=== PATIENT | female | born 1965 | race Caucasian/White ===

== ENCOUNTER 2018-06-09 21:37 | Emergency (ER) | payer BC, SELFPAY ==
[2018-06-09 21:42] VITALS: BP 123/68; PULSE 70; RESP 16; TEMP 37.2; O2SAT 99
--- NOTE | 2018-06-09 21:57 | DI.RAD_ITS ---
SYMPTOMS/DIAGNOSIS: LATERAL FOOT PAIN S/P FALL RIGHT ANKLE: There is no evidence of a fracture or dislocation. RIGHT FOOT: The possibility of a tiny avulsion fracture arising from the distal lateral aspect of the calcaneus is raised. There is no other evidence of a fracture or dislocation. The joint spaces appear intact. No radiopaque foreign body is identified. SUMMARY: Possible small avulsion fracture involving the distal calcaneus with some associated soft tissue swelling. RIGHT LEG: Postsurgical changes involving the proximal tibia are identified. There is no evidence of a feature or dislocation. Note is made of mild soft tissue swelling over the anterior portion of the ankle. SUMMARY: There is no evidence of an acute fracture or dislocation. Soft tissue swelling is identified.
--- NOTE | 2018-06-09 21:59 | W.ED.GENAD ---
Discharge Plan Disposition Patient Disposition: HOME Condition: Stable Discharge Details Chief Complaint: Orthopedic Clinical Impression: Avulsion fracture of calcaneus, Contusion of multiple sites of right leg Reason For Visit: right foot pain Primary Care Provider: Doreen Larios ED Provider: Lowell Espinosa Home Meds and New Rx's Prescriptions: No Action galantamine 12 mg tablet 12 mg PO BID Qty: 60 RF: 6 sumatriptan succinate [Imitrex] 100 MG tablet 100 mg PO ONCE RF: 0 clotrimazole-betamethasone [Lotrisone] 45 GM cream 45 gm Topical PRN RF: 0 montelukast [Singulair] 10 MG tablet 10 mg PO DAILY RF: 0 albuterol sulfate [ProAir HFA] 8.5 GM HFA aerosol inhaler 2 puff Inhalation Q6H PRN RF: 0 estradiol 1 EACH patch weekly 1 ea Transdermal . DIRECTED RF: 0 cetirizine 10 MG tablet 10 mg PO DAILY RF: 0 hydrocortisone valerate 15 GM cream 15 gm Topical BID RF: 0 nifedipine [Adalat CC] 30 MG tablet extended release 30 mg PO DAILY RF: 0 omeprazole 20 MG capsule,delayed release(DR/EC) 20 mg PO BID RF: 0 budesonide-formoterol [Symbicort] 10.2 GM HFA aerosol inhaler 1 puff Inhalation BID RF: 0 azelastine-fluticasone [Dymista] 23 GM spray,non-aerosol 23 gm NS BID RF: 0 linaclotide [Linzess] 145 MCG capsule 145 mcg PO EVERY OTHER DAY RF: 0 linaclotide [Linzess] 72 MCG capsule 72 mcg PO EVERY OTHER DAY RF: 0 memantine [Namenda] 5 MG tablet 5 mg PO BID Qty: 60 RF: 6 Discharge Instructions Instructions: Contusion in Adults (ED), Avulsion Fracture (ED) Additional Instructions: You may continue to use [id number] pain medications such as ibuprofen or acetaminophen as needed for discomfort. Apply ice to help with swelling. You may perform weightbearing activities as tolerated but you should wear the walking boot until cleared by orthopedist Stand Alone Forms: Work Release Referrals: Reagan Johnston MD [ [facility] STAFF PHYSICIAN] - (Call the office tomorrow for arrangement of follow-up appointment. ) Discharge Data Discharge Date/Time-TO BE ENTERED AT DEPARTURE: 10/15/18 23:47 Medical Decision Making Patient presenting to the emergency department for chief complaint of fall. Patient reports that she actually fell down a couple steps this morning and twisted her right lower leg up underneath her. She states some mild bruising and swelling that she noted this morning but was able to perform some weightbearing activities. Throughout the course of the day pain swelling and bruising has become worsened and she has had minimal weightbearing ability given worsening of symptoms she is presenting to the emergency department for evaluation. Patient describes diffuse pain from knee all the way through lower extremity but most sensitive area of pain is within the lateral foot. There is also ecchymosis noted to the lateral foot. Patient has appropriate pulse sensation and movement but movement is limited by pain. Plan to perform radiological imaging of the lower extremity to rule out any acute fracture but suspicious of multiple contusions. She took ibuprofen prior to arrival and has provided no relief so patient given Tylenol 3# pending results. Review of radiological imaging shows a possible lateral calcaneus avulsion fracture otherwise soft tissue swelling. Patient reassessed and does state significant more pain in palpation of the lateral calcaneus. patient placed in a walking boot and diagnosed with avulsion fracture along with multiple contusions. Patient was placed on the orthopedic follow-up list due to avulsion fracture. After discussion of diagnosis and plan of care patient has no further needs, questions, or concerns and states clear understanding to return to the emergency department for any worsening symptoms. HPI General Mode of arrival: wheelchair. Date/Time Provider Initiated Documentation: 06/09/18 21:50. Limitations to Documentation: no limitations. Information obtained by: patient. History of Present Illness 52 year old F presents to the emergency department with the chief complaint of Right foot pain, described as moderate, with intensity rated at 5. Quality is described as aching, and is localized to the right and lower extremity. Patient proximal. Patient started experiencing this hour(s) (14) and it has been constant. No relieving factors improve symptom(s), No exacerbating factors reported . Patient notes no other symptoms.. Patient did receive the following treatments prior to arrival, NSAID Related Data Home Medications Medication Instructions Recorded Confirmed albuterol sulfate [ProAir HFA] 2 puff INHALATION Q6H PRN inhaler 03/28/15 05/05/18 NS clotrimazole-betamethasone 45 gm TOPICAL PRN NS 03/28/15 06/09/18 [Lotrisone] estradiol 1 ea TRANSDERMAL . DIRECTED 03/28/15 06/09/18 script NS montelukast [Singulair] 10 mg PO DAILY tab-cap NS 03/28/15 05/05/18 sumatriptan succinate [Imitrex] 100 mg PO ONCE tab-cap NS 03/28/15 06/09/18 azelastine-fluticasone [Dymista 23 gm NS BID script 11/11/17 06/09/18 Nasal [place]] budesonide-formoterol [Symbicort 1 puff INHALATION BID inhaler 11/11/17 05/05/18 160/4.5 Mcg Inhaler] cetirizine 10 mg PO DAILY tab-cap 11/11/17 06/09/18 hydrocortisone valerate 15 gm TOPICAL BID 11/11/17 06/09/18 linaclotide [Linzess] 72 mcg PO EVERY OTHER DAY 11/11/17 06/09/18 linaclotide [Linzess] 145 mcg PO EVERY OTHER DAY 11/11/17 06/09/18 nifedipine [Adalat Cc] 30 mg PO DAILY tab-cap 11/11/17 06/09/18 omeprazole 20 mg PO BID tab-cap 11/11/17 06/09/18 memantine [Namenda] 5 mg PO BID #60 tab-cap 04/22/18 06/09/18 galantamine 12 mg tablet 12 mg PO BID #60 tab 05/05/18 06/09/18 Previous Rx's Medication Instructions Recorded memantine [Namenda] 5 mg PO BID #60 tab-cap 04/22/18 galantamine 12 mg tablet 12 mg PO BID #60 tab 05/05/18 Allergies Allergy/AdvReac Type Severity Reaction Status Date / Time animal,grass,smoke,tree Allergy Unknown Uncoded 06/09/18 21:46 pllen, molds contrast dye Allergy Unknown Uncoded 06/09/18 21:46 General Stated Complaint: Orthopedic YANETH: 4 Review of Systems Constitutional Reports system reviewed and no additional complaints, except as docu Cardiovascular Reports system reviewed and no additional complaints, except as docu Respiratory Reports system reviewed and no additional complaints, except as docu Musculoskeletal Reports as per HPI Neurologic Denies sensory deficit PFSH Family History Other Personal history of malignant neoplasm Medical History Postnasal drip (Chronic 04/05/14) Allergic rhinitis (Chronic 11/04/13) 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) Screening for colorectal cancer (Chronic) Mild cognitive impairment (Chronic) Asthma Chondromalacia Depression History of gastroesophageal reflux (GERD) History of kidney stones Migraine Social History Smoking/Tobacco Use Status: Never Surgical History Colonoscopy - IV Sedation (05/27/15) Knee surgery Exam Const General: not in acute distress and not diaphoretic Orientation: alert, awake and oriented x3 Resp Effort & Inspection: normal respiratory effort and able to speak in complete sentences Cardio Rate: regular rate Rhythm: regular rhythm Extrem Right lower extremity: hip/thigh Details: normal to inspection; no tenderness, knee Details: normal ROM, lower leg Details: tenderness Location: of the posterior calf, of the proximal fibula, of the midshaft tibia, of the midshaft fibula, of the distal tibia and of the distal fibula, ankle Details: tenderness (Diffuse), swelling Details: diffusely and normal ROM and foot Details: normal capillary refill, tenderness Location: of the dorsal foot Location: laterally, of the plantar foot, of the lateral foot Location: in the mid-section, proximally and at the base of 5th metatarsal and of the base of the 5th metatarsal and ecchymosis Course Vital Signs Temperature 37.2 C 06/09/18 21:42 Pulse 70 06/09/18 21:42 Respiratory Rate 16 06/09/18 21:42 Blood Pressure 123/68 06/09/18 21:42 Pulse Oximetry 99 06/09/18 21:42 Temperature 37.2 C 06/09/18 21:42 Temperature Source Temporal Artery Scan 06/09/18 21:42 Pulse 70 06/09/18 21:42 Respiratory Rate 16 06/09/18 21:42 Blood Pressure 123/68 06/09/18 21:42 Pulse Oximetry 99 06/09/18 21:42 Oxygen Delivery Method Room Air 06/09/18 21:42 Oxygen Flow Rate 0 06/09/18 21:42 Pain Level 5 06/09/18 21:42
--- NOTE | 2018-06-09 22:15 | ED.GENADUL_ITS ---
Discharge Plan Disposition Patient Disposition: HOME Condition: Stable Discharge Details Chief Complaint: Orthopedic Clinical Impression: Avulsion fracture of calcaneus, Contusion of multiple sites of right leg Reason For Visit: right foot pain Primary Care Provider: Doreen Larios ED Provider: Lowell Espinosa Home Meds and New Rx's Prescriptions: No Action galantamine 12 mg tablet 12 mg PO BID Qty: 60 RF: 6 sumatriptan succinate [Imitrex] 100 MG tablet 100 mg PO ONCE RF: 0 clotrimazole-betamethasone [Lotrisone] 45 GM cream 45 gm Topical PRN RF: 0 montelukast [Singulair] 10 MG tablet 10 mg PO DAILY RF: 0 albuterol sulfate [ProAir HFA] 8.5 GM HFA aerosol inhaler 2 puff Inhalation Q6H PRN RF: 0 estradiol 1 EACH patch weekly 1 ea Transdermal . DIRECTED RF: 0 cetirizine 10 MG tablet 10 mg PO DAILY RF: 0 hydrocortisone valerate 15 GM cream 15 gm Topical BID RF: 0 nifedipine [Adalat CC] 30 MG tablet extended release 30 mg PO DAILY RF: 0 omeprazole 20 MG capsule,delayed release(DR/EC) 20 mg PO BID RF: 0 budesonide-formoterol [Symbicort] 10.2 GM HFA aerosol inhaler 1 puff Inhalation BID RF: 0 azelastine-fluticasone [Dymista] 23 GM spray,non-aerosol 23 gm NS BID RF: 0 linaclotide [Linzess] 145 MCG capsule 145 mcg PO EVERY OTHER DAY RF: 0 linaclotide [Linzess] 72 MCG capsule 72 mcg PO EVERY OTHER DAY RF: 0 memantine [Namenda] 5 MG tablet 5 mg PO BID Qty: 60 RF: 6 Discharge Instructions Instructions: Contusion in Adults (ED), Avulsion Fracture (ED) Additional Instructions: You may continue to use [id number] pain medications such as ibuprofen or acetaminophen as needed for discomfort. Apply ice to help with swelling. You may perform weightbearing activities as tolerated but you should wear the walking boot until cleared by orthopedist Stand Alone Forms: Work Release Referrals: Reagan Johnston MD [ [facility] STAFF PHYSICIAN] - (Call the office tomorrow for arrangement of follow-up appointment. ) Discharge Data Discharge Date/Time-TO BE ENTERED AT DEPARTURE: 10/15/18 23:47 Medical Decision Making Patient presenting to the emergency department for chief complaint of fall. Patient reports that she actually fell down a couple steps this morning and twisted her right lower leg up underneath her. She states some mild bruising and swelling that she noted this morning but was able to perform some weightbearing activities. Throughout the course of the day pain swelling and bruising has become worsened and she has had minimal weightbearing ability given worsening of symptoms she is presenting to the emergency department for evaluation. Patient describes diffuse pain from knee all the way through lower extremity but most sensitive area of pain is within the lateral foot. There is also ecchymosis noted to the lateral foot. Patient has appropriate pulse sensation and movement but movement is limited by pain. Plan to perform radiological imaging of the lower extremity to rule out any acute fracture but suspicious of multiple contusions. She took ibuprofen prior to arrival and has provided no relief so patient given Tylenol 3# pending results. Review of radiological imaging shows a possible lateral calcaneus avulsion fracture otherwise soft tissue swelling. Patient reassessed and does state significant more pain in palpation of the lateral calcaneus. patient placed in a walking boot and diagnosed with avulsion fracture along with multiple contusions. Patient was placed on the orthopedic follow-up list due to avulsion fracture. After discussion of diagnosis and plan of care patient has no further needs, questions, or concerns and states clear understanding to return to the emergency department for any worsening symptoms. HPI General Mode of arrival: wheelchair . Date/Time Provider Initiated Documentation: 06/09/18 21:50 . Limitations to Documentation: no limitations . Information obtained by: patient . History of Present Illness 52 year old F presents to the emergency department with the chief complaint of Right foot pain, described as moderate, with intensity rated at 5. Quality is described as aching, and is localized to the right and lower extremity. Patient proximal. Patient started experiencing this hour(s) (14) and it has been constant. No relieving factors improve symptom(s), No exacerbating factors reported . Patient notes no other symptoms.. Patient did receive the following treatments prior to arrival, NSAID Related Data Home Medications Medication Instructions Recorded Confirmed albuterol sulfate [ProAir HFA] 2 puff INHALATION Q6H PRN inhaler 03/28/1505/05 NS clotrimazole-betamethasone 45 gm TOPICAL PRN NS 03/28/15 06/09/18 [Lotrisone] estradiol 1 ea TRANSDERMAL . DIRECTED 03/28/15 06/09/18 script NS montelukast [Singulair] 10 mg PO DAILY tab-cap NS 03/28/15 05/05/18 sumatriptan succinate [Imitrex] 100 mg PO ONCE tab-cap NS 03/28/15 06/09/18 azelastine-fluticasone [Dymista 23 gm NS BID script 11/11/17 06/09/18 Nasal [place]] budesonide-formoterol [Symbicort 1 puff INHALATION BID inhaler 11/11/17 160/4.5 Mcg Inhaler] cetirizine 10 mg PO DAILY tab-cap 11/11/17 06/09/18 hydrocortisone valerate 15 gm TOPICAL BID 11/11/17 06/09/18 linaclotide [Linzess] 72 mcg PO EVERY OTHER DAY 11/11/17 06/09/18 linaclotide [Linzess] 145 mcg PO EVERY OTHER DAY 11/11/17 06/09/18 nifedipine [Adalat Cc] 30 mg PO DAILY tab-cap 11/11/17 06/09/18 omeprazole 20 mg PO BID tab-cap 11/11/17 06/09/18 memantine [Namenda] 5 mg PO BID #60 tab-cap 04/22/18 06/09/18 galantamine 12 mg tablet 12 mg PO BID #60 tab 05/05/18 06/09/18 Previous Rx's Medication Instructions Recorded memantine [Namenda] 5 mg PO BID #60 tab-cap 04/22/18 galantamine 12 mg tablet 12 mg PO BID #60 tab 05/05/18 Allergies Allergy/AdvReac Type Severity Reaction Status Date / Time animal,grass,smoke,tree Allergy Unknown Uncoded 06/09/18 21:46 pllen, molds contrast dye Allergy Unknown Uncoded 06/09/18 21:46 General Stated Complaint: Orthopedic YANETH: 4 Review of Systems Constitutional Reports system reviewed and no additional complaints, except as docu Cardiovascular Reports system reviewed and no additional complaints, except as docu Respiratory Reports system reviewed and no additional complaints, except as docu Musculoskeletal Reports as per HPI Neurologic Denies sensory deficit PFSH Family History Other Personal history of malignant neoplasm Medical History Postnasal drip (Chronic 04/05/14) Allergic rhinitis (Chronic 11/04/13) 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) Screening for colorectal cancer (Chronic) Mild cognitive impairment (Chronic) Asthma Chondromalacia Depression History of gastroesophageal reflux (GERD) History of kidney stones Migraine Social History Smoking/Tobacco Use Status: Never Surgical History Colonoscopy - IV Sedation (05/27/15) Knee surgery Exam Const General: not in acute distress and not diaphoretic Orientation: alert, awake and oriented x3 Resp Effort & Inspection: normal respiratory effort and able to speak in complete sentences Cardio Rate: regular rate Rhythm: regular rhythm Extrem Right lower extremity: hip/thigh Details: normal to inspection; no tenderness, knee Details: normal ROM, lower leg Details: tenderness Location: of the posterior calf, of the proximal fibula, of the midshaft tibia, of the midshaft fibula, of the distal tibia and of the distal fibula, ankle Details: tenderness (Diffuse), swelling Details: diffusely and normal ROM and foot Details: normal capillary refill, tenderness Location: of the dorsal foot Location: laterally, of the plantar foot, of the lateral foot Location: in the mid-section, proximally and at the base of 5th metatarsal and of the base of the 5th metatarsal and ecchymosis Course Vital Signs Temperature 37.2 C 06/09/18 21:42 Pulse 70 06/09/18 21:42 Respiratory Rate 16 06/09/18 21:42 Blood Pressure 123/68 06/09/18 21:42 Pulse Oximetry 99 06/09/18 21:42 Temperature 37.2 C 06/09/18 21:42 Temperature Source Temporal Artery Scan 06/09/18 21:42 Pulse 70 06/09/18 21:42 Respiratory Rate 16 06/09/18 21:42 Blood Pressure 123/68 06/09/18 21:42 Pulse Oximetry 99 06/09/18 21:42 Oxygen Delivery Method Room Air 06/09/18 21:42 Oxygen Flow Rate 0 06/09/18 21:42 Pain Level 5 06/09/18 21:42
--- NOTE | 2018-06-09 22:45 | DI.VRAD_ITS ---
EXAM: XR Right Ankle Complete, 3 or more Views EXAM DATE/TIME: 06/09/2018 10:00 PM CLINICAL HISTORY: 52 years old, female; Pain; Ankle; Right; Patient HX: Fall, lateral ankle pain TECHNIQUE: XR Right ankle 3 or more views. COMPARISON: No relevant prior studies available. FINDINGS: Bones/joints: Bone mineralization is age-appropriate. There is no evidence of fracture. No evidence of dislocation. The joint spaces are adequately preserved; no significant degenerative narrowing and no bony erosion seen. Soft tissues: No radiopaque foreign body present. There is soft tissue swelling present. IMPRESSION: 1. No acute osseous abnormality. 2. Soft tissue swelling only. Dictated and Authenticated by: Weston Izquierdo MD. Ordering:AUGUST CHAWLA MD
--- NOTE | 2018-06-09 22:47 | DI.VRAD_ITS ---
EXAM: XR Right Foot Complete, 3 or more Views EXAM DATE/TIME: 06/09/2018 10:00 PM CLINICAL HISTORY: 52 years old, female; Pain; Foot; Right; Patient HX: Fall, lateral foot pain TECHNIQUE: XR Right foot 3 or more views. COMPARISON: No relevant prior studies available. FINDINGS: Bones/joints: There may be a tiny avulsion fracture arising from the distal lateral aspect of the calcaneus. Bone mineralization is age-appropriate. There is no other evidence of fracture. No evidence of dislocation. The joint spaces are adequately preserved; no significant degenerative narrowing and no bony erosion seen. Soft tissues: No radiopaque foreign body present. There is soft tissue swelling present. IMPRESSION: Possible avulsion fracture of the distal calcaneus with soft tissue swelling. Dictated and Authenticated by: Weston Izquierdo MD. Ordering:AUGUST CHAWLA MD
--- NOTE | 2018-06-09 22:49 | DI.VRAD_ITS ---
EXAM: XR Right Tibia and Fibula, 2 Views EXAM DATE/TIME: 06/09/2018 10:18 PM CLINICAL HISTORY: 52 years old, female; Pain; Ankle and lower leg; Right; Prior surgery; Patient HX: Fall, distal tib/fib, lat ankle, lat foot pain TECHNIQUE: XR Right tibia and fibula 2 views COMPARISON: No relevant prior studies available. FINDINGS: Bones/joints: Old surgical changes seen in the proximal right tibia. Bone mineralization is age-appropriate. There is no evidence of fracture. No evidence of dislocation. The joint spaces are adequately preserved; no significant degenerative narrowing and no bony erosion seen. Soft tissues: Mild soft tissue swelling seen at the anterior ankle. No radiopaque foreign body present. IMPRESSION: 1. No acute osseous abnormality. 2. Soft tissue swelling only. Dictated and Authenticated by: Weston Izquierdo MD. Ordering:AUGUST CHALWA MD
== END 2018-06-09 23:47 | disposition home or self-care (01) ==
PROVIDERS: Emergency Provider Nurse Practitioner Family; PCP Physician Assistant Medical
DX: S92.034A Nondisplaced avulsion fracture of tuberosity of right calcaneus, initial encounter for closed fracture (principal); S80.11XA Contusion of right lower leg, initial encounter; W10.8XXA Fall (on) (from) other stairs and steps, initial encounter
CPT/HCPCS: 28400; 73590; 73610; 73630; L4361

== ENCOUNTER 2018-08-04 14:49 | Outpatient (CLI) | payer BC, SELFPAY ==
--- NOTE | 2018-08-04 14:45 | DI.RAD_ITS ---
SYMPTOM/DIAGNOSIS: F/U RT ANKLE FX RIGHT ANKLE: Comparison is made with 09 Jun 2018. No fracture or other bony abnormality is seen. The ankle mortise is not widened. IMPRESSION: Negative right ankle.
== END 2018-08-04 15:09 ==
PROVIDERS: PCP Physician Assistant Medical; Visit Provider Orthopaedic Surgery
DX: S92.034D Nondisplaced avulsion fracture of tuberosity of right calcaneus, subsequent encounter for fracture with routine healing (principal)
CPT/HCPCS: 73610

== ENCOUNTER 2018-12-09 10:29 | Outpatient (REF) | payer BC, SELFPAY ==
[2018-12-09 22:13] LABS: Abs Immature Grans 0.01 k/cumm (0.0-0.09); Absolute Basophil Count 0.06 k/cumm (0.0-0.2); Absolute Eosinophil Count 0.05 k/cumm (0.0-0.7); Absolute Lymphocyte Count 1.04 k/cumm (1.2-3.4); Absolute Monocyte Count 0.39 k/cumm (0.11-0.7); Absolute Neutrophil Count 2.95 k/cumm (1.2-6.7); Basophils % 1.3; Eosinophils % 1.1; HCT 45.3 % (36.0-46.0); Immature Grans % 0.2; Lymphocytes % 23.1; Mean Corp. HGB Concentration 33.1 g/dL (32.0-36.0); Mean Corpuscular Hemoglobin 30.8 pg (27.0-33.0); Mean Platelet Volume 10.1 fL (8.0-11.0); Monocytes % 8.7; Neutrophils % 65.6; Platelet Count 197 x1000/uL (130-400); RBC 4.87 m/cumm (4.00-5.20); RBC Distribution Width 13.8 % (11.7-14.6)
[2018-12-09 22:26] LABS: Anion Gap 7.9 mmol/L (3-11); BUN 18 mg/dL (7-18); CO2 29.1 mmol/L (21.0-32.0); CREATININE 0.83 mg/dL (0.55-1.02); Calcium 8.5 mg/dL (8.5-10.1); Chloride 102 mmol/L (98-107); Cholesterol 182 mg/dL (50-200); Ferritin 72 ng/mL (8-388); Glucose 83 mg/dL (70-100); HDL Cholesterol 68 mg/dL (40-60); LDL CHOLESTEROL 100 mg/dL (<100); Sodium 139 mmol/L (136-145); TSH 2.63 uIU/mL (0.358-3.74); Triglyceride 70 mg/dL (30-150)
[2018-12-09 22:29] LABS: Folate > 20.0 ng/mL (8.6-20.0)
[2018-12-09 22:31] LABS: Hemoglobin A1C 5.5 % (4.5-6.2)
== END 2018-12-09 10:49 ==
LOC: NCHCN 10:29
PROVIDERS: PCP Physician Assistant Medical; Visit Provider Nurse Practitioner Family
DX: R53.83 Other fatigue (principal); G47.00 Insomnia, unspecified; L65.9 Nonscarring hair loss, unspecified; J45.998 Other asthma
CPT/HCPCS: 80048; 80061; 83721; 82728; 82746; 83036; 84443; 85025

== ENCOUNTER 2020-03-30 03:20 | Outpatient (CLI) | payer BC, SELFPAY ==
--- NOTE | 2020-03-30 | DI.MRI_ITS ---
EXAM: MR UPPER JOINT LT WO CLINICAL HISTORY: NONTRAUMATIC TEAR LT SUPRASPINATUS TENDON, PAIN. TECHNIQUE: Multiplanar multisequence MRI was performed. COMPARISON: No exams were available for comparison FINDINGS: MR examination of the shoulder was performed according to the usual protocol. There is no significant effusion of the glenohumeral joint. No fluid in the subacromial subdeltoid b ursa. Bones and labrum: No bony signal abnormality seen. Glenoid labrum appears intact. Rotator cuff: Supraspinatus, subscapularis, infraspinatus, and teres minor muscles and tendons show normal signal and no evidence of a tear. Rotator interval structures are unremarkable with no evidence of a tear. Biceps tendon and anchor: Biceps tendon and anchor show normal signal and no evidence of a tear. Bic eps tendon is normally positioned in the bicipital groove. IMPRESSION: Negative shoulder MRI. DATA REPOSITORY:
== END 2020-03-30 03:40 ==
PROVIDERS: PCP Nurse Practitioner Family; Visit Provider Specialist
DX: M25.512 Pain in left shoulder (principal)
CPT/HCPCS: 73221

== ENCOUNTER 2020-08-10 01:27 | Outpatient (CLI) | payer BC, SELFPAY ==
[2020-08-10 08:13] LABS: Calculated LDL 99 mg/dL (<100); Cholesterol 184 mg/dL (<200); Glucose 81 mg/dL (74-106); HDL Cholesterol 76 mg/dL (40-60); Triglyceride 47 mg/dL (<150)
== END 2020-08-10 01:47 ==
PROVIDERS: PCP Nurse Practitioner Family; Visit Provider Nurse Practitioner Family
DX: Z00.00 Encounter for general adult medical examination without abnormal findings (principal); Z13.220 Encounter for screening for lipoid disorders; Z13.1 Encounter for screening for diabetes mellitus
CPT/HCPCS: 36415; 80061; 82947

== ENCOUNTER 2021-03-31 04:44 | Outpatient (CLI) | payer BC, SELFPAY ==
--- NOTE | 2021-03-31 09:55 | DI.RAD_ITS ---
Exam(s) XR LUMBAR SPINE COMPLETE EXAM: XR LUMBAR SPINE COMPLETE CLINICAL HISTORY: LUMBAR PAIN, M54.5 TECHNIQUE: COMPARISON: No exams were available for comparison FINDINGS: Five views were obtained. The intervertebral disc spaces are fairly well maintained. No compression fracture identified. No evidence of spondylolysis or spondylolisthesis. Minimal facet degenerative changes noted. No other bony or soft tissue abnormality seen. Incidental note is made of an IUD in the pelvic midline. IMPRESSION: Minimal degenerative changes lumbar spine. RADIATION DOSE DELIVERED: Total DLP
== END 2021-03-31 05:04 ==
PROVIDERS: PCP Nurse Practitioner Family; Visit Provider Nurse Practitioner Family
DX: M47.816 Spondylosis without myelopathy or radiculopathy, lumbar region (principal)
CPT/HCPCS: 72110

== ENCOUNTER 2021-03-31 09:43 | Outpatient (REF) | payer BC, SELFPAY ==
[2021-03-31 14:15] LABS: Anion Gap 2.8 mmol/L (3-11); BUN 12 mg/dL (7-18); CO2 30.2 mmol/L (21.0-32.0); CREATININE 0.9 mg/dL (0.55-1.02); Calcium 8.7 mg/dL (8.5-10.1); Calculated LDL 105 mg/dL (<100); Chloride 104 mmol/L (98-107); Cholesterol 184 mg/dL (<200); Glucose 77 mg/dL (74-106); HDL Cholesterol 67 mg/dL (40-60); Sodium 137 mmol/L (136-145); Triglyceride 64 mg/dL (<150)
== END 2021-03-31 09:44 | disposition home or self-care (01) ==
LOC: NCHCN 09:43
PROVIDERS: PCP Nurse Practitioner Family; Visit Provider Nurse Practitioner Family
DX: Z00.00 Encounter for general adult medical examination without abnormal findings (principal); Z13.1 Encounter for screening for diabetes mellitus; Z13.220 Encounter for screening for lipoid disorders; Z79.899 Other long term (current) drug therapy
CPT/HCPCS: 80048; 80061

== ENCOUNTER 2021-06-19 07:13 | Outpatient (REF) | payer BC, SELFPAY | END 2021-06-19 07:14 | disposition home or self-care (01) | LOC: LBN 07:13 | PROVIDERS: PCP Nurse Practitioner Family; Visit Provider Internal Medicine Endocrinology, Diabetes & Metabolism | DX: M81.0 Age-related osteoporosis without current pathological fracture (principal) | CPT/HCPCS: 82140; 82340; 82436; 82507; 82570; 83735; 83935; 83945; 83986; 84105; 84133; 84300; 84392; 84540; 84560; 81050 ==

== ENCOUNTER 2021-08-09 00:59 | Outpatient (CLI) | payer BC, SELFPAY ==
[2021-08-09 11:04] LABS: Source Nasal/Nares
[2021-08-09 14:02] LABS: COVID-19 PCR Negative (Negative)
== END 2021-08-09 01:00 | disposition home or self-care (01) ==
LOC: LBO 00:59
PROVIDERS: PCP Nurse Practitioner Family; Visit Provider Podiatrist
DX: Z20.822 Contact with and (suspected) exposure to COVID-19 (principal)
CPT/HCPCS: 87635

== ENCOUNTER 2021-08-11 07:17 | Day surgery (SDC) | payer BC, SELFPAY ==
[2021-08-11] VITALS (8 sets, daily range): BP systolic 85–125; BP diastolic 46–83; PULSE 53–84; RESP 15–20; TEMP 36–36.5; O2SAT 100; BMI 23.0
--- NOTE | 2021-08-11 06:57 | HPE_ITS ---
Date of service: 08/11/21 Time of Service: 06:57 History of Present Illness History of Present Illness Chief Complaint: Symptomatic left bunion and bunionette deformities Narrative: 55-year-old female with increasing pain associated with a left bunion and bunionette causing pain on a daily basis interfering with shoe gear and ambulatory activity. Palliative treatment although helpful failed to provide lasting relief of symptoms and she is opting for surgical intervention. PFS All Active Problems Screening for colorectal cancer (Chronic) 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) Allergic rhinitis (Chronic 11/04/13) Postnasal drip (Chronic 04/05/14) Mild cognitive impairment (Chronic) Allergic fungal sinusitis (Acute 07/20/13) Allergic rhinitis due to pollen (Chronic 08/08/15) Closed nondisplaced avulsion fracture of tuberosity of right calcaneus (Acute 06/09/18) Because of persistent symptoms and tenderness over the anterior talus i think repeat x-rays are indicated to rule out an osteochondral injury to the talus. These are performed today and appear normal. I inform the patient that it will take along time before she is asymptomatic. I recommend a trial of topricin to help with the discomfort. follow-up with me an needed. 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 Do you feel safe at home: Yes Do you feel safe in your relationship?: Yes Meds Allergies and Home Medications Allergies Allergy/AdvReac Type Severity Reaction Status Date / Time latex Allergy Intermediate Skin Rash Unverified 12/15/21 12:30 animal,grass,smoke,tree Allergy Unknown Uncoded 08/09/21 12:30 pllen, molds contrast dye Allergy Unknown Unknown Uncoded 08/09/21 12:30 Home Medications Medication Instructions Recorded Confirmed Type albuterol sulfate [ProAir HFA] 2 puff INHALATION Q6H PRN inhaler 03/28/15 08/09/21 History NS clotrimazole-betamethasone 45 gm TOPICAL PRN NS 03/28/15 08/09/21 History [Lotrisone] estradiol 1 ea TRANSDERMAL . DIRECTED 03/28/15 08/09/21 History script NS montelukast [Singulair] 10 mg PO DAILY tab-cap NS 03/28/15 08/09/21 History sumatriptan succinate [Imitrex] 100 mg PO ONCE tab-cap NS 03/28/15 08/09/21 History azelastine-fluticasone [Dymista 23 gm NS BID script 11/11/17 08/09/21 History Nasal [place]] budesonide-formoterol [Symbicort 1 puff INHALATION BID inhaler 11/11/17 08/09/21 History 160/4.5 Mcg Inhaler] cetirizine 10 mg PO DAILY tab-cap 11/11/17 08/09/21 History hydrocortisone valerate 15 gm TOPICAL BID 11/11/17 08/09/21 History linaclotide [Linzess] 72 mcg PO EVERY OTHER DAY 11/11/17 08/09/21 History linaclotide [Linzess] 145 mcg PO EVERY OTHER DAY 11/11/17 08/09/21 History memantine 5 mg tablet 5 mg PO BID #180 tab-cap 01/24/21 08/09/21 Rx galantamine 12 mg tablet 12 mg PO BID #180 tab 04/03/21 08/09/21 Rx Exam Narrative Exam Narrative: Head normocephalic Eyes PERRLA Hearing is adequate for normal interaction Uvula is midline airway looks assessable Heart had regular rate and rhythm detected no gallops rubs or murmurs Lung will were clear Abdomen was soft bowel sounds appreciated x4 Peripheral pulses are manually palpable at the ankles 2 out of 4 capillary fill is under 3 seconds to all toes no edema Muscle groups 5 out of 5 bilaterally Skeletal exam reveals periarticular tenderness around the dorsal medial and medial aspects of the left first MPJ as well as along the lateral and lateral plantar aspects of the fifth metatarsal head phalangeal joint. There is good range of motion without crepitance. Neurologically grossly intact Impressions: HAV deformity left Bunionette deformity left foot Plan: [place] been brought to the OR for surgical correction of the left bunion and bunionette deformities. She understands potential risk and complications of surgery pertaining to pain, scarring, infection, nerve injury, CRPS, stiffness of the joints, over or under correction of the deformities potentially requiring revisional procedures. No promises been made to the final outcome of surgery. Informed consent has been obtained.
[2021-08-11] MEDS: Lactated Ringers 1,000 ML 80 ML IV (07:46)
--- NOTE | 2021-08-11 08:02 | ANES.PREOP_ITS ---
General Info Date of Service Date Performed: 08/11/21 Height: 5 ft 8 in Weight: 68.7 kg Body Mass Index (BMI): 23.0 Surgical Procedure: Operation Date: 08/11/21 08:40 Proposed Procedures Side Surgeon p Bunionectomy Fabian/Fabys Bunionette Left Marques Sosa DPM Meds Allergies and Home Medications Allergies Allergy/AdvReac Type Severity Reaction Status Date / Time latex Allergy Intermediate Skin Rash Unverified 08/09/21 12:30 animal,grass,smoke,tree Allergy Unknown Uncoded 08/09/21 12:30 pllen, molds contrast dye Allergy Unknown Unknown Uncoded 08/09/21 12:30 Home Medication Medication Instructions Recorded albuterol sulfate [ProAir HFA] 2 puff INHALATION Q6H PRN inhaler 03/28/15 NS clotrimazole-betamethasone 45 gm TOPICAL PRN NS 03/28/15 [Lotrisone] estradiol 1 ea TRANSDERMAL . DIRECTED 03/28/15 script NS montelukast [Singulair] 10 mg PO DAILY tab-cap NS 03/28/15 sumatriptan succinate [Imitrex] 100 mg PO ONCE tab-cap NS 03/28/15 azelastine-fluticasone [Dymista 23 gm NS BID script 11/11/17 Nasal [place]] budesonide-formoterol [Symbicort 1 puff INHALATION BID inhaler 11/11/17 160/4.5 Mcg Inhaler] cetirizine 10 mg PO DAILY tab-cap 11/11/17 hydrocortisone valerate 15 gm TOPICAL BID 11/11/17 linaclotide [Linzess] 72 mcg PO EVERY OTHER DAY 11/11/17 linaclotide [Linzess] 145 mcg PO EVERY OTHER DAY 11/11/17 memantine 5 mg tablet 5 mg PO BID #180 tab-cap 01/24/21 galantamine 12 mg tablet 12 mg PO BID #180 tab 04/03/21 Current Visit Medications: Current Medications Generic Name Dose Route Start Last Admin Trade Name Freq PRN Reason Stop Dose Admin Sodium Chloride 500 mls @ 0 mls/hr 08/11/21 06:00 Saline 500ml Bag IV PRN PRN As Directed Cefazolin Sodium/Dextrose 1 gm in 50 mls @ 100 mls/hr 08/11/21 06:00 Ancef Duplex IVPB PREOP NIEVES Ringer's Solution 1,000 mls @ 80 mls/hr 08/11/21 06:00 08/11/21 07:46 IV 09/09/21 23:59 80 mls/hr INFUSION NIEVES Administration IV Miscellaneous Supplies 1 each 08/11/21 06:00 Iv Access IV DIRECTED NIEVES IV Miscellaneous Supplies 1 each 08/11/21 06:00 Iv Access IV 09/09/21 23:59 DIRECTED NIEVES Povidone Iodine 0 ml 08/11/21 06:00 Povidone-Iodine Soln. 118 Ml Btl TP DIRECTED NIEVES Sodium Chloride 0 ml 08/11/21 06:00 Normal Saline Flush 10 Ml Syr IVP PRN PRN Sodium Chloride 0 ml 08/11/21 06:00 Normal Saline Flush 10 Ml Syr IV 09/09/21 23:59 PRN PRN Sodium Chloride 0 ml 08/11/21 06:00 Normal Saline 10 Ml Vial IJ 09/09/21 23:59 DIRECTED PRN Sterile Water 0 ml 08/11/21 06:00 Water,Injection,Sterile 10 Ml Vial IJ 09/09/21 23:59 DIRECTED PRN PFSH Active Problems Active Problems: Problem Status Onset Code Screening for colorectal cancer Z12.11, Z12.12 Abnormal auditory perception 05/10/15 H93.299 Allergic rhinitis 11/04/13 J30.9 Postnasal drip 04/05/14 R09.82 Mild cognitive impairment G31.84 Allergic fungal sinusitis 07/20/13 J30.89, B49 Allergic rhinitis due to pollen 08/08/15 J30.1 Closed nondisplaced avulsion fracture of tuberosity of right calcaneus 06/09/18 S92.034A Medical History Medical History Chondromalacia Depression History of gastroesophageal reflux (GERD) History of kidney stones Migraine Surgical History Surgical History Colonoscopy - IV Sedation (05/27/15) SALLY ARAYA Hx of shoulder surgery Knee surgery Tobacco Smoking/Tobacco Use Status: Never Alcohol Alcohol Intake: never Substance Use Substance use: Never Substance use type: does not use Vital Signs and Lab Results Vital Signs Most Recent Vital Signs in EMR: Most Recent Vital Signs Temp Pulse Resp BP Pulse Ox 36 C L 84 18 125/83 100 08/11/21 07:20 08/11/21 07:20 08/11/21 07:20 08/11/21 07:20 08/11/21 07:20 Lab Results Blood Type / Crossmatch: No Data to Display Complete Blood Count: No Data to Display Complete Metabolic Panel: No Data to Display Liver Function Panel: No Data to Display Coagulation Panel: No Data to Display Cardiac Panel: No Data to Display Arterial Blood Gas: No Data to Display Venous Blood Gas: No Data to Display Pancreas Panel: No Data to Display Thyroid Panel: No Data to Display Infectious Disease: Coronavirus (COVID-19)(PCR) Negative (Negative) 08/09/21 08:55 08/09/21 Coronavirus 2019 Source Nasal/Nares 08/09/21 08:55 08/09/21 Blood Cultures: No Data to Display Toxicology Panel: No Data to Display Anesthesia Assessment and Plan Anesthesia History Personal History: PONV Family History: No Family History of Anesthesia Complications Exercise Tolerance Exercise Tolerance: Metabolic Equivalents>4 Pertinent Negatives Pertinent Negatives: No Symptoms of GERD, No Major Cardiovascular Symptoms or Complaints, No Major Pulmonary Symptoms or Complaints and No History of CVA/TIA Cardiac & Pulmonary Exam Cardiac Exam: Normal S1/S2 Heart Sounds Pulmonary Exam: Clear Bilateral Breath Sounds Implantable Cardiac Device Does patient have a Pacemaker or an ICD?: No Airway Exam Known Difficult Airway: No Mallampati Class: 2 Mouth Opening: Narrow (< 3cm) Thyromental Distance: Greater than 3 cm Neck Range of Motion: Full ROM Neck Circumference: Normal Teeth Condition: Normal Dentition ASA Classification ASA Score: ASA 2 Emergency Case?: No NPO Status NPO Status: NPO Clears >2 hours, Solids >8 hours Anesthesia Plan Resuscitation Status: Full Code Anesthesia Technique: General Anesthesia Airway Planned: Natural Airway Monitors Used: Standard Monitors
[2021-08-11] MEDS: ceFAZolin 1 GM/50 ML BAG IVPB (08:31)
[2021-08-11] MEDS: Bupivacaine 0.5% Pres-Free 30 ML VIAL (08:47)
[2021-08-11] MEDS: Lidocaine 1% Multi-Dose 50 ML VIAL (08:47)
[2021-08-11] MEDS: Dexamethasone 4 MG/ML VIAL (09:47)
--- NOTE | 2021-08-11 09:56 | W.PM.DSUDISC ---
Discharge Plan Disposition Patient Disposition: HOME Condition: Good Discharge Details Reason For Visit: Correction left hallux valgus and bunionette defor Attending Provider: Marques Sosa Primary Care Provider: Janet Davey Home Meds and New Rx's Prescriptions: New oxycodone-acetaminophen 5-325 mg tablet 1 tab PO Q6H PRN (Reason: Postop pain) Qty: 14 RF: 0 ibuprofen 600 mg tablet 600 mg PO Q6H PRN (Reason: Pain and inflammation) Qty: 60 RF: 0 Continued galantamine 12 mg tablet 12 mg PO BID Qty: 180 RF: 3 sumatriptan succinate [Imitrex] 100 MG tablet 100 mg PO ONCE RF: 0 clotrimazole-betamethasone [Lotrisone] 45 GM cream 45 gm Topical PRN RF: 0 montelukast [Singulair] 10 MG tablet 10 mg PO DAILY RF: 0 albuterol sulfate [ProAir HFA] 8.5 GM HFA aerosol inhaler 2 puff Inhalation Q6H PRN RF: 0 estradiol 1 EACH patch weekly 1 ea Transdermal . DIRECTED RF: 0 cetirizine 10 MG tablet 10 mg PO DAILY RF: 0 hydrocortisone valerate 15 GM cream 15 gm Topical BID RF: 0 budesonide-formoterol [Symbicort] 10.2 GM HFA aerosol inhaler 1 puff Inhalation BID RF: 0 azelastine-fluticasone [Dymista] 23 GM spray,non-aerosol 23 gm NS BID RF: 0 Linzess 145 MCG capsule 145 mcg PO EVERY OTHER DAY RF: 0 Linzess 72 MCG capsule 72 mcg PO EVERY OTHER DAY RF: 0 memantine [Namenda] 5 mg tablet 5 mg PO BID Qty: 180 RF: 3 Discharge Instructions Activity:: Elevate Remove Dressings/Wound Care:: Do Not Remove Shower/Bathe:: Cover Diet:: Normal Diet Discharge Orders Discharge Orders: Discharge Order (Routine); Ordered 08/11/21 Ordered By: Marques Sosa DS: Diagnosis Discharge Diagnosis (1) Hallux valgus (acquired), left foot: Status: Acute
--- NOTE | 2021-08-11 10:00 | ROE_ITS ---
Date of service: 08/11/21 Time of Service: 10:00 Operative Note Operative Note DATE OF PROCEDURE: 08/11/21 PRE-OP DIAGNOSIS: Hallux valgus deformity left foot with bunionette PROCEDURE: Silver bunionectomy, arthroplasty fifth MPJ SURGEON: Marques Sosa ANESTHESIA TYPE: General:No Airway Refer to Anesthesia Record ESTIMATED BLOOD LOSS: 1 PATHOLOGY: none sent TOURNIQUET TIME: 57 COMPLICATIONS: None Patient was transported to: same day Patient's condition: stable Indications: 55-year-old female with pain emanating from her left bunion and bunionette deformities interfering with comfortable shoe gear and ambulatory activities. She understands risk and complications of surgery pertaining to the potential for pain, scarring, infection, over or under correction of deformities, nerve injury, CRPS, ongoing discomfort potentially requiring revisional procedures. All questions have been answered in detail. No promises made to final outcome of surgery. Procedure Description: Stacy was brought to the operative suite placed in the supine position with the left foot prepped and draped in the usual sterile podiatric fashion. Timeout was performed for safe surgery. Anesthesia being achieved the left foot was exsanguinated well-padded ankle tourniquet inflated 250 mmHg. Attention was directed to the first MPJ where a dorsal incision was made medial to the EHL tendon. The incision was approximately 3 cm in length. The incision was deepened in controlled depth fashion hemostasis acquired by electrocautery as needed. Dissection was carried down removing vital structures medially and laterally until we got down to the joint capsule. The capsule was incised midline longitudinally. The capsule was reflected and the first metatarsal head brought into the wound. Hypertrophy along the medial and medial dorsal aspect was appreciated with partial thickness cartilaginous erosion. Wi th power instrumentation the medial and medial dorsal hyperostosis were resected all rough and bony edges were rasped smooth good correction was identified. Copious irrigation was performed. The joint capsule was subsequently repaired with simple interrupted suture 3-0 Vicryl subcutaneous layer was repaired with simple interrupted suture of 4-0 Vicryl the skin was brought together with continuous running suture of 4-0 Monocryl attention was now directed to the fifth MPJ where a lateral dorsal incision was made approximately 3 cm in length centered over the fifth metatarsal phalangeal joint. Incision was deepened in controlled depth fashion hemostasis achieved with electrocautery as needed. Dissection was carried down to the joint capsule the capsule was incised along the lateral dorsal aspect of the joint and reflected dorsally and plantarly. Modest hypertrophy of the lateral component of the fifth metatarsal and base of the proximal phalanx noted with power instrumentation as well as osteotome and mallet the hypertrophic bone was resected all roughened edges were then rasped smooth. Finger palpation revealed good resection of bone. Copious irrigation was performed. The joint capsule was repaired with simple interrupted suture 3- 0 Vicryl. Subcutaneous layer was repaired with simple interrupted suture of 4-0 Vicryl. The skin was then coapted with simple interrupted suture of 4-0 nylon. 4 mg dexamethasone phosphate was infused equally between the 2 wounds. Sharp and sponge counts were correct at this level. Xeroform fluffs Kerlix rolls and Truong wrap applied tourniquet was released at 57 minutes vascularity returning immediately to all toes. Stacy left the OR with vital signs stable vascular status intact will be followed by myself in the office next week Dictated with Briseida oliveira speaking not reviewed for accuracy
[2021-08-11] MEDS: Droperidol 5 MG/2 ML VIAL 0.625 MG IVP (10:13)
--- NOTE | 2021-08-11 11:54 | W.ANESPOSTOP ---
Postoperative Evaluation Date, Time and Location Date Performed: 08/11/21 Time Performed: 11:54 Patient Location: PACU Vital Signs Most Recent Imported Vital Signs: Most Recent Vital Signs Temp Pulse Resp BP Pulse Ox 36.0 C L 56 L 18 119/76 100 08/11/21 11:10 08/11/21 11:10 08/11/21 11:10 08/11/21 11:10 08/11/21 11:10 Pain Score Most Recent Pain Score: Most Recent Pain Score Pain Level 0 08/11/21 11:10 Assessment Mental Status: Awake (Alert & Oriented to Patient Baseline) Airway and Respiratory Function: Patent airway with normal (patient baseline) respiratory exam Cardiovascular Function: Hemodynamically Stable Hydration Status: Adequately Hydrated Nausea & Vomiting: Active Nausea or Vomiting Present Nausea and Vomiting Management: Nausea present without vomiting, patient wishes to be discharged (Controlled with Anti-emetics) Pain: Pt. Denies Any Pain Peripheral Nerve Block: Patient did not receive a nerve block Postoperative Comments:: Seen earlier today, N/V
== END 2021-08-11 11:28 | disposition home or self-care (01) ==
PROVIDERS: PCP Nurse Practitioner Family; Visit Provider Podiatrist
PROC: (CPT 28292; principal; 2021-08-11 08:30)
DX: M20.12 Hallux valgus (acquired), left foot (principal); M21.622 Bunionette of left foot
CPT/HCPCS: 28295; 28110; J0690; J1100; J1790; J2405

== ENCOUNTER 2021-09-09 15:39 | Outpatient (REF) | payer BC, SELFPAY | END 2021-09-09 15:40 | disposition home or self-care (01) | LOC: LBN 15:39 | PROVIDERS: PCP Nurse Practitioner Family; Visit Provider Physician Assistant Medical | DX: J02.9 Acute pharyngitis, unspecified (principal) | CPT/HCPCS: 87070 ==

== ENCOUNTER 2021-12-25 11:06 | Outpatient (CLI) | payer BC, SELFPAY ==
--- NOTE | 2021-12-25 | DI.RAD_ITS ---
Exam(s) XR CHEST 2V PA LATERAL EXAM: XR CHEST 2V PA LATERAL CLINICAL HISTORY: COUGH R05.8 POST COVID U07.1 TECHNIQUE: 2D digital imaging was performed. COMPARISON: CR CHEST 2 VIEWS PA,LAT from 05/05/2012 FINDINGS: MEDIASTINUM: Normal. HEART: Normal. PULMONARY VASCULATURE: Normal. LUNGS: Hyperinflated, similar to prior. No infiltrates.. PLEURAL SPACE: No pleural effusion or pneumothorax. BONE:Unremarkable for age. IMPRESSION: Hyperinflation. No acute abnormality. DATA REPOSITORY: RADIATION DOSE DELIVERED:
== END 2021-12-25 11:26 ==
PROVIDERS: PCP Nurse Practitioner Family; Visit Provider Physician Assistant Medical
DX: R05.9 Cough, unspecified (principal); J98.4 Other disorders of lung; U09.9 Post COVID-19 condition, unspecified
CPT/HCPCS: 71046

== ENCOUNTER 2021-12-25 12:23 | Outpatient (CLI) | payer BC, SELFPAY ==
[2021-12-25 14:07] LABS: Abs Immature Grans 0.06 10^3/uL (0.0-0.06); Absolute Basophil Count 0.04 10^3/uL (0.0-0.2); Absolute Eosinophil Count 0.02 10^3/uL (0.0-0.7); Absolute Lymphocyte Count 1.33 10^3/uL (1.2-3.4); Absolute Monocyte Count 0.66 10^3/uL (0.1-0.8); Absolute Neutrophil Count 4.87 10^3/uL (1.2-6.7); Basophils % 0.6; Eosinophils % 0.3; HCT 42.1 % (36.0-46.0); Immature Grans % 0.9; Lymphocytes % 19.1; MCH 30.2 pg (27.0-33.0); MCHC 33.3 % (32.0-36.0); MCV 91 fL (80-95); MPV 8.7 fL (8.0-11.0); Monocytes % 9.5; Neutrophils % 69.6; Platelet Count 288 10^3/uL (130-400); RBC 4.63 10^6/uL (3.93-5.22); RDW 12.2 % (11.7-14.6); RDW-SD 40.7 fL; WBC 6.98 10^3/uL (4.4-10.8)
[2021-12-25 15:41] LABS: ALT 40 U/L (14-59); AST 27 U/L (15-37); Albumin 3.9 g/dL (3.4-5.0); Alkaline Phosphatase 75 U/L (46-116); Anion Gap 6.8 mmol/L (3-11); BUN 15 mg/dL (7-18); Bilirubin, Total 0.3 mg/dL (0.2-1.0); CO2 35.2 mmol/L (21.0-32.0); Calcium 9.1 mg/dL (8.5-10.1); Chloride 96 mmol/L (98-107); Estimated GFR 56.95 (mL/min/1.73m2); Glucose 87 mg/dL (74-106); Sodium 138 mmol/L (136-145); Total Protein 7.5 g/dL (6.4-8.2)
[2021-12-25 15:53] LABS: Potassium 2.9 mmol/L (3.5-5.1)
== END 2021-12-25 12:24 | disposition home or self-care (01) ==
LOC: LBO 12:29
PROVIDERS: PCP Nurse Practitioner Family; Visit Provider Physician Assistant Medical
DX: U07.1 COVID-19 (principal); R05.8 Other specified cough
CPT/HCPCS: 36415; 80053; 85025

== ENCOUNTER 2021-12-29 22:53 | Outpatient (REF) | payer BC, SELFPAY ==
[2021-12-29 15:31] LABS: Anion Gap 6.1 mmol/L (3-11); BUN 15 mg/dL (7-18); CO2 32.9 mmol/L (21.0-32.0); CREATININE 0.9 mg/dL (0.55-1.02); Calcium 8.9 mg/dL (8.5-10.1); Chloride 102 mmol/L (98-107); Glucose 74 mg/dL (74-106); Potassium 3.4 mmol/L (3.5-5.1); Sodium 141 mmol/L (136-145)
== END 2021-12-29 22:54 | disposition home or self-care (01) ==
LOC: NCHCN 22:53
PROVIDERS: PCP Nurse Practitioner Family; Visit Provider Physician Assistant Medical
DX: E87.6 Hypokalemia (principal)
CPT/HCPCS: 80048

== ENCOUNTER 2022-01-04 17:13 | Outpatient (REF) | payer BC, SELFPAY ==
[2022-01-04 17:57] LABS: Creatinine,Urine 27.95 mg/dL
[2022-01-04 17:58] LABS: Creatinine,24hr Ur 0.92 g/24hr (0.60-1.80); Total Volume 3300 ml
[2022-01-06 08:14] LABS: Calcium Urine 24 hr 330 mg/24hrs (100-300); Timed Urine Volume 3300 mL
== END 2022-01-04 17:14 | disposition home or self-care (01) ==
LOC: LBN 17:13
PROVIDERS: PCP Nurse Practitioner Family; Visit Provider Internal Medicine Endocrinology, Diabetes & Metabolism
DX: R82.994 Hypercalciuria (principal)
CPT/HCPCS: 81050; 82340; 82570

== ENCOUNTER 2022-01-16 18:33 | Outpatient (REF) | payer BC, SELFPAY ==
[2022-01-16 15:34] LABS: Anion Gap 5.4 mmol/L (3-11); BUN 15 mg/dL (7-18); CO2 33.6 mmol/L (21.0-32.0); CREATININE 0.9 mg/dL (0.55-1.02); Calcium 9.1 mg/dL (8.5-10.1); Chloride 102 mmol/L (98-107); Glucose 83 mg/dL (74-106); Potassium 3.4 mmol/L (3.5-5.1); Sodium 141 mmol/L (136-145)
== END 2022-01-16 18:34 | disposition home or self-care (01) ==
LOC: NCHCN 18:33
PROVIDERS: PCP Nurse Practitioner Family; Visit Provider Nurse Practitioner Family
DX: E87.6 Hypokalemia (principal)
CPT/HCPCS: 80048

== ENCOUNTER 2022-01-30 10:57 | Outpatient (REF) | payer BC, SELFPAY ==
[2022-01-30 16:24] LABS: Potassium 3.4 mmol/L (3.5-5.1)
== END 2022-01-30 10:58 | disposition home or self-care (01) ==
LOC: NCHCN 10:57
PROVIDERS: PCP Nurse Practitioner Family; Visit Provider Nurse Practitioner Family
DX: U09.9 Post COVID-19 condition, unspecified (principal); R19.7 Diarrhea, unspecified; R06.00 Dyspnea, unspecified; R00.0 Tachycardia, unspecified
CPT/HCPCS: 84132

== ENCOUNTER 2022-01-31 03:48 | Outpatient (CLI) | payer BC, SELFPAY ==
[2022-01-31 13:57] LABS: Anion Gap 7.5 mmol/L (3-11); BUN 15 mg/dL (7-18); CO2 32.5 mmol/L (21.0-32.0); CREATININE 0.9 mg/dL (0.55-1.02); Chloride 100 mmol/L (98-107); Glucose 102 mg/dL (74-106); Potassium 3.2 mmol/L (3.5-5.1); Sodium 140 mmol/L (136-145); TSH (W/Ref FT4) 1.61 uIU/mL (0.36-3.74)
[2022-01-31 14:10] LABS: D-Dimer 224 ng/mlFEU (<500)
== END 2022-01-31 03:49 | disposition home or self-care (01) ==
LOC: LBO 03:48
PROVIDERS: PCP Nurse Practitioner Family; Visit Provider Family Medicine
DX: U09.9 Post COVID-19 condition, unspecified (principal); R00.0 Tachycardia, unspecified; R06.09 Other forms of dyspnea; E87.6 Hypokalemia
CPT/HCPCS: 36415; 80048; 84443; 85379

== ENCOUNTER 2022-02-02 09:27 | Outpatient (CLI) | payer BC, SELFPAY ==
[2022-02-02] MEDS: Albuterol HFA 18 GM 200 PUFF INH IH (14:15)
[2022-02-02] MEDS: Inhaler, Assist Device 1 EACH MC (14:16)
--- NOTE | 2022-02-02 14:19 | W.PFT ---
Date of service: 02/02/22 Time of Service: 13:10 Pulmonary Function Test Result Requesting Provider Monica Ramos Indications: Post COVID Interpretation Spirometry: There is no airflow limitation. There is no significant bronchodilator response. Lung Volumes: Lung volumes are normal. Diffusion Capacity: Diffusion is normal. Airway Pressure: Normal airways resistance. Impression Normal pulmonary function testing Clinical Correlation therefore is recommended.
== END 2022-02-02 09:28 | disposition home or self-care (01) ==
PROVIDERS: PCP Nurse Practitioner Family; Visit Provider Family Medicine
DX: R00.0 Tachycardia, unspecified (principal); R09.02 Hypoxemia; R06.00 Dyspnea, unspecified; J45.998 Other asthma; U09.9 Post COVID-19 condition, unspecified
CPT/HCPCS: 94060; 94726; 94729

== ENCOUNTER 2022-02-13 01:07 | Outpatient (RCR) | payer BC, SELFPAY ==
--- NOTE | 2022-02-13 10:45 | HOLTER_ITS ---
APPROVED REPORT Conclusion This is a 48-hour Holter monitor ordered because of tachycardia and dyspnea Predominant rhythm was sinus with an average heart rate of 68. Minimum was 51, maximum 115 There were very rare isolated atrial and ventricular ectopic beats There was no atrial fibrillation, no supraventricular tachycardia, no high-grade AV block, no pauses greater than 3 seconds No patient symptoms were reported
== END 2022-02-22 23:59 | disposition home or self-care (01) ==
LOC: RT 01:07
PROVIDERS: PCP Nurse Practitioner Family; Visit Provider Family Medicine
DX: R00.0 Tachycardia, unspecified (principal); R06.09 Other forms of dyspnea
CPT/HCPCS: 93225; 93226

== ENCOUNTER 2022-03-01 04:19 | Outpatient (CLI) | payer BC, SELFPAY ==
[2022-03-01 15:06] LABS: Ferritin 156 ng/mL (8-252)
== END 2022-03-01 04:20 | disposition home or self-care (01) ==
LOC: LBO 04:19
PROVIDERS: PCP Nurse Practitioner Family; Visit Provider Nurse Practitioner
DX: G25.81 Restless legs syndrome (principal); G47.36 Sleep related hypoventilation in conditions classified elsewhere; D64.9 Anemia, unspecified; G47.00 Insomnia, unspecified
CPT/HCPCS: 36415; 82728

== ENCOUNTER → 2022-03-13 01:00 | Outpatient (CLI) | payer BC, SELFPAY ==
--- NOTE | 2022-03-13 | DI.NM_ITS ---
APPROVED REPORT Exam: Exercise Treadmill Patient Location: Out-Patient Room/Bed: Stress Nurse: Tracie Isidro RN Ordering Provider:JESSICA WELLS, Contact Number: [phone] BMI: 21.58 Baseline Rhythm: Sinus Bradycardia Comment: Rare PVC Indications: Tachycardia, oxygen desat, dyspnea, s/p covid Medical History Medical History: Asthma, gerd, tachycardia, long Covid Cardiac Medications: Albuterol, symbicort, metoprolol Allergies: Contrast dye, latex Cardiac Risk Factors: Asthma Previous Cardiac Procedures: None Pretest Chest Pain Characteristics: None Exercise History: Sedentary Physical Disabilities: None Lung Sounds: Clear to auscultation Heart Sounds: Regular Stress Test Details Test: Exercise stress testing was performed using a modified Chris protocol. Nuclear Acquisition: Rest Tc-99m/Stress Tc-99m 1 day Rest Isotope: Tc-99m Sestamibi. Dose: 9.0 Date: 03/13/2022 Injection Time: 0930 Stress Isotope: Tc-99m Sestamibi. Dose: 31.0 Date: 03/13/2022 Injection Time: 1132 HR Resting HR Supine: 57 bpm Max Heart Rate (APMHR): 162.117394 bpm Resting HR Standin bpm Target HR (85% APMHR): 137.814997 bpm Max HR Achieved: 156 bpm % of APMHR: 96.30 Recovery HR: 69 bpm HR response to stress: Normal HR response to stress Comment: Metoprolol held for 48 hrs prior to test BP Resting BP Supine: 134/76 mmHg Resting BP Standin/76 mmHg Max BP: 152/72 mmHg Recovery BP: 128/80 mmHg BP response to stress: Normal blood pressure response to stress. ECG Resting ECG: Sinus Bradycardia Ectopy: Rare PVC Stress ECG: Sinus Tachycardia ST Change: No significant ST segment changes noted Arrhythmia: None Recovery ECG: Sinus Rhythm Recovery ST Change: No significant ST segment changes noted Recovery Arrhythmia: Rare PVC Clinical Reason for Termination: Chest pain/Anginal equivalent Stress Symptoms: Chest pain, General Fatigue, Dyspnea Exercise duration: 3 min13 sec Highest Stage Reached: Stage 1: 1.7 mph at 10% grade. Exercise capacity: 4.64 METs Angina Score: Exercise-Limiting Unger Treadmill Score: -5.6 Rate Pressure Product: [id number] Stress ECG Conclusion 1. Resting electrocardiogram showed right axis deviation, poor R wave progression 2. Patient exercised on the Chris protocol completed a workload of 4.64 METS 3. Normal heart rate and blood pressure response to exercise. The patient achieved 96% of predicted heart rate for age 4. The electrocardiographic portion of the test showed no evidence of myocardial ischemia 5. There were no significant dysrhythmias 6. See MPI report Unger Treadmill Score is -5.6 which is Moderate risk. Stress Test Summary STAGE Time (mins) Speed (mph) Grade (%) HR BP SpO2 SYMPTOMS METS Supine 134/7 57 134/76 Standing 67 124/76 SpO2 100% 1 3 1.7 10 156 144/88 SpO2 93% Chest pain 8/10, severe SOB 4.5 1 min recovery 135 152/72 SpO2 99% Symptoms improving 3 min recovery 92 148/80 SpO2 99% Chest pain 3/10, SOB improving 6 min recovery 69 128/80 SpO2 99% Chest pain and SOB resolved Pt on 2-4 L O2 NC during stress testing. Test modified to maintain speed of 1.7 mph and 10% grade aft er nuclear medication injection. MPI Conclusion Myocardial perfusion is normal without evidence of ischemia or prior infarction EF 61%. Wall motion appears normal Radiologist Interpretation Radiologist agrees with Distilling Department Supervisor's Interpretation. Radiologist Interpretation by: Ramakrishna Andrea MD Interpretation Date/Time: 03/15/2022 15:51:47
== END ==
PROVIDERS: PCP Nurse Practitioner Family; Visit Provider Family Medicine
DX: R00.0 Tachycardia, unspecified (principal); R06.00 Dyspnea, unspecified; U07.1 COVID-19
CPT/HCPCS: 78452; 93017

== ENCOUNTER 2022-03-23 02:08 | Outpatient (CLI) | payer BC, SELFPAY ==
--- OUTSIDE RECORDS SUMMARY | 2022-03-23 02:25 | XMS_ITS | Encounter Summary ---
:1965 Author Organization [facility] [place] [address] Care Team Providers Name Role Phone EdJanet mendez Isa GONCALVES Primary Care Provider Encounter Details Date Type Department Care Team Description 02/12/2022 Laboratory Appointment Lab 3L [facility] Hormone replacement [facility] therapy (HRT) [place] [address] Social History Tobacco Use Types Packs/Day Years Used Date Never Smoker Smokeless Tobacco: Never Used Alcohol Use Standard Drinks/Week Comments No 0 (1 standard drink = 0.6 oz pure alcoho l) Sex Assigned at Date Recorded Female 01/29/2022 12:45 PM EDT documented as of this encounter Plan of Treatment Upcoming Encounters Date Type Specialty Care Team Description 04/10/2022 Appointment Radiology Luis Michael MD [facility] UROLOGY DEPT. [place], [place] [address] (Wo rk) 04/10/2022 Office Visit Urology Luis Michael MD [facility] UROLOGY DEPT. [place], [place] [address] (Wo rk) 07/13/2022 Appointment Radiology Maile Hinojosa MD [facility] ENDOCRINOLOGY [place], [place] [address] (Wo rk) 07/13/2022 Office Visit Endocrinology Maile Hinojosa MD [facility] ENDOCRINOLOGY [place], [place] [address] (Wo rk) documented as of this encounter Procedures Procedure Name Priority Date/Time Associated Diagnosis Comme [facility] VENIPUNCTURE Routine 02/12/2022 8:35 AM Hormone replacement Results for this EDT therapy (HRT) procedure are in the results section. documented in this encounter Results Lipid Panel (Reflex Direct LDL) (02/12/2022 8:35 AM EDT) athologist Signature Chol, Total 205 mg/dL [facility] Comment: Lower Risk: <200 mg/dL Average Risk: 200-239 mg/dL Higher Risk: >yc=585 mg/dL Triglycerides 86 mg/dL [facility] Comment: Average Risk/Lower Risk: <150 mg/dL Borderline High Risk: 150-199 mg/dL High Risk: 200-499 mg/dL Very High Risk: >eb=305 mg/dL HDL 75 mg/dL [facility] Comment: Males: ?? Higher Risk: <40 mg/dL Females: ?? Higher Risk: <50 mg/dL LDL Cholesterol 113 mg/dL [facility] Comment: Lowest Risk: <100 mg/dL Lower Risk: 100-129 mg/dL Borderline High Risk: 130-159 mg/dL High Risk: 160-189 mg/dL Very High Risk: >gd=714 mg/dL Chol/HDL Ratio 2.7 ratio [facility] Lipid Interpretation See Note [facility] Comment: Lipid management should be guided by a p atient? s ASCVD risk, goals and preferences. ACC/AHA Guidelines recommend high intens ity statin if clinical ASCVD or LDL greater than or equal to 190 mg/dL. http://Glycodeurl.com/BBO-YJA-Ytyryowuw Adults aged 40-75 with LDL 70-189 mg/dL should have their 10 year ASCVD risk estimated with the ACC/AHA ASCVD risk es timator http://tools.acc.org/WDBRE-Gfwe-Wkmhnwqz r/ Statin should be discussed if risk great er than or equal to 7.5% in non-diabetics. With diabetes, moderate i ntensity statin is recommended if risk less than 7.5%, high intensity if risk g reater than or equal to 7.5%. Annual lipid monitoring on statins is no t necessary. Evaluate secondary causes of Triglycerid es greater than 500 mg/dL or LDL greater than 190 mg/dL: See table 6 of A CC/AHA Guideline. Lifestyle modification is a critical com ponent of ASCVD risk reduction. Specimen Anatomical Collection Method Collection Time Receive d Time (Source) Location / / Volume Laterality Blood 02/12/2022 8:35 AM 8:54 EDT AM EDT Resulting Agency Comment Spec In Lab Desiree Zabala MD CHEMISTRY ORDERABLES Performing Organization Address City/State/ZIP [place] [address] documented in this encounter Visit Diagnoses Diagnosis Hormone replacement therapy (HRT) documented in this encounter Care Teams Band Ripsaw Operator Relationship Specialty Start Date End Date Janet Davey APRN PCP - General Family Medicine 07/13/20 [address] [place] [address] documented as of this encounter
--- OUTSIDE RECORDS SUMMARY | 2022-03-23 02:25 | XMS_ITS | Clinical Summary ---
:1965 Author Organization [facility] [place] [address] Care Team Providers Name Role Phone Petar Janet Moss APRN Primary Care Provider Allergies Active Allergy Reactions Severity Noted Date Comments Grass Pollen-[place], Other (See Comments) 12/07/2010 Runny nose, itching, Standard sneezing Mold Extracts Other (See Comments) 03/31/2013 Sneezi ng and runny nose Medications Medication Sig Dispensed Refills Start Date End Date Status albuterol (ACCUNEB) 0 08/24/2010 Active 0.63 mg/3 mL nebulizer solution multivitamin Take 1 tablet by 0 Active (THERAGRAN) tablet mouth daily. montelukast (SINGULAIR) Take 10 mg by 0 12/07/2010 Active 10 mg tablet mouth every morning. hydrocortisone Apply topically 0 07/25/2015 Active (WESTCORT) 0.2 % Cream as needed. SUMAtriptan (IMITREX) as needed for 1 04/13/2016 Active 100 mg Tablet Migraine. azelastine (ASTELIN) instill 1 spray 0 06/17/2017 Active 137 mcg (0.1 %) into each nostril Aerosol, [place] twice a day galantamine (RAZADYNE) 12 mg 2 times 0 05/31/2018 Active 12 mg Tablet daily. memantine (NAMENDA) 5 5 mg 2 times 0 05/19/2018 Active mg Tablet daily. cyclobenzaprine TK 1 T PO TID PRN 0 09/08/2019 Active (Flexeril) 5 mg Tablet acyclovir (ZOVIRAX) 200 TK 1 C PO FID FOR 0 01/01/20 20 Active mg Capsule 5 DAYS calcium Take by mouth 0 Active carbonate/vitamin D3 daily. (VITAMIN D-3 ORAL) b complex vitamins Take 1 capsule by 0 Active Capsule mouth daily. MAGNESIUM ORAL Take by mouth. 2 0 Active caps QD UNABLE TO FIND daily. MELAEUCA 0 Active .. multi vit with minerals chlorthalidone Take 1 tablet by 90 tablet 3 09/25/2021 Active (Hygroten) 25 mg Tablet mouth daily. estradioL (Lia) 0.1 Change 1 patch on 8 patch 12 01/04/2022 Active mg/24 hr Patch the skin twice a Semiweekly week. Symbicort 160-4.5 Inhale 2 puffs 0 01/23/2022 Active mcg/actuation HFA into the lungs 2 Aerosol Inhaler times daily. Active Problems Problem Noted Date Hormone replacement therapy (postmenopausal) Overview: HRT monitoring: HRT start: 2013 Current HRT: Estradiol patch 0.1mg twice weekly Methods tried: Estradiol patch, Mirena I UD (placed 04/2016) Last labs: Lipids 02/12/2022 The 10-year ASCVD risk score ([employer] ROGERS Jr ., et al., 2013) is: 1.3% Values used to calculate the score: Age: 56 years Sex: Female Is Non- : No Diabetic: No Tobacco smoker: No Systolic Blood Pressure: 97 mmHg Is BP treated: No HDL Cholesterol: 75 mg/dL Total Cholesterol: 205 mg/dL Last BP: 97/62 (02/12/2022) Follow up: q 6 months Hot flashes, menopausal 11/05/2021 Asthma 12/07/2010 Nephrolithiasis 12/07/2010 Raynaud's disease 12/07/2010 Migraines 12/07/2010 Resolved Problems Problem Noted Date Resolved Date Perimenopause 12/07/2010 02/16/2022 CIS - asthma 08/01/2009 12/07/2010 CIS - nephrolithiasis 08/01/2009 12/07/2010 CIS - perimenopausal 08/01/2009 12/07/2010 CIS - pneumonia 08/01/2009 12/07/2010 CIS - Raynaud's 08/01/2009 12/07/2010 Encounters Date Type Specialty Care Team Description 02/12/2022 Office Visit Obstetrics and Desiree Zabala, Hot flas hes; Gynecology Hormone replace ment therapy (postmenopausal) 02/12/2022 Laboratory Lab Hormone replace ment Appointment therapy (HRT) 02/12/2022 Hospital Encounter Radiology Ludy Grace MD Vagin al bleeding 01/03/2022 Telephone Obstetrics and Shamika Liang Gynecology D 01/03/2022 Telephone Obstetrics and Jennie Zaldivar Gynecology RN 12/28/2021 Orders Only Obstetrics and Therese Hough Gynecology CCMA from Last 3 Months Immunizations Name Administration Dates Next Due Influenza PF, Split 06/01/2016 Influenza Vaccine PF, Quadrivalent 06/03/2019 Influenza Vaccine w/Preservative, Split 06/10/2014 Family History Medical History Relation Comments Depression Father Cancer Maternal Aunt lymph node CA Depression Mother Osteoporosis Mother Breast Cancer Paternal Grandmother Colorectal Cancer Neg Hx Ovarian Cancer Neg Hx Relation Status Comments Father Alive Maternal Aunt Alive Mother Alive Paternal Grandmother Social History Tobacco Use Types Packs/Day Years Used Date Never Smoker Smokeless Tobacco: Never Used Alcohol Use Standard Drinks/Week Comments No 0 (1 standard drink = 0.6 oz pure alcoho l) Sex Assigned at Date Recorded Female 01/29/2022 12:45 PM EDT Last Filed Vital Signs Vital Sign Reading Time Taken Comments Blood Pressure 97/62 02/12/2022 9:11 AM EDT Pulse 60 02/12/2022 9:11 AM EDT Temperature 36.2 ??C (97.2 ??F) 02/12/2022 9:11 AM EDT Respiratory Rate 18 11/02/2021 2:39 PM EST Oxygen Saturation 100% 02/12/2022 9:11 AM EDT Inhaled Oxygen Concentration - - Weight 63.5 kg (140 lb) 02/12/2022 9:11 AM EDT pt repor lynn Height 172.7 cm (5' 8) 02/12/2022 9:11 AM EDT Body Mass Index 21.29 02/12/2022 9:11 AM EDT Plan of Treatment Upcoming Encounters Date Type Specialty Care Team Description 04/10/2022 Appointment Radiology Luis Michael MD [facility] UROLOGY DEPT. [place], [place] [address] (Wo rk) 04/10/2022 Office Visit Urology Luis Michael MD [facility] UROLOGY DEPT. [place], [place] [address] (Wo rk) 07/13/2022 Appointment Radiology Maile Hinojosa MD [facility] ENDOCRINOLOGY [place], [place] [address] (Wo rk) 07/13/2022 Office Visit Endocrinology Maile Hinojosa MD [facility] ENDOCRINOLOGY [place], [place] [address] (Wo rk) Health Maintenance Due Date Last Done Comments Covid-19 Vaccine (#1) 1968 Pneumococcal Vaccine: At-Risk 1969 5-64yrs (1 - PCV) HIV screen 1981 Hepatitis C Screening 1981 Tdap adult 1982 Tetanus vaccine 1982 Breast Cancer Share Decision 2003 Needed Colonoscopy 2008 Zoster vaccine (1 of 2) 2013 Advance Directive 2018 PAP Smear 10/21/2021 10/21/2020, 08/05/2017, 05/01/2016, Additional history exists Influenza (Flu) vaccine (1 of 1 - 04/26/2022 06/03/2019, , Influenza standard series) 06/10/2014 Breast Cancer screening 11/03/2023 11/02/2021, 10/21/2020, 10/20/2019, Additional history exists Procedures Procedure Name Priority Date/Time Associated Diagnosis Comme nts LAB SCAN 03/01/2022 12:00 Results for this AM EDT procedure are i n the results section. HC VENIPUNCTURE Routine 02/12/2022 8:35 AM Hormone replacement Results for this EDT therapy (HRT) procedure are in the results section. US TRANSVAGINAL NON Routine 02/12/2022 8:14 AM Vaginal bleedin g Results for this OB EDT procedure are i n the results section. from Last 3 Months Results SCAN DOC: LAB (03/01/2022 12:00 AM EDT) Narrative This result has an attachment that is no t available. Unknown MEDIA MGR SCAN EXT ORDR/RSLT Lipid Panel (Reflex Direct LDL) (02/12/2022 8:35 AM EDT) athologist Signature Chol, Total 205 mg/dL [facility] Comment: Lower Risk: <200 mg/dL Average Risk: 200-239 mg/dL Higher Risk: >wl=342 mg/dL Triglycerides 86 mg/dL [facility] Comment: Average Risk/Lower Risk: <150 mg/dL Borderline High Risk: 150-199 mg/dL High Risk: 200-499 mg/dL Very High Risk: >ih=924 mg/dL HDL 75 mg/dL [facility] Comment: Males: ?? Higher Risk: <40 mg/dL Females: ?? Higher Risk: <50 mg/dL LDL Cholesterol 113 mg/dL [facility] Comment: Lowest Risk: <100 mg/dL Lower Risk: 100-129 mg/dL Borderline High Risk: 130-159 mg/dL High Risk: 160-189 mg/dL Very High Risk: >xt=873 mg/dL Chol/HDL Ratio 2.7 ratio [facility] Lipid Interpretation See Note [facility] Comment: Lipid management should be guided by a p atient? s ASCVD risk, goals and preferences. ACC/AHA Guidelines recommend high intens ity statin if clinical ASCVD or LDL greater than or equal to 190 mg/dL. http://tinyurl.com/NEB-ILH-Fpuqpehie Adults aged 40-75 with LDL 70-189 mg/dL should have their 10 year ASCVD risk estimated with the ACC/AHA ASCVD risk es timator http://tools.acc.org/AEAFX-Gipp-Sklikhur r/ Statin should be discussed if risk [...] Organization Address City/State/ZIP Code Phon e Number [place] [id number] US Transvaginal Non OB (02/12/2022 8:14 AM EDT) Anatomical Region Laterality Modality Ultrasound Specimen (Source) Anatomical Collection Method Collection Time Re ceived Time Location / / Volume Laterality 02/12/2022 7:57 AM EDT Impressions 02/12/2022 9:31 AM EDT 1. Anteverted uterus with central endom etrial echo complex measuring 4 mm in diameter which is equivocal for endomet rial biopsy. 2. An IUD is in normal position within the endometrial cavity. 3. Heterogeneous myometrium with a subendometrial/myometrial cyst suggesti ng adenomyosis. 4. Subcentimeter right ovarian simple c yst. No follow- up required. 5. Normal left ovary. Electronically signed by: Weston mendosa MD, Radiology [place] ([phone]), at 9:24 AM Thank you for letting us participate in the care of this patient. If you are a [facility] er and have any questions regarding this report, please contact the number above. For patients who have ques tions, please contact the [facility] professio nal that requested your imaging first. ? Weston Martin, Staff Physician Electronically Signed Final Report ?? 09:31 am Narrative 02/12/2022 9:31 AM EDT Gynecological Report ?(Signed Final 02/12/2022 09:31 am) PATIENT INFO: ID #: ? [id number] ?: ??[birth year] (56 yrs)(F) Name: ? JESSICA GTZ ?Visit Date: 02/12/2022 07:57 am PERFORMED BY: Performed By: ? Desiree Burrell RDMS Attending: ?Veronica GILL, Butch Maloney Referred By: ?LUDY GRACE Location: ? [place] SERVICE(S) PROVIDED: UTV - Transvaginal - [id number] ?[id number] U3D - ??3D rendering with interpretatio n - [id number] ? [id number] INDICATIONS: vaginal bleeding, IUD in place TECHNIQUE/SCAN QUALITY: Technique: ?Transducer ID#:[id number] COMPARISON: Transvaginal ultrasound 01/09/21 -------- HISTORY: -------- Age: ?? 56 Hormone Treatment: ? IUD ------- UTERUS: ------- Uterus: ? Visualized Position: ?? Anteverted Size (cm) ?L: ??7.2 ? W: ?? 3.8 ?H: ??4.1 Description: ?? Coronal view of the carrol sweetie demonstrates ?normal convex ut erine fundal contour. IUD ?appears in jay l position. Myometrial cyst ?measuring 0.3 x 0.3 x0.3 cm. ENDOMETRIUM: Endometrium: ?Normal Thickness(mm): ?4.0 Comment: ? 3D rendering with interp retation was performed ?for IUD placement RIGHT OVARY: Status: ?? Visualized Size (cm) ?L: ??1.7 ? W: ?? 0.9 ?H: ??1.0 Vol (ml): ?0.8 Morphology: ?Normal appearance Comment: ? Cyst ??measuring 0.7 x 0 .7 x 0.9 cm. LEFT OVARY: Status: ?? Visualized Size (cm) ?L: ??1.4 ? W: ?? 1.3 ?H: ??0.8 Vol (ml): ?0.8 Morphology: ?Normal appearance Procedure Note Weston Martin MD - 02/12/2022Format ting of this note might be different from the original. Gynecological Report (Signed Final 01/25 09:31 am) PATIENT INFO: ID #: [id number] : [birth year] (56 y rs)(F) Name: JESSICA GTZ Visit Date: 02/12 07:57 am PERFORMED BY: Performed By: Desiree Burrell RDMS Attending: Weston Martin MD Referred By: LUDY GRACE Location: [place] SERVICE(S) PROVIDED: UTV - Transvaginal - [id number] U3D - 3D rendering with interpretation - [id number] INDICATIONS: vaginal bleeding, IUD in place TECHNIQUE/SCAN QUALITY: Technique: Transducer ID#:[id number] COMPARISON: Transvaginal ultrasound 01/09/21 -------- HISTORY: -------- Age: 56 Hormone Treatment: IUD ------- UTERUS: ------- Uterus: Visualized Position: Anteverted Size (cm) L: 7.2 W: 3.8 H: 4.1 Description: Coronal view of the uterus demonstrates normal convex uterine fundal contour. I UD appears in normal position. Myometrial cyst measuring 0.3 x 0.3 x0.3 cm. ENDOMETRIUM: Endometrium: Normal Thickness(mm): 4.0 Comment: 3D rendering with interpretati on was performed for IUD placement RIGHT OVARY: Status: Visualized Size (cm) L: 1.7 W: 0.9 H: 1.0 Vol (ml): 0.8 Morphology: Normal appearance Comment: Cyst measuring 0.7 x 0.7 x 0.9 cm. LEFT OVARY: Status: Visualized Size (cm) L: 1.4 W: 1.3 H: 0.8 Vol (ml): 0.8 Morphology: Normal appearance IMPRESSION 1. Anteverted uterus with central endom etrial echo complex measuring 4 mm in diameter which is equivocal for endomet rial biopsy. 2. An IUD is in normal position within the endometrial cavity. 3. Heterogeneous myometrium with a subendometrial/myometrial cyst suggesti ng adenomyosis. 4. Subcentimeter right ovarian simple c yst. No follow- up required. 5. Normal left ovary. Electronically signed by: Weston mendosa MD, [facility] ([phone]), at 9:24 AM Thank you for letting us participate in the care of this patient. If you are a [facility] er and have any questions regarding this report, please contact the number above. For patients who have ques tions, please contact the [facility] professio nal that requested your imaging first. Weston Martin, Staff Physician Electronically Signed Final Report 02/12 09:31 am Ludy Grace MD IMG US PELVIC ORDERABLES from Last 3 Months Insurance Payer Benefit Plan Subscriber ID Effective Dates Phone Address Type / Group BLUE [facility] [id number] 2018-Jeanie [phone] [address] [facility] [id number] Advance Directives Latest Code Status on File Code Status Date Activated Date Inactivated Comments Full Code 04/18/2017 12:11 PM 04/18/2017 5:24 PM Does patient have capacity to make decision: Yes Care Teams Packer And Carry Out Relationship Specialty Start Date End Date Janet Davey, TEENAGE PROGRAM DIRECTOR PCP - General Family Medicine 07/13/20 [address] [place] [address]
--- OUTSIDE RECORDS SUMMARY | 2022-03-23 02:26 | XMS_ITS | Encounter Summary ---
:1965 Author Organization [facility] [place] [address] Care Team Providers Name Role Phone Petar Janet Isa GONCALVES Primary Care Provider Encounter Details Date Type Department Care Team Description 07/07/2020 Office Visit Endocrinology at [facility] Cuate Pearl MD Osteoporosis, [facility] ed [facility] [address] osteoporosis type, [place] [address] ENDOCRINOLOGY unspecified [phone] [place], [place] [address] pathological fracture [phone] presence (Work) Social History Tobacco Use Types Packs/Day Years Used Date Never Smoker Smokeless Tobacco: Never Used Alcohol Use Standard Drinks/Week Comments No 0 (1 standard drink = 0.6 oz pure alcoho l) Sex Assigned at Date Recorded Female 01/29/2022 12:45 PM EDT documented as of this encounter Last Filed Vital Signs Vital Sign Reading Time Taken Comments Blood Pressure 129/79 07/07/2020 2:59 PM EST Pulse 74 07/07/2020 2:59 PM EST Temperature 36.6 ??C (97.8 ??F) 07/07/2020 2:59 PM EST Respiratory Rate - - Oxygen Saturation 100% 07/07/2020 2:59 PM EST Inhaled Oxygen Concentration - - Weight 69 kg (152 lb 3.2 oz) 07/07/2020 2:59 PM EST Height 172.7 cm (5' 8) 07/07/2020 2:59 PM EST Body Mass Index 23.14 07/07/2020 2:59 PM EST documented in this encounter Progress Notes Cuate Hall MD - 07/07/2020 3:00 PM EST Subjective: Patient ID: Stacy Albright is a 54 y.o. female who comes in to see me for the first time since June/2017 for oversight and treatment of her history of 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 She has never had a fragility fracture. She has been trying to take in adequate amounts of calcium and vitamin D but has never added any other medications. She has taken some intermittent prednisone for treatment of her asthma but usually that is less thana week that she is on the prednisone and this happens once or twice a year. She is using an estradiol patch that delivers 0.1 mg/day that she changes twice a week. Otherwise she is generally healthy. HPI Review of Systems Objective: Physical Exam Constitutional: Appearance: Normal appearance. Neurological: Mental Status: She is alert and oriented to person, place, and time. Psychiatric: Mood and Affect: Mood normal. Behavior: Behavior normal. Thought Content: Thought content normal. Judgment: Judgment normal. BP 129/79 Pulse 74 Temp 36.6 ??C (97.8 ??F) Ht 172.7 cm (5' 8) Wt 69 kg (152 lb 3.2 oz) SpO2 100% BMI 23.14 kg/m?? Assessment and Plan: Her DEXA scan today shows that her vertebral T score was -0.7 and she had lost a significant 2.9% since her previous scan 3 years ago. In her hip the neck of the hip her T score is -2.7 and the total hip her T score is -2.2. I discussed with Stacy the question of whether or not it would be worthwhile for her to add a medication to her calcium and vitamin D and estrogen that she is taking. I reviewed national guidelines which would suggest that she could add a medication since she does have osteoporosis in her hip. Technically she already has added the medication since she is using estradiol patches. At this point she is hesitant to add a medication and opted to continue on the medication she is on and to stay active and then to repeat her DEXA scan in about 2 years. I told her that I thought this was a reasonable plan. When I write her I will suggest that she have a repeat DEXA scan in 2 years and then readdress the question of whether to add another medication and also address whether or not at that time to consider stopping the estradiol that she gets into her late 50s. I will send a copy of this note to her primary care provider Janet Davey so she will be aware of the results and my recommendations. Greater than 20 of the 25-minute appointment was spent [id number] discussing the issues above. documented in this encounter Plan of Treatment Upcoming Encounters Date Type Specialty Care Team Description 04/10/2022 Appointment Radiology Luis Michael MD [facility] [place] [address] (Wo rk) 04/10/2022 Office Visit Urology Luis Michael MD [facility] [place] [address] (Wo rk) 07/13/2022 Appointment Radiology Maile Hinojosa MD [facility] ENDOCRINOLOGY [place], [place] [address] (Wo rk) 07/13/2022 Office Visit Endocrinology Maile Hinojosa MD [facility] ENDOCRINOLOGY [place], [place] [address] (Wo rk) documented as of this encounter Procedures Procedure Name Priority Date/Time Associated Diagnosis Comme nts PTH Routine 07/07/2020 3:51 PM Results f or this EST procedure are i n the results section. GOLD TUBE HOLD Routine 07/07/2020 3:51 PM Results for this EST procedure are i n the results section. GREEN TUBE HOLD Routine 07/07/2020 3:51 PM Result s for this EST procedure are i n the results section. LAVENDER TUBE HOLD Routine 07/07/2020 3:51 PM Res ults for this EST procedure are i n the results section. VITAMIN D, Routine 07/07/2020 3:51 PM Results f or this 25-HYDROXY EST procedure are i n the results section. ESTRADIOL Routine 07/07/2020 3:51 PM Results f or this EST procedure are i n the results section. CALCIUM Routine 07/07/2020 3:51 PM Results f or this EST procedure are i n the results section. documented in this encounter Results Estradiol (07/07/2020 3:51 PM EST) P athologist Signature Estradiol 135 pg/mL [facility] Comment: Reference ranges: Males: Adult: ? 11 to 43 pg/mL Females: Non- females: ?Follicular: ??12-233 pg/m L ?Ovulation: ?? 41-398 pg/m L ?Luteal: ?22-341 pg /mL ?Postmenopausal: ?? <5 - 1 38 pg/mL females: ?1st trimester: ??154-3243 pg/mL ?2nd trimester: ??1561-212 80 pg/mL ?3rd trimester: ??8525- >3 0000 pg/mL Specimen Anatomical Collection Method Collection Time Receive d Time (Source) Location / / Volume Laterality Blood specimen No Charge / 07/07/2020 3:51 PM 020 4:18 (specimen) Unknown EST PM EST Resulting Agency Comment Spec In Lab Cuate Hall MD CHEMISTRY ORDERABLES Performing Organization Address City/State/[place] [address] Vitamin D, 25-Hydroxy (07/07/2020 3:51 PM EST) Patholo gist Method Time Signature 25-OH Vit D 42 21 - 100 [facility] Total ng/mL [facility] 25-OH Vit D Sufficient [facility] LABORATORY Specimen Anatomical Collection Method Collection Time Receive d Time (Source) Location / / Volume Laterality Blood specimen No Charge / 07/07/2020 3:51 PM 020 4:18 (specimen) Unknown EST PM EST Resulting Agency Comment Spec In Lab Cuate [place] MD CHEMISTRY ORDERABLES Performing Organization Address City/[facility]/[place] [address] Calcium (07/07/2020 3:51 PM EST) P athologist Signature Calcium 9.1 8.5 - 10.5 [facility] mg/dL [facility] Specimen Anatomical Collection Method Collection Time Receive d Time (Source) Location / / Volume Laterality Blood specimen No Charge / 07/07/2020 3:51 PM 020 4:18 (specimen) Unknown EST PM EST Resulting Agency Comment Spec In Lab Cuate [place] MD CHEMISTRY ORDERABLES Performing Organization Address City/[facility]/ZIP Code Phon e Number [address] PTH (07/07/2020 3:51 PM EST) P athologist Signature PTH 40 15 - 65 [facility] pg/mL [facility] Specimen Anatomical Collection Method Collection Time Receive d Time (Source) Location / / Volume Laterality Blood specimen No Charge / 07/07/2020 3:51 PM 8:39 (specimen) Unknown EST AM EST Resulting Agency Comment Spec In Lab Cuate [place] MD CHEMISTRY ORDERABLES Performing Organization Address City/[facility]/[place] [address] Lavender Tube HOLD (07/07/2020 3:51 PM EST) Patholo gist Method Time Signature Lavender Hold Sample in [facility]. [facility] Specimen Anatomical Collection Method Collection Time Receive d Time (Source) Location / / Volume Laterality Blood specimen No Charge / 07/07/2020 3:51 PM 020 3:59 (specimen) Unknown EST PM EST Cuate [place] MD HEMATOLOGY ORDERABLES Performing Organization Address City/[facility]/[place] [address] Green Tube HOLD (07/07/2020 3:51 PM EST) P athologist Signature Green Hold Sample in [facility]ORY Specimen Anatomical Collection Method Collection Time Receive d Time (Source) Location / / Volume Laterality Blood specimen No Charge / 07/07/2020 3:51 PM 020 3:59 (specimen) Unknown EST PM EST Cuate [place] MD CHEMISTRY ORDERABLES Performing Organization Address City/[facility]/[place] [address] Gold Tube HOLD (07/07/2020 3:51 PM EST) P athologist Signature Gold Hold Sample in [facility]OR[facility]ORY Specimen Anatomical Collection Method Collection Time Receive d Time (Source) Location / / Volume Laterality Blood specimen No Charge / 07/07/2020 3:51 PM 020 3:59 (specimen) Unknown EST PM EST Cuate [place] MD CHEMISTRY ORDERABLES Performing Organization Address City/[facility] [place] [address] documented in this encounter Visit Diagnoses Diagnosis Osteoporosis, unspecified osteoporosis t ype, unspecified pathological fracture presence documented in this encounter Care Teams District Representative Relationship Specialty Start Date End Date Janet Davey APRN PCP - General Family Medicine 06/23/18 07/12/20 [address] [place] [address] documented as of this encounter
--- OUTSIDE RECORDS SUMMARY | 2022-03-23 02:26 | XMS_ITS | Encounter Summary ---
:1965 Author Organization [facility] [place] [address] Care Team Providers Name Role Phone Petar Janet Moss APRN Primary Care Provider Encounter Details Date Type Department Care Team Description 01/09/2021 Hospital Encounter Ultrasound at [facility] Saul Graham Endometrial polyp [facility] H, [place] [address] [place] [address] [phone] Social History Tobacco Use Types Packs/Day Years Used Date Never Smoker Smokeless Tobacco: Never Used Alcohol Use Standard Drinks/Week Comments No 0 (1 standard drink = 0.6 oz pure alcoho l) Sex Assigned at Date Recorded Female 01/29/2022 12:45 PM EDT documented as of this encounter Medications at Time of Discharge Medication Sig Dispensed Refills Start Date End Date acyclovir (ZOVIRAX) 200 TK 1 C PO FID FOR 5 0 03/2020 mg Capsule DAYS cyclobenzaprine TK 1 T PO TID PRN 0 09/08/2019 (Flexeril) 5 mg Tablet galantamine (RAZADYNE) 12 mg 2 times daily. 0 01/2018 12 mg Tablet memantine (NAMENDA) 5 mg 5 mg 2 times daily. 0 Tablet azelastine (ASTELIN) 137 instill 1 spray into 0 1 mcg (0.1 %) Aerosol, each nostril twice a [place] day SUMAtriptan (IMITREX) as needed for 1 04/13/2016 100 mg Tablet Migraine. hydrocortisone Apply topically as 0 07/25/2015 (WESTCORT) 0.2 % Cream needed. multivitamin (THERAGRAN) Take 1 tablet by 0 tablet mouth daily. montelukast (SINGULAIR) Take 10 mg by mouth 0 10 mg tablet every morning. albuterol (ACCUNEB) 0.63 0 08/24/2010 mg/3 mL nebulizer solution estradioL 0.1 mg/24 hr APPLY 1 PATCH ONTO 24 patch 3 10/2308/04/2021 Patch Semiweekly THE SKIN TWICE A WEEK ibuprofen (Advil;Motrin) TK 1 T PO TID PRN 0 1104/202002/12/2022 800 mg Tablet oxyCODONE (Roxicodone) 5 TK 1 T PO Q 6 H PRN 0 02/12/2022 mg Tablet promethazine (Phenergan) as needed. 0 05/16/2020 02/12/2022 25 mg Tablet lidocaine (LIDODERM) 5 % APPLY 1 PATCH TO 0 07/3102/12/2022 Adhesive Patch, SHOULDER ONCE DAILY Medicated PRF PAIN valACYclovir (Valtrex) TAKE 2 TABLETS BY 0 201802/12/2022 500 mg Tablet MOUTH THREE TIMES DAILY NEEDED LINZESS 145 mcg Capsule 145 mg as needed. 0 06/2102/12/2022 linaCLOtide (Linzess) 72 Take 72 mcg by mouth. 0 02/12/2022 mcg Capsule One time per week levonorgestrel (MIRENA) 1 each by Intrauterine route once. Lot [id number] 8ac 0 05/01/2016 05/01/2021 20 mcg/24 hr (5 years) [id number] IUD cetirizine (ZYRTEC) 10 Take 10 mg by mouth 0 02/12/2022 mg tablet daily. tacrolimus (PROTOPIC) 1 Appl(s) Top Twice 0 08/2402/12/2022 0.1 % ointment daily KETOCONAZOLE (NIZORAL Apply topically. 0 08/24/20 10 02/12/2022 TOP) documented as of this encounter Plan of Treatment Upcoming Encounters Date Type Specialty Care Team Description 04/10/2022 Appointment Radiology Luis Michael MD [facility] [place] [address] (Wo rk) 04/10/2022 Office Visit Urology Luis Michael MD [facility] [place] [address] (Wo rk) 07/13/2022 Appointment Radiology Maile Hinojosa MD [facility] ENDOCRINOLOGY [place], [place] [address] (Wo rk) 07/13/2022 Office Visit Endocrinology Maile Hinojosa MD [facility] ENDOCRINOLOGY [place], [place] [address] (Wo rk) documented as of this encounter Procedures Procedure Name Priority Date/Time Associated Diagnosis Comme nts US TRANSVAGINAL NON Routine 01/09/2021 2:08 PM Endometrial kim yp Results for this OB EDT procedure are i n the results section. documented in this encounter Results US Transvaginal Non OB (01/09/2021 2:08 PM EDT) Anatomical Region Laterality Modality Ultrasound Specimen (Source) Anatomical Collection Method Collection Time Re ceived Time Location / / Volume Laterality 01/09/2021 1:51 PM EDT Impressions 01/09/2021 2:30 PM EDT 1. ??IUD in appropriate position within the endometrial cavity. Where visualized, the endometrium appears normal, evaluat ion limited by the presence of the IUD. 2. ??Normal ovaries. Thank you for letting us participate in the care of this patient. ??If you are a health care provider and have any quest ions regarding this report, please contact the number below. ??For patient s who have questions please contact the health rn urgent care that requested your imaging first. Electronically signed by: Genie Carrasco MD, Radiology [place] ([phone]), at 2:23 PM Thank you for letting us participate in the care of this patient. If you are a health care [facility] er and have any questions regarding this report, please contact the number below. For patients who have ques tions, please [facility]. ? Genie Carrasco, Staff Physician Electronically Signed Final Report ?? 02:30 pm Narrative 01/09/2021 2:30 PM EDT Gynecological Report ?(Signed Final 01/09/2021 02:30 pm) PATIENT INFO: ID #: ? [id number] ?: ??[birth year] (55 yrs)(F) Name: ? JESSICAKATIE GTZ ?Visit Date: 01/09/2021 01:51 pm PERFORMED BY: Performed By: ? Keya Hedrick RDMS Attending: ?Luna GILL, Genie Dumont Referred By: ?SAUL Eddy Location: ? [place] SERVICE(S) PROVIDED: UTV - Transvaginal - [id number] ?[id number] U3D - ??3D rendering with interpretatio n - [id number] ? [id number] INDICATIONS: ? polyp TECHNIQUE/SCAN QUALITY: Technique: ?Transducer ID#: [id number] COMPARISON: Pelvic ultrasound 10/04/11; CT urogram . -------- HISTORY: -------- Age: ?? 55 ------- UTERUS: ------- Uterus: ? Visualized Position: ?? Anteverted Size (cm) ?L: ??7.1 ? W: ?? 4.9 ?H: ??4.0 ENDOMETRIUM: Endometrium: ?Normal where seen Thickness(mm): ?2.82 Comment: ? 3D rendering with interp retation was performed ?for IUD placement. IUD seen in normal position ?within the endometr ial cavity. Limited evaluation ?of endometrium due to IUD within. ------- CERVIX: ------- Normal appearance. CUL-DE-SAC: No fluid is visualized. RIGHT OVARY: Status: ?? Visualized Size (cm) ?L: ??2.3 ? W: ?? 1.3 ?H: ??1.4 Vol (ml): ?2.2 Morphology: ?Normal appearance LEFT OVARY: Status: ?? Visualized Size (cm) ?L: ??2.2 ? W: ?? 1.4 ?H: ??1.2 Vol (ml): ?1.9 Morphology: ?Normal appearance Procedure Note Genie Carrasco MD - 01/09/2021Formatt ing of this note might be different from the original. Gynecological Report (Signed Final 12/24 02:30 pm) PATIENT INFO: ID #: [id number] : [birth year] (55 y rs)(F) Name: JESSICA GTZ Visit Date: 01/09 01:51 pm PERFORMED BY: Performed By: Chetna Hedrick RDMS Attending: Genie Carrasco MD Referred By: SAUL Bobo THIAGO Location: [place] SERVICE(S) PROVIDED: UTV - Transvaginal - [id number] U3D - 3D rendering with interpretation - [id number] INDICATIONS: ? polyp TECHNIQUE/SCAN QUALITY: Technique: Transducer ID#: [id number] COMPARISON: Pelvic ultrasound 10/04/11; CT urogram . -------- HISTORY: -------- Age: 55 ------- UTERUS: ------- Uterus: Visualized Position: Anteverted Size (cm) L: 7.1 W: 4.9 H: 4.0 ENDOMETRIUM: Endometrium: Normal where seen Thickness(mm): 2.82 Comment: 3D rendering with interpretati on was performed for IUD placement. IUD seen in normal p osition within the endometrial cavity. Limited evaluation of endometrium due to IUD within. ------- CERVIX: ------- Normal appearance. CUL-DE-SAC: No fluid is visualized. RIGHT OVARY: Status: Visualized Size (cm) L: 2.3 W: 1.3 H: 1.4 Vol (ml): 2.2 Morphology: Normal appearance LEFT OVARY: Status: Visualized Size (cm) L: 2.2 W: 1.4 H: 1.2 Vol (ml): 1.9 Morphology: Normal appearance IMPRESSION 1. IUD in appropriate position within t he endometrial cavity. Where visualized, the endometrium appears normal, evaluat ion limited by the presence of the IUD. 2. Normal ovaries. Thank you for letting us participate in the care of this patient. If you are a health care provider and have any quest ions regarding this report, please contact the number below. For patients who have questions please contact the health rn urgent care that requested your imaging first. Electronically signed by: Genie Carrasco MD, [facility] ([phone]), at 2:23 PM Thank you for letting us participate in the care of this patient. If you are a [facility] er and have any questions regarding this report, please contact the number below. For patients who have ques tions, please contact the [facility] that requested your imaging first. Genie Carrasco, Staff Physician Electronically Signed Final Report 01/09 02:30 pm Saul Graham CNAntoinette IMG US PELVIC ORDERABLES documented in this encounter Visit Diagnoses Diagnosis Endometrial polyp Polyp of corpus uteri documented in this encounter Care Teams Multiple Needle Stitcher Relationship Specialty Start Date End Date Janet Davey APRN PCP - General Family Medicine 07/13/20 [address] [place] [address] documented as of this encounter
--- OUTSIDE RECORDS SUMMARY | 2022-03-23 02:26 | XMS_ITS | Encounter Summary ---
:1965 Author Organization [facility] [place] [address] Care Team Providers Name Role Phone EdJanet mendez Isa GONCALVES Primary Care Provider Encounter Details Date Type Department Care Team Description 12/28/2021 Orders Only Obstetrics and Gynecology [place] [address] Social History Tobacco Use Types Packs/Day Years Used Date Never Smoker Smokeless Tobacco: Never Used Alcohol Use Standard Drinks/Week Comments No 0 (1 standard drink = 0.6 oz pure alcoho l) Sex Assigned at Date Recorded Female 01/29/2022 12:45 PM EDT documented as of this encounter Plan of Treatment Upcoming Encounters Date Type Specialty Care Team Description 04/10/2022 Appointment Radiology Luis Michael MD [facility] UROLOGY DEPT. [place], [place] [address] (Wo rk) 04/10/2022 Office Visit Urology Luis Michael MD [facility] UROLOGY DEPT. [place], [place] [address] (Wo rk) 07/13/2022 Appointment Radiology Maile Hinojosa MD [facility] ENDOCRINOLOGY [place], [place] [address] (Wo rk) 07/13/2022 Office Visit Endocrinology Maile Hinojosa MD [facility] ENDOCRINOLOGY [place], [place] [address] (Wo rk) documented as of this encounter Visit Diagnoses Not on filedocumented in this encounter Care Teams Sharepoint Developer Relationship Specialty Start Date End Date Janet Davey APRN PCP - General Family Medicine 07/13/20 [address] [place] [address] documented as of this encounter
--- OUTSIDE RECORDS SUMMARY | 2022-03-23 02:26 | XMS_ITS | Encounter Summary ---
:1965 Author Organization [facility] [place] [address] Care Team Providers Name Role Phone Edvanessa Janet Vanessa GONCALVES Primary Care Provider Encounter Details Date Type Department Care Team Description 11/10/2021 Hospital Encounter Mammography at [facility] Zuurbier, Abnormal finding on [facility] Genoveva Tristan MD breast imaging [facility] [id number] DIAGNOSTIC [phone] [place] [address] Social History Tobacco Use Types Packs/Day Years Used Date Never Smoker Smokeless Tobacco: Never Used Alcohol Use Standard Drinks/Week Comments No 0 (1 standard drink = 0.6 oz pure alcoho l) Sex Assigned at Date Recorded Female 01/29/2022 12:45 PM EDT documented as of this encounter Medications at Time of Discharge Medication Sig Dispensed Refills Start Date End Date chlorthalidone (Hygroten) Take 1 tablet by 90 tablet 3 08/28 25 mg Tablet mouth daily. calcium carbonate/vitamin Take by mouth 0 D3 (VITAMIN D-3 ORAL) daily. b complex vitamins Capsule Take 1 capsule by 0 mouth daily. MAGNESIUM ORAL Take by mouth. 2 0 caps QD UNABLE TO FIND daily. MELAEUCA .. 0 multi vit with minerals acyclovir (ZOVIRAX) 200 mg TK 1 C PO FID FOR 5 0 01/01/2020 Capsule DAYS cyclobenzaprine (Flexeril) TK 1 T PO TID PRN 0 5 mg Tablet galantamine (RAZADYNE) 12 12 mg 2 times 0 018 mg Tablet daily. memantine (NAMENDA) 5 mg 5 mg 2 times daily. 0 Tablet azelastine (ASTELIN) 137 instill 1 spray 0 2016 mcg (0.1 %) Aerosol, [place] into each nostril twice a day SUMAtriptan (IMITREX) 100 as needed for 1 016 mg Tablet Migraine. hydrocortisone (WESTCORT) Apply topically as 0 0.2 % Cream needed. multivitamin (THERAGRAN) Take 1 tablet by 0 tablet mouth daily. montelukast (SINGULAIR) 10 Take 10 mg by mouth 0 12/07/2010 mg tablet every morning. albuterol (ACCUNEB) 0.63 0 08/24/2010 mg/3 mL nebulizer solution Estradiol (Lia) 0.025 Change 1 patch on 8 patch 12 08/0712/28/2021 mg/24 hr Patch Semiweekly the skin twice a week. ibuprofen (Advil;Motrin) TK 1 T PO TID PRN 0 1104/202002/12/2022 800 mg Tablet oxyCODONE (Roxicodone) 5 TK 1 T PO Q 6 H PRN 0 02/12/2022 mg Tablet promethazine (Phenergan) as needed. 0 05/16/2020 02/12/2022 25 mg Tablet lidocaine (LIDODERM) 5 % APPLY 1 PATCH TO 0 07/3102/12/2022 Adhesive Patch, Medicated SHOULDER ONCE DAILY PRF PAIN valACYclovir (Valtrex) 500 TAKE 2 TABLETS BY 0 02/12/2022 mg Tablet MOUTH THREE TIMES DAILY NEEDED LINZESS 145 mcg Capsule 145 mg as needed. 0 06/2102/12/2022 linaCLOtide (Linzess) 72 Take 72 mcg by 0 02/12/2022 mcg Capsule mouth. One time per week cetirizine (ZYRTEC) 10 mg Take 10 mg by mouth 0 02/12/2022 tablet daily. tacrolimus (PROTOPIC) 0.1 1 Appl(s) Top Twice 0 1 02/12/2022 % ointment daily KETOCONAZOLE (NIZORAL TOP) Apply topically. 0 02/12/2022 documented as of this encounter Plan of Treatment Upcoming Encounters Date Type Specialty Care Team Description 04/10/2022 Appointment Radiology Luis Michael MD [facility] UROLOGY DEPT. [place], [place] [address] (Wo rk) 04/10/2022 Office Visit Urology Luis Michael MD [facility] UROLOGY DEPT. [place], [place] [address] (Wo rk) 07/13/2022 Appointment Radiology Maile Hinojosa MD [facility] ENDOCRINOLOGY [place], [place] [address] (Wo rk) 07/13/2022 Office Visit Endocrinology Maile Hinojosa MD [facility] ENDOCRINOLOGY [place], [place] [address] (Wo rk) documented as of this encounter Procedures Procedure Name Priority Date/Time Associated Diagnosis Comme nts MAMMO BREAST US Routine 11/10/2021 1:28 PM Abnormal finding on Results for this LIMITED LEFT EDT breast imaging procedure are in the results section. documented in this encounter Results US Breast Limited Left (11/10/2021 1:28 PM EDT) Anatomical Region Laterality Modality Breast Left Mammography Specimen (Source) Anatomical Location Collection Method / Collectio n Time Received Time / Laterality Volume Impressions 11/10/2021 1:35 PM EDT Simple cyst accounts for mammographic finding in the left upper inner quadrant. Resume annual screening. BI-RADS Category 2: Benign Findings * ??Regular screening mammograms startin g between age 40 and 50 reduces the risk of from breast cancer. * ??All screening tests have both risks and benefits. These risks and benefits should be assessed for each individual p atient through discussion with their provider to determine their preferred br east cancer screening schedule. * ??Women should report any breast laird es to a health care provider right away. * ??Some women, because of their family history, a genetic tendency, or other factors, should be screened with annual breast MRI as well as with mammograms. (The number of women who fall into this category is very small). Patients and health care providers should discuss eac h patients history to decide if earlier screening and/or breast MRI are appropri ate. * ??Screening should continue as long as a woman is in good health and is expected to live 10 years or longer. * ??Screening mammography may not detect 10-15% of breast cancers. Rec Thank you for letting us participate in the care of this patient. ??If you are a health care provider and have any questi ons regarding this report, please contact the number below. ??For patients who have questions please contact the health health care sanitary technician that requested your imaging first. ? Electronically signed by: Genoveva crawley MD, [facility] ([phone]), at 11/10/2021 1:35 PM Narrative 11/10/2021 1:35 PM EDT EXAMINATION: US ??BREAST LIMITED LEFT CLINICAL HISTORY: abnormal u/s TECHNIQUE: High-resolution ultrasound was performed of the left breast 11:00 radian 7 cm from the nipple. COMPARISON: 11/02/2021 FINDINGS: There is a circumscribed anechoic avascu lar mass with posterior enhancement corresponding in size and location to th e mammographic finding, measuring 0.6 cm in diameter. Genoveva Cordoba MD IMG MAMMO ORDERABLES documented in this encounter Visit Diagnoses Diagnosis Abnormal finding on breast imaging Other (abnormal) findings on radiologica l examination of breast documented in this encounter Care Teams Upholstery Tech Relationship Specialty Start Date End Date Janet Davey APRN PCP - General Family Medicine 07/13/20 [address] [place] [address] documented as of this encounter
--- OUTSIDE RECORDS SUMMARY | 2022-03-23 02:26 | XMS_ITS | Encounter Summary ---
:1965 Author Organization [facility] [place] [address] Care Team Providers Name Role Phone Janet Davey BLACK TOP MACHINE OPERATOR Primary Care Provider Encounter Details Date Type Department Care Team Description 10/21/2020 Hospital Encounter Mammography/DXA at Janet Davey, En counter for [facility] BLACK TOP MACHINE OPERATOR screening mammogram [facility] [address], [address] [place] [address] [phone] Social History Tobacco Use Types Packs/Day Years [...] (0.1 %) Aerosol, each nostril twice a Widen day SUMAtriptan (IMITREX) as needed for 1 [...] 05/01/2016 05/01/2021 20 mcg/24 hr (5 years) [id number] IUD cetirizine (ZYRTEC) 10 Take 10 mg by mouth 0 02/12/2022 mg tablet daily. tacrolimus (PROTOPIC) 1 Appl(s) Top Twice 0 08/2402/12/2022 0.1 % ointment daily KETOCONAZOLE (NIZORAL Apply topically. 0 08/24/20 10 02/12/2022 [facility]) documented as of this encounter Plan of Treatment Upcoming Encounters Date Type Specialty Care Team Description 04/10/2022 Appointment Radiology Luis Michael MD [facility] UROLOGY DEPT. [place], [place] [address] (Wo rk) 04/10/2022 Office Visit Urology Luis Michael MD [facility] [place] [address] (Wo rk) 07/13/2022 Appointment Radiology Maile Hinojosa MD [facility] ENDOCRINOLOGY [place], [place] [address] (Wo rk) 07/13/2022 Office Visit Endocrinology Maile Hinojosa MD [facility] ENDOCRINOLOGY [place], [place] [address] (Wo rk) documented as of this encounter Procedures Procedure Name Priority Date/Time Associated Diagnosis Comme nts MAMMO SCREENING CAD Routine 10/21/2020 1:11 PM Encounter for R esults for this AND EDDIE BILATERAL EST screening mammogram pr ocedure are in for breast cancer the result s section. documented in this encounter Results Mammo Screening Cad and Eddie Bilateral (10/21/2020 1:11 PM EST) Anatomical Region Laterality Modality Breast Bilateral Mammography Specimen (Source) Anatomical Location Collection Method / Collectio n Time Received Time / Laterality Volume Narrative 10/24/2020 10:53 AM EST Bilateral mammography Reason for exam: routine f/u Technique: CC and MLO views were obtaine d of each breast using standard 2-D mammography as well as 3-D tomosynthesis . Computer aided detection was used. Comparison: This is compared with prior images. Findings: The breasts are heterogeneousl y dense, which may obscure small masses. There are no suspicious microcalcificati ons, masses, or areas of distortion. The pattern is stable. Stable benign-appeari ng focal asymmetries and scattered calcifications. Conclusion: No mammographic evidence of malignancy. Recommendation: Routine screening. BI-RADS Category 2: Benign findings. * ??Regular screening mammograms startin g between [...] may not detect 10-15% of breast cancers. Thank you for letting us participate in the care of this patient. For questions regarding this report, please contact e number below. ? Janet Davey APRN IMAna MAMMO ORDERABLES documented in this encounter Visit Diagnoses Diagnosis Encounter for screening mammogram for br east cancer documented in this encounter Care Teams Aeronautical Engineering Professor Relationship Specialty Start Date End Date Janet Davey APRN PCP - General Family Medicine 07/13/20 [address] [place] [address] documented as of this encounter
--- OUTSIDE RECORDS SUMMARY | 2022-03-23 02:26 | XMS_ITS | Encounter Summary ---
:1965 Author Organization [facility] [place] [address] Care Team Providers Name Role Phone Janet Davey Isa GONCALVES Primary Care Provider Reason for Visit Reason Comments Nephrolithiasis Encounter Details Date Type Department Care Team Description 06/30/2019 Office Visit Urology at [facility] eFrdinand Michael Jr., Nephrolithiasis [facility] [place] [address] [facility] [phone] UROLOGY DEPT. [place], [place] [address] (Wo rk) Social History Tobacco Use Types Packs/Day Years Used Date Never Smoker Smokeless Tobacco: Never Used Alcohol Use Standard Drinks/Week Comments No 0 (1 standard drink = 0.6 oz pure alcoho l) Sex Assigned at Date Recorded Female 01/29/2022 12:45 PM EDT documented as of this encounter Last Filed Vital Signs Vital Sign Reading Time Taken Comments Blood Pressure 115/79 06/30/2019 4:34 PM EST Pulse 82 06/30/2019 4:34 PM EST Temperature - - Respiratory Rate - - Oxygen Saturation - - Inhaled Oxygen Concentration - - Weight - - Height - - Body Mass Index - - documented in this encounter Progress Notes Ferdinand Michael Jr., MD - 06/30/2019 4:30 PM EST HPI Ms. Jessica Albright is a pleasant 53-year-old who returns for urologic follow-up regarding mixed CaOx nephrolithiasis. She is s/p SWL in 2007 and left ureterscopy in 07/2010. Although ultrasounds have suggested a 4-5 mmleft lower pole stone, CT confirmed no residual stone. In 2017 after reported hematuria, she underwent CT urogram which showed no evident abnormality. She had reported possible hematuria and requested to proceed with evaluation -- Microscopuc u/a showed <1rbc/hpf. Cystoscopy revealed tiny raised lesion which was resected and confirmed to be benignurothelium. In the interval since her last visit, she has been well from standpoint. She denies stone passage, suspected renal colic, hematuria, dysuria or other complaints. She reports frozen shoulder and anticipates upcoming shoulder surgery. REVIEW OF SYSTEMS 06/30/2019 Constitutional None of the above Ear / nose / throat / mouth None of the above Eyes None of the above Respiratory None of the above Cardiovascular None of the above Gastrointestinal None of the above Skin, hair None of the above Musculoskeletal Reduced range of motion Neurological None of the above Hematologic / Lymphatic None of the above Past medical history: migraines, GERD, urolithiasis, osteoporosis Past surgical history: SWL, left ureteroscopy Family history: no history of urolithiasis Social History: no tobacco history; no alcohol use Dietary History: 3-4 liters fluid intake/day; low sodium intake; moderate purine/animal protein intake; moderate oxalate intake; moderate dairy intake . Physical Exam Constitutional: She is oriented to person, place, and time. She appears well- developed and well-nourished. No distress. HENT: Head: Normocephalic and atraumatic. Cardiovascular: Normal rate. Pulmonary/Chest: Effort normal. No respiratory distress. Abdominal: Soft. There is no tenderness. There is no rebound. Genitourinary: Genitourinary Comments: No CVA tenderness to percussion bilaterally Neurological: She is alert and oriented to person, place, and time. Skin: Skin is warm and dry. She is not diaphoretic. Psychiatric: She has a normal mood and affect. Her behavior is normal. Vitals reviewed. Stone analysis: 90% calcium oxalate dehydrate and 10% calcium phosphate. Imaging studies: I independently reviewed the renal ultrasound from today. This reveals no evidence of hydronephrosis, hydroureter. Suggests small non obstructing 2-3mm left renal stone, although no confirmatory shadowing could be seen.. IMPRESSION ?? 1. RIGHT kidney: 10.1 cm without evidence for hydronephrosis. No renal calculi identified within the RIGHT kidney. 2. LEFT kidney: 10.4 cm in length without evidence for hydronephrosis. There is a tiny 2 to 3 mm nonobstructing mid pole renal calculus. 3. The bladder is of normal contour and distended. No bladder calculi identified. Impression/Plan: Doing well, with possible left renal stone, asymptomatic. We reviewed the renal ultrasound and discussed that this may represent a true small stone, but also could represent artifact, particularly in light of the absence of posterior shadowing. We discussed further diagnostic options including CAT scan or direct endoscopic inspection . we reviewed at length m anagement options, including watchful waiting, shock wave lithotripsy, and ureteroscopy. We additionally discussed the relative risks, benefits, stone-free success rate, and limitations of each. For now she declines surgical intervention and is content to monitor. We will thus continue annual follow up with renal ultrasound, sooner prn. She has been instructed to call or return in the inte rval if new signs or symptoms of stone passage/renal colic should develop. documented in this encounter Plan of Treatment Upcoming Encounters Date Type Specialty Care Team Description 04/10/2022 Appointment Radiology Ferdinand Michael MD [facility] UROLOGY DEPT. [place], [place] [address] (Wo rk) 04/10/2022 Office Visit Urology Ferdinand Michael MD [facility] UROLOGY DEPT. [place], [place] [address] (Wo silva) 07/13/2022 Appointment Radiology Maile Hinojosa MD [facility] ENDOCRINOLOGY [place], [place] [address] (Wo rk) 07/13/2022 Office Visit Endocrinology Maile Hinojosa MD [facility] [address] ENDOCRINOLOGY [place], [place] [address] (Wo rk) documented as of this encounter Results US Retroperitoneal Complete (07/13/2020 8:16 AM EST) Anatomical Region Laterality Modality Abdomen Ultrasound Specimen (Source) Anatomical Collection Method Collection Time Re ceived Time Location / / Volume Laterality 07/13/2020 7:58 AM EST Impressions 07/13/2020 9:03 AM EST ?? No bladder calculi. No renal calculi . No collecting system dilation. Thank you for letting us participate in the care of this patient. For questions regarding this report, please contact t he number below. Electronically signed by: Antoinette Lawson, [facility] [place] ([phone]), at 8:56 AM ?Mallika Galindo, [facility] Chief Electronically Signed Final Report ?? 09:02 am Narrative 07/13/2020 9:03 AM EST Renal ? (Signed Final 07/13/2020 09:02 am) PATIENT INFO: ID #: ? [id number] ?: ??[birth year] (54 yrs)(F) Name: ? JESSICA ALBRIGHT ?Visit Date: 07/13/2020 07:58 am PERFORMED BY: Performed By: ? Catherine RDMS, Alliso n Attending: ?Mallika Galindo MD. Referred By: ?FERDINAND MICHAEL Location: ? [place] SERVICE(S) PROVIDED: ??URETRO - Retroperitoneal Complete - I [id number] ? [id number] INDICATIONS: ??? stones COMPARISON: Ultrasound: 06/30/19 RIGHT KIDNEY: Size (cm) ?L: ??10.0 Cortical Thickness: ?Normal Cortical Echogenicity: ?? Normal Hydronephrosis: ?No sonogr aphic evidence Comment: ?No renal calculi seen. LEFT KIDNEY: Size (cm) ?L: ??10.6 Cortical Thickness: ?Normal Cortical Echogenicity: ?? Normal Hydronephrosis: ?No sonogr aphic evidence Comment: ?No renal calculi seen. URINARY BLADDER: Pre-void (cm) ? L: ??7.6 ? A P: ??6.4 ? TV: ??8.5 Vol (ml): ?216.5 Comment: ?Partially distended, norm al contour Procedure Note Mallika Galindo MD - 07/13/2020 Renal (Signed Final 07/13/2020 09:02 am ) PATIENT INFO: ID #: [id number] : [birth year] (54 y rs)(F) Name: JESSICA ALBRIGHT Visit Date: 07/13 07:58 am PERFORMED BY: Performed By: Sidra Alexander RDMS Attending: Mallika Galindo MD Referred By: FERDINAND MICHAEL JR Location: [place] SERVICE(S) PROVIDED: URETRO - Retroperitoneal Complete - [facility] [id number] INDICATIONS: ? stones COMPARISON: Ultrasound: 06/30/19 RIGHT KIDNEY: Size (cm) L: 10.0 Cortical Thickness: Normal Cortical Echogenicity: Normal Hydronephrosis: No sonographic evidence Comment: No renal calculi seen. LEFT KIDNEY: Size (cm) L: 10.6 Cortical Thickness: Normal Cortical Echogenicity: Normal Hydronephrosis: No sonographic evidence Comment: No renal calculi seen. URINARY BLADDER: Pre-void (cm) L: 7.6 AP: 6.4 TV: 8.5 Vol (ml): 216.5 Comment: Partially distended, normal co ntour IMPRESSION No bladder calculi. No renal calculi. N o collecting system dilation. Thank you for letting us participate in the care of this patient. For questions regarding this report, please contact t he number below. Electronically signed by: Antoinette Lawson, [facility] [place] ([phone]), at 8:56 AM Mallika Galindo, Melter Caster Electronically Signed Final Report 07/13 09:02 am Ferdinand Michael Jr., MD [email or web address] GEN ORDERABLES documented in this encounter Visit Diagnoses Diagnosis Nephrolithiasis Calculus of kidney Nephrolithiasis Calculus of kidney documented in this encounter Care Teams Independent Distributor Relationship Specialty Start Date End Date Janet Davey, SACHA PCP - General Family Medicine 06/23/18 07/12/20 [address] [place] [address] documented as of this encounter
--- OUTSIDE RECORDS SUMMARY | 2022-03-23 02:26 | XMS_ITS | Encounter Summary ---
:1965 Author Organization [facility] [place] [address] Care Team Providers Name Role Phone Janet Davey Isa GONCALVES Primary Care Provider Reason for Referral Diagnostic Test (Routine) - Closed Specialty Diagnoses / Procedures Referred By Contact Refer red To Contact Radiology Diagnoses Osteoporosis, unspecified osteoporosis type, unspecified pathological fracture presence Cuate Hall MD [facility] Rad Xray Procedures DXA Central Spine, Hip, and/or Whole Body (Generic) [facility] [address] [place] [address] [place] [address] [place] [address] Referral ID Status Reason Start Date Expiration Date Visits V isits Requested Authorized [id number] Closed Specialty 03/14/2020 09/14/2021 1 1 Service Requested Encounter Details Date Type Department Care Team Description 03/14/2020 Orders Only Endocrinology at [facility] C Cuate Hall MD Osteoporosis, [facility] osteoporosis type, [place] [address] ENDOCRINOLOGY unspecified [phone] [place], [place] [address] pathological fracture [phone] presence (Work) Social History Tobacco Use Types [...] Description 04/10/2022 Appointment Radiology Luis Michael MD [facility] UROLOGY DEPT. [place], [place] [address] (Wo rk) 04/10/2022 Office Visit Urology Luis Michael MD [facility] [place] [address] (Wo rk) 07/13/2022 Appointment Radiology Maile Hinojosa MD [facility] ENDOCRINOLOGY [place], [place] [address] (Wo rk) 07/13/2022 Office Visit Endocrinology Maile Hinojosa MD [facility] ENDOCRINOLOGY [place], [place] [address] (Wo rk) documented as of this encounter Results DXA Central Spine, Hip, and/or Whole Body (Generic) (07/07/2020 1:56 PM EST) Anatomical Region Laterality Modality C-spine, Hip N/A Other Specimen (Source) Anatomical Location Collection Method / Collectio n Time Received Time / Laterality Volume Impressions 07/07/2020 5:05 PM EST The small change of BMD is insignificant and represents normal variation since it is within or less than the calculated precision error or Least Significant Change. The measurements fulfill the WHO classif ication for osteoporosis and there is no significant change. Estimating Fracture Risk: The relationship between bone mineral de nsity (BMD) and risk of fracture is well established. As BMD decreases, risk incr eases. Quantifying risk is difficult and is usually limited to estimation of the relative risk - a term which may have limited value when trying to discuss an individual's risk. Estimating the absolute risk for a patient requires an understanding of the incidence rate in a given population and consideration of mu ltiple, partially independent, risk factors in addition to BMD. The World Health Organization (WHO) has developed a fracture risk prediction tool that calculates a ten-year risk of major osteoporotic fracture based on femoral neck bone density measurements a nd nine clinical risk factors for individuals who have not been treated fo r 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 This is available through an interactive web-based [employer] (http://www.shef.ac.uk/FRAX/) and can be used to estimate a given patient's ab solute risk of major osteoporotic fracture or hip fracture over the next 1 0 years. These estimates may prove useful when discussing risk with a patie nt. It is important, however, to understand the tool's limitations and ho w a given individual's risk might differ from the tool's estimate. The tool does not take into account the dose-response associated with most risk factors. For e xample, the significant increase in risk associated with multiple prior fractures compared to a single prior fracture is not taken into account. Similarly, the l ocation of a previous fracture, the amount of glucocorticoids and number of cigarettes smoked are not considered. These limitations are discussed in a Fr equently Asked Questions section of the FRAX website which you are encouraged to review. DEXA data sheets with BMD measurements a nd plots are available in [employer] under the imaging tab. Paper copies will be sent to providers without [employer] access. If you have received this report without e data sheet and do not have access to [employer], please contact Radiology Transcrip tion at [phone] Saturday thru Saturday 8am-4pm. Thank you for letting us participate in the care of this patient. For questions regarding this report, please contact e number below. ? Narrative 07/07/2020 5:05 PM EST EXAMINATION: DXA CENTRAL SPINE, HIP, AND/OR WHOLE BODY (GENERIC) CLINICAL HISTORY: osteoporosis, ,entered by ordering service TECHNIQUE: Scans were acquired at the esau mbar spine, and left hip. FINDINGS: Femoral neck BMD: 0.549 g/cm2 Lowest T-score at the diagnostic region of interest: T-score: -2.7, TENZIN: Femoral neck, WHO di agnosis: Osteoporosis. ......... Comparison......... Previous scan:2017 Total spine: Compared to the previous, -3 % change. Total hip: Compared to the previous scan, -1 % parish [place]. Procedure Note Simin Preston MD - 07/07/2020Formatt ing of this note might be different from the original. EXAMINATION: DXA CENTRAL SPINE, HIP, AND /OR WHOLE BODY (GENERIC) CLINICAL HISTORY: osteoporosis, ,entered by ordering service TECHNIQUE: Scans were acquired at the esau mbar spine, and left hip. FINDINGS: Femoral neck BMD: 0.549 g/cm2 Lowest T-score at the diagnostic region of interest: T-score: -2.7, TENZIN: Femoral neck, WHO di agnosis: Osteoporosis. ......... Comparison......... Previous scan:2017 Total spine: Compared to the previous, -3 % change. Total hip: Compared to the previous scan, -1 % parish [place]. IMPRESSION The small change of BMD is insignificant and represents normal variation since it is within or less than the calculated precision error or Least Significant Change. The measurements fulfill the WHO classif ication for osteoporosis and there is no significant change. Estimating Fracture Risk: The relationship between bone mineral de nsity (BMD) and risk of fracture is well established. As BMD decreases, risk incr eases. Quantifying risk is difficult and is usually limited to estimation of the relative risk - a term which may have limited value when trying to discuss an individual's risk. Estimating the absolute risk for a patient requires an understanding of the incidence rate in a given population and consideration of mu ltiple, partially independent, risk factors in addition to BMD. The World Health Organization (WHO) has developed a fracture risk prediction tool that calculates a ten-year risk of major osteoporotic fracture based on femoral neck bone density measurements a nd nine clinical risk factors for individuals who have not been treated fo r 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 This is available through an interactive web-based interfa ce (http://www.shef.ac.uk/FRAX/) and can be used to estimate a given patient's ab solute risk of major osteoporotic fracture or hip fracture over the next 1 0 years. These estimates may prove useful when discussing risk with a patie nt. It is important, however, to understand the tool's limitations and ho w a given individual's risk might differ from the tool's estimate. The tool does not take into account the dose-response associated with most risk factors. For e xample, the significant increase in risk associated with multiple prior fractures compared to a single prior fracture is not taken into account. Similarly, the l ocation of a previous fracture, the amount of glucocorticoids and number of cigarettes smoked are not considered. These limitations are discussed in a Fr equently Asked Questions section of the FRAX website which you are encouraged to review. DEXA data sheets with BMD measurements a nd plots are available in [employer] under the imaging tab. Paper copies will be sent to providers without [employer] access. If you have received this report without th e data sheet and do not have access to [employer], please contact Radiology Transcrip tion at [phone] Saturday thru Saturday 8am-4pm. Thank you for letting us participate in the care of this patient. For questions regarding this report, please contact e number below. Cuate Hall MD IMG DEXA ORDERABLES documented in this encounter Visit Diagnoses Diagnosis Osteoporosis, unspecified osteoporosis t ype, unspecified pathological fracture presence Osteoporosis, unspecified osteoporosis t ype, unspecified pathological fracture presence documented in this encounter Care Teams Volunteer Services Manager Relationship Specialty Start Date End Date Janet Davey, HARVESTING MANAGER PCP - General Family Medicine 06/23/18 07/12/20 [address] [place] [address] documented as of this encounter
--- OUTSIDE RECORDS SUMMARY | 2022-03-23 02:26 | XMS_ITS | Encounter Summary ---
:1965 Author Organization [facility] [place] [address] Care Team Providers Name Role Phone Petar Janet Moss APRN Primary Care Provider Reason for Visit Reason Comments Medication Refill Encounter Details Date Type Department Care Team Description 10/16/2020 [facility] Victor Manuel cifuentes OBSTETRICS & [place] [address] [place] [id number] [phone] (Wo rk) Social History Tobacco Use Types [...] Michael MD [facility] UROLOGY DEPT. [place], [place] [address] (Wo rk) 04/10/2022 Office Visit Urology Luis Michael MD [facility] UROLOGY DEPT. [place], [place] [address] (Wo rk) 07/13/2022 Appointment Radiology Maile Hinojosa MD [facility] ENDOCRINOLOGY [place], [place] [address] (Wo rk) 07/13/2022 Office Visit Endocrinology Maile Hinojosa MD [facility] ENDOCRINOLOGY [place], [place] [address] (Wo rk) documented as of this encounter Visit Diagnoses Not on filedocumented in this encounter Care Teams Group Manager Relationship Specialty Start Date End Date Janet Davey APRN PCP - General Family Medicine 07/13/20 [address] [place] [address] documented as of this encounter
--- OUTSIDE RECORDS SUMMARY | 2022-03-23 02:26 | XMS_ITS | Encounter Summary ---
:1965 Author Organization [facility] [place] [address] Care Team Providers Name Role Phone Janet Davey Isa GONCALVES Primary Care Provider Reason for Visit Reason Comments Annual Exam Encounter Details Date Type Department Care Team Description 11/02/2021 Office Visit Obstetrics and Drea, Encounter for well woman exam with routine gynecological exam; [place] [facility] Lucy Hinton MD Hot flashes, menopausal [facility] [address] [place] OBSTETRICS & [id number] GYNECOLOGY [phone] [place], [place] [address] (Wo rk) Social History Tobacco Use Types Packs/Day Years Used Date Never Smoker Smokeless Tobacco: Never Used Alcohol Use Standard Drinks/Week Comments No 0 (1 standard drink = 0.6 oz pure alcoho l) Sex Assigned at Date Recorded Female 01/29/2022 12:45 PM EDT documented as of this encounter Last Filed Vital Signs Vital Sign Reading Time Taken Comments Blood Pressure 110/68 11/02/2021 2:39 PM EST Pulse 79 11/02/2021 2:39 PM EST Temperature 36.2 ??C (97.1 ??F) 11/02/2021 2:39 PM EST Respiratory Rate 18 11/02/2021 2:39 PM EST Oxygen Saturation 100% 11/02/2021 2:39 PM EST Inhaled Oxygen Concentration - - Weight 69.9 kg (154 lb) 11/02/2021 2:39 PM EST Height - - Body Mass Index 23.42 08/04/2021 3:00 PM EST documented in this encounter Progress Notes Lucy Shepard MD - 11/02/2021 3:00 PM EST Patient Name: Stacy Albright Date of : 1965 Primary Care Provider: Janet Davey APRN, Referred by: Janet Davey, SACHA [address] [place] [address] Chief Complaint Patient presents with ??? Annual Exam Patient Active Problem List Diagnosis Code ??? Asthma J45.909 ??? Nephrolithiasis N20.0 ??? Raynaud's disease I73.00 ??? Migraines G43.909 ??? Perimenopause N95.1 ??? Pap smear for cervical cancer screening Z12.4 HPI: Stacy Albright is a 56 y.o.. female who presents for her annual exam and for ongoing discussion of HRT in the setting of osteoporosis and AUB. Details below: # darlene-menopausal bleeding # HRT Pt is s/p Mirena IUD placed 04/2016 following EMB (benign), EMB 11/2020 (benign), and TVUS 12/2020 w/ 2.8 mm EMS. Pt states last episode of VB was 07/2022 following change in Estradiol patch from 0.1 to 0.025 mg in 08/04/2021. States it was very small amount. No bleeding since that time, and prior to this last eposide of bleeding 12/2020. Of note, pt states mother went through menopause much earlier. Pt concerned with symptoms since decrease in Estradiol patch. States she is putting up weight, now 148 lb on her scales, which she attributes to change in estrogen dose given no diet or lifestyle change. States she was 143-144 lb. Also states hot flashes much worse. She would get them occasionally but now gets them 3-4 x/night since decreased estradiol patch dose. She states she is not sleeping well because she is now waking up with hot flashes, which she also gets throughout day, and is worried about the summer. States it is significantly affecting her quality of life. 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 States partner unable to due to health concerns. HRT: As above, estradiol patch w/ Mirena for endometrial protection STI Hx Denies history of STDs. Pap hx: Last pap on 10/21/2020: NILM, HPV negative History of NET REPAIRER pathology: none HRT - Cancer Screening Denies family history of uterine, ovarian, colon, stomach, pancreatic cancers. - grandmother on fathers side had breast cancer - matenral aunt had lymphoma Other HCM: Mammogram: 11/02/2021 - managed by her PCP Colonoscopy: up to date per pt DEXA: follows with endocrinology - ??06/2020 - T-score: -2.7, TENZIN: Femoral neck, WHO diagnosis: Osteoporosis. OB Hx: OB History 4 Para 3 Term 3 0 AB 1 Living 3 SAB 1 IAB Ectopic Multiple Live Births # Outc Date GA Lbr Joe/2nd Wgt Sex Del Anes PTL Lv 1 Term 2 Term 3 Term 4 SAB Comments: at 3 months OB History 4 Para 3 Term 3 0 AB 1 Living 3 SAB 1 IAB Ectopic Multiple Live Births Patient Active Problem List Diagnosis Code ??? Asthma J45.909 ??? Nephrolithiasis N20.0 ??? Raynaud's disease I73.00 ??? Migraines G43.909 ??? Perimenopause N95.1 ??? Pap smear for cervical cancer screening Z12.4 Past medications, allergies, medical, surgical, family and social history reviewed and up to date Home Meds Prior to Admission medications Medication Sig Start Date End Date Taking? Authorizing Provider chlorthalidone (Hygroten) 25 mg Tablet Take 1 tablet by mouth daily. 09/25/21 Maile Hinojosa MD Estradiol (Lia) 0.025 mg/24 hr Patch Semiweekly Change 1 patch on the skin twice a week. 08/07/21 Lucy Shay MD calcium carbonate/vitamin D3 (VITAMIN D-3 ORAL) Take by mouth daily. PROVIDER, HISTORICAL b complex vitamins Capsule Take 1 capsule by mouth daily. PROVIDER, HISTORICAL MAGNESIUM ORAL Take by mouth. 2 caps QD PROVIDER, HISTORICAL UNABLE TO FIND daily. MELAEUCA .. multi vit with minerals PROVIDER, HISTORICAL ibuprofen (Advil;Motrin) 800 mg Tablet TK 1 T PO TID PRN 07/04/20 PROVIDER, HISTORICAL oxyCODONE (Roxicodone) 5 mg Tablet TK 1 T PO Q 6 H PRN 05/20/20 PROVIDER, HISTORICAL promethazine (Phenergan) 25 mg Tablet 05/16/20 PROVIDER, HISTORICAL acyclovir (ZOVIRAX) 200 mg Capsule TK 1 C PO FID FOR 5 DAYS 01/01/20 PROVIDER, HISTORICAL cyclobenzaprine (Flexeril) 5 mg Tablet TK 1 T PO TID PRN 09/08/19 PROVIDER, HISTORICAL lidocaine (LIDODERM) 5 % Adhesive Patch, Medicated APPLY 1 PATCH TO SHOULDER ONCE DAILY PRF PAIN 07/31/19 PROVIDER, HISTORICAL valACYclovir (Valtrex) 500 mg Tablet TAKE 2 TABLETS BY MOUTH THREE TIMES DAILY NEEDED 08/01/19 PROVIDER, HISTORICAL galantamine (RAZADYNE) 12 mg Tablet 12 mg 2 times daily. 05/31/18 PROVIDER, HISTORICAL memantine (NAMENDA) 5 mg Tablet 5 mg 2 times daily. 05/19/18 PROVIDER, HISTORICAL azelastine (ASTELIN) 137 mcg (0.1 %) Aerosol, [place] instill 1 spray into each nostril twice a day 06/17/17 PROVIDER, HISTORICAL LINZESS 145 mcg Capsule 145 mg as needed. 06/21/17 PROVIDER, HISTORICAL linaclotide (LINZESS) 72 mcg Capsule Take 72 mcg by mouth. One time per week PROVIDER, HISTORICAL SUMAtriptan (IMITREX) 100 mg Tablet as needed for Migraine. 04/13/16 PROVIDER, HISTORICAL hydrocortisone (WESTCORT) 0.2 % Cream Apply topically as needed. 07/25/15 PROVIDER, HISTORICAL cetirizine (ZYRTEC) 10 mg tablet Take 10 mg by mouth daily. PROVIDER, HISTORICAL multivitamin (THERAGRAN) tablet Take 1 tablet by mouth daily. PROVIDER, HISTORICAL montelukast (SINGULAIR) 10 mg tablet Take 10 mg by mouth every morning. 12/07/10 PROVIDER, HISTORICAL albuterol (ACCUNEB) 0.63 mg/3 mL nebulizer solution 08/24/10 tacrolimus (PROTOPIC) 0.1 % ointment 1 Appl(s) Top Twice daily Patient not taking: Reported on 06/09/2021 08/24/10 KETOCONAZOLE (NIZORAL TOP) 08/24/10 Outpatient Medications Marked as Taking for the 11/02/21 encounter (Office Visit) with Lucy Shepard MD Medication Sig Dispense Refill ??? chlorthalidone (Hygroten) 25 mg Tablet Take 1 tablet by mouth daily. 90 tablet 3 ??? Estradiol (Lia) 0.025 mg/24 hr Patch Semiweekly Change 1 patch on the skin twice a week. 8 patch 12 ??? calcium carbonate/vitamin D3 (VITAMIN D-3 ORAL) Take by mouth daily. ??? b complex vitamins Capsule Take 1 capsule by mouth daily. ??? MAGNESIUM ORAL Take by mouth. 2 caps QD ??? UNABLE TO FIND daily. MELAEUCA .. multi vit with minerals ??? ibuprofen (Advil;Motrin) 800 mg Tablet TK 1 T PO TID PRN ??? acyclovir (ZOVIRAX) 200 mg Capsule TK 1 C PO FID FOR 5 DAYS ??? cyclobenzaprine (Flexeril) 5 mg Tablet TK 1 T PO TID PRN ??? valACYclovir (Valtrex) 500 mg Tablet TAKE 2 TABLETS BY MOUTH THREE TIMES DAILY NEEDED ??? galantamine (RAZADYNE) 12 mg Tablet 12 mg 2 times daily. 0 ??? memantine (NAMENDA) 5 mg Tablet 5 mg 2 times daily. 0 ??? azelastine (ASTELIN) 137 mcg (0.1 %) Aerosol, [place] instill 1 spray into each nostril twice a day 0 ??? SUMAtriptan (IMITREX) 100 mg Tablet as needed for Migraine. 1 ??? hydrocortisone (WESTCORT) 0.2 % Cream Apply topically as needed. ??? cetirizine (ZYRTEC) 10 mg tablet Take 10 mg by mouth daily. ??? multivitamin (THERAGRAN) tablet Take 1 tablet by mouth daily. ??? montelukast (SINGULAIR) 10 mg tablet Take 10 mg by mouth every morning. ??? albuterol (ACCUNEB) 0.63 mg/3 mL nebulizer solution ??? KETOCONAZOLE (NIZORAL TOP) Apply topically. Current Facility-Administered Medications for the 11/02/21 encounter (Office Visit) with Lucy Shepard MD Medication Dose Route Frequency Provider Last Rate Last Admin ??? ibuprofen (Advil;Motrin) tablet 800 mg 800 mg Oral Q6H PRN Cece Graham CNM Allergies Allergies Allergen Reactions ??? Grass Pollen-[place], Standard Other (See Comments) Runny nose, itching, sneezing ??? Mold Extracts Other (See Comments) Sneezing and runny nose Medical Hx Past Medical History: Diagnosis Date ??? Abnormal glandular Papanicolaou smear of cervix age 15 ??? Asthma ??? Gastric acidity possible ulcer ??? History of nephrolithiasis ??? Memory difficulties 2018 ??? Migraines ??? Osteoporosis ??? Raynaud's disease ??? Shoulder pain R frozen shoulder and rotator cuff repair Surgical Hx Past Surgical History: Procedure Laterality Date ??? CREATED BY [employer] Procedure Date: 01/16/2008 ??? KNEE SURGERY 03/01/14 Right knee; patella surgery ??? LITHOTRIPSY ? ? PRO CYSTOURETHROSCOPY, FULGUR <.5CM LESN N/A 04/18/2017 CYSTO, FULGURATION\BLADDER LESION\W\WO BX\LESS THAN 0.5CM (WRVU 4.05) performed by Luis Michael Jr., MD at [facility] MAIN OR ??? SHOULDER SURGERY Right 07/2019 Family Hx FAMILY HISTORY family history includes Breast Cancer (age of onset: 45) in her paternal grandmother; Cancer in her maternal aunt; Depression in her father and mother; Osteoporosis in her mother. Social Hx SOCIAL HISTORY Social History Socioeconomic History ??? Marital status: Spouse name: Not on file ??? Number of children: Not on file ??? Years of education: Not on file ??? Highest education level: Not on file Occupational History ??? Not on file Tobacco Use ??? Smoking status: Never Smoker ??? Smokeless tobacco: Never Used Vaping Use ??? Vaping Use: Never used Substance and Sexual Activity ??? Alcohol use: No ??? Drug use: No ??? Sexual activity: Yes Partners: Male control/protection: Surgical Comment: vasectomy/04/2016 Suha Other Topics Concern ??? Not on file Social History Narrative with 3 children. Lives in [place], [place]. 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 Eats relatively healthy with fruits, vegetables, yogurt, and milk; minimal meat. Eats 3 meals per day, does not drink tea or coffee, and occasionally drinks soda.Her youngest is 19 yrs old, in college in [place]. The other two are out of the house. She is very involved with her sons family that has lots of psycho social issues, her sons is bipolar, back issue, they have one child together, she had 3 in a previous relationship. She has not gone for counseling. Social Determinants of Health Financial Resource Strain: Not on file Food Insecurity: Not on file Transportation Needs: Not on file Physical Activity: Not on file Housing Stability: Not on file OBJECTIVE: No data found. Wt Readings from Last 3 Encounters: 11/02/21 69.9 kg (154 lb) 08/04/21 69.4 kg (153 lb) 06/09/21 69.9 kg (154 lb 1.6 oz) Body mass index is 23.42 kg/m??. BP Readings from Last 3 Encounters: 11/02/21 110/68 08/04/21 135/87 06/09/21 125/72 Physical Exam Gen: well appearing female in no acute distress Neuro: clear, fluent, logical speech. Ambulates without difficulty. CN grossly intact Pulm: normal work of breathing Breasts: (performed with architectural engineer): Breasts are without masses, skin changes, or dimpling bilaterally. No axillary lymphadenopathy is appreciable. (Bariatric Surgeon present.) Psychiatric: She has a normal mood and affect. Her behavior is normal. Thought content normal. Pelvic Exam: Performed in the presence of a architectural engineer Normal external female genitalia with evidence of mild hypoestrogen: normal bilateral labia majora, labia minora, clitoral shipman, clitoris, and b/l frenula. Vagina moderately atrophic, pale w/ loss of rugae. Normal physiologic discharge. No abnormal discharge or blood in the vaginal vault. Cervix well visualized but no strings visible during speculum exam or felt on bimanual. Cervix without lesions orcervical motion tenderness (CMT). uterus: normal size, mobile, nontender, anteverted position. Adnexa nontender, without masses. Anus and perineum: no lesions. Lab/Radiology Results: TVUS 01/09/2021 IMPRESSION 1. IUD in appropriate position within the endometrial cavity. Where visualized, the endometrium appears normal, evaluation limited by the presence of the IUD. 2. Normal ovaries *My review of images notable for measurement of 2.8 mm EMS EMB: 12/09/2020 DIAGNOSIS Endometrial biopsy: ?1. Fragments of benign endometrium intermixed with ? blood clot and cervical mucus. ?2. Endometrial tissue fragments with features suggestive ? of an endometrial polyp. ?3. No evidence of hyperplasia or endometritis. Pap: 10/21/2020: NILM, HPV negative Assessment: Stacy Albright is a 56 y.o.. female who presents for her annual exam and for ongoing discussion of HRT in the setting of osteoporosis and AUB. 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 Pt is s/p Mirena IUD placed 04/2016 following EMB (benign), EMB 11/2020 (benign), and TVUS 12/2020 w/ 2.8 mm EMS. Per pt, small amount of VB following change in Estradiol patch from 0.1 to 0.025 mg in 08/04/2021 but none since. Prior to 07/2021, last episode of bleeding 12/2020. However, patient endorses hot flashes that are significantly interfering with her quality of life, including difficulty sleeping. She was interested in increasing the dose of Estradiol, at least for summer. We reviewed the risksand benefits of the estradiol patch for HRT--which were also previously discussed--and the pt expressed understanding. She confirmed that she would like to increase the dose for quality of life. I discussed with the patient a possible plan for increase in dose after review with attending. Pt stated a phone-call would be fine to discuss estrogen dose management. After review with attending contract paralegal, Dr. Miner, shortly after patient left, it was felt given the patients very bothersome vasomotor symptoms with Mirena IUD for endometrial proctection, HRT is appropriate, including going back to the 0.1 mg Estradiol patch she was taking if patient desires. Of note, no IUD strings visualized or felt at cervix but given 12/2020 US with IUD in place, suspect strings cut short and does not warrant repeat imaging. I followed up and called Stacy Albright on 11/05/2021 todiscuss increasing the estrogen dose. The patient confirmed her strong desire for increasing Estrogen dose to help control hot flashes, stating she felt well counseled on the risks. Thus, based on increase in vasomotor symptoms with Mirena IUD felt to still be in place for endometrial protection givenconfirmation on 12/2020 US, discussed increasing dose back to previous dose of 01. Mg Estradiol patch. I also reviewed that if the pt were to have VB, she should call/notify the office. The patient was in agreement with this. I also discussed with the patient that I did not see IUD strings on exam, butthat with TVUS from 12/2020 and only one small episode of VB in setting of change in estradiol patch in 07/2021, suspect IUD in place and did not feel strongly another TVUS indicated, and pt was in agreement. Please see summarized plans below: Plan: - Pt will resume 0.1 mg Estradiol patch - Pt to RTC in 3 months for follow up of symptoms - Pt to notify office if has episode of VB - Return for well woman exam in one year or prn Pt plan and care and medical management discussed with Dr. Miner, attending contract paralegal. Lucy Shepard MD PGY2 Brittanie Hardy LPN - 11/02/2021 3:00 PM EST This patient was seen in the OBGYN clinic today. I was present as architectural engineer for the sensitive parts of her examination. Cesar Miner MD - 11/02/2021 3:00 PM EST Patient is a 56 y.o. with a history of hotflashes on HRT presenting for a followup visit. The case was discussed at the time of the visit. The assessment and plan were formulated in discussion with me and I agree with them as documented. I have reviewed the history, physical exam, assessment and plan with Dr. Shepard. Patient is less than 10 years from starting HRT (2013) but timing of menopause is uncertain given that she has had her IUD in place. She has some irregular bleeding since starting HRT which has been worked up and found to be benign. Current IUD provides endometrial protection so risk of uterine hyperplasia/CA is very low. Given her significant symptoms and no increased risk of VTE with transdermal HRT, feel comfortable with her continuing at the dose that manages her symptoms. Her BP was low today, which further decreases her risks on HRT. Would like patient to get fasting lipids to better calculate her ASCVD score but suspect this is also low risk. 3 month follow up after HRT dosing changes recommended. Cesar Miner MD 11/08/2021 5:05 PM documented in this encounter Miscellaneous Notes Addendum Note - Cesar Miner MD - 11/02/2021 3:00 PM EST Addended by: CESAR MINER on: 11/08/2021 05:05 PM Modules accepted: Orders documented in this encounter Plan of Treatment Upcoming Encounters Date Type Specialty Care Team Description 04/10/2022 Appointment Radiology Luis Michael MD [facility] UROLOGY DEPT. [place], [place] [address] (Wo rk) 04/10/2022 Office Visit Urology Luis Michael MD [facility] UROLOGY DEPT. [place], [place] [address] (Wo rk) 07/13/2022 Appointment Radiology Maile Hinojosa MD [facility] ENDOCRINOLOGY [place], [place] [address] (Wo rk) 07/13/2022 Office Visit Endocrinology Maile Hinojosa MD [facility] ENDOCRINOLOGY [place], [place] [address] (Wo rk) documented as of this encounter Visit Diagnoses Diagnosis Encounter for well woman exam with merrick resendiz gynecological exam Hot flashes, menopausal Symptomatic menopausal or female climact wendy states documented in this encounter Care Teams Senior Sql Server Dba Relationship Specialty Start Date End Date Janet Davey APRN PCP - General Family Medicine 07/13/20 [address] [place] [address] documented as of this encounter
--- OUTSIDE RECORDS SUMMARY | 2022-03-23 02:26 | XMS_ITS | Encounter Summary ---
:1965 Author Organization [facility] [place] [address] Care Team Providers Name Role Phone Petar Janet Moss APRN Primary Care Provider Reason for Visit Reason Comments Follow-up Encounter Details Date Type Department Care Team Description 02/12/2022 Office Visit Obstetrics and Desiree Zabala, Raissa flas hes; Gynecology at [facility] [place] MD Hormone replacement therapy (postmenopau yanelis) [place], [place] OBSTETRICS AND [id number] GYNECOLOGY [phone] [place], [place] [address] Social History Tobacco Use Types Packs/Day Years [...] ??F) 02/12/2022 9:11 AM EDT Respiratory Rate - - Oxygen Saturation 100% 02/12/2022 9:11 AM EDT Inhaled Oxygen Concentration - - Weight 63.5 kg (140 lb) 02/12/2022 9:11 AM EDT pt repor lynn Height 172.7 cm (5' 8) 02/12/2022 9:11 AM EDT Body Mass Index 21.29 02/12/2022 9:11 AM EDT documented in this encounter Progress Notes Desiree Zabala MD - 02/12/2022 9:20 AM EDT APRON WORKER Follow Up Visit Reason for Visit: Stacy is a 56 y.o. pre menopausal female with Mirena IUD in place who presents for follow up of HRT and menopausal symptoms. History of Present Illness: Patient has long COVID and presents with supplemental oxygen. She has been worked up for VTE and workup has been negative. This all started 2 months ago following COVID infection with O2 sat and HR problems. Hasn't been able to work for 2 months She has continued to have irregular bleeding while on HRT, with IUD in place (placed 04/2016) and feels that bleeding is likely more than it has been. Bleeding has lasted for longer than a week at timesand is darker blood. Bleeding started within last 2 months (12/31/2021). Hotflashes are well controlled back on her prior dose of estradiol HRT monitoring: HRT start: 2013 Methods tried: Estradiol patch, Mirena IUD (placed 04/2016) Last labs: Lipids 02/12/2022 The 10-year ASCVD risk score (Vinod SUE Jr., et al., 2013) is: 1.3% Values used to calculate the score: Age: 56 years Sex: Female Is Non- : No Diabetic: No Tobacco smoker: No Systolic Blood Pressure: 97 mmHg Is BP treated: No HDL Cholesterol: 75 mg/dL Total Cholesterol: 205 mg/dL Last BP: 97/62 Follow up: q 6 months Pap 09/2020: NILM, neg HPV, endometrial cells EMB 11/2020: Endometrial biopsy: ?1. Fragments of benign endometrium intermixed with ? blood clot and cervical mucus. ?2. Endometrial tissue fragments with features suggestive ? of an endometrial polyp. ?3. No evidence of hyperplasia or endometritis. Patient Active Problem List Diagnosis Date Noted ??? Hormone replacement therapy (postmenopausal) 02/16/2022 ??? Hot flashes, menopausal 11/05/2021 ??? Asthma 12/07/2010 ??? Nephrolithiasis 12/07/2010 ??? Raynaud's disease 12/07/2010 ??? Migraines 12/07/2010 Past Medical History: Diagnosis Date ??? Abnormal glandular Papanicolaou smear of cervix age 15 ??? Asthma ??? Gastric acidity possible ulcer ??? History of nephrolithiasis ??? Memory difficulties 2017 ??? Migraines ??? Osteoporosis ??? Raynaud's disease ??? Shoulder pain R frozen shoulder and rotator cuff repair Past Surgical History: Procedure Laterality Date ??? CREATED BY ZetrOZ AlejandraSJosephWGuido(MSUROL) Procedure Date: 01/16/2008 ??? KNEE SURGERY 03/01/14 Right knee; patella surgery ??? LITHOTRIPSY ? ? PRO CYSTOURETHROSCOPY, FULGUR <.5CM LESN N/A 04/18/2017 CYSTO, FULGURATION\BLADDER LESION\W\WO BX\LESS THAN 0.5CM (WRVU 4.05) performed by Luis Michael Jr., MD at [facility] MAIN OR ??? SHOULDER SURGERY Right 07/2019 Family History Problem Relation Age of Onset ??? Osteoporosis Mother ??? Depression Mother ??? Breast Cancer Paternal Grandmother 45 ??? Cancer Maternal Aunt lymph node CA ??? Depression Father ??? Colorectal Cancer Neg Hx ??? Ovarian Cancer Neg Hx OB History 4 Para 3 Term 3 0 AB 1 Living 3 SAB 1 IAB Ectopic Multiple Live Births # Outc Date GA Lbr Joe/2nd Wgt Sex Del Anes PTL Lv 1 Term 2 Term 3 Term 4 SAB Comments: at 3 months Current Outpatient Medications Medication Sig Dispense Refill ??? Symbicort 160-4.5 mcg/actuation HFA Aerosol Inhaler Inhale 2 puffs into the lungs 2 times daily. ??? estradioL (Lia) 0.1 mg/24 hr Patch Semiweekly Change 1 patch on the skin twice a week. 8 patch12 ??? chlorthalidone (Hygroten) 25 mg Tablet Take 1 tablet by mouth daily. 90 tablet 3 ??? calcium carbonate/vitamin D3 (VITAMIN D-3 ORAL) Take by mouth daily. ??? b complex vitamins Capsule Take 1 capsule by mouth daily. ??? MAGNESIUM ORAL Take by mouth. 2 caps QD ??? UNABLE TO FIND daily. MELAEUCA .. multi vit with minerals ??? acyclovir (ZOVIRAX) 200 mg Capsule TK 1 C PO FID FOR 5 DAYS ??? cyclobenzaprine (Flexeril) 5 mg Tablet TK 1 T PO TID PRN ??? galantamine (RAZADYNE) 12 mg Tablet 12 mg 2 times daily. 0 ??? memantine (NAMENDA) 5 mg Tablet 5 mg 2 times daily. 0 ??? azelastine (ASTELIN) 137 mcg (0.1 %) Aerosol, [place] instill 1 spray into each nostril twice a day 0 ??? SUMAtriptan (IMITREX) 100 mg Tablet as needed for Migraine. 1 ??? hydrocortisone (WESTCORT) 0.2 % Cream Apply topically as needed. ??? multivitamin (THERAGRAN) tablet Take 1 tablet by mouth daily. ??? montelukast (SINGULAIR) 10 mg tablet Take 10 mg by mouth every morning. ??? albuterol (ACCUNEB) 0.63 mg/3 mL nebulizer solution No current facility-administered medications for this visit. Allergies Allergen Reactions ??? Grass Pollen-[place], Standard Other (See Comments) Runny nose, itching, sneezing ??? Mold Extracts Other (See Comments) Sneezing and runny nose ROS: Otherwise negative except as specified in HPI. Physical Exam Vitals: 02/12/22 0911 BP: 97/62 Pulse: 60 Temp: 36.2 ??C (97.2 ??F) SpO2: 100% Weight: 63.5 kg (140 lb) Height: 172.7 cm (5' 8) General: NAD, comfortable, pleasant Lungs: Unlabored breathing Abdomen: soft, nontender, nondistended; no scars, no masses or hepatosplenomegaly Neuro: grossly intact Pelvic: Defer Assessment/Plan: Stacy is a 56 y.o. pre menopausal female with Mirena IUD in place who presents for follow up of HRT and menopausal symptoms. - Yearly lipids reviewed, good candidate for HRT given ASCVD low risk - Continue current dosing with good control of hotflashes - Will start workup of AUB with TVUS though hyperplasia is less likely given IUD protection - Could consider replacing IUD +/- SHG if AUB continues - RTC in June 26. Hot flashes 2. Hormone replacement therapy (postmenopausal) Total time spent day of service on chart review, disease discussion and therapeutic counseling, as well as, documentation and coordination of care: 30 min Desiree Zabala MD 02/12/2022 9:32 AM documented in this encounter Plan of Treatment Upcoming Encounters Date Type Specialty Care Team Description 04/10/2022 Appointment Radiology Luis Michael MD [facility] UROLOGY DEPT. [place], [place] [address] (Wo rk) 04/10/2022 Office Visit Urology Luis Michael MD [facility] UROLOGY DEPT. [place], [place] [address] (Wo rk) 07/13/2022 Appointment Radiology Maile Hinojosa MD [facility] ENDOCRINOLOGY [place], [place] [address] (Wo rk) 07/13/2022 Office Visit Endocrinology Maile Hinojosa MD [facility] ENDOCRINOLOGY [place], [place] [address] (Wo rk) documented as of this encounter Visit Diagnoses Diagnosis Hot flashes Symptomatic menopausal or female climact wendy states Hormone replacement therapy (postmenopau yanelis) Need for prophylactic hormone replacemen t therapy (postmenopausal) documented in this encounter Care Teams Nutritionists Relationship Specialty Start Date End Date Janet Davey APRN PCP - General Family Medicine 07/13/20 [address] [place] [address] documented as of this encounter
--- OUTSIDE RECORDS SUMMARY | 2022-03-23 02:26 | XMS_ITS | Encounter Summary ---
:1965 Author Organization [facility] [place] [address] Care Team Providers Name Role Phone Petar Janet Isa GONCALVES Primary Care Provider Encounter Details Date Type Department Care Team Description 12/05/2021 Telephone Obstetrics and Gynecology Paty Shepard, at [facility] [place] [address] OBSTETRICS & GYNECOLOGY [phone] [place], [place] [address] (Wo rk) Social History Tobacco Use Types Packs/Day Years Used Date Never Smoker Smokeless Tobacco: Never Used Alcohol Use Standard Drinks/Week Comments No 0 (1 standard drink = 0.6 oz pure alcoho l) Sex Assigned at Date Recorded Female 01/29/2022 12:45 PM EDT documented as of this encounter Miscellaneous Notes Telephone Encounter - Lucy Shepard MD - 12/05/2021 5:16 PM EDT Telephone Encounter I spoke with Stacy Albright to discuss how she was feeling on HRT since her last appointment with gynecology on 11/02/2021, now that she is back on her previous dose of 0.1 mg Estradiol patch. Pt states she is doing much better, and has had a decrease in night sweats. I discussed recommendation for fasting lipid panel to assess heart health (to assess CHADs score) while on HRT, and to try to see her within the next couple months in the office for follow-up. Pt is in agreement. Pt states she lives far away, and is wondering if she can do fasting labs in [facility], or day of the appointment. I reviewed with the patient that if a morning appointment is available she can certainly do so, but that if she needs labs closer to home given they need to be fasting labs we can try to coordinate this. I will reach out to schedulers to see about availability. Fasting lipid orders placed today in case pt is able to obtain labs here prior to appointment. Plan above reviewed with Dr. Zabala, attending boiler room operator. Lucy Shepard MD PGY2 Auto Body Builder Apprentice documented in this encounter Plan of Treatment Upcoming Encounters Date Type Specialty Care Team Description 04/10/2022 Appointment Radiology Luis Michael MD [facility] UROLOGY DEPT. [place], [place] [address] ( rk) 04/10/2022 Office Visit Urology Luis Michael MD [facility] UROLOGY DEPT. [place], [place] [address] (Wo rk) 07/13/2022 Appointment Radiology Maile Hinojosa MD [facility] ENDOCRINOLOGY [place], [place] [address] (Wo rk) 07/13/2022 Office Visit Endocrinology Maile Hinojosa MD [facility] ENDOCRINOLOGY [place], [place] [address] (Wo silva) documented as of this encounter Results Lipid Panel (Reflex Direct LDL) (02/12/2022 8:35 AM EDT) athologist Signature Chol, Total 205 mg/dL [facility] Comment: Lower Risk: <200 mg/dL Average Risk: 200-239 mg/dL Higher Risk: >cb=284 mg/dL Triglycerides 86 mg/dL [facility] Comment: Average Risk/Lower Risk: <150 mg/dL Borderline High Risk: 150-199 mg/dL High Risk: 200-499 mg/dL Very High Risk: >be=697 mg/dL HDL 75 mg/dL [facility] Comment: Males: ?? Higher Risk: <40 mg/dL Females: ?? Higher Risk: <50 mg/dL LDL Cholesterol 113 mg/dL [facility] Comment: Lowest Risk: <100 mg/dL Lower Risk: 100-129 mg/dL Borderline High Risk: 130-159 mg/dL High Risk: 160-189 mg/dL Very High Risk: >un=425 mg/dL Chol/HDL Ratio 2.7 ratio [facility] Lipid Interpretation See Note [facility] Comment: Lipid management should be guided by a p atient? s ASCVD risk, goals and preferences. ACC/AHA Guidelines recommend high intens ity statin if clinical ASCVD or LDL greater than or equal to 190 mg/dL. [email or web address]/KTU-WOV-Jrdcxmwfw Adults aged 40-75 with LDL 70-189 mg/dL should have their 10 year ASCVD risk estimated with the ACC/AHA ASCVD risk es timator http://tools.acc.org/PVVVT-Arcu-Viurfjzc r/ Statin should be discussed if risk [...] Organization Address City/State/ZIP Code Phon e Number [place] [phone] documented in this encounter Visit Diagnoses Diagnosis Hot flashes, menopausal Symptomatic menopausal or female climact wendy states Hormone replacement therapy (HRT) documented in this encounter Care Teams Worm Raiser Relationship Specialty Start Date End Date Janet Davey, FINE ARTIST PCP - General Family Medicine 07/13/20 [address] [place] [address] documented as of this encounter
--- OUTSIDE RECORDS SUMMARY | 2022-03-23 02:26 | XMS_ITS | Encounter Summary ---
:1965 Author Organization [facility] [place] [address] Care Team Providers Name Role Phone EdJanet mendez Isa GONCALVES Primary Care Provider Encounter Details Date Type Department Care Team Description 08/17/2021 Telephone Endocrinology at [facility] C Romy Rich, [place] [address] Social History Tobacco Use Types Packs/Day Years Used Date Never Smoker Smokeless Tobacco: Never Used Alcohol Use Standard Drinks/Week Comments No 0 (1 standard drink = 0.6 oz pure alcoho l) Sex Assigned at Date Recorded Female 01/29/2022 12:45 PM EDT documented as of this encounter Miscellaneous Notes Telephone Encounter - Romy Rich RN - 08/17/2021 9:44 AM EST Provider unable to read lab result copy received, requesting new, clear copy be faxed. Electronically routed request to [phone] documented in this encounter Plan of Treatment Upcoming Encounters Date Type Specialty Care Team Description 04/10/2022 Appointment Radiology Luis Michael MD [facility] UROLOGY DEPT. [place], [place] [address] (Wo rk) 04/10/2022 Office Visit Urology Luis Michael MD [facility] UROLOGY DEPT. [place], [place] [address] (Wo rk) 07/13/2022 Appointment Radiology Maile Hinojosa MD [facility] ENDOCRINOLOGY [place], [place] [address] (Wo rk) 07/13/2022 Office Visit Endocrinology Maile Hinojosa MD [facility] ENDOCRINOLOGY [place], [place] [address] (Wo rk) documented as of this encounter Visit Diagnoses Not on filedocumented in this encounter Care Teams Health And Wellness Instructor Relationship Specialty Start Date End Date Janet Davey, CHAPTER RELATIONS ADMINISTRATOR PCP - General Family Medicine 07/13/20 [address] [place] [address] documented as of this encounter
--- OUTSIDE RECORDS SUMMARY | 2022-03-23 02:26 | XMS_ITS | Encounter Summary ---
:1965 Author Organization [facility] [place] [address] Care Team Providers Name Role Phone Janet Davey SACHA Primary Care Provider Encounter Details Date Type Department Care Team Description 09/25/2021 Orders Only Endocrinology at [facility] Maile Mccurdy MD Hypercalciuria [facility] [place] [address] ENDOCRINOLOGY [place], [place] [address] (Wo rk) Social History Tobacco [...] Description 04/10/2022 Appointment Radiology Luis Michael MD [facility] UROLOGY DEPT. [place], [place] [address] (Wo rk) 04/10/2022 Office Visit Urology Luis Michael MD [facility] UROLOGY DEPT. [place], [place] [address] (Wo rk) 07/13/2022 Appointment Radiology Maile Hinojosa MD [facility] ENDOCRINOLOGY [place], [place] [address] (Wo rk) 07/13/2022 Office Visit Endocrinology Maile Hinojosa MD [facility] ENDOCRINOLOGY [place], [place] [address] ( rk) Scheduled Orders Name Type Priority Associated Diagnoses Order S chedule Calcium, urine, 24 hour Lab Routine Hypercalciuria Ex pected: 09/25/2021, Expires: 2021 Creatinine, urine, 24 Lab Routine Hypercalciuria Expe cted: 09/25/2021, hour Expires: 2021 documented as of this encounter Visit Diagnoses Diagnosis Hypercalciuria Unspecified disorders of calcium metabol ism documented in this encounter Care Teams Paper Spooler Relationship Specialty Start Date End Date Janet Davey, SACHA PCP - General Family Medicine 07/13/20 [address] [place] [address] documented as of this encounter
--- OUTSIDE RECORDS SUMMARY | 2022-03-23 02:26 | XMS_ITS | Encounter Summary ---
:1965 Author Organization [place] [place] [address] Care Team Providers Name Role Phone EdJanet mendez Isa GONCALVES Primary Care Provider Reason for Visit Reason Comments Follow-up Encounter Details Date Type Department Care Team Description 08/04/2021 Office Visit Obstetrics and Lucy Shay Osteopfuentes bravo, Gynecology at [facility] MD Jeramie post-menopausal [facility] [place] OBSTETRICS & [phone] GYNECOLOGY [phone] [place], [place] [address] (Wo rk) Social History Tobacco Use Types Packs/Day Years Used Date Never Smoker Smokeless Tobacco: Never Used Alcohol Use Standard Drinks/Week Comments No 0 (1 standard drink = 0.6 oz pure alcoho l) Sex Assigned at Date Recorded Female 01/29/2022 12:45 PM EDT documented as of this encounter Last Filed Vital Signs Vital Sign Reading Time Taken Comments Blood Pressure 135/87 08/04/2021 3:00 PM EST Pulse 68 08/04/2021 3:00 PM EST Temperature 36.7 ??C (98.1 ??F) 08/04/2021 3:00 PM EST Respiratory Rate 16 08/04/2021 3:00 PM EST Oxygen Saturation 97% 08/04/2021 3:00 PM EST Inhaled Oxygen Concentration - - Weight 69.4 kg (153 lb) 08/04/2021 3:00 PM EST Height 172.7 cm (5' 8) 08/04/2021 3:00 PM EST Body Mass Index 23.26 08/04/2021 3:00 PM EST documented in this encounter Progress Notes Lucy Espino MD - 08/04/2021 3:00 PM EST Follow-up Visit: Patient ID: Stacy Albright is a 55 y.o. patient with osteoporosis who presents for further discussion of HRT management in the setting of recent evaluation for postmenopausal bleeding. She S: She reports that she was seen by Endocrinology, and she was told that they had not wanted to start her on alendronate due to her young age. Because of this, they supported her using the HRT to help with her bone density. Stacy reports that neither she nor her Test Engine Evaluator has an objection to goingdown to the lowest dose of her patch. She doesn't want to go off cold turkey, and would prefer to wean down. She reports that she hasn't had bleeding symptoms for quite a while. She last had a little bit of spotting early last spring, but no further bleeding since that time. O: Vitals: 08/04/21 1500 BP: 135/87 Pulse: 68 Resp: 16 Temp: 36.7 ??C (98.1 ??F) TempSrc: Temporal SpO2: 97% Weight: 69.4 kg (153 lb) Height: 172.7 cm (5' 8) Physical Exam: GEN: no acute distress, sitting comfortably in chair PULM: no increased work of breathing NEURO: grossly intact PSYCH: normal mood and affect A/P: Stacy Albright is a 55 y.o. patient who is being treated for osteoporosis and underwent an evaluation for PMB in early 2020. She has been seen by Endocrinology, and they would be supportive of a plan for her to taper to a lower dose of the estrogen patch, as she would still get benefit for her bone he alth. She plans to further taper and discontinue this patch within the next year. Plan to taper from0.1mg Estradiol patch to 0.025mg Estradiol patch today, Rx sent to pt's preferred pharmacy. From a perspective on her PMB, she had a benign EMB in November 2020, and a TVUS in December 2020 that showed a 2.8mm endometrial stripe. Given that she has not had further vaginal bleeding since that time, nofurther evaluation of her endometrial lining is necessary at this time. Mirena IUD inserted in Apr 2016, not due for replacement until 2022. Patient discussed with Dr Do Pierre, attending OBGYN Lucy Espino MD PGY-4 08/04/2021 Do Pierre MD - 08/04/2021 3:00 PM EST The case was discussed in person at the time of the visit or immediately after the visit. The assessment and plan were formulated in discussion with me and I agree with them as documented. I have reviewed the history, physical exam, assessment and plan with the resident. Do Pierre MD documented in this encounter Plan of Treatment Upcoming Encounters Date Type Specialty Care Team Description 04/10/2022 Appointment Radiology Luis Michael MD [facility] UROLOGY DEPT. [place], [place] [address] ([facility]) 04/10/2022 Office Visit Urology Luis Michael MD [facility] UROLOGY DEPT. [place], [place] [address] (Wo rk) 07/13/2022 Appointment Radiology Maile Hinojosa MD [facility] ENDOCRINOLOGY [place], [place] [address] (Wo rk) 07/13/2022 Office Visit Endocrinology Maile Hinojosa MD [facility] ENDOCRINOLOGY [place], [place] [address] (Wo rk) documented as of this encounter Visit Diagnoses Diagnosis Osteoporosis, post-menopausal Senile osteoporosis documented in this encounter Care Teams Plate Glass Installer Helper Relationship Specialty Start Date End Date Janet Davey APRN PCP - General Family Medicine 07/13/20 [address] [place] [address] documented as of this encounter
--- OUTSIDE RECORDS SUMMARY | 2022-03-23 02:26 | XMS_ITS | Encounter Summary ---
:1965 Author Organization [facility] [place] [address] Care Team Providers Name Role Phone Petar Janet Isa GONCALVES Primary Care Provider Encounter Details Date Type Department Care Team Description 07/13/2020 Hospital Encounter Ultrasound at [facility] Ferdinand Michael Nephrolithiasis [facility] [place] [address] UROLOGY DEPT. [phone] [place], [place] [address] Social History Tobacco Use Types [...] (0.1 %) Aerosol, each nostril twice a Furman day SUMAtriptan (IMITREX) as needed for 1 04/13/2016 100 mg Tablet Migraine. hydrocortisone Apply topically as 0 07/25/2015 (WESTCORT) 0.2 % Cream needed. multivitamin (THERAGRAN) Take 1 tablet by 0 tablet mouth daily. montelukast (SINGULAIR) Take 10 mg by mouth 0 10 mg tablet every morning. albuterol (ACCUNEB) 0.63 0 08/24/2010 mg/3 mL nebulizer solution ibuprofen (Advil;Motrin) TK 1 T PO TID PRN 0 04/202002/12/2022 800 mg Tablet oxyCODONE (Roxicodone) 5 TK 1 T PO Q 6 H PRN 0 02/12/2022 mg Tablet promethazine (Phenergan) as needed. 0 05/16/2020 02/12/2022 25 mg Tablet lidocaine (LIDODERM) 5 % APPLY 1 PATCH TO 0 07/3102/12/2022 Adhesive Patch, SHOULDER ONCE DAILY Medicated PRF PAIN valACYclovir (Valtrex) TAKE 2 TABLETS BY 0 201802/12/2022 500 mg Tablet MOUTH THREE TIMES DAILY NEEDED estradioL 0.1 mg/24 hr Change 1 patch on the 24 patch 3 10/17/2020 Patch Semiweekly skin twice a week. LINZESS 145 mcg Capsule 145 mg as needed. 0 06/2102/12/2022 linaCLOtide (Linzess) 72 Take 72 mcg by mouth. 0 02/12/2022 mcg Capsule One time per week levonorgestrel (MIRENA) 1 each by Intrauterine route once. Lot tu01 8ac 0 05/01/2016 05/01/2021 20 mcg/24 hr (5 years) [id number] IUD cetirizine (ZYRTEC) 10 Take 10 mg by mouth 0 02/12/2022 mg tablet daily. tacrolimus (PROTOPIC) 1 Appl(s) Top Twice 0 08/2402/12/2022 0.1 % ointment daily KETOCONAZOLE (NIZORAL Apply topically. 0 08/24/20 10 02/12/2022 TOP) documented as of this encounter Plan of Treatment Upcoming Encounters Date Type Specialty Care Team Description 04/10/2022 Appointment Radiology Ferdinand Michael MD [facility] UROLOGY DEPT. [place], [place] [address] (Wo rk) 04/10/2022 Office Visit Urology Ferdinand Michael MD [facility] UROLOGY DEPT. [place], [place] [address] (Wo rk) 07/13/2022 Appointment Radiology Maile Hinojosa MD [facility] ENDOCRINOLOGY [place], [place] [address] (Wo rk) 07/13/2022 Office Visit Endocrinology Maile Hinojosa MD [facility] ENDOCRINOLOGY [place], [place] [address] (Wo rk) documented as of this encounter Procedures Procedure Name Priority Date/Time Associated Diagnosis Comme nts US RETROPERITONEAL Routine 07/13/2020 8:16 Nephrolithiasis Res ults for this COMPLETE AM EST procedure are i n the results section. documented in this encounter Results US Retroperitoneal Complete (07/13/2020 [...] questions regarding this report, please contact t j carlos number below. Electronically signed by: Antoinette Lawson, [facility] ([phone]), at 8:56 AM ?Mallika Galindo, Sect ion Chief Electronically Signed Final Report ?? 09:02 am Narrative 07/13/2020 9:03 AM EST Renal ? (Signed Final 07/13/2020 09:02 am) PATIENT INFO: ID #: ? [id number] ?: ??[birth year] (54 yrs)(F) Name: ? JESSICA ALBRIGHT ?Visit Date: 07/13/2020 07:58 am PERFORMED BY: Performed By: ? Jolene Alexander RDMS Attending: ?Mateo GILL, Mallika Ribera Referred By: ?FERDINAND MICHAEL JR Location: ? [place] SERVICE(S) PROVIDED: ??URETRO - Retroperitoneal Complete - I [id number] ? [id number] INDICATIONS: ??? stones COMPARISON: Ultrasound: 06/30/19 RIGHT [...] 09:02 am ) PATIENT INFO: ID #: [id number] : 61 (54 y rs)(F) Name: JESSICA ALBRIGHT Visit Date: 07/13 07:58 am PERFORMED BY: Performed By: Sidra Alexander RDMS Attending: Mallika Galindo MD Referred By: FERDINAND MICHAEL JR Location: [place] SERVICE(S) PROVIDED: URETRO - Retroperitoneal Complete - [facility] [id number] INDICATIONS: ? stones COMPARISON: Ultrasound: 06/30/19 RIGHT [...] below. Electronically signed by: Antoinette Lawson, Radiology [place] ([phone]), at 8:56 AM Mallika Galindo, Clothing Sales Assistant Electronically Signed Final Report 07/13 09:02 am MD KARLIE Kennedy Jr. US GEN ORDERABLES documented in this encounter Visit Diagnoses Diagnosis Nephrolithiasis Calculus of kidney documented in this encounter Care Teams Measurement Department Chief Clerk Relationship Specialty Start Date End Date Janet Davey APRN PCP - General Family Medicine 07/13/20 [address] [place] [address] documented as of this encounter
--- OUTSIDE RECORDS SUMMARY | 2022-03-23 02:26 | XMS_ITS | Encounter Summary ---
:1965 Author Organization [facility] [place] [address] Care Team Providers Name Role Phone Janet Davey SACHA Primary Care Provider Encounter Details Date Type Department Care Team Description 03/30/2019 Orders Only [place] [facility] [place] Michael Jr., MD [facility] [place] [address] UROLOGY DEPT. [phone] [place], [place] [address] (Wo rk) Social History Tobacco [...] Description 04/10/2022 Appointment Radiology Luis Michael MD [facility] UROLOGY DEPT. [place], [place] [address] (Wo rk) 04/10/2022 Office Visit Urology Luis Michael MD [facility] UROLOGY DEPT. [place], [place] [address] (Wo rk) 07/13/2022 Appointment Radiology Maile Hinojosa MD [facility] ENDOCRINOLOGY [place], [place] [address] (Wo rk) 07/13/2022 Office Visit Endocrinology Maile Hinojosa MD [facility] ENDOCRINOLOGY [place], [place] [address] (Wo rk) documented as of this encounter Visit Diagnoses Not on filedocumented in this encounter Care Teams Grain Grader Relationship Specialty Start Date End Date Janet Davey, SPOOLER OPERATOR PCP - General Family Medicine 06/23/18 07/12/20 [address] [place] [address] documented as of this encounter
--- OUTSIDE RECORDS SUMMARY | 2022-03-23 02:26 | XMS_ITS | Encounter Summary ---
:1965 Author Organization [facility] [address] Care Team Providers Name Role Phone Petar Janet Moss APRN Primary Care Provider Encounter Details Date Type Department Care Team Description 06/12/2021 Telephone Obstetrics and Gynecology [place] [address] Social History Tobacco Use Types Packs/Day Years Used Date Never Smoker Smokeless Tobacco: Never Used Alcohol Use Standard Drinks/Week Comments No 0 (1 standard drink = 0.6 oz pure alcoho l) Sex Assigned at Date Recorded Female 01/29/2022 12:45 PM EDT documented as of this encounter Miscellaneous Notes Telephone Encounter - Sydney Silva RN - 06/12/2021 1:55 PM EDT Returning Stacy Albright's call to discuss her visit with her director of sales support. Stacy was last seenon 01/09/[address] Lucy Shepard where they dicussed recommendation to stop HRT. When Stacy went to her director of sales support on 06/09 they recommended reducing dose of HRT per patient. Per chart review of this visit the endocrine team recommended this dose reduction instead of discontinuation to help her bones. Patient asking for this medication change and follow up on need for Mirena IUD thatis currently in place. Patient requests plan via [employer] message. Will route this encounter to her provider team. Telephone Encounter - Sydney Silva RN - 06/12/2021 1:54 PM EDT ----- Message from Jeanette Lopez sent at 06/12/2021 1:32 PM EDT ----- Regarding: Next Step Caller's name: Stacy Albright Call back #: [phone] Patient's provider/team: Dr Kumar Reason for call: Please refer to Dr Kumar's note 01/09/21 she has gone to the Osteoporosis Doctorand would like to know what is the next step? documented in this encounter Plan of Treatment Upcoming Encounters Date Type Specialty Care Team Description 04/10/2022 Appointment Radiology Luis Michael MD [facility] UROLOGY DEPT. [place], [place] [address] (Wo rk) 04/10/2022 Office Visit Urology uLis Michael MD [facility] UROLOGY DEPT. [place], [place] [address] (Wo rk) 07/13/2022 Appointment Radiology Maile Hinojosa MD [facility] ENDOCRINOLOGY [place], [place] [address] (Wo rk) 07/13/2022 Office Visit Endocrinology Maile Hinojosa MD [facility] ENDOCRINOLOGY [place], [place] [address] (Wo rk) documented as of this encounter Visit Diagnoses Not on filedocumented in this encounter Care Teams Sole Assessor Relationship Specialty Start Date End Date Janet Davey APRN PCP - General Family Medicine 07/13/20 [address] [place] [address] documented as of this encounter
--- OUTSIDE RECORDS SUMMARY | 2022-03-23 02:26 | XMS_ITS | Encounter Summary ---
:1965 Author Organization [facility] [address] Care Team Providers Name Role Phone Janet Davey APRN Primary Care Provider Reason for Visit Reason Comments Medication Refill Encounter Details Date Type Department Care Team Description 09/16/2019 [facility] Victor Manuel cifuentes OBSTETRICS & [place] [address] [place] [address] [phone] (Wo rk) Social History Tobacco Use Types [...] Description 04/10/2022 Appointment Radiology Luis Michael MD [facility] UROLOGY DEPT. [place], [place] [address] (Wo rk) 04/10/2022 Office Visit Urology Luis Michael MD [facility] UROLOGY DEPT. [place], [place] [address] (Wo rk) 07/13/2022 Appointment Radiology Maile Hinojosa MD [facility] ENDOCRINOLOGY [place], [place] [address] (Wo rk) 07/13/2022 Office Visit Endocrinology Maile Hinojosa MD [facility] ENDOCRINOLOGY [place], [place] [address] (Wo rk) documented as of this encounter Visit Diagnoses Not on filedocumented in this encounter Care Teams Casino Cage Manager Relationship Specialty Start Date End Date Janet Davey, SACHA PCP - General Family Medicine 06/23/18 07/12/20 [address] [place] [address] documented as of this encounter
--- OUTSIDE RECORDS SUMMARY | 2022-03-23 02:26 | XMS_ITS | Encounter Summary ---
:1965 Author Organization [facility] [place] [address] Care Team Providers Name Role Phone Edvanessa Janet Vanessa GONCALVES Primary Care Provider Encounter Details Date Type Department Care Team Description 02/12/2022 Hospital Encounter Ultrasound at [facility] [place] [place] Ludy Grace MD Vaginal bleeding [facility] [address] [place] OBSTETRICS AND [address] GYNECOLOGY [phone] [place], [place] [address] Social History Tobacco Use Types Packs/Day Years Used Date Never Smoker Smokeless Tobacco: Never Used Alcohol Use Standard Drinks/Week Comments No 0 (1 standard drink = 0.6 oz pure alcoho l) Sex Assigned at Date Recorded Female 01/29/2022 12:45 PM EDT documented as of this encounter Medications at Time of Discharge Medication Sig Dispensed Refills Start Date End Date Symbicort 160-4.5 Inhale 2 puffs into 0 2 mcg/actuation HFA Aerosol the lungs 2 times Inhaler daily. estradioL (Lia) 0.1 mg/24 Change 1 patch on 8 patch 12 0 01/04/2022 hr Patch Semiweekly the skin twice a week. chlorthalidone (Hygroten) Take 1 tablet by 90 tablet 3 08/28 25 mg Tablet mouth daily. calcium carbonate/vitamin Take by mouth daily. 0 D3 (VITAMIN D-3 ORAL) b complex vitamins Capsule Take 1 capsule [...] galantamine (RAZADYNE) 12 12 mg 2 times daily. 0 05/31/2018 mg Tablet memantine (NAMENDA) 5 mg 5 mg 2 times daily. 0 Tablet azelastine (ASTELIN) 137 instill 1 spray into 0 1 mcg (0.1 %) Aerosol, [place] each nostril twice a day SUMAtriptan (IMITREX) 100 as needed for 1 016 mg Tablet Migraine. hydrocortisone (WESTCORT) Apply topically as 0 0.2 % Cream needed. multivitamin (THERAGRAN) Take 1 tablet by 0 tablet mouth daily. montelukast (SINGULAIR) 10 Take 10 mg by mouth 0 12/07/2010 mg tablet every morning. albuterol (ACCUNEB) 0.63 0 08/24/2010 mg/3 mL nebulizer solution documented as of this encounter Plan of Treatment Upcoming Encounters Date Type Specialty Care Team Description 04/10/2022 Appointment Radiology Luis Michael MD [facility] UROLOGY DEPT. [place], [place] [address] (Rahul ascencio) 04/10/2022 Office Visit Urology Luis Michael MD [facility] UROLOGY DEPT. [place], [place] [address] (Rahul ascencio) 07/13/2022 Appointment Maile Ríos MD [facility] ENDOCRINOLOGY [place], [place] [address] (Rahul ascencio) 07/13/2022 Office Visit Endocrinology Maile Hinojosa MD [facility] [address] [place], [place] [address] (Wo rk) documented as of this encounter Procedures Procedure Name Priority Date/Time Associated Comments Diagnosis US TRANSVAGINAL NON Routine 02/12/2022 8:14 AM Vaginal bleedin g Results for this OB EDT procedure are i n the results section. documented in this encounter Results US Transvaginal Non OB (02/12/2022 8:14 AM [...] ovary. Electronically signed by: Weston mendosa MD, [facility] ([phone]), at 9:24 AM Thank you for letting us participate in the care of this patient. If you are a [facility] er and have any questions regarding this report, please contact the number above. For patients who have ques tions, please contact the [facility] professio nal that requested your imaging first. ? Weston Martin, Staff Physician Electronically Signed Final Report ?? 09:31 am Narrative 02/12/2022 9:31 AM EDT Gynecological Report ?(Signed Final 02/12/2022 09:31 am) PATIENT INFO: ID #: ? [id number] ?: ??[birth year] (56 yrs)(F) Name: ? JESSICAKATIE GTZ ?Visit Date: 02/12/2022 07:57 am PERFORMED BY: Performed By: ? Desiree Burrell RDMS Attending: ?Veronica GILL, Butch Maloney Referred By: ?LUDY GRACE Location: ? [place] SERVICE(S) PROVIDED: UTV - Transvaginal - [id number] ?[id number] U3D - ??3D rendering with interpretatio n - [id number] ? [id number] INDICATIONS: vaginal bleeding, IUD in place TECHNIQUE/SCAN QUALITY: Technique: ?Transducer ID#:[id number] COMPARISON: Transvaginal ultrasound 01/09/21 -------- HISTORY: -------- Age: ?? 56 Hormone Treatment: ? IUD ------- UTERUS: ------- Uterus: ? Visualized Position: ?? Anteverted Size (cm) ?L: ??7.2 ? W: ?? 3.8 ?H: ??4.1 Description: ?? Coronal view of [place] sweetie demonstrates ?normal convex ut erine fundal [...] 01/25 09:31 am) PATIENT INFO: ID #: [id number] : 61 (56 y rs)(F) Name: JESSICA GTZ Visit Date: 02/12 07:57 am PERFORMED BY: Performed By: Desiree Burrell RDMS Attending: Weston Martin MD Referred By: LUDY GRACE Location: [place] SERVICE(S) PROVIDED: UTV - Transvaginal - [id number] U3D - 3D rendering with interpretation - [id number] INDICATIONS: vaginal bleeding, IUD in place TECHNIQUE/SCAN [...] ovary. Electronically signed by: Weston mendosa MD, [facility] ([phone]), at 9:24 AM Thank you for letting us participate in the care of this patient. If you are a [facility] er and have any questions regarding this report, please contact the number above. For patients who have ques tions, please contact the [facility] professio nal that requested your imaging first. Weston Martin, Staff Physician Electronically Signed Final Report 02/12 09:31 am Ludy Grace MD IMG PELVIC ORDERABLES documented in this encounter Visit Diagnoses Diagnosis Vaginal bleeding Other specified noninflammatory disorder of vagina documented in this encounter Care Teams Litigation Legal Assistant Relationship Specialty Start Date End Date Janet Davey APRN PCP - General Family Medicine 07/13/20 [address] [place] [address] documented as of this encounter
--- OUTSIDE RECORDS SUMMARY | 2022-03-23 02:26 | XMS_ITS | Encounter Summary ---
:1965 Author Organization [facility] [place] [address] Care Team Providers Name Role Phone Petar Janet Isa GONCALVES Primary Care Provider Encounter Details Date Type Department Care Team Description 06/30/2019 Hospital Encounter Ultrasound at [facility] [place] [place] Ferdinand Pennington History of [facility] MD Jules nephrolithiasis [facility] [place] [address] UROLOGY DEPT. [phone] [place] [address] Social History Tobacco Use Types Packs/Day Years Used Date Never Smoker Smokeless Tobacco: Never Used Alcohol Use Standard Drinks/Week Comments No 0 (1 standard drink = 0.6 oz pure alcoho l) Sex Assigned at Date Recorded Female 01/29/2022 12:45 PM EDT documented as of this encounter Medications at Time of Discharge Medication Sig Dispensed Refills Start Date End Date galantamine (RAZADYNE) 12 mg 2 times daily. 0 01/2018 12 mg Tablet memantine (NAMENDA) 5 mg 5 mg 2 times daily. 0 Tablet azelastine (ASTELIN) 137 instill 1 spray into 0 1 mcg (0.1 %) Aerosol, each nostril twice a [place] day SUMAtriptan (IMITREX) as needed for 1 04/13/2016 100 mg Tablet Migraine. hydrocortisone Apply topically as 0 07/25/2015 (WESTCORT) 0.2 % Cream needed. multivitamin (THERAGRAN) Take 1 tablet by 0 tablet mouth daily. montelukast (SINGULAIR) Take 10 mg by mouth 0 10 mg tablet every morning. albuterol (ACCUNEB) 0.63 0 08/24/2010 mg/3 mL nebulizer solution estradiol 0.1 mg/[address] 1 patch onto 24 patch 3 08/0709/16/2019 Patch Semiweekly the skin twice a week. LINZESS 145 mcg Capsule 145 mg as needed. 0 06/2102/12/2022 linaCLOtide (Linzess) 72 Take 72 mcg by mouth. 0 02/12/2022 mcg Capsule One time per week levonorgestrel (MIRENA) 1 each by Intrauterine route once. Lot tu01 8ac 0 05/01/2016 05/01/2021 20 mcg/24 hr (5 years) [id number] IUD cetirizine (ZYRTEC) 10 Take 10 mg by mouth 0 02/12/2022 mg tablet daily. tacrolimus (PROTOPIC) 1 Appl(s) Top Twice 0 08/2402/12/2022 0.1 % ointment daily KETOCONAZOLE (NIZORAL Apply topically. 0 08/24/20 10 02/12/2022 TOP) documented as of this encounter Plan of Treatment Upcoming Encounters Date Type Specialty Care Team Description 04/10/2022 Appointment Radiology Ferdinand Pennington MD [facility] UROLOGY DEPT. [place], [place] [address] (Wo rk) 04/10/2022 Office Visit Urology Ferdinand Pennington MD [facility] UROLOGY DEPT. [place], [place] [address] (Wo rk) 07/13/2022 Appointment Radiology Maile Hinojosa MD [facility] ENDOCRINOLOGY [place], [place] [address] (Wo rk) 07/13/2022 Office Visit Endocrinology Maile Hinojosa MD [facility] ER DR ENDOCRINOLOGY [place], [place] [address] (Rahul ascencio) documented as of this encounter Procedures Procedure Name Priority Date/Time Associated Diagnosis Comme nts US RETROPERITONEAL Routine 06/30/2019 3:50 History of Result s for this COMPLETE PM EST nephrolithiasis procedure ar e in the results section. documented in this encounter Results US Retroperitoneal Complete (06/30/2019 3:50 PM EST) Anatomical Region Laterality Modality Abdomen Ultrasound Specimen (Source) Anatomical Collection Method Collection Time Re ceived Time Location / / Volume Laterality 06/30/2019 3:50 PM EST Impressions 06/30/2019 4:05 PM EST 1. RIGHT kidney: 10.1 cm without eviden ce for hydronephrosis. No renal calculi identified within the RIGHT kidney. 2. LEFT kidney: 10.4 cm in length witho ut evidence for hydronephrosis. There is a tiny 2 to 3 mm nonobstructing mid kim e renal calculus. 3. The bladder is of normal contour and distended. No bladder calculi identified. Thank you for letting us participate in the care of this patient. For questions regarding this report, please contact t j carlos number below. Electronically signed by: Celnie zee MD, [facility] ([phone]), at 3:56 PM ?Celine Anna, Staff Physician Electronically Signed Final Report ?? 04:04 pm Narrative 06/30/2019 4:05 PM EST Renal ? (Signed Final 06/30/2019 04:04 pm) PATIENT INFO: ID #: ? [id number] ?: ??[birth year] (53 yrs) Name: ? JESSICA GTZ ?Visit Date: 06/30/2019 03:50 pm PERFORMED BY: Performed By: ? Humberto Donnelly RDMS Attending: ?Shoshana GILL, Lela Gee. Referred By: ?FERDINAND PENNINGTON Location: ? [place] SERVICE(S) PROVIDED: ??URETRO - Retroperitoneal Complete - I [id number] ? [id number] INDICATIONS: ??? stones COMPARISON: Ultrasound: Renal / Bladder 06/11/18 RIGHT KIDNEY: Size (cm) ?L: ??10.1 Cortical Thickness: ?Normal Cortical Echogenicity: ?? Normal Hydronephrosis: ?No sonogr aphic evidence Comment ? No renal calculi seen. : LEFT KIDNEY: Size (cm) ?L: ??10.4 Cortical Thickness: ?Normal Cortical Echogenicity: ?? Normal Hydronephrosis: ?No sonogr aphic evidence Comment ? Single small nonobstructi ng renal calculus seen : ? in the mid pole measur ing 3 mm. URINARY BLADDER: Pre-void (cm) ? L: ??10.4 ?A P: ??8.1 ? TV: ??9.9 Vol (ml): ?436.7 Comment ? Distended, normal contour . : Procedure Note Celine Anna MD - 06/30/2019Forma tting of this note might be different from the original. Renal (Signed Final 06/30/2019 04:04 pm ) PATIENT INFO: ID #: [id number] : 61 (53 y rs) Name: JESSICA GTZ Visit Date: 06/30 03:50 pm PERFORMED BY: Performed By: Humberto Donnelly RDMS Attending: Celine Anna MD Referred By: FERDINAND PENNINGTON JR Location: [place] SERVICE(S) PROVIDED: URETRO - Retroperitoneal Complete - [facility] 3517 [id number] INDICATIONS: ? stones COMPARISON: Ultrasound: Renal / Bladder 06/11/18 RIGHT KIDNEY: Size (cm) L: 10.1 Cortical Thickness: Normal Cortical Echogenicity: Normal Hydronephrosis: No sonographic evidence Comment No renal calculi seen. : LEFT KIDNEY: Size (cm) L: 10.4 Cortical Thickness: Normal Cortical Echogenicity: Normal Hydronephrosis: No sonographic evidence Comment Single small nonobstructing crissy al calculus seen : in the mid pole measuring 3 mm. URINARY BLADDER: Pre-void (cm) L: 10.4 AP: 8.1 TV: 9.9 Vol (ml): 436.7 Comment Distended, normal contour. : IMPRESSION 1. RIGHT kidney: 10.1 cm without eviden ce for hydronephrosis. No renal calculi identified within the RIGHT kidney. 2. LEFT kidney: 10.4 cm in length witho ut evidence for hydronephrosis. There is a tiny 2 to 3 mm nonobstructing mid kim e renal calculus. 3. The bladder is of normal contour and distended. No bladder calculi identified. Thank you for letting us participate in the care of this patient. For questions regarding this report, please contact t he number below. Electronically signed by: Celine zee MD, [facility] [place] ([phone]), at 3:56 PM Celine Anna, Staff Physician Electronically Signed Final Report 06/30 04:04 pm Ferdinand Pennington Jr., [facility] GEN ORDERABLES documented in this encounter Visit Diagnoses Diagnosis History of nephrolithiasis Personal history of urinary calculi documented in this encounter Care Teams Sanipractic Physician Relationship Specialty Start Date End Date Janet Davey APRN PCP - General Family Medicine 06/23/18 07/12/20 [address] [place] [address] documented as of this encounter
--- OUTSIDE RECORDS SUMMARY | 2022-03-23 02:26 | XMS_ITS | Encounter Summary ---
:1965 Author Organization [facility] [place] [address] Care Team Providers Name Role Phone Petar Janet Moss PROTOTYPE MODEL MAKER Primary Care Provider Reason for Visit Reason Comments Annual Exam Encounter Details Date Type Department Care Team Description 10/20/2019 Office Visit Obstetrics and Ida Ron, Menopause ; Gynecology at [facility] PROTOTYPE MODEL MAKER Encounter for gynecological examination without abnormal finding Formerly [facility] [address] [place] OBSTETRICS & [id number] GYNECOLOGY [phone] [place], [place] [address] Social History Tobacco Use Types Packs/Day Years Used Date Never Smoker Smokeless Tobacco: Never Used Alcohol Use Standard Drinks/Week Comments No 0 (1 standard drink = 0.6 oz pure alcoho l) Sex Assigned at Date Recorded Female 01/29/2022 12:45 PM EDT documented as of this encounter Last Filed Vital Signs Vital Sign Reading Time Taken Comments Blood Pressure 110/67 10/20/2019 3:13 PM EST Pulse 65 10/20/2019 3:13 PM EST Temperature 36.9 ??C (98.4 ??F) 10/20/2019 3:13 PM EST Respiratory Rate - - Oxygen Saturation 100% 10/20/2019 3:13 PM EST Inhaled Oxygen Concentration - - Weight 70.1 kg (154 lb 9.6 oz) 10/20/2019 3:13 PM EST Height 172 cm (5' 7.72) 10/20/2019 3:13 PM EST Body Mass Index 23.7 10/20/2019 3:13 PM EST documented in this encounter Progress Notes Sarah Nieto Ken - 10/20/2019 3:20 PM EST S: Pt is a 54 yo female who presents for her annual physical. Pt has a Mirena in place to help with spotting and uses estradiol patches to help maintain bone health. Her Mirena was placed in 2016. She denies any pain or discharge. She is still spotting, she had one week where the spotting was h appening daily. However, that has since subsided and she is back to her baseline where she spots a few times a week. She cannot remember the last time she tried to feel for her IUD strings. Pt reports that the estradiol patches seem to be helping with her mood and that the physicians that monitor her osteoporosis are also pleased with the results. Past Medical History: Diagnosis Date ??? Abnormal glandular Papanicolaou smear of cervix age 15 ??? Asthma ??? Gastric acidity possible ulcer ??? History of nephrolithiasis ??? Memory difficulties 2018 ??? Migraines ??? Osteoporosis ??? Raynaud's disease ??? Shoulder pain R frozen shoulder and rotator cuff repair ART TRACER hx: Pt reports occasional spotting. Does not have to wear a liner. Spotting smaller than size ofpenny. Hx of PID as a teenager and chlamydia 26 years ago, which she was treated for. Last pap done in 07/2017, results - NILM. Denies any bladder or bowel concerns. Denies incontinence. Past Surgical History: Procedure Laterality Date ??? CREATED BY INTERFACE E.S.W.L.(MSUROL) Procedure Date: 01/16/2008 ??? KNEE SURGERY 03/01/14 Right knee; patella surgery ??? LITHOTRIPSY ? ? PRO CYSTOURETHROSCOPY, FULGUR <.5CM LESN N/A 04/18/2017 CYSTO, FULGURATION\BLADDER LESION\W\WO BX\LESS THAN 0.5CM (WRVU 4.05) performed by Luis Michael Jr., MD at [facility] MAIN OR ??? SHOULDER SURGERY Right 07/2019 Family History Problem Relation Age of Onset ??? Osteoporosis Mother ??? Depression Mother ??? Breast Cancer Paternal Grandmother 45 ??? Cancer Maternal Aunt lymph node CA ??? Depression Father ??? Colorectal Cancer Neg Hx ??? Ovarian Cancer Neg Hx Social History Socioeconomic History ??? Marital status: Spouse name: None ??? Number of children: None ??? Years of education: None ??? Highest education level: None Occupational History ??? None Social Needs ??? Financial resource strain: None ??? Food insecurity Worry: None Inability: None ??? Transportation needs Medical: None Non-medical: None Tobacco Use ??? Smoking status: Never Smoker ??? Smokeless tobacco: Never Used Substance and Sexual Activity ??? Alcohol use: No ??? Drug use: No ??? Sexual activity: Yes Partners: Male control/protection: Surgical Comment: vasectomy/04/2016 Mirena Lifestyle ??? Physical activity Days per week: None Minutes per session: None ??? Stress: None Relationships ??? Social connections Talks on phone: None Gets together: None Attends anabaptist service: None Active member of club or organization: None Attends meetings of clubs or organizations: None Relationship status: None ??? Intimate partner violence Fear of current or ex partner: None Emotionally abused: None Physically abused: None Forced sexual activity: None Other Topics Concern ??? None Social History Narrative with 3 children. Lives in [place], [place]. 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 Eats relatively healthy with fruits, vegetables, yogurt, and milk; minimal meat. Eats 3 meals per day, does not drink tea or coffee, and occasionally drinks soda.Her youngest is 19 yrs old, in college in [place]. The other two are out of the house. She is very involved with her sons family that has lots of psycho social issues, her sons is bipolar, back issue, they have one child together, she had 3 in a previous relationship. She has not gone for counseling. Current Outpatient Medications on File Prior to Visit Medication Sig Dispense Refill ??? cyclobenzaprine (Flexeril) 5 mg Tablet TK 1 T PO TID PRN ??? lidocaine (LIDODERM) 5 % Adhesive Patch, Medicated APPLY 1 PATCH TO SHOULDER ONCE DAILY PRF PAIN ??? [DISCONTINUED] estradiol 0.1 mg/24 hr Patch Semiweekly APPLY 1 PATCH ONTO THE SKIN TWICE A WEEK 24 patch 3 ??? galantamine (RAZADYNE) 12 mg Tablet 0 ??? memantine (NAMENDA) 5 mg Tablet 0 ??? azelastine (ASTELIN) 137 mcg (0.1 %) Aerosol, [place] instill 1 spray into each nostril twice a day 0 ??? LINZESS 145 mcg Capsule 145 mg every other day. 0 ??? linaclotide (LINZESS) 72 mcg Capsule Take 72 mcg by mouth every other day. ??? SUMAtriptan (IMITREX) 100 mg Tablet as needed for Migraine. 1 ??? levonorgestrel (MIRENA) 20 mcg/24 hr (5 years) IUD 1 each by Intrauterine route once. Lot [id number] ??? hydrocortisone (WESTCORT) 0.2 % Cream Apply topically as needed. ??? cetirizine (ZYRTEC) 10 mg tablet Take 10 mg by mouth daily. ??? multivitamin (THERAGRAN) tablet Take 1 tablet by mouth daily. ??? montelukast (SINGULAIR) 10 mg tablet Take 10 mg by mouth every morning. ??? tacrolimus (PROTOPIC) 0.1 % ointment 1 Appl(s) Top Twice daily ??? valACYclovir (Valtrex) 500 mg Tablet TAKE 2 TABLETS BY MOUTH THREE TIMES DAILY NEEDED ??? albuterol (ACCUNEB) 0.63 mg/3 mL nebulizer solution (Patient not taking: No sig reported) ??? KETOCONAZOLE (NIZORAL TOP) (Patient not taking: No sig reported) No current facility-administered medications on file prior to visit. Allergies Allergen Reactions ??? Grass Pollen-[place], Standard Other (See Comments) Runny nose, itching, sneezing ??? Mold Extracts Other (See Comments) Sneezing and runny nose O: BP 110/67 (BP Location (NBP): Right arm, Patient Position: Sitting) Pulse 65 Temp 36.9 ??C (98.4??F) (Temporal) Ht 172 cm (5' 7.72) Wt 70.1 kg (154 lb 9.6 oz) SpO2 100% BMI 23.70 kg/m?? General: Pleasant, no acute distress HEENT: No goiter or thyroid nodules appreciated Cardiac: RRR, normal S1, S2, no m/r/g Pulm: clear to ascultation bilaterally, no wheezes, rales or rhonchi, breathing comfortably Breasts: Without suspicious masses, puckers or D/C Abdominal: soft, nontender, nondistended, no masses appreciated Pelvic: External genitalia without lesions, normal architecture Internal genitalia: cervix without lesions or concerning findings, no IUD string seen Bimanual: no masses appreciated, uterus anteverted Adnexa without obvious masses or tenderness A: Pt is a 54 yo female presenting for her annual exam. She continues to experience spotting. Has a Mirena in place. Estradiol patches aiding in mood and bone health. P: - F/u in one year. - Pap due in 2020. - Mammogram done today - Labs: FSH - determine source of spotting - Mirena? 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 Pt feels so much better on the patch and would like it refilled. She does con't to have scant spotting regularly and is wondering if she is in menopause. Past Medical History: Diagnosis Date ??? Abnormal glandular Papanicolaou smear of cervix age 15 ??? Asthma ??? Gastric acidity possible ulcer ??? History of nephrolithiasis ??? Memory difficulties 2018 ??? Migraines ??? Osteoporosis ??? Raynaud's disease ??? Shoulder pain R frozen shoulder and rotator cuff repair Past Surgical History: Procedure Laterality Date ??? CREATED BY INTERFACE Alej[employer]WGu[employer]) Procedure Date: 01/16/2008 ??? KNEE SURGERY 03/01/14 Right knee; patella surgery ??? LITHOTRIPSY ? ? PRO CYSTOURETHROSCOPY, FULGUR <.5CM LESN N/A 04/18/2017 CYSTO, FULGURATION\BLADDER LESION\W\WO BX\LESS THAN 0.5CM (WRVU 4.05) performed by Luis Michael Jr., MD at [facility] MAIN OR ??? SHOULDER SURGERY Right 07/2019 ART TRACER History: Pt is a 54??year old G 4 P 3 female. Last pap 07/2017 NILM; hx abnormal pap at age 15 that required cryotherapy. Hx PID at age 15; no other hx of STD's/STI's. Last mammogram: 07/2018 neg.,today. DEXA scan done in??06/27/17?femoral neck with noted T-score of -2.7. She sees??Dr Hall. Pt reports taking calcium and Vitamin D supplements; followed by endocrine. Family History Problem Relation Age of Onset ??? Osteoporosis Mother ??? Depression Mother ??? Breast Cancer Paternal Grandmother 45 ??? Cancer Maternal Aunt lymph node CA ??? Depression Father ??? Colorectal Cancer Neg Hx ??? Ovarian Cancer Neg Hx Social History Socioeconomic History ??? Marital status: Spouse name: Not on file ??? Number of children: Not on file ??? Years of education: Not on file ??? Highest education level: Not on file Occupational History ??? Not on file Social Needs ??? Financial resource strain: Not on file ??? Food insecurity Worry: Not on file Inability: Not on file ??? Transportation needs Medical: Not on file Non-medical: Not on file Tobacco Use ??? Smoking status: Never Smoker ??? Smokeless tobacco: Never Used Substance and Sexual Activity ??? Alcohol use: No ??? Drug use: No ??? Sexual activity: Yes Partners: Male control/protection: Surgical Comment: vasectomy/04/2016 Mirena Lifestyle ??? Physical activity Days per week: Not on file Minutes per session: Not on file ??? Stress: Not on file Relationships ??? Social connections Talks on phone: Not on file Gets together: Not on file Attends anabaptist service: Not on file Active member of club or organization: Not on file Attends meetings of clubs or organizations: Not on file Relationship status: Not on file ??? Intimate partner violence Fear of current or ex partner: Not on file Emotionally abused: Not on file Physically abused: Not on file Forced sexual activity: Not on file Other Topics Concern ??? Not on file Social History Narrative with 3 children. Lives in [place], [place]. 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 Eats relatively healthy with fruits, vegetables, yogurt, and milk; minimal meat. Eats 3 meals per day, does not drink tea or coffee, and occasionally drinks soda.Her youngest is 19 yrs old, in college in [place]. The other two are out of the house. She is very involved with her sons family that has lots of psycho social issues, her sons is bipolar, back issue, they have one child together, she had 3 in a previous relationship. She has not gone for counseling. 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 cyclobenzaprine (Flexeril) 5 mg Tablet TK 1 T PO TID PRN ??? lidocaine (LIDODERM) 5 % Adhesive Patch, Medicated APPLY 1 PATCH TO SHOULDER ONCE DAILY PRF PAIN ??? [START ON 10/22/2019] estradioL 0.1 mg/24 hr Patch Semiweekly Change 1 patch on the skin twice a week. 24 patch 3 ??? [DISCONTINUED] estradiol 0.1 mg/24 hr Patch Semiweekly APPLY 1 PATCH ONTO THE SKIN TWICE A WEEK 24 patch 3 ??? galantamine (RAZADYNE) 12 mg Tablet 0 ??? memantine (NAMENDA) 5 mg Tablet 0 ??? azelastine (ASTELIN) 137 mcg (0.1 %) Aerosol, [place] instill 1 spray into each nostril twice a day 0 ??? LINZESS 145 mcg Capsule 145 mg every other day. 0 ??? linaclotide (LINZESS) 72 mcg Capsule Take 72 mcg by mouth every other day. ??? SUMAtriptan (IMITREX) 100 mg Tablet as needed for Migraine. 1 ??? levonorgestrel (MIRENA) 20 mcg/24 hr (5 years) IUD 1 each by Intrauterine route once. Lot [id number] ??? hydrocortisone (WESTCORT) 0.2 % Cream Apply topically as needed. ??? cetirizine (ZYRTEC) 10 mg tablet Take 10 mg by mouth daily. ??? multivitamin (THERAGRAN) tablet Take 1 tablet by mouth daily. ??? montelukast (SINGULAIR) 10 mg tablet Take 10 mg by mouth every morning. ??? tacrolimus (PROTOPIC) 0.1 % ointment 1 Appl(s) Top Twice daily Allergies as of 10/20/2019 - Review Complete 10/20/2019 Allergen Reaction Noted ??? Grass pollen-bermuda, standard Other (See Comments) 12/07/2010 ??? Mold extracts Other (See Comments) 03/31/2013 BP 110/67 (BP Location (NBP): Right arm, Patient Position: Sitting) Pulse 65 Temp 36.9 ??C (98.4??F) (Temporal) Ht 172 cm (5' 7.72) Wt 70.1 kg (154 lb 9.6 oz) SpO2 100% BMI 23.70 kg/m?? PHYSICAL EXAM: Thyroid: Smooth, symmetrical Lungs- Clear Heart- HRR Breasts- Without suspicious masses, puckers or D/C Abdomen- Without masses or tenderness Pelvic exam- [] External Genitalia- pink, without lesions Urethral meatus- without masses or lesions Vagina- pink, no abn d/c Cervix- pink, no suspicious lesions, normal d/c, Cervix visualized, IUD string not visualized . Uterus- a/v, without masses, normal size and contour Adenexa- without masses Rectovaginal exam- confirms, good tone, no hemorrhoids A: Unremarkable telephone sales agent exam Probably menopausal spotting with Mirena and estradiol P: FSH pending documented in this encounter Plan of Treatment Upcoming Encounters Date Type Specialty Care Team Description 04/10/2022 Appointment Radiology Luis Michael MD [facility] UROLOGY DEPT. [place], [place] [address] (Wo rk) 04/10/2022 Office Visit Urology Luis Michael MD [facility] UROLOGY DEPT. [place], [place] [address] (Wo rk) 07/13/2022 Appointment Radiology Maile Hinojosa MD [facility] ENDOCRINOLOGY [place], [place] [address] (Wo rk) 07/13/2022 Office Visit Endocrinology Maile Hinojosa MD [facility] ENDOCRINOLOGY [place], [place] [address] (Wo rk) documented as of this encounter Procedures Procedure Name Priority Date/Time Associated Diagnosis Comme nts VENIPUNCTURE Routine 10/20/2019 4:16 PM Menopause Result s for this EST procedure are i n the results section. documented in this encounter Results Follicle Stimulating Hormone (10/20/2019 4:16 PM EST) athologist Signature FSH 40.8 mlU/ML [facility] Comment: Reference Ranges Male: ? 1.5-12. 4 mIU/mL Female ?? Follicular: ?3.5-12.5 m IU/mL ?? Ovulation: ? 4.7-21.5 m IU/mL ?? Luteal: ?1.7-7.7 mIU/mL ?? Postmenopausal: ?25.8-134.8 m IU/mL Specimen Anatomical Collection Method Collection Time Receive d Time (Source) Location / / Volume Laterality Blood specimen 10/20/2019 4:16 PM 020 4:29 (specimen) EST PM EST Resulting Agency Comment Spec In Lab Ida oRn APRN CHEMISTRY ORDERABLES Performing Organization Address City/State/Z[place] [address] documented in this encounter Visit Diagnoses Diagnosis Menopause Asymptomatic postmenopausal status (age- related) (natural) Encounter for gynecological examination without abnormal finding Routine gynecological examination documented in this encounter Care Teams Wire Setter Relationship Specialty Start Date End Date Janet Davey APRN PCP - General Family Medicine 06/23/18 07/12/20 [address] [place] [address] documented as of this encounter
--- OUTSIDE RECORDS SUMMARY | 2022-03-23 02:26 | XMS_ITS | Encounter Summary ---
:1965 Author Organization [facility] [place] [address] Care Team Providers Name Role Phone Janet Davey Isa GONCALVES Primary Care Provider Encounter Details Date Type Department Care Team Description 12/07/2021 Orders Only Obstetrics and Drea, Lucy arias, Gynecology at [facility] Azalea Hinton MD menopausal [facility] [address] [place] OBSTETRICS & [id number] GYNECOLOGY [phone] [place], [place] [address] (Wo rk) Social History Tobacco [...] MD [facility] UROLOGY DEPT. [place], [place] [address] (Wo rk) 04/10/2022 Office Visit Urology Luis Michael MD [facility] UROLOGY DEPT. [place], [place] [address] (Wo rk) 07/13/2022 Appointment Radiology Maile Hinojosa MD [facility] ENDOCRINOLOGY [place], [place] [address] (Wo rk) 07/13/2022 Office Visit Endocrinology Maile Hinojosa MD [facility] ENDOCRINOLOGY [place], [place] [address] (Wo rk) Scheduled Orders Name Type Priority Associated Diagnoses Order S chedule Lipid Panel (Reflex Lab Routine Hot flashes, menopaus al Expected: 12/07/2021 Direct LDL) (Approximate), Expires: 12/07/2022 documented as of this encounter Visit Diagnoses Diagnosis Hot flashes, menopausal Symptomatic menopausal or female climact [place] documented in this encounter Care Teams Granulator Operator Relationship Specialty Start Date End Date Janet Davey APRN PCP - General Family Medicine 07/13/20 [address] [place] [address] documented as of this encounter
--- OUTSIDE RECORDS SUMMARY | 2022-03-23 02:26 | XMS_ITS | Encounter Summary ---
:1965 Author Organization [facility] [place] [address] Care Team Providers Name Role Phone Edvanessa Janet Vanessa GONCALVES Primary Care Provider Encounter Details Date Type Department Care Team Description 12/15/2020 Orders Only Obstetrics and Saul Das, Endo metrial polyp Gynecology at [facility] [place] [address] [place] [address] [phone] Social History Tobacco Use Types Packs/Day Years [...] 04/10/2022 Appointment Radiology Luis Michael MD [facility] UROLOGY DEPT. [place], [place] [address] (Wo rk) 04/10/2022 Office Visit Urology Luis Michael MD [facility] UROLOGY DEPT. [place], [place] [address] (Wo rk) 07/13/2022 Appointment Radiology Maile Hinojosa MD [facility] ENDOCRINOLOGY [place], [place] [address] (Wo rk) 07/13/2022 Office Visit Endocrinology Maile Hinojosa MD [facility] [address] [place], [place] [address] (Wo rk) documented as of this encounter Results US Transvaginal Non OB [...] who have questions please contact the health career services assistant that requested your imaging first. Electronically signed by: Genie Carrasco MD, [facility] ([phone]), at 2:23 PM Thank you for letting us participate in the care of this patient. If you are a health care [facility] er and have any questions regarding this report, please contact the number below. For patients who have ques tions, please contact the health care professio nal that requested your imaging first. ? Genie Carrasco, Staff Physician Electronically Signed Final Report ?? 02:30 pm Narrative 01/09/2021 2:30 PM EDT Gynecological Report ?(Signed Final 01/09/2021 02:30 pm) PATIENT INFO: ID #: ? [id number] ?: ??[birth year] (55 yrs)(F) Name: ? JESSICA Charles GTZ ?Visit Date: 01/09/2021 01:51 pm PERFORMED BY: Performed By: ? Keya Hedrick RDMS Attending: ?Luna GILL, Genie Dumont Referred By: ?SAUL Eddy Location: ? [place] SERVICE(S) PROVIDED: UTV - Transvaginal - [id number] ?[id number] U3D - ??3D rendering with interpretatio n - [id number] ? [id number] INDICATIONS: ? polyp TECHNIQUE/SCAN QUALITY: Technique: ?Transducer [...] Vol (ml): ?1.9 Morphology: ?Normal appearance Procedure Genie Charles MD - 01/09/2021Formatt ing of this note might be different from the original. Gynecological Report (Signed Final 12/24 02:30 pm) PATIENT INFO: ID #: [id number] : [birth year] (55 y rs)(F) Name: JESSICA GTZ Visit Date: 01/09 01:51 pm PERFORMED BY: Performed By: Chetna Hedrick RDMS Attending: Genie Carrasco MD Referred By: SAUL DAS Location: [place] SERVICE(S) PROVIDED: UTV - Transvaginal - [id number] U3D - 3D rendering with interpretation - [id number] INDICATIONS: ? polyp TECHNIQUE/SCAN QUALITY: Technique: Transducer [...] who have questions please contact the health career services assistant that requested your imaging first. Electronically signed by: Genie Carrasco MD, [facility] ([phone]), at 2:23 PM Thank you for letting us participate in the care of this patient. If you are a health care provid er and have any questions regarding this report, please contact the number below. For patients who have ques tions, please contact the health care professio nal that requested your imaging first. Genie Carrasco, Staff Physician Electronically Signed Final Report 01/09 02:30 pm Saul Das CNAntoinette IMG US PELVIC ORDERABLES documented in this encounter Visit Diagnoses Diagnosis Endometrial polyp Polyp of corpus uteri Endometrial polyp Polyp of corpus uteri documented in this encounter Care Teams [facility] Counselor Relationship Specialty Start Date End Date Janet Davey APRN PCP - General Family Medicine 07/13/20 [address] [place] [address] documented as of this encounter
--- OUTSIDE RECORDS SUMMARY | 2022-03-23 02:26 | XMS_ITS | Encounter Summary ---
:1965 Author Organization [facility] [place] [address] Care Team Providers Name Role Phone Janet Davey APRN Primary Care Provider Reason for Visit Consultation (Routine) - Specialty Diagnoses / Procedures Referred By Contact Refer red To Contact Dermatology Diagnoses Follicular disorder, unspecified Folliculitis presumed Fungal Janet Davey APRN Hammer, Charles J, MD Procedures Consult [address] [place] [address] [place] [address] Phone: Fax: Referral ID Status Reason Start Date Expiration Date Visits V isits Requested Authorized [id number] Consult, Test 12/28/2019 06/29/2020 6 6 & Treat PCP Updated and/or Approved Encounter Details Date Type Department Care Team Description 01/04/2020 TH Visit Dermatology at [facility] Keratos is pilaris (TeleHealth) Yarelis GILL [address] [facility] Medhat B DERMATOLOGY [place], [place] [id number] [phone] Social History Tobacco Use Types Packs/Day Years Used Date Never Smoker Smokeless Tobacco: Never Used Alcohol Use Standard Drinks/Week Comments No 0 (1 standard drink = 0.6 oz pure alcoho l) Sex Assigned at Date Recorded Female 01/29/2022 12:45 PM EDT documented as of this encounter Progress Notes Chang Patel MD - 01/04/2020 10:30 AM EDT Problem: 1. New patient, initial visit, for itchy rash on the legs 2. telehealth telephone visit Stacy is a 54-year-old woman who is seen in consultation today by Janet Davey for an itchy rash on her legs. This has been treated with selenium sulfide shampoo and itraconazole 100 mg a day for a short2-week course without significant improvement. She states this is been going on much of the winter. She is advised to stop shaving her legs using Dial soap which she did for a month but there was no improvement. Her who apparently is sick with cancer has no similar rash on his legs but has a an intertrigo rash in his groin which I saw him for and treat him for with some success. 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 She washes her clothes with fragranced Tide pods. She does use fabric softeners and dryer sheets when these are fragrance free she states. . She is allergies to environmental things trees and to certain strong fragrances. Assessment and plan: Pruritic lower extremity dermatitis now with some spread to her arms she states 1. Photographs submitted unfortunately did not help with diagnosis 2. Suggest that I see her in the office for potential punch biopsy; we will schedule this afternoon Addendum: Patient seen at 4:30 PM today after this 1030 morning visit. Note is made of keratosis pilaris of legs lateral arms thighs. Do not see evidence of folliculitis. Patient has history of atopy with past history of eczema, asthma, environmental allergies. Counseled use of bland emollients such as CeraVe cream to help with these areas such as CeraVe cream, and consider the use of AmLactin cream as a mild keratolytic to remove some of them. Discussed sensitive skin care precautions use of fragrance free products. Patient otherwise reassured about the benign nature of this condition CC: Janet Davey APRN documented in this encounter Plan of Treatment Upcoming Encounters Date Type Specialty Care Team Description 04/10/2022 Appointment Radiology Luis Michael MD [facility] UROLOGY DEPT. [place], [place] [address] (Wo rk) 04/10/2022 Office Visit Urology Luis Michael MD [facility] [place], [place] [address] (Wo rk) 07/13/2022 Appointment Radiology Maile Hinojosa MD [facility] ENDOCRINOLOGY [place], [place] [address] (Wo rk) 07/13/2022 Office Visit Endocrinology Maile Hinojosa MD [facility] ENDOCRINOLOGY [place], [place] [address] (Wo rk) documented as of this encounter Visit Diagnoses Diagnosis Keratosis pilaris Other specified congenital anomaly of sk in documented in this encounter Care Teams Environmental Compliance Engineer Relationship Specialty Start Date End Date Janet Davey APRN PCP - General Family Medicine 06/23/18 07/12/20 [address] [place] [address] documented as of this encounter
--- OUTSIDE RECORDS SUMMARY | 2022-03-23 02:26 | XMS_ITS | Encounter Summary ---
:1965 Author Organization [facility] [place] [address] Care Team Providers Name Role Phone Janet Davey Isa GONCALVES Primary Care Provider Encounter Details Date Type Department Care Team Description 07/12/2020 Orders Only Endocrinology at [facility] Cuate Pearl MD Osteoporosis, [facility] DR osteoporosis type, [place] [address] ENDOCRINOLOGY unspecified [phone] [place], [place] [address] pathological fracture [phone] presence (Work) Social History Tobacco Use Types [...] Radiology Luis Michael MD [facility] UROLOGY DEPT. [place], [place] [address] (Wo rk) 04/10/2022 Office Visit Urology Luis Michael MD [facility] UROLOGY DEPT. [place], [place] [address] (Wo rk) 07/13/2022 Appointment Radiology Maile Hinojosa MD [facility] ENDOCRINOLOGY [place], [place] [address] (Wo rk) 07/13/2022 Office Visit Endocrinology Maile Hinojosa MD [facility] ENDOCRINOLOGY [place], [place] [address] (Wo rk) documented as of this encounter Visit Diagnoses Diagnosis Osteoporosis, unspecified osteoporosis t ype, unspecified pathological fracture presence documented in this encounter Care Teams Crystalizer Relationship Specialty Start Date End Date Janet Davey, CASTING TECHNICIAN PCP - General Family Medicine 06/23/18 07/12/20 [address] [place] [address] documented as of this encounter
--- OUTSIDE RECORDS SUMMARY | 2022-03-23 02:26 | XMS_ITS | Encounter Summary ---
:1965 Author Organization [facility] [place] [address] Care Team Providers Name Role Phone EdJanet mendez Isa GONCALVES Primary Care Provider Encounter Details Date Type Department Care Team Description 11/02/2021 Travel Social History Tobacco Use Types Packs/Day Years Used Date Never Smoker Smokeless Tobacco: Never Used Alcohol Use Standard Drinks/Week Comments No 0 (1 standard drink = 0.6 oz pure alcoho l) Sex Assigned at Date Recorded Female 01/29/2022 12:45 PM EDT documented as of this encounter Plan of Treatment Upcoming Encounters Date Type Specialty Care Team Description 04/10/2022 Appointment Radiology Luis Michael MD [facility] UROLOGY DEPT. [place], [place] [address] (Rahul ascencio) 04/10/2022 Office Visit Urology Luis Michael MD [facility] UROLOGY DEPT. [place], [place] [address] (Rahul rk) 07/13/2022 Appointment Radiology Maile Hinojosa MD [facility] [place] [address] (Rahul ascencio) 07/13/2022 Office Visit Endocrinology Maile Hinojosa MD [facility] ENDOCR[facility]OLOGY [place], [place] [address] (Wo rk) documented as of this encounter Visit Diagnoses Not on filedocumented in this encounter Care Teams Frozen Food Selector Relationship Specialty Start Date End Date Janet Davey APRN PCP - General Family Medicine 07/13/20 [address] [place] [address] documented as of this encounter
--- OUTSIDE RECORDS SUMMARY | 2022-03-23 02:26 | XMS_ITS | Encounter Summary ---
:1965 Author Organization [facility] [place] [address] Care Team Providers Name Role Phone EdJanet mendez Isa GONCALVES Primary Care Provider Reason for Referral Diagnostic Test (Routine) - Authorized Specialty Diagnoses / Procedures Referred By Contact Refer red To Contact Radiology Diagnoses Osteoporosis, unspecified osteoporosis type, unspecified pathological fracture presence Maile Hinojosa MD [facility] Rad Xray Procedures DXA Central Spine, Hip, and/or Whole Body (Generic) [facility] [address] [place] [address] [place] [address] Referral ID Status Reason Start Expiration Visits Visits Date Date Requested Authorized [id number] Authorized Specialty 12/08/2022 1 1 Service 1 Requested Encounter Details Date Type Department Care Team Description 06/09/2021 Office Visit Endocrinology at [facility] Maile Mccurdy, Osteoporosis, [facility] [address] [facility] MEDICAL osteoporosis type, [place] [address] [address]ENTER unspecyoselyn [phone] ENDOCRINOLOGY pathological fracture [place], [place] [address] presence Social History Tobacco Use Types Packs/Day Years Used Date Never Smoker Smokeless Tobacco: Never Used Alcohol Use Standard Drinks/Week Comments No 0 (1 standard drink = 0.6 oz pure alcoho l) Sex Assigned at Date Recorded Female 01/29/2022 12:45 PM EDT documented as of this encounter Last Filed Vital Signs Vital Sign Reading Time Taken Comments Blood Pressure 125/72 06/09/2021 3:57 PM EDT Pulse 70 06/09/2021 3:57 PM EDT Temperature 36.2 ??C (97.1 ??F) 06/09/2021 3:57 PM EDT Respiratory Rate - - Oxygen Saturation 100% 06/09/2021 3:57 PM EDT Inhaled Oxygen Concentration - - Weight 69.9 kg (154 lb 1.6 oz) 06/09/2021 3:57 PM EDT Height 172.7 cm (5' 8) 06/09/2021 3:57 PM EDT Body Mass Index 23.43 06/09/2021 3:57 PM EDT documented in this encounter Progress Notes Maile Hinojosa MD - 06/09/2021 4:00 PM EDT Date of Visit: 06/09/2021 Patient Name: Stacy Albright : 1965 PCP: Janet Davey APRN 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 She was previously seen by 06/2020. She has had 3 episodes of kidney stones, does not remember when was a last one, in pathology I see one in 2009. Has been on ERT for a long time, and tells me that her new PLASTERER STUCCO wants to decrease or stop it. She tells me has been on prednisone for two sheldon, 3-4 month for asthma. Her last BMD by [facility] DXA done on 06/2020 LS - 0.7 SD LFN -2.7 SD LH -2.2 SD on T score Other risk factors for fracture/osteoporosis are: [] Yes [x] No Smoking, if yes, how long [] Yes [x] No Drinking alcohol. If yes, how much [x] Yes [] No Exercise If yes how long and what kind of exercise, 5 days a week 30-50min [] Yes [x] No Stomach or bowel surgery. If yes, When and what kind [] Yes [x] No Loose bowel movements. If yes, how frequently and how long [x] Yes [] No Loss of height 1 [x] Yes [] No History of kidney stones? If yes, when and how many episodes? [] Yes [x] No Kidney or liver problems? If yes, what kind and how long? Average time spent outside in direct sun a day [] 0-5 min [] 5-10 min [] 11-15 min [] 16-20 min [] 21-25 min [] 26-30 min [x] >30 min For women: Start of menstrual cycle 13 End of menstrual cycle on ERT now Daily calcium intake: [] 0-100 mg [] 101-200 mg [] 201-300 mg [] 301-400 mg [] 401-500 mg [x] 501-600 mg from food, does not take Ca suppl [] 601-700 mg [] 701-900 mg [] 901-1100 mg [] 5842-5845 mg [] 3675-4920 mg [] Above 1500 mg Medications: Current Outpatient Medications on File Prior to Visit Medication Sig Dispense Refill ??? calcium carbonate/vitamin D3 (VITAMIN D-3 ORAL) Take by mouth daily. ??? b complex vitamins Capsule Take 1 capsule by mouth daily. ??? MAGNESIUM ORAL Take by mouth. 2 caps QD ??? UNABLE TO FIND daily. MELAEUCA .. multi vit with minerals ??? estradioL 0.1 mg/24 hr Patch Semiweekly APPLY 1 PATCH ONTO THE SKIN TWICE A WEEK 24 patch 3 ??? ibuprofen (Advil;Motrin) 800 mg Tablet TK 1 T PO TID PRN ??? galantamine (RAZADYNE) 12 mg Tablet 12 mg 2 times daily. 0 ??? memantine (NAMENDA) 5 mg Tablet 5 mg 2 times daily. 0 ??? azelastine (ASTELIN) 137 mcg (0.1 %) Aerosol, [place] instill 1 spray into each nostril twice a day 0 ??? LINZESS 145 mcg Capsule 145 mg as needed. 0 ??? SUMAtriptan (IMITREX) 100 mg Tablet as needed for Migraine. 1 ??? hydrocortisone (WESTCORT) 0.2 % Cream Apply topically as needed. ??? cetirizine (ZYRTEC) 10 mg tablet Take 10 mg by mouth daily. ??? multivitamin (THERAGRAN) tablet Take 1 tablet by mouth daily. ??? albuterol (ACCUNEB) 0.63 mg/3 mL nebulizer solution ??? oxyCODONE (Roxicodone) 5 mg Tablet TK 1 T PO Q 6 H PRN ??? promethazine (Phenergan) 25 mg Tablet ??? acyclovir (ZOVIRAX) 200 mg Capsule TK 1 C PO FID FOR 5 DAYS ??? cyclobenzaprine (Flexeril) 5 mg Tablet TK 1 T PO TID PRN ??? lidocaine (LIDODERM) 5 % Adhesive Patch, Medicated APPLY 1 PATCH TO SHOULDER ONCE DAILY PRF PAIN ??? valACYclovir (Valtrex) 500 mg Tablet TAKE 2 TABLETS BY MOUTH THREE TIMES DAILY NEEDED ??? linaclotide (LINZESS) 72 mcg Capsule Take 72 mcg by mouth. One time per week ??? montelukast (SINGULAIR) 10 mg tablet Take 10 mg by mouth every morning. ??? tacrolimus (PROTOPIC) 0.1 % ointment 1 Appl(s) Top Twice daily (Patient not taking: Reported on 06/09/2021) ??? KETOCONAZOLE (NIZORAL TOP) (Patient not taking: Reported on 01/09/2021) Current Facility-Administered Medications on File Prior to Visit Medication Dose Route Frequency Provider Last Rate Last Admin ??? ibuprofen (Advil;Motrin) tablet 800 mg 800 mg Oral Q6H PRN Cece Graham CNM [x] Yes [] No Glucocorticoid dose. When first prescribed? [] Yes [x] No Cyclosporine dose. When first prescribed? [] Yes [x] No Phenobarbital and phenytoin. When first prescribed? [] Yes [x] No Rosiglitazone, pioglitazone. When first prescribed? [] Yes [x] No PPI. When first prescribed? [] Yes [x] No SSRI. When first prescribed? [] Yes [x] No Thiaizdes, loop diuretics. When first prescribed? [x] Yes [] No Estrogens, testosterone. When first prescribed? [] Yes [x] No Calcitonin. When first prescribed? [] Yes [x] No Aromatase inhibitors (breast CA). When first prescribed? [] Yes [x] No Androgen deprivation therapy (prostate CA). When first prescribed? [] Yes [x] No Alendronate, risedronate, ibandronate. When first prescribed? PMH: Patient Active Problem List Diagnosis Code ??? Asthma J45.909 ??? Nephrolithiasis N20.0 ??? Raynaud's disease I73.00 ??? Migraines G43.909 ??? Perimenopause N95.1 ??? Pap smear for cervical cancer screening Z12.4 Allergy: Allergies Allergen Reactions ??? Grass Pollen-[place], Standard Other (See Comments) Runny nose, itching, sneezing ??? Mold Extracts Other (See Comments) Sneezing and runny nose Family History Problem Relation Age of Onset ??? Osteoporosis Mother ??? Depression Mother ??? Breast Cancer Paternal Grandmother 45 ??? Cancer Maternal Aunt lymph node CA ??? Depression Father ??? Colorectal Cancer Neg Hx ??? Ovarian Cancer Neg Hx Hip fracture in parents: no Osteopenia/Osteoporosis: mom yes Hyperthyroidism/Hyperparathyrodism: no Social History: Social History Socioeconomic History ??? Marital status: [...] Partners: Male control/protection: Surgical Comment: vasectomy/04/2016 Mirena Other Topics Concern ??? Not on file Social History Narrative with 3 children. Lives in [place], [place]. 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 Eats relatively healthy with fruits, vegetables, yogurt, and milk; minimal meat. Eats 3 meals per day, does not drink tea or coffee, and occasionally drinks soda.Her youngest is 19 yrs old, in college in [place]. The other two are out of the house. She is very involved with her sons family that has lots of psycho social issues, her sons is bipolar, back issue, they have one child together, she had 3 in a previous relationship. She has not gone for counseling. Social Determinants of Health Financial Resource Strain: ??? Difficulty of Paying Living Expenses: Not on file Food Insecurity: ??? Worried About Running Out of Food in the Last Year: Not on file ??? Ran Out of Food in the Last Year: Not on file Transportation Needs: ??? Lack of Transportation (Medical): Not on file ??? Lack of Transportation (Non-Medical): Not on file Physical Activity: ??? Days of Exercise per Week: Not on file ??? Minutes of Exercise per Session: Not on file Housing Stability: ??? Unable to Pay for Housing in the Last Year: Not on file ??? Number of Places Lived in the Last Year: Not on file ??? Unstable Housing in the Last Year: Not on file Physical Examination: BP 125/72 Pulse 70 Temp 36.2 ??C (97.1 ??F) Ht 172.7 cm (5' 8) Wt 69.9 kg (154 lb 1.6 oz) SpO2 100% BMI 23.43 kg/m?? Spine: without kyphosis, without pain on palpation. Patient able to stand up without assistance Skin: no ponce face, acne, supraclavicular fat pads, purple striae Appearance: well hydrated, well nourished, oriented x 3, in nad. Labs 06/2020 25-D 42, PTH 40, Es 135, FSH elevated, ca 9.1 Assessment and Plan 1. Osteoporosis/ hx of kidney stones Mrs Stacy Albright has osteoporosis and kidney stones. In pathology lab from 2009 does not say what type of stone but she remembered that it was Ca oxalate. Was told not to take extra Ca, yet studies show that folks with low Ca intake make more Caox stonesthan those with adequate intake. A. As patient's Ca intake is 500-600 mg from food, and will get 24h urine stone profile to see if weneed to improve her citrate, reduce Ca etc. B. Patient also doeshave Vitamin D goal, 30 ng/ml and above. Will continue vit D. C. Will order BMD by DXA 06/2022, she wants to continue ERT and for bones it would be helpful and reduce fracture risk. Dose of ERT can be reduced and it still will help her bones. D. I will get CTX, how high that is as studies show FSH stimulates bone resorption by it self. If patient and OBGYN dc ERT, would start alendronate 70 mg Q week. E. I will schedule patient for outpatient visit at 12 month. Thank you for allowing me to participate in the care of this very pleasant patient. I spend 40min in chart review, DXA, labs, pathology reports of stones, discussing osteoporosis and writing my note. Sincerely, Maile Hinojosa MD Professor documented in this encounter Plan of Treatment Upcoming Encounters Date Type Specialty Care Team Description 04/10/2022 Appointment Radiology Luis Michael MD [facility] UROLOGY DEPT. [place], [place] [address] (Wo rk) 04/10/2022 Office Visit Urology Luis Michael MD [facility] UROLOGY DEPT. [place], [place] [address] (Wo rk) 07/13/2022 Appointment Radiology Maile Hinojosa MD [facility] ENDOCRINOLOGY [place], [place] [address] (Wo rk) 07/13/2022 Office Visit Endocrinology Maile Hinojosa MD [facility] ENDOCRINOLOGY [place], [place] [address] (Wo rk) Scheduled Orders Name Type Priority Associated Diagnoses Order S chedule DXA Central Spine, Imaging Routine Osteoporosis, unspecif ied Expected: 06/09/2022, Hip, and/or Whole osteoporosis type, Expi res: 12/08/2022 Body (Generic) unspecified pathological fracture presence documented as of this encounter Procedures Procedure Name Priority Date/Time Associated Diagnosis Comme nts HC PARATHYROID Routine 06/09/2021 4:57 PM Osteoporosis, Result s for this HORMONE(PTH INTACT EDT unspecified procedure are in osteoporosis type, the resul ts unspecified section. pathological fracture presence HC PCH COLLAGEN TYPE Routine 06/09/2021 4:57 PM Osteoporosis, Results for this 1 C-TELOPEPTIDE (CTX) EDT unspecified proced ure are in osteoporosis type, the resul ts unspecified section. pathological fracture presence HC VENIPUNCTURE Routine 06/09/2021 4:57 PM Osteoporosis, Resul ts for this EDT unspecified procedure are i n osteoporosis type, the resul ts unspecified section. pathological fracture presence documented in this encounter Results Calcium (06/09/2021 4:57 PM EDT) athologist Signature Calcium 9.0 8.5 - 10.5 ALBERT [place] mg/dL [facility] Specimen Anatomical Collection Method Collection Time Receive d Time (Source) Location / / Volume Laterality Blood 06/09/2021 4:57 PM 1 5:05 EDT PM EDT Resulting Agency Comment Spec In Lab Maile Hinojosa MD CHEMISTRY ORDERABLES Performing Organization Address City/[facility]/[place] [address] PTH (06/09/2021 4:57 PM EDT) athologist Signature PTH 59 15 - 65 ALBERT [place] pg/mL [facility] Specimen Anatomical Collection Method Collection Time Receive d Time (Source) Location / / Volume Laterality Blood 06/09/2021 4:57 PM 1 5:05 EDT PM EDT Resulting Agency Comment Spec In Lab Maile Hinojosa MD CHEMISTRY ORDERABLES Performing Organization Address City/[facility] [place] [address] Collagen Type I C-Telopeptide (06/09/2021 4:57 PM EDT) athologist Signature CTX 283 pg/mL [facility] Comment: ?Unable to flag abnormal result(s), please refer ?to reference range(s) below: Reference Range, Females: ?<5 years: Not Established ? 5-9 years: 574-1849 pg/mL ? 10- 13 years: 519-2415 pg/mL ? 14- 17 years: 242-1291 pg/mL ? 18- 29 years: 64-640 pg/mL ? 30- 39 years: 60-650 pg/mL ? 40- 49 years: 40-465 pg/mL ? >49 years: Not Established No reference range is provided for postm enopausal women because of the increased rate of bone tu rnover post-menopause. It is recommended that r esults for postmenopausal women be compared to the premenopausal reference range as this will give a bett er indication of their rate of bone loss. For additional information, please refer to https://education.ALENTY.[employer]/f aq/GSI224 (This link is being provided for informa tional/ educational purposes only.) Test Performed by [employer], [employer] [facility], [address] [place], [place] [address] Omar Kate M.D., Ph.D., Director Mobile Tracing Services , [facility] [id number] Specimen Anatomical Collection Method Collection Time Receive d Time (Source) Location / / Volume Laterality Blood 06/09/2021 4:57 PM 1 EDT 12:14 PM EDT Resulting Agency Comment Spec In Lab Maile Hinojosa MD CHEMISTRY ORDERABLES Performing Organization Address City/State/ZIP Code Phon e Number [place] [phone] documented in this encounter Visit Diagnoses Diagnosis Osteoporosis, unspecified osteoporosis t ype, unspecified pathological fracture presence documented in this encounter Care Teams Rubber Washer Relationship Specialty Start Date End Date Janet Davey APRN PCP - General Family Medicine 07/13/20 [address] [place] [address] documented as of this encounter
--- OUTSIDE RECORDS SUMMARY | 2022-03-23 02:26 | XMS_ITS | Encounter Summary ---
:1965 Author Organization [facility] [place] [address] Care Team Providers Name Role Phone Janet Davey Isa GONCALVES Primary Care Provider Reason for Visit Reason Comments Follow-up Encounter Details Date Type Department Care Team Description 01/09/2021 Office Visit Obstetrics and Lucy Shepard imenolena Gynecology at [facility] MD Mary Jane [facility] [address] OBSTETRICS & GYNECOLOGY [phone] [place], [place] [address] (Wo rk) Social History Tobacco Use Types Packs/Day Years Used Date Never Smoker Smokeless Tobacco: Never Used Alcohol Use Standard Drinks/Week Comments No 0 (1 standard drink = 0.6 oz pure alcoho l) Sex Assigned at Date Recorded Female 01/29/2022 12:45 PM EDT documented as of this encounter Last Filed Vital Signs Vital Sign Reading Time Taken Comments Blood Pressure 122/74 01/09/2021 3:34 PM EDT Pulse 61 01/09/2021 3:34 PM EDT Temperature 36.7 ??C (98 ??F) 01/09/2021 3:34 PM EDT Respiratory Rate 16 01/09/2021 3:34 PM EDT Oxygen Saturation 100% 01/09/2021 3:34 PM EDT Inhaled Oxygen Concentration - - Weight 71.9 kg (158 lb 8 oz) 01/09/2021 3:34 PM EDT Height 172.7 cm (5' 8) 01/09/2021 3:34 PM EDT Body Mass Index 24.1 01/09/2021 3:34 PM EDT documented in this encounter Progress Notes Lucy Shepard MD - 01/09/2021 3:40 PM EDT Gynecology Follow-up Office Visit Patient Name: Stacy Albright Date of : 1965 Primary Care Provider: Janet Davey APRN, Date of Visit: 01/09/2021 Referred by: Cece Graham CNM [facility] [place] [address] HPI: Stacy Albright is a 55 y.o.. female with PMH notable for osteoporosis, asthma with steroid use, migraines, and hx of nephrolithiasis who presents for follow-up evaluation of her EMB performed in the setting of darlene-vs post-menopausal bleeding, wth pt on Estradiol patch since 2013 with Mirena IUD placed 04/2016 following normal EMB in 2016. Pt endorses hot flashes and persistent monthly hot flashes once per month lasting a few days. She states she remains on estrogen primarily for her 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 Chief Complaint Patient presents with ??? Follow-up Patient Active Problem List Diagnosis Code ??? Asthma J45.909 ??? Nephrolithiasis N20.0 ??? Raynaud's disease I73.00 ??? Migraines G43.909 ??? Perimenopause N95.1 ??? Pap smear for cervical cancer screening Z12.4 OB Hx: OB History 4 Para 3 Term 3 0 AB 1 Living 3 SAB 1 TAB Ectopic Multiple Live Births # Outc Date GA Lbr Joe/2nd Wgt Sex Del Anes PTL Lv 1 Term 2 Term 3 Term 4 SAB Comments: at 3 months OB History 4 Para 3 Term 3 0 AB 1 Living 3 SAB 1 TAB Ectopic Multiple Live Births Patient Active Problem List Diagnosis Code ??? Asthma J45.909 ??? Nephrolithiasis N20.0 ??? Raynaud's disease I73.00 ??? Migraines G43.909 ??? Perimenopause N95.1 ??? Pap smear for cervical cancer screening Z12.4 HRT - Cancer Screening Denies family history of uterine, breast, ovarian, colon, stomach, pancreatic cancers. Past medications, allergies, medical, surgical, family and social history reviewed and up to date HOME MEDS Prior to Admission medications Medication Sig Start Date End Date Taking? Authorizing Provider estradioL 0.1 mg/24 hr Patch Semiweekly APPLY 1 PATCH ONTO THE SKIN TWICE A WEEK 10/23/20 Cece Graham CNM ibuprofen (Advil;Motrin) 800 mg Tablet TK 1 [...] azelastine (ASTELIN) 137 mcg (0.1 %) Aerosol, [place] instill 1 spray into each nostril twice a day 06/17/17 PROVIDER, HISTORICAL LINZESS 145 mcg Capsule 145 mg every other day. 06/21/17 PROVIDER, HISTORICAL linaclotide (LINZESS) 72 mcg Capsule Take 72 mcg by mouth. One time per week PROVIDER, HISTORICAL SUMAtriptan (IMITREX) 100 mg Tablet as needed for Migraine. 04/13/16 PROVIDER, HISTORICAL levonorgestrel (MIRENA) 20 mcg/24 hr (5 years) IUD 1 each by Intrauterine route once. Lot [id number] 05/01/16 05/01/21 PROVIDER, HISTORICAL hydrocortisone (WESTCORT) 0.2 % Cream [...] % ointment 1 Appl(s) Top Twice daily 08/24/10 KETOCONAZOLE (NIZORAL TOP) 08/24/10 Outpatient Medications Marked as Taking for the 01/09/21 encounter (Office Visit) with Lucy Shepard MD Medication Sig Dispense Refill ??? estradioL 0.1 mg/24 hr Patch Semiweekly [...] azelastine (ASTELIN) 137 mcg (0.1 %) Aerosol, [place] instill 1 spray into each nostril twice a day 0 ??? LINZESS 145 mcg Capsule 145 mg as needed. 0 ??? SUMAtriptan (IMITREX) 100 mg Tablet as needed for Migraine. 1 ??? levonorgestrel (MIRENA) 20 mcg/24 hr (5 years) IUD 1 each by Intrauterine route once. Lot [id number] ??? hydrocortisone (WESTCORT) 0.2 % Cream Apply topically as needed. ??? albuterol (ACCUNEB) 0.63 mg/3 mL nebulizer solution ??? tacrolimus (PROTOPIC) 0.1 % ointment 1 Appl(s) Top Twice daily Current Facility-Administered Medications for the 01/09/21 encounter (Office Visit) with Lucy Shepard MD Medication Dose Route Frequency Provider Last Rate Last Admin ??? ibuprofen (Advil;Motrin) tablet 800 mg 800 mg Oral Q6H PRN Cece Graham CNM ALLERGIES Allergies Allergen Reactions ??? Grass Pollen-[place], Standard Other (See Comments) Runny nose, itching, sneezing ??? Mold Extracts Other (See Comments) Sneezing and runny nose MEDICAL HISTORY Past Medical History: Diagnosis Date ??? Abnormal glandular Papanicolaou smear of cervix age 15 ??? Asthma ??? Gastric acidity possible ulcer ??? History of nephrolithiasis ??? Memory difficulties 2018 ??? Migraines ??? Osteoporosis ??? Raynaud's disease ??? Shoulder pain R frozen shoulder and rotator cuff repair SURGICAL HISTORY Past Surgical History: Procedure Laterality Date ??? CREATED BY [employer]) Procedure Date: 01/16/2008 ??? KNEE SURGERY 03/01/14 Right knee; patella surgery ??? LITHOTRIPSY ? ? PRO CYSTOURETHROSCOPY, FULGUR <.5CM GISELA N/A 04/18/2017 CYSTO, FULGURATION\BLADDER LESION\W\WO BX\LESS THAN 0.5CM (WRVU 4.05) performed by Luis Michael Jr., MD at [facility] MAIN OR ??? SHOULDER SURGERY Right 07/2019 FAMILY HISTORY family history includes Breast Cancer (age of onset: 45) in her paternal grandmother; Cancer in her maternal aunt; Depression in her father and mother; Osteoporosis in her mother. SOCIAL HISTORY Social History Socioeconomic History ??? [...] History Narrative with 3 children. Lives in [place], [place]. 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 Eats relatively healthy with fruits, vegetables, yogurt, and milk; minimal meat. Eats 3 meals per day, does not drink tea or coffee, and occasionally drinks soda.Her youngest is 19 yrs old, in college in [place]. The other two are out of the house. She is very involved with her sons family that has lots of psycho social issues, her sons is bipolar, back issue, they have one child together, she had 3 in a previous relationship. She has not gone for counseling. Social Determinants of Health Financial Resource Strain: ??? Difficulty of Paying Living Expenses: Food Insecurity: ??? Worried About Running Out of Food in the Last Year: ??? Ran Out of Food in the Last Year: Transportation Needs: ??? Lack of Transportation (Medical): ??? Lack of Transportation (Non-Medical): Physical Activity: ??? Days of Exercise per Week: ??? Minutes of Exercise per Session: OBJECTIVE: Patient Vitals for the past 24 hrs: Temp Pulse Resp BP SpO2 01/09/21 1534 36.7 ??C (98 ??F) 61 16 122/74 100 % Wt Readings from Last 3 Encounters: 01/09/21 71.9 kg (158 lb 8 oz) 12/09/20 71.8 kg (158 lb 4.8 oz) 10/21/20 70.7 kg (155 lb 14.4 oz) Body mass index is 24.1 kg/m??. Physical Examination Gen: well appearing female in no acute distress Neuro: clear, fluent, logical speech. Ambulates without difficulty. CN grossly intact. Psychiatric: She has a normal mood and affect. Her behavior is normal. Thought content normal. Lab/Radiology Results: Pathology No results found for this or any previous visit (from the past 24 hour(s)). Results for orders placed or performed in visit on 12/09/20 Surgical Pathology Report Result Value Ref Range Surgical Pathology Report [id number] Location: 5L The signing pathologist has (i) examined the relevant preparation(s) for the specimen(s) and (ii) rendered or confirmed the diagnosis(es). . Surgical Pathology DIAGNOSIS Endometrial biopsy: 1. Fragments of benign endometrium intermixed with blood clot and cervical mucus. 2. Endometrial tissue fragments with features suggestive of an endometrial polyp. 3. No evidence of hyperplasia or endometritis. Electronically signed by: Sydney Hawk DO Verified: 12/14/2020 11:13 Pathologist Performed at: -[facility] Dept. of Pathology, [place], [place] SPECIMEN(S) SUBMITTED a - endometrium, biopsy CLINICAL INFORMATION TIGIST Pap SPECIMEN PROCESSING A - Labeled/Fixative: Patient demographics, formalin. Quantity/Size: Fragments, collectively 1.0 x 0.6 cm. Tissue Description: Red-brown hemorrhagic tissue and abundant g lobular mucus. Sections/Processing: Submitted en toto in 1 cassette labeled A1. MLL DEXA 07/07/2020 - T score -2.7 Imaging TVUS 01/09/2021 ------- UTERUS: ------- Uterus: Visualized Position: Anteverted Size (cm) L: 7.1 W: 4.9 H: 4.0 ?? ENDOMETRIUM: Endometrium: Normal where seen Thickness(mm): 2.82 ?? Comment: 3D rendering with interpretation was performed for IUD placement. IUD seen in normal position within the endometrial cavity. Limited evaluation of endometrium due to IUD within. ?? ------- CERVIX: ------- Normal appearance. ?? CUL-DE-SAC: No fluid is visualized. ?? RIGHT OVARY: Status: Visualized Size (cm) L: 2.3 W: 1.3 H: 1.4 Vol (ml): 2.2 Morphology: Normal appearance ?? LEFT OVARY: Status: Visualized Size (cm) L: 2.2 W: 1.4 H: 1.2 Vol (ml): 1.9 Morphology: Normal appearance ?? IMPRESSION ?? 1. IUD in appropriate position within the endometrial cavity. Where visualized, the endometrium appears normal, evaluation limited by the presence of the IUD. 2. Normal ovaries. Assessment/Plan: Stacy Albright is a 55 y.o. female with PMH notable for osteoporosis, asthma with steroid use, migraines, and hx of nephrolithiasis here for follow-up evaluation of her EMB performed in the setting of darlene-vs post-menopausal bleeding, wth pt on Estradiol patch since 2013 with Mirena IUD placed 04/2016 following normal EMB in 2015. Reviewed ultrasound from today, 01/09, showing thin endometrial stripe with IUD in apparent correct position and normal appearing ovaries. However, discussed cannot see everything on ultrasound and concern for persistent monthly vaginal bleeding at 55 yo. Reviewed recommendation to stop HRT, and reviewed below data with pt: Combined estrogen-progestin therapy - Number of cases (additional or fewer) per 1000 women per five years of hormone use when compared with placebo: ???Coronary heart disease (CHD) - 2.5 additional cases ???Invasive breast cancer - 3 additional cases ???Stroke - 2.5 additional cases ???Pulmonary embolism - 3 additional cases ???Colorectal cancer - 0.5 fewer cases ???Endometrial cancer - No difference ???Hip fracture - 1.5 fewer cases ???All-cause mortality - 5 fewer events Pt expressed concern with bone health if she stopped HRT, and given DEXA scan with T score -2.7 and pt following with endocrinology, recommend office visit with poly packer and heat sealer to discuss stopping HRT in the setting of persistent postmenopausal bleeding. If we did discontinue HRT, reviewed that we could decrease estrogen strength to taper down. Plan as below: - pt to make appt with endocrinology to discuss stopping HRT in setting of monthly vaginal bleeding - f/u with supervisor uranium processing in 3 mo after endocrinology --> recommendation to taper and then stop HRT Patient plan was formulated with Dr. Nunez, attending woodworking machine operator Lucy Shepard MD PGY1 01/09/2021 Genoveva Nunez MD - 01/09/2021 3:40 PM EDT The case was discussed at the time of the visit. The assessment and plan were formulated in discussion with me and I agree with them as documented. I have reviewed the history, physical exam, assessment and plan with Dr. Shepard. Genoveva Nunez MD documented in this encounter Plan of Treatment Upcoming Encounters Date Type Specialty Care Team Description 04/10/2022 Appointment Radiology Luis Michael MD [facility] UROLOGY [place], [place] [address] (Wo rk) 04/10/2022 Office Visit Urology Luis Michael MD [facility] UROLOGY [place], [place] [address] (Wo rk) 07/13/2022 Appointment Radiology Maile Hinojosa MD [facility] ENDOCRINOLOGY [place], [place] [address] (Wo rk) 07/13/2022 Office Visit Endocrinology Maile Hinojosa MD [facility] ENDOCRINOLOGY [place], [place] [address] (Wo rk) documented as of this encounter Visit Diagnoses Diagnosis Perimenopause Symptomatic menopausal or female climact wendy states documented in this encounter Care Teams Offset Assistant Press Operator Relationship Specialty Start Date End Date Janet Davey APRN PCP - General Family Medicine 07/13/20 [address] [place] [address] documented as of this encounter
--- OUTSIDE RECORDS SUMMARY | 2022-03-23 02:26 | XMS_ITS | Encounter Summary ---
:1965 Author Organization [facility] [place] [address] Care Team Providers Name Role Phone Petar Janet Moss APRN Primary Care Provider Encounter Details Date Type Department Care Team Description 11/07/2020 Telephone Obstetrics and Gynecology [place] [address] [place] [address] [phone] Social History Tobacco Use Types Packs/Day Years Used Date Never Smoker Smokeless Tobacco: Never Used Alcohol Use Standard Drinks/Week Comments No 0 (1 standard drink = 0.6 oz pure alcoho l) Sex Assigned at Date Recorded Female 01/29/2022 12:45 PM EDT documented as of this encounter Miscellaneous Notes Telephone Encounter - Cece Graham CNM - 11/07/2020 12:42 PM EDT Spoke with Stacy on the phone about her pap results TIGIST- recommend endomtrial bx which she agrees to. Will plan to schedule. Cece Graham CNM documented in this encounter Plan of Treatment Upcoming Encounters Date Type Specialty Care Team Description 04/10/2022 Appointment Radiology Luis Michael MD [facility] UROLOGY DEPT. [place], [place] [address] (Wo rk) 04/10/2022 Office Visit Urology Luis Michael MD [facility] UROLOGY DEPT. [place], [place] [address] (Wo rk) 07/13/2022 Appointment Radiology Maile Hinojosa MD [facility] ENDOCRINOLOGY [place], [place] [address] (Wo rk) 07/13/2022 Office Visit Endocrinology Maile Hinojosa MD [facility] ENDOCRINOLOGY [place], [place] [address] (Wo rk) documented as of this encounter Visit Diagnoses Not on filedocumented in this encounter Care Teams Gear Machine Operator Relationship Specialty Start Date End Date Janet Davey APRN PCP - General Family Medicine 07/13/20 [address] [place] [address] documented as of this encounter
--- OUTSIDE RECORDS SUMMARY | 2022-03-23 02:26 | XMS_ITS | Encounter Summary ---
:1965 Author Organization [facility] [place] [address] Care Team Providers Name Role Phone Petar Janet Isa GONCALVES Primary Care Provider Encounter Details Date Type Department Care Team Description 01/03/2022 Telephone Obstetrics and Gynec ology at [facility] [place] [address] Social History Tobacco Use Types Packs/Day [...] Description 04/10/2022 Appointment Radiology Luis Michael MD [facility] UROLOGY DEPT. [place], [place] [address] (Wo rk) 04/10/2022 Office Visit Urology Luis Michael MD [facility] UROLOGY DEPT. [place], [place] [address] (Wo silva) 07/13/2022 Appointment Radiology Maile Hinojosa MD [facility] ENDOCRINOLOGY [place], [place] [address] (Wo rk) 07/13/2022 Office Visit Endocrinology Maile Hinojosa MD [facility] ENDOCRINOLOGY [place], [place] [address] (Wo rk) documented as of this encounter Visit Diagnoses Not on filedocumented in this encounter Care Teams Subsurface Augmentee Elint Operator Relationship Specialty Start Date End Date Janet Davey APRN PCP - General Family Medicine 07/13/20 [address] [place] [address] documented as of this encounter
--- OUTSIDE RECORDS SUMMARY | 2022-03-23 02:26 | XMS_ITS | Encounter Summary ---
:1965 Author Organization [facility] [place] [address] Care Team Providers Name Role Phone EdJanet mendez Isa GONCALVES Primary Care Provider Encounter Details Date Type Department Care Team Description 06/15/2021 Telephone Obstetrics and Gynecology Paty Shepard, at [facility] [place] [address] OBSTETRICS & GYNECOLOGY [phone] [place], [place] [address] (Wo rk) Social History Tobacco Use Types Packs/Day Years Used Date Never Smoker Smokeless Tobacco: Never Used Alcohol Use Standard Drinks/Week Comments No 0 (1 standard drink = 0.6 oz pure alcoho l) Sex Assigned at Date Recorded Female 01/29/2022 12:45 PM EDT documented as of this encounter Miscellaneous Notes Telephone Encounter - Lucy Shepard MD - 06/15/2021 2:56 PM EDT I returned a phone call from Stacy Albright on 06/15/2021 in regards to her request to continue Estradiol patch prescription for her bone health. Per our recommendations from 01/09/2021 visit, the patient has seen endocrinology. I informed the patient that we have reached out to clarify with her Endocr inologist treatment plan related to her osteoporosis, and that we would like to schedule her for an in-person office visit to discuss next steps. For reference, please see 01/09/2021 note, notable for: darlene-vs post-menopausal bleeding, wth pt on Estradiol patch since 2013 with Mirena IUD placed 04/2016 following normal EMB in 2016. Plan to have pt present for office visit discussed with attending physicians, Dr. Nunez and Dr. Sutton. documented in this encounter Plan of Treatment Upcoming Encounters Date Type Specialty Care Team Description 04/10/2022 Appointment Radiology Luis Michael MD [facility] UROLOGY DEPT. [place], [place] [address] (Wo rk) 04/10/2022 Office Visit Urology Luis Michael MD [facility] UROLOGY DEPT. [place], [place] [address] (Wo rk) 07/13/2022 Appointment Radiology Maile Hinojosa MD [facility] ENDOCRINOLOGY [place], [place] [address] (Wo rk) 07/13/2022 Office Visit Endocrinology Maile Hinojosa MD [facility] ENDOCRINOLOGY [place], [place] [address] (Wo rk) documented as of this encounter Visit Diagnoses Not on filedocumented in this encounter Care Teams Detail Assembler Relationship Specialty Start Date End Date Janet Davey APRN PCP - General Family Medicine 07/13/20 [address] [place] [address] documented as of this encounter
--- OUTSIDE RECORDS SUMMARY | 2022-03-23 02:26 | XMS_ITS | Encounter Summary ---
:1965 Author Organization [place] [address] Care Team Providers Name Role Phone Edvanessa Jaent Vanessa GONCALVES Primary Care Provider Reason for Referral Diagnostic Test (Routine) - Closed Specialty Diagnoses / Procedures Referred By Contact Refer red To Contact Radiology Diagnoses Osteoporosis, unspecified osteoporosis type, unspecified pathological fracture presence Cuate Hall MD [facility] Rad Xray Procedures DXA Central Spine, Hip, and/or Whole Body (Generic) [facility] [address] [place] [facility] [address] [place] [address] [place] [address] Referral ID Status Reason Start Date Expiration Date Visits V isits Requested Authorized [id number] Closed Specialty 03/14/2020 09/14/2021 1 1 Service Requested Reason for Visit Diagnostic Test (Routine) - Closed Specialty Diagnoses / Procedures Referred By Contact Refer red To Contact Radiology Diagnoses Osteoporosis, unspecified osteoporosis type, unspecified pathological fracture presence Cuate Hall MD [facility] Rad Xray Procedures DXA Central Spine, Hip, and/or Whole Body (Generic) [facility] [address] [place] [facility] [place] [address] [place] [address] Referral ID Status Reason Start Date Expiration Date Visits V isits Requested Authorized [id number] Closed Specialty 03/14/2020 09/14/2021 1 1 Service Requested Encounter Details Date Type Department Care Team Description 07/07/2020 Hospital Encounter XRay at [facility] Cuate Hall, Osteoporosis, [address] [place] unspecified [place], [place] [facility] [place], [phone] funes [phone] ENDOCRINOLOGY [place] presence [address] Social History Tobacco Use Types Packs/Day Years [...] (0.1 %) Aerosol, each nostril twice a [place] day SUMAtriptan (IMITREX) as needed for 1 [...] 05/01/2016 05/01/2021 20 mcg/24 hr (5 years) [id number] IUD cetirizine (ZYRTEC) 10 Take 10 mg by mouth 0 02/12/2022 mg tablet daily. tacrolimus (PROTOPIC) 1 Appl(s) Top Twice 0 08/2402/12/2022 0.1 % ointment daily KETOCONAZOLE (NIZORAL Apply topically. 0 08/24/20 10 02/12/2022 TOP) documented as of this encounter Plan of Treatment Upcoming Encounters Date Type Specialty Care Team Description 04/10/2022 Appointment Radiology Luis Michael MD [facility] UROLOGY DEPT. [place], [place] [address] (Wo rk) 04/10/2022 Office Visit Urology Luis Michael MD [facility] UROLOGY DEPT. [place], [place] [address] (Wo rk) 07/13/2022 Appointment Radiology Maile Hinojosa MD [facility] ENDOCRINOLOGY [place], [place] [address] (Wo rk) 07/13/2022 Office Visit Endocrinology Maile Hinojosa MD [facility] ENDOCRIN[facility] [place], [place] [address] (Wo rk) documented as of this encounter Procedures Procedure Name Priority Date/Time Associated Diagnosis Comme nts DXA CENTRAL SPINE, Routine 07/07/2020 1:56 PM Osteoporosis, Re sults for this HIP, AND/OR WHOLE EST unspecified procedure are in BODY (GENERIC) osteoporosis type, the res ults unspecified section. pathological fracture presence documented in this encounter Results DXA Central Spine, Hip, [...] This is available through an interactive web-based Kwest[employer] ce (http://www.[facility].ac.uk/FRAX/) and can be used to estimate a [...] measurements a nd plots are available in ELookBooker under the imaging tab. Paper copies will be sent to providers without E- access. If you have received this report without e data sheet and do not have access to ELookBooker, please contact Radiology [facility] at [phone] Saturday thru Saturday 8am-4pm. Thank you for [...] This is available through an interactive web-based Medabila ce (http://www.shef.ac.uk/FRAX/) and can be used to [...] measurements a nd plots are available in ELookBooker under the imaging tab. Paper copies will be sent to providers without E- access. If you have received this report without e data sheet and do not have access to ELookBooker, please contact Radiology [facility] at [phone] Saturday thru Saturday 8am-4pm. Thank you for letting us participate in the care of this patient. For questions regarding this report, please contact e number below. Cuate Hall MD IMG DEXA ORDERABLES documented in this encounter Visit Diagnoses Diagnosis Osteoporosis, unspecified osteoporosis t ype, unspecified pathological fracture presence documented in this encounter Care Teams Cosmetic Chemist Relationship Specialty Start Date End Date Janet Davey APRN PCP - General Family Medicine 06/23/18 07/12/20 [address] [place] [address] documented as of this encounter
--- OUTSIDE RECORDS SUMMARY | 2022-03-23 02:26 | XMS_ITS | Encounter Summary ---
:1965 Author Organization [place] [address] Care Team Providers Name Role Phone Petar Janet Moss APRN Primary Care Provider Reason for Visit Reason Comments Follow-up Encounter Details Date Type Department Care Team Description 12/09/2020 Office Visit Obstetrics and Cece Graham vaginal Pap Gynecology at [facility], CNM smear [facility] [address] [place] [id number] [phone] Social History Tobacco Use Types Packs/Day Years Used Date Never Smoker Smokeless Tobacco: Never Used Alcohol Use Standard Drinks/Week Comments No 0 (1 standard drink = 0.6 oz pure alcoho l) Sex Assigned at Date Recorded Female 01/29/2022 12:45 PM EDT documented as of this encounter Last Filed Vital Signs Vital Sign Reading Time Taken Comments Blood Pressure 111/69 12/09/2020 3:51 PM EDT Pulse 71 12/09/2020 3:51 PM EDT Temperature 36.9 ??C (98.4 ??F) 12/09/2020 3:51 PM EDT Respiratory Rate 16 12/09/2020 3:51 PM EDT Oxygen Saturation 100% 12/09/2020 3:51 PM EDT Inhaled Oxygen Concentration - - Weight 71.8 kg (158 lb 4.8 oz) 12/09/2020 3:51 PM EDT Height 172.7 cm (5' 8) 12/09/2020 3:51 PM EDT Body Mass Index 24.07 12/09/2020 3:51 PM EDT documented in this encounter Progress Notes Cece Graham CNM - 12/09/2020 4:00 PM EDT CC: Here for EMB Subjective: Here for EMB from TIGIST pap. O: BP 111/69 Pulse 71 Temp 36.9 ??C (98.4 ??F) (Temporal) Resp 16 Ht 172.7 cm (5' 8) Wt 71.8 kg (158 lb 4.8 oz) SpO2 100% BMI 24.07 kg/m?? Procedure: Endometrial Biopsy Indication: Abnormal Uterine Bleeding Following a brief verbal description of the procedure, verbal consent was obtained from the patient. A bimanual exam was performed which revealed an anteverted uterus. Adnexal were non palpable. A speculum was placed without difficulty. The cervix and vagina were prepped with sterile betadine x3. A pi pette was placed through the cervix without difficulty. The uterus sounded to 7 cm. A biopsy was obtained in a 360 degree fashion. The tissue was placed into formalin for pathologic specimen and labeled with her name and date of and sent to pathology for assessment. The patient tolerated the procedure well. The estimated blood loss was minimal. Paint And Table Edger present for procedure. A/P: Stacy is a postmenopausal woman here for EMB due to abnormal pap 10/21/20- DISCUSSION Endometrial cells present in a sample from a woman >/= 45 years old. The finding ??may be associated with benign lesions, hormonal alterations, and, less often, ??endometrial or uterine abnormalities. Consider endometrial evaluation in ??postmenopausal women. Will be in touch with EMB result. Cece Graham CNM documented in this encounter Plan of Treatment Upcoming Encounters Date Type Specialty Care Team Description 04/10/2022 Appointment Radiology Luis Michael MD [facility] UROLOGY DEPT. [place], [place] [address] (Wo rk) 04/10/2022 Office Visit Urology Luis Michael MD [facility] UROLOGY DEPT. [place], [place] 0[address] (Wo rk) 07/13/2022 Appointment Radiology Maile Hinojosa MD [facility] ENDOCRINOLOGY [place], [place] 0375 (Wo rk) 07/13/2022 Office Visit Endocrinology Maile Hinojosa MD [facility] DR MARMOLEJO [place], [place] [address] (Wo rk) documented as of this encounter Procedures Procedure Name Priority Date/Time Associated Diagnosis Comme nts SPECIMEN TO Routine 12/09/2020 4:26 PM Abnormal vaginal Pap R esults for this PATHOLOGY EDT smear procedure are i n the results section. SURGICAL PATHOLOGY Routine 12/09/2020 4:00 PM Res ults for this REPORT EDT procedure are i n the results section. documented in this encounter Results Specimen to Pathology (12/09/2020 4:26 PM EDT) Specimen Anatomical Collection Method Collection Time Receive d Time (Source) Location / / Volume Laterality AP Specimen 12/09/2020 4:26 PM 4:26 EDT PM EDT Narrative [facility] - 12/09/2020 4:26 PM EDT Specimen requisition ordered. ??Separate Pathology report to follow Cece Graham CNM PATHOLOGY/CYTOLOGY ORDERABLE S Performing Organization Address City/State/[place] [address] Surgical Pathology Report (12/09/2020 4:00 PM EDT) Component Value Ref Test Analysis Performed At [facility] Range Method Time Signature Surgical [id number] ? Location: [address] [place] [address] Pathology [place] Report The signing pathologist has (i) examined the relevant preparation(s) for the [facility] specimen(s) and (ii) rendered or confirmed the diagnosis(es) . HOSPITAL LAB[facility]ORY . ?Surgic al Pathology DIAGNOSIS Endometrial biopsy: ?? 1. Fragments of benign endometrium intermixed with ?blood clot and cervical mucus. ?? 2. Endometrial tissue fragments with features suggestive ?of an endometrial polyp. ?? 3. No evidence of hyperplasia or endometritis. Electronically signed by: ?Carine MUÑIZ, Sydney Estrada Verified: ??12/14/2020 11:13 ??Pathologist Performed at: ??-[facility] Dept. of Pathology, [place], [place] SPECIMEN(S) SUBMITTED a - endometrium, biopsy CLINICAL INFORMATION TIGIST Pap SPECIMEN PROCESSING A - Labeled/Fixative: Patient demographics, formalin. Quantity/Size: ??Fragments, collectively 1.0 x 0.6 cm. Tissue Description: Red-brown hemorrhagic tissue and abundant globular mucus. Sections/Processing: Submitted en toto ??in 1 cassette labeled A1. ??MLL Specimen (Source) Anatomical Collection Method Collection Time Re ceived Time Location / / Volume Laterality 12/09/2020 4:00 PM EDT Cece Graham CNM PATHOLOGY/CYTOLOGY ORDERABLE S Performing Organization Address City/State/ZIP Code Phon e Number [place] [address] [facility] documented in this encounter Visit Diagnoses Diagnosis Abnormal vaginal Pap smear Abnormal glandular Papanicolaou smear of vagina documented in this encounter Care Teams Vice President Corporate Communications Relationship Specialty Start Date End Date Janet Davey APRN PCP - General Family Medicine 07/13/20 [address] [place] [address] documented as of this encounter
--- OUTSIDE RECORDS SUMMARY | 2022-03-23 02:27 | XMS_ITS | Encounter Summary ---
:1965 Author Organization [facility] [place] [address] Care Team Providers Name Role Phone Suzie Mcintyre APRN Primary Care Provider Encounter Details Date Type Department Care Team Description 04/25/2017 Telephone [place]rology [place] [facility] [place] Michael Jr., MD [facility] [place] [address] UROLOGY DEPT. [phone] [place], [place] [address] (Wo rk) Social History Tobacco Use Types Packs/Day Years Used Date Never Smoker Smokeless Tobacco: Never Used Alcohol Use Standard Drinks/Week Comments No 0 (1 standard drink = 0.6 oz pure alcoho l) Sex Assigned at Date Recorded Female 01/29/2022 12:45 PM EDT documented as of this encounter Miscellaneous Notes Telephone Encounter - Luis Michael Jr., MD - 04/25/2017 6:17 PM EDT I called to review pathology report, revealed benign urothelium. She is recovering well. documented in this encounter Plan of Treatment Upcoming Encounters Date Type Specialty Care Team Description 04/10/2022 Appointment Radiology Luis Michael MD [facility] UROLOGY DEPT. [place], [place] [address] (Wo rk) 04/10/2022 Office Visit Urology Luis Michael MD [facility] UROLOGY DEPT. [place], [place] [address] (Wo rk) 07/13/2022 Appointment Radiology Maile Hinojosa MD [facility] ENDOCRINOLOGY [place], [place] [address] (Wo rk) 07/13/2022 Office Visit Endocrinology Maile Hinojosa MD [facility] ENDOCRINOLOGY [place], [place] [address] (Wo rk) documented as of this encounter Visit Diagnoses Not on filedocumented in this encounter Care Teams Detonator Maker Relationship Specialty Start Date End Date Suzie Mcintyre APRN PCP - General Family Medicine 02/28/17 06/26/17 documented as of this encounter
--- OUTSIDE RECORDS SUMMARY | 2022-03-23 02:27 | XMS_ITS | Encounter Summary ---
:1965 Author Organization [facility] Address [address] [place] [address] Care Team Providers Name Role Phone Monica Garcia MD Primary Care Provider Reason for Visit Reason Comments Annual Exam Encounter Details Date Type Department Care Team Description 08/02/2016 Office Visit Obstetrics and Ida Ron, Encounter for Gynecology at [facility] SENIOR C SOFTWARE DEVELOPER gynecological [facility] exam[address] abnormal finding [place], [place] OBSTETRICS & [id number] GYNECOLOGY [phone] [place], [place] [address] Social History Tobacco Use Types Packs/Day Years Used Date Never Smoker Smokeless Tobacco: Never Used Alcohol Use Standard Drinks/Week Comments No 0 (1 standard drink = 0.6 oz pure alcoho l) Sex Assigned at Date Recorded Female 01/29/2022 12:45 PM EDT documented as of this encounter Last Filed Vital Signs Vital Sign Reading Time Taken Comments Blood Pressure 122/69 08/02/2016 4:18 PM EST Pulse 69 08/02/2016 4:18 PM EST Temperature 36.5 ??C (97.7 ??F) 08/02/2016 4:18 PM EST Respiratory Rate 16 08/02/2016 4:18 PM EST Oxygen Saturation 100% 08/02/2016 4:18 PM EST Inhaled Oxygen Concentration - - Weight 66 kg (145 lb 9.6 oz) 08/02/2016 4:18 PM EST Height 172.7 cm (5' 8) 08/02/2016 4:18 PM EST Body Mass Index 22.14 08/02/2016 4:18 PM EST documented in this encounter Progress Notes Ida Ron, SENIOR C SOFTWARE DEVELOPER - 08/02/2016 4:20 PM EST Reason for visit: Annual pulper tender exam ROS: 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 She was itching and sore and it did resolve. We put a Mirena IUD in 04/2016 due to AUB. We were trying to treat itwith cyclic HRT which was not working. Prior to all this I did do and EMB which was neg in 08/2015. Since IUD inserted, spotting constantly, mostly panty liner. She con't to use the estrogen patch whichfinds helps tremendously with her moods and significantly lessens her hot flushes. Psych: finds her memory is getting worse; working with her PCP with this. Also with increase hair loss, constipation, Past Medical History Diagnosis Date ??? Abnormal glandular Papanicolaou smear of cervix age 15 ??? Asthma ??? Gastric acidity possible ulcer ??? History of nephrolithiasis ??? Migraines ??? Osteoporosis ??? Raynaud's disease ??? Vaginal infection PID at 15 Past Surgical History Procedure Laterality Date ??? Created by [email or web address]) Procedure Date: 01/16/2008 ??? Lithotripsy ??? Knee surgery 03/01/14 Right knee; patella surgery RENTAL AGENT History: Pt is a 50 year old G 4 P 3 female. Last pap 04/2016 WNL, neg HPV; hx abnormal pap at age 15 that required cryotherapy. Hx PID at age 15; no other hx of STD's/STI's. Last mammogram today. DEXA scan done in 01/2013 with lumbar total T-score -0.7; left hip total T-score -1.8, however femoral neck with noted T-score of -2.5 indicative of 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 She saw Dr Hall. Pt reports taking calcium and Vitamin D supplements; followed by endocrine. Family History Problem Relation Age of Onset ??? Osteoporosis Mother ??? Depression Mother ??? Breast Cancer Paternal Grandmother 45 ??? Cancer Maternal Aunt lymph node CA ??? Depression Father ??? Colorectal Cancer Neg Hx ??? Ovarian Cancer Neg Hx Social History Social History ??? Marital status: Spouse name: N/A ??? Number of children: N/A ??? Years of education: N/A Occupational History ??? Not on file. Social History Main Topics ??? Smoking status: Never Smoker ??? Smokeless tobacco: Never Used ??? Alcohol use No ??? Drug use: No ??? Sexual activity: Yes Partners: Male control/ protection: Surgical Other Topics Concern ??? Not on file Social History Narrative with 3 children. Recently moved to a new home in their town of [place], [place]. 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 Eats relatively healthy with fruits, vegetables, yogurt, and milk; minimal meat. Eats 3 meals per day, does not drink tea or coffee, and occasionally drinks soda.Her youngest is 16 yrs old. The other two are out of the house. She is very involved with hersons family that has lots of psycho social issues, her sons is bipolar, back issue, they have one child together, she had 3 in a previous relationship. She has not gone for counseling. Outpatient Prescriptions Marked as Taking for the 08/02/16 encounter (Office Visit) with Ida Ron APRN Medication Sig Dispense Refill ??? estradiol 0.1 mg/24 hr Patch Semiweekly apply 1 patch two times a week as directed 8 patch 11 ??? NASONEX 50 mcg/actuation [place], Non-Aerosol 0 ??? SUMAtriptan (IMITREX) 100 mg Tablet 1 ??? levonorgestrel (MIRENA) 20 mcg/24 hr (5 years) IUD 1 each by Intrauterine route once. Lot [id number] ??? omeprazole (PRILOSEC) 20 mg Capsule, Delayed Release(E.C.) take 1 capsule by mouth twice a day 0 ??? ondansetron (ZOFRAN) 4 mg Tablet take 1 tablet by mouth every 6 hours if needed 0 ??? fluconazole (DIFLUCAN) 150 mg Tablet take 1 tablet by mouth if needed for SYMPTOMS OF YEAST VAGINITIS 0 ??? hydrocortisone (WESTCORT) 0.2 % Cream ??? NIFEdipine (ADALAT CC) 30 mg Tablet Sustained Release Take 30 mg by mouth daily. ??? cetirizine (ZYRTEC) 10 mg tablet Take 10 mg by mouth daily. ??? fluticasone-salmeterol (ADVAIR) 500-50 mcg/dose diskus inhaler Inhale 1 puff into the lungs 2 times daily as needed. ??? multivitamin (THERAGRAN) tablet Take 1 tablet by mouth daily. ??? montelukast (SINGULAIR) 10 mg tablet Take 10 mg by mouth every morning. ??? albuterol (ACCUNEB) 0.63 mg/3 mL nebulizer solution ??? tacrolimus (PROTOPIC) 0.1 % ointment 1 Appl(s) Top Twice daily ??? KETOCONAZOLE (NIZORAL TOP) Allergies as of 08/02/2016 - Review Complete 08/02/2016 Allergen Reaction Noted ??? Grass pollen-bermuda, standard Other (See Comments) 12/07/2010 ??? Mold extracts Other (See Comments) 03/31/2013 BP 122/69 (BP Location (NBP): Right arm, Patient Position: Sitting) Pulse 69 Temp 36.5 ??C (97.7 ??F) Resp 16 Ht 172.7 cm (5' 8) Wt 66 kg (145 lb 9.6 oz) SpO2 100% BMI 22.14 kg/m2 PHYSICAL EXAM: Breasts- Without suspicious masses, puckers or D/C Abdomen- Without masses or tenderness Pelvic exam- [] External Genitalia- pink, without lesions Urethral meatus- without masses or lesions Vagina- pink, no abn d/c Cervix- pink, no suspicious lesions, normal d/c, Cervix visualized,IUD string visualized @ 1 cm in length, blood streak mucus, scant amount Uterus- a/v, without masses, normal size and contour Adenexa- without masses Rectovaginal exam- confirms, good tone, no hemorrhoids A: Unremarkable pulper tender exam P: F/U one yr documented in this encounter Plan of Treatment Upcoming Encounters Date Type Specialty Care Team Description 04/10/2022 Appointment Radiology Luis Michael MD [facility] UROLOGY DEPT. [place], [place] [address] (Wo rk) 04/10/2022 Office Visit Urology Luis Michael MD [facility] UROLOGY DEPT. [place], [place] [address] (Wo rk) 07/13/2022 Appointment Radiology Maile Hinojosa MD [facility] ENDOCRINOLOGY [place], [place] [address] (Wo rk) 07/13/2022 Office Visit Endocrinology Maile Hinojosa MD [facility] ENDOCRINOLOGY [place], [place] [address] (Wo rk) documented as of this encounter Visit Diagnoses Diagnosis Encounter for gynecological examination without abnormal finding Routine gynecological examination documented in this encounter Care Teams Welding Process Specialist Relationship Specialty Start Date End Date Monica Garcia MD PCP - General 01/06/13 02/27/[address] [place] [id number] documented as of this encounter
--- OUTSIDE RECORDS SUMMARY | 2022-03-23 02:27 | XMS_ITS | Encounter Summary ---
:1965 Author Organization [facility] [place] [address] Care Team Providers Name Role Phone Doreen Larios Primary Care Provider [phone] Encounter Details Date Type Department Care Team Description 06/11/2018 Office Visit Urology at [facility] Ferdinand Pennington History of [facility] MD Jules nephrolithiasis [facility] [id number] UROLOGY DEPT. [phone] [place] [address] Social History Tobacco Use Types Packs/Day Years Used Date Never Smoker Smokeless Tobacco: Never Used Alcohol Use Standard Drinks/Week Comments No 0 (1 standard drink = 0.6 oz pure alcoho l) Sex Assigned at Date Recorded Female 01/29/2022 12:45 PM EDT documented as of this encounter Last Filed Vital Signs Vital Sign Reading Time Taken Comments Blood Pressure 102/68 06/11/2018 3:42 PM EDT Pulse 71 06/11/2018 3:42 PM EDT Temperature - - Respiratory Rate - - Oxygen Saturation 100% 06/11/2018 3:42 PM EDT Inhaled Oxygen Concentration - - Weight - - Height - - Body Mass Index - - documented in this encounter Progress Notes Ferdinand Pennington Jr., MD - 06/11/2018 3:30 PM EDT HPI Ms. Jessica Gtz returns for follow up regarding reported hematuria with history of urolithiasis. She is s/p SWL in 2007 and left ureterscopy in 07/2010. Although ultrasounds have suggested a 4-5 mm left lower pole stone, CT confirmed no residual stone. In 2017 after reported hematuria, she underwent CT urogram which showed no evident abnormality (on review of fine cuts of non-contrast phase, possible tiny punctate left lower pole calcification suggested). Microscopuc u/a showed <1rbc/hpf. In light of her report of witnessed spotting, opted to still proceed with cystoscopy to complete suspected hematuria evaluation. Cystoscopy revealed tiny raised lesion which was resected and 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 In the interval since her last visit, she has been well. She denies stone passage, suspected renal colic, hematuria, dysuria or other complaints. She sprained her ankle and chipped a bone is on crutches today, otherwise she has been comfortable. Review of Systems Constitution: Negative for fever. Gastrointestinal: Negative for abdominal pain. Genitourinary: Negative for flank pain. Past medical history: migraines, GERD, urolithiasis, osteoporosis [...] atraumatic. Cardiovascular: Normal rate. Pulmonary/Chest: Effort normal. Abdominal: Soft. She exhibits no distension. There is no tenderness. There is no rebound and no guarding. Genitourinary: Genitourinary Comments: No CVA tenderness to percussion bilaterally Neurological: She is alert and oriented to person, place, and time. Skin: She is not diaphoretic. Psychiatric: She has a normal mood and affect. Her behavior is normal. Vitals reviewed. Stone analysis: 90% calcium oxalate dehydrate and 10% calcium phosphate. Pathology: Bladder lesion: ?Fragment of benign urothelium and lamina propria ?with focal atypia. CR-0 Electronically signed by: ??Kole Dudley MD Imaging studies: I independently reviewed the renal ultrasound from today. This reveals no evidence of hydronephrosis, hydroureter, or new stones. Mild right pelviectasis noted. Both ureteral jets visualized. I also re-reviewed CT urogram with findings as noted above and summarized below. CT urogram report: Right kidney and ureter: No calculi, hydronephrosis or hydroureter. No renal lesions. No filling defect or abnormal wall thickening in the collecting system. ?? Left kidney and ureter: No calculi, hydronephrosis or hydroureter. No renal lesions. No filling defect or abnormal wall thickening in the collecting system. ? IMPRESSION Negative CT urogram. No etiology identified for hematuria. Impression/Plan: Doing well, currently remains stone free. Mild right pelviectasis - -asymptomatic, with preserved ureteral jet and per radiology potentially simply related to peristalsis or bladder distension. We discussed further diagnostic options includingrepeat CT urogram or endoscopic inspection; she is content to simply monitor with annual renal u/s. documented in this encounter Plan of Treatment Upcoming Encounters Date Type Specialty Care Team Description 04/10/2022 Appointment Radiology Ferdinand Pennington MD [facility] UROLOGY DEPT. [place], [place] [address] (Wo rk) 04/10/2022 Office Visit Urology Ferdinand Pennington MD [facility] UROLOGY DEPT. [place], [place] [address] (Wo rk) 07/13/2022 Appointment Radiology Maile Hinojosa MD [facility] ENDOCRINOLOGY [place], [place] [address] (Wo rk) 07/13/2022 Office Visit Endocrinology Maile Hinojosa MD [facility] ENDOCRINOLOGY [place], [place] [address] (Wo rk) documented as of this encounter Results US Retroperitoneal Complete (06/30/2019 [...] below. Electronically signed by: Celine zee MD, [facility] ([phone]), at 3:56 PM ?Celine Anna, Staff Physician Electronically Signed Final Report ?? 04:04 pm Narrative 06/30/2019 4:05 PM EST Renal ? (Signed Final 06/30/2019 04:04 pm) PATIENT INFO: ID #: ? [id number] ?: ??[birth year] (53 yrs) Name: ? JESSICA GTZ ?Visit Date: 06/30/2019 03:50 pm PERFORMED BY: Performed By: ? Humberto Donnelly RDMS Attending: ?Shoshana GILL, There J. Referred By: ?FERDINAND PENNINGTON JR Location: ? [place] SERVICE(S) PROVIDED: ??URETRO - Retroperitoneal Complete - [id number] ? [id number] INDICATIONS: ??? stones COMPARISON: Ultrasound: Renal / [...] 04:04 pm ) PATIENT INFO: ID #: [id number] : [birth year] (53 y rs) Name: JESSICA GTZ Visit Date: 06/30 03:50 pm PERFORMED BY: Performed By: Humberto Donnelly RDMS Attending: Celine Anna MD Referred By: FERDINAND PENNINGTON JR Location: [place] SERVICE(S) PROVIDED: URETRO - Retroperitoneal Complete - [facility] [id number] INDICATIONS: ? stones COMPARISON: Ultrasound: Renal / [...] below. Electronically signed by: Celine zee MD, [facility] ([phone]), at 3:56 PM Celine Anna, Staff Physician Electronically Signed Final Report 06/30 04:04 pm Ferdinand Pennington Jr., MD [facility] GEN ORDERABLES documented in this encounter Visit Diagnoses Diagnosis History of nephrolithiasis Personal history of urinary calculi History of nephrolithiasis Personal history of urinary calculi documented in this encounter Care Teams Director Of Regulatory Affairs Relationship Specialty Start Date End Date Doreen Larios PA PCP - General Family Medicine 05/16/18 06/22/18 documented as of this encounter
--- OUTSIDE RECORDS SUMMARY | 2022-03-23 02:27 | XMS_ITS | Encounter Summary ---
:1965 Author Organization [facility] Address [address] [place] [address] Care Team Providers Name Role Phone Sarah Young APRN Primary Care Provider [phone] Encounter Details Date Type Department Care Team Description 08/05/2017 Office Visit Obstetrics and Ida Ron, Encounter for Gynecology at [facility] [place] ENTRY LEVEL SALES CONSULTANT gynecological [facility] examin[address] on [address] abnormal finding [place], [place] OBSTETRICS & [id number] GYNECOLOGY [phone] [place], [place] [address] Social History Tobacco Use Types Packs/Day Years Used Date Never Smoker Smokeless Tobacco: Never Used Alcohol Use Standard Drinks/Week Comments No 0 (1 standard drink = 0.6 oz pure alcoho l) Sex Assigned at Date Recorded Female 01/29/2022 12:45 PM EDT documented as of this encounter Last Filed Vital Signs Vital Sign Reading Time Taken Comments Blood Pressure 104/72 08/05/2017 7:19 AM EST Pulse - - Temperature - - Respiratory Rate - - Oxygen Saturation - - Inhaled Oxygen Concentration - - Weight 68.4 kg (150 lb 11.2 oz) 08/05/2017 7:19 AM EST Height 172.7 cm (5' 8) 08/05/2017 7:19 AM EST Body Mass Index 22.91 08/05/2017 7:19 AM EST documented in this encounter Progress Notes Ida Ron, ENTRY LEVEL SALES CONSULTANT - 08/05/2017 7:00 AM EST Reason for visit: Annual handwriting expert exam ROS: MEDICAL DOCTOR NUCLEAR MEDICINE: No urinary inc, no vaginal itching, burning, AUB. She has a hx of AUB, had EMB which was neg, she uses an Estradiol patch and Mirena for menopausal treatment of hot flushes, fatigue, vaginal dryness. She would like to maintain this regime. Saw PCP a couple months ago Past Medical History: Diagnosis Date ??? Abnormal glandular Papanicolaou smear of cervix age 15 ??? Asthma ??? Gastric acidity possible ulcer ??? History of nephrolithiasis ??? Migraines ??? Osteoporosis ??? Raynaud's disease Past Surgical History: Procedure Laterality Date ??? CREATED BY [employer] Cathy(MSUROL) Procedure Date: 01/16/2008 ??? KNEE SURGERY 03/01/14 Right knee; patella surgery ??? LITHOTRIPSY ? ? PRO CYSTOURETHROSCOPY, FULGUR <.5CM LESN N/A 04/18/2017 CYSTO, FULGURATION\BLADDER LESION\W\WO BX\LESS THAN 0.5CM (WRVU 4.05) performed by Luis Michael Jr., MD at [facility] MAIN OR MEDICAL DOCTOR NUCLEAR MEDICINE History: Pt is a 51 year old G 4 P 3 female. Last pap 04/2016 WNL, neg HPV; hx abnormal pap at age 15 that required cryotherapy. Hx PID at age 15; no other hx of STD's/STI's. Last mammogram today. DEXA scan done in 06/27/17 femoral neck with noted T-score of -2.7. She sees Dr Hall. Pt reports taking calcium and [...] activity: Yes Partners: Male control/ protection: Surgical Comment: vasectomy Other Topics Concern ??? Not on file Social History Narrative with 3 children. Recently moved to a new home in their town of [place], [place]. 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 Eats relatively healthy with fruits, vegetables, yogurt, and milk; minimal meat. Eats 3 meals per day, does not drink tea or coffee, and occasionally drinks soda.Her youngest is 17 yrs old, senior. The other two are out of the house. She is very involved with her sons family that has lots of psycho social issues, her sons is bipolar, back issue, they have one child together, she had 3 in a previous relationship. She has not gone for counseling. Outpatient Prescriptions Marked as Taking for the 08/05/17 encounter (Office Visit) with Ida Ron APRN Medication Sig Dispense Refill ??? azelastine (ASTELIN) 137 mcg (0.1 %) Aerosol, [place] instill 1 spray into each nostril twice a day 0 ??? SYMBICORT 160-4.5 mcg/actuation HFA Aerosol Inhaler 0 ??? estradiol 0.1 mg/[address] 1 patch onto the skin twice a week. 8 patch 11 ??? linaclotide (LINZESS) 72 mcg Capsule Take 72 mcg by mouth every other day. ??? donepezil (ARICEPT) 10 mg Tablet Take 10 mg by mouth every morning. ??? SUMAtriptan (IMITREX) 100 mg Tablet as needed for Migraine. 1 ??? levonorgestrel (MIRENA) 20 mcg/24 hr (5 years) IUD 1 each by Intrauterine route once. Lot [id number] ??? omeprazole (PRILOSEC) 20 mg Capsule, Delayed Release(E.C.) PRN 0 ??? hydrocortisone (WESTCORT) 0.2 % Cream Apply topically as needed. ??? NIFEdipine (ADALAT CC) 30 mg Tablet [...] ??? KETOCONAZOLE (NIZORAL TOP) Allergies as of 08/05/2017 - Review Complete 08/05/2017 Allergen Reaction Noted ??? Grass pollen-bermuda, standard Other (See Comments) 12/07/2010 ??? Mold extracts Other (See Comments) 03/31/2013 BP 104/72 (BP Location (NBP): Right arm, Patient Position: Sitting, BP Cuff Sizes: Adult (25-34 cm)) Ht 172.7 cm (5' 8) Wt 68.4 kg (150 lb 11.2 oz) BMI 22.91 kg/m2 PHYSICAL EXAM: Thyroid: Smooth, symmetrical Lungs- Clear Heart- HRR Breasts- Without suspicious masses, puckers or D/C Abdomen- Without masses or tenderness Pelvic exam- [] External Genitalia- pink, without lesions Urethral meatus- without masses or lesions Vagina- pink, no abn d/c Cervix- pink, there is an area on the anterior lip of cervix, betweem 11-1 o'clock eliptical shaped, defined border, appears mildly erosive but does not bleed when pap obtained, IUD string seen just inside cervical os, Pap specimen collected w/ cytobrush, placed in preservative and sent to cytology. Uterus- a/v, without masses, normal size and contour [place]- without masses Rectovaginal exam- confirms, good tone, no hemorrhoids A: Unremarkable handwriting expert exam Cervical erosion possible due to IUD string vs hx of cryo Perimenopause/menopause P: Pap pending Con't with ERT and Mirena Sowmya Harris - 08/05/2017 7:00 AM EST Subjective: Stacy Albright is a 51 y.o. female who presents for an annual exam. The patient has no complaints today. The patient is sexually active. Patient denies vaginal bleeding, discharge, itchiness, U/F/D, pain with intercourse, and vaginal dryness. Review of Systems Pertinent items are noted in HPI. Screening/Health Maintainence Mammo: last 07/04/17 and scheduled for today Pap: last 05/01/16 NILM Colon: 4 years ago at outside institution DEXA: 06/27/17 under the care of Dr. Hall PCP: visited few months back for acute health needs, PCP does not annual exams. Past Medical History: Diagnosis Date ??? Abnormal glandular Papanicolaou smear of cervix age 15 ??? Asthma ??? Gastric acidity possible ulcer ??? History of nephrolithiasis ??? Migraines ??? Osteoporosis ??? Raynaud's disease Past Surgical History: Procedure Laterality Date ??? CREATED BY [employer] Cathy([employer]) Procedure Date: 01/16/2008 ??? KNEE SURGERY 03/01/14 Right knee; patella surgery ??? LITHOTRIPSY ? ? PRO CYSTOURETHROSCOPY, FULGUR <.5CM LESN N/A 04/18/2017 CYSTO, FULGURATION\BLADDER LESION\W\WO BX\LESS THAN 0.5CM (WRVU 4.05) performed by Luis Michael Jr., MD at [facility] MAIN OR Social History Social History ??? Marital status: Spouse name: N/A ??? Number of children: N/A ??? Years of education: N/A Occupational History ??? Not on file. Social History Main Topics ??? Smoking status: Never Smoker ??? Smokeless tobacco: Never Used ??? Alcohol use No ??? Drug use: No ??? Sexual activity: Yes Partners: Male control/ protection: Surgical Comment: vasectomy/04/2016 Mirena Other Topics Concern ??? Not on file Social History Narrative with 3 children. Recently moved to a new home in their town of [place], [place]. 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 Eats relatively healthy with fruits, vegetables, yogurt, and milk; minimal meat. Eats 3 meals per day, does not drink tea or coffee, and occasionally drinks soda.Her youngest is 17 yrs old, senior. The other two are out of the house. She is very involved with her sons family that has lots of psycho social issues, her sons is bipolar, back issue, they have one child together, she had 3 in a previous relationship. She has not gone for counseling. Objective: BP 104/72 (BP Location (NBP): Right arm, Patient Position: Sitting, BP Cuff Sizes: Adult (25-34 cm)) Ht 172.7 cm (5' 8) Wt 68.4 kg (150 lb 11.2 oz) BMI 22.91 kg/m2 Gen: Well developed, well nourished, alert and cooperative, appears to be in no acute distress Neck: Supple, non-tender, without masses or thyromegaly. CV: Regularly, regular rhythm. Normal S1 & S2. No S3 & S4, murmurs, or rubs. Lungs: +Bilateral expiratory wheezing. Abdomen: Soft, nondistended, nontender. No guarding or rebound. No masses. Breast: No masses, tenderness, asymmetry, nipple discharge, or axillary nodes Pelvic: + mildly erythematous erosion with well-demarcated borders at 11 to 1 o'clock on the cervix,non-friable upon pap smear, +IUD string noted at 4 o'clock. Normally developed external female genitalia with no lesions or eruptions. Vagina has no lesions, inflammation, or tenderness. Cervix is nonte nder. Uterus is anteverted with no adnexal fullness. Assessment: Stacy Albright is a 51 y.o. female who presents for an annual exam. She has no complaints. Upon pelvic exam, a mildly erythematous cervical erosion with well- demarcated borders was visualized. Pap smear with ecto- and endocervical samples was taken. Plan: Await Pap smear results. Patient was informed that we would call her with the results in 2-3 weeks. Follow with annual exam next year. documented in this encounter Plan of Treatment Upcoming Encounters Date Type Specialty Care Team Description 04/10/2022 Appointment Radiology Luis Michael MD [facility] UROLOGY DEPT. [place] [id number] (Wo rk) 04/10/2022 Office Visit Urology Luis Michael MD [facility] DR UROLOGY DEPT. [place], [place] [address] (Wo rk) 07/13/2022 Appointment Radiology Maile Hinojosa MD [facility] ENDOCRINOLOGY [place], [place] [address] ([facility]) 07/13/2022 Office Visit Endocrinology Maile Hinojosa MD [facility] ENDOCRINOLOGY [place], [place] [address] ([facility]) documented as of this encounter Procedures Procedure Name Priority Date/Time Associated Diagnosis Comme nts MEDICAL DOCTOR NUCLEAR MEDICINE CYTOLOGY Routine 08/05/2017 9:41 Results for this INTERPRETATION AM EST procedure are in the results section. MEDICAL DOCTOR NUCLEAR MEDICINE CYTOLOGY FINAL Routine 08/05/2017 9:41 Result s for this REPORT AM EST procedure are i n the results section. CYTOPATHOLOGY Routine 08/05/2017 9:41 Encounter for Results fo r this GYNECOLOGICAL AM EST gynecological procedure are in examination without the resu lts abnormal finding section. documented in this encounter Results Business Sales Consultant Cytology Final Report (08/05/2017 9:41 AM EST) Component Value Ref Test Analysis Performed At [facility] Range Method Time Signature Business Sales Consultant Cytology ? Location: [address] [place] [address] Final Report DENISON The signing pathologist has (i) examined the relevant preparation(s) for the [facility] specimen(s) and (ii) rendered or confirmed the diagnosis(es) . HOSPITAL LABORATORY . ? Business Sales Consultant Final DIAGNOSIS Normal Negative for Intraepithelial Lesion or Malignancy (NILM). For consensus guidelines for the management of c ervical cancer screening test results, please see: ?? http://www.asccp.org . Electronically signed by: ??Heladio CÁRDENAS(ASCP), Salma Ribera Verified: ??08/16/2017 ?Electronic Court Recorder Performed at: ??-[facility] – [place] Dept. of Pathology, [place], [place] HPV RESULTS Not applicable (HPV testing either not indicated or not requested by clinician). STATEMENT OF ADEQUACY Specimen submitted is satisfactory. Endocervical component present. CLINICAL INFORMATION HPV Option: ?Reflex HPV Preparation: ? Liquid based Pap Specimen Source: ? Cervical/Endocervical LMP: ? n/a Hormones?: ? Yes Hysterectomy?: ? No ?: ? No ?: ? No I.U.D.?: ? Yes Pelvic Radiation: ?No Prior MEDICAL DOCTOR NUCLEAR MEDICINE Therapy?: ?Cryotherapy Hist Abnl Pap/Biopsy?: ?? Yes, history of previous abnormal Pap Hist of HPV Vaccine?: ?No Hist of Smoking?: ?No Hist of HAZEL exposure?: ?? No ICD Diagnosis: ? Z12.4 Encounter for screening for malignant neoplasm of cervix Clinical Data, Significant Therapy and Clinical Impression ? ? : ?area of cervical erosion anterior lip cervix; hx cryo This Pap Test has been evalu ated with the assistance of the ThinPrep Pap Test Imaging System. Note: The Pap test is a screening test for cervical cancer with an inherent false-negative rate dependent upon several variables. For further information please contact the [facility] [place] [place] Laboratory. Reference: Devika LEON. Lead Systems Engineer of Pap Smear Results. In: Sukumar SALAZAR, Roni CALLEJAS, meghan spangler. The Pap Smear. [place]: Jonah, 2002: 71-77. Specimen (Source) Anatomical Collection Method Collection Time Re ceived Time Location / / Volume Laterality 08/05/2017 9:41 AM EST Ida Ron ENTRY LEVEL SALES CONSULTANT PATHOLOGY/CYTOLOGY ORDERABLE S Performing Organization Address City/[facility]/[place] [address] MEDICAL DOCTOR NUCLEAR MEDICINE Cytology Interpretation (08/05/2017 9:41 AM EST) [facility] gist Method Time Signature Business Sales Consultant Cytology NILM [facility] LABORATORY Comment: Business Sales Consultant Cytology Final Report Acces kendall: [id number] Endocerv[address] Component Present [facility] LAB[facility] Specimen Anatomical Collection Method Collection Time Receive d Time (Source) Location / / Volume Laterality AP Specimen 08/05/2017 9:41 AM 7 EST 10:17 AM EST Ida Ron ENTRY LEVEL SALES CONSULTANT PATHOLOGY/CYTOLOGY ORDERABLE S Performing Organization Address City/[facility]/[place] [address] Cytopathology Gynecological (08/05/2017 9:41 AM EST) Specimen Anatomical Collection Method Collection Time Receive d Time (Source) Location / / Volume Laterality AP Specimen 08/05/2017 9:41 AM 7 9:41 EST AM EST Narrative [facility] - 08/05/2017 9:41 AM EST Specimen requisition ordered. ??Separate Pathology report to follow Ida Ron APRN PATHOLOGY/CYTOLOGY ORDERABLE S Performing Organization Address City/[facility] Phon e Number [address] documented in this encounter Visit Diagnoses Diagnosis Encounter for gynecological examination without abnormal finding Routine gynecological examination documented in this encounter Care Teams Automatic Print Developer Relationship Specialty Start Date End Date Sarah Young APRN PCP - General Family Medicine 06/27/17 05/15/18 [address] [place] [address] documented as of this encounter
--- OUTSIDE RECORDS SUMMARY | 2022-03-23 02:27 | XMS_ITS | Encounter Summary ---
:1965 Author Organization [facility] [place] [address] Care Team Providers Name Role Phone Suzie Mcintyre APRN Primary Care Provider Encounter Details Date Type Department Care Team Description 03/18/2017 Telephone Urology [place] [facility] [place] Michael Jr., MD [facility] [place] [address] UROLOGY DEPT. [phone] [place], [place] [address] (Wo rk) Social History Tobacco Use Types Packs/Day Years Used Date Never Smoker Smokeless Tobacco: Never Used Alcohol Use Standard Drinks/Week Comments No 0 (1 standard drink = 0.6 oz pure alcoho l) Sex Assigned at Date Recorded Female 01/29/2022 12:45 PM EDT documented as of this encounter Miscellaneous Notes Telephone Encounter - Luis Michael Jr., MD - 03/18/2017 12:23 PM EDT I called to review CT report with Ms Albright. Per report, no evident source for hematuria is identified. No evidence of renal mass, collecting system filling defect, or evident bladder abnormality noted. No discrete stones reported, although on review of fine cuts of non-contrast phase, possible tiny punctate left lower pole calcification suggested. We reviewed u/a showing <1rbc/hpf. In light ofher report of witnessed spotting, we discussed could still proceed with cystoscopy to complete suspected hematuria evaluation, as well as watchful waiting. She wishes to proceed with cystoscopy. If negative cysto, I also suggested she undergo MECHANICAL LEAD evaluation to assess for possible MECHANICAL LEAD source for bloodyspotting. She will proceed in this fashion. If sooner cystoscopy available with Nadia Urias APRN, shewould be happy to see her instead. CT urogram report: ?? Right kidney and ureter: No calculi, hydronephrosis or hydroureter. No renal lesions. No filling defect or abnormal wall thickening in the collecting system. ?? Left kidney and ureter: No calculi, hydronephrosis or hydroureter. No renal lesions. No filling defect or abnormal wall thickening in the collecting system. ?? Urinary bladder: Normal, no calculi, or visible mass. ?? Lower chest: Normal. ?? Liver: Normal. Bile ducts: Nondilated. Gallbladder: No calcified gallstones. Normal caliber wall. Pancreas: Normal. Spleen: Normal. Adrenals: Normal. Vasculature: No aneurysm. Lymph Nodes: No enlarged lymph nodes. ?? Bowel: Nondilated, no wall thickening. Peritoneum and mesentery: No ascites, free air, or loculated fluid collection. No mesenteric inflammation. Abdominal wall: Normal. ?? Reproductive organs: Normal. Osseous structures: No suspicious lesions. ?? IMPRESSION Negative CT urogram. No etiology identified for hematuria. documented in this encounter Plan of Treatment Upcoming Encounters Date Type Specialty Care Team Description 04/10/2022 Appointment Radiology Luis Michael MD [facility] UROLOGY DEPT. [place], [place] [address] (Wo silva) 04/10/2022 Office Visit Urology Luis Michael MD [facility] UROLOGY DEPT. [place], [place] [address] (Wo silva) 07/13/2022 Appointment Radiology Maile Hinojosa MD [facility] ER ENDOCRINOLOGY [place], [place] [address] (Wo rk) 07/13/2022 Office Visit Endocrinology Maile Hinojosa MD [facility] ENDOCRINOLOGY [place], [place] [address] (Wo rk) documented as of this encounter Visit Diagnoses Not on filedocumented in this encounter Care Teams K9 Handler Relationship Specialty Start Date End Date Suzie Mcintyre APRN PCP - General Family Medicine 02/28/17 06/26/17 documented as of this encounter
--- OUTSIDE RECORDS SUMMARY | 2022-03-23 02:27 | XMS_ITS | Encounter Summary ---
:1965 Author Organization [employer] [place] [address] Care Team Providers Name Role Phone Suzie Mcintyre APRN Primary Care Provider Reason for Referral Diagnostic Test (Routine) - Closed Specialty Diagnoses / Procedures Referred By Contact Refer red To Contact Radiology Diagnoses Nephrolithiasis Ferdinand Michael Jr., MD [facility] Rad Ct Scan Procedures CT Urogram [facility] [place] [address] [place] [address] Referral ID Status Reason Start Date Expiration Date Visits V isits Requested Authorized [id number] Closed Specialty 03/14/2017 05/12/2017 1 1 Service Requested Reason for Visit Reason Comments Flank Pain Encounter Details Date Type Department Care Team Description 03/13/2017 Office Visit Urology at [facility] Ferdinand Michael Jr., Nephrolithiasis [facility] [place] [address] [facility] [phone] UROLOGY DEPT. [place], [place] [address] (Wo rk) Social History Tobacco Use Types Packs/Day Years Used Date Never Smoker Smokeless Tobacco: Never Used Alcohol Use Standard Drinks/Week Comments No 0 (1 standard drink = 0.6 oz pure alcoho l) Sex Assigned at Date Recorded Female 01/29/2022 12:45 PM EDT documented as of this encounter Last Filed Vital Signs Vital Sign Reading Time Taken Comments Blood Pressure 120/63 03/13/2017 3:48 PM EDT Pulse 61 03/13/2017 3:48 PM EDT Temperature - - Respiratory Rate - - Oxygen Saturation - - Inhaled Oxygen Concentration - - Weight 65.8 kg (145 lb) 03/13/2017 3:48 PM EDT Height 172.7 cm (5' 8) 03/13/2017 3:48 PM EDT Body Mass Index 22.05 03/13/2017 3:48 PM EDT documented in this encounter Progress Notes Elliot Alberto MD - 03/13/2017 3:40 PM EDT Urology Outpatient Clinic Visit HPI Ms. Stacy Albright returns for follow up regarding urolithiasis. She is s/p SWL in 2007 and left ureterscopy in 07/2010. Although ultrasounds have suggested a 4-5 mm left lower pole stone, CT confirmed no residual stone. She was last seen in this clinic in July 2015. At that time she had some mild pain and ultrasound showed a possible 4mm left mid-renal stone. She elected for observation. She called a few weeks ago with increasing flank pain and requested an evaluation and is here for this today. She said that she has not passed any stones; she says she has never passed them. She also denies fevers and hematuria. She says she is nervous because the pain is constant and she thinks she has another stone. Her diet remains the same; she takes in a good amount of fluid daily and avoids sodium and oxalate. She has started two new medications: donepezil and linzess. Review of Systems Constitution: Negative for chills and fever. Gastrointestinal: Positive for abdominal pain. Negative for constipation and diarrhea. Genitourinary: Positive for flank pain. Negative for hematuria. Past medical history: migraines, GERD, urolithiasis, osteoporosis Past surgical history: SWL, left ureteroscopy Family history: no history of urolithiasis Social History: no tobacco history; no alcohol use Dietary History: 3-4 liters fluid intake/day; low sodium intake; moderate purine/animal protein intake; moderate oxalate intake; moderate dairy intake . Vitals: 03/13/17 1548 BP: 120/63 Pulse: 61 Physical Exam Constitutional: She is oriented to person, place, and time. She appears well- developed and well-nourished. HENT: Head: Normocephalic and atraumatic. Eyes: Conjunctivae are normal. Neck: Neck supple. Cardiovascular: Normal rate. Pulmonary/Chest: Effort normal. Abdominal: Soft. Mild left CVA tenderness; none on right; tenderness to palpation of left back/flank Musculoskeletal: She exhibits no edema. Neurological: She is alert and oriented to person, place, and time. Skin: Skin is warm and dry. Psychiatric: She has a normal mood and affect. UA: positive for blood only Stone analysis: 90% calcium oxalate dehydrate and 10% calcium phosphate. Imaging studies: I independently reviewed the renal ultrasound and abdominal films from today. I do not see any left sided stones or hydronephrosis. KUB 03/13 IMPRESSION No radiopaque urinary tract calculus identified. Impression/Plan: Left flank ache of unclear etiology. She is concerned it may be related to stone. Ioffered CT to assess if this truly is a stone in the left kidney, she will proceed with this. We ordered a BMP to assess her renal function. We also discussed the microscopic hematuria today. We will send her urine for UA and culture. We will also order a CT Urogram to look for stones and as part of a hematuria work-up. We will arrange for an office cystoscopy if the CT is negative. She understands all of this.Will follow up after CT STAFF ADDENDUM: I saw and examined Stacy Albright with Dr. Alberto, have independently reviewed her iu/s, and concur with history, exam, impression, and plan as noted and amended above. FERDINAND MICHAEL JR, MD Ferdinand Michael Jr., MD - 03/13/2017 3:40 PM EDT I saw and examined Stacy Albright with Dr. Alberto and have independently reviewed her imagingstudies. I agree with history, exam, impression, and plan as noted. Given persistent left flank pain, despite no evidence of left sided stone/obstruction on renal u/s and possible microscopic hematuria, she wishes to proceed with CT urogram which will be scheduled for her. We discussed cystoscopy would be recommended if hematuria is confirmed -- she will consider and let us know when she returns. documented in this encounter Miscellaneous Notes Addendum Note - Lucy Childs RN - 03/13/2017 4:54 PM EDT Addended by: LUCY CHILDS on: 03/13/2017 04:54 PM Modules accepted: Orders documented in this encounter Plan of Treatment Upcoming Encounters Date Type Specialty Care Team Description 04/10/2022 Appointment Radiology Ferdinand Michael MD [facility] UROLOGY DEPT. [place] [id number] (Wo rk) 04/10/2022 Office Visit Urology Ferdinand Michael MD [facility] UROLOGY DEPT. [place], [place] [address] (Wo rk) 07/13/2022 Appointment Radiology Maile Hinojosa MD [facility] ENDOCRINOLOGY [place], [place] [address] (Wo rk) 07/13/2022 Office Visit Endocrinology Maile Hinojosa MD [facility] ENDOCRINOLOGY [place], [place] [address] (Wo silva) documented as of this encounter Procedures Procedure Name Priority Date/Time Associated Diagnosis Comme nts URINE CULTURE Routine 03/13/2017 5:50 PM Nephrolithiasis Resul ts for this EDT procedure are i n the results section. URINALYSIS WITH Routine 03/13/2017 4:52 PM Nephrolithiasis Res ults for this REFLEX CULTURE EDT procedure are in the results section. documented in this encounter Results CT Urogram (03/15/2017 4:10 PM EDT) Anatomical Region Laterality Modality Abdomen, Pelvis Computed Tomography Specimen (Source) Anatomical Location Collection Method / Collectio n Time Received Time / Laterality Volume Impressions 03/15/2017 4:[address] urogram. No etiology identified for hematuria. Narrative 03/15/2017 4:56 PM EDT EXAMINATION: CT UROGRAM CLINICAL HISTORY: hematuria TECHNIQUE: Helical CT of the abdomen and pelvis was performed prior to and following intravenous administration of 110 ml of Omnipaque 350. ??3D VR and MIP images were reformatted on a separate wo rkstation and reviewed as part of this study. The study is slightly limited due to under distention of distal ureter, and mid and distal portions of the right ureter. COMPARISON: July 27, 2011 FINDINGS: Right kidney and ureter: No calculi, hyd ronephrosis or hydroureter. No renal lesions. No filling defect or abnormal w all thickening in the collecting system. Left kidney and ureter: No calculi, hydr onephrosis or hydroureter. No renal lesions. No filling defect or abnormal w all thickening in the collecting system. Urinary bladder: Normal, no calculi, or visible mass. Lower chest: Normal. Liver: Normal. Bile ducts: Nondilated. Gallbladder: No calcified gallstones. No rmal caliber wall. Pancreas: Normal. Spleen: Normal. Adrenals: Normal. Vasculature: No aneurysm. Lymph Nodes: No enlarged lymph nodes. Bowel: Nondilated, no wall thickening. ? ? Peritoneum and mesentery: No ascites, fr ee air, or loculated fluid collection. No mesenteric inflammation. Abdominal wall: Normal. Reproductive organs: Normal. Osseous structures: No suspicious lesion s. Procedure Note Melvin Garcia MD - 03/15/2017For matting of this note might be different from the original. EXAMINATION: CT UROGRAM CLINICAL HISTORY: hematuria TECHNIQUE: Helical CT of the abdomen and pelvis was performed prior to and following intravenous administration of 110 ml of Omnipaque 350. 3D VR and MIP images were reformatted on a separate wo rkstation and reviewed as part of this study. The study is slightly limited due to under distention of distal ureter, and mid and distal portions of the right ureter. COMPARISON: July 27, 2011 FINDINGS: Right kidney and ureter: No calculi, hyd ronephrosis or hydroureter. No renal lesions. No filling defect or abnormal w all thickening in the collecting system. Left kidney and ureter: No calculi, hydr onephrosis or hydroureter. No renal lesions. No filling defect or abnormal w all thickening in the collecting system. Urinary bladder: Normal, no calculi, or visible mass. Lower chest: Normal. Liver: Normal. Bile ducts: Nondilated. Gallbladder: No calcified gallstones. No rmal caliber wall. Pancreas: Normal. Spleen: Normal. Adrenals: Normal. Vasculature: No aneurysm. Lymph Nodes: No enlarged lymph nodes. Bowel: Nondilated, no wall thickening. Peritoneum and mesentery: No ascites, fr ee air, or loculated fluid collection. No mesenteric inflammation. Abdominal wall: Normal. Reproductive organs: Normal. Osseous structures: No suspicious lesion s. IMPRESSION Negative CT urogram. No etiology identif ied for hematuria. Ferdinand Michael Jr., MD IMG CT ORDERABLES Basic Metabolic Panel (non-fasting) (03/15/2017 2:36 PM EDT) athologist Signature Glucose Lvl 93 65 - 199 [facility] mg/dL [facility] Comment: Diabetes: >=200 mg/dL plus symp toms BUN 15 8 - 18 mg/dL [facility] Creatinine 0.82 0.70 - 1.20 mg/dL [facility] Comment: Please note that the pediatric reference intervals supplied above were not validated at [facility]. Results from pediatri c patients should be interpreted in conjunction to the patient's age, height and muscle mass. Sodium 137 135 - 145 mmol/L [facility] Potassium 4.1 3.5 - 5.0 mmol/L [facility] Comment: Please note: ??Patients with WBC >100,00 0 may have falsely elevated Potassium levels. ??For accurate Potassium quantif ication in these patients send serum separator tube (gold top) for subsequent determinations. ??Contact the Clinical Chemistry Laboratory if there are any qu estions. Chloride 101 98 - 107 mmol/L [facility] CO2 24 22 - 31 mmol/L [facility] Anion Gap 12 5 - 15 mmol/L [facility] Calcium 9.3 8.5 - 10.5 mg/dL [facility] Estimated GFR >60 >=60 [facility] Comment: This estimated GFR (eGFR) value was calc ulated using the MDRD equation which has been validated on patients between t he ages of 18 and 70. The MDRD should not be used to assess kidney function in patients < 18 years of age or in patients with extremes of body mass, or in patients with acute kidney failure. This value should be multiplied by 1.2 f or patients. For further information please copy and past e the following links into your internet browser. http://Nautit/DHnkdep [email or web address]://Nautit/DHMCnkf Specimen Anatomical Collection Method Collection Time Receive d Time (Source) Location / / Volume Laterality Blood specimen 03/15/2017 2:36 PM 017 2:47 (specimen) EDT PM EDT Resulting Agency Comment Spec In Lab Ferdinand Michael Jr., MD CHEMISTRY ORDERABLES Performing Organization Address City/[facility]/[place] [address] (ABNORMAL) Urine culture Clean Catch Urine (03/13/2017 5:50 PM EDT) [facility] gist Method Time Signature Urine Culture 1,000-9,000 ALBERT cfu/ml [facility] probable LABORATORY contaminant (A) Specimen (Source) Anatomical Collection Method Collection Time Re ceived Time Location / / Volume Laterality Urine specimen 03/13/2017 5:50 03/13/2017 5:50 obtained by clean PM EDT PM EDT catch procedure (specimen) Resulting Agency Comment Spec In Lab Ferdinand Michael Jr., MD MICROBIOLOGY - GENERAL ORDER MERLE Performing Organization Address City/[facility]/[place] [address] (ABNORMAL) Urinalysis with reflex Culture (03/13/2017 4:52 PM EDT) [facility] gist Method Time Signature Glucose UA Negative Negative [facility] mg/dL [facility] Protein UA Negative Negative [facility] mg/dL [facility] Bilirubin UA Negative Negative [facility] mg/dL [facility] Comment: Clinical correlation required for positi ve Urine Bilirubin results as false positive may occur with some drugs and d rug related products. If a false positive is suspected a serum total bili lloyd should be considered if clinically indicated. Urobilinogen UA Normal Normal mg/dL [facility] pH UA 6.0 5.0 - 8.0 [facility] Blood UA Small (A) Negative mg/dL [facility] Ketones UA Negative Negative mg/dL [facility] Nitrite UA Negative Negative [facility] Leukocytes UA Negative Negative [facility] LABORATORY Appearance UA Hazy (A) Clear [facility] Spec [place] UA 1.014 1.002 - 1.030 [facility] Color UA Yellow Yellow [facility] RBC UA <1 0 - 4 /HPF [facility] WBC UA 2 0 - 5 /HPF [facility] Bacteria UA Rare (A) None /HPF [facility] Squam Epith UA 1 <=4 /HPF [facility] Hyaline Cast UA 1 0 - 2 /LPF [facility] Culture Reflexed No [facility] Specimen (Source) Anatomical Collection Method Collection Time Re ceived Time Location / / Volume Laterality Urine specimen 03/13/2017 4:52 03/13/2017 5:34 obtained by clean PM EDT PM EDT catch procedure (specimen) Resulting Agency Comment Spec In Lab Ferdniand Michael Jr., MD URINE ORDERABLES Performing Organization Address City/State/[place] [address] documented in this encounter Visit Diagnoses Diagnosis Nephrolithiasis Calculus of kidney Nephrolithiasis Calculus of kidney documented in this encounter Care Teams Salon Designer Relationship Specialty Start Date End Date Suzie Mcintyre APRN PCP - General Family Medicine 02/28/17 06/26/17 documented as of this encounter
--- OUTSIDE RECORDS SUMMARY | 2022-03-23 02:27 | XMS_ITS | Encounter Summary ---
:1965 Author Organization [facility] [place] [address] Care Team Providers Name Role Phone Suzie Mcintyre APRN Primary Care Provider Encounter Details Date Type Department Care Team Description 03/15/2017 Laboratory Appointment Lab 3L [facility] [place] [address] Social History Tobacco Use Types Packs/Day [...] MD [facility] UROLOGY DEPT. [place], [place] [address] (Wo rk) 04/10/2022 Office Visit Urology Luis Michael MD [facility] UROLOGY DEPT. [place], [place] [address] (Wo rk) 07/13/2022 Appointment Radiology Maile Hinojosa MD [facility] ENDOCRINOLOGY [place], [place] [address] (Wo rk) 07/13/2022 Office Visit Endocrinology Maile Hinojosa MD [facility] ENDOCRINOLOGY [place], [place] [address] (Wo rk) documented as of this encounter Procedures Procedure Name Priority Date/Time Associated Diagnosis Comme nts BASIC METABOLIC STAT 03/15/2017 2:36 PM Nephrolithiasis Res ults for this PANEL (NON-FASTING) EDT procedur e are in the results section. documented in this encounter Results Basic Metabolic Panel (non-fasting) (03/15/2017 2:36 PM EDT) athologist Signature Glucose Lvl 93 65 - 199 [facility] mg/dL [facility] Comment: Diabetes: >=200 mg/dL plus symp toms BUN 15 8 - 18 mg/dL [facility] Creatinine 0.82 0.70 - 1.20 mg/dL [facility] Comment: Please note that the pediatric reference intervals supplied above were not validated at [facility]. Results from pediatri c patients should be interpreted in conjunction to the patient's age, height and muscle mass. Sodium 137 135 - 145 mmol/L [facility] Potassium 4.1 3.5 - 5.0 mmol/L [facility] Comment: Please note: ??Patients with WBC >100,00 0 may have falsely elevated Potassium levels. ??For accurate Potassium quantif ication in these patients send serum separator tube (gold top) for subsequent determinations. ??Contact the Clinical Chemistry Laboratory if there are any qu estions. Chloride 101 98 - 107 mmol/L [facility] CO2 24 22 - 31 mmol/L [facility] Anion Gap 12 5 - 15 mmol/L [facility] Calcium 9.3 8.5 - 10.5 mg/dL [facility] Estimated GFR >60 >=60 [facility] Comment: This estimated GFR [...] the following links into your internet browser. [email or web address] [email or web address] Specimen Anatomical Collection Method Collection Time Receive d Time (Source) Location / / Volume Laterality Blood specimen 03/15/2017 2:36 PM 017 2:47 (specimen) EDT PM EDT Resulting Agency Comment Spec In Lab Luis Michael Jr., MD CHEMISTRY ORDERABLES Performing Organization Address City/State/[place] [address] documented in this encounter Visit Diagnoses Diagnosis Nephrolithiasis Calculus of kidney documented in this encounter Care Teams Med Peds Relationship Specialty Start Date End Date Suzie Mcintyre APRN PCP - General Family Medicine 02/28/17 06/26/17 documented as of this encounter
--- OUTSIDE RECORDS SUMMARY | 2022-03-23 02:27 | XMS_ITS | Encounter Summary ---
:1965 Author Organization [facility] [place] [address] Care Team Providers Name Role Phone EdJanet mendez Isa GONCALVES Primary Care Provider Reason for Visit Reason Onset Date Comments Medication Refill 07/10/2018 Encounter Details Date Type Department Care Team Description 07/10/2018 Refill Obstetrics and Gynec ology at [facility] [place] [address] Social History Tobacco Use Types Packs/Day [...] MD [facility] UROLOGY DEPT. [place], [place] [address] (Rahul ascencio) 04/10/2022 Office Visit Urology Luis Michael MD [facility] UROLOGY DEPT. [place], [place] [address] (Rahul ascencio) 07/13/2022 Appointment Radiology Maile Hinojosa MD [facility] ENDOCRINOLOGY [place], [place] [address] (Wo rk) 07/13/2022 Office Visit Endocrinology Maile Hinojosa MD [facility] ENDOCRINOLOGY [place], [place] [address] (Wo rk) documented as of this encounter Visit Diagnoses Not on filedocumented in this encounter Care Teams Bicycle Courier Relationship Specialty Start Date End Date Janet Davey APRN PCP - General Family Medicine 06/23/18 07/12/20 [address] [place] [address] documented as of this encounter
--- OUTSIDE RECORDS SUMMARY | 2022-03-23 02:27 | XMS_ITS | Encounter Summary ---
:1965 Author Organization [facility] [place] [address] Care Team Providers Name Role Phone Suzie Mcintyre APRN Primary Care Provider Encounter Details Date Type Department Care Team Description 03/13/2017 Orders Only Urology at [facility] Luis Michael Jr., MD [facility] [place] [address] UROLOGY DEPT. [phone] [place], [place] [address] (Wo rk) Social History Tobacco [...] MD [facility] UROLOGY DEPT. [place], [place] [address] (Wo rk) 04/10/2022 Office Visit Urology Luis Michael MD [facility] UROLOGY DEPT. [place], [place] [address] (Wo rk) 07/13/2022 Appointment Radiology Maile Hinojosa MD [facility] ENDOCRINOLOGY [place], [place] [address] (Wo rk) 07/13/2022 Office Visit Endocrinology Maile Hinojosa MD [facility] ENDOCRINOLOGY [place], [place] [address] (Wo rk) documented as of this encounter Visit Diagnoses Not on filedocumented in this encounter Care Teams Emergency Room Specialist Relationship Specialty Start Date End Date Suzie Mcintyre APRN PCP - General Family Medicine 02/28/17 06/26/17 documented as of this encounter
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
--- OUTSIDE RECORDS SUMMARY | 2022-03-23 02:27 | XMS_ITS | Encounter Summary ---
:1965 Author Organization [facility] [place] [address] Care Team Providers Name Role Phone Monica Garcia MD Primary Care Provider Reason for Visit Reason Onset Date Comments Results 10/11/2016 Encounter Details Date Type Department Care Team Description 10/11/2016 Telephone Psychiatry and Behavioral Salvador Palmer, PhD Results Health at [facility]. [facility] [place] [address] [place] [address] [phone] (Wo rk) Social History Tobacco Use Types Packs/Day Years Used Date Never Smoker Smokeless Tobacco: Never Used Alcohol Use Standard Drinks/Week Comments No 0 (1 standard drink = 0.6 oz pure alcoho l) Sex Assigned at Date Recorded Female 01/29/2022 12:45 PM EDT documented as of this encounter Miscellaneous Notes Telephone Encounter - Salvador Palmer, PhD - 10/17/2016 9:53 AM EST CONFIDENTIAL FEEDBACK NOTE ON NEUROPSYCHOLOGICAL EVALUATION Patient Name: Stacy Albright MR#: [id number] Date of Evaluation: 09/12/2016 Age: 51 years Date of : Date of Feedback: 1965 10/11/2016 Referred By: Monica Garcia M.D. Mrs. Albright participated in a 30 minute telephone feedback session to discuss the results of her [facility] neuropsychological evaluation. Briefly, the pattern of performance is indicative of largely [...] factors is impacting on her current functioning. Findings and recommendations were reviewed. She was encouraged to discuss with her physician whethershe might benefit from a cognitive enhancing agent. It was also recommended that she return for neuropsychological re-evaluation in 12-18 months to assess for any changes in her cognition and to further inform differential diagnosis. Additional recommendations for maximizing her cognition were reviewed. The report is available in full on [facility]. Thank you for referring Mrs. Albright for evaluation. Please contact us at [phone] if we can be of further assistance. Christine Raza Psy.D. Salvador Palmer, Ph.D. Post-Doctoral Fellow Clinical Neuropsychologist Neuropsychology [employer] childhood associate This note was prepared by Christine Raza Psy.D., Postdoctoral Fellow in Neuropsychology, under the supervision of Salvador Palmer Ph.D. documented in this encounter Plan of Treatment Upcoming Encounters Date Type Specialty Care Team Description 04/10/2022 Appointment Radiology Luis Michael MD [facility] UROLOGY DEPT. [place], [place] [address] (Wo rk) 04/10/2022 Office Visit Urology Luis Michael MD [facility] UROLOGY DEPT. [place], [place] [address] (Wo rk) 07/13/2022 Appointment Radiology Maile Hinojosa MD [facility] ER ENDOCRINOLOGY [place], [place] [address] (Wo rk) 07/13/2022 Office Visit Endocrinology Maile Hinojosa MD [facility] ENDOCRINOLOGY [place], [place] [address] (Wo rk) documented as of this encounter Visit Diagnoses Not on filedocumented in this encounter Care Teams Special Equipment Technician Relationship Specialty Start Date End Date Monica Garcia MD PCP - General 01/06/13 02/27/17 [address] [place] [address] documented as of this encounter
--- OUTSIDE RECORDS SUMMARY | 2022-03-23 02:27 | XMS_ITS | Encounter Summary ---
:1965 Author Organization [facility] [address] Care Team Providers Name Role Phone Doreen Larios Primary Care Provider [phone] Encounter Details Date Type Department Care Team Description 06/11/2018 Hospital Encounter Ultrasound at [facility] Ferdinand Pennington Nephrolithiasis [facility] [place] [address] UROLOGY DEPT. [phone] [place], [place] [address] Social History Tobacco Use Types [...] (0.1 %) Aerosol, each nostril twice a [place] day SUMAtriptan (IMITREX) as needed for 1 04/13/2016 100 mg Tablet Migraine. hydrocortisone Apply topically as 0 07/25/2015 (WEST[place]ORT) 0.2 % Cream needed. multivitamin (THERAGRAN) Take 1 tablet by 0 tablet mouth daily. montelukast (SINGULAIR) Take 10 mg by mouth 0 10 mg tablet every morning. albuterol (ACCUNEB) 0.63 0 08/24/2010 mg/3 mL nebulizer solution valACYclovir (VALTREX) 0 01/27/2018 500 mg Tablet SYMBICORT 160-4.5 0 06/18/2017 019 mcg/actuation HFA Aerosol Inhaler LINZESS 145 mcg Capsule 145 mg as needed. 0 06/2102/12/2022 estradiol 0.1 mg/[address] 1 patch onto 8 patch 11 06/2007/10/2018 Patch Semiweekly the skin twice a week. linaCLOtide (Linzess) 72 Take 72 mcg by mouth. 0 02/12/2022 mcg Capsule One time per week levonorgestrel (MIRENA) 1 each by Intrauterine route once. Lot [id number] 0 05/01/2016 05/01/2021 20 mcg/24 hr (5 years) [id number] IUD omeprazole (PRILOSEC) 20 PRN 0 03/22/2016 08/06/2018 mg Capsule, Delayed Release(E.C.) NIFEdipine (ADALAT CC) Take 30 mg by mouth 0 08/06/2018 30 mg Tablet Sustained daily. Release cetirizine (ZYRTEC) 10 Take 10 mg by mouth 0 02/12/2022 mg tablet daily. tacrolimus (PROTOPIC) 1 Appl(s) Top Twice 0 08/2402/12/2022 0.1 % ointment daily KETOCONAZOLE (NIZORAL Apply topically. 0 08/24/20 10 02/12/2022 TOP) documented as of this encounter Plan of Treatment Upcoming Encounters Date Type Specialty Care Team Description 04/10/2022 Appointment Radiology Ferdinand Pennington MD [facility] UROLOGY DEPT. [place], [place] [address] (Wo rk) 04/10/2022 Office Visit Urology Ferdinand Pennington MD [facility] UROLOGY DEPT. [place], [place] [address] (Wo rk) 07/13/2022 Appointment Radiology Maile Hinojosa MD [facility] ENDOCRINOLOGY [place], [place] [address] (Wo rk) 07/13/2022 Office Visit Endocrinology Maile Hinojosa MD [facility] ENDOCRINOLOGY [place], [place] [address] (Wo rk) documented as of this encounter Procedures Procedure Name Priority Date/Time Associated Diagnosis Comme nts US RETROPERITONEAL Routine 06/11/2018 3:02 Nephrolithiasis Res ults for this COMPLETE PM EDT procedure are i n the results section. documented in this encounter Results US Retroperitoneal Complete (06/11/2018 3:02 PM EDT) Anatomical Region Laterality Modality Abdomen Ultrasound Specimen (Source) Anatomical Collection Method Collection Time Re ceived Time Location / / Volume Laterality 06/11/2018 3:00 PM EDT Impressions 06/11/2018 3:14 PM EDT ??No nephrolithiasis. New mild right pelvic caliectasis. Bladder is distended. Short segments of both distal ureters are visualized. This may be secondary to bladder volume or p eristalsis. ?Mallika valdez MD Electronically Signed Final Report ?? 03:13 pm Narrative 06/11/2018 3:14 PM EDT Renal ?(Signed Final 06/11/2018 03:13 pm) PATIENT INFO: ID #: ? [id number] ?: ??[birth year] (52 yrs) Name: ? JESSICAMALLIKA GTZ ?Visit Date: 06/11/2018 03:00 pm PERFORMED BY: Performed By: ? Keya Hedrick RDMS Attending: ?Mateo GILL, Mallika Ribera Referred By: ?FERDINAND PENNINGTON JR Location: ? [place] SERVICE(S) PROVIDED: ??URETRO - Retroperitoneal Complete - I [id number] ? [id number] INDICATIONS: ??h/o renal stones; eval interval laird e COMPARISON: Ultrasound: 03/13/18. CT scan: 02/26/17. RIGHT KIDNEY: Size (cm) ?L: ??10.1 Cortical Thickness: ?Normal Cortical Echogenicity: ?? Normal Hydronephrosis: ?Mild pelv iectasis LEFT KIDNEY: Size (cm) ?L: ??10.2 Cortical Thickness: ?Normal Cortical Echogenicity: ?? Normal Hydronephrosis: ?No sonogr aphic evidence URINARY BLADDER: Right Urinary Jet: Visualized Left Urinary Jet: ??Visualized Pre-void (cm) ? L: ??7.5 ? A P: ??5.6 ? TV: ??10.3 Vol (ml): ?226.5 Comment: ?Distended, normal contour Procedure Note Mallika Galindo MD - 06/11/2018 Renal (Signed Final 06/11/2018 03:13 pm ) PATIENT INFO: ID #: [id number] : [birth year] (52 y rs) Name: JESSICA GTZ Visit Date: 06/11 03:00 pm PERFORMED BY: Performed By: Chetna Hedrick RDMS Attending: Mallika Galindo MD Referred By: FERDINAND PENNINGTON Location: [place] SERVICE(S) PROVIDED: URETRO - Retroperitoneal Complete - [id number] INDICATIONS: h/o renal stones; eval interval change COMPARISON: Ultrasound: 03/13/18. CT scan: 02/26/17. RIGHT KIDNEY: Size (cm) L: 10.1 Cortical Thickness: Normal Cortical Echogenicity: Normal Hydronephrosis: Mild pelviectasis LEFT KIDNEY: Size (cm) L: 10.2 Cortical Thickness: Normal Cortical Echogenicity: Normal Hydronephrosis: No sonographic evidence URINARY BLADDER: Right Urinary Jet: Visualized Left Urinary Jet: Visualized Pre-void (cm) L: 7.5 AP: 5.6 TV: 10.3 Vol (ml): 226.5 Comment: Distended, normal contour IMPRESSION No nephrolithiasis. New mild right pelvic caliectasis. Bladder is distended. Short segments of both distal ureters are visualized. This may be secondary to bladder volume or p eristalsis. Mallika Galindo MD Electronically Signed Final Report 06/11 03:13 pm Ferdinand Pennington Jr., MD IMG US GEN ORDERABLES documented in this encounter Visit Diagnoses Diagnosis Nephrolithiasis Calculus of kidney documented in this encounter Care Teams Grease Buffer Relationship Specialty Start Date End Date Doreen Larios PA PCP - General Family Medicine 05/16/18 06/22/18 documented as of this encounter
--- OUTSIDE RECORDS SUMMARY | 2022-03-23 02:27 | XMS_ITS | Encounter Summary ---
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 examples include: o Reminder notes posted in highly visible locations may assist in allowing her to remain on task andrecall important information. o Limiting distractions (e.g., turning the television off) when she is attempting to focus her attention on a particular task is strongly recommended. o Managing one task at a time, rather than attempting to multitask, is recommended and will likely lead to fewer mistakes as well as decrease cognitive demand. o Breaking complex tasks down into simpler, more manageable components and ensuring that she is allowing herself adequate time to successfully complete tasks. o Asking for important information to be repeated if she does not feel she was able to acquire all of the pertinent details the first time. ?? Maintaining physical health includes proper nutrition, regular exercise, and adequate sleep. Regular physical activity can improve overall health, boost energy levels, and exercise has been shown toimprove cognition acutely and may delay age related cognitive decline. ??? Re-evaluation in 18-24 months, if there are concerns regarding further functional or cognitive decline, is recommended to continue to monitor any cognitive changes over time. Thank you for referring Ms. Albright for neuropsychological evaluation. If you would like additional information, please do not hesitate to contact us at . Sherine Hurst Psy.D. Jessica Shelton, Ph.D., ABPP Postdoctoral Fellow in Neuropsychology Board Certified Clinical Neuropsychologist Licensed Psychologist telegraph office manager A postdoctoral fellow in neuropsychology was involved in test administration, interpretation, and report development. The interpretation and integration of pertinent clinical information found in this report was directed and verified by the supervising neuropsychologist/licensed clinical psychologist. documented in this encounter Plan of Treatment Upcoming Encounters Date Type Specialty Care Team Description 04/10/2022 Appointment Radiology Luis Michael MD [facility] UROLOGY DEPT. ONLY, [place] 0375 (Wo rk) 04/10/2022 Office Visit Urology Luis Michael MD [facility] UROLOGY DEPT. ONLY, [place] 0375 (Wo rk) 07/13/2022 Appointment Maile Ríos MD [facility] ENDOCRINOLOGY ONLY, [place] 0375 (Wo rk) 07/13/2022 Office Visit Endocrinology Maile Hinojosa MD [facility] ENDOCRINOLOGY ONLY, [place] 0375 (Wo rk) documented as of this encounter Visit Diagnoses Diagnosis Memory loss Mild neurocognitive disorder documented in this encounter Care Teams Biologist Aide Relationship Specialty Start Date End Date Sarah Young APRN PCP - General Family Medicine 06/27/17 05/15/18 [address] [place] [address] documented as of this encounter
--- OUTSIDE RECORDS SUMMARY | 2022-03-23 02:27 | XMS_ITS | Encounter Summary ---
:1965 Author Organization [facility] [place] [address] Care Team Providers Name Role Phone Monica Garcia MD Primary Care Provider Reason for Visit Reason Comments Medication Refill Encounter Details Date Type Department Care Team Description 07/27/2016 Refill Obstetrics and Gynecology at [facility] Ida juan APRN [facility] [place] [facility] Victor Manuel cifuentes OBSTETRICS [place] [address] [place] [address] [phone] (Wo rk) Social History Tobacco Use Types [...] Appointment Radiology Luis Michael MD [facility] UROLOGY DEPT. [place], [place] [address] (Wo rk) 04/10/2022 Office Visit Urology Luis Michael MD [facility] UROLOGY DEPT. [place], [place] [address] (Wo rk) 07/13/2022 Appointment Radiology Maile Hinojosa MD [facility] ENDOCRINOLOGY [place], [place] 0375 (Wo rk) 07/13/2022 Office Visit Endocrinology Maile Hinojosa MD [facility]OCRINOLOGY [place], [place] [address] (Wo rk) documented as of this encounter Visit Diagnoses Not on filedocumented in this encounter Care Teams Food Service Associate Relationship Specialty Start Date End Date Monica Garcia MD PCP - General 01/06/13 02/27/17 [address] [place] [address] documented as of this encounter
--- OUTSIDE RECORDS SUMMARY | 2022-03-23 02:27 | XMS_ITS | Encounter Summary ---
:1965 Author Organization [facility] [place] [address] Care Team Providers Name Role Phone Suzie Mcintyre APRN Primary Care Provider Encounter Details Date Type Department Care Team Description 04/18/2017 Hospital Encounter Same Day Program at Luis Michael Nephrolithiasis Marley Painter Jr., MD [facility] [address] UROLOGY DEPT. [place], [place] [phone] Social History Tobacco Use Types Packs/Day Years Used Date Never Smoker Smokeless Tobacco: Never Used Alcohol Use Standard Drinks/Week Comments No 0 (1 standard drink = 0.6 oz pure alcoho l) Sex Assigned at Date Recorded Female 01/29/2022 12:45 PM EDT documented as of this encounter Last Filed Vital Signs Vital Sign Reading Time Taken Comments Blood Pressure 118/80 04/18/2017 2:45 PM EDT Pulse 60 04/18/2017 11:51 AM EDT Temperature 36.1 ??C (97 ??F) 04/18/2017 1:37 PM EDT Respiratory Rate 16 04/18/2017 2:17 PM EDT Oxygen Saturation 99% 04/18/2017 3:00 PM EDT Inhaled Oxygen Concentration - - Weight 65.8 kg (145 lb) 04/18/2017 11:51 AM EDT Height 172.7 cm (5' 8) 04/18/2017 11:51 AM EDT Body Mass Index 22.05 04/18/2017 11:51 AM EDT documented in this encounter Discharge Instructions Discharge InstructionsBelle Peñaloza RN - 04/18/2017 2:30 PM EDT POST ANESTHESIA INSTRUCTIONS Go home, rest, use caution on stairs. Change positions slowly. Do not smoke if you are alone. Diet light to regular as tolerated today. If nausea occurs start with clear liquids and progress slowly. No driving, operating machinery, alcoholic beverages and no important decisions for 24 hours. Monitor IV site for signs and symptoms of infection: increasing redness, swelling, foul drainage, ifoccurs contact M.D. Patients who have had endotrachial tubes (this tube, used by anesthesia department, is passed down your throat after you are asleep, to ensure safe air passage during your operation). A sore throat is normal due to the tube. Cold liquids or soothing lozenges will help ease the discomfort. The generalized muscle aches are due to the medication given to you just before the tube is inserted. As the medication wears off, you may develop muscle soreness, which usually goes away in 12-24 hours. Patient InstructionsNeil Perez MD - 04/18/2017 12:31 PM EDT DISCHARGE INSTRUCTIONS SUMMARY OF SURGERY Tiny lesion in bladder was resected and fulgurated completely. Tissue was sent to Pathology. CALL YOUR PHYSICIAN IF: ?? You have a fever greater than 101 degrees F within one month of your surgery. ?? You have diarrhea or vomiting for more than 24 hours, or stop having bowel movements or passing gas. ?? You have worsening pain, not controlled with your pain medication. ?? You are unable to empty your bladder and have pelvic/bladder pain. ?? You have any other acute change in your health status. MEDICATIONS You may use acetaminophen (Tylenol) for pain control. For baseline pain control: Take acetaminophen (Tylenol) 500-1000 mg every 6 hours as needed. You have been prescribed phenazopyridine to reduce bladder spasms for 2 days. Do not take aspirin or ibuprofen until your urine is completely clear of blood, which may take up toseven days. URINATION You have a Kay catheter in place that will be removed when you return to the clinic. If the catheter stops draining, please contact our office. You will likely have a small amount of blood in your urine for several days up to a week. This is normal and expected. However, if you are passing large amounts of blood clots or bright red blood, please contact our office. DRIVING RESTRICTIONS Do not operate a vehicle if you are too sore from surgery to enter or exit your vehicle comfortably,or if you are too sore to easily check your blind spot. No driving while using prescription pain medications. ACTIVITIES No restrictions. DIET No restrictions. CONTACT INFORMATION To contact your provider or change your appointment, please call the Urology clinic at during business hours or during off-hours. FOLLOW-UP APPOINTMENT Dr. Michael will call you with pathology results. You will follow-up with Dr. Michael in 6 months with an ultrasound. We will send you the date/time. documented in this encounter Medications at Time of Discharge Medication Sig Dispensed Refills Start Date End Date SUMAtriptan (IMITREX) as needed for 1 04/13/2016 100 mg Tablet Migraine. hydrocortisone Apply topically as 0 07/25/2015 (WESTCORT) 0.2 % Cream needed. multivitamin (THERAGRAN) Take 1 tablet by 0 tablet mouth daily. montelukast (SINGULAIR) Take 10 mg by mouth 0 10 mg tablet every morning. albuterol (ACCUNEB) 0.63 0 08/24/2010 mg/3 mL nebulizer solution donepezil (ARICEPT) 5 mg 5 mg daily. 0 01/27/2017 06/27/2017 Tablet phenazopyridine Take 1 tablet by 6 tablet 0 04/18/2017 (PYRIDIUM) 100 mg Tablet mouth 3 times daily for 2 days. linaCLOtide (Linzess) 72 Take 72 mcg by mouth. 0 02/12/2022 mcg Capsule One time per week donepezil (ARICEPT) 10 Take 10 mg by mouth 0 06/11/2018 mg Tablet every morning. estradiol 0.1 mg/24 hr apply 1 patch two 8 patch 11 201506/18/2017 Patch Semiweekly times a week as directed NASONEX 50 mcg/actuation 0 05/18/2016 06/11/2018 Warren, Non-Aerosol levonorgestrel (MIRENA) 1 each by Intrauterine route once. Lot [id number] 05/01/2016 05/01/2021 20 mcg/24 hr (5 years) [id number] IUD omeprazole (PRILOSEC) 20 PRN 0 03/22/2016 08/06/2018 mg Capsule, Delayed Release(E.C.) NIFEdipine (ADALAT CC) Take 30 mg by mouth 0 08/06/2018 30 mg Tablet Sustained daily. Release cetirizine (ZYRTEC) 10 Take 10 mg by mouth 0 02/12/2022 mg tablet daily. fluticasone-salmeterol Inhale 1 puff into 0 06/27/2017 (ADVAIR) 500-50 mcg/dose the lungs 2 times diskus inhaler daily as needed (winter time). tacrolimus (PROTOPIC) 1 Appl(s) Top Twice 0 08/2402/12/2022 0.1 % ointment daily KETOCONAZOLE (NIZORAL Apply topically. 0 08/24/20 10 02/12/2022 TOP) documented as of this encounter Progress Notes Belle Peñaloza RN - 04/18/2017 3:22 PM EDT Patient alert and oriented, vital signs stable. Reviewed discharge instructions; patient and her in-laws verbalized understanding. Copy of instruction sheet with contact numbers for questions/concerns with patient. Pain assessment documented. Patient escorted out of department via wheelchair with KAYLI Fisher. documented in this encounter H&P Notes Neil Perez MD - 04/18/2017 12:30 PM EDT Patient Name: Stacy Albright Age: 51 y.o. Date of : 1965 Attending Provider: Luis Michael Jr., MD Joannmegahn Albright is a 51 y.o. female with history of urolithiasis and recent hematuria with raised lesion near RIGHT ureteral orifice on diagnostic cystourethroscopy, presenting for planned biopsy of lesion. No recent changes to health status. MEDICAL AND SURGICAL HISTORY Past Medical History: Diagnosis Date ??? Abnormal glandular Papanicolaou smear of cervix age 15 ??? Asthma ??? Gastric acidity possible ulcer ??? History of nephrolithiasis ??? Migraines ??? Osteoporosis ??? Raynaud's disease ??? Vaginal infection PID at 15 Past Surgical History: Procedure Laterality Date ??? CREATED BY INTERFACE Cathy(MSUROL) Procedure Date: 01/16/2008 ??? KNEE SURGERY 03/01/14 Right knee; patella surgery ??? LITHOTRIPSY ALLERGIES Allergies Allergen Reactions ??? Grass Pollen-[place], Standard Other (See Comments) Runny nose, itching, sneezing ??? Mold Extracts Other (See Comments) Sneezing and runny nose MEDICATIONS No current facility-administered medications on file prior to encounter. Current Outpatient Prescriptions on File Prior to Encounter Medication Sig Dispense Refill ??? linaclotide (LINZESS) 72 mcg Capsule Take 72 mcg by mouth daily. ??? donepezil (ARICEPT) 10 mg Tablet Take 10 mg by mouth every morning. ??? estradiol 0.1 mg/24 hr Patch Semiweekly apply 1 patch two times a week as directed 8 patch 11 ??? NASONEX 50 mcg/actuation Warren, Non-Aerosol 0 ??? SUMAtriptan (IMITREX) 100 mg Tablet as needed for Migraine. 1 ??? levonorgestrel (MIRENA) 20 mcg/24 hr (5 years) IUD 1 each by Intrauterine route once. Lot [id number] ??? multivitamin (THERAGRAN) tablet Take 1 tablet by mouth daily. ??? omeprazole (PRILOSEC) 20 mg Capsule, Delayed [...] into the lungs 2 times daily as needed (winter time). ??? montelukast (SINGULAIR) 10 mg tablet Take 10 mg by mouth every morning. ??? albuterol (ACCUNEB) 0.63 mg/3 mL nebulizer solution ??? tacrolimus (PROTOPIC) 0.1 % ointment 1 Appl(s) Top Twice daily (Patient taking differently: PRN) ??? KETOCONAZOLE (NIZORAL TOP) PHYSICAL EXAM Temp: [36.7 ??C (98.1 ??F)] Heart Rate: [60] Resp: [16] BP: (128)/(77) SpO2: [100 %] Heart Rate from SPO2: -- GEN: Resting comfortably in bed, conversant, NAD. CHEST: Normal work of breathing. CV: Sinus rhythm. 2+ pulses bilaterally. ABD: Soft, non-tender, non-distended. EXTR: Moving spontaneously. SKIN: Warm and dry. NEURO: Alert and follows commands. ASSESSMENT / PLAN 51 y.o. female presenting for surgery as above. Patient appears fit for surgery. The details, alternatives, risks, and benefits of the procedure were reviewed, and the patient wishes to proceed. Informed consent has been obtained. All questions were answered to the patient's satisfaction. Proceed withsurgery. documented in this encounter Miscellaneous Notes Op Note - Neil Perez MD - 04/18/2017 1:31 PM EDT [facility] Operative Note Patient Name: Stacy Albright : [id number] MR#: [id number] Case Date: 04/18/2017 Surgeon: Surgeon(s) and Role: * Luis Michael Jr., MD - Primary * Neil Perez MD Preoperative diagnosis: small bladder lesion Postoperative diagnosis: small bladder lesion Procedure(s) (LRB): CYSTO, FULGURATION\BLADDER LESION\W\WO BX\LESS THAN 0.5CM (WRVU 4.05) (N/A) Findings: Tiny lesion medial to RIGHT ureteral orifice, completed resected and fulgurated, tissue sent to Pathology. Anesthesia: General Estimated Blood Loss: none Specimens removed during surgery: bladder lesion Drains: none Surgical Closure: no incision Disposition: awakened from anesthesia, extubated and taken to the recovery room in a stable condition, having suffered no apparent untoward event. Condition: doing well without problems (Please see the Surgical Encounter Summary for any Implant and Specimen details pertinent to this patient.) HPI/Surgical Indications: Stacy Albright is a 51 y.o. female with history of urolithiasis and recent hematuria with raised lesion near RIGHT ureteral orifice on diagnostic cystourethroscopy, presenting for planned biopsy of lesion. Procedure Description: The patient was identified in the pre-operative holding area. Consent was verified. The patient was taken to the operating room and placed supine on the operating table. General anesthesia was induced.The patient was then moved to the lithotomy position and prepped and draped in the usual sterile fashion. A timeout was performed involving all members of the OR team confirming the patient's identity and planned procedure. Preoperative antibiotics were administered. A 22 Fr rigid cystoscope was inserted into the bladder. Visual inspection of the bladder using 30- and 70-degree lenses revealed a tiny, 2 mm mucosal lesion medial to the RIGHT ureteral orifice and otherwise a grossly normal bladder without tumors, foreign bodies, or stones. The ureteral orifices werenoted to be in orthotopic position. [place] biopsy forceps were used to resect the lesion completely; tissue was sent to Pathology. The resection site was fulgurated completely. Efflux was noted fromthe RIGHT ureteral orifice at the end of the case. Inspection of the resection sites revealed no active hemorrhage. The cystoscope was removed. The patient tolerated the procedure well and was awakened from anesthesia with no adverse events. The patient was taken to the recovery area in stable condition. Dr. Michael, the attending surgeon, was present for the entire procedure. Infection Bundle used? N/A Plan: Dr. Michael to call with pathology results. RTC 6 mos with US prior. Brief Op Note - Neil Perez MD - 04/18/2017 1:30 PM EDT Brief Operative Note Patient Name: Stacy Albright : [id number] MR#: [id number] Case Date: 04/18/2017 Surgeon: Surgeon(s) and Role: * Luis Michael Jr., MD - Primary * Neil Perez MD Preoperative diagnosis: small bladder lesion Postoperative diagnosis: small bladder lesion Procedure(s) (LRB): CYSTO, FULGURATION\BLADDER LESION\W\WO BX\LESS THAN 0.5CM (WRVU 4.05) (N/A) Anesthesia: General Findings: Tiny lesion medial to RIGHT ureteral orifice, completed resected and fulgurated, tissue sent to Pathology. Complications: none Estimated Blood Loss: none Fluids: Intraprocedure Crystalloid Total None see anes report PRBCs: none (See Anesthesia Record/Report for Other Blood Products) Urine Output: (no blood products) Drains: none Disposition: awakened from anesthesia, extubated and taken to the recovery room in a stable condition, having suffered no apparent untoward event. Condition: doing well without problems (Please see the Surgical Encounter Summary for any Implant and Specimen details pertinent to this patient.) Infection Bundle used? N/A Associated attestation - Luis Michael Jr., MD - 04/18/2017 3:56 PM EDT I was present and I participated during the entire procedure. documented in this encounter Plan of Treatment Upcoming Encounters Date Type Specialty Care Team Description 04/10/2022 Appointment Radiology Luis Michael MD [facility] UROLOGY DEPT. [place], [place] [address] (Rahul ascencio) 04/10/2022 Office Visit Urology Luis Michael MD [facility] UROLOGY DEPT. [place], [place] [address] (Wo rk) 07/13/2022 Appointment Radiology Maile Hinojosa MD [facility] ENDOCRINOLOGY [place], [place] 0375 (Wo rk) 07/13/2022 Office Visit Endocrinology Maile Hinojosa MD [facility] ENDOCRINOLOGY [place], [place] [address] (Wo rk) documented as of this encounter Procedures Procedure Name Priority Date/Time Associated Diagnosis Comme nts SURGICAL PATHOLOGY Routine 04/18/2017 1:17 PM Res ults for this REPORT EDT procedure are i n the results section. SPECIMEN TO Routine 04/18/2017 1:17 PM Results f or this PATHOLOGY EDT procedure are i n the results section. CYSTO, Yes 04/18/2017 12:46 PM small bladder lesion FULGURATION\BLADDER EDT LESION\W\WO BX\LESS THAN 0.5CM (WRVU 4.05) documented in this encounter Results Surgical Pathology Report (04/18/2017 1:17 PM EDT) Component Value Ref Test Analysis Performed At [facility] Range Method Time Signature Surgical [id number] ? Location: LOCATED WITHIN [facility]; [facility]; A [facility] Report The signing pathologist has (i) examined the relevant preparation(s) for the [facility]ORIAL specimen(s) and (ii) rendered or confirmed the diagnosis(es) . HOSPITAL LAB[facility]ORY . ?Surgic al Pathology DIAGNOSIS Bladder lesion: ?? Fragment of benign urothelium and lamina propria ?? with focal atypia. CR-0 Electronically signed by: ??Luis Enrique GILL, Kole Braswell Verified: ??04/23/2017 ?Pathologist DISCUSSION Deeper levels were obtained. CLINICAL INFORMATION Specimen Submitted: A - Bladder lesion Clinical History: Small bladder lesion Clinical Diagnosis: Same SPECIMEN PROCESSING A - Labeled/Fixative: Bladder lesion, fresh. Quantity/Size: Single, 0.1 cm. Tissue Description: ??Soft, pink tissue fragment ??. Sections/Processing: (T1) ??sns Specimen (Source) Anatomical Collection Method Collection Time Re ceived Time Location / / Volume Laterality 04/18/2017 1:17 PM EDT Luis Michael Jr., MD PATHOLOGY/CYTOLOGY ORDERABLE S Performing Organization Address City/[facility]/[place] [address] Specimen to Pathology (surgical or derm) (04/18/2017 1:17 PM EDT) Specimen Anatomical Collection Method Collection Time Receive d Time (Source) Location / / Volume Laterality AP Specimen 04/18/2017 1:17 PM 7 1:17 EDT PM EDT Narrative [facility] - 04/18/2017 1:17 PM EDT Specimen requisition ordered. ??Separate Pathology report to follow Luis Michael Jr., MD PATHOLOGY/CYTOLOGY ORDERABLE S Performing Organization Address City/[facility] [place] [address] documented in this encounter Visit Diagnoses Diagnosis Nephrolithiasis Calculus of kidney documented in this encounter Administered Medications Inactive Administered Medications - up to 3 most recent administrations Medication Order MAR Action Action Date Dose Rate Site promethazine (PHENERGAN) Given 04/18/2017 1:46 PM EDT 6.25 mg injection 12.5 mg 12.5 mg, Intravenous, EVERY 30 MIN PRN, 2 doses, Starting on Shanta 04/18/17 at 1344, Until Shanta 04/18/17 at 1523, Nausea, VESICANT - Dilute with a minimum of 10 mL saline. LARGE VEIN only. Inject over 10 minutes into the farthest port of a running IV infusion. Remain with the patient and STOP infusion immediately if patient reports burning. Avoid extravasation. If multiple antiemetics are ordered, use ondansetron first and if ineffective use prochlorperazine second and if ineffective use promethazine., PACU Recovery, Routine documented in this encounter Active and Recently Administered Medications Times are shown in EDT. Scheduled Medication Order 04/16/2017 04/17/2017 04/18/2017 ceFAZolin (ANCEF) 2g in dextrose 5% 100 mL (COMPLETED) 1308 (Given - Provider: Romy Ballesteros MD) 2 g, Intravenous, ENGRAVER BLOCK TO O.R., 1 dos e, Shanta 04/18/17 at 0700, Administer over 30 Minutes, Indication for (Active or Suspected): Prophylaxis Continuous Medication Order 04/16/2017 04/17/2017 04/18/2017 lactated Ringers infusion 1,000 mL (CANCELED) 1247 (New Bag - Provider: Romy Ballesteros MD)1334 (Anesthesia Volume Adjustment - Provider: Romy Ballesteros MD) 1,000 mL, at 100 mL/hr, Intravenous, CON TINUOUS, Starting Shanta 04/18/17 at 1215, Until Shanta 04/18/17 at 1523, Day of Surgery (Day of Procedure) PRN Medication Order 04/16/2017 04/17/2017 04/18/2017 promethazine (PHENERGAN) injection 12.5 mg (CANCELED) 1346 (Given - Provider: Belle Peñaloza RN) 12.5 mg, Intravenous, EVERY 30 MIN PRN, 2 doses, Starting Shanta 04/18/17 at 1344, Until Shanta 04/18/17 at 1523, Nausea, VESICANT - Dilute with a minimum of 10 mL saline. LARGE VEIN only. Inject over 10 minute s into the farthest port of a running IV infusion. Remain with the patient and STOP infusion immediately if patient reports burning. Avoid extravasation. If multiple antiemetics are ordered, use onda nsetron first and if ineffective use pro chlorperazine second and if ineffective use promethazine., PACU Recovery, Routine documented in this encounter Care Teams Lead Software Test Engineer Relationship Specialty Start Date End Date Suzie Mcintyre APRN PCP - General Family Medicine 02/28/17 06/26/17 documented as of this encounter
--- OUTSIDE RECORDS SUMMARY | 2022-03-23 02:27 | XMS_ITS | Encounter Summary ---
:1965 Author Organization [facility] [place] [address] Care Team Providers Name Role Phone Suzie Mcintyre APRN Primary Care Provider Encounter Details Date Type Department Care Team Description 03/13/2017 Hospital Encounter [place] [facility] [place] [address] [place] [address] [place] [address] Social History Tobacco Use Types Packs/Day [...] 5 mg daily. 0 01/27/2017 06/27/2017 Tablet linaCLOtide (Linzess) 72 Take 72 mcg by mouth. 0 02/12/2022 mcg Capsule One time per week donepezil (ARICEPT) 10 Take 10 mg by mouth 0 06/11/2018 mg Tablet every morning. estradiol 0.1 mg/24 hr apply 1 patch two 8 patch 11 201506/18/2017 Patch Semiweekly times a week as directed NASONEX 50 mcg/actuation 0 05/18/2016 06/11/2018 [place], Non-Aerosol levonorgestrel (MIRENA) 1 each by Intrauterine route once. Lot [id number] 05/01/2016 05/01/2021 20 mcg/24 hr (5 years) [id number] IUD omeprazole (PRILOSEC) 20 PRN 0 03/22/2016 08/06/2018 mg Capsule, Delayed Release(E.C.) ondansetron (ZOFRAN) 4 take 1 tablet by 0 016 04/09/2017 mg Tablet mouth every 6 hours if needed NIFEdipine (ADALAT CC) Take 30 mg by [...] MD [facility] UROLOGY DEPT. [place], [place] [address] (Rahul ascencio) 04/10/2022 Office Visit Urology Luis Michael MD [facility] UROLOGY DEPT. [place], [place] [address] (Wo rk) 07/13/2022 Appointment Radiology Maile Hinojosa MD [facility] END[facility] [place], [place] [address] (Wo rk) 07/13/2022 Office Visit Endocrinology Maile Hinojosa MD [facility] ENDOCRINOLOGY [place], [place] [address] (Wo rk) documented as of this encounter Procedures Procedure Name Priority Date/Time Associated Diagnosis Comme nts XR ABDOMEN 1 VIEW Routine 03/13/2017 3:29 PM Nephrolithiasis R esults for this EDT procedure are i n the results section. documented in this encounter Results XR Abdomen 1 view (Generic) (03/13/2017 3:29 PM EDT) Anatomical Region Laterality Modality Abdomen N/A Digital Radiography Specimen (Source) Anatomical Location Collection Method / Collectio n Time Received Time / Laterality Volume Impressions 03/13/2017 3:34 PM EDT No radiopaque urinary tract calculus identified. Narrative 03/13/2017 3:34 PM EDT EXAMINATION: XR ABDOMEN 1 VIEW (GENERIC) CLINICAL HISTORY: stone history, eval cu rrent burden TECHNIQUE: Supine abdomen 03/13/2017 COMPARISON: None FINDINGS: No radiopaque calculus projects over eit her kidney or along the expected course of either ureter. No pelvic calcificatio ns are present. Normal bowel gas pattern with even distr ibution of air throughout small and large bowel. No dilated loops. No focal osseous lesion. An IUD projects over the pelvis. Surgical material projects over the inguinal regions bilaterally. Procedure Note Blanquita Jimenez MD - 03/13/2017Formatt ing of this note might be different from the original. EXAMINATION: XR ABDOMEN 1 VIEW (GENERIC) CLINICAL HISTORY: stone history, eval cu rrent burden TECHNIQUE: Supine abdomen 03/13/2017 COMPARISON: None FINDINGS: No radiopaque calculus projects over eit her kidney or along the expected course of either ureter. No pelvic calcificatio ns are present. Normal bowel gas pattern with even distr ibution of air throughout small and large bowel. No dilated loops. No focal osseous lesion. An IUD projects over the pelvis. Surgical material projects over the inguinal regions bilaterally. IMPRESSION No radiopaque urinary tract calculus alexandre ntified. Luis Michael Jr., MD IMG DX ORDERABLES documented in this encounter Visit Diagnoses Diagnosis Nephrolithiasis Calculus of kidney documented in this encounter Care Teams Emergency Medicine Nurse Practitioner Relationship Specialty Start Date End Date Suzie Mcintyre APRN PCP - General Family Medicine 02/28/17 06/26/17 documented as of this encounter
--- OUTSIDE RECORDS SUMMARY | 2022-03-23 02:27 | XMS_ITS | Encounter Summary ---
:1965 Author Organization [facility] [place] [address] Care Team Providers Name Role Phone Suzie Mcintyre APRN Primary Care Provider Encounter Details Date Type Department Care Team Description 06/18/2017 Orders Only Obstetrics and [place]necology [place] [address] Social History Tobacco Use Types Packs/Day [...] Michael MD [facility] UROLOGY DEPT. [place], [place] [address] (Wo rk) 04/10/2022 Office Visit Urology Luis Michael MD [facility] UROLOGY DEPT. [place], [place] [address] (Wo silva) 07/13/2022 Appointment Radiology Maile Hinojosa MD [facility] ENDOCRINOLOGY [place], [place] [address] (Wo rk) 07/13/2022 Office Visit Endocrinology Maile Hinojosa MD [facility] ENDOCRINOLOGY [place], [place] [address] (Wo rk) documented as of this encounter Visit Diagnoses Not on filedocumented in this encounter Care Teams Rosin Barrel Filler Relationship Specialty Start Date End Date Suzie Mcintyre APRN PCP - General Family Medicine 02/28/17 06/26/17 documented as of this encounter
--- OUTSIDE RECORDS SUMMARY | 2022-03-23 02:27 | XMS_ITS | Encounter Summary ---
:1965 Author Organization [place] [address] Care Team Providers Name Role Phone Sarah Young APRN Primary Care Provider [phone] Encounter Details Date Type Department Care Team Description 06/27/2017 Orders Only Endocrinology at [facility] Cuate Pearl MD Osteoporosis, [facility] DR osteoporosis type, [place] [address] ENDOCRINOLOGY unspecified [phone] [place], [place] [address] 6 pathological fracture [phone] presence (Work) Social History Tobacco Use Types [...] Description 04/10/2022 Appointment Radiology Luis Michael MD [facility] UROLOGY DEPT. [place], [place] [address] (Wo rk) 04/10/2022 Office Visit Urology Luis Michael MD [facility] UROLOGY DEPT. [place], [place] [address] (Wo rk) 07/13/2022 Appointment Radiology Maile Hinojosa MD [facility] ENDOCRINOLOGY [place], [place] [address] (Wo rk) 07/13/2022 Office Visit Endocrinology Maile Hinojosa MD [facility] ENDOCRINOLOGY [place], [place] [address] (Wo rk) documented as of this encounter Results Calcium (06/27/2017 3:22 PM EDT) athologist Signature Calcium 9.1 8.5 - 10.5 [facility] mg/dL [facility] Specimen Anatomical Collection Method Collection Time Receive d Time (Source) Location / / Volume Laterality Blood specimen 06/27/2017 3:22 PM 017 3:29 (specimen) EDT PM EDT Resulting Agency Comment Spec In Lab Cuate Hall MD CHEMISTRY ORDERABLES Performing Organization Address City/State/[place] [address] Vitamin D, 25-Hydroxy (06/27/2017 3:22 PM EDT) athologist Signature 25-OH Vit D 32 30 - 100 [facility] Total ng/mL [facility] Comment: Deficient <10 ng/mL Insufficient 10 to 29 ng/mL Sufficient 30 to 100 ng/mL Potential Intoxication >100 ng/mL According to the US National Osteoporosi s Foundation, Vitamin D concentrations >30 ng/mL are sufficient to protect bone health. ??The National Kidney Foundation has similarly stated that pat ients with Vitamin D concentrations <30ng/mL should be considered to be insu fficient or deficient. http://Integr[employer].com/nkf-guidelines http://[employer].com/nejm-VitD The [employer] Vitamin D Immunoassay detec ts both 25-OH Vitamin D2 and 25-OH Vitamin D3, but only a total Vitamin D c oncentration is reported. Specimen Anatomical Collection Method Collection Time Receive d Time (Source) Location / / Volume Laterality Blood specimen 06/27/2017 3:22 PM 017 7:52 (specimen) EDT AM EDT Resulting Agency Comment Spec In Lab Cuate Hall MD CHEMISTRY ORDERABLES Performing Organization Address City/State/[place] [address] PTH (06/27/2017 3:22 PM EDT) P athologist Signature PTH 41 15 - 65 [place] pg/mL [facility] Specimen Anatomical Collection Method Collection Time Receive d Time (Source) Location / / Volume Laterality Blood specimen 06/27/2017 3:22 PM 017 3:29 (specimen) EDT PM EDT Resulting Agency Comment Spec In Lab Cuate Hall MD CHEMISTRY ORDERABLES Performing Organization Address City/[facility]/[place] [address] documented in this encounter Visit Diagnoses Diagnosis Osteoporosis, unspecified osteoporosis t ype, unspecified pathological fracture presence documented in this encounter Care Teams Customer Service Technician Relationship Specialty Start Date End Date Sarah Young APRN PCP - General Family Medicine 06/27/17 05/15/18 [address] [place] [address] documented as of this encounter
--- OUTSIDE RECORDS SUMMARY | 2022-03-23 02:27 | XMS_ITS | Encounter Summary ---
:1965 Author Organization [facility] [place] [address] Care Team Providers Name Role Phone Suzie Mcintyre APRN Primary Care Provider Reason for Visit Reason Comments Hematuria Encounter Details Date Type Department Care Team Description 04/09/2017 Office Visit [place] [facility] [place] Microscopic hematuria [facility] [place] [address] UROLOGY DEPT. [phone] [place], [place] [address] Social History Tobacco Use Types Packs/Day Years Used Date Never Smoker Smokeless Tobacco: Never Used Alcohol Use Standard Drinks/Week Comments No 0 (1 standard drink = 0.6 oz pure alcoho l) Sex Assigned at Date Recorded Female 01/29/2022 12:45 PM EDT documented as of this encounter Procedure Notes Luis Michael Jr., MD - 04/09/2017 11:00 AM EDTAssociated Order(s): CYSTOSCOPY Pre-Procedure Diagnose(s): History of renal stone Preoperative Diagnosis: reported hematuria Postoperative Diagnosis: same Procedure: Flexible cystoscopy Surgeon: Fernanda Anesthesia: local with topical lidocaine Specimens: none Findings: tiny 1-2 mm raised lesion adjacent to right ureteral orifice Stacy Albright was taken to the cystoscopy room and prepped and draped by our urology nurse. Prophylactic antibiotic administration was confirmed. Topical viscous lidocaine gel was applied to the urethra for local anesthetic. A timeout was performed. Flexible cystoscopy was performed. The urethra was without abnormality. The bladder was entered and inspected. A small, overall smooth raised lesion was noted postero-medial to right ureteral orifice. Otherwise, no focal mucosal abnormality was seen. bilateral ureteral orifices were identified, effluxing clear urine. She tolerated the procedure well. We reviewed options; she wishes to proceed with cystoscopic biopsy under anesthesia. This will be scheduled for her. Informed consent reviewed. documented in this encounter Plan of Treatment Upcoming Encounters Date Type Specialty Care Team Description 04/10/2022 Appointment Radiology Luis Michael MD [facility] UROLOGY DEPT. [place], [place] [address] (Wo rk) 04/10/2022 Office Visit Urology Luis Michael MD [facility] UROLOGY DEPT. [place], [place] [address] (Rahul ascencio) 07/13/2022 Appointment Radiology Maile Hinojosa MD [facility] ENDOCRINOLOGY [place], [place] [address] (Rahul ascencio) 07/13/2022 Office Visit Endocrinology Maile Hinojosa MD [facility] ENDOCRINOLOGY [place], [place] [address] (Rahul ascencio) documented as of this encounter Procedures Procedure Name Priority Date/Time Associated Diagnosis Comme nts CYSTOSCOPY Routine 04/09/2017 10:36 AM History of renal Resu lts for this EDT stone procedure are i n the results section . documented in this encounter Visit Diagnoses Diagnosis Microscopic hematuria documented in this encounter Care Teams Youth Development Specialist Relationship Specialty Start Date End Date Suzie Mcintyre APRN PCP - General Family Medicine 02/28/17 06/26/17 documented as of this encounter
--- OUTSIDE RECORDS SUMMARY | 2022-03-23 02:27 | XMS_ITS | Encounter Summary ---
:1965 Author Organization [facility] [place] [address] Care Team Providers Name Role Phone Sarah Young APRN Primary Care Provider [phone] Encounter Details Date Type Department Care Team Description 10/11/2017 Telephone Psychiatry and Behavioral Jessica Miranda, PhD Health at [facility] NEUROPSYCHOLOGY DEPT. [facility] [place] [address] [place] [address] [phone] (Wo rk) Social History Tobacco Use Types Packs/Day Years Used Date Never Smoker Smokeless Tobacco: Never Used Alcohol Use Standard Drinks/Week Comments No 0 (1 standard drink = 0.6 oz pure alcoho l) Sex Assigned at Date Recorded Female 01/29/2022 12:45 PM EDT documented as of this encounter Miscellaneous Notes Telephone Encounter - Jessica Shelton, PhD - 10/11/2017 12:44 PM EST CONFIDENTIAL FEEDBACK NOTE ON NEUROPSYCHOLOGICAL RE-EVALUATION Stacy Albright participated in a 15-minute telephone feedback session to discuss the results of her second [facility] neuropsychological evaluation. Briefly, the results revealed generally intact neuropsychological functioning. Performance on measures of verbal and visual learning and memory was variable. She evidenced weakness in retrieval and recognition of noncontextual verbal information, with intact contextual learning and memory. Visual learning and retrieval was variable, with improvement in performance with more time for encoding, with intact recognition memory. There was evidence that performancemight have been impacted by the use of less efficient learning strategies (i.e., piecemeal copy of acomplex figure, stronger reliance on serial position on a verbal list learning task). Performance was otherwise within normal limits for measures of basic attention, executive functions, processing speed, receptive and expressive language abilities, visuospatial skills, and bilateral motor speed and co ordination. Relative to the prior neuropsychological evaluation on 09/12/2016, she demonstrated generally stable performance, with some areas of improvement and other areas of subtle decline (see Neuropsychological Report for details). During the feedback session, Ms. Albright indicated one of her medications has been changed (was unsure of what her new medication was) and that melatonin has been more effective with the change althoughher memory feels slightly worse. The results of the evaluation were reviewed and all questions were answered. The report is available in eD. Thank you for referring Ms. Albright for evaluation. Please contact us at [phone] if we can be of further assistance. Sherine Hurst Psy.D. Jessica Shelton, Ph.D., ABPP Postdoctoral Fellow in Neuropsychology Board Certified in Clinical Neuropsychology hull line crew member Director, Neuropsychology Program documented in this encounter Plan of Treatment Upcoming Encounters Date Type Specialty Care Team Description 04/10/2022 Appointment Radiology Luis Michael MD [facility] UROLOGY DEPT. [place], [place] [address] ([facility]) 04/10/2022 Office Visit Urology Luis Michael MD [facility] UROLOGY DEPT. [place], [place] [address] ( silva) 07/13/2022 Appointment Radiology Maile Hinojosa MD [facility] ENDOCRINOLOGY [place], [place] [address] ( silva) 07/13/2022 Office Visit Endocrinology Maile Hinojosa MD [facility] ENDOCRINOLOGY [place], [place] [address] (Wo rk) documented as of this encounter Visit Diagnoses Not on filedocumented in this encounter Care Teams Resident Assistant Relationship Specialty Start Date End Date Sarah Young APRN PCP - General Family Medicine 06/27/17 05/15/18 [address] [place] [address] documented as of this encounter
--- OUTSIDE RECORDS SUMMARY | 2022-03-23 02:27 | XMS_ITS | Encounter Summary ---
:1965 Author Organization [facility] Address [address] [place] [address] Care Team Providers Name Role Phone Petar Janet Moss COMMUNITY EDUCATION COORDINATOR Primary Care Provider Reason for Visit Reason Comments Annual Exam Encounter Details Date Type Department Care Team Description 08/06/2018 Office Visit Obstetrics and Ida Ron, Encounter for Gynecology at [facility] COMMUNITY EDUCATION COORDINATOR gynecological [facility] [address] on [address] abnormal finding [place], [place] OBSTETRICS & [address] GYNECOLOGY [phone] [place], [place] [address] Social History Tobacco Use Types Packs/Day Years Used Date Never Smoker Smokeless Tobacco: Never Used Alcohol Use Standard Drinks/Week Comments No 0 (1 standard drink = 0.6 oz pure alcoho l) Sex Assigned at Date Recorded Female 01/29/2022 12:45 PM EDT documented as of this encounter Last Filed Vital Signs Vital Sign Reading Time Taken Comments Blood Pressure 119/70 08/06/2018 4:01 PM EST Pulse 69 08/06/2018 4:01 PM EST Temperature 36.7 ??C (98.1 ??F) 08/06/2018 4:01 PM EST Respiratory Rate - - Oxygen Saturation 100% 08/06/2018 4:01 PM EST Inhaled Oxygen Concentration - - Weight 72.3 kg (159 lb 4.8 oz) 08/06/2018 4:01 PM EST Height 172 cm (5' 7.72) 08/06/2018 4:01 PM EST Body Mass Index 24.42 08/06/2018 4:01 PM EST documented in this encounter Progress Notes Maria Teresa Garcia LPN - 08/06/2018 3:40 PM EST Domestic Violence Screener 08/06/2018 Hit,kicked,punched or hurt in past year No Safe in current relationship Yes Partner from previous relationship making you feel unsafe No Emotionally hurt and/or controlled by someone No Unwanted sexual contact No MARIA TERESA GARCIA LPN Ida Ron APRN - 08/06/2018 3:40 PM EST Reason for visit: Annual production sound mixer exam ROS: PRODUCT DEVELOPMENT SCIENTIST: Suha 2015 for menstrual control. Rare spotting. Some mood changes, she does have the estradiol patches which helps. She needs this refilled. No vulvar itching, burning, or pain with intercourse. Past Medical History: Diagnosis Date ??? Abnormal glandular Papanicolaou smear of cervix age 15 ??? Asthma ??? Gastric acidity possible ulcer ??? History of nephrolithiasis ??? Memory difficulties 2018 ??? Migraines ??? Osteoporosis ??? Raynaud's disease Past Surgical History: Procedure Laterality Date ??? CREATED BY INTERFACE [employer]) Procedure Date: 01/16/2008 ??? KNEE SURGERY 03/01/14 Right knee; patella surgery ??? LITHOTRIPSY ? ? PRO CYSTOURETHROSCOPY, FULGUR <.5CM LESN N/A 04/18/2017 CYSTO, FULGURATION\BLADDER LESION\W\WO BX\LESS THAN 0.5CM (WRVU 4.05) performed by Luis Michael Jr., MD at [facility] MAIN OR PRODUCT DEVELOPMENT SCIENTIST History: Pt is a 52??year old G 4 P 3 female. Last pap 04/2016 WNL, neg HPV; hx abnormal pap at age 15 that required cryotherapy. Hx PID at age 15; no other hx of STD's/STI's. Last mammogram: 07/2017 neg. DEXA scan done in 06/27/17 femoral neck [...] ??? Highest education level: Not on file Social Needs ??? Financial resource strain: Not on file ??? Food insecurity - worry: Not on file ??? Food insecurity - inability: Not on file ??? Transportation needs - medical: Not on file ??? Transportation needs - non-medical: Not on file Occupational History ??? Not [...] a new home in their town of [place], [place]. 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 Eats relatively healthy with fruits, vegetables, yogurt, and milk; minimal meat. Eats 3 meals per day, does not drink tea or coffee, and occasionally drinks soda.Her youngest is 18 yrs old, in college in [place]. The other two are out of the house. She is veryinvolved with her sons family that has lots of psycho social issues, her sons is bipolar, back issue, they have one child together, she had 3 in a previous relationship. She has not gone for counseling. Food Service Aide Screener 08/06/2018 Hit,kicked,punched or hurt in past year No Safe in current relationship Yes Partner from previous relationship making you feel unsafe No Emotionally hurt and/or controlled by someone No Unwanted sexual contact No Outpatient Medications Marked as Taking for the 08/06/18 encounter (Office Visit) with AsafBebe APRN Medication Sig Dispense Refill ??? estradiol 0.1 mg/[address] 1 patch onto the skin twice a week. 8 patch 3 ??? galantamine (RAZADYNE) 12 mg Tablet 0 ??? memantine (NAMENDA) 5 mg Tablet 0 ??? valACYclovir (VALTREX) 500 mg Tablet ??? azelastine (ASTELIN) 137 mcg (0.1 %) Aerosol, [place] instill 1 spray into each nostril twice a day 0 ??? SYMBICORT 160-4.5 mcg/actuation HFA Aerosol Inhaler 0 ??? LINZESS 145 mcg Capsule 145 mg every other day. 0 ??? linaclotide (LINZESS) 72 mcg Capsule Take 72 mcg by mouth every other day. ??? SUMAtriptan (IMITREX) 100 mg Tablet as needed for Migraine. 1 ??? levonorgestrel (MIRENA) 20 mcg/24 hr (5 years) IUD 1 each by Intrauterine route once. Lot [id number] ??? hydrocortisone (WESTCORT) 0.2 % Cream Apply topically as needed. ??? cetirizine (ZYRTEC) 10 mg tablet Take 10 mg by mouth daily. ??? multivitamin (THERAGRAN) tablet Take 1 tablet by mouth daily. ??? montelukast (SINGULAIR) 10 mg tablet Take 10 mg by mouth every morning. ??? tacrolimus (PROTOPIC) 0.1 % ointment 1 Appl(s) Top Twice daily ??? KETOCONAZOLE (NIZORAL TOP) Allergies as of 08/06/2018 - Review Complete 08/06/2018 Allergen Reaction Noted ??? Grass pollen-bermuda, standard Other (See Comments) 12/07/2010 ??? Mold extracts Other (See Comments) 03/31/2013 BP 119/70 (BP Location (NBP): Right arm, Patient Position: Sitting, BP Cuff Sizes: Adult (25-34 cm)) Pulse 69 Temp 36.7 ??C (98.1 ??F) (Oral) Ht 172 cm (5' 7.72) Wt 72.3 kg (159 lb 4.8 oz) SpO2 100% BMI 24.42 kg/m?? PHYSICAL EXAM: Breasts- Without suspicious masses, puckers or D/C Abdomen- Without masses or tenderness Pelvic exam- [] External Genitalia- pink, without lesions Urethral meatus- without masses or lesions Vagina- pink, no abn d/c Cervix- pink, no suspicious lesions, normal d/c, Cervix visualized, IUD string visualized Uterus- a/v, without masses, normal size and contour Adenexa- without masses Rectovaginal exam- confirms, good tone, no hemorrhoids A: Unremarkable production sound mixer exam P: F/U one yr at which time will check FSH re: menopause documented in this encounter Plan of Treatment Upcoming Encounters Date Type Specialty Care Team Description 04/10/2022 Appointment Radiology Luis Michael MD [facility] UROLOGY DEPT. [place], [place] [address] (Wo rk) 04/10/2022 Office Visit Urology Luis Michael MD [facility] UROLOGY DEPT. [place], [place] [address] (Wo rk) 07/13/2022 Appointment Radiology Maile Hinojosa MD [facility] ENDOCRINOLOGY [place], [place] [address] (Wo rk) 07/13/2022 Office Visit Endocrinology Maile Hinojosa MD [facility] ENDOCRINOLOGY [place], [place] [address] (Wo rk) documented as of this encounter Visit Diagnoses Diagnosis Encounter for gynecological examination without abnormal finding Routine gynecological examination documented in this encounter Care Teams Dock Boss Relationship Specialty Start Date End Date Janet Davey APRN PCP - General Family Medicine 06/23/18 07/12/20 Nickolas GARCIA [address] [place] [address] documented as of this encounter
--- OUTSIDE RECORDS SUMMARY | 2022-03-23 02:27 | XMS_ITS | Encounter Summary ---
:1965 Author Organization [facility] [place] [address] Care Team Providers Name Role Phone Suzie Mcintyre APRN Primary Care Provider Reason for Referral Diagnostic Test (Routine) - Closed Specialty Diagnoses / Procedures Referred By Contact Refer red To Contact Radiology Diagnoses Nephrolithiasis Luis Michael Jr., MD [facility] Rad Ct Scan Procedures CT Urogram [facility] [place] [address] [place] [address] Referral ID Status Reason Start Date Expiration Date Visits V isits Requested Authorized [id number] Closed Specialty 03/14/2017 05/12/2017 1 1 Service Requested Reason for Visit Diagnostic Test (Routine) - Closed Specialty Diagnoses / Procedures Referred By Contact Refer red To Contact Radiology Diagnoses Nephrolithiasis Luis Michael Jr., MD [facility] Rad Ct Scan Procedures CT Urogram [facility] [place] [address] [place] [address] Referral ID Status Reason Start Date Expiration Date Visits V isits Requested Authorized [id number] Closed Specialty 03/14/2017 05/12/2017 1 1 Service Requested Encounter Details Date Type Department Care Team Description 03/15/[address] [place] [facility] [place] Michael Nephrolithiasis [facility] [place] [address] UROLOGY DEPT. [phone] [place], [place] [address] Social History Tobacco Use Types [...] directed NASONEX 50 mcg/actuation 0 05/18/2016 06/11/2018 [place], Non-Aerosol levonorgestrel (MIRENA) 1 each by Intrauterine route once. Lot [id number] 8ac 0 05/01/2016 05/01/2021 20 mcg/24 hr (5 years) [id number] IUD omeprazole (PRILOSEC) 20 PRN 0 03/22/2016 [...] 02/12/2022 TOP) documented as of this encounter Miscellaneous Notes Ancillary Services Notes - Deshaun Patel - 03/15/2017 3:41 PM EDT Images from the original note were not included. You had a CT Scan on @ Per Policy it is important that you stop taking your Metformin (Diabetic Medication) for 2 days following the injection of IV iodinated contrast. You can start taking your Metformin on . If you have any questions or concerns, contact your primary care provider. Also drink plenty of water following your CT Scan to help clear the IV Iodinated contrast out of your body. Thank You, [facility] CT Scan Dept [facility] INTERVENTIONAL RADIOLOGY CT UROGRAM PROCEDURE NAME: JESSICA ALBRIGHT ADDRESS: [address] [place] [address] HOME PHONE: [phone] (home) [phone] (work) MOBILE NUMBER: Telephone Information: REFERRING PROVIDER: Luis Michael Jr. Allergies Allergen Reactions ??? Grass Pollen-[place], Standard Other (See Comments) Runny nose, itching, sneezing ??? Mold Extracts Other (See Comments) Sneezing and runny nose PERTINENT PMH: Patient Active Problem List Diagnosis Code ??? Asthma J45.909 ??? Nephrolithiasis N20.0 ??? Raynaud's disease I73.00 ??? Migraines G43.909 ??? Perimenopause N95.1 ??? Pap smear for cervical cancer screening Z12.4 MED'S: Prior to Admission medications Medication Sig Start Date End Date Taking? Authorizing Provider linaclotide (LINZESS) 72 mcg Capsule Take 72 mcg by mouth daily. PROVIDER, HISTORICAL donepezil (ARICEPT) 10 mg Tablet Take 10 mg by mouth every morning. PROVIDER, HISTORICAL estradiol 0.1 mg/24 hr Patch Semiweekly apply 1 patch two times a week as directed 07/27/16 Ida Ron APRN NASONEX 50 mcg/actuation [place], Non-Aerosol 05/18/16 PROVIDER, HISTORICAL SUMAtriptan (IMITREX) 100 mg Tablet as needed for Migraine. 04/13/16 PROVIDER, HISTORICAL levonorgestrel (MIRENA) 20 mcg/24 hr (5 years) IUD 1 each by Intrauterine route once. Lot [id number] 05/01/16 05/01/21 PROVIDER, HISTORICAL omeprazole (PRILOSEC) 20 mg Capsule, Delayed Release(E.C.) PRN 03/22/16 PROVIDER, HISTORICAL ondansetron (ZOFRAN) 4 mg Tablet take 1 tablet by mouth every 6 hours if needed 03/20/16 PROVIDER, HISTORICAL hydrocortisone (WESTCORT) 0.2 % Cream Apply topically as needed. 07/25/15 PROVIDER, HISTORICAL NIFEdipine (ADALAT CC) 30 mg Tablet Sustained Release Take 30 mg by mouth daily. PROVIDER, HISTORICAL cetirizine (ZYRTEC) 10 mg tablet Take 10 mg by mouth daily. PROVIDER, HISTORICAL fluticasone-salmeterol (ADVAIR) 500-50 mcg/dose diskus inhaler Inhale 1 puff into the lungs 2 times daily as needed (winter time). PROVIDER, HISTORICAL multivitamin (THERAGRAN) tablet Take 1 tablet by mouth daily. PROVIDER, HISTORICAL montelukast (SINGULAIR) 10 mg tablet Take 10 mg by mouth every morning. 12/07/10 PROVIDER, HISTORICAL albuterol (ACCUNEB) 0.63 mg/3 mL nebulizer solution 08/24/10 tacrolimus (PROTOPIC) 0.1 % ointment 1 Appl(s) Top Twice daily Patient taking differently: PRN 08/24/10 KETOCONAZOLE (NIZORAL TOP) 08/24/10 PIV PLACED: (site) MED ORDERED: LASIX 10 MG IV GIVEN @: INITIAL VITAL SIGNS: 110/70 POST VITAL SIGNS: DISCHARGE TIME: documented in this encounter Plan of Treatment Upcoming Encounters Date Type Specialty Care Team Description 04/10/2022 Appointment Radiology Luis Michael MD [facility] UROLOGY DEPT. [place], [place] [address] (Wo rk) 04/10/2022 Office Visit Urology Luis Michael MD [facility] UROLOGY DEPT. [place], [place] [address] (Wo rk) 07/13/2022 Appointment Radiology Maile Hinojosa MD [facility] ENDOCRINOLOGY [place], [place] [address] (Wo rk) 07/13/2022 Office Visit Endocrinology Maile Hinojosa MD [facility] ENDOCRINOLOGY [place], [place] [address] (Wo rk) documented as of this encounter Procedures Procedure Name Priority Date/Time Associated Diagnosis Comme nts CT SCAN UROLOGY Routine 03/15/2017 4:10 PM Nephrolithiasis Res ults for this EDT procedure are i n [...] urogram. No etiology identif ied for hematuria. Luis Michael Jr., MD IMG CT ORDERABLES documented in this encounter Visit Diagnoses Diagnosis Nephrolithiasis Calculus of kidney documented in this encounter Administered Medications Inactive Administered Medications - up to 3 most recent administrations Medication Order MAR Action Action Date Dose Rate Site furosemide (LASIX) 10 mg/mL injection 1 dose, Starting on Sat03/15/17 at 1551, Until Sat03/15/17 at 1600, SUKH MENDEZ: cabinet override furosemide (LASIX) injection 10 mg Given 03/15/2017 4:00 PM EDT 10 mg 10 mg, Intravenous, ONCE, 1 dose, On Sat03/15/17 at 0845, Give in radiology., Routine iohexol (OMNIPAQUE) 350 mg/mL solution 110 Given 03/15/2017 3:46 PM EDT 110 mLs mL 110 mL, Intravenous, ONCE PRN, 1 dose, Starting on Sat03/15/17 at 1546, Until Sat03/15/17 at 1546, Per Protocol, Routine documented in this encounter Care Teams Educational Institution President Relationship Specialty Start Date End Date Suzie Mcintyre APRN PCP - General Family Medicine 02/28/17 06/26/17 documented as of this encounter
--- OUTSIDE RECORDS SUMMARY | 2022-03-23 02:27 | XMS_ITS | Encounter Summary ---
:1965 Author Organization [facility] Address [address] [place] [address] Care Team Providers Name Role Phone Sarah Young APRN Primary Care Provider [phone] Encounter Details Date Type Department Care Team Description 06/27/2017 Hospital Encounter [place]Ray at [facility] [place], Osteoporosis, [address] [place] unspecified [place], [place] [facility] osteoporosis [place], [id number] funes [phone] ENDOCRINOLOGY pathological fracture [place] presence [id number] Social History Tobacco Use Types Packs/Day Years Used Date Never Smoker Smokeless Tobacco: Never Used Alcohol Use Standard Drinks/Week Comments No 0 (1 standard drink = 0.6 oz pure alcoho l) Sex Assigned at Date Recorded Female 01/29/2022 12:45 PM EDT documented as of this encounter Medications at Time of Discharge Medication Sig Dispensed Refills Start Date End Date azelastine (ASTELIN) 137 instill 1 spray into 0 1 mcg (0.1 %) Aerosol, each nostril twice a [place] day SUMAtriptan (IMITREX) as needed for 1 04/13/2016 100 mg Tablet Migraine. hydrocortisone Apply topically as 0 07/25/2015 (WESTCORT) 0.2 % Cream needed. multivitamin (THERAGRAN) Take 1 tablet by 0 tablet mouth daily. montelukast (SINGULAIR) Take 10 mg by mouth 0 10 mg tablet every morning. albuterol (ACCUNEB) 0.63 0 08/24/2010 mg/3 mL nebulizer solution SYMBICORT 160-4.5 0 06/18/2017 019 mcg/actuation HFA [...] mouth 0 06/11/2018 mg Tablet every morning. NASONEX 50 mcg/actuation 0 05/18/2016 06/11/2018 [place], Non-Aerosol levonorgestrel (MIRENA) 1 each by Intrauterine route once. Lot tu01 8ac 0 05/01/2016 05/01/2021 20 mcg/24 hr (5 years) [id number] IUD omeprazole (PRILOSEC) 20 PRN 0 03/22/2016 [...] Description 04/10/2022 Appointment Radiology Luis Michael MD [facility] UROLOGY DEPT. [place], [place] [address] (Wo rk) 04/10/2022 Office Visit Urology Luis Michael MD [facility] UROLOGY DEPT. [place] [address] (Wo rk) 07/13/2022 Appointment Radiology Maile Hinojosa MD [facility] ENDOCRINOLOGY [place], [place] [address] (Wo rk) 07/13/2022 Office Visit Endocrinology Maile Hinojosa MD [facility] ENDOCRINOLOGY [place], [place] [address] (Wo rk) documented as of this encounter Procedures Procedure Name Priority Date/Time Associated Diagnosis Comme nts DXA CENTRAL SPINE, Routine 06/27/2017 1:19 PM Osteoporosis, Re sults for this HIP, AND/OR WHOLE EDT unspecified procedure are in BODY (GENERIC) osteoporosis type, the res ults unspecified section. pathological fracture presence documented in this encounter Results DXA Central-Spine, Hip, And/Or Whole Body (Generic) (06/27/2017 1:19 PM EDT) Anatomical Region Laterality Modality C-spine, Hip N/A Other Specimen (Source) Anatomical Location Collection Method / Collectio n Time Received Time / Laterality Volume Impressions 06/27/2017 4:50 PM EDT * ??Bone mineral density is stable. * ??Osteoporosis by WHO diagnostic crite abby. Estimating Fracture Risk: ? The relationship between bone mineral de nsity [...] independent, risk factors in addition to BMD. ? The World Health Organization (WHO) has developed a fracture risk prediction tool that calculates a ten-year risk of major osteoporotic fracture based on femoral neck bone density measurements a nd nine clinical risk factors for individuals who have not been treated fo r 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 This is available through an interactive web-based CiDRAa ce (http://www.shef.ac.uk/FRAX/) and can be used to [...] website which you are encouraged to review. ? DXA data sheets with BMD measurements an d plots are available in [facility] under the imaging tab. Paper copies will be sent to providers without [facility] access. If you have received this report without th e data sheet and do not have access to [facility], please contact Radiology Transcrip tion at [phone] Saturday thru Saturday 8am-4pm. Narrative 06/27/2017 4:50 PM EDT EXAMINATION: DXA CENTRAL-SPINE, HIP, AND/OR WHOLE BODY (GENERIC) CLINICAL HISTORY: osteoporosis TECHNIQUE: Scans were acquired at the esau mbar spine and left hip. Densitometer: Hologic Discovery A FINDINGS: Lowest T-score at the diagnost ic region of interest: T-score: -2.6, TENZIN: Femoral neck, WHO di agnosis: Osteoporosis. ......... Comparison......... Previous scan: 04/07/2015, Baseline scan: 02/13/2011 Total hip: Compared to the most recent scan, no sig nificant change. Compared to the baseline scan, no signif icant change. Total spine: Compared to the most recent scan, no sig nificant change Compared to the baseline scan, no signif icant change. The measured changes in comparison [facility] study are not large enough in magnitude to be confidently considered t rue increases or decreases in bone mineral density at a 95% confidence leve l at this institution. Procedure Note Sanket Zhou MD - 06/27/2017Forma tting of this note might be different from the original. EXAMINATION: DXA CENTRAL-SPINE, HIP, AND /OR WHOLE BODY (GENERIC) CLINICAL HISTORY: osteoporosis TECHNIQUE: Scans were acquired at the esau mbar spine and left hip. Densitometer: HoloMaxCDN Discovery A FINDINGS: Lowest T-score at the diagnost ic region of interest: T-score: -2.6, TENZIN: Femoral neck, WHO di agnosis: Osteoporosis. ......... Comparison......... Previous scan: 04/07/2015, Baseline scan: 02/13/2011 Total hip: Compared to the most recent scan, no sig nificant change. Compared to the baseline scan, no signif icant change. Total spine: Compared to the most recent scan, no sig nificant change Compared to the baseline scan, no signif icant change. The measured changes in comparison [facility] study are not large enough in magnitude to be confidently considered t rue increases or decreases in bone mineral density at a 95% confidence leve l at this institution. IMPRESSION * Bone mineral density is stable. * Osteoporosis by WHO diagnostic criteri a. Estimating Fracture Risk: ? The relationship between bone mineral de nsity [...] independent, risk factors in addition to BMD. ? The World Health Organization (WHO) has developed a fracture risk prediction tool that calculates a ten-year risk of major osteoporotic fracture based on femoral neck bone density measurements a nd nine clinical risk factors for individuals who have not been treated fo r 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 This is available through an interactive web-based CiDRAa ce (http://www.shef.ac.uk/FRAX/) and can be used to [...] website which you are encouraged to review. ? DXA data sheets with BMD measurements an d plots are available in [facility] under the imaging tab. Paper copies will be sent to providers without E- access. If you have received this report without th e data sheet and do not have access to [facility], please contact Radiology Transcrip tion at [phone] Saturday thru Saturday 8am-4pm. Cuate Hall MD IMAna DEXA ORDERABLES documented in this encounter Visit Diagnoses Diagnosis Osteoporosis, unspecified osteoporosis t ype, unspecified pathological fracture presence documented in this encounter Care Teams Internet Sales Representative Relationship Specialty Start Date End Date Sarah Young APRN PCP - General Family Medicine 06/27/17 05/15/18 [address] [place] [address] documented as of this encounter
--- OUTSIDE RECORDS SUMMARY | 2022-03-23 02:27 | XMS_ITS | Encounter Summary ---
:1965 Author Organization [facility] [place] [address] Care Team Providers Name Role Phone Suzie Mcintyre APRN Primary Care Provider Encounter Details Date Type Department Care Team Description 03/13/2017 Hospital Encounter [place] [facility] Michael Nephrolithiasis [facility] [place] [address] UROLOGY DEPT. [phone] [place], [place] [address] Social History Tobacco Use Types [...] 5 mg daily. 0 01/27/2017 06/27/2017 Tablet estradiol 0.1 mg/24 hr apply 1 patch two 8 patch 11 201506/18/2017 Patch Semiweekly times a week as directed NASONEX 50 mcg/actuation 0 05/18/2016 06/11/2018 [place], Non-Aerosol levonorgestrel (MIRENA) 1 each by Intrauterine route once. Lot tu01 8ac 0 05/01/2016 05/01/2021 20 mcg/24 hr (5 years) [id number] IUD omeprazole (PRILOSEC) 20 PRN 0 03/22/2016 [...] Description 04/10/2022 Appointment Radiology Ferdinand Michael MD [facility] UROLOGY DEPT. [place], [place] [address] (Rahul ascencio) 04/10/2022 Office Visit Urology Ferdinand Michael MD [facility] UROLOGY DEPT. [place], [place] [address] (Rahul ascencio) 07/13/2022 Appointment Radiology Maile Hinojosa MD [facility] ENDOCRINOLOGY [place], [place] [address] (Wo rk) 07/13/2022 Office Visit Endocrinology Maile Hinojosa MD [facility] ENDOCRINOLOGY [place], [place] [address] (Wo rk) documented as of this encounter Procedures Procedure Name Priority Date/Time Associated Diagnosis Comme nts US RETROPERITONEAL Routine 03/13/2017 2:55 Nephrolithiasis Res ults for this COMPLETE PM EDT procedure are i n the results section. documented in this encounter Results US Retroperitoneal Complete (03/13/2017 2:55 PM EDT) Anatomical Region Laterality Modality Abdomen Ultrasound Specimen (Source) Anatomical Collection Method Collection Time Re ceived Time Location / / Volume Laterality 03/13/2017 2:56 PM EDT Impressions 03/13/2017 5:40 PM EDT ??1. ??Interval mild right sided pelvic aliectasis and possible tiny 2 mm rightinterpolar jluis l calculus.2. ??No left-sided pelvicaliectasis or sonograp hically evident nephrolithiasis.3. ??Unremarkable bladd er.I have personally reviewed the image(s) and e residents interpretation andagree with the Genie mills at 03/13/2017 5:32 PM ?Genie lopez MD Electronically Signed Final Report ?? 05:40 pm Narrative 03/13/2017 5:40 PM EDT Renal ? (Signed Final 03/13/2017 05:40 pm) PATIENT INFO: ID #: ? [id number] ?: ??[birth year] (51 yrs) Name: ? JESSICA Melvin GTZ ?Visit Date: 03/13/2017 02:56 pm PERFORMED BY: Performed By: ? Keya Hedrick RDMS Attending: ?Luna GILL, Genie Dumont Resident: ? Chula GILL, Kip Rojas Referred By: ?FERDINANDAMADOR MICHAEL Location: ? [place] SERVICE(S) PROVIDED: ??URETRO - Retroperitoneal Complete - I [id number] ? [id number] INDICATIONS: ??pt with history of stones, eval curre nt burden ??for operative planning COMPARISON: Renal/bladder ultrasound 07/26/15. RIGHT KIDNEY: Size (cm) ?L: ??9.9 Cortical Thickness: ?Normal wher e seen Cortical Echogenicity: ?? Normal Hydronephrosis: ?Mild pelv icaliectasis Comment: ?Limited visualization of lower pole due to overlying ? bowel gas. ? Possible 2 mm right m id pole calculus. LEFT KIDNEY: Size (cm) ?L: ??10.8 Cortical Thickness: ?Normal Cortical Echogenicity: ?? Normal Hydronephrosis: ?No sonogr aphic evidence Comment: ?No renal calculi seen. URINARY BLADDER: Right Urinary Jet: Visualized Left Urinary Jet: ??Visualized Pre-void (cm) ? L: ??9.6 ? A P: ??7.9 ? TV: ??9.8 Vol (ml): ?389.2 Comment: ?Partially distended, norm al contour. Procedure Note Genie Carrasco MD - 03/13/2017Formatt ing of this note might be different from the original. Renal (Signed Final 03/13/2017 05:40 pm ) PATIENT INFO: ID #: [id number] : [birth year] (51 y rs) Name: JESSICA GTZ Visit Date: 03/13 02:56 pm PERFORMED BY: Performed By: Chetna Hedrick RDMS Attending: Genie Carrasco MD Resident: Kip Quiros MD Referred By: FERDINAND MICHAEL JR Location: [place] SERVICE(S) PROVIDED: URETRO - Retroperitoneal Complete - [facility] [id number] INDICATIONS: pt with history of stones, eval current burden for operative planning COMPARISON: Renal/bladder ultrasound 07/26/15. RIGHT KIDNEY: Size (cm) L: 9.9 Cortical Thickness: Normal where seen Cortical Echogenicity: Normal Hydronephrosis: Mild pelvicaliectasis Comment: Limited visualization of lower pole due to overlying bowel gas. Possible 2 mm right mid pole calculus. LEFT KIDNEY: Size (cm) L: 10.8 Cortical Thickness: Normal Cortical Echogenicity: Normal Hydronephrosis: No sonographic evidence Comment: No renal calculi seen. URINARY BLADDER: Right Urinary Jet: Visualized Left Urinary Jet: Visualized Pre-void (cm) L: 9.6 AP: 7.9 TV: 9.8 Vol (ml): 389.2 Comment: Partially distended, normal co ntour. IMPRESSION 1. Interval mild right sided pelvicalie ctasis and possible tiny 2 mm rightinterpolar jluis l calculus.2. No left-sided pelvicaliectasis or sonograp hically evident nephrolithiasis.3. Unremarkable bladder .I have personally reviewed the image(s) and th e residents interpretation andagree with the Genie mills at 03/13/2017 5:32 PM Genie Carrasco MD Electronically Signed Final Report 03/13 05:40 pm Ferdinand Michael Jr., MD IMG US GEN ORDERABLES documented in this encounter Visit Diagnoses Diagnosis Nephrolithiasis Calculus of kidney documented in this encounter Care Teams Mandarin Tutor Relationship Specialty Start Date End Date Suzie Mcintyre APRN PCP - General Family Medicine 02/28/17 06/26/17 documented as of this encounter
--- OUTSIDE RECORDS SUMMARY | 2022-03-23 02:27 | XMS_ITS | Encounter Summary ---
:1965 Author Organization [facility] [place] [address] Care Team Providers Name Role Phone Sarah Young APRN Primary Care Provider [phone] Encounter Details Date Type Department Care Team Description 07/26/2017 Telephone Urology at [facility] Luis Michael Jr., MD [facility] [place] [address] UROLOGY DEPT. [phone] [place], [place] [address] (Wo rk) Social History Tobacco [...] MD [facility] UROLOGY DEPT. [place], [place] [address] (Wo rk) 04/10/2022 Office Visit Urology Luis Michael MD [facility] UROLOGY DEPT. [place], [place] [address] (Wo rk) 07/13/2022 Appointment Radiology Maile Hinojosa MD [facility] ENDOCRINOLOGY [place], [place] [address] (Wo rk) 07/13/2022 Office Visit Endocrinology Maile Hinojosa MD [facility] ENDOCRINOLOGY [place], [place] [address] (Wo rk) documented as of this encounter Visit Diagnoses Not on filedocumented in this encounter Care Teams Health Safety Engineer Relationship Specialty Start Date End Date Sarah Young APRN PCP - General Family Medicine 06/27/17 05/15/18 [address] [place] [address] documented as of this encounter
--- OUTSIDE RECORDS SUMMARY | 2022-03-23 02:27 | XMS_ITS | Encounter Summary ---
:1965 Author Organization [facility] [place] [address] Care Team Providers Name Role Phone Sarah Young APRN Primary Care Provider [phone] Encounter Details Date Type Department Care Team Description 06/27/2017 Office Visit Endocrinology at [facility] Cuate Pearl MD Osteoporosis, [facility] DR osteoporosis type, [place] [address] ENDOCRINOLOGY unspecified [phone] [place], [place] [address] pathological fracture [phone] presence (Work) Social History Tobacco Use Types Packs/Day Years Used Date Never Smoker Smokeless Tobacco: Never Used Alcohol Use Standard Drinks/Week Comments No 0 (1 standard drink = 0.6 oz pure alcoho l) Sex Assigned at Date Recorded Female 01/29/2022 12:45 PM EDT documented as of this encounter Last Filed Vital Signs Vital Sign Reading Time Taken Comments Blood Pressure 101/57 06/27/2017 2:08 PM EDT Pulse 68 06/27/2017 2:08 PM EDT Temperature - - Respiratory Rate - - Oxygen Saturation - - Inhaled Oxygen Concentration - - Weight 68.8 kg (151 lb 9.6 oz) 06/27/2017 2:08 PM EDT Height 172.7 cm (5' 8) 06/27/2017 2:08 PM EDT Body Mass Index 23.05 06/27/2017 2:08 PM EDT documented in this encounter Progress Notes Cuate Hall MD - 06/27/2017 2:00 PM EDT Subjective: Patient ID: Stacy Albright is a 51 y.o. female who comes in today to discuss ongoing oversight and treatment of her metabolic bone disease. She never has had a fragility fracture. She had taken some steroids in the past for some asthma and still takes it 2 or 3 times a year for a week. She is taking in some vitamin D supplements (about 1,000-2,000 a day) and also takes in some calcium but tries to limit her calcium because she has had a history of some kidney stones, although she has not had one recently (she was evaluated in the past and was thought to have possible hypercalciuria). 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 Currently using Mirena for heavy menses. HPI Review of Systems Objective: Physical Exam Constitutional: She is oriented to person, place, and time. She appears well- developed and well-nourished. Neurological: She is alert and oriented to person, place, and time. Psychiatric: She has a normal mood and affect. Her behavior is normal. Thought content normal. BP 101/57 Pulse 68 Ht 172.7 cm (5' 8) Wt 68.8 kg (151 lb 9.6 oz) BMI 23.05 kg/m2 Assessment and Plan: Her DEXA scan today showed that her total vertebral T-score was -0.5, and she had a significant 3.2% increase since 2014. Her hip, neck of the hip, her T-score was -2.6 and the total hip was -1.9%. Both of these have been stable over the last 2 years. I told Stacy at this point I felt that her DEXA scan was stable. Technically she does have osteoporosis due to the fact that at the neck of the hip, her T-score was -2.6. I told her that since she has never had a fragility fracture, I do not think she needs to add another medication at this point but would recommend that she continue on calcium, vitamin D and stay active. I did suggest that she agree to have a blood drawn for serum calcium, 25-hydroxy, vitamin D and PTH just to be sure she is taking in and absorbing adequate amounts of calcium. I then recommended that she consider having a repeat DEXA scan in about 3 years as she gets into her late 50s. I will write her with some final recommendations. I did say to her that if she goes into menopause, she may lose some more bone density. Therefore, that is an important reason to have a follow-up DEXA scan. I told her that at some point in the future she certainly may need to add on medication but I do not think she needs to do it at this point. documented in this encounter Plan of Treatment Upcoming Encounters Date Type Specialty Care Team Description 04/10/2022 Appointment Radiology Luis Michael MD [facility] UROLOGY DEPT. [place], [place] [address] (Wo rk) 04/10/2022 Office Visit Urology Luis Michael MD [facility] UROLOGY DEPT. [place], [place] [address] (Wo rk) 07/13/2022 Appointment Radiology Maile Hinojosa MD [facility] ENDOCRINOLOGY [place], [place] [address] (Wo rk) 07/13/2022 Office Visit Endocrinology Maile Hinojosa MD [facility] ENDOCRINOLOGY [place], [place] [address] (Wo rk) documented as of this encounter Procedures Procedure Name Priority Date/Time Associated Diagnosis Comme nts PTH Routine 06/27/2017 3:22 PM Osteoporosis, Results for this EDT unspecified procedure are i n osteoporosis type, the resul ts unspecified section. pathological fracture presence VITAMIN D, Routine 06/27/2017 3:22 PM Osteoporosis, Results for this 25-HYDROXY EDT unspecified procedure are i n osteoporosis type, the resul ts unspecified section. pathological fracture presence CALCIUM Routine 06/27/2017 3:22 PM Osteoporosis, Results for this EDT unspecified procedure are i n osteoporosis type, the resul ts unspecified section. pathological fracture presence documented in this encounter Results Calcium (06/27/2017 3:22 PM EDT) athologist Signature Calcium 9.1 8.5 - 10.5 ALBRET BOYKIN mg/dL [facility] Specimen Anatomical Collection Method Collection Time Receive d Time (Source) Location / / Volume Laterality Blood specimen 06/27/2017 3:22 PM 017 3:29 (specimen) EDT PM EDT Resulting Agency Comment Spec In Lab Cuate Hall MD CHEMISTRY ORDERABLES Performing Organization Address City/[facility] Phon e Number [address] Vitamin D, 25-Hydroxy (06/27/2017 3:22 PM EDT) athologist Signature 25-OH Vit D 32 30 - 100 ALBERT BOYKIN Total ng/mL [facility] Comment: Deficient <10 ng/mL Insufficient 10 to 29 ng/mL Sufficient 30 to 100 ng/mL Potential Intoxication >100 ng/mL According to the US National Osteoporosi s Foundation, Vitamin D concentrations >30 ng/mL are sufficient to protect bone health. ??The National Kidney Foundation has similarly stated that pat ients with Vitamin D concentrations <30ng/mL should be considered to be insu fficient or deficient. http://[employer]/nkf-guidelines http://[employer]/nejm-VitD The [employer] Vitamin D Immunoassay detec [...] Hall MD CHEMISTRY ORDERABLES Performing Organization Address City/[facility] Code Phon e Number [address] PTH (06/27/2017 3:22 PM EDT) P athologist Signature PTH 41 15 - 65 [facility] pg/mL [facility] Specimen Anatomical Collection Method Collection Time Receive d Time (Source) Location / / Volume Laterality Blood specimen 06/27/2017 3:22 PM 017 3:29 (specimen) EDT PM EDT Resulting Agency Comment Spec In Lab Cuate Hall MD CHEMISTRY ORDERABLES Performing Organization Address City/State/ZIP [place] [address] documented in this encounter Visit Diagnoses Diagnosis Osteoporosis, unspecified osteoporosis t ype, unspecified pathological fracture presence documented in this encounter Care Teams Senior Manager Relationship Specialty Start Date End Date Sarah Young APRN PCP - General Family Medicine 06/27/17 05/15/18 [address] [place] [address] documented as of this encounter
--- OUTSIDE RECORDS SUMMARY | 2022-03-23 02:27 | XMS_ITS | Encounter Summary ---
:1965 [place] [address] Care Team Providers Name Role Phone Suzie Mcintyre APRN Primary Care Provider Encounter Details Date Type Department Care Team Description 04/18/2017 Surgery Main Operating Room Luis Michael Jr., Ken SUTTON, [facility] FULGURATION\[facility] LESION\W\WO BX\[facility] DR THAN 0.5CM (WRVU 4.05) [facility] [place] [address] [place] [id number] [phone] (Wo rk) Social History Tobacco Use Types Packs/Day Years Used Date Never Smoker Smokeless Tobacco: Never Used Alcohol Use Standard Drinks/Week Comments No 0 (1 standard drink = 0.6 oz pure alcoho l) Sex Assigned at Date Recorded Female 01/29/2022 12:45 PM EDT documented as of this encounter Last Filed Vital Signs Vital Sign Reading Time Taken Comments Blood Pressure 124/70 04/18/2017 2:30 PM EDT Pulse 60 04/18/2017 11:51 AM EDT Temperature 36.1 ??C (97 ??F) 04/18/2017 1:37 PM EDT Respiratory Rate 16 04/18/2017 2:17 PM EDT Oxygen Saturation 100% 04/18/2017 2:30 PM EDT Inhaled Oxygen Concentration - - Weight 65.8 kg (145 lb) 04/18/2017 11:51 AM EDT Height 172.7 cm (5' 8) 04/18/2017 11:51 AM EDT Body Mass Index 22.05 04/18/2017 11:51 AM EDT documented in this encounter Discharge Instructions Discharge InstructionsBelle Peañloza RN - 04/18/2017 2:30 PM EDT POST [...] usually goes away in 12-24 hours. Patient Neil Car MD - 04/18/2017 12:31 PM EDT DISCHARGE [...] directed NASONEX 50 mcg/actuation 0 05/18/2016 06/11/2018 [place], Non-Aerosol levonorgestrel (MIRENA) 1 each by Intrauterine route once. Lot [id number] 05/01/2016 05/01/2021 20 mcg/24 hr (5 years) [id number] IUD omeprazole (PRILOSEC) 20 PRN 0 03/22/2016 [...] 1965 Attending Provider: Luis Michael Jr., MD Stacy Albright is a 51 y.o. female [...] History: Procedure Laterality Date ??? CREATED BY [employer] EJosephSJosephWGuido(MSUROL) Procedure Date: 01/16/2008 ??? KNEE SURGERY 03/01/14 [...] 8 patch 11 ??? NASONEX 50 mcg/actuation [place], Non-Aerosol 0 ??? SUMAtriptan (IMITREX) 100 mg Tablet as needed for Migraine. 1 ??? levonorgestrel (MIRENA) 20 mcg/24 hr (5 years) IUD 1 each by Intrauterine route once. Lot [id number] ??? multivitamin (THERAGRAN) tablet Take 1 tablet [...] Perez MD - 04/18/2017 1:31 PM EDT [facility] Operative Note Patient Name: Stacy Albright : [id number] MR#: [id number] Case Date: 04/18/2017 Surgeon: Surgeon(s) and Role: [...] Operative Note Patient Name: Stacy Albright : [id number] MR#: [id number] Case Date: 04/18/2017 Surgeon: Surgeon(s) and Role: [...] Michael MD [facility] UROLOGY DEPT. [place], [place] [address] (Wo rk) 04/10/2022 Office Visit Urology Luis Michael MD [facility] DR UROLOGY DEPT. [place], [place] [address] (Wo rk) 07/13/2022 Appointment Radiology Maile Hinojosa MD [facility] ENDOCRINOLOGY [place], [place] [address] (Wo rk) 07/13/2022 Office Visit Endocrinology Maile Hinojosa MD [facility] ENDOCRINOLOGY [place], [place] [address] (Wo rk) documented as of [...] Component Value Ref Test Analysis Performed At [facility] Method Time Signature Surgical [id number] ? Location: [facility]; [facility]; [facility] Report The signing pathologist has (i) [...] MD PATHOLOGY/CYTOLOGY ORDERABLE S Performing Organization Address City/[facility]/ZIP [facility] [place] [address] Specimen to Pathology (surgical or derm) (04/18/2017 1:17 PM EDT) Specimen Anatomical Collection Method Collection Time Receive d Time (Source) Location / / Volume Laterality AP Specimen 04/18/2017 1:17 PM 7 1:17 EDT PM EDT Narrative [facility] - 04/18/2017 1:17 PM EDT Specimen requisition ordered. ??Separate Pathology report to follow Luis Michael Jr., MD PATHOLOGY/CYTOLOGY ORDERABLE S Performing Organization Address City/[facility] [place] [address] documented in this encounter Visit Diagnoses Not on filedocumented in this encounter Administered Medications Inactive Administered [...] Provider: Romy Ballesteros MD) 2 g, Intravenous, QUALITY TECHNICIAN TO O.R., 1 dos e, Shanta 04/18/17 [...] Routine documented in this encounter Care Teams Neuropsychology Director Relationship Specialty Start Date End Date Suzie Mcintyre APRN PCP - General Family Medicine 02/28/17 06/26/17 documented as of this encounter
--- OUTSIDE RECORDS SUMMARY | 2022-03-23 02:27 | XMS_ITS | Encounter Summary ---
:1965 Author Organization [facility] [place] [address] Care Team Providers Name Role Phone EdJanet mendez Isa GONCALVES Primary Care Provider Reason for Visit Reason Comments Skin Lesion Consultation (Routine) - Specialty Diagnoses / Procedures Referred By Contact Refer red To Contact Dermatology Diagnoses SKIN LESION Doreen Larios PA [facility] Dermatology [address] [place] [address] [place] [address] Fax: Referral ID Status Reason Start Date Expiration Date Visits V isits Requested Authorized [id number] Consult, 05/16/2018 05/16/2019 6 6 [facility] Encounter Details Date Type Department Care Team Description 06/23/2018 Office Visit Dermatology at [facility] Seborrheic keratosis; Matthew Estrada MD Lentigines [address] [place] [address] [address] [facility] [address]-DERMATOLOGY [place], [place] [address] Social History Tobacco Use Types Packs/Day Years Used Date Never Smoker Smokeless Tobacco: Never Used Alcohol Use Standard Drinks/Week Comments No 0 (1 standard drink = 0.6 oz pure alcoho l) Sex Assigned at Date Recorded Female 01/29/2022 12:45 PM EDT documented as of this encounter Progress Notes Romy Ansari MD - 06/23/2018 3:30 PM EDT DERMATOLOGY OUTPATIENT CLINIC NOTE Date of service: 06/23/2018 Stacy Albright : 1965 Provider: Romy Ansari MD PROBLEM: mole on central chest SKIN HISTORY: Denies any history of Melanoma or non melanoma skin cancer HPI Stacy Albright is a 52 y.o. year old female. New patient to me. Presents to the clinic today for evaluation of a new mole on her central chest. She states that she first noticed it about a year ago. It seems to be oddly shaped and larger then all of her other moles. Denies any itching, bleeding, or pain. 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 Grass Pollen-[place], Standard Other (See Comments) Runny nose, itching, sneezing ??? Mold Extracts Other (See Comments) Sneezing and runny nose CURRENT MEDICATIONS: Current Outpatient Medications Medication Sig Dispense Refill ??? galantamine (RAZADYNE) 12 mg Tablet 0 ??? memantine (NAMENDA) 5 mg Tablet 0 ??? valACYclovir (VALTREX) 500 mg Tablet ??? azelastine (ASTELIN) 137 mcg (0.1 %) Aerosol, [place] instill 1 spray into each nostril twice a day 0 ??? SYMBICORT 160-4.5 mcg/actuation HFA Aerosol Inhaler 0 ??? LINZESS 145 mcg Capsule 145 mg every other day. 0 ??? estradiol 0.1 mg/[address] 1 patch onto the skin twice a week. 8 patch 11 ??? linaclotide (LINZESS) 72 mcg Capsule Take 72 mcg by mouth every other day. ??? SUMAtriptan (IMITREX) 100 mg Tablet as needed for Migraine. 1 ??? levonorgestrel (MIRENA) 20 mcg/24 hr (5 years) IUD 1 each by Intrauterine route once. Lot [id number] ??? omeprazole (PRILOSEC) 20 mg Capsule, Delayed [...] Top Twice daily ??? KETOCONAZOLE (NIZORAL TOP) No current facility-administered medications for this visit. PROBLEM LIST: Patient Active Problem List Diagnosis Code ??? Asthma J45.909 ??? Nephrolithiasis N20.0 ??? Raynaud's disease I73.00 ??? Migraines G43.909 ??? Perimenopause N95.1 ??? Pap smear for cervical cancer screening Z12.4 ROS General: feeling well. Oriented X 3. Skin: denies other skin complaints EXAM General: NAD, pleasant, cooperative Skin: Focused skin examination of the chest and neck was normal with the exception of the findings listed below. Significant skin findings: -- left chest: 0.4-0.6cm brown papule with waxy, stuck-on appearance -- face and arms: Sun exposed areas: 0.3-0.6cm light-brown evenly pigmented, well-demarcated macules. ASSESSMENT/PLAN Seborrheic Keratoses - Benign. No treatment necessary. - Reassured about benign nature and natural history. Solar Lentigines - Benign. No treatment necessary. - Reassured about benign nature and natural history. - Sun avoidance, protective clothing and the use of SPF 30+ sunscreen is advised. Observe closely for skin changes and call if such occurs. RTC - PRN Note initiated and routed to physician for review and change by: Romy Cheney LPN I, Colby Hernandez, have performed the documentation for this encounter in the presence of and acting as a scribe for Romy Ansari MD. I, Dr. Romy Ansari, performed the visit service though my nurse assisted me in scribing the note. I reviewed and edited this note above, a scribed service performed by my nurse. On closure of this note I agree with the accuracy of the documentation. Romy Ansari MD Section of Dermatology [facility] documented in this encounter Plan of Treatment Upcoming Encounters Date Type Specialty Care Team Description 04/10/2022 Appointment Radiology Luis Michael MD [facility] UROLOGY DEPT. [place], [place] [address] (Wo rk) 04/10/2022 Office Visit Urology Luis Michael MD [facility] UROLOGY DEPT. [place], [place] [address] (Wo rk) 07/13/2022 Appointment Radiology Maile Hinojosa MD [facility] ENDOCRINOLOGY [place], [place] [address] (Wo rk) 07/13/2022 Office Visit Endocrinology Maile Hinojosa MD [facility] ENDOCRINOLOGY [place], [place] [address] (Wo rk) documented as of this encounter Visit Diagnoses Diagnosis Seborrheic keratosis Other seborrheic keratosis Lentigines Other dyschromia documented in this encounter Care Teams Hoof Trimmer Relationship Specialty Start Date End Date Janet Davey APRN PCP - General Family Medicine 06/23/18 07/12/20 [address] [place] [address] documented as of this encounter
--- OUTSIDE RECORDS SUMMARY | 2022-03-23 02:27 | XMS_ITS | Encounter Summary ---
:1965 Author Organization [facility] Address [address] [place] [address] Care Team Providers Name Role Phone Sarah Young APRN Primary Care Provider [phone] Encounter Details Date Type Department Care Team Description 08/05/2017 Hospital Encounter Mammography at [facility] Ida Ron, Encounter for [facility] L[facility] OUT DRAFTER screening mammogram Drive [facility] for breast cancer [place], [place] CENTER [address] OBSTETRICS & [phone] [place] [address] Social History Tobacco Use Types Packs/Day Years [...] (0.1 %) Aerosol, each nostril twice a [place] day SUMAtriptan (IMITREX) as needed for 1 [...] morning. NASONEX 50 mcg/actuation 0 05/18/2016 06/11/2018 [place], Non-Aerosol levonorgestrel (MIRENA) 1 each by Intrauterine route once. Lot [id number] 0 05/01/2016 05/01/2021 20 mcg/24 hr (5 years) [id number] IUD omeprazole (PRILOSEC) 20 PRN 0 03/22/2016 [...] Appointment Radiology Luis Michael MD [facility] UROLOGY DEPT. [place], [place] [address] (Wo rk) 04/10/2022 Office Visit Urology Luis Michael MD [facility] UROLOGY DEPT. [place], [place] [address] (Wo rk) 07/13/2022 Appointment Radiology Maile Hinojosa MD [facility] ENDOCRINOLOGY [place], [place] [address] (Wo rk) 07/13/2022 Office Visit Endocrinology Maile Hinojosa MD [facility] ENDOCRINOLOGY [place], [place] [address] (Wo rk) documented as of this encounter Procedures Procedure Name Priority Date/Time Associated Diagnosis Comme nts MAMMO SCREENING CAD Routine 08/05/2017 8:44 AM Encounter for R esults for this AND EDDIE BILATERAL EST screening mammogram pr ocedure are in for breast cancer the result s section. documented in this encounter Results Mammo Screen CAD and Eddie Bilat (Generic) (08/05/2017 8:44 AM EST) Anatomical Region Laterality Modality Breast Bilateral Mammography Specimen (Source) Anatomical Location Collection Method / Collectio n Time Received Time / Laterality Volume Narrative 08/05/2017 9:17 AM EST BILATERAL MAMMOGRAPHY REASON FOR EXAM: Screening TECHNIQUE: CC and MLO views were obtaine d of each breast using standard 2-D mammography as well as 3-D tomosynth esis. Computer aided detection was used. This is compared with prior images . FINDINGS: ??The breasts are heterogeneou sly dense, which may obscure small masses. There are no suspicious microcal cifications, masses, or areas of distortion. The pattern is stable. CONCLUSION: No mammographic evidence of malignancy. RECOMMENDATION: The [employer] and The Society of Breast Imaging recommend annual screenin g beginning at age 40 for the general female population. Screening dillon uld continue as long as a woman is in good health and is expected to live 1 0 more years or longer. All women should be familiar with the known benefi ts, limitations, and potential harms linked to breast cancer screening. They should also know how their breasts normally look and feel and repor t any breast changes to a health care provider right away. Some women - b ecause of their family history, a genetic tendency, or certain other facto rs - should be screened with MRIs along with mammograms. (The number of wo men who fall into this category is very small.) The patient and health care provider should discuss the patient history and decide if earlier sc reening and breast MRI are appropriate. A result letter has been sent to this pa zhanna by the [facility]. BIRADS CATEGORY 1: NEGATIVE Ida Ron APRN IMG MAMMO ORDERABLES documented in this encounter Visit Diagnoses Diagnosis Encounter for screening mammogram for br east cancer documented in this encounter Care Teams Cut Out Machine Operator Relationship Specialty Start Date End Date Sarah Young APRN PCP - General Family Medicine 06/27/17 05/15/18 [address] [place] [address] documented as of this encounter
--- OUTSIDE RECORDS SUMMARY | 2022-03-23 02:27 | XMS_ITS | Encounter Summary ---
:1965 [place] [address] Care Team Providers Name Role Phone Suzie Mcintyre APRN Primary Care Provider Encounter Details Date Type Department Care Team Description 04/18/2017 Anesthesia Event Main Operating Room Isa Santiago [facility] MD [facility] Victor Manuel cifuentes [place] [address] [place] [address] [phone] (Wo rk) Anesthesia Record Procedure Summary Procedure Name Responsible Anesthesia Start Anesthesia Stop Time Anesthesiologist Time Jimmy MALIN Kathleen H, MD 04/18/17 1247 1343 FULGURATION\BLADDER LESION\W\WO BX\LESS THAN 0.5CM (WRVU 4.05) (N/A Bladder) Events Date Time Event Comment 04/18/2017 1247 AN Verify 1247 An Start Data 1247 Start 1257 An Induction 1259 An Intubation 1308 Anesthesia Ready 1313 Procedure Start 1334 Extubation/LMA Out 1334 an stop data 1343 Recovery or ICU Handoff Patient care was transferred to the destination unit staff after review of the patient's medica l history, current anesthetic/surgi beena status and plan, according to the Provider Handoff Checklist. 1343 Stop 1347 Name Total fentaNYL 25 mcg IV Lidocaine 60 mg Propofol 220 mg Ondansetron 8 mg Dexamethasone 8 mg ceFAZolin (ANCEF) 2g in dextrose 5% 100 mL 2 g Propofol INF 315.84 mg lactated Ringers infusion 1,000 mL 550 mL Agents Name O2 Air N2O Sevoflurane (et) Blood No blood administrations on file. Lines, Drains, and Airways Type Details Placement Removal PIV 04/18/17; 1212; median 04/18/17 1212 by Augustin, 0 04/18/17 1524 by cubital vein (antecubital David Tristan, KEON Peñaloza, [place], KEON swartz), left; [id number] catheter system; 20 gauge; Marisol; distraction, intradermal injection; no longer indicated, catheter/device intact, removed per policy/procedure; 04/18/17; 1524 Supraglottic Mask Ventilation: Easy 04/18/17 1304 by Favian, 0 04/18/17 1334 by (1); LMA Type: iGel; LMA MD Favian Prakash Jessica L, MD Size: 3 documented in this encounter Social History Tobacco Use Types Packs/Day Years Used Date Never Smoker Smokeless Tobacco: Never Used Alcohol Use Standard Drinks/Week Comments No 0 (1 standard drink = 0.6 oz pure alcoho l) Sex Assigned at Date Recorded Female 01/29/2022 12:45 PM EDT documented as of this encounter OR Notes Anesthesia Postprocedure Evaluation - Romy Ballesteros MD - 04/18/2017 3:30 PM EDT [facility] [place]hesiology Post-procedure Note Patient: Stacy Albright Procedure Summary Date Anesthesia Start Anesthesia Stop Room / Location 04/18/17 1247 1343 [facility] OR 28 / [facility] MAIN OR Procedure Diagnosis Surgeon Responsible Provider CYSTO, FULGURATION\BLADDER LESION\W\WO BX\LESS THAN 0.5CM (WRVU 4.05) (N/A Bladder) (small bladder lesion) Luis Michael Jr., MD Chaimberg, Kathleen H, MD All Anesthesia Providers: Anesthesiologist: Marcelle Marquez MD Woods Rider: Romy Ballesteros MD Last (1hr) Vitals: BP 118/80 (04/18/17 1445) Temp Pulse Resp SpO2 99 % (04/18/17 1500) Patient Location: PACU/[facility] Level of Consciousness: Awake and Alert Pain Management: Satisfactory Analgesia PONV: None Cardiovascular Status: At Baseline and Hemodynamically Stable Respiratory Status: At Baseline and Room Air Postoperative Fluid Status: Intravascular EUvolemia Possible Anesthetic Complications: NONE apparent at time of evaluation Final Primary Anesthesia Type: General (The anesthetic type performed was the same as planned.) Comments: Romy Ballesteros MD Anesthesia Preprocedure Evaluation - Romy Ballesteros MD - 04/18/2017 6:49 AM EDT Pre-Anesthesia Evaluation for: Stacy Albright a 51 y.o. female. Procedure(s): CYSTO, URETHROSCOPY WITH BIOPSY (WRVU 2.59) Patient Active Problem List Diagnosis ??? Pap smear for cervical cancer screening ??? Asthma ??? Nephrolithiasis ??? Raynaud's disease ??? Migraines ??? Perimenopause Past Medical History: Diagnosis Date ??? Abnormal glandular Papanicolaou smear of cervix age 15 ??? Asthma ??? Gastric acidity possible ulcer ??? History of nephrolithiasis ??? Migraines ??? Osteoporosis ??? Raynaud's disease ??? Vaginal infection PID at 15 Past Surgical History: Procedure Laterality Date ??? CREATED BY FX Aligned EJosephSJosephWGuido(MSUROL) Procedure Date: 01/16/2008 ??? KNEE SURGERY 03/01/14 Right knee; patella surgery ??? LITHOTRIPSY Social History Substance Use Topics ??? Smoking status: Never Smoker ??? Smokeless tobacco: Never Used ??? Alcohol use No History Drug Use No Allergies Allergen Reactions ??? Grass Pollen-[place], Standard Other (See Comments) Runny nose, itching, sneezing ??? Mold Extracts Other (See Comments) Sneezing and runny nose Medications: MAR and/or home medications have been reviewed. Physical Exam: There were no vitals filed for this visit. There is no height or weight on file to calculate BMI. Airway Assessment: Mallampati: II TM distance: >3 FB Neck ROM: full Cardiovascular Assessment: cardiovascular exam normal Pulmonary Assessment: (-) wheezes pulmonary exam normal Dental Assessment: - normal exam Misc Assessment: IV access: Peripheral line Anesthesia Plan: ASA 2 general, with a(n) intravenous induction Stacy Albright is a 51yo 66kg non smoker female with a PMHx of Raynaud's disease, GERD, asthma, osteoporosis, nephrolithiasis scheduled for a cystoscopy with biopsy. No previous anesthesia records available. Patient reports hx of PONV and has good effect with what she thinks was a TIVA. She prefers TIVA. Asthma is usually well controlled but she has reported chest tightness over the past few nights. Shehas not had to use her rescue inhaler for a few months. Patient has no exercise limitations. Denies CP, SOB, recent URI sx, GERD. Appropriately NPO. Allergies to grass pollen and mold Plan for GA c LMA, standard ASA monitoring and adequate IV access Region - Other Informed Consent: Anesthetic plan and risks discussed with patient. Use of blood products discussed with patient who consented to blood products. Plan discussed with attending. PAT Staff Note documented in this encounter Plan of Treatment Upcoming Encounters Date Type Specialty Care Team Description 04/10/2022 Appointment Radiology Luis Michael MD [facility] UROLOGY DEPT. [place], [place] [address] (Rahul ascencio) 04/10/2022 Office Visit Urology Luis Michael MD [facility] UROLOGY DEPT. [place], [place] [address] (Wo rk) 07/13/2022 Appointment Radiology Maile Hinojosa MD [facility] ENDOCRINOLOGY [place], [place] [address] (Wo rk) 07/13/2022 Office Visit Endocrinology Maile Hinojosa MD [facility] ENDOCRINOLOGY [place], [place] [address] (Wo rk) documented as of this encounter Visit Diagnoses Not on filedocumented in this encounter Administered Medications Inactive Administered Medications - up to 3 most recent administrations Medication Order MAR Action Action Date Dose Rate Site ceFAZolin (ANCEF) 2g in dextrose 5% Given 04/18/2017 1:08 PM EDT 2 g 100 mL 2 g, Intravenous, MEMORIAL COUNSELOR TO O.R., 1 dose, On Shanta 04/18/17 at 0700, Administer over 30 Minutes, Indication for (Active or Suspected): Prophylaxis dexamethasone (DECADRON) injection Given 04/18/2017 1:10 PM EDT 8 mg PRN, Starting on Shanta 04/18/17 at 1310, Until Shanta 04/18/17 at 1343, Anesthesia Intra-op, Routine fentaNYL 50 mcg/mL multi-dose injection Given 04/18/2017 12:57 PM EDT 25 mcg PRN, Starting on Shanta 04/18/17 at 1257, Until Shanta 04/18/17 at 1343, Pain, Anesthesia Intra-op, Routine lactated Ringers infusion 1,000 mL New Bag 04/18/2017 12:47 PM EDT 1,000 mL, at 100 mL/hr, Intravenous, CONTINUOUS, Starting on Shanta 04/18/17 at 1215, Until Shanta 04/18/17 at 1523, Day of Surgery (Day of Procedure) lidocaine (PF) (XYLOCAINE) 100 mg/5 mL (2 %) Given 12:57 PM EDT 60 mg injection PRN, Starting on Shanta 04/18/17 at 1257, Until Shanta 04/18/17 at 1343, Anesthesia Intra-op, Routine ondansetron (ZOFRAN) injection Given 04/18/2017 1:14 PM EDT 8 mg PRN, Starting on Shanta 04/18/17 at 1314, Until Shanta 04/18/17 at 1343, Nausea, Anesthesia Intra-op, Routine propofol (DIPRIVAN) 10 mg/mL bolus injection Given 7 1:24 PM EDT 20 mg (Anesthesia) PRN, Starting on Shanta 04/18/17 at 1257, Until Shanta 04/18/17 at 1343, Anesthesia Intra-op Given 04/18/2017 1:11 PM EDT 50 mg Given 04/18/2017 12:57 PM EDT 150 mg propofol (DIPRIVAN) infusion New Bag 04/18/2017 12:58 PM 200 mcg/kg/min 79 mL/hr CONTINUOUS PRN, Starting on Shanta EDT 04/18/17 at 1258, Until Shanta 04/18/17 at 1343, Anesthesia Intra-op, Routine documented in this encounter Care Teams Integration Developer Relationship Specialty Start Date End Date Suzie Mcintyre APRN PCP - General Family Medicine 02/28/17 06/26/17 documented as of this encounter
--- OUTSIDE RECORDS SUMMARY | 2022-03-23 02:27 | XMS_ITS | Encounter Summary ---
:1965 Author Organization [facility] [place] [address] Care Team Providers Name Role Phone Suzie Mcintyre APRN Primary Care Provider Reason for Visit Reason Comments Follow-up Encounter Details Date Type Department Care Team Description 04/09/2017 Office Visit Urology at [facility] Luis Michael History of renal stone [facility] [place] [address] [address] DEPT. [phone] [place], [place] [address] Social History Tobacco Use Types Packs/Day Years Used Date Never Smoker Smokeless Tobacco: Never Used Alcohol Use Standard Drinks/Week Comments No 0 (1 standard drink = 0.6 oz pure alcoho l) Sex Assigned at Date Recorded Female 01/29/2022 12:45 PM EDT documented as of this encounter Last Filed Vital Signs Vital Sign Reading Time Taken Comments Blood Pressure 119/69 04/09/2017 8:27 AM EDT Pulse 63 04/09/2017 8:27 AM EDT Temperature - - Respiratory Rate - - Oxygen Saturation - - Inhaled Oxygen Concentration - - Weight 65.8 kg (145 lb) 04/09/2017 8:27 AM EDT Height 172.7 cm (5' 8) 04/09/2017 8:27 AM EDT Body Mass Index 22.05 04/09/2017 8:27 AM EDT documented in this encounter Patient Instructions Patient InstructionsJoVida edwards LPN - 04/09/2017 8:30 AM EDT Instructions following Cystoscopy Activity: As tolerated by your comfort level. Fluids: You should increase your water today. Avoid coffee, tea and cola. You do not need to exceed 64 ounces of water today. Urination: You will likely have a small amount of blood in your urine for the next several days. This is normal; however, if you are passing large amounts of blood clots or are unable to void please call our office at [phone] before 5PM or [phone] after hours. Please call if: * you have copious blood in your urine * fevers greater than 101.3 F * you are unable to void The number for questions is [phone] before 5 PM weekdays and [phone] after 5 PM and weekends. Follow-up: with surgery documented in this encounter Progress Notes Luis Michael Jr., MD - 04/09/2017 8:30 AM EDT HPI Ms. Stacy Albright returns for follow up regarding reported hematuria with history of urolithiasis. She is s/p SWL in 2007 and left ureterscopy in 07/2010. Although ultrasounds have suggested a 4-5 mm left lower pole stone, CT confirmed no residual stone. She returned February 2017 with left sided flank pain and u/a notable for hematuria on dip. She underwent repeat Ct (CT urogram), which showed no evident source for hematuria.. No evidence of renal mass, collecting system filling defect, or evident bladder abnormality noted. No discrete stones reported, although on review of fine cuts of non-contrast phase, possible tiny punctate left lower pole calcification suggested. We reviewed that microscopuc u/a showed <1rbc/hpf. In light of her report of witnessed spotting, we discussed could still proceed with cystoscopy to complete suspected hematuria evaluation, as well as watchful waiting. She wishes to proceed with cystoscopy. If negative cysto, I also suggested she undergo SOUND EFFECTS PERSON evaluation to assess for possible SOUND EFFECTS PERSON source for bloody spotting. In the interval since her last visit, she has been otherwise well. Pain resolved and has not recurred. She believes she may have noted one more episode of ?bloody spotting. Review of Systems Constitution: Negative for fever. [...] appears well- developed and well-nourished. No distress. Cardiovascular: Normal rate. Neurological: She is alert and oriented to person, place, and time. Skin: She is not diaphoretic. Psychiatric: She has a normal mood and affect. Her behavior is normal. Stone analysis: 90% calcium oxalate dehydrate and 10% calcium phosphate. Imaging studies: I independently reviewed CT urogram with findings as noted above. CT urogram report: ?? Right kidney and [...] urogram. No etiology identified for hematuria. Impression/Plan: Left flank ache of unclear etiology, although now largely resolved. We discussed she may have simply passed a small stone prior to CT. We reviewed follow up options and discussed in absence of ua confirmation, could proceed in either fashion.-she wishes to proceed with cystoscopy to complete evaluation for the blood she saw. ADDENDUM--see full cysto note. A small (2-3mm), overall smooth raised lesion was noted postero-medial to right ureteral orifice. Otherwise, no focal mucosal abnormality was seen. bilateral ureteral orifices were identified, effluxing clear urine. She tolerated the procedure well. We reviewed options; she wishes to proceed with cystoscopic biopsy under anesthesia. This will be scheduled for her. Informed consent reviewed and obtained. documented in this encounter Plan of Treatment Upcoming Encounters Date Type Specialty Care Team Description 04/10/2022 Appointment Radiology Luis Michael MD [facility] UROLOGY DEPT. [place], [place] [address] (Wo rk) 04/10/2022 Office Visit Urology Luis Michael MD [facility] UROLOGY DEPT. [place], [place] [address] (Wo rk) 07/13/2022 Appointment Radiology Maile Hinojosa MD [facility] ENDOCRINOLOGY [place], [place] [address] (Wo rk) 07/13/2022 Office Visit Maile Matson MD [facility] ENDOCRINOLOGY [place], [place] [address] (Wo rk) documented as of this encounter Results Cystoscopy (04/09/2017 10:36 AM EDT) Narrative Luis Michael Jr., MD - 04/09/2017 10:3 6 AM EDT Luis Michael Jr., MD ? 04/09/2017 10:36 AM Preoperative Diagnosis: reported hematur ia Postoperative Diagnosis: same Procedure: Flexible cystoscopy Surgeon: Fernanda Anesthesia: local with topical lidocaine Specimens: none Findings: tiny 1-2 mm raised lesion anirudh cent to right ureteral orifice Stacy Albright was taken to the cystosc opy room and prepped and draped by our urology nurse. ??Prophylac tic antibiotic administration was confirmed. ??Topical viscous lidocaine gel was applied to the urethra for local anesthe tic. A timeout was performed. ??Flexible cystoscopy was per formed. ?? The urethra was without abnormality. ??T he bladder was entered and inspected. ??A small, overall smooth krishna sed lesion was noted postero-medial to right ureteral orifice . ??Otherwise, no focal mucosal abnormality was seen. ?? bilater al ureteral orifices were identified, effluxing clear urine. She tolerated the procedure well. We reviewed options; she wishes to proce ed with cystoscopic biopsy under anesthesia. This will be sc heduled for her. Informed consent reviewed. Luis Michael Jr., MD PROCEDURE ORDERABLES documented in this encounter Visit Diagnoses Diagnosis History of renal stone Personal history of urinary calculi documented in this encounter Care Teams Sample Weaver Relationship Specialty Start Date End Date Suzie Mcintyre APRN PCP - General Family Medicine 02/28/17 06/26/17 documented as of this encounter
--- OUTSIDE RECORDS SUMMARY | 2022-03-23 02:27 | XMS_ITS | Encounter Summary ---
:1965 Author Organization [facility] [place] [address] Care Team Providers Name Role Phone Monica Garcia MD Primary Care Provider Encounter Details Date Type Department Care Team Description 08/02/2016 [place] [facility] [place] NicolásRosey sheriff Visit for screening [facility] MD Ken mammogram [facility] [address] OBSTETRICS & [phone] [place] [address] Social History Tobacco Use Types Packs/Day Years [...] mL nebulizer solution estradiol 0.1 mg/24 hr apply 1 patch two 8 patch 11 201506/18/2017 Patch Semiweekly times a week as directed NASONEX 50 mcg/actuation 0 05/18/2016 06/11/2018 Rex, Non-Aerosol levonorgestrel (MIRENA) 1 each by Intrauterine route once. Lot tu01 8ac 0 05/01/2016 05/01/2021 20 mcg/24 hr (5 years) [id number] IUD omeprazole (PRILOSEC) 20 PRN 0 03/22/2016 08/06/2018 mg Capsule, Delayed Release(E.C.) ondansetron (ZOFRAN) 4 take 1 tablet by 0 016 04/09/2017 mg Tablet mouth every 6 hours if needed fluconazole (DIFLUCAN) take 1 tablet by 0 016 03/13/2017 150 mg Tablet mouth if needed for SYMPTOMS OF YEAST VAGINITIS NIFEdipine (ADALAT CC) Take 30 mg by [...] Luis Michael MD [facility] UROLOGY DEPT. [place], [place] [address] (Rahul ascencio) 04/10/2022 Office Visit Urology Luis Michael MD [facility] UROLOGY DEPT. [place], [place] [address] (Wo rk) 07/13/2022 Appointment Radiology Maile Hinojosa MD [facility] ENDOCRINOLOGY [place], [place] [address] ( rk) 07/13/2022 Office Visit Endocrinology Maile Hinojosa MD [facility] END[facility] [place], [place] [address] ( rk) documented as of this encounter Procedures Procedure Name Priority Date/Time Associated Diagnosis Comme nts MAMMO SCREENING CAD Routine 08/02/2016 3:48 PM Visit for agustín judd Results for this AND EDDIE BILATERAL EST mammogram procedure are in the results section. documented in this encounter Results Mammo Screen CAD and Eddie Bilat (Generic) (08/02/2016 3:48 PM EST) Anatomical Region Laterality Modality Breast Bilateral Mammography Specimen (Source) Anatomical Location Collection Method / Collectio n Time Received Time / Laterality Volume Narrative 08/03/2016 8:27 AM EST BILATERAL MAMMOGRAPHY REASON FOR EXAM: [...] No mammographic evidence of malignancy. RECOMMENDATION: The [place] [employer] and The Society of [...] Breast Imaging Center. BIRADS CATEGORY 1: NEGATIVE Rosey Crabtree MD IMG MAMMO ORDERABLES documented in this encounter Visit Diagnoses Diagnosis Visit for screening mammogram Other screening mammogram documented in this encounter Care Teams Grants Specialist Relationship Specialty Start Date End Date Monica Garcia MD PCP - General 01/06/13 02/27/17 [address] [place] [address] documented as of this encounter
--- OUTSIDE RECORDS SUMMARY | 2022-03-23 02:27 | XMS_ITS | Encounter Summary ---
:1965 Author Organization [place] [address] Care Team Providers Name Role Phone Janet Davey APRN Primary Care Provider Encounter Details Date Type Department Care Team Description 08/15/2018 Hospital Encounter [place] [facility] [place]ineo, Abnormal finding on [facility] MD breast imaging [facility] [address] NUCLEAR MEDICINE [phone] [place] [address] Social History Tobacco Use Types Packs/Day Years [...] (0.1 %) Aerosol, each nostril twice a [place] day SUMAtriptan (IMITREX) as needed for 1 [...] Patch Semiweekly the skin twice a week. valACYclovir (VALTREX) 0 01/27/2018 500 mg Tablet SYMBICORT 160-4.5 0 06/18/2017 019 mcg/actuation HFA Aerosol Inhaler LINZESS 145 mcg Capsule 145 mg as needed. 0 06/2102/12/2022 linaCLOtide (Linzess) 72 Take 72 mcg by mouth. 0 02/12/2022 mcg Capsule One time per week levonorgestrel (MIRENA) 1 each by Intrauterine route once. Lot tu01 8ac 0 05/01/2016 05/01/2021 20 mcg/24 hr (5 years) [id number] IUD cetirizine (ZYRTEC) 10 Take 10 mg by mouth 0 02/12/2022 mg tablet daily. tacrolimus (PROTOPIC) 1 Appl(s) Top Twice 0 08/2402/12/2022 0.1 % ointment daily KETOCONAZOLE (NIZORAL Apply topically. 0 08/24/20 10 02/12/2022 TOP) documented as of this encounter Plan of Treatment Upcoming Encounters Date Type Specialty Care Team Description 04/10/2022 Appointment Radiology Luis Michael MD [facility] UROLOGY DEPT. [place], [place] [address] (Wo silva) 04/10/2022 Office Visit Urology Luis Michael MD [facility] UROLOGY DEPT. [place], [place] [address] (Rahul ascencio) 07/13/2022 Appointment Radiology Maile Hinojosa MD [facility] ENDOCRINOLOGY [place], [place] [address] (Wo rk) 07/13/2022 Office Visit Endocrinology Maile Hinojosa MD [facility] ENDOCR[facility]OLOGY [place], [place] [address] (Wo rk) documented as of this encounter Procedures Procedure Name Priority Date/Time Associated Comments Diagnosis MAMMO CALL BACK Routine 08/15/2018 3:07 PM Abnormal finding on Results for this DIAGNOSTIC EDDIE EST breast imaging procedure are in WITHOUT CAD RIGHT the result s section. documented in this encounter Results Mammo Call Back Diagnostic Eddie Without Cad Right (08/15/2018 3:07 PM EST) Anatomical Region Laterality Modality Breast Right Mammography Specimen (Source) Anatomical Location Collection Method / Collectio n Time Received Time / Laterality Volume Impressions 08/15/2018 3:09 PM EST Right breast: Findings do not persist on additional diagnostic views. No suspicious findings. Recommendations: Annual screening mammog sneha. Findings and recommendations were discussed with the patient, who concurs. Right breast: BI-RADS 1, negative. * ??The [place] [employer] an d The Society of Breast Imaging recommend annual screening beginning at age 40 for the general female population. * ??Screening should continue as long as a woman is in good health and is expected to live 10 more years or longer . * ??All women should be familiar with th e known benefits, limitations, and potential harms linked to breast cancer screening. They also should know how their breasts normally look and feel and report any breast changes to a health care provider right away. * ??Some women, because of their family history, a genetic tendency, or certain other factors, should be screened with M RIs along with mammograms. (The number of women who fall into this category is very small.) The patient and health care provider should discuss the patient hist ory and decide if earlier screening and breast MRI are appropriate. Narrative 08/15/2018 3:09 PM EST EXAMINATION: MAMMO CALL BACK DIAGNOSTIC EDDIE WITHOUT CAD RIGHT CLINICAL HISTORY: abnormal finding. 53-y ear-old female, returns for additional diagnostic imaging of the right breast, from screening views. TECHNIQUE: Right breast spot CC, spot MLO, true lat eral 2-D/3-D imaging. Tomographic imaging was obtained, CAD software was u tilized. Digital mammography, direct image capture. COMPARISON: 08/06/2018. Multiple additional comparis ons. FINDINGS: Density, heterogeneously dense, limiting mammographic sensitivity. The upper and outer right breast area of concern for focal asymmetry, does not persist on additional diagnostic views. Normal parenchymal elements. No suspicious calcifications, mass, distort ion. Rose Tineo MD IMG MAMMO ORDERABLES documented in this encounter Visit Diagnoses Diagnosis Abnormal finding on breast imaging Other (abnormal) findings on radiologica l examination of breast documented in this encounter Care Teams Carpenter Refrigerator Relationship Specialty Start Date End Date Janet Davey, MATRIX REPAIRER PCP - General Family Medicine 06/23/18 07/12/20 [address] [place] [address] documented as of this encounter
--- OUTSIDE RECORDS SUMMARY | 2022-03-23 02:27 | XMS_ITS | Encounter Summary ---
:1965 Author Organization [facility] [place] [address] Care Team Providers Name Role Phone Suzie Mcintyre APRN Primary Care Provider Encounter Details Date Type Department Care Team Description 02/19/2017 Telephone [place] [facility] Michael Jr., MD [facility] [place] [address] UROLOGY DEPT. [phone] [place], [place] [address] (Wo rk) Social History Tobacco [...] Description 04/10/2022 Appointment Radiology Luis Michael MD [facility] UROLOGY DEPT. [place], [place] [address] (Wo rk) 04/10/2022 Office Visit Urology Luis Michael MD [facility] UROLOGY DEPT. [place], [place] [address] (Wo rk) 07/13/2022 Appointment Radiology Maile Hinojosa MD [facility] ENDOCRINOLOGY [place], [place] [address] (Wo rk) 07/13/2022 Office Visit Endocrinology Maile Hinojosa MD [facility] ENDOCRINOLOGY [place], [place] [address] (Wo rk) documented as of this encounter Visit Diagnoses Not on filedocumented in this encounter Care Teams Salvage Mechanic Relationship Specialty Start Date End Date Suzie Mcintyre APRN PCP - General Family Medicine 02/28/17 06/26/17 documented as of this encounter
--- OUTSIDE RECORDS SUMMARY | 2022-03-23 02:28 | XMS_ITS | Encounter Summary ---
:1965 Author Organization [facility] [place] [address] Care Team Providers Name Role Phone Monica Garcia MD Primary Care Provider Encounter Details Date Type Department Care Team Description 04/10/2016 Office Visit Obstetrics and Ida Ron, Abnormal perimenopausal Gynecology at [facility] LEARNING ADMINISTRATOR bleeding [facility] [address] [place] OBSTETRICS & [id number] GYNECOLOGY [phone] [place], [place] [address] Social History Tobacco Use Types Packs/Day Years Used Date Never Smoker Smokeless Tobacco: Never Used Alcohol Use Standard Drinks/Week Comments No 0 (1 standard drink = 0.6 oz pure alcoho l) Sex Assigned at Date Recorded Female 01/29/2022 12:45 PM EDT documented as of this encounter Last Filed Vital Signs Vital Sign Reading Time Taken Comments Blood Pressure 114/66 04/10/2016 1:01 PM EDT Pulse 70 04/10/2016 1:01 PM EDT Temperature - - Respiratory Rate - - Oxygen Saturation 99% 04/10/2016 1:01 PM EDT Inhaled Oxygen Concentration - - Weight 65.6 kg (144 lb 9.6 oz) 04/10/2016 1:01 PM EDT Height - - Body Mass Index 21.99 07/26/2015 3:53 PM EST documented in this encounter Progress Notes Aylin Fenton LPN - 04/10/2016 1:00 PM EDT Increase/duration in freq when bleed, spotted last 10d Ida Ron APRN - 04/10/2016 1:00 PM EDT Reason for visit: AUB HPI: Pt is a 50 yo G 4 P 3 female whom I saw in 08/2015 for AUB, EMB was negative. She d/c the progesterone but stayed on the Estradiol transdermal patch 0.1 mg twice weekly; we were cycling her on progesterone but she kept having irregular bleeding. She was doing fine, cycling regularly until December; shehad 2 periods in December; first one flowed for 8 days; December 24, then January 13, then February 23, then March 15. [place] spotting since the . She loves her Estradiol 0.1 mg patch in terms of her moods, and vaginal lubrication. She would like to know if the Mirena IUD would be appropriate for this. She has a friend who has this and is very happy with this. Medical, surgical, family hx reviewed and changes made. O: No exam A: Perimenopausal bleeding P: Pt to check with her insurance company. Brochure given and risks with insertion reviewed. She will take Ibuprofen 800 mg and hour before procedure. ADDENDUM: After pt left, realized she had an Unsatisfactory Pap in 06/2015. Will need Pap with IUD insertion documented in this encounter Plan of Treatment Upcoming Encounters Date Type Specialty Care Team Description 04/10/2022 Appointment Radiology Luis Michael MD [facility] UROLOGY DEPT. [place], [place] [address] (Wo rk) 04/10/2022 Office Visit Urology Luis Michael MD [facility] UROLOGY DEPT. [place], [place] [address] (Wo rk) 07/13/2022 Appointment Radiology Maile Hinojosa MD [facility] ENDOCRINOLOGY [place], [place] [address] (Wo rk) 07/13/2022 Office Visit Endocrinology Maile Hinojosa MD [facility] ENDOCRINOLOGY [place], [place] [address] (Wo rk) documented as of this encounter Visit Diagnoses Diagnosis Abnormal perimenopausal bleeding Premenopausal menorrhagia documented in this encounter Care Teams Agricultural Loan Officer Relationship Specialty Start Date End Date Monica Garcia MD PCP - General 01/06/13 02/27/17 [address] [place] [address] documented as of this encounter
--- OUTSIDE RECORDS SUMMARY | 2022-03-23 02:28 | XMS_ITS | Encounter Summary ---
:1965 Author Organization [facility] [place] [address] Care Team Providers Name Role Phone Monica Garcia MD Primary Care Provider Encounter Details Date Type Department Care Team Description 07/07/2015 Orders Only Obstetrics and Gynecology Ida Ron APRN at [facility] Victor Manuel cifuentes OBSTETRICS & [place] [address] [place] [address] [phone] (Wo rk) Social History Tobacco Use Types [...] Michael MD [facility] UROLOGY DEPT. [place], [place] [address] (Wo rk) 04/10/2022 Office Visit Urology Luis Michael MD [facility] UROLOGY DEPT. [place], [place] [address] (Wo rk) 07/13/2022 Appointment Radiology Maile Hinojosa MD [facility] ENDOCRINOLOGY [place], [place] [address] (Wo rk) 07/13/2022 Office Visit Endocrinology Maile Hinojosa MD [facility] ENDOCRINOLOGY [place], [place] [address] (Wo rk) documented as of this encounter Visit Diagnoses Not on filedocumented in this encounter Care Teams Cupola Charger Relationship Specialty Start Date End Date Monica Garcia MD PCP - General 01/06/13 02/27/17 [address] [place] [address] documented as of this encounter
--- OUTSIDE RECORDS SUMMARY | 2022-03-23 02:28 | XMS_ITS | Encounter Summary ---
:1965 Author Organization [facility] [place] [address] Care Team Providers Name Role Phone Monica Garcia MD Primary Care Provider Encounter Details Date Type Department Care Team Description 08/22/2015 Telephone Obstetrics and Gynecology at [facility] Ida juan APRN [facility] Victor Manuel cifuentes OBSTETRICS & [place] [address] [place] [address] [phone] (Wo rk) Social History Tobacco Use Types Packs/Day Years Used Date Never Smoker Smokeless Tobacco: Never Used Alcohol Use Standard Drinks/Week Comments No 0 (1 standard drink = 0.6 oz pure alcoho l) Sex Assigned at Date Recorded Female 01/29/2022 12:45 PM EDT documented as of this encounter Miscellaneous Notes Telephone Encounter - Ida Ron APRN - 08/22/2015 2:31 PM EST Pt needed a refill on her Prometrium but she con't to bleed every 2 weeks. I was trying to cycle eugenia the Prometrium but she is bleeding during it. For now I will d/c the Prometrium and obtain an endometrial bx. Appointment to be made. documented in this encounter Plan of Treatment Upcoming Encounters Date Type Specialty Care Team Description 04/10/2022 Appointment Radiology Luis Michael MD [facility] UROLOGY DEPT. [place], [place] [address] (Wo rk) 04/10/2022 Office Visit Urology Luis Michael MD [facility] UROLOGY DEPT. [place], [place] [address] (Wo rk) 07/13/2022 Appointment Radiology Maile Hinojosa MD [facility] ENDOCRINOLOGY [place], [place] [address] (Wo rk) 07/13/2022 Office Visit Endocrinology Maile Hinojosa MD [facility] ENDOCRINOLOGY [place], [place] [address] (Wo rk) documented as of this encounter Visit Diagnoses Not on filedocumented in this encounter Care Teams Quality Assurance/R&D Lab Technician Relationship Specialty Start Date End Date Monica Garcia MD PCP - General 01/06/13 02/27/17 [address] [place] [address] documented as of this encounter
--- OUTSIDE RECORDS SUMMARY | 2022-03-23 02:28 | XMS_ITS | Encounter Summary ---
:1965 Author Organization [facility] [place] [address] Care Team Providers Name Role Phone Monica Garcia MD Primary Care Provider Reason for Referral MRI/CAT Scan (Routine) - Closed Specialty Diagnoses / Procedures Referred By Contact Refer red To Contact Radiology Diagnoses Ultrasound for screening for growth restriction Ferdinand Michael Jr., MD [facility] Rad Ultrasound Procedures US Retroperitoneal Complete [facility] UROLOGY DEPT. [address] [address] Referral ID Status Reason Start Date Expiration Date Visits Requ ested Visits Authorized [id number] Closed 05/15/2016 05/15/2017 1 1 Reason for Visit MRI/CAT Scan (Routine) - Closed Specialty Diagnoses / Procedures Referred By Contact Refer red To Contact Radiology Diagnoses Ultrasound for screening for growth restriction Ferdinand Michael Jr., MD [facility] Rad Ultrasound Procedures US Retroperitoneal Complete [facility] [place] [address] [place] [address] Referral ID Status Reason Start Date Expiration Date Visits Requ ested Visits Authorized [id number] Closed 05/15/2016 05/15/2017 1 1 Encounter Details Date Type Department Care Team Description 07/26/2015 Hospital Encounter Ultrasound at [facility] Ferdinand Michael Ultrasound for [facility] MD [address] [facility] for [place] [facility] [place] [address] UROLOGY DEPT. [phone] [place] [address] Social History Tobacco Use Types Packs/Day Years Used Date Never Smoker Smokeless Tobacco: Never Used Alcohol Use Standard Drinks/Week Comments No 0 (1 standard drink = 0.6 oz pure alcoho l) Sex Assigned at Date Recorded Female 01/29/2022 12:45 PM EDT documented as of this encounter Medications at Time of Discharge Medication Sig Dispensed Refills Start Date End Date hydrocortisone (WESTCORT) Apply topically as 0 0.2 % Cream needed. multivitamin (THERAGRAN) Take 1 tablet by 0 tablet mouth daily. montelukast (SINGULAIR) Take 10 mg by mouth 0 10 mg tablet every morning. albuterol (ACCUNEB) 0.63 0 08/24/2010 mg/3 mL nebulizer solution NIFEdipine (ADALAT CC) 30 Take 30 mg by mouth 0 08/06/2018 mg Tablet Sustained daily. Release estradiol (GLENYS) 0.1 Place 1 patch onto 24 patch 3 201407/27/2016 mg/24 hr Patch Semiweekly the skin twice a week. Fluocinolone Acetonide 0 06/21/2015 Oil 0.01 % Drops polyethylene glycol 0 03/28/201508/29 (MIRALAX) 17 gram/dose Powder progesterone (PROMETRIUM) Take 1 capsule by 42 capsule 3 08/29/2015 200 mg Capsule mouth daily. The - 14 of each month ibuprofen (ADVIL;MOTRIN) Take 800 mg by 0 08/29/2015 800 mg Tablet mouth every 6 hours as needed. cetirizine (ZYRTEC) 10 mg Take 10 mg by mouth 0 02/12/2022 tablet daily. MOMETASONE FUROATE by Nasal route 0 (NASONEX NASL) daily. fluticasone-salmeterol Inhale 1 puff into 0 06/27/2017 (ADVAIR) 500-50 mcg/dose the lungs 2 times diskus inhaler daily as needed (winter time). FOLIC ACID/VITAMIN B COMP 0 08/24/2010 04/10/2016 W-C (B-COMPLEX WITH VITAMIN C ORAL) SUMATRIPTAN SUCCINATE 0 08/24/201001/2016 (IMITREX ORAL) tacrolimus (PROTOPIC) 0.1 1 Appl(s) Top Twice 0 1 02/12/2022 % ointment daily ERGOCALCIFEROL, VITAMIN 0 08/24/2010 0 04/10/2016 D2, (VITAMIN D ORAL) KETOCONAZOLE (NIZORAL Apply topically. 0 08/24/20 10 02/12/2022 TOP) documented as of this encounter Plan of Treatment Upcoming Encounters Date Type Specialty Care Team Description 04/10/2022 Appointment Radiology Ferdinand Michael MD [facility] UROLOGY DEPT. [place], [place] [address] (Wo rk) 04/10/2022 Office Visit Urology Ferdinand Michael MD [facility] UROLOGY DEPT. [place], [place] [address] (Wo rk) 07/13/2022 Appointment Radiology Maile Hinojosa MD [facility] ENDOCRINOLOGY [place], [place] [address] (Wo rk) 07/13/2022 Office Visit Endocrinology Maile Hinojosa MD [facility] ENDOCRINOLOGY [place], [place] [address] (Wo rk) documented as of this encounter Procedures Procedure Name Priority Date/Time Associated Comments Diagnosis US RETROPERITONEAL Routine 07/26/2015 3:16 Ultrasound for Resu lts for this COMPLETE PM EST screening procedur e are in for growth the results restriction section. documented in this encounter Results US Retroperitoneal Complete (07/26/2015 3:16 PM EST) Anatomical Region Laterality Modality Abdomen Ultrasound Specimen (Source) Anatomical Collection Method Collection Time Re ceived Time Location / / Volume Laterality 07/26/2015 3:12 PM EST Impressions 07/26/2015 3:41 PM EST Impression Ultrasound - ??Retroperitoneal Complete - Summary 5 mm non obstructing left renal stone, otherwise normal renal ultrasound. I ??viewed the images and agree with kristi villatoro interpretation. ? Weston Martin MD Electronically Signed Final Report ?? 03:41 pm Narrative 07/26/2015 3:41 PM EST Renal ?(Signed Final 07/26/2015 03:41 pm) Patient Info ID #: ? [id number] ?: ??[birth year] (49 yrs) Name: ? JESSICA ALBRIGHT ?Visit Date: 07/26/2015 03:12 pm Performed By Performed By: ? Ranjit Escobar RDMS Attending: ?Veroinca GILL, Butch Moss. Referred By: ?FERDINAND MICHAEL MD Service(s) Provided ??URETRO - Retroperitoneal Complete - I [id number] ? 14500 Indications ??kidney stones Comparison Ultrasound: 02/23/14 ------- History ------- Multiple episodes of stones left kidney . Right Kidney Size (cm) ?L: ??9.6 Cortical Thickness: ?Normal Cortical Echogenicity: ?? Normal Hydronephrosis: ?No sonogr aphic evidence Left Kidney Size (cm) ?L: ??10.4 Cortical Thickness: ?Normal Cortical Echogenicity: ?? Normal Hydronephrosis: ?No sonogr aphic evidence Comment: ?5 mm stone mid kidney. Urinary Bladder Pre-void (cm) ? L: ??10.4 ?A P: ??7.91 ?TV: ??9.96 Vol (ml): ?429.0 Comment: ?Partially distended, norm al contour Procedure Note Weston Martin MD - 07/26/2015Format ting of this note might be different from the original. Renal (Signed Final 07/26/2015 03:41 pm ) Patient Info ID #: [id number] : [birth year] (49 y rs) Name: JESSICA ALBRIGHT Visit Date: 07/26 03:12 pm Performed By Performed By: Maria Teresa Escobar RDMS Attending: Weston Martin MD Referred By: FERDINAND MICHAEL MD Service(s) Provided URETRO - Retroperitoneal Complete - IMG [id number] Indications kidney stones Comparison Ultrasound: 02/23/14 ------- History ------- Multiple episodes of stones left kidney . Right Kidney Size (cm) L: 9.6 Cortical Thickness: Normal Cortical Echogenicity: Normal Hydronephrosis: No sonographic evidence Left Kidney Size (cm) L: 10.4 Cortical Thickness: Normal Cortical Echogenicity: Normal Hydronephrosis: No sonographic evidence Comment: 5 mm stone mid kidney. Urinary Bladder Pre-void (cm) L: 10.4 AP: 7.91 TV: 9.96 Vol (ml): 429.0 Comment: Partially distended, normal co ntour IMPRESSION Impression Ultrasound - Retroperitoneal Complete - Summary 5 mm non obstructing left renal stone, otherwise normal renal ultrasound. I viewed the images and agree with the above interpretation. Weston Martin MD Electronically Signed Final Report 07/26 03:41 pm Ferdinand Michael Jr., MD IMG US GEN ORDERABLES documented in this encounter Visit Diagnoses Diagnosis Ultrasound for screening for f etal growth restriction screening for growth ret ardation using ultrasonics documented in this encounter Care Teams Video Producer Relationship Specialty Start Date End Date Monica Garcia MD PCP - General 01/06/13 02/27/17 [address] [place] [address] documented as of this encounter
--- OUTSIDE RECORDS SUMMARY | 2022-03-23 02:28 | XMS_ITS | Encounter Summary ---
:1965 [place] [address] Care Team Providers Name Role Phone Monica Garcia MD Primary Care Provider Reason for Visit Reason Comments Annual Exam Encounter Details Date Type Department Care Team Description 06/09/2014 Office Visit Obstetrics and CLINIC, DR KENZIE fleming s, Gynecology at [facility] [place] Ida Ron, [facility] OBSTETRICS & [place] [address] perimenopausal ([facility] Dx) [place] [address] Social History Tobacco Use Types Packs/Day Years Used Date Never Smoker Smokeless Tobacco: Never Used Alcohol Use Standard Drinks/Week Comments No 0 (1 standard drink = 0.6 oz pure alcoho l) Sex Assigned at Date Recorded Female 01/29/2022 12:45 PM EDT documented as of this encounter Last Filed Vital Signs Vital Sign Reading Time Taken Comments Blood Pressure 104/60 06/09/2014 3:51 PM EDT Pulse - - Temperature - - Respiratory Rate - - Oxygen Saturation - - Inhaled Oxygen Concentration - - Weight 62.6 kg (138 lb) 06/09/2014 3:51 PM EDT Height 172.7 cm (5' 8) 06/09/2014 3:51 PM EDT Body Mass Index 20.98 06/09/2014 3:51 PM EDT documented in this encounter Progress Notes Ida Ron, INSURANCE ADMINISTRATOR - 06/10/2014 8:23 AM EDT Reason for visit: Annual litigation examiner exam ROS: GI: Denies any leakage of stool. : Denies any leakage of urine or urinary frequency, urgency, or burning. CERTIFIED BENCH JEWELER TECHNICIAN: Reported yeast infection 3 weeks ago with white discharge, dryness, and itching noted; pt took OTC Monistat 1 day treatment and signs/symptoms resolved. Denies any pain with intercourse. + vaginaldryness. Endo: Feels Climara Pro patch is not working. Hot flashes have intensified and increased in frequency; states they feel like how they did prior to starting on the patch. Noticing some increased irritability as well. Not sleeping well with hot flashes, generally getting 2-3 hours of sleep per night, with 5-6 hours of sleep on a good night. Psych: States mood is fairly well, but admits to some episodes of feeling depressed during her family's move 5 months ago and now with prolonged recovery s/p knee surgery 3 months ago. Rates any current depression as a 0/10 on a 0-10 scale, with 10 being the worst. Acknowledges good support system in her mother and friends. Does admit to noticing the increasing lack of sunlight as a potential issue. Past Medical History Diagnosis Date ??? Asthma ??? Raynaud's disease ??? History of nephrolithiasis ??? Migraines ??? Abnormal glandular Papanicolaou smear of cervix age 15 ??? Vaginal infection PID at 15 Past Surgical History Procedure Date ??? Created by interface AlejandraSBrianne(MSUROL) Procedure Date: 01/16/2008 ??? Lithotripsy ??? Knee surgery 03/01/14 Right knee; patella surgery CERTIFIED BENCH JEWELER TECHNICIAN History: Pt is a 48 year old G 4 P 3 female. LMP 06/05/14; menses occur every 28 days while on patch, bleeding requires a regular pad to be changed a couple times per day for the first 2 days, thenmanaged with a panty liner, menses last 4-5 days, menses associated cramping pain 09/04. Surgical cont raception as had a vasectomy. Last pap 02/2012 negative; hx abnormal pap at age 15 that required cryotherapy. Hx PID at age 15; no other hx of STD's/STI's. Last mammogram 03/2013 negative. DEXA scan done in 01/2013 with lumbar total T-score -0.7; left hip total T-score -1.8, however femoral neck w ith noted T-score of -2.5 indicative of 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 Pt reports taking calcium and Vitamin D supplements; followed by endocrine. No previous colonoscopy. Family History Problem Relation Age of Onset ??? Osteoporosis Mother ??? Breast Cancer Paternal Grandmother 45 ??? Colorectal Cancer Neg Hx ??? Ovarian Cancer Neg Hx ??? Cancer Maternal Aunt lymph node CA ??? Depression Father ??? Depression Mother History Social History ??? Marital Status: Spouse Name: N/A Number of Children: N/A ??? Years of Education: N/A Occupational History ??? Not on file. Social History Main Topics ??? Smoking status: Never Smoker ??? Smokeless tobacco: Never Used ??? Alcohol Use: No ??? Drug Use: No ??? Sexually Active: Yes -- Male partner(s) Control/ Protection: Surgical Other Topics Concern ??? Not on file Social History Narrative with 3 children. Recently moved to a new home in their town of [place], [place]. 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 Eats relatively healthy with fruits, vegetables, yogurt, and milk; minimal meat. Eats 3 meals per day, does not drink tea or coffee, and occasionally drinks soda. Due to recent knee surgery she is going to PT 3 x per week and anticipates several more months of PT before she can return to exercising on her own. Outpatient Prescriptions Marked as Taking for the 06/09/14 encounter (Office Visit) with Ida Ron APRN Medication Sig Dispense Refill ??? amLODIPine (NORVASC) 5 mg Tablet Take 5 mg by mouth daily. ??? ibuprofen (ADVIL;MOTRIN) 800 mg Tablet Take 800 mg by mouth every 6 hours as needed. ??? [DISCONTINUED] estradiol-levonorgestrel (CLIMARA PRO) 0.045-0.015 mg/[address] 1 patch onto the skin once a week. No refills without 4Th Grade Math Teacher appt. 4 patch 0 ??? amitriptyline (ELAVIL) 10 mg tablet Take 10 mg by mouth nightly. ??? cetirizine (ZYRTEC) 10 mg tablet Take 10 mg by mouth daily. ??? MOMETASONE FUROATE (NASONEX NASL) by Nasal route daily. ??? fluticasone-salmeterol (ADVAIR) 500-50 mcg/dose diskus inhaler Inhale 1 puff into the lungs 2 times daily as needed. ??? multivitamin (THERAGRAN) tablet Take 1 tablet by mouth daily. ??? montelukast (SINGULAIR) 10 mg tablet Take 10 mg by mouth every morning. ??? Evening Jordan Oil 500 mg Cap ??? albuterol (ACCUNEB) 0.63 mg/3 mL nebulizer solution ??? FOLIC ACID/VITAMIN B COMP W-C (B-COMPLEX WITH VITAMIN C ORAL) ??? SUMATRIPTAN SUCCINATE (IMITREX ORAL) ??? tacrolimus (PROTOPIC) 0.1 % ointment 1 Appl(s) Top Twice daily ??? ERGOCALCIFEROL, VITAMIN D2, (VITAMIN D ORAL) Allergies as of 06/09/2014 - Review Complete 06/09/2014 Allergen Reaction Noted ??? Grass pollen-bermuda, std Other (See Comments) 12/07/2010 ??? Mold extracts Other (See Comments) 03/31/2013 BP 104/60 Ht 172.7 cm (5' 8) Wt 62.596 kg (138 lb) BMI 20.99 kg/m2 LMP 06/06/2014 PHYSICAL EXAM: Thyroid: Smooth, symmetrical Lungs- Clear Heart- HRR Breasts- Without suspicious masses, puckers or D/C Abdomen- Without masses or tenderness Pelvic exam- [] External Genitalia- pink, without lesions Urethral meatus- without masses or lesions Vagina- pink, no abn d/c Cervix- pink, no suspicious lesions, normal d/c, Cervix visualized Uterus- a/v, without masses, normal size and contour Adenexa- without masses Rectovaginal exam- confirms, good tone, no hemorrhoids A: Unremarkable litigation examiner exam Hot flushes, worsening P: Since climara Pro does not come in a higher dose, will switch to Combipatch 0.05/0.14 semi weekly. If she is still experiencing vasomotor symptoms, will switch to higher dose. She is aware it is twice weekly. AT Sulema Mcdowell Natalie - 06/09/2014 4:34 PM EDT S: Annual CERTIFIED BENCH JEWELER TECHNICIAN Exam. ROS: GI: Denies any leakage of stool. : Denies any leakage of urine or urinary frequency, urgency, or burning. CERTIFIED BENCH JEWELER TECHNICIAN: Reported yeast infection 3 weeks ago with white discharge, dryness, and itching noted; pt tookOTC Monistat 1 day treatment and signs/symptoms resolved. Denies any pain with intercourse. + vaginal dryness. Endo: Feels Climara Pro patch is not working. Hot flashes have intensified and increased in frequency; states they feel like how they did prior to starting on the patch. Noticing some increased irritability as well. Not sleeping well with hot flashes, generally getting 2-3 hours of sleep per night, with 5-6 hours of sleep on a good night. Psych: States mood is fairly well, but admits to some episodes of feeling depressed during her family's move 5 months ago and now with prolonged recovery s/p knee surgery 3 months ago. Rates any current depression as a 0/10 on a 0-10 scale, with 10 being the worst. Acknowledges good support system in her mother and friends. Does admit to noticing the increasing lack of sunlight as a potential issue. Past Medical History Diagnosis Date ??? Asthma ??? Raynaud's disease ??? History of nephrolithiasis ??? Migraines ??? Abnormal glandular Papanicolaou smear of cervix age 15 ??? Vaginal infection PID at 15 Past Surgical History Procedure Date ??? Created by [email or web address]) Procedure Date: 01/16/2008 ??? Lithotripsy ??? Knee surgery 03/01/14 Right knee; patella surgery Family History Problem Relation Age of Onset ??? Osteoporosis Mother ??? Breast Cancer Paternal Grandmother 45 ??? Colorectal Cancer Neg Hx ??? Ovarian Cancer Neg Hx ??? Cancer Maternal Aunt lymph node CA ??? Depression Father ??? Depression Mother History Social History ??? Marital Status: Spouse Name: N/A Number of Children: N/A ??? Years of Education: N/A Occupational History ??? Not on file. Social History Main Topics ??? Smoking status: Never Smoker ??? Smokeless tobacco: Never Used ??? Alcohol Use: No ??? Drug Use: No ??? Sexually Active: Yes -- Male partner(s) Control/ Protection: Surgical Other Topics Concern ??? Not on file Social History Narrative with 3 children. Recently moved to a new home in their town of [place], [place]. 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 Eats relatively healthy with fruits, vegetables, yogurt, and milk; minimal meat. Eats 3 meals per day, does not drink tea or coffee, and occasionally drinks soda. Due to recent knee surgery she is going to PT 3 x per week and anticipates several more months of PT before she can return to exercising on her own. Outpatient Prescriptions Marked as Taking for the 06/09/14 encounter (Office Visit) with Ida Ron APRN Medication Sig Dispense Refill ??? amLODIPine (NORVASC) 5 mg Tablet Take 5 mg by mouth daily. ??? ibuprofen (ADVIL;MOTRIN) 800 mg Tablet Take 800 mg by mouth every 6 hours as needed. ??? [DISCONTINUED] estradiol-levonorgestrel (CLIMARA PRO) 0.045-0.015 mg/[address] 1 patch onto the skin once a week. No refills without 4Th Grade Math Teacher appt. 4 patch 0 ??? amitriptyline (ELAVIL) 10 mg tablet Take 10 mg by mouth nightly. ??? cetirizine (ZYRTEC) 10 mg tablet Take 10 mg by mouth daily. ??? MOMETASONE FUROATE (NASONEX NASL) by Nasal route daily. ??? fluticasone-salmeterol (ADVAIR) 500-50 mcg/dose diskus inhaler Inhale 1 puff into the lungs 2 times daily as needed. ??? multivitamin (THERAGRAN) tablet Take 1 tablet by mouth daily. ??? montelukast (SINGULAIR) 10 mg tablet Take 10 mg by mouth every morning. ??? Evening Jordan Oil 500 mg Cap ??? albuterol (ACCUNEB) 0.63 mg/3 mL nebulizer solution ??? FOLIC ACID/VITAMIN B COMP W-C (B-COMPLEX WITH VITAMIN C ORAL) ??? SUMATRIPTAN SUCCINATE (IMITREX ORAL) ??? tacrolimus (PROTOPIC) 0.1 % ointment 1 Appl(s) Top Twice daily ??? ERGOCALCIFEROL, VITAMIN D2, (VITAMIN D ORAL) Allergies as of 06/09/2014 - Review Complete 06/09/2014 Allergen Reaction Noted ??? Grass pollen-bermuda, std Other (See Comments) 12/07/2010 ??? Mold extracts Other (See Comments) 03/31/2013 BP 104/60 Ht 172.7 cm (5' 8) Wt 62.596 kg (138 lb) BMI 20.99 kg/m2 LMP 06/06/2014 CERTIFIED BENCH JEWELER TECHNICIAN History: Pt is a 48 year old G 4 P 3 female. LMP 06/05/14; menses occur every 28 days while on patch, bleeding requires a regular pad to be changed a couple times per day for the first 2 days, thenmanaged with a panty liner, menses last 4-5 days, menses associated cramping pain 09/04. Surgical cont raception as had a vasectomy. Last pap 02/2012 negative; hx abnormal pap at age 15 that required cryotherapy. Hx PID at age 15; no other hx of STD's/STI's. Last mammogram 03/2013 negative. DEXA scan done in 01/2013 with lumbar total T-score -0.7; left hip total T-score -1.8, however femoral neck w ith noted T-score of -2.5 indicative of 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 Pt reports taking calcium and Vitamin D supplements; followed by endocrine. No previous colonoscopy. O: Gen: Pleasant female, elevating right leg on chair with knee brace and WENCESLAO hose in place, single crutch in room. Thyroid: No masses or nodules palpated. Heart: Regular upon auscultation. Lungs: Clear bilaterally. Breasts: No nodules, masses, or lesions noted. No nipple discharge present. ABD: Soft, non-tender. No masses palpated. Climara Pro patch to LLQ. CERTIFIED BENCH JEWELER TECHNICIAN Exam: External Genitalia: Decordova, no lesions visualized. Urethral Meatus: No masses or lesions. Vagina: [place]ord[place], no lesions noted however view of canal somewhat obstructed due to current bleeding from menses. Cervix: Smooth, pink, no CMT noted. Cervix visualized; no lesions noted. Uterus: Anteverted/Anteflexed, no masses palpated. Adnexa: Without masses. A: Pt is a 48 year old perimenopausal woman who does not routinely see her PCP and is here for her Annual 4Th Grade Math Teacher Exam; exam findings benign, however patient would benefit from improved management of menopausal symptoms. P: - Reviewed Endocrines total dietary and supplement intake of Calcium 1000- 1500 mg (no more than 1500 mg due to hx of kidney stones) and Vitamin D 800-1000 IU daily recommendations. - Reinforced positive ways of coping when feeling down, including talking with her mom and friends,as well as exercise once able for release of endorphins. Discussed phototherapy for help with lack of sunlight in winter months. Encouraged her to seek out her PCP should she have a questions or concerns regarding her mood, particularly with her family hx of depression. - Pt to start decreasing dosing of Jordan oil at night. - Climara patch d/c, and Combipatch ordered instead for systemic management of menopausal symptoms. - Next Mammogram due in 03/2015. - Next pap smear with HPV testing will be due in 05/2015. - Next DEXA scan will be due in 01/2015. - Pt is due for first colonoscopy, however she would like to defer at this time until her knee is better. - Pt assisted in setting up [employer] account in office today. - Pt in agreement with plan of care as noted above. Patient seen in conjunction with [facility] RESIDENTIAL MENTAL HEALTH WORKER Student, Sulema Mcdowell. documented in this encounter Plan of Treatment Upcoming Encounters Date Type Specialty Care Team Description 04/10/2022 Appointment Radiology Luis Michael MD [facility] UROLOGY DEPT. [place], [place] [address] (Rahul ascencio) 04/10/2022 Office Visit Urology Luis Michael MD [facility] UROLOGY DEPT. [place], [place] [address] (Rahul ascencio) 07/13/2022 Appointment Radiology Maile Hinojosa MD [facility] ENDOCRINOLOGY [place], [place] [address] (Wo rk) 07/13/2022 Office Visit Endocrinology Maile Hinojosa MD [facility] ENDOCRINOLOGY [place], [place] [address] (Wo rk) documented as of this encounter Visit Diagnoses Diagnosis Hot flushes, perimenopausal - Primary Symptomatic menopausal or female climact wendy states documented in this encounter Care Teams Ditch Digger Relationship Specialty Start Date End Date Monica Garcia MD PCP - General 01/06/13 02/27/17 [address] [place] [address] documented as of this encounter
--- OUTSIDE RECORDS SUMMARY | 2022-03-23 02:28 | XMS_ITS | Encounter Summary ---
:1965 Author Organization [facility] [place] [address] Care Team Providers Name Role Phone Monica Garcia MD Primary Care Provider Encounter Details Date Type Department Care Team Description 12/30/2015 Telephone Urology at [facility] Luis Michael Jr., MD [facility] [place] [address] UROLOGY DEPT. [phone] [place], [place] [address] (Wo rk) Social History Tobacco Use Types Packs/Day Years Used Date Never Smoker Smokeless Tobacco: Never Used Alcohol Use Standard Drinks/Week Comments No 0 (1 standard drink = 0.6 oz pure alcoho l) Sex Assigned at Date Recorded Female 01/29/2022 12:45 PM EDT documented as of this encounter Miscellaneous Notes Telephone Encounter - Lisbet Monterroso - 12/30/2015 2:56 PM EDT Pt called to state she cancelled the December appointment. She feels she is doing better. documented in this encounter Plan of Treatment Upcoming Encounters Date Type Specialty Care Team Description 04/10/2022 Appointment Radiology Luis Michael MD [facility] UROLOGY DEPT. [place], [place] [address] (Wo rk) 04/10/2022 Office Visit Urology Luis Michael MD [facility] UROLOGY DEPT. [place], [place] [address] (Wo rk) 07/13/2022 Appointment Radiology Maile Hinojosa MD [facility] ENDOCRINOLOGY [place], [place] [address] (Wo rk) 07/13/2022 Office Visit Endocrinology Maile Hinojosa MD [facility] ENDOCRINOLOGY [place], [place] [address] (Wo rk) documented as of this encounter Visit Diagnoses Not on filedocumented in this encounter Care Teams Business Solutions Architect Relationship Specialty Start Date End Date Monica Garcia MD PCP - General 01/06/13 02/27/17 [address] [place] [address] documented as of this encounter
--- OUTSIDE RECORDS SUMMARY | 2022-03-23 02:28 | XMS_ITS | Encounter Summary ---
:1965 Author Organization [facility] [place] [address] Care Team Providers Name Role Phone Monica Garcia MD Primary Care Provider Encounter Details Date Type Department Care Team Description 04/07/2015 Hospital Encounter XRay at [address] [place] [address] Social History Tobacco Use Types Packs/Day Years Used Date Never Smoker Smokeless Tobacco: Never Used Alcohol Use Standard Drinks/Week Comments No 0 (1 standard drink = 0.6 oz pure alcoho l) Sex Assigned at Date Recorded Female 01/29/2022 12:45 PM EDT documented as of this encounter Medications at Time of Discharge Medication Sig Dispensed Refills Start Date End Date multivitamin (THERAGRAN) Take 1 tablet by 0 tablet mouth daily. montelukast (SINGULAIR) Take 10 mg by mouth 0 10 mg tablet every morning. albuterol (ACCUNEB) 0.63 0 08/24/2010 mg/3 mL nebulizer solution polyethylene glycol 0 03/28/201508/29 (MIRALAX) 17 gram/dose Powder estradiol (GLENYS) 0.1 Place 1 patch onto 0 07/06/2015 mg/24 hr Patch Semiweekly the skin twice a week. progesterone (PROMETRIUM) Take 1 capsule by 42 [...] Description 04/10/2022 Appointment Radiology Luis Michael MD [facility] UROLOGY DEPT. [place] [id number] (Wo rk) 04/10/2022 Office Visit Urology Luis Michael MD [facility] UROLOGY DEPT. [place], [place] [address] (Wo rk) 07/13/2022 Appointment Radiology Maile Hinojosa MD [facility] ENDOCRINOLOGY [place], [place] [address] (Wo rk) 07/13/2022 Office Visit Endocrinology Maile Hinojosa MD [facility] ENDOCRINOLOGY [place], [place] [address] ( rk) documented as of this encounter Procedures Procedure Name Priority Date/Time Associated Diagnosis Comme nts DXA CENTRAL SPINE, Routine 04/07/2015 11:29 AM Re sults for this HIP, AND/OR WHOLE EDT procedure are in BODY (GENERIC) the results section. documented in this encounter Results Dexa central-spine, hip, and/or whole body (04/07/2015 11:29 AM EDT) Anatomical Region Laterality Modality C-spine, Hip N/A Radiographic Imaging Specimen (Source) Anatomical Collection Method Collection Time Re ceived Time Location / / Volume Laterality 04/07/2015 11:29 AM EDT Impressions 04/11/2015 4:44 PM EDT IMPRESSION: No significant change comparison the pre vious studies. Osteoporosis by WHO criteria. Estimating Fracture Risk: ? The relationship between [...] which you are encouraged to review. ? DEXA data sheets with BMD measurements a nd plots are available in [employer] under the imaging tab. Paper copies will be sent to providers without E-DH access. If you have received this report without th e data sheet and do not have access to [employer], please contact Radiology Transcrip tion at [phone] Saturday thru Saturday 8am-4pm. Narrative 04/11/2015 4:44 PM EDT EXAMINATION: DXA CENTRAL SPINEHIP AND OR WHOLE BODY CLINICAL HISTORY: osteoporosis;last 02/05 TECHNIQUE: Scans were acquired at the mbar spine, and the left hip. FINDINGS: Lowest T-score at the diagnost ic region of interest: T-score: -2.6, TENZIN: Femoral neck, WHO di agnosis: Osteoporosis. ......... Comparison......... Recent scan: 02/16/2013, Baseline scan: Total hip: Compared to the most recent scan, not si gnificant changed. Compared to the baseline scan, not signi ficantly changed. Total spine: Compared to the most recent scan, not si gnificantly changed. Compared to the baseline scan, not signi ficantly changed. Procedure Note Sanket Zhou MD - 04/11/2015Forma tting of this note might be different from the original. EXAMINATION: DXA CENTRAL SPINEHIP AND OR WHOLE BODY CLINICAL HISTORY: osteoporosis;last 02/05 TECHNIQUE: Scans were acquired at the mbar spine, and the left hip. FINDINGS: Lowest T-score at the diagnost ic region of interest: T-score: -2.6, TENZIN: Femoral neck, WHO di agnosis: Osteoporosis. ......... Comparison......... Recent scan: 02/16/2013, Baseline scan: Total hip: Compared to the most recent scan, not si gnificant changed. Compared to the baseline scan, not signi ficantly changed. Total spine: Compared to the most recent scan, not si gnificantly changed. Compared to the baseline scan, not signi ficantly changed. IMPRESSION IMPRESSION: No significant change comparison the pre vious studies. Osteoporosis by WHO criteria. Estimating Fracture Risk: ? The relationship between [...] which you are encouraged to review. ? DEXA data sheets with BMD measurements a nd plots are available in [employer] under the imaging tab. Paper copies will be sent to providers without E-DH access. If you have received this report without th e data sheet and do not have access to [employer], please contact Radiology Transcrip tion at [phone] Saturday thru Saturday 8am-4pm. Cuate Hall MD IMG DEXA ORDERABLES documented in this encounter Visit Diagnoses Diagnosis Osteoporosis Osteoporosis, unspecified documented in this encounter Care Teams Game Farm Helper Relationship Specialty Start Date End Date Monica Garcia MD PCP - General 01/06/13 02/27/17 [address] [place] [address] documented as of this encounter
--- OUTSIDE RECORDS SUMMARY | 2022-03-23 02:28 | XMS_ITS | Encounter Summary ---
:1965 Author Organization [facility] [place] [address] Care Team Providers Name Role Phone Monica Garcia MD Primary Care Provider Encounter Details Date Type Department Care Team Description 12/29/2014 Orders Only Endocrinology at [facility] Cuate Pearl MD [facility] [place] [address] ENDOCRINOLOGY [phone] [place], [place] [address] (Rahul ascencio) Social History Tobacco Use Types Packs/Day Years Used Date Never Smoker Smokeless Tobacco: Never Used Alcohol Use Standard Drinks/Week Comments No 0 (1 standard drink = 0.6 oz pure alcoho l) Sex Assigned at Date Recorded Female 01/29/2022 12:45 PM EDT documented as of this encounter Plan of Treatment Upcoming Encounters Date Type Specialty Care Team Description 04/10/2022 Appointment Radiology Luis Michael MD [facility] UROLOGY DEPT. [place], [place] [address] (Rahul rk) 04/10/2022 Office Visit Urology Luis Michael MD [facility] UROLOGY DEPT. [place], [place] [address] (Wo rk) 07/13/2022 Appointment Radiology Maile Hinojosa MD [facility] ENDOCR[facility] [place], [place] [address] (Wo rk) 07/13/2022 Office Visit Endocrinology Maile Hinojosa MD [facility] ENDOCRINOLOGY [place], [place] [address] (Wo rk) documented as of this encounter Visit Diagnoses Diagnosis Osteoporosis Osteoporosis, unspecified documented in this encounter Care Teams Accredited Farm Manager Relationship Specialty Start Date End Date Monica Garcia MD PCP - General 01/06/13 02/27/17 [address] [place] [address] documented as of this encounter
--- OUTSIDE RECORDS SUMMARY | 2022-03-23 02:28 | XMS_ITS | Encounter Summary ---
:1965 Author Organization [facility] [place] [address] Care Team Providers Name Role Phone Monica Garcia MD Primary Care Provider Encounter Details Date Type Department Care Team Description 06/18/2014 Hospital Encounter Mammography at [facility], DR KENZIE Dos Santos [facility] Monica Garcia MD [address] [place] [address] [place] [address] Social History Tobacco Use Types [...] 0.63 0 08/24/2010 mg/3 mL nebulizer solution amLODIPine (NORVASC) 5 mg Take 5 mg by mouth 0 04/07/2015 Tablet daily. ibuprofen (ADVIL;MOTRIN) Take 800 mg by 0 08/29/2015 800 mg Tablet mouth every 6 hours as needed. oxyCODONE-acetaminophen 0 03/11/2014 0 01/24/2015 (PERCOCET) 5-325 mg Tablet estradiol-norethindrone Place 1 patch onto 8 patch 12 05/2607/14/2014 (COMBIPATCH) 0.05-0.14 the skin twice a mg/24 hr Patch Semiweekly week. amitriptyline (ELAVIL) 10 Take 10 mg by mouth 0 04/07/2015 mg tablet nightly. gabapentin (NEURONTIN) 100 Take 100 mg by 0 01/24/2015 mg capsule mouth every morning. cetirizine (ZYRTEC) 10 mg Take 10 mg by mouth 0 02/12/2022 tablet daily. MOMETASONE FUROATE by Nasal route 0 (NASONEX NASL) daily. fluticasone-salmeterol Inhale 1 puff into 0 06/27/2017 (ADVAIR) 500-50 mcg/dose the lungs 2 times diskus inhaler daily as needed (winter time). Evening Perley Oil 500 0 08/24/2010 01/24/2015 mg Cap FOLIC ACID/VITAMIN B COMP 0 08/24/2010 04/10/2016 W-C (B-COMPLEX WITH VITAMIN C ORAL) SUMATRIPTAN SUCCINATE 0 08/24/201001/2016 (IMITREX ORAL) tacrolimus (PROTOPIC) 0.1 1 Appl(s) Top Twice 0 1 02/12/2022 % ointment daily ERGOCALCIFEROL, VITAMIN 0 08/24/2010 0 04/10/2016 D2, (VITAMIN D ORAL) KETOCONAZOLE (NIZORAL TOP) Apply topically. 0 02/12/2022 documented as of this encounter Plan of Treatment Upcoming Encounters Date Type Specialty Care Team Description 04/10/2022 Appointment Radiology Luis Michael MD [facility] UROLOGY DEPT. [place], [place] [address] (Wo rk) 04/10/2022 Office Visit Urology Luis Michael MD [facility] UROLOGY DEPT. [place], [place] [address] (Wo rk) 07/13/2022 Appointment Radiology Maile Hinojosa MD [facility] ENDOCRINOLOGY [place], [place] [address] (Wo rk) 07/13/2022 Office Visit Endocrinology Maile Hinojosa MD [facility] ENDOCRINOLOGY [place], [place] [address] (Wo rk) documented as of this encounter Procedures Procedure Name Priority Date/Time Associated Diagnosis Comme nts MAMMO CALL BACK NO Routine 06/18/2014 2:23 PM Inconclusive Res ults for this CHARGE EDT mammogram procedure are i n the results section. documented in this encounter Results Mammo call back No Charge (06/18/2014 2:23 PM EDT) Anatomical Region Laterality Modality Breast N/A Mammography Specimen (Source) Anatomical Collection Method Collection Time Re ceived Time Location / / Volume Laterality 06/18/2014 2:23 PM EDT Narrative 06/22/2014 12:46 PM EDT BILATERAL DIRECT DIGITAL 2D/3D MAMMOGRAM 06/09/14 WITH A TECHNICAL CALLBACK OF THE RIGHT CC VIEW 06/18/14 ?? CLINICAL INDICATION: Technical callback of the Right CC view 06/18/14 to get more posterior tissue. ?? TECHNIQUE: 2D/3D bilateral CC and MLO vi ews on 06/08/14 and RCC, LML, LMCC and LMML views on 06/18/14, all obtained wit h direct digital capture. This exam was evaluated by CAD version 8.3.17. ?? FINDINGS: The breasts are heterogeneousl y dense. ? No change or finding worrisome for maldiya priest is seen in either breast. ?? On 06/18/14 the images from the screenin g exam of 06/09/14 were reviewed and magnification views of calcifications in the lower, inner quadrant of the Left breast were obtained. Original reader fe lt that these were stable. However, I felt that magnification views were neede d. These were obtained and then compared to multiple prior exams includi ng routine CC and MLO and 90-degree ML views dating back to 10/20/03. There is a n approximately 2.0 x 2.5 x 1.5cm loose grouping of several calcifications in th e lower, outer quadrant at approximately 0400, 4cm to the nipple. O n true lateral views many of these layer consistent with milk of calcium. T he calcifications have increased somewhat in number of particles since 13 12 but there is no change in morphology or worrisome distribution. These are con sidered benign calcifications. ?? CONCLUSION: ?? (BIRADS Category 2) Left breast for ALIS GN calcifications, many of which are milk of calcium. ?? (BIRADS Category 1) NEGATIVE Right breas t. ?? Patient may return to routine screening. ?? is associated with is study. ?? Procedure Note Sherrie Lewis MD - 06/22/2014 BILATERAL DIRECT DIGITAL 2D/3D MAMMOGRAM 06/09/14 WITH A TECHNICAL CALLBACK OF THE RIGHT CC VIEW 06/18/14 CLINICAL INDICATION: Technical callback of the Right CC view 06/18/14 to get more posterior tissue. TECHNIQUE: 2D/3D bilateral CC and MLO vi ews on 06/08/14 and RCC, LML, LMCC and LMML views on 06/18/14, all obtained wit h direct digital capture. This exam was evaluated by CAD version 8.3.17. FINDINGS: The breasts are heterogeneousl y dense. No change or finding worrisome for maldiya cem is seen in either breast. On 06/18/14 the images from the screenin g exam of 06/09/14 were reviewed and magnification views of calcifications in the lower, inner quadrant of the Left breast were obtained. Original reader fe lt that these were stable. However, I felt that magnification views were neede d. These were obtained and then compared to multiple prior exams includi ng routine CC and MLO and 90-degree ML views dating back to 10/20/03. There is a n approximately 2.0 x 2.5 x 1.5cm loose grouping of several calcifications in th e lower, outer quadrant at approximately 0400, 4cm to the nipple. O n true lateral views many of these layer consistent with milk of calcium. T he calcifications have increased somewhat in number of particles since 13 12 but there is no change in morphology or worrisome distribution. These are con sidered benign calcifications. CONCLUSION: (BIRADS Category 2) Left breast for ALIS GN calcifications, many of which are milk of calcium. (BIRADS Category 1) NEGATIVE Right breas t. Patient may return to routine screening. is associated with is study. Weston Figueroa MD IMG MAMMO ORDERABLES documented in this encounter Visit Diagnoses Diagnosis Inconclusive mammogram documented in this encounter Care Teams Pre Coder Relationship Specialty Start Date End Date Monica Garcia MD PCP - General 01/06/13 02/27/17 [address] [place] [address] documented as of this encounter
--- OUTSIDE RECORDS SUMMARY | 2022-03-23 02:28 | XMS_ITS | Encounter Summary ---
:1965 Author Organization [facility] [place] [address] Care Team Providers Name Role Phone Janet Davey SACHA Primary Care Provider Reason for Visit Reason Comments Medication Refill Encounter Details Date Type Department Care Team Description 04/11/2014 Refill Obstetrics and Gynecology at Ramses Boyce MD [facility] Victor Manuel cifuentes OBSTETRICS & [place] [address] [place] [address] [phone] Social History Tobacco Use Types Packs/Day Years Used Date Never Smoker Smokeless Tobacco: Never Used Alcohol Use Standard Drinks/Week Comments Yes 0 (1 standard drink = 0.6 oz pure alcoho l) occasionally social Alcohol Habits Answer Date Recorded How often do you have a drink containing alcohol? Not asked How many drinks containing alcohol do you have on a Not aske d typical day when you are drinking? How often do you have six or more drinks on one Not asked occasion? Comment: occasionally social 12/07/2010 Sex Assigned at Date Recorded Female 01/29/2022 12:45 PM EDT documented as of this encounter Plan of Treatment Upcoming Encounters Date Type Specialty Care Team Description 04/10/2022 Appointment Radiology Luis Michael MD [facility] UROLOGY DEPT. [place], [place] [address] (Wo rk) 04/10/2022 Office Visit Urology Luis Michael MD [facility] UROLOGY DEPT. [place], [place] [address] (Wo rk) 07/13/2022 Appointment Radiology Maile Hinojosa MD [facility] ENDOCRINOLOGY [place], [place] [address] (Wo rk) 07/13/2022 Office Visit Endocrinology Maile Hinojosa MD [facility] ENDOCRINOLOGY [place], [place] [address] (Wo rk) documented as of this encounter Visit Diagnoses Not on filedocumented in this encounter Care Teams Auto Rebuilder Relationship Specialty Start Date End Date Janet Davey, ROW BOSS HOEING PCP - General Family Medicine 07/13/20 [address] [place] [address] documented as of this encounter
--- OUTSIDE RECORDS SUMMARY | 2022-03-23 02:28 | XMS_ITS | Encounter Summary ---
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 bleeding (AUB) [facility] [place] OBSTETRICS & [phone] GYNECOLOGY [phone] [place], [place] [address] Social History Tobacco Use Types Packs/Day Years Used Date Never Smoker Smokeless Tobacco: Never Used Alcohol Use Standard Drinks/Week Comments No 0 (1 standard drink = 0.6 oz pure alcoho l) Sex Assigned at Date Recorded Female 01/29/2022 12:45 PM EDT documented as of this encounter Last Filed Vital Signs Vital Sign Reading Time Taken Comments Blood Pressure 128/82 08/29/2015 7:36 AM EST Pulse - - Temperature - - Respiratory Rate - - Oxygen Saturation - - Inhaled Oxygen Concentration - - Weight 69.5 kg (153 lb 4.8 oz) 08/29/2015 7:36 AM EST Height - - Body Mass Index 23.31 07/26/2015 3:53 PM EST documented in this encounter Progress Notes Ida Ron APRN - 08/29/2015 7:46 AM EST Reason for visit: ALHAJIB HPI: I saw pt 06/28/15. 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 She is also using Prometrium 200 mg starting on the 15 of each month for 14 days. She was having regular cycles until the last couple months. She bled 06/12 for about 7 days, she neededregular pads for 2 days; liners the rest. She began to bleed again yesterday 06/27/15. She has a regular flow that she needs a regular pad, needing to change the pad a couple times a day. She could not recall exactly when the cycle before that was. No clots, she has cramps, she gets hot flushes in her legs and back and eventually her entire body. If she does not take the patch, she states she turns into a real witch. She has since kept bleeding irregularly; one week on, one week off. I had her d/c the Prometrium. 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 She has agreed to an EMB. Risks of procedure reviewed. O: Bimanual: Uterus acutely a/v. Internal: cervix cleansed with betadine x 3, balloted with sterile 2x2 gauze. Tenaculum placed at 12 o'clock on cervix. Pipelle easily admitted to 7 cm. Moderate amount of tissue obtained. Pt tolerated procedure well. Tenaculum removed. A: AUB P: Path pending Will con't with period tracker. If con't with AUB, will do a course of Aygestin. documented in this encounter Plan of Treatment Upcoming Encounters Date Type Specialty Care Team Description 04/10/2022 Appointment Radiology Luis Michael MD [facility] UROLOGY DEPT. [place], [place] [address] (Wo rk) 04/10/2022 Office Visit Urology Luis Michael MD [facility] UROLOGY DEPT. [place], [place] [address] (Wo rk) 07/13/2022 Appointment Radiology Maile Hinojosa MD [facility] ENDOCRINOLOGY [place], [place] [address] (Wo rk) 07/13/2022 Office Visit Endocrinology Maile Hinojosa MD [facility] ENDOCRINOLOGY [place], [place] [address] (Wo rk) documented as of this encounter Procedures Procedure Name Priority Date/Time Associated Diagnosis Comme nts SPECIMEN TO Routine 08/29/2015 8:20 AM Abnormal uterine Resul ts for this PATHOLOGY (NON-OR) EST bleeding (AUB) procedu re are in the results section. SURGICAL PATHOLOGY Routine 08/29/2015 8:20 AM Res ults for this REPORT EST procedure are i n the results section. documented in this encounter Results Surgical Pathology Report (08/29/2015 8:20 AM EST) Component Value Ref Test Analysis Performed At [facility] Range Method Time Signature Surgical [id number] ? Location: [address] [place] [address] Pathology [facility] Report The signing pathologist has (i) examined the relevant preparation(s) for the specimen(s) and (ii) rendered or confirmed the diagnosis(es) . . ?Surgic al Pathology DIAGNOSIS Endometrial biopsy: 1. Fragments of benign proliferative endometrium intermixed with blood clot. 2. No evidence of hyperplasia or endometritis. CR-0 08/31/15 LJT 08/31/15 Verified by: ? Yolanda GILL, Jessica Gee ?Pathologist ?(Electronic Signature ) The attending pathologist whose signature appears on this re port has reviewed all diagnostic slides and has edited the gross and/ or microscopic portion of the report in crissy dering the final pathologic diagnosis. CLINICAL INFORMATION Specimen Submitted: A - Endometrial biopsy Clinical History: Abnormal uterine bleeding Clinical Diagnosis: Same SPECIMEN PROCESSING A - Labeled/Fixative: Patient demographics, formalin. Quantity/Size: Fragments, collectively 1.0 x 1.0 x 0.5 cm. Tissue Description: Soft, pink-reyes mucoid tissue. Sections/Processing: (T1) ??ejr Specimen (Source) Anatomical Collection Method Collection Time Re ceived Time Location / / Volume Laterality 08/29/2015 8:20 AM EST Ida Ron APRN PATHOLOGY/CYTOLOGY ORDERABLE S Performing Organization Address City/State/ZIP Code Phon e Number [address] CERNER MILLENNIUM Specimen to Pathology (NON-OR) (08/29/2015 8:20 AM EST) Specimen Anatomical Collection Method Collection Time Receive d Time (Source) Location / / Volume Laterality AP Specimen 08/29/2015 8:20 AM 6 8:20 EST AM EST Narrative CERNER MILLENNIUM - 08/29/2015 8:[address] Specimen requisition ordered. ??Separate Pathology report to follow Taryn Banks MD PATHOLOGY/CYTOLOGY ORDERABLE S Performing Organization Address City/State/[place] [address] CERNER MILLENNIUM documented in this encounter Visit Diagnoses Diagnosis Abnormal uterine bleeding (AUB) documented in this encounter Care Teams Charhouse Worker Relationship Specialty Start Date End Date Monica Garcia MD PCP - General 01/06/13 02/27/17 [address] [place] [address] documented as of this encounter
--- OUTSIDE RECORDS SUMMARY | 2022-03-23 02:28 | XMS_ITS | Encounter Summary ---
:1965 Author Organization [facility] [place] [address] Care Team Providers Name Role Phone Monica Garcia MD Primary Care Provider Reason for Visit Reason Comments Follow-up Encounter Details Date Type Department Care Team Description 07/26/2015 Office Visit [place]rology [place] [facility] Luis Michael Jr., Nephrolithiasis [facility] [place] [address] [facility] [phone] UROLOGY DEPT. [place], [place] [address] (Wo rk) Social History Tobacco Use Types Packs/Day Years Used Date Never Smoker Smokeless Tobacco: Never Used Alcohol Use Standard Drinks/Week Comments No 0 (1 standard drink = 0.6 oz pure alcoho l) Sex Assigned at Date Recorded Female 01/29/2022 12:45 PM EDT documented as of this encounter Last Filed Vital Signs Vital Sign Reading Time Taken Comments Blood Pressure 132/77 07/26/2015 3:53 PM EST Pulse 72 07/26/2015 3:53 PM EST Temperature 36.6 ??C (97.9 ??F) 07/26/2015 3:53 PM EST Respiratory Rate 20 07/26/2015 3:53 PM EST Oxygen Saturation 100% 07/26/2015 3:53 PM EST Inhaled Oxygen Concentration - - Weight 67.1 kg (148 lb) 07/26/2015 3:53 PM EST Height 172.7 cm (5' 8) 07/26/2015 3:53 PM EST Body Mass Index 22.5 07/26/2015 3:53 PM EST documented in this encounter Progress Notes Luis Michael Jr., MD - 07/26/2015 4:34 PM EST HPI Ms. Stacy Albright returns for follow up regarding urolithiasis. She is s/p SWL in 2007 and more recent left ureterscopy in 07/2010. Although ultrasounds have suggested a 4-5 mm left lower pole stone, CT confirmed no residual stone. In the 18 months since her last visit, she had been well until approximately 2 months ago (May 2015). She has noted dull left flank pain, 2-4/10 in severity, without radiation, hematuria, nausea, or emesis. She states it feels like her typical stone pain. Review of Systems Constitution: Negative for chills and fever. Gastrointestinal: Positive for abdominal pain. Genitourinary: Positive for flank pain. Negative for [...] Soft. She exhibits no distension. There is tenderness (scant LUQ tenderness). There is norebound and no guarding. Genitourinary: No CVA tenderness to percussion on right Mild Right low back/CVA tenderness to percussion on left Neurological: She is alert and oriented to person, place, and time. Skin: She is not diaphoretic. Psychiatric: She has a normal mood and affect. Her behavior is normal. Vitals reviewed. Stone analysis: 90% calcium oxalate dehydrate and 10% calcium phosphate. Imaging studies: I independently reviewed the renal ultrasound from today. This reveals no evidence of hydronephrosis, hydroureter or definite stones. Note made of non-shadowing 4-5 mm echogenic focus mid left kidney, reported as possible non-obstructing left renal stone Impression/Plan: Left flank ache of unclear etiology. She is concerned it may be related to stone. Ioffered CT to assess if this truly is a stone in the left kidney, as well as to assess for other possible etiology. She declines at this point, feels pain is very tolerable, and will plan return visit in December/ January 2016. If pain worsens, she will consider CT and will contact us. She will call or returnsooner if new interval problems arise. documented in this encounter Plan of Treatment Upcoming Encounters Date Type Specialty Care Team Description 04/10/2022 Appointment Radiology Luis Michael MD [facility] UROLOGY DEPT. [place], [place] [address] (Wo rk) 04/10/2022 Office Visit Urology Luis Michael MD [facility] UROLOGY DEPT. [place], [place] [address] (Wo rk) 07/13/2022 Appointment Radiology Maile Hinojosa MD [facility] ENDOCRINOLOGY [place], [place] [address] (Wo rk) 07/13/2022 Office Visit Endocrinology Maile Hinojosa MD [facility] ENDOCRINOLOGY [place], [place] [address] (Wo rk) documented as of this encounter Visit Diagnoses Diagnosis Nephrolithiasis Calculus of kidney documented in this encounter Care Teams Program Aide Group Work Relationship Specialty Start Date End Date Monica Garcia MD PCP - General 01/06/13 02/27/17 [address] [place] [address] documented as of this encounter
--- OUTSIDE RECORDS SUMMARY | 2022-03-23 02:28 | XMS_ITS | Encounter Summary ---
:1965 Author Organization [facility] [place] [address] Care Team Providers Name Role Phone Monica Garcia MD Primary Care Provider Encounter Details Date Type Department Care Team Description 02/23/2014 Hospital Encounter Ultrasound at [facility] [place] [address] Social History Tobacco Use Types Packs/Day [...] 0.63 0 08/24/2010 mg/3 mL nebulizer solution estradiol-levonorgestrel Place 1 patch onto 4 patch 2 04/23/2014 (CLIMARA PRO) 0.045-0.015 the skin once a mg/24 hr week. amitriptyline (ELAVIL) 10 Take 10 mg [...] inhaler daily as needed (winter time). Evening [place] Oil 500 0 08/24/2010 01/24/2015 mg Cap [...] Description 04/10/2022 Appointment Radiology Ferdinand Michael MD [facility] UROLOGY DEPT. [place], [place] [address] (Wo rk) 04/10/2022 Office Visit Urology Ferdinand Michael MD [facility] UROLOGY DEPT. [place], [place] [address] (Wo rk) 07/13/2022 Appointment Radiology Maile Hinojosa MD [facility] ENDOCRINOLOGY [place], [place] [address] (Wo rk) 07/13/2022 Office Visit Endocrinology Maile Hinojosa MD [facility] ER DR ENDOCRINOLOGY [place], [place] [address] (Wo rk) documented as of this encounter Procedures Procedure Name Priority Date/Time Associated Comments Diagnosis US RETROPERITONEAL Routine 02/23/2014 4:21 Kidney stones Resul ts for this COMPLETE PM EDT procedure are i n the results section. documented in this encounter Results US retroperitoneal complete (02/23/2014 4:21 PM EDT) Anatomical Region Laterality Modality Abdomen Ultrasound Specimen (Source) Anatomical Collection Method Collection Time Re ceived Time Location / / Volume Laterality 02/23/2014 4:21 PM EDT Narrative 02/23/2014 5:21 PM EDT ? Renal ?(Signed Final 02/23/2014 05:20 pm) Patient Info ID: ?[id number] ?: ??[birth year] (48 yrs) Name: ?JESSICA GTZ ?Visit Date: 02/23/2014 04:19 pm Performed By Performed By: ?Mariann Leonard RDMS Associate: ? Bobby Barboza MD Attending: ? Genie Carrasco MD Referred By: ? FERDINAND MICHAEL MD Service(s) Provided URETRO - Retroperitoneal Complete - [phone] [id number] ? [id number] Indications Hx of kidney stones Comparison Renal/bladder ultrasound 01/06/13. Right Kidney Size (cm) ?L: ??9.4 Cortical Thickness: ? Normal Cortical Echogenicity: ??Normal Hydronephrosis: ? No sonograp hic evidence Comment: ?No renal calculi seen. Left Kidney Size (cm) ?L: ??10.1 Cortical Thickness: ? Normal Cortical Echogenicity: ??Normal Hydronephrosis: ? No sonograp hic evidence Comment: ?No renal calculi seen. Urinary Bladder Comment: ?Partially distended, norm al contour. Impression Ultrasound - ??Retroperitoneal Complete - Summary No sonographically evident nephrolithia sis or hydronephrosis. Normal bladder. I ??viewed the images and agree with kristi christianson above interpretation. Thank you for allowing us to participat e in the care of JESSICA GTZ. Please do not hesitate to call if you have any questions. ?Genie lopez MD Electronically Signed Final Report ?? 05:20 pm Film and interpretation reviewed by the attending Procedure Note Genie Carrasco MD - 02/23/2014Formatt ing of this note might be different from the original. Renal (Signed Final 02/23/2014 05:20 pm) Patient Info ID: [id number] : [birth year] (48 yrs ) Name: JESSICA GTZ Visit Date: 02/23 04:19 pm Performed By Performed By: Mariann Leonard RDMS Associate: Bobby Barboza MD Attending: Luna GILL, Genie Dumont Referred By: FERDINAND MICHAEL MD Service(s) Provided URETRO - Retroperitoneal Complete - [phone] [id number] Indications Hx of kidney stones Comparison Renal/bladder ultrasound 01/06/13. Right Kidney Size (cm) L: 9.4 Cortical Thickness: Normal Cortical Echogenicity: Normal Hydronephrosis: No sonographic evidence Comment: No renal calculi seen. Left Kidney Size (cm) L: 10.1 Cortical Thickness: Normal Cortical Echogenicity: Normal Hydronephrosis: No sonographic evidence Comment: No renal calculi seen. Urinary Bladder Comment: Partially distended, normal co ntour. Impression Ultrasound - Retroperitoneal Complete - Summary No sonographically evident nephrolithia sis or hydronephrosis. Normal bladder. I viewed the images and agree with the above interpretation. Thank you for allowing us to participat e in the care of JESSICA GTZ. Please do not hesitate to call if you have any questions. Genie Carrasco MD Electronically Signed Final Report 02/23 05:20 pm Film and interpretation reviewed by the attending Ferdinand Michael Jr., MD [facility] ORDERABLES documented in this encounter Visit Diagnoses Diagnosis Kidney stones Calculus of kidney documented in this encounter Care Teams Development Rep Relationship Specialty Start Date End Date Monica Garcia MD PCP - General 01/06/13 02/27/17 [address] [place] [address] documented as of this encounter
--- OUTSIDE RECORDS SUMMARY | 2022-03-23 02:28 | XMS_ITS | Encounter Summary ---
:1965 Author Organization [facility] [address] Care Team Providers Name Role Phone Monica Garcia MD Primary Care Provider Reason for Visit Reason Comments Gynecologic Exam last pap 03/06/12 infection o r repair Encounter Details Date Type Department Care Team Description 04/24/2013 Office Visit Obstetrics and Ramses Birch MD Encounter for annual health examination (Primary Dx); Gynecology at [facility] Well woman exam with routine gynecological exam [facility] [address] [facility] & [place], [place] GYNECOLOGY [address] [place] [address] [phone] Social History Tobacco Use Types Packs/Day Years [...] Sign Reading Time Taken Comments Blood Pressure 120/60 04/24/2013 9:31 AM EDT Pulse - - Temperature - - Respiratory Rate - - Oxygen Saturation - - Inhaled Oxygen Concentration - - Weight 66.5 kg (146 lb 8 oz) 04/24/2013 9:31 AM EDT Height 172.7 cm (5' 8) 04/24/2013 9:31 AM EDT Body Mass Index 22.28 04/24/2013 9:31 AM EDT documented in this encounter Progress Notes Bernard Basurto MD - 04/28/2013 11:15 AM EDT The case was discussed with Dr. Birch at the time of the visit or immediately after the visit. The assessment and plan were formulated in discussion with me and I agree with them as documented. Ramses Birch - 04/24/2013 9:37 AM EDT Annual Visit Stacy Albright [id number] 04/24/2013 MONICA GARCIA MD Reason for Visit: Stacy is a 47 y.o. 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 She also presents with the following complaints/concerns: She would like to discuss when it would be appropriate to stop using her hormonal patch, Climara Pro. Per gynecologic history below she continues with regular menses and is not having intermenstrual spotting that she had prior to starting the patch. She reports that if she forgets to place her patch she will start spotting again. At prior visits she had also had concerns over an area of her labia loosing volume, this has not been occurring since she was last seen. We discussed that at some point it would be appropriate to trial withdrawal of the hormonal patch and then check her FSH. There is some benefit from the estrogen to her 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 We discussed trialing withdrawal either in 6 months or at her next annual. She is concerned that she will have return of vaginal dryness with dyspareunia. We discussed trialing topical estrogen at that time. Interval history includes development of shingles. They have resolved, however she continues on amitryptiline for neuropathy. She also had pertussis, managed as outpatient. LMP Patient's last menstrual period was 03/24/2013. Menstrual cycle every 21-28 days lasting 5 days.medium flow. No cramps. No intermenstrual bleeding since starting hormonal patch. 11 years old at menarche. Is sexually active. No post-coital bleeding/dyspareunia. No problems with sexual function. Remote history of STDs with PID at age 15. No new sexual partners. Last pap on 2011. Results NILM. She has remote history of abnormal paps s/p cryotherapy. No history of sexual, physical, mental abuse. Health Maintenance: Exercise: Walking 1-3 Diet: Low salt, low cholesterol, very infrequent fast food Calcium intake/day: Per the last note from Endocrinology who are managing her osteoporosis: Diet-Increase dietary calcium intake like milk and yogurt . Recommend total Calcium (Dietary+supplement) of 1000-1500mg and vitamin D3 800- 1000 IU daily.Patient should not exceed 1500 mg of calcium daily givenher history of kidney stones. Immunizations: Immunization status: stated current. Pneumovax yes. Flu shot gets annually, planning on it this year. Planning on shingles at age 48 Seatbelt Use: Always Self Breast Exam: no Mammogram: Normal, scheduled today Cholesterol: Done in 2010 based on record review Colon Cancer Screening: Not indicated at this age Thyroid: Done in 2010 Fasting Glucose: Will follow with PCP whether this has been done recently and repeat if needed. 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 Asthma ??? Raynaud's disease ??? History of nephrolithiasis ??? Migraines ??? Abnormal glandular Papanicolaou smear of cervix age 15 ??? Vaginal infection PID at 15 Past Surgical History Procedure Date ??? Created by interface [email or web address](MSUROL) Procedure Date: 01/16/2008 ??? Lithotripsy Family History Problem Relation Age of Onset ??? Osteoporosis Mother ??? Breast Cancer Paternal Grandmother 45 ??? Colorectal Cancer Neg Hx ??? Ovarian Cancer Neg Hx Mother recently with memory issues History Social History ??? Marital Status: Spouse Name: N/A Number of Children: N/A ??? Years of Education: N/A Occupational History ??? Not on file. Social History Main Topics ??? Smoking status: Never Smoker ??? Smokeless tobacco: Never Used ??? Alcohol Use: Yes occasionally social ??? Drug Use: No ??? Sexually Active: Yes -- Male partner(s) Control/ Protection: Surgical Other Topics Concern ??? Not on file Social History Narrative ??? No narrative on file Medications: has a current medication list which includes the following prescription(s): amitriptyline, climara pro, multivitamin, evening primrose oil, b complex with vitamin c, sumatriptan succinate, protopic, ergocalciferol (vitamin d2), ketoconazole, gabapentin, cetirizine, mometasone furoate, fluticasone-salme terol, montelukast, and albuterol. Allergies Allergen Reactions ??? Grass Pollen-[place], Standard Other (See Comments) Runny nose, itching, sneezing ??? Mold Extracts Other (See Comments) Sneezing and runny nose ROS: Constitutional - No fevers, fatigue, night sweats, unanticipated changes in weight. HEENT - No new headaches, hearing changes. She has had some vision changes recently, specifically decreased acuity Pulmonary - No cough or SOB. Cardiac - No CP or palpitations. GI - No abdominal pain, N/V, diarrhea, melena, (+)constipation - drinks water, bran, ocassionaly takes stool softener, - No dysuria, hematuria, polyuria. No vaginal discharge. Endocrine - No intolerance to heat/cold. Musculoskeletal - No new muscle/joint aches. Heme - (+) easy bruising not new and is stable No hard to control bleeding. Neuro - No dizziness. Skin - No rashes. (+) shingles resolved Psych - No depression/anxiety. Mild depression since weaned from anti-depressant. Physical Exam BP 120/60 Ht 172.7 cm (5' 8) Wt 66.452 kg (146 lb 8 oz) BMI 22.28 kg/m2 LMP 03/24/2013 General: Well developed female. Skin: Pigmentation changes in distribution of prior shingles on abdomen Neck: no thyromegaly or lymphadenopathy Back: no CVA tenderness Lungs: clear to auscultation bilaterally, no wheezes or rales Heart: RRR, normal S1/S2, no murmurs/rubs/gallops Breast: no skin changes, no masses palpated, no nipple discharge, no axillary or supraclavicular lymphadenopathy Abdomen: no scars; + bowel sounds, no masses or hepatosplenomegaly; soft, nontender, nondistended Extremities: No calf tenderness or lower ext edema Neuro: grossly intact Pelvic Exam: Normal external female genitalia with a normal pubic hair distribution. The [place]'s glands are unremarkable. The urethra is without masses. The urethral meatus is without prolapse. The vagina is pink and rugated. There are no vaginal or cervical lesions. Bimanual exam reveals midline, anteverted, mobile, uterus without nodularity or tenderness. No adnexal fullness or tenderness. The rectovaginal exam reveals no masses or rectovaginal septum nodularity or thickening. The anal sphincter tone is normal and there are no rectal masses. The stool is grossly heme negative. Assessment: Stacy is a 47 y.o. year old pre-menopausal female with osteoporosis managed by Endocrine, on Climeara patch, who presents for her annual well-women exam. Benign exam. No issues. Plan: Preventative issues discussed including exercise Nutritional/Exercise counseling provided This patient sees her primary care provider for age and disease specific screening not related to gynecological care Return for pelvic/breast exam in 1 year Continue Clymera patch ---At age 48 will withdraw patch and check FSH to evaluate menopausal status. If menopausal can discontinue and start topical vaginal estrogen Patient to follow with her PCP whether is due for fasting sugar and TSH. The patient was discussed with Dr. Sherine BIRCH MD PGY4 CC: MONICA GARCIA MD documented in this encounter Plan of Treatment Upcoming Encounters Date Type Specialty Care Team Description 04/10/2022 Appointment Radiology Luis Michael MD [facility] UROLOGY DEPT. [place], [place] [address] (Wo rk) 04/10/2022 Office Visit Urology Luis Michael MD [facility] UROLOGY DEPT. [place], [place] [address] (Wo rk) 07/13/2022 Appointment Radiology Maile Hinojosa MD [facility] ENDOCRINOLOGY [place], [place] [address] (Wo rk) 07/13/2022 Office Visit Endocrinology Maile Hinojosa MD [facility] ENDOCRINOLOGY [place], [place] [address] (Wo rk) documented as of this encounter Visit Diagnoses Diagnosis Encounter for annual health examination - Primary Routine general medical examination at a health care facility Well woman exam with routine gynecologic al exam Routine gynecological examination documented in this encounter Care Teams Associate Professor Of Geology Relationship Specialty Start Date End Date Monica Garcia MD PCP - General 01/06/13 02/27/17 [address] [place] [address] documented as of this encounter
--- OUTSIDE RECORDS SUMMARY | 2022-03-23 02:28 | XMS_ITS | Encounter Summary ---
:1965 Author Organization [facility] [place] [address] Care Team Providers Name Role Phone Monica Garcia MD Primary Care Provider Reason for Visit Reason Comments Contraception Encounter Details Date Type Department Care Team Description 05/01/2016 Office Visit Obstetrics and Ida Ron, Encounter for IUD insertion; Gynecology at [facility] CATTLE DEHORNER Unsatisfactory cervical Papanicolaou sme ar; [facility] Vulvar pa in [facility] [address] [place] [facility] & [id number] GYNECOLOGY [phone] [place], [place] [address] Social History Tobacco Use Types Packs/Day Years Used Date Never Smoker Smokeless Tobacco: Never Used Alcohol Use Standard Drinks/Week Comments No 0 (1 standard drink = 0.6 oz pure alcoho l) Sex Assigned at Date Recorded Female 01/29/2022 12:45 PM EDT documented as of this encounter Last Filed Vital Signs Vital Sign Reading Time Taken Comments Blood Pressure 110/63 05/01/2016 4:18 PM EDT Pulse 68 05/01/2016 4:18 PM EDT Temperature 36.3 ??C (97.4 ??F) 05/01/2016 4:18 PM EDT Respiratory Rate 16 05/01/2016 4:18 PM EDT Oxygen Saturation 100% 05/01/2016 4:18 PM EDT Inhaled Oxygen Concentration - - Weight 65.8 kg (145 lb 1.6 oz) 05/01/2016 4:18 PM EDT Height 172.7 cm (5' 8) 05/01/2016 4:18 PM EDT Body Mass Index 22.06 05/01/2016 4:18 PM EDT documented in this encounter Progress Notes Ida Ron APRN - 05/01/2016 4:20 PM EDT REASON FOR VISIT: IUD Placement, Pap, vulvar dryness Dog Bather: pt reports starting after her period stopped after she saw me 04/10/2016, she began experiencing, vulvar pain left labia. She inspected the area, one labia was smaller than the other, minimal redness. Couple have had intercourse but it was painful. Prior to this, no pain. She has had this in the past x 1, she can't remember what the treatment was nor who she saw. I reviewed notes and can not findanything. Last Pap last year unsatisfactory I saw the pt recently. She has AUB, EMB neg, she is on ERT and would like a Mirena in to control bleeding and prevent endometrial hyperplasia. She has read the pt information packet and has signed the consent form. She is aware of the risks of the procedure. UFP today is neg. O: Pelvic: External genitalia: WNL. Vulva all WNL. No lesions or redness noted. When asked to point to where labial discomfort is; she points to inner aspect of left labia mj. There is a small vericosity seen there. Uterus a/v, normal size and contour. Under sterile procedure, speculum placed, Pap smear obtained, cervix swabbed with iodine and ballotted with 2x2 gauze. Tenaculum placed on cervix at 12 o'clock. Uterus was then sound to 8 cm. Mirena IUD was inserted easily. Tenaculum removed, string trimmed to 2 cm. Pt tolerated procedure well. A: Mirena IUD insertion Vulvar varicosity Pap smear P: Pt aware of signs and symptoms of infection or other complications assoc with IUD Pt will RTC in one month for string check. Pap pending Ice to vulvar varicosity prn documented in this encounter Plan of Treatment Upcoming Encounters Date Type Specialty Care Team Description 04/10/2022 Appointment Radiology Luis Michael MD [facility] UROLOGY DEPT. [place], [place] [address] (Wo rk) 04/10/2022 Office Visit Urology Luis Michael MD [facility] UROLOGY DEPT. [place], [place] [address] (Wo rk) 07/13/2022 Appointment Radiology Maile Hinojosa MD [facility] ENDOCRINOLOGY [place], [place] [address] (Wo rk) 07/13/2022 Office Visit Endocrinology Maile Hinojosa MD [facility] ENDOCRINOLOGY [place], [place] [address] (Wo rk) documented as of this encounter Procedures Procedure Name Priority Date/Time Associated Comments Diagnosis HPV Routine 05/01/2016 5:32 PM Results f or this EDT procedure are i n the results section. DETENTION DEPUTY CYTOLOGY Routine 05/01/2016 5:32 PM Results f or this INTERPRETATION EDT procedure are in the results section. DETENTION DEPUTY CYTOLOGY FINAL Routine 05/01/2016 5:32 PM Res ults for this REPORT EDT procedure are i n the results section. CYTOPATHOLOGY Routine 05/01/2016 5:32 PM Encounter for IUD Res ults for this GYNECOLOGICAL EDT insertion procedure are in the results section. documented in this encounter Results DETENTION DEPUTY Cytology Interpretation (05/01/2016 5:32 PM EDT) [facility] Method Time Signature Dog Bather [facility]ology [facility] Comment: Dog Bather Cytology Final Report Acces kendall: [id number] Endocerv[address] Component Present [facility] Specimen Anatomical Collection Method Collection Time Receive d Time (Source) Location / / Volume Laterality AP Specimen 05/01/2016 5:32 PM 6 8:09 EDT AM EDT Ida Ron CATTLE DEHORNER PATHOLOGY/CYTOLOGY ORDERABLE S Performing Organization Address City/State/ZIP Code Phon [place] [address] Dog Bather Cytology Final Report (05/01/2016 5:32 PM EDT) Component Value Ref Test Analysis Performed At [facility] Range Method Time Signature Dog Bather Cytology [id number] ? Location: 5L ALBERT Final Report ASHUTOSH The signing pathologist has (i) examined the relevant preparation(s) for the [facility] specimen(s) and (ii) rendered or confirmed the diagnosis(es) . HOSPITAL LABORATORY . ? Dog Bather Final DIAGNOSIS Normal Negative for Intraepithelial Lesion or Malignancy (NILM). For consensus guidelines for the management of c ervical cancer screening test results, please see: ?? http://www.asccp.org/guidelines . Electronically signed by: ??AVI Henson(ASCP), Suzie Ruiz Verified: ??05/04/2016 ?Plating Tank Operator Screened: ??05/04/2016 ?SLA HPV RESULTS HPV16 (Result) ?NEGATIVE HPV18 (Result) ?NEGATIVE HPVOHR (Result) ? NEGATIVE HPV (Interpretation) ?See Below HPV (Interpretation) Text: NEGATIVE for high-risk HPV *. *Testing negative for high risk HPV means that the specimen is negative for the following 14 types tested: types 16, 18, 31, 33, 35 , 39, 45, 51, 52, 56, 58, 59, 66, and 68. The test is not intended to detect low risk HPV types. Lisa brayan HPV test Specimen: HPV Testing - Cytology Liquid Based Prep The Lisa brayan ? HPV delores t was validated, performed and results reported through the Laboratory for Clinical Gen omics and Advanced Technology (CGAT) at [facility]. ? - David Avilez, PhD, [facility], Director-[facility] STATEMENT OF ADEQUACY Specimen submitted is satisfactory. Endocervical component p resent. CLINICAL INFORMATION HPV Option: ?Concurrent HPV and Pap Preparation: ? Liquid based Pap Specimen Source: ? Cervical/Endocervical LMP: ? 8/19/16 Hormones?: ? Yes Hysterectomy?: ? No ?: ? No ?: ? No I.U.D.?: ? No Pelvic Radiation: ?No Prior DETENTION DEPUTY Therapy?: ?Cautery Hist Abnl Pap/Biopsy?: ?? Yes, history of previous abnormal Pap Hist of HPV Vaccine?: ?No Hist of Smoking?: ?No Hist of HAZEL exposure?: ?? No ICD Diagnosis: ? Z12.4 Encounter for screening for malignant neoplasm of cervix Clinical Data, Significant Therapy and Clinical Impression ? ? : ?_ . CLINICAL INFORMATION This Pap Test has been evalu ated with the assistance of the [employer] Pap Test Imaging System. Note: The Pap test is a screening test for cervical cancer with an inherent false-negative rate dependent upon several variables. ??For further information please contact the [facility] Laboratory. Reference: ??Devika CS. ? ?Cfa of Pap Smear Results. ??In: ??Sukumar BS, Roni HH, ed. ??The Pap Smear. ??[place]: ??Arnold, 20 02: ??71-77. Specimen (Source) Anatomical Collection Method Collection Time Re ceived Time Location / / Volume Laterality 05/01/2016 5:32 PM EDT Ida Mcintosh Asaf SACHA PATHOLOGY/CYTOLOGY ORDERABLE S Performing Organization Address City/State/[place] [address] HPV (05/01/2016 5:32 PM EDT) [facility] Method Time Signature HPV 16 NEGATIVE NEGATIVE [facility] HPV 18 NEGATIVE NEGATIVE [facility] HPV Other HR NEGATIVE NEGATIVE [facility] HPV See Comment [facility] LABORATORY Comment: NEGATIVE for high-risk HPV *. * Testing negative for high risk HPV abi ns that the specimen is negative for the following 14 types tested: ??types 1 6, 18, 31, 33, 35, 39, 45, 51, 52, 56, 58, 59, 66, and 68. ??The test is not in tended to detect low risk HPV types. Lisa Brayan HPV test Specimen: HPV Testing - Cytology Liquid Based Prep Specimen Anatomical Collection Method Collection Time Receive d Time (Source) Location / / Volume Laterality Cervical swab 05/01/2016 5:32 PM 05/01/20 16 5:38 (specimen) EDT PM EDT Resulting Agency Comment Spec In Lab Ida Mcintosh Asaf GONCALVES PATHOLOGY/CYTOLOGY ORDERABLE S Performing Organization Address City/[facility]/[place] [address] Cytopathology Gynecological (05/01/2016 5:32 PM EDT) Specimen Anatomical Collection Method Collection Time Receive d Time (Source) Location / / Volume Laterality AP Specimen 05/01/2016 5:32 PM 6 5:37 EDT PM EDT Narrative [facility] - 05/01/2016 5:37 PM EDT Specimen requisition ordered. ??Separate Pathology report to follow Resulting Agency Comment Spec In Lab Taryn Banks MD PATHOLOGY/CYTOLOGY ORDERABLE S Performing Organization Address City/State/[place] [address] documented in this encounter Visit Diagnoses Diagnosis Encounter for IUD insertion Encounter for insertion of intrauterine contraceptive device Unsatisfactory cervical Papanicolaou sme ar Unsatisfactory cervical cytology smear Vulvar pain Unspecified symptom associated with fema le genital organs documented in this encounter Administered Medications Inactive Administered Medications - up to 3 most recent administrations Medication Order MAR Action Action Date Dose Rate Site levonorgestrel (MIRENA) 20 Inserted 05/01/2016 5:32 PM 1 Intra Uter ine mcg/24 hr intra-uterine EDT Device device 1 Intra Uterine Device, Intrauterine, ONCE, 1 dose, On Sat05/01/16 at 1800, Routine documented in this encounter Care Teams Cleaning Staff Supervisor Relationship Specialty Start Date End Date Monica Garcia MD PCP - General 01/06/13 02/27/17 [address] [place] [address] documented as of this encounter
--- OUTSIDE RECORDS SUMMARY | 2022-03-23 02:28 | XMS_ITS | Encounter Summary ---
:1965 Author Organization [facility] [place] [address] Care Team Providers Name Role Phone Petar Janet Moss APRN Primary Care Provider Reason for Visit Reason Comments Medication Refill Encounter Details Date Type Department Care Team Description 08/06/2015 Refill Obstetrics and Gynecology at [facility] Ida juan APRN [facility] [place] [facility] Victor Manuel cifuentes OBSTETRICS & [place] [address] [place] [address] [phone] (Wo rk) Social History Tobacco Use Types [...] MD [facility] UROLOGY DEPT. [place], [place] [address] (Wo rk) 04/10/2022 Office Visit Urology Luis Michael MD [facility] UROLOGY DEPT. [place], [place] [address] (Wo rk) 07/13/2022 Appointment Radiology Maile Hinojosa MD [facility] ENDOCRINOLOGY [place], [place] [address] (Wo rk) 07/13/2022 Office Visit Endocrinology Maile Hinojosa MD [facility] ENDOCRINOLOGY [place], [place] [address] (Wo rk) documented as of this encounter Visit Diagnoses Not on filedocumented in this encounter Care Teams Promotions Officer Relationship Specialty Start Date End Date Janet Davey APRN PCP - General Family Medicine 07/13/20 [address] [place] [address] documented as of this encounter
--- OUTSIDE RECORDS SUMMARY | 2022-03-23 02:28 | XMS_ITS | Encounter Summary ---
:1965 Author Organization [facility] [place] [address] Care Team Providers Name Role Phone Monica Garcia MD Primary Care Provider Encounter Details Date Type Department Care Team Description 06/10/2014 Orders Only Mammography at [facility] Weston Figueroa, Inconclusive mammogram [facility] (Primary Dx) [place] [address] DIAGNOSTIC RADIOLOGY [place] [address] Social History Tobacco Use Types Packs/Day Years Used Date Never Smoker Smokeless Tobacco: Never Used Alcohol Use Standard Drinks/Week Comments No 0 (1 standard drink = 0.6 oz pure alcoho l) Sex Assigned at Date Recorded Female 01/29/2022 12:45 PM EDT documented as of this encounter Plan of Treatment Upcoming Encounters Date Type Specialty Care Team Description 04/10/2022 Appointment Radiology Luis Michael MD [facility] UROLOGY DEPT. [place], [place] [address] (Wo rk) 04/10/2022 Office Visit Urology Luis Michael MD [facility] UROLOGY DEPT. [place], [place] [address] (Wo rk) 07/13/2022 Appointment Radiology Maile Hinojosa MD [facility] ENDOCRINOLOGY [place], [place] [address] (Wo rk) 07/13/2022 Office Visit Endocrinology Maile Hinojosa MD [facility] DR [address]MO[address] [place], [place] [address] (Wo rk) documented as of this encounter Results Mammo call back No [...] ? No change or finding worrisome for shahriar priest is seen in either breast. ?? [...] to routine screening. ?? is associated with th is study. ?? Procedure Note Sherrie Lewis [...] maldiya priest is seen in either breast. On 06/18/14 [...] return to routine screening. is associated with th is study. Weston Figueroa MD IMG MAMMO ORDERABLES documented in this encounter Visit Diagnoses Diagnosis Inconclusive mammogram - Primary Inconclusive mammogram documented in this encounter Care Teams Internet Systems Administrator Relationship Specialty Start Date End Date Monica Garcia MD PCP - General 01/06/13 02/27/17 [address] [place] [address] documented as of this encounter
--- OUTSIDE RECORDS SUMMARY | 2022-03-23 02:28 | XMS_ITS | Encounter Summary ---
:1965 Author Organization [facility] [place] [address] Care Team Providers Name Role Phone Monica Garcia MD Primary Care Provider Encounter Details Date Type Department Care Team Description 07/15/2014 Orders Only Obstetrics and Gynecology Ida Ron, TANK INSPECTOR Perimenopause at [facility] Victor Manuel cifuentes OBSTETRICS & [place] [address] GYNECOLOGY [phone] [place], [place] [address] (Wo rk) Social History Tobacco [...] Description 04/10/2022 Appointment Radiology Luis Michael MD [facility] UROLOGY DEPT. [place], [place] [address] (Wo rk) 04/10/2022 Office Visit Urology Luis Michael MD [facility] UROLOGY DEPT. [place], [place] [address] (Wo rk) 07/13/2022 Appointment Radiology Maile Hinojosa MD [facility] MEDICAL [facility] ER ENDOCRINOLOGY [place], [place] [address] (Wo rk) 07/13/2022 Office Visit Endocrinology Maile Hinojosa MD [facility] ENDOCRINOLOGY [place], [place] 0[address] (Wo rk) documented as of this encounter Visit Diagnoses Diagnosis Perimenopause Symptomatic menopausal or female climact [place] documented in this encounter Care Teams Academic Associate Relationship Specialty Start Date End Date Monica Garcia MD PCP - General 01/06/13 02/27/17 [address] [place] [address] documented as of this encounter
--- OUTSIDE RECORDS SUMMARY | 2022-03-23 02:28 | XMS_ITS | Encounter Summary ---
:1965 Author Organization [facility] [place] [address] Care Team Providers Name Role Phone Janet Davey SACHA Primary Care Provider Reason for Visit Reason Comments Medication Refill Encounter Details Date Type Department Care Team Description 01/02/2014 Refill Obstetrics and Gynecology at Jaqueline bravo, [place] [address] [place] [address] [phone] Social History Tobacco Use Types Packs/Day Years [...] Luis Michael MD [facility] ER DR UROLOGY DEPT. [place], [place] [address] (Wo rk) 04/10/2022 Office Visit Urology Luis Michael MD [facility] UROLOGY DEPT. [place], [place] [address] (Wo rk) 07/13/2022 Appointment Radiology Maile Hinojosa MD [facility] ENDOCRINOLOGY [place], [place] [address] (Wo rk) 07/13/2022 Office Visit Endocrinology Maile Hinojosa MD [facility] ENDOCRINOLOGY [place], [place] [address] (Wo rk) documented as of this encounter Visit Diagnoses Not on filedocumented in this encounter Care Teams Construction Scheduler Relationship Specialty Start Date End Date Janet Davey APRN PCP - General Family Medicine 07/13/20 [address] [place] [address] documented as of this encounter
--- OUTSIDE RECORDS SUMMARY | 2022-03-23 02:28 | XMS_ITS | Encounter Summary ---
:1965 Author Organization [facility] [place] [address] Care Team Providers Name Role Phone Monica Garcia MD Primary Care Provider Encounter Details Date Type Department Care Team Description 12/01/2013 Orders Only Urology at [facility] Ferdinand Michael Kidney stones (Primary [facility] MD Jules [place]x) [place] [address] UROLOGY DEPT. [place], [place] [address] Social History Tobacco Use Types [...] Description 04/10/2022 Appointment Radiology Ferdinand Michael MD [facility] UROLOGY DEPT. [place], [place] [address] (Wo rk) 04/10/2022 Office Visit Urology Ferdinand Michael MD [facility] UROLOGY DEPT. [place], [place] [address] (Wo rk) 07/13/2022 Appointment Radiology Maile Hinojosa MD [facility] ENDOCRINOLOGY [place], [place] [address] (Wo rk) 07/13/2022 Office Visit Endocrinology Maile Hinojosa MD [facility] ENDOCRINOLOGY [place], [place] [address] (Wo rk) documented as of this encounter Results US retroperitoneal complete (02/23/2014 4:21 PM EDT) Anatomical Region Laterality Modality Abdomen Ultrasound Specimen (Source) Anatomical Collection Method Collection Time Re ceived Time Location / / Volume Laterality 02/23/2014 4:21 PM EDT Narrative 02/23/2014 5:21 PM EDT ? Renal ?(Signed Final 02/23/2014 05:20 pm) Patient Info ID: ?[id number] ?: ??[birth year] (48 yrs) Name: ?JESSICA GTZ ?Visit Date: 02/23/2014 04:19 pm Performed By Performed By: ?Mariann Leonard RDMS Associate: ? Jabari GILL, Bobby Alvarez Attending: ? Luna GILL, Genie P . Referred By: ? FERDINAND MICHAEL MD Service(s) Provided URETRO - Retroperitoneal Complete - [phone] [id number] ? [id number] Indications Hx of kidney stones Comparison Renal/bladder [...] Final 02/23/2014 05:20 pm) Patient Info ID: [id number] : [birth year] (48 yrs ) Name: JESSICA GTZ Visit Date: 02/23 04:19 pm Performed By Performed By: Mariann Leonard RDMS Associate: Bobby Barboza MD Attending: Genie Carrasco MD Referred By: FERDINAND MICHAEL MD Service(s) Provided URETRO - Retroperitoneal Complete - [phone] Indications Hx of kidney stones Comparison Renal/bladder [...] by the attending Ferdinand Michael Jr., MD IMG US GEN ORDERABLES documented in this encounter Visit Diagnoses Diagnosis Kidney stones - Primary Calculus of kidney Kidney stones Calculus of kidney documented in this encounter Care Teams Fruit Press Operator Relationship Specialty Start Date End Date Monica Garcia MD PCP - General 01/06/13 02/27/17 [address] [place] [address] documented as of this encounter
--- OUTSIDE RECORDS SUMMARY | 2022-03-23 02:28 | XMS_ITS | Encounter Summary ---
:1965 Author Organization [facility] [place] [address] Care Team Providers Name Role Phone Monica Garcia MD Primary Care Provider Encounter Details Date Type Department Care Team Description 06/09/2014 Hospital Encounter Mammography at [facility] [place] [address] Social History Tobacco Use Types Packs/Day [...] inhaler daily as needed (winter time). Evening [employer] 500 0 08/24/2010 01/24/2015 mg Cap [...] Description 04/10/2022 Appointment Radiology Luis Michael MD [facility] UROLOGY DEPT. [place], [place] [address] (Wo rk) 04/10/2022 Office Visit Urology Luis Michael MD [facility] UROLOGY DEPT. [place], [place] [address] (Wo rk) 07/13/2022 Appointment Radiology Maile Hinojosa MD [facility] ER ENDOCRINOLOGY [place], [place] [address] (Wo rk) 07/13/2022 Office Visit Endocrinology Maile Hinojosa MD [facility] DR [place], [place] [address] (Wo rk) documented as of this encounter Procedures Procedure Name Priority Date/Time Associated Diagnosis Comme nts MAMMO SCREENING CAD Routine 06/09/2014 3:37 PM Re sults for this BILATERAL EDT procedure are i n the results section. documented in this encounter Results Mammo digital bilateral Screening with CAD (06/09/2014 3:37 PM EDT) Anatomical Region Laterality Modality Breast Bilateral Mammography Specimen (Source) Anatomical Collection Method Collection Time Re ceived Time Location / / Volume Laterality 06/09/2014 3:37 PM EDT Narrative 06/22/2014 12:45 PM EDT BILATERAL DIRECT DIGITAL 2D/3D MAMMOGRAM [...] Patient may return to routine screening. ?? and [id number] are assoc iated with this study. ?? Procedure Note Sherrie Lewis MD [...] t. Patient may return to routine screening. and [id number] are assoc iated with this study. Ida Ron APRN IMG MAMMO ORDERABLES documented in this encounter Visit Diagnoses Not on filedocumented in this encounter Care Teams Reporting Developer Relationship Specialty Start Date End Date Monica Garcia MD PCP - General 01/06/13 02/27/17 [address] [place] [address] documented as of this encounter
--- OUTSIDE RECORDS SUMMARY | 2022-03-23 02:28 | XMS_ITS | Encounter Summary ---
:1965 Author Organization [place] [address] Care Team Providers Name Role Phone Monica Garcia MD Primary Care Provider Reason for Visit Reason Onset Date Comments Medication Refill 07/06/2015 Encounter Details Date Type Department Care Team Description 07/06/2015 Refill Obstetrics and Gynecology at Ida Montoya APRN [facility] Victor Manuel cifuentes OBSTETRICS & [place] [address] [place] [address] [phone] (Wo rk) Social History Tobacco Use Types Packs/Day Years Used Date Never Smoker Smokeless Tobacco: Never Used Alcohol Use Standard Drinks/Week Comments No 0 (1 standard drink = 0.6 oz pure alcoho l) Sex Assigned at Date Recorded Female 01/29/2022 12:45 PM EDT documented as of this encounter Miscellaneous Notes Telephone Encounter - Marley Montes - 07/06/2015 10:52 AM EST PER PATIENT REQUEST documented in this encounter Plan of Treatment Upcoming Encounters Date Type Specialty Care Team Description 04/10/2022 Appointment Radiology Luis Michael MD [facility] UROLOGY DEPT. [place], [place] [address] (Wo rk) 04/10/2022 Office Visit Urology Luis Michael MD [facility] UROLOGY [place], [place] [address] (Wo rk) 07/13/2022 Appointment Radiology Maile Hinojosa MD [facility] ENDOCRINOLOGY [place], [place] [address] (Wo rk) 07/13/2022 Office Visit Endocrinology Maile Hinojosa MD [facility] ENDOCRINOLOGY [place], [place] [address] (Wo rk) documented as of this encounter Visit Diagnoses Not on filedocumented in this encounter Care Teams Freight Forwarder Relationship Specialty Start Date End Date Monica Garcia MD PCP - General 01/06/13 02/27/17 [address] [place] [address] documented as of this encounter
--- OUTSIDE RECORDS SUMMARY | 2022-03-23 02:28 | XMS_ITS | Encounter Summary ---
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 Perimenopause [facility] [address] [place] OBSTETRICS & [address] GYNECOLOGY [phone] [place], [place] [address] Social History Tobacco Use Types Packs/Day Years Used Date Never Smoker Smokeless Tobacco: Never Used Alcohol Use Standard Drinks/Week Comments No 0 (1 standard drink = 0.6 oz pure alcoho l) Sex Assigned at Date Recorded Female 01/29/2022 12:45 PM EDT documented as of this encounter Last Filed Vital Signs Vital Sign Reading Time Taken Comments Blood Pressure 96/64 06/28/2015 4:07 PM EST Pulse - - Temperature - - Respiratory Rate - - Oxygen Saturation - - Inhaled Oxygen Concentration - - Weight 69.3 kg (152 lb 12.8 oz) 06/28/2015 4:07 PM EST Height 173 cm (5' 8.11) 06/28/2015 4:07 PM EST Body Mass Index 23.16 06/28/2015 4:07 PM EST documented in this encounter Progress Notes Ida Ron, [employer]S [employer] SALESPERSON - 06/28/2015 4:34 PM EST Reason for visit: Annual food broker exam ROS: MARKETING DEVELOPMENT REPRESENTATIVE: She is currently using the Estradiol 0.1 mg transdermal patch change twice weekly. She is also using Prometrium 200 mg starting on the 15 of each month for 14 days. She was having regular cycles until the last couple months. She bled 06/12 for about 7 days, she needed regular pads for 2 days; liners the rest. [...] states she turns into a real witch. Past Medical History Diagnosis Date ??? Asthma ??? Raynaud's disease ??? History of nephrolithiasis ??? Migraines ??? Abnormal glandular Papanicolaou smear of cervix age 15 ??? Vaginal infection PID at 15 ??? Osteoporosis Past Surgical History Procedure Laterality Date ??? Created by leigh ann Morgan([employer]) Procedure Date: 01/16/2008 ??? Lithotripsy ??? Knee surgery 03/01/14 Right knee; patella surgery MARKETING DEVELOPMENT REPRESENTATIVE History: Pt is a 49 year old G 4 P 3 female. Last pap 02/2012 negative; hx abnormal pap at age 15that required cryotherapy. Hx PID at age 15; no other hx of STD's/STI's. Last mammogram today. DEXA scan done in 01/2013 with lumbar total T-score -0.7; left hip total T-score -1.8, however femoral neckwith noted T- score of -2.5 indicative of 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 She saw Dr Hall this past summer. Pt reportstaking calcium and Vitamin D supplements; followed by [...] Use: No ??? Drug Use: No ??? Sexual Activity: Partners: Male Control/ Protection: Surgical Other Topics Concern ??? Not on file Social History Narrative with 3 children. Recently moved to a new home in their town of [place], [place]. 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 Eats relatively healthy with fruits, vegetables, yogurt, and milk; minimal meat. Eats 3 meals per day, does not drink tea or coffee, and occasionally drinks soda. Due to recent knee surgery she is going to PT 3 x per week and anticipates several more months of PT before she can return to exercising on her own. Her youngest is 15 yrs old. The other two are out of the house. She is very involved with her sons family that has lots of psycho social issues, her sons is bipolar, back issue, they have one child together, she had 3 in a previous relationship. She has not gone for counseling. Outpatient Prescriptions Marked as Taking for the 06/28/15 encounter (Office Visit) with Ida Ron APRN Medication Sig Dispense Refill ??? estradiol (GLENYS) 0.1 mg/[address] 1 patch onto the skin twice a week. ??? progesterone (PROMETRIUM) 200 mg Capsule Take 1 capsule by mouth daily. The - 14 of each month 42 capsule 3 ??? cetirizine (ZYRTEC) 10 mg tablet Take 10 mg by mouth daily. ??? multivitamin (THERAGRAN) tablet Take 1 tablet by mouth daily. ??? montelukast (SINGULAIR) 10 mg tablet Take 10 mg by mouth every morning. ??? ERGOCALCIFEROL, VITAMIN D2, (VITAMIN D ORAL) Allergies as of 06/28/2015 - Review Complete 06/28/2015 Allergen Reaction Noted ??? Grass pollen-bermuda, standard Other (See Comments) 12/07/2010 ??? Mold extracts Other (See Comments) 03/31/2013 BP 96/64 mmHg Ht 173 cm (5' 8.11) Wt 69.31 kg (152 lb 12.8 oz) BMI 23.16 kg/m2 LMP 06/27/2015 (Exact Date) PHYSICAL EXAM: Breasts- Without suspicious masses, puckers or D/C Abdomen- Without masses or tenderness Pelvic exam- [] External Genitalia- pink, without lesions Urethral meatus- without masses or lesions Vagina- pink, no abn d/c Cervix- pink, no suspicious lesions, moderate amount of bleeding. Cervix visualized, pap smear specimen collected w/ cytobrush, placed in preservative and sent to cytology. Uterus- a/v, without masses, normal size and contour Adenexa- without masses Rectovaginal exam- confirms, good tone, no hemorrhoids A: Perimenopausal bleeding P: Pap pending Pt will download and gerson to track her bleeding for 2-3 months. Based on that information, I will modify the HRT if needed. documented in this encounter Plan of Treatment Upcoming Encounters Date Type Specialty Care Team Description 04/10/2022 Appointment Radiology Luis Michael MD [facility] UROLOGY DEPT. [place], [place] [address] ([facility]) 04/10/2022 Office Visit Urology Luis Michael MD [facility] UROLOGY DEPT. [place], [place] [address] ([facility]) 07/13/2022 Appointment Radiology Maile Hinojosa MD [facility] ENDOCRINOLOGY [place], [place] [address] ([facility]) 07/13/2022 Office Visit Endocrinology Maile Hinojosa MD [facility] ENDOCRINOLOGY [place], [place] [address] ( silva) documented as of this encounter Procedures Procedure Name Priority Date/Time Associated Diagnosis Comme nts MARKETING DEVELOPMENT REPRESENTATIVE CYTOLOGY Routine 06/28/2015 5:02 Results for this INTERPRETATION PM EST procedure are in the results section. MARKETING DEVELOPMENT REPRESENTATIVE CYTOLOGY FINAL Routine 06/28/2015 5:02 Result s for this REPORT PM EST procedure are i n the results section. CYTOPATHOLOGY Routine 06/28/2015 5:02 Encounter for routine Re sults for this GYNECOLOGICAL PM EST gynecological procedure are in examination the results section. documented in this encounter Results MARKETING DEVELOPMENT REPRESENTATIVE Cytology Interpretation (06/28/2015 5:02 PM EST) Component Value Ref Test Analysis Performed At [facility] Range Method Time Signature Strategic Marketing Associate Cytology Unsatisfactory CERNER Interpretation [facility] Comment: Strategic Marketing Associate Cytology Final Report Acces kendall: [id number] Strategic Marketing Associate Cytology Comment Present [facility] Endocervical Component Unsatisfactory CE RNER [facility] Specimen Anatomical Collection Method Collection Time Receive d Time (Source) Location / / Volume Laterality AP Specimen 06/28/2015 5:02 PM 5 5:32 EST PM EST Rosey Crabtree MD PATHOLOGY/CYTOLOGY ORDERABLE S Performing Organization Address City/State/[place] [address] [facility] Strategic Marketing Associate Cytology Final Report (06/28/2015 5:02 PM EST) Component Value Ref Test Analysis Performed At [facility] Method Time Signature Strategic Marketing Associate Cytology The signing pathologist has (i) examined the relevant preparation(s) for the BANNERNER Final Report specimen(s) and (ii) rendered or confirmed the diagnosis (es). [facility] Accession Number: [id number] ?Location: 5 L . ? Strategic Marketing Associate Final DIAGNOSIS Unsatisfactory Specimen submitted is unsatisfactory for evaluation. ??See verna dewitt. 07/05/15 ?? Screened by: ??LMY ??SLA 07/05/15 ?? Verified by: ??A bertha CT(ASCP), Suzie Braswell - Project Portfolio Analyst DISCUSSION Specimen processed and exami bhumika microscopically but unsatisfactory for evaluation of epithelial abnormality due to insufficient squamous cellularity. ??Blood present. STATEMENT OF ADEQUACY Specimen submitted is unsatisfactory due to insufficie nt squamous component. CLINICAL INFORMATION HPV Option: ?Reflex HPV Preparation: ? Liquid based Pap Specimen Source: ? Cervical/Endocervical LMP: ? /2/15 Hormones?: ? Yes Hysterectomy?: ? No ?: ? No ?: ? No I.U.D.?: ? No Pelvic Radiation: ?No Prior MARKETING DEVELOPMENT REPRESENTATIVE Therapy?: ?Other (comment) Hist Abnl Pap/Biopsy?: ?? Yes, history of previous abnormal Pap Hist of HPV Vaccine?: ?No Hist of Smoking?: ?No Hist of HAZEL exposure?: ?? No ICD Diagnosis: ? Z12.4 Encounter for screening for malignant neoplasm of cervix Clinical Data, Significant Therapy and Clinical Impression: ?_ This Pap Test has been evalu ated with the assistance of the ThinPrep Pap Test Imaging System. Note: The Pap test is a screening test for cervical cancer with an inherent false-negative rate dependent upon several variables. ??For further information please contact the [facility]. Reference: ??Devika LEON. ? ?Correctional Corporal of Pap Smear Results. ??In: ??Sukumar BS, Roni HH, ed. ??The Pap Smear. ??[place]: ??Jonah, 2002: ? ?71-77. Specimen (Source) Anatomical Collection Method Collection Time Re ceived Time Location / / Volume Laterality 06/28/2015 5:02 PM EST Rosey Crabtree MD PATHOLOGY/CYTOLOGY ORDERABLE S Performing Organization Address City/State/[place] [address] [facility] Cytopathology Gynecological (06/28/2015 5:02 PM EST) Specimen Anatomical Collection Method Collection Time Receive d Time (Source) Location / / Volume Laterality AP Specimen 06/28/2015 5:02 PM 5 5:02 EST PM EST Narrative [facility] - 06/28/2015 5:[address] Specimen requisition ordered. ??Separate Pathology report to follow Rosey Crabtree MD PATHOLOGY/CYTOLOGY ORDERABLE S Performing Organization Address City/State/ZIP Code Phon e Number [place] [phone] [facility] [address] [facility] documented in this encounter Visit Diagnoses Diagnosis Encounter for routine gynecological exam ination Routine gynecological examination Perimenopause Symptomatic menopausal or female climact [place] documented in this encounter Care Teams Thermometer Maker Relationship Specialty Start Date End Date Monica Garcia MD PCP - General 01/06/13 02/27/17 [address] [place] [address] documented as of this encounter
--- OUTSIDE RECORDS SUMMARY | 2022-03-23 02:28 | XMS_ITS | Encounter Summary ---
:1965 Author Organization [facility] [place] [address] Care Team Providers Name Role Phone Monica Garcia MD Primary Care Provider Encounter Details Date Type Department Care Team Description 04/24/2013 Hospital Encounter Mammography at [facility] [place] [address] Social History Tobacco Use Types Packs/Day [...] 0.63 0 08/24/2010 mg/3 mL nebulizer solution amitriptyline (ELAVIL) 10 Take 10 mg by mouth 0 04/07/2015 mg tablet nightly. gabapentin (NEURONTIN) 100 Take 100 mg by 0 01/24/2015 mg capsule mouth every morning. CLIMARA PRO 0.045-0.015 apply 1 patch every 12 patch 3 01/06/2014 mg/24 hr week cetirizine (ZYRTEC) 10 mg Take 10 mg by mouth 0 02/12/2022 tablet daily. MOMETASONE FUROATE by Nasal route 0 (NASONEX NASL) daily. fluticasone-salmeterol Inhale 1 puff into 0 06/27/2017 (ADVAIR) 500-50 mcg/dose the lungs 2 times diskus inhaler daily as needed (winter time). Evening Babb Oil 500 0 08/24/2010 01/24/2015 mg Cap [...] Description 04/10/2022 Appointment Radiology Luis Michael MD [facility] UROLOGY DEPT. [place], [place] [address] (Wo rk) 04/10/2022 Office Visit Urology Luis Michael MD [facility] UROLOGY DEPT. [place], [place] [address]375 (Wo rk) 07/13/2022 Appointment Radiology Maile Hinojosa MD [facility] ENDOCRINOLOGY [place], [place] 0375 (Wo rk) 07/13/2022 Office Visit Endocrinology Maile Hinojosa MD [facility] ENDOCRINOLOGY [place] [address] (Wo rk) documented as of this encounter Procedures Procedure Name Priority Date/Time Associated Diagnosis Comme nts MAMMO SCREENING CAD Routine 04/24/2013 11:15 AM R esults for this BILATERAL EDT procedure are i n the results section. documented in this encounter Results Mammo digital bilateral Screening with CAD (04/24/2013 11:15 AM EDT) Anatomical Region Laterality Modality Breast Bilateral Mammography Specimen (Source) Anatomical Collection Method Collection Time Re ceived Time Location / / Volume Laterality 04/24/2013 11:15 AM EDT Narrative 04/28/2013 10:04 AM EDT Reason for Exam: Screening Technique: Craniocaudal (CC) and Medio-l ateral Oblique (MLO) views of both breasts obtained with direct digital cap ture. In addition to the routine 2D imaging th is exam was also performed with 3D tomographic imaging in MLO and CC projec tions. The exam was evaluated by CAD version 8. 3.17. Findings: This is a negative mammogram (ACR Catego ry 1). ??There is a stable fibroglandular pattern without significa nt change from prior studies. There is no mammographic evidence of can cer. ??The breasts are heterogeneously dense which limits mammographic sensitiv ity for the detection of malignancy. CONCLUSION: This is a NEGATIVE mammogram (ACR Catego ry 1). ?? Routine screening mammography is recomme nded with the frequency dependent upon the patient's age and breast cancer risk factors. A letter has been sent to this patient b y the breast imaging center. Procedure Note Janey Alvarez MD - 04/28/2013 Reason for Exam: Screening Technique: Craniocaudal (CC) and Medio-l ateral Oblique (MLO) views of both breasts obtained with direct digital cap ture. In addition to the routine 2D imaging th is exam was also performed with 3D tomographic imaging in MLO and CC projec tions. The exam was evaluated by CAD version 8. 3.17. Findings: This is a negative mammogram (ACR Catego ry 1). There is a stable fibroglandular pattern without significa nt change from prior studies. There is no mammographic evidence of can cer. The breasts are heterogeneously dense which limits mammographic sensitiv ity for the detection of malignancy. CONCLUSION: This is a NEGATIVE mammogram (ACR Catego ry 1). Routine screening mammography is recomme nded with the frequency dependent upon the patient's age and breast cancer risk factors. A letter has been sent to this patient b y the breast imaging center. Ramses Birch MD IMG MAMMO ORDERABLES documented in this encounter Visit Diagnoses Not on filedocumented in this encounter Care Teams Knobber Relationship Specialty Start Date End Date Monica Garcia MD PCP - General 01/06/13 02/27/17 [address] [place] [address] documented as of this encounter
--- OUTSIDE RECORDS SUMMARY | 2022-03-23 02:28 | XMS_ITS | Encounter Summary ---
:1965 Author Organization [place] [address] Care Team Providers Name Role Phone Monica Garcia MD Primary Care Provider Reason for Visit Reason Onset Date Comments Medication Refill 04/23/2014 Encounter Details Date Type Department Care Team Description 04/23/2014 Refill Obstetrics and [place]necology [place] [address] Social History Tobacco Use Types Packs/Day [...] Michael MD [facility] UROLOGY DEPT. [place], [place] [address] (Wo rk) 04/10/2022 Office Visit Urology Luis Michael MD [facility] UROLOGY DEPT. [place], [place] [address] (Wo rk) 07/13/2022 Appointment Radiology Maile Hinojosa MD [facility] ENDOCRINOLOGY [place], [place] [address] (Wo rk) 07/13/2022 Office Visit Endocrinology Maile Hinojosa MD [facility] ENDOCRINOLOGY [place], [place] [address] (Wo rk) documented as of this encounter Visit Diagnoses Not on filedocumented in this encounter Care Teams Manager Administrative Services Relationship Specialty Start Date End Date Monica Garcia MD PCP - General 01/06/13 02/27/17 [address] [place] [address] documented as of this encounter
--- OUTSIDE RECORDS SUMMARY | 2022-03-23 02:28 | XMS_ITS | Encounter Summary ---
:1965 Author Organization [facility] [place] [address] Care Team Providers Name Role Phone Monica Garcia MD Primary Care Provider Encounter Details Date Type Department Care Team Description 01/19/2015 Notes Only Obstetrics and Gynecology [place] [address] Social History Tobacco Use Types Packs/Day Years Used Date Never Smoker Smokeless Tobacco: Never Used Alcohol Use Standard Drinks/Week Comments No 0 (1 standard drink = 0.6 oz pure alcoho l) Sex Assigned at Date Recorded Female 01/29/2022 12:45 PM EDT documented as of this encounter Progress Notes Toyin Aceves LPN - 01/20/2015 12:39 PM EDT PA for Karen torres has been approved starting on 01/19/15 and will on 01/18/18. Approval letterhas been sent to medical records, patient and patient's pharmacy have been notified. Toyin Aceves LPN - 01/19/2015 10:28 AM EDT PA for Karen torres has been faxed to [facility]. Approval is Pending. documented in this encounter Plan of Treatment Upcoming Encounters Date Type Specialty Care Team Description 04/10/2022 Appointment Radiology Luis Michael MD [facility] UROLOGY DEPT. [place], [place] [address] (Wo rk) 04/10/2022 Office Visit Urology Luis Michael MD [facility] UROLOGY DEPT. [place], [place] [address] (Wo rk) 07/13/2022 Appointment Radiology Maile Hinojosa MD [facility] ENDOCRINOLOGY [place], [place] [address] (Wo rk) 07/13/2022 Office Visit Endocrinology Maile Hinojosa MD [facility] ENDOCRINOLOGY [place], [place] [address] (Wo rk) documented as of this encounter Visit Diagnoses Not on filedocumented in this encounter Care Teams Computer Systems Software Engineer Relationship Specialty Start Date End Date Monica Garcia MD PCP - General 01/06/13 02/27/17 [address] [place] [address] documented as of this encounter
--- OUTSIDE RECORDS SUMMARY | 2022-03-23 02:28 | XMS_ITS | Encounter Summary ---
:1965 Author Organization [facility] [place] [address] Care Team Providers Name Role Phone Monica Garcia MD Primary Care Provider Reason for Visit Reason Onset Date Comments Questions 12/07/2014 Encounter Details Date Type Department Care Team Description 12/07/2014 Telephone Obstetrics and Gynecology at Connie Bolton, [facility] [place] [address] Social History Tobacco Use Types Packs/Day Years Used Date Never Smoker Smokeless Tobacco: Never Used Alcohol Use Standard Drinks/Week Comments No 0 (1 standard drink = 0.6 oz pure alcoho l) Sex Assigned at Date Recorded Female 01/29/2022 12:45 PM EDT documented as of this encounter Miscellaneous Notes Telephone Encounter - Connie Bolton RN - 12/07/2014 10:11 AM EDT Caller: Connie Bolton RN Learning Needs Assessment Reviewed: Yes Subjective Patient presents with: Questions Objective/Assessment Patient had sent a message for Mary Ron APRN regarding changing her medication. She is currently using Estradiol (Lia) 0.1mg/24hour semiweekly. She states the it is not helping with hot flashes and mood swings and when she adds the Progesterone it becomes worse. She is wondering if there is another medication she can try. Symptom onset:Ongoing Location:Na Duration:na Characteristics: Increased hot flashes and mood swings Aggravating factors:NA Relieving factors:NA Timing:NA Severity:Na Pertinent Past Medical History:Perimenopause Plan Intervention/Plan/ Follow Up: Patient aware that Mary Ron is on leave until December. She is asking that Icheck with another provider to see if there is another medication that would work better than the Lia patch. documented in this encounter Plan of Treatment Upcoming Encounters Date Type Specialty Care Team Description 04/10/2022 Appointment Radiology Luis Michael MD [facility] UROLOGY DEPT. [place], [place] [address] (Wo rk) 04/10/2022 Office Visit Urology Luis Michael MD [facility] UROLOGY DEPT. [place], [place] [address] (Wo rk) 07/13/2022 Appointment Radiology Maile Hinojosa MD [facility] ENDOCRINOLOGY [place], [place] [address] (Wo rk) 07/13/2022 Office Visit Endocrinology Maile Hinojosa MD [facility] ENDOCRINOLOGY [place], [place] [address] (Wo rk) documented as of this encounter Visit Diagnoses Not on filedocumented in this encounter Care Teams Database Report Writer Relationship Specialty Start Date End Date Monica Garcia MD PCP - General 01/06/13 02/27/17 [address] [place] [address] documented as of this encounter
--- OUTSIDE RECORDS SUMMARY | 2022-03-23 02:28 | XMS_ITS | Encounter Summary ---
:1965 Author Organization [facility] [place] [address] Care Team Providers Name Role Phone Monica Garcia MD Primary Care Provider Reason for Visit Reason Comments Osteoporosis Encounter Details Date Type Department Care Team Description 04/07/2015 Office Visit Endocrinology at [facility], DR CONV Osteoporosis [facility] Cuate Vidales MD [facility] [place] [address] [place] [address] Social History Tobacco Use Types Packs/Day Years Used Date Never Smoker Smokeless Tobacco: Never Used Alcohol Use Standard Drinks/Week Comments No 0 (1 standard drink = 0.6 oz pure alcoho l) Sex Assigned at Date Recorded Female 01/29/2022 12:45 PM EDT documented as of this encounter Last Filed Vital Signs Vital Sign Reading Time Taken Comments Blood Pressure 121/69 04/07/2015 1:55 PM EDT Pulse 77 04/07/2015 1:55 PM EDT Temperature - - Respiratory Rate - - Oxygen Saturation - - Inhaled Oxygen Concentration - - Weight 66.3 kg (146 lb 3.2 oz) 04/07/2015 1:55 PM EDT Height 173 cm (5' 8.11) 04/07/2015 1:55 PM EDT Body Mass Index 22.16 04/07/2015 1:55 PM EDT documented in this encounter Progress Notes Cuate Hall MD - 04/08/2015 11:14 AM EDT Subjective: Patient ID: Stacy Albright is a 49 y.o. female who comes in for a routine followup concerning her metabolic bone disease. I had initially seen her along with Dr. Romero in a previous visit (see history of this note below). At that time, she was noted on DEXA scans to have some osteoporosis (01/2011) and a previous history of some kidney stones. She was told that she may have had increased urinary calcium excretion, but normal calcium and PTH. She was also told by Dr. Romero to restrict oxalate in her diet. The presumption is that she has had high doses of prednisone and other corticosteroids in the past for treatment of her asthma, which caused some premature decrease in bone density. In 2010, her lowest T-score was a T-score of -2.5 in her femoral neck. She is here now, has never had a history of a fragility fracture. She is taking calcium and vitamin D. Actually has been told to make sure she takes enough calcium to bind, oxalate and decrease absorption of oxalate in her diet as well as cutting back on oxalate. . HPI Brief History of Present Illness: Stacy Albright is a very pleasant 46 y.o. year old female evaluated by [facility] and found to have osteoporosis on Dexa scan done 01/2011.Patient with history of Kidney stones-multiple, ESWL in 2007 and again in 2009 with ureteral stents placement.Her work up in 2007 revealed increased urinary calcium excretion but normal calcium and PTH.Tries to restrict oxalate in diet. No polyuria,polydipsia or bone pain at present. Osteoporosis risk factors: Sex - female Age - 46 y.o. Weight - 147 lbs Height - 5 8 (has lost around 1 inch over the years) Previous fracture - NO Parental fractured hip - No Mother and grandmother with Osteopororsis Current smoking - No Alcohol - No, Glucococorticoid use - Yes for asthma on and off since 2005.On tapering doses of steroids for 5-6 months a year. Rheumatoid arthritis - No Family history -Osteoporosis in mother at 60.grandmother with osteoporosis Ca and Vit D intake -Multivitamin ca 450 mg, Vitamin D 800 IU, Drinks around 2 tall glasses/day,yoghurt,Some cheese Exercise - Walk half an hour 3 times a week Menstrual History-Two years ago started on hormonal patch for perimenopausal symptoms including moodchange, hair loss, hot flashes, night sweats. This patch gave resolution to her symptoms. However she still had some hair loss so then increased dose. She then started having irregular bleeding, dysmenorrhea. She developed an ovarian cyst found on CT done for evaluation of nephrolithiasis. At that time the patch was discontinued and was started on continuous OCPs to stop ovulation and menses. She wason continuous oral combined contraceptives (ovcon with 35mg EE) for 6 months but was switched to estrogen patch few weeks ago because of increased bleeding. Last DEXA scan on 02/13/2011 showed Femoral neck T-score = -2.5,total neck 1.8 Review of Systems Objective: Physical Exam Constitutional: She is oriented to person, place, and time. She appears well- developed and well-nourished. Neurological: She is alert and oriented to person, place, and time. Psychiatric: She has a normal mood and affect. Her behavior is normal. Thought content normal. BP 121/69 mmHg Pulse 77 Ht 173 cm (5' 8.11) Wt 66.316 kg (146 lb 3.2 oz) BMI 22.16 kg/m2 Assessment and Plan: DEXA scan done today shows that in her spine her total T-score is -0.8 and she has lost an insignificant 1.3% bone density in the last two years. In her hip, her neck of her hip T-score is -2.6, total hip is -1.9, she has lost an insignificant 1.3% bone density in her total hip and also an insignificant decrease in the neck of the hip. I had a discussion with Stacy and said that I think her risk of fracture in the next five or ten years is quite low. I did say, however, that she does technically have osteoporosis in the neck of her hip as indicated by DEXA scan. The good news is that The bone density in the neck of her hip is relatively stable. I suggested that she continue on calcium and vitamin D and stay active and that we repeat her DEXA scan in two years. I told her that at some point we may want to institute another medication such as a bisphosphonate or a denosumab, but at this point, I do not think it is necessary. Greater than 20 of the 25-minute appointment was face to face discussion concerning the results of her DEXA scan today and also discussion concerning plans for overseeing and treating her metabolic bone disease in the future. documented in this encounter Plan of Treatment Upcoming Encounters Date Type Specialty Care Team Description 04/10/2022 Appointment Radiology Luis Michael MD [facility] UROLOGY DEPT. [place], [place] [address] (Wo rk) 04/10/2022 Office Visit Urology Luis Michael MD [facility] UROLOGY DEP. [place], [place] [address] (Wo rk) 07/13/2022 Appointment Radiology Maile Hinojosa MD [facility] ENDOCRINOLOGY [place], [place] [address] (Wo rk) 07/13/2022 Office Visit Endocrinology Maile Hinojosa MD [facility] ENDOCRINOLOGY [place], [place] [address] (Wo rk) documented as of this encounter Visit Diagnoses Diagnosis Osteoporosis Osteoporosis, unspecified documented in this encounter Care Teams Cement Or Concrete Finishing Supervisor Relationship Specialty Start Date End Date Monica Garcia MD PCP - General 01/06/13 02/27/17 [address] [place] [address] documented as of this encounter
--- OUTSIDE RECORDS SUMMARY | 2022-03-23 02:28 | XMS_ITS | Encounter Summary ---
:1965 Author Organization [facility] [place] [address] Care Team Providers Name Role Phone Monica Garcia MD Primary Care Provider Reason for Visit Reason Onset Date Comments Medication Refill 07/07/2015 Encounter Details Date Type Department Care Team Description 07/07/2015 Telephone Obstetrics and Gynecology Sandra Bolton Medication Refill at [facility] [place], [place] [address] Social History Tobacco Use Types Packs/Day Years Used Date Never Smoker Smokeless Tobacco: Never Used Alcohol Use Standard Drinks/Week Comments No 0 (1 standard drink = 0.6 oz pure alcoho l) Sex Assigned at Date Recorded Female 01/29/2022 12:45 PM EDT documented as of this encounter Miscellaneous Notes Telephone Encounter - Connie Bolton RN - 07/08/2015 3:13 PM EST Addendum: Spoke with Mary Fernandez and she authorized ordering the Vivelle Dot 0.1mg/24 hour patchto be placed two times a week. Pres[facility] to [facility] in [facility]. Patient called and notified of prescription. Telephone Encounter - Connie Bolton, RN - 07/07/2015 4:29 PM EST Caller: Patient Learning Needs Assessment Reviewed: Yes Subjective Patient presents with: Medication Refill Objective/Assessment Patient is calling with questions regarding prescription for Estradiol 0.1 mg/24 hour patch which she uses twice weekly. She has been using the Vivelle Dot 0.1 mg /24 hour, which she prefers. She is asking to have the prescription resent. She runs out on Saturday. Symptom onset:NA Location:NA Duration:NA Characteristics:NA Aggravating factors:NA Relieving factors:NA Timing:NA Severity:NA Pertinent Past Medical History:Perimenopause Plan Intervention/Plan/ Follow Up: Advised patient I will check with provider and call her back. documented in this encounter Plan of Treatment Upcoming Encounters Date Type Specialty Care Team Description 04/10/2022 Appointment Radiology Luis Michael MD [facility] UROLOGY DEPT. [place] [id number] (Wo rk) 04/10/2022 Office Visit Urology Luis Michael MD [facility] UROLOGY [place], [place] [address] (Wo rk) 07/13/2022 Appointment Radiology Maile Hinojosa MD [facility] ENDOCRINOLOGY [place], [place] [address] (Wo rk) 07/13/2022 Office Visit Endocrinology Maile Hinojosa MD [facility] ENDOCRINOLOGY [place], [place] [address] (Wo rk) documented as of this encounter Visit Diagnoses Not on filedocumented in this encounter Care Teams Skoog Machine Operator Relationship Specialty Start Date End Date Monica Garcia MD PCP - General 01/06/13 02/27/17 [address] [place] [address] documented as of this encounter
--- OUTSIDE RECORDS SUMMARY | 2022-03-23 02:28 | XMS_ITS | Encounter Summary ---
:1965 Author Organization [facility] [place] [address] Care Team Providers Name Role Phone Monica Garcia MD Primary Care Provider Encounter Details Date Type Department Care Team Description 12/07/2014 Orders Only Obstetrics and Gynecology Sarah Jose CNM at [facility] Victor Manuel cifuentes OBSTETRICS & [place] [address] [place] [address] [phone] (Wo rk) Social History Tobacco Use Types [...] [facility] UROLOGY DEPT. [place], [place] [address] (Wo rk) 04/10/2022 Office Visit Urology Luis Michael MD [facility] UROLOGY DEPT. [place], [place] [address] (Wo rk) 07/13/2022 Appointment Radiology Maile Hinojosa MD [facility] ENDOCRINOLOGY [place], [place] [address] (Wo rk) 07/13/2022 Office Visit Endocrinology Maile Hinojosa MD [facility] ENDOCRINOLOGY [place], [place] [address] (Wo rk) documented as of this encounter Visit Diagnoses Not on filedocumented in this encounter Care Teams Shift Supervisor Rn Relationship Specialty Start Date End Date Monica Garcia MD PCP - General 01/06/13 02/27/17 [address] [place] [address] documented as of this encounter
--- OUTSIDE RECORDS SUMMARY | 2022-03-23 02:28 | XMS_ITS | Encounter Summary ---
:1965 Author Organization [facility] [place] [address] Care Team Providers Name Role Phone Monica Garcia MD Primary Care Provider Encounter Details Date Type Department Care Team Description 06/28/2015 Hospital Encounter Mammography at [facility] Rosey Crabtree Other screening [facility] MD Ken mammogram [facility] [address] OBSTETRICS & [phone] [place] [address] Social History Tobacco Use Types Packs/Day Years [...] 0.63 0 08/24/2010 mg/3 mL nebulizer solution Fluocinolone Acetonide 0 06/21/2015 Oil 0.01 % Drops polyethylene glycol 0 03/28/201508/29 (MIRALAX) 17 gram/dose Powder estradiol (GLENYS) 0.1 Place 1 patch onto 0 07/06/2015 mg/24 hr Patch Semiweekly the skin twice a week. progesterone (PROMETRIUM) Take 1 capsule by 42 capsule 3 08/29/2015 200 mg Capsule mouth daily. The - 14 th of each month ibuprofen (ADVIL;MOTRIN) Take 800 [...] Description 04/10/2022 Appointment Radiology Luis Michael MD [facility] UROLOGY DEPT. [place], [place] [address] (Wo rk) 04/10/2022 Office Visit Urology Luis Michael MD [facility] UROLOGY DEPT. [place], [place] [address] (Wo rk) 07/13/2022 Appointment Radiology Maile Hinojosa MD [facility] ENDOCRINOLOGY [place], [place] [address] (Wo rk) 07/13/2022 Office Visit Endocrinology Maile Hinojosa MD [facility] ENDOCRINOLOGY [place], [place] [address] (Wo rk) documented as of this encounter Procedures Procedure Name Priority Date/Time Associated Diagnosis Comme nts MAMMO 2D DIGITAL Routine 06/28/2015 3:45 PM Other screening Re sults for this SCREEN EDDIE EST mammogram procedure are i n BILATERAL the results section. documented in this encounter Results Mammo Screen Eddie 2D Bilateral (06/28/2015 3:45 PM EST) Anatomical Region Laterality Modality Breast Bilateral Mammography Specimen (Source) Anatomical Location Collection Method / Collectio n Time Received Time / Laterality Volume Narrative 06/29/2015 8:58 AM EST BILATERAL MAMMOGRAPHY REASON FOR EXAM: [...] stable. CONCLUSION: No mammographic evidence of malignancy. RECOMMENDATION Routine screening mammogr aphy is recommended with the frequency dependent on the patient? s age, breast cancer risk factors and preference. Additional studies may be re commended for women with higher than average risk for breast cancer. A result letter has been sent to this sha [facility]ao by [facility]. BIRADS CATEGORY 1: NEGATIVE Rosey Crabtree MD IMG MAMMO ORDERABLES documented in this encounter Visit Diagnoses Diagnosis Other screening mammogram documented in this encounter Care Teams Supervisor Lime Relationship Specialty Start Date End Date Monica Garcia MD PCP - General 01/06/13 02/27/17 [address] [place] [address] documented as of this encounter
--- OUTSIDE RECORDS SUMMARY | 2022-03-23 02:28 | XMS_ITS | Encounter Summary ---
:1965 Author Organization [facility] [place] [address] Care Team Providers Name Role Phone Monica Garcia MD Primary Care Provider Encounter Details Date Type Department Care Team Description 01/09/2013 Orders Only Endocrinology at [facility] C Jennifer Romero, Osteoporosis (Primary [facility] Dx) [place] [address] [place] [address] ENDOCRINOLOGY DEPT [place], [place] [address] Social History Tobacco Use Types [...] [facility] UROLOGY DEPT. [place], [place] [address] (Wo rk) 04/10/2022 Office Visit Urology Luis Michael MD [facility] UROLOGY DEPT. [place], [place] [address] (Wo rk) 07/13/2022 Appointment Radiology Maile Hinojosa MD [facility] ENDOCRINOLOGY [place], [place] [address] (Wo rk) 07/13/2022 Office Visit Endocrinology Maile Hinojosa MD [facility] ENDOCRINOLOGY [place], [place] [address] (Wo rk) documented as of this encounter Visit Diagnoses Diagnosis Osteoporosis - Primary Osteoporosis, unspecified documented in this encounter Care Teams Cloth Examiner Machine Relationship Specialty Start Date End Date Monica Garcia MD PCP - General 01/06/13 02/27/17 [address] [place] [address] documented as of this encounter
--- OUTSIDE RECORDS SUMMARY | 2022-03-23 02:28 | XMS_ITS | Encounter Summary ---
:1965 Author Organization [facility] [place] [address] Care Team Providers Name Role Phone Petar Janet Moss APRN Primary Care Provider Reason for Visit Reason Comments Medication Refill Encounter Details Date Type Department Care Team Description 08/21/2015 Refill Obstetrics and Gynecology at [facility] Ida juan APRN [facility] Victor Manuel cifuentes OBSTETRICS & [place] [address] [place] [address] [phone] (Wo rk) Social History Tobacco Use Types [...] MD [facility] UROLOGY DEPT. [place], [place] [address] (Wo rk) 04/10/2022 Office Visit Urology Luis Michael MD [facility] UROLOGY DEPT. [place], [place] [address] (Wo rk) 07/13/2022 Appointment Radiology Maile Hinojosa MD [facility] MED[facility] ER ENDOCRINOLOGY [place], [place] [address] (Wo rk) 07/13/2022 Office Visit Endocrinology Maile Hinojosa MD [facility] ENDOCRINOLOGY [place], [place] [address] (Wo rk) documented as of this encounter Visit Diagnoses Not on filedocumented in this encounter Care Teams Steel Handler Relationship Specialty Start Date End Date Janet Davey APRN PCP - General Family Medicine 07/13/20 [address] [place] [address] documented as of this encounter
--- OUTSIDE RECORDS SUMMARY | 2022-03-23 02:28 | XMS_ITS | Encounter Summary ---
:1965 Author Organization [facility] [place] [address] Care Team Providers Name Role Phone Monica Garcia MD Primary Care Provider Reason for Visit Reason Comments Follow-up Encounter Details Date Type Department Care Team Description 01/24/2015 Follow-Up Obstetrics and Ida Ron, Menopasyd l hot flushes Gynecology at [facility] [place] [address] OBSTETRICS & [phone] GYNECOLOGY [place], [place] [address] (Wo rk) Social History Tobacco Use Types Packs/Day Years Used Date Never Smoker Smokeless Tobacco: Never Used Alcohol Use Standard Drinks/Week Comments No 0 (1 standard drink = 0.6 oz pure alcoho l) Sex Assigned at Date Recorded Female 01/29/2022 12:45 PM EDT documented as of this encounter Last Filed Vital Signs Vital Sign Reading Time Taken Comments Blood Pressure 102/68 01/24/2015 4:23 PM EDT Pulse - - Temperature - - Respiratory Rate - - Oxygen Saturation - - Inhaled Oxygen Concentration - - Weight 66.8 kg (147 lb 3.2 oz) 01/24/2015 4:23 PM EDT Height - - Body Mass Index 22.38 06/09/2014 3:51 PM EDT documented in this encounter Progress Notes Ida Ron APRN - 01/24/2015 4:59 PM EDT Reason for visit: Hot flushes HPI: Pt was seen in 05/2014 for annual exam. She reported irregular periods which are now regulated with the cycling of estrogen and prometrium. She was having hot flushes that were not controlled on ClimaraPro. We then switched her to Combipatch which also was not taking hot flushes away. She then was switched to the Estradiol transdermal patch 0.1 mg. She is on the Prometrium 200 mg monthly which regulate her periods. She just finished the 14 days of Prometrium, Saturday, January 21. She started bleeding January 14. She has not had an EMB or US/SHG. She takes the Progesterone the of the to the . Should get mense . She reports the Prometrium makes the hot flushes worse and would like to know if there is anything else she can do. Coincidently, she started Norvasc for Reynauds in thefall which has a side effect of hot flushes. This is when her hot flushes worsened. O: No exam A: Hot flushes R/T perimenopause vs side effect of medication AUB P: Since no studies to evaluate any pathology was performed to evaluate the endometrial cavity, willorder US/SHG. Will try and schedule first or second week of February. She will contact her PCP to see if she could try another med for Raynauds. She will have CBC and TSH drawn today to check levels After pt left, I was able to review more of her historic notes. She had irregular bleeding when she was on continuous OCP in 2011. An US was performed which was WNL. I tried calling the pt but she did not answer. I left a message that I was not going to order SHG until we talked. documented in this encounter Plan of Treatment Upcoming Encounters Date Type Specialty Care Team Description 04/10/2022 Appointment Radiology Luis Michael MD [facility] UROLOGY DEPT. [place], [place] [address] (Wo rk) 04/10/2022 Office Visit Urology Luis Michael MD [facility] UROLOGY DEPT. [place], [place] [address] (Wo rk) 07/13/2022 Appointment Radiology Maile Hinojosa MD [facility] ENDOCRINOLOGY [place], [place] [address] (Wo rk) 07/13/2022 Office Visit Endocrinology Maile Hinojosa MD [facility] ER ENDOCRINOLOGY [place], [place] [address] (Wo rk) documented as of this encounter Procedures Procedure Name Priority Date/Time Associated Diagnosis Comme nts HEMOGRAM Routine 01/24/2015 5:39 PM Menopausal hot Results for this EDT flushes procedure are i n the results section. DIFFERENTIAL, Routine 01/24/2015 5:39 PM Menopausal hot Result s for this AUTOMATED EDT flushes procedure are i n the results section. CBC (WITH DIFF) Routine 01/24/2015 5:39 PM Menopausal hot EDT flushes TSH Routine 01/24/2015 5:39 PM Menopausal hot Results for this EDT flushes procedure are i n the results section. documented in this encounter Results Differential, Automated (01/24/2015 5:39 PM EDT) P athologist Signature Neutrophils % 62.0 % CERNER MILLENNIUM Neutr Abs (ANC) 3.51 1.50 - CERNER 6.30 MILLENNIUM x10(3)/mcL Lymphocytes % 27.2 % CERNER MILLENNIUM Lymphocytes Abs 1.5 1.0 - 3.6 CERNER x10(3)/mcL MILLENNIUM Monocytes % 8.8 % CERNER MILLENNIUM Monocyte Abs 0.5 0.2 - 1.0 CERNER x10(3)/mcL MILLENNIUM Eosinophils % 1.1 % CERNER MILLENNIUM Eosinophils Abs 0.1 0.0 - 0.5 CERNER x10(3)/mcL MILLENNIUM Basophils % 0.7 % CERNER MILLENNIUM Basophils Abs 0.0 0.0 - 0.2 CERNER x10(3)/mcL MILLENNIUM Immature Gran % 0.20 % CERNER MILLENNIUM Comment: Immature granulocytes(IG's)percentage an d absolute count will include metamyelocytes, myelocytes, and promyelo cytes. Blood smears from CBCs yielding IG's will be scanned manually for concor dance. If this scan disagrees with the automated IG or if promyelocytes are not ed, a manual differential will be performed. Diane Gran Abs 0.01 0.00 - 0.05 x10(3)/mcL CER NER MILLENNIUM Specimen Anatomical Collection Method Collection Time Receive d Time (Source) Location / / Volume Laterality Blood specimen 01/24/2015 5:39 PM 015 5:43 (specimen) EDT PM EDT Resulting Agency Comment Spec In Lab Aylin Masters MD HEMATOLOGY ORDERABLES Performing Organization Address City/State/[place] [address] CERNER MILLENNIUM (ABNORMAL) Hemogram (01/24/2015 5:39 PM EDT) P athologist Signature WBC 5.7 4.0 - 10.0 CERNER x10(3)/mcL MILLENNIUM RBC 4.56 3.93 - CERNER 5.22 MILLENNIUM x10(6)/mcL Hemoglobin 13.9 11.2 - CERNER 15.7 gm/dL MILLENNIUM Hematocrit 41.8 34.0 - CERNER 45.0 % MILLENNIUM MCV 91.7 79.0 - CERNER 94.0 fL MILLENNIUM MCH 30.5 26.6 - CERNER 32.2 pg MILLENNIUM MCHC 33.3 32.0 - CERNER 36.5 gm/dL MILLENNIUM Platelets 197 145 - 370 CERNER x10(3)/mcL MILLENNIUM RDWSD 46.4 (H) 35.0 - CERNER 46.0 fL MILLENNIUM RDWCV 13.8 10.9 - CERNER 14.4 % MILLENNIUM MPV 10.0 9.0 - 12.0 CERNER fL MILLENNIUM Specimen Anatomical Collection Method Collection Time Receive d Time (Source) Location / / Volume Laterality Blood specimen 01/24/2015 5:39 PM 015 5:43 (specimen) EDT PM EDT Resulting Agency Comment Spec In Lab Aylin Masters MD HEMATOLOGY ORDERABLES Performing Organization Address City/State/ZIP Code Phon e Number [address] [facility] TSH (01/24/2015 5:39 PM EDT) P athologist Signature TSH 2.76 0.27 - 4.20 CERNER mcIU/mL MILLENNIUM Specimen Anatomical Collection Method Collection Time Receive d Time (Source) Location / / Volume Laterality Blood specimen 01/24/2015 5:39 PM 015 5:43 (specimen) EDT PM EDT Resulting Agency Comment Spec In Lab Aylin Masters MD CHEMISTRY ORDERABLES Performing Organization Address City/[facility]/ZIP Code Phon e Number [address] [facility] documented in this encounter Visit Diagnoses Diagnosis Menopausal hot flushes Symptomatic menopausal or female climact [place] documented in this encounter Care Teams Manufacturing Chief Engineer Relationship Specialty Start Date End Date Monica Garcia MD PCP - General 01/06/13 02/27/17 [address] [place] [address] documented as of this encounter
--- OUTSIDE RECORDS SUMMARY | 2022-03-23 02:28 | XMS_ITS | Encounter Summary ---
:1965 Author Organization [facility] [place] [address] Care Team Providers Name Role Phone Monica Garcia MD Primary Care Provider Reason for Visit Reason Onset Date Comments Medication Refill 04/23/2014 Encounter Details Date Type Department Care Team Description 04/23/2014 Refill Obstetrics [place]cology [place] [address] Social History Tobacco Use Types Packs/Day [...] this encounter Miscellaneous Notes Telephone Encounter - Aundrea Canada RN - 04/23/2014 4:51 PM EDT TELEPHONE NOTE Caller: AUNDREA CANADA RN Reason for call: To inform Pt of refill for Climara patch for 1 month. Plan/Instructions: This sba underwriter contacted Pt and she has scheduled her annual appt for May. documented in this encounter Plan of Treatment Upcoming Encounters Date Type Specialty Care Team Description 04/10/2022 Appointment Radiology Luis Michael MD [facility] UROLOGY DEPT. [place], [place] [address] (Wo rk) 04/10/2022 Office Visit Urology Luis Michael MD [facility] UROLOGY DEPT. [place], [place] [address] (Wo rk) 07/13/2022 Appointment Maile Ríos MD [facility] ENDOCRINOLOGY [place], [place] [address] (Wo rk) 07/13/2022 Office Visit Endocrinology Maile Hinojosa MD [facility] ENDOCRINOLOGY [place], [place] [address] (Wo rk) documented as of this encounter Visit Diagnoses Not on filedocumented in this encounter Care Teams Business Support Coordinator Relationship Specialty Start Date End Date Monica Garcia MD PCP - General 01/06/13 02/27/17 [address] [place] [address] documented as of this encounter
--- OUTSIDE RECORDS SUMMARY | 2022-03-23 02:28 | XMS_ITS | Encounter Summary ---
:1965 Author Organization [facility] [place] [address] Care Team Providers Name Role Phone Monica Garcia MD Primary Care Provider Reason for Visit Reason Comments Follow-up Encounter Details Date Type Department Care Team Description 05/31/2016 Office Visit Obstetrics and Gynecology Ida Ron, SACHA IUD check up at [facility] Victor Manuel cifuentes [place] & [place] [address] GYNECOLOGY [phone] [place], [place] [address] (Wo rk) Social History Tobacco Use Types Packs/Day Years Used Date Never Smoker Smokeless Tobacco: Never Used Alcohol Use Standard Drinks/Week Comments No 0 (1 standard drink = 0.6 oz pure alcoho l) Sex Assigned at Date Recorded Female 01/29/2022 12:45 PM EDT documented as of this encounter Last Filed Vital Signs Vital Sign Reading Time Taken Comments Blood Pressure 104/66 05/31/2016 4:09 PM EDT Pulse 71 05/31/2016 4:09 PM EDT Temperature 36.5 ??C (97.7 ??F) 05/31/2016 4:09 PM EDT Respiratory Rate 16 05/31/2016 4:09 PM EDT Oxygen Saturation 100% 05/31/2016 4:09 PM EDT Inhaled Oxygen Concentration - - Weight 66 kg (145 lb 9.6 oz) 05/31/2016 4:09 PM EDT Height 172.7 cm (5' 8) 05/31/2016 4:09 PM EDT Body Mass Index 22.14 05/31/2016 4:09 PM EDT documented in this encounter Progress Notes Ida Ron APRN - 05/31/2016 4:00 PM EDT Reason for visit: IUD string check HPI: Pt is a yo G P female whom I placed a Mirena IUD in last month. She reports continued bleeding,spotting, no cramping, no fever or abnormal d/c. Her partner does not feel it. She has no concerns at this time. She is using this for darlene- menopausal bleeding. O: External genitalia: WNL Internal genitalia: WNL, IUD string visualized @ 2 cm in length. A: IUD string check P: Pt to check monthly. Call if any concerns. documented in this encounter Plan of Treatment Upcoming Encounters Date Type Specialty Care Team Description 04/10/2022 Appointment Radiology Luis Michael MD [facility] UROLOGY DEPT. [place], [place] [address] ( silva) 04/10/2022 Office Visit Urology Luis Michael MD [facility] UROLOGY DEPT. [place], [place] [address] (Wo rk) 07/13/2022 Appointment Radiology Maile Hinojosa MD [facility] ENDOCRINOLOGY [place], [place] [address] (Wo silva) 07/13/2022 Office Visit Endocrinology Maile Hinojosa MD [facility] ENDOCRINOLOGY [place], [place] [address] (Rahul ascencio) documented as of this encounter Visit Diagnoses Diagnosis IUD check up Surveillance of previously prescribed in trauterine contraceptive device documented in this encounter Care Teams Creative Guru Relationship Specialty Start Date End Date Monica Garcia MD PCP - General 01/06/13 02/27/17 [address] [place] [address] documented as of this encounter
--- OUTSIDE RECORDS SUMMARY | 2022-03-23 02:28 | XMS_ITS | Encounter Summary ---
:1965 Author Organization [facility] [place] [address] Care Team Providers Name Role Phone Monica Garcia MD Primary Care Provider Reason for Visit Reason Comments Medication Refill Encounter Details Date Type Department Care Team Description 01/17/2013 Refill Obstetrics and Gynecology at Genoveva Larkin MD [facility] Victor Manuel cifuentes OBSTETRICS & [place] [address] [place] [address] [phone] (Wo rk) Social History Tobacco Use Types [...] MD [facility] UROLOGY DEPT. [place], [place] [address] (Wo rk) 04/10/2022 Office Visit Urology Luis Michael MD [facility] UROLOGY [place], [place] [address] (Wo rk) 07/13/2022 Appointment Radiology Maile Hinojosa MD [facility] ENDOCRINOLOGY [place], [place] [address] (Wo rk) 07/13/2022 Office Visit Endocrinology Maile Hinojosa MD [facility] ENDOCRINOLOGY [place], [place] [address] (Wo rk) documented as of this encounter Visit Diagnoses Not on filedocumented in this encounter Care Teams Inspector Precision Assembly Relationship Specialty Start Date End Date Monica Garcia MD PCP - General 01/06/13 02/27/17 [address] [place] [address] documented as of this encounter
--- OUTSIDE RECORDS SUMMARY | 2022-03-23 02:28 | XMS_ITS | Encounter Summary ---
:1965 Author Organization [facility] [place] [address] Care Team Providers Name Role Phone Monica Garcia MD Primary Care Provider Encounter Details Date Type Department Care Team Description 01/06/2014 Telephone Obstetrics and Gynecology at Ramses Boyce MD [facility] Victor Manuel cifuentes OBSTETRICS & [place] [address] [place] [address] [phone] Social History Tobacco Use Types Packs/Day Years [...] this encounter Miscellaneous Notes Telephone Encounter - Ramses Birch - 01/06/2014 4:18 PM EDT Patient had called asking for refill on her Climara patch. I reviewed my note from her annual well woman visit ~9 months ago. At that time we discussed that some time this year we would withdraw her from the patch and check her FSH level to see whether she was transitioning to menopause and could comeoff of systemic hormones. I spoke with her and asked whether she wanted to do this at this time. She does not feel ready to asshe is going through a move right now and some other stressors. I told her I would refill her prescription for the next 3 months. I also discussed that I was graduating from my residency and would not be able to see her at that time, so she should set up a follow-up appointment in 3 months to discuss next steps. documented in this encounter Plan of Treatment Upcoming Encounters Date Type Specialty Care Team Description 04/10/2022 Appointment Radiology Luis Michael MD [facility] UROLOGY DEPT. [place] [address] (Wo rk) 04/10/2022 Office Visit Urology Luis Michael MD [facility] UROLOGY DEPT. [place], [place] [address] (Wo rk) 07/13/2022 Appointment Radiology Maile Hinojosa MD [facility] ENDOCRINOLOGY [place], [place] [address] (Wo rk) 07/13/2022 Office Visit Endocrinology Maile Hinojosa MD [facility] ENDOCRINOLOGY [place], [place] [address] (Wo rk) documented as of this encounter Visit Diagnoses Not on filedocumented in this encounter Care Teams Office Manager Receptionist Relationship Specialty Start Date End Date Monica Garcia MD PCP - General 01/06/13 02/27/17 [address] [place] [address] documented as of this encounter
--- OUTSIDE RECORDS SUMMARY | 2022-03-23 02:28 | XMS_ITS | Encounter Summary ---
:1965 Author Organization [facility] [place] [address] Care Team Providers Name Role Phone Monica Garcia MD Primary Care Provider Reason for Visit Reason Comments Nephrolithiasis Encounter Details Date Type Department Care Team Description 02/23/2014 Follow-Up Urology at [facility], DR ESPINO History of urinary [facility] Luis Michael Jr., MD [facility] [place] [address] stone (Primary Dx) [place] [address] Social History Tobacco Use Types Packs/Day [...] Sign Reading Time Taken Comments Blood Pressure 107/73 02/23/2014 4:45 PM EDT Pulse 84 02/23/2014 4:45 PM EDT Temperature - - Respiratory Rate - - Oxygen Saturation - - Inhaled Oxygen Concentration - - Weight 63.5 kg (140 lb) 02/23/2014 4:45 PM EDT Height 172.7 cm (5' 8) 02/23/2014 4:45 PM EDT Body Mass Index 21.29 02/23/2014 4:45 PM EDT documented in this encounter Progress Notes Luis Michael Jr., MD - 02/23/2014 4:58 PM EDT HPI Ms. Stacy Albright returns for follow up regarding urolithiasis. She is s/p SWL in 2007 and more recent left ureterscopy in 07/2010. Although ultrasounds have suggested a 4-5 mm left lower pole stone, CT confirmed no residual stone. Ms. Albright states that she has been well in the year since her last visit. She denies stone passage,suspected renal colic, specific abdominal or flank pain, hematuria, or new complaints. As noted, prior ultrasound had suggested a possible 5mm stone was noted in the left lower pole, however 07/2011CT confirmed there are no residual ureteral or renal stones. Ultrasound 12/2012 showed no evidence ofstones Her stone analysis showed 90% calcium oxalate dehydrate and 10% calcium phosphate. Review of systems: As above, otherwise unchanged since 12/2012 Past medical history: migraines, GERD, urolithiasis, osteoporosis Past surgical history: SWL, left ureteroscopy Family history: no history of urolithiasis Social History: no tobacco history; no alcohol use Dietary History: 3-4 liters fluid intake/day; low sodium intake; moderate purine/animal protein intake; moderate oxalate intake; moderate dairy intake . Physical Exam Vitals reviewed. Constitutional: She is oriented to person, place, and time. She appears well- developed and well-nourished. No distress. HENT: Head: Normocephalic and atraumatic. Cardiovascular: Normal rate. Pulmonary/Chest: Effort normal. Abdominal: Soft. She exhibits no distension. There is no tenderness. There is no rebound and no guarding. Genitourinary: No CVA tenderness to percussion Neurological: She is alert and oriented to person, place, and time. Skin: She is not diaphoretic. Psychiatric: She has a normal mood and affect. Her behavior is normal. Imaging studies: I independently reviewed the renal ultrasound from today. This reveals no evidence of hydronephrosis, hydroureter or stones. Impression/Plan: Doing well, without interval symptomatic stone recurrence. We reviewed follow up options. She wishes to continue planned follow up, but will extend interval. We will plan re-imaging with renal ultrasound in 18 months. She will call or return sooner if new interval problems arise. documented in this encounter Plan of Treatment Upcoming Encounters Date Type Specialty Care Team Description 04/10/2022 Appointment Radiology Luis Michael MD [facility] UROLOGY DEPT. [place], [place] [address] (Wo rk) 04/10/2022 Office Visit Urology Luis Michael MD [facility] UROLOGY DEPT. [place], [place] [address] (Wo rk) 07/13/2022 Appointment Radiology Maile Hinojosa MD [facility] ENDOCRINOLOGY [place], [place] [address] (Wo rk) 07/13/2022 Office Visit Endocrinology Maile Hinojosa MD [facility] ENDOCRINOLOGY [place], [place] [address] (Wo rk) documented as of this encounter Visit Diagnoses Diagnosis History of urinary stone - Primary Personal history of urinary calculi documented in this encounter Care Teams Dump Motor Operator Relationship Specialty Start Date End Date Monica Garcia MD PCP - General 01/06/13 02/27/17 [address] [place] [address] documented as of this encounter
--- OUTSIDE RECORDS SUMMARY | 2022-03-23 02:28 | XMS_ITS | Encounter Summary ---
:1965 Author Organization [facility] [place] [address] Care Team Providers Name Role Phone Monica Garcia MD Primary Care Provider Reason for Visit Reason Comments Osteoporosis Encounter Details Date Type Department Care Team Description 03/31/2013 Office Visit Endocrinology at [facility] Jennifer Pike, Osteoporosis (Primary [facility]) [place] [address] CENTER [phone] ENDOCRINOLOGY [place] [address] Social History Tobacco Use Types Packs/Day Years [...] Sign Reading Time Taken Comments Blood Pressure 121/79 03/31/2013 1:45 PM EDT Pulse 94 03/31/2013 1:45 PM EDT Temperature - - Respiratory Rate - - Oxygen Saturation - - Inhaled Oxygen Concentration - - Weight 66 kg (145 lb 9.6 oz) 03/31/2013 1:45 PM EDT Height 173.4 cm (5' 8.27) 03/31/2013 1:45 PM EDT Body Mass Index 21.96 03/31/2013 1:45 PM EDT documented in this encounter Progress Notes Dang Sanchez MD - 03/31/2013 3:25 PM EDT I have seen the patient and reviewed Dr. Romero's above history and I agree with the details as written. The assessment and plan were formulated in discussion with me and I agree with them as documented. It's good that she has been off steroid for asthma and DEXA scan today showed stable result (T-score -2.5 same as before). Pt'll cont HRT, calcium and vitD supplement to keep vitD in mid normal rangefurther (25vitD was ok at [address] last [address] Romero will let her know lab results and will follow DEXA scan again in 2 yrs. DANG SANCHEZ MD Jennifer Romero MD - 03/31/2013 1:57 PM EDT Endocrinology Consultation Patient: Name: Stacy Albright : 1965 PCP: MONICA GARCIA MD Stacy Albright was seen in Endocrine clinic for follow up of osteoporosis Brief History of Present Illness: Stacy Albright is a very pleasant 47 y.o. year old female for follow up of 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She was evaluated by METALLOGRAPHY TEACHER and found to have osteoporosis on Dexa scan done 01/2011 likely from chronic steroid use for her asthma.Patient saw seen at endocrinology a year ago and we decided to hold off on bisphosphonate since patient had very low risk for fracture although she had osteoporosis on DEXA.Patient has not had any fractures or any loss in height since.She has been abl;e to come off her steroid for asthma.She is on estrogen patch for her perimenopausal symptoms. Ca and Vit D intake -Patient has been taking a new multivitamin with calcium and D and does not recall the dose. Drinks around 2 tall glasses/day,yoghurt,Some cheese Exercise - Walk half an hour 3 times a week Patient with history of Kidney stones-multiple, ESWL in 2007 and again in 2009 with ureteral stents placement.Her work up in 2007 revealed increased urinary calcium excretion but normal calcium and PTH.Tries to restrict oxalate in diet. No polyuria,polydipsia or bone pain at present. Family history -Osteoporosis in mother at 60.grandmother with osteoporosis ROS: Constitutional: Fatigue, recent weight gain with prednisone,no hot flashes Endocrine: no sweating or flushing. No galactorrhea or breast tenderness. Normal libido. Integument: Excess body hair after starting prednisone, No balding, acne or oily skin. No ulcerations. No Easy Bruising Neurological: Migraine headache.No weakness. No seizure, fainting or dizziness Eyes: No recent vision change ENT: No dysphagia, dental issues Cardiovascular: No chest pain or palpitations Respiratory:Chronic asthma GI: Normal appetite. No nausea, vomiting, has occasional constipation : No frequent urinary tract infections or polyuria Musculoskeletal: No joint aches, muscle pain. No back pain Psych: depression PMH: Nephrolithiasis Asthma Raynauds Migraines Perimenopause Depression Outpatient Meds: Estradiol-levonorgestrel 0.045/0.015mg 24 hr patch Ergocalciferol D2 Calcium Sertraline Advair Nasonex Mometasone Allergy: Grass pollen-[place] Social History with Kids Never smoked.No alcohol Use Sexually active. PE Blood pressure 121/79, pulse 94, height 173.4 cm (5' 8.27), weight 66.044 kg (145 lb 9.6 oz). Appearance: Patient is very pleasant 47 y.o. years old female, clinically euthyroid, not in acute distress Skin - normal in texture and temperature, no acanthosis nigricans around the nape of the neck, no abnormal striae or ecchymosis. HEENT - PERRLA, EOMI, no lid lag or exophthalmos Neck - supple, no goiter or nodule, no lymphadenopathy, no carotid bruit Lungs - Normal chest expansion, no crackles or wheeze Heart - regular rhythm, normal apical impulse, normal S1, S2 and no murmur Abdomen - soft, non-tender, no hepatosplenomegaly Extremities - no pitting edema, normal distal pulses, no proximal muscle weakness, reflexes were normal Ref. Range 03/31/2013 14:27 Calcium Latest Range: 8.5-10.5 mg/dL 9.5 25-OH Vit D Total Latest Range: 30-100 ng/mL 44 Last DEXA 12/2012 Findings Lowest T-score T-score: -2.5 at Femoral neck ,BMD 0.575 02/13/2011 Femoral neck T-score = -2.5,total neck 1.8 FRAX Patient's 10-year risk of any fracture is 6%. Patient's 10-year risk of hip fracture is 2%. Assessment: Stacy Albright is a 47 y.o. year old female for follow up of Osteoporosis.Her BMD nad T score at the hip has essentially remained stable over the last 2 years.It ios very encouraging that the patient has not lost any bone since 2010.By FRAX analysis, patient's 10-yr probability for major osteoporotic fracture was 6 % and hip fracture 2%. Patient has low risk for fracture based on her FRAX score and does not need treatment with a bisphosphonate at present.Patient is on estrogen patch for her perimenopausal symptoms which should also protect her from 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 Recommendation: Diet-Increase dietary calcium intake like milk and yogurt . Recommend total Calcium (Dietary+supplement) of 1000-1500mg and vitamin D3 800-1000 IU daily.Patient should not exceed 1500 mg of calcium daily given her history of kidney stones. Continue weight bearing exercises for 30 mins at least 3 times a week. Her levels of vitamin D and calcium Was normal. Follow up DEXA scan in [address] visit [address] Dr Hall in 2 years with the DEXA scan since I will have graduated by then. Patient seen and examined with Dr Daniel Romero MD Endocrinology Fellow [id number] documented in this encounter Plan of Treatment Upcoming Encounters Date Type Specialty Care Team Description 04/10/2022 Appointment Radiology Luis Michael MD [facility] UROLOGY DEPT. [place], [place] [address] (Wo rk) 04/10/2022 Office Visit Urology Luis Michael MD [facility] UROLOGY DEPT. [place], [place] [address] (Wo rk) 07/13/2022 Appointment Radiology Maile Hinojosa MD [facility] ENDOCRINOLOGY [place], [place] [address] (Wo rk) 07/13/2022 Office Visit Endocrinology Maile Hinojosa MD [facility] ENDOCRINOLOGY [place], [place] [address] (Wo rk) documented as of this encounter Procedures Procedure Name Priority Date/Time Associated Diagnosis Comme nts VITAMIN D, Routine 03/31/2013 2:27 PM Osteoporosis Results f or this 25-HYDROXY EDT procedure are i n the results section. CALCIUM Routine 03/31/2013 2:27 PM Osteoporosis Results f or this EDT procedure are i n the results section. documented in this encounter Results VIT D Total Evaluation (03/31/2013 2:27 PM EDT) P athologist Signature 25-OH Vit D 44 30 - 100 CERNER Total ng/mL [facility] Comment: Deficient <10 ng/mL Insufficient 10 to 29 ng/mL Sufficient 30 to 100 ng/mL Potential Intoxication >100 ng/mL According to the US National Osteoporosi s Foundation, Vitamin D concentrations >30 ng/mL are sufficient to protect bone health. ??The National Kidney Foundation has similarly stated that pat ients with Vitamin D concentrations <30ng/mL should be considered to be insu fficient or deficient. http://www.kidney.org/professionals/KDOQ I/guidelines_bone/Guide7.htm http://www.nof.org/professionals/clinica l-guidelines The IDS iSYS Vitamin D Immunoassay detec ts both 25-OH Vitamin D2 and 25-OH Vitamin D3, but only a total Vitamin D c oncentration is reported. Specimen Anatomical Collection Method Collection Time Receive d Time (Source) Location / / Volume Laterality Blood specimen 03/31/2013 2:27 PM 013 2:43 (specimen) EDT PM EDT Resulting Agency Comment Spec In Lab Dang Sanchez MD CHEMISTRY ORDERABLES Performing Organization Address City/State/ZIP Code Phon e Number [address] CERNER MILLENNIUM Calcium (03/31/2013 2:27 PM EDT) athologist Signature Calcium 9.5 8.5 - 10.5 CERNER mg/dL [place] Specimen Anatomical Collection Method Collection Time Receive d Time (Source) Location / / Volume Laterality Blood specimen 03/31/2013 2:27 PM 013 2:43 (specimen) EDT PM EDT Resulting Agency Comment Spec In Lab Dang Sanchez MD CHEMISTRY ORDERABLES Performing Organization Address City/[facility]/ZIP [place] [address] CERNER MILLENNIUM documented in this encounter Visit Diagnoses Diagnosis Osteoporosis - Primary Osteoporosis, unspecified documented in this encounter Care Teams Legal Coordinator Relationship Specialty Start Date End Date Monica Garcia MD PCP - General 01/06/13 02/27/17 [address] [place] [address] documented as of this encounter
--- OUTSIDE RECORDS SUMMARY | 2022-03-23 02:28 | XMS_ITS | Encounter Summary ---
:1965 Author Organization [facility] [place] [address] Care Team Providers Name Role Phone Monica Garcia MD Primary Care Provider Encounter Details Date Type Department Care Team Description 07/14/2014 Orders Only Obstetrics and Gynecology Ida Ron APRN at [facility] Victor Manuel cifuentes OBSTETRICS & [place] [address] [place] [address] [phone] (Wo rk) Social History Tobacco Use Types [...] MD [facility] UROLOGY DEPT. [place], [place] [address] (Wo rk) 04/10/2022 Office Visit Urology Luis Michael MD [facility] UROLOGY DEPT. [place], [place] [address] (Wo rk) 07/13/2022 Appointment Radiology Maile Hinojosa MD [facility] ENDOCRINOLOGY [place], [place] [address] (Wo rk) 07/13/2022 Office Visit Endocrinology Maile Hinojosa MD [facility] ENDOCRINOLOGY [place], [place] [address] (Wo rk) documented as of this encounter Visit Diagnoses Not on filedocumented in this encounter Care Teams Chief Meteorologist Relationship Specialty Start Date End Date oMnica Garcia MD PCP - General 01/06/13 02/27/17 [address] [place] [address] documented as of this encounter
--- OUTSIDE RECORDS SUMMARY | 2022-03-23 02:28 | XMS_ITS | Encounter Summary ---
:1965 Author Organization [facility] [place] [address] Care Team Providers Name Role Phone Monica Garcia MD Primary Care Provider Encounter Details Date Type Department Care Team Description 06/18/2014 Hospital Encounter Mammography at [facility] [place] [address] Social History Tobacco Use Types Packs/Day [...] inhaler daily as needed (winter time). Evening Rosepine Oil 500 0 08/24/2010 01/24/2015 mg Cap [...] [facility] UROLOGY DEPT. [place], [place] [address] (Wo rk) 04/10/2022 Office Visit Urology Luis Michael MD [facility] UROLOGY DEPT. [place], [place] [address] (Wo rk) 07/13/2022 Appointment Radiology Maile Hinojosa MD [facility] ENDOCRINOLOGY [place], [place] [address] (Wo rk) 07/13/2022 Office Visit Endocrinology Maile Hinojosa MD [facility] [address] [place], [place] [address] (Wo rk) documented as of this encounter Procedures Procedure Name Priority Date/Time Associated Comments Diagnosis MAMMO CALL BACK Routine 06/18/2014 2:24 PM Result s for this DIAGNOSTIC EXTRA EDT procedure a re in VIEW UNILATERAL the results section. documented in this encounter Results Mammo call back diagnostic extra view unilateral (06/18/2014 2:24 PM EDT) Anatomical Region Laterality Modality Breast N/A Mammography Specimen (Source) Anatomical Collection Method Collection Time Re ceived Time Location / / Volume Laterality 06/18/2014 2:24 PM EDT Narrative 06/22/2014 12:46 PM EDT [...] th is study. ?? Procedure Note Sherrie Lweis MD - 06/22/2014 BILATERAL DIRECT DIGITAL 2D/3D [...] No change or finding worrisome for maldiya leivacy is seen in either breast. On 06/18/14 [...] routine screening. is associated with is study. Ida Dayna Ron APRN IMG MAMMO ORDERABLES documented in this encounter Visit Diagnoses Not on filedocumented in this encounter Care Teams Seal Mixing Operator Relationship Specialty Start Date End Date Monica Garcia MD PCP - General 01/06/13 02/27/17 [address] [place] [address] documented as of this encounter
--- OUTSIDE RECORDS SUMMARY | 2022-03-23 02:29 | XMS_ITS | Encounter Summary ---
:1965 Author Organization [place] [address] Care Team Providers Name Role Phone Monica Garcia MD Primary Care Provider Reason for Visit Reason Onset Date Comments Results 07/31/2011 Encounter Details Date Type Department Care Team Description 07/31/2011 Telephone [place]rology [place] [facility] Luis Michael Jr., MD Results [facility] [address] UROLOGY DEPT. [phone] [place], [place] [address] (Wo rk) Social History Tobacco Use Types Packs/Day Years Used Date Never Smoker Alcohol Use Standard Drinks/Week Comments Yes 0 [...] Encounter - Luis Michael Jr., MD - 07/31/2011 6:[address] reviewed, no stones seen. Left ovarian or paraovarian cyst noted. I recommended that she see her CORPORATE LEGAL MANAGER for further discussion and/or eval. She understands and will plan to call CORPORATE LEGAL MANAGER tomorrow. No urologic intervention needed at this time. documented in this encounter Plan of Treatment Upcoming Encounters Date Type Specialty Care Team Description 04/10/2022 Appointment Radiology Luis Michael MD [facility] UROLOGY [place], [place] [address] (Wo rk) 04/10/2022 Office Visit Urology Luis Michael MD [facility] UROLOGY [place], [place] [address] (Wo rk) 07/13/2022 Appointment Radiology Maile Hinojosa MD [facility] ENDOCRINOLOGY [place], [place] [address] (Wo rk) 07/13/2022 Office Visit Endocrinology Maile Hinojosa MD [facility] ENDOCRINOLOGY [place], [place] [address] (Wo rk) documented as of this encounter Visit Diagnoses Not on filedocumented in this encounter Care Teams Dormitory Maid Relationship Specialty Start Date End Date Monica Garcia MD PCP - General 07/18/10 03/05/12 [address] [place] [address] documented as of this encounter
--- OUTSIDE RECORDS SUMMARY | 2022-03-23 02:29 | XMS_ITS | Encounter Summary ---
:1965 Author Organization [facility] [place] [address] Care Team Providers Name Role Phone Monica Garcia MD Primary Care Provider Encounter Details Date Type Department Care Team Description 12/07/2010 Office Visit Lab [address] [place] [address] Social History Tobacco Use Types Packs/Day [...] MD [facility] UROLOGY DEPT. [place], [place] [address] (Wo rk) 04/10/2022 Office Visit Urology Luis Michael MD [facility] UROLOGY DEPT. [place], [place] [address] (Wo rk) 07/13/2022 Appointment Radiology Maile Hinojosa MD [facility] ENDOCRINOLOGY [place], [place] [address] (Wo rk) 07/13/2022 Office Visit Endocrinology Maile Hinojosa MD [facility] ENDOCRINOLOGY [place], [place] [address] (Wo rk) documented as of this encounter Visit Diagnoses Not on filedocumented in this encounter Care Teams Tester Operator Relationship Specialty Start Date End Date Monica Garcia MD PCP - General 07/18/10 03/05/12 [address] [place] [address] documented as of this encounter
--- OUTSIDE RECORDS SUMMARY | 2022-03-23 02:29 | XMS_ITS | Encounter Summary ---
:1965 Author Organization [facility] [place] [address] Care Team Providers Name Role Phone Monica Garcia MD Primary Care Provider Encounter Details Date Type Department Care Team Description 07/26/2010 Follow-Up Dermatology Sarah Kidd MD [facility] [place] [address] [facility] [address]-DERMATOLOGY [phone] [place], [place] [address] (Wo rk) Social History Tobacco Use Types Packs/Day Years Used Date Never Assessed Sex Assigned at Date Recorded Female 01/29/2022 12:45 PM EDT documented as of this encounter Plan of Treatment Upcoming Encounters Date Type Specialty Care Team Description 04/10/2022 Appointment Radiology Luis Michael MD [facility] UROLOGY DEPT. [place], [place] [address] (Wo rk) 04/10/2022 Office Visit Urology Luis Michael MD [facility] UROLOGY DEPT. [place], [place] [address] (Wo rk) 07/13/2022 Appointment Radiology Maile Hinojosa MD [facility] ER ENDOCRINOLOGY [place], [place] [address] (Wo rk) 07/13/2022 Office Visit Endocrinology Maile Hinojosa MD [facility] ER ENDOCRINOLOGY [place], [place] [address] (Wo rk) documented as of this encounter Visit Diagnoses Not on filedocumented in this encounter Care Teams Ultrasound Specialist Relationship Specialty Start Date End Date Monica Garcia MD PCP - General 07/18/10 03/05/12 [address] [place] [address] documented as of this encounter
--- OUTSIDE RECORDS SUMMARY | 2022-03-23 02:29 | XMS_ITS | Encounter Summary ---
:1965 Author Organization [facility] [place] [address] Care Team Providers Name Role Phone Monica Garcia MD Primary Care Provider Reason for Visit Reason Comments Gynecologic Exam Encounter Details Date Type Department Care Team Description 12/07/2010 Office Visit Obstetrics and Bobby Diamond Routine check-up; Gynecology at [facility] MD [facility] [place] [address] OBSTETRICS & [phone] GYNECOLOGY [place], [place] [address] (Wo rk) Social History Tobacco [...] Sign Reading Time Taken Comments Blood Pressure 98/64 12/07/2010 2:03 PM EDT Pulse - - Temperature - - Respiratory Rate - - Oxygen Saturation - - Inhaled Oxygen Concentration - - Weight 67 kg (147 lb 12.8 oz) 12/07/2010 2:03 PM EDT Height 175.3 cm (5' 9) 12/07/2010 2:03 PM EDT Body Mass Index 21.83 12/07/2010 2:03 PM EDT documented in this encounter Patient Instructions Patient InstructionsCatalina Maldonado - 12/07/2010 4:36 PM EDT 1. Have your TSH and cholesterol checked at one of our outpatient labs. You need to be fasting for at least 8hrs prior to having your blood drawn to check cholesterol. 2. DEXA scan 3. Rx sent to your pharmacy for new hormone replacement patch 4. Baby oil or astroglide for lubrication with intercourse 5. Refer to the websites that Dr. Diamond provided you with regarding the assessment of your risk for developing cardiovascular disease, breast cancer and 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 documented in this encounter Progress Notes Catalina Maldonado - 12/07/2010 4:07 PM EDT Subjective: Patient ID: Stacy Albright is a 45 y.o. female. JASPREET Kumar is a 45 y.o. yo [place]-menopausal female who presents for her annual HEALTH CARE LAW SPECIALIST exam. She continues to use Climara-Pro and states that she likes it but has started to have some vaginal dryness which she notices with intercourse and has also noticed that her hair is falling out. She continues to have fairly regular, monthly menses. She is occasionally a couple of weeks late every 3-4 cycles and states that her menses during these cycles are heavier (changing a pad/tampon every 2hrs) and more painful (helped by Midol and tylenol). Her menses last for 7 days. She denies having to get upat night to change her pad in order to avoid an accident. She denies any intermenstrual bleeding. She is currently sexually active with her . They rely on her 's vasectomy for contraception. She does note that her vaginal dryness can cause some discomfort with intercourse and does notcurrently use any form of lubrication. No post-coital spotting. No history of STIs. Last pap in 07/2009 was normal. She has a remote history of an abnormal pap smear as a teenager thatshe received cryotherapy for but denies any other significant history. Health Maintenance: Mammogram: Performed today Cholesterol: unsure Colon Cancer Screening: Never Thyroid: 2.08 in 2007 Bone Density: Never OBHx: GynHx: Please see above. PMHx: Asthma, Raynaud's nephrolithiasis, migraines, GERD PSHx: Lithotripsy FamHx: PGM with breast cancer diagnosed age 40-50. No family history of ovarian, colon or uterine cancer. SocHx: . Non-smoker. Rare alcohol use. Review of Systems Constitutional: + Excessive fatigue. Denies fevers, chills, unexplained weight gain or loss Eyes: Normal vision, denies blurring, double vision Ear, Nose,Throat: Denies sore or scratchy throat, lesions, hearing changes. Cardiovascular: No chest pain, palpitations Respiratory: Denies shortness of breath, cough or sputum production. Gastrointestinal: + Constipation. No nausea or vomiting Genitourinary: No dysuria, increased frequency or abnormal vaginal discharge Musculoskeletal: Denies joint or muscle pains. Integument : + Dry skin and brittle hair. No breast masses. Denies any rashes. Psychiatric: + Mood is slightly depressed from normal state. Endocrine: Denies heat or cold intolerance. Objective: Physical Exam Filed Vitals: 12/07/10 1403 BP: 98/64 General: well appearing middle aged woman Skin: no rashes Neck: no thyromegaly or lymphadenopathy Back: no CVA tenderness Lungs: clear to auscultation bilaterally, no wheezes or rales Heart: regular rhythm, normal rate, no m/r/g Abdomen: + bowel sounds, no masses or HSM, soft, nontender, nondistended Pelvic: External Genitalia - no lesions, normal hair distribution Vagina - normal, no lesions, pink rugated, normal discharge Cervix - normal appearance, normal discharge Uterus - mid-position, normal in size, shape, mobility, and consistency, no tenderness Adnexa - nontender, no masses appreciated Extremities: no edema or calf tenderness Neuro: grossly intact Assessment and Plan: Ms. Albright is a 45yo [place]-menopausal woman who presents for her annual exam, which was benign. 1. [place]-menopause: Given her symptoms of a hypoestrogenic state including vaginal dryness and hair loss we recommend changing her HRT patch to the Combipatch (0.05mg estradiol). We encouraged her to use lubrication, such as baby oil, with intercourse and will consider the Estring if her symptoms of vag inal dryness worsen. 2. Health maintenance: Check TSH given positive findings on review of systems. Will also check cholesterol. Mammogram performed today. Last pap smear in 07/2009 so not due for another 6-18 months. DEXAscan. 3. Encouraged patient to visit websites that will help her assess her risk of developing cardiovascular disease, breast cancer and 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 documented in this encounter Plan of Treatment Upcoming Encounters Date Type Specialty Care Team Description 04/10/2022 Appointment Radiology Luis Michael MD [facility] UROLOGY DEPT. [place] [id number] (Wo rk) 04/10/2022 Office Visit Urology Luis Michael MD [facility] UROLOGY DEPT. [place], [place] [address] (Wo rk) 07/13/2022 Appointment Radiology Maile Hinojosa MD [facility] ENDOCRINOLOGY [place], [place] [address] (Wo rk) 07/13/2022 Office Visit Endocrinology Maile Hinojosa MD [facility] ENDOCRINOLOGY [place], [place] [address] (Wo rk) documented as of this encounter Visit Diagnoses Diagnosis Routine check-up Routine general medical examination at a health care facility Perimenopause Symptomatic menopausal or female climact wendy states documented in this encounter Care Teams Plant Protection Guard Relationship Specialty Start Date End Date Monica Garcia MD PCP - General 07/18/10 03/05/12 [address] [place] [address] documented as of this encounter
--- OUTSIDE RECORDS SUMMARY | 2022-03-23 02:29 | XMS_ITS | Encounter Summary ---
:1965 Author Organization [facility] [place] [address] Care Team Providers Name Role Phone Monica Garcia MD Primary Care Provider Encounter Details Date Type Department Care Team Description 10/04/2011 Hospital Encounter Ultrasound at [facility] [place] [address] Social History Tobacco Use Types Packs/Day [...] 0.63 0 08/24/2010 mg/3 mL nebulizer solution fluticasone-salmeterol Inhale 1 puff into 0 06/27/2017 (ADVAIR) 500-50 mcg/dose the lungs 2 times diskus inhaler daily as needed (winter time). norethindrone-ethinyl Take 1 tablet by 84 tablet 4 08/09/20 11 03/06/2012 estradiol (OVCON-35, 28,) mouth daily. Please 0.4-35 mg-mcg per tablet throw out the 7 placebo pills and start a new pack to take packs continuously. TRIAMCINOLONE ACETONIDE by Nasal route. 0 07/03/2012 (NASACORT AQ NASL) predniSONE (DELTASONE) 20 Take 25 mg by mouth 0 07/03/2012 mg tablet daily. estradiol-norethindrone Place 1 patch onto 8 patch 12 11/2412/07/2011 (COMBIPATCH) 0.05-0.14 the skin twice a mg/24 hrIndications: week. Perimenopause fexofenadine (JEREL) 60 Take by mouth 0 07/03/2012 mg tablet daily. SERTRALINE HCL (SERTRALINE 0 0 03/31/2013 ORAL) Evening [place] Oil 500 0 08/24/2010 01/24/2015 mg Cap [...] MD [facility] UROLOGY DEPT. [place], [place] [address] (Wo rk) 04/10/2022 Office Visit Urology Luis Michael MD [facility] UROLOGY DEPT. [place], [place] [address] (Wo rk) 07/13/2022 Appointment Radiology Maile Hinojosa MD [facility] ENDOCRINOLOGY [place], [place] [address] (Wo rk) 07/13/2022 Office Visit Endocrinology Maile Hinojosa MD [facility] ENDOCRINOLOGY [place], [place] [address] ( rk) documented as of this encounter Procedures Procedure Name Priority Date/Time Associated Comments Diagnosis US TRANSVAGINAL NON Routine 10/04/2011 4:01 PM Ovarian cyst Re sults for this OB EST procedure are i n the results section. documented in this encounter Results US Transvaginal non OB (10/04/2011 4:01 PM EST) Anatomical Region Laterality Modality Ultrasound Specimen (Source) Anatomical Collection Method Collection Time Re ceived Time Location / / Volume Laterality 10/04/2011 4:01 PM EST Narrative 10/04/2011 4:09 PM EST ?Gynecological Report ? (Signed Final 10/04/2011 04 :08 pm) Patient Info ID: ? [id number] ? : ??[birth year] (46 yrs) Name: ? JESSICAKATIE GTZ ? Visit Date: 10/04/2011 03:50 pm Performed By Performed By: ?Lay Nichols RDMS Attending: ? Marcus Rush, Michelle Referred By: ? BOBBY Rush Service(s) Provided UTV - Ultrasound - Transvaginal - [phone] ? [id number] Indications Reason for exam and clinical history: [age] year old with ovarian cyst (see previous TVUS); please evaluate for resolution / interval parish ge ------- History ------- Age: ?? 46 ------ Uterus ------ Uterus: ? Visualized Position: ?? Anteverted Size (cm) ?L: ??8.32 ?W: ?? 4.88 ? H: ??4.33 Vol (ml): ?92.1 Endometrium Endometrium: ?Normal appea reinier Thickness(mm): ?1.8 Right Ovary Status: ?? Visualized Size (cm) ?L: ??3.49 ?W: ?? 2.78 ? H: ??2.99 Vol (ml): ?15.2 Morphology: ?Normal appearance Type: ?? Follicle Size (cm) ?L: ??2.7 ? W: ?? 2.3 ?H: ??2.3 Vol (ml): ?7.5 Left Ovary Status: ?? Visualized Size (cm) ?L: ??2.84 ?W: ?? 2.01 ? H: ??1.55 Vol (ml): ?4.6 Morphology: ?Normal appearance Impression Ultrasound - Transvaginal - Summary The uterus and adnexa are normal. The endometrial echo complex measures 1 .8 mm. This study was performed transvaginally . I ??viewed the images and agree with krsiti christianson above interpretation. Thank you for allowing us to participat e in the care of JESSICA GTZ. Please do not hesitate to call if you have any questions. ? Michelle middleton MD Electronically Signed Final Report ?? 04:08 pm Procedure Note Michelle Walsh MD - 012 Gynecological Report (Signed Final 10/04/2011 04:08 pm) Patient Info ID: [id number] : [birth year] (46 yrs ) Name: JESSICA GTZ Visit Date: 10/04 03:50 pm Performed By Performed By: Lay Nichols [facility] Attending: Michelle Walsh MD Referred By: BOBBY LAGOS MD Service(s) Provided [facility] - Ultrasound - Transvaginal - [phone] Indications Reason for exam and clinical history: [age] year old with ovarian cyst (see previous TVUS); please evaluate for resolution / interval parish Popcuts ------- History ------- Age: 46 ------ Uterus ------ Uterus: Visualized Position: Anteverted Size (cm) L: 8.32 W: 4.88 H: 4.33 Vol (ml): 92.1 Endometrium Endometrium: Normal appearance Thickness(mm): 1.8 Right Ovary Status: Visualized Size (cm) L: 3.49 W: 2.78 H: 2.99 Vol (ml): 15.2 Morphology: Normal appearance Type: Follicle Size (cm) L: 2.7 W: 2.3 H: 2.3 Vol (ml): 7.5 Left Ovary Status: Visualized Size (cm) L: 2.84 W: 2.01 H: 1.55 Vol (ml): 4.6 Morphology: Normal appearance Impression Ultrasound - Transvaginal - Summary The uterus and adnexa are normal. The endometrial echo complex measures 1 .8 mm. This study was performed transvaginally . I viewed the images and agree with the above interpretation. Thank you for allowing us to participat e in the care of JESSICA GTZ. Please do not hesitate to call if you have any questions. Michelle Hill MD Electronically Signed Final Report 10/04 04:08 pm Bobby Lagos MD IMG US PELVIC ORDERABLES documented in this encounter Visit Diagnoses Diagnosis Ovarian cyst Other and unspecified ovarian cyst documented in this encounter Care Teams Employee Benefits Director Relationship Specialty Start Date End Date Monica Garcia MD PCP - General 07/18/10 03/05/12 [address] [place] [address] documented as of this encounter
--- OUTSIDE RECORDS SUMMARY | 2022-03-23 02:29 | XMS_ITS | Encounter Summary ---
:1965 Author Organization [facility] [place] [address] Care Team Providers Name Role Phone None Primary Care Provider Unavailable Encounter Details Date Type Department Care Team Description 03/06/2012 Hospital Encounter Mammography at [facility] [place] [address] Social History Tobacco Use Types Packs/Day [...] 0.63 0 08/24/2010 mg/3 mL nebulizer solution cetirizine (ZYRTEC) 10 mg Take 10 mg by mouth 0 02/12/2022 tablet daily. estradiol-levonorgestrel Place 1 patch onto 4 patch 3 07/201207/03/2012 (CLIMARA PRO) 0.045-0.015 the skin once a mg/24 hrIndications: week. Perimenopause MOMETASONE FUROATE by Nasal route 0 (NASONEX NASL) daily. fluticasone-salmeterol Inhale 1 puff into 0 06/27/2017 (ADVAIR) 500-50 mcg/dose the lungs 2 times diskus inhaler daily as needed (winter time). TRIAMCINOLONE ACETONIDE by Nasal route. 0 07/03/2012 (NASACORT AQ NASL) predniSONE (DELTASONE) 20 Take 25 mg by mouth 0 07/03/2012 mg tablet daily. fexofenadine (JEREL) 60 Take by mouth 0 07/03/2012 mg tablet daily. SERTRALINE HCL (SERTRALINE 0 0 03/31/2013 ORAL) Evening [place] Oil 500 0 08/24/2010 01/24/2015 mg Cap [...] MD [facility] UROLOGY DEPT. [place], [place] [address] (Wo silva) 04/10/2022 Office Visit Urology Luis Michael MD [facility] UROLOGY DEPT. [place], [place] [address] (Rahul ascencio) 07/13/2022 Appointment Radiology Maile Hinojosa MD [facility] ENDOCRINOLOGY [place], [place] [address] (Wo rk) 07/13/2022 Office Visit Endocrinology Maile Hinojosa MD [facility] ENDOCRINOLOGY [place], [place] [address] (Wo rk) documented as of this encounter Procedures Procedure Name Priority Date/Time Associated Diagnosis Comme nts COKE CRUSHER OPERATOR CYTOLOGY FINAL Routine 03/06/2012 8:45 PM Res ults for this REPORT EDT procedure are i n the results section. MAMMO SCREENING CAD Routine 03/06/2012 3:58 PM Re sults for this BILATERAL EDT procedure are i n the results section. documented in this encounter Results COKE CRUSHER OPERATOR CYTOLOGY FINAL REPORT (03/06/2012 8:45 PM EDT) Component Value Ref Test Analysis Performed At [facility] Range Method Time Signature Genetics Physician Cytology CERNER Final Report ? [facility] ? Provider: ?? [place] BIRCH ?Pt. Name: ?? LAW SON, JESSICA Charles ? Acc #: ?[id number] ?Pt. MRN: ?[id number] ? Col Date: ?? 03/06/2012 ? /Sex: ?1 10/14/1964,(46 ? years),Female ? Rec Date: ?? 03/06/2012 ? LOC: ?5L ? CYTOPATHOLOGY: ??COKE CRUSHER OPERATOR ? ---Adequacy--- ? Specimen submitted is satisfactory. ? Endocervical component present. ? ---Cytopathologic Diagnosis--- ? Infection and/or Reactive Repair Process. ? Note: ??Reactive changes are present in the epithel ial cells (benign ? cellular changes). ?? This Pap test is negative for intraepithelial lesion ? or malignancy. (NILM) ? 03/19/12 ?? Screened by: ??SLA ??UX DESIGNER ? 03/23/12 ?? Verified by: ??YUNG GILL , DRE - Pathologist ? ---Clinical Information--- ? HPV Option: ? Reflex HPV ? Preparation: ?Liquid Based Pap ? Specimen Source: ?Cervical Endocervical LBP ? LMP: ?continous bleeding ? Hormones?: ?Yes ? Hysterectomy?: ?No ?: ?No ?: ?No ? I.U.D.?: ?No ? Pelvic Radiation: ? No ? Prior COKE CRUSHER OPERATOR Therapy?: ? No ? Hist Abnl Pap/Biopsy?: ??Yes-pap after Cryo,LEEP ? Hist of HPV Vaccine?: ?? No ? Hist of Smoking?: ? No ? Hist of HAZEL exposure?: ??No ? Clinical Data, Significant Therapy and Clinical Impre ssion: ? Note: ? The Pap test is a screening test for cervical c ancer with an inherent ? false-negative rate dependent upon several variables. ??For further ? information please contact the [facility] Laboratory. ? Reference: ??Antwan sheriff CS. ??Radio Frequency Design Engineer of Pap Smear Results. ??In: ? Sukumar BS, Roni HH, ed. ??The Pap Smear. ??[place]: ??Jonah, 2002: ? 71-77. Specimen (Source) Anatomical Collection Method Collection Time Re ceived Time Location / / Volume Laterality 03/06/2012 8:45 PM EDT Indiana Birch MD PATHOLOGY/CYTOLOGY ORDERABLE S Performing Organization Address City/State/[place] [address] CERNER Valued RelationshipsENNIUM MAMMO DIGITAL BILATERAL SCREENING WITH CAD (03/06/2012 3:58 PM EDT) Anatomical Region Laterality Modality Breast Bilateral Mammography Specimen (Source) Anatomical Collection Method Collection Time Re ceived Time Location / / Volume Laterality 03/06/2012 3:58 PM EDT Narrative 03/13/2012 9:10 AM EDT BILATERAL MAMMOGRAPHY ?? REASON FOR EXAM: Screening ?? TECHNIQUE: Cranio-caudal (CC) and mediol ateral oblique (MLO) views of both breasts obtained with direct digital cap ture. The exam was evaluated by CAD Version 8.3.17. ?? FINDINGS: This is a negative mammogram ( ACR Category 1). There is a stable fibroglandular pattern without significa nt change as compared to prior studies. There is no mammographic evidence of can cer. ? The breasts are heterogeneously dense wh ich may limit mammographic sensitivity for the detection of malignancy. ? CONCLUSION ?? This is a NEGATIVE mammogram (ACR Catego ry 1). Routine screening mammography is recommended with the frequency dependent on the patient's age and breast cancer risk factors. ?? A letter has been sent to this patient b [facility]. Procedure Note Rola Chambers MD - 02/23 BILATERAL MAMMOGRAPHY REASON FOR EXAM: Screening TECHNIQUE: Cranio-caudal (CC) and mediol ateral oblique (MLO) views of both breasts obtained with direct digital cap ture. The exam was evaluated by CAD Version 8.3.17. FINDINGS: This is a negative mammogram ( ACR Category 1). There is a stable fibroglandular pattern without significa nt change as compared to prior studies. There is no mammographic evidence of can cer. The breasts are heterogeneously dense wh ich may limit mammographic sensitivity for the detection of malignancy. CONCLUSION This is a NEGATIVE mammogram (ACR Catego ry 1). Routine screening mammography is recommended with the frequency dependent on the patient's age and breast cancer risk factors. A letter has been sent to this patient b [facility]. Indiana Birch MD IMG MAMMO ORDERABLES documented in this encounter Visit Diagnoses Not on filedocumented in this encounter Care Teams Supplier Quality Engineer Relationship Specialty Start Date End Date None PCP - General 03/06/12 01/05/13 None documented as of this encounter
--- OUTSIDE RECORDS SUMMARY | 2022-03-23 02:29 | XMS_ITS | Encounter Summary ---
:1965 Author Organization [facility] [place] [address] Care Team Providers Name Role Phone None Primary Care Provider Unavailable Encounter Details Date Type Department Care Team Description 03/27/2012 Telephone Endocrinology at [facility] Jennifer Pike MD [facility] [place] [address] ENDOCRINOLOGY DEPT [phone] [place], [place] [address] (Wo rk) Social History Tobacco [...] this encounter Miscellaneous Notes Telephone Encounter - Jennifer Romero MD - 03/27/2012 4:39 PM EDT I called Miss Albright to inform her about her test results.Her vitamin D,calcium and PTH levels are normal.She should continue with calcium and vitamin D and regular weight bearing exercises.I would follow up with her in 1 year with a dexa scan. documented in this encounter Plan of Treatment Upcoming Encounters Date Type Specialty Care Team Description 04/10/2022 Appointment Radiology Luis Michael MD [facility] UROLOGY DEPT. [place], [place] [address] (Wo rk) 04/10/2022 Office Visit Urology Luis Michael MD [facility] UROLOGY DEPT. [place], [place] [address] (Wo rk) 07/13/2022 Appointment Radiology Maile Hinojosa MD [facility] ENDOCRINOLOGY [place], [place] [address] (Wo rk) 07/13/2022 Office Visit Endocrinology Maile Hinojosa MD [facility] ENDOCRINOLOGY [place], [place] [address] (Wo rk) documented as of this encounter Visit Diagnoses Not on filedocumented in this encounter Care Teams Hand Cooper Helper Relationship Specialty Start Date End Date None PCP - General 03/06/12 01/05/13 None documented as of this encounter
--- OUTSIDE RECORDS SUMMARY | 2022-03-23 02:29 | XMS_ITS | Encounter Summary ---
:1965 Author Organization [facility] [place] [address] Care Team Providers Name Role Phone Monica Garcia MD Primary Care Provider Encounter Details Date Type Department Care Team Description 12/07/2010 Orders Only Obstetrics and Gynecology Lucy Germain APRN at [facility] Victor Manuel cifuentes [place] [address] [place] [address] [phone] (Wo rk) Social History Tobacco Use Types [...] [facility] UROLOGY DEPT. [place], [place] [address] (Wo rk) 04/10/2022 Office Visit Urology Luis Michael MD [facility] UROLOGY DEPT. [place], [place] [address] (Wo rk) 07/13/2022 Appointment Radiology Maile Hinojosa MD [facility] ENDOCRINOLOGY [place], [place] [address] (Wo rk) 07/13/2022 Office Visit Endocrinology Maile Hinojosa MD [facility] ENDOCRINOLOGY [place], [place] [address] (Wo rk) documented as of this encounter Procedures Procedure Name Priority Date/Time Associated Diagnosis Comme nts MAMMO SCREENING CAD Routine 12/07/2010 1:47 PM Re sults for this BILATERAL EDT procedure are i n the results section. documented in this encounter Results MAMMO DIGITAL BILATERAL SCREENING WITH CAD (12/07/2010 1:47 PM EDT) Anatomical Region Laterality Modality Breast Bilateral Mammography Specimen (Source) Anatomical Collection Method Collection Time Re ceived Time Location / / Volume Laterality 12/07/2010 1:47 PM EDT Narrative 12/08/2010 10:58 AM EDT Reason for Exam: Screening ?? Technique: Craniocaudal (CC) and Medio-l ateral Oblique (MLO) views of both breasts obtained with direct digital cap ture. The exam was evaluated by CAD version 8. 3.17. ?? Findings: ?? This is a negative mammogram (ACR Catego ry 1). ??There is a stable fibroglandular pattern without significa nt change from prior studies. There is no mammographic evidence of can cer. ??The breasts are extremely dense which greatly limits mammographic sensit ivity for the detection of malignancy. ?? CONCLUSION: This is a NEGATIVE mammogram (ACR Catego ry 1). ?? Routine screening mammography is recomme nded with the frequency dependent upon the patient's age and breast cancer risk factors. A letter has been sent to this patient b y the breast imaging center. Procedure Note Lucy Decker MD - 12/08/2010Format ting of this note might be different from the original. Reason for Exam: Screening Technique: Craniocaudal (CC) and Medio-l ateral Oblique (MLO) views of both breasts obtained with direct digital cap ture. The exam was evaluated by CAD version 8. 3.17. Findings: This is a negative mammogram (ACR Catego ry 1). There is a stable fibroglandular pattern without significa nt change from prior studies. There is no mammographic evidence of can cer. The breasts are extremely dense which greatly limits mammographic sensit ivity for the detection of malignancy. CONCLUSION: This is a NEGATIVE mammogram (ACR Catego ry 1). Routine screening mammography is recomme nded with the frequency dependent upon the patient's age and breast cancer risk factors. A letter has been sent to this patient b y the breast imaging center. Lucy Germain APRN IMG MAMMO ORDERABLES documented in this encounter Visit Diagnoses Not on filedocumented in this encounter Care Teams Purchase Order Checker Relationship Specialty Start Date End Date Monica Garcia MD PCP - General 07/18/10 03/05/12 [address] [place] [address] documented as of this encounter
--- OUTSIDE RECORDS SUMMARY | 2022-03-23 02:29 | XMS_ITS | Encounter Summary ---
:1965 Author Organization [facility] [place] [address] Care Team Providers Name Role Phone Monica Garcia MD Primary Care Provider Reason for Visit Reason Comments Follow-up Encounter Details Date Type Department Care Team Description 01/06/2013 Follow-Up Urology at [facility] [place]INO Urolithiasis (Primary [facility] Luis Michael Jr., MD [facility] DR UROLOGY DEPT. [place] [id number] Dx) [place] [address] Social History Tobacco Use Types Packs/Day [...] documented as of this encounter Progress Notes Luis Michael Jr., MD - 01/06/2013 4:36 PM EDT HPI Ms. Stacy Albright returns for follow up regarding a previously non- obstructing asymptomatic left renal stone. She is s/p SWL in 2007 and more recent left ureterscopy in 07/2010. Although ultrasounds have suggested a 4-5 mm left lower pole stone, CT confirmed no residual stone. Ms. Albright states that she has been well since her last visit. She denies specific abdominal or flank pain, hematuria, or new complaints. As noted, prior ultrasound had suggested a possible 5mm stone was noted in the left lower pole, however 07/2011 CT confirmed there are no residual ureteral or renal stones. Ultrasound 07/07 again suggested a 4-5mm nonobstructing left lower pole stone. She will be having a bone scan upcoming to assess status 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 Her stone analysis showed 90% calcium oxalate dehydrate and 10% calcium phosphate. She drinks enough to put out 2 litres of urine per day, she has not been moderating her diet as well. She has reduced salt, oxalate (peanuts/peanut butter, berries, nuts and chocolate). She drinks somedairy. Review of Systems Gastrointestinal: Negative for abdominal pain. Genitourinary: Negative for flank pain and hematuria. Past medical history: migraines, GERD, urolithiasis, [...] appears well- developed and well-nourished. No distress. Abdominal: Soft. She exhibits no distension. There [...] from today. This reveals no evidence of hydronephrosis or hydroureter. No stones are seen. I independently reviewed the CT from 07/2011 aswell. This reveals no evidence of hydronephrosis, hydroureter, or urinary tract stones. Impression/Plan: Doing well, without interval symptomatic stone recurrence. We discussed that if shehas recurrent stone activity, we can repeat 24h urine, particularly if she needs medical intervention for 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 Otherwise, we will plan re-imaging with renal ultrasound on an annual basis. She will call or return sooner if new interval problems arise. documented in this encounter Plan of Treatment Upcoming Encounters Date Type Specialty Care Team Description 04/10/2022 Appointment Radiology Luis Michael MD [facility] UROLOGY DEPT. [place], [place] [address] (Wo rk) 04/10/2022 Office Visit Urology Luis Michael MD [facility] UROLOGY DEPT. [place], [place] [address] (Wo rk) 07/13/2022 Appointment Radiology Maile Hinojosa MD [facility] ENDOCRINOLOGY [place], [place] [address] (Wo rk) 07/13/2022 Office Visit Endocrinology Maile Hinojosa MD [facility] ENDOCRINOLOGY [place], [place] [address] (Wo rk) documented as of this encounter Visit Diagnoses Diagnosis Urolithiasis - Primary Urinary calculus, unspecified documented in this encounter Care Teams Supervisor Education Relationship Specialty Start Date End Date Monica Garcia MD PCP - General 01/06/13 02/27/17 [address] [place] [address] documented as of this encounter
--- OUTSIDE RECORDS SUMMARY | 2022-03-23 02:29 | XMS_ITS | Encounter Summary ---
:1965 Author Organization [facility] [place] [address] Care Team Providers Name Role Phone None Primary Care Provider Unavailable Reason for Visit Reason Comments Medication Refill Encounter Details Date Type Department Care Team Description 06/24/2012 Refill Obstetrics [facility]necology at [facility] MD [facility] Victor Manuel cifuentes OBSTETRICS & [place] [address] [place] [address] [phone] Social History Tobacco Use Types Packs/Day Years [...] Appointment Radiology Luis Michael MD [facility] UROLOGY DEPT. [place], [place] [address] (Wo rk) 04/10/2022 Office Visit Urology Luis Michael MD [facility] UROLOGY DEPT. [place], [place] [address] (Wo rk) 07/13/2022 Appointment Radiology Maile Hinojosa MD [facility] ENDOCRINOLOGY [place], [place] [address] (Wo rk) 07/13/2022 Office Visit Endocrinology Maile Hinojosa MD [facility] ENDOCRINOLOGY [place], [place] [address] (Wo rk) documented as of this encounter Visit Diagnoses Not on filedocumented in this encounter Care Teams Process Operator Relationship Specialty Start Date End Date None PCP - General 03/06/12 01/05/13 None documented as of this encounter
--- OUTSIDE RECORDS SUMMARY | 2022-03-23 02:29 | XMS_ITS | Encounter Summary ---
:1965 Author Organization [facility] [place] [address] Care Team Providers Name Role Phone Monica Garcia MD Primary Care Provider Encounter Details Date Type Department Care Team Description 01/08/2012 Hospital Encounter Ultrasound at [facility] [place] [address] Social History Tobacco Use Types Packs/Day [...] 0.63 0 08/24/2010 mg/3 mL nebulizer solution MOMETASONE FUROATE by Nasal route 0 (NASONEX [...] HCL (SERTRALINE 0 0 03/31/2013 ORAL) Evening [place] Oil 500 0 08/24/2010 01/24/2015 mg Cap [...] [facility] UROLOGY DEPT. [place], [place] [address] (Wo silva) 04/10/2022 Office Visit Urology Ferdinand Michael MD [facility] UROLOGY DEPT. [place], [place] [address] (Rahul ascencio) 07/13/2022 Appointment Radiology Maile Hinojosa MD [facility] ENDOCR[facility] [place], [place] [address] (Wo rk) 07/13/2022 Office Visit Endocrinology Maile Hinojosa MD [facility] ENDOCRINOLOGY [place], [place] [address] (Wo rk) documented as of this encounter Procedures Procedure Name Priority Date/Time Associated Diagnosis Comme nts US RETROPERITONEAL Routine 01/08/2012 4:31 Nephrolithiasis Res ults for this COMPLETE PM EDT procedure are i n the results section. documented in this encounter Results US retroperitoneal complete (01/08/2012 4:31 PM EDT) Anatomical Region Laterality Modality Abdomen Ultrasound Specimen (Source) Anatomical Collection Method Collection Time Re ceived Time Location / / Volume Laterality 01/08/2012 4:31 PM EDT Narrative 01/08/2012 4:59 PM EDT ? Renal ? (Signed Final 01/08/2012 04 :58 pm) Patient Info ID: ? [id number] ? : ??[birth year] (46 yrs) Name: ? JESSICA Melvin GTZ ? Visit Date: 01/08/2012 04:29 pm Performed By Performed By: ?Akash Muse RDMS Attending: ? Veronica GILL, Weston Maloney Referred By: ? FERDINAND MICHAEL MD Service(s) Provided URETRO - Retroperitoneal Complete - [phone] [id number] ? [id number] Indications Nephrolithiasis Right Kidney Size (cm) ?L: ??10.4 Cortical Thickness: ?Normal Cortical Echogenicity: ?? Normal Hydronephrosis: ?No sonogr aphic evidence Left Kidney Size (cm) ?L: ??10.4 Cortical Thickness: ?Normal Cortical Echogenicity: ?? Normal Hydronephrosis: ?No sonogr aphic evidence Comment: ? small upper and lower p ole stones, non ? obstructing Urinary Bladder Comment: ?Partially distended, norm al contour Impression Ultrasound - ??Retroperitoneal Complete - Summary Suspect two tiny non obstructing left r enal stones, otherwise normal study. I ??viewed the images and agree with kristi christianson above interpretation. Thank you for allowing us to participat e in the care of JESSICA GTZ. Please do not hesitate to call if you have any questions. ? Weston Martin MD Electronically Signed Final Report ?? 04:58 pm Procedure Note Weston Martin MD - 01/08/2012Format ting of this note might be different from the original. Renal (Signed Final 01/08/2012 04:58 pm) Patient Info ID: [id number] : [birth year] (46 yrs ) Name: JESSICA GTZ Visit Date: 01/07 04:29 pm Performed By Performed By: Akash Muse RDMS Attending: Weston Martin MD. Referred By: FERDINAND MICHAEL MD Service(s) Provided URETRO - Retroperitoneal Complete - [phone] [id number] Indications Nephrolithiasis Right Kidney Size (cm) L: 10.4 Cortical Thickness: Normal Cortical Echogenicity: Normal Hydronephrosis: No sonographic evidence Left Kidney Size (cm) L: 10.4 Cortical Thickness: Normal Cortical Echogenicity: Normal Hydronephrosis: No sonographic evidence Comment: ? small upper and lower pole s tones, non obstructing Urinary Bladder Comment: Partially distended, normal co ntour Impression Ultrasound - Retroperitoneal Complete - Summary Suspect two tiny non obstructing left r enal stones, otherwise normal study. I viewed the images and agree with the above interpretation. Thank you for allowing us to participat e in the care of JESSICA GTZ. Please do not hesitate to call if you have any questions. Weston Martin MD Electronically Signed Final Report 01/07 04:58 pm Ferdinand Michael Jr., MD IMG US GEN ORDERABLES documented in this encounter Visit Diagnoses Diagnosis Nephrolithiasis Calculus of kidney documented in this encounter Care Teams Chief Service Dispatcher Relationship Specialty Start Date End Date Monica Garcia MD PCP - General 07/18/10 03/05/12 [address] [place] [address] documented as of this encounter
--- OUTSIDE RECORDS SUMMARY | 2022-03-23 02:29 | XMS_ITS | Encounter Summary ---
:1965 Author Organization [facility] [place] [address] Care Team Providers Name Role Phone Monica Garcia MD Primary Care Provider Encounter Details Date Type Department Care Team Description 07/27/[address] Scan at [facility], DR ESPINO Nephrolithiasis [facility] Luis Michael Jr., MD [facility] [place] [address] [place] [address] Social History Tobacco Use Types [...] 0.63 0 08/24/2010 mg/3 mL nebulizer solution TRIAMCINOLONE ACETONIDE by Nasal route. 0 07/03/2012 (NASACORT AQ NASL) predniSONE (DELTASONE) 20 Take 25 mg by mouth 0 07/03/2012 mg tablet daily. estradiol-norethindrone Place 1 patch onto 8 patch 12 11/2412/07/2011 (COMBIPATCH) 0.05-0.14 the skin twice a mg/24 hrIndications: week. Perimenopause fexofenadine (JEREL) 60 Take by mouth 0 07/03/2012 mg tablet daily. SERTRALINE HCL (SERTRALINE 0 0 03/31/2013 ORAL) Evening [place] Oil 500 0 08/24/2010 01/24/2015 mg Cap FOLIC ACID/VITAMIN B COMP 0 08/24/2010 04/10/2016 W-C (B-COMPLEX WITH VITAMIN C ORAL) SUMATRIPTAN SUCCINATE 0 08/24/201001/2016 (IMITREX ORAL) tacrolimus (PROTOPIC) 0.1 1 Appl(s) Top Twice 0 1 02/12/2022 % ointment daily ERGOCALCIFEROL, VITAMIN 0 08/24/2010 0 04/10/2016 D2, (VITAMIN D ORAL) KETOCONAZOLE (NIZORAL TOP) Apply topically. 0 02/12/2022 BUDESONIDE/FORMOTEROL 0 08/24/2010 FUMARATE (SYMBICORT INHL) documented as of this encounter Plan of Treatment Upcoming Encounters Date Type Specialty Care Team Description 04/10/2022 Appointment Radiology Luis Michael MD [facility] UROLOGY DEPT. [place], [place] [address] (Rahul ascencio) 04/10/2022 Office Visit Urology Luis Michael MD [facility] UROLOGY DEPT. [place], [place] [address] (Rahul ascencio) 07/13/2022 Appointment Radiology Maile Hinojosa MD [facility] END[facility] [place], [place] [address] (Wo rk) 07/13/2022 Office Visit Endocrinology Maile Hinojosa MD [facility] ENDOCR[facility]Y [place], [place] [address] (Wo rk) documented as of this encounter Procedures Procedure Name Priority Date/Time Associated Diagnosis Comme nts CT ABDOMEN AND Routine 07/27/2011 4:36 PM Nephrolithiasis Resu lts for this PELVIS WO CONTRAST EST procedure are in the results section. documented in this encounter Results CT abdomen & pelvis WO contrast (07/27/2011 4:36 PM EST) Anatomical Region Laterality Modality Abdomen, Pelvis Computed Tomography Specimen (Source) Anatomical Collection Method Collection Time Re ceived Time Location / / Volume Laterality 07/27/2011 4:36 PM EST Narrative 07/31/2011 8:[address] ABDOMEN AND PELVIS WITHOUT CONTRAST: HISTORY: ?? Low-dose stone protocol, lef t flank pain. ??Question stones. CONTRAST: ??None. COMPARISON: ??05/03. FINDINGS: ??There is no evidence of uppe r or lower urinary tract calculi. ??No hydronephrosis is noted. ??There is poss ibly a left ovarian or paraovarian cyst that measures 4.2 cm, suggest ultrasound for confirmation of this or further evaluation. ??The urinary bladder is unr emarkable. ??No ureteral calculi are seen either. CONCLUSION: ?? 1. ??No evidence of urinary tract calcul i. 2. ??Possible 4.2 cm left ovarian or par aovarian cyst, suggest ultrasound for further evaluation. Procedure Note Salvador Yang MD - 07/31/2011Formatt ing of this note might be different from the original. CT ABDOMEN AND PELVIS WITHOUT CONTRAST: HISTORY: Low-dose stone protocol, left f lank pain. Question stones. CONTRAST: None. COMPARISON: 05/03. FINDINGS: There is no evidence of upper or lower urinary tract calculi. No hydronephrosis is noted. There is possib ly a left ovarian or paraovarian cyst that measures 4.2 cm, suggest ultrasound for confirmation of this or further evaluation. The urinary bladder is unrem arkable. No ureteral calculi are seen either. CONCLUSION: 1. No evidence of urinary tract calculi. 2. Possible 4.2 cm left ovarian or parao varian cyst, suggest ultrasound for further evaluation. Luis Michael Jr., MD IMG CT ORDERABLES documented in this encounter Visit Diagnoses Diagnosis Nephrolithiasis Calculus of kidney documented in this encounter Care Teams Embedded Developer Relationship Specialty Start Date End Date Monica Garcia MD PCP - General 07/18/10 03/05/12 [address] [place] [address] documented as of this encounter
--- OUTSIDE RECORDS SUMMARY | 2022-03-23 02:29 | XMS_ITS | Encounter Summary ---
:1965 Author Organization [facility] Address [facility] [place] [address] Care Team Providers Name Role Phone Monica Garcia MD Primary Care Provider Encounter Details Date Type Department Care Team Description 02/13/2011 Hospital Encounter XRay at [facility] Routine check-up [address] [place] [address] Social History Tobacco Use Types Packs/Day [...] 0.63 0 08/24/2010 mg/3 mL nebulizer solution estradiol-norethindrone Place 1 patch onto 8 patch 12 11/2412/07/2011 (COMBIPATCH) 0.05-0.14 the skin twice a mg/24 hrIndications: week. Perimenopause amlodipine (NORVASC) 5 mg Take 5 mg by mouth 0 07/09/2011 tablet daily. fexofenadine (JEREL) 60 Take by mouth 0 07/03/2012 mg tablet daily. SERTRALINE HCL (SERTRALINE 0 0 03/31/2013 ORAL) azelastine (ASTELIN) 137 0 08/24/2010 07/25/2011 mcg nasal spray Evening [place] Oil 500 0 08/24/2010 01/24/2015 mg Cap [...] Description 04/10/2022 Appointment Radiology Luis Michael MD [facility] UROLOGY DEPT. [place], [place] [address] (Wo rk) 04/10/2022 Office Visit Urology Luis Michael MD [facility] UROLOGY DEPT. [place], [place] [address] (Rahul rk) 07/13/2022 Appointment Radiology Maile Hinojosa MD [facility] ENDOCRINOLOGY [place], [place] [address] (Rahul ascencio) 07/13/2022 Office Visit Endocrinology Maile Hinojosa MD [facility] [place], [place] [address] (Wo rk) documented as of this encounter Procedures Procedure Name Priority Date/Time Associated Diagnosis Comme nts DXA CENTRAL SPINE, Routine 02/13/2011 12:55 PM Routine general Results for this HIP, AND/OR WHOLE EDT medical examination pro cedure are in BODY (GENERIC) at a health care [facility] section. documented in this encounter Results DEXA CENTRAL-SPINE, HIP, AND/OR WHOLE BODY (02/13/2011 12:55 PM EDT) Anatomical Region Laterality Modality C-spine, Hip N/A Radiographic Imaging Specimen (Source) Anatomical Collection Method Collection Time Re ceived Time Location / / Volume Laterality 02/13/2011 12:55 PM EDT Narrative 02/14/2011 5:41 PM EDT DEXA, 02/13/11: ?? CLINICAL HISTORY: ??45-year-old woman wi th family history of 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 ?? FINDINGS: ?? Measurements were acquired at the lumbar spine and left hip. ?? The patient's lowest bone mineral densit y measurement is a T-score of -2.5 at the femoral neck. ??Although the patient is not yet 48 and does not meet strict criteria for a diagnosis by WHO criteria , I would consider this measurement to be diagnostic of osteoporosis and indica tive of a high risk for future fracture. ?? IMPRESSION: Osteoporosis. ?? ESTIMATING FRACTURE RISK: ?? The relationship between bone mineral de nsity (BMD) and risk of fracture is well established. As BMD decreases, risk increases. Quantifying risk is difficult and is usually limited to quoc mation of the relative risk - a term which may have limited value when trying to discuss an individual's risk. Estimating the absolute risk for a patie nt requires an understanding of the incidence rate in a given population and consideration of multiple, partially independent, risk factors in addition to BMD. ?? The World Health Organization (WHO) has developed a fracture risk prediction tool that calculates a ten-year risk of major osteoporotic fracture based on femoral neck bone density measurements a nd nine clinical risk factors for individuals who have not been treated fo r 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 This is available through an interactive web-based [employer] ce (http://www.shef.ac.uk/FRAX/) and can be used to estimate a given patient' s absolute risk of major osteoporotic fracture or hip fracture over the next 1 0 years. These estimates may prove useful when discussing risk with a patie nt. It is important, however, to understand the tool's limitations and ho w a given individual's risk might differ from the tool's estimate. The too l does not take into account the dose-response associated with most risk factors. ??For example, the significant increase in risk associated with multipl e prior fractures compared to a single prior fracture is not taken into account . Similarly, the location of a previous fracture, the amount of glucocorticoids and number of cigarettes smoked are not considered. These limitations are discus sed in a Frequently Asked Questions section of the FRAX website which you ar e encouraged to review. ?? DEXA data sheets with BMD measurements a nd plots are available in CIS under Radiology Images. Paper copies will be sent to providers without CIS access. If you have received this report without the d isrrael sheet and do not have access to CIS, please contact Radiology Loft Rigger at [phone] Saturday thru Saturday 8am-4pm. Procedure Note Sanket Zhou MD - 02/14/2011Forma tting of this note might be different from the original. DEXA, 02/13/11: CLINICAL HISTORY: 45-year-old woman with family history of 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 FINDINGS: Measurements were acquired at the lumbar spine and left hip. The patient's lowest bone mineral densit y measurement is a T-score of -2.5 at the femoral neck. Although the patient i s not yet 48 and does not meet strict criteria for a diagnosis by WHO criteria , I would consider this measurement to be diagnostic of osteoporosis and indica tive of a high risk for future fracture. IMPRESSION: Osteoporosis. ESTIMATING FRACTURE RISK: The relationship between bone mineral de nsity (BMD) and risk of fracture is well established. As BMD decreases, risk increases. Quantifying risk is difficult and is usually limited to quoc mation of the relative risk - a term which may have limited value when trying to discuss an individual's risk. Estimating the absolute risk for a patie nt requires an understanding of the incidence rate in a given population and consideration of multiple, partially independent, risk factors in addition to BMD. The World Health Organization (WHO) has developed a fracture risk prediction tool that calculates a ten-year risk of major osteoporotic fracture based on femoral neck bone density measurements a nd nine clinical risk factors for individuals who have not been treated fo r 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 This is available through an interactive web-based [employer] ce (http://www.shef.ac.uk/FRAX/) and can be used to estimate a given patient' s absolute risk of major osteoporotic fracture or hip fracture over the next 1 0 years. These estimates may prove useful when discussing risk with a patie nt. It is important, however, to understand the tool's limitations and ho w a given individual's risk might differ from the tool's estimate. The too l does not take into account the dose-response associated with most risk factors. For example, the significant increase in risk associated with multipl e prior fractures compared to a single prior fracture is not taken into account . Similarly, the location of a previous fracture, the amount of glucocorticoids and number of cigarettes smoked are not considered. These limitations are discus sed in a Frequently Asked Questions section of the FRAX website which you ar e encouraged to review. DEXA data sheets with BMD measurements a nd plots are available in CIS under Radiology Images. Paper copies will be sent to providers without CIS access. If you have received this report without the d isrrael sheet and do not have access to CIS, please contact Radiology Loft Rigger at [phone] Saturday thru Saturday 8am-4pm. Bobby Diamond MD [facility]a DEXA ORDERABLES documented in this encounter Visit Diagnoses Diagnosis Routine check-up Routine general medical examination at a health care facility documented in this encounter Care Teams Veneer Marker Relationship Specialty Start Date End Date Monica Garcia MD PCP - General 07/18/10 03/05/12 [address] [place] [address] documented as of this encounter
--- OUTSIDE RECORDS SUMMARY | 2022-03-23 02:29 | XMS_ITS | Encounter Summary ---
:1965 [place] [address] Care Team Providers Name Role Phone Monica Garcia MD Primary Care Provider Encounter Details Date Type Department Care Team Description 07/25/2010 Orders Only Lab [facility] Ferdinand Michael Jr., MD [facility] Manuel cifuent[facility] [place] [address] [place] [address] [phone] (Wo rk) Social History Tobacco Use Types Packs/Day Years Used Date Never Assessed Sex Assigned at Date Recorded Female 01/29/2022 12:45 PM EDT documented as of this encounter Plan of Treatment Upcoming Encounters Date Type Specialty Care Team Description 04/10/2022 Appointment Radiology Ferdinand Michael MD [facility] UROLOGY DEPT. [place], [place] [address] (Wo rk) 04/10/2022 Office Visit Urology Ferdinand Michael MD [facility] UROLOGY DEPT. [place], [place] [address] (Wo rk) 07/13/2022 Appointment Radiology Maile Hinojosa MD [facility] ENDOCR[facility] [place], [place] [address] (Wo rk) 07/13/2022 Office Visit Endocrinology Maile Hinojosa MD [facility] END[facility] [place], [place] [address] (Wo rk) documented as of this encounter Procedures Procedure Name Priority Date/Time Associated Diagnosis Comme nts URINE CULTURE Routine 07/25/2010 5:00 PM Results for this EST procedure are i n the results section . documented in this encounter Results URINE CULTURE (07/25/2010 5:00 PM EST) [facility] Method Time Signature Urine Culture CERNER ? Patient Name: JESSICA GTZ ? Ordered By: FERDINAND MICHAEL JR [facility] ? MR#: [id number] ?LOC: ??5B ? /Sex: ??1965 (44 years), ? Female ? PROCEDURE: Urine Culture ?SOURCE: T CC ? COLLECTED: 07/25/2010 17:00 ? STARTED: 07/25/2010 18:01 ? FINAL REPORT ? Final Report ? Verified:07/26/2010 15:08 ? No growth (Less than 1,000 cfu/ml). ? Specimen (Source) Anatomical Collection Method Collection Time Re ceived Time Location / / Volume Laterality Urine specimen 07/25/2010 5:00 07/25/2010 5:54 obtained by clean PM EST PM EST catch procedure (specimen) Ferdinand Michael Jr., MD MICROBIOLOGY - GENERAL ORDER MERLE Performing Organization Address City/State/[place] [address] [facility] documented in this encounter Visit Diagnoses Not on filedocumented in this encounter Care Teams Trend Investigator Relationship Specialty Start Date End Date Monica Garcia MD PCP - General 07/18/10 03/05/12 [address] [place] [address] documented as of this encounter
--- OUTSIDE RECORDS SUMMARY | 2022-03-23 02:29 | XMS_ITS | Encounter Summary ---
:1965 Author Organization [place] [address] Care Team Providers Name Role Phone Monica Garcia MD Primary Care Provider Reason for Visit Reason Comments Nephrolithiasis Encounter Details Date Type Department Care Team Description 01/08/2012 Follow-Up Urology at [facility], DR ESPINO Nephrolithiasis (Primary [facility] Ferdinand Michael Jr., MD [facility] DR UROLOGY DEPT. [place] [id number] Dx) [place] [id number] Social History Tobacco Use Types Packs/Day Years [...] Sign Reading Time Taken Comments Blood Pressure 112/71 01/08/2012 4:54 PM EDT Pulse 73 01/08/2012 4:54 PM EDT Temperature - - Respiratory Rate - - Oxygen Saturation - - Inhaled Oxygen Concentration - - Weight 67.1 kg (148 lb) 01/08/2012 4:54 PM EDT Height 174 cm (5' 8.5) 01/08/2012 4:54 PM EDT Body Mass Index 22.18 01/08/2012 4:54 PM EDT documented in this encounter Progress Notes Ferdinand Michael Jr., MD - 01/08/2012 5:06 PM EDT Subjective: Patient ID: Jessica Gtz is a 46 y.o. female. HPI Ms. Jessica Gtz returns for follow up regarding her nephrolithiasis. She is s/p SWL in nd more recent left ureterscopy in 07/2010. Ms. Gtz states that she has been well since her last visit. She denies specific abdominal or flank pain, hematuria, or new complaints. A prior ultrasound had suggested a possible 5mm stone was noted in the left lower pole, however at her last visit, CT confirmed there are no residual ureteral orrenal stones. Her stone analysis showed 90% calcium oxalate dehydrate and 10% calcium phosphate. She drinks enough to put out 2 litres of urine per day, she has not been moderating her diet as well. She cuts back on salt, some oxalates-peanuts/peanut butter, some berries, nuts and chocolate. Eats some dairy. Past medical history: migraines, GERD, urolithiasis, ankle injury/pain Past surgical history: SWL Family history: no history of urolithiasis Social History: no tobacco history; no alcohol use Dietary History: 3-4 liters fluid intake/day; low sodium intake; moderate purine/animal protein intake; moderate oxalate intake; moderate dairy intake . Review of Systems adnexal cyst had resolved by her report, otherwise unchanged since last visit Objective: Physical Exam Vitals reviewed. Constitutional: She is oriented to person, place, and time. She appears well- developed and well-nourished. No distress. HENT: Head: Normocephalic and atraumatic. Cardiovascular: Normal rate. Pulmonary/Chest: Effort normal. No respiratory distress. Abdominal: Soft. She exhibits no distension and no mass. No tenderness. She has no rebound and no guarding. Genitourinary: No CVA tenderness to percussion Neurological: She is alert and oriented to person, place, and time. Skin: Skin is warm and dry. She is not diaphoretic. Psychiatric: She has a normal mood and affect. Her behavior is normal. Imaging studies: I independently reviewed the renal ultrasound from today. This reveals no evidence of hydronephrosis or hydroureter. A possible 4 mm left lower pole non-obstructing stone is seen. I independently reviewed the CT from 07/2011. This reveals no evidence of hydronephrosis, hydroureter, or urinary tract stones. Assessment and Plan: Impression/Plan: Doing well, without interval symptomatic stone recurrence. Possible small asymptomatic nonobstructing left lower pole stone. We reviewed mgmt options for this including watchful waiting, SWL, ureteroscopy. She elects watchful waiting and requests re-evaluation in 6 months. She will call or return sooner if new interval problems arise. documented in this encounter Plan of Treatment Upcoming Encounters Date Type Specialty Care Team Description 04/10/2022 Appointment Radiology Ferdinand Michael MD [facility] UROLOGY DEPT. [place], [place] [address] (Wo silva) 04/10/2022 Office Visit Urology Ferdinand Michael MD [facility] UROLOGY DEPT. [place], [place] [address] (Wo rk) 07/13/2022 Appointment Radiology Maile Hinojosa MD [facility] ENDOCRINOLOGY [place], [place] [address] (Wo silva) 07/13/2022 Office Visit Endocrinology Maile Hinojosa MD [facility] ENDOCRINOLOGY [place], [place] [address] (Rahul ascencio) documented as of this encounter Results US retroperitoneal complete (07/08/2012 3:49 PM EST) Anatomical Region Laterality Modality Abdomen Ultrasound Specimen (Source) Anatomical Collection Method Collection Time Re ceived Time Location / / Volume Laterality 07/08/2012 3:49 PM EST Narrative 07/08/2012 5:17 PM EST ? Renal ? (Signed Final 07/08/2012 05 :16 pm) Patient Info ID: ? [id number] ? : ??[birth year] (46 yrs) Name: ? JESSICA GTZ ? Visit Date: 07/08/2012 03:45 pm Performed By Performed By: ?Shane Burciaga RDMS Attending: ? Noman GILL, Rose Narayan Referred By: ? FERDINAND MICHAEL MD Service(s) Provided URETRO - Retroperitoneal Complete - 002 [id number] ? [id number] Indications History of kidney stones Right Kidney Size (cm) ?L: ??10.3 Cortical Thickness: ?Normal Cortical Echogenicity: ?? Normal Hydronephrosis: ?No sonogr aphic evidence Comment: ?Tiny upper and lower pole renal calculi, non ? obstructing Left Kidney Size (cm) ?L: ??10.1 Cortical Thickness: ?Normal Cortical Echogenicity: ?? Normal Hydronephrosis: ?No sonogr aphic evidence Urinary Bladder Pre-void (cm) ? L: ??11.6 ?A P: ??8.1 ? TV: ??10.5 Vol (ml): ?516.6 Comment: ?Distended bladder, normal contour Impression Ultrasound - ??Retroperitoneal Complete - Summary Left Tiny upper and lower pole renal ca lculi, non obstructing similar to prior I ??viewed the images and agree with kristi christianson above interpretation. Thank you for allowing us to participat e in the care of JESSICA GTZ. Please do not hesitate to call if you have any questions. ? Rose Tineo MD Electronically Signed Final Report ?? 05:16 pm Procedure Note Rose Tineo MD - 07/08/2012Formattin g of this note might be different from the original. Renal (Signed Final 07/08/2012 05:16 pm) Patient Info ID: [id number] : [birth year] (46 yrs ) Name: JESSICA GTZ Visit Date: 07/08 03:45 pm Performed By Performed By: Genie Burciaga RDMS Attending: Rose Tineo MD. Referred By: FERDINAND MICHAEL MD Service(s) Provided URETRO - Retroperitoneal Complete - [facility] [id number] Indications History of kidney stones Right Kidney Size (cm) L: 10.3 Cortical Thickness: Normal Cortical Echogenicity: Normal Hydronephrosis: No sonographic evidence Comment: Tiny upper and lower pole jluis l calculi, non obstructing Left Kidney Size (cm) L: 10.1 Cortical Thickness: Normal Cortical Echogenicity: Normal Hydronephrosis: No sonographic evidence Urinary Bladder Pre-void (cm) L: 11.6 AP: 8.1 TV: 10.5 Vol (ml): 516.6 Comment: Distended bladder, normal cont our Impression Ultrasound - Retroperitoneal Complete - Summary Left Tiny upper and lower pole renal ca lculi, non obstructing similar to prior I viewed the images and agree with the above interpretation. Thank you for allowing us to participat e in the care of JESSICA GTZ. Please do not hesitate to call if you have any questions. Rose Tineo MD Electronically Signed Final Report 07/08 05:16 pm Ferdinand Michael Jr., MD IMG US GEN ORDERABLES documented in this encounter Visit Diagnoses Diagnosis Nephrolithiasis - Primary Calculus of kidney Nephrolithiasis Calculus of kidney documented in this encounter Care Teams Graphic Technician Relationship Specialty Start Date End Date Monica Garcia MD PCP - General 07/18/10 03/05/12 [address] [place] [address] documented as of this encounter
--- OUTSIDE RECORDS SUMMARY | 2022-03-23 02:29 | XMS_ITS | Encounter Summary ---
:1965 Author Organization [facility] [place] [address] Care Team Providers Name Role Phone Monica Garcia MD Primary Care Provider Encounter Details Date Type Department Care Team Description 07/25/2011 Hospital Encounter XRay at [facility] [place] Nephrolithiasis [address] [place] [address] [place] [phone] Social History Tobacco Use Types Packs/Day [...] HCL (SERTRALINE 0 0 03/31/2013 ORAL) Evening Issue Oil 500 0 08/24/2010 01/24/2015 mg Cap [...] Description 04/10/2022 Appointment Radiology Luis Michael MD [facility] UROLOGY DEPT. [place], [place] [address] (Rahul rk) 04/10/2022 Office Visit Urology Luis Michael MD [facility] UROLOGY DEPT. [place], [place] [address] (Wo rk) 07/13/2022 Appointment Radiology Maile Hinojosa MD [facility] ENDOCRINOLOGY [place], [place] [address] (Rahul ascencio) 07/13/2022 Office Visit Endocrinology Maile Hinojosa MD [facility] ENDOCRINOLOGY [place] 0[address] (Wo rk) documented as of this encounter Procedures Procedure Name Priority Date/Time Associated Diagnosis Comme nts XR ABDOMEN 1 VIEW Routine 07/25/2011 9:16 AM Calculus of kidne y Results for this EST procedure are i n the results section. documented in this encounter Results XR ABDOMEN 1 VIEW (07/25/2011 9:16 AM EST) Anatomical Region Laterality Modality Abdomen N/A Radiographic Imaging Specimen (Source) Anatomical Collection Method Collection Time Re ceived Time Location / / Volume Laterality 07/25/2011 9:16 AM EST Narrative 07/25/2011 3:04 PM EST EXAMINATION: KUB HISTORY: Nephrolithiasis. DESCRIPTION: Gas and stool in colon over lie the lower pole of the right kidney decreasing the sensitivity for detecting right lower pole renal stones. No urinary tract stones are seen. Bowel gas pattern is normal. Procedure Note Weston Martin MD - 07/25/2011Format ting of this note might be different from the original. EXAMINATION: KUB HISTORY: Nephrolithiasis. DESCRIPTION: Gas and stool in colon over lie the lower pole of the right kidney decreasing the sensitivity for detecting right lower pole renal stones. No urinary tract stones are seen. Bowel gas pattern is normal. Luis Michael Jr., MD IMG DX ORDERABLES documented in this encounter Visit Diagnoses Diagnosis Nephrolithiasis Calculus of kidney documented in this encounter Care Teams Biology Faculty Member Relationship Specialty Start Date End Date Monica Garcia MD PCP - General 07/18/10 03/05/12 [address] [place] [address] documented as of this encounter
--- OUTSIDE RECORDS SUMMARY | 2022-03-23 02:29 | XMS_ITS | Encounter Summary ---
:1965 Author Organization [facility] [place] [address] Care Team Providers Name Role Phone Monica Garcia MD Primary Care Provider Reason for Visit Reason Comments Post Op Encounter Details Date Type Department Care Team Description 12/07/2010 Follow[place]Up Urology [place] [facility] [place] Chetna Waddell Nephrolithiasis (Primary [facility] [address]) [place] [address] UROLOGY DEPT. [phone] [place], [place] [address] Social History Tobacco Use Types [...] Sign Reading Time Taken Comments Blood Pressure 108/69 12/07/2010 4:38 PM EDT Pulse 85 12/07/2010 4:38 PM EDT Temperature - - Respiratory Rate - - Oxygen Saturation - - Inhaled Oxygen Concentration - - Weight 64.9 kg (143 lb) 12/07/2010 4:38 PM EDT Height - - Body Mass Index 21.12 12/07/2010 2:03 PM EDT documented in this encounter Progress Notes Chetna Waddell PA - 12/07/2010 5:05 PM EDT Chief Complaint: Urolithiasis Ms. Jessica Gtz is a pleasant 44 year old woman with a history of urolithiasis, s/p SWL in nd more recent left ureterscopy in 07/2010, who returns for routine follow-up. She recovered uneventfully from her prior surgery with the exception of pain after her stent removal. This improved with Dilaudid. Her left flank pain has resolved. She denies gross hematuria, irritative voiding symptoms, nausea, vomiting, fever, or chills. She has not passed any stones in the interval. Her stone analysis showed 90% calcium oxalate dehydrate and 10% calcium phosphate. Review of systems: Reviewed with no new symptoms since her last visit. Past medical history: migraines, GERD, urolithiasis, ankle injury/pain Past surgical history: SWL Family history: no history of urolithiasis Social History: no tobacco history; no alcohol use Dietary History: 3-4 liters fluid intake/day; low sodium intake; moderate purine/animal protein intake; moderate oxalate intake; moderate dairy intake. Physical Exam: General: She is sitting up comfortably, in no acute distress and no discomfort. Alert and oriented x3, pleasant and cooperative to exam, without undue anxiety, normal affect and mood. Lymphatic: no palpable cervical or supraclavicular lymphadenopathy. Abdomen: soft and NTND without masses or HSM. No rebound or guarding. No CVA tenderness to percussion. Her bladder is not palpably distended. Extremities: well perfused without pedal edema. Imaging Studies: Renal U/S: There is no evidence of stones or hydronephrosis Impression: Nephrolithiasis, s/p left ureterscopy Plan: We reviewed the results of her U/S today showing no evidence of stones or hydronephrosis. We reviewed a general stone prevention diet to include hydration with water for 2 liters of urine per day, and following a diet that is low in sodium (2000 mg), animal protein, and oxalates (list given). Plan on f/u in 6 months with renal U/S prior to assess for new stone formation, sooner with stone symptoms or new concerns. Chetna Waddell PA-C Subjective: Patient ID: Jessica Gtz is a 45 y.o. female. HPI Review of Systems Objective: Physical Exam Assessment and Plan: No problem-specific visit notes found for this encounter. documented in this encounter Plan of Treatment Upcoming Encounters Date Type Specialty Care Team Description 04/10/2022 Appointment Radiology Luis Michael MD [facility] UROLOGY DEPT. [place], [place] [address] (Wo rk) 04/10/2022 Office Visit Urology Luis Michael MD [facility] DR UROLOGY DEPT. [place], [place] [address] (Wo rk) 07/13/2022 Appointment Radiology Maile Hinojosa MD [facility] ENDOCRINOLOGY [place], [place] [address] (Wo rk) 07/13/2022 Office Visit Endocrinology Maile Hinojosa MD [facility] ENDOCRINOLOGY [place], [place] [address] (Wo rk) documented as of this encounter Results US retroperitoneal complete (07/09/2011 1:31 PM EST) Anatomical Region Laterality Modality Abdomen Ultrasound Specimen (Source) Anatomical Collection Method Collection Time Re ceived Time Location / / Volume Laterality 07/09/2011 1:31 PM EST Narrative 07/09/2011 1:47 PM EST ? Renal Rep ort ? (Signed Final 07/09/2011 01 :47 pm) Patient Info ID: ? [id number] ? : ??[birth year] (45 yrs) Name: ? JESSICA GTZ ? Visit Date: 07/09/2011 01:28 pm Performed By Performed By: ?Tiara [facility], [place]aphne Associate: ? Luciano GILL, Sumanth Ruiz Attending: ? Luna GILL, Genie Ruiz Referred By: ? CIERA ARMENDARIZ Accession#: ?[id number] Service(s) Provided URETRO - Retroperitoneal Complete - 002 [id number] ? [id number] Indications H/o nephrolithiasis, assess for new sto yesica Comparison Renal and bladder ultrasound, 12/07/10. Right Kidney Size (cm) ?L: ??10.57 Cortical Thickness: ?Normal Cortical Echogenicity: ?? Normal Hydronephrosis: ?No sonogr aphic evidence Left Kidney Size (cm) ?L: ??1121 Cortical Thickness: ?Normal Cortical Echogenicity: ?? Normal Hydronephrosis: ?No sonogr aphic evidence Comment: ?5 mm stone lower pole Urinary Bladder Pre-void (cm) ? L: ??12.14 ? AP : ??8.92 ?TV: ??10.32 Vol (ml): ?585.1 Comment: ?Normal. Impression Ultrasound - ??Retroperitoneal Complete - Summary 1. ??Non-obstructing 5mm left lower kim e calculus, not seen on prior. ??Kidneys are otherwise normal. 2. ??Normal bladder. I ??viewed the images and agree with kristi christianson above interpretation. Thank you for allowing us to participat e in the care of JESSICA GTZ. Please do not hesitate to call if you have any questions. ?Genie lopez MD Electronically Signed Final Report ?? 01:47 pm Film and interpretation reviewed by the attending Procedure Note Genie Carrasco MD - 07/09/2011Formatt ing of this note might be different from the original. Renal Report (Signed Final 07/09/2011 01:47 pm) Patient Info ID: [id number] : [birth year] (45 yrs ) Name: JESSICA GTZ Visit Date: 07/09 01:28 pm Performed By Performed By: Daphne Menjivar RDMS Associate: Luciano GILL, Sumanth Beltran Attending: Genie Carrasco MD Referred By: CIERA ARMENDARIZ Service(s) Provided URETRO - Retroperitoneal Complete - [phone] [id number] Indications H/o nephrolithiasis, assess for new sto yesica Comparison Renal and bladder ultrasound, 12/07/10. Right Kidney Size (cm) L: 10.57 Cortical Thickness: Normal Cortical Echogenicity: Normal Hydronephrosis: No sonographic evidence Left Kidney Size (cm) L: 11.21 Cortical Thickness: Normal Cortical Echogenicity: Normal Hydronephrosis: No sonographic evidence Comment: 5 mm stone lower pole Urinary Bladder Pre-void (cm) L: 12.14 AP: 8.92 TV: 10. 32 Vol (ml): 585.1 Comment: Normal. Impression Ultrasound - Retroperitoneal Complete - Summary 1. Non-obstructing 5mm left lower pole calculus, not seen on prior. Kidneys are otherwise no rmal. 2. Normal bladder. I viewed the images and agree with the above interpretation. Thank you for allowing us to participat e in the care of JESSICA GTZ. Please do not hesitate to call if you have any questions. Genie Carrasco MD Electronically Signed Final Report 07/09 01:47 pm Film and interpretation reviewed by the attending Lucy Rueda MD IMG US GEN ORDERABLES documented in this encounter Visit Diagnoses Diagnosis Nephrolithiasis - Primary Calculus of kidney Nephrolithiasis Calculus of kidney documented in this encounter Care Teams Corporate Associate Relationship Specialty Start Date End Date Monica Garcia MD PCP - General 07/18/10 03/05/12 [address] [place] [address] documented as of this encounter
--- OUTSIDE RECORDS SUMMARY | 2022-03-23 02:29 | XMS_ITS | Encounter Summary ---
:1965 Author Organization [facility] [place] [address] Care Team Providers Name Role Phone Monica Garcia MD Primary Care Provider Encounter Details Date Type Department Care Team Description 07/15/2011 Orders Only Urology at [facility] [place] Ilya Bermudez, Nephrolithiasis (Primary [facility] SACHA Zuniga Dx) [place], [place] CENTER [address] UROLOGY DEPT. [phone] [place] [id number] Social History Tobacco Use Types Packs/Day Years [...] documented as of this encounter Progress Notes Nadia Stapleton, SACHA - 07/15/2011 8:48 PM EST Pt considering surgical options for her 5 mm stone. Will set her up with KUB and discussion of surgical options with Dr. Michael. documented in this encounter Plan of Treatment Upcoming Encounters Date Type Specialty Care Team Description 04/10/2022 Appointment Radiology Luis Michael MD [facility] UROLOGY DEPT. [place], [place] [address] (Wo rk) 04/10/2022 Office Visit Urology Luis Michael MD [facility] UROLOGY DEPT. [place], [place] [address] (Wo rk) 07/13/2022 Appointment Radiology Maile Hinojosa MD [facility] ENDOCRINOLOGY [place], [place] [address] (Wo rk) 07/13/2022 Office Visit Endocrinology Maile Hinojosa MD [facility] ENDOCRINOLOGY [place], [place] [address] (Wo rk) documented as of this encounter Visit Diagnoses Diagnosis Nephrolithiasis - Primary Calculus of kidney documented in this encounter Care Teams Railroad Car Cleaner Relationship Specialty Start Date End Date Monica Garcia MD PCP - General 07/18/10 03/05/12 [address] [place] [address] documented as of this encounter
--- OUTSIDE RECORDS SUMMARY | 2022-03-23 02:29 | XMS_ITS | Encounter Summary ---
:1965 Author Organization [facility] [place] [address] Care Team Providers Name Role Phone None Primary Care Provider Unavailable Reason for Visit Reason Comments Follow-up f/u ovarian cyst/ annual Encounter Details Date Type Department Care Team Description 03/06/2012 Follow-Up Obstetrics and CLINIC, DR ESPINO Pap smear for cervical cancer screening (Primary Dx); Gynecology at [facility] Ramses Birch MD [facility] OBSTETRICS & [place] [address] Perimenopause; [place] [address] Social History Tobacco Use Types Packs/Day [...] Sign Reading Time Taken Comments Blood Pressure 100/64 03/06/2012 3:49 PM EDT Pulse - - Temperature - - Respiratory Rate - - Oxygen Saturation - - Inhaled Oxygen Concentration - - Weight 66.2 kg (146 lb) 03/06/2012 3:49 PM EDT Height 172.5 cm (5' 7.91) 03/06/2012 3:49 PM EDT Body Mass Index 22.26 03/06/2012 3:49 PM EDT documented in this encounter Progress Notes Aylin Masters MD - 03/10/2012 7:38 AM EDT I was the attending physician supervising the resident in the above care. We discussed her assessment and plan at the time of her visit and I agree with Dr. Birch's documentation. Ramses Birch - 03/06/2012 4:12 PM EDT GUEST SERVICES MANAGER Comprehensive History and Physical Exam Stacy Albright [id number] 1965 Service Date: 03/06/2012 ID/CC: 46 y.o. year old woman here for annual visit Issues she maddi like to discuss today: -daily vaginal bleeding on OCPs -grumpy, hair loss, hot flashes, night sweats -labial changes 'shrank and sore,' painful on outside with intercourse Gynecologic hx: menarche 11, menses q28d X4 days with 1d heavy, used to have moliminal symptoms but not now (see hx below) One abnormal PAP as teenager s/p cryo, normal since. H/o chlamydia in 20s treated, no issues since. Sexually active with only Two years ago started on hormonal patch for perimenopausal symptoms including mood change, hair loss, hot flashes, night sweats. This patch gave resolution to her symptoms. However she still had some hair loss so then increased dose. She then started having irregular bleeding, dysmenorrhea. Would havebleeding for an entire month at a time. Then developed an ovarian cyst found on CT done for evaluation of nephrolithiasis. At that time the patch was discontinued and was started on continuous OCPs to stop ovulation and menses. She has been on continuous oral combined contraceptives (ovcon with 35mg EE) for 6 months. She has constant spotting or light bleeding/discharge. Some days she has to wear pad. Every day she has to wear at least a panty liner. She has patient waiting for this to resolve but now would like a new solution. She also has had some return of her perimenopausal symptoms discussed above. After detailed review they are better then they were prior to any treatment. She also reports that since she stopped using the patches her left labia 'shrank and is sore.' She says this is relieved by vaseline application. It is painful on the outside with intercourse. She alsohas some vaginal dryness and intercourse is uncomfortable. Problem List: Patient Active Problem List Diagnoses ??? Asthma ??? Nephrolithiasis ??? Raynaud's disease ??? Migraines ??? Perimenopause Past MICROBIOLOGY MANAGER History: Pregnancies: OB History Grav Para Term Abortions TAB SAB Ect Mult Living 4 3 3 0 1 3 Term SVDX3 Past Medical History: Past Medical History Diagnosis Date ??? Asthma ??? Raynaud's disease ??? History of nephrolithiasis ??? Migraines ??? Abnormal glandular Papanicolaou smear of cervix age 15 ??? Vaginal infection PID at 15 Past Surgical History: Past Surgical History Procedure Date ??? [facility] Procedure Date: 01/16/2008 ??? Lithotripsy Family History: No endometrial, ovarian or cervical cancer Maternal aunts X2 lymphoma Family History Problem Relation Age of Onset ??? Osteoporosis Mother ??? Breast Cancer Paternal Grandmother 45 ??? Colon Cancer Neg Hx Social History: History Social History ??? Marital Status: Spouse Name: N/A Number of Children: N/A ??? Years of Education: N/A Occupational History ??? Not on file. Social History Main Topics ??? Smoking status: Never Smoker ??? Smokeless tobacco: Not on file ??? Alcohol Use: Yes occasionally social ??? Drug Use: No ??? Sexually Active: Yes -- Male partner(s) Control/ Protection: Surgical Other Topics Concern ??? Not on file Social History Narrative ??? No narrative on file Denies regular alcohol use Personal safety Domestic violence/safety issues at home: Denies Guns: Yes (guns are hidden at home - we discussed recommendation for use of gun safes/gun locks) Seatbelts: Always Smoke detectors: Yes Health Maintenance Exercise/diet: Diabetic low salt low fat diet for . Low oxalate for her nephrolithiasis. Walks at least 3 Estimated calcium intake: drinks milk daily, takes MVI Vitamin D: supplements daily during the winter Discussed recommended doses of 800IU vitamin D and 1000mg calcium daily Immunizations and Screening Flu: up to date pneumococcus: up to date Tetanus/Pertussis: up to date ALLERGIES: Grass pollen-bermuda, standard MEDICATIONS: Current outpatient prescriptions ordered prior to encounter Medication Sig Dispense Refill ??? MOMETASONE FUROATE (NASONEX NASL) by Nasal route daily. ??? fluticasone-salmeterol (ADVAIR) 500-50 mcg/dose diskus inhaler Inhale 1 puff into the lungs 2 times daily. ??? norethindrone-ethinyl estradiol (OVCON-35, 28,) 0.4-35 mg-mcg per tablet Take 1 tablet by mouth daily. Please throw out the 7 placebo pills and start a new pack to take packs continuously. 84 tablet 4 ??? TRIAMCINOLONE ACETONIDE (NASACORT AQ NASL) by Nasal route. ??? predniSONE (DELTASONE) 20 mg tablet Take 25 mg by mouth daily. ??? multivitamin (THERAGRAN) tablet Take 1 tablet by mouth daily. ??? fexofenadine (JEREL) 60 mg tablet Take by mouth daily. ??? montelukast (SINGULAIR) 10 mg tablet Take 10 mg by mouth every morning. ??? SERTRALINE HCL (SERTRALINE ORAL) ??? Evening [employer] Oil 500 mg Cap ??? albuterol (ACCUNEB) 0.63 mg/3 mL nebulizer solution ??? FOLIC ACID/VITAMIN B COMP W-C (B-COMPLEX WITH VITAMIN C ORAL) ??? SUMATRIPTAN SUCCINATE (IMITREX ORAL) ??? tacrolimus (PROTOPIC) 0.1 % ointment 1 Appl(s) Top Twice daily ??? ERGOCALCIFEROL, VITAMIN D2, (VITAMIN D ORAL) ??? KETOCONAZOLE (NIZORAL TOP) REVIEW OF SYSTEMS Denies f/c/cp/sob/palpiations/cough/abd pain/n/v/d/dysuria (+)constipation - uses high fiber for this PHYSICAL EXAM VITAL SIGNS Filed Vitals: 03/06/12 1549 BP: 100/64 Height: 172.5 cm (5' 7.91) Weight: 66.225 kg (146 lb) Please see PE section below for non-coat check attendant exam Female public bath attendant present for breast and pelvic exam Breasts: breasts appear normal, no suspicious masses, no skin or nipple changes or axillary nodes, symmetric fibrous changes in both upper outer quadrants. Pelvic exam: VULVA: normal appearing vulva with no masses, tenderness or lesions, right labia majora rodriguez then left, some obliteration of posterior aspect of left labia minor VAGINA: normal appearing vagina with normal color and discharge, no lesions, CERVIX: normal appearing cervix without discharge or lesions, ectropion present at 12 oclock, cervical motion tenderness absent, PAP gathered with broom and endocerevical brush, UTERUS: uterus is normal size, shape, consistency and nontender, anteverted, mobile, ADNEXA: normal adnexa in size, nontender and no masses, RECTAL: normal rectal, no masses, external hemorrhoids non-thrombosed. Review of DEXA scan 02/13/2011 reveals presumptive diagnosis of osteoporosis with limitation that DEXA not routinely done in women younger then 50yo. (Note that I see no documentation in the record thatthis was previously reviewed with the patient.) ASSESSMENT: 46 y.o. year old perimenopausal female here for annual with physical exam. Afterdiscussion with patient of options of treatment of current bleeding profile and perimenopausal symptoms agreed to return to the original patch that she was on. She was happy with both her bleeding profile and improved perimenopausal symptoms and would be satisfied with a return to this. Discussed first stopping OCPs and experiencing withdrawal bleed then reinitiating patch. No vulvovaginal pathology on exam which is otherwise benign. Premature osteoporosis is concerning and may require treatment. Given history of nephrolithiasis as well this could represent hyperparathyroidism. PLAN (include teaching and counseling): -Discussed exercise and nutrition recommendations including vitamin D/calcium requirements -Pap taken. Results are not available for up to several weeks; results will be mailed to patient. -script for estradiol-levonorgestrel (CLIMARA PRO) 0.045-0.015 mg/24 hr sent to patients pharmacy. Will start >3 days after discontinuation of current Ovcon prescription with withdrawal bleed -RTC in 3 months, or call prn earlier for hormone patch surveillance -RTC again in 1 year for next annual including clinical breast exam. PAP will not be due. -Discussed that she will need mammogram, colonoscopy, lipid screening at age 48 -Pt referred to Dr. Hall for further evaluation and treatment of DEXA finding of Osteoporosis, possible hyperparathyroidism This case discussed with Dr. Masters ----below added by eD - please see PE section for non-coat check attendant exam Subjective: Patient ID: Stacy Albright is a 46 y.o. female. HPI Review of Systems Objective: Physical Exam Constitutional: She is oriented to person, place, and time. She appears well- developed and well-nourished. No distress. HENT: Head: Normocephalic and atraumatic. Neck: No tracheal deviation present. No thyromegaly present. Cardiovascular: Normal rate, regular rhythm, normal heart sounds and intact distal pulses. Exam reveals no gallop and no friction rub. No murmur heard. Pulmonary/Chest: Effort normal and breath sounds normal. No respiratory distress. She has no wheezes. She has no rales. Abdominal: Soft. Bowel sounds are normal. She exhibits no distension. No tenderness. Genitourinary: Pelvic exam was performed with patient supine. Musculoskeletal: She exhibits no edema and no tenderness. Neurological: She is alert and oriented to person, place, and time. Skin: Skin is warm and dry. No rash noted. She is not diaphoretic. No erythema. Psychiatric: She has a normal mood and affect. Her behavior is normal. Assessment and Plan: No problem-specific visit notes found for this encounter. documented in this encounter Plan of Treatment Upcoming Encounters Date Type Specialty Care Team Description 04/10/2022 Appointment Radiology Luis Michael MD [facility] UROLOGY DEPT. [place], [place] [address] (Wo rk) 04/10/2022 Office Visit Urology Luis Michael MD [facility] UROLOGY DEPT. [place], [place] [address] (Wo rk) 07/13/2022 Appointment Radiology Maile Hinojosa MD [facility] ENDOCRINOLOGY [place], [place] [address] (Wo rk) 07/13/2022 Office Visit Endocrinology Maile Hinojosa MD [facility] ENDOCRINOLOGY [place], [place] [address] (Wo rk) documented as of this encounter Procedures Procedure Name Priority Date/Time Associated Comments Diagnosis CYTOPATHOLOGY Routine 03/06/2012 5:00 PM Pap smear for Results for this GYNECOLOGICAL EDT cervical cancer procedure a re in screening the results section. documented in this encounter Results Cytopathology Gynecological (03/06/2012 5:00 PM EDT) Specimen Anatomical Collection Method Collection Time Receive d Time (Source) Location / / Volume Laterality AP Specimen 03/06/2012 5:00 PM 2 5:00 EDT PM EDT [facility]ative [facility] - 03/06/2012 5:00 PM E DT Specimen requisition ordered. ??Separate Pathology report to follow Aylin Masters MD PATHOLOGY/CYTOLOGY ORDERABLE S Performing Organization Address City/State/[place] [address] [facility] documented in this encounter Visit Diagnoses Diagnosis Pap smear for cervical cancer screening - Primary Screening for malignant neoplasm of the cervix Perimenopause Symptomatic menopausal or female climact [place] Osteoporosis Osteoporosis, unspecified documented in this encounter Care Teams Plastic And Reconstructive Surgeon Relationship Specialty Start Date End Date None PCP - General 03/06/12 01/05/13 None documented as of this encounter
--- OUTSIDE RECORDS SUMMARY | 2022-03-23 02:29 | XMS_ITS | Encounter Summary ---
:1965 Author Organization [facility] [address] Care Team Providers Name Role Phone None Primary Care Provider Unavailable Reason for Visit Reason Comments Osteoporosis Encounter Details Date Type Department Care Team Description 03/25/2012 Office Visit Endocrinology at [facility] Cuate Pearl MD Osteoporosis (Primary [facility]) [facility] [place] [address] ENDOCRINOLOGY [phone] [place], [place] [address] Social History Tobacco Use Types [...] Sign Reading Time Taken Comments Blood Pressure 120/75 03/25/2012 1:45 PM EDT Pulse 80 03/25/2012 1:45 PM EDT Temperature - - Respiratory Rate 18 03/25/2012 1:45 PM EDT Oxygen Saturation 100% 03/25/2012 1:45 PM EDT Inhaled Oxygen Concentration - - Weight 66.9 kg (147 lb 6.4 oz) 03/25/2012 1:45 PM EDT Height 173.2 cm (5' 8.2) 03/25/2012 1:45 PM EDT Body Mass Index 22.28 03/25/2012 1:45 PM EDT documented in this encounter Progress Notes Cuate Hall MD - 03/26/2012 8:46 AM EDT I interviewed and examined patientt along with Dr. Romero and agree with her plans and recommendations. Trino Hall MD Jennifer Romero MD - 03/25/2012 2:12 PM EDT Endocrinology Consultation Date of Visit:03/24/2012 Patient: Name: Stacy Albright : 1965 PCP: None Stacy Albright was seen in consultation in the Endocrine clinic at the request of Dr. Birch for the management of osteoporosis and to rule out hyperparathyroidism as patient has recurrent kidney stones. Patient's previous record as are the lab results are reviewed. Brief History of Present Illness: Stacy Albright is a very pleasant 46 y.o. year old female evaluated by GUZZLER BUILDER and found to have osteoporosis on Dexa [...] Femoral neck T-score = -2.5,total neck 1.8 ROS: Constitutional: Fatigue, recent weight gain with prednisone,hot flashes Endocrine: sweating or flushing. No galactorrhea or breast [...] Outpatient Meds: Estradiol-levonorgestrel 0.045/0.015mg 24 hr patch Prednisone 25 mg daily Ergocalciferol D2 Calcium Sertraline Advair Nasonex Mometasone Allergy: Grass pollen-[place] Social with Kids Never smoked.No alcohol Use Sexually active. PE: BP 120/75 HR 80 RR 18 HT 173.2 CM WT 147 lbs Appearance: Patient is very pleasant 46 y.o. years old female, clinically euthyroid, not [...] no proximal muscle weakness, reflexes were normal Labs 03/2008 PTH 22 Ca 9.2 Ionised Ca 1.29 H TSH 2.03 FSH 16.7 LH 8.6 24 HOUR urine calcium 03/02 242 09/02 378 Assessment: Stacy Albright is a 46 y.o. year old female diagnosed with osteoporosis on DEXA scan on 01/2011. Herosteoporosis is likely due to her chronic steroid use.Her blood work done in 2007 makes hyperparathyroidism less likely. By FRAX analysis, patient's 10-yr probability for major osteoporotic fracture was 8.3% and hip fracture 1.9%. Patient has low risk for fracture based on her FRAX score and does not need treatment with a bisphosphonate at present.Patient is on estrogen patch for her perimenopausal symptoms which should also protect her from 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 Recommendation: Diet-Increase dietary calcium intake like milk and yogurt . Recommend total Calcium (Dietary+supplement) of 1200-1500mg and vitamin [id number] IU daily.Patient should not exceed 1500 mg of calcium daily given her history of kidney stones. Continue weight bearing exercises for 30 mins at least 3 times a week. Lab:Check 25 hydroxy vitamin D,calcuim and PTH to exclude other secondary causes of 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Increased levels of PTH with low to normal calcium can indicate decreased absorption of calcium X-ray/Imaging studies: follow-up DEXA scan after 1 year Follow up with DEXA scan in 1 year interval to assess the BMD. We have reviewed our plan outlined above with the patient and patient verbalized understanding and is agreeable with this management. All questions were answered and most of the time was spent on counseling about bone conditions, medications and Ca/D supplement including pros and cons of starting medication, the diagnostic and therapeutic decisions, and coordination of care. Thank you for allowing me to participate in the care of the patient Case discussed with Dr Isabel Romero MD Endocrinology Fellow [id number] documented in this encounter Plan of Treatment Upcoming Encounters Date Type Specialty Care Team Description 04/10/2022 Appointment Radiology Luis Michael MD [facility] UROLOGY DEPT. [place], [place] [address] (Wo rk) 04/10/2022 Office Visit Urology Luis Michael MD [facility] UROLOGY DEPT. [place], [place] [address] (Wo rk) 07/13/2022 Appointment Radiology Maile Hinojosa MD [facility] ENDOCRINOLOGY [place], [place] [address] (Wo rk) 07/13/2022 Office Visit Endocrinology Maile Hinojosa MD [facility] ENDOCRINOLOGY [place], [place] [address] (Wo rk) documented as of this encounter Procedures Procedure Name Priority Date/Time Associated Diagnosis Comme nts PTH Routine 03/25/2012 2:53 PM Osteoporosis Results f or this EDT procedure are i n the results section. VITAMIN D, Routine 03/25/2012 2:53 PM Osteoporosis Results f or this 25-HYDROXY EDT procedure are i n the results section. CALCIUM Routine 03/25/2012 2:53 PM Osteoporosis Results f or this EDT procedure are i n the results section. documented in this encounter Results Calcium (03/25/2012 2:53 PM EDT) P athologist Signature Calcium 9.0 8.5 - 10.5 [facility] mg/dL [facility] Specimen Anatomical Collection Method Collection Time Receive d Time (Source) Location / / Volume Laterality Blood specimen 03/25/2012 2:53 PM 012 3:18 (specimen) EDT PM EDT Resulting Agency Comment Spec In Lab Cuate Hall MD CHEMISTRY ORDERABLES Performing Organization Address City/State/ZIP [place] [address] [facility] PTH (03/25/2012 2:53 PM EDT) athologist Signature PTH 24 15 - 65 CERNER pg/mL [facility] Specimen Anatomical Collection Method Collection Time Receive d Time (Source) Location / / Volume Laterality Blood specimen 03/25/2012 2:53 PM 012 3:18 (specimen) EDT PM EDT Resulting Agency Comment Spec In Lab Cuate Hall MD CHEMISTRY ORDERABLES Performing Organization Address City/State/ZIP [place] [address] [facility]EN[facility] VIT D Total Evaluation (03/25/2012 2:53 PM EDT) athologist Signature 25-OH Vit D 46 30 - 100 CERNER Total ng/mL [facility] Comment: Deficient <10 ng/mL Insufficient 10 to [...] total Vitamin D c oncentration is reported. Please note, the performing location for this test has changed. ??As of 10/02/2011 the Vitamin D Total, 25 [place] xy assays are being analyzed by the [facility] Chemistry Laboratory. ??There is NO CHANGE in units. ??Please contact the chemistry laboratory at [phone] with kentrell laguerre. Specimen Anatomical Collection Method Collection Time Receive d Time (Source) Location / / Volume Laterality Blood specimen 03/25/2012 2:53 PM 012 3:18 (specimen) EDT PM EDT Resulting Agency Comment Spec In Lab Cuate Hall MD CHEMISTRY ORDERABLES Performing Organization Address City/State/ZIP Code Phon e Number [place] [phone] [facility] [address] [facility] documented in this encounter Visit Diagnoses Diagnosis Osteoporosis - Primary Osteoporosis, unspecified documented in this encounter Care Teams Supervisor Home Restoration Service Relationship Specialty Start Date End Date None PCP - General 03/06/12 01/05/13 None documented as of this encounter
--- OUTSIDE RECORDS SUMMARY | 2022-03-23 02:29 | XMS_ITS | Encounter Summary ---
:1965 Author Organization [facility] [place] [address] Care Team Providers Name Role Phone Monica Garcia MD Primary Care Provider Encounter Details Date Type Department Care Team Description 07/25/2010 Procedure visit [place] [address] Social History Tobacco Use Types Packs/Day Years Used Date Never Assessed Sex Assigned at Date Recorded Female 01/29/2022 12:45 PM EDT documented as of this encounter Plan of Treatment Upcoming Encounters Date Type Specialty Care Team Description 04/10/2022 Appointment Radiology Luis Michael MD [facility] UROLOGY DEPT. [place], [place] [address] (Rahul ascencio) 04/10/2022 Office Visit Urology Luis Michael MD [facility] UROLOGY DEPT. [place], [place] [address] (Rahul ascencio) 07/13/2022 Appointment Radiology Maile Hinojosa MD [facility] ENDOCRINOLOGY [place], [place] [address] (Rahul ascencio) 07/13/2022 Office Visit Endocrinology Maile Hinojosa MD [facility] ENDOCRINOLOGY [place], [place] [address] (Wo rk) documented as of this encounter Visit Diagnoses Not on filedocumented in this encounter Care Teams Roofer Gypsum Relationship Specialty Start Date End Date Monica Garcia MD PCP - General 07/18/10 03/05/12 [address] [place] [address] documented as of this encounter
--- OUTSIDE RECORDS SUMMARY | 2022-03-23 02:29 | XMS_ITS | Encounter Summary ---
:1965 Author Organization [facility] [place] [address] Care Team Providers Name Role Phone Monica Garcia MD Primary Care Provider Encounter Details Date Type Department Care Team Description 07/09/2011 Hospital Encounter [place] [facility] [place] [address] Social History Tobacco Use Types Packs/Day [...] 0.63 0 08/24/2010 mg/3 mL nebulizer solution predniSONE (DELTASONE) 20 Take 25 mg by mouth 0 07/03/2012 mg tablet daily. estradiol-norethindrone Place 1 patch onto 8 patch 12 11/2412/07/2011 (COMBIPATCH) 0.05-0.14 the skin twice a mg/24 hrIndications: week. Perimenopause fexofenadine (JEREL) 60 Take by mouth 0 07/03/2012 mg tablet daily. SERTRALINE HCL (SERTRALINE 0 0 03/31/2013 ORAL) azelastine (ASTELIN) 137 0 08/24/2010 07/25/2011 mcg nasal spray Evening [place] Oil 500 0 08/24/2010 01/24/2015 mg Cap [...] Description 04/10/2022 Appointment Radiology Luis Michael MD [facility] UROLOGY DEPT. [place], [place] [address] (Rahul rk) 04/10/2022 Office Visit Urology Luis Michael MD [facility] UROLOGY DEPT. [place], [place] [address] (Wo rk) 07/13/2022 Appointment Radiology Maile Hinojosa MD [facility] ENDOCRINOLOGY [place], [place] [address] (Rahul ascencio) 07/13/2022 Office Visit Endocrinology Maile Hinojosa MD [facility] DR ENDOCRINOLOGY [place], [place] [address] (Wo rk) documented as of this encounter Procedures Procedure Name Priority Date/Time Associated Diagnosis Comme nts US RETROPERITONEAL Routine 07/09/2011 1:31 Nephrolithiasis Res ults for this COMPLETE PM EST procedure are i n the results section. documented in this encounter Results US retroperitoneal complete (07/09/2011 1:31 PM EST) Anatomical Region Laterality Modality Abdomen Ultrasound Specimen (Source) Anatomical Collection Method Collection Time Re ceived Time Location / / Volume Laterality 07/09/2011 1:31 PM EST Narrative 07/09/2011 1:47 PM EST ? Renal Rep ort ? (Signed Final 07/09/2011 01 :47 pm) Patient Info ID: ? [id number] ? : [birth year] (45 yrs) Name: ? JESSICA GTZ ? Visit Date: 07/09/2011 01:28 pm Performed By Performed By: ?Daphne Menjivar RDMS Associate: ? Luciano GILL, Sumanth Ruiz Attending: ? Luna GILL, Genie Ruiz Referred By: ? CIERA ARMENDARIZ Accession#: ?[id number] Service(s) Provided URETRO - Retroperitoneal Complete - 002 [id number] ? [id number] Indications H/o nephrolithiasis, assess for new sto yesica Comparison Renal and bladder ultrasound, 12/07/10. Right Kidney Size (cm) ?L: ??10.57 Cortical Thickness: ?Normal Cortical Echogenicity: ?? Normal Hydronephrosis: ?No sonogr aphic evidence Left Kidney Size (cm) ?L: ??11.21 Cortical Thickness: ?Normal Cortical Echogenicity: ?? Normal [...] I ??viewed the images and agree with th e above interpretation. Thank you for allowing us [...] Final 07/09/2011 01:47 pm) Patient Info ID: [id number] : [birth year] (45 yrs ) Name: JESSICA GTZ Visit Date: 07/09 01:28 pm Performed By Performed By: Daphne Menjivar RDMS Associate: Sumanth Wolf MD Attending: Genie Carrasco MD Referred By: CIERA ARMENDARIZ Service(s) Provided URETRO - Retroperitoneal Complete - 002 [id number] Indications H/o nephrolithiasis, assess for new sto [...] by the attending Lucy Rueda MD IMG GEN ORDERABLES documented in this encounter Visit Diagnoses Diagnosis Nephrolithiasis Calculus of kidney documented in this encounter Care Teams Professor Of Philosophy Relationship Specialty Start Date End Date Monica Garcia MD PCP - General 07/18/10 03/05/12 [address] [place] [address] documented as of this encounter
--- OUTSIDE RECORDS SUMMARY | 2022-03-23 02:29 | XMS_ITS | Encounter Summary ---
:1965 Author Organization [facility] [place] [address] Care Team Providers Name Role Phone Monica Garcia MD Primary Care Provider Encounter Details Date Type Department Care Team Description 02/13/2011 Hospital Encounter Laboratory Monica Garcia, [facility] [place] [address] [address] [place], [place] [address] (Wo rk) Social History Tobacco Use Types [...] 0 08/24/2010 07/25/2011 mcg nasal spray Evening [place] Oil 500 0 08/24/2010 01/24/2015 mg Cap [...] MD [facility] UROLOGY DEPT. [place], [place] [address] (Wo rk) 04/10/2022 Office Visit Urology Luis Michael MD [facility] UROLOGY DEPT. [place], [place] [address] (Wo rk) 07/13/2022 Appointment Radiology Maile Hinojosa MD [facility] ENDOCRINOLOGY [place], [place] [address] (Wo rk) 07/13/2022 Office Visit Endocrinology Maile Hinojosa MD [facility] ER ENDOCRINOLOGY [place], [place] [address] (Wo rk) documented as of this encounter Visit Diagnoses Not on filedocumented in this encounter Care Teams Business Process Architect Relationship Specialty Start Date End Date Monica Garcia MD PCP - General 07/18/10 03/05/12 [address] [place] [address] documented as of this encounter
--- OUTSIDE RECORDS SUMMARY | 2022-03-23 02:29 | XMS_ITS | Encounter Summary ---
:1965 Author Organization [facility] [place] [address] Care Team Providers Name Role Phone None Primary Care Provider Unavailable Encounter Details Date Type Department Care Team Description 07/08/2012 Hospital Encounter Ultrasound at [facility] [place] [address] Social History Tobacco Use Types Packs/Day [...] estradiol-levonorgestrel Place 1 patch onto 4 patch 6 03/201201/17/2013 (CLIMARA PRO) 0.045-0.015 the skin once a mg/24 hrIndications: week. Perimenopause cetirizine (ZYRTEC) 10 mg Take 10 mg by mouth 0 02/12/2022 tablet daily. MOMETASONE FUROATE by Nasal route 0 (NASONEX NASL) daily. fluticasone-salmeterol Inhale 1 puff into 0 06/27/2017 (ADVAIR) 500-50 mcg/dose the lungs 2 times diskus inhaler daily as needed (winter time). SERTRALINE HCL (SERTRALINE 0 0 03/31/2013 ORAL) Evening [place] Oil 500 0 08/24/2010 01/24/2015 mg Cap [...] Appointment Radiology Ferdinand Michael MD [facility] UROLOGY DEPT. [place] [address] (Wo rk) 04/10/2022 Office Visit Urology Ferdinand Michael MD [facility] UROLOGY DEPT. [place], [place] [address] (Wo rk) 07/13/2022 Appointment Radiology Maile Hinojosa MD [facility] ENDOCRINOLOGY [place], [place] [address] (Wo rk) 07/13/2022 Office Visit Endocrinology Maile Hinojosa MD [facility] ENDOCRINOLOGY [place], [place] [address] (Wo rk) documented as of this encounter Procedures Procedure Name Priority Date/Time Associated Diagnosis Comme nts US RETROPERITONEAL STAT 07/08/2012 3:49 Nephrolithiasis Res ults for this COMPLETE PM EST procedure are i n the results section. documented in this encounter Results US retroperitoneal complete (07/08/2012 3:49 PM EST) Anatomical Region Laterality Modality Abdomen Ultrasound Specimen (Source) Anatomical Collection Method Collection Time Re ceived Time Location / / Volume Laterality 07/08/2012 3:49 PM EST Narrative 07/08/2012 5:17 PM EST ? Renal ? (Signed Final 07/08/2012 05 :16 pm) Patient Info ID: ? [id number] ? : ??[birth year] (46 yrs) Name: ? JESSICA GTZ ? Visit Date: 07/08/2012 03:45 pm Performed By Performed By: ?Shane Burciaga RDMS Attending: ? Noman GILL, Rose Narayan Referred By: ? FERDINAND MICHAEL MD Service(s) Provided URETRO - Retroperitoneal Complete - 002 [id number] ? [id number] Indications History of kidney stones Right Kidney [...] Final 07/08/2012 05:16 pm) Patient Info ID: [id number] : [birth year] (46 yrs ) Name: JESSICA GTZ Visit Date: 07/08 03:45 pm Performed By Performed By: Genie Burciaga RDMS Attending: Rose Tineo MD Referred By: FERDINAND MICHAEL MD Service(s) Provided URETRO - Retroperitoneal Complete - 002 [id number] Indications History of kidney stones Right Kidney [...] kidney documented in this encounter Care Teams Waste/Materials Exchange Specialist Relationship Specialty Start Date End Date None PCP - General 03/06/12 01/05/13 None documented as of this encounter
--- OUTSIDE RECORDS SUMMARY | 2022-03-23 02:29 | XMS_ITS | Encounter Summary ---
:1965 Author Organization [facility] [place] [address] Care Team Providers Name Role Phone Monica Garcia MD Primary Care Provider Reason for Visit Reason Comments Nephrolithiasis Encounter Details Date Type Department Care Team Description 07/25/2011 Follow-Up Urology at [facility] [place] Ferdinand Michael Nephrolithiasis (Primary [facility] , Dx) [place] [address] UROLOGY DEPT. [phone] [place], [place] [address] Social History Tobacco Use Types [...] Sign Reading Time Taken Comments Blood Pressure 118/81 07/25/2011 9:32 AM EST Pulse 74 07/25/2011 9:32 AM EST Temperature - - Respiratory Rate - - Oxygen Saturation - - Inhaled Oxygen Concentration - - Weight 68 kg (150 lb) 07/25/2011 9:32 AM EST Height 172.7 cm (5' 8) 07/25/2011 9:32 AM EST Body Mass Index 22.81 07/25/2011 9:32 AM EST documented in this encounter Progress Notes Kwaku Meraz LPN - 07/25/2011 11:07 AM EST Addended by: KWAKU MERAZ on: 07/25/2011 Modules accepted: Orders Ferdinand Michael Jr., MD - 07/25/2011 9:43 AM EST Subjective: Patient ID: Jessica Gtz is a 45 y.o. female. HPI Ms. Jessica Gtz returns to discuss management options for a history of urolithiasis, s/p SWL in 2007 and more recent left ureterscopy in 07/2010, who returns for routine follow-up. Ms. Gtz states that she continues to have discomfort that is mild-moderate in severity, located in the left flank, does not radiate, achy in quality, intermittent in occurrence, without associated left flank discomfort. She denies gross hematuria, fever, chills, nausea, vomiting. She denies visualized stone passage. At her last visit, a possible 5mm stone was noted in the left lower pole Her stone analysis showed 90% calcium oxalate [...] moderate dairy intake . Review of Systems Constitutional: Negative for fever and chills. HENT: Negative. Eyes: Negative. Respiratory: Positive for wheezing. Cardiovascular: Negative for chest pain. Gastrointestinal: Positive for abdominal pain (left flank). Genitourinary: Positive for flank pain. Negative for hematuria. Musculoskeletal: Positive for back pain (left sided). Neurological: Negative. Psychiatric/Behavioral: Negative for sleep disturbance. Objective: Physical Exam Vitals reviewed. Constitutional: She is oriented to person, place, and time. She appears well- developed and well-nourished. No distress. HENT: Head: Normocephalic and atraumatic. Eyes: No scleral icterus. Cardiovascular: Normal rate and regular rhythm. Pulmonary/Chest: Effort normal and breath sounds normal. No respiratory distress. She has no wheezes. She has no rales. She exhibits no tenderness. Abdominal: Soft. She exhibits no distension and no mass. Tenderness (scant left UQ soreness to deep palpatiob) is present. She has no rebound and no guarding. Genitourinary: Mild left CVA soreness to percussion Neurological: She is alert and oriented to person, place, and time. Skin: Skin is warm and dry. She is not diaphoretic. Psychiatric: She has a normal mood and affect. Her behavior is normal. Imaging studies: I independently reviewed the renal ultrasound from 07/09/11. This reveals no evidence of hydronephrosis or hydroureter. A possible stone is noted in the left lower pole. It is somewhatmore echogenic than background and has twinkle artifact although does not definitively shadow. KUB from today does not definitively show any stones over either renal shadow. Assessment and Plan: Impression/Plan: Possible left renal stone--nonobstructing. I had a long discussion with Jessica Gtz regarding her possible left renal stone . We discussed that if a stone is present we would not expect it to be symptomatic. She is concerned that it may be the source of her symptoms and would like to consider having it treated proactively. We discussed management options of watchful waiting, SWL, and ureteroscopy, and the relative risks, benefits, and limitations of each. Given the inability to locate the stone on plain film and the uncertainty that u/s imaging could be clearly reproduced, we discussed that SWL may not be possible if itcannot be definitely targeted. As such ureteroscopy may be preferable. She inquired about further imaging and we discussed pros and cons of CT for more definitive imaging, understanding that even if a stone is noted, it may be parenchymal and not accessible in the collecting system. Also, it may not actually be the source of her symptoms. She would like to proceed with CT and will call us after it has been performed to review the findings. If a stone is confirmed, she may wish to proceed with ureteroscopic treatment. documented in this encounter Plan of Treatment Upcoming Encounters Date Type Specialty Care Team Description 04/10/2022 Appointment Radiology Ferdinand Michael MD [facility] UROLOGY DEPT. [place], [place] [address] (Wo rk) 04/10/2022 Office Visit Urology Ferdinand Michael MD [facility] UROLOGY DEPT. [place], [place] [address] (Wo rk) 07/13/2022 Appointment Radiology Maile Hinojosa MD [facility] ENDOCRINOLOGY [place], [place] [address] (Wo rk) 07/13/2022 Office Visit Endocrinology Maile Hinojosa MD [facility] ENDOCRINOLOGY [place], [place] [address] (Wo rk) documented as of this encounter Procedures Procedure Name Priority Date/Time Associated Diagnosis Comme nts URINE CULTURE Routine 07/25/2011 11:11 AM Nephrolithiasis Resu lts for this EST procedure are i n the results section . documented in this encounter Results CT abdomen [...] varian cyst, suggest ultrasound for further evaluation. Ferdinand Michael Jr., MD IMG CT ORDERABLES Urine culture Clean Catch Urine (07/25/2011 11:11 AM EST) [facility] Method Time Signature Urine Culture CERNER ? Patient Name: JESSICA GTZ ? Ordered By: FERDINAND MICHAEL JR [facility] ? MR#: [id number] ?LOC: ??5B ? /Sex: ??1965 (45 years), ? Female ? PROCEDURE: Urine Culture ?SOURCE: U CC ? COLLECTED: 07/25/2011 11:11 ? STARTED: 07/25/2011 13:13 ? FINAL REPORT ? Final Report ? Verified:07/26/2011 07:23 ? No growth (Less than 1,000 cfu/ml). ? Specimen (Source) Anatomical Collection Method Collection Time Re ceived Time Location / / Volume Laterality Urine specimen 07/25/2011 11:11 1 1:13 obtained by clean AM EST PM EST catch procedure (specimen) Ferdinand Michael Jr., MD MICROBIOLOGY - GENERAL ORDER MERLE Performing Organization Address City/State/[place] [address] [facility] documented in this encounter Visit Diagnoses Diagnosis Nephrolithiasis - Primary Calculus of kidney Nephrolithiasis Calculus of kidney documented in this encounter Care Teams Egg And Spice Mixer Relationship Specialty Start Date End Date Monica Garcia MD PCP - General 07/18/10 03/05/12 [address] [place] [address] documented as of this encounter
--- OUTSIDE RECORDS SUMMARY | 2022-03-23 02:29 | XMS_ITS | Encounter Summary ---
:1965 Author Organization [facility] [place] [address] Care Team Providers Name Role Phone None Primary Care Provider Unavailable Reason for Visit Reason Comments Nephrolithiasis Encounter Details Date Type Department Care Team Description 07/08/2012 Follow-Up [facility]rology at [facility] ESPINO Nephrolithiasis (Primary [facility] Ferdinand Michael Jr., MD [facility] [place] [address] Dx) [place] [id number] Social History Tobacco Use Types Packs/Day Years [...] Sign Reading Time Taken Comments Blood Pressure 112/63 07/08/2012 4:39 PM EST Pulse 75 07/08/2012 4:39 PM EST Temperature - - Respiratory Rate - - Oxygen Saturation - - Inhaled Oxygen Concentration - - Weight - - Height - - Body Mass Index - - documented in this encounter Progress Notes Ferdinand Michael Jr., MD - 07/08/2012 4:55 PM EST Subjective: Patient ID: Jessica Gtz is a 46 y.o. female. HPI Ms. Jessica Gtz returns for follow up regarding a previously non- obstructing asymptomatic left renal stone. She is s/p SWL in 2007 and more recent left ureterscopy in 07/2010. Ms. [...] berries, nuts and chocolate). She drinks somedairy. She takes a calcium supplement for osteoporosis, with meals. Past medical history: migraines, GERD, urolithiasis, osteoporosis Past surgical history: SWL, left ureteroscopy Family history: no history of urolithiasis Social History: no tobacco history; no alcohol use Dietary History: 3-4 liters fluid intake/day; low sodium intake; moderate purine/animal protein intake; moderate oxalate intake; moderate dairy intake . Review of Systems Constitutional: Negative for fever. Gastrointestinal: Negative for abdominal pain. Genitourinary: Negative for hematuria and flank pain. Musculoskeletal: Positive for back pain (mild, left sided). Objective: Physical Exam Vitals reviewed. Constitutional: She is oriented to person, place, and time. She appears well- developed and well-nourished. No distress. HENT: Head: Normocephalic and atraumatic. Cardiovascular: Normal rate. Pulmonary/Chest: Effort normal. No respiratory distress. Abdominal: Soft. She exhibits no distension. No tenderness. She has no rebound and no guarding. Genitourinary: No CVA tenderness upon percussion Neurological: She is alert and oriented [...] I independently reviewed the CT from 07/2011 as well. This reveals no evidence of hydronephrosis, hydroureter, or urinary tract stones. Assessment and Plan: Impression/Plan: Doing well, without interval symptomatic stone recurrence. Possible small asymptomatic nonobstructing left lower pole stone remains unchanged. We reviewed mgmt options for this including watchful waiting, SWL, ureteroscopy. She declines any intervention, elects watchful waiting, and re quests re-evaluation in 6 months. She will call or return sooner if new interval problems arise. documented in this encounter Plan of Treatment Upcoming Encounters Date Type Specialty Care Team Description 04/10/2022 Appointment Radiology Ferdinand Michael MD [facility] UROLOGY DEPT. [place], [place] [address] (Wo rk) 04/10/2022 Office Visit Urology Ferdinand Michael MD [facility] UROLOGY DEPT. [place], [place] [address] (Rahul rk) 07/13/2022 Appointment Radiology Maile Hinojosa MD [facility] ENDOCRINOLOGY [place], [place] [address] (Rahul ascencio) 07/13/2022 Office Visit Endocrinology Maile Hinojosa MD [facility] ENDOCRINOLOGY [place], [place] [address] (Rahul ascencio) documented as of this encounter Results US retroperitoneal complete (01/06/2013 2:23 PM EDT) Anatomical Region Laterality Modality Abdomen Ultrasound Specimen (Source) Anatomical Collection Method Collection Time Re ceived Time Location / / Volume Laterality 01/06/2013 2:23 PM EDT Narrative 01/06/2013 2:34 PM EDT ? Renal ? (Signed Final 01/06/2013 02 :33 pm) Patient Info ID: ?[id number] ?: ??[birth year] (47 yrs) Name: ?JESSICA Charles GTZ ?Visit Date: 01/06/2013 02:22 pm Performed By Performed By: ?Hernan GARNER, ??Rozina christianson Attending: ? Veronica GILL, Weston Maloney Referred By: ? FERDINAND MICHAEL MD Service(s) Provided URETRO - Retroperitoneal Complete - 002 [id number] ? [id number] Indications History of kidney stones Comparison Ultrasound: 07/08/12 Right Kidney Size (cm) ?L: ??10.2 Cortical Thickness: ? Normal Cortical Echogenicity: ??Normal Hydronephrosis: ? No sonograp hic evidence Left Kidney Size (cm) ?L: ??11 Cortical Thickness: ? Normal Cortical Echogenicity: ??Normal Hydronephrosis: ? No sonograp hic evidence Urinary Bladder Pre-void (cm) ? L: ??3.2 ? A P: ??4.4 ? TV: ??8.4 Vol (ml): ?61.9 Comment: ?Partially distended, norm al contour Impression Ultrasound - ??Retroperitoneal Complete - Summary Normal renal and bladder ultrasound. I ??viewed the images and agree with kristi christianson above interpretation. Thank you for allowing us to participat e in the care of JESSICA GTZ. Please do not hesitate to call if you have any questions. ? Weston Martin MD Electronically Signed Final Report ?? 02:33 pm Procedure Note Weston Martin MD - 01/06/2013Format ting of this note might be different from the original. Renal (Signed Final 01/06/2013 02:33 pm) Patient Info ID: [id number] : [birth year] (47 yrs ) Name: JESSICA GTZ Visit Date: 01/06 02:22 pm Performed By Performed By: Xiomy Becerra RDMS Attending: Weston Martin MD Referred By: FERDINAND MICHAEL MD Service(s) Provided URETRO - Retroperitoneal Complete - 002 [id number] Indications History of kidney stones Comparison Ultrasound: 07/08/12 Right Kidney Size (cm) L: 10.2 Cortical Thickness: Normal Cortical Echogenicity: Normal Hydronephrosis: No sonographic evidence Left Kidney Size (cm) L: 11 Cortical Thickness: Normal Cortical Echogenicity: Normal Hydronephrosis: No sonographic evidence Urinary Bladder Pre-void (cm) L: 3.2 AP: 4.4 TV: 8.4 Vol (ml): 61.9 Comment: Partially distended, normal co ntour Impression Ultrasound - Retroperitoneal Complete - Summary Normal renal and bladder ultrasound. I viewed the images and agree with the above interpretation. Thank you for allowing us to participat e in the care of JESSICA GTZ. Please do not hesitate to call if you have any questions. Weston Martin MD Electronically Signed Final Report 01/06 02:33 pm Ferdinand Michael Jr., MD IMG US GEN ORDERABLES documented in this encounter Visit Diagnoses Diagnosis Nephrolithiasis - Primary Calculus of kidney Nephrolithiasis Calculus of kidney documented in this encounter Care Teams Meat Soaker Relationship Specialty Start Date End Date None PCP - General 03/06/12 01/05/13 None documented as of this encounter
--- OUTSIDE RECORDS SUMMARY | 2022-03-23 02:29 | XMS_ITS | Encounter Summary ---
:1965 Author Organization [facility] [place] [address] Care Team Providers Name Role Phone Monica Garcia MD Primary Care Provider Encounter Details Date Type Department Care Team Description 12/12/2010 External Results Obstetrics and Bobby Diamond, Gynecology at [facility] Victor Manuel [facility] [place] [address] OBSTETRICS & [phone] GYNECOLOGY [place], [place] [address] (Wo rk) Social History [...] Description 04/10/2022 Appointment Radiology Luis Michael MD [facility] UROLOGY DEPT. [place], [place] [address] (Wo rk) 04/10/2022 Office Visit Urology Luis Michael MD [facility] UROLOGY DEPT. [place], [place] [address] (Wo rk) 07/13/2022 Appointment Radiology Maile Hinojosa MD [facility] ENDOCRINOLOGY [place], [place] [address] (Wo rk) 07/13/2022 Office Visit Endocrinology Maile Hinojosa MD [facility] ENDOCRINOLOGY [place], [place] [address] (Wo rk) documented as of this encounter Procedures Procedure Name Priority Date/Time Associated Diagnosis Comme nts LAB SCAN Routine 12/08/2010 documented in this encounter Results LAB SCAN (12/08/2010) Narrative This result has an attachment that is no t available. Bobby Diamond MD MEDIA MGR SCAN EXT ORDR/RSLT documented in this encounter Visit Diagnoses Not on filedocumented in this encounter Care Teams Hardboard Supervisor Relationship Specialty Start Date End Date Monica Garcia MD PCP - General 07/18/10 03/05/12 [address] [place] [address] documented as of this encounter
--- OUTSIDE RECORDS SUMMARY | 2022-03-23 02:29 | XMS_ITS | Encounter Summary ---
:1965 Author Organization [facility] [place] [address] Care Team Providers Name Role Phone Monica Garcia MD Primary Care Provider Encounter Details Date Type Department Care Team Description 08/07/2011 Orders Only Obstetrics and Bobby Diamond Ovarian cyst ([place] [facility] [place] Victor Manuel Dx) [facility] [place] [address] OBSTETRICS & [phone] GYNECOLOGY [place], [place] [address] Social History Tobacco Use Types [...] MD [facility] UROLOGY DEPT. [place], [place] [address] (Wo rk) 04/10/2022 Office Visit Urology Luis Michael MD [facility] UROLOGY DEPT. [place], [place] [address] (Wo rk) 07/13/2022 Appointment Radiology Maile Hinojosa MD [facility] ENDOCRINOLOGY [place], [place] [address] (Wo rk) 07/13/2022 Office Visit Endocrinology Maile Hinojosa MD [facility] ENDOCRINOLOGY [place], [place] [address] (Wo rk) documented as of this encounter Visit Diagnoses Diagnosis Ovarian cyst - Primary Other and unspecified ovarian cyst documented in this encounter Care Teams Drywall Mechanic Relationship Specialty Start Date End Date Monica Garcia MD PCP - General 07/18/10 03/05/12 [address] [place] [address] documented as of this encounter
--- OUTSIDE RECORDS SUMMARY | 2022-03-23 02:29 | XMS_ITS | Encounter Summary ---
:1965 Author Organization [facility] [place] [address] Care Team Providers Name Role Phone Monica Garcia MD Primary Care Provider Reason for Visit Reason Comments Follow-up Encounter Details Date Type Department Care Team Description 07/09/2011 Follow-Up [place]rology [place] [facility] [place] ESPINO Nephrolithiasis (Primary [facility] Nadia Stapleton, [facility] UROLOGY DEPT. [place], [place] [id number] Dx) [place] [id number] Social History Tobacco Use Types Packs/Day Years [...] Sign Reading Time Taken Comments Blood Pressure 131/92 07/09/2011 1:57 PM EST Pulse 90 07/09/2011 1:57 PM EST Temperature - - Respiratory Rate - - Oxygen Saturation - - Inhaled Oxygen Concentration - - Weight 65.8 kg (145 lb) 07/09/2011 1:57 PM EST Height 172.7 cm (5' 8) 07/09/2011 1:57 PM EST Body Mass Index 22.05 07/09/2011 1:57 PM EST documented in this encounter Progress Notes Nadia Stapleton, SACHA - 07/09/2011 2:20 PM EST Chief Complaint: Urolithiasis Ms. Jessica Gtz is a pleasant 45 year old woman with a history of urolithiasis, s/p SWL in nd more recent left ureterscopy in 07/2010, who returns for routine follow-up. Ms. Gtz states that she has intermittent left flank discomfort. No gross hematuria. 09/04 discomfort today. No irritative voiding symptoms, nausea, vomiting, fever, or chills. She has not passed any stones in the interval. Her stone analysis showed 90% calcium oxalate dehydrate and 10% calcium phosphate. She drinks enough to put out 2 litres of urine per day, she has not been moderating her diet as well. She cuts back on salt, some oxalates-PB, some berries, nuts and chocolate. Eats some dairy. She has had 24 hour urine in the past. Review of systems: Reviewed with no new [...] is no evidence of stones or hydronephrosis in 12/04 Renal US: 07/06: Impression Ultrasound - Retroperitoneal Complete - Summary 1. Non-obstructing 5mm left lower pole calculus, not seen on prior. Kidneys are otherwise normal. 2. Normal bladder. Impression: 5 mm left Nephrolithiasis, s/p left ureterscopy and SWLs Plan: We reviewed the results of her U/S today showing new 5 mm left renal stone. She has mild symptoms. We reviewed a general stone prevention diet to include hydration with water for 2 liters of urine per day, and following a diet that is low in sodium (2000 mg), animal protein, and oxalates (list given). Plan on f/u in 6 months with renal U/S prior to assess for new stone formation, sooner with stone symptoms or new concerns. She will see Dr. Michael at this time to discuss surgeries. She will call sooner if her pain increases and she would like to talk about surgical options sooner. Nadia Bermudez aPRN documented in this encounter Plan of Treatment Upcoming Encounters Date Type Specialty Care Team Description 04/10/2022 Appointment Radiology Ferdinand Michael MD [facility] UROLOGY DEPT. [place], [place] [address] ( silva) 04/10/2022 Office Visit Urology Ferdinand Michael MD [facility] UROLOGY DEPT. [place], [place] [address] (Rahul ascencio) 07/13/2022 Appointment Radiology Maile Hinojosa MD [facility] ENDOCRINOLOGY [place], [place] [address] (Rahul ascencio) 07/13/2022 Office Visit Endocrinology Maile Hinojosa MD [facility] ENDOCRINOLOGY [place], [place] [address] (Rahul ascencio) documented as of this encounter Results US retroperitoneal complete (01/08/2012 4:31 PM EDT) Anatomical Region Laterality Modality Abdomen Ultrasound Specimen (Source) Anatomical Collection Method Collection Time Re ceived Time Location / / Volume Laterality 01/08/2012 4:31 PM EDT Narrative 01/08/2012 4:59 PM EDT ? Renal ? (Signed Final 01/08/2012 04 :58 pm) Patient Info ID: ? [id number] ? : ??[birth year] (46 yrs) Name: ? JESSICAKATIE GTZ ? Visit Date: 01/08/2012 04:29 pm Performed By Performed By: ?Akash Muse RDMS Attending: ? Veronica GILL, Weston Maloney Referred By: ? FERDINAND MICHAEL MD Service(s) Provided URETRO - Retroperitoneal Complete - [phone] [id number] ? [id number] Indications Nephrolithiasis Right Kidney Size (cm) ?L: [...] Final 01/08/2012 04:58 pm) Patient Info ID: [id number] : [birth year] (46 yrs ) Name: JESSICA GTZ Visit Date: 01/07 04:29 pm Performed By Performed By: Akash Muse RDMS Attending: Weston Martin MD Referred By: FERDINAND MICHAEL MD Service(s) Provided URETRO - Retroperitoneal Complete - [phone] [id number] Indications Nephrolithiasis Right Kidney Size (cm) L: [...] kidney documented in this encounter Care Teams Rfid Engineer Relationship Specialty Start Date End Date Monica Garcia MD PCP - General 07/18/10 03/05/12 [address] [place] [address] documented as of this encounter
--- OUTSIDE RECORDS SUMMARY | 2022-03-23 02:29 | XMS_ITS | Encounter Summary ---
:1965 Author Organization [facility] [place] [address] Care Team Providers Name Role Phone Monica Garcia MD Primary Care Provider Encounter Details Date Type Department Care Team Description 01/06/2013 Hospital Encounter [place] [facility] [place] [address] Social History Tobacco Use Types Packs/Day [...] HCL (SERTRALINE 0 0 03/31/2013 ORAL) Evening [place] Oil 500 0 08/24/2010 01/24/2015 mg Cap [...] Description 04/10/2022 Appointment Radiology Ferdinand Michael MD [facility] UROLOGY DEPT. [place], [place] [address] (Wo rk) 04/10/2022 Office Visit Urology Ferdinand Michael MD [facility] UROLOGY DEPT. [place], [place] [address] (Wo rk) 07/13/2022 Appointment Radiology Maile Hinojosa MD [facility] ENDOCRINOLOGY [place], [place] [address] (Wo rk) 07/13/2022 Office Visit Endocrinology Maile Hinojosa MD [facility] [address] ENDOCRINOLOGY [place], [place] [address] ([facility]) documented as of this encounter Procedures Procedure Name Priority Date/Time Associated Diagnosis Comme nts US RETROPERITONEAL STAT 01/06/2013 2:23 Nephrolithiasis Res ults for this COMPLETE PM EDT procedure are i n the results section. documented in this encounter Results US retroperitoneal complete (01/06/2013 2:23 PM EDT) Anatomical Region Laterality Modality Abdomen Ultrasound Specimen (Source) Anatomical Collection Method Collection Time Re ceived Time Location / / Volume Laterality 01/06/2013 2:23 PM EDT Narrative 01/06/2013 2:34 PM EDT ? Renal ? (Signed Final 01/06/2013 02 :33 pm) Patient Info ID: ?[id number] ?: ??[birth year] (47 yrs) Name: ?JESSICA GTZ ?Visit Date: 01/06/2013 02:22 pm Performed By Performed By: ?Hernan GARNER, ??Rozina christianson Attending: ? Veronica GILL, Weston Maloney Referred By: ? FERDINAND MICHAEL MD Service(s) Provided URETRO - Retroperitoneal Complete - 002 [id number] ? [id number] Indications History of kidney stones Comparison Ultrasound: [...] Final 01/06/2013 02:33 pm) Patient Info ID: [id number] : [birth year] (47 yrs ) Name: JESSICA GTZ Visit Date: 01/06 02:22 pm Performed By Performed By: Xiomy Becerra RDMS Attending: Weston Martin MD Referred By: FERDINAND MICHAEL MD Service(s) Provided URETRO - Retroperitoneal Complete - [phone] [id number] Indications History of kidney stones Comparison Ultrasound: [...] kidney documented in this encounter Care Teams Instructional Systems Design Consultant Relationship Specialty Start Date End Date Monica Garcia MD PCP - General 01/06/13 02/27/17 [address] [place] [address] documented as of this encounter
--- OUTSIDE RECORDS SUMMARY | 2022-03-23 02:29 | XMS_ITS | Encounter Summary ---
:1965 Author Organization [facility] [place] [address] Care Team Providers Name Role Phone Monica Garcia MD Primary Care Provider Encounter Details Date Type Department Care Team Description 08/09/2011 Hospital Encounter Ultrasound at [facility] [place] [address] Social History Tobacco Use Types Packs/Day [...] estradiol-norethindrone Place 1 patch onto 8 patch 11/2412/07/2011 (COMBIPATCH) 0.05-0.14 the skin twice a mg/24 hrIndications: week. Perimenopause fexofenadine (JEREL) 60 Take by mouth 0 07/03/2012 mg tablet daily. SERTRALINE HCL (SERTRALINE 0 0 03/31/2013 ORAL) Evening [address] Oil 500 0 08/24/2010 01/24/2015 mg Cap [...] Michael MD [facility] UROLOGY DEPT. [place], [place] [address] (Wo rk) 04/10/2022 Office Visit Urology Luis Michael MD [facility] UROLOGY DEPT. [place], [place] [address] (Wo rk) 07/13/2022 Appointment Radiology Maile Hinojosa MD [facility] ENDOCRINOLOGY [place], [place] [address] (Wo rk) 07/13/2022 Office Visit Endocrinology Maile Hinojosa MD [facility] ENDOCRINOLOGY [place], [place] [address] (Wo rk) documented as of this encounter Visit Diagnoses Not on filedocumented in this encounter Care Teams Generator Switchboard Operator Relationship Specialty Start Date End Date Monica Garcia MD PCP - General 07/18/10 03/05/12 [address] [place] [address] documented as of this encounter
--- OUTSIDE RECORDS SUMMARY | 2022-03-23 02:29 | XMS_ITS | Encounter Summary ---
:1965 Author Organization [place] [address] Care Team Providers Name Role Phone Monica Garcia MD Primary Care Provider Reason for Visit Reason Comments Ovarian Cyst Encounter Details Date Type Department Care Team Description 10/04/2011 Office Visit Obstetrics and [place], Ovarian cystic mass Gynecology at [facility] [place] Michelle Curry MD (Primary Dx) [facility] [address] [place], [place] OBSTETRICS & [address] GYNECOLOGY [phone] [place], [place] [address] (Wo rk) Social History Tobacco [...] documented as of this encounter Progress Notes Michelle Walsh MD - 10/04/2011 4:10 PM EST US only documented in this encounter Plan of Treatment Upcoming Encounters Date Type Specialty Care Team Description 04/10/2022 Appointment Radiology Luis Michael MD [facility] UROLOGY DEPT. [place], [place] [address] (Wo rk) 04/10/2022 Office Visit Urology Luis Michael MD [facility] UROLOGY DEPT. [place], [place] [address] (Wo rk) 07/13/2022 Appointment Radiology Maile Hinojosa MD [facility] ENDOCRINOLOGY [place], [place] [address] (Wo rk) 07/13/2022 Office Visit Endocrinology Maile Hinojosa MD [facility] ENDOCRINOLOGY [place], [place] [address] (Wo rk) documented as of this encounter Visit Diagnoses Diagnosis Ovarian cystic mass - Primary Other and unspecified ovarian cyst documented in this encounter Care Teams Vat Washer Relationship Specialty Start Date End Date Monica Garcia MD PCP - General 07/18/10 03/05/12 [address] [place] [address] documented as of this encounter
--- OUTSIDE RECORDS SUMMARY | 2022-03-23 02:29 | XMS_ITS | Encounter Summary ---
:1965 Author Organization [facility] [place] [address] Care Team Providers Name Role Phone Monica Garcia MD Primary Care Provider Encounter Details Date Type Department Care Team Description 01/09/2013 Orders Only Endocrinology at [facility] C Jennifer Romero, Osteoporosis (Primary [facility] [place]x) [place] [address] [place] [address] ENDOCRINOLOGY DEPT [place], [place] [address] Social History Tobacco Use Types [...] 04/10/2022 Appointment Radiology Luis Michael MD [facility] UROLOGY DEPT. [place], [place] [address] (Wo rk) 04/10/2022 Office Visit Urology Luis Michael MD [facility] UROLOGY DEPT. [place], [place] [address] (Wo rk) 07/13/2022 Appointment Radiology Maile Hinojosa MD [facility] ENDOCRINOLOGY [place], [place] [address] (Wo rk) 07/13/2022 Office Visit Endocrinology Maile Hinojosa MD [facility] ENDOCRINOLOGY [place], [place] [address] (Wo rk) documented as of this encounter Visit Diagnoses Diagnosis Osteoporosis - Primary Osteoporosis, unspecified documented in this encounter Care Teams Global Mobility Specialist Relationship Specialty Start Date End Date Monica Garcia MD PCP - General 01/06/13 02/27/17 [address] [place] [address] documented as of this encounter
--- OUTSIDE RECORDS SUMMARY | 2022-03-23 02:30 | XMS_ITS | Encounter Summary ---
:1965 Author Organization [facility] Address [address] [place] [address] Care Team Providers Name Role Phone Unavailable Primary Care Provider Unavailable Encounter Details Date Type Department Care Team Description 12/11/2004 Results Only [facility] - Tara Luong od, Kristal Estrada, COMMUNITY HEALTH NURSE STAFF [facility] [address] [place] [phone] (Wo rk) Social History Tobacco Use Types Packs/Day Years Used Date Never Assessed Sex Assigned at Date Recorded Not on file documented as of this encounter Plan of Treatment Not on filedocumented as of this encounter Procedures Procedure Name Priority Date/Time Associated Diagnosis Comme nts CYTOPATHOLOGY Routine 12/11/2004 0:00 EDT Results for this procedure are i n the results section . documented in this encounter Results CYTOPATHOLOGY (12/11/2004 0:00 EDT) Pathology Report: CYTOPATHOLOGY REPORT [facility] Reports generated via electronic interface contain panda ginal data; however they are lacking the format of the original re port. Caution should be taken when reading/interpreting unfo rmatted reports. Name: ? JESSICA GTZ WRN ? Accession #: ? [id number] : ? 1965 (Age: 39) ??F ?Collect Date: ? 11/24 Location: ? [facility] ? Receive Date : ? 12/13/2004 Provider: ?KRISTAL GORDON COMMUNITY HEALTH NURSE STAFF Copy to: ? Specimen/Source: ?Conventional Pap Test, Cer vix/Endocervix Last Menstrual Period: ? 11/29/04 Previous Gynecologic Pathology: ? ASC-US: 1994, paps negative since ? SPECIMEN ADEQUACY ? Satisfactory for Evaluation - transformation zone component present GENERAL CATEGORIZATION ? Negative for Intraepithelial Lesion or Malignan cy ? Document reviewed and electronically signed by: ? AVI Mcclendon(ASCP) ? Report Date: ??12/20/2004 09:49 End of Report Specimen Performing Organization Address City/State/ZIP Code Phon e Number [facility] [address] [place] [address] SERVICES [facility] [address] [place] [address] documented in this encounter Visit Diagnoses Not on filedocumented in this encounter
--- OUTSIDE RECORDS SUMMARY | 2022-03-23 02:30 | XMS_ITS | Encounter Summary ---
:[address] [facility] Address [address] [place] [address] Care Team Providers Name Role Phone Unavailable Primary Care Provider Unavailable Encounter Details Date Type Department Care Team Description 07/18/2001 Before PRISM [facility] - Kristal Carroll, Converted Visit Maple conversion RING MAKING MACHINE OPERATOR ([facility]le) [address] [facility] [address] [place] [address] [place], [place] [phone] (Wo rk) Social History Tobacco Use Types Packs/Day Years Used Date Never Assessed Sex Assigned at Date Recorded Not on file documented as of this encounter Plan of Treatment Not on filedocumented as of this encounter Procedures Procedure Name Priority Date/Time Associated Diagnosis Comme nts CYTOPATHOLOGY Routine 07/18/2001 0:00 EST Results for this procedure are i n the results section . documented in this encounter Results CYTOPATHOLOGY (07/18/2001 0:00 EST) Pathology Report: CYTOPATHOLOGY REPORT [facility] Reports generated via electronic interface contain panda ginal data; however they are lacking the format of the original re port. Caution should be taken when reading/interpreting unfo rmatted reports. Name: ? JESSICA GTZ WRN ? Accession #: ? [id number] : ? 1965 (Age: 35) ??F ?Collect Date: ? 06/27 Location: ? [facility] ? Receive Date : ? 07/22/2001 Provider: ?KRISTAL CARROLL RING MAKING MACHINE OPERATOR Copy to: ? Specimen/Source: ?Conventional Pap Test, Cer vix/Endocervix Last Menstrual Period: ? Hormonal/Contraceptive Status: ? Depo-Provera ? SPECIMEN ADEQUACY ? Satisfactory for evaluation. GENERAL CATEGORIZATION ? Within Normal Limits ? Document reviewed and electronically signed by: ? Suzie Fournier, SCT(ASCP) ? Report Date: ??07/25/2001 13:22 End of Report Specimen Performing Organization Address City/State/ZIP Code Phon e Number [facility] [address] [place] [address] SERVICES [facility] [address] [place] [address] documented in this encounter Visit Diagnoses Not on filedocumented in this encounter
--- OUTSIDE RECORDS SUMMARY | 2022-03-23 02:30 | XMS_ITS | Encounter Summary ---
:[address] [facility] Address [address] [place] [address] Care Team Providers Name Role Phone Unavailable Primary Care Provider Unavailable Encounter Details Date Type Department Care Team Description 01/15/2006 Results Only [facility] - Tara Luong od, Kristal Estrada, HOME MORTGAGE DISCLOSURE ACT SPECIALIST [facility] [address] [place] [phone] (Wo rk) Social History Tobacco Use Types Packs/Day Years Used Date Never Assessed Sex Assigned at Date Recorded Not on file documented as of this encounter Plan of Treatment Not on filedocumented as of this encounter Procedures Procedure Name Priority Date/Time Associated Diagnosis Comme nts CYTOPATHOLOGY Routine 01/15/2006 0:00 EDT Results for this procedure are i n the results section . documented in this encounter Results CYTOPATHOLOGY (01/15/2006 0:00 EDT) Pathology Report: CYTOPATHOLOGY REPORT [facility] Reports generated via electronic interface contain panda ginal data; however they are lacking the format of the original re port. Caution should be taken when reading/interpreting unfo rmatted reports. Name: ? JESSICA GTZ WRN ? Accession #: ? [id number] : ? 1965 (Age: 40) ??F ?Collect Date: ? 12/25 Location: ? [facility] ? Receive Date : ? 01/17/2006 Provider: ?KRISTAL GORDON HOME MORTGAGE DISCLOSURE ACT SPECIALIST Copy to: ? Specimen/Source: ?Conventional Pap Test, Cer vix/Endocervix Last Menstrual Period: ? 5./06/02 Previous Gynecologic Pathology: ? ASC-US: 1994 Paps neg. since ? SPECIMEN ADEQUACY ? Satisfactory for Evaluation - transformation zone component present GENERAL CATEGORIZATION ? Negative for Intraepithelial Lesion or Malignan cy ? Document reviewed and electronically signed by: ? Suzie Fournier, SCT(ASCP) ? Report Date: ??01/23/2006 12:03 End of Report Specimen Performing Organization Address City/State/ZIP Code Phon e Number [facility] [address] [place] [phone] SERVICES [facility] [address] [place] [address] documented in this encounter Visit Diagnoses Not on filedocumented in this encounter
--- OUTSIDE RECORDS SUMMARY | 2022-03-23 02:30 | XMS_ITS | Encounter Summary ---
:1965 Author Organization [facility] Address [address] [place] [address] Care Team Providers Name Role Phone Unavailable Primary Care Provider Unavailable Encounter Details Date Type Department Care Team Description 07/14/2002 Before PRISM [facility] - Kristal Carroll, Converted Visit Maple conversion SALES DEPARTMENT MANAGER (Maple) [address] [facility] [address] [place] [address] [place], [place] [phone] (Wo rk) Social History Tobacco Use Types Packs/Day Years Used Date Never Assessed Sex Assigned at Date Recorded Not on file documented as of this encounter Plan of Treatment Not on filedocumented as of this encounter Procedures Procedure Name Priority Date/Time Associated Diagnosis Comme nts CYTOPATHOLOGY Routine 07/14/2002 0:00 EST Results for this procedure are i n the results section . documented in this encounter Results CYTOPATHOLOGY (07/14/2002 0:00 EST) Pathology Report: CYTOPATHOLOGY REPORT [facility] Reports generated via electronic interface contain panda ginal data; however they are lacking the format of the original re port. Caution should be taken when reading/interpreting unfo rmatted reports. Name: ? JESSICA GTZ WRN ? Accession #: ? [id number] : ? 1965 (Age: 36) ??F ?Collect Date: ? 06/26 Location: ? [facility] ? Receive Date : ? 07/15/2002 Provider: ?KRISTAL CARROLL SALES DEPARTMENT MANAGER Copy to: ? Specimen/Source: ?Conventional Pap Test, Cer vix/Endocervix Last Menstrual Period: ? 06/26/02 Previous Gynecologic Pathology: ? ASC-US: 1994 ? SPECIMEN ADEQUACY ? Satisfactory for Evaluation - transformation zone component present GENERAL CATEGORIZATION ? Negative for Intraepithelial Lesion or Malignan cy ? Document reviewed and electronically signed by: ? NATHALY Mathews(ASCP) ? Report Date: ??07/21/2002 12:01 End of Report Specimen Performing Organization Address City/State/ZIP Code Phon e Number [facility] [address] [place] [address] SERVICES [facility] [address] [place] [address] documented in this encounter Visit Diagnoses Not on filedocumented in this encounter
--- OUTSIDE RECORDS SUMMARY | 2022-03-23 02:30 | XMS_ITS | Encounter Summary ---
:1965 Author Organization [facility] Address [address] [place] [address] Care Team Providers Name Role Phone Unavailable Primary Care Provider Unavailable Encounter Details Date Type Department Care Team Description 01/31/2007 Results Only [facility] - Manish Chiu MD conversion [address] [place] [address] Social History Tobacco Use Types Packs/Day Years Used Date Never Assessed Sex Assigned at Date Recorded Not on file documented as of this encounter Plan of Treatment Not on filedocumented as of this encounter Procedures Procedure Name Priority Date/Time Associated Diagnosis Comme nts CYTOPATHOLOGY Routine 01/31/2007 0:00 EDT Results for this procedure are i n the results section . documented in this encounter Results CYTOPATHOLOGY (01/31/2007 0:00 EDT) Pathology Report: CYTOPATHOLOGY REPORT [facility] Reports generated via electronic interface contain panda ginal data; however they are lacking the format of the original re port. Caution should be taken when reading/interpreting unfo rmatted reports. Name: ? JESSICA GTZ WRN ? Accession #: ? [id number] : ? 1965 (Age: 41) ??F ?Collect Date: ? 0603/2007 Location: ? [facility] ? Receive Date : ? 02/03/2007 Provider: ?MANISH COUCH MD Copy to: ? Specimen/Source: ? ThinPrep Pap Test, Cervix/Endocervix, processed on Prowl ThinPrep Imaging System, with manual evaluation Last Menstrual Period: ? 01.20.07 Treatment History: ? Chemotherapy ? SPECIMEN ADEQUACY ? Satisfactory for Evaluation - transformation zone component present GENERAL CATEGORIZATION ? Negative for Intraepithelial Lesion or Malignan cy ? Document reviewed and electronically signed by: ? AVI Ackerman(ASCP) ? Report Date: ??02/05/2007 13:09 End of Report Specimen Performing Organization Address City/State/ZIP Code Phon e Number [facility] [address] [place] [address] SERVICES [facility] [address] [place] [address] documented in this encounter Visit Diagnoses Not on filedocumented in this encounter
--- OUTSIDE RECORDS SUMMARY | 2022-03-23 02:30 | XMS_ITS | Encounter Summary ---
:1965 Author Organization [facility] Address [address] [place] [address] Care Team Providers Name Role Phone Unknown, Provider Primary Care Provider Encounter Details Date Type Department Care Team Description 01/05/2022 Lab Requisition [facility] Outr Resulting Lab, Pathology & Laboratory Provider [facility] [address] [place], [place] [id number] Social History Tobacco Use Types Packs/Day Years Used Date Never Assessed Sex Assigned at Date Recorded Not on file documented as of this encounter Plan of Treatment Not on filedocumented as of this encounter Procedures Procedure Name Priority Date/Time Associated Diagnosis Comme nts CALCIUM, URINE 24HR Routine 01/04/2022 15:51 Resu lts for this EDT procedure are i n the results section. documented in this encounter Results (ABNORMAL) CALCIUM, URINE 24HR (01/04/2022 15:51 EDT) Calcium, Urine 10.0 See Note [facility] Comment: mg/dL [facility] NOTE: SERVICES Reference range not established Calcium, Urine 24 330 (H)Comment: 100 - 300 [facility] hr Reference range mg/24hrs [facility] assumes a normal SERVICES daily intake of calcium between 600 - 800 mg/day. Urine Volume 3,300 mL [facility] SERVICES Urine Collection 24.0 Hours [facility]ENTER LABORATORY SERVICES Specimen Urine - 24 hour urine sample (specimen) Performing Organization Address City/State/ZIP Code Phon e Number [facility] [address] [place] [address] SERVICES documented in this encounter Visit Diagnoses Not on filedocumented in this encounter Care Teams Rim Fire Priming Operator Relationship Specialty Start Date End Date Unknown, Provider, PCP - General 07/04/15 documented as of this encounter
--- OUTSIDE RECORDS SUMMARY | 2022-03-23 02:30 | XMS_ITS | Clinical Summary ---
:1965 Author Organization [facility] Address [address] [place] [address] Care Team Providers Name Role Phone Unknown, Provider Primary Care Provider Encounters Date Type Specialty Care Team Description 01/05/2022 Lab Requisition Clinical Laboratory Outr Resulting Lab , Provider from Last 3 Months Social History Tobacco Use Types Packs/Day Years Used Date Never Assessed Sex Assigned at Date Recorded Not on file Plan of Treatment Not on file Procedures Procedure Name Priority Date/Time Associated Diagnosis Comme nts CALCIUM, URINE 24HR Routine 01/04/2022 15:51 Resu lts for this EDT procedure are i n the results section. from Last 3 Months Results (ABNORMAL) CALCIUM, URINE 24HR (01/04/2022 15:51 EDT) Calcium, Urine 10.0 See Note [facility] Comment: mg/dL CENTER LAB[facility]ORY NOTE: SERVICES Reference range not established Calcium, Urine 24 330 (H)Comment: 100 - 300 [facility] hr Reference range mg/24hrs [facility] assumes a normal SERVICES daily intake of calcium between 600 - 800 mg/day. Urine Volume 3,[address] [facility] SERVICES Urine Collection 24.0 Hours [facility] CENTER LABORATORY SERVICES Specimen Urine - 24 hour urine sample (specimen) Performing Organization Address City/State/ZIP Code Phon e Number [facility] [address] [place] [address] SERVICES from Last 3 Months Care Teams Machine Joint Cutter Relationship Specialty Start Date End Date Unknown, Provider, PCP - General 07/04/15
--- OUTSIDE RECORDS SUMMARY | 2022-03-23 02:30 | XMS_ITS | Encounter Summary ---
:1965 Author Organization [facility] Address [address] [place] [address] Care Team Providers Name Role Phone Unavailable Primary Care Provider Unavailable Encounter Details Date Type Department Care Team Description 07/10/2000 Before [facility] - Kristal Carroll, Converted Visit Maple conversion STEEL RIGGER (Maple) [address] [facility] [address] [place] [address] [place], [place] [phone] (Wo rk) Social History Tobacco Use Types Packs/Day Years Used Date Never Assessed Sex Assigned at Date Recorded Not on file documented as of this encounter Plan of Treatment Not on filedocumented as of this encounter Procedures Procedure Name Priority Date/Time Associated Diagnosis Comme nts CYTOPATHOLOGY Routine 07/10/2000 0:00 EST Results for this procedure are i n the results section . documented in this encounter Results CYTOPATHOLOGY (07/10/2000 0:00 EST) Pathology Report: CYTOPATHOLOGY REPORT [facility] Reports generated via electronic interface contain panda ginal data; however they are lacking the format of the original re port. Caution should be taken when reading/interpreting unfo rmatted reports. Name: ? JESSICA GTZ WRN ? Accession #: ? [id number] : ? 1965 (Age: 34) ??F ?Collect Date: ? 06/26 Location: ? [facility] ? Receive Date : ? 07/11/2000 Provider: ?KRISTAL CARROLL STEEL RIGGER Copy to: ? Specimen/Source: ?ThinPrep Pap Test, Cervix/ Endocervix Last Menstrual Period: ? Hormonal/Contraceptive Status: ? Depo-Provera ? SPECIMEN ADEQUACY ? Satisfactory for evaluation. GENERAL CATEGORIZATION ? Within Normal Limits ? Document reviewed and electronically signed by: ? AVI Ackerman(ASCP) ? Report Date: ??07/19/2000 13:38 End of Report Specimen Performing Organization Address City/State/ZIP Code Phon e Number [facility] [address] [place] [address] SERVICES [facility] [address] [place] [address] documented in this encounter Visit Diagnoses Not on filedocumented in this encounter
[2022-03-23 10:33] LABS: BE 3 mmol/L (-2-3); HCO3 28 mmol/L (22-26); pCO2 43 mmHg (35-45); pH 7.42 (7.35-7.45); pO2 91 mmHg (80-105); sO2 98 % (95-98); tCO2 25 mmol/L (23-27)
[2022-03-23 10:50] LABS: FIO2 ROOM AIR %; Site Right Radial
== END 2022-03-23 02:09 | disposition home or self-care (01) ==
LOC: RT 02:08
PROVIDERS: Student in an Organized Health Care Education/Training Program; PCP Nurse Practitioner Family; Visit Provider Internal Medicine Pulmonary Disease
DX: U07.1 COVID-19 (principal); J45.909 Unspecified asthma, uncomplicated
CPT/HCPCS: 82805; 94618; 36600

== ENCOUNTER 2022-04-19 15:14 | Outpatient (REF) | payer BC, SELFPAY ==
--- OUTSIDE RECORDS SUMMARY | 2022-04-19 15:17 | XMS_ITS | Clinical Summary ---
:1965 Author Organization [facility] [place] [address] Care Team Providers Name Role Phone Petar [...] mcg (0.1 %) into each nostril Aerosol, [place] twice a day galantamine (RAZADYNE) 12 mg [...] Active (Hygroten) 25 mg Tablet mouth daily. Additional Information Patient not taking. Reported on 04/10/2022 estradioL (Lia) 0.1 mg/24 Change 1 patch on the 8 patch 12 01/04/2022 Active hr Patch Semiweekly skin twice a week. Symbicort 160-4.5 Inhale 2 puffs into the 0 01/24/20 22 Active mcg/actuation HFA Aerosol lungs 2 times daily. Inhaler ondansetron (Zofran) 4 mg Take 4 mg by mouth every 0 01/17/2022 Active Tablet 8 hours as needed. omeprazole (PriLOSEC) 20 mg TAKE 1 CAPSULE BY MOUTH 0 01/18/2022 Active Capsule, Delayed EVERY DAY 30 MINUTES Release(E.C.) BEFORE EATING ProChamber Spacer USE DIRECTED WITH 0 12/25/2021 Active INHALER Allergy Relief, fexofenadine, SWALLOW 1 TABLET BY MOUTH 0 03/20/2022 Active 180 mg Tablet WHOLE WITH WATER ONCE A DAY DO NOT TAKE WITH FRUIT JUICES benzonatate (Tessalon) 100 mg Take 100 mg by mouth 3 0 04/02/2022 Active Capsule times daily as needed. Active Problems Problem Noted Date Hormone replacement therapy (postmenopausal) 2 Overview: HRT monitoring: HRT start: 2013 Current HRT: Estradiol patch 0.1mg twice weekly Methods tried: Estradiol patch, Mirena I UD (placed 04/2016) Last labs: Lipids 02/12/2022 The 10-year ASCVD risk score (Vinod Ruiz, et al., 2013) is: 1.3% Values used [...] Date Type Specialty Care Team Description 04/10/2022 Office Visit Urology Ferdinand Michael Nephrolithias is MD Jules 04/10/2022 Hospital Encounter Radiology Ferdinand Michael Nephrol ithiasis MD Jules 03/28/2022 Episode Changes Infectious [place], Diseases MD Juan 02/12/2022 Office Visit Obstetrics and Desiree Zabala Hot flashes ; Gynecology MD Mckinley Hormone replace ment therapy (postmenopausal) 02/12/2022 Laboratory Lab Hormone replace ment Appointment therapy (HRT) 02/12/2022 Hospital Encounter Radiology Ludy Grace Vaginal bleeding from Last 3 Months Immunizations Name Administration [...] Sign Reading Time Taken Comments Blood Pressure 107/71 04/10/2022 10:56 AM EDT Pulse 78 04/10/2022 10:56 AM EDT Temperature 36.2 ??C (97.2 ??F) [...] Encounters Date Type Specialty Care Team Description 07/13/2022 Appointment Radiology Maile Hinojosa MD [facility] ENDOCRINOLOGY [place], [place] [address] (Wo rk) 07/13/2022 Office Visit Endocrinology Maile Hinojosa MD [facility] [place], [place] [address] (Wo rk) Health Maintenance Due [...] Associated Diagnosis Comme nts US RETROPERITONEAL Routine 04/10/2022 10:23 Nephrolithiasis Re sults for this COMPLETE AM EDT procedure are i n the results section. SPECIAL EDUCATION PRESCHOOL TEACHER SCAN 03/26/2022 12:00 Res ults for this AM EDT procedure are i n the results section. STRESS TEST SCAN 03/13/2022 12:00 Results for this AM EDT procedure are i n the results section. LAB SCAN 03/01/2022 12:00 Results for this AM EDT procedure are i n the results section. ECHO SCAN (SCAN) 02/15/2022 12:00 Results for this AM EDT procedure are i n the results section. HC VENIPUNCTURE Routine 02/12/2022 8:35 Hormone replacement Re sults for this AM EDT therapy (HRT) procedure are in the results section. US TRANSVAGINAL NON OB Routine 02/12/2022 8:14 Vaginal bleedin g Results for this AM EDT procedure are i n the results section. PFT SCAN 02/02/2022 12:00 Results for this AM EDT procedure are i n the results section. LAB SCAN 01/31/2022 12:00 Results for this AM EDT procedure are i n the results section. from Last 3 Months Results US Retroperitoneal Complete (04/10/2022 10:23 AM EDT) Anatomical Region Laterality Modality Abdomen Ultrasound Specimen (Source) Anatomical Collection Method Collection Time Re ceived Time Location / / Volume Laterality 04/10/2022 10:06 AM EDT Impressions 04/10/2022 10:55 AM EDT 6 mm inferior nonobstructing renal ston e Otherwise within normal limits Electronically signed by: Lakeisha vieyra MD, [facility] [place] ([phone]), at 10:46 AM Thank you for letting us participate in the care of this patient. If you are a health care [facility] er and have any questions regarding this report, please contact the number above. For patients who have ques tions, please contact the [facility] professio nal that requested your imaging first. ??ANDRA [address]oldan [address] Ln & Dept Chair - Rad Electronically Signed Final Report ?? 10:54 am Narrative 04/10/2022 10:55 AM EDT Renal ? (Signed Final 04/10/2022 10:54 am) PATIENT INFO: ID #: ? [id number] ?: ??[birth year] (56 yrs)(F) Name: ? JESSICA Melvin GTZ ?Visit Date: 04/10/2022 10:06 am PERFORMED BY: Performed By: ? Alo GARNER, Mathew lópez Attending: ?Nelli GILL, Adalberto Beltran Referred By: ?FERDINAND MICHAEL JR Location: ? [place] SERVICE(S) PROVIDED: URETRO - Retroperitoneal Complete - IMG [id number] ? [id number] INDICATIONS: kidney stone surveillance. no stones on last RBUS. RIGHT KIDNEY: Size (cm) ?L: ??10.0 Cortical Thickness: ?Normal Cortical Echogenicity: ?? Normal Hydronephrosis: ?No sonogr aphic evidence LEFT KIDNEY: Size (cm) ?L: ??10.3 Cortical Thickness: ?Normal Cortical Echogenicity: ?? Normal Hydronephrosis: ?No sonogr aphic evidence Comment: ?0.6 x 0.3 x 0.4 cm inferi or non-obstructing renal ? calculi seen. URINARY BLADDER: Right Urinary Jet: Visualized Left Urinary Jet: ??Visualized Pre-void (cm) ? L: ??6.0 ? A P: ??5.9 ? TV: ??8.4 Vol (ml): ?155.7 Comment: ?Partially distended, norm al contour. Procedure Note Lakeisha Aiken MD - 04/10/2022Form atting of this note might be different from the original. Renal (Signed Final 04/10/2022 10:54 am ) PATIENT INFO: ID #: [id number] : [birth year] (56 y rs)(F) Name: JESSICA GTZ Visit Date: 04/10 10:06 am PERFORMED BY: Performed By: Cece Prajapati RDMS Attending: Lakeisha Aiken MD Referred By: FERDINAND MICHAEL JR Location: [facility] SERVICE(S) PROVIDED: URETRO - Retroperitoneal Complete - IMG [id number] INDICATIONS: kidney stone surveillance. no stones on last RBUS. RIGHT KIDNEY: Size (cm) L: 10.0 Cortical Thickness: Normal Cortical Echogenicity: Normal Hydronephrosis: No sonographic evidence LEFT KIDNEY: Size (cm) L: 10.3 Cortical Thickness: Normal Cortical Echogenicity: Normal Hydronephrosis: No sonographic evidence Comment: 0.6 x 0.3 x 0.4 cm inferior no n-obstructing renal calculi seen. URINARY BLADDER: Right Urinary Jet: Visualized Left Urinary Jet: Visualized Pre-void (cm) L: 6.0 AP: 5.9 TV: 8.4 Vol (ml): 155.7 Comment: Partially distended, normal co ntour. IMPRESSION 6 mm inferior nonobstructing renal ston e Otherwise within normal limits Electronically signed by: Lakeisha vieyar MD, [facility] ([phone]), at 10:46 AM Thank you for letting us participate in the care of this patient. If you are a [facility] er and have any questions regarding this report, please contact the number above. For patients who have ques tions, please [facility] your imaging first. Lakeisha Aiken [facility] [address] & Dept C hair - Rad Electronically Signed Final Report 04/10 10:54 am Ferdinand Michael Jr., MD IMG US GEN ORDERABLES SCAN DOC: SPECIAL EDUCATION PRESCHOOL TEACHER (03/26/2022 12:00 AM EDT) Narrative This result has an attachment that is no t available. Unknown MEDIA MGR SCAN EXT ORDR/RSLT SCAN DOC: STRESS TEST (03/13/2022 12:00 AM EDT) Narrative This result has an attachment that is no t available. Unknown MEDIA MGR SCAN EXT ORDR/RSLT SCAN DOC: LAB (03/01/2022 12:00 AM EDT)Only the most recent of2 resultswithin the time period is included. Narrative This result has an attachment that is no t available. Unknown MEDIA MGR SCAN EXT ORDR/RSLT SCAN DOC: ECHO (02/15/2022 12:00 AM EDT) Narrative This result has an attachment that is no t available. Unknown MEDIA MGR SCAN EXT ORDR/RSLT Lipid Panel (Reflex Direct LDL) (02/12/2022 8:35 AM EDT) P athologist Signature Chol, Total 205 mg/dL [facility] Comment: Lower Risk: <200 mg/dL Average Risk: 200-239 mg/dL Higher Risk: >db=267 mg/dL Triglycerides 86 mg/dL [facility] Comment: Average Risk/Lower Risk: <150 mg/dL Borderline High Risk: 150-199 mg/dL High Risk: 200-499 mg/dL Very High Risk: >tr=399 mg/dL HDL 75 mg/dL [facility] Comment: Males: ?? Higher Risk: <40 mg/dL Females: ?? Higher Risk: <50 mg/dL LDL Cholesterol 113 mg/dL [facility] Comment: Lowest Risk: <100 mg/dL Lower Risk: 100-129 mg/dL Borderline High Risk: 130-159 mg/dL High Risk: 160-189 mg/dL Very High Risk: >mk=072 mg/dL Chol/HDL Ratio 2.7 ratio [facility] Lipid Interpretation See Note [facility] Comment: Lipid management should be guided by a p atient? s ASCVD risk, goals and preferences. ACC/AHA Guidelines recommend high intens ity statin if clinical ASCVD or LDL greater than or equal to 190 mg/dL. http://3ROAMurl.com/PLS-CPS-Jffqhdrgh Adults aged 40-75 with LDL 70-189 mg/dL should have their 10 year ASCVD risk estimated with the ACC/AHA ASCVD risk es timator http://tools.acc.org/CVGQU-Nocy-Fgvawizv r/ Statin should be discussed if risk [...] Organization Address City/State/[place] [address] US Transvaginal Non OB [...] Electronically signed by: Weston mendosa MD, [facility] [place] ([phone]), at 9:24 AM Thank you for letting us participate in the care of this patient. If you are a health care [facility] er and have any questions regarding this report, please contact the number above. For patients who have ques tions, please contact the [facility] professio nal that requested your imaging first. ? Weston Martin, Staff Physician Electronically Signed Final Report ?? 09:31 am Narrative 02/12/2022 9:31 AM EDT Gynecological Report ?(Signed Final 02/12/2022 09:31 am) PATIENT INFO: ID #: ? [id number] ?: ??[birth year] (56 yrs)(F) Name: ? JESSICA Charles GTZ ?Visit Date: 02/12/2022 07:57 am PERFORMED BY: Performed By: ? Desiree Burrell RDMS Attending: ?Veronica GILL, Butch Maloney Referred By: ?LUDY GRACE Location: ? [place] SERVICE(S) PROVIDED: UTV - Transvaginal - [id number] ?[id number] U3D - ??3D rendering with interpretatio mary - [id number] ? [id number] INDICATIONS: vaginal bleeding, IUD in place TECHNIQUE/SCAN [...] 01/25 09:31 am) PATIENT INFO: ID #: [id number] : [birth year] (56 y rs)(F) Name: JESSICA GTZ Visit Date: 02/12 07:57 am PERFORMED BY: Performed By: Desiree Burrell RDMS Attending: Weston Martin MD Referred By: LUDY GRACE Location: [place] SERVICE(S) PROVIDED: UTV - Transvaginal - [id number] U3D - 3D rendering with interpretation - [id number] INDICATIONS: vaginal bleeding, IUD in place TECHNIQUE/SCAN [...] ovary. Electronically signed by: Weston mendosa MD, [facility] ([phone]), at 9:24 AM Thank you for letting us participate in the care of this patient. If you are a [facility] er and have any questions regarding this report, please contact the number above. For patients who have ques tions, please contact the [facility] professio nal that requested your imaging first. Weston Martin, Staff Physician Electronically Signed Final Report 02/12 09:31 am Ludy Grace MD IMG US PELVIC ORDERABLES SCAN DOC: PFT (02/02/2022 12:00 AM EDT) Narrative This result has an attachment that is no t available. Unknown MEDIA MGR SCAN EXT ORDR/RSLT from Last 3 Months Insurance Payer Benefit Plan Subscriber ID Effective Dates Phone Address Type / Group [employer] [facility] [id number] 2018-Jeanie [phone] [address] [facility] [address] [place] [address] Advance Directives Latest Code Status on File Code Status Date Activated Date Inactivated Comments Full Code 04/18/2017 12:11 PM 04/18/2017 5:24 PM Does patient have capacity to make decision: Yes Care Teams Business Systems Architect Relationship Specialty Start Date End Date Janet Davey, INDUSTRIAL RELATIONS DIRECTOR PCP - General Family Medicine 07/13/20 [address] [place] [address]
--- OUTSIDE RECORDS SUMMARY | 2022-04-19 15:17 | XMS_ITS | Encounter Summary ---
:1965 Author Organization [facility] Address [facility] [place] [address] Care Team Providers Name Role Phone Petar Janet Moss APRN Primary Care Provider Reason for Visit Reason Comments Annual Exam Encounter Details Date Type Department Care Team Description 10/21/2020 Office Visit Obstetrics and Saul Graham Hormone replacement therapy (HRT); Gynecology at [facility] H, CNM Encounter for gynecological examination with abnormal finding[facility], [place], [place] [phone] Social History Tobacco Use Types Packs/Day Years Used Date Never Smoker Smokeless Tobacco: Never Used Alcohol Use Standard Drinks/Week Comments No 0 (1 standard drink = 0.6 oz pure alcoho l) Sex Assigned at Date Recorded Female 01/29/2022 12:45 PM EDT documented as of this encounter Last Filed Vital Signs Vital Sign Reading Time Taken Comments Blood Pressure 115/78 10/21/2020 2:22 PM EST Pulse 74 10/21/2020 2:22 PM EST Temperature 36.9 ??C (98.4 ??F) 10/21/2020 2:22 PM EST Respiratory Rate 20 10/21/2020 2:22 PM EST Oxygen Saturation 100% 10/21/2020 2:22 PM EST Inhaled Oxygen Concentration - - Weight 70.7 kg (155 lb 14.4 oz) 10/21/2020 2:22 PM EST Height 172.7 cm (5' 8) 10/21/2020 2:22 PM EST Body Mass Index 23.7 10/21/2020 2:22 PM EST documented in this encounter Progress Notes Saul Graham CNM - 10/21/2020 2:20 PM EST Reason for Visit: Stacy Albright is a 55 y.o. postmenopausal female who presents for annualGYN exam. Menopausal at age: unknown HRT: Estradiol patch since 2013 Still gets a light spotting monthly. Mirena IUD placed 04/2016 for AUB. EMB WNL 2015. Estradiol patch since 2013. PAP/ HPV: 05/01/16 NILM/HPV neg 08/05/17 NILM Not sexually active. Lives with her . Health maintenance: Self-breast exam: regular Mammogram: 10/20/2019- BIRADS Cat 1 Mammo today pending Current Outpatient Medications on File Prior to Visit Medication Sig Dispense Refill ??? estradioL 0.1 [...] azelastine (ASTELIN) 137 mcg (0.1 %) Aerosol, [place] instill 1 spray into each nostril twice a day 0 ??? linaclotide (LINZESS) 72 mcg Capsule Take 72 mcg by mouth. One time per week ??? SUMAtriptan (IMITREX) 100 mg Tablet as needed for Migraine. 1 ??? levonorgestrel (MIRENA) 20 mcg/24 hr (5 years) IUD 1 each by Intrauterine route once. Lot [id number] ??? hydrocortisone (WESTCORT) 0.2 % Cream Apply [...] ointment 1 Appl(s) Top Twice daily ??? oxyCODONE (Roxicodone) 5 mg Tablet TK 1 T PO Q 6 H PRN ??? promethazine (Phenergan) 25 mg Tablet ??? LINZESS 145 mcg Capsule 145 mg every other day. 0 ??? KETOCONAZOLE (NIZORAL TOP) (Patient not taking: No sig reported) No current facility-administered medications on file prior to visit. Allergies Allergen Reactions ??? Grass Pollen-[place], Standard Other (See Comments) Runny nose, itching, sneezing ??? Mold Extracts Other (See Comments) Sneezing and runny nose Immunization History Administered Date(s) Administered ??? Influenza PF, Split 06/01/2016 ??? Influenza Vaccine PF, Quadrivalent 06/03/2019 ??? Influenza Vaccine w/Preservative, Split 06/10/2014 Past Medical History: Diagnosis Date ??? Abnormal glandular Papanicolaou smear of cervix age 15 ??? Asthma ??? Gastric acidity possible ulcer ??? History of nephrolithiasis ??? Memory difficulties 2018 ??? Migraines ??? Osteoporosis ??? Raynaud's disease ??? Shoulder pain R frozen shoulder and rotator cuff repair Past Surgical History: Procedure Laterality Date ??? CREATED BY INTERFACE EJosephSJosephWGuido(MSUROFull Color Games) Procedure Date: 01/16/2008 ??? KNEE SURGERY 03/01/14 Right knee; patella surgery ??? LITHOTRIPSY ? ? PRO CYSTOURETHROSCOPY, FULGUR <.5CM GISELA N/A 04/18/2017 CYSTO, FULGURATION\BLADDER LESION\W\WO BX\LESS THAN 0.5CM (WRVU 4.05) performed by Luis Michael Jr., MD at [facility] MAIN OR ??? SHOULDER SURGERY [...] History Narrative with 3 children. Lives in [place], [place]. 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 Eats relatively healthy with fruits, vegetables, yogurt, and milk; minimal meat. Eats 3 meals per day, does not drink tea or coffee, and occasionally drinks soda.Her youngest is 19 yrs old, in college in [place]. The other two are out of the [...] of Exercise per Session: Not on file ROS: Constitutional: No fevers, chills, weight loss, fatigue. HEENT: No visual changes, hearing loss, epistaxis, or rhinorrhea. Cardio: No Chest pain, palpitations, angina, dyspnea, shortness of breath. Resp: No wheeze\ing, cough, or sputum production. Abdomen/GI: No abdominal pain, nausea, vomiting, GERD, constipation, diarrhea, blood in stool. : No dysuria, abnormal discharge, lesions, itching, or irritation. Musculoskeletal: No changes in ROM, no joint swelling, sudden weakness. Skin: No rashes or discoloration. Psych:No sadness, depression, anxietyor suicidal ideation. Neuro: No seizures, BAINS, syncope, numbness or change in balance PE: BP 115/78 Pulse 74 Temp 36.9 ??C (98.4 ??F) (Temporal) Resp 20 Ht 172.7 cm (5' 8) Wt 70.7kg (155 lb 14.4 oz) SpO2 100% BMI 23.70 kg/m?? General - A&O x 3. Pleasant with no apparent distress. T Breasts - No dominant masses, nipple discharge, or retraction. Abdomen - soft, NT, no organomegaly, normal BS Pelvic exam External Genitalia - No lesions, discharge, or erythema, normal hair pattern Vagina - pale pink with atrophic changes, no lesions Cervix - Neg CMT, without lesions or abnormal discharge, IUD strings seen Uterus - normal size, non-tender, mobile Adnexa - non-tender, no palpable masses Extremities - FROM, no edema Neuro - grossly intact, sensory function appears intact, normal gait. Assessment/ Plan: Healthy 55 y.o. 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 Pap smeartoday ??? Hormone replacement therapy- the majority of visit discussing HRT therapy. Plan to keep Mirena in while on estrogen. Discussed risks of estrogen therapy below. At this time Stacy prefers to stay on Estradol 0.1mg/24hr and Mirena. We also discussed changing to an SSRI in the future for moods and hot flashes to decrease risk of HRT. Will continue current regimen for another yr. Women 50-59, cases per 1000 women per 5yrs of hormone use. ??? Coronary heart disease (CHD) - 2.5 additional cases ??? Invasive breast cancer - 3 additional cases ??? Stroke - 2.5 additional cases ??? Pulmonary embolism - 3 additional cases ??? Colorectal cancer - 0.5 fewer cases ??? Endometrial cancer - No difference ??? Hip fracture - 1.5 fewer cases ??? All-cause mortality - 5 fewer events Above age 60 or more than 10yrs from menopause, risks go up. This patient sees her primary care provider for age and disease specific screening not related to gynecological care Return for pelvic/breast exam in 1 year ??? Preventative recommendations for this patient include: ??? BSE ??? Regular exercise ??? Healthy diet F/u for annual or prn. Saul Graham CNM documented in this encounter Miscellaneous Notes Addendum Note - Saul Graham CNM - 10/21/2020 2:20 PM EST Addended by: SAUL GRAHAM on: 10/24/2020 04:44 PM Modules accepted: Orders, Level of Service documented in this encounter Plan of Treatment Upcoming Encounters Date Type Specialty Care Team Description 07/13/2022 Appointment Radiology Maile Hinojosa MD [facility] MEDICAL [facility] [place], [place] [address] (Wo rk) 07/13/2022 Office Visit Endocrinology Maile Hinojosa MD [facility] [place], [place] [address] (Wo rk) documented as of this encounter Procedures Procedure Name Priority Date/Time Associated Comments Diagnosis CYTOPATHOLOGY Routine 10/24/2020 4:44 PM Cervical cancer Resul ts for this GYNECOLOGICAL EST screening procedure are in the results section. HPV Routine 10/21/2020 2:20 PM Results f or this EST procedure are i n the results section. AGENCY SALES REPRESENTATIVE CYTOLOGY Routine 10/21/2020 2:20 PM Results f or this INTERPRETATION EST procedure are in the results section. AGENCY SALES REPRESENTATIVE CYTOLOGY FINAL Routine 10/21/2020 2:20 PM Res ults for this REPORT EST procedure are i n the results section. documented in this encounter Results Cytopathology Gynecological (10/24/2020 4:44 PM EST) Specimen Anatomical Collection Method Collection Time Receive d Time (Source) Location / / Volume Laterality AP Specimen 10/24/2020 4:44 PM 1 4:44 EST PM EST Narrative [facility] - 10/24/2020 4:44 PM EST Specimen requisition ordered. ??Separate Pathology report to follow Saul Graham CNM PATHOLOGY/CYTOLOGY ORDERABLE S Performing Organization Address City/[facility]/ZIP Code Phon e Number [address] AGENCY SALES REPRESENTATIVE Cytology Interpretation (10/21/2020 2:20 PM EST) [facility] Method Time Signature Civil Defense Director Cytology [facility] Interpretation Other [facility] Comment: Civil Defense Director Cytology Final Report Acces kendall: [id number] Civil Defense Director Cytology Comment Present [facility] Endocervical Component Present [facility] Specimen Anatomical Collection Method Collection Time Receive d Time (Source) Location / / Volume Laterality AP Specimen 10/21/2020 2:20 PM 1 1:35 EST PM EST Saul Graham CNM PATHOLOGY/CYTOLOGY ORDERABLE S Performing Organization Address City/[facility]/[place] [address] Civil Defense Director Cytology Final Report (10/21/2020 2:20 PM EST) Component Value Ref Test Analysis Performed At [facility] Range Method Time Signature Civil Defense Director Cytology [id number] ? Location: [address] [place] [address] Final Report [facility] The signing pathologist has (i) examined the relevant preparation(s) for the [facility] specimen(s) and (ii) rendered or confirmed the diagnosis(es) . HOSPITAL LABORATORY . ? Civil Defense Director Final DIAGNOSIS Other Negative for squamous intraepithelial lesion (TIGIST). See disc ussion. For consensus guidelines for the management of c ervical cancer screening test results, please see: ?? http://www.asccp.org . Electronically signed by: ??Alvino Nash MD Verified: ??11/05/2020 ?Pathologist Performed at: ??-[facility] Dept. of Pathology, [place], [place] DISCUSSION Endometrial cells present in a sample from a woman >/= 45 years old. The finding may be associated with benign lesions, hormonal alterations, and, less often, endometrial or uterine abnormalities. Consider endometrial evaluation in postmenopausal women. HPV RESULTS HPV16 (Result) ?Negative HPV18 (Result) ?Negative HPVOHR (Result) ? Negative HPV (Interpretation) ?See Below HPV (Interpretation) Text: [...] Gen omics and Advanced Technology (CGAT) at [facility]. ? - David Avilez, PhD, [facility], Director-[facility] STATEMENT OF ADEQUACY Specimen submitted is satisfactory. Endocervical component present. CLINICAL INFORMATION HPV Option: ?Concurrent HPV and Pap CT/NG Option: ?No Preparation: ? Liquid based Pap Specimen Source: ? Cervical/Endocervical LMP: ? n/a Hysterectomy: ?No : ?No : ?No I.U.D.: ?Yes Pelvic Radiation: ?No Hist Abnl Pap/Biopsy: ?No Prior AGENCY SALES REPRESENTATIVE Therapy: ? No Hist of HPV Vaccine: ? No . CLINICAL INFORMATION ICD Diagnosis: ? Z12.4 Encounter for screening for malignant neoplasm of cervix Clinical Data, Significant Therapy and Clinical Impression ? ? : ?_ This Pap Test has been evalu ated with the assistance of the nprogressp Pap Test Imaging System. Note: The Pap test is a screening test for cervical cancer with an inherent false-negative rate dependent upon several variables. For further information please contact the [facility] Laboratory. Reference: Devika LEON. Bookbinder Chief of Pap Smear Results. In: Sukumar BS, Roni CALLEJAS, meghan spangler. The Pap Smear. [place]: Jonah, 2002: 71-77. Specimen (Source) Anatomical Collection Method Collection Time Re ceived Time Location / / Volume Laterality 10/21/2020 2:20 PM EST Saul Graham CNM PATHOLOGY/CYTOLOGY ORDERABLE S Performing Organization Address City/State/[place] [address] HPV (10/21/2020 2:20 PM EST) [facility] Method Time Signature HPV 16 NEGATIVE NEGATIVE [facility] HPV 18 NEGATIVE NEGATIVE [facility] HPV Other HR NEGATIVE NEGATIVE [facility] HPV See Comment [facility] LABORATORY Comment: NEGATIVE for high-risk HPV [...] Location / / Volume Laterality Cervical swab 10/21/2020 2:20 PM 10/25/19 6:07 (specimen) EST PM EST Resulting Agency Comment Spec In Lab Saul Graham [facility] PATHOLOGY/CYTOLOGY ORDERABLE S Performing Organization Address City/State/[place] [address] documented in this encounter Visit Diagnoses Diagnosis Hormone replacement therapy (HRT) Encounter for gynecological examination with abnormal finding Routine gynecological examination Cervical cancer screening Screening for malignant neoplasm of the cervix documented in this encounter Care Teams Dietetic Aide Relationship Specialty Start Date End Date Janet Dvaey, GOLF CLUB WEIGHER PCP - General Family Medicine 07/13/20 [address] [place] [address] documented as of this encounter
--- OUTSIDE RECORDS SUMMARY | 2022-04-19 15:17 | XMS_ITS | Encounter Summary ---
:1965 Author Organization [facility] [place] [address] Care Team Providers Name Role Phone Janet [...] Description 07/13/2022 Appointment Radiology Maile Hinojosa MD [facility] ENDOCR[facility]OLOG[facility] [place], [place] [address] (Wo rk) 07/13/2022 Office Visit Endocrinology Maile Hinojosa MD [facility] ENDO[facility] [place], [place] [address] (Wo rk) documented as of this encounter Visit Diagnoses Not on filedocumented in this encounter Care Teams Automatic Pad Making Machine Operator Relationship Specialty Start Date End Date Janet Davey APRN PCP - General Family Medicine 07/13/20 [address] [place], [place] [id number] documented as of this encounter
--- OUTSIDE RECORDS SUMMARY | 2022-04-19 15:17 | XMS_ITS | Encounter Summary ---
:1965 Author Organization [facility] [place] [address] Care Team Providers Name Role Phone Janet Davey APRN Primary Care Provider Encounter Details Date Type Department Care Team Description 01/03/2022 Telephone Obstetrics and Gynecology at [facility] [place], [place] [phone] Social History Tobacco Use Types Packs/Day Years Used Date Never Smoker Smokeless Tobacco: Never Used Alcohol Use Standard Drinks/Week Comments No 0 (1 standard drink = 0.6 oz pure alcoho l) Sex Assigned at Date Recorded Female 01/29/2022 12:45 PM EDT documented as of this encounter Miscellaneous Notes Telephone Encounter - Jennie Zaldivar, RN - 01/03/2022 2:53 PM EDT Jessica Albright is a 56 y.o. female called to report spotting Dark brown in color started 3 days ago having occasional abdominal cramping. She is requesting a TVUS on the day of he appointment. Pt said this was agreed on at her last appointment if she started to bleed or spot she would have a U/S. WIll forward to Dr. Grace documented in this encounter Plan of Treatment Upcoming Encounters Date Type Specialty Care Team Description 07/13/2022 Appointment Radiology Maile Hinojosa MD [facility] ENDOCRINOLOGY [place], [place] [address] (Wo rk) 07/13/2022 Office Visit Endocrinology Maile Hinojosa MD [facility] ENDOCRINOLOGY [place], [place] [address] (Wo rk) documented as of [...] ovary. Electronically signed by: Weston mendosa MD, [facility] ([phone]), at 9:24 AM Thank you for letting us participate in the care of this patient. If you are a [facility] er and have any questions regarding this report, please contact the number above. For patients who have ques tions, please contact the [facility] professio nal that requested your imaging first. ? Weston Martin, Staff Physician Electronically Signed Final Report ?? 09:31 am Narrative 02/12/2022 9:31 AM EDT Gynecological Report ?(Signed Final 02/12/2022 09:31 am) PATIENT INFO: ID #: ? [id number] ?: ??[birth year] (56 yrs)(F) Name: ? JESSICA ALBRIGHT ?Visit Date: 02/12/2022 07:57 am PERFORMED BY: Performed By: ? Desiree Burrell RDMS Attending: ?Veronica GILL, Butch Maloney Referred By: ?LUDY GRACE Location: ? [facility] SERVICE(S) PROVIDED: UTV - Transvaginal - [id number] ?[id number] U3D - ??3D rendering with interpretatio n - [id number] ? [id number] INDICATIONS: vaginal bleeding, IUD in place TECHNIQUE/SCAN [...] 01/25 09:31 am) PATIENT INFO: ID #: [id number] : [birth year] (56 y rs)(F) Name: JESSICA ALBRIGHT Visit Date: 02/12 07:57 am PERFORMED BY: Performed By: Desiree Burrell RDMS Attending: Weston Martin MD Referred By: LUDY GRACE Location: [facility] SERVICE(S) PROVIDED: UTV - Transvaginal - [id number] U3D - 3D rendering with interpretation - [id number] INDICATIONS: vaginal bleeding, IUD in place TECHNIQUE/SCAN [...] ovary. Electronically signed by: Weston mendosa MD, [facility] ([phone]), at 9:24 AM Thank you for letting us participate in the care of this patient. If you are a [facility] er and have any questions regarding this report, please contact the number above. For patients who have ques tions, please contact the [facility] professio nal that requested your imaging first. Weston Martin, Staff Physician Electronically Signed Final Report 02/12 09:31 am Ludy Grace MD G PELVIC ORDERABLES documented in this encounter Visit Diagnoses Diagnosis Vaginal bleeding Other specified noninflammatory disorder of vagina Vaginal bleeding Other specified noninflammatory disorder of vagina documented in this encounter Care Teams Assistant Plant Control Operator Relationship Specialty Start Date End Date Janet Davey, PEANUT PICKER PCP - General Family Medicine 07/13/20 [address] [place] [address] documented as of this encounter
--- OUTSIDE RECORDS SUMMARY | 2022-04-19 15:17 | XMS_ITS | Encounter Summary ---
:1965 Author Organization [facility] [address] Care Team Providers Name Role Phone Petar Janet Moss APRN Primary Care Provider Reason for Visit Reason Comments Follow-up Encounter Details Date Type Department Care Team Description 02/12/2022 Office Visit Obstetrics and Desiree Zabala, Raissa flas hes; Gynecology at [facility] MD Hormone replacement therapy (postmenopau yanelis) [place], [place] OBSTETRICS AND [phone] GYNECOLOGY [phone] [place], [place] [address] Social History Tobacco Use Types [...] Zabala MD - 02/12/2022 9:20 AM EDT TRAIN STARTER Follow Up Visit Reason for Visit: Stacy [...] Lipids 02/12/2022 The 10-year ASCVD risk score (Vinodgene ROGERS Jr., et al., 2013) is: 1.3% Values [...] History: Procedure Laterality Date ??? CREATED BY Gigya AlejandraSJosephWGuido(Oh BiBiUROStemPath) Procedure Date: 01/16/2008 ??? KNEE SURGERY 03/01/14 Right knee; patella surgery ??? LITHOTRIPSY ? ? PRO CYSTOURETHROSCOPY, FULGUR <.5CM LESN N/A 04/18/2017 CYSTO, FULGURATION\BLADDER LESION\W\WO BX\LESS THAN 0.5CM (WRVU 4.05) performed by Luis Michael Jr., MD at [facility] MAIN OR ??? SHOULDER SURGERY Right 07/2019 [...] azelastine (ASTELIN) 137 mcg (0.1 %) Aerosol, [place] instill 1 spray into each nostril twice [...] Description 07/13/2022 Appointment Radiology Maile Hinojosa MD [facility] ENDOCRINOLOGY [place], [place] [address] (Wo rk) 07/13/2022 Office Visit Endocrinology Maile Hinojosa MD [facility] ENDOCRINOLOGY [place], [place] [address] (Wo rk) documented as of this encounter Visit Diagnoses Diagnosis Hot flashes Symptomatic menopausal or female climact [place] Hormone replacement therapy (postmenopau yanelis) Need for prophylactic hormone replacemen t therapy (postmenopausal) documented in this encounter Care Teams Technical Operations Manager Relationship Specialty Start Date End Date Janet Davey APRN PCP - General Family Medicine 07/13/20 [address] [place] [address] documented as of this encounter
--- OUTSIDE RECORDS SUMMARY | 2022-04-19 15:17 | XMS_ITS | Encounter Summary ---
:1965 Author Organization [facility] [place] [address] Care Team Providers Name Role Phone Janet Davey APRN Primary Care Provider Reason for Visit Reason Comments Follow-up Encounter Details Date Type Department Care Team Description 12/09/2020 Office Visit Obstetrics and Cece Graham vaginal Pap [facility]necology at [facility], CNM smear [address] [address] [place] [phone] Social History Tobacco Use Types Packs/Day Years [...] well. The estimated blood loss was minimal. Child Care Teacher present for procedure. A/P: Stacy is a [...] Description 07/13/2022 Appointment Radiology Maile Hinojosa MD [facility] [address] [place] [address] (Wo rk) 07/13/2022 Office Visit Endocrinology Maile Hinojosa MD [facility] DR ENDOCRINOLOGY [place], [place] [address] (Wo rk) documented as of [...] 4:26 PM 4:26 EDT PM EDT Narrative [facility] - 12/09/2020 4:26 PM EDT Specimen requisition ordered. ??Separate Pathology report to follow Cece CHAVEZ PATHOLOGY/CYTOLOGY ORDERABLE S Performing Organization Address City/State/[place] [address] Surgical Pathology Report (12/09/2020 4:00 PM EDT) Component Value Ref Test Analysis Performed At [facility] gist Range Method Time Signature Surgical [id number] ? Location: [facility]L [facility] Report The signing pathologist has (i) examined [...] of hyperplasia or endometritis. Electronically signed by: ?Sydney Hawk DO Verified: ??12/14/2020 11:13 ??Pathologist Performed at: ??-[facility] Dept. of Pathology, [place], [place] SPECIMEN(S) SUBMITTED a - endometrium, biopsy [...] Organization Address City/State/ZIP Code Phon e Number [address] documented in this encounter Visit Diagnoses Diagnosis Abnormal vaginal Pap smear Abnormal glandular Papanicolaou smear of vagina documented in this encounter Care Teams Flatwork Supervisor Relationship Specialty Start Date End Date Janet Davey, AWNING SPREADER PCP - General Family Medicine 07/13/20 [address] [place] [address] documented as of this encounter
--- OUTSIDE RECORDS SUMMARY | 2022-04-19 15:17 | XMS_ITS | Encounter Summary ---
:1965 Author Organization [facility] [place] [address] Care Team Providers Name Role Phone EdJanet mendez Isa GONCALVES Primary Care Provider Reason for Visit Reason Comments Follow-up Encounter Details Date Type Department Care Team Description 01/09/2021 Office Visit Obstetrics and Lucy Shepardenolena Gynecology [place] [facility] [place] Mary Jane [facility] Victor Manuel cifuentes [facility] [place] [address] OBSTETRICS & GYNECOLOGY [phone] [place], [place] [address] (Wo rk) Social History [...] Visit: 01/09/2021 Referred by: Cece Graham CNM [facility] [place] [address] HPI: Stacy [place] is a 55 y.o.. [...] azelastine (ASTELIN) 137 mcg (0.1 %) Aerosol, [place] instill 1 spray into each nostril twice [...] 1 each by Intrauterine route once. Lot [id number] 05/01/16 05/01/21 PROVIDER, HISTORICAL hydrocortisone (WESTCORT) 0.2 [...] azelastine (ASTELIN) 137 mcg (0.1 %) Aerosol, [place] instill 1 spray into each nostril twice a day 0 ??? LINZESS 145 mcg Capsule 145 mg as needed. 0 ??? SUMAtriptan (IMITREX) 100 mg Tablet as needed for Migraine. 1 ??? levonorgestrel (MIRENA) 20 mcg/24 hr (5 years) IUD 1 each by Intrauterine route once. Lot [id number] ??? hydrocortisone (WESTCORT) 0.2 % Cream Apply [...] History: Procedure Laterality Date ??? CREATED BY SferraS.ViddyadJosephLJoseph(CloudHashing) Procedure Date: 01/16/2008 ??? KNEE SURGERY 03/01/14 Right knee; patella surgery ??? LITHOTRIPSY ? ? PRO CYSTOURETHROSCOPY, FULGUR <.5CM SILASN N/A 04/18/2017 CYSTO, FULGURATION\BLADDER LESION\W\WO BX\LESS THAN 0.5CM (WRVU 4.05) performed by Luis Michael Jr., MD at [facility] MAIN OR ??? SHOULDER SURGERY Right [...] History Narrative with 3 children. Lives in [place], [place]. 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 Eats relatively healthy with fruits, vegetables, yogurt, and milk; minimal meat. Eats 3 meals per day, does not drink tea or coffee, and occasionally drinks soda.Her youngest is 19 yrs old, in college in [place]. The other two are out of the [...] Result Value Ref Range Surgical Pathology Report [id number] Location: 5L The signing pathologist has (i) [...] DO Verified: 12/14/2020 11:13 Pathologist Performed at: -[facility] Dept. of Pathology, [place], [place] SPECIMEN(S) SUBMITTED a - endometrium, biopsy [...] following with endocrinology, recommend office visit with remnants cutter to discuss stopping HRT in the setting of persistent postmenopausal bleeding. If we did discontinue HRT, reviewed that we could decrease estrogen strength to taper down. Plan as below: - pt to make appt with endocrinology to discuss stopping HRT in setting of monthly vaginal bleeding - f/u with sand drier in 3 mo after endocrinology --> recommendation to taper and then stop HRT Patient plan was formulated with Dr. Nunez, attending cylinder worker Lucy Shepard MD PGY1 01/09/2021 Genoveva Nunez [...] Description 07/13/2022 Appointment Radiology Maile Hinojosa MD [facility] [address] [place], [place] [address] (Wo rk) 07/13/2022 Office Visit Endocrinology Maile Hinojosa MD [facility] [address] MARMOLEJO [place], [place] [address] (Wo rk) documented as of this encounter Visit Diagnoses Diagnosis Perimenopause Symptomatic menopausal or female climact wendy states documented in this encounter Care Teams Rod Machine Operator Relationship Specialty Start Date End Date Janet Davey APRN PCP - General Family Medicine 07/13/20 [address] [place] [address] documented as of this encounter
--- OUTSIDE RECORDS SUMMARY | 2022-04-19 15:17 | XMS_ITS | Encounter Summary ---
:1965 Author Organization [facility] [place] [address] Care Team Providers Name Role Phone Janet Davey APRN Primary Care Provider Encounter Details Date Type Department Care Team Description 11/07/2020 Telephone Obstetrics and Gynecology [place] [address] [place] [address] [phone] Social History Tobacco Use Types Packs/Day Years [...] Hinojosa MD [facility] [place], [place] [address] (Wo rk) 07/13/2022 Office Visit Endocrinology Maile Hinojosa MD [facility] [place], [place] [address] (Wo rk) documented as of this encounter Visit Diagnoses Not on filedocumented in this encounter Care Teams Boat Motor Mechanic Relationship Specialty Start Date End Date Janet Davey APRN PCP - General Family Medicine 07/13/20 [address] [place] [address] documented as of this encounter
--- OUTSIDE RECORDS SUMMARY | 2022-04-19 15:17 | XMS_ITS | Encounter Summary ---
:1965 Author Organization [facility] [place] [address] Care Team Providers Name Role Phone Janet Davey APRN Primary Care Provider Encounter Details Date Type Department Care Team Description 01/03/2022 Telephone Obstetrics and Gynec ology at [facility] [place] [address] Social History Tobacco Use Types Packs/Day [...] Description 07/13/2022 Appointment Radiology Maile Hinojosa MD [facility] ENDOCRINOLOGY [place], [place] [address] (Wo rk) 07/13/2022 Office Visit Endocrinology Maile Hinojosa MD [facility] ENDOCRINOLOGY [place], [place] [address] (Wo rk) documented as of this encounter Visit Diagnoses Not on filedocumented in this encounter Care Teams Drug Abuse Counselor Relationship Specialty Start Date End Date Janet Davey APRN PCP - General Family Medicine 07/13/20 [address] [place] [address] documented as of this encounter
--- OUTSIDE RECORDS SUMMARY | 2022-04-19 15:17 | XMS_ITS | Encounter Summary ---
:1965 Author Organization [facility] [place] [address] Care Team Providers Name Role Phone Janet Davey SACHA Primary Care Provider Reason for Visit Reason Comments Nephrolithiasis Encounter Details Date Type Department Care Team Description 04/10/2022 Office Visit [place]rology [place] [facility] Ferdinand Michael Jr., Nephrolithiasis [facility] [place] [address] [facility] [phone] UROLOGY DEPT. [place], [place] [address] (Wo rk) Social History Tobacco [...] Pulse 78 04/10/2022 10:56 AM EDT Temperature - - Respiratory Rate - - Oxygen Saturation - - Inhaled Oxygen Concentration - - Weight - - Height - - Body Mass Index - - documented in this encounter Progress Notes Reagan Dale MD - 04/10/2022 11:00 AM EDT Images from the original note were not included. UROLOGY OUTPATIENT FOLLOW-UP HPI Ms. Stacy [place] is a pleasant 56 y.o. female who returns for urologic follow-up regarding mixed CaOx nephrolithiasis. She is s/p SWL in 2007 and left ureterscopy in 07/2010. Although ultrasounds have suggested a 4-5 mmleft lower pole stone, CT confirmed no residual stone. In 2016 after reported hematuria, she underwent CT urogram which showed no evident abnormality. She had reported possible hematuria and requested to proceed with evaluation -- Microscopuc u/a showed <1rbc/hpf. Cystoscopy revealed tiny raised lesion which was resected and confirmed to be benignurothelium. In 06/2019 patient had RBUS with possible punctate left nonobstructing renal stone. She last saw Dr. Michael in 06/2020, and had RBUS which showed no evidence of hydronephrosis, hydroureter, or stones. She did not have any urologic complaints at that time. In the interval since her last visit, she has been well from standpoint. She denies stone passage, suspected renal colic, hematuria, dysuria or other complaints. Does note mild intermittent pain in left abdomen. Developed long COVID syndrome in interim with SOB and tachycardia. REVIEW OF SYSTEMS 04/01/2022 Constitutional None of the above Ear / nose / throat / mouth None of the above Eyes None of the above Respiratory Other respiratory symptoms (lungs, breathing) Cardiovascular Other heart symptoms Gastrointestinal None of the above Skin, hair None of the above Musculoskeletal None of the above Neurological None of the above Hematologic / Lymphatic None of the above Genitourinary None of the above Other Symptoms I have long Covid, my oxygen drops and my heart rate goes way up. Past medical history: migraines, GERD, urolithiasis, osteoporosis Past surgical history: SWL, left ureteroscopy, multiple orthopedic surgeries. Family history: no history of urolithiasis Social History: no tobacco history; no alcohol use Dietary History: 3-4 liters fluid intake/day; low sodium intake; moderate purine/animal protein intake; moderate oxalate intake; moderate dairy intake . Physical Exam Vitals reviewed. Constitutional: General: She is not in acute distress. Appearance: She is well-developed. She is not diaphoretic. HENT: Head: Normocephalic and atraumatic. Cardiovascular: Rate and Rhythm: Normal rate. Pulmonary: Effort: Pulmonary effort is normal. No respiratory distress. Abdominal: Palpations: Abdomen is soft. Tenderness: There is no abdominal tenderness. There is no rebound. Genitourinary: Comments: No CVA tenderness to percussion bilaterally Skin: General: Skin is warm and dry. Neurological: Mental Status: She is alert and oriented to person, place, and time. Psychiatric: Behavior: Behavior normal. Stone analysis: 90% calcium oxalate dihydrate and 10% calcium phosphate. Imaging studies: I independently reviewed the renal ultrasound from today. This reveals left-sided 6mm inferior nonobstructing renal stone. No evidence of hydronephrosis, hydroureter, or right sided stone. Previously had a question of left mid-pole 3mm calculus on US in 2019 which is not visualized. IMPRESSION ?? 6 mm inferior nonobstructing renal stone Otherwise within normal limits ?? Impression/Plan: Doing well, left-sided 6 mm inferior nonobstructing renal stone. We will plan to see her in 1 year with an ultrasound at that time. 1) left nonobstructing renal stone -Discussed management options including surveillance, ureteroscopy, or SWL. Patient opting for surveillance at this time as this stone is not causing many symptoms. Will see her in 1 year with RBUS. She has been instructed to call or return in the interval if new signs or symptoms of stone passage/renal colic should develop. This patient was seen in conjunction with Dr. Michael, Urology Attending. Reagan Dale MD STAFF ADDENDUM: I saw and examined Stacy [place] with Dr. Dale, have independently reviewed her ultrasound, and concur with history, exam, impression, and plan as noted and amended. FERDINAND MICHAEL JR, MD Ferdinand Michael Jr., MD - 04/10/2022 11:00 AM EDT I saw and examined Stacy [place] with Dr. Dale and have independently reviewed her imaging studies. I agree with history, exam, impression, and plan as noted. Briefly, this very pleasant 56-year-old woman returns for a 2-month follow-up regarding nephrolithiasis. Ultrasound imaging today suggest interval new left lower pole stone formation. The stones measure between 4 to 6 mm. We reviewed management options at length and she declines intervention. She wishes to continue with annual surveillance. She will contact us in the interval if new symptoms or problems should arise. documented in this encounter Plan of Treatment Upcoming Encounters Date Type Specialty Care Team Description 07/13/2022 Appointment Radiology Maile Hinojosa MD [facility] ENDOCRINOLOGY [place], [place] [address] (Wo rk) 07/13/2022 Office Visit Endocrinology Maile Hinojosa MD [facility] ENDOCRINOLOGY [place], [place] [address] (Wo rk) Scheduled Orders Name Type Priority Associated Diagnoses Order S chedule US Retroperitoneal Complete Imaging Routine Nephrolithias is Expected: 04/10/2023, Exp ires: 04/10/2023 documented as of this encounter Visit Diagnoses Diagnosis Nephrolithiasis Calculus of kidney documented in this encounter Care Teams Curtain Inspector Relationship Specialty Start Date End Date Janet Davey APRN PCP - General Family Medicine 07/13/20 [address] [place] [address] documented as of this encounter
--- OUTSIDE RECORDS SUMMARY | 2022-04-19 15:17 | XMS_ITS | Encounter Summary ---
:1965 Author Organization [facility] [place] [address] Care Team Providers Name Role Phone EdJanet mendez Isa GONCALVES Primary Care Provider Encounter Details Date Type Department Care Team Description 06/15/2021 Telephone Obstetrics and Gynecology Paty Shepard, at [facility] [place] [address] OBSTETRICS & GYNECOLOGY [phone] [place], [place] [address] (Wo rk) Social History Tobacco [...] Description 07/13/2022 Appointment Radiology Maile Hinojosa MD [facility] ER DR MARMOLEJO [place], [place] [address] (Wo rk) 07/13/2022 Office Visit Endocrinology Maile Hinojosa MD [facility] [address] MARMOLE[address] [place], [place] [address] (Wo rk) documented as of this encounter Visit Diagnoses Not on filedocumented in this encounter Care Teams Frozen Yogurt Maker Relationship Specialty Start Date End Date Janet Davey APRN PCP - General Family Medicine 07/13/20 [address] [place] [address] documented as of this encounter
--- OUTSIDE RECORDS SUMMARY | 2022-04-19 15:17 | XMS_ITS | Encounter Summary ---
:1965 Author Organization [facility] [address] Care Team Providers Name Role Phone Janet Davey APRN Primary Care Provider Reason for Visit Reason Comments Medication Refill Encounter Details Date Type Department Care Team Description 10/16/2020 Refill [facility] Victor Manuel cifuentes OBSTETRICS [place] [address] [place] [address] [phone] (Wo rk) Social History Tobacco Use Types [...] Description 07/13/2022 Appointment Radiology Maile Hinojosa MD [facility] [address] MARMOLEJO [place], [place] [address] (Wo rk) 07/13/2022 Office Visit Endocrinology Maile Hinojosa MD [facility] [address]MO[address] [place], [place] [address] (Wo rk) documented as of this encounter Visit Diagnoses Not on filedocumented in this encounter Care Teams Picture Enlarger Relationship Specialty Start Date End Date Janet Davey APRN PCP - General Family Medicine 07/13/20 [address] [place] [address] documented as of this encounter
--- OUTSIDE RECORDS SUMMARY | 2022-04-19 15:17 | XMS_ITS | Encounter Summary ---
:1965 Author Organization [facility] [place] [address] Care Team Providers Name Role Phone EdJanet mendez Isa GONCALVES Primary Care Provider Reason for Visit Reason Comments Annual Exam Encounter Details Date Type Department Care Team Description 11/02/2021 Office Visit Obstetrics and Drea, Encounter for well woman exam with routine gynecological exam; Gynecology at [facility] Lucy Hinton MD Hot flashes, menopausal [facility] [address] [place], [place] OBSTETRICS & [phone] GYNECOLOGY [phone] [place], [place] [address] (Wo rk) Social History Tobacco [...] Janet Davey, SACHA [address] [place] [address] Chief Complaint Patient presents with ??? Annual [...] is significantly affecting her quality of life. River Rat Hx: In addition to above-- Sexual History:Not currently sexually active. States partner unable to due to health concerns. HRT: As above, estradiol patch w/ Mirena for endometrial protection STI Hx Denies history of STDs. Pap hx: Last pap on 10/21/2020: NILM, HPV negative History of RELAY MAN pathology: none HRT - Cancer Screening Denies [...] azelastine (ASTELIN) 137 mcg (0.1 %) Aerosol, [place] instill 1 spray into each nostril twice [...] azelastine (ASTELIN) 137 mcg (0.1 %) Aerosol, [place] instill 1 spray into each nostril twice [...] History: Procedure Laterality Date ??? CREATED BY [employer].S.W.L.(Rapid RMS) Procedure Date: 01/16/2008 ??? KNEE SURGERY 03/01/14 Right knee; patella surgery ??? LITHOTRIPSY ? ? PRO CYSTOURETHROSCOPY, FULGUR <.5CM LESN N/A 04/18/2017 CYSTO, FULGURATION\BLADDER LESION\W\WO BX\LESS THAN 0.5CM (WRVU 4.05) performed by Luis Michael Jr., MD at [facility] MAIN OR ??? SHOULDER SURGERY Right [...] History Narrative with 3 children. Lives in [place], [place]. 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 Eats relatively healthy with fruits, vegetables, yogurt, and milk; minimal meat. Eats 3 meals per day, does not drink tea or coffee, and occasionally drinks soda.Her youngest is 19 yrs old, in college in [place]. The other two are out of the [...] normal work of breathing Breasts: (performed with launch engineer): Breasts are without masses, skin changes, or dimpling bilaterally. No axillary lymphadenopathy is appreciable. (Rubber Washer present.) Psychiatric: She has a normal mood and affect. Her behavior is normal. Thought content normal. Pelvic Exam: Performed in the presence of a launch engineer Normal external female genitalia with evidence [...] a PCP for routine healthcare maintenance and testing tech for osteoporosis management. Pt is s/p Mirena [...] estrogen dose management. After review with attending vibrator equipment tester, Dr. Miner, shortly after patient left, it [...] medical management discussed with Dr. Miner, attending vibrator equipment tester. Lucy Shepard MD PGY2 Brittanie Hardy LPN - 11/02/2021 3:00 PM EST This patient was seen in the OBGYN clinic today. I was present as launch engineer for the sensitive parts of her [...] Description 07/13/2022 Appointment Radiology Maile Hinojosa MD [facility] [address] [place], [place] [address] (Wo rk) 07/13/2022 Office Visit Endocrinology Maile Hinojosa MD [facility] [address] [place], [place] [address] (Wo rk) documented as of this encounter Visit Diagnoses Diagnosis Encounter for well woman exam with merrick resendiz gynecological exam Hot flashes, menopausal Symptomatic menopausal or female climact wendy states documented in this encounter Care Teams Osteopathic Medicine Teacher Relationship Specialty Start Date End Date Janet Davey APRN PCP - General Family Medicine 07/13/20 [address] [place] [address] documented as of this encounter
--- OUTSIDE RECORDS SUMMARY | 2022-04-19 15:17 | XMS_ITS | Encounter Summary ---
:1965 Author Organization [place] [address] Care Team Providers Name Role Phone Petar Janet Isa GONCALVES Primary Care Provider Encounter Details Date Type Department Care Team Description 04/10/2022 Hospital Encounter [place] [facility] [place] Michael Nephrolithiasis [facility] [place] [address] UROLOGY DEPT. [phone] [place], [place] [address] Social History Tobacco Use Types Packs/Day Years Used Date Never Smoker Smokeless Tobacco: Never Used Alcohol Use Standard Drinks/Week Comments No 0 (1 standard drink = 0.6 oz pure alcoho l) Sex Assigned at Date Recorded Female 01/29/2022 12:45 PM EDT documented as of this encounter Medications at Time of Discharge Medication Sig Dispensed Refills Start Date End Date ondansetron (Zofran) 4 mg Take 4 mg by mouth 0 Tablet every 8 hours as needed. omeprazole (PriLOSEC) 20 mg TAKE 1 CAPSULE BY 0 0 01/18/2022 Capsule, Delayed MOUTH EVERY DAY 30 Release(E.C.) MINUTES BEFORE EATING ProChamber Spacer USE DIRECTED WITH 0 12/26/19 INHALER Allergy Relief, SWALLOW 1 TABLET BY 0 03/20/2022 fexofenadine, 180 mg Tablet MOUTH WHOLE WITH WATER ONCE A DAY DO NOT TAKE WITH FRUIT JUICES benzonatate (Tessalon) 100 Take 100 mg by mouth 0 04/02/2022 mg Capsule 3 times daily as needed. Symbicort 160-4.5 Inhale 2 puffs into 0 [...] into 0 1 mcg (0.1 %) Aerosol, [place] each nostril twice a day SUMAtriptan (IMITREX) [...] 07/13/2022 Appointment Radiology Maile Hinojosa MD [facility] ER [address] MARMOLEJO [place], [place] [address] (Wo rk) 07/13/2022 Office Visit Endocrinology Maile Hinojosa MD [facility] DR [facility]MOLE[facility] [place] [address] (Wo rk) documented as of this encounter Procedures Procedure Name Priority Date/Time Associated Diagnosis Comme nts US RETROPERITONEAL Routine 04/10/2022 10:23 Nephrolithiasis Re sults for this COMPLETE AM EDT procedure are i n the results section. documented in this encounter Results US Retroperitoneal Complete (04/10/2022 10:23 AM EDT) Anatomical Region Laterality Modality Abdomen Ultrasound Specimen (Source) Anatomical Collection Method Collection Time Re ceived Time Location / / Volume Laterality 04/10/2022 10:06 AM EDT Impressions 04/10/2022 10:55 AM EDT 6 mm inferior nonobstructing renal ston e Otherwise within normal limits Electronically signed by: Lakeisha vieyra MD, Radiology [place] ([phone]), at 10:46 AM Thank you for letting us participate in the care of this patient. If you are a [facility] er and have any questions regarding this report, please contact the number above. For patients who have ques tions, please contact the [facility] professio nal that requested your imaging first. ??Lakeisha Aiken [facility] Dept Chair - Rad Electronically Signed Final Report ?? 10:54 am Narrative 04/10/2022 10:55 AM EDT Renal ? (Signed Final 04/10/2022 10:54 am) PATIENT INFO: ID #: ? [id number] ?: ??[birth year] (56 yrs)(F) Name: ? JESSICA GTZ ?Visit Date: 04/10/2022 10:06 am PERFORMED BY: Performed By: ? Alo GARNER, Mathew lópez Attending: ?Nelli GILL, Adalberto Beltran Referred By: ?FERDINAND MICHAEL JR Location: ? [place] SERVICE(S) PROVIDED: URETRO - Retroperitoneal Complete - IMG 3517 ? [id number] INDICATIONS: kidney stone surveillance. no stones on [...] 10:54 am ) PATIENT INFO: ID #: [id number] : [birth year] (56 y rs)(F) Name: JESSICA GTZ Visit Date: 04/10 10:06 am PERFORMED BY: Performed By: Cece Prajapati RDMS Attending: Lakeisha Aiken MD Referred By: FERDINAND MICHAEL JR Location: [place] SERVICE(S) PROVIDED: URETRO - Retroperitoneal Complete - [facility] [id number] INDICATIONS: kidney stone surveillance. no stones on [...] Electronically signed by: Lakeisha vieyra MD, Radiology [place] ([phone]), at 10:46 AM Thank you for letting us participate in the care of this patient. If you are a [facility] er and have any questions regarding this report, please contact the number above. For patients who have ques tions, please contact the [facility] professio nal that requested your imaging first. Lakeisha Aiken, [facility] Dept C hair - Rad Electronically Signed Final Report 04/10 10:54 am Ferdinand Michael Jr., MD IMG GEN ORDERABLES documented in this encounter Visit Diagnoses Diagnosis Nephrolithiasis Calculus of kidney documented in this encounter Care Teams Radiation Technician Relationship Specialty Start Date End Date Janet Davey APRN PCP - General Family Medicine 07/13/20 [address] [place] [address] documented as of this encounter
--- OUTSIDE RECORDS SUMMARY | 2022-04-19 15:17 | XMS_ITS | Encounter Summary ---
:1965 Author Organization [place] [address] Care Team Providers Name Role Phone Janet Davey APRN Primary Care Provider Reason for Referral Diagnostic Test (Routine) - Closed Specialty Diagnoses / Procedures Referred By Contact Refer red To Contact Radiology Diagnoses Encounter for screening mammogram for breast cancer Janet Davey APRN [facility] Rad Mammography Procedures Mammo Screening Cad and Eddie Bilateral [address] [address] Referral ID Status Reason Start Date Expiration Date Visits V isits Requested Authorized [id number] Closed Specialty 09/12/2021 03/12/2023 1 1 Service Requested Reason for Visit Diagnostic Test (Routine) - Closed Specialty Diagnoses / Procedures Referred By Contact Refer red To Contact Radiology Diagnoses Encounter for screening mammogram for breast cancer Janet Davey APRN [facility] Rad Mammography Procedures Mammo Screening Cad and Eddie Bilateral [address] [address] Referral ID Status Reason Start Date Expiration Date Visits V isits Requested Authorized [id number] Closed Specialty 09/12/2021 03/12/2023 1 1 Service Requested Encounter Details Date Type Department Care Team Description 11/02/2021 Hospital Encounter Mammography/DXA at Janet Davey, En counter for [facility] MULTIPLE PRESSURE RIVETER OPERATOR screening mammogram [facility] Nick[address] for [facility] cancer Drive [address], [address] [place] [address] [phone] Social History Tobacco Use Types Packs/Day Years [...] spray 0 2016 mcg (0.1 %) Aerosol, [place] into each nostril twice a day SUMAtriptan [...] Hinojosa MD [facility] [address]MO[address] [place], [place] [address] (Wo rk) 07/13/2022 Office Visit Endocrinology Maile Hinojosa MD [facility] [address]MOLEJO [place], [place] [address] (Wo rk) documented as of this encounter Procedures Procedure Name Priority Date/Time Associated Diagnosis Comme nts MAMMO SCREENING CAD Routine 11/02/2021 2:23 PM Encounter for R esults for this AND EDDIE BILATERAL EST screening mammogram pr ocedure are in for breast cancer the result s section. documented in this encounter Results Mammo Screening Cad and Eddie Bilateral (11/02/2021 2:23 PM EST) Anatomical Region Laterality Modality Breast Bilateral Mammography Specimen (Source) Anatomical Location Collection Method / Collectio n Time Received Time / Laterality Volume Impressions 11/03/2021 8:58 AM EST Recommend directed ultrasound to confirm a cyst in the left upper inner quadrant 11:00 radian 7 cm from the nipple measur ing 0.6 cm. BI-RADS Category 0: Incomplete-Need Kyree tional Imaging Evaluation and/or Prior Mammograms for Comparison Our facility will contact the patient to arrange this follow-up imaging. Thank you for letting us participate in the care of this patient. ??If you are a health care provider and have any questi ons regarding this report, please contact the number below. ??For patients who have questions please contact the health body care manager that requested your imaging first. ? Electronically signed by: Genoveva crawley MD, [facility] ([phone]), at 11/03/2021 8:58 AM Narrative 11/03/2021 8:58 AM EST EXAMINATION: MAMMO SCREENING CAD AND EDDIE BILATERAL CLINICAL HISTORY: routine f/u 2.21 TECHNIQUE: CC and MLO views were obtaine d of each breast. 2-D and 3- D tomosynthesis images were obtained. Comp uter aided detection was used. COMPARISON: This study was compared with prior images. FINDINGS: The breasts are heterogeneously dense, w hich may obscure small masses. There is a circumscribed dense 0.7 cm ma ss in the left upper inner quadrant posterior third 11:00 radian 7 cm from t he nipple for which directed ultrasound is advised. This is in an area of a doris t fluctuating density but appears denser compared with prior studies. Incidental note is made of benign breast arterial calcification in the left lower outer qu adrant superimposed on long-term stability of amorphous calcifications co nsistent with a benign process. The right breast is normal. Janet Davey APRN IMG MAMMO ORDERABLES documented in this encounter Visit Diagnoses Diagnosis Encounter for screening mammogram for br east cancer documented in this encounter Care Teams Uke Driver Relationship Specialty Start Date End Date Janet Davey, MULTIPLE PRESSURE RIVETER OPERATOR PCP - General Family Medicine 07/13/20 [address] [place] [address] documented as of this encounter
--- OUTSIDE RECORDS SUMMARY | 2022-04-19 15:17 | XMS_ITS | Encounter Summary ---
:1965 Author Organization [facility] [place] [address] Care Team Providers Name Role Phone Janet Davey Isa GONCALVES Primary Care Provider Encounter Details Date Type Department Care Team Description 03/28/2022 Episode Changes Infectious Disease at [facility], Nisha costello [facility] Victor Manuel cifuentes [facility] [place] [address] INFECTIOUS DISEASE [phone] [place], [place] [address] (Wo rk) Social History Tobacco [...] Description 07/13/2022 Appointment Radiology Maile Hinojosa MD [facility] ER [address] [place], [place] [address] (Wo rk) 07/13/2022 Office Visit Endocrinology Maile Hinojosa MD [facility] ER ENDOCRINOLOGY [place], [place] [address] (Wo rk) documented as of this encounter Visit Diagnoses Not on filedocumented in this encounter Care Teams Ruby Software Developer Relationship Specialty Start Date End Date Janet Davey APRN PCP - General Family Medicine 07/13/20 [address] [place] [address] documented as of this encounter
--- OUTSIDE RECORDS SUMMARY | 2022-04-19 15:17 | XMS_ITS | Encounter Summary ---
:1965 Author Organization [facility] [place] [address] Care Team Providers Name Role Phone Petar Janet Isa GONCALVES Primary Care Provider Encounter Details Date Type Department Care Team Description 02/12/2022 Laboratory Appointment Lab 3L [facility] Hormone replacement [facility] therapy (HRT) [place] [id number] Social History Tobacco Use Types Packs/Day Years Used Date Never Smoker Smokeless Tobacco: Never Used Alcohol Use Standard Drinks/Week Comments No 0 (1 standard drink = 0.6 oz pure alcoho l) Sex Assigned at Date Recorded Female 01/29/2022 12:45 PM EDT documented as of this encounter Plan of Treatment Upcoming Encounters Date Type Specialty Care Team Description 07/13/2022 Appointment Radiology Maile Hinojosa MD [facility] DR MARMOLEJO [place], [place] [address] (Wo rk) 07/13/2022 Office Visit Endocrinology Maile Hinojosa MD [facility] DR MARMOLEJO [place], [place] [address] (Wo rk) documented as of this encounter Procedures Procedure Name Priority Date/Time Associated Diagnosis Comme [facility] VENIPUNCTURE Routine 02/12/2022 8:35 AM Hormone replacement Results for this EDT therapy (HRT) procedure are in the results section. documented in this encounter Results Lipid Panel (Reflex Direct LDL) (02/12/2022 8:35 AM EDT) athologist Signature Chol, Total 205 mg/dL [facility] Comment: Lower Risk: <200 mg/dL Average Risk: 200-239 mg/dL Higher Risk: >ew=232 mg/dL Triglycerides 86 mg/dL [facility] Comment: Average Risk/Lower Risk: <150 mg/dL Borderline High Risk: 150-199 mg/dL High Risk: 200-499 mg/dL Very High Risk: >uq=292 mg/dL HDL 75 mg/dL [facility] Comment: Males: ?? Higher Risk: <40 mg/dL Females: ?? Higher Risk: <50 mg/dL LDL Cholesterol 113 mg/dL [facility] Comment: Lowest Risk: <100 mg/dL Lower Risk: 100-129 mg/dL Borderline High Risk: 130-159 mg/dL High Risk: 160-189 mg/dL Very High Risk: >gm=902 mg/dL Chol/HDL Ratio 2.7 ratio [facility] Lipid Interpretation See Note [facility] Comment: Lipid management should be guided by a p atient? s ASCVD risk, goals and preferences. ACC/AHA Guidelines recommend high intens ity statin if clinical ASCVD or LDL greater than or equal to 190 mg/dL. http://Plink SearchurCirca.com/ALI-HVT-Rabhnxmmw Adults aged 40-75 with LDL 70-189 mg/dL should have their 10 year ASCVD risk estimated with the ACC/AHA ASCVD risk es timator http://tools.acc.org/QRUEG-Uoui-Ifrbpewe r/ Statin should be discussed if risk [...] Organization Address City/State/[place] [address] documented in this encounter Visit Diagnoses Diagnosis Hormone replacement therapy (HRT) documented in this encounter Care Teams Hand Rounder Relationship Specialty Start Date End Date Janet Davey APRN PCP - General Family Medicine 07/13/20 [address] [place] [address] documented as of this encounter
--- OUTSIDE RECORDS SUMMARY | 2022-04-19 15:17 | XMS_ITS | Encounter Summary ---
:1965 Author Organization [facility] [place] [address] Care Team Providers Name Role Phone Petar Janet Isa GONCALVES Primary Care Provider Reason for Visit Reason Comments Follow-up Encounter Details Date Type Department Care Team Description 08/04/2021 Office Visit Obstetrics and Lucy Shay Gynecology at [facility] MD Jeramie post-menopausal [facility] [address] [place], [place] OBSTETRICS & [phone] GYNECOLOGY [phone] [place], [place] [address] (Wo rk) Social History Tobacco [...] Stacy reports that neither she nor her Plating Foreman has an objection to goingdown to the [...] Description 07/13/2022 Appointment Radiology Maile Hinojosa MD [facility] MEDICAL [facility] ENDOCRINOLOGY [place], [place] [address] (Wo rk) 07/13/2022 Office Visit Endocrinology Maile Hinojosa MD [facility] ENDOCRINOLOGY [place], [place] [address] (Wo rk) documented as of this encounter Visit Diagnoses Diagnosis Osteoporosis, post-menopausal Senile osteoporosis documented in this encounter Care Teams Treasury Representative Relationship Specialty Start Date End Date Janet Davey APRN PCP - General Family Medicine 07/13/20 [address] [place] [address] documented as of this encounter
--- OUTSIDE RECORDS SUMMARY | 2022-04-19 15:17 | XMS_ITS | Encounter Summary ---
:1965 Author Organization [facility] [place] [address] Care Team Providers Name Role Phone EdJanet mendez Isa GONCALVES Primary Care Provider Encounter Details Date Type Department Care Team Description 12/05/2021 Telephone Obstetrics and Gynecology Paty Shepard, at [facility] [place] [address] OBSTETRICS & GYNECOLOGY [phone] [place], [place] [address] (Wo rk) Social History Tobacco [...] if she can do fasting labs in [facility], or day of the appointment. I [...] Plan above reviewed with Dr. Zabala, attending alarm service technician. Lucy Shepard MD PGY2 Applications Architect documented in this encounter Plan of Treatment Upcoming Encounters Date Type Specialty Care Team Description 07/13/2022 Appointment Radiology Maile Hinojosa MD [facility] ENDOCRINOLOGY [place], [place] [address] (Wo rk) 07/13/2022 Office Visit Endocrinology Maile Hinojosa MD [facility] DR [place]EL [place], [place] [address] (Wo rk) documented as of this encounter Results Lipid Panel (Reflex Direct LDL) (02/12/2022 8:35 AM EDT) athologist Signature Chol, Total 205 mg/dL [facility] Comment: Lower Risk: <200 mg/dL Average Risk: 200-239 mg/dL Higher Risk: >cj=656 mg/dL Triglycerides 86 mg/dL [facility] Comment: Average Risk/Lower Risk: <150 mg/dL Borderline High Risk: 150-199 mg/dL High Risk: 200-499 mg/dL Very High Risk: >wp=330 mg/dL HDL 75 mg/dL [facility] Comment: Males: ?? Higher Risk: <40 mg/dL Females: ?? Higher Risk: <50 mg/dL LDL Cholesterol 113 mg/dL [facility] Comment: Lowest Risk: <100 mg/dL Lower Risk: 100-129 mg/dL Borderline High Risk: 130-159 mg/dL High Risk: 160-189 mg/dL Very High Risk: >mn=021 mg/dL Chol/HDL Ratio 2.7 ratio [facility] Lipid Interpretation See Note [facility] Comment: Lipid management should be guided by a p atient? s ASCVD risk, goals and preferences. ACC/AHA Guidelines recommend high intens ity statin if clinical ASCVD or LDL greater than or equal to 190 mg/dL. http://NutriVentures.com/VFS-UES-Uvsbijdxm Adults aged 40-75 with LDL 70-189 mg/dL should have their 10 year ASCVD risk estimated with the ACC/AHA ASCVD risk es timator http://tools.acc.org/BQZXO-Plsw-Qxesauyy r/ Statin should be discussed if risk [...] Organization Address City/State/[place] [address] documented in this encounter Visit Diagnoses Diagnosis Hot flashes, menopausal Symptomatic menopausal or female climact [place] Hormone replacement therapy (HRT) documented in this encounter Care Teams Mental Health Program Manager Relationship Specialty Start Date End Date Janet Davey APRN PCP - General Family Medicine 07/13/20 [address] [place] [address] documented as of this encounter
--- OUTSIDE RECORDS SUMMARY | 2022-04-19 15:17 | XMS_ITS | Encounter Summary ---
:1965 Author Organization [place] [address] Care Team Providers Name Role Phone EdJanet mendez Isa GONCALVES Primary Care Provider Encounter Details Date Type Department Care Team Description 12/07/2021 Orders Only Obstetrics and Lucy Shepard, [facility]necology at [facility] Azalea Hinton MD menopausal [facility] [address] [place], [place] OBSTETRICS & [phone] GYNECOLOGY [phone] [place], [place] [address] (Wo rk) Social History Tobacco [...] Description 07/13/2022 Appointment Radiology Maile Hinojosa MD [facility] ER DR [place]EL [place], [place] [address] (Wo rk) 07/13/2022 Office Visit Endocrinology Maile Hinojosa MD [facility] ER DR [place]EL [place], [place] [address] (Wo rk) Scheduled Orders Name Type Priority Associated Diagnoses Order S chedule Lipid Panel (Reflex Lab Routine Hot flashes, menopaus al Expected: 12/07/2021 Direct LDL) (Approximate), Expires: 12/07/2022 documented as of this encounter Visit Diagnoses Diagnosis Hot flashes, menopausal Symptomatic menopausal or female climact [place] documented in this encounter Care Teams Laborer Wrecking And Salvaging Relationship Specialty Start Date End Date Janet Davey APRN PCP - General Family Medicine 07/13/20 [address] [place] [address] documented as of this encounter
--- OUTSIDE RECORDS SUMMARY | 2022-04-19 15:17 | XMS_ITS | Encounter Summary ---
:1965 Author Organization [facility] [place] [address] Care Team Providers Name Role Phone Janet Davey Isa GONCALVES Primary Care Provider Encounter Details Date Type Department Care Team Description 09/25/2021 Orders Only Endocrinology at [facility] Maile Mccurdy MD Hypercalciuria [facility] [place] [address] ENDOCRINOLOGY [place], [place] [address] (Rahul rk) Social History Tobacco Use Types Packs/Day [...] Description 07/13/2022 Appointment Radiology Maile Hinojosa MD [facility] ER DR MARMOLEJO [place], [place] [address] (Wo rk) 07/13/2022 Office Visit Endocrinology Maile Hinojosa MD [facility] DR [address]MO[address] [place], [place] [address] (Wo rk) Scheduled Orders Name Type Priority Associated Diagnoses Order S chedule Calcium, urine, 24 hour Lab Routine Hypercalciuria Ex pected: 09/25/2021, Expires: 2021 Creatinine, urine, 24 Lab Routine Hypercalciuria Expe cted: 09/25/2021, hour Expires: 2021 documented as of this encounter Visit Diagnoses Diagnosis Hypercalciuria Unspecified disorders of calcium metabol ism documented in this encounter Care Teams Mathematical Statistician Relationship Specialty Start Date End Date Janet Davey APRN PCP - General Family Medicine 07/13/20 [address] [place] [address] documented as of this encounter
--- OUTSIDE RECORDS SUMMARY | 2022-04-19 15:17 | XMS_ITS | Encounter Summary ---
:1965 Author Organization [facility] [place] [address] Care Team Providers Name Role Phone EdJanet mendez Isa GONCALVES Primary Care Provider Reason for Referral Diagnostic Test (Routine) - Authorized Specialty Diagnoses / Procedures Referred By Contact Refer red To Contact Radiology Diagnoses Osteoporosis, unspecified osteoporosis type, unspecified pathological fracture presence Maile Hinojosa MD [facility] Rad Xray Procedures DXA Central Spine, Hip, and/or Whole Body (Generic) [facility] [address] [place] [address] [place] [address] [place] [address] Referral ID Status Reason Start Expiration Visits Visits Date Date Requested Authorized [id number] Authorized Specialty 12/08/2022 1 1 Service 1 Requested Encounter Details Date Type Department Care Team Description 06/09/2021 Office Visit Endocrinology at [facility] Maile Mccurdy, Osteoporosis, [facility] unspecified Drive [facility] osteoporosis type, [place] [address] CENTER unspecyoselyn [phone] ENDOCRINOLOGY pathological fracture [place], [place] [address] presence Social History Tobacco Use Types [...] Davey APRN 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 She was previously seen by 06/2020. She has had 3 episodes of kidney stones, does not remember when was a last one, in pathology I see one in 2009. Has been on ERT for a long time, and tells me that her new PARTS PROCESSOR wants to decrease or stop it. She [...] [] 701-900 mg [] 901-1100 mg [] 7865-4409 mg [] 5000-8397 mg [] Above 1500 mg Medications: Current [...] azelastine (ASTELIN) 137 mcg (0.1 %) Aerosol, [place] instill 1 spray into each nostril twice [...] History Narrative with 3 children. Lives in [place], [place]. 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 Eats relatively healthy with fruits, vegetables, yogurt, and milk; minimal meat. Eats 3 meals per day, does not drink tea or coffee, and occasionally drinks soda.Her youngest is 19 yrs old, in college in [place]. The other two are out of the [...] Maile Hinojosa MD [facility] ENDOCRINOLOGY [place], [place] [address] (Wo rk) 07/13/2022 Office Visit Endocrinology Maile Hinojosa MD [facility] ENDOCRINOLOGY [place], [place] [address] (Wo rk) Scheduled Orders Name [...] encounter Results Calcium (06/09/2021 4:57 PM EDT) P athologist Signature Calcium 9.0 8.5 - 10.5 [place] mg/dL LABORATORY Specimen Anatomical Collection Method Collection Time Receive d Time (Source) Location / / Volume Laterality Blood 06/09/2021 4:57 PM 1 5:05 EDT PM EDT Resulting Agency Comment Spec In Lab Maile Hinojosa MD CHEMISTRY ORDERABLES Performing Organization Address City/[facility]/ZIP Code Phon e Number [address] PTH (06/09/2021 4:57 PM EDT) P athologist Signature PTH 59 15 - 65 [place] pg/mL LABORATORY Specimen Anatomical Collection Method Collection Time Receive d Time (Source) Location / / Volume Laterality Blood 06/09/2021 4:57 PM 1 5:05 EDT PM EDT Resulting Agency Comment Spec In Lab Maile Hinojosa MD CHEMISTRY ORDERABLES Performing Organization Address City/[facility]/ZIP [place] [address] Collagen Type I C-Telopeptide (06/09/2021 4:57 PM EDT) P athologist Signature CTX 283 pg/mL [facility] Comment: ?Unable to flag [...] loss. For additional information, please refer to https://education.NexGen Storage/f aq/SFX714 (This link is being provided for informa tional/ educational purposes only.) Test Performed by [employer], [facility], [address] [place] [address] 2014 08 Omar Kate M.D., Ph.D., Director [place] , [place] [id number] Specimen Anatomical Collection Method Collection Time Receive d Time (Source) Location / / Volume Laterality Blood 06/09/2021 4:57 PM 1 EDT 12:14 PM EDT Resulting Agency Comment Spec In Lab Maile Hinojosa MD CHEMISTRY ORDERABLES Performing Organization Address City/State/ZIP [place] [address] documented in this encounter Visit Diagnoses Diagnosis Osteoporosis, unspecified osteoporosis t ype, unspecified pathological fracture presence documented in this encounter Care Teams Manager Style Relationship Specialty Start Date End Date Janet Davey APRN PCP - General Family Medicine 07/13/20 [address] [place] [address] documented as of this encounter
--- OUTSIDE RECORDS SUMMARY | 2022-04-19 15:17 | XMS_ITS | Encounter Summary ---
:1965 Author Organization [facility] [place] [address] Care Team Providers Name Role Phone Petar Janet Isa GONCALVES Primary Care Provider Encounter Details Date Type Department Care Team Description 11/10/2021 Hospital Encounter M[place]ography [place] [facility] [place], Abnormal finding on [facility] Genoveva Tristan MD breast imaging [facility] [address] DIAGNOSTIC [phone] [place] [address] Social History Tobacco Use Types Packs/Day Years [...] spray 0 2016 mcg (0.1 %) Aerosol, [place] into each nostril twice a day SUMAtriptan [...] Hinojosa MD [facility] ENDOCRINOLOGY [place], [place] [address] (Wo rk) 07/13/2022 Office Visit Endocrinology Maile Hinojosa MD [facility] ENDOCRINOLOGY [place], [place] [address] (Wo rk) documented as of [...] with their provider to determine their preferred [facility] cancer screening schedule. * ??Women should report [...] who have questions please contact the health manager medicare that requested your imaging first. ? Narrative 11/10/2021 1:35 PM EDT EXAMINATION: US [...] breast documented in this encounter Care Teams Steward Dishwasher Relationship Specialty Start Date End Date Jnaet Davey APRN PCP - General Family Medicine 07/13/20 [address] [place] [address] documented as of this encounter
--- OUTSIDE RECORDS SUMMARY | 2022-04-19 15:17 | XMS_ITS | Encounter Summary ---
:1965 Author Organization [facility] [place] [address] Care Team Providers Name Role Phone Petar Janet Moss APRN Primary Care Provider Encounter Details Date Type Department Care Team Description 01/09/2021 Hospital Encounter Ultrasound at [facility] Saul Graham Endometrial polyp [facility] H, [place] [address] [place] [address] [phone] Social History Tobacco Use Types Packs/Day Years [...] (0.1 %) Aerosol, each nostril twice a [place] day SUMAtriptan (IMITREX) as needed for 1 [...] 05/01/2016 05/01/2021 20 mcg/24 hr (5 years) [id number] IUD cetirizine (ZYRTEC) 10 Take 10 mg by mouth 0 02/12/2022 mg tablet daily. tacrolimus (PROTOPIC) 1 Appl(s) Top Twice 0 08/2402/12/2022 0.1 % ointment daily KETOCONAZOLE (NIZORAL Apply topically. 0 08/24/20 10 02/12/2022 TOP) documented as of this encounter Plan of Treatment Upcoming Encounters Date Type Specialty Care Team Description 07/13/2022 Appointment Radiology Maile Hinojosa MD [facility] ENDOCRINOLOGY [place], [place] [address] (Wo rk) 07/13/2022 Office Visit Endocrinology Maile Hinojosa MD [facility] ER DR MARMOLEJO [place], [place] [address] (Wo rk) documented as of [...] questions please contact the health health care marketing manager that requested your imaging first. Electronically signed by: Genie Carrasco MD, [facility] ([phone]), at 2:23 PM Thank you for letting [...] 02:30 pm) PATIENT INFO: ID #: ? [id number] ?: ??[birth year] (55 yrs)(F) Name: ? JESSICA GTZ ?Visit Date: 01/09/2021 01:51 pm PERFORMED BY: Performed By: ? Floridalma GARNER, Keya cardenas Attending: ?Luna GILL, Genie Dumont Referred By: ?SAUL Eddy Location: ? [place] SERVICE(S) PROVIDED: UTV - Transvaginal - [id number] ?[id number] U3D - ??3D rendering with interpretatio n - [id number] ? [id number] INDICATIONS: ? polyp TECHNIQUE/SCAN QUALITY: Technique: ?Transducer [...] 12/24 02:30 pm) PATIENT INFO: ID #: [id number] : [birth year] (55 y rs)(F) Name: JESSICA GTZ Visit Date: 01/09 01:51 pm PERFORMED BY: Performed By: Chetna Hedrick RDMS Attending: Genie Carrasco MD Referred By: SAUL GRAHAM Location: [place] SERVICE(S) PROVIDED: UTV - Transvaginal - [id number] U3D - 3D rendering with interpretation - [id number] INDICATIONS: ? polyp TECHNIQUE/SCAN QUALITY: Technique: Transducer [...] questions please contact the health health care marketing manager that requested your imaging first. Electronically signed by: Genie Carrasco MD, [facility] ([phone]), at 2:23 PM Thank you for letting us participate in the care of this patient. If you are a health care provid er and have any questions regarding this report, please contact the number below. For patients who have ques tions, please contact the health care professio [facility] that requested your imaging first. Genie Carrasco, Staff Physician Electronically Signed Final Report 01/09 02:30 pm Saul H Gladys CNAntoinette IMG US PELVIC ORDERABLES documented in this encounter Visit Diagnoses Diagnosis Endometrial polyp Polyp of corpus uteri documented in this encounter Care Teams Consultant Rn Relationship Specialty Start Date End Date Janet Davey APRN PCP - General Family Medicine 07/13/20 [address] [place] [address] documented as of this encounter
--- OUTSIDE RECORDS SUMMARY | 2022-04-19 15:17 | XMS_ITS | Encounter Summary ---
:1965 Author Organization [facility] [place] [address] Care Team Providers Name Role Phone Janet Davey APRN Primary Care Provider Encounter Details Date Type Department Care Team Description 10/21/2020 Hospital Encounter Mammography/DXA at Janet Davey, En counter for [facility] screening mammogram [facility] [address] [facility] [address], [address] [place] [id number] Social History Tobacco Use Types Packs/Day Years [...] (0.1 %) Aerosol, each nostril twice a [place] day SUMAtriptan (IMITREX) as needed for 1 [...] 05/01/2016 05/01/2021 20 mcg/24 hr (5 years) [id number] IUD cetirizine (ZYRTEC) 10 Take 10 mg by mouth 0 02/12/2022 mg tablet daily. tacrolimus (PROTOPIC) 1 Appl(s) Top Twice 0 08/2402/12/2022 0.1 % ointment daily KETOCONAZOLE (NIZORAL Apply topically. 0 08/24/20 10 02/12/2022 TOP) documented as of this encounter Plan of Treatment Upcoming Encounters Date Type Specialty Care Team Description 07/13/2022 Appointment Radiology Maile Hinojosa MD [facility] END[facility]Y [place], [place] [address] (Wo rk) 07/13/2022 Office Visit Endocrinology Maile Hinojosa MD [facility] ENDOCRINOLOGY [place], [place] [address] (Wo rk) documented as of [...] with their provider to determine their preferred east cancer screening schedule. * ??Women should [...] report, please contact e number below. ? Electronically signed by: Shane Burciaga MD, [facility] ([phone]), at 10/24/2020 10:53 AM Janet Davey APRN IMG MAMMO ORDERABLES documented in this encounter Visit Diagnoses Diagnosis Encounter for screening mammogram for br east cancer documented in this encounter Care Teams Drywall Taper Helper Relationship Specialty Start Date End Date Janet Davey APRN PCP - General Family Medicine 07/13/20 [address] [place] [address] documented as of this encounter
--- OUTSIDE RECORDS SUMMARY | 2022-04-19 15:17 | XMS_ITS | Encounter Summary ---
:1965 Author Organization [facility] [address] Care Team Providers Name Role Phone Edvanessa Janet Vanessa GONCALVES Primary Care Provider Encounter Details Date Type Department Care Team Description 12/15/2020 Orders Only Obstetrics and Saul Graham, Endo metrial polyp Gynecology at [facility] [place] [address] [place] [address] [phone] Social History Tobacco Use Types Packs/Day Years [...] 07/13/2022 Appointment Radiology Maile Hinojosa MD [facility] ER DR JALEEL [place] [address] (Wo rk) 07/13/2022 Office Visit Endocrinology Maile Hinojosa MD [facility] ER DR JALEEL [place] [address] (Wo rk) documented as of this [...] who have questions please contact the health care worker that requested your imaging first. Electronically signed by: Genie Carrasco MD, [facility] ([phone]), at 2:23 PM Thank you for letting us participate in the care of this patient. If you are a health care provid er and have any questions regarding this report, please contact the number below. For patients who have ques tions, please contact the [facility] care professio nal that requested your imaging first. ? Genie Carrasco, Staff Physician Electronically Signed Final Report ?? 02:30 pm Narrative 01/09/2021 2:30 PM EDT Gynecological Report ?(Signed Final 01/09/2021 02:30 pm) PATIENT INFO: ID #: ? [id number] ?: ??[birth year] (55 yrs)(F) Name: ? JESSICA GTZ ?Visit Date: 01/09/2021 01:51 pm PERFORMED BY: Performed By: ? Keya Hedrick RDMS Attending: ?Luna GILL, Genie Dumont Referred By: ?SAUL Eddy Location: ? [place] SERVICE(S) PROVIDED: UTV - Transvaginal - [id number] ?[id number] U3D - ??3D rendering with interpretatio n - [id number] ? [id number] INDICATIONS: ? polyp TECHNIQUE/SCAN QUALITY: Technique: ?Transducer [...] 12/24 02:30 pm) PATIENT INFO: ID #: [id number] : [birth year] (55 y rs)(F) Name: JESSICA GTZ Visit Date: 01/09 01:51 pm PERFORMED BY: Performed By: Chetna Hedrick RDMS Attending: Genie Carrasco MD Referred By: SAUL GRAHAM Location: [place] SERVICE(S) PROVIDED: UTV - Transvaginal - [id number] 69319 U3D - 3D rendering with interpretation - [id number] INDICATIONS: ? polyp TECHNIQUE/SCAN QUALITY: Technique: Transducer [...] who have questions please contact the health care worker that requested your imaging first. Electronically signed by: Genie Carrasco MD, [facility] ([phone]), at 2:23 PM Thank you for letting us participate in the care of this patient. If you are a health care provid er and have any questions regarding this report, please contact the number below. For patients who have ques tions, please contact the [facility] care professio nal that requested your imaging first. Genie Carrasco, Staff Physician Electronically Signed Final Report 01/09 02:30 pm Saul Graham CN IMG US PELVIC ORDERABLES documented in this encounter Visit Diagnoses Diagnosis Endometrial polyp Polyp of corpus uteri Endometrial polyp Polyp of corpus uteri documented in this encounter Care Teams Supervisor Engine Assembly Relationship Specialty Start Date End Date Janet Davey APRN PCP - General Family Medicine 07/13/20 [address] [place] [address] documented as of this encounter
--- OUTSIDE RECORDS SUMMARY | 2022-04-19 15:17 | XMS_ITS | Encounter Summary ---
:1965 Author Organization [facility] [place] [address] Care Team Providers Name Role Phone PetarJanet Isa GONCALVES Primary Care Provider Encounter Details Date Type Department Care Team Description 06/12/2021 Telephone Obstetrics and [place]necology [place] [address] Social History Tobacco Use Types Packs/Day [...] to discuss her visit with her director financial analysis. Stacy was last seenon 01/09/[address] Lucy Shepard where they dicussed recommendation to stop HRT. When Stacy went to her director financial analysis on 06/09 they recommended reducing dose of HRT per patient. Per chart review of this visit the endocrine team recommended this dose reduction instead of discontinuation to help her bones. Patient asking for this medication change and follow up on need for Mirena IUD thatis currently in place. Patient requests plan via [employer] message. Will route this encounter to her provider team. Telephone Encounter - Sydney Silva RN - 06/12/2021 1:54 PM EDT ----- Message from Jeanette Lopez sent at 06/12/2021 1:32 PM EDT ----- Regarding: Next Step Caller's name: Stacy Albright Call back #: [phone] Patient's provider/team: Dr Kumar Reason for call: Please refer to Dr Kumar's note 01/09/21 she has gone to the Osteoporosis Doctorand would like to know what is the next step? documented in this encounter Plan of Treatment Upcoming Encounters Date Type Specialty Care Team Description 07/13/2022 Appointment Radiology Maile Hinojosa MD [facility] ER ENDOCRINOLOGY [place], [place] [address] (Wo rk) 07/13/2022 Office Visit Endocrinology Maile Hinojosa MD [facility] ENDOCRINOLOGY [place], [place] [address] (Wo rk) documented as of this encounter Visit Diagnoses Not on filedocumented in this encounter Care Teams Analytical Lab Technician Relationship Specialty Start Date End Date Janet Davey APRN PCP - General Family Medicine 07/13/20 [address] [place] [address] documented as of this encounter
--- OUTSIDE RECORDS SUMMARY | 2022-04-19 15:17 | XMS_ITS | Encounter Summary ---
:1965 Author Organization [facility] [place] [address] Care Team Providers Name Role Phone EdJanet mendez Isa GONCALVES Primary Care Provider Encounter Details Date Type Department Care Team Description 08/17/2021 Telephone Endocrinology at [facility] C Romy Rich, [place] [address] Social History Tobacco Use Types Packs/Day [...] copy be faxed. Electronically routed request to [phone] documented in this encounter Plan of Treatment Upcoming Encounters Date Type Specialty Care Team Description 07/13/2022 Appointment Radiology Maile Hinojosa MD [facility] ER DR ENDOCRINOLOGY [place], [place] [address] (Wo rk) 07/13/2022 Office Visit Endocrinology Maile Hinojosa MD [facility] ER ENDOCRINOLOGY [place], [place] [address] (Wo rk) documented as of this encounter Visit Diagnoses Not on filedocumented in this encounter Care Teams Grain Elevator Superintendent Relationship Specialty Start Date End Date Janet Davey APRN PCP - General Family Medicine 07/13/20 [address] [place] [address] documented as of this encounter
--- OUTSIDE RECORDS SUMMARY | 2022-04-19 15:18 | XMS_ITS | Encounter Summary ---
:1965 Author Organization [facility] [place] [address] Care Team Providers Name Role Phone Suzie Mcintyre APRN Primary Care Provider Encounter Details Date Type Department Care Team Description 04/18/2017 Hospital Encounter Same Day Program at [facility] Nephrolithiasis Marley Painter Jr., MD [facility] [address] Camacho UROLOGY DEPT. [place] [phone] [phone] Social History Tobacco Use Types Packs/Day Years [...] directed NASONEX 50 mcg/actuation 0 05/18/2016 06/11/2018 [place], Non-Aerosol levonorgestrel (MIRENA) 1 each by Intrauterine route once. Lot [id number] 0 05/01/2016 05/01/2021 20 mcg/24 hr (5 years) [id number] IUD omeprazole (PRILOSEC) 20 PRN 0 03/22/2016 [...] 1965 Attending Provider: Luis Michael Jr., MD Joannmeghan Albright is a 51 y.o. female with [...] 8 patch 11 ??? NASONEX 50 mcg/actuation [place], Non-Aerosol 0 ??? SUMAtriptan (IMITREX) 100 mg Tablet as needed for Migraine. 1 ??? levonorgestrel (MIRENA) 20 mcg/24 hr (5 years) IUD 1 each by Intrauterine route once. Lot [id number] ??? multivitamin (THERAGRAN) tablet Take 1 tablet [...] Perez MD - 04/18/2017 1:31 PM EDT [facility] Operative Note Patient Name: Stacy Albright : [id number] MR#: [id number] Case Date: 04/18/2017 Surgeon: Surgeon(s) and Role: [...] orifices werenoted to be in orthotopic position. Marberger biopsy forceps were used to resect the [...] Operative Note Patient Name: Stacy Albright : [id number] MR#: [id number] Case Date: 04/18/2017 Surgeon: Surgeon(s) and Role: [...] Radiology Maile Hinojosa MD [facility] [address] [place] [address] (Wo rk) 07/13/2022 Office Visit Endocrinology Maile Hinojosa MD [facility] [address] [place] [address] (Wo rk) documented as of [...] Component Value Ref Test Analysis Performed At [facility] Range Method Time Signature Surgical [id number] ? Location: [facility]; [facility] Report The signing pathologist has (i) examined the relevant preparation(s) for the [facility] specimen(s) and (ii) rendered or confirmed the [...] Organization Address City/State/[place] [address] Specimen to Pathology (surgical [...] Organization Address City/State/[place] [address] documented in this encounter [...] Provider: Romy Ballesteros MD) 2 g, Intravenous, LOFT WORKER PILE DRIVING TO O.R., 1 dos e, Shanta 04/18/17 [...] Routine documented in this encounter Care Teams Blister Rust Eradicator Relationship Specialty Start Date End Date Suzie Mcintyre APRN PCP - General Family Medicine 02/28/17 06/26/17 documented as of this encounter
--- OUTSIDE RECORDS SUMMARY | 2022-04-19 15:18 | XMS_ITS | Encounter Summary ---
:1965 Author Organization [facility] [place] [address] Care Team Providers Name Role Phone Doreen Larios Primary Care Provider [phone] Encounter Details Date Type Department Care Team Description 06/11/2018 Hospital Encounter Ultrasound at [facility] Ferdinand [place] Nephrolithiasis [facility] [place] [address] UR[address] DEPT. [phone] [place], [place] [address] Social History Tobacco Use Types [...] (0.1 %) Aerosol, each nostril twice a [place] day SUMAtriptan (IMITREX) as needed for 1 [...] 05/01/2016 05/01/2021 20 mcg/24 hr (5 years) [id number] IUD omeprazole (PRILOSEC) 20 PRN 0 03/22/2016 [...] Hinojosa MD [facility] ENDO[facility]OLOGY [place], [place] [address] (Wo rk) 07/13/2022 Office Visit Endocrinology Maile Hinojosa MD [facility] ER DR ENDOCRINOLOGY [place], [place] [address] (Wo rk) documented as of [...] 03:13 pm) PATIENT INFO: ID #: ? [id number] ?: ??[birth year] (52 yrs) Name: ? JESSICA Charles GTZ ?Visit Date: 06/11/2018 03:00 pm PERFORMED BY: Performed By: ? Keya Hedrick RDMS Attending: ?Mallika Galindo MD. Referred By: ?FERDINAND GAOMelvin OLMEDO Location: ? [place] SERVICE(S) PROVIDED: ??URETRO - Retroperitoneal Complete - I [id number] ? [id number] INDICATIONS: ??h/o renal stones; eval interval laird [...] 03:13 pm ) PATIENT INFO: ID #: [id number] : [birth year] (52 y rs) Name: JESSICA GTZ Visit Date: 06/11 03:00 pm PERFORMED BY: Performed By: Mellissa Hedrick RDMSgail Attending: Mallika Galindo MD Referred By: FERDINAND PENNINGTON Location: [place] SERVICE(S) PROVIDED: URETRO - Retroperitoneal Complete - [facility] 3517 [id number] INDICATIONS: h/o renal stones; eval interval change [...] kidney documented in this encounter Care Teams Drill Presser Relationship Specialty Start Date End Date Doreen Larios PA PCP - General Family Medicine 05/16/18 06/22/18 documented as of this encounter
--- OUTSIDE RECORDS SUMMARY | 2022-04-19 15:18 | XMS_ITS | Encounter Summary ---
:1965 Author Organization [facility] Address [address] [facility] [address] [place] [address] Care Team Providers Name Role Phone Sarah Young APRN Primary Care Provider [phone] Encounter Details Date Type Department Care Team Description 06/27/2017 Hospital Encounter XRay at [facility] [place], Osteoporosis, [address] [place] unspecified [place], [place], [address] funes [phone] ENDOCRINOLOGY pathological [place] presence [address] Social History Tobacco Use [...] (0.1 %) Aerosol, each nostril twice a [place] day SUMAtriptan (IMITREX) as needed for 1 [...] morning. NASONEX 50 mcg/actuation 0 05/18/2016 06/11/2018 [place], Non-Aerosol levonorgestrel (MIRENA) 1 each by Intrauterine route once. Lot tu01 8ac 0 05/01/2016 05/01/2021 20 mcg/24 hr (5 years) [id number] IUD omeprazole (PRILOSEC) 20 PRN 0 03/22/2016 [...] Hinojosa MD [facility] [address] [place], [place] [address] (Wo rk) 07/13/2022 Office Visit Endocrinology Maile Hinojosa MD [facility] [address] [place] [address] (Wo rk) documented as of [...] measurements an d plots are available in [facility] under the imaging tab. Paper copies will be sent to providers without E- access. If you have received this report without th e data sheet and do not have access to [employer], please contact Radiology Transcrip tion at [phone] Saturday thru Saturday 8am-4pm. Narrative 06/27/2017 4:50 [...] icant change. The measured changes in comparison [facility] study are not large enough in magnitude [...] signif icant change. The measured changes in [facility] study are not large enough in magnitude [...] measurements an d plots are available in E- under the imaging tab. Paper copies will be sent to providers without E- access. If you have received this report without th e data sheet and do not have access to [employer], please contact Radiology Transcrip tion at [phone] Saturday thru Saturday 8am-4pm. [place] MD IMAna DEXA ORDERABLES documented in this encounter Visit Diagnoses Diagnosis Osteoporosis, unspecified osteoporosis t ype, unspecified pathological fracture presence documented in this encounter Care Teams Dip Dyer Relationship Specialty Start Date End Date Sarah Young APRN PCP - General Family Medicine 06/27/17 05/15/18 [address] [place] [address] documented as of this encounter
--- OUTSIDE RECORDS SUMMARY | 2022-04-19 15:18 | XMS_ITS | Encounter Summary ---
:1965 Author Organization [facility] [place] [address] Care Team Providers Name Role Phone Petar Janet Moss CORRESPONDENCE RENEW CLERK Primary Care Provider Reason for Visit Reason Comments Annual Exam Encounter Details Date Type Department Care Team Description 10/20/2019 Office Visit Obstetrics and Ida Ron, Menopause ; Gynecology at [facility] CORRESPONDENCE RENEW CLERK Encounter for gynecological examination without abnormal finding Pending sale to [facility] [address] [place] OBSTETRICS & [id number] GYNECOLOGY [phone] [place], [place] [address] Social History Tobacco Use Types [...] in this encounter Progress Notes Sarah Nieto - 10/20/2019 3:20 PM EST S: Pt [...] R frozen shoulder and rotator cuff repair FASTENER SEWING MACHINE OPERATOR hx: Pt reports occasional spotting. Does not [...] performed by Luis Michael Jr., MD at [facility] MAIN OR ??? SHOULDER SURGERY [...] on phone: None Gets together: None Attends muslim service: None Active member of club or organization: None Attends meetings of clubs or organizations: None Relationship status: None ??? Intimate partner violence Fear of current or ex partner: None Emotionally abused: None Physically abused: None Forced sexual activity: None Other Topics Concern ??? None Social History Narrative with 3 children. Lives in [place], [place]. 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 Eats relatively healthy with fruits, vegetables, yogurt, and milk; minimal meat. Eats 3 meals per day, does not drink tea or coffee, and occasionally drinks soda.Her youngest is 19 yrs old, in college in [place]. The other two are out of the [...] azelastine (ASTELIN) 137 mcg (0.1 %) Aerosol, [place] instill 1 spray into each nostril twice a day 0 ??? LINZESS 145 mcg Capsule 145 mg every other day. 0 ??? linaclotide (LINZESS) 72 mcg Capsule Take 72 mcg by mouth every other day. ??? SUMAtriptan (IMITREX) 100 mg Tablet as needed for Migraine. 1 ??? levonorgestrel (MIRENA) 20 mcg/24 hr (5 years) IUD 1 each by Intrauterine route once. Lot [id number] ??? 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 CREATED BY INTERFACE Cathy(TextPayMe) Procedure Date: 01/16/2008 ??? KNEE SURGERY 03/01/14 Right knee; patella surgery ??? LITHOTRIPSY ? ? PRO CYSTOURETHROSCOPY, FULGUR <.5CM LESN N/A 04/18/2017 CYSTO, FULGURATION\BLADDER LESION\W\WO BX\LESS THAN 0.5CM (WRVU 4.05) performed by Luis Michael Jr., MD at [facility] MAIN OR ??? SHOULDER SURGERY Right 07/2019 FASTENER SEWING MACHINE OPERATOR History: Pt is a 54??year old G [...] file Gets together: Not on file Attends muslim service: Not on file Active member of [...] History Narrative with 3 children. Lives in [place], [place]. 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 Eats relatively healthy with fruits, vegetables, yogurt, and milk; minimal meat. Eats 3 meals per day, does not drink tea or coffee, and occasionally drinks soda.Her youngest is 19 yrs old, in college in [place]. The other two are out of the house. She is very involved with her sons family that has lots of psycho social issues, her sons is bipolar, back issue, they have one child together, she had 3 in a previous relationship. She has not gone for counseling. Utility Porter Screener 10/20/2019 Hit,kicked,punched or hurt in past [...] azelastine (ASTELIN) 137 mcg (0.1 %) Aerosol, [place] instill 1 spray into each nostril twice a day 0 ??? LINZESS 145 mcg Capsule 145 mg every other day. 0 ??? linaclotide (LINZESS) 72 mcg Capsule Take 72 mcg by mouth every other day. ??? SUMAtriptan (IMITREX) 100 mg Tablet as needed for Migraine. 1 ??? levonorgestrel (MIRENA) 20 mcg/24 hr (5 years) IUD 1 each by Intrauterine route once. Lot [id number] ??? hydrocortisone (WESTCORT) 0.2 % Cream Apply [...] confirms, good tone, no hemorrhoids A: Unremarkable chief engineer research exam Probably menopausal spotting with Mirena and estradiol P: FSH pending documented in this encounter Plan of Treatment Upcoming Encounters Date Type Specialty Care Team Description 07/13/2022 Appointment Radiology Maile Hinojosa MD [facility] ENDOCRINOLOGY [place], [place] [address] (Wo rk) 07/13/2022 Office Visit Endocrinology Maile Hinojosa MD [facility] ER ENDOCRINOLOGY [place] [id number] (Wo rk) documented as of this encounter Procedures Procedure Name Priority Date/Time Associated Diagnosis Comme nts VENIPUNCTURE Routine 10/20/2019 4:16 PM Menopause Result s for this EST procedure are i n the results section. documented in this encounter Results Follicle Stimulating Hormone (10/20/2019 4:16 PM EST) P athologist Signature FSH 40.8 mlU/ML [facility] Comment: Reference Ranges Male: ? [...] Resulting Agency Comment Spec In Lab Ida Ron APRN CHEMISTRY ORDERABLES Performing Organization Address City/State/ZIP [place] [address] documented in this encounter Visit Diagnoses Diagnosis Menopause Asymptomatic postmenopausal status (age- related) (natural) Encounter for gynecological examination without abnormal finding Routine gynecological examination documented in this encounter Care Teams Engineer Station Mainline Relationship Specialty Start Date End Date Janet Davey APRN PCP - General Family Medicine 06/23/18 07/12/20 [address] [place] [address] documented as of this encounter
--- OUTSIDE RECORDS SUMMARY | 2022-04-19 15:18 | XMS_ITS | Encounter Summary ---
:1965 Author Organization [facility] Address [address] [place] [address] Care Team Providers Name Role Phone Petar Janet Moss CAREER DEVELOPMENT COORDINATOR/TEACHER Primary Care Provider Reason for Visit Reason Comments Annual Exam Encounter Details Date Type Department Care Team Description 08/06/2018 Office Visit Obstetrics and Ida Ron, Encounter for Gynecology at [facility] CAREER DEVELOPMENT COORDINATOR/TEACHER gynecological [facility] on [address] abnormal finding [place], [place] OBSTETRICS & [address] GYNECOLOGY [phone] [place], [place] [address] Social History Tobacco Use Types [...] 3:40 PM EST Reason for visit: Annual rear admiral exam ROS: SKOOG MACHINE OPERATOR: Suha 2015 for menstrual control. Rare spotting. [...] Procedure Laterality Date ??? CREATED BY INTERFACE E.S.W.LJoseph(MSUROL) Procedure Date: 01/16/2008 ??? KNEE SURGERY 03/01/14 Right knee; patella surgery ??? LITHOTRIPSY ? ? PRO CYSTOURETHROSCOPY, FULGUR <.5CM LESN N/A 04/18/2017 CYSTO, FULGURATION\BLADDER LESION\W\WO BX\LESS THAN 0.5CM (WRVU 4.05) performed by Luis Michael Jr., MD at [facility] MAIN OR SKOOG MACHINE OPERATOR History: Pt is a 52??year old G [...] a new home in their town of [place], [place]. 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 Eats relatively healthy with fruits, vegetables, yogurt, and milk; minimal meat. Eats 3 meals per day, does not drink tea or coffee, and occasionally drinks soda.Her youngest is 18 yrs old, in college in [place]. The other two are out of the house. She is veryinvolved with her sons family that has lots of psycho social issues, her sons is bipolar, back issue, they have one child together, she had 3 in a previous relationship. She has not gone for counseling. Mixer Operator Screener 08/06/2018 Hit,kicked,punched or hurt in past year No Safe in current relationship Yes Partner from previous relationship making you feel unsafe No Emotionally hurt and/or controlled by someone No Unwanted sexual contact No Outpatient Medications Marked as Taking for the 08/06/18 encounter (Office Visit) with Bebe Ron APRN Medication Sig Dispense Refill ??? estradiol 0.1 mg/[address] 1 patch onto the skin twice a week. 8 patch 3 ??? galantamine (RAZADYNE) 12 mg Tablet 0 ??? memantine (NAMENDA) 5 mg Tablet 0 ??? valACYclovir (VALTREX) 500 mg Tablet ??? azelastine (ASTELIN) 137 mcg (0.1 %) Aerosol, [place] instill 1 spray into each nostril twice [...] 1 each by Intrauterine route once. Lot [id number] ??? hydrocortisone (WESTCORT) 0.2 % Cream Apply [...] confirms, good tone, no hemorrhoids A: Unremarkable rear admiral exam P: F/U one yr at which time will check FSH re: menopause documented in this encounter Plan of Treatment Upcoming Encounters Date Type Specialty Care Team Description 07/13/2022 Appointment Radiology Maile Hinojosa MD [facility] [address] [place], [place] [address] (Wo rk) 07/13/2022 Office Visit Endocrinology Maile Hinojosa MD [facility] ENDOCRINOLOGY [place], [place] [address] (Wo rk) documented as of this encounter Visit Diagnoses Diagnosis Encounter for gynecological examination without abnormal finding Routine gynecological examination documented in this encounter Care Teams Colorist Formulator Relationship Specialty Start Date End Date Janet Davey APRN PCP - General Family Medicine 06/23/18 07/12/20 [address] [place] [address] documented as of this encounter
--- OUTSIDE RECORDS SUMMARY | 2022-04-19 15:18 | XMS_ITS | Encounter Summary ---
:1965 Author Organization [facility] [place] [address] Care Team Providers Name Role Phone Janet Davey Isa GONCALVES Primary Care Provider Encounter Details Date Type Department Care Team Description 03/30/2019 Orders Only Urology at [facility] Luis Michael Jr., MD [facility] [address] UROLOGY DEPT. [phone] [place], [place] [address] (Wo rk) Social History Tobacco [...] Description 07/13/2022 Appointment Radiology Maile Hinojosa MD [facility] ER [address] [place], [place] [address] (Wo rk) 07/13/2022 Office Visit Endocrinology Maile Hinojosa MD [facility] [address] [place], [place] [address] (Wo rk) documented as of this encounter Visit Diagnoses Not on filedocumented in this encounter Care Teams Bench Mechanic Relationship Specialty Start Date End Date Janet Davey APRN PCP - General Family Medicine 06/23/18 07/12/20 [address] [place] [address] documented as of this encounter
--- OUTSIDE RECORDS SUMMARY | 2022-04-19 15:18 | XMS_ITS | Encounter Summary ---
:1965 Author Organization [facility] [place] [address] Care Team Providers Name Role Phone Sarah Young APRN Primary Care Provider [phone] Encounter Details Date Type Department Care Team Description 10/11/2017 Telephone Psychiatry and Behavioral Jessica Miranda, PhD Health at [facility] NEUROPSYCHOLOGY DEPT. [place] [address] [place] [address] [phone] (Wo rk) Social History Tobacco Use Types [...] to discuss the results of her second [facility] neuropsychological evaluation. Briefly, the results [...] [place] for evaluation. Please contact us at [phone] if we can be of further assistance. Sherine Hurst Psy.D. Jessica Shelton, Ph.D., ABPP Postdoctoral Fellow in Neuropsychology Board Certified in Clinical Neuropsychology pug mill operator Director, Neuropsychology Program documented in this encounter Plan of Treatment Upcoming Encounters Date Type Specialty Care Team Description 07/13/2022 Appointment Radiology Maile Hinojosa MD [facility] [address] [place], [place] [address] (Wo silva) 07/13/2022 Office Visit Endocrinology Maile Hinojosa MD [facility] [address] [place], [place] [address] (Wo rk) documented as of this encounter Visit Diagnoses Not on filedocumented in this encounter Care Teams Meal Cooker Relationship Specialty Start Date End Date Sarah Young APRN PCP - General Family Medicine 06/27/17 05/15/18 [address] [place] [address] documented as of this encounter
--- OUTSIDE RECORDS SUMMARY | 2022-04-19 15:18 | XMS_ITS | Encounter Summary ---
:1965 Author Organization [facility] [place] [address] Care Team Providers Name Role Phone EdJanet mendez Isa GONCALVES Primary Care Provider Reason for Visit Reason Comments Skin Lesion Consultation (Routine) - Specialty Diagnoses / Procedures Referred By Contact Refer red To Contact Dermatology Diagnoses SKIN LESION Doreen Larios PA [facility] [address] [place] [address] [place] [address] Fax: Referral ID Status Reason Start Date Expiration Date Visits V isits Requested Authorized [id number] Consult, 05/16/2018 05/16/2019 6 6 [facility] Encounter Details Date Type Department Care Team Description 06/23/2018 Office Visit Dermatology at [facility] Seborrheic keratosis; Matthew Estrada MD Lentigines [address] [place] [address] [facility] [address]-DERMATOLOGY [place], [place] [address] Social History Tobacco Use Types [...] or pain. 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 Lot [id number] ??? omeprazole (PRILOSEC) 20 mg Capsule, Delayed [...] documentation. Romy Ansari MD Section of Dermatology [facility] documented in this encounter Plan of Treatment Upcoming Encounters Date Type Specialty Care Team Description 07/13/2022 Appointment Radiology Maile Hinojosa MD [facility] ENDOCRINOLOGY [place], [place] [address] (Wo rk) 07/13/2022 Office Visit Endocrinology Maile Hinojosa MD [facility] ENDOCRINOLOGY [place], [place] [address] (Wo rk) documented as of this encounter Visit Diagnoses Diagnosis Seborrheic keratosis Other seborrheic keratosis Lentigines Other dyschromia documented in this encounter Care Teams Learning And Development Director Relationship Specialty Start Date End Date Janet Davey APRN PCP - General Family Medicine 06/23/18 07/12/20 [address] [place] [address] documented as of this encounter
--- OUTSIDE RECORDS SUMMARY | 2022-04-19 15:18 | XMS_ITS | Encounter Summary ---
:1965 Author Organization [facility] [place] [address] Care Team Providers Name Role Phone Sarah Young APRN Primary Care Provider [phone] Encounter Details Date Type Department Care Team Description 07/26/2017 Telephone Urology at [facility] Luis Michael Jr., MD [facility] [place] [address] UROLOGY DEPT. [phone] [place], [place] [address] (Wo rk) Social History Tobacco [...] [facility] ER [address]ALEEL [place] [address] (Wo rk) 07/13/2022 Office Visit Endocrinology Maile Hinojosa MD [facility] [address] [place] [place], [place] [address] (Wo rk) documented as of this encounter Visit Diagnoses Not on filedocumented in this encounter Care Teams Oil Dispenser Relationship Specialty Start Date End Date Sarah Young APRN PCP - General Family Medicine 06/27/17 05/15/18 [address] [place] [address] documented as of this encounter
--- OUTSIDE RECORDS SUMMARY | 2022-04-19 15:18 | XMS_ITS | Encounter Summary ---
:1965 Author Organization [facility] [place] [address] Care Team Providers Name Role Phone Janet Davey APRN Primary Care Provider Encounter Details Date Type Department Care Team Description 08/15/2018 Hospital Encounter Mammography [place] [facility] [place] Tineo, Abnormal finding on [facility] MD breast imaging [place], [place] CENTER [address] NUCLEAR MEDICINE [phone] [place] [address] Social History Tobacco Use Types Packs/Day Years [...] (0.1 %) Aerosol, each nostril twice a [place]ley day SUMAtriptan (IMITREX) as needed for 1 [...] 05/01/2016 05/01/2021 20 mcg/24 hr (5 years) [id number] IUD cetirizine (ZYRTEC) 10 Take 10 mg by mouth 0 02/12/2022 mg tablet daily. tacrolimus (PROTOPIC) 1 Appl(s) Top Twice 0 08/2402/12/2022 0.1 % ointment daily KETOCONAZOLE (NIZORAL Apply topically. 0 08/24/20 10 02/12/2022 TOP) documented as of this encounter Plan of Treatment Upcoming Encounters Date Type Specialty Care Team Description 07/13/2022 Appointment Radiology Maile Hinojosa MD [facility] ENDOCRINOLOGY [place], [place] [address] (Wo rk) 07/13/2022 Office Visit Endocrinology Maile Hinojosa MD [facility] [address]ALEEL [place], [place] [address] (Wo rk) documented as of this [...] Right breast: BI-RADS 1, negative. * ??[employer] an d The Society [...] breast documented in this encounter Care Teams Peanut Farmer Relationship Specialty Start Date End Date Janet Davey, SCREEN PRINTING SUPERVISOR PCP - General Family Medicine 06/23/18 07/12/20 [address] [place] [address] documented as of this encounter
--- OUTSIDE RECORDS SUMMARY | 2022-04-19 15:18 | XMS_ITS | Encounter Summary ---
:1965 Author Organization [facility] [place] [address] Care Team Providers Name Role Phone EdJanet mendez Isa GONCALVES Primary Care Provider Reason for Visit Reason Comments Nephrolithiasis Encounter Details Date Type Department Care Team Description 06/30/2019 Office Visit [place]rology [place] [facility] Ferdinand Michael Jr., Nephrolithiasis [facility] [place] [address] [facility] [phone] UROLOGY DEPT. [place], [place] [address] (Wo rk) Social History Tobacco [...] Description 07/13/2022 Appointment Radiology Maile Hinojosa MD [facility] [address] [place], [place] [address] (Wo silva) 07/13/2022 Office Visit Endocrinology Maile Hinojosa MD [facility] [address] [place], [place] [address] (Wo silva) documented as of this encounter Results US [...] below. Electronically signed by: Antoinette Lawson, Radiology [place] ([phone]), at 8:56 AM ?Mallika Galindo, Sect ion Chief Electronically Signed Final Report ?? 09:02 am Narrative 07/13/2020 9:03 AM EST Renal ? (Signed Final 07/13/2020 09:02 am) PATIENT INFO: ID #: ? [id number] ?: ??[birth year] (54 yrs)(F) Name: ? JESSICA Melvin ALBRIGHT ?Visit Date: 07/13/2020 07:58 am PERFORMED BY: Performed By: ? Jolene Alexander RDMS Attending: ?Mateo GILL, Mallika Ribera Referred By: ?FERDINAND MICHAEL Location: ? [place] SERVICE(S) PROVIDED: ??URETRO - Retroperitoneal Complete - I [id number] ? [id number] INDICATIONS: ??? stones COMPARISON: Ultrasound: 06/30/19 RIGHT [...] 09:02 am ) PATIENT INFO: ID #: [id number] : [birth year] (54 y rs)(F) Name: JESSICA ALBRIGHT Visit Date: 07/13 07:58 am PERFORMED BY: Performed By: Sidra Alexander RDMS Attending: Mallika Galindo MD Referred By: FERDINAND MICHAEL JR Location: [place] SERVICE(S) PROVIDED: URETRO - Retroperitoneal Complete - IM [id number] INDICATIONS: ? stones COMPARISON: Ultrasound: 06/30/19 RIGHT [...] below. Electronically signed by: Antoinette Lawson, Radiology [place] ([phone]), at 8:56 AM Mallika Galindo, Mud Grinder Electronically Signed Final Report 07/13 09:02 am Ferdinand Michael Jr., MD [facility] US GEN ORDERABLES documented in this encounter Visit Diagnoses Diagnosis Nephrolithiasis Calculus of kidney Nephrolithiasis Calculus of kidney documented in this encounter Care Teams Rn Clinical Documentation Specialist Relationship Specialty Start Date End Date Janet Davey, SET DESIGNER PCP - General Family Medicine 06/23/18 07/12/20 [address] [place] [address] documented as of this encounter
--- OUTSIDE RECORDS SUMMARY | 2022-04-19 15:18 | XMS_ITS | Encounter Summary ---
:1965 Author Organization [facility] [place] [address] Care Team Providers Name Role Phone Suzie Mcintyre APRN Primary Care Provider Encounter Details Date Type Department Care Team Description 04/25/2017 Telephone Urology at [facility] Luis Michael Jr., MD [facility] [place] [address] UROLOGY DEPT. [phone] [place], [place] [address] (Wo rk) Social History Tobacco [...] Specialty Care Team Description 07/13/2022 Appointment Radiology Gruntmanis, Ugis , MD [facility] ER ENDOCRINOLOGY [place], [place] [address] (Wo rk) 07/13/2022 Office Visit Endocrinology Maile Hinojosa MD [facility] ENDOCRINOLOGY [place], [place] [address] (Wo rk) documented as of this encounter Visit Diagnoses Not on filedocumented in this encounter Care Teams Leacher Relationship Specialty Start Date End Date Suzie Mcintyre APRN PCP - General Family Medicine 02/28/17 06/26/17 documented as of this encounter
--- OUTSIDE RECORDS SUMMARY | 2022-04-19 15:18 | XMS_ITS | Encounter Summary ---
:1965 Author Organization [facility] [place] [address] Care Team Providers Name Role Phone Sarah Young APRN Primary Care Provider [phone] Reason for Visit Reason Comments Cognitive Problems Neuropsychological Re-evalua tion Consultation (Routine) - Closed Specialty Diagnoses / Procedures Referred By Contact Refer red To Contact Psychiatry Diagnoses [facility] Suzie Mcintyre, Salvador Kim, PhD Procedures PRO NEUROPSYCHOLOGICAL TESTING,PER HOUR BY ADMINISTRATIVE LAW JUDGE MOE TUCKER [address] [facility] [address] [address] [place] [address] Fax: Referral ID Status Reason Start Date Expiration Date Visits V isits Requested Authorized [id number] Closed Consult & 02/28/2017 02/28/2018 1 1 Test Connection [facility] Encounter Details Date Type Department Care Team Description 08/15/2017 Office Visit Psychiatry and Jessica Shelton los s; Behavioral Health at A, PhD Mild neurocognitive disorder [facility] NEUROPSYCHOLOGY [facility] DEPT. 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 REASON FOR REFERRAL AND BACKGROUND This is Stacy Albright???s second [facility] neuropsychological evaluation. She was referred for reassessment [...] of grades. 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 She is and has been remarried for [...] Ms. Albright completed a neuropsychological evaluation at [facility] on09/12/2016 (Christine Raza PsyD and Salvador Palmer, [...] Anxiety Inventory (VLADIMIR); Avila Depression Inventory-II (BDI-II); [place] Naming Test (BNT); Brief Visuospatial Memory Test- Revised (BVMT-R); [place] Verbal Learning Test, Second Edition(CVLT-II); Comprehension of Complex Ideational Material (from BDAE; [place] Diagnostic Aphasia Examination); Trudy-Antony Executive Function System (D-KEFS, selected subtests); Grooved Pegboard Test; Lateral Dominance Examination; Paced Auditory Serial Addition Test (PASAT, Lorenz version); Florentin Complex Figure Test (RCFT); [place] Making Test; Nima Adult Intelligence Scale - 4th edition (WAIS-IV); Nima Memory Scale, Fourth Edition (WMS-IV, selected subtests); [place] Card Sorting Test (WCST). Total time spent in testing, interpretation, and report writin hours, 30 minutes TEST RESULTS: Note: All tests were administered by a farm hand. Descriptors are based on appropriate normativedata and [...] (6-8-8-10-9) Low Average Short-Delay Free Recall 12/09 8 Borderline Short-Delay Cued Recall 02/0816 Average Long Delay Free Recall 03/10 04/10 Borderline Long Delay Cued Recall 12/0916 Low Average Recognition Hits Low Average False Positive Errors 9 11 Moderately Impaired Discriminability 1.7 1.3 Borderline Forced Choice Recognition Within Expectation *alternate form BVMT-R: Raw Score Raw Score* Total Learning (Trials 1-3) 24 (5-9-10) 1636 (3-4-9) Borderline Delayed Recall 07/07 02/04 Borderline Recognition Hits 01/29 6/ Within normal limits False Positive Errors 0 [...] Average 2 sec. pacing 39/60 36/60 Average [place] Making Test: Raw Score (T Score) Raw [...] Neuropsychology Board Certified Clinical Neuropsychologist Licensed Psychologist supervisor asphalt paving A postdoctoral fellow in neuropsychology was involved in test administration, interpretation, and report development. The interpretation and integration of pertinent clinical information found in this report was directed and verified by the supervising neuropsychologist/licensed clinical psychologist. documented in this encounter Plan of Treatment Upcoming Encounters Date Type Specialty Care Team Description 07/13/2022 Appointment Radiology Maile Hinojosa MD [facility] ER ENDOCRINOLOGY [place], [place] [address] (Wo rk) 07/13/2022 Office Visit Endocrinology Maile Hinojosa MD [facility] ENDOCRINOLOGY [place], [place] [address] (Wo rk) documented as of this encounter Visit Diagnoses Diagnosis Memory loss Mild neurocognitive disorder documented in this encounter Care Teams Catheter Builder Relationship Specialty Start Date End Date Sarah Young APRN PCP - General Family Medicine 06/27/17 05/15/18 [address] [place] [address] documented as of this encounter
--- OUTSIDE RECORDS SUMMARY | 2022-04-19 15:18 | XMS_ITS | Encounter Summary ---
:1965 Author Organization [facility] Address [facility] [address] [place] [address] Care Team Providers Name Role Phone Petar Janet Moss APRN Primary Care Provider Encounter Details Date Type Department Care Team Description 07/07/2020 Office Visit Endocrinology at [facility] Cuate Pearl MD Osteoporosis, [facility] ed [facility] [address] DR osteoporosis type, [place] [address] ENDOCRINOLOGY unspecified [phone] [place], [place] [address] pathological fracture [phone] presence (Work) Social History Tobacco Use Types [...] 20 of the 25-minute appointment was spent [id number] discussing the issues above. documented in this encounter Plan of Treatment Upcoming Encounters Date Type Specialty Care Team Description 07/13/2022 Appointment Radiology Maile Hinojosa MD [facility] ENDOCRINOLOGY [place], [place] [address] (Wo rk) 07/13/2022 Office Visit Endocrinology Maile Hinojosa MD [facility] ENDOCRINOLOGY [place], [place] [address] (Wo rk) documented as of [...] encounter Results Estradiol (07/07/2020 3:51 PM EST) athologist Signature Estradiol 135 pg/mL [facility] Comment: Reference ranges: Males: Adult: [...] Organization Address City/State/ZIP Code Phon e Number [address] Vitamin D, 25-Hydroxy (07/07/2020 3:51 PM EST) Patholo gist Method Time Signature 25-OH Vit D 42 21 - 100 ALBERT ASHUTOSH Total ng/mL [facility] 25-OH Vit D Sufficient [facility] LABORATORY Specimen Anatomical Collection Method Collection Time Receive d Time (Source) Location / / Volume Laterality Blood specimen No Charge / 07/07/2020 3:51 PM 020 4:18 (specimen) Unknown EST PM EST Resulting Agency Comment Spec In Lab Cuate Hall MD CHEMISTRY ORDERABLES Performing Organization Address City/State/ZIP Code Phon e Number [address] Calcium (07/07/2020 3:51 PM EST) P athologist Signature Calcium 9.1 8.5 - 10.5 ALBERT LEMONSCOCK mg/dL [facility] Specimen Anatomical Collection Method Collection Time Receive d Time (Source) Location / / Volume Laterality Blood specimen No Charge / 07/07/2020 3:51 PM 020 4:18 (specimen) Unknown EST PM EST Resulting Agency Comment Spec In Lab Cuate Hall MD CHEMISTRY ORDERABLES Performing Organization Address City/State/[place] [address] PTH (07/07/2020 3:51 PM EST) P athologist Signature PTH 40 15 - 65 [facility] pg/mL [facility] Specimen Anatomical Collection Method Collection Time Receive d Time (Source) Location / / Volume Laterality Blood specimen No Charge / 07/07/2020 3:51 PM 8:39 (specimen) Unknown EST AM EST Resulting Agency Comment Spec In Lab Cuate Hall MD CHEMISTRY ORDERABLES Performing Organization Address City/[facility]/[place] [address] Lavender Tube HOLD (07/07/2020 3:51 PM EST) Patholo gist Method Time Signature Lavender Hold Sample in [facility] Specimen Anatomical Collection Method Collection Time Receive d Time (Source) Location / / Volume Laterality Blood specimen No Charge / 07/07/2020 3:51 PM 020 3:59 (specimen) Unknown EST PM EST Cuate Hall MD HEMATOLOGY ORDERABLES Performing Organization Address City/[facility]/[place] [address] Green Tube HOLD (07/07/2020 3:51 PM EST) P athologist Signature Green Hold Sample in [facility] LABORATORY Specimen Anatomical Collection Method Collection Time Receive d Time (Source) Location / / Volume Laterality Blood specimen No Charge / 07/07/2020 3:51 PM 020 3:59 (specimen) Unknown EST PM EST Cuate Hall MD CHEMISTRY ORDERABLES Performing Organization Address City/[facility]/[place] [address] [facility] [address] Gold Tube HOLD (07/07/2020 3:51 PM EST) P athologist Signature Gold Hold Sample in [facility]. [facility] Specimen Anatomical Collection Method Collection Time Receive d Time (Source) Location / / Volume Laterality Blood specimen No Charge / 07/07/2020 3:51 PM 020 3:59 (specimen) Unknown EST PM EST Cuate Hall MD CHEMISTRY ORDERABLES Performing Organization Address City/State/ZIP Code Phon e Number [place] [phone] [facility] [address] documented in this encounter Visit Diagnoses Diagnosis Osteoporosis, unspecified osteoporosis t ype, unspecified pathological fracture presence documented in this encounter Care Teams Auto Clutch Specialist Relationship Specialty Start Date End Date Janet Davey, SINGE WINDER PCP - General Family Medicine 06/23/18 07/12/20 [address] [place] [address] documented as of this encounter
--- OUTSIDE RECORDS SUMMARY | 2022-04-19 15:18 | XMS_ITS | Encounter Summary ---
:1965 Author Organization [facility] Address [facility] [address] [place] [address] Care Team Providers Name Role Phone Sarah Young APRN Primary Care Provider [phone] Encounter Details Date Type Department Care Team Description 06/27/2017 Orders Only Endocrinology at [facility] Cuate Pearl MD Osteoporosis, [facility] DR osteoporosis type, [place] [address] ENDOCRINOLOGY unspecified [phone] [place], [place] [address] pathological fracture [phone] presence (Work) Social History Tobacco Use Types [...] Description 07/13/2022 Appointment Radiology Maile Hinojosa MD [facility] ER DR [address]MO[address] [place], [place] [address] (Wo rk) 07/13/2022 Office Visit Endocrinology Maile Hinojosa MD [facility] ER DR [address]MO[address] [place], [place] [address] (Wo rk) documented as of this encounter Results Calcium (06/27/2017 3:22 PM EDT) athologist Signature Calcium 9.1 8.5 - 10.5 ALBERT BOYKIN mg/dL [facility] Specimen Anatomical Collection Method Collection Time Receive d Time (Source) Location / / Volume Laterality Blood specimen 06/27/2017 3:22 PM 017 3:29 (specimen) EDT PM EDT Resulting Agency Comment Spec In Lab Cuate Hall MD CHEMISTRY ORDERABLES Performing Organization Address City/[facility] Phon e Number [address] Vitamin D, 25-Hydroxy (06/27/2017 3:22 PM EDT) athologist Signature 25-OH Vit D 32 30 - 100 [facility] Total ng/mL [facility] Comment: Deficient <10 ng/mL Insufficient 10 to 29 ng/mL Sufficient 30 to 100 ng/mL Potential Intoxication >100 ng/mL According to the US National Osteoporosi s Foundation, Vitamin D concentrations >30 ng/mL are sufficient to protect bone health. ??The National Kidney Foundation has similarly stated that pat ients with Vitamin D concentrations <30ng/mL should be considered to be insu fficient or deficient. http://[employer]/nkf-guidelines http://[employer]/nejm-VitD The IDS i[employer] Vitamin D Immunoassay detec [...] Hall MD CHEMISTRY ORDERABLES Performing Organization Address City/[facility] Phon e Number [address] PTH (06/27/2017 3:22 PM EDT) athologist Signature PTH 41 15 - 65 [facility] pg/mL [facility] Specimen Anatomical Collection Method Collection Time Receive d Time (Source) Location / / Volume Laterality Blood specimen 06/27/2017 3:22 PM 017 3:29 (specimen) EDT PM EDT Resulting Agency Comment Spec In Lab Cuate Hall MD CHEMISTRY ORDERABLES Performing Organization Address City/State/[place] [address] documented in this encounter Visit Diagnoses Diagnosis Osteoporosis, unspecified osteoporosis t ype, unspecified pathological fracture presence documented in this encounter Care Teams Sales Engineer Relationship Specialty Start Date End Date Sarah Young APRN PCP - General Family Medicine 06/27/17 05/15/18 [address] [place] [address] documented as of this encounter
--- OUTSIDE RECORDS SUMMARY | 2022-04-19 15:18 | XMS_ITS | Encounter Summary ---
:1965 Author Organization [facility] [place] [address] Care Team Providers Name Role Phone Janet Davey APRN Primary Care Provider Encounter Details Date Type Department Care Team Description 10/20/2019 Hospital Encounter Mammography/DXA at Janet Davey, En counter for [facility] AUTOMOTIVE GENERATOR REPAIRER screening mammogram [address] [facility] [address], [address] [place] [id number] Social History Tobacco Use Types Packs/Day Years Used Date Never Smoker Smokeless Tobacco: Never Used Alcohol Use Standard Drinks/Week Comments No 0 (1 standard drink = 0.6 oz pure alcoho l) Sex Assigned at Date Recorded Female 01/29/2022 12:45 PM EDT documented as of this encounter Medications at Time of Discharge Medication Sig Dispensed Refills Start Date End Date cyclobenzaprine TK 1 T PO TID PRN 0 09/08/2019 (Flexeril) 5 mg Tablet galantamine (RAZADYNE) 12 mg 2 times daily. 0 01/2018 12 mg Tablet memantine (NAMENDA) 5 mg 5 mg 2 times daily. 0 Tablet azelastine (ASTELIN) 137 instill 1 spray into 0 1 mcg (0.1 %) Aerosol, each nostril twice a [place] day SUMAtriptan (IMITREX) as needed for 1 04/13/2016 100 mg Tablet Migraine. hydrocortisone Apply topically as 0 07/25/2015 (WESTCORT) 0.2 % Cream needed. multivitamin (THERAGRAN) Take 1 tablet by 0 tablet mouth daily. montelukast (SINGULAIR) Take 10 mg by mouth 0 10 mg tablet every morning. albuterol (ACCUNEB) 0.63 0 08/24/2010 mg/3 mL nebulizer solution lidocaine (LIDODERM) 5 % APPLY 1 PATCH [...] 05/01/2016 05/01/2021 20 mcg/24 hr (5 years) [id number] IUD cetirizine (ZYRTEC) 10 Take 10 mg by mouth 0 02/12/2022 mg tablet daily. tacrolimus (PROTOPIC) 1 Appl(s) Top Twice 0 08/2402/12/2022 0.1 % ointment daily KETOCONAZOLE (NIZORAL Apply topically. 0 08/24/2002/12/2022 TOP) documented as of this encounter Plan of Treatment Upcoming Encounters Date Type Specialty Care Team Description 07/13/2022 Appointment Radiology Maile Hinojosa MD [facility] ENDOCRINOLOGY [place], [place] [address] (Wo rk) 07/13/2022 Office Visit Endocrinology Maile Hinojosa MD [facility] ENDOCRINOLOGY [place], [place] [address] (Wo rk) documented as of this encounter Procedures Procedure Name Priority Date/Time Associated Diagnosis Comme nts MAMMO SCREENING CAD Routine 10/20/2019 2:32 PM Encounter for R esults for this AND EDDIE BILATERAL EST screening mammogram pr ocedure are in for breast cancer the result s section. documented in this encounter Results Mammo Screening Cad and Eddie Bilateral (10/20/2019 2:32 PM EST) Anatomical Region Laterality Modality Breast Bilateral Mammography Specimen (Source) Anatomical Location Collection Method / Collectio n Time Received Time / Laterality Volume Narrative 10/20/2019 4:19 PM EST BILATERAL MAMMOGRAPHY REASON FOR EXAM: Screening [...] CONCLUSION: No mammographic evidence of malignancy. RECOMMENDATION: Medical organizations ag ree that annual screening mammography beginning at age 40 saves th e most lives. The risks of screening are negligible compared to dyi ng from breast cancer or suffering from more aggressive treatment required when detected at a later stage. No woman is at low risk for breast cancer. Some women, because of their family history, a genetic tendency, or c ertain other factors, should be screened with breast MRI along with mamm ograms. (The number of women who fall into this category is very small). The patient and health care provider should discuss the patient hist ory and decide if earlier screening and breast MRI are appropriate . Screening should continue as long as a woman is in good health and is expected to live 10 years or longer. Screening mammography may not de tect 10-15% of breast cancers. Women should report any breast changes t o a health care provider right away. A result letter has been sent to this pa zhanna by [facility]. BIRADS CATEGORY 1: NEGATIVE Janet Davey APRN IMG MAMMO ORDERABLES documented in this encounter Visit Diagnoses Diagnosis Encounter for screening mammogram for br east cancer documented in this encounter Care Teams Vice President Of Product Marketing Relationship Specialty Start Date End Date Janet Davey, AUTOMOTIVE GENERATOR REPAIRER PCP - General Family Medicine 06/23/18 07/12/20 [address] [place] [address] documented as of this encounter
--- OUTSIDE RECORDS SUMMARY | 2022-04-19 15:18 | XMS_ITS | Encounter Summary ---
:1965 Author Organization [facility] [place] [address] Care Team Providers Name Role Phone Janet Davey APRN Primary Care Provider Reason for Visit Consultation (Routine) - Specialty Diagnoses / Procedures Referred By Contact Refer red To Contact Dermatology Diagnoses Follicular disorder, unspecified Folliculitis presumed Fungal Janet Davey APRN Hammer, Charles J, MD Procedures Consult [address] [place] [address] [place] [address] Phone: Fax: Referral ID Status Reason Start Date Expiration Date Visits V isits Requested Authorized [id number] Consult, Test 12/28/2019 06/29/2020 6 6 & Treat PCP Updated and/or Approved Encounter Details Date Type Department Care Team Description 01/04/2020 TH Visit Dermatology at [facility] Keratos is pilaris (Tele[facility]) Yarelis GILL [address] [facility] Medhat B DERMATOLOGY [place], [place] [address] [phone] Social History Tobacco Use Types Packs/Day Years [...] 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 [...] 07/13/2022 Appointment Radiology Maile Hinojosa MD [facility] ENDOCRINOLOGY [place], [place] [address] (Wo rk) 07/13/2022 Office Visit Endocrinology Maile Hinojosa MD [facility] ER ENDOCRINOLOGY [place], [place] [address] (Wo rk) documented as of this encounter Visit Diagnoses Diagnosis Keratosis pilaris Other specified congenital anomaly of sk in documented in this encounter Care Teams Casting Sorter Relationship Specialty Start Date End Date Janet Davey APRN PCP - General Family Medicine 06/23/18 07/12/20 [address] [place] [address] documented as of this encounter
--- OUTSIDE RECORDS SUMMARY | 2022-04-19 15:18 | XMS_ITS | Encounter Summary ---
:1965 Author Organization [facility] Address [address] [place] [address] Care Team Providers Name Role Phone PetarJanet Isa GONCALVES Primary Care Provider Reason for Referral Diagnostic Test (Routine) - Closed Specialty Diagnoses / Procedures Referred By Contact Refer red To Contact Radiology Diagnoses Osteoporosis, unspecified osteoporosis type, unspecified pathological fracture presence Cuate Hall MD [facility] Rad Xray Procedures DXA Central Spine, Hip, and/or Whole Body (Generic) [facility] [address] [place] [address] [place] [address] [place] [address] Referral ID Status Reason Start Date Expiration Date Visits V isits Requested Authorized [id number] Closed Specialty 03/14/2020 09/14/2021 1 1 Service Requested Encounter Details Date Type Department Care Team Description 03/14/2020 Orders Only Endocrinology at [facility] C Cuate Hall MD Osteoporosis, [facility] osteoporosis type, [place] [address] ENDOCRINOLOGY unspecified [phone] [place], [place] [address] pathological fracture [phone] presence (Work) Social History Tobacco Use Types [...] Hinojosa MD [facility] ENDOCRINOLOGY [place], [place] [address] (Wo rk) 07/13/2022 Office Visit Endocrinology Maile Hinojosa MD [facility] ENDOCRINOLOGY [place], [place] [address] (Wo rk) documented as of [...] This is available through an interactive web-based MapSensea ce (http://www.[facility].ac.uk/FRAX/) and can be used to estimate a [...] measurements a nd plots are available in ERed Dot Payment under the imaging tab. Paper copies will be sent to providers without E- access. If you have received this report without [facility] data sheet and do not have access to Red Dot Payment, please contact Radiology [facility] at [phone] Saturday thru Saturday 8am-4pm. Thank you for letting us participate in the care of this patient. For questions regarding this report, please contact e number below. ? Narrative 07/07/2020 5:05 PM EST EXAMINATION: DXA CENTRAL SPINE, HIP, AND/OR WHOLE BODY (GENERIC) CLINICAL HISTORY: osteoporosis, ,entered by ordering service TECHNIQUE: Scans were acquired at the esua mbar spine, and left hip. FINDINGS: Femoral [...] service TECHNIQUE: Scans were acquired at the mbar spine, and left hip. FINDINGS: Femoral neck BMD: 0.549 g/cm2 Lowest T-score at the diagnostic region of interest: T-score: -2.7, TENZIN: Femoral neck, WHO di agnosis: Osteoporosis. ......... Comparison......... Previous scan:2016 Total spine: Compared to the previous, -3 [...] This is available through an interactive web-based MapSensea ce (http://www.shef.ac.uk/FRAX/) and can be used to [...] measurements a nd plots are available in ERed Dot Payment under the imaging tab. Paper copies will be sent to providers without E- access. If you have received this report without e data sheet and do not have access to [place], please contact Radiology [facility] at [phone] Saturday thru Saturday 8am-4pm. Thank you for letting us participate in the care of this patient. For questions regarding this report, please contact e number below. Cuate Hall MD IMG DEXA ORDERABLES documented in this encounter Visit Diagnoses Diagnosis Osteoporosis, unspecified osteoporosis t ype, unspecified pathological fracture presence Osteoporosis, unspecified osteoporosis t ype, unspecified pathological fracture presence documented in this encounter Care Teams Residential Sales Consultant Relationship Specialty Start Date End Date Janet Davey, CONSTRUCTION SALES MANAGER PCP - General Family Medicine 06/23/18 07/12/20 [address] [place] [address] documented as of this encounter
--- OUTSIDE RECORDS SUMMARY | 2022-04-19 15:18 | XMS_ITS | Encounter Summary ---
:1965 Author Organization [facility] [place] [address] Care Team Providers Name Role Phone Petar Janet Isa GONCALVES Primary Care Provider Reason for Visit Reason Onset Date Comments Medication Refill 07/10/2018 Encounter Details Date Type Department Care Team Description 07/10/2018 Refill Obstetrics and [place] [facility] [place] [address] Social History Tobacco Use Types Packs/Day Years Used Date Never Smoker Smokeless Tobacco: Never Used Alcohol Use Standard Drinks/Week Comments No 0 (1 standard drink = 0.6 oz pure alcoho l) Sex Assigned at Date Recorded Female 01/29/2022 12:45 PM EDT documented as of this encounter Plan of Treatment Upcoming Encounters Date Type Specialty Care Team Description 07/13/2022 Appointment Radiology Maile Hinojosa MD [facility] ER DR MARMO[address] [place], [place] [address] (Wo rk) 07/13/2022 Office Visit Endocrinology Maile Hinojosa MD [facility] ER [address] MARMOLEJO [place], [place] [address] (Wo rk) documented as of this encounter Visit Diagnoses Not on filedocumented in this encounter Care Teams Scholastic Aptitude Test Grader Relationship Specialty Start Date End Date Janet Davey, RN LVN PCP - General Family Medicine 06/23/18 07/12/20 [address] [place] [address] documented as of this encounter
--- OUTSIDE RECORDS SUMMARY | 2022-04-19 15:18 | XMS_ITS | Encounter Summary ---
:1965 Author Organization [facility] Address [address] [facility] [place] [address] Care Team Providers Name Role Phone Janet Davey BARREL MARKER Primary Care Provider Encounter Details Date Type Department Care Team Description 08/06/2018 Hospital Encounter [place] [facility] [place] Davey, Visit for screening [facility] mammogram Drive [address] [place] [address] [facility] [address] [place] [address] Social History Tobacco Use Types Packs/Day Years [...] (0.1 %) Aerosol, each nostril twice a [place] day SUMAtriptan (IMITREX) as needed for 1 [...] 05/01/2016 05/01/2021 20 mcg/24 hr (5 years) [id number] IUD cetirizine (ZYRTEC) 10 Take 10 mg by mouth 0 02/12/2022 mg tablet daily. tacrolimus (PROTOPIC) 1 Appl(s) Top Twice 0 08/2402/12/2022 0.1 % ointment daily KETOCONAZOLE (NIZORAL Apply topically. 0 08/24/20 10 02/12/2022 TOP) documented as of this encounter Plan of Treatment Upcoming Encounters Date Type Specialty Care Team Description 07/13/2022 Appointment Radiology Maile Hinojosa MD [facility] ENDOCRINOLOGY [place], [place] [address] (Wo rk) 07/13/2022 Office Visit Endocrinology Maile Hinojosa MD [facility] [address]ALEEL [place], [place] [address] (Wo rk) documented as of this encounter Procedures Procedure Name Priority Date/Time Associated Diagnosis Comme nts MAMMO SCREENING CAD Routine 08/06/2018 3:24 PM Visit for agustín judd Results for this AND EDDIE BILATERAL EST mammogram procedure are in the results section. documented in this encounter Results Mammo Screening Cad and Eddie Bilateral (08/06/2018 3:24 PM EST) Anatomical Region Laterality Modality Breast Bilateral Mammography Specimen (Source) Anatomical Location Collection Method / Collectio n Time Received Time / Laterality Volume Impressions 08/07/2018 9:01 AM EST BIRADS CATEGORY 0: INCOMPLETE MAMMOGRAM. Needs additional imaging evaluation. RECOMMENDATION: The patient will be contacted regarding the additional imaging. Narrative 08/07/2018 9:01 AM EST REASON FOR EXAM: Screening TECHNIQUE: CC and MLO views were obtaine d of the Bilateral breast.Computer aided detection was used. 3D tomosynthesis portillo ges were obtained in addition to 2D images. FINDINGS: Breast density:The breasts are heterogen eously dense, which may obscure small masses. Left breast. ??There are no suspicious m icrocalcifications, masses, or areas of distortion. No changes compared to prior studies. The Right breast is abnormal and additio nal imaging is required. There is a ??1.2 cm asymmetric density in the upper outer quadrant of the RIGHT breast, 6 cm from the nipple Janet Davey APRN IMG MAMMO ORDERABLES documented in this encounter Visit Diagnoses Diagnosis Visit for screening mammogram Other screening mammogram documented in this encounter Care Teams Restaurant Hostess Relationship Specialty Start Date End Date Janet Davey, SACHA PCP - General Family Medicine 06/23/18 07/12/20 [address] [place] [address] documented as of this encounter
--- OUTSIDE RECORDS SUMMARY | 2022-04-19 15:18 | XMS_ITS | Encounter Summary ---
:1965 Author Organization [place] [address] Care Team Providers Name Role Phone Petar Janet Isa GONCALVES Primary Care Provider Encounter Details Date Type Department Care Team Description 07/13/2020 Hospital Encounter Ultrasound at [facility] Ferdinand Michael Nephrolithiasis [facility] [place] [address] UROLOGY DEPT. [phone] [place], [place] [address] Social History Tobacco Use Types [...] (0.1 %) Aerosol, each nostril twice a [place]bon day SUMAtriptan (IMITREX) as needed for 1 [...] 05/01/2016 05/01/2021 20 mcg/24 hr (5 years) [id number] IUD cetirizine (ZYRTEC) 10 Take 10 mg by mouth 0 02/12/2022 mg tablet daily. tacrolimus (PROTOPIC) 1 Appl(s) Top Twice 0 08/2402/12/2022 0.1 % ointment daily KETOCONAZOLE (NIZORAL Apply topically. 0 08/24/20 10 02/12/2022 TOP) documented as of this encounter Plan of Treatment Upcoming Encounters Date Type Specialty Care Team Description 07/13/2022 Appointment Radiology Maile Hinojosa MD [facility] ENDOCRINOLOGY [place], [place] [address] (Wo rk) 07/13/2022 Office Visit Endocrinology Maile Hinojosa MD [facility] ENDOCRINOLOGY [place], [place] [address] (Wo rk) documented as of [...] number below. Electronically signed by: Antoinette Lawson, [facility] ([phone]), at 8:56 AM ?Mallika Galindo, Sect ion Chief Electronically Signed Final Report ?? 09:02 am Narrative 07/13/2020 9:03 AM EST Renal ? (Signed Final 07/13/2020 09:02 am) PATIENT INFO: ID #: ? [id number] ?: ??[birth year] (54 yrs)(F) Name: ? JESSICA ALBRIGHT ?Visit Date: 07/13/2020 07:58 am PERFORMED BY: Performed By: ? Jolene Alexander RDMS Attending: ?Mateo GILL, Mallika Ribera Referred By: ?FERDINAND MICHAEL JR Location: ? [place] SERVICE(S) PROVIDED: ??URETRO - Retroperitoneal Complete - I [id number] ? [id number] INDICATIONS: ??? stones COMPARISON: Ultrasound: 06/30/19 RIGHT [...] 09:02 am ) PATIENT INFO: ID #: [id number] : [birth year] (54 y rs)(F) Name: JESSICA ALBR[place] Visit Date: 07/13 07:58 am PERFORMED BY: Performed By: Sidra Alexander RDMS Attending: Mallika Galindo MD Referred By: FERDINAND MICHAEL JR Location: [place] SERVICE(S) PROVIDED: URETRO - Retroperitoneal Complete - [facility] 3517 [address] INDICATIONS: ? stones COMPARISON: Ultrasound: 06/30/19 RIGHT [...] below. Electronically signed by: Antoinette Lawson, Radiology [place] ([phone]), at 8:56 AM Mallika Galindo, Skimmer Electronically Signed Final Report 07/13 09:02 am Ferdinand Michael Jr., MD IMG US GEN ORDERABLES documented in this encounter Visit Diagnoses Diagnosis Nephrolithiasis Calculus of kidney documented in this encounter Care Teams Display Decorator Relationship Specialty Start Date End Date Janet Davey APRN PCP - General Family Medicine 07/13/20 [address] [place] [address] documented as of this encounter
--- OUTSIDE RECORDS SUMMARY | 2022-04-19 15:18 | XMS_ITS | Encounter Summary ---
:1965 [place] [address] Care Team Providers Name Role Phone Suzie Mcintyre APRN Primary Care Provider Encounter Details Date Type Department Care Team Description 03/15/2017 Laboratory Appointment Lab 3L [facility] [place] [address] Social History Tobacco Use Types Packs/Day [...] Description 07/13/2022 Appointment Radiology Maile Hinojosa MD [facility] ENDOCRINOLOGY [place], [place] [address] (Wo rk) 07/13/2022 Office Visit Endocrinology Maile Hinojosa MD [facility] DR [address] [place], [place] [address] (Wo rk) documented as of this encounter Procedures Procedure Name Priority Date/Time Associated Diagnosis Comme nts BASIC METABOLIC STAT 03/15/2017 2:36 PM Nephrolithiasis Res ults for this PANEL (NON-FASTING) EDT procedur e are in the results section. documented in this encounter Results Basic Metabolic Panel (non-fasting) (03/15/2017 2:36 PM EDT) P athologist Signature Glucose Lvl 93 65 - 199 [facility] mg/dL [facility] Comment: Diabetes: >=200 mg/dL plus symp toms BUN 15 8 - 18 mg/dL [facility] Creatinine 0.82 0.70 - 1.20 mg/dL [facility] Comment: Please note that the pediatric reference intervals supplied above were not validated at [facility]. Results from pediatri c patients should be interpreted in conjunction to the patient's age, height and muscle mass. Sodium 137 135 - 145 mmol/L [facility] Potassium 4.1 3.5 - 5.0 mmol/L [facility] Comment: Please note: ??Patients with [...] Anion Gap 12 5 - 15 mmol/L [facility] Calcium 9.3 8.5 - 10.5 mg/dL [facility] Estimated GFR >60 >=60 [facility] Comment: This estimated GFR (eGFR) value [...] the following links into your internet browser. [email or web address] [email or web address] Specimen Anatomical Collection Method Collection Time Receive d Time (Source) Location / / Volume Laterality Blood specimen 03/15/2017 2:36 PM 017 2:47 (specimen) EDT PM EDT Resulting Agency Comment Spec In Lab Luis Michael Jr., MD CHEMISTRY ORDERABLES Performing Organization Address City/State/[place] [address] documented in this encounter Visit Diagnoses Diagnosis Nephrolithiasis Calculus of kidney documented in this encounter Care Teams Manager Software Relationship Specialty Start Date End Date Suzie Mcintyre APRN PCP - General Family Medicine 02/28/17 06/26/17 documented as of this encounter
--- OUTSIDE RECORDS SUMMARY | 2022-04-19 15:18 | XMS_ITS | Encounter Summary ---
:1965 Author Organization [facility] [place] [address] Care Team Providers Name Role Phone Doreen Larios Primary Care Provider [phone] Encounter Details Date Type Department Care Team Description 06/11/2018 Office Visit Urology at [facility] Ferdinand [place] History of [facility] MD Jules nephrolithiasis [facility] [address] UROLOGY DEPT. [phone] [place] [address] Social History Tobacco Use Types Packs/Day Years [...] Hinojosa MD [facility] ENDOCRINOLOGY [place], [place] [address] (Wo rk) 07/13/2022 Office Visit Endocrinology Maile Hinojosa MD [facility] ENDOCRINOLOGY [place], [place] [address] (Wo rk) documented as of [...] j carlos number below. Electronically signed by: Celine zee MD, [facility] ([phone]), at 3:56 PM ?Celine Anna, Staff Physician Electronically Signed Final Report ?? 04:04 pm Narrative 06/30/2019 4:05 PM EST Renal ? (Signed Final 06/30/2019 04:04 pm) PATIENT INFO: ID #: ? [id number] ?: ??[birth year] (53 yrs) Name: ? JESSICA GTZ ?Visit Date: 06/30/2019 03:50 pm PERFORMED BY: Performed By: ? Humberto Donnelly RDMS Attending: ?Shoshana GILL, There se Gee. Referred By: ?FERDINAND PENNINGTON Location: ? [place] SERVICE(S) PROVIDED: ??URETRO - Retroperitoneal Complete - I [id number] ? [address] INDICATIONS: ??? stones COMPARISON: Ultrasound: Renal / [...] 04:04 pm ) PATIENT INFO: ID #: [id number] : 61 (53 y rs) Name: JESSICA GTZ Visit Date: 06/30 03:50 pm PERFORMED BY: Performed By: Humberto Donnelly RDMS Attending: Celine Anna MD Referred By: FERDINAND PENNINGTON JR Location: [place] SERVICE(S) PROVIDED: URETRO - Retroperitoneal Complete - [facility] 3517 [address] INDICATIONS: ? stones COMPARISON: Ultrasound: Renal / [...] below. Electronically signed by: Celine zee MD, [facility] ([phone]), at 3:56 PM Celine Anna, Staff Physician Electronically Signed Final Report 06/30 04:04 pm Ferdinand [place] Jr., MD [facility] GEN ORDERABLES documented in this encounter Visit Diagnoses Diagnosis History of nephrolithiasis Personal history of urinary calculi History of nephrolithiasis Personal history of urinary calculi documented in this encounter Care Teams Management Instructor Relationship Specialty Start Date End Date Doreen Larios PA PCP - General Family Medicine 05/16/18 06/22/18 documented as of this encounter
--- OUTSIDE RECORDS SUMMARY | 2022-04-19 15:18 | XMS_ITS | Encounter Summary ---
:1965 [place] [address] Care Team Providers Name Role Phone Suzie Mcintyre APRN Primary Care Provider Encounter Details Date Type Department Care Team Description 04/18/2017 Anesthesia Event Main Operating Room Isa [facility] MD [facility] Victor Manuel [place] [address] [place] [address] [phone] (Wo rk) Anesthesia Record Procedure Summary Procedure [...] KEON Peñaloza, [place], KEON swartz), left; xvun-urr-coysxz catheter system; 20 gauge; Marisol; distraction, intradermal [...] Ballesteros MD - 04/18/2017 3:30 PM EDT [facility] Department of Anesthesiology Post-procedure Note Patient: Stacy Albright Procedure Summary Date Anesthesia Start Anesthesia Stop Room / Location 04/18/17 1247 1343 MH OR 28 / [facility] MAIN OR Procedure Diagnosis Surgeon Responsible Provider CYSTO, FULGURATION\BLADDER LESION\W\WO BX\LESS THAN 0.5CM (WRVU 4.05) (N/A Bladder) (small bladder lesion) Luis Michael Jr., MD Chaimberg, Kathleen H, MD All Anesthesia Providers: Anesthesiologist: Marcelle Marquez MD Wash Helper: Romy Ballesteros MD Last (1hr) Vitals: BP 118/80 (04/18/17 1445) Temp Pulse Resp SpO2 99 % (04/18/17 1500) Patient Location: PACU/[facility] Level of Consciousness: Awake and Alert Pain [...] History: Procedure Laterality Date ??? CREATED BY Volofy E.S.W.LJoseph([employer]) Procedure Date: 01/16/2008 ??? KNEE SURGERY 03/01/14 [...] Description 07/13/2022 Appointment Radiology Maile Hinojosa MD [facility] DR [address] [place], [place] [address] (Wo silva) 07/13/2022 Office Visit Endocrinology Maile Hinojosa MD [facility] DR [address] [place], [place] [address] (Wo rk) documented as of this encounter Visit Diagnoses Not on filedocumented in this encounter Administered Medications Inactive Administered Medications - up to 3 most recent administrations Medication Order MAR Action Action Date Dose Rate Site ceFAZolin (ANCEF) 2g in dextrose 5% Given 04/18/2017 1:08 PM EDT 2 g 100 mL 2 g, Intravenous, SENIOR MARKET RESEARCH ANALYST TO O.R., 1 dose, On Shanta 04/18/17 [...] Routine documented in this encounter Care Teams Delivery Clerk Relationship Specialty Start Date End Date Suzie Mcintyre, PERCUSSION INSTRUMENT REPAIRER PCP - General Family Medicine 02/28/17 06/26/17 documented as of this encounter
--- OUTSIDE RECORDS SUMMARY | 2022-04-19 15:18 | XMS_ITS | Encounter Summary ---
:1965 Author Organization [facility] [place] [address] Care Team Providers Name Role Phone Suzie Mcintyre APRN Primary Care Provider Reason for Visit Reason Comments Follow-up Encounter Details Date Type Department Care Team Description 04/09/2017 Office Visit Urology at [facility] Luis Michael History of renal stone [facility] [place] [address] [address]PT. [phone] [place], [place] [address] Social History Tobacco Use Types [...] to void please call our office at [phone] before 5PM or [phone] after hours. Please call if: * you have copious blood in your urine * fevers greater than 101.3 F * you are unable to void The number for questions is [phone] before 5 PM weekdays and [phone] after 5 PM and weekends. Follow-up: with [...] negative cysto, I also suggested she undergo BESSEMER CONVERTER BLOWER evaluation to assess for possible BESSEMER CONVERTER BLOWER source for bloody spotting. In the interval [...] Description 07/13/2022 Appointment Radiology Maile Hinojosa MD [facility] ENDOCRINOLOGY [place], [place] [address] (Wo rk) 07/13/2022 Office Visit Endocrinology Maile Hinojosa MD [facility] ENDOCRINOLOGY [place], [place] [address] (Wo rk) documented as of [...] calculi documented in this encounter Care Teams Overhead Foreman Relationship Specialty Start Date End Date Suzie Mcintyre APRN PCP - General Family Medicine 02/28/17 06/26/17 documented as of this encounter
--- OUTSIDE RECORDS SUMMARY | 2022-04-19 15:18 | XMS_ITS | Encounter Summary ---
:1965 [place] [address] Care Team Providers Name Role Phone Suzie Mcintyre APRN Primary Care Provider Encounter Details Date Type Department Care Team Description 04/18/2017 Surgery Main Operating Room Luis Michael Jr., Ken [place], [facility] FULGURATION\BLADDER [facility] LESION\W\WO BX\[facility] DR THAN 0.5CM (WRVU 4.05) [facility] [place] [address] [place] [address] [phone] (Wo rk) Social History Tobacco Use Types [...] directed NASONEX 50 mcg/actuation 0 05/18/2016 06/11/2018 [place], Non-Aerosol levonorgestrel (MIRENA) 1 each by Intrauterine route once. Lot [id number] 0 05/01/2016 05/01/2021 20 mcg/24 hr (5 years) [id number] IUD omeprazole (PRILOSEC) 20 PRN 0 03/22/2016 [...] Procedure Laterality Date ??? CREATED BY INTERFACE EFamilia(MSUROL) Procedure Date: 01/16/2008 ??? KNEE SURGERY 03/01/14 [...] 8 patch 11 ??? NASONEX 50 mcg/actuation [place], Non-Aerosol 0 ??? SUMAtriptan (IMITREX) 100 mg Tablet as needed for Migraine. 1 ??? levonorgestrel (MIRENA) 20 mcg/24 hr (5 years) IUD 1 each by Intrauterine route once. Lot [id number] ??? multivitamin (THERAGRAN) tablet Take 1 tablet [...] Operative Note Patient Name: Stacy Albright : [id number] MR#: [id number] Case Date: 04/18/2017 Surgeon: Surgeon(s) and Role: [...] Operative Note Patient Name: Stacy Albright : [id number] MR#: [id number] Case Date: 04/18/2017 Surgeon: Surgeon(s) and Role: [...] Description 07/13/2022 Appointment Radiology Maile Hinojosa MD [facility] MEDICAL [facility] [address] [place] [address] (Wo rk) 07/13/2022 Office Visit Endocrinology Maile Hinojosa MD [facility] [address] [place] 0[address] (Wo rk) documented as of this [...] Component Value Ref Test Analysis Performed At [facility] Range Method Time Signature Surgical [id number] ? Location: [facility] [place]; A [facility] Report The signing pathologist has (i) examined the relevant preparation(s) for the [facility] specimen(s) and (ii) rendered or confirmed the [...] Organization Address City/State/[place] [address] Specimen to Pathology (surgical or derm) (04/18/2017 1:17 PM EDT) Specimen Anatomical Collection Method Collection Time Receive d Time (Source) Location / / Volume Laterality AP Specimen 04/18/2017 1:17 PM 7 1:17 EDT PM EDT Narrative [facility] - 04/18/2017 1:17 PM EDT Specimen requisition ordered. ??Separate Pathology report to follow Luis Michael Jr., MD PATHOLOGY/CYTOLOGY ORDERABLE S Performing Organization Address City/State/[place] [address] documented in this encounter [...] Provider: Romy Ballesteros MD) 2 g, Intravenous, REAL ESTATE ASSET MANAGER TO O.R., 1 dos e, Shanta 04/18/17 [...] Routine documented in this encounter Care Teams Case Packer Relationship Specialty Start Date End Date Suzie Mcintyre APRN PCP - General Family Medicine 02/28/17 06/26/17 documented as of this encounter
--- OUTSIDE RECORDS SUMMARY | 2022-04-19 15:18 | XMS_ITS | Encounter Summary ---
:1965 Author Organization [facility] [place] [address] Care Team Providers Name Role Phone Janet Davey APRN Primary Care Provider Reason for Visit Reason Comments Medication Refill Encounter Details Date Type Department Care Team Description 09/16/2019 [facility] Victor Manuel cifuentes OBSTETRICS & [place] [address] [place] [address] [phone] (Wo rk) Social History Tobacco Use Types [...] Maile Hinojosa MD [facility] ENDOCRINOLOGY [place], [place] [address] (Wo rk) 07/13/2022 Office Visit Endocrinology Maile Hinojosa MD [facility] ENDOCRINOLOGY [place], [place] [address] (Wo rk) documented as of this encounter Visit Diagnoses Not on filedocumented in this encounter Care Teams Manager Video Relationship Specialty Start Date End Date Janet Davey APRN PCP - General Family Medicine 06/23/18 07/12/20 [address] [place] [address] documented as of this encounter
--- OUTSIDE RECORDS SUMMARY | 2022-04-19 15:18 | XMS_ITS | Encounter Summary ---
:1965 Author Organization [facility] [place] [address] Care Team Providers Name Role Phone Suzie Mcintyre APRN Primary Care Provider Encounter Details Date Type Department Care Team Description 06/18/2017 Orders Only Obstetrics and Gynecology [place] [address] Social History Tobacco Use Types Packs/Day [...] MD [facility] ENDOCRINOLOGY [place], [place] [address] (Wo rk) 07/13/2022 Office Visit Endocrinology Maile Hinojosa MD [facility] ER DR [address]MO[address] [place], [place] [address] (Wo rk) documented as of this encounter Visit Diagnoses Not on filedocumented in this encounter Care Teams Electrical Plumbing Supervisor Relationship Specialty Start Date End Date Suzie Mcintyre APRN PCP - General Family Medicine 02/28/17 06/26/17 documented as of this encounter
--- OUTSIDE RECORDS SUMMARY | 2022-04-19 15:18 | XMS_ITS | Encounter Summary ---
:1965 Author Organization [facility] [place] [address] Care Team Providers Name Role Phone Suzie Mcintyre APRN Primary Care Provider Reason for Visit Reason Comments Hematuria Encounter Details Date Type Department Care Team Description 04/09/2017 Office Visit Urology at [facility] Luis Michael Microscopic hematuria [facility] [place] [address] UR[address] DEPT. [phone] [place], [place] [address] Social History Tobacco Use Types [...] Description 07/13/2022 Appointment Radiology Maile Hinojosa MD [facility] ENDOCRINOLOGY [place], [place] [address] (Wo rk) 07/13/2022 Office Visit Endocrinology Maile Hinojosa MD [facility] DR JALEEL [place], [place] [address] (Wo rk) documented as of this encounter Procedures Procedure Name Priority Date/Time Associated Diagnosis Comme nts CYSTOSCOPY Routine 04/09/2017 10:36 AM History of renal Resu lts for this EDT stone procedure are i n the results section . documented in this encounter Visit Diagnoses Diagnosis Microscopic hematuria documented in this encounter Care Teams Intermediate Accountant Relationship Specialty Start Date End Date Suzie Mcintyre APRN PCP - General Family Medicine 02/28/17 06/26/17 documented as of this encounter
--- OUTSIDE RECORDS SUMMARY | 2022-04-19 15:18 | XMS_ITS | Encounter Summary ---
:1965 Author Organization [facility] Address [facility] [place] [address] Care Team Providers Name Role Phone Sarah Young APRN Primary Care Provider [phone] Encounter Details Date Type Department Care Team Description 08/05/2017 Office Visit Obstetrics and Ida Ron, Encounter for Gynecology at [facility] INSPECTOR SEMICONDUCTOR WAFER gynecological [facility]ICAL examinati on without Drive [address] DR abnormal finding [place], [place] OBSTETRICS & [address] GYNECOLOGY [phone] [place], [place] [address] Social History Tobacco Use Types [...] in this encounter Progress Notes Ida Ron, INSPECTOR SEMICONDUCTOR WAFER - 08/05/2017 7:00 AM EST Reason for visit: Annual stereotyper exam ROS: BUSINESS OFFICE REPRESENTATIVE: No urinary inc, no vaginal itching, burning, [...] History: Procedure Laterality Date ??? CREATED BY ENOCH Morgan(MSUROL) Procedure Date: 01/16/2008 ??? KNEE SURGERY 03/01/14 Right knee; patella surgery ??? LITHOTRIPSY ? ? PRO CYSTOURETHROSCOPY, FULGUR <.5CM LESN N/A 04/18/2017 CYSTO, FULGURATION\BLADDER LESION\W\WO BX\LESS THAN 0.5CM (WRVU 4.05) performed by Luis Michael Jr., MD at [facility] MAIN OR BUSINESS OFFICE REPRESENTATIVE History: Pt is a 51 year old [...] a new home in their town of [place], [place]. 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 Eats relatively healthy with fruits, vegetables, yogurt, [...] azelastine (ASTELIN) 137 mcg (0.1 %) Aerosol, [place] instill 1 spray into each nostril twice [...] 1 each by Intrauterine route once. Lot [id number] ??? omeprazole (PRILOSEC) 20 mg Capsule, Delayed [...] confirms, good tone, no hemorrhoids A: Unremarkable stereotyper exam Cervical erosion possible due to IUD [...] History: Procedure Laterality Date ??? CREATED BY [employer](ThermogenicsUROL) Procedure Date: 01/16/2008 ??? KNEE SURGERY 03/01/14 Right knee; patella surgery ??? LITHOTRIPSY ? ? PRO CYSTOURETHROSCOPY, FULGUR <.5CM LESN N/A 04/18/2017 CYSTO, FULGURATION\BLADDER LESION\W\WO BX\LESS THAN 0.5CM (WRVU 4.05) performed by Luis Michael Jr., MD at [facility] MAIN OR Social History Social History ??? [...] a new home in [place] town of [place], [place]. 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 Eats relatively healthy with fruits, vegetables, [...] [facility] [address] [place], [place] [address] (Wo rk) 07/13/2022 Office Visit Endocrinology Maile Hinojosa MD [facility] ENDOCRINOLOGY [place], [place] [address] (Wo rk) documented as of this encounter Procedures Procedure Name Priority Date/Time Associated Diagnosis Comme nts BUSINESS OFFICE REPRESENTATIVE CYTOLOGY Routine 08/05/2017 9:41 Results for this INTERPRETATION AM EST procedure are in the results section. BUSINESS OFFICE REPRESENTATIVE CYTOLOGY FINAL Routine 08/05/2017 9:41 Result s for this REPORT AM EST procedure are i n the results section. CYTOPATHOLOGY Routine 08/05/2017 9:41 Encounter for Results fo r this GYNECOLOGICAL AM EST gynecological procedure are in examination without the resu lts abnormal finding section. documented in this encounter Results Gasket Former Cytology Final Report (08/05/2017 9:41 AM EST) Component Value Ref Test Analysis Performed At [facility] Range Method Time Signature Gasket Former Cytology ? Location: [address] [place] [address] Final Report MALONE The signing pathologist has (i) examined the relevant preparation(s) for the MEMORIAL specimen(s) and (ii) rendered or confirmed the diagnosis(es) . HOSPITAL LABORATORY . ? Gasket Former Final DIAGNOSIS Normal Negative for Intraepithelial Lesion or Malignancy (NILM). For consensus guidelines for the management of c ervical cancer screening test results, please see: ?? http://www.asccp.org . Electronically signed by: ??Heladio CÁRDENAS(ASCP)Salma Verified: ??08/16/2017 ?Furniture Assembler Performed at: ??-[facility] Dept. of Pathology, [place], [place] HPV RESULTS Not applicable (HPV testing either not indicated or not requested by clinician). STATEMENT OF ADEQUACY Specimen submitted is satisfactory. Endocervical component present. CLINICAL INFORMATION HPV Option: ?Reflex HPV Preparation: ? Liquid based Pap Specimen Source: ? Cervical/Endocervical LMP: ? n/a Hormones?: ? Yes Hysterectomy?: ? No ?: ? No ?: ? No I.U.D.?: ? Yes Pelvic Radiation: ?No Prior BUSINESS OFFICE REPRESENTATIVE Therapy?: ?Cryotherapy Hist Abnl Pap/Biopsy?: ?? Yes, [...] evalu ated with the assistance of the Honestly NowPrep Pap Test Imaging System. Note: The Pap test is a screening test for cervical cancer with an inherent false-negative rate dependent upon several variables. For further information please contact the [facility] Laboratory. Reference: Devika LEON. Polyethylene Combiner of Pap Smear Results. In: Sukumar BS, Roni CALLEJAS, meghan spangler. The Pap Smear. [place]: Arnjaziel, 2002: 71-77. Specimen (Source) Anatomical Collection Method Collection Time Re ceived Time Location / / Volume Laterality 08/05/2017 9:41 AM EST Ida Ron APRN PATHOLOGY/CYTOLOGY ORDERABLE S Performing Organization Address City/State/[place] [address] BUSINESS OFFICE REPRESENTATIVE Cytology Interpretation (08/05/2017 9:41 AM EST) [facility] Method Time Signature Gasket Former Cytology NILM [facility] Interpretation [facility] Comment: Gasket Former Cytology Final Report Acces kendall: [id number] Endocervical Component Present [facility] LAB[facility] Specimen Anatomical Collection Method Collection Time Receive d Time (Source) Location / / Volume Laterality AP Specimen 08/05/2017 9:41 AM 7 EST 10:17 AM EST Ida L Asaf GONCALVES PATHOLOGY/CYTOLOGY ORDERABLE S Performing Organization Address City/[facility]/[place]IP [place] [address] Cytopathology Gynecological (08/05/2017 9:41 AM EST) Specimen Anatomical Collection Method Collection Time Receive d Time (Source) Location / / Volume Laterality AP Specimen 08/05/2017 9:41 AM 7 9:41 EST AM EST Narrative [facility]Y - 08/05/2017 9:41 AM EST Specimen requisition ordered. ??Separate Pathology report to follow Ida Dayna Ron APRN PATHOLOGY/CYTOLOGY ORDERABLE S Performing Organization Address City/[facility] Phon e Number [address] documented in this encounter Visit Diagnoses Diagnosis Encounter for gynecological examination without abnormal finding Routine gynecological examination documented in this encounter Care Teams Wrist Liner Relationship Specialty Start Date End Date Sarah Yougn APRN PCP - General Family Medicine 06/27/17 05/15/18 [address] [place] [address] documented as of this encounter
--- OUTSIDE RECORDS SUMMARY | 2022-04-19 15:18 | XMS_ITS | Encounter Summary ---
:1965 Author Organization [facility] Address [facility] [address] [place] [address] Care Team Providers Name Role Phone PetarJanet Isa GONCALVES Primary Care Provider Encounter Details Date Type Department Care Team Description 07/12/2020 Orders Only Endocrinology at [facility] Cuate Pearl MD Osteoporosis, [facility] DR osteoporosis type, [place] [address] ENDOCRINOLOGY unspecified [phone] [place], [place] [address] pathological fracture [phone] presence (Work) Social History Tobacco Use Types [...] Description 07/13/2022 Appointment Radiology Maile Hinojosa MD [facility] ER [address]MO[address] [place], [place] [address] (Wo rk) 07/13/2022 Office Visit Endocrinology Maile Hinojosa MD [facility] ER DR [address] [place], [place] [address] (Wo rk) documented as of this encounter Visit Diagnoses Diagnosis Osteoporosis, unspecified osteoporosis t ype, unspecified pathological fracture presence documented in this encounter Care Teams Gas Golf Cart Repairer Relationship Specialty Start Date End Date Janet Davey, MOVIE PROJECTIONIST PCP - General Family Medicine 06/23/18 07/12/20 [address] [place] [address] documented as of this encounter
--- OUTSIDE RECORDS SUMMARY | 2022-04-19 15:18 | XMS_ITS | Encounter Summary ---
:1965 Author Organization [facility] [place] [address] Care Team Providers Name Role Phone Petar Janet Isa GONCALVES Primary Care Provider Reason for Referral Diagnostic Test (Routine) - Closed Specialty Diagnoses / Procedures Referred By Contact Refer red To Contact Radiology Diagnoses Osteoporosis, unspecified osteoporosis type, unspecified pathological fracture presence Cuate Hall MD [facility] Rad Xray Procedures DXA Central Spine, Hip, and/or Whole Body (Generic) [facility] [address] [place] [facility] [place] [address] [place] [address] Referral ID Status Reason Start Date Expiration Date Visits V isits Requested Authorized [id number] Closed Specialty 03/14/2020 09/14/2021 1 1 Service Requested Reason for Visit Diagnostic Test (Routine) - Closed Specialty Diagnoses / Procedures Referred By Contact Refer red To Contact Radiology Diagnoses Osteoporosis, unspecified osteoporosis type, unspecified pathological fracture presence Cuate Hall MD [facility] Rad Xray Procedures DXA Central Spine, Hip, and/or Whole Body (Generic) [facility] DR [place] [facility] [place] [address] [place] [address] Referral ID Status Reason Start Date Expiration Date Visits V isits Requested Authorized [id number] Closed Specialty 03/14/2020 09/14/2021 1 1 Service Requested Encounter Details Date Type Department Care Team Description 07/07/2020 Hospital Encounter XRay at [facility] Cuate Hall, Osteoporosis, [address] [place] unspecified Normal, [place] [place], [address] CENTER unspecyoselyn [phone] ENDOCRINOLOGY pathological [place] presence [address] Social History Tobacco Use Types Packs/Day Years [...] (0.1 %) Aerosol, each nostril twice a Left Hand day SUMAtriptan (IMITREX) as needed for 1 [...] 05/01/2016 05/01/2021 20 mcg/24 hr (5 years) [id number] IUD cetirizine (ZYRTEC) 10 Take 10 mg by mouth 0 02/12/2022 mg tablet daily. tacrolimus (PROTOPIC) 1 Appl(s) Top Twice 0 08/2402/12/2022 0.1 % ointment daily KETOCONAZOLE (NIZORAL Apply topically. 0 08/24/20 10 02/12/2022 TOP) documented as of this encounter Plan of Treatment Upcoming Encounters Date Type Specialty Care Team Description 07/13/2022 Appointment Radiology Maile Hinojosa MD [facility] ENDOCRINOLOGY [place], [place] [address] (Wo rk) 07/13/2022 Office Visit Endocrinology Maile Hinojosa MD [facility] ENDOCRINOLOGY [place], [place] [address] (Wo rk) documented as of [...] measurements a nd plots are available in [facility] under the imaging tab. Paper copies will be sent to providers without E- access. If you have received this report without [facility] data sheet and do not have access to [employer] please contact Radiology [facility] at [phone] Saturday thru Saturday 8am-4pm. Thank you for letting us participate in the care of this patient. For questions regarding this report, please contact [facility] number below. ? Narrative 07/07/2020 5:05 PM [...] measurements a nd plots are available in [facility] under the imaging tab. Paper copies will be sent to providers without E- access. If you have received this report without e data sheet and do not have access to [employer] please contact Radiology [facility] at [phone] Saturday thru Saturday 8am-4pm. Thank you for letting us participate in the care of this patient. For questions regarding this report, please contact e number below. Cuate Hall MD IMG DEXA ORDERABLES documented in this encounter Visit Diagnoses Diagnosis Osteoporosis, unspecified osteoporosis t ype, unspecified pathological fracture presence documented in this encounter Care Teams Plant Production Worker Relationship Specialty Start Date End Date Janet Davey APRN PCP - General Family Medicine 06/23/18 07/12/20 [address] [place] [address] documented as of this encounter
--- OUTSIDE RECORDS SUMMARY | 2022-04-19 15:18 | XMS_ITS | Encounter Summary ---
:1965 Author Organization [facility] [place] [address] Care Team Providers Name Role Phone Suzie Mcintyre APRN Primary Care Provider Encounter Details Date Type Department Care Team Description 03/18/2017 Telephone Urology at [facility] Luis Michael Jr., MD [facility] [place] [address] UROLOGY DEPT. [phone] [place], [place] [address] (Wo rk) Social History Tobacco [...] negative cysto, I also suggested she undergo MARKETING PROPOSAL COORDINATOR evaluation to assess for possible MARKETING PROPOSAL COORDINATOR source for bloodyspotting. She will proceed in [...] 07/13/2022 Appointment Radiology Maile Hinojosa MD [facility] ENDOCRINOLOGY [place], [place] [address] (Wo rk) 07/13/2022 Office Visit Endocrinology Maile Hinojosa MD [facility] ENDOCRINOLOGY [place], [place] [address] (Wo rk) documented as of this encounter Visit Diagnoses Not on filedocumented in this encounter Care Teams Hall Clerk Relationship Specialty Start Date End Date Suzie Mcintyre APRN PCP - General Family Medicine 02/28/17 06/26/17 documented as of this encounter
--- OUTSIDE RECORDS SUMMARY | 2022-04-19 15:18 | XMS_ITS | Encounter Summary ---
:1965 Author Organization [facility] [place] [address] Care Team Providers Name Role Phone Petar Janet Isa GONCALVES Primary Care Provider Encounter Details Date Type Department Care Team Description 06/30/2019 Hospital Encounter Ultrasound at [facility] Ferdinand Pennington History of [facility] MD Jules nephrolithiasis [place], [place] CENTER [address] UROLOGY DEPT. [phone] [place] [address] Social History Tobacco Use Types Packs/Day Years [...] 05/01/2016 05/01/2021 20 mcg/24 hr (5 years) [id number] IUD cetirizine (ZYRTEC) 10 Take 10 mg by mouth 0 02/12/2022 mg tablet daily. tacrolimus (PROTOPIC) 1 Appl(s) Top Twice 0 08/2402/12/2022 0.1 % ointment daily KETOCONAZOLE (NIZORAL Apply topically. 0 08/24/20 10 02/12/2022 TOP) documented as of this encounter Plan of Treatment Upcoming Encounters Date Type Specialty Care Team Description 07/13/2022 Appointment Radiology Maile Hinojosa MD [facility] ER [address] [place], [place] [address] (Wo rk) 07/13/2022 Office Visit Endocrinology Maile Hinojosa MD [facility] ER [address] [place], [place] [address] (Wo rk) documented as of [...] below. Electronically signed by: Celine zee MD, [facility] [place] [facility] ([phone]), at 3:56 PM ?Celine Anna, Staff Physician Electronically Signed Final Report ?? 04:04 pm Narrative 06/30/2019 4:05 PM EST Renal ? (Signed Final 06/30/2019 04:04 pm) PATIENT INFO: ID #: ? [id number] ?: ??[birth year] (53 yrs) Name: ? JESSICA GTZ ?Visit Date: 06/30/2019 03:50 pm PERFORMED BY: Performed By: ? Humberto Donnelly RDMS Attending: ?Shoshana GILL, There se Narayan Referred By: ?FERDINAND PENNINGTON JR Location: ? [place] SERVICE(S) PROVIDED: ??URETRO - Retroperitoneal Complete - I [id number] ? [id number] INDICATIONS: ??? stones COMPARISON: Ultrasound: Renal / [...] : Procedure Note Celine Anna MD - 11/05/2019Forma tting of this note might be different from the original. Renal (Signed Final 06/30/2019 04:04 pm ) PATIENT INFO: ID #: [id number] : [birth year] (53 y rs) Name: JESSICA GTZ Visit Date: 06/30 03:50 pm PERFORMED BY: Performed By: Humberto Donnelly RDMS Attending: Celine Anna MD Referred By: FERDINAND PENNINGTON JR Location: [place] SERVICE(S) PROVIDED: URETRO - Retroperitoneal Complete - [id number] INDICATIONS: ? stones COMPARISON: Ultrasound: Renal / [...] Electronically signed by: Celine zee MD, Radiology [place] ([phone]), at 3:56 PM Celine Anna, Staff Physician Electronically Signed Final Report 06/30 04:04 pm Ferdinand Pen[place] Jr., MD [facility] GEN ORDERABLES documented in this encounter Visit Diagnoses Diagnosis History of nephrolithiasis Personal history of urinary calculi documented in this encounter Care Teams Poacher Wringer Operator Relationship Specialty Start Date End Date Janet Davey APRN PCP - General Family Medicine 06/23/18 07/12/20 [address] [place] [address] documented as of this encounter
--- OUTSIDE RECORDS SUMMARY | 2022-04-19 15:18 | XMS_ITS | Encounter Summary ---
:1965 Author Organization [facility] Address [place] [address] Care Team Providers Name Role Phone Sarah Young APRN Primary Care Provider [phone] Encounter Details Date Type Department Care Team Description 06/27/2017 Office Visit Endocrinology at [facility] Cuate Pearl MD Osteoporosis, [facility] [address] DR osteoporosis type, [place] [address] ENDOCRINOLOGY unspecified [phone] [place], [place] [address] pathological fracture [phone] presence (Work) Social History Tobacco Use Types [...] possible hypercalciuria). 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 and does not have any significant medical [...] Description 07/13/2022 Appointment Radiology Maile Hinojosa MD [facility]ICAL [facility] ENDOCRINOLOGY [place], [place] [address] (Wo rk) 07/13/2022 Office Visit Endocrinology Malie Hinojosa MD [facility] ENDOCRINOLOGY [place], [place] [address] (Wo rk) documented as of [...] encounter Results Calcium (06/27/2017 3:22 PM EDT) P athologist Signature Calcium 9.1 8.5 - 10.5 [facility] mg/dL [facility] Specimen Anatomical Collection Method Collection Time Receive d Time (Source) Location / / Volume Laterality Blood specimen 06/27/2017 3:22 PM 017 3:29 (specimen) EDT PM EDT Resulting Agency Comment Spec In Lab Cuate Hall MD CHEMISTRY ORDERABLES Performing Organization Address City/State/ZIP Code Phon e Number [address] Vitamin D, 25-Hydroxy (06/27/2017 3:22 PM EDT) P athologist Signature 25-OH Vit D 32 30 - 100 ALBERT LEMONSCOCK Total ng/mL [facility] Comment: Deficient <10 ng/mL Insufficient 10 to 29 ng/mL Sufficient 30 to 100 ng/mL Potential Intoxication >100 ng/mL According to the [place] National Osteoporosi s Foundation, Vitamin D concentrations >30 ng/mL are sufficient to protect bone health. ??The National Kidney Foundation has similarly stated that pat ients with Vitamin D concentrations <30ng/mL should be considered to be insu fficient or deficient. http://[employer]nkf-guidelines http://[employer]/nejm-VitD The [employer] Vitamin D Immunoassay detec [...] Organization Address City/State/[place] [address] PTH (06/27/2017 3:22 PM EDT) P athologist Signature PTH 41 15 - 65 ALBERT DAUGHERTYASHUTOSH pg/mL [facility] Specimen Anatomical Collection Method Collection Time Receive d Time (Source) Location / / Volume Laterality Blood specimen 06/27/2017 3:22 PM 017 3:29 (specimen) EDT PM EDT Resulting Agency Comment Spec In Lab Cuate Hall MD CHEMISTRY ORDERABLES Performing Organization Address City/State/[place] [address] documented in this encounter Visit Diagnoses Diagnosis Osteoporosis, unspecified osteoporosis t ype, unspecified pathological fracture presence documented in this encounter Care Teams Store Facility Technician Relationship Specialty Start Date End Date Sarah Young APRN PCP - General Family Medicine 06/27/17 05/15/18 [address] [place] [address] documented as of this encounter
--- OUTSIDE RECORDS SUMMARY | 2022-04-19 15:19 | XMS_ITS | Encounter Summary ---
:1965 Author Organization [facility] [address] Care Team Providers Name Role Phone Monica Garcia MD Primary Care Provider Encounter Details Date Type Department Care Team Description 06/18/2014 Hospital Encounter Mammography at [facility], DR KENZIE Dos [facility] Monica Garcia MD [address] [place] [address] [place] [address] Social History Tobacco Use Types [...] inhaler daily as needed (winter time). Evening [employer] 500 0 08/24/2010 01/24/2015 mg Cap [...] Description 07/13/2022 Appointment Radiology Maile Hinojosa MD [facility] ENDOCRINOLOGY [place], [place] [address] (Wo rk) 07/13/2022 Office Visit Endocrinology Maile Hinojosa MD [facility] ENDOCRINOLOGY [place], [place] [address] (Wo rk) documented as of this encounter [...] dense. No change or finding worrisome for shahriar priest is seen in either breast. On [...] mammogram documented in this encounter Care Teams Drill Press Operator For Metal Relationship Specialty Start Date End Date Monica Garcia MD PCP - General 01/06/13 02/27/17 [address] [place] [address] documented as of this encounter
--- OUTSIDE RECORDS SUMMARY | 2022-04-19 15:19 | XMS_ITS | Encounter Summary ---
:1965 Author Organization [facility] [place] [address] Care Team Providers Name Role Phone Suzie Mcintyre APRN Primary Care Provider Encounter Details Date Type Department Care Team Description 02/19/2017 Telephone Urology at [facility] Luis Michael Jr., MD [facility] [place] [address] UROLOGY DEPT. [phone] [place], [place] [address] (Wo rk) Social History Tobacco [...] Description 07/13/2022 Appointment Radiology Maile Hinojosa MD [facility] ER DR [address]ALE[address] [place] [address] (Wo rk) 07/13/2022 Office Visit Endocrinology Maile Hinojosa MD [facility] ENDOCRINOLOGY [place], [place] [address] (Wo rk) documented as of this encounter Visit Diagnoses Not on filedocumented in this encounter Care Teams Rope Silica Machine Operator Relationship Specialty Start Date End Date Suzie Mcintyre APRN PCP - General Family Medicine 02/28/17 06/26/17 documented as of this encounter
--- OUTSIDE RECORDS SUMMARY | 2022-04-19 15:19 | XMS_ITS | Encounter Summary ---
:1965 Author Organization [facility] [place] [address] Care Team Providers Name Role Phone Suzie Mcintyre APRN Primary Care Provider Reason for Referral Diagnostic Test (Routine) - Closed Specialty Diagnoses / Procedures Referred By Contact Refer red To Contact Radiology Diagnoses Nephrolithiasis Luis Michael Jr., MD [facility] Rad Ct Scan Procedures CT Urogram [facility] [place] [address] [place] [address] Referral ID Status Reason Start Date Expiration Date Visits V isits Requested Authorized [id number] Closed Specialty 03/14/2017 05/12/2017 1 1 Service Requested Reason for Visit Diagnostic Test (Routine) - Closed Specialty Diagnoses / Procedures Referred By Contact Refer red To Contact Radiology Diagnoses Nephrolithiasis Luis Michael Jr., MD [facility] Rad Ct Scan Procedures CT Urogram [facility] [place] [address] [place] [address] Referral ID Status Reason Start Date Expiration Date Visits V isits Requested Authorized [id number] Closed Specialty 03/14/2017 05/12/2017 1 1 Service Requested Encounter Details Date Type Department Care Team Description 03/15/[address] [place] [facility] Luis Michael Nephrolithiasis [facility] [place] [address] UROLOGY DEPT. [phone] [place], [place] [address] Social History Tobacco Use Types [...] directed NASONEX 50 mcg/actuation 0 05/18/2016 06/11/2018 [place], Non-Aerosol levonorgestrel (MIRENA) 1 each by Intrauterine route once. Lot [id number] 05/01/2016 05/01/2021 20 mcg/24 hr (5 years) [id number] IUD omeprazole (PRILOSEC) 20 PRN 0 03/22/2016 [...] contrast out of your body. Thank You, [facility] CT Scan Dept [facility] INTERVENTIONAL RADIOLOGY CT UROGRAM PROCEDURE NAME: JESSICA ALBRIGHT ADDRESS: [address] [place] [id number] HOME PHONE: [phone] (home) [phone] (work) MOBILE NUMBER: Telephone Information: REFERRING PROVIDER: [...] 07/27/16 Ida Ron APRN NASONEX 50 mcg/actuation [place], Non-Aerosol 05/18/16 PROVIDER, HISTORICAL SUMAtriptan (IMITREX) 100 mg Tablet as needed for Migraine. 04/13/16 PROVIDER, HISTORICAL levonorgestrel (MIRENA) 20 mcg/24 hr (5 years) IUD 1 each by Intrauterine route once. Lot [id number] 05/01/16 05/01/21 PROVIDER, HISTORICAL omeprazole (PRILOSEC) 20 [...] Description 07/13/2022 Appointment Radiology Maile Hinojosa MD [facility] ENDOCRINOLOGY [place], [place] [address] (Wo rk) 07/13/2022 Office Visit Endocrinology Maile Hinojosa MD [facility] [address] [place]EL [place], [place] [address] (Wo rk) documented as of [...] Routine documented in this encounter Care Teams School Cafeteria Cook Head Relationship Specialty Start Date End Date Suzie Mcintyre APRN PCP - General Family Medicine 02/28/17 06/26/17 documented as of this encounter
--- OUTSIDE RECORDS SUMMARY | 2022-04-19 15:19 | XMS_ITS | Encounter Summary ---
:1965 Author Organization [facility] Address [facility] [address] [place] [address] Care Team Providers Name Role Phone Monica Garcia MD Primary Care Provider Reason for Visit Reason Comments Follow-up Encounter Details Date Type Department Care Team Description 01/24/2015 Follow-Up Obstetrics and Ida Ron Menopausa l hot flushes Gy[place]cology [place] [facility] WAREHOUSE ASSOCIATE [facility] [place] [address] OBSTETRICS & [phone] GYNECOLOGY [place], [place] 0[address] (Wo rk) Social History Tobacco [...] Description 07/13/2022 Appointment Radiology Maile Hinojosa MD [facility] DR MARMOLEJO [place], [place] 0[address] (Wo rk) 07/13/2022 Office Visit Endocrinology Maile Hinojosa MD [facility] [place] [address] (Wo rk) documented as of this [...] Masters MD HEMATOLOGY ORDERABLES Performing Organization Address City/[facility]/ZIP [place] [address] CERNER MILLENNIUM (ABNORMAL) Hemogram [...] Masters MD HEMATOLOGY ORDERABLES Performing Organization Address City/[facility] [place] [address] CERNER MILLENNIUM TSH (01/24/2015 5:39 PM EDT) P athologist Signature TSH 2.76 0.27 - 4.20 CERNER mcIU/mL MILLENNIUM Specimen Anatomical Collection Method Collection Time Receive d Time (Source) Location / / Volume Laterality Blood specimen 01/24/2015 5:39 PM 015 5:43 (specimen) EDT PM EDT Resulting Agency Comment Spec In Lab Aylin Masters MD CHEMISTRY ORDERABLES Performing Organization Address City/State/ZIP [place] [address] KYRA ANDERSONIUM documented in this encounter Visit Diagnoses Diagnosis Menopausal hot flushes Symptomatic menopausal or female climact [place] documented in this encounter Care Teams Washtub Worker Helper Relationship Specialty Start Date End Date Monica Garcia MD PCP - General 01/06/13 02/27/17 [address] [place] [address] documented as of this encounter
--- OUTSIDE RECORDS SUMMARY | 2022-04-19 15:19 | XMS_ITS | Encounter Summary ---
:1965 Author Organization [place] [place] [address] Care Team Providers Name Role Phone Monica Garcia MD Primary Care Provider Reason for Visit Reason Comments Osteoporosis Encounter Details Date Type Department Care Team Description 04/07/2015 Office Visit Endocrinology at [facility], [place] Osteoporosis [facility] Cuate Vidales MD [facility] [place] [address] [place] [address] Social History Tobacco Use Types Packs/Day [...] 46 y.o. year old female evaluated by SNUFF CONTAINER INSPECTOR and found to have osteoporosis on Dexa [...] Hinojosa MD [facility] ENDOCRINOLOGY [place], [place] 0[address] (Wo rk) 07/13/2022 Office Visit Endocrinology Maile Hinojosa MD [facility] ENDOCRINOLOGY [place], [place] 0[address] (Wo rk) documented as of this encounter Visit Diagnoses Diagnosis Osteoporosis Osteoporosis, unspecified documented in this encounter Care Teams Sampling Theory Teacher Relationship Specialty Start Date End Date Monica Garcia MD PCP - General 01/06/13 02/27/17 [address] [place] [address] documented as of this encounter
--- OUTSIDE RECORDS SUMMARY | 2022-04-19 15:19 | XMS_ITS | Encounter Summary ---
:1965 Author Organization [facility] [place] [address] Care Team Providers Name Role Phone Monica Garcia MD Primary Care Provider Encounter Details Date Type Department Care Team Description 06/09/2014 Hospital Encounter Mammography at [facility] [place] [address] Social History Tobacco Use Types Packs/Day [...] inhaler daily as needed (winter time). Evening Morrison Oil 500 0 08/24/2010 01/24/2015 mg Cap [...] Hinojosa MD [facility] ENDOCRINOLOGY [place], [place] 0375 (Wo rk) 07/13/2022 Office Visit Endocrinology Maile Hinojosa MD [facility] ENDOCRINOLOGY [place], [place] 0[address] (Wo rk) documented as of [...] may return to routine screening. ?? and [id number] are assoc iated with this study. ?? [...] Patient may return to routine screening. and [id number] are assoc iated with this study. Ida Ron APRN IMG MAMMO ORDERABLES documented in this encounter Visit Diagnoses Not on filedocumented in this encounter Care Teams Trading Assistant Relationship Specialty Start Date End Date Monica Garcia MD PCP - General 01/06/13 02/27/17 [address] [place] [address] documented as of this encounter
--- OUTSIDE RECORDS SUMMARY | 2022-04-19 15:19 | XMS_ITS | Encounter Summary ---
:1965 Author Organization [facility] [address] Care Team Providers Name Role Phone Monica Garcia MD Primary Care Provider Encounter Details Date Type Department Care Team Description 12/30/2015 Telephone Urology at [facility] Luis Michael Jr., MD [facility] [address] UROLOGY DEPT. [phone] [place], [place] [address] (Wo rk) Social History Tobacco [...] MD [facility] ENDOCRINOLOGY [place], [place] 0[address] (Wo rk) 07/13/2022 Office Visit Endocrinology Maile Hinojosa MD [facility] ENDOCRINOLOGY [place], [place] [address] (Wo rk) documented as of this encounter Visit Diagnoses Not on filedocumented in this encounter Care Teams Electronics Assembler And Tester Relationship Specialty Start Date End Date Monica Garcia MD PCP - General 01/06/13 02/27/17 [address] [place] [address] documented as of this encounter
--- OUTSIDE RECORDS SUMMARY | 2022-04-19 15:19 | XMS_ITS | Encounter Summary ---
:1965 [place] [address] Care Team Providers Name Role Phone Monica Garcia MD Primary Care Provider Reason for Visit Reason Comments Annual Exam Encounter Details Date Type Department Care Team Description 06/09/2014 Office Visit Obstetrics and CLINIC, DR KENZIE fleming s, Gynecology at [facility] Ida Ron, SMALL PARTS ASSEMBLER [facility] OBSTETRICS & [place] [address] perimenopausal ([facility] [place]) [place] [id number] Social History Tobacco Use Types Packs/Day Years [...] in this encounter Progress Notes Ida Ron, SMALL PARTS ASSEMBLER - 06/10/2014 8:23 AM EDT Reason for visit: Annual picture enlarger exam ROS: GI: Denies any leakage of stool. : Denies any leakage of urine or urinary frequency, urgency, or burning. IT ASSOCIATE: Reported yeast infection 3 weeks ago with [...] History Procedure Date ??? Created by interface AlejandraSJosephWGuido([email or web address]) Procedure Date: 01/16/2008 ??? Lithotripsy ??? Knee surgery 03/01/14 Right knee; patella surgery IT ASSOCIATE History: Pt is a 48 year old [...] a new home in their town of [place], [place]. 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 Eats relatively healthy with fruits, vegetables, yogurt, [...] skin once a week. No refills without Undercoat Sprayer appt. 4 patch 0 ??? amitriptyline (ELAVIL) [...] mg by mouth every morning. ??? Evening [place] Oil 500 mg Cap ??? albuterol (ACCUNEB) [...] confirms, good tone, no hemorrhoids A: Unremarkable picture enlarger exam Hot flushes, worsening P: Since climara Pro does not come in a higher dose, will switch to Combipatch 0.05/0.14 semi weekly. If she is still experiencing vasomotor symptoms, will switch to higher dose. She is aware it is twice weekly. July Sulema E - 06/09/2014 4:34 PM EDT S: Annual IT ASSOCIATE Exam. ROS: GI: Denies any leakage of stool. : Denies any leakage of urine or urinary frequency, urgency, or burning. IT ASSOCIATE: Reported yeast infection 3 weeks ago with [...] Surgical History Procedure Date ??? Created by [employer] E.S.WJosephLJoseph(MSUROL) Procedure Date: 01/16/2008 ??? Lithotripsy ??? Knee [...] a new home in their town of [place], [place]. 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 Eats relatively healthy with fruits, vegetables, yogurt, [...] skin once a week. No refills without Undercoat Sprayer appt. 4 patch 0 ??? amitriptyline (ELAVIL) [...] mg by mouth every morning. ??? Evening [place] Oil 500 mg Cap ??? albuterol (ACCUNEB) [...] (138 lb) BMI 20.99 kg/m2 LMP 06/06/2014 IT ASSOCIATE History: Pt is a 48 year old [...] masses palpated. Climara Pro patch to LLQ. IT ASSOCIATE Exam: External Genitalia: Sabattus, no lesions visualized. Urethral Meatus: No masses or lesions. Vagina: Sabattus, no lesions noted however view of canal somewhat obstructed due to current bleeding from menses. Cervix: Smooth, pink, no CMT noted. Cervix visualized; no lesions noted. Uterus: Anteverted/Anteflexed, no masses palpated. Adnexa: Without masses. A: Pt is a 48 year old perimenopausal woman who does not routinely see her PCP and is here for her Annual Undercoat Sprayer Exam; exam findings benign, however patient would [...] - Pt to start decreasing dosing of [place] oil at night. - Climara patch d/c, [...] noted above. Patient seen in conjunction with [facility] HEATING MECHANIC Student, Sulema Mcdowell. documented in this encounter Plan of Treatment Upcoming Encounters Date Type Specialty Care Team Description 07/13/2022 Appointment Radiology Maile Hinojosa MD [facility] [address] [place], [place] [address] (Wo silva) 07/13/2022 Office Visit Endocrinology Maile Hinojosa MD [facility] ER DR JALEEL [place], [place] [address] (Rahul ascencio) documented as of this encounter Visit Diagnoses Diagnosis Hot flushes, perimenopausal - Primary Symptomatic menopausal or female climact [place] documented in this encounter Care Teams Dye Lab Technician Relationship Specialty Start Date End Date Monica Garcia MD PCP - General 01/06/13 02/27/17 [address] [place] [address] documented as of this encounter
--- OUTSIDE RECORDS SUMMARY | 2022-04-19 15:19 | XMS_ITS | Encounter Summary ---
:1965 Author Organization [facility] [place] [address] Care Team Providers Name Role Phone Monica Garcia MD Primary Care Provider Encounter Details Date Type Department Care Team Description 06/10/2014 Orders Only Mammography at [facility] Weston Figueroa, Inconclusive mammogram [facility] (Primary Dx) [place] [address] DIAGNOSTIC RADIOLOGY [place] [address] Social History Tobacco Use Types Packs/Day Years [...] Hinojosa MD [facility] ENDOCRINOLOGY [place], [place] [address] (Wo rk) 07/13/2022 Office Visit Endocrinology Maile Hinojosa MD [facility] ENDOCRINOLOGY [place], [place] 0[address] (Wo rk) documented as of [...] mammogram documented in this encounter Care Teams Outboard Motorboat Operator Relationship Specialty Start Date End Date Monica Garcia MD PCP - General 01/06/13 02/27/17 [address] [place] [address] documented as of this encounter
--- OUTSIDE RECORDS SUMMARY | 2022-04-19 15:19 | XMS_ITS | Encounter Summary ---
:1965 Author Organization [facility] [place] [address] Care Team Providers Name Role Phone Monica Garcia MD Primary Care Provider Reason for Visit Reason Onset Date Comments Results 10/11/2016 Encounter Details Date Type Department Care Team Description 10/11/2016 Telephone Psychiatry and Behavioral Salvador Palmer, PhD Results Health at [facility] PSYCHIATRY DEPT. [facility] [place] [address] [place] [address] [phone] (Wo rk) Social History Tobacco Use Types [...] NEUROPSYCHOLOGICAL EVALUATION Patient Name: Stacy Albright MR#: [id number] Date of Evaluation: 09/12/2016 Age: 51 years Date of : Date of Feedback: 1965 10/11/2016 Referred By: Monica Garcia M.D. Mrs. Albright participated in a 30 minute telephone feedback session to discuss the results of her [facility] neuropsychological evaluation. Briefly, the pattern of performance [...] The report is available in full on [facility]. Thank you for referring Mrs. Albright for evaluation. Please contact us at [phone] if we can be of further assistance. Christine Raza Psy.D. Salvador Pamler, Ph.D. Post-Doctoral Fellow Clinical Neuropsychologist Neuropsychology Nutrition ConsultantDirt Shovelerlevee superintendent This note was prepared by Christine Raza Psy.D., Postdoctoral Fellow in Neuropsychology, under the supervision of Salvador Palmer Ph.D. documented in this encounter Plan of Treatment Upcoming Encounters Date Type Specialty Care Team Description 07/13/2022 Appointment Radiology Maile Hinojosa MD [facility] [address] JALEEL [place], [place] [address] (Rahul ascencio) 07/13/2022 Office Visit Endocrinology Maile Hinojosa MD [facility] DR [address]ALEEL [place], [place] [address] (Wo rk) documented as of this encounter Visit Diagnoses Not on filedocumented in this encounter Care Teams Construction Foreman Relationship Specialty Start Date End Date Monica Garcia MD PCP - General 01/06/13 02/27/17 [address] [place] [address] documented as of this encounter
--- OUTSIDE RECORDS SUMMARY | 2022-04-19 15:19 | XMS_ITS | Encounter Summary ---
:1965 Author Organization [facility] Address [facility] [place] [address] Care Team Providers Name Role Phone Monica Garcia MD Primary Care Provider Encounter Details Date Type Department Care Team Description 12/13/2014 Orders Only Obstetrics and DangeloWcollin, Raissa Abel (Primary Gynecology at [facility]x) [facility] [place] [address] OBSTETRICS & [phone] GYNECOLOGY [place], [place] 0[address] Social History Tobacco Use Types [...] Appointment Radiology Maile Hinojosa MD [facility] [place] [address] [place]EL [place] [address] (Wo rk) 07/13/2022 Office Visit Endocrinology Maile Hinojosa MD [facility] [address] [place], [place] [address] (Wo rk) documented as of this encounter Visit Diagnoses Diagnosis Hot flashes - Primary Symptomatic menopausal or female climact wendy states documented in this encounter Care Teams Supervisor Assembly And Packing Relationship Specialty Start Date End Date Monica Garcia MD PCP - General 01/06/13 02/27/17 [address] [place] [address] documented as of this encounter
--- OUTSIDE RECORDS SUMMARY | 2022-04-19 15:19 | XMS_ITS | Encounter Summary ---
:1965 Author Organization [facility] Address [facility] [address] Care Team Providers Name Role Phone Monica Garcia MD Primary Care Provider Reason for Visit Reason Comments Annual Exam Encounter Details Date Type Department Care Team Description 08/02/2016 Office Visit Obstetrics and Ida Ron, Encounter for Gynecology at [facility] SEAMING MACHINE OPERATOR gynecological [facility] examinati on [address] DR abnormal finding [place], [place] OBSTETRICS & [phone] GYNECOLOGY [phone] [place], [place] [address] Social History Tobacco Use Types [...] in this encounter Progress Notes Ida Ron, SEAMING MACHINE OPERATOR - 08/02/2016 4:20 PM EST Reason for visit: Annual obstetrics gynecology md exam ROS: GINNING OPERATOR: she states she had a yeast infection [...] History Procedure Laterality Date ??? Created by [employer] [email or web address]([place] [email or web address]) Procedure Date: 01/16/2008 ??? Lithotripsy ??? Knee surgery 03/01/14 Right knee; patella surgery GINNING OPERATOR History: Pt is a 50 year old [...] a new home in their town of [place], [place]. 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 Eats relatively healthy with fruits, vegetables, yogurt, [...] 8 patch 11 ??? NASONEX 50 mcg/actuation [place], Non-Aerosol 0 ??? SUMAtriptan (IMITREX) 100 mg Tablet 1 ??? levonorgestrel (MIRENA) 20 mcg/24 hr (5 years) IUD 1 each by Intrauterine route once. Lot [id number] ??? omeprazole (PRILOSEC) 20 mg Capsule, Delayed [...] confirms, good tone, no hemorrhoids A: Unremarkable obstetrics gynecology md exam P: F/U one yr documented in this encounter Plan of Treatment Upcoming Encounters Date Type Specialty Care Team Description 07/13/2022 Appointment Radiology Maile Hinojosa MD [facility] ENDOCRINOLOGY [place], [place] [address] (Wo rk) 07/13/2022 Office Visit Endocrinology Maile Hinojosa MD [facility] ENDOCR[facility]OLOGY [place], [place] [address] (Wo rk) documented as of this encounter Visit Diagnoses Diagnosis Encounter for gynecological examination without abnormal finding Routine gynecological examination documented in this encounter Care Teams Branch Operations Manager Relationship Specialty Start Date End Date Monica Garcia MD PCP - General 01/06/13 02/27/17 [address] [place] [address] documented as of this encounter
--- OUTSIDE RECORDS SUMMARY | 2022-04-19 15:19 | XMS_ITS | Encounter Summary ---
:1965 Author Organization [place] [address] Care Team Providers Name Role Phone Monica Garcia MD Primary Care Provider Encounter Details Date Type Department Care Team Description 12/07/2014 Orders Only Obstetrics and Gynecology Sarah Jose CNM at [facility] Victor Manuel cifuentes OBSTETRICS & [place] [address] [place] [address] [phone] (Wo rk) Social History Tobacco Use Types [...] [facility] ENDOCRINOLOGY [place], [place] [address] (Wo rk) 07/13/2022 Office Visit Endocrinology Maile Hinojosa MD [facility] ENDOCRINOLOGY [place], [place] 5 (Wo rk) documented as of this encounter Visit Diagnoses Not on filedocumented in this encounter Care Teams Warehouse Unloader Relationship Specialty Start Date End Date Monica Garcia MD PCP - General 01/06/13 02/27/17 [address] [place] [address] documented as of this encounter
--- OUTSIDE RECORDS SUMMARY | 2022-04-19 15:19 | XMS_ITS | Encounter Summary ---
:1965 Author Organization [facility] [place] [address] Care Team Providers Name Role Phone Monica Garcia MD Primary Care Provider Reason for Visit Reason Onset Date Comments Questions 12/07/2014 Encounter Details Date Type Department Care Team Description 12/07/2014 Telephone Obstetrics and Gynecology at Connie Bolton, Questions [facility] [place] [address] Social History Tobacco Use Types Packs/Day [...] Description 07/13/2022 Appointment Radiology Maile Hinojosa MD [facility] ENDOCRINOLOGY [place], [place] [address] (Wo rk) 07/13/2022 Office Visit Endocrinology Maile Hinojosa MD [facility] ENDOCRINOLOGY [place], [place] [address] (Wo rk) documented as of this encounter Visit Diagnoses Not on filedocumented in this encounter Care Teams Otolaryngology Rep Relationship Specialty Start Date End Date Monica Garcia MD PCP - General 01/06/13 02/27/17 [address] [place] [address] documented as of this encounter
--- OUTSIDE RECORDS SUMMARY | 2022-04-19 15:19 | XMS_ITS | Encounter Summary ---
:1965 Author Organization [place] [place] [address] Care Team Providers Name Role Phone Monica Garcia MD Primary Care Provider Reason for Visit Reason Comments Medication Refill Encounter Details Date Type Department Care Team Description 07/27/2016 [facility] Victor Manuel cifuentes OBSTETRICS [place] [address] [place] [address] [phone] (Wo rk) Social History Tobacco Use Types [...] Maile Hinojosa MD [facility] ER DR MARMOLEJO [place], [place] [address] (Wo rk) 07/13/2022 Office Visit Endocrinology Maile Hinojosa MD [facility] ENDOCRINOLOGY [place], [place] [address] (Wo rk) documented as of this encounter Visit Diagnoses Not on filedocumented in this encounter Care Teams In School Suspension Aide Relationship Specialty Start Date End Date Monica Garcia MD PCP - General 01/06/13 02/27/17 [address] [place] [address] documented as of this encounter
--- OUTSIDE RECORDS SUMMARY | 2022-04-19 15:19 | XMS_ITS | Encounter Summary ---
:1965 Author Organization [facility] Address [address] [place] [address] Care Team Providers Name Role Phone Monica Garcia MD Primary Care Provider Encounter Details Date Type Department Care Team Description 04/07/2015 Hospital Encounter XRay at [address] [place] [address] Social History Tobacco Use Types Packs/Day [...] Description 07/13/2022 Appointment Radiology Maile Hinojosa MD [facility] ENDOCRINOLOGY [place], [place] [address] (Wo rk) 07/13/2022 Office Visit Endocrinology Maile Hinojosa MD [facility] ENDOCRINOLOGY [place], [place] [address] (Wo rk) documented as of [...] This is available through an interactive web-based iMedicarea ce (http://www.shef.ac.uk/FRAX/) and can be used to [...] sheet and do not have access to E-DH, please contact Radiology Transcrip tion at [phone] Saturday thru Saturday 8am-4pm. Narrative 04/11/2015 4:44 [...] measurements a nd plots are available in EPlatfora under the imaging tab. Paper copies will be sent to providers without E-Pazien access. If you have received this report without th e data sheet and do not have access to EPlatfora, please contact Radiology Transcrip tion at [phone] Saturday thru Saturday 8am-4pm. Cuate Hall MD IMG DEXA ORDERABLES documented in this encounter Visit Diagnoses Diagnosis Osteoporosis Osteoporosis, unspecified documented in this encounter Care Teams Assistant Analyst Relationship Specialty Start Date End Date Monica Garcia MD PCP - General 01/06/13 02/27/17 [address] [place] [address] documented as of this encounter
--- OUTSIDE RECORDS SUMMARY | 2022-04-19 15:19 | XMS_ITS | Encounter Summary ---
:1965 Author Organization [facility] [place] [address] Care Team Providers Name Role Phone Monica Garcia MD Primary Care Provider Reason for Visit Reason Onset Date Comments Medication Refill 04/23/2014 Encounter Details Date Type Department Care Team Description 04/23/2014 Refill Obstetrics and [place]cology [place] [address] Social History Tobacco Use Types Packs/Day [...] Climara patch for 1 month. Plan/Instructions: This freelance writer contacted Pt and she has scheduled her annual appt for May. documented in this encounter Plan of Treatment Upcoming Encounters Date Type Specialty Care Team Description 07/13/2022 Appointment Radiology Maile Hinojosa MD [facility] ENDOCRINOLOGY [place], [place] [address] (Wo rk) 07/13/2022 Office Visit Endocrinology Maile Hinojosa MD [facility] ER ENDOCRINOLOGY [place], [place] [address] (Wo rk) documented as of this encounter Visit Diagnoses Not on filedocumented in this encounter Care Teams Ad Operations Intern Relationship Specialty Start Date End Date Monica Garcia MD PCP - General 01/06/13 02/27/17 [address] [place] [address] documented as of this encounter
--- OUTSIDE RECORDS SUMMARY | 2022-04-19 15:19 | XMS_ITS | Encounter Summary ---
:1965 Author Organization [facility] [address] Care Team Providers Name Role Phone Monica Garcia MD Primary Care Provider Reason for Referral MRI/CAT Scan (Routine) - Closed Specialty Diagnoses / Procedures Referred By Contact Refer red To Contact Radiology Diagnoses Ultrasound for screening for growth restriction Ferdinand Michael Jr., MD [facility] Rad Ultrasound Procedures US Retroperitoneal Complete [facility] [place] [address] [place] [address] Referral ID Status Reason Start Date Expiration Date Visits Requ ested Visits Authorized [id number] Closed 05/15/2016 05/15/2017 1 1 Encounter Details Date Type Department Care Team Description 05/16/2015 Orders Only Urology at [facility] [place] Ferdinand Michael Ultrasound for [facility] MD Jules screening [facility] [place] [place] [address] [address] le (Primary [phone] UROLOGY DEPT. Dx) [place] [address] Social History Tobacco Use Types Packs/Day Years [...] Hinojosa MD [facility] [place], [place] [address] (Wo rk) 07/13/2022 Office Visit Endocrinology Maile Hinojosa MD [facility] ENDOCRINOLOGY [place], [place] [address] (Wo rk) documented as of this encounter Results US Retroperitoneal Complete (07/26/2015 [...] 03:41 pm) Patient Info ID #: ? [id number] ?: ??[birth year] (49 yrs) Name: ? JESSICA ALBRIGHT ?Visit Date: 07/26/2015 03:12 pm Performed By Performed By: ? Ranjit Escobar RDMS Attending: ?Veronica GILL, Butch Maloney Referred By: ?FERDINAND MICHAEL MD Service(s) Provided ??URETRO - Retroperitoneal Complete - I [id number] ? [address]30 Indications ??kidney stones Comparison Ultrasound: 02/23/14 ------- [...] 03:41 pm ) Patient Info ID #: [id number] : [birth year] (49 y rs) Name: JESSICA ALBRIGHT Visit Date: 07/26 03:12 pm Performed By Performed By: Maria Teresa Escobar RDMS Attending: Weston [place] MD Referred By: FERDINAND MICHAEL MD Service(s) Provided URETRO - Retroperitoneal Complete - [facility] [address]17 [address] Indications kidney stones Comparison Ultrasound: 02/23/14 ------- [...] for screening for f etal growth restriction - Primary screening for growth ret ardation using ultrasonics Ultrasound for screening for f etal growth restriction screening for growth ret ardation using ultrasonics documented in this encounter Care Teams Journeyman Plumber Relationship Specialty Start Date End Date Monica Garcia MD PCP - General 01/06/13 02/27/17 [address] [place] [address] documented as of this encounter
--- OUTSIDE RECORDS SUMMARY | 2022-04-19 15:19 | XMS_ITS | Encounter Summary ---
:1965 Author Organization [facility] [place] [address] Care Team Providers Name Role Phone Suzie Mcintyre APRN Primary Care Provider Encounter Details Date Type Department Care Team Description 03/13/2017 Hospital Encounter Ultrasound [place] [facility] Ferdinand Michael Nephrolithiasis [facility] [place] [address] UROLOGY DEPT. [phone] [place], [place] [address] Social History Tobacco Use Types [...] directed NASONEX 50 mcg/actuation 0 05/18/2016 06/11/2018 [place], Non-Aerosol levonorgestrel (MIRENA) 1 each by Intrauterine route once. Lot tu01 8ac 0 05/01/2016 05/01/2021 20 mcg/24 hr (5 years) [id number] IUD omeprazole (PRILOSEC) 20 PRN 0 03/22/2016 [...] Hinojosa MD [facility] [place], [place] [address] (Wo rk) 07/13/2022 Office Visit Endocrinology Maile Hinojosa MD [facility] [place], [place] [address] (Wo rk) documented as of this encounter [...] er.I have personally reviewed the image(s) and meghan residents interpretation andagree with the Genie mills at 03/13/2017 5:32 PM ?Genie lopez MD Electronically Signed Final Report ?? 05:40 pm Narrative 03/13/2017 5:40 PM EDT Renal ? (Signed Final 03/13/2017 05:40 pm) PATIENT INFO: ID #: ? [id number] ?: ??[birth year] (51 yrs) Name: ? JESSICA GTZ ?Visit Date: 03/13/2017 02:56 pm PERFORMED BY: Performed By: ? Keya Hedrick RDMS Attending: ?Genie Carrasco MD Resident: ? Chula GILL, Kip Rojas Referred By: ?FERDINANDAMADOR MICHAEL Location: ? [place] SERVICE(S) PROVIDED: ??URETRO - Retroperitoneal Complete - I [id number] ? [id number] INDICATIONS: ??pt with history of stones, eval [...] 05:40 pm ) PATIENT INFO: ID #: [id number] : 61 (51 y rs) Name: JESSICA GTZ Visit Date: 03/13 02:56 pm PERFORMED BY: Performed By: Chetna Hedrick RDMS Attending: Genie Carrasco MD Resident: Kip Quiros MD Referred By: FERDINAND MICHAEL JR Location: [place] SERVICE(S) PROVIDED: URETRO - Retroperitoneal Complete - [facility] [address]17 [address] INDICATIONS: pt with history of stones, eval [...] .I have personally reviewed the image(s) and e residents interpretation andagree with the Genie mills at 03/13/2017 5:32 PM Genie Carrasco MD Electronically Signed Final Report 03/13 05:40 pm Ferdinand Michael Jr., MD IMG US GEN ORDERABLES documented in this encounter Visit Diagnoses Diagnosis Nephrolithiasis Calculus of kidney documented in this encounter Care Teams Aerospace Medicine Physician Relationship Specialty Start Date End Date Suzie Mcintyre APRN PCP - General Family Medicine 02/28/17 06/26/17 documented as of this encounter
--- OUTSIDE RECORDS SUMMARY | 2022-04-19 15:19 | XMS_ITS | Encounter Summary ---
:1965 Author Organization [facility] Address [facility] [address] [place] [address] Care Team Providers Name Role Phone Monica Garcia MD Primary Care Provider Reason for Visit Reason Comments Follow-up EMB Encounter Details Date Type Department Care Team Description 08/29/2015 Office Visit Obstetrics and Ida Ron, Abnormal uterine Gynecology at [facility] [place] ELECTRONIC ENGRAVER bleeding (AUB) [address] [facility] [address] [place], [place] OBSTETRICS & [address] GYNECOLOGY [phone] [place], [place] [address] Social History Tobacco Use Types [...] EST documented in this encounter Progress Notes AsafIda APRN - 08/29/2015 7:46 AM EST Reason for visit: AUB HPI: I saw pt 06/28/15. 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 She has agreed to an EMB. Risks [...] 07/13/2022 Appointment Radiology Maile Hinojosa MD [facility] [address] [place], [place] [address] (Wo rk) 07/13/2022 Office Visit Endocrinology Maile Hinojosa MD [facility] [address] [place], [place] [address] (Wo rk) documented as of [...] Component Value Ref Test Analysis Performed At [facility] Range Method Time Signature Surgical [id number] ? Location: [address] [place] [address] Pathology [facility] Report The signing pathologist has (i) [...] Organization Address City/State/[place] [address] [facility] Specimen to Pathology (NON-OR) (08/29/2015 8:20 AM EST) Specimen Anatomical Collection Method Collection Time Receive d Time (Source) Location / / Volume Laterality AP Specimen 08/29/2015 8:20 AM 6 8:20 EST AM EST Narrative CERNER MILLENNIUM - 08/29/2015 8:[address] Specimen requisition ordered. ??Separate Pathology report to follow Taryn Banks MD PATHOLOGY/CYTOLOGY ORDERABLE S Performing Organization Address City/[facility]/[place] [address] [facility] documented in this encounter Visit Diagnoses Diagnosis Abnormal uterine bleeding (AUB) documented in this encounter Care Teams Technical Solutions Consultant Relationship Specialty Start Date End Date Monica Garcia MD PCP - General 01/06/13 02/27/17 [address] [place] [address] documented as of this encounter
--- OUTSIDE RECORDS SUMMARY | 2022-04-19 15:19 | XMS_ITS | Encounter Summary ---
:1965 Author Organization [place] [address] Care Team Providers Name Role Phone Janet Davey APRN Primary Care Provider Reason for Visit Reason Comments Medication Refill Encounter Details Date Type Department Care Team Description 08/06/2015 Refill Obstetrics and Gynecology at BannerIda APRN [facility] Victor Manuel cifuentes OBSTETRICS [place] [address] [place] [address] [phone] (Wo rk) Social History Tobacco Use Types [...] Description 07/13/2022 Appointment Radiology Maile Hinojosa MD [facility] DR [place]MO[place], [place] [address] (Wo rk) 07/13/2022 Office Visit Endocrinology Maile Hinojosa MD [facility] DR [place], [place] [address] (Wo rk) documented as of this encounter Visit Diagnoses Not on filedocumented in this encounter Care Teams Retail Advertising Account Executive Relationship Specialty Start Date End Date Janet Davey APRN PCP - General Family Medicine 07/13/20 [address] [place] [address] documented as of this encounter
--- OUTSIDE RECORDS SUMMARY | 2022-04-19 15:19 | XMS_ITS | Encounter Summary ---
:1965 Author Organization [facility] [place] [address] Care Team Providers Name Role Phone EdJanet mendez Isa GONCALVES Primary Care Provider Reason for Visit Reason Comments Medication Refill Encounter Details Date Type Department Care Team Description 04/11/2014 Refill Obstetrics and Gynecology at Ramses Boyce MD [facility] Victor Manuel cifuentes OBSTETRICS & [place] [address] [place] [address] [phone] Social History Tobacco Use Types Packs/Day Years [...] Description 07/13/2022 Appointment Radiology Maile Hinojosa MD [facility] ER ENDOCRINOLOGY [place], [place] [address] (Wo rk) 07/13/2022 Office Visit Endocrinology Maile Hinojosa MD [facility] ENDOCRINOLOGY [place], [place] [address] (Wo rk) documented as of this encounter Visit Diagnoses Not on filedocumented in this encounter Care Teams Consumer Loan Processor Relationship Specialty Start Date End Date Janet Davey APRN PCP - General Family Medicine 07/13/20 [address] [place] [address] documented as of this encounter
--- OUTSIDE RECORDS SUMMARY | 2022-04-19 15:19 | XMS_ITS | Encounter Summary ---
:1965 Author Organization [facility] [place] [address] Care Team Providers Name Role Phone Monica Garcia MD Primary Care Provider Reason for Visit Reason Onset Date Comments Medication Refill 04/23/2014 Encounter Details Date Type Department Care Team Description 04/23/2014 Refill Obstetrics and Gynecology [place] [address] Social History Tobacco Use Types Packs/Day [...] Description 07/13/2022 Appointment Radiology Maile Hinojosa MD [facility] ER DR MARMOLEJO [place], [place] [address] (Wo rk) 07/13/2022 Office Visit Endocrinology Maile Hinojosa MD [facility] ER ENDOCRINOLOGY [place], [place] [address] (Wo rk) documented as of this encounter Visit Diagnoses Not on filedocumented in this encounter Care Teams Licensing Officer Relationship Specialty Start Date End Date Monica Garcia MD PCP - General 01/06/13 02/27/17 [address] [place] [address] documented as of this encounter
--- OUTSIDE RECORDS SUMMARY | 2022-04-19 15:19 | XMS_ITS | Encounter Summary ---
:1965 Author Organization [facility] [address] Care Team Providers Name Role Phone Monica Garcia MD Primary Care Provider Encounter Details Date Type Department Care Team Description 06/28/2015 Hospital En[place] [facility] NicolásKimberli sheriffan Other screening [facility] MD Ken mammogram [facility] [address] OBSTETRICS & [phone] [place] [address] Social History Tobacco Use Types Packs/Day Years [...] Description 07/13/2022 Appointment Radiology Maile Hinojosa MD [facility] ER ENDOCRINOLOGY [place], [place] [address] (Wo rk) 07/13/2022 Office Visit Endocrinology Maile Hinojosa MD [facility] ER ENDOCRINOLOGY [place], [place] [address] (Wo rk) documented as of this [...] letter has been sent to this pa tiedarci by [facility]. BIRADS CATEGORY 1: NEGATIVE Rosey Crabtree MD IMG MAMMO ORDERABLES documented in this encounter Visit Diagnoses Diagnosis Other screening mammogram documented in this encounter Care Teams Miner Assistant Relationship Specialty Start Date End Date Monica Garcia MD PCP - General 01/06/13 02/27/17 [address] [place] [address] documented as of this encounter
--- OUTSIDE RECORDS SUMMARY | 2022-04-19 15:19 | XMS_ITS | Encounter Summary ---
:1965 Author Organization [facility] [place] [address] Care Team Providers Name Role Phone Monica Garcia MD Primary Care Provider Encounter Details Date Type Department Care Team Description 07/14/2014 Orders Only Obstetrics and Gynecology Ida Ron APRN at [facility] [place] Victor Manuel cifuentes OBSTETRICS & [place] [address] [place] [address] [phone] (Wo rk) Social History Tobacco Use Types [...] Description 07/13/2022 Appointment Radiology Maile Hinojosa MD [facility] ER ENDOCRINOLOGY [place], [place] [address] (Wo rk) 07/13/2022 Office Visit Endocrinology Maile Hinojosa MD [facility] ER ENDOCRINOLOGY [place], [place] [address] (Wo rk) documented as of this encounter Visit Diagnoses Not on filedocumented in this encounter Care Teams Metal Washing Machine Operator Relationship Specialty Start Date End Date Monica Garcia MD PCP - General 01/06/13 02/27/17 [address] [place] [address] documented as of this encounter
--- OUTSIDE RECORDS SUMMARY | 2022-04-19 15:19 | XMS_ITS | Encounter Summary ---
:1965 Author Organization [facility] [place] [address] Care Team Providers Name Role Phone Monica Garcia MD Primary Care Provider Reason for Visit Reason Onset Date Comments Medication Refill 07/06/2015 Encounter Details Date Type Department Care Team Description 07/06/2015 Refill Obstetrics and Gynecology at [facility] Ida juan APRN [facility] Victor Manuel cifuentes OBSTETRICS & [place] [address] [place] [address] [phone] (Wo rk) Social History Tobacco Use Types [...] Radiology Maile Hinojosa MD [facility] ENDOCRINOLOGY [place], [place] [address] (Wo rk) 07/13/2022 Office Visit Endocrinology Maile Hinojosa MD [facility] ER ENDOCRINOLOGY [place], [place] [address] (Wo rk) documented as of this encounter Visit Diagnoses Not on filedocumented in this encounter Care Teams Technical Sales Advisor Relationship Specialty Start Date End Date Monica Garcia MD PCP - General 01/06/13 02/27/17 [address] [place] [address] documented as of this encounter
--- OUTSIDE RECORDS SUMMARY | 2022-04-19 15:19 | XMS_ITS | Encounter Summary ---
:1965 Author Organization [facility] [place] [address] Care Team Providers Name Role Phone Monica Garcia MD Primary Care Provider Encounter Details Date Type Department Care Team Description 07/07/2015 Orders Only Obstetrics and Gynecology Ida Ron APRN at [facility] Victor Manuel cifuentes OBSTETRICS & [place] [address] [place] [address] [phone] (Wo rk) Social History Tobacco Use Types [...] Maile Hinojosa MD [facility] ER ENDOCRINOLOGY [place], [place] [address] (Wo rk) 07/13/2022 Office Visit Endocrinology Maile Hinojosa MD [facility] ER ENDOCRINOLOGY [place], [place] [address] (Wo rk) documented as of this encounter Visit Diagnoses Not on filedocumented in this encounter Care Teams Head Of It Relationship Specialty Start Date End Date Monica Garcia MD PCP - General 01/06/13 02/27/17 [address] [place] [address] documented as of this encounter
--- OUTSIDE RECORDS SUMMARY | 2022-04-19 15:19 | XMS_ITS | Encounter Summary ---
:1965 Author Organization [facility] [place] [address] Care Team Providers Name Role Phone Monica Garcia MD Primary Care Provider Reason for Visit Reason Comments Nephrolithiasis Encounter Details Date Type Department Care Team Description 02/23/2014 Follow-Up Urology at [facility] [place] ESPINO History of urinary [facility] Luis Michael Jr., MD [facility] [place] [address] stone (Primary Dx) [place] [address] Social History Tobacco Use Types Packs/Day [...] Description 07/13/2022 Appointment Radiology Maile Hinojosa MD [facility] ENDOCRINOLOGY [place], [place] [address] (Wo rk) 07/13/2022 Office Visit Endocrinology Maile Hinojosa MD [facility] ENDOCRINOLOGY [place], [place] [address] (Wo rk) documented as of this encounter Visit Diagnoses Diagnosis History of urinary stone - Primary Personal history of urinary calculi documented in this encounter Care Teams Make Up Artist Relationship Specialty Start Date End Date Monica Garcia MD PCP - General 01/06/13 02/27/[address] [place] [address] documented as of this encounter
--- OUTSIDE RECORDS SUMMARY | 2022-04-19 15:19 | XMS_ITS | Encounter Summary ---
:1965 Author Organization [facility] [place] [address] Care Team Providers Name Role Phone Suzie Mcintyre APRN Primary Care Provider Reason for Referral Diagnostic Test (Routine) - Closed Specialty Diagnoses / Procedures Referred By Contact Refer red To Contact Radiology Diagnoses Nephrolithiasis Ferdinand Michael Jr., MD [facility] Rad Ct Scan Procedures CT Urogram [facility] [place] [address] [place] [address] Referral ID Status Reason Start Date Expiration Date Visits V isits Requested Authorized [id number] Closed Specialty 03/14/2017 05/12/2017 1 1 Service Requested Reason for Visit Reason Comments Flank Pain Encounter Details Date Type Department Care Team Description 03/13/2017 Office Visit Urology at [facility] Ferdinand Michael Jr., Nephrolithiasis [facility] Victor [place] [address] [facility] [phone] UROLOGY DEPT. [place], [place] [address] (Wo rk) Social History Tobacco [...] Description 07/13/2022 Appointment Radiology Maile Hinojosa MD [facility] ENDOCRINOLOGY [place], [place] [address] (Wo rk) 07/13/2022 Office Visit Endocrinology Maile Hinojosa MD [facility] DR [place]EL [place], [place] [address] (Wo rk) documented as of [...] Signature Glucose Lvl 93 65 - 199 [facility] mg/dL [facility] Comment: Diabetes: >=200 mg/dL plus symp toms BUN 15 8 - 18 mg/dL [facility] Creatinine 0.82 0.70 - 1.20 mg/dL [facility] Comment: Please note that the pediatric reference intervals supplied above were not validated at [facility]. Results from pediatri c patients should be interpreted in conjunction to the patient's age, height and muscle mass. Sodium 137 135 - 145 mmol/L [facility] Potassium 4.1 3.5 - 5.0 mmol/L [facility] Comment: Please note: ??Patients with WBC >100,00 0 may have falsely elevated Potassium levels. ??For accurate Potassium quantif ication in these patients send serum separator tube (gold top) for subsequent determinations. ??Contact the Clinical Chemistry Laboratory if there are any qu estions. Chloride 101 98 - 107 mmol/L [facility] CO2 24 22 - 31 mmol/L [facility] Anion Gap 12 5 - 15 mmol/L [facility] Calcium 9.3 8.5 - 10.5 mg/dL [facility] Estimated GFR >60 >=60 [facility] Comment: This estimated GFR (eGFR) [...] the following links into your internet browser. [email or web address] Specimen Anatomical Collection Method Collection Time Receive d Time (Source) Location / / Volume Laterality Blood specimen 03/15/2017 2:36 PM 017 2:47 (specimen) EDT PM EDT Resulting Agency Comment Spec In Lab Ferdinand Michael Jr., MD CHEMISTRY ORDERABLES Performing Organization Address City/[facility] [place] [address] (ABNORMAL) Urine culture Clean Catch Urine (03/13/2017 5:50 PM EDT) [facility] Method Time Signature Urine Culture 1,000-9,000 ALBERT cfu/ml [facility] probable LABORATORY contaminant (A) Specimen (Source) Anatomical Collection Method Collection Time Re ceived Time Location / / Volume Laterality Urine specimen 03/13/2017 5:50 03/13/2017 5:50 obtained by clean PM EDT PM EDT catch procedure (specimen) Resulting Agency Comment Spec In Lab Ferdinand Michael Jr., MD MICROBIOLOGY - GENERAL ORDER MERLE Performing Organization Address City/[facility] [place] [address] (ABNORMAL) Urinalysis with reflex Culture (03/13/2017 4:52 PM EDT) timeplazza Method Time Signature Glucose UA Negative Negative [place] mg/dL [facility] Protein UA Negative Negative [facility] [place] mg/dL [facility] Bilirubin UA Negative Negative [facility] [place] mg/dL [facility] Comment: Clinical correlation required for positi ve Urine Bilirubin results as false positive may occur with some drugs and d rug related products. If a false positive is suspected a serum total bili lloyd should be considered if clinically indicated. Urobilinogen UA Normal Normal mg/dL [facility] pH UA 6.0 5.0 - 8.0 [facility] Blood UA Small (A) Negative mg/dL [facility] Ketones UA Negative Negative mg/dL [facility] Nitrite UA Negative Negative [facility] Leukocytes UA Negative Negative [facility]OR[facility]ORY Appearance UA Hazy (A) Clear [facility] Spec [place] UA 1.014 1.002 - 1.030 [facility] Color UA Yellow Yellow [facility] RBC UA <1 0 - 4 /HPF [facility] WBC UA 2 0 - 5 /HPF [facility] Bacteria UA Rare (A) None /HPF [facility] Squam Epith UA 1 <=4 /HPF [facility] Hyaline Cast UA 1 0 - 2 /LPF [facility] Culture Reflexed No [facility] Specimen (Source) Anatomical Collection Method Collection Time Re ceived Time Location / / Volume Laterality Urine specimen 03/13/2017 4:52 03/13/2017 5:34 obtained by clean PM EDT PM EDT catch procedure (specimen) Resulting Agency Comment Spec In Lab Ferdinand Michael Jr., MD URINE ORDERABLES Performing Organization Address City/State/[place] [address] documented in this encounter Visit Diagnoses Diagnosis Nephrolithiasis Calculus of kidney Nephrolithiasis Calculus of kidney documented in this encounter Care Teams Washer Assembler Relationship Specialty Start Date End Date Suzie Mcintyre APRN PCP - General Family Medicine 02/28/17 06/26/17 documented as of this encounter
--- OUTSIDE RECORDS SUMMARY | 2022-04-19 15:19 | XMS_ITS | Encounter Summary ---
:1965 Author Organization [facility] [place] [address] Care Team Providers Name Role Phone Monica Garcia MD Primary Care Provider Encounter Details Date Type Department Care Team Description 08/22/2015 Telephone Obstetrics and Gynecology at [facility] Ida juan APRN [facility] Victor Manuel cifuentes OBSTETRICS & [place] [address] [place] [address] [phone] (Wo rk) Social History Tobacco Use Types [...] Hinojosa MD [facility] ENDOCRINOLOGY [place], [place] [address] (Wo rk) 07/13/2022 Office Visit Endocrinology Maile Hinojosa MD [facility] ENDOCRINOLOGY [place], [place] 0[address] (Wo rk) documented as of this encounter Visit Diagnoses Not on filedocumented in this encounter Care Teams Clinical Specialist Relationship Specialty Start Date End Date Monica Garcia MD PCP - General 01/06/13 02/27/17 [address] [place] [address] documented as of this encounter
--- OUTSIDE RECORDS SUMMARY | 2022-04-19 15:19 | XMS_ITS | Encounter Summary ---
:1965 Author Organization [facility] [place] [address] Care Team Providers Name Role Phone Monica Garcia MD Primary Care Provider Reason for Visit Reason Comments Follow-up Encounter Details Date Type Department Care Team Description 07/26/2015 Office Visit Urology at [facility] Luis Michael Jr., Nephrolithiasis [facility] [place] [address] [facility] [phone] UROLOGY DEPT. [place], [place] [address] (Wo rk) Social History Tobacco [...] Hinojosa MD [facility] ENDO[facility] [place], [place] 0[address] (Wo rk) 07/13/2022 Office Visit Endocrinology Maile Hinojosa MD [facility] ENDOCRINOLOGY [place], [place] 0[address] (Wo rk) documented as of this encounter Visit Diagnoses Diagnosis Nephrolithiasis Calculus of kidney documented in this encounter Care Teams Edge Setter Relationship Specialty Start Date End Date Monica Garcia MD PCP - General 01/06/13 02/27/17 [address] [place] [address] documented as of this encounter
--- OUTSIDE RECORDS SUMMARY | 2022-04-19 15:19 | XMS_ITS | Encounter Summary ---
:1965 Author Organization [facility] [address] Care Team Providers Name Role Phone Monica Garcia MD Primary Care Provider Reason for Visit Reason Comments Contraception Encounter Details Date Type Department Care Team Description 05/01/2016 Office Visit Obstetrics and Ida Ron, Encounter for IUD insertion; Gynecology at [facility] RADAR ENGINEER Unsatisfactory cervical Papanicolaou sme ar; [facility] Vulvar pa in [facility] [address] [place] OBSTETRICS & [phone] GYNECOLOGY [phone] [place], [place] [address] Social History Tobacco Use Types [...] FOR VISIT: IUD Placement, Pap, vulvar dryness Biomass Power Plant Manager: pt reports starting after her period stopped [...] Hinojosa MD [facility] END[facility] [place], [place] [address] (Wo rk) 07/13/2022 Office Visit Endocrinology Maile Hinojosa MD [facility] ER DR MARMOLEJO [place], [place] [address] (Wo rk) documented as of this encounter Procedures Procedure Name Priority Date/Time Associated Comments Diagnosis HPV Routine 05/01/2016 5:32 PM Results f or this EDT procedure are i n the results section. RETOUCHING OPERATOR CYTOLOGY Routine 05/01/2016 5:32 PM Results f or this INTERPRETATION EDT procedure are in the results section. RETOUCHING OPERATOR CYTOLOGY FINAL Routine 05/01/2016 5:32 PM Res ults for this REPORT EDT procedure are i n the results section. CYTOPATHOLOGY Routine 05/01/2016 5:32 PM Encounter for IUD Res ults for this GYNECOLOGICAL EDT insertion procedure are in the results section. documented in this encounter Results RETOUCHING OPERATOR Cytology Interpretation (05/01/2016 5:32 PM EDT) [facility] Method Time Signature Biomass Power Plant Manager Cytology NILM [facility] Comment: Biomass Power Plant Manager Cytology Final Report Acces kendall: [id number] Endocerv[address] Component Present [facility] Specimen Anatomical Collection Method Collection Time Receive d Time (Source) Location / / Volume Laterality AP Specimen 05/01/2016 5:32 PM 6 8:09 EDT AM EDT Ida Ron APRN PATHOLOGY/CYTOLOGY ORDERABLE S Performing Organization Address City/State/[place] [address] Biomass Power Plant Manager Cytology Final Report (05/01/2016 5:32 PM EDT) Component Value Ref Test Analysis Performed At [facility] Range Method Time Signature Biomass Power Plant Manager Cytology [id number] ? Location: 5L [facility] Final Report [place] The signing pathologist has (i) examined the relevant preparation(s) for the [facility] specimen(s) and (ii) rendered or confirmed the diagnosis(es) . HOSPITAL LABOR[facility]ORY . ? Biomass Power Plant Manager Final DIAGNOSIS Normal Negative for Intraepithelial Lesion or Malignancy (NILM). For consensus guidelines for the management of c ervical cancer screening test results, please see: ?? http://www.asccp.org/guidelines . Electronically signed by: ??AVI Henson(ASCP), Suzie Ruiz Verified: ??05/04/2016 ?Cotton Presser Screened: ??05/04/2016 ?SLA HPV RESULTS HPV16 (Result) [...] Gen omics and Advanced Technology (CGAT) at [facility]. ? - David Avilez, PhD, [facility], Director[facility] STATEMENT OF ADEQUACY Specimen submitted is satisfactory. Endocervical component p resent. CLINICAL INFORMATION HPV Option: ?Concurrent HPV and Pap Preparation: ? Liquid based Pap Specimen Source: ? Cervical/Endocervical LMP: ? 8/19/16 Hormones?: ? Yes Hysterectomy?: ? No ?: ? No ?: ? No I.U.D.?: ? No Pelvic Radiation: ?No Prior RETOUCHING OPERATOR Therapy?: ?Cautery Hist Abnl Pap/Biopsy?: ?? Yes, [...] evalu ated with the assistance of the frentsp Pap Test Imaging System. Note: The Pap test is a screening test for cervical cancer with an inherent false-negative rate dependent upon several variables. ??For further information please contact the [facility] Laboratory. Reference: ??Absander CS. ? ?Extrusion Line Operator of Pap Smear Results. ??In: ??Sukumar BS, Roni HH, ed. ??The Pap Smear. ??[place]: ??Jonah, 20 02: ??71-77. Specimen (Source) Anatomical Collection Method Collection Time Re ceived Time Location / / Volume Laterality 05/01/2016 5:32 PM EDT Ida Ron APRN PATHOLOGY/CYTOLOGY ORDERABLE S Performing Organization Address City/State/ZIP Code [place] [address] HPV (05/01/2016 5:32 PM EDT) Patholo gist Method Time Signature HPV 16 NEGATIVE NEGATIVE [facility] HPV 18 NEGATIVE NEGATIVE [facility] HPV Other HR NEGATIVE NEGATIVE [facility] HPV See Comment ALBERT Jones [facility] Comment: NEGATIVE for high-risk HPV *. [...] Comment Spec In Lab Ida Ron APRN PATHOLOGY/CYTOLOGY ORDERABLE S Performing Organization Address City/[facility]/[place]IP [place] [address] Cytopathology Gynecological (05/01/2016 5:32 PM EDT) Specimen Anatomical Collection Method Collection Time Receive d Time (Source) Location / / Volume Laterality AP Specimen 05/01/2016 5:32 PM 6 5:37 EDT PM EDT Narrative [facility] - 05/01/2016 5:37 PM EDT Specimen requisition ordered. ??Separate Pathology report to follow Resulting Agency Comment Spec In Lab Taryn Banks MD PATHOLOGY/CYTOLOGY ORDERABLE S Performing Organization Address City/State/[place] [address] documented in this encounter [...] Routine documented in this encounter Care Teams Transport Operations Inspector Relationship Specialty Start Date End Date Monica Garcia MD PCP - General 01/06/13 02/27/17 [address] [place] [address] documented as of this encounter
--- OUTSIDE RECORDS SUMMARY | 2022-04-19 15:19 | XMS_ITS | Encounter Summary ---
:1965 Author Organization [facility] [place] [address] Care Team Providers Name Role Phone Monica Garcia MD Primary Care Provider Reason for Visit Reason Onset Date Comments Medication Refill 07/07/2015 Encounter Details Date Type Department Care Team Description 07/07/2015 Telephone Obstetrics and Gynecology Sandra Bolton Medication Refill at [facility] W, [place] [address] Social History Tobacco Use Types Packs/Day [...] a week. Prescription called in to the [facility] in [facility]. Patient called and notified of prescription. Telephone Encounter - Connie Bolton RN - 07/07/2015 4:29 PM EST Caller: [...] Description 07/13/2022 Appointment Radiology Maile Hinojosa MD [facility] ENDOCRINOLOGY [place], [place] [address] (Wo rk) 07/13/2022 Office Visit Endocrinology Maile Hinojosa MD [facility] ENDOCRINOLOGY [place], [place] [address] (Wo rk) documented as of this encounter Visit Diagnoses Not on filedocumented in this encounter Care Teams Apprenticeship Representative Relationship Specialty Start Date End Date Monica Garcia MD PCP - General 01/06/13 02/27/17 [address] [place] [address] documented as of this encounter
--- OUTSIDE RECORDS SUMMARY | 2022-04-19 15:19 | XMS_ITS | Encounter Summary ---
:1965 Author Organization [place] [address] Care Team Providers Name Role Phone Monica Garcia MD Primary Care Provider Encounter Details Date Type Department Care Team Description 06/18/2014 Hospital Encounter Mammography at [facility] [place] [address] Social History Tobacco Use Types Packs/Day [...] inhaler daily as needed (winter time). Evening [employer] 500 0 08/24/2010 01/24/2015 mg Cap [...] Hinojosa MD [facility] ENDOCR[facility] [place], [place] [address] (Wo rk) 07/13/2022 Office Visit Endocrinology Maile Hinojosa MD [facility] ENDOCRINOLOGY [place], [place] [address] (Wo rk) documented as of [...] screening. is associated with is study. Ida Ron APRN IMG MAMMO ORDERABLES documented in this encounter Visit Diagnoses Not on filedocumented in this encounter Care Teams Visual Designer Relationship Specialty Start Date End Date Monica Garcia MD PCP - General 01/06/13 02/27/17 [address] [place] [address] documented as of this encounter
--- OUTSIDE RECORDS SUMMARY | 2022-04-19 15:19 | XMS_ITS | Encounter Summary ---
:1965 Author Organization [facility] [place] [address] Care Team Providers Name Role Phone Suzie Mcintyre APRN Primary Care Provider Encounter Details Date Type Department Care Team Description 03/13/2017 Orders Only Urology at [place] Luis Michael Jr., MD [facility] [place] [address] UROLOGY DEPT. [phone] [place], [place] [address] (Wo rk) Social History Tobacco [...] Description 07/13/2022 Appointment Radiology Maile Hinojosa MD [facility] ER DR JALEEL [place] [address] (Wo rk) 07/13/2022 Office Visit Endocrinology Maile Hinojosa MD [facility] [address] [place], [place] [address] (Wo rk) documented as of this encounter Visit Diagnoses Not on filedocumented in this encounter Care Teams Automotive Software Engineer Relationship Specialty Start Date End Date Suzie Mcintyre APRN PCP - General Family Medicine 02/28/17 06/26/17 documented as of this encounter
--- OUTSIDE RECORDS SUMMARY | 2022-04-19 15:19 | XMS_ITS | Encounter Summary ---
:1965 Author Organization [facility] [place] [address] Care Team Providers Name Role Phone Suzie Mcintyre APRN Primary Care Provider Encounter Details Date Type Department Care Team Description 03/13/2017 Hospital Encounter X[facility] at [facility] Nephrolithiasis [address] [place] [address] [place] [address] Social History Tobacco Use Types Packs/Day [...] directed NASONEX 50 mcg/actuation 0 05/18/2016 06/11/2018 [place], Non-Aerosol levonorgestrel (MIRENA) 1 each by Intrauterine route once. Lot tu01 8ac 0 05/01/2016 05/01/2021 20 mcg/24 hr (5 years) [id number] IUD omeprazole (PRILOSEC) 20 PRN 0 03/22/2016 [...] Hinojosa MD [facility] ENDOCR[facility]OLOG[facility] [place], [place] [address] (Wo rk) 07/13/2022 Office Visit Endocrinology Maile Hinojosa MD [facility] ENDO[facility] [place], [place] [address] (Wo rk) documented as of this encounter [...] kidney documented in this encounter Care Teams Brimming Machine Operator Relationship Specialty Start Date End Date Suzie Mcintyre APRN PCP - General Family Medicine 02/28/17 06/26/17 documented as of this encounter
--- OUTSIDE RECORDS SUMMARY | 2022-04-19 15:19 | XMS_ITS | Encounter Summary ---
:1965 Author Organization [facility] Address [facility] [place] [address] Care Team Providers Name Role Phone Monica Garcia MD Primary Care Provider Encounter Details Date Type Department Care Team Description 07/15/2014 Orders Only Obstetrics and Gynecology Ida Ron, PSYCHOLOGY PHYSICIAN Perimenopause at [facility] Victor Manuel cifuentes OBSTETRICS & [place] [address] GYNECOLOGY [phone] [place], [place] [address] (Wo rk) Social History Tobacco [...] Description 07/13/2022 Appointment Radiology Maile Hinojosa MD [facility] ENDOCRINOLOGY [place], [place] [address] (Wo rk) 07/13/2022 Office Visit Endocrinology Maile Hinojosa MD [facility] ENDOCRINOLOGY [place], [place] [address] (Wo rk) documented as of this encounter Visit Diagnoses Diagnosis Perimenopause Symptomatic menopausal or female climact [place] documented in this encounter Care Teams Inspector Insulation Relationship Specialty Start Date End Date Monica Garcia MD PCP - General 01/06/13 02/27/17 [address] [place] [address] documented as of this encounter
--- OUTSIDE RECORDS SUMMARY | 2022-04-19 15:19 | XMS_ITS | Encounter Summary ---
:1965 Author Organization [facility] [place] [address] Care Team Providers Name Role Phone Monica Garcia MD Primary Care Provider Encounter Details Date Type Department Care Team Description 01/19/2015 Notes Only Obstetrics and Gynecology [place] [address] Social History Tobacco Use Types Packs/Day [...] Hinojosa MD [facility] ENDOCRINOLOGY [place], [place] [address] (Wo rk) 07/13/2022 Office Visit Endocrinology Maile Hinojosa MD [facility] ENDOCRINOLOGY [place], [place] [address] (Wo rk) documented as of this encounter Visit Diagnoses Not on filedocumented in this encounter Care Teams Loan Workout Officer Relationship Specialty Start Date End Date Monica Garcia MD PCP - General 01/06/13 02/27/17 [address] [place] [address] documented as of this encounter
--- OUTSIDE RECORDS SUMMARY | 2022-04-19 15:19 | XMS_ITS | Encounter Summary ---
:1965 Author Organization [place] [address] Care Team Providers Name Role Phone Monica Garcia MD Primary Care Provider Reason for Visit Reason Comments Annual Exam Encounter Details Date Type Department Care Team Description 06/28/2015 Office Visit Obstetrics and Ida Ron, Encounter for routine gynecological examination; Gynecology at [facility] WEB PRESS OPERATOR ASSISTANT Perimenopause [facility] [address] [place]RICS & [address] GYNECOLOGY [phone] [place], [place] [address] Social History Tobacco Use Types [...] in this encounter Progress Notes Ida Ron, WEB PRESS OPERATOR ASSISTANT - 06/28/2015 4:34 PM EST Reason for visit: Annual urogynaecologist exam ROS: RELIGION DEPARTMENT CHAIR: She is currently using the Estradiol 0.1 [...] Laterality Date ??? Created by leigh ann Morgan([email or web address]) Procedure Date: 01/16/2008 ??? Lithotripsy ??? Knee surgery 03/01/14 Right knee; patella surgery RELIGION DEPARTMENT CHAIR History: Pt is a 49 year old [...] a new home in their town of [place], [place]. 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 Eats relatively healthy with fruits, vegetables, yogurt, [...] Appointment Radiology Maile Hinojosa MD [facility] ENDOCRINOLOGY [place], [place] [address] (Wo rk) 07/13/2022 Office Visit Endocrinology Maile Hinojosa MD [facility] ENDOCRINOLOGY [place], [place] [address] (Wo rk) documented as of this encounter Procedures Procedure Name Priority Date/Time Associated Diagnosis Comme nts RELIGION DEPARTMENT CHAIR CYTOLOGY Routine 06/28/2015 5:02 Results for this INTERPRETATION PM EST procedure are in the results section. RELIGION DEPARTMENT CHAIR CYTOLOGY FINAL Routine 06/28/2015 5:02 Result s for this REPORT PM EST procedure are i n the results section. CYTOPATHOLOGY Routine 06/28/2015 5:02 Encounter for routine Re sults for this GYNECOLOGICAL PM EST gynecological procedure are in examination the results section. documented in this encounter Results RELIGION DEPARTMENT CHAIR Cytology Interpretation (06/28/2015 5:02 PM EST) Component Value Ref Test Analysis Performed At [facility] Range Method Time Signature [facility] Cytology Unsatisfactory CERNER Interpretation [facility] Comment: [facility] Cytology Final Report Acces kendall: [id number] [facility] Cytology Comment Present [facility] Endocervical Component Unsatisfactory CE RNER [facility] Specimen Anatomical Collection Method Collection Time Receive d Time (Source) Location / / Volume Laterality AP Specimen 06/28/2015 5:02 PM 5 5:32 EST PM EST Rosey Crabtree MD PATHOLOGY/CYTOLOGY ORDERABLE S Performing Organization Address City/State/[place] [address] CERNER [facility] Second [facility] Cytology Final Report (06/28/2015 5:02 PM EST) Component Value Ref Test Analysis Performed At [facility] Method Time Signature [facility] Cytology The signing pathologist has (i) examined the relevant preparation(s) for the [facility] Final Report specimen(s) and (ii) rendered or confirmed the diagnosis (es). [facility] Accession Number: [id number] ?Location: 5 L . ? Second [facility] Final DIAGNOSIS Unsatisfactory Specimen submitted is unsatisfactory for evaluation. ??See verna dewitt. 07/05/15 ?? Screened by: ??LMY ??SLA 07/05/15 ?? Verified by: ??A AVI stone(ASCP), Suzie Braswell - Electronics Hardware Design Engineer DISCUSSION Specimen processed and exami bhumika microscopically but unsatisfactory for evaluation of epithelial abnormality due to insufficient squamous cellularity. ??Blood present. STATEMENT OF ADEQUACY Specimen submitted is unsatisfactory due to insufficie nt squamous component. CLINICAL INFORMATION HPV Option: ?Reflex HPV Preparation: ? Liquid based Pap Specimen Source: ? Cervical/Endocervical LMP: ? 06/27/15 Hormones?: ? Yes Hysterectomy?: ? No ?: ? No ?: ? No I.U.D.?: ? No Pelvic Radiation: ?No Prior RELIGION DEPARTMENT CHAIR Therapy?: ?Other (comment) Hist Abnl Pap/Biopsy?: ?? Yes, history of previous abnormal Pap Hist of HPV Vaccine?: ?No Hist of Smoking?: ?No Hist of HAZEL exposure?: ?? No ICD Diagnosis: ? Z12.4 Encounter for screening for malignant neoplasm of cervix Clinical Data, Significant Therapy and Clinical Impression: ?_ This Pap Test has been evalu ated with the assistance of the Grapevine TalkPrep Pap Test Imaging System. Note: The Pap test is a screening test for cervical cancer with an inherent false-negative rate dependent upon several variables. ??For further information please contact the [facility] Laboratory. Reference: ??Absander CS. ? ?Tax Professional of Pap Smear Results. ??In: ??Sukumar BS, Roni HH, ed. ??The Pap Smear. ??[place]: ??Jonah, 2002: ? ?71-77. Specimen (Source) Anatomical Collection Method Collection Time Re ceived Time Location / / Volume Laterality 06/28/2015 5:02 PM EST Rosey Crabtree MD PATHOLOGY/CYTOLOGY ORDERABLE S Performing Organization Address City/State/ZIP Code [place] [address] [facility] Cytopathology Gynecological (06/28/2015 5:02 PM EST) Specimen Anatomical Collection Method Collection Time Receive d Time (Source) Location / / Volume Laterality AP Specimen 06/28/2015 5:02 PM 06/28/201 5 5:02 EST PM EST Narrative [facility] - 06/28/2015 5:[address] Specimen requisition ordered. ??Separate Pathology report to follow Rosey Crabtree MD PATHOLOGY/CYTOLOGY ORDERABLE S Performing Organization Address City/State/[place] [address] [facility] documented in this encounter Visit Diagnoses Diagnosis Encounter for routine gynecological exam ination Routine gynecological examination Perimenopause Symptomatic menopausal or female climact [place] documented in this encounter Care Teams Transplant Nurse Relationship Specialty Start Date End Date Monica Garcia MD PCP - General 01/06/13 02/27/17 [address] [place] [address] documented as of this encounter
--- OUTSIDE RECORDS SUMMARY | 2022-04-19 15:19 | XMS_ITS | Encounter Summary ---
:1965 Author Organization [facility] [place] [address] Care Team Providers Name Role Phone Monica Garcia MD Primary Care Provider Reason for Referral MRI/CAT Scan (Routine) - Closed Specialty Diagnoses / Procedures Referred By Contact Refer red To Contact Radiology Diagnoses Ultrasound for screening for growth restriction Ferdinand Michael Jr., MD [facility] Rad Ultrasound Procedures US Retroperitoneal Complete [facility] UROLOGY DEPT. [address] [address] Referral ID Status Reason Start Date Expiration Date Visits Requ ested Visits Authorized [id number] Closed 05/15/2016 05/15/2017 1 1 Reason for Visit MRI/CAT Scan (Routine) - Closed Specialty Diagnoses / Procedures Referred By Contact Refer red To Contact Radiology Diagnoses Ultrasound for screening for growth restriction Ferdinand Michael Jr., MD [facility] Rad Ultrasound Procedures US Retroperitoneal Complete [facility] [place] [address] [place] [address] Referral ID Status Reason Start Date Expiration Date Visits Requ ested Visits Authorized [id number] Closed 05/15/2016 05/15/2017 1 1 Encounter Details Date Type Department Care Team Description 07/26/2015 Hospital Encounter Ultrasound at [facility] Ferdinand Michael Ultrasound for [facility] MD J[address] screening Drive [facility] for growth [facility] [place] [address] UROLOGY DEPT. [phone] [place] [address] Social History Tobacco Use Types Packs/Day Years [...] Description 07/13/2022 Appointment Radiology Maile Hinojosa MD [facility] ENDOCRINOLOGY [place], [place] [address] (Wo rk) 07/13/2022 Office Visit Endocrinology Maile Hinojosa MD [facility] ENDOCRINOLOGY [place], [place] [address] (Wo rk) documented as of [...] ??viewed the images and agree with th meghan above interpretation. ? Weston Martin MD Electronically Signed Final Report ?? 03:41 pm Narrative 07/26/2015 3:41 PM EST Renal ?(Signed Final 07/26/2015 03:41 pm) Patient Info ID #: ? [id number] ?: ??[birth year] (49 yrs) Name: ? JESSICA ALBRIGHT ?Visit Date: 07/26/2015 03:12 pm Performed By Performed By: ? Ranjit Escobar RDMS Attending: ?Veronica GILL, Butch Moss. Referred By: ?FERDINAND MICHAEL MD Service(s) Provided ??URETRO - Retroperitoneal Complete - I [id number] ? [id number] Indications ??kidney stones Comparison Ultrasound: 02/23/14 ------- [...] 03:41 pm ) Patient Info ID #: [id number] : [birth year] (49 y rs) Name: JESSICA ALBRIGHT Visit Date: 07/26 03:12 pm Performed By Performed By: Maria Teresa Escobar RDMS Attending: Weston [place] MD Referred By: FERDINAND MICHAEL MD Service(s) Provided URETRO - Retroperitoneal Complete - [facility] [id number] Indications kidney stones Comparison Ultrasound: 02/23/14 ------- [...] ultrasonics documented in this encounter Care Teams Semiconductor Testing Group Leader Relationship Specialty Start Date End Date Monica Garcia MD PCP - General 01/06/13 02/27/17 [address] [place] [address] documented as of this encounter
--- OUTSIDE RECORDS SUMMARY | 2022-04-19 15:19 | XMS_ITS | Encounter Summary ---
:1965 Author Organization [facility] [place] [address] Care Team Providers Name Role Phone Monica Garcia MD Primary Care Provider Reason for Visit Reason Comments Follow-up Encounter Details Date Type Department Care Team Description 05/31/2016 Office Visit Obstetrics and Gynecology Ida Ron, SACHA IUD check up at [facility] Victor Manuel cifuentes [place] & [place] [address] GYNECOLOGY [phone] [place], [place] [address] (Wo rk) Social History Tobacco [...] Description 07/13/2022 Appointment Radiology Maile Hinojosa MD [facility] ENDOCRINOLOGY [place], [place] [address] (Wo rk) 07/13/2022 Office Visit Endocrinology Maile Hinojosa MD [facility] ENDOCRINOLOGY [place], [place] [address] (Wo rk) documented as of this encounter Visit Diagnoses Diagnosis IUD check up Surveillance of previously prescribed in trauterine contraceptive device documented in this encounter Care Teams [employer] Boards Relationship Specialty Start Date End Date Monica Garcia MD PCP - General 01/06/13 02/27/17 [address] [place] [address] documented as of this encounter
--- OUTSIDE RECORDS SUMMARY | 2022-04-19 15:19 | XMS_ITS | Encounter Summary ---
:1965 Author Organization [facility] [place] [address] Care Team Providers Name Role Phone Monica Garcia MD Primary Care Provider Encounter Details Date Type Department Care Team Description 04/10/2016 Office Visit Obstetrics and Ida Ron, Abnormal perimenopausal Gynecology at [facility] WET END OPERATOR bleeding [facility] [address] [place] OBSTETRICS & [address] GYNECOLOGY [phone] [place], [place] [address] Social History Tobacco Use Types [...] 13, then February 23, then March 15. [place] spotting since the . She loves her [...] MD [facility] [address] [place], [place] [address] (Rahul ascencio) 07/13/2022 Office Visit Endocrinology Maile Hinojosa MD [facility] [address] [place], [place] [address] (Wo silva) documented as of this encounter Visit Diagnoses Diagnosis Abnormal perimenopausal bleeding Premenopausal menorrhagia documented in this encounter Care Teams Contact Centre Supervisor Relationship Specialty Start Date End Date Monica Garcia MD PCP - General 01/06/13 02/27/17 [address] [place] [address] documented as of this encounter
--- OUTSIDE RECORDS SUMMARY | 2022-04-19 15:19 | XMS_ITS | Encounter Summary ---
:1965 Author Organization [facility] [address] Care Team Providers Name Role Phone Monica Garcia MD Primary Care Provider Reason for Visit Reason Comments Cognitive Problems neuropsych eval Psychiatric (Routine) - Specialty Diagnoses / Procedures Referred By Contact Refer red To Contact Psychiatry Diagnoses concerns with recent memory loss Monica Garcia MD [facility] Psych Neuro 5d Procedures PRO NEUROPSYCHOLOGICAL TESTING,PER HOUR BY SWEATBAND DECORATING MACHINE OPERATOR HUMAN RESOURCES TRAINER Testing [address] [place] [address] [place] [address] Phone: Referral ID Status Reason Start Date Expiration Date Visits V isits Requested Authorized [id number] 04/16/2016 04/16/2017 1 1 Encounter Details Date Type Department Care Team Description 09/12/2016 Office Visit Psychiatry and Salvador Palmer Mild neuro cognitive Behavioral [facility] at [facility] disorder [facility] PSYCHIATRY DEPT. 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 REASON FOR REFERRAL AND BACKGROUND: This is Stacy Albright???s first [facility] neuropsychological evaluation. She was referred in the [...] Anxiety Inventory (VLADIMIR); Avila Depression Inventory-II (BDI-II); Peacham Naming Test (BNT); Brief Visuospatial Memory Test- Revised (BVMT-R); [place] Verbal Learning Test, Second Edition(CVLT-II); Comprehension of Complex Ideational Material (from BDAE; Peacham Diagnostic Aphasia Examination); Trudy Antony Executive Functioning System (DKEFS, select subtests); Grooved Pegboard Test; Paced Auditory Serial Addition Test (PASAT, Lorenz version); Lateral Dominance Examination; Florentin Complex Figure Test; Garrochales Making Test; Nima Adult Intelligence Scale - 4th edition (WAIS-IV);Nima Memory Scale, Fourth Edition (WMS-IV, selected subtests); [place] Card Sorting Test (WCST). Total Time Spent in Testing, Interpretation, and Report Writin hours 20 minutes TEST RESULTS: Note: Tests were administered by a head of training and development. Descriptors are based on appropriate normative data [...] Score Test of Premorbid Functionin Average Memory: Nima Memory Scale-IV: Raw Score (scaled score) Logical [...] Recall 14/36 Low Average Recognition Total Correct / Average Attention / Executive Function: WAIS-IV Digit Span: Scaled Score (Max. Span) Forward 7 (5) Low Average Backward 9 (5) Average Sequencing 12 (6) High Average Paced Auditory Serial Addition Test: Raw Score 3 sec. pacing 51/60 Average 2 sec. pacing 39/60 Average Garrochales Making Test: Raw Score (T Score) Part [...] Palmer, Ph.D. Post-Doctoral Fellow Clinical Neuropsychologist Neuropsychology Armed GuardPromotions Directorrefrigerator glazier A postdoctoral fellow in neuropsychology was involved in test administration, interpretation, and report development. The interpretation and integration of pertinent clinical information found in this report was directed and verified by the supervising neuropsychologist/licensed clinical psychologist. documented in this encounter Plan of Treatment Upcoming Encounters Date Type Specialty Care Team Description 07/13/2022 Appointment Radiology Maile Hinojosa MD [facility] [address] [place], [place] [address] (Rahul ascencio) 07/13/2022 Office Visit Endocrinology Maile Hinojosa MD [facility] DR [place], [place] [address] (Wo rk) documented as of this encounter Visit Diagnoses Diagnosis Mild neurocognitive disorder documented in this encounter Care Teams Ged Tutor Relationship Specialty Start Date End Date Monica Garcia MD PCP - General 01/06/13 02/27/17 [address] [place] [address] documented as of this encounter
--- OUTSIDE RECORDS SUMMARY | 2022-04-19 15:19 | XMS_ITS | Encounter Summary ---
:1965 Author Organization [place] [address] Care Team Providers Name Role Phone Janet Davey APRN Primary Care Provider Reason for Visit Reason Comments Medication Refill Encounter Details Date Type Department Care Team Description 08/21/2015 [facility] Victor Manuel cifuentes OBSTETRICS & [place] [address] [place] [address] [phone] (Wo rk) Social History Tobacco Use Types [...] Maile Hinojosa MD [facility] DR [place] [place], [place] [address] (Wo rk) 07/13/2022 Office Visit Endocrinology Maile Hinojosa MD [facility] [address] [place] [place], [place] [address] (Wo rk) documented as of this encounter Visit Diagnoses Not on filedocumented in this encounter Care Teams Sticker Machine Operator Relationship Specialty Start Date End Date Janet Davey APRN PCP - General Family Medicine 07/13/20 [address] [place] [address] documented as of this encounter
--- OUTSIDE RECORDS SUMMARY | 2022-04-19 15:20 | XMS_ITS | Encounter Summary ---
:1965 Author Organization [facility] [place] [address] Care Team Providers Name Role Phone Monica Garcia MD Primary Care Provider Encounter Details Date Type Department Care Team Description 07/27/[address] [facility] [place] [facility] Nephrolithiasis [facility] Luis Michael Jr., MD [facility] [place] [address] [place] [address] Social History Tobacco Use Types [...] HCL (SERTRALINE 0 0 03/31/2013 ORAL) Evening [place] Oil 500 0 08/24/2010 01/24/2015 mg Cap [...] Hinojosa MD [facility] ENDOCRINOLOGY [place], [place] [address] (Wo rk) 07/13/2022 Office Visit Endocrinology Maile Hinojosa MD [facility] ENDOCRINOLOGY [place], [place] [address] (Wo rk) documented as of [...] kidney documented in this encounter Care Teams Undercover Cop Relationship Specialty Start Date End Date Monica Garcia MD PCP - General 07/18/10 03/05/12 [address] [place] [address] documented as of this encounter
--- OUTSIDE RECORDS SUMMARY | 2022-04-19 15:20 | XMS_ITS | Encounter Summary ---
:1965 Author Organization [facility] [place] [address] Care Team Providers Name Role Phone Monica Garcia MD Primary Care Provider Encounter Details Date Type Department Care Team Description 07/25/2011 Hospital Encounter XRay at [facility] Nephrolithiasis [address] [place] [address] [place] [address] Social History Tobacco Use Types Packs/Day [...] HCL (SERTRALINE 0 0 03/31/2013 ORAL) Evening [employer] Oil 500 0 08/24/2010 01/24/2015 mg Cap [...] Hinojosa MD [facility] ENDOCRINOLOGY [place], [place] [address] (Wo rk) 07/13/2022 Office Visit Endocrinology Maile Hinojosa MD [facility] ENDOCRINOLOGY [place], [place] [address] (Wo rk) documented as of [...] kidney documented in this encounter Care Teams Deck Engine Operator Relationship Specialty Start Date End Date Monica Garcia MD PCP - General 07/18/10 03/05/12 [address] [place] [address] documented as of this encounter
--- OUTSIDE RECORDS SUMMARY | 2022-04-19 15:20 | XMS_ITS | Encounter Summary ---
:1965 Author Organization [facility] [place] [address] Care Team Providers Name Role Phone Monica Garcia MD Primary Care Provider Encounter Details Date Type Department Care Team Description 07/09/2011 Hospital Encounter Ultrasound at [facility] [place] [address] Social History Tobacco Use Types Packs/Day [...] 0 08/24/2010 07/25/2011 mcg nasal spray Evening [place] Oil 500 0 08/24/2010 01/24/2015 mg Cap [...] Hinojosa MD [facility] ENDOCRINOLOGY [place], [place] [address] (Wo rk) 07/13/2022 Office Visit Endocrinology Maile Hinojosa MD [facility] ENDOCR[facility]OLOGY [place], [place] [address] (Wo rk) documented as of [...] 01 :47 pm) Patient Info ID: ? [id number] ? : [birth year] (45 yrs) Name: ? JESSICA GTZ ? Visit Date: 07/09/2011 01:28 pm Performed By Performed By: ?Tiara GARNER, Daphne Associate: ? Luciano GILL, Sumanth Ruiz Attending: ? Luna GILL, Genie Ruiz Referred By: ? CIERA ARMENDARIZ Accession#: ?[id number] Service(s) Provided URETRO - Retroperitoneal Complete - 002 [id number] ? [id number] Indications H/o nephrolithiasis, assess for new sto [...] Final 07/09/2011 01:47 pm) Patient Info ID: [id number] : [birth year] (45 yrs ) Name: JESSICA GTZ Visit Date: 07/09 01:28 pm Performed By Performed By: Daphne Menjivar RDMS Associate: Luciano GILL, Sumanth Beltran Attending: Luna GILL, Genie Dumont Referred By: CIERA [facility] Service(s) Provided URETRO - Retroperitoneal Complete - [phone] [id number] Indications H/o nephrolithiasis, assess for new sto [...] kidney documented in this encounter Care Teams Beater Out Relationship Specialty Start Date End Date Monica Garcia MD PCP - General 07/18/10 03/05/12 [address] [place] [address] documented as of this encounter
--- OUTSIDE RECORDS SUMMARY | 2022-04-19 15:20 | XMS_ITS | Encounter Summary ---
:1965 Author Organization [facility] [place] [address] Care Team Providers Name Role Phone Monica Garcia MD Primary Care Provider Reason for Visit Reason Comments Post Op Encounter Details Date Type Department Care Team Description 12/07/2010 Follow-Up [facility]rology at [facility] Chetna W[place]ell Nephrolithiasis (Primary [facility] [address]) [place] [address] UROLOGY DEPT. [phone] [place], [place] [address] Social History Tobacco Use Types [...] Hinojosa MD [facility] ENDOCRINOLOGY [place], [place] [address] (Wo rk) 07/13/2022 Office Visit Endocrinology Maile Hinojosa MD [facility] ENDOCRINOLOGY [place], [place] [address] (Wo silva) documented as of this encounter Results US retroperitoneal complete (07/09/2011 1:31 PM EST) Anatomical Region Laterality Modality Abdomen Ultrasound Specimen (Source) Anatomical Collection Method Collection Time Re ceived Time Location / / Volume Laterality 07/09/2011 1:31 PM EST Narrative 07/09/2011 1:47 PM EST ? Renal Rep ort ? (Signed Final 07/09/2011 01 :47 pm) Patient Info ID: ? [id number] ? : ??[birth year] (45 yrs) Name: ? JESSICA GTZ ? Visit Date: 07/09/2011 01:28 pm Performed By Performed By: ?Daphne Menjivar RDMS Associate: ? Luciano GILL, Sumanth Ruiz Attending: ? Luna GILL, Genie Ruiz Referred By: ? CIERA ARMENDARIZ Accession#: ?[id number] Service(s) Provided URETRO - Retroperitoneal Complete - 002 [id number] ? [id number] Indications H/o nephrolithiasis, assess for new sto [...] Final 07/09/2011 01:47 pm) Patient Info ID: [id number] : [birth year] (45 yrs ) Name: JESSICA GTZ Visit Date: 07/09 01:28 pm Performed By Performed By: Daphne Menjivar RDMS Associate: Luciano GILL, Sumanth Beltran Attending: Genie Carrasco MD Referred By: CIERA ARMENDARIZ Service(s) Provided URETRO - Retroperitoneal Complete - [facility] [id number] Indications H/o nephrolithiasis, assess for new sto [...] kidney documented in this encounter Care Teams Culture Media Laboratory Assistant Relationship Specialty Start Date End Date Monica Garcia MD PCP - General 07/18/10 03/05/12 [address] [place] [address] documented as of this encounter
--- OUTSIDE RECORDS SUMMARY | 2022-04-19 15:20 | XMS_ITS | Encounter Summary ---
:1965 Author Organization [facility] [place] [address] Care Team Providers Name Role Phone Monica Garcia MD Primary Care Provider Encounter Details Date Type Department Care Team Description 12/07/2010 Orders Only Obstetrics and Gynecology Lucy Germain APRN at [facility] Victor Manuel cifuent[place] [address] [place] [address] [phone] (Wo rk) Social History Tobacco Use Types [...] Description 07/13/2022 Appointment Radiology Maile Hinojosa MD [facility] ER ENDOCRINOLOGY [place], [place] [address] (Wo rk) 07/13/2022 Office Visit Endocrinology Maile Hinojosa MD [facility] ER ENDOCRINOLOGY [place], [place] [address] (Rahul rk) documented as of this encounter Procedures [...] on filedocumented in this encounter Care Teams Developer Architect Relationship Specialty Start Date End Date Monica Garcia MD PCP - General 07/18/10 03/05/12 [address] [place] [address] documented as of this encounter
--- OUTSIDE RECORDS SUMMARY | 2022-04-19 15:20 | XMS_ITS | Encounter Summary ---
:1965 Author Organization [facility] [place] [address] Care Team Providers Name Role Phone Monica Garcia MD Primary Care Provider Encounter Details Date Type Department Care Team Description 12/07/2010 Procedure visit [address] [address] Social History Tobacco Use Types Packs/Day Years [...] Description 07/13/2022 Appointment Radiology Maile Hinojosa MD [facility] ER DR J[place]EL [place], [place] [address] (Rahul ascencio) 07/13/2022 Office Visit Endocrinology Maile Hinojosa MD [facility] ER DR [place]EL [place], [place] [address] (Wo rk) documented as of this encounter Visit Diagnoses Not on filedocumented in this encounter Care Teams Spot Sprayer Relationship Specialty Start Date End Date Monica Garcia MD PCP - General 07/18/10 03/05/12 [address] [place] [address] documented as of this encounter
--- OUTSIDE RECORDS SUMMARY | 2022-04-19 15:20 | XMS_ITS | Encounter Summary ---
:1965 Author Organization [facility] [place] [address] Care Team Providers Name Role Phone Monica Garcia MD Primary Care Provider Encounter Details Date Type Department Care Team Description 10/04/2011 Hospital Encounter [place] [facility] [place] [address] Social History Tobacco Use Types Packs/Day [...] HCL (SERTRALINE 0 0 03/31/2013 ORAL) Evening Cascade Oil 500 0 08/24/2010 01/24/2015 mg Cap [...] Hinojosa MD [facility] ENDO[facility]OLOGY [place], [place] [address] (Wo rk) 07/13/2022 Office Visit Endocrinology Maile Hinojosa MD [facility] ER DR MARMOLEJO [place], [place] [address] (Wo rk) documented as of [...] 04 :08 pm) Patient Info ID: ? [id number] ? : [birth year] (46 yrs) Name: ? JESSICAKATIE GTZ ? Visit Date: 10/04/2011 03:50 pm Performed By Performed By: ?Lay Nichols RDMS Attending: ? Marcus Rush, Michelle Referred By: ? BOBBY Rush Service(s) Provided UTV - Ultrasound - Transvaginal - [phone] ? [id number] Indications Reason for exam and clinical history: [...] Final 10/04/2011 04:08 pm) Patient Info ID: [id number] : [birth year] (46 yrs ) Name: JESSICA GTZ Visit Date: 10/04 03:50 pm Performed By Performed By: Lay Ncihols [facility] Attending: Michelle Walsh MD Referred By: BOBBY LAGOS MD Service(s) Provided UT - Ultrasound - Transvaginal - [phone] Indications Reason for exam and clinical history: 2 7 year old with ovarian cyst (see previous TVUS); please evaluate for resolution / interval parish ge ------- History ------- Age: 46 ------ Uterus [...] cyst documented in this encounter Care Teams Epidemiology Internship Relationship Specialty Start Date End Date Monica Garcia MD PCP - General 07/18/10 03/05/12 [address] [place] [address] documented as of this encounter
--- OUTSIDE RECORDS SUMMARY | 2022-04-19 15:20 | XMS_ITS | Encounter Summary ---
:1965 Author Organization [facility] [place] [address] Care Team Providers Name Role Phone Monica Garcia MD Primary Care Provider Reason for Visit Reason Comments Follow-up Encounter Details Date Type Department Care Team Description 07/09/2011 Follow-Up Urology at [facility], DR ESPINO Nephrolithiasis (Primary [facility] Nadia Stapleton, [facility] UROLOGY DEPT. [place], [place] [id number] Dx) [place] [id number] Social History Tobacco Use Types Packs/Day Years [...] 07/13/2022 Appointment Radiology Maile Hinojosa MD [facility] ENDOCRINOLOGY [place], [place] [address] (Wo silva) 07/13/2022 Office Visit Endocrinology Maile Hinojosa MD [facility] ENDOCRINOLOGY [place], [place] [address] (Rahul ascencio) documented as of this encounter Results US retroperitoneal complete (01/08/2012 4:31 PM EDT) Anatomical Region Laterality Modality Abdomen Ultrasound Specimen (Source) Anatomical Collection Method Collection Time Re ceived Time Location / / Volume Laterality 01/08/2012 4:31 PM EDT Narrative 01/08/2012 4:59 PM EDT ? Renal ? (Signed Final 01/08/2012 04 :58 pm) Patient Info ID: ? [id number] ? : ??[birth year] (46 yrs) Name: ? JESSICA GTZ ? Visit Date: 01/08/2012 04:29 pm Performed By Performed By: ?Akash Muse RDMS Attending: ? Veronica GILL, Weston Maloney Referred By: ? FERDINAND MICHAEL MD Service(s) Provided URETRO - Retroperitoneal Complete - 002 [id number] ? [id number] Indications Nephrolithiasis Right Kidney Size (cm) ?L: [...] Final 01/08/2012 04:58 pm) Patient Info ID: [id number] : [birth year] (46 yrs ) Name: JESSICA GTZ Visit Date: 01/07 04:29 pm Performed By Performed By: Akash Muse RDMS Attending: West[place] MD. Referred By: FERDINAND MICHAEL MD Service(s) Provided URETRO - Retroperitoneal Complete - [phone] [id number] Indications Nephrolithiasis Right Kidney Size (cm) L: [...] kidney documented in this encounter Care Teams Engine Dispatcher Relationship Specialty Start Date End Date Monica Garcia MD PCP - General 07/18/10 03/05/12 [address] [place] [address] documented as of this encounter
--- OUTSIDE RECORDS SUMMARY | 2022-04-19 15:20 | XMS_ITS | Encounter Summary ---
:1965 Author Organization [facility] [place] [address] Care Team Providers Name Role Phone Monica Garcia MD Primary Care Provider Encounter Details Date Type Department Care Team Description 07/15/2011 Orders Only Urology at [facility] Ilya Bermudez, Nephrolithiasis (Primary [facility] SACHA Zuniga Dx) [place], [place] CENTER [address] UROLOGY DEPT. [phone] [place] [id number] Social History Tobacco Use Types Packs/Day Years [...] as of this encounter Progress Notes Nadia Stapleton APRN - 07/15/2011 8:48 PM EST Pt considering surgical options for her 5 mm stone. Will set her up with [facility] and discussion of surgical options with Dr. Michael. documented in this encounter Plan of Treatment Upcoming Encounters Date Type Specialty Care Team Description 07/13/2022 Appointment Radiology Maile Hinojosa MD [facility] ENDOCRINOLOGY [place], [place] [address] (Wo rk) 07/13/2022 Office Visit Endocrinology Maile Hinojosa MD [facility] ENDOCRINOLOGY [place], [place] [address] (Wo rk) documented as of this encounter Visit Diagnoses Diagnosis Nephrolithiasis - Primary Calculus of kidney documented in this encounter Care Teams Senior Graphic Designer Relationship Specialty Start Date End Date Monica Garcia MD PCP - General 07/18/10 03/05/12 [address] [place] [address] documented as of this encounter
--- OUTSIDE RECORDS SUMMARY | 2022-04-19 15:20 | XMS_ITS | Encounter Summary ---
:1965 Author Organization [facility] [place] [address] Care Team Providers Name Role Phone Monica Garcia MD Primary Care Provider Encounter Details Date Type Department Care Team Description 01/09/2013 Orders Only Endocrinology at [facility] C Jennifer Romero, Osteoporosis (Primary [facility] Dx) [place] [address] CENTER [phone] ENDOCRINOLOGY DEPT [place], [place] [address] Social History Tobacco Use Types [...] Radiology Maile Hinojosa MD [facility] ER ENDOCRINOLOGY [place], [place] 0[address] (Wo rk) 07/13/2022 Office Visit Endocrinology Maile Hinojosa MD [facility] ENDOCRINOLOGY [place], [place] [address] (Wo rk) documented as of this encounter Visit Diagnoses Diagnosis Osteoporosis - Primary Osteoporosis, unspecified documented in this encounter Care Teams Legislators Relationship Specialty Start Date End Date Monica Garcia MD PCP - General 01/06/13 02/27/17 [address] [place] [address] documented as of this encounter
--- OUTSIDE RECORDS SUMMARY | 2022-04-19 15:20 | XMS_ITS | Encounter Summary ---
:1965 Author Organization [facility] [place] [address] Care Team Providers Name Role Phone Monica Garcia MD Primary Care Provider Reason for Visit Reason Comments Follow-up Encounter Details Date Type Department Care Team Description 01/06/2013 Follow-Up Urology at [facility], DR ESPINO Urolithiasis (Primary [facility] Luis Michael Jr., MD [facility] DR UROLOGY DEPT. [place] [id number] Dx) [place] [address] Social History Tobacco Use Types Packs/Day [...] Hinojosa MD [facility] ENDOCRINOLOGY [place], [place] [address] (Wo rk) 07/13/2022 Office Visit Endocrinology Maile Hinojosa MD [facility] ENDOCRINOLOGY [place], [place] [address] (Wo rk) documented as of this encounter Visit Diagnoses Diagnosis Urolithiasis - Primary Urinary calculus, unspecified documented in this encounter Care Teams Urogynaecologist Relationship Specialty Start Date End Date Monica Garcia MD PCP - General 01/06/13 02/27/[address] [place] [address] documented as of this encounter
--- OUTSIDE RECORDS SUMMARY | 2022-04-19 15:20 | XMS_ITS | Encounter Summary ---
:1965 Author Organization [facility] [place] [address] Care Team Providers Name Role Phone Monica Garcia MD Primary Care Provider Encounter Details Date Type Department Care Team Description 01/06/2014 Telephone Obstetrics and Gynecology at Ramses Boyce MD [facility] Victor Manuel cifuentes OBSTETRICS & [place] [address] [place] [address] [phone] Social History Tobacco Use Types Packs/Day Years [...] Description 07/13/2022 Appointment Radiology Maile Hinojosa MD [facility] DR MARMOLEJO [place], [place] [address] (Wo rk) 07/13/2022 Office Visit Endocrinology Maile Hinojosa MD [facility] DR MARMOLEJO [place], [place] [address] (Wo rk) documented as of this encounter Visit Diagnoses Not on filedocumented in this encounter Care Teams Asset Protection Representative Relationship Specialty Start Date End Date Monica Garcia MD PCP - General 01/06/13 02/27/17 [address] [place] [address] documented as of this encounter
--- OUTSIDE RECORDS SUMMARY | 2022-04-19 15:20 | XMS_ITS | Encounter Summary ---
:1965 Author Organization [place] [address] Care Team Providers Name Role Phone None Primary Care Provider Unavailable Encounter Details Date Type Department Care Team Description 03/06/2012 Hospital Encounter Mammography at [facility] [place] [address] Social History Tobacco Use Types Packs/Day [...] HCL (SERTRALINE 0 0 03/31/2013 ORAL) Evening Tolstoy Oil 500 0 08/24/2010 01/24/2015 mg Cap [...] Hinojosa MD [facility] END[facility] [place], [place] [address] (Wo rk) 07/13/2022 Office Visit Endocrinology Maile Hinojosa MD [facility] END[facility] [place], [place] [address] (Wo rk) documented as of this encounter Procedures Procedure Name Priority Date/Time Associated Diagnosis Comme nts SOLAR WATER HEATER INSTALLER CYTOLOGY FINAL Routine 03/06/2012 8:45 PM Res ults for this REPORT EDT procedure are i n the results section. MAMMO SCREENING CAD Routine 03/06/2012 3:58 PM Re sults for this BILATERAL EDT procedure are i n the results section. documented in this encounter Results SOLAR WATER HEATER INSTALLER CYTOLOGY FINAL REPORT (03/06/2012 8:45 PM EDT) Component Value Ref Test Analysis Performed At [facility] gist Range Method Time Signature Process Development Engineer Cytology CERNER Final Report ? [facility] ? Provider: ?? [place] BIRCH ?Pt. Name: ?? LAW SON, JESSICA Charles ? Acc #: ?[id number] ?Pt. MRN: ?[id number] ? Col Date: ?? 03/06/2012 ? /Sex: ?1 10/14/1964,(46 ? years),Female ? Rec Date: ?? 03/06/2012 ? LOC: ?5L ? CYTOPATHOLOGY: ??SOLAR WATER HEATER INSTALLER ? ---Adequacy--- ? Specimen submitted is satisfactory. ? Endocervical component present. ? ---Cytopathologic Diagnosis--- ? Infection and/or Reactive Repair Process. ? Note: ??Reactive changes are present in the epithel ial cells (benign ? cellular changes). ?? This Pap test is negative for intraepithelial lesion ? or malignancy. (NILM) ? 03/19/12 ?? Screened by: ??SLA ??DETAIL ASSEMBLER ? 03/23/12 ?? Verified by: ??YUNG GILL , DRE - Pathologist ? ---Clinical Information--- ? HPV Option: ? Reflex HPV ? Preparation: ?Liquid Based Pap ? Specimen Source: ?Cervical Endocervical LBP ? LMP: ?continous bleeding ? Hormones?: ?Yes ? Hysterectomy?: ?No ?: ?No ?: ?No ? I.U.D.?: ?No ? Pelvic Radiation: ? No ? Prior SOLAR WATER HEATER INSTALLER Therapy?: ? No ? Hist Abnl Pap/Biopsy?: [...] ??For further ? information please contact the [facility] Laboratory. ? Reference: ??Antwan h CS. ??Reimbursement Spec of Pap Smear Results. ??In: ? Sukumar BS, Roni HH, ed. ??The Pap Smear. ??[place]: ??Jonah 2002: ? 71-77. Specimen (Source) Anatomical Collection Method Collection Time Re ceived Time Location / / Volume Laterality 03/06/2012 8:45 PM EDT Indiana Birch MD PATHOLOGY/CYTOLOGY ORDERABLE S Performing Organization Address City/State/[place] [address] [employer] MAMMO DIGITAL BILATERAL SCREENING WITH CAD (03/06/2012 [...] on filedocumented in this encounter Care Teams Associate Store Leader Relationship Specialty Start Date End Date None PCP - General 03/06/12 01/05/13 None documented as of this encounter
--- OUTSIDE RECORDS SUMMARY | 2022-04-19 15:20 | XMS_ITS | Encounter Summary ---
:1965 Author Organization [facility] [place] [address] Care Team Providers Name Role Phone Monica Garcia MD Primary Care Provider Encounter Details Date Type Department Care Team Description 01/06/2013 Hospital Encounter Ultrasound at [facility] [place] [address] Social History Tobacco Use Types Packs/Day [...] HCL (SERTRALINE 0 0 03/31/2013 ORAL) Evening [place] Oil 500 0 08/24/2010 01/24/2015 mg Cap [...] Hinojosa MD [facility] END[facility] [place], [place] [address] (Wo rk) 07/13/2022 Office Visit Endocrinology Maile Hinojosa MD [facility] ER ENDOCRINOLOGY [place], [place] [address] (Wo rk) documented as of [...] 01/06/2013 02 :33 pm) Patient Info ID: ?[id number] ?: ??[birth year] (47 yrs) Name: ?JESSICA GTZ ?Visit Date: 01/06/2013 02:22 pm Performed By Performed By: ?Hernan GARNER, ??Rozina christianson Attending: ? Veronica GILL, Weston Maloney Referred By: ? FERDINAND MICHAEL MD Service(s) Provided URETRO - Retroperitoneal Complete - 002 [id number] ? [id number] Indications History of kidney stones Comparison Ultrasound: [...] Final 01/06/2013 02:33 pm) Patient Info ID: [id number] : [birth year] (47 yrs ) Name: JESSICA GTZ Visit Date: 01/06 02:22 pm Performed By Performed By: Xiomy Becerra RDMS Attending: Weston [place] MD. Referred By: FERDINAND MICHAEL MD Service(s) Provided URETRO - Retroperitoneal Complete - [facility] [phone] [id number] Indications History of kidney stones Comparison Ultrasound: [...] kidney documented in this encounter Care Teams Algology Teacher Relationship Specialty Start Date End Date Monica Garcia MD PCP - General 01/06/13 02/27/17 [address] [place] [address] documented as of this encounter
--- OUTSIDE RECORDS SUMMARY | 2022-04-19 15:20 | XMS_ITS | Encounter Summary ---
:1965 Author Organization [facility] [place] [address] Care Team Providers Name Role Phone Monica Garcia MD Primary Care Provider Reason for Visit Reason Comments Nephrolithiasis Encounter Details Date Type Department Care Team Description 01/08/2012 Follow-Up Urology at [facility], DR ESPINO Nephrolithiasis (Primary [facility] Ferdinand Michael Jr., MD [facility] [place] [address] Dx) [place] [phone] Social History Tobacco Use Types Packs/Day Years [...] Hinojosa MD [facility] ENDOCRINOLOGY [place], [place] [address] (Wo silva) 07/13/2022 Office Visit Endocrinology Maile Hinojosa MD [facility] ENDOCRINOLOGY [place], [place] [address] (Wo silva) documented as of this encounter Results US retroperitoneal complete (07/08/2012 3:49 PM EST) Anatomical Region Laterality Modality Abdomen Ultrasound Specimen (Source) Anatomical Collection Method Collection Time Re ceived Time Location / / Volume Laterality 07/08/2012 3:49 PM EST Narrative 07/08/2012 5:17 PM EST ? Renal ? (Signed Final 07/08/2012 05 :16 pm) Patient Info ID: ? [id number] ? : ??[birth year] (46 yrs) Name: ? JESSICAKATIE GTZ ? Visit Date: 07/08/2012 03:45 pm Performed By Performed By: ?Shane Burciaga RDMS Attending: ? Noman GILL, Rose Narayan Referred By: ? FERDINAND MICHAEL MD Service(s) Provided URETRO - Retroperitoneal Complete - 002 [id number] ? [id number] Indications History of kidney stones Right Kidney [...] Final 07/08/2012 05:16 pm) Patient Info ID: [id number] : [birth year] (46 yrs ) Name: JESSICA GTZ Visit Date: 07/08 03:45 pm Performed By Performed By: Genie Burciaga RDMS Attending: Rose Tineo MD. Referred By: FERDINAND MICHAEL MD Service(s) Provided URETRO - Retroperitoneal Complete - 002 [id number] Indications History of kidney stones Right Kidney [...] kidney documented in this encounter Care Teams Exercise Physiology Professor Relationship Specialty Start Date End Date Monica Garcia MD PCP - General 07/18/10 03/05/12 [address] [place] [address] documented as of this encounter
--- OUTSIDE RECORDS SUMMARY | 2022-04-19 15:20 | XMS_ITS | Encounter Summary ---
:1965 Author Organization [facility] [place] [address] Care Team Providers Name Role Phone Monica Garcia MD Primary Care Provider Encounter Details Date Type Department Care Team Description 12/07/2010 Orders Only Urology at [facility] Luis Michael Jr., [place] [address] UROLOGY DEPT. [phone] [place], [place] [address] (Wo rk) Social History Tobacco [...] MD [facility] ER ENDOCRINOLOGY [place] 0[address] (Wo rk) 07/13/2022 Office Visit Endocrinology Maile Hinojosa MD [facility] ENDOCRINOLOGY [place] [address] (Wo rk) documented as of this encounter Procedures Procedure Name Priority Date/Time Associated Comments Diagnosis US RETROPERITONEAL Routine 12/07/2010 3:48 Result s for this COMPLETE PM EDT procedure are i n the results section. documented in this encounter Results US RETROPERITONEAL COMPLETE (12/07/2010 3:48 PM EDT) Anatomical Region Laterality Modality Abdomen Ultrasound Specimen (Source) Anatomical Collection Method Collection Time Re ceived Time Location / / Volume Laterality 12/07/2010 3:48 PM EDT Narrative 12/07/2010 4:19 PM EDT ? Adult Renal Rep ort ? (Signed Final 12/07/2010 03 :27 pm) Patient Info ID: ?[id number] ?: ??[birth year] (45 yrs) Name: ?JESSICA GTZ ?Visit Date: 12/07/2010 03:16 pm Procedures URETRO - Retroperitoneal Complete - 002 [id number] ? [id number] Indications ? Stones ? Hydronephrosis ------- History ------- S/P Uretroscopy Right Kidney Size (cm) ?L: ??10.7 Cortical Thickness: ? Normal Cortical Echogenicity: ??Normal Hydronephrosis: ? No sonograp hic evidence Left Kidney Size (cm) ?L: ??10.7 Cortical Thickness: ? Normal Cortical Echogenicity: ??Normal Hydronephrosis: ? No sonograp hic evidence Comment: ?No evidence for echogenic stones or ? pelviecaliectasis. Urinary Bladder Pre-void (cm) ? L: ??6.5 ? A P: ??4.6 ? TV: ??10.2 Vol (ml): ?159.7 Comment: ?Partially distended, norm al contour. ??Bilateral ? ureteral jets demonst rated. Impression Ultrasound - ??Retroperitoneal Complete - Summary Normal renal ultrasound. No stones iden tified. I ??viewed the images and agree with kristi christianson above interpretation. Thank you for allowing us to participat e in the care of JESSICA GTZ. Please do not hesitate to call if you have any questions. ?Celine dill MD Electronically Signed Final Report ?? 03:27 pm Film and interpretation reviewed by the attending Procedure Note Celine Anna MD - 12/07/2010Forma tting of this note might be different from the original. Adult Renal Report (Signed Final 12/07/2010 03:27 pm) Patient Info ID: [id number] : [birth year] (45 yrs ) Name: JESSICA GTZ Visit Date: 12/07 03:16 pm Procedures URETRO - Retroperitoneal Complete - 002 [id number] Indications ? Stones ? Hydronephrosis ------- History ------- S/P Uretroscopy Right Kidney Size (cm) L: 10.7 Cortical Thickness: Normal Cortical Echogenicity: Normal Hydronephrosis: No sonographic evidence Left Kidney Size (cm) L: 10.7 Cortical Thickness: Normal Cortical Echogenicity: Normal Hydronephrosis: No sonographic evidence Comment: No evidence for echogenic ston es or pelviecaliectasis. Urinary Bladder Pre-void (cm) L: 6.5 AP: 4.6 TV: 10.2 Vol (ml): 159.7 Comment: Partially distended, normal co ntour. Bilateral ureteral jets demonstrated. Impression Ultrasound - Retroperitoneal Complete - Summary Normal renal ultrasound. No stones iden tified. I viewed the images and agree with the above interpretation. Thank you for allowing us to participat e in the care of JESSICA GTZ. Please do not hesitate to call if you have any questions. Celine Anna MD Electronically Signed Final Report 12/07 03:27 pm Film and interpretation reviewed by the attending Luis Michael Jr., MD IMG US GEN ORDERABLES documented in this encounter Visit Diagnoses Not on filedocumented in this encounter Care Teams Resource Development Manager Relationship Specialty Start Date End Date Monica Garcia MD PCP - General 07/18/10 03/05/12 [address] [place] [address] documented as of this encounter
--- OUTSIDE RECORDS SUMMARY | 2022-04-19 15:20 | XMS_ITS | Encounter Summary ---
:1965 Author Organization [facility] [place] [address] Care Team Providers Name Role Phone Monica Garcia MD Primary Care Provider Reason for Visit Reason Comments Medication Refill Encounter Details Date Type Department Care Team Description 01/17/2013 Refill Obstetrics and Gynecology at Genoveva Larkin MD [facility] Victor Manuel cifuentes OBSTETRICS & [place] [address] [place] [address] [phone] (Wo rk) Social History Tobacco Use Types [...] Description 07/13/2022 Appointment Radiology Maile Hinojosa MD [facility] ER ENDOCRINOLOGY [place], [place] [address] (Wo rk) 07/13/2022 Office Visit Endocrinology Maile Hinojosa MD [facility] ENDOCRINOLOGY [place], [place] [address] (Wo rk) documented as of this encounter Visit Diagnoses Not on filedocumented in this encounter Care Teams Annual Giving Officer Relationship Specialty Start Date End Date Monica Garcia MD PCP - General 01/06/13 02/27/17 [address] [place] [address] documented as of this encounter
--- OUTSIDE RECORDS SUMMARY | 2022-04-19 15:20 | XMS_ITS | Encounter Summary ---
:1965 Author Organization [facility] [place] [address] Care Team Providers Name Role Phone Monica Garcia MD Primary Care Provider Encounter Details Date Type Department Care Team Description 02/13/2011 Hospital Encounter Laboratory Monica Garcia, [facility] [place] [address] [address] [place], [place] [address] (Wo rk) Social History Tobacco [...] 0 08/24/2010 07/25/2011 mcg nasal spray Evening [place] Oil 500 0 08/24/2010 01/24/2015 mg Cap [...] Description 07/13/2022 Appointment Radiology Maile Hinojosa MD [facility] ER ENDOCRINOLOGY [place], [place] [address] (Wo rk) 07/13/2022 Office Visit Endocrinology Maile Hinojosa MD [facility] MED[facility] ER ENDOCRINOLOGY [place], [place] [address] (Wo rk) documented as of this encounter Visit Diagnoses Not on filedocumented in this encounter Care Teams Paper Cutting Machine Operator Relationship Specialty Start Date End Date Monica Garcia MD PCP - General 07/18/10 03/05/12 [address] [place] [address] documented as of this encounter
--- OUTSIDE RECORDS SUMMARY | 2022-04-19 15:20 | XMS_ITS | Encounter Summary ---
:1965 Author Organization [facility] [place] [address] Care Team Providers Name Role Phone Monica Garcia MD Primary Care Provider Reason for Visit Reason Comments Ovarian Cyst Encounter Details Date Type Department Care Team Description 10/04/2011 Office Visit Obstetrics and [place], Ovarian cystic mass Gynecology at [facility] Michelle Curry MD (Primary Dx) [facility] [place], [place] OBSTETRICS & [address] GYNECOLOGY [phone] [place], [place] [address] (Wo rk) Social History Tobacco [...] Hinojosa MD [facility] ENDOCRINOLOGY [place], [place] [address] (Wo rk) 07/13/2022 Office Visit Endocrinology Maile Hinojosa MD [facility] ENDOCRINOLOGY [place], [place] [address] (Wo rk) documented as of this encounter Visit Diagnoses Diagnosis Ovarian cystic mass - Primary Other and unspecified ovarian cyst documented in this encounter Care Teams Professor Of Sport Management Relationship Specialty Start Date End Date Monica Garcia MD PCP - General 07/18/10 03/05/12 [address] [place] [address] documented as of this encounter
--- OUTSIDE RECORDS SUMMARY | 2022-04-19 15:20 | XMS_ITS | Encounter Summary ---
:1965 Author Organization [facility] [place] [address] Care Team Providers Name Role Phone Monica Garcia MD Primary Care Provider Encounter Details Date Type Department Care Team Description 04/24/2013 Hospital Encounter Mammography at [facility] [place] [address] Social History Tobacco Use Types Packs/Day [...] inhaler daily as needed (winter time). Evening [place] Oil 500 0 08/24/2010 01/24/2015 mg Cap [...] Hinojosa MD [facility] ENDOCRINOLOGY [place], [place] [address] (Wo rk) 07/13/2022 Office Visit Endocrinology Maile Hinojosa MD [facility] ENDOCRINOLOGY [place], [place] [address] (Wo rk) documented as of [...] also performed with 3D tomographic imaging in [facility] and projec tions. The exam was evaluated by [...] on filedocumented in this encounter Care Teams Shotgun Shell Assembly Machine Adjuster Relationship Specialty Start Date End Date Monica Garcia MD PCP - General 01/06/13 02/27/17 [address] [place] [address] documented as of this encounter
--- OUTSIDE RECORDS SUMMARY | 2022-04-19 15:20 | XMS_ITS | Encounter Summary ---
:1965 Author Organization [facility] Address [facility] [place] [address] Care Team Providers Name Role Phone Monica Garcia MD Primary Care Provider Reason for Visit Reason Comments Gynecologic Exam last pap 03/06/12 infection o r repair Encounter Details Date Type Department Care Team Description 04/24/2013 Office Visit Obstetrics and Ramses Birch MD Encounter for annual health examination (Primary Dx); Gynecology at [facility] Well woman exam with routine gynecological exam [facility] [address] OBSTETRICS & [place], [place] GYNECOLOGY [address] [place] [address] [phone] Social History Tobacco Use Types Packs/Day Years [...] 9:37 AM EDT Annual Visit Stacy Albright [id number] 04/24/2013 MONICA GARCIA MD Reason for Visit: Stacy is a 47 y.o. perimenopausal female who presents for her annual EMERGENCY DEPARTMENT PHYSICIAN exam. She also presents with the following [...] indicated at this age Thyroid: Done in 2011 Fasting Glucose: Will follow with PCP whether this has been done recently and repeat if needed. Urinalysis: Not indicate at this age Bone Density: Being managed by her Machine Ii Coremaker, not due at this time OB History [...] History Procedure Date ??? Created by interface EJosephSJosephWGuido([employer]) Procedure Date: 01/16/2008 ??? Lithotripsy Family History [...] a normal pubic hair distribution. The Bartholin'sand [place]'s glands are unremarkable. The urethra is without [...] Hinojosa MD [facility] ENDOCRINOLOGY [place] [address] (Wo rk) 07/13/2022 Office Visit Endocrinology Maile Hinojosa MD [facility] ENDOCRINOLOGY [place], [place] [address] (Wo rk) documented as of this encounter Visit Diagnoses Diagnosis Encounter for annual health examination - Primary Routine general medical examination at a health care facility Well woman exam with routine gynecologic al exam Routine gynecological examination documented in this encounter Care Teams Business Center Attendant Relationship Specialty Start Date End Date Monica Garcia MD PCP - General 01/06/13 02/27/17 [address] [place] [address] documented as of this encounter
--- OUTSIDE RECORDS SUMMARY | 2022-04-19 15:20 | XMS_ITS | Encounter Summary ---
:1965 Author Organization [facility] [place] [address] Care Team Providers Name Role Phone Janet Dvaey SACHA Primary Care Provider Reason for Visit Reason Comments Medication Refill Encounter Details Date Type Department Care Team Description 01/02/2014 Refill Obstetrics and Gynecology at Jaqueline bravo, Genoveva Bobo MD [facility] [place] [address] [place] [address] [phone] Social History Tobacco Use Types Packs/Day Years [...] Radiology Maile Hinojosa MD [facility] ER DR MARMOLE[address] [place], [place] [address] (Wo rk) 07/13/2022 Office Visit Endocrinology Maile Hinojosa MD [facility] ER ENDOCRINOLOGY [place], [place] [address] (Wo rk) documented as of this encounter Visit Diagnoses Not on filedocumented in this encounter Care Teams Quality Compliance Consultant Relationship Specialty Start Date End Date Janet Davey APRN PCP - General Family Medicine 07/13/20 [address] [place] [address] documented as of this encounter
--- OUTSIDE RECORDS SUMMARY | 2022-04-19 15:20 | XMS_ITS | Encounter Summary ---
:1965 Author Organization [facility] [place] [address] Care Team Providers Name Role Phone Monica Garcia MD Primary Care Provider Reason for Visit Reason Comments Osteoporosis Encounter Details Date Type Department Care Team Description 03/31/2013 Office Visit Endocrinology at [facility] C Jennifer Romero, Osteoporosis (Primary [facility] MD Dx) [place] [address] CENTER [phone] ENDOCRINOLOGY [place] [address] Social History Tobacco Use Types Packs/Day Years [...] follow up of 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She was evaluated by COOLING SYSTEM OPERATOR and found to have osteoporosis on Dexa [...] with Dr Daniel Romero MD Endocrinology Fellow 9555 documented in this encounter Plan of Treatment Upcoming Encounters Date Type Specialty Care Team Description 07/13/2022 Appointment Radiology Maile Hinojosa MD [facility] ENDOCRINOLOGY [place], [place] [address] (Wo rk) 07/13/2022 Office Visit Endocrinology Maile Hinojosa MD [facility] ER ENDOCRINOLOGY [place], [place] [address] (Wo rk) documented as of this encounter [...] D Total Evaluation (03/31/2013 2:27 PM EDT) athologist Signature 25-OH Vit D 44 30 - 100 CERNER Total ng/mL [facility] Comment: Deficient <10 ng/mL Insufficient 10 to [...] Organization Address City/State/[place] [address] CERNER MILLENNIUM Calcium (03/31/2013 2:27 [...] Organization Address City/State/[place] [address] CERNER MILLENNIUM documented in this encounter Visit Diagnoses Diagnosis Osteoporosis - Primary Osteoporosis, unspecified documented in this encounter Care Teams Oven Tender Relationship Specialty Start Date End Date Monica Garcia MD PCP - General 01/06/13 02/27/17 [address] [place] [address] documented as of this encounter
--- OUTSIDE RECORDS SUMMARY | 2022-04-19 15:20 | XMS_ITS | Encounter Summary ---
:1965 Author Organization [facility] [place] [address] Care Team Providers Name Role Phone None Primary Care Provider Unavailable Encounter Details Date Type Department Care Team Description 03/27/2012 Telephone Endocrinology at [facility] Jennifer Pike MD [facility] [place] [address] ENDOCRINOLOGY DEPT [phone] [place], [place] [address] (Wo rk) Social History Tobacco [...] Hinojosa MD [facility] ENDOCRINOLOGY [place], [place] [address] (Wo rk) 07/13/2022 Office Visit Endocrinology Maile Hinojosa MD [facility] ENDOCRINOLOGY [place], [place] [address] (Wo rk) documented as of this encounter Visit Diagnoses Not on filedocumented in this encounter Care Teams Fur Liner Relationship Specialty Start Date End Date None PCP - General 03/06/12 01/05/13 None documented as of this encounter
--- OUTSIDE RECORDS SUMMARY | 2022-04-19 15:20 | XMS_ITS | Encounter Summary ---
:1965 Author Organization [facility] Address [facility] [place] [address] Care Team Providers Name Role Phone Monica Garcia MD Primary Care Provider Encounter Details Date Type Department Care Team Description 08/07/2011 Orders Only Obstetrics and Bobby Diamond Ovarian cyst (Primary Gynecology at [facility] MD Victor Manuel Dx) [facility] [place] [address] OBSTETRICS & [phone] GYNECOLOGY [place], [place] [address] Social History Tobacco Use Types [...] Maile Hinojosa MD [facility] DR [place], [place] [address] (Wo rk) 07/13/2022 Office Visit Endocrinology Maile Hinojosa MD [facility] ER DR ENDOCRINOLOGY [place], [place] [address] (Wo rk) documented as of this encounter Visit Diagnoses Diagnosis Ovarian cyst - Primary Other and unspecified ovarian cyst documented in this encounter Care Teams Nerve Specialist Relationship Specialty Start Date End Date Monica Garcia MD PCP - General 07/18/10 03/05/12 [address] [place] [address] documented as of this encounter
--- OUTSIDE RECORDS SUMMARY | 2022-04-19 15:20 | XMS_ITS | Encounter Summary ---
:1965 Author Organization [place] [place] [address] Care Team Providers Name Role Phone Monica Garcia MD Primary Care Provider Encounter Details Date Type Department Care Team Description 12/01/2013 Orders Only Urology at [facility] Ferdinand Michael Kidney stones (Primary [facility] [place] [address] UROLOGY DEPT. [place], [place] [address] Social History Tobacco Use Types [...] Maile Hinojosa MD [facility] ER ENDOCRINOLOGY [place], [place] [address] (Wo rk) 07/13/2022 Office Visit Endocrinology Maile Hinojosa MD [facility] DR ENDOCRINOLOGY [place], [place] [address] (Wo rk) documented as of this encounter Results US retroperitoneal complete (02/23/2014 4:21 PM EDT) Anatomical Region Laterality Modality Abdomen Ultrasound Specimen (Source) Anatomical Collection Method Collection Time Re ceived Time Location / / Volume Laterality 02/23/2014 4:21 PM EDT Narrative 02/23/2014 5:21 PM EDT ? Renal ?(Signed Final 02/23/2014 05:20 pm) Patient Info ID: ?[id number] ?: ??[birth year] (48 yrs) Name: ?JESSICA GTZ ?Visit Date: 02/23/2014 04:19 pm Performed By Performed By: ?Mariann Leonard RDMS Associate: ? Jabari GILL, Bobby Alvarez Attending: ? Genie Carrasco MD Referred By: ? FERDINAND MICHAEL MD Service(s) Provided URETRO - Retroperitoneal Complete - 002 [id number] ? [id number] Indications Hx of kidney stones Comparison Renal/bladder ultrasound 5/14/13. Right Kidney Size (cm) ?L: ??9.4 Cortical [...] Final 02/23/2014 05:20 pm) Patient Info ID: [id number] : [birth year] (48 yrs ) Name: JESSICA GTZ Visit Date: 02/23 04:19 pm Performed By Performed By: Mariann Leonard RDMS Associate: Jabari GILL, Bobby Alvarez Attending: Genie Carrasco MD Referred By: FERDINAND MICHAEL MD Service(s) Provided URETRO - Retroperitoneal Complete - 002 [id number] Indications Hx of kidney stones Comparison Renal/bladder [...] kidney documented in this encounter Care Teams Member Of The Legislative Assembly Relationship Specialty Start Date End Date Monica Garcia MD PCP - General 01/06/13 02/27/17 [address] [place] [address] documented as of this encounter
--- OUTSIDE RECORDS SUMMARY | 2022-04-19 15:20 | XMS_ITS | Encounter Summary ---
:1965 Author Organization [place] [address] Care Team Providers Name Role Phone Moinca Garcia MD Primary Care Provider Reason for Visit Reason Onset Date Comments Results 07/31/2011 Encounter Details Date Type Department Care Team Description 07/31/2011 Telephone [facility]rology at [facility] Luis Michael Jr., MD Results [facility] [place] [address] UROLOGY DEPT. [phone] [place], [place] [address] (Wo rk) Social History Tobacco [...] noted. I recommended that she see her FRYLINE ATTENDANT for further discussion and/or eval. She understands and will plan to call FRYLINE ATTENDANT tomorrow. No urologic intervention needed at this time. documented in this encounter Plan of Treatment Upcoming Encounters Date Type Specialty Care Team Description 07/13/2022 Appointment Radiology Maile Hinojosa MD [facility] ENDOCRINOLOGY [place], [place] [address] (Wo rk) 07/13/2022 Office Visit Endocrinology Maile Hinojosa MD [facility] ENDOCRINOLOGY [place], [place] [address] (Wo rk) documented as of this encounter Visit Diagnoses Not on filedocumented in this encounter Care Teams Interior Specialist Relationship Specialty Start Date End Date Monica Garcia MD PCP - General 07/18/10 03/05/12 [address] [place] [address] documented as of this encounter
--- OUTSIDE RECORDS SUMMARY | 2022-04-19 15:20 | XMS_ITS | Encounter Summary ---
:1965 Author Organization [facility] [place] [address] Care Team Providers Name Role Phone None Primary Care Provider Unavailable Reason for Visit Reason Comments Follow-up hormone patch Encounter Details Date Type Department Care Team Description 07/03/2012 Follow-Up Obstetrics and Ramses Birch MD [facility] OBSTETRICS & [place] [address] Perimenopause (Primary Dx); Gynecology at [facility] Destiney Gomes MD [facility] OBSTETRICS & [place] [address] [place] [address] Social History Tobacco Use Types Packs/Day [...] Sign Reading Time Taken Comments Blood Pressure 98/62 07/03/2012 4:04 PM EST Pulse - - Temperature - - Respiratory Rate - - Oxygen Saturation - - Inhaled Oxygen Concentration - - Weight - - Height - - Body Mass Index - - documented in this encounter Progress Notes Los Villa MD - 07/04/2012 12:41 PM EST The case was discussed at the time of the visit or immediately after the visit. The assessment and plan were formulated in discussion with me and I agree with them as documented. I have reviewed the history, physical exam, assessment and plan with the resident. Major issues discussed today: Patient has concerns regarding intermittent flattening at the vulva. Normal exam today per Dr. Gomes. Some perimenopausal symtpoms. Plan: Follow up acutely if symptoms recur. LOS VILLA MD Destiney Gomes - 07/03/2012 4:39 PM EST Gynecology Clinic Follow Up Visit Chief Complaint Patient presents with ??? Follow-up hormone patch HPI: Ms. Albright is a 46 year old P3 perimenopausal woman who presents for follow up of her Climera patch (estradiol-levonorgestrel 0.045 - 0.015). She was started on this by Dr. Birch 02/2012 for hot flashes, mood swings, vaginal dryness. Today, Ms. Albright states that the aforementioned sxs are much improved on the patch. She has had a menses 02/2012 and 04/2012 and then went until a few days ago before starting to spot again (however, she attributes this to running out of the patch last week). Ms. Albright complains that over the past 6 months, she has developed intermitting flattening (sinking) of her left labia majora with associated dryness of that labia and a small fissuring. She states that this has happened once since 02/2012. It is bothersome when it happens because it is sore. It persists for days despite use of Vasoline. She has no h/o STI's. Denies associated itching/burning. Cannot have intercourse when this happens due to discomfort. When this is not happening, she reports thatthe labia appear normal and she feels well lubricated for intercourse. Of note, Ms. Albright has a remote h/o episiotomy with no known residual complications. Of note, had TVUS 07/2011 with endometrial stripe of 4.5 mm. Past Medical History Diagnosis Date ??? Asthma ??? Raynaud's disease ??? History of nephrolithiasis ??? Migraines ??? Abnormal glandular Papanicolaou smear of cervix age 15 ??? Vaginal infection PID at 15 Past Surgical History Procedure Date ??? Created by [employer] Cathy(MSUROL) Procedure Date: 01/16/2008 ??? Lithotripsy Current outpatient prescriptions ordered prior to encounter Medication Sig Dispense Refill ??? cetirizine (ZYRTEC) 10 mg tablet Take 10 mg by mouth daily. ??? MOMETASONE FUROATE (NASONEX NASL) by Nasal route daily. ??? fluticasone-salmeterol (ADVAIR) 500-50 mcg/dose diskus inhaler Inhale 1 puff into the lungs 2 times daily. ??? multivitamin (THERAGRAN) tablet Take 1 tablet by mouth daily. ??? montelukast (SINGULAIR) 10 mg tablet Take 10 mg by mouth every morning. ??? SERTRALINE HCL (SERTRALINE ORAL) ??? Evening [place] Oil 500 mg Cap ??? albuterol (ACCUNEB) 0.63 mg/3 mL nebulizer solution ??? FOLIC ACID/VITAMIN B COMP W-C (B-COMPLEX WITH VITAMIN C ORAL) ??? SUMATRIPTAN SUCCINATE (IMITREX ORAL) ??? tacrolimus (PROTOPIC) 0.1 % ointment 1 Appl(s) Top Twice daily ??? ERGOCALCIFEROL, VITAMIN D2, (VITAMIN D ORAL) ??? KETOCONAZOLE (NIZORAL TOP) ??? DISCONTD: TRIAMCINOLONE ACETONIDE (NASACORT AQ NASL) by Nasal route. ??? DISCONTD: predniSONE (DELTASONE) 20 mg tablet Take 25 mg by mouth daily. ??? DISCONTD: fexofenadine (JEREL) 60 mg tablet Take by mouth daily. Allergies Allergen Reactions ??? Grass Pollen-bermuda, Standard Other (See Comments) Runny nose, itching, sneezing Review of Systems Constitutional: Negative for fever, chills, activity change, appetite change and unexpected weight change. HENT: Negative for congestion and rhinorrhea. Eyes: Negative for visual disturbance. Respiratory: Negative for chest tightness, shortness of breath and wheezing. Cardiovascular: Negative for palpitations and leg swelling. Gastrointestinal: Negative for abdominal pain, diarrhea, constipation, abdominal distention and analbleeding. Genitourinary: Negative for dysuria, urgency, frequency, hematuria, flank pain, vaginal discharge, difficulty urinating. Skin: Negative for pallor. Neurological: Negative for dizziness, weakness and light-headedness. Psychiatric/Behavioral: Negative for behavioral problems. Objective: Physical Exam Filed Vitals: 07/03/12 1604 BP: 98/62 Gen: NAD, conversant CV: RRR Lungs: CTA B Pelvic: External genitalia without lesions or skin changes. Slightly decreased adiposity to left labia majora, but no other noted abnormalities. Well estrogenized vaginal epithelium, pink and moist. Cervix without lesions, slight old blood in vault. No LE edema Assessment and Plan: Ms. Albright is a 46 year old P3 perimenopausal woman who presents for follow up of perimenopausal symptoms. These are well controlled on the patch. However, intermittent left vulvar flattening and irritation is bothersome. This does not occur often and is not associated with any known triggers. Patientseems to have adequate estrogen with the patch. Unable to decifer what may be causing this as it is not occuring at this time. ?? Patient to call when she experiences a flare of her left labial issue and we will see her in 24-48 hours. Given patient business cards. ?? Reports that she is following an oncology rep for her osteoporosis ?? If bleeding persists at irregular intervals, likely perimenopausal, but consider repeat TVUS at that time to help r/o endometrial pathology. DESTINEY GOMES MD Obgyn PGY4. documented in this encounter Plan of Treatment Upcoming Encounters Date Type Specialty Care Team Description 07/13/2022 Appointment Radiology Maile Hinojosa MD [facility] DR [place]MO[place] [place], [place] [address] (Wo rk) 07/13/2022 Office Visit Endocrinology Maile Hinojosa MD [facility] ENDOCRINOLOGY [place], [place] [address] (Wo rk) documented as of this encounter Visit Diagnoses Diagnosis Perimenopause - Primary Symptomatic menopausal or female climact wendy states Vulvar discomfort Other vulvodynia documented in this encounter Care Teams Systems Tester Relationship Specialty Start Date End Date None PCP - General 03/06/12 01/05/13 None documented as of this encounter
--- OUTSIDE RECORDS SUMMARY | 2022-04-19 15:20 | XMS_ITS | Encounter Summary ---
:1965 Author Organization [facility] [address] Care Team Providers Name Role Phone Monica Garcia MD Primary Care Provider Encounter Details Date Type Department Care Team Description 12/07/2010 Hospital Encounter Obstetrics and Bobby Diamond, Gynecology at [facility] MD [facility] [place] [address] OBSTETRICS & [phone] GYNECOLOGY [place], [place] [address] (Wo rk) Social History Tobacco [...] 0 08/24/2010 07/25/2011 mcg nasal spray Evening [place] Oil 500 0 08/24/2010 01/24/2015 mg Cap [...] Hinojosa MD [facility] ENDOCR[facility]OLOGY [place], [place] [address] (Wo rk) 07/13/2022 Office Visit Endocrinology Maile Hinojosa MD [facility] ENDOCRINOLOGY [place], [place] [address] (Wo rk) documented as of this encounter Visit Diagnoses Not on filedocumented in this encounter Care Teams Heel Packer Relationship Specialty Start Date End Date Monica Garcia MD PCP - General 07/18/10 03/05/12 [address] [place] [address] documented as of this encounter
--- OUTSIDE RECORDS SUMMARY | 2022-04-19 15:20 | XMS_ITS | Encounter Summary ---
:1965 Author Organization [facility] [address] Care Team Providers Name Role Phone None Primary Care Provider Unavailable Encounter Details Date Type Department Care Team Description 07/08/2012 Hospital Encounter Ultrasound at [facility] [place] [address] Social History Tobacco Use Types Packs/Day [...] HCL (SERTRALINE 0 0 03/31/2013 ORAL) Evening [place] Oil 500 0 08/24/2010 01/24/2015 mg Cap [...] Description 07/13/2022 Appointment Radiology Maile Hinojosa MD [facility] ENDOCRINOLOGY [place], [place] [address] (Wo rk) 07/13/2022 Office Visit Endocrinology Maile Hinojosa MD [facility] ENDOCRINOLOGY [place], [place] [address] (Wo rk) documented as of [...] 05 :16 pm) Patient Info ID: ? [id number] ? : [birth year] (46 yrs) Name: ? JESSICA Charles TRESA ? Visit Date: 07/08/2012 03:45 pm Performed By Performed By: ?Shane Burciaga RDMS Attending: ? Noman GILL, Rose Narayan Referred By: ? FERDINAND MICHAEL MD Service(s) Provided URETRO - Retroperitoneal Complete - 002 [id number] ? [id number] Indications History of kidney stones Right Kidney [...] participat e in the care of JESSICA ALBRIGHT. Please do not hesitate to call if you have any questions. ? Rose Tineo MD Electronically Signed Final Report ?? 05:16 pm Procedure Note Rose Tineo MD - 07/08/2012Formattin g of this note might be different from the original. Renal (Signed Final 07/08/2012 05:16 pm) Patient Info ID: [id number] : [birth year] (46 yrs ) Name: JESSICA ALBRIGHT Visit Date: 07/08 03:45 pm Performed By Performed By: Genie Burciaga RDMS Attending: Rose Tineo MD Referred By: FERDINAND MICHAEL MD Service(s) Provided URETRO - Retroperitoneal Complete - [phone] Indications History of kidney stones Right Kidney [...] participat e in the care of JESSICA ALBRIGHT. Please do not hesitate to call if you have any questions. Rose Tineo MD Electronically Signed Final Report 07/08 05:16 pm Ferdinand Michael Jr., MD IM US GEN ORDERABLES documented in this encounter Visit Diagnoses Diagnosis Nephrolithiasis Calculus of kidney documented in this encounter Care Teams Freight Car Cleaner Relationship Specialty Start Date End Date None PCP - General 03/06/12 01/05/13 None documented as of this encounter
--- OUTSIDE RECORDS SUMMARY | 2022-04-19 15:20 | XMS_ITS | Encounter Summary ---
:1965 Author Organization [facility] [place] [address] Care Team Providers Name Role Phone Monica Garcia MD Primary Care Provider Encounter Details Date Type Department Care Team Description 08/09/2011 Hospital Encounter Ultrasound at [facility] [place] [address] Social History Tobacco Use Types Packs/Day [...] HCL (SERTRALINE 0 0 03/31/2013 ORAL) Evening [place] Oil 500 0 08/24/2010 01/24/2015 mg Cap [...] [facility] ER DR MARMOLEJO [place], [place] [address] (Wo rk) 07/13/2022 Office Visit Endocrinology Maile Hinojosa MD [facility] ER ENDOCRINOLOGY [place], [place] [address] (Wo rk) documented as of this encounter Visit Diagnoses Not on filedocumented in this encounter Care Teams Repair Service Dispatcher Relationship Specialty Start Date End Date Monica Garcia MD PCP - General 07/18/10 03/05/12 [address] [place] [address] documented as of this encounter
--- OUTSIDE RECORDS SUMMARY | 2022-04-19 15:20 | XMS_ITS | Encounter Summary ---
:1965 Author Organization [facility] [place] [address] Care Team Providers Name Role Phone Monica Garcia MD Primary Care Provider Encounter Details Date Type Department Care Team Description 12/12/2010 External Results Obstetrics and Bobby Diamond, Gynecology at [facility] [place] [address] OBSTETRICS & [phone] GYNECOLOGY [place], [place] [address] (Wo rk) Social History Tobacco [...] [facility] ER [address] [place] [address] (Wo rk) 07/13/2022 Office Visit Endocrinology Maile Hinojosa MD [facility] ER ENDOCRINOLOGY [place], [place] [address] (Wo rk) documented as of this encounter Procedures Procedure Name Priority Date/Time Associated Diagnosis Comme nts LAB SCAN Routine 12/08/2010 documented in this encounter Results LAB SCAN (12/08/2010) Narrative This result has an attachment that is no t available. Bobby Diamond MD MEDIA MGR SCAN EXT ORDR/RSLT documented in this encounter Visit Diagnoses Not on filedocumented in this encounter Care Teams Bottom Finisher Relationship Specialty Start Date End Date Monica Garcia MD PCP - General 07/18/10 03/05/12 [address] [place] [address] documented as of this encounter
--- OUTSIDE RECORDS SUMMARY | 2022-04-19 15:20 | XMS_ITS | Encounter Summary ---
:1965 Author Organization [place] [address] Care Team Providers Name Role Phone Monica Garcia MD Primary Care Provider Encounter Details Date Type Department Care Team Description 01/09/2013 Orders Only Endocrinology at [facility] C Jennifer Romero, Osteoporosis (Primary [facility] Dx) [place] [address] CENTER [phone] ENDOCRINOLOGY DEPT [place], [place] [address] Social History Tobacco Use Types [...] MD [facility] ER ENDOCRINOLOGY [place], [place] [address] (Wo rk) 07/13/2022 Office Visit Endocrinology Maile Hinojosa MD [facility] ENDOCRINOLOGY [place], [place] [address] (Wo rk) documented as of this encounter Visit Diagnoses Diagnosis Osteoporosis - Primary Osteoporosis, unspecified documented in this encounter Care Teams Manager Fixed Income Relationship Specialty Start Date End Date Monica Garcia MD PCP - General 01/06/13 02/27/17 [address] [place] [address] documented as of this encounter
--- OUTSIDE RECORDS SUMMARY | 2022-04-19 15:20 | XMS_ITS | Encounter Summary ---
:1965 Author Organization [place] [address] Care Team Providers Name Role Phone None Primary Care Provider Unavailable Reason for Visit Reason Comments Nephrolithiasis Encounter Details Date Type Department Care Team Description 07/08/2012 Follow-Up Urology at [facility] CL[facility]IC, DR ESPINO Nephrolithiasis (Primary [facility] Ferdinand Michael Jr., MD [facility] [place] [address] Dx) [place] [id number] Social History Tobacco Use Types Packs/Day Years [...] Gtz is a 46 y.o. female. HPI MsJoseph Gtz returns for follow up regarding a [...] Maile Hinojosa MD [facility] ENDOCRINOLOGY [place], [place] [address] (Wo rk) 07/13/2022 Office Visit Endocrinology Maile Hinojosa MD [facility] ENDOCRINOLOGY [place], [place] [address] (Wo rk) documented as of this encounter Results US retroperitoneal complete (01/06/2013 2:23 PM EDT) Anatomical Region Laterality Modality Abdomen Ultrasound Specimen (Source) Anatomical Collection Method Collection Time Re ceived Time Location / / Volume Laterality 01/06/2013 2:23 PM EDT Narrative 01/06/2013 2:34 PM EDT ? Renal ? (Signed Final 01/06/2013 02 :33 pm) Patient Info ID: ?[id number] ?: ??[birth year] (47 yrs) Name: ?JESSICA Melvin GTZ ?Visit Date: 01/06/2013 02:22 pm Performed By Performed By: ?Hernan GARNER, ??Rozina christianson Attending: ? Veronica GILL, Weston Maloney Referred By: ? FERDINAND MICHAEL MD Service(s) Provided URETRO - Retroperitoneal Complete - 002 [id number] ? [id number] Indications History of kidney stones Comparison Ultrasound: [...] Final 01/06/2013 02:33 pm) Patient Info ID: [id number] : [birth year] (47 yrs ) Name: JESSICA GTZ Visit Date: 01/06 02:22 pm Performed By Performed By: Xiomy Becerra RDMS Attending: Weston Martin MD Referred By: FERDINAND MICHAEL MD Service(s) Provided URETRO - Retroperitoneal Complete - 002 [id number] Indications History of kidney stones Comparison Ultrasound: [...] kidney documented in this encounter Care Teams Aerotriangulation Specialist Relationship Specialty Start Date End Date None PCP - General 03/06/12 01/05/13 None documented as of this encounter
--- OUTSIDE RECORDS SUMMARY | 2022-04-19 15:20 | XMS_ITS | Encounter Summary ---
:1965 Author Organization [facility] [place] [address] Care Team Providers Name Role Phone None Primary Care Provider Unavailable Reason for Visit Reason Comments Follow-up f/u ovarian cyst/ annual Encounter Details Date Type Department Care Team Description 03/06/2012 Follow-Up Obstetrics and CLINIC, DR ESPINO Pap smear for cervical cancer screening (Primary Dx); Gynecology at [facility] Ramses Birch MD [facility] OBSTETRICS & [place] [address] Perimenopause; [place] [address] Social History Tobacco Use Types Packs/Day [...] Ramses Birch - 03/06/2012 4:12 PM EDT CHEMISTRY QUALITY CONTROL ANALYST Comprehensive History and Physical Exam Stacy Albright [id number] 1965 Service Date: 03/06/2012 ID/CC: 46 y.o. [...] Raynaud's disease ??? Migraines ??? Perimenopause Past JOINT RUNNER History: Pregnancies: OB History Grav Para Term [...] Surgical History Procedure Date ??? Created by [email or web address].([email or web address]) Procedure Date: 01/16/2008 ??? Lithotripsy Family History: [...] ??? SERTRALINE HCL (SERTRALINE ORAL) ??? Evening [place] Oil 500 mg Cap ??? albuterol (ACCUNEB) [...] lb) Please see PE section below for non-voip network engineer exam Female manager lvn present for breast and pelvic exam Breasts: [...] eD - please see PE section for non-voip network engineer exam Subjective: Patient ID: Stacy Albright is [...] Hinojosa MD [facility] [address] [place] [place] [address] (Rahul ascencio) 07/13/2022 Office Visit Endocrinology Maile Hinojosa MD [facility] DR [place]EL [place] [address] (Rahul ascencio) documented as of this [...] PM 2 5:00 EDT PM EDT Narrative CERNER MONICAIUM - 03/06/2012 5:00 PM E DT Specimen requisition ordered. ??Separate Pathology report to follow Aylin Masters MD PATHOLOGY/CYTOLOGY ORDERABLE S Performing Organization Address City/State/ZIP Code Phon e Number [place] [id number] [facility] documented in this encounter Visit Diagnoses Diagnosis Pap smear for cervical cancer screening - Primary Screening for malignant neoplasm of the cervix Perimenopause Symptomatic menopausal or female climact [place] Osteoporosis Osteoporosis, unspecified documented in this encounter Care Teams Retail Merchandiser Relationship Specialty Start Date End Date None PCP - General 03/06/12 01/05/13 None documented as of this encounter
--- OUTSIDE RECORDS SUMMARY | 2022-04-19 15:20 | XMS_ITS | Encounter Summary ---
:1965 Author Organization [facility] [place] [address] Care Team Providers Name Role Phone None Primary Care Provider Unavailable Reason for Visit Reason Comments Osteoporosis Encounter Details Date Type Department Care Team Description 03/25/2012 Office Visit Endocrinology at [facility] Cuate Pearl MD Osteoporosis (Primary [facility] [place] [facility] Dx) [facility] [place] [address] ENDOCRINOLOGY [phone] [place], [place] [address] Social History Tobacco Use [...] 46 y.o. year old female evaluated by BOOM STICK WORKER and found to have osteoporosis on Dexa [...] total Calcium (Dietary+supplement) of 1200-1500mg and vitamin [id number] IU daily.Patient should not exceed 1500 mg [...] with Dr Isabel Romero MD Endocrinology Fellow [phone] documented in this encounter Plan of Treatment Upcoming Encounters Date Type Specialty Care Team Description 07/13/2022 Appointment Radiology Maile Hinojosa MD [facility] ENDOCRINOLOGY [place], [place] [address] (Wo rk) 07/13/2022 Office Visit Endocrinology Maile Hinojosa MD [facility] ENDOCRINOLOGY [place], [place] [address] (Wo rk) documented as [...] encounter Results Calcium (03/25/2012 2:53 PM EDT) athologist Signature Calcium 9.0 8.5 - 10.5 CERNER mg/dL MILLENNIUM Specimen Anatomical Collection Method Collection Time Receive d Time (Source) Location / / Volume Laterality Blood specimen 03/25/2012 2:53 PM 012 3:18 (specimen) EDT PM EDT Resulting Agency Comment Spec In Lab Cuate Hall MD CHEMISTRY ORDERABLES Performing Organization Address City/[facility] [place] [address] CERNER MILLENNIUM PTH (03/25/2012 [...] Address City/State/ZIP [place] [address] CERNER MILLENNIUM VIT D Total Evaluation (03/25/2012 2:53 PM EDT) P athologist Signature 25-OH Vit D 46 30 [...] of 10/02/2011 the Vitamin D Total, 25 [place] xy assays are being analyzed by the [facility] Chemistry Laboratory. ??There is NO CHANGE in units. ??Please contact the chemistry laboratory at [phone] with ques tions. Specimen Anatomical Collection Method Collection Time Receive d Time (Source) Location / / Volume Laterality Blood specimen 03/25/2012 2:53 PM 012 3:18 (specimen) EDT PM EDT Resulting Agency Comment Spec In Lab Cuate Hall MD CHEMISTRY ORDERABLES Performing Organization Address City/[facility]/ZIP Code [place] [address] CERNER MILLENNIUM documented in this encounter Visit Diagnoses Diagnosis Osteoporosis - Primary Osteoporosis, unspecified documented in this encounter Care Teams Consultant Education Relationship Specialty Start Date End Date None PCP - General 03/06/12 01/05/13 None documented as of this encounter
--- OUTSIDE RECORDS SUMMARY | 2022-04-19 15:20 | XMS_ITS | Encounter Summary ---
:1965 Author Organization [facility] [place] [address] Care Team Providers Name Role Phone Monica Garcia MD Primary Care Provider Reason for Visit Reason Comments Nephrolithiasis Encounter Details Date Type Department Care Team Description 07/25/2011 Follow-Up Urology at [facility] Ferdinand Michael Nephrolithiasis ([facility] , Dx) [place] [address] UROLOGY DEPT. [phone] [place], [place] [address] Social History Tobacco Use Types [...] Description 07/13/2022 Appointment Radiology Maile Hinojosa MD [facility] ER ENDOCRINOLOGY [place], [place] [address] (Wo rk) 07/13/2022 Office Visit Endocrinology Maile Hinojosa MD [facility] ENDOCRINOLOGY [place], [place] [address] (Wo rk) documented as of [...] Clean Catch Urine (07/25/2011 11:11 AM EST) [facility] Method Time Signature Urine Culture CERNER ? Patient Name: JESSICA GTZ ? Ordered By: FERDINAND MICHAEL JR [facility] ? MR#: [id number] ?LOC: ??5B ? /Sex: ??1965 (45 years), [...] Organization Address City/State/[place] [address] [facility] documented in this encounter Visit Diagnoses Diagnosis Nephrolithiasis - Primary Calculus of kidney Nephrolithiasis Calculus of kidney documented in this encounter Care Teams Technical Staff Assistant Relationship Specialty Start Date End Date Monica Garcia MD PCP - General 07/18/10 03/05/12 [address] [place] [address] documented as of this encounter
--- OUTSIDE RECORDS SUMMARY | 2022-04-19 15:20 | XMS_ITS | Encounter Summary ---
:1965 Author Organization [facility] [place] [address] Care Team Providers Name Role Phone Monica Garcia MD Primary Care Provider Encounter Details Date Type Department Care Team Description 01/08/2012 Hospital Encounter Ultrasound at [facility] [place] [address] Social History Tobacco Use Types Packs/Day [...] HCL (SERTRALINE 0 0 03/31/2013 ORAL) Evening [place] Oil 500 0 08/24/2010 01/24/2015 mg Cap [...] [facility] ENDOCRINOLOGY [place], [place] [address] (Wo rk) 07/13/2022 Office Visit Endocrinology Maile Hinojosa MD [facility] [place] [address] (Wo rk) documented as of this [...] 04 :58 pm) Patient Info ID: ? [id number] ? : [birth year] (46 yrs) Name: ? JESSICA GTZ ? Visit Date: 01/08/2012 04:29 pm Performed By Performed By: ?Akash Muse RDMS Attending: ? Veronica GILL, Weston Maloney Referred By: ? FERDINAND MICHAEL MD Service(s) Provided URETRO - Retroperitoneal Complete - 002 [id number] ? [id number] Indications Nephrolithiasis Right Kidney Size (cm) ?L: [...] Final 01/08/2012 04:58 pm) Patient Info ID: [id number] : [birth year] (46 yrs ) Name: JESSICA GTZ Visit Date: 01/07 04:29 pm Performed By Performed By: Akash Muse RDMS Attending: Weston Martin MD. Referred By: FERDINAND MICHAEL MD Service(s) Provided URETRO - Retroperitoneal Complete - 002 [id number] Indications Nephrolithiasis Right Kidney Size (cm) L: [...] kidney documented in this encounter Care Teams Paint And Table Edger Relationship Specialty Start Date End Date Monica Garcia MD PCP - General 07/18/10 03/05/12 [address] [place] [address] documented as of this encounter
--- OUTSIDE RECORDS SUMMARY | 2022-04-19 15:20 | XMS_ITS | Encounter Summary ---
:1965 Author Organization [facility] [place] [address] Care Team Providers Name Role Phone Monica Garcia MD Primary Care Provider Encounter Details Date Type Department Care Team Description 02/23/2014 Hospital Encounter Ultrasound [place] [facility] [place] [address] Social History Tobacco Use Types Packs/Day [...] inhaler daily as needed (winter time). Evening [place] Oil 500 0 08/24/2010 01/24/2015 mg Cap [...] Maile Hinojosa MD [facility] ENDOCRINOLOGY [place], [place] [address] (Wo rk) 07/13/2022 Office Visit Endocrinology Maile Hinojosa MD [facility] DR MARMOLE[address] [place], [place] [address] (Wo rk) documented as of this encounter [...] Final 02/23/2014 05:20 pm) Patient Info ID: ?[id number] ?: [birth year] (48 yrs) Name: ?JESSICA GTZ ?Visit Date: 02/23/2014 04:19 pm Performed By Performed By: ?Mariann Leonard RDMS Associate: ? Jabari GILL, Bobby Alvarez Attending: ? Luna GILL, Genie Ruiz Referred By: ? FERDINAND MICHAEL MD Service(s) Provided URETRO - Retroperitoneal Complete - 002 [id number] ? [id number] Indications Hx of kidney stones Comparison Renal/bladder [...] Final 02/23/2014 05:20 pm) Patient Info ID: [id number] : [birth year] (48 yrs ) Name: JESSICA GTZ Visit Date: 02/23 04:19 pm Performed By Performed By: Mariann Leonard RDMS Associate: Bobby Barboza MD Attending: Genie Carrasco MD Referred By: FERDINAND MICHAEL MD Service(s) Provided URETRO - Retroperitoneal Complete - 002 [id number] Indications Hx of kidney stones Comparison Renal/bladder [...] kidney documented in this encounter Care Teams Crimp Setter Relationship Specialty Start Date End Date Monica Garcia MD PCP - General 01/06/13 02/27/17 [address] [place] [address] documented as of this encounter
--- OUTSIDE RECORDS SUMMARY | 2022-04-19 15:20 | XMS_ITS | Encounter Summary ---
:1965 Author Organization [facility] [place] [address] Care Team Providers Name Role Phone Monica Garcia MD Primary Care Provider Encounter Details Date Type Department Care Team Description 12/07/2010 Office Visit Lab [address] [place] [address] Social History Tobacco Use Types Packs/Day [...] Hinojosa MD [facility] [address] [place], [place] [address] (Wo rk) 07/13/2022 Office Visit Endocrinology Maile Hinojosa MD [facility] [address] [place], [place] [address] (Wo rk) documented as of this encounter Visit Diagnoses Not on filedocumented in this encounter Care Teams Program Strategist Relationship Specialty Start Date End Date Monica Garcia MD PCP - General 07/18/10 03/05/12 [address] [place] [address] documented as of this encounter
--- OUTSIDE RECORDS SUMMARY | 2022-04-19 15:20 | XMS_ITS | Encounter Summary ---
:1965 Author Organization [facility] [place] [address] Care Team Providers Name Role Phone Monica Garcia MD Primary Care Provider Reason for Visit Reason Comments Follow-up US Menstrual Problem 5 week period last month cur rently on period today Encounter Details Date Type Department Care Team Description 08/09/2011 Follow-Up Obstetrics and Bobby Diamond Ovarian cyst (Primary Dx); Gynecology at [facility] MD Victor Manuel Abnormal bleeding in menstrual cycle [facility] [address] [place] [address] OBSTETRICS & [phone] GYNECOLOGY [place], [place] [address] (Wo rk) Social History Tobacco [...] Sign Reading Time Taken Comments Blood Pressure 110/62 08/09/2011 3:12 PM EST Pulse - - Temperature - - Respiratory Rate - - Oxygen Saturation - - Inhaled Oxygen Concentration - - Weight 68 kg (150 lb) 08/09/2011 3:12 PM EST Height 172.7 cm (5' 8) 08/09/2011 3:12 PM EST Body Mass Index 22.81 08/09/2011 3:12 PM EST documented in this encounter Patient Instructions Patient InstructionsBobby Diamond MD - 08/09/2011 5:32 PM EST At this point ovarian cyst seems likely to be functional. U/S in 2 months will verify that it has regressed. Patient is very hesitant to stop any hormone replacement due to mood issues when off hormones. It seems that she is perimenopausal and may still be ovulating due to functional cyst. Because of this, she will switch from the Combipatch to OCPs, skipping the placebos in order to better control bleeding. 1. Schedule F/U u/s in 2 months to confirm that there is no ovarian cyst. 2. Switch patient from Combipatch to oral contraceptive Ovcon. She will skip placebo week. She will see either Dr. Hill or Dr. Serna after her TVUS. documented in this encounter Progress Notes Bobby Diamond MD - 08/09/2011 11:46 AM EST Subjective: Patient ID: Jessica Gtz is a 45 y.o. female. CC: Ovarian cyst U/S f/u and menopausal symptoms. HPI An abdominal CT performed secondary to kidney stones showed an ovarian cyst which warranted an ultrasound, which was performed yesterday. Patient also reports 5 weeks of bleeding in May/June. She reports that it was black at times and heavier than normal. She needed to change her pads 2-3 times per day. Prior to this bleeding, her cycles had become irregular and she bled for up to 1.5 weeks. She attributes some change to the Combipatch, she had been switched from the estrogen only patch.She takes this for menopausal symptoms including hair loss, dryness, mood and hot flashes. Her symptoms have improved since Combipatch. She also takes Evening Saltese everyday to help with cramping and evening out her periods. 07/31/2011 encounter Luis Michael Jr., MD Signed Luis Michael Jr., MD 07/31/11 06:[address] reviewed, no stones seen. Left ovarian or paraovarian cyst noted. I recommended that she see herGYN for further discussion and/or eval. She understands and will plan to call [facility] tomorrow. No urologic intervention needed at this time. Impression Ultrasound - Transvaginal - Summary The uterus and adnexa are visualized. The endometrial echo complex measures 4.3 mm. Michelle Hill MD Electronically Signed Final Report 08/09/2011 03:02 pm Review of Systems Constitutional: Positive for unexpected weight change. Eyes: Negative. Gastrointestinal: Positive for constipation. Genitourinary: Negative. Skin: Negative. Neurological: Positive for headaches. Psychiatric/Behavioral: Negative. Past Medical History Diagnosis Date ??? Asthma ??? Raynaud's disease ??? History of nephrolithiasis ??? Migraines ??? Abnormal glandular Papanicolaou smear of cervix age 15 ??? Vaginal infection PID at 15 Past Surgical History Procedure Date ??? Created by interface E.S.W.LJoseph(Profound) Procedure Date: 01/16/2008 ??? Lithotripsy Family History Problem Relation Age of Onset ??? Osteoporosis Mother ??? Breast Cancer Paternal Grandmother 45 ??? Colon Cancer Neg Hx History Social History ??? Marital Status: Spouse [...] History Narrative ??? No narrative on file Period Duration (Days): 1.5 weeks Period Pattern: Irregular Dysmenorrhea: Mild Dysmenorrhea Symptoms: Cramping OB History Grav Para Term Abortions TAB SAB Ect Mult Living 4 3 3 0 1 3 Objective: Physical Examdeferred Assessment and Plan: At this point ovarian cyst seems likely to be functional. U/S in 2 months will verify that it has regressed. Patient is very hesitant to stop any hormone replacement due to mood issues when off hormones. It seems that she is perimenopausal and may still be ovulating due to functional cyst. Because of this, she will switch from the Combipatch to OCPs, skipping the placebos in order to better control bleeding. 1. Schedule F/U u/s in 2 months to confirm that there is no ovarian cyst. 2. Switch patient from Combipatch to oral contraceptive Ovcon. She will skip placebo week. She will see either Dr. Hill or Dr. Serna after her TVUS. Tottal time was 25 minutes with 15 minutes spent in direct face to face contact. documented in this encounter Plan of Treatment Upcoming Encounters Date Type Specialty Care Team Description 07/13/2022 Appointment Radiology Maile Hinojosa MD [facility] [address] [place], [place] [address] (Wo rk) 07/13/2022 Office Visit Endocrinology Maile Hinojosa MD [facility] [address] [place] [address] (Wo rk) documented as of this encounter Results US Transvaginal non OB (10/04/2011 4:01 PM EST) Anatomical Region Laterality Modality Ultrasound Specimen (Source) Anatomical Collection Method Collection Time Re ceived Time Location / / Volume Laterality 10/04/2011 4:01 PM EST Narrative 10/04/2011 4:09 PM EST ?Gynecological Report ? (Signed Final 10/04/2011 04 :08 pm) Patient Info ID: ? [id number] ? : ??[birth year] (46 yrs) Name: ? JESSICA WOODON ? Visit Date: 10/04/2011 03:50 pm Performed By Performed By: ?Lay Nichols RDMS Attending: ? Marcus Rush, Mihcelle Referred By: ? BOBBY Rush Service(s) Provided [facility] - Ultrasound - Transvaginal - [phone] ? [id number] Indications Reason for exam and clinical history: [...] Final 10/04/2011 04:08 pm) Patient Info ID: [id number] : [birth year] (46 yrs ) Name: JESSICA GTZ Visit Date: 10/04 03:50 pm Performed By Performed By: Lay Nichols RDMS Attending: Marcus Hill MD, Michelle Referred By: BOBBY DIAMOND MD Service(s) Provided [facility] - Ultrasound - Transvaginal - [phone] Indications Reason for exam and clinical history: [...] Signed Final Report 10/04 04:08 pm Bobby Diamond MD IMG US PELVIC ORDERABLES documented in this encounter Visit Diagnoses Diagnosis Ovarian cyst - Primary Other and unspecified ovarian cyst Abnormal bleeding in menstrual cycle Unspecified disorder of menstruation and other abnormal bleeding from female genital tract Ovarian cyst Other and unspecified ovarian cyst documented in this encounter Care Teams Centrifugal Chiller Technician Relationship Specialty Start Date End Date Monica Garcia MD PCP - General 07/18/10 03/05/12 [address] [place] [address] documented as of this encounter
--- OUTSIDE RECORDS SUMMARY | 2022-04-19 15:21 | XMS_ITS | Encounter Summary ---
:1965 Author Organization [facility] [place] [address] Care Team Providers Name Role Phone Monica Garcia MD Primary Care Provider Encounter Details Date Type Department Care Team Description 07/25/2010 Procedure visit [place] [address] Social History Tobacco Use Types Packs/Day Years Used Date Never Assessed Sex Assigned at Date Recorded Female 01/29/2022 12:45 PM EDT documented as of this encounter Plan of Treatment Upcoming Encounters Date Type Specialty Care Team Description 07/13/2022 Appointment Radiology Maile Hinojosa MD [facility] ENDOCRINOLOGY [place], [place] [address] (Wo rk) 07/13/2022 Office Visit Endocrinology Maile Hinojosa MD [facility] ENDOCRINOLOGY [place], [place] [address] (Wo rk) documented as of this encounter Visit Diagnoses Not on filedocumented in this encounter Care Teams Perfect Bind Machine Operator Relationship Specialty Start Date End Date Monica Garcia MD PCP - General 07/18/10 03/05/12 [address] [place] [address] documented as of this encounter
--- OUTSIDE RECORDS SUMMARY | 2022-04-19 15:21 | XMS_ITS | Encounter Summary ---
:1965 Author Organization [facility] [place] [address] Care Team Providers Name Role Phone Monica Garcia MD Primary Care Provider Encounter Details Date Type Department Care Team Description 07/26/2010 Follow-Up Dermatology Sarah Kidd MD [facility] [place] [address] [facility] [phone] [place] [address] (Wo rk) Social History Tobacco Use Types Packs/Day Years Used Date Never Assessed Sex Assigned at Date Recorded Female 01/29/2022 12:45 PM EDT documented as of this encounter Plan of Treatment Upcoming Encounters Date Type Specialty Care Team Description 07/13/2022 Appointment Radiology Maile Hinojosa MD [facility] ENDOCRINOLOGY [place], [place] [address] (Wo rk) 07/13/2022 Office Visit Endocrinology Maile Hinojosa MD [facility] ENDOCRINOLOGY [place], [place] [address] (Wo rk) documented as of this encounter Visit Diagnoses Not on filedocumented in this encounter Care Teams Multimedia Designer Relationship Specialty Start Date End Date Monica Garcia MD PCP - General 07/18/10 03/05/12 [address] [place] [address] documented as of this encounter
--- OUTSIDE RECORDS SUMMARY | 2022-04-19 15:21 | XMS_ITS | Encounter Summary ---
:1965 Author Organization [facility] Address [facility] [address] [place] [address] Care Team Providers Name Role Phone Monica Garcia MD Primary Care Provider Reason for Visit Reason Comments Gynecologic Exam Encounter Details Date Type Department Care Team Description 12/07/2010 Office Visit Obstetrics and Bobby Diamond Routine check-up; Gynecology at [facility] MD Victor Manuel Perimenopause [facility] [place] [address] OBSTETRICS & [phone] GYNECOLOGY [place], [place] [address] (Wo rk) Social History Tobacco [...] [place]-menopausal female who presents for her annual OPERATOR HELPER exam. She continues to use Climara-Pro and [...] Description 07/13/2022 Appointment Radiology Maile Hinojosa MD [facility] ENDOCRINOLOGY [place], [place] [address] (Wo rk) 07/13/2022 Office Visit Endocrinology Maile Hinojosa MD [facility] ENDOCRINOLOGY [place], [place] [address] (Wo rk) documented as of this encounter Visit Diagnoses Diagnosis Routine check-up Routine general medical examination at a health care facility Perimenopause Symptomatic menopausal or female climact [place] documented in this encounter Care Teams Coal Hauler Relationship Specialty Start Date End Date Monica Garcia MD PCP - General 07/18/10 03/05/12 [address] [place] [address] documented as of this encounter
--- OUTSIDE RECORDS SUMMARY | 2022-04-19 15:21 | XMS_ITS | Encounter Summary ---
:1965 [place] [address] Care Team Providers Name Role Phone Monica Garcia MD Primary Care Provider Encounter Details Date Type Department Care Team Description 08/24/2010 Hospital Encounter Same Day Program at Ferdinand Michael Jr., [facility] [place] [address] [place] [address] [phone] (Wo rk) Social History Tobacco Use Types Packs/Day Years Used Date Never Assessed Sex Assigned at Date Recorded Female 01/29/2022 12:45 PM EDT documented as of this encounter Medications at Time of Discharge Medication Sig Dispensed Refills Start Date End Date albuterol (ACCUNEB) 0.63 0 08/24/2010 mg/3 mL nebulizer solution CIS Free Text Med - 0 08/24/201012/07 Multiple Vitamin fexofenadine (JEREL) 60 0 08/24/2010 12/07/2010 mg tablet SERTRALINE HCL (SERTRALINE 0 0 03/31/2013 ORAL) azelastine (ASTELIN) 137 0 08/24/2010 07/25/2011 mcg nasal spray Evening Lamar Oil 500 mg 0 08/24/20 10 01/24/2015 Cap predniSONE (DELTASONE) 20 0 08/24/2010 12/07/2010 mg tablet FOLIC ACID/VITAMIN B COMP 0 08/24/2010 04/10/2016 W-C (B-COMPLEX WITH VITAMIN C ORAL) SUMATRIPTAN SUCCINATE 0 08/24/201001/2016 (IMITREX ORAL) tacrolimus (PROTOPIC) 0.1 % 1 Appl(s) Top 0 08/2402/12/2022 ointment Twice daily ERGOCALCIFEROL, VITAMIN D2, 0 08/24/20 10 04/10/2016 (VITAMIN D ORAL) MELATONIN ORAL 0 08/24/2010 12/07/2010 KETOCONAZOLE (NIZORAL TOP) Apply topically. 0 02/12/2022 amoxicillin (AMOXIL) 875 mg 0 08/24/20 10 12/07/2010 tablet BUDESONIDE/FORMOTEROL 0 08/24/2010 FUMARATE (SYMBICORT INHL) ciprofloxacin (CIPRO) 500 500 MG = 1 0 08/24/2010 12/07/2010 mg tablet Tablet(s), PO, Q12H documented as of this encounter Plan of Treatment Upcoming Encounters Date Type Specialty Care Team Description 07/13/2022 Appointment Radiology Maile Hinojosa MD [facility] ENDOCRINOLOGY [place], [place] [address] (Wo rk) 07/13/2022 Office Visit Endocrinology Maile Hinojosa MD [facility] ENDOCRINOLOGY [place], [place] [address] (Wo rk) documented as of this encounter Procedures Procedure Name Priority Date/Time Associated Diagnosis Comme nts SURGICAL PATHOLOGY Routine 08/24/2010 6:40 PM Res ults for this REPORT EST procedure are i n the results section. documented in this encounter Results PATHOLOGY SURGICAL PATHOLOGY FINAL REPORT (08/24/2010 6:40 PM EST) Component Value Ref Test Analysis Performed At [facility] Range Method Time Signature Surgical CERNER Pathology ? [facility] Report ? Provider: ?? FERDINAND MICHAEL JR ?? Pt. Name: ?? JESSICA GTZ ? Acc #: ?[id number] ?Pt. MRN: ?[id number] ? Col Date: ?? 08/24/2010 ?/Sex: ?1 10/14/1964,(45 ? years),Female ? Rec Date: ?? 08/24/2010 ?LOC: ?SDP ? SURGICAL PATHOLOGY ? ---Pathologic Diagnosis--- ? Calculi, renal (see Comment). ? CR-0 ? 09/18/10 ? BJM ? 09/19/10 Verified by: ? Eloy GILL, Jose Antonio Rojas ? Pathologist ? (Electronic Si gnature) ? The attending pathologist whose signature appears o n this report has ? reviewed all diagnostic slides and has edited the andrey ss and/or ? microscopic portion of the report in rendering the fi nal pathologic ? diagnosis. ? ---Comment--- ? The Report of Stone A nalysis, order # [id number], has been received from the ? [facility], [address], [place], [place] ??[address]. ? For the full text of the [place] report please refer to Non-DH Documentation ? Pathology in the Clinical Information System (CIS). ? ---Microscopic Description--- ? Slides reviewed, microscopic description not recorded . ? ---Gross Description--- ? Labeled/Fixative: ? Left renal stone, fresh. ? Quantity/Size: ?Two, 0.1 cm and 0.3 cm. ? Tissue Description: ?? Irregular, brown calculi. ? Sections/Process: ? Submitted for chemical analys is. ??aje/SNS ? ---Clinical Information--- ? Specimen Submitted: ? A - Left renal stone, left ? Clinical History: ? Left renal stone ? Clinical Diagnosis: ? Same Specimen (Source) Anatomical Collection Method Collection Time Re ceived Time Location / / Volume Laterality 08/24/2010 6:40 PM EST Ferdinand Michael Jr., MD PATHOLOGY/CYTOLOGY ORDERABLE S Performing Organization Address City/State/ZIP Code Phon e Number [address] [facility] documented in this encounter Visit Diagnoses Not on filedocumented in this encounter Care Teams Filter Press Supervisor Relationship Specialty Start Date End Date Monica Garcia MD PCP - General 07/18/10 03/05/12 [address] [place] [address] documented as of this encounter
--- OUTSIDE RECORDS SUMMARY | 2022-04-19 15:21 | XMS_ITS | Encounter Summary ---
:1965 Author Organization [facility] [place] [address] Care Team Providers Name Role Phone Monica Garcia MD Primary Care Provider Encounter Details Date Type Department Care Team Description 07/25/2010 Follow-Up Urology at [facility] Luis Michael Jr., MD [facility] [place] [address] UROLOGY DEPT. [phone] [place], [place] [address] (Wo rk) Social History Tobacco Use Types Packs/Day Years Used Date Never Assessed Sex Assigned at Date Recorded Female 01/29/2022 12:45 PM EDT documented as of this encounter Plan of Treatment Upcoming Encounters Date Type Specialty Care Team Description 07/13/2022 Appointment Radiology Maile Hinojosa MD [facility] [address] [place], [place] [address] (Wo rk) 07/13/2022 Office Visit Endocrinology Maile Hinojosa MD [facility] [address] [place], [place] [address] (Wo rk) documented as of this encounter Visit Diagnoses Not on filedocumented in this encounter Care Teams Dairy Cattle Farm Worker Relationship Specialty Start Date End Date Monica Garcia MD PCP - General 07/18/10 03/05/12 [address] [place] [address] documented as of this encounter
--- OUTSIDE RECORDS SUMMARY | 2022-04-19 15:22 | XMS_ITS | Encounter Summary ---
:1965 Author Organization [facility] Address [address] [place] [address] Care Team Providers Name Role Phone Unavailable Primary Care Provider Unavailable Encounter Details Date Type Department Care Team Description 07/10/2000 Before [facility] - Kristal Carroll, Converted Visit Maple conversion CO FOUNDER AND CHAIRMAN (Maple) [address] [facility] [address] [place] [address] [place], [place] [phone] (Wo rk) Social History Tobacco Use Types [...] JESSICA GTZ WRN ? Accession #: ? [id number] : ? 1965 (Age: 34) ??F ?Collect Date: ? 06/26 Location: ? [facility] ? Receive Date : ? 07/11/2000 Provider: ?KRISTAL CARROLL CO FOUNDER AND CHAIRMAN Copy to: ? Specimen/Source: ?ThinPrep Pap Test, Cervix/ Endocervix Last Menstrual Period: ? Hormonal/Contraceptive Status: ? Depo-Provera ? SPECIMEN ADEQUACY ? Satisfactory for evaluation. GENERAL CATEGORIZATION ? Within Normal Limits ? Document reviewed and electronically signed by: ? AIV Ackerman(ASCP) ? Report Date: ??07/19/2000 13:38 End of Report Specimen Performing Organization Address City/State/ZIP Code Phon e Number [facility] [address] [place] [address] SERVICES [facility] [address] [place] [address] documented in this encounter Visit Diagnoses Not on filedocumented in this encounter
--- OUTSIDE RECORDS SUMMARY | 2022-04-19 15:22 | XMS_ITS | Encounter Summary ---
:1965 Author Organization [facility] Address [address] [place] [address] Care Team Providers Name Role Phone Unknown, Provider Primary Care Provider Encounter Details Date Type Department Care Team Description 01/05/2022 Lab Requisition [facility] Outr Resulting Lab, Pathology & Laboratory Provider [facility] [address] [place], [place] [id number] Social History Tobacco Use Types Packs/Day Years [...] 15:51 EDT) Calcium, Urine 10.0 See Note [facility] Comment: mg/dL [facility]ENTER LAB[facility]ORY NOTE: SERVICES Reference range not established Calcium, Urine 24 330 (H)Comment: 100 - 300 [facility] hr Reference range mg/24hrs [facility]ENTER [facility]ORY assumes a normal SERVICES daily intake of calcium between 600 - 800 mg/day. Urine Volume 3,[address] [facility] SERVICES Urine Collection 24.0 Hours [facility] CENTER LABORATORY SERVICES Specimen Urine - 24 hour urine sample (specimen) Performing Organization Address City/State/ZIP Code Phon e Number [facility] [address] [place] [address] SERVICES documented in this encounter Visit Diagnoses Not on filedocumented in this encounter Care Teams Sewing Machines Salesperson Relationship Specialty Start Date End Date Unknown, Provider, PCP - General 07/04/15 documented as of this encounter
--- OUTSIDE RECORDS SUMMARY | 2022-04-19 15:22 | XMS_ITS | Clinical Summary ---
:1965 Author Organization [facility] Address [address] [place] [address] Care Team Providers Name Role Phone Unknown, Provider Primary Care Provider Social History Tobacco Use Types Packs/Day Years Used Date Never Assessed Sex Assigned at Date Recorded Not on file Plan of Treatment Not on file Care Teams Sr. Payroll Processor Relationship Specialty Start Date End Date Unknown, Provider, PCP - General 07/04/15
--- OUTSIDE RECORDS SUMMARY | 2022-04-19 15:22 | XMS_ITS | Encounter Summary ---
:1965 Author Organization [facility] Address [address] [place] [address] Care Team Providers Name Role Phone Unavailable Primary Care Provider Unavailable Encounter Details Date Type Department Care Team Description 07/18/2001 Before [facility] - Kristal Carroll, Converted Visit Maple conversion TRAFFIC DIRECTOR (Maple) 111 [facility] [address] [place] [address] [place], [place] [phone] (Wo rk) Social History Tobacco Use Types [...] JESSICA GTZ WRN ? Accession #: ? [id number] : ? 1965 (Age: 35) ??F ?Collect Date: ? 06/27 Location: ? [facility] ? Receive Date : ? 07/22/2001 Provider: ?KRISTAL CARROLL TRAFFIC DIRECTOR Copy to: ? Specimen/Source: ?Conventional Pap Test, Cer vix/Endocervix Last Menstrual Period: ? Hormonal/Contraceptive Status: ? Depo-Provera ? SPECIMEN ADEQUACY ? Satisfactory for evaluation. GENERAL CATEGORIZATION ? Within Normal Limits ? Document reviewed and electronically signed by: ? Suzie Fournier, SCT(ASCP) ? Report Date: ??07/25/2001 13:22 End of Report Specimen Performing Organization Address City/State/ZIP Code Phon e Number [facility] [address] [place] [address] SERVICES [facility] [address] [place] [address] documented in this encounter Visit Diagnoses Not on filedocumented in this encounter
--- OUTSIDE RECORDS SUMMARY | 2022-04-19 15:22 | XMS_ITS | Encounter Summary ---
:1965 Author Organization [facility] Address [address] [place] [address] Care Team Providers Name Role Phone Unavailable Primary Care Provider Unavailable Encounter Details Date Type Department Care Team Description 01/31/2007 Results Only [facility] - Manish Chiu MD conversion [address] [place] [address] Social History Tobacco Use Types Packs/Day Years [...] JESSICA GTZ WRN ? Accession #: ? [id number] : ? 1965 (Age: 41) ??F ?Collect Date: ? 0603/2007 Location: ? [facility] ? Receive Date : ? 02/03/2007 Provider: ?MANISH COUCH MD Copy to: ? Specimen/Source: ? ThinPrep Pap Test, Cervix/Endocervix, processed on [employer] ThinPrep Imaging System, with manual evaluation Last [...] Organization Address City/State/ZIP Code Phon e Number [facility] [address] [place] [address] SERVICES [facility] [address] [place] [address] documented in this encounter Visit Diagnoses Not on filedocumented in this encounter
--- OUTSIDE RECORDS SUMMARY | 2022-04-19 15:22 | XMS_ITS | Encounter Summary ---
:1965 Author Organization [facility] Address [address] [place] [address] Care Team Providers Name Role Phone Unavailable Primary Care Provider Unavailable Encounter Details Date Type Department Care Team Description 12/11/2004 Results Only [facility] - Tara Luong od, Kristal Estrada, MOBILE WEB APPLICATION DEVELOPER [facility] [address] [place] [phone] (Wo rk) Social History Tobacco Use Types [...] Date : ? 12/13/2004 Provider: ?KRISTAL GORDON MOBILE WEB APPLICATION DEVELOPER Copy to: ? Specimen/Source: ?Conventional Pap Test, [...] City/State/ZIP Code Phon e Number [facility] [address] [place] [address] SERVICES [facility] [address] [place] [address] documented in this encounter Visit Diagnoses Not on filedocumented in this encounter
--- OUTSIDE RECORDS SUMMARY | 2022-04-19 15:22 | XMS_ITS | Encounter Summary ---
:1965 Author Organization [facility] Address [address] [place] [address] Care Team Providers Name Role Phone Unavailable Primary Care Provider Unavailable Encounter Details Date Type Department Care Team Description 07/14/2002 Before PRISM [facility] - Kristal Carroll, Converted Visit Maple conversion SAP HANA DEVELOPER (Maple) [address] [facility] [address] [place] [address] [place], [place] [phone] (Wo rk) Social History Tobacco Use Types [...] JESSICA GTZ WRN ? Accession #: ? [id number] : ? 1965 (Age: 36) ??F ?Collect Date: ? 06/26 Location: ? [facility] ? Receive Date : ? 07/15/2002 Provider: ?KRISTAL CARROLL SAP HANA DEVELOPER Copy to: ? Specimen/Source: ?Conventional Pap [...] [facility] [address] [place] [address] SERVICES [facility] [address] [place] [address] documented in this encounter Visit Diagnoses Not on filedocumented in this encounter
--- OUTSIDE RECORDS SUMMARY | 2022-04-19 15:22 | XMS_ITS | Encounter Summary ---
:1965 Author Organization [facility] Address [address] [place] [address] Care Team Providers Name Role Phone Unknown, Provider Primary Care Provider Encounter Details Date Type Department Care Team Description 08/15/2015 Results Only [facility]- PRISM Suzie Shannon NP [phone] [facility] [address] [place], [place] [phone] (Wo rk) Social History Tobacco Use Types Packs/Day Years Used Date Never Assessed Sex Assigned at Date Recorded Not on file documented as of this encounter Plan of Treatment Not on filedocumented as of this encounter Procedures Procedure Name Priority Date/Time Associated Diagnosis Comme nts PAP TEST- RESULT Routine 08/15/2015 0:00 EST Resu lts for this ONLY procedure are i n the results section. documented in this encounter Results PAP TEST- RESULT ONLY (08/15/2015 0:00 EST) Pathology Report: CYTOPATHOLOGY REPORT [facility] Reports generated via electronic interface contain panda ginal data; SERVICES however they are lacking the format of the original re port. Caution should be taken when reading/interpreting unfo rmatted reports. Name: ? JESSICA GTZ ? Accession #: ? [id number] : ? 1965 (Age: 50) ??F ?Collect Date: ? 07/27 Location: ? [facility] ? Receive Date : ? 08/17/2015 Provider: ?SUZIE SHANNON PHARMACY CLERK Copy to: ?AVERY EARLY SILK SCREEN CUTTER ? Specimen/Source: ? Pap Test, Cervix/Endocervix, ThinPrep Imaging System with manual evaluation Last Menstrual Period: ? 2 Weeks ago Hormonal/Contraceptive Status: ? Estrogen: Patch Progesterone: tabs Previous Gynecologic Pathology: ? Yes: age 17 hx of abn pap Treatment History: ? Cryotherapy: no further abn paps ? SPECIMEN ADEQUACY ? Satisfactory for Evaluation - transformation zone component present GENERAL CATEGORIZATION ? Negative for Intraepithelial Lesion or Malignan cy ? Document reviewed and electronically signed by: ? AVI Ball(ASCP) ? Report Date: ??08/23/2015 09:34 End of Report Specimen Performing Organization Address City/State/ZIP Code Phon e Number [facility] [address] [place] [address] SERVICES documented in this encounter Visit Diagnoses Not on filedocumented in this encounter Care Teams Academic Affairs Dean Relationship Specialty Start Date End Date Unknown, Provider, PCP - General 07/04/15 documented as of this encounter
--- OUTSIDE RECORDS SUMMARY | 2022-04-19 15:22 | XMS_ITS | Encounter Summary ---
:1965 Author Organization [facility] Address [address] [place] [address] Care Team Providers Name Role Phone Unavailable Primary Care Provider Unavailable Encounter Details Date Type Department Care Team Description 01/15/2006 Results Only [facility] - Tara Luong od, Kristal Estrada, VISUAL ASSOCIATE [facility] [address] [place] [phone] (Wo rk) Social History Tobacco Use Types [...] Date : ? 01/17/2006 Provider: ?KRISTAL GORDON VISUAL ASSOCIATE Copy to: ? Specimen/Source: ?Conventional Pap Test, [...] City/State/ZIP Code Phon e Number [facility] [address] [place] [phone] SERVICES [facility] [address] [place] [address] documented in this encounter Visit Diagnoses Not on filedocumented in this encounter
[2022-04-19 20:02] LABS: Anion Gap 6.2 mmol/L (3-11); BUN 14 mg/dL (7-18); CO2 29.8 mmol/L (21.0-32.0); CREATININE 0.9 mg/dL (0.55-1.02); Calcium 8.7 mg/dL (8.5-10.1); Chloride 105 mmol/L (98-107); Glucose 85 mg/dL (74-106); Potassium 3.9 mmol/L (3.5-5.1); Sodium 141 mmol/L (136-145)
== END 2022-04-19 15:15 | disposition home or self-care (01) ==
LOC: NCHCN 15:14
PROVIDERS: PCP Nurse Practitioner Family; Visit Provider Family Medicine
DX: E87.6 Hypokalemia (principal)
CPT/HCPCS: 80048

== ENCOUNTER 2022-05-16 20:26 | Emergency (ER) | payer BC, SELFPAY ==
[2022-05-16 20:30] VITALS: BP 138/75; PULSE 78; RESP 18; TEMP 36.6; O2SAT 100
--- NOTE | 2022-05-16 20:45 | DI.CT_ITS ---
Exam(s) CT RENAL COLIC WO EXAM: CT RENAL COLIC WO CLINICAL HISTORY: left sided abdomen and flank pain. TECHNIQUE: Imaging Protocol: Axial computed tomography images with coronal and sagittal reformatted images were created and reviewed. CONTRAST MATERIAL: Noncontrast COMPARISON: US ABDOMEN RENAL ULTRASOUND from 03/22/2016 FINDINGS: ABDOMEN: Lung Bases: Normal where visualized. Liver: Normal attenuation. No measurable mass. Gallbladder and biliary tract: No radiodense calculus or dilation. Pancreas: Normal density, no calcifications or inflammatory process. Spleen: Normal. Kidneys: Normal size, contour and axis. Tiny stone lower pole left kidney. There is mild dilatation of the left renal pelvis. No obstructing stone is visible. The ureter is normal in caliber. No per inephric stranding or perinephric collection. No masses seen. Adrenal glands: No masses seen. Abdominal Aorta: Abdominal portion non-dilated. Soft tissues: Tiny fatty containing umbilical hernia. PELVIS: Bladder: Symmetric distention, no gross wall thickening. Bowel: No obstruction or bowel wall thickening. Peritoneal cavity: No ascites, collection or mesenteric inflammatory response. Reproductive: IUD. Bones: Within normal limits. IMPRESSION: Mild left hydronephrosis. No visible obstructing stone. Findings could be secondary to a recently p assed stone. Tiny nonobstructing stone lower pole left kidney. RADIATION DOSE DELIVERED: 661.77mGy.cm Total DLP DATA REPOSITORY: All CT scans at this facility are submitted to the National Radiology Data Registry (NRDR) Dose Index Registry (DIR) with the [employer] (ACR). RADIATION OPTIMIZATION: All CT scans at this facility use at least one of these dose optimization te chniques: automated exposure control; mA and/or kV adjustment per patient size (includes targeted exa ms where dose is matched to clinical indication); or iterative reconstruction.
--- NOTE | 2022-05-16 20:55 | ED.GENADUL_ITS ---
Discharge Plan Disposition Patient Disposition: HOME Condition: Stable Discharge Details Clinical Impression: Kidney stone on left side Primary Care Provider: Janet Davey ED Provider: Santi Perez Home Meds and New Rx's Prescriptions: New ondansetron 4 mg tablet,disintegrating 4 mg PO Q8H PRN (Reason: nausea and vomiting) Qty: 30 0RF oxycodone 5 mg tablet 5 mg PO Q6H PRNQty: 10 0RF Continued fexofenadine 180 mg tablet 180 mg PO DAILY metoprolol tartrate 25 mg tablet 12.5 mg PO BID galantamine 12 mg tablet 12 mg PO BID Qty: 180 3RF Rx Instructions: administer with AM and PM meals sumatriptan succinate [Imitrex] 100 MG tablet 100 mg PO ONCE Rx Instructions: PRN clotrimazole-betamethasone [Lotrisone] 45 GM cream 45 gm Topical PRN montelukast [Singulair] 10 MG tablet 10 mg PO DAILY Rx Instructions: PRN seasonal albuterol sulfate [ProAir HFA] 8.5 GM HFA aerosol inhaler 2 puff Inhalation Q6H PRN Label Comments: seasonal estradiol 1 EACH patch weekly 1 ea Transdermal . DIRECTED hydrocortisone valerate 15 GM cream 15 gm Topical BID budesonide-formoterol [Symbicort] 10.2 GM HFA aerosol inhaler 1 puff Inhalation BID azelastine-fluticasone [Dymista] 23 GM spray,non-aerosol 23 gm NS BID memantine 5 mg tablet See Rx Instructions .ROUTE .COMPLEX Qty: 180 3RF Dose Instruction: TAKE 1 TABLET BY MOUTH TWICE DAILY Rx Instructions: TAKE 1 TABLET BY MOUTH TWICE DAILY ondansetron HCl 4 mg tablet 4 mg PO Q8H (DME) BreatheRite MDI Spacer Spacer See Rx Instructions .Route Rx Instructions: As directed magnesium oxide 400 mg magnesium tablet 800 mg PO QHS ibuprofen 600 mg tablet 600 mg PO Q6H PRN (Reason: Pain and inflammation) Qty: 60 0RF Discharge Instructions Instructions: Kidney Stones (ED) Additional Instructions: you have a small 1mm kidney stone follow up with your urologist if your pain continues in a week return to the emergency department if you feel more ill, have persistent vomit or fevers. Stand Alone Forms: Work Release Medical Decision Making 56 yo female with hx of long covid, asthma, who comes in with one day of left lower abdomen pain and left lower back pain and thinks she may have a kidney stone as she has had this in the past and feels similar. Denies fevers, chills, chest pain, vomit. She appears in pain on exam, stable vitals. She has a soft abdomen, tender in the llq, no cva tenderness. Suspect kidney stone vs diverticulitis, will obtain ua, cbc, cmp, lipase and ct renal colic to further evaluate ct shows likely 1mm left upj/proximal ureteral stone. She remains stable, minimal llq tenderness, labs unremarkable, ua unremarkable. She has no findings to suggest infected stone. Will provide short course of pain medication and advised to f/u with her urologist [place] [facility] [place] and return precautions given Differential Diagnosis Differential Diagnosis: diverticulitis, kidney stone Lab Data Lab results reviewed: Yes I reviewed the patient's lab results. ECG Data Attestation: I personally reviewed and interpreted this ECG (s) as follows: Prior ECG tracings: not available for review Interpretation: IMPRESSION: Question faint 1 mm left UPJ/proximal ureteral calculus with minimal fullness to the left renal collecting system and pelvis as noted Non-specific bowel gas pattern which may represent enteritis/ileus Faint left renal calculus HPI General Mode of arrival: ambulatory . Date/Time Provider Initiated Documentation: 05/16/22 20:27 . Limitations to Documentation: no limitations . Information obtained by: patient . History of Present Illness 56 year old F presents to the emergency department with the chief complaint of abdominal pain, described as moderate, Quality is described as sharp, and is localized to the abdomen. Patient reports no radiation. Patient started experiencing t his day(s) (1) and it has been constant. No relieving factors improve symptom(s), No exacerbating factors reported . Patient did receive the following treatments prior to arrival, none Related Data Home Medications Medication Instructions Recorded Confirmed Imitrex 100 mg tablet (sumatriptan 100 mg PO ONCE 03/28/15 04/02/22 succinate) Lotrisone 1 %-0.05 % topical cream 45 gm topical PRN 03/28/15 04/02/22 (clotrimazole-betamethasone) ProAir HFA 90 mcg/actuation 2 puff inhalation Q6H PRN 03/28/15 04/02/22 aerosol inhaler (albuterol sulfate) Singulair 10 mg tablet 10 mg PO DAILY 03/28/15 04/02/22 (montelukast) estradiol 0.1 mg/24 hr weekly 1 ea transdermal . DIRECTED 03/28/15 04/02/22 transdermal patch azelastine-fluticasone 137 mcg-50 23 gm NS BID 11/11/17 08/11/21 mcg/spray nasal spray (Dymista) budesonide-formoterol HFA 160 1 puff inhalation BID 11/11/17 04/02/22 mcg-4.5 mcg/actuation aerosol inhaler (Symbicort) hydrocortisone valerate 0.2 % 15 gm topical BID 11/11/17 04/02/22 topical cream ibuprofen 600 mg tablet 600 mg PO Q6H PRN Pain and 08/11/21 04/02/22 inflammation #60 tabs memantine 5 mg tablet See Rx Instructions .Route 12/18/21 04/02/22 .COMPLEX #180 tabs inhalational spacing device 01/15/22 04/02/22 (BreatheRite MDI Spacer) magnesium oxide 800 mg PO QHS 01/15/22 04/02/22 ondansetron HCl 4 mg tablet 4 mg PO Q8H 01/15/22 04/02/22 fexofenadine 180 mg tablet 180 mg PO DAILY 04/02/22 04/02/22 galantamine 12 mg tablet 12 mg PO BID #180 tabs 04/02/22 04/02/22 metoprolol tartrate 25 mg tablet 12.5 mg PO BID 04/02/22 04/02/22 ondansetron 4 mg disintegrating 4 mg PO Q8H PRN nausea and 05/16/22 tablet vomiting #30 tabs oxycodone 5 mg tablet 5 mg PO Q6H PRN #10 tabs 05/16/22 Previous Rx's Medication Instructions Recorded ibuprofen 600 mg tablet 600 mg PO Q6H PRN Pain and 08/11/21 inflammation #60 tabs memantine 5 mg tablet See Rx Instructions .Route 12/18/21 .COMPLEX #180 tabs galantamine 12 mg tablet 12 mg PO BID #180 tabs 04/02/22 ondansetron 4 mg disintegrating 4 mg PO Q8H PRN nausea and 09/21/22 tablet vomiting #30 tabs oxycodone 5 mg tablet 5 mg PO Q6H PRN #10 tabs 05/16/22 Allergies Allergy/AdvReac Type Severity Reaction Status Date / Time latex Allergy Intermediate Skin Rash Unverified 04/02/22 11:06 animal,grass,smoke,tree Allergy Unknown Uncoded 04/02/22 11:06 pllen, molds contrast dye Allergy Unknown Unknown Uncoded 04/02/22 11:06 General Stated Complaint: Abd Prob YANETH: 3 Review of Systems All systems reviewed & are unremarkable except as noted in HPI and below Constitutional Constitutional: Denies chills and Denies fever(s) Eyes Eyes: Denies loss of vision Cardiovascular Cardiovascular: Denies chest pain and Denies dyspnea Respiratory Respiratory: Denies cough and Denies dyspnea Gastrointestinal Gastrointestinal: Denies vomiting Musculoskeletal Musculoskeletal: Denies joint swelling Neurologic Neurologic: Denies loss of vision PFSH All Active Problems (Updated 05/16/22 @ 22:04 by Santi Perez MD) Kidney stone on left side (Acute) COVID-19 long hauler (Acute) Sore throat (Acute) Cough (Acute) COVID-19 virus infection (Acute) Hallux valgus (acquired), left foot (Acute) Screening for colorectal cancer (Chronic) 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) Allergic rhinitis (Chronic 11/04/13) Postnasal drip (Chronic 04/05/14) Mild cognitive impairment (Chronic) Allergic fungal sinusitis (Acute 07/20/13) Allergic rhinitis due to pollen (Chronic 08/08/15) Closed nondisplaced avulsion fracture of tuberosity of right calcaneus (Acute 06/09/18) Because of persistent symptoms and tenderness over the anterior talus i think repeat x-rays are indicated to rule out an osteochondral injury to the talus. These are performed today and appear normal. I inform the patient that it will take along time before she is asymptomatic. I recommend a trial of topricin to help with the discomfort. follow-up with me an needed. 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 Do you feel safe at home: Yes Do you feel safe in your relationship?: Yes Exam Const General: no acute distress Orientation: alert HENMT Head: normal to inspection Ears: external ears normal General nose exam: external nose normal Mouth: moist mucous membranes Eyes General: appearance normal, both eyes and all related structures Neck Neck: normal visual inspection Resp Effort & Inspection: normal respiratory effort and able to speak in complete sentences Cardio Rate: regular rate GI Palpation: soft and tender Skin General skin exam: no rashes or lesions noted Neuro General: patient alert and patient oriented x3 Extrem General: normal to inspection Psych Mental Status: mental status grossly normal Course Vital Signs Vital signs: Vital Signs Temperature 36.6 C 05/16/22 20:30 Pulse 78 05/16/22 20:30 Respiratory Rate 18 05/16/22 20:30 Blood Pressure 138/75 05/16/22 20:30 Pulse Oximetry 100 05/16/22 20:30 Temperature 36.6 C 05/16/22 20:30 Temperature Source Tympanic 05/16/22 20:30 Pulse 78 05/16/22 20:30 Respiratory Rate 18 05/16/22 20:30 Respiratory Effort 05/16/22 20:32 Blood Pressure 138/75 05/16/22 20:30 Blood Pressure Position Supine 05/16/22 20:30 Pulse Oximetry 100 05/16/22 20:30 Pain Level 7 05/16/22 20:30
[2022-05-16 20:59] LABS: Bilirubin Negative (Negative); Blood Negative (Negative); Clarity Clear (Clear); Glucose Negative (Negative); Ketones Negative (Negative); Leukocyte Esterase Negative (Negative); Nitrite Negative (Negative); Urobilinogen 0.2 EU/dL (Up TO 0.2); pH 6.5 (5-8)
[2022-05-16 21:02] LABS: Abs Immature Grans 0.03 10^3/uL (0.0-0.06); Absolute Basophil Count 0.07 10^3/uL (0.0-0.2); Absolute Eosinophil Count 0.07 10^3/uL (0.0-0.7); Absolute Lymphocyte Count 1.59 10^3/uL (1.2-3.4); Absolute Monocyte Count 0.53 10^3/uL (0.1-0.8); Absolute Neutrophil Count 2.82 10^3/uL (1.2-6.7); Basophils % 1.4; Eosinophils % 1.4; HCT 42.1 % (36.0-46.0); HGB 13.8 g/dL (11.2-15.7); Immature Grans % 0.6; Lymphocytes % 31.1; MCH 30.7 pg (27.0-33.0); MCHC 32.8 % (32.0-36.0); MCV 94 fL (80-95); Monocytes % 10.4; Neutrophils % 55.1; Platelet Count 201 10^3/uL (130-400); RDW-SD 44.8 fL; WBC 5.11 10^3/uL (4.4-10.8)
--- NOTE | 2022-05-16 21:19 | DI.VRAD_ITS ---
PROCEDURE INFORMATION: Exam: CT Abdomen And Pelvis Without Contrast Exam date and time: 05/16/2022 9:06 PM Age: 56 years old Clinical indication: Abdominal pain; Flank; Left; Additional info: Left flank pain TECHNIQUE: Imaging protocol: Computed tomography of the abdomen and pelvis without contrast. Radiation optimization: All CT scans at this facility use at least one of these dose optimization techniques: automated exposure control; mA and/or kV adjustment per patient size (includes targeted exams where dose is matched to clinical indication); or iterative reconstruction. COMPARISON: US ABDOMEN RENAL ULTRASOUND 03/22/2016 6:53 PM FINDINGS: Liver: Normal. No mass. Gallbladder and bile ducts: Normal. No calcified stones. No ductal dilation. Pancreas: Normal. No ductal dilation. Spleen: Normal. No splenomegaly. Adrenal glands: Normal. No mass. Kidneys and ureters: Faint left renal calculus. Mild fullness to the upper pole collecting system and pelvis of the left kidney. Faint left UPJ/proximal left ureteral calculus axial image 300 series 5 not excluded Stomach and bowel: Prominent fluid-filled small bowel loops in the lower abdomen and pelvis. Mild small bowel thickening No obstruction. Appendix: No evidence of appendicitis. Intraperitoneal space: Unremarkable. No free air. No significant fluid collection. Vasculature: Unremarkable. No abdominal aortic aneurysm. Lymph nodes: Unremarkable. No enlarged lymph nodes. Urinary bladder: Unremarkable as visualized. Reproductive: Intrauterine device in the uterus Bones/joints: Unremarkable. No acute fracture. Soft tissues: Tiny fat containing periumbilical hernia IMPRESSION: Question faint 1 mm left UPJ/proximal ureteral calculus with minimal fullness to the left renal collecting system and pelvis as noted Non-specific bowel gas pattern which may represent enteritis/ileus Faint left renal calculus Dictated and Authenticated by: Colby Mckinnon MD. Ordering:BYRON Hancock MD
[2022-05-16] MEDS: Normal Saline 1,000 ML 1000 ML IV (21:47)
[2022-05-16] MEDS: MORPHine 4 MG/ML SYR IVP (21:47)
[2022-05-16] MEDS: Ondansetron 4 MG/2 ML VIAL IVP (21:48)
[2022-05-16 21:52] LABS: ALT 32 U/L (14-59); AST 27 U/L (15-37); Albumin 4.1 g/dL (3.4-5.0); Alkaline Phosphatase 65 U/L (46-116); Anion Gap 6.9 mmol/L (3-11); BUN 14 mg/dL (7-18); Bilirubin, Total 0.3 mg/dL (0.2-1.0); CO2 31.1 mmol/L (21.0-32.0); CREATININE 0.9 mg/dL (0.55-1.02); Calcium 9.2 mg/dL (8.5-10.1); Chloride 100 mmol/L (98-107); Glucose 59 mg/dL (74-106); Lipase 165 U/L (73-393); Magnesium 1.9 mg/dL (1.8-2.4); Potassium 3.6 mmol/L (3.5-5.1); Sodium 138 mmol/L (136-145); Total Protein 7.7 g/dL (6.4-8.2)
[2022-05-16] MEDS: Ondansetron O.D.T. 4 MG TABEF, 3 TABS/BTL PO (22:14)
== END 2022-05-16 22:11 | disposition home or self-care (01) ==
PROVIDERS: Emergency Provider Emergency Medicine; PCP Nurse Practitioner Family
DX: N20.2 Calculus of kidney with calculus of ureter (principal); J45.909 Unspecified asthma, uncomplicated; Z86.16 Personal history of COVID-19; Z79.51 Long term (current) use of inhaled steroids
CPT/HCPCS: 80053; 83690; 96361; 96374; 96375; 99284; 74176; 81003; 83735; 85025; J2270; J2405

== ENCOUNTER → 2022-05-31 15:04 | Outpatient (CLI) | payer BC, SELFPAY ==
--- OUTSIDE RECORDS SUMMARY | 2022-05-31 15:07 | XMS_ITS | Clinical Summary ---
:1965 Author Organization [facility] [place] [address] Care Team Providers Name Role Phone Petar Janet Isa GONCALVES Primary Care Provider Allergies Active Allergy Reactions [...] mcg (0.1 %) into each nostril Aerosol, [place] twice a day galantamine (RAZADYNE) 12 mg [...] by mouth. 2 0 Active caps QD estradioL (Lia) 0.1 Change 1 patch on 8 patch 12 01/04/2022 Active mg/24 hr Patch the skin twice a Semiweekly week. Symbicort 160-4.5 Inhale 2 puffs 0 01/23/2022 Active mcg/actuation HFA into the lungs 2 Aerosol Inhaler times daily. ondansetron (Zofran) 4 Take 4 mg by 0 01/17/2022 Active mg Tablet mouth every 8 hours as needed. omeprazole (PriLOSEC) TAKE 1 CAPSULE BY 0 01/18/2022 Active 20 mg Capsule, Delayed MOUTH EVERY DAY Release(E.C.) 30 MINUTES BEFORE EATING ProChamber Spacer USE DIRECTED 0 12/25/2021 Active WITH INHALER Allergy Relief, SWALLOW 1 TABLET 0 03/20/2022 Active fexofenadine, 180 mg BY MOUTH WHOLE Tablet WITH WATER ONCE A DAY DO NOT TAKE WITH FRUIT JUICES benzonatate (Tessalon) Take 100 mg by 0 04/02/2022 Active 100 mg Capsule mouth 3 times daily as needed. Active Problems Problem Noted Date *History of COVID-19 05/29/2022 Overview: November,. 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 Hormone replacement therapy (postmenopausal) Overview: HRT start: 2013. Current HRT: Estradiol patch 0.1mg twice weekly Methods tried: Estradiol patch, Mirena I UD (placed 04/2016) Last labs: Lipids 02/12/2022. The 10-year ASCVD risk score ([place] SUE Jr., et al., 2013) is: 1.3% Values used to calculate the score: Age: 56 years Sex: Female Is Non- : No Diabetic: No Tobacco smoker: No Systolic Blood Pressure: 97 mmHg Is BP treated: No HDL Cholesterol: 75 mg/dL Total Cholesterol: 205 mg/dL Last BP: 97/62 (02/12/2022) Hot flashes, menopausal 11/05/2021 Asthma 12/07/2010 Nephrolithiasis 12/07/2010 Raynaud's disease 12/07/2010 Migraines 12/07/2010 Resolved Problems Problem Noted Date Resolved Date Perimenopause 12/07/2010 02/16/2022 CIS - asthma 08/01/2009 12/07/2010 CIS - nephrolithiasis 08/01/2009 12/07/2010 CIS - perimenopausal 08/01/2009 12/07/2010 CIS - pneumonia 08/01/2009 12/07/2010 CIS - Raynaud's 08/01/2009 12/07/2010 Encounters Date Type Specialty Care Team Description 05/31/2022 TH Visit Obstetrics and Desiree Zabala Hot flashes (TeleHealth) Gynecology MD Mckinley 05/29/2022 TH Visit Infectious Diseases Mauri, Post-COV ID syndrome (Primary Dx); (TeleHealth) MD Juan *History of COV ID-19; 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; 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 gene dyspnea; Persistent dysp maría after COVID-19; Persistent fati marga after COVID-19 05/17/2022 Orders Only Urology Ferdinand Michael Jr., MD 05/17/2022 Orders Only Urology Ferdinand Michael Jr., MD 05/17/2022 Telephone Urology Therese Aponte CMA 05/09/2022 Transcribe Orders Primary Care Janet Davey APRN 05/03/2022 Telephone Pulmonology Nathalie Wilson 04/10/2022 Office Visit Urology Ferdinand Michael Jr., MD 04/10/2022 Hospital Encounter Radiology Ferdinand Michael ithnereyda Vicente MD 03/28/2022 Episode Changes Infectious Diseases Juan Dotson MD from Last 3 Months Immunizations Name Administration [...] Sign Reading Time Taken Comments Blood Pressure 102/56 04/24/2022 8:41 AM EDT Pulse 72 04/24/2022 8:41 AM EDT Temperature 36.2 ??C (97.2 ??F) 02/12/2022 9:11 AM EDT Respiratory Rate 18 04/24/2022 8:41 AM EDT Oxygen Saturation 100% 02/12/2022 9:11 AM EDT Inhaled Oxygen Concentration - - Weight 68.9 kg (152 lb) 04/24/2022 8:41 AM EDT Height 172.7 cm (5' 8) 04/24/2022 8:41 AM EDT Body Mass Index 23.11 04/24/2022 8:41 AM EDT Plan of Treatment Upcoming Encounters Date Type Specialty Care Team Description 07/13/2022 Appointment Radiology Maile Hinojosa MD [facility] ENDOCRINOLOGY [place], [place] [address] (Wo rk) 07/13/2022 Office Visit Endocrinology Maile Hinojosa MD [facility] DR [address] [place], [place] [address] (Wo rk) 07/25/2022 Office Visit Pulmonology Tong Norman MD [facility] Pulmonary [place], [place] [address] (Wo rk) Health Maintenance Due Date Last Done Comments Covid-19 Vaccine (#1) 02/12/1966 Pneumococcal Vaccine: At-Risk 1969 5-64yrs (1 - [...] Name Priority Date/Time Associated Diagnosis Comme nts ECHO SCAN (SCAN) 05/02/2022 12:00 Results for this AM EDT procedure are i n the results section. STRESS TEST SCAN 05/02/2022 12:00 Results for this AM EDT procedure are i n the results section. LAB SCAN 05/02/2022 12:00 Results for this AM EDT procedure are i n the results section. LAB SCAN 05/02/2022 12:00 Results for this AM EDT procedure are i n the results section. DIAGNOSTIC RADIOLOGY 05/02/2022 12:00 Res ults for this SCAN AM EDT procedure are i n the results section. CT SCAN (SCAN) 05/02/2022 12:00 Results f or this AM EDT procedure are i n the results section. PFT SCAN 05/02/2022 12:00 Results for this AM EDT procedure are i n the results section. EXTERNAL LAB CBC CMP Routine 04/19/2022 Results for this THYROID RESULTS PANEL proced ure are in the results section. LAB SCAN 04/19/2022 12:00 Results for this AM EDT procedure are i n the results section. US RETROPERITONEAL Routine 04/10/2022 10:23 Nephrolithiasis Re sults for this COMPLETE AM EDT procedure are i n the results section. LANDSCAPE PHOTOGRAPHER SCAN 03/26/2022 12:00 Res ults for this AM EDT procedure are i n the results section. LAB SCAN 03/23/2022 12:00 Results for this AM EDT procedure are i n the results section. STRESS TEST SCAN 03/13/2022 12:00 Results for this AM EDT procedure are i n the results section. STRESS TEST SCAN 03/13/2022 12:00 Results for this AM EDT procedure are i n the results section. PFT SCAN 03/11/2022 12:00 Results for this AM EDT procedure are i n the results section. LAB SCAN 03/01/2022 12:00 Results for this AM EDT procedure are i n the results section. from Last 3 Months Results SCAN DOC: ECHO (05/02/2022 12:00 AM EDT) Narrative 05/02/2022 12:00 AM EDT This result has an attachment that is no t available. Ordered by an unspecified provider. Scanning Provider MEDIA MGR SCAN EXT ORDR/RSLT SCAN DOC: CT SCAN (05/02/2022 12:00 AM EDT) Narrative 05/02/2022 12:00 AM EDT This result has an attachment that is no t available. Ordered by an unspecified provider. Scanning Provider MEDIA MGR SCAN EXT ORDR/RSLT SCAN DOC: LAB (05/02/2022 12:00 AM EDT)Only the most recent of5 resultswithin the time period is included. Narrative 05/02/2022 12:00 AM EDT This result has an attachment that is no t available. Ordered by an unspecified provider. Scanning Provider MEDIA MGR SCAN EXT ORDR/RSLT SCAN DOC: STRESS TEST (05/02/2022 12:00 AM EDT) Narrative 05/02/2022 12:00 AM EDT This result has an attachment that is no t available. Ordered by an unspecified provider. Scanning Provider MEDIA MGR SCAN EXT ORDR/RSLT SCAN DOC: DIAGNOSTIC RADIOLOGY (05/02/2022 12:00 AM EDT) Narrative 05/02/2022 12:00 AM EDT This result has an attachment that is no t available. Ordered by an unspecified provider. Scanning Provider MEDIA MGR SCAN EXT ORDR/RSLT SCAN DOC: PFT (05/02/2022 12:00 AM EDT) Narrative 05/02/2022 12:00 AM EDT This result has an attachment that is no t available. Ordered by an unspecified provider. Scanning Provider MEDIA MGR SCAN EXT ORDR/RSLT CBC / CMP / Thyroid External Results (04/19/2022) P athologist Signature Sodium 141 Potassium 3.9 Chloride 105 CO2 30 Creatinine 0.9 Glucose Lvl 85 Specimen (Source) Anatomical Location Collection Method / Collectio n Time Received Time / Laterality Volume 04/19/2022 Historical Provider POINT OF CARE TEST ORDERABLE S US Retroperitoneal Complete (04/10/2022 10:23 AM EDT) Anatomical Region Laterality Modality Abdomen Ultrasound Specimen (Source) Anatomical Collection Method Collection Time Re ceived Time Location / / Volume Laterality 04/10/2022 10:06 AM EDT Impressions 04/10/2022 10:55 AM EDT 6 mm inferior nonobstructing renal ston e Otherwise within normal limits Electronically signed by: Lakeisha vieyra MD, Radiology [place] ([phone]), at 10:46 AM Thank you for letting us participate in the care of this patient. If you are a [facility] er and have any questions regarding this report, please contact the number above. For patients who have ques tions, please contact the [facility] professio nal that requested your imaging first. ??ANDRA Roldan [facility] [address] & Dept Chair - Rad Electronically Signed Final Report ?? 10:54 am Narrative 04/10/2022 10:55 AM EDT Renal ? (Signed Final 04/10/2022 10:54 am) PATIENT INFO: ID #: ? [id number] ?: ??[birth year] (56 yrs)(F) Name: ? JESSICA Melvin GTZ ?Visit Date: 04/10/2022 10:06 am PERFORMED BY: Performed By: ? Alo GARNER, Mathew lópez Attending: ?Nelli GILL, Adalberto Beltran Referred By: ?FERDINAND MICHAEL JR Location: ? [place] SERVICE(S) PROVIDED: URETRO - Retroperitoneal Complete - IMG 3517 ? [id number] INDICATIONS: kidney stone surveillance. no stones on [...] 10:54 am ) PATIENT INFO: ID #: [id number] : [birth year] (56 y rs)(F) Name: JESSICA GTZ Visit Date: 04/10 10:06 am PERFORMED BY: Performed By: Cece Prajapati RDMS Attending: Lakeisha Aiken MD Referred By: FERDINAND MICHAEL JR Location: [place] SERVICE(S) PROVIDED: URETRO - Retroperitoneal Complete - IMG 3517 [id number] INDICATIONS: kidney stone surveillance. no stones on [...] Electronically signed by: Lakeisha vieyra MD, Radiology [place] ([phone]), at 10:46 AM Thank you for letting us participate in the care of this patient. If you are a [facility] er and have any questions regarding this report, please contact the number above. For patients who have ques tions, please contact the [facility] professio nal that requested your imaging first. Lakeisha Aiken, [facility] & Dept C hair - Rad Electronically Signed Final Report 04/10 10:54 am Ferdinand Michael Jr., MD IMG US GEN ORDERABLES SCAN DOC: LANDSCAPE PHOTOGRAPHER (03/26/2022 12:00 AM EDT) Narrative This result has an attachment that is no t available. Unknown MEDIA MGR SCAN EXT ORDR/RSLT SCAN DOC: STRESS TEST (03/13/2022 12:00 AM EDT) Narrative 03/13/2022 12:00 AM EDT This result has an attachment that is no t available. Ordered by an unspecified provider. Scanning Provider MEDIA MGR SCAN EXT ORDR/RSLT SCAN DOC: STRESS TEST (03/13/2022 12:00 AM EDT) Narrative This result has an attachment that is no t available. Unknown MEDIA MGR SCAN EXT ORDR/RSLT SCAN DOC: PFT (03/11/2022 12:00 AM EDT) Narrative 03/11/2022 12:00 AM EDT This result has an attachment that is no t available. Ordered by an unspecified provider. Scanning Provider MEDIA MGR SCAN EXT ORDR/RSLT from Last 3 Months Insurance Payer Benefit Plan Subscriber ID Effective Dates Phone Address Type / Group BLUE [employer]BS [facility] [id number] 2018-Jeanie [phone] [address]UE [facility] [address] [place] [address] Advance Directives Latest Code Status on File Code Status Date Activated Date Inactivated Comments Full Code 04/18/2017 12:11 PM 04/18/2017 5:24 PM Does patient have capacity to make decision: Yes Care Teams Mechatronics Technician Relationship Specialty Start Date End Date Janet Davey APRN PCP - General Family Medicine 07/13/20 [address] [place] [address]
--- OUTSIDE RECORDS SUMMARY | 2022-05-31 15:08 | XMS_ITS | Encounter Summary ---
:1965 Author Organization [place] [address] Care Team Providers Name Role Phone Petar Janet Moss APRN Primary Care Provider Reason for Visit Reason Comments Follow-up Encounter Details Date Type Department Care Team Description 02/12/2022 Office Visit Obstetrics and Desiree Zabala, Raissa flas hes; Gynecology at [facility] MD Hormone replacement therapy (postmenopau yanelis) [place], [place] OBSTETRICS AND [address] GYNECOLOGY [phone] [place], [place] [address] Social History Tobacco Use Types [...] (140 lb) 02/12/2022 9:11 AM EDT pt maria esther bailey Height 172.7 cm (5' 8) 02/12/2022 9:11 AM EDT Body Mass Index 21.29 02/12/2022 9:11 AM EDT documented in this encounter Progress Notes Desiree Zabala MD - 02/12/2022 9:[address] DEPARTMENT DISPATCHER Follow Up Visit Reason for Visit: Stacy [...] History: Procedure Laterality Date ??? CREATED BY Kashmi EJosephSJosephWGuido(MSUROL) Procedure Date: 01/16/2008 ??? KNEE SURGERY 03/01/14 Right knee; patella surgery ??? LITHOTRIPSY ? ? PRO CYSTOURETHROSCOPY, FULGUR <.5CM LESN N/A 04/18/2017 CYSTO, FULGURATION\BLADDER LESION\W\WO BX\LESS THAN 0.5CM (WRVU 4.05) performed by Luis Michael Jr., MD at [facility] MAIN OR ??? SHOULDER SURGERY Right 07/2019 [...] azelastine (ASTELIN) 137 mcg (0.1 %) Aerosol, [place] instill 1 spray into each nostril twice [...] Description 07/13/2022 Appointment Radiology Maile Hinojosa MD [facility] [address] [place], [place] [address] (Wo rk) 07/13/2022 Office Visit Endocrinology Maile Hinojosa MD [facility] [address] [place], [place] [address] (Wo rk) 07/25/2022 Office Visit Pulmonology Tong Norman MD [facility] Pulmonary Medici [place], [place] [address] (Wo rk) documented as of this encounter Visit Diagnoses Diagnosis Hot flashes Symptomatic menopausal or female climact wendy states Hormone replacement therapy (postmenopau yanelis) Need for prophylactic hormone replacemen t therapy (postmenopausal) documented in this encounter Care Teams Wigs Salesperson Relationship Specialty Start Date End Date Janet Davey APRN PCP - General Family Medicine 07/13/20 [address] [place] [address] documented as of this encounter
--- OUTSIDE RECORDS SUMMARY | 2022-05-31 15:08 | XMS_ITS | Encounter Summary ---
:1965 Author Organization [facility] [place] [address] Care Team Providers Name Role Phone Petar Janet Isa GONCALVES Primary Care Provider Encounter Details Date Type Department Care Team Description 01/03/2022 Telephone Obstetrics [place] [facility] [place] [address] Social History Tobacco Use Types Packs/Day [...] Description 07/13/2022 Appointment Radiology Maile Hinojosa MD [facility] ENDOCRINOLOGY [place], [place] [address] (Wo rk) 07/13/2022 Office Visit Endocrinology Maile Hinojosa MD [facility] DR [address] [place], [place] [address] (Wo rk) 07/25/2022 Office Visit Pulmonology Tong Norman MD [facility] Dr Cristiane Lux [place], [place] [address] (Wo rk) documented as of this encounter Visit Diagnoses Not on filedocumented in this encounter Care Teams Process Stripper Relationship Specialty Start Date End Date Janet Davey APRN PCP - General Family Medicine 07/13/20 [address] [place] [address] documented as of this encounter
--- OUTSIDE RECORDS SUMMARY | 2022-05-31 15:08 | XMS_ITS | Encounter Summary ---
:1965 Author Organization [facility] [address] Care Team Providers Name Role Phone Janet Davey Isa GONCALVES Primary Care Provider Reason for Visit Reason Comments Annual Exam Encounter Details Date Type Department Care Team Description 11/02/2021 Office Visit Obstetrics and Drea, Encounter for well woman exam with routine gynecological exam; Gynecology at [facility] Lucy Hinton MD Hot flashes, menopausal [facility] [address] [place], [place] OBSTETRICS & [phone] GYNECOLOGY [phone] [place], [place] [address] (Wo rk) Social History Tobacco [...] Janet Davey, SACHA [address] [place] [address] Chief Complaint Patient presents with ??? Annual [...] is significantly affecting her quality of life. 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 States partner unable to due to health concerns. HRT: As above, estradiol patch w/ Mirena for endometrial protection STI Hx Denies history of STDs. Pap hx: Last pap on 10/21/2020: NILM, HPV negative History of CHEMICAL PLANT OPERATOR pathology: none HRT - Cancer Screening Denies [...] azelastine (ASTELIN) 137 mcg (0.1 %) Aerosol, [place] instill 1 spray into each nostril twice [...] azelastine (ASTELIN) 137 mcg (0.1 %) Aerosol, [place] instill 1 spray into each nostril twice [...] History: Procedure Laterality Date ??? CREATED BY A4 Data.S.W.L.(Jostle) Procedure Date: 01/16/2008 ??? KNEE SURGERY 03/01/14 Right knee; patella surgery ??? LITHOTRIPSY ? ? PRO CYSTOURETHROSCOPY, FULGUR <.5CM LESN N/A 04/18/2017 CYSTO, FULGURATION\BLADDER LESION\W\WO BX\LESS THAN 0.5CM (WRVU 4.05) performed by Luis Michael Jr., MD at [facility] MAIN OR ??? SHOULDER SURGERY Right [...] History Narrative with 3 children. Lives in [place], [place]. 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 Eats relatively healthy with fruits, vegetables, yogurt, and milk; minimal meat. Eats 3 meals per day, does not drink tea or coffee, and occasionally drinks soda.Her youngest is 19 yrs old, in college in [place]. The other two are out of the [...] normal work of breathing Breasts: (performed with braided band assembler): Breasts are without masses, skin changes, or dimpling bilaterally. No axillary lymphadenopathy is appreciable. (Mold Maker present.) Psychiatric: She has a normal mood and affect. Her behavior is normal. Thought content normal. Pelvic Exam: Performed in the presence of a braided band assembler Normal external female genitalia with evidence of [...] a PCP for routine healthcare maintenance and seat cover installer for osteoporosis management. Pt is s/p Mirena [...] estrogen dose management. After review with attending hiv counselor, Dr. Miner, shortly after patient left, it [...] medical management discussed with Dr. Miner, attending hiv counselor. Lucy Shepard MD PGY2 Brittanie Hardy LPN - 11/02/2021 3:00 PM EST This patient was seen in the OBGYN clinic today. I was present as braided band assembler for the sensitive parts of her examination. eCsar Miner MD - 11/02/2021 3:00 PM EST [...] Description 07/13/2022 Appointment Radiology Maile Hinojosa MD [facility] ENDOCRINOLOGY [place], [place] [address] (Wo rk) 07/13/2022 Office Visit Endocrinology Maile Hinojosa MD [facility] [address] [place], [place] [address] (Wo rk) 07/25/2022 Office Visit Pulmonology Tong Norman MD [facility] Pulmonary Medici [place], [place] [address] (Wo rk) documented as of this encounter Visit Diagnoses Diagnosis Encounter for well woman exam with merrick resendiz gynecological exam Hot flashes, menopausal Symptomatic menopausal or female climact wendy states documented in this encounter Care Teams Technical Cable Jointer Relationship Specialty Start Date End Date Janet Davey, BUYERS' AGENT PCP - General Family Medicine 07/13/20 [address] [place] [address] documented as of this encounter
--- OUTSIDE RECORDS SUMMARY | 2022-05-31 15:08 | XMS_ITS | Encounter Summary ---
:1965 Author Organization [facility] [place] [address] Care Team Providers Name Role Phone Petar Janet Isa GONCALVES Primary Care Provider Encounter Details Date Type Department Care Team Description 07/13/2020 Hospital Encounter Ultrasound at [facility] Ferdinand Michael Nephrolithiasis [facility] [place] [address] UROLOGY DEPT. [phone] [place], [place] [address] Social History Tobacco Use Types [...] (0.1 %) Aerosol, each nostril twice a [place] day SUMAtriptan (IMITREX) as needed for 1 [...] 05/01/2016 05/01/2021 20 mcg/24 hr (5 years) [id number] IUD cetirizine (ZYRTEC) 10 Take 10 mg by mouth 0 02/12/2022 mg tablet daily. tacrolimus (PROTOPIC) 1 Appl(s) Top Twice 0 08/2402/12/2022 0.1 % ointment daily KETOCONAZOLE (NIZORAL Apply topically. 0 08/24/20 10 02/12/2022 TOP) documented as of this encounter Plan of Treatment Upcoming Encounters Date Type Specialty Care Team Description 07/13/2022 Appointment Radiology Maile Hinojosa MD [facility] ENDOCRINOLOGY [place], [place] [address] (Wo rk) 07/13/2022 Office Visit Endocrinology Maile Hinojosa MD [facility] DR [address] [place], [place] [address] (Wo rk) 07/25/2022 Office Visit Pulmonology Tong Norman MD [facility] Pulmonary Medici [place], [place] [address] (Wo rk) documented as of [...] number below. Electronically signed by: Antoinette Lawson, [facility] ([phone]), at 8:56 AM ?Mallika Galindo, [facility] Chief Electronically Signed Final Report ?? 09:02 am Narrative 07/13/2020 9:03 AM EST Renal ? (Signed Final 07/13/2020 09:02 am) PATIENT INFO: ID #: ? [id number] ?: ??[birth year] (54 yrs)(F) Name: ? JESSICA Charles GTZ ?Visit Date: 07/13/2020 07:58 am PERFORMED BY: Performed By: ? Jolene Alexander RDMS Attending: ?Mateo GILL, Mallika Ribera Referred By: ?FERDINAND MICHAEL JR Location: ? [place] SERVICE(S) PROVIDED: ??URETRO - Retroperitoneal Complete - I [id number] ? [id number] INDICATIONS: ??? stones COMPARISON: Ultrasound: 06/30/19 RIGHT [...] 09:02 am ) PATIENT INFO: ID #: [id number] : [birth year] (54 y rs)(F) Name: JESSICA GTZ Visit Date: 07/13 07:58 am PERFORMED BY: Performed By: Sidra Alexander RDMS Attending: Mallika Galindo MD Referred By: FERDINAND MICHAEL JR Location: [place] SERVICE(S) PROVIDED: URETRO - Retroperitoneal Complete - [facility] 3517 [id number] INDICATIONS: ? stones COMPARISON: Ultrasound: 06/30/19 RIGHT [...] below. Electronically signed by: Antoinette Lawson, Radiology [place] ([phone]), at 8:56 AM Mallika Galindo, Learning Support Resource Room Teacher Electronically Signed Final Report 07/13 09:02 am Ferdinand Michael Jr., MD IMG GEN ORDERABLES documented in this encounter Visit Diagnoses Diagnosis Nephrolithiasis Calculus of kidney documented in this encounter Care Teams Anthropometrist Relationship Specialty Start Date End Date Janet Davey APRN PCP - General Family Medicine 07/13/20 [address] [place] [address] documented as of this encounter
--- OUTSIDE RECORDS SUMMARY | 2022-05-31 15:08 | XMS_ITS | Encounter Summary ---
:1965 Author Organization [facility] [place] [address] Care Team Providers Name Role Phone Janet Davey APRN Primary Care Provider Encounter Details Date Type Department Care Team Description 10/21/2020 Hospital Encounter Mammography/DXA at Janet Davey, En counter for [facility] screening mammogram [facility] [address] [facility] [address], [address] [place] [id number] Social History Tobacco Use Types Packs/Day Years [...] (0.1 %) Aerosol, each nostril twice a [place] day SUMAtriptan (IMITREX) as needed for 1 [...] 05/01/2016 05/01/2021 20 mcg/24 hr (5 years) [id number] IUD cetirizine (ZYRTEC) 10 Take 10 mg by mouth 0 02/12/2022 mg tablet daily. tacrolimus (PROTOPIC) 1 Appl(s) Top Twice 0 08/2402/12/2022 0.1 % ointment daily KETOCONAZOLE (NIZORAL Apply topically. 0 08/24/20 10 02/12/2022 TOP) documented as of this encounter Plan of Treatment Upcoming Encounters Date Type Specialty Care Team Description 07/13/2022 Appointment Radiology Maile Hinojosa MD [facility] ENDOCRINOLOGY [place], [place] [address] (Wo rk) 07/13/2022 Office Visit Endocrinology Maile Hinojosa MD [facility] ENDOCRINOLOGY [place], [place] [address] (Wo rk) 07/25/2022 Office Visit Pulmonology Tong Norman MD [facility] Pulmonary Medici ne [place], [place] [address] (Wo rk) documented as of [...] ? Electronically signed by: Shane Burciaga MD, [facility] ([phone]), at 10/24/2020 10:53 AM Janet Davey APRN IMG MAMMO ORDERABLES documented in this encounter Visit Diagnoses Diagnosis Encounter for screening mammogram for [place] cancer documented in this encounter Care Teams Broiler Chef Or Cook Relationship Specialty Start Date End Date Janet Davey APRN PCP - General Family Medicine 07/13/20 [address] [place] [address] documented as of this encounter
--- OUTSIDE RECORDS SUMMARY | 2022-05-31 15:08 | XMS_ITS | Encounter Summary ---
:1965 Author Organization [facility] [place] [address] Care Team Providers Name Role Phone Janet Davey APRN Primary Care Provider Encounter Details Date Type Department Care Team Description 11/07/2020 Telephone Obstetrics and Gynecology [place] [address] [place] [address] [phone] Social History Tobacco Use Types Packs/Day Years [...] Radiology Maile Hinojosa MD [facility] [address] [place], [place] [address] (Wo rk) 07/13/2022 Office Visit Endocrinology Maile Hinojosa MD [facility] ENDOCRINOLOGY [place], [place] [address] (Wo rk) 07/25/2022 Office Visit Pulmonology Tong Norman MD [facility] Pulmonary Medici ne [place], [place] [address] (Wo rk) documented as of this encounter Visit Diagnoses Not on filedocumented in this encounter Care Teams Night Time Nanny Relationship Specialty Start Date End Date Janet Davey APRN PCP - General Family Medicine 07/13/20 [address] [place] [address] documented as of this encounter
--- OUTSIDE RECORDS SUMMARY | 2022-05-31 15:08 | XMS_ITS | Encounter Summary ---
:1965 Author Organization [facility] [place] [address] Care Team Providers Name Role Phone Janet Davey APRN Primary Care Provider Encounter Details Date Type Department Care Team Description 05/31/2022 TH Visit Obstetrics and Sagrario, Desiree Sen MD Hot flashes (TeleHealth) Gynecology at [facility] [place] [address] GYNECOLOGY [phone] [place], [place] [address] (Wo rk) Social History Tobacco Use Types Packs/Day Years Used Date Never Smoker Smokeless Tobacco: Never Used Alcohol Use Standard Drinks/Week Comments No 0 (1 standard drink = 0.6 oz pure alcoho l) Sex Assigned at Date Recorded Female 01/29/2022 12:45 PM EDT documented as of this encounter Progress Notes Syeda John, KAYLI - 05/31/2022 2:20 PM EDT ____ Patient not reached __X__Patient reached, unable to continue speaking at the time she was called (05/17/22); would like to be called back on 05/18/22. ___Confirmed patient name and date of ___Confirmed tele med appt (Virtual visit) is downloaded and functioning ___Confirmed location of patient- TeleVisit is taking place in [place]__ [place]__[place]__ [place]__ If not on myDH, working on signing up for my DH Confirmed has completed any pre-visit questionnaires If has not received required previsit questionnaires, send via myDH ___Reviewed medications, allergies, pharmacy, pain/depression, education ___Documented height/weight/LMP Other information or concerns: documented in this encounter Plan of Treatment Upcoming Encounters Date Type Specialty Care Team Description 07/13/2022 Appointment Radiology Maile Hinojosa MD [facility] ENDOCRINOLOGY [place], [place] [address] (Wo rk) 07/13/2022 Office Visit Endocrinology Maile Hinojosa MD [facility] [address] [place], [place] [address] (Wo rk) 07/25/2022 Office Visit Pulmonology Tong Norman MD [facility] Pulmonary Medici ne [place], [place] [address] (Wo rk) documented as of this encounter Visit Diagnoses Diagnosis Hot flashes Symptomatic menopausal or female climact [place] documented in this encounter Care Teams Typing Element Machine Operator Relationship Specialty Start Date End Date Janet Davey, PHYS ASSISTANT PCP - General Family Medicine 07/13/20 [address] [place] [address] documented as of this encounter
--- OUTSIDE RECORDS SUMMARY | 2022-05-31 15:08 | XMS_ITS | Encounter Summary ---
:1965 Author Organization [facility] [place] [address] Care Team Providers Name Role Phone Janet Davey Isa GONCALVES Primary Care Provider Reason for Referral Diagnostic Test (Routine) - Authorized Specialty Diagnoses / Procedures Referred By Contact Refer red To Contact Radiology Diagnoses Osteoporosis, unspecified osteoporosis type, unspecified pathological fracture presence Maile Hinojosa MD [facility] Rad Xray Procedures DXA Central Spine, Hip, and/or Whole Body (Generic) [facility] [address] [place] [address] Dr [place] [address] [place] [address] Referral ID Status Reason Start Expiration Visits Visits Date Date Requested Authorized [id number] Authorized Specialty 12/08/2022 1 1 Service 1 Requested Encounter Details Date Type Department Care Team Description 06/09/2021 Office Visit Endocrinology at [facility] Maile Mccurdy, Osteoporosis, [facility] unspecified Drive [facility] osteoporosis type, [place] [address] CENTER unspecyoselyn [phone] ENDOCRINOLOGY pathological fracture [place], [place] [address] presence Social History Tobacco Use Types [...] Davey APRN Mrs Stacy Albright 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 She was previously seen by 06/2020. She has had 3 episodes of kidney stones, does not remember when was a last one, in pathology I see one in 2009. Has been on ERT for a long time, and tells me that her new NEWS GATHERING TECHNICIAN wants to decrease or stop it. She [...] [] 701-900 mg [] 901-1100 mg [] 2380-4777 mg [] 3538-5266 mg [] Above 1500 mg Medications: Current [...] azelastine (ASTELIN) 137 mcg (0.1 %) Aerosol, [place] instill 1 spray into each nostril twice [...] History Narrative with 3 children. Lives in [place], [place]. 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 Eats relatively healthy with fruits, vegetables, [...] MD [facility] [address] [place], [place] [address] (Wo rk) 07/13/2022 Office Visit Endocrinology Maile Hinojosa MD [facility] [address] [place], [place] [address] (Wo rk) 07/25/2022 Office Visit Pulmonology Tong Norman MD [facility] Pulmonary Medici ne [place], [place] [address] (Wo rk) Scheduled Orders Name [...] 9.0 8.5 - 10.5 ALBERT BOYKIN mg/dL [facility] LABOR[facility] Specimen Anatomical Collection Method Collection Time Receive d Time (Source) Location / / Volume Laterality Blood 06/09/2021 4:57 PM 1 5:05 EDT PM EDT Resulting Agency Comment Spec In Lab Maile Hinojosa MD CHEMISTRY ORDERABLES Performing Organization Address City/[facility]/ZIP [place] Phon e Number [address] PTH (06/09/2021 4:57 PM EDT) P athologist Signature PTH 59 15 - 65 ALBERT ASHUTOSH pg/mL [facility] Specimen Anatomical Collection Method Collection Time Receive d Time (Source) Location / / Volume Laterality Blood 06/09/2021 4:57 PM 1 5:05 EDT PM EDT Resulting Agency Comment Spec In Lab Maile Hinojosa MD CHEMISTRY ORDERABLES Performing Organization Address City/[facility] [address] Collagen Type I C-Telopeptide (06/09/2021 4:57 PM EDT) P athologist Signature CTX 283 pg/mL [facility] Comment: ?Unable to flag abnormal result(s), [...] loss. For additional information, please refer to https://education.Slots.com/f aq/YWD194 (This link is being provided for informa tional/ educational purposes only.) Test Performed by [employer], vWise [facility], [address] [place] [address] 2014 08 Omar Kate M.D., Ph.D., Director [facility] [employer] , [facility] [phone] Specimen Anatomical Collection Method Collection Time Receive d Time (Source) Location / / Volume Laterality Blood 06/09/2021 4:57 PM 1 EDT 12:14 PM EDT Resulting Agency Comment Spec In Lab Maile Hinojosa MD CHEMISTRY ORDERABLES Performing Organization Address City/State/ZIP [place] [address] documented in this encounter Visit Diagnoses Diagnosis Osteoporosis, unspecified osteoporosis t ype, unspecified pathological fracture presence documented in this encounter Care Teams Physical Design Engineer Relationship Specialty Start Date End Date Janet Davey APRN PCP - General Family Medicine 07/13/20 [address] [place] [address] documented as of this encounter
--- OUTSIDE RECORDS SUMMARY | 2022-05-31 15:08 | XMS_ITS | Encounter Summary ---
:1965 Author Organization [facility] [place] [address] Care Team Providers Name Role Phone EdJanet mendez Isa GONCALVES Primary Care Provider Encounter Details Date Type Department Care Team Description 02/12/2022 Laboratory Appointment Lab 3L [facility] Hormone replacement [facility] therapy ([place]) [place] [address] Social History Tobacco Use Types [...] Maile Hinojosa MD [facility] [address] [place], [place] [address] (Wo rk) 07/13/2022 Office Visit Endocrinology Maile Hinojosa MD [facility] [address] [place], [place] [address] (Wo rk) 07/25/2022 Office Visit Pulmonology Tong Norman MD [facility] [place], [place] [address] (Wo rk) documented as of this encounter Procedures Procedure Name Priority Date/Time Associated Diagnosis Comme [facility] VENIPUNCTURE Routine 02/12/2022 8:35 AM Hormone replacement Results for this EDT therapy (HRT) procedure are in the results section. documented in this encounter Results Lipid Panel (Reflex Direct LDL) (02/12/2022 8:35 AM EDT) athologist Signature Chol, Total 205 mg/dL [facility] Comment: Lower Risk: <200 mg/dL Average Risk: 200-239 mg/dL Higher Risk: >tr=845 mg/dL Triglycerides 86 mg/dL [facility] Comment: Average Risk/Lower Risk: <150 mg/dL Borderline High Risk: 150-199 mg/dL High Risk: 200-499 mg/dL Very High Risk: >xl=526 mg/dL HDL 75 mg/dL [facility] Comment: Males: ?? Higher Risk: <40 mg/dL Females: ?? Higher Risk: <50 mg/dL LDL Cholesterol 113 mg/dL [facility] Comment: Lowest Risk: <100 mg/dL Lower Risk: 100-129 mg/dL Borderline High Risk: 130-159 mg/dL High Risk: 160-189 mg/dL Very High Risk: >nk=249 mg/dL Chol/HDL Ratio 2.7 ratio [facility] Lipid Interpretation See Note [facility] Comment: Lipid management should be guided by a p atient? s ASCVD risk, goals and preferences. ACC/AHA Guidelines recommend high intens ity statin if clinical ASCVD or LDL greater than or equal to 190 mg/dL. http://tinyurl.com/BHW-OSP-Byjdydkfi Adults aged 40-75 with LDL 70-189 mg/dL should have their 10 year ASCVD risk estimated with the ACC/AHA ASCVD risk es timator http://tools.acc.org/NCNYV-Kulk-Cmaidgpr r/ Statin should be discussed if risk [...] Organization Address City/State/[place] [address] documented in this encounter Visit Diagnoses Diagnosis Hormone replacement therapy (HRT) documented in this encounter Care Teams Manager Supply Chain Planning Relationship Specialty Start Date End Date Janet Davey APRN PCP - General Family Medicine 07/13/20 [address] [place] [address] documented as of this encounter
--- OUTSIDE RECORDS SUMMARY | 2022-05-31 15:08 | XMS_ITS | Encounter Summary ---
:1965 Author Organization [facility] [place] [address] Care Team Providers Name Role Phone EdJanet mendez Isa GONCALVES Primary Care Provider Encounter Details Date Type Department Care Team Description 12/28/2021 Orders Only Obstetrics and Gynecology [place] [address] Social History Tobacco Use Types Packs/Day [...] Radiology Maile Hinojosa MD [facility] ENDOCRINOLOGY [place], [place] [address] (Wo rk) 07/13/2022 Office Visit Endocrinology Maile Hinojosa MD [facility] [address] [place], [place] [address] (Wo rk) 07/25/2022 Office Visit Pulmonology Tong Norman MD [facility] Dr Cristiane [address] [place], [place] [address] (Wo rk) documented as of this encounter Visit Diagnoses Not on filedocumented in this encounter Care Teams Ed Case Manager Relationship Specialty Start Date End Date Janet Davey APRN PCP - General Family Medicine 07/13/20 [address] [place] [address] documented as of this encounter
--- OUTSIDE RECORDS SUMMARY | 2022-05-31 15:08 | XMS_ITS | Encounter Summary ---
:1965 Author Organization [facility] [place] [address] Care Team Providers Name Role Phone EdJanet [...] MD [facility] [address] [place], [place] [address] (Wo rk) 07/13/2022 Office Visit Endocrinology Maile Hinojosa MD [facility] [address] [place], [place] [address] (Wo rk) 07/25/2022 Office Visit Pulmonology Tong Norman MD [facility] Pulmonary Mediceduardo ne [place], [place] [address] (Wo rk) documented as of this encounter Visit Diagnoses Not on filedocumented in this encounter Care Teams Family Service Worker Relationship Specialty Start Date End Date Janet Davey APRN PCP - General Family Medicine 07/13/20 [address] [place] [address] documented as of this encounter
--- OUTSIDE RECORDS SUMMARY | 2022-05-31 15:08 | XMS_ITS | Encounter Summary ---
:1965 Author Organization [facility] Address [facility] [place] [address] Care Team Providers Name Role Phone Petar Janet Moss APRN Primary Care Provider Reason for Visit Reason Comments Annual Exam Encounter Details Date Type Department Care Team Description 10/21/2020 Office Visit Obstetrics and Saul Das Hormone replacement therapy (HRT); Gynecology at [facility] H, CNM Encounter for gynecological examination with abnormal finding[facility] [address], [place] [phone] [phone] Social History Tobacco Use Types Packs/Day Years [...] documented in this encounter Progress Notes Saul Das CNM - 10/21/2020 2:20 PM EST Reason [...] azelastine (ASTELIN) 137 mcg (0.1 %) Aerosol, [place] instill 1 spray into each nostril twice a day 0 ??? linaclotide (LINZESS) 72 mcg Capsule Take 72 mcg by mouth. One time per week ??? SUMAtriptan (IMITREX) 100 mg Tablet as needed for Migraine. 1 ??? levonorgestrel (MIRENA) 20 mcg/24 hr (5 years) IUD 1 each by Intrauterine route once. Lot [id number] ??? hydrocortisone (WESTCORT) 0.2 % Cream Apply [...] Procedure Laterality Date ??? CREATED BY INTERFACE EJosephS.WJosephLJoseph([employer]) Procedure Date: 01/16/2008 ??? KNEE SURGERY 03/01/14 Right knee; patella surgery ??? LITHOTRIPSY ? ? PRO CYSTOURETHROSCOPY, FULGUR <.5CM GISELA N/A 04/18/2017 CYSTO, FULGURATION\BLADDER LESION\W\WO BX\LESS THAN 0.5CM (WRVU 4.05) performed by Luis Michael Jr., MD at [facility] MAIN OR ??? SHOULDER SURGERY Right [...] History Narrative with 3 children. Lives in [place], [place]. 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 Eats relatively healthy with fruits, vegetables, yogurt, and milk; minimal meat. Eats 3 meals per day, does not drink tea or coffee, and occasionally drinks soda.Her youngest is 19 yrs old, in college in [place]. 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 Pap smeartoday ??? Hormone replacement [...] diet F/u for annual or prn. Saul Das CNM documented in this encounter Miscellaneous Notes Addendum Note - Saul Das CNM - 10/21/2020 2:20 PM EST Addended by: SAUL DAS on: 10/24/2020 04:44 PM Modules accepted: Orders, Level of Service documented in this encounter Plan of Treatment Upcoming Encounters Date Type Specialty Care Team Description 07/13/2022 Appointment Radiology Maile Hinojosa MD [facility] [place] [id number] (Wo rk) 07/13/2022 Office Visit Endocrinology Maile Hinojosa MD [facility] DR [address] [place], [place] [address] (Wo rk) 07/25/2022 Office Visit Pulmonology Tong Norman MD [facility] Pulmonary Medici [place], [place] [address] (Wo rk) documented as of this encounter Procedures Procedure Name Priority Date/Time Associated Comments Diagnosis CYTOPATHOLOGY Routine 10/24/2020 4:44 PM Cervical cancer Resul ts for this GYNECOLOGICAL EST screening procedure are in the results section. HPV Routine 10/21/2020 2:20 PM Results f or this EST procedure are i n the results section. GLOBAL CONSUMER SECTOR VICE PRESIDENT CYTOLOGY Routine 10/21/2020 2:20 PM Results f or this INTERPRETATION EST procedure are in the results section. GLOBAL CONSUMER SECTOR VICE PRESIDENT CYTOLOGY FINAL Routine 10/21/2020 2:20 PM Res ults for this REPORT EST procedure are i n the results section. documented in this encounter Results Cytopathology Gynecological (10/24/2020 4:44 PM EST) Specimen Anatomical Collection Method Collection Time Receive d Time (Source) Location / / Volume Laterality AP Specimen 10/24/2020 4:44 PM 1 4:44 EST PM EST Narrative [facility] LABORAT ORY - 10/24/2020 4:44 PM EST Specimen requisition ordered. ??Separate Pathology report to follow Saul Das CNM PATHOLOGY/CYTOLOGY ORDERABLE S Performing Organization Address City/[facility]/ZIP [place] [address] GLOBAL CONSUMER SECTOR VICE PRESIDENT Cytology Interpretation (10/21/2020 2:20 PM EST) [facility] gist Method Time Signature Group Fitness Instructor Cytology NILM ALBERT Interpretation Other [facility] LABORATORY Comment: Group Fitness Instructor Cytology Final Report Acces kendall: [id number] Group Fitness Instructor Cytology Comment Present [facility] LAB[facility] Endocervical Component Present [facility]OR[facility] Specimen Anatomical Collection Method Collection Time Receive d Time (Source) Location / / Volume Laterality AP Specimen 10/21/2020 2:20 PM 1 1:35 EST PM EST Saul Das CNM PATHOLOGY/CYTOLOGY ORDERABLE S Performing Organization Address City/[facility]/ZIP [place] [address] Group Fitness Instructor Cytology Final Report (10/21/2020 2:20 PM EST) Component Value Ref Test Analysis Performed At [facility] gist Range Method Time Signature Group Fitness Instructor Cytology [id number] ? Location: 5L ALBERT Final Report ASHUTOSH The signing pathologist has (i) examined the relevant preparation(s) for the [facility] specimen(s) and (ii) rendered or confirmed the diagnosis(es) . HOSPITAL LABORATORY . ? Group Fitness Instructor Final DIAGNOSIS Other Negative for squamous intraepithelial lesion (TIGIST). See disc ussion. For consensus guidelines for the management of c ervical cancer screening test results, please see: ?? http://www.asccp.org . Electronically signed by: ??Alvino Nash MD Verified: ??11/05/2020 ?Pathologist Performed at: ??-[facility] Dept. of Pathology, [place], [place] DISCUSSION Endometrial cells present in a [...] intended to detect low risk HPV types. Lsia brayan HPV test Specimen: HPV Testing - Cytology Liquid Based Prep The Lisa brayan ? HPV delores t was validated, performed and results reported through the Laboratory for Clinical Gen omics and Advanced Technology (CGAT) at [facility]. ? - David Avilez, PhD, [facility], Director-[facility] STATEMENT OF ADEQUACY Specimen submitted is satisfactory. Endocervical component present. CLINICAL INFORMATION HPV Option: ?Concurrent HPV and Pap CT/NG Option: ?No Preparation: ? Liquid based Pap Specimen Source: ? Cervical/Endocervical LMP: ? n/a Hysterectomy: ?No : ?No : ?No I.U.D.: ?Yes Pelvic Radiation: ?No Hist Abnl Pap/Biopsy: ?No Prior GLOBAL CONSUMER SECTOR VICE PRESIDENT Therapy: ? No Hist of HPV Vaccine: ? No . CLINICAL INFORMATION ICD Diagnosis: ? Z12.4 Encounter for screening for malignant neoplasm of cervix Clinical Data, Significant Therapy and Clinical Impression ? ? : ?_ This Pap Test has been evalu ated with the assistance of the [employer] Pap Test Imaging System. Note: The Pap test is a screening test for cervical cancer with an inherent false-negative rate dependent upon several variables. For further information please contact the [facility] Laboratory. Reference: Devika LEON. Geospatial Intelligence Analyst of Pap Smear Results. In: Sukumar BS, Roni CALLEJAS, meghan spangler. The Pap Smear. [place]: Jonah, 2002: 71-77. Specimen (Source) Anatomical Collection Method Collection Time Re ceived Time Location / / Volume Laterality 10/21/2020 2:20 PM EST Saul Das CNM PATHOLOGY/CYTOLOGY ORDERABLE S Performing Organization Address City/State/[place] [address] HPV (10/21/2020 2:20 PM EST) [facility] Method Time Signature HPV 16 NEGATIVE NEGATIVE [facility] LABORATORY HPV 18 NEGATIVE NEGATIVE [facility] HPV Other HR NEGATIVE NEGATIVE [facility] HPV See Comment ALBERT Interpretation [facility] Comment: NEGATIVE for high-risk HPV *. [...] Resulting Agency Comment Spec In Lab Saul CHAVEZ PATHOLOGY/CYTOLOGY ORDERABLE S Performing Organization Address City/State/Z[place] [address] documented in this encounter Visit Diagnoses Diagnosis Hormone replacement therapy (HRT) Encounter for gynecological examination with abnormal finding Routine gynecological examination Cervical cancer screening Screening for malignant neoplasm of the cervix documented in this encounter Care Teams Bobbin Winder Relationship Specialty Start Date End Date Janet Davey APRN PCP - General Family Medicine 07/13/20 [address] [place] [address] documented as of this encounter
--- OUTSIDE RECORDS SUMMARY | 2022-05-31 15:08 | XMS_ITS | Encounter Summary ---
:1965 Author Organization [facility] [place] [address] Care Team Providers Name Role Phone Janet Davey APRN Primary Care Provider Reason for Referral Diagnostic Test (Routine) - Closed Specialty Diagnoses / Procedures Referred By Contact Refer red To Contact Radiology Diagnoses Encounter for screening mammogram for breast cancer Janet Davey APRN [facility] Rad Mammography Procedures Mammo Screening Cad and Eddie Bilateral [address] [address] Referral ID Status Reason Start Date Expiration Date Visits V isits Requested Authorized [id number] Closed Specialty 09/12/2021 03/12/2023 1 1 Service Requested Reason for Visit Diagnostic Test (Routine) - Closed Specialty Diagnoses / Procedures Referred By Contact Refer red To Contact Radiology Diagnoses Encounter for screening mammogram for breast cancer Janet Davey APRN [facility] Rad Mammography Procedures Mammo Screening Cad and Eddie Bilateral [address] [address] Referral ID Status Reason Start Date Expiration Date Visits V isits Requested Authorized [id number] Closed Specialty 09/12/2021 03/12/2023 1 1 Service Requested Encounter Details Date Type Department Care Team Description 11/02/2021 Hospital Encounter Mammography/DXA at Janet Davey, [place] [facility] [facility] [facility] [address] [facility] [address], [address] [place] [address] [phone] Social History Tobacco Use Types Packs/Day Years Used Date Never Smoker Smokeless Tobacco: Never Used Alcohol Use Standard Drinks/Week Comments No 0 (1 standard drink = 0.6 oz pure alcoho l) Sex Assigned at Date Recorded Female 01/29/2022 12:45 PM EDT documented as of this encounter Medications at Time of Discharge Medication Sig Dispensed Refills Start Date End Date calcium carbonate/vitamin Take by mouth 0 D3 (VITAMIN D-3 ORAL) daily. b complex vitamins Capsule Take 1 capsule by 0 mouth daily. MAGNESIUM ORAL Take by mouth. 2 0 caps QD acyclovir (ZOVIRAX) 200 mg TK 1 C PO FID FOR 5 0 01/01/2020 Capsule DAYS cyclobenzaprine (Flexeril) TK 1 T PO TID PRN 0 5 mg Tablet galantamine (RAZADYNE) 12 12 mg 2 times 0 018 mg Tablet daily. memantine (NAMENDA) 5 mg 5 mg 2 times daily. 0 Tablet azelastine (ASTELIN) 137 instill 1 spray 0 2016 mcg (0.1 %) Aerosol, [place] into each nostril twice a day SUMAtriptan (IMITREX) 100 as needed for 1 016 mg Tablet Migraine. hydrocortisone (WESTCORT) Apply topically as 0 0.2 % Cream needed. multivitamin (THERAGRAN) Take 1 tablet by 0 tablet mouth daily. montelukast (SINGULAIR) 10 Take 10 mg by mouth 0 12/07/2010 mg tablet every morning. albuterol (ACCUNEB) 0.63 0 08/24/2010 mg/3 mL nebulizer solution chlorthalidone (Hygroten) Take 1 tablet by 90 tablet 3 08/2805/29/2022 25 mg Tablet mouth daily. Estradiol (Lia) 0.025 Change 1 patch on [...] MD [facility] [place], [place] [address] (Wo rk) 07/13/2022 Office Visit Endocrinology Maile Hinojosa MD [facility] [place], [place] [address] (Wo rk) 07/25/2022 Office Visit Pulmonology Tong Norman MD [facility] er Pulmonary Medici [place], [place] [address] (Wo rk) documented as of [...] have questions please contact the health career manager that requested your imaging first. ? Narrative 11/03/2021 8:58 AM EST EXAMINATION: MAMMO [...] cancer documented in this encounter Care Teams Wind Plant Manager Relationship Specialty Start Date End Date Janet Davey APRN PCP - General Family Medicine 07/13/20 [address] [place] [address] documented as of this encounter
--- OUTSIDE RECORDS SUMMARY | 2022-05-31 15:08 | XMS_ITS | Encounter Summary ---
:1965 Author Organization [facility] [place] [address] Care Team Providers Name Role Phone Janet Davey Isa GONCALVES Primary Care Provider Reason for Visit Reason Comments Follow-up Encounter Details Date Type Department Care Team Description 01/09/2021 Office Visit Obstetrics and Lucy hSepardenolena [place] [facility] [place] [facility] Victor Manuel cifuentes [facility] [place] [address] OBSTETRICS & GYNECOLOGY [phone] [place], [place] [address] (Wo rk) Social History Tobacco [...] Visit: 01/09/2021 Referred by: Cece Graham [place] [address] HPI: Stacy [place] is a 55 y.o.. [...] azelastine (ASTELIN) 137 mcg (0.1 %) Aerosol, [place] instill 1 spray into each nostril twice [...] 1 each by Intrauterine route once. Lot [id number] 05/01/16 05/01/21 PROVIDER, HISTORICAL hydrocortisone (WESTCORT) 0.2 [...] azelastine (ASTELIN) 137 mcg (0.1 %) Aerosol, [place] instill 1 spray into each nostril twice a day 0 ??? LINZESS 145 mcg Capsule 145 mg as needed. 0 ??? SUMAtriptan (IMITREX) 100 mg Tablet as needed for Migraine. 1 ??? levonorgestrel (MIRENA) 20 mcg/24 hr (5 years) IUD 1 each by Intrauterine route once. Lot [id number] ??? hydrocortisone (WESTCORT) 0.2 % Cream Apply [...] History: Procedure Laterality Date ??? CREATED BY [employer]) Procedure Date: 01/16/2008 ??? KNEE SURGERY 03/01/14 Right knee; patella surgery ??? LITHOTRIPSY ? ? PRO CYSTOURETHROSCOPY, FULGUR <.5CM GISELA N/A 04/18/2017 CYSTO, FULGURATION\BLADDER LESION\W\WO BX\LESS THAN 0.5CM (WRVU 4.05) performed by Luis Michael Jr., MD at [facility] MAIN OR ??? SHOULDER SURGERY Right [...] History Narrative with 3 children. Lives in [place], [place]. 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 Eats relatively healthy with fruits, [...] Result Value Ref Range Surgical Pathology Report [id number] Location: 5L The signing pathologist has (i) [...] DO Verified: 12/14/2020 11:13 Pathologist Performed at: -[facility] Dept. of Pathology, [place], [place] SPECIMEN(S) SUBMITTED a - endometrium, biopsy [...] following with endocrinology, recommend office visit with manufacturing advisor to discuss stopping HRT in the setting of persistent postmenopausal bleeding. If we did discontinue HRT, reviewed that we could decrease estrogen strength to taper down. Plan as below: - pt to make appt with endocrinology to discuss stopping HRT in setting of monthly vaginal bleeding - f/u with economic development manager in 3 mo after endocrinology --> recommendation to taper and then stop HRT Patient plan was formulated with Dr. Nunez, attending colorman Lucy Shepard MD PGY1 01/09/2021 Genoveva Nunez [...] Appointment Radiology Maile Hinojosa MD [facility] [address] [place], [place] [address] (Wo rk) 07/13/2022 Office Visit Endocrinology Maile Hinojosa MD [facility] [address] [place], [place] [address] (Wo rk) 07/25/2022 Office Visit Pulmonology Tong Norman MD [facility] Pulmonary Medici [place], [place] [address] (Wo rk) documented as of this encounter Visit Diagnoses Diagnosis Perimenopause Symptomatic menopausal or female climact w[place] documented in this encounter Care Teams Ditch Rider Relationship Specialty Start Date End Date Janet Davey APRN PCP - General Family Medicine 07/13/20 [address] [place] [address] documented as of this encounter
--- OUTSIDE RECORDS SUMMARY | 2022-05-31 15:08 | XMS_ITS | Encounter Summary ---
:1965 Author Organization [facility] [place] [address] Care Team Providers Name Role Phone Janet Davey APRN Primary Care Provider Reason for Visit Reason Comments Medication Refill Encounter Details Date Type Department Care Team Description 09/05/2021 Refill Obstetrics and Gynecology at [facility], Genie Mcintosh APRN [id number] [place] [phone] Social History Tobacco Use Types Packs/Day [...] Description 07/13/2022 Appointment Radiology Maile Hinojosa MD [facility] ER ENDOCRINOLOGY [place], [place] [address] (Wo rk) 07/13/2022 Office Visit Endocrinology Maile Hinojosa MD [facility] ER DR [place], [place] [address] (Wo rk) 07/25/2022 Office Visit Pulmonology Tong Norman MD [facility] er Pulmonary Mediceduardo [place], [place] [address] (Wo rk) documented as of this encounter Visit Diagnoses Not on filedocumented in this encounter Care Teams Stock Worker Relationship Specialty Start Date End Date Janet Davey APRN PCP - General Family Medicine 07/13/20 [address] [place] [address] documented as of this encounter
--- OUTSIDE RECORDS SUMMARY | 2022-05-31 15:08 | XMS_ITS | Encounter Summary ---
:1965 Author Organization [facility] [place] [address] Care Team Providers Name Role Phone Janet Davey Isa GONCALVES Primary Care Provider Encounter Details Date Type Department Care Team Description 05/17/2022 Orders Only [place] [facility] [place] Michael Jr., MD [facility] [place] [phone] UROLOGY DEPT. [phone] [place], [place] [address] (Wo rk) Social History Tobacco [...] Hinojosa MD [facility] ER [address] [place], [place] [address] (Wo rk) 07/13/2022 Office Visit Endocrinology Maile Hinojosa MD [facility] ER ENDOCRINOLOGY [place], [place] [address] (Wo rk) 07/25/2022 Office Visit Pulmonology Tong Norman MD [facility] Pulmonary Medici [place] [address] (Wo rk) documented as of this encounter Visit Diagnoses Not on filedocumented in this encounter Care Teams Sole Seamer Relationship Specialty Start Date End Date Janet Davey APRN PCP - General Family Medicine 07/13/20 [address] [place] [address] documented as of this encounter
--- OUTSIDE RECORDS SUMMARY | 2022-05-31 15:08 | XMS_ITS | Encounter Summary ---
:1965 Author Organization [facility] [place] [address] Care Team Providers Name Role Phone Janet Davey SACHA Primary Care Provider Reason for Visit Reason Comments Nephrolithiasis Encounter Details Date Type Department Care Team Description 04/10/2022 Office Visit [place]rology [place] [facility] [place] Ferdinand Michael Jr., Nephrolithiasis [facility] [place] [address] [facility] [phone] UROLOGY DEPT. [place], [place] [address] (Wo rk) Social History Tobacco [...] Description 07/13/2022 Appointment Radiology Maile Hinojosa MD [facility] [address] [place], [place] [address] (Wo rk) 07/13/2022 Office Visit Endocrinology Maile Hinojosa MD [facility] [address] [place], [place] [address] (Wo rk) 07/25/2022 Office Visit Pulmonology Tong Norman MD [facility] Pulmonary Medici ne [place], [place] [address] (Wo rk) Scheduled Orders Name Type Priority Associated Diagnoses Order S chedule US Retroperitoneal Complete Imaging Routine Nephrolithias is Expected: 04/10/2023, Exp ires: 04/10/2023 documented as of this encounter Visit Diagnoses Diagnosis Nephrolithiasis Calculus of kidney documented in this encounter Care Teams Anesthetist Relationship Specialty Start Date End Date Janet Davey APRN PCP - General Family Medicine 07/13/20 [address] [place] [address] documented as of this encounter
--- OUTSIDE RECORDS SUMMARY | 2022-05-31 15:08 | XMS_ITS | Encounter Summary ---
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 syndrome Juan Dotson MD [facility] Pulmonary Rehab [facility] [place] [address] [place] [address] Referral ID Status Reason Start Expiration Visits Visits Date Date Requested Authorized [id number] Authorized Evaluate and 05/29/2022 05/29/2023 36 36 Treat Reason for Visit Consultation (Routine) - Authorized Specialty Diagnoses / Procedures Referred By Contact Refer red To Contact Infectious Diseases Diagnoses Post covid-19 condition, unspecified Janet Davey APRN [facility] [address] [place] [address] [place] [address] Phone: Fax: Referral ID Status Reason Start Expiration Visits Visits Date Date Requested Authorized [id number] Authorized Consult, 05/09/2022 05/09/2023 12 12 Test & Treat PCP Updated and/or Approved Encounter Details Date Type Department Care Team Description 05/29/2022 TH Visit Infectious Disease [place], Post-COVI D syndrome (Primary Dx); (TeleHealth) at [facility] [place] Juan *History of COVID-19; [facility] Post-COVI D chronic cough; [facility] [address] Post-COVID chronic dyspnea; [place], [place] INFECTIOUS Persistent dysp maría after COVID-19; [id number] DISEASE Persistent fatigue after COVID-19 [place], [place] [address] Social History Tobacco Use Types [...] Pulse 72 04/24/2022 8:41 AM EDT Temperature - - Respiratory Rate 18 04/24/2022 8:41 AM EDT Oxygen Saturation - - Inhaled Oxygen Concentration - - Weight 68.9 kg (152 lb) 04/24/2022 8:41 AM EDT Height 172.7 cm (5' 8) 04/24/2022 8:41 AM EDT Body Mass Index 23.11 04/24/2022 8:41 AM EDT documented in this encounter Progress Notes Juan Dotson MD - 05/29/2022 9:00 AM EDT Post-Acute COVID Syndrome Clinic Note We are asked by Ms. Davey to see this 56 y.o. female for evaluation of post-acute COVID syndrome. Date of acute COVID-19: November, SARS-CoV-2 test results: Positive home antigen test 12/17/2021. Description of acute illness: From medical record: dyspnea, cough, sore throat, fatigue, chest pain.Ongoing symptoms of dyspnea, cough, fatigue. Seen by Neurology, Pulmonology, Cardiology. Evaluation has included: ?? Chest x-ray normal, 12/20[address] ?? Chest CT scan normal, 12/2021 (not a CTA) ?? PFTs normal, no bronchodilator response, 02/09/2022 ?? Echocardiogram normal, 12/2021 ?? 48-hour Holter normal ?? Cardiac stress test normal, 02/2022 Present illness: Ms. Alrbight continues to struggle from several, persistent symptoms, six months after her episode of COVID-19. Foremost among them are fatigue, dyspnea on exertion, chest discomfort, nausea, and palpitations. Over the past few months her fatigue has improved, to the point that she is able to return to work, but her fatigue is constant, and she becomes exhausted after any significantamount of physical exertion. (Her stated degree of fatigue contradicts what she had entered when completing her Fatigue Assessment Scale.) In terms of her respiratory symptoms, she says that exertion is a big deal, and it often feels like I cannot get enough air. She continues to use oxygen when she is exerting herself because if she does not, she becomes short of breath and notes a decrease in her oxygen saturation. She describes her chest discomfort as tightness, but otherwise difficult to describe. She continues to have a nonproductive cough and annoying postnasal drip. She had been having palpitations, and occasionally she senses a very slow heart rate, but these symptoms have improved over the past few months. She has occasional nausea for which she takes Zofran as needed. 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 Albright is also taking care of her mother and her family due to her mother's illness. She lives with her , who has been sort of supportive, and her granddaughter. She had been getting physical therapy with Chantell Galvan, who is knowledgeable about post-COVID rehabilitation, but she had to interrupt therapy because of family needs. Ms. Albright goes to a chiropractor once a month and finds this helpful. She has been scheduled to undergo pulmonary rehabilitation and [place] but not until August; she has been doing belly breathing on her own. Ms. Albright informs me that she is scheduled to undergo a repeat cardiac test next week (a long echocardiogram). Vaccine status: J&J vaccine x 2. GABRIELE-7 Questionnaire Score Only 05/22/2022 GABRIELE-7 Score (Patient) 1 (Minimal Anxiety) PHQ9 Score 05/22/2022 Total PHQ-9 4 (Minimal Depression) Fatigue Assessment Scale: Fatigue Assessment Scale (FAS) 05/22/2022 1. I am bothered by fatigue Never 2. I get tired very quickly Sometimes 3. I don't do much during the day Never 4. I don't have enough energy for every day life Sometimes 5. Physically, I feel exhausted Always 6. I have problems starting things Never 7. I have problems thinking clearly Sometimes 8. I feel no desire to do anything Never 9. Mentally, I feel exhausted Sometimes 10. When I am doing something, I can concentrate quite well Often FATIGUE ASSESSMENT SCALE SCORE 21 In the past 7 days, did you need help from others to take care of any of the following activities? No, I do not have difficulty with these activities, I do not need any help Patient Active Problem List Diagnosis ??? Post-COVID syndrome ??? *History of COVID-19 November,. ??? Forgetfulness Followed yearly by Neurology (preceded COVID-19). ??? Hormone replacement therapy (postmenopausal) HRT start: 2013. Current HRT: Estradiol patch 0.1mg twice weekly Methods tried: Estradiol patch, Mirena IUD (placed 04/2016) Last labs: Lipids 02/12/2022. The 10-year ASCVD risk score ([facility] SUE Jr., et al., 2013) is: 1.3% Values used to calculate the score: Age: 56 years Sex: Female Is Non- : No Diabetic: No Tobacco smoker: No Systolic Blood Pressure: 97 mmHg Is BP treated: No HDL Cholesterol: 75 mg/dL Total Cholesterol: 205 mg/dL Last BP: 97/62 (02/12/2022) ??? Hot flashes, menopausal ??? Asthma ??? Nephrolithiasis ??? Raynaud's disease ??? Migraines Outpatient Encounter Medications as of 05/29/2022 Medication Sig Dispense Refill ??? ondansetron ODT (Zofran-ODT) 4 mg Tablet, Rapid Dissolve TAKE 1 TABLET BY MOUTH EVERY 8 HOURS FOR NAUSEA AND VOMITING NEEDED ??? oxyCODONE (Roxicodone) 5 mg Tablet Take 5 mg by mouth every 6 hours as needed. ??? tamsulosin (Flomax) 0.4 mg Capsule Take 1 capsule by mouth daily. 30 tablet 0 ??? ondansetron (Zofran) 4 mg Tablet Take 4 mg by mouth every 8 hours as needed. ??? omeprazole (PriLOSEC) 20 mg Capsule, Delayed Release(E.C.) TAKE 1 CAPSULE BY MOUTH EVERY DAY 30 MINUTES BEFORE EATING ??? ProChamber Spacer USE DIRECTED WITH INHALER ??? Allergy Relief, fexofenadine, 180 mg Tablet SWALLOW 1 TABLET BY MOUTH WHOLE WITH WATER ONCE A DAY DO NOT TAKE WITH FRUIT JUICES ??? benzonatate (Tessalon) 100 mg Capsule Take 100 mg by mouth 3 times daily as needed. ??? Symbicort 160-4.5 mcg/actuation HFA Aerosol Inhaler Inhale 2 puffs into the lungs 2 times daily. ??? estradioL (Lia) 0.1 mg/24 hr Patch Semiweekly Change 1 patch on the skin twice a week. 8 patch12 ??? chlorthalidone (Hygroten) 25 mg Tablet Take 1 tablet by mouth daily. (Patient not taking: Reported on 04/10/2022) 90 tablet 3 ??? calcium carbonate/vitamin D3 [...] azelastine (ASTELIN) 137 mcg (0.1 %) Aerosol, Weldon instill 1 spray into each nostril twice a day 0 ??? SUMAtriptan (IMITREX) 100 mg Tablet as needed for Migraine. 1 ??? hydrocortisone (WESTCORT) 0.2 % Cream Apply topically as needed. ??? multivitamin (THERAGRAN) tablet Take 1 tablet by mouth daily. ??? montelukast (SINGULAIR) 10 mg tablet Take 10 mg by mouth every morning. ??? albuterol (ACCUNEB) 0.63 mg/3 mL nebulizer solution No facility-administered encounter medications on file as of 05/29/2022. Allergies Allergen Reactions ??? Grass Pollen-[place], Standard Other (See Comments) Runny nose, itching, sneezing ??? Mold Extracts Other (See Comments) Sneezing and runny nose Exam Vitals From outside office visit March, Flowsheet Row TH Visit (TeleHealth) from 05/29/2022 in Infectious Disease at [facility] Weight 68.9 kg (152 lb) Height 172.7 cm (5' 8) BSA (Calculated - sq m) 1.82 sq meters BMI (Calculated) 23.11 Heart Rate 72 Resp 18 BP 102/56 Constitutional: Appearance: Normal appearance. Not ill-appearing. Eyes: Extraocular Movements: Extraocular movements intact. Musculoskeletal: Cervical back: Normal range of motion. Neurological: Mental Status: Alert and oriented to person, place, and time. Cranial Nerves: Cranial nerves are intact. Psychiatric: Attention and Perception: Attention normal. Mood and Affect: Slightly depressed but appropriate for thought content. Speech: Speech fluent. Behavior: Behavior normal. Thought Content: Thought content normal. Cognition and Memory: Cognition and memory grossly normal, but limited evaluation during this videovisit.. Laboratory No recent CBC results available. Lab Results Component Value Date NA 141 04/19/2022 K 3.9 04/19/2022 CL 105 04/19/2022 BUN 15 03/15/2017 CREATININE 0.9 04/19/2022 GLUCOSE 93 03/15/2017 No results found for: BILITOT, AST, ALT, ALKPHOS Additional Lab Results ??? Normal D-dimer 01/2022 Impression/Plan Ms. Albright is suffering from constant fatigue, postexertional exhaustion, chest tightness, and dyspnea on exertion, six months after her episode of COVID- 19. She has undergone an extensive work-up byCardiology and Pulmonology, including normal radiographs, PFTs, echocardiogram, Holter monitor, and stress test. Fatigue (especially postexertional), and dyspnea on exertion are among the most common symptoms of long COVID. We discussed the fact that tesst of cardiac and pulmonary function are usuallynormal in this situation, yet patients feel that they cannot get enough air. Ms. Albright monitors heroxygen saturation and feels that low oxygen levels correspond to her sense of dyspnea. In light of the negative tests to date, I do not know the basis for her measured hypoxia. Many patients with long COVID sense that they are hypoxic but have normal oxygen saturations, and the reliability and utilityof monitoring one's oxygen saturations in long COVID has been questioned. Nevertheless, given that Ms. Albright sees a correlation between her apparent O2 levels and her dyspnea, it is possible that she has some structural abnormality that has not been detected by studies performed to date. Her echocardiogram, which was done just two weeks after her acute episode, suggested right heart strain, so perhaps she had pulmonary emboli or now has some element of ongoing pulmonary vascular compromise. Perhapsthis is the target of next week's planned test. Ms. Albright has a normal D-dimer in January, so she is unlikely to have ongoing coagulopathy. Anticoagulants are being studied for treatment of long COVID but there is not a consensus that they are of benefit (and of course, they carry a risk). I would be interesting to learn the results of the repeat echocardiogram that is scheduled for next week I encouraged Ms. Albright to resume physical therapy, and I think that she would benefit from pulmonary rehab as well. In light of the fact that her appointment in [place] is not till August, I took the liberty of referring her to our Pulmonary department for rehabilitation (although Ms. Albrightmay not be able to attend these visits because of her distance from [facility] We reviewed the fact thatphysical therapy for long COVID patients has to be carefully limited so as not to result in post-exertional exhaustion. I informed Ms. Albright that there is no specific treatment for persistent post- acute COVID symptoms, but we discussed symptom management and rehabilitation. The patient seemed reassured by my comments, in particular my validation of her symptoms and my reassurance that most patients do gradually improve over time. She has already improved a good deal, so I would be optimistic about the prospects for complete recovery. I informed Ms. Albright about our research study, [facility] Post-Acute COVID Syndrome Clinic Registry. I explained the purpose of the study -- to better understand the epidemiology, treatmentand prognosis of PACS -- and that it requires us to collect protected health care information. I reviewed the Verbal Consent Script with the patient. Ms. Albright had the opportunity to ask questions andgave verbal consent to participate in this study. I spent a total of 90 minutes with the patient, including my review of internal and outside medical records prior to the visit. documented in this encounter Plan of Treatment Upcoming Encounters Date Type Specialty Care Team Description 07/13/2022 Appointment Radiology Maile Hinojosa MD [facility] [address] [place], [place] [address] (Wo rk) 07/13/2022 Office Visit Endocrinology Maile Hinojosa MD [facility] [address] [place], [place] [address] (Wo rk) 07/25/2022 Office Visit Pulmonology Tong Norman MD [facility] Pulmonary Medici [place], [place] [address] (Wo rk) Scheduled Referrals Name Type Priority Associated Diagnoses Order S chedule Referral to Outpatient Referral Routine Post-COVID chronic Or dered: Pulmonary Rehab cough 05/29/2022 Post-COVID chronic dyspnea Post-COVID syndrome documented as of this encounter Procedures Procedure Name Priority Date/Time Associated Diagnosis Comme nts EXTERNAL LAB CBC CMP Routine 04/19/2022 Results for this THYROID RESULTS PANEL proced ure are in the results section . documented in this encounter Results CBC / CMP / Thyroid External Results (04/19/2022) P athologist Signature Sodium 141 Potassium 3.9 Chloride 105 CO2 30 Creatinine 0.9 Glucose Lvl 85 Specimen (Source) Anatomical Location Collection Method / Collectio n Time Received Time / Laterality Volume 04/19/2022 Historical Provider POINT OF CARE TEST ORDERABLE S documented in this encounter Visit Diagnoses Diagnosis Post-COVID syndrome - Primary *History of COVID-19 Post-COVID chronic cough Post-COVID chronic dyspnea Persistent dyspnea after COVID-19 Persistent fatigue after COVID-19 documented in this encounter Care Teams Jumpbasting Armhole Baster Relationship Specialty Start Date End Date Janet Davey APRN PCP - General Family Medicine 07/13/20 [address] [place] [address] documented as of this encounter
--- OUTSIDE RECORDS SUMMARY | 2022-05-31 15:08 | XMS_ITS | Encounter Summary ---
:1965 Author Organization [facility] [place] [address] Care Team Providers Name Role Phone Janet Davey Isa GONCALVES Primary Care Provider Encounter Details Date Type Department Care Team Description 03/28/2022 Episode Changes Infectious Disease at [facility], Nisha costello [facility] Victor Manuel cifuentes [facility] [place] [address] INFECTIOUS DISEASE [phone] [place], [place] [address] (Wo rk) Social History Tobacco [...] Hinojosa MD [facility] ER ENDOCRINOLOGY [place], [place] [address] (Wo rk) 07/13/2022 Office Visit Endocrinology Maile Hinojosa MD [facility] ENDOCRINOLOGY [place], [place] [address] (Wo rk) 07/25/2022 Office Visit Pulmonology Tong Norman MD [facility] Medical [facility] er Pulmonary Medici [place], [place] [address] (Wo rk) documented as of this encounter Visit Diagnoses Not on filedocumented in this encounter Care Teams Manager Bakery Relationship Specialty Start Date End Date Janet Davey, RISK LEAD PCP - General Family Medicine 07/13/20 [address] [place] [address] documented as of this encounter
--- OUTSIDE RECORDS SUMMARY | 2022-05-31 15:08 | XMS_ITS | Encounter Summary ---
:1965 Author Organization [facility] [place] [address] Care Team Providers Name Role Phone Janet Davey APRN Primary Care Provider Reason for Visit Reason Comments Follow-up Encounter Details Date Type Department Care Team Description 12/09/2020 Office Visit Obstetrics and Cece Graham vaginal Pap Gynecology at [facility], CNM smear [facility] [address] [place] [phone] Social History Tobacco Use Types Packs/Day Years [...] well. The estimated blood loss was minimal. Lens Assorter present for procedure. A/P: Stacy is a [...] MD [facility] [address] [place], [place] [address] (Wo rk) 07/13/2022 Office Visit Endocrinology Maile Hinojosa MD [facility] ENDOCRINOLOGY [place], [place] [address] (Wo rk) 07/25/2022 Office Visit Pulmonology Tong Norman MD [facility] Pulmonary Medici ne [place], [place] [address] (Wo rk) documented as of this encounter [...] 4:26 PM 4:26 EDT PM EDT Narrative [facility] - 12/09/2020 4:26 PM EDT Specimen requisition ordered. ??Separate Pathology report to follow Cece Graham CNM PATHOLOGY/CYTOLOGY ORDERABLE S Performing Organization Address City/State/[place] [address] Surgical Pathology Report (12/09/2020 4:00 PM EDT) Component Value Ref Test Analysis Performed At [facility] Range Method Time Signature Surgical [id number] ? Location: 5[facility] Report The signing pathologist has (i) [...] DO Verified: ??12/14/2020 11:13 ??Pathologist Performed at: ??-[facility] Dept. of Pathology, [place], [place] SPECIMEN(S) SUBMITTED a - endometrium, biopsy [...] Volume Laterality 12/09/2020 4:00 PM EDT Cece CHAVEZ PATHOLOGY/CYTOLOGY ORDERABLE S Performing Organization Address City/State/ZIP Code Phon e Number [place] [phone] [facility] [address] documented in this encounter Visit Diagnoses Diagnosis Abnormal vaginal Pap smear Abnormal glandular Papanicolaou smear of vagina documented in this encounter Care Teams Scientific Software Developer Relationship Specialty Start Date End Date Janet Davey, YOUTH MANAGER PCP - General Family Medicine 07/13/20 [address] [place] [address] documented as of this encounter
--- OUTSIDE RECORDS SUMMARY | 2022-05-31 15:08 | XMS_ITS | Encounter Summary ---
:1965 Author Organization [facility] [address] Care Team Providers Name Role Phone Janet Davey Isa GONCALVES Primary Care Provider Encounter Details Date Type Department Care Team Description 05/17/2022 Orders Only Urology at [facility] Luis Michael Jr., MD [facility] [place] [address] UROLOGY DEPT. [phone] [place], [place] [address] (Wo rk) Social History Tobacco [...] Description 07/13/2022 Appointment Radiology Maile Hinojosa MD [facility] ER [address] [place], [place] [address] (Wo rk) 07/13/2022 Office Visit Endocrinology Maile Hinojosa MD [facility] ER ENDOCRINOLOGY [place], [place] [address] (Wo rk) 07/25/2022 Office Visit Pulmonology Tong Norman MD [facility] Medical [facility] Pulmonary Medici [place] [address] (Wo rk) documented as of this encounter Visit Diagnoses Not on filedocumented in this encounter Care Teams Deputy Harbormaster Relationship Specialty Start Date End Date Janet Davey APRN PCP - General Family Medicine 07/13/20 [address] [place] [address] documented as of this encounter
--- OUTSIDE RECORDS SUMMARY | 2022-05-31 15:08 | XMS_ITS | Encounter Summary ---
:1965 Author Organization [facility] [place] [address] Care Team Providers Name Role Phone EdJanet mendez Isa GONCALVES Primary Care Provider Encounter Details Date Type Department Care Team Description 08/17/2021 Telephone Endocrinology at [facility] C Romy Rich, [place] [address] Social History Tobacco Use Types Packs/Day [...] copy be faxed. Electronically routed request to [phone] documented in this encounter Plan of Treatment Upcoming Encounters Date Type Specialty Care Team Description 07/13/2022 Appointment Radiology Maile Hinojosa MD [facility] ER DR ENDOCRINOLOGY [place], [place] [address] (Wo rk) 07/13/2022 Office Visit Endocrinology Maile Hinojosa MD [facility] ER ENDOCRINOLOGY [place], [place] [address] (Wo rk) 07/25/2022 Office Visit Pulmonology Tong Norman MD [facility] Pulmonary Medici ne [place], [place] [address] (Wo rk) documented as of this encounter Visit Diagnoses Not on filedocumented in this encounter Care Teams Business Strategy Manager Relationship Specialty Start Date End Date Janet Davey, GRIPS PCP - General Family Medicine 07/13/20 [address] [place] [address] documented as of this encounter
--- OUTSIDE RECORDS SUMMARY | 2022-05-31 15:08 | XMS_ITS | Encounter Summary ---
:1965 Author Organization [facility] [place] [address] Care Team Providers Name Role Phone EdJanet mendez Isa GONCALVES Primary Care Provider Reason for Visit Reason Comments Nephrolithiasis Encounter Details Date Type Department Care Team Description 07/13/2020 Office Visit Urology at [facility] Ferdinand Michael Nephrolithiasis ([facility] , Dx) [place], [place] CENTER [address] UROLOGY DEPT. [phone] [place] [id number] Social History Tobacco Use Types Packs/Day Years Used Date Never Smoker Smokeless Tobacco: Never Used Alcohol Use Standard Drinks/Week Comments No 0 (1 standard drink = 0.6 oz pure alcoho l) Sex Assigned at Date Recorded Female 01/29/2022 12:45 PM EDT documented as of this encounter Last Filed Vital Signs Vital Sign Reading Time Taken Comments Blood Pressure 121/77 07/13/2020 9:13 AM EST Pulse 80 07/13/2020 9:13 AM EST Temperature - - Respiratory Rate - - Oxygen Saturation - - Inhaled Oxygen Concentration - - Weight - - Height - - Body Mass Index - - documented in this encounter Progress Notes Deirdre Carrera MD - 07/13/2020 9:00 AM EST UROLOGY OUTPATIENT FOLLOW-UP HPI Ms. Jessica Gtz is a pleasant 54 y.o. female who returns for urologic follow-up [...] was resected and confirmed to be benignurothelium. She last saw Dr. Michael in 06/2019, at that time RBUS showed possible punctate left non-obstructing renal stone. In the interval since her last visit, she has been well from standpoint. She denies stone passage, suspected renal colic, hematuria, dysuria or other complaints. REVIEW OF SYSTEMS 07/13/2020 Constitutional None of the above Ear / [...] the above Genitourinary None of the above Past medical history: [...] respiratory distress. Abdominal: Soft. There is no abdominal tenderness. There is no rebound. Genitourinary: Genitourinary [...] This reveals no evidence of hydronephrosis, hydroureter, no stones. Impression/Plan: Doing well, no evidence of stones on today's RBUS. We will plan to see her in 1.5 years with an ultrasound at that time per patient preference. She has been instructed to call or return in the interval if new signs or symptoms of stone passage/renal colic should develop. This patient was seen in conjunction with Dr. Michael, Urology Attending. Deirdre Carrera MD Urology, PGY-3 STAFF ADDENDUM: I saw and examined Jessica Gtz with Dr. Carrera , have independently reviewedher u/s, and concur with history, exam, impression, and plan as noted and amended. FERDINAND MICHAEL JR, MD Ferdinand Michael Jr., MD - 07/13/2020 9:00 AM EST I saw and examined Jessica Gtz with Dr. Carrera and have independently reviewed her imaging studies. I agree with history, exam, impression, and plan as noted. Briefly, this very pleasant 54-year-old woman returns for urologic follow-up regarding history of recurrent nephrolithiasis. Her last intervention for stone was in July 2010. Although question is previously been raised of small lower pole stones on ultrasound, CTs had confirmed no new or residual stones. Ultrasound today again reveals no evidence of hydronephrosis, hydroureter, or stone. She denies interval any urinary symptoms or witnessed stone passage. She wishes to continue urologic surveillance follow-up, but is willing to extend the interval to every 18 months at this point. I asked her to call or return in the interval if new problems should arise. documented in this encounter Plan of Treatment Upcoming Encounters Date Type Specialty Care Team Description 07/13/2022 Appointment Radiology Maile Hinojosa MD [facility] ER ENDOCRINOLOGY [place], [place] [address] (Wo rk) 07/13/2022 Office Visit Endocrinology Maile Hinojosa MD [facility] DR MARMOLEJO [place], [place] [address] (Wo rk) 07/25/2022 Office Visit Pulmonology Tong Norman MD [facility] Pulmonary Medici [place], [place] [address] (Wo rk) documented as of this encounter Results US Retroperitoneal Complete (04/10/2022 10:23 AM EDT) Anatomical Region Laterality Modality Abdomen Ultrasound Specimen (Source) Anatomical Collection Method Collection Time Re ceived Time Location / / Volume Laterality 04/10/2022 10:06 AM EDT Impressions 04/10/2022 10:55 AM EDT 6 mm inferior nonobstructing renal ston e Otherwise within normal limits Electronically signed by: Lakeisha vieyra MD, [facility] ([phone]), at 10:46 AM Thank you for letting us participate in the care of this patient. If you are a [facility] and have any questions regarding this report, please contact the number above. For patients who have ques tions, please contact the [facility] professio nal that requested your imaging first. ??Lakeisha Aiken [facility] & Dept Chair - Rad Electronically Signed Final Report ?? 10:54 am Narrative 04/10/2022 10:55 AM EDT Renal ? (Signed Final 04/10/2022 10:54 am) PATIENT INFO: ID #: ? [id number] ?: ??[birth year] (56 yrs)(F) Name: ? JESSICA GTZ ?Visit Date: 04/10/2022 10:06 am PERFORMED BY: Performed By: ? Alo GARNER, Mathew lópez Attending: ?Nelli GILL, Adalberto Beltran Referred By: ?FERDINAND MICHAEL Location: ? [place] SERVICE(S) PROVIDED: URETRO - Retroperitoneal Complete - IMG 3517 ? [id number] INDICATIONS: kidney stone surveillance. no stones on [...] 10:54 am ) PATIENT INFO: ID #: [id number] : 61 (56 y rs)(F) Name: JESSICA GTZ Visit Date: 04/10 10:06 am PERFORMED BY: Performed By: Cece Prajapati RDMS Attending: Lakeisha Aiken MD Referred By: FERDINAND MICHAEL JR Location: [place] SERVICE(S) PROVIDED: URETRO - Retroperitoneal Complete - [facility] 3517 [address] INDICATIONS: kidney stone surveillance. no stones on [...] Electronically signed by: Lakeisha vieyra MD, Radiology [place] ([phone]), at 10:46 AM Thank you for letting us participate in the care of this patient. If you are a [facility] and have any questions regarding this report, please contact the number above. For patients who have ques tions, please contact the [facility] professio nal that requested your imaging first. Lakeisha Aiken, [facility] Dept C hair - Rad Electronically Signed Final Report 04/10 10:54 am Ferdinand Michael Jr., MD IMG US GEN ORDERABLES documented in this encounter Visit Diagnoses Diagnosis Nephrolithiasis - Primary Calculus of kidney Nephrolithiasis Calculus of kidney documented in this encounter Care Teams Retail Product Demo Specialist Relationship Specialty Start Date End Date Janet Davey, ELECTRONIC REPAIR TROUBLESHOOTER PCP - General Family Medicine 07/13/20 [address] [place] [address] documented as of this encounter
--- OUTSIDE RECORDS SUMMARY | 2022-05-31 15:08 | XMS_ITS | Encounter Summary ---
:1965 Author Organization [facility] [place] [address] Care Team Providers Name Role Phone EdJanet mendez Isa GONCALVES Primary Care Provider Encounter Details Date Type Department Care Team Description 05/03/2022 Telephone Pulmonology at [facility] [place] [address] Social History Tobacco Use Types Packs/Day [...] Maile Hinojosa MD [facility] ENDOCRINOLOGY [place], [place] [address] (Wo rk) 07/13/2022 Office Visit Endocrinology Maile Hinojosa MD [facility] DR MARMOLEJO [place], [place] [address] (Wo rk) 07/25/2022 Office Visit Pulmonology Tong Norman MD [facility] Pulmonary Medici ne [place], [place] [address] (Wo rk) documented as of this encounter Visit Diagnoses Not on filedocumented in this encounter Care Teams Licensed Embalmer Relationship Specialty Start Date End Date Janet Davey APRN PCP - General Family Medicine 07/13/20 [address] [place] [address] documented as of this encounter
--- OUTSIDE RECORDS SUMMARY | 2022-05-31 15:08 | XMS_ITS | Encounter Summary ---
:1965 Author Organization [facility] [place] [address] Care Team Providers Name Role Phone Janet Davey APRN Primary Care Provider Encounter Details Date Type Department Care Team Description 01/03/2022 Telephone Obstetrics and Gynecology at [address] [place], [place] [address] Social History Tobacco Use Types Packs/Day [...] Hinojosa MD [facility] ENDOCRINOLOGY [place], [place] [address] (Wo rk) 07/13/2022 Office Visit Endocrinology Maile Hinojosa MD [facility] ENDOCRINOLOGY [place], [place] [address] (Wo rk) 07/25/2022 Office Visit Pulmonology Tong Norman MD [facility] Pulmonary Medici ne [place], [place] [address] (Wo rk) documented as of [...] ovary. Electronically signed by: Weston mendosa MD, [facility] ([phone]), at 9:24 AM Thank you for letting us participate in the care of this patient. If you are a [facility] and have any questions regarding this report, please contact the number above. For patients who have ques tions, please contact the [facility] professio nal that requested your imaging first. ? Weston Martin, Staff Physician Electronically Signed Final Report ?? 09:31 am Narrative 02/12/2022 9:31 AM EDT Gynecological Report ?(Signed Final 02/12/2022 09:31 am) PATIENT INFO: ID #: ? [id number] ?: ??[birth year] (56 yrs)(F) Name: ? JESSICA ALBRIGHT ?Visit Date: 02/12/2022 07:57 am PERFORMED BY: Performed By: ? Desiree Burrell RDMS Attending: ?Veronica GILL, Butch Maloney Referred By: ?LUDY GRACE Location: ? [place] SERVICE(S) PROVIDED: UTV - Transvaginal - [id number] ?[id number] U3D - ??3D rendering with interpretatio mary - [id number] ? [id number] INDICATIONS: vaginal bleeding, IUD in place TECHNIQUE/SCAN [...] 01/25 09:31 am) PATIENT INFO: ID #: [id number] : 61 (56 y rs)(F) Name: JESSICA ALBRIGHT Visit Date: 02/12 07:57 am PERFORMED BY: Performed By: Desiree Burrell RDMS Attending: Weston Martin MD Referred By: LUDY GRACE Location: [place] SERVICE(S) PROVIDED: UTV - Transvaginal - [id number] [id number] U3D - 3D rendering with interpretation - [id number] INDICATIONS: vaginal bleeding, IUD in place TECHNIQUE/SCAN [...] ovary. Electronically signed by: Weston mendosa MD, [facility] ([phone]), at 9:24 AM Thank you for letting us participate in the care of this patient. If you are a [facility] and have any questions regarding this report, please contact the number above. For patients who have ques tions, please contact the [facility] professio nal that requested your imaging first. Weston Martin, Staff Physician Electronically Signed Final Report 02/12 09:31 am Ludy Grace MD IMG PELVIC ORDERABLES documented in this encounter Visit Diagnoses Diagnosis Vaginal bleeding Other specified noninflammatory disorder of vagina Vaginal bleeding Other specified noninflammatory disorder of vagina documented in this encounter Care Teams Bagging Machine Operator Relationship Specialty Start Date End Date Janet Davey, MEDIA BUYER PCP - General Family Medicine 07/13/20 [address] [place] [address] documented as of this encounter
--- OUTSIDE RECORDS SUMMARY | 2022-05-31 15:08 | XMS_ITS | Encounter Summary ---
:1965 Author Organization [facility] [place] [address] Care Team Providers Name Role Phone Janet Davey Isa GONCALVES Primary Care Provider Encounter Details Date Type Department Care Team Description 12/07/2021 Orders Only Obstetrics and Lucy Shepard, Gynecology at [facility] Azalea Hinton MD menopausal [facility] [address] [place], [place] OBSTETRICS & [address] GYNECOLOGY [phone] [place], [place] [address] (Wo rk) Social History Tobacco [...] Description 07/13/2022 Appointment Radiology Maile Hinojosa MD [facility] [address] [place], [place] [address] (Wo rk) 07/13/2022 Office Visit Endocrinology Maile Hinojosa MD [facility] [address] [place], [place] [address] (Wo rk) 07/25/2022 Office Visit Pulmonology Tong Norman MD [facility] Pulmonary Medici [place], [place] [address] (Wo rk) Scheduled Orders Name Type Priority Associated Diagnoses Order S chedule Lipid Panel (Reflex Lab Routine Hot flashes, menopaus al Expected: 12/07/2021 Direct LDL) (Approximate), Expires: 12/07/2022 documented as of this encounter Visit Diagnoses Diagnosis Hot flashes, menopausal Symptomatic menopausal or female climact [place] documented in this encounter Care Teams Hot Mill Tin Roller Relationship Specialty Start Date End Date Janet Davey, AUTO RADIATOR SPECIALIST PCP - General Family Medicine 07/13/20 [address] [place] [address] documented as of this encounter
--- OUTSIDE RECORDS SUMMARY | 2022-05-31 15:08 | XMS_ITS | Encounter Summary ---
:1965 Author Organization [facility] [address] Care Team Providers Name Role Phone Petar Janet Isa GONCALVES Primary Care Provider Encounter Details Date Type Department Care Team Description 11/10/2021 Hospital Encounter Mammography at [facility] Zuurbdaisy, Abnormal finding on [facility] Genoveva Tristan MD breast imaging [facility] [address] DIAGNOSTIC [phone] [place] [address] Social History Tobacco Use Types Packs/Day Years [...] spray 0 2016 mcg (0.1 %) Aerosol, [place] into each nostril twice a day SUMAtriptan [...] 07/13/2022 Appointment Radiology Maile Hinojosa MD [facility] ER ENDOCRINOLOGY [place], [place] [address] (Wo rk) 07/13/2022 Office Visit Endocrinology Maile Hinojosa MD [facility] ER ENDOCRINOLOGY [place], [place] [address] (Wo rk) 07/25/2022 Office Visit Pulmonology Tong Norman MD [facility] Pulmonary Medici ne [place], [place] [address] (Wo rk) documented as of [...] with their provider to determine their preferred [facility] screening schedule. * ??Women should report [...] who have questions please contact the health client care manager that requested your imaging first. ? Electronically signed by: Genoveva crawley MD, [facility] ([phone]), at 11/10/2021 1:35 PM Narrative 11/10/2021 1:35 [...] breast documented in this encounter Care Teams Music Professor Relationship Specialty Start Date End Date Janet Davey, SHOE RECONDITIONER PCP - General Family Medicine 07/13/20 [address] [place] [address] documented as of this encounter
--- OUTSIDE RECORDS SUMMARY | 2022-05-31 15:08 | XMS_ITS | Encounter Summary ---
:1965 Author Organization [facility] [place] [address] Care Team Providers Name Role Phone Petar Janet Moss APRN Primary Care Provider Encounter Details Date Type Department Care Team Description 01/09/2021 Hospital Encounter Ultrasound at [facility] Saul Graham Endometrial polyp [facility] H, [place] [address] [place] [address] [phone] Social History Tobacco Use Types Packs/Day Years [...] (0.1 %) Aerosol, each nostril twice a [place] day SUMAtriptan (IMITREX) as needed for 1 [...] 05/01/2016 05/01/2021 20 mcg/24 hr (5 years) [id number] IUD cetirizine (ZYRTEC) 10 Take 10 mg by mouth 0 02/12/2022 mg tablet daily. tacrolimus (PROTOPIC) 1 Appl(s) Top Twice 0 08/2402/12/2022 0.1 % ointment daily KETOCONAZOLE (NIZORAL Apply topically. 0 08/24/20 10 02/12/2022 TOP) documented as of this encounter Plan of Treatment Upcoming Encounters Date Type Specialty Care Team Description 07/13/2022 Appointment Radiology Maile Hinojosa MD [facility] [address]MO[address] [place], [place] [address] (Wo rk) 07/13/2022 Office Visit Endocrinology Miale Hinojosa MD [facility] [address] [place], [place] [address] (Wo rk) 07/25/2022 Office Visit Pulmonology Tong Norman MD [facility] Pulmonary Medici ne [place], [place] [address] (Wo rk) documented as of [...] have questions please contact the health career development manager that requested your imaging first. Electronically signed by: Genie Carrasco MD, [facility] ([phone]), at 2:23 PM Thank you for letting us participate in the care of this patient. If you are a health care [facility] er and have any questions regarding this report, please contact the number below. For patients who have ques tions, please contact the [facility] lirba that requested your imaging first. ? Genie Carrasco, Staff Physician Electronically Signed Final Report ?? 02:30 pm Narrative 01/09/2021 2:30 PM EDT Gynecological Report ?(Signed Final 01/09/2021 02:30 pm) PATIENT INFO: ID #: ? [id number] ?: ??[birth year] (55 yrs)(F) Name: ? JESSICA GTZ ?Visit Date: 01/09/2021 01:51 pm PERFORMED BY: Performed By: ? Keya Hedrick RDMS Attending: ?Luna GILL, Genie Dumont Referred By: ?SAUL Eddy Location: ? [place] SERVICE(S) PROVIDED: UTV - Transvaginal - [id number] ?[id number] U3D - ??3D rendering with interpretatio n - [id number] ? [id number] INDICATIONS: ? polyp TECHNIQUE/SCAN QUALITY: Technique: ?Transducer [...] 12/24 02:30 pm) PATIENT INFO: ID #: [id number] : [birth year] (55 y rs)(F) Name: JESSICA GTZ Visit Date: 01/09 01:51 pm PERFORMED BY: Performed By: Chetna Hedrick RDMS Attending: Genie Carrasco MD Referred By: SAUL GRAHAM Location: [place] SERVICE(S) PROVIDED: UTV - Transvaginal - [id number] U3D - 3D rendering with interpretation - [id number] INDICATIONS: ? polyp TECHNIQUE/SCAN QUALITY: Technique: Transducer [...] have questions please contact the health career development manager that requested your imaging first. Electronically signed by: Genie Carrasco MD, [facility] ([phone]), at 2:23 PM Thank you for letting us participate in the care of this patient. If you are a health care provid er and have any questions regarding this report, please contact the number below. For patients who have ques tions, please contact the [facility] care professio [facility] that requested your imaging first. Genie Carrasco, Staff Physician Electronically Signed Final Report 01/09 02:30 pm Saul H Gladys CNM IMG US PELVIC ORDERABLES documented in this encounter Visit Diagnoses Diagnosis Endometrial polyp Polyp of corpus uteri documented in this encounter Care Teams Product Accountant Relationship Specialty Start Date End Date Janet Davey APRN PCP - General Family Medicine 07/13/20 [address] [place] [address] documented as of this encounter
--- OUTSIDE RECORDS SUMMARY | 2022-05-31 15:08 | XMS_ITS | Encounter Summary ---
:1965 Author Organization [facility] [place] [address] Care Team Providers Name Role Phone Janet Davey Isa GONCALVES Primary Care Provider Encounter Details Date Type Department Care Team Description 01/08/2022 Ancillary Procedure Radiology Library at Tong Norman MD [facility] [place] [address] [place] [address] [phone] (Wo rk) Social History Tobacco Use Types [...] MD [facility] ER ENDOCRINOLOGY [place], [place] [address] (Wo rk) 07/13/2022 Office Visit Endocrinology Maile Hinojosa MD [facility] ENDOCRINOLOGY [place], [place] [address] (Wo rk) 07/25/2022 Office Visit Pulmonology Tong Norman MD [facility] er Pulmonary Mediceduardo [place], [place] [address] (Wo rk) documented as of this encounter Procedures Procedure Name Priority Date/Time Associated Diagnosis Comme nts FILM LIBRARY Routine 01/08/2022 12:00 AM Results for this STORAGE ONLY CT EDT procedure ar e in CHEST the results section. documented in this encounter Results Film Library- Storage Only CT Chest (01/08/2022 12:00 AM EDT) Specimen (Source) Anatomical Location Collection Method / Collectio n Time Received Time / Laterality Volume Narrative [facility] - 05/03/2022 4:03 PM EDT This exam is auto-finalizing. It's purpo se is for storage only. Tong Norman MD IMG FILM LIBRARY ORDERABLES Performing Organization Address City/State/ZIP Code Phon e Number [place], [place] documented in this encounter Visit Diagnoses Not on filedocumented in this encounter Care Teams Benefits Consultant Relationship Specialty Start Date End Date Janet Davey APRN PCP - General Family Medicine 07/13/20 [address] [place] [address] documented as of this encounter
--- OUTSIDE RECORDS SUMMARY | 2022-05-31 15:08 | XMS_ITS | Encounter Summary ---
:1965 Author Organization [facility] [place] [address] Care Team Providers Name Role Phone Edvanessa Janet Vanessa GONCALVES Primary Care Provider Encounter Details Date Type Department Care Team Description 02/12/2022 Hospital Encounter Ultrasound at [facility] Ludy Grace MD Vaginal bleeding [facility] [address] [place], [place] OBSTETRICS AND [id number] GYNECOLOGY [phone] [place], [place] [address] Social History Tobacco Use Types [...] 8 hours as needed. omeprazole (PriLOSEC) 20 TAKE 1 CAPSULE BY 0 12/25 mg Capsule, Delayed MOUTH EVERY DAY 30 Release(E.C.) MINUTES BEFORE EATING ProChamber Spacer USE DIRECTED 0 12/25/2021 WITH INHALER Symbicort 160-4.5 Inhale 2 puffs into 0 05/31/202 2 mcg/actuation HFA Aerosol the lungs 2 times Inhaler daily. estradioL (Lia) 0.1 Change 1 patch on 8 patch 12 022 mg/24 hr Patch Semiweekly the skin twice a week. calcium carbonate/vitamin Take by mouth 0 D3 [...] spray 0 2016 mcg (0.1 %) Aerosol, [place] into each nostril twice a day SUMAtriptan [...] 3 08/2805/29/2022 25 mg Tablet mouth daily. documented as of this encounter Plan of Treatment Upcoming Encounters Date Type Specialty Care Team Description 07/13/2022 Appointment Radiology Maile Hinojosa MD [facility] ER [address] [place], [place] [address] (Wo silva) 07/13/2022 Office Visit Endocrinology Maile Hinojosa MD [facility] ER DR [place]EL [place], [place] [address] (Rahul ascencio) 07/25/2022 Office Visit Pulmonology Tong Norman MD [facility] er Pulmonary Medici [place], [place] [address] ( rk) documented as of [...] ovary. Electronically signed by: Weston mendosa MD, [facility] ([phone]), at 9:24 AM Thank you for letting us participate in the care of this patient. If you are a [facility] and have any questions regarding this report, please contact the number above. For patients who have ques tions, please contact the [facility] professio nal that requested your imaging first. ? Weston Martin, Staff Physician Electronically Signed Final Report ?? 09:31 am Narrative 02/12/2022 9:31 AM EDT Gynecological Report ?(Signed Final 02/12/2022 09:31 am) PATIENT INFO: ID #: ? [id number] ?: ??[birth year] (56 yrs)(F) Name: ? JESSICA GTZ ?Visit Date: 02/12/2022 07:57 am PERFORMED BY: Performed By: ? Desiree Burrell RDMS Attending: ?Veronica GILL, Butch Maloney Referred By: ?LUDY GRACE Location: ? [facility] SERVICE(S) PROVIDED: UTV - Transvaginal - [id number] ?[id number] U3D - ??3D rendering with interpretatio n - [id number] ? [id number] INDICATIONS: vaginal bleeding, IUD in place TECHNIQUE/SCAN [...] 01/25 09:31 am) PATIENT INFO: ID #: [id number] : [birth year] (56 y rs)(F) Name: JESSICA GTZ Visit Date: 02/12 07:57 am PERFORMED BY: Performed By: Desiree Burrell RDMS Attending: Weston Martin MD Referred By: LUDY GRACE Location: [facility] SERVICE(S) PROVIDED: UTV - Transvaginal - [id number] [id number] U3D - 3D rendering with interpretation - [id number] INDICATIONS: vaginal bleeding, IUD in place TECHNIQUE/SCAN [...] Electronically signed by: Weston mendosa MD, Rad[facility] [place] ([phone]), at 9:24 AM Thank you for letting us participate in the care of this patient. If you are a [facility] and have any questions regarding this report, please contact the number above. For patients who have ques tions, please contact the [facility] professio nal that requested your imaging first. Weston Martin, Staff Physician Electronically Signed Final Report 02/12 09:31 am Ludy Grace MD IMG PELVIC ORDERABLES documented in this encounter Visit Diagnoses Diagnosis Vaginal bleeding Other specified noninflammatory disorder of vagina documented in this encounter Care Teams Milk Treater Relationship Specialty Start Date End Date Janet Davey, BANKRUPTCY LAW SPECIALIST PCP - General Family Medicine 07/13/20 [address] [place] [address] documented as of this encounter
--- OUTSIDE RECORDS SUMMARY | 2022-05-31 15:08 | XMS_ITS | Encounter Summary ---
:1965 Author Organization [facility] [place] [address] Care Team Providers Name Role Phone Janet Davey APRN Primary Care Provider Reason for Visit Reason Comments Medication Refill Encounter Details Date Type Department Care Team Description 10/16/2020 [facility] Victor Manuel cifuentes OBSTETRICS & [place] [address] [place] [address] [phone] (Wo rk) Social History Tobacco Use Types [...] Description 07/13/2022 Appointment Radiology Maile Hinojosa MD [facility] [address] MARMOLE[address] [place], [place] [address] (Wo rk) 07/13/2022 Office Visit Endocrinology Maile Hinojosa MD [facility] ENDOCRINOLOGY [place], [place] [address] (Wo rk) 07/25/2022 Office Visit Pulmonology Tong Norman MD [facility] Pulmonary Medici [place] [address] (Wo rk) documented as of this encounter Visit Diagnoses Not on filedocumented in this encounter Care Teams Assembler Fishing Floats Relationship Specialty Start Date End Date Janet Davey APRN PCP - General Family Medicine 07/13/20 [address] [place] [address] documented as of this encounter
--- OUTSIDE RECORDS SUMMARY | 2022-05-31 15:08 | XMS_ITS | Encounter Summary ---
:1965 Author Organization [facility] [place] [address] Care Team Providers Name Role Phone Janet Davey Isa GONCALVES Primary Care Provider Encounter Details Date Type Department Care Team Description 09/25/2021 Orders Only Endocrinology at [facility] Maile Mccurdy MD Hypercalciuria [facility] [place] [address] ENDOCRINOLOGY [place], [place] [address] (Rahul rk) Social History Tobacco [...] Radiology Maile Hinojosa MD [facility] ER DR MARMOLEJO [place], [place] [address] (Wo rk) 07/13/2022 Office Visit Endocrinology Maile Hinojosa MD [facility] DR MARMOLE[address] [place], [place] [address] (Wo rk) 07/25/2022 Office Visit Pulmonology Tong Norman MD [facility] Medical [facility] Pulmonary Medici [place] [address] (Wo rk) documented as of this encounter Visit Diagnoses Diagnosis 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
--- OUTSIDE RECORDS SUMMARY | 2022-05-31 15:08 | XMS_ITS | Encounter Summary ---
:1965 Author Organization [facility] [place] [address] Care Team Providers Name Role Phone EdJanet mendez Isa GONCALVES Primary Care Provider Encounter Details Date Type Department Care Team Description 12/05/2021 Telephone Obstetrics and Gynecology Paty Shepard, at [facility] [place] [address] OBSTETRICS & GYNECOLOGY [phone] [place], [place] [address] (Wo rk) Social History Tobacco [...] if she can do fasting labs in [facility], or day of the appointment. I reviewed [...] Plan above reviewed with Dr. Zabala, attending spoilage worker. Lucy Shepard MD PGY2 Lace Paper Machine Operator documented in this encounter Plan of Treatment Upcoming Encounters Date Type Specialty Care Team Description 07/13/2022 Appointment Radiology Maile Hinojosa MD [facility] [address] MARMOLEJO [place], [place] [address] (Wo rk) 07/13/2022 Office Visit Maile Matson MD [facility] [address]MOLE[address] [place], [place] [address] (Wo rk) 07/25/2022 Office Visit Pulmonology Tong Norman MD [facility] Pulmonary Medici [place], [place] [address] (Wo rk) documented as of this encounter Results Lipid Panel (Reflex Direct LDL) (02/12/2022 8:35 AM EDT) athologist Signature Chol, Total 205 mg/dL [facility] Comment: Lower Risk: <200 mg/dL Average Risk: 200-239 mg/dL Higher Risk: >vx=582 mg/dL Triglycerides 86 mg/dL [facility] Comment: Average Risk/Lower Risk: <150 mg/dL Borderline High Risk: 150-199 mg/dL High Risk: 200-499 mg/dL Very High Risk: >jq=945 mg/dL HDL 75 mg/dL [facility] Comment: Males: ?? Higher Risk: <40 mg/dL Females: ?? Higher Risk: <50 mg/dL LDL Cholesterol 113 mg/dL [facility] Comment: Lowest Risk: <100 mg/dL Lower Risk: 100-129 mg/dL Borderline High Risk: 130-159 mg/dL High Risk: 160-189 mg/dL Very High Risk: >tr=728 mg/dL Chol/HDL Ratio 2.7 ratio [facility] Lipid Interpretation See Note [facility] Comment: Lipid management should be guided by a p atient? s ASCVD risk, goals and preferences. ACC/AHA Guidelines recommend high intens ity statin if clinical ASCVD or LDL greater than or equal to 190 mg/dL. http://Sterio.me.[employer]/LTL-RPV-Hbhmwfbhs Adults aged 40-75 with LDL 70-189 mg/dL should have their 10 year ASCVD risk estimated with the ACC/AHA ASCVD risk es timator http://tools.acc.org/TSRGH-Yprn-Ikgwcwab r/ Statin should be discussed if risk [...] Organization Address City/State/[place] [address] documented in this encounter Visit Diagnoses Diagnosis Hot flashes, menopausal Symptomatic menopausal or female climact [place] Hormone replacement therapy (HRT) documented in this encounter Care Teams Senior Dynamics Crm Developer Relationship Specialty Start Date End Date Janet Davey APRN PCP - General Family Medicine 07/13/20 [address] [place] [address] documented as of this encounter
--- OUTSIDE RECORDS SUMMARY | 2022-05-31 15:08 | XMS_ITS | Encounter Summary ---
:1965 Author Organization [facility] [place] [address] Care Team Providers Name Role Phone Petar Janet Isa GONCALVES Primary Care Provider Encounter Details Date Type Department Care Team Description 06/12/2021 Telephone Obstetrics and Gynecology [place] [address] Social History Tobacco Use Types Packs/Day [...] call to discuss her visit with her utility helicopter repairer. Stacy was last seenon 01/09/[address] Lucy Shepard where they dicussed recommendation to stop HRT. When Stacy went to her utility helicopter repairer on 06/09 they recommended reducing dose of HRT per patient. Per chart review of this visit the endocrine team recommended this dose reduction instead of discontinuation to help her bones. Patient asking for this medication change and follow up on need for Mirena IUD thatis currently in place. Patient requests plan via [employer] message. Will route this encounter to her provider team. Telephone Encounter - Sydney Silva RN - 06/12/2021 1:54 PM EDT ----- Message from Jeanette Lopez sent at 06/12/2021 1:32 PM EDT ----- Regarding: Next Step Caller's name: Stacy Albright Call back #: [phone] Patient's provider/team: Dr Kumar Reason for call: Please refer to Dr Kumar's note 01/09/21 she has gone to the Osteoporosis Doctorand would like to know what is the next step? documented in this encounter Plan of Treatment Upcoming Encounters Date Type Specialty Care Team Description 07/13/2022 Appointment Radiology Maile Hinojosa MD [facility] ENDOCRINOLOGY [place] [address] (Wo rk) 07/13/2022 Office Visit Endocrinology Maile Hinojosa MD [facility] DR MARMOLEJO [place], [place] [address] (Wo rk) 07/25/2022 Office Visit Pulmonology Tong Norman MD [facility] Pulmonary Medici [place], [place] [address] (Wo rk) documented as of this encounter Visit Diagnoses Not on filedocumented in this encounter Care Teams Termite Control Servicer Relationship Specialty Start Date End Date Janet Davey APRN PCP - General Family Medicine 07/13/20 [address] [place] [address] documented as of this encounter
--- OUTSIDE RECORDS SUMMARY | 2022-05-31 15:08 | XMS_ITS | Encounter Summary ---
:1965 Author Organization [facility] [place] [address] Care Team Providers Name Role Phone Janet Davey INVESTMENT OFFICER Primary Care Provider Encounter Details Date Type Department Care Team Description 05/09/2022 Transcribe Orders eDH Incoming Referra ls Janet Davey APRN [phone] [address] [place], [place] [id number] (Wo rk) Social History Tobacco Use Types [...] Description 07/13/2022 Appointment Radiology Maile Hinojosa MD [facility] MEDICAL [facility] ER ENDOCRINOLOGY [place], [place] [address] (Wo rk) 07/13/2022 Office Visit Endocrinology Maile Hinojosa MD [facility] MED[facility] ER ENDOCRINOLOGY [place], [place] [address] (Wo rk) 07/25/2022 Office Visit Pulmonology Tong Norman MD [facility] er Pulmonary Medici [place], [place] [address] (Wo rk) documented as of this encounter Visit Diagnoses Not on filedocumented in this encounter Care Teams Product Applications Engineer Relationship Specialty Start Date End Date Janet Davey APRN PCP - General Family Medicine 07/13/20 [address] [place] [address] documented as of this encounter
--- OUTSIDE RECORDS SUMMARY | 2022-05-31 15:08 | XMS_ITS | Encounter Summary ---
:1965 Author Organization [facility] [place] [address] Care Team Providers Name Role Phone Petar Janet Isa GONCALVES Primary Care Provider Encounter Details Date Type Department Care Team Description 04/10/2022 Hospital Encounter Ultrasound at [facility] Ferdinand Michael Nephrolithiasis [facility] [place] [address] UROLOGY DEPT. [phone] [place], [place] [address] Social History Tobacco Use Types [...] (PriLOSEC) 20 TAKE 1 CAPSULE BY 0 /2 01/2022 mg Capsule, Delayed MOUTH EVERY DAY 30 Release(E.C.) MINUTES BEFORE EATING ProChamber Spacer USE DIRECTED 0 12/25/2021 WITH INHALER Allergy Relief, SWALLOW 1 TABLET BY 0 03/20/2022 fexofenadine, 180 mg MOUTH WHOLE WITH Tablet WATER ONCE A DAY DO NOT TAKE WITH FRUIT JUICES benzonatate (Tessalon) 100 Take 100 mg by 0 04/02 mg Capsule mouth 3 times daily as needed. Symbicort 160-4.5 [...] spray 0 2016 mcg (0.1 %) Aerosol, [place] into each nostril twice a day SUMAtriptan [...] Appointment Radiology Maile Hinojosa MD [facility] ENDOCRINOLOGY [place], [place] [address] (Wo rk) 07/13/2022 Office Visit Endocrinology Maile Hinojosa MD [facility] ER ENDOCRINOLOGY [place], [place] [address] (Wo rk) 07/25/2022 Office Visit Pulmonology Tong Norman MD [facility] Pulmonary Medici [place], [place] [address] (Wo rk) documented as of this encounter [...] Electronically signed by: Lakeisha vieyra MD, Radiology [facility] ([phone]), at 10:46 AM Thank you for letting us participate in the care of this patient. If you are a [facility] and have any questions regarding this report, please contact the number above. For patients who have ques tions, please contact the [facility] professio nal that requested your imaging first. ??Lakeisha Aiken, PERMASTONE APPLICATOR [facility] & Dept Chair - Rad Electronically Signed Final Report ?? 10:54 am Narrative 04/10/2022 10:55 AM EDT Renal ? (Signed Final 04/10/2022 10:54 am) PATIENT INFO: ID #: ? [id number] ?: ??[birth year] (56 yrs)(F) Name: ? JESSICA GTZ ?Visit Date: 04/10/2022 10:06 am PERFORMED BY: Performed By: ? Alo GARNER, Mathew lópez Attending: ?Nelli GILL, Adalberto Beltran Referred By: ?FERDINAND MICHAEL JR Location: ? [facility] SERVICE(S) PROVIDED: URETRO - Retroperitoneal Complete - [facility]17 ? [address] INDICATIONS: kidney stone surveillance. no stones on [...] 10:54 am ) PATIENT INFO: ID #: [id number] : 61 (56 y rs)(F) Name: JESSICA GTZ Visit Date: 04/10 10:06 am PERFORMED BY: Performed By: Cece Prajapati RDMS Attending: Lakeisha Aiken MD Referred By: FERDINAND MICHAEL JR Location: [facility] SERVICE(S) PROVIDED: URETRO - Retroperitoneal Complete - [facility] [address]17 [address] INDICATIONS: kidney stone surveillance. no stones on [...] Electronically signed by: Lakeisha vieyra MD, Radiology [facility] ([phone]), at 10:46 AM Thank you for letting us participate in the care of this patient. If you are a [facility] and have any questions regarding this report, please contact the number above. For patients who have ques tions, please contact the [facility] professio nal that requested your imaging first. Lakeisha Aiken, [facility] & Dept C hair - Rad Electronically Signed Final Report 04/10 10:54 am Ferdinand Michael Jr., MD IMG US GEN ORDERABLES documented in this encounter Visit Diagnoses Diagnosis Nephrolithiasis Calculus of kidney documented in this encounter Care Teams Order Dispatcher Relationship Specialty Start Date End Date Janet Davey APRN PCP - General Family Medicine 07/13/20 [address] [place] [address] documented as of this encounter
--- OUTSIDE RECORDS SUMMARY | 2022-05-31 15:08 | XMS_ITS | Encounter Summary ---
:1965 Author Organization [facility] [place] [address] Care Team Providers Name Role Phone EdJanet mendez Isa GONCALVES Primary Care Provider Encounter Details Date Type Department Care Team Description 07/12/2020 Orders Only Endocrinology at [facility] Cuate Pearl MD Osteoporosis, [facility] DR osteoporosis type, [place] [address] ENDOCRINOLOGY unspecified [phone] [place], [place] [address] pathological fracture [phone] presence (Work) Social History Tobacco Use Types [...] Maile Hinojosa MD [facility] ER DR MARMOLEJO [place], [place] [address] (Wo rk) 07/13/2022 Office Visit Endocrinology Maile Hinojosa MD [facility] ER DR MARMOLEJO [place], [place] [address] (Wo rk) 07/25/2022 Office Visit Pulmonology Tong Norman MD [facility] Pulmonary Medici [place], [place] [address] (Wo rk) documented as of this encounter Visit Diagnoses Diagnosis Osteoporosis, unspecified osteoporosis t ype, unspecified pathological fracture presence documented in this encounter Care Teams Account Clerk Relationship Specialty Start Date End Date Janet Davey, SENIOR OFFICE SUPPORT ASSISTANT SOSA PCP - General Family Medicine 06/23/18 07/12/20 [address] [place] [address] documented as of this encounter
--- OUTSIDE RECORDS SUMMARY | 2022-05-31 15:08 | XMS_ITS | Encounter Summary ---
:1965 Author Organization [facility] [place] [address] Care Team Providers Name Role Phone Edvanessa Janet Vanessa GONCALVES Primary Care Provider Encounter Details Date Type Department Care Team Description 12/15/2020 Orders Only Obstetrics and Saul Graham, Endo metrial polyp Gynecology at [facility] [place] [address] [place] [address] [phone] Social History Tobacco Use Types Packs/Day Years [...] [facility] DR JALEEL [place] [address] (Wo rk) 07/13/2022 Office Visit Endocrinology Maile Hinojosa MD [facility] ER [address] [place]ALEEL [place] [address] (Wo rk) 07/25/2022 Office Visit Pulmonology Tong Norman MD [facility] Pulmonary Medici [place] [address] (Wo rk) documented as of this encounter [...] who have questions please contact the health director career services that requested your imaging first. Electronically signed by: Genie Carrasco MD, [facility] ([phone]), at 2:23 PM Thank you for letting [...] 02:30 pm) PATIENT INFO: ID #: ? [id number] ?: ??[birth year] (55 yrs)(F) Name: ? JESSICA Melvin GTZ ?Visit Date: 01/09/2021 01:51 pm PERFORMED BY: Performed By: ? Keya Hedrick RDMS Attending: ?Luna GILL, Genie Dumont Referred By: ?SAUL Eddy Location: ? [facility] SERVICE(S) PROVIDED: UTV - Transvaginal - [id number] ?[id number] U3D - ??3D rendering with interpretatio n - [id number] ? [id number] INDICATIONS: ? polyp TECHNIQUE/SCAN QUALITY: Technique: ?Transducer [...] 12/24 02:30 pm) PATIENT INFO: ID #: [id number] : [birth year] (55 y rs)(F) Name: JESSICA GTZ Visit Date: 01/09 01:51 pm PERFORMED BY: Performed By: Chetna Hedrick RDMS Attending: Genie Carrasco MD Referred By: SAUL GRAHAM Location: [facility] SERVICE(S) PROVIDED: UTV - Transvaginal - [id number] 04843 U3D - 3D rendering with interpretation - [id number] [id number] INDICATIONS: ? polyp TECHNIQUE/SCAN QUALITY: Technique: Transducer [...] who have questions please contact the health director career services that requested your imaging first. Electronically signed by: Genie Carrasco MD, [facility] ([phone]), at 2:23 PM Thank you for letting [...] uteri documented in this encounter Care Teams White Lead Grinder Relationship Specialty Start Date End Date Janet Davey APRN PCP - General Family Medicine 07/13/20 [address] [place] [address] documented as of this encounter
--- OUTSIDE RECORDS SUMMARY | 2022-05-31 15:08 | XMS_ITS | Encounter Summary ---
:1965 Author Organization [place] [address] Care Team Providers Name Role Phone EdJanet mendez Isa GONCALVES Primary Care Provider Reason for Visit Reason Comments Follow-up Encounter Details Date Type Department Care Team Description 08/04/2021 Office Visit Obstetrics and Lucy Shay, Gynecology at [facility] MD Jeramie post-menopausal [facility] [address] [place], [place] OBSTETRICS & [address] GYNECOLOGY [phone] [place], [place] [address] (Wo rk) Social History [...] Stacy reports that neither she nor her Automatic Hemmer has an objection to goingdown to the [...] Appointment Radiology Maile Hinojosa MD [facility] [address] [place], [place] [address] (Wo rk) 07/13/2022 Office Visit Endocrinology Maile Hinojosa MD [facility] [address] [place], [place] [address] (Wo rk) 07/25/2022 Office Visit Pulmonology Tong Norman MD [facility] Pulmonary Medici ne [place], [place] [address] (Wo rk) documented as of this encounter Visit Diagnoses Diagnosis Osteoporosis, post-menopausal Senile osteoporosis documented in this encounter Care Teams Flight Tower Dispatcher Relationship Specialty Start Date End Date Janet Davey APRN PCP - General Family Medicine 07/13/20 [address] [place] [address] documented as of this encounter
--- OUTSIDE RECORDS SUMMARY | 2022-05-31 15:08 | XMS_ITS | Encounter Summary ---
:1965 Author Organization [facility] [place] [address] Care Team Providers Name Role Phone Petar Janet Moss APRN Primary Care Provider Encounter Details Date Type Department Care Team Description 05/17/2022 Telephone Urology at [facility] Therese Aponte, [place] [address] Social History Tobacco Use Types Packs/Day Years Used Date Never Smoker Smokeless Tobacco: Never Used Alcohol Use Standard Drinks/Week Comments No 0 (1 standard drink = 0.6 oz pure alcoho l) Sex Assigned at Date Recorded Female 01/29/2022 12:45 PM EDT documented as of this encounter Miscellaneous Notes Telephone Encounter - Therese Aponte [facility] - 05/21/2022 10:44 AM EDT I called Stacy with the following message from Dr. Michael Please let her know it is hard to say as u/s did show stones in the 6mm range but certainly might not detect very small 1mm stone. Certainly could be new. ??If 6mm is not obstructing and not bothering her, she does not need to treat it. Happy to discuss in office if she wishes, and if having symptoms acutely should come to ED She is in agreement with this and would like to do a telehealth with Dr Michael. I have sent a message to the secretaries a message requesting this Telephone Encounter - Therese Aponte CMA - 05/17/2022 9:55 AM EDT Stacy called the nursing line stating that she had gone to the ED in [facility] for Kidney stonepain. They stated she had a 1 mm stone and other small stones and that she should stay well hydrated. Micheal as of this morning is passing smaller stones but is wondering if there is anything else she can do. Per KEON Ayala it is recommended that she drink 64 oz of water, if she has Tamsulosin she should take it. She should present to the ED for further evaluation if she hasworsening symptoms, unable to void, a fever of 101.3, vomiting, or unmanageable pain from home. She is in agreement with this plan. She is requesting that Dr. Michael prescribe Tamsulosin since she was not given any and she is also wondering if she should do a 24 hour urine. documented in this encounter Plan of Treatment Upcoming Encounters Date Type Specialty Care Team Description 07/13/2022 Appointment Radiology Maile Hinojosa MD [facility] [address] MARMOLEJO [place] [id number] (Wo rk) 07/13/2022 Office Visit Endocrinology Maile Hinojosa MD [facility] [address]MO[address] [place], [place] [address] (Wo rk) 07/25/2022 Office Visit Pulmonology Tong Norman MD [facility] Pulmonary Medici ne [place], [place] [address] (Wo rk) documented as of this encounter Visit Diagnoses Not on filedocumented in this encounter Care Teams Electric Motor Tester Assembler Relationship Specialty Start Date End Date Janet Davey APRN PCP - General Family Medicine 07/13/20 [address] [place] [address] documented as of this encounter
--- OUTSIDE RECORDS SUMMARY | 2022-05-31 15:08 | XMS_ITS | Encounter Summary ---
:1965 Author Organization [facility] [place] [address] Care Team Providers Name Role Phone EdJanet mendez Isa GONCALVES Primary Care Provider Encounter Details Date Type Department Care Team Description 06/15/2021 Telephone Obstetrics and Gynecology Paty Shepard, [place] [address] OBSTETRICS & GYNECOLOGY [phone] [place], [place] [address] (Wo rk) Social History Tobacco [...] Description 07/13/2022 Appointment Radiology Maile Hinojosa MD [facility] [address]MO[address] [place], [place] [address] (Wo rk) 07/13/2022 Office Visit Endocrinology Maile Hinojosa MD [facility] [address] [place], [place] [address] (Wo rk) 07/25/2022 Office Visit Pulmonology Tong Norman MD [facility] Pulmonary Medici [place], [place] [address] (Wo rk) documented as of this encounter Visit Diagnoses Not on filedocumented in this encounter Care Teams Grey Goods Marker Relationship Specialty Start Date End Date Janet Davey, AT RISK SPECIALIST PCP - General Family Medicine 07/13/20 [address] [place] [address] documented as of this encounter
--- OUTSIDE RECORDS SUMMARY | 2022-05-31 15:09 | XMS_ITS | Encounter Summary ---
:1965 Author Organization [facility] [place] [address] Care Team Providers Name Role Phone Janet Davey APRN Primary Care Provider Reason for Visit Consultation (Routine) - Specialty Diagnoses / Procedures Referred By Contact Refer red To Contact Dermatology Diagnoses Follicular disorder, unspecified Folliculitis presumed Fungal Janet Davey APRN Hammer, Charles J, MD Procedures Consult [address] [place] [address] [place] [address] Phone: Fax: Referral ID Status Reason Start Date Expiration Date Visits V isits Requested Authorized [id number] Consult, Test 12/28/2019 06/29/2020 6 6 & Treat PCP Updated and/or Approved Encounter Details Date Type Department Care Team Description 01/04/2020 TH Visit Dermatology at [facility] Keratos is pilaris (TeleHealth) Yarelis GILL [address] [facility] Medhat B DERMATOLOGY [place], [place] [id number] [phone] Social History Tobacco Use Types Packs/Day Years [...] 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 [...] MD [facility] [address] MARMOLEJO [place], [place] [address] (Wo rk) 07/13/2022 Office Visit Endocrinology Maile Hinojosa MD [facility] [address]MO[address] [place], [place] [address] (Wo rk) 07/25/2022 Office Visit Pulmonology Tong Norman MD [facility] Pulmonary Medici ne [place], [place] [address] (Wo rk) documented as of this encounter Visit Diagnoses Diagnosis 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
--- OUTSIDE RECORDS SUMMARY | 2022-05-31 15:09 | XMS_ITS | Encounter Summary ---
:1965 Author Organization [facility] [place] [address] Care Team Providers Name Role Phone Suzie Mcintyre APRN Primary Care Provider Encounter Details Date Type Department Care Team Description 04/25/2017 Telephone Urology at [facility] Luis Michael Jr., [place] [facility] [place] [address] UROLOGY DEPT. [phone] [place], [place] [address] (Wo rk) Social History Tobacco [...] Maile Hinojosa MD [facility] ER ENDOCRINOLOGY [place], [place] [address] (Wo rk) 07/13/2022 Office Visit Endocrinology Maile Hinojosa MD [facility] ENDOCRINOLOGY [place], [place] [address] (Wo rk) 07/25/2022 Office Visit Pulmonology Tong Norman MD [facility] Pulmonary Medici [place], [place] [address] (Wo rk) documented as of this encounter Visit Diagnoses Not on filedocumented in this encounter Care Teams Cherry Dipper Relationship Specialty Start Date End Date Suzie Mcintyre APRN PCP - General Family Medicine 02/28/17 06/26/17 documented as of this encounter
--- OUTSIDE RECORDS SUMMARY | 2022-05-31 15:09 | XMS_ITS | Encounter Summary ---
:1965 [place] [address] Care Team Providers Name Role Phone Suzie Mcintyre APRN Primary Care Provider Encounter Details Date Type Department Care Team Description 04/18/2017 Surgery Main Operating Room Luis Michael Jr., Ken YSISAMAR, [facility] FULGURATION\BLADDER [facility] LESION\W\WO BX\[facility] DR THAN 0.5CM (WRVU 4.05) [facility] [place] [address] [place], [place] [address] [phone] (Wo rk) Social History Tobacco Use Types [...] directed NASONEX 50 mcg/actuation 0 05/18/2016 06/11/2018 [place], Non-Aerosol levonorgestrel (MIRENA) 1 each by Intrauterine route once. Lot [id number] 05/01/2016 05/01/2021 20 mcg/24 hr (5 years) [id number] IUD omeprazole (PRILOSEC) 20 PRN 0 03/22/2016 [...] 8 patch 11 ??? NASONEX 50 mcg/actuation [place], Non-Aerosol 0 ??? SUMAtriptan (IMITREX) 100 mg Tablet as needed for Migraine. 1 ??? levonorgestrel (MIRENA) 20 mcg/24 hr (5 years) IUD 1 each by Intrauterine route once. Lot [id number] ??? multivitamin (THERAGRAN) tablet Take 1 tablet [...] Perez MD - 04/18/2017 1:31 PM EDT [facility] Operative Note Patient Name: Stacy Albright : [id number] MR#: [id number] Case Date: 04/18/2017 Surgeon: Surgeon(s) and Role: [...] Operative Note Patient Name: Stacy Albright : [id number] MR#: [id number] Case Date: 04/18/2017 Surgeon: Surgeon(s) and Role: [...] Description 07/13/2022 Appointment Radiology Maile Hinojosa MD [facility] [address]EL [place] [address] (Wo rk) 07/13/2022 Office Visit Endocrinology Maile Hinojosa MD [facility] [address] [place] [address] (Wo rk) 07/25/2022 Office Visit Pulmonology Tong Norman MD [facility] er Pulmonary Medici [place], [place] [address] (Wo rk) documented as of this [...] Component Value Ref Test Analysis Performed At [facility] Range Method Time Signature Surgical [id number] ? Location: [facility]; [facility] Report The signing pathologist has (i) examined [...] MD PATHOLOGY/CYTOLOGY ORDERABLE S Performing Organization Address City/[facility]/[place]IP [place] [address] Specimen to Pathology (surgical or derm) (04/18/2017 1:17 PM EDT) Specimen Anatomical Collection Method Collection Time Receive d Time (Source) Location / / Volume Laterality AP Specimen 04/18/2017 1:17 PM 7 1:17 EDT PM EDT Narrative [facility] - 04/18/2017 1:17 PM EDT Specimen requisition ordered. ??Separate Pathology report to follow Luis Michael Jr., MD PATHOLOGY/CYTOLOGY ORDERABLE S Performing Organization Address City/[facility]/[place]IP [place] [address] documented in this encounter [...] Provider: Romy Ballesteros MD) 2 g, Intravenous, ASSISTANT WOMEN'S SOCCER COACH TO O.R., 1 dos e, Shanta 04/18/17 [...] EVERY 30 MIN PRN, 2 doses, Starting Shnata 04/18/17 at 1344, Until Shanta 04/18/17 at [...] Routine documented in this encounter Care Teams Open Hearth Furnace Laborer Relationship Specialty Start Date End Date Suzie Mcintyre APRN PCP - General Family Medicine 02/28/17 06/26/17 documented as of this encounter
--- OUTSIDE RECORDS SUMMARY | 2022-05-31 15:09 | XMS_ITS | Encounter Summary ---
:1965 Author Organization [facility] [place] [address] Care Team Providers Name Role Phone EdJanet mendez Isa GONCALVES Primary Care Provider Reason for Visit Reason Comments Skin Lesion Consultation (Routine) - Specialty Diagnoses / Procedures Referred By Contact Refer red To Contact Dermatology Diagnoses SKIN LESION Doreen Larios PA [facility] Dermatology [address] [place] [address] [place] [address] Fax: Referral ID Status Reason Start Date Expiration Date Visits V isits Requested Authorized [id number] Consult, 05/16/2018 05/16/2019 6 6 Test & Treat Connection Center Encounter Details Date Type Department Care Team Description 06/23/2018 Office Visit Dermatology at [facility] Seborrheic keratosis; Matthew Estrada MD Lentigines [address] [place] [address] [facility] [address]-DERMATOLOGY [place], [place] [address] Social History Tobacco Use Types [...] or pain. 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 Lot [id number] ??? omeprazole (PRILOSEC) 20 mg Capsule, Delayed [...] physician for review and change by: Romy Cheney, LILLY I, Colby Hernandez, have performed the documentation [...] documentation. Romy Ansari MD Section of Dermatology [facility] documented in this encounter Plan of Treatment Upcoming Encounters Date Type Specialty Care Team Description 07/13/2022 Appointment Radiology Maile Hinojosa MD [facility] [address] [place], [place] [address] (Wo rk) 07/13/2022 Office Visit Endocrinology Maile Hinojosa MD [facility] [address] [place], [place] [address] (Wo rk) 07/25/2022 Office Visit Pulmonology Tong Norman MD [facility] Pulmonary Medici ne [place], [place] [address] (Wo rk) documented as of this encounter Visit Diagnoses Diagnosis Seborrheic keratosis Other seborrheic keratosis Lentigines Other dyschromia documented in this encounter Care Teams Medical Office Supervisor Relationship Specialty Start Date End Date Janet Davey APRN PCP - General Family Medicine 06/23/18 07/12/20 [address] [place] [address] documented as of this encounter
--- OUTSIDE RECORDS SUMMARY | 2022-05-31 15:09 | XMS_ITS | Encounter Summary ---
:1965 Author Organization [facility] [place] [address] Care Team Providers Name Role Phone Sarah Young APRN Primary Care Provider [phone] Encounter Details Date Type Department Care Team Description 10/11/2017 Telephone Psychiatry and Behavioral Jessica Miranda, PhD Health at [facility] NEUROPSYCHOLOGY DEPT. [place] [address] [place] [address] [phone] (Wo rk) Social History Tobacco Use Types [...] to discuss the results of her second [facility] neuropsychological evaluation. Briefly, the results revealed generally [...] Albright for evaluation. Please contact us at [phone] if we can be of further assistance. Sherine Hurst Psy.D. Jessica Shelton, Ph.D., ABPP Postdoctoral Fellow in Neuropsychology Board Certified in Clinical Neuropsychology steel unloader Director, Neuropsychology Program documented in this encounter Plan of Treatment Upcoming Encounters Date Type Specialty Care Team Description 07/13/2022 Appointment Radiology Maile Hinojosa MD [facility] [address] [place], [place] [address] (Wo rk) 07/13/2022 Office Visit Endocrinology Maile Hinojosa MD [facility] [address] [place], [place] [address] (Wo rk) 07/25/2022 Office Visit Pulmonology Tong Norman MD [facility] Pulmonary Medici ne [place], [place] [address] (Wo rk) documented as of this encounter Visit Diagnoses Not on filedocumented in this encounter Care Teams Soda Fountain Clerk Relationship Specialty Start Date End Date Sarah Young APRN PCP - General Family Medicine 06/27/17 05/15/18 [address] [place] [address] documented as of this encounter
--- OUTSIDE RECORDS SUMMARY | 2022-05-31 15:09 | XMS_ITS | Encounter Summary ---
:1965 Author Organization [facility] [place] [address] Care Team Providers Name Role Phone Sarah Young APRN Primary Care Provider [phone] Encounter Details Date Type Department Care Team Description 07/26/2017 Telephone Urology [place] [facility] Luis Michael Jr., MD [facility] [place] [address] UROLOGY DEPT. [phone] [place], [place] [address] (Wo rk) Social History Tobacco [...] Radiology Maile Hinojosa MD [facility] ER ENDOCRINOLOGY [place], [place] [address] (Wo rk) 07/13/2022 Office Visit Endocrinology Maile Hinojosa MD [facility] DR [place], [place] [address] (Wo rk) 07/25/2022 Office Visit Pulmonology Tong Norman MD [facility] Pulmonary Mediceduardo [place], [place] [address] (Wo rk) documented as of this encounter Visit Diagnoses Not on filedocumented in this encounter Care Teams Aircraft Design Engineer Relationship Specialty Start Date End Date Sarah Young APRN PCP - General Family Medicine 06/27/17 05/15/18 [address] [place] [address] documented as of this encounter
--- OUTSIDE RECORDS SUMMARY | 2022-05-31 15:09 | XMS_ITS | Encounter Summary ---
:1965 Author Organization [facility] Address [facility] [address] [place] [address] Care Team Providers Name Role Phone Sarah Young APRN Primary Care Provider Encounter Details Date Type Department Care Team Description 08/05/2017 Office Visit Obstetrics and Ida Ron, Encounter for Gynecology at [facility] BAR HELPER gynecological [facility] examinati on without [address] DR abnormal finding [place], [place] OBSTETRICS & [address] GYNECOLOGY [phone] [place], [place] [address] Social History Tobacco Use Types [...] in this encounter Progress Notes Ida Ron, BAR HELPER - 08/05/2017 7:00 AM EST Reason for visit: Annual neonatal nurse practitioner exam ROS: MARKER MAKER: No urinary inc, no vaginal itching, burning, [...] History: Procedure Laterality Date ??? CREATED BY [employer] Cathy(MSUROL) Procedure Date: 01/16/2008 ??? KNEE SURGERY 03/01/14 Right knee; patella surgery ??? LITHOTRIPSY ? ? PRO CYSTOURETHROSCOPY, FULGUR <.5CM LESN N/A 04/18/2017 CYSTO, FULGURATION\BLADDER LESION\W\WO BX\LESS THAN 0.5CM (WRVU 4.05) performed by Luis Michael Jr., MD at [facility] MAIN OR MARKER MAKER History: Pt is a 51 year old [...] a new home in their town of [place], [place]. 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 Eats relatively healthy with fruits, vegetables, yogurt, [...] azelastine (ASTELIN) 137 mcg (0.1 %) Aerosol, [place] instill 1 spray into each nostril twice [...] 1 each by Intrauterine route once. Lot [id number] ??? omeprazole (PRILOSEC) 20 mg Capsule, Delayed [...] confirms, good tone, no hemorrhoids A: Unremarkable neonatal nurse practitioner exam Cervical erosion possible due to IUD [...] History: Procedure Laterality Date ??? CREATED BY [employer]) Procedure Date: 01/16/2008 ??? KNEE SURGERY 03/01/14 Right knee; patella surgery ??? LITHOTRIPSY ? ? PRO CYSTOURETHROSCOPY, FULGUR <.5CM LESN N/A 04/18/2017 CYSTO, FULGURATION\BLADDER LESION\W\WO BX\LESS THAN 0.5CM (WRVU 4.05) performed by Luis Micahel Jr., MD at [facility] MAIN OR Social History Social History [...] a new home in their town of [place], [place]. 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 Eats relatively healthy with fruits, vegetables, yogurt, [...] Description 07/13/2022 Appointment Radiology Maile Hinojosa MD [facility] [address] [place] [place], [place] [address] (Wo rk) 07/13/2022 Office Visit Endocrinology Maile Hinojosa MD [facility] ER ENDOCRINOLOGY [place], [place] [address] (Wo rk) 07/25/2022 Office Visit Pulmonology Tong Norman MD [facility] er Pulmonary Medici ne [place], [place] [address] (Wo rk) documented as of this encounter Procedures Procedure Name Priority Date/Time Associated Diagnosis Comme nts MARKER MAKER CYTOLOGY Routine 08/05/2017 9:41 Results for this INTERPRETATION AM EST procedure are in the results section. MARKER MAKER CYTOLOGY FINAL Routine 08/05/2017 9:41 Result s for this REPORT AM EST procedure are i n the results section. CYTOPATHOLOGY Routine 08/05/2017 9:41 Encounter for Results fo r this GYNECOLOGICAL AM EST gynecological procedure are in examination without the resu lts abnormal finding section. documented in this encounter Results Honeycomb Decapper Cytology Final Report (08/05/2017 9:41 AM EST) Component Value Ref Test Analysis Performed At [facility] Range Method Time Signature Honeycomb Decapper Cytology ? Location: [address] [place] [address] Final Report [place] The signing pathologist has (i) examined the relevant preparation(s) for the [facility] specimen(s) and (ii) rendered or confirmed the diagnosis(es) . HOSPITAL LABORATORY . ? Honeycomb Decapper Final DIAGNOSIS Normal Negative for Intraepithelial Lesion or Malignancy (NILM). For consensus guidelines for the management of c ervical cancer screening test results, please see: ?? http://www.asccp.org . Electronically signed by: ??Heladio CÁRDENAS(ASCP)Salma Verified: ??08/16/2017 ?[employer] Architect Performed at: ??-[facility] Dept. of Pathology, [place], [place] HPV RESULTS Not applicable (HPV testing either not indicated or not requested by clinician). STATEMENT OF ADEQUACY Specimen submitted is satisfactory. Endocervical component present. CLINICAL INFORMATION HPV Option: ?Reflex HPV Preparation: ? Liquid based Pap Specimen Source: ? Cervical/Endocervical LMP: ? n/a Hormones?: ? Yes Hysterectomy?: ? No ?: ? No ?: ? No I.U.D.?: ? Yes Pelvic Radiation: ?No Prior MARKER MAKER Therapy?: ?Cryotherapy Hist Abnl Pap/Biopsy?: ?? Yes, [...] [facility] Laboratory. Reference: Devika LEON. Assistant Community Manager of Pap Smear Results. In: Sukumar BS, Roni CALLEJAS, e aníbal. The Pap Smear. [place]: Jonah, 2002: 71-77. Specimen (Source) Anatomical Collection Method Collection Time Re ceived Time Location / / Volume Laterality 08/05/2017 9:41 AM EST Ida Dayna Asaf TEIXEIRAN PATHOLOGY/CYTOLOGY ORDERABLE S Performing Organization Address City/State/[place] [address] MARKER MAKER Cytology Interpretation (08/05/2017 9:41 AM EST) [facility] g[facility] Method Time Signature Honeycomb Decapper Cytology NILM [facility] LABORATORY Comment: Honeycomb Decapper Cytology Final Report Acces kendall: [id number] Endocervical Component Present [facility] LABORATORY Specimen Anatomical Collection Method Collection Time Receive d Time (Source) Location / / Volume Laterality AP Specimen 08/05/2017 9:41 AM 7 EST 10:17 AM EST Ida Ron APRN PATHOLOGY/CYTOLOGY ORDERABLE S Performing Organization Address City/[facility]/ZIP Code Phon e Number [address] Cytopathology Gynecological (08/05/2017 9:41 AM EST) Specimen Anatomical Collection Method Collection Time Receive d Time (Source) Location / / Volume Laterality AP Specimen 08/05/2017 9:41 AM 7 9:41 EST AM EST Narrative [facility] LABORAT ORY - 08/05/2017 9:41 AM EST Specimen requisition ordered. ??Separate Pathology report to follow Ida Ron APRN PATHOLOGY/CYTOLOGY ORDERABLE S Performing Organization Address City/[facility]/ZIP Code Phon e Number [address] documented in this encounter Visit Diagnoses Diagnosis Encounter for gynecological examination without abnormal finding Routine gynecological examination documented in this encounter Care Teams Pastry Supervisor Relationship Specialty Start Date End Date Sarah Young APRN PCP - General Family Medicine 06/27/17 05/15/18 [address] [place] [address] documented as of this encounter
--- OUTSIDE RECORDS SUMMARY | 2022-05-31 15:09 | XMS_ITS | Encounter Summary ---
:1965 Author Organization [facility] [place] [address] Care Team Providers Name Role Phone Suzie Mcintyre APRN Primary Care Provider Encounter Details Date Type Department Care Team Description 05/01/2017 Orders Only Endocrinology at [facility] Cuate Pearl MD Osteoporosis, [facility] DR osteoporosis type, [place] [address] ENDOCRINOLOGY unspecified [phone] [place], [place] [address] pathological fracture [phone] presence (Work) Social History Tobacco Use Types [...] Radiology Maile Hinojosa MD [facility] ER [address] MARMOLEJO [place], [place] [address] (Wo rk) 07/13/2022 Office Visit Endocrinology Miale Hinojosa MD [facility] ER DR MARMO[address]JO [place], [place] [address] (Wo rk) 07/25/2022 Office Visit Pulmonology Tong Norman MD [facility] Pulmonary Medici [place], [place] Freddy (Wo rk) documented as of this encounter Results DXA Central-Spine, Hip, And/Or [...] measurements an d plots are available in [employer] under the imaging tab. Paper copies will be sent to providers without E- access. If you have received this report without th e data sheet and do not have access to [employer], please contact Radiology Transcrip tion at [phone] Saturday thru Saturday 8am-4pm. Narrative 06/27/2017 4:50 [...] icant change. The measured changes in comparison [facility] study are not large enough in [...] signif icant change. The measured changes in [facility] study are not large enough in magnitude [...] sheet and do not have access to [employer], please contact Radiology Transcrip tion at [phone] Saturday thru Saturday 8am-4pm. Cuate Hall MD IMG DEXA ORDERABLES documented in this encounter Visit Diagnoses Diagnosis Osteoporosis, unspecified osteoporosis t ype, unspecified pathological fracture presence Osteoporosis, unspecified osteoporosis t ype, unspecified pathological fracture presence documented in this encounter Care Teams Senior Hr Manager Relationship Specialty Start Date End Date Suzie Mcintyre APRN PCP - General Family Medicine 02/28/17 06/26/17 documented as of this encounter
--- OUTSIDE RECORDS SUMMARY | 2022-05-31 15:09 | XMS_ITS | Encounter Summary ---
:1965 Author Organization [facility] Address [address] [place] [address] Care Team Providers Name Role Phone Sarah Young APRN Primary Care Provider [phone] Encounter Details Date Type Department Care Team Description 06/27/2017 Office Visit Endocrinology at [facility] Cuate Pearl MD Osteoporosis, [facility] DR osteoporosis type, [place] [address] ENDOCRINOLOGY unspecified [phone] [place], [place] [address] pathological fracture [phone] presence (Work) Social History Tobacco Use Types [...] possible hypercalciuria). 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 [...] Hinojosa MD [facility] DR [address] [place], [place] [address] (Wo rk) 07/13/2022 Office Visit Endocrinology Maile Hinojosa MD [facility] DR [address]MO[address] [place], [place] [address] (Wo rk) 07/25/2022 Office Visit Pulmonology Tong Norman MD [facility] Pulmonary Medici ne [place], [place] [address] (Wo rk) documented as of [...] 9.1 8.5 - 10.5 ALBERT LEMONSCOCK mg/dL [facility] Specimen Anatomical Collection Method Collection Time Receive d Time (Source) Location / / Volume Laterality Blood specimen 06/27/2017 3:22 PM 017 3:29 (specimen) EDT PM EDT Resulting Agency Comment Spec In Lab Cuate Hall MD CHEMISTRY ORDERABLES Performing Organization Address City/[facility]/ZIP Code Phon e Number [address] Vitamin D, 25-Hydroxy (06/27/2017 3:22 PM EDT) P athologist Signature 25-OH Vit D 32 30 - 100 ALBERT DAUGHERTYASHUTOSH Total ng/mL [facility] Comment: Deficient <10 ng/mL Insufficient 10 to 29 ng/mL Sufficient 30 to 100 ng/mL Potential Intoxication >100 ng/mL According to the US National Osteoporosi s Foundation, Vitamin D concentrations >30 ng/mL are sufficient to protect bone health. ??The National Kidney Foundation has similarly stated that pat ients with Vitamin D concentrations <30ng/mL should be considered to be insu fficient or deficient. http://[employer]/nkf-guidelines http://[employer]/nejm-VitD The [employer] Vitamin D Immunoassay detec [...] Organization Address City/State/ZIP Code Phon e Number [address] PTH (06/27/2017 3:22 PM EDT) P athologist Signature PTH 41 15 - 65 ALBERT DAUGHERTYASHUTOSH pg/mL [facility] Specimen Anatomical Collection Method Collection Time Receive d Time (Source) Location / / Volume Laterality Blood specimen 06/27/2017 3:22 PM 017 3:29 (specimen) EDT PM EDT Resulting Agency Comment Spec In Lab Cuate Hall MD CHEMISTRY ORDERABLES Performing Organization Address City/State/ZIP Code Phon e Number [place] [id number] documented in this encounter Visit Diagnoses Diagnosis Osteoporosis, unspecified osteoporosis t ype, unspecified pathological fracture presence documented in this encounter Care Teams Wild Animal Caretaker Relationship Specialty Start Date End Date Sarah Young, MATERIAL CUTTER PCP - General Family Medicine 06/27/17 05/15/18 [address] [place] [address] documented as of this encounter
--- OUTSIDE RECORDS SUMMARY | 2022-05-31 15:09 | XMS_ITS | Encounter Summary ---
:1965 Author Organization [facility] Address [facility] [place] [address] Care Team Providers Name Role Phone Petar Janet Isa GONCALVES Primary Care Provider Encounter Details Date Type Department Care Team Description 07/07/2020 Office Visit Endocrinology at [facility] Cuate Pearl MD Osteoporosis, [facility] DR osteoporosis type, [place] [address] ENDOCRINOLOGY unspecified [phone] [place], [place] [address] pathological fracture [phone] presence (Work) Social History Tobacco Use Types [...] 20 of the 25-minute appointment was spent [id number] discussing the issues above. documented in this encounter Plan of Treatment Upcoming Encounters Date Type Specialty Care Team Description 07/13/2022 Appointment Radiology Maile Hinojosa MD [facility] ENDOCRINOLOGY [place], [place] [address] (Wo rk) 07/13/2022 Office Visit Endocrinology Maile Hinojosa MD [facility] ENDOCRINOLOGY [place], [place] [address] (Wo rk) 07/25/2022 Office Visit Pulmonology Tong Norman MD [facility] Pulmonary Medici ne [place], [place] [address] (Wo rk) documented as of [...] EST) P athologist Signature Estradiol 135 pg/mL [facility] Comment: Reference ranges: Males: Adult: [...] Hall MD CHEMISTRY ORDERABLES Performing Organization Address City/[facility]/[place] [address] Vitamin D, 25-Hydroxy (07/07/2020 3:51 PM EST) Patholo gist Method Time Signature 25-OH Vit D 42 21 - 100 [facility] Total ng/mL [facility] 25-OH Vit D Sufficient [facility] LABORATORY Specimen Anatomical Collection Method Collection Time Receive d Time (Source) Location / / Volume Laterality Blood specimen No Charge / 07/07/2020 3:51 PM 020 4:18 (specimen) Unknown EST PM EST Resulting Agency Comment Spec In Lab Cuate Hall MD CHEMISTRY ORDERABLES Performing Organization Address City/State/[place] [address] Calcium (07/07/2020 3:51 PM EST) athologist Signature Calcium 9.1 8.5 - 10.5 ALBERT ASHUTOSH mg/dL [facility] Specimen Anatomical Collection Method Collection Time Receive d Time (Source) Location / / Volume Laterality Blood specimen No Charge / 07/07/2020 3:51 PM 4:18 (specimen) Unknown EST PM EST Resulting Agency Comment Spec In Lab Cuate Hall MD CHEMISTRY ORDERABLES Performing Organization Address City/State/ZIP Code Phon e Number [address] PTH (07/07/2020 3:51 PM EST) athologist Signature PTH 40 15 - 65 [facility] ASHUTOSH pg/mL [facility] Specimen Anatomical Collection Method Collection Time Receive d Time (Source) Location / / Volume Laterality Blood specimen No Charge / 07/07/2020 3:51 PM 8:39 (specimen) Unknown EST AM EST Resulting Agency Comment Spec In Lab Cuate Hall MD CHEMISTRY ORDERABLES Performing Organization Address City/State/ZIP Code Phon e Number [address] Lavender Tube HOLD (07/07/2020 3:51 PM EST) [facility] gist Method Time Signature Lavender Hold Sample in [facility] LABORATORY Specimen Anatomical Collection Method Collection Time Receive d Time (Source) Location / / Volume Laterality Blood specimen No Charge / 07/07/2020 3:51 PM 020 3:59 (specimen) Unknown EST PM EST Cuate Hall MD HEMATOLOGY ORDERABLES Performing Organization Address City/State/ZIP Code Phon e Number [address] Green Tube HOLD (07/07/2020 3:51 PM EST) athologist Signature Green Hold Sample in [facility] LABORATORY Specimen Anatomical Collection Method Collection Time Receive d Time (Source) Location / / Volume Laterality Blood specimen No Charge / 07/07/2020 3:51 PM 020 3:59 (specimen) Unknown EST PM EST Cuate Hall MD CHEMISTRY ORDERABLES Performing Organization Address City/[facility]/ZIP Code Phon e Number [address] Gold Tube HOLD (07/07/2020 3:51 PM EST) athologist Signature Gold Hold Sample in [facility]. [facility] Specimen Anatomical Collection Method Collection Time Receive d Time (Source) Location / / Volume Laterality Blood specimen No Charge / 07/07/2020 3:51 PM 020 3:59 (specimen) Unknown EST PM EST Cuate Hall MD CHEMISTRY ORDERABLES Performing Organization Address City/[facility]/[place] [address] documented in this encounter Visit Diagnoses Diagnosis Osteoporosis, unspecified osteoporosis t ype, unspecified pathological fracture presence documented in this encounter Care Teams Specimen Accessioner Relationship Specialty Start Date End Date Janet Davey, REVENUE MANAGER PCP - General Family Medicine 06/23/18 07/12/20 [address] [place] [address] documented as of this encounter
--- OUTSIDE RECORDS SUMMARY | 2022-05-31 15:09 | XMS_ITS | Encounter Summary ---
:1965 Author Organization [facility] [place] [address] Care Team Providers Name Role Phone Petar Janet Moss SPIRAL GEAR GENERATOR Primary Care Provider Reason for Visit Reason Comments Annual Exam Encounter Details Date Type Department Care Team Description 10/20/2019 Office Visit Obstetrics and Ida Ron, Menopause ; Gynecology at [facility] SPIRAL GEAR GENERATOR Encounter for gynecological examination without abnormal finding [facility] [address] [place] & [id number] GYNECOLOGY [phone] [place], [place] [address] Social History Tobacco Use Types [...] R frozen shoulder and rotator cuff repair 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 Does not [...] performed by Luis Michael Jr., MD at [facility] MAIN OR ??? SHOULDER SURGERY [...] on phone: None Gets together: None Attends religion service: None Active member of club or organization: None Attends meetings of clubs or organizations: None Relationship status: None ??? Intimate partner violence Fear of current or ex partner: None Emotionally abused: None Physically abused: None Forced sexual activity: None Other Topics Concern ??? None Social History Narrative with 3 children. Lives in [place], [place]. 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 Eats relatively healthy with fruits, vegetables, yogurt, and milk; minimal meat. Eats 3 meals per day, does not drink tea or coffee, and occasionally drinks soda.Her youngest is 19 yrs old, in college in [place]. The other two are out of the [...] azelastine (ASTELIN) 137 mcg (0.1 %) Aerosol, Barton instill 1 spray into each nostril twice a day 0 ??? LINZESS 145 mcg Capsule 145 mg every other day. 0 ??? linaclotide (LINZESS) 72 mcg Capsule Take 72 mcg by mouth every other day. ??? SUMAtriptan (IMITREX) 100 mg Tablet as needed for Migraine. 1 ??? levonorgestrel (MIRENA) 20 mcg/24 hr (5 years) IUD 1 each by Intrauterine route once. Lot [id number] ??? 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 CREATED BY INTERFACE Cathy([facility]) Procedure Date: 01/16/2008 ??? KNEE SURGERY 03/01/14 Right knee; patella surgery ??? LITHOTRIPSY ? ? PRO CYSTOURETHROSCOPY, FULGUR <.5CM LESN N/A 04/18/2017 CYSTO, FULGURATION\BLADDER LESION\W\WO BX\LESS THAN 0.5CM (WRVU 4.05) performed by Luis Michael Jr., MD at [facility] MAIN OR ??? SHOULDER SURGERY Right 07/2019 RETORT LOADER History: Pt is a 54??year old G [...] file Gets together: Not on file Attends religion service: Not on file Active member of [...] History Narrative with 3 children. Lives in [place], [place]. 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 Eats relatively healthy with fruits, vegetables, yogurt, and milk; minimal meat. Eats 3 meals per day, does not drink tea or coffee, and occasionally drinks soda.Her youngest is 19 yrs old, in college in [place]. The other two are out of the house. She is very involved with her sons family that has lots of psycho social issues, her sons is bipolar, back issue, they have one child together, she had 3 in a previous relationship. She has not gone for counseling. 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 LINZESS 145 mcg Capsule 145 mg every other day. 0 ??? linaclotide (LINZESS) 72 mcg Capsule Take 72 mcg by mouth every other day. ??? SUMAtriptan (IMITREX) 100 mg Tablet as needed for Migraine. 1 ??? levonorgestrel (MIRENA) 20 mcg/24 hr (5 years) IUD 1 each by Intrauterine route once. Lot [id number] ??? hydrocortisone (WESTCORT) 0.2 % Cream Apply [...] confirms, good tone, no hemorrhoids A: Unremarkable boat outfitting supervisor exam Probably menopausal spotting with Mirena and estradiol P: FSH pending documented in this encounter Plan of Treatment Upcoming Encounters Date Type Specialty Care Team Description 07/13/2022 Appointment Radiology Maile Hinojosa MD [facility] ENDOCRINOLOGY [place], [place] [address] (Wo rk) 07/13/2022 Office Visit Endocrinology Maile Hinojosa MD [facility] ER ENDOCRINOLOGY [place], [place] [address] (Wo rk) 07/25/2022 Office Visit Pulmonology Tong Norman MD [facility] Pulmonary Medici ne [place], [place] [address] (Wo rk) documented as of this encounter Procedures Procedure Name Priority Date/Time Associated Diagnosis Comme nts HC VENIPUNCTURE Routine 10/20/2019 4:16 PM Menopause Result s for this EST procedure are i n the results section. documented in this encounter Results Follicle Stimulating Hormone (10/20/2019 4:16 PM EST) athologist Signature FSH 40.8 mlU/ML [facility] Comment: Reference Ranges Male: ? 1.5-12. [...] Organization Address City/State/[place] [address] documented in this encounter Visit Diagnoses Diagnosis Menopause Asymptomatic postmenopausal status (age- related) (natural) Encounter for gynecological examination without abnormal finding Routine gynecological examination documented in this encounter Care Teams Home Care Scheduler Relationship Specialty Start Date End Date Janet Davey APRN PCP - General Family Medicine 06/23/18 07/12/20 [address] [place] [address] documented as of this encounter
--- OUTSIDE RECORDS SUMMARY | 2022-05-31 15:09 | XMS_ITS | Encounter Summary ---
:1965 Author Organization [facility] [place] [address] Care Team Providers Name Role Phone Janet Davey Isa GONCALVES Primary Care Provider Encounter Details Date Type Department Care Team Description 03/30/2019 Orders Only Urology [place] [facility] Luis Michael Jr., MD [facility] [place] [address] UROLOGY DEPT. [phone] [place], [place] [address] (Wo rk) Social History Tobacco [...] MD [facility] ER ENDOCRINOLOGY [place], [place] [address] (Wo rk) 07/13/2022 Office Visit Endocrinology Maile Hinojosa MD [facility] DR [place]EL [place], [place] [address] (Wo rk) 07/25/2022 Office Visit Pulmonology Tong Norman MD [facility] Pulmonary Mediceduardo [place], [place] [address] (Wo rk) documented as of this encounter Visit Diagnoses Not on filedocumented in this encounter Care Teams Assisted Living Executive Director Relationship Specialty Start Date End Date Janet Davey, SENIOR REVENUE ACCOUNTANT PCP - General Family Medicine 06/23/18 07/12/20 [address] [place] [address] documented as of this encounter
--- OUTSIDE RECORDS SUMMARY | 2022-05-31 15:09 | XMS_ITS | Encounter Summary ---
:1965 Author Organization [facility] [place] [address] Care Team Providers Name Role Phone Petar Janet Isa GONCALVES Primary Care Provider Reason for Referral Diagnostic Test (Routine) - Closed Specialty Diagnoses / Procedures Referred By Contact Refer red To Contact Radiology Diagnoses Osteoporosis, unspecified osteoporosis type, unspecified pathological fracture presence Cuate Hall MD [facility] Rad Xray Procedures DXA Central Spine, Hip, and/or Whole Body (Generic) [facility] [place] [facility] [place] [address] [place] [address] Referral ID Status Reason Start Date Expiration Date Visits V isits Requested Authorized [id number] Closed Specialty 03/14/2020 09/14/2021 1 1 Service Requested Reason for Visit Diagnostic Test (Routine) - Closed Specialty Diagnoses / Procedures Referred By Contact Refer red To Contact Radiology Diagnoses Osteoporosis, unspecified osteoporosis type, unspecified pathological fracture presence Cuate Hall MD [facility] Rad Xray Procedures DXA Central Spine, Hip, and/or Whole Body (Generic) [facility] [address] [place] [facility] [place] [address] [place] [address] Referral ID Status Reason Start Date Expiration Date Visits V isits Requested Authorized [id number] Closed Specialty 03/14/2020 09/14/2021 1 1 Service Requested Encounter Details Date Type Department Care Team Description 07/07/2020 Hospital Encounter XRay at [facility] Cuate Hall, Osteoporosis, [address] [place] unspecified [place], [place] [facility] osteoporosis [place], [address] funes [phone] ENDOCRINOLOGY [place] presence [address] Social History Tobacco Use Types Packs/Day Years [...] (0.1 %) Aerosol, each nostril twice a [place] day SUMAtriptan (IMITREX) as needed for 1 [...] 05/01/2016 05/01/2021 20 mcg/24 hr (5 years) [id number] IUD cetirizine (ZYRTEC) 10 Take 10 mg by mouth 0 02/12/2022 mg tablet daily. tacrolimus (PROTOPIC) 1 Appl(s) Top Twice 0 08/2402/12/2022 0.1 % ointment daily KETOCONAZOLE (NIZORAL Apply topically. 0 08/24/20 10 02/12/2022 TOP) documented as of this encounter Plan of Treatment Upcoming Encounters Date Type Specialty Care Team Description 07/13/2022 Appointment Radiology Maile Hinojosa MD [facility] ENDOCRINOLOGY [place], [place] [address] (Wo rk) 07/13/2022 Office Visit Endocrinology Maile Hinojosa MD [facility] ENDOCRINOLOGY [place], [place] [address] (Wo rk) 07/25/2022 Office Visit Pulmonology Tong Norman MD [facility] Dr Cristiane Lux [place], [place] [address] (Wo rk) documented as of [...] measurements a nd plots are available in [facility] under the imaging tab. Paper copies will be sent to providers without - access. If you have received this report without doctors' hospital data sheet and do not have access to [facility], please contact Radiology [facility] at [phone] Saturday thru Saturday 8am-4pm. Thank you for [...] This is available through an interactive web-based [employer] ce (http://www.shef.ac.uk/FRAX/) and can be used to [...] measurements a nd plots are available in [employer] under the imaging tab. Paper copies will be sent to providers without E- access. If you have received this report without e data sheet and do not have access to [employer], please contact Radiology [facility] at [phone] Saturday thru Saturday 8am-4pm. Thank you for letting us participate in the care of this patient. For questions regarding this report, please contact e number below. Cuate Hall MD IMG DEXA ORDERABLES documented in this encounter Visit Diagnoses Diagnosis Osteoporosis, unspecified osteoporosis t ype, unspecified pathological fracture presence documented in this encounter Care Teams Locomotive Switch Operator Relationship Specialty Start Date End Date Janet Davey APRN PCP - General Family Medicine 06/23/18 07/12/20 [address] [place] [address] documented as of this encounter
--- OUTSIDE RECORDS SUMMARY | 2022-05-31 15:09 | XMS_ITS | Encounter Summary ---
:1965 Author Organization [facility] Address [address] [place] [address] Care Team Providers Name Role Phone Petar Janet Moss TECHNICAL STAFF ASSISTANT Primary Care Provider Reason for Visit Reason Comments Annual Exam Encounter Details Date Type Department Care Team Description 08/06/2018 Office Visit Obstetrics and Ida Ron, Encounter for Gynecology at [facility] TECHNICAL STAFF ASSISTANT gynecological [facility] [address] abnormal finding [place], [place] OBSTETRICS & [address] GYNECOLOGY [phone] [place], [place] [address] Social History Tobacco Use Types [...] 3:40 PM EST Reason for visit: Annual sr. 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 Rare spotting. [...] performed by Luis Michael Jr., MD at [facility] MAIN OR MEDICAL LAB SPECIALIST History: Pt is a 52??year old G [...] Yes Partners: Male control/protection: Surgical Comment: vasectomy/04/2016 [place] Other Topics Concern ??? Not on file Social History Narrative with 3 children. Recently moved to a new home in their town of [place], [place]. 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 Eats relatively healthy with fruits, vegetables, yogurt, and milk; minimal meat. Eats 3 meals per day, does not drink tea or coffee, and occasionally drinks soda.Her youngest is 18 yrs old, in college in [place]. The other two are out of the house. She is veryinvolved with her sons family that has lots of psycho social issues, her sons is bipolar, back issue, they have one child together, she had 3 in a previous relationship. She has not gone for counseling. 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 Lot [id number] ??? hydrocortisone (WESTCORT) 0.2 % Cream Apply [...] confirms, good tone, no hemorrhoids A: Unremarkable sr. merchandise planner exam P: F/U one yr at which time will check [facility] re: menopause documented in this encounter Plan of Treatment Upcoming Encounters Date Type Specialty Care Team Description 07/13/2022 Appointment Radiology Maile Hinojosa MD [facility] [address]MO[address] [place], [place] [address] (Wo rk) 07/13/2022 Office Visit Endocrinology Maile Hinojosa MD [facility] [address]MO[address] [place], [place] [address] (Wo rk) 07/25/2022 Office Visit Pulmonology Tong Norman MD [facility] Pulmonary Medici ne [place], [place] [address] (Wo rk) documented as of this encounter Visit Diagnoses Diagnosis Encounter for gynecological examination without abnormal finding Routine gynecological examination documented in this encounter Care Teams Hotel Or Motel Cleaning Supervisor Relationship Specialty Start Date End Date Janet Davey APRN PCP - General Family Medicine 06/23/18 07/12/20 [address] [place] [address] documented as of this encounter
--- OUTSIDE RECORDS SUMMARY | 2022-05-31 15:09 | XMS_ITS | Encounter Summary ---
:1965 Author Organization [facility] [address] Care Team Providers Name Role Phone Doreen Larios Primary Care Provider [phone] Encounter Details Date Type Department Care Team Description 06/11/2018 Office Visit Urology at [facility] Ferdinand Pennington History of [facility] MD Jules nephrolithiasis [facility] [address] UROLOGY DEPT. [phone] [place] [address] Social History Tobacco Use Types Packs/Day Years [...] Maile Hinojosa MD [facility] ENDOCRINOLOGY [place], [place] [address] (Wo silva) 07/13/2022 Office Visit Maile Matson MD [facility] [address]MO[address] [place], [place] [address] (Wo rk) 07/25/2022 Office Visit Pulmonology Tong Norman MD [facility] Pulmonary Medici [place], [place] [address] (Rahul ascencio) documented as of [...] signed by: Celine zee MD, [facility] ([phone]), at 3:56 PM ?Celine Anna, Staff Physician Electronically Signed Final Report ?? 04:04 pm Narrative 06/30/2019 4:05 PM EST Renal ? (Signed Final 06/30/2019 04:04 pm) PATIENT INFO: ID #: ? [id number] ?: ??[birth year] (53 yrs) Name: ? JESSICA GTZ ?Visit Date: 06/30/2019 03:50 pm PERFORMED BY: Performed By: ? Humberto Donnelly RDMS Attending: ?Shoshana GILL, Lela Narayan Referred By: ?[facility] Location: ? [place] SERVICE(S) PROVIDED: ??URETRO - Retroperitoneal Complete - I [id number] ? 10095 INDICATIONS: ??? stones COMPARISON: Ultrasound: Renal / [...] 04:04 pm ) PATIENT INFO: ID #: [id number] : 61 (53 y rs) Name: JESSICA GTZ Visit Date: 06/30 03:50 pm PERFORMED BY: Performed By: Humberto Donnelly RDMS Attending: Celine Anna MD Referred By: FERDINAND PENNINGTON JR Location: [place] SERVICE(S) PROVIDED: URETRO - Retroperitoneal Complete - [facility] 3517 [address] INDICATIONS: ? stones COMPARISON: Ultrasound: Renal / Bladder 06/11/18 RIGHT KIDNEY: Size (cm) L: 10.1 Cortical Thickness: Normal Cortical Echogenicity: Normal Hydronephrosis: No sonographic evidence Comment No renal calculi seen. : LEFT KIDNEY: Size (cm) L: 10.4 Cortical Thickness: Normal Cortical Echogenicity: Normal Hydronephrosis: No sonographic evidence Comment Single small nonobstructing rcissy al calculus seen : in the mid [...] signed by: Celine zee MD, [facility] ([phone]), at 3:56 PM Celine Anna, Staff Physician Electronically Signed Final Report 06/30 04:04 pm Ferdinand Pennington Jr., MD [facility] GEN ORDERABLES documented in this encounter Visit Diagnoses Diagnosis History of nephrolithiasis Personal history of urinary calculi History of nephrolithiasis Personal history of urinary calculi documented in this encounter Care Teams Java Developer Relationship Specialty Start Date End Date Doreen Larios PA PCP - General Family Medicine 05/16/18 06/22/18 documented as of this encounter
--- OUTSIDE RECORDS SUMMARY | 2022-05-31 15:09 | XMS_ITS | Encounter Summary ---
:1965 Author Organization [facility] [place] [address] Care Team Providers Name Role Phone Suzie Mcintyre APRN Primary Care Provider Encounter Details Date Type Department Care Team Description 06/18/2017 Orders Only Obstetrics and Gynecology [place] [address] Social History Tobacco Use Types Packs/Day [...] Radiology Maile Hinojosa MD [facility] [address] [place], [place] [address] (Wo rk) 07/13/2022 Office Visit Endocrinology Maile Hinojosa MD [facility] [address] [place], [place] [address] (Wo rk) 07/25/2022 Office Visit Pulmonology Tong Norman MD [facility] Pulmonary [place], [place] [address] (Wo rk) documented as of this encounter Visit Diagnoses Not on filedocumented in this encounter Care Teams Correction Officer Relationship Specialty Start Date End Date Suzie Mcintyre APRN PCP - General Family Medicine 02/28/17 06/26/17 documented as of this encounter
--- OUTSIDE RECORDS SUMMARY | 2022-05-31 15:09 | XMS_ITS | Encounter Summary ---
:1965 Author Organization [facility] [place] [address] Care Team Providers Name Role Phone Sarah Young APRN Primary Care Provider [phone] Encounter Details Date Type Department Care Team Description 06/27/2017 Orders Only Endocrinology at [facility] Cuate Pearl MD Osteoporosis, [facility] DR osteoporosis type, [place] [address] ENDOCRINOLOGY unspecified [phone] [place], [place] [address] 6 pathological fracture [phone] presence (Work) Social History Tobacco Use Types [...] Maile Hinojosa MD [facility] ER DR MARMOLEJO [place], [place] [address] (Wo rk) 07/13/2022 Office Visit Endocrinology Maile Hinojosa MD [facility] DR [address] [place], [place] [address] (Wo rk) 07/25/2022 Office Visit Pulmonology Tong Norman MD [facility] Pulmonary Medici [place], [place] [address] (Wo rk) documented as of this encounter Results Calcium (06/27/2017 3:22 PM EDT) athologist Signature Calcium 9.1 8.5 - 10.5 ALBETR BOYKIN mg/dL [facility] Specimen Anatomical Collection Method Collection Time Receive d Time (Source) Location / / Volume Laterality Blood specimen 06/27/2017 3:22 PM 017 3:29 (specimen) EDT PM EDT Resulting Agency Comment Spec In Lab Cuate Hall MD CHEMISTRY ORDERABLES Performing Organization Address City/[facility]/ZIP [place] [address] Vitamin D, 25-Hydroxy (06/27/2017 3:22 PM EDT) athologist Signature 25-OH Vit D 32 30 - 100 [facility] Total ng/mL [facility] Comment: Deficient <10 ng/mL Insufficient 10 to 29 ng/mL Sufficient 30 to 100 ng/mL Potential Intoxication >100 ng/mL According to the US National Osteoporosi s Foundation, Vitamin D concentrations >30 ng/mL are sufficient to protect bone health. ??The National Kidney Foundation has similarly stated that pat ients with Vitamin D concentrations <30ng/mL should be considered to be insu fficient or deficient. http://Eyefreight.com/nkf-guidelines http://Eyefreight.com/nejm-VitD The IDS iSYS Vitamin D Immunoassay detec [...] Organization Address City/State/[place] [address] PTH (06/27/2017 3:22 PM EDT) P athologist Signature PTH 41 15 - 65 [facility] pg/mL [facility] Specimen Anatomical Collection Method Collection Time Receive d Time (Source) Location / / Volume Laterality Blood specimen 06/27/2017 3:22 PM 017 3:29 (specimen) EDT PM EDT Resulting Agency Comment Spec In Lab Cuate Hall MD CHEMISTRY ORDERABLES Performing Organization Address City/[facility]/[place] [address] documented in this encounter Visit Diagnoses Diagnosis Osteoporosis, unspecified osteoporosis t ype, unspecified pathological fracture presence documented in this encounter Care Teams Coin Rolling Machine Operator Relationship Specialty Start Date End Date Sarah Young APRN PCP - General Family Medicine 06/27/17 05/15/18 [address] [place] [address] documented as of this encounter
--- OUTSIDE RECORDS SUMMARY | 2022-05-31 15:09 | XMS_ITS | Encounter Summary ---
:1965 Author Organization [place] [address] Care Team Providers Name Role Phone Suzie Mcintyre APRN Primary Care Provider Encounter Details Date Type Department Care Team Description 04/18/2017 Hospital Encounter Same Day Program at Luis Michael Nephrolithiasis Marley Painter Jr., MD [facility] DR Camacho UROLOGY DEPT. [place], [place] [address] [phone] Social History Tobacco Use Types Packs/Day Years [...] directed NASONEX 50 mcg/actuation 0 05/18/2016 06/11/2018 [place], Non-Aerosol levonorgestrel (MIRENA) 1 each by Intrauterine route once. Lot [id number] 0 05/01/2016 05/01/2021 20 mcg/24 hr (5 years) [id number] IUD omeprazole (PRILOSEC) 20 PRN 0 03/22/2016 [...] 8 patch 11 ??? NASONEX 50 mcg/actuation [place], Non-Aerosol 0 ??? SUMAtriptan (IMITREX) 100 mg Tablet as needed for Migraine. 1 ??? levonorgestrel (MIRENA) 20 mcg/24 hr (5 years) IUD 1 each by Intrauterine route once. Lot [id number] ??? multivitamin (THERAGRAN) tablet Take 1 tablet [...] Perez MD - 04/18/2017 1:31 PM EDT [facility] Operative Note Patient Name: Stacy Albright : [id number] MR#: [id number] Case Date: 04/18/2017 Surgeon: Surgeon(s) and Role: [...] US prior. Brief Op Note - Neil Preez MD - 04/18/2017 1:30 PM EDT Brief Operative Note Patient Name: Stacy Albright : [id number] MR#: [id number] Case Date: 04/18/2017 Surgeon: Surgeon(s) and Role: [...] 07/13/2022 Appointment Radiology Maile Hinojosa MD [facility] MEDICAL [facility] DR [place], [place] [address] (Wo rk) 07/13/2022 Office Visit Endocrinology Maile Hinojosa MD [facility] MEDICAL [facility] ENDOCRINOLOGY [place], [place] [address] (Wo silva) 07/25/2022 Office Visit Pulmonology Tong Norman MD [facility] er Pulmonary Medici [place], [place] [address] (Wo rk) documented as of [...] Component Value Ref Test Analysis Performed At [facility] Range Method Time Signature Surgical [id number] ? Location: [facility]; [facility]; [facility] Report The signing pathologist has (i) [...] Organization Address City/State/[place] [address] Specimen to Pathology (surgical or derm) (04/18/2017 1:17 PM EDT) Specimen Anatomical Collection Method Collection Time Receive d Time (Source) Location / / Volume Laterality AP Specimen 04/18/2017 1:17 PM 7 1:17 EDT PM EDT Narrative [facility] - 04/18/2017 1:17 PM EDT Specimen requisition ordered. ??Separate Pathology report to follow Luis Michael Jr., MD PATHOLOGY/CYTOLOGY ORDERABLE S Performing Organization Address City/[facility]/[place] [address] documented in this encounter [...] Provider: Romy Ballesteros MD) 2 g, Intravenous, COMMISSARY STEWARD TO O.R., 1 dos e, Shanta 04/18/17 [...] Routine documented in this encounter Care Teams Patient Financial Services Coordinator Relationship Specialty Start Date End Date Suzie Mcintyre APRN PCP - General Family Medicine 02/28/17 06/26/17 documented as of this encounter
--- OUTSIDE RECORDS SUMMARY | 2022-05-31 15:09 | XMS_ITS | Encounter Summary ---
:1965 Author Organization [facility] [place] [address] Care Team Providers Name Role Phone Janet Davey Isa GONCALVES Primary Care Provider Reason for Visit Reason Comments Nephrolithiasis Encounter Details Date Type Department Care Team Description 06/30/2019 [place] Visit [place] [facility] [place] Michael Jr., Nephrolithiasis [facility] [place] [address] [facility] [phone] UROLOGY DEPT. [place], [place] [address] (Wo rk) Social History [...] 06/30/2019 4:30 PM EST HPI Ms. Jessica Gtz is a pleasant 53-year-old who returns for [...] Appointment Radiology Maile Hinojosa MD [facility] [address] [place], [place] [address] (Wo rk) 07/13/2022 Office Visit Maile Matson MD [facility] [address] [place], [place] [address] (Wo rk) 07/25/2022 Office Visit Pulmonology Tong Norman MD [facility] Pulmonary Medici [place], [place] [address] (Wo rk) documented as of this encounter [...] below. Electronically signed by: Antoinette Lawson, Radiology [place] ([phone]), at 8:56 AM ?Mallika Galindo, [facility] Chief Electronically Signed Final Report ?? 09:02 am Narrative 07/13/2020 9:03 AM EST Renal ? (Signed Final 07/13/2020 09:02 am) PATIENT INFO: ID #: ? [id number] ?: ??[birth year] (54 yrs)(F) Name: ? JESSICA GTZ ?Visit Date: 07/13/2020 07:58 am PERFORMED BY: Performed By: ? Jolene Alexander RDMS Attending: ?Mateo GILL, Mallika Ribera Referred By: ?FERDINAND MICHAEL Location: ? [place] SERVICE(S) PROVIDED: ??URETRO - Retroperitoneal Complete - I [id number] ? [address] INDICATIONS: ??? stones COMPARISON: Ultrasound: 06/30/19 RIGHT [...] 09:02 am ) PATIENT INFO: ID #: [id number] : [birth year] (54 y rs)(F) Name: JESSICA GTZ Visit Date: 07/13 07:58 am PERFORMED BY: Performed By: Sidra Alexander RDMS Attending: Mallika Galindo MD Referred By: FERDINAND MICHAEL Location: [place] SERVICE(S) PROVIDED: URETRO - Retroperitoneal Complete - [facility] 3517 [address] INDICATIONS: ? stones COMPARISON: Ultrasound: 06/30/19 RIGHT [...] For questions regarding this report, please contact deondre whitman number below. Electronically signed by: Antoinette Lawson, Radiology [place] ([phone]), at 8:56 AM Mallika Galindo, Rn Liaison Electronically Signed Final Report 07/13 09:02 am Ferdinand Michael Jr., MD IM US GEN ORDERABLES documented in this encounter Visit Diagnoses Diagnosis Nephrolithiasis Calculus of kidney Nephrolithiasis Calculus of kidney documented in this encounter Care Teams Rent Collector Relationship Specialty Start Date End Date Janet Davey, DATABASE TECHNICIAN PCP - General Family Medicine 06/23/18 07/12/20 [address] [place] [address] documented as of this encounter
--- OUTSIDE RECORDS SUMMARY | 2022-05-31 15:09 | XMS_ITS | Encounter Summary ---
:1965 Author Organization [facility] [place] [address] Care Team Providers Name Role Phone Doreen Larios Primary Care Provider [phone] Encounter Details Date Type Department Care Team Description 06/11/2018 Hospital Encounter Ultrasound at [facility] Ferdinand Pennington Nephrolithiasis [facility] [place] [address] UROLOGY DEPT. [phone] [place], [place] [address] Social History Tobacco Use Types [...] (0.1 %) Aerosol, each nostril twice a [place] day SUMAtriptan (IMITREX) as needed for 1 [...] 05/01/2016 05/01/2021 20 mcg/24 hr (5 years) [id number] IUD omeprazole (PRILOSEC) 20 PRN 0 03/22/2016 [...] Appointment Radiology Maile Hinojosa MD [facility] ENDOCRINOLOGY [place], [place] [address] (Wo rk) 07/13/2022 Office Visit Endocrinology Maile Hinojosa MD [facility] ER ENDOCRINOLOGY [place], [place] [address] (Wo rk) 07/25/2022 Office Visit Pulmonology Tong Norman MD [facility] Pulmonary Mediceduardo ne [place], [place] [address] (Wo rk) documented as of [...] 03:13 pm) PATIENT INFO: ID #: ? [id number] ?: ??[birth year] (52 yrs) Name: ? JESSICA GTZ ?Visit Date: 06/11/2018 03:00 pm PERFORMED BY: Performed By: ? Keya Hedrick RDMS Attending: ?Mallika Galindo MD Referred By: ?FERDINAND PENNINGTON JR Location: ? [place] SERVICE(S) PROVIDED: ??URETRO - Retroperitoneal Complete - I [id number] ? [address] INDICATIONS: ??h/o renal stones; eval interval laird [...] 03:13 pm ) PATIENT INFO: ID #: [id number] : [birth year] (52 y rs) Name: JESSICA GTZ Visit Date: 06/11 03:00 pm PERFORMED BY: Performed By: Chetna Hedrick RDMS Attending: Mallika Galindo MD Referred By: FERDINAND PENNINGTON Location: [place] SERVICE(S) PROVIDED: URETRO - Retroperitoneal Complete - [facility] [place]17 [address] INDICATIONS: h/o renal stones; eval interval change [...] kidney documented in this encounter Care Teams Hot Walker Relationship Specialty Start Date End Date Doreen Larios PA PCP - General Family Medicine 05/16/18 06/22/18 documented as of this encounter
--- OUTSIDE RECORDS SUMMARY | 2022-05-31 15:09 | XMS_ITS | Encounter Summary ---
:1965 Author Organization [facility] [place] [address] Care Team Providers Name Role Phone Petar Janet Isa GONCALVES Primary Care Provider Encounter Details Date Type Department Care Team Description 06/30/2019 Hospital Encounter Ultrasound at [facility] Ferdinand Pennington History of [facility] MD Jules nephrolithiasis [facility] [address] UROLOGY DEPT. [phone] [place] [address] Social History Tobacco Use Types Packs/Day Years [...] (0.1 %) Aerosol, each nostril twice a [place] day SUMAtriptan (IMITREX) as needed for 1 [...] 05/01/2016 05/01/2021 20 mcg/24 hr (5 years) [id number] IUD cetirizine (ZYRTEC) 10 Take 10 mg by mouth 0 02/12/2022 mg tablet daily. tacrolimus (PROTOPIC) 1 Appl(s) Top Twice 0 08/2402/12/2022 0.1 % ointment daily KETOCONAZOLE (NIZORAL Apply topically. 0 08/24/20 10 02/12/2022 TOP) documented as of this encounter Plan of Treatment Upcoming Encounters Date Type Specialty Care Team Description 07/13/2022 Appointment Radiology Maile Hinojosa MD [facility] ENDOCRINOLOGY [place], [place] [address] (Wo rk) 07/13/2022 Office Visit Endocrinology Maile Hinojosa MD [facility] DR MARMOLEJO [place], [place] [address] (Wo rk) 07/25/2022 Office Visit Pulmonology Tong Norman MD [facility] Pulmonary Medici ne [place], [place] [address] (Wo rk) documented as of this encounter [...] Electronically signed by: Celine zee MD, Radiology [place] ([phone]), at 3:56 PM ?Celine Anna, Staff Physician Electronically Signed Final Report ?? 04:04 pm Narrative 06/30/2019 4:05 PM EST Renal ? (Signed Final 06/30/2019 04:04 pm) PATIENT INFO: ID #: ? [id number] ?: ??[birth year] (53 yrs) Name: ? JESSICA Melvin GTZ ?Visit Date: 06/30/2019 03:50 pm PERFORMED BY: Performed By: ? Humberto Donnelly RDMS Attending: ?Shoshana GILL, There J. Referred By: ?FERDINAND PENNINGTON JR Location: ? [place] SERVICE(S) PROVIDED: ??URETRO - Retroperitoneal Complete - I [id number] ? [address] INDICATIONS: ??? stones COMPARISON: Ultrasound: Renal / [...] 04:04 pm ) PATIENT INFO: ID #: [id number] : 61 (53 y rs) Name: JESSICA GTZ Visit Date: 06/30 03:50 pm PERFORMED BY: Performed By: Humberto Donnelly RDMS Attending: Celine Anna MD Referred By: FERDINAND PENNINGTON Location: [place] SERVICE(S) PROVIDED: URETRO - Retroperitoneal Complete - [facility] [place]17 [address] INDICATIONS: ? stones COMPARISON: Ultrasound: Renal / [...] below. Electronically signed by: Celine zee MD, [facility] ([phone]), at 3:56 PM Celine Anna, Staff Physician Electronically Signed Final Report 06/30 04:04 pm Ferdinand Pennington Jr., MD IMG GEN ORDERABLES documented in this encounter Visit Diagnoses Diagnosis History of nephrolithiasis Personal history of urinary calculi documented in this encounter Care Teams Wireless Architect Relationship Specialty Start Date End Date Janet Davey APRN PCP - General Family Medicine 06/23/18 07/12/20 [address] [place] [address] documented as of this encounter
--- OUTSIDE RECORDS SUMMARY | 2022-05-31 15:09 | XMS_ITS | Encounter Summary ---
:1965 Author Organization [facility] Address [address] [facility] [place] [address] Care Team Providers Name Role Phone Sarah Young APRN Primary Care Provider Encounter Details Date Type Department Care Team Description 08/05/2017 Hospital Encounter Mammography at [facility] Ida Ron, Encounter for [facility] SOCIAL SERVICE DIRECTOR screening mammogram Drive [facility] for breast cancer [place], [place] CENTER [address] OBSTETRICS & [phone] GYNECOLOGY [place] [id number] Social History Tobacco Use Types Packs/Day Years [...] (0.1 %) Aerosol, each nostril twice a [place] day SUMAtriptan (IMITREX) as needed for 1 [...] morning. NASONEX 50 mcg/actuation 0 05/18/2016 06/11/2018 [place], Non-Aerosol levonorgestrel (MIRENA) 1 each by Intrauterine route once. Lot tu01 8ac 0 05/01/2016 05/01/2021 20 mcg/24 hr (5 years) [id number] IUD omeprazole (PRILOSEC) 20 PRN 0 03/22/2016 [...] [facility] [address] [place], [place] [address] (Wo rk) 07/13/2022 Office Visit Endocrinology Maile Hinojosa MD [facility] DR [place]EL [place], [place] [address] (Wo rk) 07/25/2022 Office Visit Pulmonology Tong Norman MD [facility] Pulmonary Medici ne [place], [place] [address] (Wo rk) documented as of [...] No mammographic evidence of malignancy. RECOMMENDATION: The [place] [employer] and The Society of [...] cancer documented in this encounter Care Teams Harvest Field Ticketer Relationship Specialty Start Date End Date Sarah Young APRN PCP - General Family Medicine 06/27/17 05/15/18 [address] [place] [address] documented as of this encounter
--- OUTSIDE RECORDS SUMMARY | 2022-05-31 15:09 | XMS_ITS | Encounter Summary ---
:1965 Author Organization [facility] [place] [address] Care Team Providers Name Role Phone EdJanet mendez Isa GONCALVES Primary Care Provider Reason for Visit Reason Onset Date Comments Medication Refill 07/10/2018 Encounter Details Date Type Department Care Team Description 07/10/2018 Refill Obstetrics and Gynec ology at [place] [address] Social History Tobacco Use Types Packs/Day Years [...] [facility] ER DR MARMOLEJO [place], [place] [address] (Wo rk) 07/13/2022 Office Visit Endocrinology Maile Hinojosa MD [facility] ER ENDOCRINOLOGY [place], [place] [address] (Wo rk) 07/25/2022 Office Visit Pulmonology Tong Norman MD [facility] Pulmonary Medici [place], [place] [address] (Wo rk) documented as of this encounter Visit Diagnoses Not on filedocumented in this encounter Care Teams Smoked Meat Preparer Relationship Specialty Start Date End Date Janet Davey APRN PCP - General Family Medicine 06/23/18 07/12/20 [address] [place] [address] documented as of this encounter
--- OUTSIDE RECORDS SUMMARY | 2022-05-31 15:09 | XMS_ITS | Encounter Summary ---
:1965 [place] [address] Care Team Providers Name Role Phone Suzie Mcintyre APRN Primary Care Provider Encounter Details Date Type Department Care Team Description 04/18/2017 Anesthesia Event Main Operating Room Isa Santiago Ed [facility] MD [facility] Victor Manuel [place] [address] [place] [address] [phone] (Wo rk) Anesthesia Record Procedure Summary Procedure [...] the patient's medica l history, current anesthetic/surgi benea status and plan, according to the Provider [...] KEON Peñaloza, Belle Estrada, KEON swartz), left; gkde-wsq-fjhzja catheter system; 20 gauge; Marisol; distraction, intradermal [...] Ballesteros MD - 04/18/2017 3:30 PM EDT [facility] Department of Anesthesiology Post-procedure Note Patient: Stacy Albright Procedure Summary Date Anesthesia Start Anesthesia Stop Room / Location 04/18/17 1247 1343 MH OR 28 / [facility] MAIN OR Procedure Diagnosis Surgeon Responsible Provider CYSTO, FULGURATION\BLADDER LESION\W\WO BX\LESS THAN 0.5CM (WRVU 4.05) (N/A Bladder) (small bladder lesion) Luis Michael Jr., MD Chaimberg, Kathleen H, MD All Anesthesia Providers: Anesthesiologist: Marcelle Marquez MD Tray Filler: Romy Ballesteros MD Last (1hr) Vitals: BP 118/80 (04/18/17 1445) Temp Pulse Resp SpO2 99 % (04/18/17 1500) Patient Location: PACU[facility] Level of Consciousness: Awake and Alert [...] History: Procedure Laterality Date ??? CREATED BY [employer].S.W.LJoseph([employer]) Procedure Date: 01/16/2008 ??? KNEE SURGERY 03/01/14 [...] Hinojosa MD [facility] [address] MARMO[address] [place], [place] [address] (Rahul ascencio) 07/13/2022 Office Visit Maile Matson MD [facility] [address] [place], [place] [address] (Rahul ascencio) 07/25/2022 Office Visit Pulmonology Tong Norman MD [facility] Pulmonary Medici [place], [place] [address] (Rahul ascencio) documented as of this encounter Visit Diagnoses Not on filedocumented in this encounter Administered Medications Inactive Administered Medications - up to 3 most recent administrations Medication Order MAR Action Action Date Dose Rate Site ceFAZolin (ANCEF) 2g in dextrose 5% Given 04/18/2017 1:08 PM EDT 2 g 100 mL 2 g, Intravenous, TASSEL MAKING MACHINE OPERATOR TO O.R., 1 dose, On Shanta 04/18/17 [...] Routine documented in this encounter Care Teams Cad Technician Relationship Specialty Start Date End Date Suzie Mcintyre APRN PCP - General Family Medicine 02/28/17 06/26/17 documented as of this encounter
--- OUTSIDE RECORDS SUMMARY | 2022-05-31 15:09 | XMS_ITS | Encounter Summary ---
:1965 Author Organization [facility] Address [address] [place] [address] Care Team Providers Name Role Phone Janet Davey ONSITE HEALTH COACH Primary Care Provider Encounter Details Date Type Department Care Team Description 08/06/2018 Hospital Encounter Mammography at [facility] Janet Davey, Visit for screening [facility] mammogram [address] [place] [address] [facility] [address] [place] [address] Social History Tobacco Use Types Packs/Day [...] (0.1 %) Aerosol, each nostril twice a [place] day SUMAtriptan (IMITREX) as needed for 1 [...] 05/01/2016 05/01/2021 20 mcg/24 hr (5 years) [id number] IUD cetirizine (ZYRTEC) 10 Take 10 mg by mouth 0 02/12/2022 mg tablet daily. tacrolimus (PROTOPIC) 1 Appl(s) Top Twice 0 08/2402/12/2022 0.1 % ointment daily KETOCONAZOLE (NIZORAL Apply topically. 0 08/24/20 10 02/12/2022 TOP) documented as of this encounter Plan of Treatment Upcoming Encounters Date Type Specialty Care Team Description 07/13/2022 Appointment Radiology Maile Hinojosa MD [facility] ENDOCRINOLOGY [place], [place] [address] (Wo rk) 07/13/2022 Office Visit Endocrinology Maile Hinojosa MD [facility] ENDO[facility] [place], [place] [address] (Wo rk) 07/25/2022 Office Visit Pulmonology Tong Nomran MD [facility] Pulmonary Medici [place], [place] [address] (Wo rk) documented as [...] mammogram documented in this encounter Care Teams Yardmaster Relationship Specialty Start Date End Date Janet Davey APRN PCP - General Family Medicine 06/23/18 07/12/20 [address] [place] [address] documented as of this encounter
--- OUTSIDE RECORDS SUMMARY | 2022-05-31 15:09 | XMS_ITS | Encounter Summary ---
:1965 Author Organization [facility] [place] [address] Care Team Providers Name Role Phone Janet Davey APRN Primary Care Provider Encounter Details Date Type Department Care Team Description 08/15/2018 Hospital Encounter Mammography at [facility] Rose Tineo, Abnormal finding on [facility] MD breast imaging [facility] [address] NUCLEAR MEDICINE [phone] [place] [address] Social History Tobacco Use Types Packs/Day Years [...] (0.1 %) Aerosol, each nostril twice a [place] day SUMAtriptan (IMITREX) as needed for 1 [...] 05/01/2016 05/01/2021 20 mcg/24 hr (5 years) [id number] IUD cetirizine (ZYRTEC) 10 Take 10 mg by mouth 0 02/12/2022 mg tablet daily. tacrolimus (PROTOPIC) 1 Appl(s) Top Twice 0 08/2402/12/2022 0.1 % ointment daily KETOCONAZOLE (NIZORAL Apply topically. 0 08/24/20 10 02/12/2022 TOP) documented as of this encounter Plan of Treatment Upcoming Encounters Date Type Specialty Care Team Description 07/13/2022 Appointment Radiology Maile Hinojosa MD [facility] ENDOCRINOLOGY [place], [place] [address] (Wo rk) 07/13/2022 Office Visit Endocrinology Maile Hinojosa MD [facility] ENDOCRINOLOGY [place], [place] [address] (Wo rk) 07/25/2022 Office Visit Pulmonology Tong Norman MD [facility] Pulmonary Medici [place], [place] [address] (Wo rk) documented as of [...] Right breast: BI-RADS 1, negative. * ??[employer] an d The Society [...] breast documented in this encounter Care Teams Supply Chain Manager Relationship Specialty Start Date End Date Janet Davey, FUNDING ANALYST PCP - General Family Medicine 06/23/18 07/12/20 [address] [place] [address] documented as of this encounter
--- OUTSIDE RECORDS SUMMARY | 2022-05-31 15:09 | XMS_ITS | Encounter Summary ---
:1965 Author Organization [facility] [place] [address] Care Team Providers Name Role Phone Suzie Mcintyre APRN Primary Care Provider Reason for Visit Reason Comments Follow-up Encounter Details Date Type Department Care Team Description 04/09/2017 Office Visit Urology at [facility] Luis Michael History of renal stone [facility] [place] [address] [address]OLOG[address] DEPT. [phone] [place], [place] [address] Social History Tobacco Use Types [...] to void please call our office at [phone] before 5PM or [phone] after hours. Please call if: * you have copious blood in your urine * fevers greater than 101.3 F * you are unable to void The number for questions is [phone] before 5 PM weekdays and [phone] after 5 PM and weekends. Follow-up: with [...] negative cysto, I also suggested she undergo PHOTOGRAPHIC PRINTER evaluation to assess for possible PHOTOGRAPHIC PRINTER source for bloody spotting. In the interval [...] Description 07/13/2022 Appointment Radiology Maile Hinojosa MD [facility] DR MARMOLE[address] [place], [place] [address] (Wo rk) 07/13/2022 Office Visit Endocrinology Maile Hinojosa MD [facility] DR MARMOLE[address] [place], [place] [address] (Wo rk) 07/25/2022 Office Visit Pulmonology Tong Norman MD [facility] Pulmonary Medici ne [place], [place] [address] (Wo rk) documented as of [...] calculi documented in this encounter Care Teams Associate Medical Director Relationship Specialty Start Date End Date Suzie Mcintyre APRN PCP - General Family Medicine 02/28/17 06/26/17 documented as of this encounter
--- OUTSIDE RECORDS SUMMARY | 2022-05-31 15:09 | XMS_ITS | Encounter Summary ---
:1965 Author Organization [facility] [place] [address] Care Team Providers Name Role Phone Doreen Larios Primary Care Provider [phone] Encounter Details Date Type Department Care Team Description 06/10/2018 Orders Only Urology at [facility] Ferdinand Pennington Jr., Nephrolithiasis [facility] Victor [place] [address] [facility] [phone] UROLOGY DEPT. [place], [place] [address] (Wo rk) Social History Tobacco [...] [facility] ER DR MARMOLEJO [place], [place] [address] (Wo rk) 07/13/2022 Office Visit Endocrinology Maile Hinojosa MD [facility] ENDOCRINOLOGY [place], [place] [address] (Wo rk) 07/25/2022 Office Visit Pulmonology Tong Norman MD [facility] er Pulmonary Medici [place] [address] (Wo rk) documented as of this encounter Results US Retroperitoneal Complete (06/11/2018 [...] 03:13 pm) PATIENT INFO: ID #: ? [id number] ?: ??[birth year] (52 yrs) Name: ? JESSICA GTZ ?Visit Date: 06/11/2018 03:00 pm PERFORMED BY: Performed By: ? Keya Hedrick RDMS Attending: ?[place]leMallika valdez MD. Referred By: ?FERDINAND Curry GORGE OLMEDO Location: ? [place] SERVICE(S) PROVIDED: ??URETRO - Retroperitoneal Complete - I [id number] ? [id number] INDICATIONS: ??h/o renal stones; eval interval laird [...] 03:13 pm ) PATIENT INFO: ID #: [id number] : [birth year] (52 y rs) Name: JESSICA GTZ Visit Date: 06/11 03:00 pm PERFORMED BY: Performed By: Chetna Hedrick RDMS Attending: Mallika Galindo MD Referred By: FERDINAND PENNINGTON JR Location: [place] SERVICE(S) PROVIDED: URETRO - Retroperitoneal Complete - [facility] [id number] INDICATIONS: h/o renal stones; eval interval change [...] 06/11 03:13 pm Ferdinand Pennington Jr., MD [facility] GEN ORDERABLES documented in this encounter Visit Diagnoses Diagnosis Nephrolithiasis Calculus of kidney Nephrolithiasis Calculus of kidney documented in this encounter Care Teams Grounds Crew Supervisor Relationship Specialty Start Date End Date Doreen Larios PA PCP - General Family Medicine 05/16/18 06/22/18 documented as of this encounter
--- OUTSIDE RECORDS SUMMARY | 2022-05-31 15:09 | XMS_ITS | Encounter Summary ---
:1965 Author Organization [facility] [place] [address] Care Team Providers Name Role Phone Suzie Mcintyre APRN Primary Care Provider Reason for Visit Reason Comments Hematuria Encounter Details Date Type Department Care Team Description 04/09/2017 Office Visit Urology at [facility] Luis Michael Microscopic hematuria [facility] [place] [address] UROLOGY DEPT. [phone] [place], [place] [address] Social History Tobacco Use Types [...] Hinojosa MD [facility] ENDOCRINOLOGY [place], [place] [address] (Wo rk) 07/13/2022 Office Visit Endocrinology Maile Hinojosa MD [facility] DR MARMO[address] [place], [place] [address] (Wo rk) 07/25/2022 Office Visit Pulmonology Tong Norman MD [facility] Pulmonary Medici ne [place], [place] [address] (Wo rk) documented as of this encounter Procedures Procedure Name Priority Date/Time Associated Diagnosis Comme nts CYSTOSCOPY Routine 04/09/2017 10:36 AM History of renal Resu lts for this EDT stone procedure are i n the results section . documented in this encounter Visit Diagnoses Diagnosis Microscopic hematuria documented in this encounter Care Teams Commercial Litigation Attorney Relationship Specialty Start Date End Date Suzie Mcintyre APRN PCP - General Family Medicine 02/28/17 06/26/17 documented as of this encounter
--- OUTSIDE RECORDS SUMMARY | 2022-05-31 15:09 | XMS_ITS | Encounter Summary ---
:1965 Author Organization [facility] Address [address] [place] [address] Care Team Providers Name Role Phone EdJanet mendez Isa GONCALVES Primary Care Provider Reason for Referral Diagnostic Test (Routine) - Closed Specialty Diagnoses / Procedures Referred By Contact Refer red To Contact Radiology Diagnoses Osteoporosis, unspecified osteoporosis type, unspecified pathological fracture presence Cuate Hall MD [facility] Rad Xray Procedures DXA Central Spine, Hip, and/or Whole Body (Generic) [facility] [address] [place] [address] [place] [address] [place] [address] Referral ID Status Reason Start Date Expiration Date Visits V isits Requested Authorized [id number] Closed Specialty 03/14/2020 09/14/2021 1 1 Service Requested Encounter Details Date Type Department Care Team Description 03/14/2020 Orders Only Endocrinology at [facility] Cuate Pearl MD Osteoporosis, [facility] osteoporosis type, [place] [address] ENDOCRINOLOGY unspecified [phone] [place], [place] [address] pathological fracture [phone] presence (Work) Social History Tobacco Use Types [...] Hinojosa MD [facility] ENDO[facility]OLOG[facility] [place], [place] [address] (Wo rk) 07/13/2022 Office Visit Endocrinology Maile Hinojosa MD [facility] ENDOCRINOLOGY [place], [place] [address] (Wo rk) 07/25/2022 Office Visit Pulmonology Tong [facility] MD [facility] Pulmonary Medici ne [place], [place] [address] (Wo rk) documented as of [...] This is available through an interactive web-based [employer] (http://www.shef.ac.uk/FRAX/) and can be used to [...] measurements a nd plots are available in [employer] under the imaging tab. Paper copies will be sent to providers without E- access. If you have received this report without e data sheet and do not have access to [employer], please contact Radiology Transcrip tion at [phone] Saturday thru Saturday 8am-4pm. Thank you for [...] This is available through an interactive web-based [employer] (http://www.shef.ac.uk/FRAX/) and can be used to [...] measurements a nd plots are available in [employer] under the imaging tab. Paper copies will be sent to providers without E- access. If you have received this report without e data sheet and do not have access to [employer], please contact Radiology [facility] at [phone] Saturday thru Saturday 8am-4pm. Thank you for letting us participate in the care of this patient. For questions regarding this report, please contact e number below. Cuate Hall MD IMG DEXA ORDERABLES documented in this encounter Visit Diagnoses Diagnosis Osteoporosis, unspecified osteoporosis t ype, unspecified pathological fracture presence Osteoporosis, unspecified osteoporosis t ype, unspecified pathological fracture presence documented in this encounter Care Teams Geography Department Chair Relationship Specialty Start Date End Date Janet Davey, TARIFF COUNSEL PCP - General Family Medicine 06/23/18 07/12/20 [address] [place] [address] documented as of this encounter
--- OUTSIDE RECORDS SUMMARY | 2022-05-31 15:09 | XMS_ITS | Encounter Summary ---
:1965 Author Organization [facility] Address [address] [place] [address] Care Team Providers Name Role Phone Sarah Young APRN Primary Care Provider [phone] Encounter Details Date Type Department Care Team Description 06/27/2017 Hospital Encounter XRay at [facility] Cuate Hall, Osteoporosis, [address] [place] unspecified [place], [place] [facility] osteoporosis [place] , [address] funes [phone] ENDOCRINOLOGY pathological fracture [place] presence [address] Social History Tobacco Use [...] (0.1 %) Aerosol, each nostril twice a [place] day SUMAtriptan (IMITREX) as needed for 1 [...] morning. NASONEX 50 mcg/actuation 0 05/18/2016 06/11/2018 [place], Non-Aerosol levonorgestrel (MIRENA) 1 each by Intrauterine route once. Lot tu01 8ac 0 05/01/2016 05/01/2021 20 mcg/24 hr (5 years) [id number] IUD omeprazole (PRILOSEC) 20 PRN 0 03/22/2016 [...] Hinojosa MD [facility] ENDOCR[facility]OLOG[facility] [place], [place] [address] (Wo rk) 07/13/2022 Office Visit Endocrinology Maile Hinojosa MD [facility] ENDOCRINOLOGY [place], [place] [address] (Wo rk) 07/25/2022 Office Visit Pulmonology Tong Norman MD [facility] Pulmonary Medici ne [place], [place] [address] (Wo rk) documented as of [...] sheet and do not have access to [employer], please contact Radiology Transcrip tion at [phone] Saturday thru Saturday 8am-4pm. Narrative 06/27/2017 4:50 [...] icant change. The measured changes in comparison [facility] study are not large enough in [...] esau mbar spine and left hip. Densitometer: [employer] A FINDINGS: Lowest T-score at the diagnost [...] icant change. The measured changes in comparison [facility] study are not large enough in [...] This is available through an interactive web-based [employer] (http://www.shef.ac.uk/FRAX/) and can be used to [...] measurements an d plots are available in [employer] under the imaging tab. Paper copies will be sent to providers without E- access. If you have received this report without th e data sheet and do not have access to [employer], please contact Radiology Transcrip tion at [phone] Saturday thru Saturday 8am-4pm. Cuate Hall MD IMG DEXA ORDERABLES documented in this encounter Visit Diagnoses Diagnosis Osteoporosis, unspecified osteoporosis t ype, unspecified pathological fracture presence documented in this encounter Care Teams Pantograph I Engraver Relationship Specialty Start Date End Date Sarah Young APRN PCP - General Family Medicine 06/27/17 05/15/18 [address] [place] [address] documented as of this encounter
--- OUTSIDE RECORDS SUMMARY | 2022-05-31 15:09 | XMS_ITS | Encounter Summary ---
:1965 Author Organization [facility] [place] [address] Care Team Providers Name Role Phone Janet Davey APRN Primary Care Provider Reason for Visit Reason Comments Medication Refill Encounter Details Date Type Department Care Team Description 09/16/2019 [facility] Victor Manuel cifuentes OBSTETRICS & [place] [address] [place] [address] [phone] (Wo rk) Social History Tobacco Use Types [...] Description 07/13/2022 Appointment Radiology Maile Hinojosa MD [facility] [address]MOLE[address] [place], [place] [address] (Wo rk) 07/13/2022 Office Visit Endocrinology Maile Hinojosa MD [facility] DR MARMOLE[address] [place], [place] [address] (Wo rk) 07/25/2022 Office Visit Pulmonology Tong Norman MD [facility] Pulmonary Medici [place], [place] [address] (Wo rk) documented as of this encounter Visit Diagnoses Not on filedocumented in this encounter Care Teams Digital Technician Relationship Specialty Start Date End Date Janet Davey, JOINER PCP - General Family Medicine 06/23/18 07/12/20 [address] [place] [address] documented as of this encounter
--- OUTSIDE RECORDS SUMMARY | 2022-05-31 15:09 | XMS_ITS | Encounter Summary ---
:1965 Author Organization [facility] [place] [address] Care Team Providers Name Role Phone Sarah Young APRN Primary Care Provider [phone] Reason for Visit Reason Comments Cognitive Problems Neuropsychological Re-evalua tion Consultation (Routine) - Closed Specialty Diagnoses / Procedures Referred By Contact Refer red To Contact Psychiatry Diagnoses [facility] Suzie Mcintyre, Salvador Kim, PhD Procedures PRO NEUROPSYCHOLOGICAL TESTING,PER HOUR BY FAMILY COURT COUNSELLOR MOE TUCKER [address]. [facility] [address] [address] [place] [address] Fax: Referral ID Status Reason Start Date Expiration Date Visits V isits Requested Authorized [id number] Closed Consult & 02/28/2017 02/28/2018 1 1 [facility] Encounter Details Date Type Department Care Team Description 08/15/2017 Office Visit Psychiatry and Jessica Shelton los s; Behavioral Health at A, PhD Mild neurocognitive disorder [facility] NEUROPSYCHOLOGY [facility] DEPT. 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 REASON FOR REFERRAL AND BACKGROUND This is Stacy Albright???s second [facility] neuropsychological evaluation. She was referred for reassessment [...] of grades. 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 She is and has been remarried for [...] Ms. Albright completed a neuropsychological evaluation at [facility] on09/12/2016 (Christine aRza PsyD and Salvador Palmer, PhD). Results revealed [...] Anxiety Inventory (VLADIMIR); Avila Depression Inventory-II (BDI-II); [place] Naming Test (BNT); Brief Visuospatial Memory Test- Revised (BVMT-R); [place] Verbal Learning Test, Second Edition(CVLT-II); Comprehension of Complex Ideational Material (from BDAE; [place] Diagnostic Aphasia Examination); Trudy-Antony Executive Function System (D-KEFS, selected subtests); Grooved Pegboard Test; Lateral Dominance Examination; Paced Auditory Serial Addition Test (PASAT, Lorenz version); Florentin Complex Figure Test (RCFT); Kinder Making Test; Nima Adult Intelligence Scale - 4th edition (WAIS-IV); Nima Memory Scale, Fourth Edition (WMS-IV, selected subtests); [place] Card Sorting Test (WCST). Total time spent in testing, interpretation, and report writin hours, 30 minutes TEST RESULTS: Note: All tests were administered by a pathological technician. Descriptors are based on appropriate normativedata and [...] Recall 12/09 04/10 Borderline Short-Delay Cued Recall 02/0816 Average Long [...] Average 2 sec. pacing 39/60 36/60 Average Kinder Making Test: Raw Score (T Score) Raw [...] Neuropsychology Board Certified Clinical Neuropsychologist Licensed Psychologist trailer chief A postdoctoral fellow in neuropsychology was involved [...] [facility] [address]MO[address] [place], [place] [address] (Wo rk) 07/13/2022 Office Visit Endocrinology Maile Hinojosa MD [facility] [address]MO[address] [place], [place] [address] (Wo rk) 07/25/2022 Office Visit Pulmonology Tong Norman MD [facility] Pulmonary Medici [place], [place] [address] (Wo rk) documented as of this encounter Visit Diagnoses Diagnosis Memory loss Mild neurocognitive disorder documented in this encounter Care Teams Coke Drawer Hand Relationship Specialty Start Date End Date Sarah Young APRN PCP - General Family Medicine 06/27/17 05/15/18 [address] [place] [address] documented as of this encounter
--- OUTSIDE RECORDS SUMMARY | 2022-05-31 15:09 | XMS_ITS | Encounter Summary ---
:1965 Author Organization [facility] [place] [address] Care Team Providers Name Role Phone Janet Davey APRN Primary Care Provider Encounter Details Date Type Department Care Team Description 10/20/2019 Hospital Encounter Mammography/DXA at Janet Davey, En counter for [facility] LOFT PATTERNMAKER screening mammogram [place] [address] [address] DAVSI for [facility] [address], [address] MD [id number] Social History Tobacco Use Types Packs/Day Years [...] (0.1 %) Aerosol, each nostril twice a [place] day SUMAtriptan (IMITREX) as needed for 1 [...] 05/01/2016 05/01/2021 20 mcg/24 hr (5 years) [id number] IUD cetirizine (ZYRTEC) 10 Take 10 mg by mouth 0 02/12/2022 mg tablet daily. tacrolimus (PROTOPIC) 1 Appl(s) Top Twice 0 08/2402/12/2022 0.1 % ointment daily KETOCONAZOLE (NIZORAL Apply topically. 0 08/24/2002/12/2022 TOP) documented as of this encounter Plan of Treatment Upcoming Encounters Date Type Specialty Care Team Description 07/13/2022 Appointment Radiology Maile Hinojosa MD [facility] ENDOCRINOLOGY [place], [place] [address] (Wo rk) 07/13/2022 Office Visit Endocrinology Maile Hinojosa MD ONE [facility] ER ENDOCRINOLOGY [place], [place] [address] (Wo rk) 07/25/2022 Office Visit Pulmonology Tong Norman MD [facility] Pulmonary Medici ne [place], [place] [address] (Wo rk) documented as of [...] letter has been sent to this pa tient by the [facility]. BIRADS CATEGORY 1: NEGATIVE Janet Davey APRN IMG MAMMO ORDERABLES documented in this encounter Visit Diagnoses Diagnosis Encounter for screening mammogram for br east cancer documented in this encounter Care Teams Turning Machine Operator Relationship Specialty Start Date End Date Janet Davey, LOFT PATTERNMAKER PCP - General Family Medicine 06/23/18 07/12/20 [address] [place] [address] documented as of this encounter
--- OUTSIDE RECORDS SUMMARY | 2022-05-31 15:10 | XMS_ITS | Encounter Summary ---
:1965 Author Organization [facility] [place] [address] Care Team Providers Name Role Phone Suzie Mcintyre APRN Primary Care Provider Encounter Details Date Type Department Care Team Description 03/13/2017 Hospital Encounter XRay at [facility] Nephrolithiasis [address] [place] [address] [place] [address] Social History Tobacco Use Types Packs/Day [...] directed NASONEX 50 mcg/actuation 0 05/18/2016 06/11/2018 [place], Non-Aerosol levonorgestrel (MIRENA) 1 each by Intrauterine route once. Lot tu01 8ac 0 05/01/2016 05/01/2021 20 mcg/24 hr (5 years) [id number] IUD omeprazole (PRILOSEC) 20 PRN 0 03/22/2016 [...] MD [facility] ER ENDOCRINOLOGY [place], [place] [address] (Wo rk) 07/13/2022 Office Visit Endocrinology Maile Hinojosa MD [facility] ER [address] [place], [place] [address] (Wo rk) 07/25/2022 Office Visit Pulmonology Tong Norman MD [facility] er Pulmonary Medici [place], [place] [address] (Wo rk) documented as of [...] kidney documented in this encounter Care Teams Coding Validator Relationship Specialty Start Date End Date Kearney, Suzie G, COMMODITY SUPERVISOR PCP - General Family Medicine 02/28/17 06/26/17 documented as of this encounter
--- OUTSIDE RECORDS SUMMARY | 2022-05-31 15:10 | XMS_ITS | Encounter Summary ---
:1965 Author Organization [place] [address] Care Team Providers Name Role Phone Monica Garcia MD Primary Care Provider Reason for Visit Reason Comments Contraception Encounter Details Date Type Department Care Team Description 05/01/2016 Office Visit Obstetrics and Ida Ron, Encounter for IUD insertion; Gynecology at [facility] [place] [place] PAINTER AIRCRAFT Unsatisfactory cervical Papanicolaou sme ar; [facility] Vulvar pa in [facility] C[address] [place], [place] OBSTETRICS & [address] GYNECOLOGY [phone] [place], [place] [address] Social History Tobacco Use Types [...] FOR VISIT: IUD Placement, Pap, vulvar dryness Trials Manager: pt reports starting after her period [...] Hinojosa MD [facility] ER DR MARMOLE[address] [place], [place] [address] (Wo rk) 07/13/2022 Office Visit Endocrinology Maile Hinojosa MD [facility] ER DR [address] [place], [place] [address] (Wo rk) 07/25/2022 Office Visit Pulmonology Tong Norman MD [facility] Pulmonary Medici ne [place], [place] [address] (Wo rk) documented as of this encounter Procedures Procedure Name Priority Date/Time Associated Comments Diagnosis HPV Routine 05/01/2016 5:32 PM Results f or this EDT procedure are i n the results section. BEVERAGE MANAGER CYTOLOGY Routine 05/01/2016 5:32 PM Results f or this INTERPRETATION EDT procedure are in the results section. BEVERAGE MANAGER CYTOLOGY FINAL Routine 05/01/2016 5:32 PM Res ults for this REPORT EDT procedure are i n the results section. CYTOPATHOLOGY Routine 05/01/2016 5:32 PM Encounter for IUD Res ults for this GYNECOLOGICAL EDT insertion procedure are in the results section. documented in this encounter Results BEVERAGE MANAGER Cytology Interpretation (05/01/2016 5:32 PM EDT) [facility] Method Time Signature Trials Manager Cytology NILM [facility] LABORATORY Comment: Trials Manager Cytology Final Report Acces kendall: [id number] Endocervical Component Present [facility] LABORATORY Specimen Anatomical Collection Method Collection Time Receive d Time (Source) Location / / Volume Laterality AP Specimen 05/01/2016 5:32 PM 6 8:09 EDT AM EDT Ida Ron APRN PATHOLOGY/CYTOLOGY ORDERABLE S Performing Organization Address City/State/[place] [address] Trials Manager Cytology Final Report (05/01/2016 5:32 PM EDT) Component Value Ref Test Analysis Performed At [facility] Range Method Time Signature Trials Manager Cytology [id number] ? Location: [facility] Final Report ASHUTOSH The signing pathologist has (i) examined the relevant preparation(s) for the [facility] specimen(s) and (ii) rendered or confirmed the diagnosis(es) . HOSPITAL LABORATORY . ? Trials Manager Final DIAGNOSIS Normal Negative for Intraepithelial Lesion or Malignancy (NILM). For consensus guidelines for the management of c ervical cancer screening test results, please see: ?? http://www.asccp.org/guidelines . Electronically signed by: ??AVI Henson(ASCP), Suzie Ruiz Verified: ??05/04/2016 ?Political Cartoonist Screened: ??05/04/2016 ?SLA HPV RESULTS HPV16 (Result) [...] Gen omics and Advanced Technology (CGAT) at [facility] [place] [place]. ? - David Avilez, PhD, [facility], Director-[facility] STATEMENT OF ADEQUACY Specimen submitted is satisfactory. Endocervical component p resent. CLINICAL INFORMATION HPV Option: ?Concurrent HPV and Pap Preparation: ? Liquid based Pap Specimen Source: ? Cervical/Endocervical LMP: ? 8/19/16 Hormones?: ? Yes Hysterectomy?: ? No ?: ? No ?: ? No I.U.D.?: ? No Pelvic Radiation: ?No Prior BEVERAGE MANAGER Therapy?: ?Cautery Hist Abnl Pap/Biopsy?: ?? Yes, [...] evalu ated with the assistance of the [employer] Pap Test Imaging System. Note: The Pap test is a screening test for cervical cancer with an inherent false-negative rate dependent upon several variables. ??For further information please contact the [facility] [place] [place] Laboratory. Reference: ??Abendrotsharita CS. ? ?Packager Hand of Pap Smear Results. ??In: ??Sukumar BS, Roni HH, ed. ??The Pap Smear. ??[place]: ??Jonah, 15 10: ??71-77. Specimen (Source) Anatomical Collection Method Collection Time Re ceived Time Location / / Volume Laterality 05/01/2016 5:32 PM EDT Ida Ron APRN PATHOLOGY/CYTOLOGY ORDERABLE S Performing Organization Address City/State/[place] [address] HPV (05/01/2016 5:32 PM EDT) [facility] Method Time Signature HPV 16 NEGATIVE NEGATIVE [facility] LABORATORY HPV 18 NEGATIVE NEGATIVE [facility] LABORATORY HPV Other HR NEGATIVE NEGATIVE [facility] LABORATORY HPV See Comment ALBERT Interpretation [facility] LABORATORY Comment: NEGATIVE for high-risk HPV *. [...] APRN PATHOLOGY/CYTOLOGY ORDERABLE S Performing Organization Address City/[facility]/[place] [address] Cytopathology Gynecological (05/01/2016 5:32 PM EDT) Specimen Anatomical Collection Method Collection Time Receive d Time (Source) Location / / Volume Laterality AP Specimen 05/01/2016 5:32 PM 6 5:37 EDT PM EDT Narrative [facility] LABORAT ORY - 05/01/2016 5:37 PM EDT Specimen requisition ordered. ??Separate Pathology report to follow Resulting Agency Comment Spec In Lab Taryn Banks MD PATHOLOGY/CYTOLOGY ORDERABLE S Performing Organization Address City/State/[place] [address] documented in this encounter [...] Routine documented in this encounter Care Teams Building Appraiser Relationship Specialty Start Date End Date Monica Garcia MD PCP - General 01/06/13 02/27/17 [address] [place] [address] documented as of this encounter
--- OUTSIDE RECORDS SUMMARY | 2022-05-31 15:10 | XMS_ITS | Encounter Summary ---
:1965 Author Organization [facility] [place] [address] Care Team Providers Name Role Phone Suzie Mcintyre APRN Primary Care Provider Encounter Details Date Type Department Care Team Description 02/19/[address] [facility] [facility] Luis Michael Jr., MD [facility] [place] [address] UROLOGY DEPT. [phone] [place], [place] [address] (Wo rk) Social History [...] Radiology Maile Hinojosa MD [facility] ER DR JALEEL [place] [address] (Wo rk) 07/13/2022 Office Visit Endocrinology Maile Hinojosa MD [facility] DR [place], [place] [address] (Wo rk) 07/25/2022 Office Visit Pulmonology Tong Norman MD [facility] er Pulmonary Medici [place], [place] [address] (Wo rk) documented as of this encounter Visit Diagnoses Not on filedocumented in this encounter Care Teams Speech Coach Relationship Specialty Start Date End Date Suzie Mcintyre APRN PCP - General Family Medicine 02/28/17 06/26/17 documented as of this encounter
--- OUTSIDE RECORDS SUMMARY | 2022-05-31 15:10 | XMS_ITS | Encounter Summary ---
:1965 Author Organization [facility] [place] [address] Care Team Providers Name Role Phone Monica Garcia MD Primary Care Provider Reason for Visit Reason Comments Osteoporosis Encounter Details Date Type Department Care Team Description 04/07/2015 Office Visit Endocrinology at [facility], [place] Osteoporosis [facility] Cuate Vidales MD [facility] [place] [place] [address] [place] [address] Social History Tobacco Use Types Packs/Day [...] 46 y.o. year old female evaluated by STATION SUPERVISOR and found to have osteoporosis on Dexa [...] MD [facility] [address]MO[address] [place], [place] [address] (Wo rk) 07/13/2022 Office Visit Endocrinology Maile Hinojosa MD [facility] [address] [place], [place] [address] (Wo rk) 07/25/2022 Office Visit Pulmonology Tong Norman MD [facility] Pulmonary Medici [place], [place] [address] (Wo rk) documented as of this encounter Visit Diagnoses Diagnosis Osteoporosis Osteoporosis, unspecified documented in this encounter Care Teams Spinning Frame Cleaner Relationship Specialty Start Date End Date Monica Garcia MD PCP - General 01/06/13 02/27/17 [address] [place] [address] documented as of this encounter
--- OUTSIDE RECORDS SUMMARY | 2022-05-31 15:10 | XMS_ITS | Encounter Summary ---
:1965 Author Organization [facility] [place] [address] Care Team Providers Name Role Phone Suzie Mcintyre APRN Primary Care Provider Encounter Details Date Type Department Care Team Description 03/18/2017 Telephone [place] [facility] [place] Michael Jr., MD [facility] [place] [address] UROLOGY DEPT. [phone] [place], [place] [address] (Wo rk) Social History Tobacco [...] negative cysto, I also suggested she undergo PHARMACIST CRITICAL CARE evaluation to assess for possible PHARMACIST CRITICAL CARE source for bloodyspotting. She will proceed in [...] Radiology Maile Hinojosa MD [facility] ENDOCRINOLOGY [place], [place] [address] (Wo rk) 07/13/2022 Office Visit Endocrinology Maile Hinojosa MD [facility] ENDOCRINOLOGY [place], [place] [address] (Wo rk) 07/25/2022 Office Visit Pulmonology Tong Norman MD [facility] Pulmonary Medici [place], [place] [address] (Wo rk) documented as of this encounter Visit Diagnoses Not on filedocumented in this encounter Care Teams Poultry Helper Relationship Specialty Start Date End Date Suzie Mcintyre APRN PCP - General Family Medicine 02/28/17 06/26/17 documented as of this encounter
--- OUTSIDE RECORDS SUMMARY | 2022-05-31 15:10 | XMS_ITS | Encounter Summary ---
:1965 Author Organization [facility] [place] [address] Care Team Providers Name Role Phone Janet Davey APRN Primary Care Provider Reason for Visit Reason Comments Medication Refill Encounter Details Date Type Department Care Team Description 08/06/2015 [facility] Victor Manuel cifuentes OBSTETRICS & [place] [address] [place] [address] [phone] (Wo rk) Social History Tobacco Use Types [...] Description 07/13/2022 Appointment Radiology Maile Hinojosa MD [facility] [address] [place], [place] [address] (Wo rk) 07/13/2022 Office Visit Endocrinology Maile Hinojosa MD [facility] [address] [place], [place] [address] (Wo rk) 07/25/2022 Office Visit Pulmonology Tong Norman MD [facility] Pulmonary Medici [place], [place] [address] (Wo rk) documented as of this encounter Visit Diagnoses Not on filedocumented in this encounter Care Teams Power Distributor Relationship Specialty Start Date End Date Janet Davey APRN PCP - General Family Medicine 07/13/20 [address] [place] [address] documented as of this encounter
--- OUTSIDE RECORDS SUMMARY | 2022-05-31 15:10 | XMS_ITS | Encounter Summary ---
:1965 Author Organization [facility] [address] Care Team Providers Name Role Phone Monica Garcia MD Primary Care Provider Encounter Details Date Type Department Care Team Description 12/30/2015 Telephone Urology at [facility] [place] Luis Michael Jr., MD [facility] [place] [address] UROLOGY DEPT. [phone] [place], [place] [address] (Wo rk) Social History Tobacco [...] MD [facility] ER ENDOCRINOLOGY [place], [place] [address] (Wo rk) 07/13/2022 Office Visit Endocrinology Maile Hinojosa MD [facility] ER DR MARMOLEJO [place], [place] [address] (Wo rk) 07/25/2022 Office Visit Pulmonology Tong Norman MD [facility] Pulmonary Medici [place], [place] [address] (Wo rk) documented as of this encounter Visit Diagnoses Not on filedocumented in this encounter Care Teams Resolution Expert Relationship Specialty Start Date End Date Monica Garcia MD PCP - General 01/06/13 02/27/17 [address] [place] [address] documented as of this encounter
--- OUTSIDE RECORDS SUMMARY | 2022-05-31 15:10 | XMS_ITS | Encounter Summary ---
:1965 Author Organization [facility] [place] [address] Care Team Providers Name Role Phone Monica Garcia MD Primary Care Provider Reason for Visit Reason Onset Date Comments Medication Refill 07/06/2015 Encounter Details Date Type Department Care Team Description 07/06/2015 Refill Obstetrics and Gynecology at [facility] Ida juan APRN [facility] Victor Manuel cifuentes OBSTETRICS & [place] [address] [place] [address] [phone] (Wo rk) Social History Tobacco Use Types [...] Hinojosa MD [facility] ER DR JALEEL [place] [address] (Wo rk) 07/13/2022 Office Visit Endocrinology Maile Hinojosa MD [facility] ER ENDOCRINOLOGY [place], [place] [address] (Wo rk) 07/25/2022 Office Visit Pulmonology Tong Norman MD [facility] er Pulmonary Medici [place], [place] [address] (Wo rk) documented as of this encounter Visit Diagnoses Not on filedocumented in this encounter Care Teams Roll Skinner Relationship Specialty Start Date End Date Monica Garcia MD PCP - General 01/06/13 02/27/17 [address] [place] [address] documented as of this encounter
--- OUTSIDE RECORDS SUMMARY | 2022-05-31 15:10 | XMS_ITS | Encounter Summary ---
:1965 Author Organization [facility] [place] [address] Care Team Providers Name Role Phone Monica Garcia MD Primary Care Provider Reason for Visit Reason Comments Follow-up EMB Encounter Details Date Type Department Care Team Description 08/29/2015 Office Visit Obstetrics and Ida Ron, Abnormal uterine [place]necology [place] [facility] [place] IT SUPPORT MANAGER bleeding (AUB) [facility] [address] [place], [place] OBSTETRICS & [address] GYNECOLOGY [phone] [place], [place] [address] Social History Tobacco Use Types [...] documented in this encounter Progress Notes AsafIda yun APRN - 08/29/2015 7:46 AM EST Reason for visit: ALHAJIB HPI: I saw pt 06/28/15. 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 She has agreed to an EMB. [...] Maile Hinojosa MD [facility] [address] [place], [place] [address] (Wo rk) 07/13/2022 Office Visit Endocrinology Maile Hinojosa MD [facility] DR [place], [place] [address] (Wo rk) 07/25/2022 Office Visit Pulmonology Tong Norman MD [facility] er Pulmonary Medici [place] [address] (Wo rk) documented as of this [...] Component Value Ref Test Analysis Performed At [facility] Range Method Time Signature Surgical [id number] ? Location: [address] [place] [address] Pathology [facility] Report The signing pathologist has (i) [...] Performing Organization Address City/[facility]/ZIP Code Phon e Number [address] CERNER MILLENNIUM Specimen to [...] Organization Address City/State/[place] [address] CERNER [employer] documented in this encounter Visit Diagnoses Diagnosis Abnormal uterine bleeding (AUB) documented in this encounter Care Teams Fibre Optics Jointer Relationship Specialty Start Date End Date Monica Garcia MD PCP - General 01/06/13 02/27/[address] [place] [address] documented as of this encounter
--- OUTSIDE RECORDS SUMMARY | 2022-05-31 15:10 | XMS_ITS | Encounter Summary ---
:1965 Author Organization [facility] [place] [address] Care Team Providers Name Role Phone Monica Garcia MD Primary Care Provider Encounter Details Date Type Department Care Team Description 04/10/2016 Office Visit Obstetrics and Ida Ron, Abnormal perimenopausal Gynecology at [facility] HADOOP JAVA DEVELOPER bleeding [facility] [address] [place] & [id number] GYNECOLOGY [phone] [place], [place] [address] Social History Tobacco Use Types [...] 13, then February 23, then March 15. [place] spotting since the . She loves her [...] MD [facility] MEDICAL [facility] [address] JALEEL DEWEY [place] [address] (Rahul ascencio) 07/13/2022 Office Visit Endocrinology Maile Hinojosa MD [facility] [address] JALEEL [place], [place] [address] (Wo rk) 07/25/2022 Office Visit Pulmonology Tong Norman MD [facility] Medical [facility] Pulmonary Medici [place], [place] [address] (Wo rk) documented as of this encounter Visit Diagnoses Diagnosis Abnormal perimenopausal bleeding Premenopausal menorrhagia documented in this encounter Care Teams Outboard Motorboat Operator Relationship Specialty Start Date End Date Monica Garcia MD PCP - General 01/06/13 02/27/17 [address] [place] [address] documented as of this encounter
--- OUTSIDE RECORDS SUMMARY | 2022-05-31 15:10 | XMS_ITS | Encounter Summary ---
:1965 Author Organization [facility] [place] [address] Care Team Providers Name Role Phone Monica Garcia MD Primary Care Provider Encounter Details Date Type Department Care Team Description 07/07/2015 Orders Only Obstetrics and Gynecology Ida Ron APRN at [facility] Victor Manuel cifuentes OBSTETRICS & [place] [address] [place] [address] [phone] (Wo rk) Social History Tobacco Use Types [...] Radiology Maile Hinojosa MD [facility] ENDOCRINOLOGY [place], [place] [address] (Wo rk) 07/13/2022 Office Visit Endocrinology Maile Hinojosa MD [facility] ENDOCRINOLOGY [place], [place] 0[address] (Wo rk) 07/25/2022 Office Visit Pulmonology Tong Norman MD [facility] er Pulmonary Medici [place], [place] [address] (Wo rk) documented as of this encounter Visit Diagnoses Not on filedocumented in this encounter Care Teams Ross Lift Operator Relationship Specialty Start Date End Date Moinca Garcia MD PCP - General 01/06/13 02/27/17 [address] [place] [address] documented as of this encounter
--- OUTSIDE RECORDS SUMMARY | 2022-05-31 15:10 | XMS_ITS | Encounter Summary ---
:1965 Author Organization [facility] [place] [address] Care Team Providers Name Role Phone Suzie Mcintyre APRN Primary Care Provider Reason for Referral Diagnostic Test (Routine) - Closed Specialty Diagnoses / Procedures Referred By Contact Refer red To Contact Radiology Diagnoses Nephrolithiasis Luis Michael Jr., MD [facility] Rad Ct Scan Procedures CT Urogram [facility] [place] [address] [place] [address] Referral ID Status Reason Start Date Expiration Date Visits V isits Requested Authorized [id number] Closed Specialty 03/14/2017 05/12/2017 1 1 Service Requested Reason for Visit Diagnostic Test (Routine) - Closed Specialty Diagnoses / Procedures Referred By Contact Refer red To Contact Radiology Diagnoses Nephrolithiasis Luis Michael Jr., MD [facility] Rad Ct Scan Procedures CT Urogram [facility] [place] [address] [place] [address] Referral ID Status Reason Start Date Expiration Date Visits V isits Requested Authorized [id number] Closed Specialty 03/14/2017 05/12/2017 1 1 Service Requested Encounter Details Date Type Department Care Team Description 03/15/[address] [place] [facility] [place] Michael Nephrolithiasis [facility] [place] [address] UROLOGY DEPT. [phone] [place], [place] [address] Social History Tobacco Use [...] directed NASONEX 50 mcg/actuation 0 05/18/2016 06/11/2018 [place], Non-Aerosol levonorgestrel (MIRENA) 1 each by Intrauterine route once. Lot [id number] 0 05/01/2016 05/01/2021 20 mcg/24 hr (5 years) [id number] IUD omeprazole (PRILOSEC) 20 PRN 0 03/22/2016 [...] contrast out of your body. Thank You, [facility] CT Scan Dept [facility] INTERVENTIONAL RADIOLOGY CT UROGRAM PROCEDURE NAME: JESSICA ALBRIGHT ADDRESS: [address] [place] [address] HOME PHONE: [phone] (home) [phone] (work) MOBILE NUMBER: Telephone Information: REFERRING PROVIDER: [...] 07/27/16 Ida Ron APRN NASONEX 50 mcg/actuation [place], Non-Aerosol 05/18/16 PROVIDER, HISTORICAL SUMAtriptan (IMITREX) 100 mg Tablet as needed for Migraine. 04/13/16 PROVIDER, HISTORICAL levonorgestrel (MIRENA) 20 mcg/24 hr (5 years) IUD 1 each by Intrauterine route once. Lot [id number] 05/01/16 05/01/21 PROVIDER, HISTORICAL omeprazole (PRILOSEC) 20 [...] Radiology Maile Hinojosa MD [facility] DR MARMOLE[place], [place] [address] (Wo rk) 07/13/2022 Office Visit Endocrinology Maile Hinojosa MD [facility] DR MARMOLE[address] [place], [place] [address] (Wo rk) 07/25/2022 Office Visit Pulmonology Tong Norman MD [facility] Pulmonary Medici ne [place], [place] [address] (Wo rk) documented as of this encounter [...] MIP images were reformatted on a separate rkstation and reviewed as part of this [...] Routine documented in this encounter Care Teams Territory Outside Sales Manager Relationship Specialty Start Date End Date Suzie Mcintyre APRN PCP - General Family Medicine 02/28/17 06/26/17 documented as of this encounter
--- OUTSIDE RECORDS SUMMARY | 2022-05-31 15:10 | XMS_ITS | Encounter Summary ---
:1965 Author Organization [facility] [place] [address] Care Team Providers Name Role Phone Suzie Mcintyre APRN Primary Care Provider Reason for Referral Diagnostic Test (Routine) - Closed Specialty Diagnoses / Procedures Referred By Contact Refer red To Contact Radiology Diagnoses Nephrolithiasis Ferdinand Michael Jr., MD [facility] Rad Ct Scan Procedures CT Urogram [facility] [place] [address] [place] [address] Referral ID Status Reason Start Date Expiration Date Visits V isits Requested Authorized [id number] Closed Specialty 03/14/2017 05/12/2017 1 1 Service Requested Reason for Visit Reason Comments Flank Pain Encounter Details Date Type Department Care Team Description 03/13/2017 Office Visit Urology at [facility] Ferdinand Michael Jr., Nephrolithiasis [facility] Victor [place] [address] [facility] [phone] UROLOGY DEPT. [place], [place] [address] (Wo rk) Social History Tobacco [...] Hinojosa MD [facility] [address] MARMOLEJO [place], [place] [address] (Wo rk) 07/13/2022 Office Visit Endocrinology Maile Hinojosa MD [facility] DR MARMOLE[address] [place], [place] [address] (Wo rk) 07/25/2022 Office Visit Pulmonology Tong Norman MD [facility] Pulmonary Medici [place], [place] 0[address] (Wo rk) documented as of [...] Signature Glucose Lvl 93 65 - 199 [facility] mg/dL [facility] Comment: Diabetes: >=200 mg/dL plus symp toms BUN 15 8 - 18 mg/dL [facility] Creatinine 0.82 0.70 - 1.20 mg/dL [facility] Comment: Please note that the pediatric reference intervals supplied above were not validated at [facility]. Results from pediatri c patients should be interpreted in conjunction to the patient's age, height and muscle mass. Sodium 137 135 - 145 mmol/L [facility] Potassium 4.1 3.5 - 5.0 mmol/L [facility] Comment: Please note: ??Patients with WBC >100,00 0 may have falsely elevated Potassium levels. ??For accurate Potassium quantif ication in these patients send serum separator tube (gold top) for subsequent determinations. ??Contact the Clinical Chemistry Laboratory if there are any qu estions. Chloride 101 98 - 107 mmol/L [facility] CO2 24 22 - 31 mmol/L [facility] Anion Gap 12 5 - 15 mmol/L [facility] Calcium 9.3 8.5 - 10.5 mg/dL [facility] Estimated GFR >60 >=60 ALBERT Curry [facility] Comment: This estimated GFR (eGFR) [...] the following links into your internet browser. [email or web address] Specimen Anatomical Collection Method Collection Time Receive d Time (Source) Location / / Volume Laterality Blood specimen 03/15/2017 2:36 PM 017 2:47 (specimen) EDT PM EDT Resulting Agency Comment Spec In Lab Ferdinand Michael Jr., MD CHEMISTRY ORDERABLES Performing Organization Address City/[facility]/[place] [address] (ABNORMAL) Urine culture Clean Catch Urine (03/13/2017 5:50 PM EDT) [facility] Genesant Method Time Signature Urine Culture 1,000-9,000 ALBERT cfu/ml [facility] probable LABORATORY contaminant (A) Specimen (Source) Anatomical Collection Method Collection Time Re ceived Time Location / / Volume Laterality Urine specimen 03/13/2017 5:50 03/13/2017 5:50 obtained by clean PM EDT PM EDT catch procedure (specimen) Resulting Agency Comment Spec In Lab Ferdinand Michael Jr., MD MICROBIOLOGY - GENERAL ORDER MERLE Performing Organization Address City/[facility] [place] [address] (ABNORMAL) Urinalysis with reflex Culture (03/13/2017 4:52 PM EDT) [facility] Genesant Method Time Signature Glucose UA Negative Negative ALBERT DAUGHERTYASHUTOSH mg/dL [facility] Protein UA Negative Negative ALBERT ASHUTOSH mg/dL [facility] Bilirubin UA Negative Negative [facility] mg/dL [facility] Comment: Clinical correlation required for positi ve Urine Bilirubin results as false positive may occur with some drugs and d rug related products. If a false positive is suspected a serum total bili lloyd should be considered if clinically indicated. Urobilinogen UA Normal Normal mg/dL [facility] pH UA 6.0 5.0 - 8.0 [facility] Blood UA Small (A) Negative mg/dL [facility] Ketones UA Negative Negative mg/dL [facility] Nitrite UA Negative Negative [facility] Leukocytes UA Negative Negative [facility] LABORATORY Appearance UA Hazy (A) Clear [facility] Spec [place] UA 1.014 1.002 - 1.030 [facility] Color UA Yellow Yellow [facility] RBC UA <1 0 - 4 /HPF [facility] WBC UA 2 0 - 5 /HPF [facility] Bacteria UA Rare (A) None /HPF [facility] Squam Epith UA 1 <=4 /HPF [facility] Hyaline Cast UA 1 0 - 2 /LPF [facility] Culture Reflexed No [facility] Specimen (Source) Anatomical Collection Method Collection Time Re ceived Time Location / / Volume Laterality Urine specimen 03/13/2017 4:52 03/13/2017 5:34 obtained by clean PM EDT PM EDT catch procedure (specimen) Resulting Agency Comment Spec In Lab Ferdinand Michael Jr., MD URINE ORDERABLES Performing Organization Address City/State/[place]IP [place] [address] documented in this encounter Visit Diagnoses Diagnosis Nephrolithiasis Calculus of kidney Nephrolithiasis Calculus of kidney documented in this encounter Care Teams Accounts Receivable Administrator Relationship Specialty Start Date End Date Suzie Mcintyre APRN PCP - General Family Medicine 02/28/17 06/26/17 (work) documented as of this encounter
--- OUTSIDE RECORDS SUMMARY | 2022-05-31 15:10 | XMS_ITS | Encounter Summary ---
:1965 Author Organization [facility] [place] [address] Care Team Providers Name Role Phone Monica Garcia MD Primary Care Provider Encounter Details Date Type Department Care Team Description 08/22/2015 Telephone Obstetrics and Gynecology at [facility] Ida juan APRN [facility] Victor Manuel cifuentes OBSTETRICS & [place] [address] [place] [address] [phone] (Wo rk) Social History Tobacco Use Types [...] Maile Hinojosa MD [facility] ENDOCRINOLOGY [place], [place] [address] (Wo rk) 07/13/2022 Office Visit Endocrinology Maile Hinojosa MD [facility] [address] MARMOLEJO [place], [place] [address] (Wo rk) 07/25/2022 Office Visit Pulmonology Tong Norman MD [facility] Pulmonary Medici [place], [place] [address] (Wo rk) documented as of this encounter Visit Diagnoses Not on filedocumented in this encounter Care Teams Deicer Element Winder Machine Relationship Specialty Start Date End Date Monica Garcia MD PCP - General 01/06/13 02/27/17 [address] [place] [address] documented as of this encounter
--- OUTSIDE RECORDS SUMMARY | 2022-05-31 15:10 | XMS_ITS | Encounter Summary ---
:1965 Author Organization [facility] [place] [address] Care Team Providers Name Role Phone Monica Garcia MD Primary Care Provider Reason for Visit Reason Onset Date Comments Questions 12/07/2014 Encounter Details Date Type Department Care Team Description 12/07/2014 Telephone Obstetrics and Gynecology at Connie [facility], Marcial [facility] [place] [address] Social History Tobacco Use Types Packs/Day [...] Radiology Maile Hinojosa MD [facility] ENDOCRINOLOGY [place], [place] 0[address] (Wo rk) 07/13/2022 Office Visit Endocrinology Maile Hinojosa MD [facility] DR MARMOLEJO [place], [place] [address] (Wo rk) 07/25/2022 Office Visit Pulmonology Tong Norman MD [facility] Pulmonary Medici [place], [place] [address] (Wo rk) documented as of this encounter Visit Diagnoses Not on filedocumented in this encounter Care Teams It Technical Architect Relationship Specialty Start Date End Date Monica Garcia MD PCP - General 01/06/13 02/27/17 [address] [place] [address] documented as of this encounter
--- OUTSIDE RECORDS SUMMARY | 2022-05-31 15:10 | XMS_ITS | Encounter Summary ---
:1965 Author Organization [facility] [place] [address] Care Team Providers Name Role Phone Suzie Mcintyre APRN Primary Care Provider Encounter Details Date Type Department Care Team Description 03/13/2017 Hospital Encounter [facility]trasound [place] [facility] Ferdinand Pennington Nephrolithiasis [facility] [place] [address] UROLOGY DEPT. [phone] [place], [place] [address] Social History Tobacco Use Types [...] directed NASONEX 50 mcg/actuation 0 05/18/2016 06/11/2018 [place], Non-Aerosol levonorgestrel (MIRENA) 1 each by Intrauterine route once. Lot tu01 8ac 0 05/01/2016 05/01/2021 20 mcg/24 hr (5 years) [id number] IUD omeprazole (PRILOSEC) 20 PRN 0 03/22/2016 [...] Hinojosa MD [facility] ENDOCRINOLOGY [place], [place] [address] (Wo rk) 07/13/2022 Office Visit Endocrinology Maile Hinojosa MD [facility] END[facility] [place], [place] [address] (Wo rk) 07/25/2022 Office Visit Pulmonology Tong Norman MD [facility] er Pulmonary [place] [id number] (Wo rk) documented as of this encounter [...] 05:40 pm) PATIENT INFO: ID #: ? [id number] ?: [birth year] (51 yrs) Name: ? JESSICA Charles GTZ ?Visit Date: 03/13/2017 02:56 pm PERFORMED BY: Performed By: ? Keya Hedrick RDMS Attending: ?Luna GILL, Genie Dumont Resident: ? Chula GILL, Kip Rojas Referred By: ?FERDINAND Antoinette GORGE Location: ? [facility] SERVICE(S) PROVIDED: ??URETRO - Retroperitoneal Complete - [id number] ? [id number] INDICATIONS: ??pt with history of stones, eval [...] 05:40 pm ) PATIENT INFO: ID #: [id number] : [birth year] (51 y rs) Name: JESSICA GTZ Visit Date: 03/13 02:56 pm PERFORMED BY: Performed By: Chetna Hedrick RDMS Attending: Genie Carrasco MD Resident: Kip Quiros MD Referred By: FERDINAND PENNINGTON JR Location: [facility] SERVICE(S) PROVIDED: URETRO - Retroperitoneal Complete - [id number] INDICATIONS: pt with history of stones, eval [...] Signed Final Report 03/13 05:40 pm Ferdinand Pennington Jr., MD IMG US GEN ORDERABLES documented in this encounter Visit Diagnoses Diagnosis Nephrolithiasis Calculus of kidney documented in this encounter Care Teams Billet Examiner Relationship Specialty Start Date End Date Suzie Mcintyre APRN PCP - General Family Medicine 02/28/17 06/26/17 documented as of this encounter
--- OUTSIDE RECORDS SUMMARY | 2022-05-31 15:10 | XMS_ITS | Encounter Summary ---
:1965 Author Organization [facility] [place] [address] Care Team Providers Name Role Phone Monica Garcia MD Primary Care Provider Reason for Visit Reason Comments Cognitive Problems neuropsych eval Psychiatric (Routine) - Specialty Diagnoses / Procedures Referred By Contact Refer red To Contact Psychiatry Diagnoses concerns with recent memory loss Monica Garcia MD [facility] Psych Neuro 5d Procedures PRO NEUROPSYCHOLOGICAL TESTING,PER HOUR BY BODY PRESSER BLOOD SPLATTER ANALYST Testing [address] [place] [address] [place] [address] Phone: Referral ID Status Reason Start Date Expiration Date Visits V isits Requested Authorized [id number] 04/16/2016 04/16/2017 1 1 Encounter Details Date Type Department Care Team Description 09/12/2016 Office Visit Psychiatry and Salvador Palmer Mild neuro cognitive [facility] PSYCHIATRY DEPT. 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 REASON FOR REFERRAL AND BACKGROUND: This is Stacy Albright???s first [facility] neuropsychological evaluation. She was referred in the [...] Anxiety Inventory (VLADIMIR); Avila Depression Inventory-II (BDI-II); [place] Naming Test (BNT); Brief Visuospatial Memory Test- Revised (BVMT-R); [place] Verbal Learning Test, Second Edition(CVLT-II); Comprehension of Complex Ideational Material (from BDAE; [place] Diagnostic Aphasia Examination); Trudy Antony Executive Functioning System (DKEFS, select subtests); Grooved Pegboard Test; Paced Auditory Serial Addition Test (PASAT, Lorenz version); Lateral Dominance Examination; Florentin Complex Figure Test; [place] Making Test; Nima Adult Intelligence Scale - 4th edition (WAIS-IV);Nima Memory Scale, Fourth Edition (WMS-IV, selected subtests); [place] Card Sorting Test (WCST). Total Time Spent in Testing, Interpretation, and Report Writin hours 20 minutes TEST RESULTS: Note: Tests were administered by a press tender incendiary grenade. Descriptors are based on appropriate normative data [...] 51/60 Average 2 sec. pacing 39/60 Average [place] Making Test: Raw Score (T Score) Part [...] Palmer, Ph.D. Post-Doctoral Fellow Clinical Neuropsychologist Neuropsychology Label PinkerLiner Inserterbanking center manager A postdoctoral fellow in neuropsychology was involved in test administration, interpretation, and report development. The interpretation and integration of pertinent clinical information found in this report was directed and verified by the supervising neuropsychologist/licensed clinical psychologist. documented in this encounter Plan of Treatment Upcoming Encounters Date Type Specialty Care Team Description 07/13/2022 Appointment Radiology Maile Hinojosa MD [facility] MEDICAL CENT [address] JALEEL [place], [place] [address] (Rahul ascencio) 07/13/2022 Office Visit Endocrinology Maile Hinojosa MD [facility] MEDICAL [facility] DR JALEEL DEWEY [place] [address] (Wo rk) 07/25/2022 Office Visit Pulmonology Tong Norman MD [facility] Pulmonary Medici [place], [place] [address] (Wo rk) documented as of this encounter Visit Diagnoses Diagnosis Mild neurocognitive disorder documented in this encounter Care Teams Platemaker Relationship Specialty Start Date End Date Monica Garcia MD PCP - General 01/06/13 02/27/17 [address] [place] [address] documented as of this encounter
--- OUTSIDE RECORDS SUMMARY | 2022-05-31 15:10 | XMS_ITS | Encounter Summary ---
:1965 Author Organization [facility] [place] [address] Care Team Providers Name Role Phone Monica Garcia MD Primary Care Provider Encounter Details Date Type Department Care Team Description 12/29/2014 Orders Only Endocrinology at [facility] Cuate Pearl MD [facility] [place] [address] ENDOCRINOLOGY [phone] [place], [place] [address] (Wo rk) Social History Tobacco [...] Radiology Maile Hinojosa MD [facility] ER DR [place]EL [place], [place] [address] (Wo rk) 07/13/2022 Office Visit Endocrinology Maile Hinojosa MD [facility] DR JALEEL [place], [place] [address] (Wo rk) 07/25/2022 Office Visit Pulmonology Tong Norman MD [facility] Medical [facility] Pulmonary Medici [place], [place] [address] (Wo rk) documented as of this encounter Visit Diagnoses Diagnosis Osteoporosis Osteoporosis, unspecified documented in this encounter Care Teams Nuclear Technologist Relationship Specialty Start Date End Date Monica Garcia MD PCP - General 01/06/13 02/27/17 [address] [place] [address] documented as of this encounter
--- OUTSIDE RECORDS SUMMARY | 2022-05-31 15:10 | XMS_ITS | Encounter Summary ---
:1965 Author Organization [facility] [place] [address] Care Team Providers Name Role Phone Monica Garcia MD Primary Care Provider Reason for Visit Reason Onset Date Comments Results 10/11/2016 Encounter Details Date Type Department Care Team Description 10/11/2016 Telephone Psychiatry and Behavioral Salvador Palmer, PhD Results Health at [facility] [place] [address] [place] [address] [phone] (Wo rk) Social History Tobacco Use Types [...] NEUROPSYCHOLOGICAL EVALUATION Patient Name: Stacy Albright MR#: [id number] Date of Evaluation: 09/12/2016 Age: 51 years Date of : Date of Feedback: 1965 10/11/2016 Referred By: Monica Garcia M.D. Mrs. Albright participated in a 30 minute telephone feedback session to discuss the results of her [facility] neuropsychological evaluation. Briefly, the pattern of performance [...] The report is available in full on [facility]. Thank you for referring Mrs. Albright for evaluation. Please contact us at [phone] if we can be of further assistance. Christine Raza Psy.D. Salvador Palmer, Ph.D. Post-Doctoral Fellow Clinical Neuropsychologist Neuropsychology [employer] Assistant ManagerBead Wire Taperpolicy cancellation clerk This note was prepared by Christine Raza Psy.D., Postdoctoral Fellow in Neuropsychology, under the supervision of Salvador Palmer Ph.D. documented in this encounter Plan of Treatment Upcoming Encounters Date Type Specialty Care Team Description 07/13/2022 Appointment Radiology Maile Hinojosa MD [facility] MEDICAL [facility] [address], [place] [address] (Rahul ascencio) 07/13/2022 Office Visit Endocrinology Maile Hinojosa MD [facility] [address] [place] [address] (Wo rk) 07/25/2022 Office Visit Pulmonology Tong Norman MD [facility] Medical [facility] Pulmonary Medici [place], [place] [address] (Wo rk) documented as of this encounter Visit Diagnoses Not on filedocumented in this encounter Care Teams Lock Stitch Channeler Relationship Specialty Start Date End Date Monica Garcia MD PCP - General 01/06/13 02/27/17 [address] [place] [address] documented as of this encounter
--- OUTSIDE RECORDS SUMMARY | 2022-05-31 15:10 | XMS_ITS | Encounter Summary ---
:1965 Author Organization [facility] [address] Care Team Providers Name Role Phone Monica Garcia MD Primary Care Provider Encounter Details Date Type Department Care Team Description 02/21/2017 Telephone Urology Elliot Tate MD [facility] [place] [address] UROLOGY DEPT [phone] [place], [place] [address] (Wo rk) Social History Tobacco Use Types Packs/Day Years Used Date Never Smoker Smokeless Tobacco: Never Used Alcohol Use Standard Drinks/Week Comments No 0 (1 standard drink = 0.6 oz pure alcoho l) Sex Assigned at Date Recorded Female 01/29/2022 12:45 PM EDT documented as of this encounter Miscellaneous Notes Telephone Encounter - Elliot Alberto MD - 02/21/2017 11:37 AM EDT Jessica Gtz called. She is known to us for her history of stones. She is starting to have increasing flank pain (like 3-4/10) and would like to assess her current stone burden. She has an appt withus in March. She is not having fevers/chills/hematuria. I ordered a KUB and U/S and will get her into clinic sooner than March. She knows to go to an ED for severe pain, fevers, etc. documented in this encounter Plan of Treatment Upcoming Encounters Date Type Specialty Care Team Description 07/13/2022 Appointment Radiology Maile Hinojosa MD [facility] ENDOCRINOLOGY [place], [place] [address] (Wo rk) 07/13/2022 Office Visit Endocrinology Maile Hinojosa MD [facility] ENDOCRINOLOGY [place], [place] [address] (Wo rk) 07/25/2022 Office Visit Pulmonology Tong Norman MD [facility] Pulmonary Medici [place], [place] [address] (Wo rk) documented as of this encounter Results XR Abdomen 1 view [...] No radiopaque urinary tract calculus alexandre ntified. Ferdinand Michael Jr., MD IMG DX ORDERABLES US Retroperitoneal Complete (03/13/2017 2:55 PM EDT) [...] 05:40 pm) PATIENT INFO: ID #: ? [id number] ?: ??[birth year] (51 yrs) Name: ? JESSICA GTZ ?Visit Date: 03/13/2017 02:56 pm PERFORMED BY: Performed By: ? Keya Hedrick RDMS Attending: ?Luna GILL, Genie Dumont Resident: ? Chula GILL, Kip Rojas Referred By: ?FERDINAND Antoinette GORGE Location: ? [place] SERVICE(S) PROVIDED: ??URETRO - Retroperitoneal Complete - I [id number] ? [id number] INDICATIONS: ??pt with history of stones, eval [...] 05:40 pm ) PATIENT INFO: ID #: [id number] : [birth year] (51 y rs) Name: JESSICA GTZ Visit Date: 03/13 02:56 pm PERFORMED BY: Performed By: Chetna Hedrick RDMS Attending: Genie Carrasco MD Resident: Kip Quiros MD Referred By: FERDINAND MICHAEL JR Location: [place] SERVICE(S) PROVIDED: URETRO - Retroperitoneal Complete - IM 3517 [id number] INDICATIONS: pt with history of stones, eval [...] Calculus of kidney Nephrolithiasis Calculus of kidney Nephrolithiasis Calculus of kidney documented in this encounter Care Teams Pharmacy Grad Intern Relationship Specialty Start Date End Date Monica Garcia MD PCP - General 01/06/13 02/27/17 [address] [place] [address] documented as of this encounter
--- OUTSIDE RECORDS SUMMARY | 2022-05-31 15:10 | XMS_ITS | Encounter Summary ---
:1965 Author Organization [facility] [place] [address] Care Team Providers Name Role Phone Monica Garcia MD Primary Care Provider Reason for Visit Reason Comments Follow-up Encounter Details Date Type Department Care Team Description 07/26/2015 Office Visit Urology at [facility] Luis Michael Jr., Nephrolithiasis [facility] [place] [address] [facility] [phone] UROLOGY DEPT. [place], [place] [address] (Wo rk) Social History Tobacco [...] Hinojosa MD [facility] [address] [place]MO[place], [place] [address] (Wo rk) 07/13/2022 Office Visit Endocrinology Maile Hinojosa MD [facility] [address] [place], [place] [address] (Wo rk) 07/25/2022 Office Visit Pulmonology Tong Norman MD [facility] Pulmonary Medici [place], [place] [address] (Wo rk) documented as of this encounter Visit Diagnoses Diagnosis Nephrolithiasis Calculus of kidney documented in this encounter Care Teams Punchboard Filling Machine Operator Relationship Specialty Start Date End Date Monica Garcia MD PCP - General 01/06/13 02/27/17 [address] [place] [address] documented as of this encounter
--- OUTSIDE RECORDS SUMMARY | 2022-05-31 15:10 | XMS_ITS | Encounter Summary ---
:1965 Author Organization [facility] [place] [address] Care Team Providers Name Role Phone Janet Davey APRN Primary Care Provider Reason for Visit Reason Comments Medication Refill Encounter Details Date Type Department Care Team Description 08/21/2015 [facility] Victor Manuel cifuentes OBSTETRICS & [place] [address] [place] [address] [phone] (Wo rk) Social History Tobacco Use Types [...] MD [facility] DR MARMOLEJO [place], [place] [address] (Wo rk) 07/13/2022 Office Visit Endocrinology Maile Hinojosa MD [facility] DR MARMOLE[address] [place], [place] [address] (Wo rk) 07/25/2022 Office Visit Pulmonology Tong Norman MD [facility] Pulmonary Medici [place], [place] [address] (Wo rk) documented as of this encounter Visit Diagnoses Not on filedocumented in this encounter Care Teams Canceling Machine Operator Relationship Specialty Start Date End Date Janet Davey APRN PCP - General Family Medicine 07/13/20 [address] [place] [address] documented as of this encounter
--- OUTSIDE RECORDS SUMMARY | 2022-05-31 15:10 | XMS_ITS | Encounter Summary ---
:1965 Author Organization [facility] [address] Care Team Providers Name Role Phone Monica Garcia MD Primary Care Provider Reason for Referral MRI/CAT Scan (Routine) - Closed Specialty Diagnoses / Procedures Referred By Contact Refer red To Contact Radiology Diagnoses Ultrasound for screening for growth restriction Ferdinand Michael Jr., MD [facility] Rad Ultrasound Procedures US Retroperitoneal Complete [facility] UROLOGY DEPT. [address] [address] Referral ID Status Reason Start Date Expiration Date Visits Requ ested Visits Authorized [id number] Closed 05/15/2016 05/15/2017 1 1 Reason for Visit MRI/CAT Scan (Routine) - Closed Specialty Diagnoses / Procedures Referred By Contact Refer red To Contact Radiology Diagnoses Ultrasound for screening for growth restriction Ferdinand Michael Jr., MD [facility] Rad Ultrasound Procedures US Retroperitoneal Complete [facility] [place] [address] [place] [address] Referral ID Status Reason Start Date Expiration Date Visits Requ ested Visits Authorized [id number] Closed 05/15/2016 05/15/2017 1 1 Encounter Details Date Type Department Care Team Description 07/26/2015 Hospital Encounter Ultrasound at [facility] Ferdinand Michael Ul[facility] for [facility] MD J[address] screening [address] [facility] [place] [address] UROLOGY DEPT. [phone] [place] [address] Social History Tobacco Use Types Packs/Day Years [...] Maile Hinojosa MD [facility] ENDOCRINOLOGY [place], [place] [address] (Wo rk) 07/13/2022 Office Visit Endocrinology Maile Hinojosa MD [facility] ENDOCRINOLOGY [place], [place] [address] (Wo rk) 07/25/2022 Office Visit Pulmonology Tong Norman MD [facility] Pulmonary Medici [place], [place] [address] (Wo rk) documented as of [...] 03:41 pm) Patient Info ID #: ? [id number] ?: ??[birth year] (49 yrs) Name: ? JESSICA ALBRIGHT ?Visit Date: 07/26/2015 03:12 pm Performed By Performed By: ? Ranjit Escobra RDMS Attending: ?Veronica GILL, Butch Moss. Referred By: ?FERDINAND MICHAEL MD Service(s) Provided ??URETRO - Retroperitoneal Complete - I [id number] ? [id number] Indications ??kidney stones Comparison Ultrasound: 02/23/14 ------- [...] 03:41 pm ) Patient Info ID #: [id number] : [birth year] (49 y rs) Name: JESSICA ALBRIGHT Visit Date: 07/26 03:12 pm Performed By Performed By: Maria Teresa Escobar RDMS Attending: Weston Martin MD Referred By: FERDINAND MICHAEL MD Service(s) Provided URETRO - Retroperitoneal Complete - [facility] [address]17 [address] Indications kidney stones Comparison Ultrasound: 02/23/14 ------- [...] ultrasonics documented in this encounter Care Teams Mold Stripper Relationship Specialty Start Date End Date Monica Garcia MD PCP - General 01/06/13 02/27/17 [address] [place] [address] documented as of this encounter
--- OUTSIDE RECORDS SUMMARY | 2022-05-31 15:10 | XMS_ITS | Encounter Summary ---
:1965 Author Organization [facility] Address [address] [place] [address] Care Team Providers Name Role Phone Monica Garcia MD Primary Care Provider Encounter Details Date Type Department Care Team Description 04/07/2015 Hospital Encounter XRay at [address] [place] [address] Social History Tobacco Use Types Packs/Day [...] Description 07/13/2022 Appointment Radiology Maile Hinojosa MD [facility] ENDOCRINOLOGY [place], [place] [address] (Wo rk) 07/13/2022 Office Visit Endocrinology Maile Hinojosa MD [facility] DR MARMOLE[place], [place] [address] (Wo rk) 07/25/2022 Office Visit Pulmonology Tong Norman MD [facility] Pulmonary Medici ne [place], [place] [address] (Wo rk) documented as of [...] measurements a nd plots are available in E-Paracosm under the imaging tab. Paper copies will be sent to providers without E-DH access. If you have received this report without th e data sheet and do not have access to E-Paracosm, please contact Radiology Transcrip tion at [phone] Saturday thru Saturday 8am-4pm. Narrative 04/11/2015 4:44 [...] 02/05 TECHNIQUE: Scans were acquired at the esau mbar spine, and the left hip. FINDINGS: [...] This is available through an interactive web-based Skulpt[employer] ce (http://www.shef.ac.uk/FRAX/) and can be used to [...] measurements a nd plots are available in E-Paracosm under the imaging tab. Paper copies will be sent to providers without E-DH access. If you have received this report without th e data sheet and do not have access to ESignaCert, please contact Radiology Transcrip tion at [phone] Saturday thru Saturday 8am-4pm. Cuate Hall MD IMG DEXA ORDERABLES documented in this encounter Visit Diagnoses Diagnosis Osteoporosis Osteoporosis, unspecified documented in this encounter Care Teams Laminator Relationship Specialty Start Date End Date Monica Garcia MD PCP - General 01/06/13 02/27/17 [address] [place] [address] documented as of this encounter
--- OUTSIDE RECORDS SUMMARY | 2022-05-31 15:10 | XMS_ITS | Encounter Summary ---
:1965 Author Organization [facility] [place] [address] Care Team Providers Name Role Phone Monica Garcia MD Primary Care Provider Encounter Details Date Type Department Care Team Description 07/14/2014 Orders Only Obstetrics and Gynecology Ida Ron APRN at [facility] Victor Manuel cifuentes OBSTETRICS & [place] [address] [place] [address] [phone] (Wo rk) Social History Tobacco Use Types [...] Hinojosa MD [facility] ER ENDOCRINOLOGY [place], [place] [address] (Wo rk) 07/13/2022 Office Visit Endocrinology Maile Hinojosa MD [facility] ENDOCRINOLOGY [place], [place] [address] (Wo rk) 07/25/2022 Office Visit Pulmonology Tong Norman MD [facility] er Pulmonary Medici [place], [place] [address] (Wo rk) documented as of this encounter Visit Diagnoses Not on filedocumented in this encounter Care Teams Tax Record Clerk Relationship Specialty Start Date End Date Monica Garcia MD PCP - General 01/06/13 02/27/17 [address] [place] [address] documented as of this encounter
--- OUTSIDE RECORDS SUMMARY | 2022-05-31 15:10 | XMS_ITS | Encounter Summary ---
:1965 Author Organization [facility] [place] [address] Care Team Providers Name Role Phone Monica Garcia MD Primary Care Provider Encounter Details Date Type Department Care Team Description 06/18/2014 Hospital Encounter Mammography at [facility] [place] [address] Social History Tobacco Use Types Packs/Day [...] inhaler daily as needed (winter time). Evening [employer] 500 0 08/24/2010 01/24/2015 mg Cap [...] Hinojosa MD [facility] ENDOCRINOLOGY [place], [place] [address] (Wo rk) 07/13/2022 Office Visit Endocrinology Maile Hinojosa MD [facility] ENDOCRINOLOGY [place], [place] [address] (Wo rk) 07/25/2022 Office Visit Pulmonology Tong Norman MD [facility] Dr Cristiane Lux [place], [place] [address] (Wo rk) documented as of [...] screening. is associated with th is study. Ida Ron APRN IMG MAMMO ORDERABLES documented in this encounter Visit Diagnoses Not on filedocumented in this encounter Care Teams Picker Relationship Specialty Start Date End Date Monica Garcia MD PCP - General 01/06/13 02/27/17 [address] [place] [address] documented as of this encounter
--- OUTSIDE RECORDS SUMMARY | 2022-05-31 15:10 | XMS_ITS | Encounter Summary ---
:1965 Author Organization [facility] [place] [address] Care Team Providers Name Role Phone Monica Garcia MD Primary Care Provider Encounter Details Date Type Department Care Team Description 12/07/2014 Orders Only Obstetrics and Gynecology Sarah Jose CNM at [facility] Victor Manuel cifuentes OBSTETRICS & [place] [address] [place] [address] [phone] (Wo rk) Social History Tobacco Use Types [...] Hinojosa MD [facility] ER ENDOCRINOLOGY [place], [place] [address] (Wo rk) 07/13/2022 Office Visit Endocrinology Maile Hinojosa MD [facility] ER ENDOCRINOLOGY [place], [place] 5 (Wo rk) 07/25/2022 Office Visit Pulmonology Tong Norman MD [facility] Pulmonary Medici [place], [place] [address]37 (Wo rk) documented as of this encounter Visit Diagnoses Not on filedocumented in this encounter Care Teams Ground Helper [address] Railway Relationship Specialty Start Date End Date Monica Garcia MD PCP - General 01/06/13 02/27/17 [address] [place] [address] documented as of this encounter
--- OUTSIDE RECORDS SUMMARY | 2022-05-31 15:10 | XMS_ITS | Encounter Summary ---
:1965 Author Organization [facility] [place] [address] Care Team Providers Name Role Phone Monica Garcia MD Primary Care Provider Reason for Visit Reason Onset Date Comments Medication Refill 07/07/2015 Encounter Details Date Type Department Care Team Description 07/07/2015 Telephone Obstetrics and Gynecology Sandra Bolton Medication Refill at [facility] [place], [place] [address] Social History Tobacco Use Types Packs/Day [...] week. Prescription called in to [facility]. Patient called [...] MD [facility] [address] MARMO[address] [place], [place] [address] (Wo rk) 07/13/2022 Office Visit Maile Matson MD [facility] [address]MO[address] [place], [place] [address] (Wo rk) 07/25/2022 Office Visit Pulmonology Tong Norman MD [facility] Pulmonary Medici [place], [place] [address] (Wo rk) documented as of this encounter Visit Diagnoses Not on filedocumented in this encounter Care Teams Inner Layer Scrubber Tender Relationship Specialty Start Date End Date Monica Garcia MD PCP - General 01/06/13 02/27/17 [address] [place] [address] documented as of this encounter
--- OUTSIDE RECORDS SUMMARY | 2022-05-31 15:10 | XMS_ITS | Encounter Summary ---
:1965 Author Organization [facility] [place] [address] Care Team Providers Name Role Phone Suzie Mcintyre APRN Primary Care Provider Encounter Details Date Type Department Care Team Description 03/13/2017 Orders Only [place] [facility] Luis Michael Jr., MD [facility] [place] [address] UROLOGY DEPT. [phone] [place], [place] [address] (Wo rk) Social History Tobacco [...] Description 07/13/2022 Appointment Radiology Maile Hinojosa MD [facility] ER ENDOCRINOLOGY [place], [place] [address] (Wo rk) 07/13/2022 Office Visit Endocrinology Maile Hinojosa MD [facility] DR [place], [place] [address] (Wo rk) 07/25/2022 Office Visit Pulmonology Tong Norman MD [facility] Pulmonary Medici [place] [address] (Wo rk) documented as of this encounter Visit Diagnoses Not on filedocumented in this encounter Care Teams Ammonium Sulfate Operator Relationship Specialty Start Date End Date Suzie Mcintyre APRN PCP - General Family Medicine 02/28/17 06/26/17 documented as of this encounter
--- OUTSIDE RECORDS SUMMARY | 2022-05-31 15:10 | XMS_ITS | Encounter Summary ---
:1965 Author Organization [facility] [place] [address] Care Team Providers Name Role Phone Monica Garcia MD Primary Care Provider Reason for Visit Reason Comments Medication Refill Encounter Details Date Type Department Care Team Description 07/27/2016 [facility] Victor Manuel cifuentes OBSTETRICS & [place] [address] [place] [address] [phone] (Wo rk) Social History Tobacco Use Types [...] Hinojosa MD [facility] ENDOCRINOLOGY [place], [place] [address] (Wo rk) 07/13/2022 Office Visit Endocrinology Maile Hinojosa MD [facility] ENDOCRINOLOGY [place], [place] [address] (Wo rk) 07/25/2022 Office Visit Pulmonology Tong Norman MD [facility] Pulmonary Medici [place], [place] [address] (Wo rk) documented as of this encounter Visit Diagnoses Not on filedocumented in this encounter Care Teams Fiber Machine Tender Relationship Specialty Start Date End Date Monica Garcia MD PCP - General 01/06/13 02/27/17 [address] [place] [address] documented as of this encounter
--- OUTSIDE RECORDS SUMMARY | 2022-05-31 15:10 | XMS_ITS | Encounter Summary ---
:1965 Author Organization [facility] [address] Care Team Providers Name Role Phone Monica Garcia MD Primary Care Provider Reason for Referral MRI/CAT Scan (Routine) - Closed Specialty Diagnoses / Procedures Referred By Contact Refer red To Contact Radiology Diagnoses Ultrasound for screening for growth restriction Ferdinand Michael Jr., MD [facility] Rad Ultrasound Procedures US Retroperitoneal Complete [facility] [place] [address] [place] [address] Referral ID Status Reason Start Date Expiration Date Visits Requ ested Visits Authorized [id number] Closed 05/15/2016 05/15/2017 1 1 Encounter Details Date Type Department Care Team Description 05/16/2015 Orders Only Urology at [facility] Ferdinand Michael Ultrasound for [facility] MD Jules screening [facility] [place] [address] [address] (Primary [phone] UROLOGY DEPT. Dx) [place] [address] Social History Tobacco Use Types Packs/Day Years [...] 07/13/2022 Appointment Radiology Maile Hinojosa MD [facility] ER ENDOCRINOLOGY [place], [place] [address] (Wo rk) 07/13/2022 Office Visit Endocrinology Maile Hinojosa MD [facility] ENDOCRINOLOGY [place], [place] [address] (Wo rk) 07/25/2022 Office Visit Pulmonology Tong Norman MD [facility] Pulmonary Medici ne [place], [place] [address] (Wo rk) documented as of [...] 03:41 pm) Patient Info ID #: ? [id number] ?: [birth year] (49 yrs) Name: ? JESSICA Charles TRESA ?Visit Date: 07/26/2015 03:12 pm Performed By Performed By: ? Ranjit Escobar RDMS Attending: ?Veronica GILL, Butch Maloney Referred By: ?FERDINAND MICHAEL MD Service(s) Provided ??URETRO - Retroperitoneal Complete - I [id number] ? [id number] Indications ??kidney stones Comparison Ultrasound: 02/23/14 ------- [...] 03:41 pm ) Patient Info ID #: [id number] : [birth year] (49 y rs) Name: JESSICA ALBRIGHT Visit Date: 07/26 03:12 pm Performed By Performed By: Maria Teresa Escobar RDMS Attending: [place] MD Referred By: FERDINAND MICHAEL MD Service(s) Provided URETRO - Retroperitoneal Complete - [facility] 3517 [address] Indications kidney stones Comparison Ultrasound: 02/23/14 ------- [...] ultrasonics documented in this encounter Care Teams Repair Mechanic Relationship Specialty Start Date End Date Monica Garcia MD PCP - General 01/06/13 02/27/17 [address] [place] [address] documented as of this encounter
--- OUTSIDE RECORDS SUMMARY | 2022-05-31 15:10 | XMS_ITS | Encounter Summary ---
:1965 Author Organization [facility] Address [facility] [place] [address] Care Team Providers Name Role Phone Monica Garcia MD Primary Care Provider Reason for Visit Reason Comments Annual Exam Encounter Details Date Type Department Care Team Description 08/02/2016 Office Visit Obstetrics and Ida Ron, Encounter [place] [facility] PRESIDENT [facility]ological [facility] examinati on [address] abnormal finding [place], [place] OBSTETRICS & [phone] GYNECOLOGY [phone] [place], [place] [address] Social History Tobacco Use Types [...] in this encounter Progress Notes Ida Ron, GROUP PRESIDENT - 08/02/2016 4:20 PM EST Reason for visit: 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 Created by Karaz EJosephSJosephWJosephLJoseph([employer]) Procedure Date: 01/16/2008 ??? Lithotripsy ??? Knee surgery 03/01/14 Right knee; patella surgery BORE MILL OPERATOR History: Pt is a 50 year [...] a new home in their town of [place], [place]. 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 Eats relatively healthy with fruits, vegetables, yogurt, [...] 8 patch 11 ??? NASONEX 50 mcg/actuation [place], Non-Aerosol 0 ??? SUMAtriptan (IMITREX) 100 mg Tablet 1 ??? levonorgestrel (MIRENA) 20 mcg/24 hr (5 years) IUD 1 each by Intrauterine route once. Lot [id number] ??? omeprazole (PRILOSEC) 20 mg Capsule, Delayed [...] confirms, good tone, no hemorrhoids A: Unremarkable vending stand supervisor exam P: F/U one yr documented in this encounter Plan of Treatment Upcoming Encounters Date Type Specialty Care Team Description 07/13/2022 Appointment Radiology Maile Hinojosa MD [facility] ENDOCRINOLOGY [place], [place] [address] (Wo rk) 07/13/2022 Office Visit Endocrinology Maile Hinojosa MD [facility] DR MARMOLEJO [place], [place] [address] (Wo rk) 07/25/2022 Office Visit Pulmonology Tong Norman MD [facility] Pulmonary Medici ne [place], [place] [address] (Wo rk) documented as of this encounter Visit Diagnoses Diagnosis Encounter for gynecological examination without abnormal finding Routine gynecological examination documented in this encounter Care Teams Multimedia Services Coordinator Relationship Specialty Start Date End Date Monica Garcia MD PCP - General 01/06/13 02/27/17 [address] [place] [address] documented as of this encounter
--- OUTSIDE RECORDS SUMMARY | 2022-05-31 15:10 | XMS_ITS | Encounter Summary ---
:1965 Author Organization [place] [address] Care Team Providers Name Role Phone Monica Garcia MD Primary Care Provider Encounter Details Date Type Department Care Team Description 01/19/2015 Notes Only Obstetrics and Gynecology [place] [address] Social History Tobacco Use Types Packs/Day [...] Hinojosa MD [facility] ENDOCRINOLOGY [place], [place] [address] (Wo rk) 07/13/2022 Office Visit Endocrinology Maile Hinojosa MD [facility] DR MARMOLEJO [place], [place] [address] (Wo rk) 07/25/2022 Office Visit Pulmonology Tong Norman MD [facility] Pulmonary Medici ne [place], [place] [address] (Wo rk) documented as of this encounter Visit Diagnoses Not on filedocumented in this encounter Care Teams Field Artillery Fire Control Man Relationship Specialty Start Date End Date Monica Garcia MD PCP - General 01/06/13 02/27/17 [address] [place] [address] documented as of this encounter
--- OUTSIDE RECORDS SUMMARY | 2022-05-31 15:10 | XMS_ITS | Encounter Summary ---
:1965 Author Organization [facility] [place] [address] Care Team Providers Name Role Phone Monica Garcia MD Primary Care Provider Encounter Details Date Type Department Care Team Description 08/02/2016 Hospital Encounter Mammography at [facility] Rosey Crabtree Visit for screening [facility] MD Ken mammogram [facility] [address] OBSTETRICS & [phone] [place] [address] Social History Tobacco Use Types Packs/Day Years [...] directed NASONEX 50 mcg/actuation 0 05/18/2016 06/11/2018 [place], Non-Aerosol levonorgestrel (MIRENA) 1 each by Intrauterine route once. Lot [id number] 05/01/2016 05/01/2021 20 mcg/24 hr (5 years) [id number] IUD omeprazole (PRILOSEC) 20 PRN 0 03/22/2016 [...] MD [facility] ER ENDOCRINOLOGY [place], [place] [address] (Wo rk) 07/13/2022 Office Visit Endocrinology Maile Hinojosa MD [facility] ER DR JALEEL [place], [place] [address] (Wo rk) 07/25/2022 Office Visit Pulmonology Tong Norman MD [facility] er Pulmonary Medici [place], [place] [address] (Wo rk) documented as of [...] No mammographic evidence of malignancy. RECOMMENDATION: The [employer] and The Society of [...] mammogram documented in this encounter Care Teams Media Consultant Relationship Specialty Start Date End Date Monica Garcia MD PCP - General 01/06/13 02/27/17 [address] [place] [address] documented as of this encounter
--- OUTSIDE RECORDS SUMMARY | 2022-05-31 15:10 | XMS_ITS | Encounter Summary ---
:1965 Author Organization [facility] [place] [address] Care Team Providers Name Role Phone Monica Garcia MD Primary Care Provider Reason for Visit Reason Comments Follow-up Encounter Details Date Type Department Care Team Description 05/31/2016 Office Visit Obstetrics and Gynecology Ida Ron, SACHA IUD check up at [facility] Victor Manuel cifuentes [place] & [place] [address] GYNECOLOGY [phone] [place], [place] [address] (Wo rk) Social History Tobacco [...] Hinojosa MD [facility] DR MARMOLEJO [place], [place] [address] (Wo rk) 07/13/2022 Office Visit Maile Matson MD [facility] DR MARMO[place], [place] [address] (Wo rk) 07/25/2022 Office Visit Pulmonology Tong Norman MD [facility] Pulmonary Medici ne [place], [place] [address] (Wo rk) documented as of this encounter Visit Diagnoses Diagnosis IUD check up Surveillance of previously prescribed in trauterine contraceptive device documented in this encounter Care Teams Shipping And Receiving Specialist Relationship Specialty Start Date End Date Monica Garcia MD PCP - General 01/06/13 02/27/17 [address] [place] [address] documented as of this encounter
--- OUTSIDE RECORDS SUMMARY | 2022-05-31 15:10 | XMS_ITS | Encounter Summary ---
:1965 Author Organization [facility] [place] [address] Care Team Providers Name Role Phone Monica Garcia MD Primary Care Provider Reason for Visit Reason Comments Follow-up Encounter Details Date Type Department Care Team Description 01/24/2015 Follow-Up Obstetrics and Ida Rno Menopausa l hot flushes Gynecology at [facility] [place] [address] OBSTETRICS & [phone] GYNECOLOGY [place], [place] [address] (Wo rk) Social History [...] 07/13/2022 Appointment Radiology Maile Hinojosa MD [facility] MEDICAL [facility] ENDOCRINOLOGY [place], [place] 0[address] (Wo rk) 07/13/2022 Office Visit Endocrinology Maile Hinojosa MD [facility] ENDOCRINOLOGY [place], [place] [address] (Wo rk) 07/25/2022 Office Visit Pulmonology Tong Norman MD [facility] Pulmonary Medici ne [place], [place] [address] (Wo rk) documented as of this encounter [...] Masters MD HEMATOLOGY ORDERABLES Performing Organization Address City/[facility] [place] [address] CERNER MILLENNIUM (ABNORMAL) Hemogram [...] Masters MD HEMATOLOGY ORDERABLES Performing Organization Address City/[facility]/[place] [address] [facility] [address] CERNER ARAMISENNIUM TSH (01/24/2015 5:39 PM EDT) P athologist Signature TSH 2.76 0.27 - 4.20 CERNER mcIU/mL MILLENNIUM Specimen Anatomical Collection Method Collection Time Receive d Time (Source) Location / / Volume Laterality Blood specimen 01/24/2015 5:39 PM 015 5:43 (specimen) EDT PM EDT Resulting Agency Comment Spec In Lab Aylin Masters MD CHEMISTRY ORDERABLES Performing Organization Address City/State/[place] [address] [facility] [address] Drive [facility] documented in this encounter Visit Diagnoses Diagnosis Menopausal hot flushes Symptomatic menopausal or female climact [place] documented in this encounter Care Teams Tobacco Wrapping Machine Tender Relationship Specialty Start Date End Date Monica Garcia MD PCP - General 01/06/13 02/27/17 [address] [place] [address] documented as of this encounter
--- OUTSIDE RECORDS SUMMARY | 2022-05-31 15:10 | XMS_ITS | Encounter Summary ---
:1965 Author Organization [facility] [address] Care Team Providers Name Role Phone Monica Garcia MD Primary Care Provider Encounter Details Date Type Department Care Team Description 06/28/2015 Hospital Encounter Mammography at [facility] NicolásKimberli sheriffan Other screening [facility] MD Ken mammogram [facility] [address] OBSTETRICS & [phone] [place] [address] Social History Tobacco Use Types Packs/Day Years [...] Appointment Radiology Maile Hinojosa MD [facility] MEDICAL [facility] ER ENDOCRINOLOGY [place], [place] [address] (Wo rk) 07/13/2022 Office Visit Endocrinology Maile Hinojosa MD [facility] MED[facility] ENDOCRINOLOGY [place], [place] [address] (Wo rk) 07/25/2022 Office Visit Pulmonology Tong Norman MD [facility] er Pulmonary Medici ne [place], [place] [address] (Wo rk) documented as of this encounter [...] mammogram documented in this encounter Care Teams Social Services Counselor Relationship Specialty Start Date End Date Monica Garcia MD PCP - General 01/06/13 02/27/17 [address] [place] [address] documented as of this encounter
--- OUTSIDE RECORDS SUMMARY | 2022-05-31 15:10 | XMS_ITS | Encounter Summary ---
:1965 [place] [address] Care Team Providers Name Role Phone Suzie Mcintyre APRN Primary Care Provider Encounter Details Date Type Department Care Team Description 03/15/2017 Laboratory Appointment Lab 3L [facility] [place] [address] Social History Tobacco Use Types Packs/Day [...] Maile Hinojosa MD [facility] ENDOCRINOLOGY [place], [place] [address] (Wo rk) 07/13/2022 Office Visit Endocrinology Maile Hinojosa MD [facility] DR MARMOLEJO [place], [place] [address] (Wo rk) 07/25/2022 Office Visit Pulmonology Tong Norman MD [facility] Pulmonary Mediceduardo [place], [place] [address] (Wo rk) documented as of this encounter Procedures Procedure Name Priority Date/Time Associated Diagnosis Comme nts BASIC METABOLIC STAT 03/15/2017 2:36 PM Nephrolithiasis Res ults for this PANEL (NON-FASTING) EDT procedur e are in the results section. documented in this encounter Results Basic Metabolic Panel (non-fasting) (03/15/2017 2:36 PM EDT) athologist Signature Glucose Lvl 93 65 - 199 [facility] mg/dL [facility] Comment: Diabetes: >=200 mg/dL plus symp toms BUN 15 8 - 18 mg/dL [facility] Creatinine 0.82 0.70 - 1.20 mg/dL [facility] Comment: Please note that the pediatric reference intervals supplied above were not validated at [facility]. Results from pediatri c patients should be interpreted in conjunction to the patient's age, height and muscle mass. Sodium 137 135 - 145 mmol/L [facility] Potassium 4.1 3.5 - 5.0 mmol/L [facility] Comment: Please note: ??Patients with WBC >100,00 0 may have falsely elevated Potassium levels. ??For accurate Potassium quantif ication in these patients send serum separator tube (gold top) for subsequent determinations. ??Contact the Clinical Chemistry Laboratory if there are any qu estions. Chloride 101 98 - 107 mmol/L [facility] CO2 24 22 - 31 mmol/L [facility] Anion Gap 12 5 - 15 mmol/L [facility] Calcium 9.3 8.5 - 10.5 mg/dL [facility] Estimated GFR >60 >=60 [facility] Comment: This estimated [...] the following links into your internet browser. [email or web address]://Shopular/DHnkdep [email or web address]://Shopular/DHMCnkf Specimen Anatomical Collection Method Collection Time Receive d Time (Source) Location / / Volume Laterality Blood specimen 03/15/2017 2:36 PM 017 2:47 (specimen) EDT PM EDT Resulting Agency Comment Spec In Lab Luis Michael Jr., MD CHEMISTRY ORDERABLES Performing Organization Address City/State/[place] [address] documented in this encounter Visit Diagnoses Diagnosis Nephrolithiasis Calculus of kidney documented in this encounter Care Teams Design Draftsman Relationship Specialty Start Date End Date Suzie Mcintyre APRN PCP - General Family Medicine 02/28/17 06/26/17 documented as of this encounter
--- OUTSIDE RECORDS SUMMARY | 2022-05-31 15:10 | XMS_ITS | Encounter Summary ---
:1965 Author Organization [facility] [place] [address] Care Team Providers Name Role Phone Monica Garcia MD Primary Care Provider Reason for Visit Reason Comments Annual Exam Encounter Details Date Type Department Care Team Description 06/28/2015 Office Visit Obstetrics and Ida Ron, Encounter for routine gynecological examination; Gynecology at [facility] DRINK MIXER Perimenopause [facility] [address] [place] OBSTETRICS & [address] GYNECOLOGY [phone] [place], [place] [address] Social History Tobacco Use Types [...] in this encounter Progress Notes Ida Ron, DRINK MIXER - 06/28/2015 4:34 PM EST Reason for visit: Annual natural resources engineer exam ROS: RECEPTION CLERK: She is currently using the Estradiol 0.1 [...] Laterality Date ??? Created by leigh ann Morgan([employer]) Procedure Date: 01/16/2008 ??? Lithotripsy ??? Knee surgery 03/01/14 Right knee; patella surgery RECEPTION CLERK History: Pt is a 49 year old [...] a new home in their town [place], [place]. 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 Eats relatively healthy with fruits, vegetables, yogurt, [...] MD [facility] DR MARMOLEJO [place], [place] [address] (Wo rk) 07/13/2022 Office Visit Endocrinology Maile Hinojosa MD [facility] DR MARMOLE[address] [place], [place] [address] (Wo rk) 07/25/2022 Office Visit Pulmonology Tong Norman MD [facility] Pulmonary Medici ne [place], [place] [address] (Wo rk) documented as of this encounter Procedures Procedure Name Priority Date/Time Associated Diagnosis Comme nts RECEPTION CLERK CYTOLOGY Routine 06/28/2015 5:02 Results for this INTERPRETATION PM EST procedure are in the results section. RECEPTION CLERK CYTOLOGY FINAL Routine 06/28/2015 5:02 Result s for this REPORT PM EST procedure are i n the results section. CYTOPATHOLOGY Routine 06/28/2015 5:02 Encounter for routine Re sults for this GYNECOLOGICAL PM EST gynecological procedure are in examination the results section. documented in this encounter Results RECEPTION CLERK Cytology Interpretation (06/28/2015 5:02 PM EST) Component Value Ref Test Analysis Performed At [facility] Method Time Signature Manager Intern Cytology Unsatisfactory CERNER Interpretation [facility] Comment: Manager Intern Cytology Final Report Acces kednall: [id number] Manager Intern Cytology Comment Present [facility] Endocervical Component Unsatisfactory CE RNER [facility] Specimen Anatomical Collection Method Collection Time Receive d Time (Source) Location / / Volume Laterality AP Specimen 06/28/2015 5:02 PM 5 5:32 EST PM EST Rosey Crabtree MD PATHOLOGY/CYTOLOGY ORDERABLE S Performing Organization Address City/State/[place] [address] [facility] Manager Intern Cytology Final Report (06/28/2015 5:02 PM EST) Component Value Ref Test Analysis Performed At [facility] Method Time Signature Manager Intern Cytology The signing pathologist has (i) examined the relevant preparation(s) for the [facility] Final Report specimen(s) and (ii) rendered or confirmed the diagnosis (es). [facility] Accession Number: [id number] ?Location: 5 L . ? Manager Intern Final DIAGNOSIS Unsatisfactory Specimen submitted is unsatisfactory for evaluation. ??See verna dewitt. 07/05/15 ?? Screened by: ??LMY ??SLA 07/05/15 ?? Verified by: ??A AVI stone(ASCP), Suzie Braswell - Commissioner Of Conciliation DISCUSSION Specimen processed and exami bhumika microscopically [...] I.U.D.?: ? No Pelvic Radiation: ?No Prior RECEPTION CLERK Therapy?: ?Other (comment) Hist Abnl Pap/Biopsy?: ?? Yes, history of previous abnormal Pap Hist of HPV Vaccine?: ?No Hist of Smoking?: ?No Hist of HAZEL exposure?: ?? No ICD Diagnosis: ? Z12.4 Encounter for screening for malignant neoplasm of cervix Clinical Data, Significant Therapy and Clinical Impression: ?_ This Pap Test has been evalu ated with the assistance of the MippinPrep Pap Test Imaging System. Note: The Pap test is a screening test for cervical cancer with an inherent false-negative rate dependent upon several variables. ??For further information please contact the [facility] Laboratory. Reference: ??Devika LEON. ? ?Pharmacy Technician Instructor of Pap Smear Results. ??In: ??Sukumar BS, Roni HH, ed. ??The Pap Smear. ??[place]: ??Jonah, 2002: ? ?71-77. Specimen (Source) Anatomical Collection Method Collection Time Re ceived Time Location / / Volume Laterality 06/28/2015 5:02 PM EST Rosey Crabtree MD PATHOLOGY/CYTOLOGY ORDERABLE S Performing Organization Address City/State/[place] [address] [facility] Gynecological (06/28/2015 5:02 PM EST) Specimen Anatomical Collection Method Collection Time Receive d Time (Source) Location / / Volume Laterality AP Specimen 06/28/2015 5:02 PM 5 5:02 EST PM EST Narrative [facility] - 06/28/2015 5:[address] Specimen requisition ordered. ??Separate Pathology report to follow Rosey Crabtree MD PATHOLOGY/CYTOLOGY ORDERABLE S Performing Organization Address City/State/[place] [address] [facility] documented in this encounter Visit Diagnoses Diagnosis Encounter for routine gynecological exam ination Routine gynecological examination Perimenopause Symptomatic menopausal or female climact [place] documented in this encounter Care Teams Solution Consultant Relationship Specialty Start Date End Date Monica Garcia MD PCP - General 01/06/13 02/27/17 [address] [place] [address] documented as of this encounter
--- OUTSIDE RECORDS SUMMARY | 2022-05-31 15:11 | XMS_ITS | Encounter Summary ---
:1965 Author Organization [facility] [place] [address] Care Team Providers Name Role Phone Monica Garcia MD Primary Care Provider Encounter Details Date Type Department Care Team Description 07/25/2011 Hospital Encounter XRay at [facility] Nephrolithiasis [address] [place] [address] [place] [phone] Social History Tobacco Use Types Packs/Day [...] HCL (SERTRALINE 0 0 03/31/2013 ORAL) Evening [employer] [place] [employer] 500 0 08/24/2010 01/24/2015 mg Cap [...] Hinojosa MD [facility] ENDOCRINOLOGY [place], [place] [address] (Wo rk) 07/13/2022 Office Visit Endocrinology Maile Hinojosa MD [facility] DR MARMOLEJO [place], [place] [address] (Wo rk) 07/25/2022 Office Visit Pulmonology Tong Norman MD [facility] Pulmonary Medici ne [place], [place] [address] (Wo rk) documented as of [...] kidney documented in this encounter Care Teams Aircraft Engine Specialist Relationship Specialty Start Date End Date Monica Garcia MD PCP - General 07/18/10 03/05/12 [address] [place] [address] documented as of this encounter
--- OUTSIDE RECORDS SUMMARY | 2022-05-31 15:11 | XMS_ITS | Encounter Summary ---
:1965 Author Organization [facility] [place] [address] Care Team Providers Name Role Phone Monica Garcia MD Primary Care Provider Encounter Details Date Type Department Care Team Description 04/24/2013 Hospital Encounter Mammography at [facility] [place] [address] Social History Tobacco Use Types Packs/Day [...] daily as needed (winter time). Evening [place] [employer] 500 0 08/24/2010 01/24/2015 mg Cap [...] Hinojosa MD [facility] ENDOCRINOLOGY [place], [place] [address] (Wo rk) 07/13/2022 Office Visit Endocrinology Maile Hinojosa MD [facility] ENDOCRINOLOGY [place], [place] [address] (Wo rk) 07/25/2022 Office Visit Pulmonology Tong Norman MD [facility] Pulmonary Medici ne [place], [place] [address] (Wo rk) documented as [...] on filedocumented in this encounter Care Teams Turpentine Distiller Relationship Specialty Start Date End Date Monica Garcia MD PCP - General 01/06/13 02/27/17 [address] [place] [address] documented as of this encounter
--- OUTSIDE RECORDS SUMMARY | 2022-05-31 15:11 | XMS_ITS | Encounter Summary ---
:1965 Author Organization [facility] [place] [address] Care Team Providers Name Role Phone Monica Garcia MD Primary Care Provider Reason for Visit Reason Onset Date Comments Medication Refill 04/23/2014 Encounter Details Date Type Department Care Team Description 04/23/2014 Refill Obstetrics [place] [address] Social History Tobacco Use Types Packs/Day [...] Climara patch for 1 month. Plan/Instructions: This lyric writer contacted Pt and she has scheduled her annual appt for May. documented in this encounter Plan of Treatment Upcoming Encounters Date Type Specialty Care Team Description 07/13/2022 Appointment Radiology Maile Hinojosa MD [facility] ENDOCRINOLOGY [place], [place] [address] (Wo rk) 07/13/2022 Office Visit Endocrinology Maile Hinojosa MD [facility] ENDOCRINOLOGY [place], [place] [address] (Wo rk) 07/25/2022 Office Visit Pulmonology Tong Norman MD [facility] Pulmonary Medici ne [place], [place] [address] (Wo rk) documented as of this encounter Visit Diagnoses Not on filedocumented in this encounter Care Teams Profile Saw Operator Relationship Specialty Start Date End Date Monica Garcia MD PCP - General 01/06/13 02/27/17 [address] [place] [address] documented as of this encounter
--- OUTSIDE RECORDS SUMMARY | 2022-05-31 15:11 | XMS_ITS | Encounter Summary ---
:1965 Author Organization [facility] [place] [address] Care Team Providers Name Role Phone Monica Garcia MD Primary Care Provider Reason for Visit Reason Comments Osteoporosis Encounter Details Date Type Department Care Team Description 03/31/2013 Office Visit Endocrinology at [facility] Jennifer Pike, Osteoporosis (Primary [facility] Dx) [place] [address] CENTER [phone] ENDOCRINOLOGY DEPT [place] [address] Social History Tobacco Use Types Packs/Day Years [...] follow up of 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She was evaluated by STONE CARVER and found to have osteoporosis on Dexa [...] with Dr Daniel Romero MD Endocrinology Fellow 1448 documented in this encounter Plan of Treatment Upcoming Encounters Date Type Specialty Care Team Description 07/13/2022 Appointment Radiology Maile Hinojosa MD [facility] ENDOCRINOLOGY [place], [place] [address] (Wo rk) 07/13/2022 Office Visit Endocrinology Maile Hinojosa MD [facility] END[facility] [place], [place] [address] (Wo rk) 07/25/2022 Office Visit Pulmonology Tong Norman MD [facility] Pul[facility] Medici [place], [place] [address] (Wo rk) documented as of this encounter [...] 44 30 - 100 CERNER Total ng/mL [facility] Comment: Deficient <10 ng/mL Insufficient 10 to [...] Organization Address City/State/[place] [address] CERNER MILLENNIUM Calcium (03/31/2013 2:27 PM EDT) P athologist Signature Calcium 9.5 8.5 - 10.5 CERNER mg/dL MILLENNIUM Specimen Anatomical Collection Method Collection Time Receive d Time (Source) Location / / Volume Laterality Blood specimen 03/31/2013 2:27 PM 013 2:43 (specimen) EDT PM EDT Resulting Agency Comment Spec In Lab Dang Sanchez MD CHEMISTRY ORDERABLES Performing Organization Address City/State/ZIP Code Phon e Number [address] CERNER MILLENNIUM documented in this encounter Visit Diagnoses Diagnosis Osteoporosis - Primary Osteoporosis, unspecified documented in this encounter Care Teams Home Mortgage Disclosure Act Specialist Relationship Specialty Start Date End Date Monica Garcia MD PCP - General 01/06/13 02/27/17 [address] [place] [address] documented as of this encounter
--- OUTSIDE RECORDS SUMMARY | 2022-05-31 15:11 | XMS_ITS | Encounter Summary ---
:1965 Author Organization [facility] [place] [address] Care Team Providers Name Role Phone Monica Garcia MD Primary Care Provider Encounter Details Date Type Department Care Team Description 06/09/2014 Hospital Encounter Mammography at [facility] [place] [address] Social History Tobacco Use Types Packs/Day [...] inhaler daily as needed (winter time). Evening [place] Oil 500 0 08/24/2010 01/24/2015 mg Cap [...] MD [facility] ENDOCRINOLOGY [place], [place] [address] (Wo rk) 07/13/2022 Office Visit Endocrinology Maile Hinojosa MD [facility] ENDOCRINOLOGY [place], [place] [address] (Wo rk) 07/25/2022 Office Visit Pulmonology Tong Norman MD [facility] Dr Cristiane Lux [place], [place] [address] (Wo rk) documented as of [...] may return to routine screening. ?? and [id number] are assoc iated with this study. ?? [...] Patient may return to routine screening. and [id number] are assoc iated with this study. Ida Ron APRN IMG MAMMO ORDERABLES documented in this encounter Visit Diagnoses Not on filedocumented in this encounter Care Teams Lamination Inspector Relationship Specialty Start Date End Date Monica Garcia MD PCP - General 01/06/13 02/27/17 [address] [place] [address] documented as of this encounter
--- OUTSIDE RECORDS SUMMARY | 2022-05-31 15:11 | XMS_ITS | Encounter Summary ---
:1965 Author Organization [facility] [place] [address] Care Team Providers Name Role Phone Monica Garcia MD Primary Care Provider Encounter Details Date Type Department Care Team Description 10/04/2011 Hospital Encounter Ultrasound at [facility] [place] [address] Social History Tobacco Use Types Packs/Day [...] HCL (SERTRALINE 0 0 03/31/2013 ORAL) Evening [place] Oil 500 0 08/24/2010 01/24/2015 mg Cap [...] [facility] DR MARMOLEJO [place], [place] [address] (Wo rk) 07/13/2022 Office Visit Endocrinology Maile Hinojosa MD [facility] MEDICAL [facility] DR MARMOLEJO [place], [place] [address] (Wo rk) 07/25/2022 Office Visit Pulmonology Tong Norman MD [facility] er Pulmonary Medici [place] [address] (Wo rk) documented as of this encounter [...] 04 :08 pm) Patient Info ID: ? [id number] ? : ??[birth year] (46 yrs) Name: ? JESSICA GTZ ? Visit Date: 10/04/2011 03:50 pm Performed By Performed By: ?Lay Nichols RDMS Attending: ? Marcus Rush, Michelle Referred By: ? BOBBY Rush Service(s) Provided UTV - Ultrasound - Transvaginal - [phone] ? [id number] Indications Reason for exam and clinical history: [...] Final 10/04/2011 04:08 pm) Patient Info ID: [id number] : [birth year] (46 yrs ) Name: JESSICA GTZ Visit Date: 10/04 03:50 pm Performed By Performed By: Lay Nichols [facility] Attending: Michelle Walsh MD Referred By: BOBBY LAGOS MD Service(s) Provided [place] - Ultrasound - Transvaginal - [phone] Indications Reason for exam and clinical history: [...] cyst documented in this encounter Care Teams Survey Research Analyst Relationship Specialty Start Date End Date Monica Garcia MD PCP - General 07/18/10 03/05/12 [address] [place] [address] documented as of this encounter
--- OUTSIDE RECORDS SUMMARY | 2022-05-31 15:11 | XMS_ITS | Encounter Summary ---
:1965 Author Organization [facility] [place] [address] Care Team Providers Name Role Phone Monica Garcia MD Primary Care Provider Encounter Details Date Type Department Care Team Description 01/09/2013 Orders Only Endocrinology at [facility] C Jennifer Romero, Osteoporosis (Primary [facility] Dx) [place] [address] CENTER [phone] ENDOCRINOLOGY DEPT [place], [place] [address] Social History Tobacco Use Types [...] Maile Hinojosa MD [facility] ER ENDOCRINOLOGY [place], [place] 0[address] (Wo rk) 07/13/2022 Office Visit Endocrinology Maile Hinojosa MD [facility] ENDOCRINOLOGY [place], [place] [address] (Wo rk) 07/25/2022 Office Visit Pulmonology Tong Norman MD [facility] Pulmonary Medici ne [place], [place] [address] (Wo rk) documented as of this encounter Visit Diagnoses Diagnosis Osteoporosis - Primary Osteoporosis, unspecified documented in this encounter Care Teams Senior C Developer Relationship Specialty Start Date End Date Monica Garcia MD PCP - General 01/06/13 02/27/17 [address] [place] [address] documented as of this encounter
--- OUTSIDE RECORDS SUMMARY | 2022-05-31 15:11 | XMS_ITS | Encounter Summary ---
:1965 [place] [address] Care Team Providers Name Role Phone Monica Garcia MD Primary Care Provider Reason for Visit Reason Comments Annual Exam Encounter Details Date Type Department Care Team Description 06/09/2014 Office Visit Obstetrics and CLINIC, DR KENZIE fleming s, Gynecology at [facility] Ida Ron, [facility] OBSTETRICS [place] [address] perimenopausal ([facility] Dx) [place] [id number] Social History Tobacco Use Types Packs/Day Years [...] in this encounter Progress Notes Ida Ron, CARDIAC/VASCULAR SONOGRAPHER - 06/10/2014 8:23 AM EDT Reason for visit: Annual client services manager exam ROS: GI: Denies any leakage of stool. : Denies any leakage of urine or urinary frequency, urgency, or burning. STACKING MACHINE OPERATOR: Reported yeast infection 3 weeks ago with [...] History Procedure Date ??? Created by interface [email or web address]) Procedure Date: 01/16/2008 ??? Lithotripsy ??? Knee surgery 03/01/14 Right knee; patella surgery STACKING MACHINE OPERATOR History: Pt is a 48 year old [...] a new home in their town of [place], [place]. 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 Eats relatively healthy with fruits, vegetables, yogurt, [...] skin once a week. No refills without Developmental Behavioral Physician appt. 4 patch 0 ??? amitriptyline (ELAVIL) [...] mg by mouth every morning. ??? Evening [place] Oil 500 mg Cap ??? albuterol (ACCUNEB) [...] confirms, good tone, no hemorrhoids A: Unremarkable client services manager exam Hot flushes, worsening P: Since climara Pro does not come in a higher dose, will switch to Combipatch 0.05/0.14 semi weekly. If she is still experiencing vasomotor symptoms, will switch to higher dose. She is aware it is twice weekly. JulySulema dockery Natalie - 06/09/2014 4:34 PM EDT S: Annual STACKING MACHINE OPERATOR Exam. ROS: GI: Denies any leakage of stool. : Denies any leakage of urine or urinary frequency, urgency, or burning. STACKING MACHINE OPERATOR: Reported yeast infection 3 weeks ago with [...] Surgical History Procedure Date ??? Created by [employer] EJosephSJosephWJosephLJoseph(MSUROL) Procedure Date: 01/16/2008 ??? Lithotripsy ??? Knee [...] a new home in their town of [place], [place]. 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 Eats relatively healthy with fruits, vegetables, yogurt, [...] skin once a week. No refills without Developmental Behavioral Physician appt. 4 patch 0 ??? amitriptyline (ELAVIL) [...] mg by mouth every morning. ??? Evening [place] Oil 500 mg Cap ??? albuterol (ACCUNEB) [...] (138 lb) BMI 20.99 kg/m2 LMP 06/06/2014 STACKING MACHINE OPERATOR History: Pt is a 48 year old [...] masses palpated. Climara Pro patch to LLQ. STACKING MACHINE OPERATOR Exam: External Genitalia: [place], no lesions visualized. Urethral Meatus: No masses or lesions. Vagina: [place], no lesions noted however view of canal somewhat obstructed due to current bleeding from menses. Cervix: Smooth, pink, no CMT noted. Cervix visualized; no lesions noted. Uterus: Anteverted/Anteflexed, no masses palpated. Adnexa: Without masses. A: Pt is a 48 year old perimenopausal woman who does not routinely see her PCP and is here for her Annual Developmental Behavioral Physician Exam; exam findings benign, however patient would [...] - Pt to start decreasing dosing of Berkley oil at night. - Climara patch d/c, [...] noted above. Patient seen in conjunction with [facility] ROOM ASSOCIATE Student, Sulema Mcdowell. documented in this encounter Plan of Treatment Upcoming Encounters Date Type Specialty Care Team Description 07/13/2022 Appointment Radiology Maile Hinojosa MD [facility] MEDICAL [facility] ER DR JALEEL [place], [place] [address] (Rahul ascencio) 07/13/2022 Office Visit Endocrinology Maile Hinojosa MD [facility] MEDICAL [facility] DR JALEEL [place], [place] [address] (Rahul ascencio) 07/25/2022 Office Visit Pulmonology Tong Norman MD [facility] Medical [facility] Pulmonary Medici [place], [place] [address] (Wo rk) documented as of this encounter Visit Diagnoses Diagnosis Hot flushes, perimenopausal - Primary Symptomatic menopausal or female climact [place] documented in this encounter Care Teams Necktie Operator Pockets And Pieces Relationship Specialty Start Date End Date Monica Garcia MD PCP - General 01/06/13 02/27/17 [address] [place] [address] documented as of this encounter
--- OUTSIDE RECORDS SUMMARY | 2022-05-31 15:11 | XMS_ITS | Encounter Summary ---
:1965 Author Organization [facility] [place] [address] Care Team Providers Name Role Phone None Primary Care Provider Unavailable Encounter Details Date Type Department Care Team Description 03/06/2012 Hospital Encounter Mammography at [facility] [place] [address] Social History Tobacco Use Types Packs/Day [...] HCL (SERTRALINE 0 0 03/31/2013 ORAL) Evening [place] Oil 500 0 08/24/2010 01/24/2015 mg Cap [...] Hinojosa MD [facility] ENDOCRINOLOGY [place], [place] [address] (Wo rk) 07/13/2022 Office Visit Endocrinology Maile Hinojosa MD [facility] ENDOCRINOLOGY [place], [place] [address] (Wo rk) 07/25/2022 Office Visit Pulmonology Tong Norman MD [facility] Pulmonary Medici [place], [place] [address] (Wo rk) documented as of this encounter Procedures Procedure Name Priority Date/Time Associated Diagnosis Comme nts MANAGER REPORTING CYTOLOGY FINAL Routine 03/06/2012 8:45 PM Res ults for this REPORT EDT procedure are i n the results section. MAMMO SCREENING CAD Routine 03/06/2012 3:58 PM Re sults for this BILATERAL EDT procedure are i n the results section. documented in this encounter Results MANAGER REPORTING CYTOLOGY FINAL REPORT (03/06/2012 8:45 PM EDT) Component Value Ref Test Analysis Performed At [facility] Range Method Time Signature Deicer Tester Cytology CERNER Final Report ? [facility] ? Provider: ?? IND[place] BIRCH ?Pt. Name: ?? LAW SON, JESSICA Charles ? Acc #: ?[id number] ?Pt. MRN: ?[id number] ? Col Date: ?? 03/06/2012 ? /Sex: ?1 10/14/1964,(46 ? years),Female ? Rec Date: ?? 03/06/2012 ? LOC: ?5L ? CYTOPATHOLOGY: ??MANAGER REPORTING ? ---Adequacy--- ? Specimen submitted is satisfactory. ? Endocervical component present. ? ---Cytopathologic Diagnosis--- ? Infection and/or Reactive Repair Process. ? Note: ??Reactive changes are present in the epithel ial cells (benign ? cellular changes). ?? This Pap test is negative for intraepithelial lesion ? or malignancy. (NILM) ? 03/19/12 ?? Screened by: ??SLA ??TRIM AND BURR OPERATOR ? 03/23/12 ?? Verified by: ??YUNG GILL , DRE - Pathologist ? ---Clinical Information--- ? HPV Option: ? Reflex HPV ? Preparation: ?Liquid Based Pap ? Specimen Source: ?Cervical Endocervical LBP ? LMP: ?continous bleeding ? Hormones?: ?Yes ? Hysterectomy?: ?No ?: ?No ?: ?No ? I.U.D.?: ?No ? Pelvic Radiation: ? No ? Prior MANAGER REPORTING Therapy?: ? No ? Hist Abnl Pap/Biopsy?: [...] ??For further ? information please contact the [facility]. ? Reference: ??Antwan sheriff CS. ??Multiple Sclerosis Nurse of Pap Smear Results. ??In: ? Sukumar BS, Roni HH, ed. ??The Pap Smear. ??[place]: ??Jonah, 2002: ? 71-77. Specimen (Source) Anatomical Collection Method Collection Time Re ceived Time Location / / Volume Laterality 03/06/2012 8:45 PM EDT Indiana Birch MD PATHOLOGY/CYTOLOGY ORDERABLE S Performing Organization Address City/State/ZIP Code Phon e Number [place] [phone]OSPITAL LAB[address] Drive CERNER MILLENNIUM MAMMO DIGITAL BILATERAL SCREENING WITH CAD (03/06/2012 [...] on filedocumented in this encounter Care Teams Webbing Weaver Relationship Specialty Start Date End Date None PCP - General 03/06/12 01/05/13 None documented as of this encounter
--- OUTSIDE RECORDS SUMMARY | 2022-05-31 15:11 | XMS_ITS | Encounter Summary ---
:1965 Author Organization [facility] [place] [address] Care Team Providers Name Role Phone Monica Garcia MD Primary Care Provider Encounter Details Date Type Department Care Team Description 01/08/2012 Hospital Encounter Ultrasound at [facility] [place] [address] Social History Tobacco Use Types Packs/Day [...] HCL (SERTRALINE 0 0 03/31/2013 ORAL) Evening [place] Oil 500 0 08/24/2010 01/24/2015 mg Cap [...] Hinojosa MD [facility] ENDOCR[facility]Y [place], [place] [address] (Wo rk) 07/13/2022 Office Visit Endocrinology Maile Hinojosa MD [facility] ENDOCR[facility] [place], [place] [address] (Wo rk) 07/25/2022 Office Visit Pulmonology Tong Norman MD [facility] Pulmonary Medici [place], [place] [address] (Wo rk) documented as of [...] 04 :58 pm) Patient Info ID: ? [id number] ? : ??[birth year] (46 yrs) Name: ? JESSICA GTZ ? Visit Date: 01/08/2012 04:29 pm Performed By Performed By: ?Akash Muse RDMS Attending: ? Veronica GILL, Weston Maloney Referred By: ? FERDINAND MICHAEL MD Service(s) Provided URETRO - Retroperitoneal Complete - [phone] ? [id number] Indications Nephrolithiasis Right Kidney Size (cm) ?L: [...] Final 01/08/2012 04:58 pm) Patient Info ID: [id number] : [birth year] (46 yrs ) Name: JESSICA GTZ Visit Date: 01/07 04:29 pm Performed By Performed By: Akash Muse RDMS Attending: Weston Martin MD Referred By: FERDINAND MICHAEL MD Service(s) Provided URETRO - Retroperitoneal Complete - [phone] Indications Nephrolithiasis Right Kidney Size (cm) L: [...] Electronically Signed Final Report 01/07 04:58 pm Feridnand Michael Jr., MD IMG US GEN ORDERABLES documented in this encounter Visit Diagnoses Diagnosis Nephrolithiasis Calculus of kidney documented in this encounter Care Teams Laminating Machine Feeder Relationship Specialty Start Date End Date Monica Garcia MD PCP - General 07/18/10 03/05/12 [address] [place] [address] documented as of this encounter
--- OUTSIDE RECORDS SUMMARY | 2022-05-31 15:11 | XMS_ITS | Encounter Summary ---
:1965 Author Organization [facility] [place] [address] Care Team Providers Name Role Phone None Primary Care Provider Unavailable Reason for Visit Reason Comments Osteoporosis Encounter Details Date Type Department Care Team Description 03/25/2012 Office Visit Endocrinology at [facility] Cuate [place] MD Osteoporosis (Primary [facility] [place] [address] ENDOCRINOLOGY [phone] [place], [place] [address] Social History Tobacco Use Types [...] 46 y.o. year old female evaluated by VOICE PATHOLOGIST and found to have osteoporosis on Dexa [...] calcium 03/02 242 09/02 378 Assessment: Stacy Albrigth is a 46 y.o. year old female [...] total Calcium (Dietary+supplement) of 1200-1500mg and vitamin F83124 IU daily.Patient should not exceed 1500 mg [...] with Dr Isabel Romero MD Endocrinology Fellow 0968 documented in this encounter Plan of Treatment Upcoming Encounters Date Type Specialty Care Team Description 07/13/2022 Appointment Radiology Maile Hinojosa MD [facility] DR MARMOLEJO [place], [place] [address] (Wo rk) 07/13/2022 Office Visit Endocrinology Maile Hinojosa MD [facility] DR MARMOLEJO [place], [place] [address] (Wo rk) 07/25/2022 Office Visit Pulmonology Tong Norman MD [facility] Pulmonary Medici [place], [place] 0[address] (Wo rk) documented as of this encounter [...] Organization Address City/State/[place] [address] CERNER MILLENNIUM PTH (03/25/2012 [...] Address City/State/ZIP Code [place] [address] CERNER MILLENNIUM VIT D [...] of 10/02/2011 the Vitamin D Total, 25 [place] xy assays are being analyzed by the [facility]. ??There is NO CHANGE in units. ??Please contact the chemistry laboratory at [phone] with kentrell laguerre. Specimen Anatomical Collection Method Collection Time Receive d Time (Source) Location / / Volume Laterality Blood specimen 03/25/2012 2:53 PM 012 3:18 (specimen) EDT PM EDT Resulting Agency Comment Spec In Lab Cuate Hall MD CHEMISTRY ORDERABLES Performing Organization Address City/[facility]/ZIP Code [place] [address] CERNER MILLENNIUM documented in this encounter Visit Diagnoses Diagnosis Osteoporosis - Primary Osteoporosis, unspecified documented in this encounter Care Teams Greens Planter Relationship Specialty Start Date End Date None PCP - General 03/06/12 01/05/13 None documented as of this encounter
--- OUTSIDE RECORDS SUMMARY | 2022-05-31 15:11 | XMS_ITS | Encounter Summary ---
:1965 Author Organization [facility] [place] [address] Care Team Providers Name Role Phone None Primary Care Provider Unavailable Reason for Visit Reason Comments Follow-up f/u ovarian cyst/ annual Encounter Details Date Type Department Care Team Description 03/06/2012 Follow-Up Obstetrics and CLINIC, DR ESPINO Pap smear for cervical cancer screening (Primary Dx); Gynecology at [facility] Ramses Birch MD [facility] OBSTETRICS & [place] [address] Perimenopause; [place] [address] Social History Tobacco Use Types Packs/Day [...] Ramses Birch - 03/06/2012 4:12 PM EDT INSIDE SALES SPECIALIST Comprehensive History and Physical Exam Stacy Albright [id number] 1965 Service Date: 03/06/2012 ID/CC: 46 y.o. [...] Raynaud's disease ??? Migraines ??? Perimenopause Past MACHINE SIZER History: Pregnancies: OB History Grav Para Term [...] Surgical History Procedure Date ??? Created by [employer].(CorhythmUROcFares) Procedure Date: 01/16/2008 ??? Lithotripsy Family History: [...] ??? SERTRALINE HCL (SERTRALINE ORAL) ??? Evening [place] Oil 500 mg Cap ??? albuterol (ACCUNEB) [...] lb) Please see PE section below for non-prototype fabricator exam Female process camera operator present for breast and pelvic exam Breasts: [...] eD - please see PE section for non-prototype fabricator exam Subjective: Patient ID: Stacy Albright is [...] Maile Hinojosa MD [facility] [address] JALEEL [place] [address] (Rahul ascencio) 07/13/2022 Office Visit Endocrinology Maile Hinojosa MD [facility] DR JALEEL [place] [address] (Wo rk) 07/25/2022 Office Visit Pulmonology Tong Norman MD [facility] Pulmonary [place], [place] [address] (Wo rk) documented as of this encounter [...] 2 5:00 EDT PM EDT Narrative CERNER ARAMISENNIUM - 03/06/2012 5:00 PM E DT Specimen requisition ordered. ??Separate Pathology report to follow Aylin Masters MD PATHOLOGY/CYTOLOGY ORDERABLE S Performing Organization Address City/State/[place] [address] [facility] documented in this encounter Visit Diagnoses Diagnosis Pap smear for cervical cancer screening - Primary Screening for malignant neoplasm of the cervix Perimenopause Symptomatic menopausal or female climact [place] Osteoporosis Osteoporosis, unspecified documented in this encounter Care Teams Field Crops Harvest Machine Operator Relationship Specialty Start Date End Date None PCP - General 03/06/12 01/05/13 None documented as of this encounter
--- OUTSIDE RECORDS SUMMARY | 2022-05-31 15:11 | XMS_ITS | Encounter Summary ---
:1965 Author Organization [facility] [place] [address] Care Team Providers Name Role Phone None Primary Care Provider Unavailable Reason for Visit Reason Comments Medication Refill Encounter Details Date Type Department Care Team Description 06/24/2012 Refill Obstetrics and Gynecology at Ramses Boyce MD [facility] Victor Manuel cifuentes OBSTETRICS & [place] [address] [place] [address] [phone] Social History Tobacco Use Types Packs/Day Years [...] MD [facility] ENDOCRINOLOGY [place], [place] [address] (Wo rk) 07/13/2022 Office Visit Endocrinology Maile Hinojosa MD [facility] ENDOCRINOLOGY [place], [place] [address] (Wo rk) 07/25/2022 Office Visit Pulmonology Tong Norman MD [facility] Medical [facility] er Pulmonary Medici ne [place], [place] [address] (Wo rk) documented as of this encounter Visit Diagnoses Not on filedocumented in this encounter Care Teams Domestic Technician Relationship Specialty Start Date End Date None PCP - General 03/06/12 01/05/13 None documented as of this encounter
--- OUTSIDE RECORDS SUMMARY | 2022-05-31 15:11 | XMS_ITS | Encounter Summary ---
:1965 Author Organization [facility] [address] Care Team Providers Name Role Phone Monica Garcia MD Primary Care Provider Encounter Details Date Type Department Care Team Description 02/23/2014 Hospital Encounter [place] [facility] [place] [address] Social History Tobacco Use Types Packs/Day [...] inhaler daily as needed (winter time). Evening [place] Oil 500 0 08/24/2010 01/24/2015 mg Cap [...] Hinojosa MD [facility] ENDOCRINOLOGY [place], [place] [address] (Wo rk) 07/13/2022 Office Visit Endocrinology Maile Hinojosa MD [facility] ENDOCRINOLOGY [place], [place] [address] (Wo rk) 07/25/2022 Office Visit Pulmonology Tong Norman MD [facility] Pulmonary Medici ne [place], [place] 6 (Wo rk) documented as of this encounter [...] Final 02/23/2014 05:20 pm) Patient Info ID: ?[id number] ?: ??[birth year] (48 yrs) Name: ?JESSICA GTZ ?Visit Date: 02/23/2014 04:19 pm Performed By Performed By: ?Mariann Leonard RDMS Associate: ? Jabari GILL, Bobby Alvarez Attending: ? Genie Carrasco MD Referred By: ? FERDINAND MICHAEL MD Service(s) Provided URETRO - Retroperitoneal Complete - 002 [id number] ? [id number] Indications Hx of kidney stones Comparison Renal/bladder [...] to call if you have any questions. ?eGnie lopez MD Electronically Signed Final Report ?? 05:20 pm Film and interpretation reviewed by the attending Procedure Note Genie Carrasco MD - 02/23/2014Formatt ing of this note might be different from the original. Renal (Signed Final 02/23/2014 05:20 pm) Patient Info ID: [id number] : [birth year] (48 yrs ) Name: JESSICA GTZ Visit Date: 02/23 04:19 pm Performed By Performed By: Mariann Leonard RDMS Associate: Jabari GILL, Bobby Alvarez Attending: Luna GILL, Genie Dumont Referred By: FERDINAND MICHAEL MD Service(s) Provided URETRO - Retroperitoneal Complete - 002 [id number] Indications Hx of kidney stones Comparison Renal/bladder [...] kidney documented in this encounter Care Teams Child Care Attendant School Relationship Specialty Start Date End Date Monica Garcia MD PCP - General 01/06/13 02/27/17 [address] [place] [address] documented as of this encounter
--- OUTSIDE RECORDS SUMMARY | 2022-05-31 15:11 | XMS_ITS | Encounter Summary ---
:1965 Author Organization [facility] [place] [address] Care Team Providers Name Role Phone None Primary Care Provider Unavailable Reason for Visit Reason Comments Nephrolithiasis Encounter Details Date Type Department Care Team Description 07/08/2012 Follow-Up Urology at [facility] CL[facility]IC, DR ESPINO Nephrolithiasis (Primary [facility] Ferdinand Michael Jr., MD [facility] [place] [address] Dx) [place] [id number] Social History Tobacco Use Types Packs/Day Years [...] Maile Hinojosa MD [facility] ENDOCRINOLOGY [place], [place] [address] (Wo rk) 07/13/2022 Office Visit Endocrinology Maile Hinojosa MD [facility] DR MARMOLEJO [place], [place] [address] (Wo rk) 07/25/2022 Office Visit Pulmonology Tong Norman MD [facility] Pulmonary Medici [place], [place] [address] (Wo rk) documented as of this encounter Results US retroperitoneal complete (01/06/2013 2:23 PM EDT) Anatomical Region Laterality Modality Abdomen Ultrasound Specimen (Source) Anatomical Collection Method Collection Time Re ceived Time Location / / Volume Laterality 01/06/2013 2:23 PM EDT Narrative 01/06/2013 2:34 PM EDT ? Renal ? (Signed Final 01/06/2013 02 :33 pm) Patient Info ID: ?[id number] ?: ??[birth year] (47 yrs) Name: ?JESSICA Melvin GTZ ?Visit Date: 01/06/2013 02:22 pm Performed By Performed By: ?Hernan GARNER, ??Rozina christianson Attending: ? Veronica GILL, Weston Maloney Referred By: ? FERDINAND MICHAEL MD Service(s) Provided URETRO - Retroperitoneal Complete - 002 [id number] ? [id number] Indications History of kidney stones Comparison Ultrasound: [...] Final 01/06/2013 02:33 pm) Patient Info ID: [id number] : [birth year] (47 yrs ) Name: JESSICA GTZ Visit Date: 01/06 02:22 pm Performed By Performed By: Xoimy Becerra RDMS Attending: Weston [place] MD. Referred By: FERDINAND MICHAEL MD Service(s) Provided URETRO - Retroperitoneal Complete - 002 [id number] Indications History of kidney stones Comparison Ultrasound: [...] kidney documented in this encounter Care Teams Public Health Social Worker Relationship Specialty Start Date End Date None PCP - General 03/06/12 01/05/13 None documented as of this encounter
--- OUTSIDE RECORDS SUMMARY | 2022-05-31 15:11 | XMS_ITS | Encounter Summary ---
:1965 Author Organization [facility] [place] [address] Care Team Providers Name Role Phone None Primary Care Provider Unavailable Reason for Visit Reason Comments Follow-up hormone patch Encounter Details Date Type Department Care Team Description 07/03/2012 Follow-Up Obstetrics and Ramses Birch MD [facility] OBSTETRICS & [place] [address] Perimenopause (Primary Dx); Gynecology at [facility] Destiney Gomes MD [facility] OBSTETRICS & [place] [address] [place] [address] Social History Tobacco Use Types Packs/Day [...] Surgical History Procedure Date ??? Created by Runnit EFamilia(MSUROL) Procedure Date: 01/16/2008 ??? Lithotripsy Current outpatient [...] ??? SERTRALINE HCL (SERTRALINE ORAL) ??? Evening [place] Oil 500 mg Cap ??? albuterol (ACCUNEB) [...] ?? 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 If bleeding persists at irregular intervals, likely perimenopausal, but consider repeat TVUS at that time to help r/o endometrial pathology. DESTINEY GOMES MD Obgyn PGY4. documented in this encounter Plan of Treatment Upcoming Encounters Date Type Specialty Care Team Description 07/13/2022 Appointment Radiology Maile Hinojosa MD [facility] DR [place], [place] [address] (Wo rk) 07/13/2022 Office Visit Endocrinology Maile Hinojosa MD [facility] ER ENDOCRINOLOGY [place], [place] [address] (Wo rk) 07/25/2022 Office Visit Pulmonology Tong Norman MD [facility] Pulmonary Medici [place], [place] [address] (Wo rk) documented as of this encounter Visit Diagnoses Diagnosis Perimenopause - Primary Symptomatic menopausal or female climact [place] Vulvar discomfort Other vulvodynia documented in this encounter Care Teams Manager Surgery Relationship Specialty Start Date End Date None PCP - General 03/06/12 01/05/13 None documented as of this encounter
--- OUTSIDE RECORDS SUMMARY | 2022-05-31 15:11 | XMS_ITS | Encounter Summary ---
:1965 Author Organization [facility] [place] [address] Care Team Providers Name Role Phone Janet Davey SACHA Primary Care Provider Reason for Visit Reason Comments Medication Refill Encounter Details Date Type Department Care Team Description 01/02/2014 Refill Obstetrics and Gynecology at Jaqueline bravo, Genoveva Bobo MD [facility] [place] [address] [place] [address] [phone] Social History Tobacco Use Types Packs/Day Years [...] Hinojosa MD [facility] ER DR MARMOLEJO [place], [place] [address] (Wo rk) 07/13/2022 Office Visit Endocrinology Maile Hinojosa MD [facility] ENDOCRINOLOGY [place], [place] [address] (Wo rk) 07/25/2022 Office Visit Pulmonology Tong Norman MD [facility] Pulmonary Medici [place], [place] [address] (Wo rk) documented as of this encounter Visit Diagnoses Not on filedocumented in this encounter Care Teams Research Coordinator Relationship Specialty Start Date End Date Janet Davey, REINFORCED IRONWORKER PCP - General Family Medicine 07/13/20 [address] [place] [address] documented as of this encounter
--- OUTSIDE RECORDS SUMMARY | 2022-05-31 15:11 | XMS_ITS | Encounter Summary ---
:1965 Author Organization [facility] [place] [address] Care Team Providers Name Role Phone Monica Garcia MD Primary Care Provider Encounter Details Date Type Department Care Team Description 01/09/2013 Orders Only Endocrinology at [facility] C Jennifer Romero, Osteoporosis (Primary [facility] Dx) [place] [address] [phone] ENDOCRINOLOGY [place]PT [place], [place] [address] Social History Tobacco Use Types [...] Maile Hinojosa MD [facility] ER ENDOCRINOLOGY [place], [place] [address] (Wo rk) 07/13/2022 Office Visit Endocrinology Maile Hinojosa MD [facility] ENDOCRINOLOGY [place], [place] [address] (Wo rk) 07/25/2022 Office Visit Pulmonology Tong Norman MD [facility] Pulmonary Medici ne [place], [place] [address] (Wo rk) documented as of this encounter Visit Diagnoses Diagnosis Osteoporosis - Primary Osteoporosis, unspecified documented in this encounter Care Teams Defective Cigarette Slitter Relationship Specialty Start Date End Date Monica Garcia MD PCP - General 01/06/13 02/27/17 [address] [place] [address] documented as of this encounter
--- OUTSIDE RECORDS SUMMARY | 2022-05-31 15:11 | XMS_ITS | Encounter Summary ---
:1965 Author Organization [facility] [place] [address] Care Team Providers Name Role Phone Monica Garcia MD Primary Care Provider Encounter Details Date Type Department Care Team Description 02/16/2013 Hospital Encounter Laboratory CLINIC, DR CONV Osteoporosis [facility] Jennifer Romero MD [facility] [place] [address] [place] [address] Social History Tobacco Use Types Packs/Day [...] 0.63 0 08/24/2010 mg/3 mL nebulizer solution CLIMARA PRO 0.045-0.015 apply 1 patch every [...] HCL (SERTRALINE 0 0 03/31/2013 ORAL) Evening [place] Oil 500 0 08/24/2010 01/24/2015 mg Cap [...] 07/13/2022 Appointment Radiology Maile Hinojosa MD [facility] ENDOCRINOLOGY [place], [place] [address] (Wo rk) 07/13/2022 Office Visit Endocrinology Maile Hinojosa MD [facility] ENDOCRINOLOGY [place], [place] [address] (Wo rk) 07/25/2022 Office Visit Pulmonology Tong Norman MD [facility] Pulmonary Medici ne [place], [place] [address] (Wo rk) documented as of this encounter Procedures Procedure Name Priority Date/Time Associated Diagnosis Comme nts DXA CENTRAL SPINE, Routine 02/16/2013 1:10 PM Osteoporosis, Re sults for this HIP, AND/OR WHOLE EDT unspecified procedure are in BODY (GENERIC) the results section. documented in this encounter Results Dexa central-spine, hip, and/or whole body (02/16/2013 1:10 PM EDT) Anatomical Region Laterality Modality C-spine, Hip N/A Radiographic Imaging Specimen (Source) Anatomical Collection Method Collection Time Re ceived Time Location / / Volume Laterality 02/16/2013 1:10 PM EDT Narrative 02/19/2013 3:31 PM EDT Examination DXA CENTRAL-SPINE,HIP, AND/OR WHOLE BODY Clinical History osteoporosis LAST DEXA 02/13/11 Technique Scans were acquired at the lumbar spine, left hip, . Findings Lowest T-score at a diagnostic region of interest: T-score: -2.5,TENZIN: Femoral neck, WHO lux gnosis: Osteoporosis ??................COMPARISON........... ............ Recent scan: 2010 Total Hip: Compared to the most recent scan, no si gnificant change. ?? Total spine: ??Compared to the most recent scan, no significant change. ?? Impression The measurements fulfill the WHO classif ication for osteoporosis and there is no significant change. The fracture risk s are increased. _ Estimating Fracture Risk: The relationship between bone [...] This is available through an interactive web-based Bi[employer]agents[employer] ce (http://www.shef.ac.uk/FRAX/) and can be used to [...] measurements a nd plots are available in E-ImpulseSave under the imaging tab. Paper copies will be sent to providers without E-DH access. If you have received this report without the data sheet and do not have access to ESL Pathology [employer] [place], please contact Radiology [facility] at [phone] Saturday thru Saturday 8am-4pm. Procedure Note Simin Preston MD - 02/19/2013Formatt ing of this note might be different from the original. Examination DXA CENTRAL-SPINE,HIP, AND/OR WHOLE BODY Clinical History osteoporosis LAST DEXA 02/13/11 Technique Scans were acquired at the lumbar spine, left hip, . Findings Lowest T-score at a diagnostic region of interest: T-score: -2.5,TENZIN: Femoral neck, WHO lux gnosis: Osteoporosis ................COMPARISON............. .......... Recent scan: 2010 Total Hip: Compared to the most recent scan, no si gnificant change. Total spine: Compared to the most recent scan, no si gnificant change. Impression The measurements fulfill the WHO classif ication for osteoporosis and there is no significant change. The fracture risk s are increased. _ Estimating Fracture Risk: The relationship between bone [...] measurements a nd plots are available in E-ImpulseSave under the imaging tab. Paper copies will be sent to providers without E-ImpulseSave access. If you have received this report without the data sheet and do not have access to E-ImpulseSave, please contact Radiology [facility] at [phone] Saturday thru Saturday 8am-4pm. Cuate Hall MD IMG DEXA ORDERABLES documented in this encounter Visit Diagnoses Diagnosis Osteoporosis Osteoporosis, unspecified documented in this encounter Care Teams Electrical Supervisor Relationship Specialty Start Date End Date Monica Garcia MD PCP - General 01/06/13 02/27/17 [address] [place] [address] documented as of this encounter
--- OUTSIDE RECORDS SUMMARY | 2022-05-31 15:11 | XMS_ITS | Encounter Summary ---
:1965 Author Organization [facility] [place] [address] Care Team Providers Name Role Phone Monica Garcia MD Primary Care Provider Reason for Visit Reason Comments Follow-up US Menstrual Problem 5 week period last month cur rently on period today Encounter Details Date Type Department Care Team Description 08/09/2011 Follow-Up Obstetrics and Bobby Diamond Ovarian cyst (Primary Dx); Gy[place]cology at [facility] [place] Victor Manuel Abnormal bleeding in menstrual cycle [facility] [place] [address] OBSTETRICS & [phone] GYNECOLOGY [place], [place] [address] (Wo rk) Social History Tobacco [...] improved since Combipatch. She also takes Evening Robbins everyday to help with cramping and evening out her periods. 07/31/2011 encounter Luis Michael Jr., MD Signed Luis Michael Jr., MD 07/31/11 06:[address] reviewed, no stones seen. Left ovarian or paraovarian cyst noted. I recommended that she see herGYN for further discussion and/or eval. She understands and will plan to call [facility] tomorrow. No urologic intervention needed at this [...] History Procedure Date ??? Created by interface [employer]S.W[employer]) Procedure Date: 01/16/2008 ??? Lithotripsy Family History [...] Maile Hinojosa MD [facility] ENDOCRINOLOGY [place], [place] [address] (Wo rk) 07/13/2022 Office Visit Endocrinology Maile Hinojosa MD [facility] DR MARMOLEJO [place], [place] [address] (Wo rk) 07/25/2022 Office Visit Pulmonology Tong Norman MD [facility] Pulmonary Medici ne [place], [place] [address] ([facility]) documented as of this encounter Results US Transvaginal non OB (10/04/2011 4:01 PM EST) Anatomical Region Laterality Modality Ultrasound Specimen (Source) Anatomical Collection Method Collection Time Re ceived Time Location / / Volume Laterality 10/04/2011 4:01 PM EST Narrative 10/04/2011 4:09 PM EST ?Gynecological Report ? (Signed Final 10/04/2011 04 :08 pm) Patient Info ID: ? [id number] ? : ??[birth year] (46 yrs) Name: ? JESSICA Charles TRESA ? Visit Date: 10/04/2011 03:50 pm Performed By Performed By: ?Lya Nichols RDMS Attending: ? Marcus Rush, Michelle Referred By: ? BOBBY Rush Service(s) Provided [facility] - Ultrasound - Transvaginal - [phone] ? [id number] Indications Reason for exam and clinical history: [...] ??viewed the images and agree with kristi chritsianson above interpretation. Thank you for allowing us to participat e in the care of JESSICA GTZ. Please do not hesitate to call if you have any questions. ? Michelle middleton MD Electronically Signed Final Report ?? 04:08 pm Procedure Note Michelle Walsh MD - 012 Gynecological Report (Signed Final 10/04/2011 04:08 pm) Patient Info ID: [id number] : [birth year] (46 yrs ) Name: JESSICA GTZ Visit Date: 10/04 03:50 pm Performed By Performed By: Lay Nichols RDMS Attending: Marcus Hill MD, Michelle Referred By: BOBBY DIAMOND MD Service(s) Provided [facility] - Ultrasound - Transvaginal - [phone] [id number] Indications Reason for exam and clinical history: [...] cyst documented in this encounter Care Teams Pitch Worker Relationship Specialty Start Date End Date Monica Garcia MD PCP - General 07/18/10 03/05/12 [address] [place] [address] documented as of this encounter
--- OUTSIDE RECORDS SUMMARY | 2022-05-31 15:11 | XMS_ITS | Encounter Summary ---
:1965 Author Organization [facility] [place] [address] Care Team Providers Name Role Phone None Primary Care Provider Unavailable Encounter Details Date Type Department Care Team Description 07/08/2012 Hospital Encounter Ultrasound at [facility] [place] [place] [address] Social History Tobacco Use Types Packs/Day [...] HCL (SERTRALINE 0 0 03/31/2013 ORAL) Evening [place] Oil 500 0 08/24/2010 01/24/2015 mg Cap [...] 07/13/2022 Appointment Radiology Maile Hinojosa MD [facility] ENDOCRINOLOGY [place], [place] [address] (Wo rk) 07/13/2022 Office Visit Endocrinology Maile Hinojosa MD [facility] ENDOCRINOLOGY [place], [place] [address] (Wo rk) 07/25/2022 Office Visit Pulmonology Tong Norman MD [facility] Pulmonary Medici ne [place], [place] [address] (Wo rk) documented as of [...] 05 :16 pm) Patient Info ID: ? [id number] ? : ??[birth year] (46 yrs) Name: ? JESSICA GTZ ? Visit Date: 07/08/2012 03:45 pm Performed By Performed By: ?Shane Burcaiga RDMS Attending: ? Noman GILL, Rose Narayan Referred By: ? FERDINAND MICHAEL MD Service(s) Provided URETRO - Retroperitoneal Complete - 002 [id number] ? [id number] Indications History of kidney stones Right Kidney [...] Final 07/08/2012 05:16 pm) Patient Info ID: [id number] : 61 (46 yrs ) Name: JESSICA GTZ Visit Date: 07/08 03:45 pm Performed By Performed By: Genie Burciaga RDMS Attending: Rose Tineo MD Referred By: FERDINAND MICHAEL MD Service(s) Provided URETRO - Retroperitoneal Complete - [id number] Indications History of kidney stones Right Kidney [...] kidney documented in this encounter Care Teams Cigarette Carton Sealer Relationship Specialty Start Date End Date None PCP - General 03/06/12 01/05/13 None documented as of this encounter
--- OUTSIDE RECORDS SUMMARY | 2022-05-31 15:11 | XMS_ITS | Encounter Summary ---
:1965 Author Organization [facility] [place] [address] Care Team Providers Name Role Phone Monica Garcia MD Primary Care Provider Encounter Details Date Type Department Care Team Description 08/09/2011 Hospital Encounter Ultrasound at [facility] [place] [address] Social History Tobacco Use Types Packs/Day [...] HCL (SERTRALINE 0 0 03/31/2013 ORAL) Evening [place] Oil 500 0 08/24/2010 01/24/2015 mg Cap [...] MD [facility] ER DR MARMOLEJO [place], [place] [address] (Wo rk) 07/13/2022 Office Visit Endocrinology Maiel Hinojosa MD [facility] MEDICAL CENT ER DR MARMOLEJO [place], [place] [address] (Wo rk) 07/25/2022 Office Visit Pulmonology Tong Norman MD [facility] Medical [facility] Pulmonary Medici [place], [place] [address] (Wo rk) documented as of this encounter Visit Diagnoses Not on filedocumented in this encounter Care Teams Process Improvement Engineer Relationship Specialty Start Date End Date Monica Garcia MD PCP - General 07/18/10 03/05/12 [address] [place] [address] documented as of this encounter
--- OUTSIDE RECORDS SUMMARY | 2022-05-31 15:11 | XMS_ITS | Encounter Summary ---
:1965 Author Organization [facility] [place] [address] Care Team Providers Name Role Phone Monica Garcia MD Primary Care Provider Encounter Details Date Type Department Care Team Description 07/27/[address] Scan at [facility] CLINIC, DR ESPINO Nephrolithiasis [facility] Luis Michael Jr., MD [facility] [place] [address] [place] [address] Social History Tobacco Use Types [...] HCL (SERTRALINE 0 0 03/31/2013 ORAL) Evening [place] Oil 500 0 08/24/2010 01/24/2015 mg Cap [...] MD [facility] MEDICAL [facility] ER ENDOCRINOLOGY [place], [place] [address] (Wo rk) 07/13/2022 Office Visit Endocrinology Maile Hinojosa MD [facility]ICAL [facility] ENDOCRINOLOGY [place], [place] [address] (Wo rk) 07/25/2022 Office Visit Pulmonology Tong Norman MD [facility] Medical Cent er Pulmonary Medici ne [place], [place] [address] (Wo rk) documented as of [...] documented in this encounter Care Teams Senior Receptionist Relationship Specialty Start Date End Date Monica Garcia MD PCP - General 07/18/10 03/05/12 [address] [place] [address] documented as of this encounter
--- OUTSIDE RECORDS SUMMARY | 2022-05-31 15:11 | XMS_ITS | Encounter Summary ---
:1965 Author Organization [facility] [place] [address] Care Team Providers Name Role Phone None Primary Care Provider Unavailable Encounter Details Date Type Department Care Team Description 03/27/2012 Telephone Endocrinology at [facility] Jennifer Pike MD [facility] [place] [address] ENDOCRINOLOGY DEPT [phone] [place], [place] [address] (Wo rk) Social History Tobacco [...] Maile Hinojosa MD [facility] ENDOCRINOLOGY [place], [place] [address] (Wo rk) 07/13/2022 Office Visit Endocrinology Maile Hinojosa MD [facility] DR MARMOLE[address] [place], [place] [address] (Wo rk) 07/25/2022 Office Visit Pulmonology Tong Norman MD [facility] Pulmonary Medici ne [place], [place] [address] (Wo rk) documented as of this encounter Visit Diagnoses Not on filedocumented in this encounter Care Teams Welding Machine Operator Electro Gas Relationship Specialty Start Date End Date None PCP - General 03/06/12 01/05/13 None documented as of this encounter
--- OUTSIDE RECORDS SUMMARY | 2022-05-31 15:11 | XMS_ITS | Encounter Summary ---
:1965 Author Organization [facility] [place] [address] Care Team Providers Name Role Phone Monica Garcia MD Primary Care Provider Encounter Details Date Type Department Care Team Description 01/06/2014 Telephone Obstetrics and Gynecology at Ramses Boyce MD [facility] Victor Manuel cifuentes OBSTETRICS & [place] [address] [place] [address] [phone] Social History Tobacco Use Types Packs/Day Years [...] MD [facility] DR MARMOLEJO [place], [place] [address] (Wo rk) 07/13/2022 Office Visit Endocrinology Maile Hinojosa MD [facility] DR MARMOLE[place], [place] [address] (Wo rk) 07/25/2022 Office Visit Pulmonology Tong Norman MD [facility] Pulmonary Medici [place], [place] [address] (Wo rk) documented as of this encounter Visit Diagnoses Not on filedocumented in this encounter Care Teams Geophysical Manager Relationship Specialty Start Date End Date Monica Garcia MD PCP - General 01/06/13 02/27/17 [address] [place] [address] documented as of this encounter
--- OUTSIDE RECORDS SUMMARY | 2022-05-31 15:11 | XMS_ITS | Encounter Summary ---
:1965 Author Organization [place] [address] Care Team Providers Name Role Phone Monica Garcia MD Primary Care Provider Reason for Visit Reason Onset Date Comments Medication Refill 04/23/2014 Encounter Details Date Type Department Care Team Description 04/23/2014 Refill Obstetrics [place] [address] Social History Tobacco Use Types Packs/Day [...] Maile Hinojosa MD [facility] ER ENDOCRINOLOGY [place], [place] [address] (Wo rk) 07/13/2022 Office Visit Endocrinology Maile Hinojosa MD [facility] MEDICAL [facility] ER ENDOCRINOLOGY [place], [place] [address] (Wo rk) 07/25/2022 Office Visit Pulmonology Tong Norman MD [facility] Medical [facility] er Pulmonary Medici ne [place], [place] [address] (Wo rk) documented as of this encounter Visit Diagnoses Not on filedocumented in this encounter Care Teams Shop Superintendent Relationship Specialty Start Date End Date Monica Garcia MD PCP - General 01/06/13 02/27/17 [address] [place] [address] documented as of this encounter
--- OUTSIDE RECORDS SUMMARY | 2022-05-31 15:11 | XMS_ITS | Encounter Summary ---
:1965 Author Organization [facility] [place] [address] Care Team Providers Name Role Phone Monica Garcia MD Primary Care Provider Reason for Visit Reason Comments Medication Refill Encounter Details Date Type Department Care Team Description 01/17/2013 Refill Obstetrics and Gynecology at Genoveva Larkin MD [facility] Victor Manuel cifuentes OBSTETRICS & [place] [address] [place] [address] [phone] (Wo rk) Social History Tobacco Use Types [...] Description 07/13/2022 Appointment Radiology Maile Hinojosa MD [facility] ER ENDOCRINOLOGY [place], [place] [address] (Wo rk) 07/13/2022 Office Visit Endocrinology Maile Hinojosa MD [facility] ENDOCRINOLOGY [place], [place] 0[address] (Wo rk) 07/25/2022 Office Visit Pulmonology Tong Norman MD [facility] Pulmonary Medici [place], [place] [address] (Wo rk) documented as of this encounter Visit Diagnoses Not on filedocumented in this encounter Care Teams Distribution Supervisor Relationship Specialty Start Date End Date Monica Garcia MD PCP - General 01/06/13 02/27/17 [address] [place] [address] documented as of this encounter
--- OUTSIDE RECORDS SUMMARY | 2022-05-31 15:11 | XMS_ITS | Encounter Summary ---
:1965 Author Organization [facility] [place] [address] Care Team Providers Name Role Phone Janet Davey Isa GONCALVES Primary Care Provider Reason for Visit Reason Comments Medication Refill Encounter Details Date Type Department Care Team Description 04/11/2014 Refill Obstetrics and Gynecology at Ramses Boyce MD [facility] Victor Manuel cifuentes OBSTETRICS & [place] [address] [place] [address] [phone] Social History Tobacco Use Types Packs/Day Years [...] MD [facility] ER ENDOCRINOLOGY [place], [place] [address] (Wo rk) 07/13/2022 Office Visit Endocrinology Maile Hinojosa MD [facility] ER ENDOCRINOLOGY [place], [place] [address] (Wo rk) 07/25/2022 Office Visit Pulmonology Tong Norman MD [facility] Pulmonary Medici ne [place], [place] 0375 (Wo rk) documented as of this encounter Visit Diagnoses Not on filedocumented in this encounter Care Teams Athletics Director Relationship Specialty Start Date End Date Janet Davey, DRYER AND WASHER MECHANIC PCP - General Family Medicine 07/13/20 [address] [place] [address] documented as of this encounter
--- OUTSIDE RECORDS SUMMARY | 2022-05-31 15:11 | XMS_ITS | Encounter Summary ---
:1965 Author Organization [facility] [place] [address] Care Team Providers Name Role Phone Monica Garcia MD Primary Care Provider Reason for Visit Reason Comments Nephrolithiasis Encounter Details Date Type Department Care Team Description 02/23/2014 Follow-Up Urology at [facility], DR ESPINO History of urinary [facility] Luis Michael Jr., MD [facility] [place] [address] stone (Primary Dx) [place] [address] Social History Tobacco Use Types Packs/Day [...] MD [facility] DR MARMOLEJO [place], [place] [address] (Wo rk) 07/13/2022 Office Visit Endocrinology Maile Hinojosa MD [facility] DR MARMOLEJO [place], [place] [address] (Wo rk) 07/25/2022 Office Visit Pulmonology Tong Norman MD [facility] Pulmonary Medici ne [place], [place] [address] (Wo rk) documented as of this encounter Visit Diagnoses Diagnosis History of urinary stone - Primary Personal history of urinary calculi documented in this encounter Care Teams Counsellors Relationship Specialty Start Date End Date Monica Garcia MD PCP - General 01/06/13 02/27/17 [address] [place] [address] documented as of this encounter
--- OUTSIDE RECORDS SUMMARY | 2022-05-31 15:11 | XMS_ITS | Encounter Summary ---
:1965 Author Organization [facility] [place] [address] Care Team Providers Name Role Phone Monica Garcia MD Primary Care Provider Encounter Details Date Type Department Care Team Description 06/10/2014 Orders Only Mammography at [facility] Weston Figueroa, Inconclusive mammogram [facility] (Primary [place]x) [place] [address] DIAGNOSTIC RADIOLOGY [place] [address] Social History Tobacco Use Types Packs/Day Years [...] MD [facility] ER ENDOCRINOLOGY [place], [place] 0[address] (Wo rk) 07/13/2022 Office Visit Endocrinology Maile Hinojosa MD [facility] ER ENDOCRINOLOGY [place], [place] [address] (Wo rk) 07/25/2022 Office Visit Pulmonology Tong Norman MD [facility] er Pulmonary Medici [place] [id number] (Wo rk) documented as of this encounter [...] mammogram documented in this encounter Care Teams Aluminum Can Collector Relationship Specialty Start Date End Date Monica Garcia MD PCP - General 01/06/13 02/27/17 [address] [place] [address] documented as of this encounter
--- OUTSIDE RECORDS SUMMARY | 2022-05-31 15:11 | XMS_ITS | Encounter Summary ---
:1965 Author Organization [place] [address] Care Team Providers Name Role Phone Monica Garcia MD Primary Care Provider Encounter Details Date Type Department Care Team Description 01/06/2013 Hospital Encounter Ultrasound at [facility] [place] [address] Social History Tobacco Use Types Packs/Day [...] HCL (SERTRALINE 0 0 03/31/2013 ORAL) Evening [place] Oil 500 0 08/24/2010 01/24/2015 mg Cap [...] Hinojosa MD [facility] ENDOCRINOLOGY [place], [place] [address] (Wo rk) 07/13/2022 Office Visit Endocrinology Maile Hinojosa MD [facility] ENDOCRINOLOGY [place], [place] [address] (Wo rk) 07/25/2022 Office Visit Pulmonology Tong Norman MD [facility] Pulmonary Medici ne [place], [place] [address] (Wo rk) documented as of [...] 01/06/2013 02 :33 pm) Patient Info ID: ?[id number] ?: ??[birth year] (47 yrs) Name: ?JESSICA Melvin GTZ ?Visit Date: 01/06/2013 02:22 pm Performed By Performed By: ?Hernan GARNER, ??Rozina christianson Attending: ? Veronica GILL, [place] Maloney Referred By: ? FERDINAND MICHAEL MD Service(s) Provided URETRO - Retroperitoneal Complete - 002 [id number] ? [id number] Indications History of kidney stones Comparison Ultrasound: [...] Final 01/06/2013 02:33 pm) Patient Info ID: [id number] : [birth year] (47 yrs ) Name: JESSICA GTZ Visit Date: 01/06 02:22 pm Performed By Performed By: Xiomy Becerra RDMS Attending: [place] MD Referred By: FERDINAND MICHAEL MD Service(s) Provided URETRO - Retroperitoneal Complete - 002 [id number] Indications History of kidney stones Comparison Ultrasound: [...] documented in this encounter Care Teams Grease Man Relationship Specialty Start Date End Date Monica Garcia MD PCP - General 01/06/13 02/27/17 [address] [place] [address] documented as of this encounter
--- OUTSIDE RECORDS SUMMARY | 2022-05-31 15:11 | XMS_ITS | Encounter Summary ---
:1965 Author Organization [facility] Address [facility] [place] [address] Care Team Providers Name Role Phone Monica Garcia MD Primary Care Provider Reason for Visit Reason Comments Gynecologic Exam last pap 03/06/12 infection o r repair Encounter Details Date Type Department Care Team Description 04/24/2013 Office Visit Obstetrics and Ramses Birch MD Encounter for annual health examination (Primary Dx); Gynecology at [facility] Well woman exam with routine gynecological exam [facility] DR Camacho OBSTETRICS & [place], [place] GYNECOLOGY [address] [place] [address] [phone] Social History Tobacco Use Types Packs/Day Years [...] 9:37 AM EDT Annual Visit Stacy Albright [id number] 04/24/2013 MONICA GARCIA MD Reason for Visit: Stacy is a 47 y.o. 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 She also presents with the following [...] age Bone Density: Being managed by her Surveyor Geophysical Prospecting, not due at this time OB History [...] a normal pubic hair distribution. The Bartholin'sand Lofall's glands are unremarkable. The urethra is without [...] Description 07/13/2022 Appointment Radiology Maile Hinojosa MD [facility] MEDICAL [facility] DR [place]ALE[place] [address] (Wo rk) 07/13/2022 Office Visit Endocrinology Maile Hinojosa MD [facility] ENDOCRINOLOGY [place], [place] [address] (Wo rk) 07/25/2022 Office Visit Pulmonology Tong Norman MD [facility] Medical [facility] er Pulmonary Medici [place], [place] [address] (Wo rk) documented as of this encounter Visit Diagnoses Diagnosis Encounter for annual health examination - Primary Routine general medical examination at a health care facility Well woman exam with routine gynecologic al exam Routine gynecological examination documented in this encounter Care Teams Infection Control Specialist Relationship Specialty Start Date End Date Monica Garcia MD PCP - General 01/06/13 02/27/17 [address] [place] [address] documented as of this encounter
--- OUTSIDE RECORDS SUMMARY | 2022-05-31 15:11 | XMS_ITS | Encounter Summary ---
:1965 Author Organization [facility] [address] Care Team Providers Name Role Phone Monica Garcia MD Primary Care Provider Encounter Details Date Type Department Care Team Description 06/18/2014 Hospital Encounter Mammography at [facility], DR KENZIE Dos Santos [facility] Monica Garcia MD [address] [place] [address] [place] [address] Social History Tobacco Use Types [...] inhaler daily as needed (winter time). Evening [place] Oil 500 0 08/24/2010 01/24/2015 mg Cap [...] Appointment Radiology Maile Hinojosa MD [facility] ER ENDOCRINOLOGY [place], [place] [address] (Wo rk) 07/13/2022 Office Visit Endocrinology Maile Hinojosa MD [facility] ER ENDOCRINOLOGY [place], [place] [address] (Wo rk) 07/25/2022 Office Visit Pulmonology Tong Norman MD [facility] Pulmonary Medici [place], [place] Freddy (Wo rk) documented as of [...] mammogram documented in this encounter Care Teams Patrol Inspector Relationship Specialty Start Date End Date Monica Garcia MD PCP - General 01/06/13 02/27/17 [address] [place] [address] documented as of this encounter
--- OUTSIDE RECORDS SUMMARY | 2022-05-31 15:11 | XMS_ITS | Encounter Summary ---
:1965 Author Organization [place] [address] Care Team Providers Name Role Phone Monica Garcia MD Primary Care Provider Reason for Visit Reason Comments Ovarian Cyst Encounter Details Date Type Department Care Team Description 10/04/2011 Office Visit Obstetrics and [place], Ovarian cystic mass Gynecology at [facility] Michelle Curry MD (Primary Dx) [facility] DR [place], [place] OBSTETRICS & [address] GYNECOLOGY [phone] [place], [place] [address] (Wo rk) Social History Tobacco [...] Hinojosa MD [facility] ENDOCRINOLOGY [place], [place] [address] (Wo rk) 07/13/2022 Office Visit Endocrinology Maile Hinojosa MD [facility] DR MARMOLEJO [place], [place] [address] (Wo rk) 07/25/2022 Office Visit Pulmonology Tong Norman MD [facility] Pulmonary Medici [place], [place] [address] (Wo rk) documented as of this encounter Visit Diagnoses Diagnosis Ovarian cystic mass - Primary Other and unspecified ovarian cyst documented in this encounter Care Teams Mobile Home Set Up Person Relationship Specialty Start Date End Date Monica Garcia MD PCP - General 07/18/10 03/05/12 [address] [place] [address] documented as of this encounter
--- OUTSIDE RECORDS SUMMARY | 2022-05-31 15:11 | XMS_ITS | Encounter Summary ---
:1965 Author Organization [facility] [address] Care Team Providers Name Role Phone Monica Garcia MD Primary Care Provider Reason for Visit Reason Comments Nephrolithiasis Encounter Details Date Type Department Care Team Description 01/08/2012 Follow-Up Urology at [facility], DR ESPINO Nephrolithiasis (Primary [facility] Ferdinand Michael Jr., MD [facility] [place] [address] Dx) [place] [address] Social History Tobacco Use Types Packs/Day Years [...] MsJoseph Gtz returns for follow up regarding her [...] Radiology Maile Hinojosa MD [facility] ENDOCRINOLOGY [place], [place] [address] (Rahul ascencio) 07/13/2022 Office Visit Endocrinology Maile Hinojosa MD [facility] DR MARMOLEJO [place], [place] [address] (Rahul ascencio) 07/25/2022 Office Visit Pulmonology Tong Norman MD [facility] Pulmonary Medici ne [place], [place] [address] (Rahul ascencio) documented as of this encounter Results US retroperitoneal complete (07/08/2012 3:49 PM EST) Anatomical Region Laterality Modality Abdomen Ultrasound Specimen (Source) Anatomical Collection Method Collection Time Re ceived Time Location / / Volume Laterality 07/08/2012 3:49 PM EST Narrative 07/08/2012 5:17 PM EST ? Renal ? (Signed Final 07/08/2012 05 :16 pm) Patient Info ID: ? [id number] ? : [birth year] (46 yrs) Name: ? JESSICAKATIE GTZ ? Visit Date: 07/08/2012 03:45 pm Performed By Performed By: ?Shane Burciaga RDMS Attending: ? Noman GILL, Rose Narayan Referred By: ? FERDINAND MICHAEL MD Service(s) Provided URETRO - Retroperitoneal Complete - 002 [id number] ? [id number] Indications History of kidney stones Right Kidney [...] Final 07/08/2012 05:16 pm) Patient Info ID: [id number] : [birth year] (46 yrs ) Name: JESSICA GTZ Visit Date: 07/08 03:45 pm Performed By Performed By: Genie Burciaga RDMS Attending: Rose Tineo MD. Referred By: FERDINAND MICHAEL MD Service(s) Provided URETRO - Retroperitoneal Complete - 002 [id number] Indications History of kidney stones Right Kidney [...] kidney documented in this encounter Care Teams Medical Clinic Manager Relationship Specialty Start Date End Date Monica Garcia MD PCP - General 07/18/10 03/05/12 [address] [place] [address] documented as of this encounter
--- OUTSIDE RECORDS SUMMARY | 2022-05-31 15:11 | XMS_ITS | Encounter Summary ---
:1965 Author Organization [facility] [place] [address] Care Team Providers Name Role Phone Monica Garcia MD Primary Care Provider Reason for Visit Reason Comments Follow-up Encounter Details Date Type Department Care Team Description 01/06/2013 Follow-Up Urology at [facility], DR ESPINO Urolithiasis (Primary [facility] Luis Michael Jr., MD [facility] DR UROLOGY DEPT. [place] [id number] Dx) [place] [address] Social History Tobacco Use Types Packs/Day [...] Hinojosa MD [facility] ENDOCRINOLOGY [place], [place] [address] (Wo rk) 07/13/2022 Office Visit Endocrinology Maile Hinojosa MD [facility] DR MARMOLEJO [place], [place] [address] (Wo rk) 07/25/2022 Office Visit Pulmonology Tong Norman MD [facility] Pulmonary Medici ne [place], [place] [address] (Wo rk) documented as of this encounter Visit Diagnoses Diagnosis Urolithiasis - Primary Urinary calculus, unspecified documented in this encounter Care Teams Agile Project Manager Relationship Specialty Start Date End Date Monica Garcia MD PCP - General 01/06/13 02/27/17 [address] [place] [address] documented as of this encounter
--- OUTSIDE RECORDS SUMMARY | 2022-05-31 15:11 | XMS_ITS | Encounter Summary ---
:1965 Author Organization [facility] [place] [address] Care Team Providers Name Role Phone Monica Garcia MD Primary Care Provider Encounter Details Date Type Department Care Team Description 12/01/2013 Orders Only Urology at [facility] Ferdinand Michael Kidney stones (Primary [facility] MD Jules Dx) [place] [address] UROLOGY DEPT. [place], [place] [address] Social History Tobacco Use Types [...] Radiology Maile Hinojosa MD [facility] ER ENDOCRINOLOGY [place], [place] [address] ( rk) 07/13/2022 Office Visit Endocrinology Maile Hinojosa MD [facility] ENDOCRINOLOGY [place], [place] [address] ([facility]) 07/25/2022 Office Visit Pulmonology Tong Norman MD [facility] Pulmonary Medici ne [place], [place] [address] ([facility]) documented as of this encounter Results US retroperitoneal complete (02/23/2014 4:21 PM EDT) Anatomical Region Laterality Modality Abdomen Ultrasound Specimen (Source) Anatomical Collection Method Collection Time Re ceived Time Location / / Volume Laterality 02/23/2014 4:21 PM EDT Narrative 02/23/2014 5:21 PM EDT ? Renal ?(Signed Final 02/23/2014 05:20 pm) Patient Info ID: ?[id number] ?: ??[birth year] (48 yrs) Name: ?JESSICA GTZ ?Visit Date: 02/23/2014 04:19 pm Performed By Performed By: ?Mariann Leonard RDMS Associate: ? Jabari GILL, Bobby Alvarez Attending: ? Genie Carrasco MD Referred By: ? FERDINAND MICHAEL MD Service(s) Provided URETRO - Retroperitoneal Complete - 002 [id number] ? [id number] Indications Hx of kidney stones Comparison Renal/bladder [...] Final 02/23/2014 05:20 pm) Patient Info ID: [id number] : [birth year] (48 yrs ) Name: JESSICA GTZ Visit Date: 02/23 04:19 pm Performed By Performed By: Mariann Leonard RDMS Associate: Bobby Barboza MD Attending: Genie Carrasco MD Referred By: FERDINAND MICHAEL MD Service(s) Provided URETRO - Retroperitoneal Complete - [id number] Indications Hx of kidney stones Comparison Renal/bladder [...] kidney documented in this encounter Care Teams Supervisor Testing Relationship Specialty Start Date End Date Monica Garcia MD PCP - General 01/06/13 02/27/17 [address] [place] [address] documented as of this encounter
--- OUTSIDE RECORDS SUMMARY | 2022-05-31 15:11 | XMS_ITS | Encounter Summary ---
:1965 Author Organization [place] [address] Care Team Providers Name Role Phone Monica Garcia MD Primary Care Provider Encounter Details Date Type Department Care Team Description 08/07/2011 Orders Only Obstetrics and Bobby Diamond Ovarian cyst (Primary Gynecology at [facility] MD Victor Manuel Dx) Counts include [address] beds at [facility] [place] [address] OBSTETRICS & [phone] GYNECOLOGY [place], [place] [address] Social History Tobacco Use Types [...] Maile Hinojosa MD [facility] DR [place], [place] [address] (Wo rk) 07/13/2022 Office Visit Endocrinology Maile Hinojosa MD [facility] ER ENDOCRINOLOGY [place], [place] 0[address] (Wo rk) 07/25/2022 Office Visit Pulmonology Tong Norman MD [facility] Pulmonary Medici ne [place], [place] [address] (Wo rk) documented as of this encounter Visit Diagnoses Diagnosis Ovarian cyst - Primary Other and unspecified ovarian cyst documented in this encounter Care Teams Signing Teacher Relationship Specialty Start Date End Date Monica Garcia MD PCP - General 07/18/10 03/05/12 [address] [place] [address] documented as of this encounter
--- OUTSIDE RECORDS SUMMARY | 2022-05-31 15:11 | XMS_ITS | Encounter Summary ---
:1965 Author Organization [facility] [place] [address] Care Team Providers Name Role Phone Monica Garcia MD Primary Care Provider Reason for Visit Reason Onset Date Comments Results 07/31/2011 Encounter Details Date Type Department Care Team Description 07/31/2011 Telephone Urology at [facility] Luis Michael Jr., MD Results [facility] [place] [address] UROLOGY DEPT. [phone] [place], [place] [address] (Wo rk) Social History Tobacco [...] noted. I recommended that she see her RAILROAD DINING CAR STEWARDESS for further discussion and/or eval. She understands and will plan to call RAILROAD DINING CAR STEWARDESS tomorrow. No urologic intervention needed at this time. documented in this encounter Plan of Treatment Upcoming Encounters Date Type Specialty Care Team Description 07/13/2022 Appointment Radiology Maile Hinojosa MD [facility] ENDOCRINOLOGY [place], [place] [address] (Wo rk) 07/13/2022 Office Visit Endocrinology aMile Hinojosa MD [facility] DR MARMOLEJO [place], [place] [address] (Wo rk) 07/25/2022 Office Visit Pulmonology Tong Norman MD [facility] Pulmonary Medici [place], [place] [address] (Wo rk) documented as of this encounter Visit Diagnoses Not on filedocumented in this encounter Care Teams Bladder Cleaner Relationship Specialty Start Date End Date Monica Garcia MD PCP - General 07/18/10 03/05/12 [address] [place] [address] documented as of this encounter
--- OUTSIDE RECORDS SUMMARY | 2022-05-31 15:12 | XMS_ITS | Encounter Summary ---
:1965 Author Organization [facility] [place] [address] Care Team Providers Name Role Phone Monica Garcia MD Primary Care Provider Reason for Visit Reason Comments Post Op Encounter Details Date Type Department Care Team Description 12/07/2010 [place] [facility] [place]tna Waddell Nephrolithiasis (Primary [facility] [address] [place] [place] [address] UROLOGY DEPT. [phone] [place], [place] [address] Social History Tobacco Use Types [...] Hinojosa MD [facility] ENDOCRINOLOGY [place], [place] 0[address] (Wo rk) 07/13/2022 Office Visit Endocrinology Maile Hinojosa MD [facility] ENDOCRINOLOGY [place], [place] [address] (Wo rk) 07/25/2022 Office Visit Pulmonology Tong Norman MD [facility] Pulmonary Medici ne [place], [place] 0[address] (Wo rk) documented as of this encounter Results US retroperitoneal complete (07/09/2011 1:31 PM EST) Anatomical Region Laterality Modality Abdomen Ultrasound Specimen (Source) Anatomical Collection Method Collection Time Re ceived Time Location / / Volume Laterality 07/09/2011 1:31 PM EST Narrative 07/09/2011 1:47 PM EST ? Renal Rep ort ? (Signed Final 07/09/2011 01 :47 pm) Patient Info ID: ? [id number] ? : [birth year] (45 yrs) Name: ? JESSICA GTZ ? Visit Date: 07/09/2011 01:28 pm Performed By Performed By: ?Daphne Menjivar RDMS Associate: ? Luciano GILL, Sumanth Ruiz Attending: ? Luna GILL, Genie Ruiz Referred By: ? CIERA ARMENDARIZ Accession#: ?[id number] Service(s) Provided URETRO - Retroperitoneal Complete - 002 [id number] ? [id number] Indications H/o nephrolithiasis, assess for new sto [...] Final 07/09/2011 01:47 pm) Patient Info ID: [id number] : [birth year] (45 yrs ) Name: JESSICA GTZ Visit Date: 07/09 01:28 pm Performed By Performed By: Daphne Menjivar RDMS Associate: Sumanth Wolf MD Attending: Genie Carrasco MD Referred By: CIERA PATTERSONP Service(s) Provided URETRO - Retroperitoneal Complete - 002 [id number] Indications H/o nephrolithiasis, assess for new sto [...] kidney documented in this encounter Care Teams Mainspring Torque Tester Relationship Specialty Start Date End Date Monica Garcia MD PCP - General 07/18/10 03/05/12 [address] [place] [address] documented as of this encounter
--- OUTSIDE RECORDS SUMMARY | 2022-05-31 15:12 | XMS_ITS | Encounter Summary ---
:1965 Author Organization [facility] [place] [address] Care Team Providers Name Role Phone Monica Garcia MD Primary Care Provider Encounter Details Date Type Department Care Team Description 02/13/2011 Hospital Encounter XRay at [facility] Routine check-up 1 [facility] [place] [address] Social History Tobacco Use Types Packs/Day [...] 0 08/24/2010 07/25/2011 mcg nasal spray Evening [place] Oil 500 0 08/24/2010 01/24/2015 mg Cap [...] Maile Hinojosa MD [facility] ENDOCRINOLOGY [place], [place] [address] (Wo rk) 07/13/2022 Office Visit Endocrinology Maile Hinojosa MD [facility] ENDOCRINOLOGY [place], [place] [address] (Wo rk) 07/25/2022 Office Visit Pulmonology Tong Norman MD [facility] Pulmonary Medici ne [place], [place] 0[address] (Wo rk) documented as of this encounter Procedures Procedure Name Priority Date/Time Associated Diagnosis Comme nts DXA CENTRAL SPINE, Routine 02/13/2011 12:55 PM Routine general Results for this HIP, AND/OR WHOLE EDT medical examination pro cedure are in BODY (GENERIC) at a health care [facility] facility section. documented in this encounter Results [...] available through an interactive web-based interfa ce (http://[email or web address].ac.uk/FRAX/) and can be used to [...] have access to CIS, please contact Radiology Ski Technician at [phone] Saturday thru Saturday 8am-4pm. Procedure Note Sanket [...] This is available through an interactive web-based TVplus ce (http://www.shef.ac.uk/FRAX/) and can be used to [...] have access to CIS, please contact Radiology Ski Technician at [phone] Saturday thru Saturday 8am-4pm. Bobby Diamond MD IMG DEXA ORDERABLES documented in this encounter Visit Diagnoses Diagnosis Routine check-up Routine general medical examination at a health care facility documented in this encounter Care Teams Corporate Travel Agent Relationship Specialty Start Date End Date Monica Garcia MD PCP - General 07/18/10 03/05/12 [address] [place] [address] documented as of this encounter
--- OUTSIDE RECORDS SUMMARY | 2022-05-31 15:12 | XMS_ITS | Encounter Summary ---
:1965 Author Organization [facility] [place] [address] Care Team Providers Name Role Phone Monica Garcia MD Primary Care Provider Encounter Details Date Type Department Care Team Description 12/07/2010 Procedure visit [address] [address] Social History Tobacco Use Types Packs/Day Years [...] Hinojosa MD [facility] ER DR [place], [place] [address] (Wo rk) 07/13/2022 Office Visit Endocrinology Maile Hinojosa MD [facility] ER DR [place], [place] [address] (Wo rk) 07/25/2022 Office Visit Pulmonology Tong Norman MD [facility] Pulmonary Medici [place], [place] [address] (Wo rk) documented as of this encounter Visit Diagnoses Not on filedocumented in this encounter Care Teams Facilities Mechanical Design Engineer Relationship Specialty Start Date End Date Monica Garcia MD PCP - General 07/18/10 03/05/12 [address] [place] [address] documented as of this encounter
--- OUTSIDE RECORDS SUMMARY | 2022-05-31 15:12 | XMS_ITS | Encounter Summary ---
:1965 Author Organization [facility] [place] [address] Care Team Providers Name Role Phone Monica Garcia MD Primary Care Provider Encounter Details Date Type Department Care Team Description 02/13/2011 Hospital Encounter Laboratory Monica Garcia, [facility] Victor [place] [address] [address] [place], [place] [address] (Wo rk) Social History Tobacco [...] 0 08/24/2010 07/25/2011 mcg nasal spray Evening [place] Oil 500 0 08/24/2010 01/24/2015 mg Cap [...] Hinojosa MD [facility] ENDOCRINOLOGY [place], [place] [address] (Wo rk) 07/13/2022 Office Visit Endocrinology Maile Hinojosa MD [facility] ENDOCRINOLOGY [place], [place] [address] (Wo rk) 07/25/2022 Office Visit Pulmonology Tong Norman MD [facility] Pulmonary Medici ne [place], [place] [address] (Wo rk) documented as of this encounter Visit Diagnoses Not on filedocumented in this encounter Care Teams Operating System Designer Relationship Specialty Start Date End Date Monica Garcia MD PCP - General 07/18/10 03/05/12 [address] [place] [address] documented as of this encounter
--- OUTSIDE RECORDS SUMMARY | 2022-05-31 15:12 | XMS_ITS | Encounter Summary ---
:1965 Author Organization [facility] [place] [address] Care Team Providers Name Role Phone Monica Garcia MD Primary Care Provider Encounter Details Date Type Department Care Team Description 12/07/2010 Orders Only Obstetrics and Gynecology Lucy Germain APRN at [facility] Victor Manuel [place]ifuent[place] [address] [place] [address] [phone] (Wo rk) Social History Tobacco Use Types [...] Care Team Description 07/13/2022 Appointment Radiology Maile Hionjosa MD [facility] ER ENDOCRINOLOGY [place], [place] [address] (Wo rk) 07/13/2022 Office Visit Endocrinology Maile Hinojosa MD [facility] ENDOCRINOLOGY [place], [place] [address] (Wo rk) 07/25/2022 Office Visit Pulmonology Tong Norman MD [facility] Pulmonary Medici ne [place], [place] [address] (Wo rk) documented as of this encounter [...] on filedocumented in this encounter Care Teams Kiln Burner Relationship Specialty Start Date End Date Monica Garcia MD PCP - General 07/18/10 03/05/12 [address] [place] [address] documented as of this encounter
--- OUTSIDE RECORDS SUMMARY | 2022-05-31 15:12 | XMS_ITS | Encounter Summary ---
:1965 Author Organization [facility] [place] [address] Care Team Providers Name Role Phone Monica Garcia MD Primary Care Provider Encounter Details Date Type Department Care Team Description 07/25/2010 Procedure visit [place] [address] Social History Tobacco Use Types Packs/Day Years Used Date Never Assessed Sex Assigned at Date Recorded Female 01/29/2022 12:45 PM EDT documented as of this encounter Plan of Treatment Upcoming Encounters Date Type Specialty Care Team Description 07/13/2022 Appointment Radiology Maile Hinojosa MD [facility] DR MARMOLEJO [place], [place] [address] (Wo rk) 07/13/2022 Office Visit Endocrinology Maile Hinojosa MD [facility] [address] MARMOLEJO [place], [place] [address] (Wo rk) 07/25/2022 Office Visit Pulmonology Tong Norman MD [facility] Pulmonary Medici ne [place], [place] [address] (Wo rk) documented as of this encounter Visit Diagnoses Not on filedocumented in this encounter Care Teams Meat Butcher Relationship Specialty Start Date End Date Berrian, Monica M, MD PCP - General 07/18/10 03/05/12 [address] [place] [address] documented as of this encounter
--- OUTSIDE RECORDS SUMMARY | 2022-05-31 15:12 | XMS_ITS | Encounter Summary ---
:1965 Author Organization [facility] [place] [address] Care Team Providers Name Role Phone Monica Garcia MD Primary Care Provider Reason for Visit Reason Comments Nephrolithiasis Encounter Details Date Type Department Care Team Description 07/25/2011 [place] [facility] [place] Michael Nephrolithiasis ([facility] , Dx) [place] [address] UROLOGY DEPT. [phone] [place], [place] [address] Social History Tobacco Use Types [...] Hinojosa MD [facility] ENDOCRINOLOGY [place], [place] [address] (Wo rk) 07/13/2022 Office Visit Endocrinology Maile Hinojosa MD [facility] [address] MARMOLEJO [place], [place] [address] (Wo rk) 07/25/2022 Office Visit Pulmonology Tong Norman MD [facility] Pulmonary Medici ne [place], [place] [address] (Wo rk) documented as of [...] Clean Catch Urine (07/25/2011 11:11 AM EST) [facility] Method Time Signature Urine Culture CERNER ? Patient Name: JESSICA GTZ ? Ordered By: FERDINAND MICHAEL JR [facility] ? MR#: [id number] ?LOC: ??5B ? /Sex: ??1965 (45 years), [...] Address City/State/[place] [address] [facility] documented in this encounter Visit Diagnoses Diagnosis Nephrolithiasis - Primary Calculus of kidney Nephrolithiasis Calculus of kidney documented in this encounter Care Teams Coat Joiner Relationship Specialty Start Date End Date Monica Garcia MD PCP - General 07/18/10 03/05/12 [address] [place] [address] documented as of this encounter
--- OUTSIDE RECORDS SUMMARY | 2022-05-31 15:12 | XMS_ITS | Encounter Summary ---
:1965 Author Organization [facility] [place] [address] Care Team Providers Name Role Phone Monica Garcia MD Primary Care Provider Encounter Details Date Type Department Care Team Description 12/07/2010 Office Visit Lab [address] [place] [address] Social History Tobacco Use Types Packs/Day [...] Description 07/13/2022 Appointment Radiology Maile Hinojosa MD [facility] [address] JALEEL [place], [place] [address] (Wo rk) 07/13/2022 Office Visit Endocrinology Maile Hinojosa MD [facility] [address] J[address]EL [place], [place] [address] (Wo rk) 07/25/2022 Office Visit Pulmonology Tong Norman MD [facility] Pulmonary Mediceduardo [place], [place] [address] (Wo rk) documented as of this encounter Visit Diagnoses Not on filedocumented in this encounter Care Teams Council Member Relationship Specialty Start Date End Date Monica Garcia MD PCP - General 07/18/10 03/05/12 [address] [place] [address] documented as of this encounter
--- OUTSIDE RECORDS SUMMARY | 2022-05-31 15:12 | XMS_ITS | Encounter Summary ---
:1965 Author Organization [place] [address] Care Team Providers Name Role Phone Monica Garcia MD Primary Care Provider Encounter Details Date Type Department Care Team Description 12/12/2010 External Results Obstetrics and Bobby Diamond, Gynecology at [facility] [place] [address] OBSTETRICS & [phone] GYNECOLOGY [place], [place] [address] (Wo rk) Social History Tobacco [...] [facility] ER DR [place]ALEEL [place] [address] (Wo rk) 07/13/2022 Office Visit Endocrinology Maile Hinojosa MD [facility] ER ENDOCRINOLOGY [place], [place] [address] (Wo rk) 07/25/2022 Office Visit Pulmonology Tong Norman MD [facility] Pulmonary Medici ne [place], [place] [address] (Wo rk) documented as of this encounter Procedures Procedure Name Priority Date/Time Associated Diagnosis Comme nts LAB SCAN Routine 12/08/2010 documented in this encounter Results LAB SCAN (12/08/2010) Narrative This result has an attachment that is no t available. Bobby Diamond MD MEDIA MGR SCAN EXT ORDR/RSLT documented in this encounter Visit Diagnoses Not on filedocumented in this encounter Care Teams Income Tax Adjuster Relationship Specialty Start Date End Date Monica Garcia MD PCP - General 07/18/10 03/05/12 [address] [place] [address] documented as of this encounter
--- OUTSIDE RECORDS SUMMARY | 2022-05-31 15:12 | XMS_ITS | Encounter Summary ---
:1965 Author Organization [facility] [place] [address] Care Team Providers Name Role Phone Monica Garcia MD Primary Care Provider Encounter Details Date Type Department Care Team Description 07/26/2010 Follow-Up Dermatology Sarah Kidd [place] [address] [facility] [phone] [place] [address] (Wo rk) Social History Tobacco Use Types Packs/Day Years Used Date Never Assessed Sex Assigned at Date Recorded Female 01/29/2022 12:45 PM EDT documented as of this encounter Plan of Treatment Upcoming Encounters Date Type Specialty Care Team Description 07/13/2022 Appointment Radiology Maile Hinojosa MD [facility] ENDOCRINOLOGY [place], [place] [address] (Wo rk) 07/13/2022 Office Visit Endocrinology Maile Hinojosa MD [facility] DR MARMOLEJO [place], [place] [address] (Wo rk) 07/25/2022 Office Visit Pulmonology Tong Norman MD [facility] Pulmonary Medici [place], [place] [address] (Wo rk) documented as of this encounter Visit Diagnoses Not on filedocumented in this encounter Care Teams Veterinarian Relationship Specialty Start Date End Date Monica Garcia MD PCP - General 07/18/10 03/05/12 [address] [place] [address] documented as of this encounter
--- OUTSIDE RECORDS SUMMARY | 2022-05-31 15:12 | XMS_ITS | Encounter Summary ---
:1965 Author Organization [facility] [place] [address] Care Team Providers Name Role Phone Monica Garcia MD Primary Care Provider Reason for Visit Reason Comments Follow-up Encounter Details Date Type Department Care Team Description 07/09/2011 Follow-Up [facility]rology at [facility] DR ESPINO Nephrolithiasis (Primary [facility] Nadia Stapleton, [facility] UROLOGY DEPT. [place] [id number] Dx) [place] [address] Social History Tobacco Use Types Packs/Day Years [...] documented in this encounter Progress Notes Nadia Staplteon, SACHA - 07/09/2011 2:20 PM EST Chief [...] MD [facility] DR MARMOLEJO [place], [place] [address] (Rahul ascencio) 07/13/2022 Office Visit Endocrinology Maile Hinojosa MD [facility] DR MARMOLE[address] [place], [place] [address] (Rahul ascencio) 07/25/2022 Office Visit Pulmonology Tong Norman MD [facility] Pulmonary Medici ne [place], [place] [address] (Rahul ascencio) documented as of this encounter Results US retroperitoneal complete (01/08/2012 4:31 PM EDT) Anatomical Region Laterality Modality Abdomen Ultrasound Specimen (Source) Anatomical Collection Method Collection Time Re ceived Time Location / / Volume Laterality 01/08/2012 4:31 PM EDT Narrative 01/08/2012 4:59 PM EDT ? Renal ? (Signed Final 01/08/2012 04 :58 pm) Patient Info ID: ? [id number] ? : [birth year] (46 yrs) Name: ? JESSICA GTZ ? Visit Date: 01/08/2012 04:29 pm Performed By Performed By: ?Akash Muse RDMS Attending: ? Veronica GILL, Weston Maloney Referred By: ? FERDINAND MICHAEL MD Service(s) Provided URETRO - Retroperitoneal Complete - 002 [id number] ? [id number] Indications Nephrolithiasis Right Kidney Size (cm) ?L: [...] Final 01/08/2012 04:58 pm) Patient Info ID: [id number] : [birth year] (46 yrs ) Name: JESSICA GTZ Visit Date: 01/07 04:29 pm Performed By Performed By: Akash Muse RDMS Attending: West[place] MD. Referred By: FERDINAND MICHAEL MD Service(s) Provided URETRO - Retroperitoneal Complete - 002 [id number] Indications Nephrolithiasis Right Kidney Size (cm) L: [...] kidney documented in this encounter Care Teams Head Of Sales Promotion Relationship Specialty Start Date End Date Monica Garcia MD PCP - General 07/18/10 03/05/12 [address] [place] [address] documented as of this encounter
--- OUTSIDE RECORDS SUMMARY | 2022-05-31 15:12 | XMS_ITS | Encounter Summary ---
:1965 [place] [address] Care Team Providers Name Role Phone Monica Garcia MD Primary Care Provider Encounter Details Date Type Department Care Team Description 08/24/2010 Hospital Encounter Same Day Program at [facility] Jr[facility] [place] [address] [place] [address] [phone] (Wo rk) Social History Tobacco Use Types [...] 0 08/24/2010 07/25/2011 mcg nasal spray Evening [place] Oil 500 mg 0 08/24/20 10 01/24/2015 [...] Hinojosa MD [facility] ENDOCRINOLOGY [place], [place] [address] (Wo rk) 07/13/2022 Office Visit Endocrinology Maile Hinojosa MD [facility] DR MARMOLEJO [place], [place] [address] (Wo rk) 07/25/2022 Office Visit Pulmonology Tong Norman MD [facility] Pulmonary Medici ne [place], [place] [address] (Wo rk) documented as of this encounter Procedures Procedure Name Priority Date/Time Associated Diagnosis Comme nts SURGICAL PATHOLOGY Routine 08/24/2010 6:40 PM Res ults for this REPORT EST procedure are i n the results section. documented in this encounter Results PATHOLOGY SURGICAL PATHOLOGY FINAL REPORT (08/24/2010 6:40 PM EST) Component Value Ref Test Analysis Performed At [facility] gist Range Method Time Signature Surgical CERNER Pathology ? [facility] Report ? Provider: ?? FERDINAND MICHAEL JR ?? Pt. Name: ?? TRESA JESSICA Charles ? Acc #: ?[id number] ?Pt. MRN: ?[id number] ? Col Date: ?? 08/24/2010 ?/Sex: ?1 [...] Report of Stone A nalysis, order # [id number], has been received from the ? [facility], [address] , [place], [place], [place] ??[address]. ? For the full text of the Umanzor report please refer to Non-DH Documentation ? [...] MD PATHOLOGY/CYTOLOGY ORDERABLE S Performing Organization Address [facility]/State/[place] [address] H[address] LABORATORY [facility] documented in this encounter Visit Diagnoses Not on filedocumented in this encounter Care Teams Transfer Worker Relationship Specialty Start Date End Date Monica Garcia MD PCP - General 07/18/10 03/05/12 [address] [place] [address] documented as of this encounter
--- OUTSIDE RECORDS SUMMARY | 2022-05-31 15:12 | XMS_ITS | Encounter Summary ---
:1965 Author Organization [facility] [place] [address] Care Team Providers Name Role Phone Monica Garcia MD Primary Care Provider Encounter Details Date Type Department Care Team Description 07/09/2011 Hospital Encounter Ultrasound at [facility] [place] [address] Social History Tobacco Use Types Packs/Day [...] 0 08/24/2010 07/25/2011 mcg nasal spray Evening [place] Oil 500 0 08/24/2010 01/24/2015 mg Cap [...] Description 07/13/2022 Appointment Radiology Maile Hinojosa MD [facility] ENDOCRINOLOGY [place], [place] [address] (Wo rk) 07/13/2022 Office Visit Endocrinology Maile Hinojosa MD [facility] ER DR MARMOLEJO [place], [place] [address] (Wo rk) 07/25/2022 Office Visit Pulmonology Tong Norman MD [facility] er Pulmonary Medici ne [place], [place] [address] (Wo rk) documented as of [...] 01 :47 pm) Patient Info ID: ? [id number] ? : [birth year] (45 yrs) Name: ? JESSICA GTZ ? Visit Date: 07/09/2011 01:28 pm Performed By Performed By: ?Daphne Menjivar RDMS Associate: ? Luciano GILL, Sumanth Ruiz Attending: ? Luna GILL, Genie Ruiz Referred By: ? CIERA ARMENDARIZ Accession#: ?[id number] Service(s) Provided URETRO - Retroperitoneal Complete - 002 [id number] ? [id number] Indications H/o nephrolithiasis, assess for new sto [...] Final 07/09/2011 01:47 pm) Patient Info ID: [id number] : [birth year] (45 yrs ) Name: JESSICA GTZ Visit Date: 07/09 01:28 pm Performed By Performed By: Daphne Menjivar RDMS Associate: Luciano GILL, Sumanth Beltran Attending: Genie Carrasco MD Referred By: CIERA DOMENICOJAS [facility] Service(s) Provided URETRO - Retroperitoneal Complete - 002 [id number] Indications H/o nephrolithiasis, assess for new sto [...] kidney documented in this encounter Care Teams Agriculture Mechanic Relationship Specialty Start Date End Date Monica Garcia MD PCP - General 07/18/10 03/05/12 [address] [place] [address] documented as of this encounter
--- OUTSIDE RECORDS SUMMARY | 2022-05-31 15:12 | XMS_ITS | Encounter Summary ---
:1965 [place] [address] Care Team Providers Name Role Phone Monica Garcia MD Primary Care Provider Encounter Details Date Type Department Care Team Description 07/25/2010 Orders Only Lab [facility] Ferdinand Michael Jr., MD [facility] Victor Manuel cifuent[place] [address] [place] [address] [phone] (Wo rk) Social History Tobacco Use Types Packs/Day Years Used Date Never Assessed Sex Assigned at Date Recorded Female 01/29/2022 12:45 PM EDT documented as of this encounter Plan of Treatment Upcoming Encounters Date Type Specialty Care Team Description 07/13/2022 Appointment Radiology Maile Hinojosa MD [facility] ENDOCRINOLOGY [place], [place] [address] (Wo rk) 07/13/2022 Office Visit Endocrinology Maile Hinojosa MD [facility] ENDOCRINOLOGY [place], [place] [address] (Wo rk) 07/25/2022 Office Visit Pulmonology Tong Norman MD [facility] Pulmonary Medici [place], [place] [address] (Wo rk) documented as of this encounter Procedures Procedure Name Priority Date/Time Associated Diagnosis Comme nts URINE CULTURE Routine 07/25/2010 5:00 PM Results for this EST procedure are i n the results section . documented in this encounter Results URINE CULTURE (07/25/2010 5:00 PM EST) [facility] Method Time Signature Urine Culture CERNER ? Patient Name: JESSICA GTZ ? Ordered By: FERDINAND MICHAEL JR [facility] ? MR#: [id number] ?LOC: ??5B ? /Sex: ??1965 (44 years), [...] Organization Address City/State/ZIP Code Phon e Number [place] [phone] LAB[address] [facility] documented in this encounter Visit Diagnoses Not on filedocumented in this encounter Care Teams Communications Associate Relationship Specialty Start Date End Date Monica Garcia MD PCP - General 07/18/10 03/05/12 [address] [place] [address] documented as of this encounter
--- OUTSIDE RECORDS SUMMARY | 2022-05-31 15:12 | XMS_ITS | Encounter Summary ---
:1965 Author Organization [facility] [place] [address] Care Team Providers Name Role Phone Monica Garcia MD Primary Care Provider Encounter Details Date Type Department Care Team Description 12/07/2010 Hospital Encounter Obstetrics and Bobby Diamond, Gynecology at [facility] [place] [address] OBSTETRICS & [phone] GYNECOLOGY [place], [place] [address] (Wo rk) Social History Tobacco [...] 0 08/24/2010 07/25/2011 mcg nasal spray Evening Manila Oil 500 0 08/24/2010 01/24/2015 mg Cap [...] Maile Hinojosa MD [facility] ENDOCRINOLOGY [place], [place] [address] (Wo rk) 07/13/2022 Office Visit Endocrinology Maile Hinojosa MD [facility] ENDOCRINOLOGY [place], [place] [address] (Wo rk) 07/25/2022 Office Visit Pulmonology Tong Norman MD [facility] Pulmonary Medici [place], [place] [address] (Wo rk) documented as of this encounter Visit Diagnoses Not on filedocumented in this encounter Care Teams Physician General Practice Relationship Specialty Start Date End Date Monica Garcia MD PCP - General 07/18/10 03/05/12 [address] [place] [address] documented as of this encounter
--- OUTSIDE RECORDS SUMMARY | 2022-05-31 15:12 | XMS_ITS | Encounter Summary ---
:1965 Author Organization [facility] [place] [address] Care Team Providers Name Role Phone Monica Garcia MD Primary Care Provider Encounter Details Date Type Department Care Team Description 07/25/2010 Follow-Up Urology at [facility] [place] [place] Luis Michael Jr., MD [facility] [place] [address] UROLOGY DEPT. [phone] [place], [place] [address] (Wo rk) Social History Tobacco Use Types Packs/Day Years Used Date Never Assessed Sex Assigned at Date Recorded Female 01/29/2022 12:45 PM EDT documented as of this encounter Plan of Treatment Upcoming Encounters Date Type Specialty Care Team Description 07/13/2022 Appointment Radiology Maile Hinojosa MD [facility] ENDOCRINOLOGY [place], [place] [address] (Wo rk) 07/13/2022 Office Visit Endocrinology Maile Hinojosa MD [facility] ENDOCRINOLOGY [place], [place] [address] (Wo rk) 07/25/2022 Office Visit Pulmonology Tong Norman MD [facility] Pulmonary Medici [place], [place] [address] (Wo rk) documented as of this encounter Visit Diagnoses Not on filedocumented in this encounter Care Teams Fuel Dock Attendant Relationship Specialty Start Date End Date Monica Garcia MD PCP - General 07/18/10 03/05/12 [address] [place] [address] documented as of this encounter
--- OUTSIDE RECORDS SUMMARY | 2022-05-31 15:12 | XMS_ITS | Encounter Summary ---
:1965 Author Organization [facility] Address [facility] [place] [address] Care Team Providers Name Role Phone Monica Garcia MD Primary Care Provider Reason for Visit Reason Comments Gynecologic Exam Encounter Details Date Type Department Care Team Description 12/07/2010 Office Visit Obstetrics and Bobby Diamond Routine check-up; Gynecology at [facility] [place] MD Victor Manuel Perimenopause [facility] [place] [address] OBSTETRICS & [phone] GYNECOLOGY [place], [place] [address] (Wo rk) Social History Tobacco [...] [place]-menopausal female who presents for her annual PROBATE PARALEGAL exam. She continues to use Climara-Pro and [...] Maile Hinojosa MD [facility] ENDOCRINOLOGY [place], [place] [address] (Wo rk) 07/13/2022 Office Visit Endocrinology Maile Hinojosa MD [facility] ENDOCRINOLOGY [place], [place] [address] (Wo rk) 07/25/2022 Office Visit Pulmonology Tong Norman MD [facility] Pulmonary Medici [place], [place] [address] (Wo rk) documented as of this encounter Visit Diagnoses Diagnosis Routine check-up Routine general medical examination at a health care facility Perimenopause Symptomatic menopausal or female climact [place] documented in this encounter Care Teams Readers' Advisory Service Librarian Relationship Specialty Start Date End Date Monica Garcia MD PCP - General 07/18/10 03/05/12 [address] [place] [address] documented as of this encounter
--- OUTSIDE RECORDS SUMMARY | 2022-05-31 15:12 | XMS_ITS | Encounter Summary ---
:1965 Author Organization [facility] [place] [address] Care Team Providers Name Role Phone Monica Garcia MD Primary Care Provider Encounter Details Date Type Department Care Team Description 07/15/2011 Orders Only Urology at [facility] Ilya Bermudez, Nephrolithiasis ([facility] SACHA Zuniga Dx) [place], [place] CENTER [address] UROLOGY DEPT. [phone] [place] [address] Social History Tobacco Use Types Packs/Day Years [...] Appointment Radiology Maile Hinojosa MD [facility] ENDOCRINOLOGY [place], [place] [address] (Wo rk) 07/13/2022 Office Visit Endocrinology Maile Hinojosa MD [facility] ENDOCRINOLOGY [place], [place] [address] (Wo rk) 07/25/2022 Office Visit Pulmonology Tong Norman MD [facility] Pulmonary Medici ne [place], [place] [address] (Wo rk) documented as of this encounter Visit Diagnoses Diagnosis Nephrolithiasis - Primary Calculus of kidney documented in this encounter Care Teams Shift Supervisor Rn Relationship Specialty Start Date End Date Monica Garcia MD PCP - General 07/18/10 03/05/12 [address] [place] [address] documented as of this encounter
--- OUTSIDE RECORDS SUMMARY | 2022-05-31 15:12 | XMS_ITS | Encounter Summary ---
:1965 Author Organization [facility] [place] [address] Care Team Providers Name Role Phone Monica Garcia MD Primary Care Provider Encounter Details Date Type Department Care Team Description 12/07/2010 Orders Only Urology at [facility] Luis Michael Jr., [place] [address] UROLOGY DEPT. [phone] [place], [place] [address] (Wo rk) Social History Tobacco [...] Appointment Radiology Maile Hinojosa MD [facility] ER [address] [place] [address] (Wo rk) 07/13/2022 Office Visit Endocrinology Maile Hinojosa MD [facility] ENDOCRINOLOGY [place], [place] [address] ([facility]) 07/25/2022 Office Visit Pulmonology Tong Norman MD [facility] Pulmonary Medici ne [place], [place] [address] ([facility]) documented as of this encounter Procedures Procedure [...] 12/07/2010 03 :27 pm) Patient Info ID: ?[id number] ?: ??[birth year] (45 yrs) Name: ?JESSICA GTZ ?Visit Date: 12/07/2010 03:16 pm Procedures URETRO - Retroperitoneal Complete - 002 [id number] ? [id number] Indications ? Stones ? Hydronephrosis ------- History [...] Final 12/07/2010 03:27 pm) Patient Info ID: [id number] : [birth year] (45 yrs ) Name: JESSICA GTZ Visit Date: 12/07 03:16 pm Procedures URETRO - Retroperitoneal Complete - 002 [id number] Indications ? Stones ? Hydronephrosis ------- History [...] on filedocumented in this encounter Care Teams Guest Services Coordinator Relationship Specialty Start Date End Date Monica Garcia MD PCP - General 07/18/10 03/05/12 [address] [place] [address] documented as of this encounter
--- OUTSIDE RECORDS SUMMARY | 2022-05-31 15:16 | XMS_ITS | Encounter Summary ---
:1965 Author Organization [facility] Address [address] [place] [address] Care Team Providers Name Role Phone Unavailable Primary Care Provider Unavailable Encounter Details Date Type Department Care Team Description 01/31/2007 Results Only [facility] - Manish Chiu MD conversion [address] [place] [address] Social History Tobacco Use Types Packs/Day Years [...] JESSICA GTZ WRN ? Accession #: ? [id number] : ? 1965 (Age: 41) ??F ?Collect Date: ? 0603/2007 Location: ? [facility] ? Receive Date : ? 02/03/2007 Provider: ?MANISH COUCH MD Copy to: ? Specimen/Source: ? ThinPrep Pap Test, Cervix/Endocervix, processed on Baoku ThinPrep Imaging System, with manual evaluation Last [...] Organization Address City/State/ZIP Code Phon e Number [facility] [address] [place] [address] SERVICES [facility] [address] [place] [address] documented in this encounter Visit Diagnoses Not on filedocumented in this encounter
--- OUTSIDE RECORDS SUMMARY | 2022-05-31 15:16 | XMS_ITS | Encounter Summary ---
:1965 Author Organization [facility] Address [address] [place] [address] Care Team Providers Name Role Phone Unknown, Provider Primary Care Provider Encounter Details Date Type Department Care Team Description 08/15/2015 Results Only [facility]- PRISM Suzie Shannon NP [phone] [facility] [address] [place], [place] [id number] (Wo rk) Social History Tobacco Use Types [...] (08/15/2015 0:00 EST) Pathology Report: CYTOPATHOLOGY REPORT [facility] Reports generated via electronic interface contain panda ginal data; SERVICES however they are lacking the format of the original re port. Caution should be taken when reading/interpreting unfo rmatted reports. Name: ? JESSICA GTZ ? Accession #: ? [id number] : ? 1965 (Age: 50) ??F ?Collect Date: ? 07/27 Location: ? [facility] ? Receive Date : ? 08/17/2015 Provider: ?SUZIE SHANNON CUSTOMER SALES REPRESENTATIVE Copy to: ?AVERY EARLY PANEL BUILDER ? Specimen/Source: ? Pap Test, Cervix/Endocervix, ThinPrep [...] Organization Address City/State/ZIP Code Phon e Number [facility] [address] [place] [address] SERVICES documented in this encounter Visit Diagnoses Not on filedocumented in this encounter Care Teams Video Coordinator Relationship Specialty Start Date End Date Unknown, Provider, PCP - General 07/04/15 documented as of this encounter
--- OUTSIDE RECORDS SUMMARY | 2022-05-31 15:16 | XMS_ITS | Encounter Summary ---
:1965 Author Organization [facility] Address [address] [place] [address] Care Team Providers Name Role Phone Unavailable Primary Care Provider Unavailable Encounter Details Date Type Department Care Team Description 03/29/2008 Before PRISM Converted [facility] - Isa Cotto, Visit (Tara) Tara rose MD [address] [place] [address] Social History Tobacco Use Types Packs/Day Years Used Date Never Assessed Sex Assigned at Date Recorded Not on file documented as of this encounter Plan of Treatment Not on filedocumented as of this encounter Procedures Procedure Name Priority Date/Time Associated Diagnosis Comme nts CYTOPATHOLOGY Routine 03/29/2008 0:00 EDT Results for this procedure are i n the results section . documented in this encounter Results CYTOPATHOLOGY (03/29/2008 0:00 EDT) Pathology Report: CYTOPATHOLOGY REPORT ? [facility] ? LAB Reports generated via Wheelright interface contain original data; ? however they are lacking the format of the original report. ? Caution should be taken when reading/interpreting unformatted reports. ? Name: ? JESSICA GTZ ? Accession #: ? [id number] ? : ? 1965 (Age: 42) ??F ?Collect Date: ? 03/29/2008 ? Location: ? [facility] ? Receive Date: ? 03/30/2008 ? Provider: ?SEGUN FORT IER MD ? Copy to: ? Specimen/Source: ? ThinPrep Pap Test, Cervix/Endocervix, processed on Cytyc ThinPrep Imaging System, wit h manual evaluation ? Last Menstrual Period: ? Other: ? Additional clinical informat ion: Nl exam, on Climara ? SPECIMEN ADEQUACY ? Satisfactory for Eval uation ? - transformation zone compon ent present ? GENERAL CATEGORIZATION ? Negative for Intraepi thelial Lesion or Malignancy ? Document reviewed and electr onically signed by: ? Daphne F. Colasaccfuentes, S CT(ASCP) ? Report Date: ??08/06/ 2008 15:17 ? End of Report ? Specimen Performing Organization Address City/State/ZIP Code Phon e Number [facility] [address] [place] [address] SERVICES [facility] [address] [place] [address] documented in this encounter Visit Diagnoses Not on filedocumented in this encounter
--- OUTSIDE RECORDS SUMMARY | 2022-05-31 15:16 | XMS_ITS | Encounter Summary ---
:1965 Author Organization [facility] Address [address] [place] [address] Care Team Providers Name Role Phone Unavailable Primary Care Provider Unavailable Encounter Details Date Type Department Care Team Description 07/10/2000 Before PRISM [facility] - Kristal Carroll, Converted Visit Maple conversion PERFORATOR OPERATOR (Maple) 111 [facility] [address] [place] [address] [place], [place] [phone] (Wo rk) Social History Tobacco Use Types [...] JESSICA GTZ WRN ? Accession #: ? [id number] : ? 1965 (Age: 34) ??F ?Collect Date: ? 06/26 Location: ? [facility] ? Receive Date : ? 07/11/2000 Provider: ?KRISTAL CARROLL PERFORATOR OPERATOR Copy to: ? Specimen/Source: ?ThinPrep Pap Test, Cervix/ Endocervix Last Menstrual Period: ? Hormonal/Contraceptive Status: ? Depo-Provera ? SPECIMEN ADEQUACY ? Satisfactory for evaluation. GENERAL CATEGORIZATION ? Within Normal Limits ? Document reviewed and electronically signed by: ? AVI Ackerman(ASCP) ? Report Date: ??07/19/2000 13:38 End of Report Specimen Performing Organization Address City/State/ZIP Code Phon e Number [facility] [address] [place] [address] SERVICES [facility] [address] [place] [address] documented in this encounter Visit Diagnoses Not on filedocumented in this encounter
--- OUTSIDE RECORDS SUMMARY | 2022-05-31 15:16 | XMS_ITS | Encounter Summary ---
:1965 Author Organization [facility] Address [address] [place] [address] Care Team Providers Name Role Phone Unavailable Primary Care Provider Unavailable Encounter Details Date Type Department Care Team Description 12/11/2004 Results Only [facility] - Tara Luong od, Kristal Estrada, FINANCE SPECIALIST [facility] [address] [place] [phone] (Wo rk) Social History Tobacco Use Types [...] when reading/interpreting unfo rmatted reports. Name: ? JESISCA GTZ WRN ? Accession #: ? [id number] : ? 1965 (Age: 39) ??F ?Collect Date: ? 11/24 Location: ? [facility] ? Receive Date : ? 12/13/2004 Provider: ?KRISTAL GORDON FINANCE SPECIALIST Copy to: ? Specimen/Source: ?Conventional Pap [...] Address City/State/ZIP Code Phon e Number [facility] [address] [place] [address] SERVICES [facility] [address] [place] [address] documented in this encounter Visit Diagnoses Not on filedocumented in this encounter
--- OUTSIDE RECORDS SUMMARY | 2022-05-31 15:16 | XMS_ITS | Encounter Summary ---
:1965 Author Organization [facility] Address [address] [place] [address] Care Team Providers Name Role Phone Unavailable Primary Care Provider Unavailable Encounter Details Date Type Department Care Team Description 08/24/2003 Before PRISM [facility] - Kristal Carroll, Converted Visit Maple conversion MATHEMATICAL ENGINEER (Maple) 111 [facility] [address] [place] [address] [place], [place] [phone] (Wo rk) Social History Tobacco Use Types Packs/Day Years Used Date Never Assessed Sex Assigned at Date Recorded Not on file documented as of this encounter Plan of Treatment Not on filedocumented as of this encounter Procedures Procedure Name Priority Date/Time Associated Diagnosis Comme nts CYTOPATHOLOGY Routine 08/24/2003 0:00 EST Results for this procedure are i n the results section . documented in this encounter Results CYTOPATHOLOGY (08/24/2003 0:00 EST) Pathology Report: CYTOPATHOLOGY REPORT [facility] Reports generated via electronic interface contain panda ginal data; however they are lacking the format of the original re port. Caution should be taken when reading/interpreting unfo rmatted reports. Name: ? JESSICA GTZ WRN ? Accession #: ? [id number] : ? 1965 (Age: 38) ??F ?Collect Date: ? 07/28 Location: ? [facility] ? Receive Date : ? 08/27/2003 Provider: ?KRISTAL CARROLL MATHEMATICAL ENGINEER Copy to: ? Specimen/Source: ?Conventional Pap Test, Cer vix/Endocervix Last Menstrual Period: ? 08/15/03 ? SPECIMEN ADEQUACY ? Satisfactory for Evaluation - transformation zone component present GENERAL CATEGORIZATION ? Negative for Intraepithelial Lesion or Malignan cy ? Document reviewed and electronically signed by: ? Suzie Fournier, SCT(ASCP) ? Report Date: ??09/02/2003 17:16 End of Report Specimen Performing Organization Address City/State/ZIP Code Phon e Number [facility] [address] [place] [address] SERVICES [facility] [address] [place] [address] documented in this encounter Visit Diagnoses Not on filedocumented in this encounter
--- OUTSIDE RECORDS SUMMARY | 2022-05-31 15:16 | XMS_ITS | Encounter Summary ---
:1965 Author Organization [facility] Address [address] [place] [address] Care Team Providers Name Role Phone Unavailable Primary Care Provider Unavailable Encounter Details Date Type Department Care Team Description 07/14/2002 Before PRISM [facility] - Kristal Carroll, Converted Visit Maple conversion WATERSHED COORDINATOR (Maple) 111 [facility] [address] [place] [address] [place], [place] [phone] (Wo rk) Social History Tobacco Use Types [...] JESSICA GTZ WRN ? Accession #: ? [id number] : ? 1965 (Age: 36) ??F ?Collect Date: ? 06/26 Location: ? [facility] ? Receive Date : ? 07/15/2002 Provider: ?KRISTAL CARROLL WATERSHED COORDINATOR Copy to: ? Specimen/Source: ?Conventional Pap Test, [...] City/State/ZIP Code Phon e Number [facility] [address] [place] [address] SERVICES [facility] [address] [place] [address] documented in this encounter Visit Diagnoses Not on filedocumented in this encounter
--- OUTSIDE RECORDS SUMMARY | 2022-05-31 15:16 | XMS_ITS | Encounter Summary ---
:1965 Author Organization [facility] Address [address] [place] [address] Care Team Providers Name Role Phone Unknown, Provider Primary Care Provider Encounter Details Date Type Department Care Team Description 01/05/2022 Lab Requisition [facility] Outr Resulting Lab, Pathology & Laboratory Provider [facility] [address] [place], [place] [id number] Social History Tobacco Use Types Packs/Day Years [...] 15:51 EDT) Calcium, Urine 10.0 See Note [facility] Comment: mg/dL [facility]ENTER LAB[facility] NOTE: SERVICES Reference range not established Calcium, Urine 24 330 (H)Comment: 100 - 300 [facility] hr Reference range mg/24hrs CENTER LABORATORY assumes a normal SERVICES daily intake of calcium between 600 - 800 mg/day. Urine Volume 3,300 mL [facility] SERVICES Urine Collection 24.0 Hours [facility] CENTER LABORATORY SERVICES Specimen Urine - 24 hour urine specimen (specimen ) Performing Organization Address City/State/ZIP Code Phon e Number [facility] [address] [place] [address] SERVICES documented in this encounter Visit Diagnoses Not on filedocumented in this encounter Care Teams Conservation Engineer Relationship Specialty Start Date End Date Unknown, Provider, PCP - General 07/04/15 documented as of this encounter
--- OUTSIDE RECORDS SUMMARY | 2022-05-31 15:16 | XMS_ITS | Clinical Summary ---
:1965 Author Organization [facility] Address [address] [place] [address] Care Team Providers Name Role Phone Unknown, Provider Primary Care Provider Social History Tobacco Use Types Packs/Day Years Used Date Never Assessed Sex Assigned at Date Recorded Not on file Plan of Treatment Not on file Care Teams Upholsterer Inside Relationship Specialty Start Date End Date Unknown, Provider, PCP - General 07/04/15
--- NOTE | 2022-05-31 16:10 | DI.RAD_ITS ---
Exam(s) XR KNEE RT 3V AP,LAT,HERNAN EXAM: XR KNEE RT 3V AP,LAT,HERNAN CLINICAL HISTORY: RT KNEE PAIN M25.561, R/O OA TECHNIQUE: COMPARISON: No exams were available for comparison FINDINGS: Three views were obtained. There are fixation screws of the anterior tibial tubercle. Cartilaginous joint spaces are well maintained. No gross joint effusion on the lateral view. No other bony or so ft tissue abnormality seen. IMPRESSION: RADIATION DOSE DELIVERED: Total DLP
== END ==
PROVIDERS: PCP Nurse Practitioner Family; Visit Provider Nurse Practitioner Family
DX: M25.561 Pain in right knee (principal)
CPT/HCPCS: 73562

== ENCOUNTER 2022-06-02 15:21 | Outpatient (REF) | payer BC, SELFPAY ==
[2022-06-02 17:52] LABS: Bacteria Rare HPF (Negative); C & S Indicated? C&S Done As Ordered; Casts Negative LPF (Negative); Crystals Negative HPF (Negative); Epithelial Cells Many HPF (Negative); Mucus Negative (Negative); RBC 0-2 HPF (0-2)
== END 2022-06-02 15:22 | disposition home or self-care (01) ==
LOC: LBN 15:21
PROVIDERS: PCP Nurse Practitioner Family; Visit Provider Physician Assistant Medical
DX: R35.0 Frequency of micturition (principal)
CPT/HCPCS: 81015; 87086

== ENCOUNTER → 2022-06-14 11:06 | Outpatient (CLI) | payer BC, SELFPAY ==
[2022-06-14] MEDS: Omnipaque 350 MG/ML 500 ML BTL-Imaging package IJ (10:06)
--- NOTE | 2022-06-14 10:10 | DI.CT_ITS ---
Exam(s) CT CHEST PE CTA EXAM: CT CHEST PE CTA CLINICAL HISTORY: DYSPNEA, R06.00; H/O ASTHMA, COVID-19, GERD. TECHNIQUE: Imaging Protocol: Axial CT angiography was performed with multi-slice acquisition and mu lti-planar and/or 3D reconstructions. CONTRAST MATERIAL: Intravenous: Omnipaque 350 Contrast volume:structured data in ml COMPARISON: CT CT RENAL COLIC WO from 05/16/2022 FINDINGS: CT angiography of the chest was performed with intravenous infusion of 68 cc of Omnipaque 350. The lungs are clear. No pleural effusion. Tracheobronchial tree appears intact. No evidence of pulmonary embolic disease. Thoracic aorta is of normal diameter, no thoracic aortic an eurysm or dissection, major branch vessels appear intact. No mediastinal or hilar adenopathy. Images obtained through the upper abdomen show unremarkable appearance of the visualized portions of the liver, spleen, pancreas, adrenals, and kidneys. IMPRESSION: Negative CT angiogram of the chest. No evidence of pulmonary embolic disease. RADIATION DOSE DELIVERED: 309.46mGy.cm Total DLP 309.46mGy.cm Total DLP !Error CTDIvol DATA REPOSITORY: All CT scans at this facility are submitted to the National Radiology Data Registry (NRDR) Dose Index Registry (DIR) with the [employer] (ACR). RADIATION OPTIMIZATION: All CT scans at this facility use at least one of these dose optimization te chniques: automated exposure control; mA and/or kV adjustment per patient size (includes targeted exa ms where dose is matched to clinical indication); or iterative reconstruction.
--- OUTSIDE RECORDS SUMMARY | 2022-06-14 11:12 | XMS_ITS | Encounter Summary ---
:1965 Author Organization [facility] [place] [address] Care Team Providers Name Role Phone Janet Davey Isa GONCALVES Primary Care Provider Encounter Details Date Type Department Care Team Description 05/17/2022 Orders Only Urology at [facility] [facility] Luis Michael Jr., MD [facility] [place] [address] UROLOGY DEPT. [phone] [place], [place] [address] (Wo rk) Social History Tobacco [...] Description 07/13/2022 Appointment Radiology Maile Hinojosa MD [facility] [place] [address] [place] [address] (Wo rk) 07/13/2022 Office Visit Endocrinology Maile Hinojosa MD [facility] ER ENDOCRINOLOGY [place], [place] [address] (Wo rk) 07/25/2022 Office Visit Pulmonology Tong Norman MD [facility] Medical [facility] Pulmonary Medici [place] [address] (Wo rk) documented as of this encounter Visit Diagnoses Not on filedocumented in this encounter Care Teams Jumpbasting Canvas Baster Relationship Specialty Start Date End Date Janet Davey APRN PCP - General Family Medicine 07/13/20 [address] [place] [address] documented as of this encounter
--- OUTSIDE RECORDS SUMMARY | 2022-06-14 11:12 | XMS_ITS | Encounter Summary ---
:1965 Author Organization [place] [address] Care Team Providers Name Role Phone Petar Janet Moss APRN Primary Care Provider Encounter Details Date Type Department Care Team Description 05/17/2022 Telephone Urology at [facility] Therese Aponte, [place] [address] Social History Tobacco Use Types Packs/Day Years Used Date Never Smoker Smokeless Tobacco: Never Used Alcohol Use Standard Drinks/Week Comments No 0 (1 standard drink = 0.6 oz pure alcoho l) Sex Assigned at Date Recorded Female 01/29/2022 12:45 PM EDT documented as of this encounter Miscellaneous Notes Telephone Encounter - Therese Aponte [facility] - 05/21/2022 10:44 AM EDT I called [...] she had gone to the ED in [facility] for Kidney stonepain. They stated she [...] Radiology Maile Hinojosa MD [facility] [address] [place]MO[place] [place] [id number] (Wo rk) 07/13/2022 Office Visit Endocrinology Maile Hinojosa MD [facility] [address] MARMOLEJO [place], [place] [address] (Wo rk) 07/25/2022 Office Visit Pulmonology Tong Norman MD [facility] Pulmonary Medici ne [place], [place] [address] (Wo rk) documented as of this encounter Visit Diagnoses Not on filedocumented in this encounter Care Teams Log Deck Tender Relationship Specialty Start Date End Date Janet Davey APRN PCP - General Family Medicine 07/13/20 [address] [place] [address] documented as of this encounter
--- OUTSIDE RECORDS SUMMARY | 2022-06-14 11:12 | XMS_ITS | Encounter Summary ---
:1965 Author Organization [place] [address] Care Team Providers Name Role Phone EdJanet mendez Isa GONCALVES Primary Care Provider Encounter Details Date Type Department Care Team Description 02/12/2022 Laboratory Appointment Lab 3L [facility] Hormone replacement [facility] therapy (HRT) [place] [address] Social History Tobacco Use Types [...] MD [facility] [address]MOLE[address] [place], [place] [address] (Wo rk) 07/13/2022 Office Visit Endocrinology Maile Hinojosa MD [facility] [address] [place], [place] [address] (Wo rk) 07/25/2022 Office Visit Pulmonology Tong Norman MD [facility] [place], [place] [address] (Wo rk) documented as of this encounter Procedures Procedure Name Priority Date/Time Associated Diagnosis Comme [facility] VENIPUNCTURE Routine 02/12/2022 8:35 AM Hormone replacement Results for this EDT therapy (HRT) procedure are in the results section. documented in this encounter Results Lipid Panel (Reflex Direct LDL) (02/12/2022 8:35 AM EDT) athologist Signature Chol, Total 205 mg/dL [facility] Comment: Lower Risk: <200 mg/dL Average Risk: 200-239 mg/dL Higher Risk: >bt=704 mg/dL Triglycerides 86 mg/dL [facility] Comment: Average Risk/Lower Risk: <150 mg/dL Borderline High Risk: 150-199 mg/dL High Risk: 200-499 mg/dL Very High Risk: >xz=913 mg/dL HDL 75 mg/dL [facility] Comment: Males: ?? Higher Risk: <40 mg/dL Females: ?? Higher Risk: <50 mg/dL LDL Cholesterol 113 mg/dL [facility] Comment: Lowest Risk: <100 mg/dL Lower Risk: 100-129 mg/dL Borderline High Risk: 130-159 mg/dL High Risk: 160-189 mg/dL Very High Risk: >lb=313 mg/dL Chol/HDL Ratio 2.7 ratio [facility] Lipid Interpretation See Note [facility] Comment: Lipid management should be guided by a p atient? s ASCVD risk, goals and preferences. ACC/AHA Guidelines recommend high intens ity statin if clinical ASCVD or LDL greater than or equal to 190 mg/dL. http://tinyurl.com/LXF-IBR-Lfqfyrhts Adults aged 40-75 with LDL 70-189 mg/dL should have their 10 year ASCVD risk estimated with the ACC/AHA ASCVD risk es timator http://tools.acc.org/OSLPH-Cmtf-Zerjxafj r/ Statin should be discussed if risk [...] Organization Address City/State/[place] [address] documented in this encounter Visit Diagnoses Diagnosis Hormone replacement therapy (HRT) documented in this encounter Care Teams Hand Decorator Relationship Specialty Start Date End Date Janet Davey APRN PCP - General Family Medicine 07/13/20 [address] [place] [address] documented as of this encounter
--- OUTSIDE RECORDS SUMMARY | 2022-06-14 11:12 | XMS_ITS | Encounter Summary ---
:1965 Author Organization [facility] [place] [address] Care Team Providers Name Role Phone Petar Janet Isa GONCALVES Primary Care Provider Encounter Details Date Type Department Care Team Description 01/03/2022 Telephone Obstetrics and Gynec ology at [facility] [place] [address] Social History Tobacco Use Types Packs/Day [...] Maile Hinojosa MD [facility] ENDOCRINOLOGY [place], [place] [address] (Wo rk) 07/13/2022 Office Visit Endocrinology Maile Hinojosa MD [facility] [address] [place], [place] [address] (Wo rk) 07/25/2022 Office Visit Pulmonology Tong Norman MD [facility] Dr Cristiane Lux [place], [place] [address] (Wo rk) documented as of this encounter Visit Diagnoses Not on filedocumented in this encounter Care Teams Insurance Verification Rep Relationship Specialty Start Date End Date Janet Davey APRN PCP - General Family Medicine 07/13/20 [address] [place] [address] documented as of this encounter
--- OUTSIDE RECORDS SUMMARY | 2022-06-14 11:12 | XMS_ITS | Encounter Summary ---
:1965 Author Organization [facility] [place] [address] Care Team Providers Name Role Phone EdJanet mendez Isa GONCALVES Primary Care Provider Encounter Details Date Type Department Care Team Description 05/03/2022 Telephone Pulmonology at [facility] [place] [address] Social History Tobacco Use Types Packs/Day [...] Hinojosa MD [facility] ENDOCRINOLOGY [place], [place] [address] (Wo rk) 07/13/2022 Office Visit Endocrinology Maile Hinojosa MD [facility] [address] [place], [place] [address] (Wo rk) 07/25/2022 Office Visit Pulmonology Tong Norman MD [facility] Pulmonary Medici ne [place], [place] [address] (Wo rk) documented as of this encounter Visit Diagnoses Not on filedocumented in this encounter Care Teams Kindergartner Relationship Specialty Start Date End Date Janet Davey APRN PCP - General Family Medicine 07/13/20 [address] [place] [address] documented as of this encounter
--- OUTSIDE RECORDS SUMMARY | 2022-06-14 11:12 | XMS_ITS | Clinical Summary ---
:1965 Author Organization [place] [address] Care Team Providers Name Role Phone Petar [...] mcg (0.1 %) into each nostril Aerosol, [place] twice a day galantamine (RAZADYNE) 12 mg [...] Lipids 02/12/2022. 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; Persistent dysp maría after COVID-19; Persistent fati marga after COVID-19 05/17/2022 Orders Only Urology Ferdinand Michael Jr., MD 05/17/2022 Orders Only Urology Ferdinand Michael Jr., MD 05/17/2022 Telephone Urology Therese Aponte CMA 05/09/2022 Transcribe Orders Primary Care Janet Davey APRN 05/03/2022 Telephone Pulmonology Nathalie Wilson 04/10/2022 Office Visit Urology Ferdinand Michael Jr., MD 04/10/2022 Hospital Encounter Radiology Ferdinand Michaelrol ithnereyda Vicente MD 03/28/2022 Episode Changes Infectious [...] MD [facility] [address] MARMOLE[address] [place], [place] [address] (Wo rk) 07/13/2022 Office Visit Endocrinology Maile Hinojosa MD [facility] [address] MARMO[address] [place], [place] [address] (Wo rk) 07/25/2022 Office Visit Pulmonology Tong Norman MD [facility] Pulmonary Mediceduardo ne [place], [place] [address] (Wo rk) Health Maintenance Due Date Last [...] procedure are i n the results section. BITUMASTIC APPLIER SCAN 03/26/2022 12:00 Res ults for this [...] (05/02/2022 12:00 AM EDT)Only the most recent of4 resultswithin the time period is included. Narrative [...] Electronically signed by: Lakeisha vieyra MD, Radiology [place] ([phone]), at 10:46 AM Thank you for letting us participate in the care of this patient. If you are a [facility] and have any questions regarding this report, please contact the number above. For patients who have ques tions, please contact the [facility] professio nal that requested your imaging first. ??Lakeisha Aiken, [facility] & Dept Chair - Rad Electronically Signed Final Report ?? 10:54 am Narrative 04/10/2022 10:55 AM EDT Renal ? (Signed Final 04/10/2022 10:54 am) PATIENT INFO: ID #: ? [id number] ?: ??[birth year] (56 yrs)(F) Name: ? JESSICA Charles GTZ ?Visit Date: 04/10/2022 10:06 am PERFORMED BY: Performed By: ? Mathew Prajapati RDMS Attending: ?Nelli GILL, Adalberto Rush. Referred By: ?FERDINAND MICHAEL JR Location: ? [place] SERVICE(S) PROVIDED: URETRO - Retroperitoneal Complete - IMG 3517 ? [id number] INDICATIONS: kidney stone surveillance. no stones on [...] 10:54 am ) PATIENT INFO: ID #: [id number] : [birth year] (56 y rs)(F) Name: JESSICA GTZ Visit Date: 04/10 10:06 am PERFORMED BY: Performed By: Cece Prajapati RDMS Attending: Lakeisha Aiken MD Referred By: FERDINAND MICHAEL JR Location: [place] SERVICE(S) PROVIDED: URETRO - Retroperitoneal Complete - IMG 3517 [id number] INDICATIONS: kidney stone surveillance. no stones on [...] Electronically signed by: Lakeisha vieyra MD, Radiology [place] ([phone]), at 10:46 AM Thank you for letting us participate in the care of this patient. If you are a [facility] and have any questions regarding this report, please contact the number above. For patients who have ques tions, please contact the [facility] professio nal that requested your imaging first. Lakeisha Aiken, [facility] & Dept C hair - Rad Electronically Signed Final Report 04/10 10:54 am Ferdinand Michael Jr., MD IMG US GEN ORDERABLES SCAN DOC: BITUMASTIC APPLIER (03/26/2022 12:00 AM EDT) Narrative This result has an attachment that is no t available. Unknown MEDIA MGR SCAN EXT ORDR/RSLT from Last 3 Months Insurance Payer Benefit Plan Subscriber ID Effective Dates Phone Address Type / Group [facility] [place] [facility] [id number] 2018-Jeanie [phone] [address] [facility] [address] [place] [address] Advance Directives Latest Code Status on File Code Status Date Activated Date Inactivated Comments Full Code 04/18/2017 12:11 PM 04/18/2017 5:24 PM Does patient have capacity to make decision: Yes Care Teams Lead Ramp Service Man Relationship Specialty Start Date End Date Janet Davey, DIRECTOR CORPORATE SALES PCP - General Family Medicine 07/13/20 [address] [place] [address]
--- OUTSIDE RECORDS SUMMARY | 2022-06-14 11:12 | XMS_ITS | Encounter Summary ---
:1965 Author Organization [place] [address] Care Team Providers Name Role Phone Janet Davey Isa GONCALVES Primary Care Provider Encounter Details Date Type Department Care Team Description 05/17/2022 Orders Only Urology at [facility] Luis Michael Jr., [place] [facility] [place] [phone] UROLOGY DEPT. [phone] [place], [place] [address] (Wo rk) Social History Tobacco [...] Maile Hinojosa MD [facility] [address] [place]EL [place], [place] [address] (Wo rk) 07/13/2022 Office Visit Endocrinology Maile Hinojosa MD [facility] ENDOCRINOLOGY [place], [place] [address] (Wo rk) 07/25/2022 Office Visit Pulmonology Tong Norman MD [facility] Pulmonary Medici [place] [address] (Wo rk) documented as of this encounter Visit Diagnoses Not on filedocumented in this encounter Care Teams Spinner Operator Relationship Specialty Start Date End Date Janet Davey APRN PCP - General Family Medicine 07/13/20 [address] [place] [address] documented as of this encounter
--- OUTSIDE RECORDS SUMMARY | 2022-06-14 11:12 | XMS_ITS | Encounter Summary ---
:1965 Author Organization [facility] [place] [address] Care Team Providers Name Role Phone Janet Davey APRN Primary Care Provider Encounter Details Date Type Department Care Team Description 05/31/2022 TH Visit Obstetrics and Desiree Zabala Hot flas hes; (TeleHealth) Gynecology at [facility] MD MICHEL PATIENT NOT SEEN [place], [place] OBSTETRICS AND [address] GYNECOLOGY [phone] [place], [place] [address] Social History Tobacco Use Types [...] in [place]__ [place]__[place]__ [place]__ If not on myD, working on signing up for my DH Confirmed has completed any pre-visit questionnaires If has not received required previsit questionnaires, send via [facility] ___Reviewed medications, allergies, pharmacy, pain/depression, education ___Documented height/weight/LMP Other information or concerns: Desiree Zabala MD - 05/31/2022 2:20 PM EDT HIDE GRADER Follow Up Visit Reason for Visit: Stacy is a 56 y.o. post menopausal female who presents for follow up of HRT and hotflashes. History of Present Illness: Patient reports hotflashes are well controlled and she has not had any bleeding since our last visit. Juan C VELAZQUEZ was doing better but then went back to work and she is back on more supplemental oxygen Body is starting to adjust and she is learning how to do things that require using less oxygen TVUS at last visit 02/12/2022: IMPRESSION ?? 1. Anteverted uterus with central endometrial echo complex measuring 4 mm in diameter which is equivocal for endometrial biopsy. 2. An IUD is in normal position within the endometrial cavity. 3. Heterogeneous myometrium with a subendometrial/myometrial cyst suggesting adenomyosis. 4. Subcentimeter right ovarian simple cyst. No follow- up required. 5. Normal left ovary. Gynecologic History: LMP: No LMP recorded. (Menstrual status: IUD). Patient Active Problem List Diagnosis Date Noted ??? Post-COVID syndrome 05/29/2022 ??? *History of COVID-19 05/29/2022 ??? Forgetfulness 05/29/2022 ??? Hormone replacement therapy (postmenopausal) 02/16/2022 ??? Hot flashes, menopausal 11/05/2021 ??? Asthma 12/07/2010 ??? Nephrolithiasis 12/07/2010 ??? Raynaud's disease 12/07/2010 ??? Migraines 12/07/2010 Stacy is a 56 y.o. post menopausal female who presents for follow up of HRT and hotflashes. Doing well RTC in 6 months Desiree Zabala MD 05/31/2022 2:58 PM documented in this encounter Plan of Treatment Upcoming Encounters Date Type Specialty Care Team Description 07/13/2022 Appointment Radiology Maile Hinojosa MD [facility] ENDOCRINOLOGY [place], [place] [address] (Wo rk) 07/13/2022 Office Visit Endocrinology Maile Hinojosa MD [facility] ENDOCRINOLOGY [place], [place] [address] (Wo rk) 07/25/2022 Office Visit Pulmonology Tong Norman MD [facility] Pulmonary Medici [place], [place] [address] (Wo rk) documented as of this encounter Visit Diagnoses Diagnosis Hot flashes Symptomatic menopausal or female climact wendy states DH PATIENT NOT SEEN documented in this encounter Care Teams Electrical Plumbing Supervisor Relationship Specialty Start Date End Date Janet Davey APRN PCP - General Family Medicine 07/13/20 [address] [place] [address] documented as of this encounter
--- OUTSIDE RECORDS SUMMARY | 2022-06-14 11:12 | XMS_ITS | Encounter Summary ---
:1965 Author Organization [facility] [place] [address] Care Team Providers Name Role Phone Janet Davey APRN Primary Care Provider Encounter Details Date Type Department Care Team Description 06/12/2022 Telephone Urology at [facility] [place] [address] Social History Tobacco Use Types Packs/Day Years Used Date Never Smoker Smokeless Tobacco: Never Used Alcohol Use Standard Drinks/Week Comments No 0 (1 standard drink = 0.6 oz pure alcoho l) Sex Assigned at Date Recorded Female 01/29/2022 12:45 PM EDT documented as of this encounter Miscellaneous Notes Telephone Encounter - Michael Rubio - 06/12/2022 4:23 PM EDT Pt is calling asking to do a 24-hr urine test to see why she is making these stones as she will change her diet as needed. Evidently, in previous messages with nursing and Dr. Michael, it was suggested that she have a phone visit but she lives in [place] and Dr. Michael cannot do it in that state. She doesn't want to have to come all the way down for an appt; she just wants to figure out why she is making stones and would like to do a 24-hr urine. Will send to Dr. Michael for his input. documented in this encounter Plan of Treatment Upcoming Encounters Date Type Specialty Care Team Description 07/13/2022 Appointment Radiology Maile Hinojosa MD [facility] DR [address] [place], [place] [address] (Wo rk) 07/13/2022 Office Visit Endocrinology Maile Hinojosa MD [facility] DR [address] [place], [place] [address] (Wo rk) 07/25/2022 Office Visit Pulmonology Tong Norman MD [facility] Pulmonary Medici ne [place], [place] [address] (Wo rk) documented as of this encounter Visit Diagnoses Not on filedocumented in this encounter Care Teams Dice Table Operator Relationship Specialty Start Date End Date Janet Davey, STEEL MOLDER PCP - General Family Medicine 07/13/20 [address] [place] [address] documented as of this encounter
--- OUTSIDE RECORDS SUMMARY | 2022-06-14 11:12 | XMS_ITS | Encounter Summary ---
:1965 Author Organization [facility] [address] Care Team Providers Name Role Phone Petar Janet Moss APRN Primary Care Provider Reason for Visit Reason Comments Follow-up Encounter Details Date Type Department Care Team Description 02/12/2022 Office Visit Obstetrics and Desiree Zabala, Raissa flas hes; Gynecology at [facility] [place] [place] MD Hormone replacement therapy (postmenopau yanelis) [place], [place] OBSTETRICS [place] [address] GYNECOLOGY [phone] [place], [place] [address] Social History Tobacco Use Types [...] Zabala MD - 02/12/2022 9:20 AM EDT TECHNOLOGY SERVICES MANAGER Follow Up Visit Reason for Visit: Stacy [...] History: Procedure Laterality Date ??? CREATED BY [employer] EJosephSJosephWGuido(MSUROL) Procedure Date: 01/16/2008 ??? KNEE SURGERY 03/01/14 Right knee; patella surgery ??? LITHOTRIPSY ? ? PRO CYSTOURETHROSCOPY, FULGUR <.5CM LESN N/A 04/18/2017 CYSTO, FULGURATION\BLADDER LESION\W\WO BX\LESS THAN 0.5CM (WRVU 4.05) performed by Luis Michael Jr., MD at [facility] MAIN OR ??? SHOULDER SURGERY Right [...] azelastine (ASTELIN) 137 mcg (0.1 %) Aerosol, [place] instill 1 spray into each nostril twice [...] MD [facility] DR [place] [place], [place] [address] (Wo rk) 07/13/2022 Office Visit Endocrinology Maile Hinojosa MD [facility] [address] [place] [place], [place] [address] (Wo rk) 07/25/2022 Office Visit Pulmonology Tong Norman MD [facility] Pulmonary Medici [place], [place] [address] (Wo rk) documented as of this encounter Visit Diagnoses Diagnosis Hot flashes Symptomatic menopausal or female climact wendy states Hormone replacement therapy (postmenopau yanelis) Need for prophylactic hormone replacemen t therapy (postmenopausal) documented in this encounter Care Teams Dog Walker Relationship Specialty Start Date End Date Janet Davey APRN PCP - General Family Medicine 07/13/20 [address] [place] [address] documented as of this encounter
--- OUTSIDE RECORDS SUMMARY | 2022-06-14 11:12 | XMS_ITS | Encounter Summary ---
:1965 Author Organization [facility] [place] [address] Care Team Providers Name Role Phone Petar Janet Isa GONCALVES Primary Care Provider Encounter Details Date Type Department Care Team Description 04/10/2022 Hospital Encounter Ultrasound at [facility] [place] Ferdinand Michael Nephrolithiasis [facility] [place] [address] UROLOGY DEPT. [phone] [place], [place] [address] Social History Tobacco Use Types [...] spray 0 2016 mcg (0.1 %) Aerosol, [place] into each nostril twice a day SUMAtriptan [...] Appointment Radiology Maile Hinojosa MD [facility] ENDOCRINOLOGY [place], [place] [address] (Wo rk) 07/13/2022 Office Visit Endocrinology Maile Hinojosa MD [facility] ENDOCRINOLOGY [place], [place] [address] (Wo rk) 07/25/2022 Office Visit Pulmonology Tong Norman MD [facility] Pulmonary Medici ne [place], [place] [address] (Wo rk) documented as of this encounter [...] Electronically signed by: Lakeisha vieyra MD, Radiology [place] ([phone]), at 10:46 AM Thank you for letting us participate in the care of this patient. If you are a [facility] and have any questions regarding this report, please contact the number above. For patients who have ques tions, please contact the [facility] professio nal that requested your imaging first. ??Lakeisha Aiken, CONNIE CLEANER [facility] & Dept Chair - Rad Electronically Signed Final Report ?? 10:54 am Narrative 04/10/2022 10:55 AM EDT Renal ? (Signed Final 04/10/2022 10:54 am) PATIENT INFO: ID #: ? [id number] ?: ??[birth year] (56 yrs)(F) Name: ? JESSICA GTZ ?Visit Date: 04/10/2022 10:06 am PERFORMED BY: Performed By: ? Alo GARNER, Mathew lópez Attending: ?Nelli GILL, Adalberto Beltran Referred By: ?FERDINAND MICHAEL JR Location: ? [place] SERVICE(S) PROVIDED: URETRO - Retroperitoneal Complete - [facility] 3517 ? [id number] INDICATIONS: kidney stone surveillance. no stones on [...] 10:54 am ) PATIENT INFO: ID #: [id number] : [birth year] (56 y rs)(F) Name: JESSICA GTZ Visit Date: 04/10 10:06 am PERFORMED BY: Performed By: Cece Prajapati RDMS Attending: Lakeisha Aiken MD Referred By: FERDINAND MICHAEL JR Location: [place] SERVICE(S) PROVIDED: URETRO - Retroperitoneal Complete - [facility] 3517 [id number] INDICATIONS: kidney stone surveillance. no stones on [...] Electronically signed by: Lakeisha vieyra MD, Radiology [place] ([phone]), at 10:46 AM Thank you for letting us participate in the care of this patient. If you are a [facility] and have any questions regarding this report, please contact the number above. For patients who have ques tions, please contact the [facility] professio nal that requested your imaging first. Lakeisha Aiken, [facility] & Dept C hair - Rad Electronically Signed Final Report 04/10 10:54 am Ferdinand Michael Jr., MD IMG US GEN ORDERABLES documented in this encounter Visit Diagnoses Diagnosis Nephrolithiasis Calculus of kidney documented in this encounter Care Teams Recreation Facility Attendant Relationship Specialty Start Date End Date Janet Davey APRN PCP - General Family Medicine 07/13/20 [address] [place] [address] documented as of this encounter
--- OUTSIDE RECORDS SUMMARY | 2022-06-14 11:12 | XMS_ITS | Encounter Summary ---
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 Juan Dotson MD [facility] Pulmonary Rehab [facility] [place] [address] [place] [address] Referral ID Status Reason Start Expiration Visits Visits Date Date Requested Authorized [id number] Authorized Evaluate and 05/29/2022 05/29/2023 36 36 Treat Reason for Visit Consultation (Routine) - Authorized Specialty Diagnoses / Procedures Referred By Contact Refer red To Contact Infectious Diseases Diagnoses Post covid-19 condition, unspecified Janet Davey APRN [facility] 5[facility] [address] [place] [address] [place] [address] Phone: Fax: Referral ID Status Reason Start Expiration Visits Visits Date Date Requested Authorized [id number] Authorized Consult, 05/09/2022 05/09/2023 12 12 Test & Treat PCP Updated and/or Approved Encounter Details Date Type Department Care Team Description 05/29/2022 TH Visit Infectious Disease [place], Post-COVI D syndrome (Primary Dx); (TeleHealth) at [facility] [place] Juan *History of COVID-19; [facility] Post-COVI D chronic cough; [facility] DR Post-COVID chronic dyspnea; [place], [place] INFECTIOUS Persistent dysp maría after COVID-19; [address] DISEASE Persistent fatigue after COVID-19 [place], [place] [address] Social History Tobacco Use Types [...] stress test normal, 02/2022 Present illness: Ms. 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 The 10-year ASCVD risk score (Brooker SUE Jr., et al., 2013) is: 1.3% [...] azelastine (ASTELIN) 137 mcg (0.1 %) Aerosol, [place] instill 1 spray into each nostril twice [...] (TeleHealth) from 05/29/2022 in Infectious Disease at [facility] Weight 68.9 kg (152 lb) Height 172.7 [...] of the fact that her appointment in [place] is not till August, I took the liberty of referring her to our Pulmonary department for rehabilitation (although Ms. Albrightmay not be able to attend these visits because of her distance from [facility] We reviewed the fact thatphysical therapy for [...] informed Ms. Albright about our research study, [facility] Post-Acute COVID Syndrome Clinic Registry. I [...] Hinojosa MD [facility] DR MARMOLEJO [place], [place] [address] (Wo rk) 07/13/2022 Office Visit Endocrinology Maile Hinojosa MD [facility] DR [address] [place], [place] [address] (Wo rk) 07/25/2022 Office Visit Pulmonology Tong Norman MD [facility] Pulmonary Medici [place], [place] [address] (Wo rk) Scheduled Referrals Name [...] COVID-19 documented in this encounter Care Teams Aquatic Biologist Relationship Specialty Start Date End Date Jnaet Davey APRN PCP - General Family Medicine 07/13/20 [address] [place] [address] documented as of this encounter
--- OUTSIDE RECORDS SUMMARY | 2022-06-14 11:12 | XMS_ITS | Encounter Summary ---
:1965 Author Organization [facility] [place] [address] Care Team Providers Name Role Phone Janet Davey TRAINING ASSISTANT Primary Care Provider Encounter Details Date Type Department Care Team Description 05/09/2022 Transcribe Orders eDH Incoming Referra ls Janet Davey APRN [phone] [address] [place], [place] [id number] (Wo rk) Social History Tobacco Use Types [...] Hinojosa MD [facility] ENDOCRINOLOGY [place], [place] [address] (Wo rk) 07/13/2022 Office Visit Endocrinology Maile Hinojosa MD [facility] ENDOCRINOLOGY [place], [place] [address] (Wo rk) 07/25/2022 Office Visit Pulmonology Tong Nroman MD [facility] er Pulmonary Medici [place], [place] [address] (Wo rk) documented as of this encounter Visit Diagnoses Not on filedocumented in this encounter Care Teams Office Machinery Or Equipment Installer Relationship Specialty Start Date End Date Janet Davey APRN PCP - General Family Medicine 07/13/20 [address] [place] [address] documented as of this encounter
--- OUTSIDE RECORDS SUMMARY | 2022-06-14 11:12 | XMS_ITS | Encounter Summary ---
:1965 Author Organization [facility] [place] [address] Care Team Providers Name Role Phone Janet Davey Isa GONCALVES Primary Care Provider Encounter Details Date Type Department Care Team Description 01/08/2022 Ancillary Procedure Radiology Library at Tong Norman MD [facility] [place] [address] [place] [address] [phone] (Wo rk) Social History Tobacco Use Types [...] MD [facility] ER ENDOCRINOLOGY [place], [place] [address] (Wo rk) 07/13/2022 Office Visit Endocrinology Maile Hinojosa MD [facility] ENDOCRINOLOGY [place], [place] [address] (Wo rk) 07/25/2022 Office Visit Pulmonology Tong Norman MD [facility] er Pulmonary Mediceduardo [place], [place] [address] (Wo rk) documented as of [...] Organization Address City/State/ZIP Code Phon e Number [place], [place] documented in this encounter Visit Diagnoses Not on filedocumented in this encounter Care Teams Sludge Control Attendant Relationship Specialty Start Date End Date Janet Davey APRN PCP - General Family Medicine 07/13/20 [address] [place] [address] documented as of this encounter
--- OUTSIDE RECORDS SUMMARY | 2022-06-14 11:12 | XMS_ITS | Encounter Summary ---
:1965 Author Organization [place] [address] Care Team Providers Name Role Phone Janet Davey Isa GONCALVES Primary Care Provider Encounter Details Date Type Department Care Team Description 03/28/2022 Episode Changes Infectious Disease at [facility], Nisha costello [facility] Victor Manuel cifuentes [facility] [place] [address] INFECTIOUS DISEASE [phone] [place], [place] [address] (Wo rk) Social History Tobacco [...] MD [facility] ER ENDOCRINOLOGY [place], [place] [address] (Wo rk) 07/13/2022 Office Visit Endocrinology Maile Hinojosa MD [facility] ENDOCRINOLOGY [place], [place] [address] (Wo rk) 07/25/2022 Office Visit Pulmonology Tong Norman MD [facility] er Pulmonary Medici [place], [place] [address] (Wo rk) documented as of this encounter Visit Diagnoses Not on filedocumented in this encounter Care Teams Data Center Manager Relationship Specialty Start Date End Date Janet Davey, CLERK STENOGRAPHER PCP - General Family Medicine 07/13/20 [address] [place] [address] documented as of this encounter
--- OUTSIDE RECORDS SUMMARY | 2022-06-14 11:12 | XMS_ITS | Encounter Summary ---
:1965 Author Organization [facility] [place] [address] Care Team Providers Name Role Phone Janet Davey SACHA Primary Care Provider Reason for Visit Reason Comments Nephrolithiasis Encounter Details Date Type Department Care Team Description 04/10/2022 Office Visit Urology at [facility] Ferdinand Michael Jr., Nephrolithiasis [facility] [place] [address] [facility] [phone] UROLOGY DEPT. [place], [place] [address] (Wo rk) Social History Tobacco [...] renal stone Otherwise within normal limits ?? Electronically signed by: Lakeisha Aiken MD, [facility] ([phone]), at 04/10/2022 Impression/Plan: Doing well, left-sided 6 mm inferior [...] MD STAFF ADDENDUM: I saw and examined tSacy Albright with Dr. Dale, have independently reviewed [...] Maile Hinojosa MD [facility] DR [address] [place], [place] [address] (Wo rk) 07/13/2022 Office Visit Endocrinology Maile Hinojosa MD [facility] [address] [place], [place] [address] (Wo rk) 07/25/2022 Office Visit Pulmonology Tong Norman MD [facility] Pulmonary Medici ne [place], [place] [address] (Wo rk) Scheduled Orders Name Type Priority Associated Diagnoses Order S chedule US Retroperitoneal Complete Imaging Routine Nephrolithias is Expected: 04/10/2023, Exp ires: 04/10/2023 documented as of this encounter Visit Diagnoses Diagnosis Nephrolithiasis Calculus of kidney documented in this encounter Care Teams Field Advisor Relationship Specialty Start Date End Date Janet Davey APRN PCP - General Family Medicine 07/13/20 [address] [place] [address] documented as of this encounter
--- OUTSIDE RECORDS SUMMARY | 2022-06-14 11:12 | XMS_ITS | Encounter Summary ---
:1965 Author Organization [facility] [address] Care Team Providers Name Role Phone Edvanessa Janet Vanessa GONCALVES Primary Care Provider Encounter Details Date Type Department Care Team Description 02/12/2022 Hospital Encounter Ultrasound at [facility] uLdy Grace MD Vaginal bleeding [facility] [address] [place] OBSTETRICS [place] [address] GYNECOLOGY [phone] [place], [place] [address] Social History Tobacco Use Types [...] spray 0 2016 mcg (0.1 %) Aerosol, [place] into each nostril twice a day SUMAtriptan [...] Description 07/13/2022 Appointment Radiology Maile Hinojosa MD [facility] DR [facility] [facility] [place], [place] [address] (Wo silva) 07/13/2022 Office Visit Endocrinology Maile Hinojosa MD [facility] DR [place], [place] [address] (Rahul ascencio) 07/25/2022 Office Visit Pulmonology Tong Norman MD [facility] er Pulmonary Medici [place], [place] [address] ( rk) documented as of [...] ovary. Electronically signed by: Weston mendosa MD, [facility] ([phone]), at 9:24 AM Thank you for letting us participate in the care of this patient. If you are a [facility] er and have any questions regarding this report, please contact the number above. For patients who have ques tions, please contact the [facility] professio nal that requested your imaging first. ? Weston Martin, Staff Physician Electronically Signed Final Report ?? 09:31 am Narrative 02/12/2022 9:31 AM EDT Gynecological Report ?(Signed Final 02/12/2022 09:31 am) PATIENT INFO: ID #: ? [id number] ?: ??[birth year] (56 yrs)(F) Name: ? JESSICA GTZ ?Visit Date: 02/12/2022 07:57 am PERFORMED BY: Performed By: ? Desiree Burrell RDMS Attending: ?Veronica GILL, Butch Maloney Referred By: ?LUDY GRACE Location: ? [place] SERVICE(S) PROVIDED: UTV - Transvaginal - [id number] ?[id number] U3D - ??3D rendering with interpretatio n - [id number] ? [id number] INDICATIONS: vaginal bleeding, IUD in place TECHNIQUE/SCAN [...] 01/25 09:31 am) PATIENT INFO: ID #: [id number] : [birth year] (56 y rs)(F) Name: JESSICA GTZ Visit Date: 02/12 07:57 am PERFORMED BY: Performed By: Desiree Burrell RDMS Attending: Weston Martin MD Referred By: LUDY GRACE Location: [place] SERVICE(S) PROVIDED: UTV - Transvaginal - [id number] U3D - 3D rendering with interpretation - [id number] INDICATIONS: vaginal bleeding, IUD in place TECHNIQUE/SCAN [...] Electronically signed by: Weston mendosa MD, Radiology [place] ([phone]), at 9:24 AM Thank you for letting us participate in the care of this patient. If you are a [facility] and have any questions regarding this report, please contact the number above. For patients who have ques tions, please contact the [facility] professio nal that requested your imaging first. Weston Martin, Staff Physician Electronically Signed Final Report 02/12 09:31 am Ludy Grace MD IMG PELVIC ORDERABLES documented in this encounter Visit Diagnoses Diagnosis Vaginal bleeding Other specified noninflammatory disorder of vagina documented in this encounter Care Teams Steel Handler Relationship Specialty Start Date End Date Janet Davey, [employer] PCP - General Family Medicine 07/13/20 [address] [place] [address] documented as of this encounter
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
--- OUTSIDE RECORDS SUMMARY | 2022-06-14 11:13 | XMS_ITS | Encounter Summary ---
:1965 Author Organization [facility] [place] [address] Care Team Providers Name Role Phone Petar Janet Isa GONCALVES Primary Care Provider Encounter Details Date Type Department Care Team Description 06/30/2019 Hospital Encounter Ultrasound at [facility] Ferdinand Pen[place] History of [facility] MD Jules nephrolithiasis [facility] [address] UROLOGY DEPT. [phone] [place] [address] Social History Tobacco Use Types Packs/Day Years [...] (0.1 %) Aerosol, each nostril twice a [place] day SUMAtriptan (IMITREX) as needed for 1 [...] 05/01/2016 05/01/2021 20 mcg/24 hr (5 years) [id number] IUD cetirizine (ZYRTEC) 10 Take 10 mg by mouth 0 02/12/2022 mg tablet daily. tacrolimus (PROTOPIC) 1 Appl(s) Top Twice 0 08/2402/12/2022 0.1 % ointment daily KETOCONAZOLE (NIZORAL Apply topically. 0 08/24/20 10 02/12/2022 TOP) documented as of this encounter Plan of Treatment Upcoming Encounters Date Type Specialty Care Team Description 07/13/2022 Appointment Radiology Maile Hinojosa MD [facility] ENDOCRINOLOGY [place], [place] [address] (Wo rk) 07/13/2022 Office Visit Endocrinology Maile Hinojosa MD [facility] DR MARMO[address] [place], [place] [address] (Wo rk) 07/25/2022 Office Visit Pulmonology Tong Norman MD [facility] Pulmonary Medici ne [place], [place] [address] (Wo rk) documented as of this encounter [...] Electronically signed by: Celine zee MD, Radiology [place] ([phone]), at 3:56 PM ?Celine Anna, Staff Physician Electronically Signed Final Report ?? 04:04 pm Narrative 06/30/2019 4:05 PM EST Renal ? (Signed Final 06/30/2019 04:04 pm) PATIENT INFO: ID #: ? [id number] ?: ??[birth year] (53 yrs) Name: ? JESSICA Melvin GTZ ?Visit Date: 06/30/2019 03:50 pm PERFORMED BY: Performed By: ? Humberto Donnelly RDMS Attending: ?Shoshana GILL, There J. Referred By: ?FERDINAND PENNINGTON JR Location: ? [place] SERVICE(S) PROVIDED: ??URETRO - Retroperitoneal Complete - I [id number] ? [id number] INDICATIONS: ??? stones COMPARISON: Ultrasound: Renal / [...] 04:04 pm ) PATIENT INFO: ID #: [id number] : 61 (53 y rs) Name: JESSICA GTZ Visit Date: 06/30 03:50 pm PERFORMED BY: Performed By: Humberto Donnelly RDMS Attending: Celine Anna MD Referred By: FERDINAND PENNINGTON Location: [place] SERVICE(S) PROVIDED: URETRO - Retroperitoneal Complete - [facility] [id number] INDICATIONS: ? stones COMPARISON: Ultrasound: Renal / [...] below. Electronically signed by: Celine zee MD, [facility] ([phone]), at 3:56 PM Celine Anna, Staff Physician Electronically Signed Final Report 06/30 04:04 pm Ferdinand [place] Jr., MD IMG GEN ORDERABLES documented in this encounter Visit Diagnoses Diagnosis History of nephrolithiasis Personal history of urinary calculi documented in this encounter Care Teams Exceptional Children Teacher Relationship Specialty Start Date End Date Janet Davey APRN PCP - General Family Medicine 06/23/18 07/12/20 [address] [place] [address] documented as of this encounter
--- OUTSIDE RECORDS SUMMARY | 2022-06-14 11:13 | XMS_ITS | Encounter Summary ---
:1965 Author Organization [facility] [place] [address] Care Team Providers Name Role Phone Janet Davey Isa GONCALVES Primary Care Provider Encounter Details Date Type Department Care Team Description 09/25/2021 Orders Only Endocrinology at [facility] Maile Mccurdy MD Hypercalciuria 

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
--- OUTSIDE RECORDS SUMMARY | 2022-06-14 11:13 | XMS_ITS | Encounter Summary ---
:1965 Author Organization [facility] [place] [address] Care Team Providers Name Role Phone Petar Janet Isa GONCALVES Primary Care Provider Reason for Referral Diagnostic Test (Routine) - Closed Specialty Diagnoses / Procedures Referred By Contact Refer red To Contact Radiology Diagnoses Osteoporosis, unspecified osteoporosis type, unspecified pathological fracture presence Cuate Hall MD [facility] Rad Xray Procedures DXA Central Spine, Hip, and/or Whole Body (Generic) [facility] [address] [place] [facility] [place] [address] [place] [address] Referral ID Status Reason Start Date Expiration Date Visits V isits Requested Authorized [id number] Closed Specialty 03/14/2020 09/14/2021 1 1 Service Requested Reason for Visit Diagnostic Test (Routine) - Closed Specialty Diagnoses / Procedures Referred By Contact Refer red To Contact Radiology Diagnoses Osteoporosis, unspecified osteoporosis type, unspecified pathological fracture presence Cuate Hall MD [facility] Rad Xray Procedures DXA Central Spine, Hip, and/or Whole Body (Generic) [facility] [address] [place] [facility] [place] [address] [place] [address] Referral ID Status Reason Start Date Expiration Date Visits V isits Requested Authorized [id number] Closed Specialty 03/14/2020 09/14/2021 1 1 Service Requested Encounter Details Date Type Department Care Team Description 07/07/2020 Hospital Encounter XRay at [facility] Cuate Hall, Osteoporosis, [address] GILL unspecified [place], [place] ONE [place] [place], [address] funes [phone] ENDOCRINOLOGY pathological [place] presence [address] Social History Tobacco Use Types Packs/Day Years [...] (0.1 %) Aerosol, each nostril twice a [place] day SUMAtriptan (IMITREX) as needed for 1 [...] 05/01/2016 05/01/2021 20 mcg/24 hr (5 years) [id number] IUD cetirizine (ZYRTEC) 10 Take 10 mg by mouth 0 02/12/2022 mg tablet daily. tacrolimus (PROTOPIC) 1 Appl(s) Top Twice 0 08/2402/12/2022 0.1 % ointment daily KETOCONAZOLE (NIZORAL Apply topically. 0 08/24/20 10 02/12/2022 TOP) documented as of this encounter Plan of Treatment Upcoming Encounters Date Type Specialty Care Team Description 07/13/2022 Appointment Radiology Maile Hinojosa MD [facility] ENDOCRINOLOGY [place], [place] [address] (Wo rk) 07/13/2022 Office Visit Endocrinology Maile Hinojosa MD [facility] ENDOCRINOLOGY [place], [place] [address] (Wo rk) 07/25/2022 Office Visit Pulmonology Tong Norman MD [facility] Dr Cristiane Lux [place], [place] [address] (Wo rk) documented as of [...] measurements a nd plots are available in [facility] under the imaging tab. Paper copies will be sent to providers without - access. If you have received this report without [facility] data sheet and do not have access to [facility], please contact Radiology [facility] at [phone] Saturday thru Saturday 8am-4pm. Thank you for [...] This is available through an interactive web-based [employer] (http://[email or web address].uk/FRAX/) and can be used to [...] measurements a nd plots are available in [employer] under the imaging tab. Paper copies will be sent to providers without E- access. If you have received this report without e data sheet and do not have access to [place], please contact Radiology [facility] at [phone] Saturday thru Saturday 8am-4pm. Thank you for letting us participate in the care of this patient. For questions regarding this report, please contact e number below. Cuate Hall MD IMG DEXA ORDERABLES documented in this encounter Visit Diagnoses Diagnosis Osteoporosis, unspecified osteoporosis t ype, unspecified pathological fracture presence documented in this encounter Care Teams Service Mechanic Relationship Specialty Start Date End Date Janet Davey APRN PCP - General Family Medicine 06/23/18 07/12/20 [address] [place] [address] documented as of this encounter
--- OUTSIDE RECORDS SUMMARY | 2022-06-14 11:13 | XMS_ITS | Encounter Summary ---
:1965 Author Organization [facility] [place] [address] Care Team Providers Name Role Phone Janet Davey APRN Primary Care Provider Reason for Visit Reason Comments Medication Refill Encounter Details Date Type Department Care Team Description 09/16/2019 [facility] Victor Manuel cifuentes OBSTETRICS [place] [address] [place] [address] [phone] (Wo rk) Social History Tobacco Use Types [...] [facility] [address]MO[address] [place], [place] [address] (Wo rk) 07/13/2022 Office Visit Endocrinology Maile Hinojosa MD [facility] [address] [place], [place] [address] (Wo rk) 07/25/2022 Office Visit Pulmonology Tong Norman MD [facility] Pulmonary Medici [place], [place] [address] (Wo rk) documented as of this encounter Visit Diagnoses Not on filedocumented in this encounter Care Teams Pipe Joints Supervisor Relationship Specialty Start Date End Date Janet Davey, HEAD OF DATA PCP - General Family Medicine 06/23/18 07/12/20 [address] [place] [address] documented as of this encounter
--- OUTSIDE RECORDS SUMMARY | 2022-06-14 11:13 | XMS_ITS | Encounter Summary ---
:1965 Author Organization [facility] [place] [address] Care Team Providers Name Role Phone Janet Davey APRN Primary Care Provider Encounter Details Date Type Department Care Team Description 10/21/2020 Hospital Encounter Mammography/DXA at Janet Davey, En counter for [facility] screening mammogram [facility] [address] [facility] [address], [address] [place] [address] Social History Tobacco Use Types Packs/Day Years [...] (0.1 %) Aerosol, each nostril twice a [place] day SUMAtriptan (IMITREX) as needed for 1 [...] 05/01/2016 05/01/2021 20 mcg/24 hr (5 years) [id number] IUD cetirizine (ZYRTEC) 10 Take 10 mg by mouth 0 02/12/2022 mg tablet daily. tacrolimus (PROTOPIC) 1 Appl(s) Top Twice 0 08/2402/12/2022 0.1 % ointment daily KETOCONAZOLE (NIZORAL Apply topically. 0 08/24/20 10 02/12/2022 TOP) documented as of this encounter Plan of Treatment Upcoming Encounters Date Type Specialty Care Team Description 07/13/2022 Appointment Radiology Maile Hinojosa MD [facility] ENDOCRINOLOGY [place], [place] [address] (Wo rk) 07/13/2022 Office Visit Endocrinology Maile Hinojosa MD [facility] ENDOCRINOLOGY [place], [place] [address] (Wo rk) 07/25/2022 Office Visit Pulmonology Tong Norman MD [facility] Pulmonary Medici ne [place], [place] [address] (Wo rk) documented as of [...] ? Electronically signed by: Shane Burciaga MD, [facility] ([phone]), at 10/24/2020 10:53 AM Janet Davey APRN IMG MAMMO ORDERABLES documented in this encounter Visit Diagnoses Diagnosis Encounter for screening mammogram for br east cancer documented in this encounter Care Teams Instructor Warper Relationship Specialty Start Date End Date Janet Davey APRN PCP - General Family Medicine 07/13/20 [address] [place] [address] documented as of this encounter
--- OUTSIDE RECORDS SUMMARY | 2022-06-14 11:13 | XMS_ITS | Encounter Summary ---
:1965 Author Organization [facility] [place] [address] Care Team Providers Name Role Phone Janet Davey APRN Primary Care Provider Encounter Details Date Type Department Care Team Description 10/20/2019 Hospital Encounter Mammography/DXA at Janet Davey, En counter for [facility] ASSEMBLER SURGICAL GARMENT screening mammogram [place] [address] [address] [facility] [address], [address] [place] [id number] Social History Tobacco Use Types Packs/Day Years [...] (0.1 %) Aerosol, each nostril twice a [place] day SUMAtriptan (IMITREX) as needed for 1 [...] 05/01/2016 05/01/2021 20 mcg/24 hr (5 years) [id number] IUD cetirizine (ZYRTEC) 10 Take 10 mg by mouth 0 02/12/2022 mg tablet daily. tacrolimus (PROTOPIC) 1 Appl(s) Top Twice 0 08/2402/12/2022 0.1 % ointment daily KETOCONAZOLE (NIZORAL Apply topically. 0 08/24/2002/12/2022 TOP) documented as of this encounter Plan of Treatment Upcoming Encounters Date Type Specialty Care Team Description 07/13/2022 Appointment Radiology Maile Hinojosa MD [facility] ENDOCRINOLOGY [place], [place] [address] (Wo rk) 07/13/2022 Office Visit Endocrinology Maile Hinojosa MD [facility] ENDOCRINOLOGY [place], [place] [address] (Wo rk) 07/25/2022 Office Visit Pulmonology Tong Noramn MD One [facility] Pulmonary Medici ne [place], [place] [address] (Wo rk) documented as of [...] cancer documented in this encounter Care Teams Clay Artisan Relationship Specialty Start Date End Date Janet Davey, ASSEMBLER SURGICAL GARMENT PCP - General Family Medicine 06/23/18 07/12/20 [address] [place] [address] documented as of this encounter
--- OUTSIDE RECORDS SUMMARY | 2022-06-14 11:13 | XMS_ITS | Encounter Summary ---
:1965 Author Organization [facility] [place] [address] Care Team Providers Name Role Phone Janet Davey Isa GONCALVES Primary Care Provider Reason for Visit Reason Comments Annual Exam Encounter Details Date Type Department Care Team Description 11/02/2021 Office Visit Obstetrics and Drea, Encounter for well woman exam with routine gynecological exam; Gynecology at [facility] Lucy Hinton MD Hot flashes, menopausal [facility] [place] OBSTETRICS & [address] GYNECOLOGY [phone] [place], [place] [address] (Wo rk) Social History Tobacco [...] Janet Davey, SACHA [address] [place] [address] Chief Complaint Patient presents with ??? Annual [...] is significantly affecting her quality of life. Scientific Editor Hx: In addition to above-- Sexual History:Not currently sexually active. States partner unable to due to health concerns. HRT: As above, estradiol patch w/ Mirena for endometrial protection STI Hx Denies history of STDs. Pap hx: Last pap on 10/21/2020: NILM, HPV negative History of EGG SEPARATOR pathology: none HRT - Cancer Screening Denies [...] azelastine (ASTELIN) 137 mcg (0.1 %) Aerosol, [place] instill 1 spray into each nostril twice [...] azelastine (ASTELIN) 137 mcg (0.1 %) Aerosol, [place] instill 1 spray into each nostril twice [...] History: Procedure Laterality Date ??? CREATED BY [employer]) Procedure Date: 01/16/2008 ??? KNEE SURGERY 03/01/14 [...] History Narrative with 3 children. Lives in [place], [place]. 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 Eats relatively healthy with fruits, vegetables, yogurt, and milk; minimal meat. Eats 3 meals per day, does not drink tea or coffee, and occasionally drinks soda.Her youngest is 19 yrs old, in college in [place]. The other two are out of the [...] normal work of breathing Breasts: (performed with timber sizer): Breasts are without masses, skin changes, or dimpling bilaterally. No axillary lymphadenopathy is appreciable. (Biology Faculty Member present.) Psychiatric: She has a normal mood and affect. Her behavior is normal. Thought content normal. Pelvic Exam: Performed in the presence of a timber sizer Normal external female genitalia with evidence of [...] a PCP for routine healthcare maintenance and chlorine cell tender for osteoporosis management. Pt is s/p [...] estrogen dose management. After review with attending side gluer, Dr. Miner, shortly after patient left, it [...] medical management discussed with Dr. Miner, attending side gluer. Lucy Shepard MD PGY2 Brittanie Hardy LPN - 11/02/2021 3:00 PM EST This patient was seen in the OBGYN clinic today. I was present as timber sizer for the sensitive parts of her examination. [...] Hinojosa MD [facility] ENDOCRINOLOGY [place], [place] [address] (Wo rk) 07/13/2022 Office Visit Endocrinology Maile Hinojosa MD [facility] [address] [place], [place] [address] (Wo rk) 07/25/2022 Office Visit Pulmonology Tong Norman MD [facility] Pulmonary Medici [place], [place] [address] (Wo rk) documented as of this encounter Visit Diagnoses Diagnosis Encounter for well woman exam with merrick resendiz gynecological exam Hot flashes, menopausal Symptomatic menopausal or female climact wendy states documented in this encounter Care Teams Press Tool Maker Relationship Specialty Start Date End Date Janet Davey, BENCH ASSEMBLER ELECTRICAL PCP - General Family Medicine 07/13/20 [address] [place] [address] documented as of this encounter
--- OUTSIDE RECORDS SUMMARY | 2022-06-14 11:13 | XMS_ITS | Encounter Summary ---
:1965 Author Organization [facility] [place] [address] Care Team Providers Name Role Phone Janet Davey APRN Primary Care Provider Encounter Details Date Type Department Care Team Description 08/15/2018 Hospital Encounter Mammography at [facility] Rose Tineo, Abnormal finding on [facility] MD breast imaging [facility] [address] NUCLEAR MEDICINE [phone] [place] [address] Social History Tobacco Use Types Packs/Day Years [...] (0.1 %) Aerosol, each nostril twice a [place] day SUMAtriptan (IMITREX) as needed for 1 [...] 05/01/2016 05/01/2021 20 mcg/24 hr (5 years) [id number] IUD cetirizine (ZYRTEC) 10 Take 10 mg by mouth 0 02/12/2022 mg tablet daily. tacrolimus (PROTOPIC) 1 Appl(s) Top Twice 0 08/2402/12/2022 0.1 % ointment daily KETOCONAZOLE (NIZORAL Apply topically. 0 08/24/20 10 02/12/2022 TOP) documented as of this encounter Plan of Treatment Upcoming Encounters Date Type Specialty Care Team Description 07/13/2022 Appointment Radiology Maile Hinojosa MD [facility] ENDOCRINOLOGY [place], [place] [address] (Wo rk) 07/13/2022 Office Visit Endocrinology Maile Hinojosa MD [facility] ENDOCRINOLOGY [place], [place] [address] (Wo rk) 07/25/2022 Office Visit Pulmonology Tong Norman MD [facility] Pulmonary Medici astr[place], [place] [address] (Wo rk) documented as of [...] Right breast: BI-RADS 1, negative. * ??[employer] an d The Society [...] breast documented in this encounter Care Teams Chyron Operator Relationship Specialty Start Date End Date Janet Davey, POULTRY PATHOLOGIST PCP - General Family Medicine 06/23/18 07/12/20 [address] [place] [address] documented as of this encounter
--- OUTSIDE RECORDS SUMMARY | 2022-06-14 11:13 | XMS_ITS | Encounter Summary ---
:1965 Author Organization [facility] [place] [address] Care Team Providers Name Role Phone Edvanessa Janet Vanessa GONCALVES Primary Care Provider Encounter Details Date Type Department Care Team Description 12/15/2020 Orders Only Obstetrics and Saul Graham, Endo metrial polyp Gynecology at [facility] [place] [address] [place] [address] [phone] Social History Tobacco Use Types Packs/Day Years [...] [facility] ER [address] JALE[address] [place] [address] (Wo rk) 07/13/2022 Office Visit Endocrinology Maile Hinojosa MD [facility] ER DR [address] [place] [address] (Wo rk) 07/25/2022 Office Visit Pulmonology Tong Norman MD [facility] Pulmonary Medici [place] [address] (Wo rk) documented as of this encounter [...] who have questions please contact the health adult caregiver that requested your imaging first. Electronically signed by: Genie Carrasco MD, [facility] ([phone]), at 2:23 PM Thank you for letting [...] 02:30 pm) PATIENT INFO: ID #: ? [id number] ?: ??[birth year] (55 yrs)(F) Name: ? JESSICA Melvin GTZ ?Visit Date: 01/09/2021 01:51 pm PERFORMED BY: Performed By: ? Keya Hedrick RDMS Attending: ?Luna GILL, Genie Dumont Referred By: ?SAUL Eddy Location: ? [place] SERVICE(S) PROVIDED: UTV - Transvaginal - [id number] ?[id number] U3D - ??3D rendering with interpretatio n - [id number] ? [id number] INDICATIONS: ? polyp TECHNIQUE/SCAN QUALITY: Technique: ?Transducer [...] 12/24 02:30 pm) PATIENT INFO: ID #: [id number] : [birth year] (55 y rs)(F) Name: JESSICA GTZ Visit Date: 01/09 01:51 pm PERFORMED BY: Performed By: Chetna Hedrick RDMS Attending: Genie Carrasco MD Referred By: SAUL GRAHAM Location: [place] SERVICE(S) PROVIDED: UTV - Transvaginal - [id number] U3D - 3D rendering with interpretation - [id number] INDICATIONS: ? polyp TECHNIQUE/SCAN QUALITY: Technique: Transducer [...] who have questions please contact the health adult caregiver that requested your imaging first. Electronically signed by: Genie Carrasco MD, [facility] ([phone]), at 2:23 PM Thank you for letting [...] uteri documented in this encounter Care Teams Bsa Officer Relationship Specialty Start Date End Date Janet Davey APRN PCP - General Family Medicine 07/13/20 [address] [place] [address] documented as of this encounter
--- OUTSIDE RECORDS SUMMARY | 2022-06-14 11:13 | XMS_ITS | Encounter Summary ---
:1965 Author Organization [facility] [place] [address] Care Team Providers Name Role Phone EdJanet mendez Isa GONCALVES Primary Care Provider Encounter Details Date Type Department Care Team Description 06/15/2021 Telephone Obstetrics and Gynecology Paty Shepard, at [facility] [place] [address] OBSTETRICS & GYNECOLOGY [phone] [place], [place] [address] (Wo rk) Social History Tobacco [...] Hinojosa MD [facility] [address] [place], [place] [address] (Wo rk) 07/13/2022 Office Visit Endocrinology Maile Hinojosa MD [facility] DR [address] [place], [place] [address] (Wo rk) 07/25/2022 Office Visit Pulmonology Tong Norman MD [facility] Pulmonary Medici [place], [place] [address] (Wo rk) documented as of this encounter Visit Diagnoses Not on filedocumented in this encounter Care Teams Computer Tape Librarian Relationship Specialty Start Date End Date Janet Davey, SSRS REPORT DEVELOPER PCP - General Family Medicine 07/13/20 [address] [place] [address] documented as of this encounter
--- OUTSIDE RECORDS SUMMARY | 2022-06-14 11:13 | XMS_ITS | Encounter Summary ---
:1965 Author Organization [facility] [place] [address] Care Team Providers Name Role Phone EdJanet mendez Isa GONCALVES Primary Care Provider Reason for Visit Reason Comments Follow-up Encounter Details Date Type Department Care Team Description 08/04/2021 Office Visit Obstetrics and Lucy Shay, Gynecology at [facility] [place] MD Jeramie post-menopausal [facility] [address] [place], [place] OBSTETRICS & [address] GYNECOLOGY [phone] [place], [place] [address] (Wo rk) Social History Tobacco [...] Stacy reports that neither she nor her Actuarial Science Professor has an objection to goingdown to the [...] Maile Hinojosa MD [facility] DR [address] [place], [place] [address] (Wo rk) 07/13/2022 Office Visit Endocrinology Maile Hinojosa MD [facility] [address] [place], [place] [address] (Wo rk) 07/25/2022 Office Visit Pulmonology Tong Norman MD [facility] Pulmonary Medici ne [place], [place] [address] (Wo rk) documented as of this encounter Visit Diagnoses Diagnosis Osteoporosis, post-menopausal Senile osteoporosis documented in this encounter Care Teams Mechanical Handyman Relationship Specialty Start Date End Date Janet Davey APRN PCP - General Family Medicine 07/13/20 [address] [place] [address] documented as of this encounter
--- OUTSIDE RECORDS SUMMARY | 2022-06-14 11:13 | XMS_ITS | Encounter Summary ---
:1965 Author Organization [place] [address] Care Team Providers Name Role Phone Petar Janet Isa GONCALVES Primary Care Provider Encounter Details Date Type Department Care Team Description 06/12/2021 Telephone Obstetrics and Gynecology [place] [address] Social History Tobacco Use Types Packs/Day [...] call to discuss her visit with her colorist formulator. Stacy was last seenon 01/09/[address] Lucy Shepard where they dicussed recommendation to stop HRT. When Stacy went to her colorist formulator on 06/09 they recommended reducing dose of HRT per patient. Per chart review of this visit the endocrine team recommended this dose reduction instead of discontinuation to help her bones. Patient asking for this medication change and follow up on need for Mirena IUD thatis currently in place. Patient requests plan via [facility] message. Will route this encounter to her provider team. Telephone Encounter - Sydney Silva RN - 06/12/2021 1:54 PM EDT ----- Message from Jeanette Lopez sent at 06/12/2021 1:32 PM EDT ----- Regarding: Next Step Caller's name: Stacy Albright Call back #: [phone] Patient's provider/team: Dr Kumar Reason for call: Please refer to Dr Kumar's note 01/09/21 she has gone to the Osteoporosis Doctorand would like to know what is the next step? documented in this encounter Plan of Treatment Upcoming Encounters Date Type Specialty Care Team Description 07/13/2022 Appointment Radiology Maile Hinojosa MD [facility] ENDOCRINOLOGY [place] [id number] (Wo rk) 07/13/2022 Office Visit Endocrinology Maile Hinojosa MD [facility] DR MARMOLEJO [place], [place] [address] (Wo rk) 07/25/2022 Office Visit Pulmonology Tong Norman MD [facility] Pulmonary Medici [place], [place] [address] (Wo rk) documented as of this encounter Visit Diagnoses Not on filedocumented in this encounter Care Teams Dividing Machine Operator Relationship Specialty Start Date End Date Janet Davey APRN PCP - General Family Medicine 07/13/20 [address] [place] [address] documented as of this encounter
--- OUTSIDE RECORDS SUMMARY | 2022-06-14 11:13 | XMS_ITS | Encounter Summary ---
:1965 Author Organization [facility] Address [address] [place] [address] Care Team Providers Name Role Phone Janet Davey STEEL PAN FORM PLACING SUPERVISOR Primary Care Provider Encounter Details Date Type Department Care Team Description 08/06/2018 Hospital Encounter Mammography at [facility] Janet Davey, Visit for screening [facility] mammogram Drive [address] [place] [address] [facility] [address] [place] [address] Social History Tobacco Use Types Packs/Day [...] (0.1 %) Aerosol, each nostril twice a [place] day SUMAtriptan (IMITREX) as needed for [...] 05/01/2016 05/01/2021 20 mcg/24 hr (5 years) [id number] IUD cetirizine (ZYRTEC) 10 Take 10 mg by mouth 0 02/12/2022 mg tablet daily. tacrolimus (PROTOPIC) 1 Appl(s) Top Twice 0 08/2402/12/2022 0.1 % ointment daily KETOCONAZOLE (NIZORAL Apply topically. 0 08/24/20 10 02/12/2022 TOP) documented as of this encounter Plan of Treatment Upcoming Encounters Date Type Specialty Care Team Description 07/13/2022 Appointment Radiology Maile Hinojosa MD [facility] ENDOCRINOLOGY [place], [place] [address] (Wo rk) 07/13/2022 Office Visit Endocrinology Maile Hinojosa MD [facility] END[facility] [place], [place] [address] (Wo rk) 07/25/2022 Office Visit Pulmonology Tong Norman MD [facility] Pulmonary Medici [place], [place] 0[address] (Wo rk) documented as of [...] mammogram documented in this encounter Care Teams Colleter Relationship Specialty Start Date End Date Janet Davey APRN PCP - General Family Medicine 06/23/18 07/12/20 [address] [place] [address] documented as of this encounter
--- OUTSIDE RECORDS SUMMARY | 2022-06-14 11:13 | XMS_ITS | Encounter Summary ---
:1965 Author Organization [facility] [place] [address] Care Team Providers Name Role Phone Janet Davey APRN Primary Care Provider Encounter Details Date Type Department Care Team Description 11/07/2020 Telephone Obstetrics and Gynecology [place] [address] [place] [address] [phone] Social History Tobacco Use Types Packs/Day Years [...] Description 07/13/2022 Appointment Radiology Maile Hinojosa MD [facility] [address] MARMOLEJO [place], [place] [address] (Wo rk) 07/13/2022 Office Visit Endocrinology Maile Hinojosa MD [facility] ENDOCRINOLOGY [place], [place] 0[address] (Wo rk) 07/25/2022 Office Visit Pulmonology Tong Norman MD [facility] Pulmonary Medici ne [place], [place] [address] (Wo rk) documented as of this encounter Visit Diagnoses Not on filedocumented in this encounter Care Teams Video Library Assistant Relationship Specialty Start Date End Date Janet Davey APRN PCP - General Family Medicine 07/13/20 [address] [place] [address] documented as of this encounter
--- OUTSIDE RECORDS SUMMARY | 2022-06-14 11:13 | XMS_ITS | Encounter Summary ---
:1965 Author Organization [facility] [place] [address] Care Team Providers Name Role Phone EdJanet mendez Isa GONCALVES Primary Care Provider Encounter Details Date Type Department Care Team Description 12/28/2021 Orders Only Obstetrics and Gynecology [place] [address] Social History Tobacco Use Types Packs/Day [...] Hinojosa MD [facility] ENDOCRINOLOGY [place], [place] 0[address] (Wo rk) 07/13/2022 Office Visit Endocrinology Maile Hinojosa MD [facility] DR MARMOLEJO [place], [place] [address] (Wo rk) 07/25/2022 Office Visit Pulmonology Tong Norman MD [facility] Dr Cristiane Lux [place], [place] [address] (Wo rk) documented as of this encounter Visit Diagnoses Not on filedocumented in this encounter Care Teams Finisher Tailor Apprentice Relationship Specialty Start Date End Date Janet Davey APRN PCP - General Family Medicine 07/13/20 [address] [place] [address] documented as of this encounter
--- OUTSIDE RECORDS SUMMARY | 2022-06-14 11:13 | XMS_ITS | Encounter Summary ---
:1965 Author Organization [facility] [place] [address] Care Team Providers Name Role Phone Janet Davey APRN Primary Care Provider Reason for Referral Diagnostic Test (Routine) - Closed Specialty Diagnoses / Procedures Referred By Contact Refer red To Contact Radiology Diagnoses Encounter for screening mammogram for breast cancer Janet Davey APRN [facility] Rad Mammography Procedures Mammo Screening Cad and Eddie Bilateral [address] [address] Referral ID Status Reason Start Date Expiration Date Visits V isits Requested Authorized [id number] Closed Specialty 09/12/2021 03/12/2023 1 1 Service Requested Reason for Visit Diagnostic Test (Routine) - Closed Specialty Diagnoses / Procedures Referred By Contact Refer red To Contact Radiology Diagnoses Encounter for screening mammogram for breast cancer Janet Davey APRN [facility] Rad Mammography Procedures Mammo Screening Cad and Eddie Bilateral [address] [address] Referral ID Status Reason Start Date Expiration Date Visits V isits Requested Authorized [id number] Closed Specialty 09/12/2021 03/12/2023 1 1 Service Requested Encounter Details Date Type Department Care Team Description 11/02/2021 Hospital Encounter Mammography/DXA at Janet Davey, En counter for [facility] PROP SETTER screening mammogram [facility] Nickolas DESIR DR for [facility] cancer Drive [address], [address] [place] [address] [phone] Social History Tobacco Use Types Packs/Day Years [...] spray 0 2016 mcg (0.1 %) Aerosol, [place] into each nostril twice a day SUMAtriptan [...] MD [facility] [place], [place] [address] (Wo rk) 07/13/2022 Office Visit Endocrinology Maile Hinojosa MD [facility] [place], [place] [address] (Wo rk) 07/25/2022 Office Visit Pulmonology Tong Norman MD [facility] er Pulmonary Medici [place], [place] 0[address] (Wo rk) documented as of [...] who have questions please contact the health wound care specialist that requested your imaging first. ? Narrative [...] cancer documented in this encounter Care Teams Ingot Caster Relationship Specialty Start Date End Date Janet Davey APRN PCP - General Family Medicine 07/13/20 [address] [place] [address] documented as of this encounter
--- OUTSIDE RECORDS SUMMARY | 2022-06-14 11:13 | XMS_ITS | Encounter Summary ---
:1965 Author Organization [facility] [place] [address] Care Team Providers Name Role Phone dEJanet mendez Isa GONCALVES Primary Care Provider Encounter Details Date Type Department Care Team Description 12/05/2021 Telephone Obstetrics and Gynecology Paty Shepard, at [facility] [place] [address] OBSTETRICS & GYNECOLOGY [phone] [place], [place] [address] (Wo rk) Social History Tobacco [...] Plan above reviewed with Dr. Zabala, attending woods laborer. Lucy Shepard MD PGY2 Clinical Investigator documented in this encounter Plan of Treatment Upcoming Encounters Date Type Specialty Care Team Description 07/13/2022 Appointment Radiology Maile Hinojosa MD [facility] DR MARMOLEJO [place], [place] [address] (Wo rk) 07/13/2022 Office Visit Maile Matson MD [facility] DR [place], [place] [address] (Wo rk) 07/25/2022 Office Visit Pulmonology Tong Norman MD [facility] Pulmonary Medici [place], [place] [address] (Wo rk) documented as of this encounter Results Lipid Panel (Reflex Direct LDL) (02/12/2022 8:35 AM EDT) athologist Signature Chol, Total 205 mg/dL [facility] Comment: Lower Risk: <200 mg/dL Average Risk: 200-239 mg/dL Higher Risk: >ci=040 mg/dL Triglycerides 86 mg/dL [facility] Comment: Average Risk/Lower Risk: <150 mg/dL Borderline High Risk: 150-199 mg/dL High Risk: 200-499 mg/dL Very High Risk: >zn=851 mg/dL HDL 75 mg/dL [facility] Comment: Males: ?? Higher Risk: <40 mg/dL Females: ?? Higher Risk: <50 mg/dL LDL Cholesterol 113 mg/dL [facility] Comment: Lowest Risk: <100 mg/dL Lower Risk: 100-129 mg/dL Borderline High Risk: 130-159 mg/dL High Risk: 160-189 mg/dL Very High Risk: >jc=153 mg/dL Chol/HDL Ratio 2.7 ratio [facility] Lipid Interpretation See Note [facility] Comment: Lipid management should be guided by a p atient? s ASCVD risk, goals and preferences. ACC/AHA Guidelines recommend high intens ity statin if clinical ASCVD or LDL greater than or equal to 190 mg/dL. http://Bitstrips.Smallknot/BFO-NDH-Ydxxligac Adults aged 40-75 with LDL 70-189 mg/dL should have their 10 year ASCVD risk estimated with the ACC/AHA ASCVD risk es timator http://tools.acc.org/YZGNC-Wmtb-Puwkchgu r/ Statin should be discussed if risk [...] Organization Address City/State/[place] [address] documented in this encounter Visit Diagnoses Diagnosis Hot flashes, menopausal Symptomatic menopausal or female climact [place] Hormone replacement therapy (HRT) documented in this encounter Care Teams Maintenance Supervisor Relationship Specialty Start Date End Date Janet Davey APRN PCP - General Family Medicine 07/13/20 [address] [place] [address] documented as of this encounter
--- OUTSIDE RECORDS SUMMARY | 2022-06-14 11:13 | XMS_ITS | Encounter Summary ---
:1965 Author Organization [facility] [place] [address] Care Team Providers Name Role Phone Janet Davey APRN Primary Care Provider Encounter Details Date Type Department Care Team Description 01/03/2022 Telephone Obstetrics and Gynecology at Dora Zaldivar, [place] [address] Social History Tobacco Use Types Packs/Day [...] MD [facility] ENDOCRINOLOGY [place], [place] [address] (Wo rk) 07/13/2022 Office Visit Endocrinology Maile Hinojosa MD [facility] ENDOCRINOLOGY [place], [place] 0[address] (Wo rk) 07/25/2022 Office Visit Pulmonology Tong Norman MD [facility] Pulmonary Medici ne [place], [place] 0[address] (Wo rk) documented as of [...] ovary. Electronically signed by: Weston mendosa MD, [facility] ([phone]), at 9:24 AM Thank you for letting us participate in the care of this patient. If you are a [facility] and have any questions regarding this report, please contact the number above. For patients who have ques tions, please contact the [facility] professio nal that requested your imaging first. ? Weston Martin, Staff Physician Electronically Signed Final Report ?? 09:31 am Narrative 02/12/2022 9:31 AM EDT Gynecological Report ?(Signed Final 02/12/2022 09:31 am) PATIENT INFO: ID #: ? [id number] ?: ??[birth year] (56 yrs)(F) Name: ? JESSICA ALBRIGHT ?Visit Date: 02/12/2022 07:57 am PERFORMED BY: Performed By: ? Desiree Burrell RDMS Attending: ?Veronica GILL, Butch Maloney Referred By: ?LUDY GRACE Location: ? [place] SERVICE(S) PROVIDED: UTV - Transvaginal - [id number] ?[id number] U3D - ??3D rendering with interpretatio mary - [id number] ? [id number] INDICATIONS: vaginal bleeding, IUD in place TECHNIQUE/SCAN [...] 01/25 09:31 am) PATIENT INFO: ID #: [id number] : [birth year] (56 y rs)(F) Name: JESSICA ALBRIGHT Visit Date: 02/12 07:57 am PERFORMED BY: Performed By: Desiree Burrell RDMS Attending: Weston Martin MD Referred By: LUDY GRACE Location: [place] SERVICE(S) PROVIDED: UTV - Transvaginal - [id number] U3D - 3D rendering with interpretation - [id number] INDICATIONS: vaginal bleeding, IUD in place TECHNIQUE/SCAN [...] ovary. Electronically signed by: Weston mendosa MD, [facility] ([phone]), at 9:24 AM Thank you for letting us participate in the care of this patient. If you are a [facility] and have any questions regarding this report, please contact the number above. For patients who have ques tions, please contact the [facility] professio nal that requested your imaging first. Weston Martin, Staff Physician Electronically Signed Final Report 02/12 09:31 am Ludy Grace MD IMG PELVIC ORDERABLES documented in this encounter Visit Diagnoses Diagnosis Vaginal bleeding Other specified noninflammatory disorder of vagina Vaginal bleeding Other specified noninflammatory disorder of vagina documented in this encounter Care Teams Non Destructive Testing Specialist Relationship Specialty Start Date End Date Janet Davey, ICD 9 CODER PCP - General Family Medicine 07/13/20 [address] [place] [address] documented as of this encounter
--- OUTSIDE RECORDS SUMMARY | 2022-06-14 11:13 | XMS_ITS | Encounter Summary ---
:1965 Author Organization [facility] [place] [address] Care Team Providers Name Role Phone Janet Davey APRN Primary Care Provider Reason for Visit Reason Comments Medication Refill Encounter Details Date Type Department Care Team Description 10/16/2020 [facility] Victor Manuel cifuentes OBSTETRICS & [place] [address] [place] [address] [phone] (Wo rk) Social History Tobacco Use Types [...] MD [facility] [address] MARMOLEJO [place], [place] [address] (Wo rk) 07/13/2022 Office Visit Endocrinology Maile Hinojosa MD [facility] ENDOCRINOLOGY [place], [place] [address] (Wo rk) 07/25/2022 Office Visit Pulmonology Tong Norman MD [facility] Pulmonary Medici [place] [address] (Wo rk) documented as of this encounter Visit Diagnoses Not on filedocumented in this encounter Care Teams Machinist Helper Relationship Specialty Start Date End Date Janet Davey APRN PCP - General Family Medicine 07/13/20 [address] [place] [address] documented as of this encounter
--- OUTSIDE RECORDS SUMMARY | 2022-06-14 11:13 | XMS_ITS | Encounter Summary ---
:1965 Author Organization [facility] [place] [address] Care Team Providers Name Role Phone EdJanet mendez Isa GONCALVES Primary Care Provider Encounter Details Date Type Department Care Team Description 08/17/2021 Telephone Endocrinology at [facility] C Romy Rich, [place] [address] Social History Tobacco Use Types Packs/Day [...] copy be faxed. Electronically routed request to [phone] documented in this encounter Plan of Treatment Upcoming Encounters Date Type Specialty Care Team Description 07/13/2022 Appointment Radiology Maile Hinojosa MD [facility] DR ENDOCRINOLOGY [place], [place] [address] (Wo rk) 07/13/2022 Office Visit Endocrinology Maile Hinojosa MD [facility] ENDOCRINOLOGY [place], [place] [address] (Wo rk) 07/25/2022 Office Visit Pulmonology Tong Norman MD [facility] Pulmonary Medici ne [place], [place] 0[address] (Wo rk) documented as of this encounter Visit Diagnoses Not on filedocumented in this encounter Care Teams Global Program Director Relationship Specialty Start Date End Date Janet Davey, MILITARY SCIENCE INSTRUCTOR PCP - General Family Medicine 07/13/20 [address] [place] [address] documented as of this encounter
--- OUTSIDE RECORDS SUMMARY | 2022-06-14 11:13 | XMS_ITS | Encounter Summary ---
:1965 Author Organization [facility] [place] [address] Care Team Providers Name Role Phone Janet Davey APRN Primary Care Provider Reason for Visit Reason Comments Medication Refill Encounter Details Date Type Department Care Team Description 09/05/2021 Refill Obstetrics and Gynecology at [facility], Genie Mcintosh APRN [id number] [place] [address] Social History Tobacco Use Types Packs/Day [...] Appointment Radiology Maile Hinojosa MD [facility] ER ENDOCRINOLOGY [place], [place] [address] (Wo rk) 07/13/2022 Office Visit Endocrinology Maile Hinojosa MD [facility] ER DR [place], [place] [address] (Wo rk) 07/25/2022 Office Visit Pulmonology Tong Norman MD [facility] er Pulmonary Mediceduardo [place], [place] [address] (Wo rk) documented as of this encounter Visit Diagnoses Not on filedocumented in this encounter Care Teams Distribution Estimator Relationship Specialty Start Date End Date Janet Davey APRN PCP - General Family Medicine 07/13/20 [address] [place] [address] documented as of this encounter
--- OUTSIDE RECORDS SUMMARY | 2022-06-14 11:13 | XMS_ITS | Encounter Summary ---
:1965 Author Organization [facility] [place] [address] Care Team Providers Name Role Phone Petar Janet Moss APRN Primary Care Provider Encounter Details Date Type Department Care Team Description 01/09/2021 Hospital Encounter Ultrasound at [facility] Saul Graham Endometrial polyp [facility] H, [place] [address] [place] [address] [phone] Social History Tobacco Use Types Packs/Day Years [...] (0.1 %) Aerosol, each nostril twice a [place] day SUMAtriptan (IMITREX) as needed for 1 [...] 05/01/2016 05/01/2021 20 mcg/24 hr (5 years) [id number] IUD cetirizine (ZYRTEC) 10 Take 10 mg by mouth 0 02/12/2022 mg tablet daily. tacrolimus (PROTOPIC) 1 Appl(s) Top Twice 0 08/2402/12/2022 0.1 % ointment daily KETOCONAZOLE (NIZORAL Apply topically. 0 08/24/20 10 02/12/2022 TOP) documented as of this encounter Plan of Treatment Upcoming Encounters Date Type Specialty Care Team Description 07/13/2022 Appointment Radiology Maile Hinojosa MD [facility] DR MARMOLEJO [place], [place] [address] (Wo rk) 07/13/2022 Office Visit Endocrinology Maile Hinojosa MD [facility] DR MARMOLEJO [place], [place] [address] (Wo rk) 07/25/2022 Office Visit Pulmonology Tong Norman MD [facility] Pulmonary Medici ne [place], [place] [address] (Wo rk) documented as of [...] who have questions please contact the health physician locums urgent care that requested your imaging first. Electronically signed by: Genie Carrasco MD, [facility] ([phone]), at 2:23 PM Thank you for letting us participate in the care of this patient. If you are a health care [facility] er and have any questions regarding this report, please contact the number below. For patients who have ques tions, please contact the [facility] that requested your imaging first. ? Genie Carrasco, Staff Physician Electronically Signed Final Report ?? 02:30 pm Narrative 01/09/2021 2:30 PM EDT Gynecological Report ?(Signed Final 01/09/2021 02:30 pm) PATIENT INFO: ID #: ? [id number] ?: ??[birth year] (55 yrs)(F) Name: ? JESSICA GTZ ?Visit Date: 01/09/2021 01:51 pm PERFORMED BY: Performed By: ? Keya Hedrick RDMS Attending: ?Luna GILL, Genie Dumont Referred By: ?SAUL Eddy Location: ? [place] SERVICE(S) PROVIDED: UTV - Transvaginal - [id number] ?[id number] U3D - ??3D rendering with interpretatio n - [id number] ? [id number] INDICATIONS: ? polyp TECHNIQUE/SCAN QUALITY: Technique: ?Transducer [...] 12/24 02:30 pm) PATIENT INFO: ID #: [id number] : [birth year] (55 y rs)(F) Name: JESSICA GTZ Visit Date: 01/09 01:51 pm PERFORMED BY: Performed By: Chetna Hedrick RDMS Attending: Genie Carrasco MD Referred By: SAUL GRAHAM Location: [place] SERVICE(S) PROVIDED: UTV - Transvaginal - [id number] U3D - 3D rendering with interpretation - [id number] INDICATIONS: ? polyp TECHNIQUE/SCAN QUALITY: Technique: Transducer [...] who have questions please contact the health physician locums urgent care that requested your imaging first. Electronically signed by: Genie Carrasco MD, [facility] ([phone]), at 2:23 PM Thank you for letting us participate in the care of this patient. If you are a health care provid er and have any questions regarding this report, please contact the number below. For patients who have ques tions, please contact the [facility] care professio [facility] that requested your imaging first. Genie Carrasco, Staff Physician Electronically Signed Final Report 01/09 02:30 pm Saul H Gladys CNM IMG US PELVIC ORDERABLES documented in this encounter Visit Diagnoses Diagnosis Endometrial polyp Polyp of corpus uteri documented in this encounter Care Teams Cement Sack Breaker Relationship Specialty Start Date End Date Janet Davey APRN PCP - General Family Medicine 07/13/20 [address] [place] [address] documented as of this encounter
--- OUTSIDE RECORDS SUMMARY | 2022-06-14 11:13 | XMS_ITS | Encounter Summary ---
:1965 Author Organization [facility] [place] [address] Care Team Providers Name Role Phone Janet Davey Isa GONCALVES Primary Care Provider Reason for Visit Reason Comments Follow-up Encounter Details Date Type Department Care Team Description 01/09/2021 Office Visit Obstetrics and Lucy Shepardenolena Gynecology at [facility] MD Mary Jane [facility] Victor Manuel cifuentes [facility] [place] [address] OBSTETRICS & GYNECOLOGY [phone] [place], [place] [address] (Wo rk) Social History Tobacco [...] Visit: 01/09/2021 Referred by: Cece Graham CNM [facility] [place] [address] HPI: Satcy Albright is a 55 y.o.. female with [...] azelastine (ASTELIN) 137 mcg (0.1 %) Aerosol, [place] instill 1 spray into each nostril twice [...] 1 each by Intrauterine route once. Lot [id number] 05/01/16 05/01/21 PROVIDER, HISTORICAL hydrocortisone (WESTCORT) 0.2 [...] azelastine (ASTELIN) 137 mcg (0.1 %) Aerosol, [place] instill 1 spray into each nostril twice a day 0 ??? LINZESS 145 mcg Capsule 145 mg as needed. 0 ??? SUMAtriptan (IMITREX) 100 mg Tablet as needed for Migraine. 1 ??? levonorgestrel (MIRENA) 20 mcg/24 hr (5 years) IUD 1 each by Intrauterine route once. Lot [id number] ??? hydrocortisone (WESTCORT) 0.2 % Cream Apply [...] History: Procedure Laterality Date ??? CREATED BY CREDANT TechnologiesS.Confluent (Oblix / Oracle).LJoseph([employer]) Procedure Date: 01/16/2008 ??? KNEE SURGERY 03/01/14 Right knee; patella surgery ??? LITHOTRIPSY ? ? PRO CYSTOURETHROSCOPY, FULGUR <.5CM GISELA N/A 04/18/2017 CYSTO, FULGURATION\BLADDER LESION\W\WO BX\LESS THAN 0.5CM (WRVU 4.05) performed by Luis Michael Jr., MD at [facility] MAIN OR ??? SHOULDER SURGERY Right [...] History Narrative with 3 children. Lives in [place], [place]. 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 [...] Result Value Ref Range Surgical Pathology Report [id number] Location: 5L The signing pathologist has (i) [...] DO Verified: 12/14/2020 11:13 Pathologist Performed at: -[facility], [place], [place] SPECIMEN(S) SUBMITTED a - endometrium, biopsy [...] following with endocrinology, recommend office visit with preschool assistant director to discuss stopping HRT in the setting of persistent postmenopausal bleeding. If we did discontinue HRT, reviewed that we could decrease estrogen strength to taper down. Plan as below: - pt to make appt with endocrinology to discuss stopping HRT in setting of monthly vaginal bleeding - f/u with bridge repair crew person in 3 mo after endocrinology --> recommendation to taper and then stop HRT Patient plan was formulated with Dr. Nunez, attending medicine assistant Lucy Shepard MD PGY1 01/09/2021 Genoveva Nunez [...] Hinojosa MD [facility] [address] [place], [place] [address] (Wo rk) 07/13/2022 Office Visit Endocrinology Maile Hinojosa MD [facility] [address] [place], [place] [address] (Wo rk) 07/25/2022 Office Visit Pulmonology Tong Norman MD [facility] Pulmonary Medici [place], [place] [address] (Wo rk) documented as of this encounter Visit Diagnoses Diagnosis Perimenopause Symptomatic menopausal or female climact wendy states documented in this encounter Care Teams Carousel Attendant Relationship Specialty Start Date End Date Janet Davey APRN PCP - General Family Medicine 07/13/20 [address] [place] [address] documented as of this encounter
--- OUTSIDE RECORDS SUMMARY | 2022-06-14 11:13 | XMS_ITS | Encounter Summary ---
:1965 Author Organization [facility] [place] [address] Care Team Providers Name Role Phone Janet Davey APRN Primary Care Provider Reason for Visit Consultation (Routine) - Specialty Diagnoses / Procedures Referred By Contact Refer red To Contact Dermatology Diagnoses Follicular disorder, unspecified Folliculitis presumed Fungal Janet Davey APRN Hammer, Charles J, MD Procedures Consult [address] [place] [address] [place] [address] Phone: Fax: Referral ID Status Reason Start Date Expiration Date Visits V isits Requested Authorized [id number] Consult, Test 12/28/2019 06/29/2020 6 6 & Treat PCP Updated and/or Approved Encounter Details Date Type Department Care Team Description 01/04/2020 TH Visit Dermatology at [facility] [place] is pilaris (TeleHealth) Yarelis GILL [address] [facility] Medhat B DERMATOLOGY [place], [place] [id number] [phone] Social History Tobacco Use Types Packs/Day Years [...] 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 [...] MD [facility] [address] [place], [place] [address] (Wo rk) 07/13/2022 Office Visit Endocrinology Maile Hinojosa MD [facility] [address] [place], [place] [address] (Wo rk) 07/25/2022 Office Visit Pulmonology Tong Norman MD [facility] Pulmonary Medici ne [place], [place] [address] (Wo rk) documented as of this encounter Visit Diagnoses Diagnosis Keratosis pilaris Other specified congenital anomaly of sk in documented in this encounter Care Teams Health Unit Coordinator Relationship Specialty Start Date End Date Janet Davey APRN PCP - General Family Medicine 06/23/18 07/12/20 [address] [place] [address] documented as of this encounter
--- OUTSIDE RECORDS SUMMARY | 2022-06-14 11:13 | XMS_ITS | Encounter Summary ---
:1965 Author Organization [facility] Address [address] [place] [address] Care Team Providers Name Role Phone Petar Janet Isa GONCALVES Primary Care Provider Encounter Details Date Type Department Care Team Description 07/07/2020 Office Visit Endocrinology at [facility] Cuate Pearl MD Osteoporosis, [facility] ed [facility] [address] DR osteoporosis type, [place] [address] ENDOCRINOLOGY unspecified [phone] [place], [place] [address] pathological fracture [phone] presence (Work) Social History Tobacco Use Types [...] 20 of the 25-minute appointment was spent [id number] discussing the issues above. documented in this encounter Plan of Treatment Upcoming Encounters Date Type Specialty Care Team Description 07/13/2022 Appointment Radiology Maile Hinojosa MD [facility] ENDOCRINOLOGY [place], [place] [address] (Wo rk) 07/13/2022 Office Visit Endocrinology Maile Hinojosa MD [facility] ENDOCRINOLOGY [place], [place] [address] (Wo rk) 07/25/2022 Office Visit Pulmonology Tong Norman MD [facility] Pulmonary Medici ne [place], [place] [address] (Wo rk) documented as of [...] EST) P athologist Signature Estradiol 135 pg/mL [facility] Comment: Reference ranges: Males: Adult: [...] Hall MD CHEMISTRY ORDERABLES Performing Organization Address City/[facility]/[place]IP [place] [address] Vitamin D, 25-Hydroxy (07/07/2020 3:51 PM EST) Patholo gist Method Time Signature 25-OH Vit D 42 21 - 100 [facility] Total ng/mL [facility] 25-OH Vit D Sufficient [facility]ORY Specimen Anatomical Collection Method Collection Time Receive d Time (Source) Location / / Volume Laterality Blood specimen No Charge / 07/07/2020 3:51 PM 020 4:18 (specimen) Unknown EST PM EST Resulting Agency Comment Spec In Lab Cuate Hall MD CHEMISTRY ORDERABLES Performing Organization Address City/State/[place] [address] Calcium (07/07/2020 3:51 PM EST) athologist Signature Calcium 9.1 8.5 - 10.5 ALBERT A[place]H mg/dL [facility] Specimen Anatomical Collection Method Collection Time Receive d Time (Source) Location / / Volume Laterality Blood specimen No Charge / 07/07/2020 3:51 PM 4:18 (specimen) Unknown EST PM EST Resulting Agency Comment Spec In Lab Cuate Hall MD CHEMISTRY ORDERABLES Performing Organization Address City/State/ZIP Code Phon e Number [address] PTH (07/07/2020 3:51 PM EST) athologist Signature PTH 40 15 - 65 [facility] ASHUTOSH pg/mL [facility] Specimen Anatomical Collection Method Collection Time Receive d Time (Source) Location / / Volume Laterality Blood specimen No Charge / 07/07/2020 3:51 PM 8:39 (specimen) Unknown EST AM EST Resulting Agency Comment Spec In Lab Cuate Hall MD CHEMISTRY ORDERABLES Performing Organization Address City/State/ZIP Code Phon e Number [address] Lavender Tube HOLD (07/07/2020 3:51 PM EST) [facility] gist Method Time Signature Lavender Hold Sample in [facility] LABORATORY Specimen Anatomical Collection Method Collection Time Receive d Time (Source) Location / / Volume Laterality Blood specimen No Charge / 07/07/2020 3:51 PM 020 3:59 (specimen) Unknown EST PM EST Cuaet Hall MD HEMATOLOGY ORDERABLES Performing Organization Address City/State/ZIP Code Phon e Number [address] Green Tube HOLD (07/07/2020 3:51 PM EST) athologist Signature Green Hold Sample in [facility] LABORATORY Specimen Anatomical Collection Method Collection Time Receive d Time (Source) Location / / Volume Laterality Blood specimen No Charge / 07/07/2020 3:51 PM 020 3:59 (specimen) Unknown EST PM EST Cuate Hall MD CHEMISTRY ORDERABLES Performing Organization Address City/[facility]/ZIP Code Phon e Number [address] Gold Tube HOLD (07/07/2020 3:51 PM EST) athologist Signature Gold Hold Sample in [facility]. [facility] Specimen Anatomical Collection Method Collection Time Receive d Time (Source) Location / / Volume Laterality Blood specimen No Charge / 07/07/2020 3:51 PM 020 3:59 (specimen) Unknown EST PM EST Cuate Hall MD CHEMISTRY ORDERABLES Performing Organization Address City/[facility]/[place] [address] documented in this encounter Visit Diagnoses Diagnosis Osteoporosis, unspecified osteoporosis t ype, unspecified pathological fracture presence documented in this encounter Care Teams Male Model Relationship Specialty Start Date End Date Janet Davey, NAPHTHALENE STILL OPERATOR PCP - General Family Medicine 06/23/18 07/12/20 [address] [place] [address] documented as of this encounter
--- OUTSIDE RECORDS SUMMARY | 2022-06-14 11:13 | XMS_ITS | Encounter Summary ---
:1965 Author Organization [facility] Address [address] [place] [address] Care Team Providers Name Role Phone Petar Janet Moss APRN Primary Care Provider Reason for Visit Reason Comments Annual Exam Encounter Details Date Type Department Care Team Description 10/21/2020 Office Visit Obstetrics and Saul Das Hormone replacement therapy (HRT); Gynecology at [facility] H, CNM Encounter for gynecological examination with abnormal finding[facility] [address] [place], [place] [phone] [phone] Social History Tobacco Use Types Packs/Day Years [...] azelastine (ASTELIN) 137 mcg (0.1 %) Aerosol, [place] instill 1 spray into each nostril twice a day 0 ??? linaclotide (LINZESS) 72 mcg Capsule Take 72 mcg by mouth. One time per week ??? SUMAtriptan (IMITREX) 100 mg Tablet as needed for Migraine. 1 ??? levonorgestrel (MIRENA) 20 mcg/24 hr (5 years) IUD 1 each by Intrauterine route once. Lot [id number] ??? hydrocortisone (WESTCORT) 0.2 % Cream Apply [...] Procedure Laterality Date ??? CREATED BY INTERFACE EJosephS.WJosephLJoseph(Reelation) Procedure Date: 01/16/2008 ??? KNEE SURGERY 03/01/14 [...] History Narrative with 3 children. Lives in [place], [place]. 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 Eats relatively healthy with fruits, vegetables, yogurt, and milk; minimal meat. Eats 3 meals per day, does not drink tea or coffee, and occasionally drinks soda.Her youngest is 19 yrs old, in college in [place]. The other two are out of the [...] Plan: Healthy 55 y.o. 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 Pap smeartoday ??? Hormone replacement [...] Maile Hinojosa MD [facility] [place] [id number] (Wo rk) 07/13/2022 Office Visit Endocrinology Maile Hinojosa MD [facility] DR [address] [place], [place] [address] (Wo rk) 07/25/2022 Office Visit Pulmonology Tong Norman MD [facility] Pulmonary Medici [place], [place] [address] (Wo rk) documented as of this encounter Procedures Procedure Name Priority Date/Time Associated Comments Diagnosis CYTOPATHOLOGY Routine 10/24/2020 4:44 PM Cervical cancer Resul ts for this GYNECOLOGICAL EST screening procedure are in the results section. HPV Routine 10/21/2020 2:20 PM Results f or this EST procedure are i n the results section. COLOR RECEIVER CYTOLOGY Routine 10/21/2020 2:20 PM Results f or this INTERPRETATION EST procedure are in the results section. COLOR RECEIVER CYTOLOGY FINAL Routine 10/21/2020 2:20 PM Res ults for this REPORT EST procedure are i n the results section. documented in this encounter Results Cytopathology Gynecological (10/24/2020 4:44 PM EST) Specimen Anatomical Collection Method Collection Time Receive d Time (Source) Location / / Volume Laterality AP Specimen 10/24/2020 4:44 PM 1 4:44 EST PM EST Narrative [facility] - 10/24/2020 4:44 PM EST Specimen requisition ordered. ??Separate Pathology report to follow Saul Das CNM PATHOLOGY/CYTOLOGY ORDERABLE S Performing Organization Address City/[facility]/[place] [address] COLOR RECEIVER Cytology Interpretation (10/21/2020 2:20 PM EST) [facility] gist Method Time Signature Construction Laborer Cytology NILM ALBERT Interpretation Other [facility] Comment: Construction Laborer Cytology Final Report Acces kendall: [id number] Construction Laborer Cytology Comment Present [facility] Endocervical Component Present [facility] Specimen Anatomical Collection Method Collection Time Receive d Time (Source) Location / / Volume Laterality AP Specimen 10/21/2020 2:20 PM 1 1:35 EST PM EST Saul Das CNM PATHOLOGY/CYTOLOGY ORDERABLE S Performing Organization Address City/[facility]/[place] [address] Construction Laborer Cytology Final Report (10/21/2020 2:20 PM EST) Component Value Ref Test Analysis Performed At [facility] gist Range Method Time Signature Construction Laborer Cytology [id number] ? Location: 5L ALBERT Final Report ASHUTOSH The signing pathologist has (i) examined the relevant preparation(s) for the [facility] specimen(s) and (ii) rendered or confirmed the diagnosis(es) . HOSPITAL LABORATORY . ? Construction Laborer Final DIAGNOSIS Other Negative for squamous intraepithelial lesion (TIGIST). See disc ussion. For consensus guidelines for the management of c ervical cancer screening test results, please see: ?? http://www.asccp.org . Electronically signed by: ??Alvino Nash MD Verified: ??11/05/2020 ?Pathologist Performed at: ??-[facility] Dept. of Pathology, [place], [place] DISCUSSION Endometrial cells present in a [...] Gen omics and Advanced Technology (CGAT) at [facility]. ? - David Avilez, PhD, [facility], Director-[facility] STATEMENT OF ADEQUACY Specimen submitted is satisfactory. Endocervical component present. CLINICAL INFORMATION HPV Option: ?Concurrent HPV and Pap CT/NG Option: ?No Preparation: ? Liquid based Pap Specimen Source: ? Cervical/Endocervical LMP: ? n/a Hysterectomy: ?No : ?No : ?No I.U.D.: ?Yes Pelvic Radiation: ?No Hist Abnl Pap/Biopsy: ?No Prior COLOR RECEIVER Therapy: ? No Hist of HPV Vaccine: ? No . CLINICAL INFORMATION ICD Diagnosis: ? Z12.4 Encounter for screening for malignant neoplasm of cervix Clinical Data, Significant Therapy and Clinical Impression ? ? : ?_ This Pap Test has been evalu ated with the assistance of the [facility] Pap Test Imaging System. Note: The Pap test is a screening test for cervical cancer with an inherent false-negative rate dependent upon several variables. For further information please contact the [facility] Laboratory. Reference: Devika LEON. Director Paid Media of Pap Smear Results. In: Sukumar BS, Roni CALLEJAS, meghan spangler. The Pap Smear. [place]: Jonah, 2002: 71-77. Specimen (Source) Anatomical Collection Method Collection Time Re ceived Time Location / / Volume Laterality 10/21/2020 2:20 PM EST Saul Das CNM PATHOLOGY/CYTOLOGY ORDERABLE S Performing Organization Address City/State/[place] [address] HPV (10/21/2020 2:20 PM EST) [facility] Method Time Signature HPV 16 NEGATIVE NEGATIVE [facility] HPV 18 NEGATIVE NEGATIVE [facility] HPV Other HR NEGATIVE NEGATIVE [facility] HPV See Comment ALBERT Interpretation [facility] Comment: NEGATIVE for high-risk HPV *. [...] Organization Address City/State/[place] [address] documented in this encounter Visit Diagnoses Diagnosis Hormone replacement therapy (HRT) Encounter for gynecological examination with abnormal finding Routine gynecological examination Cervical cancer screening Screening for malignant neoplasm of the cervix documented in this encounter Care Teams Office Helper Relationship Specialty Start Date End Date Janet Davey APRN PCP - General Family Medicine 07/13/20 [address] [place] [address] documented as of this encounter
--- OUTSIDE RECORDS SUMMARY | 2022-06-14 11:13 | XMS_ITS | Encounter Summary ---
:1965 Author Organization [facility] [place] [address] Care Team Providers Name Role Phone Petar Janet Isa GONCALVES Primary Care Provider Encounter Details Date Type Department Care Team Description 07/13/2020 Hospital Encounter Ultrasound at [facility] Ferdinand Michael Nephrolithiasis [facility] [place] [address] UROLOGY DEPT. [phone] [place], [place] [address] Social History Tobacco Use Types [...] (0.1 %) Aerosol, each nostril twice a Lottie day SUMAtriptan (IMITREX) as needed for 1 [...] 05/01/2016 05/01/2021 20 mcg/24 hr (5 years) [id number] IUD cetirizine (ZYRTEC) 10 Take 10 mg by mouth 0 02/12/2022 mg tablet daily. tacrolimus (PROTOPIC) 1 Appl(s) Top Twice 0 08/2402/12/2022 0.1 % ointment daily KETOCONAZOLE (NIZORAL Apply topically. 0 08/24/20 10 02/12/2022 TOP) documented as of this encounter Plan of Treatment Upcoming Encounters Date Type Specialty Care Team Description 07/13/2022 Appointment Radiology Maile Hinojosa MD [facility] ENDOCRINOLOGY [place], [place] [address] (Wo rk) 07/13/2022 Office Visit Endocrinology Maile Hinojosa MD [facility] DR [address] [place], [place] [address] (Wo rk) 07/25/2022 Office Visit Pulmonology Tong Norman MD [facility] Pulmonary Medici ne [place], [place] [address] (Wo rk) documented as of [...] below. Electronically signed by: Antoinette Lawson, [facility] ([phone]), at 8:56 AM ?Mallika Galindo, [facility] Chief Electronically Signed Final Report ?? 09:02 am Narrative 07/13/2020 9:03 AM EST Renal ? (Signed Final 07/13/2020 09:02 am) PATIENT INFO: ID #: ? [id number] ?: ??[birth year] (54 yrs)(F) Name: ? JESSICA Charles GTZ ?Visit Date: 07/13/2020 07:58 am PERFORMED BY: Performed By: ? Jolene Alexander RDMS Attending: ?Mateo GILL, Mallika Ribera Referred By: ?FERDINAND MICHAEL JR Location: ? [place] SERVICE(S) PROVIDED: ??URETRO - Retroperitoneal Complete - I [id number] ? [id number] INDICATIONS: ??? stones COMPARISON: Ultrasound: 06/30/19 RIGHT [...] 09:02 am ) PATIENT INFO: ID #: [id number] : [birth year] (54 y rs)(F) Name: JESSICA GTZ Visit Date: 07/13 07:58 am PERFORMED BY: Performed By: Sidra Alexander RDMS Attending: Mallika Galindo MD Referred By: FERDINAND MICHAEL JR Location: [place] SERVICE(S) PROVIDED: URETRO - Retroperitoneal Complete - [id number] INDICATIONS: ? stones COMPARISON: Ultrasound: 06/30/19 RIGHT [...] below. Electronically signed by: Antoinette Lawson, Radiology [place] ([phone]), at 8:56 AM Mallika Galindo, Refrigeration Supervisor Electronically Signed Final Report 07/13 09:02 am Ferdinand Michael Jr., MD IMG GEN ORDERABLES documented in this encounter Visit Diagnoses Diagnosis Nephrolithiasis Calculus of kidney documented in this encounter Care Teams Imagery Intelligence Relationship Specialty Start Date End Date Janet Davey APRN PCP - General Family Medicine 07/13/20 [address] [place] [address] documented as of this encounter
--- OUTSIDE RECORDS SUMMARY | 2022-06-14 11:13 | XMS_ITS | Encounter Summary ---
:1965 Author Organization [facility] [place] [address] Care Team Providers Name Role Phone Janet Davey Isa GONCALVES Primary Care Provider Reason for Visit Reason Comments Nephrolithiasis Encounter Details Date Type Department Care Team Description 06/30/2019 Office Visit Urology at [facility] Ferdinand Michael Jr., Nephrolithiasis [facility] [place] [address] [facility] [phone] UROLOGY DEPT. [place], [place] [address] (Wo rk) Social History Tobacco [...] Description 07/13/2022 Appointment Radiology Maile Hinojosa MD [facility] DR [address] [place], [place] [address] (Wo rk) 07/13/2022 Office Visit Maile Matson MD [facility] DR [address] [place], [place] [address] (Wo rk) 07/25/2022 Office Visit Pulmonology Tong Norman MD [facility] Pulmonary Medici [place], [place] [address] (Wo rk) documented as of this encounter [...] below. Electronically signed by: Antoinette Lawson, Radiology [place] ([phone]), at 8:56 AM ?Mallika Galindo, [facility] Chief Electronically Signed Final Report ?? 09:02 am Narrative 07/13/2020 9:03 AM EST Renal ? (Signed Final 07/13/2020 09:02 am) PATIENT INFO: ID #: ? [id number] ?: ??[birth year] (54 yrs)(F) Name: ? JESSICA GTZ ?Visit Date: 07/13/2020 07:58 am PERFORMED BY: Performed By: ? Jolene Alexander RDMS Attending: ?Mateo GILL, Malilka Ribera Referred By: ?FERDINAND MICHAEL Location: ? [place] SERVICE(S) PROVIDED: ??URETRO - Retroperitoneal Complete - I [id number] ? [id number] INDICATIONS: ??? stones COMPARISON: Ultrasound: 06/30/19 RIGHT [...] 09:02 am ) PATIENT INFO: ID #: [id number] : 61 (54 y rs)(F) Name: JESSICA GTZ Visit Date: 07/13 07:58 am PERFORMED BY: Performed By: Sidra Alexander RDMS Attending: Mallika Galindo MD Referred By: FERDINAND MICHAEL Location: [place] SERVICE(S) PROVIDED: URETRO - Retroperitoneal Complete - [facility] [id number] INDICATIONS: ? stones COMPARISON: Ultrasound: 06/30/19 RIGHT [...] below. Electronically signed by: Antoinette Lawson, Radiology [place] ([phone]), at 8:56 AM Mallika Galindo, Practice Physician Electronically Signed Final Report 07/13 09:02 am Ferdinand Michael Jr., MD IM US GEN ORDERABLES documented in this encounter Visit Diagnoses Diagnosis Nephrolithiasis Calculus of kidney Nephrolithiasis Calculus of kidney documented in this encounter Care Teams Vocational Ed Instructor Relationship Specialty Start Date End Date Janet Davey, TELECOMMUNICATIONS SWITCH TECHNICIAN PCP - General Family Medicine 06/23/18 07/12/20 [address] [place] [address] documented as of this encounter
--- OUTSIDE RECORDS SUMMARY | 2022-06-14 11:13 | XMS_ITS | Encounter Summary ---
:1965 Author Organization [facility] [place] [address] Care Team Providers Name Role Phone Petar Janet Isa GONCALVES Primary Care Provider Encounter Details Date Type Department Care Team Description 11/10/2021 Hospital Encounter Mammography at [facility] [place], Abnormal finding on [facility] Genoveva Tristan MD breast imaging [facility] [id number] DIAGNOSTIC [phone] [place] [address] Social History Tobacco Use Types Packs/Day Years [...] spray 0 2016 mcg (0.1 %) Aerosol, [place] into each nostril twice a day SUMAtriptan [...] Appointment Radiology Maile Hinojosa MD ONE [facility] ER ENDOCRINOLOGY [place], [place] [address] (Wo rk) 07/13/2022 Office Visit Endocrinology Maile Hinojosa MD [facility] ER ENDOCRINOLOGY [place], [place] 0[address] (Wo rk) 07/25/2022 Office Visit Pulmonology Tong Norman MD One [facility] Pulmonary Medici ne [place], [place] 0[address] (Wo rk) documented as of [...] with their provider to determine their preferred [facility] cancer screening schedule. * ??Women should [...] who have questions please contact the health primary care coordinator that requested your imaging first. ? Electronically signed by: Genoveva crawley MD, [facility] ([phone]), at 11/10/2021 1:35 PM Narrative 11/10/2021 1:35 [...] breast documented in this encounter Care Teams Application Systems Engineer Relationship Specialty Start Date End Date Janet Davey, TELEVISION DIRECTOR PCP - General Family Medicine 07/13/20 [address] [place] [address] documented as of this encounter
--- OUTSIDE RECORDS SUMMARY | 2022-06-14 11:13 | XMS_ITS | Encounter Summary ---
:1965 Author Organization [facility] [place] [address] Care Team Providers Name Role Phone Janet Davey Isa GONCALVES Primary Care Provider Encounter Details Date Type Department Care Team Description 03/30/2019 Orders Only Urology at [facility] Luis Michael Jr., MD [facility] [place] [address] UROLOGY DEPT. [phone] [place], [place] 0375 (Wo rk) Social History Tobacco [...] MD [facility] ER ENDOCRINOLOGY [place], [place] 0[address] (Wo rk) 07/13/2022 Office Visit Endocrinology Maile Hinojosa MD [facility] [address] [place]EL [place], [place] [address] (Wo rk) 07/25/2022 Office Visit Pulmonology Tong Norman MD [facility] Pulmonary Mediceduardo [place], [place] [address] (Wo rk) documented as of this encounter Visit Diagnoses Not on filedocumented in this encounter Care Teams Library Serials Assistant Relationship Specialty Start Date End Date Janet Davey, DRAPERY AND UPHOLSTERY ESTIMATOR PCP - General Family Medicine 06/23/18 07/12/20 [address] [place] [address] documented as of this encounter
--- OUTSIDE RECORDS SUMMARY | 2022-06-14 11:13 | XMS_ITS | Encounter Summary ---
:1965 Author Organization [facility] [place] [address] Care Team Providers Name Role Phone EdJanet mendez Isa GONCALVES Primary Care Provider Encounter Details Date Type Department Care Team Description 07/12/2020 Orders Only Endocrinology at [facility] Cuate Pearl MD Osteoporosis, [facility] DR osteoporosis type, [place] [address] ENDOCRINOLOGY unspecified [phone] [place], [place] [address] pathological fracture [phone] presence (Work) Social History Tobacco Use Types [...] [facility] ER [address] MARMOLE[address] [place], [place] [address] (Wo rk) 07/13/2022 Office Visit Endocrinology Maile Hinojosa MD [facility] ER [address]MO[address] [place], [place] [address] (Wo rk) 07/25/2022 Office Visit Pulmonology Tong Norman MD [facility] Pulmonary Medici [place], [place] [address] (Wo rk) documented as of this encounter Visit Diagnoses Diagnosis Osteoporosis, unspecified osteoporosis t ype, unspecified pathological fracture presence documented in this encounter Care Teams Studio Engineer Relationship Specialty Start Date End Date Janet Davey, TRUSS DRIVER HELPER PCP - General Family Medicine 06/23/18 07/12/20 [address] [place] [address] documented as of this encounter
--- OUTSIDE RECORDS SUMMARY | 2022-06-14 11:13 | XMS_ITS | Encounter Summary ---
:1965 Author Organization [facility] [place] [address] Care Team Providers Name Role Phone Janet Davey Isa GONCALVES Primary Care Provider Encounter Details Date Type Department Care Team Description 12/07/2021 Orders Only Obstetrics and Lucy Shepard, Gynecology at [facility] Azalea Hinton MD menopausal [facility] [address] [place], [place] OBSTETRICS & [address] GYNECOLOGY [phone] [place], [place] [address] (Wo rk) Social History Tobacco [...] MD [facility] [address] [place], [place] [address] (Wo rk) 07/13/2022 Office Visit Endocrinology Maile Hinojosa MD [facility] [address] [place], [place] [address] (Wo rk) 07/25/2022 Office Visit Pulmonology Tong Norman MD [facility] Medical [facility] Pulmonary Medici [place], [place] [address] (Wo rk) Scheduled Orders Name Type Priority Associated Diagnoses Order S chedule Lipid Panel (Reflex Lab Routine Hot flashes, menopaus al Expected: 12/07/2021 Direct LDL) (Approximate), Expires: 12/07/2022 documented as of this encounter Visit Diagnoses Diagnosis Hot flashes, menopausal Symptomatic menopausal or female climact [place] documented in this encounter Care Teams Passenger Service Representative Relationship Specialty Start Date End Date Janet Davey, ALUMINUM BOATS ASSEMBLER PCP - General Family Medicine 07/13/20 [address] [place] [address] documented as of this encounter
--- OUTSIDE RECORDS SUMMARY | 2022-06-14 11:13 | XMS_ITS | Encounter Summary ---
:1965 Author Organization [facility] [place] [address] Care Team Providers Name Role Phone EdJanet [...] Appointment Radiology Maile Hinojosa MD [facility] [address] MARMO[address] [place], [place] [address] (Wo rk) 07/13/2022 Office Visit Endocrinology Maile Hinojosa MD [facility] [address] [place], [place] [address] (Wo rk) 07/25/2022 Office Visit Pulmonology Tong Norman MD [facility] Pulmonary Mediceduardo ne [place], [place] [address] (Wo rk) documented as of this encounter Visit Diagnoses Not on filedocumented in this encounter Care Teams Civil Technician Relationship Specialty Start Date End Date Janet Davey APRN PCP - General Family Medicine 07/13/20 [address] [place] [address] documented as of this encounter
--- OUTSIDE RECORDS SUMMARY | 2022-06-14 11:13 | XMS_ITS | Encounter Summary ---
:1965 Author Organization [facility] [place] [address] Care Team Providers Name Role Phone Janet Davey Isa GONCALVES Primary Care Provider Reason for Referral Diagnostic Test (Routine) - Authorized Specialty Diagnoses / Procedures Referred By Contact Refer red To Contact Radiology Diagnoses Osteoporosis, unspecified osteoporosis type, unspecified pathological fracture presence Maile Hinojosa MD [facility] Rad Xray Procedures DXA Central Spine, Hip, and/or Whole Body (Generic) [facility] [address] [place] [address] [place] [address] [place] [address] Referral ID Status Reason Start Expiration Visits Visits Date Date Requested Authorized [id number] Authorized Specialty 12/08/2022 1 1 Service 1 Requested Encounter Details Date Type Department Care Team Description 06/09/2021 Office Visit Endocr[facility]ology at [facility] Maile Mccurdy, Osteoporosis, One [facility] unspecified Drive [facility] osteoporosis type, [place] [address] CENTER unspecyoselyn [phone] ENDOCRINOLOGY pathological fracture [place], [place] [address] presence Social History Tobacco Use Types [...] Davey APRN 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 She was previously seen by 06/2020. She has had 3 episodes of kidney stones, does not remember when was a last one, in pathology I see one in 2009. Has been on ERT for a long time, and tells me that her new EXPLOSIVE ORDNANCE TECHNICIAN wants to decrease or stop it. [...] [] 701-900 mg [] 901-1100 mg [] 7529-6933 mg [] 0218-1844 mg [] Above 1500 mg Medications: Current [...] azelastine (ASTELIN) 137 mcg (0.1 %) Aerosol, [place] instill 1 spray into each nostril twice [...] History Narrative with 3 children. Lives in [place], [place]. 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 Eats relatively healthy with fruits, vegetables, [...] Radiology Maile Hinojosa MD [facility] [address] [place], [place] [address] (Wo rk) 07/13/2022 Office Visit Endocrinology Maile iHnojosa MD [facility] [address] [place], [place] [address] (Wo rk) 07/25/2022 Office Visit Pulmonology Tong Norman MD [facility] Pulmonary Medici ne [place], [place] [address] (Wo rk) Scheduled Orders Name [...] 9.0 8.5 - 10.5 ALBERT BOYKIN mg/dL [facility] Specimen Anatomical Collection Method Collection Time Receive d Time (Source) Location / / Volume Laterality Blood 06/09/2021 4:57 PM 1 5:05 EDT PM EDT Resulting Agency Comment Spec In Lab Maile Hinojosa MD CHEMISTRY ORDERABLES Performing Organization Address City/[facility]/ZIP [facility] Phon e Number [address] PTH (06/09/2021 4:57 PM EDT) P athologist Signature PTH 59 15 - 65 ALBERT ASHUTOSH pg/mL [facility] Specimen Anatomical Collection Method Collection Time Receive d Time (Source) Location / / Volume Laterality Blood 06/09/2021 4:57 PM 1 5:05 EDT PM EDT Resulting Agency Comment Spec In Lab Maile Hinojosa MD CHEMISTRY ORDERABLES Performing Organization Address City/[facility] [address] Collagen Type I C-Telopeptide (06/09/2021 4:57 PM EDT) P athologist Signature CTX 283 pg/mL [facility] Comment: ?Unable to flag abnormal [...] loss. For additional information, please refer to https://education.[employer]/f aq/IMQ902 (This link is being provided for informa tional/ educational purposes only.) Test Performed by [employer], [employer] [facility], [address] [place] [address] 2014 08 Omar Kate M.D., Ph.D., Director [facility] c-crowd , [facility] [id number] Specimen Anatomical Collection Method Collection Time Receive d Time (Source) Location / / Volume Laterality Blood 06/09/2021 4:57 PM 1 EDT 12:14 PM EDT Resulting Agency Comment Spec In Lab Maile Hinojosa MD CHEMISTRY ORDERABLES Performing Organization Address City/State/[place] [address] documented in this encounter Visit Diagnoses Diagnosis Osteoporosis, unspecified osteoporosis t ype, unspecified pathological fracture presence documented in this encounter Care Teams Printer'S Assistant Relationship Specialty Start Date End Date Janet Davey APRN PCP - General Family Medicine 07/13/20 [address] [place] [address] documented as of this encounter
--- OUTSIDE RECORDS SUMMARY | 2022-06-14 11:13 | XMS_ITS | Encounter Summary ---
:1965 Author Organization [place] [address] Care Team Providers Name Role Phone EdJanet mendez Isa GONCALVES Primary Care Provider Reason for Visit Reason Comments Nephrolithiasis Encounter Details Date Type Department Care Team Description 07/13/2020 Office Visit Urology at [facility] Ferdinand Michael Nephrolithiasis ([facility] , Dx) [place], [place] CENTER [address] UROLOGY DEPT. [phone] [place] [address] Social History Tobacco Use Types Packs/Day Years [...] MD [facility] ER ENDOCRINOLOGY [place], [place] [address] (Wo rk) 07/13/2022 Office Visit Endocrinology Maile Hinojosa MD [facility] [address] MARMO[address] [place], [place] [address] (Wo rk) 07/25/2022 Office Visit Pulmonology Tong Norman MD [facility] Pulmonary Medici [place], [place] [address] (Wo rk) documented as of [...] limits Electronically signed by: Lakeisha vieyra MD, [facility] ([phone]), at 10:46 AM Thank you for letting us participate in the care of this patient. If you are a [facility] er and have any questions regarding this report, please contact the number above. For patients who have ques tions, please contact the [facility] professio nal that requested your imaging first. ??Lakeisha Aiken [facility] & Dept Chair - Rad Electronically Signed Final Report ?? 10:54 am Narrative 04/10/2022 10:55 AM EDT Renal ? (Signed Final 04/10/2022 10:54 am) PATIENT INFO: ID #: ? [id number] ?: ??[birth year] (56 yrs)(F) Name: ? JESSICA GTZ ?Visit Date: 04/10/2022 10:06 am PERFORMED BY: Performed By: ? Alo GARNER, Mathew lópez Attending: ?Nelli GILL, Adalberto Beltran Referred By: ?FERDINAND MICHAEL Location: ? [place] SERVICE(S) PROVIDED: URETRO - Retroperitoneal Complete - IMG 3517 ? [id number] INDICATIONS: kidney stone surveillance. no stones on [...] 10:54 am ) PATIENT INFO: ID #: [id number] : [birth year] (56 y rs)(F) Name: JESSICA GTZ Visit Date: 04/10 10:06 am PERFORMED BY: Performed By: Cece Prajapati RDMS Attending: Lakeisha Aiken MD Referred By: FERDINAND IMCHAEL JR Location: [place] SERVICE(S) PROVIDED: URETRO - Retroperitoneal Complete - [facility] [id number] INDICATIONS: kidney stone surveillance. no stones on [...] Electronically signed by: Lakeisha vieyra MD, Radiology [place] ([phone]), at 10:46 AM Thank you for letting us participate in the care of this patient. If you are a [facility] er and have any questions regarding this report, please contact the number above. For patients who have ques tions, please contact the [facility] professio nal that requested your imaging first. Lakeisha Aiken, [facility] & Dept C hair - Rad Electronically Signed Final Report 04/10 10:54 am Ferdinand Michael Jr., MD IMG US GEN ORDERABLES documented in this encounter Visit Diagnoses Diagnosis Nephrolithiasis - Primary Calculus of kidney Nephrolithiasis Calculus of kidney documented in this encounter Care Teams Corset Fitter Relationship Specialty Start Date End Date Janet Davey, INSURANCE FOLLOW UP REP PCP - General Family Medicine 07/13/20 [address] [place] [address] documented as of this encounter
--- OUTSIDE RECORDS SUMMARY | 2022-06-14 11:14 | XMS_ITS | Encounter Summary ---
:1965 Author Organization [facility] [place] [address] Care Team Providers Name Role Phone Monica Garcia MD Primary Care Provider Reason for Visit Reason Comments Cognitive Problems neuropsych eval Psychiatric (Routine) - Specialty Diagnoses / Procedures Referred By Contact Refer red To Contact Psychiatry Diagnoses concerns with recent memory loss Monica Garcia MD [facility] Psych Neuro 5d Procedures PRO NEUROPSYCHOLOGICAL TESTING,PER HOUR BY CIGAR MAKING MACHINE OPERATOR ALTITUDE CHAMBER TECHNICIAN Testing [address] [place] [address] [place] [address] Phone: Referral ID Status Reason Start Date Expiration Date Visits V isits Requested Authorized [id number] 04/16/2016 04/16/2017 1 1 Encounter Details Date Type Department Care Team Description 09/12/2016 Office Visit Psychiatry and Salvador Palmer Mild neuro cognitive [facility] at [facility] disorder [facility] PSYCHIATRY DEPT. 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 REASON FOR REFERRAL AND BACKGROUND: This is Stacy Albright???s first [facility] neuropsychological evaluation. She was referred in the [...] Anxiety Inventory (VLADIMIR); Avila Depression Inventory-II (BDI-II); [place] Naming Test (BNT); Brief Visuospatial Memory Test- Revised (BVMT-R); [place] Verbal Learning Test, Second Edition(CVLT-II); Comprehension of Complex Ideational Material (from BDAE; [place] Diagnostic Aphasia Examination); Trudy Antony Executive Functioning System (DKEFS, select subtests); Grooved Pegboard Test; Paced Auditory Serial Addition Test (PASAT, Lorenz version); Lateral Dominance Examination; Florentin Complex Figure Test; [place] Making Test; Nima Adult Intelligence Scale - 4th edition (WAIS-IV);Nima Memory Scale, Fourth Edition (WMS-IV, selected subtests); [place] Card Sorting Test (WCST). Total Time Spent in Testing, Interpretation, and Report Writin hours 20 minutes TEST RESULTS: Note: Tests were administered by a blow off worker. Descriptors are based on appropriate normative data [...] 51/60 Average 2 sec. pacing 39/60 Average [place] Making Test: Raw Score (T Score) Part [...] Palmer, Ph.D. Post-Doctoral Fellow Clinical Neuropsychologist Neuropsychology Mold SwabberRum Processing Operatormachine cell tuber A postdoctoral fellow in neuropsychology was involved in test administration, interpretation, and report development. The interpretation and integration of pertinent clinical information found in this report was directed and verified by the supervising neuropsychologist/licensed clinical psychologist. documented in this encounter Plan of Treatment Upcoming Encounters Date Type Specialty Care Team Description 07/13/2022 Appointment Radiology Maile Hinojosa MD [facility] MEDICAL CENT [address] JALEEL [place], [place] [address] (Rahul ascencio) 07/13/2022 Office Visit Endocrinology Maile Hinojosa MD [facility] MEDICAL [facility] DR JALEEL [place] [address] (Wo rk) 07/25/2022 Office Visit Pulmonology Tong Norman MD [facility] Pulmonary Medici [place], [place] [address] (Wo rk) documented as of this encounter Visit Diagnoses Diagnosis Mild neurocognitive disorder documented in this encounter Care Teams Nib Assembler Relationship Specialty Start Date End Date Monica Garcia MD PCP - General 01/06/13 02/27/17 [address] [place] [address] documented as of this encounter
--- OUTSIDE RECORDS SUMMARY | 2022-06-14 11:14 | XMS_ITS | Encounter Summary ---
:1965 Author Organization [facility] [place] [address] Care Team Providers Name Role Phone Suzie Mcintyre APRN Primary Care Provider Encounter Details Date Type Department Care Team Description 03/18/2017 Telephone Urology at [facility] Luis Michael Jr., [place] [facility] [place] [address] UROLOGY DEPT. [phone] [place], [place] [address] (Wo rk) Social History Tobacco [...] negative cysto, I also suggested she undergo STONEMASON HELPER evaluation to assess for possible STONEMASON HELPER source for bloodyspotting. She will proceed in this fashion. If sooner cystoscopy available with Naida Urias APRN, shewould be happy to see [...] Maile Hinojosa MD [facility] ENDOCRINOLOGY [place], [place] [address] (Wo rk) 07/13/2022 Office Visit Endocrinology Maile Hinojosa MD [facility] ENDOCRINOLOGY [place], [place] [address] (Wo rk) 07/25/2022 Office Visit Pulmonology Tong Norman MD [facility] Pulmonary Medici [place], [place] [address] (Wo rk) documented as of this encounter Visit Diagnoses Not on filedocumented in this encounter Care Teams Documentation Coordinator Relationship Specialty Start Date End Date Suzie Mcintyre APRN PCP - General Family Medicine 02/28/17 06/26/17 documented as of this encounter
--- OUTSIDE RECORDS SUMMARY | 2022-06-14 11:14 | XMS_ITS | Encounter Summary ---
:1965 [place] [address] Care Team Providers Name Role Phone Suzie Mcintyre APRN Primary Care Provider Encounter Details Date Type Department Care Team Description 04/18/2017 Surgery Main Operating Room Luis Michael Jr., Ken YSISAMAR, [facility] FULGURATION\BLADDER [facility] LESION\W\WO BX\[facility] DR THAN 0.5CM (WRVU 4.05) [facility] [place] [address] [place], [place] [address] [phone] (Wo rk) Social History Tobacco Use Types [...] directed NASONEX 50 mcg/actuation 0 05/18/2016 06/11/2018 [place], Non-Aerosol levonorgestrel (MIRENA) 1 each by Intrauterine route once. Lot [id number] 05/01/2016 05/01/2021 20 mcg/24 hr (5 years) [id number] IUD omeprazole (PRILOSEC) 20 PRN 0 03/22/2016 [...] 8 patch 11 ??? NASONEX 50 mcg/actuation [place], Non-Aerosol 0 ??? SUMAtriptan (IMITREX) 100 mg Tablet as needed for Migraine. 1 ??? levonorgestrel (MIRENA) 20 mcg/24 hr (5 years) IUD 1 each by Intrauterine route once. Lot [id number] ??? multivitamin (THERAGRAN) tablet Take 1 tablet [...] Perez MD - 04/18/2017 1:31 PM EDT [facility] Operative Note Patient Name: Stacy Albright : [id number] MR#: [id number] Case Date: 04/18/2017 Surgeon: Surgeon(s) and Role: * Luis Michael Jr., MD - Primary * Neil Peerz MD Preoperative diagnosis: small bladder lesion Postoperative [...] Operative Note Patient Name: Stacy Albright : [id number] MR#: [id number] Case Date: 04/18/2017 Surgeon: Surgeon(s) and Role: [...] Description 07/13/2022 Appointment Radiology Maile Hinojosa MD [facility] MEDICAL [facility] DR JALEEL [place] [address] (Wo rk) 07/13/2022 Office Visit Endocrinology Maile Hinojosa MD [facility] MEDICAL [facility] DR JALEEL [place] [address] (Wo rk) 07/25/2022 Office Visit Pulmonology Tong Norman MD One [facility] er Pulmonary Medici [place], [place] [address] (Wo rk) documented as of this [...] Component Value Ref Test Analysis Performed At [facility] Range Method Time Signature Surgical [id number] ? Location: [facility]; [facility]; [facility] Report The signing pathologist has (i) examined [...] MD PATHOLOGY/CYTOLOGY ORDERABLE S Performing Organization Address City/[facility]/[place] [address] Specimen to Pathology (surgical or derm) (04/18/2017 1:17 PM EDT) Specimen Anatomical Collection Method Collection Time Receive d Time (Source) Location / / Volume Laterality AP Specimen 04/18/2017 1:17 PM 7 1:17 EDT PM EDT Narrative [facility] - 04/18/2017 1:17 PM EDT Specimen requisition ordered. ??Separate Pathology report to follow Luis Michael Jr., MD PATHOLOGY/CYTOLOGY ORDERABLE S Performing Organization Address City/[facility]/[place] [address] documented in this encounter [...] Provider: Romy Ballesteros MD) 2 g, Intravenous, CIGAR PACKER TO O.R., 1 dos e, Shanta 04/18/17 [...] Routine documented in this encounter Care Teams Health Counselor Relationship Specialty Start Date End Date Suzie Mcintyre APRN PCP - General Family Medicine 02/28/17 06/26/17 documented as of this encounter
--- OUTSIDE RECORDS SUMMARY | 2022-06-14 11:14 | XMS_ITS | Encounter Summary ---
:1965 Author Organization [facility] Address [address] [place] [address] Care Team Providers Name Role Phone Sarah Young APRN Primary Care Provider [phone] Encounter Details Date Type Department Care Team Description 08/05/2017 Hospital Encounter [place] [facility] [place]da Ron, Encounter for One [facility] GASOLINE ENGINE ASSEMBLER screening mammogram Drive [facility] for breast cancer [place], [place] CENTER [address] OBSTETRICS & [phone] GYNECOLOGY [place] [id number] Social History Tobacco Use Types Packs/Day Years [...] (0.1 %) Aerosol, each nostril twice a [facility] day SUMAtriptan (IMITREX) as needed for 1 [...] morning. NASONEX 50 mcg/actuation 0 05/18/2016 06/11/2018 [facility], Non-Aerosol levonorgestrel (MIRENA) 1 each by Intrauterine route once. Lot tu01 8ac 0 05/01/2016 05/01/2021 20 mcg/24 hr (5 years) [id number] IUD omeprazole (PRILOSEC) 20 PRN 0 03/22/2016 [...] [facility] [address] [place]EL [place], [place] [address] (Wo rk) 07/13/2022 Office Visit Endocrinology Maile Hinojosa MD [facility] [address] [place], [place] [address] (Wo rk) 07/25/2022 Office Visit Pulmonology Tong Norman MD [facility] Pulmonary Medici ne [place], [place] [address] (Wo rk) documented as of [...] No mammographic evidence of malignancy. RECOMMENDATION: The [employer] and The Society of [...] cancer documented in this encounter Care Teams Jewelry Estimator Relationship Specialty Start Date End Date Sarah Young APRN PCP - General Family Medicine 06/27/17 05/15/18 [address] [place] [address] documented as of this encounter
--- OUTSIDE RECORDS SUMMARY | 2022-06-14 11:14 | XMS_ITS | Encounter Summary ---
:1965 Author Organization [facility] [place] [address] Care Team Providers Name Role Phone Sarah Young APRN Primary Care Provider [phone] Encounter Details Date Type Department Care Team Description 06/27/2017 Orders Only Endocrinology at [facility] Cuate Pearl MD Osteoporosis, [facility] DR osteoporosis type, [place] [address] ENDOCRINOLOGY unspecified [phone] [place], [place] [address] 6 pathological fracture [phone] presence (Work) Social History Tobacco Use Types [...] [facility] DR MARMOLEJO [place], [place] [address] (Wo rk) 07/13/2022 Office Visit Endocrinology Maile Hinojosa MD [facility] DR MARMOLEJO [place], [place] [address] (Wo rk) 07/25/2022 Office Visit Pulmonology Tong Norman MD [facility] Pulmonary Medici [place], [place] [address] (Wo rk) documented as of this encounter Results Calcium (06/27/2017 3:22 PM EDT) athologist Signature Calcium 9.1 8.5 - 10.5 ALBERT BOYKIN mg/dL [facility] Specimen Anatomical Collection Method Collection Time Receive d Time (Source) Location / / Volume Laterality Blood specimen 06/27/2017 3:22 PM 017 3:29 (specimen) EDT PM EDT Resulting Agency Comment Spec In Lab Cuate Hall MD CHEMISTRY ORDERABLES Performing Organization Address City/[facility]/[place]IP [place] [address] Vitamin D, 25-Hydroxy (06/27/2017 3:22 PM EDT) athologist Signature 25-OH Vit D 32 30 - 100 [facility] Total ng/mL [facility] Comment: Deficient <10 ng/mL Insufficient 10 to 29 ng/mL Sufficient 30 to 100 ng/mL Potential Intoxication >100 ng/mL According to the US National Osteoporosi s Foundation, Vitamin D concentrations >30 ng/mL are sufficient to protect bone health. ??The National Kidney Foundation has similarly stated that pat ients with Vitamin D concentrations <30ng/mL should be considered to be insu fficient or deficient. http://[address].com/nkf-guidelines http://[address].com/nejm-VitD The [employer] i[employer] Vitamin D Immunoassay detec [...] Organization Address City/State/[place] [address] PTH (06/27/2017 3:22 PM EDT) P athologist Signature PTH 41 15 - 65 [facility] pg/mL [facility] Specimen Anatomical Collection Method Collection Time Receive d Time (Source) Location / / Volume Laterality Blood specimen 06/27/2017 3:22 PM 017 3:29 (specimen) EDT PM EDT Resulting Agency Comment Spec In Lab Cuate Hall MD CHEMISTRY ORDERABLES Performing Organization Address City/[facility]/[place]IP [place] [address] documented in this encounter Visit Diagnoses Diagnosis Osteoporosis, unspecified osteoporosis t ype, unspecified pathological fracture presence documented in this encounter Care Teams Instructional Leader Relationship Specialty Start Date End Date Sarah Young APRN PCP - General Family Medicine 06/27/17 05/15/18 [address] [place] [address] documented as of this encounter
--- OUTSIDE RECORDS SUMMARY | 2022-06-14 11:14 | XMS_ITS | Encounter Summary ---
:1965 Author Organization [facility] [place] [address] Care Team Providers Name Role Phone Doreen Larios Primary Care Provider [phone] Encounter Details Date Type Department Care Team Description 06/11/2018 Office Visit Urology at [facility] Ferdinand Pennington History of [facility] MD Jules nephrolithiasis [facility] [address] UROLOGY DEPT. [phone] [place] [address] Social History Tobacco Use Types Packs/Day Years [...] Hinojosa MD [facility] ENDOCRINOLOGY [place], [place] [address] (Wo silva) 07/13/2022 Office Visit Maile Matson MD [facility] DR MARMOLEJO [place], [place] [address] (Wo rk) 07/25/2022 Office Visit Pulmonology Tong Norman MD [facility] Pulmonary Medici [place], [place] [address] (Rahul ascencio) documented as of [...] signed by: Celine zee MD, [facility] ([phone]), at 3:56 PM ?Celine Anna, Staff Physician Electronically Signed Final Report ?? 04:04 pm Narrative 06/30/2019 4:05 PM EST Renal ? (Signed Final 06/30/2019 04:04 pm) PATIENT INFO: ID #: ? [id number] ?: ??[birth year] (53 yrs) Name: ? JESSICA GTZ ?Visit Date: 06/30/2019 03:50 pm PERFORMED BY: Performed By: ? Humberto Donnelly RDMS Attending: ?Shoshana GILL, Lela Narayan Referred By: ?[facility]AND [facility] Location: ? [place] SERVICE(S) PROVIDED: ??URETRO - Retroperitoneal Complete - I [id number] ? [id number] INDICATIONS: ??? stones COMPARISON: Ultrasound: Renal / [...] 04:04 pm ) PATIENT INFO: ID #: [id number] : [birth year] (53 y rs) Name: JESSICA GTZ Visit Date: 06/30 03:50 pm PERFORMED BY: Performed By: Humberto Donnelly RDMS Attending: Celine Anna MD Referred By: FERDINAND PENNINGTON JR Location: [place] SERVICE(S) PROVIDED: URETRO - Retroperitoneal Complete - [facility] 3517 [id number] INDICATIONS: ? stones COMPARISON: Ultrasound: Renal / [...] signed by: Celine zee MD, [facility] ([phone]), at 3:56 PM Celine Anna, Staff Physician Electronically Signed Final Report 06/30 04:04 pm Ferdinand Pennington Jr., MD [facility] GEN ORDERABLES documented in this encounter Visit Diagnoses Diagnosis History of nephrolithiasis Personal history of urinary calculi History of nephrolithiasis Personal history of urinary calculi documented in this encounter Care Teams Rubbish Collector Relationship Specialty Start Date End Date Doreen Larios PA PCP - General Family Medicine 05/16/18 06/22/18 documented as of this encounter
--- OUTSIDE RECORDS SUMMARY | 2022-06-14 11:14 | XMS_ITS | Encounter Summary ---
:1965 Author Organization [facility] [place] [address] Care Team Providers Name Role Phone Doreen Larios Primary Care Provider [phone] Encounter Details Date Type Department Care Team Description 06/11/2018 Hospital Encounter Ultrasound at [facility] Ferdinand Pennington Nephrolithiasis [facility] [place] [address] UROLOGY DEPT. [phone] [place], [place] [address] Social History Tobacco Use Types [...] (0.1 %) Aerosol, each nostril twice a [place] day SUMAtriptan (IMITREX) as needed for 1 [...] 05/01/2016 05/01/2021 20 mcg/24 hr (5 years) [id number] IUD omeprazole (PRILOSEC) 20 PRN 0 03/22/2016 [...] Hinojosa MD [facility] ER ENDOCRINOLOGY [place], [place] [address] (Wo rk) 07/13/2022 Office Visit Endocrinology Maile Hinojosa MD [facility] ER ENDOCRINOLOGY [place], [place] [address] (Wo rk) 07/25/2022 Office Visit Pulmonology Tong Norman MD [facility] Pulmonary Mediceduardo ne [place], [place] [address] (Wo rk) documented as of [...] 03:13 pm) PATIENT INFO: ID #: ? [id number] ?: ??[birth year] (52 yrs) Name: ? JESSICA GTZ ?Visit Date: 06/11/2018 03:00 pm PERFORMED BY: Performed By: ? Keya Hedrick RDMS Attending: ?Mallika Galindo MD Referred By: ?FERDINAND PENNINGTON JR Location: ? [place] SERVICE(S) PROVIDED: ??URETRO - Retroperitoneal Complete - I [id number] ? [id number] INDICATIONS: ??h/o renal stones; eval interval laird [...] 03:13 pm ) PATIENT INFO: ID #: [id number] : 61 (52 y rs) Name: JESSICA GTZ Visit Date: 06/11 03:00 pm PERFORMED BY: Performed By: Chetna Hedrick RDMS Attending: Mallika Galindo MD Referred By: FERDINAND PENNINGTON Location: [place] SERVICE(S) PROVIDED: URETRO - Retroperitoneal Complete - [facility] 3517 [id number] INDICATIONS: h/o renal stones; eval interval change [...] kidney documented in this encounter Care Teams Brief Writer Relationship Specialty Start Date End Date Doreen Larios PA PCP - General Family Medicine 05/16/18 06/22/18 documented as of this encounter
--- OUTSIDE RECORDS SUMMARY | 2022-06-14 11:14 | XMS_ITS | Encounter Summary ---
:1965 Author Organization [facility] [place] [address] Care Team Providers Name Role Phone Suzie Mcintyre APRN Primary Care Provider Encounter Details Date Type Department Care Team Description 03/13/2017 Orders Only Urology at [facility] Luis Michael Jr., MD [facility] [place] [address] UROLOGY DEPT. [phone] [place], [place] [address] (Wo rk) Social History Tobacco [...] Maile Hinojosa MD [facility] ER [place]OLOGY [place], [place] [address] (Wo rk) 07/13/2022 Office Visit Endocrinology Maile Hinojosa MD [facility] DR [place], [place] [address] (Wo rk) 07/25/2022 Office Visit Pulmonology Tong Norman MD [facility] Pulmonary Medici [place] [address] (Wo rk) documented as of this encounter Visit Diagnoses Not on filedocumented in this encounter Care Teams Client Server Developer Relationship Specialty Start Date End Date Suzie Mcintyre APRN PCP - General Family Medicine 02/28/17 06/26/17 documented as of this encounter
--- OUTSIDE RECORDS SUMMARY | 2022-06-14 11:14 | XMS_ITS | Encounter Summary ---
:1965 Author Organization [facility] [place] [address] Care Team Providers Name Role Phone Doreen Larios Primary Care Provider [phone] Encounter Details Date Type Department Care Team Description 06/10/2018 Orders Only Urology at [facility] Ferdinand Pennington Jr., Nephrolithiasis [facility] [place] [address] [facility] [phone] UROLOGY DEPT. [place], [place] [address] (Wo rk) Social History Tobacco [...] Appointment Radiology Maile Hinojosa MD [facility] ER DR MARMOLEJO [place], [place] [address] (Wo rk) 07/13/2022 Office Visit Endocrinology Maile Hinojosa MD [facility] ENDOCRINOLOGY [place], [place] [address] (Wo rk) 07/25/2022 Office Visit Pulmonology Tong Norman MD [facility] er Pulmonary Medici [place] [address] (Wo rk) documented as of this encounter [...] 03:13 pm) PATIENT INFO: ID #: ? [id number] ?: ??[birth year] (52 yrs) Name: ? JESSICA GTZ ?Visit Date: 06/11/2018 03:00 pm PERFORMED BY: Performed By: ? Keya Hedrick RDMS Attending: ?CordovaMallika valdez MD. Referred By: ?FERDINAND Curry GORGE OLMEDO Location: ? [employer] SERVICE(S) PROVIDED: ??URETRO - Retroperitoneal Complete - I [id number] ? [address] INDICATIONS: ??h/o renal stones; eval interval laird [...] 03:13 pm ) PATIENT INFO: ID #: [id number] : 61 (52 y rs) Name: JESSICA GTZ Visit Date: 06/11 03:00 pm PERFORMED BY: Performed By: Chetna Hedrick RDMS Attending: Mallika Galindo MD Referred By: FERDINAND PENNINGTON JR Location: [employer] SERVICE(S) PROVIDED: URETRO - Retroperitoneal Complete - [facility] [place]17 [address] INDICATIONS: h/o renal stones; eval interval change [...] 06/11 03:13 pm Ferdinand Pennington Jr., MD [facility] GEN ORDERABLES documented in this encounter Visit Diagnoses Diagnosis Nephrolithiasis Calculus of kidney Nephrolithiasis Calculus of kidney documented in this encounter Care Teams Configuration Management Consultant Relationship Specialty Start Date End Date oDreen Larios PA PCP - General Family Medicine 05/16/18 06/22/18 documented as of this encounter
--- OUTSIDE RECORDS SUMMARY | 2022-06-14 11:14 | XMS_ITS | Encounter Summary ---
:1965 Author Organization [facility] [place] [address] Care Team Providers Name Role Phone Suzie Mcintyre APRN Primary Care Provider Encounter Details Date Type Department Care Team Description 03/13/2017 Hospital Encounter [facility] at [facility] Nephrolithiasis [address] [place] [address] [place] [address] Social History Tobacco Use Types Packs/Day [...] directed NASONEX 50 mcg/actuation 0 05/18/2016 06/11/2018 [place], Non-Aerosol levonorgestrel (MIRENA) 1 each by Intrauterine route once. Lot tu01 8ac 0 05/01/2016 05/01/2021 20 mcg/24 hr (5 years) [id number] IUD omeprazole (PRILOSEC) 20 PRN 0 03/22/2016 [...] Appointment Radiology Maile Hinojosa MD [facility] ER ENDOCRINOLOGY [place], [place] [address] (Wo rk) 07/13/2022 Office Visit Endocrinology Maile Hinojosa MD [facility] ER DR JALEEL [place], [place] [address] (Wo rk) 07/25/2022 Office Visit Pulmonology Tong Norman MD [facility] er Pulmonary Medici [place], [place] [address] (Wo rk) documented [...] kidney documented in this encounter Care Teams Global Supply Chain Director Relationship Specialty Start Date End Date Rincon, Suzie G, VICE PRESIDENT QUALITY PCP - General Family Medicine 02/28/17 06/26/17 documented as of this encounter
--- OUTSIDE RECORDS SUMMARY | 2022-06-14 11:14 | XMS_ITS | Encounter Summary ---
:1965 Author Organization [facility] Address One [address] [place] [address] Care Team Providers Name Role Phone Monica Garcia MD Primary Care Provider Reason for Visit Reason Comments Annual Exam Encounter Details Date Type Department Care Team Description 08/02/2016 Office Visit Obstetrics and Ida Ron, Encounter for [place]cology [place] [facility] [employer]IVATE [employer]ANCH EXCHANGE SERVICE ADVISER gy[facility]ological [facility] examinati on without Drive [address]ENTER DR abnormal finding [place], [place] OBSTETRICS & [address] GYNECOLOGY [phone] [place], [place] [address] Social History Tobacco Use Types [...] in this encounter Progress Notes Ida Ron, PRIVATE BRANCH EXCHANGE SERVICE ADVISER - 08/02/2016 4:20 PM EST Reason for visit: Annual concert pianist exam ROS: FOOD GENERAL MANAGER: she states she had a yeast infection [...] History Procedure Laterality Date ??? Created by Jebbit [email or web address]([facility]) Procedure Date: 01/16/2008 ??? Lithotripsy ??? Knee surgery 03/01/14 Right knee; patella surgery FOOD GENERAL MANAGER History: Pt is a 50 year old [...] a new home in their town of [place], [place]. 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 Eats relatively healthy with fruits, vegetables, yogurt, [...] 8 patch 11 ??? NASONEX 50 mcg/actuation [place], Non-Aerosol 0 ??? SUMAtriptan (IMITREX) 100 mg Tablet 1 ??? levonorgestrel (MIRENA) 20 mcg/24 hr (5 years) IUD 1 each by Intrauterine route once. Lot [id number] ??? omeprazole (PRILOSEC) 20 mg Capsule, Delayed [...] confirms, good tone, no hemorrhoids A: Unremarkable concert pianist exam P: F/U one yr documented in this encounter Plan of Treatment Upcoming Encounters Date Type Specialty Care Team Description 07/13/2022 Appointment Radiology Maile Hinojosa MD [facility] ER ENDOCRINOLOGY [place], [place] [address] (Wo rk) 07/13/2022 Office Visit Endocrinology Maile Hinojosa MD [facility] DR MARMOLEJO [place], [place] [address] (Wo rk) 07/25/2022 Office Visit Pulmonology Tong Norman MD [facility] Pulmonary Medici ne [place], [place] [address] (Wo rk) documented as of this encounter Visit Diagnoses Diagnosis Encounter for gynecological examination without abnormal finding Routine gynecological examination documented in this encounter Care Teams Emergency Veterinary Assistant Relationship Specialty Start Date End Date Monica Garcia MD PCP - General 01/06/13 02/27/17 [address] [place] [address] documented as of this encounter
--- OUTSIDE RECORDS SUMMARY | 2022-06-14 11:14 | XMS_ITS | Encounter Summary ---
:1965 Author Organization [facility] Address [place] [place] [address] Care Team Providers Name Role Phone Sarah Young APRN Primary Care Provider [phone] Encounter Details Date Type Department Care Team Description 08/05/2017 Office Visit Obstetrics and Ida Ron, Encounter for Gynecology at [facility] SAWMILL MANAGER gynecological [facility] examinati on without Drive [address] abnormal finding [place], [place] OBSTETRICS & [address] GYNECOLOGY [phone] [place], [place] [address] Social History Tobacco Use Types [...] in this encounter Progress Notes Ida Ron, SAWMILL MANAGER - 08/05/2017 7:00 AM EST Reason for visit: Annual signal person exam ROS: ASBESTOS REMOVAL WORKER: No urinary inc, no vaginal itching, burning, [...] History: Procedure Laterality Date ??? CREATED BY [employer] Cathy(MSUROL) Procedure Date: 01/16/2008 ??? KNEE SURGERY 03/01/14 Right knee; patella surgery ??? LITHOTRIPSY ? ? PRO CYSTOURETHROSCOPY, FULGUR <.5CM LESN N/A 04/18/2017 CYSTO, FULGURATION\BLADDER LESION\W\WO BX\LESS THAN 0.5CM (WRVU 4.05) performed by Luis Michael Jr., MD at [facility] MAIN OR ASBESTOS REMOVAL WORKER History: Pt is a 51 year old [...] a new home in their town of [place], [place]. 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 Eats relatively healthy with fruits, vegetables, yogurt, [...] azelastine (ASTELIN) 137 mcg (0.1 %) Aerosol, [place] instill 1 spray into each nostril [...] 1 each by Intrauterine route once. Lot [id number] ??? omeprazole (PRILOSEC) 20 mg Capsule, Delayed [...] confirms, good tone, no hemorrhoids A: Unremarkable signal person exam Cervical erosion possible due to IUD [...] History: Procedure Laterality Date ??? CREATED BY [employer]) Procedure Date: 01/16/2008 ??? KNEE SURGERY 03/01/14 Right knee; patella surgery ??? LITHOTRIPSY ? ? PRO CYSTOURETHROSCOPY, FULGUR <.5CM LESN N/A 04/18/2017 CYSTO, FULGURATION\BLADDER LESION\W\WO BX\LESS THAN 0.5CM (WRVU 4.05) performed by Luis Michael Jr., MD at [facility] MAIN OR Social History Social History ??? [...] a new home in their town of [place], [place]. 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 Eats relatively healthy with fruits, vegetables, yogurt, [...] 07/13/2022 Appointment Radiology Maile Hinojosa MD [facility] [address] MARMOLEJO [place], [place] [address] (Wo rk) 07/13/2022 Office Visit Endocrinology Maile Hinojosa MD [facility] ER ENDOCRINOLOGY [place], [place] [address] (Wo rk) 07/25/2022 Office Visit Pulmonology Tong Norman MD [facility] er Pulmonary Medici ne [place], [place] [address] (Wo rk) documented as of this encounter Procedures Procedure Name Priority Date/Time Associated Diagnosis Comme nts ASBESTOS REMOVAL WORKER CYTOLOGY Routine 08/05/2017 9:41 Results for this INTERPRETATION AM EST procedure are in the results section. ASBESTOS REMOVAL WORKER CYTOLOGY FINAL Routine 08/05/2017 9:41 Result s for this REPORT AM EST procedure are i n the results section. CYTOPATHOLOGY Routine 08/05/2017 9:41 Encounter for Results fo r this GYNECOLOGICAL AM EST gynecological procedure are in examination without the resu lts abnormal finding section. documented in this encounter Results Continuous Loft Operator Cytology Final Report (08/05/2017 9:41 AM EST) Component Value Ref Test Analysis Performed At [facility] Range Method Time Signature Continuous Loft Operator Cytology ? Location: [address] [place] [address] Final Report [place] The signing pathologist has (i) examined the relevant preparation(s) for the [facility]IAL specimen(s) and (ii) rendered or confirmed the diagnosis(es) . HOSPITAL LABORATORY . ? Continuous Loft Operator Final DIAGNOSIS Normal Negative for Intraepithelial Lesion or Malignancy (NILM). For consensus guidelines for the management of c ervical cancer screening test results, please see: ?? http://www.asccp.org . Electronically signed by: ??Heladio CÁRDENAS(ASCP)Salma Verified: ??08/16/2017 ?Contemporary Or Modern Dancer Performed at: ??-[facility] Dept. of Pathology, [place], [place] HPV RESULTS Not applicable (HPV testing either not indicated or not requested by clinician). STATEMENT OF ADEQUACY Specimen submitted is satisfactory. Endocervical component present. CLINICAL INFORMATION HPV Option: ?Reflex HPV Preparation: ? Liquid based Pap Specimen Source: ? Cervical/Endocervical LMP: ? n/a Hormones?: ? Yes Hysterectomy?: ? No ?: ? No ?: ? No I.U.D.?: ? Yes Pelvic Radiation: ?No Prior ASBESTOS REMOVAL WORKER Therapy?: ?Cryotherapy Hist Abnl Pap/Biopsy?: ?? Yes, [...] variables. For further information please contact the [facility] Laboratory. Reference: Devika LEON. Professor Of Fine Art of Pap Smear Results. In: Sukumar BS, Roni CALLEJAS, e aníbal. The Pap Smear. [place]: Jonah, 2002: 71-77. Specimen (Source) Anatomical Collection Method Collection Time Re ceived Time Location / / Volume Laterality 08/05/2017 9:41 AM EST Ida Dayna Asaf TEIXEIRAN PATHOLOGY/CYTOLOGY ORDERABLE S Performing Organization Address City/State/[place] [address] ASBESTOS REMOVAL WORKER Cytology Interpretation (08/05/2017 9:41 AM EST) [facility] Method Time Signature Continuous Loft Operator Cytology NILM [facility] LABORATORY Comment: Continuous Loft Operator Cytology Final Report Acces kendall: [id number] Endocervical Component Present [facility] LABORATORY Specimen Anatomical Collection Method Collection Time Receive d Time (Source) Location / / Volume Laterality AP Specimen 08/05/2017 9:41 AM 7 EST 10:17 AM EST Ida Ron APRN PATHOLOGY/CYTOLOGY ORDERABLE S Performing Organization Address City/[facility]/ZIP Code Phon e Number [address] Cytopathology Gynecological (08/05/2017 9:41 AM EST) Specimen Anatomical Collection Method Collection Time Receive d Time (Source) Location / / Volume Laterality AP Specimen 08/05/2017 9:41 AM 7 9:41 EST AM EST Narrative [facility] LAB[facility] - 08/05/2017 9:41 AM EST Specimen requisition ordered. ??Separate Pathology report to follow Ida Ron APRN PATHOLOGY/CYTOLOGY ORDERABLE S Performing Organization Address City/[facility]/ZIP Code Phon e Number [address] documented in this encounter Visit Diagnoses Diagnosis Encounter for gynecological examination without abnormal finding Routine gynecological examination documented in this encounter Care Teams Sewing Machine Operator Zipper Relationship Specialty Start Date End Date Sarah Young APRN PCP - General Family Medicine 06/27/17 05/15/18 [address] [place] [address] documented as of this encounter
--- OUTSIDE RECORDS SUMMARY | 2022-06-14 11:14 | XMS_ITS | Encounter Summary ---
:1965 Author Organization [facility] [place] [address] Care Team Providers Name Role Phone Monica Garcia MD Primary Care Provider Encounter Details Date Type Department Care Team Description 08/02/2016 Hospital Encounter Mammography at [facility] Rosey Crabtree Visit for screening [facility] MD Ken mammogram [facility] [address] OBSTETRICS & [phone] [address] Social History Tobacco Use Types Packs/Day Years [...] directed NASONEX 50 mcg/actuation 0 05/18/2016 06/11/2018 [place], Non-Aerosol levonorgestrel (MIRENA) 1 each by Intrauterine route once. Lot [id number] 0 05/01/2016 05/01/2021 20 mcg/24 hr (5 years) [id number] IUD omeprazole (PRILOSEC) 20 PRN 0 03/22/2016 [...] 07/13/2022 Appointment Radiology Maile Hinojosa MD [facility] ER ENDOCRINOLOGY [place], [place] [address] (Wo rk) 07/13/2022 Office Visit Endocrinology Maile Hinojosa MD [facility] [place] [address] [place], [place] [address] (Wo rk) 07/25/2022 Office Visit Pulmonology Tong Norman MD [facility] er Pulmonary Medici [place], [place] [address] (Wo rk) documented as of [...] No mammographic evidence of malignancy. RECOMMENDATION: [employer] and The Society of [...] mammogram documented in this encounter Care Teams Button Tacker Relationship Specialty Start Date End Date Monica Garcia MD PCP - General 01/06/13 02/27/17 [address] [place] [address] documented as of this encounter
--- OUTSIDE RECORDS SUMMARY | 2022-06-14 11:14 | XMS_ITS | Encounter Summary ---
:1965 Author Organization [facility] [place] [address] Care Team Providers Name Role Phone Suzie Mcintyre APRN Primary Care Provider Encounter Details Date Type Department Care Team Description 04/18/2017 Hospital Encounter Same Day Program at Luis Michael Nephrolithiasis Marley Painter Jr., MD [facility] DR Camacho UROLOGY DEPT. [place], [place] [id number] [phone] Social History Tobacco Use Types Packs/Day Years [...] directed NASONEX 50 mcg/actuation 0 05/18/2016 06/11/2018 [place], Non-Aerosol levonorgestrel (MIRENA) 1 each by Intrauterine route once. Lot [id number] 8ac 0 05/01/2016 05/01/2021 20 mcg/24 hr (5 years) [id number] IUD omeprazole (PRILOSEC) 20 PRN 0 03/22/2016 [...] 8 patch 11 ??? NASONEX 50 mcg/actuation [place], Non-Aerosol 0 ??? SUMAtriptan (IMITREX) 100 mg Tablet as needed for Migraine. 1 ??? levonorgestrel (MIRENA) 20 mcg/24 hr (5 years) IUD 1 each by Intrauterine route once. Lot [id number] ??? multivitamin (THERAGRAN) tablet Take 1 tablet [...] Perez MD - 04/18/2017 1:31 PM EDT [facility] Operative Note Patient Name: Stacy Albright : [id number] MR#: [id number] Case Date: 04/18/2017 Surgeon: Surgeon(s) and Role: [...] Operative Note Patient Name: Stacy Albright : [id number] MR#: [id number] Case Date: 04/18/2017 Surgeon: Surgeon(s) and Role: [...] Hinojosa MD [facility] MEDICAL [facility] DR JALEEL [place], [place] [address] (Wo rk) 07/13/2022 Office Visit Endocrinology Maile Hinojosa MD [facility] ENDOCRINOLOGY [place], [place] [address] (Wo silva) 07/25/2022 Office Visit Pulmonology Tong Norman MD [facility] er Pulmonary Medici [place], [place] [address] (Wo rk) documented as of [...] Component Value Ref Test Analysis Performed At [facility] Range Method Time Signature Surgical [id number] ? Location: [facility]; A [facility] Report The signing pathologist has (i) [...] Organization Address City/State/[place] [address] Specimen to Pathology (surgical or derm) (04/18/2017 1:17 PM EDT) Specimen Anatomical Collection Method Collection Time Receive d Time (Source) Location / / Volume Laterality AP Specimen 04/18/2017 1:17 PM 7 1:17 EDT PM [address]T N[address] [facility] - 04/18/2017 1:17 PM EDT Specimen requisition ordered. ??Separate Pathology report to follow Luis Michael Jr., MD PATHOLOGY/CYTOLOGY ORDERABLE S Performing Organization Address City/[facility]/[place] [address] documented in this encounter [...] Provider: Romy Ballesteros MD) 2 g, Intravenous, MANAGER TEST TO O.R., 1 dos e, Shanta 04/18/17 [...] Routine documented in this encounter Care Teams Economics Faculty Member Relationship Specialty Start Date End Date Suzie Mcintyre APRN PCP - General Family Medicine 02/28/17 06/26/17 documented as of this encounter
--- OUTSIDE RECORDS SUMMARY | 2022-06-14 11:14 | XMS_ITS | Encounter Summary ---
:1965 Author Organization [facility] [address] Care Team Providers Name Role Phone Sarah Young APRN Primary Care Provider [phone] Encounter Details Date Type Department Care Team Description 07/26/2017 Telephone Urology at [facility] Luis Michael Jr., MD [facility] [place] [address] UROLOGY DEPT. [phone] [place], [place] [address] (Wo rk) Social History Tobacco [...] Hinojosa MD [facility] ER ENDOCRINOLOGY [place], [place] [address] (Wo rk) 07/13/2022 Office Visit Endocrinology Maile Hinojosa MD [facility] DR [place]EL [place], [place] [address] (Wo rk) 07/25/2022 Office Visit Pulmonology Tong Norman MD [facility] Medical [facility] Pulmonary Mediceduardo [place], [place] [address] (Wo rk) documented as of this encounter Visit Diagnoses Not on filedocumented in this encounter Care Teams Manager People Relationship Specialty Start Date End Date Sarah Young APRN PCP - General Family Medicine 06/27/17 05/15/18 [address] [place] [address] documented as of this encounter
--- OUTSIDE RECORDS SUMMARY | 2022-06-14 11:14 | XMS_ITS | Encounter Summary ---
:1965 Author Organization [facility] [place] [address] Care Team Providers Name Role Phone EdJanet mendez Isa GONCALVES Primary Care Provider Reason for Visit Reason Onset Date Comments Medication Refill 07/10/2018 Encounter Details Date Type Department Care Team Description 07/10/2018 Refill Obstetrics and Gynec ology at [facility] [place] [address] Social History Tobacco Use Types Packs/Day Years [...] Hinojosa MD [facility] ER DR MARMLOEJO [place], [place] [address] (Wo rk) 07/13/2022 Office Visit Endocrinology Maile Hinojosa MD [facility] ER ENDOCRINOLOGY [place], [place] [address] (Wo rk) 07/25/2022 Office Visit Pulmonology Tong Norman MD [facility] Pulmonary Medici [place], [place] [address] (Wo rk) documented as of this encounter Visit Diagnoses Not on filedocumented in this encounter Care Teams Lab Rn Relationship Specialty Start Date End Date Janet Davey APRN PCP - General Family Medicine 06/23/18 07/12/20 [address] [place] [address] documented as of this encounter
--- OUTSIDE RECORDS SUMMARY | 2022-06-14 11:14 | XMS_ITS | Encounter Summary ---
:1965 Author Organization [facility] [address] Care Team Providers Name Role Phone Monica Garcia MD Primary Care Provider Reason for Visit Reason Comments Follow-up Encounter Details Date Type Department Care Team Description 05/31/2016 Office Visit Obstetrics and Gynecology Ida Ron, SACHA [facility] Victor Manuel cifuentes [place] [address] GYNECOLOGY [phone] [place], [place] [address] (Wo rk) Social History Tobacco [...] MD [facility] DR MARMOLE[address] [place], [place] [address] (Wo rk) 07/13/2022 Office Visit Maile Matson MD [facility] DR [address] [place], [place] [address] (Wo rk) 07/25/2022 Office Visit Pulmonology Tong Norman MD [facility] Pulmonary Medici ne [place], [place] [address] (Wo rk) documented as of this encounter Visit Diagnoses Diagnosis IUD check up Surveillance of previously prescribed in trauterine contraceptive device documented in this encounter Care Teams Paper Cone Grader Relationship Specialty Start Date End Date Monica Garcia MD PCP - General 01/06/13 02/27/17 [address] [place] [address] documented as of this encounter
--- OUTSIDE RECORDS SUMMARY | 2022-06-14 11:14 | XMS_ITS | Encounter Summary ---
:1965 Author Organization [facility] [place] [address] Care Team Providers Name Role Phone Monica Garcia MD Primary Care Provider Reason for Visit Reason Comments Medication Refill Encounter Details Date Type Department Care Team Description 07/27/2016 [facility] Victor Manuel cifuentes OBSTETRICS & [place] [address] [place] [address] [phone] (Wo rk) Social History Tobacco Use Types [...] Hinojosa MD [facility] ENDOCRINOLOGY [place], [place] [address] (Wo rk) 07/13/2022 Office Visit Endocrinology Maile Hinojosa MD [facility] ENDOCRINOLOGY [place], [place] [address] (Wo rk) 07/25/2022 Office Visit Pulmonology Tong Norman MD [facility] Medical [facility] Pulmonary Medici [place], [place] [address] (Wo rk) documented as of this encounter Visit Diagnoses Not on filedocumented in this encounter Care Teams Financial Services Associate Relationship Specialty Start Date End Date Monica Garcia MD PCP - General 01/06/13 02/27/17 [address] [place] [address] documented as of this encounter
--- OUTSIDE RECORDS SUMMARY | 2022-06-14 11:14 | XMS_ITS | Encounter Summary ---
:1965 [place] [address] Care Team Providers Name Role Phone Suzie Mcintyer APRN Primary Care Provider Encounter Details Date Type Department Care Team Description 03/15/2017 Laboratory Appointment Lab 3L [facility] [place] [address] Social History Tobacco Use Types Packs/Day [...] Hinojosa MD [facility] ENDOCRINOLOGY [place], [place] [address] (Wo rk) 07/13/2022 Office Visit Endocrinology Maile Hinojosa MD [facility] DR MARMOLE[address] [place], [place] [address] (Wo rk) 07/25/2022 Office Visit Pulmonology Tong Norman MD [facility] Pulmonary Mediceduardo [place], [place] [address] (Wo rk) documented as of this encounter Procedures Procedure Name Priority Date/Time Associated Diagnosis Comme nts BASIC METABOLIC STAT 03/15/2017 2:36 PM Nephrolithiasis Res ults for this PANEL (NON-FASTING) EDT procedur e are in the results section. documented in this encounter Results Basic Metabolic Panel (non-fasting) (03/15/2017 2:36 PM EDT) athologist Signature Glucose Lvl 93 65 - 199 [facility] mg/dL [facility] LABORATORY Comment: Diabetes: >=200 mg/dL plus symp toms BUN 15 8 - 18 mg/dL [facility] Creatinine 0.82 0.70 - 1.20 mg/dL [facility] Comment: Please note that the pediatric reference intervals supplied above were not validated at [facility]. Results from pediatri c patients should be interpreted in conjunction to the patient's age, height and muscle mass. Sodium 137 135 - 145 mmol/L [facility] Potassium 4.1 3.5 - 5.0 mmol/L [facility] Comment: Please note: ??Patients with WBC >100,00 0 may have falsely elevated Potassium levels. ??For accurate Potassium quantif ication in these patients send serum separator tube (gold top) for subsequent determinations. ??Contact the Clinical Chemistry Laboratory if there are any qu estions. Chloride 101 98 - 107 mmol/L [facility] CO2 24 22 - 31 mmol/L [facility] Anion Gap 12 5 - 15 mmol/L [facility] Calcium 9.3 8.5 - 10.5 mg/dL [facility] Estimated GFR >60 >=60 [facility] Comment: This estimated GFR (eGFR) [...] the following links into your internet browser. [email or web address] [email or web address] Specimen Anatomical Collection Method Collection Time Receive d Time (Source) Location / / Volume Laterality Blood specimen 03/15/2017 2:36 PM 017 2:47 (specimen) EDT PM EDT Resulting Agency Comment Spec In Lab Luis Michael Jr., MD CHEMISTRY ORDERABLES Performing Organization Address City/State/[place] [address] documented in this encounter Visit Diagnoses Diagnosis Nephrolithiasis Calculus of kidney documented in this encounter Care Teams Medical Care Evaluation Specialist Relationship Specialty Start Date End Date Suzie Mcintyre APRN PCP - General Family Medicine 02/28/17 06/26/17 documented as of this encounter
--- OUTSIDE RECORDS SUMMARY | 2022-06-14 11:14 | XMS_ITS | Encounter Summary ---
:1965 Author Organization [facility] [place] [address] Care Team Providers Name Role Phone Suzie Mcintyre APRN Primary Care Provider Encounter Details Date Type Department Care Team Description 06/18/2017 Orders Only Obstetrics and [place]necology [place] [address] Social History Tobacco Use Types Packs/Day [...] Hinojosa MD [facility] DR MARMOLEJO [place], [place] [address] (Wo rk) 07/13/2022 Office Visit Endocrinology Maile Hinojosa MD [facility] DR MARMOLE[address] [place], [place] [address] (Wo rk) 07/25/2022 Office Visit Pulmonology Tong Norman MD [facility] Pulmonary [place], [place] [address] (Wo rk) documented as of this encounter Visit Diagnoses Not on filedocumented in this encounter Care Teams Physicist Astrophysics Relationship Specialty Start Date End Date Suzie Mcintyre APRN PCP - General Family Medicine 02/28/17 06/26/17 documented as of this encounter
--- OUTSIDE RECORDS SUMMARY | 2022-06-14 11:14 | XMS_ITS | Encounter Summary ---
:1965 Author Organization [facility] [address] Care Team Providers Name Role Phone Suzie Mcintyre APRN Primary Care Provider Reason for Visit Reason Comments Follow-up Encounter Details Date Type Department Care Team Description 04/09/2017 Office Visit Urology at [facility] Luis Michael History of renal stone [facility] [place] [address] UROLOGY DEPT. [phone] [place], [place] [address] Social History Tobacco Use Types [...] to void please call our office at [phone] before 5PM or [phone] after hours. Please call if: * you have copious blood in your urine * fevers greater than 101.3 F * you are unable to void The number for questions is [phone] before 5 PM weekdays and [phone] after 5 PM and weekends. Follow-up: with [...] negative cysto, I also suggested she undergo CRUSHER LOADER OPERATOR evaluation to assess for possible CRUSHER LOADER OPERATOR source for bloody spotting. In the interval [...] MD [facility] DR MARMOLEJO [place], [place] [address] (Wo rk) 07/13/2022 Office Visit Endocrinology Maile Hinojosa MD [facility] DR MARMOLEJO [place], [place] [address] (Wo rk) 07/25/2022 Office Visit Pulmonology Tong Norman MD [facility] Pulmonary Medici ne [place], [place] [address] (Wo rk) documented as of [...] calculi documented in this encounter Care Teams Water Rights Specialist Relationship Specialty Start Date End Date Suzie Mcintyre APRN PCP - General Family Medicine 02/28/17 06/26/17 documented as of this encounter
--- OUTSIDE RECORDS SUMMARY | 2022-06-14 11:14 | XMS_ITS | Encounter Summary ---
:1965 Author Organization [facility] Address [address] [place] [address] Care Team Providers Name Role Phone Sarah Young APRN Primary Care Provider [phone] Encounter Details Date Type Department Care Team Description 06/27/2017 Hospital Encounter XRay at [facility] [place], Osteoporosis, [address] GILL unspecified [place], [place] [facility] osteoporosis ty , [address] funes [phone] ENDOCRINOLOGY pathological [place] presence [address] Social History Tobacco Use [...] (0.1 %) Aerosol, each nostril twice a [place] day SUMAtriptan (IMITREX) as needed for 1 [...] morning. NASONEX 50 mcg/actuation 0 05/18/2016 06/11/2018 [place], Non-Aerosol levonorgestrel (MIRENA) 1 each by Intrauterine route once. Lot tu01 8ac 0 05/01/2016 05/01/2021 20 mcg/24 hr (5 years) [id number] IUD omeprazole (PRILOSEC) 20 PRN 0 03/22/2016 [...] MD [facility] ENDOCRINOLOGY [place], [place] [address] (Wo rk) 07/13/2022 Office Visit Endocrinology Maile Hinojosa MD [facility] ENDOCRINOLOGY [place], [place] 0[address] (Wo rk) 07/25/2022 Office Visit Pulmonology Tong Norman MD [facility] Pulmonary Medici ne [place], [place] 0[address] (Wo rk) documented as [...] sheet and do not have access to [employer], please contact Radiology Transcrip tion at [phone] Saturday thru Saturday 8am-4pm. Narrative 06/27/2017 4:50 [...] icant change. The measured changes in comparison [facility] study are not large enough in [...] esau mbar spine and left hip. Densitometer: Equinext A FINDINGS: Lowest T-score at the diagnost [...] icant change. The measured changes in comparison [facility] study are not large enough in [...] This is available through an interactive web-based V2contacta ce (http://[email or web address].ac.uk/FRAX/) and can be used to [...] measurements an d plots are available in [employer] under the imaging tab. Paper copies will be sent to providers without E- access. If you have received this report without th e data sheet and do not have access to [employer], please contact Radiology Transcrip tion at [phone] Saturday thru Saturday 8am-4pm. Cuate Hall MD IMG DEXA ORDERABLES documented in this encounter Visit Diagnoses Diagnosis Osteoporosis, unspecified osteoporosis t ype, unspecified pathological fracture presence documented in this encounter Care Teams Senior Microsoft Net Developer Relationship Specialty Start Date End Date Sarah Young APRN PCP - General Family Medicine 06/27/17 05/15/18 [address] [place] [address] documented as of this encounter
--- OUTSIDE RECORDS SUMMARY | 2022-06-14 11:14 | XMS_ITS | Encounter Summary ---
:1965 Author Organization [facility] [place] [address] Care Team Providers Name Role Phone Moniac Garcia MD Primary Care Provider Encounter Details Date Type Department Care Team Description 02/21/2017 Telephone Urology Elliot Tate MD [facility]3] [place] [address] UROLOGY DEPT [phone] [place], [place] [address] (Wo rk) Social [...] [facility] ENDOCRINOLOGY [place], [place] [address] (Wo rk) 07/13/2022 Office Visit Endocrinology Maile Hinojosa MD [facility] ENDOCRINOLOGY [place], [place] 0[address] (Wo rk) 07/25/2022 Office Visit Pulmonology Tong Norman MD [facility] Pulmonary Medici ne [place], [place] [address] (Wo rk) documented as of [...] 05:40 pm) PATIENT INFO: ID #: ? [id number] ?: ??[birth year] (51 yrs) Name: ? JESSICA GTZ ?Visit Date: 03/13/2017 02:56 pm PERFORMED BY: Performed By: ? Keya Hedrick RDMS Attending: ?Luna GILL, Genie Dumont Resident: ? Chula GILL, Kip Rojas Referred By: ?FERDINAND Antoinette GORGE Location: ? [place] SERVICE(S) PROVIDED: ??URETRO - Retroperitoneal Complete - I [id number] ? [id number] INDICATIONS: ??pt with history of stones, eval [...] 05:40 pm ) PATIENT INFO: ID #: [id number] : [birth year] (51 y rs) Name: JESSICA GTZ Visit Date: 03/13 02:56 pm PERFORMED BY: Performed By: Chetna Hedrick RDMS Attending: Genie Carrasco MD Resident: Kip Quiros MD Referred By: FERDINAND MICHAEL JR Location: [place] SERVICE(S) PROVIDED: URETRO - Retroperitoneal Complete - IM [id number] INDICATIONS: pt with history of stones, eval [...] kidney documented in this encounter Care Teams Cloth Folder Hand Relationship Specialty Start Date End Date Monica Garcia MD PCP - General 01/06/13 02/27/17 [address] [place] [address] documented as of this encounter
--- OUTSIDE RECORDS SUMMARY | 2022-06-14 11:14 | XMS_ITS | Encounter Summary ---
:1965 Author Organization [facility] [place] [address] Care Team Providers Name Role Phone Suzie Mcintyre APRN Primary Care Provider Encounter Details Date Type Department Care Team Description 02/19/2017 Telephone [place] [facility] [place] Michael Jr., MD [facility] [place] [address] UROLOGY DEPT. [phone] [place], [place] [address] (Wo rk) Social History Tobacco [...] Hinojosa MD [facility] ER [address] [place]LEEL [place] [address] (Wo rk) 07/13/2022 Office Visit Endocrinology Maile Hinojosa MD [facility] [address] [place], [place] [address] (Wo rk) 07/25/2022 Office Visit Pulmonology Tong Norman MD [facility] er Pulmonary Medici [place], [place] 037 (Wo rk) documented as of this encounter Visit Diagnoses Not on filedocumented in this encounter Care Teams Garde Manger Relationship Specialty Start Date End Date Suzie Mcintyre APRN PCP - General Family Medicine 02/28/17 06/26/17 documented as of this encounter
--- OUTSIDE RECORDS SUMMARY | 2022-06-14 11:14 | XMS_ITS | Encounter Summary ---
:1965 Author Organization [facility] [place] [address] Care Team Providers Name Role Phone Suzie Mcintyre APRN Primary Care Provider Reason for Visit Reason Comments Hematuria Encounter Details Date Type Department Care Team Description 04/09/2017 [place] [facility] [place] [facility] [place] Michael Microscopic hematuria [facility] [place] [address] UROLOGY DEPT. [phone] [place], [place] [address] Social History Tobacco Use Types [...] 07/13/2022 Appointment Radiology Maile Hinojosa MD [facility] ENDOCRINOLOGY [place], [place] 0375 (Wo rk) 07/13/2022 Office Visit Endocrinology Maile Hinojosa MD [facility] [address] [place], [place] 0[address] (Wo rk) 07/25/2022 Office Visit Pulmonology Tong Norman MD [facility] Pulmonary Medici ne [place], [place] [address] (Wo rk) documented as of this encounter Procedures Procedure Name Priority Date/Time Associated Diagnosis Comme nts CYSTOSCOPY Routine 04/09/2017 10:36 AM History of renal Resu lts for this EDT stone procedure are i n the results section . documented in this encounter Visit Diagnoses Diagnosis Microscopic hematuria documented in this encounter Care Teams Waiter Relationship Specialty Start Date End Date Suzie Mcintyre APRN PCP - General Family Medicine 02/28/17 06/26/17 documented as of this encounter
--- OUTSIDE RECORDS SUMMARY | 2022-06-14 11:14 | XMS_ITS | Encounter Summary ---
:1965 Author Organization [facility] [place] [address] Care Team Providers Name Role Phone Sarah Young APRN Primary Care Provider [phone] Reason for Visit Reason Comments Cognitive Problems Neuropsychological Re-evalua tion Consultation (Routine) - Closed Specialty Diagnoses / Procedures Referred By Contact Refer red To Contact Psychiatry Diagnoses [facility] Suzie Mcintyre, Salvador Kim, PhD Procedures PRO NEUROPSYCHOLOGICAL TESTING,PER HOUR BY TOXICOLOGY TEACHER MOE TUCKER [address] [facility] [address] [address] [place] [address] Fax: Referral ID Status Reason Start Date Expiration Date Visits V isits Requested Authorized [id number] Closed Consult & 02/28/2017 02/28/2018 1 1 Test [facility] Encounter Details Date Type Department Care Team Description 08/15/2017 Office Visit Psychiatry and Jessica Shelton los s; Behavioral Health at A, PhD Mild neurocognitive disorder [facility] [place]UR[facility]Y [facility] DEPT. 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 REASON FOR REFERRAL AND BACKGROUND This is Stacy Albright???s second [facility] neuropsychological evaluation. She was referred for reassessment [...] of grades. 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 She is and has been remarried for [...] Ms. Albright completed a neuropsychological evaluation at [facility] on09/12/2016 (Christine Raza PsyD and Salvador Palmer, [...] Word Choice (WCT)]; Avila Anxiety Inventory (VLADIMIR); Avlia Depression Inventory-II (BDI-II); [place] Naming Test (BNT); Brief Visuospatial Memory Test- Revised (BVMT-R); [place] Verbal Learning Test, Second Edition(CVLT-II); Comprehension of Complex Ideational Material (from BDAE; Chicago Diagnostic Aphasia Examination); Trudy-Antony Executive Function System (D-KEFS, selected subtests); Grooved Pegboard Test; Lateral Dominance Examination; Paced Auditory Serial Addition Test (PASAT, Lorenz version); Florentin Complex Figure Test (RCFT); [place] Making Test; Nima Adult Intelligence Scale - 4th edition (WAIS-IV); Nima Memory Scale, Fourth Edition (WMS-IV, selected subtests); [place] Card Sorting Test (WCST). Total time spent in testing, interpretation, and report writin hours, 30 minutes TEST RESULTS: Note: All tests were administered by a backup operator. Descriptors are based on appropriate normativedata and [...] Average 2 sec. pacing 39/60 36/60 Average [place] Making Test: Raw Score (T Score) Raw [...] Neuropsychology Board Certified Clinical Neuropsychologist Licensed Psychologist medical record clerk A postdoctoral fellow in neuropsychology was involved in test administration, interpretation, and report development. The interpretation and integration of pertinent clinical information found in this report was directed and verified by the supervising neuropsychologist/licensed clinical psychologist. documented in this encounter Plan of Treatment Upcoming Encounters Date Type Specialty Care Team Description 07/13/2022 Appointment Radiology Maile Hinojosa MD [facility] [address] [place], [place] [address] (Wo rk) 07/13/2022 Office Visit Endocrinology Maile Hinojosa MD [facility] [address] [place] [place], [place] [address] (Wo rk) 07/25/2022 Office Visit Pulmonology Tong Norman MD [facility] Pulmonary Medici [place], [place] [address] (Wo rk) documented as of this encounter Visit Diagnoses Diagnosis Memory loss Mild neurocognitive disorder documented in this encounter Care Teams Coding Analyst Relationship Specialty Start Date End Date Sarah Young APRN PCP - General Family Medicine 06/27/17 05/15/18 [address] [place] [address] documented as of this encounter
--- OUTSIDE RECORDS SUMMARY | 2022-06-14 11:14 | XMS_ITS | Encounter Summary ---
:1965 [place] [address] Care Team Providers Name Role Phone Suzie Mcintyre APRN Primary Care Provider Encounter Details Date Type Department Care Team Description 04/18/2017 Anesthesia Event Main Operating Room [facility] MD [facility] Victor Manuel c[place] [address] [place] [address] [phone] (Wo rk) Anesthesia Record Procedure Summary Procedure [...] KEON Peñaloza, Belle Estrada, KEON swartz), left; fucg-caf-eufvnq catheter system; 20 gauge; Marisol; distraction, intradermal [...] Ballesteros MD - 04/18/2017 3:30 PM EDT [facility] Department of Anesthesiology Post-procedure Note Patient: Stacy Albright Procedure Summary Date Anesthesia Start Anesthesia Stop Room / Location 04/18/17 1247 1343 MH OR 28 / [facility] MAIN OR Procedure Diagnosis Surgeon Responsible Provider CYSTO, FULGURATION\BLADDER LESION\W\WO BX\LESS THAN 0.5CM (WRVU 4.05) (N/A Bladder) (small bladder lesion) Luis Michael Jr., MD Chaimberg, Kathleen H, MD All Anesthesia Providers: Anesthesiologist: Marcelle Marquez MD Tow Boat Captain: Romy Ballesteros MD Last (1hr) Vitals: BP 118/80 (04/18/17 1445) Temp Pulse Resp SpO2 99 % (04/18/17 1500) Patient Location: PACU/[facility] Level of Consciousness: Awake and Alert Pain [...] History: Procedure Laterality Date ??? CREATED BY ColorModules E.S.W.LJoseph(Mor.slUROCinnamon) Procedure Date: 01/16/2008 ??? KNEE SURGERY 03/01/14 [...] Radiology Maile Hinojosa MD [facility] [address] [place], [place] [address] (Rahul ascencio) 07/13/2022 Office Visit Maile Matson MD [facility] [address] [place] [place], [place] [address] (Rahul ascencio) 07/25/2022 Office Visit Pulmonology Tong Norman MD [facility] Pulmonary Medici [place], [place] [address] (Rahul ascencio) documented as of this encounter Visit Diagnoses Not on filedocumented in this encounter Administered Medications Inactive Administered Medications - up to 3 most recent administrations Medication Order MAR Action Action Date Dose Rate Site ceFAZolin (ANCEF) 2g in dextrose 5% Given 04/18/2017 1:08 PM EDT 2 g 100 mL 2 g, Intravenous, CHASER HELPER TO O.R., 1 dose, On Shanta 04/18/17 [...] Routine documented in this encounter Care Teams Food Service Technician Relationship Specialty Start Date End Date Suzie Mcintyre APRN PCP - General Family Medicine 02/28/17 06/26/17 documented as of this encounter
--- OUTSIDE RECORDS SUMMARY | 2022-06-14 11:14 | XMS_ITS | Encounter Summary ---
:1965 Author Organization [facility] [place] [address] Care Team Providers Name Role Phone Monica Garcia MD Primary Care Provider Reason for Visit Reason Onset Date Comments Results 10/11/2016 Encounter Details Date Type Department Care Team Description 10/11/2016 Telephone Psychiatry and Behavioral Salvador Palmer, PhD Results Health at [facility] PSYCHIATRY DEPT. [facility] [place] [address] [place] [address] [phone] (Wo rk) Social History Tobacco Use Types [...] NEUROPSYCHOLOGICAL EVALUATION Patient Name: Stacy Albright MR#: [id number] Date of Evaluation: 09/12/2016 Age: 51 years Date of : Date of Feedback: 1965 10/11/2016 Referred By: Monica Garcia M.D. Mrs. Albright participated in a 30 minute telephone feedback session to discuss the results of her [facility] neuropsychological evaluation. Briefly, the pattern of [...] The report is available in full on [facility]. Thank you for referring Mrs. Albright for evaluation. Please contact us at [phone] if we can be of further assistance. Christine Raza Psy.D. Salvador Palmer, Ph.D. Post-Doctoral Fellow Clinical Neuropsychologist Neuropsychology Foundation DiggerProcess Camera Operatortool and production planner This note was prepared by Christine Raza Psy.D., Postdoctoral Fellow in Neuropsychology, under the supervision of Salvador Palmer Ph.D. documented in this encounter Plan of Treatment Upcoming Encounters Date Type Specialty Care Team Description 07/13/2022 Appointment Radiology Maile Hinojosa MD [facility] [address], [place] [address] (Rahul ascencio) 07/13/2022 Office Visit Endocrinology Maile Hinojosa MD [facility] [address] [place] [address] (Wo rk) 07/25/2022 Office Visit Pulmonology Tong Norman MD [facility] Pulmonary Medici [place], [place] [address] (Wo rk) documented as of this encounter Visit Diagnoses Not on filedocumented in this encounter Care Teams Manager Therapy Relationship Specialty Start Date End Date Monica Garcia MD PCP - General 01/06/13 02/27/17 [address] [place] [address] documented as of this encounter
--- OUTSIDE RECORDS SUMMARY | 2022-06-14 11:14 | XMS_ITS | Encounter Summary ---
:1965 Author Organization [facility] [place] [address] Care Team Providers Name Role Phone Monica Garcia MD Primary Care Provider Reason for Visit Reason Comments Contraception Encounter Details Date Type Department Care Team Description 05/01/2016 Office Visit Obstetrics and Ida Ron, Encounter for IUD insertion; Gynecology at [place] SWITCH BOX INSTALLER Unsatisfactory cervical Papanicolaou sme ar; [facility] Vulvar pa in [facility] [address] [place], [place] OBSTETRICS & [address] GYNECOLOGY [phone] [place], [place] [address] Social History Tobacco Use Types [...] FOR VISIT: IUD Placement, Pap, vulvar dryness Client Service Associate: pt reports starting after her period stopped [...] MD [facility] ER [address] [place]MO[address] [place], [place] [address] (Wo rk) 07/13/2022 Office Visit Endocrinology Maile Hinojosa MD [facility] [place] [address] [place], [place] [address] (Wo rk) 07/25/2022 Office Visit Pulmonology Tong Norman MD [facility] Pulmonary Medici ne [place], [place] [address] (Wo rk) documented as of this encounter Procedures Procedure Name Priority Date/Time Associated Comments Diagnosis HPV Routine 05/01/2016 5:32 PM Results f or this EDT procedure are i n the results section. CLIENT CONSULTANT CYTOLOGY Routine 05/01/2016 5:32 PM Results f or this INTERPRETATION EDT procedure are in the results section. CLIENT CONSULTANT CYTOLOGY FINAL Routine 05/01/2016 5:32 PM Res ults for this REPORT EDT procedure are i n the results section. CYTOPATHOLOGY Routine 05/01/2016 5:32 PM Encounter for IUD Res ults for this GYNECOLOGICAL EDT insertion procedure are in the results section. documented in this encounter Results CLIENT CONSULTANT Cytology Interpretation (05/01/2016 5:32 PM EDT) [facility] Method Time Signature Client Service Associate Cytology NILM [facility] LABORATORY Comment: Client Service Associate Cytology Final Report Acces kendall: [id number] Endocervical Component Present [facility] LABORATORY Specimen Anatomical Collection Method Collection Time Receive d Time (Source) Location / / Volume Laterality AP Specimen 05/01/2016 5:32 PM 6 8:09 EDT AM EDT Ida Ron APRN PATHOLOGY/CYTOLOGY ORDERABLE S Performing Organization Address City/State/[place] [address] Client Service Associate Cytology Final Report (05/01/2016 5:32 PM EDT) Component Value Ref Test Analysis Performed At [facility] Range Method Time Signature Client Service Associate Cytology [id number] ? Location: 5[facility] Final Report ASHUTOSH The signing pathologist has (i) examined the relevant preparation(s) for the [facility] specimen(s) and (ii) rendered or confirmed the diagnosis(es) . HOSPITAL LABORATORY . ? Client Service Associate Final DIAGNOSIS Normal Negative for Intraepithelial Lesion or Malignancy (NILM). For consensus guidelines for the management of c ervical cancer screening test results, please see: ?? http://www.asccp.org/guidelines . Electronically signed by: ??AVI Henson(ASCP), Suzie Ruzi Verified: ??05/04/2016 ?Plastic Sheets Finishing Supervisor Screened: ??05/04/2016 ?SLA HPV RESULTS HPV16 (Result) [...] Gen omics and Advanced Technology (CGAT) at [facility]. ? - David Avilez, PhD, [facility], [facility], Director-[facility] STATEMENT OF ADEQUACY Specimen submitted is satisfactory. Endocervical component p resent. CLINICAL INFORMATION HPV Option: ?Concurrent HPV and Pap Preparation: ? Liquid based Pap Specimen Source: ? Cervical/Endocervical LMP: ? 8/19/16 Hormones?: ? Yes Hysterectomy?: ? No ?: ? No ?: ? No I.U.D.?: ? No Pelvic Radiation: ?No Prior CLIENT CONSULTANT Therapy?: ?Cautery Hist Abnl Pap/Biopsy?: ?? Yes, [...] evalu ated with the assistance of the Inter[employer]el[employer] Pap Test Imaging System. Note: The Pap test is a screening test for cervical cancer with an inherent false-negative rate dependent upon several variables. ??For further information please contact the [facility]. Reference: ??Abendrotsharita CS. ? ?Public Utilities Sales Representative of Pap Smear Results. ??In: ??Sukumar BS, Roni HH, ed. ??The Pap Smear. ??[place]: ??Jonah, 15 10: ??71-77. Specimen (Source) Anatomical Collection Method Collection Time Re ceived Time Location / / Volume Laterality 05/01/2016 5:32 PM EDT Ida Ron APRN PATHOLOGY/CYTOLOGY ORDERABLE S Performing Organization Address City/State/[place] [address] HPV (05/01/2016 5:32 PM EDT) [facility] Method Time Signature HPV 16 NEGATIVE NEGATIVE [facility]OR[facility] HPV 18 NEGATIVE NEGATIVE [facility] HPV Other HR NEGATIVE NEGATIVE [facility] HPV See Comment ALBERT Interpretation [facility] LABORATORY Comment: NEGATIVE for high-risk HPV [...] APRN PATHOLOGY/CYTOLOGY ORDERABLE S Performing Organization Address City/[facility]/[place] [address] Cytopathology Gynecological (05/01/2016 5:32 PM EDT) Specimen Anatomical Collection Method Collection Time Receive d Time (Source) Location / / Volume Laterality AP Specimen 05/01/2016 5:32 PM 6 5:37 EDT PM EDT Narrative [facility] LAB[facility] ORY - 05/01/2016 5:37 PM EDT Specimen requisition ordered. ??Separate Pathology report to follow Resulting Agency Comment Spec In Lab Taryn Banks MD PATHOLOGY/CYTOLOGY ORDERABLE S Performing Organization Address City/State/[place] [address] documented in this encounter [...] Routine documented in this encounter Care Teams Real Estate Photographer Relationship Specialty Start Date End Date Monica Garcia MD PCP - General 01/06/13 02/27/17 [address] [place] [address] documented as of this encounter
--- OUTSIDE RECORDS SUMMARY | 2022-06-14 11:14 | XMS_ITS | Encounter Summary ---
:1965 Author Organization [facility] [place] [address] Care Team Providers Name Role Phone Suzie Mcintyre APRN Primary Care Provider Encounter Details Date Type Department Care Team Description 04/25/2017 Telephone Urology at [facility] Luis Michael Jr., MD [facility] [place] [address] UROLOGY DEPT. [phone] [place], [place] [address] (Wo rk) Social History Tobacco [...] Appointment Radiology Maile Hinojosa MD [facility] ENDOCRINOLOGY [place], [place] [address] (Wo rk) 07/13/2022 Office Visit Endocrinology Maile Hinojosa MD [facility] ENDOCRINOLOGY [place], [place] [address] (Wo rk) 07/25/2022 Office Visit Pulmonology Tong Norman MD [facility] Pulmonary Medici [place], [place] [address] (Wo rk) documented as of this encounter Visit Diagnoses Not on filedocumented in this encounter Care Teams Extrusion Press Supervisor Relationship Specialty Start Date End Date Suzie Mcintyre APRN PCP - General Family Medicine 02/28/17 06/26/17 documented as of this encounter
--- OUTSIDE RECORDS SUMMARY | 2022-06-14 11:14 | XMS_ITS | Encounter Summary ---
:1965 Author Organization [facility] [place] [address] Care Team Providers Name Role Phone Suzie Mcintyre APRN Primary Care Provider Reason for Referral Diagnostic Test (Routine) - Closed Specialty Diagnoses / Procedures Referred By Contact Refer red To Contact Radiology Diagnoses Nephrolithiasis Ferdinand Michael Jr., MD [facility] Rad Ct Scan Procedures CT Urogram [facility] [place] [address] [place] [address] Referral ID Status Reason Start Date Expiration Date Visits V isits Requested Authorized [id number] Closed Specialty 03/14/2017 05/12/2017 1 1 Service Requested Reason for Visit Reason Comments Flank Pain Encounter Details Date Type Department Care Team Description 03/13/2017 Office Visit Urology at [facility] Ferdinand Michael Jr., Nephrolithiasis [facility] Victor [place] [address] [facility] [phone] UROLOGY DEPT. [place], [place] [address] (Wo rk) Social History Tobacco [...] MD [facility] DR MARMOLEJO [place], [place] [address] (Wo rk) 07/13/2022 Office Visit Endocrinology Maile Hinojosa MD [facility] DR [address] [place], [place] [address] (Wo rk) 07/25/2022 Office Visit Pulmonology Tong Norman MD [facility] Pulmonary Medici [place], [place] [address] (Wo rk) documented as of [...] Signature Glucose Lvl 93 65 - 199 [facility] mg/dL [facility] Comment: Diabetes: >=200 mg/dL plus symp toms BUN 15 8 - 18 mg/dL [facility] Creatinine 0.82 0.70 - 1.20 mg/dL [facility] Comment: Please note that the pediatric reference intervals supplied above were not validated at [facility]. Results from pediatri c patients should be interpreted in conjunction to the patient's age, height and muscle mass. Sodium 137 135 - 145 mmol/L [facility] Potassium 4.1 3.5 - 5.0 mmol/L [facility] Comment: Please note: ??Patients with WBC >100,00 0 may have falsely elevated Potassium levels. ??For accurate Potassium quantif ication in these patients send serum separator tube (gold top) for subsequent determinations. ??Contact the Clinical Chemistry Laboratory if there are any qu estions. Chloride 101 98 - 107 mmol/L [facility] CO2 24 22 - 31 mmol/L [facility] Anion Gap 12 5 - 15 mmol/L [facility] Calcium 9.3 8.5 - 10.5 mg/dL [facility] Estimated GFR >60 >=60 ALBERT Curry [facility] Comment: This estimated GFR (eGFR) value [...] the following links into your internet browser. [email or web address] Specimen Anatomical Collection Method Collection Time Receive d Time (Source) Location / / Volume Laterality Blood specimen 03/15/2017 2:36 PM 017 2:47 (specimen) EDT PM EDT Resulting Agency Comment Spec In Lab Ferdinand Michael Jr., MD CHEMISTRY ORDERABLES Performing Organization Address City/[facility]/[place] [address] (ABNORMAL) Urine culture Clean Catch Urine (03/13/2017 5:50 PM EDT) [facility] FIGHTER Interactive Method Time Signature Urine Culture 1,000-9,000 ALBERT cfu/ml [facility] probable LABORATORY contaminant (A) Specimen (Source) Anatomical Collection Method Collection Time Re ceived Time Location / / Volume Laterality Urine specimen 03/13/2017 5:50 03/13/2017 5:50 obtained by clean PM EDT PM EDT catch procedure (specimen) Resulting Agency Comment Spec In Lab Ferdinand Michael Jr., MD MICROBIOLOGY - GENERAL ORDER MERLE Performing Organization Address City/[facility] [place] [address] (ABNORMAL) Urinalysis with reflex Culture (03/13/2017 4:52 PM EDT) [facility] FIGHTER Interactive Method Time Signature Glucose UA Negative Negative ALBERT DAUGHERTYASHUTOSH mg/dL [facility] Protein UA Negative Negative ALBERT ASHUTOSH mg/dL [facility] Bilirubin UA Negative Negative [facility] mg/dL [facility] Comment: Clinical correlation required for positi ve Urine Bilirubin results as false positive may occur with some drugs and d rug related products. If a false positive is suspected a serum total bili lloyd should be considered if clinically indicated. Urobilinogen UA Normal Normal mg/dL [facility] pH UA 6.0 5.0 - 8.0 [facility] Blood UA Small (A) Negative mg/dL [facility] Ketones UA Negative Negative mg/dL [facility] Nitrite UA Negative Negative [facility] Leukocytes UA Negative Negative [facility] Appearance UA Hazy (A) Clear [facility] Spec Delray UA 1.014 1.002 - 1.030 [facility] Color UA Yellow Yellow [facility] RBC UA <1 0 - 4 /HPF [facility] WBC UA 2 0 - 5 /HPF [facility] Bacteria UA Rare (A) None /HPF [facility] Squam Epith UA 1 <=4 /HPF [facility] Hyaline Cast UA 1 0 - 2 /LPF [facility] Culture Reflexed No [facility] Specimen (Source) Anatomical Collection Method Collection Time Re ceived Time Location / / Volume Laterality Urine specimen 03/13/2017 4:52 03/13/2017 5:34 obtained by clean PM EDT PM EDT catch procedure (specimen) Resulting Agency Comment Spec In Lab Ferdinand Michael Jr., MD URINE ORDERABLES Performing Organization Address City/State/ZIP [place] [address] documented in this encounter Visit Diagnoses Diagnosis Nephrolithiasis Calculus of kidney Nephrolithiasis Calculus of kidney documented in this encounter Care Teams Processing Associate Relationship Specialty Start Date End Date Suzie Mcintyre APRN PCP - General Family Medicine 02/28/17 06/26/17 (work) documented as of this encounter
--- OUTSIDE RECORDS SUMMARY | 2022-06-14 11:14 | XMS_ITS | Encounter Summary ---
:1965 Author Organization [facility] [place] [place] [address] Care Team Providers Name Role Phone EdJanet mendez Isa GONCALVES Primary Care Provider Reason for Visit Reason Comments Skin Lesion Consultation (Routine) - Specialty Diagnoses / Procedures Referred By Contact Refer red To Contact Dermatology Diagnoses SKIN LESION Doreen Larios PA [facility] Dermatology [address] [place] [address] [place] [address] Fax: Referral ID Status Reason Start Date Expiration Date Visits V isits Requested Authorized [id number] Consult, 05/16/2018 05/16/2019 6 6 Test & Treat Connection Center Encounter Details Date Type Department Care Team Description 06/23/2018 Office Visit Dermatology at [facility] Seborrheic keratosis; Matthew Estrada MD Lentigines [address] [place] [address] [facility] RD-DERMATOLOGY [place], [place] [address] Social History Tobacco Use Types [...] or pain. 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 Lot [id number] ??? omeprazole (PRILOSEC) 20 mg Capsule, Delayed [...] documentation. Romy Ansari MD Section of Dermatology [facility] documented in this encounter Plan of Treatment Upcoming Encounters Date Type Specialty Care Team Description 07/13/2022 Appointment Radiology Maile Hinojosa MD [facility] [address] [place], [place] [address] (Wo rk) 07/13/2022 Office Visit Endocrinology Maile Hinojosa MD [facility] [address] [place], [place] [address] (Wo rk) 07/25/2022 Office Visit Pulmonology Tong Norman MD [facility] Pulmonary Medici ne [place], [place] [address] (Wo rk) documented as of this encounter Visit Diagnoses Diagnosis Seborrheic keratosis Other seborrheic keratosis Lentigines Other dyschromia documented in this encounter Care Teams Aboriginal Home School Liaison Officer Relationship Specialty Start Date End Date Janet Davey APRN PCP - General Family Medicine 06/23/18 07/12/20 Nickolas GARCIA [address] [place] [address] documented as of this encounter
--- OUTSIDE RECORDS SUMMARY | 2022-06-14 11:14 | XMS_ITS | Encounter Summary ---
:1965 Author Organization [facility] [place] [address] Care Team Providers Name Role Phone Sarah Young APRN Primary Care Provider [phone] Encounter Details Date Type Department Care Team Description 10/11/2017 Telephone Psychiatry and Behavioral Jessica Miranda, PhD Health at [facility] NEUROPSYCHOLOGY DEPT. [facility] [place] [address] [place] [address] [phone] (Wo rk) Social History Tobacco Use Types [...] to discuss the results of her second [facility] neuropsychological evaluation. Briefly, the results revealed generally [...] [place]right for evaluation. Please contact us at [phone] if we can be of further assistance. Sherine Hurst Psy.D. Jessica Shelton, Ph.D., ABPP Postdoctoral Fellow in Neuropsychology Board Certified in Clinical Neuropsychology research compliance specialist Director, Neuropsychology Program documented in this encounter Plan of Treatment Upcoming Encounters Date Type Specialty Care Team Description 07/13/2022 Appointment Radiology Maile Hinojosa MD [facility] [address] [place], [place] [address] (Wo rk) 07/13/2022 Office Visit Endocrinology Maile Hinojosa MD [facility] [address] [place], [place] [address] (Wo rk) 07/25/2022 Office Visit Pulmonology Tong Norman MD [facility] Pulmonary Medici ne [place], [place] [address] (Wo rk) documented as of this encounter Visit Diagnoses Not on filedocumented in this encounter Care Teams Pharmacy Services Representative Relationship Specialty Start Date End Date Sarah Young APRN PCP - General Family Medicine 06/27/17 05/15/18 [address] [place] [address] documented as of this encounter
--- OUTSIDE RECORDS SUMMARY | 2022-06-14 11:14 | XMS_ITS | Encounter Summary ---
:1965 Author Organization [facility] [place] [address] Care Team Providers Name Role Phone Suzie Mcintyre APRN Primary Care Provider Encounter Details Date Type Department Care Team Description 05/01/2017 Orders Only Endocrinology at [facility] Cuate Pearl MD Osteoporosis, [facility] DR osteoporosis type, [place] [address] ENDOCRINOLOGY unspecified [phone] [place], [place] [address] 6 pathological fracture [phone] presence (Work) Social History Tobacco Use Types [...] MD [facility] ER [address] [place], [place] [address] (Wo rk) 07/13/2022 Office Visit Endocrinology Maile Hinojosa MD [facility] ER [address] [place], [place] [address] (Wo rk) 07/25/2022 Office Visit Pulmonology Tong Norman MD [facility] Pulmonary Medici [place], [place] Freddy (Wo rk) documented as of [...] measurements an d plots are available in E1,2,3 Listo under the imaging tab. Paper copies will be sent to providers without E- access. If you have received this report without th e data sheet and do not have access to [employer], please contact Radiology Transcrip tion at [phone] Saturday thru Saturday 8am-4pm. Narrative 06/27/2017 4:50 [...] icant change. The measured changes in comparison [facility] study are not large enough in [...] signif icant change. The measured changes in [facility] study are not large enough [...] sheet and do not have access to E1,2,3 Listo, please contact Radiology Transcrip tion at [phone] Saturday thru Saturday 8am-4pm. Cuate Hall MD IMG DEXA ORDERABLES documented in this encounter Visit Diagnoses Diagnosis Osteoporosis, unspecified osteoporosis t ype, unspecified pathological fracture presence Osteoporosis, unspecified osteoporosis t ype, unspecified pathological fracture presence documented in this encounter Care Teams Kapok Machine Operator Relationship Specialty Start Date End Date Suzie Mcintyre APRN PCP - General Family Medicine 02/28/17 06/26/17 documented as of this encounter
--- OUTSIDE RECORDS SUMMARY | 2022-06-14 11:14 | XMS_ITS | Encounter Summary ---
:1965 Author Organization [facility] [place] [address] Care Team Providers Name Role Phone Suzie Mcintyre APRN Primary Care Provider Reason for Referral Diagnostic Test (Routine) - Closed Specialty Diagnoses / Procedures Referred By Contact Refer red To Contact Radiology Diagnoses Nephrolithiasis Luis Michael Jr., MD [facility] Rad Ct Scan Procedures CT Urogram [facility] [place] [address] [place] [address] Referral ID Status Reason Start Date Expiration Date Visits V isits Requested Authorized [id number] Closed Specialty 03/14/2017 05/12/2017 1 1 Service Requested Reason for Visit Diagnostic Test (Routine) - Closed Specialty Diagnoses / Procedures Referred By Contact Refer red To Contact Radiology Diagnoses Nephrolithiasis Luis Michael Jr., MD [facility] Rad Ct Scan Procedures CT Urogram [facility] [place] [address] [place] [address] Referral ID Status Reason Start Date Expiration Date Visits V isits Requested Authorized [id number] Closed Specialty 03/14/2017 05/12/2017 1 1 Service Requested Encounter Details Date Type Department Care Team Description 03/15/[address] [facility] [place] [facility] Luis Michael Nephrolithiasis [facility] [place] [address] UROLOGY DEPT. [phone] [place], [place] [address] Social History Tobacco Use Types [...] directed NASONEX 50 mcg/actuation 0 05/18/2016 06/11/2018 [place], Non-Aerosol levonorgestrel (MIRENA) 1 each by Intrauterine route once. Lot [id number] 05/01/2016 05/01/2021 20 mcg/24 hr (5 years) [id number] IUD omeprazole (PRILOSEC) 20 PRN 0 03/22/2016 [...] contrast out of your body. Thank You, [facility] CT Scan Dept [facility] INTERVENTIONAL RADIOLOGY CT UROGRAM PROCEDURE NAME: JESSICA ALBRIGHT ADDRESS: [address] [place] [address] HOME PHONE: [phone] (home) [phone] (work) MOBILE NUMBER: Telephone Information: REFERRING PROVIDER: [...] 07/27/16 Ida Ron APRN NASONEX 50 mcg/actuation [place], Non-Aerosol 05/18/16 PROVIDER, HISTORICAL SUMAtriptan (IMITREX) 100 mg Tablet as needed for Migraine. 04/13/16 PROVIDER, HISTORICAL levonorgestrel (MIRENA) 20 mcg/24 hr (5 years) IUD 1 each by Intrauterine route once. Lot [id number] 05/01/16 05/01/21 PROVIDER, HISTORICAL omeprazole (PRILOSEC) 20 [...] Radiology Maile Hinojosa MD [facility] [address] [place], [place] [address] (Wo rk) 07/13/2022 Office Visit Endocrinology Maile Hinojosa MD [facility] [address] [place], [place] [address] (Wo rk) 07/25/2022 Office Visit Pulmonology Tong Norman MD [facility] Pulmonary Medici ne [place], [place] [address] (Wo rk) documented as of this encounter [...] Routine documented in this encounter Care Teams Structures Mechanic Relationship Specialty Start Date End Date Suzie Mcintyre APRN PCP - General Family Medicine 02/28/17 06/26/17 documented as of this encounter
--- OUTSIDE RECORDS SUMMARY | 2022-06-14 11:14 | XMS_ITS | Encounter Summary ---
:1965 Author Organization [facility] [place] [address] Care Team Providers Name Role Phone Suzie Mcintyre APRN Primary Care Provider Encounter Details Date Type Department Care Team Description 03/13/2017 Hospital Encounter Ultrasound at [facility] Ferdinand Pennington Nephrolithiasis [facility] [place] [address] UROLOGY DEPT. [phone] [place], [place] [address] Social History Tobacco Use Types [...] directed NASONEX 50 mcg/actuation 0 05/18/2016 06/11/2018 [place], Non-Aerosol levonorgestrel (MIRENA) 1 each by Intrauterine route once. Lot [id number] 0 05/01/2016 05/01/2021 20 mcg/24 hr (5 years) [id number] IUD omeprazole (PRILOSEC) 20 PRN 0 03/22/2016 [...] Hinojosa MD [facility] ENDOCRINOLOGY [place], [place] [address] (Wo rk) 07/13/2022 Office Visit Endocrinology Maile Hinojosa MD [facility] END[facility] [place], [place] [address] (Wo rk) 07/25/2022 Office Visit Pulmonology Tong Norman MD [facility] Pulmonary Mediceduardo [place] [address] (Wo rk) documented as of this encounter [...] 05:40 pm) PATIENT INFO: ID #: ? [id number] ?: ??[birth year] (51 yrs) Name: ? JESSICA Charles GTZ ?Visit Date: 03/13/2017 02:56 pm PERFORMED BY: Performed By: ? Keya Hedrick RDMS Attending: ?Luna GILL, Genie Dumont Resident: ? Chula GILL, Kip Rojas Referred By: ?FERDINAND Antoinette GORGE Location: ? [place] SERVICE(S) PROVIDED: ??URETRO - Retroperitoneal Complete - I [id number] ? [id number] INDICATIONS: ??pt with history of stones, eval [...] 05:40 pm ) PATIENT INFO: ID #: [id number] : [birth year] (51 y rs) Name: JESSICA GTZ Visit Date: 03/13 02:56 pm PERFORMED BY: Performed By: Chetna Hedrick RDMS Attending: Genie Carrasco MD Resident: Kip Quiros MD Referred By: FERDINAND PENNINGTON JR Location: [place] SERVICE(S) PROVIDED: URETRO - Retroperitoneal Complete - IMG [id number] INDICATIONS: pt with history of stones, eval [...] kidney documented in this encounter Care Teams Cane Splicer Relationship Specialty Start Date End Date Suzie Mcintyre APRN PCP - General Family Medicine 02/28/17 06/26/17 documented as of this encounter
--- OUTSIDE RECORDS SUMMARY | 2022-06-14 11:15 | XMS_ITS | Encounter Summary ---
:1965 Author Organization [facility] [place] [address] Care Team Providers Name Role Phone Monica Garcia MD Primary Care Provider Reason for Referral MRI/CAT Scan (Routine) - Closed Specialty Diagnoses / Procedures Referred By Contact Refer red To Contact Radiology Diagnoses Ultrasound for screening for growth restriction Ferdinand Michael Jr., MD [facility] Rad Ultrasound Procedures US Retroperitoneal Complete [facility] [place] [address] [place] [address] Referral ID Status Reason Start Date Expiration Date Visits Requ ested Visits Authorized [id number] Closed 05/15/2016 05/15/2017 1 1 Encounter Details Date Type Department Care Team Description 05/16/2015 Orders Only Urology at [facility] Ferdinand Michael Ultrasound for [facility] MD Jules screening [facility] [place] [address] [address] (Primary [phone] UROLOGY DEPT. Dx) [place] [address] Social History Tobacco Use Types Packs/Day Years [...] 07/13/2022 Appointment Radiology Maile Hinojosa MD [facility] ENDOCRINOLOGY [place], [place] [address] (Wo rk) 07/13/2022 Office Visit Endocrinology Maile Hinojosa MD [facility] ENDOCRINOLOGY [place], [place] [address] (Wo rk) 07/25/2022 Office Visit Pulmonology Tong Norman MD [facility] Pulmonary Medici ne [place], [place] [address] (Wo rk) documented as of [...] 03:41 pm) Patient Info ID #: ? [id number] ?: ??[birth year] (49 yrs) Name: ? JESSICA Charles TRESA ?Visit Date: 07/26/2015 03:12 pm Performed By Performed By: ? Ranjit Escobar RDMS Attending: ?Veronica GILL, Butch Maloney Referred By: ?FERDINAND MICHAEL MD Service(s) Provided ??URETRO - Retroperitoneal Complete - I [id number] ? [id number] Indications ??kidney stones Comparison Ultrasound: 02/23/14 ------- [...] 03:41 pm ) Patient Info ID #: [id number] : [birth year] (49 y rs) Name: JESSICA ALBRIGHT Visit Date: 07/26 03:12 pm Performed By Performed By: Maria Teresa Escobar RDMS Attending: Weston [place] MD Referred By: FERDINAND MICHAEL MD Service(s) Provided URETRO - Retroperitoneal Complete - [facility] 3517 [id number] Indications kidney stones Comparison Ultrasound: 02/23/14 ------- [...] ultrasonics documented in this encounter Care Teams Ship Steward Relationship Specialty Start Date End Date Monica Garcia MD PCP - General 01/06/13 02/27/17 [address] [place] [address] documented as of this encounter
--- OUTSIDE RECORDS SUMMARY | 2022-06-14 11:15 | XMS_ITS | Encounter Summary ---
:1965 Author Organization [facility] Address [address] [facility] [place] [place] [address] Care Team Providers Name Role Phone Monica Garcia MD Primary Care Provider Encounter Details Date Type Department Care Team Description 04/07/2015 Hospital Encounter XRay at [address] [place] [address] Social History Tobacco Use Types Packs/Day [...] Maile Hinojosa MD [facility] ENDOCRINOLOGY [place], [place] [address] (Wo rk) 07/13/2022 Office Visit Endocrinology Maile Hinojosa MD [facility] DR [address] [place], [place] [address] (Wo rk) 07/25/2022 Office Visit Pulmonology Tong Norman MD [facility] Pulmonary Medici ne [place], [place] [address] (Wo rk) documented as of [...] measurements a nd plots are available in [employer] under the imaging tab. Paper copies will be sent to providers without E-DH access. If you have received this report without th e data sheet and do not have access to [employer] please contact Radiology Transcrip tion at [phone] Saturday thru Saturday 8am-4pm. Narrative 04/11/2015 4:44 [...] This is available through an interactive web-based GCWa ce ([email or web address].[email or web address]/) and can be used to [...] measurements a nd plots are available in [employer] under the imaging tab. Paper copies will be sent to providers without E-DH access. If you have received this report without th e data sheet and do not have access to [employer], please contact Radiology Transcrip tion at [phone] Saturday thru Saturday 8am-4pm. Cuate Hall MD IMG DEXA ORDERABLES documented in this encounter Visit Diagnoses Diagnosis Osteoporosis Osteoporosis, unspecified documented in this encounter Care Teams Receiving Associate Store Relationship Specialty Start Date End Date Monica Garcia MD PCP - General 01/06/13 02/27/17 [address] [place] [address] documented as of this encounter
--- OUTSIDE RECORDS SUMMARY | 2022-06-14 11:15 | XMS_ITS | Encounter Summary ---
:1965 Author Organization [facility] [place] [address] Care Team Providers Name Role Phone Monica Garcia MD Primary Care Provider Reason for Visit Reason Onset Date Comments Questions 12/07/2014 Encounter Details Date Type Department Care Team Description 12/07/2014 Telephone Obstetrics and Gynecology at Connie Bolton, [place] [facility] [place] [address] Social History Tobacco Use Types Packs/Day [...] Hinojosa MD [facility] ENDOCRINOLOGY [place], [place] [address] (Wo rk) 07/13/2022 Office Visit Endocrinology Maile Hinojosa MD [facility] [address] [place], [place] [address] (Wo rk) 07/25/2022 Office Visit Pulmonology Tong Norman MD [facility] Pulmonary Medici ne [place], [place] [address] (Wo rk) documented as of this encounter Visit Diagnoses Not on filedocumented in this encounter Care Teams Diet Kitchen Cook Relationship Specialty Start Date End Date Monica Garcia MD PCP - General 01/06/13 02/27/17 [address] [place] [address] documented as of this encounter
--- OUTSIDE RECORDS SUMMARY | 2022-06-14 11:15 | XMS_ITS | Encounter Summary ---
:1965 Author Organization [facility] [place] [address] Care Team Providers Name Role Phone Monica Garcia MD Primary Care Provider Encounter Details Date Type Department Care Team Description 12/30/2015 Telephone Urology at [facility] Luis Michael Jr., MD [facility] [place] [address] UROLOGY DEPT. [phone] [place], [place] 0[address] (Wo rk) Social History Tobacco [...] Radiology Maile Hinojosa MD [facility] ENDOCRINOLOGY [place], [place] 0[address] (Wo rk) 07/13/2022 Office Visit Endocrinology Maile Hinojosa MD [facility] DR MARMOLEJO [place], [place] [address] (Wo rk) 07/25/2022 Office Visit Pulmonology Tong Norman MD [facility] Pulmonary Medici [place], [place] [address] (Wo rk) documented as of this encounter Visit Diagnoses Not on filedocumented in this encounter Care Teams Inspector Precision Assembly Relationship Specialty Start Date End Date Monica Garcia MD PCP - General 01/06/13 02/27/17 [address] [place] [address] documented as of this encounter
--- OUTSIDE RECORDS SUMMARY | 2022-06-14 11:15 | XMS_ITS | Encounter Summary ---
:1965 Author Organization [facility] [place] [address] Care Team Providers Name Role Phone Monica Garcia MD Primary Care Provider Encounter Details Date Type Department Care Team Description 08/22/2015 Telephone Obstetrics and Gynecology at [facility] Ida juan APRN [facility] Victor Manuel cifuentes OBSTETRICS & [place] [address] [place] [address] [phone] (Wo rk) Social History Tobacco Use Types [...] Description 07/13/2022 Appointment Radiology Maile Hinojosa MD [facility] ENDOCRINOLOGY [place], [place] [address] (Wo rk) 07/13/2022 Office Visit Endocrinology Maile Hinojosa MD [facility] DR MARMOLEJO [place], [place] [address] (Wo rk) 07/25/2022 Office Visit Pulmonology Tong Norman MD [facility] Pulmonary Medici [place], [place] [address] (Wo rk) documented as of this encounter Visit Diagnoses Not on filedocumented in this encounter Care Teams Industrial Gas Servicer Supervisor Relationship Specialty Start Date End Date Monica Garcia MD PCP - General 01/06/13 02/27/17 [address] [place] [address] documented as of this encounter
--- OUTSIDE RECORDS SUMMARY | 2022-06-14 11:15 | XMS_ITS | Encounter Summary ---
:1965 Author Organization [facility] [place] [address] Care Team Providers Name Role Phone Janet Davey APRN Primary Care Provider Reason for Visit Reason Comments Medication Refill Encounter Details Date Type Department Care Team Description 08/21/2015 [facility] Victor Manuel cifuentes OBSTETRICS & [place] [address] [place] [address] [phone] (Wo rk) Social History Tobacco Use Types [...] MD [facility] DR MARMOLEJO [place], [place] [address] (Wo rk) 07/13/2022 Office Visit Endocrinology Maile Hinojosa MD [facility] DR MARMOLEJO [place], [place] [address] (Wo rk) 07/25/2022 Office Visit Pulmonology Tong Norman MD [facility] Pulmonary Medici [place], [place] [address] (Wo rk) documented as of this encounter Visit Diagnoses Not on filedocumented in this encounter Care Teams Pct Relationship Specialty Start Date End Date Janet Davey APRN PCP - General Family Medicine 07/13/20 [address] [place] [address] documented as of this encounter
--- OUTSIDE RECORDS SUMMARY | 2022-06-14 11:15 | XMS_ITS | Encounter Summary ---
:1965 Author Organization [facility] [place] [address] Care Team Providers Name Role Phone Monica Garcia MD Primary Care Provider Reason for Visit Reason Onset Date Comments Medication Refill 04/23/2014 Encounter Details Date Type Department Care Team Description 04/23/2014 Refill Obstetrics and Gynecology [place] [address] Social History Tobacco Use Types Packs/Day [...] Climara patch for 1 month. Plan/Instructions: This content writer contacted Pt and she has scheduled her annual appt for May. documented in this encounter Plan of Treatment Upcoming Encounters Date Type Specialty Care Team Description 07/13/2022 Appointment Radiology Maile Hinojosa MD [facility] ENDOCRINOLOGY [place], [place] [address] (Wo rk) 07/13/2022 Office Visit Endocrinology Maile Hinojosa MD [facility] ENDOCRINOLOGY [place], [place] [address] (Wo rk) 07/25/2022 Office Visit Pulmonology Tong Norman MD [facility] Pulmonary Medici ne [place], [place] [address] (Wo rk) documented as of this encounter Visit Diagnoses Not on filedocumented in this encounter Care Teams Interpreter And Translator Relationship Specialty Start Date End Date Monica Garcia MD PCP - General 01/06/13 02/27/17 [address] [place] [address] documented as of this encounter
--- OUTSIDE RECORDS SUMMARY | 2022-06-14 11:15 | XMS_ITS | Encounter Summary ---
:1965 Author Organization [facility] [place] [address] Care Team Providers Name Role Phone Monica Garcia MD Primary Care Provider Encounter Details Date Type Department Care Team Description 02/23/2014 Hospital Encounter Ultrasound at [facility] [place] [address] Social History Tobacco Use Types Packs/Day [...] inhaler daily as needed (winter time). Evening [place] Oil 500 0 08/24/2010 01/24/2015 mg Cap [...] MD [facility] ENDOCRINOLOGY [place], [place] 5 (Wo rk) 07/13/2022 Office Visit Endocrinology Maile Hinojosa MD [facility] ENDOCRINOLOGY [place], [place] [address] (Wo rk) 07/25/2022 Office Visit Pulmonology Tong Norman MD [facility] Pulmonary Medici ne [place], [place] 3 (Wo rk) documented as of this encounter [...] Final 02/23/2014 05:20 pm) Patient Info ID: ?[id number] ?: [birth year] (48 yrs) Name: ?JESSICA GTZ ?Visit Date: 02/23/2014 04:19 pm Performed By Performed By: ?Mariann Leonard RDMS Associate: ? Jabari GILL, Bobby Alvarez Attending: ? Genie Carrasco MD Referred By: ? FERDINAND MICHAEL MD Service(s) Provided URETRO - Retroperitoneal Complete - 002 [id number] ? [id number] Indications Hx of kidney stones Comparison Renal/bladder [...] Final 02/23/2014 05:20 pm) Patient Info ID: [id number] : [birth year] (48 yrs ) Name: JESSICA GTZ Visit Date: 02/23 04:19 pm Performed By Performed By: Mariann Leonard RDMS Associate: Jabari GILL, Bobby Alvarez Attending: Luna GILL, Genie Dumont Referred By: FERDINAND MICHAEL MD Service(s) Provided URETRO - Retroperitoneal Complete - 002 [id number] Indications Hx of kidney stones Comparison Renal/bladder [...] kidney documented in this encounter Care Teams Slab Puller Relationship Specialty Start Date End Date Monica Garcia MD PCP - General 01/06/13 02/27/17 [address] [place] [address] documented as of this encounter
--- OUTSIDE RECORDS SUMMARY | 2022-06-14 11:15 | XMS_ITS | Encounter Summary ---
:1965 Author Organization [facility] [place] [address] Care Team Providers Name Role Phone Monica Garcia MD Primary Care Provider Reason for Visit Reason Comments Follow-up EMB Encounter Details Date Type Department Care Team Description 08/29/2015 Office Visit Obstetrics and Ida Ron, Abnormal uterine Gynecology at [facility] MERCHANDISE PROCESSOR bleeding (AUB) [facility] [address] [place], [place] OBSTETRICS & [address] GYNECOLOGY [phone] [place], [place] [address] Social History Tobacco Use Types [...] ALHAJIB HPI: I saw pt 06/28/15. ROS: DIGITAL SERVICE ENGINEER: She is currently using the Estradiol 0.1 [...] her last bleed 08/17/15, lasting 8 days, complaint supervisor. She has agreed to an EMB. [...] Hinojosa MD [facility] MEDICAL [facility] [address] [place]ALEEL [place], [place] [address] (Wo rk) 07/13/2022 Office Visit Endocrinology Maile Hinojosa MD [facility] DR [place]EL [place], [place] [address] (Wo rk) 07/25/2022 Office Visit Pulmonology Tong Norman MD [facility] er Pulmonary Medici [place] [address] (Wo rk) documented as of this [...] Component Value Ref Test Analysis Performed At [facility] Range Method Time Signature Surgical [id number] ? Location: [address] [place] [address] Pathology [facility] Report The signing pathologist has (i) [...] APRN PATHOLOGY/CYTOLOGY ORDERABLE S Performing Organization Address City/[facility]/ZIP Code Phon e Number [address] CERNER MILLENNIUM Specimen to [...] Organization Address City/State/ZIP [place] [address] CERNER Hoppit documented in this encounter Visit Diagnoses Diagnosis Abnormal uterine bleeding (AUB) documented in this encounter Care Teams Private Advisor Relationship Specialty Start Date End Date Monica Garcia MD PCP - General 01/06/13 02/27/[address] [place] [address] documented as of this encounter
--- OUTSIDE RECORDS SUMMARY | 2022-06-14 11:15 | XMS_ITS | Encounter Summary ---
:1965 Author Organization [facility] [place] [address] Care Team Providers Name Role Phone Monica Garcia MD Primary Care Provider Reason for Visit Reason Comments Osteoporosis Encounter Details Date Type Department Care Team Description 04/07/2015 Office Visit Endocrinology at [facility], [place] Osteoporosis [facility] Cuate Vidales MD [facility] [place] [address] [place] [address] Social History Tobacco Use Types Packs/Day [...] 46 y.o. year old female evaluated by MEDICAL PROFESSIONALS and found to have osteoporosis on Dexa [...] MD [facility] DR MARMOLEJO [place], [place] [address] (Wo rk) 07/13/2022 Office Visit Endocrinology Maile Hinojosa MD [facility] DR MARMOLEJO [place], [place] [address] (Wo rk) 07/25/2022 Office Visit Pulmonology Tong Norman MD [facility] Pulmonary Medici [place], [place] [address] (Wo rk) documented as of this encounter Visit Diagnoses Diagnosis Osteoporosis Osteoporosis, unspecified documented in this encounter Care Teams Foundry Metallurgist Relationship Specialty Start Date End Date Monica Garcia MD PCP - General 01/06/13 02/27/17 [address] [place] [address] documented as of this encounter
--- OUTSIDE RECORDS SUMMARY | 2022-06-14 11:15 | XMS_ITS | Encounter Summary ---
:1965 Author Organization [facility] [place] [address] Care Team Providers Name Role Phone Janet Davey APRN Primary Care Provider Reason for Visit Reason Comments Medication Refill Encounter Details Date Type Department Care Team Description 08/06/2015 Refill [facility] Victor Manuel cifuentes OBSTETRICS & [place] [address] [place] [address] [phone] (Wo rk) Social History Tobacco Use Types [...] MD [facility] DR MARMOLEJO [place], [place] [address] (Wo rk) 07/13/2022 Office Visit Endocrinology Maile Hinojosa MD [facility] DR MARMOLEJO [place], [place] [address] (Wo rk) 07/25/2022 Office Visit Pulmonology Tong Norman MD [facility] Medical [facility] Pulmonary Medici [place], [place] [address] (Wo rk) documented as of this encounter Visit Diagnoses Not on filedocumented in this encounter Care Teams Inhalation Therapy Teacher Relationship Specialty Start Date End Date Janet Davey APRN PCP - General Family Medicine 07/13/20 [address] [place] [address] documented as of this encounter
--- OUTSIDE RECORDS SUMMARY | 2022-06-14 11:15 | XMS_ITS | Encounter Summary ---
:1965 Author Organization [facility] [place] [address] Care Team Providers Name Role Phone Monica Garcia MD Primary Care Provider Reason for Visit Reason Onset Date Comments Medication Refill 07/07/2015 Encounter Details Date Type Department Care Team Description 07/07/2015 Telephone Obstetrics and Gynecology Sandra Bolton Medication Refill at [facility] [place] [place], [place] [address] Social History Tobacco Use Types Packs/Day [...] week. Prescription called in to the [facility] in [facility]. Patient called and notified of [...] Hinojosa MD [facility] DR MARMOLE[address] [place], [place] [address] (Wo rk) 07/13/2022 Office Visit Maile Matson MD [facility] DR MARMOLE[address] [place], [place] [address] (Wo rk) 07/25/2022 Office Visit Pulmonology Tong Norman MD [facility] Pulmonary Medici [place], [place] [address] (Wo rk) documented as of this encounter Visit Diagnoses Not on filedocumented in this encounter Care Teams Multimedia Programmer Relationship Specialty Start Date End Date Monica Garcia MD PCP - General 01/06/13 02/27/17 [address] [place] [address] documented as of this encounter
--- OUTSIDE RECORDS SUMMARY | 2022-06-14 11:15 | XMS_ITS | Encounter Summary ---
:1965 Author Organization [facility] [place] [address] Care Team Providers Name Role Phone Monica Garcia MD Primary Care Provider Encounter Details Date Type Department Care Team Description 07/14/2014 Orders Only Obstetrics and Gynecology Ida Ron APRN at [facility] Victor Manuel cifuentes OBSTETRICS & [place] [address] [place] [address] [phone] (Wo rk) Social History Tobacco Use Types [...] MD [facility] ENDOCRINOLOGY [place], [place] 0[address] (Wo rk) 07/13/2022 Office Visit Endocrinology Maile Hinojosa MD [facility] ENDOCRINOLOGY [place], [place] [address] (Wo rk) 07/25/2022 Office Visit Pulmonology Tong Norman MD [facility] Medical [facility] er Pulmonary Medici [place], [place] [address] (Wo rk) documented as of this encounter Visit Diagnoses Not on filedocumented in this encounter Care Teams Retail Service Technician Relationship Specialty Start Date End Date Monica Garcia MD PCP - General 01/06/13 02/27/17 [address] [place] [address] documented as of this encounter
--- OUTSIDE RECORDS SUMMARY | 2022-06-14 11:15 | XMS_ITS | Encounter Summary ---
:1965 Author Organization [facility] [place] [address] Care Team Providers Name Role Phone Monica Garcia MD Primary Care Provider Encounter Details Date Type Department Care Team Description 07/07/2015 Orders Only Obstetrics and Gynecology Ida Ron APRN at [facility] Victor Manuel cifuentes OBSTETRICS & [place] [address] [place] [address] [phone] (Wo rk) Social History Tobacco Use Types [...] Hinojosa MD [facility] ENDOCRINOLOGY [place], [place] 0[address] (Wo rk) 07/13/2022 Office Visit Endocrinology Maile Hinojosa MD [facility] ENDOCRINOLOGY [place], [place] [address] (Wo rk) 07/25/2022 Office Visit Pulmonology Tong Norman MD [facility] Medical [facility] er Pulmonary Medici [place], [place] [address] (Wo rk) documented as of this encounter Visit Diagnoses Not on filedocumented in this encounter Care Teams Lead Ramp Agent Relationship Specialty Start Date End Date Monica Garcia MD PCP - General 01/06/13 02/27/17 [address] [place] [address] documented as of this encounter
--- OUTSIDE RECORDS SUMMARY | 2022-06-14 11:15 | XMS_ITS | Encounter Summary ---
:1965 Author Organization [facility] Address [facility] [place] [address] Care Team Providers Name Role Phone Monica Garcia MD Primary Care Provider Reason for Visit Reason Comments Gynecologic Exam last pap 03/06/12 infection o r repair Encounter Details Date Type Department Care Team Description 04/24/2013 Office Visit Obstetrics and Ramses Birch MD Encounter for annual health examination (Primary Dx); Gynecology at [facility] Well woman exam with routine gynecological exam [facility] DR Camacho OBSTETRICS & [place], [place] GYNECOLOGY [address] [place] [address] [phone] Social History Tobacco Use Types Packs/Day Years [...] 9:37 AM EDT Annual Visit Stacy Albright [id number] 04/24/2013 MONICA GARCIA MD Reason for Visit: Stacy is a 47 y.o. perimenopausal female who presents for her annual JEWELRY REPAIRER exam. She also presents with the following [...] age Bone Density: Being managed by her Optoelectronics Engineer, not due at this time OB History [...] a normal pubic hair distribution. The Bartholin'sand Skyland's glands are unremarkable. The urethra is without [...] Hinojosa MD [facility] MEDICAL [facility] DR JALEEL [place] [address] (Wo rk) 07/13/2022 Office Visit Endocrinology Maile Hinojosa MD [facility] ENDOCRINOLOGY [place], [place] 0[address] (Wo rk) 07/25/2022 Office Visit Pulmonology Tong Norman MD [facility] Medical [facility] er Pulmonary Medici [place], [place] [address] (Wo rk) documented as of this encounter Visit Diagnoses Diagnosis Encounter for annual health examination - Primary Routine general medical examination at a health care facility Well woman exam with routine gynecologic al exam Routine gynecological examination documented in this encounter Care Teams Specification Manager Relationship Specialty Start Date End Date Monica Garcia MD PCP - General 01/06/13 02/27/17 [address] [place] [address] documented as of this encounter
--- OUTSIDE RECORDS SUMMARY | 2022-06-14 11:15 | XMS_ITS | Encounter Summary ---
:1965 Author Organization [place] [address] Care Team Providers Name Role Phone Monica Garcia MD Primary Care Provider Reason for Visit Reason Onset Date Comments Medication Refill 07/06/2015 Encounter Details Date Type Department Care Team Description 07/06/2015 Refill Obstetrics and Gynecology at [facility] Ida jaun APRN [facility] Victor Manuel cifuentes OBSTETRICS [place] [address] [place] [address] [phone] (Wo rk) Social History Tobacco Use Types [...] Radiology Maile Hinojosa MD [facility] ER DR JALEEL [place] [address] (Wo rk) 07/13/2022 Office Visit Endocrinology Maile Hinojosa MD [facility] ER ENDOCRINOLOGY [place], [place] [address] (Wo rk) 07/25/2022 Office Visit Pulmonology Tong Norman MD [facility] er Pulmonary Medici [place], [place] [address] (Wo rk) documented as of this encounter Visit Diagnoses Not on filedocumented in this encounter Care Teams Automotive Parts Counter Person Relationship Specialty Start Date End Date Monica Garcia MD PCP - General 01/06/13 02/27/17 [address] [place] [address] documented as of this encounter
--- OUTSIDE RECORDS SUMMARY | 2022-06-14 11:15 | XMS_ITS | Encounter Summary ---
:1965 Author Organization [facility] [place] [address] Care Team Providers Name Role Phone Monica Garcia MD Primary Care Provider Encounter Details Date Type Department Care Team Description 06/18/2014 Hospital Encounter Mammography at [facility], DR KENZIE Dos [facility] Monica Garcia MD [address] [place] [address] [place] [address] Social History Tobacco Use Types [...] inhaler daily as needed (winter time). Evening [place] Oil 500 0 08/24/2010 01/24/2015 mg Cap [...] Hinojosa MD [facility] ER ENDOCRINOLOGY [place], [place] [address] (Wo rk) 07/13/2022 Office Visit Endocrinology Maile Hinojosa MD [facility] MEDICAL [facility] ER ENDOCRINOLOGY [place], [place] 0[address] (Wo rk) 07/25/2022 Office Visit Pulmonology Tong Norman MD [facility] Pulmonary Medici [place], [place] Freddy (Wo rk) documented as of [...] documented in this encounter Care Teams Supervisor Cured Meats Relationship Specialty Start Date End Date Monica Garcia MD PCP - General 01/06/13 02/27/17 [address] [place] [address] documented as of this encounter
--- OUTSIDE RECORDS SUMMARY | 2022-06-14 11:15 | XMS_ITS | Encounter Summary ---
:1965 Author Organization [facility] [place] [address] Care Team Providers Name Role Phone Monica Garcia MD Primary Care Provider Encounter Details Date Type Department Care Team Description 12/29/2014 Orders Only Endocrinology at [facility] Cuate Pearl MD [facility] [place] [address] ENDOCRINOLOGY [phone] [place], [place] [address] (Wo rk) Social History Tobacco [...] MD [facility] ER DR [place]EL [place], [place] [address] (Wo rk) 07/13/2022 Office Visit Endocrinology Maile Hinojosa MD [facility] DR [place]ALEEL [place], [place] [address] (Wo rk) 07/25/2022 Office Visit Pulmonology Tong Norman MD [facility] Medical [facility] Pulmonary Medici [place], [place] [address] (Wo rk) documented as of this encounter Visit Diagnoses Diagnosis Osteoporosis Osteoporosis, unspecified documented in this encounter Care Teams Scale Model Maker Relationship Specialty Start Date End Date Monica Garcia MD PCP - General 01/06/13 02/27/17 [address] [place] [address] documented as of this encounter
--- OUTSIDE RECORDS SUMMARY | 2022-06-14 11:15 | XMS_ITS | Encounter Summary ---
:1965 Author Organization [facility] [place] [address] Care Team Providers Name Role Phone Monica Garcia MD Primary Care Provider Reason for Visit Reason Comments Nephrolithiasis Encounter Details Date Type Department Care Team Description 02/23/2014 Follow-Up Urology at [facility], DR ESPINO History of urinary [facility] Luis Michael Jr., MD [facility] [place] [address] stone (Primary Dx) [place] [address] Social History Tobacco Use Types Packs/Day [...] MD [facility] DR MARMOLEJO [place], [place] [address] (Wo rk) 07/13/2022 Office Visit Endocrinology Maile Hinojosa MD [facility] DR MARMOLEJO [place], [place] [address] (Wo rk) 07/25/2022 Office Visit Pulmonology Tong Norman MD [facility] Pulmonary Medici [place], [place] [address] (Wo rk) documented as of this encounter Visit Diagnoses Diagnosis History of urinary stone - Primary Personal history of urinary calculi documented in this encounter Care Teams Sample Taker Operator Relationship Specialty Start Date End Date Monica Garcia MD PCP - General 01/06/13 02/27/17 [address] [place] [address] documented as of this encounter
--- OUTSIDE RECORDS SUMMARY | 2022-06-14 11:15 | XMS_ITS | Encounter Summary ---
:1965 Author Organization [facility] [place] [address] Care Team Providers Name Role Phone Monica Garcia MD Primary Care Provider Reason for Visit Reason Comments Osteoporosis Encounter Details Date Type Department Care Team Description 03/31/2013 Office Visit [facility] Jennifer Pike, Osteoporosis (Primary [facility] [place]x) [place] [address] CENTER [phone] ENDOCRINOLOGY DEPT [place] [address] Social History Tobacco Use Types Packs/Day Years [...] follow up of 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She was evaluated by SOIL FERTILITY EXTENSION SPECIALIST and found to have osteoporosis on Dexa [...] with Dr Daniel Romero MD Endocrinology Fellow 8675 documented in this encounter Plan of Treatment Upcoming Encounters Date Type Specialty Care Team Description 07/13/2022 Appointment Radiology Maile Hinojosa MD [facility] ENDOCRINOLOGY [place], [place] [address] (Wo rk) 07/13/2022 Office Visit Endocrinology Maile Hinojosa MD [facility] ENDOCRINOLOGY [place], [place] [address] (Wo rk) 07/25/2022 Office Visit Pulmonology Tong Norman MD [facility] Pulmonary Medici ne [place], [place] [address] (Wo rk) documented as of this encounter [...] 44 30 - 100 CERNER Total ng/mL [facility] Comment: Deficient <10 ng/mL [...] Organization Address City/State/[place] [address] CERNER MILLENNIUM Calcium (03/31/2013 [...] Organization Address City/State/ZIP Code Phon e Number [address] CERNER MILLENNIUM documented in this encounter Visit Diagnoses Diagnosis Osteoporosis - Primary Osteoporosis, unspecified documented in this encounter Care Teams Fuel Management Handler Relationship Specialty Start Date End Date Monica Garcia MD PCP - General 01/06/13 02/27/17 [address] [place] [address] documented as of this encounter
--- OUTSIDE RECORDS SUMMARY | 2022-06-14 11:15 | XMS_ITS | Encounter Summary ---
:1965 Author Organization [facility] [place] [address] Care Team Providers Name Role Phone Monica Garcia MD Primary Care Provider Reason for Visit Reason Comments Follow-up Encounter Details Date Type Department Care Team Description 07/26/2015 Office Visit Urology at [facility] Luis Michael Jr., Nephrolithiasis [facility] [place] [address] [facility] [phone] UROLOGY DEPT. [place], [place] [address] (Wo rk) Social History Tobacco [...] MD [facility] DR MARMOLEJO [place], [place] [address] (Wo rk) 07/13/2022 Office Visit Endocrinology Maile Hinojosa MD [facility] DR [place], [place] [address] (Wo rk) 07/25/2022 Office Visit Pulmonology Tong Norman MD [facility] Pulmonary Medici ne [place], [place] [address] (Wo rk) documented as of this encounter Visit Diagnoses Diagnosis Nephrolithiasis Calculus of kidney documented in this encounter Care Teams Type Copy Examiner Relationship Specialty Start Date End Date Monica Garcia MD PCP - General 01/06/13 02/27/17 [address] [place] [address] documented as of this encounter
--- OUTSIDE RECORDS SUMMARY | 2022-06-14 11:15 | XMS_ITS | Encounter Summary ---
:1965 Author Organization [facility] [place] [address] Care Team Providers Name Role Phone Monica Garcia MD Primary Care Provider Reason for Visit Reason Comments Medication Refill Encounter Details Date Type Department Care Team Description 01/17/2013 Refill Obstetrics and Gynecology at Genoveva Larkin MD [facility] Victor Manuel cifuentes OBSTETRICS & [place] [address] [place] [address] [phone] (Wo rk) Social History Tobacco Use Types [...] MD [facility] ER ENDOCRINOLOGY [place], [place] [address] (Wo rk) 07/13/2022 Office Visit Endocrinology Maile Hinojosa MD [facility] ENDOCRINOLOGY [place], [place] [address] (Wo rk) 07/25/2022 Office Visit Pulmonology Tong Norman MD [facility] Pulmonary Medici [place], [place] [address] (Wo rk) documented as of this encounter Visit Diagnoses Not on filedocumented in this encounter Care Teams Horticulture Supervisor Relationship Specialty Start Date End Date Monica Garcia MD PCP - General 01/06/13 02/27/17 [address] [place] [address] documented as of this encounter
--- OUTSIDE RECORDS SUMMARY | 2022-06-14 11:15 | XMS_ITS | Encounter Summary ---
:1965 Author Organization [place] [place] [address] Care Team Providers Name Role Phone Monica Garcia MD Primary Care Provider Reason for Visit Reason Onset Date Comments Medication Refill 04/23/2014 Encounter Details Date Type Department Care Team Description 04/23/2014 Refill Obstetrics and Gynecology [place] [address] Social History Tobacco Use Types Packs/Day [...] Hinojosa MD [facility] ER ENDOCRINOLOGY [place], [place] [address] (Wo rk) 07/13/2022 Office Visit Endocrinology Maile Hinojosa MD [facility]ICAL [facility] ER ENDOCRINOLOGY [place], [place] [address] (Wo rk) 07/25/2022 Office Visit Pulmonology Tong Norman MD [facility] Medical [facility] er Pulmonary Medici ne [place], [place] [address] (Wo rk) documented as of this encounter Visit Diagnoses Not on filedocumented in this encounter Care Teams Pottery Kiln Builder Relationship Specialty Start Date End Date Monica Garcia MD PCP - General 01/06/13 02/27/17 [address] [place] [address] documented as of this encounter
--- OUTSIDE RECORDS SUMMARY | 2022-06-14 11:15 | XMS_ITS | Encounter Summary ---
:1965 Author Organization [place] [address] Care Team Providers Name Role Phone Monica Garcia MD Primary Care Provider Reason for Visit Reason Comments Follow-up Encounter Details Date Type Department Care Team Description 01/24/2015 Follow-Up Obstetrics and Ida Ron Menopausa l hot flushes Gynecology at [facility] [employer] [facility] [place] [address] OBSTETRICS & [phone] GYNECOLOGY [place], [place] 0[address] (Wo rk) Social History Tobacco [...] Maile Hinojosa MD [facility] ENDOCRINOLOGY [place], [place] 0[address] (Wo rk) 07/13/2022 Office Visit Endocrinology Maile Hinojosa MD [facility] ENDOCRINOLOGY [place], [place] [address] (Wo rk) 07/25/2022 Office Visit Pulmonology Tong Norman MD [facility] Pulmonary Medici ne [place], [place] 0[address] (Wo rk) documented as of this encounter [...] Masters MD HEMATOLOGY ORDERABLES Performing Organization Address City/[facility] [place] [address] CERNER MILLENNIUM (ABNORMAL) Hemogram [...] Masters MD HEMATOLOGY ORDERABLES Performing Organization Address City/[facility]/[place] [address] [facility] [address] CERNER ARAMISENNIUM TSH (01/24/2015 [...] Organization Address City/State/[place] [address] [facility] [address] [facility] documented in this encounter Visit Diagnoses Diagnosis Menopausal hot flushes Symptomatic menopausal or female climact [place] documented in this encounter Care Teams Dermatology Technician Relationship Specialty Start Date End Date Monica Garcia MD PCP - General 01/06/13 02/27/17 [address] [place] [address] documented as of this encounter
--- OUTSIDE RECORDS SUMMARY | 2022-06-14 11:15 | XMS_ITS | Encounter Summary ---
:1965 Author Organization [facility] [place] [address] Care Team Providers Name Role Phone Janet Davey Isa GONCALVES Primary Care Provider Reason for Visit Reason Comments Medication Refill Encounter Details Date Type Department Care Team Description 04/11/2014 Refill Obstetrics and Gynecology at Ramses Boyce MD [facility] Victor Manuel cifuentes OBSTETRICS & [place] [address] [place] [address] [phone] Social History Tobacco Use Types Packs/Day Years [...] Maile Hinojosa MD [facility] ER ENDOCRINOLOGY [place], [place] 0[address] (Wo rk) 07/13/2022 Office Visit Endocrinology Maile Hinojosa MD [facility] ER ENDOCRINOLOGY [place], [place] [address] (Wo rk) 07/25/2022 Office Visit Pulmonology Tong Norman MD [facility] Pulmonary Medici ne [place], [place] [address] (Wo rk) documented as of this encounter Visit Diagnoses Not on filedocumented in this encounter Care Teams Guest Services Coordinator Relationship Specialty Start Date End Date Janet Davey, HEALTH AND WELLNESS SALES CONSULTANT PCP - General Family Medicine 07/13/20 [address] [place] [address] documented as of this encounter
--- OUTSIDE RECORDS SUMMARY | 2022-06-14 11:15 | XMS_ITS | Encounter Summary ---
:1965 Author Organization [facility] [place] [address] Care Team Providers Name Role Phone Monica Garcia MD Primary Care Provider Encounter Details Date Type Department Care Team Description 01/09/2013 Orders Only Endocrinology at [facility] C Jennifer Romero, Osteoporosis (Primary [facility] Dx) [place] [address] CENTER [phone] ENDOCRINOLOGY DEPT [place], [place] [address] Social History Tobacco Use Types [...] MD [facility] ER ENDOCRINOLOGY [place], [place] 0[address] (Wo rk) 07/13/2022 Office Visit Endocrinology Maile Hinojosa MD [facility] ENDOCRINOLOGY [place], [place] [address] (Wo rk) 07/25/2022 Office Visit Pulmonology Tong Norman MD [facility] Pulmonary Medici ne [place], [place] 0[address] (Wo rk) documented as of this encounter Visit Diagnoses Diagnosis Osteoporosis - Primary Osteoporosis, unspecified documented in this encounter Care Teams Dirt Bike Mechanic Relationship Specialty Start Date End Date Monica Garcia MD PCP - General 01/06/13 02/27/17 [address] [place] [address] documented as of this encounter
--- OUTSIDE RECORDS SUMMARY | 2022-06-14 11:15 | XMS_ITS | Encounter Summary ---
:1965 Author Organization [facility] Address [facility] [place] [address] Care Team Providers Name Role Phone Monica Garcia MD Primary Care Provider Encounter Details Date Type Department Care Team Description 07/15/2014 Orders Only Obstetrics and Gynecology Ida Ron, RECOVERY ENGINEER Perimenopause at [facility] Victor Manuel cifuentes OBSTETR[place] & [place] [address] GYNECOLOGY [phone] [place], [place] [address] (Wo rk) Social History Tobacco [...] Radiology Maile Hinojosa MD [facility] ER ENDOCRINOLOGY [place], [place] [address] (Wo rk) 07/13/2022 Office Visit Endocrinology Maile Hinojosa MD [facility] ER ENDOCRINOLOGY [place], [place] [address] (Wo rk) 07/25/2022 Office Visit Pulmonology Tong Norman MD [facility] Pulmonary Medici [place] [address] (Wo rk) documented as of this encounter Visit Diagnoses Diagnosis Perimenopause Symptomatic menopausal or female climact [place] documented in this encounter Care Teams Elementary Art Teacher Relationship Specialty Start Date End Date Monica Garcia MD PCP - General 01/06/13 02/27/17 [address] [place] [address] documented as of this encounter
--- OUTSIDE RECORDS SUMMARY | 2022-06-14 11:15 | XMS_ITS | Encounter Summary ---
:1965 Author Organization [facility] [place] [address] Care Team Providers Name Role Phone Monica Garcia MD Primary Care Provider Encounter Details Date Type Department Care Team Description 01/09/2013 Orders Only Endocrinology at [facility] C Jennifer Romero, Osteoporosis (Primary [facility] [place]x) [place] [address] CENTER [phone] ENDOCRINOLOGY DEPT [place], [place] 0[address] Social History Tobacco Use [...] Maile Hinojosa MD [facility] ER ENDOCRINOLOGY [place], [place] 0[address] (Wo rk) 07/13/2022 Office Visit Endocrinology Maile Hinojosa MD [facility] ENDOCRINOLOGY [place], [place] 0[address] (Wo rk) 07/25/2022 Office Visit Pulmonology Tong Norman MD [facility] Pulmonary Medici ne [place], [place] 0[address] (Wo rk) documented as of this encounter Visit Diagnoses Diagnosis Osteoporosis - Primary Osteoporosis, unspecified documented in this encounter Care Teams Hotel Controller Relationship Specialty Start Date End Date Monica Garcia MD PCP - General 01/06/13 02/27/17 [address] [place] [address] documented as of this encounter
--- OUTSIDE RECORDS SUMMARY | 2022-06-14 11:15 | XMS_ITS | Encounter Summary ---
:1965 Author Organization [facility] [place] [address] Care Team Providers Name Role Phone Monica Garcia MD Primary Care Provider Encounter Details Date Type Department Care Team Description 06/18/2014 Hospital Encounter Mammography at [facility] [place] [address] Social History Tobacco Use Types Packs/Day [...] inhaler daily as needed (winter time). Evening [place] [employer] 500 0 08/24/2010 01/24/2015 mg Cap [...] Radiology Maile Hinojosa MD [facility] ENDOCRINOLOGY [place], [place] [address] (Wo rk) 07/13/2022 Office Visit Endocrinology Maile Hinojosa MD [facility] ENDOCRINOLOGY [place], [place] [address] (Wo rk) 07/25/2022 Office Visit Pulmonology Tong Norman MD [facility] Dr Cristiane Lux [place], [place] [address] (Wo rk) documented as of [...] on filedocumented in this encounter Care Teams Commercial Mortgage Broker Relationship Specialty Start Date End Date Monica Garcia MD PCP - General 01/06/13 02/27/17 [address] [place] [address] documented as of this encounter
--- OUTSIDE RECORDS SUMMARY | 2022-06-14 11:15 | XMS_ITS | Encounter Summary ---
:1965 Author Organization [facility] [place] [address] Care Team Providers Name Role Phone Monica Garcia MD Primary Care Provider Encounter Details Date Type Department Care Team Description 06/28/2015 Hospital Encounter Mammography at [facility] NicolásKimberli sheriffan Other screening [facility] MD Ken mammogram [facility] [address] OBSTETRICS & [phone] [place] [address] Social History Tobacco Use Types Packs/Day Years [...] Radiology Maile Hinojosa MD [facility] ER ENDOCRINOLOGY [place], [place] [address] (Wo rk) 07/13/2022 Office Visit Endocrinology Maile Hinojosa MD [facility] ENDOCRINOLOGY [place], [place] [address] (Wo rk) 07/25/2022 Office Visit Pulmonology Tong Norman MD [facility] Medical [facility] er Pulmonary Medici ne [place], [place] [address] (Wo rk) documented as of this encounter [...] mammogram documented in this encounter Care Teams Client Success Specialist Relationship Specialty Start Date End Date Monica Garcia MD PCP - General 01/06/13 02/27/17 [address] [place] [address] documented as of this encounter
--- OUTSIDE RECORDS SUMMARY | 2022-06-14 11:15 | XMS_ITS | Encounter Summary ---
:1965 Author Organization [facility] [place] [address] Care Team Providers Name Role Phone Monica Garcia MD Primary Care Provider Encounter Details Date Type Department Care Team Description 12/07/2014 Orders Only Obstetrics and Gynecology Sarah Jose CNM at [facility] Victor Manuel cifuentes OBSTETRICS & [place] [address] [place] [address] [phone] (Wo rk) Social History Tobacco Use Types [...] Hinojosa MD [facility] ER ENDOCRINOLOGY [place], [place] [address] (Wo rk) 07/13/2022 Office Visit Endocrinology Maile Hinojosa MD [facility] ER ENDOCRINOLOGY [place], [place] 5 (Wo rk) 07/25/2022 Office Visit Pulmonology Tong Norman MD [facility] Pulmonary Medici [place], [place] 037 (Wo rk) documented as of this encounter Visit Diagnoses Not on filedocumented in this encounter Care Teams Auto Parts Counter Person Relationship Specialty Start Date End Date Monica Garcia MD PCP - General 01/06/13 02/27/17 [address] [place] [address] documented as of this encounter
--- OUTSIDE RECORDS SUMMARY | 2022-06-14 11:15 | XMS_ITS | Encounter Summary ---
:1965 Author Organization [facility] [place] [address] Care Team Providers Name Role Phone Monica Garcia MD Primary Care Provider Reason for Referral MRI/CAT Scan (Routine) - Closed Specialty Diagnoses / Procedures Referred By Contact Refer red To Contact Radiology Diagnoses Ultrasound for screening for growth restriction Ferdinand Michael Jr., MD [facility] Rad Ultrasound Procedures US Retroperitoneal Complete [facility] UROLOGY DEPT. [address] [address] Referral ID Status Reason Start Date Expiration Date Visits Requ ested Visits Authorized [id number] Closed 05/15/2016 05/15/2017 1 1 Reason for Visit MRI/CAT Scan (Routine) - Closed Specialty Diagnoses / Procedures Referred By Contact Refer red To Contact Radiology Diagnoses Ultrasound for screening for growth restriction Ferdinand Michael Jr., MD [facility] Rad Ultrasound Procedures US Retroperitoneal Complete [facility] [place] [address] [place] [address] Referral ID Status Reason Start Date Expiration Date Visits Requ ested Visits Authorized [id number] Closed 05/15/2016 05/15/2017 1 1 Encounter Details Date Type Department Care Team Description 07/26/2015 Hospital Encounter Ultrasound at [facility] Ferdinand Michael [facility] for [facility] MD Jules screening Drive [facility] for growth [facility] [place] [address] UROLOGY DEPT. [phone] [place] [address] Social History Tobacco Use Types Packs/Day Years [...] Maile Hinojosa MD [facility] ENDOCRINOLOGY [place], [place] 0[address] (Wo rk) 07/13/2022 Office Visit Endocrinology Maile Hinojosa MD [facility] ENDOCRINOLOGY [place], [place] [address] (Wo rk) 07/25/2022 Office Visit Pulmonology Tong Norman MD [facility] Pulmonary Medici [place], [place] [address] (Wo rk) documented as of [...] 03:41 pm) Patient Info ID #: ? [id number] ?: ??[birth year] (49 yrs) Name: ? JESSICA ALBRIGHT ?Visit Date: 07/26/2015 03:12 pm Performed By Performed By: ? Ranjit Escobar RDMS Attending: ?Veronica GILL, Butch Moss. Referred By: ?FERDINAND MICHAEL MD Service(s) Provided ??URETRO - Retroperitoneal Complete - I [id number] ? [id number] Indications ??kidney stones Comparison Ultrasound: 02/23/14 ------- [...] 03:41 pm ) Patient Info ID #: [id number] : [birth year] (49 y rs) Name: JESSICA ALBRIGHT Visit Date: 07/26 03:12 pm Performed By Performed By: Maria Teresa Escobar RDMS Attending: Weston Martin MD Referred By: FERDINADN MICHAEL MD Service(s) Provided URETRO - Retroperitoneal Complete - [facility] [id number] Indications kidney stones Comparison Ultrasound: 02/23/14 ------- [...] ultrasonics documented in this encounter Care Teams Drier Helper Relationship Specialty Start Date End Date Monica Garcia MD PCP - General 01/06/13 02/27/17 [address] [place] [address] documented as of this encounter
--- OUTSIDE RECORDS SUMMARY | 2022-06-14 11:15 | XMS_ITS | Encounter Summary ---
:1965 Author Organization [facility] [place] [address] Care Team Providers Name Role Phone Monica Garcia MD Primary Care Provider Encounter Details Date Type Department Care Team Description 12/01/2013 Orders Only Urology at [facility] Ferdinand Michael Kidney stones (Primary [facility] MD Jules Dx) [place] [address] UROLOGY DEPT. [place], [place] [address] Social History Tobacco Use Types [...] Radiology Maile Hinojosa MD [facility] ER ENDOCRINOLOGY [place], [place] [address] ( rk) 07/13/2022 Office Visit Endocrinology Maile Hinojosa MD [facility] ENDOCRINOLOGY [place], [place] [address] ([facility]) 07/25/2022 Office Visit Pulmonology Tong Norman MD [facility] Pulmonary Medici ne [place], [place] [address] ([facility]) documented as of this encounter Results US retroperitoneal complete (02/23/2014 4:21 PM EDT) Anatomical Region Laterality Modality Abdomen Ultrasound Specimen (Source) Anatomical Collection Method Collection Time Re ceived Time Location / / Volume Laterality 02/23/2014 4:21 PM EDT Narrative 02/23/2014 5:21 PM EDT ? Renal ?(Signed Final 02/23/2014 05:20 pm) Patient Info ID: ?[id number] ?: ??[birth year] (48 yrs) Name: ?JESSICA GTZ ?Visit Date: 02/23/2014 04:19 pm Performed By Performed By: ?Mariann Leonard RDMS Associate: ? Jabari GILL, Bobby Alvarez Attending: ? Genie Carrasco MD Referred By: ? FERDINAND MICHAEL MD Service(s) Provided URETRO - Retroperitoneal Complete - [id number] ? [id number] Indications Hx of kidney stones Comparison Renal/bladder [...] Final 02/23/2014 05:20 pm) Patient Info ID: [id number] : [birth year] (48 yrs ) Name: JESSICA GTZ Visit Date: 02/23 04:19 pm Performed By Performed By: Mariann Leonard RDMS Associate: Bobby Barboza MD Attending: Genie Carrasco MD Referred By: FERDINAND MICHAEL MD Service(s) Provided URETRO - Retroperitoneal Complete - [phone] [id number] Indications Hx of kidney stones Comparison Renal/bladder [...] kidney documented in this encounter Care Teams Applications Support Analyst Relationship Specialty Start Date End Date Monica Garcia MD PCP - General 01/06/13 02/27/17 [address] [place] [address] documented as of this encounter
--- OUTSIDE RECORDS SUMMARY | 2022-06-14 11:15 | XMS_ITS | Encounter Summary ---
:1965 Author Organization [facility] [place] [address] Care Team Providers Name Role Phone Janet Davey SACHA Primary Care Provider Reason for Visit Reason Comments Medication Refill Encounter Details Date Type Department Care Team Description 01/02/2014 Refill Obstetrics and Gynecology at Jaqueline bravo, Genoveva Bobo MD [facility] [place] [address] [place] [address] [phone] Social History Tobacco Use Types Packs/Day Years [...] [facility] ER DR MARMOLEJO [place], [place] [address] (Wo rk) 07/13/2022 Office Visit Endocrinology Maile Hinojosa MD [facility] ENDOCRINOLOGY [place], [place] [address] (Wo rk) 07/25/2022 Office Visit Pulmonology Tong Norman MD [facility] Pulmonary Medici [place], [place] [address] (Wo rk) documented as of this encounter Visit Diagnoses Not on filedocumented in this encounter Care Teams Joint Supervisor Relationship Specialty Start Date End Date Janet Davey, UMBRELLA REPAIRER PCP - General Family Medicine 07/13/20 [address] [place] [address] documented as of this encounter
--- OUTSIDE RECORDS SUMMARY | 2022-06-14 11:15 | XMS_ITS | Encounter Summary ---
:1965 Author Organization [facility] [place] [address] Care Team Providers Name Role Phone Monica Garcia MD Primary Care Provider Encounter Details Date Type Department Care Team Description 12/13/2014 Orders Only Obstetrics and Sarah Jose, Raissa contreras (Primary Gynecology at [facility] CNM Dx) [facility] [place] [address] OBSTETRICS & [phone] GYNECOLOGY [place], [place] [address] Social History Tobacco Use [...] Hinojosa MD [facility] [address] JALEEL [place], [place] [address] (Wo rk) 07/13/2022 Office Visit Endocrinology Maile Hinojosa MD [facility] [address] [place], [place] [address] (Wo rk) 07/25/2022 Office Visit Pulmonology Tong Norman MD [facility] Medical [facility] Pulmonary Medici [employer], [place] [address] (Wo rk) documented as of this encounter Visit Diagnoses Diagnosis Hot flashes - Primary Symptomatic menopausal or female climact [place] documented in this encounter Care Teams Template Checker Relationship Specialty Start Date End Date Monica Garcia MD PCP - General 01/06/13 02/27/17 [address] [place] [address] documented as of this encounter
--- OUTSIDE RECORDS SUMMARY | 2022-06-14 11:15 | XMS_ITS | Encounter Summary ---
:1965 [place] [address] Care Team Providers Name Role Phone Monica Garcia MD Primary Care Provider Reason for Visit Reason Comments Annual Exam Encounter Details Date Type Department Care Team Description 06/09/2014 Office Visit Obstetrics and CLINIC, DR KENZIE fleming s, Gynecology at [facility] Ida Ron, [facility] OBSTETRICS & [place] [address] perimenopausal ([facility] Dx) [place] [id number] Social History Tobacco Use Types Packs/Day Years [...] in this encounter Progress Notes Ida Ron, MECHANICAL PROJECT ENGINEER - 06/10/2014 8:23 AM EDT Reason for visit: Annual content director exam ROS: GI: Denies any leakage of stool. : Denies any leakage of urine or urinary frequency, urgency, or burning. 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 Created by interface AlejandraSJosephWGuido([employer] Procedure Date: 01/16/2008 ??? Lithotripsy ??? Knee surgery 03/01/14 Right knee; patella surgery DRY HOUSE WORKER History: Pt is a 48 year old [...] a new home in their town of [place], [place]. 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 Eats relatively healthy with fruits, vegetables, yogurt, [...] skin once a week. No refills without Applied Researcher appt. 4 patch 0 ??? amitriptyline (ELAVIL) [...] mg by mouth every morning. ??? Evening Bristol Oil 500 mg Cap ??? albuterol (ACCUNEB) [...] confirms, good tone, no hemorrhoids A: Unremarkable content director exam Hot flushes, worsening P: Since climara Pro does not come in a higher dose, will switch to Combipatch 0.05/0.14 semi weekly. If she is still experiencing vasomotor symptoms, will switch to higher dose. She is aware it is twice weekly. JulySulema dockeyr Natalie - 06/09/2014 4:34 PM EDT S: Annual DRY HOUSE WORKER Exam. ROS: GI: Denies any leakage of stool. : Denies any leakage of urine or urinary frequency, urgency, or burning. DRY HOUSE WORKER: Reported yeast infection 3 weeks ago with [...] Surgical History Procedure Date ??? Created by [employer] EJosephSJosephWJosephLJoseph(MSUROL) Procedure Date: 01/16/2008 ??? Lithotripsy ??? [...] a new home in their town of [place], [place]. 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 Eats relatively healthy with fruits, vegetables, yogurt, [...] skin once a week. No refills without Applied Researcher appt. 4 patch 0 ??? amitriptyline (ELAVIL) [...] mg by mouth every morning. ??? Evening Bristol Oil 500 mg Cap ??? albuterol (ACCUNEB) [...] (138 lb) BMI 20.99 kg/m2 LMP 06/06/2014 DRY HOUSE WORKER History: Pt is a 48 year old [...] masses palpated. Climara Pro patch to LLQ. DRY HOUSE WORKER Exam: External Genitalia: [place], no lesions visualized. Urethral Meatus: No masses or lesions. Vagina: [place], no lesions noted however view of canal somewhat obstructed due to current bleeding from menses. Cervix: Smooth, pink, no CMT noted. Cervix visualized; no lesions noted. Uterus: Anteverted/Anteflexed, no masses palpated. Adnexa: Without masses. A: Pt is a 48 year old perimenopausal woman who does not routinely see her PCP and is here for her Annual Applied Researcher Exam; exam findings benign, however patient would [...] - Pt to start decreasing dosing of Bristol oil at night. - Climara patch d/c, [...] noted above. Patient seen in conjunction with [facility] HOT BREAD BAKER Student, Sulema Mcdowell. documented in this encounter Plan of Treatment Upcoming Encounters Date Type Specialty Care Team Description 07/13/2022 Appointment Radiology Maile Hinojosa MD [facility] MEDICAL [facility] ER DR [place], [place] [address] (Rahul ascencio) 07/13/2022 Office Visit Endocrinology Maile Hinojosa MD [facility] MEDICAL [facility] DR [place]EL [place], [place] [address] (Rahul ascencio) 07/25/2022 Office Visit Pulmonology Tong Norman MD [facility] Medical [facility] Pulmonary Medici [place], [place] [address] (Wo rk) documented as of this encounter Visit Diagnoses Diagnosis Hot flushes, perimenopausal - Primary Symptomatic menopausal or female climact [place] documented in this encounter Care Teams Fashion Illustrator Relationship Specialty Start Date End Date Monica Garcia MD PCP - General 01/06/13 02/27/17 [address] [place] [address] documented as of this encounter
--- OUTSIDE RECORDS SUMMARY | 2022-06-14 11:15 | XMS_ITS | Encounter Summary ---
:1965 Author Organization [facility] [address] Care Team Providers Name Role Phone Monica Garcia MD Primary Care Provider Encounter Details Date Type Department Care Team Description 01/06/2014 Telephone Obstetrics and Gynecology at Ramses Boyce MD [facility] Victor Manuel cifuentes OBSTETRICS & [place] [address] [place] [address] [phone] Social History Tobacco Use Types Packs/Day Years [...] MD [facility] DR MARMOLEJO [place], [place] [address] (Wo rk) 07/13/2022 Office Visit Endocrinology Maile Hinojosa MD [facility] DR MARMOLEJO [place], [place] [address] (Wo rk) 07/25/2022 Office Visit Pulmonology Tong Norman MD [facility] Pulmonary Medici [place], [place] [address] (Wo rk) documented as of this encounter Visit Diagnoses Not on filedocumented in this encounter Care Teams Lifestyle Block Farmer Relationship Specialty Start Date End Date Monica Garcia MD PCP - General 01/06/13 02/27/17 [address] [place] [address] documented as of this encounter
--- OUTSIDE RECORDS SUMMARY | 2022-06-14 11:15 | XMS_ITS | Encounter Summary ---
:1965 Author Organization [facility] [place] [address] Care Team Providers Name Role Phone Monica Garcia MD Primary Care Provider Encounter Details Date Type Department Care Team Description 06/09/2014 Hospital Encounter Mammography at [facility] [place] [address] Social History Tobacco Use Types Packs/Day [...] inhaler daily as needed (winter time). Evening [place] Oil 500 0 08/24/2010 01/24/2015 mg Cap [...] Maile Hinojosa MD [facility] ENDOCRINOLOGY [place], [place] [address] (Wo rk) 07/13/2022 Office Visit Endocrinology Maile Hinojosa MD [facility] ENDOCRINOLOGY [place], [place] [address] (Wo rk) 07/25/2022 Office Visit Pulmonology Tong Norman MD [facility] Dr Cristiane Lux [place], [place] [address] (Wo rk) documented as of [...] may return to routine screening. ?? and [id number] are assoc iated with this study. ?? [...] Patient may return to routine screening. and [id number] are assoc iated with this study. Ida Ron APRN IMG MAMMO ORDERABLES documented in this encounter Visit Diagnoses Not on filedocumented in this encounter Care Teams Assembler Ping Pong Table Relationship Specialty Start Date End Date Monica Garcia MD PCP - General 01/06/13 02/27/17 [address] [place] [address] documented as of this encounter
--- OUTSIDE RECORDS SUMMARY | 2022-06-14 11:15 | XMS_ITS | Encounter Summary ---
:1965 Author Organization [facility] [place] [address] Care Team Providers Name Role Phone Monica Garcia MD Primary Care Provider Encounter Details Date Type Department Care Team Description 02/16/2013 Hospital Encounter Laboratory CLINIC, DR CONV Osteoporosis [facility] Jeninfer Romero MD [facility] [place] [address] [place] [address] Social History Tobacco Use Types Packs/Day [...] HCL (SERTRALINE 0 0 03/31/2013 ORAL) Evening [place] Oil 500 0 08/24/2010 01/24/2015 mg Cap [...] Hinojosa MD [facility] ENDOCRINOLOGY [place], [place] [address] (Wo rk) 07/13/2022 Office Visit Endocrinology Maile Hinojosa MD [facility] ENDOCRINOLOGY [place], [place] [address] (Wo rk) 07/25/2022 Office Visit Pulmonology Tong Norman MD [facility] Pulmonary Medici [place], [place] [address] (Wo rk) documented as of this encounter [...] This is available through an interactive web-based [employer] (http://www.shef.ac.uk/FRAX/) and can be used to [...] measurements a nd plots are available in E-getFound.ie under the imaging tab. Paper copies will be sent to providers without E-DH access. If you have received this report without the data sheet and do not have access to EYour Last Chance, please contact Radiology [facility] at [phone] Saturday thru Saturday 8am-4pm. Procedure Note Simin [...] measurements a nd plots are available in E-getFound.ie under the imaging tab. Paper copies will be sent to providers without E-getFound.ie access. If you have received this report without the data sheet and do not have access to E-getFound.ie, please contact Radiology [facility] at [phone] Saturday thru Saturday 8am-4pm. Cuate Hall MD IMG DEXA ORDERABLES documented in this encounter Visit Diagnoses Diagnosis Osteoporosis Osteoporosis, unspecified documented in this encounter Care Teams Inventory Representative Relationship Specialty Start Date End Date Monica Garcia MD PCP - General 01/06/13 02/27/17 [address] [place] [address] documented as of this encounter
--- OUTSIDE RECORDS SUMMARY | 2022-06-14 11:15 | XMS_ITS | Encounter Summary ---
:1965 Author Organization [facility] [place] [address] Care Team Providers Name Role Phone Monica Garcia MD Primary Care Provider Reason for Visit Reason Comments Annual Exam Encounter Details Date Type Department Care Team Description 06/28/2015 Office Visit Obstetrics and Ida Ron, Encounter for routine gynecological examination; Gynecology at [facility] ASSISTANT INFANT TEACHER Perimenopause [facility] [address] [place] OBSTETRICS & [address] GYNECOLOGY [phone] [place], [place] [address] Social History Tobacco Use Types [...] in this encounter Progress Notes Ida Ron, ASSISTANT INFANT TEACHER - 06/28/2015 4:34 PM EST Reason for visit: Annual horticulture teacher exam ROS: AEROSPACE PROJECT MANAGER: She is currently using the Estradiol 0.1 [...] Laterality Date ??? Created by leigh ann Morgan([email or web address]) Procedure Date: 01/16/2008 ??? Lithotripsy ??? Knee surgery 03/01/14 Right knee; patella surgery AEROSPACE PROJECT MANAGER History: Pt is a 49 year old [...] a new home in their town of [place], [place]. 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 Eats relatively healthy with fruits, vegetables, yogurt, [...] [facility] DR MARMOLEJO [place], [place] [address] (Wo rk) 07/13/2022 Office Visit Endocrinology Maile Hinojosa MD [facility] DR MARMOLEJO [place], [place] [address] (Wo rk) 07/25/2022 Office Visit Pulmonology Tong Norman MD [facility] Pulmonary Medici [place], [place] [address] (Wo rk) documented as of this encounter Procedures Procedure Name Priority Date/Time Associated Diagnosis Comme nts AEROSPACE PROJECT MANAGER CYTOLOGY Routine 06/28/2015 5:02 Results for this INTERPRETATION PM EST procedure are in the results section. AEROSPACE PROJECT MANAGER CYTOLOGY FINAL Routine 06/28/2015 5:02 Result s for this REPORT PM EST procedure are i n the results section. CYTOPATHOLOGY Routine 06/28/2015 5:02 Encounter for routine Re sults for this GYNECOLOGICAL PM EST gynecological procedure are in examination the results section. documented in this encounter Results AEROSPACE PROJECT MANAGER Cytology Interpretation (06/28/2015 5:02 PM EST) Component Value Ref Test Analysis Performed At [facility] Method Time Signature Program Associate Cytology Unsatisfactory CERNER Interpretation [facility] Comment: Program Associate Cytology Final Report Acces kendall: [id number] Program Associate Cytology Comment Present [facility] Endocervical Component Unsatisfactory CE RNER [facility] Specimen Anatomical Collection Method Collection Time Receive d Time (Source) Location / / Volume Laterality AP Specimen 06/28/2015 5:02 PM 5 5:32 EST PM EST Rosey Crabtree MD PATHOLOGY/CYTOLOGY ORDERABLE S Performing Organization Address City/State/[place] [address] [facility] Program Associate Cytology Final Report (06/28/2015 5:02 PM EST) Component Value Ref Test Analysis Performed At [facility] Method Time Signature Program Associate Cytology The signing pathologist has (i) examined the relevant preparation(s) for the [facility] Final Report specimen(s) and (ii) rendered or confirmed the diagnosis (es). [facility] Accession Number: [id number] ?Location: 5 L . ? Program Associate Final DIAGNOSIS Unsatisfactory Specimen submitted is unsatisfactory for evaluation. ??See verna dewitt. 07/05/15 ?? Screened by: ??LMY ??SLA 07/05/15 ?? Verified by: ??A AVI stone(ASCP), Suzie Braswell - Supervisor Chlorine Liquefaction DISCUSSION Specimen processed and exami bhumika microscopically [...] I.U.D.?: ? No Pelvic Radiation: ?No Prior AEROSPACE PROJECT MANAGER Therapy?: ?Other (comment) Hist Abnl Pap/Biopsy?: ?? Yes, history of previous abnormal Pap Hist of HPV Vaccine?: ?No Hist of Smoking?: ?No Hist of HAZEL exposure?: ?? No ICD Diagnosis: ? Z12.4 Encounter for screening for malignant neoplasm of cervix Clinical Data, Significant Therapy and Clinical Impression: ?_ This Pap Test has been evalu ated with the assistance of the NeuraviPrep Pap Test Imaging System. Note: The Pap test is a screening test for cervical cancer with an inherent false-negative rate dependent upon several variables. ??For further information please contact the [facility]. Reference: ??Devika LEON. ? ?Charge Accounts Audit Clerk of Pap Smear Results. ??In: ??Sukumar BS, Roni HH, ed. ??The Pap Smear. ??[place]: ??Jonah, 2002: ? ?71-77. Specimen (Source) Anatomical Collection Method Collection Time Re ceived Time Location / / Volume Laterality 06/28/2015 5:02 PM EST Rosey Crabtree MD PATHOLOGY/CYTOLOGY ORDERABLE S Performing Organization Address City/State/[place] [address] [facility] Cytopathology Gynecological (06/28/2015 5:02 PM EST) Specimen Anatomical Collection Method Collection Time Receive d Time (Source) Location / / Volume Laterality AP Specimen 06/28/2015 5:02 PM 5 5:02 EST PM EST Narrative [facility] - 06/28/2015 5:[address] Specimen requisition ordered. ??Separate Pathology report to follow Rosey Crabtree MD PATHOLOGY/CYTOLOGY ORDERABLE S Performing Organization Address City/State/[place] [address] [facility] documented in this encounter Visit Diagnoses Diagnosis Encounter for routine gynecological exam ination Routine gynecological examination Perimenopause Symptomatic menopausal or female climact wendy states documented in this encounter Care Teams Data Support Analyst Relationship Specialty Start Date End Date Monica Garcia MD PCP - General 01/06/13 02/27/17 [address] [place] [address] documented as of this encounter
--- OUTSIDE RECORDS SUMMARY | 2022-06-14 11:15 | XMS_ITS | Encounter Summary ---
:1965 Author Organization [facility] [address] Care Team Providers Name Role Phone Monica Garcia MD Primary Care Provider Reason for Visit Reason Comments Follow-up Encounter Details Date Type Department Care Team Description 01/06/2013 Follow-Up [place]rology at [facility] DR ESPINO Urolithiasis (Primary [facility] Luis Michael Jr., MD [facility] UROLOGY DEPT. [place] [id number] [place]x) [place] [address] Social History Tobacco Use Types Packs/Day [...] Description 07/13/2022 Appointment Radiology Maile Hinojosa MD [facility] ENDOCRINOLOGY [place], [place] [address] (Wo rk) 07/13/2022 Office Visit Endocrinology Maile Hinojosa MD [facility] DR MARMOLEJO [place], [place] [address] (Wo rk) 07/25/2022 Office Visit Pulmonology Tong Norman MD [facility] Pulmonary Medici ne [place], [place] [address] (Wo rk) documented as of this encounter Visit Diagnoses Diagnosis Urolithiasis - Primary Urinary calculus, unspecified documented in this encounter Care Teams Candy Feeder Relationship Specialty Start Date End Date Monica Garcia MD PCP - General 01/06/13 02/27/17 [address] [place] [address] documented as of this encounter
--- OUTSIDE RECORDS SUMMARY | 2022-06-14 11:15 | XMS_ITS | Encounter Summary ---
:1965 Author Organization [facility] [place] [address] Care Team Providers Name Role Phone Monica Garcia MD Primary Care Provider Encounter Details Date Type Department Care Team Description 04/24/2013 Hospital Encounter Mammography at [facility] [place] [address] Social History Tobacco Use Types Packs/Day [...] inhaler daily as needed (winter time). Evening [place] Oil 500 0 08/24/2010 01/24/2015 mg Cap [...] Maile Hinojosa MD [facility] ENDOCRINOLOGY [place], [place] [address] (Wo rk) 07/13/2022 Office Visit Endocrinology Maile Hinojosa MD [facility] ENDOCRINOLOGY [place], [place] [address] (Wo rk) 07/25/2022 Office Visit Pulmonology Tong Norman MD [facility] Pulmonary Medici ne [place], [place] [address] (Wo rk) documented as of [...] on filedocumented in this encounter Care Teams Olive Knocker Relationship Specialty Start Date End Date Monica Garcia MD PCP - General 01/06/13 02/27/17 [address] [place] [address] documented as of this encounter
--- OUTSIDE RECORDS SUMMARY | 2022-06-14 11:15 | XMS_ITS | Encounter Summary ---
:1965 Author Organization [facility] [place] [address] Care Team Providers Name Role Phone Monica Garcia MD Primary Care Provider Encounter Details Date Type Department Care Team Description 06/10/2014 Orders Only Mammography at [facility] Weston Figueroa, Inconclusive mammogram [facility] (Primary [place]x) [place] [address] DIAGNOSTIC RADIOLOGY [place] [address] Social History Tobacco Use Types Packs/Day Years [...] Hinojosa MD [facility] ENDOCRINOLOGY [place], [place] [address] (Wo rk) 07/13/2022 Office Visit Endocrinology Maile Hinojosa MD [facility] ENDOCRINOLOGY [place], [place] [address] (Wo rk) 07/25/2022 Office Visit Pulmonology Tong Norman MD [facility] er Pulmonary Medici [place] [address] (Wo rk) documented as of this encounter [...] mammogram documented in this encounter Care Teams Fixed Income Portfolio Manager Relationship Specialty Start Date End Date Monica Garcia MD PCP - General 01/06/13 02/27/17 [address] [place] [address] documented as of this encounter
--- OUTSIDE RECORDS SUMMARY | 2022-06-14 11:15 | XMS_ITS | Encounter Summary ---
:1965 Author Organization [facility] [place] [address] Care Team Providers Name Role Phone Monica Garcia MD Primary Care Provider Encounter Details Date Type Department Care Team Description 04/10/2016 Office Visit Obstetrics and Ida Ron, Abnormal perimenopausal Gynecology at [facility] LITHOGRAPHIC RETOUCHER APPRENTICE bleeding [facility] [address] [place] OBSTETRICS & [address] GYNECOLOGY [phone] [place], [place] [address] Social History Tobacco Use Types [...] 11, then February 23, then March 15. [place] spotting since the . She loves her [...] Appointment Radiology Maile Hinojosa MD [facility] [address] JALEEL [place] [address] (Rahul ascencio) 07/13/2022 Office Visit Endocrinology Maile Hinojosa MD [facility] DR [place], [place] [address] (Wo rk) 07/25/2022 Office Visit Pulmonology Tong Norman MD [facility] Pulmonary Medici [place], [place] [address] (Wo rk) documented as of this encounter Visit Diagnoses Diagnosis Abnormal perimenopausal bleeding Premenopausal menorrhagia documented in this encounter Care Teams Memorial Designer Relationship Specialty Start Date End Date Monica Garcia MD PCP - General 01/06/13 02/27/17 [address] [place] [address] documented as of this encounter
--- OUTSIDE RECORDS SUMMARY | 2022-06-14 11:16 | XMS_ITS | Encounter Summary ---
:1965 Author Organization [facility] [place] [address] Care Team Providers Name Role Phone Monica Garcia MD Primary Care Provider Encounter Details Date Type Department Care Team Description 08/09/2011 Hospital Encounter Ultrasound at [facility] [place] [address] Social History Tobacco Use Types Packs/Day [...] HCL (SERTRALINE 0 0 03/31/2013 ORAL) Evening [place] Oil 500 0 08/24/2010 01/24/2015 mg Cap [...] MD [facility] [address] MARMOLEJO [place], [place] [address] (Wo rk) 07/13/2022 Office Visit Endocrinology Maile Hinojosa MD [facility] DR MARMOLEJO [place], [place] [address] (Wo rk) 07/25/2022 Office Visit Pulmonology Tong Norman MD [facility] Medical [facility] Pulmonary Medici [place], [place] [address] (Wo rk) documented as of this encounter Visit Diagnoses Not on filedocumented in this encounter Care Teams Civil Engineering Design Draftsperson Relationship Specialty Start Date End Date Monica Garcia MD PCP - General 07/18/10 03/05/12 [address] [place] [address] documented as of this encounter
--- OUTSIDE RECORDS SUMMARY | 2022-06-14 11:16 | XMS_ITS | Encounter Summary ---
:1965 Author Organization [facility] [place] [address] Care Team Providers Name Role Phone Monica Garcia MD Primary Care Provider Encounter Details Date Type Department Care Team Description 12/07/2010 Orders Only [place]rology [place] [facility] [place] Michael Jr., MD [facility] [place] [address] UROLOGY DEPT. [phone] [place], [place] [address] (Wo rk) Social History Tobacco [...] Hinojosa MD [facility] ER [address] JALEEL [place] [address] (Wo rk) 07/13/2022 Office Visit Endocrinology Maile Hinojosa MD [facility] ENDOCRINOLOGY [place], [place] [address] ([facility]) 07/25/2022 Office Visit Pulmonology Tong Norman MD [facility] Pulmonary Medici [place], [place] [address] ([facility]) documented as of this encounter Procedures Procedure [...] 12/07/2010 03 :27 pm) Patient Info ID: ?[id number] ?: ??[birth year] (45 yrs) Name: ?JESSICA GTZ ?Visit Date: 12/07/2010 03:16 pm Procedures URETRO - Retroperitoneal Complete - 002 [id number] ? [id number] Indications ? Stones ? Hydronephrosis ------- History [...] Final 12/07/2010 03:27 pm) Patient Info ID: [id number] : [birth year] (45 yrs ) Name: JESSICA GTZ Visit Date: 12/07 03:16 pm Procedures URETRO - Retroperitoneal Complete - 002 [id number] Indications ? Stones ? Hydronephrosis ------- History [...] on filedocumented in this encounter Care Teams Parcel Post Weigher Relationship Specialty Start Date End Date Monica Garcia MD PCP - General 07/18/10 03/05/12 [address] [place] [address] documented as of this encounter
--- OUTSIDE RECORDS SUMMARY | 2022-06-14 11:16 | XMS_ITS | Encounter Summary ---
:1965 Author Organization [facility] [place] [address] Care Team Providers Name Role Phone Monica Garcia MD Primary Care Provider Encounter Details Date Type Department Care Team Description 07/25/2010 Follow-Up Urology [place] [facility] [place] [place] Michael Jr., MD [facility] [place] [address] UROLOGY DEPT. [phone] [place], [place] [address] (Wo rk) Social History Tobacco Use Types Packs/Day Years Used Date Never Assessed Sex Assigned at Date Recorded Female 01/29/2022 12:45 PM EDT documented as of this encounter Plan of Treatment Upcoming Encounters Date Type Specialty Care Team Description 07/13/2022 Appointment Radiology Maile Hinojosa MD [facility] ENDOCRINOLOGY [place], [place] [address] (Wo rk) 07/13/2022 Office Visit Endocrinology Maile Hinojosa MD [facility] ENDOCRINOLOGY [place], [place] [address] (Wo rk) 07/25/2022 Office Visit Pulmonology Tong Norman MD [facility] Pulmonary Medici [place], [place] [address] (Wo rk) documented as of this encounter Visit Diagnoses Not on filedocumented in this encounter Care Teams Claim Technician Relationship Specialty Start Date End Date Monica Garcia MD PCP - General 07/18/10 03/05/12 [address] [place] [address] documented as of this encounter
--- OUTSIDE RECORDS SUMMARY | 2022-06-14 11:16 | XMS_ITS | Encounter Summary ---
:1965 Author Organization [facility] [place] [address] Care Team Providers Name Role Phone Monica Garcia MD Primary Care Provider Encounter Details Date Type Department Care Team Description 07/27/[address] Scan [place] [facility] DR ESPINO Nephrolithiasis [facility] Luis Michael Jr., MD [facility] [address] [place] [address] Social History Tobacco Use Types [...] HCL (SERTRALINE 0 0 03/31/2013 ORAL) Evening [place] [employer] 500 0 08/24/2010 01/24/2015 mg [...] 07/13/2022 Appointment Radiology Maile Hinojosa MD [facility] MEDICAL [facility] ER ENDOCRINOLOGY [place], [place] [address] (Wo rk) 07/13/2022 Office Visit Endocrinology Maile Hinojosa MD [facility] MEDICAL [facility] ENDOCRINOLOGY [place], [place] [address] (Wo rk) 07/25/2022 Office Visit Pulmonology Tong Norman MD [facility] Cent er Pulmonary Medici ne [place], [place] [address] (Wo rk) documented as of [...] kidney documented in this encounter Care Teams Loan Expeditor Relationship Specialty Start Date End Date Monica Garcia MD PCP - General 07/18/10 03/05/12 [address] [place] [address] documented as of this encounter
--- OUTSIDE RECORDS SUMMARY | 2022-06-14 11:16 | XMS_ITS | Encounter Summary ---
:1965 Author Organization [facility] [place] [address] Care Team Providers Name Role Phone None Primary Care Provider Unavailable Reason for Visit Reason Comments Follow-up hormone patch Encounter Details Date Type Department Care Team Description 07/03/2012 Follow-Up Obstetrics and Ramses Birch MD [facility] OBSTETRICS & [place] [address] Perimenopause (Primary Dx); Gynecology at [facility] Destiney Gomes MD [facility] OBSTETRICS & [place] [address] [place] [address] Social History Tobacco Use Types Packs/Day [...] Surgical History Procedure Date ??? Created by [employer] EFamilia(MSUROL) Procedure Date: 01/16/2008 ??? Lithotripsy Current [...] ??? SERTRALINE HCL (SERTRALINE ORAL) ??? Evening [place] Oil 500 mg Cap ??? albuterol (ACCUNEB) [...] ?? Reports that she is following an aviation maintenance technician for her osteoporosis ?? If bleeding persists at irregular intervals, likely perimenopausal, but consider repeat TVUS at that time to help r/o endometrial pathology. DESTINEY GOMES MD Obgyn PGY4. documented in this encounter Plan of Treatment Upcoming Encounters Date Type Specialty Care Team Description 07/13/2022 Appointment Radiology Maile Hinojosa MD [facility] DR [place], [place] [address] (Wo rk) 07/13/2022 Office Visit Endocrinology Maile Hinojosa MD [facility] ER ENDOCRINOLOGY [place], [place] [address] (Wo rk) 07/25/2022 Office Visit Pulmonology Tong Norman MD [facility] Pulmonary Medici [place], [place] [address] (Wo rk) documented as of this encounter Visit Diagnoses Diagnosis Perimenopause - Primary Symptomatic menopausal or female climact [place] Vulvar discomfort Other vulvodynia documented in this encounter Care Teams Compliance Counsel Relationship Specialty Start Date End Date None PCP - General 03/06/12 01/05/13 None documented as of this encounter
--- OUTSIDE RECORDS SUMMARY | 2022-06-14 11:16 | XMS_ITS | Encounter Summary ---
:1965 Author Organization [facility] [place] [address] Care Team Providers Name Role Phone Monica Garcia MD Primary Care Provider Encounter Details Date Type Department Care Team Description 12/07/2010 Office Visit Lab 3L [place] [address] Social History Tobacco Use Types Packs/Day [...] Hinojosa MD [facility] DR [place]EL [place], [place] [address] (Wo rk) 07/13/2022 Office Visit Endocrinology Maile Hinojosa MD [facility] DR [place], [place] [address] (Wo rk) 07/25/2022 Office Visit Pulmonology Tong Norman MD [facility] Medical [facility] Pulmonary Mediceduardo [place], [place] [address] (Wo rk) documented as of this encounter Visit Diagnoses Not on filedocumented in this encounter Care Teams Records Administrator Relationship Specialty Start Date End Date Monica Garcia MD PCP - General 07/18/10 03/05/12 [address] [place] [address] documented as of this encounter
--- OUTSIDE RECORDS SUMMARY | 2022-06-14 11:16 | XMS_ITS | Encounter Summary ---
:1965 Author Organization [facility] [place] [address] Care Team Providers Name Role Phone Monica Garcia MD Primary Care Provider Encounter Details Date Type Department Care Team Description 01/06/2013 Hospital Encounter Ultrasound at [facility] [place] [address] Social History Tobacco Use Types Packs/Day [...] HCL (SERTRALINE 0 0 03/31/2013 ORAL) Evening [place] Oil 500 0 08/24/2010 01/24/2015 mg Cap [...] Radiology Maile Hinojosa MD [facility] ENDOCRINOLOGY [place], [place] [address] (Wo rk) 07/13/2022 Office Visit Endocrinology Maile Hinojosa MD [facility] ENDOCRINOLOGY [place], [place] [address] (Wo rk) 07/25/2022 Office Visit Pulmonology Tong Norman MD [facility] Pulmonary Medici ne [place], [place] [address] (Wo rk) documented as of [...] 01/06/2013 02 :33 pm) Patient Info ID: ?[id number] ?: ??[birth year] (47 yrs) Name: ?JESSICA Melvin GTZ ?Visit Date: 01/06/2013 02:22 pm Performed By Performed By: ?Hernan GARNER, ??Rozina christianson Attending: ? Veronica GILL, Weston Maloney Referred By: ? FERDINAND MICHAEL MD Service(s) Provided URETRO - Retroperitoneal Complete - 002 [id number] ? [id number] Indications History of kidney stones Comparison Ultrasound: [...] Final 01/06/2013 02:33 pm) Patient Info ID: [id number] : [birth year] (47 yrs ) Name: JESSICA GTZ Visit Date: 01/06 02:22 pm Performed By Performed By: Xiomy Becerra RDMS Attending: [place] MD Referred By: FERDINAND MICHAEL MD Service(s) Provided URETRO - Retroperitoneal Complete - 002 [id number] Indications History of kidney stones Comparison Ultrasound: [...] kidney documented in this encounter Care Teams Licensed Optical Dispenser Relationship Specialty Start Date End Date Monica Garcia MD PCP - General 01/06/13 02/27/17 [address] [place] [address] documented as of this encounter
--- OUTSIDE RECORDS SUMMARY | 2022-06-14 11:16 | XMS_ITS | Encounter Summary ---
:1965 Author Organization [facility] [place] [address] Care Team Providers Name Role Phone None Primary Care Provider Unavailable Encounter Details Date Type Department Care Team Description 03/27/2012 Telephone Endocrinology at [facility] Jennifer Pike MD [facility] [place] [address] ENDOCRINOLOGY DEPT [phone] [place], [place] [address] (Wo rk) Social History Tobacco [...] Maile Hinojosa MD [facility] ENDOCRINOLOGY [place], [place] [address] (Wo rk) 07/13/2022 Office Visit Endocrinology Maile Hinojosa MD [facility] DR MARMOLEJO [place], [place] [address] (Wo rk) 07/25/2022 Office Visit Pulmonology Tong Norman MD [facility] Pulmonary Medici [place], [place] [address] (Wo rk) documented as of this encounter Visit Diagnoses Not on filedocumented in this encounter Care Teams Vegetable Cutter Relationship Specialty Start Date End Date None PCP - General 03/06/12 01/05/13 None documented as of this encounter
--- OUTSIDE RECORDS SUMMARY | 2022-06-14 11:16 | XMS_ITS | Encounter Summary ---
:1965 Author Organization [facility] [place] [address] Care Team Providers Name Role Phone Monica Garcia MD Primary Care Provider Encounter Details Date Type Department Care Team Description 12/12/2010 External Results Obstetrics and Bobby Diamond, Gynecology at [facility] [place] [address] OBSTETRICS & [phone] GYNECOLOGY [place], [place] [address] (Wo rk) Social History [...] Maile Hinojosa MD [facility] ER DR JALEEL [place] [address] (Wo rk) 07/13/2022 Office Visit Endocrinology Maile Hinojosa MD [facility] ER ENDOCRINOLOGY [place], [place] [address] (Wo rk) 07/25/2022 Office Visit Pulmonology Tong Norman MD [facility] Pulmonary Medici ne [place], [place] [address] (Wo rk) documented as of this encounter Procedures Procedure Name Priority Date/Time Associated Diagnosis Comme nts LAB SCAN Routine 12/08/2010 documented in this encounter Results LAB SCAN (12/08/2010) Narrative This result has an attachment that is no t available. Bobby Diamond MD MEDIA MGR SCAN EXT ORDR/RSLT documented in this encounter Visit Diagnoses Not on filedocumented in this encounter Care Teams Pay Agent Relationship Specialty Start Date End Date Monica Garcia MD PCP - General 07/18/10 03/05/12 [address] [place] [address] documented as of this encounter
--- OUTSIDE RECORDS SUMMARY | 2022-06-14 11:16 | XMS_ITS | Encounter Summary ---
:1965 Author Organization [facility] [place] [address] Care Team Providers Name Role Phone Monica Garcia MD Primary Care Provider Encounter Details Date Type Department Care Team Description 07/26/2010 Follow-Up Dermatology Sarah Kidd MD [facility] [place] [address] [facility] [phone] [place] [id number] (Wo rk) Social History Tobacco Use Types Packs/Day Years Used Date Never Assessed Sex Assigned at Date Recorded Female 01/29/2022 12:45 PM EDT documented as of this encounter Plan of Treatment Upcoming Encounters Date Type Specialty Care Team Description 07/13/2022 Appointment Radiology Maile Hinojosa MD [facility] ENDOCRINOLOGY [place], [place] [address] (Wo rk) 07/13/2022 Office Visit Endocrinology Maile Hinojosa MD [facility] DR MARMOLEJO [place], [place] [address] (Wo rk) 07/25/2022 Office Visit Pulmonology Tong Norman MD [facility] Pulmonary Medici [place], [place] [address] (Wo rk) documented as of this encounter Visit Diagnoses Not on filedocumented in this encounter Care Teams Master Police Detective Relationship Specialty Start Date End Date Monica Garcia MD PCP - General 07/18/10 03/05/12 [address] [place] [address] documented as of this encounter
--- OUTSIDE RECORDS SUMMARY | 2022-06-14 11:16 | XMS_ITS | Encounter Summary ---
:1965 Author Organization [place] [address] Care Team Providers Name Role Phone None Primary Care Provider Unavailable Reason for Visit Reason Comments Follow-up f/u ovarian cyst/ annual Encounter Details Date Type Department Care Team Description 03/06/2012 Follow-Up Obstetrics and CLINIC, DR ESPINO Pap smear for cervical cancer screening (Primary Dx); [place] [facility] Ramses Birch MD [facility] OBSTETRICS & [place] [address] Perimenopause; [place] [address] Social History Tobacco Use Types Packs/Day [...] Ramses Birch - 03/06/2012 4:12 PM EDT STUDENT COUNSELOR Comprehensive History and Physical Exam Stacy Albright [id number] 1965 Service Date: 03/06/2012 ID/CC: [id number] y.o. [...] Raynaud's disease ??? Migraines ??? Perimenopause Past DIRECTOR OF SPECIAL EDUCATION History: Pregnancies: OB History Grav Para Term [...] Surgical History Procedure Date ??? Created by [employer]SEWORKSUROAyi Laile) Procedure Date: 01/16/2008 ??? Lithotripsy Family History: [...] ??? SERTRALINE HCL (SERTRALINE ORAL) ??? Evening [place] Oil 500 mg Cap ??? albuterol (ACCUNEB) [...] lb) Please see PE section below for non-blending supervisor exam Female consulting nurse present for breast and pelvic exam Breasts: [...] eD - please see PE section for non-blending supervisor exam Subjective: Patient ID: Stacy Albright is [...] Radiology Maile Hinojosa MD [facility] [address] [place]EL [place] [address] (Rahul ascencio) 07/13/2022 Office Visit Endocrinology Maile Hinojosa MD [facility] DR [place]ALEEL [place] [address] (Wo rk) 07/25/2022 Office Visit Pulmonology Tong Norman MD [facility] Pulmonary Mediceduardo [place], [place] [address] (Wo rk) documented as of this encounter [...] Address City/State/[place] [address] [facility] documented in this encounter Visit Diagnoses Diagnosis Pap smear for cervical cancer screening - Primary Screening for malignant neoplasm of the cervix Perimenopause Symptomatic menopausal or female climact [place] Osteoporosis Osteoporosis, unspecified documented in this encounter Care Teams Sugar Plantation Manager Relationship Specialty Start Date End Date None PCP - General 03/06/12 01/05/13 None documented as of this encounter
--- OUTSIDE RECORDS SUMMARY | 2022-06-14 11:16 | XMS_ITS | Encounter Summary ---
:1965 Author Organization [facility] [place] [address] Care Team Providers Name Role Phone Monica Garcia MD Primary Care Provider Encounter Details Date Type Department Care Team Description 07/25/2010 Procedure visit [place] [address] Social History Tobacco Use Types Packs/Day Years Used Date Never Assessed Sex Assigned at Date Recorded Female 01/29/2022 12:45 PM EDT documented as of this encounter Plan of Treatment Upcoming Encounters Date Type Specialty Care Team Description 07/13/2022 Appointment Radiology Maile Hinojosa MD [facility] DR MARMOLEJO [place], [place] [address] (Wo rk) 07/13/2022 Office Visit Endocrinology Maile Hinojosa MD [facility] DR MARMOLEJO [place], [place] [address] (Wo rk) 07/25/2022 Office Visit Pulmonology Tong Norman MD [facility] Pulmonary Medici ne [place], [place] [address] (Wo rk) documented as of this encounter Visit Diagnoses Not on filedocumented in this encounter Care Teams Python Java Developer Relationship Specialty Start Date End Date Berrian, Monica M, MD PCP - General 07/18/10 03/05/12 [address] [place] [address] documented as of this encounter
--- OUTSIDE RECORDS SUMMARY | 2022-06-14 11:16 | XMS_ITS | Encounter Summary ---
:1965 Author Organization [place] [address] Care Team Providers Name Role Phone None Primary Care Provider Unavailable Encounter Details Date Type Department Care Team Description 03/06/2012 Hospital Encounter Mammography at [facility] [place] [address] Social History Tobacco Use Types Packs/Day [...] HCL (SERTRALINE 0 0 03/31/2013 ORAL) Evening [place] Oil 500 0 08/24/2010 01/24/2015 mg Cap [...] Hinojosa MD [facility] ENDOCRINOLOGY [place], [place] [address] (Wo rk) 07/13/2022 Office Visit Endocrinology Maile Hinojosa MD [facility] ENDOCRINOLOGY [place], [place] [address] (Wo rk) 07/25/2022 Office Visit Pulmonology Tong Norman MD [facility] Pulmonary Medici [place], [place] [address] (Wo rk) documented as of this encounter Procedures Procedure Name Priority Date/Time Associated Diagnosis Comme nts INSTALLATION SUPERINTENDENT CYTOLOGY FINAL Routine 03/06/2012 8:45 PM Res ults for this REPORT EDT procedure are i n the results section. MAMMO SCREENING CAD Routine 03/06/2012 3:58 PM Re sults for this BILATERAL EDT procedure are i n the results section. documented in this encounter Results INSTALLATION SUPERINTENDENT CYTOLOGY FINAL REPORT (03/06/2012 8:45 PM EDT) Component Value Ref Test Analysis Performed At [facility] Range Method Time Signature Testing Manager Cytology CERNER Final Report ? [facility] ? Provider: ?? [place] BIRCH ?Pt. Name: ?? LAW SON, JESSICA Charles ? Acc #: ?[id number] ?Pt. MRN: ?[id number] ? Col Date: ?? 03/06/2012 ? /Sex: ?1 10/14/1964,(46 ? years),Female ? Rec Date: ?? 03/06/2012 ? LOC: ?5L ? CYTOPATHOLOGY: ??INSTALLATION SUPERINTENDENT ? ---Adequacy--- ? Specimen submitted is satisfactory. ? Endocervical component present. ? ---Cytopathologic Diagnosis--- ? Infection and/or Reactive Repair Process. ? Note: ??Reactive changes are present in the epithel ial cells (benign ? cellular changes). ?? This Pap test is negative for intraepithelial lesion ? or malignancy. (NILM) ? 03/19/12 ?? Screened by: ??SLA ??SUPERVISOR ASSEMBLY ROOM ? 03/23/12 ?? Verified by: ??YUNG GILL , DRE - Pathologist ? ---Clinical Information--- ? HPV Option: ? Reflex HPV ? Preparation: ?Liquid Based Pap ? Specimen Source: ?Cervical Endocervical LBP ? LMP: ?continous bleeding ? Hormones?: ?Yes ? Hysterectomy?: ?No ?: ?No ?: ?No ? I.U.D.?: ?No ? Pelvic Radiation: ? No ? Prior INSTALLATION SUPERINTENDENT Therapy?: ? No ? Hist Abnl Pap/Biopsy?: [...] ??For further ? information please contact the [facility] Laboratory. ? Reference: ??Antwan sheriff CS. ??Manager Business of Pap Smear Results. ??In: ? Sukumar BS, Roni HH, ed. ??The Pap Smear. ??[place]: ??Jonah, 2002: ? 71-77. Specimen (Source) Anatomical Collection Method Collection Time Re ceived Time Location / / Volume Laterality 03/06/2012 8:45 PM EDT [place] Birch MD PATHOLOGY/CYTOLOGY ORDERABLE S Performing Organization Address City/State/ZIP Code Phon e Number [place] [id number] CERNER [facility] DIGITAL [...] on filedocumented in this encounter Care Teams Liquefied Petroleum Gasfitter Relationship Specialty Start Date End Date None PCP - General 03/06/12 01/05/13 None documented as of this encounter
--- OUTSIDE RECORDS SUMMARY | 2022-06-14 11:16 | XMS_ITS | Encounter Summary ---
:1965 Author Organization [place] [address] Care Team Providers Name Role Phone Monica Garcia MD Primary Care Provider Reason for Visit Reason Comments Post Op Encounter Details Date Type Department Care Team Description 12/07/2010 Follow-Up Urology at [facility] Chetna Waddell Nephrolithiasis (Primary [facility] [address] [place] [place] [address] UROLOGY DEPT. [phone] [place], [place] [address] Social History Tobacco Use Types [...] Hinojosa MD [facility] ENDOCRINOLOGY [place], [place] [address] (Wo rk) 07/13/2022 Office Visit Endocrinology Maile Hinojosa MD [facility] ENDOCRINOLOGY [place], [place] [address] (Wo rk) 07/25/2022 Office Visit Pulmonology Tong Norman MD [facility] Pulmonary Medici ne [place], [place] [address] (Wo rk) documented as of this encounter Results US retroperitoneal complete (07/09/2011 1:31 PM EST) Anatomical Region Laterality Modality Abdomen Ultrasound Specimen (Source) Anatomical Collection Method Collection Time Re ceived Time Location / / Volume Laterality 07/09/2011 1:31 PM EST Narrative 07/09/2011 1:47 PM EST ? Renal Rep ort ? (Signed Final 07/09/2011 01 :47 pm) Patient Info ID: ? [id number] ? : [birth year] (45 yrs) Name: ? JESSICA GTZ ? Visit Date: 07/09/2011 01:28 pm Performed By Performed By: ?Daphne Menjivar RDMS Associate: ? Luciano GILL, Sumanth Ruiz Attending: ? Luna GILL, Genie Ruiz Referred By: ? CIERA ARMENDARIZ Accession#: ?[id number] Service(s) Provided URETRO - Retroperitoneal Complete - 002 [id number] ? [id number] Indications H/o nephrolithiasis, assess for new sto [...] Final 07/09/2011 01:47 pm) Patient Info ID: [id number] : [birth year] (45 yrs ) Name: JESSICA GTZ Visit Date: 07/09 01:28 pm Performed By Performed By: Daphne eMnjivar RDMS Associate: Sumanth Wolf MD Attending: Genie Carrasco MD Referred By: CIERA PATTERSONP Service(s) Provided URETRO - Retroperitoneal Complete - 002 [id number] Indications H/o nephrolithiasis, assess for new sto [...] kidney documented in this encounter Care Teams Elastic Attacher Coverstitch Relationship Specialty Start Date End Date Monica Garcia MD PCP - General 07/18/10 03/05/12 [address] [place] [address] documented as of this encounter
--- OUTSIDE RECORDS SUMMARY | 2022-06-14 11:16 | XMS_ITS | Encounter Summary ---
:1965 Author Organization [facility] [place] [address] Care Team Providers Name Role Phone Monica Garcia MD Primary Care Provider Encounter Details Date Type Department Care Team Description 08/07/2011 Orders Only Obstetrics and Bobby Diamond Ovarian cyst (Primary Gynecology at [facility] MD Victor Manuel Dx) [facility] [place] [address] OBSTETRICS & [phone] GYNECOLOGY [place], [place] [address] Social History Tobacco Use Types [...] Hinojosa MD [facility] DR [place]EL [place], [place] [address] (Wo rk) 07/13/2022 Office Visit Endocrinology Maile Hinojosa MD [facility] ENDOCRINOLOGY [place], [place] [address] (Wo rk) 07/25/2022 Office Visit Pulmonology Tong Norman MD [facility] Pulmonary Medici [place], [place] 0[address] (Wo rk) documented as of this encounter Visit Diagnoses Diagnosis Ovarian cyst - Primary Other and unspecified ovarian cyst documented in this encounter Care Teams Cloud Consultant Relationship Specialty Start Date End Date Monica Garcia MD PCP - General 07/18/10 03/05/12 [address] [place] [address] documented as of this encounter
--- OUTSIDE RECORDS SUMMARY | 2022-06-14 11:16 | XMS_ITS | Encounter Summary ---
:1965 Author Organization [facility] [place] [address] Care Team Providers Name Role Phone Monica Garcia MD Primary Care Provider Reason for Visit Reason Comments Ovarian Cyst Encounter Details Date Type Department Care Team Description 10/04/2011 Office Visit Obstetrics and Marcus Hill, Ovarian cystic mass Gynecology at [facility] Michelle Curry MD (Primary Dx) [facility] [address] [place], [place] OBSTETRICS & [phone] GYNECOLOGY [phone] [place], [place] 0[address] (Wo rk) Social History Tobacco [...] Hinojosa MD [facility] ENDOCRINOLOGY [place], [place] 0[address] (Wo rk) 07/13/2022 Office Visit Endocrinology Maile Hinojosa MD [facility] DR MARMOLEJO [place], [place] [address] (Wo rk) 07/25/2022 Office Visit Pulmonology Tong Norman MD [facility] Pulmonary Medici [place], [place] [address] (Wo rk) documented as of this encounter Visit Diagnoses Diagnosis Ovarian cystic mass - Primary Other and unspecified ovarian cyst documented in this encounter Care Teams Ultrasonic Tester Relationship Specialty Start Date End Date Monica Garcia MD PCP - General 07/18/10 03/05/12 [address] [place] [address] documented as of this encounter
--- OUTSIDE RECORDS SUMMARY | 2022-06-14 11:16 | XMS_ITS | Encounter Summary ---
:1965 Author Organization [place] [address] Care Team Providers Name Role Phone Monica Garcia MD Primary Care Provider Reason for Visit Reason Onset Date Comments Results 07/31/2011 Encounter Details Date Type Department Care Team Description 07/31/2011 Telephone Urology at [facility] Luis Michael Jr., MD Results [facility] [place] [address] UROLOGY DEPT. [phone] [place], [place] [address] (Wo rk) Social History Tobacco [...] noted. I recommended that she see her PIANO TECHNICIAN for further discussion and/or eval. She understands and will plan to call PIANO TECHNICIAN tomorrow. No urologic intervention needed at this time. documented in this encounter Plan of Treatment Upcoming Encounters Date Type Specialty Care Team Description 07/13/2022 Appointment Radiology Maile Hinojosa MD [facility] ENDOCRINOLOGY [place], [place] [address] (Wo rk) 07/13/2022 Office Visit Endocrinology Maile Hinojosa MD [facility] DR MARMOLEJO [place], [place] [address] (Wo rk) 07/25/2022 Office Visit Pulmonology Tong Norman MD [facility] Pulmonary Medici [place], [place] [address] (Wo rk) documented as of this encounter Visit Diagnoses Not on filedocumented in this encounter Care Teams Screen Printing Machine Operator Relationship Specialty Start Date End Date Monica Garcia MD PCP - General 07/18/10 03/05/12 [address] [place] [address] documented as of this encounter
--- OUTSIDE RECORDS SUMMARY | 2022-06-14 11:16 | XMS_ITS | Encounter Summary ---
:1965 Author Organization [facility] [place] [address] Care Team Providers Name Role Phone None Primary Care Provider Unavailable Reason for Visit Reason Comments Osteoporosis Encounter Details Date Type Department Care Team Description 03/25/2012 Office Visit Endocrinology at [facility] Cuate Pearl MD Osteoporosis (Primary [facility] Dx) [facility] [place] [address] ENDOCRINOLOGY [phone] [place], [place] [address] Social History Tobacco Use Types [...] 46 y.o. year old female evaluated by BAND CUTTING MACHINE OPERATOR and found to have osteoporosis on [...] total Calcium (Dietary+supplement) of 1200-1500mg and vitamin [id number] IU daily.Patient should not exceed 1500 mg [...] with Dr Isabel Romero MD Endocrinology Fellow [phone] documented in this encounter Plan of Treatment Upcoming Encounters Date Type Specialty Care Team Description 07/13/2022 Appointment Radiology Maile Hinojosa MD [facility] DR MARMOLEJO [place], [place] [address] (Wo rk) 07/13/2022 Office Visit Endocrinology Maile Hinojosa MD [facility] [address] MARMOLEJO [place], [place] [address] (Wo rk) 07/25/2022 Office Visit Pulmonology Tong Norman MD [facility] Pulmonary Medici [place], [place] 0[address] (Wo rk) documented as of this encounter [...] Organization Address City/State/[place] [address] CERNER MILLENNIUM PTH (03/25/2012 [...] Address City/State/ZIP Code [place] [address] CERNER MILLENNIUM VIT D [...] of 10/02/2011 the Vitamin D Total, 25 [place] xy assays are being analyzed by the [facility] Chemistry Laboratory. ??There is NO CHANGE in units. ??Please contact the chemistry laboratory at [phone] with kentrell laguerre. Specimen Anatomical Collection Method Collection Time Receive d Time (Source) Location / / Volume Laterality Blood specimen 03/25/2012 2:53 PM 012 3:18 (specimen) EDT PM EDT Resulting Agency Comment Spec In Lab Cuate Hall MD CHEMISTRY ORDERABLES Performing Organization Address City/[facility]/ZIP Code [place] [address] CERNER MILLENNIUM documented in this encounter Visit Diagnoses Diagnosis Osteoporosis - Primary Osteoporosis, unspecified documented in this encounter Care Teams Historic Site Administrator Relationship Specialty Start Date End Date None PCP - General 03/06/12 01/05/13 None documented as of this encounter
--- OUTSIDE RECORDS SUMMARY | 2022-06-14 11:16 | XMS_ITS | Encounter Summary ---
:1965 Author Organization [facility] [place] [address] Care Team Providers Name Role Phone Monica Garcia MD Primary Care Provider Encounter Details Date Type Department Care Team Description 01/08/2012 Hospital Encounter Ultrasound at [facility] [place] [address] Social History Tobacco Use Types Packs/Day [...] HCL (SERTRALINE 0 0 03/31/2013 ORAL) Evening [place] Oil 500 0 08/24/2010 01/24/2015 mg Cap [...] Hinojosa MD [facility] ENDOCRINOLOGY [place], [place] [address] (Wo rk) 07/13/2022 Office Visit Endocrinology Maile Hinojosa MD [facility] ENDOCRINOLOGY [place], [place] [address] (Wo rk) 07/25/2022 Office Visit Pulmonology Tong Norman MD [facility] Pulmonary Medici [place], [place] [address] (Wo rk) documented as of [...] 04 :58 pm) Patient Info ID: ? [id number] ? : [birth year] (46 yrs) Name: ? JESSICA GTZ ? Visit Date: 01/08/2012 04:29 pm Performed By Performed By: ?Akash Muse RDMS Attending: ? Veronica GILL, Weston Maloney Referred By: ? FERDINAND MICHAEL MD Service(s) Provided URETRO - Retroperitoneal Complete - 002 [id number] ? [id number] Indications Nephrolithiasis Right Kidney Size (cm) ?L: [...] Final 01/08/2012 04:58 pm) Patient Info ID: [id number] : [birth year] (46 yrs ) Name: JESSICA GTZ Visit Date: 01/07 04:29 pm Performed By Performed By: Akash Muse RDMS Attending: West[place] MD Referred By: FERDINAND MICHAEL MD Service(s) Provided URETRO - Retroperitoneal Complete - [phone] Indications Nephrolithiasis Right Kidney Size (cm) L: [...] documented in this encounter Care Teams Supervisor Loading Relationship Specialty Start Date End Date Monica Garcia MD PCP - General 07/18/10 03/05/12 [address] [place] [address] documented as of this encounter
--- OUTSIDE RECORDS SUMMARY | 2022-06-14 11:16 | XMS_ITS | Encounter Summary ---
:1965 Author Organization [facility] [place] [address] Care Team Providers Name Role Phone Monica Garcia MD Primary Care Provider Encounter Details Date Type Department Care Team Description 07/25/2011 Hospital Encounter XRay at [facility] Nephrolithiasis [address] [place] [address] [place] [address] Social History Tobacco Use Types Packs/Day [...] HCL (SERTRALINE 0 0 03/31/2013 ORAL) Evening [place] Oil 500 0 08/24/2010 01/24/2015 mg Cap [...] Hinojosa MD [facility] ENDOCRINOLOGY [place], [place] [address] (Wo rk) 07/13/2022 Office Visit Endocrinology Maile Hinojosa MD [facility] DR MARMOLEJO [place], [place] [address] (Wo rk) 07/25/2022 Office Visit Pulmonology Tong Norman MD [facility] Pulmonary Medici ne [place], [place] [address] (Wo rk) documented as of [...] kidney documented in this encounter Care Teams Binding Dyer Relationship Specialty Start Date End Date Monica Garcia MD PCP - General 07/18/10 03/05/12 [address] [place] [address] documented as of this encounter
--- OUTSIDE RECORDS SUMMARY | 2022-06-14 11:16 | XMS_ITS | Encounter Summary ---
:1965 [place] [address] Care Team Providers Name Role Phone Monica Garcia MD Primary Care Provider Encounter Details Date Type Department Care Team Description 08/24/2010 Hospital Encounter Same Day Program at Ferdinand Michael Jr., [facility] [place] [address] [place] [address] [phone] (Wo rk) Social History Tobacco Use Types [...] 0 08/24/2010 07/25/2011 mcg nasal spray Evening Muse Oil 500 mg 0 08/24/20 10 01/24/2015 [...] Hinojosa MD [facility] ENDOCRINOLOGY [place], [place] [address] (Wo rk) 07/13/2022 Office Visit Endocrinology Maile Hinojosa MD [facility] DR MARMOLEJO [place], [place] [address] (Wo rk) 07/25/2022 Office Visit Pulmonology Tong Norman MD [facility] Pulmonary Medici ne [place], [place] [address] (Wo rk) documented as of this encounter Procedures Procedure Name Priority Date/Time Associated Diagnosis Comme nts SURGICAL PATHOLOGY Routine 08/24/2010 6:40 PM Res ults for this REPORT EST procedure are i n the results section. documented in this encounter Results PATHOLOGY SURGICAL PATHOLOGY FINAL REPORT (08/24/2010 6:40 PM EST) Component Value Ref Test Analysis Performed At [facility] gist Range Method Time Signature Surgical CERNER Pathology ? [facility] Report ? Provider: ?? FERDINAND MICHAEL JR ?? Pt. Name: ?? TRESA JESSICA Charles ? Acc #: ?[id number] ?Pt. MRN: ?[id number] ? Col Date: ?? 08/24/2010 ?/Sex: ?1 [...] Report of Stone A nalysis, order # [id number], has been received from the ? [facility], [address] , [place], [place], [place] ??[address]. ? For the full text of the [...] MD PATHOLOGY/CYTOLOGY ORDERABLE S Performing Organization Address [facility]/State/[place] [address] HOSPITAL LABORATORY [facility] documented in this encounter Visit Diagnoses Not on filedocumented in this encounter Care Teams Computer Aided Drafter Relationship Specialty Start Date End Date Monica Garcia MD PCP - General 07/18/10 03/05/12 [address] [place] [address] documented as of this encounter
--- OUTSIDE RECORDS SUMMARY | 2022-06-14 11:16 | XMS_ITS | Encounter Summary ---
:1965 Author Organization [facility] [place] [address] Care Team Providers Name Role Phone None Primary Care Provider Unavailable Reason for Visit Reason Comments Nephrolithiasis Encounter Details Date Type Department Care Team Description 07/08/2012 Follow-Up Urology at [facility], DR ESPINO Nephrolithiasis (Primary [facility] Ferdinand Michael Jr., MD [facility] [place] [address] Dx) [place] [id number] Social History Tobacco Use Types Packs/Day Years [...] Hinojosa MD [facility] ENDOCRINOLOGY [place], [place] [address] (Wo rk) 07/13/2022 Office Visit Endocrinology Maile Hinojosa MD [facility] DR MARMOLEJO [place], [place] [address] (Wo rk) 07/25/2022 Office Visit Pulmonology Tong Norman MD [facility] Pulmonary Medici [place], [place] [address] (Wo rk) documented as of this encounter Results US retroperitoneal complete (01/06/2013 2:23 PM EDT) Anatomical Region Laterality Modality Abdomen Ultrasound Specimen (Source) Anatomical Collection Method Collection Time Re ceived Time Location / / Volume Laterality 01/06/2013 2:23 PM EDT Narrative 01/06/2013 2:34 PM EDT ? Renal ? (Signed Final 01/06/2013 02 :33 pm) Patient Info ID: ?[id number] ?: ??[birth year] (47 yrs) Name: ?JESSICA Melvin GTZ ?Visit Date: 01/06/2013 02:22 pm Performed By Performed By: ?Hernan GARNER, ??Rozina christianson Attending: ? Veronica GILL, Weston Maloney Referred By: ? FERDINAND MICHAEL MD Service(s) Provided URETRO - Retroperitoneal Complete - 002 [id number] ? [id number] Indications History of kidney stones Comparison Ultrasound: [...] Final 01/06/2013 02:33 pm) Patient Info ID: [id number] : [birth year] (47 yrs ) Name: JESSICA GTZ Visit Date: 01/06 02:22 pm Performed By Performed By: Xiomy Becerra RDMS Attending: [place] MD. Referred By: FERDINAND MICHAEL MD Service(s) Provided URETRO - Retroperitoneal Complete - [phone] Indications History of kidney stones Comparison Ultrasound: [...] kidney documented in this encounter Care Teams Bond Trader Relationship Specialty Start Date End Date None PCP - General 03/06/12 01/05/13 None documented as of this encounter
--- OUTSIDE RECORDS SUMMARY | 2022-06-14 11:16 | XMS_ITS | Encounter Summary ---
:1965 Author Organization [facility] [place] [address] Care Team Providers Name Role Phone Monica Garcia MD Primary Care Provider Encounter Details Date Type Department Care Team Description 12/07/2010 Procedure visit [address] [address] Social History Tobacco Use Types Packs/Day Years [...] Maile Hinojosa MD [facility] ER DR MARMOLEJO [place], [place] [address] (Wo rk) 07/13/2022 Office Visit Endocrinology Maile Hinojosa MD [facility] ER DR JALEEL [place], [place] [address] (Wo rk) 07/25/2022 Office Visit Pulmonology Tong Norman MD [facility] Pulmonary Medici [place], [place] [address] (Wo rk) documented as of this encounter Visit Diagnoses Not on filedocumented in this encounter Care Teams Mercury Cell Cleaner Relationship Specialty Start Date End Date Monica Garcia MD PCP - General 07/18/10 03/05/12 [address] [place] [address] documented as of this encounter
--- OUTSIDE RECORDS SUMMARY | 2022-06-14 11:16 | XMS_ITS | Encounter Summary ---
:1965 Author Organization [facility] [place] [address] Care Team Providers Name Role Phone Monica Garcia MD Primary Care Provider Reason for Visit Reason Comments Nephrolithiasis Encounter Details Date Type Department Care Team Description 07/25/2011 Follow-Up Urology at [facility] Ferdinand Michael Nephrolithiasis ([facility] , Dx) [place] [address] UROLOGY DEPT. [phone] [place], [place] [address] Social History Tobacco Use Types [...] MD [facility] ENDOCRINOLOGY [place], [place] 0[address] (Wo rk) 07/13/2022 Office Visit Endocrinology Maile Hinojosa MD [facility] DR MARMOELJO [place], [place] [address] (Wo rk) 07/25/2022 Office Visit Pulmonology Tong Norman MD [facility] Pulmonary Medici ne [place], [place] [address] (Wo rk) documented as of [...] Clean Catch Urine (07/25/2011 11:11 AM EST) [facility] Method Time Signature Urine Culture CERNER ? Patient Name: JESSICA GTZ ? Ordered By: FERDINAND MICHAEL JR [facility] ? MR#: [id number] ?LOC: ??5B ? /Sex: ??1965 (45 years), [...] Organization Address City/State/[place] [address] [facility] documented in this encounter Visit Diagnoses Diagnosis Nephrolithiasis - Primary Calculus of kidney Nephrolithiasis Calculus of kidney documented in this encounter Care Teams Plasterer Spot Relationship Specialty Start Date End Date Monica Garcia MD PCP - General 07/18/10 03/05/12 [address] [place] [address] documented as of this encounter
--- OUTSIDE RECORDS SUMMARY | 2022-06-14 11:16 | XMS_ITS | Encounter Summary ---
:1965 Author Organization [place] [address] Care Team Providers Name Role Phone Monica Garcia MD Primary Care Provider Reason for Visit Reason Comments Follow-up US Menstrual Problem 5 week period last month cur rently on period today Encounter Details Date Type Department Care Team Description 08/09/2011 Follow-Up Obstetrics and Bobby Diamond Ovarian cyst (Primary Dx); Gynecology at [facility] MD Victor Manuel Abnormal bleeding in menstrual cycle [facility] [place] [address] OBSTETRICS & [phone] GYNECOLOGY [place], [place] [address] (Wo rk) Social History Tobacco [...] improved since Combipatch. She also takes Evening Elsie everyday to help with cramping and evening out her periods. 07/31/2011 encounter Luis Michael Jr., MD Signed Luis Michael Jr., MD 07/31/11 06:[address] reviewed, no stones seen. Left ovarian or paraovarian cyst noted. I recommended that she see herGYN for further discussion and/or eval. She understands and will plan to call CHIMNEY SUPERVISOR BRICK tomorrow. No urologic intervention needed at this [...] History Procedure Date ??? Created by interface [employer]) Procedure Date: 01/16/2008 ??? Lithotripsy Family History [...] Radiology Maile Hinojosa MD [facility] ENDOCRINOLOGY [place], [place] [address] (Wo rk) 07/13/2022 Office Visit Endocrinology Maile Hinojosa MD [facility] DR MARMOLEJO [place], [place] [address] (Wo rk) 07/25/2022 Office Visit Pulmonology Tong Norman MD [facility] Pulmonary Medici ne [place], [place] [address] ([facility]) documented as of this encounter Results US Transvaginal non OB (10/04/2011 4:01 PM EST) Anatomical Region Laterality Modality Ultrasound Specimen (Source) Anatomical Collection Method Collection Time Re ceived Time Location / / Volume Laterality 10/04/2011 4:01 PM EST Narrative 10/04/2011 4:09 PM EST ?Gynecological Report ? (Signed Final 10/04/2011 04 :08 pm) Patient Info ID: ? [id number] ? : [birth year] (46 yrs) Name: ? JESSICA Charles TRESA ? Visit Date: 10/04/2011 03:50 pm Performed By Performed By: ?Lay Nichols RDMS Attending: ? Marcus Rush, Michelle Referred By: ? BOBBY Rush Service(s) Provided [facility] - Ultrasound - Transvaginal - [phone] ? [id number] Indications Reason for exam and clinical history: [...] Final 10/04/2011 04:08 pm) Patient Info ID: [id number] : [birth year] (46 yrs ) Name: JESSICA GTZ Visit Date: 10/04 03:50 pm Performed By Performed By: Lay Nichols RDMS Attending: Marcus [place] MD, Michelle Referred By: BOBBY DIAMOND MD Service(s) Provided [facility] - Ultrasound - Transvaginal - [phone] Indications Reason for exam and clinical history: [...] cyst documented in this encounter Care Teams Manager Of Sustainability Relationship Specialty Start Date End Date Monica Garcia MD PCP - General 07/18/10 03/05/12 [address] [place] [address] documented as of this encounter
--- OUTSIDE RECORDS SUMMARY | 2022-06-14 11:16 | XMS_ITS | Encounter Summary ---
:1965 [place] [address] Care Team Providers Name Role Phone Monica Garcia MD Primary Care Provider Encounter Details Date Type Department Care Team Description 07/25/2010 Orders Only Lab [facility] Ferdinand Michael Jr., MD [facility] Victor Manuel cifuentes [place] [address] [place] [address] [phone] (Wo rk) Social History Tobacco Use Types Packs/Day Years Used Date Never Assessed Sex Assigned at Date Recorded Female 01/29/2022 12:45 PM EDT documented as of this encounter Plan of Treatment Upcoming Encounters Date Type Specialty Care Team Description 07/13/2022 Appointment Radiology Maile Hinojosa MD [facility] ENDOCRINOLOGY [place], [place] [address] (Wo rk) 07/13/2022 Office Visit Endocrinology Maile Hinojosa MD [facility] ENDOCRINOLOGY [place], [place] [address] (Wo rk) 07/25/2022 Office Visit Pulmonology Tong Norman MD [facility] Pulmonary Medici [place], [place] [address] (Wo rk) documented as of this encounter Procedures Procedure Name Priority Date/Time Associated Diagnosis Comme nts URINE CULTURE Routine 07/25/2010 5:00 PM Results for this EST procedure are i n the results section . documented in this encounter Results URINE CULTURE (07/25/2010 5:00 PM EST) [facility] Method Time Signature Urine Culture CERNER ? Patient Name: JESSICA GTZ ? Ordered By: FERDINAND MICHAEL JR [facility] ? MR#: [id number] ?LOC: ??5B ? /Sex: ??1965 (44 years), [...] Organization Address City/State/ZIP Code Phon e Number [place] [phone] H[address]PITAL LAB[address]ORY [address] [facility] documented in this encounter Visit Diagnoses Not on filedocumented in this encounter Care Teams Optical Mechanic Relationship Specialty Start Date End Date Monica Garcia MD PCP - General 07/18/10 03/05/12 [address] [place] [address] documented as of this encounter
--- OUTSIDE RECORDS SUMMARY | 2022-06-14 11:16 | XMS_ITS | Encounter Summary ---
:1965 Author Organization [place] [address] Care Team Providers Name Role Phone Monica Garcia MD Primary Care Provider Reason for Visit Reason Comments Nephrolithiasis Encounter Details Date Type Department Care Team Description 01/08/2012 Follow-Up Urology at [facility], DR ESPINO Nephrolithiasis (Primary [facility] Ferdinand Michael Jr., MD [facility] [place] [address] Dx) [place] [id number] Social History Tobacco Use Types Packs/Day Years [...] Hinojosa MD [facility] ENDOCRINOLOGY [place], [place] [address] (Rahul ascencio) 07/13/2022 Office Visit Endocrinology Maile Hinojosa MD [facility] DR MARMOLEJO [place], [place] [address] (Rahul ascencio) 07/25/2022 Office Visit Pulmonology Tong Norman MD [facility] Pulmonary Medici [place], [place] [address] (Rahul ascencio) documented as of this encounter Results US retroperitoneal complete (07/08/2012 3:49 PM EST) Anatomical Region Laterality Modality Abdomen Ultrasound Specimen (Source) Anatomical Collection Method Collection Time Re ceived Time Location / / Volume Laterality 07/08/2012 3:49 PM EST Narrative 07/08/2012 5:17 PM EST ? Renal ? (Signed Final 07/08/2012 05 :16 pm) Patient Info ID: ? [id number] ? : [birth year] (46 yrs) Name: ? JESSICAKATIE GTZ ? Visit Date: 07/08/2012 03:45 pm Performed By Performed By: ?Shane Burciaga RDMS Attending: ? Noman GILL, Rose Narayan Referred By: ? FERDINAND MICHAEL MD Service(s) Provided URETRO - Retroperitoneal Complete - 002 [id number] ? [id number] Indications History of kidney stones Right Kidney [...] Final 07/08/2012 05:16 pm) Patient Info ID: [id number] : [birth year] (46 yrs ) Name: JESSICA GTZ Visit Date: 07/08 03:45 pm Performed By Performed By: Genie Burciaga RDMS Attending: Rose Tineo MD. Referred By: FERDINAND MICHAEL MD Service(s) Provided URETRO - Retroperitoneal Complete - 002 [id number] Indications History of kidney stones Right Kidney [...] to participat e in the care of JESSIAC GTZ. Please do not hesitate to call if you have any questions. Rose Tineo MD Electronically Signed Final Report 07/08 05:16 pm Ferdinand Michael Jr., MD IMG US GEN ORDERABLES documented in this encounter Visit Diagnoses Diagnosis Nephrolithiasis - Primary Calculus of kidney Nephrolithiasis Calculus of kidney documented in this encounter Care Teams Pantograph Ii Engraver Relationship Specialty Start Date End Date Monica Garcia MD PCP - General 07/18/10 03/05/12 [address] [place] [address] documented as of this encounter
--- OUTSIDE RECORDS SUMMARY | 2022-06-14 11:16 | XMS_ITS | Encounter Summary ---
:1965 Author Organization [facility] [place] [address] Care Team Providers Name Role Phone Monica Garcia MD Primary Care Provider Encounter Details Date Type Department Care Team Description 02/13/2011 Hospital Encounter Laboratory Monica Garcia, [facility] [place] [address] [address] [place], [place] [address] (Wo rk) Social History Tobacco [...] 0 08/24/2010 07/25/2011 mcg nasal spray Evening Seney Oil 500 0 08/24/2010 01/24/2015 mg Cap [...] Hinojosa MD [facility] ENDOCRINOLOGY [place], [place] [address] (Wo rk) 07/13/2022 Office Visit Endocrinology Maile Hinojosa MD [facility] ENDOCRINOLOGY [place], [place] [address] (Wo rk) 07/25/2022 Office Visit Pulmonology Tong Norman MD [facility] Pulmonary Medici [place], [place] [address] (Wo rk) documented as of this encounter Visit Diagnoses Not on filedocumented in this encounter Care Teams Delivery Lead Relationship Specialty Start Date End Date Monica Garcia MD PCP - General 07/18/10 03/05/12 [address] [place] [address] documented as of this encounter
--- OUTSIDE RECORDS SUMMARY | 2022-06-14 11:16 | XMS_ITS | Encounter Summary ---
:1965 Author Organization [facility] Address [facility] [address] [place] [address] Care Team Providers Name Role Phone Monica Garcia MD Primary Care Provider Reason for Visit Reason Comments Gynecologic Exam Encounter Details Date Type Department Care Team Description 12/07/2010 Office Visit Obstetrics and Bobby Diamond Routine check-up; Gynecology at [facility] MD Victor Manuel Perimenopause [address] [place] [address] OBSTETRICS & [phone] GYNECOLOGY [place], [place] 0[address] (Wo rk) Social History Tobacco [...] [place]-menopausal female who presents for her annual CREDIT CHECKER exam. She continues to use Climara-Pro and [...] Hinojosa MD [facility] ENDOCRINOLOGY [place], [place] [address] (Wo rk) 07/13/2022 Office Visit Endocrinology Maile Hinojosa MD [facility] ENDOCRINOLOGY [place], [place] [address] (Wo rk) 07/25/2022 Office Visit Pulmonology Tong Norman MD [facility] Pulmonary Medici [place], [place] [address] (Wo rk) documented as of this encounter Visit Diagnoses Diagnosis Routine check-up Routine general medical examination at a health care facility Perimenopause Symptomatic menopausal or female climact [place] documented in this encounter Care Teams Insert Operator Relationship Specialty Start Date End Date Monica Garcia MD PCP - General 07/18/10 03/05/12 [address] [place] [address] documented as of this encounter
--- OUTSIDE RECORDS SUMMARY | 2022-06-14 11:16 | XMS_ITS | Encounter Summary ---
:1965 Author Organization [facility] [place] [address] Care Team Providers Name Role Phone Monica Garcia MD Primary Care Provider Encounter Details Date Type Department Care Team Description 07/15/2011 Orders Only Urology at [facility] Ilya Bermudez, Nephrolithiasis (Primary [facility] SACHA Zuniga Dx) [place], [place] CENTER [address] UROLOGY DEPT. [phone] [place] [id number] Social History Tobacco Use Types Packs/Day Years [...] [facility] ENDOCRINOLOGY [place], [place] [address] (Wo rk) 07/13/2022 Office Visit Endocrinology Maile Hinojosa MD [facility] ENDOCRINOLOGY [place], [place] [address] (Wo rk) 07/25/2022 Office Visit Pulmonology Tong Norman MD [facility] Pulmonary Medici ne [place], [place] [address] (Wo rk) documented as of this encounter Visit Diagnoses Diagnosis Nephrolithiasis - Primary Calculus of kidney documented in this encounter Care Teams Broomcorn Sorter Relationship Specialty Start Date End Date Monica Garcia MD PCP - General 07/18/10 03/05/12 [address] [place] [address] documented as of this encounter
--- OUTSIDE RECORDS SUMMARY | 2022-06-14 11:16 | XMS_ITS | Encounter Summary ---
:1965 Author Organization [facility] [place] [address] Care Team Providers Name Role Phone Monica Garcia MD Primary Care Provider Encounter Details Date Type Department Care Team Description 12/07/2010 Hospital Encounter Obstetrics and Bobby Diamond, Gynecology at [facility] [place] [address] OBSTETRICS & [phone] GYNECOLOGY [place], [place] 0[address] (Wo rk) Social History Tobacco [...] 0 08/24/2010 07/25/2011 mcg nasal spray Evening [place] Oil 500 0 08/24/2010 01/24/2015 mg Cap [...] Maile Hinojosa MD [facility] ENDOCRINOLOGY [place], [place] [address] (Wo rk) 07/13/2022 Office Visit Endocrinology Maile Hinojosa MD [facility] ENDOCRINOLOGY [place], [place] [address] (Wo rk) 07/25/2022 Office Visit Pulmonology Tong Norman MD [facility] Pulmonary Medici [place], [place] [address] (Wo rk) documented as of this encounter Visit Diagnoses Not on filedocumented in this encounter Care Teams Supplier Quality Specialist Relationship Specialty Start Date End Date Monica Garcia MD PCP - General 07/18/10 03/05/12 [address] [place] [address] documented as of this encounter
--- OUTSIDE RECORDS SUMMARY | 2022-06-14 11:16 | XMS_ITS | Encounter Summary ---
:1965 Author Organization [facility] [place] [address] Care Team Providers Name Role Phone Monica Garcia MD Primary Care Provider Encounter Details Date Type Department Care Team Description 07/09/2011 Hospital Encounter Ultrasound at [facility] [place] [address] Social History Tobacco Use Types Packs/Day [...] 0 08/24/2010 07/25/2011 mcg nasal spray Evening [place] Oil 500 0 08/24/2010 01/24/2015 mg Cap [...] Hinojosa MD [facility] ENDOCRINOLOGY [place], [place] [address] (Wo rk) 07/13/2022 Office Visit Endocrinology Maile Hinojosa MD [facility] ER DR MARMOLEJO [place], [place] [address] (Wo rk) 07/25/2022 Office Visit Pulmonology Tong Norman MD [facility] er Pulmonary Medici ne [place], [place] [address] (Wo rk) documented as of [...] 01 :47 pm) Patient Info ID: ? [id number] ? : [birth year] (45 yrs) Name: ? JESSICA GTZ ? Visit Date: 07/09/2011 01:28 pm Performed By Performed By: ?Daphne Menjivar RDMS Associate: ? Luciano GILL, Sumanth Ruiz Attending: ? Luna GILL, Genie Ruiz Referred By: ? CIERA ARMENDARIZ Accession#: ?[id number] Service(s) Provided URETRO - Retroperitoneal Complete - 002 [id number] ? [id number] Indications H/o nephrolithiasis, assess for new sto [...] Final 07/09/2011 01:47 pm) Patient Info ID: [id number] : [birth year] (45 yrs ) Name: JESSICA GTZ Visit Date: 07/09 01:28 pm Performed By Performed By: Daphne Menjivar RDMS Associate: Luciano GILL, Sumanth Beltran Attending: Genie Carrasco MD Referred By: CIERA DOMENICOJAS [facility] Service(s) Provided URETRO - Retroperitoneal Complete - 002 [id number] Indications H/o nephrolithiasis, assess for new sto [...] kidney documented in this encounter Care Teams Assembly Lead Person Relationship Specialty Start Date End Date Monica Garcia MD PCP - General 07/18/10 03/05/12 [address] [place] [address] documented as of this encounter
--- OUTSIDE RECORDS SUMMARY | 2022-06-14 11:16 | XMS_ITS | Encounter Summary ---
:1965 Author Organization [facility] [address] Care Team Providers Name Role Phone Monica Garcia MD Primary Care Provider Reason for Visit Reason Comments Follow-up Encounter Details Date Type Department Care Team Description 07/09/2011 Follow-Up Urology at [facility], DR ESPINO Nephrolithiasis (Primary [facility] Nadia Stapleton, [facility] UROLOGY DEPT. [place] [id number] Dx) [place] [address] Social History Tobacco Use Types Packs/Day Years [...] in this encounter Progress Notes Nadia Stapleton, [facility] - 07/09/2011 2:20 PM EST Chief Complaint: [...] Maile Hinojosa MD [facility] DR MARMOLE[address] [place], [place] [address] (Rahul ascencio) 07/13/2022 Office Visit Endocrinology Maile Hinojosa MD [facility] DR MARMOLE[address] [place], [place] [address] (Rahul ascencio) 07/25/2022 Office Visit Pulmonology Tong Norman MD [facility] Pulmonary Medici ne [place], [place] [address] (Rahul ascencio) documented as of this encounter Results US retroperitoneal complete (01/08/2012 4:31 PM EDT) Anatomical Region Laterality Modality Abdomen Ultrasound Specimen (Source) Anatomical Collection Method Collection Time Re ceived Time Location / / Volume Laterality 01/08/2012 4:31 PM EDT Narrative 01/08/2012 4:59 PM EDT ? Renal ? (Signed Final 01/08/2012 04 :58 pm) Patient Info ID: ? [id number] ? : [birth year] (46 yrs) Name: ? JESSIAC GTZ ? Visit Date: 01/08/2012 04:29 pm Performed By Performed By: ?Akash Muse RDMS Attending: ? Veronica GILL, Weston Maloney Referred By: ? FERDINAND MICHAEL MD Service(s) Provided URETRO - Retroperitoneal Complete - 002 [id number] ? [id number] Indications Nephrolithiasis Right Kidney Size (cm) ?L: [...] Final 01/08/2012 04:58 pm) Patient Info ID: [id number] : [birth year] (46 yrs ) Name: JESSICA GTZ Visit Date: 01/07 04:29 pm Performed By Performed By: Akash Muse RDMS Attending: Weston [place] MD. Referred By: FERDINAND MICHAEL MD Service(s) Provided URETRO - Retroperitoneal Complete - 002 [id number] Indications Nephrolithiasis Right Kidney Size (cm) L: [...] kidney documented in this encounter Care Teams Director Of Knowledge Management Relationship Specialty Start Date End Date Monica Garcia MD PCP - General 07/18/10 03/05/12 [address] [place] [address] documented as of this encounter
--- OUTSIDE RECORDS SUMMARY | 2022-06-14 11:16 | XMS_ITS | Encounter Summary ---
:1965 Author Organization [facility] [place] [address] Care Team Providers Name Role Phone None Primary Care Provider Unavailable Encounter Details Date Type Department Care Team Description 07/08/2012 Hospital Encounter Ultrasound at [facility] [place] [address] Social History Tobacco Use Types Packs/Day [...] HCL (SERTRALINE 0 0 03/31/2013 ORAL) Evening [place] Oil 500 0 08/24/2010 01/24/2015 mg Cap [...] Hinojosa MD [facility] ENDOCRINOLOGY [place], [place] [address] (Wo rk) 07/13/2022 Office Visit Endocrinology Maile Hinojosa MD [facility] ENDOCRINOLOGY [place], [place] [address] (Wo rk) 07/25/2022 Office Visit Pulmonology Tong Norman MD [facility] Pulmonary Medici ne [place], [place] 0[address] (Wo rk) documented as of [...] 05 :16 pm) Patient Info ID: ? [id number] ? : [birth year] (46 yrs) Name: ? JESSICA GTZ ? Visit Date: 07/08/2012 03:45 pm Performed By Performed By: ?Shane Burciaga RDMS Attending: ? Noman GILL, Rose Narayan Referred By: ? FERDINAND MICHAEL MD Service(s) Provided URETRO - Retroperitoneal Complete - 002 [id number] ? [id number] Indications History of kidney stones Right Kidney [...] Final 07/08/2012 05:16 pm) Patient Info ID: [id number] : [birth year] (46 yrs ) Name: JESSICA GTZ Visit Date: 07/08 03:45 pm Performed By Performed By: Genie Burciaga RDMS Attending: Rose Tineo MD Referred By: FERDINAND MICHAEL MD Service(s) Provided URETRO - Retroperitoneal Complete - 002 [id number] Indications History of kidney stones Right Kidney [...] kidney documented in this encounter Care Teams Handstitching Machine Collar Feller Relationship Specialty Start Date End Date None PCP - General 03/06/12 01/05/13 None documented as of this encounter
--- OUTSIDE RECORDS SUMMARY | 2022-06-14 11:16 | XMS_ITS | Encounter Summary ---
:1965 Author Organization [facility] [place] [place] [address] Care Team Providers Name Role Phone Monica Garcia MD Primary Care Provider Encounter Details Date Type Department Care Team Description 12/07/2010 Orders Only Obstetrics and Gynecology Lucy Germain APRN at [facility] Victor Manuel [place] [address] [place] [address] [phone] (Wo rk) Social History Tobacco Use Types [...] Maile Hinojosa MD [facility] ENDOCRINOLOGY [place], [place] [address] (Wo rk) 07/13/2022 Office Visit Endocrinology Maile Hinojosa MD [facility] ENDOCRINOLOGY [place], [place] [address] (Wo rk) 07/25/2022 Office Visit Pulmonology Tong Norman MD [facility] Pulmonary Medici ne [place], [place] [address] (Wo rk) documented as of this encounter [...] on filedocumented in this encounter Care Teams Vice President Integrated Relationship Specialty Start Date End Date Monica Garcia MD PCP - General 07/18/10 03/05/12 [address] [place] [address] documented as of this encounter
--- OUTSIDE RECORDS SUMMARY | 2022-06-14 11:16 | XMS_ITS | Encounter Summary ---
:1965 Author Organization [facility] [place] [address] Care Team Providers Name Role Phone Monica Garcia MD Primary Care Provider Encounter Details Date Type Department Care Team Description 02/13/2011 Hospital Encounter XRay at [facility] Routine check-up 1 [facility] [place] [address] Social History Tobacco Use Types Packs/Day [...] 0 08/24/2010 07/25/2011 mcg nasal spray Evening [place] Oil 500 0 08/24/2010 01/24/2015 mg Cap [...] Radiology Maile Hinojosa MD [facility] ENDOCRINOLOGY [place], [place] [address] (Wo rk) 07/13/2022 Office Visit Endocrinology Maile Hinojosa MD [facility] ENDOCRINOLOGY [place], [place] [address] (Wo rk) 07/25/2022 Office Visit Pulmonology Tong Norman MD [facility] Pulmonary Medici ne [place], [place] [address] (Wo rk) documented as of [...] available through an interactive web-based interfa ce ([email or web address].uk/FRAX/) and can be used to estimate a [...] have access to CIS, please contact Radiology Journeyman Plumber at [phone] Saturday thru Saturday 8am-4pm. Procedure Note Sanket [...] This is available through an interactive web-based [employer] ce (http://www.shef.ac.uk/FRAX/) and can be used to [...] have access to CIS, please contact Radiology Journeyman Plumber at [phone] Saturday thru Saturday 8am-4pm. Bobby Diamond MD IMG DEXA ORDERABLES documented in this encounter Visit Diagnoses Diagnosis Routine check-up Routine general medical examination at a health care facility documented in this encounter Care Teams Sales Representative Aircraft Relationship Specialty Start Date End Date Monica Garcia MD PCP - General 07/18/10 03/05/12 [address] [place] [address] documented as of this encounter
--- OUTSIDE RECORDS SUMMARY | 2022-06-14 11:16 | XMS_ITS | Encounter Summary ---
:1965 Author Organization [facility] [place] [address] Care Team Providers Name Role Phone None Primary Care Provider Unavailable Reason for Visit Reason Comments Medication Refill Encounter Details Date Type Department Care Team Description 06/24/2012 Refill Obstetrics and Gynecology at Ramses Boyce MD [facility] Victor Manuel cifuentes OBSTETRICS & [place] [address] [place] [address] [phone] Social History Tobacco Use Types Packs/Day Years [...] MD [facility] ER ENDOCRINOLOGY [place], [place] [address] (Wo rk) 07/13/2022 Office Visit Endocrinology Maile Hinojosa MD [facility] ER ENDOCRINOLOGY [place], [place] [address] (Wo rk) 07/25/2022 Office Visit Pulmonology Tong Norman MD [facility] er Pulmonary Medici ne [place], [place] [address] (Wo rk) documented as of this encounter Visit Diagnoses Not on filedocumented in this encounter Care Teams Butcher Apprentice Relationship Specialty Start Date End Date None PCP - General 03/06/12 01/05/13 None documented as of this encounter
--- OUTSIDE RECORDS SUMMARY | 2022-06-14 11:18 | XMS_ITS | Encounter Summary ---
:1965 Author Organization [facility] Address [address] [place] [address] Care Team Providers Name Role Phone Unavailable Primary Care Provider Unavailable Encounter Details Date Type Department Care Team Description 07/10/2000 Before PRISM [facility] - Kristal Carroll, Converted Visit Maple conversion AUTOMATION AND CONTROLS INSTRUCTOR (Maple) [address] [facility] [address] [place] [address] [place], [place] [phone] (Wo rk) Social History Tobacco Use Types [...] LAB Reports generated via electronic interface contain panad ginal data; however they are lacking the format of the original re port. Caution should be taken when reading/interpreting unfo rmatted reports. Name: ? JESSICA GTZ WRN ? Accession #: ? [id number] : ? 1965 (Age: 34) ??F ?Collect Date: ? 06/26 Location: ? [facility] ? Receive Date : ? 07/11/2000 Provider: ?KRISTAL CARROLL AUTOMATION AND CONTROLS INSTRUCTOR Copy to: ? Specimen/Source: ?ThinPrep Pap Test, Cervix/ Endocervix Last Menstrual Period: ? Hormonal/Contraceptive Status: ? Depo-Provera ? SPECIMEN ADEQUACY ? Satisfactory for evaluation. GENERAL CATEGORIZATION ? Within Normal Limits ? Document reviewed and electronically signed by: ? AVI Ackerman(ASCP) ? Report Date: ??07/19/2000 13:38 End of Report Specimen Performing Organization Address City/State/ZIP Code Phon e Number [facility] [address] [place] [address] SERVICES [facility] [address] [place] [address] documented in this encounter Visit Diagnoses Not on filedocumented in this encounter
--- OUTSIDE RECORDS SUMMARY | 2022-06-14 11:18 | XMS_ITS | Encounter Summary ---
:1965 Author Organization [facility] Address [address] [place] [address] Care Team Providers Name Role Phone Unavailable Primary Care Provider Unavailable Encounter Details Date Type Department Care Team Description 12/11/2004 Results Only [facility] - Tara Luong od, Kristal Estrada, COLD STORAGE SUPERVISOR [facility] [address] [place] [phone] (Wo rk) Social History Tobacco Use Types [...] Date : ? 12/13/2004 Provider: ?KRISTAL GORDON COLD STORAGE SUPERVISOR Copy to: ? Specimen/Source: ?Conventional Pap Test, [...] Organization Address City/State/ZIP Code Phon e Number [facility] [address] [place] [address] SERVICES [facility] [address] [place] [address] documented in this encounter Visit Diagnoses Not on filedocumented in this encounter
--- OUTSIDE RECORDS SUMMARY | 2022-06-14 11:18 | XMS_ITS | Clinical Summary ---
:1965 Author Organization [facility] Address [address] [place] [address] Care Team Providers Name Role Phone Unknown, Provider Primary Care Provider Social History Tobacco Use Types Packs/Day Years Used Date Never Assessed Sex Assigned at Date Recorded Not on file Plan of Treatment Not on file Care Teams Hospital Manager Relationship Specialty Start Date End Date Unknown, Provider, PCP - General 07/04/15
--- OUTSIDE RECORDS SUMMARY | 2022-06-14 11:18 | XMS_ITS | Encounter Summary ---
:1965 Author Organization [facility] Address [address] [place] [address] Care Team Providers Name Role Phone Unavailable Primary Care Provider Unavailable Encounter Details Date Type Department Care Team Description 08/24/2003 Before PRISM [facility] - Kristal Carroll, Converted Visit Maple conversion OVER THE HORIZON TARGETING SUPERVISOR (Maple) [address] [facility] [address] [place] [address] [place], [place] [phone] (Wo rk) Social History Tobacco Use Types [...] Date : ? 08/27/2003 Provider: ?KRISTAL CARROLL OVER THE HORIZON TARGETING SUPERVISOR Copy to: ? Specimen/Source: ?Conventional Pap [...] Organization Address City/State/ZIP Code Phon e Number [facility] [address] [place] [address] SERVICES [facility] [address] [place] [address] documented in this encounter Visit Diagnoses Not on filedocumented in this encounter
--- OUTSIDE RECORDS SUMMARY | 2022-06-14 11:18 | XMS_ITS | Encounter Summary ---
:1965 Author Organization [facility] Address [address] [place] [address] Care Team Providers Name Role Phone Unavailable Primary Care Provider Unavailable Encounter Details Date Type Department Care Team Description 07/14/2002 Before PRISM [facility] - Kristal Carroll, Converted Visit Maple conversion HEAD OF VISUAL MERCHANDISING (Maple) [address] [facility] [address] [place] [address] [place], [place] [phone] (Wo rk) Social History Tobacco Use Types [...] JESSICA GTZ WRN ? Accession #: ? [id number] : ? 1965 (Age: 36) ??F ?Collect Date: ? 06/26 Location: ? [facility] ? Receive Date : ? 07/15/2002 Provider: ?KRISTAL CARROLL HEAD OF VISUAL MERCHANDISING Copy to: ? Specimen/Source: ?Conventional Pap Test, [...] Address City/State/ZIP Code Phon e Number [facility] [address] [place] [address] SERVICES [facility] [address] [place] [address] documented in this encounter Visit Diagnoses Not on filedocumented in this encounter
--- OUTSIDE RECORDS SUMMARY | 2022-06-14 11:18 | XMS_ITS | Encounter Summary ---
:1965 Author Organization [facility] Address [address] [place] [address] Care Team Providers Name Role Phone Unknown, Provider Primary Care Provider Encounter Details Date Type Department Care Team Description 08/15/2015 Results Only [facility]- [facility] Suzie Shannon NP [phone] [facility] [address] [place], [place] [phone] (Wo rk) Social History Tobacco Use Types [...] (08/15/2015 0:00 EST) Pathology Report: CYTOPATHOLOGY REPORT [facility] Reports generated via electronic interface contain panda ginal data; SERVICES however they are lacking the format of the original re port. Caution should be taken when reading/interpreting unfo rmatted reports. Name: ? JESSICA GTZ ? Accession #: ? [id number] : ? 1965 (Age: 50) ??F ?Collect Date: ? 07/27 Location: ? [facility] ? Receive Date : ? 08/17/2015 Provider: ?SUZIE SHANNON CANDLE WICKER Copy to: ?AVERY EARYL TELEGRAPH MESSENGER ? Specimen/Source: ? Pap Test, Cervix/Endocervix, ThinPrep [...] Organization Address City/State/ZIP Code Phon e Number [facility] [address] [place] [address] SERVICES documented in this encounter Visit Diagnoses Not on filedocumented in this encounter Care Teams Pan Operator Relationship Specialty Start Date End Date Unknown, Provider, PCP - General 07/04/15 documented as of this encounter
--- OUTSIDE RECORDS SUMMARY | 2022-06-14 11:18 | XMS_ITS | Encounter Summary ---
:1965 Author Organization [facility] Address [address] [place] [address] Care Team Providers Name Role Phone Unknown, Provider Primary Care Provider Encounter Details Date Type Department Care Team Description 01/05/2022 Lab Requisition [facility] Outr Resulting Lab, Pathology & Laboratory Provider [facility] [address] [place], [place] [id number] Social History Tobacco Use Types Packs/Day Years [...] 15:51 EDT) Calcium, Urine 10.0 See Note [facility] Comment: mg/dL [facility] NOTE: SERVICES Reference range not established Calcium, Urine 24 330 (H)Comment: 100 - 300 [facility] hr Reference range mg/24hrs [facility] assumes a normal SERVICES daily intake of calcium between 600 - 800 mg/day. Urine Volume 3,300 mL [facility] SERVICES Urine Collection 24.0 Hours [facility] MEDICAL [facility]ENTER LABORATORY SERVICES Specimen Urine - 24 hour urine specimen (specimen ) Performing Organization Address City/State/ZIP Code Phon e Number [facility] [address] [place] [address] SERVICES documented in this encounter Visit Diagnoses Not on filedocumented in this encounter Care Teams Balance Wheel Motion Inspector Relationship Specialty Start Date End Date Unknown, Provider, PCP - General 07/04/15 documented as of this encounter
--- OUTSIDE RECORDS SUMMARY | 2022-06-14 11:18 | XMS_ITS | Encounter Summary ---
:1965 Author Organization [facility] Address [address] [place] [address] Care Team Providers Name Role Phone Unavailable Primary Care Provider Unavailable Encounter Details Date Type Department Care Team Description 03/29/2008 Before PRISM Converted [facility] - Isa Cotto, Visit (Tara) Tara rose MD [address] [place] [address] Social History Tobacco Use Types Packs/Day Years [...] ALL EN ? LAB Reports generated via [facility] interface contain original data; ? however they are lacking the format of the original report. ? Caution should be taken when reading/interpreting unformatted reports. ? Name: ? JESSICA GTZ ? Accession #: ? [id number] ? : ? 1965 (Age: 42) ??F [...] Address City/State/ZIP Code Phon e Number [facility] [address] [place] [address] SERVICES [facility] [address] [place] [address] documented in this encounter Visit Diagnoses Not on filedocumented in this encounter
--- OUTSIDE RECORDS SUMMARY | 2022-06-14 11:18 | XMS_ITS | Encounter Summary ---
:1965 Author Organization [facility] Address [address] [place] [address] Care Team Providers Name Role Phone Unavailable Primary Care Provider Unavailable Encounter Details Date Type Department Care Team Description 01/15/2006 Results Only [facility] - Tara Luong od, Kristal Estrada, [employer]CHOLOGIST [facility] [address] [place] [phone] (Wo rk) Social History Tobacco Use Types [...] Date : ? 01/17/2006 Provider: ?KRISTAL GORDON [employer]YCH[employer]IST Copy to: ? Specimen/Source: ?Conventional Pap Test, [...] Organization Address City/State/ZIP Code Phon e Number [facility] [address] [place] [phone] SERVICES [facility] [address] [place] [address] documented in this encounter Visit Diagnoses Not on filedocumented in this encounter
== END ==
PROVIDERS: PCP Nurse Practitioner Family; Visit Provider Internal Medicine Pulmonary Disease
DX: R06.00 Dyspnea, unspecified (principal)
CPT/HCPCS: 71275

== ENCOUNTER 2022-07-30 08:57 | Outpatient (CLI) | payer BC, SELFPAY ==
--- NOTE | 2022-07-30 09:12 | W.CARDEVENT ---
Date of service: 07/30/22 Time of Service: 09:12 Cardiac Event Recorder Referring Provider:: Janet Davey Indications:: Tachycardia Cardiac Event Note: This is a 14-day cardiac event monitor Rhythm throughout was sinus with an average heart rate of 70. Minimum was 48, maximum 145 A total of 5 isolated premature ventricular contractions were recorded There were very rare atrial premature beats, a total of 66 in 12 days There was no atrial fibrillation, no supra tachycardia, no high-grade AV block, no pauses greater than 3 seconds Patient's symptoms were reported all of which corresponded to sinus rhythm without dysrhythmia
== END 2022-07-30 08:58 | disposition home or self-care (01) ==
LOC: CARDOPNVT 08:57
PROVIDERS: PCP Nurse Practitioner Family; Visit Provider Internal Medicine Cardiovascular Disease
DX: I49.3 Ventricular premature depolarization (principal)
CPT/HCPCS: 93248

== ENCOUNTER 2022-11-29 10:20 | Emergency (ER) | payer BC, SELFPAY ==
[2022-11-29 10:23] VITALS: BP 116/58; PULSE 74; RESP 18; TEMP 36.9; O2SAT 100
--- NOTE | 2022-11-29 10:30 | DI.CT_ITS ---
Exam(s) CT ABDOMEN PELVIS WO EXAM: CT ABDOMEN PELVIS WO CLINICAL HISTORY: R Falnk pain. TECHNIQUE: Imaging Protocol: Axial computed tomography images with coronal and sagittal reformatted images were created and reviewed CONTRAST MATERIAL: Intravenous: none Oral: None COMPARISON: CT CT CHEST PE CTA from 06/14/2022 FINDINGS: VISUALIZED LUNG BASES: No nodules nor pleural effusions evident. ABDOMEN: There is no ascites. LIVER: There are no obvious focal hepatic lesions evident of this noninfused study. The diameter of the intrahepatic IVC is prominent, measuring 3.4 cm. Also mild prominence of the intrahepatic veins noted. Partially visualized heart does not appear grossly enlarged and there is no pericardial effus ion. GALLBLADDER/BILIARY: Gallbladder contracted. CBD is not dilated. PANCREAS: No evidence of pancreatic mass nor dilatation of the pancreatic duct. SPLEEN: Spleen is not enlarged. No obvious intrasplenic lesions. ADRENALS: There are no significant adrenal masses. KIDNEYS:There is a punctate 2 millimeter calculus in the inferior pole calyx of the left kidney. No other focal left kidney findings and no hydronephrosis. Right kidney contains no obvious radiopaque calculi and no hydronephrosis. No solid renal masses nor cysts evident. Ureters are not significant ly dilated. ABDOMINAL AORTA: Abdominal aorta is not enlarged. LYMPH NODES: There is no retroperitoneal nor paraaortic adenopathy. ABDOMINAL WALL: No evidence of significant anterior abdominal wall nor inguinal hernia. GI: There is no evidence of bowel obstruction, free air, nor abscess. Punctate radiodense material is noted in the bowel lumen which is probably ingested material. PELVIS: LYMPH NODES: There is no intrapelvic nor inguinal adenopathy. GI: No evidence of appendicitis.Abundant fecal material in the colon. No obvious diverticulitis. URINARY BLADDER: Mildly distended. No radiopaque calculi. No masses. REPRODUCTIVE: There is an IUD in the endometrial canal of the anteverted uterus which appears to be i n satisfactory position. There are no obvious abnormal adnexal masses and no free fluid in the pelvi s. OSSEOUS: No significant osseous lesions. No fractures. IMPRESSION: 1. There is a small nonobstructive 2 millimeter calculus in left kidney inferior pole. No other kidn ey findings. No hydro or no hydroureter. 2. No bowel obstruction, air, nor abscess. No ascites. 3. There is an IUD which is in satisfactory position in the uterine endometrial canal. No abnormal a dnexal masses evident. RADIATION DOSE DELIVERED: 696.94mGy.cm Total DLP DATA REPOSITORY: All CT scans at this facility are submitted to the National Radiology Data Registry (NRDR) Dose Index Registry (DIR) with the [employer] (ACR). RADIATION OPTIMIZATION: All CT scans at this facility use at least one of these dose optimization te chniques: automated exposure control; mA and/or kV adjustment per patient size (includes targeted exa ms where dose is matched to clinical indication); or iterative reconstruction.
--- NOTE | 2022-11-29 10:46 | ED.GENADUL_ITS ---
Discharge Plan Disposition Patient Disposition: Home Discharge Details Clinical Impression: Abdominal pain, Constipation Primary Care Provider: Janet Davey ED Provider: Tiara Phipps Home Meds and New Rx's Prescriptions: Continued fexofenadine 180 mg tablet 180 mg PO DAILY ipratropium bromide intranasal HS sumatriptan succinate [Imitrex] 100 MG tablet 100 mg PO ONCE Rx Instructions: PRN clotrimazole-betamethasone [Lotrisone] 45 GM cream 45 gm Topical PRN montelukast [Singulair] 10 MG tablet 10 mg PO DAILY Rx Instructions: PRN seasonal albuterol sulfate [ProAir HFA] 8.5 GM HFA aerosol inhaler 2 puff Inhalation Q6H PRN Patient Comments: seasonal estradiol 1 EACH patch weekly 1 ea Transdermal . DIRECTED hydrocortisone valerate 15 GM cream 15 gm Topical BID budesonide-formoterol [Symbicort] 10.2 GM HFA aerosol inhaler 1 puff Inhalation BID azelastine-fluticasone [Dymista] 23 GM spray,non-aerosol 23 gm NS BID ondansetron HCl 4 mg tablet 4 mg PO Q8H (DME) BreatheRite MDI Spacer Spacer See Rx Instructions .Route Rx Instructions: As directed magnesium oxide 400 mg magnesium tablet 800 mg PO QHS galantamine 12 mg tablet 12 mg PO BID Qty: 180 3RF Rx Instructions: administer with AM and PM meals memantine 5 mg tablet See Rx Instructions .ROUTE .COMPLEX Qty: 180 3RF Dose Instruction: TAKE 1 TABLET BY MOUTH TWICE DAILY Rx Instructions: TAKE 1 TABLET BY MOUTH TWICE DAILY ibuprofen 600 mg tablet 600 mg PO Q6H PRN (Reason: Pain and inflammation) Qty: 60 0RF ondansetron 4 mg tablet,disintegrating 4 mg PO Q8H PRN (Reason: nausea and vomiting) Qty: 30 0RF oxycodone 5 mg tablet 5 mg PO Q6H PRNQty: 10 0RF Discharge Instructions Instructions: Constipation (ED), Abdominal Pain (ED) Additional Instructions: No evidence of kidney stones on the right side, he did have some constipation noted on CT exam. No evidence for bowel obstruction. Please return to the ER for any worsening pain, fever chills, nausea vomiting or any concerns. Follow up with primary care provider in 3-5 days. Return to ED sooner if any worsening or concerns. Increase oral fluids. Please take Tylenol or Ibuprofen with food every 4-6 hours as needed for pain and swelling. Referrals: Janet Davey [Primary Care Provider] - 3 days Discharge Data Discharge Date/Time-TO BE ENTERED AT DEPARTURE: 11/29/22 12:55 Medical Decision Making 57-year-old female presents with right flank pain which began prior to arrival. She does have a history of kidney stones are usually on the left. Denies any nausea vomiting or any other associated symptoms. CT abdomen pelvis without contrast ordered, 30 of Toradol and 4 of Zofran. Lab results show no leukocytosis, BUN/creatinine within normal limits, urinalysis shows no nitrites no blood no leukocytes. CT abdomen pelvis shows a nonobstructive 2 mm calculus in the left kidney inferior pole no other kidney findings. No bowel obstruction no abscess no ascites. No other evidence for patient's complaints other than moderate constip ation and stool. I discussed the results with patient who verbalized understanding. She does report she feels somewhat better and appears more comfortable than when she first arrived. Directed to follow-up with PCP discussed strict return instructions, verbalized understanding. This text was generated using [employer] dictation system, please disregard any oddities of phrase or misspellings. Medical Records Medical records reviewed: Yes I reviewed the patient's medical records. Lab Data Lab results reviewed: Yes I reviewed the patient's lab results. Labs: Laboratory Tests Range/Units 11/29/22 11/29/22 11/29/22 10:38 10:38 11:48 WBC (4.4-10.8) 10^3/uL 5.24 RBC (3.93-5.22) 10^6/uL 4.78 Hgb (11.2-15.7) g/dL 14.5 Hct (36.0-46.0) % 43.4 MCV (80-95) fL 91 MCH (27.0-33.0) pg 30.3 MCHC (32.0-36.0) % 33.4 RDW (11.7-14.6) % 13.2 Plt Count (130-400) 10^3/uL 220 MPV (8.0-11.0) fL 9.3 Immature Gran % 0.4 Neutrophils % 63.4 Lymphocytes % 25.2 Monocytes % 9.4 Eosinophils % 0.8 Basophils % 0.8 Nucleated RBC % (0.0-0.3) % 0.0 Absolute Neutrophils (1.2-6.7) 10^3/uL 3.33 Absolute Lymphocytes (1.2-3.4) 10^3/uL 1.32 Absolute Monocytes (0.1-0.8) 10^3/uL 0.49 Absolute Eosinophils (0.0-0.7) 10^3/uL 0.04 Absolute Basophils (0.0-0.2) 10^3/uL 0.04 Sodium (136-145) mmol/L 142 Potassium (3.5-5.1) mmol/L 3.5 Chloride (98-107) mmol/L 102 Carbon Dioxide (21.0-32.0) mmol/L 30.7 Anion Gap (3-11) mmol/L 9.3 BUN (7-18) mg/dL 16 Creatinine (0.55-1.02) mg/dL 1.0 Est GFR (CKD-EPI 2020) (mL/min/1.73m2) 64.90 Glucose (74-106) mg/dL 83 Calcium (8.5-10.1) mg/dL 9.6 Total Bilirubin (0.2-1.0) mg/dL 0.3 AST (15-37) U/L 27 ALT (14-59) U/L 38 Alkaline Phosphatase (46-116) U/L 71 Total Protein (6.4-8.2) g/dL 8.2 Albumin (3.4-5.0) g/dL 4.0 Urine Color (Yellow) Yellow Urine Clarity (Clear) Clear Urine pH (5-8) 8.5 H Ur Specific [place] (1.005-1.025) 1.015 Urine Protein (Negative) mg/dL Negative Urine Ketones (Negative) mg/dL Negative Urine Blood (Negative) Negative Urine Nitrite (Negative) Negative Urine Bilirubin (Negative) Negative Urine Urobilinogen (Up to 0.2) mg/dL 0.2 Ur Leukocyte Esterase (Negative) Negative Urine Glucose (Negative) mg/dL Negative HPI General Mode of arrival: wheelchair . Date/Time Provider Initiated Documentation: 11/29/22 10:32 . Limitations to Documentation: no limitations . Information obtained by: patient, RN notes reviewed and old records reviewed . HPI Narrative: 57-year-old female presents with right flank pain which began prior to arrival. She does have a history of kidney stones are usually on the left. Denies any nausea vomiting or any other associated symptoms. She does have a past medical history of asthma. She did not take any medications prior to arrival. She does appear quite uncomfortable upon arrival. Related Data Home Medications Medication Instructions Recorded Confirmed Imitrex 100 mg tablet (sumatriptan 100 mg PO ONCE 03/28/15 10/22/22 succinate) Lotrisone 1 %-0.05 % topical cream 45 gm topical PRN 03/28/15 10/22/22 (clotrimazole-betamethasone) ProAir HFA 90 mcg/actuation 2 puff inhalation Q6H PRN 03/28/15 10/22/22 aerosol inhaler (albuterol sulfate) Singulair 10 mg tablet 10 mg PO DAILY 03/28/15 10/22/22 (montelukast) estradiol 0.1 mg/24 hr weekly 1 ea transdermal . DIRECTED 03/28/15 10/22/22 transdermal patch azelastine-fluticasone 137 mcg-50 23 gm NS BID 11/11/17 10/22/22 mcg/spray nasal spray (Dymista) budesonide-formoterol HFA 160 1 puff inhalation BID 11/11/17 10/22/22 mcg-4.5 mcg/actuation aerosol inhaler (Symbicort) hydrocortisone valerate 0.2 % 15 gm topical BID 11/11/17 10/22/22 topical cream ibuprofen 600 mg tablet 600 mg PO Q6H PRN Pain and 08/11/21 10/22/22 inflammation #60 tabs inhalational spacing device 01/15/22 10/22/22 (BreatheRite MDI Spacer) magnesium oxide 800 mg PO QHS 01/15/22 10/22/22 ondansetron HCl 4 mg tablet 4 mg PO Q8H 01/15/22 10/22/22 fexofenadine 180 mg tablet 180 mg PO DAILY 04/02/22 10/22/22 ondansetron 4 mg disintegrating 4 mg PO Q8H PRN nausea and 05/16/22 10/22/22 tablet vomiting #30 tabs oxycodone 5 mg tablet 5 mg PO Q6H PRN #10 tabs 05/16/22 10/22/22 ipratropium bromide intranasal HS 10/22/22 10/22/22 galantamine 12 mg tablet 12 mg PO BID #180 tabs 11/13/22 memantine 5 mg tablet See Rx Instructions .Route 11/13/22 .COMPLEX #180 tabs Previous Rx's Medication Instructions Recorded ibuprofen 600 mg tablet 600 mg PO Q6H PRN Pain and 08/11/21 inflammation #60 tabs ondansetron 4 mg disintegrating 4 mg PO Q8H PRN nausea and 05/16/22 tablet vomiting #30 tabs oxycodone 5 mg tablet 5 mg PO Q6H PRN #10 tabs 05/16/22 galantamine 12 mg tablet 12 mg PO BID #180 tabs 11/13/22 memantine 5 mg tablet See Rx Instructions .Route 11/13/22 .COMPLEX #180 tabs Allergies Allergy/AdvReac Type Severity Reaction Status Date / Time latex Allergy Intermediate Skin Rash Unverified 10/22/22 13:33 animal,grass,smoke,tree Allergy Unknown Uncoded 10/22/22 13:33 pllen, molds contrast dye Allergy Unknown Unknown Uncoded 10/22/22 13:33 General Stated Complaint: FlankPain YANETH: 3 Review of Systems All systems reviewed & are unremarkable except as noted in HPI and below Genitourinary Genitourinary: Reports flank pain PFSH All Active Problems (Updated 11/29/22 @ 12:44 by Tiara Phipps NP) Abdominal pain (Acute) Constipation (Acute) Pain, foot (Acute) Corns and callosities (Acute) COVID-19 long hauler (Acute) Sore throat (Acute) Cough (Acute) COVID-19 virus infection (Acute) Hallux valgus (acquired), left foot (Acute) Screening for colorectal cancer (Chronic) 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) Allergic rhinitis (Chronic 11/04/13) Postnasal drip (Chronic 04/05/14) Mild cognitive impairment (Chronic) Allergic fungal sinusitis (Acute 07/20/13) Allergic rhinitis due to pollen (Chronic 08/08/15) Closed nondisplaced avulsion fracture of tuberosity of right calcaneus (Acute 06/09/18) Because of persistent symptoms and tenderness over the anterior talus i think repeat x-rays are indicated to rule out an osteochondral injury to the talus. These are performed today and appear normal. I inform the patient that it will take along time before she is asymptomatic. I recommend a trial of topricin to help with the discomfort. follow-up with me an needed. 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 Appears stated age. Normal body habitus. Patient appears quite uncomfortable is curled up in a ball complaining of right flank pain. Head: Normocephalic, no trauma. Eyes: Pupils PERRL, Red reflex noted, EOM's intact. Eyelids symmetrical without lesions, discharge, or swelling. ENT: Bilateral TM's WNL, External ear normal to inspection, no mastoid TTP, swelling, or erythema, Nasal turbinates WNL, no nasal discharge. Normal dentition, Posterior pharynx WNL, no exudate. Chest: RRR, Normal S1, S2, distal pulses intact. Resp: Lungs clear to auscultation bilaterally, no wheezes, rales, or rhonchi. Abdomen: Soft, non-distended, Normoactive bowel sounds all 4 quads. Musculoskeletal: Normal gait, 5/5 strength to all four extremities. Skin: No suspicious rashes or lesions. Capillary refill less than 2 sec. Neurologic: Cranial nerves II-XII intact. Alert and oriented x 3. Motor: No deficits noted. Sensory: Intact bilaterally all 4 extremities. Reflexes: DTR's intact bilaterally.. Hematologic/Lymphatic: No ecchymosis, no lymphadenopathy. Course Vital Signs Vital signs: Vital Signs Temperature 36.9 C 11/29/22 10:23 Pulse 74 11/29/22 10:23 Respiratory Rate 18 11/29/22 10:23 Blood Pressure 116/58 L 11/29/22 10:23 Pulse Oximetry 100 11/29/22 10:23 Temperature 36.9 C 11/29/22 10:23 Temperature Source Oral 11/29/22 10:23 Pulse 74 11/29/22 10:23 Respiratory Rate 18 11/29/22 10:23 Blood Pressure 116/58 L 11/29/22 10:23 Blood Pressure Position Sitting 11/29/22 10:23 Pulse Oximetry 100 11/29/22 10:23 Oxygen Delivery Method Room Air 11/29/22 10:23 Oxygen Flow Rate 0 11/29/22 10:23 Pain Level 9 11/29/22 10:23
[2022-11-29] MEDS: Ondansetron 4 MG/2 ML VIAL IVP (10:50)
[2022-11-29] MEDS: Ketorolac 30 MG/ML VIAL IVP (10:50)
[2022-11-29] MEDS: Normal Saline 1,000 ML 1000 ML IV (10:51)
[2022-11-29 10:58] LABS: Abs Immature Grans 0.02 10^3/uL (0.0-0.06); Absolute Basophil Count 0.04 10^3/uL (0.0-0.2); Absolute Eosinophil Count 0.04 10^3/uL (0.0-0.7); Absolute Lymphocyte Count 1.32 10^3/uL (1.2-3.4); Absolute Monocyte Count 0.49 10^3/uL (0.1-0.8); Absolute Neutrophil Count 3.33 10^3/uL (1.2-6.7); Basophils % 0.8; Eosinophils % 0.8; HCT 43.4 % (36.0-46.0); HGB 14.5 g/dL (11.2-15.7); Immature Grans % 0.4; Lymphocytes % 25.2; MCH 30.3 pg (27.0-33.0); MCHC 33.4 % (32.0-36.0); MCV 91 fL (80-95); MPV 9.3 fL (8.0-11.0); Monocytes % 9.4; Neutrophils % 63.4; Platelet Count 220 10^3/uL (130-400); RBC 4.78 10^6/uL (3.93-5.22); RDW 13.2 % (11.7-14.6); RDW-SD 44.5 fL; WBC 5.24 10^3/uL (4.4-10.8)
[2022-11-29 11:14] LABS: ALT 38 U/L (14-59); AST 27 U/L (15-37); Alkaline Phosphatase 71 U/L (46-116); Anion Gap 9.3 mmol/L (3-11); BUN 16 mg/dL (7-18); Bilirubin, Total 0.3 mg/dL (0.2-1.0); CO2 30.7 mmol/L (21.0-32.0); Calcium 9.6 mg/dL (8.5-10.1); Chloride 102 mmol/L (98-107); Glucose 83 mg/dL (74-106); Potassium 3.5 mmol/L (3.5-5.1); Sodium 142 mmol/L (136-145); Total Protein 8.2 g/dL (6.4-8.2)
[2022-11-29 12:02] LABS: Bilirubin Negative (Negative); Blood Negative (Negative); Clarity Clear (Clear); Glucose Negative (Negative); Ketones Negative (Negative); Leukocyte Esterase Negative (Negative); Nitrite Negative (Negative); Specific Gravity 1.015 (1.005-1.025); Urobilinogen 0.2 mg/dL (Up to 0.2); pH 8.5 (5-8)
== END 2022-11-29 12:55 | disposition home or self-care (01) ==
PROVIDERS: Emergency Provider Registered Nurse Emergency; PCP Nurse Practitioner Family
DX: K59.00 Constipation, unspecified (principal); N20.0 Calculus of kidney
CPT/HCPCS: 80053; 96361; 96374; 96375; 99284; 74176; 81003; 85025; J1885; J2405

== ENCOUNTER 2022-12-14 18:07 | Emergency (ER) | payer BC, SELFPAY ==
--- NOTE | 2022-12-14 18:00 | RT.EKG_ITS ---
APPROVED REPORT Exam: Resting ECG Reason for Exam: dyspnea Patient Location: E HR:57 bpm ECG Measurements Heart Rate 57 AXIS GA 127 P 37 QRSd 93 QRS 25 QT 449 T 53 QTc 437 Conclusion Sinus bradycardia...rate< 60 Normal [place] Normal Electrocardiogram I have reviewed and interpreted ECG and agree with software generated interpretation.
--- NOTE | 2022-12-14 18:09 | W.ED.GENAD ---
Discharge Plan Disposition Patient Disposition: Home Condition: Good Discharge Details Clinical Impression: BURRIS (dyspnea on exertion) Primary Care Provider: Janet Davey ED Provider: Salvador Loera Meds and New Rx's Prescriptions: Continued fexofenadine 180 mg tablet 180 mg PO DAILY ipratropium bromide intranasal DAILY AM hydroxyzine HCl 25 mg tablet 25 mg PO QHS PRN hydrochlorothiazide 12.5 mg capsule 12.5 mg PO DAILY sumatriptan succinate [Imitrex] 100 MG tablet 100 mg PO ONCE Rx Instructions: PRN clotrimazole-betamethasone [Lotrisone] 45 GM cream 45 gm Topical PRN montelukast [Singulair] 10 MG tablet 10 mg PO DAILY Rx Instructions: PRN seasonal albuterol sulfate [ProAir HFA] 8.5 GM HFA aerosol inhaler 2 puff Inhalation Q6H PRN Patient Comments: seasonal estradiol 1 EACH patch weekly 1 ea Transdermal . DIRECTED hydrocortisone valerate 15 GM cream 15 gm Topical BID azelastine-fluticasone [Dymista] 23 GM spray,non-aerosol 23 gm NS BID (DME) BreatheRite MDI Spacer Spacer See Rx Instructions .Route Rx Instructions: As directed magnesium oxide 400 mg magnesium tablet 800 mg PO QHS galantamine 12 mg tablet 12 mg PO BID Qty: 180 3RF Rx Instructions: administer with AM and PM meals memantine 5 mg tablet See Rx Instructions .ROUTE .COMPLEX Qty: 180 3RF Dose Instruction: TAKE 1 TABLET BY MOUTH TWICE DAILY Rx Instructions: TAKE 1 TABLET BY MOUTH TWICE DAILY (DME) Oxygen Tank See Rx Instructions .Route Rx Instructions: 1 unit as directed. Use 2-4L NC with conserving device. budesonide-formoterol [Symbicort] 160-4.5 mcg/actuation HFA aerosol inhaler 2 puff Inhalation BID ibuprofen 600 mg tablet 600 mg PO Q6H PRN (Reason: Pain and inflammation) Qty: 60 0RF Discharge Instructions Instructions: Dyspnea (ED) Additional Instructions: You were seen in the ED for increased shortness of breath with exertion. Your vital signs, exam, EKG, chest x-ray, laboratory studies are all reassuring. Please follow-up with your date pitter at [facility]. Return to ED for fever, increasing shortness of breath especially at rest, chest pain, other concerns. Medical Decision Making Patient presents to ED with complaint of increased dyspnea with exertion. She is also reporting some increased chest discomfort since yesterday. At rest her vital signs and pulse ox are normal here. Her EKG from triage is sinus bradycardia with no ST changes. Her lungs are clear. She does not appear to be in any type of distress. Will obtain chest x-ray, laboratory studies including troponin and D-dimer. Patient's work-up is unremarkable. Laboratory studies essentially normal with just mild hypokalemia. Troponin and D-dimer negative. Chest x-ray per my review with no acute pulmonary process. Patient unchanged otherwise. Will discharge to follow-up with date pitter at [facility]. Return precautions provided. Medical Records Medical records reviewed: Yes I reviewed the patient's medical records. Medical records narrative: pulmonary note from the ECG Data Attestation: I personally reviewed and interpreted this ECG (s) as follows: Prior ECG tracings: not available for review Interpretation: see EKG HPI General Mode of arrival: ambulatory. Date/Time Provider Initiated Documentation: 12/14/22 18:09. Limitations to Documentation: no limitations. Information obtained by: patient. HPI Narrative: Patient presents to ED with complaint of dyspnea on exertion, more so than typical. Patient reports problems with since having COVID 1 year ago. She is followed by [facility] pulmonology for long COVID. She does have a history of asthma. She states for the last few days she feels like she is having increased shortness of breath with exertion. She is also reporting some increased chest discomfort and cough since yesterday. She denies fever. She denies shortness of breath at rest. She denies any leg pain or leg swelling. She is reporting some desaturating into the low 80s with exertion. At rest she reports a normal pulse ox. Related Data Home Medications Medication Instructions Recorded Confirmed Imitrex 100 mg tablet (sumatriptan 100 mg PO ONCE 03/28/15 12/14/22 succinate) Lotrisone 1 %-0.05 % topical cream 45 gm topical PRN 03/28/15 12/14/22 (clotrimazole-betamethasone) ProAir HFA 90 mcg/actuation 2 puff inhalation Q6H PRN 03/28/15 12/14/22 aerosol inhaler (albuterol sulfate) Singulair 10 mg tablet 10 mg PO DAILY 03/28/15 12/14/22 (montelukast) estradiol 0.1 mg/24 hr weekly 1 ea transdermal . DIRECTED 03/28/15 12/14/22 transdermal patch azelastine-fluticasone 137 mcg-50 23 gm NS BID 11/11/17 12/14/22 mcg/spray nasal spray (Dymista) hydrocortisone valerate 0.2 % 15 gm topical BID 11/11/17 12/14/22 topical cream ibuprofen 600 mg tablet 600 mg PO Q6H PRN Pain and 08/11/21 12/14/22 inflammation #60 tabs inhalational spacing device 01/15/22 12/13/22 (BreatheRite MDI Spacer) magnesium oxide 800 mg PO QHS 01/15/22 12/14/22 fexofenadine 180 mg tablet 180 mg PO DAILY 04/02/22 12/14/22 galantamine 12 mg tablet 12 mg PO BID #180 tabs 11/13/22 12/14/22 memantine 5 mg tablet See Rx Instructions .Route 11/13/22 12/14/22 .COMPLEX #180 tabs Oxygen 12/04/22 12/13/22 budesonide-formoterol HFA 160 2 puff inhalation BID 12/13/22 12/14/22 mcg-4.5 mcg/actuation aerosol inhaler (Symbicort) hydrochlorothiazide 12.5 mg capsule 12.5 mg PO DAILY 12/13/22 12/14/22 hydroxyzine HCl 25 mg tablet 25 mg PO QHS PRN 12/13/22 12/14/22 ipratropium bromide intranasal DAILY AM 12/13/22 12/13/22 Previous Rx's Medication Instructions Recorded ibuprofen 600 mg tablet 600 mg PO Q6H PRN Pain and 08/11/21 inflammation #60 tabs galantamine 12 mg tablet 12 mg PO BID #180 tabs 11/13/22 memantine 5 mg tablet See Rx Instructions .Route 11/13/22 .COMPLEX #180 tabs Allergies Allergy/AdvReac Type Severity Reaction Status Date / Time latex Allergy Intermediate Skin Rash Unverified 12/14/22 18:18 animal,grass,smoke,tree Allergy Unknown Uncoded 12/14/22 18:18 pllen, molds contrast dye Allergy Unknown Unknown Uncoded 12/14/22 18:18 General YANETH: 3 Review of Systems Narrative: per HPI PFSH All Active Problems (Updated 12/14/22 @ 19:38 by Salvador Loera MD) BURRIS (dyspnea on exertion) (Acute) Asthma, severe persistent (Acute) Environmental allergies (Acute) Rhinitis, chronic (Acute) Postherpetic neuralgia (Acute) Osteoporosis (Chronic) Irregular menses (Acute) Kidney stones (Chronic) Memory impairment (Acute) Hair loss (Acute) Fatigue (Acute) Insomnia (Acute) Unspecified contraceptive management (Acute) Herpes labialis (Acute) Rotator cuff syndrome of right shoulder (Acute) Folliculitis (Acute) presumed fungal Orthostasis (Acute) positional Keratosis pilaris (Acute) Osteoarthritis (Chronic) shoulder Lumbar pain (Acute) Hypokalemia (Acute) Oxygen desaturation (Acute) Dyspnea (Acute) RAD (reactive airway disease) (Acute) Loose stools (Acute) Abdominal pain (Acute) Constipation (Acute) Pain, foot (Acute) right Corns and callosities (Acute) COVID-19 long hauler (Acute) Sore throat (Acute) Cough (Acute) COVID-19 virus infection (Acute) Hallux valgus (acquired), left foot (Acute) Screening for colorectal cancer (Chronic) 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) Allergic rhinitis (Chronic 11/04/13) Postnasal drip (Chronic 04/05/14) Mild cognitive impairment (Chronic) Allergic fungal sinusitis (Acute 07/20/13) Allergic rhinitis due to pollen (Chronic 08/08/15) Closed nondisplaced avulsion fracture of tuberosity of right calcaneus (Acute 06/09/18) Because of persistent symptoms and tenderness over the anterior talus i think repeat x-rays are indicated to rule out an osteochondral injury to the talus. These are performed today and appear normal. I inform the patient that it will take along time before she is asymptomatic. I recommend a trial of topricin to help with the discomfort. follow-up with me an needed. 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 HEENT: NC/AT. Normal facial exam. Eyes: Normal conjunctiva and sclera. Neck: Supple. Trachea midline. Lungs: Normal respiratory effort. Lungs are clear. Cor: RRR without murmur/gallop. Good radial pulses. GI: Soft. NT/ND Neuro: A+O x 3. Normal speech, mentation, gait. Cranial nerves II - XII grossly intact. No gross motor or sensory deficit. Ext: No C/C/E. Skin: Warm and dry without rash.
[2022-12-14 18:13] VITALS: BP 170/68; PULSE 79; RESP 18; O2SAT 100
--- NOTE | 2022-12-14 18:30 | DI.RAD_ITS ---
Exam(s) XR CHEST 2V PA LATERAL EXAM: XR CHEST 2V PA LATERAL CLINICAL HISTORY: BURRIS TECHNIQUE: 2D digital imaging was performed. COMPARISON: CT CT CHEST PE CTA from 06/14/2022 FINDINGS: HEART: Normal size. Aorta: Not dilated. PULMONARY VASCULATURE: Normal. LUNGS: Hyperinflated but clear. PLEURAL SPACE: No pleural effusion or pneumothorax. BONE:Unremarkable for age. IMPRESSION: No acute abnormality. DATA REPOSITORY: RADIATION DOSE DELIVERED:
[2022-12-14 18:47] LABS: Abs Immature Grans 0.01 10^3/uL (0.0-0.06); Absolute Basophil Count 0.06 10^3/uL (0.0-0.2); Absolute Lymphocyte Count 1.43 10^3/uL (1.2-3.4); Absolute Monocyte Count 0.55 10^3/uL (0.1-0.8); Basophils % 1.3; Eosinophils % 2.1; HCT 40.6 % (36.0-46.0); HGB 13.6 g/dL (11.2-15.7); Immature Grans % 0.2; Lymphocytes % 30.1; MCH 30.6 pg (27.0-33.0); MCHC 33.5 % (32.0-36.0); MCV 91 fL (80-95); MPV 8.7 fL (8.0-11.0); Monocytes % 11.6; Neutrophils % 54.7; Platelet Count 198 10^3/uL (130-400); RBC 4.45 10^6/uL (3.93-5.22); RDW 13.2 % (11.7-14.6); RDW-SD 44.6 fL; WBC 4.75 10^3/uL (4.4-10.8)
[2022-12-14 18:48] VITALS: RESP 17
[2022-12-14 19:05] LABS: ALT 33 U/L (14-59); AST 23 U/L (15-37); Albumin 3.7 g/dL (3.4-5.0); Alkaline Phosphatase 67 U/L (46-116); Anion Gap 3.4 mmol/L (3-11); BUN 15 mg/dL (7-18); Bilirubin, Total 0.3 mg/dL (0.2-1.0); CO2 31.6 mmol/L (21.0-32.0); Calcium 9.1 mg/dL (8.5-10.1); Chloride 101 mmol/L (98-107); Glucose 95 mg/dL (74-106); Magnesium 2.2 mg/dL (1.8-2.4); Potassium 3.3 mmol/L (3.5-5.1); Sodium 136 mmol/L (136-145); Total Protein 7.3 g/dL (6.4-8.2); Troponin I < 50 ng/L (<or=60)
[2022-12-14 19:17] LABS: D-Dimer 222 ng/mlFEU (<500)
--- NOTE | 2022-12-14 19:41 | DI.VRAD_ITS ---
PROCEDURE INFORMATION: Exam: XR Chest Exam date and time: 12/14/2022 7:24 PM Age: 57 years old Clinical indication: Dyspnea; Additional info: Dyspnea on exertion TECHNIQUE: Imaging protocol: Radiologic exam of the chest. Views: 2 views. COMPARISON: CR XR CHEST 2V PA LATERAL 12/25/2021 1:39 PM FINDINGS: Lungs: Moderate hyperinflation. No consolidation. Pleural spaces: Unremarkable. No pleural effusion. No pneumothorax. Heart/Mediastinum: Unremarkable. No cardiomegaly. Bones/joints: Unremarkable. IMPRESSION: 1. Moderate hyperinflation suggesting reactive airway disease, air trapping from URI, or underlying process such as emphysema/COPD. 2. No acute infiltrates or edema. 3. No pleural effusion. Dictated and Authenticated by: Weston Minaya MD. Ordering:SHANICE Franco MD
[2022-12-14 19:44] VITALS: BP 131/77; PULSE 64; RESP 16; O2SAT 99
== END 2022-12-14 20:13 | disposition home or self-care (01) ==
PROVIDERS: Emergency Provider Emergency Medicine; PCP Nurse Practitioner Family
DX: R06.09 Other forms of dyspnea (principal); R07.89 Other chest pain; E87.6 Hypokalemia; J45.909 Unspecified asthma, uncomplicated; Z77.22 Contact with and (suspected) exposure to environmental tobacco smoke (acute) (chronic); Z86.16 Personal history of COVID-19
CPT/HCPCS: 36415; 80053; 93005; 99283; 71046; 83735; 84484; 85025; 85379; 93010

== ENCOUNTER 2022-12-19 11:25 | Outpatient (RCR) | payer BC, SELFPAY | END 2022-12-23 23:59 | disposition home or self-care (01) | LOC: PRC 11:25 | PROVIDERS: PCP Nurse Practitioner Family; Referring Provider Student in an Organized Health Care Education/Training Program; Visit Provider Student in an Organized Health Care Education/Training Program ==

== ENCOUNTER 2023-01-23 14:00 | Outpatient (RCR) | payer BC, SELFPAY | END 2023-01-23 23:59 | disposition home or self-care (01) | LOC: PRC 14:00 | PROVIDERS: PCP Nurse Practitioner Family; Referring Provider Student in an Organized Health Care Education/Training Program; Visit Provider Student in an Organized Health Care Education/Training Program | DX: J45.40 Moderate persistent asthma, uncomplicated (principal) | CPT/HCPCS: 94626 ==

== ENCOUNTER 2023-02-22 14:03 | Outpatient (RCR) | payer BC, SELFPAY | END 2023-02-22 23:59 | disposition home or self-care (01) | LOC: PRC 14:03 | PROVIDERS: PCP Nurse Practitioner Family; Referring Provider Student in an Organized Health Care Education/Training Program; Visit Provider Student in an Organized Health Care Education/Training Program | DX: J45.50 Severe persistent asthma, uncomplicated (principal) | CPT/HCPCS: 94626 ==

== ENCOUNTER 2023-03-06 13:00 | Outpatient (RCR) | payer BC, SELFPAY | END 2023-03-25 23:59 | disposition home or self-care (01) | LOC: PRC 13:00 | PROVIDERS: PCP Nurse Practitioner Family; Referring Provider Student in an Organized Health Care Education/Training Program; Visit Provider Student in an Organized Health Care Education/Training Program | DX: J45.50 Severe persistent asthma, uncomplicated (principal) | CPT/HCPCS: 94626 ==

== ENCOUNTER 2023-03-08 02:23 | Outpatient (CLI) | payer BC, SELFPAY ==
--- NOTE | 2023-03-11 09:45 | W.PFT ---
Date of service: 03/08/23 Time of Service: 15:00 Pulmonary Function Test Result Indications: Post Pulmonary Rehab Interpretation Spirometry: There is no airflow limitation Diffusion Capacity: Normal diffusion Impression As compared to 02/02/22, lung function is stable. Clinical Correlation therefore is recommended.
== END 2023-03-08 02:24 | disposition home or self-care (01) ==
LOC: RT 02:23
PROVIDERS: PCP Nurse Practitioner Family; Visit Provider Student in an Organized Health Care Education/Training Program
DX: J45.998 Other asthma (principal)
CPT/HCPCS: 94010

== ENCOUNTER → 2023-10-23 01:42 | Outpatient (CLI) | payer BC, SELFPAY ==
--- NOTE | 2023-10-23 | DI.MRI_ITS ---
Exam(s) MR LOWER JOINT RT WO EXAM: MR LOWER JOINT RT WO CLINICAL HISTORY: Internal derangement, M23.91; ? meniscus tear. TECHNIQUE: Multiplanar multisequence MRI was performed. COMPARISON: CR XR KNEE RT 3V AP,LAT,HERNAN from 05/31/2022 FINDINGS: BONES: There is no fracture or contusion pattern. Orthopedic screws are seen in the anterior tibial t uberosity. JOINTS: There is thinning of the articular cartilage and subchondral edema and cysts seen in the late ral femoral condyle. There to clear cartilage otherwise is intact. No effusion is present. TENDONS: Extensor mechanism: Unremarkable. Medial retinaculum: Unremarkable. Lateral retinaculum: Unremarkable. Popliteus: Unremarkable. MUSCLES: Unremarkable. MENISCI: The medial meniscus is unremarkable. There is linear signal seen in the body of the lateral meniscus which appears to articulate with the inferior surface suspicious for tear. SOFT TISSUES: Unremarkable. LIGAMENTS: Anterior Cruciate: Unremarkable. Posterior Cruciate: Unremarkable. Medial Collateral:Unremarkable. Lateral Collateral: Unremarkable. OTHER: IMPRESSION: 1. There is linear abnormal signal seen in the body of the lateral meniscus which appears to articula te with the inferior which appears to contact the inferior surface suspicious for tear. 2. Postsurgical changes in the anterior tibial tuberosity. 3. Small focus of cartilage loss down to the bone in the lateral femoral condyle. 4. No evidence of a ligament tear. DATA REPOSITORY:
== END ==
PROVIDERS: PCP Nurse Practitioner Family; Visit Provider Specialist
DX: Z98.890 Other specified postprocedural states (principal)
CPT/HCPCS: 73721

== ENCOUNTER → 2024-03-02 02:43 | Outpatient (CLI) | payer BC, SELFPAY ==
--- NOTE | 2024-03-02 | DI.MRI_ITS ---
Exam(s) MR UPPER JOINT LT WO EXAM: MR UPPER JOINT LT WO CLINICAL HISTORY: Lt rotator cuff tear, M75.102. TECHNIQUE: Multiplanar multisequence MRI was performed. COMPARISON: None. FINDINGS: Exam is mildly limited by motion. BONES: There is no fracture or contusion pattern. Small degenerative cyst in the superior humeral h ead. JOINTS:The acromioclavicular joint is normal. The glenohumeral joint is normal. TENDONS: Supraspinatus: Unremarkable. Infraspinatus: Unremarkable. Subscapularis: Unremarkable. Teres Minor: Unremarkable. Biceps and [place]: Prior biceps tendon repair. MUSCLES: Unremarkable. GLENOID LABRUM: Unremarkable on this noncontrast examination. SOFT TISSUES: Unremarkable. OTHER: Subacromial and subdeltoid bursae minimal fluid in the subcoracoid bursa.. IMPRESSION: Prior biceps tendon repair. No evidence of acute rotator cuff tear. DATA REPOSITORY:
--- OUTSIDE RECORDS SUMMARY | 2024-03-02 02:45 | XMS_ITS | Continuity of Care Document ---
Author Name Unknown Organization [facility] Address [address] [place] [address] Care Team Providers Care Cloth Folder Hand Name Role Phone BAKARI PATEL Primary Care Physician [phone] Encounter LTTL_AL FIN NBR [id number] Date(s): 10/10/23 - 10/10/23 [facility] [address] [place], [place] [address] Encounter Diagnosis Internal derangement of right knee(Discharge Diagnosis) - 10/10/23 Discharge Disposition: Home or Self Care Attending Physician: АЛЕКСАНДР Holder Referring Physician: BAKARI PATEL Allergies, Adverse Reactions, Alerts No Known Medication Allergies Assessment and Plan Extracted from: Title:[place] right knee Author:АЛЕКСАНДР Holder Date:10/10/23 1.??Internal derangement of right knee??M23.91 The patient comes in today with right knee pain??due to patellofemoral syndrome in the setting of likely a meniscus tear given her symptoms and exam. ??I like to obtain an MRI of this to evaluate it further. ??We will see her back??when that is complete with further to suggestions at that time. Future Scheduled Tests Radiology* MRI Knee w/o Contrast Right 10/10/23 Medications azelastine 137 mcg/inh (0.1%) nasal spray 137 mcg 1 sprays, Nasal, BID, # 1 EA, 1 Refill(s) Start Date: 06/13/22 Status: Ordered Biotene 0 Refill(s) Start Date: 10/10/23 Status: Ordered galantamine 4 mg oral tablet 4 mg = 1 tab, Oral, BID, # 180 tab, 0 Refill(s) Start Date: 10/10/23 Status: Ordered glucosamine 0 Refill(s) Start Date: 10/10/23 Status: Ordered hydroCHLOROthiazide 12.5 mg oral capsule 12.5 mg = 1 cap, Oral, Daily, # 30 cap, 0 Refill(s) Start Date: 10/10/23 Status: Ordered MagneBind 400 0 Refill(s) Start Date: 10/10/23 Status: Ordered memantine 5 mg oral tablet 5 mg = 1 tab, Oral, Daily, # 30 tab, 0 Refill(s) Start Date: 10/10/23 Status: Ordered Multi Vitamin+ 0 Refill(s) Start Date: 10/10/23 Status: Ordered sertraline 100 mg oral tablet 100 mg = 1 tab, Oral, Daily, # 30 tab, 0 Refill(s) Start Date: 10/10/23 Status: Ordered Problem List Condition Confirmation Course Effective Dates Status Health [facility] Informant Internal derangement of right knee Confirmed Active Vital Signs Most recent to oldest [Reference Range]: 1 Blood Pressure [90-140/60-90 mmHg] 108/6 8mmHg (10/10/23 2:51 PM) Mean Arterial Pressure, Cuff [70-110 mmH g] 81 mmHg (10/10/23 2:51 PM) Weight 61.23 kg (10/10/23 2:51 PM) Weight Measured (lbs) 134.989 lb (10/10/23 2:51 PM) Weight Dosing 61.230 kg (10/10/23 2:51 PM) Height 172.72 cm (10/10/23 2:51 PM) Height/Length Measured (inches) 68 inch (10/10/23 2:51 PM) BSA Measured 1.71 m2 (10/10/23 2:51 PM) Body Mass Index 20.52 kg/m2 (10/10/23 2:51 PM) Social History Social History Type Response Tobacco Never tobacco user T obacco Use:. Sex Procedure note * Christiana Loera: PERFORM Event Display: Procedure Note Authored Date: [id number] Physician Outpatient Note * АЛЕКСАНДР Holder: PERFORM Event Display: Office Clinic Note Physician Authored Date: [id number] JESSICA GTZ :1965 Age:58 years Sex:Female Visit Date:10/10/2023 Primary Care Physician: BAKARI PATEL Chief Complaint Right Knee Pain History of Present Illness The patient comes in today with right knee pain. ??In 2013 she underwent a tibial tubercle transfer.?? She does have difficulty getting up from a seated position and experiences anterior knee pain when this occurs.?? Going up and down stairs has been painful for her.?? This is progressively gotten worse to the point where it is negatively affecting her ADLs. ??She does periodically get swelling.?? Her knee will feel unstable at times. Review of Systems Other than the HPI today is unremarkable Physical Exam Vitals & Measurements BP:??108/68?? HT:??172.72??cm?? WT:??61.23??kg?? BMI:??20.52?? Pain Score:??1?? BSA:??1.71?? General: Alert and oriented x3, pleasant cooperative, in no acute distress, appears to be their stated age, is generally fit appearing.? Right knee:??Moderate effusion. ??Well-healed postoperative incision.?? Medial and lateral jointline tenderness with painful Chey's. ??Terminal ends of flexion are painful??throughout her knee. ??Stable anteriorly and posteriorly. ??Negative varus and valgus stress testing.?? Positive patell ofemoral grind testing. Assessment/Plan 1.??Internal derangement of right knee??M23.91 The patient comes in today with right knee pain??due to patellofemoral syndrome in the setting of likely a meniscus tear given her symptoms and exam. ??I like to obtain an MRI of this to evaluate it further. ??We will see her back??when that is complete with further to suggestions at that time. Problem List/Past Medical History Ongoing Internal derangement of right knee Historical No qualifying data Medications azelastine 137 mcg/inh (0.1%) nasal spray, 137 mcg= 1 sprays, Nasal, BID, 1 refills Biotene galantamine 4 mg oral tablet, 4 mg= 1 tab, Oral, BID glucosamine hydroCHLOROthiazide 12.5 mg oral capsule, 12.5 mg= 1 cap, Oral, Daily MagneBind 400 memantine 5 mg oral tablet, 5 mg= 1 tab, Oral, Daily Multi Vitamin+ sertraline 100 mg oral tablet, 100 mg= 1 tab, Oral, Daily Allergies No Known Medication Allergies Social History Electronic Cigarette/Vaping Electronic Cigarette Use: Never. Tobacco Never tobacco user Tobacco Use:. Diagnostic Results Diagnostic Study Interpretation: X-rays taken of her right knee do not show any fractures or dislocations. ??There are 2 tibial tubercle??transfer screws present in good position with no evidence of lucencies. Electronically Signed on 10/10/23 03:45 PM АЛЕКСАНДР Holder Patient Care team information Care Team Personnel Name: BAKARI PATEL Position: No Access Member Role: Primary Care Physician Address: Address: [address] [place] [address]- Care Team Related Persons Name: LYNDA GTZ
--- OUTSIDE RECORDS SUMMARY | 2024-03-02 02:46 | XMS_ITS | Continuity of Care Document ---
Author Name Unknown Organization [facility] Address [address] [place] [address] Care Team Providers Care Public Improvement Inspector Name Role Phone BAKARI PATEL Primary Care Physician Encounter [facility] NBR [id number] Date(s): 02/06/24 - 02/06/24 [facility] [address], [place] [address] Discharge Disposition: Home Allergies, Adverse Reactions, Alerts Substance Reaction Severity Status Animal Dander Unknown Active escitalopram Insomnia Mild Active Mold Unknown Unknown Active Environmental Smoke Unknown Unknown Active Tree Pollen Unknown Unknown Active Seasonal Unknown Unknown Active Assessment and Plan Future Appointments Future Scheduled Tests Radiology* MRI Knee w/o Contrast Right 10/10/23 * MRI Shoulder w/o Contrast Left 02/06/24 * MRI Shoulder w/o Contrast Left 02/06/24 Medications acyclovir 200 mg oral capsule 200 mg = 1 cap, Oral, 5 times per day, PRN rash, 0 Refill(s) Start Date: 12/05/23 Status: Ordered Albuterol (Eqv-ProAir HFA) 90 mcg/inh inhalation aerosol 2 puffs, Inhale, every 6 hr, PRN as needed for wheezing, 0 Refill(s) Start Date: 12/05/23 Status: Ordered Cami 24 Hour Allergy oral tablet 180 mg = 1 tab, Oral, Daily, 0 Refill(s) Start Date: 10/29/23 Status: Ordered azelastine 137 mcg/inh (0.1%) nasal spray 137 mcg 1 sprays, Nasal, BID, # 1 EA, 1 Refill(s) Start Date: 06/13/22 Status: Ordered cyclobenzaprine 5 mg oral tablet 20 EA, 0 Refill(s), 0 Refill(s) Start Date: 12/19/23 Status: Ordered estradiol 0.1 mg/g vaginal cream 2 g, Vaginal, Sat/Sat Start Date: 12/05/23 Status: Ordered Estradiol Patch 0.1 mg/24 hours twice weekly transdermal film, extended release 1 patches, Transdermal, Start Date: 12/05/23 Status: Ordered fluorometholone 0.1% ophthalmic suspension 5 mL, 0 Refill(s), INSTILL ONE DROP IN EACH EYE TWO TIMES A DAY, 0 Refill(s) Start Date: 12/19/23 Status: Ordered galantamine 12 mg oral tablet 12 mg = 1 tab, Oral, BID, 0 Refill(s) Start Date: 10/29/23 Status: Ordered glucosamine 500 mg =, Oral, Daily, also takes biotin, D, zinc, immune, 0 Refill(s) Start Date: 10/10/23 Status: Ordered hydroCHLOROthiazide 12.5 mg oral capsule 12.5 mg = 1 cap, Oral, Daily, 0 Refill(s) Start Date: 10/10/23 Status: Ordered HYDROcodone-acetaminophen 5 mg-325 mg oral tablet 15 EA, 0 Refill(s), 0 Refill(s) Start Date: 12/19/23 Status: Ordered hydrocortisone valerate 0.2% topical ointment 60 g, 0 Refill(s), APPLY TO AFFECTED SKIN THREE TIMES A DAY NEEDED, 0 Refill(s) Start Date: 12/19/23 Status: Ordered ibuprofen 800 mg oral tablet 800 mg = 1 tab, Oral, TID, PRN as needed for pain, 0 Refill(s) Start Date: 12/05/23 Status: Ordered ipratropium 21 mcg/inh (0.03%) nasal spray 2 sprays, !-Nasal, BID, 0 Refill(s) Start Date: 10/29/23 Status: Ordered magnesium oxide 400 mg (241.3 mg elemental magnesium) oral tablet 400 mg = 1 tab, Oral, every night at bedtime, 0 Refill(s) Start Date: 12/05/23 Status: Ordered memantine 5 mg oral tablet 5 mg = 1 tab, Oral, BID, 0 Refill(s) Start Date: 10/10/23 Status: Ordered montelukast 10 mg oral tablet 90 EA, 0 Refill(s), TAKE ONE TABLET BY MOUTH EVERY DAY, 0 Refill(s) Start Date: 12/19/23 Status: Ordered Multi Vitamin+ 1 tab, Oral, Daily, 0 Refill(s) Start Date: 10/10/23 Status: Ordered Phenergan 25 mg oral tablet 5 EA, 0 Refill(s), 0 Refill(s) Start Date: 12/19/23 Status: Ordered sertraline 100 mg oral tablet 90 EA, 0 Refill(s), TAKE ONE TABLET BY MOUTH EVERY DAY, 0 Refill(s) Start Date: 02/06/24 Status: Ordered sertraline 25 mg oral tablet 30 EA, 0 Refill(s), TAKE ONE TABLET BY MOUTH EVERY DAY, 0 Refill(s) Start Date: 12/19/23 Status: Ordered sertraline 50 mg oral tablet 75 mg = 1.5 tab, Oral, Daily, 0 Refill(s) Start Date: 10/29/23 Status: Ordered Singulair 10 mg oral tablet 10 mg = 1 tab, Oral, every evening, 0 Refill(s) Start Date: 10/29/23 Status: Ordered SUMAtriptan 100 mg oral tablet 100 mg = 1 tab, Oral, Daily, PRN as needed for migraine headache, 0 Refill(s) Start Date: 12/05/23 Status: Ordered Symbicort 160 mcg-4.5 mcg/inh inhalation aerosol 2 puffs, Inhale, BID, PRN wheezing, 0 Refill(s) Start Date: 12/05/23 Status: Ordered Problem List Condition Confirmation Course Effective Dates Status H ealth Status Informant Abnormal auditory perception Confirmed Active Allergic rhinitis Confirmed Active Allergic rhinitis Confirmed Active Asthma Confirmed Active Asthma Confirmed Active Bruxism Confirmed Active Chondromalacia of right knee Confirmed Active Chronic insomnia Confirmed Active Chronic [id number] syndrome Confirmed Active Cognitive impairment 1 Confirmed Active Chondral defect of femoral condyle Confirmed Active Internal derangement of right knee Confirmed Active Disorder of rotator cuff Confirmed Active Dysfunction of eustachian tube Confirmed Active Eczema Confirmed Active Environmental allergy Confirmed Active GERD - Gastro-esophageal reflux disease Confirmed Active H/O: migraine Confirmed Active Herpes zoster without complication Confirmed Active History of kidney stone Confirmed Active Nontraumatic rupture of rotator cuff of left shoulder Confirmed Active Osteoporosis Confirmed Active Right patellofemoral syndrome Confirmed Active PONV - Postoperative nausea and vomiting Confirmed Active Posterior rhinorrhea Confirmed Active SOBOE - Shortness of breath on exertion Confirmed Active Subacromial impingement of left shoulder Confirmed Active Tear of lateral meniscus of right knee Confirmed Active Tear of medial meniscus of right knee Confirmed Active 1followed by [facility] neuro on meds Procedures Procedure Date Related Diagnosis Body Site Status Arthroscopy Knee (Right) 1 12/11/23 Completed Arthroscopy of knee Compl eted Arthroscopy of shoulder C ompleted Bunionectomy Completed 1auto-populated from documented surgical case Social History Social History Type Response Tobacco Never tobacco user T obacco Use:. Sex Patient Care team information Care Team Personnel Name: BAKARI PATEL Position: No Access Member Role: Primary Care Physician Address: Address: [address] [place] [address]- Care Team Related Persons Name: LYNDA GTZ
--- OUTSIDE RECORDS SUMMARY | 2024-03-02 02:46 | XMS_ITS | Continuity of Care Document ---
Author Name Unknown Organization [facility] Address [address] [place] [address] Care Team Providers Care Pattern Changer Name Role Phone ELKINBAKARI Moss Isa Primary Care Physician Encounter [facility] NBR [id number] Date(s): 12/11/23 - 12/11/[address] [address]- Encounter Diagnosis Chondromalacia of right knee(Discharge Diagnosis) - 12/11/23 Right patellofemoral syndrome(Discharge Diagnosis) - 12/11/23 Tear of lateral meniscus of right knee(Discharge Diagnosis) - 12/11/23 Discharge Disposition: Home f/u External Provider Attending Physician: Arik Hylton MD Admitting Physician: Arik Hylton MD Referring Physician: Arik Hylton MD Allergies, Adverse Reactions, Alerts Substance Reaction Severity Status Animal Dander Unknown Active escitalopram Insomnia Mild Active Mold Unknown Unknown Active Environmental Smoke Unknown Unknown Active Tree Pollen Unknown Unknown Active Seasonal Unknown Unknown Active Assessment and Plan Future Appointments Future Scheduled Tests Radiology* MRI Knee w/o Contrast Right 10/10/23 Functional Status 12/11/23 Anti-Embolism Device Activity: In place 1 Anti-Embolism Site Condition: No complic ations 1Result Comment: Patient discharged with per MD instructions Medications acyclovir 200 mg oral capsule 200 [...] 1 Refill(s) Start Date: 06/13/22 Status: Ordered estradiol 0.1 mg/g vaginal cream 2 g, Vaginal, Sat/Sat Start Date: 12/05/23 Status: Ordered Estradiol Patch 0.1 mg/24 hours twice weekly transdermal film, extended release 1 patches, Transdermal, Sat/Sat Start Date: 12/05/23 Status: Ordered galantamine 12 mg oral tablet 12 mg = 1 tab, Oral, BID, 0 Refill(s) Start Date: 10/29/23 Status: Ordered glucosamine 500 mg =, Oral, Daily, also takes biotin, D, zinc, immune, 0 Refill(s) Start Date: 10/10/23 Status: Ordered hydroCHLOROthiazide 12.5 mg oral capsule 12.5 mg = 1 cap, Oral, Daily, 0 Refill(s) Start Date: 10/10/23 Status: Ordered ibuprofen 800 mg oral tablet [...] Start Date: 10/10/23 Status: Ordered Multi Vitamin+ 1 tab, Oral, Daily, 0 Refill(s) Start Date: 10/10/23 Status: Ordered sertraline 50 mg oral tablet [...] Effective Dates Status H ealth Status Informant Allergic rhinitis Confirmed Active Asthma Confirmed Active Bruxism Confirmed Active Chondromalacia of right knee Confirmed Active Chronic insomnia Confirmed Active Chronic [id number] syndrome Confirmed Active Cognitive impairment 1 Confirmed Active Internal derangement of right knee Confirmed Active Eczema Confirmed Active GERD - Gastro-esophageal reflux disease Confirmed Active H/O: migraine Confirmed Active History of kidney stone Confirmed Active Osteoporosis Confirmed Active Right patellofemoral syndrome Confirmed Active PONV - Postoperative nausea and vomiting Confirmed Active SOBOE - Shortness of breath on exertion Confirmed Active Tear of lateral meniscus of right knee Confirmed Active 1followed by [facility] neuro on meds Procedures Procedure Date Related Diagnosis Body Site Status Arthroscopy Knee (Right) 1 12/11/23 Completed Arthroscopy of knee Compl eted Arthroscopy of shoulder C ompleted Bunionectomy Completed 1auto-populated from documented surgical case Vital Signs Most recent to oldest [Reference Range]: 1 2 3 Temperature Temporal Artery [36-38 Deg C] 36.2 Deg C (12/11/23 8:20 AM) 36.5 Deg C (12/11/23 6:37 AM) Temperature Temporal Artery (DegF) [97.3-100 Deg F] 97.16 Deg F *LOW* (12/11/23 8:20 AM) Peripheral Pulse Rate [60-100 bpm] 62 bpm (12/11/23 10:30 AM) 54 bpm *LOW* (12/11/23 10:15 AM) 53 bpm *LOW* (12/11/23 10:00 AM) Respiratory Rate [12-24 br/min] 16 br/min (12/11/23 6:37 AM) Blood Pressure [90-140/60-90 mmHg] 128/72mmHg (12/11/23 10:30 AM) 116/77mmHg (12/11/23 10:15 AM) 117/65mmHg (12/11/23 10:00 AM) Mean Arterial Pressure, Cuff [65-140 mmHg] 91 mmHg (12/11/23 10:30 AM) 90 mmHg (12/11/23 10:15 AM) 82 mmHg (12/11/23 10:00 AM) Blood Pressure Location Left arm (12/11/23 10:30 AM) Left arm (12/11/23 10:15 AM) Left arm (12/11/23 10:00 AM) Blood Pressure Method Automatic (12/11/23 10:30 AM) Automatic (12/11/23 10:15 AM) Automatic (12/11/23 10:00 AM) Weight 62 kg (12/05/23 3:58 PM) Weight Dosing 62.000 kg (12/05/23 3:58 PM) Height 173 cm (12/05/23 3:58 PM) Social History Social History Type Response Tobacco Never tobacco user T obacco Use:. Sex Patient Care team information Care Team Personnel Name: BAKARI PATEL Position: No Access Member Role: Primary Care Physician Address: Address: [address] [place] [address]- Care Team Related Persons Name: LYNDA GTZ
--- OUTSIDE RECORDS SUMMARY | 2024-03-02 02:46 | XMS_ITS | Continuity of Care Document ---
Author Name Unknown Organization [facility] Address [address] [place] [address] Care Team Providers Care Eligibility And Occupancy Interviewer Name Role Phone BAKARI PATEL Primary Care Physician Encounter [facility] NBR [id number] Date(s): 02/06/24 - 02/06/24 [facility] [address], [place] [address] Encounter Diagnosis Chondromalacia of right knee(Discharge Diagnosis) - 02/06/24 Tear of lateral meniscus of right knee(Discharge Diagnosis) - 02/06/24 Tear of medial meniscus of right knee(Discharge Diagnosis) - 02/06/24 Right patellofemoral syndrome(Discharge Diagnosis) - 02/06/24 Subacromial impingement of left shoulder(Discharge Diagnosis) - 02/06/24 Discharge Disposition: Home or Self Care Attending Physician: АЛЕКСАНДР Holder Referring Physician: BAKARI PATEL Allergies, Adverse Reactions, Alerts Substance Reaction Severity Status Animal Dander Unknown Active escitalopram Insomnia Mild Active Mold Unknown Unknown Active Seasonal Unknown Unknown Active Tree Pollen Unknown Unknown Active Environmental Smoke Unknown Unknown Active Assessment and Plan Extracted from: Title:[place] right knee, left shoulder Author:АЛЕКСАНДР Lara Date:02/06/24 1.??Chondromalacia of right knee??M94.261 2.??Tear of lateral meniscus of right knee??S83.281A 3.??Tear of medial meniscus of right knee??S83.241A 4.??Right patellofemoral syndrome??M22.2X1 5.??Subacromial impingement of left shoulder??M75.42 The patient comes in today status post the aforementioned procedure to her right knee. ??She will continue with strengthening and conditioning. ??She will no longer need her brace. ??She can discontinue her aspirin. ?? She also is complaining of left shoulder pain status post a previous rotator cuff repair. ??As she has failed extensive conservative management without relief, we discussed her options including doing nothing,??an MRI,??or physical therapy. ??As she has already been doing home exercises without relief. ??She like to obtain an MRI. ??We will see her back when that is complete with further suggestions at that time. ?? Future Appointments Future Scheduled Tests Radiology* MRI [...] Transdermal, Sat/Sat Start Date: 12/05/23 Status: Ordered fluorometholone 0.1% [...] Confirmed Active Chronic insomnia Confirmed Active Chronic [id number] syndrome Confirmed Active Cognitive impairment 1 Confirmed [...] of right knee Confirmed Active 1followed by [facility] neuro on meds Procedures Procedure Date Related Diagnosis Body Site Status Arthroscopy Knee (Right) 1 12/11/23 Completed Arthroscopy of knee Compl eted Arthroscopy of shoulder C ompleted Bunionectomy Completed 1auto-populated from documented surgical case Vital Signs Most recent to oldest [Reference Range]: 1 Peripheral Pulse Rate [60-100 bpm] 78 bp m (02/06/24 11:29 AM) Blood Pressure [90-140/60-90 mmHg] 112/6 5mmHg (02/06/24 11:29 AM) Mean Arterial Pressure, Cuff [65-140 mmH g] 81 mmHg (02/06/24 11:29 AM) Weight 63.50 kg (02/06/24 11:29 AM) Weight Measured (lbs) 139.993 lb (02/06/24 11:29 AM) Weight Dosing 63.500 kg (02/06/24 11:29 AM) Height 172.7 cm (02/06/24 11:29 AM) Height/Length Measured (inches) 67.99 in ch (02/06/24 11:29 AM) BSA Measured 1.75 m2 (02/06/24 11:29 AM) Body Mass Index 21.29 kg/m2 (02/06/24 11:29 AM) Social History Social History Type Response Tobacco Never tobacco user T obacco Use:. Sex Physician Outpatient Note * АЛЕКСАНДР Holder: PERFORM Event Display: Office Clinic Note Physician Authored Date: [id number] TRESAJESSICA :1965 Age:58 years Sex:Female Visit Date:02/06/2024 Primary Care Physician: BAKARI PATEL Chief Complaint RIGHT KNEE, LEFT SHOULDER History of Present Illness The patient comes in today status post surgery on 12/11/2023. ??She had a right knee arthroscopy with partial medial lateral meniscectomy, shaving chondroplasty, microfracture??of the femoral trochlea, and lateral lease.?Overall she is doing well with physical therapy and strengthening.?? She still gets a little bit of discomfort in the front of her knee but this is lessening. ?? She is also complaining of left shoulder pain. ??In the past she has had a left rotator cuff repair although this was done many years ago. ??She also had an OBT at that time.?Over the past several??months, she has been doing some exercises without any relief. ??She continues to get pain??withactivities at or above??shoulder level.?? She complains of weakness and sometimes the pain will wake her up at night. ??She has been taking Tylenol and ibuprofen to address this. ??She has been usingice as needed. Review of Systems Other than the HPI today is unremarkable Physical Exam Vitals & Measurements HR:??78??(Peripheral)?? BP:??112/65?? SpO2:??100%?? HT:??172.7??cm?? WT:??63.50??kg?? BMI:??21.29?? Pain Score:??0?? BSA:??1.75?? General: Alert and oriented x3, pleasant cooperative, in no acute distress, appears to be their stated age, is generally fit appearing.? Right knee: Well-healed postoperative incisions. ??Full range of motion. ??5-5 strength.?? Some crepitance knee extension.?? Negative??patellar tilt testing.?? No joint line tenderness and negative Chey's. ??Stable anteriorly and posteriorly. ??Negative varus and valgus stress testing. ?? Left shoulder: Full range of motion in all planes although terminal ends of forward elevation are uncomfortable for her.?? Positive Neer's and Clinton testing.?? Nontender about the proximal biceparea. ??Nontender about her AC joint negative crossarm adduction testing.?? 4+ out of 5 strength offorward elevation. ??5-5 strength to external and internal rotation.?? No Amish deformity or atrophy. Assessment/Plan 1.??Chondromalacia of right knee??M94.261 2.??Tear of lateral meniscus of right knee??S83.281A 3.??Tear of medial meniscus of right knee??S83.241A 4.??Right patellofemoral syndrome??M22.2X1 5.??Subacromial impingement of left shoulder??M75.42 The patient comes in today status post the aforementioned procedure to her right knee. ??She will continue with strengthening and conditioning. ??She will no longer need her brace. ??She can discontinue her aspirin. ?? She also is complaining of left shoulder pain status post a previous rotator cuff repair. ??As she has failed extensive conservative management without relief, we discussed her options including doing nothing,??an MRI,??or physical therapy. ??As she has already been doing home exercises without relief. ??She like to obtain an MRI. ??We will see her back when that is complete with further suggestions at that time. Problem List/Past Medical History Ongoing Abnormal auditory perception Allergic rhinitis Allergic rhinitis Asthma Asthma Bruxism Chondral defect of femoral condyle Chondromalacia of right knee Chronic insomnia Chronic [id number] syndrome Cognitive impairment Disorder of rotator cuff Dysfunction of eustachian tube Eczema Environmental allergy GERD - Gastro-esophageal reflux disease H/O: migraine Herpes zoster without complication History of kidney stone Internal derangement of right knee Nontraumatic rupture of rotator cuff of left shoulder Osteoporosis PONV - Postoperative nausea and vomiting Posterior rhinorrhea Right patellofemoral syndrome SOBOE - Shortness of breath on exertion Subacromial impingement of left shoulder Tear of lateral meniscus of right knee Tear of medial meniscus of right knee Historical No qualifying data Procedure/Surgical History ???Arthroscopy Knee (Right) (12/11/2023)???Arthroscopy of knee???Arthroscopy of shoulder???Bunionectomy Medications acyclovir 200 mg oral capsule, 200 mg= 1 cap, Oral, 5 times per day, PRN Albuterol (Eqv-ProAir HFA) 90 mcg/inh inhalation aerosol, 2 puffs, Inhale, every 6 hr, PRN Cami 24 Hour Allergy oral tablet, 180 mg= 1 tab, Oral, Daily azelastine 137 mcg/inh (0.1%) nasal spray, 137 mcg= 1 sprays, !-Nasal, BID, 1 refills cyclobenzaprine 5 mg oral tablet estradiol 0.1 mg/g vaginal cream, 2 g, Vaginal, Mon/Fri Estradiol Patch 0.1 mg/24 hours twice weekly transdermal film, extended release, 1 patches, Transdermal, Mon/Fri fluorometholone 0.1% ophthalmic suspension galantamine 12 mg oral tablet, 12 mg= 1 tab, Oral, BID glucosamine, 500 mg, Oral, Daily hydroCHLOROthiazide 12.5 mg oral capsule, 12.5 mg= 1 cap, Oral, Daily HYDROcodone-acetaminophen 5 mg-325 mg oral tablet hydrocortisone valerate 0.2% topical ointment ibuprofen 800 mg oral tablet, 800 mg= 1 tab, Oral, TID, PRN ipratropium 21 mcg/inh (0.03%) nasal spray, 2 sprays, !-Nasal, BID magnesium oxide 400 mg (241.3 mg elemental magnesium) oral tablet, 400 mg= 1 tab, Oral, every nightat bedtime memantine 5 mg oral tablet, 5 mg= 1 tab, Oral, BID montelukast 10 mg oral tablet Multi Vitamin+, 1 tab, Oral, Daily Phenergan 25 mg oral tablet sertraline 100 mg oral tablet sertraline 25 mg oral tablet sertraline 50 mg oral tablet, 75 mg= 1.5 tab, Oral, Daily Singulair 10 mg oral tablet, 10 mg= 1 tab, Oral, every evening SUMAtriptan 100 mg oral tablet, 100 mg= 1 tab, Oral, Daily, PRN Symbicort 160 mcg-4.5 mcg/inh inhalation aerosol, 2 puffs, Inhale, BID, PRN Allergies escitalopram??(Insomnia) Animal Dander Environmental Smoke??(Unknown) Mold??(Unknown) Seasonal??(Unknown) Tree Pollen??(Unknown) Social History Alcohol Past Electronic Cigarette/Vaping Electronic Cigarette Use: Never. Substance Use Never Tobacco Never tobacco user Tobacco Use:. Diagnostic Results Diagnostic Study Interpretation: X-rays taken today of her left shoulder show a biceps tenodesis Endobutton in good position.?? No fractures or dislocations. ??Her AC joint??is intact without any evidence of arthritis. ??The glenohumeral joint is intact. Electronically Signed on 02/06/2024 12:45 EDT АЛЕКСАНДР Holder Patient Care team information Care Team Personnel Name: BAKARI PATEL Position: No Access Member Role: Primary Care Physician Address: Address: [address] [place] [address]- Care Team Related Persons Name: LYNDA GTZ
--- OUTSIDE RECORDS SUMMARY | 2024-03-02 02:46 | XMS_ITS | Continuity of Care Document ---
Author Name Unknown Organization [facility] Address [address] [place] [address] Encounter [facility] FIN NBR [id number] Date(s): 01/09/23 - 01/09/23 [facility] [address], [place] [address] Diagnosis Chest pain(Discharge Diagnosis) - 01/09/23 COVID-19 long hauler(Discharge Diagnosis) - 01/09/23 Discharge Disposition: Home or Self Care Attending Physician: Alvino Lira DO Admitting Physician: Alvino Lira DO Allergies, Adverse Reactions, Alerts No Known Medication Allergies Functional Status 01/09/23 Other exposure to Infectious Disease Non e Medications azelastine 137 mcg/inh (0.1%) nasal spray 137 mcg 1 sprays, Nasal, BID, # 1 EA, 1 Refill(s) Start Date: 06/13/22 Status: Ordered Problem List No Known Problems Results Laboratory List Name Date BNP 01/09/23 CBC w/ Diff 01/09/23 Comprehensive Metabolic Panel (CMP) 01/09 Magnesium Level 01/09/23 Troponin-I 01/09/23 Automated Diff 01/09/23 Most recent to oldest [Reference Range]: 1 WBC [4.8-10.8 K/mcL] 4.8 K/mcL (01/09/23 5:00 PM) RBC [4.20-5.40 Million/mcL] 4.49 Million /mcL (01/09/23 5:00 PM) Neutro Auto [42.2-75.2 %] 62.5 % (01/09/23 5:00 PM) Lymph Auto [20.5-51.1 %] 25.7 % (01/09/23 5:00 PM) [place] Auto [1.7-9.3 %] 8.8 % (01/09/23 5:00 PM) Basophil Auto [0.0-0.8 %] 1.3 % *HI* (01/09/23 5:00 PM) BUN [8-26 mg/dL] 18 mg/dL (01/09/23 5:00 PM) Glucose Level [74-106 mg/dL] 115 mg/dL *HI* (01/09/23 5:00 PM) Potassium Level [3.5-5.1 mmol/L] 3.5 mmo l/L (01/09/23 5:00 PM) Baso Absolute [0.0-0.2 K/mcL] 0.1 K/mcL (01/09/23 5:00 PM) MCV [81.0-99.0 fL] 93.1 fL (01/09/23 5:00 PM) AST [15-41 IntlUnit/L] 28 IntlUnit/L (01/09/23 5:00 PM) ALT [14-54 IntlUnit/L] 23 IntlUnit/L (01/09/23 5:00 PM) MCHC [32.0-36.0 g/dL] 33.3 g/dL (01/09/23 5:00 PM) Osmolality [275-295 mOsm/kg] 271 mOsm/kg *LOW* (01/09/23 5:00 PM) Troponin-I [<=0.05 ng/mL] <0.01 ng/mL (01/09/23 5:00 PM) Sodium Level [134-143 mmol/L] 134 mmol/L (01/09/23 5:00 PM) Lymph Absolute [1.2-3.4 K/mcL] 1.2 K/mcL (01/09/23 5:00 PM) Hct [37.0-47.0 %] 41.8 % (01/09/23 5:00 PM) Calcium Level [8.9-10.3 mg/dL] 9.4 mg/dL (01/09/23 5:00 PM) [place] Absolute [0.1-0.6 K/mcL] 0.4 K/mcL (01/09/23 5:00 PM) Albumin Level [3.5-5.0 g/dL] 4.0 g/dL (5/17/23 5:00 PM) Protein Total [6.5-8.1 g/dL] 7.4 g/dL (01/09/23 5:00 PM) MCH [27.0-31.0 pg] 31.0 pg (01/09/23 5:00 PM) Magnesium Level [1.8-2.5 mg/dL] 2.2 mg/d L (01/09/23 5:00 PM) Neutro Absolute [1.4-6.5 K/mcL] 3.0 K/mc L (01/09/23 5:00 PM) Bilirubin Total [0.2-1.2 mg/dL] 0.7 mg/d L (01/09/23 5:00 PM) Hgb [12.0-16.0 g/dL] 13.9 g/dL (01/09/23 5:00 PM) Alk Phos [38-130 IntlUnit/L] 47 IntlUnit /L (01/09/23 5:00 PM) MPV [7.4-10.4 fL] 9.2 fL (01/09/23 5:00 PM) Platelets [130-400 K/mcL] 186 K/mcL (01/09/23 5:00 PM) CO2 [22-32 mmol/L] 30 mmol/L (01/09/23 5:00 PM) Eos Absolute [0.0-0.2 K/mcL] 0.1 K/mcL (01/09/23 5:00 PM) BNP [<=100 pg/mL] 35 pg/mL (01/09/23 5:00 PM) Chloride Level [98-111 mmol/L] 96 mmol/L *LOW* (01/09/23 5:00 PM) RDW-CV [11.5-14.5 %] 13.2 % (01/09/23 5:00 PM) A/G Ratio 1.2 *NA* (01/09/23 5:00 PM) BUN/Creat Ratio [8.0-20.0] 21.4 *HI* (01/09/23 5:00 PM) Globulin 3.4 *NA* (01/09/23 5:00 PM) Imm Gran Absolute 0.01 *NA* (01/09/23 5:00 PM) Imm Gran Auto [0.0-0.5 %] 0.2 % (01/09/23 5:00 PM) Slide Review Not Indicated (01/09/23 5:00 PM) Creatinine Level [0.44-1.00 mg/dL] 0.84 mg/dL (01/09/23 5:00 PM) Anion Gap [3.0-12.0] 8.0 (01/09/23 5:00 PM) Eos, Auto [0.00-3.00 %] 1.50 % (01/09/23 5:00 PM) eGFR CKD-EPI [>=60 mL/min/1.73 m2] 80 mL /min/1.73 m2 (01/09/23 5:00 PM) Radiology Reports * Exam Date Time Procedure Performing Provider Status 01/09/23 5:02 PM XR Chest 2 Views DomainUser, Generated ; Auth (Verified) Notes: (XR Chest 2 Views) Reason For Exam: Chest Pain XR Chest 2 Views EXAM DESCRIPTION: XR Chest 2 Views 01/09/2023 INDICATION: CHEST PAIN TECHNIQUE: PA and lateral views of the chest. COMPARISON: None available FINDINGS: The lungs are well expanded and clear with no focal consolidation or pulmonary edema. The cardiomediastinal contour and pleural margins are within normal limits. IMPRESSION: No active chest disease. JOB #: [id number] Final Signed by: Mykel Barkley MD Signed (Electronic Signature): 01/09/2023 7:31 pm Vital Signs Most recent to oldest [Reference Range]: 1 2 3 Temperature Temporal Artery [36-38 Deg C] 36 Deg C (01/09/23 4:39 PM) Peripheral Pulse Rate [60-100 bpm] 63 bpm (01/09/23 6:30 PM) 55 bpm *LOW* (01/09/23 6:00 PM) 57 bpm *LOW* (01/09/23 5:45 PM) Heart Rate Monitored [60-100 bpm] 63 bpm (01/09/23 6:30 PM) 55 bpm *LOW* (01/09/23 6:00 PM) 57 bpm *LOW* (01/09/23 5:45 PM) Respiratory Rate [12-24 br/min] 10 br/min *LOW* (01/09/23 6:30 PM) 16 br/min (01/09/23 6:00 PM) 16 br/min (01/09/23 5:45 PM) Blood Pressure [90-140/60-90 mmHg] 116/72mmHg (01/09/23 6:30 PM) 110/70mmHg (01/09/23 6:00 PM) 117/71mmHg (01/09/23 5:45 PM) Mean Arterial Pressure Cuff 85 mmHg (01/09/23 6:30 PM) 82 mmHg (01/09/23 6:00 PM) 85 mmHg (01/09/23 5:45 PM) Weight Dosing 65.00 kg (01/09/23 5:00 PM) Weight Estimated 65.00 kg (01/09/23 4:39 PM) Height/Length Dosing 173.000 cm (01/09/23 5:00 PM) Height/Length Estimated 173.000 cm (01/09/23 4:39 PM) Social History Social History Type Response Tobacco Never tobacco user T obacco Use:. Sex Hospital Discharge Instructions Patient Education 01/09/2023 16:23:39 Nonspecific Chest Pain, Adult Nonspecific Chest Pain, Adult Chest pain is an uncomfortable, tight, or painful feeling in the chest. The pain can feel like a crushing, aching, or squeezing pressure. A person can feel a burning or tingling sensation. Chest paincan also be felt in your back, neck, jaw, shoulder, or arm. This pain can be worse when you move, sneeze, or take a deep breath. Chest pain can be caused by a condition that is life-threatening. This must be treated right away. It can also be caused by something that is not life- threatening. If you have chest pain, it can be hard to know the difference, so it is important to get help right away to make sure that you do not have a serious condition. Some life-threatening causes of chest pain include: ??? Heart attack. ??? A tear in the body's main blood vessel (aortic dissection). ??? Inflammation around your heart (pericarditis). ??? A problem in the lungs, such as a blood clot (pulmonary embolism) or a collapsed lung (pneumothorax). Some non life-threatening causes of chest pain include: ??? Heartburn. ??? Anxiety or stress. ??? Damage to the bones, muscles, and cartilage that make up your chest wall. ??? Pneumonia or bronchitis. ??? Shingles infection (varicella-zoster virus). Your chest pain may come and go. It may also be constant. Your health care provider will do tests and other studies to find the cause of your pain. Treatment will depend on the cause of your chest pain. Follow these instructions at home: Medicines ??? Take tklx-sii-bbvvlcv and prescription medicines only as told by your health care provider. ??? If you were prescribed an antibiotic medicine, take it as told by your health care provider. Donot stop taking the antibiotic even if you start to feel better. Activity ??? Avoid any activities that cause chest pain. ??? Do not lift anything that is heavier than 10 lb (4.5 kg), or the limit that you are told, untilyour health care provider says that it is safe. ??? Rest as directed by your health care provider. ??? Return to your normal activities only as told by your health care provider. Ask your health care provider what activities are safe for you. Lifestyle ??? Do not use any products that contain nicotine or tobacco, such as cigarettes, e-cigarettes, andchewing tobacco. If you need help quitting, ask your health care provider. ??? Do not drink alcohol. ??? Make healthy lifestyle changes as recommended. These may include: ??? Getting regular exercise. Ask your health care provider to suggest some exercises that are safefor you. ??? Eating a heart-healthy diet. This includes plenty of fresh fruits and vegetables, whole grains,low-fat (lean) protein, and low-fat dairy products. A dietitian can help you find healthy eating options. ??? Maintaining a healthy weight. ??? Managing any other health conditions you may have, such as high blood pressure (hypertension) or diabetes. ??? Reducing stress, such as with yoga or relaxation techniques. General instructions ??? Pay attention to any changes in your symptoms. ??? It is up to you to get the results of any tests that were done. Ask your health care provider, or the department that is doing the tests, when your results will be ready. ??? Keep all follow-up visits as told by your health care provider. This is important. ??? You may be asked to go for further testing if your chest pain does not go away. Contact a health care provider if: ??? Your chest pain does not go away. ??? You feel depressed. ??? You have a fever. ??? You notice changes in your symptoms or develop new symptoms. Get help right away if: ??? Your chest pain gets worse. ??? You have a cough that gets worse, or you cough up blood. ??? You have severe pain in your abdomen. ??? You faint. ??? You have sudden, unexplained chest discomfort. ??? You have sudden, unexplained discomfort in your arms, back, neck, or jaw. ??? You have shortness of breath at any time. ??? You suddenly start to sweat, or your skin gets clammy. ??? You feel nausea or you vomit. ??? You suddenly feel lightheaded or dizzy. ??? You have severe weakness, or unexplained weakness or fatigue. ??? Your heart begins to beat quickly, or it feels like it is skipping beats. These symptoms may represent a serious problem that is an emergency. Do not wait to see if the symptoms will go away. Get medical help right away. Call your local emergency services (911 in the [place] Do not drive yourself to the hospital. Summary ??? Chest pain can be caused by a condition that is serious and requires urgent treatment. It may also be caused by something that is not life-threatening. ??? Your health care provider may do lab tests and other studies to find the cause of your pain. ??? Follow your health care provider's instructions on taking medicines, making lifestyle changes, and getting emergency treatment if symptoms become worse. ??? Keep all follow-up visits as told by your health care provider. This includes visits for any further testing if your chest pain does not go away. This information is not intended to replace advice given to you by your health care provider. Make sure you discuss any questions you have with your health care provider. Document Revised: 10/26/2021 Document Reviewed: 10/26/2021 [employer] Patient Education ?? 2021 [employer]. Follow Up Care 01/09/2023 16:39:35 With:Tong Norman MD Address: When:1 to 2 weeks Discharge instructions * Event Display: Discharge Instructions Physician Emergency department Note * Alvino Lira DO: PERFORM, MODIFY Event Display: ED Note Physician Authored Date: [id number] JESSICA GTZ :1965 Age:57 years Sex:Female Visit Date:01/09/2023 Basic Information Time Seen: Alvino Lira DO / 01/09/2023 16:40 Chief Complaint pt reports chest pain and SOB on exertion for 2 days History Of Present Illness: This is a pleasant 57-year-old female PMH long-COVID syndrome who presents to the emergency department due to concerns of hypoxia and tachycardia. ??She states she has been followed by??[facility]pulmonology for long-COVID syndrome.?? She states she has episodes where she will become profoundly hypoxic in the 50s with exertional dyspnea??and associated??tachyarrhythmia at x280 bpm. ??She recently reports having??a sinus infection approximately 3 weeks ago that is self resolved without intervention. ??She wondered whether or not the sinus infection was a contributing factor. ??She reached out toDr. Norman??who??wanted her to come to the emergency department just to be evaluated.?? She states ye sterday she had some difficulties with saturations in the 70s although reports that she knows its that low just based upon symptomatology.?? She at present time is feeling quite well at rest??in the semi-gonzalez position. Review of Systems: CONSTITUTIONAL: _No weight loss, fever, chills, weakness or fatigue SKIN: _No rash, no itching, no jaundice EYES: _No visual loss, blurred vision, double vision or scleral icterus ENT: _No ear pain; patent nares without bleeding or congestion; no sore throat CARDIOLOGY: _No chest pain, No edema, No palpitations PULMONOLOGY: _No pleuritic chest pain, No [id number], No cough, No hemoptysis ABDOMEN:_no nausea, no vomiting, no abdominal pain, no melena, no hematochezia :_no dysuria, no urinary frequency, no urinary urgency NEURO:_No focal neurological deficit, no headache, no dizziness ?? REST OF REVIEW OF SYSTEMS IS NEGATIVE PERTAINS TO CHIEF COMPLAINT Physical Exam Vitals & Measurements T:??36?C ??(Temporal Artery)?? HR:??70??(Peripheral)?? RR:??18?? SpO2:??100%?? HT:??173.000??cm?? WT:??65.00??kg??(Estimated)?? Pain Score:??5?? O2 Therapy:??Room air?? GENERAL: This is a mildly anxious older female in no cardiopulmonary distress. SKIN: Warm and dry. No rash. HEENT: Normocephalic, atraumatic. ??PERRLA, EOMI, no conjunctival injection, no scleral icterus. ??TMs not examined. ??Nares are without congestion or rhinorrhea. ??No posterior pharyngeal erythema or tonsillar exudate. ??Dentition grossly intact. ??Mucous membranes are moist. NECK: Supple. No JVD. HEART: Regular rate and rhythm. ??S1 and S2. No murmur. LUNGS: Clear to auscultation bilaterally. ??No respiratory distress. ABDOMEN: Non-distended, non-tender without guarding, rebound or rigidity. ??Gallagher sign negative. ??No McBurney's point tenderness. ??Psoas negative. ??Obturator negative. ??Rovsing sign negative. EXTREMITIES: No unilateral leg swelling or posterior calf tenderness. No edema. NEUROLOGIC: GCS 15. CN III-XII intact without acute focal neurological deficit. Medical Decision Making: Transient reported hypoxia and tachyarrhythmia in the setting of long COVID??syndrome.?? Currently in the emergency department hemodynamically stable with heart rate at 62 bpm, blood pressure??127/74saturating 100% on room air without respiratory distress.?? She currently is??asymptomatic??and slightly anxious.?? Will obtain screening laboratory work-up, EKG/troponin testing, and chest x-ray. Procedure No Qualifying Data Reexamination/Reevaluation 6:20 PM: At this point there is no definitive etiology for the patient's??symptoms other than??historical findings of long COVID 19 syndrome. ??There is no objective evidence of acute ischemia or infarction on EKG or troponin testing. ??Normal chest x-ray makes pneumonia, pneumothorax, aortic or other intrathoracic abnormalities much less likely. ??Otherwise screening laboratory work-up was unremarkable. ??Based on the history, physical and diagnostic studies, I think the patient is low risk for life threatening cardiopulmonary events. I have considered ACS, pulmonary embolism, dissection, pneumothorax, esophageal pathology, chest wall syndrome, GERD, pleurisy etc. The patient understands she needs to keep her appointment with Dr. Norman ([facility] pulmonology) on Saturday as previously scheduled.??She understands??she needs to return to the ED immediately for any worsening symptoms, recurrent chest pain, difficulty breathing, passing out or other concerns. She is also to return to the ED if they cannot see a physician and have other concerns. Assessment/Plan 1.??Chest pain??R07.9 2.??COVID-19 long hauler??U09.9 Orders: nitroglycerin 0.4 mg sublingual tablet, 0.4 mg = 1 tab, SL, Tab-SL, every 5 min, PRN chest pain, First Dose: 01/09/23 16:44:00 EDT Normal Saline Flush, 10 mL, IV Flush, Injection, As Directed, PRN brake reliner, First Dose: 01/09/23 16:45:00 EDT, Routine Troponin-I, Blood, Timed Study, 01/09/23 19:44:00 EDT, Once, Nurse collect Vital Signs, 01/09/23 16:44:00 EDT, Constant order, Q15min until stable and SBP greater than 90, then Q1hour XR Chest 2 Views, 01/09/23 16:44:00 EDT, Stat, Reason: Chest Pain, Transport Mode: Stretcher, Once Patient Education Nonspecific Chest Pain, Adult Follow Up With When Contact Information Tong Norman MD Within 1 to 2 weeks Additional Instructions: Medication Reconciliation Unchanged azelastine nasal (azelastine 137 mcg/inh (0.1%) nasal spray)1 Sprays Nasal (into the nose) 2 times a day. Refills: 1. Problem List/Past Medical History Ongoing No chronic problems Historical No qualifying data Medication Administration Given aspirin, 324 mg, Oral Allergies No Known Medication Allergies Social History Electronic Cigarette/Vaping Electronic Cigarette Use: Never. Tobacco Never tobacco user Tobacco Use:. Family History Non-Contributory Diagnostic Results Two-View CXR: No active chest disease ECG EKG 4:46 PM:??Normal sinus rhythm at 64 bpm; normal axis; normal intervals;??septal Q waves;??no objective evidence of acute infarction Lab Results CBC and Differential?? LATEST RESULTS?? WBC?? 01/09/23 17:00?? 4.8?? RBC?? 01/09/23 17:00?? 4.49?? Hgb?? 01/09/23 17:00?? 13.9?? Hct?? 01/09/23 17:00?? 41.8?? MCV?? 01/09/23 17:00?? 93.1?? MCH?? 01/09/23 17:00?? 31.0?? MCHC?? 01/09/23 17:00?? 33.3?? RDW-CV?? 01/09/23 17:00?? 13.2?? Platelets?? 01/09/23 17:00?? 186?? MPV?? 01/09/23 17:00?? 9.2?? Neutro Auto?? 01/09/23 17:00?? 62.5?? Lymph Auto?? 01/09/23 17:00?? 25.7?? [place] Auto?? 01/09/23 17:00?? 8.8?? Eos, Auto?? 01/09/23 17:00?? 1.50?? Basophil Auto?? 01/09/23 17:00?? 1.3 ??High?? Imm Gran Auto?? 01/09/23 17:00?? 0.2?? Neutro Absolute?? 01/09/23 17:00?? 3.0?? Lymph Absolute?? 01/09/23 17:00?? 1.2?? [place] Absolute?? 01/09/23 17:00?? 0.4?? Eos Absolute?? 01/09/23 17:00?? 0.1?? Baso Absolute?? 01/09/23 17:00?? 0.1?? Imm Gran Absolute?? 01/09/23 17:00?? 0.01?? Slide Review?? 01/09/23 17:00?? Not Indicated? Routine Chemistry?? LATEST RESULTS?? Sodium Level?? 01/09/23 17:00?? 134?? Potassium Level?? 01/09/23 17:00?? 3.5?? Chloride Level?? 01/09/23 17:00?? 96 ??Low?? CO2?? 01/09/23 17:00?? 30?? Alk Phos?? 01/09/23 17:00?? 47?? AST?? 01/09/23 17:00?? 28?? ALT?? 01/09/23 17:00?? 23?? BUN?? 01/09/23 17:00?? 18?? Glucose Level?? 01/09/23 17:00?? 115 ??High?? Creatinine Level?? 01/09/23 17:00?? 0.84?? BUN/Creat Ratio?? 01/09/23 17:00?? 21.4 ??High?? Calcium Level?? 01/09/23 17:00?? 9.4?? Protein Total?? 01/09/23 17:00?? 7.4?? Albumin Level?? 01/09/23 17:00?? 4.0?? Globulin?? 01/09/23 17:00?? 3.4?? A/G Ratio?? 01/09/23 17:00?? 1.2?? Bilirubin Total?? 01/09/23 17:00?? 0.7?? Anion Gap?? 01/09/23 17:00?? 8.0?? Magnesium Level?? 01/09/23 17:00?? 2.2?? Osmolality?? 01/09/23 17:00?? 271 ??Low?? eGFR CKD-EPI?? 01/09/23 17:00?? 80? Cardiac Isoenzymes?? LATEST RESULTS?? Troponin-I?? 01/09/23 17:00?? <0.01?? BNP?? 01/09/23 17:00?? 35? Electronically Signed on 01/09/23 06:25 PM Alvino Lira DO Emergency department Discharge instructions * Alvino Lira DO: PERFORM Event Display: ED Discharge Information Authored Date: [id number] JESSICA GTZ :1965 Age:57 years Sex:Female Visit Date:01/09/2023 Discharge Instructions We would like to thank you for allowing us to assist you with your healthcare needs. The following includes patient education materials and information regarding your injury/illness. Diagnosis from Today's Visit Chest pain COVID-19 long hauler Discharge Vitals Temperature??(Temporal Artery) 96.8 ??F (36 ??C) Heart Rate??(Peripheral) 70 Respiratory Rate?? 18 Blood Pressure?? 127/74?? Height?? 68.11 in (173.000 cm) Weight??(Estimated) 143.33 lb (65.00 kg) Allergies No Known Medication Allergies What to Do Next Instructions from Your Care Team Your work-up in the emergency department fortunately was unremarkable and reassuring.?? Chest x-raydid not demonstrate any evidence of pneumothorax (collapsed lung), pneumonia, aortic??or other??lung pathology. ??Your EKG??was??normal. ??Laboratory work-up was also reassuring.?? I was unable to ascertain exactly what the underlying cause of your reported hypoxia and tachycardia is??although you reported you have follow-up with Dr. Norman??on Saturday.?? Please discussed with him about negative inspiratory pressure as you can only hold 1500 mL of??air on the??incentive spirometer.?? Further testing may be necessary??to ascertain your ability to take deep breaths.?? Return to the emergency department any new or worsening symptoms or for any concerns you may have. You Need to Schedule the Following Appointments Follow Up with??Tong Norman MD When:??Within 1 to 2 weeks You were treated today on an emergency basis; it may be dominguez to contact your primary care provider to notify them of your visit today. You may have been referred to your regular doctor or a specialist, please follow up as instructed. If your condition worsens or you can't get in to see the doctor, contact the Emergency Department. Medications What How Much When Instructions Next Dose Unchanged azelastine nasal (azelastine 137 mcg/ inh (0.1%) nasal spray) 1 Sprays Nasal (into the nose) 2 times a day Education Materials Nonspecific Chest Pain, Adult Chest pain is an uncomfortable, tight, or painful feeling in the chest. The pain can feel like a crushing, aching, or squeezing pressure. A person can feel a burning or tingling sensation. Chest paincan also be felt in your back, neck, jaw, shoulder, or arm. This pain can be worse when you move, sneeze, or take a deep breath. Chest pain can be caused by a condition that is life-threatening. This must be treated right away. It can also be caused by something that is not life- threatening. If you have chest pain, it can be hard to know the difference, so it is important to get help right away to make sure that you do not have a serious condition. Some life-threatening causes of chest pain include: ? Heart attack. ? A tear in the body's main blood vessel (aortic dissection). ? Inflammation around your heart (pericarditis). ? A problem in the lungs, such as a blood clot (pulmonary embolism) or a collapsed lung (pneumothorax). Some non life-threatening causes of chest pain include: ? Heartburn. ? Anxiety or stress. ? Damage to the bones, muscles, and cartilage that make up your chest wall. ? Pneumonia or bronchitis. ? Shingles infection (varicella-zoster virus). Your chest pain may come and go. It may also be constant. Your health care provider will do tests and other studies to find the cause of your pain. Treatment will depend on the cause of your chest pain. Follow these instructions at home: Medicines ? Take jinu-qla-deioogt and prescription medicines only as told by your health care provider. ? If you were prescribed an antibiotic medicine, take it as told by your health care provider. Do notstop taking the antibiotic even if you start to feel better. Activity ? Avoid any activities that cause chest pain. ? Do not lift anything that is heavier than 10 lb (4.5 kg), or the limit that you are told, until your health care provider says that it is safe. ? Rest as directed by your health care provider. ? Return to your normal activities only as told by your health care provider. Ask your health care provider what activities are safe for you. Lifestyle ? Do not use any products that contain nicotine or tobacco, such as cigarettes, e- cigarettes, and chewing tobacco. If you need help quitting, ask your health care provider. ? Do not drink alcohol. ? Make healthy lifestyle changes as recommended. These may include: ? Getting regular exercise. Ask your health care provider to suggest some exercises that are safe foryou. ? Eating a heart-healthy diet. This includes plenty of fresh fruits and vegetables, whole grains, low-fat (lean) protein, and low-fat dairy products. A dietitian can help you find healthy eating options. ? Maintaining a healthy weight. ? Managing any other health conditions you may have, such as high blood pressure (hypertension) or diabetes. ? Reducing stress, such as with yoga or relaxation techniques. General instructions ? Pay attention to any changes in your symptoms. ? It is up to you to get the results of any tests that were done. Ask your health care provider, or the department that is doing the tests, when your results will be ready. ? Keep all follow-up visits as told by your health care provider. This is important. ? You may be asked to go for further testing if your chest pain does not go away. Contact a health care provider if: ? Your chest pain does not go away. ? You feel depressed. ? You have a fever. ? You notice changes in your symptoms or develop new symptoms. Get help right away if: ? Your chest pain gets worse. ? You have a cough that gets worse, or you cough up blood. ? You have severe pain in your abdomen. ? You faint. ? You have sudden, unexplained chest discomfort. ? You have sudden, unexplained discomfort in your arms, back, neck, or jaw. ? You have shortness of breath at any time. ? You suddenly start to sweat, or your skin gets clammy. ? You feel nausea or you vomit. ? You suddenly feel lightheaded or dizzy. ? You have severe weakness, or unexplained weakness or fatigue. ? Your heart begins to beat quickly, or it feels like it is skipping beats. These symptoms may represent a serious problem that is an emergency. Do not wait to see if the symptoms will go away. Get medical help right away. Call your local emergency services (911 in the [place] Do not drive yourself to the hospital. Summary ? Chest pain can be caused by a condition that is serious and requires urgent treatment. It may also be caused by something that is not life-threatening. ? Your health care provider may do lab tests and other studies to find the cause of your pain. ? Follow your health care provider's instructions on taking medicines, making lifestyle changes, and getting emergency treatment if symptoms become worse. ? Keep all follow-up visits as told by your health care provider. This includes visits for any further testing if your chest pain does not go away. This information is not intended to replace advice given to you by your health care provider. Make sure you discuss any questions you have with your health care provider. Document Revised: 10/26/2021 Document Reviewed: 10/26/2021 [employer] Patient Education ?? 2021 [employer] Tests Performed Medications and Immunizations Administered Given aspirin, 324 mg, Oral Lab Test Name Test Result Date/Time Slide Review Not Indicated 01/09/2023 17:00 EDT WBC 4.8 K/mcL 01/09/2023 17:00 EDT RBC 4.49 Million/mcL 01/09/2023 17:00 EDT Hgb 13.9 g/dL 01/09/2023 17:00 EDT Hct 41.8 % 01/09/2023 17:00 EDT MCV 93.1 fL 01/09/2023 17:00 EDT MCH 31.0 pg 01/09/2023 17:00 EDT MCHC 33.3 g/dL 01/09/2023 17:00 EDT RDW-CV 13.2 % 01/09/2023 17:00 EDT Platelets 186 K/mcL 01/09/2023 17:00 EDT MPV 9.2 fL 01/09/2023 17:00 EDT Neutro Auto 62.5 % 01/09/2023 17:00 EDT Lymph Auto 25.7 % 01/09/2023 17:00 EDT [place] Auto 8.8 % 01/09/2023 17:00 EDT Eos, Auto 1.50 % 01/09/2023 17:00 EDT Basophil Auto 1.3 % 01/09/2023 17:00 EDT Imm Gran Auto 0.2 % 01/09/2023 17:00 EDT Neutro Absolute 3.0 K/mcL 01/09/2023 17:00 EDT Lymph Absolute 1.2 K/mcL 01/09/2023 17:00 EDT [place] Absolute 0.4 K/mcL 01/09/2023 17:00 EDT Eos Absolute 0.1 K/mcL 01/09/2023 17:00 EDT Baso Absolute 0.1 K/mcL 01/09/2023 17:00 EDT Imm Gran Absolute 0.01 01/09/2023 17:00 EDT Sodium Level 134 mmol/L 01/09/2023 17:00 EDT Potassium Level 3.5 mmol/L 01/09/2023 17:00 EDT Chloride Level 96 mmol/L 01/09/2023 17:00 EDT CO2 30 mmol/L 01/09/2023 17:00 EDT Alk Phos 47 IntlUnit/L 01/09/2023 17:00 EDT AST 28 IntlUnit/L 01/09/2023 17:00 EDT ALT 23 IntlUnit/L 01/09/2023 17:00 EDT BUN 18 mg/dL 01/09/2023 17:00 EDT Glucose Level 115 mg/dL 01/09/2023 17:00 EDT Creatinine Level 0.84 mg/dL 01/09/2023 17:00 EDT BUN/Creat Ratio 21.4 01/09/2023 17:00 EDT Calcium Level 9.4 mg/dL 01/09/2023 17:00 EDT Protein Total 7.4 g/dL 01/09/2023 17:00 EDT Albumin Level 4.0 g/dL 01/09/2023 17:00 EDT Globulin 3.4 01/09/2023 17:00 EDT A/G Ratio 1.2 01/09/2023 17:00 EDT Bilirubin Total 0.7 mg/dL 01/09/2023 17:00 EDT Anion Gap 8.0 01/09/2023 17:00 EDT Magnesium Level 2.2 mg/dL 01/09/2023 17:00 EDT Osmolality 271 mOsm/kg 01/09/2023 17:00 EDT eGFR CKD-EPI 80 mL/min/1.73 m2 01/09/2023 17:00 EDT Troponin-I <0.01 ng/mL 01/09/2023 17:00 EDT BNP 35 pg/mL 01/09/2023 17:00 EDT Patient/Intake Counselor Signature Patient Name:JESSICA GTZ I have received this information and my questions have been answered. Patient/Intake Counselor Name: Patient/Intake Counselor Signature: Relationship to Patient: Witness Name/Signature: Date: Electronically Signed on: 01/09/2023 18:25 EDTSigned by:KENROY XR Chest 2 Views * Mykel Barkley MD: VERIFY, VERIFY Event Display: Report EXAM DESCRIPTION: XR Chest 2 Views 01/09/2023 INDICATION: CHEST PAIN TECHNIQUE: PA and lateral views of the chest. COMPARISON: None available FINDINGS: The lungs are well expanded and clear with no focal consolidation or pulmonary edema. The cardiomediastinal contour and pleural margins are within normal limits. IMPRESSION: No active chest disease. JOB #: [id number] Final Signed by: Mykel Barkley MD Signed (Electronic Signature): 01/09/2023 7:31 pm Patient Care team information Care Team Personnel Name: Alvino Lira DO Position: Physician Member Role: Attending Physician Address: Address: [address] [place] [id number] Name: Cordelia Bay I Position: Nurse Member Role: ED Nurse Care Team Related Persons Name: LYNDA GTZ
--- OUTSIDE RECORDS SUMMARY | 2024-03-02 02:46 | XMS_ITS | Continuity of Care Document ---
Author Name Unknown Organization [facility] Address [address] [place] [address] Care Team Providers Care Truss Designer Name Role Phone ELKINBAKARI Moss Primary Care Physician Encounter [facility] NBR [id number] Date(s): 02/06/24 - 02/06/[address] [address]- Discharge Disposition: Home or Self Care Attending Physician: АЛЕКСАНДР Holder Admitting Physician: АЛЕКСАНДР Holder Referring Physician: АЛЕКСАНДР Holder Allergies, Adverse Reactions, Alerts Substance Reaction Severity [...] 0.1 mg/g vaginal cream 2 g, Vaginal, Start Date: 12/05/23 Status: Ordered Estradiol Patch [...] Confirmed Active Chronic insomnia Confirmed Active 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 Cognitive impairment 1 Confirmed [...] of right knee Confirmed Active 1followed by [facility] neuro on meds Procedures Procedure Date Related Diagnosis Body Site Status Arthroscopy Knee (Right) 1 12/11/23 Completed Arthroscopy of knee Compl eted Arthroscopy of shoulder C ompleted Bunionectomy Completed 1auto-populated from documented surgical case Results Radiology Reports * Exam Date Time Procedure Performing Provider Status 02/06/24 11:57 AM XR Shoulder Complete 2+ Views Left Pawan Maher; Auth (Verified) Notes: (XR Shoulder Complete 2+ Views Left) Reason For Exam: Left shoulder pain XR Shoulder Complete 2+ Views Left EXAM DESCRIPTION: XR Shoulder Complete 2+ Views Left 02/06/2024 INDICATION: LEFT SHOULDER PAIN COMPARISON: 12/31/2019 IMPRESSION: Mild widening of the AC joint space which appears new since remote examination. This may reflect AC separation of uncertain age or sequela of previous surgery. Otherwise no acute fracture or dislocation. No significant glenohumeral joint arthritic changes. Postsurgical changes in the proximal left humerus most consistent with previous biceps tenodesis. JOB #: [id number] Final Signed by: Mykel Barkley MD Signed (Electronic Signature): 02/06/2024 12:20 pm Social History Social History Type Response Tobacco Never tobacco user T obacco Use:. Sex Patient Care team information Care Team Personnel Name: BAKARI PATEL Position: No Access Member Role: Primary Care Physician Address: Address: [address] [place] [address]- [place] Care Team Related Persons Name: LYNDA GTZ
--- OUTSIDE RECORDS SUMMARY | 2024-03-02 02:46 | XMS_ITS | Continuity of Care Document ---
Author Name Unknown Organization [facility] Address [address] [place] [address] Care Team Providers Care Captain Room Service Name Role Phone BAKARI PATEL Primary Care Physician Encounter [facility] NBR [id number] Date(s): 10/29/23 - 10/29/23 [facility] [address] [place], [place] [address] Encounter Diagnosis Tear of lateral meniscus of right knee(Discharge Diagnosis) - 10/30/23 Right patellofemoral syndrome(Discharge Diagnosis) - 10/30/23 Chondromalacia of right knee(Discharge Diagnosis) - 10/30/23 Discharge Disposition: Home or Self Care Attending Physician: АЛЕКСАНДР Holder Referring Physician: BAKARI PATEL Allergies, Adverse Reactions, Alerts No Known Medication Allergies Substance Reaction Severity Status Animal Dander Unknown Active Mold Unknown Unknown Active Environmental Smoke Unknown Unknown Active Tree Pollen Unknown Unknown Active Seasonal Unknown Unknown Active Assessment and Plan Extracted from: Title:[place] right knee H&P Author:АЛЕКСАНДР Holder Date:10/30/23 1.??Tear of lateral meniscus of right knee??S83.281A 2.??Right patellofemoral syndrome??M22.2X1 3.??Chondromalacia of right knee??M94.261 The patient comes in today with right knee pain, swelling, and instability due to a lateral meniscus tear in the setting of patellofemoral syndrome and chondromalacia??status post a tibial tubercle transfer in the past.?? As she is getting mechanical symptoms that have not gotten better with conservative management, we discussed other options such as injections,??patellofemoral bracing, or surgery.?? The surgery would include a right knee arthroscopy with partial lateral meniscectomy, shaving chondroplasty, and??lateral release. ??The benefits, risk, complications, and postoperative course were described the patient at length. ??She is in agreement and wishes to proceed. ?? We went over use of narcotics postoperatively. ??We will use the smallest dose for the shortest period of time for their acute postoperative pain only. ??This will be in addition to icing, Tylenol, physical therapy, and bracing. ??We will obtain consent and do a risk assessment tool. ??We will also need to check the PDMP as needed. ?? The provider(s) are only credentialed at [facility]. ??This is an outpatient procedure. ??There are no ambulatory surgery centers within this hospital system or our geographic region. ? Future Scheduled Tests Radiology* MRI Knee w/o Contrast Right 10/10/23 Medications Cami 24 Hour Allergy oral tablet 180 mg = 1 tab, Oral, Daily, # 30 tab, 0 Refill(s) Start Date: 10/29/23 Status: Ordered azelastine 137 mcg/inh (0.1%) nasal spray 137 mcg 1 sprays, Nasal, BID, # 1 EA, 1 Refill(s) Start Date: 06/13/22 Status: Ordered galantamine 12 mg oral tablet 180 EA, 0 Refill(s), TAKE ONE TABLET BY MOUTH TWICE A DAY, ADMINISTER WITH MORNING AND EVENING MEALS, 0 Refill(s) Start Date: 10/29/23 Status: Ordered glucosamine 0 Refill(s) Start Date: 10/10/23 Status: Ordered hydroCHLOROthiazide 12.5 mg oral capsule 12.5 mg = 1 cap, Oral, Daily, # 30 cap, 0 Refill(s) Start Date: 10/10/23 Status: Ordered ipratropium 21 mcg/inh (0.03%) nasal spray 2 sprays, !-Nasal, BID, # 30 mL, 0 Refill(s) Start Date: 10/29/23 Status: Ordered MagneBind 400 0 Refill(s) Start Date: 10/10/23 Status: Ordered memantine 5 mg oral tablet 5 mg = 1 tab, Oral, BID, # 30 tab, 0 Refill(s) Start Date: 10/10/23 Status: Ordered Multi Vitamin+ 0 Refill(s) Start Date: 10/10/23 Status: Ordered sertraline 100 mg oral tablet 100 mg = 1 tab, Oral, Daily, # 30 tab, 0 Refill(s) Start Date: 10/10/23 Status: Ordered sertraline 25 mg oral tablet 25 mg = 1 tab, Oral, Daily, WITH 50 MG TAB, # 30 tab, 0 Refill(s) Start Date: 10/29/23 Status: Ordered sertraline 50 mg oral tablet 50 mg = 1 tab, Oral, Daily, WITH 25 MG TAB, # 30 tab, 0 Refill(s) Start Date: 10/29/23 Status: Ordered Singulair 10 mg oral tablet 10 mg = 1 tab, Oral, Daily, 0 Refill(s) Start Date: 10/29/23 Status: Ordered Problem List Condition Confirmation Course Effective Dates Status H ealth Status Informant Allergic rhinitis Confirmed Active Asthma Confirmed Active Chondromalacia of right knee Confirmed Active Chronic [id number] syndrome Confirmed Active Internal derangement of right knee Confirmed Active Right patellofemoral syndrome Confirmed Active Tear of lateral meniscus of right knee Confirmed Active Vital Signs Most recent to oldest [Reference Range]: 1 Blood Pressure [90-140/60-90 mmHg] 108/6 6mmHg (10/29/23 9:55 AM) Mean Arterial Pressure, Cuff [65-140 mmH g] 80 mmHg (10/29/23 9:55 AM) Weight 61.23 kg (10/29/23 9:55 AM) Weight Measured (lbs) 134.989 lb (10/29/23 9:55 AM) Weight Dosing 61.230 kg (10/29/23 9:55 AM) Height 172.72 cm (10/29/23 9:55 AM) Height/Length Measured (inches) 68 inch (10/29/23 9:55 AM) BSA Measured 1.71 m2 (10/29/23 9:55 AM) Body Mass Index 20.52 kg/m2 (10/29/23 9:55 AM) Social History Social History Type Response Tobacco Never tobacco user T obacco Use:. Sex Physician Outpatient Note * АЛЕКСАНДР Holder: PERFORM Event Display: Office Clinic Note Physician Authored Date: [id number] JESSICA GTZ :1965 Age:58 years Sex:Female Visit Date:10/29/2023 Primary Care Physician: BAKARI PATEL Chief Complaint RIGHT KNEE History of Present Illness The patient comes in today with continued right knee pain and??instability. ??Her knee continues toswell.?? She has pain in the front of her knee as well as laterally and in the back??she has tried conservative management without relief. ??An MRI was ordered and she is here today for follow-up.?? She has been using anti-inflammatories??at prescription level strength to address this along with ice and activity modifications.?? Bracing has not been helpful. Review of Systems Other than the HPI today is unremarkable Physical Exam Vitals & Measurements BP:??108/66?? HT:??172.72??cm?? WT:??61.23??kg?? BMI:??20.52?? Pain Score:??4?? BSA:??1.71?? General: Alert and oriented x3, pleasant cooperative, in no acute distress, appears to be their stated age, is generally fit appearing.? Right knee:??Moderate effusion. ??Well-healed postoperative incision.?? Medial and lateral joint line tenderness with painful Chey's. ??Terminal ends of flexion are painful??throughout her knee. ??Stable anteriorly and posteriorly. ??Negative varus and valgus stress testing.?? Positive patellofemoral grind testing. ?? Cardiovascular: Regular rate and rhythm ?? Respiratory: Clear to auscultation bilaterally. Assessment/Plan 1.??Tear of lateral meniscus of right knee??S83.281A 2.??Right patellofemoral syndrome??M22.2X1 3.??Chondromalacia of right knee??M94.261 The patient comes in today with right knee pain, swelling, and instability due to a lateral meniscus tear in the setting of patellofemoral syndrome and chondromalacia??status post a tibial tubercle transfer in the past.?? As she is getting mechanical symptoms that have not gotten better with conservative management, we discussed other options such as injections,??patellofemoral bracing, or surgery.?? The surgery would include a right knee arthroscopy with partial lateral meniscectomy, shaving chondroplasty, and??lateral release. ??The benefits, risk, complications, and postoperative course were described the patient at length. ??She is in agreement and wishes to proceed. ?? We went over use of narcotics postoperatively. ??We will use the smallest dose for the shortest period of time for their acute postoperative pain only. ??This will be in addition to icing, Tylenol, physical therapy, and bracing. ??We will obtain consent and do a risk assessment tool. ??We will alsoneed to check the PDMP as needed. ?? The provider(s) are only credentialed at [facility]. ??This is an outpatient procedure. ??There are no ambulatory surgery centers within this hospital system or our geographic region. Problem List/Past Medical History Ongoing Allergic rhinitis Asthma Chondromalacia of right knee Chronic [id number] syndrome Internal derangement of right knee Right patellofemoral syndrome Tear of lateral meniscus of right knee Historical No qualifying data Medications Cami 24 Hour Allergy oral tablet, 180 mg= 1 tab, Oral, Daily azelastine 137 mcg/inh (0.1%) nasal spray, 137 mcg= 1 sprays, !-Nasal, BID, 1 refills galantamine 12 mg oral tablet glucosamine hydroCHLOROthiazide 12.5 mg oral capsule, 12.5 mg= 1 cap, Oral, Daily ipratropium 21 mcg/inh (0.03%) nasal spray, 2 sprays, !-Nasal, BID MagneBind 400 memantine 5 mg oral tablet, 5 mg= 1 tab, Oral, BID Multi Vitamin+ sertraline 100 mg oral tablet, 100 mg= 1 tab, Oral, Daily sertraline 25 mg oral tablet, 25 mg= 1 tab, Oral, Daily sertraline 50 mg oral tablet, 50 mg= 1 tab, Oral, Daily Singulair 10 mg oral tablet, 10 mg= 1 tab, Oral, Daily Allergies Animal Dander Environmental Smoke??(Unknown) Mold??(Unknown) Seasonal??(Unknown) Tree Pollen??(Unknown) No Known Medication Allergies Social History Electronic Cigarette/Vaping Electronic Cigarette Use: Never. Tobacco Never tobacco user Tobacco Use:. Diagnostic Results Diagnostic Study Interpretation: An MRI obtained at [facility] dated??10/23/2023 shows??anterior tibial tuberosity screws present.?? Thereis thinning of the articular cartilage??about the lateral femoral condyle.?? There is a lateral meniscus tear??articulating with the inferior surface??in the body.?? The ACL, PCL, MCL and LCL are intact. Electronically Signed on 10/30/23 07:10 AM АЛЕКСАНДР Holder Electronically Signed on 10/30/23 07:30 AM Arik Hylton MD Patient Care team information Care Team Personnel Name: BAKARI PATEL Position: No Access Member Role: Primary Care Physician Address: Address: [address] [place] [address]- Care Team Related Persons Name: LYNDA GTZ
--- OUTSIDE RECORDS SUMMARY | 2024-03-02 02:46 | XMS_ITS | Continuity of Care Document ---
Author Name Unknown Organization [facility] Address [address] [place] [address] Care Team Providers Care Clerical Supervisor Name Role Phone ELKINBAKARI Moss Isa Primary Care Physician Encounter [facility] NBR [id number] Date(s): 10/10/23 - 10/10/23 [facility] [address] [place] [address]- Encounter Diagnosis Pain in right knee(Final) - Discharge Disposition: Home or Self Care Attending Physician: АЛЕКСАНДР Holder Admitting Physician: АЛЕКСАНДР Holder Allergies, Adverse Reactions, Alerts No Known Medication Allergies Assessment and Plan Future Scheduled Tests Radiology* MRI Knee w/o [...] Internal derangement of right knee Confirmed Active Results Radiology Reports * Exam Date Time Procedure Performing Provider Status 10/10/23 2:47 PM XR Knee Complete 4+ Views Right Pawan Maher; Geovani (Verified) Notes: (XR Knee Complete 4+ Views Right) Reason For Exam: Right knee pain XR Knee Complete 4+ Views Right EXAM DESCRIPTION: XR Knee Complete 4+ Views Right 10/10/2023 INDICATION: RIGHT KNEE PAIN COMPARISON: 03/01/2014 IMPRESSION: No acute fracture or dislocation No significant regional arthritic changes No focal lytic or sclerotic lesion Two orthopedic screws in the proximal tibia which were seen previously. JOB #: [id number] Final Signed by: Mykel Barkley MD Signed (Electronic Signature): 10/10/2023 2:57 pm Social History Social History Type Response Tobacco Never tobacco user T obacco Use:. Sex Patient Care team information Care Team Personnel Name: BAKARI PATEL Position: No Access Member Role: Primary Care Physician Address: Address: [address] [place] [address]- Care Team Related Persons Name: LYNDA GTZ
--- OUTSIDE RECORDS SUMMARY | 2024-03-02 02:46 | XMS_ITS | Continuity of Care Document ---
Author Name Unknown Organization [facility] Address [address] [place] [address] Care Team Providers Care Account Technician Name Role Phone BAKARI PATEL Primary Care Physician Encounter [facility] NBR [id number] Date(s): 12/19/23 - 12/19/23 [facility] [address], [place] [address] Encounter Diagnosis Tear of lateral meniscus of right knee(Discharge Diagnosis) - 12/19/23 Tear of medial meniscus of right knee(Discharge Diagnosis) - 12/19/23 Chondral defect of femoral condyle(Discharge Diagnosis) - 12/19/23 Discharge Disposition: Home or Self Care Attending Physician: АЛЕКСАНДР Holder Referring Physician: BAKARI PATEL Allergies, Adverse Reactions, Alerts Substance Reaction Severity Status Animal Dander Unknown Active escitalopram Insomnia Mild Active Mold Unknown Unknown Active Environmental Smoke Unknown Unknown Active Tree Pollen Unknown Unknown Active Seasonal Unknown Unknown Active Assessment and Plan Extracted from: Title:Alpine right knee POV 1 Author:АЛЕКСАНДР Caruso Date:12/19/23 1.??Tear of lateral meniscus of right knee??S83.281A 2.??Tear of medial meniscus of right knee??S83.241A 3.??Chondral defect of femoral condyle??M23.8X9 The patient is doing well status post the aforementioned procedure albeit sore. ??I like to get her started on physical therapy. ??She will wear her patellofemoral hinged knee brace full-time for the next 5 weeks.?? She will continue with her aspirin and use of Tylenol as needed along with ice or heat. ??Will see her back in 6 weeks for follow-up. 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 Confirmed Active Cognitive impairment 1 Confirmed [...] of right knee Confirmed Active 1followed by [facility] neuro on meds Procedures Procedure Date Related Diagnosis Body Site Status Arthroscopy Knee (Right) 1 12/11/23 Completed Arthroscopy of knee Compl eted Arthroscopy of shoulder C ompleted Bunionectomy Completed 1auto-populated from documented surgical case Vital Signs Most recent to oldest [Reference Range]: 1 Peripheral Pulse Rate [60-100 bpm] 78 bp m (12/19/23 11:27 AM) Blood Pressure [90-140/60-90 mmHg] 128/7 5mmHg (12/19/23 11: AM) Mean Arterial Pressure, Cuff [65-140 mmH g] 93 mmHg (12/19/23 11:27 AM) Weight 61.23 kg (12/19/23 11:27 AM) Weight Measured (lbs) 134.989 lb (12/19/23 11: AM) Weight Dosing 61.230 kg (12/19/23 11: AM) Height 172.72 cm (12/19/23 11:27 AM) Height/Length Measured (inches) 68 inch (12/19/23 11:27 AM) BSA Measured 1.71 m2 (12/19/23 11: AM) Body Mass Index 20.52 kg/m2 (12/19/23 11: AM) Social History Social History Type Response Tobacco Never tobacco user T obacco Use:. Sex Physician Outpatient Note * АЛЕКСАНДР Holder: PERFORM Event Display: Office Clinic Note Physician Authored Date: [id number] JESSICA GTZ :1965 Age:58 years Sex:Female Visit Date:12/19/2023 Primary Care Physician: BAKARI PATEL Chief Complaint RIGHT KNEE 1ST POV History of Present Illness The patient comes in today status post surgery on 12/11/2023. ??She had a right knee arthroscopy with partial medial lateral meniscectomy, shaving chondroplasty, microfracture??of the femoral trochlea, and lateral lease.?? She is pretty sore today. ??She is limping around a little bit.?? Her motion is a little bit limited but she has been doing her exercises despite the discomfort. ??She is not need of any refills. Review of Systems Other than the HPI today is unremarkable Physical Exam Vitals & Measurements HR:??78??(Peripheral)?? BP:??128/75?? SpO2:??99%?? HT:??172.72??cm?? WT:??61.23??kg?? BMI:??20.52?? Pain Score:??3?? BSA:??1.71?? General: AAOx3, in no acute distress, appears to be their stated age, is generally fit appearing. Walks with an antalgic gait. ?? Right knee: Mild effusion, mild edema. Well approximated incisions. No signs of bleeding, discharge or infection. Calves are soft and nontender, negative homans. Motor sensory reflex exam distallyis intact. Range of motion is comfortable to about 100 degrees of flexion and she is lacking 1 or 2degrees of full extension. Assessment/Plan 1.??Tear of lateral meniscus of right knee??S83.281A 2.??Tear of medial meniscus of right knee??S83.241A 3.??Chondral defect of femoral condyle??M23.8X9 The patient is doing well status post the aforementioned procedure albeit sore. ??I like to get herstarted on physical therapy. ??She will wear her patellofemoral hinged knee brace full-time for thenext 5 weeks.?? She will continue with her aspirin and use of Tylenol as needed along with ice or heat. ??Will see her back in 6 weeks for follow-up. 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 Cognitive impairment Disorder of rotator cuff Dysfunction of eustachian tube Eczema Environmental allergy GERD - Gastro-esophageal reflux disease H/O: migraine Herpes zoster without complication History of kidney stone Internal derangement of right knee Nontraumatic rupture of rotator cuff of left shoulder Osteoporosis PONV - Postoperative nausea and vomiting Posterior rhinorrhea Right patellofemoral syndrome SOBOE - Shortness of breath on exertion Tear of lateral meniscus of right knee [...] Daily Phenergan 25 mg oral tablet sertraline 25 mg oral [...] Never Tobacco Never tobacco user Tobacco Use:. Electronically Signed on 12/19/23 02:10 PM АЛЕКСАНДР Holder Patient Care team information Care Team Personnel Name: BAKARI PATEL Position: No Access Member Role: Primary Care Physician Address: Address: [address] [place] [address]- Care Team Related Persons Name: LYNDA GTZ
--- OUTSIDE RECORDS SUMMARY | 2024-03-02 02:46 | XMS_ITS | Continuity of Care Document ---
Author Name Unknown Organization [facility] Address [address] [place] [address] Care Team Providers Care Kitchen Porter Name Role Phone BAKARI PATEL Primary Care Physician Encounter [facility] NBR [id number] Date(s): 10/11/23 - 10/11/23 [facility] [address] [place], [place] [address] Discharge Disposition: Home Allergies, Adverse Reactions, Alerts No Known Medication [...] Internal derangement of right knee Confirmed Active Social History Social History Type Response Tobacco Never tobacco user T obacco Use:. Sex Patient Care team information Care Team Personnel Name: BAKARI PATEL Position: No Access Member Role: Primary Care Physician Address: Address: [address] [place] [address]- Care Team Related Persons Name: LYNDA GTZ
--- OUTSIDE RECORDS SUMMARY | 2024-03-02 02:46 | XMS_ITS | Continuity of Care Document ---
Author Name Unknown Organization [facility] Address [address] [place] [address] Care Team Providers Care Office Technology Professor Name Role Phone BAKARI PATEL Primary Care Physician Encounter [facility] NBR [id number] Date(s): 02/06/24 - 02/06/24 [facility] [address] [place] [address] [place] Discharge Disposition: Home Allergies, Adverse Reactions, Alerts [...] Confirmed Active Chronic insomnia Confirmed Active Chronic [id number]-[id number] syndrome Confirmed Active Cognitive impairment 1 Confirmed [...] knee Confirmed Active 1followed by [facility] neuro on meds Procedures Procedure Date Related [...] Primary Care Physician Address: Address: [address] [place] [address]- Care Team Related Persons Name: LYNDA GTZ
== END ==
PROVIDERS: PCP Physician Assistant Medical; Visit Provider Student in an Organized Health Care Education/Training Program
DX: M75.102 Unspecified rotator cuff tear or rupture of left shoulder, not specified as traumatic (principal); M85.612 Other cyst of bone, left shoulder; Z98.890 Other specified postprocedural states
CPT/HCPCS: 73221

== ENCOUNTER 2024-05-26 23:14 | Emergency (ER) | payer BC, SELFPAY ==
--- NOTE | 2024-05-26 23:16 | ED.GENADUL_ITS ---
Discharge Plan Disposition Patient Disposition: Home Condition: Good Discharge Details Clinical Impression: Contusion of right knee, initial encounter, Strain of both wrists Primary Care Provider: David Lockhart ED Provider: Salvador Loera Temple Meds and New Rx's Prescriptions: Continued fexofenadine 180 mg tablet 180 mg PO DAILY ipratropium bromide intranasal DAILY AM hydrochlorothiazide 12.5 mg capsule 12.5 mg PO DAILY galantamine 12 mg tablet 12 mg PO BID Qty: 180 3RF Rx Instructions: administer with AM and PM meals chlorpheniramine maleate 4 mg tablet 4 mg PO Q6H PRN sumatriptan succinate [Imitrex] 100 MG tablet 100 mg PO ONCE Rx Instructions: PRN clotrimazole-betamethasone [Lotrisone] 45 GM cream 45 gm Topical PRN montelukast [Singulair] 10 MG tablet 10 mg PO DAILY Rx Instructions: PRN seasonal albuterol sulfate [ProAir HFA] 8.5 GM HFA aerosol inhaler 2 puff Inhalation Q6H PRN Patient Comments: seasonal estradiol 1 EACH patch weekly 1 ea Transdermal . DIRECTED hydrocortisone valerate 15 GM cream 15 gm Topical BID azelastine-fluticasone [Dymista] 23 GM spray,non-aerosol 23 gm NS BID (DME) BreatheRite MDI Spacer Spacer See Rx Instructions .Route Rx Instructions: As directed magnesium oxide 400 mg magnesium tablet 800 mg PO QHS (DME) Oxygen Tank See Rx Instructions .Route Rx Instructions: 1 unit as directed. Use 2-4L NC with conserving device. budesonide-formoterol [Symbicort] 160-4.5 mcg/actuation HFA aerosol inhaler 2 puff Inhalation BID memantine 5 mg tablet See Rx Instructions .ROUTE .COMPLEX Qty: 180 3RF Dose Instruction: TAKE 1 TABLET BY MOUTH TWICE DAILY Rx Instructions: TAKE 1 TABLET BY MOUTH TWICE DAILY ibuprofen 600 mg tablet 600 mg PO Q6H PRN (Reason: Pain and inflammation) Qty: 60 0RF Discharge Instructions Instructions: Taking care of bruises, Using Cold for Pain Additional Instructions: You were seen after a trip and fall. Imaging studies are all negative for any fracture or dislocation. You do have significant bruising and swelling to the knee related to soft tissue contusion. Ice on and off over the next 2 or 3 days should help. Keep your leg elevated. Alternate acetaminophen with ibuprofen to help with the pain. You may use your splint for your wrist if they provide comfort. Follow-up with your primary care next week if you are not improving. Return to ED for any severe worsening headache, neurologic change, persistent vomiting, other concerns. Referrals: David Lockhart PA [Primary Care Provider] - [facility] General Mode of arrival: ambulatory . Date/Time Provider Initiated Documentation: 05/26/24 23:16 . Limitations to Documentation: no limitations . Information obtained by: patient and RN notes reviewed . HPI Narrative: Patient presents to ED status post trip and fall outside. She did strike her head but did not have loss of consciousness. Landed on her knees and hands. Has abrasions to the palms of her hand and right knee as well as pain and swelling over the right knee. Complains of bilateral wrist pain. Complains of headache and bruising to the forehead. Denies any neck pain or neurologic change. Denies any back pain, chest pain, shortness of breath, abdominal pain. She is not on anticoagulants. Related Data Home Medications ?Medication ?Instructions ?Recorded ?Confirmed Imitrex 100 mg tablet (sumatriptan 100 mg PO ONCE 03/28/15 05/26/24 succinate) Lotrisone 1 %-0.05 % topical cream 45 gm topical PRN 03/28/15 01/22/24 (clotrimazole-betamethasone) ProAir HFA 90 mcg/actuation 2 puff inhalation Q6H PRN 03/28/15 05/26/24 aerosol inhaler (albuterol sulfate) Singulair 10 mg tablet 10 mg PO DAILY 03/28/15 05/26/24 (montelukast) estradiol 0.1 mg/24 hr weekly 1 ea transdermal . DIRECTED 03/28/15 05/26/24 transdermal patch azelastine 137 mcg-fluticasone 50 23 gm NS BID 11/11/17 05/26/24 mcg/spray nasal spray (Dymista) hydrocortisone valerate 0.2 % 15 gm topical BID 11/11/17 05/26/24 topical cream ibuprofen 600 mg tablet 600 mg PO Q6H PRN Pain and 08/11/21 05/26/24 inflammation #60 tabs inhalational spacing device 01/15/22 05/26/24 (BreatheRite MDI Spacer) magnesium oxide 800 mg PO QHS 01/15/22 05/26/24 fexofenadine 180 mg tablet 180 mg PO DAILY 04/02/22 05/26/24 Oxygen 12/04/22 01/22/24 budesonide-formoterol HFA 160 2 puff inhalation BID 12/13/22 05/26/24 mcg-4.5 mcg/actuation aerosol inhaler (Symbicort) hydrochlorothiazide 12.5 mg capsule 12.5 mg PO DAILY 12/13/22 05/26/24 ipratropium bromide intranasal DAILY AM 12/13/22 01/22/24 memantine 5 mg tablet See Rx Instructions .Route 12/05/23 05/26/24 .COMPLEX #180 tabs galantamine 12 mg tablet 12 mg PO BID #180 tabs 01/22/24 05/26/24 chlorpheniramine maleate 4 mg 4 mg PO Q6H PRN 05/01/24 05/26/24 tablet Previous Rx's ?Medication ?Instructions ?Recorded ibuprofen 600 mg tablet 600 mg PO Q6H PRN Pain and 08/11/21 inflammation #60 tabs memantine 5 mg tablet See Rx Instructions .Route 12/05/23 .COMPLEX #180 tabs galantamine 12 mg tablet 12 mg PO BID #180 tabs 01/22/24 Allergies Allergy/AdvReac Type Severity Reaction Status Date / Time latex Allergy Intermediate Skin Rash Unverified 05/26/24 23:33 animal,grass,smoke,tree Allergy Unknown unknown Uncoded 05/26/24 23:33 pllen, molds contrast dye Allergy Unknown Unknown Uncoded 05/26/24 23:33 General YANETH: 3 Review of Systems Narrative: per HPI Exam Narrative Exam Narrative: Const: WDWN female in NAD. VS per triage. HEENT: NC. Small bruise/hematoma middle of forehead. No laceration/abrasion. Neck: Supple. Trachea midline. No midline tenderness. Lungs: Normal respiratory effort. Lungs are clear. Chest NT. Cor: RRR without murmur. Good radial pulses. Neuro: A+O x 3. Normal speech, mentation. Cranial nerves II - XII grossly intact. No gross motor or sensory deficit. Ext: No C/C/E. Right knee with bruising/swelling over the patella. LLE without pain/tenderness. B wrist with pain but no deformity/swelling. Skin: Abrasion to palms B and knee on R. Medical Decision Making Patient presenting with mechanical fall with head strike but no LOC. Bruising/small hematoma over the forehead with complaint of headache. She is not on anticoagulation. However, states headache is severe despite taking ibuprofen. Has abrasions to her knee and hands but no lacerations. Complains of wrist pain bilaterally and has pain and swelling of the right knee. Will obtain head CT, bilateral wrist x-ray, right knee x-ray. Patient complaining of continued pain despite taking ibuprofen at home. She is given acetaminophen here. X-rays and CT head per my read as well as preliminary radiology read are all negative. Patient instructed to use ice on and off over the next few days. She may alternate acetaminophen with ibuprofen. She has wrist splints at home which she may need to use if needed for comfort. Follow- up with primary care next week if not improving. Return precautions provided. Imaging Data Radiologic Study: Attestation: I personally reviewed and interpreted this imaging study as follows: Imaging: X-Ray (Bilateral wrist, right knee) My impression: Negative for fracture or dislocation Radiologic Study #2: Attestation: I personally reviewed and interpreted this imaging study as follows: Imaging: CT Scan (CT head) My impression: Negative for acute traumatic intracranial injury PFSH All Active Problems (Updated 05/27/24 @ 01:17 by Salvador Loera MD) Strain of both wrists (Acute) Contusion of right knee, initial encounter (Acute) Porokeratosis (Acute) Achilles tendon contracture, bilateral (Acute) Screening for colorectal cancer (Chronic) 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) Allergic rhinitis (Chronic 11/04/13) Postnasal drip (Chronic 04/05/14) Mild cognitive impairment (Chronic) Allergic fungal sinusitis (Acute 07/20/13) Allergic rhinitis due to pollen (Chronic 08/08/15) Closed nondisplaced avulsion fracture of tuberosity of right calcaneus (Acute 06/09/18) Because of persistent symptoms and tenderness over the anterior talus i think repeat x-rays are indicated to rule out an osteochondral injury to the talus. These are performed today and appear normal. I inform the patient that it will take along time before she is asymptomatic. I recommend a trial of topricin to help with the discomfort. follow-up with me an needed. Hallux valgus (acquired), left foot (Acute) COVID-19 virus infection (Acute) Cough (Acute) Sore throat (Acute) COVID-19 long hauler (Acute) Corns and callosities (Acute) Pain, foot (Acute) right Loose stools (Acute) RAD (reactive airway disease) (Acute) Dyspnea (Acute) Oxygen desaturation (Acute) Hypokalemia (Acute) Lumbar pain (Acute) Osteoarthritis (Chronic) shoulder Keratosis pilaris (Acute) Orthostasis (Acute) positional Folliculitis (Acute) presumed fungal Rotator cuff syndrome of right shoulder (Acute) Herpes labialis (Acute) Unspecified contraceptive management (Acute) Insomnia (Acute) Fatigue (Acute) Hair loss (Acute) Memory impairment (Acute) Kidney stones (Chronic) Irregular menses (Acute) Osteoporosis (Chronic) Postherpetic neuralgia (Acute) Rhinitis, chronic (Acute) Environmental allergies (Acute) Asthma, severe persistent (Acute) Medical History Tachycardia NOC Asthma History of kidney stones History of gastroesophageal reflux (GERD) Chondromalacia Depression Migraine Surgical History Hx of shoulder surgery Knee surgery Colonoscopy - IV Sedation (05/27/15) SALLY ARAYA Family History Other Personal history of malignant neoplasm Social History Smoking/Tobacco Use Status: Never Second Hand Exposure: Yes (occasionally) Smoking risk assessment performed?: Yes Alcohol Intake: never Drug use: Never Substance use type: does not use Housing: house 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
[2024-05-26 23:18] VITALS: BP 158/88; PULSE 68; RESP 18; TEMP 36.9; O2SAT 100
--- NOTE | 2024-05-26 23:30 | DI.RAD_ITS ---
Exam(s) XR WRIST LT COMPLETE EXAM: XR WRIST LT COMPLETE CLINICAL HISTORY: fall/wrist pain. TECHNIQUE: 2D digital imaging was performed. Four views. COMPARISON: CR,XR XR WRIST RT COMPLETE from 05/27/2024 FINDINGS: BONES: No acute fracture is present. No bony destructive lesion is seen. JOINTS: The carpal bones are normally aligned. SOFT TISSUE: Normal. IMPRESSION: Unremarkable radiographs of the left wrist. DATA REPOSITORY: RADIATION DOSE DELIVERED:
--- NOTE | 2024-05-26 23:30 | DI.RAD_ITS ---
Exam(s) XR WRIST RT COMPLETE EXAM: XR WRIST RT COMPLETE CLINICAL HISTORY: fall/wrist pain. TECHNIQUE: 2D digital imaging was performed. Four views. COMPARISON: No exams were available for comparison FINDINGS: BONES: No acute fracture is present. No bony destructive lesion is seen. JOINTS: The carpal bones are normally aligned. SOFT TISSUE: Normal. IMPRESSION: Unremarkable radiographs of the right wrist. DATA REPOSITORY: RADIATION DOSE DELIVERED:
--- NOTE | 2024-05-26 23:30 | DI.CT_ITS ---
Exam(s) CT HEAD WO EXAM: CT HEAD WO CLINICAL HISTORY: fall/head injury. TECHNIQUE: Imaging Protocol: Axial computed tomography images with coronal and sagittal reformatted images were created and reviewed COMPARISON: No exams were available for comparison FINDINGS: Ventricles and Extra axial spaces: Normal in size and morphology for the patient's age. Hemorrhage: None. Cerebral parenchyma: No evidence of acute infarct or mass. Midline shift: None. Brainstem/Cerebellum: Normal. Calvarium: Normal. Visualized Paranasal sinuses:Clear. Mastoids: Clear. Soft Tissues: Unremarkable. ORBITS: Unremarkable. PITUITARY: Not enlarged. IMPRESSION: No acute intracranial process. RADIATION DOSE DELIVERED: 829.47mGy.cm Total DLP DATA REPOSITORY: All CT scans at this facility are submitted to the National Radiology Data Registry (NRDR) Dose Index Registry (DIR) with the [employer] (A[employer]). RADIATION OPTIMIZATION: All CT scans at this facility use at least one of these dose optimization te chniques: automated exposure control; mA and/or kV adjustment per patient size (includes targeted exa ms where dose is matched to clinical indication); or iterative reconstruction.
--- NOTE | 2024-05-27 | DI.RAD_ITS ---
Exam(s) XR KNEE RT 4V AP,LAT,HERNAN,PAT EXAM: XR KNEE RT 4V AP,LAT,HERNAN,PAT CLINICAL HISTORY: fall; pain/swelling. TECHNIQUE: 2D digital imaging was performed. Three views. COMPARISON: CR XR KNEE RT 3V AP,LAT,HERNAN from 05/31/2022 MR MR LOWER JOINT RT WO from 10/23/2023 FINDINGS: BONES: No acute fracture is present. No bony destructive lesion is seen. Screws in tibial tubercle. JOINTS: The knee is normally aligned. No joint effusion is seen. The joint spaces are maintained. SOFT TISSUE: Anterior soft tissue swelling. IMPRESSION: Anterior soft tissue swelling. DATA REPOSITORY: RADIATION DOSE DELIVERED:
[2024-05-27] MEDS: Acetaminophen 500 MG TAB 1000 MG PO (00:53)
--- NOTE | 2024-05-27 01:07 | DI.VRAD_ITS ---
PROCEDURE INFORMATION: Exam: CT Head Without Contrast Exam date and time: 05/26/2024 11:46 PM Age: 58 years old Clinical indication: Injury or trauma; Blunt trauma (contusions or hematomas); Without loss of consciousness; Injury date: 05/26/24; Injury details: Fall, hit head TECHNIQUE: Imaging protocol: Computed tomography of the head without contrast. COMPARISON: MRI - BRAIN WO CONTRAST 12/02/2017 3:31 PM FINDINGS: Brain: Normal. No hemorrhage. Unremarkable white matter. No mass effect. Cerebral ventricles: No ventriculomegaly. Paranasal sinuses: Visualized sinuses are unremarkable. No fluid levels. Mastoid air cells: Visualized mastoid air cells are well aerated. Bones: Unremarkable. No acute fracture. Soft tissues: Unremarkable. IMPRESSION: No acute intracranial abnormality. Dictated and Authenticated by: Brody Padgett MD. Ordering:SHANICE Franco MD
--- NOTE | 2024-05-27 01:08 | DI.VRAD_ITS ---
PROCEDURE INFORMATION: Exam: XR Right Wrist Exam date and time: 05/27/2024 12:05 AM Age: 58 years old Clinical indication: Injury or trauma; Blunt trauma (contusions or hematomas); Right; Injury date: 05/26/24; Injury details: Fall, wrist pain TECHNIQUE: Imaging protocol: Radiologic exam of the right wrist. Views: 3 or more views. COMPARISON: No relevant prior studies available. FINDINGS: Bones/joints: Normal. Soft tissues: Normal. IMPRESSION: No acute findings. Dictated and Authenticated by: Brody Padgett MD. Ordering:SHANICE Franco MD
--- NOTE | 2024-05-27 01:09 | DI.VRAD_ITS ---
PROCEDURE INFORMATION: Exam: XR Left Wrist Exam date and time: 05/27/2024 12:16 AM Age: 58 years old Clinical indication: Injury or trauma; Blunt trauma (contusions or hematomas); Left; Injury date: 05/26/24; Injury details: Fall, wrist pain TECHNIQUE: Imaging protocol: Radiologic exam of the left wrist. Views: 3 or more views. COMPARISON: MR UPPER JOINT LT WO 03/02/2024 10:51 AM FINDINGS: Bones/joints: Normal. Soft tissues: Normal. IMPRESSION: No acute findings. Dictated and Authenticated by: Brody Padgett MD. Ordering:SHANICE Franco MD
--- NOTE | 2024-05-27 01:11 | DI.VRAD_ITS ---
PROCEDURE INFORMATION: Exam: XR Right Knee Exam date and time: 05/27/2024 12:26 AM Age: 58 years old Clinical indication: Injury or trauma; Blunt trauma; Right; Injury date: 05/26/24; Injury details: Fall, knee pain, swelling; Prior surgery; Surgery date: 6+ months; Surgery type: R knee TECHNIQUE: Imaging protocol: Radiologic exam of the right knee. Views: 4 or more views. COMPARISON: MR LOWER JOINT RT WO 10/23/2023 9:31 AM FINDINGS: Bones/joints: Post tibial tuberosity osteotomy. No knee joint effusion. Neutral patellar tracking. No acute fracture or dislocation. Soft tissues: Mild prepatellar tendon soft tissue swelling. IMPRESSION: No acute fracture or dislocation. Dictated and Authenticated by: Brody Padgett MD. Ordering:SHANICE Franco MD
[2024-05-27 01:30] VITALS: BP 169/74; PULSE 71; RESP 20; TEMP 37; O2SAT 100
[2024-05-27] MEDS: traMADol 50 MG TAB PO (01:34)
[2024-05-27 01:39] VITALS: BP 169/74; PULSE 71; RESP 20; TEMP 37; O2SAT 100
== END 2024-05-27 02:00 | disposition home or self-care (01) ==
PROVIDERS: Emergency Provider Emergency Medicine; PCP Physician Assistant Medical
DX: S66.911A Strain of unspecified muscle, fascia and tendon at wrist and hand level, right hand, initial encounter (principal); S66.912A Strain of unspecified muscle, fascia and tendon at wrist and hand level, left hand, initial encounter; S80.01XA Contusion of right knee, initial encounter; S00.83XA Contusion of other part of head, initial encounter; W01.0XXA Fall on same level from slipping, tripping and stumbling without subsequent striking against object, initial encounter
CPT/HCPCS: 99284; 70450; 73110; 73564; 99283

== ENCOUNTER 2024-07-20 18:22 | Outpatient (REF) | payer BC, SELFPAY ==
--- OUTSIDE RECORDS SUMMARY | 2024-07-20 18:24 | XMS_ITS | Encounter Summary ---
Author Organization [facility] [place] [address] Care Team Providers Care Dock Worker Name Role Phone JeanethDavid zhong Primary Care Provider [phone]- [phone] Reason for Referral * Diagnostic Test (Routine) - Closed Specialty Diagnoses / Procedures Referred By Contac t Referred To Contact Radiology Diagnoses Pain in left hand Acute pain of left wrist Procedures MRI Wrist wo Contrast Left (Generic) Tarik Henry MD [facility] [place] [address] [place] [address] Referral ID Status Reason Start Date Expiration Date V isits Requested Visits Authorized [id number] Closed Specialty Service Requested 07/06/2024 01/03/2026 1 1 Reason for Visit * Reason Comments Follow-up NXR // BILAT WRIST I NJECTIONS Encounter Details Date Type Department Care Team (Latest Contact Info) Description 07/06/2024 1:00 PM EST Office [place] [address] Tarik Henry MD [facility] [place] [address] Pain in left hand; Acute pain of left wrist; TFCC (triangular fibrocartilage complex) injury, right, initial encounter; Injury of triangular fibrocartilage complex (TFCC) of left wrist, initial encounter Social History Tobacco Use Types Packs/Day Years Used Date Smoking Tobacco: Never Passive Smoke Exposure: Never Smokeless Tobacco: Never Alcohol Use Standard Drinks/Week Comments No 0 (1 standard drink = 0.6 oz pur e alcohol) DH IPV Inpatient Questions Answer Date Recorded Does Anyone Try to Keep You From Having Contact with Others or Doing Things Outside Your Home? no 03/15/2023 Feels Threatened by Someone no 02/24 Feels Unsafe at Home or Work/School no 03/15/2023 Physical Signs of Abuse Present no 03/15/2023 Sex and Gender Information Value Date Recorded Sex Assigned at Female 01/29/2022 12:45 PM EDT Gender Identity Female 03/23/2024 9:08 AM EDT Sexual Orientation Straight 03/23/2024 9: 08 AM EDT documented as of this encounter Progress Notes * Tarik Henry MD - 07/06/2024 1:00 PM EST [facility] FOLLOW UP NOTE ID/Chief Complaint: Chief Complaint Patient presents with Follow-up NXR // BILAT WRIST INJECTIONS Interval History: patient presents today with ongoing bilateral hand and wrist pain, worse on the left side and the right. The patient an episode on May 26 when she was at a homeless encampment trying to help her son, and fell and landed onto a cinderblock with both of her wrists. She notes significant pain especially on the left wrist. She had gone to a emergency room which she felt neglected her, and sent herhome. She then went back to another emergency room later as she was not healing, one week after theinjury and they took x-rays, and stated that they did not see a fracture but thought she may have asprain in her wrist but that she should follow-up with the doctor. She was supposed to go back to see another doctor however did not trust that physician, and waited to see us. It is now been five weeks plus since her fall. The patient is still in pain in her wrist and she notes that the pain is located around the thumb, and the proximal carpal bones up the wrist into the forearm, as well as downtowards the fingers. She notes that she had a brace however her thumb went completely numb when shewore the braces that put her into some wrist extension. The patient states she also has similar pain to when she had prior to the first injection we did in her TFC C. The patient still has pain at her first CMC joint as well, however notes that each of the injections we gave her gave her some pain relief. She notes that is worse when she is doing activities, however has been able to get some of her necessary fall and winter activities started. The pain today is rated 7/10, and the patient is limiting her ability to exercise, sleep, do sports do daily activities and work. She also had some medications including ice, ibuprofen, Tylenol as well as tried the tramadol and oxycodone but none of those reduced her pain significantly. Relevant labs- BMI Readings from Last 2 Encounters: 06/09/24 22.08 kg/m?? 04/30/24 21.14 kg/m?? No results found for: HA1C No results found for: INR, PT Lab Results Component Value Date NA 141 02/11/2024 K 3.9 02/11/2024 CL 103 02/11/2024 CO2 28 02/11/2024 BUN 15 02/11/2024 CREATININE 0.88 02/11/2024 GLUCOSE 55 (L) 02/11/2024 CALCIUM 9.7 02/11/2024 ESTGFR 75 02/11/2024 BP Readings from Last 3 Encounters: 06/09/24 149/84 04/06/24 112/69 03/25/24 104/67 Lab Results Component Value Date WBC 5.7 01/24/2015 HGB 13.9 01/24/2015 HCT 41.8 01/24/2015 MCV 91.7 01/24/2015 PLATELET 197 01/24/2015 Lab Results Component Value Date CHLPL 176 02/18/2024 CHLPL 205 02/12/2022 Lab Results Component Value Date HDL 75 02/18/2024 HDL 75 02/12/2022 Lab Results Component Value Date LDLCHOL 87 02/18/2024 LDLCHOL 113 02/12/2022 Lab Results Component Value Date TRIG 68 02/18/2024 TRIG 86 02/12/2022 Lab Results Component Value Date CHOLHDL 2.7 02/12/2022 Anticoagulant & Antiplatelet medications Antibiotics No active infections No new medical problems or surgeries since her last visit. No new allergies to medications Physical Examination: Vitals: There were no vitals taken for this visit. - Gen: Alert and following commands, no acute distress - CV: pulses 2+ and equal - Skin: Intact skin, non-erythematous, no rashes or breakdown appreciated Musculoskeletal: At the BL wrist Inspection: No deformity No swelling around the wrist Alignment: no radial or ulnar deviation ROM: Full in all planes including flexion, extension, ulnar and median deviation. Strength: (R/L) Extension: 5/5 Flexion: 5/5 Pronation: 5/5 Supination: 5/5 Palpation: Anatomic snuffbox: ttp DRUJ: ttp SL interval: ttp Ganglion: None appreciated Base of the thumb: ttp TFCC: ttp A1 ryan/flexor tendon junction: No ttp Special tests: 1st CMC joint OA CMC grind: pos Scaphoid Scaphoid grind: pos Scapholunate instability Tuttle test: neg Imaging: No new imaging. Diagnostic Ultrasound Pre-scan reveals no effusion at bilateral TF cc. Additionally we look at the scaphoid, and there are some cortical irregularity is noted in some hypoechoic signal located in this area after the fall,however it is unclear if this is chronic changes or a new injury. PROCEDURE Ultrasound guided injection. Procedure injection location: TFCC Side: Bilateral Indication: Pain and limited function Equipment: Vinobo with 4-20 MHz linear transducer, 4-12 MHz linear transducer, 8-18MHz hockey stick and 1-5 MHz curvilinear probe for adequate depth. Informed Consent: Following denial of allergy and review of potential side effects and complications including, but not limited to, infection, bleeding, allergic reaction, local tissue breakdown, injury to soft tissue and/or nerves and seizure, the patient indicated understanding and verbal informed consent was obtained to proceed. Procedural pause conducted to verify: correct patient identity, procedure to be performed and, as applicable, correct side and site, correct patient position, availability of any special equipment orother special requirements. Right Justification for use of ultrasound guidance: The use of direct ultrasound visualization of the needle (rather than a non-guided injection) was required to increase patient safety by excluding inadvertent intramuscular or intratendinous placement and minimizing bleeding by avoiding osteochondral orvascular injury from the needle. Additionally, the increased accuracy of placement may increase clinical effectiveness and will allow higher diagnostic specificity when evaluating effectiveness of this injection. The injection location was confirmed by a prescan of the area. Following this, the area was cleanedin the usual sterile fashion with chlorhexidine. Subsequently a 25g 1.5in needle was advanced to the target under direct ultrasound visualization using an in-plane approach. Aspiration revealed no blo od. The injection was performed with solution volumes as below. Lidocaine 1% 0.5 ml Triamcinolone 40 mg/ml 0.5ml The needle was removed. Hemostasis was achieved with direct pressure. There were no complications and the patient tolerated the procedure well. Post procedure instructions were provided. Left Justification for use of ultrasound guidance: The use of direct ultrasound visualization of the needle (rather than a non-guided injection) was required to increase patient safety by excluding inadvertent intramuscular or intratendinous placement and minimizing bleeding by avoiding osteochondral orvascular injury from the needle. Additionally, the increased accuracy of placement may increase clinical effectiveness and will allow higher diagnostic specificity when evaluating effectiveness of this injection. The injection location was confirmed by a prescan of the area. Following this, the area was cleanedin the usual sterile fashion with chlorhexidine. Subsequently a 25g 1.5in needle was advanced to the target under direct ultrasound visualization using an in-plane approach. Aspiration revealed no blo od. The injection was performed with solution volumes as below. Lidocaine 1% 0.5 ml Triamcinolone 40 mg/ml 0.5ml The needle was removed. Hemostasis was achieved with direct pressure. There were no complications and the patient tolerated the procedure well. Post procedure instructions were provided. ASSESSMENT & PLAN Impression: chronic bilateral lateral wrist pain, as well as left base of the wrist and thumb pain. On her leftwrist that is concerning that she still has significant pain this long after her fall, and therefore we would like to get an x-ray and MRI of her wrist if the x-rays unrevealing. My concern is for a scaphoid fracture, or other injury that might necessitate surgery in order to fix that was missed onher initial scan given the proximity of her scan to when she fell. Additionally, for her ongoing lateral wrist pain we will provide her with bilateral TFCC injections in order to reduce her pain and improve her function. Encourage the patient to continue activity at the wrist as tolerated. Will foll ow-up to see how she is progressing. Plan: - Therapeutic exercise: Continue PT exercises - Medications: No changes were made today.. Counseled regarding side effects and appropriate administration of medications as applicable. - Diagnostics: Xrleft wrist , MRI left wrist - Injections: Discussed the risks of a potential soft tissue injection, including bleeding, infection, transient blood sugar elevation, skin depigmentation, and the possibility of weakening tissue over time. Ultrasound guided injection provided today to the [facility] - Medical Decision Making: Discussed surgical and non-surgical options. Detailed the patient's condition, prognosis, further work-up and treatment options. Activity modification was discussed. Answered all of the patient's questions. - F/U - for re-evaluation to ensure we have the appropriate diagnosis and treatment is optimized. Return sooner if needed, advised to call with any questions or concerns in the interim. Tarik Henry MD [employer] Coordinator of Orthopedics [facility] The note was created using dictation, please excuse any grammatical or word errors. documented in this encounter Plan of Treatment Upcoming Encounters Date Type Department Care Team (Late st Contact Info) Description 08/07/2024 3:30 PM EST Office Visit Orthopaedics at [place] [id number] Tarik Henry MD [facility] [place] [address] 09/22/2024 7:00 AM EST [place] [address] Luis Michael Jr., MD [facility] [place] [address] 09/22/2024 8:00 AM EST [place] [address] Luis Michael Jr., MD [facility] [place] [address] documented as of this encounter Results * MRI Wrist wo Contrast Left (Generic) (07/07/2024 3:30 PM EST) WORKSTATION ID [id number] RAD Anatomical Region Laterality Modality Wrist Left Magnetic Resonan ce Impressions 07/07/2024 3:53 PM EST 1. ??Nondisplaced fracture along the volar aspect of the trapezium. 2. ??Bone contusion of the distal pole scaphoid. 3. ??Partial tearing of the distal segment of the volar component of the scapholunate ligament, but the remainder of the volar component and the dorsal component remains intact. 4. ??Unchanged small pinhole tear of the central component of the triangular fibrocartilage complex. Thank you for letting us participate in the care of this patient. ??If you are a health care provider and have any questions regarding this report, please contact the number below. ??For patients who have questions please contact the health animal caretaker supervisor that requested your imaging first. ? Electronically signed by: Romy Waller MD, [facility] ([phone]), at 07/07/2024 3:53 PM Narrative 07/07/2024 3:53 PM EST EXAMINATION: MRI WRIST WO CONTRAST LEFT (GENERIC) CLINICAL HISTORY: ? schapid fx after fall on hand ?? (as entered by ordering provider in the order requisition) TECHNIQUE: MR of the left wrist was performed without contrast. Sequences include axial proton density, axial T2 with fat saturation, coronal proton density with and without fat saturation, sagittal proton density with fat saturation, sagittal T1. COMPARISON: Left wrist radiograph July 06, 2024. ??MR of the left wrist February 01, 2024. FINDINGS: There is a skin marker along the volar aspect of the wrist, indicating the site of patient reported symptoms. Tendons: The extensor and flexor tendons are intact. ??Interval resolution of fluid seen within the 2nd and 3rd extensor compartments. Ligaments: There is partial tearing of the distal segment of the volar component of the scapholunate ligament (series 4001, image 27 and series 6001, image 12), but the remainder of the volar component remains intact. ??The lunotriquetral ligament is intact. ??Unchanged small pinhole tear of the central component of the triangular fibrocartilage complex. The volar radioscaphocapitate and volar radiolunate ligaments are intact. The dorsal radiotriquetral and dorsal intercarpal ligaments are intact. Bones, cartilage, and joints: Bone marrow edema of the distal pole of the scaphoid, without a T1 hypointense fracture line (series 6001, image 12). Nondisplaced fracture along the volar aspect of the trapezium (series 3001, image 20 and series 4001, image 20). ??Scattered enthesopathic and subchondral cysts. ??No full-thickness cartilage defect. Muscles and soft tissues: Normal bulk and signal of the visualized muscles. Normal caliber and signal of the visualized median and ulnar nerves. ??No space-occupying lesion within the carpal tunnel. Procedure Note Romy Waller MD - 07/07/2024 EXAMINATION: MRI WRIST WO CONTRAST LEFT (GENERIC) CLINICAL HISTORY: ? schapid fx after fall on hand (as entered byordering provider in the order requisition) TECHNIQUE: MR of the left wrist was performed without contrast. Sequences includeaxial proton density, axial T2 with fat saturation, coronal proton density withand without fat saturation, sagittal proton density with fat saturation,sagittal T1. COMPARISON: Left wrist radiograph July 06, 2024. MR of the left wrist January. FINDINGS: There is a skin marker along the volar aspect of the wrist, indicating thesite of patient reported symptoms. Tendons: The extensor and flexor tendons are intact. Interval resolutionof fluid seen within the 2nd and 3rd extensor compartments. Ligaments: There is partial tearing of the distal segment of the volarcomponent of the scapholunate ligament (series 4001, image 27 and series 6001, image12), but the remainder of the volar component remains intact. Thelunotriquetral ligament is intact. Unchanged small pinhole tear of the central componentof the triangular fibrocartilage complex. The volar radioscaphocapitate and volar radiolunate ligaments areintact. The dorsal radiotriquetral and dorsal intercarpal ligaments are intact. Bones, cartilage, and joints: Bone marrow edema of the distal pole ofthe scaphoid, without a T1 hypointense fracture line (series 6001, image 12). Nondisplaced fracture along the volar aspect of the trapezium ([id number], image 20 and series 4001, image 20). Scattered enthesopathic andsubchondral cysts. No full-thickness cartilage defect. Muscles and soft tissues: Normal bulk and signal of the visualizedmuscles. Normal caliber and signal of the visualized median and ulnar nerves. No space-occupying lesion within the carpal tunnel. IMPRESSION 1. Nondisplaced fracture along the volar aspect of the trapezium. 2. Bone contusion of the distal pole scaphoid. 3. Partial tearing of the distal segment of the volar component of the scapholunate ligament, but the remainder of the volar component and thedorsal component remains intact. 4. Unchanged small pinhole tear of the central component of thetriangular fibrocartilage complex. Thank you for letting us participate in the care of this patient. If youare a health care provider and have any questions regarding this report,please contact the number below. For patients who have questions please contactthe health animal caretaker supervisor that requested your imaging first. Electronically signed by: Romy Waller MD, [facility]([phone]), at 07/07/2024 3:53 PM Tarik Henry MD IMG MRI ORDERABLES * XR Wrist 3 Views Left (07/06/2024 4:11 PM EST) WORKSTATION ID [id number] RAD Anatomical Region Laterality Modality Left Digital Radiogra phy Impressions 07/07/2024 10:39 AM EST No acute fracture. Normal osseous alignment. If the concern for occult distal radial or scaphoid fracture remains high, consider CT/MRI or repeat radiographs in 10-14 days. Thank you for letting us participate in the care of this patient. ??If you are a health care provider and have any questions regarding this report, please contact the number below. ??For patients who have questions please contact the health animal caretaker supervisor that requested your imaging first. ? Electronically signed by: Simin Preston MD, [facility] ([phone]), at 07/07/2024 10:39 AM Narrative 07/07/2024 10:39 AM EST EXAMINATION: XR WRIST 3 VIEWS LEFT CLINICAL HISTORY: Entered by ordering service: ? of scaphoid fx after fall on hand M79.642, Pain in left hand - M25.532, Pain in left wrist TECHNIQUE: LEFT wrist, 3 view[s] COMPARISON: none FINDINGS: Bones No acute fracture or periostitis. Scaphoid-no fracture line seen. Distal radius-no cortical interruption Joints Radiocarpal joint- congruent Distal radioulnar joint- congruent Scapholunate [SL] interval - ??normal Soft Tissue No soft tissue air or foreign body detected. Procedure Note Simin Preston MD - 07/07/2024 EXAMINATION: XR WRIST 3 VIEWS LEFT CLINICAL HISTORY: Entered by ordering service: ? of scaphoid fx after fall on hand M79.642, Pain in left hand - M25.532, Pain in left wrist TECHNIQUE: LEFT wrist, 3 view[s] COMPARISON: none FINDINGS: Bones No acute fracture or periostitis. Scaphoid-no fracture line seen. Distal radius-no cortical interruption Joints Radiocarpal joint- congruent Distal radioulnar joint- congruent Scapholunate [SL] interval - normal Soft Tissue No soft tissue air or foreign body detected. IMPRESSION No acute fracture. Normal osseous alignment. If the concern for occult distal radial or scaphoid fracture remainshigh, consider CT/MRI or repeat radiographs in 10-14 days. Thank you for letting us participate in the care of this patient. If youare a health care provider and have any questions regarding this report,please contact the number below. For patients who have questions please contactthe health animal caretaker supervisor that requested your imaging first. Electronically signed by: Simin Preston MD, [facility]([phone]), at 07/07/2024 10:39 AM Tarik Henry MD IMG DX ORDERABLES documented in this encounter Visit Diagnoses Diagnosis Pain in left hand Acute pain of left wrist TFCC (triangular fibrocartilage complex) injury, right, initial encounter Injury of triangular fibrocartilage complex (TFCC) of left wrist, initial encounter Pain in left hand Acute pain of left wrist Pain in left hand Acute pain of left wrist documented in this encounter Administered Medications Inactive Administered Medications - up to 3 most recent administrations Medication Order MAR Action Action Date Dose Rate Site triamcinolone acetonide (Kenalog-40) (40 mg/mL) injection 40 mg 40 mg, Intra-articular, ONCE, 1 dose, On Sat07/06/24 at 1400, Routine Given 07/06/2024 1:35 PM EST 40 mg triamcinolone acetonide (Kenalog-40) (40 mg/mL) injection 40 mg 40 mg, Intra-articular, ONCE, 1 dose, On Sat07/06/24 at 1400, Routine Given 07/06/2024 1:35 PM EST 40 mg documented in this encounter Care Teams Dock Worker Relationship Specialty Start Date End Date David Lockhart PA [address] [place] [address] PCP - General Family Medicine 02/11/24 documented as of this encounter
--- OUTSIDE RECORDS SUMMARY | 2024-07-20 18:24 | XMS_ITS | Encounter Summary ---
Author Organization [facility] [place] [address] Care Team Providers Care Special Education Classroom Aide Name Role Phone David Lockhart Primary Care Provider [phone] Encounter Details Date Type Department Care Team (Latest Contact Info) Description 06/29/2024 Travel Social History Tobacco Use Types Packs/Day Years Used Date Smoking Tobacco: Never Passive Smoke Exposure: Never Smokeless Tobacco: Never Alcohol Use Standard Drinks/Week Comments No 0 (1 standard drink = 0.6 oz pur e alcohol) IPV Inpatient Questions Answer Date Recorded Does [...] AM EDT documented as of this encounter Plan of Treatment Upcoming Encounters Date Type Department Care Team (Late st Contact Info) Description 08/07/2024 3:30 PM EST Office [place] [address] Tarik Henry MD [facility] [place] [address] 09/22/2024 7:00 AM EST [place] [address] Luis Michael Jr., MD [facility] [place] [address] 09/22/2024 8:00 AM EST [place] [address] Luis Michael Jr., MD [facility] [place] [place] [address] documented as of this encounter Visit Diagnoses Not on filedocumented in this encounter Care Teams Special Education Classroom Aide Relationship Specialty Start Date End Date David Lockhart PA [address] [place] [address] PCP - General Family Medicine 02/11/24 documented as of this encounter
--- OUTSIDE RECORDS SUMMARY | 2024-07-20 18:24 | XMS_ITS | Clinical Summary ---
Author Organization [facility] Address [facility] [place] [address] Care Team Providers Care Animal Herder Name Role Phone David Lockhart Primary Care Provider [phone]- [phone] Allergies Active Allergy Reactions Criticality Noted Date Comments Animal Dander 02/18/2024 Escitalopram Other (See Comments) 02/12/2023 Grass Pollen-[place], Standard Other (See Comments) 12/07/2010 Runny nose, itching, sneezing Mold Extracts Other (See Comments) 03/31/2013 Sneezing and runny nose Medications Medication Sig Dispensed Refills Start Date End Date Status albuterol (ACCUNEB) 0.63 mg/3 mL nebulizer solution 08/24/2010 Active multivitamin (THERAGRAN) tablet Take 1 tablet by mouth daily. Active montelukast (SINGULAIR) 10 mg tablet Take 10 mg by mouth daily as needed. 12/07/2010 Active hydrocortisone (WESTCORT) 0.2 % Cream Apply topically as needed. 07/25/2015 Active SUMAtriptan (IMITREX) 100 mg Tablet as needed for Migraine. 1 04/13/2016 Active azelastine (ASTELIN) 137 mcg (0.1 %) Aerosol, [place] as needed. 0 06/17/2017 Active galantamine (RAZADYNE) 12 mg Tablet 12 mg 2 times daily. 0 05/31/2018 Active memantine (NAMENDA) 5 mg Tablet 5 mg 2 times daily. 0 05/19/2018 Active acyclovir (ZOVIRAX) 200 mg Capsule as needed. 01/01/2020 Active calcium carbonate/vitamin D3 (VITAMIN D-3 ORAL) Take by mouth daily. Active b complex vitamins Capsule Take 1 capsule by mouth daily. Active MAGNESIUM ORAL Take by mouth. 2 caps QD Active ondansetron (Zofran) 4 mg Tablet Take 4 mg by mouth every 8 hours as needed. 01/17/2022 Active ProChamber Spacer USE DIRECTED WITH INHALER 12/25/2021 Active Allergy Relief, fexofenadine, 180 mg Tablet SWALLOW 1 TABLET BY MOUTH WHOLE WITH WATER ONCE A DAY DO NOT TAKE WITH FRUIT JUICES 03/20/2022 Active benzonatate (Tessalon) 100 mg Capsule Take 100 mg by mouth 3 times daily as needed. 04/02/2022 Active Symbicort 160-4.5 mcg/actuation HFA Aerosol InhalerIndications: Uncomplicated asthma, unspecified asthma severity, unspecified whether persistent Inhale 1 puff into the lungs 2 times daily. May also inhale 1 puff every 4 hours as needed (Shortness of breath, cough or wheezing (up to 4 puffs total daily)). 1 each 07/25/2022 Active estradioL (ESTRACE) 0.01 % (0.1 mg/gram) Cream Place 2 g vaginally twice a week. 42.5 g 12 11/22/2022 Active sertraline (Zoloft) 25 mg tablet Take 100 mg by mouth daily. 02/13/2023 Active hydroCHLOROthiazide (Microzide) 12.5 mg capsule Take 1 capsule by mouth 2 times daily. 60 capsule 11 03/09/2024 03/09/2025 Active estradioL 0.1 mg/24 hr Patch Semiweekly APPLY 1 PATCH TO SKIN AND CHANGE TWICE A WEEK DIRECTED 8 patch 12 03/11/2024 Active ipratropium (Atrovent) 21 mcg (0.03 %) nasal sprayIndications:Va somotor rhinitis 2 sprays by Nasal route 2 times daily. [place] into each nostril. 30 mL 11 06/09/2024 Active ibuprofen (Advil) 800 mg tablet Take 1 tablet by mouth Three Times Daily for DHE. 06/02/2024 Active Active Problems Problem Noted Date Diagnosed Date Normal exam bilateral hands 03/25/2024 Right wrist tendonitis 01/09/2024 Primary osteoarthritis of both first carpometaca rpal joints 10/24/2023 Bilateral wrist pain 08/30/2023 History of COVID-19 05/29/2022 Overview (05/29/2022): November,. Post-COVID syndrome 05/29/2022 Forgetfulness 05/29/2022 Overview (05/29/2022): Followed yearly by Neurology (preceded COVID-19). Hormone replacement therapy (postmenopausal) Overview (05/29/2022): HRT start: 2013. Current HRT: Estradiol patch 0.1mg twice weekly Methods tried: Estradiol patch, Mirena IUD (placed 04/2016) Last labs: Lipids 02/12/2022. The 10-year ASCVD risk score (Vinod ROGERS Jr., et al., 2013) is: 1.3% [...] Migraines 12/07/2010 Resolved Problems Problem Noted Date Diagnosed Date Resolved Date Perimenopause 12/07/2010 02/16/2022 CIS - asthma 08/01/2009 12/07/2010 CIS - nephrolithiasis 08/01/20092010 CIS - perimenopausal 08/01/2009 011 CIS - pneumonia 08/01/2009 12/07/2010 CIS - Raynaud's 08/01/2009 12/07/2010 Encounters Date Type Department Care Team Description 07/08/2024 Notes [place] [phone] Tarik Henry MD 07/07/2024 2:28 PM EST - 07/07/2024 11:59 PM EST [place] [address] Tarik Henry MD Pain in left hand; Acute pain of left wrist Discharge Disposition: Home 07/06/2024 3:26 PM EST - 07/06/2024 11:59 PM EST Hospital Encounter XRay at [address] [place] [facility] Tarik Henry MD Pain in left hand; Acute pain of left wrist Discharge Disposition: Home 07/06/2024 1:00 PM EST Office Visit Orthopaedics at [place] [phone] Tarik Henry MD Pain in left hand; Acute pain of left wrist; TFCC (triangular fibrocartilage complex) injury, right, initial encounter; Injury of triangular fibrocartilage complex (TFCC) of left wrist, initial encounter 07/06/2024 Travel 06/29/2024 Travel 06/16/2024 3:00 PM EDT Office Visit Hematology and Oncology at [place] [phone] Tiffanie Moncada [facility] Family history of ovarian cancer; Family history of malignant neoplasm of breast 06/16/2024 2:35 PM EDT Laboratory Appointment Lab [address] [place], [place] [phone] Family history of malignant neoplasm of breast; Family history of malignant neoplasm of ovary 06/16/2024 Travel 06/15/2024 Orders Only Hematology and Oncology at [place] [phone] Tiffanie Moncada [facility] Family history of malignant neoplasm of breast; Family history of malignant neoplasm of ovary 06/10/2024 3:30 PM EDT Office Visit Plastic Surgery at [address] [place] [address] Santi Shin MD Primary osteoarthritis of both first carpometacarpal joints 06/09/2024 2:00 PM EDT [place] [address] Tong Norman MD Post-COVID chronic dyspnea (Primary Dx); Vasomotor rhinitis 06/09/2024 Travel 06/05/2024 Travel 05/22/2024 [place] [address] Tarik Henry MD Bumped Appointment 05/11/2024 [place] [address] Tong Norman MD Vasomotor rhinitis 04/30/2024 3:00 PM EDT - 04/30/2024 11:59 PM EDT Hospital Encounter XRay at [address] [place] [address] Tarik Henry MD Primary osteoarthritis of both first carpometacarpal joints Discharge Disposition: Home 04/30/2024 2:30 PM EDT Office [place] [address] Tarik Henry MD Primary osteoarthritis of both first carpometacarpal joints (Primary Dx) 04/29/2024 Travel from Last 3 Months Immunizations Name Administration Dates Next Due Influenza PF, Split 06/01/2016 Influenza Quadrivalent, Preservative Free 2018 Influenza Trivalent w/Preservative 06/10/2014 Family History Medical History Relation Comments Depression Father Lymphoma Maternal Aunt lymph node CA Depression Mother Osteoporosis Mother Ovarian Cancer Mother Breast Cancer Paternal Grandmother Colorectal Cancer Neg Hx Relation Status Comments Father Alive Maternal Aunt Alive Mother Alive Paternal Grandmother Social History Tobacco Use Types Packs/Day Years Used Date Smoking Tobacco: Never Passive Smoke Exposure: Never Smokeless Tobacco: Never Tobacco Cessation:Counseling Given: Not Answered Alcohol Use Standard Drinks/Week Comments No 0 (1 standard drink = 0.6 oz pur e alcohol) [facility] Inpatient Questions Answer Date Recorded Does Anyone [...] Orientation Straight 03/23/2024 9: 08 AM EDT Last Filed Vital Signs Vital Sign Reading Time Taken Comments Blood Pressure 149/84 06/09/2024 2:11 PM EDT Pulse 68 06/09/2024 2:11 PM EDT Temperature 35.9 ??C (96.6 ??F) 06/09/2024 2:11 PM ED T Respiratory Rate 16 06/09/2024 2:11 PM EDT Oxygen Saturation 100% 06/09/2024 2:11 PM EDT Inhaled Oxygen Concentration - - Weight 64 kg (141 lb) 06/09/2024 2:11 PM EDT Height 170.2 cm (5' 7) 06/09/2024 2:11 PM EDT Body Mass Index 22.08 06/09/2024 2:11 PM EDT Plan of Treatment Upcoming Encounters Date Type Department Care Team (Late st Contact Info) Description 08/07/2024 3:30 PM EST Office [place] [phone] Tarik Henry MD [facility] [place] [address] 09/22/2024 7:00 AM EST [place] [phone] Luis Michael Jr., MD [facility] [place] [address] 09/22/2024 8:00 AM EST [place] [phone] Luis Michael Jr., MD [facility] [place] [address] Health Maintenance Due Date Last Done Comments CT Colonography 1963 Colonoscopy 1963 Colorectal Cancer Screening 1963 FIT DNA 1963 FIT 1963 Sigmoidoscopy (10 year) with FIT yearly 1963 Sigmoidoscopy 1963 Pneumococcal Vaccine: At-Ris k 5-64yrs (1 of 2 - PCV) 1969 HIV screen 1981 Hepatitis C Screening 1981 Tetanus/Diphtheria/Pertussis Vaccines (1 - Tdap) 1982 Breast Cancer Share Decision Needed 2003 Zoster vaccine (1 of 2) 2013 Advance Directive 2018 RSV Vaccine (1 - Risk 60-74 years 1-dose series) 2023 PAP Smear 10/21/2023 10/21/2020, 07/26, 05/01/2016, Additional history exists Covid-19 Vaccine (1 - 2023-2 5 season) 2024 Influenza (Flu) vaccine (1 o f 1 - Influenza standard series) 04/26/2024 06/03/2019, 06/01/2016, 06/10/2014 Breast Cancer screening 03/25/2026 03/25/20 24, 11/13/2022, 11/02/2021, Additional history exists HPV test Discontinued 10/21/2020, 05/01/2016 Medical Devices Implanted Type Area Weed Cooking Operator Device Identifier Shelf Expiration Date Model / Serial / Lot Stent Ureteral [id number] Pgtl Soft Ptfe Tria ([id number]) - [id number] Implanted:Qty : 1 on 03/15/2023 by Luis Michael Jr., MD at [facility] IMPLANTS Left: Ureter [employer] [id number] 12/03/2025 [id number] Procedures Procedure Name Priority Date/Time Associated Diagnosis Comments MRI WRIST LEFT WO CONTRAST Routine 07/07/2024 3:30 PM EST Pain in left hand Acute pain of left wrist XR WRIST 3 VIEWS LEFT Routine 07/06/2024 4:11 PM EST Pain in left hand Acute pain of left wrist XR HAND MIN 3 VIEWS BILAT Routine 04/30/2024 3:26 PM EDT Primary osteoarthritis of both first carpometacarpal joints MAMMO SCREENING CAD AND ANTHONY BILATERAL Routine 03/25/2024 1:25 PM EDT Encounter for screening mammogram for breast cancer HPV Routine 10/21/2020 2:20 PM EST POWER PLANT OPERATIONS MANAGER CYTOLOGY FINAL REPORT Routine 10/21/2020 2:20 PM EST from Last 3 Months or Most Recently Relevant to Health Maintenance Results * MRI Wrist wo Contrast Left (Generic) (07/07/2024 3:30 PM EST) Pathologist [employer] WORKSTATION ID [id number] RAD Anatomical Region Laterality Modality Wrist Left [...] who have questions please contact the health auto care center manager that requested your imaging first. ? Narrative 07/07/2024 3:53 PM EST EXAMINATION: MRI [...] along the volar aspect of the trapezium ([id number], image 20 and series 4001, image 20). [...] patients who have questions please contactthe health auto care center manager that requested your imaging first. Tarik Henry MD [facility] MRI ORDERABLES * XR Wrist 3 Views Left (07/06/2024 4:11 PM EST) [email or web address] Signature WORKSTATION ID [id number] RAD Anatomical Region Laterality Modality Left Digital [...] who have questions please contact the health auto care center manager that requested your imaging first. ? Narrative 07/07/2024 10:39 AM EST EXAMINATION: XR [...] patients who have questions please contactthe health auto care center manager that requested your imaging first. Tarik Henry MD IMG DX ORDERABLES * XR Hand Min 3 views Bilat (Generic) (04/30/2024 3:26 PM EDT) WORKSTATION ID [id number] RAD Anatomical Region Laterality Modality Hand Bilateral Digital Radiogra phy Impressions 05/01/2024 3:28 PM EDT Minimal bilateral hand osteoarthropathy. Thank you for letting us participate in the care of this patient. ??If you are a health care provider and have any questions regarding this report, please contact the number below. ??For patients who have questions please contact the health auto care center manager that requested your imaging first. ? Narrative 05/01/2024 3:28 PM EDT EXAMINATION: XR HAND MIN 3 VIEWS BILAT (GENERIC) CLINICAL HISTORY: bilat [facility] OA M18.0, Bilateral primary osteoarthritis of first carpometacarpal joints TECHNIQUE: PA, oblique and lateral views BILATERAL hands COMPARISON: Bilateral wrist radiographs August 30, 2023 Left wrist MRI February 01, 2024 FINDINGS: Right: Bones are intact with normal mineralization. No erosion or periostitis. Mild narrowing of the basal, index and long finger distal interphalangeal joints with small osteophytes. No subluxation. Soft tissues are normal. Left: Bones are intact with normal mineralization. No erosion or periostitis. Mild narrowing of the basal; thumb interphalangeal; index and long finger distal interphalangeal joints with small osteophytes. No subluxation. Soft tissues are normal. Procedure Note Swapna Cedeño MD - 05/01/2024 EXAMINATION: XR HAND MIN 3 VIEWS BILAT (GENERIC) CLINICAL HISTORY: bilat CMC OA M18.0, Bilateral primary osteoarthritis of first carpometacarpal joints TECHNIQUE: PA, oblique and lateral views BILATERAL hands COMPARISON: Bilateral wrist radiographs August 30, 2023 Left wrist MRI February 01, 2024 FINDINGS: Right: Bones are intact with normal mineralization. No erosion orperiostitis. Mild narrowing of the basal, index and long finger distal interphalangealjoints with small osteophytes. No subluxation. Soft tissues are normal. Left: Bones are intact with normal mineralization. No erosion orperiostitis. Mild narrowing of the basal; thumb interphalangeal; index and long fingerdistal interphalangeal joints with small osteophytes. No subluxation. Softtissues are normal. IMPRESSION Minimal bilateral hand osteoarthropathy. Thank you for letting us participate in the care of this patient. If youare a health care provider and have any questions regarding this report,please contact the number below. For patients who have questions please contactthe health auto care center manager that requested your imaging first. Tarik Henry MD IMG DX ORDERABLES * Mammo Screening Cad and Anthony Bilateral (03/25/2024 1:25 PM EDT) WORKSTATION ID [id number] RAD Anatomical Region Laterality Modality Breast Bilateral Mammography Impressions 03/30/2024 9:47 AM EDT No mammographic evidence of malignancy. Routine screening mammography is recommended. FINAL ASSESSMENT: BI-RADS CATEGORY 2: Benign * ??Regular screening mammograms starting at age 40 reduce the risk of from breast cancer. * ??Individuals should discuss the risks and benefits with their provider to determine their preferred breast cancer screening schedule, and at what age screening should stop. * ??Individuals should report any breast changes to a health care provider right away. * ??Some Individuals, because of their family history, a genetic tendency, or other factors, should consider being screened with annual breast MRI as well as with mammograms. * ??Screening mammography may not detect 10-15% of?breast cancers. Thank you for letting us participate in the care of this patient. ??If you are a health care provider and have any questions regarding this report, please contact the number below. ??For patients who have questions please contact the health auto care center manager that requested your imaging first. ? Electronically signed by: Georgette Guadalupe MD, [facility] ([phone]), at 03/30/2024 9:47 AM Narrative 03/30/2024 9:47 AM EDT EXAMINATION: MAMMO SCREENING CAD AND ANTHONY BILATERAL REASON FOR EXAM: Screening TECHNIQUE: CC and MLO views were obtained of BOTH breasts. 2D and 3D tomosynthesis images were obtained. Computer aided detection was used. COMPARISON: Comparison was made to the prior relevant examinations. BREAST DENSITY: The breast tissue is heterogeneously dense, which may obscure small masses. FINDINGS: There are no suspicious microcalcifications, masses, or areas of distortion. Incidental finding of multiple waxing and waning well-defined masses consistent with cysts ??in the bilateral breasts. Janet Isa Petar GONCALVES IMG MAMMO ORDERABLES * HPV (10/21/2020 2:20 PM EST) HPV16 NEGATIVE NEGATIVE [facility] HPV 18 NEGATIVE NEGATIVE [facility] HPV Other HR NEGATIVE NEGATIVE [facility] HPV Interpretation See Comment [facility] Comment: NEGATIVE for high-risk HPV *. * Testing negative for high risk HPV means that the specimen is negative for the following 14 types tested: ??types 16, 18, 31, 33, 35, 39, 45, 51, 52, 56, 58, 59, 66, and 68. ??The test is not intended to detect low risk HPV types. Lisa Brayan HPV test Specimen: HPV Testing - Cytology Liquid Based Prep Cervical swab (specimen) 10/21/2020 2:20 PM EST 10/24/2020 6:07 PM EST Narrative Resulting Agency Comment Spec In Lab Cece Graham CNM PATHOLOGY/CYTOLO GY ORDERABLES [facility] [place] [address] * Teacher Advisor Cytology Final Report (10/21/2020 2:20 PM EST) Teacher Advisor Cytology Final Report [id number] ? Location: 5L The signing pathologist has (i) examined the relevant preparation(s) for the specimen(s) and (ii) rendered or confirmed the diagnosis(es). . ? Teacher Advisor Final DIAGNOSIS Other Negative for squamous intraepithelial lesion (TIGIST). See discussion. For consensus guidelines for the management of cervical cancer screening test results, please see: ?? http://www.asccp.o rg . Electronically signed by: ??Alvino Nash MD Verified: ??11/05/2020 ?Pathologist Performed at: ??-[facility] Dept. of Pathology, [place], [place] DISCUSSION Endometrial cells present in a [...] types tested: types 16, 18, 31, 33, 35, 39, 45, 51, 52, 56, 58, 59, 66, and 68. The test is not intended to detect low risk HPV types. Lisa brayan HPV test Specimen: HPV Testing - Cytology Liquid Based Prep The Lisa brayan ? HPV test was validated, performed and results reported through the [facility] ([facility]) at [facility]. ? - David Avilez, PhD, [facility], Director-[facility] STATEMENT OF ADEQUACY Specimen submitted is satisfactory. Endocervical component present. CLINICAL INFORMATION HPV Option: ?Concurrent HPV and Pap CT/NG Option: ?No Preparation: ? Liquid based Pap Specimen Source: ? Cervical/Endocervi beena LMP: ? n/a Hysterectomy: ?No : ?No : ?No I.U.D.: ?Yes Pelvic Radiation: ?No Hist Abnl Pap/Biopsy: ?No Prior POWER PLANT OPERATIONS MANAGER Therapy: ? No Hist of HPV Vaccine: ? No . CLINICAL INFORMATION ICD Diagnosis: ? Z12.4 Encounter for screening for malignant neoplasm of cervix Clinical Data, Significant Therapy and Clinical Impression ?? : ?_ This Pap Test has been evaluated with the assistance of the TopadmitPrep Pap Test Imaging System. Note: The Pap test is a screening test for cervical cancer with an inherent false-negative rate dependent upon several variables. For further information please contact the [facility] Laboratory. Reference: Devika LEON. Spinner Frame of Pap Smear Results. In: Sukumar BS, Roni HH, ed. The Pap Smear. [place]: Jonah, 2002: 71-77. [facility] 10/21/2020 2:20 PM EST Cece Graham CNM PATHOLOGY/CYTOLO GY ORDERABLES [facility] [place] [address] from Last 3 Months or Most Recently Relevant to Health Maintenance Advance Directives * Full Code (Latest Code Status on File) Date Activated Date Inactivated Comments 04/18/2017 12:11 PM 04/18/2017 5:24 PM Question Answer Comments Does patient have capacity to make decision: Yes Care Teams Animal Herder Relationship Specialty Start Date End Date David Lockhart PA [address] [place] [address] PCP - General Family Medicine 02/11/24
--- OUTSIDE RECORDS SUMMARY | 2024-07-20 18:24 | XMS_ITS | Encounter Summary ---
Author Organization [facility] [place] [address] Care Team Providers Care Program Proposals Coordinator Name Role Phone David Lockhart Primary Care Provider [phone]- [phone] Encounter Details Date Type Department Care Team (Late st Contact Info) Description 07/08/2024 Notes [place] [phone] Tarik Henry MD [facility] [place] [address] Social History Tobacco Use Types Packs/Day Years Used Date Smoking Tobacco: Never Passive Smoke Exposure: Never Smokeless Tobacco: Never Alcohol Use Standard Drinks/Week Comments No 0 (1 standard drink = 0.6 oz pur e alcohol) [facility] Inpatient Questions Answer Date Recorded Does [...] Progress Notes * Tarik Henry MD - 07/08/2024 12:34 PM EST Patient called to discuss the results of her hand MRI. We explained to her that she has a subtle fracture that was not picking up on the x-ray, however it is not displaced. We recommend she follow-upwith the hand surgeon in order to further evaluate any need for further treatments at the hand. Additionally we explained that she has a scapholunate ligament partial tear and bone bruising at the scaphoid. Hopefully she will feel better once the bruising and fracture heal. I defer management to the hand surgeon she is going to see for further care in this area. documented in this encounter Plan of Treatment Upcoming Encounters Date Type Department Care Team (Late st Contact Info) Description 08/07/2024 3:30 PM EST Office [place] [address] Tarik Henry MD [facility] [address] [place] [address] 09/22/2024 7:00 AM EST [place] [phone] Luis Michael Jr., MD [facility] [place] [address] 09/22/2024 8:00 AM EST [place] [address] Luis Michael Jr., MD [facility] [place] [address] documented as of this encounter Visit Diagnoses Not on filedocumented in this encounter Care Teams Program Proposals Coordinator Relationship Specialty Start Date End Date David Lockhart PA [address] [place] [address] PCP - General Family Medicine 02/11/24 documented as of this encounter
--- OUTSIDE RECORDS SUMMARY | 2024-07-20 18:24 | XMS_ITS | Encounter Summary ---
Author Organization [facility] [place] [address] Care Team Providers Care Streetcar Operator Name Role Phone David Lockhart Primary Care Provider [phone]- [phone] Encounter Details Date Type Department Care Team (Latest Contact Info) Description 07/06/2024 Travel Social History Tobacco Use Types Packs/Day [...] 3:30 PM EST Office [place] [address] Tarik Henry MD [facility] [place] [address] 09/22/2024 7:00 AM EST Appointment [place] [address] Luis Michael Jr., MD [facility] [place] [address] 09/22/2024 8:00 AM EST Office [place] [address] Luis Michael Jr., MD [facility] [place] [address] documented as of this encounter Visit Diagnoses Not on filedocumented in this encounter Care Teams Streetcar Operator Relationship Specialty Start Date End Date David Lockhart PA [address] [place] [address] PCP - General Family Medicine 02/11/24 documented as of this encounter
--- OUTSIDE RECORDS SUMMARY | 2024-07-20 18:24 | XMS_ITS | Encounter Summary ---
[place] [address] Care Team Providers Care Pay Agent Name Role Phone David Lockhart Primary Care Provider [phone] Reason for Referral * Diagnostic Test (Routine) - Closed Specialty Diagnoses / Procedures Referred By Contac t Referred To Contact Radiology Diagnoses Pain in left hand Acute pain of left wrist Procedures MRI Wrist wo Contrast Left (Generic) Tarik Henry MD [facility] [place] [address] [place] [address] Referral ID Status Reason Start Date Expiration Date V isits Requested Visits Authorized [id number] Closed Specialty Service Requested 07/06/2024 01/03/2026 1 1 Reason for Visit * Diagnostic Test (Routine) - Closed Specialty Diagnoses / Procedures Referred By Contac t Referred To Contact Radiology Diagnoses Pain in left hand Acute pain of left wrist Procedures MRI Wrist wo Contrast Left (Generic) Tarik Henry MD [facility] [place] [address] [place] [address] Referral ID Status Reason Start Date Expiration Date V isits Requested Visits Authorized [id number] Closed Specialty Service Requested 07/06/2024 01/03/2026 1 1 Encounter Details Date Type Department Care Team (Latest Contact Info) Description 07/07/2024 2:28 PM EST - 07/07/2024 11:59 PM EST Hospital [place] [address] Tarik Henry MD [facility] [place] [address] Pain in left hand; Acute pain of left wrist Discharge Disposition: Home Social History Tobacco Use Types Packs/Day Years [...] AM EDT documented as of this encounter Medications at Time of Discharge Medication Sig Dispensed Refills Start Date End Date ibuprofen (Advil) 800 mg tablet Take 1 tablet by mouth Three Times Daily for DHE. 06/02/2024 ipratropium (Atrovent) 21 mcg (0.03 %) nasal sprayIndications:Vasom otor rhinitis 2 sprays by Nasal route 2 times daily. [place] into each nostril. 30 mL 11 06/09/2024 estradioL 0.1 mg/24 hr Patch Semiweekly APPLY 1 PATCH TO SKIN AND CHANGE TWICE A WEEK DIRECTED 8 patch 12 03/11/2024 hydroCHLOROthiazide (Microzide) 12.5 mg capsule Take 1 capsule by mouth 2 times daily. 60 capsule 11 03/09/2024 03/09/2025 sertraline (Zoloft) 25 mg tablet Take 100 mg by mouth daily. 02/13/2023 estradioL (ESTRACE) 0.01 % (0.1 mg/gram) Cream Place 2 g vaginally twice a week. 42.5 g 12 11/22/2022 Symbicort 160-4.5 mcg/actuation HFA Aerosol InhalerIndications:Unc omplicated asthma, unspecified asthma severity, unspecified whether persistent Inhale 1 puff into the lungs 2 times daily. May also inhale 1 puff every 4 hours as needed (Shortness of breath, cough or wheezing (up to 4 puffs total daily)). 1 each 07/25/2022 ondansetron (Zofran) 4 mg Tablet Take 4 mg by mouth every 8 hours as needed. 01/17/2022 ProChamber Spacer USE DIRECTED WITH INHALER 12/25/2021 Allergy Relief, fexofenadine, 180 mg Tablet SWALLOW 1 TABLET BY MOUTH WHOLE WITH WATER ONCE A DAY DO NOT TAKE WITH FRUIT JUICES 03/20/2022 benzonatate (Tessalon) 100 mg Capsule Take 100 mg by mouth 3 times daily as needed. 04/02/2022 calcium carbonate/vitamin D3 (VITAMIN D-3 ORAL) Take by mouth daily. b complex vitamins Capsule Take 1 capsule by mouth daily. MAGNESIUM ORAL Take by mouth. 2 caps QD acyclovir (ZOVIRAX) 200 mg Capsule as needed. 01/01/2020 galantamine (RAZADYNE) 12 mg Tablet 12 mg 2 times daily. 0 05/31/2018 memantine (NAMENDA) 5 mg Tablet 5 mg 2 times daily. 0 05/19/2018 azelastine (ASTELIN) 137 mcg (0.1 %) Aerosol, [place] as needed. 0 06/17/2017 SUMAtriptan (IMITREX) 100 mg Tablet as needed for Migraine. 1 04/13/2016 hydrocortisone (WESTCORT) 0.2 % Cream Apply topically as needed. 07/25/2015 multivitamin (THERAGRAN) tablet Take 1 tablet by mouth daily. montelukast (SINGULAIR) 10 mg tablet Take 10 mg by mouth daily as needed. 12/07/2010 albuterol (ACCUNEB) 0.63 mg/3 mL nebulizer solution 08/24/2010 documented as of this encounter Plan of Treatment Upcoming Encounters Date Type Department Care Team (Late st Contact Info) Description 08/07/2024 3:30 PM EST Office Visit [place] [address] Tarik Henry MD [facility] DR ORTHOPAEDIC SURGERY [place], [place] [id number] 09/22/2024 7:00 AM EST Appointment [place] [address] Luis Michael Jr., MD [facility] [place] [address] 09/22/2024 8:00 AM EST Office Visit [place] [address] Luis Michael Jr., MD [facility] [place] [address] documented as of this encounter Procedures Procedure Name Priority Date/Time Associated Diagnosis Comments MRI WRIST LEFT WO CONTRAST Routine 07/07/2024 3:30 PM EST Pain in left hand Acute pain of left wrist documented in this encounter Results * MRI Wrist wo Contrast Left (Generic) (07/07/2024 3:30 PM EST) Vow To Be Chic WORKSTATION ID [id number] [facility] Anatomical Region Laterality Modality Wrist Left Magnetic [...] have questions please contact the health career education teacher that requested your imaging first. ? Electronically signed by: Romy Waller MD, [facility] ([phone]), at 07/07/2024 3:53 PM Narrative 07/07/2024 3:53 [...] along the volar aspect of the trapezium ([id number], image 20 and series 4001, image 20). [...] patients who have questions please contactthe health career education teacher that requested your imaging first. Electronically signed by: Romy Waller MD, [facility]([phone]), at 07/07/2024 3:53 PM Tarik Henry MD IMG MRI ORDERABLES documented in this encounter Visit Diagnoses Diagnosis Pain in left hand Acute pain of left wrist documented in this encounter Care Teams Pay Agent Relationship Specialty Start Date End Date David Lockhart PA [address] [place] [address] PCP - General Family Medicine 02/11/24 documented as of this encounter
--- OUTSIDE RECORDS SUMMARY | 2024-07-20 18:24 | XMS_ITS | Continuity of Care Document ---
Author Organization [facility] Address [address] [place] [address] Care Team Providers Care Wire Inspector Name Role Phone ELKINIsaRYANA Isa Primary Care Physician [phone] Encounter [facility] NBR [id number] Date(s): 06/01/24 - 06/01/24 [facility] [address] [place] [address], [place] [address] Encounter Diagnosis Thumb sprain(Discharge Diagnosis) - 06/01/24 Unspecified sprain of left thumb, initial encounter(Final) - Unspecified fall, initial encounter(Final) - Discharge Disposition: Home or Self Care Attending Physician: Alvino Lira DO Admitting Physician: Alvino Lira DO Allergies, Adverse Reactions, Alerts Substance Criticality Severity Reaction Reaction Severity Status Animal Dander Unable to assess criticality Unknown Active escitalopram Low criticality Mild Insomnia A ctive Seasonal Unable to assess criticality Unknown Unknown Active Tree Pollen Unable to assess criticality Unknown Unknown Active Mold Unable to assess criticality Unknown Unknown Active Environmental Smoke Unable to assess criticality Unknown Unknown Active Assessment and Plan Extracted from: Title:ED Provider Note Author:Mary Jane Grullon Date:06/01/24 Assessment/Plan 1.??Thumb sprain??S63.609A ??Patient is placed in an Truong wrap but she does not feel she will tolerate a thumb spica. ??She??will adjust this as needed she will utilize Tylenol and Motrin and will follow-up with primary care. ??She may need hand surgery??to evaluate this if there is tendon injury. ??Patient agrees with and understands discharge plan Orders: Discharge Patient, 06/01/24 16:56:00 EDT, Home Independently Patient Education Thumb Sprain Follow Up With When Contact Information Tylenol/Motrin for Pain/Fever Relief Additional Instructions: Utilize Motrin 400-600 mg??every 6-8 hours as needed discomfort, Tylenol 1000 mg every 8 hours??as needed Follow-up with your primary care Within 1 week Additional Instructions: Follow-up with your primary care as needed, they will be able to reevaluate if necessary Return to ED if concerns ?? 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 Confirmed Active Cognitive impairment 1 Confirmed [...] rotator cuff of left shoulder Confirmed Active Osteoarthritis of right knee Confirmed Active Osteoporosis Confirmed Active Right patellofemoral syndrome Confirmed Active PONV - Postoperative nausea and vomiting Confirmed Active Posterior rhinorrhea Confirmed Active Allergic rhinitis due to pollen Confirmed Active SOBOE - Shortness of breath on exertion Confirmed Active Subacromial impingement of left shoulder Confirmed Active Tear of lateral meniscus of right knee Confirmed Active Tear of medial meniscus of right knee Confirmed Active 1followed [facility] on meds Procedures Procedure Date Related Diagnosis Body Site Status Arthroscopy Knee (Right) 1 12/11/23 Completed Arthroscopy of knee Compl eted Arthroscopy of shoulder C ompleted Bunionectomy Completed 1auto-populated from documented surgical case Results Radiology Reports * Exam Date Time Procedure Performing Provider Status 06/01/24 4:05 PM XR Wrist Complete 3+ Views Left DomainUser, Generated; Auth (Verified) Notes: (XR Wrist Complete 3+ Views Left) Reason For Exam: wrist pain please include scaphoid view XR Wrist Complete 3+ Views Left EXAM DESCRIPTION: XR Wrist Complete 3+ Views Left 06/01/2024 INDICATION: WRIST PAIN PLEASE INCLUDE SCAPHOID VIEW COMPARISON: None IMPRESSION: No acute fracture or dislocation No regional arthritic changes Small area of smooth cortical thickening involving the base of the 4th metacarpal which may reflect sequela of old injury or small sessile osteochondroma. No suspicious focal lytic or sclerotic lesion. No regional radiopaque soft tissue foreign body. JOB #: [id number] Final Signed by: Mykel Barkley MD Signed (Electronic Signature): 06/01/2024 4:24 pm * Exam Date Time Procedure Performing Provider Status 06/01/24 4:05 PM XR Finger(s) 2+ Views Left DomainUser, Generated; Modified Notes: (XR Finger(s) 2+ Views Left) Reason For Exam: Chronic left thumb injury XR Finger(s) 2+ Views Left EXAM DESCRIPTION: XR Finger(s) 2+ Views Left 06/01/2024 INDICATION: CHRONIC LEFT THUMB INJURY TECHNIQUE: Left thumb, three views COMPARISON: None IMPRESSION: No acute fracture or dislocation No significant regional arthritic changes No focal lytic or sclerotic lesion No regional radiopaque soft tissue foreign body. JOB #: [id number] Final Signed by: Mykel Barkley MD Signed (Electronic Signature): 06/01/2024 4:09 pm Social History Social History Type Response Tobacco Never tobacco user T obacco Use:. Sex Sex Representation Female (finding) Hospital Discharge Instructions Patient Education 06/01/2024 15:57:26 Thumb Sprain Thumb Sprain A thumb sprain is an injury to one of the bands of tissue that connect bones to each other (a ligament) in your thumb. The ligament may be stretched too much, or it may be torn. A tear can be either partial or complete. How bad, or severe, the sprain is depends on how much of the ligament was damaged or torn. What are the causes? A thumb sprain is often caused by a fall or an accident, such as when you hold your hands out to catch something or to protect yourself. What increases the risk? This injury is more likely to occur in people who play sports that involve: ??? A risk of falling, such as skiing. ??? Catching an object, such as basketball. What are the signs or symptoms? Symptoms of this condition include: ??? Not being able to move the thumb normally. ??? Swelling. ??? Tenderness. ??? Bruising. How is this diagnosed? This condition may be diagnosed based on: ??? Your symptoms and medical history. Your health care provider may ask about any recent injuries to your thumb. ??? A physical exam. ??? Imaging studies, such as X-rays, ultrasound, or MRI. How is this treated? Treatment for this condition depends on how severe your sprain is. ??? If your ligament is overstretched or partially torn, treatment usually involves keeping your thumb in a fixed position (immobilization) for at least 4 to 6 weeks. Your health care provider will apply a bandage (dressing), splint, brace, or cast to keep your thumb from moving until it heals. ??? If your ligament is fully torn, you may need surgery to reconnect the ligament to the bone. After surgery, you will need to wear a cast or splint on your thumb. Your health care provider may also recommend physical therapy to strengthen your thumb. Follow these instructions at home: If you have a removable splint, bandage, or brace: ??? Wear the splint, bandage, or brace as told by your health care provider. Remove it only as toldby your health care provider. ??? Check the skin around the splint, bandage, or brace every day. Tell your health care provider about any concerns. ??? Loosen the splint, bandage, or brace if your thumb or fingers tingle, become numb, or turn coldand blue. ??? Keep it clean and dry. If you have a nonremovable cast: ??? Do not put pressure on any part of the cast until it is fully hardened. This may take several hours. ??? Do not stick anything inside the cast to scratch your skin. Doing that increases your risk of infection. ??? Check the skin around the cast every day. Tell your health care provider about any concerns. ??? You may put lotion on dry skin around the edges of the cast. Do not put lotion on the skin underneath the cast. ??? Keep it clean and dry. Bathing ??? Do not take baths, swim, or use a hot tub until your health care provider approves. Ask your health care provider if you may take showers. You may only be allowed to take sponge baths. ??? If your splint, bandage, brace, or cast is not waterproof: ??? Do not let it get wet. ??? Cover it with a watertight covering when you take a bath or shower. Managing pain, stiffness, and swelling ??? If directed, put ice on your thumb. To do this: ??? If you have a removable splint, bandage, or brace, remove it as told by your health care provider. ??? Put ice in a plastic bag. ??? Place a towel between your skin and the bag, or between your cast and the bag. ??? Leave the ice on for 20 minutes, 2???3 times a day. ??? Remove the ice if your skin turns bright red. This is very important. If you cannot feel pain, heat, or cold, you have a greater risk of damage to the area. ??? Move your fingers often to reduce stiffness and swelling. ??? Raise (elevate) the injured area above the level of your heart while you are sitting or lying down. Activity ??? Return to your normal activities as told by your health care provider. Ask your health care provider what activities are safe for you. ??? Do physical therapy exercises as directed. After your splint, bandage, brace, or cast is removed, your health care provider may recommend that you: ??? Move your thumb in circles. ??? Touch your thumb to your pinky finger. ??? Do these exercises several times a day. ??? Ask your health care provider if you may use a hand milk collector to strengthen your muscles. ??? If your thumb feels stiff while you are exercising it, try doing the exercises while soaking your hand in warm water. Driving ??? Ask your health care provider when it is safe to drive if you have a splint, bandage, brace, orcast on your hand or thumb. ??? Ask your health care provider if the medicine prescribed to you requires you to avoid driving or using machinery. General instructions ??? Take [id number] and prescription medicines only as told by your health care provider. ??? Do not use any products that contain nicotine or tobacco. These products include cigarettes, chewing tobacco, and vaping devices, such as e-cigarettes. These can delay bone healing. If you need help quitting, ask your health care provider. ??? Do not wear rings on your injured thumb. ??? Keep all follow-up visits. This is important. Contact a health care provider if: ??? You have pain that gets worse or does not get better with medicine. ??? You have bruising or swelling that gets worse. ??? Your cast, brace, or splint is damaged. Get help right away if: ??? Your thumb feels numb, tingles, turns cold, or turns blue, even after loosening your splint, bandage, or brace. Summary ??? A thumb sprain is an injury to one of the bands of tissue that connect bones to each other (a ligament) in your thumb. ??? Thumb sprains are more likely to occur in people who play sports that involve a risk of fallingor having to catch an object. ??? Treatment will depend on how severe the sprain is, but it will require keeping the thumb in a fixed position (immobilization). It might require surgery. ??? Make sure you understand and follow all of your health care provider's instructions for home care. This information is not intended to replace advice given to you by your health care provider. Make sure you discuss any questions you have with your health care provider. Document Revised: 07/05/2021 Document Reviewed: 07/05/2021 [employer] Patient Education ?? 2022 [employer]. Follow Up Care 06/01/2024 15:12:22 With:Tylenol/Motrin for Pain/Fever Relief Address: When: Unknown Comments:Utilize Motrin 400-600 mg??every 6-8 hours as needed discomfort, Tylenol 1000 mg every 8 hours??as needed With:Follow-up with your primary care Address: When:1 week Comments:Follow-up with your primary care as needed, they will be able to reevaluate if necessaryReturn to ED if concerns Physician Emergency department Note * АЛЕКСАНДР Grullon: PERFORM Event Display: ED Note Physician Authored Date: [id number] JESSICA GTZ :1965 Age:58 years Sex:Female Visit Date:06/01/2024 Primary Care Physician: BAKARI PATEL Basic Information Time Seen: АЛЕКСАНДР Grullon / 06/01/2024 15:15 Chief Complaint fell 2 weeks ago , seen at [facility] ??CT & XR . Left thumb purple bruising ??states thumb in not correct location . ice pack applied History Of Present Illness: Patient is 58-year-old female presents emergency department after having a fall??4 days ago. ??She notes at that time she was seen in [facility]??and had a x-ray of her hand which was negative??along with ahead CT which was negative. ??Since then she has had significant left thumb discomfort with extensive bruising over the thenar prominence with tenderness over the snuffbox as well as??into the wrist.??Patient notes that if her thumb is extended??she does have some numbness and tingling and has significant pain with any movement. ??She was evaluating her thumb earlier today felt as though it did not look to be in place and??comes??for reevaluation. Review of Systems: See HPI Physical Exam Vitals & Measurements Pain Score:??5?? Patient alert oriented age-appropriate nontoxic Neck supple nontender EOM intact, PERRL, sclera anicteric Head is normocephalic atraumatic Clear to auscultation Regular rate and rhythm no murmurs Left thumb is evaluated there is significant pain with passive range of motion,??lateral stability unable to be determined due to discomfort,??she is unable to resist any flexion or extension??she does have snuffbox tenderness Wrist extension and flexion is??appreciated Medical Decision Making: X-rays repeated and is unremarkable Procedure No Qualifying Data Assessment/Plan 1.??Thumb sprain??S63.609A ??Patient is placed in an Truong wrap but she does not feel she will tolerate a thumb spica. ??She??will adjust this as needed she will utilize Tylenol and Motrin and will follow-up with primary care. ??She may need hand surgery??to evaluate this if there is tendon injury. ??Patient agrees with and understands discharge plan Orders: Discharge Patient, 06/01/24 16:56:00 EDT, Home Independently Patient Education Thumb Sprain Follow Up With When Contact Information Tylenol/Motrin for Pain/Fever Relief Additional Instructions: Utilize Motrin 400-600 mg??every 6-8 hours as needed discomfort, Tylenol 1000 mg every 8 hours??as needed Follow-up with your primary care Within 1 week Additional Instructions: Follow-up with your primary care as needed, they will be able to reevaluate if necessary Return to ED if concerns Medication Reconciliation Unchanged acyclovir (acyclovir 200 mg oral capsule)1 Capsules Oral (given by mouth) 5 times per day as neededrash. ?? albuterol (Albuterol (Eqv-ProAir HFA) 90 mcg/inh inhalation aerosol)2 Puffs Inhale (breathe in) every 6 hours as needed as needed for wheezing. ?? azelastine nasal (azelastine 137 mcg/inh (0.1%) nasal spray)1 Sprays Nasal (into the nose) 2 times a day. Refills: 1. ?? budesonide-formoterol (Symbicort 160 mcg-4.5 mcg/inh inhalation aerosol)2 Puffs Inhale (breathe in)2 times a day as needed wheezing. ?? cyclobenzaprine (cyclobenzaprine 5 mg oral tablet)20 EA, 0 Refill(s). ?? estradiol (Estradiol Patch 0.1 mg/24 hours twice weekly transdermal film, extended release)1 patch(es) Transdermal (apply on the skin) Mon/Fri. ?? estradiol topical (estradiol 0.1 mg/g vaginal cream)2 Gram Vaginal (in the vagina) Mon/Fri. ?? fexofenadine (Cami 24 Hour Allergy oral tablet)1 tab Oral (given by mouth) every day. ?? fluorometholone ophthalmic (fluorometholone 0.1% ophthalmic suspension)5 mL, 0 Refill(s), INSTILL ONE DROP IN EACH EYE TWO TIMES A DAY. ?? galantamine (galantamine 12 mg oral tablet)1 tab Oral (given by mouth) 2 times a day. ?? [id number] Milligrams Oral (given by mouth) every day. also takes biotin, D, zinc, immune. ?? hydroCHLOROthiazide (hydroCHLOROthiazide 12.5 mg oral capsule)1 Capsules Oral (given by mouth) every day. ?? hydrocortisone topical (hydrocortisone valerate 0.2% topical ointment)60 g, 0 Refill(s), APPLY TO AFFECTED SKIN THREE TIMES A DAY NEEDED. ?? ibuprofen (ibuprofen 800 mg oral tablet)1 tab Oral (given by mouth) 3 times a day as needed as needed for pain. ?? ipratropium nasal (ipratropium 21 mcg/inh (0.03%) nasal spray)2 Sprays Nasal (into the nose) 2 times a day. ?? magnesium oxide (magnesium oxide 400 mg (241.3 mg elemental magnesium) oral tablet)1 tab Oral (given by mouth) every night at bedtime. ?? memantine (memantine 5 mg oral tablet)1 tab Oral (given by mouth) 2 times a day. ?? montelukast (montelukast 10 mg oral tablet)90 EA, 0 Refill(s), TAKE ONE TABLET BY MOUTH EVERY DAY. ?? multivitamin (Multi Vitamin+)1 tab Oral (given by mouth) every day. ?? sertraline (sertraline 100 mg oral tablet)90 EA, 0 Refill(s), TAKE ONE TABLET BY MOUTH EVERY DAY. ?? sertraline (sertraline 25 mg oral tablet)30 EA, 0 Refill(s), TAKE ONE TABLET BY MOUTH EVERY DAY. ?? sertraline (sertraline 50 mg oral tablet)1.5 tab Oral (given by mouth) every day. ?? SUMAtriptan (SUMAtriptan 100 mg oral tablet)1 tab Oral (given by mouth) every day as needed as needed for migraine headache. 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 Osteoarthritis of right knee Osteoporosis PONV - Postoperative nausea and vomiting Posterior rhinorrhea Right patellofemoral syndrome SOBOE - Shortness of breath on exertion Subacromial impingement of left shoulder Tear of lateral meniscus of right knee Tear of medial meniscus of right knee Historical No qualifying data Procedure/Surgical History ???Arthroscopy Knee (Right) (12/11/2023)???Arthroscopy of knee???Arthroscopy of shoulder???Bunionectomy Allergies escitalopram??(Insomnia) Animal Dander Environmental Smoke??(Unknown) Mold??(Unknown) Seasonal??(Unknown) Tree Pollen??(Unknown) Social History Alcohol Past Electronic Cigarette/Vaping Electronic Cigarette Use: Never. Substance Use Never Tobacco Never tobacco user Tobacco Use:. Diagnostic Results XR Finger(s) 2+ Views Left 06/01/2024 16:11 EDT XR Wrist Complete 3+ Views Left 06/01/2024 16:26 EDT XR Wrist Complete 3+ Views Left ?? 06/01/24 16:24:06 EXAM DESCRIPTION: XR Wrist Complete 3+ Views Left ?? 06/01/2024 ?? INDICATION: WRIST PAIN PLEASE INCLUDE SCAPHOID VIEW ?? COMPARISON: None ?? IMPRESSION: No acute fracture or dislocation ?? No regional arthritic changes ?? Small area of smooth cortical thickening involving the base of the 4th metacarpal which may reflect sequela of old injury or small sessile osteochondroma. No suspicious focal lytic or sclerotic lesion. ?? No regional radiopaque soft tissue foreign body. ? JOB #: [id number] Electronically Signed By: ?? Signed By: Mykel Barkley MD ?? XR Finger(s) 2+ Views Left ?? 06/01/24 16:09:23 EXAM DESCRIPTION: XR Finger(s) 2+ Views Left ?? 06/01/2024 ?? INDICATION: CHRONIC LEFT THUMB INJURY ?? TECHNIQUE: Left thumb, three views ?? COMPARISON: None ?? IMPRESSION: No acute fracture or dislocation ?? No significant regional arthritic changes ?? No focal lytic or sclerotic lesion ?? No regional radiopaque soft tissue foreign body. ? JOB #: [id number] АЛЕКСАНДР Grullon Emergency department Discharge instructions * АЛЕКСАНДР Grullon: PERFORM Event Display: ED Discharge Information Authored Date: [id number] JESSICA GTZ :1965 Age:58 years Sex:Female Visit Date:06/01/2024 Primary Care Physician: BAKARI PATEL Discharge Instructions We would like to thank you for allowing us to assist you with your healthcare needs. The following includes patient education materials and information regarding your injury/illness. Diagnosis from Today's Visit Thumb sprain Allergies escitalopram??(Insomnia) Animal Dander Environmental Smoke??(Unknown) Mold??(Unknown) Seasonal??(Unknown) Tree Pollen??(Unknown) What to Do Next Instructions from Your Care Team Follow with primary care??to discuss whether orthopedics is needed for intervention If your pain continues??you should follow-up with orthopedics or primary care to discuss therapy Have any question concerns or new symptoms return to the emergency department for reevaluation You Need to Schedule the Following Appointments Follow Up with??Tylenol/Motrin for Pain/Fever Relief Why: Utilize Motrin 400-600 mg??every 6-8 hours as needed discomfort, Tylenol 1000 mg every 8 hours??as needed Follow Up with??Follow-up with your primary care When:??Within 1 week Why: Follow-up with your primary care as needed, they will be able to reevaluate if necessary Return to ED if concerns You were treated today on an emergency [...] How Much When Instructions Next Dose Unchanged acyclovir (acyclovir 200 mg oral capsule) 1 Capsules Oral (given by mouth) 5 times per day as needed for rash Unchanged albuterol (Albuterol (Eqv-ProAir HFA) 90 mcg/ inh inhalation aerosol) 2 Puffs Inhale (breathe in) Every 6 hours as needed for as needed for wheezing Unchanged azelastine nasal (azelastine 137 mcg/ inh (0.1%) nasal spray) 1 Sprays Nasal (into the nose) 2 times a day Unchanged budesonide-formoterol (Symbicort 160 mcg-4.5 mcg/ inh inhalation aerosol) 2 Puffs Inhale (breathe in) 2 times a day as needed for wheezing Unchanged cyclobenzaprine (cyclobenzaprine 5 mg oral tablet) 20 EA, 0 Refill(s) ?? Unchanged estradiol (Estradiol Patch 0.1 mg/ 24 hours twice weekly transdermal film, extended release) 1 patch(es) Transdermal (apply on the skin) Mon/Fri Unchanged estradiol topical (estradiol 0.1 mg/ g vaginal cream) 2 Gram Vaginal (in the vagina) Mon/Fri Unchanged fexofenadine (Cami 24 Hour Allergy oral tablet) 1 tab Oral (given by mouth) Every day Unchanged fluorometholone ophthalmic (fluorometholone 0.1% ophthalmic suspension) 5 mL, 0 Refill(s), INSTILL ONE DROP IN EACH EYE TWO TIMES A DAY ?? Unchanged galantamine (galantamine 12 mg oral tablet) 1 tab Oral (given by mouth) 2 times a day Unchanged glucosamine 500 Milligrams Oral (given by mouth) Every day also takes biotin, D, zinc, immune ?? Unchanged hydroCHLOROthiazide (hydroCHLOROthiazide 12.5 mg oral capsule) 1 Capsules Oral (given by mouth) Every day Unchanged hydrocortisone topical (hydrocortisone valerate 0.2% topical ointment) 60 g, 0 Refill(s), APPLY TO AFFECTED SKIN THREE TIMES A DAY NEEDED ?? Unchanged ibuprofen (ibuprofen 800 mg oral tablet) 1 tab Oral (given by mouth) 3 times a day as needed for as needed for pain Unchanged ipratropium nasal (ipratropium 21 mcg/ inh (0.03%) nasal spray) 2 Sprays Nasal (into the nose) 2 times a day Unchanged magnesium oxide (magnesium oxide 400 mg (241.3 mg elemental magnesium) oral tablet) 1 tab Oral (given by mouth) Every night at bedtime Unchanged memantine (memantine 5 mg oral tablet) 1 tab Oral (given by mouth) 2 times a day Unchanged montelukast (montelukast 10 mg oral tablet) 90 EA, 0 Refill(s), TAKE ONE TABLET BY MOUTH EVERY DAY ?? Unchanged multivitamin (Multi Vitamin+) 1 tab Oral (given by mouth) Every day Unchanged sertraline (sertraline 100 mg oral tablet) 90 EA, 0 Refill(s), TAKE ONE TABLET BY MOUTH EVERY DAY ?? Unchanged sertraline (sertraline 25 mg oral tablet) 30 EA, 0 Refill(s), TAKE ONE TABLET BY MOUTH EVERY DAY ?? Unchanged sertraline (sertraline 50 mg oral tablet) 1.5 tab Oral (given by mouth) Every day Unchanged SUMAtriptan (SUMAtriptan 100 mg oral tablet) 1 tab Oral (given by mouth) Every day as needed for as needed for migraine headache Education Materials Thumb Sprain A thumb sprain is an injury to one of the bands of tissue that connect bones to each other (a ligament) in your thumb. The ligament may be stretched too much, or it may be torn. A tear can be either partial or complete. How bad, or severe, the sprain is depends on how much of the ligament was damaged or torn. What are the causes? A thumb sprain is often caused by a fall or an accident, such as when you hold your hands out to catch something or to protect yourself. What increases the risk? This injury is more likely to occur in people who play sports that involve: ? A risk of falling, such as skiing. ? Catching an object, such as basketball. What are the signs or symptoms? Symptoms of this condition include: ? Not being able to move the thumb normally. ? Swelling. ? Tenderness. ? Bruising. How is this diagnosed? This condition may be diagnosed based on: ? Your symptoms and medical history. Your health care provider may ask about any recent injuries to your thumb. ? A physical exam. ? Imaging studies, such as X-rays, ultrasound, or MRI. How is this treated? Treatment for this condition depends on how severe your sprain is. ? If your ligament is overstretched or partially torn, treatment usually involves keeping your thumb in a fixed position (immobilization) for at least 4 to 6 weeks. Your health care provider will applya bandage (dressing), splint, brace, or cast to keep your thumb from moving until it heals. ? If your ligament is fully torn, you may need surgery to reconnect the ligament to the bone. After surgery, you will need to wear a cast or splint on your thumb. Your health care provider may also recommend physical therapy to strengthen your thumb. Follow these instructions at home: If you have a removable splint, bandage, or brace: ? Wear the splint, bandage, or brace as told by your health care provider. Remove it only as told by your health care provider. ? Check the skin around the splint, bandage, or brace every day. Tell your health care provider aboutany concerns. ? Loosen the splint, bandage, or brace if your thumb or fingers tingle, become numb, or turn cold andblue. ? Keep it clean and dry. If you have a nonremovable cast: ? Do not put pressure on any part of the cast until it is fully hardened. This may take several hours. ? Do not stick anything inside the cast to scratch your skin. Doing that increases your risk of infection. ? Check the skin around the cast every day. Tell your health care provider about any concerns. ? You may put lotion on dry skin around the edges of the cast. Do not put lotion on the skin underneath the cast. ? Keep it clean and dry. Bathing ? Do not take baths, swim, or use a hot tub until your health care provider approves. Ask your healthcare provider if you may take showers. You may only be allowed to take sponge baths. ? If your splint, bandage, brace, or cast is not waterproof: ? Do not let it get wet. ? Cover it with a watertight covering when you take a bath or shower. Managing pain, stiffness, and swelling ? If directed, put ice on your thumb. To do this: ? If you have a removable splint, bandage, or brace, remove it as told by your health care provider. ? Put ice in a plastic bag. ? Place a towel between your skin and the bag, or between your cast and the bag. ? Leave the ice on for 20 minutes, 2???3 times a day. ? Remove the ice if your skin turns bright red. This is very important. If you cannot feel pain, heat, or cold, you have a greater risk of damage to the area. ? Move your fingers often to reduce stiffness and swelling. ? Raise (elevate) the injured area above the level of your heart while you are sitting or lying down. Activity ? Return to your normal activities as told by your health care provider. Ask your health care provider what activities are safe for you. ? Do physical therapy exercises as directed. After your splint, bandage, brace, or cast is removed, your health care provider may recommend that you: ? Move your thumb in circles. ? Touch your thumb to your pinky finger. ? Do these exercises several times a day. ? Ask your health care provider if you may use a hand milk collector to strengthen your muscles. ? If your thumb feels stiff while you are exercising it, try doing the exercises while soaking your hand in warm water. Driving ? Ask your health care provider when it is safe to drive if you have a splint, bandage, brace, or cast on your hand or thumb. ? Ask your health care provider if the medicine prescribed to you requires you to avoid driving or using machinery. General instructions ? Take cxej-xzj-wsxiesl and prescription medicines only as told by your health care provider. ? Do not use any products that contain nicotine or tobacco. These products include cigarettes, chewing tobacco, and vaping devices, such as e-cigarettes. These can delay bone healing. If you need help quitting, ask your health care provider. ? Do not wear rings on your injured thumb. ? Keep all follow-up visits. This is important. Contact a health care provider if: ? You have pain that gets worse or does not get better with medicine. ? You have bruising or swelling that gets worse. ? Your cast, brace, or splint is damaged. Get help right away if: ? Your thumb feels numb, tingles, turns cold, or turns blue, even after loosening your splint, bandage, or brace. Summary ? A thumb sprain is an injury to one of the bands of tissue that connect bones to each other (a ligament) in your thumb. ? Thumb sprains are more likely to occur in people who play sports that involve a risk of falling or having to catch an object. ? Treatment will depend on how severe the sprain is, but it will require keeping the thumb in a fixedposition (immobilization). It might require surgery. ? Make sure you understand and follow all of your health care provider's instructions for home care. This information is not intended to replace advice given to you by your health care provider. Make sure you discuss any questions you have with your health care provider. Document Revised: 07/05/2021 Document Reviewed: 07/05/2021 Elsevier Patient Education ?? 2022 [employer] Tests Performed Radiology XR Finger(s) 2+ Views Left 06/01/2024 16:11 EDT XR Wrist Complete 3+ Views Left 06/01/2024 16:26 EDT Patient/Typewriter Ribbon Winder Signature Patient Name:JESSICA GTZ I have received this information and my questions have been answered. Patient/Typewriter Ribbon Winder Name: Patient/Typewriter Ribbon Winder Signature: Relationship to Patient: Witness Name/Signature: Date: Electronically Signed on: 06/01/2024 16:58 EDTSigned by: Patient Care team information Care Team Personnel Name: BAKARI PATEL Position: No Access Member Role: Primary Care Physician Address: [facility] [place] [address]- Care Team Related Persons Name: LYNDA GTZ Insurance Providers Guarantor name: JESSICA GTZ Health Plan Information #: 1 Payer: [facility] Member Number: [id number] Policy Number: NA Health Plan Information #: 2 Payer: [facility] Member Number: [id number] Policy Number: NA
--- OUTSIDE RECORDS SUMMARY | 2024-07-20 18:24 | XMS_ITS | Continuity of Care Document ---
Author Organization [facility] Address [address] [place] [address] Care Team Providers Care Business Intern Name Role Phone BAKARI PATEL Primary Care Physician [phone] Encounter [facility] [facility] NBR [id number] Date(s): 06/04/24 - 06/04/24 [facility] [address] [place] [address] [place] Encounter Diagnosis Tear of lateral meniscus of right knee(Discharge Diagnosis) - 06/04/24 Chondral defect of femoral condyle(Discharge Diagnosis) - 06/04/24 Discharge Disposition: Home or Self Care Attending Physician: Romy Ponce PA-C Referring Physician: BAKARI PATEL Allergies, Adverse Reactions, Alerts Substance Criticality Severity Reaction Reaction Severity Status Animal Dander Unable to assess criticality Unknown Active escitalopram Low criticality Mild Insomnia A ctive Seasonal Unable to assess criticality Unknown Unknown Active Mold Unable to assess criticality Unknown Unknown Active Environmental Smoke Unable to assess criticality Unknown Unknown Active Tree Pollen Unable to assess criticality Unknown Unknown Active Assessment and Plan Future [...] 0 Refill(s) Start Date: 10/10/23 Status: Ordered oxyCODONE 5 mg oral capsule 5 mg = 1 cap, Oral, every 6 hr, PRN as needed for pain, # 10 cap, 0 Refill(s), Pharmacy: [id number], 170.18, cm, 06/04/24 13:52:00 EDT, Height, 61.23, kg, 06/04/24 13:57:00 EDT, Weight Dosing Start Date: 06/04/24 Status: Ordered sertraline 100 mg oral tablet [...] Confirmed Active Chronic insomnia Confirmed Active 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 Cognitive impairment 1 Confirmed [...] of right knee Confirmed Active 1followed by [facility] neuro on meds Procedures Procedure Date Related Diagnosis Body Site Status Arthroscopy Knee (Right) 1 12/11/23 Completed Arthroscopy of knee Compl eted Arthroscopy of shoulder C ompleted Bunionectomy Completed 1auto-populated from documented surgical case Vital Signs Most recent to oldest [Reference Range]: 1 Peripheral Pulse Rate [60-100 bpm] 81 bp m (06/04/24 1:52 PM) Blood Pressure [90-120/60-80 mmHg] 132/7 2mmHg *HI* (06/04/24 1:52 PM) Mean Arterial Pressure, Cuff [65-140 mmH g] 92 mmHg (06/04/24 1:52 PM) Weight 61.23 kg (06/04/24 1:52 PM) Weight Measured (lbs) 134.989 lb (06/04/24 1:52 PM) Weight Dosing 61.230 kg (06/04/24 1:52 PM) Height 170.18 cm (06/04/24 1:52 PM) Height/Length Measured (inches) 67 inch (06/04/24 1:52 PM) BSA Measured 1.7 m2 (06/04/24 1:52 PM) Body Mass Index 21.14 kg/m2 (06/04/24 1:52 PM) Social History Social History Type Response Tobacco Never tobacco user T obacco Use:. Sex Sex Representation Female (finding) Patient Care team information Care Team Personnel Name: BAKARI PATEL Position: No Access Member Role: Primary Care Physician Address: [address] [place] [address] Care Team Related Persons Name: LYNDA GTZ Insurance Providers Guarantor name: JESSICA GTZ Health Plan Information #: 1 Payer: [facility] Member Number: [id number] Policy Number: NA Health Plan Information #: 2 Payer: [facility] Member Number: [id number] Policy Number: NA
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
--- OUTSIDE RECORDS SUMMARY | 2024-07-20 18:24 | XMS_ITS | Encounter Summary ---
Author Organization [facility] Address [facility] [place] [address] Care Team Providers Care Speech And Language Tutor Name Role Phone David Lockhart Primary Care Provider +1- [phone] Encounter Details Date Type Department Care Team (Latest Contact Info) Description 07/06/2024 3:26 PM EST - 07/06/2024 11:59 PM [facility] Encounter XRay at [address] [place] [address] Tarik Henry MD [facility] [place] [address] Pain in left hand; Acute pain of [...] sprays by Nasal route 2 times daily. [place] into each nostril. 30 mL 11 06/09/2024 [...] azelastine (ASTELIN) 137 mcg (0.1 %) Aerosol, [place] as needed. 0 06/17/2017 SUMAtriptan (IMITREX) 100 [...] 3:30 PM EST Office [place] [address] Tarik Henry MD [facility] [place] [address] 09/22/2024 7:00 AM EST Appointment [place] [address] Luis Michael Jr., MD [facility] [place] [address] 09/22/2024 8:00 AM EST [place] [address] Luis Michael Jr., MD [facility] [place] [address] documented as of this encounter Procedures Procedure Name Priority Date/Time Associated Diagnosis Comments XR WRIST 3 VIEWS LEFT Routine 07/06/2024 4:11 PM EST Pain in left hand Acute pain of left wrist documented in this encounter Results * XR Wrist 3 Views Left (07/06/2024 4:11 PM EST) [employer] Signature WORKSTATION ID [id number] RAD Anatomical Region Laterality Modality Left Digital [...] who have questions please contact the health customer care associate that requested your imaging first. ? Electronically signed by: Simin Preston MD, [facility] ([phone]), at 07/07/2024 10:39 AM Narrative 07/07/2024 10:39 [...] patients who have questions please contactthe health customer care associate that requested your imaging first. Electronically signed by: Simin Preston MD, [facility]([phone]), at 07/07/2024 10:39 AM Tarik Henry MD IMG DX ORDERABLES documented in this encounter Visit Diagnoses Diagnosis Pain in left hand Acute pain of left wrist documented in this encounter Care Teams Speech And Language Tutor Relationship Specialty Start Date End Date David Lockhart PA [address] [place] [address] PCP - General Family Medicine 02/11/24 documented as of this encounter
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
--- OUTSIDE RECORDS SUMMARY | 2024-07-20 18:25 | XMS_ITS | Encounter Summary ---
Author Organization [facility] [place] [address] Care Team Providers Care Superintendent Sanitation Name Role Phone David Lockhart Primary Care Provider +1- [phone] Encounter Details Date Type Department Care Team (Latest Contact Info) Description 03/23/2024 Travel Social History Tobacco Use Types Packs/Day [...] 3:30 PM EST Office [place] [address] Tarik Henry MD [facility] DR [place]OPAED[place] [address] 09/22/2024 7:00 AM EST [place] [address] Luis Michael Jr., MD [facility] [place] [address] 09/22/2024 8:00 AM EST [place] [address] Luis Michael Jr., MD [facility] [place] [address] documented as of this encounter Visit Diagnoses Not on filedocumented in this encounter Care Teams Superintendent Sanitation Relationship Specialty Start Date End Date David Lockhart PA [address] [place] [address] PCP - General Family Medicine 02/11/24 documented as of this encounter
--- OUTSIDE RECORDS SUMMARY | 2024-07-20 18:25 | XMS_ITS | Encounter Summary ---
Author Organization [facility] [place] [address] Care Team Providers Care Business Office Director Name Role Phone David Lockhart Primary Care Provider +1- [phone] Encounter Details Date Type Department Care Team (Latest Contact Info) Description 04/30/2024 3:00 PM EDT - 04/30/2024 11:59 PM EDT Hospital Encounter XRay at [address] [place] [address] Tarik Henry MD [facility] ORTHOPAEDIC [place] [address] Primary osteoarthritis of both first carpometacarpal joints Discharge Disposition: Home Social History Tobacco Use [...] Sig Dispensed Refills Start Date End Date estradioL 0.1 mg/24 hr Patch Semiweekly APPLY [...] azelastine (ASTELIN) 137 mcg (0.1 %) Aerosol, [place] as needed. 0 06/17/2017 SUMAtriptan (IMITREX) 100 mg Tablet as needed for Migraine. 1 04/13/2016 hydrocortisone (WEST[place]ORT) 0.2 % Cream Apply topically as needed. 07/25/2015 multivitamin (THERAGRAN) tablet Take 1 tablet by mouth daily. montelukast (SINGULAIR) 10 mg tablet Take 10 mg by mouth daily as needed. 12/07/2010 albuterol (ACCUNEB) 0.63 mg/3 mL nebulizer solution 08/24/2010 ipratropium (Atrovent) 21 mcg (0.03 %) nasal sprayIndications:Vasom otor rhinitis SPRAY TWO SPRAYS INTO EACH NOSTRIL TWICE A DAY 30 mL 03/13/2024 05/11/2024 documented as of this encounter Plan of Treatment Upcoming Encounters Date Type Department Care Team (Late st Contact Info) Description 08/07/2024 3:30 PM EST Office Visit Orthopaedics at [place] [phone] Tarik Henry MD [facility] ORTHOPAEDIC [place] [address] 09/22/2024 7:00 AM EST Appointment [place] [address] Luis Michael Jr., MD [facility] [address] 09/22/2024 8:00 AM EST Office [place] [address] Luis Michael Jr., MD [facility] [place] [address] documented as of this encounter Procedures Procedure Name Priority Date/Time Associated Diagnosis Comments XR HAND MIN 3 VIEWS BILAT Routine 04/30/2024 3:26 PM EDT Primary osteoarthritis of both first carpometacarpal joints documented in this encounter Results * XR Hand Min 3 views Bilat (Generic) (04/30/2024 3:26 PM EDT) Incentive WORKSTATION ID [id number] RAD Anatomical Region Laterality Modality Hand Bilateral Digital Radiogra phy Impressions 05/01/2024 3:28 PM EDT Minimal bilateral hand osteoarthropathy. Thank you for letting us participate in the care of this patient. ??If you are a health care provider and have any questions regarding this report, please contact the number below. ??For patients who have questions please contact the health inpatient care manager rn that requested your imaging first. ? Electronically signed by: Swapna Cedeño MD, [facility] ([phone]), at 05/01/2024 3:28 PM Narrative 05/01/2024 3:28 PM EDT EXAMINATION: XR [...] patients who have questions please contactthe health inpatient care manager rn that requested your imaging first. Electronically signed by: Swapna Cedeño MD, [facility]([phone]), at 05/01/2024 3:28 PM Tarik Henry MD IMG DX ORDERABLES documented in this encounter Visit Diagnoses Diagnosis Primary osteoarthritis of both first carpometacarpal joints Primary localized osteoarthrosis, hand documented in this encounter Care Teams Business Office Director Relationship Specialty Start Date End Date David Lockhart PA [address] [place] [address] PCP - General Family Medicine 02/11/24 documented as of this encounter
--- OUTSIDE RECORDS SUMMARY | 2024-07-20 18:25 | XMS_ITS | Encounter Summary ---
Author Organization [facility] [place] [address] Care Team Providers Care Vaccines Solutions Specialist Name Role Phone David Lockhart Primary Care Provider +1- [phone] Encounter Details Date Type Department Care Team (Late st Contact Info) Description 04/06/2024 3:00 PM EDT Procedure [place] [address] Kenya [place] MD [facility] [place] [place] [address] Numbness and tingling Social History Tobacco Use Types Packs/Day Years Used Date Smoking Tobacco: Never Passive Smoke Exposure: Never Smokeless Tobacco: Never Alcohol Use Standard Drinks/Week Comments No 0 (1 standard drink = 0.6 oz pur e alcohol) [facility] Inpatient Questions Answer Date Recorded Does Anyone [...] as of this encounter Progress Notes * Kenya Albright MD - 04/06/2024 3:00 PM EDT See fellow note documented in this encounter Plan of Treatment Upcoming Encounters Date Type Department Care Team (Late st Contact Info) Description 08/07/2024 3:30 PM EST Office Visit Orthopaedics at [place] [phone] Tarik Henry MD [facility] [place] [address] 09/22/2024 7:00 AM EST [place] [address] Luis Michael Jr., MD [facility] [address] 09/22/2024 8:00 AM EST [place] [address] Luis Michael Jr., MD [facility] [place] [address] documented as of this encounter Visit Diagnoses Diagnosis Numbness and tingling Disturbance of skin sensation documented in this encounter Care Teams Vaccines Solutions Specialist Relationship Specialty Start Date End Date David Lockhart PA [address] [place] [address] PCP - General Family Medicine 02/11/24 documented as of this encounter
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
--- OUTSIDE RECORDS SUMMARY | 2024-07-20 18:25 | XMS_ITS | Encounter Summary ---
Author Organization [facility] [place] [address] Care Team Providers Care Process Worker Name Role Phone David Lockhart Primary Care Provider [phone]- [phone] Reason for Visit * Reason Comments Follow-up Bilateral thumb inje ctions Encounter Details Date Type Department Care Team (Latest Contact Info) Description 04/30/2024 2:30 PM EDT Office [place] [address] Tarik Henry MD [facility] [place] [address] Primary osteoarthritis of both first carpometacarpal joints (Primary Dx) Social History Tobacco Use Types Packs/Day Years [...] Sign Reading Time Taken Comments Blood Pressure - - Pulse - - Temperature - - Respiratory Rate - - Oxygen Saturation - - Inhaled Oxygen Concentration - - Weight 61.2 kg (135 lb) 04/30/2024 2:12 PM EDT Height 170.2 cm (5' 7) 04/30/2024 2:12 PM EDT Body Mass Index 21.14 04/30/2024 2:12 PM EDT documented in this encounter Progress Notes * Tarik Henry MD - 04/30/2024 2:30 PM EDT [facility] FOLLOW UP NOTE ID/Chief Complaint: Chief Complaint Patient presents with Follow-up Bilateral thumb injections Interval History: patient presents today with ongoing bilateral wrist, thumb pain which began over year ago with lifting too many heavy things. The patient notes that her pain only improvement she is able to stop doing so much activity, with rest and ice. The patient notes her pain today is rated 4/10, and her pain flares up whenever she has to do anything that irritates her wrist symptoms. She has gotten prior injections in her thumbs for osteoarthritis of the first CMC joint. The patient notes she is limiting her ability to exercise, play sports, lift, work, occasionally when she sleeps she has pain as well. The patient is tried medications, PT, chiropractor, injections, braces. You tried prior injections to her TFC C bilaterally, which she notes improved her pain overall however she now notices some other pain shooting up her forearm which she did not notice previously as she was more focused on her wrist. Relevant labs- BMI Readings from Last 2 Encounters: 04/30/24 21.14 kg/m?? 04/06/24 21.14 kg/m?? No results found for: HA1C No results found for: INR, PT Lab Results Component Value Date NA 141 02/11/2024 K 3.9 02/11/2024 CL 103 02/11/2024 CO2 28 02/11/2024 BUN 15 02/11/2024 CREATININE 0.88 02/11/2024 GLUCOSE 55 (L) 02/11/2024 CALCIUM 9.7 02/11/2024 ESTGFR 75 02/11/2024 BP Readings from Last 3 Encounters: 04/06/24 112/69 03/25/24 104/67 03/09/24 117/73 Lab Results Component Value Date WBC 5.7 [...] new allergies to medications Physical Examination: Vitals: Ht 170.2 cm (5' 7) Wt 61.2 kg (135 lb) BMI 21.14 kg/m?? - Gen: Alert and following commands, no acute distress - CV: pulses 2+ and equal - Skin: Intact skin, non-erythematous, no rashes or breakdown appreciated Musculoskeletal: At the BL wrist Inspection: No deformity No swelling around the wrist Alignment: no radial or ulnar deviation ROM: Full in all planes including flexion, extension Strength: (R/L) Extension: 5/5 Flexion: 5/5 Palpation: Ganglion: None appreciated Base of the thumb: ttp BL Special tests: 1st CMC joint OA CMC grind: pos BL Imaging: No new imaging. Diagnostic Ultrasound Pre-scan of the joint does not reveal effusion PROCEDURE Ultrasound guided injection. Procedure injection location: 1st CMC joint Side: Bilateral Indication: Pain and limited function Equipment: 24tidy with 4-20 MHz linear transducer, 4-12 MHz [...] of any special equipment orother special requirements. Justification for use of ultrasound guidance: The [...] specificity when evaluating effectiveness of this injection. Right The injection location was confirmed by a prescan of the area. Following this, the area was cleanedin the usual sterile fashion with chlorhexidine. Subsequently a 27g 1.25in needle was advanced to the target under direct ultrasound visualization using an [id number]-[id number] approach. Aspiration revealed no blood. The injection was performed with solution volumes as below. Lidocaine 1% 0.5 ml Triamcinolone 40 mg/ml 0.5 ml The needle was removed. Hemostasis was achieved with direct pressure. There were no complications and the patient tolerated the procedure well. Post procedure instructions were provided. Left The injection location was confirmed by a prescan of the area. Following this, the area was cleanedin the usual sterile fashion with chlorhexidine. Subsequently a 27g 1.25in needle was advanced to the target under direct ultrasound visualization using an [id number] approach. Aspiration revealed no blood. The injection was performed with solution volumes as below. Lidocaine 1% 0.5 ml Triamcinolone 40 mg/ml 0.5 ml The needle was removed. Hemostasis was achieved with direct pressure. There were no complications and the patient tolerated the procedure well. Post procedure instructions were provided. ASSESSMENT & PLAN Impression: patient presents today with bilateral base of the thumb pain due to for CMC osteoarthritis bilaterally. At this point the patient is not gotten significant relief with PT and rest, therefore will provide her with injections into these joints today. She is gotten injections from other providers in the past, and hopefully she will get significant relief from these. The patient still has a nerve type pain around her wrist and hand, which we stated she may or may not get some relief from with the injections. For her TSC see, she did have some good relief with prior injections we gave her for that. We encourage the patient can to continue activity, and will follow-up as needed Plan: - Therapeutic exercise: Continue PT exercises - Medications: No changes were made today.. Counseled regarding side effects and appropriate administration of medications as applicable. - Diagnostics: none - Injections: Discussed the risks of a potential joint injection, including bleeding, infection, transient blood sugar elevation, the possibility of wearing out cartilage over time. Ultrasound guided injection provided today to the [address] jts - Medical Decision Making: Discussed surgical and [...] in the interim. Tarik Henry MD [employer] Senior ManagerPaint Grinder [employer] [facility] The note was created using dictation, please excuse any grammatical or word errors. documented in this encounter Plan of Treatment Upcoming Encounters Date Type Department Care Team (Late st Contact Info) Description 08/07/2024 3:30 PM EST Office [place] [address] Tarik Henry MD [facility] [place] [address] 09/22/2024 7:00 AM [place] [address] Luis Michael Jr., MD [facility] [place] [address] 09/22/2024 8:00 AM EST [place] [phone] Luis Michael Jr., MD [facility] [place] [address] documented as of this encounter Results * XR Hand Min 3 views Bilat (Generic) (04/30/2024 3:26 PM EDT) WORKSTATION ID [id number] RAD Anatomical Region Laterality Modality Hand Bilateral Digital Radiogra phy Impressions 05/01/2024 3:28 PM EDT Minimal bilateral hand osteoarthropathy. Thank you for letting us participate in the care of this patient. ??If you are a health care provider and have any questions regarding this report, please contact the number below. ??For patients who have questions please contact the health daycare teacher that requested your imaging first. ? Electronically signed by: Swapna Cedeño MD, [facility] ([phone]), at 05/01/2024 3:28 PM Narrative 05/01/2024 3:28 [...] patients who have questions please contactthe health daycare teacher that requested your imaging first. Electronically signed by: Swapna Cedeño MD, [facility]([phone]), at 05/01/2024 3:28 PM Tarik Henry MD IMG DX ORDERABLES documented in this encounter Visit Diagnoses Diagnosis Primary osteoarthritis of both first carpometacarpal joints- Primary Primary localized osteoarthrosis, hand Primary osteoarthritis of both first carpometacarpal joints Primary localized osteoarthrosis, hand documented in this encounter Administered Medications Inactive Administered Medications - up to 3 most recent administrations Medication Order MAR Action Action Date Dose Rate Site lidocaine (Xylocaine) 1% (10 mg/mL) injection 5 mg 5 mg, Intra-articular, ONCE, 1 dose, On Shanta 04/30/24 at 1515, Routine Given 04/30/2024 2:54 PM EDT 5 mg lidocaine (Xylocaine) 1% (10 mg/mL) injection 5 mg 5 mg, Intra-articular, ONCE, 1 dose, On Shanta 04/30/24 at 1515, Routine Given 04/30/2024 2:54 PM EDT 5 mg triamcinolone acetonide (Kenalog-40) (40 mg/mL) injection 20 mg 20 mg, Intra-articular, ONCE, 1 dose, On Shanta 04/30/24 at 1515, Routine Given 04/30/2024 2:54 PM EDT 20 mg triamcinolone acetonide (Kenalog-40) (40 mg/mL) injection 20 mg 20 mg, Intra-articular, ONCE, 1 dose, On Shanta 04/30/24 at 1515, Routine Given 04/30/2024 2:54 PM EDT 20 mg documented in this encounter Care Teams Process Worker Relationship Specialty Start Date End Date David Lockhart PA [address] [place] [address] PCP - General Family Medicine 02/11/24 documented as of this encounter
--- OUTSIDE RECORDS SUMMARY | 2024-07-20 18:25 | XMS_ITS | Encounter Summary ---
Author Organization [facility] [place] [address] Care Team Providers Care Clinical Administrative Coordinator Name Role Phone David Lockhart Primary Care Provider [phone]- [phone] Encounter Details Date Type Department Care Team (Latest Contact Info) Description 02/11/2024 Travel Social History Tobacco Use Types Packs/Day [...] 3:30 PM EST [place] [address] Tarik Henry MD [facility] [place] [address] 09/22/2024 7:00 AM [place] [address] Luis Michael Jr., MD [facility] [place] [address] 09/22/2024 8:00 AM [place] [address] Luis Michael Jr., MD [facility] [place] [address] documented as of this encounter Visit Diagnoses Not on filedocumented in this encounter Care Teams Clinical Administrative Coordinator Relationship Specialty Start Date End Date David Lockhart PA [address] [place] [address] PCP - General Family Medicine 02/11/24 documented as of this encounter
--- OUTSIDE RECORDS SUMMARY | 2024-07-20 18:25 | XMS_ITS | Encounter Summary ---
Author Organization [facility] [place] [address] Care Team Providers Care Grappler Name Role Phone David Lockhart Primary Care Provider +1- [phone] Encounter Details Date Type Department Care Team (Latest Contact Info) Description 02/11/2024 10:00 AM EDT Laboratory Appointment Lab [address] [place] [address] Nephrolithiasis Social History Tobacco Use Types Packs/Day Years Used Date Smoking Tobacco: Never Passive Smoke Exposure: Never Smokeless Tobacco: Never Alcohol Use Standard Drinks/Week Comments No 0 (1 standard drink = 0.6 oz pur e alcohol) [facility] Inpatient Questions Answer Date Recorded Does [...] 3:30 PM EST Office [place] [address] Tarki Henry MD [facility] [place] [address] 09/22/2024 7:00 AM EST [place] [address] Luis Michael Jr., MD [facility] [place] [place] [address] 09/22/2024 8:00 AM EST [place] [address] Luis Michael Jr., MD [facility] UROLOGY [place], [place] [id number] documented as of this encounter Procedures Procedure Name Priority Date/Time Associated Diagnosis Comments BASIC METABOLIC PANEL STAT 02/11/2024 10:20 AM EDT Nephrolithiasis documented in this encounter Results * (ABNORMAL) Basic Metabolic Panel (non-fasting) (02/11/2024 10:20 AM EDT) Glucose 55(L) 65 - 199 mg/dL [facility] Comment:Diabetes: >=200 mg/d L plus symptoms Blood Urea Nitrogen 15 8 - 18 mg/dL [facility] Creatinine 0.88 0.70 - 1.20 mg/dL [facility] Sodium 141 135 - 145 mmol/L [facility] Potassium 3.9 3.5 - 5.0 mmol/L [facility] Comment: Please note: ??Patients with WBC >100,000 may have falsely elevated Potassium levels. ??For accurate Potassium quantification in these patients send serum separator tube (gold top) for subsequent determinations. ??Contact the Clinical Chemistry Laboratory if there are any questions. Chloride 103 98 - 107 mmol/L [facility] Carbon Dioxide 28 22 - 31 mmol/L [facility] Anion Gap 10 5 - 15 mmol/L [facility] Calcium 9.7 8.5 - 10.5 mg/dL [facility] Est Glomerular Filtration Rate 75 >=60 mL/min/1. 73 m?? [facility] Comment: This patient's estimated GFR was calculated using the 2020 CKD-EPI equation. The estimated GFR can vary from the measured GFR by up to 30% in the absence of rapidly changing kidney function. Assessment of the estimated GFR is not appropriate when creatinine concentrations are rapidly changing. For clinical situations in which a more precise estimate of GFR is necessary, consider alternative methods of GFR estimation such as a 24-hour urine creatinine clearance. Assignment of CKD stage 1-5 for patients with an eGFR near the transition point between stages may be based on clinical assessment of muscle mass and symptoms in addition to eGFR. Blood 02/11/2024 10:2 0 AM EDT 02/11/2024 10:25 AM EDT Narrative Resulting Agency Comment Spec In Lab Luis Michael Jr., MD CHEMISTRY ORDERABL ES [facility] [place] [address] documented in this encounter Visit Diagnoses Diagnosis Nephrolithiasis Calculus of kidney documented in this encounter Care Teams Grappler Relationship Specialty Start Date End Date David Lockhart PA [address] [place] [address] PCP - General Family Medicine 02/11/24 documented as of this encounter
--- OUTSIDE RECORDS SUMMARY | 2024-07-20 18:25 | XMS_ITS | Encounter Summary ---
Author Organization [facility] [place] [address] Care Team Providers Care Field Crop Farming Supervisor Name Role Phone David Lockhart Primary Care Provider +1- [phone] Reason for Visit * Reason Comments Medication Refill Encounter Details Date Type Department Care Team (Late st Contact Info) Description 03/12/2024 Refill [place] [address] Tong Norman MD [facility] [place] [address] Vasomotor rhinitis Social History Tobacco Use Types Packs/Day Years Used Date Smoking Tobacco: Never Passive Smoke Exposure: Never Smokeless Tobacco: Never Alcohol Use Standard Drinks/Week Comments No 0 (1 standard drink = 0.6 oz pur e alcohol) [facility] Inpatient Questions Answer Date [...] encounter Miscellaneous Notes * Telephone Encounter - Rossana Lucero RN - 03/13/2024 8:23 AM EDT Per pharmacy request, ANTONI: 03/27/2023 Tong Norman MD, FUV: Visit date not found. documented in this encounter Plan of Treatment Upcoming Encounters Date Type Department Care Team (Late st Contact Info) Description 08/07/2024 3:30 PM EST Office Visit Orthopaedics at [place] [phone] Tarik Henry MD [facility] [place] [address] 09/22/2024 7:00 AM EST Appointment Ultrasound at [place] [phone] Luis Michael Jr., MD [facility] [place] [address] 09/22/2024 8:00 AM EST Office Visit Urology at [place] [phone] Luis Michael Jr., MD [facility] [place] [address] documented as of this encounter Visit Diagnoses Diagnosis Vasomotor rhinitis Allergic rhinitis, cause unspecified documented in this encounter Care Teams Field Crop Farming Supervisor Relationship Specialty Start Date End Date David Lockhart PA [address] [place] [address] PCP - General Family Medicine 02/11/24 documented as of this encounter
--- OUTSIDE RECORDS SUMMARY | 2024-07-20 18:25 | XMS_ITS | Encounter Summary ---
Author Organization [facility] [place] [address] Care Team Providers Care Imaging Scheduler Name Role Phone David Lockhart Primary Care Provider +1- [phone] Encounter Details Date Type Department Care Team (Latest Contact Info) Description 06/16/2024 Travel Social History Tobacco Use Types Packs/Day [...] 3:30 PM EST Office [place] [address] Tarik Henry MD [facility] [place] [address] 09/22/2024 7:00 AM EST Appointment [place] [address] Luis Michael Jr., MD [facility] [place] [address] 09/22/2024 8:00 AM EST Office [place] [address] Luis Michael Jr., MD [facility] [place] [address] documented as of this encounter Visit Diagnoses Not on filedocumented in this encounter Care Teams Imaging Scheduler Relationship Specialty Start Date End Date David Lockhart PA [address] [place] [address] PCP - General Family Medicine 02/11/24 documented as of this encounter
--- OUTSIDE RECORDS SUMMARY | 2024-07-20 18:25 | XMS_ITS | Encounter Summary ---
Author Organization [facility] [place] [address] Care Team Providers Care Copier And Printer Field Technician Name Role Phone David Lockhart Primary Care Provider +1- [phone] Reason for Referral * Consultation (Routine) - Closed Specialty Diagnoses / Procedures Referred By Alberta mendosa Referred To Contact Orthopaedics Diagnoses Right wrist tendonitis Vito Muñoz MD [facility] [place] [address] Tarik Henry MD [facility] [place] [address] Referral ID Status Reason Start Date Expiration Date V isits Requested Visits Authorized [id number] Closed Consult, Test & Treat 03/09/2024 03/09/2025 1 1 Encounter Details Date Type Department Care Team (Late st Contact Info) Description 03/09/2024 Orders Only [place] [address] Vito Muñoz MD [facility] [place] [address] Right wrist tendonitis Social History Tobacco Use Types Packs/Day Years [...] 3:30 PM EST Office Visit [place] [address] Tarik Henry MD [facility] [place] [address] 09/22/2024 7:00 AM EST Appointment Ultrasound at [place] [phone] Luis Michael Jr., MD [facility] [place] [address] 09/22/2024 8:00 AM EST Office Visit Urology at [place] [phone] Luis Michael Jr., MD [facility] [place] [address] Scheduled Referrals Name Type Priority Associated Diagnoses Order Schedule Referral to Orthopaedics Outpatient Referral Routine Right wrist tendonitis Ordered: 03/09/2024 documented as of this encounter Visit Diagnoses Diagnosis Right wrist tendonitis documented in this encounter Care Teams Copier And Printer Field Technician Relationship Specialty Start Date End Date David Lockhart PA [address] [place] [address] PCP - General Family Medicine 02/11/24 documented as of this encounter
--- OUTSIDE RECORDS SUMMARY | 2024-07-20 18:25 | XMS_ITS | Encounter Summary ---
Author Organization [facility] Victor [place] [address] Care Team Providers Care Repair Order Clerk Name Role Phone David Lockhart Primary Care Provider +1- [phone] Encounter Details Date Type Department Care Team (Latest Contact Info) Description 03/24/2024 Travel Social History Tobacco Use Types Packs/Day [...] 3:30 PM EST Office [place] [address] Tarik Henry MD [facility] [place] [address] 09/22/2024 7:00 AM EST [place] [address] Luis Michael Jr., MD [facility] [place] [address] 09/22/2024 8:00 AM EST [place] [address] Luis Michael Jr., MD [facility] [place] [address] documented as of this encounter Visit Diagnoses Not on filedocumented in this encounter Care Teams Repair Order Clerk Relationship Specialty Start Date End Date David Lockhart PA [address] [place] [address] PCP - General Family Medicine 02/11/24 documented as of this encounter
--- OUTSIDE RECORDS SUMMARY | 2024-07-20 18:25 | XMS_ITS | Encounter Summary ---
Author Organization [facility] [place] [address] Care Team Providers Care Clinic Licensed Practical Nurse Name Role Phone David Lockhart Primary Care Provider +1- [phone] Encounter Details Date Type Department Care Team (Late st Contact Info) Description 02/18/2024 4:20 PM EDT Office Visit Obstetrics [place] [address] Rosita Riddle MD [facility] [place] [address] Post-menopause on HRT (hormone replacement therapy) (Primary Dx); PMB (postmenopausal bleeding) Social History Tobacco Use Types Packs/Day Years Used Date Smoking Tobacco: Never Passive Smoke Exposure: Never Smokeless Tobacco: Never Alcohol Use Standard Drinks/Week Comments No 0 (1 standard drink = 0.6 oz pur e alcohol) [facility] Inpatient Questions Answer Date Recorded Does Anyone [...] Sign Reading Time Taken Comments Blood Pressure 133/62 02/18/2024 3:56 PM EDT Pulse 73 02/18/2024 3:56 PM EDT Temperature 36.5 ??C (97.7 ??F) 02/18/2024 3:56 PM ED T Respiratory Rate - - Oxygen Saturation 100% 02/18/2024 3:56 PM EDT Inhaled Oxygen Concentration - - Weight 65.7 kg (144 lb 14.4 oz) 02/18/2024 3:56 PM EDT Height - - Body Mass Index 22.03 01/09/2024 2:53 PM EDT documented in this encounter Progress Notes * Rosita Riddle MD - 02/18/2024 4:20 PM EDT Return TIMBER HAND Problem visit. Subjective: Stacy Albright ( ) is a 58 y.o. who presents today for EMB and IUD replacement. Stacy had US today and endometrial stripe suboptimally visualized due to IUD, though where visualized measure 2.6mm (see report below). However, given PMB on HRT and planning IUD replacement, do recommend EMB as precaution. Patient Active Problem List Diagnosis Date Noted Post-COVID syndrome 05/29/2022 Right wrist tendonitis 01/09/2024 Primary osteoarthritis of [...] possible ulcer History of nephrolithiasis Memory difficulties 2018 Migraines Osteoporosis Raynaud's disease Shoulder pain R frozen shoulder and rotator cuff repair Past Surgical History: Procedure Laterality Date CREATED BY INTERFACE EJosephSJosephWGuido(MSUROL) Procedure Date: 01/16/2008 KNEE SURGERY 03/01/14 Right knee; patella surgery LITHOTRIPSY PRO CYSTO/URETERO/PYELOSCOPY, CALCULUS TX Left 03/15/2023 CYSTOURETHROSCOPY WITH UTETEROSCOPY, W\REMOVAL, MANIPULATION OF CALCULUS (WRVU 6.75) performed by Luis Michael Jr., MD at [facility] OSC PRO CYSTOSCOPY, INSERT URETERAL STENT Left 03/15/2023 CYSTO, STENT PLACEMENT (WRVU 2.82) performed by Luis Michael Jr., MD at [facility] OSC PRO CYSTOSCOPY, TX URETERAL STRICTURE Left 03/15/2023 CYSTOURETHROSCOPY, BALLOON DILATION OF URETERAL STRICTURE (WRVU 5.35) performed by Luis Michael Jr., MD at [facility] OSC PRO CYSTOURETHROSCOPY, FULGUR <.5CM LESN N/A 04/18/2017 CYSTO, FULGURATION\BLADDER LESION\W\WO BX\LESS THAN 0.5CM (WRVU 4.05) performed by Luis Michael Jr., MD at [facility] MAIN OR SHOULDER SURGERY Right 07/2019 XR FLUORO INJECTION DRAINAGE JOINT SM LEFT Left 09/12/2023 XR Fluoro Guided Joint Injection Small Left 09/12/2023 Aylin Ron PA [facility] RAD XRAY XR FLUORO INJECTION DRAINAGE JOINT SM LEFT Left 01/24/2024 XR Fluoro Guided Joint Injection Small Left 01/24/2024 Aylin Ron PA [facility] RAD XRAY XR FLUORO INJECTION DRAINAGE JOINT SM RIGHT Right 09/12/2023 XR Fluoro Guided Joint Injection Small Right 09/12/2023 Aylin Ron PA [facility] RAD XRAY XR FLUORO INJECTION DRAINAGE JOINT SM RIGHT Right 01/24/2024 XR Fluoro Guided Joint Injection Small Right 01/24/2024 Aylin Ron PA [facility] RAD XRAY No outpatient medications have been marked as taking for the 02/18/24 encounter (Office Visit) with Rosita Riddle MD. Allergies Allergen Reactions Animal Dander Escitalopram Other (See Comments) Grass Pollen-[place], Standard Other (See Comments) Runny nose, itching, sneezing Mold Extracts Other (See Comments) Sneezing and runny nose Objective: BP 133/62 (BP Location (NBP): Right arm, Patient Position: Sitting, BP Cuff Sizes: Adult (25-34 cm)) Pulse 73 Temp 36.5 ??C (97.7 ??F) (Temporal) Wt 65.7 kg (144 lb 14.4 oz) SpO2 100% BMI 22.03 kg/m?? General: Appears healthy and well nourished. No apparent distress. US INDICATIONS: PMB, on HRT. IUD in place. TECHNIQUE/SCAN QUALITY: Technique: Transducer ID#:[id number] COMPARISON: US transvaginal 01/25/22 -------- HISTORY: -------- Age: 58 ------- UTERUS: ------- Uterus: Visualized Position: Anteverted Size (cm) L: 7.9 W: 4.1 H: 3.8 Description: Heterogeneous with fan beam shadowing, myometrial cysts, and somewhat globular uterine configuration suggestive of adenomyosis. ENDOMETRIUM: Endometrium: Normal where seen Thickness(mm): 2.64 Comment: 3D rendering with interpretation was performed for IUD placement. IUD seen in normal position within the endometrial cavity. ------- CERVIX: ------- Nabothian cysts seen CUL-DE-SAC: A trace amount of free fluid is noted and in the right adnexa. RIGHT OVARY: Status: Visualize Size (cm) L: 2.5 W: 1.5 H: 0.9 Vol (ml): 1.8 Type: Simple cyst Size (cm) L: 0.6 W: 0.7 H: 0.6 Vol (ml): 0.1 LEFT OVARY: Status: Visualized Size (cm) L: 1.9 W: 1.2 H: 1.5 Vol (ml): 1.8 Type: Simple cyst Size (cm) L: 1.0 W: 1.0 H: 0.6 Vol (ml): 0.3 --------- COMMENTS: --------- Right adnexal simple cystic structure measuring 8 x 7 x 8 mm. IMPRESSION 1. IUD is in appropriate position within the endometrial cavity. Limited evaluation of the endometrium due to the presence of the IUD, appears normal where seen with an estimated bilayer thickness of2.6 mm. 2. Sonographic appearance of the uterus as described suggestive of adenomyosis. 3. Stable subcentimeter simple right ovarian cyst. 4. Interval simple 1 cm left ovarian cyst. 5. 8 mm simple right adnexal cyst, not seen on prior 2021 ultrasound. EMB and IUD replacement Procedure: Stacy is aware of the risks of the procedure and prior to procedure, she reviewed and signed the consent form. Prior to the start of this procedure, I confirmed the patient's identity, intended procedure and availability of equipment needed. Pelvic: Uterus anteverted, normal size and contour. Speculum placed, cervix and upper vagina cleansed with betadine. Tenaculum applied, paracervical block performed. IUD removed with gentle traction using a ring forcep. The IUD was intact. Pt tolerated the removal well. EMB then collected with pipelle. Using sterile technique, the uterus was sounded and a Liletta IUD was inserted and deployed at the fundus without difficulty (though patient did move during placement). The strings were trimmed to approx 3 cm. Pt tolerated the procedure well. Assessment/Plan: Stacy is a 58yo who presents today for IUD replacement and EMB. IUD Removal IUD removed with no complications. IUD Placement Successfully inserted a liletta IUD. Discussed Mirena IUD is FDA approved for prevention for 8yrs. FDA approved for heavy menstrual bleeding for 5yrs. Recommend replacement q5y if using for endometrial protection while on HRT. Ibuprofen 800mg Q8 hrs PRN may be used for discomfort. Nothing in vagina x2 days. Reviewed warning s/sx and encouraged Joanneto call with any other concerns. EMB - uncomplicated, will follow up pathology Reviewed recommendation for starting to taper down MHT. Declines today. She will reach out when sheis ready to do so, likely in the late summer. documented in this encounter Plan of Treatment Upcoming Encounters Date Type Department Care Team (Late st Contact Info) Description 08/07/2024 3:30 PM EST Office Visit Orthopaedics at [place] [phone] Tarik Henry MD [facility] [place] [address] 09/22/2024 7:00 AM EST Appointment Ultrasound at [place] [phone] Luis Michael Jr., MD [facility] [place] [address] 09/22/2024 8:00 AM EST Office Visit Urology at [place] [phone] Luis Michael Jr., MD [facility] [address] documented as of this encounter Procedures Procedure Name Priority Date/Time Associated Diagnosis Comments SURGICAL PATHOLOGY REPORT Routine 02/18/2024 4:38 PM EDT SPECIMEN TO PATHOLOGY Routine 02/18/2024 4:38 PM EDT PMB (postmenopausal bleeding) documented in this encounter Results * Surgical Pathology Report (02/18/2024 4:38 PM EDT) Final Diagnosis [id number] ? Location: 5L The signing pathologist has (i) examined the relevant preparation(s) for the specimen(s) and (ii) rendered or confirmed the diagnosis(es). . ?Surgical Pathology DIAGNOSIS A - Endometrium (biopsy): ??- Inactive decidualized endometrium consistent with exogenous hormone ?therapy effect. ??- Stromal plasma cells (chronic endometritis). Electronically signed by: ?Nikita GILL, Romy Mcintosh Verified: ??02/20/2024 10:26 ??Pathologist Performed at: ??-[facility] Dept. of Pathology, [place] [address] Restoration Ecologist: Jocelyn Otero MD, FCAP, ??CLIA Certificate: [id number] SPECIMEN(S) SUBMITTED A - Endometrial, biopsy (1) CLINICAL INFORMATION Postmenopausal bleeding, on HRT, IUD in place SPECIMEN PROCESSING A - Labeled/Fixative : Patient demographics, formalin. Quantity/Size: ??Fragments, 2.0 x 0.8 x 0.3 cm. Tissue Description: Soft, pink-red tissues. Sections/Process ing: Submitted in toto in 1 cassette labeled A1. ??sns 02/20/2024 10:26 AM EDT [facility] ENDOMETRIAL STRUCTURE / Unknown 02/18/2024 4:38 PM EDT 02/18/2024 4:38 PM EDT Rosita Riddle MD PATHOLOGY/CYTOLO GY ORDERABLES [facility] [place] [address] * Specimen to Pathology (02/18/2024 4:38 PM EDT) AP Specimen 02/18/2024 4:38 PM EDT 02/18/2024 4:38 PM EDT Narrative [facility] - 02/18/2024 4:38 PM EDT Specimen requisition ordered. ??Separate Pathology report to follow Rosita Riddle MD PATHOLOGY/CYTOLO GY ORDERABLES [facility] [place] [place] [address] documented in this encounter Visit Diagnoses Diagnosis Post-menopause on HRT (hormone replacement therapy)- Primary Need for prophylactic hormone replacement therapy (postmenopausal) PMB (postmenopausal bleeding) Postmenopausal bleeding documented in this encounter Administered Medications Inactive Administered Medications - up to 3 most recent administrations Medication Order MAR Action Action Date Dose Rate Site levonorgestreL (Liletta) 20.4 mcg/24 hr intra-uterine device (8 year) 1 Intra Uterine Device, Intrauterine, ONCE, 1 dose, On 02/18/24 at 1700, Routine Inserted 02/18/2024 4:36 PM EDT 1 Intra Uterine Device documented in this encounter Care Teams Clinic Licensed Practical Nurse Relationship Specialty Start Date End Date David Lockhart PA [address] [place] [address] PCP - General Family Medicine 02/11/24 documented as of this encounter
--- OUTSIDE RECORDS SUMMARY | 2024-07-20 18:25 | XMS_ITS | Encounter Summary ---
Author Organization [facility] [place] [address] Care Team Providers Care Machine Adjuster Helper Name Role Phone David Lockhart Primary Care Provider +1- [phone] Encounter Details Date Type Department Care Team (Late st Contact Info) Description 04/06/2024 Orders [place] [id number] Aylin Ron PA [facility] [place] [address] Social History Tobacco Use Types Packs/Day Years Used Date Smoking Tobacco: Never Passive Smoke Exposure: Never Smokeless Tobacco: Never Alcohol Use Standard Drinks/Week Comments No 0 (1 standard drink = 0.6 oz pur e alcohol) [facility] Inpatient Questions Answer Date Recorded Does Anyone [...] 3:30 PM EST Office Visit Orthopaedics at [place] [phone] Tarik Henry MD [facility] DR [place] [address] 09/22/2024 7:00 AM EST [place] [address] Luis Michael Jr., MD [facility] [place] [address] 09/22/2024 8:00 AM EST [place] [address] Luis Michael Jr., MD [facility] [place] [address] documented as of this encounter Visit Diagnoses Not on filedocumented in this encounter Care Teams Machine Adjuster Helper Relationship Specialty Start Date End Date David Lockhart PA [address] [place] [address] PCP - General Family Medicine 02/11/24 documented as of this encounter
--- OUTSIDE RECORDS SUMMARY | 2024-07-20 18:25 | XMS_ITS | Encounter Summary ---
Author [place] [address] Care Team Providers Care Transfer Clerk Name Role Phone David Lockhart Primary Care Provider +1- [phone] Reason for Referral * Consultation (Routine) - Closed Specialty Diagnoses / Procedures Referred By Alberta mendosa Referred To Contact Neurology Diagnoses Bilateral wrist pain Milvia Yang PA [facility] [place] [address] [facility] Neurology [address] [place] [address] Referral ID Status Reason Start Date Expiration Date V isits Requested Visits Authorized [id number] Closed Consult, Test & Treat 02/19/2024 02/18/2025 1 1 Reason for Visit * Reason Comments Follow-up NXR RIGHT WRIST M RI RESULTS PER MILVIA Encounter Details Date Type Department Care Team (Late st Contact Info) Description 02/19/2024 9:15 AM EDT [place] [address] Vito Muñoz MD [facility] [place] [address] Bilateral wrist pain Social History Tobacco Use Types Packs/Day Years [...] - Inhaled Oxygen Concentration - - Weight 65.3 kg (144 lb) 02/19/2024 9:01 AM EDT Height 172.7 cm (5' 7.99) 02/19/2024 9:01 AM ED T Body Mass Index 21.9 02/19/2024 9:01 AM EDT documented in this encounter Progress Notes * Milvia Yang PA - 02/19/2024 9:15 AM EDT Images from the original note were not included. PATIENT NAME: Stacy Albright AGE: 58 y.o. MR#: [id number] DATE OF VISIT: 02/19/2024 DATE OF INJURY/ONSET: several years CHIEF COMPLAINT: Bilateral wrist pain HISTORY OF PRESENT ILLNESS: Ms. Albright is a right hand dominant 58 y.o. female who comes into clinic today for evaluation of the bilateral wrists. The patient has a history significant for asthma, osteoporosis, COPD, depression. The patient initially presented in August with left worse than right wrist pain at the base of the thumbs as well as over the volar wrists. She was diagnosed with basal joint arthritis for which she wears splints as well as tried fluoroscopy guided cortisone injectionswith satisfactory relief. Additionally, she has been diagnosed with flexor tendinitis which has been treated with hand therapy including iontophoresis. She reports persistent pain at the base of thumb, volar wrist and ulnar wrist. Worse with recent cane use. She reports trying hand therapy including iontophoresis without relief. She continues to wear bilateral base of thumb splints. Interval HPI: She reports transient improvement in her bilateral wrist pain after knee surgery although the pain has returned since resuming activity. She reports that the pain continues to be over the volar aspects of the wrists as well as at the ulnar aspects of the wrists. She reports neck pain with associated neck pain for which she sees a chiropractor. She reports diffuse hand tingling. Medications and Allergies were reviewed in eD-H PAST MEDICAL HX: Past Medical History: Diagnosis Date Abnormal glandular Papanicolaou smear of cervix age 15 Asthma COVID-19 11/2021 Gastric acidity possible ulcer History of nephrolithiasis Memory difficulties 2018 Migraines Osteoporosis Raynaud's disease Shoulder pain R frozen shoulder and rotator cuff repair PAST SURGICAL HX: Past Surgical History: Procedure Laterality Date CREATED BY ENOCH Morgan(MSUROL) Procedure Date: 01/16/2008 KNEE SURGERY 03/01/14 Right knee; patella surgery LITHOTRIPSY PRO CYSTO/URETERO/PYELOSCOPY, CALCULUS TX Left 03/15/2023 CYSTOURETHROSCOPY WITH UTETEROSCOPY, W\REMOVAL, MANIPULATION OF CALCULUS (WRVU 6.75) performed by Luis Michael Jr., MD at [facility] OSC PRO CYSTOSCOPY, INSERT URETERAL STENT Left 03/15/2023 CYSTO, STENT PLACEMENT (WRVU 2.82) performed by Luis Michael Jr., MD at [facility] OSC PRO CYSTOSCOPY, TX URETERAL STRICTURE Left 03/15/2023 CYSTOURETHROSCOPY, BALLOON DILATION OF URETERAL STRICTURE (WRVU 5.35) performed by Luis Michael Jr., MD at [facility] OSC PRO CYSTOURETHROSCOPY, FULGUR <.5CM LESN N/A 04/18/2017 CYSTO, FULGURATION\BLADDER LESION\W\WO BX\LESS THAN 0.5CM (WRVU 4.05) performed by Luis Michael Jr., MD at [facility] MAIN OR SHOULDER SURGERY Right 07/2019 XR FLUORO INJECTION DRAINAGE JOINT SM LEFT Left 09/12/2023 XR Fluoro Guided Joint Injection Small Left 09/12/[address] [facility] RAD XRAY XR FLUORO INJECTION DRAINAGE JOINT SM LEFT Left 01/24/2024 XR Fluoro Guided Joint Injection Small Left 01/24/[address] [facility] RAD XRAY XR FLUORO INJECTION DRAINAGE JOINT SM RIGHT Right 09/12/2023 XR Fluoro Guided Joint Injection Small Right 09/12/[address] [facility] RAD XRAY XR FLUORO INJECTION DRAINAGE JOINT SM RIGHT Right 01/24/2024 XR Fluoro Guided Joint Injection Small Right 01/24/[address] [facility] RAD XRAY FAMILY HX: Family History Problem Relation Age of Onset Osteoporosis Mother Depression Mother Breast Cancer Paternal Grandmother 45 Cancer Maternal Aunt lymph node CA Depression Father Colorectal Cancer Neg Hx Ovarian Cancer Neg Hx SOCIAL HX: Social History Occupational History Not on file Tobacco Use Smoking status: Never Passive exposure: Never Smokeless tobacco: Never Vaping Use Vaping status: Never Used Substance and Sexual Activity Alcohol use: No Drug use: No Sexual activity: Yes Partners: Male control/protection: Surgical Comment: vasectomy/04/2016 Mirena ROS: Constitutional: Denies fevers, chills Respiratory: Denies shortness of breath, cough Cardiac: Denies chest pain, palpitations GI: denies abdominal pain, nausea, vomiting Skin: Denies new rashes or lesions Neuro: no numbness Musculoskeletal: as above in HPI 01/08/2024 General Health, Prior Treatments, PreExisting Condition, Health Habits, About You PROMIS-10 General Health Good PROMIS-10 Quality of Life Good PROMIS-10 Physical Health Fair PROMIS-10 Mental Health Fair PROMIS-10 Social Activity Good PROMIS-10 Everyday Activities Completely PROMIS-10 Pain 5 PROMIS-10 Fatigue Mild PROMIS-10 Social Roles Good PROMIS-10 Anxious or Depressed Sometimes PROMIS PHYSICAL SCORE (range 16-68) 44.9 PROMIS MENTAL SCORE (range 21-68) 41.1 Treatments Tried Heat and ice therapy Brace Physical therapy Medicines applied on the skin (topical) Oral natural supplements (e.g chondroitin and glucosamine) Acetaminophen (e.g. Tylenol) Over the counter anti-inflammatory drugs (e.g Advil, Aspirin, Aleve) Injection of steroids or cortisone Employment status before injury Currently working Returned to previous employment Yes Working at same capacity as before injury Yes Spending time in inpatient rehab facility No Rate overall condition today 5 Multiple values from one day are sorted in reverse-chronological order No data to display No data to display PHYSICAL EXAM: Ms. Albright is a 58 y.o. female General appearance: in no acute distress, alert, cooperative Psych: cooperative with exam, appropriate Head: normocephalic, atraumatic EENT: EOMI grossly intact Neck: supple, trachea midline Cardiac: regular rate and rhythm by peripheral pulse Lungs: non-labored respirations Musculoskeletal: BUE Inspection: No erythema, edema, ecchymosis, abrasions. Palpation: Tender to palpation over pisotriquetral joint, flexor tendons from the mid palm to the mid forearm. Diffusely TTP over bilateral wrists. ROM: Full finger and wrist range of motion. Neurovascular: SGILT R/M/U/Ax nerve distributions; AIN/PIN/U nerves fire; 2+ radial pulse DIAGNOSTIC STUDIES: Left wrist MRI was personally reviewed and demonstrates a varicosity in the vicinity of the pisotriquetral joint, central TFCC degeneration. ASSESSMENT: Bilateral wrist pain PLAN: - The patient was counseled that the etiology of her wrist pain is unclear given the lack of pathology on MRI and may be coming from her neck as well. She was counseled on activity modification versus pursuing a cervical spine etiology with a Neurology consultation versus a referral to Dr. Henry for an US guided pisotriquetral injection which would provide both diagnostic in formation and hopefully therapeutic relief. - She will return for follow up PRN with Dr. Muñoz - The patient understands to contact us if they have any other questions or concerns. Dr. Muñoz also evaluated and spoke with the patient at today's visit. PEDRO LUIS ContrerasC Department of Orthopaedics [facility] * Vito Muñoz MD - 02/19/2024 9:15 AM EDT I examined Stacy Albright and I reviewed her right wrist xrays and MRI. I also reviewed her imaging in person with our [facility] radiologist. I am unable to definitively explain why she is having pain as she is describing based on the information that we currently have. I agree with АЛЕКСАНДР Yang' plan. documented in this encounter Plan of Treatment Upcoming Encounters Date Type Department Care Team (Late st Contact Info) Description 08/07/2024 3:30 PM EST Office Visit Orthopaedics at [place] [phone] Tarik Henry MD [facility] DR [place] [address] 09/22/2024 7:00 AM EST [place] [address] Luis Michael Jr., MD [facility] [place] [address] 09/22/2024 8:00 AM EST [place] [address] Luis Michael Jr., MD [facility] [place] [address] Scheduled Referrals Name Type Priority Associated Diagnoses Orde r Schedule Referral to Neurology Outpatient Referral Routine Bilateral wrist pain Ordered: 02/19/2024 documented as of this encounter Visit Diagnoses Diagnosis Bilateral wrist pain Pain in joint, forearm documented in this encounter Care Teams Transfer Clerk Relationship Specialty Start Date End Date David Lockhart PA [address] [place] [address] PCP - General Family Medicine 02/11/24 documented as of this encounter
--- OUTSIDE RECORDS SUMMARY | 2024-07-20 18:25 | XMS_ITS | Encounter Summary ---
Author Organization [facility] [place] [address] Care Team Providers Care Garbage Truck Helper Name Role Phone David Lockhart Primary Care Provider +1- [phone] Reason for Visit * Reason Comments Nephrolithiasis Encounter Details Date Type Department Care Team (Late st Contact Info) Description 03/09/2024 10:30 AM EDT [place] [address] Luis Michael Jr., MD [facility] [place] [address] Nephrolithiasis Social History Tobacco Use Types Packs/Day Years Used Date Smoking Tobacco: Never Passive Smoke Exposure: Never Smokeless Tobacco: Never Alcohol Use Standard Drinks/Week Comments No 0 (1 standard drink = 0.6 oz pur e alcohol) [facility] Inpatient Questions Answer Date Recorded Does [...] Sign Reading Time Taken Comments Blood Pressure 117/73 03/09/2024 10:22 AM EDT Pulse 69 03/09/2024 10:22 AM EDT Temperature - - Respiratory Rate - - Oxygen Saturation - - Inhaled Oxygen Concentration - - Weight - - Height - - Body Mass Index - - documented in this encounter Progress Notes * Luis Michael Jr., MD - 03/09/2024 10:30 AM EDT Images from the original note were not included. HPI: Stacy Albright is a 58 y.o. woman who returns for follow up regarding mixed CaPhos/ CaOx nephrolithiasis.. She is s/p SWL in 2007 and left ureterscopy in 07/2010. She had reported possible hematuria and requested to proceed with evaluation -- Microscopic u/a showed <1rbc/hpf. Cystoscopy revealed tiny raised lesion which was resected and 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 2021 ultrasound suggested a 4 to 6 mm left lower pole stone, which she opted to treat at 01/2023 visit. She underwent left URS on 03/15/23. Intraoperative findings were notable for narrowed distal leftureter could initially only accept pediatric 4.5fr needlescope ureteroscope, dilated to allow passage of standard 6.9fr ureteroscope. Ureter remained too narrow to allow passage of flexible ureteroscope, thus distal ureter dilated with tapered 9fr inner dilator of access sheath, finally allowing passage of flex x ureteroscope. Kidney fully inspected, two small left lower pole renal stones were identified, grasped, and extracted. Fluoroscopically and endoscopically stone free at procedure conclus ion. Metabolic evaluation with 24-hour urine notable for mild hypercalciuria. We discussed trial of thiazide which she had initially declined, but has now started at low dose 12.5mg daily in light of concomitant osteoporosis under the care of Dr Hinojosa. We performed 24h urine and she returns to review Returns to review interval 24h urine, BMP, and renal u/s 03/08/2024 9:36 PM REVIEW OF SYSTEMS Constitutional None of the above Ear / [...] the above Genitourinary None of the above PMHx: migraines, GERD, urolithiasis, osteoporosis PSurgHx: SWL, left ureteroscopy, multiple orthopedic surgeries. FamHx: no history of urolithiasis SocHx: no tobacco history; no alcohol use Her . DietHx: 3-4 liters fluid intake/day; low sodium intake; moderate purine/animal protein intake; moderate oxalate intake; moderate dairy intake . Physical Exam Vitals reviewed. Constitutional: General: She is not in acute distress. Appearance: She is not ill-appearing, toxic-appearing or diaphoretic. Cardiovascular: Rate and Rhythm: Normal rate. Pulmonary: Effort: Pulmonary effort is normal. No respiratory distress. Neurological: Mental Status: She is alert. ' Latest Reference Range & Units 02/11/24 10:20 Sodium 135 - 145 mmol/L 141 Potassium 3.5 - 5.0 mmol/L 3.9 Chloride 98 - 107 mmol/L 103 CO2 22 - 31 mmol/L 28 Anion Gap 5 - 15 mmol/L 10 BUN 8 - 18 mg/dL 15 Creatinine 0.70 - 1.20 mg/dL 0.88 Estimated GFR >=60 mL/min/1.73 m?? 75 Calcium 8.5 - 10.5 mg/dL 9.7 Stone Analysis: 70% Calcium phosphate (apatite). 20% Calcium oxalate dihydrate. 10% Calcium oxalatemonohydrate. Imaging studies: I independently reviewed renal ultrasound from 02/11/24, notable for suspected leftlower pole non obstructing stone (less prominent than previous) IMPRESSION 1. Single nonobstructing left-sided stone in the lower pole, 5 mm. 2. Otherwise normal appearance of both kidneys. 3. No hydronephrosis. No hydroureter at the level of a distended bladder. Electronically signed by: Alban Cedeño MD, [facility] ([phone]), at 02/11/2024 Impression/Plan: History of calcium phosphate nephrolithiasis, currently asymptomatic. 1) Low urine volume -- markedly improved/ resolved. We reviewed the 24h urine, discussed marked improvement and I encouraged her to continue current hydration. 2) mild hypercalciuria (without prior hypercalcemia). She continues HCTZ 12.5mg daily, with small increase in 24-hour urinary calcium on updated 24-hour urine. She will increase HCTZ to 12.5mg bid. If well tolerated, will discuss repeating 24h urine at next 6 month follow up 3) Mixed CaPhos/CaOx stone. We reviewed 24h urine, discussed improvement in supersaturation of bothCaOx and CaPhos. Continue current course, with increased hctz as noted above documented in this encounter Plan of Treatment Upcoming Encounters Date Type Department Care Team (Late st Contact Info) Description 08/07/2024 3:30 PM EST Office [place] [address] Tarik Henry MD [facility] [place] [address] 09/22/2024 7:00 AM EST Appointment [place] [address] Luis Michael Jr., MD [facility] [place] [address] 09/22/2024 8:00 AM EST Office Visit Urology at [place] [phone] Luis Michael Jr., MD [facility] [place] [address] Scheduled Orders Name Type Priority Associated Diagnoses Orde r Schedule US Retroperitoneal Complete Imaging Routine Nephrolithiasis Expected: 09/09/2024, Expires: 03/09/2025 documented as of this encounter Visit Diagnoses Diagnosis Nephrolithiasis Calculus of kidney documented in this encounter Care Teams Garbage Truck Helper Relationship Specialty Start Date End Date David Lockhart PA [address] [place] [address] PCP - General Family Medicine 02/11/24 documented as of this encounter
--- OUTSIDE RECORDS SUMMARY | 2024-07-20 18:25 | XMS_ITS | Encounter Summary ---
Author Organization [facility] [place] [address] Care Team Providers Care Pipe And Boiler Covers Supervisor Name Role Phone David Lockhart Primary Care Provider +1- [phone] Reason for Visit * Reason Onset Date Comments Bumped Appointment 05/22/2024 Encounter Details Date Type Department Care Team (Late st Contact Info) Description 05/22/2024 Telephone [place] [address] Tarik Henry MD [facility] [place] [address] Bumped Appointment Social History Tobacco Use Types Packs/Day Years Used Date Smoking Tobacco: Never Passive Smoke Exposure: Never Smokeless Tobacco: Never Alcohol Use Standard Drinks/Week Comments No 0 (1 standard drink = 0.6 oz pur e alcohol) [facility] Inpatient Questions Answer Date Recorded [...] encounter Miscellaneous Notes * Telephone Encounter - Juanis Mesa - 05/22/2024 3:43 PM EDT Rescheduled. * Telephone Encounter - Nohelia Edouard - 05/22/2024 2:07 PM EDT LM#1 to reschedule bumped appointment with VU scheduled on 07/03. Please reschedule to NEXT AVAILABLE NXR // BILAT WRIST INJECTIONS . documented in this encounter Plan of Treatment Upcoming Encounters Date Type Department Care Team (Late st Contact Info) Description 08/07/2024 3:30 PM EST Office Visit Orthopaedics at [place] [phone] Tarik Henry MD [facility] [place] [address] 09/22/2024 7:00 AM EST Appointment Ultrasound at [address] Luis Michael Jr., MD [facility] [place] [address] 09/22/2024 8:00 AM EST Office Visit Urology at [place] [phone] Luis Michael Jr., MD [facility] [place] [address] documented as of this encounter Visit Diagnoses Not on filedocumented in this encounter Care Teams Pipe And Boiler Covers Supervisor Relationship Specialty Start Date End Date David Lockhart PA [address] [place] [address] PCP - General Family Medicine 02/11/24 documented as of this encounter
--- OUTSIDE RECORDS SUMMARY | 2024-07-20 18:25 | XMS_ITS | Encounter Summary ---
[place] [address] Care Team Providers Care Pre K Special Education Teacher Name Role Phone David Lockhart Primary Care Provider +1- [phone] Encounter Details Date Type Department Care Team (Latest Contact Info) Description 03/25/2024 1:09 PM EDT - 03/25/2024 11:59 PM EDT Hospital Encounter Mammography/[place] [address] Janet Davey, [employer] [address] [place], [place] [id number] Encounter for screening mammogram for breast cancer Discharge Disposition: Home Social History Tobacco Use [...] azelastine (ASTELIN) 137 mcg (0.1 %) Aerosol, [place] as needed. 0 06/17/2017 SUMAtriptan (IMITREX) 100 [...] 3:30 PM EST Office [place] [phone] Tarik Henry MD [facility] [place] [address] 09/22/2024 7:00 AM EST [place] [phone] Luis Michael Jr., MD [facility] [place] [address] 09/22/2024 8:00 AM EST [place] [phone] Luis Michael Jr., MD [facility] [place] [address] documented as of this encounter Procedures Procedure Name Priority Date/Time Associated Diagnosis Comments MAMMO SCREENING CAD AND ANTHONY BILATERAL Routine 03/25/2024 1:25 PM EDT Encounter for screening mammogram for breast cancer documented in this encounter Results * Mammo Screening Cad and Anthony Bilateral [...] who have questions please contact the health child care associate teacher that requested your imaging first. ? Electronically signed by: Georgette Guadalupe MD, [facility] ([phone]), at 03/30/2024 9:47 AM Narrative 03/30/2024 9:47 [...] with cysts ??in the bilateral breasts. Janet K Petar [employer] IMG MAMMO ORDERABLES documented in this encounter Visit Diagnoses Diagnosis Encounter for screening mammogram for breast cancer documented in this encounter Care Teams Pre K Special Education Teacher Relationship Specialty Start Date End Date David Lockhart PA [address] [place] [address] PCP - General Family Medicine 02/11/24 documented as of this encounter
--- OUTSIDE RECORDS SUMMARY | 2024-07-20 18:25 | XMS_ITS | Encounter Summary ---
Author Organization [facility] [place] [address] Care Team Providers Care Proof Carrier Name Role Phone David Lockhart Primary Care Provider +1- [phone] Encounter Details Date Type Department Care Team (Latest Contact Info) Description 02/18/2024 12:15 PM EDT Laboratory Appointment Lab [address] [place] [address] Hormone replacement therapy (postmenopausal) Social History Tobacco Use Types Packs/Day Years Used Date Smoking Tobacco: Never Passive Smoke Exposure: Never Smokeless Tobacco: Never Alcohol Use Standard Drinks/Week Comments No 0 (1 standard drink = 0.6 oz pur e alcohol) [facility] Inpatient Questions Answer Date Recorded Does Anyone [...] 3:30 PM EST Office [place] [address] Tarik Henry MD [facility] [place] [address] 09/22/2024 7:00 AM EST Appointment Ultrasound at [place] [phone] Luis Michael Jr., MD [facility] [place] [address] 09/22/2024 8:00 AM EST [place] [address] Luis Michael Jr., MD [facility] [place] [address] documented as of this encounter Procedures Procedure Name Priority Date/Time Associated Diagnosis Comments LIPID PANEL (REFLEX DIRECT LDL) Routine 02/18/2024 11:58 AM EDT Hormone replacement therapy (postmenopausal) documented in this encounter Results * Lipid Panel (Reflex Direct LDL) (02/18/2024 11:58 AM EDT) Cholesterol, Total 176 mg/dL [facility] Comment: Desirable: ? <200 mg/dL Borderline High: 200-239 mg/dL Higher: ?>wc=864 mg/dL Triglyceride 68 mg/dL [facility] Comment: Normal: ?<150 mg/dL Borderline High: 150-199 mg/dL High: ?200-499 mg/dL Very High: ? >ho=322 mg/dL HDL Cholesterol 75 mg/dL [facility] Comment: Females: High Risk: <50 mg/dL Males: High Risk: <40 mg/dL LDL Cholesterol 87 mg/dL [facility] Comment: Desirable: ? <100 mg/dL Above Desirable: 100-129 mg/dL Borderline High: 130-159 mg/dL High: ?160-189 mg/dL Very High: ? >he=835 mg/dL Lipid Interpretation See Note [facility] Comment: It is important to review the results of your lipid panel with your health care provider. You can compare your lipid results to the ranges below and whether they are in the desirable range. These ranges are only meant to be used for people without known cardiac disease, history of stroke, or peripheral vascular disease (blockages in the leg arteries or diabetes). If ??you have one of these conditions, your desirable LDL-C (bad cholesterol) will likely be even lower. ACC/AHA Guidelines (most recently Rosio et al. [facility] 05/29/22): For individuals with atherosclerotic cardiovascular disease (ASCVD)or LDL >qb=172 mg/dL, use a high-intensity statin (40-80 mg atorvastatin or 20-40 mg rosuvastatin with goal >or=50% LDL reduction) For individuals with diabetes, age 40-75 without ASCVD, moderate-intensity statin (goal 30-49% LDL reduction); consider high intensity statin for those with increased risk. For adults without diabetes or ASCVD, aged 40-75 with LDL 70-189 mg/dL, estimate 10 year ASCVD risk with smartphrase .ASCVDRISK or Dynamed Decisions. If 10 year risk is 7.5%-19.9% (intermediate risk), consider moderate intensity statin based on risk enhancers and patient preference. Consider coronary artery calcium test (CT) if there is concern regarding the benefit of a statin. If ten year risk is >or=20%, initiate high-intensity statin. Evaluate for secondary causes of triglycerides >500 mg/dL or LDL >190 mg/dL. Lifestyle modification is a critical component of ASCVD risk reduction. If not reaching LDL goals on maximally tolerated statin, consider ezetimibe and/or a PCSK9 inhibitor: Target for primary prevention: LDL<100 Target for those with ASCVD or diabetes and 10-year risk >or=20%: LDL<70 Target for those with very high risk ASCVD: LDL<55 (Very high risk being the presence of 2 or more of: recent acute coronary syndrome, past myocardial infarction, ischemic stroke, symptomatic peripheral artery disease) Blood 02/18/2024 11:5 8 AM EDT 02/18/2024 12:16 PM EDT Narrative Resulting Agency Comment Spec In Lab Rosita Riddle MD CHEMISTRY [facility] [place] [address] documented in this encounter Visit Diagnoses Diagnosis Hormone replacement therapy (postmenopausal) Need for prophylactic hormone replacement therapy (postmenopausal) documented in this encounter Care Teams Proof Carrier Relationship Specialty Start Date End Date David Lockhart PA [address] [place] [address] PCP - General Family Medicine 02/11/24 documented as of this encounter
--- OUTSIDE RECORDS SUMMARY | 2024-07-20 18:25 | XMS_ITS | Encounter Summary ---
Author Organization [facility] Victor [place] [address] Care Team Providers Care Mat Roller Name Role Phone David Lockhart Primary Care Provider +1- [phone] Encounter Details Date Type Department Care Team (Late st Contact Info) Description 04/10/2024 External [place] [address] Kenya Albright MD [facility] [place] [address] Social History Tobacco Use Types Packs/Day Years Used Date Smoking Tobacco: Never Passive Smoke Exposure: Never Smokeless Tobacco: Never Alcohol Use Standard Drinks/Week Comments No 0 (1 standard drink = 0.6 oz pur e alcohol) [facility] Inpatient Questions Answer Date [...] 3:30 PM EST Office Visit Orthopaedics at [place] [phone] Tarik Henry MD [facility] [place] [address] 09/22/2024 7:00 AM EST Appointment Ultrasound at [address] Luis Michael Jr., MD [facility] [place] [address] 09/22/2024 8:00 AM EST Office [place] [address] Luis Michael Jr., MD [facility] [place] [address] documented as of this encounter Procedures Procedure Name Priority Date/Time Associated Diagnosis Comments MISC EXTERNAL NEUROLOGY PROCEDURE RESULT Routine 04/06/2024 12:31 PM EDT documented in this encounter Results * External Neurology Procedure Result (04/06/2024 12:31 PM EDT) Kenya Albright MD EXTERNAL NEUROLOGY RESULT documented in this encounter Visit Diagnoses Not on filedocumented in this encounter Care Teams Mat Roller Relationship Specialty Start Date End Date David Lockhart PA [address] [place] [address] PCP - General Family Medicine 02/11/24 documented as of this encounter
--- OUTSIDE RECORDS SUMMARY | 2024-07-20 18:25 | XMS_ITS | Encounter Summary ---
Author Organization [facility] [place] [address] Care Team Providers Care Operations Professional Name Role Phone David Lockhart Primary Care Provider +1- [phone] Reason for Visit * Reason Comments Medication Refill Encounter Details Date Type Department Care Team (Late st Contact Info) Description 03/09/2024 Refill Obstetrics [place] [address] Mil Randhawa APRN [facility] OBSTETRICS [place] [address] Social History Tobacco Use Types Packs/Day Years Used Date Smoking Tobacco: Never Passive Smoke Exposure: Never Smokeless Tobacco: Never Alcohol Use Standard Drinks/Week Comments No 0 (1 standard drink = 0.6 oz pur e alcohol) [facility] Inpatient Questions Answer Date Recorded Does Anyone [...] 3:30 PM EST Office [place] [address] Tarik Henry MD [facility] DR ORTHOPA[place] [address] 09/22/2024 7:00 AM EST [place] [address] Luis Michael Jr., MD [facility] [place] [address] 09/22/2024 8:00 AM EST [place] [address] Luis Michael Jr., MD [facility] [place] [address] documented as of this encounter Visit Diagnoses Not on filedocumented in this encounter Care Teams Operations Professional Relationship Specialty Start Date End Date David Lockhart PA [address] [place] [address] PCP - General Family Medicine 02/11/24 documented as of this encounter
--- OUTSIDE RECORDS SUMMARY | 2024-07-20 18:25 | XMS_ITS | Encounter Summary ---
Author Organization [facility] [place] [address] Care Team Providers Care Dialysis Biomed Technician Name Role Phone David Lockhart Primary Care Provider +1- [phone] Encounter Details Date Type Department Care Team (Latest Contact Info) Description 03/08/2024 Travel Social History Tobacco Use Types Packs/Day [...] 3:30 PM EST Office [place] [address] Tarik Henry MD [facility] [place] [address] 09/22/2024 7:00 AM [place] [address] Luis Michael Jr., MD [facility] [place] [address] 09/22/2024 8:00 AM EST [place] [address] Luis Michael Jr., MD [facility] [place] [address] documented as of this encounter Visit Diagnoses Not on filedocumented in this encounter Care Teams Dialysis Biomed Technician Relationship Specialty Start Date End Date David Lockhart PA [address] [place] [address] PCP - General Family Medicine 02/11/24 documented as of this encounter
--- OUTSIDE RECORDS SUMMARY | 2024-07-20 18:25 | XMS_ITS | Encounter Summary ---
Author Organization [facility] [place] [address] Care Team Providers Care Pigment Grinder Name Role Phone David Lockhart Primary Care Provider +1- [phone] Encounter Details Date Type Department Care Team (Latest Contact Info) Description 06/05/2024 Travel Social History Tobacco Use Types Packs/Day [...] 3:30 PM EST Office Visit [place] [address] Tarik Henry MD [facility] [place] [address] 09/22/2024 7:00 AM EST Appointment [place] [address] Luis Michael Jr., MD [facility] [place] [address] 09/22/2024 8:00 AM EST Office Visit [place] [address] Luis Michael Jr., MD [facility] [place] [address] documented as of this encounter Visit Diagnoses Not on filedocumented in this encounter Care Teams Pigment Grinder Relationship Specialty Start Date End Date David Lockhart PA [address] [place] [address] PCP - General Family Medicine 02/11/24 documented as of this encounter
--- OUTSIDE RECORDS SUMMARY | 2024-07-20 18:25 | XMS_ITS | Encounter Summary ---
Author Organization [facility] [place] [address] Care Team Providers Care C Winforms Developer Name Role Phone David Lockhart Primary Care Provider +1- [phone] Encounter Details Date Type Department Care Team (Late st Contact Info) Description 06/15/2024 Orders Only Hematology [place] [address] [facility] [facility] [place] [address] Family history of malignant neoplasm of breast; Family history of malignant neoplasm of ovary Social History Tobacco Use Types Packs/Day Years Used Date Smoking Tobacco: Never Passive Smoke Exposure: Never Smokeless Tobacco: Never Alcohol Use Standard Drinks/Week Comments No 0 (1 standard drink = 0.6 oz pur e alcohol) [facility] Inpatient Questions Answer Date Recorded Does Anyone [...] 3:30 PM EST Office Visit Orthopaedics at [place] [phone] Tarik Henry MD [facility] [place] [address] 09/22/2024 7:00 AM EST [place] [address] Luis Michael Jr., MD [facility] [place] [address] 09/22/2024 8:00 AM EST Office Visit Urology at [place] [phone] Luis Michael Jr., MD [facility] [place] [address] documented as of this encounter Visit Diagnoses Diagnosis Family history of malignant neoplasm of breast Family history of malignant neoplasm of ovary documented in this encounter Care Teams C Winforms Developer Relationship Specialty Start Date End Date David Lockhart PA [address] [place] [address] PCP - General Family Medicine 02/11/24 documented as of this encounter
--- OUTSIDE RECORDS SUMMARY | 2024-07-20 18:25 | XMS_ITS | Encounter Summary ---
Author Organization [facility] [place] [address] Care Team Providers Care Experimental Rocket Sled Mechanic Name Role Phone David Lockhart Primary Care Provider +1- [phone] Reason for Visit * Reason Comments Medication Refill Encounter Details Date Type Department Care Team (Late st Contact Info) Description 05/11/2024 [place] [address] Tong Norman MD [facility] P[place]MONARY [place] [address] Vasomotor rhinitis Social History Tobacco Use Types Packs/Day Years Used Date Smoking Tobacco: Never Passive Smoke Exposure: Never Smokeless Tobacco: Never Alcohol Use Standard Drinks/Week Comments No 0 (1 standard drink = 0.6 oz pur e alcohol) [facility] Inpatient Questions Answer Date Recorded Does Anyone [...] 3:30 PM EST [place] [address] Tarik Henry MD [facility] DR ORTHOPAEDIC [place] [address] 09/22/2024 7:00 AM EST Appointment Ultrasound at [place] [phone] Luis Michael Jr., MD [facility] [place] [address] 09/22/2024 8:00 AM EST [place] [address] Luis Michael Jr., MD [facility] [place] [address] documented as of this encounter Visit Diagnoses Diagnosis Vasomotor rhinitis Allergic rhinitis, cause unspecified documented in this encounter Care Teams Experimental Rocket Sled Mechanic Relationship Specialty Start Date End Date David Lockhart PA [address] [place] [address] PCP - General Family Medicine 02/11/24 documented as of this encounter
--- OUTSIDE RECORDS SUMMARY | 2024-07-20 18:25 | XMS_ITS | Encounter Summary ---
Author Organization [facility] [place] [address] Care Team Providers Care Rug Renovator Name Role Phone aDvid Lockhart Primary Care Provider +1- [phone] Encounter Details Date Type Department Care Team (Latest Contact Info) Description 02/17/2024 Travel Social History Tobacco Use Types Packs/Day [...] EST Office [place] [address] Tarik Henry MD [facility] DR [place] [address] 09/22/2024 7:00 AM EST [place]oint[place] [address] Luis Michael Jr., MD [facility] [place] [address] 09/22/2024 8:00 AM EST [place] [address] Luis Michael Jr., MD [facility] [place] [address] documented as of this encounter Visit Diagnoses Not on filedocumented in this encounter Care Teams Rug Renovator Relationship Specialty Start Date End Date Dvaid Lockhart PA [address] [place] [address] PCP - General Family Medicine 02/11/24 documented as of this encounter
--- OUTSIDE RECORDS SUMMARY | 2024-07-20 18:25 | XMS_ITS | Encounter Summary ---
Author Organization [facility] [place] [address] Care Team Providers Care Sustainability Officer Name Role Phone David Lockhart Primary Care Provider +1- [phone] Encounter Details Date Type Department Care Team (Late st Contact Info) Description 02/17/2024 Telephone Obstetrics [place] [address] Jeanette Lopez Social History Tobacco Use Types Packs/Day Years Used Date Smoking Tobacco: Never Passive Smoke Exposure: Never Smokeless Tobacco: Never Alcohol Use Standard Drinks/Week Comments No 0 (1 standard drink = 0.6 oz pur e alcohol) [facility] Inpatient Questions Answer Date Recorded Does Anyone [...] 3:30 PM EST [place] [address] Tarik Henry MD [facility] [place]THOPAEDIC [place] [address] 09/22/2024 7:00 AM EST Appointment Ultrasound at [place] [phone] Luis Michael Jr., MD [facility] [place] [address] 09/22/2024 8:00 AM EST [place] [address] Luis Michael Jr., MD [facility] [place] [address] documented as of this encounter Visit Diagnoses Not on filedocumented in this encounter Care Teams Sustainability Officer Relationship Specialty Start Date End Date David Lockhart PA [address] [place] [address] PCP - General Family Medicine 02/11/24 documented as of this encounter
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
--- OUTSIDE RECORDS SUMMARY | 2024-07-20 18:25 | XMS_ITS | Encounter Summary ---
Author Organization Formerly [facility] [place] [address] Care Team Providers Care Director Of Compensation Name Role Phone David Lockhart Primary Care Provider [phone]- [phone] Reason for Visit * Reason Comments Genetic Evaluation * Consultation (Priority 1) - Closed Specialty Diagnoses / Procedures Referred By Alberta mendosa Referred To Contact Genetics Diagnoses Family history of ovarian cancer Reyna Fernandez, [facility] [place] [address] [facility] [address] [place] [address] Referral ID Status Reason Start Date Expiration Date V isits Requested Visits Authorized [id number] Closed Consult, Test & Treat 12/17/2023 12/16/2024 1 1 Encounter Details Date Type Department Care Team (Late st Contact Info) Description 06/16/2024 3:00 PM EDT Office Visit Hematology [place] [address] Tiffanie Moncada, [facility] [address] [place] [address] Family history of ovarian cancer; Family history of malignant neoplasm of breast Social History Tobacco Use Types Packs/Day Years [...] as of this encounter Progress Notes * Tiffanie Moncada LGC - 06/16/2024 3:00 PM EDT Stacy Albright was seen by GILMA Jose in consultation at the request of Reyna Fernandez to advise regarding possible heritable predisposition to cancer. I spent 30 minutes of this in person encounter with the patient gathering medical and family history and discussing the likelihood of a genetic predisposition to cancer and the option of genetic testing. GILMA Elizabeth was present for today's visit. Reason for referral/Chief complaint Family history of breast and ovarian cancer. Medical history Cancer hx and treatment: Stacy is a 58yo female who denies any personal history of cancer. Family History Problem Relation Age of Onset Ovarian Cancer Mother 81 Breast Cancer Paternal Grandmother 45 Lymphoma Maternal Aunt lymph node CA Ancestry is unknown. There is no known Ashkenazi Pentecostal ancestry. Genetic risk assessment Based on personal and/or family history, the likelihood that Stacy would be found to have a mutation in a cancer predisposition gene is high enough to offer the option of genetic testing. Specifically, Stacy meets NCCN criteria for BRCA1/2 gene analysis based on her family history of ovarian cancer in her mother. Stacy also meets NCCN criteria for BRCA1/2 gene analysis based on her paternal family history of breast cancer in her paternal grandmother diagnosed at age 45. Her mother and paternal grandmother are and unavailable to test, therefore it is reasonable to offer Stacy genetic testing. Genetic test results may inform Stacy and her relatives of their hereditary cancer risks and guide cancer screening recommendations. We reviewed the lifetime cancer risks and medical management recommendations associated with mutations in the BRCA1 and BRCA2 genes, including high-risk breast cancer screening with mammography and breast MRIs vs prophylactic bilateral mastectomy, as well as prophylactic removal of the ovaries and f allopian tubes (bilateral salpingo-oophorectomy). We also discussed risks for prostate, male breast, and pancreatic cancer. Panel genetic testing for an inherited predisposition to cancer, including breast and ovarian cancer, was discussed. The risks, benefits and limitations of panel genetic testing were reviewed, specifically a high rate of identifying a variant of uncertain significance, lack of knowledge of cancer risk for newly identified, moderate risk genes included in the panel and lack of effective screening,as well as cancer risk for other cancers not observed in the family. We reviewed dominant inheritance, meaning that if a mutation is detected there is a 50% chance for Stacy's children and siblings to have also inherited the same gene alteration. We discussed the Genetic Information Nondiscrimination Act (ANGI), a federal law prohibiting discrimination by health insurance companies and most employers based on genetic information. ANGI does not apply to life insurance, disability insurance or long-term care insurance. More information about ANGI may be found at GinaHelp.org. Stacy opted for testing with [employer]' CancerNext-Expanded+RNAInsight Panel, a next generation sequencing panel that simultaneously analyzes 71 genes, including BRCA1 and BRCA2, that contribute to increased risk for cancer. Stacy was consented. Her blood sample was drawn and sent to [employer]. We reviewed [employer]'s billing policy. Stacy will be notified by text and/or email once [employer] completes their benefits investigation if her estimated out of pocket cost is over $100. At that time, if Stacy is concerned about the estimated test cost she will have the option to contact [employer] directly and either apply for [employer]'s patient assistance program to try and reduce cost of testing based on in come information, cancel testing, or switch to a self-pay option of $250. If Stacy does not respond to [employer], testing will be billed to her insurance as the default option. Testing will take up to 3 weeks from when the lab receives the sample. Stacy will be contacted [employer] once her test results become available. At that time, we will discuss with Stacy the implications that this test result may have for her as well as her family members, review any recommended screening guidelines for cancer prevention and early detection, and answer any questions she may have. documented in this encounter Plan of Treatment Upcoming Encounters Date Type Department Care Team (Late st Contact Info) Description 08/07/2024 3:30 PM EST Office [place] [address] Tarik Henry MD [facility] [place] [address] 09/22/2024 7:00 AM EST Appointment [place] [phone] Luis Michael Jr., MD [facility] [place] [address] 09/22/2024 8:00 AM EST Office [place] [phone] Luis Michael Jr., MD [facility] [place] [address] Scheduled Referrals Name Type Priority Associated Diagnoses Orde r Schedule Referral to Familial Cancer Program (Genetics) Outpatient Referral Routine Family history of ovarian cancer Ordered: 12/17/2023 documented as of this encounter Visit Diagnoses Diagnosis Family history of ovarian cancer Family history of malignant neoplasm of ovary Family history of malignant neoplasm of breast documented in this encounter Care Teams Director Of Compensation Relationship Specialty Start Date End Date David Lockhart PA [address] [place] [address] PCP - General Family Medicine 02/11/24 documented as of this encounter
--- OUTSIDE RECORDS SUMMARY | 2024-07-20 18:25 | XMS_ITS | Encounter Summary ---
Author Organization Formerly [facility] [place] [address] Care Team Providers Care Loading Unit Tool Setter Name Role Phone David Lockhart Primary Care Provider [phone]- [phone] Encounter Details Date Type Department Care Team (Latest Contact Info) Description 02/18/2024 12:23 PM EDT - 02/18/2024 11:59 PM EDT Hospital En[place] [address] Rosita Almazan MD [facility] [place] [address] Postmenopausal bleeding Discharge Disposition: Home Social History Tobacco Use Types Packs/Day Years Used Date Smoking Tobacco: Never Passive Smoke Exposure: Never Smokeless Tobacco: Never Alcohol Use Standard Drinks/Week Comments No 0 (1 standard drink = 0.6 oz pur e alcohol) [facility] Inpatient Questions Answer Date Recorded Does [...] Sig Dispensed Refills Start Date End Date sertraline (Zoloft) 25 mg tablet Take 100 [...] azelastine (ASTELIN) 137 mcg (0.1 %) Aerosol, Blair as needed. 0 06/17/2017 SUMAtriptan (IMITREX) 100 mg Tablet as needed for Migraine. 1 04/13/2016 hydrocortisone (WESTCORT) 0.2 % Cream Apply topically as needed. 07/25/2015 multivitamin (THERAGRAN) tablet Take 1 tablet by mouth daily. montelukast (SINGULAIR) 10 mg tablet Take 10 mg by mouth daily as needed. 12/07/2010 albuterol (ACCUNEB) 0.63 mg/3 mL nebulizer solution 08/24/2010 ipratropium (ATROVENT) 21 mcg (0.03 %) Blair, Non-AerosolIndications :Vasomotor rhinitis SPRAY TWO SPRAYS INTO EACH NOSTRIL TWICE A DAY 30 mL 3 09/16/2023 03/13/2024 hydroCHLOROthiazide (Microzide) 12.5 mg capsule TAKE ONE CAPSULE BY MOUTH EVERY DAY 90 capsule 07/04/2023 03/09/2024 tamsulosin (Flomax) 0.4 mg capsule Take 1 capsule by mouth daily. 90 tablet 03/15/2023 02/19/2024 estradioL 0.1 mg/24 hr Patch Semiweekly Change 1 patch on the skin twice a week. 8 patch 12 01/14/2023 03/11/2024 documented as of this encounter Plan of Treatment Upcoming Encounters Date Type Department Care Team (Late st Contact Info) Description 08/07/2024 3:30 PM EST Office Visit Orthopaedics at [place] [phone] Tarik Henry MD [facility] [place] [address] 09/22/2024 7:00 AM EST Appointment Ultrasound at [place] [phone] Luis Michael Jr., MD [facility] [address] 09/22/2024 8:00 AM EST Office Visit Urology at [place] [phone] Luis Michael Jr., MD [facility] [place] [address] documented as of this encounter Procedures Procedure Name Priority Date/Time Associated Diagnosis Comments US TRANSVAGINAL NON OB Routine 02/18/2024 1:17 PM EDT Postmenopausal bleeding documented in this encounter Results * US Transvaginal Non OB (02/18/2024 1:17 PM EDT) WORKSTATION ID [id number] RAD Anatomical Region Laterality Modality Ultrasound 02/18/2024 12:3 8 PM EDT Impressions 02/18/2024 2:47 PM EDT 1. ??IUD is in appropriate position within the endometrial cavity. Limited evaluation of the endometrium due to the presence of the IUD, appears normal where seen with an estimated bilayer thickness of 2.6 mm. 2. ??Sonographic appearance of the uterus as described suggestive of adenomyosis. 3. ??Stable subcentimeter simple right ovarian cyst. 4. ??Interval simple 1 cm left ovarian cyst. 5. ??8 mm simple right adnexal cyst, not seen on prior 2021 ultrasound. Electronically signed by: Genie Carrasco MD, [facility] ([phone]), at 02/18/2024 2:40 PM Thank you for letting us participate in the care of this patient. If you are a health care provider and have any questions regarding this report, please contact the number above. For patients who have questions, please contact the health children's zoo caretaker that requested your imaging first. ?Genie Carrasco, [employer] Sheet Finishing Press Operator Electronically Signed Final Report ?? 02/18/2024 02:46 pm Narrative 02/18/2024 2:47 PM EDT Gynecological Report ?(Signed Final 02/18/2024 02:46 pm) PATIENT INFO: ID #: ? [id number] ?: ??[birth year] (58 yrs)(F) Name: ? JESSICANatalie GTZ ?Visit Date: 02/18/2024 12:38 pm PERFORMED BY: Attending: ?Luna GILL, Genie Dumont Performed By: ? Citlaly Billings RDMS Referred By: ?ROSITA ALMAZAN Location: ? [place] SERVICE(S) PROVIDED: UTV - Transvaginal - [id number] ?[id number] U3D - ??3D rendering with interpretation - [id number] ? [id number] INDICATIONS: PMB, on HRT. IUD in place. TECHNIQUE/SCAN QUALITY: Technique: ?Transducer ID#:[id number] COMPARISON: US transvaginal 01/25/22 -------- HISTORY: -------- Age: ?? 58 ------- UTERUS: ------- Uterus: ? Visualized Position: ?? Anteverted Size (cm) ?L: ??7.9 ? W: ?? 4.1 ?H: ??3.8 Description: ?? Heterogeneous with fan beam shadowing, ?myometrial cysts, and somewhat globular ?uterine configuration suggestive of ?adenomyosis. ENDOMETRIUM: Endometrium: ?Normal where seen Thickness(mm): ?2.64 Comment: ? 3D rendering with interpretation was performed ?for IUD placement. IUD seen in normal position ?within the endometrial cavity. ------- CERVIX: ------- Nabothian cysts seen CUL-DE-SAC: A trace amount of free fluid is noted and in the right adnexa. RIGHT OVARY: Status: ?? Visualize Size (cm) ?L: ??2.5 ? W: ?? 1.5 ?H: ??0.9 Vol (ml): ?1.8 Type: ?? Simple cyst Size (cm) ?L: ??0.6 ? W: ?? 0.7 ?H: ??0.6 Vol (ml): ?0.1 LEFT OVARY: Status: ?? Visualized Size (cm) ?L: ??1.9 ? W: ?? 1.2 ?H: ??1.5 Vol (ml): ?1.8 Type: ?? Simple cyst Size (cm) ?L: ??1.0 ? W: ?? 1.0 ?H: ??0.6 Vol (ml): ?0.3 --------- COMMENTS: --------- Right adnexal simple cystic structure measuring 8 x 7 x 8 mm. Procedure Note Genie Carrasco MD - 02/18/2024 Gynecological Report (Signed Final 02/18/2024 02:46 pm) PATIENT INFO: ID #: [id number] : [birth year] (58 yrs)(F) Name: JESSICA GTZ Visit Date: 02/18/2024 12:38 pm PERFORMED BY: Attending: Genie Carrasco MD Performed By: Citlaly Billings RDMS Referred By: ROSITA ALMAZAN Location: [place] SERVICE(S) PROVIDED: UTV - Transvaginal - [id number] U3D - 3D rendering with interpretation - [id number] INDICATIONS: PMB, on HRT. IUD in place. [...] where seen with an estimated bilayer thickness of 2.6 mm. 2. Sonographic appearance of the uterus as described suggestive of adenomyosis. 3. Stable subcentimeter simple right ovarian cyst. 4. Interval simple 1 cm left ovarian cyst. 5. 8 mm simple right adnexal cyst, not seen on prior 2021 ultrasound. Electronically signed by: Genie Carrasco MD, [facility] ([phone]), at 02/18/2024 2:40 PM Thank you for letting us participate in the care of this patient. If you are a health care provider and have any questions regarding this report, please contact the number above. For patients who have questions, please contact the health children's zoo caretaker that requested your imaging first. Genie Carrasco, [employer] Sheet Finishing Press Operator Electronically Signed Final Report 02/18/2024 02:46 pm Rosita Almazan MD IMG US PELVIC OR DERABLES documented in this encounter Visit Diagnoses Diagnosis Postmenopausal bleeding documented in this encounter Care Teams Loading Unit Tool Setter Relationship Specialty Start Date End Date David Lockhart PA [address] [place] [address] PCP - General Family Medicine 02/11/24 documented as of this encounter
--- OUTSIDE RECORDS SUMMARY | 2024-07-20 18:25 | XMS_ITS | Encounter Summary ---
Author Organization Formerly [facility] Address [facility] [place] [address] Care Team Providers Care Pony Edger Name Role Phone David Lockhart Primary Care Provider +1- [phone] Reason for Visit * Reason Comments Establish Care Bilat wrist pain * Consultation (Routine) - Closed Specialty Diagnoses / Procedures Referred By Alberta mendosa Referred To Contact Orthopaedics Diagnoses Right wrist tendonitis Vito Muñoz MD [facility] [place] [address] Tarik Henry MD [facility] [place] [address] Referral ID Status Reason Start Date Expiration Date V isits Requested Visits Authorized [id number] Closed Consult, Test & Treat 03/09/2024 03/09/2025 1 1 Encounter Details Date Type Department Care Team (Latest Contact Info) Description 04/03/2024 1:00 PM EDT Office [place] [address] Tarik Henry MD [facility] ORTHOPAEDIC SURGERY [place], [place] [phone] Bilateral wrist pain; Injury of triangular fibrocartilage complex (TFCC) of left wrist, initial encounter; TFCC (triangular fibrocartilage complex) injury, right, initial encounter Social History Tobacco Use Types [...] - - Weight 61.2 kg (135 lb) 04/03/2024 12:50 PM EDT Height 170.2 cm (5' 7) 04/03/2024 12:50 PM EDT Body Mass Index 21.14 04/03/2024 12:50 PM EDT documented in this encounter Progress Notes * Tarik Henry MD - 04/03/2024 1:00 PM EDT [facility] NEW VISIT NOTE CC: Establish Care (Bilat wrist pain) HPI: The patient is a 58 y.o. female who presents with Establish Care (Bilat wrist pain) Patient presents today with bilateral wrist pain located in multiple areas, volar knee, ulnarly, radially. This all began last summer after she overdid it carrying stuff when her ,and then taken care of both of her parents as they were sick. Today the pain is rated 5/10, described as achy, sharp, tingling, dull. She notes that the pain occurs constantly, and is getting worse overall. It is worse when she is using her hands, carrying, lifting things that are moderate to heavy, improved with ice and rest. 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 The patient is tried medications, PT, chiropractor, injections into the thumb which have given her relief in that area. Relevant labs- BMI Readings from Last 2 Encounters: 04/03/24 21.14 kg/m?? 03/25/24 22.55 kg/m?? No results found for: HA1C No results found for: INR, PT Lab Results Component Value Date NA 141 02/11/2024 K 3.9 02/11/2024 CL 103 02/11/2024 CO2 28 02/11/2024 BUN 15 02/11/2024 CREATININE 0.88 02/11/2024 GLUCOSE 55 (L) 02/11/2024 CALCIUM 9.7 02/11/2024 ESTGFR 75 02/11/2024 BP Readings from Last 3 Encounters: 03/25/24 104/67 03/09/24 117/73 02/18/24 133/62 Lab Results Component Value Date WBC 5.7 [...] & Antiplatelet medications Antibiotics No active infections RADIOLOGY No new imaging. Physical Exam: Vitals: Ht 170.2 cm (5' 7) Wt 61.2 kg (135 lb) BMI 21.14 kg/m?? - Gen: Alert and following commands, no acute distress - CV: pulses 2+ and equal - Skin: Intact skin, non-erythematous, no rashes or breakdown appreciated MSK At the BL wrist Inspection: No deformity No swelling around the wrist Alignment: no radial or ulnar deviation ROM: Full in all planes including flexion, extension, ulnar and median deviation. Strength: (R/L)- pain with all motions Extension: 5/5 Flexion: 5/5 Pronation: 5/5 Supination: 5/5 Palpation: DRUJ: ttp Ganglion: None appreciated Base of the thumb: ttp TFCC: ttp Special tests: DeQuervain Tenosynovitis Estelle: neg Diagnostic Ultrasound Pre-scan reveals no cystic changes between the pisiform and triquetrum. The patient did not have significant pain with palpation over this area. PROCEDURE Ultrasound guided injection. Procedure injection location: TFCC Side: Bilateral Indication: Pain and limited function Equipment: [place] with 4-20 MHz linear transducer, 4-12 MHz [...] specificity when evaluating effectiveness of this injection. Left The injection location was confirmed by a prescan of the area. Following this, the area was cleanedin the usual sterile fashion with chlorhexidine. Subsequently a 25g 1.5in needle was advanced to the target under direct ultrasound visualization using an out of-plane approach . Aspiration revealed no blood. The injection was performed with solution volumes as below. Lidocaine 1% 0.5 ml Triamcinolone 40 mg/ml 0.5ml The needle was removed. Hemostasis was achieved with direct pressure. There were no complications and the patient tolerated the procedure well. Post procedure instructions were provided. Right The injection location was confirmed by a prescan of the area. Following this, the area was cleanedin the usual sterile fashion with chlorhexidine. Subsequently a 25g 1.5in needle was advanced to the target under direct ultrasound visualization using an out of-plane approach. Aspiration revealed no blood. The injection was performed with solution volumes as below. Lidocaine 1% 0.5 ml Triamcinolone 40 mg/ml 0.5ml The needle was removed. Hemostasis was achieved with direct pressure. There were no complications and the patient tolerated the procedure well. Post procedure instructions were provided. ASSESSMENT & PLAN Impression: chronic bilateral wrist pain due to multiple issues, one being a small tear in the TFCC, where the patient is point tender in both her left and right wrist. We first evaluated the patient using ultrasound and palpating over the pisotriquetral joint to see if this reproduced the patient's pain however did not. She did have discomfort over the dorsal aspect of the hand at the distal intersection ofthe second and third dorsal compartments. The patient also has pain over her volar wrist but is getting worked up with neurology as this sounds more like light touch, which may be related to nerve hypersensitivity. Given the patient had the most pain over her TFCC, this is where we placed injectiontoday. Will follow-up to see how the patient is progressing. We encouraged her to continue exerciseand strengthening her wrist. Plan: - Therapeutic exercise: Continue PT exercises - Medications: No changes were made today.. Counseled regarding side effects and appropriate administration of medications as applicable. - Diagnostics: none - Injections: Discussed the risks of a potential soft tissue injection, including bleeding, infection, transient blood sugar elevation, skin depigmentation, and the possibility of weakening tissue over time. Ultrasound guided injection provided today to the TFCC - Medical Decision Making: Discussed surgical and [...] in the interim. Tarik Henry MD [employer] Pipe Covering SupervisorRestaurant Delivery Driver of Orthopedics [facility] The note was created using dictation, please excuse any grammatical or word errors. documented in this encounter Plan of Treatment Upcoming Encounters Date Type Department Care Team (Late st Contact Info) Description 08/07/2024 3:30 PM EST Office [place] [address] Tarik Henry MD [facility] [place] [address] 09/22/2024 7:00 AM EST Appointment Ultrasound at [place] [phone] Luis Michael Jr., MD [facility] [place] [address] 09/22/2024 8:00 AM EST Office [place] [address] Luis Michael Jr., MD [facility] [place] [address] documented as of this encounter Visit Diagnoses Diagnosis Bilateral wrist pain Pain in joint, forearm Injury of triangular fibrocartilage complex (TFCC) of left wrist, initial encounter TFCC (triangular fibrocartilage complex) injury, right, initial encounter documented in this encounter Administered Medications Inactive Administered Medications - up to 3 most recent administrations Medication Order MAR Action Action Date Dose Rate Site lidocaine (Xylocaine) 1% (10 mg/mL) injection 5 mg 5 mg, Intra-articular, ONCE, 1 dose, On Sat04/03/24 at 1415, Routine Given 04/03/2024 1:47 PM EDT 5 mg lidocaine (Xylocaine) 1% (10 mg/mL) injection 5 mg 5 mg, Intra-articular, ONCE, 1 dose, On Sat04/03/24 at 1415, Routine Given 04/03/2024 1:47 PM EDT 5 mg triamcinolone acetonide (Kenalog-40) (40 mg/mL) injection 20 mg 20 mg, Intra-articular, ONCE, 1 dose, On Sat04/03/24 at 1415, Routine Given 04/03/2024 1:47 PM EDT 20 mg triamcinolone acetonide (Kenalog-40) (40 mg/mL) injection 20 mg 20 mg, Intra-articular, ONCE, 1 dose, On Sat04/03/24 at 1415, Routine Given 04/03/2024 1:47 PM EDT 20 mg documented in this encounter Care Teams Pony Edger Relationship Specialty Start Date End Date David Lockhart PA [address] [place] [address] PCP - General Family Medicine 02/11/24 documented as of this encounter
--- OUTSIDE RECORDS SUMMARY | 2024-07-20 18:25 | XMS_ITS | Encounter Summary ---
Author Organization [facility] [place] [address] Care Team Providers Care Computer Graphic Designer Name Role Phone David Lockhart Primary Care Provider +1- [phone] Encounter Details Date Type Department Care Team (Latest Contact Info) Description 06/16/2024 2:35 PM EDT Laboratory Appointment Lab [address] [place] [address] Family history of malignant neoplasm of breast; Family history of malignant neoplasm of ovary Social History Tobacco Use Types Packs/Day Years Used Date Smoking Tobacco: Never Passive Smoke Exposure: Never Smokeless Tobacco: Never Alcohol Use Standard Drinks/Week Comments No 0 (1 standard drink = 0.6 oz pur e alcohol) [facility] Inpatient Questions Answer Date Recorded Does Anyone [...] 3:30 PM EST Office [place] [address] Tarik Henry MD [facility] [place] [address] 09/22/2024 7:00 AM EST Appointment Ultrasound at [place] [phone] uLis Michael Jr., MD [facility] [address] 09/22/2024 8:00 AM EST Office Visit Urology at [place] [phone] Luis Michael Jr., MD [facility] [place] [address] documented as of this encounter Visit Diagnoses Diagnosis Family history of malignant neoplasm of breast Family history of malignant neoplasm of ovary documented in this encounter Care Teams Computer Graphic Designer Relationship Specialty Start Date End Date David Lockhart PA [address] [place] [address] PCP - General Family Medicine 02/11/24 documented as of this encounter
--- OUTSIDE RECORDS SUMMARY | 2024-07-20 18:25 | XMS_ITS | Encounter Summary ---
Author Organization [facility] [place] [address] Care Team Providers Care Hadoop Software Engineer Name Role Phone David Lockhart Primary Care Provider +1- [phone] Encounter Details Date Type Department Care Team (Latest Contact Info) Description 04/29/2024 Travel Social History Tobacco Use Types Packs/Day [...] 3:30 PM EST Office Visit [place] [address] Tarik Henry MD [facility] [place] [address] 09/22/2024 7:00 AM EST Appointment [place] [address] Luis Michael Jr., MD [facility] [place] [address] 09/22/2024 8:00 AM EST Office Visit [place] [address] Luis Michael Jr., MD [facility] [place] [address] documented as of this encounter Visit Diagnoses Not on filedocumented in this encounter Care Teams Hadoop Software Engineer Relationship Specialty Start Date End Date David Lockhart PA [address] [place] [address] PCP - General Family Medicine 02/11/24 documented as of this encounter
--- OUTSIDE RECORDS SUMMARY | 2024-07-20 18:25 | XMS_ITS | Encounter Summary ---
Author Organization [facility] [place] [address] Care Team Providers Care Fur Stylist Name Role Phone David Lockhart Primary Care Provider +1- [phone] Encounter Details Date Type Department Care Team (Latest Contact Info) Description 02/18/2024 Travel Social History Tobacco Use Types Packs/Day [...] 3:30 PM EST Office [place] [address] Tarik Henry MD [facility] [place] [address] 09/22/2024 7:00 AM EST Appointment [place] [address] Luis Michael Jr., MD [facility] [place] [address] 09/22/2024 8:00 AM EST Office [place] [address] Luis Michael Jr., MD [facility] [place] [address] documented as of this encounter Visit Diagnoses Not on filedocumented in this encounter Care Teams Fur Stylist Relationship Specialty Start Date End Date David Lockhart PA [address] [place] [address] PCP - General Family Medicine 02/11/24 documented as of this encounter
--- OUTSIDE RECORDS SUMMARY | 2024-07-20 18:25 | XMS_ITS | Encounter Summary ---
[place] [address] Care Team Providers Care Knitting Inspector Name Role Phone David Lockhart Primary Care Provider +1- [phone] Reason for Referral * Diagnostic Test (Routine) - Authorized Specialty Diagnoses / Procedures Referred By Contac t Referred To Contact Radiology Diagnoses Primary osteoarthritis of both first carpometacarpal joints Procedures XR Fluoro Guided Joint Injection Small Left Image Guided MSK Joint/Tendon Injection/Aspiration (Generic) Milvia Yang PA [facility] [place] [address] Referral ID Status Reason Start Date Expiration Date Visits Requested Visits Authorized [id number] Authorized Specialty Service Requested 04/03/2024 10/04/2025 1 1 * Diagnostic Test (Routine) - Authorized Specialty Diagnoses / Procedures Referred By Contac t Referred To Contact Radiology Diagnoses Primary osteoarthritis of both first carpometacarpal joints Procedures XR Fluoro Guided Joint Injection Small Right Image Guided MSK Joint/Tendon Injection/Aspiration (Generic) Milvia Yang PA [facility] [place] [address] Referral ID Status Reason Start Date Expiration Date Visits Requested Visits Authorized [id number] Authorized Specialty Service Requested 04/03/2024 10/04/2025 1 1 Encounter Details Date Type Department Care Team (Late st Contact Info) Description 04/03/2024 Orders [place] [address] Milvia Yang PA [facility] [place] [address] Primary osteoarthritis of both first carpometacarpal joints Social History Tobacco Use Types Packs/Day Years Used Date Smoking Tobacco: Never Passive Smoke Exposure: Never Smokeless Tobacco: Never Alcohol Use Standard Drinks/Week Comments No 0 (1 standard drink = 0.6 oz pur e alcohol) [facility] Inpatient Questions Answer Date Recorded Does [...] 3:30 PM EST Office [place] [address] Tarik Henry MD [facility] [place] [address] 09/22/2024 7:00 AM EST Appointment [place] [address] Luis Michael Jr., MD [facility] [place] [address] 09/22/2024 8:00 AM EST Office [place] [address] Luis Michael Jr., MD [facility] [place] [address] Scheduled Orders Name Type Priority Associated Diagnoses Orde r Schedule XR Fluoro Guided Joint Injection Small Right Imaging Routine Primary osteoarthritis of both first carpometacarpal joints Expected: 04/25/2024, Expires: 10/25/2024 XR Fluoro Guided Joint Injection Small Left Imaging Routine Primary osteoarthritis of both first carpometacarpal joints Expected: 04/25/2024, Expires: 10/25/2024 documented as of this encounter Visit Diagnoses Diagnosis Primary osteoarthritis of both first carpometacarpal joints Primary localized osteoarthrosis, hand documented in this encounter Care Teams Knitting Inspector Relationship Specialty Start Date End Date David Lockhart PA [address] [place] [address] PCP - General Family Medicine 02/11/24 documented as of this encounter
--- OUTSIDE RECORDS SUMMARY | 2024-07-20 18:25 | XMS_ITS | Encounter Summary ---
Author Organization [facility] [place] [address] Care Team Providers Care Sewing Machines Salesperson Name Role Phone David Lockhart Primary Care Provider +1- [phone] Encounter Details Date Type Department Care Team (Late st Contact Info) Description 02/21/2024 Orders Only Obstetrics and [place]necology [place] [address] Rosita Riddle MD [facility] OBSTETRICS [place] [address] Social History Tobacco Use Types Packs/Day Years [...] 3:30 PM EST Office Visit Orthopaedics [place] [address] Tarik Henry MD [facility] [address] [place] [address] 09/22/2024 7:00 AM EST Appointment Ultrasound at [place] [phone] Luis Michael Jr., MD [facility] [place] [address] 09/22/2024 8:00 AM EST Office Visit Urology at [place] [phone] Luis Michael Jr., MD [facility] [place] [address] documented as of this encounter Visit Diagnoses Not on filedocumented in this encounter Care Teams Sewing Machines Salesperson Relationship Specialty Start Date End Date David Lockhart [address] [place] [address] PCP - General Family Medicine 02/11/24 documented as of this encounter
--- OUTSIDE RECORDS SUMMARY | 2024-07-20 18:25 | XMS_ITS | Encounter Summary ---
Author Organization [facility] [place] [address] Care Team Providers Care Production Underwriter Name Role Phone David Lockhart Primary Care Provider +1- [phone] Encounter Details Date Type Department Care Team (Late st Contact Info) Description 06/09/2024 2:00 PM EDT Office [place] [address] Tong Norman MD [facility] [place] [address] Post-COVID chronic dyspnea (Primary Dx); Vasomotor rhinitis Social History Tobacco Use Types [...] Mass Index 22.08 06/09/2024 2:11 PM EDT documented in this encounter Progress Notes * Tong Norman MD - 06/09/2024 2:00 PM EDT Images from the original note were not included. [facility] Section of Pulmonary and Critical Care Medicine Outpatient Follow-up Visit Date of Encounter: 06/09/2024 PCP: АЛЕКСАНДР Khan Reason for Evaluation: Ms. Stacy Albright [facility] [id number] office visit for [id number] symptoms. She was last seen 03/27/2023. I independently interviewed and examined the patient in the office and have reviewed available records. History of Present Illness: I was able to see Stacy [id number] in the office today. Since our lst visit more than a year ago her dyspnea on exertion has improved. She thinks the pulmonary rehabilitation was very help for this. She is using budesonide/formoterol (Symbicort) only on an as needed basis and that is infrequently.Not current needing montelukast (Singulair) either. She has had flu shot but does not want COVID booster. Presently recovering from hand and knee injury. She has also had multiple deaths in her family, butis managing with support of community. I reviewed medical, surgical family and social histories and updated the chart as indicated. Past Medical and Surgical History: Past Medical History: Diagnosis Date Abnormal [...] performed by Luis Michael Jr., MD at [facility] OSC PRO CYSTOSCOPY, INSERT URETERAL STENT Left 03/15/2023 CYSTO, STENT PLACEMENT (WRVU 2.82) performed by Luis Michael Jr., MD at [facility] OSC PRO CYSTOSCOPY, TX URETERAL STRICTURE Left 03/15/2023 CYSTOURETHROSCOPY, BALLOON DILATION OF URETERAL STRICTURE (WRVU 5.35) performed by Luis Michael Jr., MD at [facility] OSC PRO CYSTOURETHROSCOPY, FULGUR <.5CM LESN N/A 04/18/2017 CYSTO, FULGURATION\BLADDER LESION\W\WO BX\LESS THAN 0.5CM (WRVU 4.05) performed by Luis Michael Jr., MD at [facility] MAIN OR SHOULDER SURGERY Right 07/2019 XR FLUORO INJECTION DRAINAGE JOINT SM LEFT Left 09/12/2023 XR Fluoro Guided Joint Injection Small Left 09/12/2023 Aylin Ron PA [facility] RAD XRAY XR FLUORO INJECTION DRAINAGE JOINT SM LEFT Left 01/24/2024 XR Fluoro Guided Joint Injection Small Left 01/24/2024 Aylin Ron PA [facility] RAD XRAY XR FLUORO INJECTION DRAINAGE JOINT SM RIGHT Right 09/12/2023 XR Fluoro Guided Joint Injection Small Right 09/12/2023 Aylin Ron PA [facility] RAD XRAY XR FLUORO INJECTION DRAINAGE JOINT SM RIGHT Right 01/24/2024 XR Fluoro Guided Joint Injection Small Right 01/24/2024 Aylin Ron PA [facility] RAD XRAY Family History: Family History Problem (# of Occurrences) Relation (Name,Age of Onset) Depression (2) Mother, Father Cancer (1) Maternal Aunt: lymph node CA Breast Cancer (1) Paternal Grandmother (45) Ovarian Cancer (1) Mother Osteoporosis (1) Mother Negative family history of: Colorectal Cancer Social and Occupational History: Social History Socioeconomic History Marital status: Spouse name: None Number of children: None Years of education: None Highest education level: None Occupational History None Tobacco Use Smoking status: Never Passive exposure: Never Smokeless tobacco: Never Vaping Use Vaping status: Never Used Substance and Sexual Activity Alcohol use: No Drug use: No Sexual activity: Yes Partners: Male control/protection: Surgical Comment: vasectomy/04/2016 Mirena Other Topics Concern None Social History Narrative with 3 children. Lives in [place], [place]. 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 Eats relatively healthy with fruits, vegetables, yogurt, and milk; minimal meat. Eats 3 meals per day, does not drink tea or coffee, and occasionally drinks soda.Her youngest is 19 yrs old,in college in [place]. The other two are out of the [...] Present: no Housing Stability: Not on file Current Medications at Start of Encounter: Current Outpatient Medications Medication Instructions acyclovir (ZOVIRAX) 200 mg Capsule PRN albuterol (ACCUNEB) 0.63 mg/3 mL nebulizer solution Allergy Relief, fexofenadine, 180 mg Tablet SWALLOW 1 TABLET BY MOUTH WHOLE WITH WATER ONCE A DAY DO NOT TAKE WITH FRUIT JUICES azelastine (ASTELIN) 137 mcg (0.1 %) Aerosol, [place] PRN b complex vitamins Capsule 1 capsule, Oral, DAILY benzonatate (TESSALON) 100 mg, Oral, 3 TIMES DAILY PRN calcium carbonate/vitamin D3 (VITAMIN D-3 ORAL) Oral, DAILY estradioL (ESTRACE) 2 g, Vaginal, TWICE WEEKLY estradioL 0.1 mg/24 hr Patch Semiweekly APPLY 1 PATCH TO SKIN AND CHANGE TWICE A WEEK DIRECTED galantamine (RAZADYNE) 12 mg, 2 TIMES DAILY hydroCHLOROthiazide (MICROZIDE) 12.5 mg, Oral, 2 TIMES DAILY hydrocortisone (WESTCORT) 0.2 % Cream Topical (Top), PRN ipratropium (Atrovent) 21 mcg (0.03 %) nasal spray SPRAY 2 SPRAYS INTO EACH NSOTRIL TWO TIMES A DAY MAGNESIUM ORAL Oral, 2 caps QD memantine (NAMENDA) 5 mg, 2 TIMES DAILY montelukast (SINGULAIR) 10 mg, Oral, DAILY PRN multivitamin (THERAGRAN) tablet 1 tablet, DAILY ondansetron (ZOFRAN) 4 mg, Oral, EVERY 8 HOURS PRN ProChamber Spacer USE DIRECTED WITH INHALER sertraline (ZOLOFT) 100 mg, Oral, DAILY SUMAtriptan (IMITREX) 100 mg Tablet PRN Symbicort 160-4.5 mcg/actuation HFA Aerosol Inhaler Inhale 1 puff into the lungs 2 times daily. Mayalso inhale 1 puff every 4 hours as needed (Shortness of breath, cough or wheezing (up to 4 puffs total daily)). Adverse Drug Reactions: Allergies Allergen Reactions Animal Dander Escitalopram Other (See Comments) Grass Pollen-[place], Standard Other (See Comments) Runny nose, itching, sneezing Mold Extracts Other (See Comments) Sneezing and runny nose Physical Examination: BP 149/84 Pulse 68 Temp 35.9 ??C (96.6 ??F) (Temporal) Resp 16 Ht 170.2 cm (5' 7) Wt 64 kg (141 lb) SpO2 100% BMI 22.08 kg/m?? Physical Exam Constitutional: General: She is not in acute distress. Appearance: She is well-developed. Neck: Trachea: Phonation normal. Cardiovascular: Rate and Rhythm: Normal rate and regular rhythm. Heart sounds: Normal heart sounds. No murmur heard. Pulmonary: Effort: Pulmonary effort is normal. No accessory muscle usage or respiratory distress. Breath sounds: Normal breath sounds. No wheezing or rales. Neurological: Mental Status: She is alert. Labs: No new blood work is available for my review. Imaging: No new chest imaging. Previous imaging of the chest with normal parenchyma no evidence of interstitial lung disease or other concerning thoracic abnormalities. She had negative nuclear perfusion study in 2021. EKG from 12/14/2022: Normal sinus rhythm without ischemic changes. Pulmonary Function Tests: Date FVC FEV1 Ratio TLC RV RV/TLC ERV DLCO 6MWT 01/11/23 3.72 103% 2.78 99% 75% z=-0.59 -- -- -- -- --% z=-- -- -- 24.17 106% -- m Post -20 mL -1% +110 mL +4% RESTING ON ROOM AIR: SPO2= 98 HR= 70; AFTER 500 FT. WALK ON ROOM AIR: SPO2= 96 HR= 94 03/27/23 3.88 107% 2.76 98% 0.72 Z-1.00 22.61 99% Spirometry today was normal as was diffusion capacity. There is no significant changes between these numbers and prior testing in December 2022. Impression and Plan of Care: This is a middle-aged woman with persistent respiratory symptoms and hypoxemia following COVID-19 infection in November 2021. 1. Vasomotor rhinitis Okay to continue ipratropium (Atrovent). He PCP could order in the future is needed. - ipratropium (Atrovent) 21 mcg (0.03 %) nasal spray; 2 sprays by Nasal route 2 times daily. [place] into each nostril. Dispense: 30 mL; Refill: 11 2. Post-COVID chronic dyspnea Symptoms have improved and are now tolerable by her report. No further follow up needed. She does not have COPD despite documentation elsewhere in the chart. Follow up as needed if symptoms worsen or fail to improve. PCP can prescribe ipratropium (Atrovent). Tong Norman MD, PhD N [facility] PULMONOLOGY AT [facility] [address] Dept: [phone] Loc: [phone] documented in this encounter Plan of Treatment Upcoming Encounters Date Type Department Care Team (Late st Contact Info) Description 08/07/2024 3:30 PM EST Office [place] [address] Tarik Henry MD [facility] ORTHOPAED[place] [address] 09/22/2024 7:00 AM EST Appointment Ultrasound at [place] [phone] Luis Michael Jr., MD [facility] [place] [address] 09/22/2024 8:00 AM EST Office Visit Urology at [place] [phone] Luis Michael Jr., MD [facility] [place] [address] documented as of this encounter Visit Diagnoses Diagnosis Post-COVID chronic dyspnea- Primary Vasomotor rhinitis Allergic rhinitis, cause unspecified documented in this encounter Care Teams Production Underwriter Relationship Specialty Start Date End Date David Lockhart PA [address] [place] [address] PCP - General Family Medicine 02/11/24 documented as of this encounter
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
--- OUTSIDE RECORDS SUMMARY | 2024-07-20 18:25 | XMS_ITS | Encounter Summary ---
Author Organization [facility] [place] [address] Care Team Providers Care Training And Quality Manager Name Role Phone David Lockhart Primary Care Provider +1- [phone] Encounter Details Date Type Department Care Team (Latest Contact Info) Description 02/19/2024 Travel Social History Tobacco Use Types Packs/Day [...] 3:30 PM EST Office [place] [address] Tarik Henry MD [facility] [place] [address] 09/22/2024 7:00 AM EST Appointment [place] [address] Luis Michael Jr., MD [facility] [place] [address] 09/22/2024 8:00 AM EST Office [place] [address] Luis Michael Jr., MD [facility] [place] [address] documented as of this encounter Visit Diagnoses Not on filedocumented in this encounter Care Teams Training And Quality Manager Relationship Specialty Start Date End Date David Lockhart PA [address] [place] [address] PCP - General Family Medicine 02/11/24 documented as of this encounter
--- OUTSIDE RECORDS SUMMARY | 2024-07-20 18:25 | XMS_ITS | Encounter Summary ---
Author Organization Formerly [facility] [place] [address] Care Team Providers Care Emergency Department Aide Name Role Phone David Lockhart Primary Care Provider [phone]- [phone] Encounter Details Date Type Department Care Team (Latest Contact Info) Description 04/06/2024 Travel Social History Tobacco Use Types Packs/Day [...] Orthopaedics [place] [address] Tarik Henry MD [facility] [place] [address] 09/22/2024 7:00 AM EST Appointment Ultrasound [place] [address] Luis Michael Jr., MD [facility] [place] [address] 09/22/2024 8:00 AM EST Office Visit Urology [place] [address] Luis Michael Jr., MD [facility] [place] [address] documented as of this encounter Visit Diagnoses Not on filedocumented in this encounter Care Teams Emergency Department Aide Relationship Specialty Start Date End Date David Lockhart PA [address] [place] [address] PCP - General Family Medicine 02/11/24 documented as of this encounter
--- OUTSIDE RECORDS SUMMARY | 2024-07-20 18:25 | XMS_ITS | Encounter Summary ---
Author Organization [facility] [place] [address] Care Team Providers Care Pens And Pencils Dipper Name Role Phone David Lockhart Primary Care Provider [phone]- [phone] Encounter Details Date Type Department Care Team (Latest Contact Info) Description 04/03/2024 Travel Social History Tobacco Use Types Packs/Day [...] 3:30 PM EST Office [place] [address] Tarik Henry MD [facility] [place] [address] 09/22/2024 7:00 AM EST [place] [address] Luis Michael Jr., MD [facility] [place] [address] 09/22/2024 8:00 AM EST [place] [address] Luis Michael Jr., MD [facility] [place] [address] documented as of this encounter Visit Diagnoses Not on filedocumented in this encounter Care Teams Pens And Pencils Dipper Relationship Specialty Start Date End Date David Lockhart PA [address] [place] [address] PCP - General Family Medicine 02/11/24 documented as of this encounter
--- OUTSIDE RECORDS SUMMARY | 2024-07-20 18:25 | XMS_ITS | Encounter Summary ---
Author Organization [facility] Victor [place] [address] Care Team Providers Care Oil Sales And Service Rep Name Role Phone David Lockhart Primary Care Provider [phone]- [phone] Encounter Details Date Type Department Care Team (Latest Contact Info) Description 06/09/2024 Travel Social History Tobacco Use Types Packs/Day [...] 3:30 PM EST Office [place] [address] Tarik Henry MD [facility] [place] [address] 09/22/2024 7:00 AM EST Appoint[place] [address] Luis Michael Jr., MD [facility] [place] [address] 09/22/2024 8:00 AM EST Office [place] [address] Luis Michael Jr., MD [facility] [place] [address] documented as of this encounter Visit Diagnoses Not on filedocumented in this encounter Care Teams Oil Sales And Service Rep Relationship Specialty Start Date End Date David Lockhart PA [address] [place] [address] PCP - General Family Medicine 02/11/24 documented as of this encounter
--- OUTSIDE RECORDS SUMMARY | 2024-07-20 18:26 | XMS_ITS | Encounter Summary ---
Author Organization [facility] [place] [address] Care Team Providers Care Car Wash Supervisor Name Role Phone Janet Davey APRN Primary Care Provider Reason for Referral * Diagnostic Test (Routine) - Closed Specialty Diagnoses / Procedures Referred By Alberta t Referred To Contact Radiology Diagnoses Primary osteoarthritis of both first carpometacarpal joints Procedures XR Fluoro Guided Joint Injection Small Left Image Guided MSK Joint/Tendon Injection/Aspiration (Generic) Milvia Yang PA [facility] [place] [address] [facility] Rad Xray [address] [place] [address] [place] [address] Referral ID Status Reason Start Date Expiration Date V isits Requested Visits Authorized [id number] Closed Specialty Service Requested 10/24/2023 04/23/2025 1 1 Reason for Visit * Reason Comments Follow-up CONT'D BILAT WRIST/B ILAT THUMB PAIN Encounter Details Date Type Department Care Team (Latest Contact Info) Description 10/24/2023 4:00 PM EST Office Visit [place] [address] Milvia Yang PA [facility] [place] [address] Primary osteoarthritis of both first [...] - - Weight 61.2 kg (135 lb) 10/24/2023 3:42 PM EST Height 172.7 cm (5' 8) 10/24/2023 3:42 PM EST Body Mass Index 20.53 10/24/2023 3:42 PM EST documented in this encounter Progress Notes * Milvia Yang PA - 10/24/2023 4:00 PM EST Images from the original note were not included. PATIENT NAME: Stacy Albright AGE: 58 y.o. MR#: [id number] DATE OF VISIT: 10/24/2023 DATE OF INJURY/ONSET: several years CHIEF COMPLAINT: Bilateral wrist pain HISTORY OF PRESENT ILLNESS: Ms. Albright is a right hand dominant 58 y.o. female who comes into clinic today for evaluation of the bilateral wrists. The patient has a history significant for asthma, osteoporosis, COPD, depression. The patient reports bilateral wrist pain that began several years ago without inciting injury although she has been using her hands heavily given ailing family members. The pain is located over the left worse than right wrist, most notably at the basal joints and over the volar wrists. She has been to OT with some relief including kinesiotaping. She was prescribed PO Prednisone with transient relief by a walk in clinic. Interval HPI: She has not tried iontophoresis. She continues to with a therapist and has tried Voltaren and bracing with worsening. Medications and Allergies were reviewed in eD-H [...] performed by Luis Michael Jr., MD at [facility] OSC PRO CYSTOSCOPY, INSERT URETERAL STENT Left 03/15/2023 CYSTO, STENT PLACEMENT (WRVU 2.82) performed by Luis Michael Jr., MD at [facility] OSC PRO CYSTOSCOPY, TX URETERAL STRICTURE Left 03/15/2023 CYSTOURETHROSCOPY, BALLOON DILATION OF URETERAL STRICTURE (WRVU 5.35) performed by Luis Michael Jr., MD at [facility] OSC PRO CYSTOURETHROSCOPY, FULGUR <.5CM LESN N/A 04/18/2017 CYSTO, FULGURATION\BLADDER LESION\W\WO BX\LESS THAN 0.5CM (WRVU 4.05) performed by Luis Michael Jr., MD at [facility] MAIN OR SHOULDER SURGERY Right 07/2019 XR FLUORO INJECTION DRAINAGE JOINT SM LEFT Left 09/12/2023 XR Fluoro Guided Joint Injection Small Left 09/12/2023 Aylin Ron PA [facility] RAD XRAY XR FLUORO INJECTION DRAINAGE JOINT SM RIGHT Right 09/12/2023 XR Fluoro Guided Joint Injection Small Right 09/12/2023 Aylin Ron PA [facility] RAD XRAY FAMILY HX: Family History Problem Relation Age of Onset Osteoporosis Mother Depression Mother Breast Cancer Paternal Grandmother 45 Cancer Maternal Aunt lymph node CA Depression Father Colorectal Cancer Neg Hx Ovarian Cancer Neg Hx SOCIAL HX: Social History Occupational History Not on file Tobacco Use Smoking status: Never Passive exposure: Never Smokeless tobacco: Never Vaping Use Vaping Use: Never used Substance and Sexual Activity Alcohol use: No Drug use: No Sexual activity: Yes Partners: Male control/protection: Surgical Comment: vasectomy/04/2016 Mirena ROS: Constitutional: Denies fevers, chills Respiratory: Denies shortness of breath, cough Cardiac: Denies chest pain, palpitations GI: denies abdominal pain, nausea, vomiting Skin: Denies new rashes or lesions Neuro: no numbness Musculoskeletal: as above in HPI 10/19/2023 General Health, Prior Treatments, PreExisting Condition, Health Habits, About You PROMIS-10 General Health Good PROMIS-10 Quality of Life Good PROMIS-10 Physical Health Fair PROMIS-10 Mental Health Fair PROMIS-10 Social Activity Good PROMIS-10 Everyday Activities Moderately PROMIS-10 Pain 4 PROMIS-10 Fatigue Moderate PROMIS-10 Social Roles Good PROMIS-10 Anxious or Depressed Sometimes PROMIS PHYSICAL SCORE (range 16-68) 37.4 PROMIS MENTAL SCORE (range 21-68) 41.1 Treatments Tried Brace Physical therapy Oral natural supplements (e.g chondroitin and glucosamine) Over the counter anti-inflammatory drugs (e.g Advil, Aspirin, Aleve) Injection of steroids or cortisone Employment status before injury Currently working Spending time in inpatient rehab facility No Rate overall condition today 6 No data to display No data to [...] edema, ecchymosis, abrasions. Palpation: Tender to palpation diffusely over wrists, most notably over the first extensor compartment and basal joints bilaterally and volarly over the flexor tendons. ROM: Full finger and wrist range of motion. Orthopedic testing: Positive Estelle's test bilaterally. Neurovascular: SGILT R/M/U/Ax nerve distributions; AIN/PIN/U nerves fire; 2+ radial pulse ASSESSMENT: #1- Bilateral basal joint arthritis #2- Left worse than right de Quervain's tenosynovitis #3- Bilateral flexor tendinitis PLAN: -The patient was counseled that her volar wrist and forearm pain is most likely due to to flexor tendinitis for which I recommend conservative management with topical analgesia and a referral to handtherapy which was provided today. - The patient was counseled that they have DeQuervain's tenosynovitis and was offered both conservative and surgical management options including bracing, hand therapy referral including iontophoresis, 1st dorsal compartment steroid injection, and surgical 1st dorsal compartment release. After extensive discussion of the benefits and risks of each option, the patient would like to proceed with hand therapy with iontophoresis. - The patient was offered conservative management for their basal joint arthritis including night splinting, soft day bracing, topical pain relievers, and heat as well as intra-articular steroid injection. The patient was also advised that there are more invasive surgical options including arthroplasty. The benefits and risks of each were reviewed at length as well as all questions were answered.After extensive discussion, the patient would like to proceed with left basal joint steroid injection which was ordered today. - OT: Thumb spica splint fabrication for nocturnal use, stretching, modalities PRN including iontophoresis with Dexamethasone - She will return for follow up PRN - The patient understands to contact us if they have any other questions or concerns. Milvia Yang PA-C Department of Orthopaedics [facility] documented in this encounter Plan of Treatment Upcoming Encounters Date Type Department Care Team (Late st Contact Info) Description 08/07/2024 3:30 PM EST Office Visit [place] [address] Tarik Henry MD [facility] [place] [address] 09/22/2024 7:00 AM EST Appointment [place] [address] Luis Michael Jr., MD [facility] [address] 09/22/2024 8:00 AM EST Office Visit Urology at [facility] [place] [address] Luis Michael Jr., MD [facility] [place] [address] documented as of this encounter Results * XR Fluoro Guided Joint Injection Small Left (01/24/2024 11:14 AM EDT) Conversion Sound WORKSTATION ID [id number] RAD Anatomical Region Laterality Modality Left Radio Fluoroscop y Impressions 01/24/2024 11:51 AM EDT Technically successful left thumb carpometacarpal joint steroid injection under fluoroscopy. Service Provider: ??Aylin Ron PA-C Attending of Record: Dr. Romy Waller MD Preliminary report signed by: АЛЕКСАНДР Gauthier at 01/24/2024 11:20 AM I have personally reviewed the image(s) and the provider's interpretation and agree with the findings, Romy Waller MD at 01/24/2024 11:51 AM Thank you for letting us participate in the care of this patient. ??If you are a health care provider and have any questions regarding this report, please contact the number below. ??For patients who have questions please contact the health career technology teacher that requested your imaging first. ? Narrative 01/24/2024 11:51 AM EDT LEFT THUMB CARPOMETACARPAL JOINT STEROID INJECTION UNDER FLUOROSCOPY CLINICAL HISTORY: left basal joint arthritis (as entered by ordering provider in the order requisition) TECHNIQUE: After an extensive conversation with the patient regarding risks and benefits, including but not limited to: infection, bleeding, an allergic reaction to injected medications, steroid flare, and pain/discomfort due to the procedure, oral and written consent were obtained.?A pre- procedural time-out was performed, including review of the patient's relevant electronic medical record and allergies, as per [facility] protocol. The patient was placed supine on the fluoroscopic table. ??The skin over the dorsum of the left thumb carpometacarpal joint was prepped and draped in the usual sterile manner. 1% Lidocaine was used to achieve local anesthesia. Under fluoroscopic guidance, 25-gauge 1.5 inch needle was advanced into the joint space. ??A small amount of Omnipaque 300 was injected to document needle placement. ??A mixture of ropivacaine and methylprednisolone was then injected. All needles were removed at the end of the procedure. A dry sterile dressing was placed over the injection site. FINDINGS: 1. ??Small amount of injected Omnipaque 300 in the left thumb carpometacarpal joint space. 2. ??PAIN SCORE: ??Before: 5/10. ??After: 0/10. 3. Fluoroscopy time: 0.05 minutes. 4. Medications: ?Subcutaneous: ??Lidocaine 1% - <5 ml. ?Intra-articular: ??Ropivacaine HCL ??0.5% - 0.5 mL. ??Methylprednisolone - 40 mg. 5. Images: A needle tip projects along the ulnar margin of the left 1st carpal metacarpal joint. ??Contrast opacifies the joint space. ??There is expected dilution of contrast. COMPLICATIONS: ??None immediate. POST-PROCEDURE CARE: Information regarding monitor of infection, post- procedural pain and management of steroid flare were reviewed with and provided to the patient. Procedure Note Romy Waller MD - 01/24/2024 LEFT THUMB CARPOMETACARPAL JOINT STEROID INJECTION UNDER FLUOROSCOPY CLINICAL HISTORY: left basal joint arthritis (as entered by orderingprovider in the order requisition) TECHNIQUE: After an extensive conversation with the patient regardingrisks and benefits, including but not limited to: infection, bleeding, an allergic reaction to injected medications, steroid flare, and pain/discomfort dueto the procedure, oral and written consent were obtained.?A pre- proceduraltime-out was performed, including review of the patient's relevant electronicmedical record and allergies, as per [facility] protocol. The patient was placed supine on the fluoroscopic table. The skin overthe dorsum of the left thumb carpometacarpal joint was prepped and draped inthe usual sterile manner. 1% Lidocaine was used to achieve local anesthesia.Under fluoroscopic guidance, 25-gauge 1.5 inch needle was advanced into thejoint space. A small amount of Omnipaque 300 was injected to document needle placement. A mixture of ropivacaine and methylprednisolone was theninjected. All needles were removed at the end of the procedure. A dry steriledressing was placed over the injection site. FINDINGS: 1. Small amount of injected Omnipaque 300 in the left thumbcarpometacarpal joint space. 2. PAIN SCORE: Before: 5/10. After: 0/10. 3. Fluoroscopy time: 0.05 minutes. 4. Medications: Subcutaneous: Lidocaine 1% - <5 ml. Intra-articular: Ropivacaine HCL 0.5% - 0.5 mL. Methylprednisolone - 40 mg. 5. Images: A needle tip projects along the ulnar margin of the left 1stcarpal metacarpal joint. Contrast opacifies the joint space. There isexpected dilution of contrast. COMPLICATIONS: None immediate. POST-PROCEDURE CARE: Information regarding monitor of infection, post- procedural pain and management of steroid flare were reviewed with andprovided to the patient. IMPRESSION Technically successful left thumb carpometacarpal joint steroid injection under fluoroscopy. Service Provider: Aylin Ron PA-C Attending of Record: Dr. Romy Waller MD Preliminary report signed by: АЛЕКСАНДР Gauthier at 01/24/2024 11:20 AM I have personally reviewed the image(s) and the provider's interpretationand agree with the findings, Romy Waller MD at 01/24/2024 11:51 AM Thank you for letting us participate in the care of this patient. If youare a health care provider and have any questions regarding this report,please contact the number below. For patients who have questions please contactthe health career technology teacher that requested your imaging first. Vito Muñoz MD IMG FLUORO ORDERABLE S documented in this encounter Visit Diagnoses Diagnosis Primary osteoarthritis of both first carpometacarpal joints Primary localized osteoarthrosis, hand documented in this encounter Care Teams Car Wash Supervisor Relationship Specialty Start Date End Date Janet Davey, SACHA PCP - General Family Medicine 07/13/20 02/10/24 documented as of this encounter
--- OUTSIDE RECORDS SUMMARY | 2024-07-20 18:26 | XMS_ITS | Encounter Summary ---
Author Organization [facility]ly [facility] [place] [address] Care Team Providers Care Program Director/Air Personality Name Role Phone Janet Davey APRN Primary Care Provider [phone] Encounter Details Date Type Department Care Team (Latest Contact Info) Description 01/02/2024 Travel Social History Tobacco Use Types Packs/Day Years Used Date Smoking Tobacco: Never Passive Smoke Exposure: Never Smokeless Tobacco: Never Alcohol Use Standard Drinks/Week Comments No 0 (1 standard drink = 0.6 oz pur e alcohol) [facility] Inpatient Questions Answer Date Recorded Does [...] 3:30 PM EST Office [place] [address] Tarik Henry MD [facility] [place] [address] 09/22/2024 7:00 AM EST [place] [address] Luis Michael Jr., MD [facility] [place] [address] 09/22/2024 8:00 AM EST [place] [address] Luis Michael Jr., MD [facility] [place] [address] documented as of this encounter Visit Diagnoses Not on filedocumented in this encounter Care Teams Program Director/Air Personality Relationship Specialty Start Date End Date Janet Davye APRN PCP - General Family Medicine 07/13/20 02/10/24 documented as of this encounter
--- OUTSIDE RECORDS SUMMARY | 2024-07-20 18:26 | XMS_ITS | Encounter Summary ---
Author Organization [facility] [place] [address] Care Team Providers Care Enrollment Clerk Name Role Phone Janet Davey APRN Primary Care Provider [phone] Encounter Details Date Type Department Care Team (Latest Contact Info) Description 10/30/2023 Travel Social History Tobacco Use Types Packs/Day Years Used Date Smoking Tobacco: Never Passive Smoke Exposure: Never Smokeless Tobacco: Never Alcohol Use Standard Drinks/Week Comments No 0 (1 standard drink = 0.6 oz pur e alcohol) [facility] Inpatient Questions Answer Date Recorded [...] 3:30 PM EST [place] [address] Tarik Henry MD [facility] [place] [address] 09/22/2024 7:00 AM [place] [address] Luis Michael Jr., MD [facility] [address] 09/22/2024 8:00 AM EST [place] [address] Luis Michael Jr., MD [facility] [address] documented as of this encounter Visit Diagnoses Not on filedocumented in this encounter Care Teams Enrollment Clerk Relationship Specialty Start Date End Date Janet Davey APRN PCP - General Family Medicine 07/13/20 02/10/24 documented as of this encounter
--- OUTSIDE RECORDS SUMMARY | 2024-07-20 18:26 | XMS_ITS | Encounter Summary ---
[place] [address] Care Team Providers Care Pole Setter Name Role Phone Janet Davey APRN Primary Care Provider [phone] Encounter Details Date Type Department Care Team (Latest Contact Info) Description 10/30/2023 2:38 PM EST - 10/30/2023 11:59 PM [facility] Hospital Encounter Mammography/[place] [address] Osteoporosis, unspecified osteoporosis type, unspecified pathological fracture presence Discharge Disposition: Home Social History Tobacco Use Types Packs/Day Years Used Date Smoking Tobacco: Never Passive Smoke Exposure: Never Smokeless Tobacco: Never Alcohol Use Standard Drinks/Week Comments No 0 (1 standard drink = 0.6 oz pur e alcohol) [facility] Inpatient Questions Answer Date Recorded Does [...] 12 11/22/2022 Symbicort 160-4.5 mcg/actuation HFA Aerosol InhalerIndications:Un complicated asthma, unspecified asthma severity, unspecified whether persistent [...] azelastine (ASTELIN) 137 mcg (0.1 %) Aerosol, [place] as needed. 0 06/17/2017 SUMAtriptan (IMITREX) 100 mg Tablet as needed for Migraine. 1 04/13/2016 hydrocortisone (WESTCORT) 0.2 % Cream Apply topically as needed. 07/25/2015 multivitamin (THERAGRAN) tablet Take 1 tablet by mouth daily. montelukast (SINGULAIR) 10 mg tablet Take 10 mg by mouth daily as needed. 12/07/2010 albuterol (ACCUNEB) 0.63 mg/3 mL nebulizer solution 08/24/2010 ipratropium (ATROVENT) 21 mcg (0.03 %) [place], Non-AerosolIndication s:Vasomotor rhinitis SPRAY TWO SPRAYS INTO EACH NOSTRIL [...] a week. 8 patch 12 01/14/2023 03/11/2024 levonorgestreL (Mirena) 21 mcg/24 hours (8 yrs) 52 mg IUD 1 each by Intrauterine route Continuous (Device). Placed 05/01/16 02/18/2024 documented as of this encounter Plan of Treatment Upcoming Encounters Date Type Department Care Team (Late st Contact Info) Description 08/07/2024 3:30 PM EST Office Visit Orthopaedics at [place] [phone] Tarik Henry MD [facility] [place] [address] 09/22/2024 7:00 AM [place] [address] Luis Michael Jr., MD [facility] [place] [address] 09/22/2024 8:00 AM EST Office Visit Urology at [place] [phone] Luis Michael Jr., MD [facility] [place] [address] documented as of this encounter Procedures Procedure Name Priority Date/Time Associated Diagnosis Comments DXA CENTRAL SPINE, HIP, AND/OR WHOLE BODY (GENERIC) Routine 10/30/2023 3:23 PM EST Osteoporosis, unspecified osteoporosis type, unspecified pathological fracture presence documented in this encounter Results * DXA Central Spine, Hip, and/or Whole Body (Generic) (10/30/2023 3:23 PM EST) Anatomical Region Laterality Modality C-spine, Hip N/A Other Impressions 10/31/2023 12:51 PM EST Measurements meet WHO criteria for 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 Bone mineral density measurements are increased at the total hip by 4% over 1 year. DXA data sheets with BMD measurements and plots are available in E-Snipd under the imaging tab. Paper copies will be sent to providers without E-DH access. If you have received this report without the data sheet and do not have access to [facility], please contact Radiology Supervisor Painting Department at [phone] Saturday thru Saturday 8am-4pm. ? Bone Density Report ? Name: ?Stacy Albright Age: ? 58 Sex: ? Female Ethnicity: ? White Date of : 1965 Referring Provider: KADY HINOJOSA Study: Bone densitometry was performed. Model: Involvio (S/N [id number]) [employer] Software version 13.6.0.5 Exam Date: October 30, 2023 Accession number: [id number] Bone Density: Region ? BMD ?T-score ??Z-score ? AP Spine(L1-L4) ?0.963 ?? -0.8 ?0.7 ? Femoral Neck (Left) ?0.565 ?? -2.6 ? -1.3 ? Total Hip (Left) ? 0.700 ?? -2.0 ? -1.0 ? World Health Organization criteria for BMD impression classify patients as: Normal (T-score at or above -1.0), Osteopenia (T-score between -1.0 and -2.5), or Osteoporosis (T-score at or below -2.5). Previous Exams: Region ??Exam ? Age ??BMD ?? T-score ??BMD Change ? BMD Change ?Date ?g/cm2 ?vs Baseline ?vs Previous AP Spine (L1-L4) ? 10/30/2023 ??58 ??0.963 ?-0.8 ?? 0.001 (0.1%) ??0.024 (2.6%)* ? 10/10/2022 ??57 ??0.939 ?-1.0 ??-0.023 (-2.4%) -0.026 (-2.7%) ? 07/07/2020 ??54 ??0.965 ?-0.7 ?? 0.003 (0.3%) ??-0.029 (-2.9%) ? 06/27/2017 ??51 ??0.994 ?-0.5 ??0.032 (3.3%)* ??0.031 (3.2%)* ? 04/07/2015 ??49 ??0.963 ?-0.8 ?? 0.001 (0.1%) ??-0.012 (-1.3%) ? 02/16/2013 ??47 ??0.975 ?-0.7 ?? 0.013 (1.4%) ?? 0.013 (1.4%) ? 02/13/2011 ??45 ??0.962 ?-0.8 ? Total Hip(Left) ? 10/30/2023 ??58 ??0.700 ?-2.0 ??-0.022 (-3.0%) ??0.027 (4.0%) ? 10/10/2022 ??57 ??0.673 ?-2.2 ??-0.048 (-6.7%) -0.032 (-4.5%) ? 07/07/2020 ??54 ??0.705 ?-1.9 ??-0.017 (-2.3%) -0.004 (-0.6%) ? 06/27/2017 ??51 ??0.710 ?-1.9 ??-0.012 (-1.7%) -0.004 (-0.5%) ? 04/07/2015 ??49 ??0.714 ?-1.9 ??-0.008 (-1.1%) -0.009 (-1.3%) ? 02/16/2013 ??47 ??0.723 ?-1.8 ?? 0.001 (0.1%) ?? 0.001 (0.1%) ? 02/13/2011 ??45 ??0.722 ?-1.8 ? Thank you for letting us participate in the care of this patient. ??If you are a health care provider and have any questions regarding this report, please contact the number below. ??For patients who have questions please contact the health continuum of care manager that requested your imaging first. ? Narrative 10/31/2023 12:51 PM EST EXAMINATION: DXA CENTRAL SPINE, HIP, AND/OR WHOLE BODY (GENERIC) CLINICAL HISTORY: ??58 years Female Please repeat DXA, assess change on HRT, medically indicated (as entered by ordering provider) TECHNIQUE: Scans were acquired at the lumbar spine and left hip using the HoloYouScan A system. FINDINGS: Femoral neck BMD: 0.565 g/cm2 Lowest T-score at the diagnostic region of interest: T-score: -2.6, TENZIN: Femoral neck, WHO diagnosis: 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 ......... Comparison......... Previous scan: October 10, 2022 Baseline scan: February 13, 2011 Total spine: Compared to the previous, 0.024 ??g/cm2 (3 %) increase. Compared to the baseline, 0.001 g/cm2 (less than 1 %) increase. At [facility], least significant change for bone mineral density measurements at the spine region of interest: 0.031 g/cm2 Total hip: Compared to the previous, 0.027 ??g/cm2 (4 %) increase. Compared to the baseline, -0.022 g/cm2 (3 %) decrease. At [facility], least significant change for bone mineral density measurements at the left total hip region of interest: 0.025 g/cm2 Procedure Note Swapna Cedeño MD - 10/31/2023 EXAMINATION: DXA CENTRAL SPINE, HIP, AND/OR WHOLE BODY (GENERIC) CLINICAL HISTORY: 58 years Female Please repeat DXA, assess change onHRT, medically indicated (as entered by ordering provider) TECHNIQUE: Scans were acquired at the lumbar spine and left hip usingthe Agent Ace A system. FINDINGS: Femoral neck BMD: 0.565 g/cm2 Lowest T-score at the diagnostic region of interest: T-score: -2.6, [place]: Femoral neck, WHO diagnosis: 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 ......... Comparison......... Previous scan: October 10, 2022 Baseline scan: February 13, 2011 Total spine: Compared to the previous, 0.024 g/cm2 (3 %) increase. Compared to the baseline, 0.001 g/cm2 (less than 1 %) increase. At [facility], least significant change for bonemineral density measurements at the spine region of interest: 0.031 g/cm2 Total hip: Compared to the previous, 0.027 g/cm2 (4 %) increase. Compared to the baseline, -0.022 g/cm2 (3 %) decrease. At [facility], least significant change for bonemineral density measurements at the left total hip region of interest: 0.025g/cm2 IMPRESSION Measurements meet WHO criteria for 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 Bone mineral density measurements are increased at the total hip by 4%over 1 year. DXA data sheets with BMD measurements and plots are available in E-DHunder the imaging tab. Paper copies will be sent to providers without [employer]-Snipd access.If you have received this report without the data sheet and do not haveaccess to E-, please contact Radiology Supervisor Painting Department at [phone] Saturdayrid 8am-4pm. Bone Density Report Name: Stacy Albright Age: 58 Sex: Female Ethnicity: White Date of : 1965 Referring Provider: KADY HINOJOSA Study: Bone densitometry was performed. Model: [employer] A (S/N [id number]) SW version 13.6.0.5 Exam Date: October 30, 2023 Accession number: [id number] Bone Density: Region BMD T-score Z-score AP Spine(L1-L4) 0.963 -0.8 0.7 Femoral Neck (Left) 0.565 -2.6 -1.3 Total Hip (Left) 0.700 -2.0 -1.0 World Health Organization criteria for BMD impression classify patients as: Normal (T-score at or above -1.0), Osteopenia (T-score between -1.0 and -2.5), or Osteoporosis (T-score at or below -2.5). Previous Exams: Region Exam Age BMD T-score BMD Change BMD Change Date g/cm2 vs Baseline vs Previous AP Spine (L1-L4) 10/30/2023 58 0.963 -0.8 0.001 (0.1%) 0.024 (2.6%)* 10/10/2022 57 0.939 -1.0 -0.023 (-2.4%) -0.026 (-2.7%) 07/07/2020 54 0.965 -0.7 0.003 (0.3%) -0.029 (-2.9%) 06/27/2017 51 0.994 -0.5 0.032 (3.3%)* 0.031 (3.2%)* 04/07/2015 49 0.963 -0.8 0.001 (0.1%) -0.012 (-1.3%) 02/16/2013 47 0.975 -0.7 0.013 (1.4%) 0.013 (1.4%) 02/13/2011 45 0.962 -0.8 Total Hip(Left) 10/30/2023 58 0.700 -2.0 -0.022 (-3.0%) 0.027 (4.0%) 10/10/2022 57 0.673 -2.2 -0.048 (-6.7%) -0.032 (-4.5%) 07/07/2020 54 0.705 -1.9 -0.017 (-2.3%) -0.004 (-0.6%) 06/27/2017 51 0.710 -1.9 -0.012 (-1.7%) -0.004 (-0.5%) 04/07/2015 49 0.714 -1.9 -0.008 (-1.1%) -0.009 (-1.3%) 02/16/2013 47 0.723 -1.8 0.001 (0.1%) 0.001 (0.1%) 02/13/2011 45 0.722 -1.8 Thank you for letting us participate in the care of this patient. If youare a health care provider and have any questions regarding this report,please contact the number below. For patients who have questions please contactthe health continuum of care manager that requested your imaging first. Kady Hinojosa MD IMG DEXA ORDERABLES documented in this encounter Visit Diagnoses Diagnosis Osteoporosis, unspecified osteoporosis type, unspecified pathological fracture presence documented in this encounter Care Teams Pole Setter Relationship Specialty Start Date End Date Janet Davey APRN PCP - General Family Medicine 07/13/20 02/10/24 documented as of this encounter
--- OUTSIDE RECORDS SUMMARY | 2024-07-20 18:26 | XMS_ITS | Encounter Summary ---
Author Organization [facility] [place] [address] Care Team Providers Care Arboriculturist Name Role Phone David Lockhart Primary Care Provider [phone] Encounter Details Date Type Department Care Team (Latest Contact Info) Description 02/11/2024 10:31 AM EDT - 02/11/2024 11:59 PM EDT Hospital En[place] [address] Ferdinand Michael Jr., MD [facility] [place] [address] Nephrolithiasis Discharge Disposition: Home Social History Tobacco Use [...] azelastine (ASTELIN) 137 mcg (0.1 %) Aerosol, [place] as needed. 0 06/17/2017 SUMAtriptan (IMITREX) 100 mg Tablet as needed for Migraine. 1 04/13/2016 hydrocortisone (WESTCORT) 0.2 % Cream Apply topically as needed. 07/25/2015 multivitamin (THERAGRAN) tablet Take 1 tablet by mouth daily. montelukast (SINGULAIR) 10 mg tablet Take 10 mg by mouth daily as needed. 12/07/2010 albuterol (ACCUNEB) 0.63 mg/3 mL nebulizer solution 08/24/2010 ipratropium (ATROVENT) 21 mcg (0.03 %) [place], Non-AerosolIndication s:Vasomotor rhinitis SPRAY TWO SPRAYS INTO [...] 3:30 PM EST Office [place] [address] Tarik Henry MD [facility] [place] [address] 09/22/2024 7:00 AM EST Appoint[place] [phone] Ferdinand Michael Jr., MD [facility] [place] [address] 09/22/2024 8:00 AM EST Office [place] [phone] Ferdinand Michael Jr., MD [facility] [place] [address] documented as of this encounter Procedures Procedure Name Priority Date/Time Associated Diagnosis Comments US RETROPERITONEAL COMPLETE Routine 02/11/2024 10:47 AM EDT Nephrolithiasis documented in this encounter Results * US Retroperitoneal Complete (02/11/2024 10:47 AM EDT) WORKSTATION ID [id number] RAD Anatomical Region Laterality Modality Abdomen Ultrasound 02/11/2024 10:3 6 AM EDT Impressions 02/11/2024 11:47 AM EDT 1. Single nonobstructing left-sided stone in the lower pole, 5 mm. 2. Otherwise normal appearance of both kidneys. 3. No hydronephrosis. No hydroureter at the level of a distended bladder. Thank you for letting us participate in the care of this patient. If you are a health care provider and have any questions regarding this report, please contact the number above. For patients who have questions, please contact the health acute care registered nurse that requested your imaging first. ? Alban Cedeño, Physician Electronically Signed Final Report ?? 02/11/2024 11:47 am Narrative 02/11/2024 11:47 AM EDT Renal ? (Signed Final 02/11/2024 11:47 am) PATIENT INFO: ID #: ? [id number] ?: ??[birth year] (58 yrs)(F) Name: ? JESSICA GTZ ?Visit Date: 02/11/2024 10:36 am PERFORMED BY: Attending: ?Davidson GILL, Alban Resident: ? Romy Durand MD Performed By: ? Jessica Gaming RDMS Referred By: ?FERDINAND MICHAEL Location: ? [place] SERVICE(S) PROVIDED: URETRO - Retroperitoneal Complete - [id number] ? [id number] INDICATIONS: assess for stones COMPARISON: Ultrasound: 02/20/24 -------- HISTORY: -------- CYSTOURETHROSCOPY 03/15/23. RIGHT KIDNEY: Size (cm) ?L: ??9.4 Cortical Thickness: ?Normal Cortical Echogenicity: ?? Normal Hydronephrosis: ?No sonographic evidence LEFT KIDNEY: Size (cm) ?L: ??9.8 Cortical Thickness: ?Normal Cortical Echogenicity: ?? Normal Hydronephrosis: ?No sonographic evidence Comment: ?Inferior nonobstructing stone seen measurin.5 ? cm. URINARY BLADDER: Pre-void (cm) ? L: ??9.4 ? AP: ??6.2 ? TV: ??10.6 Vol (ml): ?323.5 Comment: ?Partially distended, normal contour. Procedure Note Alban Cedeño MD - 02/11/2024 Renal (Signed Final 02/11/2024 11:47 am) PATIENT INFO: ID #: [id number] : [birth year] (58 yrs)(F) Name: JESSICA GTZ Visit Date: 02/11/2024 10:36 am PERFORMED BY: Attending: Alban Cedeño MD Resident: Romy Durand MD Performed By: Jessica Gaming RDMS Referred By: FERDINAND MICHAEL JR Location: [place] SERVICE(S) PROVIDED: URETRO - Retroperitoneal Complete - [id number] INDICATIONS: assess for stones COMPARISON: Ultrasound: 02/20/24 -------- HISTORY: -------- CYSTOURETHROSCOPY 03/15/23. RIGHT KIDNEY: Size (cm) L: 9.4 Cortical Thickness: Normal Cortical Echogenicity: Normal Hydronephrosis: No sonographic evidence LEFT KIDNEY: Size (cm) L: 9.8 Cortical Thickness: Normal Cortical Echogenicity: Normal Hydronephrosis: No sonographic evidence Comment: Inferior nonobstructing stone seen measurin.5 cm. URINARY BLADDER: Pre-void (cm) L: 9.4 AP: 6.2 TV: 10.6 Vol (ml): 323.5 Comment: Partially distended, normal contour. IMPRESSION 1. Single nonobstructing left-sided stone in the lower pole, 5 mm. 2. Otherwise normal appearance of both kidneys. 3. No hydronephrosis. No hydroureter at the level of a distended bladder. Thank you for letting us participate in the care of this patient. If you are a health care provider and have any questions regarding this report, please contact the number above. For patients who have questions, please contact the health acute care registered nurse that requested your imaging first. Alban Cedeño, Physician Electronically Signed Final Report 02/11/2024 11:47 am Ferdinand Michael Jr., MD [facility] GEN ORDERAB LES documented in this encounter Visit Diagnoses Diagnosis Nephrolithiasis Calculus of kidney documented in this encounter Care Teams Arboriculturist Relationship Specialty Start Date End Date David Lockhart PA [address] [place] [address] PCP - General Family Medicine 02/11/24 documented as of this encounter
--- OUTSIDE RECORDS SUMMARY | 2024-07-20 18:26 | XMS_ITS | Encounter Summary ---
Author Organization [facility] [place] [address] Care Team Providers Care Conductor Freight Name Role Phone Janet Davey APRN Primary Care Provider [phone] Encounter Details Date Type Department Care Team (Latest Contact Info) Description 01/17/2024 Travel Social History Tobacco Use Types Packs/Day Years Used Date Smoking Tobacco: Never Passive Smoke Exposure: Never Smokeless Tobacco: Never Alcohol Use Standard Drinks/Week Comments No 0 (1 standard drink = 0.6 oz pur e alcohol) [facility] Inpatient Questions Answer Date Recorded Does Anyone [...] 3:30 PM EST Office [place] [address] Tarik Henry MD [facility] DR [place] [address] 09/22/2024 7:00 AM EST [place] [address] Luis Michael Jr., MD [facility] [place] [address] 09/22/2024 8:00 AM EST [place] [address] Luis Michael Jr., MD [facility] [place] [address] documented as of this encounter Visit Diagnoses Not on filedocumented in this encounter Care Teams Conductor Freight Relationship Specialty Start Date End Date Janet Davey APRN PCP - General Family Medicine 07/13/20 02/10/24 documented as of this encounter
--- OUTSIDE RECORDS SUMMARY | 2024-07-20 18:26 | XMS_ITS | Encounter Summary ---
Author Organization [facility] [place] [address] Care Team Providers Care Pulp Cooker Name Role Phone Janet Davey APRN Primary Care Provider [phone] Reason for Visit * Reason Comments Nephrolithiasis Encounter Details Date Type Department Care Team (Late st Contact Info) Description 10/02/2023 8:30 AM EST Office [place] [address] Ferdinand Michael Jr., MD [facility] [place] [address] Nephrolithiasis Social History Tobacco Use Types Packs/Day Years Used Date Smoking Tobacco: Never Passive Smoke Exposure: Never Smokeless Tobacco: Never Alcohol Use Standard Drinks/Week Comments No 0 (1 standard drink = 0.6 oz pur e alcohol) [facility] Inpatient Questions Answer Date Recorded Does Anyone [...] Sign Reading Time Taken Comments Blood Pressure 113/69 10/02/2023 8:10 AM EST Pulse 66 10/02/2023 8:10 AM EST Temperature - - Respiratory Rate - - Oxygen Saturation - - Inhaled Oxygen Concentration - - Weight - - Height - - Body Mass Index - - documented in this encounter Progress Notes * Ferdinand Michael Jr., MD - 10/02/2023 8:30 AM EST Images from the original note were not included. HPI: Jessica Gtz is a 58 y.o. woman who returns [...] 24h urine and she returns to review 10/01/2023 10:00 AM REVIEW OF SYSTEMS Ear / nose / throat / mouth Other symptoms with ears, nose, throat, mouth Gastrointestinal Nausea, vomiting PMHx: migraines, GERD, urolithiasis, osteoporosis PSurgHx: SWL, left ureteroscopy, multiple orthopedic surgeries. FamHx: no history of urolithiasis SocHx: no tobacco history; no alcohol use She reports her approximately 2 months ago. She cares for her grandchild. Her parents have both this past year DietHx: 3-4 liters fluid intake/day; low sodium intake; moderate purine/animal protein intake; moderate oxalate intake; moderate dairy intake . Physical Exam Vitals reviewed. Constitutional: General: She is not in acute distress. Appearance: She is not toxic-appearing or diaphoretic. Cardiovascular: Rate and Rhythm: Normal rate. Pulmonary: Effort: No respiratory distress. ' Latest Reference Range & Units 11/13/22 15:06 Sodium 135 - 145 mmol/L 138 Potassium 3.5 - 5.0 mmol/L 3.5 Chloride 98 - 107 mmol/L 100 CO2 22 - 31 mmol/L 28 Anion Gap 5 - 15 mmol/L 10 BUN 8 - 18 mg/dL 12 Creatinine 0.70 - 1.20 mg/dL 0.87 Estimated GFR >=60 mL/min/1.73 m?? 77 Calcium 8.5 - 10.5 mg/dL 9.4 Stone Analysis: 70% Calcium phosphate (apatite). 20% Calcium oxalate dihydrate. 10% Calcium oxalatemonohydrate. Imaging studies: I had ordered renal ultrasound for today, but this has not yet been scheduled. Impression/Plan: History of calcium phosphate nephrolithiasis, currently asymptomatic. 1) Low urine volume. We discussed the need to increase daily oral hydration to maintain at least 2-2.5 liters urine output each day. We discussed that urine supersaturations (calcium oxalate and calcium phosphate) are mildly elevated on the 24 hour urine and this can be improved by simply increasing the total daily urine volume. Thus, will plan to increase fluid hydration and will reassess on follow up 24 hour urine in approximately 3 months. 2) mild hypercalciuria (without prior hypercalcemia). She continues HCTZ 12.5mg daily, with improvement in 24-hour urinary calcium on updated 24-hour urine. Will reevaluate on plan follow-up 24-hour urine. Prior BMP showed no evidence of hypercalcemia; will repeat BMP at next visit. 3) Mixed CaPhos/CaOx stone. We reviewed general dietary modifications for those with calcium stones. We discussed the role of a low sodium diet with increased hydration, targeting 2.5 liters urine output daily. documented in this encounter Plan of Treatment Upcoming Encounters Date Type Department Care Team (Late st Contact Info) Description 08/07/2024 3:30 PM EST Office Visit Orthopaedics at [place] [phone] Tarik Henry MD [facility] DR OR[place]OP[place] [address] 09/22/2024 7:00 AM EST Appointment Ultrasound at [place] [phone] Ferdinand Michael Jr., MD [facility] [place] [address] 09/22/2024 8:00 AM EST Office [place] [address] Ferdinand Michael Jr., MD [facility] [place] [address] documented as of this encounter Results * US Retroperitoneal Complete (02/11/2024 10:47 AM EDT) WORKSTATION ID [id number] RAD Anatomical Region Laterality Modality Abdomen Ultrasound [...] who have questions, please contact the health memory care program director that requested your imaging first. ? Alban Cedeño, Physician Electronically Signed Final Report ?? 02/11/2024 11:47 am Narrative 02/11/2024 11:47 AM EDT Renal ? (Signed Final 02/11/2024 11:47 am) PATIENT INFO: ID #: ? [id number] ?: ??[birth year] (58 yrs)(F) Name: ? JESSICA GTZ ?Visit Date: 02/11/2024 10:36 am PERFORMED BY: Attending: ?Davidson GILL, Alban Resident: ? Romy Durand MD Performed By: ? Jessica Gaming RDMS Referred By: ?FERDINAND MICHAEL Location: ? [facility] PROVIDED: URETRO - Retroperitoneal Complete - [id number] ? [id number] INDICATIONS: assess for stones COMPARISON: Ultrasound: 02/20/24 [...] 02/11/2024 11:47 am) PATIENT INFO: ID #: [id number] : [birth year] (58 yrs)(F) Name: JESSICA GTZ Visit Date: 02/11/2024 10:36 am PERFORMED BY: Attending: Alban Cedeño MD Resident: Romy Durand MD Performed By: Jessica Gaming RDMS Referred By: FERDINAND MICHALE JR Location: [facility] PROVIDED: URETRO - Retroperitoneal Complete - [id number] INDICATIONS: assess for stones COMPARISON: Ultrasound: 02/20/24 [...] who have questions, please contact the health memory care program director that requested your imaging first. Alban Cedeño, Physician Electronically Signed Final Report 02/11/2024 11:47 am Ferdinand Michael Jr., MD [facility] GEN ORDERAB LES * (ABNORMAL) Basic Metabolic Panel (non-fasting) (02/11/2024 10:20 AM EDT) Glucose 55(L) 65 - 199 mg/dL [facility] Comment:Diabetes: >=200 mg/d L plus symptoms Blood Urea Nitrogen 15 8 - 18 mg/dL [facility] Creatinine 0.88 0.70 - 1.20 mg/dL [facility] Sodium 141 135 - 145 mmol/L [facility] Potassium 3.9 3.5 - 5.0 mmol/L [facility] Comment: Please note: ??Patients with WBC >100,000 may have falsely elevated Potassium levels. ??For accurate Potassium quantification in these patients send serum separator tube (gold top) for subsequent determinations. ??Contact the Clinical Chemistry Laboratory if there are any questions. Chloride 103 98 - 107 mmol/L [facility] Carbon Dioxide 28 22 - 31 mmol/L [facility] Anion Gap 10 5 - 15 mmol/L [facility] Calcium 9.7 8.5 - 10.5 mg/dL [facility] Est Glomerular Filtration Rate 75 >=60 mL/min/1. 73 m?? [facility] Comment: This patient's estimated GFR [...] Narrative Resulting Agency Comment Spec In Lab Ferdinand Michael Jr., MD CHEMISTRY ORDERABL ES [facility] [place] [address] documented in this encounter Visit Diagnoses Diagnosis Nephrolithiasis Calculus of kidney Nephrolithiasis Calculus of kidney documented in this encounter Care Teams Pulp Cooker Relationship Specialty Start Date End Date Janet Davey APRN PCP - General Family Medicine 07/13/20 02/10/24 documented as of this encounter
--- OUTSIDE RECORDS SUMMARY | 2024-07-20 18:26 | XMS_ITS | Encounter Summary ---
Author Organization [facility] [place] [address] Care Team Providers Care Home Mortgage Disclosure Act Specialist Name Role Phone Janet Davey APRN Primary Care Provider [phone] Encounter Details Date Type Department Care Team (Latest Contact Info) Description 10/02/2023 Travel Social History Tobacco Use Types Packs/Day Years Used Date Smoking Tobacco: Never Passive Smoke Exposure: Never Smokeless Tobacco: Never Alcohol Use Standard Drinks/Week Comments No 0 (1 standard drink = 0.6 oz pur e alcohol) [facility] Inpatient Questions Answer Date Recorded Does [...] 3:30 PM EST Office [place] [address] Tarik Henry MD [facility] [place] [address] 09/22/2024 7:00 AM EST Appointment [place] [address] Luis Michael Jr., MD [facility] [place] [address] 09/22/2024 8:00 AM EST Office [place] [address] Luis Michael Jr., MD [facility] [place] [address] documented as of this encounter Visit Diagnoses Not on filedocumented in this encounter Care Teams Home Mortgage Disclosure Act Specialist Relationship Specialty Start Date End Date Janet Davey APRN PCP - General Family Medicine 07/13/20 02/10/24 documented as of this encounter
--- OUTSIDE RECORDS SUMMARY | 2024-07-20 18:26 | XMS_ITS | Encounter Summary ---
Author Organization [facility] [place] [address] Care Team Providers Care Corporate Affairs Manager Name Role Phone Janet Davey APRN Primary Care Provider [phone] Encounter Details Date Type Department Care Team (Late st Contact Info) Description 10/24/2023 [place] [phone] Aylin Ron PA [facility] [place] [address] Social History Tobacco Use Types Packs/Day Years Used Date Smoking Tobacco: Never Passive Smoke Exposure: Never Smokeless Tobacco: Never Alcohol Use Standard Drinks/Week Comments No 0 (1 standard drink = 0.6 oz pur e alcohol) [facility] Inpatient Questions Answer Date Recorded [...] 3:30 PM EST [place] [address] Tarik Henry MD [facility] [place] [address] 09/22/2024 7:00 AM [place] [address] Luis Michael Jr., MD [facility] [place] [address] 09/22/2024 8:00 AM EST Office Visit Urology at [place] [phone] Luis Michael Jr., MD [facility] [place] [address] documented as of this encounter Visit Diagnoses Not on filedocumented in this encounter Care Teams Corporate Affairs Manager Relationship Specialty Start Date End Date Janet Davey APRN PCP - General Family Medicine 07/13/20 02/10/24 documented as of this encounter
--- OUTSIDE RECORDS SUMMARY | 2024-07-20 18:26 | XMS_ITS | Encounter Summary ---
Author Organization [facility] [place] [address] Care Team Providers Care Dehydrogenation Operator Name Role Phone Janet Davey SACHA Primary Care Provider [phone] Reason for Referral * Diagnostic Test (Routine) - Closed Specialty Diagnoses / Procedures Referred By Contac t Referred To Contact Radiology Diagnoses Primary osteoarthritis of both first carpometacarpal joints Procedures XR Fluoro Guided Joint Injection Small Left Milvia Yang PA [facility] [place] [address] [facility] Rad Xray [address] [place] [address] [place] [address] Referral ID Status Reason Start Date Expiration Date V isits Requested Visits Authorized [id number] Closed Specialty Service Requested 09/02/2023 03/02/2025 1 1 * Diagnostic Test (Routine) - Closed Specialty Diagnoses / Procedures Referred By Contac t Referred To Contact Radiology Diagnoses Primary osteoarthritis of both first carpometacarpal joints Procedures XR Fluoro Guided Joint Injection Small Right Milvia Yang PA [facility] [place] [address] [facility] Rad Xray [address] [place] [address] [place] [address] Referral ID Status Reason Start Date Expiration Date V isits Requested Visits Authorized [id number] Closed Specialty Service Requested 09/02/2023 03/02/2025 1 1 * Occupational Therapy (Routine) - Closed Specialty Diagnoses / Procedures Referred By Alberta mendosa Referred To Contact Occupational Therapy Diagnoses Bilateral wrist pain Primary osteoarthritis of both first carpometacarpal joints De Quervain's tenosynovitis Milvia Yang PA [facility] [place] [address] Unknown None Referral ID Status Reason Start Date Expiration Date V isits Requested Visits Authorized [id number] Closed Evaluate and Treat Non PCP 08/30/2023 02/26/2024 12 12 Reason for Visit * Reason Comments Bilateral Wrist Pain * Consultation (Routine) - Closed Specialty Diagnoses / Procedures Referred By Alberta mendosa Referred To Contact Orthopaedics Diagnoses Left wrist pain Pain in right wrist Janet Davey, GAMMA RAY OPERATOR [address] [place] [address] [facility] [address] [place] [id number] Referral ID Status Reason Start Date Expiration Date V isits Requested Visits Authorized [id number] Closed Consult, Test & Treat PCP Updated and/or Approved 08/07/2023 08/06/2024 1 1 Encounter Details Date Type Department Care Team (Latest Contact Info) Description 08/30/2023 2:00 PM EST Office [place] [phone] Milvia Yang PA [facility] [place] [address] Bilateral wrist pain; Primary osteoarthritis of both first carpometacarpal joints; De Quervain's tenosynovitis Social History Tobacco Use Types Packs/Day Years [...] - - Weight 65.3 kg (144 lb) 08/30/2023 1:50 PM EST Height 170.2 cm (5' 7) 08/30/2023 1:50 PM EST Body Mass Index 22.55 08/30/2023 1:50 PM EST documented in this encounter Progress Notes * Milvia Yang PA - 08/30/2023 2:00 PM EST Images from the original note were not included. PATIENT NAME: Stacy Albright AGE: 58 y.o. MR#: [id number] DATE OF VISIT: 08/30/2023 DATE OF INJURY/ONSET: several years CHIEF COMPLAINT: [...] PO Prednisone with transient relief by a walker in clinic. Medications and Allergies were reviewed in eD-H [...] performed by Luis Michael Jr., MD at [facility] OSC PRO CYSTOSCOPY, INSERT URETERAL STENT Left 03/15/2023 CYSTO, STENT PLACEMENT (WRVU 2.82) performed by Luis Michael Jr., MD at [facility] OSC PRO CYSTOSCOPY, TX URETERAL STRICTURE Left 03/15/2023 CYSTOURETHROSCOPY, BALLOON DILATION OF URETERAL STRICTURE (WRVU 5.35) performed by Luis Michael Jr., MD at [facility] OSC PRO CYSTOURETHROSCOPY, FULGUR <.5CM LESN N/A 04/18/2017 CYSTO, FULGURATION\BLADDER LESION\W\WO BX\LESS THAN 0.5CM (WRVU 4.05) performed by Luis Michael Jr., MD at [facility] MAIN OR SHOULDER SURGERY Right 07/2019 FAMILY HX: Family History Problem Relation Age [...] no numbness Musculoskeletal: as above in HPI 08/26/2023 General Health, Prior Treatments, PreExisting Condition, Health Habits, About You PROMIS-10 General Health Good PROMIS-10 Quality of Life Good PROMIS-10 Physical Health Good PROMIS-10 Mental Health Good PROMIS-10 Social Activity Good PROMIS-10 Everyday Activities Mostly PROMIS-10 Pain 4 PROMIS-10 Fatigue Severe PROMIS-10 Social Roles Very Good PROMIS-10 Anxious or Depressed Rarely PROMIS PHYSICAL SCORE (range 16-68) 39.8 PROMIS MENTAL SCORE (range 21-68) 45.8 Treatments Tried Heat and ice therapy Brace Physical therapy Medicines applied on the skin (topical) Acetaminophen (e.g. Tylenol) Over the counter anti-inflammatory drugs (e.g Advil, Aspirin, Aleve) Prescribed anti-inflammatory drugs Prior Surgery No, overuse Alzheimers or dementia No Cirrohosis or liver disease No HIV/AIDS No Pain in more than one joint in legs No Back or neck pain No Heart attack No Heart failure No Unclog/bypass leg arteries No Stroke, blood clot, TIA No Asthma Yes Take medication for asthma Yes Emphysema, chronic bronchities, or COPD No Stomach ulcers/peptic ulcer disease No Diabetes No Poor kidney function No Rheumatic condtions No Cancer No Weight (lbs) 135 Height (feet) 5 feet Height (Inches) 8 BMI 20.52 (Normal) Ever used tobacco products No Ever used alcoholic beverages Yes Alcohol frequency Never WHO - Alcohol Advice 0 (You are at low risk of health and other problems from your current pattern of use.) Live Alone No Marital situation Schooling High school graduate or GED Combined Household Income $20,000 to less than $25,000 # People Supported 2 Canadian, , No, not Canadian// Race White Health Literacy Extremely Currently working Yes Current job situation Full-time Employment status before injury Currently working Spending [...] the first extensor compartment and basal joints bilaterally. ROM: Full finger and wrist range of motion. Orthopedic testing: Positive Estelle's test bilaterally. Neurovascular: SGILT R/M/U/Ax nerve distributions; AIN/PIN/U nerves fire; 2+ radial pulse DIAGNOSTIC STUDIES: Bilateral wrist XR were personally reviewed and demonstrate mild to moderate bilateral basal joint DJD. ASSESSMENT: #1- Bilateral basal joint arthritis #2- [...] the patient would like to proceed with splinting and modalities including iontophoresis with Dexamethasone. - The patient was offered conservative management [...] the patient would like to proceed with topical analgesia, heat, soft bracing and fluoroscopy guided corticosteroid injection. - OT: Thumb spica splint fabrication for nocturnal use, stretching, modalities PRN including iontophoresis with Dexamethasone - She will return for follow up PRN. - The patient understands to contact us if they have any other questions or concerns. Milvia Yang PA-C Department of Orthopaedics [facility] documented in this encounter Plan of Treatment Upcoming Encounters Date Type Department Care Team (Late st Contact Info) Description 08/07/2024 3:30 PM EST Office Visit Orthopaedics at [place] [phone] Tarik Henry MD [facility] DR [place] [address] 09/22/2024 7:00 AM EST Appointment [place] [address] Luis Michael Jr., MD [facility] [place] [address] 09/22/2024 8:00 AM EST [place] [address] Luis Michael Jr., MD [facility] [place] [address] Scheduled Referrals Name Type Priority Associated Diagnoses Orde r Schedule Referral to Occupational Therapy Outpatient Referral Routine Bilateral wrist pain Primary osteoarthritis of both first carpometacarpal joints De Quervain's tenosynovitis Ordered: 08/30/2023 documented as of this encounter Results * XR Fluoro Guided Joint Injection Small Left (09/12/2023 4:06 PM EST) Anatomical Region Laterality Modality Left Radio Fluoroscop y Impressions 09/12/2023 5:15 PM EST Technically successful left thumb carpometacarpal joint injection under fluoroscopy. Service Provider: ??Aylin Ron PA-C Attending of Record: Dr. Lisbeth Horan MD Preliminary report signed by: АЛЕКСАНДР Gauthier at 09/12/2023 4:17 PM I have personally reviewed the image(s) and the provider's interpretation and agree with the findings, Lisbeth Horan MD at 09/12/2023 5:15 PM Thank you for letting us participate in the care of this patient. ??If you are a health care provider and have any questions regarding this report, please contact the number below. ??For patients who have questions please contact the health behavioral health care manager that requested your imaging first. ? Electronically signed by: Lisbeth Horan MD, [facility] ([phone]), at 09/12/2023 5:15 PM Narrative 09/12/2023 5:15 PM EST LEFT THUMB CARPOMETACARPAL JOINT INJECTION UNDER FLUOROSCOPY CLINICAL HISTORY: left basal joint arthritis TECHNIQUE: After an extensive conversation with the patient regarding risks and benefits, including but not limited to: infection, bleeding, an allergic reaction to injected medications, steroid flare, and pain/discomfort due to the procedure, oral and written consent were obtained.?A pre- procedural time-out was performed, including review of the patient's relevant electronic medical record and allergies, as per [facility] protocol. The patient was placed supine on [...] carpometacarpal joint space. 2. ??PAIN SCORE: ??Before: 12/03. ??After: 10/05. 3. Fluoroscopy time: 0.10 minutes. 4. Medications: ?Subcutaneous: ??Lidocaine 1% - <5 ml. ?Intra-articular: ??Ropivacaine HCL ??0.5% - 0.5 mL. ??Methylprednisolone - 40 mg. 5. Images: 4 COMPLICATIONS: ??None immediate. POST-PROCEDURE CARE: Information regarding monitor of infection, post- procedural pain and management of steroid flare were reviewed with and provided to the patient. Procedure Note Lisbeth Horan MD - 09/12/2023 LEFT THUMB CARPOMETACARPAL JOINT INJECTION UNDER FLUOROSCOPY CLINICAL HISTORY: left basal joint arthritis TECHNIQUE: After an extensive conversation with the patient regardingrisks and benefits, including but not limited to: infection, bleeding, an allergic reaction to injected medications, steroid flare, and pain/discomfort dueto the procedure, oral and written consent were obtained.?A pre- proceduraltime-out was performed, including review of the patient's relevant electronicmedical record and allergies, as per [facility] protocol. The patient was placed supine on [...] thumbcarpometacarpal joint space. 2. PAIN SCORE: Before: 4/10. After: 2/10. 3. Fluoroscopy time: 0.10 minutes. 4. Medications: Subcutaneous: Lidocaine 1% - <5 ml. Intra-articular: Ropivacaine HCL 0.5% - 0.5 mL. Methylprednisolone - 40 mg. 5. Images: 4 COMPLICATIONS: None immediate. POST-PROCEDURE CARE: Information regarding monitor of infection, post- procedural pain and management of steroid flare were reviewed with andprovided to the patient. IMPRESSION Technically successful left thumb carpometacarpal joint injection under fluoroscopy. Service Provider: Aylin Ron PA-C Attending of Record: Dr. Lisbeth Horan MD Preliminary report signed by: АЛЕКСАНДР Gauthier at 09/12/2023 4:17 PM I have personally reviewed the image(s) and the provider's interpretationand agree with the findings, Lisbeth Horan MD at 09/12/2023 5:15 PM Thank you for letting us participate in the care of this patient. If youare a health care provider and have any questions regarding this report,please contact the number below. For patients who have questions please contactthe health behavioral health care manager that requested your imaging first. Electronically signed by: Lisbeth Horan MD, [facility]([phone]), at 09/12/2023 5:15 PM Vito Muñoz MD IMG FLUORO ORDERABLE S * XR Fluoro Guided Joint Injection Small Right (09/12/2023 4:06 PM EST) Anatomical Region Laterality Modality Right Radio Fluoroscop y Impressions 09/12/2023 5:15 PM EST Technically successful right thumb carpometacarpal joint injection under fluoroscopy. Service Provider: ??Aylin Ron PA-C Attending of Record: Dr. Lisbeth Horan MD Preliminary report signed by: АЛЕКСАНДР Gautheir at 09/12/2023 4:18 PM I have personally reviewed the image(s) and the provider's interpretation and agree with the findings, Lisbeth Horan MD at 09/12/2023 5:15 PM Thank you for letting us participate in the care of this patient. ??If you are a health care provider and have any questions regarding this report, please contact the number below. ??For patients who have questions please contact the health behavioral health care manager that requested your imaging first. ? Electronically signed by: Lisbeth Horan MD, [facility] ([phone]), at 09/12/2023 5:15 PM Narrative 09/12/2023 5:15 PM EST RIGHT THUMB CARPOMETACARPAL JOINT INJECTION UNDER FLUOROSCOPY CLINICAL HISTORY: right basal joint arthritis TECHNIQUE: After an extensive conversation with the patient regarding risks and benefits, including but not limited to: infection, bleeding, an allergic reaction to injected medications, steroid flare, and pain/discomfort due to the procedure, oral and written consent were obtained.?A pre- procedural time-out was performed, including review of the patient's relevant electronic medical record and allergies, as per [facility] protocol. The patient was placed supine on the fluoroscopic table. ??The skin over the dorsum of the right thumb carpometacarpal joint was prepped and draped [...] amount of injected Omnipaque 300 in the right thumb carpometacarpal joint space. 2. ??PAIN SCORE: ??Before: 12/03. ??After: 10/05. 3. Fluoroscopy time: 0.12 minutes. 4. Medications: ?Subcutaneous: ??Lidocaine 1% - <5 ml. ?Intra-articular: ? Ropivacaine HCL ??0.5% - 0.5 mL. ??Methylprednisolone - 40 mg. 5. Images: 4 COMPLICATIONS: ??None immediate. POST-PROCEDURE CARE: Information regarding monitor of infection, post- procedural pain and management of steroid flare were reviewed with and provided to the patient. Procedure Note Lisbeth Horan MD - 09/12/2023 RIGHT THUMB CARPOMETACARPAL JOINT INJECTION UNDER FLUOROSCOPY CLINICAL HISTORY: right basal joint arthritis TECHNIQUE: After an extensive conversation with the patient regardingrisks and benefits, including but not limited to: infection, bleeding, an allergic reaction to injected medications, steroid flare, and pain/discomfort dueto the procedure, oral and written consent were obtained.?A pre- proceduraltime-out was performed, including review of the patient's relevant electronicmedical record and allergies, as per [facility] protocol. The patient was placed supine on the fluoroscopic table. The skin overthe dorsum of the right thumb carpometacarpal joint was prepped and draped [...] amount of injected Omnipaque 300 in the right thumbcarpometacarpal joint space. 2. PAIN SCORE: Before: 4/10. After: 2/10. 3. Fluoroscopy time: 0.12 minutes. 4. Medications: Subcutaneous: Lidocaine 1% - <5 ml. Intra-articular: Ropivacaine HCL 0.5% - 0.5 mL. Methylprednisolone - 40 mg. 5. Images: 4 COMPLICATIONS: None immediate. POST-PROCEDURE CARE: Information regarding monitor of infection, post- procedural pain and management of steroid flare were reviewed with andprovided to the patient. IMPRESSION Technically successful right thumb carpometacarpal joint injection under fluoroscopy. Service Provider: Aylin Ron PA-C Attending of Record: Dr. Lisbeth Horan MD Preliminary report signed by: АЛЕКСАНДР Gauthier at 09/12/2023 4:18 PM I have personally reviewed the image(s) and the provider's interpretationand agree with the findings, Lisbeth Horan MD at 09/12/2023 5:15 PM Thank you for letting us participate in the care of this patient. If youare a health care provider and have any questions regarding this report,please contact the number below. For patients who have questions please contactthe health behavioral health care manager that requested your imaging first. Electronically signed by: Lisbeth Horan MD, [facility]([phone]), at 09/12/2023 5:15 PM Vito Muñoz MD IMG FLUORO ORDERABLE S * XR Wrist 3 Views Bilateral (08/30/2023 2:14 PM EST) Anatomical Region Laterality Modality Wrist Bilateral Digital Radiogra phy Impressions 08/30/2023 3:03 PM EST No acute fracture or periostitis Normal osseous alignment. Thank you for letting us participate in the care of this patient. ??If you are a health care provider and have any questions regarding this report, please contact the number below. ??For patients who have questions please contact the health behavioral health care manager that requested your imaging first. ? Electronically signed by: Simin Preston MD, [facility] ([phone]), at 08/30/2023 3:03 PM Narrative 08/30/2023 3:03 PM EST EXAMINATION: XR WRIST 3 VIEWS BILATERAL CLINICAL HISTORY: bilateral wrist pain, , entered by ordering service TECHNIQUE: Bilateral wrists, 3 views each side COMPARISON: none FINDINGS: Bones No acute fracture or periostitis. Joints Radiocarpal and distal radioulnar joint-congruent. Normal scapholunate interval. Soft Tissue No chondrocalcinosis. No soft tissue air or foreign body detected. Procedure Note Simin Preston MD - 08/30/2023 EXAMINATION: XR WRIST 3 VIEWS BILATERAL CLINICAL HISTORY: bilateral wrist pain, , entered by ordering service TECHNIQUE: Bilateral wrists, 3 views each side COMPARISON: none FINDINGS: Bones No acute fracture or periostitis. Joints Radiocarpal and distal radioulnar joint-congruent. Normal scapholunateinterval. Soft Tissue No chondrocalcinosis. No soft tissue air or foreign body detected. IMPRESSION No acute fracture or periostitis Normal osseous alignment. Thank you for letting us participate in the care of this patient. If youare a health care provider and have any questions regarding this report,please contact the number below. For patients who have questions please contactthe health behavioral health care manager that requested your imaging first. Vito Muñoz MD IMG DX ORDERABLES documented in this encounter Visit Diagnoses Diagnosis Bilateral wrist pain Pain in joint, forearm Primary osteoarthritis of both first carpometacarpal joints Primary localized osteoarthrosis, hand De Quervain's tenosynovitis Radial styloid tenosynovitis Bilateral wrist pain Pain in joint, forearm Primary osteoarthritis of both first carpometacarpal joints Primary localized osteoarthrosis, hand documented in this encounter Care Teams Dehydrogenation Operator Relationship Specialty Start Date End Date Janet Davey APRN PCP - General Family Medicine 07/13/20 02/10/24 documented as of this encounter
--- OUTSIDE RECORDS SUMMARY | 2024-07-20 18:26 | XMS_ITS | Encounter Summary ---
Author Organization [facility] Address [facility] [place] [address] Care Team Providers Care Civil Rights Attorney Name Role Phone Janet Davey Isa GONCALVES Primary Care Provider [phone] Encounter Details Date Type Department Care Team (Latest Contact Info) Description 08/30/2023 2:00 PM EST - 08/30/2023 11:59 PM [facility] Encounter XRay at [address] [place] [address] Bilateral wrist pain Discharge Disposition: Home Social History Tobacco Use [...] azelastine (ASTELIN) 137 mcg (0.1 %) Aerosol, Climax as needed. 0 06/17/2017 SUMAtriptan (IMITREX) 100 mg Tablet as needed for Migraine. 1 04/13/2016 hydrocortisone (WESTCORT) 0.2 % Cream Apply topically as needed. 07/25/2015 multivitamin (THERAGRAN) tablet Take 1 tablet by mouth daily. montelukast (SINGULAIR) 10 mg tablet Take 10 mg by mouth daily as needed. 12/07/2010 albuterol (ACCUNEB) 0.63 mg/3 mL nebulizer solution 08/24/2010 hydroCHLOROthiazide (Microzide) 12.5 mg capsule TAKE ONE CAPSULE BY MOUTH EVERY DAY 90 capsule 07/04/2023 03/09/2024 tamsulosin (Flomax) 0.4 mg capsule Take 1 capsule by mouth daily. 90 tablet 03/15/2023 02/19/2024 estradioL 0.1 mg/24 hr Patch Semiweekly Change 1 patch on the skin twice a week. 8 patch 12 01/14/2023 03/11/2024 hydrOXYzine (Atarax) 25 mg tablet daily. 11/15/2022 10/02/2023 levonorgestreL (Mirena) 21 mcg/24 hours (8 yrs) 52 mg IUD 1 each by Intrauterine route Continuous (Device). Placed 05/01/16 02/18/2024 ipratropium (ATROVENT) 21 mcg (0.03 %) Climax, Non-AerosolIndication s:Vasomotor rhinitis 2 sprays by Nasal route 2 times daily. 30 mL 5 07/25/2022 09/16/2023 documented as of this encounter Plan of Treatment Upcoming Encounters Date Type Department Care Team (Late st Contact Info) Description 08/07/2024 3:30 PM EST Office Visit Orthopaedics at [place] [phone] Tarik Henry MD [facility] [place] [address] 09/22/2024 7:00 AM EST Appointment [place] [phone] Luis Michael Jr., MD [facility] [place] [address] 09/22/2024 8:00 AM EST Office [place] [phone] Luis Michael Jr., MD [facility] [place] [address] documented as of this encounter Procedures Procedure Name Priority Date/Time Associated Diagnosis Comments XR WRIST 3 VIEWS BILATERAL Routine 08/30/2023 2:14 PM EST Bilateral wrist pain documented in this encounter Results * XR Wrist 3 Views Bilateral (08/30/2023 [...] who have questions please contact the health resident caregiver that requested your imaging first. ? Narrative 08/30/2023 3:03 PM EST EXAMINATION: XR [...] patients who have questions please contactthe health resident caregiver that requested your imaging first. Vito Muñoz MD IMG DX ORDERABLES documented in this encounter Visit Diagnoses Diagnosis Bilateral wrist pain Pain in joint, forearm documented in this encounter Care Teams Civil Rights Attorney Relationship Specialty Start Date End Date Janet Davey APRN PCP - General Family Medicine 07/13/20 02/10/24 documented as of this encounter
--- OUTSIDE RECORDS SUMMARY | 2024-07-20 18:26 | XMS_ITS | Encounter Summary ---
Author Organization [facility] [place] [address] Care Team Providers Care Mold Yard Supervisor Name Role Phone Janet Davey SACHA Primary Care Provider [phone] Reason for Referral * Diagnostic Test (Routine) - Closed Specialty Diagnoses / Procedures Referred By Contac t Referred To Contact Radiology Diagnoses Primary osteoarthritis of both first carpometacarpal joints Procedures XR Fluoro Guided Joint Injection Small Left Milvia Yang PA [facility] [place] [address] [facility] Rad Xray [address] [place] [address] [place] [address] Referral ID Status Reason Start Date Expiration Date V isits Requested Visits Authorized [id number] Closed Specialty Service Requested 09/02/2023 03/02/2025 1 1 * Diagnostic Test (Routine) - Closed Specialty Diagnoses / Procedures Referred By Contac t Referred To Contact Radiology Diagnoses Primary osteoarthritis of both first carpometacarpal joints Procedures XR Fluoro Guided Joint Injection Small Right Milvia Yang PA [facility] [place] [address] [facility] Rad Xray [address] [place] [address] [place] [address] Referral ID Status Reason Start Date Expiration Date V isits Requested Visits Authorized [id number] Closed Specialty Service Requested 09/02/2023 03/02/2025 1 1 Reason for Visit * Diagnostic Test (Routine) - Closed Specialty Diagnoses / Procedures Referred By Alberta t Referred To Contact Radiology Diagnoses Primary osteoarthritis of both first carpometacarpal joints Procedures XR Fluoro Guided Joint Injection Small Right Milvia Yang PA [facility] [place] [address] [facility] Rad Xray [address] [place] [address] [place] [address] Referral ID Status Reason Start Date Expiration Date V isits Requested Visits Authorized [id number] Closed Specialty Service Requested 09/02/2023 03/02/2025 1 1 Encounter Details Date Type Department Care Team (Latest Contact Info) Description 09/12/2023 3:25 PM EST - 09/12/2023 11:59 PM EST Hospital Encounter XRay at [address] [place] [address] Vito Muñoz MD [facility] [place] [address] Primary osteoarthritis of both first carpometacarpal joints Discharge Disposition: Home Social History Tobacco Use Types Packs/Day Years Used Date Smoking Tobacco: Never Passive Smoke Exposure: Never Smokeless Tobacco: Never Alcohol Use Standard Drinks/Week Comments No 0 (1 standard drink = 0.6 oz pur e alcohol) [facility] Inpatient Questions Answer Date Recorded Does [...] AM EDT documented as of this encounter Discharge Instructions * Patient Instructions* Deepti Chang 09/12/2023 3:49 PM EST Post Injection Patient Instructions You received an injection by AYLIN RON in the diagnostic section of radiology. Procedure: THUMB INJECTIONS In the days following the injection: Low intensity movement and exercise of the affected joint. Avoid movements that worsen pain. No submersion of the injection site in water for 48 hours (pool/carrero/hot tub, etc.), but you may shower as usual. Keep the injection site dry, clean and covered for 48 hours. If the dressing falls off, you may replace it with a Band-aid. During the first 48 hours following the injection you may experience mild discomfort at the injection site. If you experience pain or discomfort in the affected area, do the following: Apply cold compress to the affected area. No submersion of joint in water for 48-72 hours however showering is okay. If allowed by your physician, take an anti-inflammatory medication such as ibuprofen (example: Advil), Acetaminophen (example: Tylenol) or Aspirin. IMPORTANT The risk of infection exists whenever the skin is punctured. The risk can be minimized by keeping the injection site clean. However, be aware of the following signs of an infection: Redness and swelling at the injection site. Increased pain. Fever and/or chills. Decreased range of motion in the joint near the injection site. When to call the Radiology Department: Please call with any questions or concerns. If it is during regular office hours, please call [phone]. If it is after regular office hours, or on weekends or holidays, please call [phone] and ask to speak to the Technical Operator garden consultant. Revised on 09/18/22 documented in this encounter Medications at Time [...] azelastine (ASTELIN) 137 mcg (0.1 %) Aerosol, [place] as needed. 0 06/17/2017 SUMAtriptan (IMITREX) 100 [...] 02/18/2024 ipratropium (ATROVENT) 21 mcg (0.03 %) [place], Non-AerosolIndication s:Vasomotor rhinitis 2 sprays by Nasal route 2 times daily. 30 mL 5 07/25/2022 09/16/2023 documented as of this encounter Plan of Treatment Upcoming Encounters Date Type Department Care Team (Late st Contact Info) Description 08/07/2024 3:30 PM EST Office Visit Orthopaedics at [place] [phone] Tarik Henry MD [facility] [place] [address] 09/22/2024 7:00 AM EST [place] [address] Luis Michael Jr., MD [facility] [place] [address] 09/22/2024 8:00 AM EST [place] [phone] Luis Michael Jr., MD [facility] [place] [address] documented as of this encounter Procedures Procedure Name Priority Date/Time Associated Diagnosis Comments XR FLUORO INJECTION DRAINAGE JOINT SM RIGHT Routine 09/12/2023 4:06 PM EST Primary osteoarthritis of both first carpometacarpal joints XR FLUORO INJECTION DRAINAGE JOINT SM LEFT Routine 09/12/2023 4:06 PM EST Primary osteoarthritis of both first carpometacarpal joints documented in this encounter Results * XR Fluoro Guided [...] who have questions please contact the health healthcare customer service that requested your imaging first. ? Electronically signed by: Lisbeth Horan MD, [facility] ([phone]), at 09/12/2023 5:15 PM Narrative 09/12/2023 5:15 [...] electronic medical record and allergies, as per [facility] protocol. The patient was placed supine on [...] relevant electronicmedical record and allergies, as per [facility] protocol. The patient was placed supine on [...] patients who have questions please contactthe health healthcare customer service that requested your imaging first. Electronically signed by: Lisbeth Horan MD, [facility]([phone]), at 09/12/2023 5:15 PM Vito Muñoz MD [...] who have questions please contact the health healthcare customer service that requested your imaging first. ? Electronically signed by: Lisbeth Horan MD, [facility] ([phone]), at 09/12/2023 5:15 PM Narrative 09/12/2023 5:15 [...] electronic medical record and allergies, as per [facility] protocol. The patient was placed supine on [...] relevant electronicmedical record and allergies, as per [facility] protocol. The patient was placed supine on [...] patients who have questions please contactthe health healthcare customer service that requested your imaging first. Electronically signed by: Lisbeth Horan MD, [facility]([phone]), at 09/12/2023 5:15 PM Vito Muñoz MD IMG FLUORO ORDERABLE S documented in this encounter Visit Diagnoses Diagnosis Primary osteoarthritis of both first carpometacarpal joints Primary localized osteoarthrosis, hand documented in this encounter Administered Medications Inactive Administered Medications - up to 3 most recent administrations Medication Order MAR Action Action Date Dose Rate Site iohexoL (Omnipaque) (300 mg/mL) solution 0-10 mL 0-10 mL, Intra-articular, ONCE, 1 dose, On Shanta 09/12/23 at 1615, Warning Vesicant/Irritant Medication , Radiology Contrast, Routine Given 09/12/2023 4:15 PM EST 1 mL iohexoL (Omnipaque) (300 mg/mL) solution 0-10 mL 0-10 mL, Intra-articular, ONCE, 1 dose, On Shanta 09/12/23 at 1615, Warning Vesicant/Irritant Medication , Radiology Contrast, Routine Given 09/12/2023 4:15 PM EST 1 mL lidocaine (Xylocaine) 1% (10 mg/mL) injection 0-100 mg 0-100 mg (0-10 mL), Intra-articular, ONCE, 1 dose, On Shanta 09/12/23 at 1615, Radiology Protocol Medication, Routine Given 09/12/2023 4:15 PM EST 3 mg lidocaine (Xylocaine) 1% (10 mg/mL) injection 0-100 mg 0-100 mg (0-10 mL), Intra-articular, ONCE, 1 dose, On Shanta 09/12/23 at 1615, Radiology Protocol Medication, Routine Given 09/12/2023 4:15 PM EST 3 mg methylPREDNISolone acetate (DEPO-Medrol) (40 mg/mL) injection 0-160 mg 0-160 mg, Intra-articular, ONCE, 1 dose, On Shanta 09/12/23 at 1615, Radiology Protocol Medication, Routine Given 09/12/2023 4:15 PM EST 40 mg methylPREDNISolone acetate (DEPO-Medrol) (40 mg/mL) injection 0-160 mg 0-160 mg, Intra-articular, ONCE, 1 dose, On Shanta 09/12/23 at 1615, Radiology Protocol Medication, Routine Given 09/12/2023 4:15 PM EST 40 mg ROpivacaine (PF) (Naropin) 0.5% (5 mg/mL) injection 0-50 mg 0-50 mg (0-10 mL), Intra-articular, ONCE, 1 dose, On Shanta 09/12/23 at 1615, Radiology Protocol Medication, Routine Given 09/12/2023 4:15 PM EST 0.5 mg ROpivacaine (PF) (Naropin) 0.5% (5 mg/mL) injection 0-50 mg 0-50 mg (0-10 mL), Intra-articular, ONCE, 1 dose, On Shanta 09/12/23 at 1615, Radiology Protocol Medication, Routine Given 09/12/2023 4:15 PM EST 0.5 mg documented in this encounter Care Teams Mold Yard Supervisor Relationship Specialty Start Date End Date Janet Davey APRN PCP - General Family Medicine 07/13/20 02/10/24 documented as of this encounter
--- OUTSIDE RECORDS SUMMARY | 2024-07-20 18:26 | XMS_ITS | Encounter Summary ---
Author Organization [facility] [place] [address] Care Team Providers Care Physician Assistant Certified Name Role Phone Janet Davey APRN Primary Care Provider [phone] Encounter Details Date Type Department Care Team (Late st Contact Info) Description 11/21/2023 Orders [place] [phone] Aylin Ron PA [facility] [place] [address] Social History Tobacco Use Types Packs/Day Years Used Date Smoking Tobacco: Never Passive Smoke Exposure: Never Smokeless Tobacco: Never Alcohol Use Standard Drinks/Week Comments No 0 (1 standard drink = 0.6 oz pur e alcohol) [facility] Inpatient Questions Answer Date Recorded [...] 3:30 PM EST Office [place] [address] Tarik Henry MD [facility] [place] [address] 09/22/2024 7:00 AM [place] [address] Luis Michael Jr., MD [facility] [place] [address] 09/22/2024 8:00 AM EST Office Visit Urology at [place] [phone] Luis Michael Jr., MD [facility] [address] documented as of this encounter Visit Diagnoses Not on filedocumented in this encounter Care Teams Physician Assistant Certified Relationship Specialty Start Date End Date Janet Davey APRN PCP - General Family Medicine 07/13/20 02/10/24 documented as of this encounter
--- OUTSIDE RECORDS SUMMARY | 2024-07-20 18:26 | XMS_ITS | Encounter Summary ---
Author Organization [facility] [place] [address] Care Team Providers Care Cat Tender Name Role Phone Janet Davey APRN Primary Care Provider [phone] Encounter Details Date Type Department Care Team (Late st Contact Info) Description 08/30/2023 [place] [phone] Aylin Ron PA [facility] [place] [address] Social History Tobacco Use Types Packs/Day Years Used Date Smoking Tobacco: Never Passive Smoke Exposure: Never Smokeless Tobacco: Never Alcohol Use Standard Drinks/Week Comments No 0 (1 standard drink = 0.6 oz pur e alcohol) [facility] Inpatient Questions Answer Date Recorded Does Anyone [...] 3:30 PM EST Office [place] [address] Tarik Henry MD [facility] [place] [address] 09/22/2024 7:00 AM EST [place] [address] Luis Michael Jr., MD [facility] [place] [address] 09/22/2024 8:00 AM EST Office Visit Urology at [place] [phone] Luis Michael Jr., MD [facility] [place] [address] documented as of this encounter Visit Diagnoses Not on filedocumented in this encounter Care Teams Cat Tender Relationship Specialty Start Date End Date Janet Davey APRN PCP - General Family Medicine 07/13/20 02/10/24 documented as of this encounter
--- OUTSIDE RECORDS SUMMARY | 2024-07-20 18:26 | XMS_ITS | Encounter Summary ---
Author Organization [facility] [place] [address] Care Team Providers Care Jewelry Setter Name Role Phone Janet Davey APRN Primary Care Provider [phone] Encounter Details Date Type Department Care Team (Latest Contact Info) Description 11/01/2023 Travel Social History Tobacco Use Types Packs/Day Years Used Date Smoking Tobacco: Never Passive Smoke Exposure: Never Smokeless Tobacco: Never Alcohol Use Standard Drinks/Week Comments No 0 (1 standard drink = 0.6 oz pur e alcohol) [facility] Inpatient Questions Answer Date Recorded [...] 3:30 PM EST Office [place] [address] Tarik Henry MD [facility] [place] [address] 09/22/2024 7:00 AM EST [place] [address] Luis Michael Jr., MD [facility] [place] [address] 09/22/2024 8:00 AM EST [place] [address] Luis Michael Jr., MD [facility] [place] [address] documented as of this encounter Visit Diagnoses Not on filedocumented in this encounter Care Teams Jewelry Setter Relationship Specialty Start Date End Date Janet Davey APRN PCP - General Family Medicine 07/13/20 02/10/24 documented as of this encounter
--- OUTSIDE RECORDS SUMMARY | 2024-07-20 18:26 | XMS_ITS | Encounter Summary ---
[place] [address] Care Team Providers Care Housekeeping Manager Name Role Phone EdJanet mendez Isa GONCALVES Primary Care Provider [phone] Reason for Referral * Consultation (Priority 1) - Closed Specialty Diagnoses / Procedures Referred By Alberta t Referred To Contact Genetics Diagnoses Family history of ovarian cancer Reyna Fernandez APRN [facility] DR OBSTETRICS AND [place] [address] [facility] Hem [address]c [address] [place] [address] Referral ID Status Reason Start Date Expiration Date V isits Requested Visits Authorized [id number] Closed Consult, Test & Treat 12/17/2023 12/16/2024 1 1 Encounter Details Date Type Department Care Team (Late st Contact Info) Description 12/17/2023 Telephone Obstetrics [place] [address] Sydney Silva, RN Social History Tobacco Use Types Packs/Day Years Used Date Smoking Tobacco: Never Passive Smoke Exposure: Never Smokeless Tobacco: Never Alcohol Use Standard Drinks/Week Comments No 0 (1 standard drink = 0.6 oz pur e alcohol) [facility] Inpatient Questions Answer Date Recorded Does Anyone [...] encounter Miscellaneous Notes * Telephone Encounter - Sydney Silva RN - 12/17/2023 10:26 AM EDT RTC to Stacy Albright 58 y.o. to discuss request for genetics referral. Patient reports that her mother passed from ovarian cancer earlier this year. It was recommended that she have genetictesting for this and her PCP rec'd OBGYN order this. Will request from provider. Patient also reports spotting in August or late September after her mother's passing. Reports she may have experienced some cramping or discomfort at the time as well. She is an Mirena IUD place and uses estradiol patches for HRT. Advised for Stacy to have PMB evaluated. She agrees with this plan,but just had knee surgery so requested to book a few weeks further out. Educated patient to call back with further bleeding, but to seek ED care for severe bleeding. Patient reports understanding. Scheduled for 01/03/24. * Telephone Encounter - Sydney Silva RN - 12/17/2023 10:22 AM EDT ----- Message from Sonia Dc RN sent at 12/17/2023 9:56 AM EDT ----- Mom from ovarian CA and PCP recommending genetic testing. Patient following up on getting thisordered. documented in this encounter Plan of Treatment Upcoming Encounters Date Type Department Care Team (Late st Contact Info) Description 08/07/2024 3:30 PM EST Office Visit Orthopaedics at [place] [address] Tarik Henry MD [facility] [place] [address] 09/22/2024 7:00 AM EST Appointment Ultrasound at [place] [address] Luis Michael Jr., MD [facility] [place] [address] 09/22/2024 8:00 AM EST Office Visit Urology at [place] [phone] Luis Michael Jr., MD [facility] [place] [address] Scheduled Referrals Name Type Priority Associated Diagnoses Orde r Schedule Referral to Familial Cancer Program (Genetics) Outpatient Referral Routine Family history of ovarian cancer Ordered: 12/17/2023 documented as of this encounter Visit Diagnoses Diagnosis Family history of ovarian cancer Family history of malignant neoplasm of ovary documented in this encounter Care Teams Housekeeping Manager Relationship Specialty Start Date End Date Janet Davey APRN PCP - General Family Medicine 07/13/20 02/10/24 documented as of this encounter
--- OUTSIDE RECORDS SUMMARY | 2024-07-20 18:26 | XMS_ITS | Encounter Summary ---
Author Organization [facility] [place] [address] Care Team Providers Care Configuration Analyst Name Role Phone Janet Davey APRN Primary Care Provider [phone] Encounter Details Date Type Department Care Team (Latest Contact Info) Description 12/20/2023 Travel Social History Tobacco Use Types Packs/Day Years Used Date Smoking Tobacco: Never Passive Smoke Exposure: Never Smokeless Tobacco: Never Alcohol Use Standard Drinks/Week Comments No 0 (1 standard drink = 0.6 oz pur e alcohol) [facility] Inpatient Questions Answer Date Recorded Does [...] 3:30 PM EST [place] [address] Tarik Henry MD [facility] [address] [place] [address] 09/22/2024 7:00 AM [place] [address] Luis Michael Jr., MD [facility] [address] 09/22/2024 8:00 AM EST [place] [address] Luis Michael Jr., MD [facility] [address] documented as of this encounter Visit Diagnoses Not on filedocumented in this encounter Care Teams Configuration Analyst Relationship Specialty Start Date End Date Janet Davey APRN PCP - General Family Medicine 07/13/20 02/10/24 documented as of this encounter
--- OUTSIDE RECORDS SUMMARY | 2024-07-20 18:26 | XMS_ITS | Encounter Summary ---
Author Organization [facility] Address [facility] [place] [address] Care Team Providers Care Change Attendant Name Role Phone Janet Davey SACHA Primary Care Provider [phone] Reason for Visit * Diagnostic Test (Routine) - Closed Specialty Diagnoses / Procedures Referred By Contac t Referred To Contact Radiology Diagnoses Primary osteoarthritis of both first carpometacarpal joints Procedures XR Fluoro Guided Joint Injection Small Right Image Guided MSK Joint/Tendon Injection/Aspiration (Generic) Milvia Yang PA [facility] [place] [address] [facility] Rad Xray [address] [place] [address] [place] [address] Referral ID Status Reason Start Date Expiration Date V isits Requested Visits Authorized [id number] Closed Specialty Service Requested 11/21/2023 05/22/2025 1 1 Encounter Details Date Type Department Care Team (Latest Contact Info) Description 01/24/2024 10:38 AM EDT - 01/24/2024 11:59 PM EDT Hospital Encounter XRay at [address] [place] [address] Vito Muñoz MD [facility]TH[facility] [address] Discharge Disposition: Home Social History Tobacco Use [...] this encounter Discharge Instructions * Patient Instructions* Ayad Jigna N - 01/24/2024 11:01 AM EDT Post Injection Patient Instructions You received an injection by HUMA EARLY PA-C in the diagnostic section of radiology. Procedure: BILATERAL THUMB INJECTIONS In the days following the [...] is during regular office hours, please call [phone]. If it is after regular office hours, or on weekends or holidays, please call [phone] and ask to speak to the Hosiery Pairer advisor consultant. Revised on 09/18/22 documented in this [...] mcg (0.1 %) Aerosol, [place] as needed. 0 06/17/2017 SUMAtriptan (IMITREX) 100 mg Tablet as needed for Migraine. 1 04/13/2016 hydrocortisone (WESTCORT) 0.2 % Cream Apply topically as needed. 07/25/2015 multivitamin (THERAGRAN) tablet Take 1 tablet by mouth daily. montelukast (SINGULAIR) 10 mg tablet Take 10 mg by mouth daily as needed. 12/07/2010 albuterol (ACCUNEB) 0.63 mg/3 mL nebulizer solution 08/24/2010 ipratropium (ATROVENT) 21 mcg (0.03 %) [place], Non-AerosolIndication s:Vasomotor rhinitis SPRAY TWO SPRAYS INTO [...] 3:30 PM EST Office [place] [address] Tarik Henry MD [facility] [address] 09/22/2024 7:00 AM EST [place] [phone] Luis Michael Jr., MD [facility] [place] [address] 09/22/2024 8:00 AM EST [place] [phone] Luis Michael Jr., MD [facility] [place] [address] documented as of this encounter Procedures Procedure Name Priority Date/Time Associated Diagnosis Comments XR FLUORO INJECTION DRAINAGE JOINT SM RIGHT Routine 01/24/2024 11:14 AM EDT Primary osteoarthritis of both first carpometacarpal joints XR FLUORO INJECTION DRAINAGE JOINT SM LEFT Routine 01/24/2024 11:14 AM EDT Primary osteoarthritis of both first carpometacarpal joints documented in this encounter Visit Diagnoses Not on filedocumented in this encounter Administered Medications Inactive Administered Medications - up to 3 most recent administrations Medication Order MAR Action Action Date Dose Rate Site iohexoL (Omnipaque) (300 mg/mL) solution 0-10 mL 0-10 mL, Intra-articular, ONCE, 1 dose, On Sat01/24/24 at 1130, Warning Vesicant/Irritant Medication , Radiology Contrast, Routine Given 01/24/2024 11:08 AM EDT 1 mL iohexoL (Omnipaque) (300 mg/mL) solution 0-10 mL 0-10 mL, Intra-articular, ONCE, 1 dose, On Sat01/24/24 at 1130, Warning Vesicant/Irritant Medication , Radiology Contrast, Routine Given 01/24/2024 11:04 AM EDT 1 mL lidocaine (Xylocaine) 1% (10 mg/mL) injection 0-100 mg 0-100 mg (0-10 mL), Intra-articular, ONCE, 1 dose, On Sat01/24/24 at 1130, Radiology Protocol Medication, Routine Given 01/24/2024 11:07 AM EDT 1 mL lidocaine (Xylocaine) 1% (10 mg/mL) injection 0-100 mg 0-100 mg (0-10 mL), Intra-articular, ONCE, 1 dose, On Sat01/24/24 at 1130, Radiology Protocol Medication, Routine Given 01/24/2024 11:02 AM EDT 0.5 mLs Left Thumb MCP methylPREDNISolone acetate (DEPO-Medrol) (40 mg/mL) injection 0-160 mg 0-160 mg, Intra-articular, ONCE, 1 dose, On Sat01/24/24 at 1130, Radiology Protocol Medication, Routine Given 01/24/2024 11:07 AM EDT 40 mg methylPREDNISolone acetate (DEPO-Medrol) (40 mg/mL) injection 0-160 mg 0-160 mg, Intra-articular, ONCE, 1 dose, On Sat01/24/24 at 1130, Radiology Protocol Medication, Routine Given 01/24/2024 11:04 AM EDT 40 mg ROPivacaine (PF) (Naropin) 0.5% (5 mg/mL) injection 0-50 mg 0-50 mg (0-10 mL), Intra-articular, ONCE, 1 dose, On Sat01/24/24 at 1130, Radiology Protocol Medication, Routine Bolus from Infusion 01/24/2024 11:07 AM EDT 0.5 mLs ROPivacaine (PF) (Naropin) 0.5% (5 mg/mL) injection 0-50 mg 0-50 mg (0-10 mL), Intra-articular, ONCE, 1 dose, On Sat01/24/24 at 1130, Radiology Protocol Medication, Routine Bolus from Infusion 01/24/2024 11:03 AM EDT 0.5 mLs documented in this encounter Care Teams Change Attendant Relationship Specialty Start Date End Date Janet Davey APRN PCP - General Family Medicine 07/13/20 02/10/24 documented as of this encounter
--- OUTSIDE RECORDS SUMMARY | 2024-07-20 18:26 | XMS_ITS | Encounter Summary ---
Author Organization [facility] [place] [address] Care Team Providers Care Fitting Room Checker Name Role Phone Janet Davey APRN Primary Care Provider [phone] Encounter Details Date Type Department Care Team (Latest Contact Info) Description 08/30/2023 Travel Social History Tobacco Use Types Packs/Day Years Used Date Smoking Tobacco: Never Passive Smoke Exposure: Never Smokeless Tobacco: Never Alcohol Use Standard Drinks/Week Comments No 0 (1 standard drink = 0.6 oz pur e alcohol) [facility] Inpatient Questions Answer Date Recorded Does [...] 3:30 PM EST Office [place] [address] Tarik Henry MD [facility] DR ORTHOPAEDIC [place] [address] 09/22/2024 7:00 AM EST Appointment [place] [address] Luis Michael Jr., MD [facility] [place] [address] 09/22/2024 8:00 AM EST Office [place] [address] Luis Michael Jr., MD [facility] [place] [address] documented as of this encounter Visit Diagnoses Not on filedocumented in this encounter Care Teams Fitting Room Checker Relationship Specialty Start Date End Date Janet Davey APRN PCP - General Family Medicine 07/13/20 02/10/24 documented as of this encounter
--- OUTSIDE RECORDS SUMMARY | 2024-07-20 18:26 | XMS_ITS | Encounter Summary ---
Author Organization [facility] [place] [address] Care Team Providers Care Paint Formulator Name Role Phone Janet Davey APRN Primary Care Provider [phone] Encounter Details Date Type Department Care Team (Latest Contact Info) Description 02/01/2024 Travel Social History Tobacco Use Types Packs/Day [...] 3:30 PM EST Office [place] [address] Tarik Henry MD [facility] [place] [address] 09/22/2024 7:00 AM EST [place] [address] Luis Michael Jr., MD [facility] [place] [address] 09/22/2024 8:00 AM EST [place] [address] Luis Michael Jr., MD [facility] [place] [address] documented as of this encounter Visit Diagnoses Not on filedocumented in this encounter Care Teams Paint Formulator Relationship Specialty Start Date End Date Janet Davey APRN PCP - General Family Medicine 07/13/20 02/10/24 documented as of this encounter
--- OUTSIDE RECORDS SUMMARY | 2024-07-20 18:26 | XMS_ITS | Encounter Summary ---
[place] [address] Care Team Providers Care Production Finisher Name Role Phone Janet Davey SACHA Primary Care Provider [phone] Reason for Referral * Diagnostic Test (Routine) - Closed Specialty Diagnoses / Procedures Referred By Contac t Referred To Contact Radiology Diagnoses Right wrist tendonitis Procedures MRI Wrist wo Contrast Left (Generic) Milvia Yang PA [facility] [place] [address] [place] [address] Referral ID Status Reason Start Date Expiration Date V isits Requested Visits Authorized [id number] Closed Specialty Service Requested 01/14/2024 03/13/2024 1 1 Reason for Visit * Diagnostic Test (Routine) - Closed Specialty Diagnoses / Procedures Referred By Contac t Referred To Contact Radiology Diagnoses Right wrist tendonitis Procedures MRI Wrist wo Contrast Left (Generic) Milvia Yang PA [facility] [place] [address] [place] [address] Referral ID Status Reason Start Date Expiration Date V isits Requested Visits Authorized [id number] Closed Specialty Service Requested 01/14/2024 03/13/2024 1 1 Encounter Details Date Type Department Care Team (Latest Contact Info) Description 02/01/2024 1:31 PM EDT - 02/01/2024 11:59 PM EDT Hospital Encounter MRI [facility] [place] [address] Vito Muñoz MD [facility] [place] [address] Right wrist tendonitis Discharge Disposition: Home Social History Tobacco Use Types Packs/Day Years Used Date Smoking Tobacco: Never Passive Smoke Exposure: Never Smokeless Tobacco: Never Alcohol Use Standard Drinks/Week Comments No 0 (1 standard drink = 0.6 oz pur e alcohol) [facility] Inpatient Questions Answer Date Recorded Does Anyone [...] azelastine (ASTELIN) 137 mcg (0.1 %) Aerosol, [place] as needed. 0 06/17/2017 SUMAtriptan (IMITREX) 100 mg Tablet as needed for Migraine. 1 04/13/2016 hydrocortisone (WESTCORT) 0.2 % Cream Apply topically as needed. 07/25/2015 multivitamin (THERAGRAN) tablet Take 1 tablet by mouth daily. montelukast (SINGULAIR) 10 mg tablet Take 10 mg by mouth daily as needed. 12/07/2010 albuterol (ACCUNEB) 0.63 mg/3 mL nebulizer solution 08/24/2010 ipratropium (ATROVENT) 21 mcg (0.03 %) [place], Non-AerosolIndication s:Vasomotor rhinitis SPRAY TWO SPRAYS INTO [...] 3:30 PM EST Office [place] [phone] Tarik Henry MD [facility] [place] [address] 09/22/2024 7:00 AM [place] [address] Luis Michael Jr., MD [facility] [place] [address] 09/22/2024 8:00 AM EST [place] [address] Luis Michael Jr., MD [facility] [place] [address] documented as of this encounter Procedures Procedure Name Priority Date/Time Associated Diagnosis Comments MRI WRIST LEFT WO CONTRAST Routine 02/01/2024 2:35 PM EDT Right wrist tendonitis documented in this encounter Results * MRI Wrist wo Contrast Left (Generic) (02/01/2024 2:35 PM EDT) WORKSTATION ID [id number] [facility] Anatomical Region Laterality Modality Wrist Left Magnetic Resonan ce Impressions 02/03/2024 9:16 AM EDT 1. ??2nd and 3rd extensor tenosynovitis consistent with intersection syndrome. ??2 mm ganglion cyst versus varicosity abutting the extensor pollicis longus tendon just distal to the intersection. 2. ??Pinhole tear of the central component of the triangular fibrocartilage complex. 3. ??Mild osteoarthropathy the 1st carpal metacarpal and triscaphe joints. 4. ??Multiple varicosities versus ganglion cysts at the volar-radial margin of the pisotriquetral joint. Thank you for letting us participate in the care of this patient. ??If you are a health care provider and have any questions regarding this report, please contact the number below. ??For patients who have questions please contact the health care attendant that requested your imaging first. ? Narrative 02/03/2024 9:16 AM EDT EXAMINATION: MRI WRIST WO CONTRAST LEFT (GENERIC) CLINICAL HISTORY: left volar wrist pain, eval for flexor tendonitis versus other etiology ?? (as entered by ordering provider in the order requisition) TECHNIQUE: MR of the left wrist was performed without contrast. Sequences include axial proton density, axial T2 with fat saturation, coronal proton density with and without fat saturation, sagittal proton density with fat saturation, sagittal T1. COMPARISON: Bilateral wrist radiographs August 30, 2023 FINDINGS: Tendons: The extensor and flexor tendons are intact. ??There is mild fluid distention of the 2nd and 3rd extensor compartments at and just distal to their intersection (series 4001, image 13 and 9). ??There is a 2 mm ganglion cyst versus varicosity abutting the extensor pollicis longus tendon at the level the 1st carpal metacarpal joint (series 4001, image 9). Ligaments: The scapholunate ligament is intact. The lunotriquetral ligament is intact. ??There is a tiny pinhole tear of the central component of the triangular fibrocartilage complex (series 6001, image 10). ??The volar radioscaphocapitate and volar radiolunate ligaments are intact. The dorsal radiotriquetral and dorsal intercarpal ligaments are intact. Bones, cartilage, and joints: No acute fracture. No discrete cartilage defects. There is superficial partial-thickness cartilage loss of the 1st carpal metacarpal and triscaphe joints. ??There is subchondral cystic change of the lunate. Muscles and soft tissues: Normal bulk and signal of the visualized muscles. Normal caliber and signal of the visualized median and ulnar nerves. There are are multiple varicosities versus ganglion cysts along the volar-radial margin of the pisotriquetral joint (series 4001, image 20 through 13). Procedure Note Romy Waller MD - 02/03/2024 EXAMINATION: MRI WRIST WO CONTRAST LEFT (GENERIC) CLINICAL HISTORY: left volar wrist pain, eval for flexor tendonitisversus other etiology (as entered by ordering provider in the orderrequisition) TECHNIQUE: MR of the left wrist was performed without contrast. Sequences includeaxial proton density, axial T2 with fat saturation, coronal proton density withand without fat saturation, sagittal proton density with fat saturation,sagittal T1. COMPARISON: Bilateral wrist radiographs August 30, 2023 FINDINGS: Tendons: The extensor and flexor tendons are intact. There is mildfluid distention of the 2nd and 3rd extensor compartments at and just distal totheir intersection (series 4001, image 13 and 9). There is a 2 mm ganglioncyst versus varicosity abutting the extensor pollicis longus tendon at thelevel the 1st carpal metacarpal joint (series 4001, image 9). Ligaments: The scapholunate ligament is intact. The lunotriquetralligament is intact. There is a tiny pinhole tear of the central component of thetriangular fibrocartilage complex (series 6001, image 10). The volarradioscaphocapitate and volar radiolunate ligaments are intact. The dorsal radiotriquetral and dorsal intercarpal ligaments are intact. Bones, cartilage, and joints: No acute fracture. No discrete cartilagedefects. There is superficial partial-thickness cartilage loss of the 1st carpal metacarpal and triscaphe joints. There is subchondral cystic change ofthe lunate. Muscles and soft tissues: Normal bulk and signal of the visualizedmuscles. Normal caliber and signal of the visualized median and ulnar nerves. There are are multiple varicosities versus ganglion cysts along thevolar-radial margin of the pisotriquetral joint (series 4001, image 20 through 13). IMPRESSION 1. 2nd and 3rd extensor tenosynovitis consistent with intersectionsyndrome. 2 mm ganglion cyst versus varicosity abutting the extensor pollicis longustendon just distal to the intersection. 2. Pinhole tear of the central component of the triangularfibrocartilage complex. 3. Mild osteoarthropathy the 1st carpal metacarpal and triscaphejoints. 4. Multiple varicosities versus ganglion cysts at the volar-radial marginof the pisotriquetral joint. Thank you for letting us participate in the care of this patient. If youare a health care provider and have any questions regarding this report,please contact the number below. For patients who have questions please contactthe health care attendant that requested your imaging first. Vito Muñoz MD IMG MRI ORDERABLES documented in this encounter Visit Diagnoses Diagnosis Right wrist tendonitis documented in this encounter Care Teams Production Finisher Relationship Specialty Start Date End Date Janet Davey APRN PCP - General Family Medicine 07/13/20 02/10/24 documented as of this encounter
--- OUTSIDE RECORDS SUMMARY | 2024-07-20 18:26 | XMS_ITS | Encounter Summary ---
Author Organization [facility] [place] [address] Care Team Providers Care Field Account Manager Name Role Phone Janet Davey APRN Primary Care Provider [phone] Reason for Visit * Reason Comments Establish Care * Consultation (Routine) - Authorized Specialty Diagnoses / Procedures Referred By Alberta mendosa Referred To Contact Gynecology Oncology Diagnoses Family history of malignant neoplasm of ovary Retail Assistant Manager Onc Janet Davey, COMMERCIAL RELATIONSHIP MANAGER [address] [place] [address] [facility] Sales Representative [employer] [address] [place] [address] Referral ID Status Reason Start Date Expiration Date Visits Requested Visits Authorized [id number] Authorized Consult, Test & Treat PCP Updated and/or Approved 12/24/2023 12/23/2024 6 6 Encounter Details Date Type Department Care Team (Late st Contact Info) Description 01/03/2024 3:20 PM EDT Office Visit Obstetrics [place] [address] Rosita Almazan MD [facility] OBSTETRICS [place] [address] Postmenopausal bleeding (Primary Dx); Hormone replacement therapy (postmenopausal) Social History Tobacco [...] Reading Time Taken Comments Blood Pressure 98/64 01/03/2024 3:10 PM EDT Pulse - - Temperature - - Respiratory Rate - - Oxygen Saturation - - Inhaled Oxygen Concentration - - Weight - - Height - - Body Mass Index - - documented in this encounter Progress Notes * Rosita Almazan MD - 01/03/2024 3:20 PM EDT Return GARBAGE PICK UP WORKER Problem visit. Subjective: Jessica Gtz 58 y.o. who presents today to discuss AUB. She reports that after her mom in September, she had ~4d of spotting. She also had an episode of vaginal spotting again this week, she noticed it when wiping. No pain. She is taking HRT. She started in 2013 and is on 0.1mg estradiol patch. Mirena IUD in place since 2015. Today she notes that she feels symptomatic when she delays switching patch (hot flashes and mood changes). She tried to taper down to 0.025mg patch in 2020, but she did not tolerate this. Last lipids done 01/2022. Pap 09/2020: NILM, neg HPV, endometrial cells EMB 11/2020: Endometrial biopsy: 1. Fragments of benign endometrium intermixed with blood clot and cervical mucus. 2. Endometrial tissue fragments with features suggestive of an endometrial polyp. 3. No evidence of hyperplasia or endometritis. Patient Active Problem List Diagnosis Date Noted Post-COVID syndrome 05/29/2022 Primary osteoarthritis of both first carpometacarpal joints [...] History: Procedure Laterality Date CREATED BY INTERFACE E.S.W.LJoseph(MSUROL) Procedure Date: 01/16/2008 KNEE SURGERY 03/01/14 Right knee; patella surgery LITHOTRIPSY PRO CYSTO/URETERO/PYELOSCOPY, CALCULUS TX Left 03/15/2023 CYSTOURETHROSCOPY WITH UTETEROSCOPY, W\REMOVAL, MANIPULATION OF CALCULUS (WRVU 6.75) performed by Luis Michael Jr., MD at [facility] OSC PRO CYSTOSCOPY, INSERT URETERAL STENT Left 03/15/2023 CYSTO, STENT PLACEMENT (WRVU 2.82) performed by Luis Michael Jr., MD at [facility] OSC PRO CYSTOSCOPY, TX URETERAL STRICTURE Left 03/15/2023 CYSTOURETHROSCOPY, BALLOON DILATION OF URETERAL STRICTURE (WRVU 5.35) performed by Luis Michael Jr., MD at [facility] OSC PRO CYSTOURETHROSCOPY, FULGUR <.5CM LESN N/A 04/18/2017 CYSTO, FULGURATION\BLADDER LESION\W\WO BX\LESS THAN 0.5CM (WRVU 4.05) performed by Luis Michael Jr., MD at [facility] MAIN OR SHOULDER SURGERY Right 07/2019 XR FLUORO INJECTION DRAINAGE JOINT SM LEFT Left 09/12/2023 XR Fluoro Guided Joint Injection Small Left 09/12/2023 Aylin Ron PA [facility] RAD XRAY XR FLUORO INJECTION DRAINAGE JOINT SM RIGHT Right 09/12/2023 XR Fluoro Guided Joint Injection Small Right 09/12/2023 Aylin Ron PA [facility] RAD XRAY Outpatient Medications Marked as Taking for the 01/03/24 encounter (Office Visit) with Rosita Almazan MD Medication Sig Dispense Refill ipratropium (ATROVENT) 21 mcg (0.03 %) [place], Non-Aerosol SPRAY TWO SPRAYS INTO EACH NOSTRIL TWICE A DAY 30 mL 3 hydroCHLOROthiazide (Microzide) 12.5 mg capsule TAKE ONE CAPSULE BY MOUTH EVERY DAY 90 capsule 0 tamsulosin (Flomax) 0.4 mg capsule Take 1 capsule by mouth daily. 90 tablet 0 sertraline (Zoloft) 25 mg tablet Take 25 mg by mouth daily. Taking 75 mg daily estradioL 0.1 mg/24 hr Patch Semiweekly Change 1 patch on the skin twice a week. 8 patch 12 levonorgestreL (Mirena) 21 mcg/24 hours (8 yrs) 52 mg IUD 1 each by Intrauterine route Continuous (Device). Placed 05/01/16 Symbicort 160-4.5 mcg/actuation HFA Aerosol Inhaler Inhale [...] azelastine (ASTELIN) 137 mcg (0.1 %) Aerosol, [place] as needed. 0 SUMAtriptan (IMITREX) 100 mg Tablet as needed for Migraine. 1 hydrocortisone (WESTCORT) 0.2 % Cream Apply topically as needed. multivitamin (THERAGRAN) tablet Take 1 tablet by mouth daily. montelukast (SINGULAIR) 10 mg tablet Take 10 mg by mouth every morning. albuterol (ACCUNEB) 0.63 mg/3 mL nebulizer solution Allergies Allergen Reactions Escitalopram Other (See Comments) Grass Pollen-[place], Standard Other (See Comments) Runny nose, itching, sneezing Mold Extracts Other (See Comments) Sneezing and runny nose Current Outpatient Medications on File Prior to Visit Medication Sig Dispense Refill ipratropium (ATROVENT) 21 mcg (0.03 %) [place], Non-Aerosol SPRAY TWO SPRAYS INTO EACH NOSTRIL TWICE A DAY 30 mL 3 hydroCHLOROthiazide (Microzide) 12.5 mg capsule TAKE ONE CAPSULE BY MOUTH EVERY DAY 90 capsule 0 tamsulosin (Flomax) 0.4 mg capsule Take 1 capsule by mouth daily. 90 tablet 0 sertraline (Zoloft) 25 mg tablet Take 25 mg by mouth daily. Taking 75 mg daily estradioL 0.1 mg/24 hr Patch Semiweekly Change 1 patch on the skin twice a week. 8 patch 12 levonorgestreL (Mirena) 21 mcg/24 hours (8 yrs) 52 mg IUD 1 each by Intrauterine route Continuous (Device). Placed 05/01/16 Symbicort 160-4.5 mcg/actuation HFA Aerosol Inhaler Inhale [...] azelastine (ASTELIN) 137 mcg (0.1 %) Aerosol, [place] as needed. 0 SUMAtriptan (IMITREX) 100 mg Tablet as needed for Migraine. 1 hydrocortisone (WESTCORT) 0.2 % Cream Apply topically as needed. multivitamin (THERAGRAN) tablet Take 1 tablet by mouth daily. montelukast (SINGULAIR) 10 mg tablet Take 10 mg by mouth every morning. albuterol (ACCUNEB) 0.63 mg/3 mL nebulizer solution estradioL (ESTRACE) 0.01 % (0.1 mg/gram) Cream Place 2 g vaginally twice a week. (Patient not taking: Reported on 10/24/2023) 42.5 g 12 No current facility-administered medications on file prior to visit. ROS: See HPI, all others negative. Objective: BP 98/64 General: Appears healthy and well nourished. No apparent distress. Lungs: normal effort Neuro: grossly normal Pelvic Exam: Deferred Assessment/Plan: Jessica Gtz Is a 58 y.o. on HRT who presents with PMB. Note: Jessica had knee surgery 3 weeks ago. Therefore, she understandably prefers to defer pelvic exam/positioning in stirrups to allow more healing. Today we discussed the followin) PMB: Recommendation for repeat US (ordered) and EMB at f/u visit 2) Mirena placed 2015, due to be removed. She would like to continue HRT at this time, so would recommend replacing IUD. (We also discussed oral progestins, but she would like to stick with IUD.) 3) She has been on HRT x 10y. Feels well on it and would like to continue. Discussed general recommendation for smallest dose and shortest duration to minimize risks. Recommend checking lipids, re-calculating risk score. Additionally, if/when she is ready to taper, I would recommend a very slow and gradual taper (e.g., transitioning to 0.075mg patch for a month, then taper slowly from there). Patient is concerned she will be symptomatic, as she was before, but she is amenable to continuing thisdiscussion at next follow up appt. Today we will plan for her to schedule US. Return for lab draw. Follow up for EMB, IUD replacement with me. Questions answered. documented in this encounter Plan of Treatment Upcoming Encounters Date Type Department Care Team (Late st Contact Info) Description 08/07/2024 3:30 PM EST Office [place] [address] Tarik Henry MD [facility] [place] [address] 09/22/2024 7:00 AM EST Appointment [place] [address] Luis Michael Jr., MD [facility] [place] [address] 09/22/2024 8:00 AM EST Office [place] [phone] Luis Michael Jr., MD [facility] [place] [address] documented as of this encounter Results * US Transvaginal Non OB (02/18/2024 1:17 PM EDT) WORKSTATION ID [id number] [facility] Anatomical Region Laterality Modality Ultrasound 02/18/2024 12:3 [...] cyst, not seen on prior 2021 ultrasound. Thank you for letting us participate in the care of this patient. If you are a health care provider and have any questions regarding this report, please contact the number above. For patients who have questions, please contact the health healthcare corporate account director that requested your imaging first. ?Genie Carrasco, [facility] Ict Business Development Manager Electronically Signed Final Report ?? 02/18/2024 02:46 pm Narrative 02/18/2024 2:47 PM EDT Gynecological Report ?(Signed Final 02/18/2024 02:46 pm) PATIENT INFO: ID #: ? [id number] ?: ??[birth year] (58 yrs)(F) Name: ? JESSICA Melvin GTZ ?Visit Date: 02/18/2024 12:38 pm PERFORMED BY: Attending: ?Luna GILL, Genie Dumont Performed By: ? Citlaly Billings RDMS Referred By: ?ROSITA ALMAZAN Location: ? [facility] SERVICE(S) PROVIDED: UTV - Transvaginal - [id number] ?[id number] U3D - ??3D rendering with interpretation - [id number] ? [id number] INDICATIONS: PMB, on HRT. IUD in place. [...] 02/18/2024 02:46 pm) PATIENT INFO: ID #: [id number] : [birth year] (58 yrs)(F) Name: JESSICA GTZ Visit Date: 02/18/2024 12:38 pm PERFORMED BY: Attending: Genie Carrasco MD Performed By: Citlaly Billings RDMS Referred By: ROSITA ALMAZAN Location: [facility] SERVICE(S) PROVIDED: UTV - Transvaginal - [id number] U3D - 3D rendering with interpretation - [id number] INDICATIONS: PMB, on HRT. IUD in place. [...] cyst, not seen on prior 2021 ultrasound. Thank you for letting us participate in the care of this patient. If you are a health care provider and have any questions regarding this report, please contact the number above. For patients who have questions, please contact the health healthcare corporate account director that requested your imaging first. Genie Carrasco, [facility] Ict Business Development Manager Electronically Signed Final Report 02/18/2024 02:46 pm Rosita Almazan MD IMG US PELVIC OR DERABLES * Lipid Panel (Reflex Direct LDL) (02/18/2024 11:58 AM EDT) Cholesterol, Total 176 mg/dL [facility] Comment: Desirable: ? <200 mg/dL Borderline High: 200-239 mg/dL Higher: ?>cd=421 mg/dL Triglyceride 68 mg/dL [facility] Comment: Normal: ?<150 mg/dL Borderline High: 150-199 mg/dL High: ?200-499 mg/dL Very High: ? >sy=755 mg/dL HDL Cholesterol 75 mg/dL [facility] Comment: Females: High Risk: <50 mg/dL Males: High Risk: <40 mg/dL LDL Cholesterol 87 mg/dL [facility] Comment: Desirable: ? <100 mg/dL Above Desirable: 100-129 mg/dL Borderline High: 130-159 mg/dL High: ?160-189 mg/dL Very High: ? >vc=767 mg/dL Lipid Interpretation See Note [facility] Comment: It is important to review [...] ACC/AHA Guidelines (most recently Rosio et al. [facility] 05/29/22): For individuals with atherosclerotic cardiovascular disease (ASCVD)or LDL >tn=264 mg/dL, use a high-intensity statin (40-80 mg [...] Resulting Agency Comment Spec In Lab Rosita Almazan MD CHEMISTRY ORDERA BLES Performing Organization Address City/State/[facility] [place] [address] documented in this encounter Visit Diagnoses Diagnosis Postmenopausal bleeding- Primary Hormone replacement therapy (postmenopausal) Need for prophylactic hormone replacement therapy (postmenopausal) Postmenopausal bleeding documented in this encounter Care Teams Field Account Manager Relationship Specialty Start Date End Date Janet Davey APRN PCP - General Family Medicine 07/13/20 02/10/24 documented as of this encounter
--- OUTSIDE RECORDS SUMMARY | 2024-07-20 18:26 | XMS_ITS | Encounter Summary ---
Author Organization [facility] [place] [address] Care Team Providers Care Senior Director Of [employer] Name Role Phone Janet Davey APRN Primary Care Provider [phone] Encounter Details Date Type Department Care Team (Latest Contact Info) Description 09/12/2023 Travel Social History Tobacco Use Types Packs/Day [...] 3:30 PM EST Office [place] [address] Tarik Henry MD [facility] DR OR[place]OP[place] [address] 09/22/2024 7:00 AM EST Appoint[place] [address] Luis Michael Jr., MD [facility] [place] [address] 09/22/2024 8:00 AM EST Office [place] [address] Luis Michael Jr., MD [facility] [place] [address] documented as of this encounter Visit Diagnoses Not on filedocumented in this encounter Care Teams Senior Director Of [employer] Relationship Specialty Start Date End Date Janet Davey APRN PCP - General Family Medicine 07/13/20 02/10/24 documented as of this encounter
--- OUTSIDE RECORDS SUMMARY | 2024-07-20 18:26 | XMS_ITS | Encounter Summary ---
Author Organization [facility] [place] [address] Care Team Providers Care Recruitment Assistant Name Role Phone Janet Davey APRN Primary Care Provider [phone] Encounter Details Date Type Department Care Team (Latest Contact Info) Description 02/08/2024 Travel Social History Tobacco Use Types Packs/Day Years Used Date Smoking Tobacco: Never Passive Smoke Exposure: Never Smokeless Tobacco: Never Alcohol Use Standard Drinks/Week Comments No 0 (1 standard drink = 0.6 oz pur e alcohol) [facility] Inpatient Questions Answer Date Recorded Does [...] 3:30 PM EST Office [place] [address] Tarik Henry MD [facility] [place] [address] 09/22/2024 7:00 AM EST [place] [address] Luis Michael Jr., MD [facility] [place] [address] 09/22/2024 8:00 AM EST [place] [address] Luis Michael Jr., MD [facility] [place] [address] documented as of this encounter Visit Diagnoses Not on filedocumented in this encounter Care Teams Recruitment Assistant Relationship Specialty Start Date End Date Janet Davey APRN PCP - General Family Medicine 07/13/20 02/10/24 documented as of this encounter
--- OUTSIDE RECORDS SUMMARY | 2024-07-20 18:26 | XMS_ITS | Encounter Summary ---
Author Organization [facility] [place] [address] Care Team Providers Care Sugar Drier Name Role Phone Janet Davey APRN Primary Care Provider [phone] Encounter Details Date Type Department Care Team (Latest Contact Info) Description 10/24/2023 Travel Social History Tobacco Use Types Packs/Day Years Used Date Smoking Tobacco: Never Passive Smoke Exposure: Never Smokeless Tobacco: Never Alcohol Use Standard Drinks/Week Comments No 0 (1 standard drink = 0.6 oz pur e alcohol) [facility] Inpatient Questions Answer Date Recorded Does [...] 3:30 PM EST Office [place] [address] Tarik Henry MD [facility] [place] [address] 09/22/2024 7:00 AM EST [place] [address] Luis Michael Jr., MD [facility] [place] [address] 09/22/2024 8:00 AM EST [place] [address] Luis Michael Jr., MD [facility] [place] [address] documented as of this encounter Visit Diagnoses Not on filedocumented in this encounter Care Teams Sugar Drier Relationship Specialty Start Date End Date Janet Davey APRN PCP - General Family Medicine 07/13/20 02/10/24 documented as of this encounter
--- OUTSIDE RECORDS SUMMARY | 2024-07-20 18:26 | XMS_ITS | Encounter Summary ---
Author Organization [facility] [place] [address] Care Team Providers Care Driver Name Role Phone Janet Davey APRN Primary Care Provider [phone] Encounter Details Date Type Department Care Team (Latest Contact Info) Description 10/19/2023 Travel Social History Tobacco Use Types Packs/Day [...] 3:30 PM EST Office [place] [address] Tarik Henry MD [facility] [address] [place] [address] 09/22/2024 7:00 AM EST [place] [address] Luis Michael Jr., MD [facility] [place] [address] 09/22/2024 8:00 AM EST [place] [address] Luis Michael Jr., MD [facility] [place] [address] documented as of this encounter Visit Diagnoses Not on filedocumented in this encounter Care Teams Driver Relationship Specialty Start Date End Date Janet Davey APRN PCP - General Family Medicine 07/13/20 02/10/24 documented as of this encounter
--- OUTSIDE RECORDS SUMMARY | 2024-07-20 18:26 | XMS_ITS | Encounter Summary ---
Author Organization [facility] [place] [address] Care Team Providers Care Leasing Professional Name Role Phone Janet Davey APRN Primary Care Provider [phone] Encounter Details Date Type Department Care Team (Latest Contact Info) Description 10/01/2023 Travel Social History Tobacco Use Types Packs/Day Years Used Date Smoking Tobacco: Never Passive Smoke Exposure: Never Smokeless Tobacco: Never Alcohol Use Standard Drinks/Week Comments No 0 (1 standard drink = 0.6 oz pur e alcohol) [facility] Inpatient Questions Answer Date Recorded [...] 3:30 PM EST [place] [address] Tarik Henry MD [facility] DR [place] [address] 09/22/2024 7:00 AM [place] [address] Luis Michael Jr., MD [facility] [place] [address] 09/22/2024 8:00 AM EST [place] [address] Luis Michael Jr., MD [facility] [place] [address] documented as of this encounter Visit Diagnoses Not on filedocumented in this encounter Care Teams Leasing Professional Relationship Specialty Start Date End Date Janet Davey APRN PCP - General Family Medicine 07/13/20 02/10/24 documented as of this encounter
--- OUTSIDE RECORDS SUMMARY | 2024-07-20 18:26 | XMS_ITS | Encounter Summary ---
Author Organization [facility] [place] [address] Care Team Providers Care Vibration Engineer Name Role Phone Janet Davey APRN Primary Care Provider [phone] Encounter Details Date Type Department Care Team (Latest Contact Info) Description 08/26/2023 Travel Social History Tobacco Use Types Packs/Day [...] 3:30 PM EST [place] [address] Tarik Henry MD [facility] DR ORTHOPAEDIC [place] [address] 09/22/2024 7:00 AM [place] [address] Luis Michael Jr., MD [facility] [place] [address] 09/22/2024 8:00 AM EST [place] [address] Luis Michael Jr., MD [facility] [place] [address] documented as of this encounter Visit Diagnoses Not on filedocumented in this encounter Care Teams Vibration Engineer Relationship Specialty Start Date End Date Janet Davey APRN PCP - General Family Medicine 07/13/20 02/10/24 documented as of this encounter
--- OUTSIDE RECORDS SUMMARY | 2024-07-20 18:26 | XMS_ITS | Encounter Summary ---
[place] [address] Care Team Providers Care Surgical Assist Name Role Phone Janet Davey APRN Primary Care Provider [phone] Reason for Referral * Consultation (Routine) - Closed Specialty Diagnoses / Procedures Referred By Alberta mendosa Referred To Contact Orthopaedics Diagnoses Left wrist pain Janet Davey APRN [address] [place] [address] [facility] [address] [place] [phone] Referral ID Status Reason Start Date Expiration Date V isits Requested Visits Authorized [id number] Closed Consult, Test & Treat PCP Updated and/or Approved 08/06/2023 02/03/2024 6 6 Encounter Details Date Type Department Care Team (Late st Contact Info) Description 08/12/2023 Transcribe Orders eDH Incoming Referrals [phone] Janet Davey APRN [address] [facility] [address] Left wrist pain Social History Tobacco Use Types [...] 3:30 PM EST Office [place] [address] Tarik Henry MD [facility] [place] [address] 09/22/2024 7:00 AM EST Appointment Ultrasound at [place] [address] Luis Michael Jr., MD [facility] [place] [address] 09/22/2024 8:00 AM EST Office Visit Urology at [place] [address] Luis Michael Jr., MD [facility] [place] [address] Scheduled Referrals Name Type Priority Associated Diagnoses Order Schedule Referral to Orthopaedics Outpatient Referral Routine Left wrist pain Ordered: 08/12/2023 documented as of this encounter Visit Diagnoses Diagnosis Left wrist pain Pain in joint, forearm documented in this encounter Care Teams Surgical Assist Relationship Specialty Start Date End Date Janet Davey APRN PCP - General Family Medicine 07/13/20 02/10/24 documented as of this encounter
--- OUTSIDE RECORDS SUMMARY | 2024-07-20 18:26 | XMS_ITS | Encounter Summary ---
Author Organization [facility] [place] [address] Care Team Providers Care Property And Supply Officer Name Role Phone Janet Davey APRN Primary Care Provider [phone] Encounter Details Date Type Department Care Team (Latest Contact Info) Description 01/24/2024 Travel Social History Tobacco Use Types Packs/Day Years Used Date Smoking Tobacco: Never Passive Smoke Exposure: Never Smokeless Tobacco: Never Alcohol Use Standard Drinks/Week Comments No 0 (1 standard drink = 0.6 oz pur e alcohol) [facility] Inpatient Questions Answer Date Recorded [...] 3:30 PM EST Office [place] [address] Tarik Henry MD [facility] [place] [address] 09/22/2024 7:00 AM EST [place] [address] Luis Michael Jr., MD [facility] [place] [address] 09/22/2024 8:00 AM EST [place] [address] Luis Michael Jr., MD [facility] [place] [address] documented as of this encounter Visit Diagnoses Not on filedocumented in this encounter Care Teams Property And Supply Officer Relationship Specialty Start Date End Date Janet Davey APRN PCP - General Family Medicine 07/13/20 02/10/24 documented as of this encounter
--- OUTSIDE RECORDS SUMMARY | 2024-07-20 18:26 | XMS_ITS | Encounter Summary ---
Author Organization [facility] [place] [address] Care Team Providers Care Casino Dealer Name Role Phone Janet Davey APRN Primary Care Provider [phone] Encounter Details Date Type Department Care Team (Latest Contact Info) Description 01/03/2024 Travel Social History Tobacco Use Types Packs/Day Years Used Date Smoking Tobacco: Never Passive Smoke Exposure: Never Smokeless Tobacco: Never Alcohol Use Standard Drinks/Week Comments No 0 (1 standard drink = 0.6 oz pur e alcohol) [facility] Inpatient Questions Answer Date Recorded Does [...] 3:30 PM EST Office [place] [address] Tarik Henry MD [facility] [place] [address] 09/22/2024 7:00 AM EST [place] [address] Luis Michael Jr., MD [facility] [address] 09/22/2024 8:00 AM EST [place] [address] Luis Michael Jr., MD [facility] [address] documented as of this encounter Visit Diagnoses Not on filedocumented in this encounter Care Teams Casino Dealer Relationship Specialty Start Date End Date Janet Davey APRN PCP - General Family Medicine 07/13/20 02/10/24 documented as of this encounter
--- OUTSIDE RECORDS SUMMARY | 2024-07-20 18:26 | XMS_ITS | Encounter Summary ---
Author Organization [facility] [place] [address] Care Team Providers Care Merchandise Flow Associate Name Role Phone Janet Davey APRN Primary Care Provider [phone] Encounter Details Date Type Department Care Team (Latest Contact Info) Description 01/09/2024 Travel Social History Tobacco Use Types Packs/Day [...] 3:30 PM EST Office [place] [address] [facility] [place] [address] 09/22/2024 7:00 AM EST Appointment [place] [address] Luis Michael Jr., MD [facility] [place] [address] 09/22/2024 8:00 AM EST Office [place] [address] Luis Michael Jr., MD [facility] [place] [address] documented as of this encounter Visit Diagnoses Not on filedocumented in this encounter Care Teams Merchandise Flow Associate Relationship Specialty Start Date End Date Janet Davey APRN PCP - General Family Medicine 07/13/20 02/10/24 documented as of this encounter
--- OUTSIDE RECORDS SUMMARY | 2024-07-20 18:26 | XMS_ITS | Encounter Summary ---
Author Organization [facility] [place] [address] Care Team Providers Care Aluminum Welder Name Role Phone Janet Davey SACHA Primary Care Provider [phone] Encounter Details Date Type Department Care Team (Late st Contact Info) Description 10/25/2023 Telephone [place] [address] Milvia Yang PA [facility] [place] [address] Social History Tobacco Use Types Packs/Day Years Used Date Smoking Tobacco: Never Passive Smoke Exposure: Never Smokeless Tobacco: Never Alcohol Use Standard Drinks/Week Comments No 0 (1 standard drink = 0.6 oz pur e alcohol) [facility] Inpatient Questions Answer Date [...] encounter Miscellaneous Notes * Telephone Encounter - Angie Lindsey - 10/25/2023 3:09 PM EST Answered the safety questions for LT 1ST [facility] INJECTION and sent for batch. documented in this encounter Plan of Treatment Upcoming Encounters Date Type Department Care Team (Late st Contact Info) Description 08/07/2024 3:30 PM EST Office Visit Orthopaedics at [place] [phone] Tarik Henry MD [facility] [place] [address] 09/22/2024 7:00 AM EST Appointment [place] [address] Luis Michael Jr., MD [facility] [place] [address] 09/22/2024 8:00 AM EST Office Visit Urology at [place] [phone] Luis Michael Jr., MD [facility] [place] [address] documented as of this encounter Visit Diagnoses Not on filedocumented in this encounter Care Teams Aluminum Welder Relationship Specialty Start Date End Date Janet Davey APRN PCP - General Family Medicine 07/13/20 02/10/24 documented as of this encounter
--- OUTSIDE RECORDS SUMMARY | 2024-07-20 18:26 | XMS_ITS | Encounter Summary ---
Author Organization [facility] Address [facility] [place] [address] Care Team Providers Care Telecom Billing Analyst Name Role Phone Janet Davey APRN Primary Care Provider [phone] Reason for Visit * Reason Comments Medication Refill Encounter Details Date Type Department Care Team (Late st Contact Info) Description 09/14/2023 [place] [address] Tong Norman MD [facility] [place] [address] Vasomotor rhinitis Social History Tobacco Use Types Packs/Day Years Used Date Smoking Tobacco: Never Passive Smoke Exposure: Never Smokeless Tobacco: Never Alcohol Use Standard Drinks/Week Comments No 0 (1 standard drink = 0.6 oz pur e alcohol) [facility] Inpatient Questions Answer Date Recorded [...] 3:30 PM EST Office [place] [address] Tarik Henry MD [facility] [place] [address] 09/22/2024 7:00 AM EST Appointment Ultrasound at [place] [phone] Luis Michael Jr., MD [facility] [address] 09/22/2024 8:00 AM EST Office Visit Urology at [place] [phone] Luis Michael Jr., MD [facility] [place] [address] documented as of this encounter Visit Diagnoses Diagnosis Vasomotor rhinitis Allergic rhinitis, cause unspecified documented in this encounter Care Teams Telecom Billing Analyst Relationship Specialty Start Date End Date Janet Davey APRN PCP - General Family Medicine 07/13/20 02/10/24 documented as of this encounter
--- OUTSIDE RECORDS SUMMARY | 2024-07-20 18:26 | XMS_ITS | Encounter Summary ---
[place] [address] Care Team Providers Care Tissue Technologist Name Role Phone Janet Davey APRN Primary Care Provider [phone] Reason for Visit * Reason Onset Date Comments Results 09/25/[address] Encounter Details Date Type Department Care Team (Late st Contact Info) Description 09/25/2023 [place] [phone] Monroe Ray, RN Results (24 hour urine test) Social History Tobacco Use Types Packs/Day Years Used Date Smoking Tobacco: Never Passive Smoke Exposure: Never Smokeless Tobacco: Never Alcohol Use Standard Drinks/Week Comments No 0 (1 standard drink = 0.6 oz pur e alcohol) [facility] Inpatient Questions Answer Date Recorded Does [...] encounter Miscellaneous Notes * Telephone Encounter - Monroe Ray RN - 09/25/2023 12:13 PM EST Spoke to patient and discussed her 24 urine test results. Advised patient the results were not in her chart but KEON Bro sent a message to the urology secretary receptionist last week asking to check if the results came in. I advised her that I would send another message asking for assistance from them to see if we did get the results or not. * Telephone Encounter - Monroe Ray RN - 09/25/2023 12:13 PM EST Copied from CRM #[id number]. Topic: Specialty Dept CRMs - Generic Call >> Sep 25, 2023 8:58 AM Christa Davidson wrote: Specialist: Fernanda Relationship (if other than patient-full name): Self Reason for Call: Patient is calling to check on their 24 urine test results. Please see patient message dated 09/20/23. Please call to advise. documented in this encounter Plan of Treatment Upcoming Encounters Date Type Department Care Team (Late st Contact Info) Description 08/07/2024 3:30 PM EST Office [place] [address] Tarik Henry MD [facility] [place] [address] 09/22/2024 7:00 AM EST Appointment Ultrasound at [place] [phone] Luis Michael Jr., MD [facility] [place] [address] 09/22/2024 8:00 AM EST [place] [address] Luis Michael Jr., MD [facility] [place] [address] documented as of this encounter Visit Diagnoses Not on filedocumented in this encounter Care Teams Tissue Technologist Relationship Specialty Start Date End Date Janet Davey APRN PCP - General Family Medicine 07/13/20 02/10/24 documented as of this encounter
--- OUTSIDE RECORDS SUMMARY | 2024-07-20 18:26 | XMS_ITS | Encounter Summary ---
[place] [address] Care Team Providers Care Well Reactivator Operator Name Role Phone Janet Davey APRN Primary Care Provider [phone] Reason for Referral * Diagnostic Test (Routine) - Closed Specialty Diagnoses / Procedures Referred By Contac t Referred To Contact Radiology Diagnoses Right wrist tendonitis Procedures MRI Wrist wo Contrast Left (Generic) Milvia Yang PA [facility] [address] [place] [address] [place] [address] Referral ID Status Reason Start Date Expiration Date V isits Requested Visits Authorized [id number] Closed Specialty Service Requested 01/14/2024 03/13/2024 1 1 * Occupational Therapy (Routine) - Closed Specialty Diagnoses / Procedures Referred By Contac t Referred To Contact Occupational Therapy Diagnoses Right wrist tendonitis Milvia Yang PA [facility] [address] [place] [address] Unknown None Referral ID Status Reason Start Date Expiration Date V isits Requested Visits Authorized [id number] Closed Evaluate and Treat Non DH PCP 01/09/2024 07/07/2024 12 12 Reason for Visit * Reason Comments Follow-up RE-EVAL BILAT WRIST/ BILAT THUMB PAIN Encounter Details Date Type Department Care Team (Latest Contact Info) Description 01/09/2024 4:30 PM EDT Office [place] [address] Milvia Yang PA [facility] [address] [place] [address] Primary osteoarthritis of both first carpometacarpal joints; Right wrist tendonitis Social History Tobacco Use [...] - - Weight 61.2 kg (135 lb) 01/09/2024 2:53 PM EDT Height 172.7 cm (5' 8) 01/09/2024 2:53 PM EDT Body Mass Index 20.53 01/09/2024 2:53 PM EDT documented in this encounter Progress Notes * Milvia Yang PA - 01/09/2024 4:30 PM EDT Images from the original note were not included. PATIENT NAME: Stacy Albright AGE: 58 y.o. MR#: [id number] DATE OF VISIT: 01/09/2024 DATE OF INJURY/ONSET: several years CHIEF COMPLAINT: [...] She reports trying hand therapy including iontophoresis with transient relief. She continues to wear bilateral base of thumb splints. Medications and Allergies were reviewed in eD-H [...] performed by Luis Michael Jr., MD at [facility] OSC PRO CYSTOSCOPY, INSERT URETERAL STENT Left 03/15/2023 CYSTO, STENT PLACEMENT (WRVU 2.82) performed by Luis Michael Jr., MD at [facility] OSC PRO CYSTOSCOPY, TX URETERAL STRICTURE Left 03/15/2023 CYSTOURETHROSCOPY, BALLOON DILATION OF URETERAL STRICTURE (WRVU 5.35) performed by Luis Michael Jr., MD at [facility] OSC PRO CYSTOURETHROSCOPY, FULGUR <.5CM LESN N/A 04/18/2017 CYSTO, FULGURATION\BLADDER LESION\W\WO BX\LESS THAN 0.5CM (WRVU 4.05) performed by Luis Michael Jr., MD at [facility] MAIN OR SHOULDER SURGERY Right 07/2019 XR FLUORO INJECTION DRAINAGE JOINT SM LEFT Left 09/12/2023 XR Fluoro Guided Joint Injection Small Left 09/12/2023 Aylin Ron PA [facility] RAD XRAY XR FLUORO INJECTION DRAINAGE JOINT SM RIGHT Right 09/12/2023 XR Fluoro Guided Joint Injection Small Right 09/12/2023 Aylin Ron PA [facility] RAD XRAY FAMILY HX: Family History [...] facility No Rate overall condition today 5 No data to display No data to [...] ecchymosis, abrasions. Palpation: Tender to palpation over left ECU tendon, basal joint, flexor tendons from the mid palm to the mid forearm. Nontender to palpation of the first extensor compartment. ROM: Full finger and wrist range of motion. Neurovascular: SGILT R/M/U/Ax nerve distributions; AIN/PIN/U nerves fire; 2+ radial pulse ASSESSMENT: #1- Bilateral basal joint arthritis #2- Left ECU tendinitis #3- Bilateral flexor tendinitis PLAN: -The patient was counseled that her volar wrist and forearm pain is most likely due to to flexor tendinitis. Given her failed treatment with conservative management, I recommend an MRI for further evaluation. - The patient was offered conservative management [...] proceed with left basal joint steroid injection as well as soft bracing which was ordered today. -The patient was counseled that her ulnar-sided wrist pain is most consistent with ECU tendinitis for which I recommend a referral to hand therapy for iontophoresis dexamethasone and nocturnal wrist splinting. - OT: nocturnal wrist splinting and iontophoresis with Dexamethasone - She will return for follow up after her MRI for results review - The patient understands to contact us if they have any other questions or concerns. Milvia Yang PA-C Department of Orthopaedics [facility] documented in this encounter Plan of Treatment Upcoming Encounters Date Type Department Care Team (Late st Contact Info) Description 08/07/2024 3:30 PM EST Office [place] [address] Tarik Henry MD [facility] [address] [place] [address] 09/22/2024 7:00 AM EST Appoint[place] [address] Luis Michael Jr., MD [facility] [place] [address] 09/22/2024 8:00 AM EST [place] [address] Luis Michael Jr., MD [facility] [place] [address] Scheduled Referrals Name Type Priority Associated Diagnoses Order Schedule Referral to Occupational Therapy Outpatient Referral Routine Right wrist tendonitis Ordered: 01/09/2024 documented as of this encounter Results * MRI Wrist wo Contrast Left (Generic) (02/01/2024 2:35 PM EDT) [employer] WORKSTATION ID [id number] [facility] Anatomical Region Laterality Modality Wrist Left Magnetic [...] have questions please contact the health resident care manager rn that requested your imaging first. ? Electronically signed by: Romy Waller MD, [facility] ([phone]), at 02/03/2024 9:16 AM Narrative 02/03/2024 9:16 AM EDT EXAMINATION: MRI [...] who have questions please contactthe health resident care manager rn that requested your imaging first. Electronically signed by: Romy Waller MD, [facility]([phone]), at 02/03/2024 9:16 AM Vito Muñoz MD IMG MRI ORDERABLES documented in this encounter Visit Diagnoses Diagnosis Primary osteoarthritis of both first carpometacarpal joints Primary localized osteoarthrosis, hand Right wrist tendonitis Right wrist tendonitis documented in this encounter Care Teams Well Reactivator Operator Relationship Specialty Start Date End Date Janet Davey APRN PCP - General Family Medicine 07/13/20 02/10/24 documented as of this encounter
--- OUTSIDE RECORDS SUMMARY | 2024-07-20 18:26 | XMS_ITS | Encounter Summary ---
Author Organization [facility] Address [facility] [place] [address] Care Team Providers Care Personal Property Appraiser Name Role Phone Janet Davey APRN Primary Care Provider [phone] Reason for Visit * Reason Onset Date Comments Appointment 11/21/2023 Encounter Details Date Type Department Care Team (Late st Contact Info) Description 11/21/2023 [place] [address] Milvia Yang PA [facility] [place] [address] Appointment Social History Tobacco Use Types Packs/Day Years Used Date Smoking Tobacco: Never Passive Smoke Exposure: Never Smokeless Tobacco: Never Alcohol Use Standard Drinks/Week Comments No 0 (1 standard drink = 0.6 oz pur e alcohol) [facility] Inpatient Questions Answer Date Recorded Does Anyone [...] * Telephone Encounter - Angie Lindsey - 12/20/2023 4:39 PM EDT Patient decided to have re-eval with Milvia, patient scheduled * Telephone Encounter - Alisia Reyna - 12/20/2023 1:39 PM EDT Patient calling to let us know she was asking for the tendonitis shot that is done in office not the fluoro injection. Is that something we do? * Telephone Encounter - Krishna Jones - 11/21/2023 9:37 AM EDTSummary: Fluoro Safety Questions Complete Fluoro Safety Questions Complete and sent for batch scheduling documented in this encounter Plan of Treatment Upcoming Encounters Date Type Department Care Team (Late st Contact Info) Description 08/07/2024 3:30 PM EST Office Visit Orthopaedics at [place] [phone] Tarik Henry MD [facility] [place] [address] 09/22/2024 7:00 AM EST Appointment Ultrasound at [place] [phone] Luis Michael Jr., MD [facility] [address] 09/22/2024 8:00 AM EST Office Visit Urology at [place] [phone] Luis Michael Jr., MD [facility] [address] documented as of this encounter Visit Diagnoses Not on filedocumented in this encounter Care Teams Personal Property Appraiser Relationship Specialty Start Date End Date Janet Davey APRN PCP - General Family Medicine 07/13/20 02/10/24 documented as of this encounter
--- OUTSIDE RECORDS SUMMARY | 2024-07-20 18:26 | XMS_ITS | Encounter Summary ---
[place] [address] Care Team Providers Care House Servant Name Role Phone Janet Davey APRN Primary Care Provider [phone] Reason for Referral * Consultation (Routine) - Authorized Specialty Diagnoses / Procedures Referred By Alberta mendosa Referred To Contact Gynecology Oncology Diagnoses Family history of malignant neoplasm of ovary Interventional Radiology Technologist Onc Janet Davey APRN [facility] [place] [address] [facility] Central Office Maintainer [address] [place] [phone] Referral ID Status Reason Start Date Expiration Date Visits Requested Visits Authorized [id number] Authorized Consult, Test & Treat PCP Updated and/or Approved 12/24/2023 12/23/2024 6 6 Encounter Details Date Type Department Care Team (Latest Contact Info) Description 12/24/2023 Transcribe Orders eDH Incoming Referrals [phone] Janet Davey APRN [address] [place], [place] [id number] Family history of malignant neoplasm of ovary [...] 3:30 PM EST Office Visit Orthopaedics at [place] [phone] [facility] [place] [address] 09/22/2024 7:00 AM EST Appointment Ultrasound at [place] [address] Luis Michael Jr., MD [facility] [place] [address] 09/22/2024 8:00 AM EST Office Visit Urology at [place] [address] Luis Michael Jr., MD [facility] [place] [address] Scheduled Referrals Name Type Priority Associated Diagnoses Orde r Schedule Referral to Ob-Interventional Radiology Technologist Outpatient Referral Routine Family history of malignant neoplasm of ovary Ordered: 12/24/2023 documented as of this encounter Visit Diagnoses Diagnosis Family history of malignant neoplasm of ovary documented in this encounter Care Teams House Servant Relationship Specialty Start Date End Date Janet Davey APRN PCP - General Family Medicine 07/13/20 02/10/24 documented as of this encounter
--- OUTSIDE RECORDS SUMMARY | 2024-07-20 18:27 | XMS_ITS | Encounter Summary ---
Author Organization [facility] [place] [address] Care Team Providers Care Professor Of Archaeology Name Role Phone Janet Davey APRN Primary Care Provider [phone] Encounter Details Date Type Department Care Team (Latest Contact Info) Description 11/13/2022 Travel Social History Tobacco Use Types Packs/Day Years Used Date Smoking Tobacco: Never Smokeless Tobacco: Never Alcohol Use Standard Drinks/Week Comments No 0 (1 standard drink = 0.6 oz pur e alcohol) Sex and Gender Information Value Date Recorded Sex Assigned at Female 01/29/2022 12:45 PM EDT Gender Identity Female 03/23/2024 9:08 AM EDT Sexual Orientation Straight 03/23/2024 9: 08 AM EDT documented as of this encounter Plan of Treatment Upcoming Encounters Date Type Department Care Team (Late st Contact Info) Description 08/07/2024 3:30 PM EST Office [place] [phone] Tarik Henry MD [facility] [place] [address] 09/22/2024 7:00 AM EST Appointment [place] [phone] Luis Michael Jr., MD [facility] [place] [place] [address] 09/22/2024 8:00 AM EST Office [place] [address] Luis Michael Jr., MD [facility] [place] [address] documented as of this encounter Visit Diagnoses Not on filedocumented in this encounter Care Teams Professor Of Archaeology Relationship Specialty Start Date End Date Janet Davey APRN PCP - General Family Medicine 07/13/20 02/10/24 documented as of this encounter
--- OUTSIDE RECORDS SUMMARY | 2024-07-20 18:27 | XMS_ITS | Encounter Summary ---
Author Organization [facility] [place] [address] Care Team Providers Care Yard Switch Operator Name Role Phone Janet Davey APRN Primary Care Provider [phone] Reason for Visit * Auth/Cert (Routine) Specialty Diagnoses / Procedures Referred By Alberta t Referred To Contact Diagnoses stone Procedures PRO CYSTO/URETEROSCOPY W/LITHOTRIPSY INC INDWELLING STENT INSERTION CYSTOURETEROSCOPY,DIAGNOSTI C,W/ LITHOTRIPSY INC. INSERTION OF INDWELLING URETERAL STENT (WRVU 8) MODIFIER HOLMIUM LASER Ferdinand Michael Jr., MD [facility] [place] [address] [facility] Referral ID Status Reason Start Date Expiration Date Visits Re quested Visits Authorized [id number] 1 1 Encounter Details Date Type Department Care Team (Late st Contact Info) Description 03/15/2023 8:45 AM EDT - 03/15/2023 11:06 AM EDT Surgery [facility] [place] [address] Ferdinand Michael Jr., MD [facility] [place] [address] CYSTOURETHROSCOPY WITH URETEROSCOPY, W\REMOVAL, MANIPULATION OF CALCULUS (WRVU 6.75) Social History Tobacco Use Types Packs/Day Years [...] Sign Reading Time Taken Comments Blood Pressure 128/60 03/15/2023 11:00 AM EDT Pulse 49 03/15/2023 11:00 AM EDT Temperature 35.5 ??C (95.9 ??F) 03/15/2023 10:16 AM E DT Respiratory Rate 16 03/15/2023 11:00 AM EDT Oxygen Saturation 100% 03/15/2023 11:00 AM EDT Inhaled Oxygen Concentration - - Weight 63.5 kg (140 lb) 03/15/2023 7:57 AM EDT Height 172.7 cm (5' 8) 03/15/2023 7:57 AM EDT Body Mass Index 21.29 03/15/2023 7:57 AM EDT documented in this encounter Discharge Instructions * Discharge Instructions* Cece Cedillo RN - 03/15/2023 8:17 AM EDT General Anesthesia Discharge Instructions Go home and rest. You may be sleepy for several hours. Take it easy as sudden position changes may cause nausea and/or dizziness. Use caution on stairs. Do not smoke if you are alone. Follow a light to regular diet as tolerated today. If nausea occurs, start with clear liquids, and progress slowly to a regular diet. Do not drive, operate machinery, drink alcoholic beverages or make any legal decisions after havinggeneral anesthesia. The medications given change your reaction time and alter your judgement. IV site -- slight redness is normal, you can use warm compresses. If tenderness and redness increases or foul drainage occurs, please contact your M.D. Patients who have had endotracheal tubes/LMA (tubes used by the anesthesia staff to ensure a safe airway during your operation) may have a sore throat. This is normal and cold liquids or soothing lozenges will help ease this discomfort. Narcotic pain medications can cause constipation, please ask the surgeons office what they recommend for prevention of this. Some non-pharmaceutical means of constipation prevention include increasing intake of fluids, eating more fruits and vegetables as well as fruit juices. If you are uncomfortable and/or unable to urinate within 8 hours of discharge and it is before 5 pm, call your physician. If it is after 5pm go to the closest emergency room or call the hospital varnishing unit operator at [phone] and ask for physician operations processor covering for your physician. Questions or problems after 5pm or on a weekend: Call the [facility] varnishing unit operator at and ask for the physician operations processor covering for your doctor. * Patient Instructions* Reagan Dale MD - 03/15/2023 10:16 AM EDT Urology Discharge Instructions after Cystoscopy and Ureteroscopy Call your doctor for: Fevers greater than 101.3F Severe nausea or vomiting Increasing pain not controlled by pain medications Inability to urinate before 5 PM weekdays for urgent concerns after 5 PM and weekends. Ask for the on-call Urology resident Activity level: Increased activity may lead to more stent discomfort and more blood in your urine. Your activity level will be determined by your comfort level. Diet: You may resume your regular diet as tolerated. Drink plenty of water, at least 2 liters (64 oz) per day or enough to make urine clear or pale yellow. Driving: No driving while still taking opioid pain medications (wait at least 6- 8 hours since last dose). No driving if you are still sore from surgery as it may limit your ability to react quickly if necessary. Shower/Bath: No restrictions. Stent Discomfort: Most patients experience some degree of discomfort related to their ureteral stent. Symptoms include flank pain (increased during urination), frequency and urgency of urination, burning or pain in the bladder/urethra with urination, pelvic discomfort, and blood in the urine. Your symptoms may be exacerbated by activity. To manage your stent symptoms, try the following: - Drink plenty of fluid (~2 liters per day or enough to make urine clear or pale yellow) - Take acetaminophen (Tylenol), up to 650mg every 4 hours (regular strength) or 1000mg every 6 hours (extra strength) - Take ibuprofen (Motrin, Advil, or generic), up to 600-800mg every 8 hours unless otherwise instructed by your physician - Do not exceed 4000mg acetaminophen in 24 hours. Do not exceed 3200mg ibuprofen in 24 hours. - Take Flomax daily until your stent is removed Follow up: - An appointment will be scheduled in about 5-7 days for stent removal in the Urology clinic. Please call [phone] if you do not receive your appointment. Future Appointments Date Time Provider Department Center 03/27/2023 10:00 AM SCHEDULE 1, PFT PFT [facility] 03/27/2023 10:30 AM Tong Norman MD [facility] It is important to remember that your ureteral stent cannot stay in place permanently. If it remains in place too long it may become encrusted with stone and require additional surgery to remove it. Please call our office if you do not receive your appointment or if you need to reschedule. documented in this encounter Medications at Time [...] azelastine (ASTELIN) 137 mcg (0.1 %) Aerosol, Upson as needed. 0 06/17/2017 SUMAtriptan (IMITREX) 100 mg Tablet as needed for Migraine. 1 04/13/2016 hydrocortisone (WESTCORT) 0.2 % Cream Apply topically as needed. 07/25/2015 multivitamin (THERAGRAN) tablet Take 1 tablet by mouth daily. montelukast (SINGULAIR) 10 mg tablet Take 10 mg by mouth daily as needed. 12/07/2010 albuterol (ACCUNEB) 0.63 mg/3 mL nebulizer solution 08/24/2010 tamsulosin (Flomax) 0.4 mg capsule Take 1 capsule by mouth daily. 90 tablet 03/15/2023 02/19/2024 estradioL 0.1 mg/24 hr Patch Semiweekly Change 1 patch on the skin twice a week. 8 patch 12 01/14/2023 03/11/2024 hydrOXYzine (Atarax) 25 mg tablet daily. 11/15/2022 10/02/2023 levonorgestreL (Mirena) 21 mcg/24 hours (8 yrs) 52 mg IUD 1 each by Intrauterine route Continuous (Device). Placed 9/6/16 02/18/2024 hydroCHLOROthiazide (MICROZIDE) 12.5 mg Capsule Take 1 capsule by mouth daily. 90 capsule 3 10/10/2022 07/04/2023 ipratropium (ATROVENT) 21 mcg (0.03 %) Upson, Non-AerosolIndication s:Vasomotor rhinitis 2 sprays by Nasal route 2 times daily. 30 mL 5 07/25/2022 09/16/2023 omeprazole (PriLOSEC) 20 mg Capsule, Delayed Release(E.C.) as needed. 01/18/20222022 cyclobenzaprine (Flexeril) 5 mg Tablet TK 1 T PO TID PRN 09/08/2019 03/27/2023 documented as of this encounter Progress Notes * Candace Moralez RN - 03/15/2023 11:51 AM EDT Pt arrived to PACU at 1013. Woke shortly after and complained of nausea-restless and heaving. IV compazine and fluids given with good effect. Voided prior to dc. IV toradol given for discomfort priorto dc with good effect. O2 97-100% on room air, no c/o shortness of breath after ambulation to BR. Discharge instructions and medications reviewed with patient and friend. All questions answered andwritten copy sent home with patient. Patient wheeled to car for discharge accompanied by [facility] staff member. documented in this encounter H&P Notes * Reagan Dale MD - 03/15/2023 8:27 AM EDT Images from the original note were not included. Urology PreOp H&P Stacy Albright is a 57 y.o. female with history of nonobstructing 4mm left renal stone here for left URS/LL. Pre-op urine culture:No growth No changes to medications, no fevers, chills, headaches, chest pain, new cough, nausea, emesis, constipation, diarrhea, difficulty urinating. Denies recent hospitalization. PMH: Past Medical History: Diagnosis Date Abnormal glandular Papanicolaou smear of cervix age 15 Asthma COVID-19 11/2021 Gastric acidity possible ulcer History of nephrolithiasis Memory difficulties 2017 Migraines Osteoporosis Raynaud's disease Shoulder pain R frozen shoulder and rotator cuff repair PSH: Past Surgical History: Procedure Laterality Date CREATED BY INTERFACE Cathy(MSUROL) Procedure Date: 01/16/2008 KNEE SURGERY 03/01/14 Right knee; patella surgery LITHOTRIPSY PRO CYSTOURETHROSCOPY, FULGUR <.5CM LESN N/A 04/18/2017 CYSTO, FULGURATION\BLADDER LESION\W\WO BX\LESS THAN 0.5CM (WRVU 4.05) performed by Ferdinand Michael Jr., MD at [facility] MAIN OR SHOULDER SURGERY Right 07/2019 No current facility-administered medications on file prior to encounter. Current Outpatient Medications on File Prior to Encounter Medication Sig Dispense Refill sertraline (Zoloft) 25 mg tablet Take 25 mg by mouth daily. estradioL 0.1 mg/24 hr Patch Semiweekly Change 1 patch on the skin twice a week. 8 patch 12 hydrOXYzine (Atarax) 25 mg tablet TAKE ONE-HALF TO ONE BY MOUTH EVERY 6 HOURS NEEDED FOR ANXIETYAND ONE TO TWO TABLETS AT BEDTIME FOR SLEEP estradioL (ESTRACE) 0.01 % (0.1 mg/gram) Cream Place 2 g vaginally twice a week. 42.5 g 12 levonorgestreL (Mirena) 21 mcg/24 hours (8 yrs) 52 mg IUD 1 each by Intrauterine route Continuous (Device). Placed 05/01/16 hydroCHLOROthiazide (MICROZIDE) 12.5 mg Capsule Take 1 capsule by mouth daily. 90 capsule 3 ipratropium (ATROVENT) 21 mcg (0.03 %) Upson, Non-Aerosol 2 sprays by Nasal route 2 times daily. 30mL 5 Symbicort 160-4.5 mcg/actuation HFA Aerosol Inhaler Inhale 1 puff into the lungs 2 times daily. Mayalso inhale 1 puff every 4 hours as needed (Shortness of breath, cough or wheezing (up to 4 puffs total daily)). 1 each 0 ondansetron (Zofran) 4 mg Tablet Take 4 mg by mouth every 8 hours as needed. omeprazole (PriLOSEC) 20 mg Capsule, Delayed Release(E.C.) as needed. ProChamber Spacer USE DIRECTED WITH [...] acyclovir (ZOVIRAX) 200 mg Capsule as needed. cyclobenzaprine (Flexeril) 5 mg Tablet TK 1 T PO TID PRN galantamine (RAZADYNE) 12 mg Tablet 12 mg 2 times daily. 0 memantine (NAMENDA) 5 mg Tablet 5 mg 2 times daily. 0 azelastine (ASTELIN) 137 mcg (0.1 %) Aerosol, Upson instill 1 spray into each nostril twice a day 0 SUMAtriptan (IMITREX) 100 mg Tablet as needed for Migraine. 1 hydrocortisone (WESTCORT) 0.2 % Cream Apply topically as needed. multivitamin (THERAGRAN) tablet Take 1 tablet by mouth daily. montelukast (SINGULAIR) 10 mg tablet Take 10 mg by mouth every morning. albuterol (ACCUNEB) 0.63 mg/3 mL nebulizer solution Allergies Allergen Reactions Grass Pollen-[place], Standard Other (See Comments) Runny nose, itching, sneezing Mold Extracts Other (See Comments) Sneezing and runny nose There were no vitals filed for this visit. Exam: General: Alert and oriented x4 Heart: RRR, S1S2 Lungs: CTAB, No audible wheezing Abdomen: Soft, non-tender/distended Extremities: Warm, no edema No results found for this or any previous visit (from the past 24 hour(s)). Imaging: Assessment/Plan Proceed with scheduled procedure. -- Operative consent signed, reviewed and all questions answered -- Abx: Ancef operations processor to OR -- VTE ppx: SCDs -- Dispo: Plan for same day procedure Procedure(s): CYSTOURETEROSCOPY,DIAGNOSTIC,W/ LITHOTRIPSY INC. INSERTION OF INDWELLING URETERAL STENT (WRVU 8) MODIFIER HOLMIUM LASER Reagan Dale MD documented in this encounter Miscellaneous Notes * Brief Op Note - Ferdinand Michael Jr., MD - 03/15/2023 10:25 AM EDT Brief Operative Note Patient Name: Stacy Albright : [id number] MR#: [id number] Case Date: 03/15/2023 Surgeon: Surgeon(s) and Role: * Ferdinand Michael Jr., MD - Primary * Reagan Dale MD - Resident - Assisting Preoperative diagnosis: left lower pole renal stone Postoperative diagnosis: left lower pole renal stone Procedure(s) (LRB): CYSTOURETHROSCOPY WITH UTETEROSCOPY, W\REMOVAL, MANIPULATION OF CALCULUS (WRVU 6.75) (Left) CYSTOURETHROSCOPY, BALLOON DILATION OF URETERAL STRICTURE (WRVU 5.35) (Left) CYSTO, STENT PLACEMENT (WRVU 2.82) (Left) Anesthesia: General Findings: narrowed distal left ureter could initially only accept pediatric 4.5fr needlescope ureteroscope, dilated to allow passage of standard 6.9fr ureteroscope. Ureter remained too narrow to allow passage of flexible ureteroscope, thus distal ureter dilated with tapered 9fr inner dilator of acce ss sheath, finally allowing passage of flex x ureteroscope. Kidney fully inspected, two small left lower pole renal stones were identified, grasped, and extracted. Fluoroscopically and endoscopicallystone free at procedure conclusion. Complications: none evident Intake: Intraprocedure Crystalloid Total Intake lactated ringers infusion 900.00 mL ceFAZolin (Ancef) 2 g vial attach to sodium chloride 0.9% 100 mL Mini-Bag Plus 100.00 mL Total Intake 1000 mL Output Blood Loss 1 mL Total Output 1 mL Net Net Volume 999 mL Transfusion No data found in the last 1 encounters. Output: Estimated Blood Loss: 1 mL Urine Output:: (no urine output recorded) Other Output: (no other output recorded) Drains: 6fr 26cm Tria left ureteral stent (plan 10-14 day dwell time) Specimens removed during surgery: urine for culture; stone for analysis Disposition: awakened from anesthesia, extubated and taken to the recovery room in a stable condition, having suffered no apparent untoward event. Condition: doing well without problems Attestation: Case Date: 03/15/2023 I was present and I participated during the entire procedure. (Please see the Surgical Encounter Summary for any Implant and Specimen details pertinent to this patient.) * Op Note - Reagan Dale MD - 03/15/2023 9:09 AM EDT [facility] Operative Note Patient Name: Stacy Albright : [id number] MR#: [id number] Case Date: 03/15/2023 Surgeon: Surgeon(s) and Role: * Ferdinand Michael Jr., MD - Primary * Reagan Dale MD - Resident - Assisting Preoperative diagnosis: left lower pole renal stone Postoperative diagnosis: left lower pole renal stone Procedure(s) (LRB): CYSTOURETHROSCOPY WITH UTETEROSCOPY, W\REMOVAL, MANIPULATION OF CALCULUS (WRVU 6.75) (Left) CYSTOURETHROSCOPY, BALLOON DILATION OF URETERAL STRICTURE (WRVU 5.35) (Left) CYSTO, STENT PLACEMENT (WRVU 2.82) (Left) Anesthesia: General Findings: narrowed distal left ureter could initially only accept pediatric 4.5fr needlescope ureteroscope, dilated to allow passage of standard 6.9fr ureteroscope. Ureter remained too narrow to allow passage of flexible ureteroscope, thus distal ureter dilated with tapered 9fr inner dilator of acce ss sheath, finally allowing passage of flex x ureteroscope. Kidney fully inspected, two small left lower pole renal stones were identified, grasped, and extracted. Fluoroscopically and endoscopicallystone free at procedure conclusion. Complications: none evident Intake: Intraprocedure Crystalloid Total Intake lactated ringers infusion 900.00 mL ceFAZolin (Ancef) 2 g vial attach to sodium chloride 0.9% 100 mL Mini-Bag Plus 100.00 mL Total Intake 1000 mL Output Blood Loss 1 mL Total Output 1 mL Net Net Volume 999 mL Transfusion No data found in the last 1 encounters. Output: Estimated Blood Loss: 1 mL Urine Output:: (no urine output recorded) Other Output: (no other output recorded) Drains: 6fr 26cm Tria left ureteral stent (plan 10-14 day dwell time) Specimens removed during surgery: urine for culture; stone for analysis Disposition: awakened from anesthesia, extubated and taken to the recovery room in a stable condition, having suffered no apparent untoward event. (Please see the Surgical Encounter Summary for any Implant and Specimen details pertinent to this patient.) HPI/Surgical Indications: Stacy Albright is a 57 y.o. female with history of nonobstructing 4mm left renal stone here for left URS/LL. Pre-op urine culture:No growth No changes to medications, no fevers, chills, headaches, chest pain, new cough, nausea, emesis, constipation, diarrhea, difficulty urinating. Denies recent hospitalization. Procedure Description: The patient was identified in the pre-operative holding area. Consent was verified. The correct side of the procedure was marked. The patient was taken to the operating room and placed supine on the operating table. General anesthesia was induced. The patient was then moved to the dorsal lithotomy position and prepped and draped in the usual sterile fashion. A timeout was performed involving all members of the OR team confirming the patient's identity and planned procedure. Preoperative antibiotics were administered. A 22Fr rigid cystoscope was inserted into the bladder. 360 degree cystoscopy revealed normal-appearing bladder mucosa without mucosal lesions. A 5 St Helenian Pollack catheter was inserted into the left ureteral orifice and contrast was instilled for retrograde pyelogram which did not reveal any fillingdefects. A Glidewire was then introduced through the Pollack catheter and the catheter was removed.Cystoscope was removed. A semi-rigid ureteroscope was introduced and unable to be advanced past a narrow portion of the distal ureter, a second wire was introduced. A needle scope was then used to navigate the ureter over the second wire. The ureter was navigated easily to the UPJ, no ureteral stones were noted. The needle scope was removed and the semi-rigid ureteroscope was then re- introduced to further dilate the ureter, then removed. The inner portion of a 9/11Fr access sheath was introduced under fluoroscopy to further dilate the ureter. It would not accommodate the 11 St Helenian outer sheath. Next, the Flex-X ureteroscope was inserted and navigated to the renal pelvis over the wire with some resistance at the narrow distal ureter. The stone was visualized in one of the calyces. This wasable to be extracted with the Tai basket, along with a smaller adjoining stone; these were sent to Pathology as a specimen. Retrograde pyelography was performed to assist in inspecting the entire pyelocaliceal system. No further stones were found. The ureteroscope was slowly removed to inspect the ureter. We elected to leave a stent due to ureteral edema and instrumentation to dilate the narrow distal ureter. The cystoscope was backloaded over the wire, and a 6 Fr x 26 cm ureteral stent was inserted over the wire. Theproximal coil was visualized on fluoroscopy to be within the renal pelvis, and the distal coil was seen with direct visualization in the bladder. The bladder was emptied. The cystoscope was removed. The patient tolerated the procedure well and was awakened from anesthesia with no adverse events. The patient was taken to the recovery area in stable condition. Dr. Michael, the attending surgeon, was present for the entire procedure. Surgical Infection Prevention Bundle Used? N/A Associated attestation - Ferdinand Michael Jr., MD - 03/15/2023 3:49 PM EDT Attestation: Case Date: 03/15/2023 I was present and I participated during the entire procedure. FERDINAND MICHAEL JR, MD 03/15/2023 documented in this encounter Plan of Treatment Upcoming Encounters Date Type Department Care Team (Late st Contact Info) Description 08/07/2024 3:30 PM EST Office [place] [phone] Tarik Henry MD [facility] [place] [address] 09/22/2024 7:00 AM EST [place] [phone] Ferdinand Michael Jr., MD [facility] [place] [address] 09/22/2024 8:00 AM EST [place] [address] Ferdinand Michael Jr., MD [facility] [place] [address] documented as of this encounter Procedures Procedure Name Priority Date/Time Associated Diagnosis Comments XR FLUORO NO RAD <1HR - OR USE Routine 03/15/2023 10:31 AM EDT KIDNEY STONE ANALYSIS Routine 03/15/2023 10:00 AM EDT Cystoscopy, Insert Ureteral Stent (28556) 03/15/2023 8:49 AM EDT stone Cystoscopy, Tx Ureteral Stricture (17002) 03/15/2023 8:49 AM EDT stone Cysto/Uretero/Pyelo scopy, Calculus Tx (81781) 03/15/2023 8:49 AM EDT stone documented in this encounter Results * XR Fluoro No Rad <1Hr - OR Use (03/15/2023 10:31 AM EDT) Narrative Dicom, Auditing User - 03/15/2023 10:31 AM EDT This exam is auto-finalizing. No interpretation was done. Ferdinand Michael Jr., MD IMG FLUORO ORDERAB LES * Kidney Stone Analysis (03/15/2023 10:00 AM EDT) Kidney Stone Analysis (MAY) Test ? Result ?Flag ??Unit ??RefValue ------- Kidney Stone Analysis ??Source: ?Left Renal ??Stone Interpretation ? SEE COMMENTS ?70% Calcium phosphate (apatite). 20% Calcium oxalate ?dihydrate. ??10% Calcium oxalate monohydrate. ??Result Comment ? SEE COMMENTS ?For stones containing calcium oxalate, calcium phosphate, ?and/or uric acid, a 24 hr urinary supersaturation test may ?help detect underlying risk factors for this type of stone ?formation and provide guidance for a stone prevention ?strategy. ? ---ADDITIONAL INFORMATION------- ?This test was developed and its performance characteristics ?determined by [facility] in a manner consistent with CLIA ?requirements. This test has not been cleared or approved by ?the U.S. Food and Drug Administration. ?Test Performed by: ?[facility] ?[address] [place] [address] ?Name Plate Stamping Machine Operator: Kirit Kaplan M.D. Ph.D.; CLIA# [id number] [facility] Calculus 03/15/2023 10:0 0 AM EDT 03/15/2023 11:34 AM EDT Narrative Resulting Agency Comment Spec In Lab Ferdinand Michael Jr., MD LAB SEND OUT ORDER [facility] [address] [place] [address] documented in this encounter Visit Diagnoses Not on filedocumented in this encounter Administered Medications Inactive Administered Medications - up to 3 most recent administrations Medication Order MAR Action Action Date Dose Rate Site iohexoL (Omnipaque) (300 mg/mL) solution PRN, Starting on Sat03/15/23 at 0938, Until Sat03/15/23 at 1351, Intra-Operative (Intra-Procedure), Routine Given 03/15/2023 9:38 AM EDT 50 mLs ketorolac (Toradol) (30 mg/mL) injection 15 mg 15 mg, Intravenous, ONCE, 1 dose, On Sat03/15/23 at 1045, PACU Recovery, Routine Given 03/15/2023 10:45 AM EDT 15 mg prochlorperazine (Compazine) (5 mg/mL) injection 5 mg 5 mg, Intravenous, EVERY 30 MIN PRN, 2 doses, Starting on Sat03/15/23 at 1007, Until Sat03/15/23 at 1122, Nausea, Vomiting, If multiple antiemetics ordered, use ondansetron first and if ineffective use prochlorperazine or haloperidoL second, PACU Recovery, Routine Given 03/15/2023 10:25 AM EDT 5 mg documented in this encounter Active and Recently Administered Medications Times are shown in EDT. Scheduled Medication Order 03/13/2023 03/14/2023 03/15/2023 ceFAZolin (Ancef) 2 g vial attach to sodium chloride 0.9% 100 mL Mini-Bag Plus (COMPLETED) 2 g, Intravenous, ORDER PROCESSOR TO O.R., 1 dose, On Sat03/15/23 at 0800, Administer over 30 Minutes, Indication for (Active or Suspected): Prophylaxis 903 (New Bag - Prov ider: Camron Murray, LEYLA) ketorolac (Toradol) (30 mg/mL) injection 15 mg (COMPLETED) 15 mg, Intravenous, ONCE, 1 dose, On Sat03/15/23 at 1045, PACU Recovery, Routine 1045 (Given - Provid er: Candace Moralez RN) Continuous Medication Order 03/13/2023 03/14/2023 03/15/2023 lactated ringers infusion (CANCELED) 1,000 mL, at 100 mL/hr, Intravenous, CONTINUOUS, Starting on Sat03/15/23 at 0800, Until Sat03/15/23 at 1122, Day of Surgery (Day of Procedure) 0848 (New Bag - Prov ider: Camron Murray CRNA)0958 (Anesthesia Volume Adjustment - Provider: Camron Murray CRNA) PRN Medication Order 03/13/2023 03/14/2023 03/15/2023 iohexoL (Omnipaque) (300 mg/mL) solution (CANCELED) PRN, Starting on Sat03/15/23 at 0938, Until Sat03/15/23 at 1351, Intra-Operative (Intra-Procedure), Routine 0938 (Given - Provid er: Ferdinand Michael Jr., MD - Comment: on field for prn use) prochlorperazine (Compazine) (5 mg/mL) injection 5 mg (CANCELED) 5 mg, Intravenous, EVERY 30 MIN PRN, 2 doses, Starting on Sat03/15/23 at 1007, Until Sat03/15/23 at 1122, Nausea, Vomiting, If multiple antiemetics ordered, use ondansetron first and if ineffective use prochlorperazine or haloperidoL second, PACU Recovery, Routine 1025 (Given - Provid er: Candace Moralez RN) No Frequency Medication Order 03/13/2023 03/14/2023 03/15/2023 acetaminophen (Ofirmev) 1,000 mg/100 mL (10 mg/mL) infusion 1 dose, Starting on Sat03/15/23 at 0919, Until Sat03/15/23 at 1351, ALONSO STRATTON (ANES): cabinet override 0930 (Due) documented in this encounter Care Teams Yard Switch Operator Relationship Specialty Start Date End Date Janet Davey APRN PCP - General Family Medicine 07/13/20 02/10/24 documented as of this encounter
--- OUTSIDE RECORDS SUMMARY | 2024-07-20 18:27 | XMS_ITS | Encounter Summary ---
Author Organization [facility] [place] [address] Care Team Providers Care Business Records Manager Name Role Phone Janet Davey APRN Primary Care Provider [phone] Encounter Details Date Type Department Care Team (Latest Contact Info) Description 07/29/2023 Travel Social History Tobacco Use Types Packs/Day Years Used Date Smoking Tobacco: Never Passive Smoke Exposure: Never Smokeless Tobacco: Never Alcohol Use Standard Drinks/Week Comments No 0 (1 standard drink = 0.6 oz pur e alcohol) PENDING SALE TO [facility] Inpatient Questions Answer Date Recorded Does [...] 3:30 PM EST Office [place] [address] Tarik Henry MD [facility] [place] [address] 09/22/2024 7:00 AM EST [place] [address] Luis Michael Jr., MD [facility] [place] [address] 09/22/2024 8:00 AM EST [place] [address] Luis Michael Jr., MD [facility] [place] [address] documented as of this encounter Visit Diagnoses Not on filedocumented in this encounter Care Teams Business Records Manager Relationship Specialty Start Date End Date Janet Davey APRN PCP - General Family Medicine 07/13/20 02/10/24 documented as of this encounter
--- OUTSIDE RECORDS SUMMARY | 2024-07-20 18:27 | XMS_ITS | Encounter Summary ---
Author Organization [facility] [place] [address] Care Team Providers Care Economic Analyst Name Role Phone Janet Davey APRN Primary Care Provider [phone] Encounter Details Date Type Department Care Team (Late st Contact Info) Description 02/19/2023 11:00 AM EDT [place] [address] Luis Michael Jr., MD [facility] [place] [address] Nephrolithiasis Social History Tobacco Use Types Packs/Day [...] Sign Reading Time Taken Comments Blood Pressure 117/76 02/19/2023 11:04 AM EDT Pulse 64 02/19/2023 11:04 AM EDT Temperature - - Respiratory Rate - - Oxygen Saturation - - Inhaled Oxygen Concentration - - Weight - - Height - - Body Mass Index - - documented in this encounter Progress Notes * Luis Michael Jr., MD - 02/19/2023 11:00 AM EDT Images from the original note were not included. HPI Ms. Stacy Albright is a pleasant 57 y.o. female who presents for urologic follow up regardingmixed CaOx nephrolithiasis. She is s/p SWL in 2007 and left ureterscopy in 07/2010. She had reported possible hematuria and requested to proceed with evaluation -- Microscopic u/a showed <1rbc/hpf. Cystoscopy revealed tiny raised lesion which was resected and 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 In 06/2019 renal ultrasound suggested possible punctate left nonobstructing renal stone. Follow-up ultrasound in 2019 showed no evidence of stone or hydronephrosis. At most recent visitin 2021 ultrasound suggested a 4 to 6 mm left lower pole stone. She opted to monitor. She requested to update metabolic evaluation with repeat 24-hour urine for mild hypercalciuria. We discussed trial of thiazide which she had declined. In the interval since her last visit, she has been well. She denies witnessed stone passage or suspected renal colic. Proceed with removal of the left lower pole stone if it persist. 02/18/2023 4:02 PM REVIEW OF SYSTEMS Constitutional None of [...] Genitourinary None of the above Other Symptoms Still dealing with Long Covid Past medical history: migraines, GERD, urolithiasis, osteoporosis Past surgical history: SWL, left ureteroscopy, multiple orthopedic surgeries. Family history: no history of urolithiasis Social History: no tobacco history; no alcohol use She reports her approximately 2 months ago. She cares for her grandchild and her parents Dietary History: 3-4 liters fluid intake/day; low sodium intake; moderate purine/animal protein intake; moderate oxalate intake; moderate dairy intake . Stone analysis: 90% calcium oxalate dihydrate and 10% calcium phosphate. Imaging studies: I independently reviewed the renal ultrasound from today, confirming approximately4 mm left lower pole renal stone. I we reviewed the prior ultrasound from March 2022 which had noted left lower pole stone, measured 6 mm at that time. There remains no hydronephrosis or hydroureter. Guide Cruise image noted below. IMPRESSION 1. Stable nonobstructing single 4 mm left inferior pole renal calculus. 2. No other sonographically evident nephrolithiasis, bilaterally, or collecting system dilatation. 3. Normal contour of the partially distended bladder. No bladder calculi. Electronically signed by: Genie Carrasco MD, Current (02/19/2023) Prior Impression/Plan: Mixed calcium oxalate nephrolithiasis 1) left nonobstructing renal stone. We again reviewed management options. We discussed that based on size if the stone were to migrate she could potentially spontaneously pass it without requiring intervention. We discussed the variable anticipated natural history of nonobstructing renal stones. Wereviewed management options of additional cross-sectional imaging to confirm stone burden, continued surveillance, preemptive surgical intervention including shockwave lithotripsy or ureteroscopy. Wediscussed relative risk, benefits, limitations of each. She expressed a strong interest in proceeding with left ureteroscopy to remove the left renal stonesuggested on ultrasounds. We specifically discussed risks of bleeding, infection, injury to kidney/ureter/bladder/urethra, surrounding structures, development of strictures, need for additional or staged procedures, inability to access or remove stone, and risks of anesthesia and risks of heart attack, stroke, or . With an understanding of the above, she would like to proceed with an attemptat left ureteroscopy with laser lithotripsy and possible left ureteral stent placement, and this will be scheduled for her at her convenience. I have asked her to call with any additional questions. 2) mild hypercalciuria. We previously discussed the role of thiazide to address hypercalciuria, as well as potential benefits and potential side effects. She had declined. We will revisit if there isevidence of increasing stone activity. documented in this encounter Plan of Treatment Upcoming Encounters Date Type Department Care Team (Late st Contact Info) Description 08/07/2024 3:30 PM EST [place] [address] Tarik Henry MD [facility] DR [place] [address] 09/22/2024 7:00 AM EST Appointment Ultrasound at [place] [phone] Luis Michael Jr., MD [facility] [place] [address] 09/22/2024 8:00 AM EST [place] [address] Luis Michael Jr., MD [facility] [place] [address] documented as of this encounter Procedures Procedure Name Priority Date/Time Associated Diagnosis Comments URINE CULTURE Routine 02/19/2023 11:00 AM EDT Nephrolithiasis documented in this encounter Results * Urine culture Clean Catch Urine (02/19/2023 11:00 AM EDT) Urine Culture No growth (Less than 1,000 cfu/ml). [facility] Clean Catch Urine 02/19/2023 11:00 AM EDT 02/19/2023 4:39 PM EDT Narrative Resulting Agency Comment Spec In Lab Luis Michael Jr., MD MICROBIOLOGY - GEN ERAL ORDERABLES [facility] [place] [address] documented in this encounter Visit Diagnoses Diagnosis Nephrolithiasis Calculus of kidney documented in this encounter Care Teams Economic Analyst Relationship Specialty Start Date End Date Janet Davey APRN PCP - General Family Medicine 07/13/20 02/10/24 documented as of this encounter
--- OUTSIDE RECORDS SUMMARY | 2024-07-20 18:27 | XMS_ITS | Encounter Summary ---
Author Organization [facility] [place] [address] Care Team Providers Care White Work Cleaner Name Role Phone Janet Davey APRN Primary Care Provider [phone] Encounter Details Date Type Department Care Team (Late st Contact Info) Description 11/19/2022 Telephone [place] [phone] Nicole Cehng RT Social History Tobacco Use Types Packs/Day Years [...] encounter Miscellaneous Notes * Telephone Encounter - Nicole Cheng RT - 11/19/2022 2:00 PM EDT Called Stacy on her cellphone to follow up on her message. She noted that she was at work and limited time to talk. plan: follow up later this afternoon ( after 3:30 pm) when she would be available. documented in this encounter Plan of Treatment Upcoming Encounters Date Type Department Care Team (Late st Contact Info) Description 08/07/2024 3:30 PM EST Office [place] [address] Tarik Henry MD [facility] [place] [address] 09/22/2024 7:00 AM [place] [address] Luis Michael Jr., MD [facility] [place] [address] 09/22/2024 8:00 AM EST Office Visit Urology at [place] [phone] Luis Michael Jr., MD [facility] [place] [address] documented as of this encounter Visit Diagnoses Not on filedocumented in this encounter Care Teams White Work Cleaner Relationship Specialty Start Date End Date Janet Davey APRN PCP - General Family Medicine 07/13/20 02/10/24 documented as of this encounter
--- OUTSIDE RECORDS SUMMARY | 2024-07-20 18:27 | XMS_ITS | Encounter Summary ---
Author Organization [facility] [place] [address] Care Team Providers Care Nail Professional Name Role Phone Janet Davey APRN Primary Care Provider [phone] Encounter Details Date Type Department Care Team (Late st Contact Info) Description 07/30/2023 3:30 PM EST Office [place] [phone] Maile Hinojosa MD [facility] [place] [address] Osteoporosis, unspecified osteoporosis type, unspecified pathological fracture presence Social History Tobacco Use Types Packs/Day [...] Sign Reading Time Taken Comments Blood Pressure 116/73 07/30/2023 3:08 PM EST Pulse 62 07/30/2023 3:08 PM EST Temperature 36.7 ??C (98 ??F) 07/30/2023 3:08 PM EST Respiratory Rate - - Oxygen Saturation 100% 07/30/2023 3:08 PM EST Inhaled Oxygen Concentration - - Weight 65.4 kg (144 lb 3.2 oz) 07/30/2023 3:08 P M EST Height 171.7 cm (5' 7.6) 07/30/2023 3:08 PM EST Body Mass Index 22.19 07/30/2023 3:08 PM EST documented in this encounter Progress Notes * Maile Hinojosa MD - 07/30/2023 3:30 PM EST Images from the original note were not included. 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 Her dad was in hospice and has since passed, suddenly 12 moth ago from unexpected [place], mom is declining with cancer, just a terrible year. After last visit started on HCTZ as had hypercalciuria. She has had 4 episodes of kidney stones, does not remember when was a last one, in pathology I see one in 2009. Has been on ERT for a long time, INTERNATIONAL ACCOUNTING MANAGER decided to continue. She tells me has been on prednisone for two sheldon, 3-4 month for asthma. Her last BMD by Hologic DXA done on 09/2022 LS - 1.0 SD LFN -2.9 SD, 4.5% loss LH -2.2 SD on T score BMD by Hologic DXA done on 06/2020 [...] [] 701-900 mg [] 901-1100 mg [] 3135-3596 mg [] 3658-1919 mg [] Above 1500 mg Medications: Current Outpatient Medications on File Prior to Visit Medication Sig Dispense Refill hydroCHLOROthiazide (Microzide) 12.5 mg capsule TAKE ONE CAPSULE BY MOUTH EVERY DAY 90 capsule 0 sertraline (Zoloft) 25 mg tablet Take 25 mg by mouth daily. estradioL 0.1 mg/24 hr Patch Semiweekly Change 1 patch on the skin twice a week. 8 patch 12 estradioL (ESTRACE) 0.01 % (0.1 mg/gram) Cream Place 2 g vaginally twice a week. (Patient taking differently: Place 2 g vaginally as needed.) 42.5 g 12 levonorgestreL (Mirena) 21 mcg/24 hours (8 yrs) 52 mg IUD 1 each by Intrauterine route Continuous (Device). Placed 05/01/16 ipratropium (ATROVENT) 21 mcg (0.03 %) Morley, Non-Aerosol 2 sprays by Nasal route 2 [...] azelastine (ASTELIN) 137 mcg (0.1 %) Aerosol, Morley as needed. 0 SUMAtriptan (IMITREX) 100 mg Tablet as needed for Migraine. 1 hydrocortisone (WESTCORT) 0.2 % Cream Apply topically as needed. multivitamin (THERAGRAN) tablet Take 1 tablet by mouth daily. montelukast (SINGULAIR) 10 mg tablet Take 10 mg by mouth every morning. albuterol (ACCUNEB) 0.63 mg/3 mL nebulizer solution tamsulosin (Flomax) 0.4 mg capsule Take 1 capsule by mouth daily. (Patient not taking: Reported on 07/30/2023) 90 tablet 0 hydrOXYzine (Atarax) 25 mg tablet daily. No current facility-administered medications on file prior to visit. PMH: Patient Active Problem List Diagnosis Code Asthma J45.909 Nephrolithiasis N20.0 Raynaud's disease I73.00 Migraines G43.909 Hot flashes, menopausal N95.1 Hormone replacement therapy (postmenopausal) Z79.890 *History of COVID-19 Z86.16 Post-COVID syndrome U09.9 Forgetfulness R68.89 Allergies Allergen Reactions Grass Pollen-[place], Standard Other (See Comments) Runny nose, itching, sneezing Mold Extracts Other (See Comments) Sneezing and runny nose Family History Problem Relation Age of Onset Osteoporosis Mother Depression Mother Breast Cancer Paternal Grandmother 45 Cancer Maternal Aunt lymph node CA Depression Father Colorectal Cancer Neg Hx Ovarian Cancer Neg Hx Social History Socioeconomic History Marital status: Spouse [...] History Narrative with 3 children. Lives in [place], [place]. 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 Eats relatively healthy with fruits, vegetables, yogurt, and milk; minimal meat. Eats 3 meals per day, does not drink tea or coffee, and occasionally drinks soda.Her youngest is 19 yrs old,in college in [place]. The other two are out of the [...] Not on file Intimate Partner Violence: Not on file Housing Stability: Not on file Physical Examination: BP 116/73 (BP Location (NBP): Right arm) Pulse 62 Temp 36.7 ??C (98 ??F) (Temporal) Ht 171.7 cm (5' 7.6) Wt 65.4 kg (144 lb 3.2 oz) SpO2 100% BMI 22.19 kg/m?? Spine: without kyphosis. Patient able to stand up without assistance Appearance: well hydrated, well nourished, oriented x 3, in nad. Labs 10/2022 24h urine Ca 217mg on HCTZ, Chem 7 in good range 03/2022 Chem 7 in good range 10/2021 24h urine Ca 303mg. 05/2021 PTH 59, CTX 283 (now low), 24h urine kidney stone profile showed Ca 261mg and 3.5x increaseCa hydroxyapatite saturation. 06/2020 25-D 42, PTH 40, Es 135, FSH elevated, ca 9.1 Assessment and Plan Osteoporosis/ hx of kidney stones Mrs Stacy Albright has osteoporosis and kidney stones dye to hypercalciuria despite low Ca intake.. In pathology lab from 2009 does not say what type of stone but she remembered that it was Ca oxalate. Was told not to take extra Ca, yet studies show that folks with low Ca intake make more Ca ox stones than those with adequate intake. A. As patient's Ca intake is 500-600 mg from food, 24h urine stone profile shows high Ca, continue HCTZ 12.5 mg. B. Patient also did have Vitamin D at goal, 30 ng/ml and above. Will continue vit D ?1999IUs. C. Will order BMD by DXA 09/2023, on ERT and HCYZ, both would reduce fracture risk. Dose of ERT can be reduced and it still will help her bones. D. I will schedule patient for outpatient visit at 12 month. Thank you for allowing me to participate in the care of this very pleasant patient. I spend 35min in chart reviev, labs, pathology reports of stones, discussing osteoporosis and writing my note. Sincerely, Maile Hinojosa MD Professor documented in this encounter Plan of Treatment Upcoming Encounters Date Type Department Care Team (Late st Contact Info) Description 08/07/2024 3:30 PM EST Office [place] [phone] Tarik Henry MD [facility] [place] [address] 09/22/2024 7:00 AM EST [place] [address] Luis Michael Jr., MD [facility] [address] 09/22/2024 8:00 AM EST [place] [address] Luis Michael Jr., MD [facility] [address] documented as of this encounter Visit Diagnoses Diagnosis Osteoporosis, unspecified osteoporosis type, unspecified pathological fracture presence documented in this encounter Care Teams Nail Professional Relationship Specialty Start Date End Date Janet Davey APRN PCP - General Family Medicine 07/13/20 02/10/24 documented as of this encounter
--- OUTSIDE RECORDS SUMMARY | 2024-07-20 18:27 | XMS_ITS | Encounter Summary ---
Author Organization [facility] [place] [address] Care Team Providers Care Immersion Metal Cleaner Name Role Phone Janet Davey APRN Primary Care Provider [phone] Reason for Visit * Reason Onset Date Comments Other 12/17/2022 Requested ED dis charge note, LVM Encounter Details Date Type Department Care Team (Late st Contact Info) Description 12/17/2022 [place] [address] [place]ak, Romy Gee RN Other (Requested ED discharge note, LVM) Social History Tobacco Use Types Packs/Day Years [...] 3:30 PM EST Office [place] [phone] Tarik Henry MD [facility] [place] [address] 09/22/2024 7:00 AM EST [place] [address] Luis Michael Jr., MD [facility] [place] [address] 09/22/2024 8:00 AM EST [place] [address] Luis Michael Jr., MD [facility] [place] [address] documented as of this encounter Visit Diagnoses Not on filedocumented in this encounter Care Teams Immersion Metal Cleaner Relationship Specialty Start Date End Date Janet Davey APRN PCP - General Family Medicine 07/13/20 02/10/24 documented as of this encounter
--- OUTSIDE RECORDS SUMMARY | 2024-07-20 18:27 | XMS_ITS | Encounter Summary ---
[place] [address] Care Team Providers Care Tractor Technician Name Role Phone Janet Davey APRN Primary Care Provider [phone] Reason for Visit * Reason Onset Date Comments Other 12/18/2022 Sick call Encounter Details Date Type Department Care Team (Late st Contact Info) Description 12/18/2022 [place] [address] Romy Baugh RN Other (Sick call) Social History Tobacco Use Types Packs/Day Years [...] encounter Miscellaneous Notes * Telephone Encounter - Romy Baugh RN - 12/18/2022 2:24 PM EDT I have called pt in regards to plan of care. I have informed her that I will obtain the discharge summary and relay this request to dr. Norman. Pt verbally agrees to wait for call back. Romy Baugh RN Department of Pulmonary 5C, [facility] / Pager: [phone] * Telephone Encounter - Romy Baugh RN - 12/18/2022 2:23 PM EDT Copied from [facility] #[id number]. Topic: Specialty Dept CRMs - Generic Call >> Dec 17, 2022 10:51 AM Xiomy Palafox wrote: Specialist: Dr Norman Relationship (if other than patient-full name): none Reason for Call: Stacy was in ER on Saturday and she is calling back to check on what the plan is incase she gets sick again. documented in this encounter Plan of Treatment Upcoming Encounters Date Type Department Care Team (Late st Contact Info) Description 08/07/2024 3:30 PM EST Office Visit Orthopaedics at [place] [phone] Tarik Henry MD [facility] [place] [address] 09/22/2024 7:00 AM EST Appointment Ultrasound at [place] [phone] Luis Michael Jr., MD [facility] [place] [address] 09/22/2024 8:00 AM EST Office Visit Urology at [place] [phone] Luis Michael Jr., MD [facility] [place] [address] documented as of this encounter Visit Diagnoses Not on filedocumented in this encounter Care Teams Tractor Technician Relationship Specialty Start Date End Date Janet Davey APRN PCP - General Family Medicine 07/13/20 02/10/24 documented as of this encounter
--- OUTSIDE RECORDS SUMMARY | 2024-07-20 18:27 | XMS_ITS | Encounter Summary ---
Author Organization [facility] [place] [address] Care Team Providers Care Contract Driver Name Role Phone Janet Davey APRN Primary Care Provider [phone] Encounter Details Date Type Department Care Team (Late st Contact Info) Description 12/26/2022 Tele[place] [address] Nathalie Wilson Social History Tobacco Use Types Packs/Day Years [...] encounter Miscellaneous Notes * Telephone Encounter - Nathalie Wilson - 12/26/2022 2:59 PM EDT Copied from [facility] #[id number]. Topic: Specialty Dept CRMs - Generic Call >> December 25, 2022 4:08 PM Dyan Whaley wrote: Specialist: Emerson PFT Relationship (if other than patient-full name): Stacy Albright Reason for Call: Patient called to schedule PFT(DLCO, Walk, PrePost/dyspnea/Norman) for 01/11/23 at 3pm. This earliest appt that patient could do with her schedule. documented in this encounter Plan of Treatment Upcoming Encounters Date Type Department Care Team (Late st Contact Info) Description 08/07/2024 3:30 PM EST Office Visit Orthopaedics at [place] [phone] Tarik Henry MD [facility] [place] [address] 09/22/2024 7:00 AM EST Appointment Ultrasound at [place] [phone] Luis Michael Jr., MD [facility] UROLOGY [place] [phone] 09/22/2024 8:00 AM EST Office Visit Urology at [place] [phone] Luis Michael Jr., MD [facility] [place] [address] documented as of this encounter Visit Diagnoses Not on filedocumented in this encounter Care Teams Contract Driver Relationship Specialty Start Date End Date Janet Davey APRN PCP - General Family Medicine 07/13/20 02/10/24 documented as of this encounter
--- OUTSIDE RECORDS SUMMARY | 2024-07-20 18:27 | XMS_ITS | Encounter Summary ---
Author Organization [facility] [place] [address] Care Team Providers Care Tug Captain Name Role Phone David Lockhart Primary Care Provider [phone] Encounter Details Date Type Department Care Team (Late st Contact Info) Description 03/27/2023 10:30 AM EDT [place] [address] Tong Norman MD [facility] [place] [address] Post-COVID chronic dyspnea; Asthma, unspecified asthma severity, unspecified whether complicated, unspecified whether persistent Social History Tobacco Use Types Packs/Day Years Used Date Smoking Tobacco: Never Passive Smoke Exposure: Never Smokeless Tobacco: Never Alcohol Use Standard Drinks/Week Comments No 0 (1 standard drink = 0.6 oz pur e alcohol) [facility] Inpatient Questions Answer Date Recorded [...] Sign Reading Time Taken Comments Blood Pressure 110/73 03/27/2023 10:27 AM EDT Pulse 73 03/27/2023 10:27 AM EDT Temperature 36.9 ??C (98.5 ??F) 03/27/2023 10:27 AM E DT Respiratory Rate 16 03/27/2023 10:27 AM EDT Oxygen Saturation 100% 03/27/2023 10:27 AM EDT Inhaled Oxygen Concentration - - Weight 68.2 kg (150 lb 5.7 oz) 03/27/2023 10:27 AM EDT Height 171.7 cm (5' 7.6) 03/27/2023 10:27 AM ED T Body Mass Index 23.13 03/27/2023 10:27 AM EDT documented in this encounter Patient Instructions * Patient Instructions* Tong Norman MD - 03/27/2023 10:30 AM EDT Images from the original note were not included. Supporting Shortness of Breath after COVID-19 Positions to ease breathlessness After having COVID-19, you may find you have continued breathlessness. These positions can help ease your breathlessness and can be used when resting or when active. Exercises to help manage your breathing Breathing exercises can help you manage your breathlessness and reduce its impact on everyday activities. Breathing control Take a slow breath in through your nose. Try to relax your shoulder and neck. Allow the air to fill up from the bottom of your lungs to the top of your chest. Breathe gently out through pursed lips (as if you were going to make a candle flicker) to create space for the next breath in. Breathing control while walking This will help you walk on flat surfaces, climb stairs and negotiate slopes. Try to keep your shoulders and upper chest relaxed and use your breathing control. Time your breathing with your steps by breathing in for one step and out for one or two steps. Keep cool Make sure you have good air circulation in the room by opening a window or door. Use a wet flannel to cool the area around your nose and mouth. This can help reduce the sensation of breathlessness. Breathe a rectangle Find a comfortable position. Look for a rectangle shape in the room you are in, for example a window, doorframe or TV screen. Move around the sides of the rectangle with your eyes, breathing in on the short sides and out on the long sides. Pursed-lip breathing Pursed-lip breathing can be used to aid recovery of your breathing. It can also be used to control your breathing during exertion. It is particularly useful for people with emphysema. How to do it: Breath in slowly for the count of one - ideally through your nose). Purse your lips as if you were going to whistle. Breath out slowly through your pursed lips for the count of two - breathe out twice as slowly as you breathe in. Let the air escape naturally; don't force the air out of your lungs. Continue until your breathing slows and you feel back in control. Increasing Exercise Exercise is important, but can be difficult when you have excessive shortness of breath and/or fatigue. It is okay to be tired after exertion, but it should not be debilitating fatigue or be accompanied with other lasting unpleasant symptoms. Exercise regularly and as hard as you are able to without feeling wiped out afterwards. Any shortness of breath should resolve with no more than a few minutes of rest. You should be able to repeat the same level of activity the following day without limitations. You should not have chest pains, lightheadedness or dimming vision with exercise. If you are prescribed oxygen, use it! If you are experiencing severe, lasting fatigue after exercise it is important manage your exertionto stay within the bounds of your ability. Pushing hard can make things worse. Work on figuring out what you can do. Carefully and cautiously find the edges of your ability. Once you know what your limits are make what activity you can do part of your regular routine. Adopted from [facility] documented in this encounter Progress Notes * Tong Norman MD - 03/27/2023 10:30 AM EDT Images from the original note were not included. [facility] Section of Pulmonary and Critical Care Medicine Outpatient Follow-up Visit Date of Encounter: 03/27/2023 PCP: Janet Davey APRN Reason for Evaluation: [facility]. [facility] [id number] office visit for [id number] symptoms. She was last seen 12/25/2022. I independently interviewed and examined the patient in the office and have reviewed available records. History of Present Illness: I was able to see Jennifer [id number] in the office today. She tells me that since the time of our last visit in December she has overall improved. She ended up completing pulmonary rehabilitation program with some improvements in her function. She continues to report intermittently having low oxygen levels. As previous we noted, in discussion with her she equates experience of dyspnea with low oxygen levels. Tells me she only occasionally checks her oxygen levels. We discussed that we have not been able to reproduce hypoxemia in clinic. She does have a history of Raynaud's syndrome and use of fingerprints may be unreliable even if symptoms are not active. She has not shown desaturation with the head probe. We discussed that there arenot clear mechanisms that could produce the type of intermittent hypoxemia that she is describing is far more likely related to instrument error. This said I do not dispute that she is having intermittent shortness of breath. The symptoms have been evaluated extensively and no concerning etiology has been identified. I think they are typical of post-COVID syndrome and there is not explanation at this point time. She did have a kidney stone and has a stent in place which is planned to be removed later today. I reviewed medical, surgical family and social [...] performed by Luis Michael Jr., MD at [facility] OSC PRO CYSTOSCOPY, INSERT URETERAL STENT Left 03/15/2023 CYSTO, STENT PLACEMENT (WRVU 2.82) performed by Luis Michael Jr., MD at [facility] OSC PRO CYSTOSCOPY, TX URETERAL STRICTURE Left 03/15/2023 CYSTOURETHROSCOPY, BALLOON DILATION OF URETERAL STRICTURE (WRVU 5.35) performed by Luis Michael Jr., MD at [facility] OSC PRO CYSTOURETHROSCOPY, FULGUR <.5CM LESN N/A 04/18/2017 CYSTO, FULGURATION\BLADDER LESION\W\WO BX\LESS THAN 0.5CM (WRVU 4.05) performed by Luis Michael Jr., MD at [facility] MAIN OR SHOULDER SURGERY Right 07/2019 Family History: Family History Problem (# of Occurrences) Relation (Name,Age of Onset) Depression (2) Mother, Father Cancer (1) Maternal Aunt: lymph node CA Breast Cancer (1) Paternal Grandmother (45) Osteoporosis (1) Mother Negative family history of: Colorectal Cancer, Ovarian Cancer Social and Occupational History: Social History [...] History Narrative with 3 children. Lives in [place], [place]. 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 Eats relatively healthy with fruits, vegetables, yogurt, and milk; minimal meat. Eats 3 meals per day, does not drink tea or coffee, and occasionally drinks soda.Her youngest is 19 yrs old,in college in [place]. The other two are out of the [...] on file Housing Stability: Not on file Current Medications at Start of Encounter: Current Outpatient Medications Medication Instructions acyclovir (ZOVIRAX) 200 mg Capsule PRN albuterol (ACCUNEB) 0.63 mg/3 mL nebulizer solution Allergy Relief, fexofenadine, 180 mg Tablet SWALLOW 1 TABLET BY MOUTH WHOLE WITH WATER ONCE A DAY DO NOT TAKE WITH FRUIT JUICES azelastine (ASTELIN) 137 mcg (0.1 %) Aerosol, [place] instill 1 spray into each nostril twice a day b complex vitamins Capsule 1 capsule, Oral, DAILY benzonatate (TESSALON) 100 mg, Oral, 3 TIMES DAILY PRN calcium carbonate/vitamin D3 (VITAMIN D-3 ORAL) Oral, DAILY estradioL (ESTRACE) 2 g, Vaginal, TWICE WEEKLY estradioL 0.1 mg/24 hr Patch Semiweekly 1 patch, Transdermal, TWICE WEEKLY galantamine (RAZADYNE) 12 mg, 2 TIMES DAILY hydroCHLOROthiazide (MICROZIDE) 12.5 mg, Oral, DAILY hydrocortisone (WESTCORT) 0.2 % Cream Topical (Top), PRN hydrOXYzine (Atarax) 25 mg tablet TAKE ONE-HALF TO ONE BY MOUTH EVERY 6 HOURS NEEDED FOR ANXIETYAND ONE TO TWO TABLETS AT BEDTIME FOR SLEEP ipratropium (ATROVENT) 21 mcg (0.03 %) [place], Non-Aerosol 2 sprays, Nasal, 2 TIMES DAILY levonorgestreL (Mirena) 21 mcg/24 hours (8 yrs) 52 mg IUD 1 each, Intrauterine, CONTINUOUS (DEVICE), Placed 05/01/16 MAGNESIUM ORAL Oral, 2 caps QD memantine (NAMENDA) 5 mg, 2 TIMES DAILY montelukast (SINGULAIR) 10 mg, EVERY MORNING multivitamin (THERAGRAN) tablet 1 tablet, DAILY ondansetron (ZOFRAN) 4 mg, Oral, EVERY 8 HOURS PRN ProChamber Spacer USE DIRECTED WITH INHALER sertraline (ZOLOFT) 25 mg, Oral, DAILY SUMAtriptan (IMITREX) 100 mg Tablet PRN Symbicort 160-4.5 mcg/actuation HFA Aerosol Inhaler Inhale 1 puff into the lungs 2 times daily. Mayalso inhale 1 puff every 4 hours as needed (Shortness of breath, cough or wheezing (up to 4 puffs total daily)). tamsulosin (FLOMAX) 0.4 mg, Oral, DAILY Adverse Drug Reactions: Allergies Allergen Reactions Grass Pollen-[place], Standard Other (See Comments) Runny nose, itching, sneezing Mold Extracts Other (See Comments) Sneezing and runny nose Physical Examination: BP 110/73 (BP Location (NBP): Right arm, Patient Position: Sitting, BP Cuff Sizes: Adult (25-34 cm)) Pulse 73 Temp 36.9 ??C (98.5 ??F) (Temporal) Resp 16 Ht 171.7 cm (5' 7.6) Wt 68.2 kg (150 lb 5.7 oz) SpO2 100% BMI 23.13 kg/m?? Physical Exam Constitutional: General: She is not in acute distress. Appearance: She is well-developed. HENT: Mouth/Throat: Pharynx: No oropharyngeal exudate. Neck: Vascular: No JVD. Trachea: Phonation normal. Cardiovascular: Rate and Rhythm: Normal rate and regular rhythm. Heart sounds: Normal heart sounds. No murmur heard. Pulmonary: Effort: Pulmonary effort is normal. No accessory muscle usage or respiratory distress. Breath sounds: Normal breath sounds. No wheezing or rales. Skin: General: Skin is warm and dry. Findings: No rash. Nails: There is no clubbing. Neurological: Mental Status: She is alert. Labs: [...] following COVID-19 infection in November 2021. 1. Post-COVID chronic dyspnea Altogether symptoms have improved. She was able to complete a program of pulmonary rehabilitation. There is no evidence of a pulmonary abnormality that would explain her symptoms and prior cardiac work-up was negative. One confounding factor is that she conflates dyspnea with hypoxemia. She may have had hypoxemia during acute COVID, but we have not identified this over multiple visits more recently. I think any intermittent hypoxemia is related to instrument error--perhaps in the context of Raynaud's. We have notbeen able to produce hypoxemia under any circumstances. We discussed at length that there is not a clear physiologic mechanism with what we know about her body and physiology to explain transient andexercise-induced hypoxemia she describes as she has not had any evidence of mucous plugging or atelectasis. She does continue to have shortness of breath and postexertional malaise. I shared strategies to manage dyspnea when it occurs. Again, there has been no evidence of a severeunderlying physiologic disorder that would be treatable that could explain the symptoms or is likely to progress and it is reassuring that her symptoms have improved over time. We discussed that there are still no specific treatments for COVID-19 related dyspnea, but most patients seem to continue to improve over time. In terms of future follow-up Stacy agreed as needed follow-up for new or worsening symptoms was acceptable to her. I can reach out to her if there are any breakthrough therapiesthat she would be appropriate for. 2. Asthma, unspecified asthma severity, unspecified whether complicated, unspecified whether persistent Recommend continuing current treatment strategy for asthma which seems to have been well controlled. Follow up as needed if symptoms worsen or fail to improve Tong Norman MD, PhD N [facility] PULMONOLOGY AT [facility] [address] Dept: [phone] Loc: [phone] documented in this encounter Plan of Treatment Upcoming Encounters Date Type Department Care Team (Late st Contact Info) Description 08/07/2024 3:30 PM EST Office [place] [address] Tarik Henry MD [facility] [place] [address] 09/22/2024 7:00 AM EST [place] [address] Luis Michael Jr., MD [facility] [place] [address] 09/22/2024 8:00 AM EST Office Visit Urology at [place] [phone] Luis Michael Jr., MD [facility] [place] [address] documented as of this encounter Visit Diagnoses Diagnosis Post-COVID chronic dyspnea Asthma, unspecified asthma severity, unspecified whether complicated, unspecified whether persistent documented in this encounter Care Teams Tug Captain Relationship Specialty Start Date End Date David Lockhart PA [address] [place] [address] PCP - General Family Medicine 02/11/24 documented as of this encounter
--- OUTSIDE RECORDS SUMMARY | 2024-07-20 18:27 | XMS_ITS | Encounter Summary ---
Author Organization [facility] [place] [address] Care Team Providers Care Clinical Documentation Improvement Specialist Name Role Phone Janet Davey APRN Primary Care Provider [phone] Encounter Details Date Type Department Care Team (Late st Contact Info) Description 07/05/2023 [place]phone [place] [phone] Romy Ogden RN Social History Tobacco Use Types Packs/Day Years Used Date Smoking Tobacco: Never Passive Smoke Exposure: Never Smokeless Tobacco: Never Alcohol Use Standard Drinks/Week Comments No 0 (1 standard drink = 0.6 oz pur e alcohol) [facility] Inpatient Questions Answer Date Recorded Does Anyone [...] Miscellaneous Notes * Telephone Encounter - Romy Ogden RN - 07/05/2023 4:20 PM EST This RN returned the call to the patient, verified name and . This RN informed the patient that Dr. Michael does want her to have the 24 hour urine test done prior to seeing her. Informed the patientthat a request was faxed and that it will take about 2 weeks from when she sends the urine sample for us to get the results. Patient verbalized understanding. * Telephone Encounter - Romy Ogden RN - 07/05/2023 4:20 PM EST Copied from [facility] #[id number]. Topic: Specialty Dept CRMs - Generic Call >> Jul 05, 2023 1:31 PM Nicolasa Charles wrote: Specialist: Luis Michael Jr., MD Relationship (if other than patient-full name): Self Reason for Call: Patient called to schedule FUV but has to have 24 hour urine lab done prior and has not completed as of yet. This agent did not see order in chart but is noted on last visit. She is requesting to discuss turn around time for results to be able to schedule visit and US accordingly. Please call to assist, thank you. documented in this encounter Plan of Treatment Upcoming Encounters Date Type Department Care Team (Late st Contact Info) Description 08/07/2024 3:30 PM EST Office [place] [address] Tarik Henry MD [facility] [place] [address] 09/22/2024 7:00 AM EST Appointment [place] [phone] Luis Michael Jr., MD [facility] [place] [address] 09/22/2024 8:00 AM EST Office [place] [phone] Luis Michael Jr., MD [facility] [place] [address] documented as of this encounter Visit Diagnoses Not on filedocumented in this encounter Care Teams Clinical Documentation Improvement Specialist Relationship Specialty Start Date End Date Janet Davey APRN PCP - General Family Medicine 07/13/20 02/10/24 documented as of this encounter
--- OUTSIDE RECORDS SUMMARY | 2024-07-20 18:27 | XMS_ITS | Encounter Summary ---
Author Organization [facility] Address [facility] [place] [address] Care Team Providers Care Custom Harvester Name Role Phone Janet Davey APRN Primary Care Provider [phone] Encounter Details Date Type Department Care Team (Latest Contact Info) Description 02/19/2023 9:39 AM EDT - 02/19/2023 11:59 PM EDT Hospital [place] [address] Ferdinand Michael Jr., MD [facility] [place] [address] Nephrolithiasis Discharge Disposition: Home Social History Tobacco [...] azelastine (ASTELIN) 137 mcg (0.1 %) Aerosol, [place] as needed. 0 06/17/2017 SUMAtriptan (IMITREX) 100 [...] Intrauterine route Continuous (Device). Placed 05/01/16 02/18/2024 hydroCHLOROthiazide (MICROZIDE) 12.5 mg Capsule Take 1 capsule by mouth daily. 90 capsule 3 10/10/2022 07/04/2023 ipratropium (ATROVENT) 21 mcg (0.03 %) [place], Non-AerosolIndication s:Vasomotor rhinitis 2 sprays by Nasal route 2 times daily. 30 mL 5 07/25/2022 09/16/2023 omeprazole (PriLOSEC) 20 mg Capsule, Delayed Release(E.C.) as needed. 01/18/20222022 cyclobenzaprine (Flexeril) 5 mg Tablet TK 1 T PO TID PRN 09/08/2019 03/27/2023 documented as of this encounter Plan of Treatment Upcoming Encounters Date Type Department Care Team (Late st Contact Info) Description 08/07/2024 3:30 PM EST Office [place] [phone] Tarik Henry MD [facility] DR [place] [address] 09/22/2024 7:00 AM [place] [phone] Ferdinand Michael Jr., MD [facility] [address] 09/22/2024 8:00 AM EST [place] [phone] Ferdinand Michael Jr., MD [facility] [address] documented as of this encounter Procedures Procedure Name Priority Date/Time Associated Diagnosis Comments US RETROPERITONEAL COMPLETE Routine 02/19/2023 9:55 AM EDT Nephrolithiasis documented in this encounter Results * US Retroperitoneal Complete (02/19/2023 9:55 AM EDT) Anatomical Region Laterality Modality Abdomen Ultrasound 02/19/2023 9:56 AM EDT Impressions 02/19/2023 10:15 AM EDT 1. ??Stable nonobstructing single 4 mm left inferior pole renal calculus. 2. ??No other sonographically evident nephrolithiasis, bilaterally, or collecting system dilatation. 3. ??Normal contour of the partially distended bladder. No bladder calculi. Electronically signed by: Genie Carrasco MD, [facility] ([phone]), at 02/19/2023 10:07 AM Thank you for letting us participate in the care of this patient. If you are a health care provider and have any questions regarding this report, please contact the number above. For patients who have questions, please contact the health care trainer that requested your imaging first. ?Genie Carrasco, [facility] Resistor Coater Electronically Signed Final Report ?? 02/19/2023 10:15 am Narrative 02/19/2023 10:15 AM EDT Renal ? (Signed Final 02/19/2023 10:15 am) PATIENT INFO: ID #: ? [id number] ?: ??[birth year] (57 yrs)(F) Name: ? JESSICA GTZ ?Visit Date: 02/19/2023 09:56 am PERFORMED BY: Attending: ?Luna GILL, Genie Dumont Resident: ? Mic Rizo MD Performed By: ? Humberto Donnelly RDMS Referred By: ?FERDINAND MICHAEL Location: ? [facility] SERVICE(S) PROVIDED: URETRO - Retroperitoneal Complete - [id number] ? [id number] INDICATIONS: Assess for stones COMPARISON: Ultrasound: Renal / Bladder 04/10/22 RIGHT KIDNEY: Size (cm) ?L: ??9.4 Cortical Thickness: ?Normal Cortical Echogenicity: ?? Normal Hydronephrosis: ?No sonographic evidence Comment: ?No renal calculi seen. LEFT KIDNEY: Size (cm) ?L: ??10.0 Cortical Thickness: ?Normal Cortical Echogenicity: ?? Normal Hydronephrosis: ?No sonographic evidence Comment: ?4 mm nonobstructing renal calculus seen in the ? inferior pole. URINARY BLADDER: Pre-void (cm) ? L: ??5.0 ? AP: ??5.7 ? TV: ??9.4 Vol (ml): ?140.3 Comment: ?Partially distended, normal contour. ??No bladder ? calculi seen. Procedure Note Genie Carrasco MD - 02/19/2023 Renal (Signed Final 02/19/2023 10:15 am) PATIENT INFO: ID #: [id number] : [birth year] (57 yrs)(F) Name: JESSICA GTZ Visit Date: 02/19/2023 09:56 am PERFORMED BY: Attending: Genie Carrasco MD Resident: Sallie GILL Mic Performed By: Humberto Donnelly RDMS Referred By: FERDINAND MICHAEL JR Location: [facility] SERVICE(S) PROVIDED: URETRO - Retroperitoneal Complete - [id number] INDICATIONS: Assess for stones COMPARISON: Ultrasound: Renal / Bladder 04/10/22 RIGHT KIDNEY: Size (cm) L: 9.4 Cortical Thickness: Normal Cortical Echogenicity: Normal Hydronephrosis: No sonographic evidence Comment: No renal calculi seen. LEFT KIDNEY: Size (cm) L: 10.0 Cortical Thickness: Normal Cortical Echogenicity: Normal Hydronephrosis: No sonographic evidence Comment: 4 mm nonobstructing renal calculus seen in the inferior pole. URINARY BLADDER: Pre-void (cm) L: 5.0 AP: 5.7 TV: 9.4 Vol (ml): 140.3 Comment: Partially distended, normal contour. No bladder calculi seen. IMPRESSION 1. Stable nonobstructing single 4 mm left inferior pole renal calculus. 2. No other sonographically evident nephrolithiasis, bilaterally, or collecting system dilatation. 3. Normal contour of the partially distended bladder. No bladder calculi. Electronically signed by: Genie Carrasco MD, [facility] ([phone]), at 02/19/2023 10:07 AM Thank you for letting us participate in the care of this patient. If you are a health care provider and have any questions regarding this report, please contact the number above. For patients who have questions, please contact the health care trainer that requested your imaging first. Genie Carrasco, [facility] Resistor Coater Electronically Signed Final Report 02/19/2023 10:15 am Ferdinand Michael Jr., MD [facility] GEN ORDERAB LES documented in this encounter Visit Diagnoses Diagnosis Nephrolithiasis Calculus of kidney documented in this encounter Care Teams Custom Harvester Relationship Specialty Start Date End Date Janet Davey APRN PCP - General Family Medicine 07/13/20 02/10/24 documented as of this encounter
--- OUTSIDE RECORDS SUMMARY | 2024-07-20 18:27 | XMS_ITS | Encounter Summary ---
Author Organization Formerly [facility] [place] [address] Care Team Providers Care Sports Fitness And Wellness Director Name Role Phone Janet Davey APRN Primary Care Provider [phone] Encounter Details Date Type Department Care Team (Late st Contact Info) Description 01/11/2023 Orders Only Obstetrics [place] [address] Aleida Wick CCMA Social History Tobacco Use Types Packs/Day Years [...] 3:30 PM EST Office [place] [address] Tarik Henry MD [facility] [place] [address] 09/22/2024 7:00 AM EST [place] [address] Luis Michael Jr., MD [facility] [place] [address] 09/22/2024 8:00 AM EST [place] [address] Luis Michael Jr., MD [facility] [place] [address] documented as of this encounter Visit Diagnoses Not on filedocumented in this encounter Care Teams Sports Fitness And Wellness Director Relationship Specialty Start Date End Date Janet Davey APRN PCP - General Family Medicine 07/13/20 02/10/24 documented as of this encounter
--- OUTSIDE RECORDS SUMMARY | 2024-07-20 18:27 | XMS_ITS | Encounter Summary ---
Author Organization [facility] [place] [address] Care Team Providers Care Scrap Crusher Name Role Phone Janet Davey APRN Primary Care Provider [phone] Encounter Details Date Type Department Care Team (Late st Contact Info) Description 08/02/2023 Orders [place] [phone] Kady Clinton MD [facility] [place] [address] Osteoporosis, unspecified osteoporosis type, unspecified pathological fracture [...] 3:30 PM EST Office Visit Orthopaedics at [place] [phone] Tarik Henry MD [facility] [place] [address] 09/22/2024 7:00 AM EST Appointment Ultrasound at [place] [phone] Luis Michael Jr., MD [facility] UROLOGY [place], [place] [id number] 09/22/2024 8:00 AM EST Office Visit Urology at [place] [phone] Luis Michael Jr., MD [facility] UROLOGY [place], [place] [phone] documented as of this encounter Results * DXA Central Spine, Hip, and/or Whole Body (Generic) (10/30/2023 3:23 PM EST) Anatomical Region Laterality Modality C-spine, Hip N/A Other Impressions 10/31/2023 12:51 PM EST Measurements meet WHO criteria for 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 Bone mineral density measurements are increased at the total hip by 4% over 1 year. DXA data sheets with BMD measurements and plots are available in [employer] under the imaging tab. Paper copies will be sent to providers without E- access. If you have received this report without the data sheet and do not have access to [employer], please contact Radiology [employer] at [phone] Saturday thru Saturday 8am-4pm. ? Bone Density Report ? Name: ?Stacy Albright Age: ? 58 Sex: ? Female Ethnicity: ? White Date of : 1965 Referring Provider: KADY CLINTON Study: Bone densitometry was performed. Model: SynAgile A (S/N [id number]) version 13.6.0.5 Exam Date: October 30, 2023 Accession number: [id number] Bone Density: Region ? BMD ?T-score ??Z-score [...] who have questions please contact the health personal carer that requested your imaging first. ? Electronically signed by: Swapna Cedeño MD, [facility] ([phone]), at 10/31/2023 12:51 PM Narrative 10/31/2023 12:51 PM EST EXAMINATION: DXA CENTRAL SPINE, HIP, AND/OR WHOLE BODY (GENERIC) CLINICAL HISTORY: ??58 years Female Please repeat DXA, assess change on HRT, medically indicated (as entered by ordering provider) TECHNIQUE: Scans were acquired at the lumbar spine and left hip using the [employer] Horizon A system. FINDINGS: Femoral neck BMD: 0.565 g/cm2 Lowest T-score at the diagnostic region of interest: T-score: -2.6, TENZIN: Femoral neck, WHO diagnosis: 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 ......... Comparison......... Previous scan: October 10, 2022 Baseline scan: February 13, 2011 Total spine: Compared to the previous, 0.024 ??g/cm2 (3 %) increase. Compared to the baseline, 0.001 g/cm2 (less than 1 %) increase. At [facility], least significant change for bone mineral density measurements at the spine region of interest: 0.031 g/cm2 Total hip: Compared to the previous, 0.027 ??g/cm2 (4 %) increase. Compared to the baseline, -0.022 g/cm2 (3 %) decrease. At [facility], least significant change for bone mineral density [...] the lumbar spine and left hip usingthe [employer] Horizon A system. FINDINGS: Femoral neck BMD: 0.565 g/cm2 Lowest T-score at the diagnostic region of interest: T-score: -2.6, TENZIN: Femoral neck, WHO diagnosis: 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 ......... Comparison......... Previous scan: October 10, 2022 Baseline scan: February 13, 2011 Total spine: Compared to the previous, 0.024 g/cm2 (3 %) increase. Compared to the baseline, 0.001 g/cm2 (less than 1 %) increase. At [facility], least significant change for bonemineral density measurements at the spine region of interest: 0.031 g/cm2 Total hip: Compared to the previous, 0.027 g/cm2 (4 %) increase. Compared to the baseline, -0.022 g/cm2 (3 %) decrease. At [facility], least significant change for bonemineral density measurements at the left total hip region of interest: 0.025g/cm2 IMPRESSION Measurements meet WHO criteria for 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 Bone mineral density measurements are increased at the total hip by 4%over 1 year. DXA data sheets with BMD measurements and plots are available in [employer] the imaging tab. Paper copies will be sent to providers without [employer] access.If you have received this report without the data sheet and do not haveaccess to [employer], please contact Radiology [employer] at [phone] Saturday 8am-4pm. Bone Density Report Name: Stacy Albright Age: 58 Sex: Female Ethnicity: White Date of : 1965 Referring Provider: KADY CLINTON Study: Bone densitometry was performed. Model: Codey Tristan (S/N [id number]) SW version 13.6.0.5 Exam Date: October 30, 2023 Accession number: [id number] Bone Density: Region BMD T-score Z-score AP [...] patients who have questions please contactthe health personal carer that requested your imaging first. Electronically signed by: Swapna Cedeño MD, [facility]([phone]), at 10/31/2023 12:51 PM Kady Clinton MD IMG DEXA ORDERABLES documented in this encounter Visit Diagnoses Diagnosis Osteoporosis, unspecified osteoporosis type, unspecified pathological fracture presence Osteoporosis, unspecified osteoporosis type, unspecified pathological fracture presence documented in this encounter Care Teams Scrap Crusher Relationship Specialty Start Date End Date Janet Davey, MARINE SERVICE MANAGER PCP - General Family Medicine 07/13/20 02/10/24 documented as of this encounter
--- OUTSIDE RECORDS SUMMARY | 2024-07-20 18:27 | XMS_ITS | Encounter Summary ---
Author Organization [facility] [place] [address] Care Team Providers Care Solar Maintenance Technician Name Role Phone Janet Davey APRN Primary Care Provider [phone] Encounter Details Date Type Department Care Team (Late st Contact Info) Description 11/19/2022 [place] [phone] Nicole Cheng RT Social History Tobacco Use Types Packs/Day [...] Encounter - Nicole Cheng RT - 11/19/2022 4:01 PM EDT Called Stacy at home to follow up on her respiratory symptoms: She has noted increased respiratory symptoms since her un-expectantly in July 2022- and she has needed to do more of the outside work, snow shoveling, etc. Respiratory symptoms:- 2 weeks ago,- got worse after last snow storm -increased dyspnea on exertion: -decreased SpO2 with activity into the 70-80's with HR up to 120 bpm, stops and rests and it improves to >90%. - prn cough, if she doesn't rest - sputum: prn post nasal drip -no wheezing - no fever, chills, sore throat - feels if she pushes past her long covid symptom limit with the cold air impacting her asthma- -she has significant shortness of breath, desaturation, fatigue. Reviewed order of inhalers/nebulizer: Albuterol 0.63mg Nebulizer -currently not utilizing, she noted that she utilizes this primarily when she has a respiratory infection. Reviewed having her take this prior to Symbicort in the morningl -albuterol HFA 90 mcg 2 puffs every 4 hours as needed- currently not utilizing -Symbicort 160/4.5 mcg 2 puffs every 12 hours : 2 puffs in the morning and prn take 2 puffs in the afternoon prior to activity -Singulair 10 mg per day -OTC antihistamine once a day Pulmonary rehab: Waiting to hear from [facility] to find out when able to start pulmonary rehabilitation O2: Has portable oxygen Concentrator, she will trial pulse dose of 2 pulse . Plan: -utilize her albuterol nebulizer prior to her symbicort in the morning -use her portable oxygen concentrator at 2 pulse dose with activity outside -wear a mask/scarf when working outside in the cold air, utilize pacing -forward to Dr Norman to review. documented in this encounter Plan of Treatment Upcoming Encounters Date Type Department Care Team (Late st Contact Info) Description 08/07/2024 3:30 PM EST Office [place] [phone] Tarik Henry MD [facility] [place] [address] 09/22/2024 7:00 AM EST [place] [phone] Luis Michael Jr., MD [facility] [place] [address] 09/22/2024 8:00 AM EST [place] [address] Luis Michael Jr., MD [facility] [place] [address] documented as of this encounter Visit Diagnoses Not on filedocumented in this encounter Care Teams Solar Maintenance Technician Relationship Specialty Start Date End Date Janet Davey APRN PCP - General Family Medicine 07/13/20 02/10/24 documented as of this encounter
--- OUTSIDE RECORDS SUMMARY | 2024-07-20 18:27 | XMS_ITS | Encounter Summary ---
Author Organization [facility] [place] [address] Care Team Providers Care Car Worker Name Role Phone Janet Davey APRN Primary Care Provider [phone] Encounter Details Date Type Department Care Team (Latest Contact Info) Description 11/13/2022 2:50 PM EDT Laboratory Appointment Lab [address] [place] [phone] Osteoporosis, unspecified osteoporosis type, unspecified pathological fracture [...] 3:30 PM EST [place] [phone] Tarik Henry MD [facility] [place] [address] 09/22/2024 7:00 AM [place] [address] Luis Michael Jr., MD [facility] [address] 09/22/2024 8:00 AM EST Office Visit Urology at [facility] [place] [phone] Luis Michael Jr., MD [facility] [place] [address] documented as of this encounter Procedures Procedure Name Priority Date/Time Associated Diagnosis Comments HC PARATHYROID HORMONE(PTH INTACT Routine 11/13/2022 3:06 PM EDT Osteoporosis, unspecified osteoporosis type, unspecified pathological fracture presence BASIC METABOLIC PANEL Routine 11/13/2022 3:06 PM EDT Osteoporosis, unspecified osteoporosis type, unspecified pathological fracture presence U24 HRS AND VOLUME Routine 11/12/2022 6: 55 AM EDT CALCIUM, URINE, 24 HOUR Routine 11/12/2022 6:55 AM EDT Osteoporosis, unspecified osteoporosis type, unspecified pathological fracture presence CREATININE, URINE, 24 HOUR Routine 11/12/2022 6:55 AM EDT Osteoporosis, unspecified osteoporosis type, unspecified pathological fracture presence documented in this encounter Results * Basic Metabolic Panel (non-fasting) (11/13/2022 3:06 PM EDT) Glucose 106 65 - 199 mg/dL [facility] Comment:Diabetes: >=200 mg/d L plus symptoms Blood Urea Nitrogen 12 8 - 18 mg/dL [facility] Creatinine 0.87 0.70 - 1.20 mg/dL [facility] Sodium 138 135 - 145 mmol/L [facility] Potassium 3.5 3.5 - 5.0 mmol/L [facility] Comment: Please note: ??Patients with WBC >100,000 may have falsely elevated Potassium levels. ??For accurate Potassium quantification in these patients send serum separator tube (gold top) for subsequent determinations. ??Contact the Clinical Chemistry Laboratory if there are any questions. Chloride 100 98 - 107 mmol/L [facility] Carbon Dioxide 28 22 - 31 mmol/L [facility] Anion Gap 10 5 - 15 mmol/L [facility] Calcium 9.4 8.5 - 10.5 mg/dL [facility] Est Glomerular Filtration Rate 77 >=60 mL/min/1. 73 m?? [facility] Comment: This patient's estimated GFR [...] and symptoms in addition to eGFR. Blood 11/13/2022 3:06 PM EDT 11/13/2022 3:16 PM EDT Narrative Resulting Agency Comment Spec In Lab Maile Hinojosa MD CHEMISTRY ORDERABLES Performing Organization Address City/[facility]/ZIP Co de Phone Number [facility] [place] [address] * PTH (11/13/2022 3:06 PM EDT) Parathyroid Hormone 32 15 - 65 pg/mL [facility] Blood 11/13/2022 3:06 PM EDT 11/13/2022 3:16 PM EDT Narrative Resulting Agency Comment Spec In Lab Maile Hinojosa MD CHEMISTRY ORDERABLES [facility] [place] [address] * U24 Hrs and Volume (11/12/2022 6:55 AM EDT) Hours Collected 24 hour(s) [facility] Total Volume 3,[address] [facility] Urine 11/12/2022 6:55 AM EDT 11/13/2022 5:47 PM EDT Narrative Resulting Agency Comment Spec In Lab Maile Hinojosa MD CHEMISTRY ORDERABLES [facility] [place] [address] * Calcium, urine, 24 hour (11/12/2022 6:55 AM EDT) Ca Concentration, U24 6.7 mg/dL [facility] Calcium, 24 Hour Urine 217.8 50.0 - 300.0 mg/24hr [facility] Comment:Reference Range: 50. 0-300.0 mg/24 hour based on diet. Urine 11/12/2022 6:55 AM EDT 11/13/2022 5:47 PM EDT Narrative Resulting Agency Comment Spec In Lab Maile Hinojosa MD URINE ORDERABLES Performing Organization Address City/[facility]/ZIP Co de Phone Number [facility] [place] [address] * Creatinine, urine, 24 hour (11/12/2022 6:55 AM EDT) Cre Concentration, U24 29 mg/dL [facility] Creatinine, 24 Hour Urine 0.94 0.70 - 1.60 g/24hr [facility] Urine 11/12/2022 6:55 AM EDT 11/13/2022 5:47 PM EDT Narrative Resulting Agency Comment Spec In Lab Maile Hinojosa MD URINE ORDERABLES Performing Organization Address City/[facility]/ZIP Co de Phone Number [facility] [place] [address] documented in this encounter Visit Diagnoses Diagnosis Osteoporosis, unspecified osteoporosis type, unspecified pathological fracture presence documented in this encounter Care Teams Car Worker Relationship Specialty Start Date End Date Janet Davey APRN PCP - General Family Medicine 07/13/20 02/10/24 documented as of this encounter
--- OUTSIDE RECORDS SUMMARY | 2024-07-20 18:27 | XMS_ITS | Encounter Summary ---
Author Organization [facility] [place] [address] Care Team Providers Care Broom Handle Dipper Name Role Phone Janet Davey Isa GONCALVES Primary Care Provider [phone] Encounter Details Date Type Department Care Team (Latest Contact Info) Description 03/27/2023 9:43 AM EDT - 03/27/2023 11:59 PM EDT Hospital [place] [address] Post-COVID chronic dyspnea Discharge Disposition: Home Social History Tobacco Use Types Packs/Day Years Used Date Smoking Tobacco: Never Passive Smoke Exposure: Never Smokeless Tobacco: Never Alcohol Use Standard Drinks/Week Comments No 0 (1 standard drink = 0.6 oz pur e alcohol) [facility] Inpatient Questions Answer Date Recorded Does [...] azelastine (ASTELIN) 137 mcg (0.1 %) Aerosol, [place] as needed. 0 06/17/2017 SUMAtriptan (IMITREX) 100 [...] 07/04/2023 ipratropium (ATROVENT) 21 mcg (0.03 %) [place], Non-AerosolIndication s:Vasomotor rhinitis 2 sprays by Nasal route 2 times daily. 30 mL 5 07/25/2022 09/16/2023 documented as of this encounter Plan of Treatment Upcoming Encounters Date Type Department Care Team (Late st Contact Info) Description 08/07/2024 3:30 PM EST [place] [address] Tarik Henry MD [facility] [place] [address] 09/22/2024 7:00 AM EST [place] [phone] Luis Michael Jr., MD [facility] [place] [address] 09/22/2024 8:00 AM EST [place] [phone] Luis Michael Jr., MD [facility] [place] [address] documented as of this encounter Procedures Procedure Name Priority Date/Time Associated Diagnosis Comments COMMON PULMONARY FUNCTION TEST Routine 03/27/2023 10:05 AM EDT Post-COVID chronic dyspnea documented in this encounter Results * Pulmonary Function Testing (03/27/2023 10:05 AM EDT) FVC Actual Pre-BD 3.86 L COMPAS PFT FVC Pre-BD % of Predicted 107 % COMPAS PFT FVC Predicted 3.60 L COMPAS PFT FVC Pre-BD Z-Score 0.48 COMPAS PFT FVC Lower Limits of Normal 2.73 L COMPAS PFT FEV1 Actual Pre-BD 2.76 L COMPAS PFT FEV1 Pre-BD % of Predicted 98 % COMPAS PFT FEV1 Predicted 2.82 L COMPAS PFT FEV1 Pre-BD Z-Score -0.15 COMPAS PFT FEV1 Lower Limits of Normal 2.13 L COMPAS PFT FEV1 / FVC Actual Pre-BD 72 % COMPAS PFT FEV1/FVC Pre-BD Z-Score -1.00 COMPAS PFT FEV1 / FVC LLN 67 % COMPAS PFT [id number] Actual Pre-BD 1.86 L/s COMPAS PFT [id number] Pre-BD % of Predicted 75 % COMPAS PFT [id number] Predicted 2.47 L/s COMPAS PFT [id number] Pre-BD Z-Score -0.77 COMPAS PFT DLCO Hb Actual Pre-BD 22.61 mL/min/mmHg COMPAS PFT DLCO Hb Pre-BD % of Predicted 99 % COMPAS PFT DLCO Hb Pre-BD Z-Score -0.05 COMPAS PFT DLCO Hb Predicted 22.82 mL/min/mmHg COMPAS PFT DLCO UNC ACT PRE-BD 22.61 mL/min/mmHg COMPAS PFT DLCO UNC PRE-BD % of PRED 99 % COMPAS PFT DLCO UNC PRE-BD Z-SCORE -0.05 % COMPAS PFT DLCO UNC Predicted 22.82 mL/min/mmHg COMPAS PFT DLCO/VA Actual Pre-BD 4.00 mL/min/mmHg /L COMPAS PFT DLCO/VA Pre-BD % of Predicted 96 % COMPAS PFT DLCO/VA Pre-BD Z-Score -0.26 COMPAS PFT DLCO/VA Predicted 4.16 mL/min/mmHg /L COMPAS PFT Narrative COMPAS PFT - 03/27/2023 10:05 AM EDT FINDINGS: FEV1, FVC, and FEV1/VC are within normal limits. Diffusion capacity is normal. IMPRESSION: Normal spirometry. No diffusion impairment. Compared to the last study on 01/11/23, the FVC, FEV1 and DLCO are not significantly changed. Procedure Note Dulce Gonzalez MD - 04/02/2023 FINDINGS: FEV1, FVC, and FEV1/VC are within normal limits. Diffusioncapacity is normal. IMPRESSION: Normal spirometry. No diffusion impairment. Compared to thelast study on 01/11/23, the FVC, FEV1 and DLCO are not significantly changed. Tong Norman MD PFT ORDERABLES COMPAS PFT documented in this encounter Visit Diagnoses Diagnosis Post-COVID chronic dyspnea documented in this encounter Care Teams Broom Handle Dipper Relationship Specialty Start Date End Date Janet Davey, SACHA PCP - General Family Medicine 07/13/20 02/10/24 documented as of this encounter
--- OUTSIDE RECORDS SUMMARY | 2024-07-20 18:27 | XMS_ITS | Encounter Summary ---
Author Organization [facility] [place] [address] Care Team Providers Care Car Unloader Name Role Phone Janet Davey APRN Primary Care Provider [phone] Encounter Details Date Type Department Care Team (Late st Contact Info) Description 12/25/2022 1:00 PM EDT [place] [address] Tong Norman MD [facility] [place] [address] Post-COVID chronic dyspnea; Exercise hypoxemia; Asthma, unspecified asthma severity, unspecified whether complicated, unspecified whether persistent Social History Tobacco Use Types Packs/Day Years Used Date Smoking Tobacco: Never Smokeless Tobacco: Never Tobacco Cessation:Counseling Given: [...] Sign Reading Time Taken Comments Blood Pressure 108/72 12/25/2022 1:11 PM EDT Pulse 70 12/25/2022 1:11 PM EDT Temperature 35.8 ??C (96.5 ??F) 12/25/2022 1:11 PM ED T Respiratory Rate 16 12/25/2022 1:11 PM EDT Oxygen Saturation 100% 12/25/2022 1:11 PM EDT Inhaled Oxygen Concentration - - Weight 67.9 kg (149 lb 12.8 oz) 12/25/2022 1:11 PM EDT Height 172 cm (5' 7.72) 12/25/2022 1:11 PM EDT Body Mass Index 22.97 12/25/2022 1:11 PM EDT documented in this encounter Progress Notes * Tong Norman MD - 12/25/2022 1:00 PM EDT Images from the original note were not included. [facility] Section of Pulmonary and Critical Care Medicine Outpatient Follow-up Visit Date of Encounter: 12/25/2022 PCP: Janet Davey APRN Reason for Evaluation: Ms. Stacy Alb[facility] [id number] office visit for [id number] symptoms. She was last seen 11/27/2022. I independently interviewed and examined the patient in the office and have reviewed available records. History of Present Illness: I was able to see Ms. Albright [id number] in clinic today. Purpose of this visit was to follow-up worsening respiratory symptoms that prompted seeking placement. Reviewed records from emergency room work-up there. Vital signs are reassuring. Chest radiograph is clear and D-dimer was negative. No ischemic changes on EKG and negative troponin. Ms. Albright tells me that symptoms seem to have worsened after increased exertion and there may have been a significant component of allergies contributing as well. She tells me she has been increasing her level of activity slowly with some success. Reports that she continues to have exertional desaturations with supplemental oxygen. Reports that she had desaturated to the 70s well shopping today. She has been using supplemental oxygen. Unfortunately we are not able to schedule a function test before this visit and she was not able to wait for repeat testingtoday. She continues to use Symbicort as prescribed. She is starting pulmonary rehabilitation. I reviewed medical, surgical family and social histories and updated the chart as indicated. Past Medical and Surgical History: Past Medical History: Diagnosis Date ??? Abnormal glandular Papanicolaou smear of cervix age 15 ??? Asthma ??? COVID-19 11/2021 ??? Gastric acidity possible ulcer ??? History of nephrolithiasis ??? Memory difficulties 2018 ??? Migraines ??? Osteoporosis ??? Raynaud's disease ??? Shoulder pain R frozen shoulder and rotator cuff repair Past Surgical History: Procedure Laterality Date ??? CREATED BY [employer]SJosephWGuido(MSUROL) Procedure Date: 01/16/2008 ??? KNEE SURGERY 03/01/14 Right knee; patella surgery ??? LITHOTRIPSY ? ? PRO CYSTOURETHROSCOPY, FULGUR <.5CM LESN N/A 04/18/2017 CYSTO, FULGURATION\BLADDER LESION\W\WO BX\LESS THAN 0.5CM (WRVU 4.05) performed by Luis Michael Jr., MD at [facility] MAIN OR ??? SHOULDER SURGERY Right 07/2019 Family History: Family History Problem (# of Occurrences) Relation (Name,Age of Onset) Depression (2) Mother, Father Cancer (1) Maternal Aunt: lymph node CA Breast Cancer (1) Paternal Grandmother (45) Osteoporosis (1) Mother Negative family history of: Colorectal Cancer, Ovarian Cancer Social and Occupational History: Social History Socioeconomic History ??? Marital status: Spouse name: None ??? Number of children: None ??? Years of education: None ??? Highest education level: None Occupational History ??? None Tobacco Use ??? Smoking status: Never ??? Smokeless tobacco: Never Vaping Use ??? Vaping Use: Never used Substance and Sexual Activity ??? Alcohol use: No ??? Drug use: No ??? Sexual activity: Yes Partners: Male control/protection: Surgical Comment: vasectomy/04/2016 Mirena Other Topics Concern ??? None Social History Narrative with 3 children. Lives in [place], [place]. 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 Eats relatively healthy with fruits, vegetables, yogurt, and milk; minimal meat. Eats 3 meals per day, does not drink tea or coffee, and occasionally drinks soda.Her youngest is 19 yrs old,in college in [place] The other two are out of the [...] of Encounter: Current Outpatient Medications Medication Instructions ??? acyclovir (ZOVIRAX) 200 mg Capsule PRN ??? albuterol (ACCUNEB) 0.63 mg/3 mL nebulizer solution ??? Allergy Relief, fexofenadine, 180 mg Tablet SWALLOW 1 TABLET BY MOUTH WHOLE WITH WATER ONCE A DAY DO NOT TAKE WITH FRUIT JUICES ??? azelastine (ASTELIN) 137 mcg (0.1 %) Aerosol, [place] instill 1 spray into each nostril twice a day ??? b complex vitamins Capsule 1 capsule, Oral, DAILY ??? benzonatate (TESSALON) 100 mg, Oral, 3 TIMES DAILY PRN ??? calcium carbonate/vitamin D3 (VITAMIN D-3 ORAL) Oral, DAILY ??? cyclobenzaprine (Flexeril) 5 mg Tablet TK 1 T PO TID PRN ??? estradioL (Lia) 0.1 mg/24 hr Patch Semiweekly 1 patch, Transdermal, TWICE WEEKLY ??? estradioL (ESTRACE) 2 g, Vaginal, TWICE WEEKLY ??? galantamine (RAZADYNE) 12 mg, 2 TIMES DAILY ??? hydroCHLOROthiazide (MICROZIDE) 12.5 mg, Oral, DAILY ??? hydrocortisone (WESTCORT) 0.2 % Cream Topical (Top), PRN ??? hydrOXYzine (Atarax) 25 mg tablet TAKE ONE-HALF TO ONE BY MOUTH EVERY 6 HOURS NEEDED FOR ANXIETY AND ONE TO TWO TABLETS AT BEDTIME FOR SLEEP ??? ipratropium (ATROVENT) 21 mcg (0.03 %) [place], Non-Aerosol 2 sprays, Nasal, 2 TIMES DAILY ??? levonorgestreL (Mirena) 21 mcg/24 hours (8 yrs) 52 mg IUD 1 each, Intrauterine, CONTINUOUS (DEVICE), Placed 05/01/16 ??? MAGNESIUM ORAL Oral, 2 caps QD ??? memantine (NAMENDA) 5 mg, 2 TIMES DAILY ??? montelukast (SINGULAIR) 10 mg, EVERY MORNING ??? multivitamin (THERAGRAN) tablet 1 tablet, DAILY ??? omeprazole (PriLOSEC) 20 mg Capsule, Delayed Release(E.C.) PRN ??? ondansetron (ZOFRAN) 4 mg, Oral, EVERY 8 HOURS PRN ??? ProChamber Spacer USE DIRECTED WITH INHALER ??? SUMAtriptan (IMITREX) 100 mg Tablet PRN ??? Symbicort 160-4.5 mcg/actuation HFA Aerosol Inhaler Inhale 1 puff into the lungs 2 times daily.May also inhale 1 puff every 4 hours as needed (Shortness of breath, cough or wheezing (up to 4 puffs total daily)). Adverse Drug Reactions: Allergies Allergen Reactions ??? Grass Pollen-[place], Standard Other (See Comments) Runny nose, itching, sneezing ??? Mold Extracts Other (See Comments) Sneezing and runny nose Physical Examination: BP 108/72 Pulse 70 Temp 35.8 ??C (96.5 ??F) (Temporal) Resp 16 Ht 172 cm (5' 7.72) Wt 67.9 kg (149 lb 12.8 oz) SpO2 100% BMI 22.97 kg/m?? Physical Exam Constitutional: General: She is [...] Neurological: Mental Status: She is alert. Labs: I reviewed external lab results. Troponin is below the limit of detection. Normal creatinine and BUN. Total plasma CO2 was 32, which is at the upper limit of normal. White blood cell count with normal differential. 100 peripheral eosinophils. Hemoglobin is normal at 13.6 with normal MCV at 91. The D-dimer was not elevated at 222. Imaging: I was able to review report from recent emergency room x-ray which indicated clear lungs.the primary imaging was not available for my review. The last CT scan from 01/08/2022 showed normal lung parenchyma. No abnormal adenopathy. There was scarring in left lower lobe. I personally reviewed EKG from 12/14/2022: Normal sinus rhythm without ischemic changes. Pulmonary Function Tests: No formal lung function test available. Ambulating with pulse oximeter in clinic today I was not able to produce any desaturation after walking approximately 400 feet at a reasonable pace. She did have appropriate heart rate response. Impression and Plan of Care: This is a middle-aged woman with persistent respiratory symptoms and hypoxemia following COVID-19 infection in November 2021. 1. Post-COVID chronic dyspnea 2. Exercise hypoxemia 3. Asthma, unspecified asthma severity, unspecified whether complicated, unspecified whether persistent We discussed that exercise desaturation is not expected in typical postacute COVID syndrome (long-haul COVID). Similarly substantial hypoxemia such as she describes continued desaturations to the 70swith exertion is also not expected and asthma in general and pulmonary problems asthma is associated with very severe ventilatory defect which were not present. The intermittent nature of her exertional hypoxemia is unusual and most frequently this occurrence is related to instrument artifact as opposed to true arterial hypoxemia. Peripheral perfusion abnormalities can also contribute. I recommend we obtain a baseline set of lung function studies in our lab. If these are normal I will suggest ev aluation with a combined cardiopulmonary exercise test to see if we can reproduce hypoxemia and identify cause of dyspnea. Recommend she continue with regular activity and supplemental oxygen for oxygen saturations of 80% or less. Recommend continuing in pulmonary rehabilitation. - Pulmonary Function Testing; Future Follow up PFT ANGELA, keep scheduled follow up for March. I spent 20 minutes in direct discussion with the patient and 15 minutes in engaged in other relatedtasks including reviewing imaging, lab tests, other studies and external medical records. Tong Norman MD, PhD N [facility] PULMONOLOGY AT [facility] [address] Dept: [phone] Loc: [phone] documented in this encounter Plan of Treatment Upcoming Encounters Date Type Department Care Team (Late st Contact Info) Description 08/07/2024 3:30 PM EST Office [place] [phone] Tarik Henry MD [facility] [place] [address] 09/22/2024 7:00 AM [place] [address] Luis Michael Jr., MD [facility] [place] [address] 09/22/2024 8:00 AM [place] [phone] Luis Michael Jr., MD [facility] [place] [address] documented as of this encounter Results * Pulmonary Function Testing (01/11/2023 3:18 PM EDT) FVC Actual Pre-BD 3.72 L COMPAS PFT FVC Pre-BD % of Predicted 103 % COMPAS PFT FVC Predicted 3.61 L COMPAS PFT FVC Pre-BD Z-Score 0.20 COMPAS PFT FVC Lower Limits of Normal 2.74 L COMPAS PFT FEV1 Actual Pre-BD 2.78 L COMPAS PFT FEV1 Pre-BD % of Predicted 99 % COMPAS PFT FEV1 Predicted 2.82 L COMPAS PFT FEV1 Pre-BD Z-Score -0.10 COMPAS PFT FEV1 Lower Limits of Normal 2.14 L COMPAS PFT FEV1 / FVC Actual Pre-BD 75 % COMPAS PFT FEV1/FVC Pre-BD Z-Score -0.59 COMPAS PFT FEV1 / FVC LLN 67 % COMPAS PFT [id number] Actual Pre-BD 2.17 L/s COMPAS PFT [id number] Pre-BD % of Predicted 88 % COMPAS PFT [id number] Predicted 2.48 L/s COMPAS PFT QFB95-98 Pre-BD Z-Score -0.38 COMPAS PFT FVC Actual Post-BD 3.70 L COMPAS PFT FVC Post-BD % of Predicted 102 % COMPAS PFT FVC Post-BD Z-Score 0.17 COMPAS PFT FEV1 Actual Post-BD 2.89 L COMPAS PFT FEV1 Post-BD % of Predicted 102 % COMPAS PFT FEV1 Post-BD Z-Score 0.17 COMPAS PFT FEV1 / FVC Actual Post-BD 78 % COMPAS PFT FEV1 / FVC LLN 67 % COMPAS PFT FEV1/FVC Post-BD Z-Score -0.15 COMPAS PFT ZUT09-86 Actual Post-BD 2.59 L/s COMPAS PFT NPC85-38 Post-BD % of Predicted 104 % COMPAS PFT VSN67-68 Post-BD Z-Score 0.13 COMPAS PFT DLCO Hb Actual Pre-BD 24.17 mL/min/mmHg COMPAS PFT DLCO Hb Pre-BD % of Predicted 106 % COMPAS PFT DLCO Hb Pre-BD Z-Score 0.33 COMPAS PFT DLCO Hb Predicted 22.84 mL/min/mmHg COMPAS PFT DLCO UNC ACT PRE-BD 24.17 mL/min/mmHg COMPAS PFT DLCO UNC PRE-BD % of PRED 106 % COMPAS PFT DLCO UNC PRE-BD Z-SCORE 0.33 % COMPAS PFT DLCO UNC Predicted 22.84 mL/min/mmHg COMPAS PFT DLCO/VA Actual Pre-BD 4.29 mL/min/mmHg /L COMPAS PFT DLCO/VA Pre-BD % of Predicted 103 % COMPAS PFT DLCO/VA Pre-BD Z-Score 0.21 COMPAS PFT DLCO/VA Predicted 4.16 mL/min/mmHg /L COMPAS PFT Narrative COMPAS PFT - 01/11/2023 3:18 PM EDT FINDINGS: FEV1, FVC, and FEV1/VC are within normal limits. After administration of bronchodilator the FVC and FEV1 are not significantly changed. Diffusion capacity is normal. The SpO2 decreased from 98% to 96% with ambulation of 500 feet on room air. IMPRESSION: Normal spirometry. No significant response to inhaled bronchodilator. No diffusion impairment. There is mild desaturation with ambulation. Procedure Note Kati Waters MD - 01/11/2023 FINDINGS: FEV1, FVC, and FEV1/VC are within normal limits. Afteradministration of bronchodilator the FVC and FEV1 are not significantly changed. Diffusioncapacity is normal. The SpO2 decreased from 98% to 96% with ambulation of 500 feet on roomair. IMPRESSION: Normal spirometry. No significant response to inhaled bronchodilator. Nodiffusion impairment. There is mild desaturation with ambulation. Tong Norman MD PFT ORDERABLES COMPAS PFT documented in this encounter Visit Diagnoses Diagnosis Post-COVID chronic dyspnea Exercise hypoxemia Hypoxemia Asthma, unspecified asthma severity, unspecified whether complicated, unspecified whether persistent Post-COVID chronic dyspnea documented in this encounter Care Teams Car Unloader Relationship Specialty Start Date End Date Janet Davey, COOLER MAN PCP - General Family Medicine 07/13/20 02/10/24 documented as of this encounter
--- OUTSIDE RECORDS SUMMARY | 2024-07-20 18:27 | XMS_ITS | Encounter Summary ---
Author Organization [facility] [place] [address] Care Team Providers Care Tree Climber Name Role Phone Janet Davey APRN Primary Care Provider [phone] Encounter Details Date Type Department Care Team (Latest Contact Info) Description 03/27/2023 Travel Social History Tobacco Use Types Packs/Day [...] 3:30 PM EST Office [place] [address] Tarik Henry MD [facility] DR ORTHOPAEDIC [place] [address] 09/22/2024 7:00 AM [place] [address] Luis Michael Jr., MD [facility] [place] [address] 09/22/2024 8:00 AM EST [place] [address] Luis Michael Jr., MD [facility] [place] [address] documented as of this encounter Visit Diagnoses Not on filedocumented in this encounter Care Teams Tree Climber Relationship Specialty Start Date End Date Janet Davey APRN PCP - General Family Medicine 07/13/20 02/10/24 documented as of this encounter
--- OUTSIDE RECORDS SUMMARY | 2024-07-20 18:27 | XMS_ITS | Encounter Summary ---
[place] [address] Care Team Providers Care Superintendent Local Name Role Phone Janet Davey APRN Primary Care Provider [phone] Encounter Details Date Type Department Care Team (Late st Contact Info) Description 01/09/2023 Telephone [place] [phone] Kamron John RN Social History Tobacco Use Types Packs/Day [...] encounter Miscellaneous Notes * Telephone Encounter - Kamron John RN - 01/09/2023 3:26 PM EDT Please see prior documentation from 01/09/2023. * Telephone Encounter - Kamron John RN - 01/09/2023 3:17 PM EDT Copied from [facility] #[id number]. Topic: Specialty Dept CRMs - Triage >> January 09, 2023 3:00 PM Danielle Colunga wrote: Triage Message Specialist: Emerson Relationship (if other than patient-full name): patient Symptom:irregular heart rate , and low o2 Has patient experienced symptom before patient states she has oxygen and it happens occasionally If patient has experienced symptom before, when was the last time this occurred not since she was last sick Is patient currently having symptom yes patient states better today , but she has a very irregular heart rate yesterday , and her oxygen was going down to 70's and had to spend most of the day on oxygen When did symptom begin yesterday Additional Comments: patient states she is not sick and this usually only happens when she is , shestates slightly better today but not 100 % 02 at 98 right now at rest documented in this encounter Plan of Treatment Upcoming Encounters Date Type Department Care Team (Late st Contact Info) Description 08/07/2024 3:30 PM EST Office Visit Orthopaedics at [place] [phone] Tarik Henry MD [facility] [address] [place] [address] 09/22/2024 7:00 AM EST Appointment Ultrasound at [place] [phone] Luis Michael Jr., MD [facility] [place] [address] 09/22/2024 8:00 AM EST Office [place] [phone] Luis Michael Jr., MD [facility] [place] [address] documented as of this encounter Visit Diagnoses Not on filedocumented in this encounter Care Teams Superintendent Local Relationship Specialty Start Date End Date Janet Davey APRN PCP - General Family Medicine 07/13/20 02/10/24 documented as of this encounter
--- OUTSIDE RECORDS SUMMARY | 2024-07-20 18:27 | XMS_ITS | Encounter Summary ---
Author Organization [facility] [place] [address] Care Team Providers Care Wellfield Technician Name Role Phone Janet Davey APRN Primary Care Provider [phone] Encounter Details Date Type Department Care Team (Latest Contact Info) Description 01/11/2023 2:51 PM EDT - 01/11/2023 11:59 PM EDT Hospital [place] [address] Post-COVID chronic dyspnea Discharge Disposition: Home Social [...] Dispensed Refills Start Date End Date estradioL (ESTRACE) 0.01 % (0.1 mg/gram) Cream [...] azelastine (ASTELIN) 137 mcg (0.1 %) Aerosol, [place] as needed. 0 06/17/2017 SUMAtriptan (IMITREX) 100 mg Tablet as needed for Migraine. 1 04/13/2016 hydrocortisone (WESTCORT) 0.2 % Cream Apply topically as needed. 07/25/2015 multivitamin (THERAGRAN) tablet Take 1 tablet by mouth daily. montelukast (SINGULAIR) 10 mg tablet Take 10 mg by mouth daily as needed. 12/07/2010 albuterol (ACCUNEB) 0.63 mg/3 mL nebulizer solution 08/24/2010 estradioL 0.1 mg/24 hr Patch Semiweekly Change [...] 07/04/2023 ipratropium (ATROVENT) 21 mcg (0.03 %) [place], Non-AerosolIndication s:Vasomotor rhinitis 2 sprays by Nasal [...] 3:30 PM EST Office [place] [phone] Tarik Henry MD [facility] [place] [address] 09/22/2024 7:00 AM EST [place] [phone] Luis Michael Jr., MD [facility] [place] [address] 09/22/2024 8:00 AM EST [place] [phone] Luis Michael Jr., MD [facility] [place] [address] documented as of this encounter Procedures Procedure Name Priority Date/Time Associated Diagnosis Comments COMMON PULMONARY FUNCTION TEST Routine 01/11/2023 3:18 PM EDT Post-COVID chronic dyspnea documented in this [...] / FVC LLN 67 % COMPAS PFT [id number] Actual Pre-BD 2.17 L/s COMPAS PFT BAW64-26 Pre-BD % of Predicted 88 % COMPAS PFT [id number] Predicted 2.48 L/s COMPAS PFT GWY57-50 Pre-BD Z-Score -0.38 COMPAS PFT FVC Actual [...] PFT FEV1/FVC Post-BD Z-Score -0.15 COMPAS PFT JSL08-65 Actual Post-BD 2.59 L/s COMPAS PFT VWC35-00 Post-BD % of Predicted 104 % COMPAS PFT [id number] Post-BD Z-Score 0.13 COMPAS PFT DLCO Hb [...] dyspnea documented in this encounter Care Teams Wellfield Technician Relationship Specialty Start Date End Date Janet Davey APRN PCP - General Family Medicine 07/13/20 02/10/24 documented as of this encounter
--- OUTSIDE RECORDS SUMMARY | 2024-07-20 18:27 | XMS_ITS | Encounter Summary ---
[place] [address] Care Team Providers Care Semiconductor Equipment Technician Name Role Phone Janet Davey SACHA Primary Care Provider [phone] Reason for Visit * Reason Onset Date Comments Other 12/14/2022 Sick call Encounter Details Date Type Department Care Team (Late st Contact Info) Description 12/14/2022 [place] [address] Romy Baugh RN Other (Sick call) Social [...] Telephone Encounter - Romy Baugh RN - 12/14/2022 4:15 PM EDT I have received a transferred call from pt in regards to continuously low O2 saturations. Pt tells me that she started not to feel good the past couple days, however, today she noted an alarming progression in her symptoms. Pt explains that she just doesn't feel good at all, its not normal how bad I feel, very tired. She states that she has noted her pulse oximeter has been showing readings of 73-88% throughout the day with extreme fatigue. She tells me that she is worried and doesn't know what to do. I have expressed to Pt that with her O2 saturations, fatigue and progression of symptoms she shouldbe physically evaluated miladis by a MD. Pt agrees and is going to present to [facility] for evaluation. She states she can get a ride over there. Romy Baugh RN Department of Pulmonary 5C, [facility] / Pager: [phone] documented in this encounter Plan of Treatment Upcoming Encounters Date Type Department Care Team (Late st Contact Info) Description 08/07/2024 3:30 PM EST Office Visit Orthopaedics at [place] [address] Tarik Henry MD [facility] [place] [address] 09/22/2024 7:00 AM EST Appointment Ultrasound at [address] Luis Michael Jr., MD [facility] [place] [address] 09/22/2024 8:00 AM EST Office Visit Urology at [place] [phone] Luis Michael Jr., MD [facility] [place] [address] documented as of this encounter Visit Diagnoses Not on filedocumented in this encounter Care Teams Semiconductor Equipment Technician Relationship Specialty Start Date End Date Janet Davey APRN PCP - General Family Medicine 07/13/20 02/10/24 documented as of this encounter
--- OUTSIDE RECORDS SUMMARY | 2024-07-20 18:27 | XMS_ITS | Encounter Summary ---
Author Organization [facility] [place] [address] Care Team Providers Care Bat Boy/Girl Name Role Phone Janet Davey SACHA Primary Care Provider [phone] Encounter Details Date Type Department Care Team (Late st Contact Info) Description 11/21/2022 Orders Only Obstetrics [place] [phone] Mil Randhawa APRN [facility] OBSTETRICS [place] [address] Social History Tobacco Use Types Packs/Day Years [...] 3:30 PM EST Office [place] [phone] Tarik Henry MD [facility] [place] [address] 09/22/2024 7:00 AM EST Appointment [place] [address] Luis Michael Jr., MD [facility] [place] [address] 09/22/2024 8:00 AM EST Office [place] [address] Luis Michael Jr., MD [facility] [place] [address] documented as of this encounter Visit Diagnoses Not on filedocumented in this encounter Care Teams Bat Boy/Girl Relationship Specialty Start Date End Date Janet Davey APRN PCP - General Family Medicine 07/13/20 02/10/24 documented as of this encounter
--- OUTSIDE RECORDS SUMMARY | 2024-07-20 18:27 | XMS_ITS | Encounter Summary ---
Author Organization [facility] [place] [address] Care Team Providers Care Air Turning Machine Feeder Name Role Phone Janet Davey APRN Primary Care Provider [phone] Encounter Details Date Type Department Care Team (Late st Contact Info) Description 03/26/2023 Orders Only [place] [phone] Tong Norman MD [facility] [place] [address] Post-COVID chronic dyspnea Social History Tobacco Use Types Packs/Day Years [...] 3:30 PM EST Office Visit [place] [phone] Tarik Henry MD [facility] [place] [address] 09/22/2024 7:00 AM EST Appointment [place] [address] Luis Michael Jr., MD [facility] [place] [address] 09/22/2024 8:00 AM EST Office Visit [place] [address] Luis Michael Jr., MD [facility] [place] [address] documented as of this encounter Results * [...] / FVC LLN 67 % COMPAS PFT MJA78-70 Actual Pre-BD 1.86 L/s COMPAS PFT QNC29-07 Pre-BD % of Predicted 75 % COMPAS PFT LHL52-22 Predicted 2.47 L/s COMPAS PFT AHH79-60 Pre-BD Z-Score -0.77 COMPAS PFT DLCO Hb [...] encounter Visit Diagnoses Diagnosis Post-COVID chronic dyspnea Post-COVID chronic dyspnea documented in this encounter Care Teams Air Turning Machine Feeder Relationship Specialty Start Date End Date Janet Davey, SACHA PCP - General Family Medicine 11/18/20 6/17/24 documented as of this encounter
--- OUTSIDE RECORDS SUMMARY | 2024-07-20 18:27 | XMS_ITS | Encounter Summary ---
Author Organization [facility] [place] [address] Care Team Providers Care Engine Builder Name Role Phone Janet Davey APRN Primary Care Provider [phone] Reason for Referral * Diagnostic Test (Routine) - Closed Specialty Diagnoses / Procedures Referred By Contac t Referred To Contact Urology Diagnoses Nephrolithiasis Procedures Cysto Stent Removal Luis Michael Jr., MD [facility] [place] [address] [place] [address] Referral ID Status Reason Start Date Expiration Date V isits Requested Visits Authorized [id number] Closed Test Only 03/26/2023 03/25/2024 1 1 Reason for Visit * Diagnostic Test (Routine) - Closed Specialty Diagnoses / Procedures Referred By Contac t Referred To Contact Urology Diagnoses Nephrolithiasis Procedures Cysto Stent Removal Luis Michael Jr., MD [facility] [place] [address] [place] [address] Referral ID Status Reason Start Date Expiration Date V isits Requested Visits Authorized [id number] Closed Test Only 03/26/2023 03/25/2024 1 1 Encounter Details Date Type Department Care Team (Late st Contact Info) Description 03/27/2023 1:00 PM EDT Procedure visit Urology at [facility] [place] [address] Luis Michael Jr., MD [facility] [place] [address] Nephrolithiasis Social History Tobacco Use Types Packs/Day Years Used Date Smoking Tobacco: Never Passive Smoke Exposure: Never Smokeless Tobacco: Never Alcohol Use Standard Drinks/Week Comments No 0 (1 standard drink = 0.6 oz pur e alcohol) [facility] Inpatient Questions Answer Date Recorded Does Anyone [...] Sign Reading Time Taken Comments Blood Pressure 127/78 03/27/2023 1:10 PM EDT Pulse 67 03/27/2023 1:10 PM EDT Temperature - - Respiratory Rate - - Oxygen Saturation 100% 03/27/2023 1:10 PM EDT Inhaled Oxygen Concentration - - Weight - - Height - - Body Mass Index - - documented in this encounter Patient Instructions * Patient Instructions* Romy Ogden RN - 03/27/2023 1:00 PM EDT Instructions following Cystoscopy Activity: As tolerated by your comfort level. Fluids: You should increase your water today. Avoid coffee, tea and cola. You do not need to mylabf14 ounces of water today. Urination: You will likely have a small amount of blood in your urine for the next several days. This is normal; however, if you are passing large amounts of blood clots or are unable to void please call our office at [phone] before 5PM or [phone] after hours. Please call if: * you have copious blood in your urine * fevers greater than 101.3 F * you are unable to void The number for questions is [phone] before 5 PM weekdays and [phone] after 5 PM and weekends. Follow-up: 6-8 weeks with a Renal US and see Dr. Michael, do a 24 hour urine prior documented in this encounter Progress Notes * Luis Michael Jr., MD - 03/27/2023 1:00 PM EDT Images from the original note were not included. HPI: Stacy Albright is a 57 y.o. female who returns for left ureteral stent removal after undergoing left ureteroscopy and follow up regarding mixed CaPhos/ CaOx nephrolithiasis.. [...] of stone or hydronephrosis. At most recent visit in 2021 ultrasound suggested a 4 to 6 mm left lower pole stone, which she opted to treat at 01/2023 visit. Metabolic evaluation with 24-hour urine notable for mild hypercalciuria. We discussed trial of thiazide which she had initially declined, but has now started at low dose 12.5mg daily in light of concomitant osteoporosis under the care of Dr Hinojosa. She underwent left URS on 03/15/23. Intraoperative findings were notable for narrowed distal left ureter could initially only [...] Fluoroscopically and endoscopically stone free at procedure conclusion. She presents today for planned stent removal. PMHx: migraines, GERD, urolithiasis, osteoporosis PSurgHx: SWL, left ureteroscopy, multiple orthopedic surgeries. FamHx: no history of urolithiasis SocHx: no tobacco history; no alcohol use She reports her approximately 2 months ago. She cares for her grandchild and her parents DietHx: 3-4 liters fluid intake/day; low sodium intake; moderate purine/animal protein intake; moderate oxalate intake; moderate dairy intake . Stone Analysis: 70% Calcium phosphate (apatite). 20% Calcium oxalate dihydrate. 10% Calcium oxalatemonohydrate. We discussed the procedure, risks and planned benefit. We discussed the need to remove the stent asthey cannot stay in indefinitely, as well as the risk of possible need for stent or nephrostomy replacement if there was any residual or future ureteral obstruction. Informed consent was obtained. Stacy Albright was taken to the cystoscopy room and prepped and draped by our urology nurse. Prophylactic antibiotic administration was confirmed. Topical viscous lidocaine gel was applied to the urethra for local anesthetic. A timeout was performed. Flexible cystoscopy was performed. The urethra was without abnormality. The bladder was entered and inspected. No focal mucosal abnormality was seen.The stent was seen emanating from the left ureteral orifice. It was grasped and extracted. It was inspected and found to be intact. She tolerated the procedure well. I instructed Stacy Albright of the need to return in approximately 8-10 weeks for renal ultrasound to ensure that there is no residual hydronephrosis. I cautioned her to contact us immediately with increasing pain, fever, or chills as this could suggest obstruction and may need to be further evaluated on an urgent or emergent basis. I have asked her to call with any additional questions. Impression/Plan: Doing well s/p left URS . Stent removed without difficulty. 1) Plan reimaging in 6-10 weeks to assess for resolution of any hydronephrosis 2)Mixed CaPhos/CaOx stone. We reviewed general dietary modifications for those with calcium stones.We discussed the role of a low sodium diet with increased hydration, targeting 2.5 liters urine output daily. 3) mild hypercalciuria. She is now on HCTZ 12.5mg daily (started by Dr Hinojosa), tolerating well. Plan repeat 24h urine in approximately 6 weeks to assess efficacy for addressing hypercalciuria. Will order BMP for follow up to reassess serum calcium, potassium, and sodium documented in this encounter Procedure Notes * Luis Michael Jr., MD - 03/27/2023 1:00 PM EDTAssociated Order(s): CYSTO, STENT REMOVAL Procedure(s): CYSTO, STENT REMOVAL Pre-Procedure Diagnose(s): Nephrolithiasis HPI: Stacy Albright is a 57 y.o. female who returns for left ureteral stent removal after undergoing left ureteroscopy. She underwent left URS on 03/15/23. Intraoperative findings were notable for narrowed distal left ureter could initially only [...] Fluoroscopically and endoscopically stone free at procedure conclusion. She presents today for planned stent removal. Stone Analysis: 70% Calcium phosphate (apatite). 20% Calcium oxalate dihydrate. 10% Calcium oxalatemonohydrate. We discussed the procedure, risks and planned benefit. We discussed the need to remove the stent asthey cannot stay in indefinitely, as well as the risk of possible need for stent or nephrostomy replacement if there was any residual or future ureteral obstruction. Informed consent was obtained. Stacy Albright was taken to the cystoscopy room and prepped and draped by our urology nurse. Prophylactic antibiotic administration was confirmed. Topical viscous lidocaine gel was applied to the urethra for local anesthetic. A timeout was performed. Flexible cystoscopy was performed. The urethra was without abnormality. The bladder was entered and inspected. No focal mucosal abnormality was seen.The stent was seen emanating from the left ureteral orifice. It was grasped and extracted. It was inspected and found to be intact. She tolerated the procedure well. I instructed Stacy Albright of the need to return in approximately 8-10 weeks for renal ultrasound to ensure that there is no residual hydronephrosis. I cautioned her to contact us immediately with increasing pain, fever, or chills as this could suggest obstruction and may need to be further evaluated on an urgent or emergent basis. I have asked her to call with any additional questions. Impression/Plan: Doing well s/p left URS . Stent removed without difficulty. 1) Plan reimaging in 6-10 weeks to assess for resolution of any hydronephrosis documented in this encounter Plan of Treatment Upcoming Encounters Date Type Department Care Team (Late st Contact Info) Description 08/07/2024 3:30 PM EST Office Visit Orthopaedics at [place] [phone] Tarik Henry MD [facility] DR [place]THOPAED[place] [address] 09/22/2024 7:00 AM EST Appointment Ultrasound at [place] [phone] Luis Michael Jr., MD [facility] [place] [address] 09/22/2024 8:00 AM EST Office Visit Urology at [place] [phone] Lius Michael Jr., MD [facility] [place] [address] documented as of this encounter Procedures Procedure Name Priority Date/Time Associated Diagnosis Comments CYSTO, STENT REMOVAL Routine 03/27/2023 1:00 PM EDT Nephrolithiasis documented in this encounter Results * CYSTO, STENT REMOVAL (03/27/2023 1:00 PM EDT) Narrative Luis Michael Jr., MD - 03/27/2023 1:00 PM EDT Luis Michael Jr., MD ? 03/27/2023 ??1:59 PM HPI: ??Stacy Albright is a 57 y.o. female who returns for left ureteral stent removal after undergoing left ureteroscopy. ? She underwent left URS on 03/15/23. ??Intraoperative findings were notable for narrowed distal left ureter could initially only accept pediatric 4.5fr needlescope ureteroscope, dilated to allow passage of standard 6.9fr ureteroscope. ??Ureter remained too narrow to allow passage of flexible ureteroscope, thus distal ureter dilated with tapered 9fr inner dilator of access sheath, finally allowing passage of flex x ureteroscope. ??Kidney fully inspected, two small left lower pole renal stones were identified, grasped, and extracted. Fluoroscopically and endoscopically stone free at procedure conclusion. ??She presents today for planned stent removal. Stone Analysis: 70% Calcium phosphate (apatite). 20% Calcium oxalate dihydrate. ??10% Calcium oxalate monohydrate. ?? We discussed the procedure, risks and planned benefit. We discussed the need to remove the stent as they cannot stay in indefinitely, as well as the risk of possible need for stent or nephrostomy replacement if there was any residual or future ureteral obstruction. Informed consent was obtained. Stacy Albright was taken to the cystoscopy room and prepped and draped by our urology nurse. ??Prophylactic antibiotic administration was confirmed. ??Topical viscous lidocaine gel was applied to the urethra for local anesthetic. A timeout was performed. ??Flexible cystoscopy was performed. ??The urethra was without abnormality. ??The bladder was entered and inspected. ??No focal mucosal abnormality was seen. ??The stent was seen emanating from the left ureteral orifice. ??It was grasped and extracted. ?? It was inspected and found to be intact. ??She tolerated the procedure well. ?? I instructed ??Stacy Albright ??of the need to return in approximately 8-10 weeks for renal ultrasound to ensure that there is no residual hydronephrosis. ??I cautioned her to contact us immediately with increasing pain, fever, or chills as this could suggest obstruction and may need to be further evaluated on an urgent or emergent basis. ??I have asked her to call with any additional questions. Impression/Plan: Doing well s/p left URS . ??Stent removed without difficulty. 1) Plan reimaging in 6-10 weeks to assess for resolution of any hydronephrosis Luis Michael Jr., MD URO PROCEDURE W RF L ORDERABLES documented in this encounter Visit Diagnoses Diagnosis Nephrolithiasis Calculus of kidney documented in this encounter Administered Medications Inactive Administered Medications - up to 3 most recent administrations Medication Order MAR Action Action Date Dose Rate Site sulfamethoxazole-trimethoprim DS (Bactrim DS) 800-160 mg per tablet 1 tablet 1 tablet, Oral, ONCE, 1 dose, On Sat03/27/23 at 1300, Routine, Indication for (Active or Suspected): Prophylaxis Given 03/27/2023 1:00 PM EDT 1 tablet documented in this encounter Care Teams Engine Builder Relationship Specialty Start Date End Date Janet Davey APRN PCP - General Family Medicine 07/13/20 02/10/24 documented as of this encounter
--- OUTSIDE RECORDS SUMMARY | 2024-07-20 18:27 | XMS_ITS | Encounter Summary ---
Author Organization [facility] [place] [address] Care Team Providers Care Wire Spiral Binder Name Role Phone Janet Davey SACHA Primary Care Provider [phone] Encounter Details Date Type Department Care Team (Late st Contact Info) Description 01/09/2023 Telephone [place] [phone] Gill Alarcon RN Social History Tobacco Use Types Packs/Day [...] encounter Miscellaneous Notes * Telephone Encounter - Gill Alarcon RN - 01/09/2023 3:08 PM EDT Call returned to [place] with pulmonary rehab. Upon arrival to pulmonary rehab; standing HR was 140-170's. She notes that her HR came down into 80's after being seated and resting. Notes patient c/o feeling awful the past few days; lots of difficuly managing variable HR and low oxygen saturations. She reports that during pulmonary rehab, her saturations were high 80's. HR 150's. They had to stop as the patient c/o chest pain, chest tightness and increased SOB. Sx resolved after rest. They hadto end session early and cannot see patient back if she's having chest pain with her rehab sessions. They reviewed when to seek ED care. Call to patient. She notes the past couple days she's felt awful. She's been struggling with variabl ehigh pulse rates(150's with walking slolwy) and low oxygen levels. She reprots that she has associated chest pain when her HR gets high and/or her oxygen level is low. Yesterday oxygen level dropped and I could not get my oxygen under control all day. Notes oxygen variable into the 60's, 70's, 80's. Yesterday, states, I felt terrible all day. My chest hurt all day. She recalls HR was in the 150's just with walking. Reports when her oxygen level drops or HR increases, she has associated chest pain. Denies ?? N/v ?? Denies pain into jaw, arm or neck. ?? Peripheral edema ?? Fevers or chills She feels she's probably gained a couple lsbs over the past few days. Per Dr. Norman, full pulmonary negative workup here in clinic. Present to the ED as she is having chest pain. Call to patient and reviewed. The patient indicates understanding of these issues and agrees with the plan. * Telephone Encounter - Gill Alarcon RN - 01/09/2023 3:07 PM EDT Copied from [facility] #[id number]. Topic: Specialty Dept CRMs - Generic Call >> January 09, 2023 2:33 PM Windy Jane wrote: Specialist: Tong Norman MD Relationship (if other than patient-full name): [facility] Reason for Call: Sarah is calling from [facility] to speak with a nurse about symptoms that this patient has been having. Please call to advise. documented in this encounter Plan of Treatment Upcoming Encounters Date Type Department Care Team (Late st Contact Info) Description 08/07/2024 3:30 PM EST Office Visit Orthopaedics at [place] [address] Tarik Henry MD [facility] [place] [address] 09/22/2024 7:00 AM EST Appointment Ultrasound at [address] Luis Michael Jr., MD [facility] [place] [address] 09/22/2024 8:00 AM EST Office Visit Urology at [place] [phone] Luis Michael Jr., MD [facility] [place] [address] documented as of this encounter Visit Diagnoses Not on filedocumented in this encounter Care Teams Wire Spiral Binder Relationship Specialty Start Date End Date Janet Davey APRN PCP - General Family Medicine 07/13/20 02/10/24 documented as of this encounter
--- OUTSIDE RECORDS SUMMARY | 2024-07-20 18:27 | XMS_ITS | Encounter Summary ---
Author Organization [facility] [place] [address] Care Team Providers Care Parachute Officer Name Role Phone Janet Davey APRN Primary Care Provider [phone] Encounter Details Date Type Department Care Team (Late st Contact Info) Description 12/18/2022 Telephone [place] [address] Yuki Faye Social History Tobacco Use Types Packs/Day Years [...] 3:30 PM EST Office [place] [address] Tarik Henry MD [facility] ORTHOPAEDIC SURGERY [place], [place] [phone] 09/22/2024 7:00 AM EST [place] [address] Luis Michael Jr., MD [facility] [place] [address] 09/22/2024 8:00 AM EST [place] [address] Luis Michael Jr., MD [facility] [place] [address] documented as of this encounter Visit Diagnoses Not on filedocumented in this encounter Care Teams Parachute Officer Relationship Specialty Start Date End Date Janet Davey APRN PCP - General Family Medicine 07/13/20 02/10/24 documented as of this encounter
--- OUTSIDE RECORDS SUMMARY | 2024-07-20 18:27 | XMS_ITS | Encounter Summary ---
Author Organization [facility] [place] [address] Care Team Providers Care Senior Systems Administrator Name Role Phone Janet Davey APRN Primary Care Provider [phone] Reason for Visit * Auth/Cert (Routine) Specialty Diagnoses / Procedures Referred By Alberta t Referred To Contact Diagnoses stone Procedures PRO CYSTO/URETEROSCOPY W/LITHOTRIPSY INC INDWELLING STENT INSERTION CYSTOURETEROSCOPY,DIAGNOSTI C,W/ LITHOTRIPSY INC. INSERTION OF INDWELLING URETERAL STENT (WRVU 8) MODIFIER HOLMIUM LASER Ferdinand Michael Jr., MD [facility] [place] [place] [address] [facility] Referral ID Status Reason Start Date Expiration Date Visits Re quested Visits Authorized [id number] 1 1 Encounter Details Date Type Department Care Team (Latest Contact Info) Description 03/15/2023 7:34 AM EDT - 03/15/2023 11:51 AM EDT Hospital Encounter [place] [address] Ferdinand Michael Jr., MD [facility] [place] [address] Discharge Disposition: Home Social History Tobacco Use [...] closest emergency room or call the hospital sleeve presser operator at [phone] and ask for physician recreation engineer covering for your physician. Questions or problems after 5pm or on a weekend: Call the [facility] sleeve presser operator at and ask for the physician recreation engineer covering for your doctor. * Patient Instructions* [...] removal in the Urology clinic. Please call [phone] if you do not receive your appointment. Future Appointments Date Time Provider Department Center 03/27/2023 10:00 AM SCHEDULE 1, PFT PFT [facility] 03/27/2023 10:30 AM Tong Norman MD [facility] It is important to remember that your [...] azelastine (ASTELIN) 137 mcg (0.1 %) Aerosol, Clay as needed. 0 06/17/2017 SUMAtriptan (IMITREX) 100 [...] 07/04/2023 ipratropium (ATROVENT) 21 mcg (0.03 %) Clay, Non-AerosolIndication s:Vasomotor rhinitis 2 sprays by Nasal [...] performed by Ferdinand Michael Jr., MD at [facility] MAIN OR SHOULDER SURGERY Right 07/2019 No [...] 3 ipratropium (ATROVENT) 21 mcg (0.03 %) Clay, Non-Aerosol 2 sprays by Nasal route 2 [...] azelastine (ASTELIN) 137 mcg (0.1 %) Aerosol, Clay instill 1 spray into each nostril twice [...] and all questions answered -- Abx: Ancef recreation engineer to OR -- VTE ppx: SCDs -- Dispo: Plan for same day procedure Procedure(s): CYSTOURETEROSCOPY,DIAGNOSTIC,W/ LITHOTRIPSY INC. INSERTION OF INDWELLING URETERAL STENT (WRVU 8) MODIFIER HOLMIUM LASER Reagan Dale MD documented in this encounter Miscellaneous Notes * Brief Op Note - Ferdinand Michael Jr., MD - 03/15/2023 10:25 AM EDT Brief Operative Note Patient Name: Stacy Albright : [id number] MR#: [id number] Case Date: 03/15/2023 Surgeon: Surgeon(s) and Role: [...] Dale MD - 03/15/2023 9:09 AM EDT [facility] Operative Note Patient Name: Stacy Albright : [id number] MR#: [id number] Case Date: 03/15/2023 Surgeon: Surgeon(s) and Role: [...] bladder mucosa without mucosal lesions. A 5 Latvian Pollack catheter was inserted into the left [...] ureter. It would not accommodate the 11 Latvian outer sheath. Next, the Flex-X ureteroscope was [...] 3:30 PM EST Office [place] [phone] Tarik Henry MD [facility] [place] [address] 09/22/2024 7:00 AM EST Appointment [place] [phone] Ferdinand Michael Jr., MD [facility] [place] [address] 09/22/2024 8:00 AM EST [place] [address] Ferdinand Michael Jr., MD [facility] [place] [address] documented as of this encounter Procedures Procedure Name Priority Date/Time Associated Diagnosis Comments XR FLUORO NO RAD <1HR - OR USE Routine 03/15/2023 10:31 AM EDT KIDNEY STONE ANALYSIS Routine 03/15/2023 10:00 AM EDT Cystoscopy, Insert Ureteral Stent (38427) 03/15/2023 8:49 AM EDT stone Cystoscopy, Tx Ureteral Stricture (62632) 03/15/2023 8:49 AM EDT stone Cysto/Uretero/Pyelo scopy, Calculus Tx (75022) 03/15/2023 8:49 AM EDT stone documented in [...] developed and its performance characteristics ?determined by [facility] in a manner consistent with CLIA ?requirements. This test has not been cleared or approved by ?the U.S. Food and Drug Administration. ?Test Performed by: ?[facility] ?[address] [id number] ?Teller Manager: Kirit Kaplan M.D. Ph.D.; CLIA# [id number] [facility] Calculus 03/15/2023 10:0 0 AM EDT 03/15/2023 11:34 AM EDT Narrative Resulting Agency Comment Spec In Lab Ferdinand Michael Jr., MD LAB SEND OUT ORDER [facility] [address] [place] [address] documented in this encounter Visit Diagnoses Not on filedocumented in this encounter Administered Medications Inactive Administered Medications - up to 3 most recent administrations Medication Order MAR Action Action Date Dose Rate Site ketorolac (Toradol) (30 mg/mL) injection 15 mg [...] mL Mini-Bag Plus (COMPLETED) 2 g, Intravenous, GRADER TENDER TO O.R., 1 dose, On Sat03/15/23 at 0800, Administer over 30 Minutes, Indication for (Active or Suspected): Prophylaxis 0904 (New Bag - Prov ider: Camron Murray CRNA) ketorolac (Toradol) (30 mg/mL) injection 15 mg [...] (Due) documented in this encounter Care Teams Senior Systems Administrator Relationship Specialty Start Date End Date Janet Davey APRN PCP - General Family Medicine 07/13/20 02/10/24 documented as of this encounter
--- OUTSIDE RECORDS SUMMARY | 2024-07-20 18:27 | XMS_ITS | Encounter Summary ---
Author Organization [facility] [place] [address] Care Team Providers Care Tuber Machine Operator Helper Name Role Phone Janet Davey APRN Primary Care Provider [phone] Encounter Details Date Type Department Care Team (Latest Contact Info) Description 01/11/2023 Travel Social History Tobacco Use Types Packs/Day [...] 3:30 PM EST Office [place] [phone] Tarik Henry MD [facility] [place] [address] 09/22/2024 7:00 AM EST [place] [phone] Luis Michael Jr., MD [facility] [place] [address] 09/22/2024 8:00 AM EST [place] [address] Luis Michael Jr., MD [facility] [place] [address] documented as of this encounter Visit Diagnoses Not on filedocumented in this encounter Care Teams Tuber Machine Operator Helper Relationship Specialty Start Date End Date Janet Davey APRN PCP - General Family Medicine 07/13/20 02/10/24 documented as of this encounter
--- OUTSIDE RECORDS SUMMARY | 2024-07-20 18:27 | XMS_ITS | Encounter Summary ---
Author Organization [facility] [place] [address] Care Team Providers Care Media Developer Name Role Phone Janet Davey APRN Primary Care Provider [phone] Encounter Details Date Type Department Care Team (Latest Contact Info) Description 12/25/2022 Travel Social History Tobacco Use Types Packs/Day [...] 3:30 PM EST Office [place] [phone] Tarik Henry MD [facility] [place] [address] 09/22/2024 7:00 AM EST [place] [phone] Luis Michael Jr., MD [facility] [address] 09/22/2024 8:00 AM EST Office [place] [address] Luis Michael Jr., MD [facility] [place] [address] documented as of this encounter Visit Diagnoses Not on filedocumented in this encounter Care Teams Media Developer Relationship Specialty Start Date End Date Janet Davey APRN PCP - General Family Medicine 07/13/20 02/10/24 documented as of this encounter
--- OUTSIDE RECORDS SUMMARY | 2024-07-20 18:27 | XMS_ITS | Encounter Summary ---
Author Organization [facility] [place] [address] Care Team Providers Care Oxygen Equipment Aide Name Role Phone Janet Davey APRN Primary Care Provider [phone] Encounter Details Date Type Department Care Team (Late st Contact Info) Description 03/15/2023 Interpretation Only Radiology [address] [place] [address] [place] [address] Unknown None Social History Tobacco Use Types Packs/Day Years Used Date Smoking Tobacco: Never Passive Smoke Exposure: Never Smokeless Tobacco: Never Alcohol Use Standard Drinks/Week Comments No 0 (1 standard drink = 0.6 oz pur e alcohol) [facility] Inpatient Questions Answer Date Recorded [...] 3:30 PM EST Office Visit Orthopaedics at [facility] [place] [phone] Tarik Henry MD [facility] [place] [address] 09/22/2024 7:00 AM EST [place] [phone] Luis Michael Jr., MD [facility] [place] [address] 09/22/2024 8:00 AM EST [place] [phone] Luis Michael Jr., MD [facility] [place] [address] documented as of this encounter Procedures Procedure Name Priority Date/Time Associated Diagnosis Comments DH OR ENDOSCOPY Routine 03/15/2023 documented in this encounter Results * DH OR Endoscopy (03/15/2023) Anatomical Region Laterality Modality Other 03/15/2023 Narrative 03/15/2023 12:00 AM EDT Photographs - Images Procedure Note Unknown - 03/15/2023 Photographs - Images Unknown EA IMAGES documented in this encounter Visit Diagnoses Not on filedocumented in this encounter Care Teams Oxygen Equipment Aide Relationship Specialty Start Date End Date Janet Davey APRN PCP - General Family Medicine 07/13/20 02/10/24 documented as of this encounter
--- OUTSIDE RECORDS SUMMARY | 2024-07-20 18:27 | XMS_ITS | Encounter Summary ---
Author Organization [facility] [place] [address] Care Team Providers Care Ammonia Technician Name Role Phone Janet Davey APRN Primary Care Provider [phone] Encounter Details Date Type Department Care Team (Latest Contact Info) Description 02/18/2023 Travel Social History Tobacco Use Types Packs/Day [...] 3:30 PM EST [place] [phone] Tarik Henry MD [facility] [place] [address] 09/22/2024 7:00 AM [place] [phone] Luis Michael Jr., MD [facility] [place] [address] 09/22/2024 8:00 AM EST [place] [address] Luis Michael Jr., MD [facility] [place] [address] documented as of this encounter Visit Diagnoses Not on filedocumented in this encounter Care Teams Ammonia Technician Relationship Specialty Start Date End Date Janet Davey APRN PCP - General Family Medicine 07/13/20 02/10/24 documented as of this encounter
--- OUTSIDE RECORDS SUMMARY | 2024-07-20 18:27 | XMS_ITS | Encounter Summary ---
Author Organization [facility] [place] [address] Care Team Providers Care Spindle Sander Name Role Phone Janet Davey APRN Primary Care Provider [phone] Reason for Visit * Reason Comments Medication Refill Encounter Details Date Type Department Care Team (Late st Contact Info) Description 07/02/2023 Refill [place] [address] Maile Hinojosa MD [facility] [place] [address] Social History Tobacco Use Types Packs/Day Years Used Date Smoking Tobacco: Never Passive Smoke Exposure: Never Smokeless Tobacco: Never Alcohol Use Standard Drinks/Week Comments No 0 (1 standard drink = 0.6 oz pur e alcohol) [facility] Inpatient Questions Answer Date Recorded [...] 3:30 PM EST Office Visit [place] [address] Tarik Henry MD [facility] [place] [address] 09/22/2024 7:00 AM EST Appointment Ultrasound at [place] [phone] Luis Michael Jr., MD [facility] [place] [address] 09/22/2024 8:00 AM EST Office Visit Urology at [place] [phone] Luis Michael Jr., MD [facility] [place] [address] documented as of this encounter Visit Diagnoses Not on filedocumented in this encounter Care Teams Spindle Sander Relationship Specialty Start Date End Date Janet Davey APRN PCP - General Family Medicine 07/13/20 02/10/24 documented as of this encounter
--- OUTSIDE RECORDS SUMMARY | 2024-07-20 18:27 | XMS_ITS | Encounter Summary ---
Author Organization [facility] [place] [address] Care Team Providers Care Finance Vice President Name Role Phone Janet Davey APRN Primary Care Provider [phone] Encounter Details Date Type Department Care Team (Late st Contact Info) Description 11/16/2022 [place] [address] Nicole Cheng RT Social History Tobacco Use [...] Telephone Encounter - Nicole Cheng RT - 11/16/2022 11:28 AM EDT Called Stacy on her cellphone., LM following up on her respiratory status. documented in this encounter Plan of Treatment Upcoming Encounters Date Type Department Care Team (Late st Contact Info) Description 08/07/2024 3:30 PM EST Office [place] [address] Tarik Henry MD [facility] [place] [address] 09/22/2024 7:00 AM EST Appointment [place] [address] Luis Michael Jr., MD [facility] [place] [address] 09/22/2024 8:00 AM EST Office Visit Urology at [place] [phone] Luis Michael Jr., MD [facility] [place] [address] documented as of this encounter Visit Diagnoses Not on filedocumented in this encounter Care Teams Finance Vice President Relationship Specialty Start Date End Date Janet Davey APRN PCP - General Family Medicine 07/13/20 02/10/24 documented as of this encounter
--- OUTSIDE RECORDS SUMMARY | 2024-07-20 18:27 | XMS_ITS | Encounter Summary ---
Author Organization [facility] [place] [address] Care Team Providers Care Photographic Hand Developer Name Role Phone Janet Davey SACHA Primary Care Provider Encounter Details Date Type Department Care Team (Late st Contact Info) Description 03/21/2023 Telephone [place] [phone] Fuentes Mantilla, RN Social History Tobacco Use Types Packs/Day Years Used Date Smoking Tobacco: Never Passive Smoke Exposure: Never Smokeless Tobacco: Never Alcohol Use Standard Drinks/Week Comments No 0 (1 standard drink = 0.6 oz pur e alcohol) [facility] Inpatient Questions Answer Date Recorded Does [...] encounter Miscellaneous Notes * Telephone Encounter - Fuentes Mantilla, RN - 03/21/2023 3:25 PM EDT Spoke with Stacy message sent to urology personal secretary requesting this is a Dr Michael patient needs stent removal hope to have 03/27 as she has other appointments this RN approves if OK with Dr Michael please call patient today to confirm Copied from [facility] #[id number]. Topic: Specialty Dept CRMs - Generic Call >> Mar 21, 2023 9:47 AM Romy Hurst wrote: Specialist: Dr. Michael Relationship (if other than patient-full name): self Reason for Call: Patient calling, states her stent does not have a string, so she is wondering whatto expect as far as removal goes when she comes in next week. Can you please advise? documented in this encounter Plan of Treatment Upcoming Encounters Date Type Department Care Team (Late st Contact Info) Description 08/07/2024 3:30 PM EST Office Visit Orthopaedics at [place] [phone] Tarik Henry MD [facility] [place] [address] 09/22/2024 7:00 AM EST Appointment Ultrasound at [place] [phone] Luis Michael Jr., MD [facility] [place] [address] 09/22/2024 8:00 AM EST Office Visit Urology at [place] [phone] Luis Michael Jr., MD [facility] [place] [address] documented as of this encounter Visit Diagnoses Not on filedocumented in this encounter Care Teams Photographic Hand Developer Relationship Specialty Start Date End Date Janet Davey APRN PCP - General Family Medicine 07/13/20 02/10/24 documented as of this encounter
--- OUTSIDE RECORDS SUMMARY | 2024-07-20 18:27 | XMS_ITS | Encounter Summary ---
Author Organization Formerly [facility] [place] [address] Care Team Providers Care Chorus Dancer Name Role Phone Janet Davey APRN Primary Care Provider [phone] Reason for Visit * Auth/Cert (Routine) Specialty Diagnoses / Procedures Referred By Contac t Referred To Contact Diagnoses stone Procedures PRO CYSTO/URETEROSCOPY W/LITHOTRIPSY INC INDWELLING STENT INSERTION CYSTOURETEROSCOPY,DIAGNOSTI C,W/ LITHOTRIPSY INC. INSERTION OF INDWELLING URETERAL STENT (WRVU 8) MODIFIER HOLMIUM LASER Luis Michael Jr., MD [facility] [place] [address] [facility] Referral ID Status Reason Start Date Expiration Date Visits Re quested Visits Authorized [id number] 1 1 Encounter Details Date Type Department Care Team (Late st Contact Info) Description 03/15/2023 8:48 AM EDT Anesthesia Event [place] [address] Alonso Stratton MD [facility] [place] [address] Penny Horton MD [facility] [place] [address] Anesthesia Record Procedure Summary Procedure Name Responsible Anesthesiologist Anesthesia Start Time Anesthesia Stop Time CYSTOURETHROSCOPY WITH URETEROSCOPY, W\REMOVAL, MANIPULATION OF CALCULUS (WRVU 6.75) (Left: Bladder) Alonso Stratton MD 03/15/23 0848 03/15/23 1017 Events Date Time Event Comment 03/15/2023 0815 0848 Start 0849 AN Verify 0850 An Start Data 0852 An Induction 0854 An Intubation 0856 Anesthesia Ready 1012 Extubation/LMA Out 1013 an stop data 1017 Recovery or ICU Handoff Elizabeth ent care was transferred to the destination unit staff after review of the patient's medical history, current anesthetic/surgical status and plan, according to the Provider Handoff Checklist. 1017 Stop Meds Name Total Midazolam 2 mg IV Lidocaine 100 mg Propofol 250 mg Rocuronium 50 mg Ondansetron 8 mg Dexamethasone 8 mg Propofol INF 769.94 mg ceFAZolin (Ancef) 2 g vial a ttach to sodium chloride 0.9% 100 mL Mini-Bag Plus 2 g Dexmedetomidine 8 mcg Dexmedetomidine INF 18.73 mcg acetaminophen IV 1,000 mg Sugammadex 150 mg lactated ringers infusion 900 mL * Agents Name O2 * Blood No blood administrations on file. Lines, Drains, and Airways Type Details Placement Removal (RETIRED) Peripheral IV Line - Single Lumen 03/15/23; 0817; metacarpal vein (top of hand), left; [id number] catheter system; Anatomical Landmarks; 20 gauge; distraction, intradermal injection, tolerated well; 03/15/23; 1122 03/15/23 0817 by Cece Cedillo RN 03/15/23 1122 by Candace Moralez RN ETT ETT Type: Cuffed, Or al; ETT Size: 7 mm; Mac Blade: 3; Notes: Asleep, Pre-O2, Cricoid Pressure, Stylette; Attempts: 1; Laryngoscopy Grade: 3; ETT Placement Verified By: Auscultation, Capnometry, Visual; Secured at Teeth: 22 cm; Inserted by: Camron Murray CRNA; Removal Date: 03/15/23; Removal Time: 1015 03/15/23 0854 by Camron Murray CRNA 03/15/23 1015 by Camron Murray CRNA documented in this encounter Social History Tobacco [...] AM EDT documented as of this encounter OR Notes * Anesthesia Postprocedure Evaluation - Alonso Stratton MD - 03/15/2023 10:48 AM EDT Department of Anesthesiology Post-procedure Note Patient: Stacy Albright Procedure Summary Date: 03/15/23 Room / Location: [facility] [place] OR [address] [place] [address] [facility] Anesthesia Start: 847 Anesthesia Stop: 101 Procedures: CYSTOURETHROSCOPY WITH UTETEROSCOPY, W\REMOVAL, MANIPULATION OF CALCULUS (WRVU 6.75) (Left: Bladder) CYSTOURETHROSCOPY, BALLOON DILATION OF URETERAL STRICTURE (WRVU 5.35) (Left: Bladder) CYSTO, STENT PLACEMENT (WRVU 2.82) (Left: Bladder) Diagnosis: (stone) Surgeons: Luis Michael Jr., MD Responsible Provider: Alonso Stratton MD Anesthesia Type: general ASA Status: 3 All Anesthesia Providers: Anesthesiologist: Alonso Stratton MD NEUROCRITICAL CARE PHYSICIAN: Camron Murray CRNA Vitals Value Taken Time BP 106/62 03/15/23 1030 Temp 35.5 ??C (95.9 ??F) 03/15/23 1016 Pulse 55 03/15/23 1038 Resp 16 03/15/23 1030 SpO2 100 % 03/15/23 1039 Pain Level Vitals shown include unvalidated device data. Patient Location: PACU/[facility] Level of Consciousness: Awake and Alert Pain Management: Satisfactory Analgesia PONV: PONV Resolved with Rx Cardiovascular Status: At Baseline and Hemodynamically Stable Respiratory Status: At Baseline and Supplemental O2 (NC or FM) Postoperative Fluid Status: Intravascular EUvolemia Possible Anesthetic Complications: NONE apparent at time of evaluation Final Primary Anesthesia Type: General (The anesthetic type performed was the same as planned.) Comments: ALONSO STRATTON MD * Anesthesia Preprocedure Evaluation - Alonso Stratton MD - 03/14/2023 5:30 PM EDT Pre-Anesthesia Evaluation for: Stacy Albright a 57 y.o. female. Procedure(s): CYSTOURETEROSCOPY,DIAGNOSTIC,W/ LITHOTRIPSY INC. INSERTION OF INDWELLING URETERAL STENT (WRVU 8) MODIFIER HOLMIUM LASER Patient Active Problem List Diagnosis Date Noted [...] Procedure Laterality Date ??? CREATED BY INTERFACE AlejandraSJosephWGuido(MSUROL) Procedure Date: 01/16/2008 ??? KNEE SURGERY 03/01/14 Right knee; patella surgery ??? LITHOTRIPSY ? ? PRO CYSTOURETHROSCOPY, FULGUR <.5CM LESN N/A 04/18/2017 CYSTO, FULGURATION\BLADDER LESION\W\WO BX\LESS THAN 0.5CM (WRVU 4.05) performed by Luis Michael Jr., MD at [facility] MAIN OR ??? SHOULDER SURGERY Right 07/2019 Social History Tobacco Use ??? Smoking status: Never ??? Smokeless tobacco: Never Substance Use Topics ??? Alcohol use: No Social History Substance and Sexual Activity Drug Use No Allergies Allergen Reactions ??? Grass Pollen-[place], Standard Other (See Comments) Runny nose, itching, sneezing ??? Mold Extracts Other (See Comments) Sneezing and runny nose Medications: MAR and/or home medications have been reviewed. Physical Exam: Preprocedure Vitals Current as of 03/14/23 1730 No BP, pulse, respiration, SpO2, or temperature recorded. Height: Weight: BMI: IBW: Airway Assessment: Mallampati: II Cardiovascular Assessment: system normal Pulmonary Assessment: unlabored breathing Dental Assessment: Misc Assessment: IV access: Peripheral line Last Filed Perioperative Cognitive Screening None Anesthesia Plan: ASA 3 general, with a(n) intravenous induction Cysto / stent Post COVID syndrome Reports using O2 and Sats in 70s when shopping (December 2022) - unchanged D/w pt possible need for admission and oop cost for ambulance Wishes to proceed GA/LMAvsETT Informed Consent: Anesthetic plan and risks discussed with patient. Plan discussed with NEUROCRITICAL CARE PHYSICIAN. Anesthesia Screening documented in this encounter Plan of Treatment Upcoming Encounters Date Type Department Care Team (Late st Contact Info) Description 08/07/2024 3:30 PM EST Office [place] [phone] Tarik Henry MD [facility] [place] [address] 09/22/2024 7:00 AM EST Appoint[place] [phone] Luis Michael Jr., MD [facility] [place] [address] 09/22/2024 8:00 AM EST Office Visit Urology at [facility] [place] [phone] Luis Michael Jr., MD [facility] [place] [address] documented as of this encounter Visit Diagnoses Not on filedocumented in this encounter Administered Medications Inactive Administered Medications - up to 3 most recent administrations Medication Order MAR Action Action Date Dose Rate Site acetaminophen (Ofirmev) (1,000 mg/100 mL) infusion Intravenous, Administer over 15 Minutes, PRN, Starting on Sat03/15/23 at 0924, Until Sat03/15/23 at 1025, Anesthesia Intra-op, Routine Given 03/15/2023 9:24 AM EDT 1,000 mg ceFAZolin (Ancef) 2 g vial attach to sodium chloride 0.9% 100 mL Mini-Bag Plus 2 g, Intravenous, SUPERVISOR STRIPPING TO O.R., 1 dose, On Sat03/15/23 at 0800, Administer over 30 Minutes, Indication for (Active or Suspected): Prophylaxis New Bag 03/15/2023 9:04 AM EDT 2 g dexAMETHasone (Decadron) injection Intravenous, PRN, Starting on Sat03/15/23 at 0857, Until Sat03/15/23 at 1025, Anesthesia Intra-op, Routine Given 03/15/2023 8:57 AM EDT 8 mg dexmedeTOMIDine (Precedex) (4 mcg/mL) bolus injection (Anesthsia) Intravenous, PRN, Starting on Sat03/15/23 at 0857, Until Sat03/15/23 at 1025, Anesthesia Intra-op, Routine Given 03/15/2023 9:01 AM EDT 4 mcg Given 03/15/2023 8:57 AM EDT 4 mcg dexmedeTOMIDine (Precedex) (4 mcg/mL) in sodium chloride 0.9% 50 mL infusion Intravenous, CONTINUOUS PRN, Starting on Sat03/15/23 at 0900, Until Sat03/15/23 at 1025, Anesthesia Intra-op New Bag 03/15/2023 9:00 AM EDT 0.3 mcg/kg/hr 4.763 mL/hr lactated ringers infusion 1,000 mL, at 100 mL/hr, Intravenous, CONTINUOUS, Starting on Sat03/15/23 at 0800, Until Sat03/15/23 at 1122, Day of Surgery (Day of Procedure) New Bag 03/15/2023 8:48 AM EDT lidocaine (pf) (Xylocaine) (20 mg/mL) 2% injection syringe Intravenous, PRN, Starting on Sat03/15/23 at 0852, Until Sat03/15/23 at 1025, Anesthesia Intra-op, Routine Given 03/15/2023 8:52 AM EDT 100 mg midazolam (pf) (Versed) (1 mg/mL) multi-dose injection Intravenous, PRN, Starting on Sat03/15/23 at 0848, Until Sat03/15/23 at 1025, Anesthesia Intra-op, Routine Given 03/15/2023 8:48 AM EDT 2 mg ondansetron (pf) (Zofran) (2 mg/mL) injection Intravenous, PRN, Starting on Sat03/15/23 at 0857, Until Sat03/15/23 at 1025, Anesthesia Intra-op, Routine Given 03/15/2023 10:03 AM EDT 4 mg Given 03/15/2023 8:57 AM EDT 4 mg propofoL (Diprivan) (10 mg/mL) infusion Intravenous, CONTINUOUS PRN, Starting on Sat03/15/23 at 0854, Until Sat03/15/23 at 1025, Anesthesia Intra-op, Routine Rate/Dose Change 03/15/2023 9:59 AM EDT 75 mcg/kg/min 28.575 mL/hr Rate/Dose Change 03/15/2023 9:18 AM EDT 175 mcg/kg/min 66. 675 mL/hr New Bag 03/15/2023 8:54 AM EDT 200 mcg/kg/min 76.2 mL/h r propofoL (Diprivan) 10 mg/mL bolus injection (Anesthesia) Intravenous, PRN, Starting on Sat03/15/23 at 0852, Until Sat03/15/23 at 1025, Anesthesia Intra-op Given 03/15/2023 9:00 AM EDT 50 mg Given 03/15/2023 8:52 AM EDT 200 mg rocuronium (Zemuron) (10 mg/mL) multi-dose injection Intravenous, PRN, Starting on Sat03/15/23 at 0852, Until Sat03/15/23 at 1025, Anesthesia Intra-op, Routine Given 03/15/2023 8:52 AM EDT 50 mg sugammadex (Bridion) 100 mg/mL injection Intravenous, PRN, Starting on Sat03/15/23 at 1002, Until Sat03/15/23 at 1025, Anesthesia Intra-op, Routine Given 03/15/2023 10:02 AM EDT 150 mg documented in this encounter Care Teams Chorus Dancer Relationship Specialty Start Date End Date Janet Davey, SACHA PCP - General Family Medicine 07/13/20 02/10/24 documented as of this encounter
--- OUTSIDE RECORDS SUMMARY | 2024-07-20 18:27 | XMS_ITS | Encounter Summary ---
Author Organization [facility] [place] [address] Care Team Providers Care Psychological Operations Name Role Phone Janet Davey APRN Primary Care Provider Encounter Details Date Type Department Care Team (Latest Contact Info) Description 11/27/2022 11:40 AM EDT TH Visit (TeleHealth) [place] [address] Tong Norman MD [facility] [place] [address] Post-COVID chronic dyspnea (Primary Dx); Asthma, unspecified asthma severity, unspecified whether complicated, unspecified whether persistent; Vasomotor rhinitis Social History Tobacco Use Types [...] as of this encounter Progress Notes * Tong Norman MD - 11/27/2022 11:40 AM EDT Images from the original note were not included. [facility] Section of Pulmonary and Critical Care Medicine Outpatient Follow-up Visit Date of Encounter: 11/27/2022 PCP: Janet Davey APRN Reason for Evaluation: Ms. Stacy [facility] visit for [id number] symptoms. She was last seen 07/25/2022. I independently interviewed and examined the patient in the office and have reviewed available records. At thetime of this encounter she was physically in [place]. She verbally consented to this telephone visit and understands that this visit may be billed, similar to a clinic office visit. History of Present Illness: I was able to connect with Lee on the telephone call today. She tells me that she is doing better than she had been previously. She has been in contact with our office noting some worsening respiratory symptoms that seem to have been provoked by increasing work outside of her home such as shoveling snow briefly again after her 's . Overall she feels that she has improved since this time. In the big picture she is feeling better overall at least inasmuch as she can walk faster than she had been previously. She is using Symbicort as prescribed and does feel has helped with her breathing. She also use the Atrovent nasal spray as prescribed which helped greatly with runny nose and associated coughing, butshe found medication probably drying and that it worsened her dry eyes. She has since cut back to use only once daily. At this dose her eye symptoms are minimal and she has improved but incomplete control of rhinitis. Nevertheless symptoms are improved. She has been accepted into pulmonary rehabilitation but has a long wait until she will have access. I reviewed medical, surgical family and social [...] History: Procedure Laterality Date ??? CREATED BY [employer] E[employer]WGuido(WAFUUROBoatbound) Procedure Date: 01/16/2008 ??? KNEE SURGERY 03/01/14 Right knee; patella surgery ??? LITHOTRIPSY ? ? PRO CYSTOURETHROSCOPY, FULGUR <.5CM SILASN N/A 04/18/2017 CYSTO, FULGURATION\BLADDER LESION\W\WO BX\LESS THAN 0.5CM (WRVU 4.05) performed by Luis Michael Jr., MD at [facility] MAIN OR ??? SHOULDER SURGERY [...] file Tobacco Use ??? Smoking status: Never ??? Smokeless tobacco: Never Vaping Use ??? Vaping Use: Never used Substance and Sexual Activity ??? Alcohol use: No ??? Drug use: No ??? Sexual activity: Yes Partners: Male control/protection: Surgical Comment: vasectomy/04/2016 Mirena Other Topics Concern ??? Not on file Social History Narrative with 3 children. Lives in [place], [place]. 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 Eats relatively healthy with fruits, vegetables, yogurt, and milk; minimal meat. Eats 3 meals per day, does not drink tea or coffee, and occasionally drinks soda.Her youngest is 19 yrs old,in college in [place]. The other two are out of the [...] azelastine (ASTELIN) 137 mcg (0.1 %) Aerosol, Evart instill 1 spray into each nostril twice [...] 0.2 % Cream Topical (Top), PRN ??? ipratropium (ATROVENT) 21 mcg (0.03 %) Evart, Non-Aerosol 2 sprays, Nasal, 2 TIMES DAILY [...] Comments) Sneezing and runny nose Physical Examination: There were no vitals taken for this visit. No exam for this telehealth encounter Labs: No new labs are available for my review. Imaging: There has been no new dedicated thoracic imaging. The last CT scan from 01/08/2022 showed normal lung parenchyma. No abnormal adenopathy. There was scarring in left lower lobe. Pulmonary Function Tests: No formal lung function test available. Impression and Plan of Care: This is a middle-aged woman with persistent respiratory symptoms and hypoxemia following COVID-19 infection in November 2021. 1. Post-COVID chronic dyspnea Altogether despite some setbacks symptoms are perhaps slightly improved and she can walk faster than previously. Would like to see her in the office for additional evaluation and set of lung functiontest at her next visit. I will email her some of our materials for coping with dyspnea after COVID-19. - Pulmonary Function Testing; Future 2. Asthma, unspecified asthma severity, unspecified whether complicated, unspecified whether persistent Symptoms attributable to asthma have improved with regular use of budesonide/formoterol I recommendshe continue. I am uncertain about exact severity of her asthma but given symptomatic improvements continue as appropriate. We will help her when we have lung function test obtained at her next visit. 3. Vasomotor rhinitis Recommend continue with reduced dose of intranasal ipratropium. Unfortunately there are not good options to further dose reduce as she is already on 0.03% solution. Long-term use of inhaled nasal steroid could be considered. Follow up office visit with PFTs same day in 4 months. Patient verbally consents to this telephone visit and understands that this visit may be billed, similar to a clinic office visit. I provided care to the patient today via telephone call. The total time associated with this visit was 32 minutes. Tong Norman MD, PhD N [facility] PULMONOLOGY AT [facility] [address] Dept: [phone] Loc: [phone] documented in this encounter Plan of Treatment Upcoming Encounters Date Type Department Care Team (Late st Contact Info) Description 08/07/2024 3:30 PM EST Office Visit Orthopaedics at [place] [phone] Tarik Henry MD [facility] [place] [address] 09/22/2024 7:00 AM EST Appointment Ultrasound at [place] [phone] Luis Michael Jr., MD [facility] UROLOGY [place] [phone] 09/22/2024 8:00 AM EST Office Visit Urology at [place] [phone] Luis Michael Jr., MD [facility] [place] [address] documented as of this encounter Visit Diagnoses Diagnosis Post-COVID chronic dyspnea- Primary Asthma, unspecified asthma severity, unspecified whether complicated, unspecified whether persistent Vasomotor rhinitis Allergic rhinitis, cause unspecified documented in this encounter Care Teams Psychological Operations Relationship Specialty Start Date End Date Janet Davey APRN PCP - General Family Medicine 07/13/20 02/10/24 documented as of this encounter
--- OUTSIDE RECORDS SUMMARY | 2024-07-20 18:27 | XMS_ITS | Encounter Summary ---
Author Organization [facility] [place] [address] Care Team Providers Care Gas Plant Worker Name Role Phone Janet Davey APRN Primary Care Provider [phone] Encounter Details Date Type Department Care Team (Latest Contact Info) Description 03/22/2023 Travel Social History Tobacco Use Types Packs/Day [...] 3:30 PM EST Office [place] [address] Tarik Henry MD [facility] [address] [place] [address] 09/22/2024 7:00 AM EST [place] [address] Luis Michael Jr., MD [facility] [place] [address] 09/22/2024 8:00 AM EST [place] [address] Luis Michael Jr., MD [facility] [place] [address] documented as of this encounter Visit Diagnoses Not on filedocumented in this encounter Care Teams Gas Plant Worker Relationship Specialty Start Date End Date Janet Davey APRN PCP - General Family Medicine 07/13/20 02/10/24 documented as of this encounter
--- OUTSIDE RECORDS SUMMARY | 2024-07-20 18:28 | XMS_ITS | Encounter Summary ---
Author Organization [facility] [place] [address] Care Team Providers Care Mushroom Farmer Name Role Phone Janet Davey APRN Primary Care Provider [phone] Reason for Referral * Diagnostic Test (Routine) - Closed Specialty Diagnoses / Procedures Referred By Contac t Referred To Contact Radiology Diagnoses Osteoporosis, unspecified osteoporosis type, unspecified pathological fracture presence Procedures DXA Central Spine, Hip, and/or Whole Body (Generic) Kady Hinojosa MD [facility] [place] [address] [facility] Rad Xray [address] [place] [address] [place] [address] Referral ID Status Reason Start Date Expiration Date V isits Requested Visits Authorized [id number] Closed Specialty Service Requested 06/09/2021 12/08/2022 1 1 Reason for Visit * Diagnostic Test (Routine) - Closed Specialty Diagnoses / Procedures Referred By Contac t Referred To Contact Radiology Diagnoses Osteoporosis, unspecified osteoporosis type, unspecified pathological fracture presence Procedures DXA Central Spine, Hip, and/or Whole Body (Generic) Kady Hinojosa MD [facility] [place] [address] [facility] Rad Xray [address] [place] [address] [place] [id number] Referral ID Status Reason Start Date Expiration Date V isits Requested Visits Authorized [id number] Closed Specialty Service Requested 06/09/2021 12/08/2022 1 1 Encounter Details Date Type Department Care Team (Latest Contact Info) Description 10/10/2022 12:42 PM EST - 10/10/2022 11:59 PM EST Hospital Encounter Mammography/DXA at [facility] [place] [address] Kady Hinojosa MD [facility] [place] [place] [address] Osteoporosis, unspecified osteoporosis type, unspecified pathological fracture [...] Refills Start Date End Date Symbicort 160-4.5 mcg/actuation HFA Aerosol InhalerIndications:Unc omplicated [...] azelastine (ASTELIN) 137 mcg (0.1 %) Aerosol, Marilla as needed. 0 06/17/2017 SUMAtriptan (IMITREX) 100 mg Tablet as needed for Migraine. 1 04/13/2016 hydrocortisone (WESTCORT) 0.2 % Cream Apply topically as needed. 07/25/2015 multivitamin (THERAGRAN) tablet Take 1 tablet by mouth daily. montelukast (SINGULAIR) 10 mg tablet Take 10 mg by mouth daily as needed. 12/07/2010 albuterol (ACCUNEB) 0.63 mg/3 mL nebulizer solution 08/24/2010 hydroCHLOROthiazide (MICROZIDE) 12.5 mg Capsule Take 1 capsule by mouth daily. 90 capsule 3 10/10/2022 07/04/2023 ipratropium (ATROVENT) 21 mcg (0.03 %) Marilla, Non-AerosolIndications :Vasomotor rhinitis 2 sprays by Nasal route 2 times daily. 30 mL 5 07/25/2022 09/16/2023 omeprazole (PriLOSEC) 20 mg Capsule, Delayed Release(E.C.) as needed. 01/18/2022 03/27/2023 estradioL (Lia) 0.1 mg/24 hr Patch Semiweekly Change 1 patch on the skin twice a week. 8 patch 12 01/04/2022 01/11/2023 cyclobenzaprine (Flexeril) 5 mg Tablet TK 1 T PO TID PRN 09/08/2019 03/27/2023 documented as of this encounter Plan of Treatment Upcoming Encounters Date Type Department Care Team (Late st Contact Info) Description 08/07/2024 3:30 PM EST Office [place] [address] Tarik Henry MD [facility] [address] [place] [address] 09/22/2024 7:00 AM EST Appointment [place] [address] Luis Michael Jr., MD [facility] [place] [address] 09/22/2024 8:00 AM EST Office [place] [address] Luis Michael Jr., MD [facility] [place] [place] [address] documented as of this encounter Procedures Procedure Name Priority Date/Time Associated Diagnosis Comments DXA CENTRAL SPINE, HIP, AND/OR WHOLE BODY (GENERIC) Routine 10/10/2022 1:10 PM EST Osteoporosis, unspecified osteoporosis type, unspecified pathological fracture presence documented in this encounter Results * DXA Central Spine, Hip, and/or Whole Body (Generic) (10/10/2022 1:10 PM EST) Anatomical Region Laterality Modality C-spine, Hip N/A Other Impressions 10/10/2022 1:43 PM EST Measurements meet WHO criteria for 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 Bone mineral density measurements are decreased at the hip by 5% over 2 years. Estimating Fracture Risk: The relationship between bone mineral density (BMD) and risk of fracture is well [...] based on femoral neck bone density measurements and nine clinical risk factors for individuals who have not been treated for 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 This is available through an interactive web-based interface (http://www.shef.ac.uk/FRAX/) and can be used to estimate a given patient's absolute risk of major osteoporotic fracture or hip fracture over the next 10 years. These estimates may prove useful when discussing risk with a patient. It is important, however, to understand the tool's limitations and how a given individual's risk might differ from the tool's estimate. The tool does not take into account the dose-response associated with most risk factors. For example, the significant increase in risk associated with multiple prior fractures compared to a single prior fracture is not taken into account. Similarly, the location of a previous fracture, the amount of glucocorticoids and number of cigarettes smoked are not considered. These limitations are discussed in a Frequently Asked Questions section of the FRAX website which you are encouraged to review. DEXA data sheets with BMD measurements and plots are available in [employer] under the imaging tab. Paper copies will be sent to providers without [employer] access. If you have received this report without the data sheet and do not have access to [employer], please contact Radiology Export Freight Clerk at [phone] Saturday thru Saturday 8am-4pm. ? Bone Density Report ? Name: ?Stacy Albright Age: ? 57 Sex: ? Female Ethnicity: ? White Date of : 1965 Referring Provider: KADY HINOJOSA Study: Bone densitometry was performed. Model: Youxigu (S/N [id number]) SW version 13.6.0.5 Exam Date: October 10, 2022 Accession number: [id number] Bone Density: Region ? BMD ?T-score ??Z-score ? AP Spine(L1-L4) ? 0.939 ?? -1.0 ?0.4 ? Femoral Neck (Left) ?0.532 ?? -2.9 ? -1.6 ? Total Hip (Left) ?0.673 ?? -2.2 ? -1.3 ? World Health Organization criteria for BMD impression classify patients as: Normal (T-score at or above -1.0), Osteopenia (T-score between -1.0 and -2.5), or Osteoporosis (T-score at or below -2.5). Previous Exams: Region ??Exam ? Age ??BMD ?? T-score ??BMD Change ? BMD Change ?Date ?g/cm2 ?vs Baseline ?vs Previous AP Spine (L1-L4) ? 10/10/2022 ??57 ??0.939 ?-1.0 ??-0.023 (-2.4%) -0.026 (-2.7%) ? 07/07/2020 ??54 ??0.965 ?-0.7 ?? 0.003 (0.3%) ??-0.029 (-2.9%) ? 06/27/2017 ??51 ??0.994 ?-0.5 ??0.032 (3.3%)* ??0.031 (3.2%)* ? 04/07/2015 ??49 ??0.963 ?-0.8 ?? 0.001 (0.1%) ??-0.012 (-1.3%) ? 02/16/2013 ??47 ??0.975 ?-0.7 ?? 0.013 (1.4%) ?? 0.013 (1.4%) ? 02/13/2011 ??45 ??0.962 ?-0.8 ? Total Hip(Left) ? 10/10/2022 ??57 ??0.673 ?-2.2 ??-0.048 (-6.7%) [...] who have questions please contact the health nanny caregiver that requested your imaging first. ? Electronically signed by: Swapna Cedeño MD, [facility] ([phone]), at 10/10/2022 1:43 PM Narrative 10/10/2022 1:43 PM EST EXAMINATION: DXA CENTRAL SPINE, HIP, AND/OR WHOLE BODY (GENERIC) CLINICAL HISTORY: ??57 years Female 2 year follow-up (as entered by ordering provider) TECHNIQUE: Scans were acquired at the lumbar spine and left hip using the ChiScan A system. FINDINGS: Femoral neck BMD: 0.532 g/cm2 Lowest T-score at the diagnostic region of interest: T-score: -2.9, TENZIN: Femoral neck, WHO diagnosis: 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 ......... Comparison......... Previous scan:July 07, 2020 Baseline scan:February 13, 2011 Total spine: Compared to the previous, -0.026 ??g/cm2 (3 %) decrease. Compared to the baseline, -0.023 g/cm2 (2 %) decrease. At [facility], least significant change for bone mineral density measurements at the spine region of interest: 0.031 g/cm2 Total hip: Compared to the previous, -0.032 ??g/cm2 (5 %) decrease. Compared to the baseline, -0.048 g/cm2 (7 %) decrease. At [facility], least significant change for bone mineral density measurements at the left total hip region of interest: 0.025 g/cm2 Procedure Note Swapna Cedeño MD - 10/10/2022 EXAMINATION: DXA CENTRAL SPINE, HIP, AND/OR WHOLE BODY (GENERIC) CLINICAL HISTORY: 57 years Female 2 year follow-up (as entered byordering provider) TECHNIQUE: Scans were acquired at the lumbar spine and left hip usingthe ChiScan A system. FINDINGS: Femoral neck BMD: 0.532 g/cm2 Lowest T-score at the diagnostic region of interest: T-score: -2.9, TENZIN: Femoral neck, WHO diagnosis: 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 ......... Comparison......... Previous scan:July 07, 2020 Baseline scan:February 13, 2011 Total spine: Compared to the previous, -0.026 g/cm2 (3 %) decrease. Compared to the baseline, -0.023 g/cm2 (2 %) decrease. At [facility], least significant change for bonemineral density measurements at the spine region of interest: 0.031 g/cm2 Total hip: Compared to the previous, -0.032 g/cm2 (5 %) decrease. Compared to the baseline, -0.048 g/cm2 (7 %) decrease. At [facility], least significant change for bonemineral density measurements at the left total hip region of interest: 0.025g/cm2 IMPRESSION Measurements meet WHO criteria for 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 Bone mineral density measurements are decreased at the hip by 5% over 2years. Estimating Fracture Risk: The relationship between bone mineral density (BMD) and risk of fractureis well established. As BMD decreases, risk increases. Quantifying risk isdifficult and is usually limited to estimation of the relative risk - a term which mayhave limited value when trying to discuss an individual's risk. Estimatingthe absolute risk for a patient requires an understanding of the incidencerate in a given population and consideration of multiple, partially independent,risk factors in addition to BMD. The World Health Organization (WHO) has developed a fracture riskprediction tool that calculates a ten-year risk of major osteoporotic fracture basedon femoral neck bone density measurements and nine clinical risk factorsfor individuals who have not been treated for 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 This isavailable through an interactive web-based interface (http://www.shef.ac.uk/FRAX/)and can be used to estimate a given patient's absolute risk of majorosteoporotic fracture or hip fracture over the next 10 years. These estimates mayprove useful when discussing risk with a patient. It is important, however, to understand the tool's limitations and how a given individual's risk mightdiffer from the tool's estimate. The tool does not take into account thedose-response associated with most risk factors. For example, the significant increasein risk associated with multiple prior fractures compared to a single priorfracture is not taken into account. Similarly, the location of a previous fracture,the amount of glucocorticoids and number of cigarettes smoked are notconsidered. These limitations are discussed in a Frequently Asked Questions sectionof the FRAX website which you are encouraged to review. DEXA data sheets with BMD measurements and plots are available in [employer]under the imaging tab. Paper copies will be sent to providers without [employer] access.If you have received this report without the data sheet and do not haveaccess to [employer], please contact Radiology Export Freight Clerk at [phone] Saturday 8am-4pm. Bone Density Report Name: Stacy Albright Age: 57 Sex: Female Ethnicity: White Date of : 1965 Referring Provider: KADY HINOJOSA Study: Bone densitometry was performed. Model: Youxigu (S/N 455312R) Gold Lasso version 13.6.0.5 Exam Date: October 10, 2022 Accession number: [id number] Bone Density: Region BMD T-score Z-score AP Spine(L1-L4) 0.939 -1.0 0.4 Femoral Neck (Left) 0.532 -2.9 -1.6 Total Hip (Left) 0.673 -2.2 -1.3 World Health Organization criteria for BMD impression classify patients as: Normal (T-score at or above -1.0), Osteopenia (T-score between -1.0 and -2.5), or Osteoporosis (T-score at or below -2.5). Previous Exams: Region Exam Age BMD T-score BMD Change BMD Change Date g/cm2 vs Baseline vs Previous AP Spine (L1-L4) 10/10/2022 57 0.939 -1.0 -0.023 (-2.4%) -0.026 (-2.7%) 07/07/2020 54 0.965 -0.7 0.003 (0.3%) -0.029 (-2.9%) 06/27/2017 51 0.994 -0.5 0.032 (3.3%)* 0.031 (3.2%)* 04/07/2015 49 0.963 -0.8 0.001 (0.1%) -0.012 (-1.3%) 02/16/2013 47 0.975 -0.7 0.013 (1.4%) 0.013 (1.4%) 02/13/2011 45 0.962 -0.8 Total Hip(Left) 10/10/2022 57 0.673 -2.2 -0.048 (-6.7%) -0.032 [...] patients who have questions please contactthe health nanny caregiver that requested your imaging first. Kady Hinojosa MD IMG DEXA ORDERABLES documented in this encounter Visit Diagnoses Diagnosis Osteoporosis, unspecified osteoporosis type, unspecified pathological fracture presence documented in this encounter Care Teams Mushroom Farmer Relationship Specialty Start Date End Date Janet Davey, SACHA PCP - General Family Medicine 07/13/20 02/10/24 documented as of this encounter
--- OUTSIDE RECORDS SUMMARY | 2024-07-20 18:28 | XMS_ITS | Encounter Summary ---
Author Organization [facility] [place] [address] Care Team Providers Care Flowers Salesperson Name Role Phone Janet Davey APRN Primary Care Provider Encounter Details Date Type Department Care Team (Latest Contact Info) Description 07/25/2022 Travel Social History Tobacco Use Types Packs/Day [...] 3:30 PM EST Office [place] [phone] Tarik Henry MD [facility] [place] [address] 09/22/2024 7:00 AM [place] [address] Luis Michael Jr., MD [facility] [place] [address] 09/22/2024 8:00 AM EST [place] [address] Luis Michael Jr., MD [facility] [place] [address] documented as of this encounter Visit Diagnoses Not on filedocumented in this encounter Care Teams Flowers Salesperson Relationship Specialty Start Date End Date Janet Davey APRN PCP - General Family Medicine 07/13/20 02/10/24 documented as of this encounter
--- OUTSIDE RECORDS SUMMARY | 2024-07-20 18:28 | XMS_ITS | Encounter Summary ---
Author Organization [facility] [place] [address] Care Team Providers Care String Studies Director Name Role Phone Janet Davey APRN Primary Care Provider [phone] Encounter Details Date Type Department Care Team (Late st Contact Info) Description 06/26/2022 Telephone [place] [phone] Aracelis Hough RMA Social History Tobacco Use Types Packs/Day Years [...] encounter Miscellaneous Notes * Telephone Encounter - Aracelis Hough RMA - 06/26/2022 11:47 AM EDT Spoke with pt... allergies, & tobacco reviewed meds NOT. Pt would like to update at visit. documented in this encounter Plan of Treatment Upcoming Encounters Date Type Department Care Team (Late st Contact Info) Description 08/07/2024 3:30 PM EST Office [place] [phone] Tarik Henry MD [facility] [place] [address] 09/22/2024 7:00 AM EST Appointment Ultrasound at [place] [phone] Luis Michael Jr., MD [facility] [place] [address] 09/22/2024 8:00 AM EST Office Visit Urology at [place] [phone] Luis Michael Jr., MD [facility] [place] [address] documented as of this encounter Visit Diagnoses Not on filedocumented in this encounter Care Teams String Studies Director Relationship Specialty Start Date End Date Janet Davey APRN PCP - General Family Medicine 07/13/20 02/10/24 documented as of this encounter
--- OUTSIDE RECORDS SUMMARY | 2024-07-20 18:28 | XMS_ITS | Encounter Summary ---
Author Organization [facility] [place] [address] Care Team Providers Care Ware Tester Name Role Phone Janet Davey APRN Primary Care Provider [phone] Encounter Details Date Type Department Care Team (Late st Contact Info) Description 01/08/2022 Ancillary Procedure Radiology Library at [facility] [place] [place] [phone] Tong Norman MD [facility] [place] [address] Social History Tobacco Use Types Packs/Day Years [...] PM EST Office Visit [place] [phone] Tarik Henry MD [facility] [place] [address] 09/22/2024 7:00 AM EST Appointment [place] [address] Luis Michael Jr., MD [facility] [place] [address] 09/22/2024 8:00 AM EST Office [place] [address] Luis Michael Jr., MD [facility] [place] [address] documented as of this encounter Procedures Procedure Name Priority Date/Time Associated Diagnosis Comments FILM LIBRARY STORAGE ONLY CT CHEST Routine 01/08/2022 12:00 AM EDT documented in this encounter Results * Film Library- Storage Only CT Chest (01/08/2022 12:00 AM EDT) Narrative [facility] - 05/03/2022 4:03 PM EDT This exam is auto-finalizing. It's purpose is for storage only. Tong Norman MD IMG FILM LIBRARY ORD ERABLES [place], [place] documented in this encounter Visit Diagnoses Not on filedocumented in this encounter Care Teams Ware Tester Relationship Specialty Start Date End Date Janet Davey APRN PCP - General Family Medicine 07/13/20 02/10/24 documented as of this encounter
--- OUTSIDE RECORDS SUMMARY | 2024-07-20 18:28 | XMS_ITS | Encounter Summary ---
Author Organization [facility] [place] [address] Care Team Providers Care Family Resource Specialist Name Role Phone Janet Davey APRN Primary Care Provider [phone] Reason for Visit * Reason Comments Follow-up Encounter Details Date Type Department Care Team (Late st Contact Info) Description 02/12/2022 9:20 AM EDT Office Visit Obstetrics [place] [address] Desiree Zabala MD [facility] DR OBSTETRICS [place] [address] Hot flashes; Hormone replacement therapy (postmenopausal) Social History Tobacco [...] 36.2 ??C (97.2 ??F) 02/12/2022 9:11 AM ED T Respiratory Rate - - Oxygen Saturation 100% 02/12/2022 9:11 AM EDT Inhaled Oxygen Concentration - - Weight 63.5 kg (140 lb) 02/12/2022 9:11 AM EDT p t reported Height 172.7 cm (5' 8) 02/12/2022 9:11 AM EDT Body Mass Index 21.29 02/12/2022 9:11 AM EDT documented in this encounter Progress Notes * Desiree Zabala MD - 02/12/2022 9:20 AM EDT FOOD MIXER Follow Up Visit Reason for Visit: Stacy [...] lasted for longer than a week at times and is darker blood. Bleeding started within last 2 months (12/31/2021). Hotflashes are well controlled back on her prior dose of estradiol HRT monitoring: HRT start: 2013 Methods tried: Estradiol patch, Mirena IUD (placed 04/2016) Last labs: Lipids 02/12/2022 The 10-year ASCVD risk score ([place] SUE Jr., et al., 2013) is: 1.3% [...] performed by Luis Michael Jr., MD at [facility] MAIN OR ??? SHOULDER SURGERY Right [...] twice a week. 8 patch 12 ??? chlorthalidone (Hygroten) 25 mg Tablet Take [...] azelastine (ASTELIN) 137 mcg (0.1 %) Aerosol, Hurley instill 1 spray into each nostril twice [...] 3:30 PM EST Office Visit Orthopaedics at [place] [phone] Tarik Henry MD [facility] [place] [address] 09/22/2024 7:00 AM EST Appointment Ultrasound at [place] [address] Luis Michael Jr., MD [facility] [place] [address] 09/22/2024 8:00 AM EST Office Visit Urology at [place] [address] Luis Michael Jr., MD [facility] [place] [address] documented as of this encounter Visit Diagnoses Diagnosis Hot flashes Symptomatic menopausal or female climacteric states Hormone replacement therapy (postmenopausal) Need for prophylactic hormone replacement therapy (postmenopausal) documented in this encounter Care Teams Family Resource Specialist Relationship Specialty Start Date End Date Janet Davey APRN PCP - General Family Medicine 07/13/20 02/10/24 documented as of this encounter
--- OUTSIDE RECORDS SUMMARY | 2024-07-20 18:28 | XMS_ITS | Encounter Summary ---
Author Organization [facility] [place] [address] Care Team Providers Care Medical Coding Auditor Name Role Phone Janet Davey APRN Primary Care Provider [phone] Encounter Details Date Type Department Care Team (Late st Contact Info) Description 11/12/2022 Telephone [place] [phone] Nicole Cheng RT Social History Tobacco Use [...] Telephone Encounter - Nicole Cheng RT - 11/12/2022 5:06 PM EDT Stacy called and LM that her recently and she is now responsible for clearing the snow, etc and this is making her breathing worse. she is asking for direction for respiratory management ( Post COVID and hx of asthma) documented in this encounter Plan of Treatment Upcoming Encounters Date Type Department Care Team (Late st Contact Info) Description 08/07/2024 3:30 PM EST Office [place] [address] Tarik Henry MD [facility] [place] [address] 09/22/2024 7:00 AM EST [place]ointment [place] [address] Luis Michael Jr., MD [facility] [place] [address] 09/22/2024 8:00 AM EST Office Visit Urology at [place] [phone] Luis Michael Jr., MD [facility] [address] documented as of this encounter Visit Diagnoses Not on filedocumented in this encounter Care Teams Medical Coding Auditor Relationship Specialty Start Date End Date Janet Davey APRN PCP - General Family Medicine 07/13/20 02/10/24 documented as of this encounter
--- OUTSIDE RECORDS SUMMARY | 2024-07-20 18:28 | XMS_ITS | Encounter Summary ---
Author Organization [facility] [place] [address] Care Team Providers Care Circuit Breaker Supervisor Name Role Phone Janet Davey APRN Primary Care Provider [phone] Encounter Details Date Type Department Care Team (Latest Contact Info) Description 10/07/2022 Travel Social History Tobacco Use Types Packs/Day [...] 3:30 PM EST Office [place] [phone] Tarik Henry MD [facility] [place] [address] 09/22/2024 7:00 AM EST Appointment [place] [phone] Luis Michael Jr., MD [facility] [place] [address] 09/22/2024 8:00 AM EST Office [place] [address] Luis Michael Jr., MD [facility] [place] [address] documented as of this encounter Visit Diagnoses Not on filedocumented in this encounter Care Teams Circuit Breaker Supervisor Relationship Specialty Start Date End Date Janet Davey APRN PCP - General Family Medicine 07/13/20 02/10/24 documented as of this encounter
--- OUTSIDE RECORDS SUMMARY | 2024-07-20 18:28 | XMS_ITS | Encounter Summary ---
Author Organization [facility] Address [facility] [place] [address] Care Team Providers Care Meeting Specialist Name Role Phone Janet Davey APRN Primary Care Provider [phone] Encounter Details Date Type Department Care Team (Latest Contact Info) Description 11/10/2021 1:11 PM EDT - 11/10/2021 11:59 PM EDT Hospital Encounter [place] [address] Genoveva Cordoba MD [facility] [place] [address] Abnormal finding on breast imaging Discharge Disposition: Home Social History Tobacco Use [...] Refills Start Date End Date calcium carbonate/vitamin D3 (VITAMIN D-3 ORAL) Take [...] azelastine (ASTELIN) 137 mcg (0.1 %) Aerosol, [place] as needed. 0 06/17/2017 SUMAtriptan (IMITREX) 100 mg Tablet as needed for Migraine. 1 04/13/2016 hydrocortisone (WESTCORT) 0.2 % Cream Apply topically as needed. 07/25/2015 multivitamin (THERAGRAN) tablet Take 1 tablet by mouth daily. montelukast (SINGULAIR) 10 mg tablet Take 10 mg by mouth daily as needed. 12/07/2010 albuterol (ACCUNEB) 0.63 mg/3 mL nebulizer solution 08/24/2010 chlorthalidone (Hygroten) 25 mg Tablet Take 1 tablet by mouth daily. 90 tablet 3 09/25/2021 05/29/2022 Estradiol (Lia) 0.025 mg/24 hr Patch Semiweekly Change 1 patch on the skin twice a week. 8 patch 12 08/07/2021 12/28/2021 ibuprofen (Advil;Motrin) 800 mg Tablet TK 1 T PO TID PRN 07/04/2020 02/12/2022 oxyCODONE (Roxicodone) 5 mg Tablet TK 1 T PO Q 6 H PRN 05/20/2020 02/13/20 22 promethazine (Phenergan) 25 mg Tablet as needed. 05/16/2020 02/12/2022 cyclobenzaprine (Flexeril) 5 mg Tablet TK 1 T PO TID PRN 09/08/2019 03/27/2023 lidocaine (LIDODERM) 5 % Adhesive Patch, Medicated APPLY 1 PATCH TO SHOULDER ONCE DAILY PRF PAIN 07/31/2019 02/12/2022 valACYclovir (Valtrex) 500 mg Tablet TAKE 2 TABLETS BY MOUTH THREE TIMES DAILY NEEDED 08/01/2019 02/12/2022 LINZESS 145 mcg Capsule 145 mg as needed. 0 06/21/2017 02/12/2022 linaCLOtide (Linzess) 72 mcg Capsule Take 72 mcg by mouth. One time per week 02/12/2022 cetirizine (ZYRTEC) 10 mg tablet Take 10 mg by mouth daily. 02/12/2022 tacrolimus (PROTOPIC) 0.1 % ointment 1 Appl(s) Top Twice daily 08/24/2010 02/12/2022 KETOCONAZOLE (NIZORAL TOP) Apply topically. 08/24/2010 02/12/2022 documented as of this encounter Plan of Treatment Upcoming Encounters Date Type Department Care Team (Late st Contact Info) Description 08/07/2024 3:30 PM EST Office Visit [place] [phone] Tarik Henry MD [facility] [place] [address] 09/22/2024 7:00 AM EST Appointment [place] [phone] Luis Michael Jr., MD [facility] [place] [address] 09/22/2024 8:00 AM EST Office Visit [place] [phone] Luis Michael Jr., MD [facility] [place] [address] documented as of this encounter Procedures Procedure Name Priority Date/Time Associated Diagnosis Comments MAMMO BREAST US LIMITED LEFT Routine 11/10/2021 1:28 PM EDT Abnormal finding on breast imaging documented in this encounter Results * US Breast Limited Left (11/10/2021 1:28 PM EDT) Anatomical Region Laterality Modality Breast Left Mammography Impressions 11/10/2021 1:35 PM EDT Simple cyst accounts for mammographic finding in the left upper inner quadrant. Resume annual screening. BI-RADS Category 2: Benign Findings * ??Regular screening mammograms starting between age 40 and 50 reduces the risk of from breast cancer. * ??All screening tests have both risks and benefits. These risks and benefits should be assessed for each individual patient through discussion with their provider to determine their preferred breast cancer screening schedule. * ??Women should report any breast changes to a health care provider right away. * ??Some women, because of their family history, a genetic tendency, or other factors, should be screened with annual breast MRI as well as with mammograms. (The number of women who fall into this category is very small). Patients and health care providers should discuss each patients history to decide if earlier screening and/or breast MRI are appropriate. * ??Screening should continue as long as [...] who have questions please contact the health group care worker that requested your imaging first. ? Narrative 11/10/2021 1:35 PM EDT EXAMINATION: US ??BREAST LIMITED LEFT CLINICAL HISTORY: abnormal u/s TECHNIQUE: High-resolution ultrasound was performed of the left breast 11:00 radian 7 cm from the nipple. COMPARISON: 11/02/2021 FINDINGS: There is a circumscribed anechoic avascular mass with posterior enhancement corresponding in size and location to the mammographic finding, measuring 0.6 cm in diameter. Genoveva Cordoba MD IMG MAMMO ORDERABL ES documented in this encounter Visit Diagnoses Diagnosis Abnormal finding on breast imaging Other (abnormal) findings on radiological examination of breast documented in this encounter Care Teams Meeting Specialist Relationship Specialty Start Date End Date Janet Davey SACHA PCP - General Family Medicine 07/13/20 02/10/24 documented as of this encounter
--- OUTSIDE RECORDS SUMMARY | 2024-07-20 18:28 | XMS_ITS | Encounter Summary ---
Author Organization [facility] [place] [address] Care Team Providers Care Uniformer Name Role Phone Janet Davey SACHA Primary Care Provider Encounter Details Date Type Department Care Team (Late st Contact Info) Description 05/17/2022 Telephone [place] [phone] Tehrese Aponte Social History Tobacco Use Types Packs/Day Years [...] encounter Miscellaneous Notes * Telephone Encounter - Therese Aponte, [facility] - 05/21/2022 10:44 AM EDT I [...] should come to ED She is in agr eement with this and would like to do a telehealth with Dr Michael. I have sent a message to the secretaries a message requesting this * Telephone Encounter - Therese Aponte CMA - 05/17/2022 9:55 AM EDT Stacy called the nursing line stating that she had gone to the ED in [facility] for Kidney stone pain. They stated she had a 1 mm [...] 3:30 PM EST Office [place] [address] Tarik Henry MD [facility] [place] [address] 09/22/2024 7:00 AM EST Appointment [place] [phone] Luis Michael Jr., MD [facility] [place] [address] 09/22/2024 8:00 AM EST Office [place] [address] Luis Michael Jr., MD [facility] [place] [address] documented as of this encounter Visit Diagnoses Not on filedocumented in this encounter Care Teams Uniformer Relationship Specialty Start Date End Date Janet Davey APRN PCP - General Family Medicine 07/13/20 02/10/24 documented as of this encounter
--- OUTSIDE RECORDS SUMMARY | 2024-07-20 18:28 | XMS_ITS | Encounter Summary ---
Author Organization [facility] Victor Manuel [facility] [place] [address] Care Team Providers Care Class C Driver Name Role Phone Janet Davey APRN Primary Care Provider [phone] Reason for Visit * Rehabilitation (Routine) - Closed Specialty Diagnoses / Procedures Referred By Alberta mendosa Referred To Contact Pulmonology Diagnoses Post-COVID chronic cough Post-COVID chronic dyspnea Post-COVID syndrome Juan Dotson MD [facility] [place] [address] [facility] [place] [address] Referral ID Status Reason Start Date Expiration Date V isits Requested Visits Authorized [id number] Closed Evaluate and Treat 05/29/2022 05/29/2023 36 36 Encounter Details Date Type Department Care Team (Late st Contact Info) Description 06/27/2022 8:00 AM EDT Office [place] [address] Nicole Cheng RT Post-COVID syndrome; Asthma, unspecified asthma severity, unspecified whether complicated, [...] AM EDT documented as of this encounter Patient Instructions * Patient Instructions* Nicole Cheng RT - 06/27/2022 8:00 AM EDT Inhalers: Symbicort 2 puffs every 12 hours with valved holding chamber. Slow deep breath with 8-10 second breath hold. Albuterol inhaler 2 puffs every 4 hours as needed and 10-15 minutes prior to your exercise. Cleaning instructions for (Spacer) Valved holding chamber to be done a minimum of weekly: - remove inhaler holding end and mouth piece - soak in hot soapy ( dish detergent) water for 10 minutes - Rinse all parts well with hot water -Air dry overnight BREATHING EXERCISES: Pursed lip breathing to Stacy Albright Inhale through nose if possible-ok to breathe in via your mouth Exhale through pursed lips, comfortably Plan to practice this at rest and then with walking upstairs, walking on the level, etc Diaphragmatic (Belly ) Breathing to Stacy Albright Relax your shoulders. Place one hand on your chest and the other on your belly. Inhale through your nose for about two seconds. As you breathe in, your belly should move outward. Your chest should minimally move. Breathe out comfortably through your nose or mouth, your belly should move inward. Plan to practice this at rest or lying down in bed with a book on your abdomen with goal of 10-15 repetitions. documented in this encounter Progress Notes * Nicole Cheng RT - 06/27/2022 8:00 AM EDT Pulmonary Rehabilitation/Respiratory Therapy Services Intake Note for Stacymeghan Albright Referred by Juan Dotson MD 6 Minute Walk: Pre-Walk Vitals: BP: 116/78 HR:86 SpO2: 98% Supplemental Oxygen:room air LEXII( dyspnea): 0 Rate of Perceived Exertion: 0 Lowest SpO2 during walk: HR:111 SpO2 :97% Supplemental Oxygen:room air LEXII( dyspnea): 0 Rate of Perceived Exertion: 1 Post-Walk Vitals: BP:134/80 HR: 114 SpO2: 98% Supplemental Oxygen:room air LEXII( dyspnea):2 Rate of Perceived Exertion: 0 Recovery: 3 minutes BP: 118/76 HR: 77 SpO2: 98% Supplemental Oxygen: room air LEXII( dyspnea): 0 Rate of Perceived Exertion: 0 Comments: Stacy Albright walked a distance of 497 meters ( 1630 feet) in 6 minutes with no rests. Pulse oximetry done with forehead sensor. Respiratory History: -COVID November 2021 with post COVID syndrome Asthma: since childhood with fluctuating symptoms over the years. In the past her asthma triggers included exercise, respiratory infections. Allergies: grass,trees and mold- immunotherapy in the past, allergy retesting performed this past summer and she has been started on a new series of immunotherapy for grasses, trees and molds- now receiving weekly injections. - fexofenadine 180 mg per day Smoking History:nonsmoker Cough: prn Sputum: none Wheezing: none She noted a few days ago cold symptoms, tested negative for COVID. She has yellow rhinitis, sinuspressure and nasal congestion. She had increased her Astelin nasal spray to 2 puffs 2 times per dayand has noted prn bloody nose. Orthopnea:1 pillow, waking up at night secondary to sneezing, nasal congestion Dyspnea: walking on the level, walking up inclines, walking up 2 flights of stairs- stops at the top secondary to dyspnea Pedal edema: none Lung sounds: coarse- clear Pulse oximetry at home: she noted at the start of the week her SpO2 on room wto=640%, by the end ofthe week her SpO2=70-80's with activity and talking. She will utilize her supplemental O2 at these times. -Fatigue: she notes significant fatigue/exhaustion at the end of the day. MDI/DPI instruction for Stacy Albright: Inspiratory Flows Resistance via Incheck dial Peak Inspiratory Flow Rate in LPM Low resistance ( MDI/Respimat): 1) 55 2) 45 -Instructed in MDI with valved holding chamber technique: Initial inspiratory flow= 55 lpm with 4 second breath hold. After instruction Stacy Albright Able to demonstrate technique correctly, Inspiratory flow after instruction: 45 lpm, slow deep breath in with 10 second breath hold. -Valved holding chamber provided to Stacy Albright to utilize with Symbicort and albuterol HFA Reviewed importance of priming initially and re-priming MDI HFA if not used within 2 weeks. Reviewed importance of rinsing the mouth after the Symbicort. Reviewed order of inhalers/nebulizer: Albuterol 0.63mg Nebulizer -currently not utilizing, she noted that she utilizes this primarily when she has a respiratory infection. -albuterol HFA 90 mcg 2 puffs every 4 hours as needed- currently not utilizing -Symbicort 160/4.5 mcg 2 puffs every 12 hours : currently utilizing at 6:30 am and 9-9:30 pm, reviewed every 12 hours-she verbalized understanding. -Singulair 10 mg per day Cleaning instructions for Valved holding chamber to be done a minimum of weekly: - remove inhaler holding end and mouth piece - soak in hot soapy ( dish detergent) water for 10 minutes - Rinse all parts well with hot water -Air dry overnight Cleaning instructions for nebulizer kit to be done a minimum of daily: - soak nebulizer parts in hot soapy ( dish detergent) water for 10 minutes - Rinse all parts well with hot water -Air dry overnight ??? Disposable nebulizer replace weekly BREATHING EXERCISES: (15 minutes) Introduced concept of Pursed lip breathing to Stacy Albright ??? Inhale through nose if possible- ok to breathe in via your mouth ??? Exhale through pursed lips, comfortably She was able to demonstrate pursed lip breathing at rest. She noted decreased dyspnea utilizing pursed lip breathing at rest. Walked down and then back up 2 flights of stairs utilizing pursed lip breathing and SpO2 on RA after walking up the stairs was 98% HR: 102 bpm. Stacy noted minimal dyspnea utilizing pursed lip breathing walking upstairs. Plan to practice this at rest, with ambulation and walking upstairs. Reviewed concept of Diaphragmatic Breathing to Stacy Albright ??? Relax your shoulders. ??? Place one hand on your chest and the other on your belly. ??? Inhale through your nose for about two seconds. As you breathe in, your belly should move outward. Your chest should minimally move. ??? Breathe out comfortably through your nose or mouth, your belly should move inward. She was able to demonstrate diaphragmatic breathing at rest. She has been practicing this at rest. Plan to practice this lying down in bed with 1 lb weight, or a book on your abdomen. Goal is 10-15 repetitions. Current Oxygen Therapy: Home system: low flow concentrator Portable system: portable oxygen concentrator DME provider: Tat[facility] O2 at 0 At rest, 1-2 pulse dose with activity 0 with sleep Other Medical History: -Raynaud's Migraines Muscular skeletal: - anterior chest wall tightness: she receives treatment from a chiropractor monthly for this. Home exercise: - currently working with OP PT and has a 5 day training schedule from them that includes walking ( approximately 3/4 mile in 20 minutes with 1-2 stops) 3 days per week ( slow to moderate+ pace intervals of 2-3 minutes) with warm up and cool down exercises. The other days she does strength training exercises ( 2 days per week). - Stacy noted that sometimes when she arrives home in the evening, she is too exhausted to do her exercises and will go to bed to rest. - reviewed when walking- to start with slow/easy walk for the first few minutes and then increase her pace to moderate. She verbalized understanding. -discussed premedicating with albuterol HFA 10-15 minutes prior to her walk. 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 Currently she Lives with and 13 y/o grand daughter in 100 y/o home with forced hot air.( her cleans the air ducts) They have lived there for 8 years. . Prior to that they lives in camp her built with a dirt cellar and forced hot air. Stacy's also has medical concerns. Stacy is also taking care of her mother and her father who live in the next town. They both have medical concerns. Hobbies:reading Nutrition: Weight loss/gain:from 11/02/21-02/12/22 she lost 14 lbs, since then she has gained overall5 lbs. Vision: glasses Hearing: no issues noted Cognition: no issues noted Immunization History: Immunization History Administered Date(s) Administered ??? Influenza PF, Split 06/01/2016 ??? Influenza Vaccine PF, Quadrivalent 06/03/2019 ??? Influenza Vaccine w/Preservative, Split 06/10/2014 Influenza : Received in 2021 Pneumococcal 23: Stacy understood that she has received (1) pneumonia vaccine, she is unsure whichone and will follow up with her PCP regarding this. Zoster: yes Tdap: yes- she understood that this is up to date COVID: received the initial series and 2 boosters. She noted that she is planning to schedule the bivalent COVID vaccine. Allergies Allergen Reactions ??? Grass Pollen-[place], Standard Other (See Comments) Runny nose, itching, sneezing ??? Mold Extracts Other (See Comments) Sneezing and runny nose Pre-screening tools: MRC: 1 Changes in Pulmonary Rehabilitation secondary to Covid-19 precautions Virtual Pulmonary Rehabilitation: The Virtual pulmonary rehabilitation program currently meets via [employer] 2 days per week for exercise and weekly for education. Participants continue with their home exercise program with weekly review with the pulmonary rehab staff. The program meets two times a week, typically for ten weeks and is under the direction of the bilingual medical receptionist, Dr. Sumanth Hicks. Educational classes provided regarding anatomy/physiology of lung disease, breathing retraining, medications, warning signs of infection, environmental risk factors, exercise, energy conservation, stress management and relaxation techniques, coping with a chronic lung disease, nutritional and lung disease. The patient???s progress will be reviewed with the bilingual medical receptionist every 2-4 weeks during the program. OP Pulmonary Rehabilitation: The program meets two times a week, typically for eight weeks and is under the direction of the bilingual medical receptionist, Dr. Sumanth Hicks. The program includes monitored exercise sessions with progressive increases in exercise level as appropriate. Educational classes are also provided regarding anatomy/physiology of lung disease, breathing retraining, medications, warning signs of infection, environmental risk factors, exercise, energy conservation, stress management and relaxation techniques, coping with a chronic lung disease, nutritional and lung disease. The patient???s progress will be reviewed with the bilingual medical receptionist every 2-4 weeks during the program. Reviewed evaluation for Pulmonary rehabilitation with Dr. Sumanth Hicks on 06/27/2022 Plan: - She will Continue with her home exercise program from physical therapy with modification to her warm up walk and potentially trial 2 puffs of albuterol 10- 15 minutes prior to her walk. - Utilize pursed lip breathing during exercise, when walking upstairs, etc. - Diaphragmatic breathing: practice this lying down in bed with 1 lb weight, or a book on your abdomen. Goal is 10-15 repetitions. - Add longer breath hold to inhaler medications ( 10 second breath hold). - Trial scheduling time for yourself in your day to allow yourself to rest/relax or enjoy a hobby/activity. -Hold pulmonary rehabilitation/respiratory therapy services at this time secondary to Stacy's verybusy schedule/commitments with her work, immediate family and parents. - Add Stacy to the pulmonary support group mailing list. LEXII Scale: 0 Nothing at all 0.5 Very, very slight (just noticeable 1 Very slight 2 Slight 3 Moderate 4 Somewhat severe 5 Severe 6 7 Very severe 8 9 Very, very severe (almost maximal) 10 Maximal [employer] [place] (MRC) Dyspnea Scale: 0: Breathless with strenuous exercise 1: Shortness of Breath when hurrying on the level or walking up a slight hill 2: Walks slower than people of the same age on the level because of breathlessness, or has to stop for breath when walking at own pace 3: Stops for breath after walking about 100 meters or after a few minutes on the level 4: Too breathless to leave the house or breathless when dressing or undressing Patient Health Questionnaire PHQ-9 For Depression- reference scores: 5-9: Minimal Symptoms 10-14: Minor Depression Dysthymia Major depression, mild 15-19: Major depression, moderately severe > = 20: Major depression, severe GABRIELE-7 Anxiety Severity- reference scores: 0-4: Normal 5-9: Mild Anxiety 10-14: Moderate Anxiety 15-21: Severe Anxiety [facility] Shortness of Breath Questionnaire- reference scores: Minimal score: 0- no dyspnea with activity Maximal score: 120- severe dyspnea with any [facility] Respiratory Questionnaire-reference scores: Scores range from 0 to 100, with higher scores indicating more limitations. documented in this encounter Plan of Treatment Upcoming Encounters Date Type Department Care Team (Late st Contact Info) Description 08/07/2024 3:30 PM EST Office Visit [place] [address] Tarik Henry MD [facility] [place] [address] 09/22/2024 7:00 AM EST [place] [address] Luis Michael Jr., MD [facility] [place] [address] 09/22/2024 8:00 AM EST Office Visit Urology at [place] [phone] Luis Michael Jr., MD [facility] [place] [address] documented as of this encounter Visit Diagnoses Diagnosis Post-COVID syndrome Asthma, unspecified asthma severity, unspecified whether complicated, unspecified whether persistent documented in this encounter Care Teams Class C Driver Relationship Specialty Start Date End Date Janet Davey APRN PCP - General Family Medicine 07/13/20 02/10/24 documented as of this encounter
--- OUTSIDE RECORDS SUMMARY | 2024-07-20 18:28 | XMS_ITS | Encounter Summary ---
Author Organization [facility] [place] [address] Care Team Providers Care Membership Correspondent Name Role Phone Janet Davey APRN Primary Care Provider [phone] Encounter Details Date Type Department Care Team (Late st Contact Info) Description 06/21/2022 [place] [phone] Nicole Cheng RT Social History Tobacco Use [...] Telephone Encounter - Nicole Cheng RT - 06/21/2022 2:45 PM EDT Stacy called back, she noted that she checked at [facility] pul rehab and they weren't able to offer her a potential date ( some time after September 17). reviewed potential other pulmonary rehab options including virtual pulmonary rehab at [facility] on Tuesdays 1-3 pm and Fridays 2-3 pm. ( this wouldconflict with her work schedule. Discussed potentially an initial pulmonary rehab consult with plan for home exercise program and routine updates from Stacy. She noted that she would be able to do this. Plan: Pulmonary rehab evaluation on 06/27 at 8 am with Nicole for 6 minute walk and [address] Hicks. documented in this encounter Plan of Treatment Upcoming Encounters Date Type Department Care Team (Late st Contact Info) Description 08/07/2024 3:30 PM EST Office Visit Orthopaedics at [place] [phone] Tarik Henry MD [facility] [place] [address] 09/22/2024 7:00 AM EST [place] [address] Luis Michael Jr., MD [facility] [place] [address] 09/22/2024 8:00 AM EST [place] [address] Luis Michael Jr., MD [facility] [place] [address] documented as of this encounter Visit Diagnoses Not on filedocumented in this encounter Care Teams Membership Correspondent Relationship Specialty Start Date End Date Janet Davey APRN PCP - General Family Medicine 07/13/20 02/10/24 documented as of this encounter
--- OUTSIDE RECORDS SUMMARY | 2024-07-20 18:28 | XMS_ITS | Encounter Summary ---
Author Organization [facility] [place] [address] Care Team Providers Care Flexible Machining System Machinist Name Role Phone Janet Davey APRN Primary Care Provider [phone] Encounter Details Date Type Department Care Team (Late st Contact Info) Description 05/17/2022 [place] [phone] Luis Michael Jr., MD [facility] [place] [address] Social History Tobacco Use Types Packs/Day Years [...] 3:30 PM EST [place] [phone] [facility] ORTHOPAEDIC [place] [address] 09/22/2024 7:00 AM [place] [address] Luis Michael Jr., MD [facility] [place] [address] 09/22/2024 8:00 AM [place] [address] Luis Michael Jr., MD [facility] [place] [address] documented as of this encounter Visit Diagnoses Not on filedocumented in this encounter Care Teams Flexible Machining System Machinist Relationship Specialty Start Date End Date Janet Davey APRN PCP - General Family Medicine 07/13/20 02/10/24 documented as of this encounter
--- OUTSIDE RECORDS SUMMARY | 2024-07-20 18:28 | XMS_ITS | Encounter Summary ---
Author Organization [facility] [place] [address] Care Team Providers Care Refractory Furnace Designer Name Role Phone Janet Davey APRN Primary Care Provider [phone] Encounter Details Date Type Department Care Team (Latest Contact Info) Description 06/27/2022 Travel Social History Tobacco Use Types Packs/Day [...] 3:30 PM EST Office [place] [phone] Tarik Henry MD [facility] [place] [address] 09/22/2024 7:00 AM EST [place] [phone] Luis Michael Jr., MD [facility] [place] [address] 09/22/2024 8:00 AM EST [place] [address] Luis Michael Jr., MD [facility] [place] [address] documented as of this encounter Visit Diagnoses Not on filedocumented in this encounter Care Teams Refractory Furnace Designer Relationship Specialty Start Date End Date Janet Davey APRN PCP - General Family Medicine 07/13/20 02/10/24 documented as of this encounter
--- OUTSIDE RECORDS SUMMARY | 2024-07-20 18:28 | XMS_ITS | Encounter Summary ---
Author Organization [facility] [place] [address] Care Team Providers Care Staff Genetic Counselor Name Role Phone Janet Davey APRN Primary Care Provider [phone] Encounter Details Date Type Department Care Team (Late st Contact Info) Description 06/18/2022 Telephone [place] [phone] Romy Hayes Social History Tobacco Use Types Packs/Day Years [...] Miscellaneous Notes * Telephone Encounter - Romy Hayes - 06/18/2022 2:44 PM EDT LM for pt to reschedule 07/[address] Hinojosa from 3:30pm to anytime available between 8am-11am. If pt is unavailable that time she can also be moved to 07/10 between 8am-11am documented in this encounter Plan of Treatment Upcoming Encounters Date Type Department Care Team (Late st Contact Info) Description 08/07/2024 3:30 PM EST Office Visit [place] [address] Tarik Henry MD [facility] DR ORTHOPAEDIC [place] [address] 09/22/2024 7:00 AM EST Appointment [place] [address] Luis Michael Jr., MD [facility] [place] [address] 09/22/2024 8:00 AM EST Office Visit Urology at [place] [phone] Luis Michael Jr., MD [facility] [place] [address] documented as of this encounter Visit Diagnoses Not on filedocumented in this encounter Care Teams Staff Genetic Counselor Relationship Specialty Start Date End Date Janet Davey APRN PCP - General Family Medicine 07/13/20 02/10/24 documented as of this encounter
--- OUTSIDE RECORDS SUMMARY | 2024-07-20 18:28 | XMS_ITS | Encounter Summary ---
Author Organization [facility] [place] [address] Care Team Providers Care Bilingual Sales Representative Name Role Phone Janet Davey APRN Primary Care Provider [phone] Encounter Details Date Type Department Care Team (Latest Contact Info) Description 06/24/2022 Travel Social History Tobacco Use Types Packs/Day [...] 3:30 PM EST Office [place] [phone] Tarik Henry MD [facility] ORTHOPAEDIC [place] [address] 09/22/2024 7:00 AM EST [place] [phone] Luis Michael Jr., MD [facility] [place] [address] 09/22/2024 8:00 AM EST [place] [address] Luis Michael Jr., MD [facility] [place] [address] documented as of this encounter Visit Diagnoses Not on filedocumented in this encounter Care Teams Bilingual Sales Representative Relationship Specialty Start Date End Date Janet Davey APRN PCP - General Family Medicine 07/13/20 02/10/24 documented as of this encounter
--- OUTSIDE RECORDS SUMMARY | 2024-07-20 18:28 | XMS_ITS | Encounter Summary ---
Author Organization [facility] Address [facility] [place] [address] Care Team Providers Care Front Desk Monitor Name Role Phone Janet Davey APRN Primary Care Provider [phone] Reason for Visit * Reason Comments Nephrolithiasis Encounter Details Date Type Department Care Team (Late st Contact Info) Description 10/02/2022 11:00 AM EST TH Visit (TeleHealth) [place] [address] Ferdinand Michael Jr., MD [facility] [address] Nephrolithiasis Social History Tobacco Use Types Packs/Day [...] as of this encounter Progress Notes * Ferdinand Michael Jr., MD - 10/02/2022 11:00 AM EST Images from the original note were not included. HPI Ms. Jessica Gtz is a pleasant 57 y.o. female who presents for to telehealth follow-up visit regarding mixed CaOx nephrolithiasis. Both in-person and video visit were offered but she requested specifically to proceed with a telephone office visit. She provided consent for telephone audio- only telehealth visit. She is s/p SWL in 2007 and [...] lower pole stone. She opted to monitor. In May 2022, she presented to [facility] for left-sided flank pain. By report CT revealed a 1 left ureteral mm stone which she subsequently passed. Since then she denies interval witnessed stone passage or suspected renal colic. She requested to update metabolic evaluation with repeat 24-hour urine. Developed long COVID syndrome in interim with [...] 10% calcium phosphate. Imaging studies: I independently re-reviewed the renal ultrasound from 03/2022. This suggests left-sided 6 mm inferior nonobstructing renal stone. No evidence of hydronephrosis, hydroureter, or right sided stone. Transition Teacher image noted below. Impression/Plan: Mixed calcium oxalate nephrolithiasis 1) left nonobstructing renal stone. Discussed management options including surveillance, ureteroscopy, or SWL. She wishes to continue with surveillance. We will plan repeat renal ultrasound in approximately 4 months at her reques, so that if interventions are desired she will be able to have it performed over the summer. She has been instructed to call or return in the interval if new signs or symptoms of stone passage/renal colic should develop. 2) mild hypercalciuria. We discussed the role of thiazide to address hypercalciuria. We discussed potential side effects. At this point she declines given the borderline hypercalciuria. We will revisit if there is evidence of increasing stone activity. 3) urine volume. We discussed urine volume remains well within the appropriate range. However the higher volume than the prior 24-hour urine rendered lower crystal supersaturation. I encouraged her to continue to increase her fluid intake. This patient was seen in conjunction with Dr. Michael, Urology Attending. Total visit time 22 minutes, with 15-minute phone discussion and 7 minutes spent in review of records and documentation and coordination of care. documented in this encounter Plan of Treatment Upcoming Encounters Date Type Department Care Team (Late st Contact Info) Description 08/07/2024 3:30 PM EST Office Visit [place] [phone] Tarik Henry MD [facility] [place] [address] 09/22/2024 7:00 AM EST Appointment [place] [phone] Ferdinand Michael Jr., MD [facility] [address] 09/22/2024 8:00 AM EST Office [place] [address] Ferdinand Michael Jr., MD [facility] [place] [address] documented as of this encounter Results * [...] calculi. Electronically signed by: Genie Carrasco MD, [facility] ([phone]), at 02/19/2023 10:07 AM Thank you for letting us participate in the care of this patient. If you are a health care provider and have any questions regarding this report, please contact the number above. For patients who have questions, please contact the health health care coach that requested your imaging first. ?Genie Carrasco, [facility] Paraprofessional Interpreter Electronically Signed Final Report ?? 02/19/2023 10:15 am Narrative 02/19/2023 10:15 AM EDT Renal ? (Signed Final 02/19/2023 10:15 am) PATIENT INFO: ID #: ? [id number] ?: ??[birth year] (57 yrs)(F) Name: ? JESSICA GTZ ?Visit Date: 02/19/2023 09:56 am PERFORMED BY: Attending: ?Luna GILL, Genie Dumont Resident: ? Mic Rizo MD Performed By: ? Humberto Donnelly RDMS Referred By: ?FERDINAND MICHAEL Location: ? [place] SERVICE(S) PROVIDED: URETRO - Retroperitoneal Complete - [id number] ? [id number] INDICATIONS: Assess for stones COMPARISON: Ultrasound: Renal [...] 02/19/2023 10:15 am) PATIENT INFO: ID #: [id number] : [birth year] (57 yrs)(F) Name: JESSICA GTZ Visit Date: 02/19/2023 09:56 am PERFORMED BY: Attending: Genie Carrasco MD Resident: Mic Rizo MD Performed By: Humberto Donnelly RDMS Referred By: FERDINAND MICHAEL JR Location: [place] SERVICE(S) PROVIDED: URETRO - Retroperitoneal Complete - [id number] INDICATIONS: Assess for stones COMPARISON: Ultrasound: Renal [...] calculi. Electronically signed by: Genie Carrasco MD, [facility] ([phone]), at 02/19/2023 10:07 AM Thank you for letting us participate in the care of this patient. If you are a health care provider and have any questions regarding this report, please contact the number above. For patients who have questions, please contact the health health care coach that requested your imaging first. Genie Carrasco, [facility] Paraprofessional Interpreter Electronically Signed Final Report 02/19/2023 10:15 am Ferdinand Michael Jr., MD [facility] GEN ORDERAB LES documented in this encounter Visit Diagnoses Diagnosis Nephrolithiasis Calculus of kidney Nephrolithiasis Calculus of kidney documented in this encounter Care Teams Front Desk Monitor Relationship Specialty Start Date End Date Janet Davey APRN PCP - General Family Medicine 07/13/20 02/10/24 documented as of this encounter
--- OUTSIDE RECORDS SUMMARY | 2024-07-20 18:28 | XMS_ITS | Encounter Summary ---
Author Organization [facility] [place] [address] Care Team Providers Care Manager Of Human Resources Name Role Phone Janet Davey APRN Primary Care Provider [phone] Encounter Details Date Type Department Care Team (Late st Contact Info) Description 12/07/2021 Orders Only Obstetrics [place] [address] Lucy Shepard MD [address] [place] [address] Hot flashes, menopausal Social History Tobacco Use Types Packs/Day Years [...] PM EST Office [place] [phone] Tarik Henry MD [facility] DR [place] [address] 09/22/2024 7:00 AM EST Appoint[place] [address] Luis Michael Jr., MD [facility] [place] [address] 09/22/2024 8:00 AM EST Office [place] [address]-1000 Luis Michael Jr., MD [facility] [place] [address] documented as of this encounter Visit Diagnoses Diagnosis Hot flashes, menopausal Symptomatic menopausal or female climacteric states documented in this encounter Care Teams Manager Of Human Resources Relationship Specialty Start Date End Date Janet Davey APRN PCP - General Family Medicine 07/13/20 02/10/24 documented as of this encounter
--- OUTSIDE RECORDS SUMMARY | 2024-07-20 18:28 | XMS_ITS | Encounter Summary ---
Author Organization [facility] [place] [address] Care Team Providers Care V Belt Curer Name Role Phone Janet Davey APRN Primary Care Provider [phone] Encounter Details Date Type Department Care Team (Latest Contact Info) Description 11/12/2022 2:57 PM EDT - 11/12/2022 11:59 PM EDT [place] [address] Discharge Disposition: Home Social History Tobacco Use [...] azelastine (ASTELIN) 137 mcg (0.1 %) Aerosol, [place] as needed. 0 06/17/2017 SUMAtriptan (IMITREX) 100 [...] 07/04/2023 ipratropium (ATROVENT) 21 mcg (0.03 %) [place], Non-AerosolIndications :Vasomotor rhinitis 2 sprays by Nasal [...] EST Office Visit Orthopaedics at [place] [phone] Tarik Henry MD [facility] [place] [address] 09/22/2024 7:00 AM EST Appointment Ultrasound at [place] [phone] Luis Michael Jr., MD [facility] [place] [address] 09/22/2024 8:00 AM EST Office Visit Urology at [place] [phone] Luis Michael Jr., MD [facility] [place] [address] documented as of this encounter Visit Diagnoses Not on filedocumented in this encounter Care Teams V Belt Curer Relationship Specialty Start Date End Date Janet Davey APRN PCP - General Family Medicine 07/13/20 02/10/24 documented as of this encounter
--- OUTSIDE RECORDS SUMMARY | 2024-07-20 18:28 | XMS_ITS | Encounter Summary ---
Author Organization [facility] Address [facility] [place] [address] Care Team Providers Care Email Marketing Coordinator Name Role Phone Janet Davey APRN Primary Care Provider [phone] Encounter Details Date Type Department Care Team (Latest Contact Info) Description 04/10/2022 10:00 AM EDT - 04/10/2022 11:59 PM EDT Hospital [place] [address] Ferdinand Michael Jr., MD [facility] [place] [address] Nephrolithiasis Discharge Disposition: Home Social History Tobacco [...] Date End Date ondansetron (Zofran) 4 mg Tablet Take 4 [...] azelastine (ASTELIN) 137 mcg (0.1 %) Aerosol, [place] as needed. 0 06/17/2017 SUMAtriptan (IMITREX) 100 mg Tablet as needed for Migraine. 1 04/13/2016 hydrocortisone (WESTCORT) 0.2 % Cream Apply topically as needed. 07/25/2015 multivitamin (THERAGRAN) tablet Take 1 tablet by mouth daily. montelukast (SINGULAIR) 10 mg tablet Take 10 mg by mouth daily as needed. 12/07/2010 albuterol (ACCUNEB) 0.63 mg/3 mL nebulizer solution 08/24/2010 omeprazole (PriLOSEC) 20 mg Capsule, Delayed Release(E.C.) as needed. 01/18/2022 03/27/2023 Symbicort 160-4.5 mcg/actuation HFA Aerosol Inhaler Inhale 2 puffs into the lungs 2 times daily. 01/23/2022 07/25/2022 estradioL (Lia) 0.1 mg/24 hr Patch Semiweekly Change 1 patch on the skin twice a week. 8 patch 12 01/04/2022 01/11/2023 chlorthalidone (Hygroten) 25 mg Tablet Take 1 tablet by mouth daily. 90 tablet 3 09/25/2021 05/29/2022 cyclobenzaprine (Flexeril) 5 mg Tablet TK 1 T PO TID PRN 09/08/2019 03/27/2023 documented as of this encounter Plan of Treatment Upcoming Encounters Date Type Department Care Team (Late st Contact Info) Description 08/07/2024 3:30 PM EST Office Visit Orthopaedics at [place] [phone] Tarik Henry MD [facility] [place] [address] 09/22/2024 7:00 AM EST [place] [address] Ferdinand Michael Jr., MD [facility] [place] [place] [address] 09/22/2024 8:00 AM EST [place] [address] Ferdinand Michael Jr., MD [facility] [place] [place] [address] documented as of this encounter Procedures Procedure Name Priority Date/Time Associated Diagnosis Comments US RETROPERITONEAL COMPLETE Routine 04/10/2022 10:23 AM EDT Nephrolithiasis documented in this encounter Results * US Retroperitoneal Complete (04/10/2022 10:23 AM EDT) Anatomical Region Laterality Modality Abdomen Ultrasound 04/10/2022 10:0 6 AM EDT Impressions 04/10/2022 10:55 AM EDT 6 mm inferior nonobstructing renal stone Otherwise within normal limits Thank you for letting us participate in the care of this patient. If you are a health care provider and have any questions regarding this report, please contact the number above. For patients who have questions, please contact the health physician assistant primary care that requested your imaging first. ??ANDRA Roldan c Ln & Dept Chair - Rad Electronically Signed Final Report ?? 04/10/2022 10:54 am Narrative 04/10/2022 10:55 AM EDT Renal ? (Signed Final 04/10/2022 10:54 am) PATIENT INFO: ID #: ? [id number] ?: ??[birth year] (56 yrs)(F) Name: ? JESSICA Charles TRESA ?Visit Date: 04/10/2022 10:06 am PERFORMED BY: Performed By: ? Cece Prajapati RDMS Attending: ?Nelli GILL, Lakeisha Beltran Referred By: ?FERDINAND MICHAEL JR Location: ? [place] SERVICE(S) PROVIDED: URETRO - Retroperitoneal Complete - [id number] ? [id number] INDICATIONS: kidney stone surveillance. no stones on last RBUS. RIGHT KIDNEY: Size (cm) ?L: ??10.0 Cortical Thickness: ?Normal Cortical Echogenicity: ?? Normal Hydronephrosis: ?No sonographic evidence LEFT KIDNEY: Size (cm) ?L: ??10.3 Cortical Thickness: ?Normal Cortical Echogenicity: ?? Normal Hydronephrosis: ?No sonographic evidence Comment: ?0.6 x 0.3 x 0.4 cm inferior non-obstructing renal ? calculi seen. URINARY BLADDER: Right Urinary Jet: Visualized Left Urinary Jet: ??Visualized Pre-void (cm) ? L: ??6.0 ? AP: ??5.9 ? TV: ??8.4 Vol (ml): ?155.7 Comment: ?Partially distended, normal contour. Procedure Note Lakeisha Aiken MD - 04/10/2022 Renal (Signed Final 04/10/2022 10:54 am) PATIENT INFO: ID #: [id number] : [birth year] (56 yrs)(F) Name: JESSICA GTZ Visit Date: 04/10/2022 10:06 am PERFORMED BY: Performed By: Cece Prajapati RDMS Attending: Lakeisha Aiken MD Referred By: FERDINAND MICHAEL JR Location: [place] SERVICE(S) PROVIDED: URETRO - Retroperitoneal Complete - [id number] INDICATIONS: kidney stone surveillance. no stones on last RBUS. RIGHT KIDNEY: Size (cm) L: 10.0 Cortical Thickness: Normal Cortical Echogenicity: Normal Hydronephrosis: No sonographic evidence LEFT KIDNEY: Size (cm) L: 10.3 Cortical Thickness: Normal Cortical Echogenicity: Normal Hydronephrosis: No sonographic evidence Comment: 0.6 x 0.3 x 0.4 cm inferior non-obstructing renal calculi seen. URINARY BLADDER: Right Urinary Jet: Visualized Left Urinary Jet: Visualized Pre-void (cm) L: 6.0 AP: 5.9 TV: 8.4 Vol (ml): 155.7 Comment: Partially distended, normal contour. IMPRESSION 6 mm inferior nonobstructing renal stone Otherwise within normal limits Electronically signed by: Lakeisha Aiken MD, [facility] ([phone]), at 04/10/2022 10:46 AM Thank you for letting us participate in the care of this patient. If you are a health care provider and have any questions regarding this report, please contact the number above. For patients who have questions, please contact the health physician assistant primary care that requested your imaging first. Lakeisha Aiken, [facility] Ln & Dept Chair - Rad Electronically Signed Final Report 04/10/2022 10:54 am Ferdinand Michael Jr., MD IMG US GEN ORDERAB LES documented in this encounter Visit Diagnoses Diagnosis Nephrolithiasis Calculus of kidney documented in this encounter Care Teams Email Marketing Coordinator Relationship Specialty Start Date End Date Janet Davey APRN PCP - General Family Medicine 07/13/20 02/10/24 documented as of this encounter
--- OUTSIDE RECORDS SUMMARY | 2024-07-20 18:28 | XMS_ITS | Encounter Summary ---
Author Organization [facility] Address [facility] [place] [address] Care Team Providers Care Guest Services Manager Name Role Phone Janet Davey Isa GONCALVES Primary Care Provider [phone] Encounter Details Date Type Department Care Team (Latest Contact Info) Description 05/31/2022 2:20 PM EDT TH Visit (TeleHealth) Obstetrics [place] [address] Desiree Zabala MD [facility] DR OBSTETRICS [place] [address] Hot flashes; PATIENT NOT SEEN Social History Tobacco Use Types Packs/Day Years [...] as of this encounter Progress Notes * Syeda John LNA - 05/31/2022 2:20 PM EDT ____ Patient [...] not received required previsit questionnaires, send via [facility] ___Reviewed medications, allergies, pharmacy, pain/depression, education ___Documented height/weight/LMP Other information or concerns: * Desiree Zabala MD - 05/31/2022 2:20 PM EDT SLAGGER Follow Up Visit Reason for Visit: Stacy [...] follow- up required. 5. Normal left ovary. HRT monitoring: HRT start: 2013 Methods tried: Estradiol patch, Mirena IUD (placed 04/2016) Last labs: Lipids 02/12/2022 The 10-year ASCVD risk score ([place] SUE JrJoseph, et al., 2013) is: 1.3% Values used to calculate the score: Age: 56 years Sex: Female Is Non- : No Diabetic: No Tobacco smoker: No Systolic Blood Pressure: 97 mmHg Is BP treated: No HDL Cholesterol: 75 mg/dL Total Cholesterol: 205 mg/dL Last BP: 97/62 Follow up: q 6 months ? Pap 09/2020: NILM, neg HPV, endometrial cells EMB 11/2020: Endometrial biopsy: ?1. Fragments of benign endometrium intermixed with ? blood clot and cervical mucus. ?2. Endometrial tissue fragments with features suggestive ? of an endometrial polyp. ?3. No evidence of hyperplasia or endometritis. Gynecologic History: LMP: No LMP recorded. (Menstrual [...] for follow up of HRT and hotflashes. - Doing well on current HRT regimen - Will be due for labs 01/2023 - RTC in 6 months Desiree Zabala MD 05/31/2022 2:58 PM documented in this encounter Plan of Treatment Upcoming Encounters Date Type Department Care Team (Late st Contact Info) Description 08/07/2024 3:30 PM EST Office [place] [phone] Tarik Henry MD [facility] [place]OPAED[place] [address] 09/22/2024 7:00 AM EST [place] [address]1000 Luis Michael Jr., MD [facility] [place] [address] 09/22/2024 8:00 AM EST [place] [address] Luis Michael Jr., MD [facility] [place] [address] documented as of this encounter Visit Diagnoses Diagnosis Hot flashes Symptomatic menopausal or female climacteric states DH PATIENT NOT SEEN documented in this encounter Care Teams Guest Services Manager Relationship Specialty Start Date End Date Janet Davey APRN PCP - General Family Medicine 07/13/20 02/10/24 documented as of this encounter
--- OUTSIDE RECORDS SUMMARY | 2024-07-20 18:28 | XMS_ITS | Encounter Summary ---
Author Organization [facility], Located Within [facility] [place] [address] Care Team Providers Care Precision Assembler Bench Name Role Phone Janet Davey APRN Primary Care Provider [phone] Encounter Details Date Type Department Care Team (Latest Contact Info) Description 02/12/2022 8:45 AM EDT Laboratory Appointment Lab [address] [place] [address] Hormone replacement therapy (HRT) Social History Tobacco Use Types Packs/Day Years [...] 3:30 PM EST Office [place] [address] Tarik Henry MD [facility] DR ORTHOPAEDIC SURGERY [place], [place] [phone] 09/22/2024 7:00 AM EST [place] [address] Luis Michael Jr., MD [facility] [place] [address] 09/22/2024 8:00 AM EST Office Visit Urology at [facility] [place] [address] Luis Michael Jr., MD [facility] [place] [address] documented as of this encounter Procedures Procedure Name Priority Date/Time Associated Diagnosis Comments HC VENIPUNCTURE Routine 02/12/2022 8:35 AM EDT Hormone replacement therapy (HRT) documented in this encounter Results * Lipid Panel (Reflex Direct LDL) (02/12/2022 8:35 AM EDT) Cholesterol, Total 205 mg/dL [facility] Comment: Lower Risk: <200 mg/dL Average Risk: 200-239 mg/dL Higher Risk: >bj=790 mg/dL Triglyceride 86 mg/dL [facility] Comment: Average Risk/Lower Risk: <150 mg/dL Borderline High Risk: 150-199 mg/dL High Risk: 200-499 mg/dL Very High Risk: >kz=508 mg/dL HDL Cholesterol 75 mg/dL [facility] Comment: Males: ?? Higher Risk: <40 mg/dL Females: ?? Higher Risk: <50 mg/dL LDL Cholesterol 113 mg/dL [facility] Comment: Lowest Risk: <100 mg/dL Lower Risk: 100-129 mg/dL Borderline High Risk: 130-159 mg/dL High Risk: 160-189 mg/dL Very High Risk: >wc=553 mg/dL Cholesterol/HDL Ratio 2.7 ratio [facility] Lipid Interpretation See Note [facility] Comment: Lipid management should be guided by a patient? s ASCVD risk, goals and preferences. ACC/AHA Guidelines recommend high intensity statin if clinical ASCVD or LDL greater than or equal to 190 mg/dL. http://Lush Technologiesurl.com/HIG-HPJ-Miyjmkplo Adults aged 40-75 with LDL 70-189 mg/dL should have their 10 year ASCVD risk estimated with the ACC/AHA ASCVD risk telecommunications clerk http://tools.acc.org/EIFPN-Axev-Kabftrnrg/ Statin should be discussed if risk greater than or equal to 7.5% in non-diabetics. With diabetes, moderate intensity statin is recommended if risk less than 7.5%, high intensity if risk greater than or equal to 7.5%. Annual lipid monitoring on statins is not necessary. Evaluate secondary causes of Triglycerides greater than 500 mg/dL or LDL greater than 190 mg/dL: See table 6 of ACC/AHA Guideline. Lifestyle modification is a critical component of ASCVD risk reduction. Blood 02/12/2022 8:35 AM EDT 02/12/2022 8:54 AM EDT Narrative Resulting Agency Comment Spec In Lab Desiree Zabala MD CHEMISTRY ORDERABLES Performing Organization Address City/State/[facility] Co de Phone Number [facility] [place] [address] documented in this encounter Visit Diagnoses Diagnosis Hormone replacement therapy (HRT) documented in this encounter Care Teams Precision Assembler Bench Relationship Specialty Start Date End Date Janet Davey APRN PCP - General Family Medicine 07/13/20 02/10/24 documented as of this encounter
--- OUTSIDE RECORDS SUMMARY | 2024-07-20 18:28 | XMS_ITS | Encounter Summary ---
Author Organization [facility] [place] [address] Care Team Providers Care Metal Lather Name Role Phone Janet Davey SACHA Primary Care Provider [phone] Encounter Details Date Type Department Care Team (Late st Contact Info) Description 06/12/2022 [place] [phone] Michael Rubio Social History Tobacco Use Types Packs/Day Years [...] encounter Miscellaneous Notes * Telephone Encounter - Michael Rubio - 06/12/2022 4:23 PM EDT Pt is calling asking to do a 24-hr urine test to see why she is making these stones as she will change her diet as needed. Evidently, in previous messages with nursing and Dr. Michael, it was suggested that she have a phone visit but she lives in [place] and Dr. Michael cannot do it in that state. She doesn't want to have to come all the way down for an appt; she just wants to figure out why sheis making stones and would like to do a 24-hr urine. Will send to Dr. Michael for his input. documented in this encounter Plan of Treatment Upcoming Encounters Date Type Department Care Team (Late st Contact Info) Description 08/07/2024 3:30 PM EST Office Visit Orthopaedics at [place] [phone] Tarik Henry MD [facility] [place] [address] 09/22/2024 7:00 AM EST [place] [address] Luis Michael Jr., MD [facility] [place] [address] 09/22/2024 8:00 AM EST [place] [address] Luis Michael Jr., MD [facility] [place] [address] documented as of this encounter Visit Diagnoses Not on filedocumented in this encounter Care Teams Metal Lather Relationship Specialty Start Date End Date Janet Davey APRN PCP - General Family Medicine 07/13/20 02/10/24 documented as of this encounter
--- OUTSIDE RECORDS SUMMARY | 2024-07-20 18:28 | XMS_ITS | Encounter Summary ---
Author Organization [facility] [place] [address] Care Team Providers Care Slot Key Person Name Role Phone Janet Davey APRN Primary Care Provider [phone] Encounter Details Date Type Department Care Team (Late st Contact Info) Description 01/03/2022 Telephone Obstetrics [place] [phone] Jennie Zaldivar, RN Social History Tobacco Use Types Packs/Day [...] encounter Miscellaneous Notes * Telephone Encounter - Jennie Zaldivar, RN - [...] 3:30 PM EST Office [place] [phone] Tarik Henry MD [facility] DR [place] [address] 09/22/2024 7:00 AM [place] [phone] Luis Michael Jr., MD [facility] [place] [address] 09/22/2024 8:00 AM EST [place] [phone] Luis Michael Jr., MD [facility] [place] [address] documented as of this encounter Results * US Transvaginal Non OB (02/12/2022 8:14 AM EDT) Anatomical Region Laterality Modality Ultrasound 02/12/2022 7:57 AM EDT Impressions 02/12/2022 9:31 AM EDT 1. Anteverted uterus with central endometrial echo complex measuring 4 mm in diameter which is equivocal for endometrial biopsy. 2. An IUD is in normal position within the endometrial cavity. 3. Heterogeneous myometrium with a subendometrial/myometrial cyst suggesting adenomyosis. 4. Subcentimeter right ovarian simple cyst. No follow- up required. 5. Normal left ovary. Electronically signed by: Weston Martin MD, [facility] ([phone]), at 02/12/2022 9:24 AM Thank you for letting us participate in the care of this patient. If you are a health care provider and have any questions regarding this report, please contact the number above. For patients who have questions, please contact the health intensive care anaesthetist that requested your imaging first. ? Weston Martin, Staff Physician Electronically Signed Final Report ?? 02/12/2022 09:31 am Narrative 02/12/2022 9:31 AM EDT Gynecological Report ?(Signed Final 02/12/2022 09:31 am) PATIENT INFO: ID #: ? [id number] ?: ??[birth year] (56 yrs)(F) Name: ? JESSICA Melvin ALBRIGHT ?Visit Date: 02/12/2022 07:57 am PERFORMED BY: Performed By: ? Desiree Burrell RDMS Attending: ?Veronica GILL, Weston Maloney Referred By: ?LUDY GRACE Location: ? [place] SERVICE(S) PROVIDED: UTV - Transvaginal - [id number] ?[id number] U3D - ??3D rendering with interpretation - [id number] ? [id number] INDICATIONS: vaginal bleeding, IUD in place TECHNIQUE/SCAN QUALITY: Technique: ?Transducer ID#:[id number] COMPARISON: Transvaginal ultrasound 01/09/21 -------- HISTORY: -------- Age: ?? 56 Hormone Treatment: ? IUD ------- UTERUS: ------- Uterus: ? Visualized Position: ?? Anteverted Size (cm) ?L: ??7.2 ? W: ?? 3.8 ?H: ??4.1 Description: ?? Coronal view of the uterus demonstrates ?normal convex uterine fundal contour. IUD ?appears in normal position. Myometrial cyst ?measuring 0.3 x 0.3 x0.3 cm. ENDOMETRIUM: Endometrium: ?Normal Thickness(mm): ?4.0 Comment: ? 3D rendering with interpretation was performed ?for IUD placement RIGHT OVARY: Status: ?? Visualized Size (cm) ?L: ??1.7 ? W: ?? 0.9 ?H: ??1.0 Vol (ml): ?0.8 Morphology: ?Normal appearance Comment: ? Cyst ??measuring 0.7 x 0.7 x 0.9 cm. LEFT OVARY: Status: ?? Visualized Size (cm) ?L: ??1.4 ? W: ?? 1.3 ?H: ??0.8 Vol (ml): ?0.8 Morphology: ?Normal appearance Procedure Note Weston Martin MD - 02/12/2022 Gynecological Report (Signed Final 02/12/2022 09:31 am) PATIENT INFO: ID #: [id number] : [birth year] (56 yrs)(F) Name: JESSICA ALBRIGHT Visit Date: 02/12/2022 07:57 am PERFORMED BY: Performed By: Desiree Burrell RDMS Attending: Weston Martin MD Referred By: LUDY GRACE Location: [place] SERVICE(S) PROVIDED: UTV - Transvaginal - [id number] U3D - 3D rendering with interpretation - [id number] INDICATIONS: vaginal bleeding, IUD in place TECHNIQUE/SCAN QUALITY: Technique: Transducer ID#:[id number] COMPARISON: Transvaginal ultrasound 01/09/21 -------- HISTORY: -------- Age: 56 Hormone Treatment: IUD ------- UTERUS: ------- Uterus: Visualized Position: Anteverted Size (cm) L: 7.2 W: 3.8 H: 4.1 Description: Coronal view of the uterus demonstrates normal convex uterine fundal contour. IUD appears in normal position. Myometrial cyst measuring 0.3 x 0.3 x0.3 cm. ENDOMETRIUM: Endometrium: Normal Thickness(mm): 4.0 Comment: 3D rendering with interpretation was performed for IUD placement RIGHT OVARY: Status: Visualized Size (cm) L: 1.7 W: 0.9 H: 1.0 Vol (ml): 0.8 Morphology: Normal appearance Comment: Cyst measuring 0.7 x 0.7 x 0.9 cm. LEFT OVARY: Status: Visualized Size (cm) L: 1.4 W: 1.3 H: 0.8 Vol (ml): 0.8 Morphology: Normal appearance IMPRESSION 1. Anteverted uterus with central endometrial echo complex measuring 4 mm in diameter which is equivocal for endometrial biopsy. 2. An IUD is in normal position within the endometrial cavity. 3. Heterogeneous myometrium with a subendometrial/myometrial cyst suggesting adenomyosis. 4. Subcentimeter right ovarian simple cyst. No follow- up required. 5. Normal left ovary. Electronically signed by: Weston Martin MD, [facility] ([phone]), at 02/12/2022 9:24 AM Thank you for letting us participate in the care of this patient. If you are a health care provider and have any questions regarding this report, please contact the number above. For patients who have questions, please contact the health intensive care anaesthetist that requested your imaging first. Weston Martin, Staff Physician Electronically Signed Final Report 02/12/2022 09:31 am Ludy Grace MD IMG US PELVIC ORDERA BLES documented in this encounter Visit Diagnoses Diagnosis Vaginal bleeding Other specified noninflammatory disorder of vagina Vaginal bleeding Other specified noninflammatory disorder of vagina documented in this encounter Care Teams Slot Key Person Relationship Specialty Start Date End Date Janet Davey, SACHA PCP - General Family Medicine 07/13/20 02/10/24 documented as of this encounter
--- OUTSIDE RECORDS SUMMARY | 2024-07-20 18:28 | XMS_ITS | Encounter Summary ---
Author Organization [facility] [place] [address] Care Team Providers Care Autocutter Name Role Phone Janet Davey APRN Primary Care Provider [phone] Encounter Details Date Type Department Care Team (Latest Contact Info) Description 11/02/2021 Travel Social History Tobacco Use [...] 3:30 PM EST Office [place] [phone] Tarik Henry MD [facility] [place] [address] 09/22/2024 7:00 AM EST [place] [phone] Luis Michael Jr., MD [facility] [place] [address] 09/22/2024 8:00 AM EST [place] [address] Luis Michael Jr., MD [facility] [place] [address] documented as of this encounter Visit Diagnoses Not on filedocumented in this encounter Care Teams Autocutter Relationship Specialty Start Date End Date Janet Davey APRN PCP - General Family Medicine 07/13/20 02/10/24 documented as of this encounter
--- OUTSIDE RECORDS SUMMARY | 2024-07-20 18:28 | XMS_ITS | Encounter Summary ---
Author Organization [facility] [place] [address] Care Team Providers Care Store Operations Manager Name Role Phone Janet Davey SENIOR STAFF CONSULTANT Primary Care Provider [phone] Encounter Details Date Type Department Care Team (Late st Contact Info) Description 05/09/2022 Transcribe Orders eDH Incoming Referrals [phone] Janet Davey, SENIOR STAFF CONSULTANT [address], [place] [phone] Social History Tobacco Use Types Packs/Day Years [...] 3:30 PM EST Office [place] [address] Tarik Henry MD [facility] DR ORTHOPAEDIC SURGERY [place], [place] [phone] 09/22/2024 7:00 AM EST Appoint[place] [address] Luis Michael Jr., MD [facility] [place] [address] 09/22/2024 8:00 AM EST Office Visit Urology at [place] [address] Luis Michael Jr., MD [facility] [place] [address] documented as of this encounter Visit Diagnoses Not on filedocumented in this encounter Care Teams Store Operations Manager Relationship Specialty Start Date End Date Janet Davey APRN PCP - General Family Medicine 07/13/20 02/10/24 documented as of this encounter
--- OUTSIDE RECORDS SUMMARY | 2024-07-20 18:28 | XMS_ITS | Encounter Summary ---
Author Organization [facility] [place] [address] Care Team Providers Care Title Checker Name Role Phone Janet Davey HEALTHCARE MANAGER Primary Care Provider [phone] Encounter Details Date Type Department Care Team (Latest Contact Info) Description 11/13/2022 2:46 PM EDT - 11/13/2022 11:59 PM EDT Hospital Encounter Mammography/[place] [address] Janet Davey, HEALTHCARE MANAGER [address] [place], [place] [phone] Visit for screening mammogram Discharge Disposition: Home Social History Tobacco Use [...] End Date Symbicort 160-4.5 mcg/actuation HFA Aerosol InhalerIndications:Un complicated [...] azelastine (ASTELIN) 137 mcg (0.1 %) Aerosol, [place] as needed. 0 06/17/2017 SUMAtriptan (IMITREX) 100 mg Tablet as needed for Migraine. 1 04/13/2016 hydrocortisone (WESTCORT) 0.2 % Cream Apply topically as needed. 07/25/2015 multivitamin (THERAGRAN) tablet Take 1 tablet by mouth daily. montelukast (SINGULAIR) 10 mg tablet Take 10 mg by mouth daily as needed. 12/07/2010 albuterol (ACCUNEB) 0.63 mg/3 mL nebulizer solution 08/24/2010 levonorgestreL (Mirena) 21 mcg/24 hours (8 yrs) 52 mg IUD 1 each by Intrauterine route Continuous (Device). Placed 05/01/16 02/18/2024 hydroCHLOROthiazide (MICROZIDE) 12.5 mg Capsule Take 1 capsule by mouth daily. 90 capsule 3 10/10/2022 07/04/2023 ipratropium (ATROVENT) 21 mcg (0.03 %) [place], Non-AerosolIndication s:Vasomotor rhinitis 2 sprays by Nasal route 2 times daily. 30 mL 5 07/25/2022 09/16/2023 omeprazole (PriLOSEC) 20 mg Capsule, Delayed Release(E.C.) as needed. 01/18/20222022 estradioL (Lia) 0.1 mg/24 hr Patch Semiweekly Change 1 patch on the skin twice a week. 8 patch 12 01/04/2022 01/11/2023 cyclobenzaprine (Flexeril) 5 mg Tablet TK 1 T PO TID PRN 09/08/2019 03/27/2023 documented as of this encounter Plan of Treatment Upcoming Encounters Date Type Department Care Team (Late st Contact Info) Description 08/07/2024 3:30 PM EST Office [place] [address] Tarik Henry MD [facility] DR [place] [address] 09/22/2024 7:00 AM EST Appointment Ultrasound at [place] [phone] Luis Michael Jr., MD [facility] [address] 09/22/2024 8:00 AM EST Office Visit Urology at [place] [phone] Luis Michael Jr., MD [facility] [address] documented as of this encounter Procedures Procedure Name Priority Date/Time Associated Diagnosis Comments MAMMO SCREENING CAD AND ANTHONY BILATERAL Routine 11/13/2022 3:26 PM EDT Visit for screening mammogram documented in this encounter Results * Mammo Screening Cad and Anthony Bilateral (11/13/2022 3:26 PM EDT) Anatomical Region Laterality Modality Breast Bilateral Mammography Impressions 11/14/2022 9:48 AM EDT No mammographic evidence of malignancy. RECOMMENDATION: Routine screening mammography is recommended with the frequency dependent on the patients age, breast cancer risk factors and preference. Additional studies may be recommended for women with higher than average risk for breast cancer. A result letter has been sent to this patient by the [facility]. BI-RADS CATEGORY 1: NEGATIVE * ??Regular screening mammograms starting between age [...] please contact the health child care associate that requested your imaging first. ? Narrative 11/14/2022 9:48 AM EDT REASON FOR EXAM: Screening TECHNIQUE: CC and MLO views were obtained of BOTH breasts. 2D and 3D tomosynthesis images were obtained. Computer aided detection was used. COMPARISON: Prior images BREAST DENSITY: The breasts are heterogeneously dense, which may obscure small masses. FINDINGS: There are no suspicious microcalcifications, masses, or areas of distortion in either breast. No significant changes compared to prior studies. Janet Davey APRN IMG MAMMO ORDERABLES documented in this encounter Visit Diagnoses Diagnosis Visit for screening mammogram Other screening mammogram documented in this encounter Care Teams Title Checker Relationship Specialty Start Date End Date Janet Davey, SACHA PCP - General Family Medicine 07/13/20 02/10/24 documented as of this encounter
--- OUTSIDE RECORDS SUMMARY | 2024-07-20 18:28 | XMS_ITS | Encounter Summary ---
Author Organization [facility] [place] [address] Care Team Providers Care Hand Sewer Shoes Name Role Phone Janet Davey APRN Primary Care Provider [phone] Encounter Details Date Type Department Care Team (Late st Contact Info) Description 05/17/2022 [place] [phone] Luis Michael Jr., MD [facility] [place] [address] Social History Tobacco Use Types Packs/Day Years [...] 3:30 PM EST [place] [phone] Tarik Henry MD [facility] [place] [address] 09/22/2024 7:00 AM EST [place] [address] Luis Michael Jr., MD [facility] [place] [address] 09/22/2024 8:00 AM EST [place] [address] Luis Michael Jr., MD [facility] [place] [address] documented as of this encounter Visit Diagnoses Not on filedocumented in this encounter Care Teams Hand Sewer Shoes Relationship Specialty Start Date End Date Janet Davey APRN PCP - General Family Medicine 07/13/20 02/10/24 documented as of this encounter
--- OUTSIDE RECORDS SUMMARY | 2024-07-20 18:28 | XMS_ITS | Encounter Summary ---
Author Organization [facility] [place] [address] Care Team Providers Care Set Up Operator Name Role Phone Janet Patel APRN Primary Care Provider [phone] Reason for Visit * Rehabilitation (Routine) - Closed Specialty Diagnoses / Procedures Referred By Alberta t Referred To Contact Pulmonology Diagnoses Post-COVID chronic cough Post-COVID chronic dyspnea Post-COVID syndrome Juan Dotson MD [facility] [place] [address] [facility] [place] [address] Referral ID Status Reason Start Date Expiration Date V isits Requested Visits Authorized [id number] Closed Evaluate and Treat 05/29/2022 05/29/2023 36 36 Encounter Details Date Type Department Care Team (Late st Contact Info) Description 06/27/2022 9:00 AM EDT [place] [address] Sumanth Hicks Jr., MD [facility] [place] [address] Post-COVID syndrome (Primary Dx); Asthma, unspecified asthma severity, unspecified [...] Sign Reading Time Taken Comments Blood Pressure 117/70 06/27/2022 7:46 AM EDT Pulse 77 06/27/2022 7:46 AM EDT Temperature 36.1 ??C (96.9 ??F) 06/27/2022 7:46 AM ED T Respiratory Rate 16 06/27/2022 7:46 AM EDT Oxygen Saturation 100% 06/27/2022 7:46 AM EDT Inhaled Oxygen Concentration - - Weight 65.8 kg (145 lb) 06/27/2022 7:46 AM EDT Height 172.7 cm (5' 8) 06/27/2022 7:46 AM EDT Body Mass Index 22.05 06/27/2022 7:46 AM EDT documented in this encounter Progress Notes * Sumanth Hicks Jr., MD - 06/27/2022 9:00 AM EDT Pulmonary Rehabilitation Consult Reason for Consult: I was asked by Dr. JANET PATEL to evaluate this patient for participation in pulmonary rehabilitation. I have personally interviewed and examined the patient, and reviewed her radiographic studies and laboratory data. HPI: Ms. Albright is a 56 y.o. female who presents for medical clearance prior to starting pulmonary rehabilitation. She had COVID in 11/2021 and has prolonged post-COVID syndrome symptoms. History of childhood asthma. Triggers include respiratory infections and on occasion aerobic exercise. She has multiple allergies (grasses, trees, mold) and received immunotherapy in the past. Current using Cami. Lifelong non-smoker. Occasional non-productive cough. Nocturnal symptoms of sneezing, nasal congestion. Exertional dyspnea walking on the level, or up inclines. Dyspnea with 2 flights of stairs. She has not undergone prior evaluation in the [facility]. Upcoming evaluation is plannedwith Dr. Norman. Inhaler technique is reviewed. Good technique with low resistance (MDI / Respimat) inhalers. Cleaning for spacer device and for nebulizer kit reviewed. Pursed lip breathing techniques reviewed. Oxygen therapy 1-2 pulse with activity. Patient Active Problem List Diagnosis Code ??? Asthma J45.909 ??? Nephrolithiasis N20.0 ??? Raynaud's disease I73.00 ??? Migraines G43.909 ??? Hot flashes, menopausal N95.1 ??? Hormone replacement therapy (postmenopausal) Z79.890 ??? *History of COVID-19 Z86.16 ??? Post-COVID syndrome U09.9 ??? Forgetfulness R68.89 Allergies Grass pollen-bermuda, standard and Mold extracts Medications Current Outpatient Medications on File Prior to Visit Medication Sig Dispense Refill ??? ondansetron (Zofran) 4 mg Tablet Take 4 mg by mouth every 8 hours as needed. ??? omeprazole (PriLOSEC) 20 mg Capsule, Delayed Release(E.C.) TAKE 1 CAPSULE BY MOUTH EVERY DAY 30MINUTES BEFORE EATING ??? ProChamber Spacer USE DIRECTED [...] Take by mouth. 2 caps QD ??? acyclovir (ZOVIRAX) 200 mg Capsule as needed. ??? galantamine (RAZADYNE) 12 mg Tablet 12 mg 2 times daily. 0 ??? memantine (NAMENDA) 5 mg Tablet 5 mg 2 times daily. 0 ??? azelastine (ASTELIN) 137 mcg (0.1 %) Aerosol, [place] instill 1 spray into each nostril twice a day 0 ??? SUMAtriptan (IMITREX) 100 mg Tablet as needed for Migraine. 1 ??? hydrocortisone (WESTCORT) 0.2 % Cream Apply topically as needed. ??? multivitamin (THERAGRAN) tablet Take 1 tablet by mouth daily. ??? montelukast (SINGULAIR) 10 mg tablet Take 10 mg by mouth every morning. ??? albuterol (ACCUNEB) 0.63 mg/3 mL nebulizer solution ??? cyclobenzaprine (Flexeril) 5 mg Tablet TK 1 T PO TID PRN No current facility-administered medications on file prior to visit. Social History Socioeconomic History ??? Marital status: [...] History Narrative with 3 children. Lives in [place], [place]. 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 Eats relatively healthy with fruits, vegetables, yogurt, and milk; minimal meat. Eats 3 meals per day, does not drink tea or coffee, and occasionally drinks soda.Her youngest is 19 yrs old,in college in [place]. The other two are out of the [...] on file Housing Stability: Not on file Family History Problem Relation Age of Onset ??? Osteoporosis Mother ??? Depression Mother ??? Breast Cancer Paternal Grandmother 45 ??? Cancer Maternal Aunt lymph node CA ??? Depression Father ??? Colorectal Cancer Neg Hx ??? Ovarian Cancer Neg Hx Review of Systems A complete review of systems was obtained. Positives are noted in the HPI. All remaining systems are negative. Physical Exam General Pleasant female in no acute respiratory distress. Vitals Pulse: 77 Resp: 16 BP: 117/70 Weight 65.8 kg (145 lb). Body mass index is 22.05 kg/m??. O2 sat 100% on RA HEENT PER, EOMI. Neck Supple, no stridor. Trachea is midline. Lungs Clear to auscultation bilaterally. No crackles, wheezes, or pleural rubs. Chest excursion is symmetric. Cardiac Regular rhythm, no murmurs. Extremities No cyanosis, clubbing, or peripheral edema. Neuro Alert and oriented to name, time, and location. Ambulates without difficulty. Objective Data Radiology 01/08/2022 CCT no PE, no infiltrate. Scant L base atelectasis vs linear scar. Cardiac Testing 9.7.2021 ECHO LVEF 66%. No impaired diastolic relaxation. RV size and function appears normal. Six minute walk test 497m (1630ft) in six minutes, no rests, no oxygen desaturation. Pulmonary Function Testing 02/02/2022 Normal bulk airflow, lung volumes, and gas diffusion. Assessment Post-COVID syndrome with normal pulmonary function, normal chest imaging, and normal ECHO. For now would plan to continue current inhalers (with applicable use and cleaning instructions.) No evidenceof resting or ambulatory oxygen desaturation. Diaphragmatic breathing techniques demonstrated. Continue working with outpatient physical therapy. Reviewed energy conservation techniques. Plan Ms. Albright is medically cleared to participate in pulmonary rehabilitation. Plan participation in virtual pulmonary rehabilitation when feasible with her current hectic schedule. Add to pulmonary support group mailing list. Patients in Pulmonary Rehabilitation who develop hemodynamic instability will be managed per the program's policies and procedures, and will be documented accordingly if needed. --Helene Hicks MD documented in this encounter Plan of Treatment Upcoming Encounters Date Type Department Care Team (Late st Contact Info) Description 08/07/2024 3:30 PM EST [place] [phone] Tarik Henry MD [facility] DR [place] [address] 09/22/2024 7:00 AM EST Appointment Ultrasound at [place] [phone] Luis Michael Jr., MD [facility] [place] [address] 09/22/2024 8:00 AM EST Office Visit Urology at [place] [phone] Luis Michael Jr., MD [facility] [place] [address] Scheduled Referrals Name Type Priority Associated Diagnoses Orde r Schedule Referral to Pulmonary Rehab Outpatient Referral Routine Post-COVID chronic cough Post-COVID chronic dyspnea Post-COVID syndrome Ordered: 05/29/2022 documented as of this encounter Visit Diagnoses Diagnosis Post-COVID syndrome- Primary Asthma, unspecified asthma severity, unspecified whether complicated, unspecified whether persistent documented in this encounter Care Teams Set Up Operator Relationship Specialty Start Date End Date Janet Patel APRN PCP - General Family Medicine 07/13/20 02/10/24 documented as of this encounter
--- OUTSIDE RECORDS SUMMARY | 2024-07-20 18:28 | XMS_ITS | Encounter Summary ---
Author Organization [facility] [place] [address] Care Team Providers Care Wedding Makeup Artist Name Role Phone Janet Davey APRN Primary Care Provider [phone] Encounter Details Date Type Department Care Team (Late st Contact Info) Description 03/28/2022 Episode Changes [place] [phone] Juan Dotson MD [facility] [place] [address] Social History Tobacco Use Types Packs/Day Years [...] 3:30 PM EST [place] [phone] Tarik Henry MD [facility] [place] [address] 09/22/2024 7:00 AM EST [place] [address] Luis Michael Jr., MD [facility] [place] [address] 09/22/2024 8:00 AM EST [place] [address] Luis Michael Jr., MD [facility] [place] [address] documented as of this encounter Visit Diagnoses Not on filedocumented in this encounter Care Teams Wedding Makeup Artist Relationship Specialty Start Date End Date Janet Davey APRN PCP - General Family Medicine 07/13/20 02/10/24 documented as of this encounter
--- OUTSIDE RECORDS SUMMARY | 2024-07-20 18:28 | XMS_ITS | Encounter Summary ---
Author Organization [facility] [place] [address] Care Team Providers Care Border Inspector Name Role Phone Janet Davey APRN Primary Care Provider [phone] Encounter Details Date Type Department Care Team (Late st Contact Info) Description 12/05/2021 Telephone Obstetrics [place] [phone] Lucy Shepard MD [address] [facility] [address] [place] [address] Social History Tobacco Use Types Packs/Day Years [...] encounter Miscellaneous Notes * Telephone Encounter - Lucy Shepard MD - [...] decrease in night sweats. I discussed recommendation forfasting lipid panel to assess heart health (to assess CHADs score) while on HRT, and to try to see her within the next couple months in the office for follow-up. Pt is in agreement. Pt states she lives far away, and is wondering if she can do fasting labs in [facility], or day of the appointment.I reviewed with the patient that if a morning appointment is available she can certainly do so, butthat if she needs labs closer to home given they need to be fasting labs we can try to coordinate this. I will reach out to schedulers to see about availability. Fasting lipid orders placed today in case pt is able to obtain labs here prior to appointment. Plan above reviewed with Dr. Zabala, attending mid level java developer. Lucy Shepard MD PGY2 Bmet documented in this encounter Plan of Treatment Upcoming Encounters Date Type Department Care Team (Late st Contact Info) Description 08/07/2024 3:30 PM EST [place] [address] Tarik Henry MD [facility] [place] [address] 09/22/2024 7:00 AM [place] [phone] Luis Micahel Jr., MD [facility] [place] [address] 09/22/2024 8:00 AM EST [place] [phone] Luis Michael Jr., MD [facility] [place] [address] documented as of this encounter Results * Lipid Panel (Reflex Direct LDL) (02/12/2022 8:35 AM EDT) Cholesterol, Total 205 mg/dL [facility] Comment: Lower Risk: <200 mg/dL Average Risk: 200-239 mg/dL Higher Risk: >pj=627 mg/dL Triglyceride 86 mg/dL [facility] Comment: Average Risk/Lower Risk: <150 mg/dL Borderline High Risk: 150-199 mg/dL High Risk: 200-499 mg/dL Very High Risk: >js=670 mg/dL HDL Cholesterol 75 mg/dL [facility] Comment: Males: ?? Higher Risk: <40 mg/dL Females: ?? Higher Risk: <50 mg/dL LDL Cholesterol 113 mg/dL [facility] Comment: Lowest Risk: <100 mg/dL Lower Risk: 100-129 mg/dL Borderline High Risk: 130-159 mg/dL High Risk: 160-189 mg/dL Very High Risk: >gs=550 mg/dL Cholesterol/HDL Ratio 2.7 ratio [facility] Lipid Interpretation See Note [facility] Comment: Lipid management should be guided by a patient? s ASCVD risk, goals and preferences. ACC/AHA Guidelines recommend high intensity statin if clinical ASCVD or LDL greater than or equal to 190 mg/dL. http://[employer].com/MFJ-YWZ-Zsmczxcfg Adults aged 40-75 with LDL 70-189 mg/dL should have their 10 year ASCVD risk estimated with the ACC/AHA ASCVD risk building construction estimator http://tools.acc.org/AQYDQ-Wbcj-Awhnusnsx/ Statin should be discussed if risk greater [...] In Lab Desiree Zabala MD CHEMISTRY ORDERABLES [facility] [place] [address] documented in this encounter Visit Diagnoses Diagnosis Hot flashes, menopausal Symptomatic menopausal or female climacteric states Hormone replacement therapy (HRT) documented in this encounter Care Teams Border Inspector Relationship Specialty Start Date End Date Janet Davey APRN PCP - General Family Medicine 07/13/20 02/10/24 documented as of this encounter
--- OUTSIDE RECORDS SUMMARY | 2024-07-20 18:28 | XMS_ITS | Encounter Summary ---
Author Organization [facility] Address [facility] [place] [address] Care Team Providers Care Home Appliance Technician Name Role Phone Janet Davey APRN Primary Care Provider [phone] Encounter Details Date Type Department Care Team (Latest Contact Info) Description 02/12/2022 7:48 AM EDT - 02/12/2022 11:59 PM EDT Hospital Encounter [place] [address] Ludy Grace MD [facility] OBSTETRICS [place] [address] Vaginal bleeding Discharge Disposition: Home Social History Tobacco [...] ProChamber Spacer USE DIRECTED WITH INHALER 12/25/2021 calcium carbonate/vitamin D3 (VITAMIN D-3 ORAL) Take [...] azelastine (ASTELIN) 137 mcg (0.1 %) Aerosol, [place] as needed. 0 06/17/2017 SUMAtriptan (IMITREX) 100 [...] 3:30 PM EST Office [place] [address] Tarik Henry MD [facility] DR [place] [address] 09/22/2024 7:00 AM EST Appointment [place] [address] Luis Michael Jr., MD [facility] [place] [address] 09/22/2024 8:00 AM EST Office [place] [address] Luis Michael Jr., MD [facility] [place] [address] documented as of this encounter Procedures Procedure Name Priority Date/Time Associated Diagnosis Comments US TRANSVAGINAL NON OB Routine 02/12/2022 8:14 AM EDT Vaginal bleeding documented in this encounter Results * [...] follow- up required. 5. Normal left ovary. Thank you for letting us participate in the care of this patient. If you are a health care provider and have any questions regarding this report, please contact the number above. For patients who have questions, please contact the health gericare aide teacher that requested your imaging first. ? Weston Martin, Staff Physician Electronically Signed Final Report ?? 02/12/2022 09:31 am Narrative 02/12/2022 9:31 AM EDT Gynecological Report ?(Signed Final 02/12/2022 09:31 am) PATIENT INFO: ID #: ? [id number] ?: ??[birth year] (56 yrs)(F) Name: ? JESSICA ALBRIGHT ?Visit Date: 02/12/2022 07:57 am PERFORMED BY: Performed By: ? Desiree Burrell RDMS Attending: ?Veronica GILL, Weston Maloney Referred By: ?LUDY GRACE Location: ? [place] SERVICE(S) PROVIDED: UTV - Transvaginal - [id number] ?[id number] U3D - ??3D rendering with interpretation - [id number] ? [id number] INDICATIONS: vaginal bleeding, IUD in place TECHNIQUE/SCAN [...] 02/12/2022 09:31 am) PATIENT INFO: ID #: [id number] : [birth year] (56 yrs)(F) Name: JESSICA ALBRIGHT Visit Date: 02/12/2022 07:57 am PERFORMED BY: Performed By: Desiree Burrell RDMS Attending: Weston Martin MD Referred By: LUDY GRACE Location: [place] SERVICE(S) PROVIDED: UTV - Transvaginal - [id number] U3D - 3D rendering with interpretation - [id number] INDICATIONS: vaginal bleeding, IUD in place TECHNIQUE/SCAN [...] follow- up required. 5. Normal left ovary. Thank you for letting us participate in the care of this patient. If you are a health care provider and have any questions regarding this report, please contact the number above. For patients who have questions, please contact the health gericare aide teacher that requested your imaging first. Weston Martin, Staff Physician Electronically Signed Final Report 02/12/2022 09:31 am Ludy Grace MD IMG US PELVIC ORDERA BLES documented in this encounter Visit Diagnoses Diagnosis Vaginal bleeding Other specified noninflammatory disorder of vagina documented in this encounter Care Teams Home Appliance Technician Relationship Specialty Start Date End Date Janet DaveySACHA PCP - General Family Medicine 07/13/20 02/10/24 documented as of this encounter
--- OUTSIDE RECORDS SUMMARY | 2024-07-20 18:28 | XMS_ITS | Encounter Summary ---
Author Organization [facility] [place] [address] Care Team Providers Care Loader Demolder Name Role Phone Janet Davey APRN Primary Care Provider [phone] Encounter Details Date Type Department Care Team (Late st Contact Info) Description 10/10/2022 3:00 PM EST Office Visit [place] [phone] Maile Hinojosa MD [facility] [place] [address] Osteoporosis, unspecified osteoporosis type, unspecified pathological fracture [...] Sign Reading Time Taken Comments Blood Pressure 101/70 10/10/2022 3:02 PM EST Pulse 80 10/10/2022 3:02 PM EST Temperature 36.8 ??C (98.3 ??F) 10/10/2022 3:02 PM ES T Respiratory Rate - - Oxygen Saturation 99% 10/10/2022 3:02 PM EST Inhaled Oxygen Concentration - - Weight 67.6 kg (149 lb) 10/10/2022 3:02 PM EST Height 172 cm (5' 7.72) 10/10/2022 3:02 PM EST Body Mass Index 22.85 10/10/2022 3:02 PM EST documented in this encounter Progress Notes * Maile Hinojosa MD - 10/10/2022 3:00 PM EST Images from the original note were not included. 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 Her dad is in hospice, suddenly 2 moth ago from unexpected [place], mom is decliningand she has struggled with long COVID. Had one kidney stone episode while with COVID. She has had 3 episodes of kidney stones before, does not remember when was a last one, in pathologyI see one in 2009. Has been on ERT for a long time, SOFTWARE SALES decided to continue. She tells me has been on prednisone for two sheldon, 3-4 month for asthma. Her last BMD by Hologic DXA done on 08/2022 LS - 1.0 SD LFN -2.9 SD, 4.5% loss LH -2.2 SD on T score BMD by Hologic DXA done on 06/2020 LS - 0.7 SD LFN -2.7 SD LH -2.2 SD on T score ?? Other risk factors for fracture/osteoporosis are: []? Yes [x]? No Smoking, if yes, how long []? Yes [x]? No Drinking alcohol. If yes, how much [x]? Yes []? No Exercise If yes how long and what kind of exercise, 5 days a week 30-50min []? Yes [x]? No Stomach or bowel surgery. If yes, When and what kind []? Yes [x]? No Loose bowel movements. If yes, how frequently and how long [x]? Yes []? No Loss of height 1 [x]? Yes []? No History of kidney stones? If yes, when and how many episodes? []? Yes [x]? No Kidney or liver problems? If yes, what kind and how long? ?? Average time spent outside in direct sun a day []? 0-5 min []? 5-10 min []? 11-15 min []? 16-20 min []? 21-25 min []? 26-30 min [x]? >30 min For women: Start of menstrual cycle 13 End of menstrual cycle on ERT now Daily calcium intake: []? 0-100 mg []? 101-200 mg []? 201-300 mg []? 301-400 mg []? 401-500 mg [x]? 501-600 mg from food, does not take Ca suppl []? 601-700 mg []? 701-900 mg []? 901-1100 mg []? 1420-4512 mg []? 4101-2830 mg []? Above 1500 mg ?? Medications: Current Outpatient Medications on File Prior to Visit Medication Sig Dispense Refill ??? ipratropium (ATROVENT) 21 mcg (0.03 %) Garretson, Non-Aerosol 2 sprays by Nasal route 2 times daily. 30 mL 5 ??? Symbicort 160-4.5 mcg/actuation HFA Aerosol Inhaler Inhale 1 puff into the lungs 2 times daily.May also inhale 1 puff every 4 hours as needed (Shortness of breath, cough or wheezing (up to 4 puffs total daily)). 1 each 0 ??? ondansetron (Zofran) 4 mg Tablet [...] mouth 3 times daily as needed. ??? estradioL (Lia) 0.1 mg/24 hr Patch [...] azelastine (ASTELIN) 137 mcg (0.1 %) Aerosol, Garretson instill 1 spray into each nostril twice [...] Post-COVID syndrome U09.9 ??? Forgetfulness R68.89 Allergies Allergen Reactions ??? Grass Pollen-[place], Standard [...] History Narrative with 3 children. Lives in [place], [place]. 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 Eats relatively healthy with fruits, vegetables, yogurt, and milk; minimal meat. Eats 3 meals per day, does not drink tea or coffee, and occasionally drinks soda.Her youngest is 19 yrs old,in college in [place]. The other two are out of the [...] Stability: Not on file Physical Examination: BP 101/70 Pulse 80 Temp 36.8 ??C (98.3 ??F) Ht 172 cm (5' 7.72) Wt 67.6 kg (149 lb) CfY311% BMI 22.85 kg/m?? Spine: without kyphosis, without pain on palpation. Patient able to stand up without assistance Appearance:??well hydrated, well nourished, oriented x 3, in nad. ?? Labs 03/2022 Chem 7 in good range 10/2021 24h urine Ca 303mg. 05/2021 PTH 59, CTX 283 (now low), 24h urine kidney stone profile showed Ca 261mg and 3.5x increaseCa hydroxyapatite saturation. 06/2020 25-D 42, PTH 40, Es 135, FSH elevated, ca 9.1 ?? Assessment and Plan ?? 1. Osteoporosis/ hx of kidney stones Mrs [...] 24h urine stone profile shows high Ca, will start HCTZ 12.5 mg now and repeat 24h urine Ca in 4 weeks with PTH, Ca, K levels. B. Patient also doeshave Vitamin D goal, 30 ng/ml and above. Will continue vit D. C. Will order BMD by DXA 08/2023, on ERT and for bones it would be helpful and reduce fracture risk.Dose of ERT can be reduced and it still will help her bones. D. I will schedule patient for outpatient visit at 6 month. ?? Thank you for allowing me to participate in the care of this very pleasant patient. I spend 40min in chart review, DXA, labs, pathology reports of stones, discussing osteoporosis and writing my note. ?? Sincerely, ?? Maile Hinojosa MD Professor documented in this encounter Plan of Treatment Upcoming Encounters Date Type Department Care Team (Late st Contact Info) Description 08/07/2024 3:30 PM EST Office Visit Orthopaedics at [place] [phone] Tarik Henry MD [facility] [place] [address] 09/22/2024 7:00 AM EST Appointment Ultrasound at [place] [phone] Luis Michael Jr., MD [facility] [place] [address] 09/22/2024 8:00 AM EST Office Visit Urology at [place] [phone] Luis Michael Jr., MD [facility] [place] [address] documented as of this encounter Results * PTH (11/13/2022 3:06 PM EDT) Parathyroid Hormone 32 15 - 65 pg/mL [facility] Blood 11/13/2022 3:06 PM EDT 11/13/2022 3:16 PM EDT Narrative Resulting Agency Comment Spec In Lab Maile Hinojosa MD CHEMISTRY ORDERABLES [facility] [place] [address] * Basic Metabolic Panel (non-fasting) (11/13/2022 3:06 PM EDT) Glucose 106 65 - 199 mg/dL [facility] Comment:Diabetes: >=200 mg/d L plus symptoms Blood Urea Nitrogen 12 8 - 18 mg/dL [facility] Creatinine 0.87 0.70 - 1.20 mg/dL [facility] Sodium 138 135 - 145 mmol/L [facility] Potassium 3.5 3.5 - 5.0 mmol/L [facility] Comment: Please note: ??Patients with WBC >100,000 may have falsely elevated Potassium levels. ??For accurate Potassium quantification in these patients send serum separator tube (gold top) for subsequent determinations. ??Contact the Clinical Chemistry Laboratory if there are any questions. Chloride 100 98 - 107 mmol/L [facility] Carbon Dioxide 28 22 - 31 mmol/L [facility] Anion Gap 10 5 - 15 mmol/L [facility] Calcium 9.4 8.5 - 10.5 mg/dL [facility] Est Glomerular Filtration Rate 77 >=60 mL/min/1. 73 m?? [facility] Comment: This patient's estimated GFR was [...] Hinojosa MD CHEMISTRY ORDERABLES Performing Organization Address City/[facility]/ZIP Co de Phone Number [facility] [place] [address] * Creatinine, urine, 24 hour (11/12/2022 6:55 AM EDT) Cre Concentration, U24 29 mg/dL [facility] Creatinine, 24 Hour Urine 0.94 0.70 - 1.60 g/24hr [facility] Urine 11/12/2022 6:55 AM EDT 11/13/2022 5:47 PM EDT Narrative Resulting Agency Comment Spec In Lab Maile Hinojosa MD URINE ORDERABLES Performing Organization Address [facility] Co de Phone Number [facility] [place] [address] * Calcium, urine, 24 hour (11/12/2022 6:55 AM EDT) Ca Concentration, U24 6.7 mg/dL [facility] Calcium, 24 Hour Urine 217.8 50.0 - 300.0 mg/24hr [facility] Comment:Reference Range: 50. 0-300.0 mg/24 hour based on diet. Urine 11/12/2022 6:55 AM EDT 11/13/2022 5:47 PM EDT Narrative Resulting Agency Comment Spec In Lab Miale Hinojosa MD URINE ORDERABLES Performing Organization Address City/[facility] Co de Phone Number [facility] [place] [address] documented in this encounter Visit Diagnoses Diagnosis Osteoporosis, unspecified osteoporosis type, unspecified pathological fracture presence documented in this encounter Care Teams Loader Demolder Relationship Specialty Start Date End Date Janet Davey, SACHA PCP - General Family Medicine 07/13/20 02/10/24 documented as of this encounter
--- OUTSIDE RECORDS SUMMARY | 2024-07-20 18:28 | XMS_ITS | Encounter Summary ---
Author Organization [facility] [place] [address] Care Team Providers Care Retirement Consultant Name Role Phone Janet Davey APRN Primary Care Provider [phone] Encounter Details Date Type Department Care Team (Late st Contact Info) Description 12/28/2021 Orders Only Obstetrics [place] [phone] [facility]se Hough[facility] Social History Tobacco Use Types Packs/Day Years [...] 3:30 PM EST Office [place] [phone] Tarik Henry MD [facility] ORTHOPAEDIC SURGERY [place], [place] [phone] 09/22/2024 7:00 AM EST [place] [address] Luis Michael Jr., MD [facility] [place] [address] 09/22/2024 8:00 AM EST [place] [address] Luis Michael Jr., MD [facility] [place] [address] documented as of this encounter Visit Diagnoses Not on filedocumented in this encounter Care Teams Retirement Consultant Relationship Specialty Start Date End Date Janet Davey APRN PCP - General Family Medicine 07/13/20 02/10/24 documented as of this encounter
--- OUTSIDE RECORDS SUMMARY | 2024-07-20 18:28 | XMS_ITS | Encounter Summary ---
Author Organization [facility] [place] [address] Care Team Providers Care Manager Career Name Role Phone Janet Davey APRN Primary Care Provider [phone] Encounter Details Date Type Department Care Team (Latest Contact Info) Description 10/10/2022 Travel Social History Tobacco Use Types Packs/Day [...] 3:30 PM EST Office Visit [place] [phone] Tarik Henry MD [facility] [place]THOPAED[place] [address] 09/22/2024 7:00 AM EST Appointment [place] [phone] Luis Michael Jr., MD [facility] [place] [address] 09/22/2024 8:00 AM EST Office [place] [address] Luis Michael Jr., MD [facility] [place] [address] documented as of this encounter Visit Diagnoses Not on filedocumented in this encounter Care Teams Manager Career Relationship Specialty Start Date End Date Janet Davey APRN PCP - General Family Medicine 07/13/20 02/10/24 documented as of this encounter
--- OUTSIDE RECORDS SUMMARY | 2024-07-20 18:28 | XMS_ITS | Encounter Summary ---
Author Organization [facility] [place] [address] Care Team Providers Care Boiler Coverer Helper Name Role Phone Janet Davey APRN Primary Care Provider [phone] Encounter Details Date Type Department Care Team (Late st Contact Info) Description 06/21/2022 [place] [phone] Nicole Cheng RT Social History Tobacco Use [...] Encounter - Nicole Cheng RT - 06/21/2022 2:33 PM EDT Called Stacy on her cellphone and LM to call to discuss pulmonary rehabilitation referral and question if plan is to attend Pulm rehab at [facility], or would prefer virtual pulmonary rehab at [facility] documented in this encounter Plan of Treatment Upcoming Encounters Date Type Department Care Team (Late st Contact Info) Description 08/07/2024 3:30 PM EST Office Visit Orthopaedics at [place] [phone] Tarik Henry MD [facility] [address] [place] [address] 09/22/2024 7:00 AM EST Appointment [place] [address] Luis Michael Jr., MD [facility] [place] [address] 09/22/2024 8:00 AM EST Office Visit Urology at [place] [phone] Luis Michael Jr., MD [facility] [place] [address] documented as of this encounter Visit Diagnoses Not on filedocumented in this encounter Care Teams Boiler Coverer Helper Relationship Specialty Start Date End Date Janet Davey APRN PCP - General Family Medicine 07/13/20 02/10/24 documented as of this encounter
--- OUTSIDE RECORDS SUMMARY | 2024-07-20 18:28 | XMS_ITS | Encounter Summary ---
Author Organization [facility] [place] [address] Care Team Providers Care Chain Machine Operator Name Role Phone Janet Davey SACHA Primary Care Provider [phone] Reason for Visit * Reason Comments Annual Exam Encounter Details Date Type Department Care Team (Latest Contact Info) Description 11/13/2022 4:00 PM EDT Office Visit Obstetrics [place] [address] Mil Randhawa APRN [facility] OBSTETRICS [place] [address] Routine gynecological examination; Hormone replacement therapy (postmenopausal); IUD check up; Vaginal pain Social History Tobacco Use Types Packs/Day [...] Sign Reading Time Taken Comments Blood Pressure 113/61 11/13/2022 3:45 PM EDT Pulse 65 11/13/2022 3:45 PM EDT Temperature 35.8 ??C (96.5 ??F) 11/13/2022 3:45 PM ED T Respiratory Rate 18 11/13/2022 3:45 PM EDT Oxygen Saturation 100% 11/13/2022 3:45 PM EDT Inhaled Oxygen Concentration - - Weight 68.1 kg (150 lb 3.2 oz) 11/13/2022 3:45 P M EDT Height 172.7 cm (5' 8) 11/13/2022 3:45 PM EDT Body Mass Index 22.84 11/13/2022 3:45 PM EDT documented in this encounter Progress Notes * Mil Randhawa APRN - 11/13/2022 4:00 PM EDT Images from the original note were not included. Reason for Visit: Annual WWV Subjective: Jessica Gtz is a 57 y.o. female who is here today for her annual well woman visit. Patient notes she has been suffering with Long Covid- was dx last November. Notes her a massive heart attack in July 2022. Notes intermittent left labia pain- noted it was worse when having intercourse- notes it comes randomly- denies irritation or itching. Denies pain today. No LMP recorded. (Menstrual status: IUD). She is postmenopausal/no PMB She has remote history of abnormal paps. HPV vaccination series was not completed. Recent pap history is as follows: Cervical Cancer Screening History - Results and Follow-ups All results Result date Tests and Procedures Follow-ups 10/21/2020 (Order#[id number]) [facility]quisitions Cytology Final Report *Pap Smear: NILM, Other *HPV: HRHPV - PROJECT CONTROLS SCHEDULER CYTOLOGY FINAL REPORT: [id number] Location: 5L The signing pathologist has (i) examined the relevant preparation(s) for the specimen(s) and (ii) rendered or confirmed the diagnosis(es). . ... Endometrial biopsy Due Date: 11/24/2020 08/05/2017 (Order#[id number]) [facility] Cytology Final Report *Pap Smear: NILM PROJECT CONTROLS SCHEDULER CYTOLOGY FINAL REPORT: [id number] Location: 5L The signing pathologist has (i) examined the relevant preparation(s) for the specimen(s) and (ii) rendered or confirmed the diagnosis(es). . ... 05/01/2016 (Order#[id number]) [facility] Cytology Final Report PROJECT CONTROLS SCHEDULER CYTOLOGY FINAL REPORT: [id number] Location: 5L The signing pathologist has (i) examined the relevant preparation(s) for the specimen(s) and (ii) rendered or confirmed the diagnosis(es). . ... 06/28/2015 (Order#[id number]) [facility] Cytology Final Report PROJECT CONTROLS SCHEDULER CYTOLOGY FINAL REPORT: The signing pathologist has (i) examined the relevant preparation(s) forthe specimen(s) and (ii) rendered or confirmed the diagnosis(es). Accession Number: [id number] Location: 5L . G... 03/06/2012 (Order#[id number]) [facility] Cytology Final Report PROJECT CONTROLS SCHEDULER CYTOLOGY FINAL REPORT: [facility] Provider: [place] GAXIOLA Pt. Name: JESSICA GTZ Acc #: [id number] Pt. Col Date: 03/06/2012 /Sex: 1965,(46 ... *Indicates a transcribed result I asked Jessica if she has ever felt unsafe in her home or relationship and she denies domestic abuse or safety concerns. Diet and Exercise - Jessica reports that she takes calcium and vitamin D. She gets regular exercise by walking. Screenings - Mammogram last done today Patient Active Problem List Diagnosis Date Noted [...] Procedure Laterality Date ??? CREATED BY INTERFACE [email or web address].(MSUROL) Procedure Date: 01/16/2008 ??? KNEE SURGERY 03/01/14 Right knee; patella surgery ??? LITHOTRIPSY ? ? PRO CYSTOURETHROSCOPY, FULGUR <.5CM LESN N/A 04/18/2017 CYSTO, FULGURATION\BLADDER LESION\W\WO BX\LESS THAN 0.5CM (WRVU 4.05) performed by Luis Michael Jr., MD at [facility] ??? SHOULDER SURGERY Right 07/2019 Outpatient Medications Marked as Taking for the 11/13/22 encounter (Office Visit) with Mil Randhawa APRN Medication Sig Dispense Refill ??? levonorgestreL (Mirena) 21 mcg/24 hours (8 yrs) 52 mg IUD 1 each by Intrauterine route Continuous (Device). Placed 05/01/16 ??? hydroCHLOROthiazide (MICROZIDE) 12.5 mg Capsule Take 1 capsule by mouth daily. 90 capsule 3 ??? ipratropium (ATROVENT) 21 mcg (0.03 %) [place], Non-Aerosol 2 sprays by Nasal route 2 [...] 20 mg Capsule, Delayed Release(E.C.) as needed. ??? ProChamber Spacer USE DIRECTED WITH INHALER [...] twice a week. 8 patch 12 ??? b complex vitamins Capsule Take 1 capsule by mouth daily. ??? MAGNESIUM ORAL Take by mouth. 2 caps QD ??? acyclovir (ZOVIRAX) 200 mg Capsule as needed. ??? galantamine (RAZADYNE) 12 mg Tablet 12 mg 2 times daily. 0 ??? memantine (NAMENDA) 5 mg Tablet 5 mg 2 times daily. 0 ??? azelastine (ASTELIN) 137 mcg (0.1 %) Aerosol, [place] instill 1 spray into each nostril twice [...] mg/3 mL nebulizer solution Allergies Allergen Reactions ??? Grass Pollen-[place], Standard [...] skin changes, or nipple discharge. Objective: BP 113/61 Pulse 65 Temp 35.8 ??C (96.5 ??F) (Temporal) Resp 18 Ht 172.7 cm (5' 8) Wt 68.1 kg (150 lb 3.2 oz) SpO2 100% BMI 22.84 kg/m?? General: Appears healthy and well nourished. [...] is present and clitoral shipman is retractable. Left labia slight hypopigmentation. Normal hair distribution Vagina: Fabens, moist, rugated. Normal discharge noted. No lesions. No cystocele, rectocele or prolapse. Cervix: No CMT. Posterior, pink and smooth. No abnormal discharge. IUD strings present on external cervical os. Uterus: Small, firm, non-tender, mobile. Adnexa: No masses or tenderness bilaterally. Ovaries non-palpable. Exam performed with pipe stem repairer present. Assessment/Plan: Normal release specialist exam. Cervical cancer screening. Pap with HPV due 09/2025 Vaginal pain: Slight Hypopigmentation of left labia minora- encouraged twice weekly estrogen cream-if persists see vulvar clinic. STI: Encouraged consistent condom use to prevent STI exposure. Nutritional/Exercise counseling provided. Encouraged a well-balanced diet- encouraged calcium (1200mg) daily and 400-800IU vitamin D for bone health, along with weight-bearing exercise. Colonoscopy: UTD per patient Dexa: Osteoporosis- Dexa 09/2022 Breast cancer screening. Recommend annual mammography starting at age 40 and CSE. I counseled Jessica on self-breast awareness. Reviewed reasons to call such as breast pain, any change in skin contouror color, masses or nipple discharge. Jessica sees her primary care provider Janet Davey APRN for age and disease specific screening not related to gynecological care Return for annual WWV in 1 year. Will send reminder letter. Mil Randhawa APRN 11/13/2022 documented in this encounter Plan of Treatment Upcoming Encounters Date Type Department Care Team (Late st Contact Info) Description 08/07/2024 3:30 PM EST Office [place] [phone] Tarik Henry MD [facility] [place] [address] 09/22/2024 7:00 AM EST Appoint[place] [address] Luis Michael Jr., MD [facility] [place] [address] 09/22/2024 8:00 AM EST Office Visit Urology at [facility] [place] [address] Luis Michael Jr., MD [facility] [place] [address] documented as of this encounter Visit Diagnoses Diagnosis Routine gynecological examination Hormone replacement therapy (postmenopausal) Need for prophylactic hormone replacement therapy (postmenopausal) IUD check up Surveillance of previously prescribed intrauterine contraceptive device Vaginal pain Unspecified symptom associated with female genital organs documented in this encounter Care Teams Chain Machine Operator Relationship Specialty Start Date End Date Janet Davey APRN PCP - General Family Medicine 07/13/20 02/10/24 documented as of this encounter
--- OUTSIDE RECORDS SUMMARY | 2024-07-20 18:28 | XMS_ITS | Encounter Summary ---
Author Organization [facility] Address [facility] [place] [address] Care Team Providers Care Revenue Coordinator Name Role Phone Janet Davey APRN Primary Care Provider [phone] Reason for Visit * Consultation (Routine) - Closed Specialty Diagnoses / Procedures Referred By Contac t Referred To Contact Pulmonology Diagnoses Hypoxia Post covid-19 condition, unspecified Monica Garcia MD [address] [place] [address] Tong Norman MD [facility] [place] [address] Referral ID Status Reason Start Date Expiration Date V isits Requested Visits Authorized [id number] Closed PCP Updated and/or Approved 05/02/2022 05/02/2023 12 12 Encounter Details Date Type Department Care Team (Late st Contact Info) Description 07/25/2022 8:00 AM EST [place] [address] Tong Norman MD [facility] [place] [address] Post-COVID chronic dyspnea (Primary Dx); Upper airway cough syndrome; Vasomotor rhinitis; Uncomplicated asthma, unspecified asthma severity, unspecified whether persistent Social History Tobacco Use [...] Sign Reading Time Taken Comments Blood Pressure 116/68 07/25/2022 7:43 AM EST Pulse 86 07/25/2022 7:43 AM EST Temperature 36.5 ??C (97.7 ??F) 07/25/2022 7:43 AM ES T Respiratory Rate - - Oxygen Saturation 100% 07/25/2022 7:43 AM EST Inhaled Oxygen Concentration - - Weight 65.8 kg (145 lb) 07/25/2022 7:43 AM EST Height 172.7 cm (5' 8) 07/25/2022 7:43 AM EST Body Mass Index 22.05 07/25/2022 7:43 AM EST documented in this encounter Patient Instructions * Patient Instructions* Tong Norman MD - 07/25/2022 8:00 AM EST Images from the original note [...] part of your regular routine. Adopted from [facility] documented in this encounter Progress Notes * Tong Norman MD - 07/25/2022 8:00 AM EST Images from the original note were not included. [facility] Section of Pulmonary and Critical Care Medicine Outpatient Consultation Date of Encounter: 07/25/2022 Referring Provider: Juan Dotson MD PCP: Janet Davey APRN Reason for Evaluation: Monica Garcia MD referred Ms. Albright to the [facility] for a consultation for an opinion regarding the evaluation and management of [id number] symptoms. I independently interviewed and examined the patient in the office and have reviewed available records. This was a [id number] office visit. He previously been seen in the pulmonary clinic by Dr. Hicks June 2022 so in the PACS clinic from which she was referred to see me. This is consequently a follow up appointment. History of Present Illness: I was able to see Ms. Albright [id number] in the pulmonary clinic today. He tells me that she has a history of asthma which caused some difficulties on and off through lifeas well as prior episodes of bronchitis and pneumonia. She was in her usual state of health until she contracted COVID-19 in November 2021. She tested positive on a home antigen kit. She reports that symptoms included significant shortness of breath and tachycardia as high as the 200s. She reports having recorded hypoxemia to saturations in the 50s. She was not hospitalized, but was treated with oxygen at home. She was also treated with Paxlovid. Since this time she reports continued difficulty with dyspnea and oxygen desaturations. She has also had issues with chronic coughing as well as postnasal drip. She uses supplemental oxygen intermittently for dyspnea as well as hypoxemia. She tells me she doesnot frequently check her oxygen saturations anymore as she is aware when she is desaturating. Additional symptoms have included chest tightness and chest pain. Work-up is included an exercise nuclear perfusion test which showed no evidence of inducible ischemia. Echocardiogram revealed normal biventricular function. Diastolic She was reportedly normal. RVSPwas estimated at 24 mmHg. Primary results prior pulmonary function test not available but reportedly with normal spirometry, normal lung volumes and normal diffusion capacity. Past 6-minute walk testdistance walked was normal and without desaturation. She reports history of Raynaud's symptoms. I reviewed extensive external records including office notes, imaging reports and laboratory test. I reviewed medical, surgical family and social [...] Procedure Laterality Date ??? CREATED BY INTERFACE E.SJosephWGuido(MSUROL) Procedure Date: 01/16/2008 ??? KNEE SURGERY 03/01/14 Right knee; patella surgery ??? LITHOTRIPSY ? ? PRO CYSTOURETHROSCOPY, FULGUR <.5CM LESN N/A 04/18/2017 CYSTO, FULGURATION\BLADDER LESION\W\WO BX\LESS THAN 0.5CM (WRVU 4.05) performed by Luis Michael Jr., MD at [facility] MAIN OR ??? SHOULDER SURGERY [...] History Narrative with 3 children. Lives in [place], [place]. 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 Eats relatively healthy with fruits, vegetables, yogurt, and milk; minimal meat. Eats 3 meals per day, does not drink tea or coffee, and occasionally drinks soda.Her youngest is 19 yrs old,in college in [place]. The other two are out of the [...] azelastine (ASTELIN) 137 mcg (0.1 %) Aerosol, [place] instill 1 spray into each nostril twice a day ??? b complex vitamins Capsule 1 capsule, Oral, DAILY ??? benzonatate (TESSALON) 100 mg, Oral, 3 TIMES DAILY PRN ??? calcium carbonate/vitamin D3 (VITAMIN D-3 ORAL) Oral, DAILY ??? cyclobenzaprine (Flexeril) 5 mg Tablet TK 1 T PO TID PRN ??? estradioL (Lia) 0.1 mg/24 hr Patch Semiweekly 1 patch, Transdermal, TWICE WEEKLY ??? galantamine (RAZADYNE) 12 mg, 2 TIMES DAILY ??? hydrocortisone (WESTCORT) 0.2 % Cream Topical (Top), PRN ??? ipratropium (ATROVENT) 21 mcg (0.03 %) [place], Non-Aerosol 2 sprays, Nasal, 2 TIMES DAILY ??? MAGNESIUM ORAL Oral, 2 caps QD ??? memantine (NAMENDA) 5 mg, 2 TIMES DAILY ??? montelukast (SINGULAIR) 10 mg, EVERY MORNING ??? multivitamin (THERAGRAN) tablet 1 tablet, DAILY ??? omeprazole (PriLOSEC) 20 mg Capsule, Delayed Release(E.C.) TAKE 1 CAPSULE BY MOUTH EVERY DAY 30MINUTES BEFORE EATING ??? ondansetron (ZOFRAN) 4 mg, Oral, EVERY [...] Sneezing and runny nose Physical Examination: BP 116/68 Pulse 86 Temp 36.5 ??C (97.7 ??F) (Temporal) Ht 172.7 cm (5' 8) Wt 65.8 kg (145 lb) SpO2 100% BMI 22.05 kg/m?? Physical Exam Constitutional: General: She is [...] clubbing. Neurological: Mental Status: She is alert. Psychiatric: Speech: Speech normal. Behavior: Behavior normal. Behavior is cooperative. Labs: Reviewed available outside laboratory data. Creatinine and BUN are normal. Normal total plasma CO2.Unable to find a recent hemoglobin. Imaging: I personally reviewed imaging from 01/08/2022. The CT scan of the chest showed normal lung parenchyma. No abnormal adenopathy. Scarring in left lower lobe. Pulmonary Function Tests: Mild ambulatory stress test today it was able to achieve a minimum oxygen saturation of 89% vigorous stair climbing. During testing Ms. Albright demonstrated dysfunctional breathing pattern with irregular tidal volumes and respiratory rate. Impression and Plan of Care: This is a middle-aged woman with persistent respiratory symptoms and hypoxemia following COVID-19 infection in November 2021. 1. Post-COVID chronic dyspnea Ms. Albright describes a relatively severe COVID infection in November 2021 and is surprising to me thatshe was not hospitalized although the circumstances of this are hardly worth exploring months down the road. Lung function tests which were not available for my review were interpreted by locker room attendant as normal. Chest imaging has been normal. Her 6-minute walk test distance was normal and without hypoxemia in the clinic at her assessment. I was able to reproduce exercise hypoxemia with vigorous stair climbing today, but observed that this was associated with a pattern of dysfunctional breathing. Dysfunctional breathing patterns have been described in many case series of patients with persistent symptoms after COVID-19 as well as in other patients with unexplained dyspnea. For patients who take irregular shallow breaths hypoxemia can be seen in this disorder and is likely due at least in part to atelectasis. Testing has not revealed any evidence of interstitial lung disease or pulmonaryvascular disease related to her COVID-19. We have discussed that for patients with a negative work-up like she has had so far dyspnea is most likely related to an imbalance between respiratory effortand processing feedback from the numerous respecters in the thorax upper airway that are responsible for providing feedback to the brain about the efficacy of respiration. Fortunately her symptoms have improved over time. Evidence extrapolated from trials of COPD would suggest that she is not at risk for adverse outcomes with mild hypoxemia. We discussed a pattern of breathing retraining as has been previously reviewed with her in the clinic. 2. Upper airway cough syndrome 3. Vasomotor rhinitis Given prominent rhinitis it is likely that her cough is related to an upper airway cough syndrome. We discussed treatment strategies and I suggested a trial of intranasal ipratropium. Intranasal ipratropium is an effective management strategy for this disorder. Is not generally associated with rebound on cessation and is more rapidly effective than intranasal steroids. There is no concern about combined use of intranasal and inhaled ipratropium given low systemic absorption and toxicity. Occasionally intranasal ipratropium is associated with overdrying. If this occurs I recommend stopping therapy for several days and resuming at a lower dose. - ipratropium (ATROVENT) 21 mcg (0.03 %) [place], Non-Aerosol; 2 sprays by Nasal route 2 times daily.Dispense: 30 mL; Refill: 5 4. Uncomplicated asthma, unspecified asthma severity, unspecified whether persistent While Ms. Albright does have a history of asthma and is not at all clear to me that any of her ongoing symptoms are related to this. Hypoxemia and asthma is extremely unlikely outside of the setting ofsevere bronchospasm. She expressed preference to reduce doses of medications that she is taking. 1 option would be to transition her to a single maintenance and reliever therapy approach for her asthma management. Recommended gradual transition by first reducing use of Symbicort to 1 puff twice daily and reserving the additional 2 extra puffs for as needed use. If she is stable after this change after a month we can further transition to as needed dosing. He was in agreement with this plan moving forward. - Symbicort 160-4.5 mcg/actuation HFA Aerosol Inhaler; Inhale 1 puff into the lungs 2 times daily. May also inhale 1 puff every 4 hours as needed (Shortness of breath, cough or wheezing (up to 4 puffs total daily)). Dispense: 1 each; Refill: 0 Follow up telehealth visit in 4 months. I spent 45 minutes in direct discussion with the patient and 30 minutes reviewing imaging, lab tests, lung function studies and external medical records. Tong Norman MD, PhD N [facility] PULMONOLOGY AT [place] [id number] Dept: [phone] Loc: [phone] documented in this encounter Plan of Treatment Upcoming Encounters Date Type Department Care Team (Late st Contact Info) Description 08/07/2024 3:30 PM EST Office Visit Orthopaedics at [place] [address] Tarik Henry MD [facility] [place] [address] 09/22/2024 7:00 AM EST Appointment Ultrasound at [place] [address] Luis Michael Jr., MD [facility] [place] [address] 09/22/2024 8:00 AM EST [place] [address] Luis Michael Jr., MD [facility] [place] [address] documented as of this encounter Visit Diagnoses Diagnosis Post-COVID chronic dyspnea- Primary Upper airway cough syndrome Cough Vasomotor rhinitis Allergic rhinitis, cause unspecified Uncomplicated asthma, unspecified asthma severity, unspecified whether persistent documented in this encounter Care Teams Revenue Coordinator Relationship Specialty Start Date End Date Janet Davey, SACHA PCP - General Family Medicine 07/13/20 02/10/24 documented as of this encounter
--- OUTSIDE RECORDS SUMMARY | 2024-07-20 18:28 | XMS_ITS | Encounter Summary ---
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 [place] [address] Referral ID Status Reason Start Date Expiration Date V isits Requested Visits Authorized [id number] Closed Evaluate and Treat 05/29/2022 05/29/2023 36 36 Reason for Visit * Consultation (Routine) - Closed Specialty Diagnoses / Procedures Referred By Contac t Referred To Contact Infectious Diseases Diagnoses Post covid-19 condition, unspecified Janet Davey APRN [address] [place] [address] [facility] Infectious Dis [address] [place] [address] Referral ID Status Reason Start Date Expiration Date V isits Requested Visits Authorized [id number] Closed Consult, Test & Treat PCP Updated and/or Approved 05/09/2022 05/09/2023 12 12 Encounter Details Date Type Department Care Team (Latest Contact Info) Description 05/29/2022 9:00 AM EDT TH Visit (TeleHealth) [place] [address] Juan Dotson MD [facility] [place] [address] Post-COVID syndrome (Primary Dx); *History of COVID-19; Post-COVID chronic cough; Post-COVID chronic dyspnea; Persistent dyspnea after COVID-19; Persistent fatigue after COVID-19 Social History Tobacco Use Types Packs/Day Years [...] documented in this encounter Progress Notes * Juan Dotson MD - 05/29/2022 9:00 AM EDT Post-Acute COVID Syndrome Clinic Note We are asked by Petar to see this 56 y.o. female for evaluation of post-acute COVID syndrome. Date of acute COVID-19: November, SARS-CoV-2 test results: Positive home antigen test 12/17/2021. Description of acute illness: From medical record: dyspnea, cough, sore throat, fatigue, chest pain. Ongoing symptoms of dyspnea, cough, fatigue. Seen by [...] constant, and she becomes exhausted after any significant amount of physical exertion. (Her stated degree of [...] very slow heart rate, but these symptoms haveimproved over the past few months. She has occasional nausea for which she takes Zofran as needed. 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 Albright is [...] been scheduled to undergo pulmonary rehabilitation and [place] but not until August; she has been [...] azelastine (ASTELIN) 137 mcg (0.1 %) Aerosol, [place] instill 1 spray into each nostril twice [...] (TeleHealth) from 05/29/2022 in Infectious Disease at [facility] Weight 68.9 kg (152 lb) Height 172.7 [...] 19. She has undergone an extensive work-up by Cardiology and Pulmonology, including normal radiographs, PFTs, echocardiogram, Holter monitor, and stress test. Fatigue (especially postexertional), and dyspnea on exertion are among the most common symptoms of long COVID. We discussed the fact that tesst of cardiac and pulmonary function are usually normal in this situation, yet patients feel that they cannot get enough air. Ms. Albright monitors her oxygen saturation and feels that low oxygen levels correspond to her sense of dyspnea. In light of the negative tests to date, I do not know the basis for her measured hypoxia. Many patients with long COVID sense that they are hypoxic but have normal oxygen saturations, and the reliability and utility of monitoring one's oxygen saturations in long COVID [...] has some element of ongoing pulmonary vascular compro mise. Perhaps this is the target of next week's planned [...] of the fact that her appointment in [place] is not till August, I took the liberty of referring her to our Pulmonary department for rehabilitation (although Ms. Albright may not be able to attend these visits because of her distance from [facility]). We reviewed the fact that physical therapy for long COVID patients has to be carefully limited so as not to result in post-exertional exhaustion. I informed Ms. Albright that there is no specific treatment for persistent post- acute COVID symptoms,but we discussed symptom management and rehabilitation. The patient seemed reassured by my comments, in particular my validation of her symptoms and my reassurance that most patients do gradually improve over time. She has already improved a good deal, so I would be optimistic about the prospects for complete recovery. I informed Ms. Albright about our research study, [facility] Post-Acute COVID Syndrome Clinic Registry. I explained the purpose of the study -- to better understand the epidemiology, treatment and prognosis of PACS -- and that it requires us to collect protected health care information. I reviewed the Verbal Consent Script with the patient. Ms. Albright had the opportunity to ask questionsand gave verbal consent to participate in this study. I spent a total of 90 minutes with the patient, including my review of internal and outside medicalrecords prior to the visit. documented in this encounter Plan of Treatment Upcoming Encounters Date Type Department Care Team (Late st Contact Info) Description 08/07/2024 3:30 PM EST Office Visit Orthopaedics at [place] [phone] Tarik Henry MD [facility] [place] [address] 09/22/2024 7:00 AM EST Appointment Ultrasound at [place] [phone] Luis Michael Jr., MD [facility] [place] [address] 09/22/2024 8:00 AM EST Office Visit Urology at [place] [phone] Luis Michael Jr., MD [facility] [place] [address] Scheduled Referrals Name Type Priority Associated Diagnoses Orde r Schedule Referral to Pulmonary Rehab Outpatient Referral Routine Post-COVID chronic cough Post-COVID chronic dyspnea Post-COVID syndrome Ordered: 05/29/2022 documented as of this encounter Procedures Procedure Name Priority Date/Time Associated Diagnosis Comments EXTERNAL LAB CBC CMP THYROID RESULTS PANEL Routine 04/19/2022 documented in this encounter Results * CBC / CMP / Thyroid External Results (04/19/2022) Sodium 141 Potassium 3.9 Chloride 105 Carbon Dioxide 30 Creatinine 0.9 Glucose 85 04/19/2022 Historical Provider MD EXTERNAL LAB CARLITA ODONNELL documented in this encounter Visit Diagnoses Diagnosis Post-COVID syndrome- Primary History of COVID-19 Post-COVID chronic cough Post-COVID chronic dyspnea Persistent dyspnea after COVID-19 Persistent fatigue after COVID-19 documented in this encounter Care Teams Quality Assurance Monitor Body Relationship Specialty Start Date End Date Janet Davey APRN PCP - General Family Medicine 07/13/20 02/10/24 documented as of this encounter
--- OUTSIDE RECORDS SUMMARY | 2024-07-20 18:28 | XMS_ITS | Encounter Summary ---
Author Organization [facility] [place] [address] Care Team Providers Care Personnel Technician Name Role Phone Janet Davey APRN Primary Care Provider [phone] Encounter Details Date Type Department Care Team (Late st Contact Info) Description 01/03/2022 Telephone Obstetrics [place] [address] Shamika Liang Social History Tobacco Use Types Packs/Day Years [...] 3:30 PM EST Office [place] [address] Tarik Henry MD [facility] [place] [address] 09/22/2024 7:00 AM EST [place] [address] Luis Michael Jr., MD [facility] [place] [address] 09/22/2024 8:00 AM EST [place] [address] Luis Michael Jr., [facility] [place] [address] documented as of this encounter Visit Diagnoses Not on filedocumented in this encounter Care Teams Personnel Technician Relationship Specialty Start Date End Date Janet Davey APRN PCP - General Family Medicine 07/13/20 02/10/24 documented as of this encounter
--- OUTSIDE RECORDS SUMMARY | 2024-07-20 18:28 | XMS_ITS | Encounter Summary ---
Author Organization [facility] [place] [address] Care Team Providers Care Plumbing And Heating Mechanic Name Role Phone Janet Davey APRN Primary Care Provider [phone] Encounter Details Date Type Department Care Team (Late st Contact Info) Description 05/03/2022 Telephone [place] [phone] Nathalie Wilson Social History Tobacco Use Types [...] 3:30 PM EST Office [place] [address] Tarik Henry MD [facility] [place] [address] 09/22/2024 7:00 AM EST Appoint[place] [phone] Luis Michael Jr., MD [facility] [place] [address] 09/22/2024 8:00 AM EST Office [place] [address] Luis Michael Jr., MD [facility] [place] [address] documented as of this encounter Visit Diagnoses Not on filedocumented in this encounter Care Teams Plumbing And Heating Mechanic Relationship Specialty Start Date End Date Janet Davey APRN PCP - General Family Medicine 07/13/20 02/10/24 documented as of this encounter
--- OUTSIDE RECORDS SUMMARY | 2024-07-20 18:28 | XMS_ITS | Encounter Summary ---
Author Organization [facility] [place] [address] Care Team Providers Care House Furnishings Supervisor Name Role Phone Janet Davey APRN Primary Care Provider [phone] Reason for Visit * Reason Comments Nephrolithiasis Encounter Details Date Type Department Care Team (Late st Contact Info) Description 04/10/2022 11:00 AM EDT Office [place] [address] Ferdinand Michael Jr., MD [facility] [place] [address] Nephrolithiasis Social History Tobacco Use Types Packs/Day [...] documented in this encounter Progress Notes * Reagan Dale MD - 04/10/2022 11:00 AM [...] 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 This reveals left-sided 6 mm inferior nonobstructing renal stone. No evidence of hydronephrosis, hydroureter, or right sidedstone. Previously had a question of left mid-pole 3mm calculus on US in 2019 which is not visualized. IMPRESSION ?? 6 mm inferior nonobstructing renal stone Otherwise within normal limits ?? Electronically signed by: Lakeisha Aiken MD, [facility] ([phone]), at 04/10/2022 Impression/Plan: Doing well, left-sided 6 [...] noted and amended. FERDINAND MICHAEL JR, MD * Ferdinand Michael Jr., MD - 04/10/2022 11:00 [...] 3:30 PM EST Office Visit Orthopaedics at [place] [phone] Tarik Henry MD [facility] [place] [address] 09/22/2024 7:00 AM EST Appointment Ultrasound at [address] Ferdinand Michael Jr., MD [facility] [address] 09/22/2024 8:00 AM EST Office Visit Urology at [place] [phone] Ferdinand Michael Jr., MD [facility] [place] [address] documented as of this encounter Visit Diagnoses Diagnosis Nephrolithiasis Calculus of kidney documented in this encounter Care Teams House Furnishings Supervisor Relationship Specialty Start Date End Date Janet Davey APRN PCP - General Family Medicine 07/13/20 02/10/24 documented as of this encounter
--- OUTSIDE RECORDS SUMMARY | 2024-07-20 18:29 | XMS_ITS | Encounter Summary ---
Author Organization [facility] [place] [address] Care Team Providers Care Sorter Upholstery Parts Name Role Phone Janet Davey SACHA Primary Care Provider [phone] Reason for Visit * Reason Comments Annual Exam Encounter Details Date Type Department Care Team (Latest Contact Info) Description 08/06/2018 3:40 PM EST Office Visit Obstetrics [place] [address] Ida Ron APRN [facility] OBSTETRICS & [place] [address] Encounter for gynecological examination without abnormal finding Social History Tobacco Use Types Packs/Day Years [...] 36.7 ??C (98.1 ??F) 08/06/2018 4:01 PM ES T Respiratory Rate - - Oxygen Saturation 100% 08/06/2018 4:01 PM EST Inhaled Oxygen Concentration - - Weight 72.3 kg (159 lb 4.8 oz) 08/06/2018 4:01 P M EST Height 172 cm (5' 7.72) 08/06/2018 4:01 PM EST Body Mass Index 24.42 08/06/2018 4:01 PM EST documented in this encounter Progress Notes * Maria Teresa Garcia LPN - 08/06/2018 3:40 PM EST Domestic Violence Screener 08/06/2018 Hit,kicked,punched or hurt in past year No Safe in current relationship Yes Partner from previous relationship making you feel unsafe No Emotionally hurt and/or controlled by someone No Unwanted sexual contact No MARIA TERESA GARCIA LPN * Ida Ron APRN - 08/06/2018 3:40 PM EST Reason for visit: Annual vallez filter operator exam ROS: P[facility]DER [facility]: Suha 2016 for menstrual control. Rare spotting. Some mood [...] Procedure Laterality Date ??? CREATED BY INTERFACE E.S.WJosephLJoseph(MSUROL) Procedure Date: 01/16/2008 ??? KNEE SURGERY 03/01/14 Right knee; patella surgery ??? LITHOTRIPSY ? ? PRO CYSTOURETHROSCOPY, FULGUR <.5CM LESN N/A 04/18/2017 CYSTO, FULGURATION\BLADDER LESION\W\WO BX\LESS THAN 0.5CM (WRVU 4.05) performed by Luis Michael Jr., MD at [facility] MAIN OR P[facility]DER [facility] History: Pt is a 52??year old G [...] new home in their town of [place], [place]. 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 Eats relatively healthy with fruits, vegetables, yogurt, and milk; minimal meat. Eats 3 meals per day, does not drink tea or coffee, and occasionally drinks soda.Her youngest is 18 yrs old, in college in [place]. The other two are out of the house. She is very involved with her sons family that has lots of psycho social issues, her sons is bipolar, back issue, they have one child together, she had 3 in a previous relationship. She has not gone for counseling. Stone Operator Screener 08/06/2018 Hit,kicked,punched or hurt in past year No Safe in current relationship Yes Partner from previous relationship making you feel unsafe No Emotionally hurt and/or controlled by someone No Unwanted sexual contact No Outpatient Medications Marked as Taking for the 08/06/18 encounter (Office Visit) with AsafIda APRN Medication Sig Dispense Refill ??? estradiol 0.1 mg/[address] 1 patch onto the skin twice a week. 8 patch 3 ??? galantamine (RAZADYNE) 12 mg Tablet 0 ??? memantine (NAMENDA) 5 mg Tablet 0 ??? valACYclovir (VALTREX) 500 mg Tablet ??? azelastine (ASTELIN) 137 mcg (0.1 %) Aerosol, [place] instill 1 spray into each nostril twice [...] 1 each by Intrauterine route once. Lot [id number] ??? hydrocortisone (WESTCORT) 0.2 % Cream Apply [...] confirms, good tone, no hemorrhoids A: Unremarkable vallez filter operator exam P: F/U one yr at which time will check FSH re: menopause documented in this encounter Plan of Treatment Upcoming Encounters Date Type Department Care Team (Late st Contact Info) Description 08/07/2024 3:30 PM EST Office Visit Orthopaedics at [address] Tarik Henry MD [facility] [place] [address] 09/22/2024 7:00 AM EST [place] [address] Luis Michael Jr., MD [facility] [place] [address] 09/22/2024 8:00 AM EST [place] [address] Luis Michael Jr., MD [facility] [place] [address] documented as of this encounter Visit Diagnoses Diagnosis Encounter for gynecological examination without abnormal finding Routine gynecological examination documented in this encounter Care Teams Sorter Upholstery Parts Relationship Specialty Start Date End Date Janet Davey APRN PCP - General Family Medicine 06/23/18 07/12/20 documented as of this encounter
--- OUTSIDE RECORDS SUMMARY | 2024-07-20 18:29 | XMS_ITS | Encounter Summary ---
Author Organization [facility] [place] [address] Care Team Providers Care Enterprise Systems Architect Name Role Phone Janet Davey APRN Primary Care Provider [phone] Encounter Details Date Type Department Care Team (Late st Contact Info) Description 07/07/2020 3:00 PM EST Office [place] [phone] Cuate Hall MD [facility] [place] [address] Osteoporosis, unspecified osteoporosis type, unspecified pathological fracture [...] 36.6 ??C (97.8 ??F) 07/07/2020 2:59 PM ES T Respiratory Rate - - Oxygen Saturation 100% 07/07/2020 2:59 PM EST Inhaled Oxygen Concentration - - Weight 69 kg (152 lb 3.2 oz) 07/07/2020 2:59 PM EST Height 172.7 cm (5' 8) 07/07/2020 2:59 PM EST Body Mass Index 23.14 07/07/2020 2:59 PM EST documented in this encounter Progress Notes * Cuate Hall MD - 07/07/2020 3:00 PM [...] her asthma but usually that is less than a week that she is on the prednisone [...] her T score is -2.7 and the totalhip her T score is -2.2. I discussed [...] to continue on the medication she is onand to stay active and then to repeat her DEXA scan in about 2 years. I told her that I thought this was a reasonable plan. When I write her I will suggest that she havea repeat DEXA scan in 2 years and [...] 20 of the 25-minute appointment was spent [id number] discussing the issues above. documented in this encounter Plan of Treatment Upcoming Encounters Date Type Department Care Team (Late st Contact Info) Description 08/07/2024 3:30 PM EST Office [place] [address] Tarik Henry MD [facility] [place] [address] 09/22/2024 7:00 AM EST Appoint[place] [phone] Luis Michael Jr., MD [facility] [place] [address] 09/22/2024 8:00 AM EST [place] [phone] Luis Michael Jr., MD [facility] [place] [address] documented as of this encounter Procedures Procedure Name Priority Date/Time Associated Diagnosis Comments PTH Routine 07/07/2020 3:51 PM EST GOLD TUBE HOLD Routine 07/07/2020 3:51 PM EST GREEN TUBE HOLD Routine 07/07/2020 3:51 PM EST LAVENDER TUBE HOLD Routine 07/07/2020 3: 51 PM EST VITAMIN D, 25-HYDROXY Routine 07/07/2020 3:51 PM EST ESTRADIOL Routine 07/07/2020 3:51 PM EST CALCIUM Routine 07/07/2020 3:51 PM EST documented in this encounter Results * Estradiol (07/07/2020 3:51 PM EST) Estradiol 135 pg/mL [facility] Comment: Reference ranges: Males: Adult: ? 11 to 43 pg/mL Females: Non- females: ?Follicular: ??12-233 pg/mL ?Ovulation: ?? 41-398 pg/mL ?Luteal: ?22-341 pg/mL ?Postmenopausal: ?? <5 - 138 pg/mL females: ?1st trimester: ??154-3243 pg/mL ?2nd trimester: ??1561-35859 pg/mL ?3rd trimester: ??8525- >27106 pg/mL Blood specimen (specimen) No Charge / Unknown 07/07/2020 3:51 PM EST 07/07/2020 4:18 PM EST Narrative Resulting Agency Comment Spec In Lab Cuate Hall MD CHEMISTRY ORDERABLES [facility] [place] [address] * Vitamin D, 25-Hydroxy (07/07/2020 3:51 PM EST) Vitamin D Total 25 OH 42 21 - 100 ng/mL [facility] Vit D Interp Sufficient [facility] Blood specimen (specimen) No Charge / Unknown 07/07/2020 3:51 PM EST 07/07/2020 4:18 PM EST Narrative Resulting Agency Comment Spec In Lab Cuate Hall MD CHEMISTRY ORDERABLES [facility] [place] [address] * Calcium (07/07/2020 3:51 PM EST) Calcium 9.1 8.5 - 10.5 mg/dL [facility] Blood specimen (specimen) No Charge / Unknown 07/07/2020 3:51 PM EST 07/07/2020 4:18 PM EST Narrative Resulting Agency Comment Spec In Lab Cuate Hall MD CHEMISTRY ORDERABLES Performing Organization Address City/[facility]/ZIP Co de Phone Number [facility] [place] [address] * PTH (07/07/2020 3:51 PM EST) Parathyroid Hormone 40 15 - 65 pg/mL [facility] Blood specimen (specimen) No Charge / Unknown 07/07/2020 3:51 PM EST 07/12/2020 8:39 AM EST Narrative Resulting Agency Comment Spec In Lab Cuate Hall MD CHEMISTRY ORDERABLES Performing Organization Address City/[facility]/ZIP Co de Phone Number [facility] [place] [address] * Lavender Tube HOLD (07/07/2020 3:51 PM EST) Lavender Hold Sample in lab. [facility] Blood specimen (specimen) No Charge / Unknown 07/07/2020 3:51 PM EST 07/07/2020 3:59 PM EST Cuate Hall MD HEMATOLOGY ORDERABLE S Performing Organization Address City/[facility]/ZIP Co de Phone Number [facility] [place] [address] * Green Tube HOLD (07/07/2020 3:51 PM EST) Green Hold Sample in lab. [facility] Blood specimen (specimen) No Charge / Unknown 07/07/2020 3:51 PM EST 07/07/2020 3:59 PM EST Cuate Hall MD CHEMISTRY ORDERABLES Performing Organization Address City/[facility] Co de Phone Number [facility] [place] [address] * Gold Tube HOLD (07/07/2020 3:51 PM EST) Gold Hold Sample in lab. [facility] Blood specimen (specimen) No Charge / Unknown 07/07/2020 3:51 PM EST 07/07/2020 3:59 PM EST Cuate Hall MD CHEMISTRY ORDERABLES Performing Organization Address City/[facility] Co de Phone Number [facility] [place] [address] documented in this encounter Visit Diagnoses Diagnosis Osteoporosis, unspecified osteoporosis type, unspecified pathological fracture presence documented in this encounter Care Teams Enterprise Systems Architect Relationship Specialty Start Date End Date Janet Davey APRN PCP - General Family Medicine 06/23/18 07/12/20 documented as of this encounter
--- OUTSIDE RECORDS SUMMARY | 2024-07-20 18:29 | XMS_ITS | Encounter Summary ---
[place] [address] Care Team Providers Care Auto Body Straightener Name Role Phone Janet Davey APRN Primary Care Provider [phone] Reason for Visit * Reason Comments Follow-up Encounter Details Date Type Department Care Team (Late st Contact Info) Description 01/09/2021 3:40 PM EDT Office Visit Obstetrics [place] [address] Lucy Shepard MD [address] [place] [address] Perimenopause Social History Tobacco Use Types Packs/Day Years [...] documented in this encounter Progress Notes * Lucy Shepard MD - 01/09/2021 3:40 PM EDT Gynecology Follow-up Office Visit Patient Name: Stacy Albright Date of : 1965 Primary Care Provider: Janet Davey APRN, Date of Visit: 01/09/2021 Referred by: Cece Graham CNM [facility] [place] [address] HPI: Stacy Albright is a 55 y.o.. female with PMH notable for osteoporosis, asthma with steroid use, migraines, and hx of nephrolithiasis who presents for follow-up evaluation of her EMB performed in the setting of darlene-vs post-menopausal bleeding, wth pt on Estradiol patch since 2013 withMirena IUD placed 04/2016 following normal EMB in [...] azelastine (ASTELIN) 137 mcg (0.1 %) Aerosol, [place] instill 1 spray into each nostril twice [...] 1 each by Intrauterine route once. Lot [id number] 05/01/16 05/01/21 PROVIDER, HISTORICAL hydrocortisone (WESTCORT) 0.2 [...] azelastine (ASTELIN) 137 mcg (0.1 %) Aerosol, [place] instill 1 spray into each nostril twice a day 0 ??? LINZESS 145 mcg Capsule 145 mg as needed. 0 ??? SUMAtriptan (IMITREX) 100 mg Tablet as needed for Migraine. 1 ??? levonorgestrel (MIRENA) 20 mcg/24 hr (5 years) IUD 1 each by Intrauterine route once. Lot [id number] ??? hydrocortisone (WESTCORT) 0.2 % Cream Apply [...] History: Procedure Laterality Date ??? CREATED BY LL[employer].Camerama.L.(Ici [place]reu[place]) Procedure Date: 01/16/2008 ??? KNEE SURGERY 03/01/14 Right knee; patella surgery ??? LITHOTRIPSY ? ? PRO CYSTOURETHROSCOPY, FULGUR <.5CM LESN N/A 04/18/2017 CYSTO, FULGURATION\BLADDER LESION\W\WO BX\LESS THAN 0.5CM (WRVU 4.05) performed by Luis Michael Jr., MD at [facility] MAIN OR ??? SHOULDER SURGERY Right 07/2019 FAMILY HISTORY family history includes Breast Cancer (age of onset: 45) in her paternal grandmother; Cancer in hermaternal aunt; Depression in her father and mother; [...] History Narrative with 3 children. Lives in [place], [place]. 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 Eats relatively healthy with fruits, vegetables, yogurt, and milk; minimal meat. Eats 3 meals per day, does not drink tea or coffee, and occasionally drinks soda.Her youngest is 19 yrs old,in college in [place]. The other two are [...] Result Value Ref Range Surgical Pathology Report [id number] Location: 5L The signing pathologist has (i) [...] DO Verified: 12/14/2020 11:13 Pathologist Performed at: -[facility] Dept. of Pathology, [place], [place] SPECIMEN(S) SUBMITTED a - endometrium, biopsy [...] (additional or fewer) per 1000 women per fiveyears of hormone use when compared with placebo: [...] given DEXA scan with T score -2.7 andpt following with endocrinology, recommend office visit with community health education coordinator to discuss stopping HRT in the setting of persistent postmenopausal bleeding. If we did discontinue HRT, reviewed that we could decrease estrogen strength to taper down. Plan as below: - pt to make appt with endocrinology to discuss stopping HRT in setting of monthly vaginal bleeding - f/u with ob gyn physician assistant in 3 mo after endocrinology --> recommendation to taper and then stop HRT Patient plan was formulated with Dr. Nunez, attending plastics and composites inspector Lucy Shepard MD PGY1 01/09/2021 * Genoveva Nunez MD - 01/09/2021 3:40 PM [...] EST Office Visit Orthopaedics at [place] [phone] Tarik Henry MD [facility] [place] [address] 09/22/2024 7:00 AM EST Appointment Ultrasound at [place] [address] Luis Michael Jr., MD [facility] [place] [address] 09/22/2024 8:00 AM EST Office Visit Urology at [address] Luis Michael Jr., MD [facility] [place] [address] documented as of this encounter Visit Diagnoses Diagnosis Perimenopause Symptomatic menopausal or female climacteric states documented in this encounter Care Teams Auto Body Straightener Relationship Specialty Start Date End Date Janet Davey APRN PCP - General Family Medicine 07/13/20 02/10/24 documented as of this encounter
--- OUTSIDE RECORDS SUMMARY | 2024-07-20 18:29 | XMS_ITS | Encounter Summary ---
Author Organization [facility] [place] [address] Care Team Providers Care Sole Seamer Name Role Phone Janet Davey APRN Primary Care Provider [phone] Encounter Details Date Type Department Care Team (Late st Contact Info) Description 06/15/2021 Telephone Obstetrics [place] [phone] Lucy Shepard MD [address] [place] [address] [place] [address] Social History Tobacco Use Types Packs/Day Years [...] have reached out to clarify with her End ocrinologist treatment plan related to her osteoporosis, and that we would like to schedule her david in-person office visit to discuss next steps. For reference, please see 01/09/2021 note, notable for: darlene-vs post-menopausal bleeding, wth pt on Estradiol patch since 2013 with Mirena IUD placed 04/2016 following normal EMB in 2015. Plan to have pt present for office visit discussed with attending physicians, Dr. Nunez and Dr. Sutton. documented in this encounter Plan of Treatment Upcoming Encounters Date Type Department Care Team (Late st Contact Info) Description 08/07/2024 3:30 PM EST Office Visit Orthopaedics at [place] [phone] Tarik Henry MD [facility] DR [place] [address] 09/22/2024 7:00 AM EST Appointment [place] [phone] Luis Michael Jr., MD [facility] [place] [address] 09/22/2024 8:00 AM EST [place] [phone] Luis Michael Jr., MD [facility] [place] [address] documented as of this encounter Visit Diagnoses Not on filedocumented in this encounter Care Teams Sole Seamer Relationship Specialty Start Date End Date Janet Davey APRN PCP - General Family Medicine 07/13/20 02/10/24 documented as of this encounter
--- OUTSIDE RECORDS SUMMARY | 2024-07-20 18:29 | XMS_ITS | Encounter Summary ---
Author Organization [facility] [place] [address] Care Team Providers Care Gas Generator Operator Name Role Phone Janet Davey SENIOR PRICING ANALYST Primary Care Provider [phone] Encounter Details Date Type Department Care Team (Latest Contact Info) Description 10/21/2020 12:56 PM EST - 10/21/2020 11:59 PM [facility] Hospital Encounter Mammography/[place] [address] Janet Davey, SACHA [address] [place], [place] [phone] Encounter for screening mammogram for breast cancer [...] Start Date End Date acyclovir (ZOVIRAX) 200 mg Capsule as needed. 01/01/2020 galantamine (RAZADYNE) 12 mg Tablet 12 mg 2 times daily. 0 05/31/2018 memantine (NAMENDA) 5 mg Tablet 5 mg 2 times daily. 0 05/19/2018 azelastine (ASTELIN) 137 mcg (0.1 %) Aerosol, [place] as needed. 0 06/17/2017 SUMAtriptan (IMITREX) 100 mg Tablet as needed for Migraine. 1 04/13/2016 hydrocortisone (WESTCORT) 0.2 % Cream Apply topically as needed. 07/25/2015 multivitamin (THERAGRAN) tablet Take 1 tablet by mouth daily. montelukast (SINGULAIR) 10 mg tablet Take 10 mg by mouth daily as needed. 12/07/2010 albuterol (ACCUNEB) 0.63 mg/3 mL nebulizer solution 08/24/2010 estradioL 0.1 mg/24 hr Patch Semiweekly APPLY 1 PATCH ONTO THE SKIN TWICE A WEEK 24 patch 3 10/23/2020 08/04/2021 ibuprofen (Advil;Motrin) 800 mg Tablet TK 1 [...] by mouth. One time per week 02/12/2022 levonorgestrel (MIRENA) 20 mcg/24 hr (5 years) IUD 1 each by Intrauterine route once. Lot [id number] 05/01/2016 05/01/2021 cetirizine (ZYRTEC) 10 mg tablet Take 10 mg by mouth daily. 02/12/2022 tacrolimus (PROTOPIC) 0.1 % ointment 1 Appl(s) Top Twice daily 08/24/2010 02/12/2022 KETOCONAZOLE (NIZORAL TOP) Apply topically. 08/24/2010 02/12/2022 documented as of this encounter Plan of Treatment Upcoming Encounters Date Type Department Care Team (Late st Contact Info) Description 08/07/2024 3:30 PM EST Office Visit [place] [address] Tarik Henry MD [facility] [place] [address] 09/22/2024 7:00 AM EST Appointment [place] [phone] Luis Michael Jr., MD [facility] [place] [address] 09/22/2024 8:00 AM EST Office Visit [place] [phone] Luis Michael Jr., MD [facility] [place] [address] documented as of this encounter Procedures Procedure Name Priority Date/Time Associated Diagnosis Comments MAMMO SCREENING CAD AND EDDIE BILATERAL Routine 10/21/2020 1:11 PM EST Encounter for screening mammogram for breast cancer documented in this encounter Results * Mammo Screening Cad and Eddie Bilateral (10/21/2020 1:11 PM EST) Anatomical Region Laterality Modality Breast Bilateral Mammography Narrative 10/24/2020 10:53 AM EST Bilateral mammography Reason for exam: routine f/u Technique: CC and MLO views were obtained of each breast using standard 2-D mammography as well as 3-D tomosynthesis. Computer aided detection was used. Comparison: This is compared with prior images. Findings: The breasts are heterogeneously dense, which may obscure small masses. There are no suspicious microcalcifications, masses, or areas of distortion. The pattern is stable. Stable benign-appearing focal asymmetries and scattered calcifications. Conclusion: No mammographic evidence of malignancy. Recommendation: Routine screening. BI-RADS Category 2: Benign findings. * ??Regular screening mammograms starting between age [...] For questions regarding this report, please contact the number below. ? Janet Davey APRN IMG MAMMO ORDERABLES documented in this encounter Visit Diagnoses Diagnosis Encounter for screening mammogram for breast cancer documented in this encounter Care Teams Gas Generator Operator Relationship Specialty Start Date End Date Janet Davey APRN PCP - General Family Medicine 07/13/20 02/10/24 documented as of this encounter
--- OUTSIDE RECORDS SUMMARY | 2024-07-20 18:29 | XMS_ITS | Encounter Summary ---
Author Organization [facility] [place] [address] Care Team Providers Care Counter Stitcher Name Role Phone Janet Davey APRN Primary Care Provider [phone] Reason for Visit * Reason Comments Nephrolithiasis Encounter Details Date Type Department Care Team (Late st Contact Info) Description 06/30/2019 4:30 PM EST Office [place] [address] Ferdinand Michael Jr., MD [facility] [place] [address] Nephrolithiasis Social History Tobacco Use Types Packs/Day [...] Notes * Ferdinand Michael Jr., MD - 06/30/2019 4:30 [...] or other complaints. She reports frozen shoulder andanticipates upcoming shoulder surgery. REVIEW OF SYSTEMS 06/30/2019 [...] renal ultrasound from today. This reveals no evidenceof hydronephrosis, hydroureter. Suggests small non obstructing 2-3mm [...] may represent a true small stone, but alsocould represent artifact, particularly in light of the absence of posterior shadowing. We discussedfurther diagnostic options including CAT scan or direct endoscopic inspection . we reviewed at length management options, including watchful waiting, shock wave lithotripsy, and ureteroscopy. We additionally discussed the relative risks, benefits, stone-free success rate, and limitations ofeach. For now she declines surgical intervention and is content to monitor. We will thus continue annual follow up with renal ultrasound, sooner prn. She has been instructed to call or return in the i nterval if new signs or symptoms of stone passage/renal colic should develop. documented in this encounter Plan of Treatment Upcoming Encounters Date Type Department Care Team (Late st Contact Info) Description 08/07/2024 3:30 PM EST Office [place] [address] Tarik Henry MD [facility] [place] [address] 09/22/2024 7:00 AM EST Appointment [place] [phone] Ferdinand Michael Jr., MD [facility] [place] [address] 09/22/2024 8:00 AM EST Office [place] [phone] Ferdinand Michael Jr., MD [facility] [place] [address] documented as of this encounter Results * US Retroperitoneal Complete (07/13/2020 8:16 AM EST) Anatomical Region Laterality Modality Abdomen Ultrasound 07/13/2020 7:58 AM EST Impressions 07/13/2020 9:03 AM EST ?? No bladder calculi. No renal calculi. No collecting system dilation. Thank you for letting us participate in the care of this patient. For questions regarding this report, please contact the number below. ?Mallika Galindo, [address] Service Electronically Signed Final Report ?? 07/13/2020 09:02 am Narrative 07/13/2020 9:03 AM EST Renal ? (Signed Final 07/13/2020 09:02 am) PATIENT INFO: ID #: ? [id number] ?: ??[birth year] (54 yrs)(F) Name: ? JESSICA ALBRIGHT ?Visit Date: 07/13/2020 07:58 am PERFORMED BY: Performed By: ? CatherineSidra vivas RDMS Attending: ?Mallika Galindo MD. Referred By: ?FERDINAND GAOMelvin OLMEDO Location: ? [place] SERVICE(S) PROVIDED: ??URETRO - Retroperitoneal Complete - [id number] ? [id number] INDICATIONS: ??? stones COMPARISON: Ultrasound: 06/30/19 RIGHT KIDNEY: Size (cm) ?L: ??10.0 Cortical Thickness: ?Normal Cortical Echogenicity: ?? Normal Hydronephrosis: ?No sonographic evidence Comment: ?No renal calculi seen. LEFT KIDNEY: Size (cm) ?L: ??10.6 Cortical Thickness: ?Normal Cortical Echogenicity: ?? Normal Hydronephrosis: ?No sonographic evidence Comment: ?No renal calculi seen. URINARY BLADDER: Pre-void (cm) ? L: ??7.6 ? AP: ??6.4 ? TV: ??8.5 Vol (ml): ?216.5 Comment: ?Partially distended, normal contour Procedure Note Mallika Galindo MD - 07/13/2020 Renal (Signed Final 07/13/2020 09:02 am) PATIENT INFO: ID #: [id number] : [birth year] (54 yrs)(F) Name: JESSICA ALBRIGHT Visit Date: 07/13/2020 07:58 am PERFORMED BY: Performed By: Sidra Alexander RDMS Attending: Mallika Galindo MD Referred By: FERDINAND MICHAEL Location: [place] SERVICE(S) PROVIDED: URETRO - Retroperitoneal Complete - [id number] INDICATIONS: ? stones COMPARISON: Ultrasound: 06/30/19 RIGHT [...] Vol (ml): 216.5 Comment: Partially distended, normal contour IMPRESSION No bladder calculi. No renal calculi. No collecting system dilation. Thank you for letting us participate in the care of this patient. For questions regarding this report, please contact the number below. Mallika Galindo, [address] Service Electronically Signed Final Report 07/13/2020 09:02 am Ferdinand Michael Jr., MD IMG US GEN ORDERAB LES documented in this encounter Visit Diagnoses Diagnosis Nephrolithiasis Calculus of kidney Nephrolithiasis Calculus of kidney documented in this encounter Care Teams Counter Stitcher Relationship Specialty Start Date End Date Janet Davey APRN PCP - General Family Medicine 06/23/18 07/12/20 documented as of this encounter
--- OUTSIDE RECORDS SUMMARY | 2024-07-20 18:29 | XMS_ITS | Encounter Summary ---
Author Organization [facility] [place] [address] Care Team Providers Care Slot Machine Repairer Name Role Phone Janet Davey CHEMICAL LABORATORY TESTER Primary Care Provider [phone] Encounter Details Date Type Department Care Team (Latest Contact Info) Description 10/20/2019 2:02 PM EST - 10/20/2019 11:59 PM [facility] Hospital Encounter Mammography/[place] [address] Janet Davey, SACHA [address], [place] [id number] Encounter for screening mammogram for breast cancer [...] Date End Date galantamine (RAZADYNE) 12 mg Tablet 12 mg 2 times daily. 0 05/31/2018 memantine (NAMENDA) 5 mg Tablet 5 mg 2 times daily. 0 05/19/2018 azelastine (ASTELIN) 137 mcg (0.1 %) Aerosol, [place] as needed. 0 06/17/2017 SUMAtriptan (IMITREX) 100 mg Tablet as needed for Migraine. 1 04/13/2016 hydrocortisone (WESTCORT) 0.2 % Cream Apply topically as needed. 07/25/2015 multivitamin (THERAGRAN) tablet Take 1 tablet by mouth daily. montelukast (SINGULAIR) 10 mg tablet Take 10 mg by mouth daily as needed. 12/07/2010 albuterol (ACCUNEB) 0.63 mg/3 mL nebulizer solution 08/24/2010 cyclobenzaprine (Flexeril) 5 mg Tablet TK 1 T PO TID PRN 09/08/2019 03/27/2023 lidocaine (LIDODERM) 5 % Adhesive Patch, Medicated APPLY 1 PATCH TO SHOULDER ONCE DAILY PRF PAIN 07/31/2019 02/12/2022 valACYclovir (Valtrex) 500 mg Tablet TAKE 2 TABLETS BY MOUTH THREE TIMES DAILY NEEDED 08/01/2019 02/12/2022 estradioL 0.1 mg/24 hr Patch Semiweekly Change 1 patch on the skin twice a week. 24 patch 3 10/22/2019 10/17/2020 LINZESS 145 mcg Capsule 145 mg as needed. 0 06/21/2017 02/12/2022 linaCLOtide (Linzess) 72 mcg Capsule Take 72 mcg by mouth. One time per week 02/12/2022 levonorgestrel (MIRENA) 20 mcg/24 hr (5 years) IUD 1 each by Intrauterine route once. Lot [id number] 05/01/2016 05/01/2021 cetirizine (ZYRTEC) 10 mg tablet Take 10 mg by mouth daily. 02/12/2022 tacrolimus (PROTOPIC) 0.1 % ointment 1 Appl(s) Top Twice daily 08/24/2010 02/12/2022 KETOCONAZOLE (NIZORAL TOP) Apply topically. 08/24/2010 02/12/2022 documented as of this encounter Plan of Treatment Upcoming Encounters Date Type Department Care Team (Late st Contact Info) Description 08/07/2024 3:30 PM EST Office [place] [address] Tarik Henry MD [facility] [place] [address] 09/22/2024 7:00 AM EST [place] [phone] Luis Michael Jr., MD [facility] [place] [address] 09/22/2024 8:00 AM EST [place] [address] Luis Mcihael Jr., MD [facility] [place] [address] documented as of this encounter Procedures Procedure Name Priority Date/Time Associated Diagnosis Comments MAMMO SCREENING CAD AND ANTHONY BILATERAL Routine 10/20/2019 2:32 PM EST Encounter for screening mammogram for breast cancer documented in this encounter Results * Mammo Screening Cad and Anthony Bilateral (10/20/2019 2:32 PM EST) Anatomical Region Laterality Modality Breast Bilateral Mammography Narrative 10/20/2019 4:19 PM EST BILATERAL MAMMOGRAPHY REASON FOR EXAM: Screening TECHNIQUE: CC and MLO views were obtained of each breast using standard 2-D mammography as well as 3-D tomosynthesis. Computer aided detection was used. This is compared with prior images. FINDINGS: ??The breasts are heterogeneously dense, which may obscure small masses. There are no suspicious microcalcifications, masses, or areas of distortion. The pattern is stable. CONCLUSION: No mammographic evidence of malignancy. RECOMMENDATION: Medical organizations agree that annual screening mammography beginning at age 40 saves the most lives. The risks of screening are negligible compared to dying from breast cancer or suffering from more aggressive treatment required when detected at a later stage. No woman is at low risk for breast cancer. Some women, because of their family history, a genetic tendency, or certain other factors, should be screened with breast MRI along with mammograms. (The number of women who fall into this category is very small). The patient and health care provider should discuss the patient history and decide if earlier screening and breast MRI are appropriate. Screening should continue as long as a woman is in good health and is expected to live 10 years or longer. Screening mammography may not detect 10-15% of breast cancers. Women should report any breast changes to a health care provider right away. A result letter has been sent to this patient by the [facility]. BIRADS CATEGORY 1: NEGATIVE Janet Davey APRN IMG MAMMO ORDERABLES documented in this encounter Visit Diagnoses Diagnosis Encounter for screening mammogram for breast cancer documented in this encounter Care Teams Slot Machine Repairer Relationship Specialty Start Date End Date Janet Davey, SACHA PCP - General Family Medicine 06/23/18 07/12/20 documented as of this encounter
--- OUTSIDE RECORDS SUMMARY | 2024-07-20 18:29 | XMS_ITS | Encounter Summary ---
Author Organization [facility] [place] [address] Care Team Providers Care Analyst Food And Beverage Name Role Phone Janet Davey APRN Primary Care Provider [phone] Encounter Details Date Type Department Care Team (Late st Contact Info) Description 01/09/2021 1:37 PM EDT - 01/09/2021 11:59 PM EDT Hospital Encounter [place] [address] Saul Graham [facility] [place] [address] Endometrial polyp Discharge Disposition: Home Social History Tobacco Use [...] azelastine (ASTELIN) 137 mcg (0.1 %) Aerosol, [place] as needed. 0 06/17/2017 SUMAtriptan (IMITREX) 100 [...] PO Q 6 H PRN 05/20/2020 02/13/20 promethazine (Phenergan) 25 mg Tablet as needed. [...] 1 each by Intrauterine route once. Lot [id number] 05/01/2016 05/01/2021 cetirizine (ZYRTEC) 10 mg tablet Take 10 mg by mouth daily. 02/12/2022 tacrolimus (PROTOPIC) 0.1 % ointment 1 Appl(s) Top Twice daily 08/24/2010 02/12/2022 KETOCONAZOLE (NIZORAL TOP) Apply topically. 08/24/2010 02/12/2022 documented as of this encounter Plan of Treatment Upcoming Encounters Date Type Department Care Team (Late st Contact Info) Description 08/07/2024 3:30 PM EST Office [place] [phone] Tarik Henry MD [facility] [place] [address] 09/22/2024 7:00 AM EST [place]oint[place] [phone] Luis Michael Jr., MD [facility] [address] 09/22/2024 8:00 AM EST Office [place] [phone] Luis Michael Jr., MD [facility] [place] [address] documented as of this encounter Procedures Procedure Name Priority Date/Time Associated Diagnosis Comments US TRANSVAGINAL NON OB Routine 01/09/2021 2:08 PM EDT Endometrial polyp documented in this encounter Results * US Transvaginal Non OB (01/09/2021 2:08 PM EDT) Anatomical Region Laterality Modality Ultrasound 01/09/2021 1:51 PM EDT Impressions 01/09/2021 2:30 [...] who have questions please contact the health skin care consultant that requested your imaging first. Electronically signed by: Genie Carrasco MD, [facility] ([phone]), at 01/09/2021 2:23 PM Thank you for letting us participate in the care of this patient. If you are a health care provider and have any questions regarding this report, please contact the number below. For patients who have questions, please contact the health skin care consultant that requested your imaging first. ? Genie Carrasco, Staff Physician Electronically Signed Final Report ?? 01/09/2021 02:30 pm Narrative 01/09/2021 2:30 PM EDT Gynecological Report ?(Signed Final 01/09/2021 02:30 pm) PATIENT INFO: ID #: ? [id number] ?: ??[birth year] (55 yrs)(F) Name: ? JESSICA GTZ ?Visit Date: 01/09/2021 01:51 pm PERFORMED BY: Performed By: ? Chetna Hedrick RDMS Attending: ?Luna GILL, Genie Dumont Referred By: ?SAUL MCDOWELLLEY Location: ? [place] SERVICE(S) PROVIDED: UTV - Transvaginal - [id number] ?[id number] U3D - ??3D rendering with interpretation - [id number] ? [id number] INDICATIONS: ? polyp TECHNIQUE/SCAN QUALITY: Technique: ?Transducer ID#: [id number] COMPARISON: Pelvic ultrasound 10/04/11; CT urogram 03/15/17. -------- HISTORY: -------- Age: ?? 55 ------- UTERUS: ------- Uterus: ? Visualized Position: ?? Anteverted Size (cm) ?L: ??7.1 ? W: ?? 4.9 ?H: ??4.0 ENDOMETRIUM: Endometrium: ?Normal where seen Thickness(mm): ?2.82 Comment: ? 3D rendering with interpretation was performed ?for IUD placement. IUD seen in normal position ?within the endometrial cavity. Limited evaluation ?of endometrium due to [...] appearance Procedure Note Genie Carrasco MD - 01/09/2021 Gynecological Report (Signed Final 01/09/2021 02:30 pm) PATIENT INFO: ID #: [id number] : [birth year] (55 yrs)(F) Name: JESSICA GTZ Visit Date: 01/09/2021 01:51 pm PERFORMED BY: Performed By: Chetna Hedrick RDMS Attending: Genie Carrasco MD Referred By: SAUL Bobo THIAGO Location: [place] SERVICE(S) PROVIDED: UTV - Transvaginal - [id number] U3D - 3D rendering with interpretation - [id number] INDICATIONS: ? polyp TECHNIQUE/SCAN QUALITY: Technique: Transducer ID#: [id number] COMPARISON: Pelvic ultrasound 10/04/11; CT urogram 03/15/17. -------- HISTORY: -------- Age: 55 ------- UTERUS: ------- Uterus: Visualized Position: Anteverted Size (cm) L: 7.1 W: 4.9 H: 4.0 ENDOMETRIUM: Endometrium: Normal where seen Thickness(mm): 2.82 Comment: 3D rendering with interpretation was performed [...] who have questions please contact the health skin care consultant that requested your imaging first. Electronically signed by: Genie Carrasco MD, [facility] ([phone]), at 01/09/2021 2:23 PM Thank you for letting us participate in the care of this patient. If you are a health care provider and have any questions regarding this report, please contact the number below. For patients who have questions, please contact the health skin care consultant that requested your imaging first. Genie Carrasco, Staff Physician Electronically Signed Final Report 01/09/2021 02:30 pm Saul Graham CNM IMG US PELVIC OR DERABLES documented in this encounter Visit Diagnoses Diagnosis Endometrial polyp Polyp of corpus uteri documented in this encounter Care Teams Analyst Food And Beverage Relationship Specialty Start Date End Date Janet Davey APRN PCP - General Family Medicine 07/13/20 02/10/24 documented as of this encounter
--- OUTSIDE RECORDS SUMMARY | 2024-07-20 18:29 | XMS_ITS | Encounter Summary ---
Author Organization [facility] [place] [address] Care Team Providers Care Gauntlet Pairer Name Role Phone Janet Davey SACHA Primary Care Provider [phone] Reason for Visit * Reason Comments Medication Refill Encounter Details Date Type Department Care Team (Late st Contact Info) Description 10/16/2020 Refill Obstetrics [place] [address] Ida Ron APRN [facility] DR OBSTETRICS [place] [address] Social History Tobacco Use Types Packs/Day Years [...] 3:30 PM EST [place] [address] Tarik Henry MD [facility] [place] [address] 09/22/2024 7:00 AM EST [place] [address] Luis Michael Jr., MD [facility] [place] [address] 09/22/2024 8:00 AM EST [place] [address] Luis Michael Jr., MD [facility] [place] [address] documented as of this encounter Visit Diagnoses Not on filedocumented in this encounter Care Teams Gauntlet Pairer Relationship Specialty Start Date End Date Janet Davey APRN PCP - General Family Medicine 07/13/20 02/10/24 documented as of this encounter
--- OUTSIDE RECORDS SUMMARY | 2024-07-20 18:29 | XMS_ITS | Encounter Summary ---
Author Organization [facility] [place] [address] Care Team Providers Care Lab Technician Name Role Phone Janet Davey APRN Primary Care Provider [phone] Encounter Details Date Type Department Care Team (Latest Contact Info) Description 08/15/2018 2:54 PM EST - 08/15/2018 11:59 PM EST Hospital [place] [address] Rose Tineo MD [facility] [place] [address] Abnormal finding on breast imaging Discharge Disposition: [...] azelastine (ASTELIN) 137 mcg (0.1 %) Aerosol, [place] as needed. 0 06/17/2017 SUMAtriptan (IMITREX) 100 mg Tablet as needed for Migraine. 1 04/13/2016 hydrocortisone (WESTCORT) 0.2 % Cream Apply topically as needed. 07/25/2015 multivitamin (THERAGRAN) tablet Take 1 tablet by mouth daily. montelukast (SINGULAIR) 10 mg tablet Take 10 mg by mouth daily as needed. 12/07/2010 albuterol (ACCUNEB) 0.63 mg/3 mL nebulizer solution 08/24/2010 estradiol 0.1 mg/[address] 1 patch onto the skin twice a week. 24 patch 3 08/07/2018 09/16/2019 valACYclovir (VALTREX) 500 mg Tablet 01/27/2018 06/30/2019 SYMBICORT 160-4.5 mcg/actuation HFA Aerosol Inhaler 0 06/18/2017 06/30/2019 LINZESS 145 mcg Capsule 145 mg as needed. 0 06/21/2017 02/12/2022 linaCLOtide (Linzess) 72 mcg Capsule Take 72 mcg by mouth. One time per week 02/12/2022 levonorgestrel (MIRENA) 20 mcg/24 hr (5 years) IUD 1 each by Intrauterine route once. Lot [id number] 05/01/2016 05/01/2021 cetirizine (ZYRTEC) 10 mg tablet Take 10 mg by mouth daily. 02/12/2022 tacrolimus (PROTOPIC) 0.1 % ointment 1 Appl(s) Top Twice daily 08/24/2010 02/12/2022 KETOCONAZOLE (NIZORAL TOP) Apply topically. 08/24/2010 02/12/2022 documented as of this encounter Plan of Treatment Upcoming Encounters Date Type Department Care Team (Late st Contact Info) Description 08/07/2024 3:30 PM EST [place] [phone] Tarik Henry MD [facility] [place] [address] 09/22/2024 7:00 AM [place] [address] Luis Michael Jr., MD [facility] [place] [address] 09/22/2024 8:00 AM EST Office Visit Urology at [facility] [place] [address] Luis Michael Jr., MD [facility] [place] [address] documented as of this encounter Procedures Procedure Name Priority Date/Time Associated Diagnosis Comments MAMMO CALL BACK DIAGNOSTIC ANTHONY WITHOUT CAD RIGHT Routine 08/15/2018 3:07 PM EST Abnormal finding on breast imaging documented in this encounter Results * Mammo Call Back Diagnostic Anthony Without Cad Right (08/15/2018 3:07 PM EST) Anatomical Region Laterality Modality Breast Right Mammography Impressions 08/15/2018 3:09 PM EST Right breast: Findings do not persist on additional diagnostic views. No suspicious findings. Recommendations: Annual screening mammography. Findings and recommendations were discussed with the patient, who concurs. Right breast: BI-RADS 1, negative. * ??The [employer] and The Society of Breast Imaging recommend annual screening beginning at age 40 for the general female population. * ??Screening should continue as long as a woman is in good health and is expected to live 10 more years or longer. * ??All women should be familiar with the known benefits, limitations, and potential harms linked to breast cancer screening. They also should know how their breasts normally look and feel and report any breast changes to a health care provider right away. * ??Some women, because of their family history, a genetic tendency, or certain other factors, should be screened with MRIs along with mammograms. (The number of women who fall into this category is very small.) The patient and health care provider should discuss the patient history and decide if earlier screening and breast MRI are appropriate. Narrative 08/15/2018 3:09 PM EST EXAMINATION: MAMMO CALL BACK DIAGNOSTIC ANTHONY WITHOUT CAD RIGHT CLINICAL HISTORY: abnormal finding. 53-year-old female, returns for additional diagnostic imaging of the right breast, from screening views. TECHNIQUE: Right breast spot CC, spot MLO, true lateral 2-D/3-D imaging. Tomographic imaging was obtained, CAD software was utilized. Digital mammography, direct image capture. COMPARISON: 08/06/2018. Multiple additional comparisons. FINDINGS: Density, heterogeneously dense, limiting mammographic sensitivity. The upper and outer right breast area of concern for focal asymmetry, does not persist on additional diagnostic views. Normal parenchymal elements. No suspicious calcifications, mass, distortion. Rose Tineo MD IMG MAMMO ORDERABLES documented in this encounter Visit Diagnoses Diagnosis Abnormal finding on breast imaging Other (abnormal) findings on radiological examination of breast documented in this encounter Care Teams Lab Technician Relationship Specialty Start Date End Date Janet Davey, SACHA PCP - General Family Medicine 06/23/18 07/12/20 documented as of this encounter
--- OUTSIDE RECORDS SUMMARY | 2024-07-20 18:29 | XMS_ITS | Encounter Summary ---
Author Organization [facility] [place] [address] Care Team Providers Care Pastry Assistant Name Role Phone Janet Davey APRN Primary Care Provider [phone] Reason for Visit * Reason Comments Follow-up Encounter Details Date Type Department Care Team (Late st Contact Info) Description 12/09/2020 4:00 PM EDT Office Visit Obstetrics [place] [address] [facility] [place] [address] Abnormal vaginal Pap smear Social History Tobacco Use Types Packs/Day Years [...] 36.9 ??C (98.4 ??F) 12/09/2020 3:51 PM ED T Respiratory Rate 16 12/09/2020 3:51 PM EDT Oxygen Saturation 100% 12/09/2020 3:51 PM EDT Inhaled Oxygen Concentration - - Weight 71.8 kg (158 lb 4.8 oz) 12/09/2020 3:51 P M EDT Height 172.7 cm (5' 8) 12/09/2020 3:51 PM EDT Body Mass Index 24.07 12/09/2020 3:51 PM EDT documented in this encounter Progress Notes * Cece Graham CNM - 12/09/2020 4:00 PM [...] were prepped with sterile betadine x3. A pipette was placed through the cervix without difficulty. The uterus sounded to 7 cm. A biopsy was obtained in a 360 degree fashion. The tissue was placed into formalin for pathologic specimen and labeled with her name and date of and sent to pathology for assessment. The patient tolerated the procedure well. The estimated blood loss was minimal. Drafter Detail present for procedure. A/P: Stacy is a [...] 3:30 PM EST Office [place] [address] Tarik Henry MD [facility] [place] [address] 09/22/2024 7:00 AM EST [place] [address] Luis Michael Jr., MD [facility] [place] [address] 09/22/2024 8:00 AM EST Office [place] [address] Luis Michael Jr., MD [facility] [place] [address] documented as of this encounter Procedures Procedure Name Priority Date/Time Associated Diagnosis Comments SPECIMEN TO PATHOLOGY Routine 12/09/2020 4:26 PM EDT Abnormal vaginal Pap smear SURGICAL PATHOLOGY REPORT Routine 12/09/2020 4:00 PM EDT documented in this encounter Results * Specimen to Pathology (12/09/2020 4:26 PM EDT) AP Specimen 12/09/2020 4:26 PM EDT 12/09/2020 4:26 PM EDT Narrative [facility] - 12/09/2020 4:26 PM EDT Specimen requisition ordered. ??Separate Pathology report to follow Cece Graham CNM PATHOLOGY/CYTOLO GY ORDERABLES [facility] [place] [address] * Surgical Pathology Report (12/09/2020 4:00 PM EDT) Final Diagnosis [id number] ? Location: 5L The signing pathologist has (i) examined the relevant preparation(s) for the specimen(s) and (ii) rendered or confirmed the diagnosis(es). . ?Surgical Pathology DIAGNOSIS Endometrial biopsy: ?? 1. Fragments of benign endometrium intermixed with ?blood clot and cervical mucus. ?? 2. Endometrial tissue fragments with features suggestive ?of an endometrial polyp. ?? 3. No evidence of hyperplasia or endometritis. Electronically signed by: ?Sydney Hawk DO Verified: ??12/14/2020 11:13 ??Pathologist Performed at: ??-[facility] Dept. of Pathology, [place], [place] SPECIMEN(S) SUBMITTED a - endometrium, biopsy CLINICAL INFORMATION TIGIST Pap SPECIMEN PROCESSING A - Labeled/Fixative : Patient demographics, formalin. Quantity/Size: ??Fragments, collectively 1.0 x 0.6 cm. Tissue Description: Red-brown hemorrhagic tissue and abundant globular mucus. Sections/Process ing: Submitted en toto ??in 1 cassette labeled A1. ??MLL 12/14/2020 11:13 AM EDT [facility] ENDOMETRIAL STRUCTURE / Unknown 12/09/2020 4:00 PM EDT 12/09/2020 4:00 PM EDT Cece Graham CNM PATHOLOGY/CYTOLO GY ORDERABLES [facility] [place] [address] documented in this encounter Visit Diagnoses Diagnosis Abnormal vaginal Pap smear Abnormal glandular Papanicolaou smear of vagina documented in this encounter Care Teams Pastry Assistant Relationship Specialty Start Date End Date Janet Davey APRN PCP - General Family Medicine 07/13/20 02/10/24 documented as of this encounter
--- OUTSIDE RECORDS SUMMARY | 2024-07-20 18:29 | XMS_ITS | Encounter Summary ---
Author Organization [facility] [place] [address] Care Team Providers Care Public Health Service Officer Name Role Phone Janet Davey APRN Primary Care Provider [phone] Encounter Details Date Type Department Care Team (Late st Contact Info) Description 03/30/2019 [place] [address] Luis Michael Jr., MD [facility] [address] Social History Tobacco Use Types Packs/Day Years [...] 3:30 PM EST Office [place] [address] Tarik Henry MD [facility] [place] [address] 09/22/2024 7:00 AM EST [place] [address] Luis Michael Jr., MD [facility] [place] [address] 09/22/2024 8:00 AM EST [place] [address] Luis Michael Jr., MD [facility] [place] [address] documented as of this encounter Visit Diagnoses Not on filedocumented in this encounter Care Teams Public Health Service Officer Relationship Specialty Start Date End Date Janet Davey APRN PCP - General Family Medicine 06/23/18 07/12/20 documented as of this encounter
--- OUTSIDE RECORDS SUMMARY | 2024-07-20 18:29 | XMS_ITS | Encounter Summary ---
Author Organization [facility] Address [facility] [place] [address] Care Team Providers Care Information Clerk Brokerage Name Role Phone Janet Davey APRN Primary Care Provider [phone] Encounter Details Date Type Department Care Team (Latest Contact Info) Description 07/13/2020 7:55 AM EST - 07/13/2020 11:59 PM [facility] [place] [address] Ferdinand Michael Jr., MD [facility] [address] Nephrolithiasis Discharge Disposition: Home Social History Tobacco [...] azelastine (ASTELIN) 137 mcg (0.1 %) Aerosol, [place] as needed. 0 06/17/2017 SUMAtriptan (IMITREX) 100 mg Tablet as needed for Migraine. 1 04/13/2016 hydrocortisone (WESTCORT) 0.2 % Cream Apply topically as needed. 07/25/2015 multivitamin (THERAGRAN) tablet Take 1 tablet by mouth daily. montelukast (SINGULAIR) 10 mg tablet Take 10 mg by mouth daily as needed. 12/07/2010 albuterol (ACCUNEB) 0.63 mg/3 mL nebulizer solution 08/24/2010 ibuprofen (Advil;Motrin) 800 mg Tablet TK 1 [...] 1 each by Intrauterine route once. Lot [id number] 05/01/2016 05/01/2021 cetirizine (ZYRTEC) 10 mg tablet Take 10 mg by mouth daily. 02/12/2022 tacrolimus (PROTOPIC) 0.1 % ointment 1 Appl(s) Top Twice daily 08/24/2010 02/12/2022 KETOCONAZOLE (NIZORAL TOP) Apply topically. 08/24/2010 02/12/2022 documented as of this encounter Plan of Treatment Upcoming Encounters Date Type Department Care Team (Late st Contact Info) Description 08/07/2024 3:30 PM EST Office Visit Orthopaedics at [place] [phone] Tarik Henry MD [facility] DR [place] [address] 09/22/2024 7:00 AM EST Appointment Ultrasound at [place] [phone] Ferdinand Michael Jr., MD [facility] [address] 09/22/2024 8:00 AM EST Office Visit Urology at [place] [phone] Ferdinand Michael Jr., MD [facility] [place] [address] documented as of this encounter Procedures Procedure Name Priority Date/Time Associated Diagnosis Comments US RETROPERITONEAL COMPLETE Routine 07/13/2020 8:16 AM EST Nephrolithiasis documented in this encounter Results * [...] please contact the number below. ?Mallika Galindo, Tile Helper Electronically Signed Final Report ?? 07/13/2020 09:02 am Narrative 07/13/2020 9:03 AM EST Renal ? (Signed Final 07/13/2020 09:02 am) PATIENT INFO: ID #: ? [id number] ?: ??[birth year] (54 yrs)(F) Name: ? JESSICA ALBRIGHT ?Visit Date: 07/13/2020 07:58 am PERFORMED BY: Performed By: ? Sidra Alexander RDMS Attending: ?Mateo GILL, Malilka Ribera Referred By: ?FERDINAND MICHAEL Location: ? [facility] SERVICE(S) PROVIDED: ??URETRO - Retroperitoneal Complete - [id number] ? [id number] INDICATIONS: ??? stones COMPARISON: Ultrasound: 06/30/19 RIGHT [...] 07/13/2020 09:02 am) PATIENT INFO: ID #: [id number] : [birth year] (54 yrs)(F) Name: JESSICA ALBRIGHT Visit Date: 07/13/2020 07:58 am PERFORMED BY: Performed By: Sidra Alexander RDMS Attending: Mallika Galindo MD Referred By: FERDINAND MICHAEL JR Location: [facility] SERVICE(S) PROVIDED: URETRO - Retroperitoneal Complete - [id number] INDICATIONS: ? stones COMPARISON: Ultrasound: 06/30/19 RIGHT [...] please contact the number below. Mallika Galindo, Tile Helper Electronically Signed Final Report 07/13/2020 09:02 am Ferdinand Michael Jr., MD IMG US GEN ORDERAB LES documented in this encounter Visit Diagnoses Diagnosis Nephrolithiasis Calculus of kidney documented in this encounter Care Teams Information Clerk Brokerage Relationship Specialty Start Date End Date Janet DaveySACHA PCP - General Family Medicine 07/13/20 02/10/24 documented as of this encounter
--- OUTSIDE RECORDS SUMMARY | 2024-07-20 18:29 | XMS_ITS | Encounter Summary ---
[place] [address] Care Team Providers Care Carriage Rider Name Role Phone Janet Davey APRN Primary Care Provider [phone] Reason for Referral * Diagnostic Test (Routine) - Closed Specialty Diagnoses / Procedures Referred By Contac t Referred To Contact Radiology Diagnoses Encounter for screening mammogram for breast cancer Procedures Mammo Screening Cad and Anthony Bilateral Janet Davey APRN [address] [place] [address] [place] [address] Referral ID Status Reason Start Date Expiration Date V isits Requested Visits Authorized [id number] Closed Specialty Service Requested 09/12/2021 03/12/2023 1 1 Reason for Visit * Diagnostic Test (Routine) - Closed Specialty Diagnoses / Procedures Referred By Alberta mendosa Referred To Contact Radiology Diagnoses Encounter for screening mammogram for breast cancer Procedures Mammo Screening Cad and Anthony Bilateral Janet Davey APRN [address] [place] [address] [facility] [place] [address] Referral ID Status Reason Start Date Expiration Date V isits Requested Visits Authorized [id number] Closed Specialty Service Requested 09/12/2021 03/12/2023 1 1 Encounter Details Date Type Department Care Team (Latest Contact Info) Description 11/02/2021 2:04 PM EST - 11/02/2021 11:59 PM EST Hospital Encounter Mammography[facility]A [facility] [place] [address] Janet Davey, PAINTER DECORATOR [address] [place] [address] Encounter for screening mammogram for breast cancer [...] azelastine (ASTELIN) 137 mcg (0.1 %) Aerosol, [place] as needed. 0 06/17/2017 SUMAtriptan (IMITREX) 100 [...] 3:30 PM EST Office [place] [address] Tarik Henry MD [facility] DR [place] [address] 09/22/2024 7:00 AM EST [place] [address] Luis Michael Jr., MD [facility] [place] [address] 09/22/2024 8:00 AM EST [place] [address] Luis Michael Jr., MD [facility] [place] [address] documented as of this encounter Procedures Procedure Name Priority Date/Time Associated Diagnosis Comments MAMMO SCREENING CAD AND ANTHONY BILATERAL Routine 11/02/2021 2:23 PM EST Encounter for screening mammogram for breast cancer documented in this encounter Results * Mammo Screening Cad and Anthony Bilateral (11/02/2021 2:23 PM EST) Anatomical Region Laterality Modality Breast Bilateral Mammography Impressions 11/03/2021 8:58 AM EST Recommend directed ultrasound to confirm a cyst in the left upper inner quadrant 11:00 radian 7 cm from the nipple measuring 0.6 cm. BI-RADS Category 0: Incomplete-Need Additional Imaging Evaluation and/or Prior Mammograms for Comparison Our facility will contact the patient to arrange this follow-up imaging. Thank you for letting us participate in the care of this patient. ??If you are a health care provider and have any questions regarding this report, please contact the number below. ??For patients who have questions please contact the health disabilities caregiver that requested your imaging first. ? Electronically signed by: Genoveva Cordoba [facility] ([phone]), at 11/03/2021 8:58 AM Narrative 11/03/2021 8:58 AM EST EXAMINATION: MAMMO SCREENING CAD AND ANTHONY BILATERAL CLINICAL HISTORY: routine f/u 2.21 TECHNIQUE: CC and MLO views were obtained of each breast. 2-D and 3- D tomosynthesis images were obtained. Computer aided detection was used. COMPARISON: This study was compared with prior images. FINDINGS: The breasts are heterogeneously dense, which may obscure small masses. There is a circumscribed dense 0.7 cm mass in the left upper inner quadrant posterior third 11:00 radian 7 cm from the nipple for which directed ultrasound is advised. This is in an area of a faint fluctuating density but appears denser compared with prior studies. Incidental note is made of benign breast arterial calcification in the left lower outer quadrant superimposed on long-term stability of amorphous calcifications consistent with a benign process. The right breast is normal. Janet Davey APRN IMG MAMMO ORDERABLES documented in this encounter Visit Diagnoses Diagnosis Encounter for screening mammogram for breast cancer documented in this encounter Care Teams Carriage Rider Relationship Specialty Start Date End Date Janet Davey APRN PCP - General Family Medicine 07/13/20 02/10/24 documented as of this encounter
--- OUTSIDE RECORDS SUMMARY | 2024-07-20 18:29 | XMS_ITS | Encounter Summary ---
Author Organization [facility] [place] [address] Care Team Providers Care Therapeutic Dietitian Name Role Phone Janet Davey APRN Primary Care Provider [phone] Encounter Details Date Type Department Care Team (Late st Contact Info) Description 06/12/2021 Telephone Obstetrics [place] [address] Sydney Silva RN Social History Tobacco Use Types Packs/Day [...] call to discuss her visit with her chief sustainability officer. Stacy was last seen on 01/09/[address] Lucy Shepard where they dicussed recommendation to stop HRT. When Stacy went to her chief sustainability officer on 06/09 they recommended reducing dose of HRT per patient. Per chart review of this visit the endocrine team recommended this dose reduction instead of discontinuationto help her bones. Patient asking for this medication change and follow up on need for Mirena IUDthat is currently in place. Patient requests plan via [employer] message. Will route this encounter to her provider team. * Telephone Encounter - Sydney Silva RN - 06/12/2021 1:54 PM EDT ----- Message from Jeanette Lopez sent at 06/12/2021 1:32 PM EDT ----- Regarding: Next Step Caller's name: Stacy Albright Call back #: [phone] Patient's provider/team: Dr Kumar Reason for call: Please refer to Dr Kumar's note 01/09/21 she has gone to the Osteoporosis Doctor and would like to know what is the next step? documented in this encounter Plan of Treatment Upcoming Encounters Date Type Department Care Team (Late st Contact Info) Description 08/07/2024 3:30 PM EST Office Visit Orthopaedics at [place] [phone] Tarik Henry MD [facility] [place] [address] 09/22/2024 7:00 AM EST Appointment Ultrasound at [place] [phone] Luis Michael Jr., MD [facility] [place] [address] 09/22/2024 8:00 AM EST Office Visit Urology at [place] [phone] Luis Michael Jr., MD [facility] [place] [address] documented as of this encounter Visit Diagnoses Not on filedocumented in this encounter Care Teams Therapeutic Dietitian Relationship Specialty Start Date End Date Janet Davey APRN PCP - General Family Medicine 07/13/20 02/10/24 documented as of this encounter
--- OUTSIDE RECORDS SUMMARY | 2024-07-20 18:29 | XMS_ITS | Encounter Summary ---
Author Organization [facility] [place] [address] Care Team Providers Care Nut Sheller Name Role Phone Janet Davey APRN Primary Care Provider [phone] Encounter Details Date Type Department Care Team (Latest Contact Info) Description 08/06/2018 3:10 PM EST - 08/06/2018 11:59 PM [facility] Hospital [place] [address] Janet Davey, SACHA [address] [place], [place] [id number] Visit for screening mammogram Discharge Disposition: Home [...] azelastine (ASTELIN) 137 mcg (0.1 %) Aerosol, [place] as needed. 0 06/17/2017 SUMAtriptan (IMITREX) 100 [...] 1 each by Intrauterine route once. Lot [id number] 05/01/2016 05/01/2021 cetirizine (ZYRTEC) 10 mg tablet Take 10 mg by mouth daily. 02/12/2022 tacrolimus (PROTOPIC) 0.1 % ointment 1 Appl(s) Top Twice daily 08/24/2010 02/12/2022 KETOCONAZOLE (NIZORAL TOP) Apply topically. 08/24/2010 02/12/2022 documented as of this encounter Plan of Treatment Upcoming Encounters Date Type Department Care Team (Late st Contact Info) Description 08/07/2024 3:30 PM EST Office [place] [phone] Tarik Henry MD [facility] [place] [address] 09/22/2024 7:00 AM EST [place] [address] Luis Michael Jr., MD [facility] [place] [address] 09/22/2024 8:00 AM EST Office Visit Urology at [facility] [place] [address] Luis Michael Jr., MD [facility] [place] [address] documented as of this encounter Procedures Procedure Name Priority Date/Time Associated Diagnosis Comments MAMMO SCREENING CAD AND ANTHONY BILATERAL Routine 08/06/2018 3:24 PM EST Visit for screening mammogram documented in this encounter Results * Mammo Screening Cad and Anthony Bilateral (08/06/2018 3:24 PM EST) Anatomical Region Laterality Modality Breast Bilateral Mammography Impressions 08/07/2018 9:01 AM EST BIRADS CATEGORY 0: INCOMPLETE MAMMOGRAM. Needs additional imaging evaluation. RECOMMENDATION: The patient will be contacted regarding the additional imaging. Narrative 08/07/2018 9:01 AM EST REASON FOR EXAM: Screening TECHNIQUE: CC and MLO views were obtained of the Bilateral breast.Computer aided detection was used. 3D tomosynthesis images were obtained in addition to 2D images. FINDINGS: Breast density:The breasts are heterogeneously dense, which may obscure small masses. Left breast. ??There are no suspicious microcalcifications, masses, or areas of distortion. No changes compared to prior studies. The Right breast is abnormal and additional imaging is required. There is a ??1.2 cm asymmetric density in the upper outer quadrant of the RIGHT breast, 6 cm from the nipple Janet Davey APRN IMG MAMMO ORDERABLES documented in this encounter Visit Diagnoses Diagnosis Visit for screening mammogram Other screening mammogram documented in this encounter Care Teams Nut Sheller Relationship Specialty Start Date End Date Janet Davey APRN PCP - General Family Medicine 06/23/18 07/12/20 documented as of this encounter
--- OUTSIDE RECORDS SUMMARY | 2024-07-20 18:29 | XMS_ITS | Encounter Summary ---
Author Organization [facility] [place] [address] Care Team Providers Care Culture Manager Name Role Phone Janet Davey Isa GONCALVES Primary Care Provider Reason for Visit * Reason Comments Medication Refill Encounter Details Date Type Department Care Team (Late st Contact Info) Description 09/05/2021 Refill Obstetrics [place] [address] Genie Carrion APRN [address] [place] [address] OB[place] [address] Social History Tobacco Use Types Packs/Day Years [...] 3:30 PM EST Office [place] [address] Tarik Henry MD [facility] DR ORTHOPAEDIC [place] [address] 09/22/2024 7:00 AM EST Appointment [place] [address] Luis Michael Jr., MD [facility] [place] [address] 09/22/2024 8:00 AM EST Office [place] [address] Luis Michael Jr., MD [facility] [place] [address] documented as of this encounter Visit Diagnoses Not on filedocumented in this encounter Care Teams Culture Manager Relationship Specialty Start Date End Date Janet Davey APRN PCP - General Family Medicine 07/13/20 02/10/24 documented as of this encounter
--- OUTSIDE RECORDS SUMMARY | 2024-07-20 18:29 | XMS_ITS | Encounter Summary ---
Author Organization [facility] [place] [address] Care Team Providers Care Turf Manager Name Role Phone Janet Davey APRN Primary Care Provider [phone] Reason for Visit * Consultation (Routine) - Specialty Diagnoses / Procedures Referred By Alberta mendosa Referred To Contact Dermatology Diagnoses Follicular disorder, unspecified Folliculitis presumed Fungal Procedures Consult Janet Davey APRN [address] [place] [address] Chang Patel MD [address] [place] [address], [facility] [place] [address] Referral ID Status Reason Start Date Expiration Date V isits Requested Visits Authorized [id number] Consult, Test & Treat PCP Updated and/or Approved 12/28/2019 06/29/2020 6 6 Encounter Details Date Type Department Care Team (Late st Contact Info) Description 01/04/2020 10:30 AM EDT TH Visit (TeleHealth) Dermatology at [address] [phone] Chang Patel MD [address] [place] [address], [facility] DERMATOLOGY [place], [place] [phone] Keratosis pilaris Social History Tobacco Use Types Packs/Day Years [...] as of this encounter Progress Notes * Chang Patel MD - 01/04/2020 10:30 AM EDT Problem: 1. New patient, initial visit, for itchy rash on the legs 2. telehealth telephone visit Stacy is a 54-year-old woman who is seen in consultation today by Janet Davey for an itchy rash on her legs. This has been treated with selenium sulfide shampoo and itraconazole 100 mg a day for a short 2-week course without significant improvement. She states this [...] and treat him for with some success. 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 Patient has history of atopy with pasthistory of eczema, asthma, environmental allergies. 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
--- OUTSIDE RECORDS SUMMARY | 2024-07-20 18:29 | XMS_ITS | Encounter Summary ---
Author Organization Count Includes [facility] Address [facility] [place] [address] Care Team Providers Care Warehouse Puller Name Role Phone Janet Davey APRN Primary Care Provider [phone] Reason for Referral * Diagnostic Test (Routine) - Closed Specialty Diagnoses / Procedures Referred By Contac t Referred To Contact Radiology Diagnoses Osteoporosis, unspecified osteoporosis type, unspecified pathological fracture presence Procedures DXA Central Spine, Hip, and/or Whole Body (Generic) Cuate Hall MD [facility] [place] [address] [facility] Rad Xray [address] [place] [address] [place] [address] Referral ID Status Reason Start Date Expiration Date V isits Requested Visits Authorized [id number] Closed Specialty Service Requested 03/14/2020 09/14/2021 1 1 Encounter Details Date Type Department Care Team (Late st Contact Info) Description 03/14/2020 Orders Only Endocrinology at [place] [place] [address] Cuate Hall MD [facility] [place] [address] Osteoporosis, unspecified osteoporosis type, unspecified pathological fracture [...] 3:30 PM EST Office Visit Orthopaedics at [place] [phone] Tarik Henry MD [facility] [place] [address] 09/22/2024 7:00 AM EST Appointment Ultrasound at [place] [phone] Luis Michael Jr., MD [facility] [place] [address] 09/22/2024 8:00 AM EST Office Visit Urology at [place] [phone] Luis Michael Jr., MD [facility] [place] [address] documented as of this encounter Results * DXA Central Spine, Hip, and/or Whole Body (Generic) (07/07/2020 1:56 PM EST) Anatomical Region Laterality Modality C-spine, Hip N/A Other Impressions 07/07/2020 5:05 PM EST The small change of BMD is insignificant and represents normal variation since it is within or less than the calculated precision error or Least Significant Change. The measurements fulfill the WHO classification for osteoporosis and there is no significant [...] BMD measurements and plots are available in Collax under the imaging tab. Paper copies will be sent to providers without E-LaComunity access. If you have received this report without the data sheet and do not have access to Collax, please contact Radiology Storage Manager at [phone] Saturday thru Saturday 8am-4pm. Thank you for letting us participate in the care of this patient. For questions regarding this report, please contact the number below. ? Electronically signed by: Simin Preston MD, [facility] ([phone]), at 07/07/2020 5:05 PM Narrative 07/07/2020 5:05 PM EST EXAMINATION: DXA CENTRAL SPINE, HIP, AND/OR WHOLE BODY (GENERIC) CLINICAL HISTORY: osteoporosis, ,entered by ordering service TECHNIQUE: Scans were acquired at the lumbar spine, and left hip. FINDINGS: Femoral neck BMD: 0.549 g/cm2 Lowest T-score at the diagnostic region of interest: T-score: -2.7, TENZIN: Femoral neck, WHO diagnosis: Osteoporosis. ......... Comparison......... Previous scan:2017 Total spine: Compared to the previous, -3 % change. Total hip: Compared to the previous scan, -1 % change. Procedure Note Simin Preston MD - 07/07/2020 EXAMINATION: DXA CENTRAL SPINE, HIP, AND/OR WHOLE BODY (GENERIC) CLINICAL HISTORY: osteoporosis, ,entered by ordering service TECHNIQUE: Scans were acquired at the lumbar spine, and left hip. FINDINGS: Femoral neck BMD: 0.549 g/cm2 Lowest T-score at the diagnostic region of interest: T-score: -2.7, TENZIN: Femoral neck, WHO diagnosis: Osteoporosis. ......... Comparison......... Previous scan:2017 Total spine: Compared to the previous, -3 % change. Total hip: Compared to the previous scan, -1 % change. IMPRESSION The small change of BMD is insignificant and represents normal variationsince it is within or less than the calculated precision error or LeastSignificant Change. The measurements fulfill the WHO classification for osteoporosis and thereis no significant change. Estimating Fracture Risk: The [...] BMD measurements and plots are available in E-LaComunityunder the imaging tab. Paper copies will be sent to providers without Collax access.If you have received this report without the data sheet and do not haveaccess to E-LaComunity, please contact Radiology Storage Manager at [phone] Saturday thruFriday 8am-4pm. Thank you for letting us participate in the care of this patient. Forquestions regarding this report, please contact the number below. Cuate Hall MD IMG DEXA ORDERABLES documented in this encounter Visit Diagnoses Diagnosis Osteoporosis, unspecified osteoporosis type, unspecified pathological fracture presence Osteoporosis, unspecified osteoporosis type, unspecified pathological fracture presence documented in this encounter Care Teams Warehouse Puller Relationship Specialty Start Date End Date Janet Davey APRN PCP - General Family Medicine 06/23/18 07/12/20 documented as of this encounter
--- OUTSIDE RECORDS SUMMARY | 2024-07-20 18:29 | XMS_ITS | Encounter Summary ---
Author Organization [facility] [place] [address] Care Team Providers Care Service Person Name Role Phone Janet Davey SACHA Primary Care Provider [phone] Reason for Visit * Reason Comments Annual Exam Encounter Details Date Type Department Care Team (Latest Contact Info) Description 10/20/2019 3:20 PM EST Office Visit Obstetrics [place] [address] Ida Ron DURALUMIN METALWORKER [facility] OBSTETRICS & [place] [address] Menopause; Encounter for gynecological examination without abnormal finding [...] 36.9 ??C (98.4 ??F) 10/20/2019 3:13 PM ES T Respiratory Rate - - Oxygen Saturation 100% 10/20/2019 3:13 PM EST Inhaled Oxygen Concentration - - Weight 70.1 kg (154 lb 9.6 oz) 10/20/2019 3:13 P M EST Height 172 cm (5' 7.72) 10/20/2019 3:13 PM EST Body Mass Index 23.7 10/20/2019 3:13 PM EST documented in this encounter Progress Notes * Sarah Nieto - 10/20/2019 3:20 PM EST S: Pt is a 54 yo female who presents for her annual physical. Pt has a Mirena in place to help with spotting and uses estradiol patches to help maintain bone health. Her Mirena was placed in 2017. She denies any pain or discharge. She is still spotting, she had one week where the spotting was happening daily. However, that has since subsided and she is back to her baseline where she spotsa few times a week. 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 Does not have to wear a liner. Spotting smaller than size of berny. Hx of PID as a teenager and [...] by Luis Michael Jr., MD at [facility] MAIN OR ??? SHOULDER SURGERY [...] on phone: None Gets together: None Attends adventist service: None Active member of club or organization: None Attends meetings of clubs or organizations: None Relationship status: None ??? Intimate partner violence Fear of current or ex partner: None Emotionally abused: None Physically abused: None Forced sexual activity: None Other Topics Concern ??? None Social History Narrative with 3 children. Lives in [place], [place]. 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 Eats relatively healthy with fruits, vegetables, [...] 1 PATCH ONTO THE SKIN TWICE A WEEK24 patch 3 ??? galantamine (RAZADYNE) 12 mg Tablet 0 ??? memantine (NAMENDA) 5 mg Tablet 0 ??? azelastine (ASTELIN) 137 mcg (0.1 %) Aerosol, [employer] instill 1 spray into each nostril twice a day 0 ??? LINZESS 145 mcg Capsule 145 mg every other day. 0 ??? linaclotide (LINZESS) 72 mcg Capsule Take 72 mcg by mouth every other day. ??? SUMAtriptan (IMITREX) 100 mg Tablet as needed for Migraine. 1 ??? levonorgestrel (MIRENA) 20 mcg/24 hr (5 years) IUD 1 each by Intrauterine route once. Lot [id number] ??? hydrocortisone (WESTCORT) 0.2 % Cream Apply [...] Position: Sitting) Pulse 65 Temp 36.9 ??C (98.4 ??F) (Temporal) Ht 172 cm (5' 7.72) Wt [...] Mirena? 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 CREATED BY [email or web address] Cathy([employer]) Procedure Date: 01/16/2008 ??? KNEE SURGERY 03/01/14 Right knee; patella surgery ??? LITHOTRIPSY ? ? PRO CYSTOURETHROSCOPY, FULGUR <.5CM LESN N/A 04/18/2017 CYSTO, FULGURATION\BLADDER LESION\W\WO BX\LESS THAN 0.5CM (WRVU 4.05) performed by Luis Michael Jr., MD at [facility] MAIN OR ??? SHOULDER SURGERY Right 07/2019 BRIDGE CONTRACTOR History: Pt is a 54??year old G 4 P 3 female. Last pap 07/2017 NILM; hx abnormal pap at age 15 that required cryotherapy. Hx PID at age 15; no other hx of STD's/STI's. Last mammogram: 07/2018 neg., today. DEXA scan done in??06/27/17?femoral neck with noted T-score of -2.7. She sees??Dr Hall.Pt reports taking calcium and Vitamin D supplements; [...] file Gets together: Not on file Attends adventist service: Not on file Active member of [...] History Narrative with 3 children. Lives in [place], [place]. 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 Eats relatively healthy with fruits, vegetables, [...] relationship. She has not gone for counseling. 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 cyclobenzaprine (Flexeril) 5 mg Tablet TK 1 T PO TID PRN ??? lidocaine (LIDODERM) 5 % Adhesive Patch, Medicated APPLY 1 PATCH TO SHOULDER ONCE DAILY PRF PAIN ??? [START ON 10/22/2019] estradioL 0.1 mg/24 hr Patch Semiweekly Change 1 patch on the skin twice aweek. 24 patch 3 ??? [DISCONTINUED] estradiol 0.1 mg/24 hr Patch Semiweekly APPLY 1 PATCH ONTO THE SKIN TWICE A WEEK24 patch 3 ??? galantamine (RAZADYNE) 12 mg Tablet 0 ??? memantine (NAMENDA) 5 mg Tablet 0 ??? azelastine (ASTELIN) 137 mcg (0.1 %) Aerosol, [place] instill 1 spray into each nostril twice a day 0 ??? LINZESS 145 mcg Capsule 145 mg every other day. 0 ??? linaclotide (LINZESS) 72 mcg Capsule Take 72 mcg by mouth every other day. ??? SUMAtriptan (IMITREX) 100 mg Tablet as needed for Migraine. 1 ??? levonorgestrel (MIRENA) 20 mcg/24 hr (5 years) IUD 1 each by Intrauterine route once. Lot [id number] ??? hydrocortisone (WESTCORT) 0.2 % Cream Apply [...] Position: Sitting) Pulse 65 Temp 36.9 ??C (98.4 ??F) (Temporal) Ht 172 cm (5' 7.72) Wt [...] confirms, good tone, no hemorrhoids A: Unremarkable local company flatbed truck driver exam Probably menopausal spotting with Mirena and estradiol P: FSH pending documented in this encounter Plan of Treatment Upcoming Encounters Date Type Department Care Team (Late st Contact Info) Description 08/07/2024 3:30 PM EST Office [place] [address] Tarik Henry MD [facility] [place] [address] 09/22/2024 7:00 AM EST Appointment Ultrasound at [place] [phone] Luis Michael Jr., MD [facility] [place] [address] 09/22/2024 8:00 AM EST Office Visit Urology at [place] [phone] Luis Michael Jr., MD [facility] [place] [address] documented as of this encounter Procedures Procedure Name Priority Date/Time Associated Diagnosis Comments HC VENIPUNCTURE Routine 10/20/2019 4:16 PM EST Menopause documented in this encounter Results * Follicle Stimulating Hormone (10/20/2019 4:16 PM EST) Follicle Stimulating Hormone 40.8 mlU/ML [facility] Comment: Reference Ranges Male: ? 1.5-12.4 mIU/mL Female ?? Follicular: ?3.5-12.5 mIU/mL ?? Ovulation: ? 4.7-21.5 mIU/mL ?? Luteal: ?1.7-7.7 mIU/mL ?? Postmenopausal: ?25.8-134.8 mIU/mL Blood specimen (specimen) 10/20/2019 4:16 PM EST 10/20/2019 4:29 PM EST Narrative Resulting Agency Comment Spec In Lab Ida L Asaf DURALUMIN METALWORKER CHEMISTRY ORDERABLES [facility] [place] [address] documented in this encounter Visit Diagnoses Diagnosis Menopause Asymptomatic postmenopausal status (age-related) (natural) Encounter for gynecological examination without abnormal finding Routine gynecological examination documented in this encounter Care Teams Service Person Relationship Specialty Start Date End Date Janet Davey APRN PCP - General Family Medicine 06/23/18 07/12/20 documented as of this encounter
--- OUTSIDE RECORDS SUMMARY | 2024-07-20 18:29 | XMS_ITS | Encounter Summary ---
Author Organization [facility] Victor [place] [address] Care Team Providers Care Model And Pattern Supervisor Name Role Phone Janet Davey APRN Primary Care Provider [phone] Reason for Visit * Reason Comments Annual Exam Encounter Details Date Type Department Care Team (Late st Contact Info) Description 10/21/2020 2:20 PM EST Office Visit Obstetrics [place] [address] [facility] [place] [address] Hormone replacement therapy (HRT); Encounter for gynecological examination with abnormal finding; Cervical cancer screening Social History Tobacco Use Types Packs/Day Years [...] 36.9 ??C (98.4 ??F) 10/21/2020 2:22 PM ES T Respiratory Rate 20 10/21/2020 2:22 PM EST Oxygen Saturation 100% 10/21/2020 2:22 PM EST Inhaled Oxygen Concentration - - Weight 70.7 kg (155 lb 14.4 oz) 10/21/2020 2:22 PM EST Height 172.7 cm (5' 8) 10/21/2020 2:22 PM EST Body Mass Index 23.7 10/21/2020 2:22 PM EST documented in this encounter Progress Notes * Saul Graham CNM - 10/21/2020 2:20 PM EST Reason for Visit: Stacy Albright is a 55 y.o. postmenopausal female who presents for annual ORACLE ARCHITECT exam. Menopausal at age: unknown HRT: Estradiol [...] azelastine (ASTELIN) 137 mcg (0.1 %) Aerosol, [employer] instill 1 spray into each nostril twice a day 0 ??? linaclotide (LINZESS) 72 mcg Capsule Take 72 mcg by mouth. One time per week ??? SUMAtriptan (IMITREX) 100 mg Tablet as needed for Migraine. 1 ??? levonorgestrel (MIRENA) 20 mcg/24 hr (5 years) IUD 1 each by Intrauterine route once. Lot [id number] ??? hydrocortisone (WESTCORT) 0.2 % Cream Apply [...] Procedure Laterality Date ??? CREATED BY INTERFACE [email or web address]) Procedure Date: 01/16/2008 ??? KNEE SURGERY 03/01/14 Right knee; patella surgery ??? LITHOTRIPSY ? ? PRO CYSTOURETHROSCOPY, FULGUR <.5CM LESN N/A 04/18/2017 CYSTO, FULGURATION\BLADDER LESION\W\WO BX\LESS THAN 0.5CM (WRVU 4.05) performed by Luis Michael Jr., MD at [facility] MAIN OR ??? SHOULDER SURGERY Right [...] History Narrative with 3 children. Lives in [place], [place]. 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 Eats relatively healthy with fruits, vegetables, yogurt, and milk; minimal meat. Eats 3 meals per day, does not drink tea or coffee, and occasionally drinks soda.Her youngest is 19 yrs old,in college in [place]. The other two are [...] 20 Ht 172.7 cm (5' 8) Wt 70.7 kg (155 lb 14.4 oz) SpO2 100% BMI [...] Plan: Healthy 55 y.o. woman here for supervisor treating and pumping exam ??? Pap smeartoday ??? Hormone replacement therapy- the majority of visit discussing HRT therapy. Plan to keep Mirena in while on estrogen. Discussed risks of estrogen therapy below. At this time Stacy prefers to stayon Estradol 0.1mg/24hr and Mirena. We also discussed [...] CNM documented in this encounter Miscellaneous Notes * Addendum Note - Saul Graham CNM - 10/21/2020 2:20 PM ESTAddended by: SAUL GRAHMA on: 10/24/2020 04:44 PM Modules accepted: Orders, Level of Service documented in this encounter Plan of Treatment Upcoming Encounters Date Type Department Care Team (Late st Contact Info) Description 08/07/2024 3:30 PM EST Office Visit [place] [address] Tarik Henry MD [facility] [place] [address] 09/22/2024 7:00 AM EST Appointment Ultrasound at [place] [phone] Luis Michael Jr., MD [facility] [address] 09/22/2024 8:00 AM EST Office Visit Urology at [place] [phone] Luis Michael Jr., MD [facility] [place] [address] documented as of this encounter Procedures Procedure Name Priority Date/Time Associated Diagnosis Comments CYTOPATHOLOGY GYNECOLOGICAL Routine 10/24/2020 4:44 PM EST Cervical cancer screening HPV Routine 10/21/2020 2:20 PM EST ORACLE ARCHITECT CYTOLOGY INTERPRETATION Routine 10/21/2020 2:20 PM EST ORACLE ARCHITECT CYTOLOGY FINAL REPORT Routine 10/21/2020 2:20 PM EST documented in this encounter Results * Cytopathology Gynecological (10/24/2020 4:44 PM EST) AP Specimen 10/24/2020 4:44 PM EST 10/24/2020 4:44 PM EST Narrative [facility] - 10/24/2020 4:44 PM EST Specimen requisition ordered. ??Separate Pathology report to follow Saul Graham CNM PATHOLOGY/CYTOLO GY ORDERABLES [facility] [place] [address] * ORACLE ARCHITECT Cytology Interpretation (10/21/2020 2:20 PM EST) Manager System Cytology Interpretation NILM Other [facility] Comment:Manager System Cytology Final R eport Manager System Cytology Comment Present [facility] Endocervical Component Present [facility] AP Specimen 10/21/2020 2:20 PM EST 11/05/2020 1:35 PM EST Saul Graham CNM PATHOLOGY/CYTOLO GY ORDERABLES [place] [address] * Manager System Cytology Final Report (10/21/2020 2:20 PM EST) Manager System Cytology Final Report [id number] ? Location: 5L The signing pathologist has (i) examined the relevant preparation(s) for the specimen(s) and (ii) rendered or confirmed the diagnosis(es). . ? Manager System Final DIAGNOSIS Other Negative for squamous intraepithelial lesion (TIGIST). See discussion. For consensus guidelines for the management of cervical cancer screening test results, please see: ?? http://www.asccp.o rg . Electronically signed by: ??Saad GILL, Alvino Rush Verified: ??11/05/2020 ?Pathologist Performed at: ??-[facility] Dept. of Pathology, [place], [place] DISCUSSION Endometrial cells present in a [...] intended to detect low risk HPV types. Matrix Electronic Measuringas HPV test Specimen: HPV Testing - Cytology Liquid Based Prep The Lisa brayan ? HPV test was validated, performed and results reported through the Laboratory for Clinical Genomics and Advanced Technology (CGAT) at [facility]. ? - David Avilez, PhD, HCLD, Director-[facility] STATEMENT OF ADEQUACY Specimen submitted is satisfactory. Endocervical component present. CLINICAL INFORMATION HPV Option: ?Concurrent HPV and Pap CT/NG Option: ?No Preparation: ? Liquid based Pap Specimen Source: ? Cervical/Endocervi beena LMP: ? n/a Hysterectomy: ?No : ?No : ?No I.U.D.: ?Yes Pelvic Radiation: ?No Hist Abnl Pap/Biopsy: ?No Prior ORACLE ARCHITECT Therapy: ? No Hist of HPV Vaccine: ? No . CLINICAL INFORMATION ICD Diagnosis: ? Z12.4 Encounter for screening for malignant neoplasm of cervix Clinical Data, Significant Therapy and Clinical Impression ?? : ?_ This Pap Test has been evaluated with the assistance of the The Movie StudioPrep Pap Test Imaging System. Note: The Pap test is a screening test for cervical cancer with an inherent false-negative rate dependent upon several variables. For further information please contact the [facility] Laboratory. Reference: Devika LEON. [employer] Food Runners of Pap Smear Results. In: Sukumar BS, Roni CALLEJAS, ed. The Pap Smear. [place]: Jonah, 2002: 71-77. [facility] 10/21/2020 2:20 PM EST Saul H Gladys CNM PATHOLOGY/CYTOLO GY ORDERABLES Performing Organization Address City/[facility]/ZIP Co de Phone Number [facility] [place] [address] * HPV (10/21/2020 2:20 PM EST) HPV16 NEGATIVE NEGATIVE [facility] HPV 18 NEGATIVE NEGATIVE [facility] HPV Other HR NEGATIVE NEGATIVE [facility] HPV Interpretation See Comment [facility] Comment: NEGATIVE for high-risk HPV [...] Narrative Resulting Agency Comment Spec In Lab Saul Graham CNM PATHOLOGY/CYTOLO GY ORDERABLES Performing Organization Address [facility] Co de Phone Number [facility] [place] [address] documented in this encounter Visit Diagnoses Diagnosis Hormone replacement therapy (HRT) Encounter for gynecological examination with abnormal finding Routine gynecological examination Cervical cancer screening Screening for malignant neoplasm of the cervix documented in this encounter Care Teams Model And Pattern Supervisor Relationship Specialty Start Date End Date Janet Davey, SACHA PCP - General Family Medicine 07/13/20 02/10/24 documented as of this encounter
--- OUTSIDE RECORDS SUMMARY | 2024-07-20 18:29 | XMS_ITS | Encounter Summary ---
Author Organization [facility] [place] [address] Care Team Providers Care Ditto Machine Operator Name Role Phone Janet Davey APRN Primary Care Provider [phone] Encounter Details Date Type Department Care Team (Late st Contact Info) Description 07/12/2020 Orders [place] [phone] Cuate Hall MD [facility] [address] Osteoporosis, unspecified osteoporosis type, unspecified pathological fracture [...] 3:30 PM EST Office [place] [phone] Tarik Henry MD [facility] [place] [address] 09/22/2024 7:00 AM EST Appoint[place] [address] Luis Michael Jr., MD [facility] [place] [address] 09/22/2024 8:00 AM EST [place] [address] Luis Michael Jr., MD [facility] [place] [address] documented as of this encounter Visit Diagnoses Diagnosis Osteoporosis, unspecified osteoporosis type, unspecified pathological fracture presence documented in this encounter Care Teams Ditto Machine Operator Relationship Specialty Start Date End Date Janet Davey APRN PCP - General Family Medicine 06/23/18 07/12/20 documented as of this encounter
--- OUTSIDE RECORDS SUMMARY | 2024-07-20 18:29 | XMS_ITS | Encounter Summary ---
Author Organization [facility] [place] [address] Care Team Providers Care Nurse Recruiter Name Role Phone Janet Davey APRN Primary Care Provider Encounter Details Date Type Department Care Team (Late st Contact Info) Description 12/15/2020 Orders Only Obstetrics [place] [phone] Saul Graham CNM [facility] DR OBSTETRICS [place] [address] Endometrial polyp Social History Tobacco Use Types Packs/Day Years [...] 3:30 PM EST Office [place] [phone] Tarik Henry MD [facility] [place] [address] 09/22/2024 7:00 AM EST [place] [address] Luis Michael Jr., MD [facility] [place] [address] 09/22/2024 8:00 AM EST [place] [address] Luis Michael Jr., MD [facility] [place] [address] documented as of this encounter Results * [...] have questions please contact the health career law clerk that requested your imaging first. Thank you for letting us participate in the care of this patient. If you are a health care provider and have any questions regarding this report, please contact the number below. For patients who have questions, please contact the health career law clerk that requested your imaging first. ? Genie Carrasco, Staff Physician Electronically Signed Final Report ?? 01/09/2021 02:30 pm Narrative 01/09/2021 2:30 PM EDT Gynecological Report ?(Signed Final 01/09/2021 02:30 pm) PATIENT INFO: ID #: ? [id number] ?: ??[birth year] (55 yrs)(F) Name: ? JESSICAKATIE GTZ ?Visit Date: 01/09/2021 01:51 pm PERFORMED BY: Performed By: ? Chetna Hedrick RDMS Attending: ?Luna GILL, Genie Dumont Referred By: ?SAUL MCDOWELLLEY Location: ? [place] SERVICE(S) PROVIDED: UTV - Transvaginal - [id number] ?[id number] U3D - ??3D rendering with interpretation - [id number] ? [id number] INDICATIONS: ? polyp TECHNIQUE/SCAN QUALITY: Technique: ?Transducer [...] 01/09/2021 02:30 pm) PATIENT INFO: ID #: [id number] : [birth year] (55 yrs)(F) Name: JESSICA GTZ Visit Date: 01/09/2021 01:51 pm PERFORMED BY: Performed By: Chetna Hedrick RDMS Attending: Genie Carrasco MD Referred By: SAUL GRAHAM Location: [place] SERVICE(S) PROVIDED: UTV - Transvaginal - [id number] U3D - 3D rendering with interpretation - [id number] INDICATIONS: ? polyp TECHNIQUE/SCAN QUALITY: Technique: Transducer [...] have questions please contact the health career law clerk that requested your imaging first. Thank you for letting us participate in the care of this patient. If you are a health care provider and have any questions regarding this report, please contact the number below. For patients who have questions, please contact the health career law clerk that requested your imaging first. Genie Carrasco, Staff Physician Electronically Signed Final Report 01/09/2021 02:30 pm Saul Graham CNM IMG US PELVIC OR DERABLES documented in this encounter Visit Diagnoses Diagnosis Endometrial polyp Polyp of corpus uteri Endometrial polyp Polyp of corpus uteri documented in this encounter Care Teams Nurse Recruiter Relationship Specialty Start Date End Date Janet Davey APRN PCP - General Family Medicine 07/13/20 02/10/24 documented as of this encounter
--- OUTSIDE RECORDS SUMMARY | 2024-07-20 18:29 | XMS_ITS | Encounter Summary ---
Author Organization [facility] Victor [place] [address] Care Team Providers Care Molded Candles Wicker Name Role Phone Janet Davey SACHA Primary Care Provider [phone] Reason for Visit * Reason Comments Medication Refill Encounter Details Date Type Department Care Team (Late st Contact Info) Description 09/16/2019 Refill Obstetrics [place] [address] Ida Ron APRN [facility] DR OBSTETRICS & [place] [address] Social History Tobacco Use Types Packs/Day Years [...] 3:30 PM EST Office [place] [phone] Tarik Henry MD [facility] ORTHOPAEDIC [place] [address] 09/22/2024 7:00 AM EST [place] [address] Luis Michael Jr., MD [facility] [place] [address] 09/22/2024 8:00 AM EST [place] [address] Luis Michael Jr., MD [facility] [place] [address] documented as of this encounter Visit Diagnoses Not on filedocumented in this encounter Care Teams Molded Candles Wicker Relationship Specialty Start Date End Date Janet Davey APRN PCP - General Family Medicine 06/23/18 07/12/20 documented as of this encounter
--- OUTSIDE RECORDS SUMMARY | 2024-07-20 18:29 | XMS_ITS | Encounter Summary ---
Author Organization [facility] [place] [address] Care Team Providers Care Customer Agent Name Role Phone Janet Davey APRN Primary Care Provider [phone] Encounter Details Date Type Department Care Team (Late st Contact Info) Description 09/25/2021 Orders [place] [phone] Maile Hinojosa MD [facility] [address] Hypercalciuria Social History Tobacco Use Types Packs/Day Years [...] 3:30 PM EST Office [place] [phone] Tarik Henry MD [facility] [place] [address] 09/22/2024 7:00 AM EST [place] [address] Luis Michael Jr., MD [facility] [place] [address] 09/22/2024 8:00 AM EST [place] [address] Luis Michael Jr., MD [facility] [place] [address] documented as of this encounter Visit Diagnoses Diagnosis Hypercalciuria Unspecified disorders of calcium metabolism documented in this encounter Care Teams Customer Agent Relationship Specialty Start Date End Date Janet Davey APRN PCP - General Family Medicine 07/13/20 02/10/24 documented as of this encounter
--- OUTSIDE RECORDS SUMMARY | 2024-07-20 18:29 | XMS_ITS | Encounter Summary ---
Author Organization [facility] [place] [address] Care Team Providers Care Gauge Checker Name Role Phone Janet Davey SACHA Primary Care Provider [phone] Encounter Details Date Type Department Care Team (Late st Contact Info) Description 11/07/2020 Telephone Obstetrics [place] [phone] Cece Graham CNM [facility] DR OBSTET[place] [address] Social History Tobacco Use Types Packs/Day Years [...] encounter Miscellaneous Notes * Telephone Encounter - Cece Graham CNM - 11/07/2020 12:42 PM EDT Spoke with Stacy on the phone about her pap results TIGIST- recommend endomtrial bx which she agrees to. Will plan to schedule. Cece Graham CNM documented in this encounter Plan of Treatment Upcoming Encounters Date Type Department Care Team (Late st Contact Info) Description 08/07/2024 3:30 PM EST Office Visit Orthopaedics at [place] [phone] Tarik Henry MD [facility] [place] [address] 09/22/2024 7:00 AM EST Appoint[place] [address] Lius Michael Jr., MD [facility] [place] [address] 09/22/2024 8:00 AM EST Office Visit Urology at [place] [phone] Luis Michael Jr., MD [facility] [place] [address] documented as of this encounter Visit Diagnoses Not on filedocumented in this encounter Care Teams Gauge Checker Relationship Specialty Start Date End Date Janet Davey APRN PCP - General Family Medicine 07/13/20 02/10/24 documented as of this encounter
--- OUTSIDE RECORDS SUMMARY | 2024-07-20 18:29 | XMS_ITS | Encounter Summary ---
Author Organization [facility] [place] [address] Care Team Providers Care Measurement Psychologist Name Role Phone EdJanet mendez Isa GONCALVES Primary Care Provider [phone] Encounter Details Date Type Department Care Team (Late st Contact Info) Description 08/17/2021 Telephone [place] [phone] Romy Rich RN Social History Tobacco Use Types Packs/Day [...] Miscellaneous Notes * Telephone Encounter - Romy Rich RN - 08/17/2021 9:44 AM EST Provider unable to read lab result copy received, requesting new, clear copy be faxed. Electronically routed request to [phone] documented in this encounter Plan of Treatment Upcoming Encounters Date Type Department Care Team (Late st Contact Info) Description 08/07/2024 3:30 PM EST Office [place] [phone] [facility] [place] [address] 09/22/2024 7:00 AM EST Appointment Ultrasound at [place] [phone] Luis Michael Jr., MD [facility] [place] [address] 09/22/2024 8:00 AM EST Office Visit Urology at [place] [phone] Luis Michael Jr., MD [facility] [address] documented as of this encounter Visit Diagnoses Not on filedocumented in this encounter Care Teams Measurement Psychologist Relationship Specialty Start Date End Date Janet Davey APRN PCP - General Family Medicine 07/13/20 02/10/24 documented as of this encounter
--- OUTSIDE RECORDS SUMMARY | 2024-07-20 18:29 | XMS_ITS | Encounter Summary ---
Author Organization [facility] [place] [address] Care Team Providers Care Computer Designer Name Role Phone Janet Davey APRN Primary Care Provider [phone] Reason for Visit * Reason Comments Nephrolithiasis Encounter Details Date Type Department Care Team (Latest Contact Info) Description 07/13/2020 9:00 AM EST [place] [address] Ferdinand Pennington Jr., MD [facility] [place] [address] Nephrolithiasis (Primary Dx) Social History Tobacco Use Types [...] documented in this encounter Progress Notes * Deirdre Carrera 07/13/2020 9:00 AM EST UROLOGY OUTPATIENT FOLLOW-UP [...] resected and 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 She last saw Dr. Pennington in 06/2019, at that time RBUS showed [...] from today. This reveals no evidenceof hydronephrosis, hydroureter, no stones. Impression/Plan: Doing well, no evidence of stones on today's RBUS. We will plan to see her in 1.5 years with an ultrasound at that time per patient preference. She has been instructed to call or return in the interval if new signs or symptoms of stone passage/renal colic should develop. This patient was seen in conjunction with Dr. Pennington, Urology Attending. Deirdre Carrera MD Urology, PGY-3 STAFF ADDENDUM: I saw and examined Jessica Gtz with Dr. Carrera , have independently reviewed her u/s, and concur with history, exam, impression, and plan as noted and amended. FERDINAND PENNINGTON JR, MD * Ferdinand Pennington Jr., MD - 07/13/2020 9:00 AM EST I saw and examined Jessica Gtz with Dr. Carrera and have independently reviewed her imaging studies. I agree with history, exam, impression, and plan as noted. Briefly, this very pleasant 54-year-old woman returns for urologic follow-up regarding history of recurrent nephrolithiasis. Her last intervention for stone was in July 2010. Although question ispreviously been raised of small lower pole stones on ultrasound, CTs had confirmed no new or residual stones. Ultrasound today again reveals no evidence of hydronephrosis, hydroureter, or stone. She denies interval any urinary symptoms or witnessed stone passage. She wishes to continue urologic surveillance follow-up, but is willing to extend the interval to every 18 months at this point. I askedher to call or return in the interval if new problems should arise. documented in this encounter Plan of Treatment Upcoming Encounters Date Type Department Care Team (Late st Contact Info) Description 08/07/2024 3:30 PM EST Office [place] [address] Tarik Henry MD [facility] [place] [address] 09/22/2024 7:00 AM [place] [address] Ferdinand Pennington Jr., MD [facility] [place] [address] 09/22/2024 8:00 AM EST [place] [phone] Ferdinand Pennington Jr., MD [facility] [place] [address] documented as of this encounter Results * [...] who have questions, please contact the health customer care representative that requested your imaging first. ??Lakeisha Aiken, [facility] & Dept Chair - Rad Electronically Signed Final Report ?? 04/10/2022 10:54 am Narrative 04/10/2022 10:55 AM EDT Renal ? (Signed Final 04/10/2022 10:54 am) PATIENT INFO: ID #: ? [id number] ?: ??[birth year] (56 yrs)(F) Name: ? JESSICA WOODON ?Visit Date: 04/10/2022 10:06 am PERFORMED BY: Performed By: ? Cece Prajapati RDMS Attending: ?Nelli GILL, Lakeisha Beltran Referred By: ?FERDINAND PENNINGTON JR Location: ? [place] SERVICE(S) PROVIDED: URETRO - Retroperitoneal Complete - [id number] ? [id number] INDICATIONS: kidney stone surveillance. no stones on [...] 04/10/2022 10:54 am) PATIENT INFO: ID #: [id number] : 61 (56 yrs)(F) Name: JESSICA GTZ Visit Date: 04/10/2022 10:06 am PERFORMED BY: Performed By: Cece Prajapati RDMS Attending: Lakeisha Aiken MD Referred By: FERDINAND PENNINGTON Location: [facility] SERVICE(S) PROVIDED: URETRO - Retroperitoneal Complete - [id number] INDICATIONS: kidney stone surveillance. no stones on [...] limits Electronically signed by: Lakeisha Aiken MD, [facility] ([phone]), at 04/10/2022 10:46 AM Thank you for letting us participate in the care of this patient. If you are a health care provider and have any questions regarding this report, please contact the number above. For patients who have questions, please contact the health customer care representative that requested your imaging first. Lakeisha Aiken, [facility] & Dept Chair - Rad Electronically Signed Final Report 04/10/2022 10:54 am Ferdinand Pennington Jr., MD IMG US GEN ORDERAB LES documented in this encounter Visit Diagnoses Diagnosis Nephrolithiasis- Primary Calculus of kidney Nephrolithiasis Calculus of kidney documented in this encounter Care Teams Computer Designer Relationship Specialty Start Date End Date Edvanessa Janet Moss APRN PCP - General Family Medicine 07/13/20 02/10/24 documented as of this encounter
--- OUTSIDE RECORDS SUMMARY | 2024-07-20 18:29 | XMS_ITS | Encounter Summary ---
Author Organization [facility] [place] [address] Care Team Providers Care Informatics Educator Name Role Phone Janet Davey APRN Primary Care Provider [phone] Reason for Visit * Reason Onset Date Comments Medication Refill 07/10/2018 Encounter Details Date Type Department Care Team (Late st Contact Info) Description 07/10/2018 Refill Obstetrics [place] [phone] Angi Cisneros Social History Tobacco Use Types Packs/Day Years [...] 3:30 PM EST Office [place] [phone] Tarik Henry MD [facility] DR [place] [address] 09/22/2024 7:00 AM EST Appointment [place] [address] Luis Michael Jr., MD [facility] [place] [address] 09/22/2024 8:00 AM EST Office [place] [phone] Luis Michael Jr., MD [facility] [place] [address] documented as of this encounter Visit Diagnoses Not on filedocumented in this encounter Care Teams Informatics Educator Relationship Specialty Start Date End Date Janet Davey APRN PCP - General Family Medicine 06/23/18 07/12/20 documented as of this encounter
--- OUTSIDE RECORDS SUMMARY | 2024-07-20 18:29 | XMS_ITS | Encounter Summary ---
[place] [address] Care Team Providers Care Logistics Engineer Name Role Phone Janet Davey APRN Primary Care Provider [phone] Reason for Visit * Reason Comments Annual Exam Encounter Details Date Type Department Care Team (Late st Contact Info) Description 11/02/2021 3:00 PM EST Office Visit Obstetrics [place] [address] Lucy Shepard MD [address] [place] [address] Encounter for well woman exam with routine gynecological exam; Hot flashes, menopausal Social History Tobacco Use [...] 36.2 ??C (97.1 ??F) 11/02/2021 2:39 PM ES T Respiratory Rate 18 11/02/2021 2:39 PM EST Oxygen Saturation 100% 11/02/2021 2:39 PM EST Inhaled Oxygen Concentration - - Weight 69.9 kg (154 lb) 11/02/2021 2:39 PM EST Height - - Body Mass Index 23.42 08/04/2021 3:00 PM EST documented in this encounter Progress Notes * Lucy Shepard MD - 11/02/2021 3:00 PM EST Patient Name: Stacy Albright Date of : 1965 Primary Care Provider: Janet Davey APRN, Referred by: Janet Davey, SACHA [address] [place] [address] Chief Complaint Patient presents with ??? Annual [...] following change in Estradiol patch from 0.1 to0.025 mg in 08/04/2021. States it was very [...] patch dose. She states she is not sleepingwell because she is now waking up with hot flashes, which she also gets throughout day, and is worried about the summer. States it is significantly affecting her quality of life. 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 States partner unable to due to health concerns. HRT: As above, estradiol patch w/ Mirena for endometrial protection STI Hx Denies history of STDs. Pap hx: Last pap on 10/21/2020: NILM, HPV negative History of GARMENT TURNER pathology: none HRT - Cancer Screening Denies [...] patch on the skin twice a week. 08/07/21Lucy Shay MD calcium carbonate/vitamin D3 (VITAMIN D-3 [...] azelastine (ASTELIN) 137 mcg (0.1 %) Aerosol, [place] instill 1 spray into each nostril [...] azelastine (ASTELIN) 137 mcg (0.1 %) Aerosol, [place] instill 1 spray into each nostril [...] mg 800 mg Oral Q6H PRN Cece Graham, DEMETRI Allergies Allergies Allergen Reactions ??? Grass Pollen-[place], [...] History: Procedure Laterality Date ??? CREATED BY [facility]) Procedure Date: 01/16/2008 ??? KNEE SURGERY 03/01/14 Right knee; patella surgery ??? LITHOTRIPSY ? ? PRO CYSTOURETHROSCOPY, FULGUR <.5CM LESN N/A 04/18/2017 CYSTO, FULGURATION\BLADDER LESION\W\WO BX\LESS THAN 0.5CM (WRVU 4.05) performed by Luis Michael Jr., MD at [facility] MAIN OR ??? SHOULDER SURGERY Right [...] History Narrative with 3 children. Lives in [place], [place]. 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 Eats relatively healthy with fruits, vegetables, yogurt, and milk; minimal meat. Eats 3 meals per day, does not drink tea or coffee, and occasionally drinks soda.Her youngest is 19 yrs old,in college in [place]. The other two are out of the [...] normal work of breathing Breasts: (performed with point of care specialist): Breasts are without masses, skin changes, or dimpling bilaterally. No axillary lymphadenopathy is appreciable. (Heel Brusher present.) Psychiatric: She has a normal mood and affect. Her behavior is normal. Thought content normal. Pelvic Exam: Performed in the presence of a point of care specialist Normal external female genitalia with evidence of mild hypoestrogen: normal bilateral labia majora,labia minora, clitoral shipman, clitoris, and b/l frenula. Vagina moderately atrophic, pale w/ loss ofrugae. Normal physiologic discharge. No abnormal discharge or blood in the vaginal vault. Cervix well visualized but no strings visible during speculum exam or felt on bimanual. Cervix without lesions or cervical motion tenderness (CMT). uterus: normal size, mobile, [...] a PCP for routine healthcare maintenance and figure skater for osteoporosis management. Pt is s/p Mirena [...] at least for summer. We reviewed the risks and benefits of the estradiol patch for HRT--which were also previously discussed--and the pt expressed understanding. She confirmed that she would like to increase the dose for quality of life.I discussed with the patient a possible plan for increase in dose after review with attending. Pt stated a phone-call would be fine to discuss estrogen dose management. After review with attending compensator worker, Dr. Miner, shortly after patient left, it [...] up and called Stacy Albright on 11/05/2021 to discuss increasing the estrogen dose. The patient confirmed her strong desire for increasing Estrogen dose to help control hot flashes, stating she felt well counseled on the risks. Thus, based on increase in vasomotor symptoms with Mirena IUD felt to still be in place for endometrial protection given confirmation on 12/2020 US, discussed increasing dose back to previous dose of 01. Mg Estradiol patch. I also reviewed that if the pt were to have VB, she should call/notify the office. The patient was in agreement with this. I also discussed with the patient that I did not see IUD strings on exam, but that with TVUS from 12/2020 and only one [...] medical management discussed with Dr. Miner, attending compensator worker. Lucy Shepard MD PGY2 * Brittanie Hardy LPN - 11/02/2021 3:00 PM EST This patient was seen in the OBGYN clinic today. I was present as point of care specialist for the sensitive partsof her examination. * Cesar Miner MD - 11/02/2021 3:00 PM [...] PM documented in this encounter Miscellaneous Notes * Addendum Note - Cesar Miner MD - 11/02/2021 3:00 PM ESTAddended by: CESAR MINER on: 11/08/2021 05:05 PM Modules accepted: Orders documented in this encounter Plan of Treatment Upcoming Encounters Date Type Department Care Team (Late st Contact Info) Description 08/07/2024 3:30 PM EST Office [place] [address] Tarik Henry MD [facility] [place] [address] 09/22/2024 7:00 AM EST [place] [phone] Luis Michael Jr., MD [facility] [place] [address] 09/22/2024 8:00 AM EST [place] [address] Luis Michael Jr., MD [facility] [place] [address] documented as of this encounter Visit Diagnoses Diagnosis Encounter for well woman exam with routine gynecological exam Hot flashes, menopausal Symptomatic menopausal or female climacteric states documented in this encounter Care Teams Logistics Engineer Relationship Specialty Start Date End Date Janet Davey APRN PCP - General Family Medicine 07/13/20 02/10/24 documented as of this encounter
--- OUTSIDE RECORDS SUMMARY | 2024-07-20 18:29 | XMS_ITS | Encounter Summary ---
[facility] Address [facility] [place] [address] Care Team Providers Care Professor Of Latin American Studies Name Role Phone Janet Davey APRN Primary Care Provider [phone] Encounter Details Date Type Department Care Team (Latest Contact Info) Description 06/30/2019 3:30 PM EST - 06/30/2019 11:59 PM [facility] [[email or web address] Hospital En[place] [address] Ferdinand Pennington Jr., MD [facility] [place] [address] History of nephrolithiasis Discharge Disposition: Home Social History Tobacco Use [...] azelastine (ASTELIN) 137 mcg (0.1 %) Aerosol, [place] as needed. 0 06/17/2017 SUMAtriptan (IMITREX) 100 [...] a week. 24 patch 3 08/07/2018 09/16/2019 LINZESS 145 mcg Capsule 145 mg as needed. 0 06/21/2017 02/12/2022 linaCLOtide (Linzess) 72 mcg Capsule Take 72 mcg by mouth. One time per week 02/12/2022 levonorgestrel (MIRENA) 20 mcg/24 hr (5 years) IUD 1 each by Intrauterine route once. Lot [id number] 05/01/2016 05/01/2021 cetirizine (ZYRTEC) 10 mg tablet Take 10 mg by mouth daily. 02/12/2022 tacrolimus (PROTOPIC) 0.1 % ointment 1 Appl(s) Top Twice daily 08/24/2010 02/12/2022 KETOCONAZOLE (NIZORAL TOP) Apply topically. 08/24/2010 02/12/2022 documented as of this encounter Plan of Treatment Upcoming Encounters Date Type Department Care Team (Late st Contact Info) Description 08/07/2024 3:30 PM EST Office Visit [place] [phone] Tarik Henry MD [facility] [place] [address] 09/22/2024 7:00 AM EST Appointment [place] [phone] Ferdinand Pennington Jr., MD [facility] [place] [address] 09/22/2024 8:00 AM EST Office [place] [address] Ferdinand Pennington Jr., MD [facility] [place] [address] documented as of this encounter Procedures Procedure Name Priority Date/Time Associated Diagnosis Comments US RETROPERITONEAL COMPLETE Routine 06/30/2019 3:50 PM EST History of nephrolithiasis documented in this encounter Results * US Retroperitoneal Complete (06/30/2019 3:50 PM EST) Anatomical Region Laterality Modality Abdomen Ultrasound 06/30/2019 3:50 PM EST Impressions 06/30/2019 4:05 PM EST 1. RIGHT kidney: 10.1 cm without evidence [...] this report, please contact the number below. ?Celine Anna, Staff Physician Electronically Signed Final Report ?? 06/30/2019 04:04 pm Narrative 06/30/2019 4:05 PM EST Renal ? (Signed Final 06/30/2019 04:04 pm) PATIENT INFO: ID #: ? [id number] ?: ??[birth year] (53 yrs) Name: ? JESSICA Charles GTZ ?Visit Date: 06/30/2019 03:50 pm PERFORMED BY: Performed By: ? Humberto Donnelly RDMS Attending: ?Shoshana GILL, Celine Narayan Referred By: ?FERDINAND PENNINGTON Location: ? [place] SERVICE(S) PROVIDED: ??URETRO - Retroperitoneal Complete - [id number] ? [id number] INDICATIONS: ??? stones COMPARISON: Ultrasound: Renal / Bladder 06/11/18 RIGHT KIDNEY: Size (cm) ?L: ??10.1 Cortical Thickness: ?Normal Cortical Echogenicity: ?? Normal Hydronephrosis: ?No sonographic evidence Comment ? No renal calculi seen. : LEFT KIDNEY: Size (cm) ?L: ??10.4 Cortical Thickness: ?Normal Cortical Echogenicity: ?? Normal Hydronephrosis: ?No sonographic evidence Comment ? Single small nonobstructing renal calculus seen : ? in the mid pole measuring 3 mm. URINARY BLADDER: Pre-void (cm) ? L: ??10.4 ?AP: ??8.1 ? TV: ??9.9 Vol (ml): ?436.7 Comment ? Distended, normal contour. : Procedure Note Celine Anna MD - 06/30/2019 Renal (Signed Final 06/30/2019 04:04 pm) PATIENT INFO: ID #: [id number] : [birth year] (53 yrs) Name: JESSICA GTZ Visit Date: 06/30/2019 03:50 pm PERFORMED BY: Performed By: Humberto Donnelly RDMS Attending: Celine Anna MD Referred By: FERDINAND PENNINGTON JR Location: [place] SERVICE(S) PROVIDED: URETRO - Retroperitoneal Complete - [id number] INDICATIONS: ? stones COMPARISON: Ultrasound: Renal / Bladder 06/11/18 RIGHT KIDNEY: Size (cm) L: 10.1 Cortical Thickness: Normal Cortical Echogenicity: Normal Hydronephrosis: No sonographic evidence Comment No renal calculi seen. : LEFT KIDNEY: Size (cm) L: 10.4 Cortical Thickness: Normal Cortical Echogenicity: Normal Hydronephrosis: No sonographic evidence Comment Single small nonobstructing renal calculus seen : in the mid pole measuring 3 mm. URINARY BLADDER: Pre-void (cm) L: 10.4 AP: 8.1 TV: 9.9 Vol (ml): 436.7 Comment Distended, normal contour. : IMPRESSION 1. RIGHT kidney: 10.1 cm without evidence [...] this report, please contact the number below. Celine Anna, Staff Physician Electronically Signed Final Report 06/30/2019 04:04 pm Ferdinand [facility] Jr., [facility] ORDERAB L[facility] documented in this encounter Visit Diagnoses Diagnosis History of nephrolithiasis Personal history of urinary calculi documented in this encounter Care Teams Professor Of Latin American Studies Relationship Specialty Start Date End Date Janet Davey APRN PCP - General Family Medicine 06/23/18 07/12/20 documented as of this encounter
--- OUTSIDE RECORDS SUMMARY | 2024-07-20 18:29 | XMS_ITS | Encounter Summary ---
[place] [address] Care Team Providers Care Managed Care Director Name Role Phone Janet Davey APRN Primary Care Provider [phone] Reason for Visit * Reason Comments Follow-up Encounter Details Date Type Department Care Team (Late st Contact Info) Description 08/04/2021 3:00 PM EST Office Visit Obstetrics [place] [address] Lucy Shay MD [address] [place] [address] [place] [address] Osteoporosis, post-menopausal Social History Tobacco Use Types Packs/Day Years [...] 36.7 ??C (98.1 ??F) 08/04/2021 3:00 PM ES T Respiratory Rate 16 08/04/2021 3:00 PM EST Oxygen Saturation 97% 08/04/2021 3:00 PM EST Inhaled Oxygen Concentration - - Weight 69.4 kg (153 lb) 08/04/2021 3:00 PM EST Height 172.7 cm (5' 8) 08/04/2021 3:00 PM EST Body Mass Index 23.26 08/04/2021 3:00 PM EST documented in this encounter Progress Notes * Lucy Espino MD - 08/04/2021 3:00 PM [...] Stacy reports that neither she nor her Saturator Operator has an objection to going down to the lowest dose of her patch. She doesn't want to go off cold turkey, and would preferto wean down. She reports that she hasn't had bleeding symptoms for quite a while. She last had a little bit ofspotting early last spring, but no further bleeding [...] would still get benefit for her bone health. She plans to further taper and discontinue this patch within the next year. Plan to taper from 0.1mg Estradiol patch to 0.025mg Estradiol patch today, Rx sent to pt's preferred pharmacy. From a perspective on her PMB, she had a benign EMB in November 2020, and a TVUS in December 2020 that showed a 2.8mm endometrial stripe. Given that she has not had further vaginal bleeding since that time, no further evaluation of her endometrial lining is necessary at this time. Mirena IUD inserted in Apr 2016, not due for replacement until 2022. Patient discussed with Dr Do Pierre, attending OBGYN Lucy Espino MD PGY-4 08/04/2021 * Do Pierre MD - 08/04/2021 3:00 PM [...] 3:30 PM EST Office Visit [place] [phone] Tarik Henry MD [facility] [place] [address] 09/22/2024 7:00 AM EST Appointment [place] [address]1000 Luis Michael Jr., MD [facility] [place] [address] 09/22/2024 8:00 AM EST Office [place] [address] Luis Michael Jr., MD [facility] [address] documented as of this encounter Visit Diagnoses Diagnosis Osteoporosis, post-menopausal Senile osteoporosis documented in this encounter Care Teams Managed Care Director Relationship Specialty Start Date End Date Janet Davey APRN PCP - General Family Medicine 07/13/20 02/10/24 documented as of this encounter
--- OUTSIDE RECORDS SUMMARY | 2024-07-20 18:29 | XMS_ITS | Encounter Summary ---
Author Organization [facility] [place] [address] Care Team Providers Care Retail Assistant Store Manager Name Role Phone Janet Davey APRN Primary Care Provider [phone] Reason for Referral * Diagnostic Test (Routine) - Closed Specialty Diagnoses / Procedures Referred By Contac t Referred To Contact Radiology Diagnoses Osteoporosis, unspecified osteoporosis type, unspecified pathological fracture presence Procedures DXA Central Spine, Hip, and/or Whole Body (Generic) Cuate Hall MD [facility] [place] [address] [facility] Mobile Xray [address] [place] [address] [place] [address] Referral ID Status Reason Start Date Expiration Date V isits Requested Visits Authorized [id number] Closed Specialty Service Requested 03/14/2020 09/14/2021 1 1 Reason for Visit * Diagnostic Test (Routine) - Closed Specialty Diagnoses / Procedures Referred By Contac t Referred To Contact Radiology Diagnoses Osteoporosis, unspecified osteoporosis type, unspecified pathological fracture presence Procedures DXA Central Spine, Hip, and/or Whole Body (Generic) Cuate Hall MD [facility] [place] [address] [facility] Rad Xray [address] [place] [address] [place] [address] Referral ID Status Reason Start Date Expiration Date V isits Requested Visits Authorized [id number] Closed Specialty Service Requested 03/14/2020 09/14/2021 1 1 Encounter Details Date Type Department Care Team (Latest Contact Info) Description 07/07/2020 1:30 PM EST - 07/07/2020 11:59 PM EST Hospital Encounter XRay at [address] [place] [address] Cuate Hall MD [facility] [place] [address] Osteoporosis, unspecified osteoporosis type, unspecified pathological fracture [...] azelastine (ASTELIN) 137 mcg (0.1 %) Aerosol, [place] as needed. 0 06/17/2017 SUMAtriptan (IMITREX) 100 [...] 1 each by Intrauterine route once. Lot [id number] 05/01/2016 05/01/2021 cetirizine (ZYRTEC) 10 mg tablet Take 10 mg by mouth daily. 02/12/2022 tacrolimus (PROTOPIC) 0.1 % ointment 1 Appl(s) Top Twice daily 08/24/2010 02/12/2022 KETOCONAZOLE (NIZORAL TOP) Apply topically. 08/24/2010 02/12/2022 documented as of this encounter Plan of Treatment Upcoming Encounters Date Type Department Care Team (Late st Contact Info) Description 08/07/2024 3:30 PM EST Office [place] [phone] Tarik Henry MD [facility] [place] [address] 09/22/2024 7:00 AM EST Appoint[place] [address] Luis Michael Jr., MD [facility] [place] [address] 09/22/2024 8:00 AM EST Office Visit Urology at [facility] [place] [address] Luis Michael Jr., MD [facility] [place] [address] documented as of this encounter Procedures Procedure Name Priority Date/Time Associated Diagnosis Comments DXA CENTRAL SPINE, HIP, AND/OR WHOLE BODY (GENERIC) Routine 07/07/2020 1:56 PM EST Osteoporosis, unspecified osteoporosis type, unspecified [...] BMD measurements and plots are available in EFlasma under the imaging tab. Paper copies will be sent to providers without Easel Learn access. If you have received this report without the data sheet and do not have access to Easel Learn, please contact Radiology Parking Lot Attendant And Cashier at [phone] Saturday thru Saturday 8am-4pm. Thank you for letting us participate in the care of this patient. For questions regarding this report, please contact the number below. ? Narrative 07/07/2020 5:05 PM [...] BMD measurements and plots are available in EOpenQunder the imaging tab. Paper copies will be sent to providers without Easel Learn access.If you have received this report without the data sheet and do not haveaccess to Easel Learn, please contact Radiology Parking Lot Attendant And Cashier at [phone] Saturday thruFriday 8am-4pm. Thank you for letting us participate in the care of this patient. Forquestions regarding this report, please contact the number below. Cuate Hall MD IMG DEXA ORDERABLES documented in this encounter Visit Diagnoses Diagnosis Osteoporosis, unspecified osteoporosis type, unspecified pathological fracture presence documented in this encounter Care Teams Retail Assistant Store Manager Relationship Specialty Start Date End Date Edvanessa Janet Moss APRN PCP - General Family Medicine 06/23/18 07/12/20 documented as of this encounter
--- OUTSIDE RECORDS SUMMARY | 2024-07-20 18:29 | XMS_ITS | Encounter Summary ---
Author Organization [facility] Address [facility] [place] [address] Care Team Providers Care Bricklayer'S Assistant Name Role Phone Janet Davey APRN Primary Care Provider [phone] Reason for Referral * Diagnostic Test (Routine) - Closed Specialty Diagnoses / Procedures Referred By Contac t Referred To Contact Radiology Diagnoses Osteoporosis, unspecified osteoporosis type, unspecified pathological fracture presence Procedures DXA Central Spine, Hip, and/or Whole Body (Generic) Kady Clinton MD [facility] [place] [address] [facility] Rad Xray [address] [place] [address] [place] [address] Referral ID Status Reason Start Date Expiration Date V isits Requested Visits Authorized [id number] Closed Specialty Service Requested 06/09/2021 12/08/2022 1 1 Encounter Details Date Type Department Care Team (Late st Contact Info) Description 06/09/2021 4:00 PM EDT Office Visit Endocrinology at [facility] [place] [address] Kady Clinton MD [facility] [place] [address] Osteoporosis, unspecified osteoporosis type, unspecified pathological fracture [...] 36.2 ??C (97.1 ??F) 06/09/2021 3:57 PM ED T Respiratory Rate - - Oxygen Saturation 100% 06/09/2021 3:57 PM EDT Inhaled Oxygen Concentration - - Weight 69.9 kg (154 lb 1.6 oz) 06/09/2021 3:57 P M EDT Height 172.7 cm (5' 8) 06/09/2021 3:57 PM EDT Body Mass Index 23.43 06/09/2021 3:57 PM EDT documented in this encounter Progress Notes * Kday Clinton MD - 06/09/2021 4:00 PM EDT Date of Visit: 06/09/2021 Patient Name: Stacy Albright : 1965 PCP: Janet Davey APRN 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 She was previously seen by 06/2020. She has had 3 episodes of kidney stones, does not remember when was a last one, in pathology I see one in 2009. Has been on ERT for a long time, and tells me that her new BACK CLOSER wants to decrease or stop it. She [...] [] 701-900 mg [] 901-1100 mg [] 9380-8300 mg [] 1758-7317 mg [] Above 1500 mg Medications: Current [...] azelastine (ASTELIN) 137 mcg (0.1 %) Aerosol, [place] instill 1 spray into each nostril twice [...] Top Twice daily (Patient not taking: Reported on06/09/2021) ??? KETOCONAZOLE (NIZORAL TOP) (Patient not taking: [...] History Narrative with 3 children. Lives in [place], [place]. 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 Eats relatively healthy with fruits, vegetables, yogurt, and milk; minimal meat. Eats 3 meals per day, does not drink tea or coffee, and occasionally drinks soda.Her youngest is 19 yrs old,in college in [place]. The other two are [...] with low Ca intake make more Caox stones than those with adequate intake. A. As patient's Ca intake is 500-600 mg from food, and will get 24h urine stone profile to see if we need to improve her citrate, reduce Ca etc. [...] discussing osteoporosis and writing my note. Sincerely, Kady Clinton MD Professor documented in this encounter Plan of Treatment Upcoming Encounters Date Type Department Care Team (Late st Contact Info) Description 08/07/2024 3:30 PM EST Office Visit Orthopaedics at [place] [phone] Tarik Henry MD [facility] [place] [address] 09/22/2024 7:00 AM EST Appointment Ultrasound at [place] [phone] Luis Michael Jr., MD [facility] [place] [address] 09/22/2024 8:00 AM EST [place] [phone] Luis Michael Jr., MD [facility] [place] [address] documented as of this encounter Procedures Procedure Name Priority Date/Time Associated Diagnosis Comments HC PARATHYROID HORMONE(PTH INTACT Routine 06/09/2021 4:57 PM EDT Osteoporosis, unspecified osteoporosis type, unspecified pathological fracture presence HC PCH COLLAGEN TYPE 1 C-TELOPEPTIDE (CTX) Routine 06/09/2021 4:57 PM EDT Osteoporosis, unspecified osteoporosis type, unspecified pathological fracture presence HC VENIPUNCTURE Routine 06/09/2021 4:57 PM EDT Osteoporosis, unspecified osteoporosis type, unspecified [...] BMD measurements and plots are available in EAlgisys under the imaging tab. Paper copies will be sent to providers without EAlgisys access. If you have received this report without the data sheet and do not have access to inSilica, please contact Radiology Stationary Engineer Supervisor at [phone] Saturday thru Saturday 8am-4pm. ? Bone Density Report ? Name: ?Stacy Albright Age: ? 57 Sex: ? Female Ethnicity: ? White Date of : 1965 Referring Provider: KADY CLINTON Study: Bone densitometry was performed. Model: Codey Tristan (S/N [id number]) version 13.6.0.5 Exam Date: October 10, 2022 Accession number: [id number] Bone Density: Region ? BMD ?T-score ??Z-score [...] have questions please contact the health career technical counselor that requested your imaging first. ? Electronically signed by: Swapna Cedeño MD, [facility] ([phone]), at 10/10/2022 1:43 PM Narrative 10/10/2022 1:43 PM EST EXAMINATION: DXA CENTRAL SPINE, HIP, AND/OR WHOLE BODY (GENERIC) CLINICAL HISTORY: ??57 years Female 2 year follow-up (as entered by ordering provider) TECHNIQUE: Scans were acquired at the lumbar spine and left hip using the Bycler Horizon A system. FINDINGS: Femoral neck BMD: 0.532 g/cm2 Lowest T-score at the diagnostic region of interest: T-score: -2.9, TENZIN: Femoral neck, WHO diagnosis: 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 ......... Comparison......... Previous scan:July 07, 2020 Baseline scan:February 13, 2011 Total spine: Compared to the previous, -0.026 ??g/cm2 (3 %) decrease. Compared to the baseline, -0.023 g/cm2 (2 %) decrease. At [facility], least significant change for bone mineral density measurements at the spine region of interest: 0.031 g/cm2 Total hip: Compared to the previous, -0.032 ??g/cm2 (5 %) decrease. Compared to the baseline, -0.048 g/cm2 (7 %) decrease. At [facility], least significant change for bone mineral density measurements at the left total hip region of interest: 0.025 g/cm2 Procedure Note Swapna Cedeño MD - 10/10/2022 EXAMINATION: DXA CENTRAL SPINE, HIP, AND/OR WHOLE BODY (GENERIC) CLINICAL HISTORY: 57 years Female 2 year follow-up (as entered byordering provider) TECHNIQUE: Scans were acquired at the lumbar spine and left hip usingthe Bycler Horizon A system. FINDINGS: Femoral neck BMD: 0.532 g/cm2 Lowest T-score at the diagnostic region of interest: T-score: -2.9, TENZIN: Femoral neck, WHO diagnosis: 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 ......... Comparison......... Previous scan:July 07, 2020 Baseline scan:February 13, 2011 Total spine: Compared to the previous, -0.026 g/cm2 (3 %) decrease. Compared to the baseline, -0.023 g/cm2 (2 %) decrease. At [facility], least significant change for bonemineral density measurements at the spine region of interest: 0.031 g/cm2 Total hip: Compared to the previous, -0.032 g/cm2 (5 %) decrease. Compared to the baseline, -0.048 g/cm2 (7 %) decrease. At [facility], least significant change for bonemineral density [...] BMD measurements and plots are available in inSilicaunder the imaging tab. Paper copies will be sent to providers without inSilica access.If you have received this report without the data sheet and do not haveaccess to inSilica, please contact Radiology Stationary Engineer Supervisor at [phone] Saturday thruFriday 8am-4pm. Bone Density Report Name: Stacy Albright Age: 57 Sex: Female Ethnicity: White Date of : 1965 Referring Provider: KADY CLINTON Study: Bone densitometry was performed. Model: CasterStats A (S/N [id number]) SW version 13.6.0.5 Exam Date: October 10, 2022 Accession number: [id number] Bone Density: Region BMD T-score Z-score AP [...] who have questions please contactthe health career technical counselor that requested your imaging first. Kady Clinton MD IMG DEXA ORDERABLES * Calcium (06/09/2021 4:57 PM EDT) Calcium 9.0 8.5 - 10.5 mg/dL [facility] Blood 06/09/2021 4:57 PM EDT 06/09/2021 5:05 PM EDT Narrative Resulting Agency Comment Spec In Lab Kady Clinton MD CHEMISTRY ORDERABLES Performing Organization Address [facility]/ZIP Co de Phone Number [facility] [place] [address] * PTH (06/09/2021 4:57 PM EDT) Parathyroid Hormone 59 15 - 65 pg/mL [facility] Blood 06/09/2021 4:57 PM EDT 06/09/2021 5:05 PM EDT Narrative Resulting Agency Comment Spec In Lab Kady Clinton MD CHEMISTRY ORDERABLES Performing Organization Address [facility] Co de Phone Number [facility] [place] [address] * Collagen Type I C-Telopeptide (06/09/2021 4:57 PM EDT) CTX 283 pg/mL [facility] Comment: ?Unable to flag abnormal result(s), please refer ?to reference range(s) below: Reference Range, Females: ?<5 years: Not Established ? 5-9 years: 574-1849 pg/mL ? 10-13 years: 519-2415 pg/mL ? 14-17 years: 242-1291 pg/mL ? 18-29 years: 64-640 pg/mL ? 30-39 years: 60-650 pg/mL ? 40-49 years: 40-465 pg/mL ? >49 years: Not Established No reference range is provided for postmenopausal women because of the increased rate of bone turnover post-menopause. It is recommended that results for postmenopausal women be compared to the premenopausal reference range as this will give a better indication of their rate of bone loss. For additional information, please refer to https://education.Cinnamon/faq/PHH650 (This link is being provided for informational/ educational purposes only.) Test Performed by [facility], [facility], [address] [place] [address] Omar Kate M.D., Ph.D., Director of Laboratories , [place] [id number] Blood 06/09/2021 4:57 PM EDT 06/12/2021 12:14 PM EDT Narrative Resulting Agency Comment Spec In Lab Kady Clinton MD LAB SEND OUT ORDERAB LES [facility] [place] [address] documented in this encounter Visit Diagnoses Diagnosis Osteoporosis, unspecified osteoporosis type, unspecified pathological fracture presence Osteoporosis, unspecified osteoporosis type, unspecified pathological fracture presence documented in this encounter Care Teams Bricklayer'S Assistant Relationship Specialty Start Date End Date Janet Davey APRN PCP - General Family Medicine 07/13/20 02/10/24 documented as of this encounter
--- OUTSIDE RECORDS SUMMARY | 2024-07-20 18:30 | XMS_ITS | Encounter Summary ---
Author Organization [facility] Address [facility] [place] [address] Care Team Providers Care Policy Checker Name Role Phone Francisco Javier Suzie Perez APRN Primary Care Provider [phone] Encounter Details Date Type Department Care Team (Latest Contact Info) Description 03/13/2017 3:15 PM EDT - 03/13/2017 11:59 PM EDT Hospital Encounter XRay at [address] [place] [address] Nephrolithiasis Discharge Disposition: Home Social History Tobacco [...] Refills Start Date End Date SUMAtriptan (IMITREX) 100 mg Tablet as needed for Migraine. 1 04/13/2016 hydrocortisone (WESTCORT) 0.2 % Cream Apply topically as needed. 07/25/2015 multivitamin (THERAGRAN) tablet Take 1 tablet by mouth daily. montelukast (SINGULAIR) 10 mg tablet Take 10 mg by mouth daily as needed. 12/07/2010 albuterol (ACCUNEB) 0.63 mg/3 mL nebulizer solution 08/24/2010 donepezil (ARICEPT) 5 mg Tablet 5 mg daily. 0 01/27/2017 06/27/2017 linaCLOtide (Linzess) 72 mcg Capsule Take 72 mcg by mouth. One time per week 02/12/2022 donepezil (ARICEPT) 10 mg Tablet Take 10 mg by mouth every morning. 06/11/2018 estradiol 0.1 mg/24 hr Patch Semiweekly apply 1 patch two times a week as directed 8 patch 11 07/27/2016 06/18/2017 NASONEX 50 mcg/actuation [place], Non-Aerosol 0 05/18/2016 06/11/2018 levonorgestrel (MIRENA) 20 mcg/24 hr (5 years) IUD 1 each by Intrauterine route once. Lot [id number] 05/01/2016 05/01/2021 omeprazole (PRILOSEC) 20 mg Capsule, Delayed Release(E.C.) PRN 0 03/22/2016 08/06/2018 ondansetron (ZOFRAN) 4 mg Tablet take 1 tablet by mouth every 6 hours if needed 0 03/20/2016 04/09/20 17 NIFEdipine (ADALAT CC) 30 mg Tablet Sustained Release Take 30 mg by mouth daily. 08/06/2018 cetirizine (ZYRTEC) 10 mg tablet Take 10 mg by mouth daily. 02/12/2022 fluticasone-salmeterol (ADVAIR) 500-50 mcg/dose diskus inhaler Inhale 1 puff into the lungs 2 times daily as needed (winter time). 06/27/2017 tacrolimus (PROTOPIC) 0.1 % ointment 1 Appl(s) Top Twice daily 08/24/2010 02/12/2022 KETOCONAZOLE (NIZORAL TOP) Apply topically. 08/24/2010 02/12/2022 documented as of this encounter Plan of Treatment Upcoming Encounters Date Type Department Care Team (Late st Contact Info) Description 08/07/2024 3:30 PM EST Office [place] [address] Tarik Henry MD [facility] [place] [address] 09/22/2024 7:00 AM EST Appointment [place] [address] Luis Michael Jr., MD [facility] [place] [address] 09/22/2024 8:00 AM EST Office [place] [address] Luis Michael Jr., MD [facility] [place] [address] documented as of this encounter Procedures Procedure Name Priority Date/Time Associated Diagnosis Comments XR ABDOMEN 1 VIEW Routine 03/13/2017 3:2 9 PM EDT Nephrolithiasis documented in this encounter Results * XR Abdomen 1 view (Generic) (03/13/2017 3:29 PM EDT) Anatomical Region Laterality Modality Abdomen N/A Digital Radiogra phy Impressions 03/13/2017 3:34 PM EDT No radiopaque urinary tract calculus identified. Narrative 03/13/2017 3:34 PM EDT EXAMINATION: XR ABDOMEN 1 VIEW (GENERIC) CLINICAL HISTORY: stone history, eval current burden TECHNIQUE: Supine abdomen 03/13/2017 COMPARISON: None FINDINGS: No radiopaque calculus projects over either kidney or along the expected course of either ureter. No pelvic calcifications are present. Normal bowel gas pattern with even distribution of air throughout small and large bowel. No dilated loops. No focal osseous lesion. An IUD projects over the pelvis. Surgical material projects over the inguinal regions bilaterally. Procedure Note Blanquita Jimenez MD - 03/13/2017 EXAMINATION: XR ABDOMEN 1 VIEW (GENERIC) CLINICAL HISTORY: stone history, eval current burden TECHNIQUE: Supine abdomen 03/13/2017 COMPARISON: None FINDINGS: No radiopaque calculus projects over either kidney or along the expectedcourse of either ureter. No pelvic calcifications are present. Normal bowel gas pattern with even distribution of air throughout smalland large bowel. No dilated loops. No focal osseous lesion. An IUD projectsover the pelvis. Surgical material projects over the inguinal regionsbilaterally. IMPRESSION No radiopaque urinary tract calculus identified. Luis Michael Jr., MD IMG DX ORDERABLES documented in this encounter Visit Diagnoses Diagnosis Nephrolithiasis Calculus of kidney documented in this encounter Care Teams Policy Checker Relationship Specialty Start Date End Date Suzie Mcintyre APRN PCP - General Family Medicine 02/28/17 06/26/17 documented as of this encounter
--- OUTSIDE RECORDS SUMMARY | 2024-07-20 18:30 | XMS_ITS | Encounter Summary ---
Author Organization [facility] Address [facility] [place] [address] Care Team Providers Care Tile Setter Name Role Phone GradySuzie costello SACHA Primary Care Provider Encounter Details Date Type Department Care Team (Latest Contact Info) Description 03/13/2017 2:28 PM EDT - 03/13/2017 3:14 PM EDT Hospital Encounter [place] [address] Ferdinand Michael Jr., MD [facility] [place] [address] Nephrolithiasis Discharge Disposition: Home Social History Tobacco [...] Tablet 5 mg daily. 0 01/27/2017 06/27/2017 estradiol 0.1 mg/24 hr Patch Semiweekly apply 1 patch two times a week as directed 8 patch 11 07/27/2016 06/18/2017 NASONEX 50 mcg/actuation [place], Non-Aerosol 0 05/18/2016 06/11/2018 levonorgestrel (MIRENA) 20 mcg/24 hr (5 years) IUD 1 each by Intrauterine route once. Lot [id number] 05/01/2016 05/01/2021 omeprazole (PRILOSEC) 20 mg Capsule, [...] 3:30 PM EST Office [place] [address] Tarik Henry MD [facility] [place] [address] 09/22/2024 7:00 AM EST Appointment [place] [address] Ferdinand Michael Jr., MD [facility] [place] [address] 09/22/2024 8:00 AM EST Office [place] [address] Ferdinand Michael Jr., MD [facility] [place] [address] documented as of this encounter Procedures Procedure Name Priority Date/Time Associated Diagnosis Comments US RETROPERITONEAL COMPLETE Routine 03/13/2017 2:55 PM EDT Nephrolithiasis documented in this encounter Results * US Retroperitoneal Complete (03/13/2017 2:55 PM EDT) Anatomical Region Laterality Modality Abdomen Ultrasound 03/13/2017 2:56 PM EDT Impressions 03/13/2017 5:40 PM EDT ??1. ??Interval mild right sided pelvicaliectasis and possible tiny 2 mm rightinterpolar renal calculus.2. ??No left-sided pelvicaliectasis or sonographically evident nephrolithiasis.3. ??Unremarkable bladder.I have personally reviewed the image(s) and the residents interpretation andagree with the findings, Genie Carrasco at 03/13/2017 5:32 PM ?Genie Carrasco MD Electronically Signed Final Report ?? 03/13/2017 05:40 pm Narrative 03/13/2017 5:40 PM EDT Renal ? (Signed Final 03/13/2017 05:40 pm) PATIENT INFO: ID #: ? [id number] ?: ??[birth year] (51 yrs) Name: ? JESSICA GTZ ?Visit Date: 03/13/2017 02:56 pm PERFORMED BY: Performed By: ? Chetna Hedrick RDMS Attending: ?Luna GILL, Genie Dumont Resident: ? Chula GILL, Kip Rojas Referred By: ?FERDINAND MICHAEL JR Location: ? [place] SERVICE(S) PROVIDED: ??URETRO - Retroperitoneal Complete - [id number] ? [id number] INDICATIONS: ??pt with history of stones, eval current burden ??for operative planning COMPARISON: Renal/bladder ultrasound 07/26/15. RIGHT KIDNEY: Size (cm) ?L: ??9.9 Cortical Thickness: ?Normal where seen Cortical Echogenicity: ?? Normal Hydronephrosis: ?Mild pelvicaliectasis Comment: ?Limited visualization of lower pole due to overlying ? bowel gas. ? Possible 2 mm right mid pole calculus. LEFT KIDNEY: Size (cm) ?L: ??10.8 Cortical Thickness: ?Normal Cortical Echogenicity: ?? Normal Hydronephrosis: ?No sonographic evidence Comment: ?No renal calculi seen. URINARY BLADDER: Right Urinary Jet: Visualized Left Urinary Jet: ??Visualized Pre-void (cm) ? L: ??9.6 ? AP: ??7.9 ? TV: ??9.8 Vol (ml): ?389.2 Comment: ?Partially distended, normal contour. Procedure Note Genie Carrasco MD - 03/13/2017 Renal (Signed Final 03/13/2017 05:40 pm) PATIENT INFO: ID #: [id number] : [birth year] (51 yrs) Name: JESSICA GTZ Visit Date: 03/13/2017 02:56 pm PERFORMED BY: Performed By: Chetna Hedrick RDMS Attending: Genie Carrasco MD Resident: Kip Quiros MD Referred By: FERDINAND MICHAEL JR Location: [place] SERVICE(S) PROVIDED: URETRO - Retroperitoneal Complete - [id number] INDICATIONS: pt with history of stones, eval [...] Vol (ml): 389.2 Comment: Partially distended, normal contour. IMPRESSION 1. Interval mild right sided pelvicaliectasis and possible tiny 2 mm rightinterpolar renal calculus.2. No left-sided pelvicaliectasis or sonographically evident nephrolithiasis.3. Unremarkable bladder.I have personally reviewed the image(s) and the residents interpretation andagree with the findings, Genie Carrasco at 03/13/2017 5:32 PM Genie Carrasco MD Electronically Signed Final Report 03/13/2017 05:40 pm Ferdinand Michael Jr., MD IMG US GEN ORDERAB LES documented in this encounter Visit Diagnoses Diagnosis Nephrolithiasis Calculus of kidney documented in this encounter Care Teams Tile Setter Relationship Specialty Start Date End Date Suzie Mcintyre, SACHA PCP - General Family Medicine 02/28/17 06/26/17 documented as of this encounter
--- OUTSIDE RECORDS SUMMARY | 2024-07-20 18:30 | XMS_ITS | Encounter Summary ---
Author Organization [facility] [place] [address] Care Team Providers Care Banquet Line Cook Name Role Phone HectorSarah garcia Jeramie GONCALVES Primary Care Provider [phone] Encounter Details Date Type Department Care Team (Late st Contact Info) Description 06/27/2017 2:00 PM EDT Office [place] [address] Cuate Hall MD [facility] [place] [address] Osteoporosis, unspecified osteoporosis type, unspecified pathological fracture [...] kg (151 lb 9.6 oz) 06/27/2017 2:08 P M EDT Height 172.7 cm (5' 8) 06/27/2017 2:08 PM EDT Body Mass Index 23.05 06/27/2017 2:08 PM EDT documented in this encounter Progress Notes * Cuate Hall MD - 06/27/2017 2:00 PM EDT Subjective: Patient ID: Stacy Albright is a 51 y.o. 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 and does not have any significant [...] 3:30 PM EST [place] [address] Tarik Henry MD [facility] DR [place] [address] 09/22/2024 7:00 AM EST Appointment Ultrasound at [place] [phone] Lius Michael Jr., MD [facility] [place] [address] 09/22/2024 8:00 AM EST [place] [address] Luis iMchael Jr., MD [facility] [place] [address] documented as of this encounter Procedures Procedure Name Priority Date/Time Associated Diagnosis Comments PTH Routine 06/27/2017 3:22 PM EDT Osteoporosis, unspecified osteoporosis type, unspecified pathological fracture presence VITAMIN D, 25-HYDROXY Routine 06/27/2017 3:22 PM EDT Osteoporosis, unspecified osteoporosis type, unspecified pathological fracture presence CALCIUM Routine 06/27/2017 3:22 PM EDT Osteoporosis, unspecified osteoporosis type, unspecified pathological fracture presence documented in this encounter Results * Calcium (06/27/2017 3:22 PM EDT) Calcium 9.1 8.5 - 10.5 mg/dL [facility] Blood specimen (specimen) 06/27/2017 3:22 PM EDT 06/27/2017 3:29 PM EDT Narrative Resulting Agency Comment Spec In Lab Cuate Hall MD CHEMISTRY ORDERABLES Performing Organization Address [facility]/[place] [address] * Vitamin D, 25-Hydroxy (06/27/2017 3:22 PM EDT) Vitamin D Total 25 OH 32 30 - 100 ng/mL [facility] Comment: Deficient <10 ng/mL Insufficient 10 to 29 ng/mL Sufficient 30 to 100 ng/mL Potential Intoxication >100 ng/mL According to the US National Osteoporosis Foundation, Vitamin D concentrations >30 ng/mL are sufficient to protect bone health. ??The National Kidney Foundation has similarly stated that patients with Vitamin D concentrations <30ng/mL should be considered to be insufficient or deficient. http://ShoeSize.Me.Clipabout/nkf-guidelines http://ShoeSize.Me.Clipabout/nejm-VitD The IDS iSYS Vitamin D Immunoassay detects both 25-OH Vitamin D2 and 25-OH Vitamin D3, but only a total Vitamin D concentration is reported. Blood specimen (specimen) 06/27/2017 3:22 PM EDT 06/28/2017 7:52 AM EDT Narrative Resulting Agency Comment Spec In Lab Cuate Hall MD CHEMISTRY ORDERABLES Performing Organization Address City/[facility]/ZIP Co de Phone Number [facility] [place] [address] * PTH (06/27/2017 3:22 PM EDT) Parathyroid Hormone 41 15 - 65 pg/mL [facility] Blood specimen (specimen) 06/27/2017 3:22 PM EDT 06/27/2017 3:29 PM EDT Narrative Resulting Agency Comment Spec In Lab Cuate Hall MD CHEMISTRY ORDERABLES Performing Organization Address City/State/[facility] [[email or web address]] Co de Phone Number [facility] [place] [address] documented in this encounter Visit Diagnoses Diagnosis Osteoporosis, unspecified osteoporosis type, unspecified pathological fracture presence documented in this encounter Care Teams Banquet Line Cook Relationship Specialty Start Date End Date Sarah Young, BLACK TOP ROLLER [address] [place] [address] PCP - General Family Medicine 06/27/17 05/15/18 documented as of this encounter
--- OUTSIDE RECORDS SUMMARY | 2024-07-20 18:30 | XMS_ITS | Encounter Summary ---
Author Organization [facility] Address [facility] [place] [address] Care Team Providers Care Email Operations Manager Name Role Phone Sarah Young SACHA Primary Care Provider [phone] Encounter Details Date Type Department Care Team (Latest Contact Info) Description 06/27/2017 1:00 PM EDT - 06/27/2017 11:59 PM EDT Hospital Encounter XRay at [address] [place] [address] Cuate Hall MD [facility] [place] [address] Osteoporosis, unspecified osteoporosis type, unspecified pathological fracture [...] Start Date End Date azelastine (ASTELIN) 137 mcg (0.1 %) Aerosol, [place] as needed. 0 06/17/2017 SUMAtriptan (IMITREX) 100 mg Tablet as needed for Migraine. 1 04/13/2016 hydrocortisone (WESTCORT) 0.2 % Cream Apply topically as needed. 07/25/2015 multivitamin (THERAGRAN) tablet Take 1 tablet by mouth daily. montelukast (SINGULAIR) 10 mg tablet Take 10 mg by mouth daily as needed. 12/07/2010 albuterol (ACCUNEB) 0.63 mg/3 mL nebulizer solution 08/24/2010 SYMBICORT 160-4.5 mcg/actuation HFA Aerosol Inhaler 0 06/18/2017 06/30/2019 LINZESS 145 mcg Capsule 145 mg as needed. 0 06/21/2017 02/12/2022 estradiol 0.1 mg/[address] 1 patch onto the skin twice a week. 8 patch 11 06/20/2017 07/10/2018 linaCLOtide (Linzess) 72 mcg Capsule Take 72 mcg by mouth. One time per week 02/12/2022 donepezil (ARICEPT) 10 mg Tablet Take 10 mg by mouth every morning. 06/11/2018 NASONEX 50 mcg/actuation [place], Non-Aerosol 0 05/18/2016 06/11/2018 levonorgestrel (MIRENA) 20 mcg/24 hr (5 years) IUD 1 each by Intrauterine route once. Lot [id number] 05/01/2016 05/01/2021 omeprazole (PRILOSEC) 20 mg Capsule, Delayed Release(E.C.) PRN 0 03/22/2016 08/06/2018 NIFEdipine (ADALAT CC) 30 mg Tablet Sustained [...] PM EST Office Visit [place] [address] Tarki Henry MD [facility] [place] [address] 09/22/2024 7:00 AM EST Appointment [place] [address] Luis Michael Jr., MD [facility] [place] [address] 09/22/2024 8:00 AM EST Office [place] [address] Luis Michael Jr., MD [facility] [place] [address] documented as of this encounter Procedures Procedure Name Priority Date/Time Associated Diagnosis Comments DXA CENTRAL SPINE, HIP, AND/OR WHOLE BODY (GENERIC) Routine 06/27/2017 1:19 PM EDT Osteoporosis, unspecified osteoporosis type, unspecified pathological fracture presence documented in this encounter Results * DXA Central-Spine, Hip, And/Or Whole Body (Generic) (06/27/2017 1:19 PM EDT) Anatomical Region Laterality Modality C-spine, Hip N/A Other Impressions 06/27/2017 4:50 PM EDT * ??Bone mineral density is stable. * ??Osteoporosis by WHO diagnostic criteria. Estimating Fracture Risk: ? The relationship between bone mineral density (BMD) [...] ? DXA data sheets with BMD measurements and plots are available in EParso under the imaging tab. Paper copies will be sent to providers without Myxer access. If you have received this report without the data sheet and do not have access to Myxer, please contact Radiology Coupon Redemption Clerk at [phone] Saturday thru Saturday 8am-4pm. Narrative 06/27/2017 4:50 PM EDT EXAMINATION: DXA CENTRAL-SPINE, HIP, AND/OR WHOLE BODY (GENERIC) CLINICAL HISTORY: osteoporosis TECHNIQUE: Scans were acquired at the lumbar spine and left hip. Densitometer: HoloLIFT12 A FINDINGS: Lowest T-score at the diagnostic region of interest: T-score: -2.6, TENZIN: Femoral neck, WHO diagnosis: Osteoporosis. ......... Comparison......... Previous scan: 04/07/2015, Baseline scan: 02/13/2011 Total hip: Compared to the most recent scan, no significant change. Compared to the baseline scan, no significant change. Total spine: Compared to the most recent scan, no significant change Compared to the baseline scan, no significant change. The measured changes in comparison earlier study are not large enough in magnitude to be confidently considered true increases or decreases in bone mineral density at a 95% confidence level at this institution. Procedure Note Sanket Zhou MD - 06/27/2017 EXAMINATION: DXA CENTRAL-SPINE, HIP, AND/OR WHOLE BODY (GENERIC) CLINICAL HISTORY: osteoporosis TECHNIQUE: Scans were acquired at the lumbar spine and left hip. Densitometer: Antuit Discovery A FINDINGS: Lowest T-score at the diagnostic region of interest: T-score: -2.6, TENZIN: Femoral neck, WHO diagnosis: Osteoporosis. ......... Comparison......... Previous scan: 04/07/2015, Baseline scan: 02/13/2011 Total hip: Compared to the most recent scan, no significant change. Compared to the baseline scan, no significant change. Total spine: Compared to the most recent scan, no significant change Compared to the baseline scan, no significant change. The measured changes in comparison earlier study are not large enough in magnitude to be confidently considered true increases or decreases inbone mineral density at a 95% confidence level at this institution. IMPRESSION * Bone mineral density is stable. * Osteoporosis by WHO diagnostic criteria. Estimating Fracture Risk: ? The relationship between bone mineral density (BMD) [...] partially independent,risk factors in addition to BMD. ? The [...] ? DXA data sheets with BMD measurements and plots are available in EParsounder the imaging tab. Paper copies will be sent to providers without Myxer access.If you have received this report without the data sheet and do not haveaccess to E-, please contact Radiology Coupon Redemption Clerk at [phone] Saturday thruFriday 8am-4pm. Cuate Hall MD IMG DEXA ORDERABLES documented in this encounter Visit Diagnoses Diagnosis Osteoporosis, unspecified osteoporosis type, unspecified pathological fracture presence documented in this encounter Care Teams Email Operations Manager Relationship Specialty Start Date End Date Sarah Young APRN [address] [place] [address] PCP - General Family Medicine 06/27/17 05/15/18 documented as of this encounter
--- OUTSIDE RECORDS SUMMARY | 2024-07-20 18:30 | XMS_ITS | Encounter Summary ---
Author Organization [facility] [place] [address] Care Team Providers Care Furniture Packer Name Role Phone Monica Garcia MD Primary Care Provider Reason for Visit * Reason Onset Date Comments Results 10/11/2016 Encounter Details Date Type Department Care Team (Late st Contact Info) Description 10/11/2016 Telephone Psychiatry [place] [address] Salvador [place], PhD [facility] [place] [address] Results Social History Tobacco Use Types Packs/Day Years [...] encounter Miscellaneous Notes * Telephone Encounter - Salvador [place], PhD - 10/17/2016 9:53 AM EST CONFIDENTIAL FEEDBACK NOTE ON NEUROPSYCHOLOGICAL EVALUATION Patient Name: Stacy Albright MR#: [id number] Date of Evaluation: 09/12/2016 Age: 51 years Date of : Date of Feedback: 1965 10/11/2016 Referred By: Monica Garcia M.D. Mrs. Albright participated in a 30 minute telephone feedback session to discuss the results of her [facility] neuropsychological evaluation. Briefly, [...] difficulty with memory on testing is consistent witha Mild Neurocognitive Disorder; and is concert with her family history of Alzheimer???s disease indicates an increased risk for dementia. Other potential etiologies for theses deficits include her migraine headaches and psychosocial distress, though she did not endorse significant affective distress during the present evaluation. These issues can negatively impact attention and concentration and m darrian in everyday life and it is likely that a combination of these factors is impacting on her current functioning. Findings and recommendations were reviewed. She was encouraged to discuss with her physician whether she might benefit from a cognitive enhancing agent. It was also recommended that she return for neuropsychological re-evaluation in 12-18 months to assess for any changes in her cognition and to further inform differential diagnosis. Additional recommendations for maximizing her cognition were reviewed. The report is available in full on [facility]. Thank you for referring Mrs. Albright for evaluation. Please contact us at [phone] if we can be of further assistance. Christine Raza Psy.D. Salvador [place], Ph.D. Post-Doctoral Fellow Clinical Neuropsychologist Neuropsychology Auction AssistantExecutive Cyber Leaderthrill performer This note was prepared by Christine Raza Psy.D., Postdoctoral Fellow in Neuropsychology, under the supervision of Salvador [place] Ph.D. documented in this encounter Plan of Treatment Upcoming Encounters Date Type Department Care Team (Late st Contact Info) Description 08/07/2024 3:30 PM EST Office [place] [address] Tarik Henry MD [facility] DR [place] [address] 09/22/2024 7:00 AM EST App[place] [address] Luis Michael Jr., MD [facility] [place] [address] 09/22/2024 8:00 AM EST [place] [address] Luis Michael Jr., MD [facility] [place] [address] documented as of this encounter Visit Diagnoses Not on filedocumented in this encounter Care Teams Furniture Packer Relationship Specialty Start Date End Date Monica Garcia MD [address] [place] [address] PCP - General 01/06/13 02/27/17 documented as of this encounter
--- OUTSIDE RECORDS SUMMARY | 2024-07-20 18:30 | XMS_ITS | Encounter Summary ---
Author Organization [facility] [place] [address] Care Team Providers Care Windows Systems Administrator Name Role Phone Suzie Mcintyre SACHA Primary Care Provider [phone] Encounter Details Date Type Department Care Team (Late st Contact Info) Description 02/19/2017 [place] [address] Luis Michael Jr., MD [facility] [place] [address] Social History Tobacco Use Types Packs/Day Years [...] 3:30 PM EST Office [place] [address] Tarik Henry MD [facility] [place] [address] 09/22/2024 7:00 AM [place] [address] Luis Michael Jr., MD [facility] [place] [address] 09/22/2024 8:00 AM EST [place] [address] Luis Michael Jr., MD [facility] [place] [address] documented as of this encounter Visit Diagnoses Not on filedocumented in this encounter Care Teams Windows Systems Administrator Relationship Specialty Start Date End Date Suzie Mcintyre APRN PCP - General Family Medicine 02/28/17 06/26/17 documented as of this encounter
--- OUTSIDE RECORDS SUMMARY | 2024-07-20 18:30 | XMS_ITS | Encounter Summary ---
Author Organization [facility] Address [facility] [place] [address] Care Team Providers Care Customer Solutions Coordinator Name Role Phone Monica Garcia MD Primary Care Provider [phone] Encounter Details Date Type Department Care Team (Latest Contact Info) Description 08/02/2016 3:34 PM EST - 08/02/2016 11:59 PM [facility] [place] [address] Rosey Crabtree MD [facility] OBSTETRICS & [place] [address] Visit for screening mammogram Discharge Disposition: Home [...] 08/24/2010 estradiol 0.1 mg/24 hr Patch Semiweekly apply 1 patch two times a week as directed 8 patch 11 07/27/2016 06/18/2017 NASONEX 50 mcg/actuation [place], Non-Aerosol 0 05/18/2016 06/11/2018 levonorgestrel (MIRENA) 20 mcg/24 hr (5 years) IUD 1 each by Intrauterine route once. Lot [id number] 05/01/2016 05/01/2021 omeprazole (PRILOSEC) 20 mg Capsule, Delayed Release(E.C.) PRN 0 03/22/2016 08/06/2018 ondansetron (ZOFRAN) 4 mg Tablet take 1 tablet by mouth every 6 hours if needed 0 03/20/2016 04/09/20 fluconazole (DIFLUCAN) 150 mg Tablet take 1 tablet by mouth if needed for SYMPTOMS OF YEAST VAGINITIS 0 01/31/2016 03/13/2017 NIFEdipine (ADALAT CC) 30 mg Tablet Sustained [...] EST Office [place] [address] Tarik Henry MD [facility] DR [place] [address] 09/22/2024 7:00 AM [place] [address] Luis Michael Jr., MD [facility] [place] [address] 09/22/2024 8:00 AM EST [place] [address] Luis Michael Jr., MD [facility] [place] [address] documented as of this encounter Procedures Procedure Name Priority Date/Time Associated Diagnosis Comments MAMMO SCREENING CAD AND ANTHONY BILATERAL Routine 08/02/2016 3:48 PM EST Visit for screening mammogram documented in this encounter Results * Mammo Screen CAD and Anthony Bilat (Generic) (08/02/2016 3:48 PM EST) Anatomical Region Laterality Modality Breast Bilateral Mammography Narrative 08/03/2016 8:27 AM EST BILATERAL MAMMOGRAPHY [...] No mammographic evidence of malignancy. RECOMMENDATION: The [employer] and The Society of Breast Imaging recommend annual screening beginning at age 40 for the general female population. Screening should continue as long as a woman is in good health and is expected to live 10 more years or longer. All women should be familiar with the known benefits, limitations, and potential harms linked to breast cancer screening. They should also know how their breasts normally look and feel and report any breast changes to a health care provider right away. Some women - because of their family history, a genetic tendency, or certain other factors - should be screened with MRIs along with mammograms. (The number of women who fall into this category is very small.) The patient and health care provider should discuss the patient history and decide if earlier screening and breast MRI are appropriate. A result letter has been sent to this patient by the [facility]. BIRADS CATEGORY 1: NEGATIVE Rosey Crabtree MD IMG MAMMO ORDERABLES documented in this encounter Visit Diagnoses Diagnosis Visit for screening mammogram Other screening mammogram documented in this encounter Care Teams Customer Solutions Coordinator Relationship Specialty Start Date End Date Monica Garcia MD [address] [place] [address] PCP - General 01/06/13 02/27/17 documented as of this encounter
--- OUTSIDE RECORDS SUMMARY | 2024-07-20 18:30 | XMS_ITS | Encounter Summary ---
Author Organization [facility] [place] [address] Care Team Providers Care Food And Beverage Checker Name Role Phone HectorCindySarah Jeramie GONCALVES Primary Care Provider [phone] Encounter Details Date Type Department Care Team (Latest Contact Info) Description 08/05/2017 8:34 AM EST - 08/05/2017 11:59 PM [facility] [place] [address] Ida Ron APRN [facility] OBSTETRICS & [place] [address] Encounter for screening mammogram for breast cancer [...] azelastine (ASTELIN) 137 mcg (0.1 %) Aerosol, [place] as needed. 0 06/17/2017 SUMAtriptan (IMITREX) 100 [...] mouth every morning. 06/11/2018 NASONEX 50 mcg/actuation [place], Non-Aerosol 0 05/18/2016 06/11/2018 levonorgestrel (MIRENA) 20 mcg/24 hr (5 years) IUD 1 each by Intrauterine route once. Lot [id number] 05/01/2016 05/01/2021 omeprazole (PRILOSEC) 20 mg Capsule, [...] 3:30 PM EST Office [place] [address] Tarik Henry MD [facility] [place] [address] 09/22/2024 7:00 AM EST [place] [address] Luis Michael Jr., MD [facility] [place] [address] 09/22/2024 8:00 AM EST Office [place] [address] Luis Michael Jr., MD [facility] [place] [address] documented as of this encounter Procedures Procedure Name Priority Date/Time Associated Diagnosis Comments MAMMO SCREENING CAD AND ANTHONY BILATERAL Routine 08/05/2017 8:44 AM EST Encounter for screening mammogram for breast cancer documented in this encounter Results * Mammo Screen CAD and Anthony Bilat (Generic) (08/05/2017 8:44 AM EST) Anatomical Region Laterality Modality Breast Bilateral Mammography Narrative 08/05/2017 9:17 AM EST BILATERAL MAMMOGRAPHY [...] No mammographic evidence of malignancy. RECOMMENDATION: The [place] [employer] and The Society of [...] cancer documented in this encounter Care Teams Food And Beverage Checker Relationship Specialty Start Date End Date Sarah Young APRN [address] [place] [address] PCP - General Family Medicine 06/27/17 05/15/18 documented as of this encounter
--- OUTSIDE RECORDS SUMMARY | 2024-07-20 18:30 | XMS_ITS | Encounter Summary ---
Author Organization [facility] [place] [address] Care Team Providers Care Dot Etcher Name Role Phone Doreen Larios Primary Care Provider + Encounter Details Date Type Department Care Team (Latest Contact Info) Description 06/11/2018 3:30 PM EDT Office [place] [address] Ferdinand Pennington Jr., MD [facility] [address] History of nephrolithiasis Social History Tobacco Use Types Packs/Day Years [...] in this encounter Progress Notes * Ferdinand Pennington Jr., MD - 06/11/2018 3:30 PM EDT HPI Ms. Jessica Gtz returns for follow up regarding reported hematuria with history of urolithiasis. She is s/p SWL in 2007 and left ureterscopy in 07/2010. Although ultrasounds have suggested a4-5 mm left lower pole stone, CT confirmed no residual stone. In 2017 after reported hematuria, sheunderwent CT urogram which showed no evident abnormality [...] today. This reveals no evidenceof hydronephrosis, hydroureter, or new stones. Mild right [...] bladder distension. We discussed further diagnostic options including repeat CT urogram or endoscopic inspection; she is content to simply monitor with annual renal u/s. documented in this encounter Plan of Treatment Upcoming Encounters Date Type Department Care Team (Late st Contact Info) Description 08/07/2024 3:30 PM EST Office [place] [address] Tarik Henry MD [facility] [place] [address] 09/22/2024 7:00 AM EST Appointment [place] [address] Ferdinand Pennington Jr., MD [facility] [place] [address] 09/22/2024 8:00 AM EST Office [place] [address] Ferdinand Pennington Jr., MD [facility] [place] [address] documented as of this encounter Results * [...] 04:04 pm) PATIENT INFO: ID #: ? [id number] ?: ??[birth year] (53 yrs) Name: ? JESSICA Melvin GTZ ?Visit Date: 06/30/2019 03:50 pm PERFORMED BY: Performed By: ? Humberto Donnelly RDMS Attending: ?Shoshana GILL, Celine J. Referred By: ?FERDINAND PENNINGTON JR Location: ? [place] SERVICE(S) PROVIDED: ??URETRO - Retroperitoneal Complete - [id number] ? [id number] INDICATIONS: ??? stones COMPARISON: Ultrasound: Renal / [...] 06/30/2019 04:04 pm) PATIENT INFO: ID #: [id number] : 61 (53 yrs) Name: JESSICA GTZ Visit Date: 06/30/2019 03:50 pm PERFORMED BY: Performed By: Humberto Donnelly RDMS Attending: Celine Anna MD Referred By: FERDINAND PENNINGTON Location: [place] SERVICE(S) PROVIDED: URETRO - Retroperitoneal Complete - [id number] INDICATIONS: ? stones COMPARISON: Ultrasound: Renal / [...] 06/30/2019 04:04 pm Ferdinand Pennington Jr., MD [facility] GEN ORDERAB LES documented in this encounter Visit Diagnoses Diagnosis History of nephrolithiasis Personal history of urinary calculi History of nephrolithiasis Personal history of urinary calculi documented in this encounter Care Teams Dot Etcher Relationship Specialty Start Date End Date Doreen Larios PA PCP - General Family Medicine 05/16/18 06/22/18 documented as of this encounter
--- OUTSIDE RECORDS SUMMARY | 2024-07-20 18:30 | XMS_ITS | Encounter Summary ---
Author Organization [facility] [place] [address] Care Team Providers Care Supervisor Coin Machine Name Role Phone Suzie Mcintyre APRN Primary Care Provider [phone] Encounter Details Date Type Department Care Team (Late st Contact Info) Description 06/18/2017 Orders Only Obstetrics [place] [address] Aylin Mariscal, KEON Social History Tobacco Use Types Packs/Day Years [...] EST Office [place] [address] Tarik Henry MD [facility] [place] [address] 09/22/2024 7:00 AM EST [place] [address] Luis Michael Jr., MD [facility] [place] [address] 09/22/2024 8:00 AM EST [place] [address] Luis Michael Jr., MD [facility] [place] [address] documented as of this encounter Visit Diagnoses Not on filedocumented in this encounter Care Teams Supervisor Coin Machine Relationship Specialty Start Date End Date Suzie Mcintyre APRN PCP - General Family Medicine 02/28/17 06/26/17 documented as of this encounter
--- OUTSIDE RECORDS SUMMARY | 2024-07-20 18:30 | XMS_ITS | Encounter Summary ---
Author Organization [facility] [place] [address] Care Team Providers Care Field Service Supervisor Name Role Phone Suzie Mcintyre SACHA Primary Care Provider [phone] Encounter Details Date Type Department Care Team (Latest Contact Info) Description 03/15/2017 2:45 PM EDT Laboratory Appointment Lab [address] [place] [address] Nephrolithiasis Social History Tobacco Use Types Packs/Day [...] 3:30 PM EST Office [place] [address] Tarik Henry MD [facility] [place] [address] 09/22/2024 7:00 AM EST Appointment [place] [address] Luis Michael Jr., MD [facility] [place] [address] 09/22/2024 8:00 AM EST Office Visit Urology at [facility] [place] [address] Luis Michael Jr., MD [facility] [place] [address] documented as of this encounter Procedures Procedure Name Priority Date/Time Associated Diagnosis Comments BASIC METABOLIC PANEL STAT 03/15/2017 2:36 PM EDT Nephrolithiasis documented in this encounter Results * Basic Metabolic Panel (non-fasting) (03/15/2017 2:36 PM EDT) Glucose 93 65 - 199 mg/dL [facility] Comment:Diabetes: >=200 mg/d L plus symptoms Blood Urea Nitrogen 15 8 - 18 mg/dL [facility] Creatinine 0.82 0.70 - 1.20 mg/dL [facility] Comment: Please note that the pediatric reference intervals supplied above were not validated at [facility] [place]. Results from pediatric patients should be interpreted in conjunction to the patient's age, height and muscle mass. Sodium 137 135 - 145 mmol/L [facility] Potassium 4.1 3.5 - 5.0 mmol/L [facility] Comment: Please note: ??Patients with WBC >100,000 may have falsely elevated Potassium levels. ??For accurate Potassium quantification in these patients send serum separator tube (gold top) for subsequent determinations. ??Contact the Clinical Chemistry Laboratory if there are any questions. Chloride 101 98 - 107 mmol/L [facility] Carbon Dioxide 24 22 - 31 mmol/L [facility] Anion Gap 12 5 - 15 mmol/L [facility] Calcium 9.3 8.5 - 10.5 mg/dL [facility] Est Glomerular Filtration Rate >60 >=60 [facility] Comment: This estimated GFR (eGFR) value was calculated using the MDRD equation which has been validated on patients between the ages of 18 and 70. The MDRD should not be used to assess kidney function in patients < 18 years of age or in patients with extremes of body mass, or in patients with acute kidney failure. This value should be multiplied by 1.2 for patients. For further information please copy and paste the following links into your internet browser. http://[employer]/DHnkdep [email or web address]://[employer] Care [employer]/DHMCnkf Blood specimen (specimen) 03/15/2017 2:36 PM EDT 03/15/2017 2:47 PM EDT Narrative Resulting Agency Comment Spec In Lab Luis Michael Jr., MD [place] [address] documented in this encounter Visit Diagnoses Diagnosis Nephrolithiasis Calculus of kidney documented in this encounter Care Teams Field Service Supervisor Relationship Specialty Start Date End Date Suzie Mcintyre APRN PCP - General Family Medicine 02/28/17 06/26/17 documented as of this encounter
--- OUTSIDE RECORDS SUMMARY | 2024-07-20 18:30 | XMS_ITS | Encounter Summary ---
Author Organization [facility] [place] [address] Care Team Providers Care Corporate Attorney Name Role Phone Suzie Mcintyre SACHA Primary Care Provider [phone] Reason for Visit * Reason Comments Hematuria Encounter Details Date Type Department Care Team (Late st Contact Info) Description 04/09/2017 11:00 AM EDT Office [place] [address] Luis Michael Jr., MD [facility] [place] [address] Microscopic hematuria Social History Tobacco Use Types Packs/Day Years [...] AM EDT documented as of this encounter Procedure Notes * Luis Michael Jr., MD - 04/09/2017 11:00 [...] was entered and inspected. A small, overall smoothraised lesion was noted postero-medial to right ureteral [...] EST Office Visit Orthopaedics at [place] [phone] Tarik Henry MD [facility] DR [place] [address] 09/22/2024 7:00 AM EST Appointment Ultrasound at [place] [phone] Luis Michael Jr., MD [facility] [place] [address] 09/22/2024 8:00 AM EST Office [place] [address] Luis Michael Jr., MD [facility] [place] [address] documented as of this encounter Procedures Procedure Name Priority Date/Time Associated Diagnosis Comments CYSTOSCOPY Routine 04/09/2017 10:36 AM EDT History of renal stone documented in this encounter Visit Diagnoses Diagnosis Microscopic hematuria documented in this encounter Care Teams Corporate Attorney Relationship Specialty Start Date End Date Suzie Mcintyre APRN PCP - General Family Medicine 02/28/17 06/26/17 documented as of this encounter
--- OUTSIDE RECORDS SUMMARY | 2024-07-20 18:30 | XMS_ITS | Encounter Summary ---
Author Organization [facility] [place] [address] Care Team Providers Care Product Evangelist Name Role Phone Doreen Larios Primary Care Provider + Encounter Details Date Type Department Care Team (Late st Contact Info) Description 06/10/2018 Orders [place] [address] Ferdinand Pennington Jr., MD [facility] [place] [address] Nephrolithiasis Social History Tobacco Use Types Packs/Day [...] 3:30 PM EST Office [place] [address] Tarik Henry MD [facility] ORTHOPAED[place] [address] 09/22/2024 7:00 AM EST Appointment [place] [address] Ferdinand Pennington Jr., MD [facility] [place] [address] 09/22/2024 8:00 AM EST Office [place] [address] Ferdinand Pennington Jr., MD [facility] [place] [address] documented as of this encounter Results * US Retroperitoneal Complete (06/11/2018 3:02 PM EDT) Anatomical Region Laterality Modality Abdomen Ultrasound 06/11/2018 3:00 PM EDT Impressions 06/11/2018 3:14 PM EDT ??No nephrolithiasis. New mild right pelvic caliectasis. Bladder is distended. Short segments of both distal ureters are visualized. This may be secondary to bladder volume or peristalsis. ?Mallika Galindo MD Electronically Signed Final Report ?? 06/11/2018 03:13 pm Narrative 06/11/2018 3:14 PM EDT Renal ?(Signed Final 06/11/2018 03:13 pm) PATIENT INFO: ID #: ? [id number] ?: ??[birth year] (52 yrs) Name: ? JESSICA ALBRIGHT ?Visit Date: 06/11/2018 03:00 pm PERFORMED BY: Performed By: ? Chetna Hedrick RDMS Attending: ?Mallika Galindo MD Referred By: ?FERDINAND PENNINGTON JR Location: ? [place] SERVICE(S) PROVIDED: ??URETRO - Retroperitoneal Complete - [id number] ? [id number] INDICATIONS: ??h/o renal stones; eval interval change COMPARISON: Ultrasound: 03/13/18. CT scan: 02/26/17. RIGHT KIDNEY: Size (cm) ?L: ??10.1 Cortical Thickness: ?Normal Cortical Echogenicity: ?? Normal Hydronephrosis: ?Mild pelviectasis LEFT KIDNEY: Size (cm) ?L: ??10.2 Cortical Thickness: ?Normal Cortical Echogenicity: ?? Normal Hydronephrosis: ?No sonographic evidence URINARY BLADDER: Right Urinary Jet: Visualized Left Urinary Jet: ??Visualized Pre-void (cm) ? L: ??7.5 ? AP: ??5.6 ? TV: ??10.3 Vol (ml): ?226.5 Comment: ?Distended, normal contour Procedure Note Mallika Galindo MD - 06/11/2018 Renal (Signed Final 06/11/2018 03:13 pm) PATIENT INFO: ID #: [id number] : [birth year] (52 yrs) Name: JESSICA ALBRIGHT Visit Date: 06/11/2018 03:00 pm PERFORMED BY: Performed By: Mellissa Hedrick RDMSgail Attending: Mallika Galindo MD Referred By: FERDINAND PENNINGTON Location: [place] SERVICE(S) PROVIDED: URETRO - Retroperitoneal Complete - [id number] INDICATIONS: h/o renal stones; eval interval change [...] may be secondary to bladder volume or peristalsis. Mallika Galindo MD Electronically Signed Final Report 06/11/2018 03:13 pm Ferdinand Pennington Jr., MD IMG US GEN ORDERAB LES documented in this encounter Visit Diagnoses Diagnosis Nephrolithiasis Calculus of kidney Nephrolithiasis Calculus of kidney documented in this encounter Care Teams Product Evangelist Relationship Specialty Start Date End Date Doreen Larios PA PCP - General Family Medicine 05/16/18 06/22/18 documented as of this encounter
--- OUTSIDE RECORDS SUMMARY | 2024-07-20 18:30 | XMS_ITS | Encounter Summary ---
Author Organization [facility] [place] [address] Care Team Providers Care Special Education Associate Name Role Phone Monica Garcia MD Primary Care Provider [phone] Encounter Details Date Type Department Care Team (Late st Contact Info) Description 02/21/2017 [place] [address] Elliot Tate MD [facility] [place] [address] Social History Tobacco Use Types Packs/Day Years [...] encounter Miscellaneous Notes * Telephone Encounter - Elliot Alberto MD - 02/21/2017 11:37 AM EDT Jessica Gtz called. She is known to us for her history of stones. She is starting to have increasing flank pain (like 3-4/10) and would like to assess her current stone burden. She has an appt with us in March. She is not having fevers/chills/hematuria. I ordered a KUB and U/S and will get herin to clinic sooner than March. She knows to go to an ED for severe pain, fevers, etc. documented in this encounter Plan of Treatment Upcoming Encounters Date Type Department Care Team (Late st Contact Info) Description 08/07/2024 3:30 PM EST Office Visit [place] [address] Tarik Henry MD [facility] [place] [address] 09/22/2024 7:00 AM EST Appointment [place] [address] Ferdinand Michael Jr., MD [facility] [address] 09/22/2024 8:00 AM EST Office [place] [address] Ferdinand Michael Jr., MD [facility] [place] [address] documented as of this encounter Results * XR Abdomen 1 [...] IMPRESSION No radiopaque urinary tract calculus identified. Ferdinand Michael Jr., MD IMG DX ORDERABLES * US Retroperitoneal Complete (03/13/2017 2:55 PM [...] 05:40 pm) PATIENT INFO: ID #: ? [id number] ?: ??[birth year] (51 yrs) Name: ? JESSICA GTZ ?Visit Date: 03/13/2017 02:56 pm PERFORMED BY: Performed By: ? Chetna Hedrick RDMS Attending: ?Luna GILL, Genie Dumont Resident: ? Chula GILL, Kip Rojas Referred By: ?FERDINANDAMADOR MICHAEL Location: ? [place] SERVICE(S) PROVIDED: ??URETRO - Retroperitoneal Complete - [id number] ? [id number] INDICATIONS: ??pt with history of stones, eval [...] 03/13/2017 05:40 pm) PATIENT INFO: ID #: [id number] : [birth year] (51 yrs) Name: JESSICA GTZ Visit Date: 03/13/2017 02:56 pm PERFORMED BY: Performed By: Chetna Hedrick RDMS Attending: Genie Carrasco MD Resident: Kip Quiros MD Referred By: FERDINAND MICHAEL JR Location: [place] SERVICE(S) PROVIDED: URETRO - Retroperitoneal Complete - [id number] INDICATIONS: pt with history of stones, eval [...] kidney documented in this encounter Care Teams Special Education Associate Relationship Specialty Start Date End Date Monica Garcia MD [address] [place] [address] PCP - General 01/06/13 02/27/17 documented as of this encounter
--- OUTSIDE RECORDS SUMMARY | 2024-07-20 18:30 | XMS_ITS | Encounter Summary ---
Author Organization [facility] [place] [address] Care Team Providers Care Intake Manager Name Role Phone Suzie Mcintyre SACHA Primary Care Provider [phone] Encounter Details Date Type Department Care Team (Late st Contact Info) Description 04/18/2017 1:00 PM EDT - 04/18/2017 2:30 PM EDT [place] [phone] Luis Michael Jr., MD [facility] [place] [address] CYSTO, FULGURATION\BLADDER LESION\W\WO BX\LESS THAN 0.5CM (WRVU 4.05) Social History Tobacco Use Types Packs/Day Years [...] this encounter Discharge Instructions * Discharge Instructions* Belle Peñaloza RN - 04/18/2017 2:30 PM EDT [...] of infection: increasing redness, swelling, foul drainage, if occurs contact M.D. Patients who have had endotrachial [...] which usually goes away in 12-24 hours. * Patient Instructions* Neil Perez MD - 04/18/2017 12:31 PM EDT [...] clear of blood, which may take up to seven days. URINATION You have a Kay catheter [...] surgery to enter or exit your vehicle comfortably, or if you are too sore to easily [...] Tablet 5 mg daily. 0 01/27/2017 06/27/2017 phenazopyridine (PYRIDIUM) 100 mg Tablet Take 1 tablet by mouth 3 times daily for 2 days. 6 tablet 04/18/2017 04/20/2017 linaCLOtide (Linzess) 72 mcg Capsule Take 72 mcg by mouth. One time per week 02/12/2022 donepezil (ARICEPT) 10 mg Tablet Take 10 mg by mouth every morning. 06/11/2018 estradiol 0.1 mg/24 hr Patch Semiweekly apply 1 patch two times a week as directed 8 patch 11 07/27/2016 06/18/2017 NASONEX 50 mcg/actuation [place], Non-Aerosol 0 05/18/2016 06/11/2018 levonorgestrel (MIRENA) 20 mcg/24 hr (5 years) IUD 1 each by Intrauterine route once. Lot [id number] 05/01/2016 05/01/2021 omeprazole (PRILOSEC) 20 mg Capsule, Delayed Release(E.C.) PRN 0 03/22/20162017 NIFEdipine (ADALAT CC) 30 mg Tablet Sustained Release Take 30 mg by mouth daily. 08/06/2018 cetirizine (ZYRTEC) 10 mg tablet Take 10 mg by mouth daily. 02/12/2022 fluticasone-salmetero l (ADVAIR) 500-50 mcg/dose diskus inhaler Inhale 1 puff into the lungs 2 times daily as needed (winter time). 06/27/2017 tacrolimus (PROTOPIC) 0.1 % ointment 1 Appl(s) Top Twice daily 08/24/2010 02/12/2022 KETOCONAZOLE (NIZORAL TOP) Apply topically. 08/24/2010 02/12/2022 documented as of this encounter Progress Notes * Belle Peñaloza RN - 04/18/2017 3:22 PM EDT Patient alert and oriented, vital signs stable. Reviewed discharge instructions; patient and her in-laws verbalized understanding. Copy of instruction sheet with contact numbers for questions/concerns with patient. Pain assessment documented. Patient escorted out of department via wheelchair with KAYLI Fisher. documented in this encounter H&P Notes * Neil Perez MD - 04/18/2017 12:30 PM [...] History: Procedure Laterality Date ??? CREATED BY ExceleraJosephSBrianne(MSUROL) Procedure Date: 01/16/2008 ??? KNEE SURGERY 03/01/14 [...] 8 patch 11 ??? NASONEX 50 mcg/actuation Pe[place]ic, Non-Aerosol 0 ??? SUMAtriptan (IMITREX) 100 mg Tablet as needed for Migraine. 1 ??? levonorgestrel (MIRENA) 20 mcg/24 hr (5 years) IUD 1 each by Intrauterine route once. Lot [id number] ??? multivitamin (THERAGRAN) tablet Take 1 tablet [...] were answered to the patient's satisfaction. Proceed with surgery. documented in this encounter Miscellaneous Notes * Op Note - Neil Perez MD - 04/18/2017 1:31 PM EDT [facility] Operative Note Patient Name: Stacy Albright : [id number] MR#: [id number] Case Date: 04/18/2017 Surgeon: Surgeon(s) and Role: [...] holding area. Consent was verified. The patient wastaken to the operating room and placed supine on the operating table. General anesthesia was induced. The patient was then moved to the lithotomy [...] foreign bodies, or stones. The ureteral orifices were noted to be in orthotopic position. [place] biopsy forceps were used to resect the lesion completely; tissue was sent to Pathology. The resection site was fulgurated completely. Efflux was notedfrom the RIGHT ureteral orifice at the end of [...] procedure. Infection Bundle used? N/A Plan: Dr. Fernanda to call with pathology results. RTC 6 mos with US prior. * Brief Op Note - Neil Perez MD - 04/18/2017 1:30 PM EDT Brief Operative Note Patient Name: Stacy Albright : [id number] MR#: [id number] Case Date: 04/18/2017 Surgeon: Surgeon(s) and Role: [...] 3:30 PM EST Office [place] [address] Tarik Henry MD [facility] [place] [address] 09/22/2024 7:00 AM EST [place] [address] Luis Michael Jr., MD [facility] [place] [address] 09/22/2024 8:00 AM EST Office [place] [address] Luis Michael Jr., MD [facility] [place] [address] documented as of this encounter Procedures Procedure Name Priority Date/Time Associated Diagnosis Comments SURGICAL PATHOLOGY REPORT Routine 04/18/2017 1:17 PM EDT SPECIMEN TO PATHOLOGY Routine 04/18/2017 1:17 PM EDT CYSTO, FULGURATION\BLADDER LESION\W\WO BX\LESS THAN 0.5CM (WRVU 4.05) Yes 04/18/2017 12:46 PM EDT small bladder lesion documented in this encounter Results * Surgical Pathology Report (04/18/2017 1:17 PM EDT) Final Diagnosis [id number] ? Location: [facility]; The signing pathologist has (i) examined the relevant preparation(s) for the specimen(s) and (ii) rendered or confirmed the diagnosis(es). . ?Surgical Pathology DIAGNOSIS Bladder lesion: ?? Fragment of benign urothelium and lamina propria ?? with focal atypia. CR-0 Electronically signed by: ??Luis Enrique GILL, Kole Braswell Verified: ??04/23/2017 ?Pathologist DISCUSSION Deeper levels were obtained. CLINICAL INFORMATION Specimen Submitted: A - Bladder lesion Clinical History: Small bladder lesion Clinical Diagnosis: Same SPECIMEN PROCESSING A - Labeled/Fixativ e: Bladder lesion, fresh. Quantity/Size: Single, 0.1 cm. Tissue Description: ??Soft, pink tissue fragment ??. Sections/Proces sing: (T1) ??sns 04/23/2017 1:54 PM EDT [facility] URINARY BLADDER STRUCTURE / Unknown 04/18/2017 1:17 PM EDT 04/18/2017 1:17 PM EDT Luis Michael Jr., MD PATHOLOGY/CYTOLOGY ORDERABLES Performing Organization Address City/[facility]/ZIP Co de Phone Number [facility] [place] [address] * Specimen to Pathology (surgical or derm) (04/18/2017 1:17 PM EDT) AP Specimen 04/18/2017 1:17 PM EDT 04/18/2017 1:17 PM EDT Narrative [facility] - 04/18/2017 1:17 PM EDT Specimen requisition ordered. ??Separate Pathology report to follow Luis Michael Jr., MD PATHOLOGY/CYTOLOGY ORDERABLES Performing Organization Address City/[facility]/ZIP Co de Phone Number [facility] [place] [address] documented in this encounter Visit Diagnoses Not on filedocumented in this encounter Administered Medications Inactive Administered Medications - up to 3 most recent administrations Medication Order MAR Action Action Date Dose Rate Site promethazine (PHENERGAN) injection 12.5 mg 12.5 mg, Intravenous, EVERY 30 MIN PRN, Nausea, Starting on Shanta 04/18/17 at 1344, 2 doses, Until Shanta 04/18/17 at 1523, VESICANT - Dilute with a minimum of 10 mL saline. LARGE VEIN only. Inject over 10 minutes into the farthest port of a running IV infusion. Remain with the patient and STOP infusion immediately if patient reports burning. Avoid extravasation. If multiple antiemetics are ordered, use ondansetron first and if ineffective use prochlorperazine second and if ineffective use promethazine., PACU Recovery Given 04/18/2017 1:46 PM EDT 6.25 mg documented in this encounter Active and Recently Administered Medications Times are shown in EDT. Scheduled Medication Order 04/16/2017 04/17/2017 04/18/2017 ceFAZolin (ANCEF) 2g in dextrose 5% 100 mL (COMPLETED) 2 g, Intravenous, PROGRAM PROJECT ANALYST TO O.R., 1 dose, On Shanta 04/18/17 at 0700, Administer over 30 Minutes, Indication for (Active or Suspected): Prophylaxis 1308 (Given - Provid er: Romy Ballesteros MD) Continuous Medication Order 04/16/2017 04/17/2017 04/18/2017 lactated Ringers infusion 1,000 mL (CANCELED) 1,000 mL, at 100 mL/hr, Intravenous, CONTINUOUS, Starting on Shanta 04/18/17 at 1215, Until Shanta 04/18/17 at 1523, Day of Surgery (Day of Procedure) 1247 (New Bag - Prov ider: Romy Ballesteros MD)1334 (Anesthesia Volume Adjustment - Provider: Romy Ballesteros MD) PRN Medication Order 04/16/2017 04/17/2017 04/18/2017 promethazine (PHENERGAN) injection 12.5 mg (CANCELED) 12.5 mg, Intravenous, EVERY 30 MIN PRN, Nausea, Starting on Shanta 04/18/17 at 1344, 2 doses, Until Shanta 04/18/17 at 1523, VESICANT - Dilute with a minimum of 10 mL saline. LARGE VEIN only. Inject over 10 minutes into the farthest port of a running IV infusion. Remain with the patient and STOP infusion immediately if patient reports burning. Avoid extravasation. If multiple antiemetics are ordered, use ondansetron first and if ineffective use prochlorperazine second and if ineffective use promethazine., PACU Recovery 1346 (Given - Provid er: Belle Peñaloza RN) documented in this encounter Care Teams Intake Manager Relationship Specialty Start Date End Date Suzie Mcintyre APRN PCP - General Family Medicine 02/28/17 06/26/17 documented as of this encounter
--- OUTSIDE RECORDS SUMMARY | 2024-07-20 18:30 | XMS_ITS | Encounter Summary ---
Author Organization [facility] Address [facility] [place] [address] Care Team Providers Care Food Products Sales Representative Name Role Phone Monica Garcia MD Primary Care Provider [phone] Reason for Visit * Reason Comments Cognitive Problems neuropsych eval * Psychiatric (Routine) - Specialty Diagnoses / Procedures Referred By Contac t Referred To Contact Psychiatry Diagnoses concerns with recent memory loss Procedures PRO NEUROPSYCHOLOGICAL TESTING,PER HOUR BY INTERIOR SPECIALIST AIRCRAFT ARMAMENT MECHANIC Testing Monica Garcia MD [address] [place] [address] [facility] [address] [place] [address] Referral ID Status Reason Start Date Expiration Date V isits Requested Visits Authorized [id number] 04/16/2016 04/16/2017 1 1 Encounter Details Date Type Department Care Team (Latest Contact Info) Description 09/12/2016 8:30 AM EST Office Visit Psychiatry [place] [address] Salvador Palmer, PhD [facility] [place] [address] Mild neurocognitive disorder Social History Tobacco Use Types Packs/Day Years [...] as of this encounter Progress Notes * Salvador Palmer, PhD - 09/12/2016 8:30 AM EST CONFIDENTIAL NEUROPSYCHOLOGICAL EVALUATION Patient's Name: Stacy Albright A#: [id number] Date of Evaluation: 09/12/2016 Age: 51 years Date of : 1965 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 REASON FOR REFERRAL AND BACKGROUND: This is Stacy Albright???s first [place] neuropsychological evaluation. She was referred in the contextof a history of subjective cognitive decline. As [...] information. She also endorsed slowed processing speed and longstanding difficulties with recalling people???s names, attention and concentration, and wordfinding difficulty, which have gradually worsened in the last couple of years. She reported that her executive functioning, receptive language, visuospatial and motor abilities are intact. Functionally, she reported being able to complete basic and instrumental activities of daily living (ADLs) with out assistance, although she utilizes compensatory strategies (e.g., [...] of psychiatric diagnosis, hospitalization or suicidal ideation. She reported no current alcohol consumption and has no history of excessive alcohol use resulting in significant problems (e.g., legal, medical, social). She indicated having no history of illicit substance use or tobacco use. Family Medical and Psychiatric History: Family history is notable for Alzheimer???s disease, cancer, hypertension, angina, myocardial infarction, epilepsy, unknown learning disorder, depression, and anxiety. Developmental, Educational and Occupational History: Mrs. Albright reported that to her knowledge hergestation and were uncomplicated, and she reached developmental milestones at appropriate ages. She graduated from high school and denied any [...] medications at the time of the evaluation: montelukast (Singular) 10mg, estradiol 0.1mg, Nasonex 50mcg, cetirizine (Zyrtec) 10mg, omeprazole (Prilosec) 20mg, nifedipine (Adalat CC) 30mg, trans q, sumatriptan (Imitrex) 100mg, S ymbicort 160mg, albuterol (Accuneb) 0.63mg/3mL, as well as supplements including Unforgettables, CellWise, Florify, Vitality Essential, and Activate Immune Complex. BEHAVIORAL OBSERVATIONS: Mrs. Albright arrived on time for her appointment and was casually dressed and appropriately groomed.She was oriented to person, place, time, and situation. She wore corrective lenses throughout the evaluation. Gross motor functions were intact on informal observation. Spontaneous speech was generally fluent with normal prosody, with only occasional word finding difficulty. Receptive language appeared intact, and she was able to understand test instructions without difficulty. Thought processes were generally linear and coherent, and of normal content. She reported her mood during the interview as ???fine?? and affect was largely euthymic. She was cooperative with the interview and testing,appeared motivated to perform to the best of her abilities, and scores on performance validity measures were within expectations. Thus, the present results are judged to be a valid reflection of her current level of cognitive functioning. PROCEDURES ADMINISTERED: Clinical Interview; [employer] [Test of Premorbid Functioning (TOPF) and Word Choice (WCT)]; Avila Anxiety Inventory (VLADIMIR); Avila Depression Inventory-II (BDI-II); Sheffield Naming Test (BNT); Brief Visuospatial Memory Test- Revised (BVMT-R); [place] Verbal Learning Test, Second Edition (CVLT-II); Comprehension of Complex Ideational Material (from BDAE; Sheffield Diagnostic Aphasia Examination); Trudy Antony Executive Functioning System (DKEFS, select subtests); Grooved Pegboard Test; Paced Auditory Serial Addition Test (PASAT, Lorenz version); Lateral Dominance Examination; Florentin Complex Figure Test; [place] Making Test; Nima Adult Intelligence Scale - 4th edition (WAIS-IV);Nima Memory Scale, Fourth Edition (WMS-IV, selected subtests); Wisconsin Card Sorting Test (WCST). Total Time Spent in Testing, Interpretation, and Report Writin hours 20 minutes TEST RESULTS: Note: Tests were administered by a analog ic design engineer. Descriptors are based on appropriate normative data [...] Recall 14/36 Low Average Recognition Total Correct 20/24 Average Attention / Executive Function: WAIS-IV Digit Span: Scaled Score (Max. Span) Forward 7 (5) Low Average Backward 9 (5) Average Sequencing 12 (6) High Average Paced Auditory Serial Addition Test: Raw Score 3 sec. pacing 51/60 Average 2 sec. pacing 39/60 Average [place] Making Test: Raw Score (T Score) Part [...] Limits Language: Raw Score BDAE Sentence Comprehension: 12 Average Confrontation Namin/60 Average Visuospatial/Visuoconstruction: Raw Score [...] with a significant (15 point) difference between core verbal (average range) and core perceptual (low average range) abilities. Overall working memory and processing speed abilities were in the [...] was in the low average range, with some benefit from repetition. She was able to independently apply a semantic organiza tion approach during learning across learning trials, as well as a serial order approach (average range). Short- and long-delay recall was in the mildly impaired and borderline range, respectively, without benefit from category cues. Recognition discriminability was in the borderline range; she wasable to correctly recognize 14/16 words (average range), although made nine false positive errors (borderline range). Learning of a display of six geometric figures was in the average range with a gradual learning curve. Her delayed recall was in the high average range and recognition memory was intact; she recalled 6/6 figures with no false positive errors. Recall of a previously copied complex figure was in the average range after brief delay and after a longer delay was in the low average range; recognition of figure elements was in the average range. Overall, she demonstrated weaknesses for retrieval and recognition of non-contextual verbal information, otherwise verbal and visual learning and memory were intact. Attention and Executive Functions: Immediate auditory [...] between word categories, performance fell in the very superior range for switching accuracy, an area of notable strength. Verbal and nonverbal abstract reasoning were in the average and low average range, respectively. On an unstructured problem solving task, 6/6 category sorts were completed (within normal limits), with few perseverative errors, suggesting an intact ability to think flexibly when provided with examiner feedback. Executive functions can also be inferred from the overall approach on the copy trial of a complex figuretest. This was characterized by a somewhat piecemeal approach, with details being draw inaccuratelyor misplaced, which may represent more difficulty with [...] in the average range, was without paraphasic errorsor perceptual distortions, and showed benefit from the provision of phonemic cues (4/5 correct). Overall, assessed expressive and receptive language abilities were within normal limits. Visuospatial/Visuoconstruction: Ability to reproduce two dimensional designs using blocks was in the average range. Solving visual puzzles under time pressure was in the average range. Her copy of a display of six geometric figures was intact (12/12). Copy of a complex figure was in the borderline r antonietta, as noted above. Overall, assessed abilities were generally intact. Sensory-Motor: On the Grooved Pegboard Test, fine motor coordination and speed was in the high average range when using her right (dominant) hand, and in the average range when using her left hand. Questionnaire Measures: On self-report mood screening measures, Mrs. Albright???s pattern of responses indicated no clinical level of symptoms consistent with depression or anxiety. She denied suicidalideation, intent or plan. SUMMARY AND RECOMMENDATIONS: On the current evaluation, Mrs. Albright demonstrated difficulty with her retrieval and recognition memory of non-contextual verbal information, and accurately copying a complex figure due to visuospatial difficulties. Performance was within normal limits for basic attention, processing speed, otherwise for verbal and visual learning and memory, expressive and receptive language, executive functioning, visuospatial abilities and fine motor coordination and speed bilaterally. These findings were seen in the context of average range core verbal and low average range perceptual intellectual abiliti es, euthymic mood, and adequate task persistence. Overall, Mrs. Albright???s pattern of performance is indicative of largely intact neuropsychological performance, with isolated difficulties in an aspect of verbal memory and visuospatial ability. The etiology of her isolated cognitive difficulties and reported problems in everyday life is unclear, there is no clear localization or lateralization. Her memory profile is not consistent with the rapidforgetting typically associated with Alzheimer???s disease. However, her reported memory concern inassociation with observed difficulty with memory on testing [...] and presentation of tests is largely individualized, withbreaks and accommodations provided for the individual???s comfort. Thus, she may experience greaterdifficulty in everyday life. Additionally, her cognitive concerns [...] the information depicted in text or in a ccompanying diagrams/tables. Also, with respect to her verbal [...] to lifestyle issues such as regular physical exercise,healthy nutrition, and stress management, all of which can help promote optimal cognitive functioning. ??? Finally, it is recommended that Mrs. Albright return for neuropsychological re-evaluation in 12-18 months to assess for any changes in her cognition and to further inform differential diagnosis. Thank you for referring Mrs. Albright for neuropsychological evaluation. If you would like additionalinformation, please do not hesitate to contact us at . Christine Raza Psy.D. Salvador Palmer, Ph.D. Post-Doctoral Fellow Clinical Neuropsychologist Neuropsychology Securities UnderwriterHelicopter Repairersoftware engineering supervisor A postdoctoral fellow in neuropsychology was involved in test administration, interpretation, and report development. The interpretation and integration of pertinent clinical information found in this report was directed and verified by the supervising neuropsychologist/licensed clinical psychologist. documented in this encounter Plan of Treatment Upcoming Encounters Date Type Department Care Team (Late st Contact Info) Description 08/07/2024 3:30 PM EST Office [place] [address] Tarik Henry MD [facility] [address] [place] [address] 09/22/2024 7:00 AM [place] [address] Luis Michael Jr., MD [facility] [place] [address] 09/22/2024 8:00 AM EST [place] [address] Luis Michael Jr., MD [facility] [place] [address] documented as of this encounter Visit Diagnoses Diagnosis Mild neurocognitive disorder documented in this encounter Care Teams Food Products Sales Representative Relationship Specialty Start Date End Date Monica Garcia MD [address] [place] [address] PCP - General 01/06/13 02/27/17 documented as of this encounter
--- OUTSIDE RECORDS SUMMARY | 2024-07-20 18:30 | XMS_ITS | Encounter Summary ---
Author Organization [facility] [place] [address] Care Team Providers Care Appliance Worker Name Role Phone Suzie Mcintyre APRN Primary Care Provider [phone] Encounter Details Date Type Department Care Team (Late st Contact Info) Description 03/13/2017 [place] [address] Luis Michael Jr., MD [facility] [address] Social History Tobacco Use Types Packs/Day Years [...] 3:30 PM EST Office [place] [phone] Tarik Henry MD [facility] [place] [address] 09/22/2024 7:00 AM EST [place] [address] Luis Michael Jr., MD [facility] [place] [address] 09/22/2024 8:00 AM EST [place] [address] Luis Michael Jr., MD [facility] [place] [address] documented as of this encounter Visit Diagnoses Not on filedocumented in this encounter Care Teams Appliance Worker Relationship Specialty Start Date End Date Suzie Mcintyre APRN PCP - General Family Medicine 02/28/17 06/26/17 documented as of this encounter
--- OUTSIDE RECORDS SUMMARY | 2024-07-20 18:30 | XMS_ITS | Encounter Summary ---
Author Organization [facility] [place] [address] Care Team Providers Care Medical Social Consultant Name Role Phone CatahoulaSuzie costello Ana GONCALVES Primary Care Provider [phone] Reason for Visit * Reason Comments Follow-up Encounter Details Date Type Department Care Team (Late st Contact Info) Description 04/09/2017 8:30 AM EDT [place] [address] Luis Michael Jr., MD [facility] [place] [address] History of renal stone Social History Tobacco Use Types Packs/Day Years [...] this encounter Patient Instructions * Patient Instructions* Vida Zaldivar LPN - 04/09/2017 8:30 AM EDT Instructions following Cystoscopy Activity: As tolerated by your comfort level. Fluids: You should increase your water today. Avoid coffee, tea and cola. You do not need to [id number] ounces of water today. Urination: You will likely have a small amount of blood in your urine for the next several days. This is normal; however, if you are passing large amounts of blood clots or are unable to void please call our office at [phone] before 5PM or [phone] after hours. Please call if: * you have copious blood in your urine * fevers greater than 101.3 F * you are unable to void The number for questions is [phone] before 5 PM weekdays and [phone] after 5 PM and weekends. Follow-up: with surgery documented in this encounter Progress Notes * Luis Michael Jr., MD - 04/09/2017 8:30 [...] u/a showed <1rbc/hpf. In light of her reportof witnessed spotting, we discussed could still proceed with cystoscopy to complete suspected hematuria evaluation, as well as watchful waiting. She wishes to proceed with cystoscopy. If negative cysto, I also suggested she undergo SHOT PACKER evaluation to assess for possible SHOT PACKER source for bloody spotting. In the interval [...] 3:30 PM EST Office Visit Orthopaedics at [place] [phone] Tarik Henry MD [facility] [place] [address] 09/22/2024 7:00 AM EST Appointment Ultrasound at [place] [phone] Luis Michael Jr., MD [facility] [place] [address] 09/22/2024 8:00 AM EST Office [place] [phone] Luis Michael Jr., MD [facility] [place] [address] documented as of this encounter Results * Cystoscopy (04/09/2017 10:36 AM EDT) Narrative Luis Michael Jr., MD - 04/09/2017 10:36 AM EDT Luis Michael Jr., MD ? 04/09/2017 10:36 AM Preoperative Diagnosis: reported hematuria Postoperative Diagnosis: same [...] timeout was performed. ??Flexible cystoscopy was performed. ?? The urethra was without abnormality. ??The bladder was entered and inspected. ??A small, overall smooth raised lesion was noted postero-medial to right ureteral orifice. ??Otherwise, no focal mucosal abnormality was seen. ?? bilateral ureteral orifices were identified, effluxing clear urine. She tolerated the procedure well. We reviewed options; she wishes to proceed with cystoscopic biopsy under anesthesia. This will be scheduled for her. Informed consent reviewed. Luis Mihcael Jr., MD PROCEDURE ORDER MERLE documented in this encounter Visit Diagnoses Diagnosis History of renal stone Personal history of urinary calculi documented in this encounter Care Teams Medical Social Consultant Relationship Specialty Start Date End Date Suzie Mcintyre APRN PCP - General Family Medicine 02/28/17 06/26/17 documented as of this encounter
--- OUTSIDE RECORDS SUMMARY | 2024-07-20 18:30 | XMS_ITS | Encounter Summary ---
Author Organization [facility] [place] [address] Care Team Providers Care Metal Cleaner Name Role Phone Sarah Young SACHA Primary Care Provider [phone] Encounter Details Date Type Department Care Team (Late st Contact Info) Description 06/27/2017 Orders [place] [phone] Cuate Hall MD [facility] [place] [address] Osteoporosis, unspecified osteoporosis type, unspecified pathological fracture [...] 3:30 PM EST Office [place] [phone] Tarik Henry MD [facility] [place] [address] 09/22/2024 7:00 AM EST [place] [phone] Luis Michael Jr., MD [facility] [place] [address] 09/22/2024 8:00 AM EST [place] [address] Luis Michael Jr., MD [facility] [place] [address] documented as of this encounter Results * Calcium (06/27/2017 3:22 PM EDT) Pathologist [facility] Calcium 9.1 8.5 - 10.5 mg/dL [facility] Blood specimen (specimen) 06/27/2017 3:22 PM EDT 06/27/2017 3:29 PM EDT Narrative Resulting Agency Comment Spec In Lab Cuate Hall MD CHEMISTRY ORDERABLES [facility] [place] [address] * Vitamin D, 25-Hydroxy (06/27/2017 3:22 PM EDT) Vitamin D Total 25 OH 32 30 - 100 ng/mL [facility] Comment: Deficient <10 ng/mL Insufficient 10 to 29 ng/mL Sufficient 30 to 100 ng/mL Potential Intoxication >100 ng/mL According to the [place] National Osteoporosis Foundation, Vitamin D concentrations >30 ng/mL are sufficient to protect bone health. ??The National Kidney Foundation has similarly stated that patients with Vitamin D concentrations <30ng/mL should be considered to be insufficient or deficient. http://[employer].MadeiraCloud/nkf-guidelines http://[employer].MadeiraCloud/nejm-VitD The [employer] i[employer] Vitamin D Immunoassay detects both 25-OH Vitamin D2 and 25-OH Vitamin D3, but only a total Vitamin D concentration is reported. Blood specimen (specimen) 06/27/2017 3:22 PM EDT 06/28/2017 7:52 AM EDT Narrative Resulting Agency Comment Spec In Lab Cuate Hall MD CHEMISTRY ORDERABLES Performing Organization Address City/[facility] Co de Phone Number [facility] [place] [address] * PTH (06/27/2017 3:22 PM EDT) Parathyroid Hormone 41 15 - 65 pg/mL [facility] Blood specimen (specimen) 06/27/2017 3:22 PM EDT 06/27/2017 3:29 PM EDT Narrative Resulting Agency Comment Spec In Lab Cuate Hall MD CHEMISTRY ORDERABLES Performing Organization Address [facility] Co de Phone Number [facility] [place] [address] documented in this encounter Visit Diagnoses Diagnosis Osteoporosis, unspecified osteoporosis type, unspecified pathological fracture presence documented in this encounter Care Teams Metal Cleaner Relationship Specialty Start Date End Date Sarah Young APRN [address] [place] [address] PCP - General Family Medicine 06/27/17 05/15/18 documented as of this encounter
--- OUTSIDE RECORDS SUMMARY | 2024-07-20 18:30 | XMS_ITS | Encounter Summary ---
Author Organization [facility] Address [facility] [place] [address] Care Team Providers Care Mother Superior Name Role Phone Suzie Mcintyre SACHA Primary Care Provider [phone] Encounter Details Date Type Department Care Team (Late st Contact Info) Description 04/18/2017 12:47 PM EDT Anesthesia Event [place] [address] Marcelle Marquez MD [facility] [place] [address] Anesthesia Record Procedure Summary Procedure Name Responsible Anesthesiologist Anesthesia Start Time Anesthesia Stop Time CYSTO, FULGURATION\BLADDER LESION\W\WO BX\LESS THAN 0.5CM (WRVU 4.05) (Bladder) Marcelle Marquez MD 04/18/17 1247 04/18/17 1343 Events Date Time Event Comment 04/18/2017 1247 AN Verify 1247 An Start Data 1247 Start 1257 An Induction 1259 An Intubation 1308 Anesthesia Ready 1313 Procedure Start 1334 Extubation/LMA Out 1334 an stop data 1343 Recovery or ICU Handoff Elizabeth ent care was transferred to the destination unit staff after review of the patient's medical history, current anesthetic/surgical status and plan, according to the Provider Handoff Checklist. 1343 Stop 1347 Meds Name Total fentaNYL 25 mcg IV Lidocaine 60 mg Propofol 220 mg Ondansetron 8 mg Dexamethasone 8 mg ceFAZolin (ANCEF) 2g in dextrose 5% 100 mL 2 g Propofol INF 315.84 mg lactated Ringers infusion 1,000 mL 550 m L * Agents Name O2 Air N2O Sevoflurane (et) * Blood No blood administrations on file. Lines, Drains, and Airways Type Details Placement Removal (RETIRED) Peripheral IV Line - Single Lumen 04/18/17; 1212; median cubital vein (antecubital fossa), left; ujnf-tcy-hvhiry catheter system; 20 gauge; Marisol; distraction, intradermal injection; no longer indicated, catheter/device intact, removed per policy/procedure; 04/18/17; 1524 04/18/17 1212 by David Ruffin RN 04/18/17 1524 by Belle Peñaloza RN Supraglottic Mask Ventilation: Ea sy (1); LMA Type: iGel; LMA Size: 3; Removal Date: 04/18/17; Removal Time: 1334 04/18/17 1304 by Romy Ballesteros MD 04/18/17 1334 by Romy Ballesteros MD documented in this encounter Social History Tobacco [...] OR Notes * Anesthesia Postprocedure Evaluation - Romy Ballesteros MD - 04/18/2017 3:30 PM EDT [facility] [place] Department of Anesthesiology Post-procedure Note Patient: Stacy Albright Procedure Summary Date Anesthesia Start Anesthesia Stop Room / Location 04/18/17 1247 1343 [facility] OR [facility] MAIN OR Procedure Diagnosis Surgeon Responsible Provider CYSTO, FULGURATION\BLADDER LESION\W\WO BX\LESS THAN 0.5CM (WRVU 4.05) (N/A Bladder) (small bladder lesion) Luis Michael Jr., MD Chaimberg, Kathleen H, MD All Anesthesia Providers: Anesthesiologist: Marcelle Marquez MD District Associate Judge: Romy Ballesteros MD Last (1hr) Vitals: BP 118/80 (04/18/17 1445) Temp Pulse Resp SpO2 99 % (04/18/17 1500) Patient Location: PACU/[facility] Level of Consciousness: Awake and Alert Pain Management: Satisfactory Analgesia PONV: None Cardiovascular Status: At Baseline and Hemodynamically Stable Respiratory Status: At Baseline and Room Air Postoperative Fluid Status: Intravascular EUvolemia Possible Anesthetic Complications: NONE apparent at time of evaluation Final Primary Anesthesia Type: General (The anesthetic type performed was the same as planned.) Comments: Romy Ballesteros MD * Anesthesia Preprocedure Evaluation - Romy Ballesteros MD [...] History: Procedure Laterality Date ??? CREATED BY [employer] E.S.W[employer]L.(MSUROL) Procedure Date: 01/16/2008 ??? KNEE SURGERY [...] chest tightness over the past few nights. She has not had to use her rescue inhaler [...] 3:30 PM EST Office [place] [phone] Tarik Henry MD [facility] [place] [address] 09/22/2024 7:00 AM EST [place] [address] Luis Michael Jr., MD [facility] [place] [address] 09/22/2024 8:00 AM EST [place] [address] Luis Michael Jr., MD [facility] [place] [address] documented as of this encounter Visit Diagnoses Not on filedocumented in this encounter Administered Medications Inactive Administered Medications - up to 3 most recent administrations Medication Order MAR Action Action Date Dose Rate Site ceFAZolin (ANCEF) 2g in dextrose 5% 100 mL 2 g, Intravenous, PAPER CONE MACHINE TENDER TO O.R., 1 dose, On Shanta 04/18/17 at 0700, Administer over 30 Minutes, Indication for (Active or Suspected): Prophylaxis Given 04/18/2017 1:08 PM EDT 2 g dexamethasone (DECADRON) injection PRN, Starting on Shanta 04/18/17 at 1310, Until Shanta 04/18/17 at 1343, Anesthesia Intra-op, Routine Given 04/18/2017 1:10 PM EDT 8 mg fentaNYL 50 mcg/mL multi-dose injection PRN, Starting on Shanta 04/18/17 at 1257, Until Shanta 04/18/17 at 1343, Pain, Anesthesia Intra-op, Routine Given 04/18/2017 12:57 PM EDT 25 mcg lactated Ringers infusion 1,000 mL 1,000 mL, at 100 mL/hr, Intravenous, CONTINUOUS, Starting on Shanta 04/18/17 at 1215, Until Shanta 04/18/17 at 1523, Day of Surgery (Day of Procedure) New Bag 04/18/2017 12:47 PM EDT lidocaine (PF) (XYLOCAINE) 100 mg/5 mL (2 %) injection PRN, Starting on Shanta 04/18/17 at 1257, Until Shanta 04/18/17 at 1343, Anesthesia Intra-op, Routine Given 04/18/2017 12:57 PM EDT 60 mg ondansetron (ZOFRAN) injection PRN, Starting on Shanta 04/18/17 at 1314, Until Shanta 04/18/17 at 1343, Nausea, Anesthesia Intra-op, Routine Given 04/18/2017 1:14 PM EDT 8 mg propofol (DIPRIVAN) 10 mg/mL bolus injection (Anesthesia) PRN, Starting on Shanta 04/18/17 at 1257, Until Shanta 04/18/17 at 1343, Anesthesia Intra-op Given 04/18/2017 1:24 PM EDT 20 mg Given 04/18/2017 1:11 PM EDT 50 mg Given 04/18/2017 12:57 PM EDT 150 mg propofol (DIPRIVAN) infusion CONTINUOUS PRN, Starting on Shanta 04/18/17 at 1258, Until Shanta 04/18/17 at 1343, Anesthesia Intra-op, Routine New Bag 04/18/2017 12:58 PM EDT 200 mcg/kg/min 79 mL/hr documented in this encounter Care Teams Mother Superior Relationship Specialty Start Date End Date Suzie Mcintyre APRN PCP - General Family Medicine 02/28/17 06/26/17 documented as of this encounter
--- OUTSIDE RECORDS SUMMARY | 2024-07-20 18:30 | XMS_ITS | Encounter Summary ---
Author Organization [facility] [place] [address] Care Team Providers Care Wrecking Supervisor Name Role Phone MineralSuzie costello Ana GONCALVES Primary Care Provider [phone] Reason for Referral * Diagnostic Test (Routine) - Closed Specialty Diagnoses / Procedures Referred By Alberta mendosa Referred To Contact Radiology Diagnoses Nephrolithiasis Procedures CT Urogram Ferdinand Michael Jr., MD [facility] [place] [address] [facility] [place] [address] Referral ID Status Reason Start Date Expiration Date V isits Requested Visits Authorized [id number] Closed Specialty Service Requested 03/14/2017 05/12/2017 1 1 Reason for Visit * Reason Comments Flank Pain Encounter Details Date Type Department Care Team (Late st Contact Info) Description 03/13/2017 3:40 PM EDT Office [place] [address] Ferdniand Michael Jr., MD [facility] [place] [address] Nephrolithiasis Social History Tobacco Use Types Packs/Day [...] documented in this encounter Progress Notes * Elliot Alberto MD - 03/13/2017 3:40 PM [...] says she has never passed them. She alsodenies fevers and hematuria. She says she is nervous because the pain is constant and she thinks she has another stone. Her diet remains the same; she takes in a good amount of fluid daily and avoids sodium and oxalate.She has started two new medications: donepezil and [...] ultrasound and abdominal films from today. I donot see any left sided stones or hydronephrosis. KUB 03/13 IMPRESSION No radiopaque urinary tract calculus identified. Impression/Plan: Left flank ache of unclear etiology. She is concerned it may be related to stone. I offered CT to assess if this truly is [...] and amended above. FERDINAND MICHAEL JR, MD * Ferdinand Michael Jr., MD - 03/13/2017 3:40 [...] returns. documented in this encounter Miscellaneous Notes * Addendum Note - Lucy Childs RN - 03/13/2017 4:54 PM EDTAddended by: LUCY CHILDS on: 03/13/2017 04:54 PM Modules accepted: Orders documented in this encounter Plan of Treatment Upcoming Encounters Date Type Department Care Team (Late st Contact Info) Description 08/07/2024 3:30 PM EST Office Visit Orthopaedics at [place] [phone] Tarik Henry MD [facility] [place] [address] 09/22/2024 7:00 AM EST Appointment [place] [address] Ferdinand Michael Jr., MD [facility] [place] [address] 09/22/2024 8:00 AM EST Office [place] [phone] Ferdinand Michael Jr., MD [facility] [place] [address] documented as of this encounter Procedures Procedure Name Priority Date/Time Associated Diagnosis Comments URINE CULTURE Routine 03/13/2017 5:50 PM EDT Nephrolithiasis URINALYSIS WITH REFLEX CULTURE Routine 03/13/2017 4:52 PM EDT Nephrolithiasis documented in this encounter Results * CT Urogram (03/15/2017 4:10 PM EDT) Anatomical Region Laterality Modality Abdomen, Pelvis Computed Tomogra phy Impressions 03/15/2017 4:[address] urogram. No etiology identified for hematuria. Narrative 03/15/2017 4:56 PM EDT EXAMINATION: CT UROGRAM CLINICAL HISTORY: hematuria TECHNIQUE: Helical CT of the abdomen and pelvis was performed prior to and following intravenous administration of 110 ml of Omnipaque 350. ??3D VR and MIP images were reformatted on a separate workstation and reviewed as part of this study. The study is slightly limited due to under distention of distal ureter, and mid and distal portions of the right ureter. COMPARISON: July 27, 2011 FINDINGS: Right kidney and ureter: No calculi, hydronephrosis or hydroureter. No renal lesions. No filling defect or abnormal wall thickening in the collecting system. Left kidney and ureter: No calculi, hydronephrosis or hydroureter. No renal lesions. No filling defect or abnormal wall thickening in the collecting system. Urinary bladder: Normal, no calculi, or visible mass. Lower chest: Normal. Liver: Normal. Bile ducts: Nondilated. Gallbladder: No calcified gallstones. Normal caliber wall. Pancreas: Normal. Spleen: Normal. Adrenals: Normal. Vasculature: No aneurysm. Lymph Nodes: No enlarged lymph nodes. Bowel: Nondilated, no wall thickening. ?? Peritoneum and mesentery: No ascites, free air, or loculated fluid collection. No mesenteric inflammation. Abdominal wall: Normal. Reproductive organs: Normal. Osseous structures: No suspicious lesions. Procedure Note Melvin Garcia MD - 03/15/2017 EXAMINATION: CT UROGRAM CLINICAL HISTORY: hematuria TECHNIQUE: Helical CT of the abdomen and pelvis was performed prior toand following intravenous administration of 110 ml of Omnipaque 350. 3D VRand MIP images were reformatted on a separate workstation and reviewed as part ofthis study. The study is slightly limited due to under distention of distalureter, and mid and distal portions of the right ureter. COMPARISON: July 27, 2011 FINDINGS: Right kidney and ureter: No calculi, hydronephrosis or hydroureter. Norenal lesions. No filling defect or abnormal wall thickening in the collectingsystem. Left kidney and ureter: No calculi, hydronephrosis or hydroureter. Norenal lesions. No filling defect or abnormal wall thickening in the collectingsystem. Urinary bladder: Normal, no calculi, or visible mass. Lower chest: Normal. Liver: Normal. Bile ducts: Nondilated. Gallbladder: No calcified gallstones. Normal caliber wall. Pancreas: Normal. Spleen: Normal. Adrenals: Normal. Vasculature: No aneurysm. Lymph Nodes: No enlarged lymph nodes. Bowel: Nondilated, no wall thickening. Peritoneum and mesentery: No ascites, free air, or loculated fluidcollection. No mesenteric inflammation. Abdominal wall: Normal. Reproductive organs: Normal. Osseous structures: No suspicious lesions. IMPRESSION Negative CT urogram. No etiology identified for hematuria. Ferdinand Michael Jr., MD [facility] CT ORDERABLES * Basic Metabolic Panel (non-fasting) (03/15/2017 2:36 PM EDT) Glucose 93 65 - 199 mg/dL [facility] Comment:Diabetes: >=200 mg/d L plus symptoms Blood Urea Nitrogen 15 8 - 18 mg/dL [facility] Creatinine 0.82 0.70 - 1.20 mg/dL [facility] Comment: Please note that the pediatric reference intervals supplied above were not validated at [facility]. Results from pediatric patients should be interpreted in conjunction to the patient's age, height and muscle mass. Sodium 137 135 - 145 mmol/L [facility] Potassium 4.1 3.5 - 5.0 mmol/L [facility] Comment: Please note: ??Patients with WBC >100,000 may have falsely elevated Potassium levels. ??For accurate Potassium quantification in these patients send serum separator tube (gold top) for subsequent determinations. ??Contact the Clinical Chemistry Laboratory if there are any questions. Chloride 101 98 - 107 mmol/L [facility] Carbon Dioxide 24 22 - 31 mmol/L [facility] Anion Gap 12 5 - 15 mmol/L [facility] Calcium 9.3 8.5 - 10.5 mg/dL [facility] Est Glomerular Filtration Rate >60 >=60 [facility] Comment: This estimated GFR (eGFR) [...] the following links into your internet browser. [email or web address] Blood specimen (specimen) 03/15/2017 2:36 PM EDT 03/15/2017 2:47 PM EDT Narrative Resulting Agency Comment Spec In Lab Ferdinand Michael Jr., MD CHEMISTRY ORDERABL ES Performing Organization Address [facility]/ZIP Co de Phone Number [facility] [place] [address] * (ABNORMAL) Urine culture Clean Catch Urine (03/13/2017 5:50 PM EDT) Urine Culture 1,000-9,000 cfu/ml Gram Positive organisms , probable contaminant(A ) [facility] Urine specimen obtained by clean catch procedure (specimen) 03/13/2017 5:50 PM EDT 03/13/2017 5:50 PM EDT Narrative Resulting Agency Comment Spec In Lab Ferdinnad Michael Jr., MD MICROBIOLOGY - GEN ERAL ORDERABLES Performing Organization Address City/[facility]/ZIP Co de Phone Number [facility] [place] [address] * (ABNORMAL) Urinalysis with reflex Culture (03/13/2017 4:52 PM EDT) Glucose, Urine Dipstick Negative Negative mg/dL [facility] Protein, Urine Dipstick Negative Negative mg/dL [facility] Bilirubin, Urine Dipstick Negative Negative mg/dL [facility] Comment: Clinical correlation required for positive Urine Bilirubin results as false positive may occur with some drugs and drug related products. If a false positive is suspected a serum total bilirubin should be considered if clinically indicated. Urobilinogen, Urine Dipstick Normal Normal mg/dL [facility] pH, Urn (dipstick) 6.0 5.0 - 8.0 [facility] Blood, Urine Dipstick Small(A) Negative mg/dL [facility] Ketone, Urine Dipstick Negative Negative mg/dL [facility] Nitrite, Urine Dipstick Negative Negative [facility] Leukocytes, Urine Dipstick Negative Negative [facility] Appearance, Urine Dipstick Hazy(A) Clear [facility] Specific [place] Urine Automated 1.014 1.002 - 1.030 [facility] Color, Urine Dipstick Yellow Yellow [facility] RBC, Urine <1 0 - 4 /HPF [facility] WBC, Urine 2 0 - 5 /HPF [facility] Bacteria, Urine Rare(A) None /HPF [facility] Squamous Epithelial Cells Raw Data, Urine 1 <=4 /HPF [facility] Hyaline Casts, Urine 1 0 - 2 /LPF [facility] Reflex to Culture No [facility] Urine specimen obtained by clean catch procedure (specimen) 03/13/2017 4:52 PM EDT 03/13/2017 5:34 PM EDT Narrative Resulting Agency Comment Spec In Lab Ferdinand Michael Jr., MD URINE ORDERABLES [place] [address] documented in this encounter Visit Diagnoses Diagnosis Nephrolithiasis Calculus of kidney Nephrolithiasis Calculus of kidney documented in this encounter Care Teams Wrecking Supervisor Relationship Specialty Start Date End Date Suzie Mcintyre APRN PCP - General Family Medicine 02/28/17 06/26/17 documented as of this encounter
--- OUTSIDE RECORDS SUMMARY | 2024-07-20 18:30 | XMS_ITS | Encounter Summary ---
Author Organization [facility] Address [facility] [place] [address] Care Team Providers Care Route Clerk Name Role Phone Janet Davey APRN Primary Care Provider [phone] Reason for Visit * Reason Comments Skin Lesion * Consultation (Routine) - Specialty Diagnoses / Procedures Referred By Alberta mendosa Referred To Contact Dermatology Diagnoses SKIN LESION Doreen Larios PA [address] [place] [address] [facility] Dermatology [address] [place] [address] Referral ID Status Reason Start Date Expiration Date V isits Requested Visits Authorized [id number] Consult, Test & Treat [facility] 05/16/2018 05/16/2019 6 6 Encounter Details Date Type Department Care Team (Late st Contact Info) Description 06/23/2018 3:30 PM EDT Office Visit Dermatology at [facility] [address] [place] [address] Romy Ansari MD [facility] DR VALENTIN [place] [address] Seborrheic keratosis; Lentigines Social History Tobacco Use Types Packs/Day Years [...] as of this encounter Progress Notes * Romy Ansari MD - 06/23/2018 3:30 PM [...] she first noticed it about a year ago.It seems to be oddly shaped and larger then all of her other moles. Denies any itching, bleeding, or pain. 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 Lot [id number] ??? omeprazole (PRILOSEC) 20 mg Capsule, Delayed [...] this encounter in the presence of and actingas a scribe for Romy Ansari MD. I, Dr. Romy Ansari, performed the visit service though my nurse assisted me in scribing the note. I reviewed and edited this note above, a scribed service performed by my nurse. On closure of this note I agree with the accuracy of the documentation. Romy Ansari MD Section of Dermatology [facility] documented in this encounter Plan of Treatment Upcoming Encounters Date Type Department Care Team (Late st Contact Info) Description 08/07/2024 3:30 PM EST Office Visit Orthopaedics at [address] Tarik Henry MD [facility] [place] [address] 09/22/2024 7:00 AM EST [place] [address] Luis Michael Jr., MD [facility] [place] [address] 09/22/2024 8:00 AM EST Office Visit Urology at [place] [phone] Luis Michael Jr., MD [facility] [place] [address] documented as of this encounter Visit Diagnoses Diagnosis Seborrheic keratosis Other seborrheic keratosis Lentigines Other dyschromia documented in this encounter Care Teams Route Clerk Relationship Specialty Start Date End Date Janet Davey APRN PCP - General Family Medicine 06/23/18 07/12/20 documented as of this encounter
--- OUTSIDE RECORDS SUMMARY | 2024-07-20 18:30 | XMS_ITS | Encounter Summary ---
Author Organization [facility] [place] [address] Care Team Providers Care Field Training Agent Name Role Phone HectorCindySarah Jeramie GONCALVES Primary Care Provider [phone] Encounter Details Date Type Department Care Team (Latest Contact Info) Description 08/05/2017 7:00 AM EST Office Visit Obstetrics [place] [address] Ida Ron EXPANDER [facility] [place] [address] Encounter for gynecological examination without abnormal finding [...] documented in this encounter Progress Notes * Ida Ron, EXPANDER - 08/05/2017 7:00 AM EST 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 CREATED BY Sihua TechnologyJosephSBrianne(MSUROL) Procedure Date: 01/16/2008 ??? KNEE SURGERY 03/01/14 Right knee; patella surgery ??? LITHOTRIPSY ? ? PRO CYSTOURETHROSCOPY, FULGUR <.5CM LESN N/A 04/18/2017 CYSTO, FULGURATION\BLADDER LESION\W\WO BX\LESS THAN 0.5CM (WRVU 4.05) performed by Luis Michael Jr., MD at [facility] METAL BUFFER History: Pt is a 51 year old G 4 P 3 female. Last pap 04/2016 WNL, neg HPV; hx abnormal pap at age 15 that required cryotherapy. Hx PID at age 15; no other hx of STD's/STI's. Last mammogram today.DEXA scan done in 06/27/17 femoral neck with [...] a new home in their town of [place], [place]. 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 Eats relatively healthy with fruits, vegetables, yogurt, and milk; minimal meat. Eats 3 meals per day, does not drink tea or coffee, and occasionally drinks soda.Her youngest is 17 yrs old, senior. The other two are out of the house. She is very involved with her sons family that has lots of psycho social issues, her sons is bipolar, back issue,they have one child together, she had 3 in a previous relationship. She has not gone for counseling. Outpatient Prescriptions Marked as Taking for the 08/05/17 encounter (Office Visit) with Ida Ron APRN Medication Sig Dispense Refill ??? azelastine (ASTELIN) 137 mcg (0.1 %) Aerosol, [place] instill 1 spray into each nostril twice [...] 1 each by Intrauterine route once. Lot [id number] ??? omeprazole (PRILOSEC) 20 mg Capsule, Delayed [...] confirms, good tone, no hemorrhoids A: Unremarkable minibus driver exam Cervical erosion possible due to IUD string vs hx of cryo Perimenopause/menopause P: Pap pending Con't with ERT and Mirena * Sowmya Fitch - 08/05/2017 7:00 AM EST Subjective: Stacy Albright is a 51 y.o. female who presents for an annual exam. The patient has no complaints today. The patient is sexually active. Patient denies vaginal bleeding, discharge, itchiness, U/F/D,pain with intercourse, and vaginal dryness. Review of [...] History: Procedure Laterality Date ??? CREATED BY [employer].SJosephWGuido(Tactile) Procedure Date: 01/16/2008 ??? KNEE SURGERY 03/01/14 Right knee; patella surgery ??? LITHOTRIPSY ? ? PRO CYSTOURETHROSCOPY, FULGUR <.5CM LESN N/A 04/18/2017 CYSTO, FULGURATION\BLADDER LESION\W\WO BX\LESS THAN 0.5CM (WRVU 4.05) performed by Luis Michael Jr., MD at [facility] Social History Social History ??? [...] a new home in their town of [place], [place]. 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 Eats relatively healthy with fruits, vegetables, yogurt, and milk; minimal meat. Eats 3 meals per day, does not drink tea or coffee, and occasionally drinks soda.Her youngest is 17 yrs old, senior. The other two are out of the house. She is very involved with her sons family that has lots of psycho social issues, her sons is bipolar, back issue,they have one child together, she had 3 [...] at 11 to 1 o'clock on the cervix, non-friable upon pap smear, +IUD string noted at 4 o'clock. Normally developed external female genitalia with no lesions or eruptions. Vagina has no lesions, inflammation, or tenderness. Cervix is no ntender. Uterus is anteverted with no adnexal fullness. [...] 3:30 PM EST Office [place] [address] Tarik Henry MD [facility] DR [place] [address] 09/22/2024 7:00 AM EST Appointment Ultrasound at [place] [phone] Luis Michael Jr., MD [facility] [place] [address] 09/22/2024 8:00 AM EST Office [place] [address] Luis Michael Jr., MD [facility] UROLOGY [place], [place] [id number] documented as of this encounter Procedures Procedure Name Priority Date/Time Associated Diagnosis Comments METAL BUFFER CYTOLOGY INTERPRETATION Routine 08/05/2017 9:41 AM EST METAL BUFFER CYTOLOGY FINAL REPORT Routine 08/05/2017 9:41 AM EST CYTOPATHOLOGY GYNECOLOGICAL Routine 08/05/2017 9:41 AM EST Encounter for gynecological examination without abnormal finding documented in this encounter Results * Job Trainer Cytology Final Report (08/05/2017 9:41 AM EST) Job Trainer Cytology Final Report [id number] ? Location: 5L The signing pathologist has (i) examined the relevant preparation(s) for the specimen(s) and (ii) rendered or confirmed the diagnosis(es). . ? Job Trainer Final DIAGNOSIS Normal Negative for Intraepithelial Lesion or Malignancy (NILM). For consensus guidelines for the management of cervical cancer screening test results, please see: ?? http://www.asccp.o rg . Electronically signed by: ??Heladio AVI(ASCP)Salma Verified: ??08/16/2017 ?Wood Hacker Performed at: ??-[facility] Dept. of Pathology, [place], [place] HPV RESULTS Not applicable (HPV testing either not indicated or not requested by clinician). STATEMENT OF ADEQUACY Specimen submitted is satisfactory. Endocervical component present. CLINICAL INFORMATION HPV Option: ?Reflex HPV Preparation: ? Liquid based Pap Specimen Source: ? Cervical/Endocervi beena LMP: ? n/a Hormones?: ? Yes Hysterectomy?: ? No ?: ? No ?: ? No I.U.D.?: ? Yes Pelvic Radiation: ?No Prior METAL BUFFER Therapy?: ?Cryotherapy Hist Abnl Pap/Biopsy?: ?? Yes, history of previous abnormal Pap Hist of HPV Vaccine?: ?No Hist of Smoking?: ?No Hist of HAZEL exposure?: ?? No ICD Diagnosis: ? Z12.4 Encounter for screening for malignant neoplasm of cervix Clinical Data, Significant Therapy and Clinical Impression ?? : ?area of cervical erosion anterior lip cervix; hx cryo This Pap Test has been evaluated with the assistance of the [employer]Stream MediaPrep Pap Test Imaging System. Note: The Pap test is a screening test for cervical cancer with an inherent false-negative rate dependent upon several variables. For further information please contact the [facility] Laboratory. Reference: Devika LEON. Flattening Machine Operator of Pap Smear Results. In: Sukumar BS, Roni HH, ed. The Pap Smear. [place]: Jonah, 2002: 71-77. [facility] 08/05/2017 9:41 AM EST Ida Ron SACHA PATHOLOGY/CYTOLOGY O RDERABLES Performing Organization Address [facility] Co de Phone Number [facility] [place] [address] * METAL BUFFER Cytology Interpretation (08/05/2017 9:41 AM EST) Job Trainer Cytology Interpretation [facility] Comment:Job Trainer Cytology Final R eport Endocervical Component Present [facility] AP Specimen 08/05/2017 9:41 AM EST 08/16/2017 10:17 AM EST Ida Ron SACHA PATHOLOGY/CYTOLOGY O RDERABLES Performing Organization Address [facility] Co de Phone Number [facility] [place] [address] * Cytopathology Gynecological (08/05/2017 9:41 AM EST) AP Specimen 08/05/2017 9:41 AM EST 08/05/2017 9:41 AM EST Narrative [facility] - 08/05/2017 9:41 AM EST Specimen requisition ordered. ??Separate Pathology report to follow Ida Ron SACHA PATHOLOGY/CYTOLOGY O RDERABLES Performing Organization Address [facility] [place] [address] documented in this encounter Visit Diagnoses Diagnosis Encounter for gynecological examination without abnormal finding Routine gynecological examination documented in this encounter Care Teams Field Training Agent Relationship Specialty Start Date End Date Sarah Young APRN [address] [place] [address] PCP - General Family Medicine 06/27/17 05/15/18 documented as of this encounter
--- OUTSIDE RECORDS SUMMARY | 2024-07-20 18:30 | XMS_ITS | Encounter Summary ---
Author Organization [facility] [place] [address] Care Team Providers Care Athletics Director Name Role Phone Sarah Young SACHA Primary Care Provider [phone] Encounter Details Date Type Department Care Team (Late st Contact Info) Description 07/26/2017 [place] [phone] Luis Michael Jr., MD [facility] [place] [address] Social History Tobacco Use Types Packs/Day Years [...] 3:30 PM EST Office [place] [phone] Tarik Henry MD [facility] [place] [address] 09/22/2024 7:00 AM EST Appointment [place] [address] Luis Michael Jr., MD [facility] [place] [address] 09/22/2024 8:00 AM EST Office [place] [address] Luis Michael Jr., MD [facility] [place] [address] documented as of this encounter Visit Diagnoses Not on filedocumented in this encounter Care Teams Athletics Director Relationship Specialty Start Date End Date Sarah Young APRN [address] [place] [address] PCP - General Family Medicine 06/27/17 05/15/18 documented as of this encounter
--- OUTSIDE RECORDS SUMMARY | 2024-07-20 18:30 | XMS_ITS | Encounter Summary ---
Author Organization [facility] [place] [address] Care Team Providers Care Progress Developer Name Role Phone BourbonIsela costellostan Perez APRN Primary Care Provider [phone] Reason for Referral * Diagnostic Test (Routine) - Closed Specialty Diagnoses / Procedures Referred By Contac t Referred To Contact Radiology Diagnoses Nephrolithiasis Procedures CT Urogram Luis Michael Jr., MD [facility] [place] [address] [facility] [place] [address] Referral ID Status Reason Start Date Expiration Date V isits Requested Visits Authorized [id number] Closed Specialty Service Requested 03/14/2017 05/12/2017 1 1 Reason for Visit * Diagnostic Test (Routine) - Closed Specialty Diagnoses / Procedures Referred By Contac t Referred To Contact Radiology Diagnoses Nephrolithiasis Procedures CT Urogram Luis Michael Jr., MD [facility] [place] [address] [facility] [place] [address] Referral ID Status Reason Start Date Expiration Date V isits Requested Visits Authorized [id number] Closed Specialty Service Requested 03/14/2017 05/12/2017 1 1 Encounter Details Date Type Department Care Team (Latest Contact Info) Description 03/15/2017 3:28 PM EDT - 03/15/2017 11:59 PM EDT Hospital Encounter CT Scan at [facility] [place] [id number] Luis Michael Jr., MD [facility] [place] [address] Nephrolithiasis Discharge Disposition: Home Social History Tobacco [...] patch 11 07/27/2016 06/18/2017 NASONEX 50 mcg/actuation [place], Non-Aerosol 0 05/18/2016 06/11/2018 levonorgestrel (MIRENA) 20 mcg/24 hr (5 years) IUD 1 each by Intrauterine route once. Lot [id number] 05/01/2016 05/01/2021 omeprazole (PRILOSEC) 20 mg Capsule, Delayed Release(E.C.) PRN 0 03/22/2016 08/06/2018 ondansetron (ZOFRAN) 4 mg Tablet take 1 tablet by mouth every 6 hours if needed 0 03/20/2016 04/09/20 NIFEdipine (ADALAT CC) 30 mg Tablet Sustained [...] 08/24/2010 02/12/2022 documented as of this encounter Miscellaneous Notes * Ancillary Services Notes - Deshaun Patel - [...] contrast out of your body. Thank You, [facility] CT Scan Dept [facility] INTERVENTIONAL RADIOLOGY CT UROGRAM PROCEDURE NAME: JESSICA ALBRIGHT ADDRESS: [address] [place] [address] HOME PHONE: [phone] (home) [phone] (work) MOBILE NUMBER: Telephone Information: REFERRING PROVIDER: [...] 07/27/16 Ida Ron APRN NASONEX 50 mcg/actuation [place], Non-Aerosol 05/18/16 PROVIDER, HISTORICAL SUMAtriptan (IMITREX) 100 mg Tablet as needed for Migraine. 04/13/16 PROVIDER, HISTORICAL levonorgestrel (MIRENA) 20 mcg/24 hr (5 years) IUD 1 each by Intrauterine route once. Lot [id number] 05/01/16 05/01/21 PROVIDER, HISTORICAL omeprazole (PRILOSEC) 20 [...] Inhale 1 puff into the lungs 2 timesdaily as needed (winter time). PROVIDER, HISTORICAL multivitamin (THERAGRAN) tablet Take 1 tablet by mouth daily. PROVIDER, HISTORICAL montelukast (SINGULAIR) 10 mg tablet Take 10 mg by mouth every morning. 4/14/11 PROVIDER, HISTORICAL albuterol (ACCUNEB) 0.63 mg/3 mL [...] 3:30 PM EST Office Visit Orthopaedics at [place] [phone] Tarik Henry MD [facility] [place] [address] 09/22/2024 7:00 AM [place] [address] Luis Michael Jr., MD [facility] [place] [address] 09/22/2024 8:00 AM EST [place] [address] Luis Michael Jr., MD [facility] [place] [address] documented as of this encounter Procedures Procedure Name Priority Date/Time Associated Diagnosis Comments CT SCAN UROLOGY Routine 03/15/2017 4:10 PM EDT Nephrolithiasis documented in this encounter [...] CT urogram. No etiology identified for hematuria. Luis Michael Jr., MD IMG [...] cabinet override furosemide (LASIX) injection 10 mg 10 mg, Intravenous, ONCE, 1 dose, On Sat03/15/17 at 0845, Give in radiology., Routine Given 03/15/2017 4:00 PM EDT 10 mg iohexol (OMNIPAQUE) 350 mg/mL solution 110 mL 110 mL, Intravenous, ONCE PRN, 1 dose, Starting on Sat03/15/17 at 1546, Until Sat03/15/17 at 1546, Per Protocol, Routine Given 03/15/2017 3:46 PM EDT 110 mLs documented in this encounter Care Teams Progress Developer Relationship Specialty Start Date End Date Suzie Mcintyre APRN PCP - General Family Medicine 02/28/17 06/26/17 documented as of this encounter
--- OUTSIDE RECORDS SUMMARY | 2024-07-20 18:30 | XMS_ITS | Encounter Summary ---
Author Organization [facility] Address [facility] [place] [address] Care Team Providers Care Pastrycook Name Role Phone Sarah Young SACHA Primary Care Provider [phone] Encounter Details Date Type Department Care Team (Late st Contact Info) Description 10/11/2017 Telephone Psychiatry and Behavioral Health at [facility] [place] [phone] Jessica Shelton, PhD NEUROPSYCHOLOGY DEPT. [facility] [place] [address] Social History Tobacco Use Types Packs/Day Years [...] encounter Miscellaneous Notes * Telephone Encounter - Jessica Shelton, PhD - 10/11/2017 12:44 PM EST CONFIDENTIAL FEEDBACK NOTE ON NEUROPSYCHOLOGICAL RE-EVALUATION Stacy Albright participated in a 15-minute telephone feedback session to discuss the results of her second [facility] neuropsychological evaluation. Briefly, the results revealed generally intact neuropsychological functioning. Performance on measures of verbal and visual learning and memory was variable.She evidenced weakness in retrieval and recognition of noncontextual verbal information, with intact contextual learning and memory. Visual learning and retrieval was variable, with improvement in performance with more time for encoding, with intact recognition memory. There was evidence that performance might have been impacted by the use of less efficient learning strategies (i.e., piecemeal copy of a complex figure, stronger reliance on serial position on a verbal list learning task). Performance was otherwise within normal limits for measures of basic attention, executive functions, processing speed, receptive and expressive language abilities, visuospatial skills, and bilateral motor speed and coordination. Relative to the prior neuropsychological evaluation on 09/12/2016, she demonstrated generally stable performance, with some areas of improvement and other areas of subtle decline (see Neuropsychological Report for details). During the feedback session, Ms. Albright indicated one of her medications has been changed (was unsure of what her new medication was) and that melatonin has been more effective with the change although her memory feels slightly worse. The results of the evaluation were reviewed and all questions were answered. The report is available in eD. Thank you for referring Ms. Albright for evaluation. Please contact us at [phone] if we can be of further assistance. Sherine Hurst Psy.D. Jessica Shelton, Ph.D., ABPP Postdoctoral Fellow in Neuropsychology Board Certified in Clinical Neuropsychology jde developer Director, Neuropsychology Program documented in this encounter Plan of Treatment Upcoming Encounters Date Type Department Care Team (Late st Contact Info) Description 08/07/2024 3:30 PM EST Office [place] [phone] Tarik Henry MD [facility] [place] [address] 09/22/2024 7:00 AM EST Appointment [place] [phone] Luis Michael Jr., MD [facility] [place] [address] 09/22/2024 8:00 AM EST Office [place] [address] Luis Michael Jr., MD [facility] [place] [address] documented as of this encounter Visit Diagnoses Not on filedocumented in this encounter Care Teams Pastrycook Relationship Specialty Start Date End Date Sarah Young, OPTOMETRY DOCTOR [address] [place] [address] PCP - General Family Medicine 06/27/17 05/15/18 documented as of this encounter
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
--- OUTSIDE RECORDS SUMMARY | 2024-07-20 18:30 | XMS_ITS | Encounter Summary ---
Author Organization [facility] [place] [address] Care Team Providers Care Bank Reconciliator Name Role Phone Monica Garcia MD Primary Care Provider [phone] Reason for Visit * Reason Comments Medication Refill Encounter Details Date Type Department Care Team (Late st Contact Info) Description 07/27/2016 Refill Obstetrics [place] [address] Ida Ron APRN [facility] DR OBSTETRICS & [place] [address] Social History Tobacco Use Types Packs/Day Years [...] 3:30 PM EST Office [place] [phone] Tarik Henry MD [facility] [place] [address] 09/22/2024 7:00 AM EST Appointment [place] [address] Luis Michael Jr., MD [facility] [place] [address] 09/22/2024 8:00 AM EST Office [place] [address] Luis Michael Jr., MD [facility] [place] [address] documented as of this encounter Visit Diagnoses Not on filedocumented in this encounter Care Teams Bank Reconciliator Relationship Specialty Start Date End Date Monica Garcia MD [address] [place] [address] PCP - General 01/06/13 02/27/17 documented as of this encounter
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
--- OUTSIDE RECORDS SUMMARY | 2024-07-20 18:30 | XMS_ITS | Encounter Summary ---
Author Organization [facility] [place] [address] Care Team Providers Care Water Pump Servicer Name Role Phone Suzie Mcintyre APRN Primary Care Provider [phone] Encounter Details Date Type Department Care Team (Late st Contact Info) Description 03/18/2017 [place] [phone] Luis Michael Jr., MD [facility] [place] [address] Social History Tobacco Use Types Packs/Day Years [...] encounter Miscellaneous Notes * Telephone Encounter - Luis Michael Jr., MD [...] We reviewed u/a showing <1rbc/hpf. In light of her report of witnessed spotting, we discussed could still proceed with cystoscopy to complete suspected hematuria evaluation, as well as watchful waiting. She wishes to proceed with cystoscopy. If negative cysto, I also suggested she undergo DATA PROCESSING MANAGER evaluation to assess for possible DATA PROCESSING MANAGER source forbloody spotting. She will proceed in this fashion. If sooner cystoscopy available with Nadia Urias APRN, she would be happy to see her instead. CT [...] 3:30 PM EST Office [place] [address] Tarik Henry MD [facility] [place] [address] 09/22/2024 7:00 AM EST [place] [phone] Luis Michael Jr., MD [facility] [place] [address] 09/22/2024 8:00 AM EST Office [place] [address] Luis Michael Jr., MD [facility] [place] [address] documented as of this encounter Visit Diagnoses Not on filedocumented in this encounter Care Teams Water Pump Servicer Relationship Specialty Start Date End Date Suzie Mcintyre APRN PCP - General Family Medicine 02/28/17 06/26/17 documented as of this encounter
--- OUTSIDE RECORDS SUMMARY | 2024-07-20 18:30 | XMS_ITS | Encounter Summary ---
Author Organization [facility] [place] [address] Care Team Providers Care Care Companion Name Role Phone Suzie Mcintyre APRN Primary Care Provider [phone] Encounter Details Date Type Department Care Team (Late st Contact Info) Description 05/01/2017 Orders [place] [phone] Cuate Hall MD [facility] [place] [address] Osteoporosis, unspecified osteoporosis type, unspecified pathological fracture [...] 3:30 PM EST Office [place] [phone] Tarik Henry MD [facility] [place] [address] 09/22/2024 7:00 AM EST [place] [address] Luis Michael Jr., MD [facility] [place] [address] 09/22/2024 8:00 AM EST [place] [address] Luis Michael Jr., MD [facility] [place] [address] documented as of this encounter Results * DXA Central-Spine, Hip, [...] BMD measurements and plots are available in [employer] under the imaging tab. Paper copies will be sent to providers without [employer] access. If you have received this report without the data sheet and do not have access to [employer], please contact Radiology Carton Inspector at [phone] Saturday thru Saturday 8am-4pm. Narrative 06/27/2017 4:50 PM EDT EXAMINATION: DXA CENTRAL-SPINE, HIP, AND/OR WHOLE BODY (GENERIC) CLINICAL HISTORY: osteoporosis TECHNIQUE: Scans were acquired at the lumbar spine and left hip. Densitometer: Hologic Discovery [...] the lumbar spine and left hip. Densitometer: HoloLight Harmonic Discovery A FINDINGS: Lowest T-score at the [...] BMD measurements and plots are available in E-under the imaging tab. Paper copies will be sent to providers without [employer] access.If you have received this report without the data sheet and do not haveaccess to [employer], please contact Radiology Carton Inspector at [phone] Saturday thruFrid 8am-4pm. Cuate Hall MD IMG DEXA ORDERABLES documented in this encounter Visit Diagnoses Diagnosis Osteoporosis, unspecified osteoporosis type, unspecified pathological fracture presence Osteoporosis, unspecified osteoporosis type, unspecified pathological fracture presence documented in this encounter Care Teams Care Companion Relationship Specialty Start Date End Date Suzie Mcintyre APRN PCP - General Family Medicine 02/28/17 06/26/17 documented as of this encounter
--- OUTSIDE RECORDS SUMMARY | 2024-07-20 18:30 | XMS_ITS | Encounter Summary ---
Author Organization [facility] [place] [address] Care Team Providers Care Fur Remodeler Name Role Phone Suzie Mcintyre SACHA Primary Care Provider [phone] Encounter Details Date Type Department Care Team (Latest Contact Info) Description 04/18/2017 11:25 AM EDT - 04/18/2017 3:23 PM EDT Hospital Encounter [place] [address] Luis Michael Jr., MD [facility] [place] [address] Nephrolithiasis Discharge Disposition: Home Social History Tobacco [...] patch 11 07/27/2016 06/18/2017 NASONEX 50 mcg/actuation [place], Non-Aerosol 0 05/18/2016 06/11/2018 levonorgestrel (MIRENA) 20 mcg/24 hr (5 years) IUD 1 each by Intrauterine route once. Lot [id number] 05/01/2016 05/01/2021 omeprazole (PRILOSEC) 20 mg Capsule, [...] 8 patch 11 ??? NASONEX 50 mcg/actuation [place], Non-Aerosol 0 ??? SUMAtriptan (IMITREX) 100 mg Tablet as needed for Migraine. 1 ??? levonorgestrel (MIRENA) 20 mcg/24 hr (5 years) IUD 1 each by Intrauterine route once. Lot [id number] ??? multivitamin (THERAGRAN) tablet Take 1 tablet [...] MD - 04/18/2017 1:31 PM EDT [facility] Operative Note Patient Name: Stacy Albright : [id number] MR#: [id number] Case Date: 04/18/2017 Surgeon: Surgeon(s) and Role: [...] were noted to be in orthotopic position. Marberger biopsy [...] Operative Note Patient Name: Stacy Albright : [id number] MR#: [id number] Case Date: 04/18/2017 Surgeon: Surgeon(s) and Role: [...] 3:30 PM EST Office [place] [address] Tarik Henry MD [facility] DR OR[place]OP[place]ED[place] [address] 09/22/2024 7:00 AM EST [place] [phone] Luis Michael Jr., MD [facility] [place] [address] 09/22/2024 8:00 AM EST [place] [address] Luis Michael Jr., MD [facility] [place] [place] [address] documented as of this encounter Procedures Procedure Name Priority Date/Time Associated Diagnosis Comments SURGICAL PATHOLOGY REPORT Routine 04/18/2017 1:17 PM EDT SPECIMEN TO PATHOLOGY Routine 04/18/2017 1:17 PM EDT CYSTO, FULGURATION\BLADDER LESION\W\WO BX\LESS THAN 0.5CM (WRVU 4.05) Yes 04/18/2017 12:46 PM EDT small bladder lesion documented in this encounter Results * Surgical Pathology Report (04/18/2017 1:17 PM EDT) Final Diagnosis [id number] ? Location: [facility]; [facility]; The signing pathologist has (i) examined the [...] sing: (T1) ??sns 04/23/2017 1:54 PM EDT [facility] URINARY BLADDER STRUCTURE / Unknown 04/18/2017 1:17 PM EDT 04/18/2017 1:17 PM EDT Luis Michael Jr., MD PATHOLOGY/CYTOLOGY ORDERABLES Performing Organization Address [facility] [place] [address] * Specimen to Pathology (surgical or derm) (04/18/2017 1:17 PM EDT) AP Specimen 04/18/2017 1:17 PM EDT 04/18/2017 1:17 PM EDT Narrative [facility] - 04/18/2017 1:17 PM EDT Specimen requisition ordered. ??Separate Pathology report to follow Luis Michael Jr., MD PATHOLOGY/CYTOLOGY ORDERABLES Performing Organization Address [facility] Co de Phone Number [place] [phone] documented in this encounter Visit Diagnoses Diagnosis [...] 5% 100 mL (COMPLETED) 2 g, Intravenous, SMT MACHINE OPERATOR TO O.R., 1 dose, On [...] RN) documented in this encounter Care Teams Fur Remodeler Relationship Specialty Start Date End Date Suzie Mcintyre APRN PCP - General Family Medicine 02/28/17 06/26/17 documented as of this encounter
--- OUTSIDE RECORDS SUMMARY | 2024-07-20 18:30 | XMS_ITS | Encounter Summary ---
Author Organization [facility] Address [facility] [place] [address] Care Team Providers Care Assistant Sales Director Name Role Phone Doreen Larios Primary Care Provider + Encounter Details Date Type Department Care Team (Latest Contact Info) Description 06/11/2018 2:30 PM EDT - 06/11/2018 11:59 PM EDT Hospital Encounter [place] [address] Ferdinand Pennington Jr., MD [facility] [place] [address] Nephrolithiasis Discharge Disposition: Home Social History Tobacco [...] azelastine (ASTELIN) 137 mcg (0.1 %) Aerosol, Ebro as needed. 0 06/17/2017 SUMAtriptan (IMITREX) 100 mg Tablet as needed for Migraine. 1 04/13/2016 hydrocortisone (WESTCORT) 0.2 % Cream Apply topically as needed. 07/25/2015 multivitamin (THERAGRAN) tablet Take 1 tablet by mouth daily. montelukast (SINGULAIR) 10 mg tablet Take 10 mg by mouth daily as needed. 12/07/2010 albuterol (ACCUNEB) 0.63 mg/3 mL nebulizer solution 08/24/2010 valACYclovir (VALTREX) 500 mg Tablet 01/27/2018 06/30/2019 [...] 1 each by Intrauterine route once. Lot [id number] 05/01/2016 05/01/2021 omeprazole (PRILOSEC) 20 mg Capsule, [...] 3:30 PM EST Office [place] [address] Tarik Henry MD [facility] [place] [address] 09/22/2024 7:00 AM EST Appointment Ultrasound at [place] [phone] Ferdinand Pennington Jr., MD [facility] [address] 09/22/2024 8:00 AM EST Office [place] [address] Ferdinand Pennington Jr., MD [facility] [address] documented as of this encounter Procedures Procedure Name Priority Date/Time Associated Diagnosis Comments US RETROPERITONEAL COMPLETE Routine 06/11/2018 3:02 PM EDT Nephrolithiasis documented in this encounter [...] 03:13 pm) PATIENT INFO: ID #: ? [id number] ?: ??[birth year] (52 yrs) Name: ? JESSICA ALBRIGHT ?Visit Date: 06/11/2018 03:00 pm PERFORMED BY: Performed By: ? Chetna Hedrick RDMS Attending: ?Mateo GILL, Mallika Ribera Referred By: ?FERDINAND PENNINGTON JR Location: ? [facility]) PROVIDED: ??URETRO - Retroperitoneal Complete - [id number] ? [id number] INDICATIONS: ??h/o renal stones; eval interval change [...] 06/11/2018 03:13 pm) PATIENT INFO: ID #: [id number] : [birth year] (52 yrs) Name: JESSICA ALBRIGHT Visit Date: 06/11/2018 03:00 pm PERFORMED BY: Performed By: Chetna Hedrick RDMS Attending: Mallika Galindo MD Referred By: FERDINAND PENNINGTON JR Location: [facility]) PROVIDED: URETRO - Retroperitoneal Complete - [id number] INDICATIONS: h/o renal stones; eval interval change [...] kidney documented in this encounter Care Teams Assistant Sales Director Relationship Specialty Start Date End Date Doreen Larios PA PCP - General Family Medicine 05/16/18 06/22/18 documented as of this encounter
--- OUTSIDE RECORDS SUMMARY | 2024-07-20 18:30 | XMS_ITS | Encounter Summary ---
Author Organization [facility] [place] [address] Care Team Providers Care Orange Picking Supervisor Name Role Phone Suzie Mcintyre APRN Primary Care Provider [phone] Encounter Details Date Type Department Care Team (Late st Contact Info) Description 04/25/2017 [place] [phone] Luis Michael Jr., MD [facility] [place] [address] Social History Tobacco Use Types Packs/Day Years [...] EST Office [place] [address] Tarik Henry MD [facility] DR [place] [address] 09/22/2024 7:00 AM EST Appointment Ultrasound at [place] [phone] Luis Michael Jr., MD [facility] [place] [address] 09/22/2024 8:00 AM EST [place] [address]-1000 Luis Michael Jr., MD [facility] [place] [address] documented as of this encounter Visit Diagnoses Not on filedocumented in this encounter Care Teams Orange Picking Supervisor Relationship Specialty Start Date End Date Suzie Mcintyre APRN PCP - General Family Medicine 02/28/17 06/26/17 documented as of this encounter
--- OUTSIDE RECORDS SUMMARY | 2024-07-20 18:31 | XMS_ITS | Encounter Summary ---
Author Organization [facility] Address [facility] [place] [address] Care Team Providers Care Perioperative Manager Name Role Phone Monica Garcia MD Primary Care Provider [phone] Reason for Referral * MRI/CAT Scan (Routine) - Closed Specialty Diagnoses / Procedures Referred By Contac t Referred To Contact Radiology Diagnoses Ultrasound for screening for growth restriction Procedures US Retroperitoneal Complete Ferdinand Michael Jr., MD [facility] [place] [address] [facility] [place] [address] Referral ID Status Reason Start Date Expiration Date Visits Re quested Visits Authorized [id number] Closed 05/15/2016 05/15/2017 1 1 Encounter Details Date Type Department Care Team (Late st Contact Info) Description 05/16/2015 [place] [address] Ferdinand Michael Jr., MD [facility] [place] [address] Ultrasound for screening for growth restriction (Primary Dx) Social History Tobacco Use Types [...] 3:30 PM EST Office [place] [phone] Tarik Henry MD [facility] DR [place] [address] 09/22/2024 7:00 AM EST Appointment Ultrasound at [place] [phone] Ferdinand Michael Jr., MD [facility] [place] [address] 09/22/2024 8:00 AM EST [place] [phone] Ferdinand Michael Jr., MD [facility] [place] [address] documented as of this encounter Results * US Retroperitoneal Complete (07/26/2015 3:16 PM EST) Anatomical Region Laterality Modality Abdomen Ultrasound 07/26/2015 3:12 PM EST Impressions 07/26/2015 3:41 PM EST Impression Ultrasound - ??Retroperitoneal Complete - Summary 5 mm non obstructing left renal stone, otherwise normal renal ultrasound. I ??viewed the images and agree with the above interpretation. ? Weston Martin MD Electronically Signed Final Report ?? 07/26/2015 03:41 pm Narrative 07/26/2015 3:41 PM EST Renal ?(Signed Final 07/26/2015 03:41 pm) Patient Info ID #: ? [id number] ?: ??[birth year] (49 yrs) Name: ? JESSICA Melvin ALBRIGHT ?Visit Date: 07/26/2015 03:12 pm Performed By Performed By: ? Maria Teresa Escobar RDMS Attending: ?Veronica GILL, Weston Maloney Referred By: ?FERDINAND MICHAEL MD Service(s) Provided ??URETRO - Retroperitoneal Complete - [id number] ? [id number] Indications ??kidney stones Comparison Ultrasound: 02/23/14 ------- History ------- Multiple episodes of stones left kidney. Right Kidney Size (cm) ?L: ??9.6 Cortical Thickness: ?Normal Cortical Echogenicity: ?? Normal Hydronephrosis: ?No sonographic evidence Left Kidney Size (cm) ?L: ??10.4 Cortical Thickness: ?Normal Cortical Echogenicity: ?? Normal Hydronephrosis: ?No sonographic evidence Comment: ?5 mm stone mid kidney. Urinary Bladder Pre-void (cm) ? L: ??10.4 ?AP: ??7.91 ?TV: ??9.96 Vol (ml): ?429.0 Comment: ?Partially distended, normal contour Procedure Note Weston Martin MD - 07/26/2015 Renal (Signed Final 07/26/2015 03:41 pm) Patient Info ID #: [id number] : [birth year] (49 yrs) Name: JESSICA ALBRIGHT Visit Date: 07/26/2015 03:12 pm Performed By Performed By: Maria Teresa Escobar RDMS Attending: Weston Martin MD Referred By: FERDINAND MICHAEL MD Service(s) Provided URETRO - Retroperitoneal Complete - [id number] Indications kidney stones Comparison Ultrasound: 02/23/14 ------- History ------- Multiple episodes of stones left kidney. Right Kidney Size (cm) L: 9.6 Cortical Thickness: Normal Cortical Echogenicity: Normal Hydronephrosis: No sonographic evidence Left Kidney Size (cm) L: 10.4 Cortical Thickness: Normal Cortical Echogenicity: Normal Hydronephrosis: No sonographic evidence Comment: 5 mm stone mid kidney. Urinary Bladder Pre-void (cm) L: 10.4 AP: 7.91 TV: 9.96 Vol (ml): 429.0 Comment: Partially distended, normal contour IMPRESSION Impression Ultrasound - Retroperitoneal Complete - Summary 5 mm non obstructing left renal stone, otherwise normal renal ultrasound. I viewed the images and agree with the above interpretation. Weston Martin MD Electronically Signed Final Report 07/26/2015 03:41 pm Ferdinand Michael Jr., MD IMG US GEN ORDERAB LES documented in this encounter Visit Diagnoses Diagnosis Ultrasound for screening for growth restriction- Primary screening for growth retardation using ultrasonics Ultrasound for screening for growth restriction screening for growth retardation using ultrasonics documented in this encounter Care Teams Perioperative Manager Relationship Specialty Start Date End Date Monica Garcia MD [address] [place] [address] PCP - General 01/06/13 02/27/17 documented as of this encounter
--- OUTSIDE RECORDS SUMMARY | 2024-07-20 18:31 | XMS_ITS | Encounter Summary ---
Author Organization [facility] [place] [address] Care Team Providers Care Title I Teacher Name Role Phone Monica Garcia MD Primary Care Provider [phone] Encounter Details Date Type Department Care Team (Latest Contact Info) Description 06/28/2015 3:28 PM EST - 06/28/2015 11:59 PM [facility] Hospital [place] [address] Rosey Crabtree MD [facility] OBSTETRICS & [place] [address] Other screening mammogram Discharge Disposition: Home Social History [...] Refills Start Date End Date multivitamin (THERAGRAN) tablet Take 1 tablet by mouth daily. montelukast (SINGULAIR) 10 mg tablet Take 10 mg by mouth daily as needed. 12/07/2010 albuterol (ACCUNEB) 0.63 mg/3 mL nebulizer solution 08/24/2010 Fluocinolone Acetonide Oil 0.01 % Drops 0 06/21/2015 08/29/2015 polyethylene glycol (MIRALAX) 17 gram/dose Powder 03/28/2015 08/29/2015 estradiol (GLENYS) 0.1 mg/[address] 1 patch onto the skin twice a week. 07/06/2015 progesterone (PROMETRIUM) 200 mg Capsule Take 1 capsule by mouth daily. The - 14 of each month 42 capsule 3 07/15/2014 08/29/2015 ibuprofen (ADVIL;MOTRIN) 800 mg Tablet Take 800 mg by mouth every 6 hours as needed. 08/29/2015 cetirizine (ZYRTEC) 10 mg tablet Take 10 mg by mouth daily. 02/12/2022 MOMETASONE FUROATE (NASONEX NASL) by Nasal route daily. 05/31/2016 fluticasone-salmeterol (ADVAIR) 500-50 mcg/dose diskus inhaler Inhale 1 puff into the lungs 2 times daily as needed (winter time). 06/27/2017 FOLIC ACID/VITAMIN B COMP W-C (B-COMPLEX WITH VITAMIN C ORAL) 08/24/2010 016 SUMATRIPTAN SUCCINATE (IMITREX ORAL) 08/24/2010 05/01/2016 tacrolimus (PROTOPIC) 0.1 % ointment 1 Appl(s) Top Twice daily 08/24/2010 02/12/2022 ERGOCALCIFEROL, VITAMIN D2, (VITAMIN D ORAL) 08/24/2010 016 KETOCONAZOLE (NIZORAL TOP) Apply topically. 08/24/2010 02/12/2022 documented as of this encounter Plan of Treatment Upcoming Encounters Date Type Department Care Team (Late st Contact Info) Description 08/07/2024 3:30 PM EST Office [place] [phone] Tarik Henry MD [facility] ORTHOPAEDIC [place] [address] 09/22/2024 7:00 AM EST Appointment [place] [phone] Luis Michael Jr., MD [facility] [place] [address] 09/22/2024 8:00 AM EST Office Visit Urology at [facility] [place] [address] Luis Michael Jr., MD [facility] [place] [address] documented as of this encounter Procedures Procedure Name Priority Date/Time Associated Diagnosis Comments MAMMO 2D DIGITAL SCREEN ANTHONY BILATERAL Routine 06/28/2015 3:45 PM EST Other screening mammogram documented in this encounter Results * Mammo Screen Anthony 2D Bilateral (06/28/2015 3:45 PM EST) Anatomical Region Laterality Modality Breast Bilateral Mammography Narrative 06/29/2015 8:58 AM EST BILATERAL MAMMOGRAPHY [...] mammographic evidence of malignancy. RECOMMENDATION Routine screening mammography is recommended with the [...] documented in this encounter Care Teams Title I Teacher Relationship Specialty Start Date End Date Monica Garcia MD [address] [place] [address] PCP - General 01/06/13 02/27/17 documented as of this encounter
--- OUTSIDE RECORDS SUMMARY | 2024-07-20 18:31 | XMS_ITS | Encounter Summary ---
Author Organization [facility] [place] [address] Care Team Providers Care Assembler Sandal Parts Name Role Phone Monica Garcia MD Primary Care Provider [phone] Encounter Details Date Type Department Care Team (Late st Contact Info) Description 01/06/2014 Telephone Obstetrics [place] [phone] Ramses Birch MD [facility] DR OBSTETRICS & [place] [address] Social History Tobacco Use Types Packs/Day Years Used Date Smoking Tobacco: Never Smokeless Tobacco: Never Alcohol Use Standard Drinks/Week Comments Yes 0 (1 standard drink = 0.6 oz pur e alcohol) occasionally social Sex and Gender Information Value Date Recorded Sex Assigned at Female 01/29/2022 12:45 PM EDT Gender Identity Female 03/23/2024 9:08 AM EDT Sexual Orientation Straight 03/23/2024 9: 08 AM EDT documented as of this encounter Miscellaneous Notes * Telephone Encounter - Ramses Birch - 01/06/2014 [...] she was transitioning to menopause and could come off of systemic hormones. I spoke with her and asked whether she wanted to do this at this time. She does not feel ready to as she is going through a move right now [...] 3:30 PM EST Office [place] [address] Tarik Henry MD [facility] [place] [address] 09/22/2024 7:00 AM EST Appointment Ultrasound at [place] [phone] Luis Michael Jr., MD [facility] [place] [address] 09/22/2024 8:00 AM EST Office Visit Urology at [place] [phone] Luis Michael Jr., MD [facility] [place] [address] documented as of this encounter Visit Diagnoses Not on filedocumented in this encounter Care Teams Assembler Sandal Parts Relationship Specialty Start Date End Date Monica Garcia MD [address] [place] [address] PCP - General 01/06/13 02/27/17 documented as of this encounter
--- OUTSIDE RECORDS SUMMARY | 2024-07-20 18:31 | XMS_ITS | Encounter Summary ---
Author Organization [facility] [place] [address] Care Team Providers Care Lead Front End Developer Name Role Phone Monica Garcia MD Primary Care Provider [phone] Reason for Visit * Reason Comments Osteoporosis Encounter Details Date Type Department Care Team (Late st Contact Info) Description 04/07/2015 1:40 PM EDT Office [place] [address] CLINIC, Cuate Augustine MD [facility] [place] [address] Osteoporosis Discharge Disposition: Home Social History Tobacco Use [...] kg (146 lb 3.2 oz) 04/07/2015 1:55 P M EDT Height 173 cm (5' 8.11) 04/07/2015 1:55 PM EDT Body Mass Index 22.16 04/07/2015 1:55 PM EDT documented in this encounter Progress Notes * Cuate Hall MD - 04/08/2015 11:14 AM [...] 46 y.o. year old female evaluated by BUSINESS SERVICES ASSISTANT and found to have osteoporosis on Dexa scan done 01/2011.Patient with history of Kidney stones-multiple, ESWL in 2007 andagain in 2009 with ureteral stents placement.Her work up in 2007 revealed increased urinary calciumexcretion but normal calcium and PTH.Tries to restrict [...] CT done for evaluation of nephrolithiasis. At thattime the patch was discontinued and was started on continuous OCPs to stop ovulation and menses. She was on continuous oral combined contraceptives (ovcon with [...] 3:30 PM EST Office Visit Orthopaedics at [place] [phone] Tarik Henry MD [facility] [place] [address] 09/22/2024 7:00 AM EST Appointment Ultrasound at [place] [phone] Luis Michael Jr., MD [facility] [place] [address] 09/22/2024 8:00 AM EST Office Visit Urology at [place] [phone] Luis Michael Jr., MD [facility] [place] [address] documented as of this encounter Visit Diagnoses Diagnosis Osteoporosis Osteoporosis, unspecified documented in this encounter Care Teams Lead Front End Developer Relationship Specialty Start Date End Date Monica Garcia MD [address] [place] [address] PCP - General 01/06/13 02/27/17 documented as of this encounter
--- OUTSIDE RECORDS SUMMARY | 2024-07-20 18:31 | XMS_ITS | Encounter Summary ---
[place] [address] Care Team Providers Care Commercial Technician Name Role Phone Monica Garcia MD Primary Care Provider [phone] Encounter Details Date Type Department Care Team (Latest Contact Info) Description 06/18/2014 1:18 PM EDT - 06/18/2014 11:59 PM EDT Hospital Encounter [place] [address] CLINIC, Monica Joy MD [address] [place], [place] [id number] Inconclusive mammogram Discharge Disposition: Home Social History Tobacco [...] (ACCUNEB) 0.63 mg/3 mL nebulizer solution 08/24/2010 amLODIPine (NORVASC) 5 mg Tablet Take 5 mg by mouth daily. 04/07/2015 ibuprofen (ADVIL;MOTRIN) 800 mg Tablet Take 800 mg by mouth every 6 hours as needed. 08/29/2015 oxyCODONE-acetaminophen (PERCOCET) 5-325 mg Tablet 03/11/2014 01/24/2015 estradiol-norethindrone (COMBIPATCH) 0.05-0.14 mg/[address] 1 patch onto the skin twice a week. 8 patch 12 06/10/2014 07/14/2014 amitriptyline (ELAVIL) 10 mg tablet Take 10 mg by mouth nightly. 04/07/2015 gabapentin (NEURONTIN) 100 mg capsule Take 100 mg by mouth every morning. 01/24/2015 cetirizine (ZYRTEC) 10 mg tablet Take 10 mg by mouth daily. 02/12/2022 MOMETASONE FUROATE (NASONEX NASL) by Nasal route daily. 05/31/2016 fluticasone-salmeterol (ADVAIR) 500-50 mcg/dose diskus inhaler Inhale 1 puff into the lungs 2 times daily as needed (winter time). 06/27/2017 Evening [place] Oil 500 mg Cap 08/24/2010 01/24/2015 FOLIC ACID/VITAMIN B COMP W-C (B-COMPLEX WITH VITAMIN C ORAL) 08/24/2010 04/10/2016 SUMATRIPTAN SUCCINATE (IMITREX ORAL) 08/24/2010 05/01/2016 tacrolimus (PROTOPIC) 0.1 % ointment 1 Appl(s) Top Twice daily 08/24/2010 02/12/2022 ERGOCALCIFEROL, VITAMIN D2, (VITAMIN D ORAL) 08/24/2010 016 KETOCONAZOLE (NIZORAL TOP) Apply topically. 08/24/2010 02/12/2022 documented as of this encounter Plan of Treatment Upcoming Encounters Date Type Department Care Team (Late st Contact Info) Description 08/07/2024 3:30 PM EST Office [place] [address] Tarik Henry MD [facility] [place] [address] 09/22/2024 7:00 AM EST Appointment [place] [phone] Luis Michael Jr., MD [facility] [place] [address] 09/22/2024 8:00 AM EST Office [place] [phone] Luis Michael Jr., MD [facility] [place] [address] documented as of this encounter Procedures Procedure Name Priority Date/Time Associated Diagnosis Comments MAMMO CALL BACK NO CHARGE Routine 06/18/2014 2:23 PM EDT Inconclusive mammogram documented in this encounter Results * Mammo call back No Charge (06/18/2014 2:23 PM EDT) Anatomical Region Laterality Modality Breast N/A Mammography 06/18/2014 2:23 PM EDT Narrative 06/22/2014 12:46 PM EDT BILATERAL DIRECT DIGITAL 2D/3D MAMMOGRAM 06/09/14 WITH A TECHNICAL CALLBACK OF THE RIGHT CC VIEW 06/18/14 ?? CLINICAL INDICATION: Technical callback of the Right CC view 06/18/14 to get more posterior tissue. ?? TECHNIQUE: 2D/3D bilateral CC and MLO views on 06/08/14 and RCC, LML, LMCC and LMML views on 06/18/14, all obtained with direct digital capture. This exam was evaluated by CAD version 8.3.17. ?? FINDINGS: The breasts are heterogeneously dense. ? No change or finding worrisome for malignancy is seen in either breast. ?? On 06/18/14 the images from the screening exam of 06/09/14 were reviewed and magnification views of calcifications in the lower, inner quadrant of the Left breast were obtained. Original reader felt that these were stable. However, I felt that magnification views were needed. These were obtained and then compared to multiple prior exams including routine CC and MLO and 90-degree ML views dating back to 10/20/03. There is an approximately 2.0 x 2.5 x 1.5cm loose grouping of several calcifications in the lower, outer quadrant at approximately 0400, 4cm to the nipple. On true lateral views many of these layer consistent with milk of calcium. The calcifications have increased somewhat in number of particles since 2003 but there is no change in morphology or worrisome distribution. These are considered benign calcifications. ?? CONCLUSION: ?? (BIRADS Category 2) Left breast for BENIGN calcifications, many of which are milk of calcium. ?? (BIRADS Category 1) NEGATIVE Right breast. ?? Patient may return to routine screening. ?? is associated with this study. ?? Procedure Note Sherrie Lewis MD - 06/22/2014 BILATERAL DIRECT DIGITAL 2D/3D MAMMOGRAM 06/09/14 WITH A TECHNICALCALLBACK OF THE RIGHT CC VIEW 06/18/14 CLINICAL INDICATION: Technical callback of the Right CC view 06/18/14 toget more posterior tissue. TECHNIQUE: 2D/3D bilateral CC and MLO views on 06/08/14 and RCC, LML, LMCCand LMML views on 06/18/14, all obtained with direct digital capture. Thisexam was evaluated by CAD version 8.3.17. FINDINGS: The breasts are heterogeneously dense. No change or finding worrisome for malignancy is seen in either breast. On 06/18/14 the images from the screening exam of 06/09/14 were reviewedand magnification views of calcifications in the lower, inner quadrant of theLeft breast were obtained. Original reader felt that these were stable.However, I felt that magnification views were needed. These were obtained and then compared to multiple prior exams including routine CC and MLO [id number] ML views dating back to 10/20/03. There is an approximately 2.0 x 2.5 x 1.5cmloose grouping of several calcifications in the lower, outer quadrant at approximately 0400, 4cm to the nipple. On true lateral views many of these layer consistent with milk of calcium. The calcifications have increased somewhat in number of particles since 2003 but there is no change inmorphology or worrisome distribution. These are considered benign calcifications. CONCLUSION: (BIRADS Category 2) Left breast for BENIGN calcifications, many of whichare milk of calcium. (BIRADS Category 1) NEGATIVE Right breast. Patient may return to routine screening. is associated with this study. Weston Figueroa MD IMG MAMMO ORDERABLES documented in this encounter Visit Diagnoses Diagnosis Inconclusive mammogram documented in this encounter Care Teams Commercial Technician Relationship Specialty Start Date End Date Monica Garcia MD [address] [place] [address] PCP - General 01/06/13 02/27/17 documented as of this encounter
--- OUTSIDE RECORDS SUMMARY | 2024-07-20 18:31 | XMS_ITS | Encounter Summary ---
Author Organization [facility] Victor [place] [address] Care Team Providers Care Occupational Therapy Co Director Name Role Phone Monica Garcia MD Primary Care Provider [phone] Reason for Visit * Reason Comments Contraception Encounter Details Date Type Department Care Team (Late st Contact Info) Description 05/01/2016 4:20 PM EDT Office Visit Obstetrics [place] [address] Ida Ron, SACHA [facility] OBSTETRICS & [place] [address] Encounter for IUD insertion; Unsatisfactory cervical Papanicolaou smear; Vulvar pain Social History Tobacco Use Types Packs/Day [...] 36.3 ??C (97.4 ??F) 05/01/2016 4:18 PM ED T Respiratory Rate 16 05/01/2016 4:18 PM EDT Oxygen Saturation 100% 05/01/2016 4:18 PM EDT Inhaled Oxygen Concentration - - Weight 65.8 kg (145 lb 1.6 oz) 05/01/2016 4:18 P M EDT Height 172.7 cm (5' 8) 05/01/2016 4:18 PM EDT Body Mass Index 22.06 05/01/2016 4:18 PM EDT documented in this encounter Progress Notes * Ida Ron, SACHA - 05/01/2016 4:20 PM EDT REASON FOR VISIT: IUD Placement, Pap, vulvar dryness Components Engineer: pt reports starting after her period stopped [...] saw. I reviewed notes and can not find anything. Last Pap last year unsatisfactory I saw [...] lesions or redness noted. When asked to pointto where labial discomfort is; she points to [...] inserted easily. Tenaculum removed, string trimmed to 2cm. Pt tolerated procedure well. A: Mirena IUD [...] 3:30 PM EST Office [place] [address] Tarik Henry MD [facility] [place] [address] 09/22/2024 7:00 AM EST Appointment [place] [phone] Luis Michael Jr., MD [facility] [place] [address] 09/22/2024 8:00 AM EST Office [place] [phone] Luis Michael Jr., MD [facility] [place] [address] documented as of this encounter Procedures Procedure Name Priority Date/Time Associated Diagnosis Comments HPV Routine 05/01/2016 5:32 PM EDT VOLCANOLOGY TEACHER CYTOLOGY INTERPRETATION Routine 05/01/2016 5:32 PM EDT VOLCANOLOGY TEACHER CYTOLOGY FINAL REPORT Routine 05/01/2016 5:32 PM EDT CYTOPATHOLOGY GYNECOLOGICAL Routine 05/01/2016 5:32 PM EDT Encounter for IUD insertion documented in this encounter Results * VOLCANOLOGY TEACHER Cytology Interpretation (05/01/2016 5:32 PM EDT) Components Engineer Cytology Interpretation [facility] Comment:Components Engineer Cytology Final R eport Endocervical Component Present [facility] AP Specimen 05/01/2016 5:32 PM EDT 05/04/2016 8:09 AM EDT Ida Ron SACHA PATHOLOGY/CYTOLOGY O RDERABLES [facility] [place] [address] * Components Engineer Cytology Final Report (05/01/2016 5:32 PM EDT) Components Engineer Cytology Final Report [id number] ? Location: 5L The signing pathologist has (i) examined the relevant preparation(s) for the specimen(s) and (ii) rendered or confirmed the diagnosis(es). . ? Components Engineer Final DIAGNOSIS Normal Negative for Intraepithelial Lesion or Malignancy (NILM). For consensus guidelines for the management of cervical cancer screening test results, please see: ?? http://www.asccp.o rg/guidelines . Electronically signed by: ??AVI Henson(ASCP)Suzie Verified: ??05/04/2016 ?Server Programmer Screened: ??05/04/2016 ?SLA HPV RESULTS HPV16 (Result) [...] Clinical Genomics and Advanced Technology (CGAT) at [facility]. ? - David Avilez, PhD, [facility], Director-[facility] STATEMENT OF ADEQUACY Specimen submitted is satisfactory. Endocervical component present. CLINICAL INFORMATION HPV Option: ?Concurrent HPV and Pap Preparation: ? Liquid based Pap Specimen Source: ? Cervical/Endocervi beena LMP: ? 8/19/16 Hormones?: ? Yes Hysterectomy?: ? No ?: ? No ?: ? No I.U.D.?: ? No Pelvic Radiation: ?No Prior VOLCANOLOGY TEACHER Therapy?: ?Cautery Hist Abnl Pap/Biopsy?: ?? Yes, history of previous abnormal Pap Hist of HPV Vaccine?: ?No Hist of Smoking?: ?No Hist of HAZEL exposure?: ?? No ICD Diagnosis: ? Z12.4 Encounter for screening for malignant neoplasm of cervix Clinical Data, Significant Therapy and Clinical Impression ?? : ?_ . CLINICAL INFORMATION This Pap Test has been evaluated with the assistance of the ChooslyPrep Pap Test Imaging System. Note: The Pap test is a screening test for cervical cancer with an inherent false-negative rate dependent upon several variables. ??For further information please contact the [facility] Laboratory. Reference: ??Absander CS. ??Human Resources Specialist of Pap Smear Results. ??In: ??Sukumar BS, Roni HH, ed. ??The Pap Smear. ??[place]: ??Jonah, 2002: ??71-77. [facility] 05/01/2016 5:32 PM EDT Ida Mcintosh Asaf GONCALVES PATHOLOGY/CYTOLOGY O RDERABLES Performing Organization Address [facility] [place] [address] * HPV (05/01/2016 5:32 PM EDT) HPV16 NEGATIVE NEGATIVE [facility] HPV 18 NEGATIVE NEGATIVE [facility] HPV Other HR NEGATIVE NEGATIVE [facility] HPV Interpretation See Comment [facility] Comment: NEGATIVE for high-risk HPV [...] Cytology Liquid Based Prep Cervical swab (specimen) 05/01/2016 5:32 PM EDT 05/01/2016 5:38 PM EDT Narrative Resulting Agency Comment Spec In Lab Ida Ron APRN PATHOLOGY/CYTOLOGY O RDERAMITZI Performing Organization Address [facility] Co de Phone Number [facility] [place] [address] * Cytopathology Gynecological (05/01/2016 5:32 PM EDT) AP Specimen 05/01/2016 5:32 PM EDT 05/01/2016 5:37 PM EDT Narrative [facility] - 05/01/2016 5:37 PM EDT Specimen requisition ordered. ??Separate Pathology report to follow Resulting Agency Comment Spec In Lab Taryn Banks MD PATHOLOGY/CYTOLOGY ORDERABLES Performing Organization Address City/[facility]/ZIP Co de Phone Number [facility] [place] [address] documented in this encounter Visit Diagnoses Diagnosis Encounter for IUD insertion Encounter for insertion of intrauterine contraceptive device Unsatisfactory cervical Papanicolaou smear Unsatisfactory cervical cytology smear Vulvar pain Unspecified symptom associated with female genital organs documented in this encounter Administered Medications Inactive Administered Medications - up to 3 most recent administrations Medication Order MAR Action Action Date Dose Rate Site levonorgestrel (MIRENA) 20 mcg/24 hr intra-uterine device 1 Intra Uterine Device, Intrauterine, ONCE, 1 dose, On Sat05/01/16 at 1800, Routine Inserted 05/01/2016 5:32 PM EDT 1 Intra Uterine Device documented in this encounter Care Teams Occupational Therapy Co Director Relationship Specialty Start Date End Date Monica Garcia MD [address] [place] [address] PCP - General 01/06/13 02/27/17 documented as of this encounter
--- OUTSIDE RECORDS SUMMARY | 2024-07-20 18:31 | XMS_ITS | Encounter Summary ---
Author Organization [facility] [place] [address] Care Team Providers Care Boarding Specialist Name Role Phone Monica Garcia MD Primary Care Provider [phone] Reason for Visit * Reason Onset Date Comments Medication Refill 07/06/2015 Encounter Details Date Type Department Care Team (Late st Contact Info) Description 07/06/2015 Refill Obstetrics [place] [address] Ida Ron, MANAGEMENT SME [facility] OBSTETRICS & [place] [address] Social History Tobacco Use Types Packs/Day Years [...] encounter Miscellaneous Notes * Telephone Encounter - Marley Montes - 07/06/2015 10:52 AM EST PER PATIENT REQUEST documented in this encounter Plan of Treatment Upcoming Encounters Date Type Department Care Team (Late st Contact Info) Description 08/07/2024 3:30 PM EST Office Visit Orthopaedics at [place] [phone] Tarik Henry MD [facility] [place] [address] 09/22/2024 7:00 AM EST Appointment Ultrasound at [address] Luis Michael Jr., MD [facility] [place] [address] 09/22/2024 8:00 AM EST Office [place] [address] Luis Michael Jr., MD [facility] [place] [address] documented as of this encounter Visit Diagnoses Not on filedocumented in this encounter Care Teams Boarding Specialist Relationship Specialty Start Date End Date Monica Garcia MD [address] [place] [address] PCP - General 01/06/13 02/27/17 documented as of this encounter
--- OUTSIDE RECORDS SUMMARY | 2024-07-20 18:31 | XMS_ITS | Encounter Summary ---
Author Organization [facility] Address [facility] [place] [address] Care Team Providers Care Power Marketer Name Role Phone Monica Garcia MD Primary Care Provider [phone] Encounter Details Date Type Department Care Team (Late st Contact Info) Description 04/07/2015 10:58 AM EDT - 04/07/2015 11:59 PM EDT Hospital Encounter XRay at [address] [place] [address] Osteoporosis Social History Tobacco Use Types Packs/Day Years [...] (ACCUNEB) 0.63 mg/3 mL nebulizer solution 08/24/2010 polyethylene glycol (MIRALAX) 17 gram/dose Powder 03/28/2015 [...] PM EST Office [place] [phone] Tarik Henry MD [facility] [place] [address] 09/22/2024 7:00 AM EST Appointment [place] [phone] Luis Michael Jr., MD [facility] [place] [address] 09/22/2024 8:00 AM EST Office [place] [phone] Luis Michael Jr., MD [facility] [place] [address] documented as of this encounter Procedures Procedure Name Priority Date/Time Associated Diagnosis Comments DXA CENTRAL SPINE, HIP, AND/OR WHOLE BODY (GENERIC) Routine 04/07/2015 11:29 AM EDT documented in this encounter Results * Dexa central-spine, hip, and/or whole body (04/07/2015 11:29 AM EDT) Anatomical Region Laterality Modality C-spine, Hip N/A Radiographic Rafaela ging 04/07/2015 11:2 9 AM EDT Impressions 04/11/2015 4:44 PM EDT IMPRESSION: No significant change comparison the previous studies. Osteoporosis by WHO criteria. Estimating Fracture [...] ? DEXA data sheets with BMD measurements and plots are available in [employer] under the imaging tab. Paper copies will be sent to providers without [employer] access. If you have received this report without the data sheet and do not have access to [employer], please contact Radiology Plate Glass Installer Helper at [phone] Saturday thru Saturday 8am-4pm. Narrative 04/11/2015 4:44 PM EDT EXAMINATION: DXA CENTRAL SPINEHIP AND OR WHOLE BODY CLINICAL HISTORY: osteoporosis;last 02/05 TECHNIQUE: Scans were acquired at the lumbar spine, and the left hip. FINDINGS: Lowest T-score at the diagnostic region of interest: T-score: -2.6, TENZIN: Femoral neck, WHO diagnosis: Osteoporosis. ......... Comparison......... Recent scan: 02/16/2013, Baseline scan: 02/13/2011 Total hip: Compared to the most recent scan, not significant changed. Compared to the baseline scan, not significantly changed. Total spine: Compared to the most recent scan, not significantly changed. Compared to the baseline scan, not significantly changed. Procedure Note Sanket Zhou MD - 04/11/2015 EXAMINATION: DXA CENTRAL SPINEHIP AND OR WHOLE BODY CLINICAL HISTORY: osteoporosis;last 02/05 TECHNIQUE: Scans were acquired at the lumbar spine, and the left hip. FINDINGS: Lowest T-score at the diagnostic region of interest: T-score: -2.6, TENZIN: Femoral neck, WHO diagnosis: Osteoporosis. ......... Comparison......... Recent scan: 02/16/2013, Baseline scan: 02/13/2011 Total hip: Compared to the most recent scan, not significant changed. Compared to the baseline scan, not significantly changed. Total spine: Compared to the most recent scan, not significantly changed. Compared to the baseline scan, not significantly changed. IMPRESSION IMPRESSION: No significant change comparison the previous studies. Osteoporosis by WHO criteria. Estimating Fracture [...] ? DEXA data sheets with BMD measurements and plots are available in [employer] the imaging tab. Paper copies will be sent to providers without [employer] access.If you have received this report without the data sheet and do not haveaccess to [employer], please contact Radiology Plate Glass Installer Helper at [phone] Saturday thruFrid 8am-4pm. Cuate Hall MD IMG DEXA ORDERABLES documented in this encounter Visit Diagnoses Diagnosis Osteoporosis Osteoporosis, unspecified documented in this encounter Care Teams Power Marketer Relationship Specialty Start Date End Date Monica Garcia MD [address] [place] [address] PCP - General 01/06/13 02/27/17 documented as of this encounter
--- OUTSIDE RECORDS SUMMARY | 2024-07-20 18:31 | XMS_ITS | Encounter Summary ---
Author Organization [facility] [place] [address] Care Team Providers Care Software Reverse Engineer Name Role Phone Janet Davey SACHA Primary Care Provider [phone] Reason for Visit * Reason Comments Medication Refill Encounter Details Date Type Department Care Team (Late st Contact Info) Description 08/21/2015 Refill Obstetrics [place] [address] Ida Ron APRN [facility] DR OBSTETRICS [place] [address] Social History Tobacco Use Types Packs/Day Years [...] 3:30 PM EST Office [place] [phone] Tarik Henry MD [facility] [place] [address] 09/22/2024 7:00 AM EST [place] [address] Luis Michael Jr., MD [facility] [place] [address] 09/22/2024 8:00 AM EST [place] [address] Luis Michael Jr., MD [facility] [place] [address] documented as of this encounter Visit Diagnoses Not on filedocumented in this encounter Care Teams Software Reverse Engineer Relationship Specialty Start Date End Date Janet Davey APRN PCP - General Family Medicine 07/13/20 02/10/24 documented as of this encounter
--- OUTSIDE RECORDS SUMMARY | 2024-07-20 18:31 | XMS_ITS | Encounter Summary ---
Author Organization [facility] [place] [address] Care Team Providers Care Greens Laborer Name Role Phone Monica Garcia MD Primary Care Provider [phone] Reason for Visit * Reason Comments Follow-up EMB Encounter Details Date Type Department Care Team (Late st Contact Info) Description 08/29/2015 7:40 AM EST Office Visit Obstetrics [place] [address] Ida Ron, INSTRUCTOR TRAINER CANINE SERVICE [facility] OBSTETRICS & [place] [address] Abnormal uterine bleeding (AUB) Social History Tobacco Use Types Packs/Day Years [...] kg (153 lb 4.8 oz) 08/29/2015 7:36 A M EST Height - - Body Mass Index 23.31 07/26/2015 3:53 PM EST documented in this encounter Progress Notes * Ida Ron APRN - 08/29/2015 7:46 AM EST Reason for visit: AUB HPI: I saw pt 06/28/15. ROS: WELL PULLER HEAD: She is currently using the Estradiol 0.1 [...] pad a couple times a day. 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 She has agreed to an EMB. Risks [...] 3:30 PM EST [place] [address] Tarik Henry MD [facility] [place] [address] 09/22/2024 7:00 AM [place] [address] Luis Michael Jr., MD [facility] [place] [address] 09/22/2024 8:00 AM EST [place] [address] Luis Michael Jr., MD [facility] [place] [address] documented as of this encounter Procedures Procedure Name Priority Date/Time Associated Diagnosis Comments SPECIMEN TO PATHOLOGY (NON-OR) Routine 08/29/2015 8:20 AM EST Abnormal uterine bleeding (AUB) SURGICAL PATHOLOGY REPORT Routine 08/29/2015 8:20 AM EST documented in this encounter Results * Surgical Pathology Report (08/29/2015 8:20 AM EST) Final Diagnosis [id number] ? Location: 5L The signing pathologist has (i) examined the relevant preparation(s) for the specimen(s) and (ii) rendered or confirmed the diagnosis(es). . ?Surgical Pathology DIAGNOSIS Endometrial biopsy: 1. Fragments of benign proliferative endometrium intermixed with blood clot. 2. No evidence of hyperplasia or endometritis. CR-0 08/31/15 LJT 08/31/15 Verified by: ? Yolanda GILL, Jessica Gee ?Pathologist ?(Electronic Signature) The attending pathologist whose signature appears on this report has reviewed all diagnostic slides and has edited the gross and/or microscopic portion of the report in rendering the final pathologic diagnosis. CLINICAL INFORMATION Specimen Submitted: A - Endometrial biopsy Clinical History: Abnormal uterine bleeding Clinical Diagnosis: Same SPECIMEN PROCESSING A - Labeled/Fixative: Patient demographics, formalin. Quantity/Size: Fragments, collectively 1.0 x 1.0 x 0.5 cm. Tissue Description: Soft, pink-reyes mucoid tissue. Sections/Processi ng: (T1) ??ejr 08/31/2015 9:39 AM EST [facility] ENDOMETRIAL STRUCTURE / Unknown 08/29/2015 8:20 AM EST 08/29/2015 8:20 AM EST Ida Ron APRN PATHOLOGY/CYTOLOGY O RDERABLES Performing Organization Address City/[facility]/ZIP Co de Phone Number [facility] [place] [address] * Specimen to Pathology (NON-OR) (08/29/2015 8:20 AM EST) AP Specimen 08/29/2015 8:20 AM EST 08/29/2015 8:20 AM EST Narrative KYRA ARAMISASHA - 08/29/2015 8:20 AM EST Specimen requisition ordered. ??Separate Pathology report to follow Taryn Banks MD PATHOLOGY/CYTOLOGY ORDERABLES Performing Organization Address City/[facility]/ZIP Co de Phone Number KYRA QUAN documented in this encounter Visit Diagnoses Diagnosis Abnormal uterine bleeding (AUB) documented in this encounter Care Teams Greens Laborer Relationship Specialty Start Date End Date Monica Garcia MD [address] [place] [address] PCP - General 01/06/13 02/27/17 documented as of this encounter
--- OUTSIDE RECORDS SUMMARY | 2024-07-20 18:31 | XMS_ITS | Encounter Summary ---
Author Organization [facility] [place] [address] Care Team Providers Care Group Sales Coordinator Name Role Phone Monica Garcia MD Primary Care Provider [phone] Reason for Visit * Reason Comments Follow-up Encounter Details Date Type Department Care Team (Late st Contact Info) Description 05/31/2016 4:00 PM EDT Office Visit Obstetrics [place] [address] Ida Ron, MARKET RISK SPECIALIST [facility] OBSTETRICS & [place] [address] IUD check up Social History Tobacco Use Types Packs/Day Years [...] 36.5 ??C (97.7 ??F) 05/31/2016 4:09 PM ED T Respiratory Rate 16 05/31/2016 4:09 PM EDT Oxygen Saturation 100% 05/31/2016 4:09 PM EDT Inhaled Oxygen Concentration - - Weight 66 kg (145 lb 9.6 oz) 05/31/2016 4:09 PM EDT Height 172.7 cm (5' 8) 05/31/2016 4:09 PM EDT Body Mass Index 22.14 05/31/2016 4:09 PM EDT documented in this encounter Progress Notes * Ida Ron APRN - 05/31/2016 4:00 PM EDT Reason for visit: IUD string check HPI: Pt is a yo G P female whom I placed a Mirena IUD in last month. She reports continued bleeding, spotting, no cramping, no fever or abnormal d/c. Her partner does not feel it. She has no concernsat this time. She is using this for [...] EST Office Visit Orthopaedics at [place] [phone] Tarik Henry MD [facility] [place] [address] 09/22/2024 7:00 AM EST Appointment Ultrasound at [place] [phone] Luis Michael Jr., MD [facility] [place] [address] 09/22/2024 8:00 AM EST Office Visit Urology at [place] [phone] Luis Michael Jr., MD [facility] [place] [address] documented as of this encounter Visit Diagnoses Diagnosis IUD check up Surveillance of previously prescribed intrauterine contraceptive device documented in this encounter Care Teams Group Sales Coordinator Relationship Specialty Start Date End Date Monica Garcia MD [address] [place] [address] PCP - General 01/06/13 02/27/17 documented as of this encounter
--- OUTSIDE RECORDS SUMMARY | 2024-07-20 18:31 | XMS_ITS | Encounter Summary ---
Author Organization [facility] [place] [address] Care Team Providers Care Footwear Machinery Instructor Name Role Phone Monica Garcia MD Primary Care Provider [phone] Reason for Visit * Reason Onset Date Comments Medication Refill 04/23/2014 Encounter Details Date Type Department Care Team (Late st Contact Info) Description 04/23/2014 Refill Obstetrics [place] [phone] Aundrea Pretty RN Social History Tobacco Use Types Packs/Day [...] 3:30 PM EST Office [place] [phone] Tarik Henry MD [facility] [place] [address] 09/22/2024 7:00 AM EST [place] [phone] Luis Michael Jr., MD [facility] [place] [address] 09/22/2024 8:00 AM EST Office Visit Urology at [facility] [place] [address] Luis Michael Jr., MD [facility] [place] [address] documented as of this encounter Visit Diagnoses Not on filedocumented in this encounter Care Teams Footwear Machinery Instructor Relationship Specialty Start Date End Date Monica Garcia MD [address] [place] [address] PCP - General 01/06/13 02/27/17 documented as of this encounter
--- OUTSIDE RECORDS SUMMARY | 2024-07-20 18:31 | XMS_ITS | Encounter Summary ---
[place] [address] Care Team Providers Care Drama Therapist Name Role Phone Monica Garcia MD Primary Care Provider [phone] Encounter Details Date Type Department Care Team (Late st Contact Info) Description 04/24/2013 10:21 AM EDT - 04/24/2013 11:59 PM EDT Hospital [place] [address] Social History Tobacco Use Types Packs/Day Years [...] (ACCUNEB) 0.63 mg/3 mL nebulizer solution 08/24/2010 amitriptyline (ELAVIL) 10 mg tablet Take 10 mg by mouth nightly. 04/07/2015 gabapentin (NEURONTIN) 100 mg capsule Take 100 mg by mouth every morning. 01/24/2015 CLIMARA PRO 0.045-0.015 mg/24 hr apply 1 patch every week 12 patch 3 01/17/2013 01/06/2014 cetirizine (ZYRTEC) 10 mg tablet Take 10 mg by mouth daily. 02/12/2022 MOMETASONE FUROATE (NASONEX NASL) by Nasal route daily. 05/31/2016 fluticasone-salmeterol (ADVAIR) 500-50 mcg/dose diskus inhaler Inhale 1 puff into the lungs 2 times daily as needed (winter time). 06/27/2017 Evening [place] Oil 500 mg Cap 08/24/2010 01/24/2015 FOLIC [...] 3:30 PM EST Office [place] [phone] Tarik Henry MD [facility] [place] [address] 09/22/2024 7:00 AM EST [place] [phone] Luis Michael Jr., MD [facility] [place] [address] 09/22/2024 8:00 AM EST [place] [phone] Luis Michael Jr., MD [facility] [address] documented as of this encounter Procedures Procedure Name Priority Date/Time Associated Diagnosis Comments MAMMO SCREENING CAD BILATERAL Routine 04/24/2013 11:15 AM EDT documented in this encounter Results * Mammo digital bilateral Screening with CAD (04/24/2013 11:15 AM EDT) Anatomical Region Laterality Modality Breast Bilateral Mammography 04/24/2013 11:1 5 AM EDT Narrative 04/28/2013 10:04 AM EDT Reason for Exam: Screening Technique: Craniocaudal (CC) and Medio-lateral Oblique (MLO) views of both breasts obtained with direct digital capture. In addition to the routine 2D imaging this exam was also performed with 3D tomographic imaging in MLO and CC projections. The exam was evaluated by CAD version 8.3.17. Findings: This is a negative mammogram (ACR Category 1). ??There is a stable fibroglandular pattern without significant change from prior studies. There is no mammographic evidence of cancer. ??The breasts are heterogeneously dense which limits mammographic sensitivity for the detection of malignancy. CONCLUSION: This is a NEGATIVE mammogram (ACR Category 1). ?? Routine screening mammography is recommended with the frequency dependent upon the patient's age and breast cancer risk factors. A letter has been sent to this patient by the breast imaging center. Procedure Note Janey Alvarez MD - 04/28/2013 Reason for Exam: Screening Technique: Craniocaudal (CC) and Medio-lateral Oblique (MLO) views of both breasts obtained with direct digital capture. In addition to the routine 2D imaging this exam was also performed with 3D tomographic imaging in MLO and CC projections. The exam was evaluated by CAD version 8.3.17. Findings: This is a negative mammogram (ACR Category 1). There is a stable fibroglandular pattern without significant change from prior studies. There is no mammographic evidence of cancer. The breasts areheterogeneously dense which limits mammographic sensitivity for the detection ofmalignancy. CONCLUSION: This is a NEGATIVE mammogram (ACR Category 1). Routine screening mammography is recommended with the frequency dependentupon the patient's age and breast cancer risk factors. A letter has been sent to this patient by the breast imaging center. Ramses Birch MD IMG MAMMO ORDERABLES documented in this encounter Visit Diagnoses Not on filedocumented in this encounter Care Teams Drama Therapist Relationship Specialty Start Date End Date Monica Garcia MD [address] [place] [address] PCP - General 01/06/13 02/27/17 documented as of this encounter
--- OUTSIDE RECORDS SUMMARY | 2024-07-20 18:31 | XMS_ITS | Encounter Summary ---
Author Organization [facility] [place] [address] Care Team Providers Care Accountant Cost Name Role Phone Monica Garcia MD Primary Care Provider [phone] Encounter Details Date Type Department Care Team (Late st Contact Info) Description 12/01/2013 [place] [phone] Ferdinand Michael Jr., MD [facility] [place] [address] Kidney stones (Primary Dx) Social History Tobacco Use Types [...] 3:30 PM EST [place] [phone] Tarik Henry MD [facility] ORTHOPAEDIC [place] [address] 09/22/2024 7:00 AM EST [place] [address] Ferdinand Michael Jr., MD [facility] [place] [address] 09/22/2024 8:00 AM EST [place] [phone] Ferdinand Michael Jr., MD [facility] [place] [address] documented as of this encounter Results * US retroperitoneal complete (02/23/2014 4:21 PM EDT) Anatomical Region Laterality Modality Abdomen Ultrasound 02/23/2014 4:21 PM EDT Narrative 02/23/2014 5:21 PM EDT ? Renal ?(Signed Final 02/23/2014 05:20 pm) Patient Info ID: ?[id number] ?: ??[birth year] (48 yrs) Name: ?JESSICA GTZ ?Visit Date: 02/23/2014 04:19 pm Performed By Performed By: ?Mariann Leonard RDMS Associate: ? Bobby Barboza MD Attending: ? Genie Carrasco MD Referred By: ? FERDINAND MICHAEL MD Service(s) Provided URETRO - Retroperitoneal Complete - [id number] ? [id number] Indications Hx of kidney stones Comparison Renal/bladder ultrasound 01/06/13. Right Kidney Size (cm) ?L: ??9.4 Cortical Thickness: ? Normal Cortical Echogenicity: ??Normal Hydronephrosis: ? No sonographic evidence Comment: ?No renal calculi seen. Left Kidney Size (cm) ?L: ??10.1 Cortical Thickness: ? Normal Cortical Echogenicity: ??Normal Hydronephrosis: ? No sonographic evidence Comment: ?No renal calculi seen. Urinary Bladder Comment: ?Partially distended, normal contour. Impression Ultrasound - ??Retroperitoneal Complete - Summary No sonographically evident nephrolithiasis or hydronephrosis. Normal bladder. I ??viewed the images and agree with the above interpretation. Thank you for allowing us to participate in the care of JESSICA GTZ. Please do not hesitate to call if you have any questions. ?Genie Carrasco MD Electronically Signed Final Report ?? 02/23/2014 05:20 pm Film and interpretation reviewed by the attending Procedure Note Genie Carrasco MD - 02/23/2014 Renal (Signed Final 02/23/2014 05:20 pm) Patient Info ID: [id number] : [birth year] (48 yrs) Name: JESSICA GTZ Visit Date: 02/23/2014 04:19 pm Performed By Performed By: Mariann Leonard RDMS Associate: Bobby Barboza MD Attending: Genie Carrasco MD Referred By: FERDINAND MICHAEL MD Service(s) Provided URETRO - Retroperitoneal Complete - [id number] Indications Hx of kidney stones Comparison Renal/bladder ultrasound 01/06/13. Right Kidney Size (cm) L: 9.4 Cortical Thickness: Normal Cortical Echogenicity: Normal Hydronephrosis: No sonographic evidence Comment: No renal calculi seen. Left Kidney Size (cm) L: 10.1 Cortical Thickness: Normal Cortical Echogenicity: Normal Hydronephrosis: No sonographic evidence Comment: No renal calculi seen. Urinary Bladder Comment: Partially distended, normal contour. Impression Ultrasound - Retroperitoneal Complete - Summary No sonographically evident nephrolithiasis or hydronephrosis. Normal bladder. I viewed the images and agree with the above interpretation. Thank you for allowing us to participate in the care of JESSICA GTZ. Please do not hesitate to call if you have any questions. Genie Carrasco MD Electronically Signed Final Report 02/23/2014 05:20 pm Film and interpretation reviewed by the attending Ferdinand Michael Jr., MD IMG US GEN ORDERAB LES documented in this encounter Visit Diagnoses Diagnosis Kidney stones- Primary Calculus of kidney Kidney stones Calculus of kidney documented in this encounter Care Teams Accountant Cost Relationship Specialty Start Date End Date Monica Garcia MD [address] [place] [address] PCP - General 01/06/13 02/27/17 documented as of this encounter
--- OUTSIDE RECORDS SUMMARY | 2024-07-20 18:31 | XMS_ITS | Encounter Summary ---
[place] [address] Care Team Providers Care Certified Registered Dental Assistant Name Role Phone Monica Garcia MD Primary Care Provider [phone] Encounter Details Date Type Department Care Team (Late st Contact Info) Description 06/18/2014 1:58 PM EDT - 06/18/2014 11:59 PM EDT Hospital [place] [address] Social History Tobacco Use Types Packs/Day Years [...] daily as needed (winter time). 06/27/2017 Evening [place] Oil 500 mg Cap 08/24/2010 01/24/2015 FOLIC [...] 3:30 PM EST Office [place] [phone] Tarik Henry MD [facility] [place] [address] 09/22/2024 7:00 AM EST [place] [phone] Luis Michael Jr., MD [facility] [place] [address] 09/22/2024 8:00 AM EST Office Visit Urology at [facility] [place] [address] Luis Michael Jr., MD [facility] [place] [address] documented as of this encounter Procedures Procedure Name Priority Date/Time Associated Diagnosis Comments MAMMO CALL BACK DIAGNOSTIC EXTRA VIEW UNILATERAL Routine 06/18/2014 2:24 PM EDT documented in this encounter Results * Mammo call back diagnostic extra view unilateral (06/18/2014 2:24 PM EDT) Anatomical Region Laterality Modality Breast N/A Mammography 06/18/2014 2:24 PM EDT Narrative 06/22/2014 12:46 [...] prior exams including routine CC and MLO [id number] ML views dating back to 10/20/03. There [...] routine screening. is associated with this study. Ida Ron SACHA IMG MAMMO ORDERABLES documented in this encounter Visit Diagnoses Not on filedocumented in this encounter Care Teams Certified Registered Dental Assistant Relationship Specialty Start Date End Date Monica Garcia MD [address] [place] [address] PCP - General 01/06/13 02/27/17 documented as of this encounter
--- OUTSIDE RECORDS SUMMARY | 2024-07-20 18:31 | XMS_ITS | Encounter Summary ---
[place] [address] Care Team Providers Care Unstacker Name Role Phone Monica Garcia MD Primary Care Provider [phone] Encounter Details Date Type Department Care Team (Late st Contact Info) Description 06/09/2014 3:15 PM EDT - 06/09/2014 11:59 PM EDT Hospital [place] [address] Social History Tobacco Use Types Packs/Day Years [...] daily as needed (winter time). 06/27/2017 Evening O[place] Oil 500 mg Cap 08/24/2010 01/24/2015 FOLIC [...] 3:30 PM EST Office [place] [address] Tarik Henry MD [facility] [place] [address] 09/22/2024 7:00 AM EST [place] [address] Luis Michael Jr., MD [facility] [place] [address] 09/22/2024 8:00 AM EST Office Visit Urology at [facility] [place] [address] Luis Michael Jr., MD [facility] [place] [address] documented as of this encounter Procedures Procedure Name Priority Date/Time Associated Diagnosis Comments MAMMO SCREENING CAD BILATERAL Routine 06/09/2014 3:37 PM EDT documented in this encounter Results * Mammo digital bilateral Screening with CAD (06/09/2014 3:37 PM EDT) Anatomical Region Laterality Modality Breast Bilateral Mammography 06/09/2014 3:37 PM EDT Narrative 06/22/2014 12:45 [...] may return to routine screening. ?? and [id number] are associated with this study. ?? Procedure Note [...] prior exams including routine CC and MLO [id number] ML views dating back to 10/20/03. There [...] breast. Patient may return to routine screening. and [id number] are associated with this study. Ida Ron WORK STATION SUPPORT SPECIALIST IMG MAMMO ORDERABLES documented in this encounter Visit Diagnoses Not on filedocumented in this encounter Care Teams Unstacker Relationship Specialty Start Date End Date Monica Garcia MD [address] [place] [address] PCP - General 01/06/13 02/27/17 documented as of this encounter
--- OUTSIDE RECORDS SUMMARY | 2024-07-20 18:31 | XMS_ITS | Encounter Summary ---
Author Organization [facility] [place] [address] Care Team Providers Care Government Guard Name Role Phone David Lockhart Primary Care Provider [phone] Reason for Visit * Reason Comments Medication Refill Encounter Details Date Type Department Care Team (Late st Contact Info) Description 01/02/2014 Refill Obstetrics [place] [phone] Genoveva Nunez MD [facility] [address] [place] [address] Social History Tobacco Use Types Packs/Day Years [...] 3:30 PM EST Office [place] [phone] Tarik Henry MD [facility] [place] [address] 09/22/2024 7:00 AM EST [place] [address] Luis Michael Jr., MD [facility] [place] [address] 09/22/2024 8:00 AM EST Office [place] [address] Luis Michael Jr., MD [facility] [address] documented as of this encounter Visit Diagnoses Not on filedocumented in this encounter Care Teams Government Guard Relationship Specialty Start Date End Date David Lockhart PA [address] [place] [address] PCP - General Family Medicine 02/11/24 documented as of this encounter
--- OUTSIDE RECORDS SUMMARY | 2024-07-20 18:31 | XMS_ITS | Encounter Summary ---
Author Organization [facility] [place] [address] Care Team Providers Care Software Licensing Executive Name Role Phone Monica Garcia MD Primary Care Provider [phone] Encounter Details Date Type Department Care Team (Late st Contact Info) Description 07/14/2014 Orders Only Obstetrics [place] [phone] [facility] OBSTETRICS & [place] [address] Social History Tobacco Use Types Packs/Day Years [...] 3:30 PM EST Office [place] [address] [facility] [place] [address] 09/22/2024 7:00 AM EST [place] [address] Luis Michael Jr., MD [facility] [place] [address] 09/22/2024 8:00 AM EST [place] [address] Luis Michael Jr., MD [facility] [place] [address] documented as of this encounter Visit Diagnoses Not on filedocumented in this encounter Care Teams Software Licensing Executive Relationship Specialty Start Date End Date Monica Garcia MD [address] [place] [address] PCP - General 01/06/13 02/27/17 documented as of this encounter
--- OUTSIDE RECORDS SUMMARY | 2024-07-20 18:31 | XMS_ITS | Encounter Summary ---
Author Organization [facility] [place] [address] Care Team Providers Care Business Process Engineer Name Role Phone Monica Garcia MD Primary Care Provider [phone] Encounter Details Date Type Department Care Team (Latest Contact Info) Description 04/10/2016 1:00 PM EDT Office Visit Obstetrics [place] [address] Ida Ron [address]N [facility] OBSTETRICS & [place] [address] Abnormal perimenopausal bleeding Social History Tobacco Use Types Packs/Day Years [...] kg (144 lb 9.6 oz) 04/10/2016 1:01 P M EDT Height - - Body Mass Index 21.99 07/26/2015 3:53 PM EST documented in this encounter Progress Notes * Aylin Fenton LPN - 04/10/2016 1:00 PM EDT Increase/duration in freq when bleed, spotted last 10d * Ida Ron APRN - 04/10/2016 1:00 PM [...] was doing fine, cycling regularly until December; she had 2 periods in December; first one flowed for 8 days; December 24, then January 13, then February 23, thenJuly . [place] spotting since the . She loves her Estradiol 0.1 mg patch in terms of her moods, and vaginal lubrication. She would like to know if the Mirena IUD would be appropriate for this.She has a friend who has this and [...] 3:30 PM EST Office [place] [address] Tarik Henry MD [facility] DR [place] [address] 09/22/2024 7:00 AM EST [place] [address] Luis Michael Jr., MD [facility] [place] [address] 09/22/2024 8:00 AM EST [place] [address] Luis Michael Jr., MD [facility] [place] [address] documented as of this encounter Visit Diagnoses Diagnosis Abnormal perimenopausal bleeding Premenopausal menorrhagia documented in this encounter Care Teams Business Process Engineer Relationship Specialty Start Date End Date Monica Garcia MD [address] [place] [address] PCP - General 01/06/13 02/27/17 documented as of this encounter
--- OUTSIDE RECORDS SUMMARY | 2024-07-20 18:31 | XMS_ITS | Encounter Summary ---
Author Organization [facility] [place] [address] Care Team Providers Care Customer Success Representative Name Role Phone Monica Garcia MD Primary Care Provider [phone] Encounter Details Date Type Department Care Team (Late st Contact Info) Description 07/07/2015 Orders Only Obstetrics [place] [phone] Ida Ron APRN [facility] OBSTETRICS & [place] [address] Social History Tobacco Use Types Packs/Day Years [...] 3:30 PM EST Office [place] [phone] Tarik Henry MD [facility] [place] [address] 09/22/2024 7:00 AM EST Appointment [place] [address] Luis Michael Jr., MD [facility] [place] [address] 09/22/2024 8:00 AM EST Office [place] [address] Luis Michael Jr., MD [facility] [place] [address] documented as of this encounter Visit Diagnoses Not on filedocumented in this encounter Care Teams Customer Success Representative Relationship Specialty Start Date End Date Monica Garcia MD [address] [place] [address] PCP - General 01/06/13 02/27/17 documented as of this encounter
--- OUTSIDE RECORDS SUMMARY | 2024-07-20 18:31 | XMS_ITS | Encounter Summary ---
Author Organization [facility] [place] [address] Care Team Providers Care Medical Administrative Specialist Name Role Phone Monica Garcia MD Primary Care Provider [phone] Reason for Referral * MRI/CAT Scan (Routine) - Closed Specialty Diagnoses / Procedures Referred By Contac t Referred To Contact Radiology Diagnoses Ultrasound for screening for growth restriction Procedures US Retroperitoneal Complete Ferdinand Michael Jr., MD [facility] [place] [address] [facility] [address] Referral ID Status Reason Start Date Expiration Date Visits Re quested Visits Authorized [id number] Closed 05/15/2016 05/15/2017 1 1 Reason for Visit * MRI/CAT Scan (Routine) - Closed Specialty Diagnoses / Procedures Referred By Contac t Referred To Contact Radiology Diagnoses Ultrasound for screening for growth restriction Procedures US Retroperitoneal Complete Ferdinand Micahel Jr., MD [facility] [place] [address] [facility] [address] Referral ID Status Reason Start Date Expiration Date Visits Re quested Visits Authorized [id number] Closed 05/15/2016 05/15/2017 1 1 Encounter Details Date Type Department Care Team (Latest Contact Info) Description 07/26/2015 2:44 PM EST - 07/26/2015 11:59 PM EST Hospital Encounter Ultrasound [place] [phone] Ferdinand Michael Jr., MD [facility] [place] [address] Ultrasound for screening for growth restriction Discharge Disposition: Home Social History Tobacco Use [...] Refills Start Date End Date hydrocortisone (WESTCORT) 0.2 % Cream Apply topically as needed. 07/25/2015 multivitamin (THERAGRAN) tablet Take 1 tablet by mouth daily. montelukast (SINGULAIR) 10 mg tablet Take 10 mg by mouth daily as needed. 12/07/2010 albuterol (ACCUNEB) 0.63 mg/3 mL nebulizer solution 08/24/2010 NIFEdipine (ADALAT CC) 30 mg Tablet Sustained Release Take 30 mg by mouth daily. 08/06/2018 estradiol (GLENYS) 0.1 mg/[address] 1 patch onto the skin twice a week. 24 patch 3 07/07/2015 07/27/2016 Fluocinolone Acetonide Oil 0.01 % Drops 0 06/21/2015 08/29/2015 polyethylene glycol (MIRALAX) 17 gram/dose Powder 03/28/2015 08/29/2015 progesterone (PROMETRIUM) 200 mg Capsule Take 1 [...] ERGOCALCIFEROL, VITAMIN D2, (VITAMIN D ORAL) 08/24/2010 04/10/2016 KETOCONAZOLE (NIZORAL TOP) Apply topically. 08/24/2010 02/12/2022 documented as of this encounter Plan of Treatment Upcoming Encounters Date Type Department Care Team (Late st Contact Info) Description 08/07/2024 3:30 PM EST Office [place] [address] Tarik Henry MD [facility] [place] [address] 09/22/2024 7:00 AM EST [place] [address] Ferdinand Michael Jr., MD [facility] [place] [address] 09/22/2024 8:00 AM EST [place] [address] Ferdinand Michael Jr., MD [facility] [place] [address] documented as of this encounter Procedures Procedure Name Priority Date/Time Associated Diagnosis Comments US RETROPERITONEAL COMPLETE Routine 07/26/2015 3:16 PM EST Ultrasound for screening for growth restriction documented in this encounter Results * US [...] 03:41 pm) Patient Info ID #: ? [id number] ?: ??[birth year] (49 yrs) Name: ? JESSICA ALBRIGHT ?Visit Date: 07/26/2015 03:12 pm Performed By Performed By: ? Maria Teresa Escobar RDMS Attending: ?Weston Martin MD. Referred By: ?FERDINAND MICHAEL MD Service(s) Provided ??URETRO - Retroperitoneal Complete - [id number] ? [id number] Indications ??kidney stones Comparison Ultrasound: 02/23/14 ------- [...] 07/26/2015 03:41 pm) Patient Info ID #: [id number] : [birth year] (49 yrs) Name: JESSICA ALBRIGHT Visit Date: 07/26/2015 03:12 pm Performed By Performed By: Maria Teresa Escobar RDMS Attending: Weston Martin MD Referred By: FERDINAND MICHAEL MD Service(s) Provided URETRO - Retroperitoneal Complete - [id number] Indications kidney stones Comparison Ultrasound: 02/23/14 ------- [...] Diagnoses Diagnosis Ultrasound for screening for growth restriction screening for growth retardation using ultrasonics documented in this encounter Care Teams Medical Administrative Specialist Relationship Specialty Start Date End Date Monica Garcia MD [address] [place] [address] PCP - General 01/06/13 02/27/17 documented as of this encounter
--- OUTSIDE RECORDS SUMMARY | 2024-07-20 18:31 | XMS_ITS | Encounter Summary ---
Author Organization [facility] Address [facility] [place] [address] Care Team Providers Care Pulp Beater Name Role Phone Monica Garcia MD Primary Care Provider [phone] Reason for Visit * Reason Comments Gynecologic Exam last pap 03/06/12 inf ection or repair Encounter Details Date Type Department Care Team (Latest Contact Info) Description 04/24/2013 9:30 AM EDT Office Visit Obstetrics [place] [address] Ramses Birch MD [facility] DR OBSTETRICS & [place] [address] Encounter for annual health examination (Primary Dx); Well woman exam with routine gynecological exam Discharge Disposition: Home Social History Tobacco Use [...] documented in this encounter Progress Notes * Bernard Basurto MD - 04/28/2013 11:15 AM EDT The case was discussed with Dr. Birch at the time of the visit or immediately after the visit. Theassessment and plan were formulated in discussion with me and I agree with them as documented. * Ramses Birch - 04/24/2013 9:37 AM EDT Annual Visit Stacy Albright [id number] 04/24/2013 MONICA GARCIA MD Reason for Visit: Stacy is a 47 y.o. perimenopausal female who presents for her annual GYNexam. She also presents with the following complaints/concerns: [...] had concerns over an area of her labialoosing volume, this has not been occurring since [...] Menstrual cycle every 21-28 days lasting 5 days. medium flow. No cramps. No intermenstrual bleeding since [...] daily given her history of kidney stones. Immunizations: Immunization status: stated current. Pneumovax yes. Flu shot gets annually, planningon it this year. 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 Created by [email or web address][email or web address]) Procedure Date: 01/16/2008 ??? Lithotripsy Family History [...] (vitamin d2), ketoconazole, gabapentin, cetirizine, mometasone furoate, fluticasone-sa lmeterol, montelukast, and albuterol. Allergies Allergen Reactions ??? [...] with a normal pubic hair distribution. The Bartholin's and [place]'s glands are unremarkable. The urethra is without masses. The urethral meatus is withoutprolapse. The vagina is pink and rugated. There are no vaginal or cervical lesions. Bimanual exam reveals midline, anteverted, mobile, uterus without nodularity or tenderness. No adnexal fullness or tenderness. The rectovaginal exam reveals no masses or rectovaginal septum nodularity or thickening.The anal sphincter tone is normal and there are no rectal masses. The stool is grossly heme negative. Assessment: Stacy is a 47 y.o. year old pre-menopausal female with osteoporosis managed byEndocrine, on Climeara patch, who presents for her [...] 3:30 PM EST Office [place] [address] Tarik Henry MD [facility] [place] [address] 09/22/2024 7:00 AM EST [place] [address] Luis Michael Jr., MD [facility] [place] [address] 09/22/2024 8:00 AM EST [place] [address] Luis Michael Jr., MD [facility] [place] [address] documented as of this encounter Visit Diagnoses Diagnosis Encounter for annual health examination- Primary Routine general medical examination at a health care facility Well woman exam with routine gynecological exam Routine gynecological examination documented in this encounter Care Teams Pulp Beater Relationship Specialty Start Date End Date Monica Garcia MD [address] [place] [address] PCP - General 01/06/13 02/27/17 documented as of this encounter
--- OUTSIDE RECORDS SUMMARY | 2024-07-20 18:31 | XMS_ITS | Encounter Summary ---
Author Organization [facility] [place] [address] Care Team Providers Care Hiv Counselor Name Role Phone Monica Garcia MD Primary Care Provider [phone] Encounter Details Date Type Department Care Team (Late st Contact Info) Description 12/30/2015 [place] [phone] Luis Michael Jr., MD [facility] [place] [address] Social History Tobacco Use Types Packs/Day Years [...] encounter Miscellaneous Notes * Telephone Encounter - Lisbet Monterroso - 12/30/2015 2:56 PM EDT Pt called to state she cancelled the December appointment. She feels she is doing better. documented in this encounter Plan of Treatment Upcoming Encounters Date Type Department Care Team (Late st Contact Info) Description 08/07/2024 3:30 PM EST Office Visit Orthopaedics at [place] [phone] Tarik Henry MD [facility] [place] [address] 09/22/2024 7:00 AM EST Appointment Ultrasound at [address] Luis Michael Jr., MD [facility] [place] [address] 09/22/2024 8:00 AM EST [place] [address] Luis Michael Jr., MD [facility] [place] [address] documented as of this encounter Visit Diagnoses Not on filedocumented in this encounter Care Teams Hiv Counselor Relationship Specialty Start Date End Date Monica Garcia MD [address] [place] [address] PCP - General 01/06/13 02/27/17 documented as of this encounter
--- OUTSIDE RECORDS SUMMARY | 2024-07-20 18:31 | XMS_ITS | Encounter Summary ---
Author Organization [facility] [place] [address] Care Team Providers Care Service Center Assistant Name Role Phone Monica Garcia MD Primary Care Provider [phone] Reason for Visit * Reason Comments Annual Exam Encounter Details Date Type Department Care Team (Latest Contact Info) Description 06/28/2015 4:05 PM EST Office Visit Obstetrics [place] [address] Ida Ron, SACHA [facility] OBSTETRICS & [place] [address] Encounter for routine gynecological examination; Perimenopause Social History Tobacco Use Types Packs/Day [...] this encounter Progress Notes * Ida Ron, ASSOCIATE - 06/28/2015 4:34 PM EST Reason for visit: 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 She isalso using Prometrium 200 mg starting on the [...] a day. She could not recall exactly whenthe cycle before that was. No clots, she [...] Laterality Date ??? Created by leigh ann Morgan(MSUROL) Procedure Date: 01/16/2008 ??? Lithotripsy ??? Knee surgery 03/01/14 Right knee; patella surgery BANDER History: Pt is a 49 year old G 4 P 3 female. Last pap 02/2012 negative; hx abnormal pap at age 15 that required cryotherapy. Hx PID at age 15; no other hx of STD's/STI's. Last mammogram today. DEXA scan done in 01/2013 with lumbar total T-score -0.7; left hip total T-score -1.8, however femoral neck with noted T- score of -2.5 indicative of 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 She saw Dr Hall this past summer. Pt reports taking calcium and Vitamin D [...] a new home in their town of [place], [place]. 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 Eats relatively healthy with fruits, vegetables, yogurt, [...] by mouth daily. The - 14 of eachmonth 42 capsule 3 ??? cetirizine (ZYRTEC) 10 [...] 3:30 PM EST Office Visit Orthopaedics at [place] [phone] Tarik Henry MD [facility] [place] [address] 09/22/2024 7:00 AM EST Appointment Ultrasound at [place] [phone] Luis Michael Jr., MD [facility] [place] [address] 09/22/2024 8:00 AM EST Office Visit Urology at [place] [phone] Luis Michael Jr., MD [facility] [place] [address] documented as of this encounter Procedures Procedure Name Priority Date/Time Associated Diagnosis Comments BANDER CYTOLOGY INTERPRETATION Routine 06/28/2015 5:02 PM EST BANDER CYTOLOGY FINAL REPORT Routine 06/28/2015 5:02 PM EST CYTOPATHOLOGY GYNECOLOGICAL Routine 06/28/2015 5:02 PM EST Encounter for routine gynecological examination documented in this encounter Results * BANDER Cytology Interpretation (06/28/2015 5:02 PM EST) Contract Technician Cytology Interpretation Unsatisfactory CERNER MILLENNIUM Comment:Contract Technician Cytology Final R eport Contract Technician Cytology Comment Present CERNER MILLENNIUM Endocervical Component Unsatisfactory CERNER MILLENNIUM AP Specimen 06/28/2015 5:02 PM EST 06/28/2015 5:32 PM EST Rosey Crabtree MD PATHOLOGY/CYTOLOGY O RDERABLES KYRA QUAN * Contract Technician Cytology Final Report (06/28/2015 5:02 PM EST) Contract Technician Cytology Final Report The signing pathologist has (i) examined the relevant preparation(s) for the specimen(s) and (ii) rendered or confirmed the diagnosis(es). Accession Number: [id number] ?Location: 5L . ? Contract Technician Final DIAGNOSIS Unsatisfactory Specimen submitted is unsatisfactory for evaluation. ??See comment. 07/05/15 ?? Screened by: ??LMY ??SLA 07/05/15 ?? Verified by: ??AVI Henson(ASCP), Suzie Braswell - Web Interface Developer DISCUSSION Specimen processed and examined microscopically but unsatisfactory for evaluation of epithelial abnormality due to insufficient squamous cellularity. ??Blood present. STATEMENT OF ADEQUACY Specimen submitted is unsatisfactory due to insufficient squamous component. CLINICAL INFORMATION HPV Option: ?Reflex HPV Preparation: ? Liquid based Pap Specimen Source: ? Cervical/Endocervic al LMP: ? 11/2/15 Hormones?: ? Yes Hysterectomy?: ? No ?: ? No ?: ? No I.U.D.?: ? No Pelvic Radiation: ?No Prior BANDER Therapy?: ?Other (comment) Hist Abnl Pap/Biopsy?: ?? Yes, history of previous abnormal Pap Hist of HPV Vaccine?: ?No Hist of Smoking?: ?No Hist of HAZEL exposure?: ?? No ICD Diagnosis: ? Z12.4 Encounter for screening for malignant neoplasm of cervix Clinical Data, Significant Therapy and Clinical Impression: ?_ This Pap Test has been evaluated with the assistance of the Traffic.comPrep Pap Test Imaging System. Note: The Pap test is a screening test for cervical cancer with an inherent false-negative rate dependent upon several variables. ??For further information please contact the [facility] Laboratory. Reference: ??Devika CS. ??Volleyball Referee of Pap Smear Results. ??In: ??Sukumar BS, Roni HH, ed. ??The Pap Smear. ??[place]: ??Jonah, 2002: ??71-77. KYRA QUAN 06/28/2015 5:02 PM EST Rosey Crabtree MD PATHOLOGY/CYTOLOGY O RDERABLES KYRA QUAN * Cytopathology Gynecological (06/28/2015 5:02 PM EST) AP Specimen 06/28/2015 5:02 PM EST 06/28/2015 5:02 PM EST Narrative KYRA QUAN - 06/28/2015 5:02 PM EST Specimen requisition ordered. ??Separate Pathology report to follow Rosey Crabtree MD PATHOLOGY/CYTOLOGY O RDERABLES KYRA QUAN documented in this encounter Visit Diagnoses Diagnosis Encounter for routine gynecological examination Routine gynecological examination Perimenopause Symptomatic menopausal or female climacteric states documented in this encounter Care Teams Service Center Assistant Relationship Specialty Start Date End Date Monica Garcia MD [address] [place] [address] PCP - General 01/06/13 02/27/17 documented as of this encounter
--- OUTSIDE RECORDS SUMMARY | 2024-07-20 18:31 | XMS_ITS | Encounter Summary ---
Author Organization [facility] [place] [address] Care Team Providers Care Courtesy Van Driver Name Role Phone Monica Garcia MD Primary Care Provider [phone] Reason for Visit * Reason Comments Follow-up Encounter Details Date Type Department Care Team (Late st Contact Info) Description 01/24/2015 4:20 PM EDT Follow-Up Obstetrics [place] [address] Ida Ron, GAUGE INSPECTOR [facility] OBSTETRICS & [place] [address] Menopausal hot flushes Discharge Disposition: Home Social History Tobacco Use [...] kg (147 lb 3.2 oz) 01/24/2015 4:23 P M EDT Height - - Body Mass Index 22.38 06/09/2014 3:51 PM EDT documented in this encounter Progress Notes * Ida Ron APRN - 01/24/2015 4:59 PM EDT Reason for visit: Hot flushes HPI: Pt was seen in 05/2014 for annual exam. She reported irregular periods which are now regulatedwith the cycling of estrogen and prometrium. She was having hot flushes that were not controlled onClimaraPro. We then switched her to Combipatch which also was not taking hot flushes away. She thenwas switched to the Estradiol transdermal patch 0.1 mg. She is on the Prometrium 200 mg monthly which regulate her periods. She just finished the 14 days of Prometrium, Saturday, January 21. She started bleeding January 14. She has not had an EMB or US/SHG. She takes the Progesterone the of the month to the . Should get mense . She reports the Prometrium makes the hot flushes worse and would like to know if there is anything else she can do. 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 This is when her hot flushes worsened. O: No exam A: Hot flushes R/T perimenopause vs side effect of medication AUB P: Since no studies to evaluate any pathology was performed to evaluate the endometrial cavity, will order US/SHG. Will try and schedule first or second week of February. She will contact her PCP to see if she could try another med for Raynauds. She will have CBC and TSH drawn today to check levels After pt left, I was able to review more of her historic notes. She had irregular bleeding when shewas on continuous OCP in 2011. An US [...] 3:30 PM EST Office [place] [phone] Tarik Henry MD [facility] [place] [address] 09/22/2024 7:00 AM EST Appointment Ultrasound at [place] [phone] Luis Michael Jr., MD [facility] [place] [address] 09/22/2024 8:00 AM EST Office Visit Urology at [place] [phone] Luis Michael Jr., MD [facility] [place] [address] documented as of this encounter Procedures Procedure Name Priority Date/Time Associated Diagnosis Comments HEMOGRAM Routine 01/24/2015 5:39 PM EDT Menopausal hot flushes DIFFERENTIAL, AUTOMATED Routine 01/24/2015 5:39 PM EDT Menopausal hot flushes CBC (WITH DIFF) Routine 01/24/2015 5:39 PM EDT Menopausal hot flushes TSH Routine 01/24/2015 5:39 PM EDT Menopausal hot flushes documented in this encounter Results * Differential, Automated (01/24/2015 5:39 PM EDT) Neutrophil % 62.0 % CERNER MILLENNIUM Neutrophil Absolute 3.51 1.50 - 6.30 x10(3)/mcL CERNER MILLENNIUM Lymph % 27.2 % CERNER MILLENNIUM Lymphocytes Abs 1.5 1.0 - 3.6 x10(3)/mcL CERNER MILLENNIUM Monocyte % 8.8 % CERNER MILLENNIUM Monocyte Abs 0.5 0.2 - 1.0 x10(3)/mcL CERNER MILLENNIUM Eos % 1.1 % CERNER MILLENNIUM Eosinophils Abs 0.1 0.0 - 0.5 x10(3)/mcL CERNER MILLENNIUM Basophil % 0.7 % CERNER MILLENNIUM Baso Absolute 0.0 0.0 - 0.2 x10(3)/mcL CERNER MILLENNIUM Immature Gran % 0.20 % CERN ER MILLENNIUM Comment: Immature granulocytes(IG's)percentage and absolute count will include metamyelocytes, myelocytes, and promyelocytes. Blood smears from CBCs yielding IG's will be scanned manually for concordance. If this scan disagrees with the automated IG or if promyelocytes are noted, a manual differential will be performed. Immature Gran Absolute 0.01 0.00 - 0.05 x10(3)/mcL CERNER MILLENNIUM Blood specimen (specimen) 01/24/2015 5:39 PM EDT 01/24/2015 5:43 PM EDT Narrative Resulting Agency Comment Spec In Lab Aylin Masters MD HEMATOLOGY ORDERABLE S CERNER MILLENNIUM * (ABNORMAL) Hemogram (01/24/2015 5:39 PM EDT) White Blood Cell 5.7 4.0 - 10.0 x10(3)/mc L CERNER MILLENNIUM Red Blood Cell 4.56 3.93 - 5.22 x10(6)/mc L CERNER MILLENNIUM Hemoglobin 13.9 11.2 - 15.7 gm/dL CERNER MILLENNIUM Hematocrit 41.8 34.0 - 45.0 % CERNER MILLENNIUM Mean Cell Volume 91.7 79.0 - 94.0 fL CERNER MILLENNIUM Mean Cell Hemoglobin 30.5 26.6 - 32.2 pg CERNER MILLENNIUM Mean Cell Hemoglobin Concentration 33.3 32.0 - 36.5 gm/dL CERNER MILLENNIUM Platelet 197 145 - 370 x10(3)/mc L CERNER MILLENNIUM RDW Standard Deviation 46.4(H) 35.0 - 46.0 fL CERNER MILLENNIUM RDW coefficient of variation 13.8 10.9 - 14.4 % CERNER MILLENNIUM Mean Platelet Volume 10.0 9.0 - 12.0 fL CERNER MILLENNIUM Blood specimen (specimen) 01/24/2015 5:39 PM EDT 01/24/2015 5:43 PM EDT Narrative Resulting Agency Comment Spec In Lab Aylin Masters MD HEMATOLOGY ORDERABLE S Performing Organization Address [facility] Co de Phone Number KYRA QUAN * TSH (01/24/2015 5:39 PM EDT) Thyroid Stimulating Hormone 2.76 0.27 - 4.20 mcIU/mL CERNER MILLENNIUM Blood specimen (specimen) 01/24/2015 5:39 PM EDT 01/24/2015 5:43 PM EDT Narrative Resulting Agency Comment Spec In Lab Aylin Masters MD CHEMISTRY ORDERABLES Performing Organization Address [facility] Co de Phone Number KYRA QUAN documented in this encounter Visit Diagnoses Diagnosis Menopausal hot flushes Symptomatic menopausal or female climacteric states documented in this encounter Care Teams Courtesy Van Driver Relationship Specialty Start Date End Date Monica Garcia MD [address] [place] [address] PCP - General 01/06/13 02/27/17 documented as of this encounter
--- OUTSIDE RECORDS SUMMARY | 2024-07-20 18:31 | XMS_ITS | Encounter Summary ---
[place] [address] Care Team Providers Care Passenger Relations Representative Name Role Phone Monica Garcia MD Primary Care Provider [phone] Reason for Visit * Reason Onset Date Comments Questions 12/07/2014 Encounter Details Date Type Department Care Team (Late st Contact Info) Description 12/07/2014 Telephone Obstetrics [place] [phone] Connie Bolton, RN Questions Social History Tobacco Use Types Packs/Day Years [...] encounter Miscellaneous Notes * Telephone Encounter - Connie Bolton RN - 12/07/2014 10:11 AM EDT Caller: Connie Bolton RN Learning Needs Assessment Reviewed: Yes Subjective Patient presents with: Questions Objective/Assessment Patient had sent a message for Mary Ron APRN regarding changing her medication.She is currently using Estradiol (Lia) 0.1mg/24hour semiweekly. [...] leave until December. She is asking that I check with another provider to see if there is another medication that would work better than the Lia patch. documented in this encounter Plan of Treatment Upcoming Encounters Date Type Department Care Team (Late st Contact Info) Description 08/07/2024 3:30 PM EST Office [place] [address] Tarik Henry MD [facility] [place] [address] 09/22/2024 7:00 AM EST Appointment Ultrasound at [address] Luis Michael Jr., MD [facility] [address] 09/22/2024 8:00 AM EST Office Visit Urology at [place] [phone] Luis Michael Jr., MD [facility] [place] [address] documented as of this encounter Visit Diagnoses Not on filedocumented in this encounter Care Teams Passenger Relations Representative Relationship Specialty Start Date End Date Monica Garcia MD [address] [place] [address] PCP - General 01/06/13 02/27/17 documented as of this encounter
--- OUTSIDE RECORDS SUMMARY | 2024-07-20 18:31 | XMS_ITS | Encounter Summary ---
Author Organization [facility] [place] [address] Care Team Providers Care Warehouse Associate Name Role Phone Monica Garcia MD Primary Care Provider Encounter Details Date Type Department Care Team (Late st Contact Info) Description 12/29/2014 Orders [place] [phone] Cuate Hall MD [facility] [place] [address] Osteoporosis Social History Tobacco Use Types Packs/Day [...] 3:30 PM EST Office [place] [phone] Tarik Henry MD [facility] [place] [address] 09/22/2024 7:00 AM EST [place] [address] Luis Mcihael Jr., MD [facility] [place] [address] 09/22/2024 8:00 AM EST [place] [address] Luis Michael Jr., MD [facility] [place] [address] documented as of this encounter Visit Diagnoses Diagnosis Osteoporosis Osteoporosis, unspecified documented in this encounter Care Teams Warehouse Associate Relationship Specialty Start Date End Date Monica Garcia MD [address] [place] [address] PCP - General 01/06/13 02/27/17 documented as of this encounter
--- OUTSIDE RECORDS SUMMARY | 2024-07-20 18:31 | XMS_ITS | Encounter Summary ---
[place] [address] Care Team Providers Care Public Health Service Officer Name Role Phone Monica Garcia MD Primary Care Provider [phone] Encounter Details Date Type Department Care Team (Late st Contact Info) Description 02/23/2014 3:30 PM EDT - 02/23/2014 11:59 PM EDT Hospital Encounter [place] [address] Kidney stones Social History Tobacco Use Types Packs/Day Years [...] (ACCUNEB) 0.63 mg/3 mL nebulizer solution 08/24/2010 estradiol-levonorgestrel (CLIMARA PRO) 0.045-0.015 mg/[address] 1 patch onto the skin once a week. 4 patch 2 01/06/2014 04/23/2014 amitriptyline (ELAVIL) 10 mg tablet Take 10 [...] daily as needed (winter time). 06/27/2017 Evening [place] [employer] 500 mg Cap 08/24/2010 01/24/2015 FOLIC [...] 3:30 PM EST Office [place] [phone] Tarik Henry MD [facility] [place] [address] 09/22/2024 7:00 AM EST Appointment [place] [phone] Ferdinand Michael Jr., MD [facility] [address] 09/22/2024 8:00 AM EST Office [place] [phone] Ferdinand Michael Jr., MD [facility] [place] [address] documented as of this encounter Procedures Procedure Name Priority Date/Time Associated Diagnosis Comments US RETROPERITONEAL COMPLETE Routine 02/23/2014 4:21 PM EDT Kidney stones documented in this encounter Results * US retroperitoneal complete (02/23/2014 4:21 PM EDT) Anatomical Region Laterality Modality Abdomen Ultrasound 02/23/2014 4:21 PM EDT Narrative 02/23/2014 5:21 PM EDT ? Renal ?(Signed Final 02/23/2014 05:20 pm) Patient Info ID: ?[id number] ?: ??[birth year] (48 yrs) Name: ?JESSICA GTZ ?Visit Date: 02/23/2014 04:19 pm Performed By Performed By: ?Mariann Leonard RDMS Associate: ? Bobby Barboza MD Attending: ? Genie Carrasco MD Referred By: ? FERDINAND MICHAEL MD Service(s) Provided URETRO - Retroperitoneal Complete - [id number] ? [id number] Indications Hx of kidney stones Comparison Renal/bladder [...] Final 02/23/2014 05:20 pm) Patient Info ID: [id number] : [birth year] (48 yrs) Name: JESSICA GTZ Visit Date: 02/23/2014 04:19 pm Performed By Performed By: Mariann Leonard RDMS Associate: Jabari GILL, Bobby Alvarez Attending: Luna GILL, Genie Dumont Referred By: FERDINAND MICHAEL MD Service(s) Provided URETRO - Retroperitoneal Complete - [id number] Indications Hx of kidney stones Comparison Renal/bladder [...] Date Monica Garcia MD [address] [place] [address] PCP - General 01/06/13 02/27/17 documented as of this encounter
--- OUTSIDE RECORDS SUMMARY | 2024-07-20 18:31 | XMS_ITS | Encounter Summary ---
Author Organization [facility] [place] [address] Care Team Providers Care Integration Consultant Name Role Phone Monica Garcia MD Primary Care Provider [phone] Reason for Visit * Reason Comments Follow-up Encounter Details Date Type Department Care Team (Late st Contact Info) Description 07/26/2015 4:00 PM EST [place] [address] Luis Michael Jr., MD [facility] [place] [address] Nephrolithiasis Social History Tobacco Use Types Packs/Day [...] 36.6 ??C (97.9 ??F) 07/26/2015 3:53 PM ES T Respiratory Rate 20 07/26/2015 3:53 PM EST Oxygen Saturation 100% 07/26/2015 3:53 PM EST Inhaled Oxygen Concentration - - Weight 67.1 kg (148 lb) 07/26/2015 3:53 PM EST Height 172.7 cm (5' 8) 07/26/2015 3:53 PM EST Body Mass Index 22.5 07/26/2015 3:53 PM EST documented in this encounter Progress Notes * Luis Michael Jr., MD - 07/26/2015 4:34 PM EST HPI Ms. Stacy Albright returns for follow up regarding urolithiasis. She is s/p SWL in 2007 and more recent left ureterscopy in 07/2010. Although ultrasounds have suggested a 4-5 mm left lower polestone, CT confirmed no residual stone. In the 18 months since her last visit, she had been well until approximately 2 months ago (May 2015). She has noted dull left flank pain, 2-4/10 in severity, without radiation, hematuria, nausea,or emesis. She states it feels like her [...] is tenderness (scant LUQ tenderness). There is no rebound and no guarding. [...] from today. This reveals no evidenceof hydronephrosis, hydroureter or definite stones. Note made [...] will contact us. She will call or return sooner if new interval problems arise. documented in this encounter Plan of Treatment Upcoming Encounters Date Type Department Care Team (Late st Contact Info) Description 08/07/2024 3:30 PM EST Office Visit Orthopaedics at [place] [phone] Tarik Henry MD [facility] [place] [address] 09/22/2024 7:00 AM EST Appointment [place] [phone] Luis Michael Jr., MD [facility] [place] [address] 09/22/2024 8:00 AM EST [place] [phone] Luis Michael Jr., MD [facility] [place] [address] documented as of this encounter Visit Diagnoses Diagnosis Nephrolithiasis Calculus of kidney documented in this encounter Care Teams Integration Consultant Relationship Specialty Start Date End Date Monica Garcia MD [address] [place] [address] PCP - General 01/06/13 02/27/17 documented as of this encounter
--- OUTSIDE RECORDS SUMMARY | 2024-07-20 18:31 | XMS_ITS | Encounter Summary ---
Author Organization [facility] [place] [address] Care Team Providers Care Lockmaker Name Role Phone Monica Garcia MD Primary Care Provider [phone] Encounter Details Date Type Department Care Team (Late st Contact Info) Description 07/15/2014 Orders Only Obstetrics [place] [phone] Ida Ron APRN [facility] OBSTETRICS & [place] [address] Perimenopause Social History Tobacco Use Types Packs/Day [...] 3:30 PM EST Office [place] [phone] Tarik Henry MD [facility] [place] [address] 09/22/2024 7:00 AM EST [place] [address] Luis Michael Jr., MD [facility] [place] [address] 09/22/2024 8:00 AM EST [place] [address] Luis Michael Jr., MD [facility] [place] [address] documented as of this encounter Visit Diagnoses Diagnosis Perimenopause Symptomatic menopausal or female climacteric states documented in this encounter Care Teams Lockmaker Relationship Specialty Start Date End Date Monica Garcia MD [address] [place] [address] PCP - General 01/06/13 02/27/17 documented as of this encounter
--- OUTSIDE RECORDS SUMMARY | 2024-07-20 18:31 | XMS_ITS | Encounter Summary ---
Author Organization [facility] [place] [address] Care Team Providers Care Stringed Instrument Tuner Name Role Phone Monica Garcia MD Primary Care Provider [phone] Reason for Visit * Reason Onset Date Comments Medication Refill 04/23/2014 Encounter Details Date Type Department Care Team (Late st Contact Info) Description 04/23/2014 Refill Obstetrics [place] [address] Aundrea [place] RN Social History Tobacco Use Types Packs/Day [...] encounter Miscellaneous Notes * Telephone Encounter - Aundrea [place] RN - 04/23/2014 4:51 PM EDT TELEPHONE NOTE Caller: AUNDREA [place] RN Reason for call: To inform Pt of refill for Climara patch for 1 month. Plan/Instructions: This job specification writer contacted Pt and she has scheduled her annual appt for May. documented in this encounter Plan of Treatment Upcoming Encounters Date Type Department Care Team (Late st Contact Info) Description 08/07/2024 3:30 PM EST Office Visit Orthopaedics at [place] [phone] Tarik Henry MD [facility] [place] [address] 09/22/2024 7:00 AM EST Appointment Ultrasound at [place] [phone] Luis Michael Jr., MD [facility] [place] [address] 09/22/2024 8:00 AM EST Office Visit Urology at [place] [phone] Luis Michael Jr., MD [facility] [place] [address] documented as of this encounter Visit Diagnoses Not on filedocumented in this encounter Care Teams Stringed Instrument Tuner Relationship Specialty Start Date End Date Monica Garcia MD [address] [place] [address] PCP - General 01/06/13 02/27/17 documented as of this encounter
--- OUTSIDE RECORDS SUMMARY | 2024-07-20 18:31 | XMS_ITS | Encounter Summary ---
Author Organization [facility] [place] [address] Care Team Providers Care Beef Trimmer Name Role Phone Monica Garcia MD Primary Care Provider [phone] Reason for Visit * Reason Comments Annual Exam Encounter Details Date Type Department Care Team (Latest Contact Info) Description 06/09/2014 4:00 PM EDT Office Visit Obstetrics [place] [address] [facility] [place] [address] Hot flushes, perimenopausal (Primary Dx) Discharge Disposition: Home Social History Tobacco Use [...] this encounter Progress Notes * Ida Ron, HARDWARE TECHNICIAN - 06/10/2014 8:23 AM EDT Reason for visit: Annual internet architect exam ROS: GI: Denies any leakage of stool. : Denies any leakage of urine or urinary frequency, urgency, or burning. LADLE MECHANIC: Reported yeast infection 3 weeks ago with [...] generally getting 2-3 hours of sleep per night,with 5-6 hours of sleep on a good [...] Surgical History Procedure Date ??? Created by Zady [email or web address]) Procedure Date: 01/16/2008 ??? Lithotripsy ??? Knee surgery 03/01/14 Right knee; patella surgery LADLE MECHANIC History: Pt is a 48 year old G 4 P 3 female. LMP 06/05/14; menses occur every 28 days while on patch, bleeding requires a regular pad to be changed a couple times per day for the first 2 days, then managed with a panty liner, menses last 4-5 days, menses associated cramping pain 09/04. Surgical c ontraception as had a vasectomy. Last pap 02/2012 negative; hx abnormal pap at age 15 that required cryotherapy. Hx PID at age 15; no other hx of STD's/STI's. Last mammogram 03/2013 negative. DEXA scan done in 01/2013 with lumbar total T-score -0.7; left hip total T-score -1.8, however femoralneck with noted T-score of -2.5 indicative of 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 Pt reports taking calcium and Vitamin Dsupplements; followed by endocrine. No previous colonoscopy. Family [...] a new home in their town of [place], [place]. 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 Eats relatively healthy with fruits, vegetables, yogurt, [...] PRO) 0.045-0.015 mg/[address] 1patch onto the skin once a week. No refills without Heel Sander appt. 4 patch 0 ??? amitriptyline (ELAVIL) [...] mg by mouth every morning. ??? Evening [place] Oil 500 mg Cap ??? albuterol (ACCUNEB) [...] confirms, good tone, no hemorrhoids A: Unremarkable internet architect exam Hot flushes, worsening P: Since climara Pro does not come in a higher dose, will switch to Combipatch 0.05/0.14 semi weekly. If she is still experiencing vasomotor symptoms, will switch to higher dose. She is aware it is twice weekly. * Sulema Mcdowell E - 06/09/2014 4:34 PM EDT S: Annual LADLE MECHANIC Exam. ROS: GI: Denies any leakage of stool. : Denies any leakage of urine or urinary frequency, urgency, or burning. LADLE MECHANIC: Reported yeast infection 3 weeks ago with [...] generally getting 2-3 hours of sleep per night,with 5-6 hours of sleep on a good [...] History Procedure Date ??? Created by interface [email or web address](FusionOps) Procedure Date: 01/16/2008 ??? Lithotripsy ??? Knee [...] a new home in their town of [place], [place]. 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 Eats relatively healthy with fruits, vegetables, yogurt, [...] PRO) 0.045-0.015 mg/[address] 1patch onto the skin once a week. No refills without Heel Sander appt. 4 patch 0 ??? amitriptyline (ELAVIL) [...] mg by mouth every morning. ??? Evening [place] Oil 500 mg Cap ??? albuterol (ACCUNEB) [...] (138 lb) BMI 20.99 kg/m2 LMP 06/06/2014 LADLE MECHANIC History: Pt is a 48 year old G 4 P 3 female. LMP 06/05/14; menses occur every 28 days while on patch, bleeding requires a regular pad to be changed a couple times per day for the first 2 days, then managed with a panty liner, menses last 4-5 days, menses associated cramping pain 09/04. Surgical c ontraception as had a vasectomy. Last pap 02/2012 negative; hx abnormal pap at age 15 that required cryotherapy. Hx PID at age 15; no other hx of STD's/STI's. Last mammogram 03/2013 negative. DEXA scan done in 01/2013 with lumbar total T-score -0.7; left hip total T-score -1.8, however femoralneck with noted T-score of -2.5 indicative of 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 Pt reports taking calcium and Vitamin Dsupplements; followed by endocrine. No previous colonoscopy. O: Gen: Pleasant female, elevating right leg on chair with knee brace and WENCESLAO hose in place, singlecrutch in room. Thyroid: No masses or nodules palpated. Heart: Regular upon auscultation. Lungs: Clear bilaterally. Breasts: No nodules, masses, or lesions noted. No nipple discharge present. ABD: Soft, non-tender. No masses palpated. Climara Pro patch to LLQ. LADLE MECHANIC Exam: External Genitalia: Calera, no lesions visualized. Urethral Meatus: No masses or lesions. Vagina: Calera, no lesions noted however view of canal somewhat obstructed due to current bleeding from menses. Cervix: Smooth, pink, no CMT noted. Cervix visualized; no lesions noted. Uterus: Anteverted/Anteflexed, no masses palpated. Adnexa: Without masses. A: Pt is a 48 year old perimenopausal woman who does not routinely see her PCP and is here for her Annual Heel Sander Exam; exam findings benign, however patient would [...] - Pt to start decreasing dosing of [place] oil at night. - Climara patch d/c, [...] noted above. Patient seen in conjunction with [facility] STUDENT SUCCESS ADVISOR Student, Sulema Mcdowell. documented in this encounter Plan of Treatment Upcoming Encounters Date Type Department Care Team (Late st Contact Info) Description 08/07/2024 3:30 PM EST Office [place] [address] Tarik Henry MD [facility] [place] [address] 09/22/2024 7:00 AM EST [place] [address] Luis Michael Jr., MD [facility] [place] [address] 09/22/2024 8:00 AM EST [place] [address] Luis Michael Jr., MD [facility] [place] [address] documented as of this encounter Visit Diagnoses Diagnosis Hot flushes, perimenopausal- Primary Symptomatic menopausal or female climacteric states documented in this encounter Care Teams Beef Trimmer Relationship Specialty Start Date End Date Monica Garcia MD [address] [place] [address] PCP - General 01/06/13 02/27/17 documented as of this encounter
--- OUTSIDE RECORDS SUMMARY | 2024-07-20 18:31 | XMS_ITS | Encounter Summary ---
Author Organization [facility] [place] [address] Care Team Providers Care Comic Book Writer Name Role Phone David Lockhart Primary Care Provider [phone] Reason for Visit * Reason Comments Medication Refill Encounter Details Date Type Department Care Team (Late st Contact Info) Description 04/11/2014 Refill Obstetrics [place] [address] Ramses Birch MD [facility] DR OBSTETRICS [place] [address] Social History Tobacco Use Types Packs/Day Years [...] 3:30 PM EST Office [place] [address] Tarik Henry MD [facility] [place] [address] 09/22/2024 7:00 AM EST [place] [address] Luis Michael Jr., MD [facility] [place] [address] 09/22/2024 8:00 AM EST [place] [address] Luis Michael Jr., MD [facility] [place] [address] documented as of this encounter Visit Diagnoses Not on filedocumented in this encounter Care Teams Comic Book Writer Relationship Specialty Start Date End Date David Lockhart PA [address] [place] [address] PCP - General Family Medicine 02/11/24 documented as of this encounter
--- OUTSIDE RECORDS SUMMARY | 2024-07-20 18:31 | XMS_ITS | Encounter Summary ---
Author Organization [facility] [place] [address] Care Team Providers Care Technology Project Manager Name Role Phone Monica Garcia MD Primary Care Provider [phone] Encounter Details Date Type Department Care Team (Late st Contact Info) Description 08/22/2015 Telephone Obstetrics [place] [address] Ida Ron APRN [facility] OBSTETRICS & [place] [address] Social History Tobacco Use Types Packs/Day Years [...] encounter Miscellaneous Notes * Telephone Encounter - Ida Ron APRN - 08/22/2015 2:31 PM EST Pt needed a refill on her Prometrium but she con't to bleed every 2 weeks. I was trying to cycle her on the Prometrium but she is bleeding during it. For now I will d/c the Prometrium and obtain an endometrial bx. Appointment to be made. documented in this encounter Plan of Treatment Upcoming Encounters Date Type Department Care Team (Late st Contact Info) Description 08/07/2024 3:30 PM EST Office Visit Orthopaedics at [place] [phone] Tarik Henry MD [facility] [place] [address] 09/22/2024 7:00 AM EST Appointment Ultrasound at [place] [phone] Luis Michael Jr., MD [facility] [place] [address] 09/22/2024 8:00 AM EST Office Visit Urology at [place] [phone] Luis Michael Jr., MD [facility] [place] [address] documented as of this encounter Visit Diagnoses Not on filedocumented in this encounter Care Teams Technology Project Manager Relationship Specialty Start Date End Date Monica Garcia MD [address] [place] [address] PCP - General 01/06/13 02/27/17 documented as of this encounter
--- OUTSIDE RECORDS SUMMARY | 2024-07-20 18:31 | XMS_ITS | Encounter Summary ---
Author Organization [facility] [place] [address] Care Team Providers Care Exposure Machine Operator Name Role Phone Monica Garcia MD Primary Care Provider [phone] Encounter Details Date Type Department Care Team (Late st Contact Info) Description 01/19/2015 Notes Only Obstetrics [place] [address] Toyin Aceves RN Social History Tobacco Use Types Packs/Day [...] as of this encounter Progress Notes * Toyin Aceves LPN - 01/20/2015 12:39 PM EDT PA for Karen torres has been approved starting on 01/19/15 and will on 01/18/18. Approval letter has been sent to medical records, patient and patient's pharmacy have been notified. * Toyin Aceves LPN - 01/19/2015 10:28 AM EDT PA for Karen torres has been faxed to [facility]. Approval is Pending. documented in this encounter Plan of Treatment Upcoming Encounters Date Type Department Care Team (Late st Contact Info) Description 08/07/2024 3:30 PM EST Office [place] [address] Tarik Henry MD [facility] [place] [address] 09/22/2024 7:00 AM EST Appoint[place] [address] Luis Mihcael Jr., MD [facility] [place] [address] 09/22/2024 8:00 AM EST Office [place] [address] Luis Michael Jr., MD [facility] [place] [address] documented as of this encounter Visit Diagnoses Not on filedocumented in this encounter Care Teams Exposure Machine Operator Relationship Specialty Start Date End Date Monica Garcia MD [address] [place] [address] PCP - General 01/06/13 02/27/17 documented as of this encounter
--- OUTSIDE RECORDS SUMMARY | 2024-07-20 18:31 | XMS_ITS | Encounter Summary ---
Author Organization [facility] [place] [address] Care Team Providers Care Puller Through Name Role Phone Monica Garcia MD Primary Care Provider [phone] Encounter Details Date Type Department Care Team (Late st Contact Info) Description 12/13/2014 Orders Only Obstetrics [place] [phone] Sarah Jose CNM [facility] DR OBSTETRICS [place] [address] Hot flashes (Primary Dx) Social History Tobacco Use Types [...] 3:30 PM EST Office [place] [address] Tarik Henry MD [facility] [place] [address] 09/22/2024 7:00 AM EST [place] [address] Luis Michael Jr., MD [facility] [place] [address] 09/22/2024 8:00 AM EST [place] [address] Luis Michael Jr., MD [facility] [place] [address] documented as of this encounter Visit Diagnoses Diagnosis Hot flashes- Primary Symptomatic menopausal or female climacteric states documented in this encounter Care Teams Puller Through Relationship Specialty Start Date End Date Monica Garcia MD [address] [place] [address] PCP - General 01/06/13 02/27/17 documented as of this encounter
--- OUTSIDE RECORDS SUMMARY | 2024-07-20 18:31 | XMS_ITS | Encounter Summary ---
Author Organization [facility] [place] [address] Care Team Providers Care Package Worker Name Role Phone Janet Davey SACHA Primary Care Provider [phone] Reason for Visit * Reason Comments Medication Refill Encounter Details Date Type Department Care Team (Late st Contact Info) Description 08/06/2015 Refill Obstetrics [place] [address] Ida Ron APRN [facility] DR OBSTETRICS [place] [address] Social History Tobacco Use Types Packs/Day Years [...] 3:30 PM EST [place] [phone] Tarik Henry MD [facility] [place] [address] 09/22/2024 7:00 AM [place] [address] Luis Michael Jr., MD [facility] [place] [address] 09/22/2024 8:00 AM EST [place] [address] Luis Michael Jr., MD [facility] [place] [address] documented as of this encounter Visit Diagnoses Not on filedocumented in this encounter Care Teams Package Worker Relationship Specialty Start Date End Date Janet Davey APRN PCP - General Family Medicine 07/13/20 02/10/24 documented as of this encounter
--- OUTSIDE RECORDS SUMMARY | 2024-07-20 18:31 | XMS_ITS | Encounter Summary ---
[place] [address] Care Team Providers Care Hat Marker Name Role Phone Monica Garcia MD Primary Care Provider [phone] Reason for Visit * Reason Onset Date Comments Medication Refill 07/07/2015 Encounter Details Date Type Department Care Team (Late st Contact Info) Description 07/07/2015 Telephone Obstetrics [place] [address] Connie Bolton, account liaison Refill Social History Tobacco Use Types Packs/Day Years [...] authorized ordering the Vivelle Dot 0.1mg/24 hour patch to be placed two times a week. [facility]. Patient called and notified of prescription. * Telephone Encounter - Connie Bolton RN - 07/07/2015 4:29 PM EST Caller: Patient Learning Needs Assessment Reviewed: Yes Subjective Patient presents with: Medication Refill Objective/Assessment Patient is calling with questions regarding prescription for Estradiol 0.1 mg/24 hour patch which she uses twice weekly. She has been using the Vivelle Dot 0.1 mg /24 hour, whichshe prefers. She is asking to have the [...] 3:30 PM EST Office Visit Orthopaedics at [place] [phone] Tarik Henry MD [facility] [place] [address] 09/22/2024 7:00 AM EST Appointment Ultrasound at [place] [phone] Luis Michael Jr., MD [facility] [place] [address] 09/22/2024 8:00 AM EST Office [place] [phone] Luis Michael Jr., MD [facility] [place] [place] [address] documented as of this encounter Visit Diagnoses Not on filedocumented in this encounter Care Teams Hat Marker Relationship Specialty Start Date End Date Monica Garcia MD [address] [place] [address] PCP - General 01/06/13 02/27/17 documented as of this encounter
--- OUTSIDE RECORDS SUMMARY | 2024-07-20 18:31 | XMS_ITS | Encounter Summary ---
Author Organization [facility] [place] [address] Care Team Providers Care Professor Of Apologetics Name Role Phone Monica Garcia MD Primary Care Provider Encounter Details Date Type Department Care Team (Late st Contact Info) Description 12/07/2014 Orders Only Obstetrics [place] [address] Sarah Jose CNM [facility] DR OBSTETRICS & [place] [address] Social History Tobacco Use Types Packs/Day Years [...] 3:30 PM EST Office [place] [address] Tarik Henry MD [facility] [place]EDIC [place] [address] 09/22/2024 7:00 AM EST Appointment [place] [address] Luis Michael Jr., MD [facility] [place] [address] 09/22/2024 8:00 AM EST Office [place] [address] Luis Michael Jr., MD [facility] [place] [address] documented as of this encounter Visit Diagnoses Not on filedocumented in this encounter Care Teams Professor Of Apologetics Relationship Specialty Start Date End Date Monica Garcia MD [address] [place] [address] PCP - General 01/06/13 02/27/17 documented as of this encounter
--- OUTSIDE RECORDS SUMMARY | 2024-07-20 18:31 | XMS_ITS | Encounter Summary ---
Author Organization [facility] [place] [address] Care Team Providers Care Military Exchange Wireless Manager Name Role Phone Monica Garcia MD Primary Care Provider [phone] Encounter Details Date Type Department Care Team (Late st Contact Info) Description 06/10/2014 Orders [place] [phone] Weston Figueroa MD [facility] DI[place]STIC [place] [address] Inconclusive mammogram (Primary Dx) Social History Tobacco Use Types [...] 3:30 PM EST Office [place] [address] Tarik Henry MD [facility] [place] [address] 09/22/2024 7:00 AM EST Appointment [place] [address] Luis Mcihael Jr., MD [facility] [place] [address] 09/22/2024 8:00 AM EST Office [place] [address] Luis Michael Jr., MD [facility] [place] [address] documented as of this encounter Results * Mammo call back [...] prior exams including routine CC and MLO [id number] ML views dating back to 10/20/03. There [...] in this encounter Visit Diagnoses Diagnosis Inconclusive mammogram- Primary Inconclusive mammogram documented in this encounter Care Teams Military Exchange Wireless Manager Relationship Specialty Start Date End Date Monica Garcia MD [address] [place] [address] PCP - General 01/06/13 02/27/17 documented as of this encounter
--- OUTSIDE RECORDS SUMMARY | 2024-07-20 18:32 | XMS_ITS | Encounter Summary ---
[place] [address] Care Team Providers Care Material Man Name Role Phone Monica Garcia MD Primary Care Provider [phone] Encounter Details Date Type Department Care Team (Latest Contact Info) Description 01/08/2012 3:30 PM EDT - 01/08/2012 11:59 PM EDT Hospital En[place] [address] Nephrolithiasis Social History Tobacco Use Types Packs/Day Years Used Date Smoking Tobacco: Never Alcohol Use Standard Drinks/Week Comments [...] (ACCUNEB) 0.63 mg/3 mL nebulizer solution 08/24/2010 MOMETASONE FUROATE (NASONEX NASL) by Nasal route daily. 05/31/2016 fluticasone-salmeterol (ADVAIR) 500-50 mcg/dose diskus inhaler Inhale 1 puff into the lungs 2 times daily as needed (winter time). 06/27/2017 norethindrone-ethinyl estradiol (OVCON-35, 28,) 0.4-35 mg-mcg per tablet Take 1 tablet by mouth daily. Please throw out the 7 placebo pills and start a new pack to take packs continuously. 84 tablet 4 08/09/2011 03/06/2012 TRIAMCINOLONE ACETONIDE (NASACORT AQ NASL) by Nasal route. 2011 predniSONE (DELTASONE) 20 mg tablet Take 25 mg by mouth daily. 07/03/2012 fexofenadine (JEREL) 60 mg tablet Take by mouth daily. 012 SERTRALINE HCL (SERTRALINE ORAL) 08/24/2010 03/31/2013 Evening Turpin Oil 500 mg Cap 08/24/2010 01/24/2015 FOLIC [...] 3:30 PM EST Office [place] [phone] Tarik Henry MD [facility] [place]OP[place] [address] 09/22/2024 7:00 AM EST Appointment [place] [phone] Ferdinand Michael Jr., MD [facility] [place] [address] 09/22/2024 8:00 AM EST Office [place] [address] Ferdinand Michael Jr., MD [facility] [place] [address] documented as of this encounter Procedures Procedure Name Priority Date/Time Associated Diagnosis Comments US RETROPERITONEAL COMPLETE Routine 01/08/2012 4:31 PM EDT Nephrolithiasis documented in this encounter Results * US retroperitoneal complete (01/08/2012 4:31 PM EDT) Anatomical Region Laterality Modality Abdomen Ultrasound 01/08/2012 4:31 PM EDT Narrative 01/08/2012 4:59 PM EDT ? Renal ? (Signed Final 01/08/2012 04:58 pm) Patient Info ID: ? [id number] ? : ??[birth year] (46 yrs) Name: ? JESSICA GTZ ? Visit Date: 01/08/2012 04:29 pm Performed By Performed By: ?Akash Muse RDMS Attending: ? Veronica GILL, Weston Maloney Referred By: ? FERDINAND MICHAEL MD Service(s) Provided URETRO - Retroperitoneal Complete - [id number] ? [id number] Indications Nephrolithiasis Right Kidney Size (cm) ?L: ??10.4 Cortical Thickness: ?Normal Cortical Echogenicity: ?? Normal Hydronephrosis: ?No sonographic evidence Left Kidney Size (cm) ?L: ??10.4 Cortical Thickness: ?Normal Cortical Echogenicity: ?? Normal Hydronephrosis: ?No sonographic evidence Comment: ? small upper and lower pole stones, non ? obstructing Urinary Bladder Comment: ?Partially distended, normal contour Impression Ultrasound - ??Retroperitoneal Complete - Summary Suspect two tiny non obstructing left renal stones, otherwise normal study. I ??viewed the images and agree with the above interpretation. Thank you for allowing us to participate in the care of JESSICA GTZ. Please do not hesitate to call if you have any questions. ? Weston Martin MD Electronically Signed Final Report ?? 01/08/2012 04:58 pm Procedure Note Weston Martin MD - 01/08/2012 Renal (Signed Final 01/08/2012 04:58 pm) Patient Info ID: [id number] : 61 (46 yrs) Name: JESSICA GTZ Visit Date: 01/08/2012 04:29 pm Performed By Performed By: Akash Muse RDMS Attending: Veronica GILL, Weston Moss. Referred By: FERDINAND MICHAEL MD Service(s) Provided URETRO - Retroperitoneal Complete - [id number] Indications Nephrolithiasis Right Kidney Size (cm) L: 10.4 Cortical Thickness: Normal Cortical Echogenicity: Normal Hydronephrosis: No sonographic evidence Left Kidney Size (cm) L: 10.4 Cortical Thickness: Normal Cortical Echogenicity: Normal Hydronephrosis: No sonographic evidence Comment: ? small upper and lower pole stones, non obstructing Urinary Bladder Comment: Partially distended, normal contour Impression Ultrasound - Retroperitoneal Complete - Summary Suspect two tiny non obstructing left renal stones, otherwise normal study. I viewed the images and agree with the above interpretation. Thank you for allowing us to participate in the care of JESSICA GTZ. Please do not hesitate to call if you have any questions. Weston Martin MD Electronically Signed Final Report 01/08/2012 04:58 pm Ferdinand Michael Jr., MD IMG US GEN ORDERAB LES documented in this encounter Visit Diagnoses Diagnosis Nephrolithiasis Calculus of kidney documented in this encounter Care Teams Material Man Relationship Specialty Start Date End Date Monica Garcia MD [address] [place] [address] PCP - General 07/18/10 03/05/12 documented as of this encounter
--- OUTSIDE RECORDS SUMMARY | 2024-07-20 18:32 | XMS_ITS | Encounter Summary ---
Author Organization [facility] [place] [address] Care Team Providers Care Paint Technician Name Role Phone None Primary Care Provider Unavailabl e Reason for Visit * Reason Comments Medication Refill Encounter Details Date Type Department Care Team (Late st Contact Info) Description 06/24/2012 Refill Obstetrics [place] [phone] Ramses Birch MD [facility] DR OBSTETRICS & [place] [address] Social History Tobacco Use Types Packs/Day Years [...] PM EST Office Visit [place] [phone] Tarik Henry MD [facility] DR [place] [address] 09/22/2024 7:00 AM EST Appointment [place] [phone] Luis Michael Jr., MD [facility] [place] [address] 09/22/2024 8:00 AM EST Office Visit Urology at [facility] [place] [address] Luis Michael Jr., MD [facility] [place] [address] documented as of this encounter Visit Diagnoses Not on filedocumented in this encounter Care Teams Paint Technician Relationship Specialty Start Date End Date None None PCP - General 03/06/12 01/05/13 documented as of this encounter
--- OUTSIDE RECORDS SUMMARY | 2024-07-20 18:32 | XMS_ITS | Encounter Summary ---
Author Organization [facility] [place] [address] Care Team Providers Care Clinical Team Lead Name Role Phone Monica Garcia MD Primary Care Provider [phone] Encounter Details Date Type Department Care Team (Late st Contact Info) Description 07/15/2011 Orders [place] [address] Nadia Stapleton APRN [facility] [place] [address] Nephrolithiasis (Primary Dx) Social History Tobacco Use [...] as of this encounter Progress Notes * Nadia Stapleton APRN - 07/15/2011 8:48 PM EST Pt considering surgical options for her 5 mm stone. Will set her up with K[facility] and discussion of surgical options with Dr. Michael. documented in this encounter Plan of Treatment Upcoming Encounters Date Type Department Care Team (Late st Contact Info) Description 08/07/2024 3:30 PM EST Office [place] [address] Tarik Henry MD [facility] [place] [address] 09/22/2024 7:00 AM EST [place] [address] Luis Michael Jr., MD [facility] [place] [address] 09/22/2024 8:00 AM EST [place] [address] Luis Michael Jr., MD [facility] [place] [address] documented as of this encounter Visit Diagnoses Diagnosis Nephrolithiasis- Primary Calculus of kidney documented in this encounter Care Teams Clinical Team Lead Relationship Specialty Start Date End Date Monica Garcia MD [address] [place] [address] PCP - General 07/18/10 03/05/12 documented as of this encounter
--- OUTSIDE RECORDS SUMMARY | 2024-07-20 18:32 | XMS_ITS | Encounter Summary ---
Author Organization [facility] [place] [address] Care Team Providers Care Title I Math Tutor Name Role Phone Monica Garcia MD Primary Care Provider [phone] Reason for Visit * Reason Comments Follow-up Encounter Details Date Type Department Care Team (Late st Contact Info) Description 01/06/2013 3:20 PM EDT Follow-[place] [address] CLINIC, Luis Hutchinson Jr., MD [facility] [place] [address] Urolithiasis (Primary Dx) Discharge Disposition: Home Social History [...] as of this encounter Progress Notes * Luis Michael Jr., MD - 01/06/2013 4:36 [...] there are no residual ureteral orrenal stones. Ultrasound 07/07 again suggested a 4-5mm [...] butter, berries, nuts and chocolate). She drinks some dairy. Review of Systems Gastrointestinal: Negative for abdominal [...] ultrasound from today. This reveals no evidenceof hydronephrosis or hydroureter. No stones are seen. I independently reviewed the CT from 07/2011 as well. This reveals no evidence of hydronephrosis, hydroureter, or urinary tract stones. Impression/Plan: Doing well, without interval symptomatic stone recurrence. We discussed that if she has recurrent stone activity, we can repeat 24h [...] 3:30 PM EST Office [place] [address] Tarik Henry MD [facility] [place] [address] 09/22/2024 7:00 AM EST Appointment [place] [phone] Luis Michael Jr., MD [facility] [place] [address] 09/22/2024 8:00 AM EST Office [place] [address] Luis Michael Jr., MD [facility] [place] [address] documented as of this encounter Visit Diagnoses Diagnosis Urolithiasis- Primary Urinary calculus, unspecified documented in this encounter Care Teams Title I Math Tutor Relationship Specialty Start Date End Date Monica Garcia MD [address] [place] [address] PCP - General 01/06/13 02/27/17 documented as of this encounter
--- OUTSIDE RECORDS SUMMARY | 2024-07-20 18:32 | XMS_ITS | Encounter Summary ---
Author Organization [facility] [place] [address] Care Team Providers Care New Order Clerk Name Role Phone None Primary Care Provider Unavailabl e Encounter Details Date Type Department Care Team (Late st Contact Info) Description 03/06/2012 3:10 PM EDT - 03/06/2012 11:59 PM EDT Hospital [place] [phone] Social History Tobacco Use Types Packs/Day Years [...] (ACCUNEB) 0.63 mg/3 mL nebulizer solution 08/24/2010 cetirizine (ZYRTEC) 10 mg tablet Take 10 mg by mouth daily. 02/12/2022 estradiol-levonorgestrel (CLIMARA PRO) 0.045-0.015 mg/[address] 1 patch onto the skin once a week. 4 patch 3 03/06/2012 07/03/2012 MOMETASONE FUROATE (NASONEX NASL) by Nasal route daily. 05/31/2016 fluticasone-salmeterol (ADVAIR) 500-50 mcg/dose diskus inhaler Inhale 1 puff into the lungs 2 times daily as needed (winter time). 06/27/2017 TRIAMCINOLONE ACETONIDE (NASACORT AQ NASL) by Nasal route. 2011 predniSONE (DELTASONE) 20 mg tablet Take 25 mg by mouth daily. 07/03/2012 fexofenadine (JEREL) 60 mg tablet Take by mouth daily. 012 SERTRALINE HCL (SERTRALINE ORAL) 08/24/2010 03/31/2013 Evening Rhodes Oil 500 mg Cap 08/24/2010 01/24/2015 FOLIC [...] 3:30 PM EST [place] [phone] Tarik Henry MD [facility] [place] [address] 09/22/2024 7:00 AM [place] [phone] Luis Michael Jr., MD [facility] [place] [address] 09/22/2024 8:00 AM EST Office Visit Urology at [facility] [place] [address] Luis Michael Jr., MD [facility] [address] documented as of this encounter Procedures Procedure Name Priority Date/Time Associated Diagnosis Comments WHOLESALE DIAMOND BROKER CYTOLOGY FINAL REPORT Routine 03/06/2012 8:45 PM EDT MAMMO SCREENING CAD BILATERAL Routine 03/06/2012 3:58 PM EDT documented in this encounter Results * WHOLESALE DIAMOND BROKER CYTOLOGY FINAL REPORT (03/06/2012 8:45 PM EDT) Open Tenter Operator Cytology Final Report ? [facility] ? Provider: ?? [place] BIRCH ?Pt. Name: ?? JESSICA GTZ ? Acc #: ?[id number] ?Pt. ? Col Date: ?? 03/06/2012 ? /Sex: ?1965,(46 ? years),Female ? Rec Date: ?? 03/06/2012 ? LOC: ?5L ? CYTOPATHOLOGY: ??WHOLESALE DIAMOND BROKER ? ---Adequacy--- ? Specimen submitted is satisfactory. ? Endocervical component present. ? ---Cytopathologic Diagnosis--- ? Infection and/or Reactive Repair Process. ? Note: ??Reactive changes are present in the epithelial cells (benign ? cellular changes). ??This Pap test is negative for intraepithelial lesion ? or malignancy. (NILM) ? 03/19/12 ?? Screened by: ??SLA ??CAR WORKER HELPER ? 03/23/12 ?? Verified by: ??DRE BARRAGAN MD - Pathologist ? ---Clinical Information--- ? HPV Option: ? Reflex HPV ? Preparation: ?Liquid Based Pap ? Specimen Source: ?Cervical Endocervical LBP ? LMP: ?continous bleeding ? Hormones?: ?Yes ? Hysterectomy?: ?No ?: ?No ?: ?No ? I.U.D.?: ?No ? Pelvic Radiation: ? No ? Prior WHOLESALE DIAMOND BROKER Therapy?: ? No ? Hist Abnl Pap/Biopsy?: ??Yes-pap after Cryo,LEEP ? Hist of HPV Vaccine?: ?? No ? Hist of Smoking?: ? No ? Hist of HAZEL exposure?: ??No ? Clinical Data, Significant Therapy and Clinical Impression: ? Note: ? The Pap test is a screening test for cervical cancer with an inherent ? false-negative rate dependent upon several variables. ??For further ? information please contact the [facility] Laboratory. ? Reference: ??Devika CS. ??Professor Of Visual Arts of Pap Smear Results. ??In: ? Sukumar BS, Roni HH, ed. ??The Pap Smear. ??[place]: ??Arnold, 2002: ? 71-77. KYRA QUAN 03/06/2012 8:45 PM EDT Indiana Birch MD PATHOLOGY/CYTOLOGY O RDERABLES KYRA QUAN * MAMMO DIGITAL BILATERAL SCREENING WITH CAD (03/06/2012 3:58 PM EDT) Anatomical Region Laterality Modality Breast Bilateral Mammography 03/06/2012 3:58 PM EDT Narrative 03/13/2012 9:10 AM EDT BILATERAL MAMMOGRAPHY ?? REASON FOR EXAM: Screening ?? TECHNIQUE: Cranio-caudal (CC) and mediolateral oblique (MLO) views of both breasts obtained with direct digital capture. The exam was evaluated by CAD Version 8.3.17. ?? FINDINGS: This is a negative mammogram (ACR Category 1). There is a stable fibroglandular pattern without significant change as compared to prior studies. There is no mammographic evidence of cancer. ? The breasts are heterogeneously dense which may limit mammographic sensitivity for the detection of malignancy. ? CONCLUSION ?? This is a NEGATIVE mammogram (ACR Category 1). Routine screening mammography is recommended with the frequency dependent on the patient's age and breast cancer risk factors. ?? A letter has been sent to this patient by the [facility]. Procedure Note Rola Chambers MD - 03/13/2012 BILATERAL MAMMOGRAPHY REASON FOR EXAM: Screening TECHNIQUE: Cranio-caudal (CC) and mediolateral oblique (MLO) views of both breasts obtained with direct digital capture. The exam was evaluated byCAD Version 8.3.17. FINDINGS: This is a negative mammogram (ACR Category 1). There is a stable fibroglandular pattern without significant change as compared to priorstudies. There is no mammographic evidence of cancer. The breasts are heterogeneously dense which may limit mammographicsensitivity for the detection of malignancy. CONCLUSION This is a NEGATIVE mammogram (ACR Category 1). Routine screeningmammography is recommended with the frequency dependent on the patient's age and breastcancer risk factors. A letter has been sent to this patient by the [facility]. Indiana Birch MD IMAna MAMMO ORDERABLES documented in this encounter Visit Diagnoses Not on filedocumented in this encounter Care Teams New Order Clerk Relationship Specialty Start Date End Date None None PCP - General 03/06/12 01/05/13 documented as of this encounter
--- OUTSIDE RECORDS SUMMARY | 2024-07-20 18:32 | XMS_ITS | Encounter Summary ---
Author Organization [facility] Address [facility] [place] [address] Care Team Providers Care Sales Compensation Analyst Name Role Phone Monica Garcia MD Primary Care Provider [phone] Encounter Details Date Type Department Care Team (Latest Contact Info) Description 07/27/2011 4:26 PM EST - 07/27/2011 11:59 PM [facility] Hospital [place] [address] CLINIC, DR KENZIE Michael, Luis Curry Jr., MD [facility] [place] [address] Nephrolithiasis Discharge Disposition: Home Social History Tobacco [...] (ACCUNEB) 0.63 mg/3 mL nebulizer solution 08/24/2010 TRIAMCINOLONE ACETONIDE (NASACORT AQ NASL) by Nasal route. 2011 predniSONE (DELTASONE) 20 mg tablet Take 25 mg by mouth daily. 07/03/2012 estradiol-norethindrone (COMBIPATCH) 0.05-0.14 mg/[address] 1 patch onto the skin twice a week. 8 patch 12 12/07/2010 12/07/2011 fexofenadine (JEREL) 60 mg tablet Take by mouth daily. 012 SERTRALINE HCL (SERTRALINE ORAL) 08/24/2010 03/31/2013 Evening [place] Oil 500 mg Cap 08/24/2010 01/24/2015 FOLIC ACID/VITAMIN B COMP W-C (B-COMPLEX WITH VITAMIN C ORAL) 08/24/2010 04/10/2016 SUMATRIPTAN SUCCINATE (IMITREX ORAL) 08/24/2010 05/01/2016 tacrolimus (PROTOPIC) 0.1 % ointment 1 Appl(s) Top Twice daily 08/24/2010 02/12/2022 ERGOCALCIFEROL, VITAMIN D2, (VITAMIN D ORAL) 08/24/2010 016 KETOCONAZOLE (NIZORAL TOP) Apply topically. 08/24/2010 02/12/2022 BUDESONIDE/FORMOTEROL FUMARATE (SYMBICORT INHL) 08/24/2010 documented as of this encounter Plan of Treatment Upcoming Encounters Date Type Department Care Team (Late st Contact Info) Description 08/07/2024 3:30 PM EST Office Visit [place] [phone] Tarik Henry MD [facility] [place] [address] 09/22/2024 7:00 AM EST Appointment [place] [phone] Luis Michael Jr., MD [facility] [place] [address] 09/22/2024 8:00 AM EST Office Visit Urology at [facility] [place] [address] Luis Michael Jr., MD [facility] [place] [address] documented as of this encounter Procedures Procedure Name Priority Date/Time Associated Diagnosis Comments CT ABDOMEN AND PELVIS WO CONTRAST Routine 07/27/2011 4:36 PM EST Nephrolithiasis documented in this encounter Results * CT abdomen & pelvis WO contrast (07/27/2011 4:36 PM EST) Anatomical Region Laterality Modality Abdomen, Pelvis Computed Tomogra phy 07/27/2011 4:36 PM EST Narrative 07/31/2011 8:[address] ABDOMEN AND PELVIS WITHOUT CONTRAST: HISTORY: ?? Low-dose stone protocol, left flank pain. ??Question stones. CONTRAST: ??None. COMPARISON: ??05/03. FINDINGS: ??There is no evidence of upper or lower urinary tract calculi. ??No hydronephrosis is noted. ??There is possibly a left ovarian or paraovarian cyst that measures 4.2 cm, suggest ultrasound for confirmation of this or further evaluation. ??The urinary bladder is unremarkable. ??No ureteral calculi are seen either. CONCLUSION: ?? 1. ??No evidence of urinary tract calculi. 2. ??Possible 4.2 cm left ovarian or paraovarian cyst, suggest ultrasound for further evaluation. Procedure Note Salvador Yang MD - 07/31/2011 CT ABDOMEN AND PELVIS WITHOUT CONTRAST: HISTORY: Low-dose stone protocol, left flank pain. Question stones. CONTRAST: None. COMPARISON: 05/03. FINDINGS: There is no evidence of upper or lower urinary tract calculi.No hydronephrosis is noted. There is possibly a left ovarian or paraovariancyst that measures 4.2 cm, suggest ultrasound for confirmation of this orfurther evaluation. The urinary bladder is unremarkable. No ureteral calculi areseen either. CONCLUSION: 1. No evidence of urinary tract calculi. 2. Possible 4.2 cm left ovarian or paraovarian cyst, suggest ultrasoundfor further evaluation. Luis Michael Jr., MD IMG CT ORDERABLES documented in this encounter Visit Diagnoses Diagnosis Nephrolithiasis Calculus of kidney documented in this encounter Care Teams Sales Compensation Analyst Relationship Specialty Start Date End Date Monica Garcia MD [address] [place] [address] PCP - General 07/18/10 03/05/12 documented as of this encounter
--- OUTSIDE RECORDS SUMMARY | 2024-07-20 18:32 | XMS_ITS | Encounter Summary ---
Author Organization [facility] [place] [address] Care Team Providers Care Credit Processor Name Role Phone Monica Garcia MD Primary Care Provider [phone] Encounter Details Date Type Department Care Team (Late st Contact Info) Description 01/09/2013 [place] [phone] Jennifer Romero MD [address] [place] [id number] Osteoporosis (Primary Dx) Social History Tobacco Use Types [...] 3:30 PM EST [place] [phone] [facility] [place] [address] 09/22/2024 7:00 AM [place] [address] Luis Michael Jr., MD [facility] [place] [address] 09/22/2024 8:00 AM [place] [address] Luis Michael Jr., MD [facility] [place] [address] documented as of this encounter Visit Diagnoses Diagnosis Osteoporosis- Primary Osteoporosis, unspecified documented in this encounter Care Teams Credit Processor Relationship Specialty Start Date End Date Monica Garcia MD [address] [place] [address] PCP - General 01/06/13 02/27/17 documented as of this encounter
--- OUTSIDE RECORDS SUMMARY | 2024-07-20 18:32 | XMS_ITS | Encounter Summary ---
Author Organization [facility] Address [facility] [place] [address] Care Team Providers Care Veterinary Assistant Name Role Phone Monica Garcia MD Primary Care Provider [phone] Encounter Details Date Type Department Care Team (Latest Contact Info) Description 02/13/2011 12:23 PM EDT - 02/13/2011 11:59 PM EDT Hospital Encounter XRay at [address] [place] [address] Routine check-up Social History Tobacco Use Types Packs/Day Years [...] (ACCUNEB) 0.63 mg/3 mL nebulizer solution 08/24/2010 estradiol-norethindrone (COMBIPATCH) 0.05-0.14 mg/[address] 1 patch onto the skin twice a week. 8 patch 12 12/07/2010 12/07/2011 amlodipine (NORVASC) 5 mg tablet Take 5 mg by mouth daily. 07/09/2011 fexofenadine (JEREL) 60 mg tablet Take by mouth daily. 012 SERTRALINE HCL (SERTRALINE ORAL) 08/24/2010 03/31/2013 azelastine (ASTELIN) 137 mcg nasal spray 08/24/2010 07/25/2011 Evening [place] Oil 500 mg Cap 08/24/2010 01/24/2015 FOLIC [...] 3:30 PM EST Office Visit Orthopaedics at [place] [phone] Tarik Henry MD [facility] [place] [address] 09/22/2024 7:00 AM EST Appointment Ultrasound at [place] [phone] Luis Michael Jr., MD [facility] [place] [address] 09/22/2024 8:00 AM EST Office Visit Urology at [place] [phone] Luis Michael Jr., MD [facility] [place] [address] documented as of this encounter Procedures Procedure Name Priority Date/Time Associated Diagnosis Comments DXA CENTRAL SPINE, HIP, AND/OR WHOLE BODY (GENERIC) Routine 02/13/2011 12:55 PM EDT Routine general medical examination at a health care facility documented in this encounter Results * DEXA CENTRAL-SPINE, HIP, AND/OR WHOLE BODY (02/13/2011 12:55 PM EDT) Anatomical Region Laterality Modality C-spine, Hip N/A Radiographic Rafaela ging 02/13/2011 12:5 5 PM EDT Narrative 02/14/2011 5:41 PM EDT DEXA, 02/13/11: ?? CLINICAL HISTORY: ??45-year-old woman with family history of 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 ?? FINDINGS: ?? Measurements were acquired at the lumbar spine and left hip. ?? The patient's lowest bone mineral density measurement is a T-score of -2.5 at the femoral neck. ??Although the patient is not yet 48 and does not meet strict criteria for a diagnosis by WHO criteria, I would consider this measurement to be diagnostic of osteoporosis and indicative of a high risk for future fracture. ?? IMPRESSION: Osteoporosis. ?? ESTIMATING FRACTURE RISK: ?? The relationship between bone mineral density (BMD) [...] website which you are encouraged to review. ?? DEXA data sheets with BMD measurements and plots are available in CIS under Radiology Images. Paper copies will be sent to providers without CIS access. If you have received this report without the data sheet and do not have access to CIS, please contact Radiology Collator at [phone] Saturday thru Saturday 8am-4pm. Procedure Note Sanket Zhou MD - 02/14/2011 DEXA, 02/13/11: CLINICAL HISTORY: 45-year-old woman with family history of 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 FINDINGS: Measurements were acquired at the lumbar spine and left hip. The patient's lowest bone mineral density measurement is a T-score of -2.5at the femoral neck. Although the patient is not yet 48 and does not meetstrict criteria for a diagnosis by WHO criteria, I would consider thismeasurement to be diagnostic of osteoporosis and indicative of a high risk for future fracture. IMPRESSION: Osteoporosis. ESTIMATING FRACTURE RISK: The relationship between bone mineral density (BMD) and risk of fractureis well established. As BMD decreases, risk increases. Quantifying risk is difficult and is usually limited to estimation of the relative risk - aterm which may have limited value when trying to discuss an individual's risk. Estimating the absolute risk for a patient requires an understanding ofthe incidence rate in a given population and consideration of multiple,partially independent, risk factors in addition to BMD. The World Health Organization (WHO) has developed a fracture riskprediction tool that calculates a ten-year risk of major osteoporotic fracture basedon femoral neck bone density measurements and nine clinical risk factors for individuals who have not been treated for 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 This is available through an interactive web-based interface (http://www.shef.ac.uk/FRAX/)and can [...] associated with most risk factors. For example, thesignificant increase in risk associated with multiple prior fractures compared to asingle prior fracture is not taken into account. Similarly, the location of aprevious fracture, the amount of glucocorticoids and number of cigarettes smokedare not considered. These limitations are discussed in a Frequently AskedQuestions section of the FRAX website which you are encouraged to review. DEXA data sheets with BMD measurements and plots are available in CIS under Radiology Images. Paper copies will be sent to providers without CIS access. If you have received this report without the data sheet and do not have access to CIS, please contact Radiology Collator at [phone] Saturday thru Saturday 8am-4pm. Bobby Diamond MD IMG DEXA ORDERABLE S documented in this encounter Visit Diagnoses Diagnosis Routine check-up Routine general medical examination at a health care facility documented in this encounter Care Teams Veterinary Assistant Relationship Specialty Start Date End Date Monica Garcia MD [address] [place] [address] PCP - General 07/18/10 03/05/12 documented as of this encounter
--- OUTSIDE RECORDS SUMMARY | 2024-07-20 18:32 | XMS_ITS | Encounter Summary ---
Author Organization [facility] [place] [address] Care Team Providers Care Grocery Deliverer Name Role Phone Monica Garcia MD Primary Care Provider Encounter Details Date Type Department Care Team (Late st Contact Info) Description 01/09/2013 Orders [place] [phone] Jennifer Romero MD [address] [place] [address] Osteoporosis (Primary Dx) Social History Tobacco Use [...] 3:30 PM EST Office [place] [phone] Tarik Henry MD [facility] [place] [address] 09/22/2024 7:00 AM EST [place] [address] Luis Michael Jr., MD [facility] [place] [address] 09/22/2024 8:00 AM EST Office [place] [address] Luis Michael Jr., MD [facility] [place] [address] documented as of this encounter Visit Diagnoses Diagnosis Osteoporosis- Primary Osteoporosis, unspecified documented in this encounter Care Teams Grocery Deliverer Relationship Specialty Start Date End Date Monica Garcia MD [address] [place] [address] PCP - General 01/06/13 02/27/17 documented as of this encounter
--- OUTSIDE RECORDS SUMMARY | 2024-07-20 18:32 | XMS_ITS | Encounter Summary ---
Author Organization [facility] [place] [address] Care Team Providers Care Electrical Estimator Name Role Phone None Primary Care Provider Unavailabl e Encounter Details Date Type Department Care Team (Latest Contact Info) Description 07/08/2012 3:24 PM EST - 07/08/2012 11:59 PM EST Hospital En[place] [phone] Nephrolithiasis Social History Tobacco Use Types Packs/Day [...] solution 08/24/2010 estradiol-levonorgestrel (CLIMARA PRO) 0.045-0.015 mg/[address] 1 patch onto the skin once a week. 4 patch 6 07/03/2012 01/17/2013 cetirizine (ZYRTEC) 10 mg tablet Take 10 mg by mouth daily. 02/12/2022 MOMETASONE FUROATE (NASONEX NASL) by Nasal route daily. 05/31/2016 fluticasone-salmeterol (ADVAIR) 500-50 mcg/dose diskus inhaler Inhale 1 puff into the lungs 2 times daily as needed (winter time). 06/27/2017 SERTRALINE HCL (SERTRALINE ORAL) 08/24/2010 03/31/2013 Evening [place] Oil 500 mg Cap 08/24/2010 01/24/2015 FOLIC [...] 3:30 PM EST Office Visit Orthopaedics at [place] [phone] Tarik Henry MD [facility] [place] [address] 09/22/2024 7:00 AM EST Appointment Ultrasound at [place] [phone] Ferdinand Michael Jr., MD [facility] [place] [address] 09/22/2024 8:00 AM EST Office Visit Urology at [place] [phone] Ferdinand Michael Jr., MD [facility] [place] [address] documented as of this encounter Procedures Procedure Name Priority Date/Time Associated Diagnosis Comments US RETROPERITONEAL COMPLETE STAT 07/08/2012 3:49 PM EST Nephrolithiasis documented in this encounter Results * US retroperitoneal complete (07/08/2012 3:49 PM EST) Anatomical Region Laterality Modality Abdomen Ultrasound 07/08/2012 3:49 PM EST Narrative 07/08/2012 5:17 PM EST ? Renal ? (Signed Final 07/08/2012 05:16 pm) Patient Info ID: ? [id number] ? : ??[birth year] (46 yrs) Name: ? JESSICA Charles GTZ ? Visit Date: 07/08/2012 03:45 pm Performed By Performed By: ?Genie Burciaga RDMS Attending: ? Rose Tineo MD Referred By: ? FERDINAND MICHAEL MD Service(s) Provided URETRO - Retroperitoneal Complete - [id number] ? [id number] Indications History of kidney stones Right Kidney Size (cm) ?L: ??10.3 Cortical Thickness: ?Normal Cortical Echogenicity: ?? Normal Hydronephrosis: ?No sonographic evidence Comment: ?Tiny upper and lower pole renal calculi, non ? obstructing Left Kidney Size (cm) ?L: ??10.1 Cortical Thickness: ?Normal Cortical Echogenicity: ?? Normal Hydronephrosis: ?No sonographic evidence Urinary Bladder Pre-void (cm) ? L: ??11.6 ?AP: ??8.1 ? TV: ??10.5 Vol (ml): ?516.6 Comment: ?Distended bladder, normal contour Impression Ultrasound - ??Retroperitoneal Complete - Summary Left Tiny upper and lower pole renal calculi, non obstructing similar to prior I ??viewed the images and agree with the above interpretation. Thank you for allowing us to participate in the care of JESSICA GTZ. Please do not hesitate to call if you have any questions. ? Rose Tineo MD Electronically Signed Final Report ?? 07/08/2012 05:16 pm Procedure Note Rose Tineo MD - 07/08/2012 Renal (Signed Final 07/08/2012 05:16 pm) Patient Info ID: [id number] : [birth year] (46 yrs) Name: JESSICA GTZ Visit Date: 07/08/2012 03:45 pm Performed By Performed By: Genie Burciaga RDMS Attending: Rose Tineo MD Referred By: FERDINAND MICHAEL MD Service(s) Provided URETRO - Retroperitoneal Complete - [id number] Indications History of kidney stones Right Kidney Size (cm) L: 10.3 Cortical Thickness: Normal Cortical Echogenicity: Normal Hydronephrosis: No sonographic evidence Comment: Tiny upper and lower pole renal calculi, non obstructing Left Kidney Size (cm) L: 10.1 Cortical Thickness: Normal Cortical Echogenicity: Normal Hydronephrosis: No sonographic evidence Urinary Bladder Pre-void (cm) L: 11.6 AP: 8.1 TV: 10.5 Vol (ml): 516.6 Comment: Distended bladder, normal contour Impression Ultrasound - Retroperitoneal Complete - Summary Left Tiny upper and lower pole renal calculi, non obstructing similar to prior I viewed the images and agree with the above interpretation. Thank you for allowing us to participate in the care of JESSICA GTZ. Please do not hesitate to call if you have any questions. Rose Tineo MD Electronically Signed Final Report 07/08/2012 05:16 pm Ferdinand Michael Jr., MD IM US GEN ORDERAB LES documented in this encounter Visit Diagnoses Diagnosis Nephrolithiasis Calculus of kidney documented in this encounter Care Teams Electrical Estimator Relationship Specialty Start Date End Date None None PCP - General 03/06/12 01/05/13 documented as of this encounter
--- OUTSIDE RECORDS SUMMARY | 2024-07-20 18:32 | XMS_ITS | Encounter Summary ---
Author Organization [facility] [place] [address] Care Team Providers Care Pooling Operator Name Role Phone Monica Garcia MD Primary Care Provider Reason for Visit * Reason Comments Nephrolithiasis Encounter Details Date Type Department Care Team (Late st Contact Info) Description 07/25/2011 9:30 AM EST [place] [address] Ferdinand Michael Jr., MD [facility] [place] [address] Nephrolithiasis (Primary Dx) Discharge Disposition: Home Social History [...] documented in this encounter Progress Notes * Kwaku Meraz LPN - 07/25/2011 11:07 AM ESTAddended by: KWAKU MERAZ on: 07/25/2011 Modules accepted: Orders * Ferdinand Michael Jr., MD - 07/25/2011 9:43 [...] achy in quality, intermittent in occurrence, without associatedleft flank discomfort. She denies gross hematuria, fever, [...] in the left lower pole. It is somewhat more echogenic than background and has twinkle artifact [...] waiting, SWL, and ureteroscopy, and the relative risks,benefits, and limitations of each. Given the inability to locate the stone on plain film and the uncertainty that u/s imaging could be clearly reproduced, we discussed that SWL may not be possible ifit cannot be definitely targeted. As such ureteroscopy may be preferable. She inquired about further imaging and we discussed pros and cons of CT for more definitive imaging, understanding that even if a stone is noted, it may be parenchymal and not accessible in the collecting system. Also, it maynot actually be the source of her symptoms. [...] 3:30 PM EST Office [place] [address] Tarik Henry MD [facility] DR [place] [address] 09/22/2024 7:00 AM EST [place] [address] Ferdinand Michael Jr., MD [facility] [place] [address] 09/22/2024 8:00 AM EST [place] [address] Ferdinand Michael Jr., MD [facility] [place] [address] documented as of this encounter Procedures Procedure Name Priority Date/Time Associated Diagnosis Comments URINE CULTURE Routine 07/25/2011 11:11 AM EST Nephrolithiasis documented in this encounter [...] or paraovarian cyst, suggest ultrasoundfor further evaluation. Ferdinand Michael Jr., MD IMG CT ORDERABLES * Urine culture Clean Catch Urine (07/25/2011 11:11 AM EST) Urine Culture ? Patient Name: JESSICA GTZ ? Ordered By: FERDINAND MICHAEL JR ? MR#: [id number] ?LOC: ??5B ? /Sex: ?? 3 (45 years), ? Female ? PROCEDURE: Urine Culture ?SOURCE: U CC ? COLLECTED: 07/25/2011 11:11 ? STARTED: 07/25/2011 13:13 ? FINAL REPORT ? Final Report ? Verified: 07:23 ? No growth (Less than 1,000 cfu/ml). ? ____ KYRA SELFENNIUM Urine specimen obtained by clean catch procedure (specimen) 07/25/2011 11:11 AM EST 07/25/2011 1:13 PM EST Ferdinand Michael Jr., MD MICROBIOLOGY - GEN ERAL ORDERABLES KYRA QUAN documented in this encounter Visit Diagnoses Diagnosis Nephrolithiasis- Primary Calculus of kidney Nephrolithiasis Calculus of kidney documented in this encounter Care Teams Pooling Operator Relationship Specialty Start Date End Date Monica Garcia MD [address] [place] [address] PCP - General 07/18/10 03/05/12 documented as of this encounter
--- OUTSIDE RECORDS SUMMARY | 2024-07-20 18:32 | XMS_ITS | Encounter Summary ---
Author Organization [facility] [place] [address] Care Team Providers Care Wood Stainer Name Role Phone Monica Garcia MD Primary Care Provider [phone] Reason for Visit * Reason Onset Date Comments Results 07/31/2011 Encounter Details Date Type Department Care Team (Late st Contact Info) Description 07/31/2011 Telephone [place] [address] Luis Michael Jr., MD [facility] [address] Results Social History Tobacco Use Types Packs/Day [...] She understands and will plan to call SCALEMAKER tomorrow. No urologic intervention needed at this time. documented in this encounter Plan of Treatment Upcoming Encounters Date Type Department Care Team (Late st Contact Info) Description 08/07/2024 3:30 PM EST Office Visit Orthopaedics at [place] [phone] Tarik Henry MD [facility] DR [place] [address] 09/22/2024 7:00 AM EST [place] [address] Luis Michael Jr., MD [facility] [place] [address] 09/22/2024 8:00 AM EST Office Visit Urology at [place] [phone] Luis Michael Jr., MD [facility] [place] [address] documented as of this encounter Visit Diagnoses Not on filedocumented in this encounter Care Teams Wood Stainer Relationship Specialty Start Date End Date Monica Garcia MD [address] [place] [address] PCP - General 07/18/10 03/05/12 documented as of this encounter
--- OUTSIDE RECORDS SUMMARY | 2024-07-20 18:32 | XMS_ITS | Encounter Summary ---
Author Organization [facility] [place] [address] Care Team Providers Care Bunch Maker Hand Name Role Phone Monica Garcia MD Primary Care Provider [phone] Reason for Visit * Reason Comments Ovarian Cyst Encounter Details Date Type Department Care Team (Late st Contact Info) Description 10/04/2011 3:30 PM EST Office Visit Obstetrics [place] [address] Michelle Walsh MD [facility] OBSTETRICS & [place] [address] Ovarian cystic mass (Primary Dx) Discharge Disposition: Home Social History [...] as of this encounter Progress Notes * Michelle Walsh MD - 10/04/2011 4:10 PM EST US only documented in this encounter Plan of Treatment Upcoming Encounters Date Type Department Care Team (Late st Contact Info) Description 08/07/2024 3:30 PM EST Office [place] [address] Tarik Henry MD [facility] DR ORTHOPAEDIC [place] [address] 09/22/2024 7:00 AM EST [place] [address] Luis Michael Jr., MD [facility] [place] [address] 09/22/2024 8:00 AM EST Office [place] [address] Luis Michael Jr., MD [facility] [place] [address] documented as of this encounter Visit Diagnoses Diagnosis Ovarian cystic mass- Primary Other and unspecified ovarian cyst documented in this encounter Care Teams Bunch Maker Hand Relationship Specialty Start Date End Date Monica Garcia MD [address] [place] [address] PCP - General 07/18/10 03/05/12 documented as of this encounter
--- OUTSIDE RECORDS SUMMARY | 2024-07-20 18:32 | XMS_ITS | Encounter Summary ---
[place] [address] Care Team Providers Care Steel Die Press Set Up Operator Name Role Phone Monica Garcia MD Primary Care Provider [phone] Encounter Details Date Type Department Care Team (Late st Contact Info) Description 08/09/2011 2:23 PM EST - 08/09/2011 11:59 PM [facility] Hospital [place] [address] Social History Tobacco Use Types Packs/Day Years [...] (ACCUNEB) 0.63 mg/3 mL nebulizer solution 08/24/2010 fluticasone-salmeterol (ADVAIR) 500-50 mcg/dose diskus inhaler Inhale [...] mouth daily. 07/03/2012 estradiol-norethindrone (COMBIPATCH) 0.05-0.14 mg/24 [address]Ind[address] 1 patch onto the skin twice a week. 8 patch 12 12/07/2010 12/07/2011 fexofenadine (JEREL) 60 mg tablet Take by mouth daily. 012 SERTRALINE HCL (SERTRALINE ORAL) 08/24/2010 03/31/2013 Evening [place] Oil 500 mg Cap 08/24/2010 01/24/2015 FOLIC [...] 3:30 PM EST Office [place] [phone] Tarik Henry MD [facility] [place] [address] 09/22/2024 7:00 AM EST [place] [phone] Luis Michael Jr., MD [facility] UROLOGY [place], [place] [phone] 09/22/2024 8:00 AM EST Office [place] [address] Luis Michael Jr., MD [facility] [place] [address] documented as of this encounter Visit Diagnoses Not on filedocumented in this encounter Care Teams Steel Die Press Set Up Operator Relationship Specialty Start Date End Date Monica Garcia MD [address] [place] [address] PCP - General 07/18/10 03/05/12 documented as of this encounter
--- OUTSIDE RECORDS SUMMARY | 2024-07-20 18:32 | XMS_ITS | Encounter Summary ---
Author Organization [facility] [place] [address] Care Team Providers Care Water Sponger Name Role Phone None Primary Care Provider Unavailabl e Encounter Details Date Type Department Care Team (Late Contact Info) Description 03/27/2012 Telephone [place] [phone] Jennifer Romero MD [address] [place] [address] Social History Tobacco Use Types Packs/Day Years [...] encounter Miscellaneous Notes * Telephone Encounter - Jennifer Romero MD - [...] 3:30 PM EST Office Visit Orthopaedics at [place] [address] Tarik Henry MD [facility] [place] [address] 09/22/2024 7:00 AM EST Appointment Ultrasound at [place] [phone] Luis Michael Jr., MD [place] [address] 09/22/2024 8:00 AM EST Office Visit Urology at [place] [phone] Luis Michael Jr., MD [place] [address] documented as of this encounter Visit Diagnoses Not on filedocumented in this encounter Care Teams Water Sponger Relationship Specialty Start Date End Date None None PCP - General 03/06/12 01/05/13 documented as of this encounter
--- OUTSIDE RECORDS SUMMARY | 2024-07-20 18:32 | XMS_ITS | Encounter Summary ---
Author Organization [facility] Address [facility] [place] [address] Care Team Providers Care Machine Filler Servicer Name Role Phone Monica Garcia MD Primary Care Provider [phone] Encounter Details Date Type Department Care Team (Latest Contact Info) Description 07/25/2011 9:01 AM EST - 07/25/2011 11:59 PM [facility] Hospital Encounter XRay at [address] [place] [address] Nephrolithiasis Social History Tobacco Use Types Packs/Day [...] SERTRALINE HCL (SERTRALINE ORAL) 08/24/2010 03/31/2013 Evening [place] Oil 500 mg Cap 08/24/2010 01/24/2015 FOLIC [...] 3:30 PM EST Office Visit Orthopaedics at [place] [phone] Tarik Henry MD [facility] [place] [address] 09/22/2024 7:00 AM EST Appointment Ultrasound at [place] [phone] Luis Michael Jr., MD [facility] [place] [address] 09/22/2024 8:00 AM EST Office Visit Urology at [place] [phone] Luis Michael Jr., MD [facility] [place] [address] documented as of this encounter Procedures Procedure Name Priority Date/Time Associated Diagnosis Comments XR ABDOMEN 1 VIEW Routine 07/25/2011 9:1 6 AM EST Calculus of kidney documented in this encounter Results * XR ABDOMEN 1 VIEW (07/25/2011 9:16 AM EST) Anatomical Region Laterality Modality Abdomen N/A Radiographic Rafaela ging 07/25/2011 9:16 AM EST Narrative 07/25/2011 3:04 PM EST EXAMINATION: KUB HISTORY: Nephrolithiasis. DESCRIPTION: Gas and stool in colon overlie the lower pole of the right kidney decreasing the sensitivity for detecting right lower pole renal stones. No urinary tract stones are seen. Bowel gas pattern is normal. Procedure Note Weston [place] MD - 07/25/2011 EXAMINATION: KUB HISTORY: Nephrolithiasis. DESCRIPTION: Gas and stool in colon overlie the lower pole of the rightkidney decreasing the sensitivity for detecting right lower pole renal stones. No urinary tract stones are seen. Bowel gas pattern is normal. Luis Michael Jr., MD IMG DX ORDERABLES documented in this encounter Visit Diagnoses Diagnosis Nephrolithiasis Calculus of kidney documented in this encounter Care Teams Machine Filler Servicer Relationship Specialty Start Date End Date Monica Garcia MD [address] [place] [address] PCP - General 07/18/10 03/05/12 documented as of this encounter
--- OUTSIDE RECORDS SUMMARY | 2024-07-20 18:32 | XMS_ITS | Encounter Summary ---
Author Organization [facility] Victor [place] [address] Care Team Providers Care Chemistry Intern Name Role Phone None Primary Care Provider Unavailabl e Reason for Visit * Reason Comments Osteoporosis Encounter Details Date Type Department Care Team (Late st Contact Info) Description 03/25/2012 2:00 PM EDT Office [place] [address] Cuate Hall MD [facility] [place] [address] Osteoporosis (Primary Dx) Discharge Disposition: Home Social History [...] kg (147 lb 6.4 oz) 03/25/2012 1:45 P M EDT Height 173.2 cm (5' 8.2) 03/25/2012 1:45 PM EDT Body Mass Index 22.28 03/25/2012 1:45 PM EDT documented in this encounter Progress Notes * Cuate Hall MD - 03/26/2012 8:46 AM EDT I interviewed and examined patientt along with Dr. Romero and agree with her plans and recommendations. Trino Hall MD * Jennifer Romero MD - 03/25/2012 2:12 PM [...] 46 y.o. year old female evaluated by BUILDING ENGINEER and found to have osteoporosis on Dexa [...] with osteoporosis on DEXA scan on 01/2011. Her osteoporosis is likely due to her chronic steroid use.Her blood work done in 2007 makes hyperparathyroidism less likely. By FRAX analysis, patient's 10-yr probability for major osteoporotic fracturewas 8.3% and hip fracture 1.9%. Patient has low risk for fracture based on her FRAX score and does not need treatment with a bisphosphonate at present.Patient is on estrogen patch for her perimenopausal symptoms which should also protect her from 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 Recommendation: Diet-Increase dietary calcium intake like milk and yogurt . Recommend total Calcium (Dietary+supplement) of 1200-1500mg and vitamin Q06170 IU daily.Patient should not exceed 1500 mg [...] with Dr Isabel Romero MD Endocrinology Fellow 9635 documented in this encounter Plan of Treatment Upcoming Encounters Date Type Department Care Team (Late st Contact Info) Description 08/07/2024 3:30 PM EST Office [place] [address] Tarik Henry MD [facility] [address] [place] [address] 09/22/2024 7:00 AM EST [place] [phone] Luis Michael Jr., MD [facility] [place] [address] 09/22/2024 8:00 AM EST Office [place] [phone] Luis Michael Jr., MD [facility] [place] [address] documented as of this encounter Procedures Procedure Name Priority Date/Time Associated Diagnosis Comments PTH Routine 03/25/2012 2:53 PM EDT Osteoporosis VITAMIN D, 25-HYDROXY Routine 03/25/2012 2:53 PM EDT Osteoporosis CALCIUM Routine 03/25/2012 2:53 PM EDT Osteoporosis documented in this encounter Results * Calcium (03/25/2012 2:53 PM EDT) [facility] Calcium 9.0 8.5 - 10.5 mg/dL [facility] Blood specimen (specimen) 03/25/2012 2:53 PM EDT 03/25/2012 3:18 PM EDT Narrative Resulting Agency Comment Spec In Lab Cuate Hall MD CHEMISTRY ORDERABLES [facility] * PTH (03/25/2012 2:53 PM EDT) Parathyroid Hormone 24 15 - 65 pg/mL [facility] Blood specimen (specimen) 03/25/2012 2:53 PM EDT 03/25/2012 3:18 PM EDT Narrative Resulting Agency Comment Spec In Lab Cuate Hall MD CHEMISTRY ORDERABLES Performing Organization Address [facility] de Phone Number [facility] * VIT D Total Evaluation (03/25/2012 2:53 PM EDT) Vitamin D Total 25 OH 46 30 - 100 ng/mL [facility] Comment: Deficient <10 ng/mL Insufficient 10 to 29 ng/mL Sufficient 30 to 100 ng/mL Potential Intoxication >100 ng/mL According to the [place] National Osteoporosis Foundation, Vitamin D concentrations >30 ng/mL are sufficient to protect bone health. ??The National Kidney Foundation has similarly stated that patients with Vitamin D concentrations <30ng/mL should be considered to be insufficient or deficient. http://www.kidney.org/professionals/KDOQI/guidelines_bone/Guide7.htm http://www.nof.org/professionals/clinical-guidelines The [employer] iSYS Vitamin D Immunoassay detects both 25-OH Vitamin D2 and 25-OH Vitamin D3, but only a total Vitamin D concentration is reported. Please note, the performing location for this test has changed. ??As of 10/02/2011 the Vitamin D Total, 25 Hydroxy assays are being analyzed by the [facility] Chemistry Laboratory. ??There is NO CHANGE in units. ??Please contact the chemistry laboratory at [phone] with questions. Blood specimen (specimen) 03/25/2012 2:53 PM EDT 03/25/2012 3:18 PM EDT Narrative Resulting Agency Comment Spec In Lab Cuate Hall MD CHEMISTRY ORDERABLES Performing Organization Address [facility] Co de Phone Number [facility] documented in this encounter Visit Diagnoses Diagnosis Osteoporosis- Primary Osteoporosis, unspecified documented in this encounter Care Teams Chemistry Intern Relationship Specialty Start Date End Date None None PCP - General 03/06/12 01/05/13 documented as of this encounter
--- OUTSIDE RECORDS SUMMARY | 2024-07-20 18:32 | XMS_ITS | Encounter Summary ---
Author Organization [facility] [place] [address] Care Team Providers Care Crisis Mental Health Therapist Name Role Phone Monica Garcia MD Primary Care Provider [phone] Reason for Visit * Reason Comments Nephrolithiasis Encounter Details Date Type Department Care Team (Late st Contact Info) Description 01/08/2012 4:20 PM EDT [place] [address] CLINIC, Ferdinand Hutchinson Jr., MD [facility] [place] [address] Nephrolithiasis (Primary Dx) Discharge Disposition: Home Social [...] Notes * Ferdinand Michael Jr., MD - 01/08/2012 5:06 PM EDT Subjective: Patient ID: Jessica Gtz is a 46 y.o. female. HPI Ms. Jessica Gtz returns for follow up regarding her nephrolithiasis. She is s/p SWL in 2007 [...] visit, CT confirmed there are no residual ureteralor renal stones. Her stone analysis showed 90% calcium [...] This reveals no evidenceof hydronephrosis or hydroureter. A possible 4 mm [...] and requests re-evaluation in 6 months. She willcall or return sooner if new interval problems arise. documented in this encounter Plan of Treatment Upcoming Encounters Date Type Department Care Team (Late st Contact Info) Description 08/07/2024 3:30 PM EST Office Visit Orthopaedics at [place] [phone] Tarik Henry MD [facility] [place] [address] 09/22/2024 7:00 AM EST Appointment Ultrasound at [place] [phone] Ferdinand Michael Jr., MD [facility] [place] [address] 09/22/2024 8:00 AM EST [place] [phone] Ferdinand Michael Jr., MD [facility] [place] [address] documented as of this encounter Results * US retroperitoneal complete (07/08/2012 3:49 PM EST) Anatomical Region Laterality Modality Abdomen Ultrasound 07/08/2012 3:49 PM EST Narrative 07/08/2012 5:17 PM EST ? Renal ? (Signed Final 07/08/2012 05:16 pm) Patient Info ID: ? [id number] ? : ??[birth year] (46 yrs) Name: ? JESSICA GTZ ? Visit Date: 07/08/2012 03:45 pm Performed By Performed By: ?Genie Burciaga RDMS Attending: ? Noman GILL, Rose Narayan Referred By: ? FERDINAND MICHAEL MD Service(s) Provided URETRO - Retroperitoneal Complete - [id number] ? [id number] Indications History of kidney stones Right Kidney [...] Final 07/08/2012 05:16 pm) Patient Info ID: [id number] : [birth year] (46 yrs) Name: JESSICA GTZ Visit Date: 07/08/2012 03:45 pm Performed By Performed By: Genie Burciaga RDMS Attending: Rose Tineo MD Referred By: FERDINAND MICHAEL MD Service(s) Provided URETRO - Retroperitoneal Complete - [id number] Indications History of kidney stones Right Kidney [...] to call if you have any questions. Rsoe Tineo MD Electronically Signed Final Report 07/08/2012 05:16 pm Ferdinand Michael Jr., MD IMG US GEN ORDERAB LES documented in this encounter Visit Diagnoses Diagnosis Nephrolithiasis- Primary Calculus of kidney Nephrolithiasis Calculus of kidney documented in this encounter Care Teams Crisis Mental Health Therapist Relationship Specialty Start Date End Date Monica Garcia MD [address] [place] [address] PCP - General 07/18/10 03/05/12 documented as of this encounter
--- OUTSIDE RECORDS SUMMARY | 2024-07-20 18:32 | XMS_ITS | Encounter Summary ---
Author Organization [facility] [place] [address] Care Team Providers Care Vocational Technical Education Teacher Name Role Phone Monica Garcia MD Primary Care Provider [phone] Encounter Details Date Type Department Care Team (Latest Contact Info) Description 02/13/2011 12:22 PM EDT - 02/13/2011 11:59 PM EDT Hospital [place] [address] Monica Garcia MD [address] [place], [place] [address] Discharge Disposition: Home Social History Tobacco Use [...] 137 mcg nasal spray 08/24/2010 07/25/2011 Evening [place] Oil 500 mg Cap 08/24/2010 01/24/2015 FOLIC [...] 3:30 PM EST Office Visit [place] [phone] Tarik Henry MD [facility] [place] [address] 09/22/2024 7:00 AM EST Appointment [place] [phone] Luis Michael Jr., MD [facility] [place] [address] 09/22/2024 8:00 AM EST Office [place] [phone] Luis Michael Jr., MD [facility] [place] [address] documented as of this encounter Visit Diagnoses Not on filedocumented in this encounter Care Teams Vocational Technical Education Teacher Relationship Specialty Start Date End Date Monica Garcia MD [address] [place] [address] PCP - General 07/18/10 03/05/12 documented as of this encounter
--- OUTSIDE RECORDS SUMMARY | 2024-07-20 18:32 | XMS_ITS | Encounter Summary ---
Author Organization [facility] [place] [address] Care Team Providers Care Structural Steel Ironworker Name Role Phone Monica Garcia MD Primary Care Provider Encounter Details Date Type Department Care Team (Latest Contact Info) Description 02/16/2013 12:47 PM EDT - 02/16/2013 11:59 PM EDT Hospital Encounter [place] [phone] CLINIC, Jennifer Beckman MD [address] [place] [address] Osteoporosis Discharge Disposition: Home Social History Tobacco [...] (ACCUNEB) 0.63 mg/3 mL nebulizer solution 08/24/2010 CLIMARA PRO 0.045-0.015 mg/24 hr apply 1 patch every week 12 patch 3 01/17/2013 01/06/2014 cetirizine (ZYRTEC) 10 mg tablet Take 10 mg by mouth daily. 02/12/2022 MOMETASONE FUROATE (NASONEX NASL) by Nasal route daily. 05/31/2016 fluticasone-salmeterol (ADVAIR) 500-50 mcg/dose diskus inhaler Inhale 1 puff into the lungs 2 times daily as needed (winter time). 06/27/2017 SERTRALINE HCL (SERTRALINE ORAL) 08/24/2010 03/31/2013 Evening [place] Oil 500 mg Cap 08/24/2010 01/24/2015 FOLIC [...] 3:30 PM EST Office [place] [address] Tarik Henry MD [facility] ORTHOPAEDIC [place] [address] 09/22/2024 7:00 AM EST Appointment [place] [phone] Luis Michael Jr., MD [facility] [place] [address] 09/22/2024 8:00 AM EST Office [place] [phone] Luis Michael Jr., MD [facility] [place] [place] [address] documented as of this encounter Procedures Procedure Name Priority Date/Time Associated Diagnosis Comments DXA CENTRAL SPINE, HIP, AND/OR WHOLE BODY (GENERIC) Routine 02/16/2013 1:10 PM EDT Osteoporosis, unspecified documented in this encounter Results * Dexa central-spine, hip, and/or whole body (02/16/2013 1:10 PM EDT) Anatomical Region Laterality Modality C-spine, Hip N/A Radiographic Rafaela ging 02/16/2013 1:10 PM EDT Narrative 02/19/2013 3:31 PM EDT Examination DXA CENTRAL-SPINE,HIP, AND/OR WHOLE BODY Clinical History osteoporosis LAST DEXA 02/13/11 Technique Scans were acquired at the lumbar spine, left hip, . Findings Lowest T-score at a diagnostic region of interest: T-score: -2.5,TENZIN: Femoral neck, WHO diagnosis: Osteoporosis ??................COMPARISON....................... Recent scan: 2010 Total Hip: Compared to the most recent scan, no significant change. ?? Total spine: ??Compared to the most recent scan, no significant change. ?? Impression The measurements fulfill the WHO classification for osteoporosis and there is no significant change. The fracture risks are increased. _ Estimating Fracture Risk: The [...] BMD measurements and plots are available in [employer] under the imaging tab. Paper copies will be sent to providers without [employer] access. If you have received this report without the data sheet and do not have access to [employer] please contact Radiology Filler Leaf Cutter Long at [phone] Saturday thru Saturday 8am-4pm. Procedure Note Simin Preston MD - 02/19/2013 Examination DXA CENTRAL-SPINE,HIP, AND/OR WHOLE BODY Clinical History osteoporosis LAST DEXA 02/13/11 Technique Scans were acquired at the lumbar spine, left hip, . Findings Lowest T-score at a diagnostic region of interest: T-score: -2.5,TENZIN: Femoral neck, WHO diagnosis: Osteoporosis ................COMPARISON....................... Recent scan: 2010 Total Hip: Compared to the most recent scan, no significant change. Total spine: Compared to the most recent scan, no significant change. Impression The measurements fulfill the WHO classification for osteoporosis and thereis no significant change. The fracture risks are increased. _ Estimating Fracture Risk: The [...] copies will be sent to providers without [employer]access. If you have received this report without the data sheet and do not haveaccess to [employer], please contact Radiology Filler Leaf Cutter Long at [phone] Saturdaythru Saturday 8am-4pm. Cuate Hall MD IMG DEXA ORDERABLES documented in this encounter Visit Diagnoses Diagnosis Osteoporosis Osteoporosis, unspecified documented in this encounter Care Teams Structural Steel Ironworker Relationship Specialty Start Date End Date Monica Garcia MD [address] [place] [address] PCP - General 01/06/13 02/27/17 documented as of this encounter
--- OUTSIDE RECORDS SUMMARY | 2024-07-20 18:32 | XMS_ITS | Encounter Summary ---
Author Organization [facility] [place] [address] Care Team Providers Care In Store Marketer Name Role Phone None Primary Care Provider Unavailabl e Reason for Visit * Reason Comments Follow-up hormone patch Encounter Details Date Type Department Care Team (Late st Contact Info) Description 07/03/2012 4:00 PM EST Follow-Up Obstetrics [place] [address] Ramses Birch MD [facility] OBSTETRICS & [place] [address] Destiney Gomes MD [facility] OBSTETRICS & [place] [address] Perimenopause (Primary Dx); Vulvar discomfort Discharge Disposition: Home Social History Tobacco Use [...] documented in this encounter Progress Notes * [place] MD - 07/04/2012 12:41 PM [...] acutely if symptoms recur. [place] MD * Destiney Gomes - 07/03/2012 4:39 PM EST Gynecology Clinic Follow Up Visit Chief Complaint Patient presents with ??? Follow-up hormone patch HPI: Ms. Albright is a 46 year old P3 perimenopausal woman who presents for follow up of her Climera patch (estradiol-levonorgestrel 0.045 - 0.015). She was started on this by Dr. Birch 02/2012 for hotflashes, mood swings, vaginal dryness. Today, Ms. Albright [...] discomfort. When this is not happening, she reportsthat the labia appear normal and she feels well lubricated for intercourse. Of note, Ms. Albright hasa remote h/o episiotomy with no known residual complications. Of note, had TVUS 07/2011 with endometrial stripe of 4.5 mm. Past Medical History Diagnosis Date ??? Asthma ??? Raynaud's disease ??? History of nephrolithiasis ??? Migraines ??? Abnormal glandular Papanicolaou smear of cervix age 15 ??? Vaginal infection PID at 15 Past Surgical History Procedure Date ??? Created by [employer]) Procedure Date: 01/16/2008 ??? Lithotripsy Current outpatient [...] ??? SERTRALINE HCL (SERTRALINE ORAL) ??? Evening Alpha Oil 500 mg Cap ??? albuterol (ACCUNEB) [...] abdominal pain, diarrhea, constipation, abdominal distention and anal bleeding. Genitourinary: Negative for dysuria, urgency, frequency, hematuria, [...] is not associated with any known triggers. Patient seems to have adequate estrogen with the patch. Unable to decifer what may be causing this as itis not occuring at this time. ?? Patient to call when she experiences a flare of her left labial issue and we will see her in 24-48 hours. Given patient business cards. ?? Reports that she is following an judicial clerk for her osteoporosis ?? If bleeding persists at irregular intervals, likely perimenopausal, but consider repeat TVUS at that time to help r/o endometrial pathology. DESTINEY GOMES MD Obgyn PGY4. documented in this encounter Plan of Treatment Upcoming Encounters Date Type Department Care Team (Late st Contact Info) Description 08/07/2024 3:30 PM EST Office [place] [address] Tarik Henry MD [facility] [place] [address] 09/22/2024 7:00 AM EST [place] [phone] Luis Michael Jr., MD [facility] [place] [address] 09/22/2024 8:00 AM EST [place] [phone] Luis Michael Jr., MD [facility] [place] [place] [address] documented as of this encounter Visit Diagnoses Diagnosis Perimenopause- Primary Symptomatic menopausal or female climacteric states Vulvar discomfort Other vulvodynia documented in this encounter Care Teams In Store Marketer Relationship Specialty Start Date End Date None None PCP - General 03/06/12 01/05/13 documented as of this encounter
--- OUTSIDE RECORDS SUMMARY | 2024-07-20 18:32 | XMS_ITS | Encounter Summary ---
[place] [address] Care Team Providers Care Electrical Software Engineer Name Role Phone Monica Garcia MD Primary Care Provider [phone] Encounter Details Date Type Department Care Team (Late st Contact Info) Description 10/04/2011 3:30 PM EST - 10/04/2011 11:59 PM [facility] Hospital [place] [address] Ovarian cyst Social History Tobacco Use Types Packs/Day Years [...] SERTRALINE HCL (SERTRALINE ORAL) 08/24/2010 03/31/2013 Evening New [place] Oil 500 mg Cap 08/24/2010 01/24/2015 FOLIC [...] 3:30 PM EST [place] [address] Tarik Henry MD [facility] ORTHOPAEDIC [place] [address] 09/22/2024 7:00 AM [place] [address] Luis Michael Jr., MD [facility] UROLOGY [place], [place] [id number] 09/22/2024 8:00 AM EST [place] [address] Luis Michael Jr., MD [facility] [place] [address] documented as of this encounter Procedures Procedure Name Priority Date/Time Associated Diagnosis Comments US TRANSVAGINAL NON OB Routine 10/04/2011 4:01 PM EST Ovarian cyst documented in this encounter Results * US Transvaginal non OB (10/04/2011 4:01 PM EST) Anatomical Region Laterality Modality Ultrasound 10/04/2011 4:01 PM EST Narrative 10/04/2011 4:09 PM EST ?Gynecological Report ? (Signed Final 10/04/2011 04:08 pm) Patient Info ID: ? [id number] ? : [birth year] (46 yrs) Name: ? JESSICA GTZ ? Visit Date: 10/04/2011 03:50 pm Performed By Performed By: ?Lay Nichols RDMS Attending: ? Marcus Hill MD, Michelle Referred By: ? BOBBY LAGOS MD Service(s) Provided UTV - Ultrasound - Transvaginal - [id number] ? [id number] Indications Reason for exam and clinical history: 45 year old with ovarian cyst (see previous TVUS); please evaluate for resolution / interval change ------- History ------- Age: ?? 46 ------ Uterus ------ Uterus: ? Visualized Position: ?? Anteverted Size (cm) ?L: ??8.32 ?W: ?? 4.88 ? H: ??4.33 Vol (ml): ?92.1 Endometrium Endometrium: ?Normal appearance Thickness(mm): ?1.8 Right Ovary Status: ?? Visualized [...] are normal. The endometrial echo complex measures 1.8 mm. This study was performed transvaginally. I ??viewed the images and agree with the above interpretation. Thank you for allowing us to participate in the care of JESSICA GTZ. Please do not hesitate to call if you have any questions. ? Michelle Hill MD Electronically Signed Final Report ?? 10/04/2011 04:08 pm Procedure Note Michelle Walsh MD - 10/04/2011 Gynecological Report (Signed Final 10/04/2011 04:08 pm) Patient Info ID: [id number] : [birth year] (46 yrs) Name: JESSICA GTZ Visit Date: 10/04/2011 03:50 pm Performed By Performed By: Lay Nichols [facility] Attending: Michelle Walsh MD Referred By: BOBBY LAGOS MD Service(s) Provided [facility] - Ultrasound - Transvaginal - [phone] [id number] Indications Reason for exam and clinical history: 45 year old with ovarian cyst (see previous TVUS); please evaluate for resolution / interval change ------- History ------- Age: 46 ------ Uterus [...] are normal. The endometrial echo complex measures 1.8 mm. This study was performed transvaginally. I viewed the images and agree with the above interpretation. Thank you for allowing us to participate in the care of JESSICA GTZ. Please do not hesitate to call if you have any questions. Michelle Hill MD Electronically Signed Final Report 10/04/2011 04:08 pm Bobby Lagos MD IMG US PELVIC ORDE RABLES documented in this encounter Visit Diagnoses Diagnosis Ovarian cyst Other and unspecified ovarian cyst documented in this encounter Care Teams Electrical Software Engineer Relationship Specialty Start Date End Date Monica Garcia MD [address] [place] [address] PCP - General 07/18/10 03/05/12 documented as of this encounter
--- OUTSIDE RECORDS SUMMARY | 2024-07-20 18:32 | XMS_ITS | Encounter Summary ---
[place] [address] Care Team Providers Care Mall Manager Name Role Phone Monica Garcia MD Primary Care Provider [phone] Reason for Visit * Reason Comments Osteoporosis Encounter Details Date Type Department Care Team (Late st Contact Info) Description 03/31/2013 1:30 PM EDT Office [place] [address] Jennifer Romero MD [address] [place] [address] Osteoporosis (Primary Dx) Discharge Disposition: Home Social [...] 173.4 cm (5' 8.27) 03/31/2013 1:45 PM ED T Body Mass Index 21.96 03/31/2013 1:45 PM EDT documented in this encounter Progress Notes * Dang Sanchez MD - 03/31/2013 3:25 PM [...] supplement to keep vitD in mid normal range further (25vitD was ok at [address] last [address] Romero will let her know lab results and will follow DEXA scan again in 2 yrs. DANG SANCHEZ MD * Jennifer Romero MD - 03/31/2013 1:57 PM EDT Endocrinology Consultation Patient: Name: Stacy Albright : 1965 PCP: MONICA GARCIA MD Stacy Albright was seen in Endocrine clinic for follow up of osteoporosis Brief History of Present Illness: Stacy Albright is a very pleasant 47 y.o. year old female for follow up of 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She was evaluated by ROOMS DIRECTOR and found to have osteoporosis on Dexa [...] 2007 and again in 2009 with ureteral stentsplacement.Her work up in 2007 revealed increased urinary [...] with Dr Daniel Romero MD Endocrinology Fellow 1883 documented in this encounter Plan of Treatment Upcoming Encounters Date Type Department Care Team (Late st Contact Info) Description 08/07/2024 3:30 PM EST Office [place] [address] Tarik Henry MD [facility] [place] [address] 09/22/2024 7:00 AM EST [place] [address] Luis Michael Jr., MD [facility] [place] [address] 09/22/2024 8:00 AM EST [place] [phone] Luis Michael Jr., MD [facility] [place] [address] documented as of this encounter Procedures Procedure Name Priority Date/Time Associated Diagnosis Comments VITAMIN D, 25-HYDROXY Routine 03/31/2013 2:27 PM EDT Osteoporosis CALCIUM Routine 03/31/2013 2:27 PM EDT Osteoporosis documented in this encounter Results * VIT D Total Evaluation (03/31/2013 2:27 PM EDT) Vitamin D Total 25 OH 44 30 - 100 ng/mL [facility] Comment: Deficient <10 ng/mL Insufficient 10 [...] D concentration is reported. Blood specimen (specimen) 03/31/2013 2:27 PM EDT 03/31/2013 2:43 PM EDT Narrative Resulting Agency Comment Spec In Lab Dang Sanchez MD CHEMISTRY ORDERAB LES Performing Organization Address City/[facility]/ZIP Co de Phone Number KYRA QUAN * Calcium (03/31/2013 2:27 PM EDT) Calcium 9.5 8.5 - 10.5 mg/dL [facility] Blood specimen (specimen) 03/31/2013 2:27 PM EDT 03/31/2013 2:43 PM EDT Narrative Resulting Agency Comment Spec In Lab Dang Sanchez MD CHEMISTRY ORDERAB LES Performing Organization Address City/[facility] Co de Phone Number KYRA QUAN documented in this encounter Visit Diagnoses Diagnosis Osteoporosis- Primary Osteoporosis, unspecified documented in this encounter Care Teams Mall Manager Relationship Specialty Start Date End Date Monica Garcia MD [address] [place] [address] PCP - General 01/06/13 02/27/17 documented as of this encounter
--- OUTSIDE RECORDS SUMMARY | 2024-07-20 18:32 | XMS_ITS | Encounter Summary ---
Author Organization [facility] [place] [address] Care Team Providers Care Filter Filler Name Role Phone Monica Garcia MD Primary Care Provider [phone] Reason for Visit * Reason Comments Medication Refill Encounter Details Date Type Department Care Team (Late st Contact Info) Description 01/17/2013 Refill Obstetrics [place] [phone] Genoveva Gomes MD [facility] DR OBSTETRICS [place] [address] Social History Tobacco Use Types Packs/Day Years [...] 3:30 PM EST Office Visit [place] [phone] Tarik Henry MD [facility] [place] [address] 09/22/2024 7:00 AM EST Appointment [place] [address] Luis Michael Jr., MD [facility] [place] [address] 09/22/2024 8:00 AM EST Office [place] [address] Luis Michael Jr., MD [facility] [place] [address] documented as of this encounter Visit Diagnoses Not on filedocumented in this encounter Care Teams Filter Filler Relationship Specialty Start Date End Date Monica Garcia MD [address] [place] [address] PCP - General 01/06/13 02/27/17 documented as of this encounter
--- OUTSIDE RECORDS SUMMARY | 2024-07-20 18:32 | XMS_ITS | Encounter Summary ---
Author Organization [facility] [place] [address] Care Team Providers Care Tubular Products Fabricator Name Role Phone Monica Garcia MD Primary Care Provider [phone] Reason for Visit * Reason Comments Follow-up Encounter Details Date Type Department Care Team (Late st Contact Info) Description 07/09/2011 2:00 PM EST [place] [address] CLINIC, Alexi Navarroley [facility] [address] Nephrolithiasis (Primary Dx) Discharge Disposition: Home Social [...] documented in this encounter Progress Notes * Ilya Nadia Bermudez, SACHA - 07/09/2011 2:20 PM EST Chief [...] EST Office Visit Orthopaedics at [place] [phone] Tarik Henry MD [facility] [place] [address] 09/22/2024 7:00 AM EST [place] [address]1000 Ferdinand Michael Jr., MD [facility] [place] [address] 09/22/2024 8:00 AM EST [place] [address]1000 Ferdinand Michael Jr., MD [facility] [place] [address] documented as of this encounter Results * US retroperitoneal complete (01/08/2012 4:31 PM EDT) Anatomical Region Laterality Modality Abdomen Ultrasound 01/08/2012 4:31 PM EDT Narrative 01/08/2012 4:59 PM EDT ? Renal ? (Signed Final 01/08/2012 04:58 pm) Patient Info ID: ? [id number] ? : ??[birth year] (46 yrs) Name: ? JESSICAKATIE GTZ ? Visit Date: 01/08/2012 04:29 pm Performed By Performed By: ?Akash Muse RDMS Attending: ? Veronica GILL, Weston Maloney Referred By: ? FERDINAND MICHAEL MD Service(s) Provided URETRO - Retroperitoneal Complete - [id number] ? [id number] Indications Nephrolithiasis Right Kidney Size (cm) ?L: [...] Final 01/08/2012 04:58 pm) Patient Info ID: [id number] : [birth year] (46 yrs) Name: JESSICA GTZ Visit Date: 01/08/2012 04:29 pm Performed By Performed By: Akash Muse RDMS Attending: Weston Martin MD. Referred By: FERDINAND MICHAEL MD Service(s) Provided URETRO - Retroperitoneal Complete - [id number] Indications Nephrolithiasis Right Kidney Size (cm) L: [...] kidney documented in this encounter Care Teams Tubular Products Fabricator Relationship Specialty Start Date End Date Monica Garcia MD [address] [place] [address] PCP - General 07/18/10 03/05/12 documented as of this encounter
--- OUTSIDE RECORDS SUMMARY | 2024-07-20 18:32 | XMS_ITS | Encounter Summary ---
Author Organization [facility] [place] [address] Care Team Providers Care Carriage Operator Name Role Phone None Primary Care Provider Unavailabl e Reason for Visit * Reason Comments Follow-up f/u ovarian cyst/ an nual Encounter Details Date Type Department Care Team (Late st Contact Info) Description 03/06/2012 3:45 PM EDT Follow-Up Obstetrics [place] [address] CLINIC, Ramses Caba MD [facility] OBSTETRICS & [place] [address] Pap smear for cervical cancer screening (Primary Dx); Perimenopause; Osteoporosis Discharge Disposition: Home Social History Tobacco [...] 172.5 cm (5' 7.91) 03/06/2012 3:49 PM ED T Body Mass Index 22.26 03/06/2012 3:49 PM EDT documented in this encounter Progress Notes * Aylin Masters MD - 03/10/2012 7:38 AM EDT I was the attending physician supervising the resident in the above care. We discussed her assessment and plan at the time of her visit and I agree with Dr. Birch's documentation. * Ramses Birch - 03/06/2012 4:12 PM EDT REAL ESTATE SALES MANAGER Comprehensive History and Physical Exam Stacy Albright [id number] 1965 Service Date: 03/06/2012 ID/CC: 46 y.o. year old woman here for annual visit Issues she maddi like to discuss today: -daily vaginal bleeding on OCPs -grumpy, hair loss, hot flashes, night sweats -labial changes 'shrank and sore,' painful on outside with intercourse Gynecologic hx: menarche 11, menses q28d X4 days with 1d heavy, used to have moliminal symptoms butnot now (see hx below) One abnormal PAP as teenager s/p cryo, normal since. H/o chlamydia in 20s treated, no issues since. Sexually active with only Two years ago started on hormonal patch for perimenopausal symptoms including mood change, hair loss, hot flashes, night sweats. This patch gave resolution to her symptoms. However she still had somehair loss so then increased dose. She then started having irregular bleeding, dysmenorrhea. Would have bleeding for an entire month at a time. [...] painful on the outside with intercourse. She also has some vaginal dryness and intercourse is uncomfortable. Problem List: Patient Active Problem List Diagnoses ??? Asthma ??? Nephrolithiasis ??? Raynaud's disease ??? Migraines ??? Perimenopause Past PROGRAM DIRECTOR/TRAFFIC DIRECTOR History: Pregnancies: OB History Grav Para Term [...] Surgical History Procedure Date ??? Created by [employer] Cathy(MSUROL) Procedure Date: 01/16/2008 ??? Lithotripsy Family History: [...] mg-mcg per tablet Take 1 tablet by mouthdaily. Please throw out the 7 placebo pills [...] ??? SERTRALINE HCL (SERTRALINE ORAL) ??? Evening [place] Oil 500 mg Cap ??? albuterol (ACCUNEB) [...] lb) Please see PE section below for non-policy change clerks supervisor exam Female property portfolio officer present for breast and pelvic exam Breasts: breasts appear normal, no suspicious masses, no skin or nipple changes or axillary nodes, symmetric fibrous changes in both upper outer quadrants. Pelvic exam: VULVA: normal appearing vulva with no masses, tenderness or lesions, right labia majora rodriguez thenleft, some obliteration of posterior aspect of left [...] I see no documentation in the record that this was previously reviewed with the patient.) ASSESSMENT: 46 y.o. year old perimenopausal female here for annual with physical exam. After discussion with patient of options of treatment of [...] may require treatment. Given history of nephrolithiasis aswell this could represent hyperparathyroidism. PLAN (include teaching [...] eD - please see PE section for non-policy change clerks supervisor exam Subjective: Patient ID: Stacy Albright [...] 3:30 PM EST Office [place] [address] Tarik Henry MD [facility] [place] [address] 09/22/2024 7:00 AM EST [place] [address] Luis Michael Jr., MD [facility] [address] 09/22/2024 8:00 AM EST [place] [address] Luis Michael Jr., MD [facility] [place] [address] documented as of this encounter Procedures Procedure Name Priority Date/Time Associated Diagnosis Comments CYTOPATHOLOGY GYNECOLOGICAL Routine 03/06/2012 5:00 PM EDT Pap smear for cervical cancer screening documented in this encounter Results * Cytopathology Gynecological (03/06/2012 5:00 PM EDT) AP Specimen 03/06/2012 5:00 PM EDT 03/06/2012 5:00 PM EDT Narrative ELIZABETHCHRISTINE KADEEM - 03/06/2012 5:00 PM EDT Specimen requisition ordered. ??Separate Pathology report to follow Aylin Masters MD PATHOLOGY/CYTOLOGY O RDERABLES KYRA ANDERSONJAYLYN documented in this encounter Visit Diagnoses Diagnosis Pap smear for cervical cancer screening- Primary Screening for malignant neoplasm of the cervix Perimenopause Symptomatic menopausal or female climacteric states Osteoporosis Osteoporosis, unspecified documented in this encounter Care Teams Carriage Operator Relationship Specialty Start Date End Date None None PCP - General 03/06/12 01/05/13 documented as of this encounter
--- OUTSIDE RECORDS SUMMARY | 2024-07-20 18:32 | XMS_ITS | Encounter Summary ---
Author Organization [facility] [place] [address] Care Team Providers Care Cost Accounting Analyst Name Role Phone None Primary Care Provider Unavailabl e Reason for Visit * Reason Comments Nephrolithiasis Encounter Details Date Type Department Care Team (Late st Contact Info) Description 07/08/2012 4:20 PM EST Follow-[place] [address] CLINIC, Ferdinand Hutchinson Jr., MD [facility] [place] [address] Nephrolithiasis (Primary Dx) Discharge Disposition: Home Social [...] Notes * Ferdinand Michael Jr., MD - 07/08/2012 4:55 [...] nuts and chocolate). She drinks some dairy. She takes a calcium supplement for osteoporosis, [...] declines any intervention, elects watchful waiting, and requests re-evaluation in 6 months. She will call or return sooner if new interval problems arise. documented in this encounter Plan of Treatment Upcoming Encounters Date Type Department Care Team (Late st Contact Info) Description 08/07/2024 3:30 PM EST Office [place] [address] Tarik Henry MD [facility] [place] [address] 09/22/2024 7:00 AM EST [place]oint[place] [address] Ferdinand Michael Jr., MD [facility] [address] 09/22/2024 8:00 AM EST Office Visit Urology at [place] [phone] Ferdinand Michael Jr., MD [facility] [address] documented as of this encounter Results * US retroperitoneal complete (01/06/2013 2:23 PM EDT) Anatomical Region Laterality Modality Abdomen Ultrasound 01/06/2013 2:23 PM EDT Narrative 01/06/2013 2:34 PM EDT ? Renal ? (Signed Final 01/06/2013 02:33 pm) Patient Info ID: ?[id number] ?: ??[birth year] (47 yrs) Name: ?JESSICA GTZ ?Visit Date: 01/06/2013 02:22 pm Performed By Performed By: ?Hernan GARNER, ??Xiomy Attending: ? Veronica GILL, Weston Maloney Referred By: ? FERDINAND MICHAEL MD Service(s) Provided URETRO - Retroperitoneal Complete - [id number] ? [id number] Indications History of kidney stones Comparison Ultrasound: 07/08/12 Right Kidney Size (cm) ?L: ??10.2 Cortical Thickness: ? Normal Cortical Echogenicity: ??Normal Hydronephrosis: ? No sonographic evidence Left Kidney Size (cm) ?L: ??11 Cortical Thickness: ? Normal Cortical Echogenicity: ??Normal Hydronephrosis: ? No sonographic evidence Urinary Bladder Pre-void (cm) ? L: ??3.2 ? AP: ??4.4 ? TV: ??8.4 Vol (ml): ?61.9 Comment: ?Partially distended, normal contour Impression Ultrasound - ??Retroperitoneal Complete - Summary Normal renal and bladder ultrasound. I ??viewed the images and agree with the above interpretation. Thank you for allowing us to participate in the care of JESSICA GTZ. Please do not hesitate to call if you have any questions. ? Weston Martin MD Electronically Signed Final Report ?? 01/06/2013 02:33 pm Procedure Note Weston Martin MD - 01/06/2013 Renal (Signed Final 01/06/2013 02:33 pm) Patient Info ID: [id number] : [birth year] (47 yrs) Name: JESSICA GTZ Visit Date: 01/06/2013 02:22 pm Performed By Performed By: Xiomy Becerra RDMS Attending: Weston Martin MD. Referred By: FERDINAND MICHAEL MD Service(s) Provided URETRO - Retroperitoneal Complete - [id number] Indications History of kidney stones Comparison Ultrasound: 07/08/12 Right Kidney Size (cm) L: 10.2 Cortical Thickness: Normal Cortical Echogenicity: Normal Hydronephrosis: No sonographic evidence Left Kidney Size (cm) L: 11 Cortical Thickness: Normal Cortical Echogenicity: Normal Hydronephrosis: No sonographic evidence Urinary Bladder Pre-void (cm) L: 3.2 AP: 4.4 TV: 8.4 Vol (ml): 61.9 Comment: Partially distended, normal contour Impression Ultrasound - Retroperitoneal Complete - Summary Normal renal and bladder ultrasound. I viewed the images and agree with the above interpretation. Thank you for allowing us to participate in the care of JESSICA GTZ. Please do not hesitate to call if you have any questions. Weston Martin MD Electronically Signed Final Report 01/06/2013 02:33 pm Ferdinand Michael Jr., MD IMG US GEN ORDERAB LES documented in this encounter Visit Diagnoses Diagnosis Nephrolithiasis- Primary Calculus of kidney Nephrolithiasis Calculus of kidney documented in this encounter Care Teams Cost Accounting Analyst Relationship Specialty Start Date End Date None None PCP - General 03/06/12 01/05/13 documented as of this encounter
--- OUTSIDE RECORDS SUMMARY | 2024-07-20 18:32 | XMS_ITS | Encounter Summary ---
[place] [address] Care Team Providers Care Doll Wig Maker Name Role Phone Monica Garcia MD Primary Care Provider [phone] Encounter Details Date Type Department Care Team (Latest Contact Info) Description 01/06/2013 2:08 PM EDT - 01/06/2013 11:59 PM EDT Hospital [place] [address] Nephrolithiasis Social History Tobacco Use Types Packs/Day [...] SERTRALINE HCL (SERTRALINE ORAL) 08/24/2010 03/31/2013 Evening [place] Oil 500 mg Cap 08/24/2010 01/24/2015 FOLIC [...] 3:30 PM EST Office [place] [address] Tarik Henry MD [facility] [place] [address] 09/22/2024 7:00 AM EST [place] [address] Ferdinand Michael Jr., MD [facility] [place] [address] 09/22/2024 8:00 AM EST [place] [address] Ferdinand Michael Jr., MD [facility] [place] [address] documented as of this encounter Procedures Procedure Name Priority Date/Time Associated Diagnosis Comments US RETROPERITONEAL COMPLETE STAT 01/06/2013 2:23 PM EDT Nephrolithiasis documented in this encounter Results * US retroperitoneal complete (01/06/2013 2:23 PM EDT) Anatomical Region Laterality Modality Abdomen Ultrasound 01/06/2013 2:23 PM EDT Narrative 01/06/2013 2:34 PM EDT ? Renal ? (Signed Final 01/06/2013 02:33 pm) Patient Info ID: ?[id number] ?: ??[birth year] (47 yrs) Name: ?JESSICA GTZ ?Visit Date: 01/06/2013 02:22 pm Performed By Performed By: ?Hernan GARNER, ??Xiomy Attending: ? Veronica GILL, Weston Maloney Referred By: ? FERDINAND MICHAEL MD Service(s) Provided URETRO - Retroperitoneal Complete - [id number] ? [id number] Indications History of kidney stones Comparison Ultrasound: [...] Final 01/06/2013 02:33 pm) Patient Info ID: [id number] : [birth year] (47 yrs) Name: JESSICA GTZ Visit Date: 01/06/2013 02:22 pm Performed By Performed By: Xiomy Becerra RDMS Attending: Weston Martin MD. Referred By: FERDINAND MICHAEL MD Service(s) Provided URETRO - Retroperitoneal Complete - [id number] Indications History of kidney stones Comparison Ultrasound: [...] kidney documented in this encounter Care Teams Doll Wig Maker Relationship Specialty Start Date End Date Monica Garcia MD [address] [place] [address] PCP - General 01/06/13 02/27/17 documented as of this encounter
--- OUTSIDE RECORDS SUMMARY | 2024-07-20 18:32 | XMS_ITS | Encounter Summary ---
Author Organization [facility] [place] [address] Care Team Providers Care Health And Safety Specialist Name Role Phone Monica Garcia MD Primary Care Provider [phone] Encounter Details Date Type Department Care Team (Late st Contact Info) Description 08/07/2011 Orders Only Obstetrics [place] [phone] Bobby Diamond MD [facility] OBSTETRICS & [place] [address] Ovarian cyst (Primary Dx) Social History Tobacco Use Types [...] 3:30 PM EST [place] [phone] Tarik Henry MD [facility] [place] [address] 09/22/2024 7:00 AM [place] [address] Luis Michael Jr., MD [facility] [place] [address] 09/22/2024 8:00 AM [place] [address] Luis Michael Jr., MD [facility] [place] [address] documented as of this encounter Visit Diagnoses Diagnosis Ovarian cyst- Primary Other and unspecified ovarian cyst documented in this encounter Care Teams Health And Safety Specialist Relationship Specialty Start Date End Date Monica Garcia MD [address] [place] [address] PCP - General 07/18/10 03/05/12 documented as of this encounter
--- OUTSIDE RECORDS SUMMARY | 2024-07-20 18:32 | XMS_ITS | Encounter Summary ---
Author Organization [facility] Address [facility] [place] [address] Care Team Providers Care Fbi Field Agent Name Role Phone Monica Garcia MD Primary Care Provider [phone] Reason for Visit * Reason Comments Follow-up US Menstrual Problem [address] [facility] currently on period today Encounter Details Date Type Department Care Team (Late st Contact Info) Description 08/09/2011 3:30 PM EST Follow-Up Obstetrics [place] [address] Bobby Lagos MD [facility] DR OBSTETRICS & [place] [address] Ovarian cyst (Primary Dx); Abnormal bleeding in menstrual cycle Discharge Disposition: Home Social History Tobacco Use [...] this encounter Patient Instructions * Patient Instructions* Bobby Lagos MD - 08/09/2011 5:32 PM EST At [...] TVUS. documented in this encounter Progress Notes * Bobby Lagos MD - 08/09/2011 11:46 AM EST Subjective: Patient ID: Jessica Albright is a 45 y.o. female. CC: Ovarian [...] irregular and she bled for up to 1.5weeks. She attributes some change to the Combipatch, she had been switched from the estrogen only patch. She takes this for menopausal symptoms including hair loss, dryness, mood and hot flashes. Hersymptoms have improved since Combipatch. She also takes Evening Oketo everyday to help with cramping and evening out her periods. 07/31/2011 encounter Luis Michael Jr., MD Signed Luis Michael Jr., MD 07/31/11 06:[address] reviewed, no stones seen. Left ovarian or paraovarian cyst noted. I recommended that she see herGYN for further discussion and/or eval. She understands and will plan to call TRACTOR CRANE OPERATOR tomorrow. No urologic intervention needed at this [...] Surgical History Procedure Date ??? Created by Azonia E.S.W.L.(MSUROL) Procedure Date: 01/16/2008 ??? Lithotripsy Family [...] 3:30 PM EST Office [place] [phone] Tarik Henry MD [facility] [place] [address] 09/22/2024 7:00 AM EST Appointment [place] [phone] Luis Michael Jr., MD [facility] [place] [address] 09/22/2024 8:00 AM EST Office [place] [address] Luis Michael Jr., MD [facility] [place] [address] documented as of this encounter Results * US Transvaginal non OB (10/04/2011 4:01 PM EST) Anatomical Region Laterality Modality Ultrasound 10/04/2011 4:01 PM EST Narrative 10/04/2011 4:09 PM EST ?Gynecological Report ? (Signed Final 10/04/2011 04:08 pm) Patient Info ID: ? [id number] ? : ??[birth year] (46 yrs) Name: ? JESSICA ALBRIGHT ? Visit Date: 10/04/2011 03:50 pm Performed By Performed By: ?Lay Nichols RDMS Attending: ? Marcus Hill MD, Michelle Referred By: ? BOBBY LAGOS MD Service(s) Provided [facility] - Ultrasound - Transvaginal - [id number] ? [id number] Indications Reason for exam and clinical history: [...] to participate in the care of JESSICA ALBRIGHT. Please do not hesitate to call if you have any questions. ? Michelle Hill MD Electronically Signed Final Report ?? 10/04/2011 04:08 pm Procedure Note Michelle Walsh MD - 10/04/2011 Gynecological Report (Signed Final 10/04/2011 04:08 pm) Patient Info ID: [id number] : [birth year] (46 yrs) Name: JESSICA ALBRIGHT Visit Date: 10/04/2011 03:50 pm Performed By Performed By: Lay Nichols [facility] Attending: Michelle Walsh MD Referred By: BOBBY LAGOS MD Service(s) Provided [facility] - Ultrasound - Transvaginal - [id number] Indications Reason for exam and clinical history: [...] to participate in the care of JESSICA ALBRIGHT. Please do not hesitate to call if you have any questions. Michelle Hill MD Electronically Signed Final Report 10/04/2011 04:08 pm Bobby Lagos MD IMG US PELVIC ORDE BLAS documented in this encounter Visit Diagnoses Diagnosis Ovarian cyst- Primary Other and unspecified ovarian cyst Abnormal bleeding in menstrual cycle Unspecified disorder of menstruation and other abnormal bleeding from female genital tract Ovarian cyst Other and unspecified ovarian cyst documented in this encounter Care Teams Fbi Field Agent Relationship Specialty Start Date End Date Monica Garcia MD [address] [place] [address] PCP - General 07/18/10 03/05/12 documented as of this encounter
--- OUTSIDE RECORDS SUMMARY | 2024-07-20 18:32 | XMS_ITS | Encounter Summary ---
[place] [address] Care Team Providers Care Python Programmer Name Role Phone Monica Garcia MD Primary Care Provider [phone] Encounter Details Date Type Department Care Team (Latest Contact Info) Description 07/09/2011 12:42 PM EST - 07/09/2011 11:59 PM EST Hospital Encounter [place] [address] Nephrolithiasis Social History Tobacco Use Types Packs/Day [...] (ACCUNEB) 0.63 mg/3 mL nebulizer solution 08/24/2010 predniSONE (DELTASONE) 20 mg tablet Take 25 mg by mouth daily. 07/03/2012 estradiol-norethindrone (COMBIPATCH) 0.05-0.14 mg/[address] 1 patch onto the skin twice a week. 8 patch 12 12/07/2010 12/07/2011 fexofenadine (JEREL) 60 mg tablet Take by mouth daily. 012 SERTRALINE HCL (SERTRALINE ORAL) 08/24/2010 03/31/2013 azelastine (ASTELIN) 137 mcg nasal spray 08/24/2010 07/25/2011 Evening Sturkie Oil 500 mg Cap 08/24/2010 01/24/2015 FOLIC [...] EST Office Visit Orthopaedics at [place] [phone] Tarik Henry MD [facility] [place] [address] 09/22/2024 7:00 AM EST Appointment [place] [address]1000 Luis Michael Jr., MD [facility] [place] [address] 09/22/2024 8:00 AM EST Office [place] [address]1000 Luis Michael Jr., MD [facility] [place] [address] [phone] (work) documented as of this encounter Procedures Procedure Name Priority Date/Time Associated Diagnosis Comments US RETROPERITONEAL COMPLETE Routine 07/09/2011 1:31 PM EST Nephrolithiasis documented in this encounter Results * US retroperitoneal complete (07/09/2011 1:31 PM EST) Anatomical Region Laterality Modality Abdomen Ultrasound 07/09/2011 1:31 PM EST Narrative 07/09/2011 1:47 PM EST ? Renal Report ? (Signed Final 07/09/2011 01:47 pm) Patient Info ID: ? [id number] ? : ??[birth year] (45 yrs) Name: ? JESSICA GTZ ? Visit Date: 07/09/2011 01:28 pm Performed By Performed By: ?Daphne Menjivar RDMS Associate: ? Luciano GILL, Sumanth Beltran Attending: ? Luna GILL, Genie Dumont Referred By: ? CIERA ARMENDARIZ Accession#: ?[id number] Service(s) Provided URETRO - Retroperitoneal Complete - [id number] ? [id number] Indications H/o nephrolithiasis, assess for new stones Comparison Renal and bladder ultrasound, 12/07/10. Right Kidney Size (cm) ?L: ??10.57 Cortical Thickness: ?Normal Cortical Echogenicity: ?? Normal Hydronephrosis: ?No sonographic evidence Left Kidney Size (cm) ?L: ??11.21 Cortical Thickness: ?Normal Cortical Echogenicity: ?? Normal Hydronephrosis: ?No sonographic evidence Comment: ?5 mm stone lower pole Urinary Bladder Pre-void (cm) ? L: ??12.14 ? AP: ??8.92 ?TV: ??10.32 Vol (ml): ?585.1 Comment: ?Normal. Impression Ultrasound - ??Retroperitoneal Complete - Summary 1. ??Non-obstructing 5mm left lower pole calculus, not seen on prior. ??Kidneys are otherwise normal. 2. ??Normal bladder. I ??viewed the images and agree with the above interpretation. Thank you for allowing us to participate in the care of JESSICA GTZ. Please do not hesitate to call if you have any questions. ?Genie Carrasco MD Electronically Signed Final Report ?? 07/09/2011 01:47 pm Film and interpretation reviewed by the attending Procedure Note Genie Carrasco MD - 07/09/2011 Renal Report (Signed Final 07/09/2011 01:47 pm) Patient Info ID: [id number] : [birth year] (45 yrs) Name: JESSICA GTZ Visit Date: 07/09/2011 01:28 pm Performed By Performed By: Daphne Menjivar RDMS Associate: Sumanth Wolf MD Attending: Genie Carrasco MD Referred By: CIERA OSBORNE [facility] Service(s) Provided URETRO - Retroperitoneal Complete - [id number] Indications H/o nephrolithiasis, assess for new stones Comparison Renal and bladder ultrasound, 12/07/10. Right Kidney Size (cm) L: 10.57 Cortical Thickness: Normal Cortical Echogenicity: Normal Hydronephrosis: No sonographic evidence Left Kidney Size (cm) L: 11.21 Cortical Thickness: Normal Cortical Echogenicity: Normal Hydronephrosis: No sonographic evidence Comment: 5 mm stone lower pole Urinary Bladder Pre-void (cm) L: 12.14 AP: 8.92 TV: 10.32 Vol (ml): 585.1 Comment: Normal. Impression Ultrasound - Retroperitoneal Complete - Summary 1. Non-obstructing 5mm left lower pole calculus, not seen on prior. Kidneys are otherwise normal. 2. Normal bladder. I viewed the images and agree with the above interpretation. Thank you for allowing us to participate in the care of JESSICA GTZ. Please do not hesitate to call if you have any questions. Genie Carrasco MD Electronically Signed Final Report 07/09/2011 01:47 pm Film and interpretation reviewed by the attending Lucy Rueda MD IMG GEN PRITCHARDNatalie ODONNELL documented in this encounter Visit Diagnoses Diagnosis Nephrolithiasis Calculus of kidney documented in this encounter Care Teams Python Programmer Relationship Specialty Start Date End Date Monica Garcia MD [address] [place] [address] PCP - General 07/18/10 03/05/12 documented as of this encounter
--- OUTSIDE RECORDS SUMMARY | 2024-07-20 18:33 | XMS_ITS | Encounter Summary ---
Author Organization [facility] [place] [address] Care Team Providers Care Socially Responsible Investment Adviser Name Role Phone Monica Garcia MD Primary Care Provider [phone] Encounter Details Date Type Department Care Team (Late st Contact Info) Description 12/07/2010 [place] [address]-1000 Luis Michael Jr., MD [facility] [place] [address] Social History Tobacco Use Types Packs/Day Years [...] 3:30 PM EST Office [place] [phone] Tarik Henry MD [facility] [place] [address] 09/22/2024 7:00 AM EST [place] [phone] Luis Michael Jr., MD [facility] [place] [address] 09/22/2024 8:00 AM EST [place] [phone] Luis Michael Jr., MD [facility] [place] [address] documented as of this encounter Procedures Procedure Name Priority Date/Time Associated Diagnosis Comments US RETROPERITONEAL COMPLETE Routine 12/07/2010 3:48 PM EDT documented in this encounter Results * US RETROPERITONEAL COMPLETE (12/07/2010 3:48 PM EDT) Anatomical Region Laterality Modality Abdomen Ultrasound 12/07/2010 3:48 PM EDT Narrative 12/07/2010 4:19 PM EDT ? Adult Renal Report ? (Signed Final 12/07/2010 03:27 pm) Patient Info ID: ?[id number] ?: ??[birth year] (45 yrs) Name: ?JESSICAKATIE GTZ ?Visit Date: 12/07/2010 03:16 pm Procedures URETRO - Retroperitoneal Complete - [id number] ? [id number] Indications ? Stones ? Hydronephrosis ------- History ------- S/P Uretroscopy Right Kidney Size (cm) ?L: ??10.7 Cortical Thickness: ? Normal Cortical Echogenicity: ??Normal Hydronephrosis: ? No sonographic evidence Left Kidney Size (cm) ?L: ??10.7 Cortical Thickness: ? Normal Cortical Echogenicity: ??Normal Hydronephrosis: ? No sonographic evidence Comment: ?No evidence for echogenic stones or ? pelviecaliectasis. Urinary Bladder Pre-void (cm) ? L: ??6.5 ? AP: ??4.6 ? TV: ??10.2 Vol (ml): ?159.7 Comment: ?Partially distended, normal contour. ??Bilateral ? ureteral jets demonstrated. Impression Ultrasound - ??Retroperitoneal Complete - Summary Normal renal ultrasound. No stones identified. I ??viewed the images and agree with the above interpretation. Thank you for allowing us to participate in the care of JESSICA GTZ. Please do not hesitate to call if you have any questions. ?Celine Anna MD Electronically Signed Final Report ?? 12/07/2010 03:27 pm Film and interpretation reviewed by the attending Procedure Note Celine Anna MD - 12/07/2010 Adult Renal Report (Signed Final 12/07/2010 03:27 pm) Patient Info ID: [id number] : [birth year] (45 yrs) Name: JESSICA GTZ Visit Date: 12/07/2010 03:16 pm Procedures URETRO - Retroperitoneal Complete - [id number] Indications ? Stones ? Hydronephrosis ------- History ------- S/P Uretroscopy Right Kidney Size (cm) L: 10.7 Cortical Thickness: Normal Cortical Echogenicity: Normal Hydronephrosis: No sonographic evidence Left Kidney Size (cm) L: 10.7 Cortical Thickness: Normal Cortical Echogenicity: Normal Hydronephrosis: No sonographic evidence Comment: No evidence for echogenic stones or pelviecaliectasis. Urinary Bladder Pre-void (cm) L: 6.5 AP: 4.6 TV: 10.2 Vol (ml): 159.7 Comment: Partially distended, normal contour. Bilateral ureteral jets demonstrated. Impression Ultrasound - Retroperitoneal Complete - Summary Normal renal ultrasound. No stones identified. I viewed the images and agree with the above interpretation. Thank you for allowing us to participate in the care of JESSICA GTZ. Please do not hesitate to call if you have any questions. Celine Anna MD Electronically Signed Final Report 12/07/2010 03:27 pm Film and interpretation reviewed by the attending Luis Michael Jr., MD IMG US GEN ORDERAB LES documented in this encounter Visit Diagnoses Not on filedocumented in this encounter Care Teams Socially Responsible Investment Adviser Relationship Specialty Start Date End Date Monica Garcia MD [address] [place] [address] PCP - General 07/18/10 03/05/12 documented as of this encounter
--- OUTSIDE RECORDS SUMMARY | 2024-07-20 18:33 | XMS_ITS | Encounter Summary ---
Author Organization [facility] Address [address] [place] [address] Care Team Providers Care Chimney Sweeper Name Role Phone Unavailable Primary Care Provider Unavailabl e Encounter Details Date Type Department Care Team (Late st Contact Info) Description 08/24/2003 Before PRISM Converted Visit (Maple) [facility] - Maple conversion [address] [place] [address] Kristal Carroll, [facility] [address] [place] [address] Social History Tobacco Use Types Packs/Day Years Used Date Smoking Tobacco: Never Assessed Comments Unknown Sex and Gender Information Value Date Recorded Sex Assigned at Not on file Legal Sex Female 18:02 EST Gender Identity Not on file Sexual Orientation Not on file documented as of this encounter Plan of Treatment Not on file documented as of this encounter Procedures Procedure Name Priority Date/Time Associated Diagnosis Comments CYTOPATHOLOGY Routine 08/24/2003 0:00 EST documented in this encounter Results * CYTOPATHOLOGY (08/24/2003 0:00 EST) Pathology Report: CYTOPATHOLOGY REPORT Reports generated via electronic interface contain original data; however they are lacking the format of the original report. Caution should be taken when reading/interpreti ng unformatted reports. Name: ? JESSICA GTZ WRN ? Accession #: ? [id number] : ? 1965 (Age: 38) ??F ?Collect Date: ? 08/24/2003 Location: ? [facility] ? Receive Date: ? 08/27/2003 Provider: ?KRISTAL CARROLL SOCK TURNER Copy to: ? Specimen/Source: ?Conventional Pap Test, Cervix/Endocervix Last Menstrual Period: ? 08/15/03 ? SPECIMEN ADEQUACY ? Satisfactory for Evaluation - transformation zone component present GENERAL CATEGORIZATION ? Negative for Intraepithelial Lesion or Malignancy ? Document reviewed and electronically signed by: ? Suzie Fournier, SCT(ASCP) ? Report Date: ??09/02/2003 17:16 End of Report [facility] 08/24/2003 08/27/2003 us Kristal Carroll SOCK TURNER PATHOLOGY ORDERABLES Final R esult [facility] [address] [place] [address] documented in this encounter Visit Diagnoses Not on filedocumented in this encounter
--- OUTSIDE RECORDS SUMMARY | 2024-07-20 18:33 | XMS_ITS | Encounter Summary ---
Author Organization Counts Include [facility] Address [facility] [place] [address] Care Team Providers Care Rock Crusher Operator Name Role Phone Monica Garcia MD Primary Care Provider [phone] Reason for Visit * Reason Comments Gynecologic Exam Encounter Details Date Type Department Care Team (Late st Contact Info) Description 12/07/2010 2:00 PM EDT Office Visit Obstetrics [place] [address] Bobby Diamond MD [facility] DR OBSTETRICS & [place] [address] Routine check-up; Perimenopause Discharge Disposition: Home Social History Tobacco Use [...] this encounter Patient Instructions * Patient Instructions* Catalina Maldonado - 12/07/2010 4:36 PM EDT 1. [...] 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 documented in this encounter Progress Notes * Catalina Maldonado - 12/07/2010 4:07 PM EDT Subjective: Patient ID: Stacy Albrgiht is a 45 y.o. female. JASPREET Kumar is a 45 y.o. 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 She continues to use Climara-Pro and states that she likes it but has started to have some vaginal dryness which she notices with intercourse and has also noticed that her hair is falling out. She continues to have fairly regular, monthly menses. She is occasionally a couple of weeks late every 3-4cycles and states that her menses during these cycles are heavier (changing a pad/tampon every 2hrs) and more painful (helped by Midol and tylenol). Her menses last for 7 days. She denies having to get up at night to change her pad in order to avoid an accident. She denies any intermenstrual bleeding. She is currently sexually active with her . They rely on her 's vasectomy for contraception. She does note that her vaginal dryness can cause some discomfort with intercourse and does not currently use any form of lubrication. No post-coital spotting. No history of STIs. Last pap in 07/2009 was normal. She has a remote history of an abnormal pap smear as a teenager that she received cryotherapy for but denies any other [...] consider the Estring if her symptoms of vaginal dryness worsen. 2. Health maintenance: Check TSH given positive findings on review of systems. Will also check cholesterol. Mammogram performed today. Last pap smear in 07/2009 so not due for another 6-18 months. DEXA scan. 3. Encouraged patient to visit websites that will help her assess her risk of developing cardiovascular disease, breast cancer and 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 documented in this encounter Plan of Treatment Upcoming Encounters Date Type Department Care Team (Late st Contact Info) Description 08/07/2024 3:30 PM EST Office [place] [address] Tarik Henry MD [facility] DR ORTHOP[place]EDIC [place] [address] 09/22/2024 7:00 AM EST [place] [address] Luis Michael Jr., MD [facility] [place] [address] 09/22/2024 8:00 AM EST Office Visit Urology at [place] [phone] Luis Michael Jr., MD [facility] [place] [address] documented as of this encounter Visit Diagnoses Diagnosis Routine check-up Routine general medical examination at a health care facility Perimenopause Symptomatic menopausal or female climacteric states documented in this encounter Care Teams Rock Crusher Operator Relationship Specialty Start Date End Date Monica Garcia MD [address] [place] [address] PCP - General 07/18/10 03/05/12 documented as of this encounter
--- OUTSIDE RECORDS SUMMARY | 2024-07-20 18:33 | XMS_ITS | Encounter Summary ---
Author Organization [facility] Address [address] [place] [address] Care Team Providers Care Storage Manager Name Role Phone Unavailable Primary Care Provider Unavailabl e Encounter Details Date Type Department Care Team (Late st Contact Info) Description 01/31/2007 Results Only [facility] - Maple conversion [address] [place] [address] Manish Couch MD [address] [facility] [address] [place] [address] Social History Tobacco Use Types Packs/Day Years [...] Priority Date/Time Associated Diagnosis Comments CYTOPATHOLOGY Routine 01/31/2007 0:00 EDT documented in this encounter Results * CYTOPATHOLOGY (01/31/2007 0:00 EDT) Pathology Report: CYTOPATHOLOGY REPORT Reports generated via electronic interface contain original data; however they are lacking the format of the original report. Caution should be taken when reading/interpreti ng unformatted reports. Name: ? JESSICA GTZ WRN ? Accession #: ? [id number] : ? 1965 (Age: 41) ??F ?Collect Date: ? 01/31/2007 Location: ? [facility] ? Receive Date: ? 02/03/2007 Provider: ?MANISH COUCH MD Copy to: ? Specimen/Source: ?ThinPrep Pap Test, Cervix/Endocervix, processed on The Flipping Pro'sPrep Imaging System, with manual evaluation Last Menstrual Period: ? 01.20.07 Treatment History: ? Chemotherapy ? SPECIMEN ADEQUACY ? Satisfactory for Evaluation - transformation zone component present GENERAL CATEGORIZATION ? Negative for Intraepithelial Lesion or Malignancy ? Document reviewed and electronically signed by: ? AVI Ackerman(ASCP) ? Report Date: ??02/05/2007 13:09 End of Report [facility] 01/31/2007 02/03/2007 us Manish Couch MD PATHOLOGY ORDERABLES Final Resu lt [facility] [address] [place] [address] documented in this encounter Visit Diagnoses Not on filedocumented in this encounter
--- OUTSIDE RECORDS SUMMARY | 2024-07-20 18:33 | XMS_ITS | Encounter Summary ---
Author Organization [facility] Address [address] [place] [address] Care Team Providers Care Marketing Compliance Manager Name Role Phone Unavailable Primary Care Provider Unavailabl e Encounter Details Date Type Department Care Team (Late st Contact Info) Description 01/15/2006 Results Only [facility] - Maple conversion [address] [place] [address] Kristal Carroll, [facility] [address] [facility] [place] [address] Social History Tobacco Use Types [...] Priority Date/Time Associated Diagnosis Comments CYTOPATHOLOGY Routine 01/15/2006 0:00 EDT documented in this encounter Results * CYTOPATHOLOGY (01/15/2006 0:00 EDT) Pathology Report: CYTOPATHOLOGY REPORT Reports generated via electronic interface contain original data; however they are lacking the format of the original report. Caution should be taken when reading/interpreti ng unformatted reports. Name: ? JESSICA GTZ WRN ? Accession #: ? [id number] : ? 1965 (Age: 40) ??F ?Collect Date: ? 01/15/2006 Location: ? [facility] ? Receive Date: ? 01/17/2006 Provider: ?KRISTAL CARROLL [employer] TEACHER Copy to: ? Specimen/Source: ?Conventional Pap Test, Cervix/Endocervix Last Menstrual Period: ? 5./06/02 Previous Gynecologic Pathology: ? ASC-US: 1994 Paps neg. since ? SPECIMEN ADEQUACY ? Satisfactory for Evaluation - transformation zone component present GENERAL CATEGORIZATION ? Negative for Intraepithelial Lesion or Malignancy ? Document reviewed and electronically signed by: ? Suzie Fournier, SCT(ASCP) ? Report Date: ??01/23/2006 12:03 End of Report ARIELLE HECTOR 01/15/2006 01/17/2006 us Kristal Carroll [employer] TEACHER PATHOLOGY ORDERABLES Final R esult ARIELLE HECTOR [address] [place] [address] documented in this encounter Visit Diagnoses Not on filedocumented in this encounter
--- OUTSIDE RECORDS SUMMARY | 2024-07-20 18:33 | XMS_ITS | Encounter Summary ---
Author Organization [facility] [place] [address] Care Team Providers Care Sorority Mother Name Role Phone Monica Garcia MD Primary Care Provider Encounter Details Date Type Department Care Team (Late st Contact Info) Description 12/07/2010 3:00 PM EDT Procedure visit [address] [address] Social History Tobacco Use Types Packs/Day Years [...] 3:30 PM EST Office [place] [phone] Tarik Henry MD [facility] [address] 09/22/2024 7:00 AM EST [place] [phone] Luis Michael Jr., MD [facility] [place] [address] 09/22/2024 8:00 AM EST [place] [address] Luis Michael Jr., MD [facility] [place] [address] documented as of this encounter Visit Diagnoses Not on filedocumented in this encounter Care Teams Sorority Mother Relationship Specialty Start Date End Date Moniac Garcia MD [address] [place] [address] PCP - General 07/18/10 03/05/12 documented as of this encounter
--- OUTSIDE RECORDS SUMMARY | 2024-07-20 18:33 | XMS_ITS | Encounter Summary ---
Author Organization [facility] Address [address] [place] [address] Care Team Providers Care Attendant Arcade Name Role Phone Unavailable Primary Care Provider Unavailabl e Encounter Details Date Type Department Care Team (Late st Contact Info) Description 12/11/2004 Results Only [facility] - Maple conversion [address] [place] [address] Kristal Carroll, [facility] [address] [facility] [address] Social History Tobacco Use Types [...] Priority Date/Time Associated Diagnosis Comments CYTOPATHOLOGY Routine 12/11/2004 0:00 EDT documented in this encounter Results * CYTOPATHOLOGY (12/11/2004 0:00 EDT) Pathology Report: CYTOPATHOLOGY REPORT Reports generated via electronic interface contain original data; however they are lacking the format of the original report. Caution should be taken when reading/interpreti ng unformatted reports. Name: ? JESSICA GTZ WRN ? Accession #: ? [id number] : ? 1965 (Age: 39) ??F ?Collect Date: ? 12/11/2004 Location: ? [facility] ? Receive Date: ? 12/13/2004 Provider: ?KRISTAL CARROLL SCREENING UNIT REGISTERED NURSE Copy to: ? Specimen/Source: ?Conventional Pap Test, Cervix/Endocervix Last Menstrual Period: ? 11/29/04 Previous Gynecologic Pathology: ? ASC-US: 1994, paps negative since ? SPECIMEN ADEQUACY ? Satisfactory for Evaluation - transformation zone component present GENERAL CATEGORIZATION ? Negative for Intraepithelial Lesion or Malignancy ? Document reviewed and electronically signed by: ? AVI Mcclendon(ASCP) ? Report Date: ??12/20/2004 09:49 End of Report ARIELLE HECTOR 12/11/2004 12/13/2004 us Kristal Carroll SCREENING UNIT REGISTERED NURSE PATHOLOGY ORDERABLES Final R esult ARIELLE HECTOR [address] [place] [address] documented in this encounter Visit Diagnoses Not on filedocumented in this encounter
--- OUTSIDE RECORDS SUMMARY | 2024-07-20 18:33 | XMS_ITS | Encounter Summary ---
Author Organization [facility] [place] [address] Care Team Providers Care Search Engine Optimization Specialist Name Role Phone Monica Garcia MD Primary Care Provider [phone] Encounter Details Date Type Department Care Team (Late st Contact Info) Description 07/25/2010 [place] [phone] Ferdinand Michael Jr., MD [facility] [place] [address] Social History Tobacco Use Types Packs/Day Years Used Date Smoking Tobacco: Never Assessed Sex and Gender Information Value Date Recorded Sex Assigned at Female 01/29/2022 12:45 PM EDT Gender Identity Female 03/23/2024 9:08 AM EDT Sexual Orientation Straight 03/23/2024 9: 08 AM EDT documented as of this encounter Plan of Treatment Upcoming Encounters Date Type Department Care Team (Late st Contact Info) Description 08/07/2024 3:30 PM EST Office [place] [address] Tarik Henry MD [facility] [place] [address] 09/22/2024 7:00 AM EST [place] [address] Ferdinand Michael Jr., MD [facility] [place] [address] 09/22/2024 8:00 AM EST Office Visit Urology at [facility] [place] [address] Ferdinand Michael Jr., MD [facility] [place] [address] documented as of this encounter Procedures Procedure Name Priority Date/Time Associated Diagnosis Comments URINE CULTURE Routine 07/25/2010 5:00 PM EST documented in this encounter Results * URINE CULTURE (07/25/2010 5:00 PM EST) Urine Culture ? Patient Name: JESSICA GTZ ? Ordered By: FERDINAND MICHAEL JR ? MR#: [id number] ?LOC: ??5B ? /Sex: ?? 3 (44 years), ? Female ? PROCEDURE: Urine Culture ?SOURCE: T CC ? COLLECTED: 07/25/2010 17:00 ? STARTED: 07/25/2010 18:01 ? FINAL REPORT ? Final Report ? Verified: 15:08 ? No growth (Less than 1,000 cfu/ml). ? ____ KYRA SELFENNIUM Urine specimen obtained by clean catch procedure (specimen) 07/25/2010 5:00 PM EST 07/25/2010 5:54 PM EST Ferdinand Michael Jr., MD MICROBIOLOGY - GEN ERAL ORDERABLES KYRA QUAN documented in this encounter Visit Diagnoses Not on filedocumented in this encounter Care Teams Search Engine Optimization Specialist Relationship Specialty Start Date End Date Monica Garcia MD [address] [place] [address] PCP - General 07/18/10 03/05/12 documented as of this encounter
--- OUTSIDE RECORDS SUMMARY | 2024-07-20 18:33 | XMS_ITS | Encounter Summary ---
Author Organization [facility] Address [address] [place] [address] Care Team Providers Care Charter Representative Name Role Phone Unknown, Provider Primary Care Provider Unava ilable Encounter Details Date Type Department Care Team (Late st Contact Info) Description 08/15/2015 Results Only [facility] [phone] Suzie Shannon, [facility] [address] [place] [address] Social History Tobacco Use Types Packs/Day [...] Procedure Name Priority Date/Time Associated Diagnosis Comments PAP TEST- RESULT ONLY Routine 08/15/2015 0:00 EST documented in this encounter Results * PAP TEST- RESULT ONLY (08/15/2015 0:00 EST) Pathology Report: CYTOPATHOLOGY REPORT Reports generated via electronic interface contain original data; however they are lacking the format of the original report. Caution should be taken when reading/interpreti ng unformatted reports. Name: ? JESSICA GTZ ? Accession #: ? [id number] : ? 1965 (Age: 50) ??F ?Collect Date: ? 08/15/2015 Location: ? [facility] ? Receive Date: ? 08/17/2015 Provider: ?SUZIE SHANNON TILE APPLICATOR Copy to: ?AVERY EARLY CHIEF SUSTAINABILITY OFFICER ? Specimen/Source: ?Pap Test, Cervix/Endocervix, ThinPrep Imaging System with manual evaluation Last Menstrual Period: ? 2 Weeks ago Hormonal/Contracep tive Status: ? Estrogen: Patch Progesterone: tabs Previous Gynecologic Pathology: ? Yes: age 17 hx of abn pap Treatment History: ? Cryotherapy: no further abn paps ? SPECIMEN ADEQUACY ? Satisfactory for Evaluation - transformation zone component present GENERAL CATEGORIZATION ? Negative for Intraepithelial Lesion or Malignancy ? Document reviewed and electronically signed by: ? Selena Ron, AVI(ASCP) ? Report Date: ??08/23/2015 09:34 End of Report [facility] 08/15/2015 08/17/2015 us Suzie Shannon TILE APPLICATOR PATHOLOGY ORDERABLES Final Resu lt [facility] [address] [place] [address] documented in this encounter Visit Diagnoses Not on filedocumented in this encounter Care Teams Charter Representative Relationship Specialty Start Date End Date Unknown, Provider, PCP - General 07/04/15 documented as of this encounter
--- OUTSIDE RECORDS SUMMARY | 2024-07-20 18:33 | XMS_ITS | Encounter Summary ---
Author Organization [facility] [place] [address] Care Team Providers Care Shot Fireman Name Role Phone Monica Garcia MD Primary Care Provider [phone] Encounter Details Date Type Department Care Team (Late st Contact Info) Description 12/07/2010 Orders Only Obstetrics [place] [phone] Lucy Germain APRN [facility] [place] [address] Social History Tobacco Use Types Packs/Day Years [...] 3:30 PM EST [place] [phone] Tarik Henry MD [facility] [place] [address] 09/22/2024 7:00 AM EST [place] [phone] Luis Michael Jr., MD [facility] [place] [address] 09/22/2024 8:00 AM EST [place] [phone] Luis Michael Jr., MD [facility] [place] [address] documented as of this encounter Procedures Procedure Name Priority Date/Time Associated Diagnosis Comments MAMMO SCREENING CAD BILATERAL Routine 12/07/2010 1:47 PM EDT documented in this encounter Results * MAMMO DIGITAL BILATERAL SCREENING WITH CAD (12/07/2010 1:47 PM EDT) Anatomical Region Laterality Modality Breast Bilateral Mammography 12/07/2010 1:47 PM EDT Narrative 12/08/2010 10:58 AM EDT Reason for Exam: Screening ?? Technique: Craniocaudal (CC) and Medio-lateral Oblique (MLO) views of both breasts obtained with direct digital capture. The exam was evaluated by CAD version 8.3.17. ?? Findings: ?? This is a negative mammogram (ACR Category 1). ??There is a stable fibroglandular pattern without significant change from prior studies. There is no mammographic evidence of cancer. ??The breasts are extremely dense which greatly limits mammographic sensitivity for the detection of malignancy. ?? CONCLUSION: This is a NEGATIVE mammogram (ACR Category 1). ?? Routine screening mammography is recommended with the frequency dependent upon the patient's age and breast cancer risk factors. A letter has been sent to this patient by the breast imaging center. Procedure Note Lucy Decker MD - 12/08/2010 Reason for Exam: Screening Technique: Craniocaudal (CC) and Medio-lateral Oblique (MLO) views of both breasts obtained with direct digital capture. The exam was evaluated by CAD version 8.3.17. Findings: This is a negative mammogram (ACR Category 1). There is a stable fibroglandular pattern without significant change from prior studies. There is no mammographic evidence of cancer. The breasts are extremelydense which greatly limits mammographic sensitivity for the detection ofmalignancy. CONCLUSION: This is a NEGATIVE mammogram (ACR Category 1). Routine screening mammography is recommended with the frequency dependentupon the patient's age and breast cancer risk factors. A letter has been sent to this patient by the breast imaging center. Lucy Germain APRN IMG MAMMO ORDERABL ES documented in this encounter Visit Diagnoses Not on filedocumented in this encounter Care Teams Shot Fireman Relationship Specialty Start Date End Date Monica Garcia MD [address] [place] [address] PCP - General 07/18/10 03/05/12 documented as of this encounter
--- OUTSIDE RECORDS SUMMARY | 2024-07-20 18:33 | XMS_ITS | Referral Summary ---
Author Organization [facility] Address [address] [place] [address] Care Team Providers Care Aircraft Engine Cylinder Mechanic Name Role Phone Unknown, Provider Primary Care Provider Unava ilable Social History Tobacco Use Types Packs/Day Years Used Date Smoking Tobacco: Never Assessed Comments Unknown Sex and Gender Information Value Date Recorded Sex Assigned at Not on file Legal Sex Female 18:02 EST Gender Identity Not on file Sexual Orientation Not on file Plan of Treatment Not on file Care Teams Aircraft Engine Cylinder Mechanic Relationship Specialty Start Date End Date Unknown, Provider, PCP - General 07/04/15
--- OUTSIDE RECORDS SUMMARY | 2024-07-20 18:33 | XMS_ITS | Encounter Summary ---
Author Organization [facility] [place] [address] Care Team Providers Care Statistics Intern Name Role Phone Monica Garcia MD Primary Care Provider [phone] Encounter Details Date Type Department Care Team (Latest Contact Info) Description 08/24/2010 1:54 PM EST - 08/24/2010 8:20 PM [facility] Hospital Encounter [place] [address] Ferdinand Michael Jr., MD [facility] [place] [address] Discharge Disposition: Home Social History Tobacco Use [...] Start Date End Date albuterol (ACCUNEB) 0.63 mg/3 mL nebulizer solution 08/24/2010 CIS Free Text Med - Multiple Vitamin 08/24/2010 12/07/2010 fexofenadine (JEREL) 60 mg tablet 08/24/2010 12/07/2010 SERTRALINE HCL (SERTRALINE ORAL) 08/24/2010 03/31/2013 azelastine (ASTELIN) 137 mcg nasal spray 08/24/2010 07/25/2011 Evening [place] Oil 500 mg Cap 08/24/2010 01/24/2015 predniSONE (DELTASONE) 20 mg tablet 08/24/2010 12/07/2010 FOLIC ACID/VITAMIN B COMP W-C (B-COMPLEX WITH VITAMIN C ORAL) 08/24/2010 04/10/2016 SUMATRIPTAN SUCCINATE (IMITREX ORAL) 08/24/2010 05/01/2016 tacrolimus (PROTOPIC) 0.1 % ointment 1 Appl(s) Top Twice daily 08/24/2010 02/12/2022 ERGOCALCIFEROL, VITAMIN D2, (VITAMIN D ORAL) 08/24/2010 016 MELATONIN ORAL 08/24/2010 12/07/2010 KETOCONAZOLE (NIZORAL TOP) Apply topically. 08/24/2010 02/12/2022 amoxicillin (AMOXIL) 875 mg tablet 08/24/2010 12/07/2010 BUDESONIDE/FORMOTEROL FUMARATE (SYMBICORT INHL) 08/24/2010 ciprofloxacin (CIPRO) 500 mg tablet 500 MG = 1 Tablet(s), PO, Q12H 08/24/2010 12/07/2010 documented as of this encounter Plan of Treatment Upcoming Encounters Date Type Department Care Team (Late st Contact Info) Description 08/07/2024 3:30 PM EST Office [place] [phone] Tarik Henry MD [facility] [place] [address] 09/22/2024 7:00 AM EST [place] [phone] Ferdinand Michael Jr., MD [facility] [place] [address] 09/22/2024 8:00 AM EST [place] [phone] Ferdinand Michael Jr., MD [facility] [place] [address] documented as of this encounter Procedures Procedure Name Priority Date/Time Associated Diagnosis Comments SURGICAL PATHOLOGY REPORT Routine 08/24/2010 6:40 PM EST documented in this encounter Results * PATHOLOGY SURGICAL PATHOLOGY FINAL REPORT (08/24/2010 6:40 PM EST) Surgical Pathology Report ? [facility] ? Provider: ?? FERDINAND MICHAEL JR ?? Pt. Name: ?? JESSICA GTZ ? Acc #: ?[id number] ?Pt. ? Col Date: ?? 08/24/2010 ?/Sex: ?1965,(45 ? years),Female ? Rec Date: ?? 08/24/2010 ?LOC: ?SDP ? SURGICAL PATHOLOGY ? ---Pathologic Diagnosis--- ? Calculi, renal (see Comment). ? CR-0 ? 09/18/10 ? BJM ? 09/19/10 Verified by: ? Jose Antonio Lyons MD ? Pathologist ? (Electronic Signature) ? The attending pathologist whose signature appears on this report has ? reviewed all diagnostic slides and has edited the gross and/or ? microscopic portion of the report in rendering the final pathologic ? diagnosis. ? ---Comment--- ? The Report of Stone Analysis, order # [id number], has been received from the ? [facility], [address], [place], [place] ??[address]. ? For the full text of the [place] report please refer to Non-DH Documentation ? Pathology in the Clinical Information System (CIS). ? ---Microscopic Description--- ? Slides reviewed, microscopic description not recorded. ? ---Gross Description--- ? Labeled/Fixative: ? Left renal stone, fresh. ? Quantity/Size: ?Two, 0.1 cm and 0.3 cm. ? Tissue Description: ?? Irregular, brown calculi. ? Sections/Process: ? Submitted for chemical analysis. ??aje/SNS ? ---Clinical Information--- ? Specimen Submitted: ? A - Left renal stone, left ? Clinical History: ? Left renal stone ? Clinical Diagnosis: ? Same KYRA QUAN 08/24/2010 6:40 PM EST Ferdinand Michael Jr., MD PATHOLOGY/CYTOLOGY ORDERABLES Performing Organization Address City/State/[facility] Co de Phone Number KYRA QUAN documented in this encounter Visit Diagnoses Not on filedocumented in this encounter Care Teams Statistics Intern Relationship Specialty Start Date End Date Monica Garcia MD [address] [place] [address] PCP - General 07/18/10 03/05/12 documented as of this encounter
--- OUTSIDE RECORDS SUMMARY | 2024-07-20 18:33 | XMS_ITS | Encounter Summary ---
Author Organization [facility] [place] [address] Care Team Providers Care Manager Sap Name Role Phone Monica Garcia MD Primary Care Provider [phone] Encounter Details Date Type Department Care Team (Late st Contact Info) Description 07/26/2010 10:00 AM [place] [address] Sarah Kidd MD [facility] [address] [address] Discharge Disposition: Home Social History Tobacco Use [...] 3:30 PM EST Office [place] [phone] Tarik Henry MD [facility] [place] [address] 09/22/2024 7:00 AM EST Appointment [place] [address] Luis Michael Jr., MD [facility] [place] [address] 09/22/2024 8:00 AM EST Office [place] [address] Luis Michael Jr., MD [facility] [place] [address] documented as of this encounter Visit Diagnoses Not on filedocumented in this encounter Care Teams Manager Sap Relationship Specialty Start Date End Date Monica Garcia MD [address] [place] [address] PCP - General 07/18/10 03/05/12 documented as of this encounter
--- OUTSIDE RECORDS SUMMARY | 2024-07-20 18:33 | XMS_ITS | Encounter Summary ---
Author Organization [facility] Address [address] [place] [address] Care Team Providers Care Tooth Polisher Name Role Phone Unavailable Primary Care Provider Unavailabl e Encounter Details Date Type Department Care Team (Late st Contact Info) Description 07/18/2001 Before PRISM Converted Visit (Maple) [facility] - Maple conversion [address] [place] [address] Kristal Carroll, [facility] [address] [place] [address] Social History Tobacco Use Types [...] Priority Date/Time Associated Diagnosis Comments CYTOPATHOLOGY Routine 07/18/2001 0:00 EST documented in this encounter Results * CYTOPATHOLOGY (07/18/2001 0:00 EST) Pathology Report: CYTOPATHOLOGY REPORT Reports generated via electronic interface contain original data; however they are lacking the format of the original report. Caution should be taken when reading/interpreti ng unformatted reports. Name: ? JESSICA GTZ WRN ? Accession #: ? [id number] : ? 1965 (Age: 35) ??F ?Collect Date: ? 07/18/2001 Location: ? [facility] ? Receive Date: ? 07/22/2001 Provider: ?KRISTAL CARROLL [facility]AMPAR[facility] NET Copy to: ? Specimen/Source: ?Conventional Pap Test, Cervix/Endocervix Last Menstrual Period: ? Hormonal/Contracep tive Status: ? Depo-Provera ? SPECIMEN ADEQUACY ? Satisfactory for evaluation. GENERAL CATEGORIZATION ? Within Normal Limits ? Document reviewed and electronically signed by: ? Suzie Fournier, SCT(ASCP) ? Report Date: ??07/25/2001 13:22 End of Report ARIELLE HECTOR 07/18/2001 07/22/2001 us Kristal Carroll [facility] LAMPAR[facility] NET PATHOLOGY ORDERABLES Final R esult [facility] [address] [place] [address] documented in this encounter Visit Diagnoses Not on filedocumented in this encounter
--- OUTSIDE RECORDS SUMMARY | 2024-07-20 18:33 | XMS_ITS | Encounter Summary ---
Author Organization [facility] [place] [address] Care Team Providers Care Respooler Name Role Phone Monica Garcia MD Primary Care Provider [phone] Encounter Details Date Type Department Care Team (Late st Contact Info) Description 12/07/2010 1:30 PM EDT Office Visit Lab [address] [place] [address] Social History Tobacco Use Types Packs/Day Years [...] 3:30 PM EST Office [place] [phone] Tarik Henry MD [facility] [place] [address] 09/22/2024 7:00 AM EST [place] [address] Luis Michael Jr., MD [facility] [place] [address] 09/22/2024 8:00 AM EST [place] [address] Luis Michael Jr., MD [facility] [place] [address] documented as of this encounter Visit Diagnoses Not on filedocumented in this encounter Care Teams Respooler Relationship Specialty Start Date End Date Monica Garcia MD [address] [place] [address] PCP - General 07/18/10 03/05/12 documented as of this encounter
--- OUTSIDE RECORDS SUMMARY | 2024-07-20 18:33 | XMS_ITS | Encounter Summary ---
Author Organization [facility] Address [address] [place] [address] Care Team Providers Care Ship'S Engineer Name Role Phone Unavailable Primary Care Provider Unavailabl e Encounter Details Date Type Department Care Team (Late st Contact Info) Description 07/10/2000 Before PRISM Converted Visit (Maple) [facility] - Maple conversion [address] [place] [address] Kristal Carroll, [facility] [address] [place] [address] Social History Tobacco Use Types [...] Priority Date/Time Associated Diagnosis Comments CYTOPATHOLOGY Routine 07/10/2000 0:00 EST documented in this encounter Results * CYTOPATHOLOGY (07/10/2000 0:00 EST) Pathology Report: CYTOPATHOLOGY REPORT Reports generated via electronic interface contain original data; however they are lacking the format of the original report. Caution should be taken when reading/interpreti ng unformatted reports. Name: ? JESSICA GTZ WRN ? Accession #: ? [id number] : ? 1965 (Age: 34) ??F ?Collect Date: ? 07/10/2000 Location: ? [facility] ? Receive Date: ? 07/11/2000 Provider: ?KRISTAL CARROLL ACCOUNT MANAGER Copy to: ? Specimen/Source: ?ThinPrep Pap Test, Cervix/Endocervix Last Menstrual Period: ? Hormonal/Contracep tive Status: ? Depo-Provera ? SPECIMEN ADEQUACY ? Satisfactory for evaluation. GENERAL CATEGORIZATION ? Within Normal Limits ? Document reviewed and electronically signed by: ? AVI Ackerman(ASCP) ? Report Date: ??07/19/2000 13:38 End of Report [facility] 07/10/2000 07/11/2000 us Kritsal Carroll ACCOUNT MANAGER PATHOLOGY ORDERABLES Final R esult [facility] [address] [place] [address] documented in this encounter Visit Diagnoses Not on filedocumented in this encounter
--- OUTSIDE RECORDS SUMMARY | 2024-07-20 18:33 | XMS_ITS | Encounter Summary ---
Author Organization [facility] [place] [address] Care Team Providers Care Market Garden Worker Name Role Phone Janet Davey APRN Primary Care Provider [phone] Encounter Details Date Type Department Care Team (Late st Contact Info) Description 08/24/2010 [place] [phone] Luis Michael Jr., MD [facility] [place] [address] Social History Tobacco Use Types Packs/Day Years Used Date Smoking Tobacco: Never Assessed [facility] Inpatient Questions Answer [...] 3:30 PM EST Office [place] [address] Tarik Henry MD [facility] [place] [address] 09/22/2024 7:00 AM EST Appointment Ultrasound at [place] [phone] Luis Michael Jr., MD [facility] [place] [address] 09/22/2024 8:00 AM EST [place] [address] Luis Michael Jr., MD [facility] [place] [address] documented as of this encounter Procedures Procedure Name Priority Date/Time Associated Diagnosis Comments SURGICAL PATHOLOGY REPORT Routine 08/24/2010 6:40 PM EST documented in this encounter Results * Surgical Pathology Report (08/24/2010 6:40 PM EST) Surgical Pathology Report [id number] ? Location: [facility] The signing pathologist has (i) examined the relevant preparation(s) for the specimen(s) and (ii) rendered or confirmed the diagnosis(es). . ?Pathology Surgical Pathology Final Report Clinical Information Specimen Submitted: A - Left renal stone, left Clinical History: Left renal stone Clinical Diagnosis: Same Gross Description Labeled/Fixative: ? Left renal stone, fresh. Quantity/Size: ?Two, 0.1 cm and 0.3 cm. Tissue Description: ?? Irregular, brown calculi. Sections/Process: ? Submitted for chemical analysis. ??aje/SNS Microscopic Description Slides reviewed, microscopic description not recorded. Diagnosis Calculi, renal (see Comment). CR-0 09/18/10 BJM 09/19/10 Verified by: ? Eloy GILL, Jose Antonio Rojas ?Pathologist ?(Electronic Signature) The attending pathologist whose signature appears on this report has reviewed all diagnostic slides and has edited the gross and/or microscopic portion of the report in rendering the final pathologic diagnosis. Comment The Report of Stone Analysis, order # [id number], has been received from the [facility] [employer], [address], [place], [place] ??[address]. For the full text of the [place] report please refer to Non- Documentation Pathology in the Clinical Information System (CIS). KYRA ARAMISASHA 08/24/2010 6:40 PM EST Luis Michael Jr., MD PATHOLOGY/CYTOLOGY ORDERABLES Performing Organization Address City/State/[facility] [place] Phone Number [facility] documented in this encounter Visit Diagnoses Not on filedocumented in this encounter Care Teams Market Garden Worker Relationship Specialty Start Date End Date Janet Davey, ADMINISTRATOR SOCIAL WELFARE PCP - General Family Medicine 07/13/20 02/10/24 documented as of this encounter
--- OUTSIDE RECORDS SUMMARY | 2024-07-20 18:33 | XMS_ITS | Clinical Summary ---
Author Organization [facility] Address [address] [place] [address] Care Team Providers Care Marketing Instructor Name Role Phone Unknown, Provider MD Primary Care Provider Unava ilable Social History Tobacco Use Types Packs/Day Years Used Date Smoking Tobacco: Never Assessed Comments Unknown Sex and Gender Information Value Date Recorded Sex Assigned at Not on file Legal Sex Female 18:02 EST Gender Identity Not on file Sexual Orientation Not on file Plan of Treatment Health Maintenance Due Date Last Done Comments Hepatitis C Screen 1965 COVID-19 Vaccine ( season) 2024 RSV Immunization ( o r 60+ Years) (1 - 1-dose 75+ series) 2038 Care Teams Marketing Instructor Relationship Specialty Start Date End Date Unknown, Provider, PCP - General 07/04/15
--- OUTSIDE RECORDS SUMMARY | 2024-07-20 18:33 | XMS_ITS | Encounter Summary ---
Author Organization [facility] Address [address] [place] [address] Care Team Providers Care Nat Instructor Name Role Phone Unknown, Provider Primary Care Provider Unava ilable Encounter Details Date Type Department Care Team (Late st Contact Info) Description 01/05/2022 Lab Requisition [facility] Pathology & Laboratory Medicine - [facility] [address] [place], [place] [id number] Outr Resulting Lab, Provider Social History Tobacco Use Types Packs/Day [...] Procedure Name Priority Date/Time Associated Diagnosis Comments CALCIUM, URINE 24HR Routine 01/04/2022 1 5:51 EDT documented in this encounter Results * (ABNORMAL) CALCIUM, URINE 24HR (01/04/2022 15:51 EDT) Calcium, Urine 10.0 See Note mg/dL 01/06/2022 8:09 T [facility] Comment: NOTE: Reference range not established Calcium, Urine 24 hr 330(H) 100 - 300 mg/24hrs 01/06/2022 8:09 EDT [facility] Comment:Reference range assu mes a normal daily intake of calcium between 600 - 800 mg/day. Urine Volume 3,300 mL 01/06/2022 8:09 EDT [facility] Urine Collection Period 24.0 Hours 01/06/2022 8:09 EDT [facility] Urine 24 HOUR URINE SPECIMEN / Unknown 01/04/2022 15:51 EDT 01/05/2022 17:17 EDT us Provider Outr Resulting Lab URINALYSIS ORDERABLE S Final Result Performing Organization Address City/State/[facility] Co de Phone Number [facility] [address] [place] [address] documented in this encounter Visit Diagnoses Not on filedocumented in this encounter Care Teams Nat Instructor Relationship Specialty Start Date End Date Unknown, Provider, PCP - General 07/04/15 documented as of this encounter
--- OUTSIDE RECORDS SUMMARY | 2024-07-20 18:33 | XMS_ITS | Encounter Summary ---
Author Organization [facility] [place] [address] Care Team Providers Care Bounty Hunter Name Role Phone Monica Garcia MD Primary Care Provider [phone] Encounter Details Date Type Department Care Team (Late st Contact Info) Description 12/12/2010 External Results Obstetrics [place] [phone] Bobby Diamond MD [facility] OBSTETRICS & [place] [address] Social History Tobacco Use Types Packs/Day Years [...] 3:30 PM EST Office [place] [phone] Tarik Henry MD [facility] [place] [address] 09/22/2024 7:00 AM EST Appointment [place] [address] Luis Michael Jr., MD [facility] [place] [address] 09/22/2024 8:00 AM EST Office [place] [phone] Luis Michael Jr., MD [facility] [place] [address] documented as of this encounter Procedures Procedure Name Priority Date/Time Associated Diagnosis Comments LAB SCAN Routine 12/08/2010 documented in this encounter Results * LAB SCAN (12/08/2010) Bobby Diamond MD [facility] MGR SCAN EXT ORDR/RSLT documented in this encounter Visit Diagnoses Not on filedocumented in this encounter Care Teams Bounty Hunter Relationship Specialty Start Date End Date Monica Garcia MD [address] [place] [address] PCP - General 07/18/10 03/05/12 documented as of this encounter
--- OUTSIDE RECORDS SUMMARY | 2024-07-20 18:33 | XMS_ITS | Encounter Summary ---
Author Organization [facility] Address [address] [place] [address] Care Team Providers Care Yeast Fermentation Attendant Name Role Phone Unavailable Primary Care Provider Unavailabl e Encounter Details Date Type Department Care Team (Late st Contact Info) Description 03/29/2008 Before PRISM Converted Visit (Maple) [facility] - Maple conversion [address] [place] [address] Manish Couch MD [address] [place] [address] [place] [phone] Social History Tobacco Use Types Packs/Day [...] Priority Date/Time Associated Diagnosis Comments CYTOPATHOLOGY Routine 03/29/2008 0:00 EDT documented in this encounter Results * CYTOPATHOLOGY (03/29/2008 0:00 EDT) Pathology Report: CYTOPATHOLOGY REPORT ? Reports generated via electronic interface contain original data; ? however they are lacking the format of the original report. ? Caution should be taken when reading/interpreti ng unformatted reports. ? Name: ? JESSICA ALBRIGHT ? Accession #: ? [id number] ? : ? 1965 (Age: 42) ??F ?Collect Date: ? 03/29/2008 ? Location: ? [facility] ? Receive Date: ? 03/30/2008 ? Provider: ?MANISH COUCH MD ? Copy to: ? Specimen/Source: ?ThinPrep Pap Test, Cervix/Endocervix, processed on [employer] ThinPrep Imaging System, with manual evaluation ? Last Menstrual Period: ? Other: ? Additional clinical information: Nl exam, on [place] ? SPECIMEN ADEQUACY ? Satisfactory for Evaluation ? - transformation zone component present ? GENERAL CATEGORIZATION ? Negative for Intraepithelial Lesion or Malignancy ? Document reviewed and electronically signed by: ? Daphne F. Colasacco, SCT(ASCP) ? Report Date: ??03/31/2008 15:17 ? End of Report ? ARIELLE HECTOR 03/29/2008 03/30/2008 us Manish Couch MD PATHOLOGY ORDERABLES Final Resu lt [facility] [address] [place] [address] documented in this encounter Visit Diagnoses Not on filedocumented in this encounter
--- OUTSIDE RECORDS SUMMARY | 2024-07-20 18:33 | XMS_ITS | Encounter Summary ---
Author Organization [facility] Address [facility] [place] [address] Care Team Providers Care Impregnator Name Role Phone Monica Garcia MD Primary Care Provider Reason for Visit * Reason Comments Post Op Encounter Details Date Type Department Care Team (Late st Contact Info) Description 12/07/2010 4:30 PM EDT [place] [address] Chetna Waddell PA [facility] [place] [address] Nephrolithiasis (Primary Dx) Discharge Disposition: Home Social [...] documented in this encounter Progress Notes * Chetna Waddell PA - 12/07/2010 5:05 PM [...] EST Office Visit Orthopaedics at [place] [phone] Tarik Henry MD [facility] [place] [address] 09/22/2024 7:00 AM EST Appointment Ultrasound at [place] [phone] Luis Michael Jr., MD [facility] [place] [address] 09/22/2024 8:00 AM EST Office Visit Urology at [place] [phone] Luis Michael Jr., MD [facility] [place] [address] documented as of this encounter Results * US retroperitoneal complete (07/09/2011 1:31 PM EST) Anatomical Region Laterality Modality Abdomen Ultrasound 07/09/2011 1:31 PM EST Narrative 07/09/2011 1:47 PM EST ? Renal Report ? (Signed Final 07/09/2011 01:47 pm) Patient Info ID: ? [id number] ? : ??[birth year] (45 yrs) Name: ? JESSICAKATIE GTZ ? Visit Date: 07/09/2011 01:28 pm Performed By Performed By: ?Tiara AGRNER, Daphne Associate: ? Luciano GILL, Sumanth Beltran Attending: ? Luna GILL, Genie Dumont Referred By: ? CIERA OSBORNE [facility] Accession#: ?[id number] Service(s) Provided URETRO - Retroperitoneal Complete - [id number] ? [id number] Indications H/o nephrolithiasis, assess for new stones [...] Final 07/09/2011 01:47 pm) Patient Info ID: [id number] : [birth year] (45 yrs) Name: JESSICA GTZ Visit Date: 07/09/2011 01:28 pm Performed By Performed By: Daphne Menjivar RDMS Associate: Luciano GILL, Sumanth Beltran Attending: Genie Carrasco MD Referred By: CIERA ARMENDARIZ Service(s) Provided URETRO - Retroperitoneal Complete - [id number] Indications H/o nephrolithiasis, assess for new stones [...] attending Lucy Rueda MD IMG US GEN ORDNatalie ODONNELL documented in this encounter Visit Diagnoses Diagnosis Nephrolithiasis- Primary Calculus of kidney Nephrolithiasis Calculus of kidney documented in this encounter Care Teams Impregnator Relationship Specialty Start Date End Date Monica Garcia MD [address] [place] [address] PCP - General 07/18/10 03/05/12 documented as of this encounter
--- OUTSIDE RECORDS SUMMARY | 2024-07-20 18:33 | XMS_ITS | Encounter Summary ---
Author Organization [facility] Address [address] [place] [address] Care Team Providers Care Account Strategist Name Role Phone Unavailable Primary Care Provider Unavailabl e Encounter Details Date Type Department Care Team (Late st Contact Info) Description 07/14/2002 Before PRISM Converted Visit (Maple) [facility] - Maple conversion [address] [place] [address] Kristal [place], [facility] [address] [place] [address] Social History Tobacco Use Types [...] Priority Date/Time Associated Diagnosis Comments CYTOPATHOLOGY Routine 07/14/2002 0:00 EST documented in this encounter Results * CYTOPATHOLOGY (07/14/2002 0:00 EST) Pathology Report: CYTOPATHOLOGY REPORT Reports generated via electronic interface contain original data; however they are lacking the format of the original report. Caution should be taken when reading/interpreti ng unformatted reports. Name: ? JESSICA GTZ WRN ? Accession #: ? [id number] : ? 1965 (Age: 36) ??F ?Collect Date: ? 07/14/2002 Location: ? [facility] ? Receive Date: ? 07/15/2002 Provider: ?KRISTAL CARROLL GAS WELDER APPRENTICE Copy to: ? Specimen/Source: ?Conventional Pap Test, Cervix/Endocervix Last Menstrual Period: ? 06/26/02 Previous Gynecologic Pathology: ? ASC-US: 1994 ? SPECIMEN ADEQUACY ? Satisfactory for Evaluation - transformation zone component present GENERAL CATEGORIZATION ? Negative for Intraepithelial Lesion or Malignancy ? Document reviewed and electronically signed by: ? Daphne Bangura, NATHALY(ASCP) ? Report Date: ??07/21/2002 12:01 End of Report [facility]LE HECTOR 07/14/2002 07/15/2002 us Kristal [place] GAS WELDER APPRENTICE PATHOLOGY ORDERABLES Final R esult [facility] [address] [place] [address] documented in this encounter Visit Diagnoses Not on filedocumented in this encounter
--- OUTSIDE RECORDS SUMMARY | 2024-07-20 18:33 | XMS_ITS | Encounter Summary ---
Author Organization [facility] [place] [address] Care Team Providers Care Integration Technician Name Role Phone Monica Garcia MD Primary Care Provider [phone] Encounter Details Date Type Department Care Team (Late st Contact Info) Description 07/25/2010 2:15 PM EST Procedure visit [place] [address] Social History Tobacco Use Types Packs/Day Years [...] 3:30 PM EST Office [place] [phone] Tarik Henry MD [facility] [place] [address] 09/22/2024 7:00 AM EST [place] [phone] Luis Michael Jr., MD [facility] [place] [address] 09/22/2024 8:00 AM EST [place] [address] Luis Michael Jr., MD [facility] [place] [address] documented as of this encounter Visit Diagnoses Not on filedocumented in this encounter Care Teams Integration Technician Relationship Specialty Start Date End Date Monica Garcia MD [address] [place] [address] PCP - General 07/18/10 03/05/12 documented as of this encounter
--- OUTSIDE RECORDS SUMMARY | 2024-07-20 18:33 | XMS_ITS | Encounter Summary ---
Author Organization [facility] [place] [address] Care Team Providers Care Treatment Plant Mechanic Name Role Phone Janet Davey BATCH RECORDS CLERK Primary Care Provider Encounter Details Date Type Department Care Team (Late st Contact Info) Description 11/05/2007 [place] [phone] Nadia Stapleton BATCH RECORDS CLERK [facility] [address] Social History Tobacco Use Types Packs/Day Years Used Date Smoking Tobacco: Never Assessed [facility] Inpatient Questions Answer Date Recorded Does [...] PM EST Office Visit [place] [phone] Tarik Henry MD [facility] [place] [address] 09/22/2024 7:00 AM EST Appointment Ultrasound at [place] [phone] Luis Michael Jr., MD [facility] [place] [address] 09/22/2024 8:00 AM EST Office [place] [address] Luis Michael Jr., MD [facility] [place] [address] documented as of this encounter Procedures Procedure Name Priority Date/Time Associated Diagnosis Comments SURGICAL PATHOLOGY REPORT Routine 11/05/2007 10:27 AM EDT documented in this encounter Results * Surgical Pathology Report (11/05/2007 10:27 AM EDT) Surgical Pathology Report [id number] ? Location: The signing pathologist has (i) examined the relevant preparation(s) for the specimen(s) and (ii) rendered or confirmed the diagnosis(es). . ?Pathology Surgical Pathology Final Report Clinical Information Specimen Submitted: A - Stone for analysis Clinical History: H/O kidney stones Clinical Diagnosis: Kidney stones Gross Description Labeled/Fixative: ? Labeled with the patient's name, fresh. Quantity/Size: ?Fragments, 5.0 x 4.0 x 4.0 cm in aggregate. Tissue Description: ?? Fragments of yellow-reyes calculus material. Sections/Process: ? Submitted for chemical analysis. ?? aje/EJR Diagnosis Renal calculus (see Comment). CR-0 03/24/08 [facility] 11/17/07 Verified by: ? Kole Dudley MD ?Pathologist ?(Electronic Signature) The attending pathologist whose signature appears on this report has reviewed all diagnostic slides and has edited the gross and/or microscopic portion of the report in rendering the final pathologic diagnosis. Comment The report of Crystallographic Examination of Calculus, 22R486, has been received from the [facility], [address] [place] [id number]. For the full text of the [facility] report please refer to Non-DH Documentation Pathology in the Clinical Information System (CIS). KYRA ARAMISASHA 11/05/2007 10:2 7 AM EDT Nadia Bermudez APRN PATHOLOGY/CYTOL OGY ORDERABLES Performing Organization Address City/State/[place] Co de Phone Number KYRA QUAN documented in this encounter Visit Diagnoses Not on filedocumented in this encounter Care Teams Treatment Plant Mechanic Relationship Specialty Start Date End Date Janet Davey APRN PCP - General Family Medicine 07/13/20 02/10/24 documented as of this encounter
--- OUTSIDE RECORDS SUMMARY | 2024-07-20 18:33 | XMS_ITS | Encounter Summary ---
Author Organization [facility] Address [facility] [place] [address] Care Team Providers Care Machine Coil Assembler Name Role Phone Monica Garcia MD Primary Care Provider [phone] Encounter Details Date Type Department Care Team (Latest Contact Info) Description 12/07/2010 1:27 PM EDT - 12/07/2010 11:59 PM EDT Hospital Encounter Obstetrics [place] [address] Bobby Diamond MD [facility] OBSTETRICS & [place] [address] Discharge Disposition: Home Social History Tobacco Use [...] 137 mcg nasal spray 08/24/2010 07/25/2011 Evening [employer] 500 mg Cap 08/24/2010 01/24/2015 FOLIC [...] 3:30 PM EST Office [place] [phone] Tarik Henry MD [facility] [place] [address] 09/22/2024 7:00 AM [place] [phone] Luis Michael Jr., MD [facility] [place] [address] 09/22/2024 8:00 AM EST [place] [address] Luis Michael Jr., MD [facility] [place] [address] documented as of this encounter Visit Diagnoses Not on filedocumented in this encounter Care Teams Machine Coil Assembler Relationship Specialty Start Date End Date Monica Garcia MD [address] [place] [address] PCP - General 07/18/10 03/05/12 documented as of this encounter
--- OUTSIDE RECORDS SUMMARY | 2024-07-20 18:33 | XMS_ITS | Encounter Summary ---
Author Organization [facility] [place] [address] Care Team Providers Care Hospice Home Care Coordinator Name Role Phone Monica Garcia MD Primary Care Provider [phone] Encounter Details Date Type Department Care Team (Late st Contact Info) Description 07/25/2010 3:00 PM EST [place] [phone] Luis Michael Jr., MD [facility] [place] [address] Discharge Disposition: Home Social History Tobacco Use [...] Office [place] [address] Tarik Henry MD [facility] ORTHOPAEDIC [place] [address] 09/22/2024 7:00 AM EST Appointment [place] [address] Luis Michael Jr., MD [facility] [place] [address] 09/22/2024 8:00 AM EST Office [place] [address] Luis Michael Jr., MD [facility] [address] documented as of this encounter Visit Diagnoses Not on filedocumented in this encounter Care Teams Hospice Home Care Coordinator Relationship Specialty Start Date End Date Monica Garcia MD [address] [place] [address] PCP - General 07/18/10 03/05/12 documented as of this encounter
== END 2024-07-20 18:23 | disposition home or self-care (01) ==
LOC: LBN 18:22
PROVIDERS: PCP Physician Assistant Medical; Visit Provider Nurse Practitioner Family
DX: N76.0 Acute vaginitis (principal)
CPT/HCPCS: 87480; 87510; 87660

== ENCOUNTER 2024-11-13 09:59 | Emergency (ER) | payer BC, SELFPAY ==
[2024-11-13 10:11] VITALS: BP 123/89; PULSE 88; RESP 14; TEMP 37; O2SAT 98
--- NOTE | 2024-11-13 11:24 | ED.GENADUL_ITS ---
Discharge Plan Disposition Patient Disposition: Home Condition: Stable Discharge Details Clinical Impression: Depression, Hypokalemia Primary Care Provider: David Lockhart ED Provider: Raza Dsouza Home Meds and New Rx's Prescriptions: New aripiprazole [Abilify] 2 mg tablet 2 mg PO QHS Qty: 30 0RF Continued fexofenadine 180 mg tablet 180 mg PO DAILY hydrochlorothiazide 12.5 mg capsule 12.5 mg PO DAILY galantamine 12 mg tablet 12 mg PO BID Qty: 180 3RF Rx Instructions: administer with AM and PM meals chlorpheniramine maleate 4 mg tablet 4 mg PO Q6H PRN sumatriptan succinate [Imitrex] 100 MG tablet 100 mg PO ONCE Rx Instructions: PRN clotrimazole-betamethasone [Lotrisone] 45 GM cream 45 gm Topical PRN montelukast [Singulair] 10 MG tablet 10 mg PO DAILY Rx Instructions: PRN seasonal albuterol sulfate [ProAir HFA] 8.5 GM HFA aerosol inhaler 2 puff Inhalation Q6H PRN Patient Comments: seasonal estradiol 1 EACH patch weekly 1 ea Transdermal . DIRECTED hydrocortisone valerate 15 GM cream 15 gm Topical BID azelastine-fluticasone [Dymista] 23 GM spray,non-aerosol 23 gm NS PRN (DME) BreatheRite MDI Spacer Spacer See Rx Instructions .Route Rx Instructions: As directed magnesium oxide 400 mg magnesium tablet 800 mg PO QHS (DME) Oxygen Tank See Rx Instructions .Route Rx Instructions: 1 unit as directed. Use 2-4L NC with conserving device. budesonide-formoterol [Symbicort] 160-4.5 mcg/actuation HFA aerosol inhaler 2 puff Inhalation BID memantine 10 mg tablet 10 mg PO BID Qty: 180 3RF ibuprofen 600 mg tablet 600 mg PO Q6H PRN (Reason: Pain and inflammation) Qty: 60 0RF ipratropium bromide 21 mcg (0.03 %) spray,non-aerosol 2 spray INTRANASAL BID Patient Comments: SPRAY TWO SPRAYS IN EACH NOSTRIL TWICE A DAY sertraline 100 mg tablet 100 mg PO DAILY Patient Comments: TAKE ONE TABLET BY MOUTH EVERY DAY Rx Instructions: Take with 25 mg, total of 125 mg Discontinued sertraline 25 mg tablet 25 mg PO DAILY Patient Comments: TAKE ONE TABLET BY MOUTH EVERY DAY. TAKE IN COMBINATION WITH 100MG Discharge Instructions Instructions: Hypokalemia, Depression, Adult ED Additional Instructions: Please take medication as prescribed. Please follow-up with psychiatry at [facility]. Please follow-up with your primary care physician. Please follow the safety plan established with [facility] crisis team. Please return to the emergency department immediately for any worsening or new concerning symptoms. Referrals: [facility] [Outside] David Lockhart PA [Primary Care Provider] - HPI General Mode of arrival: ambulatory . Date/Time Provider Initiated Documentation: 11/13/24 10:20 . Limitations to Documentation: no limitations . Information obtained by: patient . HPI Narrative: HISTORY OF PRESENT ILLNESS The patient presents for evaluation of depression. Patient presents voluntarily. She has experienced significant emotional distress over the past 2 years, starting with her 's , followed by the loss of her parents within 13 months. 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 A friend helped her through this crisis. She continues to struggle with sadness, anger, and apathy, especially in the past 3 weeks. She reports lack of interest in activities and disconnection from surroundings. On sertraline since her 's , her dosage increased to 125 mg daily 3-4 weeks ago. She has not tried other antid epressants. No recent illnesses or medical issues. Reports memory problems, migraines, and 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 No specific thoughts of harming others but recurrent suicidal ideation. Access to pills at home, no history of suicide attempts or psychiatric hospitalizations. Related Data Home Medications ?Medication ?Instructions ?Recorded ?Confirmed Imitrex 100 mg tablet (sumatriptan 100 mg PO ONCE 03/28/15 11/13/24 succinate) Lotrisone 1 %-0.05 % topical cream 45 gm topical PRN 03/28/15 11/13/24 (clotrimazole-betamethasone) ProAir HFA 90 mcg/actuation 2 puff inhalation Q6H PRN 03/28/15 11/13/24 aerosol inhaler (albuterol sulfate) Singulair 10 mg tablet 10 mg PO DAILY 03/28/15 11/13/24 (montelukast) estradiol 0.1 mg/24 hr weekly 1 ea transdermal . DIRECTED 03/28/15 11/13/24 transdermal patch azelastine 137 mcg-fluticasone 50 23 gm NS PRN 11/11/17 11/13/24 mcg/spray nasal spray (Dymista) hydrocortisone valerate 0.2 % 15 gm topical BID 11/11/17 11/13/24 topical cream ibuprofen 600 mg tablet 600 mg PO Q6H PRN Pain and 08/11/21 11/13/24 inflammation #60 tabs inhalational spacing device 01/15/22 11/13/24 (BreatheRite MDI Spacer) magnesium oxide 800 mg PO QHS 01/15/22 11/13/24 fexofenadine 180 mg tablet 180 mg PO DAILY 04/02/22 11/13/24 Oxygen 12/04/22 11/13/24 budesonide-formoterol HFA 160 2 puff inhalation BID 12/13/22 11/13/24 mcg-4.5 mcg/actuation aerosol inhaler (Symbicort) hydrochlorothiazide 12.5 mg capsule 12.5 mg PO DAILY 12/13/22 11/13/24 galantamine 12 mg tablet 12 mg PO BID #180 tabs 01/22/24 11/13/24 chlorpheniramine maleate 4 mg 4 mg PO Q6H PRN 05/01/24 11/13/24 tablet memantine 10 mg tablet 10 mg PO BID #180 tabs 10/27/24 11/13/24 aripiprazole 2 mg tablet (Abilify) 2 mg PO QHS #30 tabs 11/13/24 ipratropium bromide 21 mcg (0.03 2 spray intranasal BID 11/13/24 11/13/24 %) nasal spray sertraline 100 mg tablet 100 mg PO DAILY 11/13/24 11/13/24 Previous Rx's ?Medication ?Instructions ?Recorded ibuprofen 600 mg tablet 600 mg PO Q6H PRN Pain and 08/11/21 inflammation #60 tabs galantamine 12 mg tablet 12 mg PO BID #180 tabs 01/22/24 memantine 10 mg tablet 10 mg PO BID #180 tabs 10/27/24 aripiprazole 2 mg tablet (Abilify) 2 mg PO QHS #30 tabs 11/13/24 Allergies Allergy/AdvReac Type Severity Reaction Status Date / Time latex Allergy Intermediate Skin Rash Verified 11/13/24 10:16 animal,grass,smoke,tree Allergy Unknown unknown Uncoded 11/13/24 10:16 pllen, molds contrast dye Allergy Unknown Unknown Uncoded 11/13/24 10:16 General Stated Complaint: PsychEval YANETH: 2 Review of Systems All systems reviewed & are unremarkable except as noted in HPI and below Exam Const General: cooperative and other (Tearful at times) Orientation: alert Limitations: altered mental status HENMT Mouth: moist mucous membranes Eyes Conjunctivae: normal conjunctivae Sclera: normal sclerae Neck Thyroid: thyroid normal Resp Auscultation: clear to auscultation bilaterally, no rales, no rhonchi and no wheezes Cardio Jugular venous pressure: no JVD Rate: regular rate and not tachycardic Rhythm: regular rhythm Neuro General: patient alert, patient awake, patient oriented x3 and tone normal Extrem General: no edema Psych Mental Status: mental status grossly normal and other (Depressed) Speech and Movement: speech and movement normal Mood: other (Depressed) Affect: blunted Attitude: cooperative Insight: insight good Course Vital Signs Vital signs: Vital Signs Temperature 37 C 11/13/24 10:11 Pulse 88 11/13/24 10:11 Respiratory Rate 14 11/13/24 10:11 Blood Pressure 123/89 11/13/24 10:11 Pulse Oximetry 98 11/13/24 10:11 Temperature 37 C 11/13/24 10:11 Temperature Source Oral 11/13/24 10:11 Pulse 88 11/13/24 10:11 Respiratory Rate 14 11/13/24 10:11 Blood Pressure 123/89 11/13/24 10:11 Blood Pressure Position Sitting 11/13/24 10:11 Pulse Oximetry 98 11/13/24 10:11 Oxygen Delivery Method Room Air 11/13/24 10:11 Oxygen Flow Rate 0 11/13/24 10:11 Pain Level 0 11/13/24 10:11 Medical Decision Making ASSESSMENT AND PLAN Initial Assessment: Stacy Albright presents with severe depression, significant grief, and stress over the past two years. Recently increased sertraline to 125 mg daily. Continues to experience suicidal thoughts and anger. ED Course: - Crisis team to evaluate - Medical screening, including physical examination and necessary tests, performed. Patient medically screened and stable for psychiatric evaluation. - Consider thyroid disease; TSH screening test performed. -Labs reviewed and mild hypokalemia noted. Potassium is 3.2. K-Dur 20 mill equivalents ordered. -Patient was seen by crisis team who recommended discharge with outpatient resources and follow-up. They are recommending care bed and will arrange for this hopefully early next week. They will arrange for follow-up with psychiatry. Safety plan was established with the patient. -Telepsychiatry consult was obtained. I spoke with the telepsychiatrist who recommends decreasing sertraline to 100 mg daily and starting Abilify 2 mg at night. He recommended outpatient follow-up with psychiatry. Final Assessment: Stacy Albright is experiencing severe depression with recent suicidal thoughts and anger. A medical screening exam was performed. Hypokalemia was noted and treated. Patient was seen by crisis team and telepsychiatry and cleared for discharge with outpatient follow-up. Safety plan established. Clinical Impression: - Depression Disposition: - Follow-Up: Crisis team evaluation and treatment plan development. MDM Components Evaluation: - Number of Differential Diagnoses or Management Options: Depression - Amount and Complexity of Data Reviewed: Medical screening, physical examination, TSH screening - Risk of Complication and Morbidity or Mortality: High risk due to ongoing suicidal thoughts and severe depression. This document was written with the assistance of CLAUDINE Albarado. The patient consented to its use. Quality:SDOH Health Related Social Needs: No Data to Display PFSH All Active Problems (Updated 11/13/24 @ 16:03 by Raza Dsouza MD) Hypokalemia (Acute) Depression (Chronic) Porokeratosis (Acute) Achilles tendon contracture, bilateral (Acute) Screening for colorectal cancer (Chronic) 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) Allergic rhinitis (Chronic 11/04/13) Postnasal drip (Chronic 04/05/14) Mild cognitive impairment (Chronic) Allergic fungal sinusitis (Acute 07/20/13) Allergic rhinitis due to pollen (Chronic 08/08/15) Closed nondisplaced avulsion fracture of tuberosity of right calcaneus (Acute 06/09/18) Because of persistent symptoms and tenderness over the anterior talus i think repeat x-rays are indicated to rule out an osteochondral injury to the talus. These are performed today and appear normal. I inform the patient that it will take along time before she is asymptomatic. I recommend a trial of topricin to help with the discomfort. follow-up with me an needed. Hallux valgus (acquired), left foot (Acute) COVID-19 virus infection (Acute) Cough (Acute) Sore throat (Acute) COVID-19 long hauler (Acute) Corns and callosities (Acute) Pain, foot (Acute) right Loose stools (Acute) RAD (reactive airway disease) (Acute) Dyspnea (Acute) Oxygen desaturation (Acute) Hypokalemia (Acute) Lumbar pain (Acute) Osteoarthritis (Chronic) shoulder Keratosis pilaris (Acute) Orthostasis (Acute) positional Folliculitis (Acute) presumed fungal Rotator cuff syndrome of right shoulder (Acute) Herpes labialis (Acute) Unspecified contraceptive management (Acute) Insomnia (Acute) Fatigue (Acute) Hair loss (Acute) Memory impairment (Acute) Kidney stones (Chronic) Irregular menses (Acute) Osteoporosis (Chronic) Postherpetic neuralgia (Acute) Rhinitis, chronic (Acute) Environmental allergies (Acute) Asthma, severe persistent (Acute) Medical History Tachycardia NOC Asthma History of kidney stones History of gastroesophageal reflux (GERD) Chondromalacia Depression Migraine Surgical History Hx of shoulder surgery Knee surgery Colonoscopy - IV Sedation (05/27/15) SALLY ARAYA Family History Other Personal history of malignant neoplasm Social History Smoking/Tobacco Use Status: Never Second Hand Exposure: Yes (occasionally) Smoking risk assessment performed?: Yes Alcohol Intake: current Alcohol Intake frequency: holidays/special occasions only Drug use: Never Substance use type: does not use Housing: house 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
[2024-11-13 11:26] LABS: Abs Immature Grans 0.15 10^3/uL (0.0-0.06); Absolute Basophil Count 0.07 10^3/uL (0.0-0.2); Absolute Eosinophil Count 0.06 10^3/uL (0.0-0.7); Absolute Lymphocyte Count 1.14 10^3/uL (1.2-3.4); Absolute Monocyte Count 0.46 10^3/uL (0.1-0.8); Absolute Neutrophil Count 4.79 10^3/uL (1.2-6.7); Eosinophils % 0.9 %; HCT 43.7 % (36.0-46.0); HGB 14.5 g/dL (11.2-15.7); Immature Grans % 2.2 %; Lymphocytes % 17.1 %; MCH 31.1 pg (27.0-33.0); MCHC 33.2 % (32.0-36.0); MCV 94 fL (80-95); MPV 8.1 fL (8.0-11.0); Monocytes % 6.9 %; Neutrophils % 71.9 %; Platelet Count 254 10^3/uL (130-400); RBC 4.66 10^6/uL (3.93-5.22); RDW 13.6 % (11.7-14.6); RDW-SD 45.9 fL; WBC 6.67 10^3/uL (4.4-10.8)
[2024-11-13 11:53] LABS: ALT 33 U/L (14-59); AST 22 U/L (15-37); Albumin 3.5 g/dL (3.4-5.0); Alkaline Phosphatase 63 U/L (46-116); Anion Gap 5.8 mmol/L (3-11); BUN 15 mg/dL (7-18); Bilirubin, Total 0.4 mg/dL (0.2-1.0); CO2 34.2 mmol/L (21.0-32.0); CREATININE 0.8 mg/dL (0.55-1.02); Calcium 9.3 mg/dL (8.5-10.1); Chloride 104 mmol/L (98-107); Estimated GFR 83.78 (mL/min/1.73m2); Glucose 117 mg/dL (74-106); Potassium 3.2 mmol/L (3.5-5.1); Sodium 144 mmol/L (136-145); Total Protein 7.4 g/dL (6.4-8.2)
[2024-11-13 13:15] LABS: TSH (W/Ref FT4) 1.93 uIU/mL (0.36-3.74)
[2024-11-13] MEDS: Potassium Chloride 20 MEQ TABCR PO (13:17)
--- NOTE | 2024-11-13 15:21 | CMPROGNOTE_ITS ---
Date of service: 11/13/24 Time of Service: 15:21 Care Management Progress Note Progress Note Text Progress Note Text: CM met with ED staff and [facility] to discuss Stacy's plan of care. Per [facility], Stacy has suffered a lot of loss in the last couple of years, losing her and both of her parents in a short period of time. She has been seeing a therapist locally, and has support from her larry operator. Her PCP has been managing her medications, and has recently increased her dose of sertraline. She is reporting increased feelings of anger and SI, and feeling indifferent about things in her life. She met with [facility], who recommended a tele psychiatric consult while in the ED; Stacy reportedly does not feel that she needs inpatient psychiatric treatment, and has expressed that she cannot take time off work to do so. [facility] inquired at the Care Bed, which is currently full with no availability. Per [facility] clinician, she will be discharged home with a safety plan and close follow up by [facility]. If a bed becomes available at the Care Bed, she can admit there from the community, where [facility] can expedite her connection with a psychiatric provider for med management. Stacy is agreeable to this plan. CM will continue to follow. Social Determinants of Health Screening Social Determinants of Health last assessed: 11/13/24 Will the Patient Participate in the Screening?: Yes Do you worry about having a steady place to live?: no Problems where you live: no known problems In the past 12 months, have you had to go without electric, gas, oil or water in your home?: no Have you or anyone in your house had to go without enough food to eat?: no Has lack of transportation kept you from medical appointments or from doing things needed for daily living?: no Has anyone in your life made you feel unsafe or unsupported?: no How hard is it for you to pay for the very basics like food, housing, medical care, and heating? Would you say it is:: Not hard at all Do you want help finding or keeping work or a job?: I do not need or want help If for any reason you need help with day-to-day activities such as bathing, preparing meals, shopping, managing finances, etc., do you get the help you need?: I don?t need any help How often do you feel lonely or isolated from those around you?: Never Do you speak a language other than Malay at home?: No Does the patient want assistance with any of the above?: No
--- NOTE | 2024-11-13 15:57 | W.TELEPSYCH ---
Date of service: 11/13/24 Time of Service: 15:57 Summary Note PSYCHIATRY CONSULT NOTE: INITIAL EVALUATION Date/Time:?11/13/2024 3:55:13 PM Name:Yumiko Albright :?1965 Location of the patient:?[facility] ED Consulting Array Clinician:?Pawan Abraham Location of the clinician:?[place] Length of Consult:?45 minutes SUMMARY 59-year-old female, with history of anxiety disorder, depressive disorder, history of suicidal ideation, history of psychiatric hospitalization, with no current excessive drug use, no history of violent behavior, self-referred via walk-in for suicidal ideation, depression. when seen, patient indicates that she has had several years of depression related to multiple losses. These have included the of both of her parents, handling the estate, and recent of her cousin's about a month or so ago. That loss, as well as the closing of the estate, resulted in a significant worsening of her depression about a month ago. She was having some suicidal thoughts at that point but was not hospitalized. Her primary care doctor increased her sertraline to 125 mg. Since that time, she feels that the suicidal thoughts have resolved. She does say that the increase was helpful for that however she finds herself more irritable, less motivated, and not caring about anything. She is fairly convinced that these are side effects of the dose increase. I have my doubts about that as these are not typical side effects and are likely more related to her psychosocial issues. She denies any current suicidal ideation and does have a therapist. I discussed with her going back to sertraline 100 mg daily and adding Abilify 2 mg p.o. nightly to help address her moods, sleep issues, and she is agreeable. She likely needs to change to a completely different agent however that something that I not comfortable doing from the ER. I talked with her about getting connected with an outpatient psychiatrist and several primary care doctor and she would like information about that as well. I do not feel that she needs hospitalization at this point and can continue to be managed outpatient. Collateral confirms history and no safety concerns. Patient denies SI/HI, does not display signs or symptoms of serious psychosis, contracts reliably for safety, is future oriented, is able to provide for basic needs/safety, has reliable collateral support who confirms safety. Patient does not appear to be at acute risk to self or others due to psychiatric illness or to require inpatient psychiatric hospitalization. Working Diagnoses:? F33.1 Major depressive disorder, recurrent, moderate Rule Out Diagnoses:? CPT Codes:?47028 - Psychiatric Diagnostic Evaluation with Medical Services PLAN Disposition:? Discharge type: Discharge when medically stable Resource information to be provided by site: outpatient mental health treatment, information about patient's diagnosis, treatment recommendations, including dosage and side effects of any prescribed medications; Outpatient psychiatric med management ? Observation level ? Psychiatric 1:1 needed??No psych 1:1 needed Work-up:? Pharmacological:? Recommend decreasing sertraline back to 100 mg daily and adding Abilify 2 mg p.o. nightly Is patient psychotic? - No; Informed consent: Discussed risks and benefits of the above recommended psychiatric medications with patient, who demonstrated understanding and gave express informed consent to take the above medications as documented. Follow up needed while in the hospital??none Other:? Parts of this note were dictated using voice recognition software and may contain small irregularities and grammatical errors which are unintentional. If questions arise about the psychiatric care of this patient, please call the [facility]?to request a follow-up consult. ?Please do not contact me individually through the EMR chat as I am not?regularly logged on to?this system. The psychiatrist for the follow-up visit may be a different psychiatrist Discussed plan with onsite store team leader:?Yes - Dr Dsouza HISTORY This evaluation was conducted remotely with the assistance of onsite staff via HIPAA-compliant video call. Patient consented to proceed with the telehealth visit. Requested by:?Raza Dsouza MD Sources of information:?Patient, medical record, son History of Present Illness:? 59-year-old female, living alone, , employed, with history of anxiety disorder, depressive disorder, history of suicidal ideation, history of psychiatric hospitalization, with no current excessive drug use, no history of violent behavior, self-referred via walk-in for suicidal ideation, depression. In the hospital, patient has been in behavioral control with no reported issues. Patient presented to the emergency department 11/13/2024 for evaluation of depression. She has had significant emotional distress over the past 2 years since her 's and then the of her parents. She also had an injury in May 2024 which increased her stress. She has severe depressive episode and in September 2024, which included suicidal thoughts and her friend helped her get through this but she continues to struggle with sadness, anger, apathy and this is worsened over the past 3 weeks. She has lost interest in activities and has disconnected from surroundings. She has been on sertraline which was increased to 125 mg about a month ago. She has been on no other antidepressants. She has had recurrent suicidal ideation. She has no history of attempts or psychiatric hospitalizations. Chart indicates also that she has neurocognitive deficits. She has had long-term difficulty with her memory which has been going on since 2014. 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 She has been evaluated at [facility] and testing was not consistent with dementia and is generally remained stable.. On psychiatric evaluation, patient is reliable, organized, cooperative, alert, pleasant, able to give clear history. She says she is here because she has been more depressed and angry over the past month. She feels she doesnt care about things like she used to . She has bene on it for 3 years. She says her meds were increased about a month ago due to the grieving really hitting recently. She feels she was so busy for so long that she hasnt emotionally processed any of this. She feels her functioning has declines and I work thats about all I do. I asked about the SI and she says this was about 5 weeks ago. She says her cousins about that time which added onto her stress, as well as something with her 2 sons which involved loss she doesnt specify. She says this prompted the increase in her sertraline. She says this helped the SI and she says she hasnt really had any SI in several weeks. She says the SI is all that was helped by increasing the Sertraline. Her side splitter removed all the old meds weeks ago when she was having these thoughts so she has no access to anything she can hurt self with. She has had decreased appetite, and decreased sleep. She was having alot of nausea and her PCP started medication which helped her appetite. She has gone form 7-8 hours to 4-5 a night. No other side effects. She feels like her increased anger and anhedonia are a side effect of the sertraline increase.. Collateral Contacted Contacted Colby Albright--son ([phone]). Collateral reports patient poses no immediate safety concerns and is safe to return home, understands and agrees with discharge plan, and is aware that should symptoms worsen to return to the ED or call 911. Collateral reports patient has no access to firearms. He saty he feels her mood has been worsening over the past month. She has been busy and really avoided the grief and hasnt dealt with her losses. he confirms the SI was about a month ago. He hasnt heard any SI since then and has no concerns she would ever try to hurt herself.. PSYCHIATRIC REVIEW OF SYSTEMS (symptoms in past two weeks) Pertinent Positives:?depressed mood/anhedonia/insomnia/poor appetite/irritability Pertinent Negatives:?no hopelessness/no aggressive behavior/no agitation/no auditory hallucinations/no visual hallucinations/no command hallucinations/no anxiety/no panic attacks/no impulsivity PSYCHIATRIC HISTORY Past Psychiatric Diagnoses/Problems:?anxiety disorder, depressive disorder Psychiatric Treatment:?Hospitalizations:?psychiatric hospitalization ???Other Past treatment:?Current treatment:?therapy, treatment with [facility]. [facility] for therapy. Drug/Alcohol History ???Current excessive drug/alcohol use:?none ???Past excessive drug/alcohol use:?none ???Drug/alcohol use comment:?Treatment:?none ???Withdrawal symptoms:?none ???UDS results:?BAL results:?Active withdrawal Protocol:? Stressors:?recent loss, exacerbation of mental illness, family stress, job stress Trauma:? of loved one Family Psychiatric History:?parents had depression, sister has had paranoia since of parents HEALTH HISTORY Medical Problems:? deemed medically stable Is patient linked with PCP??yes Psychiatric and other clinically relevant medications:?Sertraline 125 mg p.o. every morning Allergies/Adverse Medication Reactions:?Latex, contrast dye Physical Findings:?no clinically significant changes in vital signs, no clinically significant abnormal lab values DEMOGRAPHICS/SOCIAL HISTORY Gender:?female Living Situation:?living alone Relationship Status:? 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 In the past two weeks, have you felt down, depressed, or hopeless??YES 2. In the past two weeks, have you had thoughts of killing yourself??NO 3. In your lifetime, have you ever attempted to kill yourself??NO 3a. Within the past 6 months??NO ESS-6 Secondary Screen ( If #2 is yes or #3a is yes within the past 6 months, then complete secondary screen) 1. Positive on PSS-3 questions 2 & 3 ? active suicidal ideation with a past attempt??Screen not applicable 2. Have you been thinking about how you might kill yourself??Screen not applicable 3. Have you had some intention of acting on your thoughts??Screen not applicable 4. Lifetime psychiatric hospitalization??Screen not applicable 5. Has drinking or substance abuse ever been a problem for you??Screen not applicable 6. Current irritability, agitation, or aggression??Screen not applicable PSS-3/ESS-6 Secondary Screen Scoring:?Low Risk-PSS3 screen negative PSS-3/ESS-6 Scoring Interpretation Legend PSS-3 screen incomplete [Blank PSS-3 questions #2 OR #3a] PSS-3 screen unable to assess [Unable to Assess responses on PSS-3 questions #2 AND #3a] Mild [No current attempt AND No suicide plan or intent AND Score (0-2)] Moderate [No current attempt AND Active suicidal ideation with plan or intent (not both) OR Score (3-4)] Severe [Current attempt OR Suicide plan and intent OR Score (5-6)] HI/Violence/Property Destruction:?no history of violent/aggressive behavior Access to Firearms:?none. Collateral reports patient has no access to firearms. Grave disability/Poor self-care:?no Psychosis:?No Protective Factors:?identifies reasons for living; engaged in work or school; responsibility to children or others; future orientation High Utilization Criteria:?none Signs of Secondary Gain:?none MENTAL STATUS EXAM Appearance and Attire:? Normal, Good eye contact, Well groomed Psychomotor agitation:? No abnormality Attitude and behavior:? Cooperative Speech:? No abnormality Mood:? Depressed Affect:? Constricted Thought Process:? Linear, Logical, Coherent Thought content:? No suicidal ideation, No homicidal ideation, No paranoia, No delusions Perception:? Intelligence:? Average Abstraction:? Appropriate Language:? No abnormality Orientation:? Oriented x 4 Sensorium:? Normal Knowledge:? Appropriate for education and socioeconomic status Memory:? Intact Insight:? Appropriate Judgment:? Appropriate SUMMARY RISK ASSESSMENT Current Suicide Risk Elevated??PSS-3/ESS-6 Scoring: Low Risk-PSS3 screen negative? Current Violence Risk Elevated??No Issues with ability to care for self.?No Pawan Abraham , [facility]
[2024-11-13 16:34] VITALS: BP 128/84; PULSE 91; RESP 18; O2SAT 95
--- NOTE | 2024-11-13 16:53 | PDOC.MHCN_ITS ---
Date of service: 11/13/24 Time of Service: 11:00 PHQ-9 Over the last 2 weeks, how often have you been bothered by any of the following problems? 1. Little interest or pleasure in doing things: nearly every day 2. Feeling down, depressed, or hopeless: nearly every day 3. Trouble falling or staying asleep, or sleeping too much: nearly every day 4. Feeling tired or having little energy: nearly every day 5. Poor appetite or overeating: more than half the days 6. Feeling bad about yourself - or that you are a failure or have let yourself and your family down: nearly every day 7. Trouble concentrating on things, such as reading the newspaper or watching television: nearly every day 8. Moving or speaking so slowly that other people could have noticed? - Or the opposite - being so fidgety or restless that you have been moving around a lot more than usual: more than half the days 9. Thoughts that you would be better off or of hurting yourself in some way: nearly every day Total score: 25 If you checked off any problems, how difficult have these problems made it for you to do your work, take care of things at home, or get along with other people?: extremely difficult Source: Developed by Drs. Salvador Ervin, Brenda Weathers, Josh Urias and colleagues, with an educational edison from [employer]. Suicide Severity Rate CSSRS Have you wished you were or wished you could go to sleep and not wake up?: Yes Have you actually had any thoughts of killing yourself?: Yes CSSRS2 Have you been thinking about how you might do this?: Yes Have you had these thoughts and had some intention of acting on them?: No Have you started to work out or worked out the details of how to kill yourself? Do you intend to carry out this plan?: Yes CSSRS3 Have you ever done anything, started to do anything or prepared to do anything to end your life?: No CSSRS4 Was this within the past three months?: Yes Screening Score Total Score: 6 Screening: Positive Mental Health Emergency Note Release [facility] release signed:: Yes Reason for Visit Client shared with her PCP that she was having SI thoughts. In the last 2 weeks has the pt presented for ES prior to today?: No Client Information Client is: Adult Outpatient Well Housed: Yes Non Suicidal Self Injury Current: No History: No Safety Risk/Harm to Self or Others Current Ideation to Harm Self or Others: No Risk: Does risk to harm exist?: No Risk: Low Risk Duty to warn indicated: No Asssessment/Mental Status Appearance: Unremarkable Attitude: Cooperative and Friendly Behavior: Unremarkable Speech: Normal and Soft Affect: Normal Mood: Sad, Stressed, Depressed and Anxious Thought process: Unremarkable Hallucinations: No Delusions: No Attention: Unremarkable Perception: Not impaired Orientation: Fully orientated Memory: Intact Insight: Fair Judgement: Fair Neurovegetative Symptoms Sleep: Decrease Appetitie: Decrease Interests: Decrease Energy: Decrease Substance Use: Do you use nicotine?: No Have you used substances in the last 7 days?: No Additional Issues: Assaultive/Threatening Behavior: No Medical Concerns: No Client engaged in active self harm w/weapon: No Threatening to run away: No Child reported abuse/neglect: No Voluntarily presenting for services: Yes Domestic violence is a concern: No Extreme Psychosis or extreme behavior is present: No Impression Client is a 59 year old female who lives alone and is unknown to [facility]. Client goes be she/her. Client shared that she lost her , father and mother within two years of each other and is struggling with the grief and experiencing increased anger. It's incongruent with her medication increase that happened a month ago. Client stated that she is in a state of not caring and is just feeling hopeless and angry. She is strong in her hindu convictions and sikhism and finds comfort in her orthodox family but is finding that she isn't praying or caring about God as of late. Client agreed to a referral to be sent to the care bed and have a tele psych evaluation done to try and figure out her medication. Care bed is currently full, but clinical writer was able to safety plan client home until a bed opens up. Resources Reosurces reviewed and given:: [facility] Plan/Disposition Recommended Disposition: Crisis bed, facility contacted. Status of Crisis Bed acceptance: Not accepted, no bed availabiltiy and Med management. Plan: Client was safety planned home and will be waiting for a call from the care bed with availably. Person reported agreement to plan: Yes Facilities contacted if Applicable Other: Other Reports/communication Outcome discussed with: ED/Personnel
== END 2024-11-13 16:37 | disposition home or self-care (01) ==
PROVIDERS: Emergency Provider Student in an Organized Health Care Education/Training Program; PCP Physician Assistant Medical
DX: F33.1 Major depressive disorder, recurrent, moderate (principal); E87.6 Hypokalemia
CPT/HCPCS: 00123; 36415; 80053; 96127; 99284; 84443; 85025

== ENCOUNTER 2024-11-17 16:39 | Outpatient (REF) | payer BC, SELFPAY ==
[2024-11-17 20:07] LABS: Anion Gap 6.2 mmol/L (3-11); BUN 18 mg/dL (7-18); CO2 31.8 mmol/L (21.0-32.0); CREATININE 0.9 mg/dL (0.55-1.02); Calcium 9.5 mg/dL (8.5-10.1); Chloride 101 mmol/L (98-107); Estimated GFR 72.73 (mL/min/1.73m2); Glucose 94 mg/dL (74-106); Potassium 3.5 mmol/L (3.5-5.1); Sodium 139 mmol/L (136-145)
== END 2024-11-17 16:40 | disposition home or self-care (01) ==
LOC: NCHCN 16:39
PROVIDERS: PCP Physician Assistant Medical; Visit Provider Physician Assistant Medical
DX: E87.6 Hypokalemia (principal)
CPT/HCPCS: 80048

== ENCOUNTER 2025-01-17 15:15 | Emergency (ER) | payer BC, SELFPAY ==
[2025-01-17 15:26] VITALS: BP 122/76; PULSE 70; RESP 19; TEMP 36.7; O2SAT 96
--- NOTE | 2025-01-17 15:45 | ED.GENADUL_ITS ---
Discharge Plan Disposition Patient Disposition: Home Discharge Details Clinical Impression: De Quervain's tenosynovitis, bilateral Primary Care Provider: David Lockhart ED Provider: Sidra Judge Home Meds and New Rx's Prescriptions: No Action fexofenadine 180 mg tablet 180 mg PO DAILY hydrochlorothiazide 12.5 mg capsule 12.5 mg PO DAILY chlorpheniramine maleate 4 mg tablet 4 mg PO Q6H PRN sumatriptan succinate [Imitrex] 100 MG tablet 100 mg PO ONCE PRN Rx Instructions: PRN clotrimazole-betamethasone [Lotrisone] 45 GM cream 45 gm Topical PRN montelukast [Singulair] 10 MG tablet 10 mg PO DAILY Rx Instructions: PRN seasonal albuterol sulfate [ProAir HFA] 8.5 GM HFA aerosol inhaler 2 puff Inhalation Q6H PRN Patient Comments: seasonal estradiol 1 EACH patch weekly 1 ea Transdermal . DIRECTED hydrocortisone valerate 15 GM cream 15 gm Topical BID (DME) BreatheRite MDI Spacer Spacer See Rx Instructions .Route Rx Instructions: As directed magnesium oxide 400 mg magnesium tablet 800 mg PO QHS (DME) Oxygen Tank See Rx Instructions .Route Rx Instructions: 1 unit as directed. Use 2-4L NC with conserving device. budesonide-formoterol [Symbicort] 160-4.5 mcg/actuation HFA aerosol inhaler 2 puff Inhalation BID memantine 10 mg tablet 10 mg PO BID Qty: 180 3RF galantamine 12 mg tablet See Rx Instructions .ROUTE .COMPLEX Qty: 180 3RF Dose Instruction: TAKE ONE TABLET BY MOUTH TWICE A DAY WITH MEALS Rx Instructions: TAKE ONE TABLET BY MOUTH TWICE A DAY WITH MEALS ibuprofen 600 mg tablet 600 mg PO Q6H PRN (Reason: Pain and inflammation) Qty: 60 0RF ipratropium bromide 21 mcg (0.03 %) spray,non-aerosol 2 spray INTRANASAL BID Patient Comments: SPRAY TWO SPRAYS IN EACH NOSTRIL TWICE A DAY sertraline 100 mg tablet 100 mg PO DAILY Patient Comments: TAKE ONE TABLET BY MOUTH EVERY DAY Rx Instructions: Take with 25 mg, total of 125 mg azelastine 137 mcg (0.1 %) spray,non-aerosol 2 spray INTRANASAL DAILY lamotrigine 25 mg tablet 50 mg PO DAILY Patient Comments: TAKE TWO TABLETS BY MOUTH EVERY DAY Discharge Instructions Instructions: de Quervain tendinopathy Additional Instructions: Please call your primary care provider first thing Saturday to schedule follow-up appointment. I would recommend asking for referral to physical therapy for hand therapy, as exercises and other treatment modalities may be helpful. For comfort I recommend using the bilateral thumb spica splints provided. It is most helpful if you use them throughout the day to help rest your hand/wrist. You may take Tylenol and ibuprofen as needed for discomfort. Topical Voltaren gel may be helpful. Alternate heat and ice to help with swelling Return to emergency care if you develop new fever/chills associated with hand pain, new redness/swelling or color change to your hand, or if you are very worried and need to be rechecked in Referrals: [facility] [Provider Group] David Lockhart PA [Primary Care Provider] - HPI General Date/Time Provider Initiated Documentation: 01/17/25 15:26 . HPI Narrative: Stacy is a 59-year-old female who presents to the emergency department today for evaluation of bilateral wrist and thumb pain. Pain radiates through wrists, now bilateral, worsening over weeks; however symptoms worsened after lifting a 5-gallon gas container. No history of acute trauma. Denies systemic symptoms such as fever/chills or general malaise, numbness, swelling, new wrist pain or elbow pain. Right hand more affected; she is right-hand dominant. Manages pain with ibuprofen. 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 Gusman at [facility], no recent orthopedic consult. Related Data Home Medications ?Medication ?Instructions ?Recorded ?Confirmed Imitrex 100 mg tablet (sumatriptan 100 mg PO ONCE PRN 03/28/15 01/17/25 succinate) Lotrisone 1 %-0.05 % topical cream 45 gm topical PRN 03/28/15 01/17/25 (clotrimazole-betamethasone) ProAir HFA 90 mcg/actuation 2 puff inhalation Q6H PRN 03/28/15 01/17/25 aerosol inhaler (albuterol sulfate) Singulair 10 mg tablet 10 mg PO DAILY 03/28/15 01/17/25 (montelukast) estradiol 0.1 mg/24 hr weekly 1 ea transdermal . DIRECTED 03/28/15 01/17/25 transdermal patch hydrocortisone valerate 0.2 % 15 gm topical BID 11/11/17 01/17/25 topical cream ibuprofen 600 mg tablet 600 mg PO Q6H PRN Pain and 08/11/21 01/17/25 inflammation #60 tabs inhalational spacing device 01/15/22 01/17/25 (BreatheRite MDI Spacer) magnesium oxide 800 mg PO QHS 01/15/22 01/17/25 fexofenadine 180 mg tablet 180 mg PO DAILY 04/02/22 01/17/25 Oxygen 12/04/22 01/17/25 budesonide-formoterol HFA 160 2 puff inhalation BID 12/13/22 01/17/25 mcg-4.5 mcg/actuation aerosol inhaler (Symbicort) hydrochlorothiazide 12.5 mg capsule 12.5 mg PO DAILY 12/13/22 01/17/25 chlorpheniramine maleate 4 mg 4 mg PO Q6H PRN 05/01/24 01/17/25 tablet memantine 10 mg tablet 10 mg PO BID #180 tabs 10/27/24 01/17/25 ipratropium bromide 21 mcg (0.03 2 spray intranasal BID 11/13/24 01/17/25 %) nasal spray sertraline 100 mg tablet 100 mg PO DAILY 11/13/24 01/17/25 galantamine 12 mg tablet See Rx Instructions .Route 01/07/25 01/17/25 .COMPLEX #180 tabs azelastine 137 mcg (0.1 %) nasal 2 spray intranasal DAILY 01/17/25 01/17/25 spray lamotrigine 25 mg tablet 50 mg PO DAILY 01/17/25 01/17/25 Previous Rx's ?Medication ?Instructions ?Recorded ibuprofen 600 mg tablet 600 mg PO Q6H PRN Pain and 08/11/21 inflammation #60 tabs memantine 10 mg tablet 10 mg PO BID #180 tabs 10/27/24 galantamine 12 mg tablet See Rx Instructions .Route 01/07/25 .COMPLEX #180 tabs Allergies Allergy/AdvReac Type Severity Reaction Status Date / Time latex Allergy Intermediate Skin Rash Verified 01/17/25 15:22 animal,grass,smoke,tree Allergy Unknown unknown Uncoded 01/17/25 15:22 pllen, molds contrast dye Allergy Unknown Unknown Uncoded 01/17/25 15:22 General Stated Complaint: Orthopedic YANETH: 4 Exam Narrative Exam Narrative: General Appearance: Alert, oriented, no acute distress. Respiratory: Easy work of breathing, able to speak in full sentences Vital signs: Within normal limits. Back, Musculoskeletal: No elbow or wrist pain on palpation or movement. Extremities: Pain elicited bilaterally with Estelle's maneuver. Sensation grossly intact to fingers. 5 out of 5 muscle strength to fingers. Full extension and flexion. No erythema, overlying skin lesions, or swelling. Brisk capillary refill. Skin: Warm and dry, no rash. Psychiatric: Normal. Course Vital Signs Vital signs: Vital Signs Temperature 36.7 C 01/17/25 15:26 Pulse 70 01/17/25 15:26 Respiratory Rate 19 01/17/25 15:26 Blood Pressure 122/76 01/17/25 15:26 Pulse Oximetry 96 01/17/25 15:26 Temperature 36.7 C 01/17/25 15:26 Temperature Source Oral 01/17/25 15:26 Pulse 70 01/17/25 15:26 Respiratory Rate 19 01/17/25 15:26 Blood Pressure 122/76 01/17/25 15:26 Blood Pressure Position Sitting 01/17/25 15:26 Pulse Oximetry 96 01/17/25 15:26 Oxygen Delivery Method Room Air 01/17/25 15:26 Oxygen Flow Rate 0 01/17/25 15:26 Pain Level 5 01/17/25 15:26 Medical Decision Making Initial Assessment: Stacy, a 59-year-old female, presents with bilateral wrist and thumb pain, worsened by lifting and yard work. No swelling or redness observed, pain with certain movements and palpation. Positive bilateral Estelle test. History and presentation consistent with de Quervain's tenosynovitis. No red flags concerning for trauma or neurovascular compromise requiring emergent diagnostic imaging. No red flags concerning for infectious etiology/septic joint. ED Course: - Physical exam reassuring: Patient alert and oriented, in no acute distress. No overlying erythema or swelling. Brisk cap refill. Positive Estelle test bilaterally. No pain with palpation or movement of elbow or wrist. - Provided wrist splints with thumb support for 1-2 weeks; then reassess for continued use as needed - Recommended continuation of ibuprofen. - Suggested Voltaren gel (diclofenac) for inflammation. - Referral for physical therapy. - Advised to contact primary care at [facility] for further management/PT referral - Instructed to seek immediate attention for new symptoms like significant swelling, numbness, color change, or fevers with new pain. Final Assessment: Bilateral de Quervain's tenosynovitis, exacerbated by recent lifting and yard work. Treatment includes wrist splints, ibuprofen, Voltaren gel, and referral for physical therapy. Clinical Impression: - Bilateral de Quervain's tenosynovitis Disposition: - Discharge - Follow-Up: Contact primary care at [facility] for further management and referral for physical therapy. MDM Components Evaluation: - Number of Differential Diagnoses or Management Options: Bilateral de Quervain's tenosynovitis - Amount and Complexity of Data Reviewed: Physical exam findings, patient history - Risk of Complication and Morbidity or Mortality: Low risk, but advised to seek immediate attention for significant swelling, numbness, color change, or fevers with new pain. Patient consented to the use of CLAUDINE Quality:[facility] Health Related Social Needs: No Data to Display [facility] All Active Problems (Updated 01/17/25 @ 15:48 by Sidra Olguin) De Quervain's tenosynovitis, bilateral (Acute) Porokeratosis (Acute) Achilles tendon contracture, bilateral (Acute) Screening for colorectal cancer (Chronic) 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) Allergic rhinitis (Chronic 11/04/13) Postnasal drip (Chronic 04/05/14) Mild cognitive impairment (Chronic) Allergic fungal sinusitis (Acute 07/20/13) Allergic rhinitis due to pollen (Chronic 08/08/15) Closed nondisplaced avulsion fracture of tuberosity of right calcaneus (Acute 06/09/18) Because of persistent symptoms and tenderness over the anterior talus i think repeat x-rays are indicated to rule out an osteochondral injury to the talus. These are performed today and appear normal. I inform the patient that it will take along time before she is asymptomatic. I recommend a trial of topricin to help with the discomfort. follow-up with me an needed. Hallux valgus (acquired), left foot (Acute) COVID-19 virus infection (Acute) Cough (Acute) Sore throat (Acute) COVID-19 long hauler (Acute) Corns and callosities (Acute) Pain, foot (Acute) right Loose stools (Acute) RAD (reactive airway disease) (Acute) Dyspnea (Acute) Oxygen desaturation (Acute) Hypokalemia (Acute) Lumbar pain (Acute) Osteoarthritis (Chronic) shoulder Keratosis pilaris (Acute) Orthostasis (Acute) positional Folliculitis (Acute) presumed fungal Rotator cuff syndrome of right shoulder (Acute) Herpes labialis (Acute) Unspecified contraceptive management (Acute) Insomnia (Acute) Fatigue (Acute) Hair loss (Acute) Memory impairment (Acute) Kidney stones (Chronic) Irregular menses (Acute) Osteoporosis (Chronic) Postherpetic neuralgia (Acute) Rhinitis, chronic (Acute) Environmental allergies (Acute) Asthma, severe persistent (Acute) Medical History Tachycardia NOC Asthma History of kidney stones History of gastroesophageal reflux (GERD) Chondromalacia Depression Migraine Surgical History Hx of shoulder surgery Knee surgery Colonoscopy - IV Sedation (05/27/15) SALLY ARAYA Family History Other Personal history of malignant neoplasm Social History Smoking/Tobacco Use Status: Never Second Hand Exposure: Yes (occasionally) Smoking risk assessment performed?: Yes Alcohol Intake: current Alcohol Intake frequency: holidays/special occasions only Drug use: Never Substance use type: does not use Housing: house 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
== END 2025-01-17 16:12 | disposition home or self-care (01) ==
PROVIDERS: Emergency Provider Nurse Practitioner Family; PCP Physician Assistant Medical
DX: M65.4 Radial styloid tenosynovitis [de Quervain] (principal)
CPT/HCPCS: 99283

== ENCOUNTER 2025-02-05 00:22 | Outpatient (CLI) | payer BC, SELFPAY ==
--- NOTE | 2025-02-05 | DI.RAD_ITS ---
Exam(s) XR WRIST RT COMPLETE EXAM: XR WRIST RT COMPLETE CLINICAL HISTORY: RT WRIST PAIN,M25.531,? DJD, RADIAL TENOSYNOVITIS. TECHNIQUE: 2D digital imaging was performed. COMPARISON: CR XR WRIST LT COMPLETE from 02/05/2025 FINDINGS: 3 views No evidence of fracture or dislocation nor significant ulnar variance. Scaphoid and scapholunate distance appear unremarkable. Radiocarpal joint unremarkable. First carpometacarpal joint unremarkable. Hook of the hamate is intact. IMPRESSION: No significant osseous findings in the right wrist. DATA REPOSITORY: RADIATION DOSE DELIVERED:
--- NOTE | 2025-02-05 | DI.RAD_ITS ---
Exam(s) XR WRIST LT COMPLETE EXAM: XR WRIST LT COMPLETE CLINICAL HISTORY: LT WRIST PAIN, M25.532,? DJD,RADIAL TENOSYNOVITIS. TECHNIQUE: 2D digital imaging was performed. COMPARISON: CR XR WRIST RT COMPLETE from 02/05/2025 FINDINGS: 3 views No evidence of fracture nor dislocation nor significant ulnar variance. Scaphoid and scapholunate distance are normal. There is linear lucency in the subcortical region in the distal most lateral aspect of the radius. Similar findings seen in the opposite-right wrist. There are no degenerative changes in the radiocarpal joint. IMPRESSION: No significant osseous findings in the left wrist. DATA REPOSITORY: RADIATION DOSE DELIVERED:
== END 2025-02-05 00:42 ==
LOC: DI 00:22
PROVIDERS: PCP Physician Assistant Medical; Visit Provider Family Medicine
DX: M25.531 Pain in right wrist (principal); M25.532 Pain in left wrist
CPT/HCPCS: 73110

== ENCOUNTER 2025-02-22 14:07 | Outpatient (CLI) | payer BC, SELFPAY ==
--- NOTE | 2025-02-22 | DI.MRI_ITS ---
Exam(s) MR UPPER JOINT RT WO EXAM: MR UPPER JOINT RT WO CLINICAL HISTORY: RIGHT WRIST PAIN, M25.531 CONSISTENT W TENOSYNOVITIS, NO IMPR W TX. TECHNIQUE: Multiplanar multisequence MRI was performed. COMPARISON: None. FINDINGS: Bones: There is no fracture or contusion. The radiocarpal, intercarpal and carpometacarpal joint spaces are preserved. There are few tiny degenerative cysts in the triquetrum. There is no appreciable joint effusion. Ligaments: The TFCC is intact. Both the scapholunate and lunotriquetral ligaments are intact. Radial and ulnar collateral ligaments of the thumb appear intact. Musculoskeletal Structures: There is no muscle atrophy. There are no muscular strains seen. The visualized median nerve appears to be within normal limits and is normally located within the carpal tunnel. There is mild edema in the soft tissues at the lateral carpal region. There is mild thickening of the abductor pollicis longus tendon near the level of the radial styloid. There is no fluid within the tendon sheath. Findings are consistent with mild tendinosis. Remaining tendons appear intact. IMPRESSION: Mild tendinosis of the abductor pollicis longus. Mild adjacent soft tissue edema but no fluid in the tendon sheath. DATA REPOSITORY:
== END 2025-02-22 14:27 ==
LOC: DI 14:08
PROVIDERS: PCP Physician Assistant Medical; Visit Provider Family Medicine
DX: M67.833 Other specified disorders of tendon, right wrist (principal)
CPT/HCPCS: 73221

== ENCOUNTER 2025-03-18 02:45 | Outpatient (CLI) | payer BC, SELFPAY ==
[2025-03-18 14:36] LABS: Anion Gap 7.5 mmol/L (3-11); BUN 12 mg/dL (7-18); CO2 29.5 mmol/L (21.0-32.0); Calcium 9.0 mg/dL (8.5-10.1); Chloride 102 mmol/L (98-107); Estimated GFR 72.73 (mL/min/1.73m2); Glucose 93 mg/dL (74-106); Potassium 4.0 mmol/L (3.5-5.1); Sodium 139 mmol/L (136-145)
== END 2025-03-18 02:46 | disposition home or self-care (01) ==
LOC: LBO 02:45
PROVIDERS: PCP Physician Assistant Medical; Visit Provider Urology
DX: N20.0 Calculus of kidney (principal)
CPT/HCPCS: 36415; 80048

== ENCOUNTER 2025-06-18 03:12 | Outpatient (CLI) | payer BC, SELFPAY ==
--- NOTE | 2025-06-18 15:08 | DI.RAD_ITS ---
Exam(s) XR LUMBAR SPINE COMPLETE EXAM: XR LUMBAR SPINE COMPLETE CLINICAL HISTORY: BILAT LOW BACK PAIN WITH BILAT SCIATICA,M54.42,M54.41. TECHNIQUE: 2D digital imaging was performed. Five views. COMPARISON: No exams were available for comparison FINDINGS: BONES: No fracture or destructive lesion. Vertebral body heights are maintained. There are facet degenerative changes at L4-5, greater on the right. DISKS: Intervertebral disc spaces are maintained. ALIGNMENT: Lumbar spinal alignment is within normal limits. SOFT TISSUE: IUD. IMPRESSION: Mild facet degenerative changes at L4-5. DATA REPOSITORY: RADIATION DOSE DELIVERED:
== END 2025-06-18 03:32 ==
PROVIDERS: PCP Physician Assistant Medical; Visit Provider Physician Assistant Medical
DX: M54.42 Lumbago with sciatica, left side (principal); M47.816 Spondylosis without myelopathy or radiculopathy, lumbar region
CPT/HCPCS: 72110

== ENCOUNTER 2025-06-29 13:12 | Outpatient (REF) | payer BC, SELFPAY ==
[2025-06-29 15:40] LABS: Abs Immature Grans 0.01 10^3/uL (0.0-0.06); HCT 41.6 % (36.0-46.0); HGB 13.8 g/dL (11.2-15.7); Immature Grans % 0.2 %; MCH 30.5 pg (27.0-33.0); MCHC 33.2 % (32.0-36.0); MCV 92 fL (80-95); MPV 9.4 fL (8.0-11.0); Platelet Count 257 10^3/uL (130-400); RBC 4.53 10^6/uL (3.93-5.22); RDW 13.4 % (11.7-14.6); RDW-SD 45.4 fL; WBC 4.37 10^3/uL (4.4-10.8)
[2025-06-29 16:08] LABS: ALT 25 U/L (14-59); AST 20 U/L (15-37); Albumin 3.8 g/dL (3.4-5.0); Alkaline Phosphatase 69 U/L (46-116); Anion Gap 7.5 mmol/L (3-11); BUN 11 mg/dL (7-18); Bilirubin, Total 0.3 mg/dL (0.2-1.0); CO2 29.5 mmol/L (21.0-32.0); Calcium 9.0 mg/dL (8.5-10.1); Chloride 103 mmol/L (98-107); Glucose 85 mg/dL (74-106); Potassium 4.2 mmol/L (3.5-5.1); Sodium 140 mmol/L (136-145); Total Protein 7.1 g/dL (6.4-8.2)
== END 2025-06-29 13:13 | disposition home or self-care (01) ==
LOC: LBN 13:12
PROVIDERS: PCP Physician Assistant Medical; Visit Provider Nurse Practitioner Family
DX: R55 Syncope and collapse (principal)
CPT/HCPCS: 80053; 85025